=== PATIENT | male | born 1960 | race Caucasian/White ===

== ENCOUNTER → 2020-12-03 09:00 | Outpatient (REF) | payer MEDICARE, SELFPAY | LOC: OLS.SANC 09:00 | PROVIDERS: Visit Provider Family Medicine | DX: R60.0 Localized edema (principal); T14.8XXA Other injury of unspecified body region, initial encounter | CPT/HCPCS: 87070; 87077; 87186; 87205 ==

== ENCOUNTER → 2021-01-14 05:00 | Outpatient (REF) | payer MEDICARE, SELFPAY ==
[2021-01-14 09:40] LABS: Hematocrit 42.8 % (40-54); Hemoglobin 14.4 g/dL (13.0-16.5); Mean Corp Hgb Conc 33.6 g/dL (32-36); Mean Corpuscular Hgb 29.4 pg (27.0-32.0); Mean Corpuscular Volume 87.5 fL (80-94); Mean Platelet Vol. 11.5 fl (6.2-12.0); Platelet Count 141 K/mm3 (150-450); RBC Distribution Width CV 13.1 % (11.6-14.6); RBC Distribution Width SD 41.6 fl (35.1-43.9); Red Blood Count 4.89 M/mm3 (4.6-6.2)
[2021-01-14 10:22] LABS: Valproic Acid (Depakene) Level 51 ug/mL (50-100)
== END ==
LOC: OLS.SANC 05:00
PROVIDERS: Visit Provider Family Medicine
DX: I10 Essential (primary) hypertension (principal); E78.5 Hyperlipidemia, unspecified
CPT/HCPCS: 36415; 80164; 85027

== ENCOUNTER → 2021-04-06 04:00 | Outpatient (REF) | payer MEDICARE, SELFPAY ==
[2021-04-06 07:46] LABS: Cholesterol 178 mg/dL (200); High Density Lipoprotein 38 mg/dL; Triglycerides 166 mg/dL; Very Low Density Lipoprotein 33 mg/dL (5-40)
== END ==
LOC: OLS.SANC 04:00
DX: E78.5 Hyperlipidemia, unspecified (principal)
CPT/HCPCS: 36415; 80061

== ENCOUNTER 2021-06-08 05:00 | Outpatient (REF) | payer MEDICARE, SELFPAY ==
[2021-06-08 07:09] LABS: Anion Gap 7 (5-15); BUN 9 mg/dL (7-18); BUN/Creat Ratio 10.1 RATIO (10-20); Calcium,Total 8.7 mg/dL (8.5-10.1); Chloride 105 mmol/L (98-107); Creatinine, Serum 0.89 mg/dL (0.70-1.30); EST Glomerular Filtration Rate 93 mL/min (>60); Est Glom Filt Rate - Afr Amer 112 mL/min (>60); Glucose 101 mg/dL (74-106); Potassium 3.5 mmol/L (3.5-5.1); Sodium Level 142 mmol/L (136-145)
== END 2021-06-08 23:59 | disposition home or self-care (01) ==
LOC: OLS.SANC 05:00
PROVIDERS: Visit Provider Internal Medicine
DX: E78.5 Hyperlipidemia, unspecified (principal); E87.6 Hypokalemia
CPT/HCPCS: 36415; 80048

== ENCOUNTER → 2021-09-17 05:00 | Outpatient (REF) | payer MEDICARE, MEDICAID, SELFPAY ==
[2021-09-17 09:33] LABS: Vitamin D,25 Hydroxy 65.4 ng/mL
[2021-09-17 09:34] LABS: Anion Gap 5 (5-15); BUN 23 mg/dL (7-18); BUN/Creat Ratio 19.3 RATIO (10-20); Calcium,Total 9.2 mg/dL (8.5-10.1); Chloride 105 mmol/L (98-107); Creatinine, Serum 1.19 mg/dL (0.70-1.30); EST Glomerular Filtration Rate 67 mL/min (>60); Est Glom Filt Rate - Afr Amer 81 mL/min (>60); Glucose 125 mg/dL (74-106); Potassium 4.6 mmol/L (3.5-5.1); Sodium Level 138 mmol/L (136-145)
== END ==
LOC: OLS.SANC 05:00
PROVIDERS: Visit Provider Family Medicine
DX: I10 Essential (primary) hypertension (principal); E55.9 Vitamin D deficiency, unspecified; E78.5 Hyperlipidemia, unspecified
CPT/HCPCS: 36415; 80048; 82306

== ENCOUNTER → 2021-09-27 04:00 | Outpatient (REF) | payer MEDICARE, MEDICAID, SELFPAY ==
[2021-09-27 09:28] LABS: Hematocrit 43.6 % (40-54); Hemoglobin 14.7 g/dL (13.0-16.5); Mean Corp Hgb Conc 33.7 g/dL (32-36); Mean Corpuscular Hgb 31.7 pg (27.0-32.0); Mean Corpuscular Volume 94.2 fL (80-94); Mean Platelet Vol. 11.7 fl (6.2-12.0); Platelet Count 201 K/mm3 (150-450); RBC Distribution Width CV 12.9 % (11.6-14.6); RBC Distribution Width SD 43.9 fl (35.1-43.9); Red Blood Count 4.63 M/mm3 (4.6-6.2); White Blood Count 9.3 K/mm3 (4.4-11.0)
[2021-09-27 10:06] LABS: Valproic Acid (Depakene) Level 56 ug/mL (50-100)
[2021-09-27 10:10] LABS: Cholesterol 137 mg/dL (200); High Density Lipoprotein 47 mg/dL; Triglycerides 116 mg/dL; Very Low Density Lipoprotein 23 mg/dL (5-40)
== END ==
LOC: OLS.SANC 04:00
PROVIDERS: Referring Provider Family Medicine; Visit Provider Family Medicine
DX: I10 Essential (primary) hypertension (principal); E78.5 Hyperlipidemia, unspecified
CPT/HCPCS: 36415; 80061; 80164; 85027

== ENCOUNTER → 2021-11-17 | Outpatient (REF) | payer MEDICARE, MEDICAID, SELFPAY ==
[2021-11-17 09:25] LABS: Anion Gap 5 (5-15); BUN 28 mg/dL (7-18); BUN/Creat Ratio 22.6 RATIO (10-20); Calcium,Total 8.6 mg/dL (8.5-10.1); Chloride 107 mmol/L (98-107); Creatinine, Serum 1.24 mg/dL (0.70-1.30); EST Glomerular Filtration Rate 63 mL/min (>60); Est Glom Filt Rate - Afr Amer 77 mL/min (>60); Glucose 116 mg/dL (74-106); Potassium 4.8 mmol/L (3.5-5.1); Sodium Level 137 mmol/L (136-145)
== END ==
LOC: OLS.SANC 05:00
PROVIDERS: Visit Provider Family Medicine
DX: I10 Essential (primary) hypertension (principal); E78.5 Hyperlipidemia, unspecified; E87.6 Hypokalemia
CPT/HCPCS: 36415; 80048

== ENCOUNTER → 2022-01-17 | Outpatient (REF) | payer MEDICARE, MEDICAID, SELFPAY ==
[2022-01-17 09:28] LABS: Anion Gap 8 (5-15); BUN 23 mg/dL (7-18); BUN/Creat Ratio 19.3 RATIO (10-20); Calcium,Total 8.9 mg/dL (8.5-10.1); Chloride 100 mmol/L (98-107); Creatinine, Serum 1.19 mg/dL (0.70-1.30); EST Glomerular Filtration Rate 67 mL/min (>60); Est Glom Filt Rate - Afr Amer 80 mL/min (>60); Glucose 120 mg/dL (74-106); Potassium 4.7 mmol/L (3.5-5.1); Sodium Level 136 mmol/L (136-145)
== END ==
LOC: OLS.SANC 04:00
PROVIDERS: Referring Provider Family Medicine; Visit Provider Family Medicine
DX: Z79.899 Other long term (current) drug therapy (principal)
CPT/HCPCS: 36415; 80048

== ENCOUNTER → 2022-02-10 | Outpatient (REF) | payer MEDICARE, MEDICAID, SELFPAY ==
[2022-02-10 09:39] LABS: Absolute Lymphocyte Count 3.53 X10^3/uL (0.83-4.51); Absolute Neutrophil Count 3.4 X10^3/uL (2.0-7.7); Basophil# 0.07 X10^3/uL; Basophil% 0.9 % (0-1); Eosinophils% 3.8 % (0-5); Hematocrit 40.3 % (40-54); Hemoglobin 13.8 g/dL (13.0-16.5); Lymphocyte # 3.53 X10^3/ul (0.83-4.51); Lymphocyte % 44.5 % (19-41); Mean Corp Hgb Conc 34.2 g/dL (32-36); Mean Corpuscular Hgb 31.7 pg (27.0-32.0); Mean Corpuscular Volume 92.4 fL (80-94); Mean Platelet Vol. 11.2 fl (6.2-12.0); Monocyte# 0.59 X10^3/uL; Monocyte% 7.4 % (0-10); NRBC Flagged by Analyzer 0 % (0-5); Neutrophil % 42.8 % (47-70); Platelet Count 165 K/mm3 (150-450); RBC Distribution Width CV 12.7 % (11.6-14.6); RBC Distribution Width SD 41.3 fl (35.1-43.9); Red Blood Count 4.36 M/mm3 (4.6-6.2); White Blood Count 7.9 K/mm3 (4.4-11.0)
[2022-02-10 10:24] LABS: AST(SGOT) 14 U/L (15-37); Alanine Aminotransfer ALT/SGPT 26 U/L (16-61); Albumin, Serum 3.3 g/dL (3.2-5.0); Alkaline Phosphatase 69 U/L (45-117); Bilirubin, Direct 0.12 mg/dL (0.00-0.30); Globulin 3.3 g/dL (2.2-4.2); Protein, Total 6.6 g/dL (6.4-8.2)
== END ==
LOC: OLS.SANC 05:00
PROVIDERS: Visit Provider Family Medicine
DX: L97.221 Non-pressure chronic ulcer of left calf limited to breakdown of skin (principal)
CPT/HCPCS: 36415; 80076; 85025

== ENCOUNTER → 2022-02-17 | Outpatient (REF) | payer MEDICARE, MEDICAID, SELFPAY ==
[2022-02-17 08:59] LABS: Anion Gap 7 (5-15); BUN 26 mg/dL (7-18); BUN/Creat Ratio 20.6 RATIO (10-20); Calcium,Total 8.9 mg/dL (8.5-10.1); Chloride 102 mmol/L (98-107); Creatinine, Serum 1.26 mg/dL (0.70-1.30); EST Glomerular Filtration Rate 62 mL/min (>60); Est Glom Filt Rate - Afr Amer 75 mL/min (>60); Glucose 117 mg/dL (74-106); Potassium 4.8 mmol/L (3.5-5.1); Sodium Level 137 mmol/L (136-145)
== END ==
LOC: OLS.SANC 05:00
PROVIDERS: Visit Provider Family Medicine
DX: L03.115 Cellulitis of right lower limb (principal); L03.116 Cellulitis of left lower limb; M25.50 Pain in unspecified joint
CPT/HCPCS: 36415; 80048

== ENCOUNTER → 2022-03-14 | Outpatient (REF) | payer MEDICARE, MEDICAID, SELFPAY ==
[2022-03-14 10:30] LABS: Hematocrit 40.9 % (40-54); Hemoglobin 14.2 g/dL (13.0-16.5); Mean Corp Hgb Conc 34.7 g/dL (32-36); Mean Corpuscular Hgb 32.1 pg (27.0-32.0); Mean Corpuscular Volume 92.5 fL (80-94); Mean Platelet Vol. 11.6 fl (6.2-12.0); Platelet Count 187 K/mm3 (150-450); RBC Distribution Width SD 43.4 fl (35.1-43.9); Red Blood Count 4.42 M/mm3 (4.6-6.2); White Blood Count 8.7 K/mm3 (4.4-11.0)
[2022-03-14 10:44] LABS: Cholesterol 144 mg/dL (200); High Density Lipoprotein 42 mg/dL; Triglycerides 142 mg/dL; Very Low Density Lipoprotein 28 mg/dL (5-40)
[2022-03-14 10:45] LABS: Valproic Acid (Depakene) Level 35 ug/mL (50-100)
== END ==
LOC: OLS.SANC 05:00
PROVIDERS: Visit Provider Internal Medicine
DX: I10 Essential (primary) hypertension (principal); E78.5 Hyperlipidemia, unspecified
CPT/HCPCS: 36415; 80061; 80164; 85027

== ENCOUNTER → 2022-04-19 | Outpatient (REF) | payer MEDICARE, MEDICAID, SELFPAY ==
[2022-04-19 10:17] LABS: Anion Gap 7 (5-15); BUN 30 mg/dL (7-18); BUN/Creat Ratio 23.6 RATIO (10-20); Calcium,Total 9.1 mg/dL (8.5-10.1); Chloride 107 mmol/L (98-107); Creatinine, Serum 1.27 mg/dL (0.70-1.30); EST Glomerular Filtration Rate 62 mL/min (>60); Est Glom Filt Rate - Afr Amer 75 mL/min (>60); Glucose 159 mg/dL (74-106); Potassium 5.7 mmol/L (3.5-5.1); Sodium Level 135 mmol/L (136-145)
== END ==
LOC: OLS.SANC 07:35
PROVIDERS: Visit Provider Internal Medicine
DX: I10 Essential (primary) hypertension (principal); E78.5 Hyperlipidemia, unspecified
CPT/HCPCS: 36415; 80048

== ENCOUNTER → 2022-04-22 | Outpatient (REF) | payer MEDICARE, MEDICAID, SELFPAY ==
[2022-04-22 09:38] LABS: Anion Gap 8 (5-15); BUN 33 mg/dL (7-18); BUN/Creat Ratio 24.3 RATIO (10-20); Chloride 103 mmol/L (98-107); Creatinine, Serum 1.36 mg/dL (0.70-1.30); EST Glomerular Filtration Rate 57 mL/min (>60); Est Glom Filt Rate - Afr Amer 69 mL/min (>60); Glucose 154 mg/dL (74-106); Potassium 4.9 mmol/L (3.5-5.1); Sodium Level 136 mmol/L (136-145)
== END ==
LOC: OLS.SANC 05:00
PROVIDERS: Visit Provider Internal Medicine
DX: M25.50 Pain in unspecified joint (principal)
CPT/HCPCS: 36415; 80048

== ENCOUNTER → 2022-04-29 | Outpatient (REF) | payer MEDICARE, MEDICAID, SELFPAY ==
[2022-04-29 07:59] LABS: Hematocrit 38.3 % (40-54); Hemoglobin 12.6 g/dL (13.0-16.5); Mean Corp Hgb Conc 32.9 g/dL (32-36); Mean Corpuscular Hgb 31.1 pg (27.0-32.0); Mean Corpuscular Volume 94.6 fL (80-94); Mean Platelet Vol. 11.1 fl (6.2-12.0); Platelet Count 165 K/mm3 (150-450); RBC Distribution Width CV 13.1 % (11.6-14.6); RBC Distribution Width SD 44.2 fl (35.1-43.9); Red Blood Count 4.05 M/mm3 (4.6-6.2); White Blood Count 8.7 K/mm3 (4.4-11.0)
[2022-04-29 08:15] LABS: Anion Gap 6 (5-15); BUN 30 mg/dL (7-18); BUN/Creat Ratio 18.6 RATIO (10-20); Calcium,Total 8.7 mg/dL (8.5-10.1); Chloride 105 mmol/L (98-107); Creatinine, Serum 1.61 mg/dL (0.70-1.30); EST Glomerular Filtration Rate 47 mL/min (>60); Est Glom Filt Rate - Afr Amer 57 mL/min (>60); Glucose 125 mg/dL (74-106); Potassium 4.6 mmol/L (3.5-5.1); Sodium Level 137 mmol/L (136-145)
== END ==
LOC: OLS.SANC 05:00
PROVIDERS: Visit Provider Internal Medicine
DX: I10 Essential (primary) hypertension (principal); E78.5 Hyperlipidemia, unspecified
CPT/HCPCS: 36415; 80048; 85027

== ENCOUNTER → 2022-05-13 | Outpatient (REF) | payer MEDICARE, MEDICAID, SELFPAY ==
[2022-05-13 09:07] LABS: Hematocrit 39.6 % (40-54); Hemoglobin 12.9 g/dL (13.0-16.5); Mean Corp Hgb Conc 32.6 g/dL (32-36); Mean Corpuscular Hgb 31.3 pg (27.0-32.0); Mean Corpuscular Volume 96.1 fL (80-94); Mean Platelet Vol. 11.8 fl (6.2-12.0); Platelet Count 172 K/mm3 (150-450); RBC Distribution Width CV 13.2 % (11.6-14.6); RBC Distribution Width SD 45.3 fl (35.1-43.9); Red Blood Count 4.12 M/mm3 (4.6-6.2)
[2022-05-13 09:16] LABS: Anion Gap 8 (5-15); BUN 26 mg/dL (7-18); BUN/Creat Ratio 18.6 RATIO (10-20); Chloride 104 mmol/L (98-107); EST Glomerular Filtration Rate 55 mL/min (>60); Est Glom Filt Rate - Afr Amer 67 mL/min (>60); Glucose 116 mg/dL (74-106); Potassium 4.9 mmol/L (3.5-5.1); Sodium Level 139 mmol/L (136-145)
== END ==
LOC: OLS.SANC 05:00
PROVIDERS: Visit Provider Internal Medicine
DX: I10 Essential (primary) hypertension (principal); E78.5 Hyperlipidemia, unspecified
CPT/HCPCS: 36415; 80048; 85027

== ENCOUNTER → 2022-05-20 | Outpatient (REF) | payer MEDICARE, MEDICAID, SELFPAY ==
[2022-05-20 09:46] LABS: Anion Gap 7 (5-15); BUN 31 mg/dL (7-18); BUN/Creat Ratio 20.7 RATIO (10-20); Calcium,Total 8.9 mg/dL (8.5-10.1); Chloride 105 mmol/L (98-107); EST Glomerular Filtration Rate 51 mL/min (>60); Est Glom Filt Rate - Afr Amer 62 mL/min (>60); Glucose 144 mg/dL (74-106); Potassium 4.9 mmol/L (3.5-5.1); Sodium Level 138 mmol/L (136-145)
== END ==
LOC: OLS.SANC 05:00
PROVIDERS: Visit Provider Internal Medicine
DX: I10 Essential (primary) hypertension (principal); E78.5 Hyperlipidemia, unspecified
CPT/HCPCS: 36415; 80048

== ENCOUNTER → 2022-06-30 | Outpatient (REF) | payer MEDICARE, MEDICAID, SELFPAY ==
[2022-06-30 08:56] LABS: Hematocrit 35.6 % (40-54); Hemoglobin 11.7 g/dL (13.0-16.5); Mean Corp Hgb Conc 32.9 g/dL (32-36); Mean Corpuscular Volume 94.2 fL (80-94); Mean Platelet Vol. 10.6 fl (6.2-12.0); Platelet Count 277 K/mm3 (150-450); RBC Distribution Width SD 46.9 fl (35.1-43.9); Red Blood Count 3.78 M/mm3 (4.6-6.2); White Blood Count 6.2 K/mm3 (4.4-11.0)
[2022-06-30 09:14] LABS: ALB/GLOB Ratio 0.8 RATIO (0.9-2.4); AST(SGOT) 15 U/L (15-37); Alanine Aminotransfer ALT/SGPT 24 U/L (16-61); Albumin, Serum 2.7 g/dL (3.2-5.0); Alkaline Phosphatase 77 U/L (45-117); Amylase 62 U/L (25-115); Anion Gap 8 (5-15); BUN 14 mg/dL (7-18); BUN/Creat Ratio 15.4 RATIO (10-20); Calcium,Total 8.9 mg/dL (8.5-10.1); Chloride 103 mmol/L (98-107); Creatinine, Serum 0.91 mg/dL (0.70-1.30); EST Glomerular Filtration Rate 91 mL/min (>60); Est Glom Filt Rate - Afr Amer 110 mL/min (>60); Globulin 3.5 g/dL (2.2-4.2); Glucose 120 mg/dL (74-106); Lipase 777 U/L (73-393); Potassium 4.5 mmol/L (3.5-5.1); Protein, Total 6.2 g/dL (6.4-8.2); Sodium Level 139 mmol/L (136-145)
== END ==
LOC: OLS.SANC 05:00
PROVIDERS: Visit Provider Family Medicine
DX: I10 Essential (primary) hypertension (principal); E87.6 Hypokalemia; K85.90 Acute pancreatitis without necrosis or infection, unspecified
CPT/HCPCS: 36415; 80053; 82150; 83690; 85027

== ENCOUNTER → 2022-07-18 | Outpatient (REF) | payer MEDICARE, MEDICAID, SELFPAY ==
[2022-07-19 08:58] LABS: Color, Urine Brown (Yellow); Glucose, Dipstick Normal (Normal); Ketone-Dipstick 15 mg/dl (Negative); Leukocyte Esterase-Dipstick 500 /ul (Negative); Nitrite-Dipstick Positive (Negative); Occult Blood-Urine 250 /ul (Negative); Protein-Dipstick 100 mg/dl (Negative); Urine Bilirubin Dipstick Negative (Negative); Urine Clarity Turbid (Clear); Urine Urobilinogen 4 mg/dl (Normal)
== END ==
LOC: OLS.SANC 20:00
PROVIDERS: Visit Provider Internal Medicine
DX: R39.9 Unspecified symptoms and signs involving the genitourinary system (principal)
CPT/HCPCS: 81002; 87077; 87086; 87088; 87186

== ENCOUNTER → 2022-07-18 | Outpatient (REF) | payer MEDICARE, MEDICAID, SELFPAY ==
[2022-07-18 08:35] LABS: Valproic Acid (Depakene) Level 42 ug/mL (50-100)
== END ==
LOC: OLS.SANC 05:00
PROVIDERS: Visit Provider Internal Medicine
DX: I10 Essential (primary) hypertension (principal); E78.5 Hyperlipidemia, unspecified; Z79.899 Other long term (current) drug therapy
CPT/HCPCS: 36415; 80164

== ENCOUNTER → 2022-07-28 | Outpatient (REF) | payer MEDICARE, MEDICAID, SELFPAY ==
[2022-07-28 08:23] LABS: Hematocrit 35.7 % (40-54); Hemoglobin 11.6 g/dL (13.0-16.5); Mean Corp Hgb Conc 32.5 g/dL (32-36); Mean Corpuscular Hgb 30.4 pg (27.0-32.0); Mean Corpuscular Volume 93.5 fL (80-94); Mean Platelet Vol. 11.1 fl (6.2-12.0); Platelet Count 204 K/mm3 (150-450); RBC Distribution Width CV 14.1 % (11.6-14.6); RBC Distribution Width SD 47.2 fl (35.1-43.9); Red Blood Count 3.82 M/mm3 (4.6-6.2); White Blood Count 7.2 K/mm3 (4.4-11.0)
[2022-07-28 08:34] LABS: Anion Gap 4 (5-15); BUN 13 mg/dL (7-18); BUN/Creat Ratio 13.1 RATIO (10-20); Calcium,Total 8.9 mg/dL (8.5-10.1); Chloride 107 mmol/L (98-107); Creatinine, Serum 0.99 mg/dL (0.70-1.30); EST Glomerular Filtration Rate 82 mL/min (>60); Est Glom Filt Rate - Afr Amer 99 mL/min (>60); Glucose 95 mg/dL (74-106); Potassium 4.4 mmol/L (3.5-5.1); Sodium Level 136 mmol/L (136-145)
== END ==
LOC: OLS.SANC 05:00
PROVIDERS: Visit Provider Internal Medicine
DX: I10 Essential (primary) hypertension (principal); E78.5 Hyperlipidemia, unspecified
CPT/HCPCS: 36415; 80048; 85027

== ENCOUNTER → 2022-08-01 | Outpatient (REF) | payer MEDICARE, MEDICAID, SELFPAY ==
[2022-08-01 10:38] LABS: AST(SGOT) 18 U/L (15-37); Alanine Aminotransfer ALT/SGPT 26 U/L (16-61); Albumin, Serum 3.1 g/dL (3.2-5.0); Alkaline Phosphatase 62 U/L (45-117); Amylase 50 U/L (25-115); Bilirubin, Direct 0.14 mg/dL (0.00-0.30); Globulin 3.3 g/dL (2.2-4.2); Lipase 45 U/L (13-75); Protein, Total 6.4 g/dL (6.4-8.2)
== END ==
LOC: OLS.SANC 04:00
PROVIDERS: Referring Provider Internal Medicine; Visit Provider Internal Medicine
DX: I10 Essential (primary) hypertension (principal); E78.5 Hyperlipidemia, unspecified
CPT/HCPCS: 36415; 80076; 82150; 83690

== ENCOUNTER → 2022-08-22 | Outpatient (REF) | payer MEDICARE, MEDICAID, SELFPAY ==
[2022-08-22 09:20] LABS: Valproic Acid (Depakene) Level 40 ug/mL (50-100)
== END ==
LOC: OLS.SANC 04:00
PROVIDERS: Referring Provider Internal Medicine; Visit Provider Internal Medicine
DX: E78.5 Hyperlipidemia, unspecified (principal); Z79.899 Other long term (current) drug therapy
CPT/HCPCS: 36415; 80164

== ENCOUNTER → 2022-09-07 | Outpatient (REF) | payer MEDICARE, MEDICAID, SELFPAY | LOC: OLS.SANC 21:00 | PROVIDERS: Visit Provider Internal Medicine | DX: L97.912 Non-pressure chronic ulcer of unspecified part of right lower leg with fat layer exposed (principal) | CPT/HCPCS: 87070; 87077; 87186; 87205 ==

== ENCOUNTER → 2022-09-12 | Outpatient (REF) | payer MEDICARE, MEDICAID, SELFPAY ==
[2022-09-12 09:47] LABS: Hematocrit 40.8 % (40-54); Hemoglobin 13.7 g/dL (13.0-16.5); Mean Corp Hgb Conc 33.6 g/dL (32-36); Mean Corpuscular Hgb 29.8 pg (27.0-32.0); Mean Corpuscular Volume 88.9 fL (80-94); Mean Platelet Vol. 10.6 fl (6.2-12.0); Platelet Count 188 K/mm3 (150-450); RBC Distribution Width SD 43.8 fl (35.1-43.9); Red Blood Count 4.59 M/mm3 (4.6-6.2); White Blood Count 9.1 K/mm3 (4.4-11.0)
[2022-09-12 09:55] LABS: Valproic Acid (Depakene) Level 29 ug/mL (50-100)
[2022-09-12 10:00] LABS: Cholesterol 107 mg/dL (200); High Density Lipoprotein 41 mg/dL; Triglycerides 243 mg/dL; Very Low Density Lipoprotein 49 mg/dL (5-40)
== END ==
LOC: OLS.SANC 05:00
PROVIDERS: Visit Provider Internal Medicine
DX: I10 Essential (primary) hypertension (principal); E78.5 Hyperlipidemia, unspecified; Z87.820 Personal history of traumatic brain injury
CPT/HCPCS: 36415; 80061; 80164; 85027

== ENCOUNTER → 2022-10-24 | Outpatient (REF) | payer MEDICARE, MEDICAID, SELFPAY ==
[2022-10-24 09:36] LABS: Anion Gap 4 (5-15); BUN 21 mg/dL (7-18); BUN/Creat Ratio 17.4 RATIO (10-20); Chloride 104 mmol/L (98-107); Creatinine, Serum 1.21 mg/dL (0.70-1.30); EST Glomerular Filtration Rate 65 mL/min (>60); Est Glom Filt Rate - Afr Amer 79 mL/min (>60); Glucose 101 mg/dL (74-106); Potassium 4.6 mmol/L (3.5-5.1); Sodium Level 137 mmol/L (136-145)
== END ==
LOC: OLS.SANC 05:00
PROVIDERS: Visit Provider Internal Medicine
DX: I10 Essential (primary) hypertension (principal); G81.91 Hemiplegia, unspecified affecting right dominant side; E78.5 Hyperlipidemia, unspecified; E87.6 Hypokalemia
CPT/HCPCS: 36415; 80048

== ENCOUNTER → 2022-11-21 | Outpatient (REF) | payer MEDICARE, MEDICAID, SELFPAY ==
[2022-11-21 10:22] LABS: Valproic Acid (Depakene) Level 35 ug/mL (50-100)
== END ==
LOC: OLS.SANC 05:00
PROVIDERS: Visit Provider Internal Medicine
DX: Z79.899 Other long term (current) drug therapy (principal)
CPT/HCPCS: 36415; 80164

== ENCOUNTER → 2022-11-28 | Outpatient (REF) | payer MEDICARE, MEDICAID, SELFPAY ==
[2022-11-28 09:13] LABS: Hematocrit 43.4 % (40-54); Hemoglobin 14.2 g/dL (13.0-16.5); Mean Corp Hgb Conc 32.7 g/dL (32-36); Mean Corpuscular Hgb 29.3 pg (27.0-32.0); Mean Corpuscular Volume 89.7 fL (80-94); Mean Platelet Vol. 11.6 fl (6.2-12.0); Platelet Count 172 K/mm3 (150-450); RBC Distribution Width CV 13.4 % (11.6-14.6); RBC Distribution Width SD 43.9 fl (35.1-43.9); Red Blood Count 4.84 M/mm3 (4.6-6.2); White Blood Count 7.3 K/mm3 (4.4-11.0)
[2022-11-28 09:48] LABS: Anion Gap 7 (5-15); BUN 25 mg/dL (7-18); BUN/Creat Ratio 20.2 RATIO (10-20); Chloride 104 mmol/L (98-107); Creatinine, Serum 1.24 mg/dL (0.70-1.30); EST Glomerular Filtration Rate 63 mL/min (>60); Est Glom Filt Rate - Afr Amer 77 mL/min (>60); Glucose 162 mg/dL (74-106); Potassium 4.3 mmol/L (3.5-5.1); Sodium Level 136 mmol/L (136-145)
== END ==
LOC: OLS.SANC 07:05
PROVIDERS: Visit Provider Internal Medicine
DX: I10 Essential (primary) hypertension (principal); E78.5 Hyperlipidemia, unspecified
CPT/HCPCS: 36415; 80048; 85027

== ENCOUNTER → 2022-12-14 | Outpatient (REF) | payer MEDICARE, MEDICAID, SELFPAY | LOC: OLS.SANC 02:00 | PROVIDERS: Visit Provider Family Medicine | DX: L98.499 Non-pressure chronic ulcer of skin of other sites with unspecified severity (principal) | CPT/HCPCS: 87070; 87077; 87186; 87205 ==

== ENCOUNTER → 2023-01-02 | Outpatient (REF) | payer MEDICARE, MEDICAID, SELFPAY ==
[2023-01-02 09:23] LABS: Valproic Acid (Depakene) Level 35 ug/mL (50-100)
[2023-01-02 09:29] LABS: PSA,Total - Annual Screen 0.62 ng/mL (0.00-4.00)
== END ==
LOC: OLS.SANC 04:00
PROVIDERS: Referring Provider Family Medicine; Visit Provider Family Medicine
DX: F31.9 Bipolar disorder, unspecified (principal); I10 Essential (primary) hypertension; E78.5 Hyperlipidemia, unspecified; Z12.5 Encounter for screening for malignant neoplasm of prostate
CPT/HCPCS: 36415; 80164; 84153; G0103

== ENCOUNTER → 2023-01-09 | Outpatient (REF) | payer MEDICARE, MEDICAID, SELFPAY ==
[2023-01-09 07:42] LABS: Hematocrit 41.8 % (40-54); Hemoglobin 13.6 g/dL (13.0-16.5); Mean Corp Hgb Conc 32.5 g/dL (32-36); Mean Corpuscular Hgb 29.5 pg (27.0-32.0); Mean Corpuscular Volume 90.7 fL (80-94); Mean Platelet Vol. 11.8 fl (6.2-12.0); Platelet Count 166 K/mm3 (150-450); RBC Distribution Width CV 13.2 % (11.6-14.6); RBC Distribution Width SD 42.6 fl (35.1-43.9); Red Blood Count 4.61 M/mm3 (4.6-6.2); White Blood Count 6.8 K/mm3 (4.4-11.0)
[2023-01-09 07:55] LABS: Anion Gap 6 (5-15); BUN 21 mg/dL (7-18); BUN/Creat Ratio 19.3 RATIO (10-20); Calcium,Total 8.8 mg/dL (8.5-10.1); Chloride 104 mmol/L (98-107); Creatinine, Serum 1.09 mg/dL (0.70-1.30); EST Glomerular Filtration Rate 73 mL/min (>60); Est Glom Filt Rate - Afr Amer 89 mL/min (>60); Glucose 169 mg/dL (74-106); PSA,Total - Annual Screen 0.59 ng/mL (0.00-4.00); Potassium 4.1 mmol/L (3.5-5.1); Sodium Level 139 mmol/L (136-145)
== END ==
LOC: OLS.SANC 05:00
PROVIDERS: Visit Provider Internal Medicine
DX: I10 Essential (primary) hypertension (principal); E78.5 Hyperlipidemia, unspecified; Z12.5 Encounter for screening for malignant neoplasm of prostate
CPT/HCPCS: 36415; 80048; 84153; 85027; G0103

== ENCOUNTER → 2023-02-09 | Outpatient (REF) | payer MEDICARE, MEDICAID, SELFPAY ==
[2023-02-09 09:51] LABS: Hematocrit 43.4 % (40-54); Hemoglobin 14.8 g/dL (13.0-16.5); Mean Corp Hgb Conc 34.1 g/dL (32-36); Mean Platelet Vol. 11.3 fl (6.2-12.0); Platelet Count 193 K/mm3 (150-450); RBC Distribution Width CV 13.2 % (11.6-14.6); RBC Distribution Width SD 41.9 fl (35.1-43.9); Red Blood Count 4.93 M/mm3 (4.6-6.2); White Blood Count 7.9 K/mm3 (4.4-11.0)
[2023-02-09 10:05] LABS: ALB/GLOB Ratio 0.9 RATIO (0.9-2.4); AST(SGOT) 20 U/L (15-37); Alanine Aminotransfer ALT/SGPT 31 U/L (16-61); Albumin, Serum 3.4 g/dL (3.2-5.0); Alkaline Phosphatase 92 U/L (45-117); Anion Gap 6 (5-15); BUN 16 mg/dL (7-18); BUN/Creat Ratio 16.3 RATIO (10-20); Calcium,Total 9.2 mg/dL (8.5-10.1); Chloride 104 mmol/L (98-107); Creatinine, Serum 0.98 mg/dL (0.70-1.30); EST Glomerular Filtration Rate 83 mL/min (>60); Est Glom Filt Rate - Afr Amer 100 mL/min (>60); Globulin 3.8 g/dL (2.2-4.2); Glucose 128 mg/dL (74-106); Potassium 4.6 mmol/L (3.5-5.1); Protein, Total 7.2 g/dL (6.4-8.2); Sodium Level 136 mmol/L (136-145)
== END ==
LOC: OLS.SANC 05:00
PROVIDERS: Visit Provider Internal Medicine
DX: I10 Essential (primary) hypertension (principal); E78.5 Hyperlipidemia, unspecified; E87.6 Hypokalemia; G81.91 Hemiplegia, unspecified affecting right dominant side; R60.1 Generalized edema
CPT/HCPCS: 36415; 80053; 85027

== ENCOUNTER → 2023-03-13 | Outpatient (REF) | payer MEDICARE, MEDICAID, SELFPAY ==
[2023-03-13 09:35] LABS: Cholesterol 139 mg/dL (200); High Density Lipoprotein 49 mg/dL; Triglycerides 168 mg/dL; Very Low Density Lipoprotein 34 mg/dL (5-40)
== END ==
LOC: OLS.SANC 04:00
PROVIDERS: Referring Provider Internal Medicine; Visit Provider Internal Medicine
DX: I10 Essential (primary) hypertension (principal); E78.5 Hyperlipidemia, unspecified
CPT/HCPCS: 36415; 80061

== ENCOUNTER → 2023-03-14 | Outpatient (REF) | payer MEDICARE, MEDICAID, SELFPAY ==
[2023-03-14 09:06] LABS: Hematocrit 43.3 % (40-54); Hemoglobin 14.3 g/dL (13.0-16.5); Mean Corpuscular Volume 90.8 fL (80-94); Mean Platelet Vol. 11.3 fl (6.2-12.0); Platelet Count 158 K/mm3 (150-450); RBC Distribution Width CV 13.1 % (11.6-14.6); RBC Distribution Width SD 42.7 fl (35.1-43.9); Red Blood Count 4.77 M/mm3 (4.6-6.2); White Blood Count 6.4 K/mm3 (4.4-11.0)
[2023-03-14 09:28] LABS: ALB/GLOB Ratio 0.9 RATIO (0.9-2.4); AST(SGOT) 23 U/L (15-37); Alanine Aminotransfer ALT/SGPT 36 U/L (16-61); Albumin, Serum 3.3 g/dL (3.2-5.0); Alkaline Phosphatase 85 U/L (45-117); Anion Gap 4 (5-15); BUN 21 mg/dL (7-18); BUN/Creat Ratio 19.6 RATIO (10-20); Calcium,Total 8.7 mg/dL (8.5-10.1); Chloride 104 mmol/L (98-107); Creatinine, Serum 1.07 mg/dL (0.70-1.30); EST Glomerular Filtration Rate 75 mL/min (>60); Est Glom Filt Rate - Afr Amer 91 mL/min (>60); Globulin 3.6 g/dL (2.2-4.2); Glucose 131 mg/dL (74-106); Potassium 4.8 mmol/L (3.5-5.1); Protein, Total 6.9 g/dL (6.4-8.2); Sodium Level 137 mmol/L (136-145)
[2023-03-14 09:36] LABS: Valproic Acid (Depakene) Level 30 ug/mL (50-100)
== END ==
LOC: OLS.SANC 05:00
PROVIDERS: Visit Provider Internal Medicine
DX: I10 Essential (primary) hypertension (principal); E78.5 Hyperlipidemia, unspecified; Z79.899 Other long term (current) drug therapy
CPT/HCPCS: 36415; 80053; 80164; 85027

== ENCOUNTER → 2023-06-12 | Outpatient (REF) | payer MEDICARE, MEDICAID, SELFPAY ==
[2023-06-12 09:46] LABS: Hematocrit 45.2 % (40-54); Hemoglobin 15.1 g/dL (13.0-16.5); Mean Corp Hgb Conc 33.4 g/dL (32-36); Mean Corpuscular Hgb 29.8 pg (27.0-32.0); Mean Corpuscular Volume 89.3 fL (80-94); Mean Platelet Vol. 11.2 fl (6.2-12.0); Platelet Count 154 K/mm3 (150-450); RBC Distribution Width CV 13.2 % (11.6-14.6); RBC Distribution Width SD 41.8 fl (35.1-43.9); Red Blood Count 5.06 M/mm3 (4.6-6.2); White Blood Count 7.2 K/mm3 (4.4-11.0)
[2023-06-12 09:54] LABS: Anion Gap 4 (5-15); BUN 17 mg/dL (7-18); BUN/Creat Ratio 15.7 RATIO (10-20); Calcium,Total 9.5 mg/dL (8.5-10.1); Chloride 105 mmol/L (98-107); Creatinine, Serum 1.08 mg/dL (0.70-1.30); EST Glomerular Filtration Rate 74 mL/min (>60); Est Glom Filt Rate - Afr Amer 90 mL/min (>60); Glucose 118 mg/dL (74-106); Potassium 4.3 mmol/L (3.5-5.1); Sodium Level 136 mmol/L (136-145)
[2023-06-16 07:35] LABS: Hemoglobin A1c 6.5 % (3.8-5.6)
== END ==
LOC: OLS.SANC 05:00
PROVIDERS: Visit Provider Internal Medicine
DX: I11.0 Hypertensive heart disease with heart failure (principal); E78.5 Hyperlipidemia, unspecified; Z79.899 Other long term (current) drug therapy; I50.9 Heart failure, unspecified; J96.10 Chronic respiratory failure, unspecified whether with hypoxia or hypercapnia
CPT/HCPCS: 36415; 80048; 83036; 85027

== ENCOUNTER → 2023-06-27 | Outpatient (REF) | payer MEDICARE, MEDICAID, SELFPAY | LOC: OLS.SANC 07:30 | PROVIDERS: Visit Provider Internal Medicine | DX: S91.104A Unspecified open wound of right lesser toe(s) without damage to nail, initial encounter (principal) | CPT/HCPCS: 87070; 87077; 87186; 87205 ==

== ENCOUNTER → 2023-06-28 | Outpatient (REF) | payer MEDICARE, MEDICAID, SELFPAY | LOC: OLS.SANC 05:40 | PROVIDERS: Visit Provider Internal Medicine | DX: L08.9 Local infection of the skin and subcutaneous tissue, unspecified (principal) | CPT/HCPCS: 87070; 87077; 87186; 87205 ==

== ENCOUNTER → 2023-07-16 05:00 | Outpatient (REF) | payer MEDICARE, MEDICAID, SELFPAY ==
[2023-07-17 09:37] LABS: Mucous, Urine 0 SEEN /hpf (<or=2+); Red Blood Cells-Urine 0 SEEN /hpf (0-5)
[2023-07-17 10:49] LABS: Color, Urine Yellow (Yellow); Glucose, Dipstick Normal (Normal); Ketone-Dipstick 5 mg/dl (Negative); Leukocyte Esterase-Dipstick 500 /ul (Negative); Nitrite-Dipstick Positive (Negative); Occult Blood-Urine Negative /ul (Negative); Protein-Dipstick Negative (Negative); Specific Gravity, Urine 1.015 (1.002-1.030); Urine Bilirubin Dipstick Negative (Negative); Urine Clarity Sl. Cloudy (Clear); Urine Urobilinogen 1 mg/dl (Normal)
[2023-07-17 11:05] LABS: Bacteria 2+ /hpf (None Seen); Squamous Epithelial Cells - UA 0-5 SEEN /hpf (0-5); White Blood Cells 25-50 SEEN /hpf (0-5)
== END ==
LOC: OLS.SANC 05:00
PROVIDERS: Referring Provider Internal Medicine; Visit Provider Internal Medicine
DX: R53.83 Other fatigue (principal); R35.0 Frequency of micturition; R30.9 Painful micturition, unspecified
CPT/HCPCS: 81001; 87077; 87086; 87088; 87186

== ENCOUNTER → 2023-07-31 04:00 | Outpatient (REF) | payer MEDICARE, MEDICAID, SELFPAY ==
[2023-07-31 10:08] LABS: Valproic Acid (Depakene) Level 36 ug/mL (50-100)
== END ==
LOC: OLS.SANC 04:00
PROVIDERS: Referring Provider Internal Medicine; Visit Provider Internal Medicine
DX: I10 Essential (primary) hypertension (principal); E78.5 Hyperlipidemia, unspecified; Z79.899 Other long term (current) drug therapy
CPT/HCPCS: 36415; 80164

== ENCOUNTER → 2023-09-12 05:00 | Outpatient (REF) | payer MEDICARE, MEDICAID, SELFPAY ==
[2023-09-12 09:20] LABS: Hematocrit 44.1 % (40-54); Hemoglobin 14.7 g/dL (13.0-16.5); Mean Corp Hgb Conc 33.3 g/dL (32-36); Mean Corpuscular Hgb 30.2 pg (27.0-32.0); Mean Corpuscular Volume 90.7 fL (80-94); Mean Platelet Vol. 11.4 fl (6.2-12.0); Platelet Count 120 K/mm3 (150-450); RBC Distribution Width SD 41.6 fl (35.1-43.9); Red Blood Count 4.86 M/mm3 (4.6-6.2); White Blood Count 5.8 K/mm3 (4.4-11.0)
[2023-09-12 09:47] LABS: Anion Gap 6 (5-15); BUN 15 mg/dL (7-18); Calcium,Total 9.5 mg/dL (8.5-10.1); Chloride 105 mmol/L (98-107); Cholesterol 103 mg/dL (200); Creatinine, Serum 0.94 mg/dL (0.70-1.30); EST Glomerular Filtration Rate 87 mL/min (>60); Est Glom Filt Rate - Afr Amer 105 mL/min (>60); Glucose 107 mg/dL (74-106); High Density Lipoprotein 36 mg/dL; Potassium 4.3 mmol/L (3.5-5.1); Sodium Level 138 mmol/L (136-145); Triglycerides 107 mg/dL; Very Low Density Lipoprotein 21 mg/dL (5-40)
[2023-09-12 10:03] LABS: Hemoglobin A1c 6.3 % (3.8-5.6)
== END ==
LOC: OLS.SANC 05:00
PROVIDERS: Visit Provider Internal Medicine
DX: I10 Essential (primary) hypertension (principal); E87.6 Hypokalemia; R60.0 Localized edema; E78.5 Hyperlipidemia, unspecified
CPT/HCPCS: 36415; 80048; 80061; 83036; 85027

== ENCOUNTER → 2023-09-13 05:00 | Outpatient (REF) | payer MEDICARE, MEDICAID, SELFPAY ==
[2023-09-13 09:06] LABS: Valproic Acid (Depakene) Level 43 ug/mL (50-100)
== END ==
LOC: OLS.SANC 05:00
PROVIDERS: Visit Provider Internal Medicine
DX: I10 Essential (primary) hypertension (principal); E78.5 Hyperlipidemia, unspecified
CPT/HCPCS: 36415; 80164

== ENCOUNTER → 2023-10-16 05:00 | Outpatient (REF) | payer MEDICARE, MEDICAID, SELFPAY ==
[2023-10-16 09:42] LABS: Hemoglobin A1c 6.1 % (3.8-5.6)
== END ==
LOC: OLS.SANC 05:00
PROVIDERS: Referring Provider Family Medicine; Visit Provider Family Medicine
DX: E11.9 Type 2 diabetes mellitus without complications (principal); Z79.899 Other long term (current) drug therapy
CPT/HCPCS: 36415; 83036

== ENCOUNTER → 2024-01-09 | Outpatient (REF) | payer MEDICARE, MEDICAID, SELFPAY ==
[2024-01-09 09:31] LABS: Hematocrit 45.1 % (40-54); Hemoglobin 15.3 g/dL (13.0-16.5); Mean Corp Hgb Conc 33.9 g/dL (32-36); Mean Corpuscular Hgb 30.4 pg (27.0-32.0); Mean Corpuscular Volume 89.5 fL (80-94); Mean Platelet Vol. 10.9 fl (6.2-12.0); Platelet Count 133 K/mm3 (150-450); RBC Distribution Width CV 13.2 % (11.6-14.6); RBC Distribution Width SD 41.9 fl (35.1-43.9); Red Blood Count 5.04 M/mm3 (4.6-6.2)
[2024-01-09 10:05] LABS: Cholesterol 122 mg/dL (200); High Density Lipoprotein 46 mg/dL; Triglycerides 158 mg/dL; Very Low Density Lipoprotein 32 mg/dL (5-40)
[2024-01-09 10:07] LABS: Valproic Acid (Depakene) Level 62 ug/mL (50-100)
== END ==
LOC: OLS.SANC 05:00
PROVIDERS: Visit Provider Internal Medicine
DX: I10 Essential (primary) hypertension (principal); E78.5 Hyperlipidemia, unspecified; G81.91 Hemiplegia, unspecified affecting right dominant side
CPT/HCPCS: 36415; 80061; 80164; 85027

== ENCOUNTER → 2024-01-29 | Outpatient (REF) | payer MEDICARE, MEDICAID, SELFPAY ==
[2024-01-29 10:29] LABS: Valproic Acid (Depakene) Level 72 ug/mL (50-100)
== END ==
LOC: OLS.SANC 05:00
PROVIDERS: Visit Provider Internal Medicine
DX: I10 Essential (primary) hypertension (principal); E78.5 Hyperlipidemia, unspecified; Z79.899 Other long term (current) drug therapy
CPT/HCPCS: 36415; 80164

== ENCOUNTER → 2024-03-13 04:40 | Outpatient (REF) | payer MEDICARE, MEDICAID, SELFPAY ==
[2024-03-13 09:11] LABS: Hematocrit 44.4 % (40-54); Hemoglobin 15.2 g/dL (13.0-16.5); Mean Corp Hgb Conc 34.2 g/dL (32-36); Mean Corpuscular Volume 90.4 fL (80-94); Mean Platelet Vol. 10.8 fl (6.2-12.0); Platelet Count 149 K/mm3 (150-450); RBC Distribution Width CV 13.2 % (11.6-14.6); RBC Distribution Width SD 42.7 fl (35.1-43.9); Red Blood Count 4.91 M/mm3 (4.6-6.2); White Blood Count 8.1 K/mm3 (4.4-11.0)
[2024-03-13 09:27] LABS: ALB/GLOB Ratio 1.1 RATIO (0.9-2.4); AST(SGOT) 37 U/L (15-37); Alanine Aminotransfer ALT/SGPT 53 U/L (16-61); Albumin, Serum 3.5 g/dL (3.2-5.0); Alkaline Phosphatase 65 U/L (45-117); Anion Gap 7 (5-15); BUN 17 mg/dL (7-18); Calcium,Total 9.1 mg/dL (8.5-10.1); Chloride 104 mmol/L (98-107); Cholesterol 112 mg/dL (200); Creatinine, Serum 1.06 mg/dL (0.70-1.30); EST Glomerular Filtration Rate 75 mL/min (>60); Est Glom Filt Rate - Afr Amer 91 mL/min (>60); Globulin 3.2 g/dL (2.2-4.2); Glucose 107 mg/dL (74-106); High Density Lipoprotein 41 mg/dL; Potassium 4.7 mmol/L (3.5-5.1); Protein, Total 6.7 g/dL (6.4-8.2); Sodium Level 137 mmol/L (136-145); Triglycerides 101 mg/dL; Very Low Density Lipoprotein 20 mg/dL (5-40)
[2024-03-13 12:34] LABS: Hemoglobin A1c 6.2 % (3.8-5.6)
== END ==
LOC: OLS.SANC 04:40
PROVIDERS: Referring Provider Internal Medicine; Visit Provider Internal Medicine
DX: E78.5 Hyperlipidemia, unspecified (principal); Z79.899 Other long term (current) drug therapy
CPT/HCPCS: 36415; 80053; 80061; 83036; 85027

== ENCOUNTER → 2024-06-10 | Outpatient (REF) | payer MEDICARE, MEDICAID, SELFPAY ==
[2024-06-10 08:30] LABS: Hematocrit 44.8 % (40-54); Hemoglobin 15.5 g/dL (13.0-16.5); Mean Corp Hgb Conc 34.6 g/dL (32-36); Mean Corpuscular Hgb 31.9 pg (27.0-32.0); Mean Corpuscular Volume 92.2 fL (80-94); Mean Platelet Vol. 11.5 fl (6.2-12.0); Platelet Count 130 K/mm3 (150-450); RBC Distribution Width CV 13.7 % (11.6-14.6); RBC Distribution Width SD 45.3 fl (35.1-43.9); Red Blood Count 4.86 M/mm3 (4.6-6.2); White Blood Count 7.7 K/mm3 (4.4-11.0)
[2024-06-10 11:10] LABS: Anion Gap 14 (5-15); BUN 17 mg/dL (4-19); BUN/Creat Ratio 14.5 RATIO (10-20); Calcium 9.5 mg/dL (7.6-11.0); Chloride 99 mmol/L (96-108); EST Glomerular Filtration Rate 69 (>60); Glucose 107 mg/dL (70-99); Potassium 4.7 mmol/L (3.3-5.1); Sodium Level 137 mmol/L (133-145)
== END ==
LOC: OLS.SANC 04:00
PROVIDERS: Referring Provider Internal Medicine; Visit Provider Internal Medicine
DX: R53.83 Other fatigue (principal); I10 Essential (primary) hypertension
CPT/HCPCS: 36415; 80048; 85027

== ENCOUNTER → 2024-07-08 | Outpatient (REF) | payer MEDICARE, MEDICAID, SELFPAY ==
[2024-07-08 08:47] LABS: Hematocrit 45.3 % (40-54); Hemoglobin 15.6 g/dL (13.0-16.5); Mean Corp Hgb Conc 34.4 g/dL (32-36); Mean Platelet Vol. 10.6 fl (6.2-12.0); Platelet Count 139 K/mm3 (150-450); RBC Distribution Width CV 13.2 % (11.6-14.6); RBC Distribution Width SD 44.1 fl (35.1-43.9); Red Blood Count 4.87 M/mm3 (4.6-6.2); White Blood Count 7.9 K/mm3 (4.4-11.0)
[2024-07-08 09:04] LABS: Valproic Acid (Depakene) Level 43 ug/mL (50-100)
== END ==
LOC: OLS.SANC 05:00
PROVIDERS: Visit Provider Internal Medicine
DX: I10 Essential (primary) hypertension (principal); E78.5 Hyperlipidemia, unspecified; N40.0 Benign prostatic hyperplasia without lower urinary tract symptoms; E87.6 Hypokalemia; Z79.899 Other long term (current) drug therapy
CPT/HCPCS: 36415; 80164; 85027

== ENCOUNTER → 2024-07-22 | Outpatient (REF) | payer MEDICARE, MEDICAID, SELFPAY ==
[2024-07-22 09:04] LABS: Hematocrit 41.7 % (40-54); Hemoglobin 14.6 g/dL (13.0-16.5); Mean Corpuscular Hgb 32.4 pg (27.0-32.0); Mean Corpuscular Volume 92.7 fL (80-94); Mean Platelet Vol. 11.3 fl (6.2-12.0); Platelet Count 136 K/mm3 (150-450); White Blood Count 5.9 K/mm3 (4.4-11.0)
[2024-07-22 09:33] LABS: Anion Gap 14 (5-15); BUN 13 mg/dL (4-19); BUN/Creat Ratio 11.2 RATIO (10-20); Calcium,Total 9.1 mg/dL (7.6-11.0); Carbon Dioxide 21.4 mmol/L (21.0-32.0); Chloride 97 mmol/L (98-108); EST Glomerular Filtration Rate 69 (>60); Glucose 184 mg/dL (70-99); Potassium 4.4 mmol/L (3.3-5.1); Sodium Level 132 mmol/L (133-145)
== END ==
LOC: OLS.SANC 05:00
PROVIDERS: Visit Provider Internal Medicine
DX: E11.9 Type 2 diabetes mellitus without complications (principal); E78.5 Hyperlipidemia, unspecified; E03.9 Hypothyroidism, unspecified
CPT/HCPCS: 36415; 80048; 85027

== ENCOUNTER → 2024-07-29 | Outpatient (REF) | payer MEDICARE, MEDICAID, SELFPAY ==
[2024-07-29 11:10] LABS: Valproic Acid (Depakene) Level 57 ug/mL (50-100)
== END ==
LOC: OLS.SANC 04:00
PROVIDERS: Referring Provider Internal Medicine; Visit Provider Internal Medicine
DX: I10 Essential (primary) hypertension (principal); E78.5 Hyperlipidemia, unspecified; Z79.899 Other long term (current) drug therapy
CPT/HCPCS: 36415; 80164

== ENCOUNTER → 2024-09-20 05:00 | Outpatient (REF) | payer MEDICARE, MEDICAID, SELFPAY ==
--- OUTSIDE RECORDS SUMMARY | 2024-09-20 04:10 | XMS RPT_ITS | CCD ---
Author Organization [facility] Care Team Providers Care Maintenance Instructor Name Role Phone Unavailable Primary Care Provider UnavailGunnar Kenney Primary Care Provider Yogi Smith MD Primary Care Provider Unavailable Primary Care Provider UnavailDemetrius Macedo Primary Care Provider [phone] Demetrius Fenton Primary Care Provider Demetrius Fenton MD Primary Care Provider Demetrius Fenton Primary Care Provider KATSAROS, PETER Primary Care Unavailable JULISSA TAYLOR Attending Unavailable KATSAROS, PETER Primary Care Unavailable KATSAROS, PETER Primary Care Unavailable JULISSA TAYLOR Attending Unavailable KATSAROS, PETER Primary Care Unavailable JULISSA TAYLOR Attending Unavailable KATSAROS, PETER Primary Care Unavailable DANIELLE ARREOLA Attending Unavailable KATSAROS, PETER Primary Care Unavailable JULISSA TAYLOR Attending Unavailable KATSAROS, PETER Primary Care Unavailable JULISSA TAYLOR Attending Unavailable FRED HOLLOWAY Attending Unavailable KATSAROS, PETER Primary Care Unavailable KATSAROS, PETER Primary Care Unavailable JULISSA TAYLOR Attending Unavailable KATSAROS, PETER Primary Care Unavailable JULISSA TAYLOR Attending Unavailable KATSAROS, PETER Primary Care Unavailable JULISSA TAYLOR Attending Unavailable JULISSA TAYLOR Admitting Unavailable KATSAROS, PETER Primary Care Unavailable JULISSA TAYLOR Attending Unavailable KATSAROS, PETER Primary Care Unavailable JULISSA TAYLOR Attending Unavailable KATSAROS, PETER Primary Care Unavailable JULISSA TAYLOR Attending Unavailable KATSAROS, PETER Primary Care Unavailable JULISSA TAYLOR Attending Unavailable KATSAROS, PETER Primary Care Unavailable JULISSA TAYLOR Attending Unavailable KATSAROS, PETER Primary Care Unavailable JULISSA TAYLOR Attending Unavailable KATSAROS, PETER Primary Care Unavailable JULISSA TAYLOR Attending Unavailable KATSAROS, PETER Primary Care Unavailable CLAUDIA, JULISSA Attending Unavailable KATSAROS, PETER Primary Care Unavailable CLAUDIA, JULISSA Attending Unavailable KAYLEE BUNCH Attending Unavailable KATSAROS, PETER Primary Care Unavailable KATSAROS, PETER Primary Care Unavailable CLAUDIA, JULISSA Attending Unavailable KATSAROS, PETER Primary Care Unavailable CLAUDIA, JULISSA Attending Unavailable KATSAROS, PETER Primary Care Unavailable CLAUDIA, JULISSA Attending Unavailable KATSAROS, PETER Primary Care Unavailable CLAUDIA, JULISSA Attending Unavailable KATSAROS, PETER Primary Care Unavailable CLAUDIA, JULISSA Attending Unavailable KATSAROS, PETER Primary Care Unavailable CLAUDIA, JULISSA Attending Unavailable KATSAROS, PETER Primary Care Unavailable CLAUDIA, JULISSA Attending Unavailable KATSAROS, PETER Primary Care Unavailable CLAUDIA, JULISSA Attending Unavailable KATSAROS, PETER Primary Care Unavailable CLAUDIA, JULISSA Attending Unavailable KATSAROS, PETER Primary Care Unavailable CLAUDIA, JULISSA Attending Unavailable KATSAROS, PETER Primary Care Unavailable CLAUDIA, JULISSA Attending Unavailable KATSAROS, PETER Primary Care Unavailable CLAUDIA, JULISSA Attending Unavailable KATSAROS, PETER Primary Care Unavailable CLAUDIA, JULISSA Attending Unavailable KATSAROS, PETER Primary Care Unavailable ANAI BROWN Attending Unavailable KATSAROS, PETER Primary Care Unavailable CLAUDIA, JULISSA Attending Unavailable KATSAROS, PETER MARSHALLETAS Primary Care UnavailCHHAYA Rodriguez Attending Unavailable Demetrius Fenton MD Primary Care Provider Suzy WICK, Demetrius Attending Provider Unavailab le Katsaros OLS, Demetrius Referring Provider Unavailab le Katsaros OLS, Demetrius Attending Provider Unavailab le Katsaros OLS, Demetrius Referring Provider Unavailab le Katsaros OLS, Demetrius Attending Unavailable Katsaros OLS, Demetrius Referring Unavailable Katsaros OLS, Peter Attending Unavailable Katsaros OLS, Peter Attending Unavailable Katsaros OLS, Peter Referring Unavailable Katsaros OLS, Peter Attending Unavailable Katsaros OLS, Peter Attending Unavailable Katsaros OLS, Peter Referring Unavailable Katsaros OLS, Peter Attending Unavailable Katsaros OLS, Peter Attending Unavailable Katsaros OLS, Peter Attending Unavailable Gunning OLS, Gunnar Attending Unavailable Gunning OLS, Gunnar Referring Unavailable Katsaros OLS, Peter Attending Unavailable Katsaros OLS, Peter Attending Unavailable Allergies Allergy Classification Reported Allergen(s) Allergy Type Date of Onset Reaction(s) Facility hydrALAZINE (3 sources) hydrALAZINE Drug Allergy 05-25-19 Unknown [facility] Lincosamides (antibiotic) (3 sources) Clindamycin Drug Allergy 09-26-19 14 Rash [facility] Opioid Agonists (3 sources) traMADol Drug Allergy 05-25-19 Unknown [facility] Pollen (3 sources) Pollen Substance Allergy 10-26-19 23 [facility] Sulfamethoxazole / Trimethoprim (3 sources) Sulfamethoxazole / Trimethoprim Drug Allergy 05-25-19 Unknown [facility] (20 sources) Clindamycin; Translations: [CLINDAMYCIN] Drug Allergy 09-26-19 14 Rash [facility] Work Phone: (20 sources) Other Propensity to adverse reactions 03-09-20 [facility] Work Phone: (1 source) Cat Gut Sutures [Other] Propensity to adverse reactions 03-09-20 [facility] (20 sources) hydrALAZINE; Translations: [HYDRALAZINE] Drug Allergy 05-25-19 [facility] (20 sources) Sulfamethoxazole / Trimethoprim; Translations: [SULFAMETHOXAZOLE-TR IMETHOPRIM] Drug Allergy 05-25-19 Unknown [facility] (20 sources) Temazepam; Translations: [TEMAZEPAM] Propensity to adverse reactions 05-25-19 [facility] (20 sources) traMADol; Translations: [TRAMADOL] Drug Allergy 05-25-19 [facility] (20 sources) Pollen Propensity to adverse reactions 10-26-19 [facility] (3 sources) Temazepam Drug Allergy 05-25-19 Unknown [facility] (1 source) Pollen Drug Allergy 07-09-19 [facility] NEGATED: Highlighted row has been ruled out! (12 sources) Other Propensity to adverse reactions 03-09-20 [facility] Work Phone: Medications Current Medications Medication Drug Class(es) Dates Sig (Normalized) Sig (Original) acetaminophen 325 mg oral capsule (20 sources) take 2 capsules by mouth every six hours as needed acetaminophen 325 mg cap Take 650 mg by mouth every 6 hours as needed. Active take 2 tablets by [facility] every six hours as needed for pain acetaminophen (Tylenol) 325 MG tablet Take 650 mg by mouth every 6 hours as needed for mild pain (1-3) (elevated temp). Active take 2 capsules by m outh every four hours acetaminophen 325 mg cap Take 650 mg by mouth every 4 hours. 0 Active acetaminophen (T ylenol) 325 MG tablet Take by mouth. 0 Active End: 07-29-2022 take 2 tablets by mouth every four hours as needed for pain acetaminophen (Tylenol) 325 MG tablet Take 650 mg by mouth every 4 hours as needed for mild pain (1-3). 0 07/29/2022 Discontinued take 2 tablets by mo sdh three times daily acetaminophen (TYLENOL) 325 MG tablet Take 650 mg by mouth 3 times daily 0 Active Comment on above: Take 650 mg by mouth every 4 hours. acetaminophen 325 mg / HYDROcodone bitartrate 5 mg oral tablet (20 sources) Opioid Agonist Start: 07-09-2022 take 1 tablet by mouth every eight hours HYDROcodone-aceta minophen ([place]) 5-325 MG tablet Take 1 tablet by mouth in the morning and 1 tablet at noon and 1 tablet before bedtime. 07/09/2022 Active take 1 tablet by [facility] every eight hours as needed HYDROcodone-acetaminophen (NORCO) 5-325 mg per tablet Take 1 tablet by mouth every 8 hours as needed for pain. Active End: 06-23-2022 take 1 tablet by [facility] th every six hours as needed for pain HYDROcodone-acetaminophen (NORCO) 5-325 MG per tablet Take 1 tablet by mouth every 6 hours as needed for Pain. 0 Active Comment on above: Take 1 tablet by [facility] th every 8 hours as needed for pain. [id number] actuat albuterol 0.09 mg/actuat metered dose inhaler (20 sources) beta2-Adrenergic Agonist Start: 11-09-2022 Ventolin HFA 108 (90 Base) MCG/ACT inhaler 11/09/2022 Active Start: 10-06-2015 take 2.5 mg by inhal ation every four hours as needed albuterol (PROVENTIL) 2.5 mg /3 mL (0.083 %) nebulizer solution Use 3 mL via nebulizer every 4 hours as needed for Wheezing/Shortness of Breath. 0 10/06/2015 Active take 2 puff(s) by in halation every six hours as needed for wheezing albuterol HFA (PROVENTIL HFA) 90 mcg/actuation inhaler Inhale 2 Puffs as instructed every 6 hours as needed for wheezing/shortness of breath. Active albuterol (2.5 M G/3ML) 0.083% nebulizer solution Take by nebulization every 4 hours as needed for wheezing. Active albuterol (2.5 M G/3ML) 0.083% nebulizer solution Take by nebulization every 3-4 hours as needed for wheezing. 0 Active albuterol (PROVE NTIL) (2.5 MG/3ML) 0.083% nebulizer solution Take 2.5 mg by nebulization every 6 hours as needed for Wheezing 0 Active Comment on above: Use 3 mL via nebuliz er every 4 hours as needed for Wheezing/Shortness of Breath. amitriptyline hydrochloride 10 mg oral tablet (19 sources) Tricyclic Antidepressant amitrip tyline (ELAVIL) 10 mg tablet Take 10 mg by mouth. Active amLODIPine 5 mg oral tablet (15 sources) Dihydropyridine Calcium Channel Ash Start: 019 take 1 tablet by mouth once daily amLODIPine (NORVASC) 5 MG tablet Take 5 mg by mouth daily 0 06/21/2018 Active Start: 06-21-2018 take 2 tablets by mo uth once daily amLODIPine (NORVASC) 5 MG tablet Take 10 mg by mouth daily 0 06/21/2018 Active amoxicillin 500 mg oral tablet (13 sources) Penicillin-class Antibacterial take 1 tablet by mouth three times daily amoxicillin (Amoxil) 500 MG tablet Take 500 mg by mouth 3 times daily. 0 Active atorvastatin 40 mg oral tablet (20 sources) HMG-CoA Reductase Inhibitor Start: 015 End: 023 take 1 tablet by mouth once daily at bedtime atorvastatin (LIPITOR) 40 mg tablet Indications: Hyperlipidemia, unspecified hyperlipidemia Take 1 tablet by mouth daily at bedtime. 0 03/24/2015 Active Comment on above: Take 1 tablet by [facility] daily at bedtime. azithromycin 250 mg oral tablet (2 sources) Macrolide Antimicrobial End: 024 take 1 tablet by mouth once daily azithromycin (Zithromax) 250 MG tablet Take 250 mg by mouth daily. 10/13/2023 Active B-COMPLEX, FOLIC ACID, PO (18 sources) B-COMPLEX, FOLIC ACID, PO Take by mouth. Active benzonatate 200 mg oral capsule (20 sources) Non-narcotic Antitussive Start: 024 benzonatate (Tessalon) 200 MG capsule 09/11/2023 Active biotin 10 mg oral tablet (19 sources) take 10 mg by mouth once daily BIOTIN ORAL Take 10 mg by mouth once daily. Active cephalexin 250 mg oral capsule (20 sources) Cephalosporin Antibacterial Start: 024 cephalexin (Keflex) 250 MG capsule 06/23/2023 Active Start: 06-23-2023 End: 07-03-2023 cephalexin (Keflex) 500 MG c apsule Take 1 capsule (500 mg) by mouth in the morning and 1 capsule (500 mg) at noon and 1 capsule (500 mg) in the evening and 1 capsule (500 mg) before bedtime. Do all this for 10 days. 40 capsule 0 06/23/2023 07/03/2023 Active cholecalciferol 1.25 mg oral tablet (20 sources) Vitamin D End: 07-29-2022 take 1 capsule by mouth every week cholecalciferol, vitamin D3, 50,000 unit tab Take 1 capsule by mouth once each week. Active Comment on above: Take 1 capsule by [facility] once each week. ciprofloxacin 500 mg oral tablet (13 sources) Quinolone Antimicrobial Start: 03-08-2022 ciprofloxacin (Cipro) 500 MG tablet cloNIDine hydrochloride 0.1 mg oral tablet (20 sources) Central alpha-2 Adrenergic Agonist Start: 06-24-2022 cloNIDine HCl (CATAPRES) 0.1 mg tablet Take 0.1 mg by mouth. 06/24/2022 Active Start: 05-27-2022 cloNIDine (Cat apres-TTS) 0.3 MG/24HR End: 06-23-2022 take 1 tablet by [facility] twice daily cloNIDine (CATAPRES) 0.1 MG tablet Take 0.1 mg by mouth 2 times daily 0 Active Comment on above: Take 0.1 mg by mouth . docosahexaenoic acid 120 mg / eicosapentaenoic acid 180 mg oral capsule (20 sources) take 1 capsule by mouth twice daily omega-3 1000 MG capsule capsule Take 1,000 mg by mouth 2 times daily. Active omega-3 1000 MG capsule capsule Take by mouth every 12 hours. 0 Active docosahexaenoic acid 1000 mg / omega-3 acid ethyl esters (mcc) 300 mg delayed release oral capsule (7 sources) take 2000 mg by mouth twice daily [place]-3 Fatty Acids (FISH OIL) 1000 MG CPDR Take 2,000 mg by mouth 2 times daily 0 Active docusate sodium 100 mg oral capsule (20 sources) Start: 5 End: 3 take 1 capsule by mouth once daily docusate sodium (COLACE) 100 mg capsule Indications: Constipation, unspecified constipation type Take 1 capsule by mouth once daily. 0 03/24/2015 Active Comment on above: Take 1 capsule by [facility] once daily. docusate sodium 50 mg / sennosides, mcc 8.6 mg oral tablet (20 sources) Start: 3 End: 4 take 2 tablets by mouth once senna-docusate (SENNA-S) 8.6-50 mg per tablet Take 2 tablets by mouth. 0 06/24/2022 06/24/2023 Active Start: 06-24-2022 End: 06-24-2023 Start: 06-09-2022 End: 06-24-2023 senna-docusate sodium (Senok ot-S) 8.6-50 MG tablet Take 2 tablets by mouth daily. Do not start before June 24, 2022. 60 tablet 11 06/24/2022 06/24/2023 Active Comment on above: Take 2 tablets by [facility]. doxycycline hyclate 100 mg oral capsule (12 sources) Tetracycline-class Drug Start: 11-15-2023 End: 11-25-2023 doxycycline (Vibramycin) 100 MG capsule Take 1 capsule (100 mg) by mouth 2 times daily for 10 days. Take with at least 8 ounces (large glass) of water, do not lie down for 30 minutes after 20 capsule 11/15/2023 11/25/2023 Active Start: 10-18-2023 End: 10-28-2023 doxycycline (Vibramycin) 100 MG capsule Take 1 capsule (100 mg) by mouth 2 times daily for 10 days. Take with at least 8 ounces (large glass) of water, do not lie down for 30 minutes after 20 capsule 10/18/2023 10/28/2023 Active 1 ml erenumab-aooe 70 mg/ml auto-injector (3 sources) Start: 06-16-2023 End: 12-13-2023 inject 1 mL by subcutaneous injection every month erenumab-aooe (AIMOVIG AUTOINJECTOR) 70 mg/mL auto-injector Indications: Chronic daily headache , Intractable chronic migraine without aura and with status migrainosus Inject 1 mL subcutaneously once every month. Do not shake. 1 mL 5 06/16/2023 12/13/2023 Active End: 07-08-2024 inject 140 mg by subcutaneous injection every month erenumab-aooe (AIMOVIG AUTOINJECTOR) 140 mg/mL auto-injector Inject 140 mg subcutaneously once every month. Do not shake. 07/08/2024 Discontinued Comment on above: Inject 1 mL subcutan eously once every month. Do not shake. Erenumab-aooe (AIMOVIG, 140 MG DOSE, SC) (20 sources) Erenumab-aooe (A IMOVIG, 140 MG DOSE, SC) Inject under the skin. Active Erenumab-aooe (A IMOVIG, 140 MG DOSE, SC) Inject under the skin. 0 Active ergocalciferol 1.25 mg oral capsule (13 sources) Provitamin D2 Compound Start: 06-25-2022 ergocalciferol (Vitamin D2) 1.25 MG (53801 UT) capsule 2 ml famotidine 10 mg/ml injection (20 sources) Histamine-2 Receptor Antagonist Start: 06-09-2022 take 1 dose intravenously once 20 mg, IntraVENous, Administer over 2 Minutes, Once, On [facility] 06/09/22 at 0415, For 1 dose IV Push over minimum of 2 minutes - Dilute with 10 mL NS famotidine (PEPC ID) 40 mg tablet Take 20 mg by mouth once daily. Active End: 07-29-2022 take 1 tablet by mouth once daily famotidine (Pepcid) 20 MG tablet Take 20 mg by mouth daily. Active End: 06-23-2022 take 1 tablet by mouth once daily famotidine (PEPCID) 40 mg tablet Take 40 mg by mouth once daily. 0 Active Comment on above: Take 40 mg by mouth once daily. fluticasone propionate 0.05 mg/actuat metered dose nasal spray (20 sources) Corticosteroid Start: 05-14-2023 fluticasone (FLONASE) 50 mcg/actuation nasal spray 05/14/2023 Active gabapentin 400 mg oral capsule (20 sources) Anti-epileptic Agent Start: 06-11-2023 gabapentin (NEURONTIN) 400 mg capsule 06/11/2023 Active Start: 06-24-2022 End: 06-23-2022 take 1 capsule by mouth twice daily gabapentin (Neurontin) 300 MG capsule Take 300 mg by mouth 2 times daily. 06/24/2022 Active Start: 06-24-2022 End: 06-23-2022 take 1 capsule by mouth twice daily gabapentin (Neurontin) 300 MG capsule Take 300 mg by mouth 2 times daily. 06/24/2022 Active Start: 06-24-2022 gabapentin (Ne urontin) 100 MG capsule End: 06-23-2022 take 1 capsule by mo uth three times daily gabapentin (NEURONTIN) 100 MG capsule Take 100 mg by mouth 3 times daily. 0 Active gentamicin 0.001 mg/mg topic al ointment (13 sources) Start: 04-11-2022 gentamicin (Ga ramycin) 0.1 % ointment Glucosamine (20 sources) glucosamine sulf ate (GLUCOSAMINE ORAL) Take by mouth. Active Glucosamine 500 MG capsule Take by mouth 2 times daily. Active glucosamine sulf ate (GLUCOSAMINE ORAL) Take by mouth. 0 Active Comment on above: Take by mouth. 12 hr guaiFENesin 600 mg ext ended release oral tablet (20 sources) Start: 06-16-2022 End: 06-23-2023 guaiFENesin (Muc inex) 600 MG 12 hr tablet Take 1,200 mg by mouth 2 times daily. Do not crush, chew, or split. Active Comment on above: Take 600 mg by mouth . ibuprofen 800 mg oral tablet (20 sources) Nonsteroidal Anti-inflammatory Drug ibuprofen 800 MG tablet Take 800 mg by mouth. 0 Active ketoconazole 20 mg/ml topical cream (20 sources) Azole Antifungal Start: 06-24-2022 End: 06-23-2022 ketoconazole (NIZOral) 2 % cream Apply 1 Application topically daily. Apply to brow and face 06/24/2022 Active Start: 06-24-2022 End: 06-23-2022 ketoconazole (NIZOral) 2 % c ream Apply 1 Application topically daily. Apply to brow and face 06/24/2022 Active ammonium lactate 120 mg/ml topical lotion (20 sources) Start: 06-24-2022 ammonium lacta te (LAC-HYDRIN) 12 % lotion Apply to affected area. 06/24/2022 Active Comment on above: Apply to affected ar ea. lidocaine hydrochloride 0.02 mg/mg topical gel (20 sources) Antiarrhythmic, Amide Local Anesthetic Start: 08-23-2023 lidocaine (Uro-Jet) 2 % gel Start: 06-10-2022 End: 06-10-2022 Infiltration, As needed, Sta rting on Mon06/10/22 at 1421, Intraprocedure Start: 06-10-2022 End: 06-23-2022 Start: 06-26-2020 End: 06-26-2020 lidocaine PF 1 % injection 1 0 mL lisinopril 20 mg oral tablet (20 sources) Angiotensin Converting Enzyme Inhibitor Start: 07-19-2022 lisinopril (ZESTRIL) 20 mg tablet 05/14/2023 Active Start: 06-03-2022 lisinopril 40 MG tablet End: 06-23-2022 take 2 tablets by mo [facility] once daily lisinopril (PRINIVIL;ZESTRIL) 20 MG tablet Take 40 mg by mouth daily 0 Active loratadine 10 mg oral tablet (20 sources) take 1 tablet by [facility] once daily loratadine (Claritin) 10 MG tablet Take 10 mg by mouth daily. 0 Active magnesium hydroxide 80 mg/ml oral suspension (20 sources) take 30 mL by mouth every twenty-four hours as needed magnesium hydroxide (MOM) 400 mg/5 mL suspension Take 30 mL by mouth at bedtime as needed. Active take 30 mL by mouth once daily as needed for constipation magnesium hydroxide (Milk of Magnesia) 4 00 MG/5ML suspension Take 30 mL by mouth Nightly as needed for constipation. Active Comment on above: Take 30 mL by mouth at bedtime as needed. metoprolol tartrate 25 mg oral tablet (20 sources) beta-Adrenergic Ash Start: 06-11-2023 take 1 tablet by mouth twice daily metoprolol tartrate, short acting, (LOPRESSOR) 25 mg tablet Take 25 mg by mouth two times a day. 06/11/2023 Active Start: 06-23-2022 End: 06-23-2022 take 25 mg by mouth twice daily 25 mg, Oral, 2 times d aily, First dose on Jessica 06/23/22 at 1200 Start: 06-09-2022 End: 06-09-2022 5 mg, IntraVENous, Every 5 m in PRN, patient has chest pain, ST segment elevation on EKG, heart rate 150 or greater, SBP 240 mmHg or greater, or DBP 120 mmHg or greater, Starting on Jessica 06/09/22 at 1442, For 3 doses, CV Procedural Medications FOR USE IN CARDIAC STRESS LAB ONLY. Administer slow IV push and may repeat dose every 5 minutes for a maximal total dose of 15 mg. miconazole nitrate 0.02 mg/mg topical powder (20 sources) Azole Antifungal Start: 06-08-2022 End: 06-23-2022 miconazole 2 % powder Apply to affected area two times a day. 06/23/2022 Active Comment on above: Apply to affected ar ea two times a day. minocycline 100 mg oral capsule (13 sources) Tetracycline-clas s Drug Start: 05-24-2022 minocycline 100 MG capsule [place]-3 Fatty Acids (FISH OIL) 1000 MG CPDR (8 sources) take 2000 mg by mouth twice daily [place]-3 Fatty Acids (FISH OIL) 1000 MG CPDR Take 2,000 mg by mouth 2 times daily 0 Active omega-3 fatty acids 1,000 mg cap (4 sources) take 1 capsule by mouth twice daily omega-3 fatty acids 1,000 mg cap Take 2 g by mouth twice daily. Active take 1 capsule by mouth twice da cl omega-3 fatty acids 1,000 mg cap Take 2 g by mouth twice daily. 0 Active Comment on above: Take 2 g by mouth tw ice daily. polyethylene glycol 3350 01554 mg powder for oral solution (7 sources) Osmotic Laxative Start: 06-23-2023 End: 06-26-2023 take 17 g by mouth once daily polyethylene glycol, PEG, 3350 (Miralax) 17 g packet Take 17 g by mouth daily for 3 days. 3 packet 0 06/23/2023 06/26/2023 Active Start: 06-08-2022 End: 06-26-2022 take 17 g by mouth every twenty-four hours as needed Polyethylene Glycols (20 sources) Polyethylene Gly col 3350 (MIRALAX PO) Take by mouth. Active Polyethylene Gly col 3350 (MIRALAX PO) Take by mouth. 0 Active microencapsulated potassium chloride 20 meq extended release oral tablet (20 sources) Start: 06-25-2022 potassium chlo ride CR (Klor-Con M20) 20 MEQ ER tablet Take 20 mEq by mouth daily. 06/25/2022 Active Start: 03-24-2015 take 1 tablet by [facility] twice daily potassium chloride (K-TAB) 10 mEq tablet Indications: Hypokalemia Take 1 tablet by mouth twice daily. 0 03/24/2015 Active take 20 mEq by mouth twice daily potassium chloride (Klor-Con) 20 MEQ packet Take 20 mEq by mouth 2 times daily. Active End: 06-23-2022 potassium chlori de (KLOR-CON M) 20 MEQ TBCR extended release tablet Take 10 mEq by mouth 2 times daily 0 Active potassium chlori de (KLOR-CON M) 20 MEQ TBCR extended release tablet Take 40 mEq by mouth 4 times daily 0 Active Comment on above: Take 1 tablet by [facility] twice daily. sodium chloride flush 0.9 % injection 3 mL (1 source) Start: 04-05-2019 sodium chloride flush 0.9 % injection 3 mL spironolactone 100 mg oral tablet (20 sources) Aldosterone Antagonist Start: 06-30-2022 spironolactone (ALDACTONE) 100 mg tablet 06/13/2023 Active End: 06-23-2022 suvorexant 10 mg oral tablet (13 sources) Orexin Receptor Antagonist Start: 05-30-2022 Belsomra 10 MG tablet tamsulosin hydrochloride 0.4 mg oral capsule (20 sources) alpha-Adrenergic Ash Start: 01-28-2020 take 1 capsule by mouth once daily tamsulosin ER (FLOMAX) 0.4 mg Take 1 capsule by mouth once daily. 01/28/2020 Active Comment on above: Take 1 capsule by mo [facility] once daily. topiramate 25 mg oral capsule (13 sources) take 1 capsule by mouth once daily topiramate (TOPAMAX SPRINKLE) 25 MG capsule Take 25 mg by mouth daily 0 Active triamcinolone acetonide 1 mg/ml topical cream (20 sources) Corticosteroid Start: 06-24-2022 triamcinolone acetonide (KENALOG) 0.1 % cream Apply to affected area. 06/24/2022 Active Comment on above: Apply to affected ar ea. divalproex sodium 125 mg delayed release oral capsule (20 sources) Mood Stabilizer, Anti-epileptic Agent Start: 06-23-2022 End: 06-23-2023 take 2 capsules by mouth in the morning divalproex sprinkle (Depakote Sprinkle) [address] capsule Take 2 capsules (250 mg) by mouth in the morning and 2 capsules (250 mg) before bedtime. 120 capsule 11 06/23/2022 Active Start: 06-23-2022 End: 06-23-2023 Start: 06-12-2022 End: 06-23-2022 take 1 dose by mouth twice daily 250 mg, Oral, Every 12 hours scheduled (2 times per day), First dose on 06/12/22 at 0900 Do not crush or chew. Start: 05-22-2022 divalproex (De pakote) 500 MG EC tablet End: 06-23-2022 take 1 tablet by mouth twice daily divalproex ER (DEPAKOTE ER) 500 mg 24 hr tablet Take 500 mg by mouth two times a day. Active take 1 tablet by [facility] once daily divalproex (DEPAKOTE) [address] tablet Take 500 mg by mouth nightly 0 Active take 1 tablet by [facility] th once daily at bedtime divalproex ER (DEPAKOTE ER) 500 mg 24 hr tablet Take 500 mg by mouth daily at bedtime. 0 Active End: 02-19-2020 take 2 tablets by mouth once daily as needed divalproex (DEPAKOTE) [address] tablet Take 500 mg by mouth nightly as needed 0 02/19/2020 Discontinued take 1 tablet by [place] th once daily in the morning divalproex (DEPAKOTE) [address] tablet Take 250 mg by mouth every morning 0 Active Comment on above: Take 500 mg by mouth daily at bedtime. Take 500 mg by mouth two times a day. 24 hr venlafaxine 75 mg extended release oral capsule (20 sources) Serotonin and Norepinephrine Reuptake Inhibitor Start: 10-12-2022 venlafaxine XR (Effexor XR) 75 MG 24 hr capsule 10/12/2022 Active Start: 07-23-2022 End: 07-29-2022 venlafaxine XR (Effexor XR) 75 MG 24 hr capsule Start: 06-12-2022 End: 11-16-2022 take 75 mg by mouth twice daily 75 mg, Oral, 2 times d aily, First dose on 06/12/22 at 0900 take 2 tablets by mo uth twice daily venlafaxine (EFFEXOR) 75 mg tablet Take 150 mg by mouth two times a day. Active End: 02-19-2020 take 1 capsule by mouth once daily venlafaxine ER (EFFEXOR XR) 150 mg 24 hr capsule Take 150 mg by mouth once daily. 0 Active Comment on above: Take 150 mg by mouth once daily. Take 150 mg by mouth two times a day. Vitamin B Complex (1 source) take 10 mg by mouth once daily vitamin B complex (B-COMPLEX ORAL) Take 10 mg by mouth once daily. W/ biotin and folic acid Active Completed/Discontinued Medications Medication Drug Class(es) Dates Sig (Normalized) Sig (Original) acetaminophen 325 mg / oxyCODONE hydrochloride 5 mg oral tablet (4 sources) Opioid Agonist Start: 06-12-2022 End: 06-16-2022 take 2 tablets by mouth every six hours as needed for pain 2 tablet, Oral, Every 6 hours PRN, moderate pain (4-6), severe pain (7-10), Starting on 06/12/22 at 0924 Maximum dose of acetaminophen is 4000 mg from all sources in 24 hours. Start: 06-11-2022 End: 06-12-2022 take 1 tablet by mouth every six hours as needed for pain 1 tablet, Oral, Every 6 hours PRN, moderate pain (4-6), severe pain (7-10), Starting on 06/11/22 at 0823 Maximum dose of acetaminophen is 4000 mg from all sources in 24 hours. albuterol 0.833 mg/ml / ipratropium bromide 0.167 mg/ml inhalation solution (2 sources) Anticholinergic, beta2-Adrenergic Agonist Start: 06-15-2022 End: 06-23-2022 3 mL, Nebulization, 4 times daily PRN, wheezing, Starting on 06/15/22 at 0441 amoxicillin 875 mg / clavulanate 125 mg oral tablet (2 sources) Penicillin-class Antibacterial End: 02-19-2020 take 1 tablet by mouth twice daily amoxicillin-clavul anate (AUGMENTIN) 875-125 MG per tablet Indications: for 14 days starting 03/22/19 Take 1 tablet by mouth 2 times daily Indications: for 14 days starting 03/22/19 0 02/19/2020 Discontinued ARIPiprazole 5 mg oral tablet (20 sources) Atypical Antipsychotic Start: 06-12-2022 End: 06-23-2022 take 5 mg by mouth once daily 5 mg, Oral, Daily, First dose on Mon06/12/22 at 0900 take 1 tablet by mouth once bee y ARIPiprazole (ABILIFY) 10 mg tablet Take 10 mg by mouth once daily. Active Comment on above: Take 10 mg by mouth once daily. aspirin 81 mg chewable tablet (20 sources) Platelet Aggregation Inhibitor, Nonsteroidal Anti-inflammatory Drug Start: 06-08-2022 End: 06-23-2022 take 81 mg by mouth once daily 81 mg, Oral, Daily, First dose on Mon06/08/22 at 0900 End: 06-16-2023 take 1 tablet by mouth once daily aspirin 81 MG EC tab let Take 81 mg by mouth daily. Active Comment on above: Take 81 mg by mouth once daily. bacitracin 0.5 unt/mg topical ointment (1 source) Start: 1 End: 1 bacitracin zinc ointment bisacodyl 10 mg rectal suppository (20 sources) Stimulant Laxative Start: 3 End: 3 take 10 mg rectal route every twenty-four hours as needed for constipation 10 mg, Rectal, Daily PRN, constipation, Starting on Mon06/11/22 at 0900 Bisacodyl (DULCO LAX) 5 mg tab Take 5 mg by mouth as needed for constipation. Active Comment on above: [address] mg [address]AL [address] e at bedtime as needed. calcium chloride 0.0014 meq/ml / potassium chloride 0.004 meq/ml / sodium chloride 0.103 meq/ml / sodium lactate 0.028 meq/ml injectable solution (2 sources) Start : 06-10 End: 06-12 take 125 mL intravenously every hour 125 mL/hr, IntraVENous, Continuous, Starting on Mon06/10/22 at 1145 cholecalciferol 9.52 unt/ml / glucose 357 mg/ml oral gel (2 sources) Vitamin D Start : 06-07 End: 06-23 15 g, Oral, As needed, low blood sugar, Starting on Mon06/07/22 at 2354 If blood glucose less than 50 mg/dL and patient ALERT and NOT NPO, give 2 tubes glucose gel. If blood glucose less than 70 mg/dL and patient ALERT and NOT NPO, give 1 tube glucose gel. Repeat blood glucose in 15 minutes. If blood glucose is less than 70 mg/dL, repeat treatment and recheck blood glucose in 15 minutes x2 and notify provider. chondroitin sulfates 400 mg / glucosamine sulfate 500 mg oral tablet (2 sources) End: 06-23 clobetasol propionate 0.5 mg/ml topical cream (2 sources) Corticosteroid End: 06-23 dextromethorphan hydrobromide 3 mg/ml oral solution (2 sources) Uncompetitive K-ngtuyd-N-aspartate Receptor Antagonist, Sigma-1 Agonist End: 06-23 1 ml diphenhydrAMINE hydrochloride 50 mg/ml cartridge (1 source) Histamine-1 Receptor Antagonist Start : 02-18 End: 02-18 diphenhydrAMINE (BENADRYL) injection 12.5 mg 250 ml DOBUTamine 1 mg/ml injection (2 sources) beta-Adrenergic Agonist Start : 06-09 End: 06-16 10 mcg/kg/min 115 kg (69 mL/hr), IntraVENous, Continuous, Starting on Mon06/09/22 at 1330, CV Procedural Medications To be administered in Stress Lab only. Inc rease by 10 mcg/kg/min every 3 minutes up to a max dose of 40 mcg/kg/min.
Dose Range: 10 to 40 mcg/kg/min Max dose: 40 mcg/kg/min Cont act physician if max dose does not achieve desired response. W hen approaching therapeutic goal or weaning off, smaller titration increments of 1 mcg/kg/min, no faster than every 5 minutes may be used to maintain goal. Inotrope Criteria (select all that apply): Other Explanatory comment: Dobutamine stress echo Inotrope Target (select all that apply): Other Explanatory comment: Dobutamine stress echo Drug or medicament (substance) (2 sources) Start : 06-08 End: 06-23 Topical, As needed, dry skin, Starting on Mon06/08/22 at 1452 Et mix to buttock, perineal area and post thighs, twice daily . DULoxetine 60 mg delayed release oral capsule (2 sources) Serotonin and Norepinephrine Reuptake Inhibitor End: 02-18 take 1 capsule by mouth once daily DULoxetine (CYMBALTA) 60 MG extended release capsule Take 60 mg by mouth daily 0 02/19/2020 Discontinued enalapril maleate 10 mg oral tablet (2 sources) Angiotensin Converting Enzyme Inhibitor End: 02-18 take 1 tablet by mouth once daily enalapril (VASOTEC) 10 MG tablet Take 10 mg by mouth daily 0 02/19/2020 Discontinued 0.4 ml enoxaparin sodium 100 mg/ml prefilled syringe (2 sources) Low Molecular Weight Heparin Start : 06-08 End: 06-23 inject 40 mg by subcutaneous injection every twenty-four hours 40 mg, SubCUTAneous, Every 24 hours scheduled (Daily), First dose on Mon06/08/22 at 0900 Indication of Use: Prophylaxis-DVT/PE Indications: Prophylaxis of Venous Thromboembolism 2 ml fentaNYL 0.05 mg/ml injection (2 sources) Opioid Agonist Start : 06-10 End: 06-10 IntraVENous, As needed, Starting on Mon06/10/22 at 1420, Intraprocedure 4 ml furosemide 10 mg/ml injection (20 sources) Loop Diuretic Start : 06-15 End: 06-19 40 mg, IntraVENous, 2 times daily, First dose (after last reorder) on Jessica 06/16/22 at 2100 Start: 05-27-2022 furosemide (La six) 40 MG tablet Start: 03-24-2015 End: 06-16-2023 take 1 tablet by mouth once daily furosemide (LASIX) 20 mg tablet Indications: Essential hypertension, benign Take 1 tablet by mouth once daily. 0 03/24/2015 06/16/2023 Discontinued Comment on above: Take 1 tablet by [place] once daily. glucagon (rdna) 1 mg injection (2 sources) Antihypoglycemic Agent Start: End: take 1 mL intravenously every hour 1 mg, IntraMUSCular, PRN, low blood sugar, Blood glucose less than 70 mg/dL and patient NOT ALERT or NPO and does not have IV access., Starting on Mon06/07/22 at 2354 After administration, attempt intravenous access and start D5W at 100 mL/hr. Repeat blood glucose in 15 minutes x2 and notify provider. 150 ml glucose 50 mg/ml injection (4 sources) Start: End: 12.5 g, IntraVENous, PRN, low blood sugar, Starting on Mon06/07/22 at 2354 Blood glucose less than 70 mg/dL and patient NOT ALERT or NPO., If patient does not respond within 5 minutes, repeat dose x1. Start D5W at 100 mL/hour until ordering provider can be reached. Repeat blood glucose in 15 minutes. If blood glucose is less than 70 mg/dL, repeat treatment and recheck blood glucose in 15 minutes x2. If using Glucostabilizer, dose as instructed per system. Start: 06-07-2022 End: 06-23-2022 100 mL/hr, IntraVENous, PRN, Low Blood Sugar, Starting on Mon06/07/22 at 2354 Blood glucose less than 70 mg/dL and patient NOT ALERT or NPO and does not have IV access., After administration, attempt intravenous access and start D5W at 100 mL/hr. Repeat blood glucose in 15 minutes x2 and notify provider. hydroCHLOROthiazide 25 mg oral tablet (3 sources) Thiazide Diuretic End: 06-26-2020 take 1 tablet by mouth once daily hydrochlorothiazide (HYDRODIURIL) 25 MG tablet Take 25 mg by mouth daily 0 06/26/2020 Discontinued (LIST CLEANUP) 1 ml HYDROmorphone hydrochloride 1 mg/ml cartridge (4 sources) Opioid Agonist Start: 06-12-2022 End: 06-16-2022 take 1 mg intravenously every four hours as needed for pain and pain 1 mg, IntraVENous, Every 4 hours PRN, moderate pain (4-6), severe pain (7-10), Starting on Mon06/12/22 at 0921 If oral and IV narcotics ordered, use oral first and only use IV if oral is ineffective or cannot take oral. Do Not give oral and IV within 1 hour of each other unless specifically ordered. Start: 06-11-2022 End: 06-12-2022 take 0.5 mg intravenously every four hours as needed for pain and pain 0.5 mg, IntraVENous, Every 4 hours PRN, moderate pain (4-6), severe pain (7-10), Starting on 06/11/22 at 1608 If oral and IV narcotics ordered, use oral first and only use IV if oral is ineffective or cannot take oral. Do Not give oral and IV within 1 hour of each other unless specifically ordered. iopamidol (Isovue-370) 76 % injection 100 mL (2 sources) Start: 06-23-2023 End: 06-23-2023 iopamidol (Isovue-370) 76 % injection 100 mL iopamidol (Isovue-370) 76 % injection 75 mL (1 source) Start: 10-26-2022 End: 10-26-2022 iopamidol (Isovue-370) 76 % injection 75 mL 1 ml ketorolac tromethamine 30 mg/ml cartridge (5 sources) Nonsteroidal Anti-inflammatory Drug, Cyclooxygenase Inhibitor Start: 02-18-2024 End: 02-18-2024 15 mg, IntraVENous, Once, On 02/18/24 at 0130, For 1 dose Start: 06-22-2023 End: 06-22-2023 ketorolac (Toradol) injectio n 15 mg Start: 02-19-2020 End: 02-19-2020 ketorolac (TORADOL) injectio n 15 mg LORazepam 0.5 mg oral tablet (2 sources) Benzodiazepine Start: 10-06-2015 End: 06-16-2023 take 1 tablet by mouth every eight hours as needed LORazepam (ATIVAN) 0.5 mg tab Take 1 tablet by mouth three times daily as needed (ANXIETY). 10 tablet 0 10/06/2015 06/16/2023 Discontinued Comment on above: Take 1 tablet by mouth three times daily as needed (ANXIETY). melatonin 5 mg oral tablet (20 sources) Start: 06-12-2022 End: 06-23-2022 take 10 mg by mouth once daily 10 mg, Oral, Nightly, First dose on 06/12/22 at 2100 Start: 06-08-2022 End: 06-23-2022 take 6 mg by mouth once daily as needed for sleep 6 mg, Oral, Nightly PRN, sleep, Starting on Mon06/08/22 at 0155 take 5 mg by mouth o nce daily at bedtime melatonin 3 mg tablet Take 5 mg by mouth daily at bedtime. Active take 2 tablets by mo [facility] once daily melatonin 5 MG tablet Take 10 mg by mouth Nightly. Active take 1 tablet by [place] once daily at bedtime melatonin 3 mg tablet Take 3 mg by mouth daily at bedtime. 0 Active take 3 mg by mouth once daily me latonin 5 MG tablet Take 3 mg by mouth Nightly. 0 Active Comment on above: Take 3 mg by mouth d aily at bedtime. memantine hydrochloride 10 mg oral tablet (20 sources) Y-fuhvob-S-aspartate Receptor Antagonist Start: 2014 End: 2024 take 1 tablet by mouth twice daily memantine (NAMENDA) 10 mg tablet Indications: TBI (traumatic brain injury), with loss of consciousness of unspecified duration, sequela Take 1 tablet by mouth twice daily. 180 tablet 1 03/24/2015 07/08/2024 Discontinued Comment on above: Take 1 tablet by [place] twice daily. 2 ml metoclopramide 5 mg/ml prefilled syringe (1 source) Dopamine-2 Receptor Antagonist Start: 2019 End: 2019 metoclopramide (REGLAN) injection 10 mg 2 ml midazolam 1 mg/ml injection (2 sources) Benzodiazepine Start: 2022 End: 2022 IntraVENous, As needed, Starting on Mon06/10/22 at 1420, Intraprocedure 1 ml morphine sulfate 4 mg/ml injection (6 sources) Opioid Agonist Start: 2022 End: 2022 take 4 mg intravenously every four hours as needed for pain and pain 4 mg, IntraVENous, Every 4 hours PRN, moderate pain (4-6), severe pain (7-10), Starting on Mon06/10/22 at 1205 If oral and IV narcotics ordered, use oral first and only use IV if oral is ineffective or cannot take oral. Do Not give oral and IV within 1 hour of each other unless specifically ordered. Start: 06-10-2022 End: 06-10-2022 Starting on Mon06/10/22 at 08 15, For 1 dose Lawson Jones: cabinet override Start: 06-10-2022 End: 06-10-2022 take 2 mg intravenously every four hours as needed for pain and pain 2 mg, IntraVENous, Every 4 hours PRN, moderate pain (4-6), severe pain (7-10), Starting on Mon06/10/22 at 0805 If oral and IV narcotics ordered, use oral first and only use IV if oral is ineffective or cannot take oral. Do Not give oral and IV within 1 hour of each other unless specifically ordered. 2 ml naloxone hydrochloride 1 mg/ml prefilled syringe (6 sources) Opioid Antagonist Start: 06-16-2022 End: 06-23-2022 0.4 mg, IntraVENous, PRN, opioid reversal, Starting on Mon06/16/22 at 1740 Start: 06-16-2022 End: 06-16-2022 Starting on Mon06/16/22 at 10 07, For 1 dose Lucero Worrell: cabinet override Start: 06-16-2022 End: 06-16-2022 1 mg, IntraVENous, Once, On Mon06/16/22 at 1015, For 1 dose nitroglycerin 0.4 mg sublingual tablet (6 sources) Nitrate Vasodilator Start: 06-08-2022 End: 06-23-2022 0.4 mg, SubLINGual, Every 5 min PRN, chest pain, Starting on Mon06/08/22 at 0155 Give every 5 minutes as needed for chest pain to a maximum of 3 doses. Notify MD and obtain EKG if no relief after 3 doses or chest pain recurs. HOLD and notify MD if SBP less than 90 mmHg. Do not give if nitroglycerin infusion running concurrently. Do not give within 24 hours of sildenafil citrate (Viagra) or vardenafil (Levitra) use, or within 48 hours of tadalafil (Cialis) use. Start: 06-07-2022 End: 06-08-2022 0.5 inch, TransDERmal, Admin ister over 6 Hours, Once, On Mon06/07/22 at 2340, For 1 dose Start: 06-07-2022 End: 06-07-2022 0.4 mg, SubLINGual, Once, On 06/07/22 at 2320, For 1 dose May administer up to 3 doses per episode. omeprazole 20 mg delayed release oral tablet (20 sources) Proton Pump Inhibitor End: 06-16-2023 take 20 mg by mouth once daily Omeprazole 20 mg TbEC Take 20 mg by mouth once daily. 0 06/16/2023 Discontinued omeprazole (PriL OSEC) [address] capsule Take by mouth. 0 Active Comment on above: Take 20 mg by mouth once daily. 2 ml ondansetron 2 mg/ml injection (20 sources) Serotonin-3 Receptor Antagonist Start: 02-18-2024 End: 02-18-2024 4 mg, IntraVENous, Once, On 02/18/24 at 0130, For 1 dose ondansetron (ZOF RAN) 4 mg tablet Take by mouth every 6 hours as needed for nausea/vomiting. Active petrolatum 0.41 mg/mg topical ointment (2 sources) End: 06-23-2022 QUEtiapine 100 mg oral tablet (20 sources) Atypical Antipsychotic Start: 03-24-2015 End: 06-16-2023 take 2 tablets by mouth once daily at bedtime QUEtiapine (SEROQUEL) 100 mg tablet Indications: Major depressive disorder, recurrent, severe without psychotic features (HCC) Take 2 tablets by mouth daily at bedtime. 0 03/24/2015 06/16/2023 Discontinued QUEtiapine (SERO quel) 50 MG tablet Take 25 mg by mouth. 0 Active take 0.5 tablet by m outh twice daily QUEtiapine (SEROQUEL) 50 MG tablet Take 25 mg by mouth 2 times daily 04/11 tab 0 Active End: 02-19-2020 QUEtiapine (SEROQUEL) 25 MG tablet Take 37.5 mg by mouth nightly 0 02/19/2020 Discontinued take 1 tablet by [place]ia th once daily QUEtiapine (SEROQUEL) 50 MG tablet Take 50 mg by mouth nightly 0 Active Comment on above: Take 2 tablets by mo uth daily at bedtime. 10 ml sodium bicarbonate 84 mg/ml injection (2 sources) Start: 06-08-2022 End: 06-08-2022 50 mEq, IntraVENous, Once, On Mon06/08/22 at 0000, For 1 dose sodium chloride 1000 mg oral tablet (8 sources) Start: 06-18-2022 End: 06-21-2022 3 g, Oral, 3 times daily with meals, First dose (after last modification) on Mon06/19/22 at 1200 Start: 06-08-2022 End: 06-09-2022 take 75 mL intravenously every hour 75 mL/hr, IntraVENous, Continuous, Starting on Mon06/08/22 at 0200 Start: 06-08-2022 End: 06-08-2022 1,000 mL, IntraVENous, at 1, 000 mL/hr, Administer over 1 Hours, Once, On Mon06/08/22 at 0000, For 1 dose temazepam 15 mg oral capsule (18 sources) Benzodiazepine End: 06-16-2023 take 1 capsule by mouth once daily at bedtime temazepam (RESTORIL) 15 mg cap Take 15 mg by mouth daily at bedtime. 0 06/16/2023 Discontinued Comment on above: Take 15 mg by mouth daily at bedtime. tiZANidine 2 mg oral tablet (2 sources) Central alpha-2 Adrenergic Agonist End: 06-23-2022 torsemide 10 mg oral tablet (2 sources) Loop Diuretic Start: 06-19-2022 End: 06-21-2022 take 10 mg by mouth twice daily 10 mg, Oral, 2 times daily, First dose on Mon06/19/22 at 2100 traZODone hydrochloride 50 mg oral tablet (20 sources) Serotonin Reuptake Inhibitor Start: 06-13-2023 End: 07-08-2024 traZODone (DESYREL) 50 mg tablet 06/13/2023 07/08/2024 Discontinued vancomycin (VANCOCIN) 1,500 mg in dextrose 5 % 250 mL IVPB (1 source) Start: 04-05-2019 End: 04-05-2019 vancomycin (VANCOCIN) 1,500 mg in dextrose 5 % 250 mL IVPB zonisamide 100 mg oral capsule (20 sources) Anti-epileptic Agent Start: 03-24-2015 End: 06-16-2023 take 2 capsules by mouth once daily zonisamide (ZONEGRAN) 100 mg capsule Indications: 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 0 03/24/2015 06/16/2023 Discontinued Comment on above: Take 2 capsules by out once daily. (2 sources) End: 06-23-2022 (2 sources) Start: 06-15-2022 End: 06-17-2022 take 1250 mg intravenously every twelve hours (10 sources) Start: 06-15-2022 End: 06-17-2022 take 2000 mg intravenously every eight hours 2,000 mg, IntraVENous, at 33.3 mL/hr, Administer over 180 Minutes, Every 8 hours, First dose on Mon06/15/22 at 2200 Meropenem Med-Surg/Crit Care Init Dosing MEENU 8, [employer] S[employer] Manager cl >=50, 3h Suspected Indication (Select all that apply): Intra-Abdominal Infection Start: 06-14-2022 End: 06-15-2022 1,000 mg, IntraVENous, at 10 0 mL/hr, Administer over 30 Minutes, Every 24 hours, First dose on Mon06/14/22 at 1730, For 5 days Mini-Bag Plus bag Suspected Indication (Select all that apply): Intra-Abdominal Infection Start: 06-10-2022 End: 06-14-2022 take 4500 mg intravenously every six hours 4,500 mg, IntraVENous, at 200 mL/hr, Administer over 0.5 Hours, Every 6 hours, First dose on Mon06/10/22 at 1200 Suspected Indication (Select all that apply): Pneumonia (CAP), Intra-Abdominal Infection Start: 06-08-2022 End: 06-23-2022 take 4 mg by mouth every eight hours as needed for nausea and vomiting [Order 1 Start] Name: ondansetron ODT (Zofran-ODT) disintegrating tablet 4 mg Signed Summary: 4 mg, Oral, Every 8 hours PRN, nausea, vomiting, Starting on Mon06/08/22 at 0155 Patient should allow tablet to dissolve on tongue. Do not remove from blister pack until just before administering. [Order 1 End] [Order 2 Start] Name: ondansetron (Zofran) injection 4 mg Signed Summary: 4 mg, IntraVENous, Every 6 hours PRN, nausea, vomiting, Starting on Mon06/08/22 at 0155 Administer if oral route cannot be used. [Order 2 End] Start: 06-08-2022 End: 06-23-2022 take 650 mg by mouth every six hours as needed for pain and fever [Order 1 Start] Name: acetaminophen (Tylenol) tablet 650 mg Signed Summary: 650 mg, Oral, Every 6 hours PRN, mild pain (1-3), fever, For temp greater than 100.4 F (38 C), Starting on Mon06/08/22 at 0155 Maximum dose of acetaminophen is 4000 mg from all sources in 24 hours. [Order 1 End] [Order 2 Start] Name: acetaminophen (Tylenol) suppository 650 mg Signed Summary: 650 mg, Rectal, Every 6 hours PRN, mild pain (1-3), fever, For temp greater than 100.4 F (38 C), Starting on 06/08/22 at 0155 Administer if oral route cannot be used. Maximum dose of acetaminophen is 4000 mg from all sources in 24 hours. [Order 2 End] (2 sources) Start: 06-13-2022 End: 06-13-2022 take 75 mL intravenously once as needed 75 mL, IntraVENous, IMG once PRN, contrast, Starting on 06/13/22 at 1737, For 1 dose (2 sources) Start: 06-12-2022 End: 06-12-2022 1,500 mg, IntraVENous, Administer over 120 Minutes, Once, On 06/12/22 at 0900, For 1 dose First dose STAT, if not already given. premix bag Dosing of this medication varies based on severity of illness. Does this patient have sepsis or concern for sepsis (probable or documented infection plus systemic manifestations of infection)? No Suspected Indication (Select all that apply): Other Other Abx Indication: pancreatitis Coverage (Select all that apply): Staph, Methicillin Resistant (4 sources) Start: 06-09-2022 End: 06-09-2022 1.65 mg, IntraVENous, IMG once PRN, other, Suboptimal echo image, Starting on Jessica 06/09/22 at 1329, For 1 dose, CV Procedural Medications Only to be given in Echo Lab during CARDIAC STRESS TEST ONLY. Echoca rdiogram should first be performed without contrast and if exam is adequate then DO NOT administer the contrast. If unable to adequately visualize heart without contrast and the patient has no contraindications to echo contrast then administer the echo contrast. Start: 06-08-2022 End: 06-08-2022 1.65 mg, IntraVENous, IMG on ce PRN, other, Suboptimal echo image, Starting on Mon06/08/22 at 0243, For 1 dose, CV Procedural Medications Administer up to 1.65 mg via slow IVP for suboptimal echocardiogram enhancement. May administer a calculated dose or diluted 8.5 mL of 0.9% sodium chloride for a total volume of 10 mL. 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; Translations: [Ulcer of other part of foot] Onset: 08-23-2023 Chronic Coagulation and hemorrhagic disorders (20 sources) Platelet count below reference range; Translations: [Thrombocytopenia, unspecified] Onset: 03-14-2015 07-27-2022 Chronic Coronary atherosclerosis and other heart disease (20 sources) Angina pectoris; Translations: [Other forms of angina pectoris] Onset: 06-08-2022 07-27-2022 Chronic Diabetes mellitus without complication (2 sources) Type 2 diabetes mellitus without complications; Translations: [Type 2 diabetes mellitus without complications] Onset: 11-01-2023 Chronic Disorders of lipid metabolism (20 sources) Hyperlipidemia; Translations: [Hyperlipidemia, unspecified] Onset: 03-14-2015 03-14-2015 Chronic Essential hypertension (20 sources) Benign essential hypertension; Translations: [Essential (primary) hypertension] Onset: 03-09-2006 06-20-2018 Chronic Fluid and electrolyte disorders (20 sources) Hypokalemia; Translations: [Hypokalemia] Onset: 12-10-2021 07-28-2022 Episodic Headache; including migraine (20 sources) Chronic post-traumatic headache; Translations: [Chronic intractable migraine without aura] Onset: 09-25-2013 06-20-2018 Chronic Headache; including migraine (20 sources) Headache; Translations: [Headache] Onset: 03-09-2006 03-09-2006 Episodic Headache; including migraine (4 sources) Acute headache; Translations: [Chronic daily headache] Onset: 09-25-2013 09-25-2013 Hyperplasia of prostate (1 source) Benign prostatic hyperplasia without lower urinary tract symptoms; Translations: [Benign prostatic hyperplasia without lower urinary tract symptoms] Onset: 07-26-2024 Chronic Hypertension with complications and secondary hypertension (20 sources) Hypertensive urgency ; Translations: [Hypertensive urgency] Onset: 07-27-2022 07-27-2022 Chronic Intracranial injury (20 sources) Traumatic brain injury; Translations: [TBI (traumatic brain injury)] Onset: 09-25-2013 04-05-2019 Episodic Malaise and fatigue (1 source) Other fatigue; Translations: [Other fatigue] Onset: 07-09-2024 Episodic Mood disorders (20 sources) Depressive disorder; Translations: [Depressive disorder] Onset: 03-14-2015 06-20-2018 Chronic Other aftercare (1 source) Postoperative visit; Translations: [Encounter for other specified surgical aftercare] 11-16-2022 Episodic Other aftercare (2 sources) Other [place] [facility] therapy; Translations: [Other [place] (current) drug therapy] Onset: 03-27-2024 Episodic Other diseases of veins and lymphatics (20 sources) Chronic peripheral venous hypertension with lower extremity complication; Translations: [Chronic venous hypertension (idiopathic) with ulcer of right lower extremity] Onset: 06-08-2022 06-08-2022 Chronic Other diseases of veins and lymphatics (20 sources) Venous hypertension of lower limb; Translations: [Chronic venous hypertension (idiopathic) with ulcer of right lower extremity] Onset: 06-08-2022 07-27-2022 Chronic Other diseases of veins and lymphatics (20 sources) Lymphedema; Translations: [Lymphedema, not elsewhere classified] 08-23-2023 Chronic Other diseases of veins and lymphatics (2 sources) Chronic venous hypertension (idiopathic) with ulcer of left lower extremity; Translations: [Chronic venous hypertension (idiopathic) with ulcer of left lower extremity (HCC)] Onset: 04-09-2024 Chronic Other diseases of veins and lymphatics (2 sources) Chronic venous hypertension (idiopathic) with ulcer of right lower extremity; Translations: [Chronic venous hypertension (idiopathic) with ulcer of right lower extremity (HCC)] Onset: 07-27-2022 Chronic Other diseases of veins and lymphatics (2 sources) Lymphedema, not elsewhere classified; Translations: [Lymphedema, not elsewhere classified] Onset: 09-20-2023 Chronic Other diseases of veins and lymphatics (20 sources) Peripheral venous insufficiency; Translations: [Venous insufficiency (chronic) (peripheral)] Onset: 06-08-2022 07-27-2022 Episodic Other diseases of veins and lymphatics (2 sources) Venous insufficiency (chronic) (peripheral); Translations: [Venous insufficiency (chronic) (peripheral)] Onset: 07-27-2022 Episodic Other gastrointestinal disorders (2 sources) Constipation; Translations: [Constipation, unspecified] 06-23-2023 Episodic Other nervous system disorders (20 sources) Reduced mobility; Translations: [Other abnormalities of gait and mobility] 08-23-2023 Episodic Other nervous system disorders (2 sources) Other abnormalities of gait and mobility; Translations: [Other abnormalities of gait and mobility] Onset: 02-07-2024 Episodic Other non-traumatic joint disorders (1 source) Pain of right wrist; Translations: [Right wrist pain] Onset: 04-30-2010 04-30-2010 Other nutritional; endocrine; and metabolic disorders (20 sources) Obese class I; Translations: [Obesity, unspecified] Onset: 01-27-2020 07-27-2022 Chronic Other nutritional; endocrine; and metabolic disorders (20 sources) Body mass index 30+ - obesity; Translations: [Body mass index (BMI) 32.0-32.9, adult] Onset: 10-28-2022 10-28-2022 Chronic Other nutritional; endocrine; and metabolic disorders (1 source) Obese class I; Translations: [Obesity, Class I, BMI 30-34.9] Onset: 01-27-2020 01-27-2020 Paralysis (20 sources) Hemiplegia; Translations: [Hemiplegia, unspecified affecting unspecified side] Onset: 03-14-2015 06-20-2018 Chronic Peripheral and visceral atherosclerosis (20 sources) Peripheral vascular disease; Translations: [Peripheral vascular disease, unspecified] Onset: 06-08-2022 07-27-2022 Chronic Residual codes; unclassified (1 source) Insomnia; Translations: [Insomnia, unspecified] 06-16-2023 Episodic Skin and subcutaneous tissue infections (1 source) Cellulitis of right lower limb; Translations: [Cellulitis of leg, right] Onset: 10-03-2015 04-05-2019 Suicide and intentional self-inflicted injury (2 sources) Suicidal thoughts; Translations: [Suicidal ideations] 11-17-2022 Episodic Thyroid disorders (1 source) Hypothyroidism, unspecified; Translations: [Hypothyroidism, unspecified] Onset: 08-19-2024 Chronic Unclassified (2 sources) Wound Care; Translations: [Wound Care] Onset: 12-27-2023 Past or Other Problems Problem Classification Problem Date Documented Da te Episodic/Chronic Abdominal pain (10 sources) Epigastric pain; Translations: [Epigastric pain] Onset: 06-22-2023 Episodic Acute and unspecified renal failure (20 sources) Acute renal failure syndrome; Translations: [Acute kidney failure, unspecified] Onset: 06-08-2022 07-27-2022 Episodic Nonspecific chest pain (20 sources) Chest pain; Translations: [Chest pain, unspecified] Onset: 06-08-2022 06-08-2022 Episodic Open wounds of head; neck; and trunk (20 sources) Scalp laceration; Translations: [Laceration without foreign body of scalp, initial encounter] Onset: 07-27-2022 07-27-2022 Episodic Other aftercare (20 sources) Long-term current use of drug therapy; Translations: [Other [place] [facility] (current[facility] drug therapy] Onset: 02-26-2022 07-27-2022 Episodic Other gastrointestinal disorders (20 sources) History of pancreatitis; Translations: [Personal history of other diseases of the digestive system] Onset: 10-28-2022 Resolved: 11-16-2022 11-16-2022 Episodic Other gastrointestinal disorders (2 sources) Constipation, unspecified; Translations: [Constipation, unspecified] Onset: 06-22-2023 Episodic Other injuries and conditions due to external causes (20 sources) Injury of head; Translations: [Unspecified injury of head, initial encounter] Onset: 07-27-2022 07-27-2022 Episodic Other lower respiratory disease (2 sources) Chest pain on breathing; Translations: [Chest pain on breathing] Episodic Other non-traumatic joint disorders (20 sources) Joint pain; Translations: [Pain in unspecified joint] Onset: 03-09-2022 07-27-2022 Episodic Other non-traumatic joint disorders (20 sources) Pain of right wrist; Translations: [Pain in right wrist] Onset: 04-30-2010 07-27-2022 Episodic Other screening for suspected conditions (not mental disorders or infectious disease) (2 sources) Platelet count below reference range; Translations: [Increased lactic acid level] Onset: 03-14-2015 03-14-2015 Episodic Pancreatic disorders (not diabetes) (20 sources) Acute pancreatitis; Translations: [Acute pancreatitis without necrosis or infection, unspecified] Onset: 07-14-2022 Resolved: 11-16-2022 07-27-2022 Episodic Residual codes; unclassified (1 source) Chronic back pain ; Translations: [Chronic back pain] Onset: 03-14-2015 03-14-2015 Episodic Residual codes; unclassified (1 source) Localized edema; Translations: [Localized edema] Onset: 09-28-2023 Episodic Skin and subcutaneous tissue infections (20 sources) Cellulitis and abscess of lower limb; Translations: [Cellulitis] Onset: 10-03-2015 01-21-2020 Episodic Spondylosis; intervertebral disc disorders; other back problems (20 sources) Neck pain; Translations: [Chronic back pain ] Onset: 03-09-2006 03-09-2006 Episodic Results Test Name Value Interpretation Reference Range Facility Serum or plasma valproate me asurement (mass/volume)Ordered By: Demetrius Fenton on 07-29-2024 Valproate [Mass/Vol] 57 ug/mL 50-100 [facility] Comment on above: Valproic Acid concen trations >100 ug/mL are potentially toxic. Valproic Acid (Depakene) Lev alison 07-29-2024 VALPROIC ACID 57 ug/mL Normal 50-100 [facility] Comment on above: Order Comment: 107.1 Result Comment: Valp roic Acid concentrations >100 ug/mL are potentially toxic. Performed By: #### L 501.8100, L500.4100, L100.0500 #### [facility] [address] [place], [place], [id number] Anion gap in Serum or Plasma Ordered By: Demetrius Fenton on 07-22-2024 Anion gap [Moles/Vol] 14 mmol/L -15 [facility] BUN/creatinine ratioOrdered By: Demetrius Fenton on 07-22-2024 Urea nitrogen/Creatinine [Mass ratio] 11.2 mg/mg - [facility] Basic Metabolic Profile (BMP )on 07-22-2024 BUN/CRE 11.2 RATIO Normal - [facility] Comment on above: Order Comment: 107.1 Performed By: #### L [id number], L500.4100, L100.0500 #### [facility] [address] [place], [address] Calcium [Mass/Vol] 9.1 mg/dL Normal 7.6-11.0 [facility] Comment on above: Order Comment: 107.1 Performed By: #### L [id number], L500.4100, L100.0500 #### [facility] [address] [place], [address] Chloride [Moles/Vol] 97 mmol/L Low 98-108 [facility] Comment on above: Order Comment: 107.1 Performed By: #### L [id number], L500.4100, L100.0500 #### [facility] [address] [place], [address] CO2 [Moles/Vol] 21.4 mmol/L Normal 21.0-32.0 [facility] Comment on above: Order Comment: 107.1 Performed By: #### L [id number], L500.4100, L100.0500 #### [facility] [address] [place], [address] Creatinine [Mass/Vol] 1.20 mg/dL Normal 0.70-1.20 [facility] Comment on above: Order Comment: 107.1 Performed By: #### L [id number], L500.4100, L100.0500 #### [facility] [address] [place], [address] GAP 14 Normal 5-15 [facility] Comment on above: Order Comment: 107.1 Performed By: #### L [id number], L500.4100, L100.0500 #### [facility] [address] [place], [address] GFR/1.73 sq M.predicted among non-blacks MDRD (S/P/Bld) [Vol rate/Area] 69 mL/min/{1.73_m2} Normal >60 [facility] Comment on above: Order Comment: 107.1 Result Comment: mL/m in/1.73m2 CKD-EPI Creatinine Equation (2020) Performed By: #### L [id number], L500.4100, L100.0500 #### [facility] [address] [place], [address] Glucose [Mass/Vol] 184 mg/dL High 70-99 [facility] Comment on above: Order Comment: 107.1 Performed By: #### L [id number], L500.4100, L100.0500 #### [facility] [address] [place], [address] Potassium [Moles/Vol] 4.4 mmol/L Normal 3.3-5.1 [facility] Comment on above: Order Comment: 107.1 Performed By: #### L [id number], L500.4100, L100.0500 #### [facility] [address] [place], [address] Sodium [Moles/Vol] 132 mmol/L Low 133-145 [facility] Comment on above: Order Comment: 107.1 Performed By: #### L [id number], L500.4100, L100.0500 #### [facility] [address] [place], [address] Urea nitrogen [Mass/Vol] 13 mg/dL Normal 4-19 [facility] Comment on above: Order Comment: 107.1 Performed By: #### L 501.8100, L500.4100, L100.0500 #### [facility] [address] [place], [address] CBC-Complete Blood Cnt No Susan acharya 07-22-2024 Erythrocyte distribution width (RBC) [Ratio] 13.0 % Normal 11.6-14.6 [facility] Comment on above: Order Comment: 107.1 Performed By: #### L 501.8100, L500.4100, L100.0500 #### [facility] [address] [place], [address] Hematocrit (Bld) [Volume fraction] 41.7 % Normal 40-54 [facility] Comment on above: Order Comment: 107.1 Performed By: #### L [id number], L500.4100, L100.0500 #### [facility] [address] [place], [address] Hemoglobin (Bld) [Mass/Vol] 14.6 g/dL Normal 13.0-16.5 [facility] Comment on above: Order Comment: 107.1 Performed By: #### L 501.8100, L500.4100, L100.0500 #### [facility] [address] [place], [address] MCH (RBC) [Entitic mass] 32.4 pg High 27.0-32.0 [facility] Comment on above: Order Comment: 107.1 Performed By: #### L 501.8100, L500.4100, L100.0500 #### [facility] [address] [place], [address] MCHC (RBC) [Mass/Vol] 35.0 g/dL Normal 32-36 [facility] Comment on above: Order Comment: 107.1 Performed By: #### L 501.8100, L500.4100, L100.0500 #### [facility] [address] [place], [address] MCV (RBC) [Entitic vol] 92.7 fL Normal 80-94 [facility] Comment on above: Order Comment: 107.1 Performed By: #### L [id number], L500.4100, L100.0500 #### [facility] [address] [place], [address] Platelet mean volume (Bld) [Entitic vol] 11.3 fL Normal 6.2-12.0 [facility] Comment on above: Order Comment: 107.1 Performed By: #### L 501.8100, L500.4100, L100.0500 #### [facility] [address] [place], [address] Platelets (Bld) [#/Vol] 136 10*3/uL Low 150-450 [facility] Comment on above: Order Comment: 107.1 Performed By: #### L 501.8100, L500.4100, L100.0500 #### [facility] [address] [place], [address] RBC (Bld) [#/Vol] 4.50 10*6/uL Low 4.6-6.2 [facility] Comment on above: Order Comment: 107.1 Performed By: #### L 501.8100, L500.4100, L100.0500 #### [facility] [address] [place], [address] RDW SD 43.0 fl Normal 35.1-43.9 [facility] Comment on above: Order Comment: 107.1 Performed By: #### L 501.8100, L500.4100, L100.0500 #### [facility] [address] [place], [address] WBC (Bld) [#/Vol] 5.9 10*3/uL Normal 4.4-11.0 [facility] Comment on above: Order Comment: 107.1 Performed By: #### L 501.8100, L500.4100, L100.0500 #### [facility] [place], [address] Carbon dioxide, total [Moles /volume] in Central venous bloodOrdered By: Demetrius Fenton on 07-22-2024 CO2 [Moles/Vol] 21.4 mmol/L 21.0-32.0 [facility] Chloride assayOrdered By: Travis Finch on 07-22-2024 Chloride [Moles/Vol] 97 mmol/L Low 98-108 [facility] Erythrocyte distribution wid th (RBC) [Ratio]Ordered By: Demetrius Fenton on 07-22-2024 Erythrocyte distribution width (RBC) [Entitic vol] 43.0 fL 35.1-43.9 [facility] Erythrocyte distribution wid th ratioOrdered By: Demetrius Fenton on 07-22-2024 Erythrocyte distribution width (RBC) [Ratio] 13.0 % 11.6-14.6 [facility] Erythrocyte distribution wid th standard deviationOrdered By: Demetrius Fenton on 07-22-2024 Erythrocyte distribution width (RBC) [Ratio] 43.0 fl 35.1-43.9 [facility] GFR/1.73 sq M.predicted gabino g non-blacks MDRD (S/P/Bld) [Vol rate/Area]Ordered By: Demetrius Fenton on 07-22-2024 Estimated GFR (MDRD) Non-Af Amer 69 >60 [facility] Comment on above: mL/min/1.73m2 CKD-EP I Creatinine Equation (2020) Glomerular filtration rate ( GFR) estimation/1.73 sq m using serum, plasma, or whole bOrdered By: Demetrius Fenton on 07-22-2024 GFR/1.73 sq M.predicted among non-blacks MDRD (S/P/Bld) [Vol rate/Area] 69 mL/min/{1.73_m2} >60 [facility] Comment on above: mL/min/1.73m2 CKD-EP I Creatinine Equation (2020) Hematocrit Auto (Bld) [Volum e fraction]Ordered By: Demetrius Fenton on 07-22-2024 Hematocrit (Bld) [Volume fraction] 41.7 % 40-54 [facility] Hemoglobin measurementOrdere d By: Demetrius Fenton on 07-22-2024 Hemoglobin (Bld) [Mass/Vol] 14.6 g/dL 13.0-16.5 [facility] MCV (mean corpuscular volume ) determinationOrdered By: Demetrius Fenton on 07-22-2024 MCV (RBC) [Entitic vol] 92.7 fL 80-94 [facility] Mean corpuscular hemoglobin (MCH) determinationOrdered By: Demetrius Fenton on 07-22-2024 MCH (RBC) [Entitic mass] 32.4 pg High 27.0-32.0 [facility] Mean corpuscular hemoglobin concentration (MCHC) determinationOrdered By: Demetrius Fenton on 07-22-2024 MCHC (RBC) [Mass/Vol] 35.0 g/dL 32-36 [facility] Mean platelet volume determi nationOrdered By: Demetrius Fenton on 07-22-2024 Platelet mean volume (Bld) [Entitic vol] 11.3 fL 6.2-12.0 [facility] Platelet countOrdered By: Travis Finch on 07-22-2024 Platelets (Bld) [#/Vol] 136 10*3/uL Low 150-450 [facility] Potassium (Unsp spec) [Mass/ Vol]Ordered By: Demetrius Fenton on 07-22-2024 Potassium [Moles/Vol] 4.4 mmol/L 3.3-5.1 [facility] Potassium measurement (mass/ volume)Ordered By: Demetrius Fenton on 07-22-2024 Potassium (Unsp spec) [Mass/Vol] 4.4 mmol/L 3.3-5.1 [facility] RBC Auto (Bld) [#/Vol]Ordere d By: Demetrius Fenton on 07-22-2024 RBC (Bld) [#/Vol] 4.50 10*6/uL Low 4.6-6.2 [facility] Serum creatinine measurement (mass/volume)Ordered By: Demetrius Fenton on 07-22-2024 Creatinine [Mass/Vol] 1.20 mg/dL 0.70-1.20 [facility] Serum glucose measurement (m ass/volume)Ordered By: Demetrius Fenton on 07-22-2024 Glucose [Mass/Vol] 184 mg/dL High 70-99 [facility] Serum or plasma calcium roseanne urement (mass/volume)Ordered By: Demetrius Fenton on 07-22-2024 Calcium [Mass/Vol] 9.1 mg/dL 7.6-11.0 [facility] Serum or plasma urea nitroge n measurement (mass/volume)Ordered By: Demetrius Fenton on 07-22-2024 Urea nitrogen [Mass/Vol] 13 mg/dL 4-19 [facility] Sodium levelOrdered By: Angel Fenton on 07-22-2024 Sodium [Moles/Vol] 132 mmol/L Low 133-145 [facility] White blood cell (WBC) count Ordered By: Demetrius Fenton on 07-22-2024 WBC (Bld) [#/Vol] 5.9 10*3/uL 4.4-11.0 [facility] CBC-Complete Blood Cnt No Di ffon 07-08-2024 Erythrocyte distribution width (RBC) [Ratio] 13.2 % Normal 11.6-14.6 [facility] Comment on above: Order Comment: 107.1 Performed By: #### L 501.8100, L500.4100, L100.0500 #### [facility] [address] [place], [address] Hematocrit (Bld) [Volume fraction] 45.3 % Normal 40-54 [facility] Comment on above: Order Comment: 107.1 Performed By: #### L [id number], L500.4100, L100.0500 #### [facility] [address] [place], [address] Hemoglobin (Bld) [Mass/Vol] 15.6 g/dL Normal 13.0-16.5 [facility] Comment on above: Order Comment: 107.1 Performed By: #### L [id number], L500.4100, L100.0500 #### [facility] [address] [place], [address] MCH (RBC) [Entitic mass] 32.0 pg Normal 27.0-32.0 [facility] Comment on above: Order Comment: 107.1 Performed By: #### L [id number], L500.4100, L100.0500 #### [facility] [address] [place], [address] MCHC (RBC) [Mass/Vol] 34.4 g/dL Normal 32-36 [facility] Comment on above: Order Comment: 107.1 Performed By: #### L [id number], L500.4100, L100.0500 #### [facility] [address] [place], [address] MCV (RBC) [Entitic vol] 93.0 fL Normal 80-94 [facility] Comment on above: Order Comment: 107.1 Performed By: #### L [id number], L500.4100, L100.0500 #### [facility] [address] [place], [address] Platelet mean volume (Bld) [Entitic vol] 10.6 fL Normal 6.2-12.0 [facility] Comment on above: Order Comment: 107.1 Performed By: #### L [id number], L500.4100, L100.0500 #### [facility] [address] [place], [address] Platelets (Bld) [#/Vol] 139 10*3/uL Low 150-450 [facility] Comment on above: Order Comment: 107.1 Performed By: #### L 501.8100, L500.4100, L100.0500 #### [facility] [address] [place], [address] RBC (Bld) [#/Vol] 4.87 10*6/uL Normal 4.6-6.2 [facility] Comment on above: Order Comment: 107.1 Performed By: #### L 501.8100, L500.4100, L100.0500 #### [facility] [address] [place], [address] RDW SD 44.1 fl High 35.1-43.9 [facility] Comment on above: Order Comment: 107.1 Performed By: #### L [id number], L500.4100, L100.0500 #### [facility] [address] [place], [address] WBC (Bld) [#/Vol] 7.9 10*3/uL Normal 4.4-11.0 [facility] Comment on above: Order Comment: 107.1 Performed By: #### L 501.8100, L500.4100, L100.0500 #### [facility] [address] [place], [address] CNOVon 07-08-2024 CNOV Office Visit ([facility] ) MOISES MADRID ([id number]) 1960 M Date Time Provider Department 07/08/24 12:00 PM CHHAYA SALDANA [facility] During your visit today, we recorded the following information about you: Pulse Blood pressure Weight Height 83/minute 114/75 107 kg 1.829 m Chhaya Saldana MD 07/08/2024 10:59 PM Signed FOLLOW UP NOTE Subjective Moises Wong Julius is a 63 year old male who presents for follow up. 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 His examination demonstrates spastic right sided weakness. Constant headache since his trauma, mildly migrainous but not overly so, in the past has been called several different types of headache in seeing multiple neurologists. Could have a component of medication overuse headache from opiates. Wouldn't suggest adding a neuropsychiatrically active medication with the other meds he is taking. Will try Aimovig 70 mg daily. He is on memantine, unclear data with TBI, he wants to try to reduce his meds, could taper off memantine if interested. I don't feel comfortable managing his insomnia with his psychiatric history and current complicated regimen of psychiatric medications. HPI Current Issues - No clear benefit or side effects to Aimovig 140 - Headache currently more holocranial, throbbing / pulsing pain - Photophobia more than phonophobia, no nausea - Not positional - Is now on amitriptyline 10 mg QHS Current neuropsychiatric medications (with listed indications on med list): - Abilify 10 mg daily (MDD) - Amitriptyline 10 mg QHS - Depakote 250 mg TID (bipolar disorder with psychotic features) - Venlafaxine XR 75 mg BID (depression) - Gabapentin 400 mg Tid (pain) - Melatonin 10 mg QHS (sleep) - Aimovig 140 mg monthly - [place] 5 mg q8hrs PRN pain (takes around 3 times a day for the head, also has pain in the right foot) Current Outpatient Medications Medication Sig Dispense Refill erenumab-aooe (AIMOVIG AUTOINJECTOR) 140 mg/mL auto-injector Inject 140 mg subcutaneously once every month. Do not shake. albuterol HFA (PROVENTIL HFA) 90 mcg/actuation inhaler Inhale 2 Puffs as instructed every 6 hours as needed for wheezing/shortness of breath. amitriptyline (ELAVIL) 10 mg tablet Take 10 mg by mouth. vitamin B complex (B-COMPLEX ORAL) Take 10 mg by mouth once daily. W/ biotin and folic acid BIOTIN ORAL Take 10 mg by mouth once daily. Bisacodyl (DULCOLAX) 5 mg tab Take 5 mg by mouth as needed for constipation. polyethylene glycol 3350 (MIRALAX) 17 gram packet Take 17 g by mouth once daily. Dissolve dose in 4 - 8 ounces of liquid and take as directed. senna-docusate (SENNA WITH DOCUSATE SODIUM) 8.6-50 mg per tablet Take 2 tablets by mouth once daily. ondansetron (ZOFRAN) 4 mg tablet Take by mouth every 6 hours as needed for nausea/vomiting. bisacodyl (DULCOLAX) 10 mg supp 10 mg by RECTAL route at bedtime as needed. cloNIDine HCl (CATAPRES) 0.1 mg tablet Take 0.1 mg by mouth. gabapentin (NEURONTIN) 400 mg capsule fluticasone (FLONASE) 50 mcg/actuation nasal spray ammonium lactate (LAC-HYDRIN) 12 % lotion Apply to affected area. lisinopril (ZESTRIL) 20 mg tablet glucosamine sulfate (GLUCOSAMINE ORAL) Take by mouth. metoprolol tartrate, short acting, (LOPRESSOR) 25 mg tablet Take 25 mg by mouth two times a day. magnesium hydroxide (MOM) 400 mg/5 mL suspension Take 30 mL by mouth at bedtime as needed. spironolactone (ALDACTONE) 100 mg tablet miconazole 2 % powder Apply to affected area two times a day. triamcinolone acetonide (KENALOG) 0.1 % cream Apply to affected area. HYDROcodone-acetaminoph en (NORCO) 5-325 mg per tablet Take 1 tablet by mouth every 8 hours as needed for pain. tamsulosin ER (FLOMAX) 0.4 mg Take 1 capsule by mouth once daily. melatonin 3 mg tablet Take 5 mg by mouth daily at bedtime. ARIPiprazole (ABILIFY) 10 mg tablet Take 10 mg by mouth once daily. famotidine (PEPCID) 40 mg tablet Take 20 mg by mouth once daily. venlafaxine (EFFEXOR) 75 mg tablet Take 150 mg by mouth two times a day. albuterol (PROVENTIL) 2.5 mg /3 mL (0.083 %) nebulizer solution Use 3 mL via nebulizer every 4 hours as needed for Wheezing/Shortness of Breath. 0 cholecalciferol, vitamin D3, 50,000 unit tab Take 1 capsule by mouth once each week. omega-3 fatty acids 1,000 mg cap Take 2 g by mouth twice daily. divalproex ER (DEPAKOTE ER) 500 mg 24 hr tablet Take 500 mg by mouth two times a day. acetaminophen 325 mg cap Take 650 mg by mouth every 6 hours as needed. atorvastatin (LIPITOR) 40 mg tablet Take 1 tablet by mouth daily at bedtime. 0 docusate sodium (COLACE) 100 mg capsule Take 1 capsule by mouth once (more content not included)... Normal [facility] Erythrocyte distribution wid th ratioOrdered By: Demetrius Fenton on 07-08-2024 Erythrocyte distribution width (RBC) [Ratio] 13.2 % 11.6-14.6 [facility] Erythrocyte distribution wid th standard deviationOrdered By: Demetrius Fenton on 07-08-2024 Erythrocyte distribution width (RBC) [Entitic vol] 44.1 fL High 35.1-43.9 [facility] Erythrocyte distribution width (RBC) [Ratio] 44.1 fl High 35.1-43.9 [facility] Hematocrit Auto (Bld) [Volum e fraction]Ordered By: Demetrius Fenton on 07-08-2024 Hematocrit (Bld) [Volume fraction] 45.3 % 40-54 [facility] Hemoglobin measurementOrdere d By: Demetrius Fenton on 07-08-2024 Hemoglobin (Bld) [Mass/Vol] 15.6 g/dL 13.0-16.5 [facility] MCV (mean corpuscular volume ) determinationOrdered By: Demetrius Fenton on 07-08-2024 MCV (RBC) [Entitic vol] 93.0 fL 80-94 [facility] Mean corpuscular hemoglobin (MCH) determinationOrdered By: Demetrius Fenton on 07-08-2024 MCH (RBC) [Entitic mass] 32.0 pg 27.0-32.0 [facility] Mean corpuscular hemoglobin concentration (MCHC) determinationOrdered By: Demetrius Fenton on 07-08-2024 MCHC (RBC) [Mass/Vol] 34.4 g/dL 32-36 [facility] Mean platelet volume determi nationOrdered By: Demetrius Fenton on 07-08-2024 Platelet mean volume (Bld) [Entitic vol] 10.6 fL 6.2-12.0 [facility] Platelet countOrdered By: Travis Finch on 07-08-2024 Platelets (Bld) [#/Vol] 139 10*3/uL Low 150-450 [facility] RBC Auto (Bld) [#/Vol]Ordere d By: Demetrius Fenton on 07-08-2024 RBC (Bld) [#/Vol] 4.87 10*6/uL 4.6-6.2 [facility] Serum or plasma valproate me asurement (mass/volume)Ordered By: Demetrius Fenton on 07-08-2024 Valproate [Mass/Vol] 43 ug/mL Low 50-100 [facility] Comment on above: Valproic Acid concen trations >100 ug/mL are potentially toxic. Valproate [Mass/Vol]Ordered By: Demetrius Fenton on 07-08-2024 Valproic Acid (Depakene) Level 43 ug/mL Low 50-100 [facility] Comment on above: Valproic Acid concen trations >100 ug/mL are potentially toxic. Valproic Acid (Depakene) Lev alison 07-08-2024 VALPROIC ACID 43 ug/mL Low 50-100 [facility] Comment on above: Order Comment: 107.1 Result Comment: Valp roic Acid concentrations >100 ug/mL are potentially toxic. Performed By: #### L 501.8100, L500.4100, L100.0500 #### [facility] [address] [place], [address] White blood cell (WBC) count Ordered By: Demetrius Fenton on 07-08-2024 WBC (Bld) [#/Vol] 7.9 10*3/uL 4.4-11.0 [facility] BUN/creatinine ratioOrdered By: Demetrius Fenton on 06-10-2024 Urea nitrogen/Creatinine [Mass ratio] 14.5 mg/mg 10-20 [facility] Basic Metabolic Profile (BMP )on 06-10-2024 Anion gap [Moles/Vol] 14 mmol/L Normal 5-15 [facility] Comment on above: Order Comment: 107.1 Performed By: #### L 501.8100, L500.4100, L100.0500 #### [facility] [address] [place], [address] BUN/CRE 14.5 RATIO Normal - [facility] Comment on above: Order Comment: 107.1 Performed By: #### L [id number], L500.4100, L100.0500 #### [facility] [address] [place], [address] Calcium [Mass/Vol] 9.5 mg/dL Normal 7.6-11.0 [facility] Comment on above: Order Comment: 107.1 Performed By: #### L [id number], L500.4100, [id number] #### [facility] [address] [place], [address] Chloride [Moles/Vol] 99 mmol/L Normal 96-108 [facility] Comment on above: Order Comment: 107.1 Performed By: #### L 501.8100, L500.4100, L100.0500 #### [facility] [address] [place], [address] CO2 [Moles/Vol] 24.0 mmol/L Normal 22.0-29.0 [facility] Comment on above: Order Comment: 107.1 Performed By: #### L 501.8100, L500.4100, L100.0500 #### [facility] [address] [place], [address] Creatinine [Mass/Vol] 1.20 mg/dL Normal 0.70-1.20 [facility] Comment on above: Order Comment: 107.1 Performed By: #### L 501.8100, L500.4100, L100.0500 #### [facility] [address] [place], [address] GFR/1.73 sq M.predicted among non-blacks MDRD (S/P/Bld) [Vol rate/Area] 69 mL/min/{1.73_m2} Normal >60 [facility] Comment on above: Order Comment: 107.1 Result Comment: mL/m in/1.73m2 CKD-EPI Creatinine Equation (2020) Performed By: #### L 501.8100, L500.4100, L100.0500 #### [facility] [address] [place], [address] Glucose [Mass/Vol] 107 mg/dL High 70-99 [facility] Comment on above: Order Comment: 107.1 Performed By: #### L 501.8100, L500.4100, L100.0500 #### [facility] [address] [place], [address] Potassium [Moles/Vol] 4.7 mmol/L Normal 3.3-5.1 [facility] Comment on above: Order Comment: 107.1 Result Comment: Hemo lysis present, Results??could be affected. ?? Performed By: #### L 501.8100, L500.4100, L100.0500 #### [facility] [address] [place], [address] Sodium [Moles/Vol] 137 mmol/L Normal 133-145 [facility] Comment on above: Order Comment: 107.1 Performed By: #### L 501.8100, L500.4100, L100.0500 #### [facility] [address] [place], [address] Urea nitrogen [Mass/Vol] 17 mg/dL Normal 4-19 [facility] Comment on above: Order Comment: 107.1 Performed By: #### L 501.8100, L500.4100, L100.0500 #### [facility] [address] [place], [address] CBC-Complete Blood Cnt No Di ffon 06-10-2024 Erythrocyte distribution width (RBC) [Ratio] 13.7 % Normal 11.6-14.6 [facility] Comment on above: Order Comment: 107.1 Performed By: #### L 501.8100, L500.4100, L100.0500 #### [facility] [address] [place], [address] Hematocrit (Bld) [Volume fraction] 44.8 % Normal 40-54 [facility] Comment on above: Order Comment: 107.1 Performed By: #### L 501.8100, L500.4100, [id number] #### [facility] [address] [place], [address] Hemoglobin (Bld) [Mass/Vol] 15.5 g/dL Normal 13.0-16.5 [facility] Comment on above: Order Comment: 107.1 Performed By: #### L 501.8100, [id number], L100.0500 #### [facility] [address] [place], [address] MCH (RBC) [Entitic mass] 31.9 pg Normal 27.0-32.0 [facility] Comment on above: Order Comment: 107.1 Performed By: #### L 501.8100, L500.4100, L100.0500 #### [facility] [address] [place], [address] MCHC (RBC) [Mass/Vol] 34.6 g/dL Normal 32-36 [facility] Comment on above: Order Comment: 107.1 Performed By: #### L 501.8100, L500.4100, L100.0500 #### [facility] [address] [place], [address] MCV (RBC) [Entitic vol] 92.2 fL Normal 80-94 [facility] Comment on above: Order Comment: 107.1 Performed By: #### L 501.8100, L500.4100, [id number] #### [facility] [address] [place], [address] Platelet mean volume (Bld) [Entitic vol] 11.5 fL Normal 6.2-12.0 [facility] Comment on above: Order Comment: 107.1 Performed By: #### L 501.8100, L500.4100, L100.0500 #### [facility] [address] [place], [address] Platelets (Bld) [#/Vol] 130 10*3/uL Low 150-450 [facility] Comment on above: Order Comment: 107.1 Performed By: #### L 501.8100, L500.4100, [id number] #### [facility] [address] [place], [address] RBC (Bld) [#/Vol] 4.86 10*6/uL Normal 4.6-6.2 [facility] Comment on above: Order Comment: 107.1 Performed By: #### L 501.8100, L500.4100, [id number] #### [facility] [address] [place], [address] RDW SD 45.3 fl High 35.1-43.9 [facility] Comment on above: Order Comment: 107.1 Performed By: #### L 501.8100, L500.4100, [id number] #### [facility] [address] [place], [address] WBC (Bld) [#/Vol] 7.7 10*3/uL Normal 4.4-11.0 [facility] Comment on above: Order Comment: 107.1 Performed By: #### L 501.8100, L500.4100, [id number] #### [facility] [address] [place], [address] Carbon dioxide measurementOr dered By: Demetrius Fenton on 06-10-2024 CO2 [Moles/Vol] 24.0 mmol/L 22.0-29.0 [facility] Chloride measurementOrdered By: Demetrius Fenton on 06-10-2024 Chloride [Moles/Vol] 99 mmol/L 96-108 [facility] Erythrocyte distribution wid th ratioOrdered By: Demetrius Fenton on 06-10-2024 Erythrocyte distribution width (RBC) [Ratio] 13.7 % 11.6-14.6 [facility] Erythrocyte distribution wid th standard deviationOrdered By: Demetrius Fenton on 06-10-2024 Erythrocyte distribution width (RBC) [Entitic vol] 45.3 fL High 35.1-43.9 [facility] Erythrocyte distribution width (RBC) [Ratio] 45.3 fl High 35.1-43.9 [facility] GFR/1.73 sq M.predicted gabino g non-blacks MDRD (S/P/Bld) [Vol rate/Area]Ordered By: Demetrius Fenton on 06-10-2024 Estimated GFR (MDRD) Non-Af Amer 69 >60 [facility] Comment on above: mL/min/1.73m2 CKD-EP I Creatinine Equation (2020) Glomerular filtration rate ( GFR) estimation/1.73 sq m using serum, plasma, or whole bOrdered By: Demetrius Fenton on 06-10-2024 GFR/1.73 sq M.predicted among non-blacks MDRD (S/P/Bld) [Vol rate/Area] 69 mL/min/{1.73_m2} >60 [facility] Comment on above: mL/min/1.73m2 CKD-EP I Creatinine Equation (2020) Hematocrit Auto (Bld) [Volum e fraction]Ordered By: Demetrius Fenton on 06-10-2024 Hematocrit (Bld) [Volume fraction] 44.8 % 40-54 [facility] Hemoglobin measurementOrdere d By: Demetrius Fenton on 06-10-2024 Hemoglobin (Bld) [Mass/Vol] 15.5 g/dL 13.0-16.5 [facility] MCV (mean corpuscular volume ) determinationOrdered By: Demetrius Fenton on 06-10-2024 MCV (RBC) [Entitic vol] 92.2 fL 80-94 [facility] Mean corpuscular hemoglobin (MCH) determinationOrdered By: Demetrius Fenton on 06-10-2024 MCH (RBC) [Entitic mass] 31.9 pg 27.0-32.0 [facility] Mean corpuscular hemoglobin concentration (MCHC) determinationOrdered By: Demetrius Fenton on 06-10-2024 MCHC (RBC) [Mass/Vol] 34.6 g/dL 32-36 [facility] Mean platelet volume determi nationOrdered By: Demetrius Fenton on 06-10-2024 Platelet mean volume (Bld) [Entitic vol] 11.5 fL 6.2-12.0 [facility] Platelet countOrdered By: Travis Finch on 06-10-2024 Platelets (Bld) [#/Vol] 130 10*3/uL Low 150-450 [facility] RBC Auto (Bld) [#/Vol]Ordere d By: Demetrius Fenton on 06-10-2024 RBC (Bld) [#/Vol] 4.86 10*6/uL 4.6-6.2 [facility] Serum creatinine measurement (mass/volume)Ordered By: Demetrius Fenton on 06-10-2024 Creatinine [Mass/Vol] 1.20 mg/dL 0.70-1.20 [facility] Serum glucose measurement (m ass/volume)Ordered By: Demetrius Fenton on 06-10-2024 Glucose [Mass/Vol] 107 mg/dL High 70-99 [facility] Serum or plasma anion gap de termination (moles/volume)Ordered By: Demetrius Fenton on 06-10-2024 Anion gap [Moles/Vol] 14 mmol/L 5-15 [facility] Serum or plasma calcium roseanne urement (mass/volume)Ordered By: Demetrius Fenton on 06-10-2024 Calcium [Mass/Vol] 9.5 mg/dL 7.6-11.0 [facility] Serum or plasma potassium me asurementOrdered By: Demetrius Fenton on 06-10-2024 Potassium [Moles/Vol] 4.7 mmol/L 3.3-5.1 [facility] Comment on above: Hemolysis present, R esults could be affected. Serum or plasma sodium measu rement (moles/volume)Ordered By: Demetrius Fenton on 06-10-2024 Sodium [Moles/Vol] 137 mmol/L 133-145 [facility] Serum or plasma urea nitroge n measurement (mass/volume)Ordered By: Demetrius Fenton on 03-03-2025 Urea nitrogen [Mass/Vol] 17 mg/dL 4-19 [facility] White blood cell (WBC) count Ordered By: Demetrius Fenton on 06-10-2024 WBC (Bld) [#/Vol] 7.7 10*3/uL 4.4-11.0 [facility] 37on 04-09-2024 37 Ordered treatment completed and patient is healed. Patient discharged without any issues. All questions answered. Call the clinic if your wound reopens or a new wound appears at [phone] [facility] Progress Noteon 04-09-2024 Progress Note Assessments Nursing Assessment/Reassessment Score (check box all that apply) Reassessment of Co-morbidities (includes updates in patient status) 10 [x] Wound and Skin Assessment/Reassessment 5 [x] Reassessment of Adherence to Treatment Plan Simple Wound Assessment / Reassessment - one wound 5 [x] Complex Wound Assessment - multiple wounds (# of: 0 ) multiply by 5 to get score 0 [] Dermatologic / Skin Assessment (not related to wound area) 10 [x] Focused Assessment Circumferential Edema Measurements - multi extremities (# of: 0) multiply by 5 to get score 0 [] Nutritional Assessment/Counseling/I ntervention 10 [] Lower Extremity Assessment (monofilament, tuning fork, pulses) 5 [] Peripheral Arterial Disease Assessment (using hand-held doppler) 10 [] Ostomy and/or Continence Assessment & Care Incontinence Assessment and Management 10 [] Ostomy Care Assessment and Management (repouching, etc) 20 [] Process Coordination of Care Simple Patient/Family Education for ongoing care 15 [x] Complex (extensive) Patient/Family Education for ongoing of care 20 [] Staff obtains Consent, Records, Test Results/Process Orders 10 [x] Staff telephones [facility], Nursing Homes/Clarify Orders 10 [] Routine Transfer to another Facility (non-emergent condition) 10 [] Routine Hospital Admission (non-emergent condition) 10 [] New Admissions/Insurance Auth/Ordering NPWT, skin substitute, etc. 15 [] Emergency Hospital Admission (emergent condition) 20 [] Simple Discharge Coordination 10 [x] Complex (extensive) Discharge Coordination 15 [] Special Needs Pediatric / Minor Patient Management 10 [] Isolation Patient Management 10 [] Hearing/Language/Visual Special Needs 15 [] Assessment of Community Assistance (transportation, discharge planning) 15 [] Additional Assistance / Altered Mentation 15 [] Support Surface Assessment (bed, cushion, seat) 15 [] Interventions Wound Cleansing/Measurement Simple Wound Cleansing - one wound 5 [x] Complex Wound Cleansing - multiple wounds (# of: 0) multiply by 5 to get score 0 [] Wound Imaging (photographs - any number of wounds) 5 [x] Wound Tracing (instead of photographs) 5 [] Simple Wound Measurements - one wound 5 [x] Complex Wound Measuremnts - multiple wounds (#of: 0) multiply by 5 to get score 0 [] Wound Dressings Small Wound Dressing - one or multiple wounds (# of: 0 ) multiply by 10 to get score 0 [] Medium Wound Dressing - one or multiple wounds (# of: 0 ) multiply by 15 to get score 0 [] Large Wound Dressing - one or multiple wounds (# of: 0) multiply by 20 to get score 0 [] Application of Medications - topical 5 [] Application of Medication - injection 10 [] Miscellaneous External Ear Exam Specimen Collection (culture, biopsies, blood, body fluids, etc) 5 [] Specimen/Culture sent or taken to lab for analysis 5 [] Patient Transfer (multiple staff/Darrin lift) 10 [] Simple Staple/Suture Removal (25 or less) 5 [] Complex Staple/Suture Removal (26 or more) 10 [] Hypo/Hyperglycemic Management 10 [] Ankle/Brachial Index (JULES) 15 [] Vital Signs 5 [x] Total Points - Use to Determine Level of Clinic Visit 85 Points Castro: Level 1 (1-35 Points) Level 2 (40-75 Points) Level 3 (80-115 Points) Level 4 (120-155 Points) Level 5 (160 or more Points) [facility] Progress Note Subjective Patient ID: Moises Madrid is a 63 y.o. male who presents for Wound Care. HPI: Patient returns office today for follow-up of lower extremity wound sites. Patient is continue to have dressing changes performed as instructed. Patient feels improvement is made and that he is healed today. Objective Physical Exam: Previous ulcer sites all appear healed today with no surrounding signs of infection noted. Assessment/Plan Patient reexamined. All previous ulcer sites are healed today with no surrounding signs of infection. Patient educated on continued importance of elevation and keeping legs from the dependent position while skin continues to strengthen and remodel. Patient is to continue to keep toes the best he can. To continue to wear appropriate shoe gear. He is to monitor closely for any new signs of ulcer formation in the future and call the wound center if noted, otherwise patient can follow-up with the wound center on an as-needed basis at this time. [facility] 29on 03-27-2024 29 Encounter addended b y: Marycarmen Corona RN on: 03/28/2024 9:26 AM Actions taken: LDA properties accepted [facility] 37on 03-27-2024 37 Return Appointment i n: 1 week - Should you experience any significant changes in your wound(s) or have any questions regarding your home care instructions please contact the wound center at [phone] If after regular business hours, please call your family doctor or local emergency room. If resident is unable to make next weeks appointment, profore lite wraps need to be removed Edema Control: Elevate legs to the level of the heart or above for 30 minutes daily and/or when sitting Additional Orders/Instructions: Follow diet per physicians instructions - such as increasing protein intake to promote wound healing. Please begin including a protein supplement/shake to patient's diet to help with wound healing Nursing Care Facility: [facility] Bilateral legs resolved-Facility closed week - Facility opened on April 08 Wound Treatment to R 2nd toe- Daily Cleanse wound with mild soap and water and pat dry. Apply Calcium Alginate to wound bed Apply dry dressing to cover the wound and secure with tape. OK to shower if wound dressing covered Apply Barrier Cream to bilateral buttocks and sacral area daily and PRN. Normal [facility] Progress Noteon 03-27-2024 Progress Note Assessments Nursing Assessment/Reassessment Score (check box all that apply) Reassessment of Co-morbidities (includes updates in patient status) 10 [x] Wound and Skin Assessment/Reassessment 5 [x] Reassessment of Adherence to Treatment Plan Simple Wound Assessment / Reassessment - one wound 5 [x] Complex Wound Assessment - multiple wounds (# of: 0 ) multiply by 5 to get score 0 [] Dermatologic / Skin Assessment (not related to wound area) 10 [x] Focused Assessment Circumferential Edema Measurements - multi extremities (# of: 0) multiply by 5 to get score 0 [] Nutritional Assessment/Counseling/I ntervention 10 [] Lower Extremity Assessment (monofilament, tuning fork, pulses) 5 [] Peripheral Arterial Disease Assessment (using hand-held doppler) 10 [] Ostomy and/or Continence Assessment & Care Incontinence Assessment and Management 10 [] Ostomy Care Assessment and Management (repouching, etc) 20 [] Process Coordination of Care Simple Patient/Family Education for ongoing care 15 [x] Complex (extensive) Patient/Family Education for ongoing of care 20 [] Staff obtains Consent, Records, Test Results/Process Orders 10 [] Staff telephones [facility], Nursing Homes/Clarify Orders 10 [x] Routine Transfer to another Facility (non-emergent condition) 10 [] Routine Hospital Admission (non-emergent condition) 10 [] New Admissions/Insurance Auth/Ordering NPWT, skin substitute, etc. 15 [] Emergency Hospital Admission (emergent condition) 20 [] Simple Discharge Coordination 10 [] Complex (extensive) Discharge Coordination 15 [] Special Needs Pediatric / Minor Patient Management 10 [] Isolation Patient Management 10 [] Hearing/Language/Visual Special Needs 15 [] Assessment of Community Assistance (transportation, discharge planning) 15 [] Additional Assistance / Altered Mentation 15 [] Support Surface Assessment (bed, cushion, seat) 15 [] Interventions Wound Cleansing/Measurement Simple Wound Cleansing - one wound 5 [x] Complex Wound Cleansing - multiple wounds (# of: 0) multiply by 5 to get score 0 [] Wound Imaging (photographs - any number of wounds) 5 [x] Wound Tracing (instead of photographs) 5 [] Simple Wound Measurements - one wound 5 [x] Complex Wound Measuremnts - multiple wounds (#of: 0) multiply by 5 to get score 0 [] Wound Dressings Small Wound Dressing - one or multiple wounds (# of: 1 ) multiply by 10 to get score 10 [x] Medium Wound Dressing - one or multiple wounds (# of: 0 ) multiply by 15 to get score 0 [] Large Wound Dressing - one or multiple wounds (# of: 0) multiply by 20 to get score 0 [] Application of Medications - topical 5 [] Application of Medication - injection 10 [] Miscellaneous External Ear Exam Specimen Collection (culture, biopsies, blood, body fluids, etc) 5 [] Specimen/Culture sent or taken to lab for analysis 5 [] Patient Transfer (multiple staff/Darrin lift) 10 [] Simple Staple/Suture Removal (25 or less) 5 [] Complex Staple/Suture Removal (26 or more) 10 [] Hypo/Hyperglycemic Management 10 [] Ankle/Brachial Index (JULES) 15 [] Vital Signs 5 [x] Total Points - Use to Determine Level of Clinic Visit 85 Points Castro: Level 1 (1-35 Points) Level 2 (40-75 Points) Level 3 (80-115 Points) Level 4 (120-155 Points) Level 5 (160 or more Points) [place] [id number] 03-20-2024 37 Return Appointment i n: 1 week - Should you experience any significant changes in your wound(s) or have any questions regarding your home care instructions please contact the wound center at [phone] If after regular business hours, please call your family doctor or local emergency room. If resident is unable to make next weeks appointment, profore lite wraps need to be removed Edema Control: Elevate legs to the level of the heart or above for 30 minutes daily and/or when sitting Additional Orders/Instructions: Follow diet per physicians instructions - such as increasing protein intake to promote wound healing. Please begin including a protein supplement/shake to patient's diet to help with wound healing Nursing Care Facility: [facility] Wound Treatment to R 2nd toe- Daily Cleanse wound with mild soap and water and pat dry. Apply Calcium Alginate to wound bed Apply dry dressing to cover the wound and secure with tape. Treatment to RLE: Weekly (for prevention) Cleanse wound with mild soap and water and pat dry. Apply moisturizing lotion Apply Profore lite Do not get wet. Treatment to LLE: weekly Cleanse wound with mild soap and water and pat dry. Apply Calcium Alginate to wound bed Apply Profore lite OK to shower if wound dressing covered Apply Barrier Cream to bilateral buttocks and sacral area daily and PRN. [address] 03-13-2024 37 Return Appointment i n: 1 week - Should you experience any significant changes in your wound(s) or have any questions regarding your home care instructions please contact the wound center at [phone] If after regular business hours, please call your family doctor or local emergency room. Edema Control: Elevate legs to the level of the heart or above for 30 minutes daily and/or when sitting Additional Orders/Instructions: Follow diet per physicians instructions - such as increasing protein intake to promote wound healing. Please begin including a protein supplement/shake to patient's diet to help with wound healing Nursing Care Facility: [facility] Wound Treatment to R toes- Daily Cleanse wound with mild soap and water and pat dry. Apply Calcium Alginate to wound bed Apply dry dressing to cover the wound and secure with tape. Treatment to RLE: Weekly (for prevention) Cleanse wound with mild soap and water and pat dry. Apply moisturizing lotion Apply Profore lite Do not get wet. Treatment to LLE: weekly Cleanse wound with mild soap and water and pat dry. Apply Calcium Alginate to wound bed Apply Profore lite OK to shower if wound dressing covered Apply Barrier Cream to bilateral buttocks and sacral area daily and PRN. Normal [facility] Albumin to globulin ratioOrd ered By: Demetrius Fenton on 03-13-2024 Albumin/Globulin [Mass ratio] 1.1 {ratio} 0.9-2.4 [facility] Bilirubin, totalOrdered By: Demetrius Fenton on 03-13-2024 Bilirubin [Mass/Vol] 1.10 mg/dL High 0.20-1.00 [facility] Comment on above: For patients on eltr ombopag therapy, use of Dimension Moose TBIL is not recommended. Blood urea nitrogen (BUN)/cr eatinine ratioOrdered By: Demetrius Fenton on 03-13-2024 Urea nitrogen/Creatinine [Mass ratio] 16.0 mg/mg 10-20 [facility] CBC-Complete Blood Cnt No Di ffon 03-13-2024 Erythrocyte distribution width (RBC) [Ratio] 13.2 % Normal 11.6-14.6 [facility] Comment on above: Performed By: #### L 500.4050, L501.9985, L500.4100, L100.0500 #### [facility] [address] [place], [address] Hematocrit (Bld) [Volume fraction] 44.4 % Normal 40-54 [facility] Comment on above: Performed By: #### L 500.4050, L501.9985, L500.4100, L100.0500 #### [facility] [address] [place], [address] Hemoglobin (Bld) [Mass/Vol] 15.2 g/dL Normal 13.0-16.5 [facility] Comment on above: Performed By: #### L 500.4050, L501.9985, L500.4100, L100.0500 #### [facility] [address] [place], [address] MCH (RBC) [Entitic mass] 31.0 pg Normal 27.0-32.0 [facility] Comment on above: Performed By: #### L 500.4050, L501.9985, L500.4100, L100.0500 #### [facility] [address] [place], [address] MCHC (RBC) [Mass/Vol] 34.2 g/dL Normal 32-36 [facility] Comment on above: Performed By: #### L 500.4050, L501.9985, L500.4100, L100.0500 #### [facility] [address] [place], [address] MCV (RBC) [Entitic vol] 90.4 fL Normal 80-94 [facility] Comment on above: Performed By: #### L 500.4050, L501.9985, L500.4100, L100.0500 #### [facility] [address] [place], [address] Platelet mean volume (Bld) [Entitic vol] 10.8 fL Normal 6.2-12.0 [facility] Comment on above: Performed By: #### L 500.4050, L501.9985, L500.4100, L100.0500 #### [facility] [address] [place], [address] Platelets (Bld) [#/Vol] 149 10*3/uL Low 150-450 [facility] Comment on above: Performed By: #### L 500.4050, L501.9985, L500.4100, L100.0500 #### [facility] [address] [place], [address] RBC (Bld) [#/Vol] 4.91 10*6/uL Normal 4.6-6.2 [facility] Comment on above: Performed By: #### L 500.4050, L501.9985, L500.4100, L100.0500 #### [facility] [address] [place], [address] RDW SD 42.7 fl Normal 35.1-43.9 [facility] Comment on above: Performed By: #### L 500.4050, L501.9985, L500.4100, L100.0500 #### [facility] [address] [place], [address] WBC (Bld) [#/Vol] 8.1 10*3/uL Normal 4.4-11.0 [facility] Comment on above: Performed By: #### L 500.4050, L501.9985, L500.4100, L100.0500 #### [facility] [address] [place], [address] Carbon dioxide measurementOr dered By: Demetrius Fenton on 03-13-2024 CO2 [Moles/Vol] 26.0 mmol/L 21.0-32.0 [facility] Chloride measurementOrdered By: Demetrius Fenton on 03-13-2024 Chloride [Moles/Vol] 104 mmol/L 98-107 [facility] Comprehensive Metabolic Prof ilon 03-13-2024 Albumin [Mass/Vol] 3.5 g/dL Normal 3.2-5.0 [facility] Comment on above: Performed By: #### L 500.4050, L501.9985, L500.4100, L100.0500 #### [facility] [address] [place], [address] Albumin/Globulin [Mass ratio] 1.1 {ratio} Normal 0.9-2.4 [facility] Comment on above: Performed By: #### L 500.4050, L501.9985, L500.4100, L100.0500 #### [facility] [address] [place], [address] ALK P 65 U/L Normal 45-117 [facility] Comment on above: Performed By: #### L 500.4050, L501.9985, L500.4100, L100.0500 #### [facility] [address] [place], [address] ALT [Catalytic activity/Vol] 53 U/L Normal 16-61 [facility] Comment on above: Performed By: #### L 500.4050, L501.9985, L500.4100, L100.0500 #### [facility] [address] [place], [address] AST [Catalytic activity/Vol] 37 U/L Normal 15-37 [facility] Comment on above: Result Comment: Slig ht Hemolysis, Result may be falsely increased. Performed By: #### L 500.4050, L501.9985, L500.4100, L100.0500 #### [facility] [address] [place], [address] Bilirubin [Mass/Vol] 1.10 mg/dL High 0.20-1.00 [facility] Comment on above: Result Comment: For patients on eltrombopag therapy, use of Dimension Moose TBIL is not recommended. Performed By: #### L 500.4050, L501.9985, L500.4100, L100.0500 #### [facility] [address] [place], [address] BUN/CRE 16.0 RATIO Normal 10-20 [facility] Comment on above: Performed By: #### L 500.4050, L501.9985, L500.4100, L100.0500 #### [facility] [address] [place], [address] CA,Total 9.1 mg/dL Normal 8.5-10.1 [facility] Comment on above: Performed By: #### L 500.4050, L501.9985, L500.4100, L100.0500 #### [facility] [address] [place], [address] Chloride [Moles/Vol] 104 mmol/L Normal 98-107 [facility] Comment on above: Performed By: #### L 500.4050, L501.9985, L500.4100, L100.0500 #### [facility] [address] [place], [address] CO2 [Moles/Vol] 26.0 mmol/L Normal 21.0-32.0 [facility] Comment on above: Performed By: #### L 500.4050, L501.9985, L500.4100, L100.0500 #### [facility] [address] [place], [address] Creatinine [Mass/Vol] 1.06 mg/dL Normal 0.70-1.30 [facility] Comment on above: Result Comment: The validity of the calculated GFR GFRAA in patients over 70 years has not been determined. Clinical correlation is essential. Performed By: #### L 500.4050, L501.9985, L500.4100, L100.0500 #### [facility] [address] [place], [address] EST GFR - AA 91 mL/min Normal >60 [facility] Comment on above: Result Comment: Afri can [place] GFR Calc Performed By: #### L 500.4050, L501.9985, L500.4100, L100.0500 #### [facility] [address] [place], [address] GAP 7 Normal 5-15 [facility] Comment on above: Performed By: #### L 500.4050, L501.9985, L500.4100, L100.0500 #### [facility] [address] [place], [address] GFR/1.73 sq M.predicted among non-blacks MDRD (S/P/Bld) [Vol rate/Area] 75 mL/min/{1.73_m2} Normal >60 [facility] Comment on above: Result Comment: Non- GFR Calc Performed By: #### L 500.4050, L501.9985, L500.4100, L100.0500 #### [facility] [address] [place], [address] Globulin (S) [Mass/Vol] 3.2 g/dL Normal 2.2-4.2 [facility] Comment on above: Performed By: #### L 500.4050, L501.9985, L500.4100, L100.0500 #### [facility] [address] [place], [address] Glucose [Mass/Vol] 107 mg/dL High 74-106 [facility] Comment on above: Result Comment: Fast ing Glucose result from 100 to 125 mg/dL suggests IMPAIRED HOMEOSTASIS per A.D.A. criteria. Performed By: #### L 500.4050, L501.9985, L500.4100, L100.0500 #### [facility] [address] [place], [address] Potassium [Moles/Vol] 4.7 mmol/L Normal 3.5-5.1 [facility] Comment on above: Result Comment: Slig ht Hemolysis, Result may be falsely increased. Performed By: #### L 500.4050, L501.9985, L500.4100, L100.0500 #### [facility] [address] [place], [address] Sodium [Moles/Vol] 137 mmol/L Normal 136-145 [facility] Comment on above: Performed By: #### L 500.4050, L501.9985, L500.4100, L100.0500 #### [facility] [address] [place], [address] T PROT 6.7 g/dL Normal 6.4-8.2 [facility] Comment on above: Performed By: #### L 500.4050, L501.9985, L500.4100, L100.0500 #### [facility] [address] [place], [address] Urea nitrogen [Mass/Vol] 17 mg/dL Normal 7-18 [facility] Comment on above: Performed By: #### L 500.4050, L501.9985, L500.4100, L100.0500 #### [facility] [address] [place], [address] Erythrocyte distribution wid th ratioOrdered By: Demetrius Fenton on 03-13-2024 Erythrocyte distribution width (RBC) [Ratio] 13.2 % 11.6-14.6 [facility] Erythrocyte distribution wid th standard deviationOrdered By: Demetrius Fenton on 03-13-2024 Erythrocyte distribution width (RBC) [Entitic vol] 42.7 fL 35.1-43.9 [facility] Estimated glomerular filtrat ion rate (GFR) AmericanOrdered By: Demetrius Fenton on 03-13-2024 Estimated GFR (MDRD) Amer 91 mL/min >60 [facility] Comment on above: GFR Calc Glomerular filtration rate ( GFR) estimationOrdered By: Demetrius Fenton on 03-13-2024 Estimated GFR (MDRD) Non-Af Amer 75 mL/min >60 [facility] Comment on above: Non- GFR Calc Glucose measurementOrdered B y: Demetrius Fenton on 03-13-2024 Glucose [Mass/Vol] 107 mg/dL High 74-106 [facility] Comment on above: Fasting Glucose resu lt from 100 to 125 mg/dL suggests IMPAIRED HOMEOSTASIS per A.D.A. criteria. Hematocrit Auto (Bld) [Volum e fraction]Ordered By: Demetrius Fenton on 03-13-2024 Hematocrit (Bld) [Volume fraction] 44.4 % 40-54 [facility] Hemoglobin A1con 03-13-2024 HbA1c (Bld) [Mass fraction] 6.2 % High 3.8-5.6 [facility] Comment on above: Result Comment: Norm al < 5.7 % Prediabetic 5.7 - 6.4 % Diabetic >or= 6.5 % Please note range changes. Performed By: #### L 500.4050, L501.9985, L500.4100, L100.0500 #### [facility] [address] [place], [place], [id number] Hemoglobin A1c percentageOrd ered By: Demetrius Fenton on 03-13-2024 HbA1c (Bld) [Mass fraction] 6.2 % High 3.8-5.6 [facility] Comment on above: Normal < 5.7 % Predi abetic 5.7 - 6.4 % Diabetic >or= 6.5 % Please note range changes. Hemoglobin measurementOrdere d By: Demetrius Fenton on 03-13-2024 Hemoglobin (Bld) [Mass/Vol] 15.2 g/dL 13.0-16.5 [facility] High density lipoprotein (HD L) measurementOrdered By: Demetrius Fenton on 03-13-2024 Cholesterol in HDL [Mass/Vol] 41 mg/dL >40 [facility] Comment on above: The drugs N-Acetylcy steine and Metamizole may falsely depress this assay. Reference Range HDL <40 mg/dL Low HDL Cholesterol HDL >or= 60 mg/dL High HDL Cholesterol Laboratory - Chemistry and C hemistry - challengeOrdered By: Demetrius Fenton on 03-13-2024 AST [Catalytic activity/Vol] 37 U/L 15-37 [facility] Comment on above: Slight Hemolysis, Re sult may be falsely increased. Lipid Profileon 03-13-2024 Cholesterol [Mass/Vol] 112 mg/dL Normal 200 [facility] Comment on above: Result Comment: <200 mg/dL Desirable 200-240 mg/dL Borderline >240 mg/dL High Risk Performed By: #### L 500.4050, L501.9985, L500.4100, L100.0500 #### [facility] [address] [place], [address] Cholesterol in HDL [Mass/Vol] 41 mg/dL Normal [facility] Comment on above: Result Comment: The drugs N-Acetylcysteine and Metamizole may falsely depress this assay. Reference Range HDL <40 mg/dL Low HDL Cholesterol HDL >or= 60 mg/dL High HDL Cholesterol Performed By: #### L 500.4050, L501.9985, L500.4100, L100.0500 #### [facility] [address] [place], [address] Cholesterol in LDL [Mass/Vol] 51 mg/dL Normal 0-130 [facility] Comment on above: Performed By: #### L 500.4050, L501.9985, L500.4100, L100.0500 #### [facility] [address] [place], [address] Cholesterol in VLDL [Mass/Vol] 20 mg/dL Normal 5-40 [facility] Comment on above: Performed By: #### L 500.4050, L501.9985, L500.4100, L100.0500 #### [facility] [address] [place], [address] Triglyceride [Mass/Vol] 101 mg/dL Normal [facility] Comment on above: Result Comment: The drugs N-Acetylcysteine and Metamizole may falsely depress this assay. Serum Triglycerides Reference Interval Normal <150 mg/dL Borderline high 150 - 199 mg/dL High 200 - 499 mg/dL Very High > or = 500 mg/dL Performed By: #### L 500.4050, L501.9954, L500.4100, L100.0500 #### [facility] [address] [place], [address] Low density lipoprotein (LDL ) cholesterol measurementOrdered By: Demetrius Fenton on 03-13-2024 Cholesterol in LDL [Mass/Vol] 51 mg/dL 0-130 [facility] MCV (mean corpuscular volume ) determinationOrdered By: Demetrius Fenton on 03-13-2024 MCV (RBC) [Entitic vol] 90.4 fL 80-94 [facility] Mean corpuscular hemoglobin (MCH) determinationOrdered By: Demetrius Fenton on 03-13-2024 MCH (RBC) [Entitic mass] 31.0 pg 27.0-32.0 [facility] Mean corpuscular hemoglobin concentration (MCHC) determinationOrdered By: Demetrius Fenton on 03-13-2024 MCHC (RBC) [Mass/Vol] 34.2 g/dL 32-36 [facility] Mean platelet volume determi nationOrdered By: Demetrius Fenton on 03-13-2024 Platelet mean volume (Bld) [Entitic vol] 10.8 fL 6.2-12.0 [facility] Platelet countOrdered By: Travis Finch on 03-13-2024 Platelets (Bld) [#/Vol] 149 10*3/uL Low 150-450 [facility] Potassium measurementOrdered By: Demetrius Fenton on 03-13-2024 Potassium [Moles/Vol] 4.7 mmol/L 3.5-5.1 [facility] Comment on above: Slight Hemolysis, Re sult may be falsely increased. RBC Auto (Bld) [#/Vol]Ordere d By: Demetrius Fenton on 03-13-2024 RBC (Bld) [#/Vol] 4.91 10*6/uL 4.6-6.2 [facility] Serum anion gap measurementO rdered By: Demetrius Fenton on 03-13-2024 Anion gap [Moles/Vol] 7 mmol/L 5-15 [facility] Serum globulin measurementOr dered By: Demetrius Fenton on 03-13-2024 Globulin (S) [Mass/Vol] 3.2 g/dL 2.2-4.2 [facility] Serum or plasma alanine joy otransferase (ALT) measurementOrdered By: Demetrius Fenton on 03-13-2024 ALT [Catalytic activity/Vol] 53 U/L 16-61 [facility] Serum or plasma albumin roseanne urement (mass/volume)Ordered By: Demetrius Fenton on 03-13-2024 Albumin [Mass/Vol] 3.5 g/dL 3.2-5.0 [facility] Serum or plasma alkaline elsie sphatase measurementOrdered By: Demetrius Fenton on 03-13-2024 ALP [Catalytic activity/Vol] 65 U/L 45-117 [facility] Serum or plasma calcium roseanne urement (mass/volume)Ordered By: Demetrius Fenton on 03-13-2024 Calcium [Mass/Vol] 9.1 mg/dL 8.5-10.1 [facility] Serum or plasma cholesterol measurement (mass/volume)Ordered By: Demetrius Fenton on 03-13-2024 Cholesterol [Mass/Vol] 112 mg/dL <200 [facility] Comment on above: <200 mg/dL Desirable 200-240 mg/dL Borderline >240 mg/dL High Risk Serum or plasma creatinine m easurement (mass/volume)Ordered By: Demetrius Fenton on 03-13-2024 Creatinine [Mass/Vol] 1.06 mg/dL 0.70-1.30 [facility] Comment on above: The validity of the calculated GFR & GFRAA in patients over 70 years has not been determined. Clinical correlation is essential. Serum or plasma urea nitroge n measurement (mass/volume)Ordered By: Demetrius Fenton on 03-13-2024 Urea nitrogen [Mass/Vol] 17 mg/dL 7-18 [facility] Sodium levelOrdered By: Angel Fenton on 03-13-2024 Sodium [Moles/Vol] 137 mmol/L 136-145 [facility] Total proteinOrdered By: Miriam Fenton on 03-13-2024 Protein [Mass/Vol] 6.7 g/dL 6.4-8.2 [facility] Triglycerides measurementOrd ered By: Demetrius Fenton on 03-13-2024 Triglyceride [Mass/Vol] 101 mg/dL <199 [facility] Comment on above: The drugs N-Acetylcy steine and Metamizole may falsely depress this assay.Serum Triglycerides Reference Interval Normal <150 mg/dL Borderline high 150 - 199 mg/dL High 200 - 499 mg/dL Very High > or = 500 mg/dL Very low density lipoprotein (VLDL) cholesterol measurementOrdered By: Demetrius Fenton on 03-13-2024 VLDL Cholesterol 20 mg/dL 5-40 [facility] White blood cell (WBC) count Ordered By: Demetrius Fenton on 03-13-2024 WBC (Bld) [#/Vol] 8.1 10*3/uL 4.4-11.0 [facility] 37on 03-06-2024 37 Return Appointment i n: 1 week - Should you experience any significant changes in your wound(s) or have any questions regarding your home care instructions please contact the wound center at [phone] If after regular business hours, please call your family doctor or local emergency room. Edema Control: Elevate legs to the level of the heart or above for 30 minutes daily and/or when sitting Additional Orders/Instructions: Follow diet per physicians instructions - such as increasing protein intake to promote wound healing. Please begin including a protein supplement/shake to patient's diet to help with wound healing Nursing Care Facility: [facility] Wound Treatment to R toes- Daily Cleanse wound with mild soap and water and pat dry. Apply Calcium Alginate to wound bed Apply dry dressing to cover the wound and secure with tape. Treatment to RLE: Weekly (for prevention) Cleanse wound with mild soap and water and pat dry. Apply moisturizing lotion Apply Calcium Alginate to wound beds gauze Apply Profore lite Do not get wet. Treatment to LLE: weekly Cleanse wound with mild soap and water and pat dry. Apply Calcium Alginate to wound bed Apply Profore lite OK to shower if wound dressing covered Apply Barrier Cream to bilateral buttocks and sacral area daily and PRN. [facility] 37on 02-28-2024 37 Return Appointment i n: 1 week - Should you experience any significant changes in your wound(s) or have any questions regarding your home care instructions please contact the wound center at [phone] If after regular business hours, please call your family doctor or local emergency room. Edema Control: Elevate legs to the level of the heart or above for 30 minutes daily and/or when sitting Additional Orders/Instructions: Follow diet per physicians instructions - such as increasing protein intake to promote wound healing. Please begin including a protein supplement/shake to patient's diet to help with wound healing RLE is resolved, Profore lite applied for prevention. Nursing Care Facility: [facility] Wound Treatment to R toes- Daily Cleanse wound with mild soap and water and pat dry. Apply Calcium Alginate to wound bed Apply dry dressing to cover the wound and secure with tape. Treatment to RLE: Weekly (for prevention) Cleanse wound with mild soap and water and pat dry. Apply moisturizing lotion Apply Surepress Do not get wet. Treatment to LLE: weekly Cleanse wound with mild soap and water and pat dry. Apply Calcium Alginate to wound bed Apply Profore lite OK to shower if wound dressing covered Apply Barrier Cream to bilateral buttocks and sacral area daily and PRN. [facility] No Panel Informationon 02-27 Julissa Taylor DO 02/28/2024 1:11 PM Debridement Wound/Incision 02/21/24 Venous Ulcer Pretibial Left Performed by: Julissa Taylor DO Authorized by: Julissa Taylor, DO Consent Consent obtained? verbal Consent given by: patient Risks discussed? procedural risks discussed Immediately prior to the procedure a time out was called and the performing provider verified the correct patient, procedure, equipment, cell support operator, and site/side marked as required. Debridement Details Performed by: physician Debridement type: surgical Level of debridement: subcutaneous tissue Pain control: lidocaine 2% Pain control administration type: topical Pre-debridement measurements Length (cm): 1.8 Width (cm): 1.6 Depth (cm): 0.1 Surface Area (cm^2): 2.88 Post-debridement measurements Length (cm): 2 Width (cm): 1.6 Depth (cm): 0.1 Percent debrided: 100% Surface Area (cm^2): 3.2 Area Debrided (cm^2): 3.2 Volume (cm^3): 0.32 Tissue and other material debrided: dermis, epidermis and subcutaneous tissue Devitalized tissue debrided: biofilm and slough Instrument(s) utilized: curette Bleeding: small Hemostasis obtained with: pressure Procedural pain (0-10): 2 Post-procedural pain: 0 Response to treatment: procedure was tolerated well [employer] UG 37on 02-21-2024 37 Return Appointment i n: 1 week - Should you experience any significant changes in your wound(s) or have any questions regarding your home care instructions please contact the wound center at [phone] If after regular business hours, please call your family doctor or local emergency room. Edema Control: Elevate legs to the level of the heart or above for 30 minutes daily and/or when sitting Additional Orders/Instructions: Follow diet per physicians instructions - such as increasing protein intake to promote wound healing. Please begin including a protein supplement/shake to patient's diet to help with wound healing RLE is resolved, Profore lite applied for prevention. Nursing Care Facility: [facility] Wound Treatment to R toes- Daily Cleanse wound with mild soap and water and pat dry. Apply moistened collagen to wound bed. Apply Calcium Alginate Apply dry dressing to cover the wound and secure with tape. Treatment to RLE: Weekly Cleanse wound with mild soap and water and pat dry. Apply moisturizing lotion Apply Profore light Do not get wet. Treatment to LLE: weekly Cleanse wound with mild soap and water and pat dry. Apply Calcium Alginate to wound bed Apply Profore lite OK to shower if wound dressing covered Apply Barrier Cream to bilateral buttocks and sacral area daily and PRN. Normal [facility] CBC W Auto Differential pane l (Bld)on 02-18-2024 Basophils (Bld) [#/Vol] 0.1 10*3/uL 0.0 - 0.2 10*3/uL [employer] Basophils/100 WBC (Bld) 0.8 % 0.0 - 2.0 % [employer] Eosinophils (Bld) [#/Vol] 0.2 10*3/uL 0.0 - 0.5 10*3/uL [employer] Eosinophils/100 WBC (Bld) 2.8 % 0.0 - 6.0 % [employer] Erythrocyte distribution width (RBC) [Ratio] 13.2 % 11.5 - 15.0 % [facility] Hematocrit (Bld) [Volume fraction] 49.2 % 40.0 - 52.0 % [facility] Hemoglobin (Bld) [Mass/Vol] 16.9 g/dL 13.0 - 18.0 g/dL [facility] [employer] Immature granulocytes (Bld) [#/Vol] 0.1 10*3/uL High NINF - 0.1 10*3/uL [facility] [employer] Immature granulocytes/100 WBC (Bld) 0.6 % 0.0 - 2.0 % [facility] Interpretation and review of laboratory results Abnormal [facility] IPF 4 [facility] Lymphocytes (Bld) [#/Vol] 2.7 10*3/uL 1.0 - 4.3 10*3/uL [facility] Lymphocytes/100 WBC (Bld) 35 % 15.0 - 45.0 % [facility] MCH (RBC) [Entitic mass] 31 pg 26.0 - 34.0 pg [facility] MCHC (RBC) [Mass/Vol] 34.3 % 30.5 - 36.0 % [facility] MCV (RBC) [Entitic vol] 90.1 fL 77.0 - 99.0 fL [facility] [employer] Monocytes (Bld) [#/Vol] 0.6 10*3/uL 0.0 - 0.9 10*3/uL [facility] Monocytes/100 WBC (Bld) 7.6 % 5.0 - 13.0 % [facility] Neutrophils (Bld) [#/Vol] 4.1 10*3/uL 1.8 - 7.5 10*3/uL [facility] Neutrophils/100 WBC (Bld) 53.2 % 38.0 - 82.0 % [facility] Nucleated RBC/100 WBC (Bld) [Ratio] 0 % [facility] [employer] Platelet mean volume (Bld) [Entitic vol] 10.9 fL 9.0 - 12.7 fL [facility] [employer] Platelets (Bld) [#/Vol] 133 10*3/uL Low 140 - 440 10*3/uL [facility] RBC (Bld) [#/Vol] 5.46 10*6/uL 4.40 - 5.9 0 10*6/uL [facility] WBC (Bld) [#/Vol] 7.8 10*3/uL 3.6 - 10.7 10*3/uL [facility] CBC WITH AUTO DIFFERENTIALon 02-18-2024 Basophils (Bld) [#/Vol] 0.1 10*3/uL Normal 0.0-0.2 [facility] Comment on above: Performed By: #### L [id number] #### Take Off Man: SHARLA FINNEY ([phone]) [facility] ([facility]) [address] [place] [address] [place] Basophils/100 WBC (Bld) 0.8 % Normal 0.0-2.0 [facility] Comment on above: Performed By: #### L [id number] #### Take Off Man: SHARLA FINNEY ([phone]) [facility] ([facility]) [address] [place] [address] Eosinophils (Bld) [#/Vol] 0.2 10*3/uL Normal 0.0-0.5 [facility] Comment on above: Performed By: #### L [id number] #### Take Off Man: SHARLA FINNEY ([id number]) [facility] ([facility]) [address] [place] [address] Eosinophils/100 WBC (Bld) 2.8 % Normal 0.0-6.0 [facility] Comment on above: Performed By: #### L [id number] #### Take Off Man: SHARLA FINNEY ([id number]) [facility] ([facility]) [address] [place] [address] Erythrocyte distribution width (RBC) [Ratio] 13.2 % Normal 11.5-15.0 [facility] Comment on above: Performed By: #### L [id number] #### Take Off Man: SHARLA FINNEY ([id number]) [facility] ([facility]) [address] [place] [address] Hematocrit (Bld) [Volume fraction] 49.2 % Normal 40.0-52.0 [facility] Comment on above: Performed By: #### L [id number] #### Take Off Man: SHARLA FINNEY ([id number]) [facility] ([facility]) [address] [place] [address] [place] Hemoglobin (Bld) [Mass/Vol] 16.9 g/dL Normal 13.0-18.0 [facility] Comment on above: Performed By: #### L [id number] #### Take Off Man: SHARLA FINNEY ([id number]) [facility] ([facility]) [address] [place] [address] IMMATURE GRANS % 0.6 % Normal 0.0-2.0 [facility] Comment on above: Performed By: #### L [id number] #### Take Off Man: SHARLA FINNEY ([id number]) [facility] ([facility]) [address] [place] [address] IMMATURE GRANS ABSOLUTE 0.1 10*3/uL High <0.1 [facility] Comment on above: Performed By: #### L [id number] #### Take Off Man: SHARLA FINNEY ([id number]) [facility] ([facility]) [address] [place] [address] [place] IPF 4 Normal [facility] Comment on above: Performed By: #### L [id number] #### Take Off Man: SHARLA FINNEY ([id number]) [facility] ([facility]) [address] [place] [address] Lymphocytes (Bld) [#/Vol] 2.7 10*3/uL Normal 1.0-4.3 [facility] Comment on above: Performed By: #### L [id number] #### Take Off Man: SHARLA FINNEY ([id number]) [facility] ([facility]) [address] [place] [address] [place] Lymphocytes/100 WBC (Bld) 35.0 % Normal 15.0-45.0 [facility] Comment on above: Performed By: #### L [id number] #### Take Off Man: SHARLA FINNEY ([id number]) [facility]) [address] [place] [address] MCH (RBC) [Entitic mass] 31.0 pg Normal 26.0-34.0 [facility] Comment on above: Performed By: #### L [id number] #### Take Off Man: SHARLA FINNEY ([id number]) [facility] [address] [place] [address] MCHC 34.3 % Normal 30.5-36.0 [facility] Comment on above: Performed By: #### L [id number] #### Take Off Man: SHARLA FINNEY ([id number]) [facility] ([facility]) [address] [place] [address] MCV (RBC) [Entitic vol] 90.1 fL Normal 77.0-99.0 [facility] Comment on above: Performed By: #### L [id number] #### Take Off Man: SHARLA FINNEY ([id number]) [facility] ([facility]) [address] [place] [address] Monocytes (Bld) [#/Vol] 0.6 10*3/uL Normal 0.0-0.9 [facility] Comment on above: Performed By: #### L [id number] #### Take Off Man: SHARLA FINNEY ([id number]) [facility] ([facility]) [address] [place] [address] [place] Monocytes/100 WBC (Bld) 7.6 % Normal 5.0-13.0 [facility] Comment on above: Performed By: #### L [id number] #### Take Off Man: SHARLA FINNEY ([id number]) [facility] ([facility]) [address] [place] [address] NEUTROPHILS ABSOLUTE 4.1 10*3/uL Normal 1.8-7.5 [facility] Comment on above: Performed By: #### L [id number] #### Take Off Man: SHARLA FINNEY ([id number]) [facility] ([facility]) [address] [place] [address] [place] Neutrophils/100 WBC (Bld) 53.2 % Normal 38.0-82.0 [facility] Comment on above: Performed By: #### L [id number] #### Take Off Man: SHARLA FINNEY ([id number]) [facility] ([facility]) [address] [place] [address] NRBC 0.0 /100 WBCs Normal 0.0-2.0 [facility] Comment on above: Performed By: #### L [id number] #### Take Off Man: SHARLA FINNEY ([phone]) [facility]) [address] [place] [address] Platelet mean volume (Bld) [Entitic vol] 10.9 fL Normal 9.0-12.7 [facility] Comment on above: Performed By: #### L [id number] #### Take Off Man: SHARLA FINNEY ([id number]) [facility] ([facility]) [address] [place] [address] Platelets (Bld) [#/Vol] 133 10*3/uL Low 140-440 [facility] Comment on above: Performed By: #### L [id number] #### Take Off Man: SHARLA FINNEY ([id number]) [facility]) [address] [place] [address] RBC (Bld) [#/Vol] 5.46 10*6/uL Normal 4.40-5.90 [facility] Comment on above: Performed By: #### L [id number] #### Take Off Man: SHARLA FINNEY ([id number]) [facility]) [address] [place] [address] WBC (Bld) [#/Vol] 7.8 10*3/uL Normal 3.6-10.7 [facility] Comment on above: Performed By: #### L [id number] #### Take Off Man: SHARLA FINNEY ([id number]) [facility]) [address] [place] [address] COMPREHENSIVE METABOLIC PANE Micah 02-18-2024 Albumin [Mass/Vol] 4.7 g/dL Normal 3.5-5.0 [facility] Comment on above: Performed By: #### L [id number] #### Take Off Man: SHARLA FINNEY ([id number]) [facility]) [address] [place] [address] ALP [Catalytic activity/Vol] 68 U/L Normal 38-126 [facility] Comment on above: Performed By: #### L [id number] #### Take Off Man: SHARLA FINNEY ([id number]) [facility] [address] [place] [address] [place] ALT [Catalytic activity/Vol] 52 U/L High 0-49 [facility] Comment on above: Performed By: #### L [id number] #### Take Off Man: SHARLA FINNEY ([id number]) [facility] [address] [place] [address] Anion gap [Moles/Vol] 6 mmol/L Normal 3-13 [facility] Comment on above: Performed By: #### L [id number] #### Take Off Man: SHARLA FINNEY ([id number]) [facility] ([facility]) [address] [place] [address] AST [Catalytic activity/Vol] 48 U/L High 15-46 [facility] Comment on above: Performed By: #### L [id number] #### Take Off Man: SHARLA FINNEY ([id number]) [facility] ([facility]) [address] [place] [address] [place] Bilirubin [Mass/Vol] 1.4 mg/dL High 0.2-1.3 [facility] Comment on above: Performed By: #### L [id number] #### Take Off Man: SHARLA FINNEY ([id number]) [facility] ([facility]) [address] [place] [address] [place] Calcium [Mass/Vol] 9.6 mg/dL Normal 8.4-10.4 [facility] Comment on above: Performed By: #### L [id number] #### Take Off Man: SHARLA FINNEY ([id number]) [facility] ([facility]) [address] [place] [address] [place] Chloride [Moles/Vol] 100 mmol/L Normal 98-107 [facility] Comment on above: Performed By: #### L [id number] #### Take Off Man: SHARLA FINNEY ([id number]) [facility] [address] [place] [address] [place] CO2 [Moles/Vol] 30 mmol/L Normal 22-30 [facility] Comment on above: Performed By: #### L [id number] #### Take Off Man: SHARLA FINNEY ([phone]) [facility]) [address] [place] [address] Creatinine [Mass/Vol] 0.99 mg/dL Normal 0.66-1.25 [facility] Comment on above: Performed By: #### L [id number] #### Take Off Man: SHARLA FINNEY ([id number]) [facility] ([facility]) [address] [place] [address] [place] GLOMERULAR FILTRATION RATE ML/MIN/1.73 SQ M.PREDICTED 86.7 mL/min/1.73m*2 Normal >60.0 [facility] Comment on above: Result Comment: Calc ulation based on the Chronic Kidney Disease Epidemiology Collaboration (CKD-EPI) equation refit without adjustment for race Performed By: #### L [id number] #### Take Off Man: SHARLA FINNEY ([phone]) [facility] [address] [place] [address] [place] Glucose [Mass/Vol] 104 mg/dL High 70-100 [facility] Comment on above: Performed By: #### L [id number] #### Take Off Man: SHARLA FINNEY ([phone]) [facility]) [address] [place] [address] Potassium [Moles/Vol] 4.5 mmol/L Normal 3.5-5.1 [facility] Comment on above: Performed By: #### L [id number] #### Take Off Man: SHARLA FINNEY ([id number]) [facility] [address] [place] [address] [place] Protein [Mass/Vol] 8.0 g/dL Normal 6.3-8.2 [facility] Comment on above: Performed By: #### L [id number] #### Take Off Man: SHARLA FINNEY ([id number]) [facility] ([facility]) [address] [place] [address] [place] Sodium [Moles/Vol] 135 mmol/L Normal 135-145 [facility] Comment on above: Performed By: #### L [id number] #### Take Off Man: SHARLA QUIQUESarah ([id number]) [facility] [address] [place] [address] Urea nitrogen [Mass/Vol] 18 mg/dL Normal 9-20 [facility] Comment on above: Performed By: #### L [id number] #### Take Off Man: SHARLA LEISarah ([id number]) [facility] [address] [place] [address] CT HEAD WO IV CONTRASTon CT HEAD WO IV CONTRAST Patient Name: MOISES ROSS : 1960 Exam Date/Time: 02/18/2024 01:41 Procedure: CT HEAD WO IV CONTRAST Ordering Provider: BUNCH TIMOTHY Reason For Exam: HEADACHE CT HEAD CLINICAL INDICATION: HEADACHE COMPARISON: 06/27/2019 Technique: Axial CT images were obtained from skull base to vertex. Images were reformatted in coronal and sagittal projections. 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 Intravenous contrast: None Findings: Chronic left thalamic infarct. There is no CT evidence of an acute intracranial hemorrhage, territorial infarction, midline shift, mass effect, or extra-axial collection. The villegas-white differentiation remains preserved and the basal cisterns are patent. There is diffuse cerebral and cerebellar volume loss. Ventricles are appropriate in size for the patient's age and level of parenchymal volume. No acute fractures or suspicious osseous lesions seen. Chronic complete opacification of the right maxillary sinus with neoostial wall thickening. New complete opacification of the right frontal and anterior ethmoid air cells with partial opacification of the posterior ethmoid air cells. Mild mucosal thickening of the left frontal sinus and left ethmoid air cells. IMPRESSION: No acute intracranial hemorrhage or territorial infarct. Findings suggestive of acute and chronic paranasal sinusitis. Report Dictated on Electronically Signed By: Jus Barlow DR Electronically Signed Date/Time: 02/18/2024 1:49 AM EST Table formatting from the original note was not included. Pt presents with headache, 9/10, from snf, unsure was if he was given any meds at snf, alert and oriented x3, disoriented to year, oriented to month, according to [facility] he received norco and tylenol w no relief, per snf states he has constant headache Normal [facility] CT Head WO contraston 2023 No acute intracrania l hemorrhage or territorial infarct. Findings suggestive of acute and chronic paranasal sinusitis. Report Dictated on Electronically Signed By: Jus Barlow DR Electronically Signed Date/Time: 02/18/2024 1:49 AM EST [facility] Patient Name: MOISES VERONICA : 1960 Exam Date/Time: 02/18/2024 01:41 Procedure: CT HEAD WO IV CONTRAST Ordering Provider: BUNCH TIMOTHY Reason For Exam: HEADACHE CT HEAD CLINICAL INDICATION: HEADACHE COMPARISON: 06/27/2019 Technique: Axial CT images were obtained from skull base to vertex. Images were reformatted in coronal and sagittal projections. 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 Intravenous contrast: None Findings: Chronic left thalamic infarct. There is no CT evidence of an acute intracranial hemorrhage, territorial infarction, midline shift, mass effect, or extra-axial collection. The villegas-white differentiation remains preserved and the basal cisterns are patent. There is diffuse cerebral and cerebellar volume loss. Ventricles are appropriate in size for the patient's age and level of parenchymal volume. No acute fractures or suspicious osseous lesions seen. Chronic complete opacification of the right maxillary sinus with neoostial wall thickening. New complete opacification of the right frontal and anterior ethmoid air cells with partial opacification of the posterior ethmoid air cells. Mild mucosal thickening of the left frontal sinus and left ethmoid air cells. [facility] Jus Barlow MD - 02/18/2024 Patient Name: MOISES MADRID : 1960 Exam Date/Time: 02/18/2024 01:41 Procedure: CT HEAD WO IV CONTRAST Ordering Provider: BUNCH TIMOTHY Reason For Exam: HEADACHE CT HEAD CLINICAL INDICATION: HEADACHE COMPARISON: 06/27/2019 Technique: Axial CT images were obtained from skull base to vertex. Images were reformatted in coronal and sagittal projections. 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 Intravenous contrast: None Findings: Chronic left thalamic infarct. There is no CT evidence of an acute intracranial hemorrhage, territorial infarction, midline shift, mass effect, or extra-axial collection. The villegas-white differentiation remains preserved and the basal cisterns are patent. There is diffuse cerebral and cerebellar volume loss. Ventricles are appropriate in size for the patient's age and level of parenchymal volume. No acute fractures or suspicious osseous lesions seen. Chronic complete opacification of the right maxillary sinus with neoostial wall thickening. New complete opacification of the right frontal and anterior ethmoid air cells with partial opacification of the posterior ethmoid air cells. Mild mucosal thickening of the left frontal sinus and left ethmoid air cells. IMPRESSION: No acute intracranial hemorrhage or territorial infarct. Findings suggestive of acute and chronic paranasal sinusitis. Report Dictated on Electronically Signed By: Jus Barlow DR Electronically Signed Date/Time: 02/18/2024 1:49 AM EST [facility] [employer] Radiology Study observation (narrative) [facility] alth CT Head WO contrastOrdered B y: Jus Barlow on 02-18-2024 [facility] [employer] Work Phone: Comprehensive metabolic 1998 panelon 02-18-2024 Albumin [Mass/Vol] 4.7 g/dL 3.5 - 5.0 g/dL [facility] ALP [Catalytic activity/Vol] 68 U/L 38 - 126 U/L [facility] ALT [Catalytic activity/Vol] 52 U/L High 0 - 49 U/L [facility] Anion gap [Moles/Vol] 6 mmol/L 3 - 13 mmol/L [facility] AST [Catalytic activity/Vol] 48 U/L High 15 - 46 U/L [facility] [employer] Bilirubin [Mass/Vol] 1.4 mg/dL High 0.2 - 1 .3 mg/dL [facility] Calcium [Mass/Vol] 9.6 mg/dL 8.4 - 10. 4 mg/dL [facility] [employer] Chloride [Moles/Vol] 100 mmol/L 98 - 10 7 mmol/L [facility] CO2 [Moles/Vol] 30 mmol/L 22 - 30 mmol/L [facility] Creatinine [Mass/Vol] 0.99 mg/dL 0.66 - 1.25 mg/dL [facility] GFR/1.73 sq M.predicted (S/P/Bld) [Vol rate/Area] 86.7 mL/min - PINF [facility] Comment on above: Calculation based on the Chronic Kidney Disease Epidemiology Collaboration (CKD-EPI) equation refit without adjustment for race Glucose [Mass/Vol] 104 mg/dL High 70 - 100 mg/dL [facility] Interpretation and review of laboratory results Abnormal [facility] Potassium [Moles/Vol] 4.5 mmol/L 3.5 - 5.1 mmol/L [facility] Protein [Mass/Vol] 8 g/dL 6.3 - 8.2 g/dL [facility] Sodium [Moles/Vol] 135 mmol/L 135 - 145 mmol/L [facility] Urea nitrogen [Mass/Vol] 18 mg/dL 9 - 20 mg/dL [facility] ED Nursing Noteon 02-18-2024 ED Nursing Note Aamir bernard at bedside Normal [facility] ED Nursing Note Report called to snf at this time Normal [facility] ED Nursing Note Pt presents with headache, 12/18, from snf, unsure was if he was given any meds at snf, alert and oriented x3, disoriented to year, oriented to month, according to [facility] he received norco and tylenol w no relief, per snf states he has constant headache Normal [facility] ED Provider Noteon ED Provider Note EMERGENCY DEPARTMENT ENCOUNTER Pt Name: Moises Madrid Birthdate 1960 Date of evaluation: 02/18/2024 ED Provider: Kaylee Bunch MD CHIEF COMPLAINT Chief Complaint Patient presents with Headache HISTORY OF PRESENT ILLNESS (Location/Symptom, Timing/Onset, Context/Setting, Quality, Duration, Modifying Factors, Severity) Note limiting factors. I wore appropriate PPE for the entirety of this encounter. HPI Moises Madrid is a 63 y.o. with a history of traumatic brain injury in the 1980s, chronic headaches who presents to the emergency department with chief complaint of headache that was not relieved with [place] or Tylenol this evening at the retirement facility. The retirement facility sent him to the emergency department to be evaluated for his intractable headache. Nursing Notes were reviewed. Limitations to history: Altered mental status/confusion Outside historians: [facility] REVIEW OF SYSTEMS Review of Systems Pertinent positives and negatives as per HPI. PAST MEDICAL HISTORY Past Medical History: Diagnosis Date Anxiety Ataxia Atherosclerosis Bipolar 1 disorder (HCC) Chronic migraine w/o aura, not intractable, w/o stat migr Chronic pain Chronic ulcer of left calf ([facility]) Concussion with loss of consciousness, with loc of unspecified duration, sequela ([facility]) Constipation Contracture, right hand Depression Difficulty walking Dorsopathy Dysphagia Dysphonia Edema GERD (gastroesophageal reflux disease) Headache Hemiplegia (CMS/HCC) ([facility]) affecting right dominant side History of pancreatitis 10/28/2022 Hyperlipidemia Hypertension Hypokalemia Insomnia Intracranial injury ([facility]) Lack of coordination Mixed receptive-expressive language disorder Muscle weakness Neuropathy Non-pressure chronic ulcer of other part of right foot with fat layer exposed ([facility]) Pancreatic abscess 07/14/2022 Pancreatitis PVD (peripheral vascular disease) ([facility]) Reduced mobility Repeated falls SIRS (systemic inflammatory response syndrome) ([facility]) TBI (traumatic brain injury) ([facility]) Venous insufficiency SURGICAL HISTORY Past Surgical History: Procedure Laterality Date CHOLECYSTECTOMY 10/28/2022 Zografakis; lap CRANIOTOMY TONSILLECTOMY CURRENT MEDICATIONS Previous Medications ACETAMINOPHEN (TYLENOL) 325 MG TABLET Take 650 mg by mouth every 6 hours as needed for mild pain (1-3) (elevated temp). ALBUTEROL (2.5 MG/3ML) 0.083% NEBULIZER SOLUTION Take by nebulization every 4 hours as needed for wheezing. AMITRIPTYLINE (ELAVIL) 10 MG TABLET Take 10 mg by mouth Nightly. AMMONIUM LACTATE (LAC-HYDRIN) 12 % LOTION Apply topically Nightly. To bilat. legs ARIPIPRAZOLE (ABILIFY) 5 MG TABLET Take 5 mg by mouth daily. ASPIRIN 81 MG EC TABLET Take 81 mg by mouth daily. ATORVASTATIN (LIPITOR) 40 MG TABLET Nightly. B-COMPLEX, FOLIC ACID, PO Take by mouth. BENZONATATE (TESSALON) 200 MG CAPSULE BIOTIN 10 MG TABLET Take by mouth. BISACODYL (DULCOLAX) 10 MG SUPPOSITORY Insert 10 mg into the rectum Daily as needed for constipation. BISACODYL (DULCOLAX) 5 MG EC TABLET Take 5 mg by mouth Daily as needed for constipation. Do not crush, chew, or split. CEPHALEXIN (KEFLEX) 250 MG CAPSULE CHOLECALCIFEROL (VITAMIN D3) 1.25 MG (97981 UT) TABLET Take by mouth 1 (one) time per week. Mondays CLONIDINE (CATAPRES) 0.1 MG TABLET Take 0.1 mg by mouth every 12 hours as needed for high blood pressure (SBP >180, DBP >100). DIVALPROEX SPRINKLE (DEPAKOTE SPRINKLE) [address] CAPSULE Take 2 capsules (250 mg) by mouth in the morning and 2 capsules (250 mg) before bedtime. DOCUSATE SODIUM (COLACE) 100 MG CAPSULE Take 100 mg by mouth daily. ERENUMAB-AOOE (AIMOVIG, 140 MG DOSE, SC) Inject under the skin. FAMOTIDINE (PEPCID) 20 MG TABLET Take 20 mg by mouth daily. FLUTICASONE (FLONASE) 50 MCG/ACT NASAL SPRAY Administer 2 sprays into each nostril daily. Shake gently. Before first use, prime pump. After use, clean tip and replace cap. GABAPENTIN (NEURONTIN) 300 MG CAPSULE Take 300 mg by mouth 2 times daily. GLUCOSAMINE 500 MG CAPSULE Take by mouth 2 times daily. GUAIFENESIN (MUCINEX) 600 MG 12 HR TABLET Take 1,200 mg by mouth 2 times daily. Do not crush, chew, or split. HYDROCODONE-ACETAMINOPH EN (NORCO) 5-325 MG TABLET Take 1 tablet by mouth in the morning and 1 tablet at noon and 1 tablet before bedtime. KETOCONAZOLE (NIZORAL) 2 % CREAM Apply 1 Application topically daily. Apply to brow and face LISINOPRIL 20 MG TABLET Take by mouth daily. MAGNESIUM HYDROXIDE (MILK OF MAGNESIA) 400 MG/5ML SUSPENSION Take 30 mL by mouth Nightly as needed for constipation. MELATONIN 5 MG TABLET Take 10 mg by mouth Nightly. MEMANTINE (NAMENDA) 10 MG TABLET Take 10 mg by mouth 2 times daily. METOPROLOL TARTRATE (LOPRESSOR) 25 MG TABLET Take 25 mg by mouth 2 times daily. MICONAZOLE (MICOTIN) 2 % POWDER Apply topically 2 times daily (more content not included)... Normal [facility] - Coagulationon 1 04-19-2023 aPTT Coag (PPP) [Time] 25 s 20.0 - 30.5 s [facility] INR Coag (PPP) [Relative time] 1.1 {INR} 0.9 - 1.1 [facility] Comment on above: Recommended Anticoag ulant Therapy: SEE BELOW ----- INR of 2.0 - 3.0 : - Prophylaxis of Venous Thrombosis (high-risk surgery) - Treatment of Venous Thrombosis - Treatment of Pulmonary Embolism (Includes tissue heart valves, Acute Myocardial Infarction to prevent systemic embolism, Valvular Heart Disease, and Atrial Fibrillation) ----- INR of 2.5 - 3.5 : - Mechanical Prosthetic Valves (high risk) - If oral anticoagulant therapy is used to prevent Myocardial Infarction PT Coag (Bld) [Time] 11.9 s 9.0 - 1 2.0 s [facility] No Panel Informationon 02-17 Interpretation and review of laboratory results Normal [facility] PROTIME AND APTTon aPTT Coag (Bld) [Time] 25.0 s Normal 20.0-30.5 [facility] Comment on above: Performed By: #### L [id number] ####Take Off Man: SATYA BRANNON ([id number])[address] INR Coag (PPP) [Relative time] 1.1 {INR} Normal 0.9-1.1 [facility] Comment on above: Result Comment: Saulo mmended Anticoagulant Therapy: SEE BELOW ----- INR of 2.0 - 3.0 : - Prophylaxis of Venous Thrombosis (high-risk surgery) - Treatment of Venous Thrombosis - Treatment of Pulmonary Embolism (Includes tissue heart valves, Acute Myocardial Infarction to prevent systemic embolism, Valvular Heart Disease, and Atrial Fibrillation) ----- INR of 2.5 - 3.5 : - Mechanical Prosthetic Valves (high risk) - If oral anticoagulant therapy is used to prevent Myocardial Infarction Performed By: #### L [id number] ####Take Off Man: SATYA BRANNON ([id number])[facility])[address] [place] [address] PT Coag (PPP) [Time] 11.9 s Normal 9.0-12.0 [facility] Comment on above: Performed By: #### L [id number] ####Take Off Man: SATYA BRANNON ([id number])[facility] ([facility])[address] [place] [address] 02-14-2024 29 Encounter addended b y: Marycarmen Corona RN on: 02/15/2024 9:48 AM Actions taken: Charge Capture section accepted [facility] 3702-14-2024 37 Return Appointment i n: 1 week - Should you experience any significant changes in your wound(s) or have any questions regarding your home care instructions please contact the wound center at [phone] If after regular business hours, please call your family doctor or local emergency room. Edema Control: Elevate legs to the level of the heart or above for 30 minutes daily and/or when sitting Additional Orders/Instructions: Follow diet per physicians instructions - such as increasing protein intake to promote wound healing. Please begin including a protein supplement/shake to patient's diet to help with wound healing RLE is resolved, Profore lite applied for prevention. Nursing Care Facility: [facility] Wound Treatment to R toes- Daily Cleanse wound with mild soap and water and pat dry. Apply moistened collagen to wound bed. Apply Calcium Alginate Apply dry dressing to cover the wound and secure with tape. Treatment to RLE: Weekly Cleanse wound with mild soap and water and pat dry. Apply moisturizing lotion Apply Profore light Do not get wet. OK to shower if wound dressing covered Apply Barrier Cream to bilateral buttocks and sacral area daily and PRN. Normal [facility] 02-07-2024 29 Encounter addended b y: Marycarmen Corona RN on: 02/07/2024 10:59 AM Actions taken: Charge Capture section accepted Normal [facility] 29 Encounter addended b y: Adriana Barbosa MA on: 02/07/2024 10:26 AM Actions taken: Flowsheet accepted [facility] 3702-07-2024 37 Return Appointment i n: 1 week - Should you experience any significant changes in your wound(s) or have any questions regarding your home care instructions please contact the wound center at [phone] If after regular business hours, please call your family doctor or local emergency room. Edema Control: Elevate legs to the level of the heart or above for 30 minutes daily and/or when sitting Additional Orders/Instructions: Follow diet per physicians instructions - such as increasing protein intake to promote wound healing. Please begin including a protein supplement/shake to patient's diet to help with wound healing Take antibiotic as directed Nursing Care Facility: [facility] Wound Treatment to R toes- Daily Cleanse wound with mild soap and water and pat dry. Apply Calcium Alginate Apply dry dressing to cover the wound and secure with tape. Wound Treatment to RLE: Weekly Cleanse wound with mild soap and water and pat dry. Apply Calcium Alginate Apply Profore light Do not get wet. OK to shower if wound dressing covered Apply Barrier Cream to bilateral buttocks and sacral area daily and PRN. [facility] 2901-31-2024 29 Encounter addended b y: Marycarmen Corona RN on: 02/02/2024 10:55 AM Actions taken: Charge Capture section accepted [facility] 3701-31-2024 37 Return Appointment i n: 1 week - Should you experience any significant changes in your wound(s) or have any questions regarding your home care instructions please contact the wound center at [phone] If after regular business hours, please call your family doctor or local emergency room. Edema Control: Elevate legs to the level of the heart or above for 30 minutes daily and/or when sitting Additional Orders/Instructions: Follow diet per physicians instructions - such as increasing protein intake to promote wound healing. Please begin including a protein supplement/shake to patient's diet to help with wound healing Take antibiotic as directed Nursing Care Facility: [facility] Wound Treatment to R toes- Daily Cleanse wound with mild soap and water and pat dry. Apply Calcium Alginate Apply dry dressing to cover the wound and secure with tape. Wound Treatment to RLE: Weekly Cleanse wound with mild soap and water and pat dry. Apply Calcium Alginate Apply Profore light Do not get wet. OK to shower if wound dressing covered Apply Barrier Cream to bilateral buttocks and sacral area daily and PRN. [facility] Valproic Acid (Depakene) Lev alison 01-29-2024 VALPROIC ACID 72 ug/mL Normal 50-100 [facility] Comment on above: Order Comment: 107.1 Performed By: #### L [id number], L500.4100, L100.0500 #### [facility] [address] [place], [address] 29on 01-24-2024 29 Encounter addended b y: Marycarmen Corona RN on: 01/30/2024 3:44 PM Actions taken: LDA properties accepted, Charge Capture section accepted [facility] 01-24-2024 PATI Return Appointment i n: 1 week - Should you experience any significant changes in your wound(s) or have any questions regarding your home care instructions please contact the wound center at [phone] If after regular business hours, please call your family doctor or local emergency room. Edema Control: Elevate legs to the level of the heart or above for 30 minutes daily and/or when sitting Additional Orders/Instructions: Follow diet per physicians instructions - such as increasing protein intake to promote wound healing. Please begin including a protein supplement/shake to patient's diet to help with wound healing Take antibiotic as directed Nursing Care Facility: [facility] Wound Treatment to R toes- Daily Cleanse wound with mild soap and water and pat dry. Apply Calcium Alginate Apply dry dressing to cover the wound and secure with tape. Wound Treatment to RLE: Weekly Cleanse wound with mild soap and water and pat dry. Apply Calcium Alginate Apply Profore light Do not get wet. OK to shower if wound dressing covered Apply Barrier Cream to bilateral buttocks and sacral area daily and PRN. [facility] 01-17-2024 PATINS Return Appointment i n: 1 week - Should you experience any significant changes in your wound(s) or have any questions regarding your home care instructions please contact the wound center at [phone] If after regular business hours, please call your family doctor or local emergency room. Edema Control: Elevate legs to the level of the heart or above for 30 minutes daily and/or when sitting Additional Orders/Instructions: Follow diet per physicians instructions - such as increasing protein intake to promote wound healing. Please begin including a protein supplement/shake to patient's diet to help with wound healing Take antibiotic as directed Nursing Care Facility: [facility] Wound Treatment to R toes- Daily Cleanse wound with mild soap and water and pat dry. Apply Calcium Alginate Apply dry dressing to cover the wound and secure with tape. Wound Treatment to RLE: Weekly Cleanse wound with mild soap and water and pat dry. Apply Calcium Alginate Apply Profore light Do not get wet. OK to shower if wound dressing covered Apply Barrier Cream to bilateral buttocks and sacral area daily and PRN. Normal [facility] PATINSon 01-10-2024 PATINS Return Appointment i n: 1 week - Should you experience any significant changes in your wound(s) or have any questions regarding your home care instructions please contact the wound center at [phone] If after regular business hours, please call your family doctor or local emergency room. Edema Control: Elevate legs to the level of the heart or above for 30 minutes daily and/or when sitting Additional Orders/Instructions: Follow diet per physicians instructions - such as increasing protein intake to promote wound healing. Please begin including a protein supplement/shake to patient's diet to help with wound healing Take antibiotic as directed Nursing Care Facility: [facility] Wound Treatment to R toes- Daily Cleanse wound with mild soap and water and pat dry. Apply Calcium Alginate Apply dry dressing to cover the wound and secure with tape. Wound Treatment to RLE: Weekly Cleanse wound with mild soap and water and pat dry. Apply Calcium Alginate Apply Profore light Do not get wet. OK to shower if wound dressing covered Apply Barrier Cream to bilateral buttocks and sacral area daily and PRN. Normal [facility] CBC-Complete Blood Cnt No Di ffon 01-09-2024 Erythrocyte distribution width (RBC) [Ratio] 13.2 % Normal 11.6-14.6 [facility] Comment on above: Order Comment: 107.1 Performed By: #### L [id number], L500.4100, L100.0500 #### [facility] [address] [place], [address] Hematocrit (Bld) [Volume fraction] 45.1 % Normal 40-54 [facility] Comment on above: Order Comment: 107.1 Performed By: #### L [id number], L500.4100, L100.0500 #### [facility] [address] [place], [address] Hemoglobin (Bld) [Mass/Vol] 15.3 g/dL Normal 13.0-16.5 [facility] Comment on above: Order Comment: 107.1 Performed By: #### L [id number], [id number], L100.0500 #### [facility] [address] [place], [address] MCH (RBC) [Entitic mass] 30.4 pg Normal 27.0-32.0 [facility] Comment on above: Order Comment: 107.1 Performed By: #### L [id number], [id number], L100.0500 #### [facility] [address] [place], [address] MCHC (RBC) [Mass/Vol] 33.9 g/dL Normal 32-36 [facility] Comment on above: Order Comment: 107.1 Performed By: #### L [id number], [id number], L100.0500 #### [facility] [address] [place], [address] MCV (RBC) [Entitic vol] 89.5 fL Normal 80-94 [facility] Comment on above: Order Comment: 107.1 Performed By: #### L [id number], [id number], L100.0500 #### [facility] [address] [place], [address] Platelet mean volume (Bld) [Entitic vol] 10.9 fL Normal 6.2-12.0 [facility] Comment on above: Order Comment: 107.1 Performed By: #### L [id number], [id number], L100.0500 #### [facility] [address] [place], [address] Platelets (Bld) [#/Vol] 133 10*3/uL Low 150-450 [facility] Comment on above: Order Comment: 107.1 Performed By: #### L [id number], [id number], L100.0500 #### [facility] [address] [place], [address] RBC (Bld) [#/Vol] 5.04 10*6/uL Normal 4.6-6.2 [facility] Comment on above: Order Comment: 107.1 Performed By: #### L [id number], [id number], L100.0500 #### [facility] [address] [place], [address] RDW SD 41.9 fl Normal 35.1-43.9 [facility] Comment on above: Order Comment: 107.1 Performed By: #### L [id number], [id number], L100.0500 #### [facility] [address] [place], [address] WBC (Bld) [#/Vol] 7.0 10*3/uL Normal 4.4-11.0 [facility] Comment on above: Order Comment: 107.1 Performed By: #### L [id number], [id number], L100.0500 #### [facility] [address] [place], [address] Lipid Profileon 01-09-2024 Cholesterol [Mass/Vol] 122 mg/dL Normal 200 [facility] Comment on above: Order Comment: 107.1 Result Comment: <200 mg/dL Desirable 200-240 mg/dL Borderline >240 mg/dL High Risk Performed By: #### L [id number], L500.4100, L100.0500 #### [facility] [address] [place], [address] Cholesterol in HDL [Mass/Vol] 46 mg/dL Normal [facility] Comment on above: Order Comment: 107.1 Result Comment: The drugs N-Acetylcysteine and Metamizole may falsely depress this assay. Reference Range HDL <40 mg/dL Low HDL Cholesterol HDL >or= 60 mg/dL High HDL Cholesterol Performed By: #### L [id number], L500.4100, L100.0500 #### [facility] [address] [place], [address] Cholesterol in LDL [Mass/Vol] 44 mg/dL Normal 0-130 [facility] Comment on above: Order Comment: 107.1 Performed By: #### L [id number], [id number], L100.0500 #### [facility] [address] [place], [address] Cholesterol in VLDL [Mass/Vol] 32 mg/dL Normal 5-40 [facility] Comment on above: Order Comment: 107.1 Performed By: #### L [id number], [id number], L100.0500 #### [facility] [address] [place], [address] Triglyceride [Mass/Vol] 158 mg/dL Normal [facility] Comment on above: Order Comment: 107.1 Result Comment: The drugs N-Acetylcysteine and Metamizole may falsely depress this assay. Serum Triglycerides Reference Interval Normal <150 mg/dL Borderline high 150 - 199 mg/dL High 200 - 499 mg/dL Very High > or = 500 mg/dL Performed By: #### L [id number], L500.4100, L100.0500 #### [facility] [address] [place], [address] Valproic Acid (Depakene) Lev alison 01-09-2024 VALPROIC ACID 62 ug/mL Normal 50-100 [facility] Comment on above: Order Comment: 107.1 Performed By: #### L [id number], [id number], L100.0500 #### [facility] [address] [place], [address] [facility] 01-03-2024 PATINS Return Appointment i n: 1 week - Should you experience any significant changes in your wound(s) or have any questions regarding your home care instructions please contact the wound center at [phone] If after regular business hours, please call your family doctor or local emergency room. Edema Control: Elevate legs to the level of the heart or above for 30 minutes daily and/or when sitting Additional Orders/Instructions: Follow diet per physicians instructions - such as increasing protein intake to promote wound healing. Please begin including a protein supplement/shake to patient's diet to help with wound healing Take antibiotic as directed Nursing Care Facility: [facility] Wound Treatment to R toes- Daily Cleanse wound with mild soap and water and pat dry. Apply Calcium Alginate Apply dry dressing to cover the wound and secure with tape. Wound Treatment to RLE: Weekly Cleanse wound with mild soap and water and pat dry. Apply Profore light Do not get wet. OK to shower if wound dressing covered Apply Barrier Cream to bilateral buttocks and sacral area daily and PRN. [facility] 12-27-2023 PATINS Return Appointment i n: 1 week - Should you experience any significant changes in your wound(s) or have any questions regarding your home care instructions please contact the wound center at [phone] If after regular business hours, please call your family doctor or local emergency room. Edema Control: Elevate legs to the level of the heart or above for 30 minutes daily and/or when sitting Additional Orders/Instructions: Follow diet per physicians instructions - such as increasing protein intake to promote wound healing. Please begin including a protein supplement/shake to patient's diet to help with wound healing Take antibiotic as directed Nursing Care Facility: [facility] Wound Treatment to R toes- Daily Cleanse wound with mild soap and water and pat dry. Apply Calcium Alginate Apply dry dressing to cover the wound and secure with tape. Wound Treatment to RLE: Weekly Cleanse wound with mild soap and water and pat dry. Apply Profore light Do not get wet. OK to shower if wound dressing covered Apply Barrier Cream to bilateral buttocks and sacral area daily and PRN. [facility] 12-20-2023 PATINS Return Appointment i n: 1 week - Should you experience any significant changes in your wound(s) or have any questions regarding your home care instructions please contact the wound center at [phone] If after regular business hours, please call your family doctor or local emergency room. Edema Control: Elevate legs to the level of the heart or above for 30 minutes daily and/or when sitting Additional Orders/Instructions: Follow diet per physicians instructions - such as increasing protein intake to promote wound healing. Please begin including a protein supplement/shake to patient's diet to help with wound healing Take antibiotic as directed Nursing Care Facility: [facility] Wound Treatment to R toes- Daily Cleanse wound with mild soap and water and pat dry. Apply Calcium Alginate Apply dry dressing to cover the wound and secure with tape. Wound Treatment to RLE: Weekly (R leg healed) Cleanse wound with mild soap and water and pat dry. Apply Profore light Do not get wet. OK to shower if wound dressing covered Apply Barrier Cream to bilateral buttocks and sacral area daily and PRN. [facility] 12-13-2023 PATINS Return Appointment i n: 1 week - Should you experience any significant changes in your wound(s) or have any questions regarding your home care instructions please contact the wound center at [phone] If after regular business hours, please call your family doctor or local emergency room. Edema Control: Elevate legs to the level of the heart or above for 30 minutes daily and/or when sitting Additional Orders/Instructions: Follow diet per physicians instructions - such as increasing protein intake to promote wound healing. Please begin including a protein supplement/shake to patient's diet to help with wound healing Take antibiotic as directed Nursing Care Facility: [facility] Wound Treatment to R toes- Daily Cleanse wound with mild soap and water and pat dry. Apply Calcium Alginate Apply dry dressing to cover the wound and secure with tape. Wound Treatment to RLE: Weekly (R leg healed) Cleanse wound with mild soap and water and pat dry. Apply Profore light Do not get wet. OK to shower if wound dressing covered Apply Barrier Cream to bilateral buttocks and sacral area daily and PRN. [facility] 12-06-2023 PATINS Return Appointment i n: 1 week - Should you experience any significant changes in your wound(s) or have any questions regarding your home care instructions please contact the wound center at [phone] If after regular business hours, please call your family doctor or local emergency room. Edema Control: Elevate legs to the level of the heart or above for 30 minutes daily and/or when sitting Additional Orders/Instructions: Follow diet per physicians instructions - such as increasing protein intake to promote wound healing. Please begin including a protein supplement/shake to patient's diet to help with wound healing Take antibiotic as directed Nursing Care Facility: [facility] Wound Treatment to R toes- Daily Cleanse wound with mild soap and water and pat dry. Apply Calcium Alginate Apply dry dressing to cover the wound and secure with tape. Wound Treatment to RLE: Weekly (R leg healed) Cleanse wound with mild soap and water and pat dry. Apply Profore light Do not get wet. OK to shower if wound dressing covered Apply Barrier Cream to bilateral buttocks and sacral area daily and PRN. [facility] PATINSon 11-29-2023 PATINS Return Appointment i n: 1 week - Should you experience any significant changes in your wound(s) or have any questions regarding your home care instructions please contact the wound center at [phone] If after regular business hours, please call your family doctor or local emergency room. Edema Control: Elevate legs to the level of the heart or above for 30 minutes daily and/or when sitting Additional Orders/Instructions: Follow diet per physicians instructions - such as increasing protein intake to promote wound healing. Please begin including a protein supplement/shake to patient's diet to help with wound healing Take antibiotic as directed Nursing Care Facility: [facility] Wound Treatment to R toes- Daily Cleanse wound with mild soap and water and pat dry. Apply Calcium Alginate Apply dry dressing to cover the wound and secure with tape. Wound Treatment to RLE: Weekly Cleanse wound with mild soap and water and pat dry. Apply Adaptic to wound beds Apply Calcium Alginate Apply Profore light Do not get wet. OK to shower if wound dressing covered Apply Barrier Cream to bilateral buttocks and sacral area daily and PRN. [facility] No Panel Informationon 11-21 Julissa Taylor DO 11/22/2023 11:40 AM Debridement Wound/Incision 11/15/23 Venous Ulcer Leg Right;Lower;Anterior;La teral Performed by: Julissa Taylor DO Authorized by: Julissa Taylor, DO Consent Consent obtained? verbal Consent given by: patient Risks discussed? procedural risks discussed Immediately prior to the procedure a time out was called and the performing provider verified the correct patient, procedure, equipment, cell support operator, and site/side marked as required. Debridement Details Performed by: physician Debridement type: surgical Level of debridement: subcutaneous tissue Pain control: lidocaine 2% Pain control administration type: topical Pre-debridement measurements Length (cm): 21.1 Width (cm): 5.8 Depth (cm): 0.1 Surface Area (cm^2): 122.38 Post-debridement measurements Length (cm): 21.1 Width (cm): 5.8 Depth (cm): 0.2 Percent debrided: 20% Surface Area (cm^2): 122.38 Area Debrided (cm^2): 24.48 Volume (cm^3): 24.48 Tissue and other material debrided: dermis, epidermis and subcutaneous tissue Devitalized tissue debrided: biofilm, slough and adherent product Instrument(s) utilized: curette and scissors Bleeding: small Hemostasis obtained with: pressure Procedural pain (0-10): 2 Post-procedural pain: 0 Response to treatment: procedure was tolerated well [facility] Return Appointment i n: 1 week - Should you experience any significant changes in your wound(s) or have any questions regarding your home care instructions please contact the wound center at [phone] If after regular business hours, please call your family doctor or local emergency room. Edema Control: Elevate legs to the level of the heart or above for 30 minutes daily and/or when sitting Additional Orders/Instructions: Follow diet per physicians instructions - such as increasing protein intake to promote wound healing. Please begin including a protein supplement/shake to patient's diet to help with wound healing Take antibiotic as directed Nursing Care Facility: [facility] Wound Treatment to R toes- Daily Cleanse wound with mild soap and water and pat dry. Apply Adaptic to wound bed Apply Calcium Alginate Apply dry dressing to cover the wound and secure with tape. Wound Treatment to RLE: Weekly Cleanse wound with mild soap and water and pat dry. Apply Adapt to wound beds Apply Calcium Alginate Apply Profore light Do not get wet. OK to shower if wound dressing covered Apply Barrier Cream to bilateral buttocks and sacral area daily and PRN. Normal [facility] Progress Noteon 11-17-2023 Progress Note [facility] Wound [facility] Nurse Visit Note Moises Madrid AGE: 62 y.o. GENDER: male : 1960 EPISODE DATE: 11/17/23 Arrival Information: Patient Arrived: Wheelchair Transfer Assistance: None Accompanied by: caregiver Any changes in medical history since last visit: No Added or removed any Medications: No Any new allergies: No Any falls since last visit: No Any hospitalizations or surgeries since last visit: No Assessment: Vitals: 11/17/23 1035 BP: 119/83 Pulse: 81 Resp: 18 Temp: 36.2 ?C (97.1 ?F) Wound/Incision 08/23/23 Lymphedema Toe - third Right;Anterior (Active) Wound Image 11/15/23 1109 Site Assessment Painful;Red;Sloughing 11/15/23 1109 Carine-Wound Assessment Dry 11/15/23 1109 Wound Length (cm) 1.5 cm 11/15/23 1109 Wound Width (cm) 2.9 cm 11/15/23 1109 Wound Surface Area (cm^2) 4.35 cm^2 11/15/23 1109 Wound Depth (cm) 0.3 cm 11/15/23 1109 Wound Volume (cm^3) 1.305 cm^3 11/15/23 1109 Wound Healing % -936 11/15/23 1109 Drainage Description Serosanguineous 11/17/23 1000 Odor None 11/15/23 1109 Drainage Amount Large 11/17/23 1000 Treatments Cleansed 11/17/23 1000 Primary Dressing Calcium alginate 11/17/23 1000 Secondary Dressing 4x4 gauze 11/17/23 1000 Secured with Conforming kerlex;Paper tape 11/17/23 1000 Compression Double Layer tubigrip 11/08/23 1000 Dressing Status Clean, dry & intact;New dressing 11/17/23 1000 Wound/Incision 11/15/23 Venous Ulcer Leg Right;Lower;Anterior;La teral (Active) Wound Image 11/15/23 1110 Site Assessment Bleeding;Painful;Red 11/15/23 1110 Carine-Wound Assessment Dark edges;Dry;Erythematous 11/15/23 1110 Wound Length (cm) 18.5 cm 11/15/23 1110 Wound Width (cm) 6 cm 11/15/23 1110 Wound Surface Area (cm^2) 111 cm^2 11/15/23 1110 Wound Depth (cm) 0.1 cm 11/15/23 1110 Wound Volume (cm^3) 11.1 cm^3 11/15/23 1110 Drainage Description Serosanguineous 11/17/23 1000 Odor None 11/15/23 1110 Drainage Amount Moderate 11/17/23 1000 Treatments Cleansed 11/17/23 1000 Primary Dressing Calcium alginate 11/17/23 1000 Secondary Dressing 4x4 gauze 11/17/23 1000 Secured with Kerlex;Paper tape 11/17/23 1000 Compression Multilayer compression wrap - 3 layers 11/17/23 1000 Dressing Status New dressing;Clean, dry & intact 11/17/23 1000 Treatment: Wound: lateral right leg and third right toe Patient was seen for a nurse visit to have wound dressings/wraps changed. Dressing was removed. Wounds were cleansed with hibiclens and water. Calcium alginate, kerlex dressing was applied to wounds 3-layer multi layer wrap compression wrap was applied to right lower leg per provider's orders. Discharge Information: Patient was discharged in stable condition. Ambulatory Status: Wheelchair Discharge Destination: retirement facility Transportation: Private Auto Accompanied by: caregiver Schedule Follow up Appointment: no No orders of the defined types were placed in this encounter. [facility] Return Appointment i n: 1 week - Should you experience any significant changes in your wound(s) or have any questions regarding your home care instructions please contact the wound center at [phone] If after regular business hours, please call your family doctor or local emergency room. Edema Control: Elevate legs to the level of the heart or above for 30 minutes daily and/or when sitting Additional Orders/Instructions: Follow diet per physicians instructions - such as increasing protein intake to promote wound healing. Please begin including a protein supplement/shake to patient's diet to help with wound healing Take antibiotic as directed Nursing Care Facility: [facility] Wound Treatment to R toes- Daily Cleanse wound with mild soap and water and pat dry. Apply Calcium Alginate Apply dry dressing to cover the wound and secure with tape. Wound Treatment to RLE: Cleanse wound with mild soap and water and pat dry. Apply Calcium Alginate Apply Profore light return to center on Monday 8/ Do not get wet. OK to shower if wound dressing covered Apply Barrier Cream to bilateral buttocks and sacral area daily and PRN. Normal [facility] Progress Noteon 11-15-2023 Progress Note Assessments Nursing Assessment/Reassessment Score (check box all that apply) Reassessment of Co-morbidities (includes updates in patient status) 10 [x] Wound and Skin Assessment/Reassessment 5 [x] Reassessment of Adherence to Treatment Plan Simple Wound Assessment / Reassessment - one wound 5 [] Complex Wound Assessment - multiple wounds (# of: 2 ) multiply by 5 to get score 10 [x] Dermatologic / Skin Assessment (not related to wound area) 10 [x] Focused Assessment Circumferential Edema Measurements - multi extremities (# of: 0) multiply by 5 to get score 0 [] Nutritional Assessment/Counseling/I ntervention 10 [] Lower Extremity Assessment (monofilament, tuning fork, pulses) 5 [] Peripheral Arterial Disease Assessment (using hand-held doppler) 10 [] Ostomy and/or Continence Assessment & Care Incontinence Assessment and Management 10 [] Ostomy Care Assessment and Management (repouching, etc) 20 [] Process Coordination of Care Simple Patient/Family Education for ongoing care 15 [x] Complex (extensive) Patient/Family Education for ongoing of care 20 [] Staff obtains Consent, Records, Test Results/Process Orders 10 [] Staff telephones [facility], Nursing Homes/Clarify Orders 10 [] Routine Transfer to another Facility (non-emergent condition) 10 [] Routine Hospital Admission (non-emergent condition) 10 [] New Admissions/Insurance Auth/Ordering NPWT, skin substitute, etc. 15 [] Emergency Hospital Admission (emergent condition) 20 [] Simple Discharge Coordination 10 [] Complex (extensive) Discharge Coordination 15 [] Special Needs Pediatric / Minor Patient Management 10 [] Isolation Patient Management 10 [] Hearing/Language/Visual Special Needs 15 [] Assessment of Community Assistance (transportation, discharge planning) 15 [] Additional Assistance / Altered Mentation 15 [] Support Surface Assessment (bed, cushion, seat) 15 [] Interventions Wound Cleansing/Measurement Simple Wound Cleansing - one wound 5 [] Complex Wound Cleansing - multiple wounds (# of: 2) multiply by 5 to get score 10 [x] Wound Imaging (photographs - any number of wounds) 5 [x] Wound Tracing (instead of photographs) 5 [] Simple Wound Measurements - one wound 5 [] Complex Wound Measuremnts - multiple wounds (#of: 2) multiply by 5 to get score 10 [x] Wound Dressings Small Wound Dressing - one or multiple wounds (# of: 0 ) multiply by 10 to get score 0 [] Medium Wound Dressing - one or multiple wounds (# of: 2 ) multiply by 15 to get score 30 [x] Large Wound Dressing - one or multiple wounds (# of: 0) multiply by 20 to get score 0 [] Application of Medications - topical 5 [] Application of Medication - injection 10 [] Miscellaneous External Ear Exam Specimen Collection (culture, biopsies, blood, body fluids, etc) 5 [] Specimen/Culture sent or taken to lab for analysis 5 [] Patient Transfer (multiple staff/Darrin lift) 10 [] Simple Staple/Suture Removal (25 or less) 5 [] Complex Staple/Suture Removal (26 or more) 10 [] Hypo/Hyperglycemic Management 10 [] Ankle/Brachial Index (JULES) 15 [] Vital Signs 5 [x] Total Points - Use to Determine Level of Clinic Visit 110 Points Castro: Level 1 (1-35 Points) Level 2 (40-75 Points) Level 3 (80-115 Points) Level 4 (120-155 Points) Level 5 (160 or more Points) [facility] 11-08-2023 PATINS Return Appointment i n: 1 week - Should you experience any significant changes in your wound(s) or have any questions regarding your home care instructions please contact the wound center at [phone] If after regular business hours, please call your family doctor or local emergency room. Edema Control: Extremity Option: right lower leg Elevate legs to the level of the heart or above for 30 minutes daily and/or when sitting Left lower leg - Apply Single Layer Tubigrip - (on am/off pm) Additional Orders/Instructions: Follow diet per physicians instructions - such as increasing protein intake to promote wound healing. Please begin including a protein supplement/shake to patient's diet to help with wound healing Take antibiotic as directed Nursing Care Facility: [facility] Wound Treatment to R toes and R leg: Daily Cleanse wound with mild soap and water and pat dry. Apply Calcium Alginate Apply dry dressing to cover the wound and secure with tape. Apply double tubi-job developer On Am/off PM OK to shower if wound dressing covered Apply Barrier Cream to bilateral buttocks and sacral area daily and PRN. [facility] Progress Noteon 11-08-2023 Progress Note Assessments Nursing Assessment/Reassessment Score (check box all that apply) Reassessment of Co-morbidities (includes updates in patient status) 10 [x] Wound and Skin Assessment/Reassessment 5 [x] Reassessment of Adherence to Treatment Plan Simple Wound Assessment / Reassessment - one wound 5 [] Complex Wound Assessment - multiple wounds (# of: 2 ) multiply by 5 to get score 10 [x] Dermatologic / Skin Assessment (not related to wound area) 10 [x] Focused Assessment Circumferential Edema Measurements - multi extremities (# of: 0) multiply by 5 to get score 0 [] Nutritional Assessment/Counseling/I ntervention 10 [] Lower Extremity Assessment (monofilament, tuning fork, pulses) 5 [] Peripheral Arterial Disease Assessment (using hand-held doppler) 10 [] Ostomy and/or Continence Assessment & Care Incontinence Assessment and Management 10 [] Ostomy Care Assessment and Management (repouching, etc) 20 [] Process Coordination of Care Simple Patient/Family Education for ongoing care 15 [x] Complex (extensive) Patient/Family Education for ongoing of care 20 [] Staff obtains Consent, Records, Test Results/Process Orders 10 [x] Staff telephones [facility], Nursing Homes/Clarify Orders 10 [x] Routine Transfer to another Facility (non-emergent condition) 10 [] Routine Hospital Admission (non-emergent condition) 10 [] New Admissions/Insurance Auth/Ordering NPWT, skin substitute, etc. 15 [] Emergency Hospital Admission (emergent condition) 20 [] Simple Discharge Coordination 10 [] Complex (extensive) Discharge Coordination 15 [] Special Needs Pediatric / Minor Patient Management 10 [] Isolation Patient Management 10 [] Hearing/Language/Visual Special Needs 15 [] Assessment of Community Assistance (transportation, discharge planning) 15 [] Additional Assistance / Altered Mentation 15 [] Support Surface Assessment (bed, cushion, seat) 15 [] Interventions Wound Cleansing/Measurement Simple Wound Cleansing - one wound 5 [] Complex Wound Cleansing - multiple wounds (# of: 2) multiply by 5 to get score 10 [x] Wound Imaging (photographs - any number of wounds 5 [x] Wound Tracing (instead of photographs) 5 [] Simple Wound Measurements - one wound 5 [x] Complex Wound Measuremnts - multiple wounds (#of: 0) multiply by 5 to get score 0 [] Wound Dressings Small Wound Dressing - one or multiple wounds (# of: 10) multiply by 10 to get score 10 [x] Medium Wound Dressing - one or multiple wounds (# of: 2 ) multiply by 15 to get score 0 Large Wound Dressing - one or multiple wounds (# of: 0) multiply by 20 to get score 0 [] Application of Medications - topical 5 [x] Application of Medication - injection 10 [] Miscellaneous External Ear Exam Specimen Collection (culture, biopsies, blood, body fluids, etc) 5 [] Specimen/Culture sent or taken to lab for analysis 5 [] Patient Transfer (multiple staff/Darrin lift) 10 [] Simple Staple/Suture Removal (25 or less) 5 [] Complex Staple/Suture Removal (26 or more) 10 [] Hypo/Hyperglycemic Management 10 [] Ankle/Brachial Index (JULES) 15 [] Vital Signs 5 [x] Total Points - Use to Determine Level of Clinic Visit 110 Points Castro: Level 1 (1-35 Points) Level 2 (40-75 Points) Level 3 (80-115 Points) Level 4 (120-155 Points) Level 5 (160 or more Points) [facility] 11-01-2023 PATI Return Appointment i n: 1 week - Should you experience any significant changes in your wound(s) or have any questions regarding your home care instructions please contact the wound center at [phone] If after regular business hours, please call your family doctor or local emergency room. Edema Control: Extremity Option: right lower leg Elevate legs to the level of the heart or above for 30 minutes daily and/or when sitting Left lower leg - Apply Single Layer Tubigrip - (on am/off pm) Additional Orders/Instructions: Follow diet per physicians instructions - such as increasing protein intake to promote wound healing. Please begin including a protein supplement/shake to patient's diet to help with wound healing Take antibiotic as directed Nursing Care Facility: [facility] Wound Treatment to R toes: Daily Cleanse wound with mild soap and water and pat dry. Apply Hydrafera blue Superabsorbent pad or sorbex Kerlix Apply dry dressing to cover the wound and secure with tape. OK to shower if wound dressing covered Wound Treatment to RLE: Weekly Unna Boot profore lite Apply Barrier Cream to bilateral buttocks and sacral area daily and PRN. Normal [facility] No Panel Informationon 10-24 Julissa Taylor DO 10/25/2023 1:01 PM Debridement Wound/Incision 08/23/23 Lymphedema Toe- second Right Wound/Incision 08/23/23 Lymphedema Toe - third Right Wound/Incision 10/18/23 Lymphedema Toe - great Right Performed by: Julissa Taylor DO Authorized by: Julissa Taylor DO Consent Consent obtained? verbal Consent given by: patient Risks discussed? procedural risks discussed Immediately prior to the procedure a time out was called and the performing provider verified the correct patient, procedure, equipment, cell support operator, and site/side marked as required. Debridement Details Performed by: physician Debridement type: surgical Level of debridement: subcutaneous tissue Pain control: lidocaine 2% Pain control administration type: topical Pre-debridement measurements Length (cm): 2.7 Width (cm): 3.8 Depth (cm): 0.2 Surface Area (cm^2): 10.26 Post-debridement measurements Length (cm): 2.8 Width (cm): 3.8 Depth (cm): 0.3 Percent debrided: 100% Surface Area (cm^2): 10.64 Area Debrided (cm^2): 10.64 Volume (cm^3): 3.19 Tissue and other material debrided: dermis, epidermis and subcutaneous tissue Devitalized tissue debrided: biofilm, callus and slough Instrument(s) utilized: curette Bleeding: small Hemostasis obtained with: pressure Procedural pain (0-10): insensate Post-procedural pain: insensate Response to treatment: procedure was tolerated well [facility] PATINSon 10-25-2023 PATINS Return Appointment i n: 1 week - Should you experience any significant changes in your wound(s) or have any questions regarding your home care instructions please contact the wound center at [phone] If after regular business hours, please call your family doctor or local emergency room. Edema Control: Extremity Option: right lower leg Elevate legs to the level of the heart or above for 30 minutes daily and/or when sitting Left lower leg - Apply Single Layer Tubigrip - (on am/off pm) Additional Orders/Instructions: Follow diet per physicians instructions - such as increasing protein intake to promote wound healing. Please begin including a protein supplement/shake to patient's diet to help with wound healing Take antibiotic as directed Nursing Care Facility: [facility] Wound Treatment: Wound: right toes and RLE Dressing Frequency: Dressing weekly Wound Cleansing: OK to shower if wound dressing covered Apply hydrafera blue Secondary Dressing: Superabsorbent pad or sorbex Secure With: Kerlex Roll gauze 4, Silk Tape 1 Compression: Unna boot profore lite Apply Barrier Cream to bilateral buttocks and sacral area daily and PRN. [facility] 10-18-2023 PATINS Return Appointment i n: 1 week - Should you experience any significant changes in your wound(s) or have any questions regarding your home care instructions please contact the wound center at [phone] If after regular business hours, please call your family doctor or local emergency room. Edema Control: Extremity Option: right lower leg Elevate legs to the level of the heart or above for 30 minutes daily and/or when sitting Left lower leg - Apply Single Layer Tubigrip - (on am/off pm) Additional Orders/Instructions: Follow diet per physicians instructions - such as increasing protein intake to promote wound healing. Please begin including a protein supplement/shake to patient's diet to help with wound healing Take antibiotic as directed Nursing Care Facility: [facility] Wound Treatment: Wound: right toes Dressing Frequency: Dressing in place every other day Wound Cleansing: Cleanse with antibacterial soap and water, pat dry Primary Dressing: Calcium Alginate 4/4 Secondary Dressing: Superabsorbent pad or sorbex Secure With: Kerlex Roll gauze 4, Silk Tape 1 Compression: Sure press or Setopress Apply Barrier Cream to bilateral buttocks and sacral area daily and PRN. Normal [facility] Hemoglobin A1con 10-16-2023 HbA1c (Bld) [Mass fraction] 6.1 % High 3.8-5.6 [facility] Comment on above: Order Comment: 107.1 Result Comment: Norm al < 5.7 % Prediabetic 5.7 - 6.4 % Diabetic >or= 6.5 % Please note range changes. Performed By: #### L 501.8100, L500.4100, L100.0500 #### [facility] [id number] [place], [address] No Panel Informationon 10-10 Julissa Taylor DO 10/11/2023 11:30 AM Debridement Wound/Incision 08/23/23 Venous Ulcer Toe- second Right Performed by: Julissa Taylor DO Authorized by: Julissa Taylor DO Consent Consent obtained? verbal Consent given by: patient Risks discussed? procedural risks discussed Immediately prior to the procedure a time out was called and the performing provider verified the correct patient, procedure, equipment, cell support operator, and site/side marked as required. Debridement Details Performed by: physician Debridement type: surgical Level of debridement: subcutaneous tissue Pain control: lidocaine 2% Pain control administration type: topical Pre-debridement measurements Length (cm): 1.5 Width (cm): 1.7 Depth (cm): 0.1 Surface Area (cm^2): 2.55 Post-debridement measurements Length (cm): 1.6 Width (cm): 1.7 Depth (cm): 0.2 Percent debrided: 100% Surface Area (cm^2): 2.72 Area Debrided (cm^2): 2.72 Volume (cm^3): 0.54 Tissue and other material debrided: dermis, epidermis and subcutaneous tissue Devitalized tissue debrided: biofilm and slough Instrument(s) utilized: curette Bleeding: small Hemostasis obtained with: pressure Procedural pain (0-10): 1 Post-procedural pain: 0 Response to treatment: procedure was tolerated well [facility] Julissa Taylor DO 10/11/2023 11:30 AM Debridement Wound/Incision 08/23/23 Venous Ulcer Toe - third Right Performed by: Julissa Taylor DO Authorized by: Julissa Taylor, DO Consent Consent obtained? verbal Consent given by: patient Risks discussed? procedural risks discussed Immediately prior to the procedure a time out was called and the performing provider verified the correct patient, procedure, equipment, cell support operator, and site/side marked as required. Debridement Details Performed by: physician Debridement type: surgical Level of debridement: subcutaneous tissue Pain control: lidocaine 2% Pain control administration type: topical Pre-debridement measurements Length (cm): 0.6 Width (cm): 0.5 Depth (cm): 0.1 Surface Area (cm^2): 0.3 Post-debridement measurements Length (cm): 0.6 Width (cm): 0.6 Depth (cm): 0.2 Percent debrided: 100% Surface Area (cm^2): 0.36 Area Debrided (cm^2): 0.36 Volume (cm^3): 0.07 Tissue and other material debrided: dermis, epidermis and subcutaneous tissue Devitalized tissue debrided: biofilm and slough Instrument(s) utilized: curette Bleeding: small Hemostasis obtained with: pressure Procedural pain (0-10): 1 Post-procedural pain: 0 Response to treatment: procedure was tolerated well [facility] 10-11-2023 [facility] Return Appointment i n: 1 week - Should you experience any significant changes in your wound(s) or have any questions regarding your home care instructions please contact the wound center at [phone] If after regular business hours, please call your family doctor or local emergency room. Edema Control: Extremity Option: right lower leg Elevate legs to the level of the heart or above for 30 minutes daily and/or when sitting Multilayer Compression Therapy- 3 layers: Do not get legs with compression wrap wet. If wraps seem too tight, elevate legs above level of heart for one hour. If no relief, call the wound center. Unna Boot: Do not remove Unna Boot. Keep dry. If pain or swelling or discoloration of toes noted, elevate legs above level of heart for 1 hour. If no relief, call the center. If unable to reach center, remove boot and keep leg elevated until contact with center can be made. Left lower leg - Apply Single Layer Tubigrip - (on am/off pm) Additional Orders/Instructions: Follow diet per physicians instructions - such as increasing protein intake to promote wound healing. Please begin including a protein supplement/shake to patient's diet to help with wound healing Nursing Care Facility: [facility] Wound Treatment: Wound: right toes Dressing Frequency: Keep dressing in place all week Wound Cleansing: May shower with protection - Protect wound and dressing with water repellant cover/cast cover (e.g., large plastic bag) which can be obtained at [facility] and may take shower. Hold Collagen AG for now Secondary Dressing: Calcium Alginate 4x4 Secure With: Kerlex Roll gauze 4, Silk Tape 1 Compression: Unna boot & multilayer compression wrap - 3 layers (cover toes) Apply Barrier Cream to bilateral buttocks and sacral area daily and PRN. Normal [facility] No Panel Informationon 10-03 Julissa Taylor DO 10/04/2023 4:29 PM Debridement Wound/Incision 08/23/23 Venous Ulcer Toe- second Right Performed by: Julissa Taylor DO Authorized by: Julissa Taylor, Consent Consent obtained? verbal Consent given by: patient Risks discussed? procedural risks discussed Immediately prior to the procedure a time out was called and the performing provider verified the correct patient, procedure, equipment, cell support operator, and site/side marked as required. Debridement Details Performed by: physician Debridement type: surgical Level of debridement: subcutaneous tissue Pain control: lidocaine 2% Pain control administration type: topical Pre-debridement measurements Length (cm): 1.5 Width (cm): 1.5 Depth (cm): 0.2 Surface Area (cm^2): 2.25 Post-debridement measurements Length (cm): 1.5 Width (cm): 1.6 Depth (cm): 0.2 Percent debrided: 100% Surface Area (cm^2): 2.4 Area Debrided (cm^2): 2.4 Volume (cm^3): 0.48 Tissue and other material debrided: dermis, epidermis and subcutaneous tissue Devitalized tissue debrided: biofilm and slough Instrument(s) utilized: curette Bleeding: small Hemostasis obtained with: pressure Procedural pain (0-10): 0 Post-procedural pain: 0 Response to treatment: procedure was tolerated well [facility] Julissa Taylor DO 10/04/2023 4:29 PM Debridement Wound/Incision 08/23/23 Venous Ulcer Toe - third Right Performed by: Julissa Taylor DO Authorized by: Julissa Taylor, DO Consent Consent obtained? verbal Consent given by: patient Risks discussed? procedural risks discussed Immediately prior to the procedure a time out was called and the performing provider verified the correct patient, procedure, equipment, cell support operator, and site/side marked as required. Debridement Details Performed by: physician Debridement type: surgical Level of debridement: subcutaneous tissue Pain control: lidocaine 2% Pain control administration type: topical Pre-debridement measurements Length (cm): 0.5 Width (cm): 0.3 Depth (cm): 0.2 Surface Area (cm^2): 0.15 Post-debridement measurements Length (cm): 0.5 Width (cm): 0.6 Depth (cm): 0.2 Percent debrided: 100% Surface Area (cm^2): 0.3 Area Debrided (cm^2): 0.3 Volume (cm^3): 0.06 Tissue and other material debrided: dermis, epidermis and subcutaneous tissue Devitalized tissue debrided: biofilm and slough Instrument(s) utilized: curette Bleeding: small Hemostasis obtained with: pressure Procedural pain (0-10): 0 Post-procedural pain: 0 Response to treatment: procedure was tolerated well [facility] 10-04-2023 [facility] Return Appointment i n: 1 week - Should you experience any significant changes in your wound(s) or have any questions regarding your home care instructions please contact the wound center at [phone] If after regular business hours, please call your family doctor or local emergency room. Edema Control: Extremity Option: right lower leg Elevate legs to the level of the heart or above for 30 minutes daily and/or when sitting Multilayer Compression Therapy- 3 layers: Do not get legs with compression wrap wet. If wraps seem too tight, elevate legs above level of heart for one hour. If no relief, call the wound center. Unna Boot: Do not remove Unna Boot. Keep dry. If pain or swelling or discoloration of toes noted, elevate legs above level of heart for 1 hour. If no relief, call the center. If unable to reach center, remove boot and keep leg elevated until contact with center can be made. Left lower leg - Apply Single Layer Tubigrip - (on am/off pm) Additional Orders/Instructions: Follow diet per physicians instructions - such as increasing protein intake to promote wound healing. Please begin including a protein supplement/shake to patient's diet to help with wound healing Nursing Care Facility: [facility] Wound Treatment: Wound: right toes Dressing Frequency: Keep dressing in place all week Wound Cleansing: May shower with protection - Protect wound and dressing with water repellant cover/cast cover (e.g., large plastic bag) which can be obtained at [facility] and may take shower. Primary Dressing: Collagen Ag 2x2 Secondary Dressing: Calcium Alginate 4x4 Secure With: Kerlex Roll gauze 4, Silk Tape 1 Compression: Unna boot & multilayer compression wrap - 3 layers (cover toes) Apply Barrier Cream to bilateral buttocks and sacral area daily and PRN. [facility] 09-27-2023 PAT[facility] Return Appointment i n: 1 week - Should you experience any significant changes in your wound(s) or have any questions regarding your home care instructions please contact the wound center at [phone] If after regular business hours, please call your family doctor or local emergency room. Edema Control: Extremity Option: right lower leg Elevate legs to the level of the heart or above for 30 minutes daily and/or when sitting Multilayer Compression Therapy- 3 layers: Do not get legs with compression wrap wet. If wraps seem too tight, elevate legs above level of heart for one hour. If no relief, call the wound center. Unna Boot: Do not remove Unna Boot. Keep dry. If pain or swelling or discoloration of toes noted, elevate legs above level of heart for 1 hour. If no relief, call the center. If unable to reach center, remove boot and keep leg elevated until contact with center can be made. Left lower leg - Apply Single Layer Tubigrip - (on am/off pm) Additional Orders/Instructions: Follow diet per physicians instructions - such as increasing protein intake to promote wound healing. Please begin including a protein supplement/shake to patient's diet to help with wound healing Nursing Care Facility: [facility] Wound Treatment: Wound: right toes Dressing Frequency: Keep dressing in place all week Wound Cleansing: May shower with protection - Protect wound and dressing with water repellant cover/cast cover (e.g., large plastic bag) which can be obtained at [facility] and may take shower. Primary Dressing: Collagen Ag 2x2 Secondary Dressing: Calcium Alginate 4x4 Secure With: Kerlex Roll gauze 4, Silk Tape 1 Compression: Unna boot & multilayer compression wrap - 3 layers (cover toes) [facility] PATINSon 09-20-2023 PATINS Return Appointment i n: 1 week - Should you experience any significant changes in your wound(s) or have any questions regarding your home care instructions please contact the wound center at [phone] If after regular business hours, please call your family doctor or local emergency room. Edema Control: Extremity Option: right lower leg Elevate legs to the level of the heart or above for 30 minutes daily and/or when sitting Multilayer Compression Therapy- 3 layers: Do not get legs with compression wrap wet. If wraps seem too tight, elevate legs above level of heart for one hour. If no relief, call the wound center. Unna Boot: Do not remove Unna Boot. Keep dry. If pain or swelling or discoloration of toes noted, elevate legs above level of heart for 1 hour. If no relief, call the center. If unable to reach center, remove boot and keep leg elevated until contact with center can be made. Left lower leg - Apply Single Layer Tubigrip - (on am/off pm) Additional Orders/Instructions: Follow diet per physicians instructions - such as increasing protein intake to promote wound healing. Please begin including a protein supplement/shake to patient's diet to help with wound healing Nursing Care Facility: [facility] Wound Treatment: Wound: right toes Dressing Frequency: Keep dressing in place all week Wound Cleansing: May shower with protection - Protect wound and dressing with water repellant cover/cast cover (e.g., large plastic bag) which can be obtained at [facility] and may take shower. Primary Dressing: Collagen Ag 2x2 Secondary Dressing: Calcium Alginate 4x4 Secure With: Kerlex Roll gauze 4, Silk Tape 1 Compression: Unna boot & multilayer compression wrap - 3 layers (cover toes) [facility] No Panel Informationon 09-12 Julissa Taylor DO 09/13/2023 3:24 PM Debridement Wound/Incision 08/23/23 Venous Ulcer Toe- second Right Performed by: Julissa Taylor DO Authorized by: Julissa Taylor, Consent Consent obtained? verbal Consent given by: patient Risks discussed? procedural risks discussed Immediately prior to the procedure a time out was called and the performing provider verified the correct patient, procedure, equipment, cell support operator, and site/side marked as required. Debridement Details Performed by: physician Debridement type: surgical Level of debridement: subcutaneous tissue Pain control: lidocaine 2% Pain control administration type: topical Pre-debridement measurements Length (cm): 1.9 Width (cm): 2.2 Depth (cm): 0.2 Surface Area (cm^2): 4.18 Post-debridement measurements Length (cm): 2 Width (cm): 2.2 Depth (cm): 0.2 Percent debrided: 100% Surface Area (cm^2): 4.4 Area Debrided (cm^2): 4.4 Volume (cm^3): 0.88 Tissue and other material debrided: dermis, epidermis and subcutaneous tissue Devitalized tissue debrided: biofilm and slough Instrument(s) utilized: curette Bleeding: small Hemostasis obtained with: pressure Procedural pain (0-10): 1 Post-procedural pain: 0 Response to treatment: procedure was tolerated well [facility] Julissa Taylor DO 09/13/2023 3:24 PM Debridement Wound/Incision 08/23/23 Venous Ulcer Toe - third Right Performed by: Julissa Taylor DO Authorized by: Julissa Taylor, Consent Consent obtained? verbal Consent given by: patient Risks discussed? procedural risks discussed Immediately prior to the procedure a time out was called and the performing provider verified the correct patient, procedure, equipment, cell support operator, and site/side marked as required. Debridement Details Performed by: physician Debridement type: surgical Level of debridement: subcutaneous tissue Pain control: lidocaine 2% Pain control administration type: topical Pre-debridement measurements Length (cm): 0.8 Width (cm): 0.7 Depth (cm): 0.2 Surface Area (cm^2): 0.56 Post-debridement measurements Length (cm): 0.9 Width (cm): 0.7 Depth (cm): 0.3 Percent debrided: 100% Surface Area (cm^2): 0.63 Area Debrided (cm^2): 0.63 Volume (cm^3): 0.19 Tissue and other material debrided: dermis, epidermis and subcutaneous tissue Devitalized tissue debrided: biofilm, callus and slough Instrument(s) utilized: curette and scissors Bleeding: small Hemostasis obtained with: pressure Procedural pain (0-10): 2 Post-procedural pain: 0 Response to treatment: procedure was tolerated well [facility] PATINSon 09-13-2023 PAT[facility] Return Appointment i n: 1 week - Should you experience any significant changes in your wound(s) or have any questions regarding your home care instructions please contact the wound center at [phone] If after regular business hours, please call your family doctor or local emergency room. Edema Control: Extremity Option: right lower leg Elevate legs to the level of the heart or above for 30 minutes daily and/or when sitting Right lower leg - Multilayer Compression Therapy- 3 layers: Do not get legs with compression wrap wet. If wraps seem too tight, elevate legs above level of heart for one hour. If no relief, call the wound center. , Unna Boot: Do not remove Unna Boot. Keep dry. If pain or swelling or discoloration of toes noted, elevate legs above level of heart for 1 hour. If no relief, call the center. If unable to reach center, remove boot and keep leg elevated until contact with center can be made. Left lower leg - Apply Single Layer Tubigrip - (on am/off pm) Additional Orders/Instructions: Follow diet per physicians instructions - such as increasing protein intake to promote wound healing. Please begin including a protein supplement/shake to patient's diet to help with wound healing Nursing Care Facility: [facility] Wound Treatment: Wound: right toes & lower leg Dressing Frequency: Keep dressing in place all week Wound Cleansing: May shower with protection - Protect wound and dressing with water repellant cover/cast cover (e.g., large plastic bag) which can be obtained at [facility] and may take shower. Primary Dressing: Collagen Ag 2x2 Secondary Dressing: Calcium Alginate 4x4 & hydralock Secure With: Kerlex Roll gauze 4, Silk Tape 1 Compression: Unna boot & multilayer compression wrap - 3 layers (cover toes) Normal [facility] Valproic Acid (Depakene) Leeroy rosas 09-13-2023 VALPROIC ACID 43 ug/mL Low 50-100 [facility] Comment on above: Order Comment: 107.1 Performed By: #### L 501.8100, L500.4100, L100.0500 #### [facility] [address] [place], [address] Basic Metabolic Profile (BMP )on 09-12-2023 BUN/CRE 16.0 RATIO Normal 10-20 [facility] Comment on above: Order Comment: 107-1 Performed By: #### L 100.0500, L501.9985, L500.4100, L500.2500 #### [facility] [address] [place], [address] CA,Total 9.5 mg/dL Normal 8.5-10.1 [facility] Comment on above: Order Comment: 107-1 Performed By: #### L 100.0500, L501.9985, L500.4100, L500.2500 #### [facility] [address] [place], [address] Chloride [Moles/Vol] 105 mmol/L Normal 98-107 [facility] Comment on above: Order Comment: 107-1 Performed By: #### L 100.0500, L501.9985, L500.4100, L500.2500 #### [facility] [address] [place], [address] CO2 [Moles/Vol] 27.0 mmol/L Normal 21.0-32.0 [facility] Comment on above: Order Comment: 107-1 Performed By: #### L 100.0500, L501.9985, L500.4100, L500.2500 #### [facility] [address] [place], [address] Creatinine [Mass/Vol] 0.94 mg/dL Normal 0.70-1.30 [facility] Comment on above: Order Comment: 107-1 Result Comment: The validity of the calculated GFR GFRAA in patients over 70 years has not been determined. Clinical correlation is essential. Performed By: #### L 100.0500, L501.9985, L500.4100, L500.2500 #### [facility] [address] [place], [address] EST GFR - AA 105 mL/min Normal >60 [facility] Comment on above: Order Comment: 107-1 Result Comment: Afri can [place] GFR Calc Performed By: #### L 100.0500, L501.9985, L500.4100, L500.2500 #### [facility] [address] [place], [address] GAP 6 Normal 5-15 [facility] Comment on above: Order Comment: - Performed By: #### L 100.0500, L501.9985, L500.4100, L500.2500 #### [facility] [address] [place], [address] GFR/1.73 sq M.predicted among non-blacks MDRD (S/P/Bld) [Vol rate/Area] 87 mL/min/{1.73_m2} Normal >60 [facility] Comment on above: Order Comment: -1 Result Comment: Non- GFR Calc Performed By: #### L 100.0500, L501.9985, L500.4100, L500.2500 #### [facility] [address] [place], [address] Glucose [Mass/Vol] 107 mg/dL High 74-106 [facility] Comment on above: Order Comment: 107-1 Result Comment: Fast ing Glucose result from 100 to 125 mg/dL suggests IMPAIRED HOMEOSTASIS per A.D.A. criteria. Performed By: #### L 100.0500, L501.9985, L500.4100, L500.2500 #### [facility] [address] [place], [address] Potassium [Moles/Vol] 4.3 mmol/L Normal 3.5-5.1 [facility] Comment on above: Order Comment: 107-1 Performed By: #### L 100.0500, L501.9985, L500.4100, L500.2500 #### [facility] [address] [place], [address] Sodium [Moles/Vol] 138 mmol/L Normal 136-145 [facility] Comment on above: Order Comment: 107-1 Performed By: #### L 100.0500, L501.9985, L500.4100, L500.2500 #### [facility] [address] [place], [address] Urea nitrogen [Mass/Vol] 15 mg/dL Normal 7-18 [facility] Comment on above: Order Comment: 107-1 Performed By: #### L 100.0500, L501.9985, L500.4100, L500.2500 #### [facility] [address] [place], [address] CBC-Complete Blood Cnt No Di ffon 09-12-2023 Erythrocyte distribution width (RBC) [Ratio] 13.0 % Normal 11.6-14.6 [facility] Comment on above: Performed By: #### L 100.0500, L501.9985, L500.4100, L500.2500 #### [facility] [address] [place], [address] Hematocrit (Bld) [Volume fraction] 44.1 % Normal 40-54 [facility] Comment on above: Performed By: #### L 100.0500, L501.9985, L500.4100, L500.2500 #### [facility] [address] [place], [address] Hemoglobin (Bld) [Mass/Vol] 14.7 g/dL Normal 13.0-16.5 [facility] Comment on above: Performed By: #### L 100.0500, L501.9985, L500.4100, L500.2500 #### [facility] [address] [place], [address] MCH (RBC) [Entitic mass] 30.2 pg Normal 27.0-32.0 [facility] Comment on above: Performed By: #### L 100.0500, L501.9985, L500.4100, L500.2500 #### [facility] [address] [place], [address] MCHC (RBC) [Mass/Vol] 33.3 g/dL Normal 32-36 [facility] Comment on above: Performed By: #### L 100.0500, L501.9985, L500.4100, L500.2500 #### [facility] [address] [place], [address] MCV (RBC) [Entitic vol] 90.7 fL Normal 80-94 [facility] Comment on above: Performed By: #### L 100.0500, L501.9985, L500.4100, L500.2500 #### [facility] [address] [place], [address] Platelet mean volume (Bld) [Entitic vol] 11.4 fL Normal 6.2-12.0 [facility] Comment on above: Performed By: #### L 100.0500, L501.9985, L500.4100, L500.2500 #### [facility] [address] [place], [address] Platelets (Bld) [#/Vol] 120 10*3/uL Low 150-450 [facility] Comment on above: Performed By: #### L 100.0500, L501.9985, L500.4100, L500.2500 #### [facility] [address] [place], [address] RBC (Bld) [#/Vol] 4.86 10*6/uL Normal 4.6-6.2 [facility] Comment on above: Performed By: #### L 100.0500, [id number], L500.4100, L500.2500 #### [facility] [address] [place], [address] RDW SD 41.6 fl Normal 35.1-43.9 [facility] Comment on above: Performed By: #### L 100.0500, [id number], L500.4100, L500.2500 #### [facility] [address] [place], [address] WBC (Bld) [#/Vol] 5.8 10*3/uL Normal 4.4-11.0 [facility] Comment on above: Performed By: #### L 100.0500, L501.9985, L500.4100, L500.2500 #### [facility] [address] [place], [address] Hemoglobin A1con 09-12-2023 HbA1c (Bld) [Mass fraction] 6.3 % High 3.8-5.6 [facility] Comment on above: Result Comment: Norm al < 5.7 % Prediabetic 5.7 - 6.4 % Diabetic >or= 6.5 % Please note range changes. Performed By: #### L 501.8100, L500.4100, L100.0500 #### [facility] [address] [place], [address] Lipid Profileon 09-12-2023 Cholesterol [Mass/Vol] 103 mg/dL Normal 200 [facility] Comment on above: Order Comment: 107-1 Result Comment: <200 mg/dL Desirable 200-240 mg/dL Borderline >240 mg/dL High Risk Performed By: #### L 100.0500, L501.9985, L500.4100, L500.2500 #### [facility] [address] [place], [address] Cholesterol in HDL [Mass/Vol] 36 mg/dL Low [facility] Comment on above: Order Comment: 107-1 Result Comment: The drugs N-Acetylcysteine and Metamizole may falsely depress this assay. Reference Range HDL <40 mg/dL Low HDL Cholesterol HDL >or= 60 mg/dL High HDL Cholesterol Performed By: #### L 100.0500, L501.9985, L500.4100, L500.2500 #### [facility] [address] [place], [address] Cholesterol in LDL [Mass/Vol] 46 mg/dL Normal 0-130 [facility] Comment on above: Order Comment: - Performed By: #### L 100.0500, L501.9985, L500.4100, L500.2500 #### [facility] [address] [place], [address] Cholesterol in VLDL [Mass/Vol] 21 mg/dL Normal 5-40 [facility] Comment on above: Order Comment: -1 Performed By: #### L 100.0500, L501.9985, L500.4100, L500.2500 #### [facility] [address] [place], [address] Triglyceride [Mass/Vol] 107 mg/dL Normal [facility] Comment on above: Order Comment: 107-1 Result Comment: The drugs N-Acetylcysteine and Metamizole may falsely depress this assay. Serum Triglycerides Reference Interval Normal <150 mg/dL Borderline high 150 - 199 mg/dL High 200 - 499 mg/dL Very High > or = 500 mg/dL Performed By: #### L 100.0500, L501.9985, L500.4100, L500.2500 #### [facility] [address] [place], [address] No Panel Informationon 09-05 Julissa Taylor DO 09/06/2023 3:16 PM Debridement Wound/Incision 08/23/23 Venous Ulcer Toe- second Right Performed by: Julissa Taylor DO Authorized by: Julissa Taylor, Consent Consent obtained? verbal Consent given by: patient Risks discussed? procedural risks discussed Immediately prior to the procedure a time out was called and the performing provider verified the correct patient, procedure, equipment, cell support operator, and site/side marked as required. Debridement Details Performed by: physician Debridement type: surgical Level of debridement: subcutaneous tissue Pain control: lidocaine 2% Pain control administration type: topical Pre-debridement measurements Length (cm): 1.8 Width (cm): 2.5 Depth (cm): 0.2 Surface Area (cm^2): 4.5 Post-debridement measurements Length (cm): 1.8 Width (cm): 2.5 Depth (cm): 0.3 Percent debrided: 100% Surface Area (cm^2): 4.5 Area Debrided (cm^2): 4.5 Volume (cm^3): 1.35 Tissue and other material debrided: dermis, epidermis and subcutaneous tissue Devitalized tissue debrided: biofilm and slough Instrument(s) utilized: curette Bleeding: small Hemostasis obtained with: pressure Procedural pain (0-10): 1 Post-procedural pain: 0 Response to treatment: procedure was tolerated well [facility] Julissa Taylor DO 09/06/2023 3:16 PM Debridement Wound/Incision 08/23/23 Venous Ulcer Toe - third Right Performed by: Julissa Taylor DO Authorized by: Julissa Taylor, Consent Consent obtained? verbal Consent given by: patient Risks discussed? procedural risks discussed Immediately prior to the procedure a time out was called and the performing provider verified the correct patient, procedure, equipment, cell support operator, and site/side marked as required. Debridement Details Performed by: physician Debridement type: surgical Level of debridement: subcutaneous tissue Pain control: lidocaine 2% Pain control administration type: topical Pre-debridement measurements Length (cm): 0.9 Width (cm): 0.9 Depth (cm): 0.2 Surface Area (cm^2): 0.81 Post-debridement measurements Length (cm): 1 Width (cm): 1 Depth (cm): 0.3 Percent debrided: 100% Surface Area (cm^2): 1 Area Debrided (cm^2): 1 Volume (cm^3): 0.3 Tissue and other material debrided: dermis, epidermis and subcutaneous tissue Devitalized tissue debrided: biofilm and slough Instrument(s) utilized: curette Bleeding: small Hemostasis obtained with: pressure Procedural pain (0-10): 1 Post-procedural pain: 0 Response to treatment: procedure was tolerated well [facility] Julissa Taylor DO 09/06/2023 3:16 PM Debridement Wound/Incision 08/30/23 Skin Tear Calf Right Performed by: Julissa Taylor DO Authorized by: Julissa Taylor DO Consent Consent obtained? verbal Consent given by: patient Risks discussed? procedural risks discussed Immediately prior to the procedure a time out was called and the performing provider verified the correct patient, procedure, equipment, cell support operator, and site/side marked as required. Debridement Details Performed by: physician Debridement type: surgical Level of debridement: subcutaneous tissue Pain control: lidocaine 2% Pain control administration type: topical Pre-debridement measurements Length (cm): 0.6 Width (cm): 0.1 Depth (cm): 0.1 Surface Area (cm^2): 0.06 Post-debridement measurements Length (cm): 0.6 Width (cm): 0.3 Depth (cm): 0.2 Percent debrided: 100% Surface Area (cm^2): 0.18 Area Debrided (cm^2): 0.18 Volume (cm^3): 0.04 Tissue and other material debrided: subcutaneous tissue Devitalized tissue debrided: biofilm and slough Instrument(s) utilized: curette Bleeding: small Hemostasis obtained with: pressure Procedural pain (0-10): 1 Post-procedural pain: 0 Response to treatment: procedure was tolerated well [facility] [employer] PATINSon 09-06-2023 PATINS Return Appointment i n: 1 week - Should you experience any significant changes in your wound(s) or have any questions regarding your home care instructions please contact the wound center at [phone] If after regular business hours, please call your family doctor or local emergency room. Edema Control: Extremity Option: right lower leg Elevate legs to the level of the heart or above for 30 minutes daily and/or when sitting Right lower leg - Multilayer Compression Therapy- 3 layers: Do not get legs with compression wrap wet. If wraps seem too tight, elevate legs above level of heart for one hour. If no relief, call the wound center. , Unna Boot: Do not remove Unna Boot. Keep dry. If pain or swelling or discoloration of toes noted, elevate legs above level of heart for 1 hour. If no relief, call the center. If unable to reach center, remove boot and keep leg elevated until contact with center can be made. Left lower leg - Apply Single Layer Tubigrip - (on am/off pm) Additional Orders/Instructions: Follow diet per physicians instructions - such as increasing protein intake to promote wound healing. Please begin including a protein supplement/shake to patient's diet to help with wound healing Nursing Care Facility: [facility] Wound Treatment: Wound: right toes & lower leg Dressing Frequency: Keep dressing in place all week Wound Cleansing: May shower with protection - Protect wound and dressing with water repellant cover/cast cover (e.g., large plastic bag) which can be obtained at [facility] and may take shower. Primary Dressing: Collagen Ag 2x2 Secondary Dressing: Calcium Alginate 4x4 & hydralock Secure With: Kerlex Roll gauze 4, Silk Tape 1 Compression: Unna boot & multilayer compression wrap - 3 layers (cover toes) [facility] No Panel Informationon 08-29 Julissa Taylor DO 08/30/2023 2:41 PM Debridement Wound/Incision 08/23/23 Venous Ulcer Leg Right;Circumferential Performed by: Julissa Taylor DO Authorized by: Julissa Taylor, Consent Consent obtained? verbal Consent given by: patient Risks discussed? procedural risks discussed Immediately prior to the procedure a time out was called and the performing provider verified the correct patient, procedure, equipment, cell support operator, and site/side marked as required. Debridement Details Performed by: physician Debridement type: surgical Level of debridement: subcutaneous tissue Pain control: lidocaine 2% Pain control administration type: topical Pre-debridement measurements Length (cm): 2.5 Width (cm): 1.5 Depth (cm): 0.1 Surface Area (cm^2): 3.75 Post-debridement measurements Length (cm): 2.5 Width (cm): 2 Depth (cm): 0.2 Percent debrided: 100% Surface Area (cm^2): 5 Area Debrided (cm^2): 5 Volume (cm^3): 1 Tissue and other material debrided: dermis, epidermis and subcutaneous tissue Devitalized tissue debrided: biofilm and slough Instrument(s) utilized: curette Bleeding: small Hemostasis obtained with: pressure Procedural pain (0-10): 1 Post-procedural pain: 0 Response to treatment: procedure was tolerated well [employer] [facility] PATINSon 08-30-2023 PATINS Return Appointment i n: 1 week - Should you experience any significant changes in your wound(s) or have any questions regarding your home care instructions please contact the wound center at [phone] If after regular business hours, please call your family doctor or local emergency room. Edema Control: Extremity Option: right lower leg Elevate legs to the level of the heart or above for 30 minutes daily and/or when sitting Right lower leg - Multilayer Compression Therapy- 3 layers: Do not get legs with compression wrap wet. If wraps seem too tight, elevate legs above level of heart for one hour. If no relief, call the wound center. , Unna Boot: Do not remove Unna Boot. Keep dry. If pain or swelling or discoloration of toes noted, elevate legs above level of heart for 1 hour. If no relief, call the center. If unable to reach center, remove boot and keep leg elevated until contact with center can be made. Left lower leg - Apply Single Layer Tubigrip - (on am/off pm) Additional Orders/Instructions: Follow diet per physicians instructions - such as increasing protein intake to promote wound healing. Please begin including a protein supplement/shake to patient's diet to help with wound healing Nursing Care Facility: [facility] Wound Treatment: Wound: right toes & lower leg Dressing Frequency: Keep dressing in place all week Wound Cleansing: May shower with protection - Protect wound and dressing with water repellant cover/cast cover (e.g., large plastic bag) which can be obtained at [facility] and may take shower. Primary Dressing: Collagen Ag 2x2 Secondary Dressing: Calcium Alginate 4x4 & hydralock Secure With: Kerlex Roll gauze 4, Silk Tape 1 Compression: Unna boot & multilayer compression wrap - 3 layers (cover toes) Normal [facility] PATINSon 08-23-2023 PATINS Return Appointment i n: 1 week - Should you experience any significant changes in your wound(s) or have any questions regarding your home care instructions please contact the wound center at [phone] If after regular business hours, please call your family doctor or local emergency room. Edema Control: Extremity Option: right lower leg Elevate legs to the level of the heart or above for 30 minutes daily and/or when sitting Right lower leg - Multilayer Compression Therapy- 3 layers: Do not get legs with compression wrap wet. If wraps seem too tight, elevate legs above level of heart for one hour. If no relief, call the wound center. , Unna Boot: Do not remove Unna Boot. Keep dry. If pain or swelling or discoloration of toes noted, elevate legs above level of heart for 1 hour. If no relief, call the center. If unable to reach center, remove boot and keep leg elevated until contact with center can be made. Left lower leg - Apply Single Layer Tubigrip - (on am/off pm) Additional Orders/Instructions: Follow diet per physicians instructions - such as increasing protein intake to promote wound healing. Please begin including a protein supplement/shake to patient's diet to help with wound healing Nursing Care Facility: [facility] Wound Treatment: Wound: right toes & lower leg Dressing Frequency: Keep dressing in place all week Wound Cleansing: May shower with protection - Protect wound and dressing with water repellant cover/cast cover (e.g., large plastic bag) which can be obtained at [facility] and may take shower. Primary Dressing: Collagen Ag 2x2 Secondary Dressing: Calcium Alginate 4x4 & hydralock Secure With: Kerlex Roll gauze 4, Silk Tape 1 Compression: Unna boot & multilayer compression wrap - 3 layers (cover toes) Normal [facility] Progress Noteon 08-23-[address] [facility] [address] [facility] [address] Loc: [phone] Wound Care Visit - New Patient Progress Note CHIEF COMPLAINT: Wound Care HISTORY OF PRESENT ILLNESS: The patient is a 62 y.o. male arrives with wounds of R foot and R lower leg. History of venous insufficiency. Has had similar in past. PAST MEDICAL HISTORY Past Medical History: Diagnosis Date Anxiety Ataxia Atherosclerosis Bipolar 1 disorder (HCC) Chronic migraine w/o aura, not intractable, w/o stat migr Chronic pain Chronic ulcer of left calf (HCC) Concussion with loss of consciousness, with loc of unspecified duration, sequela (HCC) Constipation Contracture, right hand Depression Difficulty walking Dorsopathy Dysphagia Dysphonia Edema GERD (gastroesophageal reflux disease) Headache Hemiplegia (CMS/HCC) (HCC) affecting right dominant side History of pancreatitis 10/28/2022 Hyperlipidemia Hypertension Hypokalemia Insomnia Intracranial injury (HCC) Lack of coordination Mixed receptive-expressive language disorder Muscle weakness Neuropathy 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) Pancreatic abscess 07/14/2022 Pancreatitis PVD (peripheral vascular disease) (HCC) Reduced mobility Repeated falls SIRS (systemic inflammatory response syndrome) (HCC) TBI (traumatic brain injury) (HCC) Venous insufficiency PAST SURGICAL HISTORY Past Surgical History: Procedure Laterality Date CHOLECYSTECTOMY 10/28/2022 Zografakis; lap CRANIOTOMY TONSILLECTOMY Medications reviewed Medical history reviewed Allergies reviewed Current Medications: Current Outpatient Medications: acetaminophen (Tylenol) 325 MG tablet, Take 650 mg by mouth every 6 hours as needed for mild pain (1-3) (elevated temp)., Disp: , Rfl: albuterol (2.5 MG/3ML) 0.083% nebulizer solution, Take by nebulization every 4 hours as needed for wheezing., Disp: , Rfl: ammonium lactate (Lac-Hydrin) 12 % lotion, Apply topically Nightly. To bilat. legs, Disp: , Rfl: ARIPiprazole (Abilify) 5 MG tablet, Take 5 mg by mouth daily., Disp: , Rfl: atorvastatin (Lipitor) 40 MG tablet, Nightly., Disp: , Rfl: bisacodyl (Dulcolax) 10 MG suppository, Insert 10 mg into the rectum Daily as needed for constipation., Disp: , Rfl: bisacodyl (Dulcolax) 5 MG EC tablet, Take 5 mg by mouth Daily as needed for constipation. Do not crush, chew, or split., Disp: , Rfl: cholecalciferol (Vitamin D3) 1.25 MG (34735 UT) tablet, Take by mouth 1 (one) time per week. Mondays, Disp: , Rfl: cloNIDine (Catapres) 0.1 MG tablet, Take 0.1 mg by mouth every 12 hours as needed for high blood pressure (SBP >180, DBP >100)., Disp: , Rfl: docusate sodium (Colace) 100 MG capsule, Take 100 mg by mouth daily., Disp: , Rfl: Erenumab-aooe (AIMOVIG, 140 MG DOSE, SC), Inject under the skin., Disp: , Rfl: famotidine (Pepcid) 20 MG tablet, Take 20 mg by mouth daily., Disp: , Rfl: fluticasone (Flonase) 50 MCG/ACT nasal spray, Administer 2 sprays into each nostril daily. Shake gently. Before first use, prime pump. After use, clean tip and replace cap., Disp: , Rfl: gabapentin (Neurontin) 300 MG capsule, Take 300 mg by mouth 2 times daily., Disp: , Rfl: Glucosamine 500 MG capsule, Take by mouth 2 times daily., Disp: , Rfl: guaiFENesin (Mucinex) 600 MG 12 hr tablet, Take 1,200 mg by mouth 2 times daily. Do not crush, chew, or split., Disp: , Rfl: ketoconazole (NIZOral) 2 % cream, Apply 1 Application topically daily. Apply to brow and face, Disp: , Rfl: lisinopril 20 MG tablet, Take by mouth daily., Disp: , Rfl: magnesium hydroxide (Milk of Magnesia) 400 MG/5ML suspension, Take 30 mL by mouth Nightly as needed for constipation., Disp: , Rfl: melatonin 5 MG tablet, Take 10 mg by mouth Nightly., Disp: , Rfl: metoprolol tartrate (Lopressor) 25 MG tablet, Take 25 mg by mouth 2 times daily., Disp: , Rfl: miconazole (Micotin) 2 % powder, Apply topically 2 times daily., Disp: , Rfl: ondansetron (Zofran) 4 MG tablet, Take by mouth., Disp: , Rfl: Polyethylene Glycol 3350 (MIRALAX PO), Take by mouth., Disp: , Rfl: potassium chloride (Klor-Con) 20 MEQ packet, Take 20 mEq by mouth 2 times daily., Disp: , Rfl: potassium chloride CR (Klor-Con M20) 20 MEQ ER tablet, Take 20 mEq by mouth daily., Disp: , Rfl: spironolactone (Aldactone) 100 MG tablet, Take 100 mg by mouth daily., Disp: , Rfl: tamsulosin (Flomax) 0.4 MG 24 hr capsule, Take 0.4 mg by mouth daily., Disp: , Rfl: traZODone (Desyrel) 50 MG tablet, Take 50 mg by mouth Nightly., Disp: , Rfl: triamcinolone (Kenalog) 0.1 % cream, Apply topically daily. Apply to brow and face, Disp: , Rfl: venlafaxine XR (Effexor XR) 75 MG 24 hr capsule, , Disp: , Rfl: Ventolin HFA 108 (90 Base) MCG/ACT inhaler, , Disp: , Rfl: aspirin 81 MG EC tablet, Take 81 mg by mouth daily., Disp: , Rfl: divalproex sprinkle (De (more content not included)... Normal [facility] Basophil percentageOrdered B y: Demetrius Fenton on 07-16-2023 Basophil percentage 25-50 SEEN /hpf 0-5 [facility] Bilirubin Test strip Ql (U)O rdered By: Demetrius Fenton on 07-16-2023 Bilirubin Ql (U) Negative Negative [facility] Ketones Test strip Ql (U)Ord ered By: Demetrius Fenton on 07-16-2023 Ketones Ql (U) 5 mg/dl Negative [facility] Mucus LM Ql (Urine sed)Order ed By: Demetrius Fenton on 07-16-2023 Mucus Ql (Urine sed) 0 SEEN /hpf [facility] Nitrite Test strip Ql (U)Ord ered By: Demetrius Fenton on 07-16-2023 Nitrite Ql (U) Positive Negative [facility] No Panel InformationOrdered By: Demetrius Fenton on 07-16-2023 Urine RBC 0 SEEN /hpf 0-5 [facility] Protein Test strip Ql (U)Ord ered By: Demetrius Fenton on 07-16-2023 Protein Ql (U) Negative Negative [facility] Squamous epithelial cells de tection in urine sediment by light microscopyOrdered By: Demetrius Fenton on 07-16-2023 Epithelial cells.squamous LM Ql (Urine sed) 0-5 SEEN /hpf 0-5 [facility] Urine blood detectionOrdered By: Demetrius Fenton on 07-16-2023 RBC Ql (U) Negative Negative [facility] Urine clarityOrdered By: Miriam Fenton on 07-16-2023 Clarity (U) Sl. Cloudy Clear [facility] Urine color determinationOrd ered By: Demetrius Fenton on 07-16-2023 Color (U) Yellow Yellow [facility] Urine glucose detectionOrder ed By: Demetrius Fenton on 07-16-2023 Glucose Ql (U) Normal mg/dl Normal [facility] Urine leukocyte esterase det ection by dipstickOrdered By: Demetrius Fenton on 07-16-2023 Leukocyte esterase Test strip Ql (U) 500 /ul Negative [facility] Urine pHOrdered By: Demetrius astorga on 07-16-2023 pH (U) 6.0 [pH] 5.0 - 8.0 [facility] Urine sediment bacteria coun t by microscopy (number/high power field)Ordered By: Demetrius Fenton on 07-16-2023 Bacteria LM.HPF (Urine sed) [#/Area] 2 /[HPF] None Seen [facility] Urine specific gravity measu rementOrdered By: Demetrius Fenton on 07-16-2023 Specific gravity (U) [Rel density] 1.015 1.002-1.030 [facility] Urine urobilinogen measureme ntOrdered By: Demetrius Fenton on 07-16-2023 Urobilinogen Ql (U) 1 mg/dl Normal [facility] Bacteria identified Cx Nom ( Wound)Ordered By: Demetrius Fenton on 06-28-2023 Wound Culture Meth. resistant Stap h. aureus [facility] Wound Culture Enterococcus faecalis [facility] Wound Culture Acinetobacter junii [facility] Wound Culture Pseudomonas aeruginosa [facility] Gram stain for investigation of transfusion reactionOrdered By: Demetrius Fenton on 06-28-2023 Microscopic observation Gram stain Nom (Unsp spec) [facility] Bacteria identified Cx Nom ( Wound)Ordered By: Demetrius Fenton on 06-27-2023 Wound Culture Pseudomonas aeruginosa [facility] Wound Culture Enterococcus faecalis [facility] Gram stain for investigation of transfusion reactionOrdered By: Demetrius Fenton on 06-27-2023 Microscopic observation Gram stain Nom (Unsp spec) [facility] BLOOD CULTUREon 06-23-2023 Bacteria identified Cx Nom (Bld) BLOOD CULTURE Reference No growth at 5 days ORDER COMMENTS: Blood Collection Site: Left Forearm [ S = SUSCEPTIBLE R = RESISTANT I = INTERMEDIATE S-DD = Susceptible-dose dependent NS = Non-susceptible NO = No Interpretation ] Normal [facility] Comment on above: Performed By: #### L [id number] #### Take Off Man: SHARLA FINNEY ([id number]) [facility] ([facility]) [address] [place] [address] CT ABDOMEN PELVIS W CONTRAST on 06-23-2023 CT ABDOMEN PELVIS W CONTRAST Patient Name: MOISES MADRID : 1960 Exam Date/Time: 06/23/2023 00:08 Procedure: CT ABDOMEN PELVIS W CONTRAST Ordering Provider: SOLORZANO MARGARET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 receptive-expressive language disorder Muscle weakness Neuropathy 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) Pancreatic abscess 07/14/2022 Pancreatitis PVD (peripheral vascular disease) (HCC) Reduced mobility Repeated falls SIRS (systemic inflammatory response syndrome) (HCC) TBI (traumatic brain injury) ([facility]) Venous insufficiency SURGICAL HISTORY Past Surgical History: Procedure Laterality Date CHOLECYSTECTOMY 10/28/2022 Zografakis; lap CRANIOTOMY TONSILLECTOMY CURRENT MEDICATIONS Discharge Medication List as of 06/23/2023 1:05 AM CONTINUE these medications which have NOT CHANGED Details acetaminophen (Tylenol) 325 MG tablet Take 650 mg by mouth every 6 hours as needed for mild pain (1-3) (elevated temp)., Historical Med albuterol (2.5 MG/3ML) 0.083% nebulizer solution Take by nebulization every 4 hours as needed for wheezing., Historical Med ammonium lactate (Lac-Hydrin) 12 % lotion Apply topically Nightly. To bilat. legs, Starting Mon06/24/2022, Historical Med ARIPiprazole (Abilify) 5 MG tablet Take 5 mg by mouth daily., Historical Med aspirin 81 MG EC tablet Take 81 mg by mouth daily., Historical Med atorvastatin (Lipitor) 40 MG tablet Nightly., Starting Mon06/24/2022, Historical Med bisacodyl (Dulcolax) 10 MG suppository Insert 10 mg into the rectum Daily as needed for constipation., Historical Med bisacodyl (Dulcolax) 5 MG EC tablet Take 5 mg by mouth Daily as needed for constipation. Do not crush, chew, or split., Historical Med cholecalciferol (Vitamin D3) 1.25 MG (91643 UT) tablet Take by mouth 1 (one) time per week. Mondays, Historical Med cloNIDine (Catapres) 0.1 MG tablet Take 0.1 mg by mouth every 12 hours as needed for high blood pressure (SBP >180, DBP >100)., Starting Mon06/24/2022, Historical Med divalproex sprinkle (Depakote Sprinkle) [address] capsule Take 2 capsules (250 mg) by mouth in the morning and 2 capsules (250 mg) before bedtime., Starting Mon06/23/2022, Until Mon06/23/2023, No Print docusate sodium (Colace) 100 MG capsule Take 100 mg by mouth daily., Historical Med famotidine (Pepcid) 20 MG tablet Take 20 mg by mouth daily., Historical Med gabapentin (Neurontin) 300 MG capsule Take 300 mg by mouth 2 times daily., Starting Mon06/24/2022, Historical Med Glucosamine 500 MG capsule Take by mouth 2 times daily., Historical Med guaiFENesin (Mucinex) 600 MG 12 hr tablet Take 1 tablet (600 mg) by mouth 2 times daily. Do not crush (more content not included)... Normal [facility] ED Provider Note Emergency Department Encounter [facility] ED Patient: Moises Madrid : 1960 Date of Evaluation: 06/22/2023 ED Supervising Physician: Fred Holloway MD I independently examined and evaluated Moises Madrid. This will serve as my Supervisory note as the clinician oncology of record and shared attestation. I did perform a substantive portion of the visit including all aspects of the Medical Decision Making. I wore appropriate PPE for the entirety of this encounter. In brief, Moises Madrid is a 62 y.o. male that presents to the emergency department with concern of right-sided abdominal pain starting this morning. He is unsure when his last bowel movement is although not having any nausea or vomiting. Reports history of traumatic brain injury as well as hemiparesis of the right side which she is working with PT and OT 4. He has had some redness of his right lower extremity although unsure how long it has been ongoing for. He has had previous gallbladder removal although appendix is still present. Denies any dysuria or hematuria Focused exam: Patient does have erythema of his right greater than left lower extremity up to the knee. Has decreased movement of his right upper and lower extremity. There is tenderness noted in the right upper and right lower quadrant without any peritoneal signs Brief ED course/MDM: EMERGENCY DEPARTMENT COURSE and DIFFERENTIAL DIAGNOSIS/MDM: Vitals: Vitals: 06/22/23 2152 BP: 125/81 BP Location: Left arm Patient Position: Sitting Pulse: 70 Temp: 36.6 ?C (97.9 ?F) TempSrc: Oral SpO2: 99% Height: 1.778 m (5' 10) The patient presented with a chief complaint of with concern of right-sided abdominal pain. The differential diagnosis associated with this patient's presentation includes appendicitis, bowel obstruction, UTI, cellulitis, musculoskeletal strain. Our workup consisted of ordering/reviewing order blood work, CT imaging along with pain control. Pending workup will reevaluate to see if he requires admission for any other intra-abdominal abnormalities versus for his lower extremity cellulitis. If there is no other abnormalities noted as blood work looks fairly reassuring may be safe for discharge with outpatient antibiotics for cellulitis Diagnoses as of 06/23/23 1812 Cellulitis of right lower extremity Right lower quadrant abdominal pain Constipation, unspecified constipation type Diagnostic tests considered but not performed: External records reviewed: Diagnostics interpreted by me: Discussions with other clinicians: Chronic conditions impacting care: Social determinants of health affecting care: ED Medications managed: Medications ketorolac (Toradol) injection 15 mg (has no administration in time range) Prescription drugs considered: Disposition and plan: Right lower quadrant abdominal pain, right lower extremity cellulitis, discharge All diagnostic, treatment, and disposition decisions were made by myself in conjunction with the Resident/SKY. I also supervised castro portions of any procedures performed by the Resident/SKY. For all further details of the patient's emergency department visit, please see their documentation. (Comment: Please note this report has been produced using speech recognition software and may contain errors related to that system including errors in grammar, punctuation, and spelling, as well as words and phrases that may be inappropriate. If there are any questions or concerns please feel free to contact the dictating provider for clarification.) Fred Holloway MD Acute Care [facility] Fred Holloway MD 06/23/23 1818 Normal [facility] LIPASEon 06-22-2023 Lipase [Catalytic activity/Vol] 138 U/L Normal 23-300 [facility] Comment on above: Performed By: #### L [id number] #### Take Off Man: SHARLA FINNEY ([phone]) [facility] [address] [place] [address] Laboratory - Chemistry and C hemistry - challengeon 06-22-2023 Troponin I.cardiac [Mass/Vol] ng/mL NINF - 0.034 ng/mL [facility] Lipase [Catalytic activity/Vol] 138 U/L 23 - 300 U/L [facility] Lipase [Catalytic activity/V ol]on 06-22-2023 Interpretation and review of laboratory results Normal [facility] No Panel Informationon 06-21 [facility] Progress Noteon 06-22-2023 Progress Note Culture is positive but resistant to antibiotics prescribed at discharge. Positive for Pseudomonas. Antibiotic needs to be changed to ciprofloxacin 500 mg twice daily for 7 days, please contact patient and inform them of the results and send in prescription. Normal [facility] Progress Note Culture result reviewed. Awaiting sensitivity results Normal [facility] TROPONIN Ion 06-22-2023 Troponin I.cardiac [Mass/Vol] ng/mL Normal <0.034 [facility] Comment on above: Result Comment: [facility] [place] COMMENTS: Patients with high levels of Biotin oral intake (ie >5 mg/day) may have falsely decreased Troponin levels. Performed By: #### L [id number] #### Take Off Man: SHARLA FINNEY ([id number]) [facility] ([facility]) [address] [place] [address] Troponin I.cardiac [Mass/Vol ]on 06-22-2023 Interpretation and review of laboratory results Normal [facility] Patients with high levels of Biotin oral intake (ie >5 mg/day) may have falsely decreased Troponin levels. [facility] Basophil percentageOrdered B y: Demetrius Fenton on 06-12-2023 Chloride [Moles/Vol] 105 mmol/L 98-107 [facility] Glucose [Mass/Vol] 118 mg/dL 74-106 [facility] Comment on above: Fasting Glucose resu lt from 100 to 125 mg/dL suggests IMPAIRED HOMEOSTASIS per A.D.A. criteria. Hemoglobin (Bld) [Mass/Vol] 15.1 g/dL 13.0-16.5 [facility] Potassium [Moles/Vol] 4.3 mmol/L 3.5-5.1 [facility] Sodium [Moles/Vol] 136 mmol/L 136-145 [facility] WBC (Bld) [#/Vol] 7.2 10*3/uL 4.4-11.0 [facility] Determination of erythrocyte mean corpuscular volume (MCV)Ordered By: Demetrius Fenton on 06-12-2023 MCV (RBC) [Entitic vol] 89.3 fL 80-94 [facility] Erythrocyte distribution wid th ratioOrdered By: Demetrius Fenton on 06-12-2023 Erythrocyte distribution width (RBC) [Ratio] 13.2 % 11.6-14.6 [facility] Erythrocyte distribution wid th standard deviationOrdered By: Demetrius Fenton on 06-12-2023 Erythrocyte distribution width (RBC) [Entitic vol] 41.8 fL 35.1-43.9 [facility] Hematocrit Auto (Bld) [Volum e fraction]Ordered By: Demetrius Fenton on 06-12-2023 Hematocrit (Bld) [Volume fraction] 45.2 % 40-54 [facility] Laboratory - Chemistry and C hemistry - challengeOrdered By: Demetrius Fenton on 06-12-2023 CO2 [Moles/Vol] 27.0 mmol/L 21.0-32.0 [facility] Urea nitrogen/Creatinine [Mass ratio] 15.7 mg/mg 10-20 [facility] Laboratory - Hematology and Cell countsOrdered By: Demetrius Fenton on 06-12-2023 MCH (RBC) [Entitic mass] 29.8 pg 27.0-32.0 [facility] MCHC (RBC) [Mass/Vol] 33.4 g/dL 32-36 [facility] Platelet mean volume (Bld) [Entitic vol] 11.2 fL 6.2-12.0 [facility] Platelets (Bld) [#/Vol] 154 10*3/uL 150-450 [facility] No Panel InformationOrdered By: Demetrius Fenton on 06-12-2023 Estimated GFR (MDRD) Amer 90 mL/min >60 [facility] Comment on above: GFR Calc Estimated GFR (MDRD) Non-Af Amer 74 mL/min >60 [facility] Comment on above: Non- GFR Calc RBC Auto (Bld) [#/Vol]Ordere d By: Demetrius Fenton on 06-12-2023 RBC (Bld) [#/Vol] 5.06 10*6/uL 4.6-6.2 [facility] Serum or plasma calcium roseanne urement (mass/volume)Ordered By: Demetrius Fenton on 06-12-2023 Calcium [Mass/Vol] 9.5 mg/dL 8.5-10.1 [facility] Serum or plasma creatinine m easurement (mass/volume)Ordered By: Demetrius Fenton on 06-12-2023 Creatinine [Mass/Vol] 1.08 mg/dL 0.70-1.30 [facility] Comment on above: The validity of the calculated GFR & GFRAA in patients over 70 years has not been determined. Clinical correlation is essential. Serum or plasma urea nitroge n measurement (mass/volume)Ordered By: Demetrius Fenton on 06-12-2023 Urea nitrogen [Mass/Vol] 17 mg/dL 7-18 [facility] Thin prep Papanicolaou smear with manual screeningOrdered By: Demetrius Fenton on 06-12-2023 Thin prep Papanicolaou smear with manual screening 4 5-15 [facility] Whole blood hemoglobin A1c/t otal hemoglobin ratio (mass fraction)Ordered By: Demetrius Fenton on 06-12-2023 HbA1c (Bld) [Mass fraction] 6.5 % 3.8-5.6 [facility] Comment on above: Normal < 5.7 % Predi abetic 5.7 - 6.4 % Diabetic >or= 6.5 % Please note range changes. Basophil percentageOrdered B y: Demetrius Fenton on 03-14-2023 Bilirubin [Mass/Vol] 0.90 mg/dL 0.20-1.00 [facility] Comment on above: For patients on eltr ombopag therapy, use of Dimension Moose TBIL is not recommended. Chloride [Moles/Vol] 104 mmol/L 98-107 [facility] Glucose [Mass/Vol] 131 mg/dL 74-106 [facility] Comment on above: Fasting Glucose resu lt greater than or equal to 126 mg/dL suggests DIABETES MELLITUS per A.D.A. criteria. Potassium [Moles/Vol] 4.8 mmol/L 3.5-5.1 [facility] Protein [Mass/Vol] 6.9 g/dL 6.4-8.2 [facility] Sodium [Moles/Vol] 137 mmol/L 136-145 [facility] WBC (Bld) [#/Vol] 6.4 10*3/uL 4.4-11.0 [facility] Blood erythrocytes count (nu mber/volume)Ordered By: Demetrius Fenton on 03-14-2023 RBC (Bld) [#/Vol] 4.77 10*6/uL 4.6-6.2 [facility] Blood hemoglobin measurement (mass/volume)Ordered By: Demetrius Fenton on 03-14-2023 Hemoglobin (Bld) [Mass/Vol] 14.3 g/dL 13.0-16.5 [facility] Blood platelet mean volumeOr dered By: Demetrius Fenton on 03-14-2023 Platelet mean volume (Bld) [Entitic vol] 11.3 fL 6.2-12.0 [facility] Determination of erythrocyte mean corpuscular volume (MCV)Ordered By: Demetrius Fenton on 03-14-2023 MCV (RBC) [Entitic vol] 90.8 fL 80-94 [facility] Hematocrit Auto (Bld) [Volum e fraction]Ordered By: Demetrius Fenton on 03-14-2023 Hematocrit (Bld) [Volume fraction] 43.3 % 40-54 [facility] Laboratory - Chemistry and C hemistry - challengeOrdered By: Demetrius Fenton on 03-14-2023 ALP [Catalytic activity/Vol] 85 U/L 45-117 [facility] ALT [Catalytic activity/Vol] 36 U/L 16-61 [facility] CO2 [Moles/Vol] 29.0 mmol/L 21.0-32.0 [facility] Globulin (S) [Mass/Vol] 3.6 g/dL 2.2-4.2 [facility] Urea nitrogen/Creatinine [Mass ratio] 19.6 mg/mg 10-20 [facility] Laboratory - Hematology and Cell countsOrdered By: Demetrius Fenton on 03-14-2023 Erythrocyte distribution width (RBC) [Entitic vol] 42.7 fL 35.1-43.9 [facility] Erythrocyte distribution width (RBC) [Ratio] 13.1 % 11.6-14.6 [facility] MCH (RBC) [Entitic mass] 30.0 pg 27.0-32.0 [facility] MCHC Auto (RBC) [Mass/Vol]Or dered By: Demetrius Fenton on 03-14-2023 MCHC (RBC) [Mass/Vol] 33.0 g/dL 32-36 [facility] No Panel InformationOrdered By: Demetrius Fenton on 03-14-2023 Estimated GFR (MDRD) Amer 91 mL/min >60 [facility] Comment on above: GFR Calc Estimated GFR (MDRD) Non-Af Amer 75 mL/min >60 [facility] Comment on above: Non- GFR Calc Valproic Acid (Depakene) Level 30 ug/mL 50-100 [facility] Platelets bldOrdered By: Miriam Fenton on 03-14-2023 Platelets (Bld) [#/Vol] 158 10*3/uL 150-450 [facility] Serum or plasma albumin roseanne urement (mass/volume)Ordered By: Demetrius Fenton on 03-14-2023 Albumin [Mass/Vol] 3.3 g/dL 3.2-5.0 [facility] Serum or plasma albumin/glob ulin mass ratioOrdered By: Demetrius Fenton on 03-14-2023 Albumin/Globulin [Mass ratio] 0.9 {ratio} 0.9-2.4 [facility] Serum or plasma calcium roseanne urement (mass/volume)Ordered By: Demetrius Fenton on 03-14-2023 Calcium [Mass/Vol] 8.7 mg/dL 8.5-10.1 [facility] Serum or plasma creatinine m easurement (mass/volume)Ordered By: Demetrius Fenton on 03-14-2023 Creatinine [Mass/Vol] 1.07 mg/dL 0.70-1.30 [facility] Comment on above: The validity of the calculated GFR & GFRAA in patients over 70 years has not been determined. Clinical correlation is essential. Serum or plasma urea nitroge n measurement (mass/volume)Ordered By: Demetrius Fenton on 03-14-2023 Urea nitrogen [Mass/Vol] 21 mg/dL 7-18 [facility] Thin prep Papanicolaou smear with manual screeningOrdered By: Demetrius Fenton on 03-14-2023 Thin prep Papanicolaou smear with manual screening 23 U/L 15-37 [facility] Thin prep Papanicolaou smear with manual screening 4 5-15 [facility] Basophil percentageOrdered B y: Demetrius Fenton on 03-13-2023 Cholesterol [Mass/Vol] 139 mg/dL <200 [facility] Comment on above: <200 mg/dL Desirable 200-240 mg/dL Borderline >240 mg/dL High Risk Triglyceride [Mass/Vol] 168 mg/dL <199 [facility] Comment on above: The drugs N-Acetylcy steine and Metamizole may falsely depress this assay.Serum Triglycerides Reference Interval Normal <150 mg/dL Borderline high 150 - 199 mg/dL High 200 - 499 mg/dL Very High > or = 500 mg/dL Serum or plasma cholesterol in HDL measurement (mass/volume)Ordered By: Demetrius Fenton on 03-13-2023 Cholesterol in HDL [Mass/Vol] 49 mg/dL >40 [facility] Comment on above: The drugs N-Acetylcy steine and Metamizole may falsely depress this assay. Reference Range HDL <40 mg/dL Low HDL Cholesterol HDL >or= 60 mg/dL High HDL Cholesterol Serum or plasma cholesterol in VLDL measurement (mass/volume)Ordered By: Demetrius Fenton on 03-13-2023 Cholesterol in VLDL [Mass/Vol] 34 mg/dL 5-40 [facility] Serum or plasma low density lipoprotein (LDL) cholesterol measurement (mass/volume)Ordered By: Demetrius Fenton on 03-13-2023 Cholesterol in LDL [Mass/Vol] 56 mg/dL 0-130 [facility] Basophil percentageOrdered B y: Demetrius Fenton on 02-09-2023 Bilirubin [Mass/Vol] 0.50 mg/dL 0.20-1.00 [facility] Comment on above: For patients on eltr ombopag therapy, use of Dimension Moose TBIL is not recommended. Chloride [Moles/Vol] 104 mmol/L 98-107 [facility] Glucose [Mass/Vol] 128 mg/dL 74-106 [facility] Comment on above: Fasting Glucose resu lt greater than or equal to 126 mg/dL suggests DIABETES MELLITUS per A.D.A. criteria. Potassium [Moles/Vol] 4.6 mmol/L 3.5-5.1 [facility] Protein [Mass/Vol] 7.2 g/dL 6.4-8.2 [facility] Sodium [Moles/Vol] 136 mmol/L 136-145 [facility] WBC (Bld) [#/Vol] 7.9 10*3/uL 4.4-11.0 [facility] Blood erythrocytes count (nu mber/volume)Ordered By: Demetrius Fenton on 02-09-2023 RBC (Bld) [#/Vol] 4.93 10*6/uL 4.6-6.2 [facility] Blood hemoglobin measurement (mass/volume)Ordered By: Demetrius Fenton on 02-09-2023 Hemoglobin (Bld) [Mass/Vol] 14.8 g/dL 13.0-16.5 [facility] Blood platelet mean volumeOr dered By: Demetrius Fenton on 02-09-2023 Platelet mean volume (Bld) [Entitic vol] 11.3 fL 6.2-12.0 [facility] Determination of erythrocyte mean corpuscular volume (MCV)Ordered By: Demetrius Fenton on 02-09-2023 MCV (RBC) [Entitic vol] 88.0 fL 80-94 [facility] Hematocrit Auto (Bld) [Volum e fraction]Ordered By: Demetrius Fenton on 02-09-2023 Hematocrit (Bld) [Volume fraction] 43.4 % 40-54 [facility] Laboratory - Chemistry and C hemistry - challengeOrdered By: Demetrius Fenton on 02-09-2023 ALP [Catalytic activity/Vol] 92 U/L 45-117 [facility] ALT [Catalytic activity/Vol] 31 U/L 16-61 [facility] CO2 [Moles/Vol] 26.0 mmol/L 21.0-32.0 [facility] Globulin (S) [Mass/Vol] 3.8 g/dL 2.2-4.2 [facility] Urea nitrogen/Creatinine [Mass ratio] 16.3 mg/mg 10-20 [facility] Laboratory - Hematology and Cell countsOrdered By: Demetrius Fenton on 02-09-2023 Erythrocyte distribution width (RBC) [Entitic vol] 41.9 fL 35.1-43.9 [facility] Erythrocyte distribution width (RBC) [Ratio] 13.2 % 11.6-14.6 [facility] MCH (RBC) [Entitic mass] 30.0 pg 27.0-32.0 [facility] MCHC Auto (RBC) [Mass/Vol]Or dered By: Demetrius Fenton on 02-09-2023 MCHC (RBC) [Mass/Vol] 34.1 g/dL 32-36 [facility] No Panel InformationOrdered By: Demetrius Fenton on 02-09-2023 Estimated GFR (MDRD) Amer 100 mL/min >60 [facility] Comment on above: GFR Calc Estimated GFR (MDRD) Non-Af Amer 83 mL/min >60 [facility] Comment on above: Non- GFR Calc Platelets bldOrdered By: Miriam Fenton on 02-09-2023 Platelets (Bld) [#/Vol] 193 10*3/uL 150-450 [facility] Serum or plasma albumin roseanne urement (mass/volume)Ordered By: Demetrius Fenton on 02-09-2023 Albumin [Mass/Vol] 3.4 g/dL 3.2-5.0 [facility] Serum or plasma albumin/glob ulin mass ratioOrdered By: Demetrius Fenton on 02-09-2023 Albumin/Globulin [Mass ratio] 0.9 {ratio} 0.9-2.4 [facility] Serum or plasma calcium roseanne urement (mass/volume)Ordered By: Demetrius Fenton on 02-09-2023 Calcium [Mass/Vol] 9.2 mg/dL 8.5-10.1 [facility] Serum or plasma creatinine m easurement (mass/volume)Ordered By: Demetrius Fenton on 02-09-2023 Creatinine [Mass/Vol] 0.98 mg/dL 0.70-1.30 [facility] Comment on above: The validity of the calculated GFR & GFRAA in patients over 70 years has not been determined. Clinical correlation is essential. Serum or plasma urea nitroge n measurement (mass/volume)Ordered By: Demetrius Fenton on 02-09-2023 Urea nitrogen [Mass/Vol] 16 mg/dL 7-18 [facility] Thin prep Papanicolaou smear with manual screeningOrdered By: Demetrius Fenton on 02-09-2023 Thin prep Papanicolaou smear with manual screening 20 U/L 15-37 [facility] Thin prep Papanicolaou smear with manual screening 6 5-15 [facility] Basophil percentageOrdered B y: Demetrius Fenton on 01-09-2023 Chloride [Moles/Vol] 104 mmol/L 98-107 [facility] Glucose [Mass/Vol] 169 mg/dL 74-106 [facility] Comment on above: Fasting Glucose resu lt greater than or equal to 126 mg/dL suggests DIABETES MELLITUS per A.D.A. criteria. Potassium [Moles/Vol] 4.1 mmol/L 3.5-5.1 [facility] Sodium [Moles/Vol] 139 mmol/L 136-145 [facility] WBC (Bld) [#/Vol] 6.8 10*3/uL 4.4-11.0 [facility] Blood erythrocytes count (nu mber/volume)Ordered By: Demetrius Fenton on 01-09-2023 RBC (Bld) [#/Vol] 4.61 10*6/uL 4.6-6.2 [facility] Blood hemoglobin measurement (mass/volume)Ordered By: Demetrius Fenton on 01-09-2023 Hemoglobin (Bld) [Mass/Vol] 13.6 g/dL 13.0-16.5 [facility] Blood platelet mean volumeOr dered By: Demetrius Fenton on 01-09-2023 Platelet mean volume (Bld) [Entitic vol] 11.8 fL 6.2-12.0 [facility] Determination of erythrocyte mean corpuscular volume (MCV)Ordered By: Demetrius Fenton on 01-09-2023 MCV (RBC) [Entitic vol] 90.7 fL 80-94 [facility] Hematocrit Auto (Bld) [Volum e fraction]Ordered By: Demetrius Fenton on 01-09-2023 Hematocrit (Bld) [Volume fraction] 41.8 % 40-54 [facility] Laboratory - Chemistry and C hemistry - challengeOrdered By: Demetrius Fenton on 01-09-2023 CO2 [Moles/Vol] 29.0 mmol/L 21.0-32.0 [facility] Urea nitrogen/Creatinine [Mass ratio] 19.3 mg/mg 10-20 [facility] Laboratory - Hematology and Cell countsOrdered By: Demetrius Fenton on 01-09-2023 Erythrocyte distribution width (RBC) [Entitic vol] 42.6 fL 35.1-43.9 [facility] [facility] Erythrocyte distribution width (RBC) [Ratio] 13.2 % 11.6-14.6 [facility] MCH (RBC) [Entitic mass] 29.5 pg 27.0-32.0 [facility] MCHC Auto (RBC) [Mass/Vol]Or dered By: Demetrius Fenton on 01-09-2023 MCHC (RBC) [Mass/Vol] 32.5 g/dL 32-36 [facility] No Panel InformationOrdered By: Demetrius Fenton on 01-09-2023 Estimated GFR (MDRD) Amer 89 mL/min >60 [facility] Comment on above: GFR Calc Estimated GFR (MDRD) Non-Af Amer 73 mL/min >60 [facility] Comment on above: Non- GFR Calc Prostate Specific Antigen Screen 0.59 ng/mL 0.00-4.00 [facility] Comment on above: This test was perfor med using the TPSA assay method for [employer] chemistry system. Values obtained with differentassay methods cannot be used interchangably.When changing PSA assays in the course of monitoring apatient, additional sequential testing should be carriedout to confirm baseline values. Platelets bldOrdered By: Miriam Fenton on 01-09-2023 Platelets (Bld) [#/Vol] 166 10*3/uL 150-450 [facility] Serum or plasma calcium roseanne urement (mass/volume)Ordered By: Demetrius Fenton on 01-09-2023 Calcium [Mass/Vol] 8.8 mg/dL 8.5-10.1 [facility] Serum or plasma creatinine m easurement (mass/volume)Ordered By: Demetrius Fenton on 01-09-2023 Creatinine [Mass/Vol] 1.09 mg/dL 0.70-1.30 [facility] Comment on above: The validity of the calculated GFR & GFRAA in patients over 70 years has not been determined. Clinical correlation is essential. Serum or plasma urea nitroge n measurement (mass/volume)Ordered By: Demetrius Fenton on 01-09-2023 Urea nitrogen [Mass/Vol] 21 mg/dL 7-18 [facility] Thin prep Papanicolaou smear with manual screeningOrdered By: Demetrius Fenton on 01-09-2023 Thin prep Papanicolaou smear with manual screening 6 5-15 [facility] No Panel InformationOrdered By: Gunnar Cummings on 01-02-2023 Prostate Specific Antigen Screen 0.62 ng/mL 0.00-4.00 [facility] Comment on above: This test was perfor med using the TPSA assay method [facility]. Values obtained with differentassay methods cannot be used interchangably.When changing PSA assays in the course of monitoring apatient, additional sequential testing should be carriedout to confirm baseline values. Valproic Acid (Depakene) Level 35 ug/mL 50-100 [facility] Bacteria identified Cx Nom ( Wound)Ordered By: Gunnar Cummings on 12-14-2022 Wound Culture Pseudomonas aeruginosa [facility] Wound Culture Proteus mirabilis [facility] Wound Culture Meth. resistant Stap h. aureus [facility] Gram stain for investigation of transfusion reactionOrdered By: Gunnar Cummings on 12-14-2022 Microscopic observation Gram stain Nom (Unsp spec) [facility] Basophil percentageOrdered B y: Demetrius Fenton on 11-28-2022 Chloride [Moles/Vol] 104 mmol/L 98-107 [facility] Glucose [Mass/Vol] 162 mg/dL 74-106 [facility] Comment on above: Fasting Glucose resu lt greater than or equal to 126 mg/dL suggests DIABETES MELLITUS per A.D.A. criteria. Potassium [Moles/Vol] 4.3 mmol/L 3.5-5.1 [facility] Sodium [Moles/Vol] 136 mmol/L 136-145 [facility] WBC (Bld) [#/Vol] 7.3 10*3/uL 4.4-11.0 [facility] Blood erythrocytes count (nu mber/volume)Ordered By: Demetrius Fenton on 11-28-2022 RBC (Bld) [#/Vol] 4.84 10*6/uL 4.6-6.2 [facility] Blood hemoglobin measurement (mass/volume)Ordered By: Demetrius Fenton on 11-28-2022 Hemoglobin (Bld) [Mass/Vol] 14.2 g/dL 13.0-16.5 [facility] Blood platelet mean volumeOr dered By: Demetrius Fenton on 11-28-2022 Platelet mean volume (Bld) [Entitic vol] 11.6 fL 6.2-12.0 [facility] Determination of erythrocyte mean corpuscular volume (MCV)Ordered By: Demetrius Fenton on 11-28-2022 MCV (RBC) [Entitic vol] 89.7 fL 80-94 [facility] Hematocrit Auto (Bld) [Volum e fraction]Ordered By: Demetrius Fenton on 11-28-2022 Hematocrit (Bld) [Volume fraction] 43.4 % 40-54 [facility] Laboratory - Chemistry and C hemistry - challengeOrdered By: Demetrius Fenton on 11-28-2022 CO2 [Moles/Vol] 25.0 mmol/L 21.0-32.0 [facility] Urea nitrogen/Creatinine [Mass ratio] 20.2 mg/mg 10-20 [facility] Laboratory - Hematology and Cell countsOrdered By: Demetrius Fenton on 11-28-2022 Erythrocyte distribution width (RBC) [Entitic vol] 43.9 fL 35.1-43.9 [facility] Erythrocyte distribution width (RBC) [Ratio] 13.4 % 11.6-14.6 [facility] MCH (RBC) [Entitic mass] 29.3 pg 27.0-32.0 [facility] MCHC Auto (RBC) [Mass/Vol]Or dered By: Demetrius Fenton on 11-28-2022 MCHC (RBC) [Mass/Vol] 32.7 g/dL 32-36 [facility] No Panel InformationOrdered By: Demetrius Fenton on 11-28-2022 Estimated GFR (MDRD) Amer 77 mL/min >60 [facility] Comment on above: GFR Calc Estimated GFR (MDRD) Non-Af Amer 63 mL/min >60 [facility] Comment on above: Non- GFR Calc Platelets bldOrdered By: Miriam Fenton on 11-28-2022 Platelets (Bld) [#/Vol] 172 10*3/uL 150-450 [facility] Serum or plasma calcium roseanne urement (mass/volume)Ordered By: Demetrius Fenton on 11-28-2022 Calcium [Mass/Vol] 9.0 mg/dL 8.5-10.1 [facility] Serum or plasma creatinine m easurement (mass/volume)Ordered By: Demetrius Fenton on 11-28-2022 Creatinine [Mass/Vol] 1.24 mg/dL 0.70-1.30 [facility] Comment on above: The validity of the calculated GFR & GFRAA in patients over 70 years has not been determined. Clinical correlation is essential. Serum or plasma urea nitroge n measurement (mass/volume)Ordered By: Demetrius Fenton on 11-28-2022 Urea nitrogen [Mass/Vol] 25 mg/dL -18 [facility] Thin prep Papanicolaou smear with manual screeningOrdered By: Demetrius Fenton on 11-28-2022 Thin prep Papanicolaou smear with manual screening 7 5-15 [facility] No Panel InformationOrdered By: Demetrius Fenton on 11-21-2022 Valproic Acid (Depakene) Level 35 ug/mL 50-100 [facility] Basophil percentageOrdered B y: Demetrius Fenton on 10-24-2022 Chloride [Moles/Vol] 104 mmol/L 98-107 [facility] Glucose [Mass/Vol] 101 mg/dL 74-106 [facility] Comment on above: Fasting Glucose resu lt from 100 to 125 mg/dL suggests IMPAIRED HOMEOSTASIS per A.D.A. criteria. Potassium [Moles/Vol] 4.6 mmol/L 3.5-5.1 [facility] Sodium [Moles/Vol] 137 mmol/L 136-145 [facility] Laboratory - Chemistry and C hemistry - challengeOrdered By: Demetrius Fenton on 10-24-2022 CO2 [Moles/Vol] 29.0 mmol/L 21.0-32.0 [facility] Urea nitrogen/Creatinine [Mass ratio] 17.4 mg/mg 10- [facility] No Panel InformationOrdered By: Demetrius Fenton on 10-24-2022 Estimated GFR (MDRD) Amer 79 mL/min >60 [facility] Comment on above: GFR Calc Estimated GFR (MDRD) Non-Af Amer 65 mL/min >60 [facility] Comment on above: Non- GFR Calc Serum or plasma calcium roseanne urement (mass/volume)Ordered By: Demetrius Fenton on 10-24-2022 Calcium [Mass/Vol] 9.0 mg/dL 8.5-10.1 [facility] Serum or plasma creatinine m easurement (mass/volume)Ordered By: Demetrius Fenton on 10-24-2022 Creatinine [Mass/Vol] 1.21 mg/dL 0.70-1.30 [facility] Comment on above: The validity of the calculated GFR & GFRAA in patients over 70 years has not been determined. Clinical correlation is essential. Serum or plasma urea nitroge n measurement (mass/volume)Ordered By: Demetrius Fenton on 10-24-2022 Urea nitrogen [Mass/Vol] 21 mg/dL 7-18 [facility] Thin prep Papanicolaou smear with manual screeningOrdered By: Demetrius Fenton on 10-24-2022 Thin prep Papanicolaou smear with manual screening 4 5-15 [facility] Basophil percentageOrdered B y: Demetrius Fenton on 09-12-2022 Cholesterol [Mass/Vol] 107 mg/dL <200 [facility] Comment on above: <200 mg/dL Desirable 200-240 mg/dL Borderline >240 mg/dL High Risk Triglyceride [Mass/Vol] 243 mg/dL <199 [facility] Comment on above: The drugs N-Acetylcy steine and Metamizole may falsely depress this assay.Serum Triglycerides Reference Interval Normal <150 mg/dL Borderline high 150 - 199 mg/dL High 200 - 499 mg/dL Very High > or = 500 mg/dL WBC (Bld) [#/Vol] 9.1 10*3/uL 4.4-11.0 [facility] Blood erythrocytes count (nu mber/volume)Ordered By: Demetrius Fenton on 09-12-2022 RBC (Bld) [#/Vol] 4.59 10*6/uL 4.6-6.2 [facility] Blood hemoglobin measurement (mass/volume)Ordered By: Demetrius Fenton on 09-12-2022 Hemoglobin (Bld) [Mass/Vol] 13.7 g/dL 13.0-16.5 [facility] Blood platelet mean volumeOr dered By: Demetrius Fenton on 09-12-2022 Platelet mean volume (Bld) [Entitic vol] 10.6 fL 6.2-12.0 [facility] Determination of erythrocyte mean corpuscular volume (MCV)Ordered By: Demetrius Fenton on 09-12-2022 MCV (RBC) [Entitic vol] 88.9 fL 80-94 [facility] Hematocrit Auto (Bld) [Volum e fraction]Ordered By: Demetrius Fenton on 09-12-2022 Hematocrit (Bld) [Volume fraction] 40.8 % 40-54 [facility] Laboratory - Hematology and Cell countsOrdered By: Demetrius Fenton on 09-12-2022 Erythrocyte distribution width (RBC) [Entitic vol] 43.8 fL 35.1-43.9 [facility] Erythrocyte distribution width (RBC) [Ratio] 14.0 % 11.6-14.6 [facility] MCH (RBC) [Entitic mass] 29.8 pg 27.0-32.0 [facility] MCHC Auto (RBC) [Mass/Vol]Or dered By: Demetrius Fenton on 09-12-2022 MCHC (RBC) [Mass/Vol] 33.6 g/dL 32-36 [facility] No Panel InformationOrdered By: Demetrius Fenton on 09-12-2022 Valproic Acid (Depakene) Level 29 ug/mL 50-100 [facility] Platelets bldOrdered By: Miriam Fenton on 09-12-2022 Platelets (Bld) [#/Vol] 188 10*3/uL 150-450 [facility] Serum or plasma cholesterol in HDL measurement (mass/volume)Ordered By: Demetrius Fenton on 09-12-2022 Cholesterol in HDL [Mass/Vol] 41 mg/dL >40 [facility] Comment on above: The drugs N-Acetylcy steine and Metamizole may falsely depress this assay. Reference Range HDL <40 mg/dL Low HDL Cholesterol HDL >or= 60 mg/dL High HDL Cholesterol Serum or plasma cholesterol in VLDL measurement (mass/volume)Ordered By: Demetrius Fenton on 09-12-2022 Cholesterol in VLDL [Mass/Vol] 49 mg/dL 5-40 [facility] Serum or plasma low density lipoprotein (LDL) cholesterol measurement (mass/volume)Ordered By: Demetrius Fenton on 09-12-2022 Cholesterol in LDL [Mass/Vol] 17 mg/dL 0-130 [facility] Bacteria identified Cx Nom ( Wound)Ordered By: Demetrius Fenton on 09-10-2022 Wound Culture Pseudomonas aeruginosa [facility] Gram stain for investigation of transfusion reactionOrdered By: Demetrius Fenton on 09-08-2022 Microscopic observation Gram stain Nom (Unsp spec) [facility] Bacteria identified Cx Nom ( Wound)Ordered By: Demetrius Fenton on 09-07-2022 Wound Culture Pseudomonas aeruginosa [facility] Gram stain for investigation of transfusion reactionOrdered By: Demetrius Fenton on 09-07-2022 Microscopic observation Gram stain Nom (Unsp spec) [facility] No Panel InformationOrdered By: Demetrius Fenton on 08-22-2022 Valproic Acid (Depakene) Level 40 ug/mL 50-100 [facility] Basophil percentageOrdered B y: Demetrius Fenton on 08-01-2022 Amylase [Catalytic activity/Vol] 50 U/L 25-115 [facility] Bilirubin [Mass/Vol] 0.50 mg/dL 0.20-1.00 [facility] Comment on above: For patients on eltr ombopag therapy, use of Dimension Moose TBIL is not recommended. Protein [Mass/Vol] 6.4 g/dL 6.4-8.2 [facility] Direct bilirubinOrdered By: Demetrius Fenton on 08-01-2022 Bilirubin.direct [Mass/Vol] 0.14 mg/dL 0.00-0.30 [facility] Laboratory - Chemistry and C hemistry - challengeOrdered By: Demetrius Fenton on 08-01-2022 ALP [Catalytic activity/Vol] 62 U/L 45-117 [facility] ALT [Catalytic activity/Vol] 26 U/L 16-61 [facility] Globulin (S) [Mass/Vol] 3.3 g/dL 2.2-4.2 [facility] Lipase [Catalytic activity/Vol] 45 U/L 13-75 [facility] Comment on above: Please note:LIPASE r evised reference range effective 22. New Lipase methodology. Expected to produce lower values than the previous assay method. NEW Reference Range: 13 - 75 U/L Serum or plasma albumin roseanne urement (mass/volume)Ordered By: Demetrius Fenton on 08-01-2022 Albumin [Mass/Vol] 3.1 g/dL 3.2-5.0 [facility] Thin prep Papanicolaou smear with manual screeningOrdered By: Demetrius Fenton on 08-01-2022 Thin prep Papanicolaou smear with manual screening 18 U/L 15-37 [facility] Basophil percentageOrdered B y: Demetrius Fenton on 07-28-2022 Chloride [Moles/Vol] 107 mmol/L 98-107 [facility] Glucose [Mass/Vol] 95 mg/dL 74-106 [facility] Potassium [Moles/Vol] 4.4 mmol/L 3.5-5.1 [facility] Comment on above: Slight Hemolysis, Re sult may be falsely increased. Sodium [Moles/Vol] 136 mmol/L 136-145 [facility] WBC (Bld) [#/Vol] 7.2 10*3/uL 4.4-11.0 [facility] Blood erythrocytes count (nu mber/volume)Ordered By: Demetrius Fenton on 07-28-2022 RBC (Bld) [#/Vol] 3.82 10*6/uL 4.6-6.2 [facility] Blood hemoglobin measurement (mass/volume)Ordered By: Demetrius Fenton on 07-28-2022 Hemoglobin (Bld) [Mass/Vol] 11.6 g/dL 13.0-16.5 [facility] Blood platelet mean volumeOr dered By: Demetrius Fenton on 07-28-2022 Platelet mean volume (Bld) [Entitic vol] 11.1 fL 6.2-12.0 [facility] Determination of erythrocyte mean corpuscular volume (MCV)Ordered By: Demetrius Fenton on 07-28-2022 MCV (RBC) [Entitic vol] 93.5 fL 80-94 [facility] Hematocrit Auto (Bld) [Volum e fraction]Ordered By: Demetrius Fenton on 07-28-2022 Hematocrit (Bld) [Volume fraction] 35.7 % 40-54 [facility] Laboratory - Chemistry and C hemistry - challengeOrdered By: Demetrius Fenton on 07-28-2022 CO2 [Moles/Vol] 25.0 mmol/L 21.0-32.0 [facility] Urea nitrogen/Creatinine [Mass ratio] 13.1 mg/mg 01-27 [facility] Laboratory - Hematology and Cell countsOrdered By: Demetrius Fenton on 07-28-2022 Erythrocyte distribution width (RBC) [Entitic vol] 47.2 fL 35.1-43.9 [facility] Erythrocyte distribution width (RBC) [Ratio] 14.1 % 11.6-14.6 [facility] MCH (RBC) [Entitic mass] 30.4 pg 27.0-32.0 [facility] MCHC Auto (RBC) [Mass/Vol]Or dered By: Demetrius Fenton on 07-28-2022 MCHC (RBC) [Mass/Vol] 32.5 g/dL 32-36 [facility] No Panel InformationOrdered By: Demetrius Fenton on 07-28-2022 Estimated GFR (MDRD) Amer 99 mL/min >60 [facility] Comment on above: GFR Calc Estimated GFR (MDRD) Non-Af Amer 82 mL/min >60 [facility] Comment on above: Non- GFR Calc Platelets bldOrdered By: Miriam Fenton on 07-28-2022 Platelets (Bld) [#/Vol] 204 10*3/uL 150-450 [facility] Serum or plasma calcium roseanne urement (mass/volume)Ordered By: Demetrius Fenton on 07-28-2022 Calcium [Mass/Vol] 8.9 mg/dL 8.5-10.1 [facility] Serum or plasma creatinine m easurement (mass/volume)Ordered By: Demetrius Fenton on 07-28-2022 Creatinine [Mass/Vol] 0.99 mg/dL 0.70-1.30 [facility] Comment on above: The validity of the calculated GFR & GFRAA in patients over 70 years has not been determined. Clinical correlation is essential. Serum or plasma urea nitroge n measurement (mass/volume)Ordered By: Demetrius Fenton on 07-28-2022 Urea nitrogen [Mass/Vol] 13 mg/dL 7-18 [facility] Thin prep Papanicolaou smear with manual screeningOrdered By: Demetrius Fenton on 07-28-2022 Thin prep Papanicolaou smear with manual screening 4 5-15 [facility] Culture, urineOrdered By: Travis Finch on 07-21-2022 Bacteria identified Cx Nom (U) Escherichia coli [facility] Bilirubin Test strip Ql (U)O rdered By: Demetrius Fenton on 07-18-2022 Bilirubin Ql (U) Negative Negative [facility] Culture, urineOrdered By: Travis Finch on 07-18-2022 Bacteria identified Cx Nom (U) Escherichia coli [facility] Ketones Test strip Ql (U)Ord ered By: Demetrius Fenton on 07-18-2022 Ketones Ql (U) 15 mg/dl Negative [facility] Nitrite Test strip Ql (U)Ord ered By: Demetrius Fenton on 07-18-2022 Nitrite Ql (U) Positive Negative [facility] No Panel InformationOrdered By: Demetrius Fenton on 07-18-2022 Valproic Acid (Depakene) Level 42 ug/mL 50-100 [facility] Protein Test strip Ql (U)Ord ered By: Demetrius Fenton on 07-18-2022 Protein Ql (U) 100 mg/dl Negative [facility] Urine blood detectionOrdered By: Demetrius Fenton on 07-18-2022 RBC Ql (U) 250 /ul Negative [facility] Urine clarityOrdered By: Pet tanisha Fenton on 07-18-2022 Clarity (U) Turbid Clear [facility] Urine color determinationOrd ered By: Demetrius Fenton on 07-18-2022 Color (U) Brown Yellow [facility] Urine glucose detectionOrder ed By: Demetrius Fenton on 07-18-2022 Glucose Ql (U) Normal mg/dl Normal [facility] Urine leukocyte esterase det ection by dipstickOrdered By: Demetrius Fenton on 07-18-2022 Leukocyte esterase Test strip Ql (U) 500 /ul Negative [facility] Urine pHOrdered By: Demetrius astorga on 07-18-2022 pH (U) 5.0 [pH] 5.0 - 8.0 [facility] Urine specific gravity measu rementOrdered By: Demetrius Fenton on 07-18-2022 Specific gravity (U) [Rel density] 1.020 1.002-1.030 [facility] Urobilinogen Auto test strip Ql (U)Ordered By: Demetrius Fenton on 07-18-2022 Urobilinogen Ql (U) 4 mg/dl Normal [facility] Basophil percentageOrdered B y: Gunnar Cummings on 06-30-2022 Amylase [Catalytic activity/Vol] 62 U/L 25-115 [facility] Bilirubin [Mass/Vol] 0.60 mg/dL 0.20-1.00 [facility] Comment on above: For patients on eltr ombopag therapy, use of Dimension Moose TBIL is not recommended. Chloride [Moles/Vol] 103 mmol/L 98-107 [facility] Glucose [Mass/Vol] 120 mg/dL 74-106 [facility] Comment on above: Fasting Glucose resu lt from 100 to 125 mg/dL suggests IMPAIRED HOMEOSTASIS per A.D.A. criteria. Potassium [Moles/Vol] 4.5 mmol/L 3.5-5.1 [facility] Protein [Mass/Vol] 6.2 g/dL 6.4-8.2 [facility] Sodium [Moles/Vol] 139 mmol/L 136-145 [facility] WBC (Bld) [#/Vol] 6.2 10*3/uL 4.4-11.0 [facility] Blood erythrocytes count (nu mber/volume)Ordered By: Gunnar Cummings on 06-30-2022 RBC (Bld) [#/Vol] 3.78 10*6/uL 4.6-6.2 [facility] Blood hemoglobin measurement (mass/volume)Ordered By: Gunnar Cummings on 06-30-2022 Hemoglobin (Bld) [Mass/Vol] 11.7 g/dL 13.0-16.5 [facility] Blood platelet mean volumeOr dered By: Gunnar Cummings on 06-30-2022 Platelet mean volume (Bld) [Entitic vol] 10.6 fL 6.2-12.0 [facility] Determination of erythrocyte mean corpuscular volume (MCV)Ordered By: Gunnar Cummings on 06-30-2022 MCV (RBC) [Entitic vol] 94.2 fL 80-94 [facility] Hematocrit Auto (Bld) [Volum e fraction]Ordered By: Gunnar Cummings on 06-30-2022 Hematocrit (Bld) [Volume fraction] 35.6 % 40-54 [facility] Laboratory - Chemistry and C hemistry - challengeOrdered By: Gunnar Cummings on 06-30-2022 ALP [Catalytic activity/Vol] 77 U/L 45-117 [facility] ALT [Catalytic activity/Vol] 24 U/L 16-61 [facility] CO2 [Moles/Vol] 28.0 mmol/L 21.0-32.0 [facility] Globulin (S) [Mass/Vol] 3.5 g/dL 2.2-4.2 [facility] Lipase [Catalytic activity/Vol] 777 U/L 73-393 [facility] Urea nitrogen/Creatinine [Mass ratio] 15.4 mg/mg 10-20 [facility] Laboratory - Hematology and Cell countsOrdered By: Gunnar Cummings on 06-30-2022 Erythrocyte distribution width (RBC) [Entitic vol] 46.9 fL 35.1-43.9 [facility] Erythrocyte distribution width (RBC) [Ratio] 14.0 % 11.6-14.6 [facility] MCH (RBC) [Entitic mass] 31.0 pg 27.0-32.0 [facility] MCHC Auto (RBC) [Mass/Vol]Or dered By: Gunnar Cummings on 06-30-2022 MCHC (RBC) [Mass/Vol] 32.9 g/dL 32-36 [facility] No Panel InformationOrdered By: Gunnar Cummings on 06-30-2022 Estimated GFR (MDRD) Amer 110 mL/min >60 [facility] Comment on above: GFR Calc Estimated GFR (MDRD) Non-Af Amer 91 mL/min >60 [facility] Comment on above: Non- GFR Calc Platelets bldOrdered By: Ar Cummings on 06-30-2022 Platelets (Bld) [#/Vol] 277 10*3/uL 150-450 [facility] Serum or plasma albumin roseanne urement (mass/volume)Ordered By: Gunnar Cummings on 06-30-2022 Albumin [Mass/Vol] 2.7 g/dL 3.2-5.0 [facility] Serum or plasma albumin/glob ulin mass ratioOrdered By: Gunnar Cummings on 06-30-2022 Albumin/Globulin [Mass ratio] 0.8 {ratio} 0.9-2.4 [facility] Serum or plasma calcium roseanne urement (mass/volume)Ordered By: Gunnar Cummings on 06-30-2022 Calcium [Mass/Vol] 8.9 mg/dL 8.5-10.1 [facility] Serum or plasma creatinine m easurement (mass/volume)Ordered By: Gunnar Cummings on 06-30-2022 Creatinine [Mass/Vol] 0.91 mg/dL 0.70-1.30 [facility] Comment on above: The validity of the calculated GFR & GFRAA in patients over 70 years has not been determined. Clinical correlation is essential. Serum or plasma urea nitroge n measurement (mass/volume)Ordered By: Gunnar Cummings on 06-30-2022 Urea nitrogen [Mass/Vol] 14 mg/dL 7-18 [facility] Thin prep Papanicolaou smear with manual screeningOrdered By: Gunnar Cummings on 06-30-2022 Thin prep Papanicolaou smear with manual screening 15 U/L 15-37 [facility] Thin prep Papanicolaou smear with manual screening 8 5-15 [facility] Cobalamin (Vitamin B12) [Mas s/Vol]on 06-23-2022 Interpretation and review of laboratory results Normal [facility] Comprehensive metabolic 1998 panelon 06-23-2022 Albumin [Mass/Vol] 3.1 g/dL Low 3.5 - 5.0 g/dL [facility] [facility] ALP [Catalytic activity/Vol] 80 U/L 38 - 126 U/L [facility] ALT [Catalytic activity/Vol] 29 U/L 0 - 49 U/L [facility] Anion gap [Moles/Vol] 0 mmol/L Low 3 - 13 mmol/L [facility] AST [Catalytic activity/Vol] 37 U/L 15 - 46 U/L [facility] Bilirubin [Mass/Vol] 0.4 mg/dL 0.2 - 1 .3 mg/dL [facility] Calcium [Mass/Vol] 8.3 mg/dL Low 8.4 - 10. 4 mg/dL [facility] Chloride [Moles/Vol] 100 mmol/L 98 - 10 7 mmol/L [facility] CO2 [Moles/Vol] 32 mmol/L High 22 - 30 mmol/L [facility] Creatinine [Mass/Vol] 0.70 mg/dL 0.66 - 1.25 mg/dL [facility] GFR/1.73 sq M.predicted MDRD (S/P/Bld) [Vol rate/Area] - PINF [facility] Glucose [Mass/Vol] 169 mg/dL High 70 - 100 mg/dL [facility] Interpretation and review of laboratory results Abnormal [facility] Potassium [Moles/Vol] 3.6 mmol/L 3.5 - 5.1 mmol/L [facility] Protein [Mass/Vol] 6.1 g/dL Low 6.3 - 8.2 g/dL [facility] Sodium [Moles/Vol] 131 mmol/L Low 135 - 145 mmol/L [facility] Urea nitrogen [Mass/Vol] 17 mg/dL 9 - 20 mg/dL [facility] Ferritin [Mass/Vol]on 2022 Interpretation and review of laboratory results Normal [facility] Iron and Iron binding capaci ty panelon 06-23-2022 Interpretation and review of laboratory results Normal [facility] Iron [Mass/Vol] 83 ug/dL 49 - 181 ug/dL [facility] Iron binding capacity [Mass/Vol] 285 ug/dL 261 - 497 ug/dL [facility] Iron saturation [Mass fraction] 29 % 15 - 50 % [facility] Laboratory - Chemistry and C hemistry - challengeon 06-23-2022 Cobalamin (Vitamin B12) [Mass/Vol] 734 pg/mL 239 - 931 pg/mL [facility] Ferritin [Mass/Vol] 420 ng/mL 18 - 464 ng/mL [facility] Transferrin [Mass/Vol] 232 mg/dL 206 - 381 mg/dL [facility] Glucose [Mass/Vol] 200 mg/dL High 70 - 100 mg/dL [facility] No Panel Informationon 06-23 Interpretation and review of laboratory results Normal [facility] Interpretation and review of laboratory results Abnormal [facility] CBC W Auto Differential pane l (Bld)on 06-22-2022 Erythrocyte distribution width (RBC) [Ratio] 13.9 % 11.5 - 14.5 % [facility] Hematocrit (Bld) [Volume fraction] 34.7 % Low 40.0 - 52.0 % [facility] Hemoglobin (Bld) [Mass/Vol] 12.1 g/dL Low 13.0 - 18.0 g/dL [facility] MCH (RBC) [Entitic mass] 31.1 pg 26.0 - 34.0 pg [facility] MCHC (RBC) [Mass/Vol] 34.8 % 32.0 - 36.0 % [facility] MCV (RBC) [Entitic vol] 89.3 fL 80.0 - 98.0 fL [facility] Nucleated RBC/100 WBC (Bld) [Ratio] 0.2 % [facility] Platelet mean volume (Bld) [Entitic vol] 7.8 fL 7.4 - 12.4 fL [facility] Platelets (Bld) [#/Vol] 377 10*3/uL 140 - 440 10*3/uL [facility] RBC (Bld) [#/Vol] 3.89 10*6/uL Low 4.40 - 5.9 0 10*6/uL [facility] WBC (Bld) [#/Vol] 13.0 10*3/uL High 3.6 - 10.7 10*3/uL [facility] Comprehensive metabolic 1998 panelon 06-22-2022 Albumin [Mass/Vol] 3.0 g/dL Low 3.5 - 5.0 g/dL [facility] ALP [Catalytic activity/Vol] 72 U/L 38 - 126 U/L [facility] ALT [Catalytic activity/Vol] 27 U/L 0 - 49 U/L [facility] Anion gap [Moles/Vol] 1 mmol/L Low 3 - 13 mmol/L [facility] AST [Catalytic activity/Vol] 58 U/L High 15 - 46 U/L [facility] Bilirubin [Mass/Vol] 0.6 mg/dL 0.2 - 1 .3 mg/dL [facility] Calcium [Mass/Vol] 8.0 mg/dL Low 8.4 - 10. 4 mg/dL [facility] Chloride [Moles/Vol] 96 mmol/L Low 98 - 10 7 mmol/L [facility] CO2 [Moles/Vol] 32 mmol/L High 22 - 30 mmol/L [facility] Creatinine [Mass/Vol] 0.66 mg/dL 0.66 - 1.25 mg/dL [facility] GFR/1.73 sq M.predicted MDRD (S/P/Bld) [Vol rate/Area] - PINF [facility] Glucose [Mass/Vol] 204 mg/dL High 70 - 100 mg/dL [facility] Potassium [Moles/Vol] 3.8 mmol/L 3.5 - 5.1 mmol/L [facility] Protein [Mass/Vol] 6.1 g/dL Low 6.3 - 8.2 g/dL [facility] Sodium [Moles/Vol] 129 mmol/L Low 135 - 145 mmol/L [facility] Urea nitrogen [Mass/Vol] 17 mg/dL 9 - 20 mg/dL [facility] HbA1c (Bld) [Mass fraction]o n 06-22-2022 Glucose [Mass/Vol] 151 mg/dL [facility] HbA1c (Bld) [Mass/Vol] 6.9 % High NINF - 5.7 % [facility] Interpretation and review of laboratory results Abnormal [facility] Laboratory - Chemistry and C hemistry - challengeon 06-22-2022 Lipase [Catalytic activity/Vol] 1218 U/L High 23 - 300 U/L [facility] Magnesium [Mass/Vol] 2.1 mg/dL 1.6 - 2 .3 mg/dL [facility] Magnesium [Mass/Vol]on 06-22 Interpretation and review of laboratory results Normal [facility] Manual differential performe d Ql (Bld)on 06-22-2022 Band form neutrophils (Bld) [#/Vol] 0.3 10*3/uL High NINF - 0.0 10*3/uL [facility] Band form neutrophils/100 WBC (Bld) 2 % High NINF - 0 % [facility] Bands Manual 2 [facility] Cells Counted Total (Bld) [#] 100 {cells} [facility] Eosinophils (Bld) [#/Vol] 0.8 10*3/uL High 0.0 - 0.5 10*3/uL [facility] Eosinophils Manual 6 High 0 - 1 [facility] Eosinophils/100 WBC (Bld) 6 % 1 - 6 % [facility] Leukocyte morphology finding Nom (Bld) Normal [facility] Lymphocytes (Bld) [#/Vol] 2.3 10*3/uL 1.0 - 4.3 10*3/uL [facility] Lymphocytes Manual 18 [facility] Lymphocytes/100 WBC (Bld) 18 % Low 20 - 40 % [facility] Metamyelocytes (Bld) [#/Vol] 0.1 10*3/uL High NINF - 0.0 10*3/uL [facility] Metamyelocytes Manual 1 [facility] Metamyelocytes/100 WBC (Bld) 1 % High NINF - 0 % [facility] Monocytes (Bld) [#/Vol] 0.4 10*3/uL 0.0 - 0.8 10*3/uL [facility] Monocytes Manual 3 [facility] alth Monocytes/100 WBC (Bld) 3 % 2 - 10 % [facility] Myelocytes (Bld) [#/Vol] 0.7 10*3/uL High NINF - 0.0 10*3/uL [facility] Myelocytes Manual 5 [facility] Myelocytes/100 WBC (Bld) 5 % High NINF - 0 % [facility] Neutrophils (Bld) [#/Vol] 8.7 10*3/uL High 1.8 - 7.0 10*3/uL [facility] Neutrophils Manual 65 [facility] Platelet morphology finding Nom (Bld) Normal [facility] Polychromasia LM Ql (Bld) Slight Abnormal (none) [facility] Segmented neutrophils/100 WBC (Bld) 65 % 40 - 80 % [facility] WBC corrected for nucl RBC (Bld) [#/Vol] 13.00 10*3/uL High 3.60 - 10.70 10*3/uL [facility] No Panel Informationon 06-22 Interpretation and review of laboratory results Abnormal [facility] Interpretation and review of laboratory results Abnormal [facility] Bacteria identified Cx Nom ( Bld)on 06-21-2022 Interpretation and review of laboratory results Normal [facility] CBC W Auto Differential pane l (Bld)on 06-21-2022 Erythrocyte distribution width (RBC) [Ratio] 13.8 % 11.5 - 14.5 % [facility] Hematocrit (Bld) [Volume fraction] 36.1 % Low 40.0 - 52.0 % [facility] Hemoglobin (Bld) [Mass/Vol] 12.4 g/dL Low 13.0 - 18.0 g/dL [facility] MCH (RBC) [Entitic mass] 30.9 pg 26.0 - 34.0 pg [facility] MCHC (RBC) [Mass/Vol] 34.4 % 32.0 - 36.0 % [facility] MCV (RBC) [Entitic vol] 89.8 fL 80.0 - 98.0 fL [facility] Nucleated RBC/100 WBC (Bld) [Ratio] 0.1 % [facility] Platelet mean volume (Bld) [Entitic vol] 8.2 fL 7.4 - 12.4 fL [facility] Platelets (Bld) [#/Vol] 401 10*3/uL 140 - 440 10*3/uL [facility] RBC (Bld) [#/Vol] 4.02 10*6/uL Low 4.40 - 5.9 0 10*6/uL [facility] WBC (Bld) [#/Vol] 16.2 10*3/uL High 3.6 - 10.7 10*3/uL [facility] Comprehensive metabolic 1998 panelon 06-21-2022 Albumin [Mass/Vol] 3.2 g/dL Low 3.5 - 5.0 g/dL [facility] ALP [Catalytic activity/Vol] 78 U/L 38 - 126 U/L [facility] ALT [Catalytic activity/Vol] 30 U/L 0 - 49 U/L [facility] Anion gap [Moles/Vol] 0 mmol/L Low 3 - 13 mmol/L [facility] AST [Catalytic activity/Vol] 56 U/L High 15 - 46 U/L [facility] Bilirubin [Mass/Vol] 0.7 mg/dL 0.2 - 1 .3 mg/dL [facility] Calcium [Mass/Vol] 8.0 mg/dL Low 8.4 - 10. 4 mg/dL [facility] Chloride [Moles/Vol] 93 mmol/L Low 98 - 10 7 mmol/L [facility] CO2 [Moles/Vol] 33 mmol/L High 22 - 30 mmol/L [facility] Creatinine [Mass/Vol] 0.74 mg/dL 0.66 - 1.25 mg/dL [facility] GFR/1.73 sq M.predicted MDRD (S/P/Bld) [Vol rate/Area] - PINF [facility] Glucose [Mass/Vol] 252 mg/dL High 70 - 100 mg/dL [facility] Potassium [Moles/Vol] 4.0 mmol/L 3.5 - 5.1 mmol/L [facility] Protein [Mass/Vol] 6.5 g/dL 6.3 - 8.2 g/dL [facility] Sodium [Moles/Vol] 126 mmol/L Low 135 - 145 mmol/L [facility] Urea nitrogen [Mass/Vol] 19 mg/dL 9 - 20 mg/dL [facility] Laboratory - Chemistry and C hemistry - challengeon 06-21-2022 Lipase [Catalytic activity/Vol] 1352 U/L High 23 - 300 U/L [facility] Magnesium [Mass/Vol] 2.0 mg/dL 1.6 - 2 .3 mg/dL [facility] Laboratory - Microbiology an d Antimicrobial susceptibilityon 06-21-2022 Bacteria identified Cx Nom (Bld) No growth at 5 days [facility] Magnesium [Mass/Vol]on 06-21 Interpretation and review of laboratory results Normal [facility] Manual differential performe d Ql (Bld)on 06-21-2022 Cells Counted Total (Bld) [#] 100 {cells} [facility] Eosinophils (Bld) [#/Vol] 0.3 10*3/uL 0.0 - 0.5 10*3/uL [facility] Eosinophils Manual 2 High 0 - 1 [facility] Eosinophils/100 WBC (Bld) 2 % 1 - 6 % [facility] Lymphocytes (Bld) [#/Vol] 3.2 10*3/uL 1.0 - 4.3 10*3/uL [facility] Lymphocytes Manual 20 [facility] Lymphocytes/100 WBC (Bld) 20 % 20 - 40 % [facility] Metamyelocytes (Bld) [#/Vol] 0.5 10*3/uL High NINF - 0.0 10*3/uL [facility] Metamyelocytes Manual 3 [facility] Metamyelocytes/100 WBC (Bld) 3 % High NINF - 0 % [facility] Monocytes (Bld) [#/Vol] 0.5 10*3/uL 0.0 - 0.8 10*3/uL [facility] Monocytes Manual 3 [facility] Monocytes/100 WBC (Bld) 3 % 2 - 10 % [facility] Myelocytes (Bld) [#/Vol] 0.3 10*3/uL High NINF - 0.0 10*3/uL [facility] Myelocytes Manual 2 [facility] Myelocytes/100 WBC (Bld) 2 % High NINF - 0 % [facility] Neutrophils (Bld) [#/Vol] 11.3 10*3/uL High 1.8 - 7.0 10*3/uL [facility] Neutrophils Manual 70 [facility] Neutrophils.vacuolated LM Ql (Bld) Present Abnormal (none) [facility] Platelet morphology finding Nom (Bld) Normal [facility] RBC morphology finding Nom (Bld) Normal [facility] Segmented neutrophils/100 WBC (Bld) 70 % 40 - 80 % [facility] WBC corrected for nucl RBC (Bld) [#/Vol] 16.20 10*3/uL High 3.60 - 10.70 10*3/uL [facility] No Panel Informationon 06-21 Interpretation and review of laboratory results Abnormal [facility] Interpretation and review of laboratory results Abnormal [facility] CBC W Auto Differential pane l (Bld)on 06-20-2022 Basophils (Bld) [#/Vol] 0.2 10*3/uL 0.0 - 0.2 10*3/uL [facility] Basophils/100 WBC (Bld) 0.9 % 0.0 - 2.0 % [facility] Eosinophils (Bld) [#/Vol] 0.6 10*3/uL High 0.0 - 0.5 10*3/uL [facility] Eosinophils/100 WBC (Bld) 3.1 % 1.0 - 6.0 % [facility] Erythrocyte distribution width (RBC) [Ratio] 13.7 % 11.5 - 14.5 % [facility] Hematocrit (Bld) [Volume fraction] 38.9 % Low 40.0 - 52.0 % [facility] Hemoglobin (Bld) [Mass/Vol] 13.2 g/dL 13.0 - 18.0 g/dL [facility] Interpretation and review of laboratory results Abnormal [facility] Lymphocytes (Bld) [#/Vol] 3.2 10*3/uL 1.0 - 4.3 10*3/uL [facility] Lymphocytes/100 WBC (Bld) 17.9 % Low 20.0 - 40.0 % [facility] MCH (RBC) [Entitic mass] 30.5 pg 26.0 - 34.0 pg [facility] MCHC (RBC) [Mass/Vol] 33.9 % 32.0 - 36.0 % [facility] MCV (RBC) [Entitic vol] 90.0 fL 80.0 - 98.0 fL [facility] Monocytes (Bld) [#/Vol] 1.1 10*3/uL High 0.0 - 0.8 10*3/uL [facility] Monocytes/100 WBC (Bld) 6.1 % 2.0 - 10.0 % [facility] Neutrophils (Bld) [#/Vol] 12.8 10*3/uL High 1.8 - 7.0 10*3/uL [facility] Neutrophils/100 WBC (Bld) 72.0 % 40.0 - 80.0 % [facility] Nucleated RBC/100 WBC (Bld) [Ratio] 0.0 % [facility] Platelet mean volume (Bld) [Entitic vol] 7.9 fL 7.4 - 12.4 fL [facility] Platelets (Bld) [#/Vol] 389 10*3/uL 140 - 440 10*3/uL [facility] RBC (Bld) [#/Vol] 4.33 10*6/uL Low 4.40 - 5.9 0 10*6/uL [facility] WBC (Bld) [#/Vol] 17.8 10*3/uL High 3.6 - 10.7 10*3/uL [facility] Comprehensive metabolic 1998 panelon 06-20-2022 Albumin [Mass/Vol] 3.3 g/dL Low 3.5 - 5.0 g/dL [facility] ALP [Catalytic activity/Vol] 97 U/L 38 - 126 U/L [facility] ALT [Catalytic activity/Vol] 37 U/L 0 - 49 U/L [facility] Anion gap [Moles/Vol] 3 mmol/L 3 - 13 mmol/L [facility] AST [Catalytic activity/Vol] 43 U/L 15 - 46 U/L [facility] Bilirubin [Mass/Vol] 0.6 mg/dL 0.2 - 1 .3 mg/dL [facility] Calcium [Mass/Vol] 8.2 mg/dL Low 8.4 - 10. 4 mg/dL [facility] Chloride [Moles/Vol] 90 mmol/L Low 98 - 10 7 mmol/L [facility] CO2 [Moles/Vol] 33 mmol/L High 22 - 30 mmol/L [facility] Creatinine [Mass/Vol] 0.81 mg/dL 0.66 - 1.25 mg/dL [facility] GFR/1.73 sq M.predicted MDRD (S/P/Bld) [Vol rate/Area] - PINF [facility] Glucose [Mass/Vol] 241 mg/dL High 70 - 100 mg/dL [facility] Potassium [Moles/Vol] 3.8 mmol/L 3.5 - 5.1 mmol/L [facility] Protein [Mass/Vol] 6.7 g/dL 6.3 - 8.2 g/dL [facility] Sodium [Moles/Vol] 126 mmol/L Low 135 - 145 mmol/L [facility] Urea nitrogen [Mass/Vol] 22 mg/dL High 9 - 20 mg/dL [facility] Laboratory - Chemistry and C hemistry - challengeon 06-20-2022 Lipase [Catalytic activity/Vol] 1528 U/L High 23 - 300 U/L [facility] Magnesium [Mass/Vol] 2.2 mg/dL 1.6 - 2 .3 mg/dL [facility] Magnesium [Mass/Vol]on 06-20 Interpretation and review of laboratory results Normal [facility] No Panel Informationon 06-20 Interpretation and review of laboratory results Abnormal [facility] CBC W Auto Differential pane l (Bld)on 06-19-2022 Erythrocyte distribution width (RBC) [Ratio] 13.9 % 11.5 - 14.5 % [facility] Hematocrit (Bld) [Volume fraction] 38.2 % Low 40.0 - 52.0 % [facility] Hemoglobin (Bld) [Mass/Vol] 13.0 g/dL 13.0 - 18.0 g/dL [facility] MCH (RBC) [Entitic mass] 30.4 pg 26.0 - 34.0 pg [facility] MCHC (RBC) [Mass/Vol] 34.0 % 32.0 - 36.0 % [facility] MCV (RBC) [Entitic vol] 89.6 fL 80.0 - 98.0 fL [facility] Nucleated RBC/100 WBC (Bld) [Ratio] 0.1 % [facility] Platelet mean volume (Bld) [Entitic vol] 8.1 fL 7.4 - 12.4 fL [facility] Platelets (Bld) [#/Vol] 325 10*3/uL 140 - 440 10*3/uL [facility] RBC (Bld) [#/Vol] 4.26 10*6/uL Low 4.40 - 5.9 0 10*6/uL [facility] WBC (Bld) [#/Vol] 19.0 10*3/uL High 3.6 - 10.7 10*3/uL [facility] Comprehensive metabolic 1998 panelon 06-19-2022 Albumin [Mass/Vol] 3.2 g/dL Low 3.5 - 5.0 g/dL [facility] ALP [Catalytic activity/Vol] 100 U/L 38 - 126 U/L [facility] ALT [Catalytic activity/Vol] 36 U/L 0 - 49 U/L [facility] Anion gap [Moles/Vol] 1 mmol/L Low 3 - 13 mmol/L [facility] AST [Catalytic activity/Vol] 43 U/L 15 - 46 U/L [facility] Bilirubin [Mass/Vol] 0.6 mg/dL 0.2 - 1 .3 mg/dL [facility] Calcium [Mass/Vol] 7.9 mg/dL Low 8.4 - 10. 4 mg/dL [facility] Chloride [Moles/Vol] 90 mmol/L Low 98 - 10 7 mmol/L [facility] CO2 [Moles/Vol] 34 mmol/L High 22 - 30 mmol/L [facility] Creatinine [Mass/Vol] 0.85 mg/dL 0.66 - 1.25 mg/dL [facility] GFR/1.73 sq M.predicted MDRD (S/P/Bld) [Vol rate/Area] - PINF [facility] Glucose [Mass/Vol] 250 mg/dL High 70 - 100 mg/dL [facility] Potassium [Moles/Vol] 3.9 mmol/L 3.5 - 5.1 mmol/L [facility] Protein [Mass/Vol] 6.6 g/dL 6.3 - 8.2 g/dL [facility] Sodium [Moles/Vol] 126 mmol/L Low 135 - 145 mmol/L [facility] Urea nitrogen [Mass/Vol] 24 mg/dL High 9 - 20 mg/dL [facility] Laboratory - Chemistry and C hemistry - challengeon 06-19-2022 Lipase [Catalytic activity/Vol] 1500 U/L High 23 - 300 U/L [facility] Magnesium [Mass/Vol] 2.2 mg/dL 1.6 - 2 .3 mg/dL [facility] Magnesium [Mass/Vol]on 06-19 Interpretation and review of laboratory results Normal [facility] Manual differential performe d Ql (Bld)on 06-19-2022 Band form neutrophils (Bld) [#/Vol] 0.2 10*3/uL High NINF - 0.0 10*3/uL [facility] Band form neutrophils/100 WBC (Bld) 1 % High NINF - 0 % [facility] Bands Manual 1 [facility] Cells Counted Total (Bld) [#] 100 {cells} [facility] Eosinophils (Bld) [#/Vol] 1.1 10*3/uL High 0.0 - 0.5 10*3/uL [facility] Eosinophils Manual 6 High 0 - 1 [facility] Eosinophils/100 WBC (Bld) 6 % 1 - 6 % [facility] Leukocyte morphology finding Nom (Bld) Normal [facility] Lymphocytes (Bld) [#/Vol] 2.1 10*3/uL 1.0 - 4.3 10*3/uL [facility] Lymphocytes Manual 11 [facility] Lymphocytes/100 WBC (Bld) 11 % Low 20 - 40 % [facility] Monocytes (Bld) [#/Vol] 0.6 10*3/uL 0.0 - 0.8 10*3/uL [facility] Monocytes Manual 3 [facility] alth Monocytes/100 WBC (Bld) 3 % 2 - 10 % [facility] Myelocytes (Bld) [#/Vol] 0.6 10*3/uL High NINF - 0.0 10*3/uL [facility] Myelocytes Manual 3 [facility] Myelocytes/100 WBC (Bld) 3 % High NINF - 0 % [facility] Neutrophils (Bld) [#/Vol] 14.6 10*3/uL High 1.8 - 7.0 10*3/uL [facility] Neutrophils Manual 76 [facility] Platelet morphology finding Nom (Bld) Normal [facility] Polychromasia LM Ql (Bld) Slight Abnormal (none) [facility] Segmented neutrophils/100 WBC (Bld) 76 % 40 - 80 % [facility] WBC corrected for nucl RBC (Bld) [#/Vol] 19.00 10*3/uL High 3.60 - 10.70 10*3/uL [facility] No Panel Informationon 06-19 Interpretation and review of laboratory results Abnormal [facility] Interpretation and review of laboratory results Abnormal [facility] XR Chest Single viewon 06-19 [facility] RADIOLOGY [facility] RADIOLOGY [facility] Radiology Study observation (narrative) [facility]vey CBC W Auto Differential pane l (Bld)on 06-18-2022 Erythrocyte distribution width (RBC) [Ratio] 13.6 % 11.5 - 14.5 % [facility] Hematocrit (Bld) [Volume fraction] 39.5 % Low 40.0 - 52.0 % [facility] Hemoglobin (Bld) [Mass/Vol] 13.3 g/dL 13.0 - 18.0 g/dL [facility] MCH (RBC) [Entitic mass] 30.3 pg 26.0 - 34.0 pg [facility] MCHC (RBC) [Mass/Vol] 33.6 % 32.0 - 36.0 % [facility] MCV (RBC) [Entitic vol] 90.0 fL 80.0 - 98.0 fL [facility] Nucleated RBC/100 WBC (Bld) [Ratio] 0.2 % [facility] Platelet mean volume (Bld) [Entitic vol] 8.1 fL 7.4 - 12.4 fL [facility] Platelets (Bld) [#/Vol] 304 10*3/uL 140 - 440 10*3/uL [facility] RBC (Bld) [#/Vol] 4.39 10*6/uL Low 4.40 - 5.9 0 10*6/uL [facility] WBC (Bld) [#/Vol] 20.7 10*3/uL High 3.6 - 10.7 10*3/uL [facility] Comprehensive metabolic 1998 panelon 06-18-2022 Albumin [Mass/Vol] 3.3 g/dL Low 3.5 - 5.0 g/dL [facility] ALP [Catalytic activity/Vol] 118 U/L 38 - 126 U/L [facility] ALT [Catalytic activity/Vol] 28 U/L 0 - 49 U/L [facility] Anion gap [Moles/Vol] 2 mmol/L Low 3 - 13 mmol/L [facility] AST [Catalytic activity/Vol] 40 U/L 15 - 46 U/L [facility] Bilirubin [Mass/Vol] 0.7 mg/dL 0.2 - 1 .3 mg/dL [facility] Calcium [Mass/Vol] 8.3 mg/dL Low 8.4 - 10. 4 mg/dL [facility] Chloride [Moles/Vol] 93 mmol/L Low 98 - 10 7 mmol/L [facility] CO2 [Moles/Vol] 35 mmol/L High 22 - 30 mmol/L [facility] Creatinine [Mass/Vol] 0.88 mg/dL 0.66 - 1.25 mg/dL [facility] GFR/1.73 sq M.predicted MDRD (S/P/Bld) [Vol rate/Area] - PINF [facility] [employer] Glucose [Mass/Vol] 195 mg/dL High 70 - 100 mg/dL [facility] [employer] Potassium [Moles/Vol] 3.8 mmol/L 3.5 - 5.1 mmol/L [facility] [employer] Protein [Mass/Vol] 6.9 g/dL 6.3 - 8.2 g/dL [facility] [employer] Sodium [Moles/Vol] 129 mmol/L Low 135 - 145 mmol/L [facility] Urea nitrogen [Mass/Vol] 22 mg/dL High 9 - 20 mg/dL [facility] Laboratory - Chemistry and C hemistry - challengeon 06-18-2022 Lipase [Catalytic activity/Vol] 1360 U/L High 23 - 300 U/L [facility] Magnesium [Mass/Vol] 2.2 mg/dL 1.6 - 2 .3 mg/dL [facility] Magnesium [Mass/Vol]on 06-18 Interpretation and review of laboratory results Normal [facility] [employer] Manual differential performe d Ql (Bld)on 06-18-2022 Band form neutrophils (Bld) [#/Vol] 0.4 10*3/uL High NINF - 0.0 10*3/uL [facility] Band form neutrophils/100 WBC (Bld) 2 % High NINF - 0 % [facility] [employer] Bands Manual 2 [facility] Cells Counted Total (Bld) [#] 100 {cells} [facility] Eosinophils (Bld) [#/Vol] 0.2 10*3/uL 0.0 - 0.5 10*3/uL [facility] [employer] Eosinophils Manual 1 0 - 1 [facility] Eosinophils/100 WBC (Bld) 1 % 1 - 6 % [facility] Leukocyte morphology finding Nom (Bld) Normal [facility] Lymphocytes (Bld) [#/Vol] 1.7 10*3/uL 1.0 - 4.3 10*3/uL [facility] Lymphocytes Manual 8 [facility] Lymphocytes/100 WBC (Bld) 8 % Low 20 - 40 % [facility] Metamyelocytes (Bld) [#/Vol] 0.4 10*3/uL High NINF - 0.0 10*3/uL [facility] Metamyelocytes Manual 2 [facility] Metamyelocytes/100 WBC (Bld) 2 % High NINF - 0 % [facility] Monocytes (Bld) [#/Vol] 0.8 10*3/uL 0.0 - 0.8 10*3/uL [facility] Monocytes Manual 4 [facility] alth Monocytes/100 WBC (Bld) 4 % 2 - 10 % [facility] Myelocytes (Bld) [#/Vol] 0.4 10*3/uL High NINF - 0.0 10*3/uL [facility] Myelocytes Manual 2 [facility] Myelocytes/100 WBC (Bld) 2 % High NINF - 0 % [facility] Neutrophils (Bld) [#/Vol] 17.2 10*3/uL High 1.8 - 7.0 10*3/uL [facility] Neutrophils Manual 81 [facility] Nucleated RBC/100 WBC (Bld) [Ratio] 1 % [facility] Platelet morphology finding Nom (Bld) Normal [facility] Polychromasia LM Ql (Bld) Slight Abnormal (none) [facility] Segmented neutrophils/100 WBC (Bld) 81 % High 40 - 80 % [facility] Stomatocytes LM Ql (Bld) Slight Abnormal (none) [facility] WBC corrected for nucl RBC (Bld) [#/Vol] 20.70 10*3/uL High 3.60 - 10.70 10*3/uL [facility] No Panel Informationon 06-18 Interpretation and review of laboratory results Abnormal [facility] Interpretation and review of laboratory results Abnormal [facility] SARS-CoV-2 (COVID-19) RNA pa sol FAN+probe (Resp)on 06-18-2022 Interpretation and review of laboratory results Normal [facility] SARS-CoV-2 (COVID-19) RNA FAN+probe Ql (Resp) Not detected Not Detected [facility] XR Chest Single viewon 06-18 [facility] Radiology Study observation (narrative) Sophia harvey XR Chest Single viewOrdered By: Brady Douglas on 06-18-2022 [facility] Work Phone: Bacteria identified Aer cx N om (Lower resp)Ordered By: Latoya Diaz on 06-17-2022 Gram Stain Result Moderate Polymorphonuclear leukocytes per low power field Abnormal [facility] Gram Stain Result Moderate Epithelial cells per low power field Abnormal [facility] Gram Stain Result Positive Abnormal [facility] Gram Stain Result Negative Abnormal [facility] Interpretation and review of laboratory results Abnormal [facility] CBC W Auto Differential pane l (Bld)on 06-17-2022 Erythrocyte distribution width (RBC) [Ratio] 13.9 % 11.5 - 14.5 % [facility] Hematocrit (Bld) [Volume fraction] 37.7 % Low 40.0 - 52.0 % [facility] Hemoglobin (Bld) [Mass/Vol] 12.6 g/dL Low 13.0 - 18.0 g/dL [facility] MCH (RBC) [Entitic mass] 30.2 pg 26.0 - 34.0 pg [facility] MCHC (RBC) [Mass/Vol] 33.5 % 32.0 - 36.0 % [facility] MCV (RBC) [Entitic vol] 90.0 fL 80.0 - 98.0 fL [facility] Nucleated RBC/100 WBC (Bld) [Ratio] 0.1 % [facility] Platelet mean volume (Bld) [Entitic vol] 8.0 fL 7.4 - 12.4 fL [facility] Platelets (Bld) [#/Vol] 264 10*3/uL 140 - 440 10*3/uL [facility] RBC (Bld) [#/Vol] 4.18 10*6/uL Low 4.40 - 5.9 0 10*6/uL [facility] WBC (Bld) [#/Vol] 19.8 10*3/uL High 3.6 - 10.7 10*3/uL [facility] Comprehensive metabolic 1998 panelon 06-17-2022 Albumin [Mass/Vol] 3.1 g/dL Low 3.5 - 5.0 g/dL [facility] ALP [Catalytic activity/Vol] 117 U/L 38 - 126 U/L [facility] ALT [Catalytic activity/Vol] 23 U/L 0 - 49 U/L [facility] Anion gap [Moles/Vol] 2 mmol/L Low 3 - 13 mmol/L [facility] AST [Catalytic activity/Vol] 35 U/L 15 - 46 U/L [facility] Bilirubin [Mass/Vol] 0.6 mg/dL 0.2 - 1 .3 mg/dL [facility] Calcium [Mass/Vol] 8.0 mg/dL Low 8.4 - 10. 4 mg/dL [facility] Chloride [Moles/Vol] 95 mmol/L Low 98 - 10 7 mmol/L [facility] CO2 [Moles/Vol] 33 mmol/L High 22 - 30 mmol/L [facility] Creatinine [Mass/Vol] 0.82 mg/dL 0.66 - 1.25 mg/dL [facility] GFR/1.73 sq M.predicted MDRD (S/P/Bld) [Vol rate/Area] - PINF [facility] Glucose [Mass/Vol] 181 mg/dL High 70 - 100 mg/dL [facility] Potassium [Moles/Vol] 3.7 mmol/L 3.5 - 5.1 mmol/L [facility] Protein [Mass/Vol] 6.5 g/dL 6.3 - 8.2 g/dL [facility] Sodium [Moles/Vol] 130 mmol/L Low 135 - 145 mmol/L [facility] Urea nitrogen [Mass/Vol] 19 mg/dL 9 - 20 mg/dL [facility] Laboratory - Chemistry and C hemistry - challengeon 06-17-2022 Lipase [Catalytic activity/Vol] 1078 U/L High 23 - 300 U/L [facility] Magnesium [Mass/Vol] 2.2 mg/dL 1.6 - 2 .3 mg/dL [facility] Laboratory - Microbiology an d Antimicrobial susceptibilityOrdered By: Latoya Diaz on 06-17-2022 Bacteria identified Aer cx Nom (Lower resp) Few respiratory vikram present. [facility] Magnesium [Mass/Vol]on 06-17 Interpretation and review of laboratory results Normal [facility] Manual differential performe d Ql (Bld)on 06-17-2022 Band form neutrophils (Bld) [#/Vol] 0.2 10*3/uL High NINF - 0.0 10*3/uL [facility] Band form neutrophils/100 WBC (Bld) 1 % High NINF - 0 % [facility] Bands Manual 1 [facility] Cells Counted Total (Bld) [#] 100 {cells} [facility] Eosinophils (Bld) [#/Vol] 0.2 10*3/uL 0.0 - 0.5 10*3/uL [facility] Eosinophils Manual 1 0 - 1 [facility] Eosinophils/100 WBC (Bld) 1 % 1 - 6 % [facility] Leukocyte morphology finding Nom (Bld) Normal [facility] Lymphocytes (Bld) [#/Vol] 1.0 10*3/uL 1.0 - 4.3 10*3/uL [facility] Lymphocytes Manual 5 [facility] Lymphocytes/100 WBC (Bld) 5 % Low 20 - 40 % [facility] Metamyelocytes (Bld) [#/Vol] 0.6 10*3/uL High NINF - 0.0 10*3/uL [facility] Metamyelocytes Manual 3 [facility] Metamyelocytes/100 WBC (Bld) 3 % High NINF - 0 % [facility] Monocytes (Bld) [#/Vol] 1.4 10*3/uL High 0.0 - 0.8 10*3/uL [facility] Monocytes Manual 7 [facility] Monocytes/100 WBC (Bld) 7 % 2 - 10 % [facility] Myelocytes (Bld) [#/Vol] 0.4 10*3/uL High NINF - 0.0 10*3/uL [facility] Myelocytes Manual 2 [facility] Myelocytes/100 WBC (Bld) 2 % High NINF - 0 % [facility] Neutrophils (Bld) [#/Vol] 16.2 10*3/uL High 1.8 - 7.0 10*3/uL [facility] Neutrophils Manual 81 [facility] Ovalocytes LM Ql (Bld) Slight Abnormal (none) [facility] Platelet morphology finding Nom (Bld) Normal [facility] Polychromasia LM Ql (Bld) Slight Abnormal (none) [facility] Segmented neutrophils/100 WBC (Bld) 81 % High 40 - 80 % [facility] Stomatocytes LM Ql (Bld) Slight Abnormal (none) [facility] WBC corrected for nucl RBC (Bld) [#/Vol] 19.80 10*3/uL High 3.60 - 10.70 10*3/uL [facility] No Panel Informationon 06-17 Interpretation and review of laboratory results Abnormal [facility] Interpretation and review of laboratory results Abnormal [facility] RF videography Hypopharynx a nd Esophagus Views for swallowing function W speech and W barium contrast Jerry 06-17-2022 [facility] Radiology Study observation (narrative) [facility] RF videography Hypopharynx a nd Esophagus Views for swallowing function W speech and W barium contrast POOrdered By: Juve Odonnell on 06-17-2022 [facility] Work Phone: XR Chest Single viewon 06-[address] [facility] Radiology Study observation (narrative) [facility] CBC W Auto Differential pane l (Bld)on 06-16-2022 Erythrocyte distribution width (RBC) [Ratio] 13.6 % 11.5 - 14.5 % [facility] Hematocrit (Bld) [Volume fraction] 37.8 % Low 40.0 - 52.0 % [facility] Hemoglobin (Bld) [Mass/Vol] 12.6 g/dL Low 13.0 - 18.0 g/dL [facility] MCH (RBC) [Entitic mass] 30.6 pg 26.0 - 34.0 pg [facility] MCHC (RBC) [Mass/Vol] 33.3 % 32.0 - 36.0 % [facility] MCV (RBC) [Entitic vol] 92.0 fL 80.0 - 98.0 fL [facility] Nucleated RBC/100 WBC (Bld) [Ratio] 0.1 % [facility] Platelet mean volume (Bld) [Entitic vol] 7.9 fL 7.4 - 12.4 fL [facility] Platelets (Bld) [#/Vol] 229 10*3/uL 140 - 440 10*3/uL [facility] RBC (Bld) [#/Vol] 4.11 10*6/uL Low 4.40 - 5.9 0 10*6/uL [facility] WBC (Bld) [#/Vol] 19.9 10*3/uL High 3.6 - 10.7 10*3/uL [facility] Comprehensive metabolic 1998 panelon 06-16-2022 Albumin [Mass/Vol] 3.1 g/dL Low 3.5 - 5.0 g/dL [facility] ALP [Catalytic activity/Vol] 114 U/L 38 - 126 U/L [facility] ALT [Catalytic activity/Vol] 25 U/L 0 - 49 U/L [facility] Anion gap [Moles/Vol] 5 mmol/L 3 - 13 mmol/L [facility] AST [Catalytic activity/Vol] 36 U/L 15 - 46 U/L [facility] Bilirubin [Mass/Vol] 0.7 mg/dL 0.2 - 1 .3 mg/dL [facility] Calcium [Mass/Vol] 8.1 mg/dL Low 8.4 - 10. 4 mg/dL [facility] Chloride [Moles/Vol] 95 mmol/L Low 98 - 10 7 mmol/L [facility] CO2 [Moles/Vol] 32 mmol/L High 22 - 30 mmol/L [facility] Creatinine [Mass/Vol] 0.80 mg/dL 0.66 - 1.25 mg/dL [facility] GFR/1.73 sq M.predicted MDRD (S/P/Bld) [Vol rate/Area] - PINF [facility] Glucose [Mass/Vol] 173 mg/dL High 70 - 100 mg/dL [facility] Potassium [Moles/Vol] 4.0 mmol/L 3.5 - 5.1 mmol/L [facility] Protein [Mass/Vol] 6.2 g/dL Low 6.3 - 8.2 g/dL [facility] Sodium [Moles/Vol] 132 mmol/L Low 135 - 145 mmol/L [facility] Urea nitrogen [Mass/Vol] 16 mg/dL 9 - 20 mg/dL [facility] Laboratory - Chemistry and C hemistry - challengeon 06-16-2022 Glucose [Mass/Vol] 251 mg/dL High 70 - 100 mg/dL [facility] Ammonia (P) [Moles/Vol] 13 umol/L 9 - 30 umol/L [facility] Glucose [Mass/Vol] 175 mg/dL High 70 - 100 mg/dL [facility] Base excess Calc (Bld) [Moles/Vol] 5.0 mmol/L High -3.0 - 3.0 mmol/L [facility] CO2 (Bld) [Partial pressure] 42.3 mm[Hg] [facility] CO2 [Moles/Vol] 30.8 mmol/L High 23.0 - 27.0 mmol/L [facility] HCO3 (Bld) [Moles/Vol] 29.5 mmol/L High 21.0 - 25.0 mmol/L [facility] Oxygen (Bld) [Partial pressure] 67.7 mm[Hg] Low [facility] pH (Bld) 7.452 [pH] High 7.350 - 7.450 pH [facility] Procalcitonin [Mass/Vol] 0.46 ng/mL High 0.00 - 0.09 ng/mL [facility] Lipase [Catalytic activity/Vol] 718 U/L High 23 - 300 U/L [facility] Magnesium [Mass/Vol] 2.2 mg/dL 1.6 - 2 .3 mg/dL [facility] Laboratory - Drug toxicology on 06-16-2022 Vancomycin [Mass/Vol] 14.3 ug/mL Low 15.0 - 20.0 ug/mL [facility] Magnesium [Mass/Vol]on 06-16 Interpretation and review of laboratory results Normal [facility] [employer] Manual differential performe d Ql (Bld)on 06-16-2022 Basophilic stippling LM Ql (Bld) Rare Abnormal (none) [facility] Cells Counted Total (Bld) [#] 100 {cells} [facility] Eosinophils (Bld) [#/Vol] 0.8 10*3/uL High 0.0 - 0.5 10*3/uL [facility] [employer] Eosinophils Manual 4 High 0 - 1 [facility] Eosinophils/100 WBC (Bld) 4 % 1 - 6 % [facility] Giant platelets LM Ql (Bld) Slight Abnormal (none) [facility] Lymphocytes (Bld) [#/Vol] 0.6 10*3/uL Low 1.0 - 4.3 10*3/uL [facility] [employer] Lymphocytes Manual 3 [facility] Lymphocytes/100 WBC (Bld) 3 % Low 20 - 40 % [facility] Monocytes (Bld) [#/Vol] 1.0 10*3/uL High 0.0 - 0.8 10*3/uL [facility] Monocytes Manual 5 [facility] alth Monocytes/100 WBC (Bld) 5 % 2 - 10 % [facility] Neutrophils (Bld) [#/Vol] 17.5 10*3/uL High 1.8 - 7.0 10*3/uL [facility] Neutrophils Manual 88 [facility] Neutrophils.hypersegmen chhaya LM Ql (Bld) Present Abnormal (none) [facility] Nucleated RBC/100 WBC (Bld) [Ratio] 1 % [facility] Ovalocytes LM Ql (Bld) Slight Abnormal (none) [facility] Polychromasia LM Ql (Bld) Slight Abnormal (none) [facility] Segmented neutrophils/100 WBC (Bld) 88 % High 40 - 80 % [facility] Stomatocytes LM Ql (Bld) Slight Abnormal (none) [facility] Toxic granules LM Ql (Bld) Present Abnormal (none) [facility] WBC corrected for nucl RBC (Bld) [#/Vol] 19.90 10*3/uL High 3.60 - 10.70 10*3/uL [facility] No Panel Informationon 06-16 Interpretation and review of laboratory results Abnormal [facility] Interpretation and review of laboratory results Abnormal [facility] Interpretation and review of laboratory results Normal [facility] Interpretation and review of laboratory results Abnormal [facility] FIO2 4 [facility] Interpretation and review of laboratory results Abnormal [facility] Interpretation and review of laboratory results Abnormal [facility] Interpretation and review of laboratory results Abnormal [facility] Procalcitonin [Mass/Vol]on 0 06-16-2022 Interpretation and review of laboratory results Abnormal [facility] XR Chest Single viewon 06-16 [facility] Radiology Study observation (narrative) [facility] alth XR Chest Single viewOrdered By: Loki Roberts on 06-16-2022 [facility] Work Phone: Bacteria identified Anaer cx Nom (Unsp spec)on 06-15-2022 Interpretation and review of laboratory results Normal [facility] Bacteria identified Cx Nom ( Bld)on 06-15-2022 Interpretation and review of laboratory results Normal [facility] CBC W Auto Differential pane l (Bld)on 06-15-2022 Erythrocyte distribution width (RBC) [Ratio] 13.8 % 11.5 - 14.5 % [facility] Hematocrit (Bld) [Volume fraction] 37.1 % Low 40.0 - 52.0 % [facility] Hemoglobin (Bld) [Mass/Vol] 12.2 g/dL Low 13.0 - 18.0 g/dL [facility] MCH (RBC) [Entitic mass] 30.4 pg 26.0 - 34.0 pg [facility] MCHC (RBC) [Mass/Vol] 33.0 % 32.0 - 36.0 % [facility] MCV (RBC) [Entitic vol] 92.1 fL 80.0 - 98.0 fL [facility] Nucleated RBC/100 WBC (Bld) [Ratio] 0.1 % [facility] Platelet mean volume (Bld) [Entitic vol] 8.6 fL 7.4 - 12.4 fL [facility] Platelets (Bld) [#/Vol] 186 10*3/uL 140 - 440 10*3/uL [facility] RBC (Bld) [#/Vol] 4.03 10*6/uL Low 4.40 - 5.9 0 10*6/uL [facility] WBC (Bld) [#/Vol] 19.0 10*3/uL High 3.6 - 10.7 10*3/uL [facility] Comprehensive metabolic 1998 panelon 06-15-2022 Albumin [Mass/Vol] 3.0 g/dL Low 3.5 - 5.0 g/dL [facility] ALP [Catalytic activity/Vol] 111 U/L 38 - 126 U/L [facility] ALT [Catalytic activity/Vol] 26 U/L 0 - 49 U/L [facility] Anion gap [Moles/Vol] 0 mmol/L Low 3 - 13 mmol/L [facility] AST [Catalytic activity/Vol] 29 U/L 15 - 46 U/L [facility] Bilirubin [Mass/Vol] 0.6 mg/dL 0.2 - 1 .3 mg/dL [facility] Calcium [Mass/Vol] 8.0 mg/dL Low 8.4 - 10. 4 mg/dL [facility] Chloride [Moles/Vol] 95 mmol/L Low 98 - 10 7 mmol/L [facility] CO2 [Moles/Vol] 33 mmol/L High 22 - 30 mmol/L [facility] Creatinine [Mass/Vol] 0.81 mg/dL 0.66 - 1.25 mg/dL [facility] GFR/1.73 sq M.predicted MDRD (S/P/Bld) [Vol rate/Area] - PINF [facility] Glucose [Mass/Vol] 175 mg/dL High 70 - 100 mg/dL [facility] Interpretation and review of laboratory results Abnormal [facility] Potassium [Moles/Vol] 4.2 mmol/L 3.5 - 5.1 mmol/L [facility] Protein [Mass/Vol] 6.0 g/dL Low 6.3 - 8.2 g/dL [facility] Sodium [Moles/Vol] 128 mmol/L Low 135 - 145 mmol/L [facility] Urea nitrogen [Mass/Vol] 10 mg/dL 9 - 20 mg/dL [facility] Creatinine (U) [Mass/Vol]on 06-15-2022 CREATININE, URINE 89.1 mg/dL No [facility] Laboratory - Chemistry and C hemistry - challengeon 06-15-2022 Sodium (24H U) [Mass/Vol] 139 mmol/L High 30 - 90 mmol/L [facility] Chloride (U) [Moles/Vol] 109 mmol/L 19 - 209 mmol/L [facility] Magnesium [Mass/Vol] 2.3 mg/dL 1.6 - 2 .3 mg/dL [facility] Laboratory - Drug toxicology on 06-15-2022 Valproate [Mass/Vol] ug/mL Low 50 - 12 0 ug/mL [facility] Laboratory - Microbiology an d Antimicrobial susceptibilityon 06-15-2022 Bacteria identified Cx Nom (Bld) No growth at 5 days [facility] Bacteria identified Anaer cx Nom (Unsp spec) No growth at 5 days [facility] Laboratory - Urinalysison Protein (U) [Mass/Vol] 104 mg/dL High 0 - 1 2 mg/dL [facility] Magnesium [Mass/Vol]on 06-15 Interpretation and review of laboratory results Normal [facility] Manual differential performe d Ql (Bld)on 06-15-2022 Anisocytosis Ql (Bld) Slight Abnormal (none) [facility] Cells Counted Total (Bld) [#] 100 {cells} [facility] Eosinophils (Bld) [#/Vol] 1.0 10*3/uL High 0.0 - 0.5 10*3/uL [facility] Eosinophils Manual 5 High 0 - 1 [facility] Eosinophils/100 WBC (Bld) 5 % 1 - 6 % [facility] Leukocyte morphology finding Nom (Bld) Normal [facility] Lymphocytes (Bld) [#/Vol] 1.1 10*3/uL 1.0 - 4.3 10*3/uL [facility] Lymphocytes Manual 6 [facility] Lymphocytes/100 WBC (Bld) 6 % Low 20 - 40 % [facility] Metamyelocytes (Bld) [#/Vol] 0.2 10*3/uL High NINF - 0.0 10*3/uL [facility] Metamyelocytes Manual 1 [facility] Metamyelocytes/100 WBC (Bld) 1 % High NINF - 0 % [facility] Monocytes (Bld) [#/Vol] 1.1 10*3/uL High 0.0 - 0.8 10*3/uL [facility] Monocytes Manual 6 [facility] alth Monocytes/100 WBC (Bld) 6 % 2 - 10 % [facility] Myelocytes (Bld) [#/Vol] 0.4 10*3/uL High NINF - 0.0 10*3/uL [facility] Myelocytes Manual 2 [facility] ealth Myelocytes/100 WBC (Bld) 2 % High NINF - 0 % [facility] Neutrophils (Bld) [#/Vol] 15.2 10*3/uL High 1.8 - 7.0 10*3/uL [facility] Neutrophils Manual 80 [facility] Ovalocytes LM Ql (Bld) Slight Abnormal (none) [facility] Platelet morphology finding Nom (Bld) Normal [facility] Polychromasia LM Ql (Bld) Slight Abnormal (none) [facility] Segmented neutrophils/100 WBC (Bld) 80 % 40 - 80 % [facility] Stomatocytes LM Ql (Bld) Slight Abnormal (none) [facility] WBC corrected for nucl RBC (Bld) [#/Vol] 19.00 10*3/uL High 3.60 - 10.70 10*3/uL [facility] No Panel Informationon 03-08 -2023 Interpretation and review of laboratory results Abnormal [facility] Interpretation and review of laboratory results Normal [facility] Interpretation and review of laboratory results Normal [facility] OSMOLALITY, URINE 598 [facility] ealth [facility] Interpretation and review of laboratory results Abnormal [facility] Interpretation and review of laboratory results Abnormal [facility] Respiratory pathogens DNA an d RNA panel FAN+non-probe (Lower resp)on 06-15-2022 Acinetobacter baumannii complex Not detected Not Detected [facility] Adenovirus Not detected Not Detected [facility] Chlamydia pneumoniae Not detected Not Detected [facility] Enterobacter cloacae complex Not detected Not Detected [facility] Escherichia coli Not detected Not Detected [facility] FLUAV RNA FAN+non-probe Ql (Lower resp) Not detected Not Detected [facility] FLUBV RNA FAN+non-probe Ql (Lower resp) Not detected Not Detected [facility] Haemophilus influenzae Not detected Not Detected [facility] Human Metapneumovirus Not detected Not Detected [facility] Human Rhinovirus/Enterovirus Not detected Not Detected [facility] Interpretation and review of laboratory results Abnormal [facility] Klebsiella (Enterobacter) aerogenes Not detected Not Detected [facility] Klebsiella oxytoca Not detected Not Detected [facility] Klebsiella pneumoniae Not detected Not Detected [facility] Legionella pneumophila Not detected Not Detected [facility] Moraxella catarrhalis Not detected Not Detected [facility] Mycoplasma pneumoniae Not detected Not Detected [facility] Parainfluenza virus Not detected Not Detected [facility] Proteus spp Not detected Not Detected [facility] Pseudomonas aeruginosa Not detected Not Detected [facility] RSV RNA FAN+probe Ql (Resp) Not detected Not Detected [facility] S. agalactiae Org specific cx Ql (Vag fld) Not detected Not Detected [facility] SARS-CoV-2 (COVID-19) RNA FAN+probe Ql (Unsp spec) Detected Abnormal Not Detected [facility] Serratia marcescens Not detected Not Detected [facility] Staphylococcus aureus Not detected Not Detected [facility] Streptococcus pneumoniae Not detected Not Detected [facility] Streptococcus pyogenes Not detected Not Detected [facility] Urinalysis complete panel (U )Ordered By: Miranda Ware on 06-15-2022 Bacteria LM.HPF (Urine sed) [#/Area] Negative Negative /HPF [facility] Bilirubin Ql (U) Negative Negative mg/dL [facility] Clarity (U) Slightly Cloudy Abnormal Clear [facility]th Color (U) Yellow Lt. Yellow [facility] Epithelial cells.squamous LM.HPF (Urine sed) [#/Area] Negative [facility] h Glucose Ql (U) 500 mg/dL Abnormal Normal (<70) [facility] Hemoglobin Ql (U) >1.0 Abnormal Negative mg/dL [facility] Interpretation and review of laboratory results Abnormal [facility] Ketones (U) [Mass/Vol] 20 mg/dL Abnormal Negative [facility] Leukocyte esterase Test strip Ql (U) Negative Negative Chika/uL [facility] Mucus LM.HPF (Urine sed) [#/Area] Few Negative /LPF [facility] Nitrite Ql (U) Negative Negative [facility] th pH (U) 6.5 [pH] 5.0 - 8.0 pH [facility] Protein (U) [Mass/Vol] 100 mg/dL Abnormal Negative [facility] RBC LM.HPF (Urine sed) [#/Area] /[HPF] Abnormal [facility] Specific gravity (U) [Rel density] 1.026 1.005 - 1.030 [facility] Urobilinogen (U) [Mass/Vol] 6 mg/dL Abnormal Normal (0-1) [facility] WBC LM.HPF (Urine sed) [#/Area] 6-10 Abnormal [facility] XR Chest Single viewon 06-15 [facility] Radiology Study observation (narrative) [facility] alth XR Chest Single viewOrdered By: Chaz Poon on 06-15-2022 [facility] Work Phone: Bacteria identified Aer cx N om (Lower resp)Ordered By: Jan Arvizu on 06-14-2022 Gram Stain Result Rare Epithelial cell s per low power field [facility] Gram Stain Result Moderate Polymorphonuclear leukocytes per low power field [facility] Gram Stain Result No organisms seen [facility] CBC W Auto Differential pane l (Bld)on 06-14-2022 Erythrocyte distribution width (RBC) [Ratio] 13.6 % 11.5 - 14.5 % [facility] Hematocrit (Bld) [Volume fraction] 36.3 % Low 40.0 - 52.0 % [facility] Hemoglobin (Bld) [Mass/Vol] 12.2 g/dL Low 13.0 - 18.0 g/dL [facility] MCH (RBC) [Entitic mass] 30.7 pg 26.0 - 34.0 pg [facility] MCHC (RBC) [Mass/Vol] 33.7 % 32.0 - 36.0 % [facility] MCV (RBC) [Entitic vol] 91.1 fL 80.0 - 98.0 fL [facility] Nucleated RBC/100 WBC (Bld) [Ratio] 0.0 % [facility] Platelet mean volume (Bld) [Entitic vol] 8.7 fL 7.4 - 12.4 fL [facility] Platelets (Bld) [#/Vol] 166 10*3/uL 140 - 440 10*3/uL [facility] RBC (Bld) [#/Vol] 3.98 10*6/uL Low 4.40 - 5.9 0 10*6/uL [facility] WBC (Bld) [#/Vol] 18.7 10*3/uL High 3.6 - 10.7 10*3/uL [facility] CRP [Mass/Vol]on 06-14-2022 Interpretation and review of laboratory results Abnormal [facility] Comprehensive metabolic 1998 panelon 06-14-2022 Albumin [Mass/Vol] 2.9 g/dL Low 3.5 - 5.0 g/dL [facility] ALP [Catalytic activity/Vol] 106 U/L 38 - 126 U/L [facility] ALT [Catalytic activity/Vol] 36 U/L 0 - 49 U/L [facility] Anion gap [Moles/Vol] -3 mmol/L Low 3 - 13 mmol/L [facility] AST [Catalytic activity/Vol] 41 U/L 15 - 46 U/L [facility] Bilirubin [Mass/Vol] 0.7 mg/dL 0.2 - 1 .3 mg/dL [facility] Calcium [Mass/Vol] 7.9 mg/dL Low 8.4 - 10. 4 mg/dL [facility] Chloride [Moles/Vol] 98 mmol/L 98 - 10 7 mmol/L [facility] CO2 [Moles/Vol] 32 mmol/L High 22 - 30 mmol/L [facility] Creatinine [Mass/Vol] 0.71 mg/dL 0.66 - 1.25 mg/dL [facility] GFR/1.73 sq M.predicted MDRD (S/P/Bld) [Vol rate/Area] - PINF [facility] Glucose [Mass/Vol] 171 mg/dL High 70 - 100 mg/dL [facility] Interpretation and review of laboratory results Abnormal [facility] Potassium [Moles/Vol] 4.2 mmol/L 3.5 - 5.1 mmol/L [facility] Protein [Mass/Vol] 5.9 g/dL Low 6.3 - 8.2 g/dL [facility] Sodium [Moles/Vol] 127 mmol/L Low 135 - 145 mmol/L [facility] Urea nitrogen [Mass/Vol] 8 mg/dL Low 9 - 20 mg/dL [facility] Laboratory - Chemistry and C hemistry - challengeon 06-14-2022 Procalcitonin [Mass/Vol] 0.47 ng/mL High 0.00 - 0.09 ng/mL [facility] CRP [Mass/Vol] 195.0 mg/L High NINF - 10.0 mg/L [facility] Magnesium [Mass/Vol] 2.2 mg/dL 1.6 - 2 .3 mg/dL [facility] Lipase [Catalytic activity/Vol] 434 U/L High 23 - 300 U/L [facility] Laboratory - Microbiology an d Antimicrobial susceptibilityOrdered By: Jan Arvizu on 06-14-2022 Bacteria identified Aer cx Nom (Lower resp) Rare respiratory vikram present. [facility] Lipase [Catalytic activity/V ol]on 06-14-2022 Interpretation and review of laboratory results Abnormal [facility] Magnesium [Mass/Vol]on 06-14 Interpretation and review of laboratory results Normal [facility] Manual differential performe d Ql (Bld)on 06-14-2022 Anisocytosis Ql (Bld) Slight Abnormal (none) [facility] Band form neutrophils (Bld) [#/Vol] 0.2 10*3/uL High NINF - 0.0 10*3/uL [facility] Band form neutrophils/100 WBC (Bld) 1 % High NINF - 0 % [facility] Bands Manual 1 [facility] Cells Counted Total (Bld) [#] 100 {cells} [facility] Eosinophils (Bld) [#/Vol] 0.7 10*3/uL High 0.0 - 0.5 10*3/uL [facility] Eosinophils Manual 4 High 0 - 1 [facility] Eosinophils/100 WBC (Bld) 4 % 1 - 6 % [facility] Leukocyte morphology finding Nom (Bld) Normal [facility] Lymphocytes (Bld) [#/Vol] 1.9 10*3/uL 1.0 - 4.3 10*3/uL [facility] Lymphocytes Manual 10 [facility] Lymphocytes/100 WBC (Bld) 10 % Low 20 - 40 % [facility] Monocytes (Bld) [#/Vol] 0.6 10*3/uL 0.0 - 0.8 10*3/uL [facility] Monocytes Manual 3 [facility] alth Monocytes/100 WBC (Bld) 3 % 2 - 10 % S [facility] Myelocytes (Bld) [#/Vol] 0.4 10*3/uL High NINF - 0.0 10*3/uL [facility] Myelocytes Manual 2 [facility] Myelocytes/100 WBC (Bld) 2 % High NINF - 0 % [facility] Neutrophils (Bld) [#/Vol] 15.1 10*3/uL High 1.8 - 7.0 10*3/uL [facility] Neutrophils Manual 80 [facility] Nucleated RBC/100 WBC (Bld) [Ratio] 1 % [facility] Ovalocytes LM Ql (Bld) Slight Abnormal (none) [facility] Platelet morphology finding Nom (Bld) Normal [facility] Polychromasia LM Ql (Bld) Slight Abnormal (none) [facility] Segmented neutrophils/100 WBC (Bld) 80 % 40 - 80 % [facility] WBC corrected for nucl RBC (Bld) [#/Vol] 18.70 10*3/uL High 3.60 - 10.70 10*3/uL [facility] No Panel Informationon 06-14 Interpretation and review of laboratory results Abnormal [facility] Procalcitonin [Mass/Vol]on 0 06-14-2022 Interpretation and review of laboratory results Abnormal [facility] Bacteria identified Aer cx N om (Unsp spec)Ordered By: Des Boston on 06-13-2022 Gram Stain Result Rare Polymorphonucle ar leukocytes per low power field [facility] Gram Stain Result No organisms seen [facility] CBC W Auto Differential pane l (Bld)on 06-13-2022 Basophils (Bld) [#/Vol] 0.1 10*3/uL 0.0 - 0.2 10*3/uL [facility] Basophils/100 WBC (Bld) 0.4 % 0.0 - 2.0 % [facility] Eosinophils (Bld) [#/Vol] 0.2 10*3/uL 0.0 - 0.5 10*3/uL [facility] Eosinophils/100 WBC (Bld) 1.6 % 1.0 - 6.0 % [facility] Erythrocyte distribution width (RBC) [Ratio] 13.3 % 11.5 - 14.5 % [facility] Hematocrit (Bld) [Volume fraction] 35.5 % Low 40.0 - 52.0 % [facility] Hemoglobin (Bld) [Mass/Vol] 11.9 g/dL Low 13.0 - 18.0 g/dL [facility] Interpretation and review of laboratory results Abnormal [facility] Lymphocytes (Bld) [#/Vol] 1.1 10*3/uL 1.0 - 4.3 10*3/uL [facility] Lymphocytes/100 WBC (Bld) 7.8 % Low 20.0 - 40.0 % [facility] MCH (RBC) [Entitic mass] 30.9 pg 26.0 - 34.0 pg [facility] MCHC (RBC) [Mass/Vol] 33.5 % 32.0 - 36.0 % [facility] MCV (RBC) [Entitic vol] 92.0 fL 80.0 - 98.0 fL [facility] Monocytes (Bld) [#/Vol] 1.4 10*3/uL High 0.0 - 0.8 10*3/uL [facility] Monocytes/100 WBC (Bld) 9.8 % 2.0 - 10.0 % [facility] Neutrophils (Bld) [#/Vol] 11.6 10*3/uL High 1.8 - 7.0 10*3/uL [facility] Neutrophils/100 WBC (Bld) 80.4 % High 40.0 - 80.0 % [facility] Nucleated RBC/100 WBC (Bld) [Ratio] 0.0 % [facility] [employer] Platelet mean volume (Bld) [Entitic vol] 8.8 fL 7.4 - 12.4 fL [facility] Platelets (Bld) [#/Vol] 135 10*3/uL Low 140 - 440 10*3/uL [facility] RBC (Bld) [#/Vol] 3.86 10*6/uL Low 4.40 - 5.9 0 10*6/uL [facility] WBC (Bld) [#/Vol] 14.4 10*3/uL High 3.6 - 10.7 10*3/uL [facility] CT Abdomen and Pelvis W cont rast Constantine 06-13-2022 [facility] RADIOLOGY [facility] RADIOLOGY [facility] Radiology Study observation (narrative) [facility] CT Abdomen and Pelvis W cont rast IVOrdered By: Merrick Lopez on 06-13-2022 [facility] Work Phone: Comprehensive metabolic 1998 panelon 06-13-2022 Albumin [Mass/Vol] 2.7 g/dL Low 3.5 - 5.0 g/dL [facility] ALP [Catalytic activity/Vol] 77 U/L 38 - 126 U/L [facility] ALT [Catalytic activity/Vol] 26 U/L 0 - 49 U/L [facility] Anion gap [Moles/Vol] 0 mmol/L Low 3 - 13 mmol/L [facility] AST [Catalytic activity/Vol] 35 U/L 15 - 46 U/L [facility] Bilirubin [Mass/Vol] 0.8 mg/dL 0.2 - 1 .3 mg/dL [facility] Calcium [Mass/Vol] 7.3 mg/dL Low 8.4 - 10. 4 mg/dL [facility] Chloride [Moles/Vol] 100 mmol/L 98 - 10 7 mmol/L [facility] CO2 [Moles/Vol] 29 mmol/L 22 - 30 mmol/L [facility] Creatinine [Mass/Vol] 0.76 mg/dL 0.66 - 1.25 mg/dL [facility] GFR/1.73 sq M.predicted MDRD (S/P/Bld) [Vol rate/Area] - PINF [facility] Glucose [Mass/Vol] 189 mg/dL High 70 - 100 mg/dL [facility] Interpretation and review of laboratory results Abnormal [facility] Potassium [Moles/Vol] 4.0 mmol/L 3.5 - 5.1 mmol/L [facility] Protein [Mass/Vol] 5.6 g/dL Low 6.3 - 8.2 g/dL [facility] Sodium [Moles/Vol] 129 mmol/L Low 135 - 145 mmol/L [facility] Urea nitrogen [Mass/Vol] 8 mg/dL Low 9 - 20 mg/dL [facility] Laboratory - Chemistry and C hemistry - challengeon 06-13-2022 Magnesium [Mass/Vol] 2.3 mg/dL 1.6 - 2 .3 mg/dL [facility] Laboratory - Microbiology an d Antimicrobial susceptibilityOrdered By: Des Boston on 06-13-2022 Bacteria identified Aer cx Nom (Unsp spec) No growth at 72 hours [facility] Magnesium [Mass/Vol]on 06-13 Interpretation and review of laboratory results Normal [facility] No Panel Informationon 06-13 [facility] US Abdomen limitedon 023 [facility] RADIOLOGY SYSTEM [facility] RADIOLOG[facility] Radiology Study observation (narrative) [facility] alth CBC W Auto Differential pane l (Bld)Ordered By: Angelica Bennett on 06-12-2022 Basophils (Bld) [#/Vol] 0.1 10*3/uL 0.0 - 0.2 10*3/uL [facility] Basophils/100 WBC (Bld) 0.5 % 0.0 - 2.0 % [facility] Eosinophils (Bld) [#/Vol] 0.2 10*3/uL 0.0 - 0.5 10*3/uL [facility] Eosinophils/100 WBC (Bld) 1.5 % 1.0 - 6.0 % [facility] Erythrocyte distribution width (RBC) [Ratio] 13.8 % 11.5 - 14.5 % [facility] Hematocrit (Bld) [Volume fraction] 35.4 % Low 40.0 - 52.0 % [facility] Hemoglobin (Bld) [Mass/Vol] 11.8 g/dL Low 13.0 - 18.0 g/dL [facility] Interpretation and review of laboratory results Abnormal [facility] Lymphocytes (Bld) [#/Vol] 1.5 10*3/uL 1.0 - 4.3 10*3/uL [facility] Lymphocytes/100 WBC (Bld) 13.0 % Low 20.0 - 40.0 % [facility] MCH (RBC) [Entitic mass] 31.0 pg 26.0 - 34.0 pg [facility] MCHC (RBC) [Mass/Vol] 33.4 % 32.0 - 36.0 % [facility] MCV (RBC) [Entitic vol] 92.8 fL 80.0 - 98.0 fL [facility] Monocytes (Bld) [#/Vol] 1.2 10*3/uL High 0.0 - 0.8 10*3/uL [facility] Monocytes/100 WBC (Bld) 10.2 % High 2.0 - 10.0 % [facility] Neutrophils (Bld) [#/Vol] 8.9 10*3/uL High 1.8 - 7.0 10*3/uL [facility] Neutrophils/100 WBC (Bld) 74.8 % 40.0 - 80.0 % [facility] Nucleated RBC/100 WBC (Bld) [Ratio] 0.0 % [facility] Platelet mean volume (Bld) [Entitic vol] 9.4 fL 7.4 - 12.4 fL [facility] Platelets (Bld) [#/Vol] 121 10*3/uL Low 140 - 440 10*3/uL [facility] RBC (Bld) [#/Vol] 3.82 10*6/uL Low 4.40 - 5.9 0 10*6/uL [facility] WBC (Bld) [#/Vol] 11.9 10*3/uL High 3.6 - 10.7 10*3/uL [facility] Comprehensive metabolic 1998 panelon 06-12-2022 Albumin [Mass/Vol] 2.6 g/dL Low 3.5 - 5.0 g/dL [facility] ALP [Catalytic activity/Vol] 67 U/L 38 - 126 U/L [facility] ALT [Catalytic activity/Vol] 17 U/L 0 - 49 U/L [facility] Anion gap [Moles/Vol] -3 mmol/L Low 3 - 13 mmol/L [facility] AST [Catalytic activity/Vol] 29 U/L 15 - 46 U/L [facility] Bilirubin [Mass/Vol] 1.1 mg/dL 0.2 - 1 .3 mg/dL [facility] Calcium [Mass/Vol] 7.0 mg/dL Low 8.4 - 10. 4 mg/dL [facility] Chloride [Moles/Vol] 104 mmol/L 98 - 10 7 mmol/L [facility] CO2 [Moles/Vol] 27 mmol/L 22 - 30 mmol/L [facility] Creatinine [Mass/Vol] 0.84 mg/dL 0.66 - 1.25 mg/dL [facility] GFR/1.73 sq M.predicted MDRD (S/P/Bld) [Vol rate/Area] - PINF [facility] Glucose [Mass/Vol] 140 mg/dL High 70 - 100 mg/dL [facility] Potassium [Moles/Vol] 4.1 mmol/L 3.5 - 5.1 mmol/L [facility] Protein [Mass/Vol] 5.2 g/dL Low 6.3 - 8.2 g/dL [facility] Sodium [Moles/Vol] 129 mmol/L Low 135 - 145 mmol/L [facility] Urea nitrogen [Mass/Vol] 11 mg/dL 9 - 20 mg/dL [facility] Laboratory - Chemistry and C hemistry - challengeon 06-12-2022 Lipase [Catalytic activity/Vol] 339 U/L High 23 - 300 U/L [facility] Magnesium [Mass/Vol] 2.0 mg/dL 1.6 - 2 .3 mg/dL [facility] Magnesium [Mass/Vol]on 06-12 Interpretation and review of laboratory results Normal [facility] No Panel InformationOrdered By: Sonia Rodriguez on 06-12-2022 Right Pop Rfx 1.0 s [facility] h Work Phone: No Panel Informationon 06-12 CV CPACS Interpretation and review of laboratory results Abnormal [facility] Respiratory pathogens DNA an d RNA panel FAN+non-probe (Lower resp)on 06-12-2022 Acinetobacter baumannii complex Not detected Not Detected [facility] Adenovirus Not detected Not Detected [facility] Chlamydia pneumoniae Not detected Not Detected [facility] Enterobacter cloacae complex Not detected Not Detected [facility] Escherichia coli Not detected Not Detected [facility] FLUAV RNA FAN+non-probe Ql (Lower resp) Not detected Not Detected [facility] FLUBV RNA FAN+non-probe Ql (Lower resp) Not detected Not Detected [facility] Haemophilus influenzae Not detected Not Detected [facility] Human Metapneumovirus Not detected Not Detected [facility] Human Rhinovirus/Enterovirus Not detected Not Detected [facility] Interpretation and review of laboratory results Normal [facility] Klebsiella (Enterobacter) aerogenes Not detected Not Detected [facility] Klebsiella oxytoca Not detected Not Detected [facility] Klebsiella pneumoniae Not detected Not Detected [facility] Legionella pneumophila Not detected Not Detected [facility] Moraxella catarrhalis Not detected Not Detected [facility] Mycoplasma pneumoniae Not detected Not Detected [facility] Parainfluenza virus Not detected Not Detected [facility] Proteus spp Not detected Not Detected [facility] Pseudomonas aeruginosa Not detected Not Detected [facility] RSV RNA FAN+probe Ql (Resp) Not detected Not Detected [facility] S. agalactiae Org specific cx Ql (Vag fld) Not detected Not Detected [facility] SARS-CoV-2 (COVID-19) RNA FAN+probe Ql (Unsp spec) Not detected Not Detected [facility] Serratia marcescens Not detected Not Detected [facility] Staphylococcus aureus Not detected Not Detected [facility] Streptococcus pneumoniae Not detected Not Detected [facility] Streptococcus pyogenes Not detected Not Detected [facility] Vascular US lower extremity venous duplex bilateralon 06-12-2022 No evidence of deep vein and superficial thrombosis in the right lower extremity. No evidence of deep vein and superficial thrombosis in the left lower extremity. Right Lower Venous No evidence of deep vein and superficial thrombosis in the right lower extremity. Common Femoral Vein: Patent, normal phasicity, spontaneous, normal augmentation, compressible. Greater Saphenous Vein: Entire vessel patent, compressible Saphenofemoral Junction: Patent, compressible. Profunda Femoral Vein: Patent. Femoral Vein: Patent, normal phasicity, spontaneous, normal augmentation, compressible Popliteal Vein: Patent, normal phasicity, spontaneous, normal augmentation, compressible. Gastrocnemius Vein: Patent, compressible. Soleal Vein: Not visualized. Posterior Tibial Vein: Patent, compressible. Peroneal Vein: Patent, compressible. Peroneal vein was visualized in segments. Left Lower Venous No evidence of deep vein and superficial thrombosis in the left lower extremity. Common Femoral Vein: Patent, normal phasicity, spontaneous, normal augmentation, compressible. Greater Saphenous Vein: Enitre vessel patent, compressible. Saphenofemoral Junction: Patent, compressible. Profunda Femoral Vein: Patent. Femoral Vein: Patent, normal phasicity, spontaneous, normal augmentation, compressible. Popliteal Vein: Patent, normal phasicity, spontaneous, normal augmentation, compressible. Gastrocnemius Vein: Patent, compressible. Soleal Vein: Not visualized. Posterior Tibial Vein: Patent, compressible. Peroneal Vein: Patent, compressible. Great saphenous and peroneal veins were visualized in segments. [employer] Details A villegas scale, color Doppler imaging and spectral Doppler analysis ultrasound was performed. During the study longitudinal and transverse views were obtained. Pulsed wave doppler was performed. The exam was performed with the patient in the supine position. Overall the study quality was adequate. CV CPACS XR Chest Single viewon 06-12 [facility] Rad[facility]narrative[facility] Single viewOrdered By: Asad Mccarthy on 06-12-2022 [facility] [employer] Phone: XR Foot - right 3 Viewson [facility] Rad[facility] observation (narrative) [facility] Foot - right 3 ViewsOrder ed By: Ezra Guthrie on 06-12-2022 [facility] [employer] Work Phone: CBC W Auto Differential pane l (Bld)Ordered By: Jacobo Ward on 06-11-2022 Basophils (Bld) [#/Vol] 0.0 10*3/uL 0.0 - 0.2 10*3/uL [facility] Basophils/100 WBC (Bld) 0.2 % 0.0 - 2.0 % [facility] Eosinophils (Bld) [#/Vol] 0.0 10*3/uL 0.0 - 0.5 10*3/uL [facility] Eosinophils/100 WBC (Bld) 0.2 % Low 1.0 - 6.0 % [facility] Erythrocyte distribution width (RBC) [Ratio] 13.8 % 11.5 - 14.5 % [facility] Hematocrit (Bld) [Volume fraction] 41.0 % 40.0 - 52.0 % [facility] Hemoglobin (Bld) [Mass/Vol] 13.8 g/dL 13.0 - 18.0 g/dL [facility] Interpretation and review of laboratory results Abnormal [facility] Lymphocytes (Bld) [#/Vol] 1.8 10*3/uL 1.0 - 4.3 10*3/uL [facility] Lymphocytes/100 WBC (Bld) 10.4 % Low 20.0 - 40.0 % [facility] MCH (RBC) [Entitic mass] 31.5 pg 26.0 - 34.0 pg [facility] MCHC (RBC) [Mass/Vol] 33.7 % 32.0 - 36.0 % [facility] MCV (RBC) [Entitic vol] 93.3 fL 80.0 - 98.0 fL [facility] Monocytes (Bld) [#/Vol] 1.5 10*3/uL High 0.0 - 0.8 10*3/uL [facility] Monocytes/100 WBC (Bld) 8.5 % 2.0 - 10.0 % [facility] Neutrophils (Bld) [#/Vol] 14.0 10*3/uL High 1.8 - 7.0 10*3/uL [facility] Neutrophils/100 WBC (Bld) 80.7 % High 40.0 - 80.0 % [facility] Nucleated RBC/100 WBC (Bld) [Ratio] 0.0 % [facility] Platelet mean volume (Bld) [Entitic vol] 9.1 fL 7.4 - 12.4 fL [facility] Platelets (Bld) [#/Vol] 132 10*3/uL Low 140 - 440 10*3/uL [facility] RBC (Bld) [#/Vol] 4.40 10*6/uL 4.40 - 5.9 0 10*6/uL [facility] WBC (Bld) [#/Vol] 17.3 10*3/uL High 3.6 - 10.7 10*3/uL [facility] Comprehensive metabolic 1998 panelon 06-11-2022 Albumin [Mass/Vol] 2.9 g/dL Low 3.5 - 5.0 g/dL [facility] ALP [Catalytic activity/Vol] 69 U/L 38 - 126 U/L [facility] ALT [Catalytic activity/Vol] 15 U/L 0 - 49 U/L [facility] Anion gap [Moles/Vol] 1 mmol/L Low 3 - 13 mmol/L [facility] AST [Catalytic activity/Vol] 30 U/L 15 - 46 U/L [facility] Bilirubin [Mass/Vol] 1.2 mg/dL 0.2 - 1 .3 mg/dL [facility] Calcium [Mass/Vol] 7.0 mg/dL Low 8.4 - 10. 4 mg/dL [facility] Chloride [Moles/Vol] 104 mmol/L 98 - 10 7 mmol/L [facility] CO2 [Moles/Vol] 29 mmol/L 22 - 30 mmol/L [facility] Creatinine [Mass/Vol] 0.97 mg/dL 0.66 - 1.25 mg/dL [facility] GFR/1.73 sq M.predicted MDRD (S/P/Bld) [Vol rate/Area] 89.9 mL/min/{1.73_m2} - PINF [facility] Glucose [Mass/Vol] 145 mg/dL High 70 - 100 mg/dL [facility] Interpretation and review of laboratory results Abnormal [facility] Potassium [Moles/Vol] 4.3 mmol/L 3.5 - 5.1 mmol/L [facility] Protein [Mass/Vol] 5.7 g/dL Low 6.3 - 8.2 g/dL [facility] Sodium [Moles/Vol] 133 mmol/L Low 135 - 145 mmol/L [facility] Urea nitrogen [Mass/Vol] 16 mg/dL 9 - 20 mg/dL [facility] Laboratory - Chemistry and C hemistry - challengeon 06-11-2022 Magnesium [Mass/Vol] 2.1 mg/dL 1.6 - 2 .3 mg/dL [facility] Magnesium [Mass/Vol]on 06-11 Interpretation and review of laboratory results Normal [facility] No Panel Informationon 06-11 [facility] Laboratory - Chemistry and C hemistry - challengeOrdered By: Julissa Taylor on 06-10-2022 Triglyceride [Mass/Vol] 125 mg/dL NINF - 150 mg/dL [facility] No Panel InformationOrdered By: Ajay Cobos on 06-10-2022 Interpretation and review of laboratory results Normal [facility] Legionella pneumophila Ag Not detected Not Detected [facility] Streptococcus pneumoniae Ag Not detected Not Detected [facility] No Panel Informationon 06-10 [facility] RADIOLOGY SYSTEM [facility] Radiology Study observation (narrative) [facility] No Panel InformationOrdered By: Jus Barlow on 06-10-2022 [facility] Work Phone: Respiratory pathogens DNA an d RNA panel FAN+probe (Nph)on 06-10-2022 Adenovirus Not detected Not Detected [facility] B. pertussis DNA FAN+probe Ql (Unsp spec) Not detected Not Detected [facility] Bordetella parapertussis Not detected Not Detected [facility] Chlamydia pneumoniae Not detected Not Detected [facility] Coronavirus 229E Not detected Not Detected [facility] Coronavirus HKU1 Not detected Not Detected [facility] Coronavirus NL63 Not detected Not Detected [facility] Coronavirus OC43 Not detected Not Detected [facility] FLUAV RNA FAN+non-probe Ql (Nph) Not detected Not Detected [facility] FLUBV RNA FAN+non-probe Ql (Nph) Not detected Not Detected [facility] Human Metapneumovirus Not detected Not Detected [facility] Human Rhinovirus/Enterovirus Not detected Not Detected [facility] Interpretation and review of laboratory results Normal [facility] Mycoplasma pneumoniae Not detected Not Detected [facility] Parainfluenza 1 Not detected Not Detected [facility] Parainfluenza 2 Not detected Not Detected [facility] Parainfluenza 3 Not detected Not Detected [facility] Parainfluenza 4 Not detected Not Detected [facility] Respiratory Syncytial Virus Not detected Not Detected [facility] SARS-CoV-2 (COVID-19) RNA FAN+non-probe Ql (Nph) Not detected Not Detected [facility] Triglyceride [Mass/Vol]Order ed By: Julissa Taylor on 06-10-2022 Interpretation and review of laboratory results Normal [facility] Urinalysis complete panel (U )Ordered By: Bia Covington on 06-10-2022 Bacteria LM.HPF (Urine sed) [#/Area] Negative Negative /HPF [facility] Glucose Ql (U) >1,000 Abnormal Normal (<70) mg/dL [facility] Leukocyte esterase Test strip Ql (U) Negative Negative Chika/uL [facility] Protein (U) [Mass/Vol] 200 mg/dL Abnormal Negative [facility] RBC LM.HPF (Urine sed) [#/Area] 0-2 [facility] WBC LM.HPF (Urine sed) [#/Area] 3-5 [facility] Basophil percentageOrdered B y: Demetrius Fenton on 05-20-2022 Chloride [Moles/Vol] 105 mmol/L 98-107 [facility] Glucose [Mass/Vol] 144 mg/dL 74-106 [facility] Comment on above: Fasting Glucose resu lt greater than or equal to 126 mg/dL suggests DIABETES MELLITUS per A.D.A. criteria. Potassium [Moles/Vol] 4.9 mmol/L 3.5-5.1 [facility] Sodium [Moles/Vol] 138 mmol/L 136-145 [facility] Laboratory - Chemistry and C hemistry - challengeOrdered By: Demetrius Fenton on 05-20-2022 CO2 [Moles/Vol] 26.0 mmol/L 21.0-32.0 [facility] Urea nitrogen/Creatinine [Mass ratio] 20.7 mg/mg 10- [facility] No Panel InformationOrdered By: Demetrius Fenton on 05-20-2022 Estimated GFR (MDRD) Amer 62 mL/min >60 [facility] Comment on above: GFR Calc Estimated GFR (MDRD) Non-Af Amer 51 mL/min >60 [facility] Comment on above: Non- GFR Calc Serum or plasma calcium roseanne urement (mass/volume)Ordered By: Demetrius Fenton on 05-20-2022 Calcium [Mass/Vol] 8.9 mg/dL 8.5-10.1 [facility] Serum or plasma creatinine m easurement (mass/volume)Ordered By: Demetrius Fenton on 05-20-2022 Creatinine [Mass/Vol] 1.50 mg/dL 0.70-1.30 [facility] Comment on above: The validity of the calculated GFR & GFRAA in patients over 70 years has not been determined. Clinical correlation is essential. Serum or plasma urea nitroge n measurement (mass/volume)Ordered By: Demetrius Fenton on 05-20-2022 Urea nitrogen [Mass/Vol] 31 mg/dL 7-18 [facility] Thin prep Papanicolaou smear with manual screeningOrdered By: Demetrius Fenton on 05-20-2022 Thin prep Papanicolaou smear with manual screening 7 5-15 [facility] Basophil percentageOrdered B y: Demetrius Fenton on 05-13-2022 Chloride [Moles/Vol] 104 mmol/L 98-107 [facility] Glucose [Mass/Vol] 116 mg/dL 74-106 [facility] Comment on above: Fasting Glucose resu lt from 100 to 125 mg/dL suggests IMPAIRED HOMEOSTASIS per A.D.A. criteria. Potassium [Moles/Vol] 4.9 mmol/L 3.5-5.1 [facility] Sodium [Moles/Vol] 139 mmol/L 136-145 [facility] WBC (Bld) [#/Vol] 8.0 10*3/uL 4.4-11.0 [facility] Blood erythrocytes count (nu mber/volume)Ordered By: Demetrius Fenton on 05-13-2022 RBC (Bld) [#/Vol] 4.12 10*6/uL 4.6-6.2 [facility] Blood hemoglobin measurement (mass/volume)Ordered By: Demetrius Fenton on 05-13-2022 Hemoglobin (Bld) [Mass/Vol] 12.9 g/dL 13.0-16.5 [facility] Blood platelet mean volumeOr dered By: Demetrius Fenton on 05-13-2022 Platelet mean volume (Bld) [Entitic vol] 11.8 fL 6.2-12.0 [facility] Determination of erythrocyte mean corpuscular volume (MCV)Ordered By: Demetrius Fenton on 05-13-2022 MCV (RBC) [Entitic vol] 96.1 fL 80-94 [facility] Hematocrit Auto (Bld) [Volum e fraction]Ordered By: Demetrius Fenton on 05-13-2022 Hematocrit (Bld) [Volume fraction] 39.6 % 40-54 [facility] Laboratory - Chemistry and C hemistry - challengeOrdered By: Demetrius Fenton on 05-13-2022 CO2 [Moles/Vol] 27.0 mmol/L 21.0-32.0 [facility] Urea nitrogen/Creatinine [Mass ratio] 18.6 mg/mg 10-20 [facility] Laboratory - Hematology and Cell countsOrdered By: Demetrius Fenton on 05-13-2022 Erythrocyte distribution width (RBC) [Entitic vol] 45.3 fL 35.1-43.9 [facility] Erythrocyte distribution width (RBC) [Ratio] 13.2 % 11.6-14.6 [facility] MCH (RBC) [Entitic mass] 31.3 pg 27.0-32.0 [facility] MCHC Auto (RBC) [Mass/Vol]Or dered By: Demetrius Fenton on 05-13-2022 MCHC (RBC) [Mass/Vol] 32.6 g/dL 32-36 [facility] No Panel InformationOrdered By: Demetrius Fenton on 05-13-2022 Estimated GFR (MDRD) Amer 67 mL/min >60 [facility] Comment on above: GFR Calc Estimated GFR (MDRD) Non-Af Amer 55 mL/min >60 [facility] Comment on above: Non- GFR Calc Platelets bldOrdered By: Miriam Fenton on 05-13-2022 Platelets (Bld) [#/Vol] 172 10*3/uL 150-450 [facility] Serum or plasma calcium roseanne urement (mass/volume)Ordered By: Demetrius Fenton on 05-13-2022 Calcium [Mass/Vol] 9.0 mg/dL 8.5-10.1 [facility] Serum or plasma creatinine m easurement (mass/volume)Ordered By: Demetrius Fenton on 05-13-2022 Creatinine [Mass/Vol] 1.40 mg/dL 0.70-1.30 [facility] Comment on above: The validity of the calculated GFR & GFRAA in patients over 70 years has not been determined. Clinical correlation is essential. Serum or plasma urea nitroge n measurement (mass/volume)Ordered By: Demetrius Fenton on 05-13-2022 Urea nitrogen [Mass/Vol] 26 mg/dL 7-18 [facility] Thin prep Papanicolaou smear with manual screeningOrdered By: Demetrius Fenton on 05-13-2022 Thin prep Papanicolaou smear with manual screening 8 5-15 [facility] Basophil percentageOrdered B y: Demetrius Fenton on 04-29-2022 Chloride [Moles/Vol] 105 mmol/L 98-107 [facility] Glucose [Mass/Vol] 125 mg/dL 74-106 [facility] Comment on above: Fasting Glucose resu lt from 100 to 125 mg/dL suggests IMPAIRED HOMEOSTASIS per A.D.A. criteria. Potassium [Moles/Vol] 4.6 mmol/L 3.5-5.1 [facility] Sodium [Moles/Vol] 137 mmol/L 136-145 [facility] WBC (Bld) [#/Vol] 8.7 10*3/uL 4.4-11.0 [facility] Blood erythrocytes count (nu mber/volume)Ordered By: Demetrius Fenton on 04-29-2022 RBC (Bld) [#/Vol] 4.05 10*6/uL 4.6-6.2 [facility] Blood hemoglobin measurement (mass/volume)Ordered By: Demetrius Fenton on 04-29-2022 Hemoglobin (Bld) [Mass/Vol] 12.6 g/dL 13.0-16.5 [facility] Blood platelet mean volumeOr dered By: Demetrius Fenton on 04-29-2022 Platelet mean volume (Bld) [Entitic vol] 11.1 fL 6.2-12.0 [facility] Determination of erythrocyte mean corpuscular volume (MCV)Ordered By: Demetrius Fenton on 04-29-2022 MCV (RBC) [Entitic vol] 94.6 fL 80-94 [facility] Hematocrit Auto (Bld) [Volum e fraction]Ordered By: Demetrius Fenton on 04-29-2022 Hematocrit (Bld) [Volume fraction] 38.3 % 40-54 [facility] Laboratory - Chemistry and C hemistry - challengeOrdered By: Demetrius Fenton on 04-29-2022 CO2 [Moles/Vol] 26.0 mmol/L 21.0-32.0 [facility] Urea nitrogen/Creatinine [Mass ratio] 18.6 mg/mg 10- [facility] Laboratory - Hematology and Cell countsOrdered By: Demetrius Fenton on 04-29-2022 Erythrocyte distribution width (RBC) [Entitic vol] 44.2 fL 35.1-43.9 [facility] Erythrocyte distribution width (RBC) [Ratio] 13.1 % 11.6-14.6 [facility] MCH (RBC) [Entitic mass] 31.1 pg 27.0-32.0 [facility] MCHC Auto (RBC) [Mass/Vol]Or dered By: Demetrius Fenton on 04-29-2022 MCHC (RBC) [Mass/Vol] 32.9 g/dL 32-36 [facility] No Panel InformationOrdered By: Demetrius Fenton on 04-29-2022 Estimated GFR (MDRD) Amer 57 mL/min >60 [facility] Comment on above: GFR Calc Estimated GFR (MDRD) Non-Af Amer 47 mL/min >60 [facility] Comment on above: Non- GFR Calc Platelets bldOrdered By: Miriam Fenton on 04-29-2022 Platelets (Bld) [#/Vol] 165 10*3/uL 150-450 [facility] Serum or plasma calcium roseanne urement (mass/volume)Ordered By: Demetrius Fenton on 04-29-2022 Calcium [Mass/Vol] 8.7 mg/dL 8.5-10.1 [facility] Serum or plasma creatinine m easurement (mass/volume)Ordered By: Demetrius Fenton on 04-29-2022 Creatinine [Mass/Vol] 1.61 mg/dL 0.70-1.30 [facility] Comment on above: The validity of the calculated GFR & GFRAA in patients over 70 years has not been determined. Clinical correlation is essential. Serum or plasma urea nitroge n measurement (mass/volume)Ordered By: Demetrius Fenton on 04-29-2022 Urea nitrogen [Mass/Vol] 30 mg/dL 7-18 [facility] Thin prep Papanicolaou smear with manual screeningOrdered By: Demetrius Fenton on 04-29-2022 Thin prep Papanicolaou smear with manual screening 6 5-15 [facility] Basophil percentageOrdered B y: Demetrius Fenton on 04-22-2022 Chloride [Moles/Vol] 103 mmol/L 98-107 [facility] Glucose [Mass/Vol] 154 mg/dL 74-106 [facility] Comment on above: Fasting Glucose resu lt greater than or equal to 126 mg/dL suggests DIABETES MELLITUS per A.D.A. criteria. Potassium [Moles/Vol] 4.9 mmol/L 3.5-5.1 [facility] Sodium [Moles/Vol] 136 mmol/L 136-145 [facility] Laboratory - Chemistry and C hemistry - challengeOrdered By: Demetrius Fenton on 04-22-2022 CO2 [Moles/Vol] 25.0 mmol/L 21.0-32.0 [facility] Urea nitrogen/Creatinine [Mass ratio] 24.3 mg/mg 10-20 [facility] No Panel InformationOrdered By: Demetrius Fenton on 04-22-2022 Estimated GFR (MDRD) Amer 69 mL/min >60 [facility] Comment on above: GFR Calc Estimated GFR (MDRD) Non-Af Amer 57 mL/min >60 [facility] Comment on above: Non- GFR Calc Serum or plasma calcium roseanne urement (mass/volume)Ordered By: Demetrius Fenton on 04-22-2022 Calcium [Mass/Vol] 9.0 mg/dL 8.5-10.1 [facility] Serum or plasma creatinine m easurement (mass/volume)Ordered By: Demetrius Fenton on 04-22-2022 Creatinine [Mass/Vol] 1.36 mg/dL 0.70-1.30 [facility] Comment on above: The validity of the calculated GFR & GFRAA in patients over 70 years has not been determined. Clinical correlation is essential. Serum or plasma urea nitroge n measurement (mass/volume)Ordered By: Demetrius Fenton on 04-22-2022 Urea nitrogen [Mass/Vol] 33 mg/dL 7-18 [facility] Thin prep Papanicolaou smear with manual screeningOrdered By: Demetrius Fenton on 04-22-2022 Thin prep Papanicolaou smear with manual screening 8 5-15 [facility] Basophil percentageOrdered B y: Gunnar Cummings on 02-17-2022 Chloride [Moles/Vol] 102 mmol/L 98-107 [facility] Glucose [Mass/Vol] 117 mg/dL 74-106 [facility] Comment on above: Fasting Glucose resu lt from 100 to 125 mg/dL suggests IMPAIRED HOMEOSTASIS per A.D.A. criteria. Potassium [Moles/Vol] 4.8 mmol/L 3.5-5.1 [facility] Sodium [Moles/Vol] 137 mmol/L 136-145 [facility] Laboratory - Chemistry and C hemistry - challengeOrdered By: Gunnar Cummings on 02-17-2022 CO2 [Moles/Vol] 28.0 mmol/L 21.0-32.0 [facility] Urea nitrogen/Creatinine [Mass ratio] 20.6 mg/mg 10-20 [facility] No Panel InformationOrdered By: Gunnar Cummings on 02-17-2022 Estimated GFR (MDRD) Amer 75 mL/min >60 [facility] Comment on above: GFR Calc Estimated GFR (MDRD) Non-Af Amer 62 mL/min >60 [facility] Comment on above: Non- GFR Calc Serum or plasma calcium roseanne urement (mass/volume)Ordered By: Gunnar Cummings on 02-17-2022 Calcium [Mass/Vol] 8.9 mg/dL 8.5-10.1 [facility] Serum or plasma creatinine m easurement (mass/volume)Ordered By: Gunnar Cummings on 02-17-2022 Creatinine [Mass/Vol] 1.26 mg/dL 0.70-1.30 [facility] Comment on above: The validity of the calculated GFR & GFRAA in patients over 70 years has not been determined. Clinical correlation is essential. Serum or plasma urea nitroge n measurement (mass/volume)Ordered By: Gunnar Cummings on 02-17-2022 Urea nitrogen [Mass/Vol] 26 mg/dL 7-18 [facility] Thin prep Papanicolaou smear with manual screeningOrdered By: Gunnar Cummings on 02-17-2022 Thin prep Papanicolaou smear with manual screening 7 5-15 [facility] Absolute lymphocyte countOrd ered By: Gunnar Cummings on 02-10-2022 Lymphocytes Auto (Unsp spec) [#/Vol] 3.53 10*3/uL 0.83-4.51 [facility] Basophil percentageOrdered B y: Gunnar Cummings on 02-10-2022 Basophils/100 WBC (Bld) 0.9 % 0-1 [facility] Bilirubin [Mass/Vol] 0.80 mg/dL 0.20-1.00 [facility] Comment on above: For patients on eltr ombopag therapy, use of Dimension Moose TBIL is not recommended. Eosinophils/100 WBC (Bld) 3.8 % 0-5 [facility] Neutrophils (Bld) [#/Vol] 3.4 10*3/uL 2.0-7.7 [facility] Neutrophils/100 WBC (Bld) 42.8 % 47-70 [facility] Protein [Mass/Vol] 6.6 g/dL 6.4-8.2 [facility] WBC (Bld) [#/Vol] 7.9 10*3/uL 4.4-11.0 [facility] Blood erythrocytes count (nu mber/volume)Ordered By: Gunnar Cummings on 02-10-2022 RBC (Bld) [#/Vol] 4.36 10*6/uL 4.6-6.2 [facility] Blood hemoglobin measurement (mass/volume)Ordered By: Gunnar Cummings on 02-10-2022 Hemoglobin (Bld) [Mass/Vol] 13.8 g/dL 13.0-16.5 [facility] Blood lymphocytes/100 leukoc ytesOrdered By: Gunnar Cummings on 02-10-2022 Lymphocytes/100 WBC (Bld) 44.5 % 19-41 [facility] Blood monocytes/100 leukocyt esOrdered By: Gunnar Cummings on 02-10-2022 Monocytes/100 WBC (Bld) 7.4 % 0-10 [facility] Blood platelet mean volumeOr dered By: Gunnar Cummings on 02-10-2022 Platelet mean volume (Bld) [Entitic vol] 11.2 fL 6.2-12.0 [facility] Determination of erythrocyte mean corpuscular volume (MCV)Ordered By: Gunnar Cummings on 02-10-2022 MCV (RBC) [Entitic vol] 92.4 fL 80-94 [facility] Direct bilirubinOrdered By: Gunnar Cummings on 02-10-2022 Bilirubin.direct [Mass/Vol] 0.12 mg/dL 0.00-0.30 [facility] Hematocrit Auto (Bld) [Volum e fraction]Ordered By: Gunnar Cummings on 02-10-2022 Hematocrit (Bld) [Volume fraction] 40.3 % 40-54 [facility] Laboratory - Chemistry and C hemistry - challengeOrdered By: Gunnar Cummings on 02-10-2022 ALP [Catalytic activity/Vol] 69 U/L 45-117 [facility] ALT [Catalytic activity/Vol] 26 U/L 16-61 [facility] Globulin (S) [Mass/Vol] 3.3 g/dL 2.2-4.2 [facility] Laboratory - Hematology and Cell countsOrdered By: Gunnar Cummings on 02-10-2022 Erythrocyte distribution width (RBC) [Entitic vol] 41.3 fL 35.1-43.9 [facility] Erythrocyte distribution width (RBC) [Ratio] 12.7 % 11.6-14.6 [facility] Immature granulocytes/100 WBC (Bld) 0.600 % 0.0-0.9 [facility] Comment on above: IG% - Immature Granu locytes (promyelocytes, myelocytes and metamyelocytes) > 1% indicates that a LEFT SHIFT is Present. MCH (RBC) [Entitic mass] 31.7 pg 27.0-32.0 [facility] Nucleated RBC/100 WBC (Bld) [Ratio] 0 % 0-5 [facility] MCHC Auto (RBC) [Mass/Vol]Or dered By: Gunnar Cummings on 02-10-2022 MCHC (RBC) [Mass/Vol] 34.2 g/dL 32-36 [facility] Platelets bldOrdered By: Ar Cummings on 02-10-2022 Platelets (Bld) [#/Vol] 165 10*3/uL 150-450 [facility] Serum or plasma albumin roseanne urement (mass/volume)Ordered By: Gunnar Cummings on 02-10-2022 Albumin [Mass/Vol] 3.3 g/dL 3.2-5.0 [facility] Thin prep Papanicolaou smear with manual screeningOrdered By: Gunnar Cummings on 02-10-2022 Thin prep Papanicolaou smear with manual screening 14 U/L 15-37 [facility] Basophil percentageon 2021 Chloride [Moles/Vol] 100 mmol/L 98-107 [facility] Work Phone: Glucose [Mass/Vol] 120 mg/dL 74-106 [facility] Work Phone: Comment on above: Fasting Glucose resu lt from 100 to 125 mg/dL suggests IMPAIRED HOMEOSTASIS per A.D.A. criteria. Potassium [Moles/Vol] 4.7 mmol/L 3.5-5.1 [facility] Work Phone: Sodium [Moles/Vol] 136 mmol/L 136-145 [facility] Work Phone: Laboratory - Chemistry and C hemistry - challengeon 01-17-2022 CO2 [Moles/Vol] 28.0 mmol/L 21.0-32.0 [facility] Work Phone: Urea nitrogen/Creatinine [Mass ratio] 19.3 mg/mg 10-20 [facility] Work Phone: No Panel Informationon 01-17 Estimated GFR (MDRD) Amer 80 mL/min >60 [facility] Work Phone: Comment on above: GFR Calc Estimated GFR (MDRD) Non-Af Amer 67 mL/min >60 [facility] Work Phone: Comment on above: Non- GFR Calc Serum or plasma calcium roseanne urement (mass/volume)on 01-17-2022 Calcium [Mass/Vol] 8.9 mg/dL 8.5-10.1 [facility] Work Phone: Serum or plasma creatinine m easurement (mass/volume)on 01-17-2022 Creatinine [Mass/Vol] 1.19 mg/dL 0.70-1.30 [facility] Work Phone: Comment on above: The validity of the calculated GFR & GFRAA in patients over 70 years has not been determined. Clinical correlation is essential. Serum or plasma urea nitroge n measurement (mass/volume)on 01-17-2022 Urea nitrogen [Mass/Vol] 23 mg/dL 7-18 [facility] Work Phone: Thin prep Papanicolaou smear with manual screeningon 01-17-2022 Thin prep Papanicolaou smear with manual screening 8 5-15 [facility] Work Phone: Basophil percentageon 2021 Chloride [Moles/Vol] 107 mmol/L 98-107 [facility] Work Phone: Glucose [Mass/Vol] 116 mg/dL 74-106 [facility] Work Phone: Comment on above: Fasting Glucose resu lt from 100 to 125 mg/dL suggests IMPAIRED HOMEOSTASIS per A.D.A. criteria. Potassium [Moles/Vol] 4.8 mmol/L 3.5-5.1 [facility] Work Phone: Sodium [Moles/Vol] 137 mmol/L 136-145 [facility] Work Phone: Laboratory - Chemistry and C hemistry - challengeon 11-17-2021 CO2 [Moles/Vol] 25.0 mmol/L 21.0-32.0 [facility] Work Phone: Urea nitrogen/Creatinine [Mass ratio] 22.6 mg/mg 10-20 [facility] Work Phone: No Panel Informationon 11-17 Estimated GFR (MDRD) Amer 77 mL/min >60 [facility] Work Phone: Comment on above: GFR Calc Estimated GFR (MDRD) Non-Af Amer 63 mL/min >60 [facility] Work Phone: Comment on above: Non- GFR Calc Serum or plasma calcium roseanne urement (mass/volume)on 11-17-2021 Calcium [Mass/Vol] 8.6 mg/dL 8.5-10.1 [facility] Work Phone: Serum or plasma creatinine m easurement (mass/volume)on 11-17-2021 Creatinine [Mass/Vol] 1.24 mg/dL 0.70-1.30 [facility] Work Phone: Comment on above: The validity of the calculated GFR & GFRAA in patients over 70 years has not been determined. Clinical correlation is essential. Serum or plasma urea nitroge n measurement (mass/volume)on 11-17-2021 Urea nitrogen [Mass/Vol] 28 mg/dL 7-18 [facility] Work Phone: Thin prep Papanicolaou smear with manual screeningon 11-17-2021 Thin prep Papanicolaou smear with manual screening 5 -15 [facility] Work Phone: [facility] 10-03-2021 [facility] HNO ID: [id number] Author: RT Traci(R) Service: Radiology Author Type: Technologist Type: Allied Health Filed: 10/02/2021 11:39 PM Note Text: Radiology Service Progress Note PATIENT NAME: Moises Madrid DATE OF SERVICE: October 02, 2021 TIME: 11:38 PM PATIENT IDENTITY VERIFICATION COMPLETED USING TWO (2) IDENTIFIERS: Name and Date of confirmed by patient verbally. FALL SCREENING: Has the patient had 2 falls in the last year or 1 fall with injury or currently using an Ambulatory Assistive Device (Walker, Cane, Wheelchair, Crutches, etc.)? Emergency Room Patient: Screened in ED PATIENT GENDER DATA: Male PATIENT RELEVANT IMPLANT DATA REVIEWED: Not Applicable RADIOLOGY DEPARTMENT: General X-ray: Exam(s) Completed: Pelvis X-Ray: Pelvis General AP Lower Extremity X-Ray(s): Knee, AP / LAT Left, Tibia Fibula, Left and Ankle, Left PERIPHERAL IV DATA: Not applicable SIGNED BY: RT Traci(R) October 02, 2021 11:38 PM [facility] HNO ID: [id number] Author: ALICIA Bucio Service: Radiology Author Type: Technologist Type: Allied Health Filed: 10/02/2021 11:04 PM Note Text: Radiology Service Progress Note PATIENT NAME: Moises Madrid DATE OF SERVICE: October 02, 2021 TIME: 11:04 PM PATIENT IDENTITY VERIFICATION COMPLETED USING TWO (2) IDENTIFIERS: Name and Date of confirmed by patient verbally and Name and Date of confirmed by identification band. FALL SCREENING: Has the patient had 2 falls in the last year or 1 fall with injury or currently using an Ambulatory Assistive Device (Walker, Cane, Wheelchair, Crutches, etc.)? Emergency Room Patient: Screened in ED PATIENT GENDER DATA: Male PATIENT RELEVANT IMPLANT DATA REVIEWED: Not Applicable RADIOLOGY DEPARTMENT: CT; Exam(s) Completed: Brain and Spine PERIPHERAL IV DATA: Not applicable SIGNED BY: ALICIA Bucio October 02, 2021 11:[address] [facility] [address] BRAIN WO IVCONon 10-04-19 CT BRAIN WO IVCON * * *Final Report* * * DATE OF EXAM: Oct 02 2021 11:18PM [facility] 0504 - CT BRAIN WO IVCON / PROCEDURE REASON: Head trauma, minor (Age >= 65y) * * * * Physician Interpretation * * * * EXAMINATION: CT BRAIN WO IVCON, CT CERVICAL SPINE WO IVCON CLINICAL HISTORY: Head trauma, minor (Age >= 65y) (accession [id number]), Spine fracture, cervical, traumatic (accession [id number]) TECHNIQUE: CT head: Serial axial images without IV contrast were obtained from the vertex to the foramen magnum. MQ: CTBWO_3 CT cervical spine: CT of the cervical spine without IV contrast. Spiral, high resolution axial images were obtained from the skull base to the cervicothoracic junction with sagittal and coronal planar reconstructions. MQ: CTCSPWO_5 CT Dose-Length Product (DLP): 1083 mGy*cm CT Dose Reduction Employed: No dose reduction techniques were required COMPARISON: CT dated 05/25/2021. RESULT: CT head: Post-operative change: Suggestion of old left frontal amandeep hole tract. Acute change: No evidence of acute parenchymal process. Hemorrhage: No evidence of acute intracranial hemorrhage. Mass Lesion / Mass Effect: There is no evidence of an intracranial mass or extraaxial fluid collection. No significant mass effect. 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 Patchy areas of low attenuation subcortical and periventricular white matter are nonspecific but unchanged. These most likely reflects sequela of chronic small vessel ischemic changes. Parenchyma: Mild diffuse brain volume loss is unchanged. The brain parenchyma is otherwise within normal limits for age. Ventricles: The ventricles are within normal limits of size and configuration for age. Paranasal sinuses and skull base: Opacification of the right frontal, ethmoid, maxillary sinus with associated osseous eburnation is unchanged and in keeping with chronic sinusitis. High attenuation material in the right maxillary sinus which may reflect chronic fungal elements or inspissated secretions. No calvarial fracture. CT cervical spine: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 Chronic right maxillary sinus disease. 2. No acute compression deformity or apparent fracture in the cervical spine. Degenerative spondylosis. Computed Tomography Report Report Dictated on Workstation: YIFAN --- Final --- Dictating Physician: MD LOPEZ WENDELL Signed Date and Time: 06/26/2020 6:21 pm Signed by: MD LOPEZ WENDELL Transcribed Date and Time: 06/26/2020 6:22 [facility] Work Phone: [employer] 06-26-2020 Demetria Matthew 06/26/2020 6:41 PM [facility] [employer] Date/Time: 06/26/2020 5:59 PM Performed by: Loki Hernandez MD Authorized by: Loki Hernandez MD Consent: Consent obtained: Verbal Consent given by: Patient Risks discussed: Infection and poor cosmetic result Alternatives discussed: No treatment Anesthesia (see MAR for exact dosages): Anesthesia method: Local infiltration Local anesthetic: Lidocaine 1% w/o epi Laceration details: Location: Scalp Scalp location: Frontal Length (cm): 5 Depth (mm): 8 Repair type: Repair type: Simple Pre-procedure details: Preparation: Patient was prepped and draped in usual sterile fashion Exploration: Hemostasis achieved with: Direct pressure Wound exploration: entire depth of wound probed and visualized Contaminated: no Treatment: Area cleansed with: Shur-Clens and saline Amount of cleaning: Standard Irrigation solution: Sterile saline Irrigation method: Syringe Visualized foreign bodies/material removed: no Skin repair: Repair method: Rashida Number of rashida: 7 Approximation: Approximation: Close Post-procedure details: Dressing: Bulky dressing and antibiotic ointment [facility] Work Phone: Basic Metabolic Panelon 11- Anion gap [Moles/Vol] 6 mmol/L [facility], [place] Calcium [Mass/Vol] 9.1 mg/dL 8.4 - 10. 4 mg/dL [facility], [place] Chloride [Moles/Vol] 105 mmol/L 98 - 10 7 mmol/L [place], [place] CO2 [Moles/Vol] 28 mmol/L 22 - 30 mmol/L [place] Creatinine [Mass/Vol] 0.97 mg/dL 0.52 - 1.25 mg/dL [place] EGFR IF NonAfrican Citizen Of [place] 86.2 mL/min >60 [place] Comment on above: KDIGO guidelines pro vide the following GFR categories: Stage GFR(ml/min/1.73 m2) Terms G1 >=90 Normal or high G2 60-89 Mildly decreased* G3a 45-59 Mildly to moderately decreased G3b 30-44 Moderately to severely decreased G4 15-29 Severely decreased G5 <15 Kidney failure *Relative to young adult level. In the absence of evidence of kidney damage, neither GFR category G1 nor G2 fulfill the criteria for CKD. The CKD-EPI equation is validated in individuals 18 years of age and older. Currently the best equation for estimating glomerular filtration rate (GFR) from serum creatinine in children is the Bedside Torres equation. It is less accurate in patients with extremes of muscle mass, restriction of dietary protein, ingestion of creatine, extra-renal metabolism of creatinine, or treatment with medications that affect renal tubular creatinine secretion. GFR/1.73 sq M predicted among blacks MDRD (S/P/Bld) [Vol rate/Area] mL/min/{1.73_m2} >60 mL/min [place] Glucose [Mass/Vol] 113 mg/dL High 70 - 100 mg/dL [place] Interpretation and review of laboratory results Abnormal [place] Potassium [Moles/Vol] 3.5 mmol/L 3.5 - 5.1 mmol/L [place] Sodium [Moles/Vol] 139 mmol/L 135 - 145 mmol/L [place] Urea nitrogen [Mass/Vol] 14 mg/dL 7 - 20 mg/dL [place] Test Performed by [facility], [facility] [address] , [address] Head WO Contraston 2019 Patient Name: MOISES VERONICA ---CT--- Exam Date/Time 02/19/2020 21:24:[address] Head or Brain w/o Contrast Ordering Physician MELLY LYLES Accession Number [id number] CPT4 Codes 10048 () Reason For Exam hypertensive crisis, frontal headache Report CT head without contrast History: Headaches Protocol: 3 mm axial images without IV contrast There is no evidence of intracranial hemorrhage, extra-axial fluid collection, hydrocephalus, or acute infarct. No evidence of a mass of mass affect. The visualized portions of the paranasal sinuses and the mastoid air cells are clear. IMPRESSION: No acute findings. Report Dictated on --- Final --- Dictating Physician: MD HOGAN MALAY Signed Date and Time: 02/19/2020 9:20 pm Signed by: MD HOGAN MALAY Transcribed Date and Time: 02/19/2020 9:24 [place], [place] Alexys, [facility] Incoming Radiology Results From Pending Sale To [facility] - 02/19/2020 9:25 PM EST Patient Name: MOISES MADRID ---CT--- Exam Date/Time 02/19/2020 21:24:[address] Head or Brain w/o Contrast Ordering Physician MELLY LYLES Accession Number [id number] CPT4 Codes 64882 () Reason For Exam hypertensive crisis, frontal headache Report CT head without contrast History: Headaches Protocol: 3 mm axial images without IV contrast There is no evidence of intracranial hemorrhage, extra-axial fluid collection, hydrocephalus, or acute infarct. No evidence of a mass of mass affect. The visualized portions of the paranasal sinuses and the mastoid air cells are clear. IMPRESSION: No acute findings. Report Dictated on --- Final --- Dictating Physician: MD HOGAN MALAY Signed Date and Time: 02/19/2020 9:20 pm Signed by: MD HOGAN MALAY Transcribed Date and Time: 02/19/2020 9:24 [place] Hemogram (CBC)on 02-19-2020 Erythrocyte distribution width (RBC) [Ratio] 13.8 % 11.5 - 14.5 % [place] Hematocrit (Bld) [Volume fraction] 39.9 % Low 40 - 52 % [place] Hemoglobin (Bld) [Mass/Vol] 13.8 g/dL 13 - 18 g/dL [place] Interpretation and review of laboratory results Abnormal [place] MCH (RBC) [Entitic mass] 30.2 pg 26 - 34 pg [place] MCHC (RBC) [Mass/Vol] 34.5 % 32 - 36 % [place], [place] MCV (RBC) [Entitic vol] 87.5 fL 80 - 98 fL [place], [place] Platelet mean volume (Bld) [Entitic vol] 8.9 fL 7.4 - 10.4 fL [place] Platelets (Bld) [#/Vol] 138 10*3/uL Low 140 - 440 10*3/uL [place] RBC (Bld) [#/Vol] 4.56 10*6/uL 4.4 - 5.9 10*6/uL [place] WBC (Bld) [#/Vol] 7.5 10*3/uL 3.6 - 10.7 10*3/uL [place] Test Performed by [facility], [address] Troponin x1on 02-19-2020 Troponin I.cardiac [Mass/Vol] ng/mL 0 - 0.034 ng/mL [place] Comment on above: . Test Performed by [facility], [address] , [address] Comp Metabolic Panelon 04-05 ALP [Catalytic activity/Vol] 59 U/L Normal 38-126 [facility] Comment on above: Performed By: #### C MP3, HEMOG, LACT3 #### [facility] [address] [place] [address] ALT [Catalytic activity/Vol] 52 U/L Normal 13-69 [facility] Comment on above: Performed By: #### C MP3, HEMOG, LACT3 #### [facility] [address] [place] [address] AST [Catalytic activity/Vol] 41 U/L Normal 15-46 [facility] Comment on above: Performed By: #### C MP3, HEMOG, LACT3 #### [facility] [address] [facility] [place] [address] Calcium [Mass/Vol] 8.5 mg/dL Normal 8.4-10.4 [facility] Comment on above: Performed By: #### C MP3, HEMOG, LACT3 #### [place] [id number] [facility] [place] [address] Glucose [Mass/Vol] 127 mg/dL High 70-100 [facility] Comment on above: Performed By: #### C MP3, HEMOG, LACT3 #### [address] [place] [address] Urea nitrogen [Mass/Vol] 13 mg/dL Normal 7-20 [facility] Comment on above: Performed By: #### C MP3, HEMOG, LACT3 #### [address] [place] [address] Anion gap [Moles/Vol] 8 Normal [facility] Comment on above: Performed By: #### C MP3, HEMOG, LACT3 #### [address] [place] [address] Bilirubin [Mass/Vol] 0.5 mg/dL Normal 0.2-1.3 [facility] Comment on above: Performed By: #### C MP3, HEMOG, LACT3 #### [address] [place] [address] CO2 [Moles/Vol] 29 mmol/L Normal 22-30 [facility] Comment on above: Performed By: #### C MP3, HEMOG, LACT3 #### [address] [place] [address] Creatinine [Mass/Vol] 0.83 mg/dL Normal 0.52-1.25 [facility] Comment on above: Performed By: #### C MP3, HEMOG, LACT3 #### [place] [id number] [place] [address] GFR/1.73 sq M predicted among blacks MDRD (S/P/Bld) [Vol rate/Area] mL/min/{1.73_m2} Normal >60 [facility] Comment on above: Performed By: #### C MP3, HEMOG, LACT3 #### [address] [address] GFR/1.73 sq M predicted among non-blacks MDRD (S/P/Bld) [Vol rate/Area] mL/min/{1.73_m2} Normal >60 [facility] Comment on above: Result Comment: Sour ce- MDRD equation with creatinine calibration to IDMS(NKDEP) eGFR not recommended for drug dose adjustment Performed By: #### C MP3, HEMOG, LACT3 #### [address] [address] Protein [Mass/Vol] 6.0 g/dL Low 6.3-8.2 [facility] Comment on above: Performed By: #### C MP3, HEMOG, LACT3 #### [address] [address] Potassium [Moles/Vol] 3.2 mmol/L Low 3.5-5.1 [facility] Comment on above: Performed By: #### C MP3, HEMOG, LACT3 #### [address] [address] Sodium [Moles/Vol] 138 mmol/L Normal 135-145 [facility] Comment on above: Performed By: #### C MP3, HEMOG, LACT3 #### [address] [address] Albumin [Mass/Vol] 3.6 g/dL Normal 3.5-5.0 [facility] Comment on above: Performed By: #### C MP3, HEMOG, LACT3 #### [address] [address] Chloride [Moles/Vol] 102 mmol/L Normal 98-107 [facility] Comment on above: Performed By: #### C MP3, HEMOG, LACT3 #### [address] [address] Comprehensive Metabolic Pane lOrdered By: Jesús Ellis on 04-05-2019 Albumin [Mass/Vol] 3.6 g/dL 3.5 - 5 g/dL [facility] Work Phone: ALP [Catalytic activity/Vol] 59 U/L 38 - 126 U/L [facility] Work Phone: [phone] ALT [Catalytic activity/Vol] 52 U/L 13 - 69 U/L [facility] Work Phone: [phone] Anion gap [Moles/Vol] 8 mmol/L [facility] Work Phone: [phone] [Catalytic activity/Vol] 41 U/L 15 - 46 U/L [facility] Work Phone: [phone] Bilirubin [Mass/Vol] 0.5 mg/dL 0.2 - 1 .3 mg/dL [facility] Work Phone: [phone] Calcium [Mass/Vol] 8.5 mg/dL 8.4 - 10. 4 mg/dL [facility] Work Phone: [phone] Chloride [Moles/Vol] 102 mmol/L 98 - 10 7 mmol/L [facility] Work Phone: [phone] CO2 [Moles/Vol] 29 mmol/L 22 - 30 mmol/L [facility] Work Phone: [phone] Creatinine [Mass/Vol] 0.83 mg/dL 0.52 - 1.25 mg/dL [facility] Work Phone: [phone] IF NonAfrican Citizen Of [place] >60.0 >60 mL/min [facility] Work Phone: [phone] Comment on above: Source- MDRD equatio n with creatinine calibration to IDMS(NKDEP) eGFR not recommended for drug dose adjustment GFR/1.73 sq M.predicted among blacks MDRD (S/P/Bld) [Vol rate/Area] mL/min/{1.73_m2} >60 mL/min [facility] Work Phone: [phone] Glucose [Mass/Vol] 127 mg/dL High 70 - 100 mg/dL [facility] Work Phone: [phone] Interpretation and review of laboratory results Abnormal [facility] Work Phone: [phone] Potassium [Moles/Vol] 3.2 mmol/L Low 3.5 - 5.1 mmol/L [facility] Work Phone: [phone] Protein [Mass/Vol] 6.0 g/dL Low 6.3 - 8.2 g/dL [facility] Work Phone: Sodium [Moles/Vol] 138 mmol/L 135 - 145 mmol/L [facility] Work Phone: Urea nitrogen [Mass/Vol] 13 mg/dL 7 - 20 mg/dL [facility] Work Phone: Test Performed by [facility], [address] [place] [address] [facility] Work Phone: Hemogramon 04-05-2019 Erythrocyte distribution width (RBC) [Ratio] 13.3 % Normal 11.5-14.5 [facility] Comment on above: Performed By: #### C MP3, HEMOG, LACT3 #### [address] [address] Hematocrit (Bld) [Volume fraction] 43.7 % Normal 40.0-52.0 [facility] Comment on above: Performed By: #### C MP3, HEMOG, LACT3 #### [address] [address] Hemoglobin (Bld) [Mass/Vol] 14.7 g/dL Normal 13.0-18.0 [facility] Comment on above: Performed By: #### C MP3, HEMOG, LACT3 #### [address] [address] MCH (RBC) [Entitic mass] 30.1 pg Normal 26.0-34.0 [facility] Comment on above: Performed By: #### C MP3, HEMOG, LACT3 #### [address] [address] MCHC (RBC) [Mass/Vol] 33.7 % Normal 32.0-36.0 [facility] Comment on above: Performed By: #### C MP3, HEMOG, LACT3 #### [address] [address] MCV (RBC) [Entitic vol] 89.4 fL Normal 80.0-98.0 [facility] Comment on above: Performed By: #### C MP3, HEMOG, LACT3 #### [address] [address] Platelet mean volume (Bld) [Entitic vol] 8.6 fL Normal 7.4-10.4 [facility] Comment on above: Performed By: #### C MP3, HEMOG, LACT3 #### [address] [address] Platelets (Bld) [#/Vol] 166 10*3/uL Normal 140-440 [facility] Comment on above: Performed By: #### C MP3, HEMOG, LACT3 #### [address] [address] RBC (Bld) [#/Vol] 4.89 10*6/uL Normal 4.40-5.90 [facility] Comment on above: Performed By: #### C MP3, HEMOG, LACT3 #### [address] [address] WBC (Bld) [#/Vol] 7.7 10*3/uL Normal 3.6-10.7 [facility] Comment on above: Performed By: #### C MP3, HEMOG, LACT3 #### [address] [address] Hemogram (CBC)Ordered By: Luz Ellis on 04-05-2019 Erythrocyte distribution width (RBC) [Ratio] 13.3 % 11.5 - 14.5 % [facility] Work Phone: [phone] Hematocrit (Bld) [Volume fraction] 43.7 % 40 - 52 % [facility] Work Phone: [phone] Hemoglobin (Bld) [Mass/Vol] 14.7 g/dL 13 - 18 g/dL [facility] Work Phone: MCH (RBC) [Entitic mass] 30.1 pg 26 - 34 pg [facility] Work Phone: [phone] MCHC 33.7 % 32 - 36 % [facility] Work Phone: [phone] MCV (RBC) [Entitic vol] 89.4 fL 80 - 98 fL [facility] Work Phone: [phone] Platelet mean volume (Bld) [Entitic vol] 8.6 fL 7.4 - 10.4 fL [facility] Work Phone: Platelets (Bld) [#/Vol] 166 10*3/uL 140 - 440 10*3/uL [facility] Work Phone: RBC (Bld) [#/Vol] 4.89 10*6/uL 4.4 - 5.9 10*6/uL [facility] Work Phone: WBC (Bld) [#/Vol] 7.7 10*3/uL 3.6 - 10.7 10*3/uL [facility] Work Phone: [phone] Test Performed by [facility], [address] [place] [address] [employer] Work Phone: Lactic Acidon 04-05-2019 Lactate [Moles/Vol] 2.6 mmol/L Critically high 0.7-2.0 [employer] Comment on above: Performed By: #### C MP3, HEMOG, LACT3 #### [employer] [facility] [place] [address] Lactic Acid, PlasmaOrdered B y: Jesús Leungbryant on 04-05-2019 Interpretation and review of laboratory results Abnormal [employer] Work Phone: Lactate [Moles/Vol] 2.6 mmol/L Critically high 0.7 - 2 mmol/L [employer] Work Phone: Test Performed by [facility], [address] [place] [address] [employer] Work Phone: Vital Signs Date Time Vital Sign Value Performing Clinician Facility 07-08-2024 11:55-0400 Body height 182.9 cm Chhaya Saldana MD Work Phone: [facility] 07-08-2024 11:55-0400 Body mass index (BMI) [Ratio] 31.99 kg/m2 Chhaya Saldana MD Work Phone: [facility] 07-08-2024 11:55-0400 Body weight 107 kg Chhaya Saldana MD Work Phone: [facility] 07-08-2024 11:55-0400 Diastolic blood pressure 75 mm[Hg] Chhaya Saldana MD Work Phone: [facility] 07-08-2024 11:55-0400 Heart rate 83 /min Chhaya Saldana MD Work Phone: [facility] 07-08-2024 11:55-0400 SaO2% (BldA) [Mass fraction] 97 % Chhaya Saldana MD Work Phone: [facility] 07-08-2024 11:55-0400 Systolic blood pressure 114 mm[Hg] Chhaya Saldana MD Work Phone: [facility] 04-09-2024 13:42-0500 Body temperature 96.91 [degF] Danielle Arreola DPM Work Phone: [facility] 04-09-2024 13:42-0500 Diastolic blood pressure 88 mm[Hg] Danielle Maxwell DPM Work Phone: [facility] 04-09-2024 13:42-0500 Heart rate 83 /min Danielle Maxwell DPM Work Phone: [facility] 04-09-2024 13:42-0500 Respiratory rate 18 /min Danielle Maxwell DPM Work Phone: [facility] 04-09-2024 13:42-0500 Systolic blood pressure 124 mm[Hg] Danielle Maxwell DPM Work Phone: [facility] 03-27-2024 14:58-0500 Body temperature 97.9 [degF] Julissaamanda Nelsone DO Work Phone: [facility] [employer] 03-27-2024 14:58-0500 Diastolic blood pressure 75 mm[Hg] Julissa Claudia DO Work Phone: [facility] [employer] 03-27-2024 14:58-0500 Heart rate 54 /min Julissa Claudia DO Work Phone: [facility] [employer] 03-27-2024 14:58-0500 Respiratory rate 18 /min Julissa Claudia DO Work Phone: [facility] [employer] 03-27-2024 14:58-0500 Systolic blood pressure 116 mm[Hg] Julissa Claudia DO Work Phone: [facility] [employer] 03-13-2024 13:57-0500 Body temperature 97.81 [degF] Julissa Claudia DO Work Phone: [facility] [employer] 03-13-2024 13:57-0500 Diastolic blood pressure 77 mm[Hg] Julissa Claudia DO Work Phone: [facility] [employer] 03-13-2024 13:57-0500 Heart rate 75 /min Julissa Claudia DO Work Phone: [facility] [employer] 03-13-2024 13:57-0500 Respiratory rate 20 /min Julissaamanda Nelsone DO Work Phone: [facility] [employer] 03-13-2024 13:57-0500 Systolic blood pressure 135 mm[Hg] Julissaamanda Nelsone DO Work Phone: [facility] [employer] 03-06-2024 10:37-0500 Body temperature 97.7 [degF] Anai Brown INSURANCE FOLLOW UP REPRESENTATIVE - ADVANCED REGISTERED NURSE Work Phone: [facility] [employer] 03-06-2024 10:37-0500 Diastolic blood pressure 73 mm[Hg] Anai Brown INSURANCE FOLLOW UP REPRESENTATIVE - ADVANCED REGISTERED NURSE Work Phone: [facility] [employer] 03-06-2024 10:37-0500 Heart rate 82 /min Anai Brown INSURANCE FOLLOW UP REPRESENTATIVE - ADVANCED REGISTERED NURSE Work Phone: [facility] [employer] 03-06-2024 10:37-0500 Respiratory rate 18 /min Anai Brown INSURANCE FOLLOW UP REPRESENTATIVE - ADVANCED REGISTERED NURSE Work Phone: [facility] [employer] 03-06-2024 10:37-0500 Systolic blood pressure 101 mm[Hg] Anai Brown INSURANCE FOLLOW UP REPRESENTATIVE - ADVANCED REGISTERED NURSE Work Phone: [facility] [employer] 02-28-2024 09:41-0500 Body temperature 97.11 [degF] Julissa Claudia DO Work Phone: [facility] [employer] 02-28-2024 09:41-0500 Diastolic blood pressure 72 mm[Hg] Julissa Claudia DO Work Phone: [facility] [employer] 02-28-2024 09:41-0500 Heart rate 60 /min Julissaamanda Nelsone DO Work Phone: [facility] [employer] 02-28-2024 09:41-0500 Respiratory rate 20 /min Julissaamanda Nelsone DO Work Phone: [facility] [employer] 02-28-2024 09:41-0500 Systolic blood pressure 133 mm[Hg] Julissa Claudia DO Work Phone: [facility] [employer] 02-21-2024 09:56-0500 Body temperature 97.2 [degF] Julissaamanda Nelsone DO Work Phone: [facility] [employer] 02-21-2024 09:56-0500 Diastolic blood pressure 72 mm[Hg] Julissaamanda Nelsone DO Work Phone: [facility] [employer] 02-21-2024 09:56-0500 Heart rate 79 /min Julissaamanda Nelsone DO Work Phone: [facility] [employer] 02-21-2024 09:56-0500 Respiratory rate 18 /min Julissaamanda Nelsone DO Work Phone: [facility] [employer] 02-21-2024 09:56-0500 Systolic blood pressure 113 mm[Hg] Julissaamanda Nelsone DO Work Phone: [facility] [employer] 02-18-2024 03:11-0500 Diastolic blood pressure 72 mm[Hg] Kaylee Bunch MD Work Phone: [facility] [employer] 02-18-2024 03:11-0500 Heart rate 88 /min Kaylee Bunch MD Work Phone: [facility] [employer] 02-18-2024 03:11-0500 Respiratory rate 16 /min Kaylee Bunch MD Work Phone: [employer] 02-18-2024 03:11-0500 SaO2% (BldA) [Mass fraction] 99 % Kaylee Bunch MD Work Phone: [facility] [employer] 02-18-2024 03:11-0500 Systolic blood pressure 103 mm[Hg] Kaylee Bunch MD Work Phone: [facility] [employer] 02-18-2024 01:02-0500 Body temperature 97.7 [degF] Kaylee Bunch MD Work Phone: [employer] 02-14-2024 08:43-0500 Body temperature 97.2 [degF] Julissa Claudia DO Work Phone: [employer] 02-14-2024 08:43-0500 Diastolic blood pressure 82 mm[Hg] Julissa Claudia DO Work Phone: [employer] 02-14-2024 08:43-0500 Heart rate 80 /min Julissa Claudia DO Work Phone: [employer] 02-14-2024 08:43-0500 Respiratory rate 18 /min Julissa Claudia DO Work Phone: [employer] 02-14-2024 08:43-0500 Systolic blood pressure 122 mm[Hg] Julissa Claudia DO Work Phone: [employer] 02-07-2024 09:15-0400 Body temperature 97.81 [degF] Julissa Claudia DO Work Phone: [employer] 02-07-2024 09:15-0400 Diastolic blood pressure 69 mm[Hg] Julissa Claudia DO Work Phone: [employer] 02-07-2024 09:15-0400 Heart rate 89 /min Julissa Claudia DO Work Phone: [employer] 02-07-2024 09:15-0400 Respiratory rate 18 /min Julissa Claudia DO Work Phone: [employer] 02-07-2024 09:15-0400 Systolic blood pressure 100 mm[Hg] Julissa Claudia DO Work Phone: [employer] 01-31-2024 08:18-0400 Body temperature 97.11 [degF] Julissa Claudia DO Work Phone: [employer] 01-31-2024 08:18-0400 Diastolic blood pressure 74 mm[Hg] Julissa Claudia DO Work Phone: [facility] [employer] 01-31-2024 08:18-0400 Heart rate 89 /min Julissa Claudia DO Work Phone: [facility] [employer] 01-31-2024 08:18-0400 Respiratory rate 18 /min Julissa Claudia DO Work Phone: [facility] [employer] 01-31-2024 08:18-0400 Systolic blood pressure 106 mm[Hg] Julissa Claudia DO Work Phone: [facility] [employer] 01-24-2024 10:12-0400 Body temperature 96.8 [degF] Julissa Claudia DO Work Phone: [facility] [employer] 01-24-2024 10:12-0400 Diastolic blood pressure 78 mm[Hg] Julissa Claudia DO Work Phone: [facility] [employer] 01-24-2024 10:12-0400 Heart rate 89 /min Julissa Claudia DO Work Phone: [facility] [employer] 01-24-2024 10:12-0400 Respiratory rate 18 /min Julissa Claudia DO Work Phone: [facility] [employer] 01-24-2024 10:12-0400 Systolic blood pressure 110 mm[Hg] Julissa Claudia DO Work Phone: [facility] [employer] 01-17-2024 09:53-0400 Body temperature 97.5 [degF] Julissa Claudia DO Work Phone: [facility] [employer] 01-17-2024 09:53-0400 Diastolic blood pressure 93 mm[Hg] Julissa Claudia DO Work Phone: [facility] [employer] 01-17-2024 09:53-0400 Heart rate 91 /min Julissa Claudia DO Work Phone: [facility] [employer] 01-17-2024 09:53-0400 Respiratory rate 20 /min Julissa Claudia DO Work Phone: [facility] [employer] 01-17-2024 09:53-0400 Systolic blood pressure 131 mm[Hg] Julissa Claudia DO Work Phone: [facility] [employer] 01-10-2024 09:29-0400 Body temperature 97.3 [degF] Julissa Claudia DO Work Phone: [facility] [employer] 01-10-2024 09:29-0400 Diastolic blood pressure 78 mm[Hg] Julissa Claudia DO Work Phone: [facility] [employer] 01-10-2024 09:29-0400 Heart rate 92 /min Julissa Claudia DO Work Phone: [facility] [employer] 01-10-2024 09:29-0400 Respiratory rate 18 /min Julissa Claudia DO Work Phone: [facility] [employer] 01-10-2024 09:29-0400 Systolic blood pressure 121 mm[Hg] Julissa Claudia DO Work Phone: [facility] [employer] 01-03-2024 15:08-0400 Body temperature 97.81 [degF] Julissa Claudia DO Work Phone: [facility] [employer] 01-03-2024 15:08-0400 Diastolic blood pressure 66 mm[Hg] Julissa Claudia DO Work Phone: [facility] [employer] 01-03-2024 15:08-0400 Heart rate 76 /min Julissa Claudia DO Work Phone: [facility] [employer] 01-03-2024 15:08-0400 Respiratory rate 18 /min Julissa Claudia DO Work Phone: [facility] [employer] 01-03-2024 15:08-0400 Systolic blood pressure 100 mm[Hg] Julissa Claudia DO Work Phone: [facility] [employer] 12-27-2023 13:43-0400 Body temperature 97.5 [degF] Julissa Claudia DO Work Phone: [facility] [employer] 12-27-2023 13:43-0400 Diastolic blood pressure 65 mm[Hg] Julissa Claudia DO Work Phone: [facility] [employer] 12-27-2023 13:43-0400 Heart rate 62 /min Julissa Claudia DO Work Phone: [facility] [employer] 12-27-2023 13:43-0400 Respiratory rate 18 /min Julissa Claudia DO Work Phone: [facility] [employer] 12-27-2023 13:43-0400 Systolic blood pressure 111 mm[Hg] Julissa Claudia DO Work Phone: [facility] [employer] 12-20-2023 11:10-0400 Body temperature 98.01 [degF] Julissa Claudia DO Work Phone: [facility] [employer] 12-20-2023 11:10-0400 Diastolic blood pressure 74 mm[Hg] Julissa Claudia DO Work Phone: [facility] [employer] 12-20-2023 11:10-0400 Heart rate 64 /min Julissa Claudia DO Work Phone: [facility] [employer] 12-20-2023 11:10-0400 Respiratory rate 18 /min Julissa Claudia DO Work Phone: [facility] [employer] 12-20-2023 11:10-0400 Systolic blood pressure 108 mm[Hg] Julissa Claudia DO Work Phone: [facility] [employer] 12-13-2023 15:19-0400 Body temperature 97.5 [degF] Julissa Claudia DO Work Phone: [facility] [employer] 12-13-2023 15:19-0400 Diastolic blood pressure 68 mm[Hg] Julissa Claudia DO Work Phone: [facility] [employer] 12-13-2023 15:19-0400 Heart rate 62 /min Julissa Claudia DO Work Phone: [facility] [employer] 12-13-2023 15:19-0400 Systolic blood pressure 109 mm[Hg] Julissa Claudia DO Work Phone: [facility] [employer] 12-06-2023 10:53-0400 Body temperature 97.9 [degF] Julissa Claudia DO Work Phone: [facility] [employer] 12-06-2023 10:53-0400 Diastolic blood pressure 63 mm[Hg] Julissa Claudia DO Work Phone: [facility] [employer] 12-06-2023 10:53-0400 Heart rate 62 /min Julissa Claudia DO Work Phone: [facility] [employer] 12-06-2023 10:53-0400 Respiratory rate 18 /min Julissa Claudia DO Work Phone: [facility] [employer] 12-06-2023 10:53-0400 Systolic blood pressure 94 mm[Hg] Julissa Claudia DO Work Phone: [facility] [employer] 11-29-2023 10:35-0400 Body temperature 97.11 [degF] Julissa Claudia DO Work Phone: [facility] [employer] 11-29-2023 10:35-0400 Diastolic blood pressure 73 mm[Hg] Julissa Claudia DO Work Phone: [facility] [employer] 11-29-2023 10:35-0400 Heart rate 66 /min Julissaamanda Nelsone DO Work Phone: [facility] [employer] 11-29-2023 10:35-0400 Systolic blood pressure 114 mm[Hg] Julissa Claudia DO Work Phone: [facility] [employer] 11-22-2023 10:57-0400 Body temperature 97.39 [degF] Julissa Claudia DO Work Phone: [facility] [employer] 11-22-2023 10:57-0400 Diastolic blood pressure 75 mm[Hg] Julissa Claudia DO Work Phone: [facility] [employer] 11-22-2023 10:57-0400 Heart rate 79 /min Julissa Claudia DO Work Phone: [facility] [employer] 11-22-2023 10:57-0400 Systolic blood pressure 106 mm[Hg] Julissa Claudia DO Work Phone: [facility] [employer] 11-17-2023 10:35-0400 Body temperature 97.11 [degF] [facility] Schedule [facility] 11-17-2023 10:35-0400 Diastolic blood pressure 83 mm[Hg] [facility] Schedule [facility] 11-17-2023 10:35-0400 Heart rate 81 /min Wr Schedule [facility] 11-17-2023 10:35-0400 Respiratory rate 18 /min Wr Schedule [facility] 11-17-2023 10:35-0400 Systolic blood pressure 119 mm[Hg] [facility] Schedule [facility] 11-15-2023 11:07-0400 Body temperature 97.59 [degF] Julissa Claudia DO Work Phone: [facility] 11-15-2023 11:07-0400 Diastolic blood pressure 69 mm[Hg] Julissa Claudia DO Work Phone: [facility] 11-15-2023 11:07-0400 Heart rate 62 /min Julissa Claudia DO Work Phone: [facility] 11-15-2023 11:07-0400 Respiratory rate 18 /min Julissa Claudia DO Work Phone: [facility] 11-15-2023 11:07-0400 Systolic blood pressure 102 mm[Hg] Julissa Claudia DO Work Phone: [facility] 11-08-2023 09:45-0400 Body temperature 98.29 [degF] Julissa Claudia DO Work Phone: [facility] 11-08-2023 09:45-0400 Diastolic blood pressure 71 mm[Hg] Julissa Claudia DO Work Phone: [facility] 11-08-2023 09:45-0400 Heart rate 91 /min Julissa Claudia DO Work Phone: [facility] 11-08-2023 09:45-0400 Respiratory rate 20 /min Julissa Claudia DO Work Phone: [facility] 11-08-2023 09:45-0400 Systolic blood pressure 140 mm[Hg] Julissa Claudia DO Work Phone: [facility] 11-01-2023 08:53-0400 Body temperature 98.01 [degF] Julissa Claudia DO Work Phone: [facility] 11-01-2023 08:53-0400 Diastolic blood pressure 75 mm[Hg] Julissa Claudia DO Work Phone: [facility] 11-01-2023 08:53-0400 Heart rate 155 /min Julissa Claudia DO Work Phone: [facility] [employer] 11-01-2023 08:53-0400 Respiratory rate 18 /min Julissa Claudia DO Work Phone: [facility] [employer] 11-01-2023 08:53-0400 Systolic blood pressure 101 mm[Hg] Julissa Claudia DO Work Phone: [facility] [employer] 10-25-2023 08:51-0400 Body temperature 96.8 [degF] Julissa Claudia DO Work Phone: [facility] [employer] 10-25-2023 08:51-0400 Diastolic blood pressure 74 mm[Hg] Julissa Claudia DO Work Phone: [facility] [employer] 10-25-2023 08:51-0400 Heart rate 63 /min Julissa Claudia DO Work Phone: [facility] [employer] 10-25-2023 08:51-0400 Respiratory rate 18 /min Julissa Claudia DO Work Phone: [facility] [employer] 10-25-2023 08:51-0400 Systolic blood pressure 119 mm[Hg] Julissa Claudia DO Work Phone: [facility] [employer] 10-18-2023 10:30-0400 Body temperature 97.2 [degF] Julissa Claudia DO Work Phone: [facility] [employer] 10-18-2023 10:30-0400 Diastolic blood pressure 94 mm[Hg] Julissa Claudia DO Work Phone: [facility] [employer] 10-18-2023 10:30-0400 Heart rate 69 /min Julissa Claudia DO Work Phone: [facility] [employer] 10-18-2023 10:30-0400 Respiratory rate 18 /min Julissa Claudia DO Work Phone: [facility] [employer] 10-18-2023 10:30-0400 Systolic blood pressure 139 mm[Hg] Julissa Claudia DO Work Phone: [facility] [employer] 10-11-2023 08:55-0400 Body temperature 97.5 [degF] Julissa Claudia DO Work Phone: [facility] [employer] 10-11-2023 08:55-0400 Diastolic blood pressure 79 mm[Hg] Julissaamanda Nelsone DO Work Phone: [facility] [employer] 10-11-2023 08:55-0400 Heart rate 79 /min Julissaamanda Nelsone DO Work Phone: [facility] [employer] 10-11-2023 08:55-0400 Respiratory rate 18 /min Julissa Taylor DO Work Phone: [facility] [employer] 10-11-2023 08:55-0400 Systolic blood pressure 122 mm[Hg] Julissa Nelsone DO Work Phone: [facility] [employer] 10-04-2023 13:55-0400 Body height 177.8 cm Julissa Nelsone DO Work Phone: [facility] [employer] 10-04-2023 13:55-0400 Body mass index (BMI) [Ratio] 36.3 kg/m2 Julissa Nelsone DO Work Phone: [facility] [employer] 10-04-2023 13:55-0400 Body temperature 97.7 [degF] Julissa Taylor DO Work Phone: [facility] [employer] 10-04-2023 13:55-0400 Body weight 114.76 kg Julissa Nelsone DO Work Phone: [facility] [employer] 10-04-2023 13:55-0400 Diastolic blood pressure 70 mm[Hg] Julissaamanda Nelsone DO Work Phone: [facility] [employer] 10-04-2023 13:55-0400 Heart rate 79 /min Julissa Taylor DO Work Phone: [facility] [employer] 10-04-2023 13:55-0400 Systolic blood pressure 110 mm[Hg] Julissaamanda Nelsone DO Work Phone: [facility] [employer] 09-27-2023 13:13-0400 Body height 177.8 cm Julissa Nelsone DO Work Phone: [facility] [employer] 09-27-2023 13:13-0400 Body mass index (BMI) [Ratio] 36.3 kg/m2 Julissa Nelsone DO Work Phone: [facility] [employer] 09-27-2023 13:13-0400 Body temperature 97.7 [degF] Julissa Nelsone DO Work Phone: [facility] [employer] 09-27-2023 13:13-0400 Body weight 114.76 kg Julissa Nelsone DO Work Phone: [facility] [employer] 09-27-2023 13:13-0400 Diastolic blood pressure 63 mm[Hg] Julissaamanda Nelsone DO Work Phone: [facility] [employer] 09-27-2023 13:13-0400 Heart rate 88 /min Julissa Nelsone DO Work Phone: [facility] [employer] 09-27-2023 13:13-0400 Systolic blood pressure 94 mm[Hg] Julissa Nelsone DO Work Phone: [facility] [employer] 09-20-2023 14:34-0400 Body height 177.8 cm Julissa Nelsone DO Work Phone: [facility] [employer] 09-20-2023 14:34-0400 Body mass index (BMI) [Ratio] 36.3 kg/m2 Julissa Taylor DO Work Phone: [facility] [employer] 09-20-2023 14:34-0400 Body temperature 97.2 [degF] Julissa Taylor DO Work Phone: [facility] [employer] 09-20-2023 14:34-0400 Body weight 114.76 kg Julissa Taylor DO Work Phone: [facility] [employer] 09-20-2023 14:34-0400 Diastolic blood pressure 75 mm[Hg] Julissaamanda Nelsone DO Work Phone: [facility] [employer] 09-20-2023 14:34-0400 Heart rate 71 /min Julissa Taylor DO Work Phone: [facility] [employer] 09-20-2023 14:34-0400 Systolic blood pressure 115 mm[Hg] Julissa Nelsone DO Work Phone: [facility] [employer] 09-13-2023 14:17-0400 Body temperature 97.5 [degF] Julissaamanda Nelsone DO Work Phone: [facility] [employer] 09-13-2023 14:17-0400 Diastolic blood pressure 60 mm[Hg] Julissaamanda Nelsone DO Work Phone: [facility] [employer] 09-13-2023 14:17-0400 Heart rate 58 /min Julissaamanda Nelsone DO Work Phone: [facility] [employer] 09-13-2023 14:17-0400 Respiratory rate 20 /min Julissaamanda Nelsone DO Work Phone: [facility] [employer] 09-13-2023 14:17-0400 Systolic blood pressure 105 mm[Hg] Julissaamanda Nelsone DO Work Phone: [facility] [employer] 09-06-2023 13:34-0400 Body height 177.8 cm Julissaamanda Nelsone DO Work Phone: [facility] [employer] 09-06-2023 13:34-0400 Body mass index (BMI) [Ratio] 36.3 kg/m2 Julissaamanda Nelsone DO Work Phone: [facility] [employer] 09-06-2023 13:34-0400 Body temperature 97.59 [degF] Julissa Nelsone DO Work Phone: [facility] [employer] 09-06-2023 13:34-0400 Body weight 114.76 kg Julissaamanda Nelsone DO Work Phone: [facility] [employer] 09-06-2023 13:34-0400 Diastolic blood pressure 80 mm[Hg] Julissaamanda Nelsone DO Work Phone: [facility] [employer] 09-06-2023 13:34-0400 Heart rate 57 /min Julissaamanda Nelsone DO Work Phone: [facility] [employer] 09-06-2023 13:34-0400 Systolic blood pressure 119 mm[Hg] Julissaamanda Nelsone DO Work Phone: [facility] [employer] 08-30-2023 09:20-0400 Body height 177.8 cm Julissa Nelsone DO Work Phone: [facility] [employer] 08-30-2023 09:20-0400 Body mass index (BMI) [Ratio] 36.3 kg/m2 Julissaamanda Nelsone DO Work Phone: [facility] [employer] 08-30-2023 09:20-0400 Body temperature 97.39 [degF] Julissa Claudia DO Work Phone: [facility] [employer] 08-30-2023 09:20-0400 Body weight 114.76 kg Julissaamanda Nelsone DO Work Phone: [facility] [employer] 08-30-2023 09:20-0400 Diastolic blood pressure 86 mm[Hg] Julissa Claudia DO Work Phone: [facility] [employer] 08-30-2023 09:20-0400 Heart rate 79 /min Julissaamanda Nelsone DO Work Phone: [facility] [employer] 08-30-2023 09:20-0400 Systolic blood pressure 126 mm[Hg] Julissaamanda Nelsone DO Work Phone: [facility] [employer] 08-23-2023 14:03-0400 Body mass index (BMI) [Ratio] 36.3 kg/m2 Julissaamanda Nelsone DO Work Phone: [facility] [employer] 08-23-2023 14:03-0400 Body temperature 98.2 [degF] Julissa Nelsone DO Work Phone: [facility] [employer] 08-23-2023 14:03-0400 Body weight 114.76 kg Julissaamanda Nelsone DO Work Phone: [facility] [employer] 08-23-2023 14:03-0400 Diastolic blood pressure 67 mm[Hg] Julissa Claduia DO Work Phone: [facility] [employer] 08-23-2023 14:03-0400 Heart rate 82 /min Julissa Claudia DO Work Phone: [facility] [employer] 08-23-2023 14:03-0400 Respiratory rate 18 /min Julissa Claudia DO Work Phone: [facility] [employer] 08-23-2023 14:03-0400 Systolic blood pressure 93 mm[Hg] Julissa Claudia DO Work Phone: [facility] [employer] 06-23-2023 03:03-0400 Diastolic blood pressure 90 mm[Hg] Fred Holloway MD Work Phone: [facility] [employer] 06-23-2023 03:03-0400 Heart rate 81 /min Fred Holloway MD Work Phone: [facility] 06-23-2023 03:03-0400 Respiratory rate 14 /min Fred Holloway MD Work Phone: [facility] 06-23-2023 03:03-0400 SaO2% (BldA) [Mass fraction] 96 % Fred Holloway MD Work Phone: [facility] [employer] 06-23-2023 03:03-0400 Systolic blood pressure 153 mm[Hg] Fred Holloway MD Work Phone: [facility] 06-22-2023 21:52-0400 Body height 177.8 cm Fred Holloway MD Work Phone: [facility] [employer] 06-22-2023 21:52-0400 Body temperature 97.9 [degF] Fred Holloway MD Work Phone: [facility] 06-16-2023 14:09-0500 Diastolic blood pressure 68 mm[Hg] Chhaya Saldana MD Work Phone: [facility] 06-16-2023 14:09-0500 Heart rate 56 /min Chhaya Saldana MD Work Phone: [facility] 06-16-2023 14:09-0500 SaO2% (BldA) [Mass fraction] 96 % Chhaya Saldana MD Work Phone: [facility] 06-16-2023 14:09-0500 Systolic blood pressure 93 mm[Hg] Chhaya Saldana MD Work Phone: [facility] 11-17-2022 13:14-0400 Body height 185.4 cm Jesús Ellis MD Work Phone: [facility] 11-17-2022 13:14-0400 Body mass index (BMI) [Ratio] 33.38 kg/m2 Jesús Ellis MD Work Phone: [employer] 11-17-2022 13:14-0400 Body temperature 97.9 [degF] Jesús Ellis MD Work Phone: [employer] 11-17-2022 13:14-0400 Body weight 114.76 kg Jesús Ellis MD Work Phone: [employer] 11-17-2022 13:14-0400 Diastolic blood pressure 80 mm[Hg] Jesús Ellis MD Work Phone: [employer] 11-17-2022 13:14-0400 Heart rate 57 /min Jesús Ellis MD Work Phone: [employer] 11-17-2022 13:14-0400 Respiratory rate 16 /min Jesús Ellis MD Work Phone: [facility] [employer] 11-17-2022 13:14-0400 SaO2% (BldA) [Mass fraction] 96 % Jesús Ellis MD Work Phone: [facility] [employer] 11-17-2022 13:14-0400 Systolic blood pressure 125 mm[Hg] Jesús Ellis MD Work Phone: [employer] 11-16-2022 09:51-0400 Body mass index (BMI) [Ratio] 32.14 kg/m2 Josette Joe PA-C Work Phone: [employer] 11-16-2022 09:51-0400 Body temperature 98.01 [degF] Josette Joe PA-C Work Phone: [employer] 11-16-2022 09:51-0400 Body weight 107.5 kg Josette Joe PA-C Work Phone: [employer] 11-16-2022 09:51-0400 Diastolic blood pressure 60 mm[Hg] Josette Joe PA-C Work Phone: [employer] 11-16-2022 09:51-0400 Heart rate 60 /min Josette Joe PA-C Work Phone: [employer] 11-16-2022 09:51-0400 Systolic blood pressure 90 mm[Hg] Josette Diaz PA-C Work Phone: [facility] [employer] 07-29-2022 11:58-0400 Body temperature 98.2 [degF] Brady Powell MD Work Phone: [facility] [employer] 07-29-2022 11:58-0400 Diastolic blood pressure 56 mm[Hg] Brady Powell MD Work Phone: [facility] [employer] 07-29-2022 11:58-0400 Heart rate 68 /min Brady Powell MD Work Phone: [facility] [employer] 07-29-2022 11:58-0400 Systolic blood pressure 102 mm[Hg] Brady Powell MD Work Phone: [facility] [employer] 06-23-2022 13:05-0400 Body height 188 cm Tresa Smallwood DO Work Phone: [facility] [employer] 06-23-2022 12:03-0400 Body temperature 98.91 [degF] Tresagifty Smallwood DO Work Phone: [facility] [employer] 06-23-2022 12:03-0400 Diastolic blood pressure 95 mm[Hg] Tresa Smallwood DO Work Phone: [facility] [employer] 06-23-2022 12:03-0400 Heart rate 97 /min Tresa Smallwood DO Work Phone: [facility] [employer] 06-23-2022 12:03-0400 Respiratory rate 18 /min Tresagifty Smallwood DO Work Phone: [facility] [employer] 06-23-2022 12:03-0400 SaO2% (BldA) [Mass fraction] 95 % Tresa Smallwood DO Work Phone: [facility] [employer] 06-23-2022 12:03-0400 Systolic blood pressure 127 mm[Hg] Tresanorman Smallwood DO Work Phone: [facility] [employer] 06-22-2022 06:00-0400 Body mass index (BMI) [Ratio] 31.83 kg/m2 Tresa Smallwood DO Work Phone: [employer] 06-22-2022 06:00-0400 Body weight 112.5 kg Tresa Smallwood DO Work Phone: [employer] 06-16-2022 09:44-0500 SaO2% (BldA) [Mass fraction] 94.0 % Tresa Smallwood DO Work Phone: [employer] 06-26-2020 19:13-0400 BP Diastolic 92 mm[Hg] Loki CORTES Work Phone: 06-26-2020 19:13-0400 BP Systolic 183 mm[Hg] Loki CORTES Work Phone: 06-26-2020 19:13-0400 Pulse (Heart Rate) 80 /min Loki CORTES Work Phone: 06-26-2020 19:13-0400 Pulse Oximetry 98 % Loki CORTES Work Phone: 06-26-2020 19:13-0400 Respiratory Rate 18 /min Loki CORTES Work Phone: 06-26-2020 17:20-0400 Body Temperature 97.9 [degF] Loki CORTES Work Phone: 02-19-2020 20:13-0500 Body Temperature 98.2 [degF] Melly Marinelli [employer] [facility] [place] 02-19-2020 20:13-0500 BP Diastolic 84 mm[Hg] Melly NunezFormerly [facility] [employer] [place] , [place] 02-19-2020 20:13-0500 BP Systolic 146 mm[Hg] Melly NunezFormerly [facility] [employer] [place] 02-19-2020 20:13-0500 Pulse (Heart Rate) 85 /min [facility] [place] 02-19-2020 20:13-0500 Pulse Oximetry 95 % Melly Marinelli [facility] , [place] 02-19-2020 20:13-0500 Respiratory Rate 18 /min Melly Marinelli [facility] [place] 04-05-2019 17:19-0500 Diastolic blood pressure 76 mm[Hg] Jesús Ellis MD Work Phone: [facility] Work Phone: 04-05-2019 17:19-0500 Respiratory rate 16 /min Jesús Ellis MD Work Phone: [employer] Work Phone: 04-05-2019 17:19-0500 Systolic blood pressure 114 mm[Hg] Jesús Ellis MD Work Phone: [facility] Work Phone: 04-05-2019 17:18-0500 Heart rate 80 /min Jesús Ellis MD Work Phone: [employer] Work Phone: 04-05-2019 17:18-0500 SaO2% (BldA) [Mass fraction] 100 % Jesús Ellis MD Work Phone: [facility] Work Phone: 04-05-2019 13:20-0500 Body height 185.4 cm Jesús Ellis MD Work Phone: [facility] Work Phone: 04-05-2019 13:20-0500 Body mass index (BMI) [Ratio] 32.72 kg/m2 Jesús Ellis MD Work Phone: [facility] Work Phone: 04-05-2019 13:20-0500 Body temperature 97.81 [degF] Jesús Ellis MD Work Phone: [facility] Work Phone: 04-05-2019 13:20-0500 Body weight 112.49 kg Jesús Ellis MD Work Phone: [facility] Work Phone: Encounters Encounter Date Encounter Type Care Provider Facility Start: 07-29-2024 End: 07-29-2024 ambulatory Demetrius Fenton [facility] Work Phone: Start: 07-29-2024 End: 07-29-2024 Departed Referred [facility]us [facility] Start: 07-29-2024 Registered Referred Demetrius Jar[facility] [employer] Start: 07-29-2024 End: 07-29-2024 ambulatory Demetrius WICK Facility:[facility] Start: 07-22-2024 End: 07-22-2024 ambulatory Demetrius Lilliesonja SHAMIKA [facility] Work Phone: Start: 07-22-2024 End: 07-22-2024 Departed Referred [facility]rius [facility] [employer] Start: 07-22-2024 Registered Referred Demetrius Lilliesonja [facility] [employer] Start: 07-22-2024 End: 07-22-2024 ambulatory Demetrius WICK Facility:[facility] Start: 07-08-2024 End: 07-08-2024 Patient encounter procedure Chhaya Saldana MD Work Phone: Neurology Comment on above: Chronic daily headac he (Primary Dx); Traumatic brain injury with loss of consciousness, sequela Start: 07-08-2024 End: 07-08-2024 ambulatory DEMETRIUS FENTON [facility] [facility] Start: 07-08-2024 End: 07-08-2024 Departed Referred [facility]rius [facility]ja [facility] [employer] Start: 07-08-2024 Registered Referred Demetrius Lilliesunday [facility] Start: 07-08-2024 End: 07-08-2024 ambulatory Demetrius WICK Facility:[facility] Start: 06-10-2024 End: 06-10-2024 ambulatory Demetrius Lilliesonja WICK [facility] Work Phone: Start: 06-10-2024 End: 06-10-2024 Departed Referred [facility]rius Fenton [facility] Start: 06-10-2024 End: 06-10-2024 ambulatory Demetrius WICK Facility:[facility] Start: 04-09-2024 End: 04-09-2024 Office outpatient visit 15 minutes Danielle Arreola DPM Work Phone: [facility] Comment on above: 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) (Primary Dx); Peripheral venous insufficiency [I87.2]; Chronic venous hypertension (idiopathic) with ulcer of left lower extremity (CODE) (HCC) [I87.312]; Chronic venous hypertension (idiopathic) with ulcer of right lower extremity (CODE) (HCC) [I87.311]; Non-pressure chronic ulcer of other part of right lower leg with fat layer 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) [L97.812]; Non-pressure chronic ulcer of other part of left lower leg with fat layer 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) [L97.822]; Non-pressure chronic ulcer left lower leg, limited to breakdown skin (HCC); Venous insufficiency (chronic) (peripheral); Decreased mobility; Lymphedema Start: 04-09-2024 End: 04-09-2024 ambulatory [facility] Start: 03-27-2024 End: 03-27-2024 Office outpatient visit 15 minutes Julissa Taylor DO Work Phone: [facility] Comment on above: 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) (Primary Dx); Peripheral venous insufficiency [I87.2] Start: 03-27-2024 End: 03-27-2024 ambulatory DEMETRIUS LILLIESUNDAY [facility] Start: 03-20-2024 End: 03-20-[address] [facility] Start: 03-18-2024 ambulatory Demetrius Lilliesonja Mitchelli lity:[facility] Start: 03-13-2024 End: 03-13-2024 Subsequent hospital visit by physician Julissa Taylor DO Work Phone: [facility] Comment on above: Arrived Start: 03-13-2024 End: 03-13-[address] [facility] Start: 03-13-2024 ambulatory Demetrius Suzy SHAMIKA Mitchelli lity:[facility] Start: 03-13-2024 Registered Referred Demetrius Fenton - [facility] Start: 03-06-2024 End: 03-06-2024 Subsequent hospital visit by physician Anai Fox CNP Work Phone: [facility] Comment on above: Chronic venous hyper tension (idiopathic) with ulcer of right lower extremity (CODE) (HCC) [I87.311] (Primary Dx); Non-pressure chronic ulcer of other part of right lower leg with fat layer 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) [L97.812]; Chronic venous hypertension (idiopathic) with ulcer of left lower extremity (CODE) (HCC) [I87.312]; Non-pressure chronic ulcer of other part of left lower leg with fat layer 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) [L97.822]; Peripheral venous insufficiency [I87.2] Start: 03-06-2024 End: 03-06-[address] [facility] Start: 02-28-2024 End: 02-28-2024 Subsequent hospital visit by physician Julissa Taylor DO Work Phone: [facility] Dominique Gar Comment on above: 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) (Primary Dx); Non-pressure chronic ulcer left lower leg, limited to breakdown skin (HCC); Venous insufficiency (chronic) (peripheral); Decreased mobility Start: 02-28-2024 End: 02-28-[address] [facility] Start: 02-21-2024 End: 02-21-2024 Subsequent hospital visit by physician Julissa Taylor DO Work Phone: [facility] Dominique Gar Comment on above: Arrived Start: 02-21-2024 End: 02-21-[address] 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) (Primary Dx); Venous insufficiency (chronic) (peripheral); Decreased mobility Start: 02-14-2024 End: 02-14-2024 ambulatory DEMETRIUS FENTON [facility] Start: 02-07-2024 End: 02-07-2024 [facility] Start: 02-07-2024 End: 02-07-2024 Office outpatient visit 15 minutes Julissa Taylor DO Work Phone: [facility] Comment on above: 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) (Primary Dx); Venous insufficiency (chronic) (peripheral); Decreased mobility Start: 01-31-2024 End: 01-31-2024 Office outpatient visit 15 minutes Julissa Taylor DO Work Phone: [facility] Comment on above: 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) (Primary Dx); Venous insufficiency (chronic) (peripheral); Decreased mobility Start: 01-31-2024 End: 01-31-2024 [facility] Start: 01-29-2024 End: 01-29-2024 ambulatory [facility] Facility[facility] Start: 01-24-2024 End: 01-24-2024 ambulatory DEMETRIUS H[facility]ERSUNDAY [facility] Start: 01-24-2024 End: 01-24-2024 Office outpatient visit 15 minutes Julissa Taylor DO Work Phone: [facility] Comment on above: 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) (Primary Dx); Venous insufficiency (chronic) (peripheral); Decreased mobility Start: 01-17-2024 End: 01-17-2024 ambulatory DEMETRIUS [facility] Start: 01-17-2024 End: 01-17-2024 Office outpatient visit 15 minutes Julissa Taylor DO Work Phone: [facility] Comment on above: 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) (Primary Dx); Venous insufficiency (chronic) (peripheral); Decreased mobility Start: 01-10-2024 End: 01-10-2024 [facility] Start: 01-10-2024 End: 01-10-2024 Office outpatient visit 15 minutes Julissa Taylor DO Work Phone: [facility] Comment on above: 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) (Primary Dx); Venous insufficiency (chronic) (peripheral); Decreased mobility Start: 01-09-2024 End: 01-09-2024 ambulatory [facility]us Fenton [facility] Facility:[facility] Start: 01-03-2024 End: 01-03-2024 Office outpatient visit 15 minutes Julissa Taylor DO Work Phone: [facility] Comment on above: 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) (Primary Dx); Venous insufficiency (chronic) (peripheral); Decreased mobility Start: 01-03-2024 End: 01-03-2024 ambulatory DEMETRIUS [facility] Start: 12-27-2023 End: 12-27-2023 Subsequent hospital visit by physician Julissa Taylor DO Work Phone: [facility] Comment on above: Arrived Start: 12-27-2023 End: 12-27-2023 [facility] Start: 12-20-2023 End: 12-20-2023 Office outpatient visit 15 minutes Julissa Taylor DO Work Phone: [facility] Comment on above: 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) (Primary Dx); Venous insufficiency (chronic) (peripheral); Lymphedema; Decreased mobility Start: 12-20-2023 End: 12-20-[address] [facility] Start: 12-13-2023 End: 12-13-2023 Office outpatient visit 15 minutes Julissa Taylor DO Work Phone: [facility] Comment on above: 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) (Primary Dx); Venous insufficiency (chronic) (peripheral); Lymphedema; Decreased mobility Start: 12-13-2023 End: 12-13-[address] [facility] Start: 12-06-2023 End: 12-06-[address] [facility] Start: 12-06-2023 End: 12-06-2023 Office outpatient visit 15 minutes Julissa Taylor DO Work Phone: [facility] Comment on above: 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) (Primary Dx); Venous insufficiency (chronic) (peripheral); Lymphedema; Decreased mobility Start: 11-29-2023 End: 11-29-[address] [facility] Start: 11-29-2023 End: 11-29-2023 Office outpatient visit 15 minutes Julissa Taylor DO Work Phone: [facility] Comment on above: 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) (Primary Dx); Venous insufficiency (chronic) (peripheral); Lymphedema; Decreased mobility Start: 11-22-2023 End: 11-22-[address] [facility] Start: 11-22-2023 End: 11-22-2023 Subsequent hospital visit by physician Julissa Mack Phone: [facility] Comment on above: 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 Nurse Schedule [facility] Comment on above: 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) Start: 11-17-2023 End: 11-17-[address] [facility] Start: 11-15-2023 End: 11-15-[address] 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) (Primary Dx); Venous insufficiency (chronic) (peripheral); Lymphedema; Decreased mobility; Cellulitis of right lower leg Start: 11-08-2023 End: [facility]-08-2023 [facility] Start: 11-08-2023 End: 11-08-2023 Office outpatient visit 15 minutes Julissa Taylor DO Work Phone: [facility] Comment on above: 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 Start: 09-12-2023 [facility]ulatory [place] [facility] Start: 09-06-2023 End: 09-06-[address] 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); Lymphedema; Venous insufficiency (chronic) (peripheral); Non-pressure chronic ulcer right lower leg, limited to breakdown skin (HCC) Start: 08-30-2023 End: 08-30-2023 Subsequent hospital visit by physician Julissa Mack Phone: [facility] Comment on above: Venous insufficiency (chronic) (peripheral) (Primary Dx); Lymphedema; Non-pressure chronic ulcer right lower leg, limited to breakdown skin (HCC); 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); Decreased mobility Start: 08-23-2023 End: 08-23-2023 ambulatory JULISSA TAYLOR [facility] Start: 07-16-2023 Registered Referred [facility] Start: 06-28-2023 End: 06-28-2023 [facility] Work Phone: Start: 06-28-2023 End: 06-28-2023 Departed Referred [facility] Start: 06-27-2023 End: 06-27-2023 ambulatory [facility] Work Phone: Start: 06-27-2023 End: 06-27-2023 Departed Referred [facility] Start: 06-27-2023 Registered Referred [facility] Start: 06-22-2023 End: 06-23-2023 Emergency department patient visit Fred Holloway MD Work Phone: [facility] ED Comment on above: Cellulitis of right lower extremity (Primary Dx); Right lower quadrant abdominal pain; Constipation, unspecified constipation type Start: 06-21-2023 Telephone encounter Chhaya swann MD Work Phone: Neurology Comment on above: 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 Start: 03-14-2023 End: 03-14-2023 ambulatory [facility] Work Phone: Start: 03-14-2023 End: 03-14-2023 Departed Referred [facility] Start: 03-14-2023 [facility] Start: 03-13-2023 End: 03-13-2023 ambulatory [facility] Work Phone: Start: 03-13-2023 End: 03-13-2023 Departed Referred [facility] Start: 02-09-2023 End: 02-09-2023 ambulatory [facility] Work Phone: Start: 02-09-2023 End: 02-09-2023 [facility] Start: 01-09-2023 End: 01-09-2023 ambulatory [facility] Work Phone: Start: 01-09-2023 End: 01-09-2023 [facility] Start: 01-02-2023 End: 01-02-2023 Departed Referred [facility] Start: 12-14-2022 End: 12-14-2022 ambulatory [facility] Work Phone: Start: 12-14-2022 End: 12-14-2022 Departed Referred [facility] Start: 12-14-2022 Registered Referred [facility] Start: 11-28-2022 End: 11-28-2022 ambulatory [facility] Work Phone: Start: 11-28-2022 End: 11-28-2022 [facility] Start: 11-28-2022 Registered Referred [facility] Start: 11-21-2022 End: 11-21-2022 ambulatory [facility] Work Phone: Start: 11-21-2022 End: 11-21-2022 Departed Referred [facility] Start: 11-21-2022 Registered Referred [facility] Start: 11-17-2022 End: 11-17-2022 Emergency department patient visit Jesús Ellis MD Work Phone: [facility] Comment on above: Passive suicidal dana ations (Primary Dx) Start: 11-16-2022 End: 11-16-2022 Postop follow up visit related to original px Josette Diaz PA-C Work Phone: [facility] Comment on above: Encounter for postop erative care (Primary Dx) Start: 10-26-2022 End: 10-26-2022 Subsequent hospital visit by physician Candie Vieyra PA-C Work Phone: [facility] Comment on above: Calculus of gallblad javier without cholecystitis without obstruction; Peripancreatic abscess Start: 10-24-2022 End: 10-24-2022 [facility] Work Phone: Start: 10-24-2022 End: 10-24-2022 Departed Referred [facility] Start: 10-24-2022 Registered Referred [facility] Start: 10-14-2022 Orders Only Candie Vieyra PA-C Work Phone: [facility] Comment on above: Preop testing (Prima ry Dx) Start: 10-14-2022 Patient encounter status Tamir Vieyra PA-C Work Phone: [employer] Work Phone: Start: 10-03-2022 Telephone encounter Brady esquivel MD Work Phone: [facility] Start: 09-12-2022 End: 09-12-2022 ambulatory [facility] Work Phone: Start: 09-12-2022 End: 09-12-2022 Departed Referred [facility] Start: 09-12-2022 Registered Referred [facility] Start: 09-07-2022 End: 09-07-2022 ambulatory [facility] Work Phone: Start: 09-07-2022 End: 09-07-2022 Departed Referred [facility] Start: 08-22-2022 End: 08-22-2022 ambulatory [facility] Work Phone: Start: 08-22-2022 End: 08-22-2022 Departed Referred [facility] Start: 08-01-2022 Telephone encounter Candie de la torre PA-C Work Phone: [facility] Start: 08-01-2022 End: 08-01-2022 ambulatory [facility] Work Phone: Start: 08-01-2022 End: 08-01-2022 Departed Referred [facility] Start: 07-29-2022 End: 07-29-2022 Office outpatient new 45 minutes Brady Powell MD Work Phone: [facility] Comment on above: Calculus of gallblad javier without cholecystitis without obstruction (Primary Dx); Peripancreatic abscess; History of traumatic brain injury; Epigastric pain Start: 07-28-2022 End: 07-28-2022 Departed Referred [facility] Start: 07-18-2022 End: 07-18-2022 Departed Referred [facility] Start: 07-15-2022 Telephone encounter Brady esquivel MD Work Phone: [facility] Comment on above: OTHER Start: 06-30-2022 End: 06-30-2022 Departed Referred [facility] Start: 06-09-2022 Transcribe Stiven Finley Lilliebean os Work Phone: [facility] Central Scheduling Comment on above: Peripheral vascular disease, unspecified (HCC) (Primary Dx); Venous insufficiency (chronic) (peripheral); 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) Start: 06-07-2022 End: 06-23-2022 Evaluation and management of inpatient Tresa Smallwood DO Work Phone[facility] Start: 05-20-2022 End: 05-20-2022 ambulatory [facility] Work Phone: Start: 05-20-2022 End: 05-20-2022 Departed Referred [facility] Start: 05-20-2022 Registered Referred [facility] Start: 05-13-2022 End: 05-13-2022 Departed Referred [facility] Start: 04-29-2022 End: 04-29-2022 ambulatory [facility] Work Phone: Start: 04-29-2022 End: 04-29-2022 [facility]ed [facility] Start: 04-29-2022 Registered Referred [facility] Start: 04-22-2022 End: 04-22-2022 ambulatory [facility] Work Phone: Start: 04-22-2022 End: 04-22-2022 Departed Referred [facility] Start: 02-17-2022 End: 02-17-2022 ambulatory [facility] Work Phone: Start: 02-17-2022 End: 02-17-2022 Departed Referred [facility] Start: 02-17-2022 Registered Referred [facility] Start: 02-10-2022 End: 02-10-2022 ambulatory [facility] Work Phone: Start: 02-10-2022 End: 02-10-2022 Departed Referred [facility] Start: 01-17-2022 End: 01-17-2022 Departed Referred [facility] Start: 11-17-2021 End: 11-17-2021 ambulatory [facility] Work Phone: Start: 11-17-2021 End: 11-17-2021 Departed Referred [facility] Start: 10-20-2021 End: 10-20-2021 Subsequent hospital visit by physician Lorie Ospina INSURANCE FOLLOW UP REPRESENTATIVE - ADVANCED REGISTERED NURSE Work Phone: [facility] Start: 10-13-2021 End: 10-13-2021 Subsequent hospital visit by physician Lorie Ospina INSURANCE FOLLOW UP REPRESENTATIVE - ADVANCED REGISTERED NURSE Work Phone: [facility] Start: 10-06-2021 End: 10-06-2021 Subsequent hospital visit by physician Lorie Ospina APRN - ADVANCED REGISTERED NURSE Work Phone: [facility] Start: 09-29-2021 End: 09-29-2021 Subsequent hospital visit by physician Lorie Ospina INSURANCE FOLLOW UP REPRESENTATIVE - ADVANCED REGISTERED NURSE Work Phone: [facility] Start: 09-27-2021 Registered Referred [facility] Start: 09-17-2021 Registered Referred [facility] Start: 09-01-2021 End: 09-01-2021 Subsequent hospital visit by physician Lorie Ospina INSURANCE FOLLOW UP REPRESENTATIVE - ADVANCED REGISTERED NURSE Work Phone: [facility] Start: 08-19-2021 End: 08-19-2021 Subsequent hospital visit by physician Lorie Ospina INSURANCE FOLLOW UP REPRESENTATIVE - ADVANCED REGISTERED NURSE Work Phone: [facility] Start: 08-11-2021 End: 08-11-2021 Subsequent hospital visit by physician Lorie Ospina INSURANCE FOLLOW UP REPRESENTATIVE - ADVANCED REGISTERED NURSE Work Phone: [facility] Start: 07-28-2021 End: 07-28-2021 Subsequent hospital visit by physician Lorie Ospina APRN - ADVANCED REGISTERED NURSE Work Phone: [facility] Start: 06-30-2021 End: 06-30-2021 Subsequent hospital visit by physician Lorie Ospina APRN - ADVANCED REGISTERED NURSE Work Phone: [facility] Start: 06-15-2021 End: 06-15-2021 Subsequent hospital visit by physician Lorie Ospina APRN - ADVANCED REGISTERED NURSE Work Phone: [facility] Start: 06-08-2021 End: 06-08-2021 Subsequent hospital visit by physician Lorie Ospina APRN - ADVANCED REGISTERED NURSE Work Phone: [facility] Start: 06-08-2021 End: 06-08-2021 Departed Referred [facility] Start: 05-25-2021 End: 05-25-2021 Subsequent hospital visit by physician Lorie Ospina APRN - ADVANCED REGISTERED NURSE Work Phone: [facility] Start: 04-06-2021 Registered Referred [facility] Start: 06-26-2020 End: 06-26-2020 Emergency department patient visit Loki Hernandez Work Phone: [facility] ED Comment on above: Injury of head, init ial encounter (Primary Dx); Laceration of scalp, initial encounter Start: 02-19-2020 End: 02-19-2020 Emergency department patient visit Melly Marinelli Work Phone: [facility] ED Comment on above: Hypertensive urgency (Primary Dx); Acute nonintractable headache, unspecified headache type Start: 01-23-2020 End: 01-23-2020 Telephone encounter Margaret Christopher Work Phone: [place] [facility] Adult Comment on above: Appointment (needs o utpatient cystoscopy in the OR) Start: 04-05-2019 End: 04-05-2019 Emergency department patient visit Jesús Ellis MD Work Phone: [facility] Comment on above: Cellulitis of right lower extremity (Primary Dx); Elevated lactic acid level Procedures Date Procedure Procedure Detail Performing Clinician Start: 02-28-2024 Debridement subcutan eous tissue 20 sq cm/< Julissa J Claudia DO Work Phone: Start: 02-18-2024 Comprehensive metabo lic panel Kaylee Bunch MD Work Phone: Start: 02-18-2024 Ct head/brain w/o co ntrast material Kaylee Bunch MD Work Phone: Start: 11-22-2023 Debridement subcutan eous tissue 20 sq cm/< Julissa J Claudia DO Work Phone: Start: 10-25-2023 Debridement subcutan eous tissue 20 sq cm/< Julissa J Claudia DO Work Phone: Start: 10-11-2023 Debridement subcutan eous tissue 20 sq cm/< Julissa J Claudia DO Work Phone: Start: 10-04-2023 Debridement subcutan eous tissue 20 sq cm/< Julissa J Claudia DO Work Phone: Start: 09-13-2023 Debridement subcutan eous tissue 20 sq cm/< Julissa J Claudia DO Work Phone: Start: 09-06-2023 Debridement subcutan eous tissue 20 sq cm/< Julissa J Claudia DO Work Phone: Start: 08-30-2023 Debridement subcutan eous tissue 20 sq cm/< Julissa J Claudia DO Work Phone: Start: 06-28-2023 Investigation of transfusion reaction Start: 06-28-2023 Microbial culture, routine Start: 06-27-2023 Investigation of transfusion reaction Start: 06-27-2023 Microbial culture, routine Start: 06-23-2023 Bacteria identified in Blood by Culture Felicia Solorzano PA-C Work Phone: Start: 06-23-2023 Ct abdomen & pelvis w/contrast material Felicia Solorzano PA-C Work Phone: Start: 06-22-2023 Cul bact xcpt urine blood/stool aerobic isol Felicia Barriga Solorzano PA-C Work Phone: Start: 06-22-2023 Ecg routine ecg w/le ast 12 lds trcg only w/o i&r Felicia Byrden PA-C Work Phone: Start: 06-22-2023 Bacteria identified in Blood by Culture Felicia Solorzano PA-C Work Phone: Start: 06-22-2023 Comprehensive metabo lic panel Felicia Solorzano PA-C Work Phone: Start: 12-14-2022 Investigation of transfusion reaction Start: 12-14-2022 Microbial culture, routine Start: 09-07-2022 Investigation of transfusion reaction Start: 09-07-2022 Microbial culture, routine Start: 07-18-2022 Urine culture Start: 06-23-2022 End: 06-23-2022 Cyanocobalamin vitamin b-12 Zeynep Butlertanisha DUVAL Work Phone: Start: 06-23-2022 Comprehensive metabo lic panel Asia Nelson MD Work Phone: Start: 06-22-2022 Comprehensive metabo lic panel Asia Nelson MD Work Phone: Start: 06-22-2022 Manual differential performed [Presence] in Blood Asia Nelson MD Work Phone: Start: 06-21-2022 PULSE OXIMETRY, CONTINUOUS Tresa Smallwood DO Work Phone: Start: 06-21-2022 PULSE OXIMETRY, CONTINUOUS Tresa Smallwood DO Work Phone: Start: 06-21-2022 Comprehensive metabo lic panel Asia Nelson MD Work Phone: Start: 06-21-2022 Manual differential performed [Presence] in Blood Asia Nelson MD Work Phone: Start: 06-20-2022 PULSE OXIMETRY, CONTINUOUS Tresa Smallwood DO Work Phone: Start: 06-20-2022 PULSE OXIMETRY, CONTINUOUS Tresa Smallwood DO Work Phone: Start: 06-20-2022 Comprehensive metabo lic panel Asia Nelson MD Work Phone: Start: 06-19-2022 PULSE OXIMETRY, CONTINUOUS Tresa Smallwood DO Work Phone: Start: 06-19-2022 PULSE OXIMETRY, CONTINUOUS Tresa Smallwood DO Work Phone: Start: 06-19-2022 Radiologic exam ches t single view Asia Nelson MD Work Phone: Start: 06-19-2022 Comprehensive metabo lic panel Asia Nelson MD Work Phone: Start: 06-19-2022 Manual differential performed [Presence] in Blood Asia Nelson MD Work Phone: Start: 06-18-2022 PULSE OXIMETRY, CONTINUOUS Tresa Smallwood DO Work Phone: Start: 06-18-2022 SARS-CoV-2 (COVID-19 ) RNA panel - Respiratory specimen by FAN with probe detection Mignon Purdy MD Work Phone: Start: 06-18-2022 Radiologic exam ches t single view Asia Nelson MD Work Phone: Start: 06-18-2022 Comprehensive metabo lic panel Asia Nelson MD Work Phone: Start: 06-18-2022 Manual differential performed [Presence] in Blood Asia Nelson MD Work Phone: Start: 06-17-2022 PULSE OXIMETRY, CONTINUOUS Tresa Smallwood DO Work Phone: Start: 06-17-2022 Radiologic exam swal low function contrast study Asia Nelson MD Work Phone: Start: 06-17-2022 PULSE OXIMETRY, CONTINUOUS Tresa Smallwood DO Work Phone: Start: 06-17-2022 Radiologic exam ches t single view Asia Nelson MD Work Phone: Start: 06-17-2022 Comprehensive metabo lic panel Asia Nelson MD Work Phone: Start: 06-17-2022 Manual differential performed [Presence] in Blood Asia Nelson MD Work Phone: Start: 06-16-2022 PULSE OXIMETRY, CONTINUOUS Tresa Smallwood DO Work Phone: Start: 06-16-2022 Glucose quantitative blood xcpt reagent strip Asia Nelson MD Work Phone: Start: 06-16-2022 Drug screen quantita tive vancomycin Becky Dickerson MD Work Phone: Start: 06-16-2022 End: 06-16-2022 Assay of ammonia Jhon gilmore MD Work Phone: Start: 06-16-2022 Blood gases any comb ination ph pco2 po2 co2 hco3 Asia Nelson MD Work Phone: Start: 06-16-2022 PULSE OXIMETRY, CONTINUOUS Tresa Smallwood DO Work Phone: Start: 06-16-2022 Radiologic exam ches t single view Asia Nelson MD Work Phone: Start: 06-16-2022 Comprehensive metabo lic panel Asia Nelson MD Work Phone: Start: 06-16-2022 Manual differential performed [Presence] in Blood Asia Nelson MD Work Phone: Start: 06-15-2022 End: 06-15-2022 Bacteria identified in Blood by Culture Becky Dickerson MD Work Phone: Start: 06-15-2022 PULSE OXIMETRY, CONTINUOUS Tresa Smallwood DO Work Phone: Start: 06-15-2022 Urnls dip stick/tabl et reagent auto microscopy Brenda Blanco INSURANCE FOLLOW UP REPRESENTATIVE - ADVANCED REGISTERED NURSE Work Phone: Start: 06-15-2022 Radiologic exam ches t single view Asia Nelson MD Work Phone: Start: 06-15-2022 Chloride urine Brenda Blanco INSURANCE FOLLOW UP REPRESENTATIVE - ADVANCED REGISTERED NURSE Work Phone: Start: 06-15-2022 End: 06-15-2022 Smr prim src gram/giemsa stain bct fungi/cell Asia Nelson MD Work Phone: Start: 06-15-2022 PULSE OXIMETRY, CONTINUOUS Tresa Smallwood DO Work Phone: Start: 06-15-2022 Comprehensive metabo lic panel Asia Nelson MD Work Phone: Start: 06-15-2022 Drug assay valproic dipropylacetic acid total Becky Dickerson MD Work Phone: Start: 06-15-2022 Manual differential performed [Presence] in Blood Mani Edgar DO Work Phone: Start: 06-14-2022 PULSE OXIMETRY, CONTINUOUS Tresa Smallwood DO Work Phone: Start: 06-14-2022 PULSE OXIMETRY, CONTINUOUS Tresa Smallwood DO Work Phone: Start: 06-14-2022 C-reactive protein Tennille Dickerson MD Work Phone: Start: 06-14-2022 Comprehensive metabo lic panel Mani Edgar DO Work Phone: Start: 06-14-2022 Manual differential performed [Presence] in Blood Mani Edgar DO Work Phone: Start: 06-13-2022 PULSE OXIMETRY, CONTINUOUS Tresa Smallwood DO Work Phone: Start: 06-13-2022 Ct abdomen & pelvis w/contrast material Mani Edgar DO Work Phone: Start: 06-13-2022 PULSE OXIMETRY, CONTINUOUS Tresa Smallwood DO Work Phone: Start: 06-13-2022 Us abdominal real ti me w/image limited Mani Cortez MD Work Phone: Start: 06-13-2022 Comprehensive metabo lic panel Mani Edgar DO Work Phone: Start: 06-12-2022 PULSE OXIMETRY, CONTINUOUS Tresa Smallwood DO Work Phone: Start: 06-12-2022 Radiologic exam ches t single view Mani Edgar DO Work Phone: Start: 06-12-2022 Radex foot complete minimum 3 views Calli Roth MD Work Phone: Start: 06-12-2022 Comprehensive metabo lic panel Mani Edgar DO Work Phone: Start: 06-11-2022 PULSE OXIMETRY, CONTINUOUS Tresa Smallwood DO Work Phone: Start: 06-11-2022 Dup-scan xtr veins c omplete bilateral study Demetrius Fenton Work Phone: Start: 06-11-2022 Smr prim src gram/gi emsa stain bct fungi/cell Mani Edgar DO Work Phone: Start: 06-11-2022 PULSE OXIMETRY, CONTINUOUS Tresa Smallwood DO Work Phone: Start: 06-11-2022 Comprehensive metabo lic panel Mani Edgar DO Work Phone: Start: 06-10-2022 PULSE OXIMETRY, CONTINUOUS Tresa Smallwood DO Work Phone: Start: 06-10-2022 Assay of triglycerides Mani Edgar DO Work Phone: Start: 06-10-2022 Image-guide fluid co llxn drainage cath visc perq Ramesh Rasheed MD Work Phone: Start: 06-10-2022 AEROBIC AND ANAEROBI C CULTURE WITH STAIN Jus Barlow MD Work Phone: Start: 06-10-2022 Culture bacterial an y source anaerobic iso&id Jus Barlow MD Work Phone: Start: 06-10-2022 Urinalysis complete panel - Urine Mani Edgar DO Work Phone: Start: 06-10-2022 End: 06-10-2022 Urnls dip stick/tablet reagent auto microscopy Mani Edgar DO Work Phone: Start: 06-10-2022 Prothrombin time Wander Rasheed MD Work Phone: Start: 06-10-2022 Assay of lactate Stefan Edgar DO Work Phone: Start: 06-10-2022 Bacteria identified in Blood by Culture Mani Edgar DO Work Phone: Start: 06-10-2022 Ct abdomen & pelvis w/o contrast material Mani Edgar DO Work Phone: Start: 06-10-2022 Radiologic exam ches t single view Mani Edgar DO Work Phone: Start: 06-10-2022 Comprehensive metabo lic panel Mani Edgar DO Work Phone: Start: 06-09-2022 PULSE OXIMETRY, CONTINUOUS Tresa Smallwood DO Work Phone: Start: 06-09-2022 TTE w or w/o contr, cont ECG Matteo Rios MD Work Phone: Start: 06-09-2022 PULSE OXIMETRY, CONTINUOUS Tresa Smallwood DO Work Phone: Start: 06-09-2022 Ecg routine ecg w/le ast 12 lds trcg only w/o i&r Brenda Hagan Work Phone: Start: 06-09-2022 Basic metabolic pane l calcium total Brenda Hagan Work Phone: Start: 06-08-2022 PULSE OXIMETRY, CONTINUOUS Tresa Smallwood DO Work Phone: Start: 06-08-2022 Non-invas physiologi c std extremity art 2 level Bertha Rodrigez INSURANCE FOLLOW UP REPRESENTATIVE - ADVANCED REGISTERED NURSE Work Phone: Start: 06-08-2022 TTE w or wo fol wcon,Doppler Brenda Hagan Work Phone: Start: 06-08-2022 Assay of troponin quantitative Brenda Hagan Work Phone: Start: 06-08-2022 Assay of troponin quantitative Brenad Hagan Work Phone: Start: 06-08-2022 Chloride urine Brenda Hagan Work Phone: Start: 06-08-2022 Urnls dip stick/tabl et rgnt auto w/o microscopy Brenda Hagan Work Phone: Start: 06-08-2022 Basic metabolic pane l calcium total Brenda Hagan Work Phone: Start: 06-07-2022 HC SARS COVID-19 ANY TECHNIQUE Jennie Castelan PA-C Work Phone: Start: 06-07-2022 Radiologic exam ches t single view Jennie Castelan PA-C Work Phone: Start: 06-07-2022 Basic metabolic pane l calcium total Tresa Smallwood DO Work Phone: Start: 06-07-2022 Lipid panel Brenda Hagan Work Phone: Start: 06-07-2022 Ecg routine ecg w/le ast 12 lds i&r only Tresa Smallwood DO Work Phone: Start: 06-07-2022 PULSE OXIMETRY, CONTINUOUS Tresa Smallwood DO Work Phone: Start: 06-07-2022 Lipid 1996 panel - S kenzie or Plasma Brady Powell MD Work Phone: Start: 06-26-2020 Ct cervical spine w/ o contrast material Loki Hernandez Work Phone: Start: 06-26-2020 Ct head/brain w/o co ntrast material Loki Hernandez Work Phone: Start: 06-26-2020 LACERATION REPAIR Loki Hernandez Work Phone: Start: 02-19-2020 Ct head/brain w/o co ntrast material Melly Marinelli Work Phone: Start: 02-19-2020 Assay of troponin quantitative Melly Marinelli Work Phone: Start: 02-19-2020 Basic metabolic pane l calcium total Melly Marinelli Work Phone: Start: 02-19-2020 Blood count complete automated Melly Marinelli Work Phone: Start: 04-05-2019 Comprehensive metabo lic panel Jesús Ellis MD Work Phone: Investigation of transfusion reaction Microbial culture, routine Urine culture Plan of Treatment Date Care Activity Detail Author Start: 06-26-2030 DTaP/Tdap/Td vaccine (2 - Td or Tdap) DTaP/Tdap/Td vaccine (2 - Td or Tdap) [facility] Start: 06-26-2030 DTaP/Tdap/Td Vaccine s (2 - Td or Tdap) DTaP/Tdap/Td Vaccines (2 - Td or Tdap) [facility] Start: 06-26-2030 DTaP/Tdap/Td Vaccine s (3 - Td or Tdap) DTaP/Tdap/Td Vaccines (3 - Td or Tdap) [facility] Start: 06-26-2030 Urine microalbumin profile DTaP,Tdap,Td Vaccine (3 - Td or Tdap) [facility] Start: 06-26-2030 [facility] Start: 06-07-2027 Lipid panel [facility] Start: 02-17-2027 Diabetes Screening Diabetes Screenin [facility] Start: 10-28-2025 Diabetes Screening Diabetes Screenin g [facility] Start: 07-08-2025 BP Controlled (<130/80) BP Controlle d (<130/80) [facility] Start: 01-13-2025 End: 01-13-2025 Patient encounter procedure 01/13/2025 11:30 AM EDT Office Visit Neurology [address] [facility] [place] [address] Chhaya Saldana MD [address] [place] [address] [place] [address] 6 month follow up Neurology Comment on above: 6 month follow up Start: 06-15-2024 BP Controlled (<130/80) BP Controlle d (<130/80) [facility] Start: 04-09-2024 End: 04-09-2024 Patient encounter procedure 04/09/2024 2:15 PM EST Appointment [facility] [place] [place] [address] [place] [address] Danielle Arreola DPM [address] [place], [place] [id number] [facility] [place] Start: 03-20-2024 End: 03-20-2024 Patient encounter procedure 03/20/2024 10:30 AM EST Appointment [facility] [place] [address] Julissa Taylor, DO [address], [place] [id number] [facility] [place] Start: 03-13-2024 End: 03-13-2024 Patient encounter procedure 03/13/2024 2:30 PM EST App[facility]ment [facility] [place] [address] Julissa Taylor DO [address], [place] [id number] [facility] [place] Start: 03-06-2024 End: 03-06-2024 Patient encounter procedure 03/06/2024 10:30 AM EST Appointment [facility] [place] [address] Julissa Taylor, DO [address], [place] [id number] [facility] [place] Start: 02-28-2024 End: 02-28-2024 Patient encounter procedure 02/28/2024 10:30 AM EST Appointment [facility] [place] [address] [place] [address] Julissa Taylor, DO [address], [place] [address] [facility] [place] Start: 02-21-2024 End: 02-21-2024 Patient encounter procedure 02/21/2024 9:45 AM EST Appointment [facility] [place] [address] [place] [address] Julissa Taylor, DO [address], [place] [id number] [facility] [place] Start: 02-14-2024 End: 02-14-2024 Patient encounter procedure 02/14/2024 8:45 AM EST Appointment [facility] [place] [address] [place] [address] Julissa Taylor, DO [address], [place] [address] [facility] [place] Start: 02-07-2024 End: 02-07-2024 Patient encounter procedure 02/07/2024 8:45 AM EDT Appointment [facility] [place] [address] [place] [address] Julissa Taylor, DO [address], [place] [phone] [facility] [place] Start: 01-31-2024 End: 01-31-2024 Patient encounter procedure 01/31/2024 8:45 AM EDT Appointment [facility] [place] [address] [place] [address] Julissa Taylor, DO [address], [place] [phone] [facility] [place] Start: 01-24-2024 End: 01-24-2024 Patient encounter procedure 01/24/2024 10:00 AM EDT Appointment [facility] [place] [address] [place] [address] Julissa Taylor, DO [address] [facility] [place] [address] [facility] [place] Start: 01-17-2024 End: 01-17-2024 Patient encounter procedure 01/17/2024 9:45 AM EDT Appointment [facility] [place] [address] [place] [address] Julissa Taylor, DO [address], [place] [phone] [facility] [place] Start: 01-10-2024 End: 01-10-2024 Patient encounter procedure 01/10/2024 9:15 AM EDT Appointment [facility] [place] [address] [place] [address] Julissa Taylor, DO [address], [place] [id number] [facility] Start: 01-03-2024 End: 01-03-2024 Patient encounter procedure 01/03/2024 3:15 PM EDT Appointment [facility] [place] [address] [place] [address] Julissa Taylor, DO [address] [facility], [place] [phone] [facility] [place] Start: 12-27-2023 End: 12-27-2023 Patient encounter procedure 12/27/2023 2:45 PM EDT Appointment [facility] [place] [address] [place] [address] Julissa Taylor, DO [address], [place] [phone] [facility] [place] Start: 12-20-2023 End: 12-20-2023 Patient encounter procedure 12/20/2023 11:00 AM EDT Appointment [facility] [address] [place] [address] Julissa Taylor, DO [address], [place] [phone] [facility] Start: 12-13-2023 End: 12-13-2023 Patient encounter procedure 12/13/2023 11:00 AM EDT Appointment [facility] [address] [place] [address] Julissa Taylor, DO [address], [place] [phone] [facility] Start: 12-10-2023 COVID-19 Vaccine ( season) COVID-19 Vaccine ( season) [facility] Start: 12-10-2023 COVID-19 Vaccine ( season) COVID-19 Vaccine ( season) [facility] Start: 12-10-2023 Influenza vaccination [facility] Start: 12-06-2023 End: 12-06-2023 Patient encounter procedure 12/06/2023 10:30 AM EDT Appointment [facility] [address] [place] [address] Julissa Taylor, DO [address], [place] [phone] [facility] Start: 11-29-2023 End: 11-29-2023 Patient encounter procedure 11/29/2023 10:15 AM EDT Appointment [facility] [address] [place] [address] Julissa Taylor, DO [address] [facility], [place] [phone] [facility] Start: 11-17-2023 End: 11-17-2023 Patient encounter procedure 11/17/2023 10:30 AM EDT Appointment [facility] [address] [place] [address] [facility] Start: 11-15-2023 End: 11-15-2023 Patient encounter procedure 11/15/2023 10:45 AM EDT Appointment [facility] [address] [place] [address] Julissa Taylor, DO [address] [place], [place] [address] [facility] Start: 11-08-2023 End: 11-08-2023 Patient encounter procedure 11/08/2023 9:30 AM EDT Appointment [facility] [address] [place] [address] Julissa Taylor, DO [address] [facility] [place] [phone] [facility] Start: 11-01-2023 End: 11-01-2023 Patient encounter procedure 11/01/2023 8:30 AM EDT Appointment [facility] [address] [place] [address] Julissa Taylor, DO [address] [facility] [place] [phone] [facility] Start: 10-25-2023 End: 10-25-2023 Patient encounter procedure 10/25/2023 8:30 AM EDT Appointment [facility] [address] [place] [address] Julissa Taylor, DO [address] [facility] [place] [phone] [facility] Start: 10-18-2023 End: 10-18-2023 Patient encounter procedure 10/18/2023 10:15 AM EDT Appointment [facility] [address] [place] [address] Julissa Taylor, DO [address] [place], [place] [id number] [facility] Start: 10-11-2023 End: 10-11-2023 Patient encounter procedure 10/11/2023 8:45 AM EDT Appointment [facility] [address] [place] [address] Julissa Taylor, DO [address] [facility] [place] [address] [facility] Start: 10-04-2023 End: 10-04-2023 Patient encounter procedure 10/04/2023 1:45 PM EDT Appointment [facility] [address] [place] [address] Julissa Taylor, DO [address] [facility] [place] [address] [facility] Start: 09-27-2023 End: 09-27-2023 Patient encounter procedure 09/27/2023 1:15 PM EDT Appointment [facility] [address] [place] [address] Julissa Taylor, DO [address] [facility] [place] [id number] [facility] Start: 09-20-2023 End: 09-20-2023 Patient encounter procedure 09/20/2023 2:15 PM EDT Appointment [facility] [address] [place] [address] Julissa Taylor, DO [address] [place] [address] [facility] Start: 09-13-2023 End: 09-13-2023 Patient encounter procedure 09/13/2023 2:00 PM EDT Appointment [facility] [address] [place] [address] Julissa Taylor, DO [address] [facility] [place] [id number] [facility] HBO Start: 09-06-2023 End: 09-06-2023 Patient encounter procedure 09/06/2023 9:30 AM EDT Appointment [facility] [address] [place] [address] Julissa Taylor, DO [address] [place] [address] [facility] HBO Start: 08-30-2023 End: 08-30-2023 Patient encounter procedure 08/30/2023 9:30 AM EDT Appointment [facility] [address] [place] [address] Julissa Taylor, DO [address] [place] [address] [facility] HBO Start: 07-16-2023 Urine culture Urine Culture [facility] Start: 07-16-2023 [facility] Start: 06-23-2023 Diabetes mellitus screening [facility] Start: 06-19-2023 LIPID SCREEN LIPID SCREEN [facility] Start: 04-10-2023 Medicare Advantage Annual Wellness Visit Medicare Advantage Annual Wellness Visit [facility] Start: 01-22-2023 DIABETES SCREEN DIABETES SCREEN [facility] Start: 12-12-2022 Depression Monitoring Depression Mon itoring [facility] Start: 12-12-2022 Depresssion Monitoring Depresssion M onitoring [facility] Start: 12-09-2022 COVID-19 Vaccine ( season) COVID-19 Vaccine ( season) [facility] Start: 12-09-2022 Influenza vaccination [facility] Start: 2022 RSV Immunization age d 60 or older (1 - 1-dose 60+ series) RSV Immunization aged 60 or older (1 - 1-dose 60+ series) [facility] Start: 2022 RSV Immunization for Adults (1 - Risk 60-74 years 1-dose series) RSV Immunization for Adults (1 - Risk 60-74 years 1-dose series) [facility] Start: 2022 RSV Vaccine (1 - 1-d ose 60+ series) RSV Vaccine (1 - 1-dose 60+ series) [facility] Start: 11-16-2022 End: 11-16-2022 Patient encounter procedure [facility] Advanced Laproscopic Surgery Start: 11-02-2022 End: 11-02-2022 Admission to same day surgery center 11/02/2022 Surgery Procedural Brady Powell MD [address] [place], [place] [id number] LAPAROSCOPIC CHOLECYSTECTOMY, POSSIBLE OPEN [15016 (CPT )] [facility] MAIN OR Comment on above: LAPAROSCOPIC CHOLECY STECTOMY, POSSIBLE OPEN [69722 (CPT )] Start: 11-02-2022 End: 11-02-2022 Laparoscopy surg cholecystectomy [facility] Operating Room Start: 11-02-2022 Subsequent hospital visit by physician 11/02/2022 Hospital Encounter Procedural Brady Powell MD [address] [place], [place] [id number] [facility] MAIN OR Start: 11-01-2022 End: 11-01-2022 Admission to same day surgery center 11/01/2022 Surgery Procedural Brady Powell MD [address] [place], [place] [id number] LAPAROSCOPIC CHOLECYSTECTOMY, POSSIBLE OPEN [47163 (CPT )] [facility] MAIN OR Comment on above: LAPAROSCOPIC CHOLECY STECTOMY, POSSIBLE OPEN [32629 (CPT )] Start: 11-01-2022 End: 11-01-2022 Laparoscopy surg cholecystectomy LAPAROSCOPIC CHOLECYSTECTOMY Calculus of gallbladder without cholecystitis without obstruction Acute pancreatitis without necrosis or infection, unspecified Epigastric pain 11/01/2022 7:30 AM EDT [facility] Operating Room Start: 11-01-2022 Subsequent hospital visit by physician 11/01/2022 Hospital Encounter Procedural Brady Powell MD [address] [place] [address] [facility] MAIN OR Start: 10-28-2022 End: 10-28-2022 Admission to same day surgery center 10/28/2022 8:30 AM EDT - 10/28/2022 10:00 AM EDT Surgery [facility] MA[facility] OR [address] [facility] [place] [id number] Brady Powell MD [address] [place] [address] LAPAROSCOPIC CHOLECYSTECTOMY, POSSIBLE OPEN [50438 (CPT )] [facility] MA[facility] OR Comment on above: LAPAROSCOPIC CHOLECY STECTOMY, POSSIBLE OPEN [56633 (CPT )] Start: 10-28-2022 End: 10-28-2022 Anesthesia consultation 10/28/2022 8:30 AM EDT Anesthesia Event [facility] OR [address] [facility] [place] [phone] Jennie Chamorro, VAMP MAKER [address] [place] [address] [facility] OR Start: 10-28-2022 End: 10-28-2022 Laparoscopy surg cholecystectomy LAPAROSCOPIC CHOLECYSTECTOMY Calculus of gallbladder without cholecystitis without obstruction Acute pancreatitis without necrosis or infection, unspecified Epigastric pain 10/28/2022 8:30 AM EDT [facility] Operating Room Start: 10-28-2022 Subsequent hospital visit by physician 10/28/2022 6:30 AM EDT Hospital Encounter [facility] OR [address] [facility] [place] [phone] Brady Powell MD [address] [place] [address] [address] [place] [address] [facility] OR Start: 10-26-2022 End: 10-26-2022 Patient encounter procedure [facility] Start: 10-26-2022 End: 10-26-2022 Admission to establishment [facility] Pre-Admit Testing Start: 10-14-2022 End: 10-15-2023 Hepatic function 2000 panel - Serum or Plasma Hepatic function panel Lab Routine Preop testing Expected: 10/14/2022 (Approximate), Expires: 10/15/2023 [facility] [employer] Work Phone: Comment on above: Expected: 10/14/2022 (Approximate), Expires: 10/15/2023 Start: 07-29-2022 End: 07-30-2023 Amylase [Enzymatic activity/volume] in Serum or Plasma Amylase Lab Routine Calculus of gallbladder without cholecystitis without obstruction Peripancreatic abscess Expected: 07/29/2022 (Approximate), Expires: 07/30/2023 [facility] [employer] Work Phone: Comment on above: Expected: 07/29/2022 (Approximate), Expires: 07/30/2023 Start: 07-29-2022 End: 07-30-2023 Creatinine [Mass/volume] in Serum or Plasma Creatinine, Serum Lab Routine Calculus of gallbladder without cholecystitis without obstruction Peripancreatic abscess Expected: 07/29/2022 (Approximate), Expires: 07/30/2023 [facility] [employer] Comment on above: Expected: 07/29/2022 (Approximate), Expires: 07/30/2023 Start: 07-29-2022 End: 07-30-2023 CT Abdomen and Pelvis W contrast IV CT abdomen pelvis w contrast Imaging Routine Calculus of gallbladder without cholecystitis without obstruction Peripancreatic abscess Expected: 07/29/2022, Expires: 07/30/2023 [facility] [employer] Comment on above: Expected: 07/29/2022 , Expires: 07/30/2023 Start: 07-29-2022 End: 07-30-2023 Hepatic function 2000 panel - Serum or Plasma Hepatic function panel Lab Routine Calculus of gallbladder without cholecystitis without obstruction Peripancreatic abscess Expected: 07/29/2022 (Approximate), Expires: 07/30/2023 [facility] [employer] Comment on above: Expected: 07/29/2022 (Approximate), Expires: 07/30/2023 Start: 07-29-2022 End: 07-30-2023 Lipase [Enzymatic activity/volume] in Serum or Plasma Lipase Lab Routine Calculus of gallbladder without cholecystitis without obstruction Peripancreatic abscess Expected: 07/29/2022 (Approximate), Expires: 07/30/2023 [facility] [employer] Comment on above: Expected: 07/29/2022 (Approximate), Expires: 07/30/2023 Start: 07-29-2022 End: 07-29-2022 Patient encounter procedure 07/29/2022 Office Visit General Surgery Brady Powell MD [address] [place] [address] [address] [place] [address] [facility] Laproscopic [facility] Start: 12-09-2021 Influenza vaccination [facility] Start: 12-09-2021 [facility] Start: 05-24-2021 Annual Wellness Visi t (AWV) Annual Wellness Visit (AWV) [facility] Start: 02-18-2021 Creatinine measurement [facility] Start: 02-18-2021 Potassium [Moles/vol ume] in Serum or Plasma [facility] Start: 02-18-2021 Potassium monitoring Potassium monit oring [facility] Start: 02-18-2021 ZZPotassium ZZPotassium [facility] Start: 12-09-2020 Influenza vaccination Flu vaccine (# 1) [facility] Start: 04-05-2020 Creatinine measurement Creatinine mo nitoring [place], [place] Start: 04-05-2020 Potassium monitoring Potassium monit [place], [place] Start: 12-10-2019 Influenza vaccination [place], [place] Start: 12-09-2018 Influenza vaccination Flu vaccine (# 1) [facility] Work Phone: Start: 2017 PROSTATE CANCER SCREENING DISCUSSION PROSTATE CANCER SCREENING DISCUSSION [facility] Start: 2017 Prostate specific antigen measurement Prostate Cancer Screening Discussion [facility] Start: 07-11-2015 Pneumococcal Vaccine : 50+ Years (2 of 2 - PCV) Pneumococcal Vaccine: 50+ Years (2 of 2 - PCV) [facility] Start: 07-11-2015 Pneumococcal Vaccine : Pediatrics (0 to 5 Years) and At-Risk Patients (6 to 64 Years) (2 - PCV) Pneumococcal Vaccine: Pediatrics (0 to 5 Years) and At-Risk Patients (6 to 64 Years) (2 - PCV) [facility] Start: 07-11-2015 Pneumococcal Vaccine : Pediatrics (0 to 5 Years) and At-Risk Patients (6 to 64 Years) (2 of 2 - PCV) Pneumococcal Vaccine: Pediatrics (0 to 5 Years) and At-Risk Patients (6 to 64 Years) (2 of 2 - PCV) [facility] Start: 07-11-2015 [facility] Start: 2012 Screening for malign ant neoplasm of colon [facility] Start: 2012 Shingles Vaccine (1 of 2) Shingles Vaccine (1 of 2) [facility] Start: 2012 SHINGRIX VACCINE (1 of 2) SHINGRIX VACCINE (1 of 2) [facility] Start: 2012 Zoster Vaccines (1 of 2) Zoster Vacc yana (1 of 2) [facility] Start: 2012 [facility] Start: 12-05-2007 Screening for malign ant neoplasm of colon [facility] Start: 2002 Prostate specific antigen measurement Prostate Specific Antigen (PSA) Screening or Monitoring [facility] Start: 1981 Urine microalbumin profile DTAP,TDAP,TD (1 - Tdap) [facility] Start: 1980 ANNUAL PCP TEAM PROOF INSPECTOR ALIZA DISEASE VISIT ANNUAL PCP TEAM CHRONIC DISEASE VISIT [facility] Start: 1980 Anxiety Screening Anxiety Screening [facility] Start: 1980 BP CONTROLLED (<130/80) BP CONTROLLE D (<130/80) [facility] Start: 1980 HEPATITIS C SCREENING HEPATITIS C SC REENING [facility] Start: 1980 Hepatitis C screening [facility] Start: 1980 HIV SCREENING HIV SCREENING [facility] Start: 1980 HIV screening HIV Screening [facility] Start: 1978 COVID-19 Vaccine (1) COVID-19 Vaccin e (1) [facility] Work Phone: Start: 1977 HIV screening HIV screen [facility] Start: 1974 Depression Screen Depression Screen [facility] Start: 1974 Depresssion Monitoring Depresssion M onitoring [facility] Start: 1972 Lipid panel [facility] Start: 12-05-1967 COVID-19 Vaccine (1) COVID-19 Vaccin e (1) [facility] Start: 12-05-1963 MMR Vaccines (1 of 1 - Standard series) MMR Vaccines (1 of 1 - Standard series) [facility] Start: 12-05-1963 [facility] Start: 06-06-1963 COVID-19 Vaccine (#1) COVID-19 Vacci ne (#1) [facility] Start: 06-06-1963 [facility] Start: 1962 Annual Wellness Visi t (AWV) Annual Wellness Visit (AWV) [facility] Start: 1962 Hepatitis B Vaccines (1 of 3 - 3-dose series) Hepatitis B Vaccines (1 of 3 - 3-dose series) [facility] Start: 1962 Hepatitis C screening Hepatitis C sc reen [facility] Start: 1962 [facility] screening [facility] Start: 1962 Screening for malign ant neoplasm of colon [facility] Start: 1962 [facility] End: 06-22-2023 Aerobic and Anaerobic Culture with Stain [facility] [employer] Work Phone: Comment on above: Once (Lab) for 1 Occ urrences starting 06/22/2023 until 06/22/2023 Bacteria identified in Blood by Culture [facility] Bacteria identified in Unspecified specimen by Aerobe culture Culture, Aerobic Bacteria with Gram Stain Microbiology STAT 06/22/2023 11:11 PM EDT [facility] End: 06-22-2023 Bacteria identified in Unspecified specimen by Anaerobe culture [facility] Comment on above: Once for 1 Occurrenc es starting 06/22/2023 until 06/22/2023 End: 10-26-2022 CT Abdomen and Pelvis W contrast IV [facility] [employer] Work Phone: Comment on above: Once for 1 Occurrenc es starting 10/26/2022 until 10/26/2022 Dressing Order: Calc ium alginate (R leg); Weekly; Adaptic (multiple sizes); (Profore light) [employer] Work Phone: Comment on above: Ordered: 11/22/2023 Dressing Order: Calc ium alginate; 4x4 gauze, ABDs; Kerlex, Paper tape; Double Layer tubigrip Dressing Order: Calcium alginate; 4x4 gauze, ABDs; Kerlex, Paper tape; Double Layer tubigrip Wound Ostomy Routine Ordered: 11/08/2023 [facility] [employer] Work Phone: Comment on above: Ordered: 11/08/2023 Dressing Order: Calc ium alginate; Daily; 4x4 gauze ([place] Blue); Kerlex, Paper tape [facility] [employer] Work Phone: Comment on above: Ordered: 01/17/2024 Dressing Order: Calc ium alginate; Daily; 4x4 gauze, ABDs; Kerlex, Paper tape [facility] [employer] Work Phone: Comment on above: Ordered: 12/06/2023 Dressing Order: Calc ium alginate; Daily; 4x4 gauze, ABDs; Kerlex, Paper tape [employer] Work Phone: Comment on above: Ordered: 12/20/2023 Dressing Order: Calc ium alginate; Daily; ABDs; Kerlex, [facility] Phone: Comment on above: Ordered: 11/29/2023 Dressing Order: Calc ium alginate; Daily; ABDs; Kerlex, Paper tape [facility] Work Phone: Comment on above: Ordered: 12/13/2023 Dressing Order: Calc ium alginate; Daily; ABDs; Kerlex, Paper tape [facility] Work Phone: Comment on above: Ordered: 01/31/2024 Dressing Order: Calc ium alginate; Daily; ABDs; Kerlex, Paper tape Dressing Order: Calcium alginate; Daily; ABDs; Kerlex, Paper tape Wound Ostomy Routine 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) Peripheral venous insufficiency [I87.2] Ordered: 03/27/2024 [employer] Work Phone: Comment on above: Ordered: 03/27/2024 Dressing Order: Calc ium alginate; Weekly; (profore lite) [facility] Work Phone: Comment on above: Ordered: 11/15/2023 Dressing Order: Calc ium alginate; Weekly; 4x4 gauze; Multilayer compression wrap 3 layers [facility] Phone: Comment on above: Ordered: 03/06/2024 Dressing Order: Calc ium alginate; Weekly; Kerlex, Silk tape; Multilayer compression wrap 3 layers, Unna boot Dressing Order: Calcium alginate; Weekly; Kerlex, Silk tape; Multilayer compression wrap 3 layers, Unna boot Wound Ostomy Routine Ordered: 10/11/2023 [employer] Work Phone: Comment on above: Ordered: 10/11/2023 Dressing Order: Calc ium alginate; Weekly; Multilayer compression wrap 3 layers (Profore lite) [facility] Work Phone: Comment on above: Ordered: 01/10/2024 Dressing Order: Calc ium alginate; Weekly; Multilayer compression wrap 3 layers (Profore lite) [facility] [employer] Work Phone: Comment on above: Ordered: 01/24/2024 Dressing Order: Calc ium alginate; Weekly; Multilayer compression wrap 3 layers (profore lite) [facility] [employer] Work Phone: Comment on above: Ordered: 02/07/2024 Dressing Order: Calc ium alginate; Weekly; Multilayer compression wrap 3 layers (Profore lite) [facility] [employer] Work Phone: Comment on above: Ordered: 02/28/2024 Dressing Order: Christa agen Ag, Calcium Alginate AG; Weekly; Hydralock pads (multiple sizes); Kerlex, Silk tape; Multilayer compression wrap 3 layers (cover toes), Unna boot Dressing Order: Collagen Ag, Calcium Alginate AG; Weekly; Hydralock pads (multiple sizes); Kerlex, Silk tape; Multilayer compression wrap 3 layers (cover toes), Unna boot Wound Ostomy Routine Ordered: 08/23/2023 [facility] [employer] Work Phone: Comment on above: Ordered: 08/23/2023 Dressing Order: Christa agen Ag, Calcium alginate; 4x4 gauze; Kerlex, Silk tape; Multilayer compression wrap 3 layers, Unna boot Dressing Order: Collagen Ag, Calcium alginate; 4x4 gauze; Kerlex, Silk tape; Multilayer compression wrap 3 layers, Unna boot Wound Ostomy Routine Ordered: 09/28/2023 [facility] [employer] Work Phone: Comment on above: Ordered: 09/28/2023 Dressing Order: Christa agen Ag, Calcium alginate; Hydralock pads (multiple sizes); Kerlex; Unna boot, Multilayer compression wrap 3 layers Dressing Order: Collagen Ag, Calcium alginate; Hydralock pads (multiple sizes); Kerlex; Unna boot, Multilayer compression wrap 3 layers Wound Ostomy Routine Ordered: 09/06/2023 [facility] [employer] Work Phone: Comment on above: Ordered: 09/06/2023 Dressing Order: Christa agen Ag, Calcium alginate; Weekly; 4x4 gauze, Hydralock pads (multiple sizes); Kerlex, Silk tape; Unna boot, Multilayer compression wrap 3 layers Dressing Order: Collagen Ag, Calcium alginate; Weekly; 4x4 gauze, Hydralock pads (multiple sizes); Kerlex, Silk tape; Unna boot, Multilayer compression wrap 3 layers Wound Ostomy Routine Ordered: 09/13/2023 [facility]: Comment on above: Ordered: 09/13/2023 Dressing Order: Christa agen Ag, Calcium alginate; Weekly; 4x4 gauze; Kerlex, Silk tape; Multilayer compression wrap 3 layers, Unna boot Dressing Order: Collagen Ag, Calcium alginate; Weekly; 4x4 gauze; Kerlex, Silk tape; Multilayer compression wrap 3 layers, Unna boot Wound Ostomy Routine Ordered: 08/30/2023 [employer] Work Phone: Comment on above: Ordered: 08/30/2023 Dressing Order: Christa agen Ag, Calcium alginate; Weekly; 4x4 gauze; Kerlex; Unna boot, Multilayer compression wrap 3 layers Dressing Order: Collagen Ag, Calcium alginate; Weekly; 4x4 gauze; Kerlex;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 (transportation, discharge planning) 15 [] Additional Assistance / Altered Mentation 15 [] Support Surface Assessment (bed, cushion, seat) 15 [] Interventions Wound Cleansing/Measurement Simple Wound Cleansing - one wound 5 [x] Complex Wound Cleansing - multiple wounds (# of: 0) multiply by 5 to get score 0 [] Wound Imaging (photographs - any number of wounds) 5 [x] Wound Tracing (instead of photographs) 5 [] Simple Wound Measurements - one wound 5 [x] Complex Wound Measuremnts - multiple wounds (#of: 0) multiply by 5 to get score 0 [] Wound Dressings Small Wound Dressing - one or multiple wounds (# of: 0 ) multiply by 10 to get score 0 [] Medium Wound Dressing - one or multiple wounds (# of: 0 ) multiply by 15 to get score 0 [] Large Wound Dressing - one or multiple wounds (# of: 0) multiply by 20 to get score 0 [] Application of Medications - topical 5 [] Application of Medication - injection 10 [] Miscellaneous External Ear Exam Specimen Collection (culture, biopsies, blood, body fluids, etc) 5 [] Specimen/Culture sent or taken to lab for analysis 5 [] Patient Transfer (multiple staff/Darrin lift) 10 [] Simple Staple/Suture Removal (25 or less) 5 [] Complex Staple/Suture Removal (26 or more) 10 [] Hypo/Hyperglycemic Management 10 [] Ankle/Brachial Index (JULES) 15 [] Vital Signs 5 [x] Total Points - Use to Determine Level of Clinic Visit 85 Points [place]: Level 1 (1-35 Points) Level 2 (40-75 Points) Level 3 (80-115 Points) Level 4 (120-155 Points) Level 5 (160 or more Points) documented in this encounter [facility] 04-09-2024 Hospital Discharge instructions Giuliana Radford RN - 04/09/2024 2:15 PM EST Ordered treatment completed and patient is healed. Patient discharged without any issues. All questions answered. Call the clinic if your wound reopens or a new wound appears at [phone] documented in this encounter [facility] 03-27-2024 History of Present illness Narrative Images from the original note were not included. [facility] Wound Care Progress Note CHIEF COMPLAINT: Wound Care HISTORY OF PRESENT ILLNESS: The patient is a 63 y.o. male arrives for recheck wounds of R toes. Feels toes continue to slowly improve. Leg wound improving also. 03/06/24: LLE improving. RLE with scratch vázquez by patient and increase swelling. Right toe ulcer improving. 03/20/24: Feels wounds are improving. 03/27/24: Feels wounds are nearly gone. REVIEW OF SYSTEMS: Review of Systems Constitutional: Negative. Negative for chills, fatigue and fever. See HPI Respiratory: Negative. Cardiovascular: Negative. Skin: Positive for wound. Negative for color change (from typical for patient) and rash. PHYSICAL EXAM: BP 116/75 Pulse 54 Temp 36.6 C (97.9 F) Resp 18 Physical Exam Vitals reviewed. Constitutional: General: He is not in acute distress. Appearance: Normal appearance. He is not ill-appearing or toxic-appearing. HENT: Ears: Comments: Hearing to conversational voice is normal. Pulmonary: Effort: Pulmonary effort is normal. Breath sounds: No wheezing (No audible wheeze). Musculoskeletal: Right lower leg: Edema present. Skin: General: Skin is warm and dry. Comments: Wounds of toes with less maceration. Slowly improving. Very nearly resolved. Loose slough easily debrided clear with dry gauze. L lower leg wound is resolved. No evidence of cellulitis. See photos and measurements. Neurological: Mental Status: He is alert and oriented to person, place, and time. Psychiatric: Thought Content: Thought content normal. Wound/Incision 08/23/23 Lymphedema Toe - third Right;Dorsal (Active) Wound Image 03/27/24 151 Site Assessment Dry;Intact 03/27/24 1516 Carine-Wound Assessment Dry 03/27/24 1516 Wound Length (cm) 0 cm 03/27/24 1516 Wound Width (cm) 0 cm 03/27/24 1516 Wound Surface Area (cm^2) 0 cm^2 03/27/24 1516 Wound Depth (cm) 0 cm 03/27/24 1516 Wound Volume (cm^3) 0 cm^3 03/27/24 1516 Wound Healing % 100 03/27/24 1516 Drainage Description Serosanguineous 03/27/24 1516 Odor None 03/27/24 1516 Drainage Amount Scant 03/27/24 1516 Treatments Cleansed 03/27/24 1516 Primary Dressing Calcium alginate 03/20/24 1100 Secondary Dressing 4x4 gauze 03/13/24 1416 Secured with Conforming kerlex;Surgical tape 03/20/24 1100 Compression Multilayer compression wrap - 3 layers 03/20/24 1100 Periwound Dressing Moisturizing lotion 02/28/24 1000 Dressing Status New dressing;Clean, dry & intact 03/20/24 1100 1. 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 Peripheral venous insufficiency [I87.2] Patient educated, reassured Alginate to right toes Tubigrips or surepress to both lower legs Encourage elevate BLE Reviewed s/s infection Recheck 2 wks, sooner prn Patient agrees with plan. Please see attached Discharge Instructions Assessments Nursing Assessment/Reassessment Score (check box all that apply) Reassessment of Co-morbidities (includes updates in patient status) 10 [x] Wound and Skin Assessment/Reassessment 5 [x] Reassessment of Adherence to Treatment Plan Simple Wound Assessment / Reassessment - one wound 5 [x] Complex Wound Assessment - multiple wounds (# of: 0 ) multiply by 5 to get score 0 [] Dermatologic / Skin Assessment (not related to wound area) 10 [x] Focused Assessment Circumferential Edema Measurements - multi extremities (# of: 0) multiply by 5 to get score 0 [] Nutritional Assessment/Counseling/Intervention 10 [] Lower Extremity Assessment (monofilament, tuning fork, pulses) 5 [] Peripheral Arterial Disease Assessment (using hand-held doppler) 10 [] Ostomy and/or Continence Assessment & Care Incontinence Assessment and Management 10 [] Ostomy Care Assessment and Management (repouching, etc) 20 [] Process Coordination of Care Simple Patient/Family Education for ongoing care 15 [x] Complex (extensive) Patient/Family Education for ongoing of care 20 [] Staff obtains Consent, Records, Test Results/Process Orders 10 [] Staff telephones [facility], Nursing Homes/Clarify Orders 10 [x] Routine Transfer to another Facility (non-emergent condition) 10 [] Routine Hospital Admission (non-emergent condition) 10 [] New Admissions/Insurance Auth/Ordering NPWT, skin substitute, etc. 15 [] Emergency Hospital Admission (emergent condition) 20 [] Simple Discharge Coordination 10 [] Complex (extensive) Discharge Coordination 15 [] Special Needs Pediatric / Minor Patient Management 10 [] Isolation Patient Management 10 [] Hearing/Language/Visual Special Needs 15 [] Assessment of Community Assistance (transportation, discharge planning) 15 [] Additional Assistance / Altered Mentation 15 [] Support Surface Assessment (bed, cushion, seat) 15 [] Interventions Wound Cleansing/Measurement Simple Wound Cleansing - one wound 5 [x] Complex Wound Cleansing - multiple wounds (# of: 0) multiply by 5 to get score 0 [] Wound Imaging (photographs - any number of wounds) 5 [x] Wound Tracing (instead of photographs) 5 [] Simple Wound Measurements - one wound 5 [x] Complex Wound Measuremnts - multiple wounds (#of: 0) multiply by 5 to get score 0 [] Wound Dressings Small Wound Dressing - one or multiple wounds (# of: 1 ) multiply by 10 to get score 10 [x] Medium Wound Dressing - one or multiple wounds (# of: 0 ) multiply by 15 to get score 0 [] Large Wound Dressing - one or multiple wounds (# of: 0) multiply by 20 to get score 0 [] Application of Medications - topical 5 [] Application of Medication - injection 10 [] Miscellaneous External Ear Exam Specimen Collection (culture, biopsies, blood, body fluids, etc) 5 [] Specimen/Culture sent or taken to lab for analysis 5 [] Patient Transfer (multiple staff/Darrin lift) 10 [] Simple Staple/Suture Removal (25 or less) 5 [] Complex Staple/Suture Removal (26 or more) 10 [] Hypo/Hyperglycemic Management 10 [] Ankle/Brachial Index (JULES) 15 [] Vital Signs 5 [x] Total Points - Use to Determine Level of Clinic Visit 85 Points Castro: Level 1 (1-35 Points) Level 2 (40-75 Points) Level 3 (80-115 Points) Level 4 (120-155 Points) Level 5 (160 or more Points) documented in this encounter [facility] [employer] 03-27-2024 History of Present illness Narrative Images from the original note were not included. [facility] Wound Care Progress Note CHIEF COMPLAINT: Wound Care HISTORY OF PRESENT ILLNESS: The patient is a 63 y.o. male arrives for recheck wounds of R toes. Feels toes continue to slowly improve. Leg wound improving also. 03/06/24: LLE improving. RLE with scratch vázquez by patient and increase swelling. Right toe ulcer improving. 03/20/24: Feels wounds are improving. 03/27/24: Feels wounds are nearly gone. REVIEW OF SYSTEMS: Review of Systems Constitutional: Negative. Negative for chills, fatigue and fever. See HPI Respiratory: Negative. Cardiovascular: Negative. Skin: Positive for wound. Negative for color change (from typical for patient) and rash. PHYSICAL EXAM: BP 116/75 Pulse 54 Temp 36.6 C (97.9 F) Resp 18 Physical Exam Vitals reviewed. Constitutional: General: He is not in acute distress. Appearance: Normal appearance. He is not ill-appearing or toxic-appearing. HENT: Ears: Comments: Hearing to conversational voice is normal. Pulmonary: Effort: Pulmonary effort is normal. Breath sounds: No wheezing (No audible wheeze). Musculoskeletal: Right lower leg: Edema present. Skin: General: Skin is warm and dry. Comments: Wounds of toes with less maceration. Slowly improving. Very nearly resolved. Loose slough easily debrided clear with dry gauze. L lower leg wound is resolved. No evidence of cellulitis. See photos and measurements. Neurological: Mental Status: He is alert and oriented to person, place, and time. Psychiatric: Thought Content: Thought content normal. Wound/Incision 08/23/23 Lymphedema Toe - third Right;Dorsal (Active) Wound Image 03/27/24 1516 Site Assessment Dry;Intact 03/27/24 151 Carine-Wound Assessment Dry 03/27/24 1516 Wound Length (cm) 0 cm 03/27/24 151 Wound Width (cm) 0 cm 03/27/24 1516 Wound Surface Area (cm^2) 0 cm^2 03/27/24 1516 Wound Depth (cm) 0 cm 03/27/24 151 Wound Volume (cm^3) 0 cm^3 03/27/24 151 Wound Healing % 100 03/27/24 151 Drainage Description Serosanguineous 03/27/24 151 Odor None 03/27/24 1516 Drainage Amount Scant 03/27/24 1516 Treatments Cleansed 03/27/24 1516 Primary Dressing Calcium alginate 03/20/24 1100 Secondary Dressing 4x4 gauze 03/13/24 1416 Secured with Conforming kerlex;Surgical tape 03/20/24 1100 Compression Multilayer compression wrap - 3 layers 03/20/24 1100 Periwound Dressing Moisturizing lotion 02/28/24 1000 Dressing Status New dressing;Clean, dry & intact 03/20/24 1100 1. 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 Peripheral venous insufficiency [I87.2] Patient educated, reassured Alginate to right toes Tubigrips or surepress to both lower legs Encourage elevate BLE Reviewed s/s infection Recheck 2 wks, sooner prn Patient agrees with plan. Please see attached Discharge Instructions Assessments Nursing Assessment/Reassessment Score (check box all that apply) Reassessment of Co-morbidities (includes updates in patient status) 10 [x] Wound and Skin Assessment/Reassessment 5 [x] Reassessment of Adherence to Treatment Plan Simple Wound Assessment / Reassessment - one wound 5 [x] Complex Wound Assessment - multiple wounds (# of: 0 ) multiply by 5 to get score 0 [] Dermatologic / Skin Assessment (not related to wound area) 10 [x] Focused Assessment Circumferential Edema Measurements - multi extremities (# of: 0) multiply by 5 to get score 0 [] Nutritional Assessment/Counseling/Intervention 10 [] Lower Extremity Assessment (monofilament, tuning fork, pulses) 5 [] Peripheral Arterial Disease Assessment (using hand-held doppler) 10 [] Ostomy and/or Continence Assessment & Care Incontinence Assessment and Management 10 [] Ostomy Care Assessment and Management (repouching, etc) 20 [] Process Coordination of Care Simple Patient/Family Education for ongoing care 15 [x] Complex (extensive) Patient/Family Education for ongoing of care 20 [] Staff obtains Consent, Records, Test Results/Process Orders 10 [] Staff telephones [facility], Nursing Homes/Clarify Orders 10 [x] Routine Transfer to another Facility (non-emergent condition) 10 [] Routine Hospital Admission (non-emergent condition) 10 [] New Admissions/Insurance Auth/Ordering NPWT, skin substitute, etc. 15 [] Emergency Hospital Admission (emergent condition) 20 [] Simple Discharge Coordination 10 [] Complex (extensive) Discharge Coordination 15 [] Special Needs Pediatric / Minor Patient Management 10 [] Isolation Patient Management 10 [] Hearing/Language/Visual Special Needs 15 [] Assessment of Community Assistance (transportation, discharge planning) 15 [] Additional Assistance / Altered Mentation 15 [] Support Surface Assessment (bed, cushion, seat) 15 [] Interventions Wound Cleansing/Measurement Simple Wound Cleansing - one wound 5 [x] Complex Wound Cleansing - multiple wounds (# of: 0) multiply by 5 to get score 0 [] Wound Imaging (photographs - any number of wounds) 5 [x] Wound Tracing (instead of photographs) 5 [] Simple Wound Measurements - one wound 5 [x] Complex Wound Measuremnts - multiple wounds (#of: 0) multiply by 5 to get score 0 [] Wound Dressings Small Wound Dressing - one or multiple wounds (# of: 1 ) multiply by 10 to get score 10 [x] Medium Wound Dressing - one or multiple wounds (# of: 0 ) multiply by 15 to get score 0 [] Large Wound Dressing - one or multiple wounds (# of: 0) multiply by 20 to get score 0 [] Application of Medications - topical 5 [] Application of Medication - injection 10 [] Miscellaneous External Ear Exam Specimen Collection (culture, biopsies, blood, body fluids, etc) 5 [] Specimen/Culture sent or taken to lab for analysis 5 [] Patient Transfer (multiple staff/Darrin lift) 10 [] Simple Staple/Suture Removal (25 or less) 5 [] Complex Staple/Suture Removal (26 or more) 10 [] Hypo/Hyperglycemic Management 10 [] Ankle/Brachial Index (JULES) 15 [] Vital Signs 5 [x] Total Points - Use to Determine Level of Clinic Visit 85 Points Castro: Level 1 (1-35 Points) Level 2 (40-75 Points) Level 3 (80-115 Points) Level 4 (120-155 Points) Level 5 (160 or more Points) documented in this encounter [facility] 03-27-2024 Hospital Discharge instructions Giuliana Radford RN - 03/27/2024 3:00 PM EST Return Appointment in: 1 week - Should you experience any significant changes in your wound(s) or have any questions regarding your home care instructions please contact the wound center at [phone] If after regular business hours, please call your family doctor or local emergency room. If resident is unable to make next weeks appointment, profore lite wraps need to be removed Edema Control: Elevate legs to the level of the heart or above for 30 minutes daily and/or when sitting Additional Orders/Instructions: Follow diet per physicians instructions - such as increasing protein intake to promote wound healing. Please begin including a protein supplement/shake to patient's diet to help with wound healing Nursing Care Facility: [facility] Bilateral legs resolved-Facility closed week Facility opened on April 08 Wound Treatment to R 2nd toe- Daily Cleanse wound with mild soap and water and pat dry. Apply Calcium Alginate to wound bed Apply dry dressing to cover the wound and secure with tape. OK to shower if wound dressing covered Apply Barrier Cream to bilateral buttocks and sacral area daily and PRN. documented in this encounter [facility] 03-27-2024 Hospital Discharge instructions Giuliana Radford RN - 03/27/2024 3:00 PM EST Return Appointment in: 1 week - Should you experience any significant changes in your wound(s) or have any questions regarding your home care instructions please contact the wound center at [phone] If after regular business hours, please call your family doctor or local emergency room. If resident is unable to make next weeks appointment, profore lite wraps need to be removed Edema Control: Elevate legs to the level of the heart or above for 30 minutes daily and/or when sitting Additional Orders/Instructions: Follow diet per physicians instructions - such as increasing protein intake to promote wound healing. Please begin including a protein supplement/shake to patient's diet to help with wound healing Nursing Care Facility: [facility] Bilateral legs resolved-Facility closed week Facility opened on April 08 Wound Treatment to R 2nd toe- Daily Cleanse wound with mild soap and water and pat dry. Apply Calcium Alginate to wound bed Apply dry dressing to cover the wound and secure with tape. OK to shower if wound dressing covered Apply Barrier Cream to bilateral buttocks and sacral area daily and PRN. documented in this encounter [facility] 03-27-2024 Miscellaneous Notes Encounter addended by: Marycarmen Corona RN on: 03/28/2024 9:26 AM Actions taken: LDA properties accepted documented in this encounter [facility] 03-27-2024 Note Encounter addended b y: Marycarmen Corona RN on: 03/28/2024 9:26 AM Actions taken: LDA properties accepted [facility] 03-27-2024 Note [facility] Wound Care Progress Note CHIEF COMPLAINT: Wound Care HISTORY OF PRESENT ILLNESS: The patient is a 63 y.o. male arrives for recheck wounds of R toes. Feels toes continue to slowly improve. Leg wound improving also. 03/06/24: LLE improving. RLE with scratch vázquez by patient and increase swelling. Right toe ulcer improving. 03/20/24: Feels wounds are improving. 03/27/24: Feels wounds are nearly gone. REVIEW OF SYSTEMS: Review of Systems Constitutional: Negative. Negative for chills, fatigue and fever. See HPI Respiratory: Negative. Cardiovascular: Negative. Skin: Positive for wound. Negative for color change (from typical for patient) and rash. PHYSICAL EXAM: BP 116/75 Pulse 54 Temp 36.6 ?C (97.9 ?F) Resp 18 Physical Exam Vitals reviewed. Constitutional: General: He is not in acute distress. Appearance: Normal appearance. He is not ill-appearing or toxic-appearing. HENT: Ears: Comments: Hearing to conversational voice is normal. Pulmonary: Effort: Pulmonary effort is normal. Breath sounds: No wheezing (No audible wheeze). Musculoskeletal: Right lower leg: Edema present. Skin: General: Skin is warm and dry. Comments: Wounds of toes with less maceration. Slowly improving. Very nearly resolved. Loose slough easily debrided clear with dry gauze. L lower leg wound is resolved. No evidence of cellulitis. See photos and measurements. Neurological: Mental Status: He is alert and oriented to person, place, and time. Psychiatric: Thought Content: Thought content normal. Wound/Incision 08/23/23 Lymphedema Toe - third Right;Dorsal (Active) Wound Image 03/27/24 1516 Site Assessment Dry;Intact 03/27/24 1516 Carine-Wound Assessment Dry 03/27/24 1516 Wound Length (cm) 0 cm 03/27/24 1516 Wound Width (cm) 0 cm 03/27/24 1516 Wound Surface Area (cm^2) 0 cm^2 03/27/24 1516 Wound Depth (cm) 0 cm 03/27/24 1516 Wound Volume (cm^3) 0 cm^3 03/27/24 1516 Wound Healing % 100 03/27/24 1516 Drainage Description Serosanguineous 03/27/24 1516 Odor None 03/27/24 1516 Drainage Amount Scant 03/27/24 1516 Treatments Cleansed 03/27/24 1516 Primary Dressing Calcium alginate 03/20/24 1100 Secondary Dressing 4x4 gauze 03/13/24 1416 Secured with Conforming kerlex;Surgical tape 03/20/24 1100 Compression Multilayer compression wrap - 3 layers 03/20/24 1100 Periwound Dressing Moisturizing lotion 02/28/24 1000 Dressing Status New dressing;Clean, dry & intact 03/20/24 1100 1. 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 Peripheral venous insufficiency [I87.2] Patient educated, reassured Alginate to right toes Tubigrips or surepress to both lower legs Encourage elevate BLE Reviewed s/s infection Recheck 2 wks, sooner prn Patient agrees with plan. Please see attached Discharge Instructions [facility] 03-20-2024 Note [facility] Wound Care Progress Note CHIEF COMPLAINT: Wound Care HISTORY OF PRESENT ILLNESS: The patient is a 63 y.o. male arrives for recheck wounds of R toes. Feels toes continue to slowly improve. Leg wound improving also. 03/06/24: LLE improving. RLE with scratch vázquez by patient and increase swelling. Right toe ulcer improving. 03/20/24: Feels wounds are improving. REVIEW OF SYSTEMS: Review of Systems Constitutional: Negative. Negative for chills, fatigue and fever. See HPI Respiratory: Negative. Cardiovascular: Negative. Skin: Positive for wound. Negative for color change (from typical for patient) and rash. PHYSICAL EXAM: BP 92/67 Pulse 62 Temp 36.3 ?C (97.3 ?F) Resp 24 Comment: Pulse ox- 93% on oxygen Physical Exam Vitals reviewed. Constitutional: General: He is not in acute distress. Appearance: Normal appearance. He is not ill-appearing or toxic-appearing. HENT: Ears: Comments: Hearing to conversational voice is normal. Pulmonary: Effort: Pulmonary effort is normal. Breath sounds: No wheezing (No audible wheeze). Musculoskeletal: Right lower leg: Edema present. Skin: General: Skin is warm and dry. Comments: Wounds of toes with less maceration. Slowly improving. Loose slough easily debrided clear with dry gauze. L lower leg nearing resolution. No evidence of cellulitis. See photos and measurements. Neurological: Mental Status: He is alert and oriented to person, place, and time. Psychiatric: Thought Content: Thought content normal. Wound/Incision 08/23/23 Lymphedema Toe - third Right;Dorsal (Active) Wound Image 03/20/24 1030 Site Assessment Edema;Granulation;Sloughing 03/20/24 1030 Carine-Wound Assessment Calloused;Moist 03/20/24 1030 Wound Length (cm) 0.1 cm 03/20/24 1030 Wound Width (cm) 0.1 cm 03/20/24 1030 Wound Surface Area (cm^2) 0.01 cm^2 03/20/24 1030 Wound Depth (cm) 0.1 cm 03/20/24 1030 Wound Volume (cm^3) 0.001 cm^3 03/20/24 1030 Wound Healing % 99 03/20/24 1030 Drainage Description Serosanguineous 03/20/24 1030 Odor None 03/20/24 1030 Drainage Amount Scant 03/20/24 1030 Treatments Cleansed 03/20/24 1030 Primary Dressing Calcium alginate 03/20/24 1100 Secondary Dressing 4x4 gauze 03/13/24 1416 Secured with Conforming kerlex;Surgical tape 03/20/24 1100 Compression Multilayer compression wrap - 3 layers 03/20/24 1100 Periwound Dressing Moisturizing lotion 02/28/24 1000 Dressing Status New dressing;Clean, dry & intact 03/20/24 1100 Wound/Incision 02/21/24 Venous Ulcer Pretibial Left (Active) Wound Image 03/20/24 1027 Site Assessment Intact 03/20/24 1027 Carine-Wound Assessment [place];Edematous;Intact 03/20/24 1027 Wound Length (cm) 0.9 cm 03/20/24 1027 Wound Width (cm) 0.8 cm 03/20/24 1027 Wound Surface Area (cm^2) 0.72 cm^2 03/20/24 1027 Wound Depth (cm) 0.1 cm 03/20/24 1027 Wound Volume (cm^3) 0.072 cm^3 03/20/24 1027 Wound Healing % 86 03/20/24 1027 Drainage Description Unable to assess;Serosanguineous 03/20/24 1027 Odor None 03/20/24 1027 Drainage Amount Moderate 03/20/24 1027 Treatments Cleansed 03/20/24 1027 Primary Dressing Calcium alginate 03/20/24 1100 Secondary Dressing 4x4 gauze 02/28/24 1000 Secured with Kerlex;Silk tape 02/28/24 1000 Compression Multilayer compression wrap - 3 layers 03/20/24 1100 Periwound Dressing Moisturizing lotion 03/13/24 1358 Dressing Status New dressing;Clean, dry & intact 03/20/24 1100 1. 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 Peripheral venous insufficiency [I87.2] 3. Chronic venous hypertension (idiopathic) with ulcer of left lower extremity (CODE) (HCC) [I87.312] Patient educated, reassured Alginate to right toes and L leg Profore lite to BLE Encourage elevate BLE Reviewed s/s infection Recheck one wk, sooner prn Patient agrees with plan. Please see attached Discharge Instructions [facility] 03-13-2024 Hospital Discharge instructions Giuliana Radford RN - 03/13/2024 2:30 PM EST Return Appointment in: 1 week - Should you experience any significant changes in your wound(s) or have any questions regarding your home care instructions please contact the wound center at [phone] If after regular business hours, please call your family doctor or local emergency room. Edema Control: Elevate legs to the level of the heart or above for 30 minutes daily and/or when sitting Additional Orders/Instructions: Follow diet per physicians instructions - such as increasing protein intake to promote wound healing. Please begin including a protein supplement/shake to patient's diet to help with wound healing Nursing Care Facility: [facility] Wound Treatment to R toes- Daily Cleanse wound with mild soap and water and pat dry. Apply Calcium Alginate to wound bed Apply dry dressing to cover the wound and secure with tape. Treatment to RLE: Weekly (for prevention) Cleanse wound with mild soap and water and pat dry. Apply moisturizing lotion Apply Profore lite Do not get wet. Treatment to LLE: weekly Cleanse wound with mild soap and water and pat dry. Apply Calcium Alginate to wound bed Apply Profore lite OK to shower if wound dressing covered Apply Barrier Cream to bilateral buttocks and sacral area daily and PRN. documented in this encounter [facility] 03-13-2024 Note [facility] Wound Care Progress Note CHIEF COMPLAINT: Wound Care HISTORY OF PRESENT ILLNESS: The patient is a 63 y.o. male arrives for recheck wounds of R toes. Feels toes continue to slowly improve. Leg wound improving also. 03/06/24: LLE improving. RLE with scratch vázquez by patient and increase swelling. Right toe ulcer improving. 03/13/24: Feels wounds are improving. REVIEW OF SYSTEMS: Review of Systems Constitutional: Negative. Negative for chills, fatigue and fever. See HPI Respiratory: Negative. Cardiovascular: Negative. Skin: Positive for wound. Negative for color change (from typical for patient) and rash. PHYSICAL EXAM: BP 135/77 (BP Location: Left arm, Patient Position: Sitting) Pulse 75 Temp 36.6 ?C (97.8 ?F) Resp 20 Physical Exam Vitals reviewed. Constitutional: General: He is not in acute distress. Appearance: Normal appearance. He is not ill-appearing or toxic-appearing. HENT: Ears: Comments: Hearing to conversational voice is normal. Pulmonary: Effort: Pulmonary effort is normal. Breath sounds: No wheezing (No audible wheeze). Musculoskeletal: Right lower leg: Edema present. Skin: General: Skin is warm and dry. Comments: Wounds of toes with less maceration. Slowly improving. Loose slough easily debrided clear with dry gauze. L lower leg nearing resolution. No evidence of cellulitis. See photos and measurements. Neurological: Mental Status: He is alert and oriented to person, place, and time. Psychiatric: Thought Content: Thought content normal. Wound/Incision 08/23/23 Lymphedema Toe - third Right;Dorsal (Active) Wound Image 03/13/24 141 Site Assessment Dry 03/13/24 141 Carine-Wound Assessment Dry;Intact 03/13/24 141 Wound Length (cm) 0.1 cm 03/13/24 141 Wound Width (cm) 0.1 cm 03/13/24 141 Wound Surface Area (cm^2) 0.01 cm^2 03/13/24 1416 Wound Depth (cm) 0.1 cm 03/13/24 1416 Wound Volume (cm^3) 0.001 cm^3 03/13/24 1416 Wound Healing % 99 03/13/24 141 Drainage Description Serosanguineous 03/13/24 141 Odor None 03/13/24 141 Drainage Amount Scant 03/13/24 1416 Treatments Cleansed 03/13/24 1416 Primary Dressing Calcium alginate 03/13/24 141 Secondary Dressing 4x4 gauze 03/13/24 141 Secured with Kerlex;Paper tape 03/13/24 141 Compression Surepress 02/28/24 1000 Periwound Dressing Moisturizing lotion 02/28/24 1000 Dressing Status New dressing;Clean, dry & intact 03/13/24 1416 Wound/Incision 02/21/24 Venous Ulcer Pretibial Left (Active) Wound Image 03/13/24 1358 Site Assessment Bleeding 03/13/24 1358 Carine-Wound Assessment Dry 03/13/24 1358 Wound Length (cm) 1 cm 03/13/24 1358 Wound Width (cm) 0.9 cm 03/13/24 1358 Wound Surface Area (cm^2) 0.9 cm^2 03/13/24 1358 Wound Depth (cm) 0.1 cm 03/13/24 1358 Wound Volume (cm^3) 0.09 cm^3 03/13/24 1358 Wound Healing % 83 03/13/24 1358 Drainage Description Serosanguineous 03/13/24 1358 Odor None 03/13/24 1358 Drainage Amount Small 03/13/24 1358 Treatments Cleansed 03/13/24 1358 Primary Dressing Calcium alginate 03/13/24 1358 Secondary Dressing 4x4 gauze 02/28/24 1000 Secured with Kerlex;Silk tape 02/28/24 1000 Compression Multilayer compression wrap - 3 layers 03/13/24 1358 Periwound Dressing Moisturizing lotion 03/13/24 1358 Dressing Status New dressing;Clean, dry & intact 02/21/24 1000 Non-pressure chronic ulcer of other 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 Please see attached Discharge Instructions [facility] 03-06-2024 Hospital Discharge instructions Giuliana Radford RN - 03/06/2024 10:30 AM EST Return Appointment in: 1 week - Should you experience any significant changes in your wound(s) or have any questions regarding your home care instructions please contact the wound center at [phone] If after regular business hours, please call your family doctor or local emergency room. Edema Control: Elevate legs to the level of the heart or above for 30 minutes daily and/or when sitting Additional Orders/Instructions: Follow diet per physicians instructions - such as increasing protein intake to promote wound healing. Please begin including a protein supplement/shake to patient's diet to help with wound healing Nursing Care Facility: [facility] Wound Treatment to R toes- Daily Cleanse wound with mild soap and water and pat dry. Apply Calcium Alginate to wound bed Apply dry dressing to cover the wound and secure with tape. Treatment to RLE: Weekly (for prevention) Cleanse wound with mild soap and water and pat dry. Apply moisturizing lotion Apply Calcium Alginate to wound beds gauze Apply Profore lite Do not get wet. Treatment to LLE: weekly Cleanse wound with mild soap and water and pat dry. Apply Calcium Alginate to wound bed Apply Profore lite OK to shower if wound dressing covered Apply Barrier Cream to bilateral buttocks and sacral area daily and PRN. documented in this encounter [facility] 03-06-2024 Note [facility] Wound Care Progress Note CHIEF COMPLAINT: Wound Care HISTORY OF PRESENT ILLNESS: The patient is a 63 y.o. male arrives for recheck wounds of R toes. Feels toes continue to slowly improve. Leg wound improving also. 03/06/24: LLE improving. RLE with scratch vázquez by patient and increase swelling. Right toe ulcer improving. REVIEW OF SYSTEMS: Review of Systems Constitutional: Negative. Negative for chills, fatigue and fever. See HPI Respiratory: Negative. Cardiovascular: Negative. Skin: Positive for wound. Negative for color change (from typical for patient) and rash. PHYSICAL EXAM: BP 101/73 Pulse 82 Temp 36.5 ?C (97.7 ?F) Resp 18 Physical Exam Vitals reviewed. Constitutional: General: He is not in acute distress. Appearance: Normal appearance. He is not ill-appearing or toxic-appearing. HENT: Ears: Comments: Hearing to conversational voice is normal. Pulmonary: Effort: Pulmonary effort is normal. Breath sounds: No wheezing (No audible wheeze). Musculoskeletal: Right lower leg: Edema present. Skin: General: Skin is warm and dry. Comments: Wounds of toes with less maceration. Slowly improving. L lower leg nearing resolution. New scratch vázquez with increase swelling to RLE No evidence of cellulitis. See photos and measurements. Neurological: Mental Status: He is alert and oriented to person, place, and time. Psychiatric: Thought Content: Thought content normal. Wound/Incision 08/23/23 Lymphedema Toe - third Right;Dorsal (Active) Wound Image 03/06/24 1033 Site Assessment Yellow;Sloughing 03/06/24 1033 Carine-Wound Assessment Dry 02/28/24 0957 Wound Length (cm) 1.5 cm 03/06/24 1033 Wound Width (cm) 3 cm 03/06/24 1033 Wound Surface Area (cm^2) 4.5 cm^2 03/06/24 1033 Wound Depth (cm) 0.1 cm 03/06/24 1033 Wound Volume (cm^3) 0.45 cm^3 03/06/24 1033 Wound Healing % -257 03/06/24 1033 Drainage Description Serosanguineous;Yellow 03/06/24 1033 Odor Mild 03/06/24 1033 Drainage Amount Moderate 03/06/24 1033 Treatments Cleansed 03/06/24 1033 Primary Dressing Alginate 03/06/24 1100 Secondary Dressing 4x4 gauze 03/06/24 1100 Secured with Conforming kerlex;Silk tape 02/28/24 1000 Compression Surepress 02/28/24 1000 Periwound Dressing Moisturizing lotion 02/28/24 1000 Dressing Status New dressing;Clean, dry & intact 02/21/24 1000 Wound/Incision 02/21/24 Venous Ulcer Pretibial Left (Active) Wound Image 03/06/24 1034 Site Assessment Black;Brown;Dry 03/06/24 1034 Carine-Wound Assessment Dry;Intact;Moist 02/28/24 0956 Wound Length (cm) 1.5 cm 03/06/24 1034 Wound Width (cm) 1.5 cm 03/06/24 1034 Wound Surface Area (cm^2) 2.25 cm^2 03/06/24 1034 Wound Depth (cm) 0.1 cm 03/06/24 1034 Wound Volume (cm^3) 0.225 cm^3 03/06/24 1034 Wound Healing % 57 03/06/24 1034 Drainage Description Serosanguineous 03/06/24 1034 Odor Mild 03/06/24 1034 Drainage Amount Moderate 03/06/24 1034 Treatments Cleansed 03/06/24 1034 Primary Dressing Alginate 03/06/24 1100 Secondary Dressing 4x4 gauze 02/28/24 1000 Secured with Kerlex;Silk tape 02/28/24 1000 Compression Multilayer compression wrap - 3 layers 03/06/24 1100 Periwound Dressing Moisturizing lotion 03/06/24 1100 Dressing Status New dressing;Clean, dry & intact 02/21/24 1000 Non-pressure chronic ulcer of other 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 Please see attached Discharge Instructions [facility] 02-28-2024 History of Present illness Narrative Associated Order(s): Debridement Post-Procedure Diagnose(s): Venous insufficiency (chronic) (peripheral); Non-pressure chronic ulcer left lower leg, limited to breakdown skin (HCC) Images from the original note were not included. [facility] Wound Care Progress Note CHIEF COMPLAINT: Wound Care HISTORY OF PRESENT ILLNESS: The patient is a 63 y.o. male arrives for recheck wounds of R toes. Feels toes continue to slowly improve. Leg wound improving also. REVIEW OF SYSTEMS: Review of Systems Constitutional: Negative. Negative for chills, fatigue and fever. See HPI Respiratory: Negative. Cardiovascular: Negative. Skin: Positive for wound. Negative for color change (from typical for patient) and rash. PHYSICAL EXAM: BP 133/72 Pulse 60 Temp 36.2 C (97.1 F) Resp 20 Physical Exam Vitals reviewed. Constitutional: General: He is not in acute distress. Appearance: Normal appearance. He is not ill-appearing or toxic-appearing. HENT: Ears: Comments: Hearing to conversational voice is normal. Pulmonary: Effort: Pulmonary effort is normal. Breath sounds: No wheezing (No audible wheeze). Skin: General: Skin is warm and dry. Comments: Wounds of toes with less maceration. Slowly improving. L lower leg nearing resolution. Decrease in area by about 50%. No evidence of cellulitis. See photos and measurements. Neurological: Mental Status: He is alert and oriented to person, place, and time. Psychiatric: Thought Content: Thought content normal. Wound/Incision 08/23/23 Lymphedema Toe - third Right;Dorsal (Active) Wound Image 02/28/24956 Site Assessment Granulation;[place];Sloughing 02/28/24956 Carine-Wound Assessment Dry 02/28/24956 Wound Length (cm) 1.5 cm 02/28/24956 Wound Width (cm) 3 cm 02/28/24956 Wound Surface Area (cm^2) 4.5 cm^2 02/28/24956 Wound Depth (cm) 0.1 cm 02/28/24956 Wound Volume (cm^3) 0.45 cm^3 02/28/24956 Wound Healing % -257 02/28/24956 Drainage Description Serosanguineous;Yellow 02/28/24956 Odor None 02/28/24956 Drainage Amount Moderate 02/28/24956 Treatments Cleansed 02/28/24956 Primary Dressing Alginate 02/28/24 1000 Secondary Dressing ABD 02/28/24 1000 Secured with Conforming kerlex;Silk tape 02/28/24 1000 Compression Surepress 02/28/24 1000 Periwound Dressing Moisturizing lotion 02/28/24 1000 Dressing Status New dressing;Clean, dry & intact 02/21/24 1000 Wound/Incision 02/21/24 Venous Ulcer Pretibial Left (Active) Wound Image 02/28/24955 Site Assessment Eschar;Painful 02/28/24955 Carine-Wound Assessment Dry;Intact;Moist 02/28/24955 Wound Length (cm) 1.8 cm 02/28/24955 Wound Width (cm) 1.6 cm 02/28/24955 Wound Surface Area (cm^2) 2.88 cm^2 02/28/24955 Wound Depth (cm) 0.1 cm 02/28/24955 Wound Volume (cm^3) 0.288 cm^3 02/28/24955 Wound Healing % 45 02/28/24955 Drainage Description Unable to assess 02/28/24955 Odor None 02/28/24955 Drainage Amount Scant 02/28/24955 Treatments Cleansed 02/28/24955 Primary Dressing Alginate 02/28/24 1000 Secondary Dressing 4x4 gauze 02/28/24 1000 Secured with Kerlex;Silk tape 02/28/24 1000 Compression Multilayer compression wrap - 3 layers 02/28/24 1000 Periwound Dressing Moisturizing lotion 02/28/24 1000 Dressing Status New dressing;Clean, dry & intact 02/21/24 1000 Debridement Wound/Incision 02/21/24 Venous Ulcer Pretibial Left Performed by: Julissa Taylor DO Authorized by: Julissa Taylor, DO Consent Consent obtained? verbal Consent given by: patient Risks discussed? procedural risks discussed Immediately prior to the procedure a time out was called and the performing provider verified the correct patient, procedure, equipment, cell support operator, and site/side marked as required. Debridement Details Performed by: physician Debridement type: surgical Level of debridement: subcutaneous tissue Pain control: lidocaine 2% Pain control administration type: topical Pre-debridement measurements Length (cm): 1.8 Width (cm): 1.6 Depth (cm): 0.1 Surface Area (cm^2): 2.88 Post-debridement measurements Length (cm): 2 Width (cm): 1.6 Depth (cm): 0.1 Percent debrided: 100% Surface Area (cm^2): 3.2 Area Debrided (cm^2): 3.2 Volume (cm^3): 0.32 Tissue and other material debrided: dermis, epidermis and subcutaneous tissue Devitalized tissue debrided: biofilm and slough Instrument(s) utilized: curette Bleeding: small Hemostasis obtained with: pressure Procedural pain (0-10): 2 Post-procedural pain: 0 Response to treatment: procedure was tolerated well 1. 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 Non-pressure chronic ulcer left lower leg, limited to breakdown skin (HCC) 3. Venous insufficiency (chronic) (peripheral) 4. Decreased mobility Pt ed, reassure Alginate to toes and L leg Continue MLCD Reviewed s/s infection Recheck one wk, sooner prn Pt agrees with plan. Please see attached Discharge Instructions documented in this encounter [facility] 02-28-2024 Hospital Discharge instructions Giuliana Radford RN - 02/28/2024 10:30 AM EST Return Appointment in: 1 week - Should you experience any significant changes in your wound(s) or have any questions regarding your home care instructions please contact the wound center at [phone] If after regular business hours, please call your family doctor or local emergency room. Edema Control: Elevate legs to the level of the heart or above for 30 minutes daily and/or when sitting Additional Orders/Instructions: Follow diet per physicians instructions - such as increasing protein intake to promote wound healing. Please begin including a protein supplement/shake to patient's diet to help with wound healing RLE is resolved, Profore lite applied for prevention. Nursing Care Facility: [facility] Wound Treatment to R toes- Daily Cleanse wound with mild soap and water and pat dry. Apply Calcium Alginate to wound bed Apply dry dressing to cover the wound and secure with tape. Treatment to RLE: Weekly (for prevention) Cleanse wound with mild soap and water and pat dry. Apply moisturizing lotion Apply Surepress Do not get wet. Treatment to LLE: weekly Cleanse wound with mild soap and water and pat dry. Apply Calcium Alginate to wound bed Apply Profore lite OK to shower if wound dressing covered Apply Barrier Cream to bilateral buttocks and sacral area daily and PRN. documented in this encounter [facility] 02-28-2024 Note [facility] Wound Care Progress Note CHIEF COMPLAINT: Wound Care HISTORY OF PRESENT ILLNESS: The patient is a 63 y.o. male arrives for recheck wounds of R toes. Feels toes continue to slowly improve. Leg wound improving also. REVIEW OF SYSTEMS: Review of Systems Constitutional: Negative. Negative for chills, fatigue and fever. See HPI Respiratory: Negative. Cardiovascular: Negative. Skin: Positive for wound. Negative for color change (from typical for patient) and rash. PHYSICAL EXAM: BP 133/72 Pulse 60 Temp 36.2 ?C (97.1 ?F) Resp 20 Physical Exam Vitals reviewed. Constitutional: General: He is not in acute distress. Appearance: Normal appearance. He is not ill-appearing or toxic-appearing. HENT: Ears: Comments: Hearing to conversational voice is normal. Pulmonary: Effort: Pulmonary effort is normal. Breath sounds: No wheezing (No audible wheeze). Skin: General: Skin is warm and dry. Comments: Wounds of toes with less maceration. Slowly improving. L lower leg nearing resolution. Decrease in area by about 50%. No evidence of cellulitis. See photos and measurements. Neurological: Mental Status: He is alert and oriented to person, place, and time. Psychiatric: Thought Content: Thought content normal. Wound/Incision 08/23/23 Lymphedema Toe - third Right;Dorsal (Active) Wound Image 02/28/24956 Site Assessment Granulation;[place];Sloughing 02/28/24956 Carine-Wound Assessment Dry 02/28/24956 Wound Length (cm) 1.5 cm 02/28/24956 Wound Width (cm) 3 cm 02/28/24956 Wound Surface Area (cm^2) 4.5 cm^2 02/28/24956 Wound Depth (cm) 0.1 cm 02/28/24956 Wound Volume (cm^3) 0.45 cm^3 02/28/24956 Wound Healing % -257 02/28/24956 Drainage Description Serosanguineous;Yellow 11/20/24 0957 Odor None 02/28/24 0957 Drainage Amount Moderate 02/28/24 0957 Treatments Cleansed 02/28/24 0957 Primary Dressing Alginate 02/28/24 1000 Secondary Dressing ABD 02/28/24 1000 Secured with Conforming kerlex;Silk tape 02/28/24 1000 Compression Surepress 02/28/24 1000 Periwound Dressing Moisturizing lotion 02/28/24 1000 Dressing Status New dressing;Clean, dry & intact 02/21/24 1000 Wound/Incision 02/21/24 Venous Ulcer Pretibial Left (Active) Wound Image 02/28/24955 Site Assessment Eschar;Painful 02/28/24955 Carine-Wound Assessment Dry;Intact;Moist 02/28/24955 Wound Length (cm) 1.8 cm 02/28/24955 Wound Width (cm) 1.6 cm 02/28/24955 Wound Surface Area (cm^2) 2.88 cm^2 02/28/24955 Wound Depth (cm) 0.1 cm 02/28/24955 Wound Volume (cm^3) 0.288 cm^3 02/28/24955 Wound Healing % 45 02/28/24 09 Drainage Description Unable to assess 02/28/24955 Odor None 02/28/24955 Drainage Amount Scant 02/28/24 0956 Treatments Cleansed 02/28/24 0956 Primary Dressing Alginate 02/28/24 1000 Secondary Dressing 4x4 gauze 02/28/24 1000 Secured with Kerlex;Silk tape 02/28/24 1000 Compression Multilayer compression wrap - 3 layers 02/28/24 1000 Periwound Dressing Moisturizing lotion 02/28/24 1000 Dressing Status New dressing;Clean, dry & intact 02/21/24 1000 Debridement Wound/Incision 02/21/24 Venous Ulcer Pretibial Left Performed by: Julissa Taylor DO Authorized by: Julissa Taylor, DO Consent Consent obtained? verbal Consent given by: patient Risks discussed? procedural risks discussed Immediately prior to the procedure a time out was called and the performing provider verified the correct patient, procedure, equipment, cell support operator, and site/side marked as required. Debridement Details Performed by: physician Debridement type: surgical Level of debridement: subcutaneous tissue Pain control: lidocaine 2% Pain control administration type: topical Pre-debridement measurements Length (cm): 1.8 Width (cm): 1.6 Depth (cm): 0.1 Surface Area (cm^2): 2.88 Post-debridement measurements Length (cm): 2 Width (cm): 1.6 Depth (cm): 0.1 Percent debrided: 100% Surface Area (cm^2): 3.2 Area Debrided (cm^2): 3.2 Volume (cm^3): 0.32 Tissue and other material debrided: dermis, epidermis and subcutaneous tissue Devitalized tissue debrided: biofilm and slough Instrument(s) utilized: curette Bleeding: small Hemostasis obtained with: pressure Procedural pain (0-10): 2 Post-procedural pain: 0 Response to treatment: procedure was tolerated well 1. 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 Non-pressure chronic ulcer left lower leg, limited to breakdown skin (HCC) 3. Venous insufficiency (chronic) (peripheral) 4. Decreased mobility Pt ed, reassure Alginate to toes and L leg Continue MLCD Reviewed s/s infection Recheck one wk, sooner prn Pt agrees with plan. Please see attached Discharge Instructions [facility] 02-21-2024 Hospital Discharge instructions Giuliana Radford RN - 02/21/2024 9:45 AM EST Return Appointment in: 1 week - Should you experience any significant changes in your wound(s) or have any questions regarding your home care instructions please contact the wound center at [phone] If after regular business hours, please call your family doctor or local emergency room. Edema Control: Elevate legs to the level of the heart or above for 30 minutes daily and/or when sitting Additional Orders/Instructions: Follow diet per physicians instructions - such as increasing protein intake to promote wound healing. Please begin including a protein supplement/shake to patient's diet to help with wound healing RLE is resolved, Profore lite applied for prevention. Nursing Care Facility: [facility] Wound Treatment to R toes- Daily Cleanse wound with mild soap and water and pat dry. Apply moistened collagen to wound bed. Apply Calcium Alginate Apply dry dressing to cover the wound and secure with tape. Treatment to RLE: Weekly Cleanse wound with mild soap and water and pat dry. Apply moisturizing lotion Apply Profore light Do not get wet. Treatment to LLE: weekly Cleanse wound with mild soap and water and pat dry. Apply Calcium Alginate to wound bed Apply Profore lite OK to shower if wound dressing covered Apply Barrier Cream to bilateral buttocks and sacral area daily and PRN. documented in this encounter [facility] 02-21-2024 Note [facility] Wound Care Progress Note CHIEF COMPLAINT: Wound Care HISTORY OF PRESENT ILLNESS: The patient is a 63 y.o. male arrives for recheck wounds of R toes. Feels toes a bit better, but has new wound L lower leg. REVIEW OF SYSTEMS: Review of Systems Constitutional: Negative. Negative for chills, fatigue and fever. See HPI Respiratory: Negative. Cardiovascular: Negative. Skin: Positive for wound. Negative for color change (from typical for patient) and rash. PHYSICAL EXAM: BP 113/72 Pulse 79 Temp 36.2 ?C (97.2 ?F) Resp 18 Physical Exam Vitals reviewed. Constitutional: General: He is not in acute distress. Appearance: Normal appearance. He is not ill-appearing or toxic-appearing. HENT: Ears: Comments: Hearing to conversational voice is normal. Pulmonary: Effort: Pulmonary effort is normal. Breath sounds: No wheezing (No audible wheeze). Skin: General: Skin is warm and dry. Comments: Wounds of toes with less maceration. Slowly improving. L lower leg with appearance of shallow small venous wound. No evidence of cellulitis. See photos and measurements. Neurological: Mental Status: He is alert and oriented to person, place, and time. Psychiatric: Thought Content: Thought content normal. Wound/Incision 08/23/23 Lymphedema Toe - third Right;Dorsal (Active) Wound Image 02/21/24948 Site Assessment [place];Granulation;Sloughing 02/21/24948 Carine-Wound Assessment Dry 02/21/24948 Wound Length (cm) 1.5 cm 02/21/24948 Wound Width (cm) 3.1 cm 02/21/24948 Wound Surface Area (cm^2) 4.65 cm^2 02/21/24948 Wound Depth (cm) 0.1 cm 02/21/24948 Wound Volume (cm^3) 0.465 cm^3 02/21/24948 Wound Healing % -269 02/21/24948 Drainage Description Serosanguineous;Yellow 02/21/24948 Odor Mild 02/21/24948 Drainage Amount Moderate 02/21/24948 Treatments Cleansed 02/21/24948 Primary Dressing Collagen Ag;Calcium alginate 02/21/24 1000 Secondary Dressing 4x4 gauze 02/21/24 1000 Secured with Kerlex;Paper tape 02/21/24 1000 Compression Multilayer compression wrap - 3 layers 02/21/24 1000 Dressing Status New dressing;Clean, dry & intact 02/21/24 1000 Wound/Incision 02/21/24 Venous Ulcer Leg Anterior;Left;Lower (Active) Wound Image 02/21/24950 Site Assessment Red;Bleeding;Brown;Sloughing 02/21/24950 Carine-Wound Assessment Dry 02/21/24950 Wound Length (cm) 2.4 cm 02/21/24950 Wound Width (cm) 2.2 cm 02/21/24950 Wound Surface Area (cm^2) 5.28 cm^2 02/21/24950 Wound Depth (cm) 0.1 cm 02/21/24950 Wound Volume (cm^3) 0.528 cm^3 02/21/24950 Drainage Description Serosanguineous 02/21/24950 Odor None 02/21/24950 Drainage Amount Moderate 02/21/24950 Treatments Cleansed 02/21/24950 Primary Dressing Calcium alginate 02/21/24 1000 Compression Multilayer compression wrap - 3 layers 02/21/24 1000 Dressing Status New dressing;Clean, dry & intact 02/21/24 1000 1. 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 Venous insufficiency (chronic) (peripheral) 3. Non-pressure chronic ulcer left lower leg, limited to breakdown skin (HCC) Pt ed, reassure Alginate to toes and L leg Continue MLCD Reviewed s/s infection Recheck one wk, sooner prn Pt agrees with plan. Please see attached Discharge Instructions [facility] 02-18-2024 Emergency department Note Aamir bernard at bedside [facility] 02-18-2024 Emergency department Note Aamir bernard at bedside Report called to snf at this time EMERGENCY DEPARTMENT ENCOUNTER Pt Name: Moises Madrid Birthdate 1960 Date of evaluation: 02/18/2024 ED Provider: Kaylee Bunch MD CHIEF COMPLAINT Chief Complaint Patient presents with Headache HISTORY OF PRESENT ILLNESS (Location/Symptom, Timing/Onset, Context/Setting, Quality, Duration, Modifying Factors, Severity) Note limiting factors. I wore appropriate PPE for the entirety of this encounter. HPI Moises Madrid is a 63 y.o. with a history of traumatic brain injury in the , chronic headaches who presents to the emergency department with chief complaint of headache that was not relieved with [place] or Tylenol this evening at the retirement facility. The retirement facility sent him to the emergency department to be evaluated for his intractable headache. Nursing Notes were reviewed. Limitations to history: Altered mental status/confusion [facility] historians: [facility] REVIEW OF SYSTEMS Review of Systems Pertinent positives and negatives as per HPI. PAST MEDICAL HISTORY Past Medical History: Diagnosis Date Anxiety Ataxia Atherosclerosis Bipolar 1 disorder (HCC) Chronic migraine w/o aura, not intractable, w/o stat migr Chronic pain Chronic ulcer of left calf (HCC) Concussion with loss of consciousness, with loc of unspecified duration, sequela (HCC) Constipation Contracture, right hand Depression Difficulty walking Dorsopathy Dysphagia Dysphonia Edema GERD (gastroesophageal reflux disease) Headache Hemiplegia (CMS/HCC) (HCC) affecting right dominant side History of pancreatitis 10/28/2022 Hyperlipidemia Hypertension Hypokalemia Insomnia Intracranial injury (HCC) Lack of coordination Mixed receptive-expressive language disorder Muscle weakness Neuropathy 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) Pancreatic abscess 07/14/2022 Pancreatitis PVD (peripheral vascular disease) ([facility]) Reduced mobility Repeated falls SIRS (systemic inflammatory response syndrome) (HCC) TBI (traumatic brain injury) ([facility]) Venous insufficiency SURGICAL HISTORY Past Surgical History: Procedure Laterality Date CHOLECYSTECTOMY 10/28/2022 Zografakis; lap CRANIOTOMY TONSILLECTOMY CURRENT MEDICATIONS Previous Medications ACETAMINOPHEN (TYLENOL) 325 MG TABLET Take 650 mg by mouth every 6 hours as needed for mild pain (1-3) (elevated temp). ALBUTEROL (2.5 MG/3ML) 0.083% NEBULIZER SOLUTION Take by nebulization every 4 hours as needed for wheezing. AMITRIPTYLINE (ELAVIL) 10 MG TABLET Take 10 mg by mouth Nightly. AMMONIUM LACTATE (LAC-HYDRIN) 12 % LOTION Apply topically Nightly. To bilat. legs ARIPIPRAZOLE (ABILIFY) 5 MG TABLET Take 5 mg by mouth daily. ASPIRIN 81 MG EC TABLET Take 81 mg by mouth daily. ATORVASTATIN (LIPITOR) 40 MG TABLET Nightly. B-COMPLEX, FOLIC ACID, PO Take by mouth. BENZONATATE (TESSALON) 200 MG CAPSULE BIOTIN 10 MG TABLET Take by mouth. BISACODYL (DULCOLAX) 10 MG SUPPOSITORY Insert 10 mg into the rectum Daily as needed for constipation. BISACODYL (DULCOLAX) 5 MG EC TABLET Take 5 mg by mouth Daily as needed for constipation. Do not crush, chew, or split. CEPHALEXIN (KEFLEX) 250 MG CAPSULE CHOLECALCIFEROL (VITAMIN D3) 1.25 MG (32096 UT) TABLET Take by mouth 1 (one) time per week. Mondays CLONIDINE (CATAPRES) 0.1 MG TABLET Take 0.1 mg by mouth every 12 hours as needed for high blood pressure (SBP >180, DBP >100). DIVALPROEX SPRINKLE (DEPAKOTE SPRINKLE) [address] CAPSULE Take 2 capsules (250 mg) by mouth in the morning and 2 capsules (250 mg) before bedtime. DOCUSATE SODIUM (COLACE) 100 MG CAPSULE Take 100 mg by mouth daily. ERENUMAB-AOOE (AIMOVIG, 140 MG DOSE, SC) Inject under the skin. FAMOTIDINE (PEPCID) 20 MG TABLET Take 20 mg by mouth daily. FLUTICASONE (FLONASE) 50 MCG/ACT NASAL SPRAY Administer 2 sprays into each nostril daily. Shake gently. Before first use, prime pump. After use, clean tip and replace cap. GABAPENTIN (NEURONTIN) 300 MG CAPSULE Take 300 mg by mouth 2 times daily. GLUCOSAMINE 500 MG CAPSULE Take by mouth 2 times daily. GUAIFENESIN (MUCINEX) 600 MG 12 HR TABLET Take 1,200 mg by mouth 2 times daily. Do not crush, chew, or split. HYDROCODONE-ACETAMINOPHEN (NORCO) 5-325 MG TABLET Take 1 tablet by mouth in the morning and 1 tablet at noon and 1 tablet before bedtime. KETOCONAZOLE (NIZORAL) 2 % CREAM Apply 1 Application topically daily. Apply to brow and face LISINOPRIL 20 MG TABLET Take by mouth daily. MAGNESIUM HYDROXIDE (MILK OF MAGNESIA) 400 MG/5ML SUSPENSION Take 30 mL by mouth Nightly as needed for constipation. MELATONIN 5 MG TABLET Take 10 mg by mouth Nightly. MEMANTINE (NAMENDA) 10 MG TABLET Take 10 mg by mouth 2 times daily. METOPROLOL TARTRATE (LOPRESSOR) 25 MG TABLET Take 25 mg by mouth 2 times daily. MICONAZOLE (MICOTIN) 2 % POWDER Apply topically 2 times daily. OMEGA-3 1000 MG CAPSULE CAPSULE Take 1,000 mg by mouth 2 times daily. ONDANSETRON (ZOFRAN) 4 MG TABLET Take by mouth. POLYETHYLENE GLYCOL 3350 (MIRALAX PO) Take by mouth. POTASSIUM CHLORIDE (KLOR-CON) 20 MEQ PACKET Take 20 mEq by mouth 2 times daily. POTASSIUM CHLORIDE CR (KLOR-CON M20) 20 MEQ ER TABLET Take 20 mEq by mouth daily. SPIRONOLACTONE (ALDACTONE) 100 MG TABLET Take 100 mg by mouth daily. TAMSULOSIN (FLOMAX) 0.4 MG 24 HR CAPSULE Take 0.4 mg by mouth daily. TRAZODONE (DESYREL) 50 MG TABLET Take 50 mg by mouth Nightly. TRIAMCINOLONE (KENALOG) 0.1 % CREAM Apply topically daily. Apply to brow and face VENLAFAXINE XR (EFFEXOR XR) 75 MG 24 HR CAPSULE VENTOLIN HFA 108 (90 BASE) MCG/ACT INHALER ALLERGIES Hydralazine, Other, Prostat [pollen extract], Sulfamethoxazole-trimethoprim, Temazepam, Tramadol, and Clindamycin FAMILY HISTORY No family history on file. SOCIAL HISTORY Social History Socioeconomic History Marital status: Single Tobacco Use Smoking status: Former Types: Cigarettes Smokeless tobacco: Never Vaping Use Vaping status: Never Used Substance and Sexual Activity Alcohol use: Never Drug use: Never Social Drivers of Health Transportation Needs: No Transportation Needs (06/08/2022) PRAPARE - Transportation Lack of Transportation (Medical): No Lack of Transportation (Non-Medical): No Intimate Partner Violence: Not At Risk (06/08/2022) Humiliation, Afraid, Rape, and Kick questionnaire Fear of Current or Ex-Partner: No Emotionally Abused: No Physically Abused: No Sexually Abused: No Housing Stability: Unknown (06/08/2022) Housing Stability Vital Sign Unable to Pay for Housing in the Last Year: No Unstable Housing in the Last Year: No SCREENINGS PHYSICAL EXAM ED Triage Vitals [02/18/24 0102] Temp Heart Rate Resp BP 36.5 C (97.7 F) 77 20 109/76 SpO2 Temp Source Heart Rate Source Patient Position 94 % Oral -- -- BP Location FiO2 (%) -- -- Physical Exam Vitals and nursing note reviewed. Constitutional: General: He is not in acute distress. Comments: Disheveled, oriented to person and place but not time (patient thought it was 2022) HENT: Head: Normocephalic and atraumatic. Mouth/Throat: Comments: Dry mucous membranes Eyes: Extraocular Movements: Extraocular movements intact. Conjunctiva/sclera: Conjunctivae normal. Pupils: Pupils are equal, round, and reactive to light. Cardiovascular: Rate and Rhythm: Normal rate and regular rhythm. Heart sounds: No murmur heard. Pulmonary: Effort: Pulmonary effort is normal. No respiratory distress. Breath sounds: Normal breath sounds. Abdominal: Palpations: Abdomen is soft. Tenderness: There is no abdominal tenderness. Musculoskeletal: General: No swelling. Cervical back: Neck supple. Skin: General: Skin is warm and dry. Capillary Refill: Capillary refill takes less than 2 seconds. Neurological: Mental Status: He is alert. GCS: GCS eye subscore is 4. GCS verbal subscore is 4. GCS motor subscore is 6. Comments: Patient moves upper and lower extremities equally bilaterally Psychiatric: Mood and Affect: Mood normal. DIAGNOSTIC RESULTS RADIOLOGY CT head wo IV contrast Final Result No acute intracranial hemorrhage or territorial infarct. Findings suggestive of acute and chronic paranasal sinusitis. Report Dictated on Electronically Signed By: Jus Barlow DR Electronically Signed Date/Time: 02/18/2024 1:49 AM EST ED BEDSIDE ULTRASOUND: Performed by ED Physician - none LABS: Labs Reviewed CBC WITH AUTO DIFFERENTIAL - Abnormal Result Value Auto WBC 7.8 RBC 5.46 Hemoglobin 16.9 Hematocrit 49.2 MCV 90.1 MCH 31.0 MCHC 34.3 RDW 13.2 Platelets 133 (*) MPV 10.9 nRBC 0.0 Neutrophils Relative 53.2 Lymphocytes Relative 35.0 Monocytes Relative 7.6 Eosinophils Relative 2.8 Basophils Relative 0.8 Immature Grans % 0.6 Neutrophils Absolute 4.1 Lymphocytes Absolute 2.7 Monocytes Absolute 0.6 Eosinophils Absolute 0.2 Basophils Absolute 0.1 Immature Grans Absolute 0.1 (*) IPF 4 COMPREHENSIVE METABOLIC PANEL - Abnormal SODIUM 135 POTASSIUM 4.5 CHLORIDE 100 CARBON DIOXIDE 30 ANION GAP 6 UREA NITROGEN 18 CREATININE 0.99 GLUCOSE 104 (*) CALCIUM 9.6 AST (SGOT) 48 (*) ALT 52 (*) ALKALINE PHOSPHATASE 68 ALBUMIN 4.7 BILIRUBIN, TOTAL 1.4 (*) TOTAL PROTEIN 8.0 eGFR 86.7 PROTIME & APTT - Normal PROTHROMBIN TIME 11.9 INR 1.1 APTT 25.0 COMPREHENSIVE METABOLIC PANEL WITH MG REFLEX Narrative: The following orders were created for panel order Comprehensive Metabolic Panel with Mg Reflex. Procedure Abnormality Status --------- ------ Comprehensive metabolic ...[[id number]] Abnormal Final result Please view results for these tests on the individual orders. All other labs were within normal range or not returned as of this dictation. EMERGENCY DEPARTMENT COURSE and DIFFERENTIAL DIAGNOSIS/MDM: Vitals: Vitals: 02/18/24 0102 BP: 109/76 Pulse: 77 Resp: 20 Temp: 36.5 C (97.7 F) TempSrc: Oral SpO2: 94% Moises Madrid is a 63 y.o. with a history of traumatic brain injury in the , chronic headaches who presents to the emergency department with chief complaint of headache that was not relieved with [place] or Tylenol this evening at the retirement facility. The retirement facility sent him to the emergency department to be evaluated for his intractable headache. Differential diagnosis for persistent headache includes but not limited to intracranial pathology Diagnoses as of 02/18/24 0249 Nonintractable headache, unspecified chronicity pattern, unspecified headache type Patient had a CT of the head that was negative for acute pathology. Patient was given Toradol and Zofran. Medications ketorolac (Toradol) injection 15 mg (15 mg IntraVENous Given 02/18/24201) ondansetron (Zofran) injection 4 mg (4 mg IntraVENous Given 02/18/24202) REVAL: Patient on reexamination at 2:47 AM states his headache feels much better and is ready to go back to the retirement facility. FINAL IMPRESSION 1. Nonintractable headache, unspecified chronicity pattern, unspecified headache type DISPOSITION Discharge 02/18/2024 02:49:31 AM PATIENT REFERRED TO: Demetrius Fenton [address] [facility] [id number] DISCHARGE MEDICATIONS: New Prescriptions No medications on file (Comment: Please note this report has been produced using speech recognition software and may contain errors related to that system including errors in grammar, punctuation, and spelling, as well as words and phrases that may be inappropriate. If there are any questions or concerns please feel free to contact the dictating provider for clarification.) Kaylee Bunch MD (electronically signed) Emergency Medicine Provider Kaylee Bunch MD 02/18/24 025 Pt presents with headache, 12/18, from [facility], unsure was if he was given any meds at [facility], alert and oriented x3, disoriented to year, oriented to month, according to [facility] he received norco and tylenol w no relief, per snf states he has constant headache documented in this encounter [facility] 02-18-2024 Emergency department Note Report called to [facility] at this time [facility] 02-18-2024 Hospital Discharge instructions Kaylee Bunch MD - 02/18/2024 2:49 AM EST Return if fever, focal numbness tingling weakness or as needed. The following attachments cannot be sent through Care Everywhere.Headache Discharge Instructions, Adult (Norwegian)documented in this encounter [facility] 02-18-2024 Emergency department Triage note Pt presents with headache, 12/18, from [facility], unsure was if he was given any meds at [facility], alert and oriented x3, disoriented to year, oriented to month, according to [facility] he received norco and tylenol w no relief, per [facility] states he has constant headache [facility] 02-18-2024 Physician Emergency department Note EMERGENCY DEPARTMENT ENCOUNTER Pt Name: Moises Madrid Birthdate 1960 Date of evaluation: 02/18/2024 ED Provider: Kaylee Bunch MD CHIEF COMPLAINT Chief Complaint Patient presents with Headache HISTORY OF PRESENT ILLNESS (Location/Symptom, Timing/Onset, Context/Setting, Quality, Duration, Modifying Factors, Severity) Note limiting factors. I wore appropriate PPE for the entirety of this encounter. HPI Moises Madrid is a 63 y.o. with a history of traumatic brain injury in the 1980s, chronic headaches who presents to the emergency department with chief complaint of headache that was not relieved with [place] or Tylenol this evening at the retirement facility. The retirement facility sent him to the emergency department to be evaluated for his intractable headache. Nursing Notes were reviewed. Limitations to history: Altered mental status/confusion Outside historians: [facility] REVIEW OF SYSTEMS Review of Systems Pertinent positives and negatives as per HPI. PAST MEDICAL HISTORY Past Medical History: Diagnosis Date Anxiety Ataxia Atherosclerosis Bipolar 1 disorder (HCC) Chronic migraine w/o aura, not intractable, w/o stat migr Chronic pain Chronic ulcer of left calf ([facility]) Concussion with loss of consciousness, with loc of unspecified duration, sequela (HCC) Constipation Contracture, right hand Depression Difficulty walking Dorsopathy Dysphagia Dysphonia Edema GERD (gastroesophageal reflux disease) Headache Hemiplegia (CMS/HCC) ([facility]) affecting right dominant side History of pancreatitis 10/28/2022 Hyperlipidemia Hypertension Hypokalemia Insomnia Intracranial injury ([facility]) Lack of coordination Mixed receptive-expressive language disorder Muscle weakness Neuropathy Non-pressure chronic ulcer of other part of right foot with fat layer exposed ([facility]) Pancreatic abscess 07/14/2022 Pancreatitis PVD (peripheral vascular disease) ([facility]) Reduced mobility Repeated falls SIRS (systemic inflammatory response syndrome) ([facility]) TBI (traumatic brain injury) ([facility]) Venous insufficiency SURGICAL HISTORY Past Surgical History: Procedure Laterality Date CHOLECYSTECTOMY 10/28/2022 Zografakis; lap CRANIOTOMY TONSILLECTOMY CURRENT MEDICATIONS Previous Medications ACETAMINOPHEN (TYLENOL) 325 MG TABLET Take 650 mg by mouth every 6 hours as needed for mild pain (1-3) (elevated temp). ALBUTEROL (2.5 MG/3ML) 0.083% NEBULIZER SOLUTION Take by nebulization every 4 hours as needed for wheezing. AMITRIPTYLINE (ELAVIL) 10 MG TABLET Take 10 mg by mouth Nightly. AMMONIUM LACTATE (LAC-HYDRIN) 12 % LOTION Apply topically Nightly. To bilat. legs ARIPIPRAZOLE (ABILIFY) 5 MG TABLET Take 5 mg by mouth daily. ASPIRIN 81 MG EC TABLET Take 81 mg by mouth daily. ATORVASTATIN (LIPITOR) 40 MG TABLET Nightly. B-COMPLEX, FOLIC ACID, PO Take by mouth. BENZONATATE (TESSALON) 200 MG CAPSULE BIOTIN 10 MG TABLET Take by mouth. BISACODYL (DULCOLAX) 10 MG SUPPOSITORY Insert 10 mg into the rectum Daily as needed for constipation. BISACODYL (DULCOLAX) 5 MG EC TABLET Take 5 mg by mouth Daily as needed for constipation. Do not crush, chew, or split. CEPHALEXIN (KEFLEX) 250 MG CAPSULE CHOLECALCIFEROL (VITAMIN D3) 1.25 MG (44303 UT) TABLET Take by mouth 1 (one) time per week. Mondays CLONIDINE (CATAPRES) 0.1 MG TABLET Take 0.1 mg by mouth every 12 hours as needed for high blood pressure (SBP >180, DBP >100). DIVALPROEX SPRINKLE (DEPAKOTE SPRINKLE) [address] CAPSULE Take 2 capsules (250 mg) by mouth in the morning and 2 capsules (250 mg) before bedtime. DOCUSATE SODIUM (COLACE) 100 MG CAPSULE Take 100 mg by mouth daily. ERENUMAB-AOOE (AIMOVIG, 140 MG DOSE, SC) Inject under the skin. FAMOTIDINE (PEPCID) 20 MG TABLET Take 20 mg by mouth daily. FLUTICASONE (FLONASE) 50 MCG/ACT NASAL SPRAY Administer 2 sprays into each nostril daily. Shake gently. Before first use, prime pump. After use, clean tip and replace cap. GABAPENTIN (NEURONTIN) 300 MG CAPSULE Take 300 mg by mouth 2 times daily. GLUCOSAMINE 500 MG CAPSULE Take by mouth 2 times daily. GUAIFENESIN (MUCINEX) 600 MG 12 HR TABLET Take 1,200 mg by mouth 2 times daily. Do not crush, chew, or split. HYDROCODONE-ACETAMINOPHEN (NORCO) 5-325 MG TABLET Take 1 tablet by mouth in the morning and 1 tablet at noon and 1 tablet before bedtime. KETOCONAZOLE (NIZORAL) 2 % CREAM Apply 1 Application topically daily. Apply to brow and face LISINOPRIL 20 MG TABLET Take by mouth daily. MAGNESIUM HYDROXIDE (MILK OF MAGNESIA) 400 MG/5ML SUSPENSION Take 30 mL by mouth Nightly as needed for constipation. MELATONIN 5 MG TABLET Take 10 mg by mouth Nightly. MEMANTINE (NAMENDA) 10 MG TABLET Take 10 mg by mouth 2 times daily. METOPROLOL TARTRATE (LOPRESSOR) 25 MG TABLET Take 25 mg by mouth 2 times daily. MICONAZOLE (MICOTIN) 2 % POWDER Apply topically 2 times daily. OMEGA-3 1000 MG CAPSULE CAPSULE Take 1,000 mg by mouth 2 times daily. ONDANSETRON (ZOFRAN) 4 MG TABLET Take by mouth. POLYETHYLENE GLYCOL 3350 (MIRALAX PO) Take by mouth. POTASSIUM CHLORIDE (KLOR-CON) 20 MEQ PACKET Take 20 mEq by mouth 2 times daily. POTASSIUM CHLORIDE CR (KLOR-CON M20) 20 MEQ ER TABLET Take 20 mEq by mouth daily. SPIRONOLACTONE (ALDACTONE) 100 MG TABLET Take 100 mg by mouth daily. TAMSULOSIN (FLOMAX) 0.4 MG 24 HR CAPSULE Take 0.4 mg by mouth daily. TRAZODONE (DESYREL) 50 MG TABLET Take 50 mg by mouth Nightly. TRIAMCINOLONE (KENALOG) 0.1 % CREAM Apply topically daily. Apply to brow and face VENLAFAXINE XR (EFFEXOR XR) 75 MG 24 HR CAPSULE VENTOLIN HFA 108 (90 BASE) MCG/ACT INHALER ALLERGIES Hydralazine, Other, Prostat [pollen extract], Sulfamethoxazole-trimethoprim, Temazepam, Tramadol, and Clindamycin FAMILY HISTORY No family history on file. SOCIAL HISTORY Social History Socioeconomic History Marital status: Single Tobacco Use Smoking status: Former Types: Cigarettes Smokeless tobacco: Never Vaping Use Vaping status: Never Used Substance and Sexual Activity Alcohol use: Never Drug use: Never Social Drivers of Health Transportation Needs: No Transportation Needs (06/08/2022) PRAPARE - Transportation Lack of Transportation (Medical): No Lack of Transportation (Non-Medical): No Intimate Partner Violence: Not At Risk (06/08/2022) Humiliation, Afraid, Rape, and Kick questionnaire Fear of Current or Ex-Partner: No Emotionally Abused: No Physically Abused: No Sexually Abused: No Housing Stability: Unknown (06/08/2022) Housing Stability Vital Sign Unable to Pay for Housing in the Last Year: No Unstable Housing in the Last Year: No SCREENINGS PHYSICAL EXAM ED Triage Vitals [02/18/24 0102] Temp Heart Rate Resp BP 36.5 C (97.7 F) 77 20 109/76 SpO2 Temp Source Heart Rate Source Patient Position 94 % Oral -- -- BP Location FiO2 (%) -- -- Physical Exam Vitals and nursing note reviewed. Constitutional: General: He is not in acute distress. Comments: Disheveled, oriented to person and place but not time (patient thought it was 2022) HENT: Head: Normocephalic and atraumatic. Mouth/Throat: Comments: Dry mucous membranes Eyes: Extraocular Movements: Extraocular movements intact. Conjunctiva/sclera: Conjunctivae normal. Pupils: Pupils are equal, round, and reactive to light. Cardiovascular: Rate and Rhythm: Normal rate and regular rhythm. Heart sounds: No murmur heard. Pulmonary: Effort: Pulmonary effort is normal. No respiratory distress. Breath sounds: Normal breath sounds. Abdominal: Palpations: Abdomen is soft. Tenderness: There is no abdominal tenderness. Musculoskeletal: General: No swelling. Cervical back: Neck supple. Skin: General: Skin is warm and dry. Capillary Refill: Capillary refill takes less than 2 seconds. Neurological: Mental Status: He is alert. GCS: GCS eye subscore is 4. GCS verbal subscore is 4. GCS motor subscore is 6. Comments: Patient moves upper and lower extremities equally bilaterally Psychiatric: Mood and Affect: Mood normal. DIAGNOSTIC RESULTS RADIOLOGY CT head wo IV contrast Final Result No acute intracranial hemorrhage or territorial infarct. Findings suggestive of acute and chronic paranasal sinusitis. Report Dictated on Electronically Signed By: Jus Barlow DR Electronically Signed Date/Time: 02/18/2024 1:49 AM EST ED BEDSIDE ULTRASOUND: Performed by ED Physician - none LABS: Labs Reviewed CBC WITH AUTO DIFFERENTIAL - Abnormal Result Value Auto WBC 7.8 RBC 5.46 Hemoglobin 16.9 Hematocrit 49.2 MCV 90.1 MCH 31.0 MCHC 34.3 RDW 13.2 Platelets 133 (*) MPV 10.9 nRBC 0.0 Neutrophils Relative 53.2 Lymphocytes Relative 35.0 Monocytes Relative 7.6 Eosinophils Relative 2.8 Basophils Relative 0.8 Immature Grans % 0.6 Neutrophils Absolute 4.1 Lymphocytes Absolute 2.7 Monocytes Absolute 0.6 Eosinophils Absolute 0.2 Basophils Absolute 0.1 Immature Grans Absolute 0.1 (*) IPF 4 COMPREHENSIVE METABOLIC PANEL - Abnormal SODIUM 135 POTASSIUM 4.5 CHLORIDE 100 CARBON DIOXIDE 30 ANION GAP 6 UREA NITROGEN 18 CREATININE 0.99 GLUCOSE 104 (*) CALCIUM 9.6 AST (SGOT) 48 (*) ALT 52 (*) ALKALINE PHOSPHATASE 68 ALBUMIN 4.7 BILIRUBIN, TOTAL 1.4 (*) TOTAL PROTEIN 8.0 eGFR 86.7 PROTIME & APTT - Normal PROTHROMBIN TIME 11.9 INR 1.1 APTT 25.0 COMPREHENSIVE METABOLIC PANEL WITH MG REFLEX Narrative: The following orders were created for panel order Comprehensive Metabolic Panel with Mg Reflex. Procedure Abnormality Status --------- ------ Comprehensive metabolic ...[[id number]] Abnormal Final result Please view results for these tests on the individual orders. All other labs were within normal range or not returned as of this dictation. EMERGENCY DEPARTMENT COURSE and DIFFERENTIAL DIAGNOSIS/MDM: Vitals: Vitals: 02/18/24 0102 BP: 109/76 Pulse: 77 Resp: 20 Temp: 36.5 C (97.7 F) TempSrc: Oral SpO2: 94% Moises Madrid is a 63 y.o. with a history of traumatic brain injury in the 1980s, chronic headaches who presents to the emergency department with chief complaint of headache that was not relieved with [place] or Tylenol this evening at the retirement facility. The retirement facility sent him to the emergency department to be evaluated for his intractable headache. Differential diagnosis for persistent headache includes but not limited to intracranial pathology Diagnoses as of 02/18/24 0249 Nonintractable headache, unspecified chronicity pattern, unspecified headache type Patient had a CT of the head that was negative for acute pathology. Patient was given Toradol and Zofran. Medications ketorolac (Toradol) injection 15 mg (15 mg IntraVENous Given 02/18/24 020) ondansetron (Zofran) injection 4 mg (4 mg IntraVENous Given 02/18/24 020) REVAL: Patient on reexamination at 2:47 AM states his headache feels much better and is ready to go back to the retirement facility. FINAL IMPRESSION 1. Nonintractable headache, unspecified chronicity pattern, unspecified headache type DISPOSITION Discharge 02/18/2024 02:49:31 AM PATIENT REFERRED TO: Demetrius Fenton [address] [facility] [address] DISCHARGE MEDICATIONS: New Prescriptions No medications on file (Comment: Please note this report has been produced using speech recognition software and may contain errors related to that system including errors in grammar, punctuation, and spelling, as well as words and phrases that may be inappropriate. If there are any questions or concerns please feel free to contact the dictating provider for clarification.) Kaylee Bunch MD (electronically signed) Emergency Medicine Provider Kaylee Bunch MD 02/18/24 0250 [facility] 02-14-2024 History of Present illness Narrative Images from the original note were not included. [facility] Wound Care Progress Note CHIEF COMPLAINT: Wound Care HISTORY OF PRESENT ILLNESS: The patient is a 63 y.o. male arrives for recheck wounds of R toes. Feels toes a bit better. REVIEW OF SYSTEMS: Review of Systems Constitutional: Negative. Negative for chills, fatigue and fever. See HPI Respiratory: Negative. Cardiovascular: Negative. Skin: Positive for wound. Negative for color change (from typical for patient) and rash. PHYSICAL EXAM: BP 122/82 (BP Location: Left arm, Patient Position: Sitting) Pulse 80 Temp 36.2 C (97.2 F) Resp 18 Physical Exam Vitals reviewed. Constitutional: General: He is not in acute distress. Appearance: Normal appearance. He is not ill-appearing or toxic-appearing. HENT: Ears: Comments: Hearing to conversational voice is normal. Pulmonary: Effort: Pulmonary effort is normal. Breath sounds: No wheezing (No audible wheeze). Skin: General: Skin is warm and dry. Comments: Wounds of toes with less maceration. Some callus. No evidence of cellulitis. See photos and measurements. Neurological: Mental Status: He is alert and oriented to person, place, and time. Psychiatric: Thought Content: Thought content normal. Wound/Incision 08/23/23 Lymphedema Toe - third Right;Dorsal (Active) Wound Image 02/14/24843 Site Assessment Granulation;[place] 02/14/24843 Car[place]-Wound Assessment Moist 02/14/24843 Wound Length (cm) 1.5 cm 02/14/24843 Wound Width (cm) 3.5 cm 02/14/24843 Wound Surface Area (cm^2) 5.25 cm^2 02/14/24843 Wound Depth (cm) 0.1 cm 02/14/24843 Wound Volume (cm^3) 0.525 cm^3 02/14/24843 Wound Healing % -317 02/14/24843 Drainage Description Serosanguineous;Yellow 02/14/24843 Odor None 02/14/24843 Drainage Amount Moderate 02/14/24843 Treatments Cleansed 02/14/24843 Primary Dressing Collagen;Calcium alginate 02/14/24843 Secondary Dressing ABD;4x4 gauze 02/14/24843 Secured with Kerlex;Paper tape 02/14/24843 Compression Multilayer compression wrap - 3 layers 02/14/24843 Dressing Status New dressing;Clean, dry & intact 02/14/24843 1. 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 Venous insufficiency (chronic) (peripheral) 3. Decreased mobility Pt ed, reassure Alginate to toes Continue MLCD on R Reviewed s/s infection Recheck one wk, sooner prn Pt agrees with plan. Please see attached Discharge Instructions documented in this encounter [facility] 02-14-2024 History of Present illness Narrative Images from the original note were not included. [facility] Wound Care Progress Note CHIEF COMPLAINT: Wound Care HISTORY OF PRESENT ILLNESS: The patient is a 63 y.o. male arrives for recheck wounds of R toes. Feels toes a bit better. REVIEW OF SYSTEMS: Review of Systems Constitutional: Negative. Negative for chills, fatigue and fever. See HPI Respiratory: Negative. Cardiovascular: Negative. Skin: Positive for wound. Negative for color change (from typical for patient) and rash. PHYSICAL EXAM: BP 122/82 (BP Location: Left arm, Patient Position: Sitting) Pulse 80 Temp 36.2 C (97.2 F) Resp 18 Physical Exam Vitals reviewed. Constitutional: General: He is not in acute distress. Appearance: Normal appearance. He is not ill-appearing or toxic-appearing. HENT: Ears: Comments: Hearing to conversational voice is normal. Pulmonary: Effort: Pulmonary effort is normal. Breath sounds: No wheezing (No audible wheeze). Skin: General: Skin is warm and dry. Comments: Wounds of toes with less maceration. Some callus. No evidence of cellulitis. See photos and measurements. Neurological: Mental Status: He is alert and oriented to person, place, and time. Psychiatric: Thought Content: Thought content normal. Wound/Incision 08/23/23 Lymphedema Toe - third Right;Dorsal (Active) Wound Image 02/14/24843 Site Assessment Granulation;[place] 02/14/24843 Carine-Wound Assessment Moist 02/14/24843 Wound Length (cm) 1.5 cm 02/14/24843 Wound Width (cm) 3.5 cm 02/14/24843 Wound Surface Area (cm^2) 5.25 cm^2 02/14/24843 Wound Depth (cm) 0.1 cm 02/14/24843 Wound Volume (cm^3) 0.525 cm^3 02/14/24843 Wound Healing % -317 02/14/24843 Drainage Description Serosanguineous;Yellow 02/14/24843 Odor None 02/14/24843 Drainage Amount Moderate 02/14/24843 Treatments Cleansed 02/14/24843 Primary Dressing Collagen;Calcium alginate 02/14/24843 Secondary Dressing ABD;4x4 gauze 02/14/24843 Secured with Kerlex;Paper tape 02/14/24843 Compression Multilayer compression wrap - 3 layers 02/14/24843 Dressing Status New dressing;Clean, dry & intact 02/14/24843 1. 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 Venous insufficiency (chronic) (peripheral) 3. Decreased mobility Pt ed, reassure Alginate to toes Continue MLCD on R Reviewed s/s infection Recheck one wk, sooner prn Pt agrees with plan. Please see attached Discharge Instructions documented in this encounter [facility] 02-14-2024 Hospital Discharge instructions Giuliana Radford RN - 02/14/2024 8:45 AM EST Return Appointment in: 1 week - Should you experience any significant changes in your wound(s) or have any questions regarding your home care instructions please contact the wound center at [phone] If after regular business hours, please call your family doctor or local emergency room. Edema Control: Elevate legs to the level of the heart or above for 30 minutes daily and/or when sitting Additional Orders/Instructions: Follow diet per physicians instructions - such as increasing protein intake to promote wound healing. Please begin including a protein supplement/shake to patient's diet to help with wound healing RLE is resolved, Profore lite applied for prevention. Nursing Care Facility: [facility] Wound Treatment to R toes- Daily Cleanse wound with mild soap and water and pat dry. Apply moistened collagen to wound bed. Apply Calcium Alginate Apply dry dressing to cover the wound and secure with tape. Treatment to RLE: Weekly Cleanse wound with mild soap and water and pat dry. Apply moisturizing lotion Apply Profore light Do not get wet. OK to shower if wound dressing covered Apply Barrier Cream to bilateral buttocks and sacral area daily and PRN. documented in this encounter [facility] 02-14-2024 Hospital Discharge instructions Giuliana Radford RN - 02/14/2024 8:45 AM EST Return Appointment in: 1 week - Should you experience any significant changes in your wound(s) or have any questions regarding your home care instructions please contact the wound center at [phone] If after regular business hours, please call your family doctor or local emergency room. Edema Control: Elevate legs to the level of the heart or above for 30 minutes daily and/or when sitting Additional Orders/Instructions: Follow diet per physicians instructions - such as increasing protein intake to promote wound healing. Please begin including a protein supplement/shake to patient's diet to help with wound healing RLE is resolved, Profore lite applied for prevention. Nursing Care Facility: [facility] Wound Treatment to R toes- Daily Cleanse wound with mild soap and water and pat dry. Apply moistened collagen to wound bed. Apply Calcium Alginate Apply dry dressing to cover the wound and secure with tape. Treatment to RLE: Weekly Cleanse wound with mild soap and water and pat dry. Apply moisturizing lotion Apply Profore light Do not get wet. OK to shower if wound dressing covered Apply Barrier Cream to bilateral buttocks and sacral area daily and PRN. documented in this encounter [facility] 02-14-2024 Miscellaneous Notes Encounter addended by: Marycarmen Corona RN on: 02/15/2024 9:48 AM Actions taken: Charge Capture section accepted documented in this encounter [facility] 02-14-2024 Note Encounter addended b y: Marycarmen Corona RN on: 02/15/2024 9:48 AM Actions taken: Charge Capture section accepted [facility] 02-14-2024 Note [facility] Wound Care Progress Note CHIEF COMPLAINT: Wound Care HISTORY OF PRESENT ILLNESS: The patient is a 63 y.o. male arrives for recheck wounds of R toes. Feels toes a bit better. REVIEW OF SYSTEMS: Review of Systems Constitutional: Negative. Negative for chills, fatigue and fever. See HPI Respiratory: Negative. Cardiovascular: Negative. Skin: Positive for wound. Negative for color change (from typical for patient) and rash. PHYSICAL EXAM: BP 122/82 (BP Location: Left arm, Patient Position: Sitting) Pulse 80 Temp 36.2 ?C (97.2 ?F) Resp 18 Physical Exam Vitals reviewed. Constitutional: General: He is not in acute distress. Appearance: Normal appearance. He is not ill-appearing or toxic-appearing. HENT: Ears: Comments: Hearing to conversational voice is normal. Pulmonary: Effort: Pulmonary effort is normal. Breath sounds: No wheezing (No audible wheeze). Skin: General: Skin is warm and dry. Comments: Wounds of toes with less maceration. Some callus. No evidence of cellulitis. See photos and measurements. Neurological: Mental Status: He is alert and oriented to person, place, and time. Psychiatric: Thought Content: Thought content normal. Wound/Incision 08/23/23 Lymphedema Toe - third Right;Dorsal (Active) Wound Image 02/14/24843 Site Assessment Granulation;[place] 02/14/24843 Carine-Wound Assessment Moist 02/14/24843 Wound Length (cm) 1.5 cm 02/14/24843 Wound Width (cm) 3.5 cm 02/14/24843 Wound Surface Area (cm^2) 5.25 cm^2 02/14/24843 Wound Depth (cm) 0.1 cm 02/14/24843 Wound Volume (cm^3) 0.525 cm^3 02/14/24843 Wound Healing % -317 02/14/24843 Drainage Description Serosanguineous;Yellow 02/14/24843 Odor None 02/14/24843 Drainage Amount Moderate 02/14/24843 Treatments Cleansed 02/14/24843 Primary Dressing Collagen;Calcium alginate 02/14/24843 Secondary Dressing ABD;4x4 gauze 02/14/24843 Secured with Kerlex;Paper tape 02/14/24843 Compression Multilayer compression wrap - 3 layers 02/14/24843 Dressing Status New dressing;Clean, dry & intact 02/14/24843 1. 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 Venous insufficiency (chronic) (peripheral) 3. Decreased mobility Pt ed, reassure Alginate to toes Continue MLCD on R Reviewed s/s infection Recheck one wk, sooner prn Pt agrees with plan. Please see attached Discharge Instructions [facility] 02-07-2024 History of Present illness Narrative Images from the original note were not included. [facility] Wound Care Progress Note CHIEF COMPLAINT: Wound Care HISTORY OF PRESENT ILLNESS: The patient is a 63 y.o. male arrives for recheck wounds of R toes. Feels toes a bit better. REVIEW OF SYSTEMS: Review of Systems Constitutional: Negative. Negative for chills, fatigue and fever. See HPI Respiratory: Negative. Cardiovascular: Negative. Skin: Positive for wound. Negative for color change (from typical for patient) and rash. PHYSICAL EXAM: BP 100/69 (BP Location: Right arm, Patient Position: Sitting, BP Cuff Size: Adult) Pulse 89 Temp 36.6 C (97.8 F) (Temporal) Resp 18 Physical Exam Vitals reviewed. Constitutional: General: He is not in acute distress. Appearance: Normal appearance. He is not ill-appearing or toxic-appearing. HENT: Ears: Comments: Hearing to conversational voice is normal. Pulmonary: Effort: Pulmonary effort is normal. Breath sounds: No wheezing (No audible wheeze). Skin: General: Skin is warm and dry. Comments: Wounds of toes with maceration. Some callus. No evidence of cellulitis. See photos and measurements. Neurological: Mental Status: He is alert and oriented to person, place, and time. Psychiatric: Thought Content: Thought content normal. Wound/Incision 08/23/23 Lymphedema Toe - third Right;Dorsal (Active) Wound Image 02/07/24923 Site Assessment Granulation;[place];Swelling 02/07/24923 Carine-Wound Assessment Boggy;Moist 02/07/24923 Wound Length (cm) 1.4 cm 02/07/24923 Wound Width (cm) 3.5 cm 02/07/24923 Wound Surface Area (cm^2) 4.9 cm^2 02/07/24923 Wound Depth (cm) 0.1 cm 02/07/24923 Wound Volume (cm^3) 0.49 cm^3 02/07/24923 Wound Healing % -289 02/07/24923 Drainage Description Serosanguineous 02/07/24923 Odor None 02/07/24923 Drainage Amount Small 02/07/24923 Treatments Cleansed 02/07/24923 Primary Dressing Calcium alginate 01/31/24817 Secondary Dressing 4x4 gauze 01/31/24817 Secured with Kerlex;Paper tape 01/31/24817 Compression Multilayer compression wrap - 3 layers 01/31/24817 Dressing Status Clean, dry & intact;New dressing 01/10/24 0934 1. 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 Venous insufficiency (chronic) (peripheral) 3. Decreased mobility Pt ed, reassure Alginate to toes Continue MLCD on R Await determination for product. Reviewed s/s infection Recheck one wk, sooner prn Pt agrees with plan. Please see attached Discharge Instructions documented in this encounter [facility] 02-07-2024 Hospital Discharge instructions Giuliana Radford RN - 02/07/2024 8:45 AM EDT Return Appointment in: 1 week - Should you experience any significant changes in your wound(s) or have any questions regarding your home care instructions please contact the wound center at [phone] If after regular business hours, please call your family doctor or local emergency room. Edema Control: Elevate legs to the level of the heart or above for 30 minutes daily and/or when sitting Additional Orders/Instructions: Follow diet per physicians instructions - such as increasing protein intake to promote wound healing. Please begin including a protein supplement/shake to patient's diet to help with wound healing Take antibiotic as directed Nursing Care Facility: [facility] Wound Treatment to R toes- Daily Cleanse wound with mild soap and water and pat dry. Apply Calcium Alginate Apply dry dressing to cover the wound and secure with tape. Wound Treatment to RLE: Weekly Cleanse wound with mild soap and water and pat dry. Apply Calcium Alginate Apply Profore light Do not get wet. OK to shower if wound dressing covered Apply Barrier Cream to bilateral buttocks and sacral area daily and PRN. documented in this encounter [facility] 02-07-2024 Miscellaneous Notes Encounter addended by: Adriana Barbosa MA on: 02/07/2024 10:26 AM Actions taken: Flowsheet accepted Encounter addended by: Marycarmen Corona RN on: 02/07/2024 10:59 AM Actions taken: Charge Capture section accepted documented in this encounter [facility] 02-07-2024 Note Encounter addended b y: Adriana Barbosa MA on: 02/07/2024 10:26 AM Actions taken: Flowsheet accepted [facility] 02-07-2024 Note Encounter addended b y: Marycarmen Corona RN on: 02/07/2024 10:59 AM Actions taken: Charge Capture section accepted [facility] 02-07-2024 Note Encounter addended b y: Adriana Barbosa MA on: 02/07/2024 10:26 AM Actions taken: Flowsheet accepted [facility] 02-07-2024 Note Encounter addended b y: Marycarmen Corona RN on: 02/07/2024 10:59 AM Actions taken: Charge Capture section accepted [facility] 02-07-2024 Note Encounter addended b y: Adriana Barbosa MA on: 02/07/2024 10:26 AM Actions taken: Flowsheet accepted [facility] 02-07-2024 Note Encounter addended b y: Marycarmen Corona RN on: 02/07/2024 10:59 AM Actions taken: Charge Capture section accepted [facility] 02-07-2024 Note Encounter addended b y: Adriana Barbosa MA on: 02/07/2024 10:26 AM Actions taken: Flowsheet accepted [facility] 02-07-2024 Note Encounter addended b y: Marycarmen Corona RN on: 02/07/2024 10:59 AM Actions taken: Charge Capture section accepted [facility] 02-07-2024 Note [facility] Wound Care Progress Note CHIEF COMPLAINT: Wound Care HISTORY OF PRESENT ILLNESS: The patient is a 63 y.o. male arrives for recheck wounds of R toes. Feels toes a bit better. REVIEW OF SYSTEMS: Review of Systems Constitutional: Negative. Negative for chills, fatigue and fever. See HPI Respiratory: Negative. Cardiovascular: Negative. Skin: Positive for wound. Negative for color change (from typical for patient) and rash. PHYSICAL EXAM: BP 100/69 (BP Location: Right arm, Patient Position: Sitting, BP Cuff Size: Adult) Pulse 89 Temp 36.6 ?C (97.8 ?F) (Temporal) Resp 18 Physical Exam Vitals reviewed. Constitutional: General: He is not in acute distress. Appearance: Normal appearance. He is not ill-appearing or toxic-appearing. HENT: Ears: Comments: Hearing to conversational voice is normal. Pulmonary: Effort: Pulmonary effort is normal. Breath sounds: No wheezing (No audible wheeze). Skin: General: Skin is warm and dry. Comments: Wounds of toes with maceration. Some callus. No evidence of cellulitis. See photos and measurements. Neurological: Mental Status: He is alert and oriented to person, place, and time. Psychiatric: Thought Content: Thought content normal. Wound/Incision 08/23/23 Lymphedema Toe - third Right;Dorsal (Active) Wound Image 02/07/24923 Site Assessment Granulation;[place];Swelling 02/07/24923 Carine-Wound Assessment [place];Moist 02/07/24923 Wound Length (cm) 1.4 cm 02/07/24923 Wound Width (cm) 3.5 cm 02/07/24923 Wound Surface Area (cm^2) 4.9 cm^2 02/07/24923 Wound Depth (cm) 0.1 cm 02/07/24923 Wound Volume (cm^3) 0.49 cm^3 02/07/24923 Wound Healing % -289 02/07/24923 Drainage Description Serosanguineous 02/07/24923 Odor None 02/07/24923 Drainage Amount Small 02/07/24923 Treatments Cleansed 02/07/24923 Primary Dressing Calcium alginate 01/31/24817 Secondary Dressing 4x4 gauze 01/31/24817 Secured with Kerlex;Paper tape 01/31/24817 Compression Multilayer compression wrap - 3 layers 01/31/24817 Dressing Status Clean, dry & intact;New dressing 01/10/24933 1. 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 Venous insufficiency (chronic) (peripheral) 3. Decreased mobility Pt ed, reassure Alginate to toes Continue MLCD on R Await determination for product. Reviewed s/s infection Recheck one wk, sooner prn Pt agrees with plan. Please see attached Discharge Instructions [facility] 01-31-2024 History of Present illness Narrative Images from the original note were not included. [facility] Wound Care Progress Note CHIEF COMPLAINT: Wound Care HISTORY OF PRESENT ILLNESS: The patient is a 63 y.o. male arrives for recheck wounds of R toes. Feels toes a bit better. REVIEW OF SYSTEMS: Review of Systems Constitutional: Negative. Negative for chills, fatigue and fever. See HPI Respiratory: Negative. Cardiovascular: Negative. Skin: Positive for wound. Negative for color change (from typical for patient) and rash. PHYSICAL EXAM: BP 106/74 (BP Location: Right arm, Patient Position: Sitting) Pulse 89 Temp 36.2 C (97.1 F) Resp 18 Physical Exam Vitals reviewed. Constitutional: General: He is not in acute distress. Appearance: Normal appearance. He is not ill-appearing or toxic-appearing. HENT: Ears: Comments: Hearing to conversational voice is normal. Pulmonary: Effort: Pulmonary effort is normal. Breath sounds: No wheezing (No audible wheeze). Skin: General: Skin is warm and dry. Comments: Wounds of toes with little maceration. Some callus. No evidence of cellulitis. See photos and measurements. Neurological: Mental Status: He is alert and oriented to person, place, and time. Psychiatric: Thought Content: Thought content normal. Wound/Incision 08/23/23 Lymphedema Toe - third Right;Dorsal (Active) Wound Image 01/31/24817 Site Assessment Granulation;[place] 01/31/24817 Carine-Wound Assessment Moist 01/31/24817 Wound Length (cm) 1 cm 01/31/24817 Wound Width (cm) 3.5 cm 01/31/24817 Wound Surface Area (cm^2) 3.5 cm^2 01/31/24817 Wound Depth (cm) 0.1 cm 01/31/24817 Wound Volume (cm^3) 0.35 cm^3 01/31/24817 Wound Healing % -178 01/31/24817 Drainage Description Serosanguineous 01/31/24817 Odor None 01/31/24817 Drainage Amount Small 01/31/24817 Treatments Cleansed 01/31/24817 Primary Dressing Calcium alginate 01/31/24817 Secondary Dressing 4x4 gauze 01/31/24817 Secured with Kerlex;Paper tape 01/31/24817 Compression Multilayer compression wrap - 3 layers 01/31/24817 Dressing Status Clean, dry & intact;New dressing 01/10/24 09 1. 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 Venous insufficiency (chronic) (peripheral) 3. Decreased mobility Pt ed, reassure Alginate to toes Continue MLCD on R Await determination for product. Reviewed s/s infection Recheck one wk, sooner prn Pt agrees with plan. Please see attached Discharge Instructions documented in this encounter [facility] 01-31-2024 History of Present illness Narrative Images from the original note were not included. [facility] Wound Care Progress Note CHIEF COMPLAINT: Wound Care HISTORY OF PRESENT ILLNESS: The patient is a 63 y.o. male arrives for recheck wounds of R toes. Feels toes a bit better. REVIEW OF SYSTEMS: Review of Systems Constitutional: Negative. Negative for chills, fatigue and fever. See HPI Respiratory: Negative. Cardiovascular: Negative. Skin: Positive for wound. Negative for color change (from typical for patient) and rash. PHYSICAL EXAM: BP 106/74 (BP Location: Right arm, Patient Position: Sitting) Pulse 89 Temp 36.2 C (97.1 F) Resp 18 Physical Exam Vitals reviewed. Constitutional: General: He is not in acute distress. Appearance: Normal appearance. He is not ill-appearing or toxic-appearing. HENT: Ears: Comments: Hearing to conversational voice is normal. Pulmonary: Effort: Pulmonary effort is normal. Breath sounds: No wheezing (No audible wheeze). Skin: General: Skin is warm and dry. Comments: Wounds of toes with little maceration. Some callus. No evidence of cellulitis. See photos and measurements. Neurological: Mental Status: He is alert and oriented to person, place, and time. Psychiatric: Thought Content: Thought content normal. Wound/Incision 08/23/23 Lymphedema Toe - third Right;Dorsal (Active) Wound Image 01/31/24817 Site Assessment Granulation;[place] 01/31/24817 Carine-Wound Assessment Moist 01/31/24817 Wound Length (cm) 1 cm 01/31/24817 Wound Width (cm) 3.5 cm 01/31/24817 Wound Surface Area (cm^2) 3.5 cm^2 01/31/24817 Wound Depth (cm) 0.1 cm 01/31/24817 Wound Volume (cm^3) 0.35 cm^3 01/31/24817 Wound Healing % -178 01/31/24817 Drainage Description Serosanguineous 01/31/24817 Odor None 01/31/24817 Drainage Amount Small 01/31/24817 Treatments Cleansed 01/31/24817 Primary Dressing Calcium alginate 01/31/24817 Secondary Dressing 4x4 gauze 01/31/24817 Secured with Kerlex;Paper tape 01/31/24817 Compression Multilayer compression wrap - 3 layers 01/31/24817 Dressing Status Clean, dry & intact;New dressing 01/10/24933 1. 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 Venous insufficiency (chronic) (peripheral) 3. Decreased mobility Pt ed, reassure Alginate to toes Continue MLCD on R Await determination for product. Reviewed s/s infection Recheck one wk, sooner prn Pt agrees with plan. Please see attached Discharge Instructions documented in this encounter [facility] 01-31-2024 Hospital Discharge instructions Giuliana Radford RN - 01/31/2024 8:45 AM EDT Return Appointment in: 1 week - Should you experience any significant changes in your wound(s) or have any questions regarding your home care instructions please contact the wound center at [phone] If after regular business hours, please call your family doctor or local emergency room. Edema Control: Elevate legs to the level of the heart or above for 30 minutes daily and/or when sitting Additional Orders/Instructions: Follow diet per physicians instructions - such as increasing protein intake to promote wound healing. Please begin including a protein supplement/shake to patient's diet to help with wound healing Take antibiotic as directed Nursing Care Facility: [facility] Wound Treatment to R toes- Daily Cleanse wound with mild soap and water and pat dry. Apply Calcium Alginate Apply dry dressing to cover the wound and secure with tape. Wound Treatment to RLE: Weekly Cleanse wound with mild soap and water and pat dry. Apply Calcium Alginate Apply Profore light Do not get wet. OK to shower if wound dressing covered Apply Barrier Cream to bilateral buttocks and sacral area daily and PRN. documented in this encounter [facility] 01-31-2024 Hospital Discharge instructions Giuliana Radford RN - 01/31/2024 8:45 AM EDT Return Appointment in: 1 week - Should you experience any significant changes in your wound(s) or have any questions regarding your home care instructions please contact the wound center at [phone] If after regular business hours, please call your family doctor or local emergency room. Edema Control: Elevate legs to the level of the heart or above for 30 minutes daily and/or when sitting Additional Orders/Instructions: Follow diet per physicians instructions - such as increasing protein intake to promote wound healing. Please begin including a protein supplement/shake to patient's diet to help with wound healing Take antibiotic as directed Nursing Care Facility: [facility] Wound Treatment to R toes- Daily Cleanse wound with mild soap and water and pat dry. Apply Calcium Alginate Apply dry dressing to cover the wound and secure with tape. Wound Treatment to RLE: Weekly Cleanse wound with mild soap and water and pat dry. Apply Calcium Alginate Apply Profore light Do not get wet. OK to shower if wound dressing covered Apply Barrier Cream to bilateral buttocks and sacral area daily and PRN. documented in this encounter [facility] 01-31-2024 Miscellaneous Notes Encounter addended by: Marycarmen Corona RN on: 02/02/2024 10:55 AM Actions taken: Charge Capture section accepted documented in this encounter [facility] 01-31-2024 Note Encounter addended b y: Marycarmen Corona RN on: 02/02/2024 10:55 AM Actions taken: Charge Capture section accepted [facility] 01-31-2024 Note [facility] Wound Care Progress Note CHIEF COMPLAINT: Wound Care HISTORY OF PRESENT ILLNESS: The patient is a 63 y.o. male arrives for recheck wounds of R toes. Feels toes a bit better. REVIEW OF SYSTEMS: Review of Systems Constitutional: Negative. Negative for chills, fatigue and fever. See HPI Respiratory: Negative. Cardiovascular: Negative. Skin: Positive for wound. Negative for color change (from typical for patient) and rash. PHYSICAL EXAM: BP 106/74 (BP Location: Right arm, Patient Position: Sitting) Pulse 89 Temp 36.2 ?C (97.1 ?F) Resp 18 Physical Exam Vitals reviewed. Constitutional: General: He is not in acute distress. Appearance: Normal appearance. He is not ill-appearing or toxic-appearing. HENT: Ears: Comments: Hearing to conversational voice is normal. Pulmonary: Effort: Pulmonary effort is normal. Breath sounds: No wheezing (No audible wheeze). Skin: General: Skin is warm and dry. Comments: Wounds of toes with little maceration. Some callus. No evidence of cellulitis. See photos and measurements. Neurological: Mental Status: He is alert and oriented to person, place, and time. Psychiatric: Thought Content: Thought content normal. Wound/Incision 08/23/23 Lymphedema Toe - third Right;Dorsal (Active) Wound Image 01/31/24817 Site Assessment Granulation;Pale;[place] 01/31/24817 Carine-Wound Assessment Moist 01/31/24817 Wound Length (cm) 1 cm 01/31/24817 Wound Width (cm) 3.5 cm 01/31/24817 Wound Surface Area (cm^2) 3.5 cm^2 01/31/24817 Wound Depth (cm) 0.1 cm 01/31/24817 Wound Volume (cm^3) 0.35 cm^3 01/31/24817 Wound Healing % -178 01/31/24817 Drainage Description Serosanguineous 01/31/24817 Odor None 01/31/24817 Drainage Amount Small 01/31/24817 Treatments Cleansed 01/31/24817 Primary Dressing Calcium alginate 01/31/24817 Secondary Dressing 4x4 gauze 01/31/24817 Secured with Kerlex;Paper tape 01/31/24817 Compression Multilayer compression wrap - 3 layers 01/31/24817 Dressing Status Clean, dry & intact;New dressing 01/10/24 0934 1. 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 Venous insufficiency (chronic) (peripheral) 3. Decreased mobility Pt ed, reassure Alginate to toes Continue MLCD on R Await determination for product. Reviewed s/s infection Recheck one wk, sooner prn Pt agrees with plan. Please see attached Discharge Instructions [facility] 01-24-2024 History of Present illness Narrative Images from the original note were not included. [facility] Wound Care Progress Note CHIEF COMPLAINT: Wound Care HISTORY OF PRESENT ILLNESS: The patient is a 63 y.o. male arrives for recheck wounds of R toes. Feels toes a bit better. REVIEW OF SYSTEMS: Review of Systems Constitutional: Negative. Negative for chills, fatigue and fever. See HPI Respiratory: Negative. Cardiovascular: Negative. Skin: Positive for wound. Negative for color change (from typical for patient) and rash. PHYSICAL EXAM: BP 110/78 Pulse 89 Temp 36 C (96.8 F) Resp 18 Physical Exam Vitals reviewed. Constitutional: General: He is not in acute distress. Appearance: Normal appearance. He is not ill-appearing or toxic-appearing. HENT: Ears: Comments: Hearing to conversational voice is normal. Pulmonary: Effort: Pulmonary effort is normal. Breath sounds: No wheezing (No audible wheeze). Skin: General: Skin is warm and dry. Comments: Wounds of toes with little maceration. Some callus. No evidence of cellulitis. See photos and measurements. Neurological: Mental Status: He is alert and oriented to person, place, and time. Psychiatric: Thought Content: Thought content normal. Wound/Incision 08/23/23 Lymphedema Toe - third Right;Dorsal (Active) Wound Image 01/24/24 1026 Site Assessment Granulation 01/24/24 1026 Carine-Wound Assessment Moist 01/24/24 1026 Wound Length (cm) 1.2 cm 01/24/24 1026 Wound Width (cm) 3.5 cm 01/24/24 1026 Wound Surface Area (cm^2) 4.2 cm^2 01/24/24 1026 Wound Depth (cm) 0.2 cm 01/24/24 1026 Wound Volume (cm^3) 0.84 cm^3 01/24/24 1026 Wound Healing % -567 01/24/24 1026 Drainage Description Serosanguineous 01/24/24 1026 Odor None 01/24/24 1026 Drainage Amount Small 01/24/24 1026 Treatments Cleansed 01/24/24 1026 Primary Dressing Alginate 01/17/24 1005 Secondary Dressing 4x4 gauze 01/17/24 1005 Secured with Kerlex;Silk tape 01/17/24 1005 Compression Double Layer tubigrip 11/08/23 1000 Dressing Status Clean, dry & intact;New dressing 01/10/24 0934 Wound/Incision 11/15/23 Venous Ulcer Leg Right;Lower;Lateral (Active) Wound Image 01/24/24 1024 Site Assessment Dry 01/24/24 1024 Carine-Wound Assessment Dry 01/24/24 1024 Wound Length (cm) 0 cm 01/24/24 1024 Wound Width (cm) 0 cm 01/24/24 1024 Wound Surface Area (cm^2) 0 cm^2 01/24/24 1024 Wound Depth (cm) 0 cm 01/24/24 1024 Wound Volume (cm^3) 0 cm^3 01/24/24 1024 Wound Healing % 100 01/24/24 1024 Drainage Description Red;Serosanguineous 01/17/24 1003 Odor None 01/24/24 1024 Drainage Amount None 01/24/24 1024 Treatments Cleansed 01/24/24 1024 Primary Dressing Alginate 01/17/24 1005 Secondary Dressing 4x4 gauze 01/17/24 1005 Secured with Kerlex;Silk tape 01/17/24 1005 Compression Multilayer compression wrap - 3 layers 01/17/24 1005 Dressing Status New dressing;Clean, dry & intact 01/10/24 0936 1. 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 Venous insufficiency (chronic) (peripheral) 3. Decreased mobility Pt ed, reassure Alginate to toes Continue MLCD on R Await determination for product. Reviewed s/s infection Reviewed activity/compression/elevation Reviewed protein/nutrition Recheck one wk, sooner prn Pt agrees with plan. Please see attached Discharge Instructions documented in this encounter [facility] 01-24-2024 History of Present illness Narrative Images from the original note were not included. [facility] Wound Care Progress Note CHIEF COMPLAINT: Wound Care HISTORY OF PRESENT ILLNESS: The patient is a 63 y.o. male arrives for recheck wounds of R toes. Feels toes a bit better. REVIEW OF SYSTEMS: Review of Systems Constitutional: Negative. Negative for chills, fatigue and fever. See HPI Respiratory: Negative. Cardiovascular: Negative. Skin: Positive for wound. Negative for color change (from typical for patient) and rash. PHYSICAL EXAM: BP 110/78 Pulse 89 Temp 36 C (96.8 F) Resp 18 Physical Exam Vitals reviewed. Constitutional: General: He is not in acute distress. Appearance: Normal appearance. He is not ill-appearing or toxic-appearing. HENT: Ears: Comments: Hearing to conversational voice is normal. Pulmonary: Effort: Pulmonary effort is normal. Breath sounds: No wheezing (No audible wheeze). Skin: General: Skin is warm and dry. Comments: Wounds of toes with little maceration. Some callus. No evidence of cellulitis. See photos and measurements. Neurological: Mental Status: He is alert and oriented to person, place, and time. Psychiatric: Thought Content: Thought content normal. Wound/Incision 08/23/23 Lymphedema Toe - third Right;Dorsal (Active) Wound Image 01/24/24 1026 Site Assessment Granulation 01/24/24 1026 Carine-Wound Assessment Moist 01/24/24 1026 Wound Length (cm) 1.2 cm 01/24/24 1026 Wound Width (cm) 3.5 cm 01/24/24 1026 Wound Surface Area (cm^2) 4.2 cm^2 01/24/24 1026 Wound Depth (cm) 0.2 cm 01/24/24 1026 Wound Volume (cm^3) 0.84 cm^3 01/24/24 1026 Wound Healing % -567 01/24/24 1026 Drainage Description Serosanguineous 01/24/24 1026 Odor None 01/24/24 1026 Drainage Amount Small 01/24/24 1026 Treatments Cleansed 01/24/24 1026 Primary Dressing Alginate 01/17/24 1005 Secondary Dressing 4x4 gauze 01/17/24 1005 Secured with Kerlex;Silk tape 01/17/24 1005 Compression Double Layer tubigrip 11/08/23 1000 Dressing Status Clean, dry & intact;New dressing 01/10/24 0934 Wound/Incision 11/15/23 Venous Ulcer Leg Right;Lower;Lateral (Active) Wound Image 01/24/24 1024 Site Assessment Dry 01/24/24 1024 Carine-Wound Assessment Dry 01/24/24 1024 Wound Length (cm) 0 cm 01/24/24 1024 Wound Width (cm) 0 cm 01/24/24 1024 Wound Surface Area (cm^2) 0 cm^2 01/24/24 1024 Wound Depth (cm) 0 cm 01/24/24 1024 Wound Volume (cm^3) 0 cm^3 01/24/24 1024 Wound Healing % 100 01/24/24 1024 Drainage Description Red;Serosanguineous 01/17/24 1003 Odor None 01/24/24 1024 Drainage Amount None 01/24/24 1024 Treatments Cleansed 01/24/24 1024 Primary Dressing Alginate 01/17/24 1005 Secondary Dressing 4x4 gauze 01/17/24 1005 Secured with Kerlex;Silk tape 01/17/24 1005 Compression Multilayer compression wrap - 3 layers 01/17/24 1005 Dressing Status New dressing;Clean, dry & intact 01/10/24 0936 1. 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 Venous insufficiency (chronic) (peripheral) 3. Decreased mobility Pt ed, reassure Alginate to toes Continue MLCD on R Await determination for product. Reviewed s/s infection Reviewed activity/compression/elevation Reviewed protein/nutrition Recheck one wk, sooner prn Pt agrees with plan. Please see attached Discharge Instructions documented in this encounter [facility] 01-24-2024 Hospital Discharge instructions Giuliana Radford RN - 01/24/2024 10:00 AM EDT Return Appointment in: 1 week - Should you experience any significant changes in your wound(s) or have any questions regarding your home care instructions please contact the wound center at [phone] If after regular business hours, please call your family doctor or local emergency room. Edema Control: Elevate legs to the level of the heart or above for 30 minutes daily and/or when sitting Additional Orders/Instructions: Follow diet per physicians instructions - such as increasing protein intake to promote wound healing. Please begin including a protein supplement/shake to patient's diet to help with wound healing Take antibiotic as directed Nursing Care Facility: [facility] Wound Treatment to R toes- Daily Cleanse wound with mild soap and water and pat dry. Apply Calcium Alginate Apply dry dressing to cover the wound and secure with tape. Wound Treatment to RLE: Weekly Cleanse wound with mild soap and water and pat dry. Apply Calcium Alginate Apply Profore light Do not get wet. OK to shower if wound dressing covered Apply Barrier Cream to bilateral buttocks and sacral area daily and PRN. documented in this encounter [facility] 01-24-2024 Hospital Discharge instructions Giuliana Radford RN - 01/24/2024 10:00 AM EDT Return Appointment in: 1 week - Should you experience any significant changes in your wound(s) or have any questions regarding your home care instructions please contact the wound center at [phone] If after regular business hours, please call your family doctor or local emergency room. Edema Control: Elevate legs to the level of the heart or above for 30 minutes daily and/or when sitting Additional Orders/Instructions: Follow diet per physicians instructions - such as increasing protein intake to promote wound healing. Please begin including a protein supplement/shake to patient's diet to help with wound healing Take antibiotic as directed Nursing Care Facility: [facility] Wound Treatment to R toes- Daily Cleanse wound with mild soap and water and pat dry. Apply Calcium Alginate Apply dry dressing to cover the wound and secure with tape. Wound Treatment to RLE: Weekly Cleanse wound with mild soap and water and pat dry. Apply Calcium Alginate Apply Profore light Do not get wet. OK to shower if wound dressing covered Apply Barrier Cream to bilateral buttocks and sacral area daily and PRN. documented in this encounter [facility] 01-24-2024 Miscellaneous Notes Encounter addended by: Sharla Beard LPN on: 01/24/2024 10:57 AM Actions taken: Flowsheet accepted, Follow-up modified documented in this encounter [facility] 01-24-2024 Miscellaneous Notes Encounter addended by: Sharla Beard LPN on: 01/24/2024 10:57 AM Actions taken: Flowsheet accepted, Follow-up modified Encounter addended by: Marycarmen Corona RN on: 01/30/2024 3:44 PM Actions taken: LDA properties accepted, Charge Capture section accepted documented in this encounter [facility] 01-24-2024 Note Encounter addended b y: Sharla Beard LPN on: 01/24/2024 10:57 AM Actions taken: Flowsheet accepted, Follow-up modified [facility] 01-24-2024 Note Encounter addended b y: Sharla Beard LPN on: 01/24/2024 10:57 AM Actions taken: Flowsheet accepted, Follow-up modified [facility] 01-24-2024 Note Encounter addended b y: Sharla Beard LPN on: 01/24/2024 10:57 AM Actions taken: Flowsheet accepted, Follow-up modified [facility] 01-24-2024 Note Encounter addended b y: Sharla Beard LPN on: 01/24/2024 10:57 AM Actions taken: Flowsheet accepted, Follow-up modified [facility] 01-24-2024 Note Encounter addended b y: Marycarmen Corona RN on: 01/30/2024 3:44 PM Actions taken: LDA properties accepted, Charge Capture section accepted [facility] 01-24-2024 Note Encounter addended b y: Sharla Beard LPN on: 01/24/2024 10:57 AM Actions taken: Flowsheet accepted, Follow-up modified [facility] 01-24-2024 Note [facility] Wound Care Progress Note CHIEF COMPLAINT: Wound Care HISTORY OF PRESENT ILLNESS: The patient is a 63 y.o. male arrives for recheck wounds of R toes. Feels toes a bit better. REVIEW OF SYSTEMS: Review of Systems Constitutional: Negative. Negative for chills, fatigue and fever. See HPI Respiratory: Negative. Cardiovascular: Negative. Skin: Positive for wound. Negative for color change (from typical for patient) and rash. PHYSICAL EXAM: BP 110/78 Pulse 89 Temp 36 ?C (96.8 ?F) Resp 18 Physical Exam Vitals reviewed. Constitutional: General: He is not in acute distress. Appearance: Normal appearance. He is not ill-appearing or toxic-appearing. HENT: Ears: Comments: Hearing to conversational voice is normal. Pulmonary: Effort: Pulmonary effort is normal. Breath sounds: No wheezing (No audible wheeze). Skin: General: Skin is warm and dry. Comments: Wounds of toes with little maceration. Some callus. No evidence of cellulitis. See photos and measurements. Neurological: Mental Status: He is alert and oriented to person, place, and time. Psychiatric: Thought Content: Thought content normal. Wound/Incision 08/23/23 Lymphedema Toe - third Right;Dorsal (Active) Wound Image 01/24/24 1026 Site Assessment Granulation 01/24/24 1026 Carine-Wound Assessment Moist 01/24/24 1026 Wound Length (cm) 1.2 cm 01/24/24 1026 Wound Width (cm) 3.5 cm 01/24/24 1026 Wound Surface Area (cm^2) 4.2 cm^2 01/24/24 1026 Wound Depth (cm) 0.2 cm 01/24/24 1026 Wound Volume (cm^3) 0.84 cm^3 01/24/24 1026 Wound Healing % -567 01/24/24 1026 Drainage Description Serosanguineous 01/24/24 1026 Odor None 01/24/24 1026 Drainage Amount Small 01/24/24 1026 Treatments Cleansed 01/24/24 1026 Primary Dressing Alginate 01/17/24 1005 Secondary Dressing 4x4 gauze 01/17/24 1005 Secured with Kerlex;Silk tape 01/17/24 1005 Compression Double Layer tubigrip 11/08/23 1000 Dressing Status Clean, dry & intact;New dressing 01/10/24 0934 Wound/Incision 11/15/23 Venous Ulcer Leg Right;Lower;Lateral (Active) Wound Image 01/24/24 1024 Site Assessment Dry 01/24/24 1024 Carine-Wound Assessment Dry 01/24/24 1024 Wound Length (cm) 0 cm 01/24/24 1024 Wound Width (cm) 0 cm 01/24/24 1024 Wound Surface Area (cm^2) 0 cm^2 01/24/24 1024 Wound Depth (cm) 0 cm 01/24/24 1024 Wound Volume (cm^3) 0 cm^3 01/24/24 1024 Wound Healing % 100 01/24/24 1024 Drainage Description Red;Serosanguineous 01/17/24 1003 Odor None 01/24/24 1024 Drainage Amount None 01/24/24 1024 Treatments Cleansed 01/24/24 1024 Primary Dressing Alginate 01/17/24 1005 Secondary Dressing 4x4 gauze 01/17/24 1005 Secured with Kerlex;Silk tape 01/17/24 1005 Compression Multilayer compression wrap - 3 layers 01/17/24 1005 Dressing Status New dressing;Clean, dry & intact 01/10/24 0936 1. 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 Venous insufficiency (chronic) (peripheral) 3. Decreased mobility Pt ed, reassure Alginate to toes Continue MLCD on R Await determination for product. Reviewed s/s infection Reviewed activity/compression/elevation Reviewed protein/nutrition Recheck one wk, sooner prn Pt agrees with plan. Please see attached Discharge Instructions [facility] 01-17-2024 History of Present illness Narrative Images from the original note were not included. [facility] Wound Care Progress Note CHIEF COMPLAINT: Wound Care HISTORY OF PRESENT ILLNESS: The patient is a 63 y.o. male arrives for recheck wounds of R toes. Feels toes a bit better. REVIEW OF SYSTEMS: Review of Systems Constitutional: Negative. Negative for chills, fatigue and fever. See HPI Respiratory: Negative. Cardiovascular: Negative. Skin: Positive for wound. Negative for color change (from typical for patient) and rash. PHYSICAL EXAM: BP (!) 131/93 (BP Location: Left arm, Patient Position: Sitting, BP Cuff Size: Adult) Pulse 91 Temp 36.4 C (97.5 F) (Temporal) Resp 20 Physical Exam Vitals reviewed. Constitutional: General: He is not in acute distress. Appearance: Normal appearance. He is not ill-appearing or toxic-appearing. HENT: Ears: Comments: Hearing to conversational voice is normal. Pulmonary: Effort: Pulmonary effort is normal. Breath sounds: No wheezing (No audible wheeze). Skin: General: Skin is warm and dry. Comments: Wounds of toes with little maceration. Some callus. No evidence of cellulitis. See photos and measurements. Neurological: Mental Status: He is alert and oriented to person, place, and time. Psychiatric: Thought Content: Thought content normal. Wound/Incision 08/23/23 Lymphedema Toe - third Right;Anterior (Active) Wound Image 01/17/24 1005 Site Assessment Granulation;[place] 01/17/24 1005 Carine-Wound Assessment Calloused;Moist 01/17/24 1005 Wound Length (cm) 1.4 cm 01/17/24 1005 Wound Width (cm) 3.5 cm 01/17/24 1005 Wound Surface Area (cm^2) 4.9 cm^2 01/17/24 1005 Wound Depth (cm) 0.2 cm 01/17/24 1005 Wound Volume (cm^3) 0.98 cm^3 01/17/24 1005 Wound Healing % -678 01/17/24 1005 Drainage Description Serosanguineous 01/17/24 1005 Odor None 01/17/24 1005 Drainage Amount Small 01/17/24 1005 Treatments Cleansed 01/17/24 1005 Primary Dressing Alginate 01/17/24 1005 Secondary Dressing 4x4 gauze 01/17/24 1005 Secured with Kerlex;Silk tape 01/17/24 1005 Compression Double Layer tubigrip 11/08/23 1000 Dressing Status Clean, dry & intact;New dressing 01/10/24 09 Wound/Incision 11/15/23 Venous Ulcer Leg Right;Lower;Anterior;Lateral (Active) Wound Image 01/17/24 1003 Site Assessment Bleeding 01/17/24 100 Carine-Wound Assessment Dry;Intact 01/17/24 1003 Wound Length (cm) 1.1 cm 01/17/24 1003 Wound Width (cm) 1.8 cm 01/17/24 1003 Wound Surface Area (cm^2) 1.98 cm^2 01/17/24 1003 Wound Depth (cm) 0.1 cm 01/17/24 1003 Wound Volume (cm^3) 0.198 cm^3 01/17/24 1003 Wound Healing % 98 01/17/24 1003 Drainage Description Red;Serosanguineous 01/17/24 1003 Odor None 01/17/24 1003 Drainage Amount Small 01/17/24 1003 Treatments Cleansed 01/17/24 1003 Primary Dressing Alginate 01/17/24 1005 Secondary Dressing 4x4 gauze 01/17/24 1005 Secured with Kerlex;Silk tape 01/17/24 1005 Compression Multilayer compression wrap - 3 layers 01/17/24 100 Dressing Status New dressing;Clean, dry & intact 01/10/24 09 1. 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 Venous insufficiency (chronic) (peripheral) 3. Decreased mobility Pt ed, reassure Alginate to toes Continue MLCD on R Submit for different advanced product Reviewed s/s infection Reviewed activity/compression/elevation Reviewed protein/nutrition Recheck one wk, sooner prn Pt agrees with plan. PLAN: Patient examined and evaluated. Patient understands all that has been explained and wishes to proceed with current treatment. Patient understands all risks, benefits, procedures, carine-operative management, and possible complications. All questions answered and no guarantees made or implied. Please see attached Discharge Instructions documented in this encounter [facility] 01-17-2024 Hospital Discharge instructions Giuliana Radford RN - 01/17/2024 9:45 AM EDT Return Appointment in: 1 week - Should you experience any significant changes in your wound(s) or have any questions regarding your home care instructions please contact the wound center at [phone] If after regular business hours, please call your family doctor or local emergency room. Edema Control: Elevate legs to the level of the heart or above for 30 minutes daily and/or when sitting Additional Orders/Instructions: Follow diet per physicians instructions - such as increasing protein intake to promote wound healing. Please begin including a protein supplement/shake to patient's diet to help with wound healing Take antibiotic as directed Nursing Care Facility: [facility] Wound Treatment to R toes- Daily Cleanse wound with mild soap and water and pat dry. Apply Calcium Alginate Apply dry dressing to cover the wound and secure with tape. Wound Treatment to RLE: Weekly Cleanse wound with mild soap and water and pat dry. Apply Calcium Alginate Apply Profore light Do not get wet. OK to shower if wound dressing covered Apply Barrier Cream to bilateral buttocks and sacral area daily and PRN. documented in this encounter [facility] 01-17-2024 Note [facility] Wound Care Progress Note CHIEF COMPLAINT: Wound Care HISTORY OF PRESENT ILLNESS: The patient is a 63 y.o. male arrives for recheck wounds of R toes. Feels toes a bit better. REVIEW OF SYSTEMS: Review of Systems Constitutional: Negative. Negative for chills, fatigue and fever. See HPI Respiratory: Negative. Cardiovascular: Negative. Skin: Positive for wound. Negative for color change (from typical for patient) and rash. PHYSICAL EXAM: BP (!) 131/93 (BP Location: Left arm, Patient Position: Sitting, BP Cuff Size: Adult) Pulse 91 Temp 36.4 ?C (97.5 ?F) (Temporal) Resp 20 Physical Exam Vitals reviewed. Constitutional: General: He is not in acute distress. Appearance: Normal appearance. He is not ill-appearing or toxic-appearing. HENT: Ears: Comments: Hearing to conversational voice is normal. Pulmonary: Effort: Pulmonary effort is normal. Breath sounds: No wheezing (No audible wheeze). Skin: General: Skin is warm and dry. Comments: Wounds of toes with little maceration. Some callus. No evidence of cellulitis. See photos and measurements. Neurological: Mental Status: He is alert and oriented to person, place, and time. Psychiatric: Thought Content: Thought content normal. Wound/Incision 08/23/23 Lymphedema Toe - third Right;Anterior (Active) Wound Image 01/17/24 1005 Site Assessment Granulation;[place] 01/17/24 1005 Carine-Wound Assessment Calloused;Moist 01/17/24 1005 Wound Length (cm) 1.4 cm 01/17/24 1005 Wound Width (cm) 3.5 cm 01/17/24 1005 Wound Surface Area (cm^2) 4.9 cm^2 01/17/24 1005 Wound Depth (cm) 0.2 cm 01/17/24 1005 Wound Volume (cm^3) 0.98 cm^3 01/17/24 1005 Wound Healing % -678 01/17/24 1005 Drainage Description Serosanguineous 01/17/24 1005 Odor None 01/17/24 1005 Drainage Amount Small 01/17/24 1005 Treatments Cleansed 01/17/24 1005 Primary Dressing Alginate 01/17/24 1005 Secondary Dressing 4x4 gauze 01/17/24 1005 Secured with Kerlex;Silk tape 01/17/24 1005 Compression Double Layer tubigrip 11/08/23 1000 Dressing Status Clean, dry & intact;New dressing 01/10/24 09 Wound/Incision 11/15/23 Venous Ulcer Leg Right;Lower;Anterior;Lateral (Active) Wound Image 01/17/24 100 Site Assessment Bleeding 01/17/24 100 Carine-Wound Assessment Dry;Intact 01/17/241002 Wound Length (cm) 1.1 cm 01/17/241002 Wound Width (cm) 1.8 cm 01/17/24 100 Wound Surface Area (cm^2) 1.98 cm^2 01/17/24 1003 Wound Depth (cm) 0.1 cm 01/17/24 100 Wound Volume (cm^3) 0.198 cm^3 01/17/24 1003 Wound Healing % 98 01/17/24 1003 Drainage Description Red;Serosanguineous 01/17/243 Odor None 01/17/241002 Drainage Amount Small 01/17/241002 Treatments Cleansed 01/17/241002 Primary Dressing Alginate 01/17/241004 Secondary Dressing 4x4 gauze 01/17/241004 Secured with Kerlex;Silk tape 01/17/241004 Compression Multilayer compression wrap - 3 layers 01/17/241004 Dressing Status New dressing;Clean, dry & intact 01/10/24935 1. 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 Venous insufficiency (chronic) (peripheral) 3. Decreased mobility Pt ed, reassure Alginate to toes Continue MLCD on R Submit for different advanced product Reviewed s/s infection Reviewed activity/compression/elevation Reviewed protein/nutrition Recheck one wk, sooner prn Pt agrees with plan. PLAN: Patient examined and evaluated. Patient understands all that has been explained and wishes to proceed with current treatment. Patient understands all risks, benefits, procedures, carine-operative management, and possible complications. All questions answered and no guarantees made or implied. Please see attached Discharge Instructions [facility] 01-10-2024 History of Present illness Narrative Images from the original note were not included. [facility] Wound Care Progress Note CHIEF COMPLAINT: Wound Care HISTORY OF PRESENT ILLNESS: The patient is a 63 y.o. male arrives for recheck wounds of R toes. Feels toes about the same. REVIEW OF SYSTEMS: Review of Systems Constitutional: Negative. Negative for chills, fatigue and fever. See HPI Respiratory: Negative. Cardiovascular: Negative. Skin: Positive for wound. Negative for color change (from typical for patient) and rash. PHYSICAL EXAM: BP 121/78 Pulse 92 Temp 36.3 C (97.3 F) Resp 18 Physical Exam Vitals reviewed. Constitutional: General: He is not in acute distress. Appearance: Normal appearance. He is not ill-appearing or toxic-appearing. HENT: Ears: Comments: Hearing to conversational voice is normal. Pulmonary: Effort: Pulmonary effort is normal. Breath sounds: No wheezing (No audible wheeze). Skin: General: Skin is warm and dry. Comments: Wounds of toes with little maceration. Some callus. No evidence of cellulitis. See photos and measurements. Neurological: Mental Status: He is alert and oriented to person, place, and time. Psychiatric: Thought Content: Thought content normal. Wound/Incision 08/23/23 Lymphedema Toe - third Right;Anterior (Active) Wound Image 01/10/24 09 Site Assessment Granulation;[place] 01/10/24933 Carine-Wound Assessment Maceration 01/10/24 09 Wound Length (cm) 1.5 cm 01/10/24933 Wound Width (cm) 3.5 cm 01/10/24 09 Wound Surface Area (cm^2) 5.25 cm^2 01/10/24 09 Wound Depth (cm) 0.2 cm 01/10/24 09 Wound Volume (cm^3) 1.05 cm^3 01/10/24 09 Wound Healing % -733 01/10/24933 Drainage Description Serosanguineous 01/10/24 09 Odor None 01/10/24933 Drainage Amount Small 01/10/24933 Treatments Cleansed 01/10/24 0934 Primary Dressing Alginate 01/03/24 1600 Secondary Dressing 4x4 gauze 01/03/24 1600 Secured with Conforming kerlex;Silk tape 01/03/24 1600 Compression Double Layer tubigrip 11/08/23 1000 Dressing Status New dressing;Clean, dry & intact 12/27/23 1341 Wound/Incision 11/15/23 Venous Ulcer Leg Right;Lower;Anterior;Lateral (Active) Wound Image 01/10/24935 Site Assessment Dry;[place] 01/10/24935 Carine-Wound Assessment Dry 01/10/24935 Wound Length (cm) 0.7 cm 01/10/24935 Wound Width (cm) 0.5 cm 01/10/24935 Wound Surface Area (cm^2) 0.35 cm^2 01/10/24935 Wound Depth (cm) 0.1 cm 01/10/24935 Wound Volume (cm^3) 0.035 cm^3 01/10/24935 Wound Healing % 100 01/10/24935 Drainage Description Serosanguineous 01/10/24935 Odor None 01/10/24935 Drainage Amount Scant 01/10/24935 Treatments Cleansed 01/10/24935 Primary Dressing Alginate 01/03/24 1600 Secondary Dressing 4x4 gauze 01/03/24 1600 Secured with Silk tape;Kerlex 01/03/24 1600 Compression Multilayer compression wrap - 3 layers 01/03/24 1600 Dressing Status Clean, dry & intact;New dressing 12/27/23 1340 1. 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 Venous insufficiency (chronic) (peripheral) 3. Decreased mobility Pt ed, reassure Alginate to toes Continue MLCD on R Submit for advanced product Reviewed s/s infection Reviewed activity/compression/elevation Reviewed protein/nutrition Recheck one wk, sooner prn Pt agrees with plan. PLAN: Patient examined and evaluated. Patient understands all that has been explained and wishes to proceed with current treatment. Patient understands all risks, benefits, procedures, carine-operative management, and possible complications. All questions answered and no guarantees made or implied. Please see attached Discharge Instructions documented in this encounter [facility] 01-10-2024 Hospital Discharge instructions Giuliana Radford RN - 01/10/2024 9:15 AM EDT Return Appointment in: 1 week - Should you experience any significant changes in your wound(s) or have any questions regarding your home care instructions please contact the wound center at [phone] If after regular business hours, please call your family doctor or local emergency room. Edema Control: Elevate legs to the level of the heart or above for 30 minutes daily and/or when sitting Additional Orders/Instructions: Follow diet per physicians instructions - such as increasing protein intake to promote wound healing. Please begin including a protein supplement/shake to patient's diet to help with wound healing Take antibiotic as directed Nursing Care Facility: [facility] Wound Treatment to R toes- Daily Cleanse wound with mild soap and water and pat dry. Apply Calcium Alginate Apply dry dressing to cover the wound and secure with tape. Wound Treatment to RLE: Weekly Cleanse wound with mild soap and water and pat dry. Apply Calcium Alginate Apply Profore light Do not get wet. OK to shower if wound dressing covered Apply Barrier Cream to bilateral buttocks and sacral area daily and PRN. documented in this encounter [facility] 01-10-2024 Note [facility] Wound Care Progress Note CHIEF COMPLAINT: Wound Care HISTORY OF PRESENT ILLNESS: The patient is a 63 y.o. male arrives for recheck wounds of R toes. Feels toes about the same. REVIEW OF SYSTEMS: Review of Systems Constitutional: Negative. Negative for chills, fatigue and fever. See HPI Respiratory: Negative. Cardiovascular: Negative. Skin: Positive for wound. Negative for color change (from typical for patient) and rash. PHYSICAL EXAM: BP 121/78 Pulse 92 Temp 36.3 ?C (97.3 ?F) Resp 18 Physical Exam Vitals reviewed. Constitutional: General: He is not in acute distress. Appearance: Normal appearance. He is not ill-appearing or toxic-appearing. HENT: Ears: Comments: Hearing to conversational voice is normal. Pulmonary: Effort: Pulmonary effort is normal. Breath sounds: No wheezing (No audible wheeze). Skin: General: Skin is warm and dry. Comments: Wounds of toes with little maceration. Some callus. No evidence of cellulitis. See photos and measurements. Neurological: Mental Status: He is alert and oriented to person, place, and time. Psychiatric: Thought Content: Thought content normal. Wound/Incision 08/23/23 Lymphedema Toe - third Right;Anterior (Active) Wound Image 01/10/24933 Site Assessment Granulation;[place] 01/10/24933 Carine-Wound Assessment Maceration 01/10/24933 Wound Length (cm) 1.5 cm 01/10/24933 Wound Width (cm) 3.5 cm 01/10/24933 Wound Surface Area (cm^2) 5.25 cm^2 01/10/24933 Wound Depth (cm) 0.2 cm 01/10/24933 Wound Volume (cm^3) 1.05 cm^3 01/10/24933 Wound Healing % -733 01/10/24933 Drainage Description Serosanguineous 01/10/24933 Odor None 01/10/24933 Drainage Amount Small 01/10/24933 Treatments Cleansed 01/10/24933 Primary Dressing Alginate 01/03/24 1600 Secondary Dressing 4x4 gauze 01/03/24 1600 Secured with Conforming kerlex;Silk tape 01/03/24 1600 Compression Double Layer tubigrip 11/08/23 1000 Dressing Status New dressing;Clean, dry & intact 12/27/23 1341 Wound/Incision 11/15/23 Venous Ulcer Leg Right;Lower;Anterior;Lateral (Active) Wound Image 01/10/24935 Site Assessment Dry;[place] 01/10/24935 Carine-Wound Assessment Dry 01/10/24935 Wound Length (cm) 0.7 cm 01/10/24935 Wound Width (cm) 0.5 cm 01/10/24935 Wound Surface Area (cm^2) 0.35 cm^2 01/10/24935 Wound Depth (cm) 0.1 cm 01/10/24935 Wound Volume (cm^3) 0.035 cm^3 01/10/24935 Wound Healing % 100 01/10/24935 Drainage Description Serosanguineous 01/10/24935 Odor None 01/10/24935 Drainage Amount Scant 01/10/24935 Treatments Cleansed 01/10/24935 Primary Dressing Alginate 01/03/24 1600 Secondary Dressing 4x4 gauze 01/03/24 1600 Secured with Silk tape;Kerlex 01/03/24 1600 Compression Multilayer compression wrap - 3 layers 01/03/24 1600 Dressing Status Clean, dry & intact;New dressing 12/27/23 1340 1. 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 Venous insufficiency (chronic) (peripheral) 3. Decreased mobility Pt ed, reassure Alginate to toes Continue MLCD on R Submit for advanced product Reviewed s/s infection Reviewed activity/compression/elevation Reviewed protein/nutrition Recheck one wk, sooner prn Pt agrees with plan. PLAN: Patient examined and evaluated. Patient understands all that has been explained and wishes to proceed with current treatment. Patient understands all risks, benefits, procedures, carine-operative management, and possible complications. All questions answered and no guarantees made or implied. Please see attached Discharge Instructions [facility] 01-03-2024 History of Present illness Narrative Images from the original note were not included. [facility] Wound Care Progress Note CHIEF COMPLAINT: Wound Care HISTORY OF PRESENT ILLNESS: The patient is a 63 y.o. male arrives for recheck wounds of R toes. Feels toes improved since last visit. REVIEW OF SYSTEMS: Review of Systems Constitutional: Negative. Negative for chills, fatigue and fever. See HPI Respiratory: Negative. Cardiovascular: Negative. Skin: Positive for wound. Negative for color change (from typical for patient) and rash. PHYSICAL EXAM: BP 100/66 Pulse 76 Temp 36.6 C (97.8 F) Resp 18 Physical Exam Vitals reviewed. Constitutional: General: He is not in acute distress. Appearance: Normal appearance. He is not ill-appearing or toxic-appearing. HENT: Ears: Comments: Hearing to conversational voice is normal. Pulmonary: Effort: Pulmonary effort is normal. Breath sounds: No wheezing (No audible wheeze). Skin: General: Skin is warm and dry. Comments: Wounds of toes with little maceration. Smaller. Some callus. No evidence of cellulitis. See photos and measurements. Neurological: Mental Status: He is alert and oriented to person, place, and time. Psychiatric: Thought Content: Thought content normal. Wound/Incision 08/23/23 Lymphedema Toe - third Right;Anterior (Active) Wound Image 01/03/24 1523 Site Assessment Granulation;Pale;[place]ough[place] 01/03/24 1523 Carine-Wound Assessment Maceration;Edema 01/03/24 1523 Wound Length (cm) 1.8 cm 01/03/24 1523 Wound Width (cm) 4 cm 01/03/24 1523 Wound Surface Area (cm^2) 7.2 cm^2 01/03/24 1523 Wound Depth (cm) 0.2 cm 01/03/24 1523 Wound Volume (cm^3) 1.44 cm^3 01/03/24 1523 Wound Healing % -1043 01/03/24 1523 Drainage Description Serosanguineous 01/03/24 1523 Odor None 01/03/24 1523 Drainage Amount Scant 01/03/24 1523 Treatments Cleansed 01/03/24 1523 Primary Dressing Calcium alginate 12/27/23 1341 Secondary Dressing 4x4 gauze;ABD 12/27/23 1341 Secured with Kerlex;Paper tape 12/27/23 1341 Compression Double Layer tubigrip 11/08/23 1000 Dressing Status New dressing;Clean, dry & intact 12/27/23 1341 Wound/Incision 11/15/23 Venous Ulcer Leg Right;Lower;Anterior;Lateral (Active) Wound Image 01/03/24 1522 Site Assessment Dry;[place] 01/03/24 1522 Carine-Wound Assessment [place] 01/03/24 1522 Wound Length (cm) 1.5 cm 01/03/24 1522 Wound Width (cm) 0.7 cm 01/03/24 1522 Wound Surface Area (cm^2) 1.05 cm^2 01/03/24 1522 Wound Depth (cm) 0.1 cm 01/03/24 1522 Wound Volume (cm^3) 0.105 cm^3 01/03/24 1522 Wound Healing % 99 01/03/24 1522 Drainage Description Serosanguineous 01/03/24 1522 Odor None 01/03/24 1522 Drainage Amount Scant 01/03/24 1522 Treatments Cleansed 01/03/24 1522 Primary Dressing Alginate 12/13/23 1600 Secondary Dressing 4x4 gauze 12/13/23 1600 Secured with Kerlex;Silk tape 12/13/23 1600 Compression Multilayer compression wrap - 3 layers 12/27/23 1340 Dressing Status Clean, dry & intact;New dressing 12/27/23 1340 1. 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 Venous insufficiency (chronic) (peripheral) 3. Decreased mobility Pt ed, reassure Alginate to toes Continue MLCD on R Reviewed s/s infection Reviewed activity/compression/elevation Reviewed protein/nutrition Recheck one wk, sooner prn Pt agrees with plan. PLAN: Patient examined and evaluated. Patient understands all that has been explained and wishes to proceed with current treatment. Patient understands all risks, benefits, procedures, carine-operative management, and possible complications. All questions answered and no guarantees made or implied. Please see attached Discharge Instructions documented in this encounter [facility] 01-03-2024 Hospital Discharge instructions Giuliana Radford RN - 01/03/2024 3:15 PM EDT Return Appointment in: 1 week - Should you experience any significant changes in your wound(s) or have any questions regarding your home care instructions please contact the wound center at [phone] If after regular business hours, please call your family doctor or local emergency room. Edema Control: Elevate legs to the level of the heart or above for 30 minutes daily and/or when sitting Additional Orders/Instructions: Follow diet per physicians instructions - such as increasing protein intake to promote wound healing. Please begin including a protein supplement/shake to patient's diet to help with wound healing Take antibiotic as directed Nursing Care Facility: [facility] Wound Treatment to R toes- Daily Cleanse wound with mild soap and water and pat dry. Apply Calcium Alginate Apply dry dressing to cover the wound and secure with tape. Wound Treatment to RLE: Weekly Cleanse wound with mild soap and water and pat dry. Apply Profore light Do not get wet. OK to shower if wound dressing covered Apply Barrier Cream to bilateral buttocks and sacral area daily and PRN. documented in this encounter [facility] 01-03-2024 Note [facility] Wound Care Progress Note CHIEF COMPLAINT: Wound Care HISTORY OF PRESENT ILLNESS: The patient is a 63 y.o. male arrives for recheck wounds of R toes. Feels toes improved since last visit. REVIEW OF SYSTEMS: Review of Systems Constitutional: Negative. Negative for chills, fatigue and fever. See HPI Respiratory: Negative. Cardiovascular: Negative. Skin: Positive for wound. Negative for color change (from typical for patient) and rash. PHYSICAL EXAM: BP 100/66 Pulse 76 Temp 36.6 ?C (97.8 ?F) Resp 18 Physical Exam Vitals reviewed. Constitutional: General: He is not in acute distress. Appearance: Normal appearance. He is not ill-appearing or toxic-appearing. HENT: Ears: Comments: Hearing to conversational voice is normal. Pulmonary: Effort: Pulmonary effort is normal. Breath sounds: No wheezing (No audible wheeze). Skin: General: Skin is warm and dry. Comments: Wounds of toes with little maceration. Smaller. Some callus. No evidence of cellulitis. See photos and measurements. Neurological: Mental Status: He is alert and oriented to person, place, and time. Psychiatric: Thought Content: Thought content normal. Wound/Incision 08/23/23 Lymphedema Toe - third Right;Anterior (Active) Wound Image 01/03/24 1523 Site Assessment Granulation;Pale;[place];Sloughing 01/03/24 1523 Carine-Wound Assessment Maceration;Edema 01/03/24 1523 Wound Length (cm) 1.8 cm 01/03/24 1523 Wound Width (cm) 4 cm 01/03/24 1523 Wound Surface Area (cm^2) 7.2 cm^2 01/03/24 1523 Wound Depth (cm) 0.2 cm 01/03/24 1523 Wound Volume (cm^3) 1.44 cm^3 01/03/24 1523 Wound Healing % -1043 01/03/24 1523 Drainage Description Serosanguineous 01/03/24 1523 Odor None 01/03/24 1523 Drainage Amount Scant 01/03/24 1523 Treatments Cleansed 01/03/24 1523 Primary Dressing Calcium alginate 12/27/23 1341 Secondary Dressing 4x4 gauze;ABD 12/27/23 1341 Secured with Kerlex;Paper tape 12/27/23 1341 Compression Double Layer tubigrip 11/08/23 1000 Dressing Status New dressing;Clean, dry & intact 12/27/23 1341 Wound/Incision 11/15/23 Venous Ulcer Leg Right;Lower;Anterior;Lateral (Active) Wound Image 01/03/24 1522 Site Assessment Dry;[place] 01/03/24 1522 Carine-Wound Assessment [place] 01/03/24 1522 Wound Length (cm) 1.5 cm 01/03/24 1522 Wound Width (cm) 0.7 cm 01/03/24 1522 Wound Surface Area (cm^2) 1.05 cm^2 01/03/24 1522 Wound Depth (cm) 0.1 cm 01/03/24 1522 Wound Volume (cm^3) 0.105 cm^3 01/03/24 1522 Wound Healing % 99 01/03/24 1522 Drainage Description Serosanguineous 01/03/24 1522 Odor None 01/03/24 1522 Drainage Amount Scant 01/03/24 1522 Treatments Cleansed 01/03/24 1522 Primary Dressing Alginate 12/13/23 1600 Secondary Dressing 4x4 gauze 12/13/23 1600 Secured with Kerlex;Silk tape 12/13/23 1600 Compression Multilayer compression wrap - 3 layers 12/27/23 1340 Dressing Status Clean, dry & intact;New dressing 12/27/23 1340 1. 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 Venous insufficiency (chronic) (peripheral) 3. Decreased mobility Pt ed, reassure Alginate to toes Continue MLCD on R Reviewed s/s infection Reviewed activity/compression/elevation Reviewed protein/nutrition Recheck one wk, sooner prn Pt agrees with plan. PLAN: Patient examined and evaluated. Patient understands all that has been explained and wishes to proceed with current treatment. Patient understands all risks, benefits, procedures, carine-operative management, and possible complications. All questions answered and no guarantees made or implied. Please see attached Discharge Instructions [facility] 12-27-2023 Hospital Discharge instructions Giuliana Radford RN - 12/27/2023 2:45 PM EDT Return Appointment in: 1 week - Should you experience any significant changes in your wound(s) or have any questions regarding your home care instructions please contact the wound center at [phone] If after regular business hours, please call your family doctor or local emergency room. Edema Control: Elevate legs to the level of the heart or above for 30 minutes daily and/or when sitting Additional Orders/Instructions: Follow diet per physicians instructions - such as increasing protein intake to promote wound healing. Please begin including a protein supplement/shake to patient's diet to help with wound healing Take antibiotic as directed Nursing Care Facility: [facility] Wound Treatment to R toes- Daily Cleanse wound with mild soap and water and pat dry. Apply Calcium Alginate Apply dry dressing to cover the wound and secure with tape. Wound Treatment to RLE: Weekly Cleanse wound with mild soap and water and pat dry. Apply Profore light Do not get wet. OK to shower if wound dressing covered Apply Barrier Cream to bilateral buttocks and sacral area daily and PRN. documented in this encounter [facility] 12-27-2023 Note [facility] Wound Care Progress Note CHIEF COMPLAINT: Wound Care HISTORY OF PRESENT ILLNESS: The patient is a 63 y.o. male arrives for recheck wounds of R toes. Feels toes improved since last visit. REVIEW OF SYSTEMS: Review of Systems Constitutional: Negative. Negative for chills, fatigue and fever. See HPI Respiratory: Negative. Cardiovascular: Negative. Skin: Positive for wound. Negative for color change (from typical for patient) and rash. PHYSICAL EXAM: BP 111/65 (BP Location: Right arm, Patient Position: Sitting, BP Cuff Size: Adult) Pulse 62 Temp 36.4 ?C (97.5 ?F) (Temporal) Resp 18 Physical Exam Vitals reviewed. Constitutional: General: He is not in acute distress. Appearance: Normal appearance. He is not ill-appearing or toxic-appearing. HENT: Ears: Comments: Hearing to conversational voice is normal. Pulmonary: Effort: Pulmonary effort is normal. Breath sounds: No wheezing (No audible wheeze). Skin: General: Skin is warm and dry. Comments: Wounds of toes with little maceration. Smaller. Some callus. No evidence of cellulitis. See photos and measurements. Neurological: Mental Status: He is alert and oriented to person, place, and time. Psychiatric: Thought Content: Thought content normal. Wound/Incision 08/23/23 Lymphedema Toe - third Right;Anterior (Active) Wound Image 12/27/23 134 Site Assessment Granulation;[place];Sloughing 12/27/23 1341 Carine-Wound Assessment Maceration;Moist 12/27/23 1341 Wound Length (cm) 2 cm 12/27/23 1341 Wound Width (cm) 4.6 cm 12/27/23 1341 Wound Surface Area (cm^2) 9.2 cm^2 12/27/23 1341 Wound Depth (cm) 0.2 cm 12/27/23 1341 Wound Volume (cm^3) 1.84 cm^3 12/27/23 1341 Wound Healing % -1360 12/27/23 1341 Drainage Description Serosanguineous 12/27/23 1341 Odor None 12/27/23 1341 Drainage Amount Small 12/27/23 1341 Treatments Cleansed 12/27/23 1341 Primary Dressing Calcium alginate 12/27/23 1341 Secondary Dressing 4x4 gauze;ABD 12/27/23 1341 Secured with Kerlex;Paper tape 12/27/23 1341 Compression Double Layer tubigrip 11/08/23 1000 Dressing Status New dressing;Clean, dry & intact 12/27/23 1341 Wound/Incision 11/15/23 Venous Ulcer Leg Right;Lower;Anterior;Lateral (Active) Wound Image 12/27/23 1340 Site Assessment [place];Red 12/27/23 134 Carine-Wound Assessment Dry 12/27/23 1340 Wound Length (cm) 1.5 cm 12/27/23 1340 Wound Width (cm) 0.8 cm 12/27/23 1340 Wound Surface Area (cm^2) 1.2 cm^2 12/27/23 1340 Wound Depth (cm) 0.1 cm 12/27/23 1340 Wound Volume (cm^3) 0.12 cm^3 12/27/23 1340 Wound Healing % 99 12/27/23 1340 Drainage Description Serosanguineous 12/27/23 1340 Odor None 12/27/23 1340 Drainage Amount Scant 12/27/23 1340 Treatments Cleansed 12/27/23 1340 Primary Dressing Alginate 12/13/23 1600 Secondary Dressing 4x4 gauze 12/13/23 1600 Secured with Kerlex;Silk tape 12/13/23 1600 Compression Multilayer compression wrap - 3 layers 12/27/23 134 Dressing Status Clean, dry & intact;New dressing 12/27/23 1340 1. 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 Venous insufficiency (chronic) (peripheral) 3. Decreased mobility Pt ed, reassure Alginate to toes Continue MLCD on R Reviewed s/s infection Reviewed activity/compression/elevation Reviewed protein/nutrition Recheck one wk, sooner prn Pt agrees with plan. PLAN: Patient examined and evaluated. Patient understands all that has been explained and wishes to proceed with current treatment. Patient understands all risks, benefits, procedures, carine-operative management, and possible complications. All questions answered and no guarantees made or implied. Please see attached Discharge Instructions [facility] 12-20-2023 History of Present illness Narrative Images from the original note were not included. [facility] Wound Care Progress Note CHIEF COMPLAINT: Wound Care HISTORY OF PRESENT ILLNESS: The patient is a 63 y.o. male arrives for recheck wounds of R toes. Feels toes improved since last visit. REVIEW OF SYSTEMS: Review of Systems Constitutional: Negative. Negative for chills, fatigue and fever. See HPI Respiratory: Negative. Cardiovascular: Negative. Skin: Positive for wound. Negative for color change (from typical for patient) and rash. PHYSICAL EXAM: BP 108/74 (BP Location: Right arm, Patient Position: Sitting, BP Cuff Size: Adult) Pulse 64 Temp 36.7 C (98 F) (Temporal) Resp 18 Physical Exam Vitals reviewed. Constitutional: General: He is not in acute distress. Appearance: Normal appearance. He is not ill-appearing or toxic-appearing. HENT: Ears: Comments: Hearing to conversational voice is normal. Pulmonary: Effort: Pulmonary effort is normal. Breath sounds: No wheezing (No audible wheeze). Skin: General: Skin is warm and dry. Comments: Wounds of toes with little maceration. Smaller. Some callus. No evidence of cellulitis. See photos and measurements. Neurological: Mental Status: He is alert and oriented to person, place, and time. Psychiatric: Thought Content: Thought content normal. Wound/Incision 08/23/23 Lymphedema Toe - third Right;Anterior (Active) Wound Image 12/20/23 1108 Site Assessment Granulation;[place];Red 12/20/23 110 Carine-Wound Assessment Moist ;Maceration 12/20/23 1108 Wound Length (cm) 1 cm 12/20/23 1108 Wound Width (cm) 4.5 cm 12/20/23 1108 Wound Surface Area (cm^2) 4.5 cm^2 12/20/23 1108 Wound Depth (cm) 0.3 cm 12/20/23 1108 Wound Volume (cm^3) 1.35 cm^3 12/20/23 1108 Wound Healing % -971 12/20/23 1108 Drainage Description Serosanguineous 12/20/23 1108 Odor None 12/20/23 1108 Drainage Amount Small 12/20/23 1108 Treatments Cleansed;Lotion 12/20/23 1108 Primary Dressing Calcium alginate 12/20/23 1108 Secondary Dressing 4x4 gauze;ABD 12/20/23 1108 Secured with Kerlex;Paper tape 12/20/23 1108 Compression Double Layer tubigrip 11/08/23 1000 Dressing Status New dressing;Clean, dry & intact 12/20/23 1108 Wound/Incision 11/15/23 Venous Ulcer Leg Right;Lower;Anterior;Lateral (Active) Wound Image 12/20/23 1108 Site Assessment Dry;Intact 12/20/23 1108 Carine-Wound Assessment Dry 12/20/23 1108 Wound Length (cm) 0.1 cm 12/20/23 1108 Wound Width (cm) 0.1 cm 12/20/23 1108 Wound Surface Area (cm^2) 0.01 cm^2 12/20/23 1108 Wound Depth (cm) 0.1 cm 12/20/23 1108 Wound Volume (cm^3) 0.001 cm^3 12/20/23 1108 Wound Healing % 100 12/20/23 1108 Drainage Description Unable to assess 12/13/23 1532 Odor None 12/20/23 1108 Drainage Amount None 12/20/23 1108 Treatments Cleansed;Lotion 12/20/23 1108 Primary Dressing Alginate 12/13/23 1600 Secondary Dressing 4x4 gauze 12/13/23 1600 Secured with Kerlex;Silk tape 12/13/23 1600 Compression Multilayer compression wrap - 3 layers 12/20/23 1108 Dressing Status Clean, dry & intact;New dressing 12/20/23 1108 1. 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 Venous insufficiency (chronic) (peripheral) 3. Lymphedema 4. Decreased mobility Pt ed, reassure Alginate to toes Continue MLCD on R Reviewed s/s infection Reviewed activity/compression/elevation Reviewed protein/nutrition Recheck one wk, sooner prn Pt agrees with plan. PLAN: Patient examined and evaluated. Patient understands all that has been explained and wishes to proceed with current treatment. Patient understands all risks, benefits, procedures, carine-operative management, and possible complications. All questions answered and no guarantees made or implied. Please see attached Discharge Instructions documented in this encounter [facility] 12-20-2023 Hospital Discharge instructions Giuliana Radford RN - 12/20/2023 11:00 AM EDT Return Appointment in: 1 week - Should you experience any significant changes in your wound(s) or have any questions regarding your home care instructions please contact the wound center at [phone] If after regular business hours, please call your family doctor or local emergency room. Edema Control: Elevate legs to the level of the heart or above for 30 minutes daily and/or when sitting Additional Orders/Instructions: Follow diet per physicians instructions - such as increasing protein intake to promote wound healing. Please begin including a protein supplement/shake to patient's diet to help with wound healing Take antibiotic as directed Nursing Care Facility: [facility] Wound Treatment to R toes- Daily Cleanse wound with mild soap and water and pat dry. Apply Calcium Alginate Apply dry dressing to cover the wound and secure with tape. Wound Treatment to RLE: Weekly (R leg healed) Cleanse wound with mild soap and water and pat dry. Apply Profore light Do not get wet. OK to shower if wound dressing covered Apply Barrier Cream to bilateral buttocks and sacral area daily and PRN. documented in this encounter [facility] 12-20-2023 Note [facility] Wound Care Progress Note CHIEF COMPLAINT: Wound Care HISTORY OF PRESENT ILLNESS: The patient is a 63 y.o. male arrives for recheck wounds of R toes. Feels toes improved since last visit. REVIEW OF SYSTEMS: Review of Systems Constitutional: Negative. Negative for chills, fatigue and fever. See HPI Respiratory: Negative. Cardiovascular: Negative. Skin: Positive for wound. Negative for color change (from typical for patient) and rash. PHYSICAL EXAM: BP 108/74 (BP Location: Right arm, Patient Position: Sitting, BP Cuff Size: Adult) Pulse 64 Temp 36.7 ?C (98 ?F) (Temporal) Resp 18 Physical Exam Vitals reviewed. Constitutional: General: He is not in acute distress. Appearance: Normal appearance. He is not ill-appearing or toxic-appearing. HENT: Ears: Comments: Hearing to conversational voice is normal. Pulmonary: Effort: Pulmonary effort is normal. Breath sounds: No wheezing (No audible wheeze). Skin: General: Skin is warm and dry. Comments: Wounds of toes with little maceration. Smaller. Some callus. No evidence of cellulitis. See photos and measurements. Neurological: Mental Status: He is alert and oriented to person, place, and time. Psychiatric: Thought Content: Thought content normal. Wound/Incision 08/23/23 Lymphedema Toe - third Right;Anterior (Active) Wound Image 12/20/23 1108 Site Assessment Granulation;[place];Red 12/20/23 1108 Carine-Wound Assessment Moist ;Maceration 12/20/23 1108 Wound Length (cm) 1 cm 12/20/23 1108 Wound Width (cm) 4.5 cm 12/20/23 1108 Wound Surface Area (cm^2) 4.5 cm^2 12/20/23 1108 Wound Depth (cm) 0.3 cm 12/20/23 1108 Wound Volume (cm^3) 1.35 cm^3 12/20/23 1108 Wound Healing % -971 12/20/23 1108 Drainage Description Serosanguineous 12/20/23 1108 Odor None 12/20/23 1108 Drainage Amount Small 12/20/23 1108 Treatments Cleansed;Lotion 12/20/23 1108 Primary Dressing Calcium alginate 12/20/23 1108 Secondary Dressing 4x4 gauze;ABD 12/20/23 1108 Secured with Kerlex;Paper tape 12/20/23 1108 Compression Double Layer tubigrip 11/08/23 1000 Dressing Status New dressing;Clean, dry & intact 12/20/23 1108 Wound/Incision 11/15/23 Venous Ulcer Leg Right;Lower;Anterior;Lateral (Active) Wound Image 12/20/23 1108 Site Assessment Dry;Intact 12/20/23 1108 Carine-Wound Assessment Dry 12/20/23 1108 Wound Length (cm) 0.1 cm 12/20/23 1108 Wound Width (cm) 0.1 cm 12/20/23 1108 Wound Surface Area (cm^2) 0.01 cm^2 12/20/23 1108 Wound Depth (cm) 0.1 cm 12/20/23 1108 Wound Volume (cm^3) 0.001 cm^3 12/20/23 1108 Wound Healing % 100 12/20/23 1108 Drainage Description Unable to assess 12/13/23 1532 Odor None 12/20/23 1108 Drainage Amount None 12/20/23 1108 Treatments Cleansed;Lotion 12/20/23 1108 Primary Dressing Alginate 12/13/23 1600 Secondary Dressing 4x4 gauze 12/13/23 1600 Secured with Kerlex;Silk tape 12/13/23 1600 Compression Multilayer compression wrap - 3 layers 12/20/23 1108 Dressing Status Clean, dry & intact;New dressing 12/20/23 1108 1. 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 Venous insufficiency (chronic) (peripheral) 3. Lymphedema 4. Decreased mobility Pt ed, reassure Alginate to toes Continue MLCD on R Reviewed s/s infection Reviewed activity/compression/elevation Reviewed protein/nutrition Recheck one wk, sooner prn Pt agrees with plan. PLAN: Patient examined and evaluated. Patient understands all that has been explained and wishes to proceed with current treatment. Patient understands all risks, benefits, procedures, carine-operative management, and possible complications. All questions answered and no guarantees made or implied. Please see attached Discharge Instructions [facility] 12-13-2023 History of Present illness Narrative Images from the original note were not included. [facility] Wound Care Progress Note CHIEF COMPLAINT: Wound Care HISTORY OF PRESENT ILLNESS: The patient is a 63 y.o. male arrives for recheck wounds of R toes. Feels R lower leg wound is gone. Feels toes improved since last visit. REVIEW OF SYSTEMS: Review of Systems Constitutional: Negative. Negative for chills, fatigue and fever. See HPI Respiratory: Negative. Cardiovascular: Negative. Skin: Positive for wound. Negative for color change (from typical for patient) and rash. PHYSICAL EXAM: BP 109/68 (BP Location: Right arm, Patient Position: Sitting, BP Cuff Size: Large adult) Pulse 62 Temp 36.4 C (97.5 F) (Temporal) Physical Exam Vitals reviewed. Constitutional: General: He is not in acute distress. Appearance: Normal appearance. He is not ill-appearing or toxic-appearing. HENT: Ears: Comments: Hearing to conversational voice is normal. Pulmonary: Effort: Pulmonary effort is normal. Breath sounds: No wheezing (No audible wheeze). Skin: General: Skin is warm and dry. Comments: Wounds of toes with little maceration. Smaller. Some callus. No evidence of cellulitis. See photos and measurements. Neurological: Mental Status: He is alert and oriented to person, place, and time. Psychiatric: Thought Content: Thought content normal. Wound/Incision 08/23/23 Lymphedema Toe - third Right;Anterior (Active) Wound Image 12/13/23 0772 Site Assessment [place];Red;Sloughing 12/13/23 1532 Carine-Wound Assessment Moist ;Maceration 12/13/23 1532 Wound Length (cm) 0.9 cm 12/13/23 1532 Wound Width (cm) 2.6 cm 12/13/23 1532 Wound Surface Area (cm^2) 2.34 cm^2 12/13/23 1532 Wound Depth (cm) 0.2 cm 12/13/23 1532 Wound Volume (cm^3) 0.468 cm^3 12/13/23 1532 Wound Healing % -271 12/13/23 1532 Drainage Description Serosanguineous 12/13/23 1532 Odor None 12/13/23 1532 Drainage Amount Small 12/13/23 1532 Treatments Cleansed 12/13/23 1532 Primary Dressing Calcium alginate 12/06/23 1050 Secondary Dressing 4x4 gauze 11/29/23 1100 Secured with Conforming kerlex;Paper tape 12/06/23 1050 Compression Double Layer tubigrip 11/08/23 1000 Dressing Status New dressing;Clean, dry & intact 12/06/23 1050 Wound/Incision 11/15/23 Venous Ulcer Leg Right;Lower;Anterior;Lateral (Active) Wound Image 12/13/23 1532 Site Assessment Dry 12/13/23 1532 Carine-Wound Assessment Dry 12/13/23 1532 Wound Length (cm) 0.1 cm 12/13/23 1532 Wound Width (cm) 0.1 cm 12/13/23 1532 Wound Surface Area (cm^2) 0.01 cm^2 12/13/23 1532 Wound Depth (cm) 0.1 cm 12/13/23 1532 Wound Volume (cm^3) 0.001 cm^3 12/13/23 1532 Wound Healing % 100 12/13/23 1532 Drainage Description Unable to assess 12/13/23 1532 Odor None 12/13/23 1532 Drainage Amount None 12/13/23 1532 Treatments Cleansed 12/13/23 1532 Primary Dressing Calcium alginate 12/06/23 1048 Secondary Dressing 4x4 gauze 12/06/23 1048 Secured with Conforming kerlex;Paper tape 12/06/23 1048 Compression Multilayer compression wrap - 3 layers 12/06/23 1048 Dressing Status New dressing;Clean, dry & intact 12/06/23 1048 1. 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 Venous insufficiency (chronic) (peripheral) 3. Lymphedema 4. Decreased mobility Pt ed, reassure Alginate to toes Continue MLCD on R Reviewed s/s infection Reviewed activity/compression/elevation Reviewed protein/nutrition Recheck one wk, sooner prn Pt agrees with plan. PLAN: Patient examined and evaluated. Patient understands all that has been explained and wishes to proceed with current treatment. Patient understands all risks, benefits, procedures, carine-operative management, and possible complications. All questions answered and no guarantees made or implied. Please see attached Discharge Instructions documented in this encounter [facility] 12-13-2023 Hospital Discharge instructions Giuliana Radford RN - 12/13/2023 3:15 PM EDT Return Appointment in: 1 week - Should you experience any significant changes in your wound(s) or have any questions regarding your home care instructions please contact the wound center at [phone] If after regular business hours, please call your family doctor or local emergency room. Edema Control: Elevate legs to the level of the heart or above for 30 minutes daily and/or when sitting Additional Orders/Instructions: Follow diet per physicians instructions - such as increasing protein intake to promote wound healing. Please begin including a protein supplement/shake to patient's diet to help with wound healing Take antibiotic as directed Nursing Care Facility: [facility] Wound Treatment to R toes- Daily Cleanse wound with mild soap and water and pat dry. Apply Calcium Alginate Apply dry dressing to cover the wound and secure with tape. Wound Treatment to RLE: Weekly (R leg healed) Cleanse wound with mild soap and water and pat dry. Apply Profore light Do not get wet. OK to shower if wound dressing covered Apply Barrier Cream to bilateral buttocks and sacral area daily and PRN. documented in this encounter [facility] 12-13-2023 Miscellaneous Notes Encounter addended by: Renetta Majano LPN on: 12/13/2023 4:16 PM Actions taken: Flowsheet accepted documented in this encounter [facility] 12-13-2023 Note Encounter addended b y: Renetta Majano LPN on: 12/13/2023 4:16 PM Actions taken: Flowsheet accepted [facility] 12-13-2023 Note Encounter addended b y: Renetta Majano LPN on: 12/13/2023 4:16 PM Actions taken: Flowsheet accepted [facility] 12-13-2023 Note Encounter addended b y: Renetta Majano LPN on: 12/13/2023 4:16 PM Actions taken: Flowsheet accepted [facility] 12-13-2023 Note [facility] Wound Care Progress Note CHIEF COMPLAINT: Wound Care HISTORY OF PRESENT ILLNESS: The patient is a 63 y.o. male arrives for recheck wounds of R toes. Feels R lower leg wound is gone. Feels toes improved since last visit. REVIEW OF SYSTEMS: Review of Systems Constitutional: Negative. Negative for chills, fatigue and fever. See HPI Respiratory: Negative. Cardiovascular: Negative. Skin: Positive for wound. Negative for color change (from typical for patient) and rash. PHYSICAL EXAM: BP 109/68 (BP Location: Right arm, Patient Position: Sitting, BP Cuff Size: Large adult) Pulse 62 Temp 36.4 ?C (97.5 ?F) (Temporal) Physical Exam Vitals reviewed. Constitutional: General: He is not in acute distress. Appearance: Normal appearance. He is not ill-appearing or toxic-appearing. HENT: Ears: Comments: Hearing to conversational voice is normal. Pulmonary: Effort: Pulmonary effort is normal. Breath sounds: No wheezing (No audible wheeze). Skin: General: Skin is warm and dry. Comments: Wounds of toes with little maceration. Smaller. Some callus. No evidence of cellulitis. See photos and measurements. Neurological: Mental Status: He is alert and oriented to person, place, and time. Psychiatric: Thought Content: Thought content normal. Wound/Incision 08/23/23 Lymphedema Toe - third Right;Anterior (Active) Wound Image 12/13/23 153 Site Assessment [place];Red;Sloughing 12/13/23 153 Carine-Wound Assessment Moist ;Maceration 12/13/23 1532 Wound Length (cm) 0.9 cm 12/13/23 1532 Wound Width (cm) 2.6 cm 12/13/23 1532 Wound Surface Area (cm^2) 2.34 cm^2 12/13/23 1532 Wound Depth (cm) 0.2 cm 12/13/23 1532 Wound Volume (cm^3) 0.468 cm^3 12/13/23 1532 Wound Healing % -271 12/13/23 1532 Drainage Description Serosanguineous 12/13/23 1532 Odor None 12/13/23 1532 Drainage Amount Small 12/13/23 1532 Treatments Cleansed 12/13/23 1532 Primary Dressing Calcium alginate 12/06/23 1050 Secondary Dressing 4x4 gauze 11/29/23 1100 Secured with Conforming kerlex;Paper tape 12/06/23 1050 Compression Double Layer tubigrip 11/08/23 1000 Dressing Status New dressing;Clean, dry & intact 12/06/23 1050 Wound/Incision 11/15/23 Venous Ulcer Leg Right;Lower;Anterior;Lateral (Active) Wound Image 12/13/23 1532 Site Assessment Dry 12/13/23 1532 Carine-Wound Assessment Dry 12/13/23 1532 Wound Length (cm) 0.1 cm 12/13/23 1532 Wound Width (cm) 0.1 cm 12/13/23 1532 Wound Surface Area (cm^2) 0.01 cm^2 12/13/23 1532 Wound Depth (cm) 0.1 cm 12/13/23 1532 Wound Volume (cm^3) 0.001 cm^3 12/13/23 1532 Wound Healing % 100 12/13/23 1532 Drainage Description Unable to assess 12/13/23 1532 Odor None 12/13/23 1532 Drainage Amount None 12/13/23 1532 Treatments Cleansed 12/13/23 1532 Primary Dressing Calcium alginate 12/06/23 1048 Secondary Dressing 4x4 gauze 12/06/23 1048 Secured with Conforming kerlex;Paper tape 12/06/23 1048 Compression Multilayer compression wrap - 3 layers 12/06/23 1048 Dressing Status New dressing;Clean, dry & intact 12/06/23 1048 1. 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 Venous insufficiency (chronic) (peripheral) 3. Lymphedema 4. Decreased mobility Pt ed, reassure Alginate to toes Continue MLCD on R Reviewed s/s infection Reviewed activity/compression/elevation Reviewed protein/nutrition Recheck one wk, sooner prn Pt agrees with plan. PLAN: Patient examined and evaluated. Patient understands all that has been explained and wishes to proceed with current treatment. Patient understands all risks, benefits, procedures, carine-operative management, and possible complications. All questions answered and no guarantees made or implied. Please see attached Discharge Instructions [facility] 12-13-2023 Note Encounter addended b y: Renetta Majano LPN on: 12/13/2023 4:16 PM Actions taken: Flowsheet accepted [facility] 12-06-2023 History of Present illness Narrative Images from the original note were not included. [facility] Wound Care Progress Note CHIEF COMPLAINT: Wound Care HISTORY OF PRESENT ILLNESS: The patient is a 63 y.o. male arrives for recheck wounds of R toes and R lower leg. Feels toes improved since last visit. New lower leg wounds also improved. Denies f/c/n/v/d. REVIEW OF SYSTEMS: Review of Systems Constitutional: Negative. Negative for chills, fatigue and fever. See HPI Respiratory: Negative. Cardiovascular: Negative. Skin: Positive for wound. Negative for color change (from typical for patient) and rash. PHYSICAL EXAM: BP 94/63 (BP Location: Right arm, Patient Position: Sitting, BP Cuff Size: Large adult) Pulse 62 Temp 36.6 C (97.9 F) (Temporal) Resp 18 Physical Exam Vitals reviewed. Constitutional: General: He is not in acute distress. Appearance: Normal appearance. He is not ill-appearing or toxic-appearing. HENT: Ears: Comments: Hearing to conversational voice is normal. Pulmonary: Effort: Pulmonary effort is normal. Breath sounds: No wheezing (No audible wheeze). Skin: General: Skin is warm and dry. Comments: Wounds of toes with little maceration. Stable. New wounds of R lower leg are resolved. No evidence of cellulitis. See photos and measurements. Neurological: Mental Status: He is alert and oriented to person, place, and time. Psychiatric: Thought Content: Thought content normal. Wound/Incision 08/23/23 Lymphedema Toe - third Right;Anterior (Active) Wound Image 12/06/23 1050 Site Assessment [place];Red;Sloughing 12/06/23 1050 Carine-Wound Assessment Moist ;Maceration 12/06/23 1050 Wound Length (cm) 1 cm 12/06/23 1050 Wound Width (cm) 4.4 cm 12/06/23 1050 Wound Surface Area (cm^2) 4.4 cm^2 12/06/23 1050 Wound Depth (cm) 0.2 cm 12/06/23 1050 Wound Volume (cm^3) 0.88 cm^3 12/06/23 1050 Wound Healing % -598 12/06/23 1050 Drainage Description Serosanguineous 12/06/23 1050 Odor Mild 12/06/23 1050 Drainage Amount Small 12/06/23 1050 Treatments Cleansed 12/06/23 1050 Primary Dressing Calcium alginate 11/29/23 1100 Secondary Dressing 4x4 gauze 11/29/23 1100 Secured with Kerlex;Silk tape 11/29/23 1100 Compression Double Layer tubigrip 11/08/23 1000 Dressing Status New dressing;Clean, dry & intact 11/29/23 1100 Wound/Incision 11/15/23 Venous Ulcer Leg Right;Lower;Anterior;Lateral (Active) Wound Image 12/06/23 1048 Site Assessment Dry;[place];Sloughing 12/06/23 1048 Carine-Wound Assessment Edema;[place] 12/06/23 1048 Wound Length (cm) 4 cm 12/06/23 1048 Wound Width (cm) 4 cm 12/06/23 1048 Wound Surface Area (cm^2) 16 cm^2 12/06/23 1048 Wound Depth (cm) 0.1 cm 12/06/23 1048 Wound Volume (cm^3) 1.6 cm^3 12/06/23 1048 Wound Healing % 86 12/06/23 1048 Drainage Description Serosanguineous 12/06/23 1048 Odor None 12/06/23 1048 Drainage Amount Small 12/06/23 1048 Treatments Cleansed 12/06/23 1048 Primary Dressing Adaptic;Calcium alginate 11/29/23 1100 Secondary Dressing 4x4 gauze 11/29/23 1100 Secured with Kerlex;Silk tape 11/29/23 1100 Compression Multilayer compression wrap - 3 layers 11/29/23 1100 Dressing Status New dressing;Clean, dry & intact 11/29/23 1100 1. 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 Venous insufficiency (chronic) (peripheral) 3. Lymphedema 4. Decreased mobility Pt ed, reassure Alginate to toes Continue MLCD on R Reviewed s/s infection Reviewed activity/compression/elevation Reviewed protein/nutrition Recheck one wk, sooner prn Pt agrees with plan. PLAN: Patient examined and evaluated. Patient understands all that has been explained and wishes to proceed with current treatment. Patient understands all risks, benefits, procedures, carine-operative management, and possible complications. All questions answered and no guarantees made or implied. Please see attached Discharge Instructions documented in this encounter [facility] 12-06-2023 Hospital Discharge instructions Giuliana Radford RN - 12/06/2023 10:30 AM EDT Return Appointment in: 1 week - Should you experience any significant changes in your wound(s) or have any questions regarding your home care instructions please contact the wound center at [phone] If after regular business hours, please call your family doctor or local emergency room. Edema Control: Elevate legs to the level of the heart or above for 30 minutes daily and/or when sitting Additional Orders/Instructions: Follow diet per physicians instructions - such as increasing protein intake to promote wound healing. Please begin including a protein supplement/shake to patient's diet to help with wound healing Take antibiotic as directed Nursing Care Facility: [facility] Wound Treatment to R toes- Daily Cleanse wound with mild soap and water and pat dry. Apply Calcium Alginate Apply dry dressing to cover the wound and secure with tape. Wound Treatment to RLE: Weekly (R leg healed) Cleanse wound with mild soap and water and pat dry. Apply Profore light Do not get wet. OK to shower if wound dressing covered Apply Barrier Cream to bilateral buttocks and sacral area daily and PRN. documented in this encounter [facility] 12-06-2023 Note [facility] Wound Care Progress Note CHIEF COMPLAINT: Wound Care HISTORY OF PRESENT ILLNESS: The patient is a 63 y.o. male arrives for recheck wounds of R toes and R lower leg. Feels toes improved since last visit. New lower leg wounds also improved. Denies f/c/n/v/d. REVIEW OF SYSTEMS: Review of Systems Constitutional: Negative. Negative for chills, fatigue and fever. See HPI Respiratory: Negative. Cardiovascular: Negative. Skin: Positive for wound. Negative for color change (from typical for patient) and rash. PHYSICAL EXAM: BP 94/63 (BP Location: Right arm, Patient Position: Sitting, BP Cuff Size: Large adult) Pulse 62 Temp 36.6 ?C (97.9 ?F) (Temporal) Resp 18 Physical Exam Vitals reviewed. Constitutional: General: He is not in acute distress. Appearance: Normal appearance. He is not ill-appearing or toxic-appearing. HENT: Ears: Comments: Hearing to conversational voice is normal. Pulmonary: Effort: Pulmonary effort is normal. Breath sounds: No wheezing (No audible wheeze). Skin: General: Skin is warm and dry. Comments: Wounds of toes with little maceration. Stable. New wounds of R lower leg are resolved. No evidence of cellulitis. See photos and measurements. Neurological: Mental Status: He is alert and oriented to person, place, and time. Psychiatric: Thought Content: Thought content normal. Wound/Incision 08/23/23 Lymphedema Toe - third Right;Anterior (Active) Wound Image 12/06/23 1050 Site Assessment [place];Red;Sloughing 12/06/23 1050 Carine-Wound Assessment Moist ;Maceration 12/06/23 1050 Wound Length (cm) 1 cm 12/06/23 1050 Wound Width (cm) 4.4 cm 12/06/23 1050 Wound Surface Area (cm^2) 4.4 cm^2 12/06/23 1050 Wound Depth (cm) 0.2 cm 12/06/23 1050 Wound Volume (cm^3) 0.88 cm^3 12/06/23 1050 Wound Healing % -598 12/06/23 1050 Drainage Description Serosanguineous 12/06/23 1050 Odor Mild 12/06/23 1050 Drainage Amount Small 12/06/23 1050 Treatments Cleansed 12/06/23 1050 Primary Dressing Calcium alginate 11/29/23 1100 Secondary Dressing 4x4 gauze 11/29/23 1100 Secured with Kerlex;Silk tape 11/29/23 1100 Compression Double Layer tubigrip 11/08/23 1000 Dressing Status New dressing;Clean, dry & intact 11/29/23 1100 Wound/Incision 11/15/23 Venous Ulcer Leg Right;Lower;Anterior;Lateral (Active) Wound Image 12/06/23 1048 Site Assessment Dry;[place];Sloughing 12/06/23 1048 Carine-Wound Assessment Edema;[place] 12/06/23 1048 Wound Length (cm) 4 cm 12/06/23 1048 Wound Width (cm) 4 cm 12/06/23 1048 Wound Surface Area (cm^2) 16 cm^2 12/06/23 1048 Wound Depth (cm) 0.1 cm 12/06/23 1048 Wound Volume (cm^3) 1.6 cm^3 12/06/23 1048 Wound Healing % 86 12/06/23 1048 Drainage Description Serosanguineous 12/06/23 1048 Odor None 12/06/23 1048 Drainage Amount Small 12/06/23 1048 Treatments Cleansed 12/06/23 1048 Primary Dressing Adaptic;Calcium alginate 11/29/23 1100 Secondary Dressing 4x4 gauze 11/29/23 1100 Secured with Kerlex;Silk tape 11/29/23 1100 Compression Multilayer compression wrap - 3 layers 11/29/23 1100 Dressing Status New dressing;Clean, dry & intact 11/29/23 1100 1. 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 Venous insufficiency (chronic) (peripheral) 3. Lymphedema 4. Decreased mobility Pt ed, reassure Alginate to toes Continue MLCD on R Reviewed s/s infection Reviewed activity/compression/elevation Reviewed protein/nutrition Recheck one wk, sooner prn Pt agrees with plan. PLAN: Patient examined and evaluated. Patient understands all that has been explained and wishes to proceed with current treatment. Patient understands all risks, benefits, procedures, carine-operative management, and possible complications. All questions answered and no guarantees made or implied. Please see attached Discharge Instructions [facility] 11-29-2023 History of Present illness Narrative Images from the original note were not included. [facility] Wound Care Progress Note CHIEF COMPLAINT: Wound Care HISTORY OF PRESENT ILLNESS: The patient is a 62 y.o. male arrives for recheck wounds of R toes and R lower leg. Feels toes improved since last visit. New lower leg wounds also improved. Denies f/c/n/v/d. REVIEW OF SYSTEMS: Review of Systems Constitutional: Negative. Negative for chills, fatigue and fever. See HPI Respiratory: Negative. Cardiovascular: Negative. Skin: Positive for wound. Negative for color change (from typical for patient) and rash. PHYSICAL EXAM: BP 114/73 (BP Location: Left arm, Patient Position: Sitting, BP Cuff Size: Large adult) Pulse 66 Temp 36.2 C (97.1 F) (Temporal) Physical Exam Vitals reviewed. Constitutional: General: He is not in acute distress. Appearance: Normal appearance. He is not ill-appearing or toxic-appearing. HENT: Ears: Comments: Hearing to conversational voice is normal. Pulmonary: Effort: Pulmonary effort is normal. Breath sounds: No wheezing (No audible wheeze). Skin: General: Skin is warm and dry. Comments: Wounds of toes are less macerated today. Stable. New wounds of R lower leg are shallow venous wounds. Smaller. No evidence of cellulitis. See photos and measurements. Neurological: Mental Status: He is alert and oriented to person, place, and time. Psychiatric: Thought Content: Thought content normal. Wound/Incision 08/23/23 Lymphedema Toe - third Right;Anterior (Active) Wound Image 11/29/23 105 Site Assessment Fragile;Red;Sloughing;Swelling 11/29/23 1055 Carine-Wound Assessment Dry;Red 11/29/23 1055 Wound Length (cm) 1 cm 11/29/23 1055 Wound Width (cm) 3.3 cm 11/29/23 1055 Wound Surface Area (cm^2) 3.3 cm^2 11/29/23 1055 Wound Depth (cm) 0.1 cm 11/29/23 1055 Wound Volume (cm^3) 0.33 cm^3 11/29/23 1055 Wound Healing % -162 11/29/23 1055 Drainage Description Serosanguineous 11/29/23 1055 Odor None 11/29/23 1055 Drainage Amount Small 11/29/23 1055 Treatments Cleansed 11/29/23 1055 Primary Dressing Calcium alginate 11/29/23 1100 Secondary Dressing 4x4 gauze 11/29/23 1100 Secured with Kerlex;Silk tape 11/29/23 1100 Compression Double Layer tubigrip 11/08/23 1000 Dressing Status New dressing;Clean, dry & intact 11/29/23 1100 Wound/Incision 11/15/23 Venous Ulcer Leg Right;Lower;Anterior;Lateral (Active) Wound Image 11/29/23 1053 Site Assessment Red;Sloughing;Dark edges 11/29/23 1053 Carine-Wound Assessment Edema;Red;Excoriated 11/29/23 1053 Wound Length (cm) 1.5 cm 11/29/23 1053 Wound Width (cm) 1.4 cm 11/29/23 1053 Wound Surface Area (cm^2) 2.1 cm^2 11/29/23 1053 Wound Depth (cm) 0.1 cm 11/29/23 1053 Wound Volume (cm^3) 0.21 cm^3 11/29/23 1053 Wound Healing % 98 11/29/23 1053 Drainage Description Serosanguineous 11/29/23 1053 Odor None 11/29/23 1053 Drainage Amount Small 11/29/23 1053 Treatments Cleansed 11/29/23 1053 Primary Dressing Adaptic;Calcium alginate 11/29/23 1100 Secondary Dressing 4x4 gauze 11/29/23 1100 Secured with Kerlex;Silk tape 11/29/23 1100 Compression Multilayer compression wrap - 3 layers 11/29/23 1100 Dressing Status New dressing;Clean, dry & intact 11/29/23 1100 1. 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 Venous insufficiency (chronic) (peripheral) 3. Lymphedema 4. Decreased mobility Pt ed, reassure Continue alginate, but put adaptic directly only over leg wounds. Continue MLCD on R Reviewed s/s infection Reviewed activity/compression/elevation Reviewed protein/nutrition Recheck one wk, sooner prn Pt agrees with plan. PLAN: Patient examined and evaluated. Patient understands all that has been explained and wishes to proceed with current treatment. Patient understands all risks, benefits, procedures, carine-operative management, and possible complications. All questions answered and no guarantees made or implied. Please see attached Discharge Instructions documented in this encounter [facility] 11-29-2023 Hospital Discharge instructions Giuliana Radford RN - 11/29/2023 10:15 AM EDT Return Appointment in: 1 week - Should you experience any significant changes in your wound(s) or have any questions regarding your home care instructions please contact the wound center at [phone] If after regular business hours, please call your family doctor or local emergency room. Edema Control: Elevate legs to the level of the heart or above for 30 minutes daily and/or when sitting Additional Orders/Instructions: Follow diet per physicians instructions - such as increasing protein intake to promote wound healing. Please begin including a protein supplement/shake to patient's diet to help with wound healing Take antibiotic as directed Nursing Care Facility: [facility] Wound Treatment to R toes- Daily Cleanse wound with mild soap and water and pat dry. Apply Calcium Alginate Apply dry dressing to cover the wound and secure with tape. Wound Treatment to RLE: Weekly Cleanse wound with mild soap and water and pat dry. Apply Adaptic to wound beds Apply Calcium Alginate Apply Profore light Do not get wet. OK to shower if wound dressing covered Apply Barrier Cream to bilateral buttocks and sacral area daily and PRN. documented in this encounter [facility] 11-29-2023 Note [facility] Wound Care Progress Note CHIEF COMPLAINT: Wound Care HISTORY OF PRESENT ILLNESS: The patient is a 62 y.o. male arrives for recheck wounds of R toes and R lower leg. Feels toes improved since last visit. New lower leg wounds also improved. Denies f/c/n/v/d. REVIEW OF SYSTEMS: Review of Systems Constitutional: Negative. Negative for chills, fatigue and fever. See HPI Respiratory: Negative. Cardiovascular: Negative. Skin: Positive for wound. Negative for color change (from typical for patient) and rash. PHYSICAL EXAM: BP 114/73 (BP Location: Left arm, Patient Position: Sitting, BP Cuff Size: Large adult) Pulse 66 Temp 36.2 ?C (97.1 ?F) (Temporal) Physical Exam Vitals reviewed. Constitutional: General: He is not in acute distress. Appearance: Normal appearance. He is not ill-appearing or toxic-appearing. HENT: Ears: Comments: Hearing to conversational voice is normal. Pulmonary: Effort: Pulmonary effort is normal. Breath sounds: No wheezing (No audible wheeze). Skin: General: Skin is warm and dry. Comments: Wounds of toes are less macerated today. Stable. New wounds of R lower leg are shallow venous wounds. Smaller. No evidence of cellulitis. See photos and measurements. Neurological: Mental Status: He is alert and oriented to person, place, and time. Psychiatric: Thought Content: Thought content normal. Wound/Incision 08/23/23 Lymphedema Toe - third Right;Anterior (Active) Wound Image 11/29/23 1055 Site Assessment Fragile;Red;Sloughing;Swelling 11/29/23 105 Carine-Wound Assessment Dry;Red 11/29/23 1055 Wound Length (cm) 1 cm 11/29/23 105 Wound Width (cm) 3.3 cm 11/29/23 105 Wound Surface Area (cm^2) 3.3 cm^2 11/29/23 1055 Wound Depth (cm) 0.1 cm 11/29/23 105 Wound Volume (cm^3) 0.33 cm^3 11/29/23 105 Wound Healing % -162 11/29/23 1055 Drainage Description Serosanguineous 11/29/23 1055 Odor None 11/29/23 1055 Drainage Amount Small 11/29/23 1055 Treatments Cleansed 11/29/23 1055 Primary Dressing Calcium alginate 11/29/23 1100 Secondary Dressing 4x4 gauze 11/29/23 1100 Secured with Kerlex;Silk tape 11/29/23 1100 Compression Double Layer tubigrip 11/08/23 1000 Dressing Status New dressing;Clean, dry & intact 11/29/23 1100 Wound/Incision 11/15/23 Venous Ulcer Leg Right;Lower;Anterior;Lateral (Active) Wound Image 11/29/231052 Site Assessment Red;Sloughing;Dark edges 11/29/23 105 Carine-Wound Assessment Edema;Red;Excoriated 11/29/23 1053 Wound Length (cm) 1.5 cm 11/29/23 1053 Wound Width (cm) 1.4 cm 11/29/23 1053 Wound Surface Area (cm^2) 2.1 cm^2 11/29/23 1053 Wound Depth (cm) 0.1 cm 11/29/23 1053 Wound Volume (cm^3) 0.21 cm^3 11/29/23 1053 Wound Healing % 98 11/29/23 1053 Drainage Description Serosanguineous 11/29/23 1053 Odor None 11/29/23 1053 Drainage Amount Small 11/29/23 1053 Treatments Cleansed 11/29/23 1053 Primary Dressing Adaptic;Calcium alginate 11/29/23 1100 Secondary Dressing 4x4 gauze 11/29/23 1100 Secured with Kerlex;Silk tape 11/29/23 1100 Compression Multilayer compression wrap - 3 layers 11/29/23 1100 Dressing Status New dressing;Clean, dry & intact 11/29/23 1100 1. 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 Venous insufficiency (chronic) (peripheral) 3. Lymphedema 4. Decreased mobility Pt ed, reassure Continue alginate, but put adaptic directly only over leg wounds. Continue MLCD on R Reviewed s/s infection Reviewed activity/compression/elevation Reviewed protein/nutrition Recheck one wk, sooner prn Pt agrees with plan. PLAN: Patient examined and evaluated. Patient understands all that has been explained and wishes to proceed with current treatment. Patient understands all risks, benefits, procedures, carine-operative management, and possible complications. All questions answered and no guarantees made or implied. 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 [facility] Wound Care Progress Note CHIEF COMPLAINT: Wound Care HISTORY OF PRESENT ILLNESS: The patient is a 62 y.o. male arrives for recheck wounds of R toes and R lower leg. Feels toes stable since last visit. New lower leg wounds about the same, but no more redness or heat. Taking doxycycline as prescribed. Denies f/c/n/v/d. REVIEW OF SYSTEMS: Review of Systems Constitutional: Negative. Negative for chills, fatigue and fever. See HPI Respiratory: Negative. Cardiovascular: Negative. Skin: Positive for wound. Negative for color change (from typical for patient) and rash. PHYSICAL EXAM: BP 106/75 (BP Location: Right arm, Patient Position: Sitting, BP Cuff Size: Adult) Pulse 79 Temp 36.3 C (97.4 F) (Temporal) Physical Exam Vitals reviewed. Constitutional: General: He is not in acute distress. Appearance: Normal appearance. He is not ill-appearing or toxic-appearing. HENT: Ears: Comments: Hearing to conversational voice is normal. Pulmonary: Effort: Pulmonary effort is normal. Breath sounds: No wheezing (No audible wheeze). Skin: General: Skin is warm and dry. Comments: Wounds of toes are slightly macerated today. Stable. New wounds of R lower leg are shallow venous wounds. Aglinate stuck to wounds. See photos and measurements. Neurological: Mental Status: He is alert and oriented to person, place, and time. Psychiatric: Thought Content: Thought content normal. Wound/Incision 08/23/23 Lymphedema Toe - third Right;Anterior (Active) Wound Image 11/22/23 111 Site Assessment Fragile;Painful;Red;Sloughing 11/22/23 111 Carine-Wound Assessment Dry;Intact;Moist ;Red 11/22/23 1113 Wound Length (cm) 1.1 cm 11/22/23 1113 Wound Width (cm) 0.8 cm 11/22/23 1113 Wound Surface Area (cm^2) 0.88 cm^2 11/22/23 1113 Wound Depth (cm) 0.2 cm 11/22/23 1113 Wound Volume (cm^3) 0.176 cm^3 11/22/23 1113 Wound Healing % -40 11/22/23 1113 Drainage Description Serosanguineous 11/22/23 1113 Odor Mild 11/22/23 1113 Drainage Amount Small 11/22/23 1113 Treatments Cleansed 11/22/23 1113 Primary Dressing Calcium alginate 11/17/23 1000 Secondary Dressing 4x4 gauze 11/17/23 1000 Secured with Conforming kerlex;Paper tape 11/17/23 1000 Compression Double Layer tubigrip 11/08/23 1000 Dressing Status Clean, dry & intact;New dressing 11/17/23 1000 Wound/Incision 11/15/23 Venous Ulcer Leg Right;Lower;Anterior;Lateral (Active) Wound Image 11/22/23 111 Site Assessment Dry;Edema;Excoriated;Painful 11/22/23 111 Carine-Wound Assessment Boggy;Dry;Edema;Red 11/22/23 1110 Wound Length (cm) 21.1 cm 11/22/23 1110 Wound Width (cm) 5.8 cm 11/22/23 1110 Wound Surface Area (cm^2) 122.38 cm^2 11/22/23 1110 Wound Depth (cm) 0.1 cm 11/22/23 1110 Wound Volume (cm^3) 12.238 cm^3 11/22/23 1110 Wound Healing % -10 11/22/23 1110 Drainage Description Serosanguineous 11/22/23 1110 Odor Mild 11/22/23 1110 Drainage Amount Small 11/22/23 1110 Treatments Cleansed 11/22/23 1110 Primary Dressing Calcium alginate 11/17/23 1000 Secondary Dressing 4x4 gauze 11/17/23 1000 Secured with Kerlex;Paper tape 11/17/23 1000 Compression Multilayer compression wrap - 3 layers 11/17/23 1000 Dressing Status New dressing;Clean, dry & intact 11/17/23 1000 Debridement Wound/Incision 11/15/23 Venous Ulcer Leg Right;Lower;Anterior;Lateral Performed by: Julissa Taylor DO Authorized by: Julissa Taylor, DO Consent Consent obtained? verbal Consent given by: patient Risks discussed? procedural risks discussed Immediately prior to the procedure a time out was called and the performing provider verified the correct patient, procedure, equipment, cell support operator, and site/side marked as required. Debridement Details Performed by: physician Debridement type: surgical Level of debridement: subcutaneous tissue Pain control: lidocaine 2% Pain control administration type: topical Pre-debridement measurements Length (cm): 21.1 Width (cm): 5.8 Depth (cm): 0.1 Surface Area (cm^2): 122.38 Post-debridement measurements Length (cm): 21.1 Width (cm): 5.8 Depth (cm): 0.2 Percent debrided: 20% Surface Area (cm^2): 122.38 Area Debrided (cm^2): 24.48 Volume (cm^3): 24.48 Tissue and other material debrided: dermis, epidermis and subcutaneous tissue Devitalized tissue debrided: biofilm, slough and adherent product Instrument(s) utilized: curette and scissors Bleeding: small Hemostasis obtained with: pressure Procedural pain (0-10): 2 Post-procedural pain: 0 Response to treatment: procedure was tolerated well 1. 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 Venous insufficiency (chronic) (peripheral) 3. Lymphedema 4. Decreased mobility Pt ed, reassure Continue alginate, but put adaptic directly over leg wounds. Continue MLCD on R Complete the prescribed course of doxycycline. Reviewed s/s infection Reviewed activity/compression/elevation Reviewed protein/nutrition Recheck one wk, sooner prn Pt agrees with plan. PLAN: Patient examined and evaluated. Patient understands all that has been explained and wishes to proceed with current treatment. Patient understands all risks, benefits, procedures, carine-operative management, and possible complications. All questions answered and no guarantees made or implied. Please see attached Discharge Instructions documented in this encounter [facility] 11-22-2023 Hospital Discharge instructions Giuliana Radford RN - 11/22/2023 10:45 AM EDT Return Appointment in: 1 week - Should you experience any significant changes in your wound(s) or have any questions regarding your home care instructions please contact the wound center at [phone] If after regular business hours, please call your family doctor or local emergency room. Edema Control: Elevate legs to the level of the heart or above for 30 minutes daily and/or when sitting Additional Orders/Instructions: Follow diet per physicians instructions - such as increasing protein intake to promote wound healing. Please begin including a protein supplement/shake to patient's diet to help with wound healing Take antibiotic as directed Nursing Care Facility: [facility] Wound Treatment to R toes- Daily Cleanse wound with mild soap and water and pat dry. Apply Adaptic to wound bed Apply Calcium Alginate Apply dry dressing to cover the wound and secure with tape. Wound Treatment to RLE: Weekly Cleanse wound with mild soap and water and pat dry. Apply Adapt to wound beds Apply Calcium Alginate Apply Profore light Do not get wet. OK to shower if wound dressing covered Apply Barrier Cream to bilateral buttocks and sacral area daily and PRN. documented in this encounter [facility] 11-22-2023 Note [facility] Wound Care Progress Note CHIEF COMPLAINT: Wound Care HISTORY OF PRESENT ILLNESS: The patient is a 62 y.o. male arrives for recheck wounds of R toes and R lower leg. Feels toes stable since last visit. New lower leg wounds about the same, but no more redness or heat. Taking doxycycline as prescribed. Denies f/c/n/v/d. REVIEW OF SYSTEMS: Review of Systems Constitutional: Negative. Negative for chills, fatigue and fever. See HPI Respiratory: Negative. Cardiovascular: Negative. Skin: Positive for wound. Negative for color change (from typical for patient) and rash. PHYSICAL EXAM: BP 106/75 (BP Location: Right arm, Patient Position: Sitting, BP Cuff Size: Adult) Pulse 79 Temp 36.3 ?C (97.4 ?F) (Temporal) Physical Exam Vitals reviewed. Constitutional: General: He is not in acute distress. Appearance: Normal appearance. He is not ill-appearing or toxic-appearing. HENT: Ears: Comments: Hearing to conversational voice is normal. Pulmonary: Effort: Pulmonary effort is normal. Breath sounds: No wheezing (No audible wheeze). Skin: General: Skin is warm and dry. Comments: Wounds of toes are slightly macerated today. Stable. New wounds of R lower leg are shallow venous wounds. Aglinate stuck to wounds. See photos and measurements. Neurological: Mental Status: He is alert and oriented to person, place, and time. Psychiatric: Thought Content: Thought content normal. Wound/Incision 08/23/23 Lymphedema Toe - third Right;Anterior (Active) Wound Image 11/22/23 1113 Site Assessment Fragile;Painful;Red;Sloughing 11/22/23 1113 Carine-Wound Assessment Dry;Intact;Moist ;Red 11/22/23 1113 Wound Length (cm) 1.1 cm 11/22/23 1113 Wound Width (cm) 0.8 cm 11/22/23 1113 Wound Surface Area (cm^2) 0.88 cm^2 11/22/23 1113 Wound Depth (cm) 0.2 cm 11/22/23 1113 Wound Volume (cm^3) 0.176 cm^3 11/22/23 1113 Wound Healing % -40 11/22/23 1113 Drainage Description Serosanguineous 11/22/23 1113 Odor Mild 11/22/23 1113 Drainage Amount Small 11/22/23 1113 Treatments Cleansed 11/22/23 1113 Primary Dressing Calcium alginate 11/17/23 1000 Secondary Dressing 4x4 gauze 11/17/23 1000 Secured with Conforming kerlex;Paper tape 11/17/23 1000 Compression Double Layer tubigrip 11/08/23 1000 Dressing Status Clean, dry & intact;New dressing 11/17/23 1000 Wound/Incision 11/15/23 Venous Ulcer Leg Right;Lower;Anterior;Lateral (Active) Wound Image 11/22/23 1110 Site Assessment Dry;Edema;Excoriated;Painful 11/22/23 1110 Carine-Wound Assessment Boggy;Dry;Edema;Red 11/22/23 1110 Wound Length (cm) 21.1 cm 11/22/23 1110 Wound Width (cm) 5.8 cm 11/22/23 1110 Wound Surface Area (cm^2) 122.38 cm^2 11/22/23 1110 Wound Depth (cm) 0.1 cm 11/22/23 1110 Wound Volume (cm^3) 12.238 cm^3 11/22/23 1110 Wound Healing % -10 11/22/23 1110 Drainage Description Serosanguineous 11/22/23 1110 Odor Mild 11/22/23 1110 Drainage Amount Small 11/22/23 1110 Treatments Cleansed 11/22/23 1110 Primary Dressing Calcium alginate 11/17/23 1000 Secondary Dressing 4x4 gauze 11/17/23 1000 Secured with Kerlex;Paper tape 11/17/23 1000 Compression Multilayer compression wrap - 3 layers 11/17/23 1000 Dressing Status New dressing;Clean, dry & intact 11/17/23 1000 1. 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 Venous insufficiency (chronic) (peripheral) 3. Lymphedema 4. Decreased mobility Pt ed, reassure Continue alginate, but put adaptic directly over leg wounds. Continue MLCD on R Complete the prescribed course of doxycycline. Reviewed s/s infection Reviewed activity/compression/elevation Reviewed protein/nutrition Recheck one wk, sooner prn Pt agrees with plan. PLAN: Patient examined and evaluated. Patient understands all that has been explained and wishes to proceed with current treatment. Patient understands all risks, benefits, procedures, carine-operative management, and possible complications. All questions answered and no guarantees made or implied. Please see attached Discharge Instructions [facility] 11-22-2023 Note [facility] Wound Care Progress Note CHIEF COMPLAINT: Wound Care HISTORY OF PRESENT ILLNESS: The patient is a 62 y.o. male arrives for recheck wounds of R toes and R lower leg. Feels toes stable since last visit. New lower leg wounds about the same, but no more redness or heat. Taking doxycycline as prescribed. Denies f/c/n/v/d. REVIEW OF SYSTEMS: Review of Systems Constitutional: Negative. Negative for chills, fatigue and fever. See HPI Respiratory: Negative. Cardiovascular: Negative. Skin: Positive for wound. Negative for color change (from typical for patient) and rash. PHYSICAL EXAM: BP 106/75 (BP Location: Right arm, Patient Position: Sitting, BP Cuff Size: Adult) Pulse 79 Temp 36.3 ?C (97.4 ?F) (Temporal) Physical Exam Vitals reviewed. Constitutional: General: He is not in acute distress. Appearance: Normal appearance. He is not ill-appearing or toxic-appearing. HENT: Ears: Comments: Hearing to conversational voice is normal. Pulmonary: Effort: Pulmonary effort is normal. Breath sounds: No wheezing (No audible wheeze). Skin: General: Skin is warm and dry. Comments: Wounds of toes are slightly macerated today. Stable. New wounds of R lower leg are shallow venous wounds. Aglinate stuck to wounds. See photos and measurements. Neurological: Mental Status: He is alert and oriented to person, place, and time. Psychiatric: Thought Content: Thought content normal. Wound/Incision 08/23/23 Lymphedema Toe - third Right;Anterior (Active) Wound Image 11/22/23 1113 Site Assessment Fragile;Painful;Red;Sloughing 11/22/23 1113 Carine-Wound Assessment Dry;Intact;Moist ;Red 11/22/23 1113 Wound Length (cm) 1.1 cm 11/22/23 1113 Wound Width (cm) 0.8 cm 11/22/23 1113 Wound Surface Area (cm^2) 0.88 cm^2 11/22/23 1113 Wound Depth (cm) 0.2 cm 11/22/23 1113 Wound Volume (cm^3) 0.176 cm^3 11/22/23 1113 Wound Healing % -40 11/22/23 1113 Drainage Description Serosanguineous 11/22/23 1113 Odor Mild 11/22/23 1113 Drainage Amount Small 11/22/23 1113 Treatments Cleansed 11/22/23 1113 Primary Dressing Calcium alginate 11/17/23 1000 Secondary Dressing 4x4 gauze 11/17/23 1000 Secured with Conforming kerlex;Paper tape 11/17/23 1000 Compression Double Layer tubigrip 11/08/23 1000 Dressing Status Clean, dry & intact;New dressing 11/17/23 1000 Wound/Incision 11/15/23 Venous Ulcer Leg Right;Lower;Anterior;Lateral (Active) Wound Image 11/22/23 1110 Site Assessment Dry;Edema;Excoriated;Painful 11/22/23 1110 Carine-Wound Assessment Boggy;Dry;Edema;Red 11/22/23 1110 Wound Length (cm) 21.1 cm 11/22/23 1110 Wound Width (cm) 5.8 cm 11/22/23 1110 Wound Surface Area (cm^2) 122.38 cm^2 11/22/23 1110 Wound Depth (cm) 0.1 cm 11/22/23 1110 Wound Volume (cm^3) 12.238 cm^3 11/22/23 1110 Wound Healing % -10 11/22/23 1110 Drainage Description Serosanguineous 11/22/23 1110 Odor Mild 11/22/23 1110 Drainage Amount Small 11/22/23 1110 Treatments Cleansed 11/22/23 1110 Primary Dressing Calcium alginate 11/17/23 1000 Secondary Dressing 4x4 gauze 11/17/23 1000 Secured with Kerlex;Paper tape 11/17/23 1000 Compression Multilayer compression wrap - 3 layers 11/17/23 1000 Dressing Status New dressing;Clean, dry & intact 11/17/23 1000 Debridement Wound/Incision 11/15/23 Venous Ulcer Leg Right;Lower;Anterior;Lateral Performed by: Julissa Taylor DO Authorized by: Julissa Taylor, DO Consent Consent obtained? verbal Consent given by: patient Risks discussed? procedural risks discussed Immediately prior to the procedure a time out was called and the performing provider verified the correct patient, procedure, equipment, cell support operator, and site/side marked as required. Debridement Details Performed by: physician Debridement type: surgical Level of debridement: subcutaneous tissue Pain control: lidocaine 2% Pain control administration type: topical Pre-debridement measurements Length (cm): 21.1 Width (cm): 5.8 Depth (cm): 0.1 Surface Area (cm^2): 122.38 Post-debridement measurements Length (cm): 21.1 Width (cm): 5.8 Depth (cm): 0.2 Percent debrided: 20% Surface Area (cm^2): 122.38 Area Debrided (cm^2): 24.48 Volume (cm^3): 24.48 Tissue and other material debrided: dermis, epidermis and subcutaneous tissue Devitalized tissue debrided: biofilm, slough and adherent product Instrument(s) utilized: curette and scissors Bleeding: small Hemostasis obtained with: pressure Procedural pain (0-10): 2 Post-procedural pain: 0 Response to treatment: procedure was tolerated well 1. 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 Venous insufficiency (chronic) (peripheral) 3. Lymphedema 4. Decreased mobility Pt ed, reassure Continue alginate, but put adaptic directly over leg wounds. Continue MLCD on R Complete the prescribed course of doxycycline. Reviewed s/s infection Reviewed ac (more content not included)... [facility] 11-17-2023 History of Present illness Narrative Images from the original note were not included. [facility] Nurse Visit Note Moises Madrid AGE: 62 y.o. GENDER: male : 1960 EPISODE DATE: 11/17/23 Arrival Information: Patient Arrived: Wheelchair Transfer Assistance: None Accompanied by: caregiver Any changes in medical history since last visit: No Added or removed any Medications: No Any new allergies: No Any falls since last visit: No Any hospitalizations or surgeries since last visit: No Assessment: Vitals: 11/17/23 1035 BP: 119/83 Pulse: 81 Resp: 18 Temp: 36.2 C (97.1 F) Wound/Incision 08/23/23 Lymphedema Toe - third Right;Anterior (Active) Wound Image 11/15/23 1109 Site Assessment Painful;Red;Sloughing 11/15/23 1109 [place]-Wound Assessment Dry 11/15/23 1109 Wound Length (cm) 1.5 cm 11/15/23 1109 Wound Width (cm) 2.9 cm 11/15/23 1109 Wound Surface Area (cm^2) 4.35 cm^2 11/15/23 1109 Wound Depth (cm) 0.3 cm 11/15/23 1109 Wound Volume (cm^3) 1.305 cm^3 11/15/23 1109 Wound Healing % -936 11/15/23 1109 Drainage Description Serosanguineous 11/17/23 1000 Odor None 11/15/23 1109 Drainage Amount Large 11/17/23 1000 Treatments Cleansed 11/17/23 1000 Primary Dressing Calcium alginate 11/17/23 1000 Secondary Dressing 4x4 gauze 11/17/23 1000 Secured with Conforming kerlex;Paper tape 11/17/23 1000 Compression Double Layer tubigrip 11/08/23 1000 Dressing Status Clean, dry & intact;New dressing 11/17/23 1000 Wound/Incision 11/15/23 Venous Ulcer Leg Right;Lower;Anterior;Lateral (Active) Wound Image 11/15/23 1110 Site Assessment Bleeding;Painful;Red 11/15/23 1110 [place]-Wound Assessment Dark edges;Dry;Erythematous 11/15/23 1110 Wound Length (cm) 18.5 cm 11/15/23 1110 Wound Width (cm) 6 cm 11/15/23 1110 Wound Surface Area (cm^2) 111 cm^2 11/15/23 1110 Wound Depth (cm) 0.1 cm 11/15/23 1110 Wound Volume (cm^3) 11.1 cm^3 11/15/23 1110 Drainage Description Serosanguineous 11/17/23 1000 Odor None 11/15/23 1110 Drainage Amount Moderate 11/17/23 1000 Treatments Cleansed 11/17/23 1000 Primary Dressing Calcium alginate 11/17/23 1000 Secondary Dressing 4x4 gauze 11/17/23 1000 Secured with Kerlex;Paper tape 11/17/23 1000 Compression Multilayer compression wrap - 3 layers 11/17/23 1000 Dressing Status New dressing;Clean, dry & intact 11/17/23 1000 Treatment: Wound: lateral right leg and third right toe Patient was seen for a nurse visit to have wound dressings/wraps changed. Dressing was removed. Wounds were cleansed with hibiclens and water. Calcium alginate, kerlex dressing was applied to wounds 3-layer multi layer wrap compression wrap was applied to right lower leg per provider's orders. Discharge Information: Patient was discharged in stable condition. Ambulatory Status: Wheelchair Discharge Destination: retirement facility Transportation: Private Auto Accompanied by: caregiver Schedule Follow up Appointment: no No orders of the defined types were placed in this encounter. documented in this encounter [facility] 11-17-2023 Note Encounter addended b y: Marycarmen Corona RN on: 11/20/2023 7:52 AM Actions taken: Care Teams modified, Charge Capture section accepted [facility] 11-15-2023 History of Present illness Narrative Images from the original note were not included. [facility] Wound Care Progress Note CHIEF COMPLAINT: Wound Care HISTORY OF PRESENT ILLNESS: The patient is a 62 y.o. male arrives for recheck wounds of R toes. Feels toes have improved since last visit, but has new lower leg wounds since switching to double tubigrip. States these new wounds are warm to touch. Has some fatigue today. Denies f/c/n/v/d. REVIEW OF SYSTEMS: Review of Systems Constitutional: Negative. Negative for chills, fatigue and fever. See HPI Respiratory: Negative. Cardiovascular: Negative. Skin: Positive for wound. Negative for color change (from typical for patient) and rash. PHYSICAL EXAM: BP 102/69 (BP Location: Right arm, Patient Position: Sitting, BP Cuff Size: Large adult) Pulse 62 Temp 36.4 C (97.6 F) (Temporal) Resp 18 Physical Exam Vitals reviewed. Constitutional: General: He is not in acute distress. Appearance: Normal appearance. He is not ill-appearing or toxic-appearing. HENT: Ears: Comments: Hearing to conversational voice is normal. Pulmonary: Effort: Pulmonary effort is normal. Breath sounds: No wheezing (No audible wheeze). Skin: General: Skin is warm and dry. Comments: Wounds of toes are not macerated today. Showing some visible measure of improvement. New wounds of R lower leg are shallow venous wounds, but periwound skin is more red and warm to touch than surrounding tissue. Some local edema and tenderness. See photos and measurements. Neurological: Mental Status: He is alert and oriented to person, place, and time. Psychiatric: Thought Content: Thought content normal. Wound/Incision 08/23/23 Lymphedema Toe - third Right;Anterior (Active) Wound Image 11/15/23 1109 Site Assessment Painful;Red;Sloughing 11/15/23 1109 [place]-Wound Assessment Dry 11/15/23 1109 Wound Length (cm) 1.5 cm 11/15/23 1109 Wound Width (cm) 2.9 cm 11/15/23 1109 Wound Surface Area (cm^2) 4.35 cm^2 11/15/23 1109 Wound Depth (cm) 0.3 cm 11/15/23 1109 Wound Volume (cm^3) 1.305 cm^3 11/15/23 1109 Wound Healing % -936 11/15/23 1109 Drainage Description Serosanguineous 11/15/23 1109 Odor None 11/15/23 1109 Drainage Amount Large 11/15/23 1109 Treatments Cleansed 11/15/23 1109 Primary Dressing Alginate 11/08/23 1000 Secondary Dressing 4x4 gauze 11/08/23 1000 Secured with Kerlex;Silk tape 11/08/23 1000 Compression Double Layer tubigrip 11/08/23 1000 Dressing Status New dressing;Clean, dry & intact 10/18/23 1044 Wound/Incision 11/15/23 Venous Ulcer Leg Right;Lower;Anterior;Lateral (Active) Wound Image 11/15/23 1110 Site Assessment Bleeding;Painful;Red 11/15/23 1110 [place]-Wound Assessment Dark edges;Dry;Erythematous 11/15/23 1110 Wound Length (cm) 18.5 cm 11/15/23 1110 Wound Width (cm) 6 cm 11/15/23 1110 Wound Surface Area (cm^2) 111 cm^2 11/15/23 1110 Wound Depth (cm) 0.1 cm 11/15/23 1110 Wound Volume (cm^3) 11.1 cm^3 11/15/23 1110 Drainage Description Serosanguineous 11/15/23 1110 Odor None 11/15/23 1110 Drainage Amount Large 11/15/23 1110 Treatments Cleansed 11/15/23 1110 1. 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 Venous insufficiency (chronic) (peripheral) 3. Lymphedema 4. Decreased mobility 5. Cellulitis of right lower leg Pt ed, reassure Continue alginate Back to MLCD on R from double tubigrip Recheck nurse visit in 2 days for evaluation and MLCD change Reviewed s/s infection Reviewed activity/compression/elevation Reviewed protein/nutrition Recheck one wk, sooner prn Pt agrees with plan. PLAN: Patient examined and evaluated. Patient understands all that has been explained and wishes to proceed with current treatment. Patient understands all risks, benefits, procedures, carine-operative management, and possible complications. All questions answered and no guarantees made or implied. Please see attached Discharge Instructions Assessments Nursing Assessment/Reassessment Score (check box all that apply) Reassessment of Co-morbidities (includes updates in patient status) 10 [x] Wound and Skin Assessment/Reassessment 5 [x] Reassessment of Adherence to Treatment Plan Simple Wound Assessment / Reassessment - one wound 5 [] Complex Wound Assessment - multiple wounds (# of: 2 ) multiply by 5 to get score 10 [x] Dermatologic / Skin Assessment (not related to wound area) 10 [x] Focused Assessment Circumferential Edema Measurements - multi extremities (# of: 0) multiply by 5 to get score 0 [] Nutritional Assessment/Counseling/Intervention 10 [] Lower Extremity Assessment (monofilament, tuning fork, pulses) 5 [] Peripheral Arterial Disease Assessment (using hand-held doppler) 10 [] Ostomy and/or Continence Assessment & Care Incontinence Assessment and Management 10 [] Ostomy Care Assessment and Management (repouching, etc) 20 [] Process Coordination of Care Simple Patient/Family Education for ongoing care 15 [x] Complex (extensive) Patient/Family Education for ongoing of care 20 [] Staff obtains Consent, Records, Test Results/Process Orders 10 [] Staff telephones [facility], Nursing Homes/Clarify Orders 10 [] Routine Transfer to another Facility (non-emergent condition) 10 [] Routine Hospital Admission (non-emergent condition) 10 [] New Admissions/Insurance Auth/Ordering NPWT, skin substitute, etc. 15 [] Emergency Hospital Admission (emergent condition) 20 [] Simple Discharge Coordination 10 [] Complex (extensive) Discharge Coordination 15 [] Special Needs Pediatric / Minor Patient Management 10 [] Isolation Patient Management 10 [] Hearing/Language/Visual Special Needs 15 [] Assessment of Community Assistance (transportation, discharge planning) 15 [] Additional Assistance / Altered Mentation 15 [] Support Surface Assessment (bed, cushion, seat) 15 [] Interventions Wound Cleansing/Measurement Simple Wound Cleansing - one wound 5 [] Complex Wound Cleansing - multiple wounds (# of: 2) multiply by 5 to get score 10 [x] Wound Imaging (photographs - any number of wounds) 5 [x] Wound Tracing (instead of photographs) 5 [] Simple Wound Measurements - one wound 5 [] Complex Wound Measuremnts - multiple wounds (#of: 2) multiply by 5 to get score 10 [x] Wound Dressings Small Wound Dressing - one or multiple wounds (# of: 0 ) multiply by 10 to get score 0 [] Medium Wound Dressing - one or multiple wounds (# of: 2 ) multiply by 15 to get score 30 [x] Large Wound Dressing - one or multiple wounds (# of: 0) multiply by 20 to get score 0 [] Application of Medications - topical 5 [] Application of Medication - injection 10 [] Miscellaneous External Ear Exam Specimen Collection (culture, biopsies, blood, body fluids, etc) 5 [] Specimen/Culture sent or taken to lab for analysis 5 [] Patient Transfer (multiple staff/Darrin lift) 10 [] Simple Staple/Suture Removal (25 or less) 5 [] Complex Staple/Suture Removal (26 or more) 10 [] Hypo/Hyperglycemic Management 10 [] Ankle/Brachial Index (JULES) 15 [] Vital Signs 5 [x] Total Points - Use to Determine Level of Clinic Visit 110 Points [place]: Level 1 (1-35 Points) Level 2 (40-75 Points) Level 3 (80-115 Points) Level 4 (120-155 Points) Level 5 (160 or more Points) documented in this encounter [facility] 11-15-2023 Hospital Discharge instructions Giuliana Radford RN - 11/15/2023 10:45 AM EDT Return Appointment in: 1 week - Should you experience any significant changes in your wound(s) or have any questions regarding your home care instructions please contact the wound center at [phone] If after regular business hours, please call your family doctor or local emergency room. Edema Control: Elevate legs to the level of the heart or above for 30 minutes daily and/or when sitting Additional Orders/Instructions: Follow diet per physicians instructions - such as increasing protein intake to promote wound healing. Please begin including a protein supplement/shake to patient's diet to help with wound healing Take antibiotic as directed Nursing Care Facility: [facility] Wound Treatment to R toes- Daily Cleanse wound with mild soap and water and pat dry. Apply Calcium Alginate Apply dry dressing to cover the wound and secure with tape. Wound Treatment to RLE: Cleanse wound with mild soap and water and pat dry. Apply Calcium Alginate Apply Profore light return to center on Monday 8/ Do not get wet. OK to shower if wound dressing covered Apply Barrier Cream to bilateral buttocks and sacral area daily and PRN. documented in this encounter [facility] 11-15-2023 Note [facility] Wound Care Progress Note CHIEF COMPLAINT: Wound Care HISTORY OF PRESENT ILLNESS: The patient is a 62 y.o. male arrives for recheck wounds of R toes. Feels toes have improved since last visit, but has new lower leg wounds since switching to double tubigrip. States these new wounds are warm to touch. Has some fatigue today. Denies f/c/n/v/d. REVIEW OF SYSTEMS: Review of Systems Constitutional: Negative. Negative for chills, fatigue and fever. See HPI Respiratory: Negative. Cardiovascular: Negative. Skin: Positive for wound. Negative for color change (from typical for patient) and rash. PHYSICAL EXAM: BP 102/69 (BP Location: Right arm, Patient Position: Sitting, BP Cuff Size: Large adult) Pulse 62 Temp 36.4 ?C (97.6 ?F) (Temporal) Resp 18 Physical Exam Vitals reviewed. Constitutional: General: He is not in acute distress. Appearance: Normal appearance. He is not ill-appearing or toxic-appearing. HENT: Ears: Comments: Hearing to conversational voice is normal. Pulmonary: Effort: Pulmonary effort is normal. Breath sounds: No wheezing (No audible wheeze). Skin: General: Skin is warm and dry. Comments: Wounds of toes are not macerated today. Showing some visible measure of improvement. New wounds of R lower leg are shallow venous wounds, but periwound skin is more red and warm to touch than surrounding tissue. Some local edema and tenderness. See photos and measurements. Neurological: Mental Status: He is alert and oriented to person, place, and time. Psychiatric: Thought Content: Thought content normal. Wound/Incision 08/23/23 Lymphedema Toe - third Right;Anterior (Active) Wound Image 11/15/23 1109 Site Assessment Painful;Red;Sloughing 11/15/23 1109 [place]-Wound Assessment Dry 11/15/23 1109 Wound Length (cm) 1.5 cm 11/15/23 1109 Wound Width (cm) 2.9 cm 11/15/23 1109 Wound Surface Area (cm^2) 4.35 cm^2 11/15/23 1109 Wound Depth (cm) 0.3 cm 11/15/23 1109 Wound Volume (cm^3) 1.305 cm^3 11/15/23 1109 Wound Healing % -936 11/15/23 1109 Drainage Description Serosanguineous 11/15/23 1109 Odor None 11/15/23 1109 Drainage Amount Large 11/15/23 1109 Treatments Cleansed 11/15/23 1109 Primary Dressing Alginate 11/08/23 1000 Secondary Dressing 4x4 gauze 11/08/23 1000 Secured with Kerlex;Silk tape 11/08/23 1000 Compression Double Layer tubigrip 11/08/23 1000 Dressing Status New dressing;Clean, dry & intact 10/18/23 1044 Wound/Incision 11/15/23 Venous Ulcer Leg Right;Lower;Anterior;Lateral (Active) Wound Image 11/15/23 1110 Site Assessment Bleeding;Painful;Red 11/15/23 1110 [place]-Wound Assessment Dark edges;Dry;Erythematous 11/15/23 1110 Wound Length (cm) 18.5 cm 11/15/23 1110 Wound Width (cm) 6 cm 11/15/23 1110 Wound Surface Area (cm^2) 111 cm^2 11/15/23 1110 Wound Depth (cm) 0.1 cm 11/15/23 1110 Wound Volume (cm^3) 11.1 cm^3 11/15/23 1110 Drainage Description Serosanguineous 11/15/23 1110 Odor None 11/15/23 1110 Drainage Amount Large 11/15/23 1110 Treatments Cleansed 11/15/23 1110 1. 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 Venous insufficiency (chronic) (peripheral) 3. Lymphedema 4. Decreased mobility 5. Cellulitis of right lower leg Pt ed, reassure Continue alginate Back to MLCD on R from double tubigrip Recheck nurse visit in 2 days for evaluation and MLCD change Reviewed s/s infection Reviewed activity/compression/elevation Reviewed protein/nutrition Recheck one wk, sooner prn Pt agrees with plan. PLAN: Patient examined and evaluated. Patient understands all that has been explained and wishes to proceed with current treatment. Patient understands all risks, benefits, procedures, carine-operative management, and possible complications. All questions answered and no guarantees made or implied. Please see attached Discharge Instructions [facility] 11-08-2023 History of Present illness Narrative Images from the original note were not included. [facility] Wound Care Progress Note CHIEF COMPLAINT: Wound Care HISTORY OF PRESENT ILLNESS: The patient is a 62 y.o. male arrives for recheck wounds of R toes. Feels there is little improvement since last visit. Report that again dressings haven't been changed as per orders. REVIEW OF SYSTEMS: Review of Systems Constitutional: Negative. Negative for chills, fatigue and fever. See HPI Respiratory: Negative. Cardiovascular: Negative. Skin: Positive for wound. Negative for color change (from typical for patient) and rash. PHYSICAL EXAM: BP (!) 140/71 (BP Location: Right arm, Patient Position: Sitting, BP Cuff Size: Large adult) Pulse 91 Temp 36.8 C (98.3 F) (Temporal) Resp 20 Physical Exam Vitals reviewed. Constitutional: General: He is not in acute distress. Appearance: Normal appearance. He is not ill-appearing or toxic-appearing. HENT: Ears: Comments: Hearing to conversational voice is normal. Pulmonary: Effort: Pulmonary effort is normal. Breath sounds: No wheezing (No audible wheeze). Skin: General: Skin is warm and dry. Comments: Wounds of toes are macerated. See photos and measurements. Neurological: Mental Status: He is alert and oriented to person, place, and time. Psychiatric: Thought Content: Thought content normal. Wound/Incision 08/23/23 Lymphedema Toe - third Right;Anterior (Active) Wound Image 11/08/23 09 Site Assessment Painful;Pale;[place];Red;Sloughing 11/08/23 09 Car[place]-Wound Assessment Macerated;Moist ;Painful 11/08/23 09 Wound Length (cm) 6 cm 11/08/23945 Wound Width (cm) 6.5 cm 11/08/23 09 Wound Surface Area (cm^2) 39 cm^2 11/08/23 09 Wound Depth (cm) 0.3 cm 11/08/23945 Wound Volume (cm^3) 11.7 cm^3 11/08/23 09 Wound Healing % -9186 11/08/23945 Drainage Description Serosanguineous 11/08/23 0946 Odor Mild 11/08/23 09 Drainage Amount Large 11/08/23 0946 Treatments Cleansed 11/08/23 0946 Primary Dressing Alginate 11/08/23 1000 Secondary Dressing 4x4 gauze 11/08/23 1000 Secured with Kerlex;Silk tape 11/08/23 1000 Compression Double Layer tubigrip 11/08/23 1000 Dressing Status New dressing;Clean, dry & intact 10/18/23 1044 1. 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 Venous insufficiency (chronic) (peripheral) 3. Lymphedema 4. Decreased mobility Pt ed, reassurance to pt and attendant, present for entire visit Since his facility doesn't have blue or sorbex, we will use alginate. Switch from MLCD on R to double tubigrip Reviewed s/s infection Reviewed activity/compression/elevation Reviewed protein/nutrition Recheck one wk, sooner prn Pt agrees with plan. PLAN: Patient examined and evaluated. Patient understands all that has been explained and wishes to proceed with current treatment. Patient understands all risks, benefits, procedures, carine-operative management, and possible complications. All questions answered and no guarantees made or implied. Please see attached Discharge Instructions Assessments Nursing Assessment/Reassessment Score (check box all that apply) Reassessment of Co-morbidities (includes updates in patient status) 10 [x] Wound and Skin Assessment/Reassessment 5 [x] Reassessment of Adherence to Treatment Plan Simple Wound Assessment / Reassessment - one wound 5 [] Complex Wound Assessment - multiple wounds (# of: 2 ) multiply by 5 to get score 10 [x] Dermatologic / Skin Assessment (not related to wound area) 10 [x] Focused Assessment Circumferential Edema Measurements - multi extremities (# of: 0) multiply by 5 to get score 0 [] Nutritional Assessment/Counseling/Intervention 10 [] Lower Extremity Assessment (monofilament, tuning fork, pulses) 5 [] Peripheral Arterial Disease Assessment (using hand-held doppler) 10 [] Ostomy and/or Continence Assessment & Care Incontinence Assessment and Management 10 [] Ostomy Care Assessment and Management (repouching, etc) 20 [] Process Coordination of Care Simple Patient/Family Education for ongoing care 15 [x] Complex (extensive) Patient/Family Education for ongoing of care 20 [] Staff obtains Consent, Records, Test Results/Process Orders 10 [x] Staff telephones [facility], Nursing Homes/Clarify Orders 10 [x] Routine Transfer to another Facility (non-emergent condition) 10 [] Routine Hospital Admission (non-emergent condition) 10 [] New Admissions/Insurance Auth/Ordering NPWT, skin substitute, etc. 15 [] Emergency Hospital Admission (emergent condition) 20 [] Simple Discharge Coordination 10 [] Complex (extensive) Discharge Coordination 15 [] Special Needs Pediatric / Minor Patient Management 10 [] Isolation Patient Management 10 [] Hearing/Language/Visual Special Needs 15 [] Assessment of Community Assistance (transportation, discharge planning) 15 [] Additional Assistance / Altered Mentation 15 [] Support Surface Assessment (bed, cushion, seat) 15 [] Interventions Wound Cleansing/Measurement Simple Wound Cleansing - one wound 5 [] Complex Wound Cleansing - multiple wounds (# of: 2) multiply by 5 to get score 10 [x] Wound Imaging (photographs - any number of wounds 5 [x] Wound Tracing (instead of photographs) 5 [] Simple Wound Measurements - one wound 5 [x] Complex Wound Measuremnts - multiple wounds (#of: 0) multiply by 5 to get score 0 [] Wound Dressings Small Wound Dressing - one or multiple wounds (# of: 10) multiply by 10 to get score 10 [x] Medium Wound Dressing - one or multiple wounds (# of: 2 ) multiply by 15 to get score 0 Large Wound Dressing - one or multiple wounds (# of: 0) multiply by 20 to get score 0 [] Application of Medications - topical 5 [x] Application of Medication - injection 10 [] Miscellaneous External Ear Exam Specimen Collection (culture, biopsies, blood, body fluids, etc) 5 [] Specimen/Culture sent or taken to lab for analysis 5 [] Patient Transfer (multiple staff/Darrin lift) 10 [] Simple Staple/Suture Removal (25 or less) 5 [] Complex Staple/Suture Removal (26 or more) 10 [] Hypo/Hyperglycemic Management 10 [] Ankle/Brachial Index (JULES) 15 [] Vital Signs 5 [x] Total Points - Use to Determine Level of Clinic Visit 110 Points [place]: Level 1 (1-35 Points) Level 2 (40-75 Points) Level 3 (80-115 Points) Level 4 (120-155 Points) Level 5 (160 or more Points) documented in this encounter [facility] 11-08-2023 History of Present illness Narrative Images from the original note were not included. [facility] Wound Care Progress Note CHIEF COMPLAINT: Wound Care HISTORY OF PRESENT ILLNESS: The patient is a 62 y.o. male arrives for recheck wounds of R toes. Feels there is little improvement since last visit. Report that again dressings haven't been changed as per orders. REVIEW OF SYSTEMS: Review of Systems Constitutional: Negative. Negative for chills, fatigue and fever. See HPI Respiratory: Negative. Cardiovascular: Negative. Skin: Positive for wound. Negative for color change (from typical for patient) and rash. PHYSICAL EXAM: BP (!) 140/71 (BP Location: Right arm, Patient Position: Sitting, BP Cuff Size: Large adult) Pulse 91 Temp 36.8 C (98.3 F) (Temporal) Resp 20 Physical Exam Vitals reviewed. Constitutional: General: He is not in acute distress. Appearance: Normal appearance. He is not ill-appearing or toxic-appearing. HENT: Ears: Comments: Hearing to conversational voice is normal. Pulmonary: Effort: Pulmonary effort is normal. Breath sounds: No wheezing (No audible wheeze). Skin: General: Skin is warm and dry. Comments: Wounds of toes are macerated. See photos and measurements. Neurological: Mental Status: He is alert and oriented to person, place, and time. Psychiatric: Thought Content: Thought content normal. Wound/Incision 08/23/23 Lymphedema Toe - third Right;Anterior (Active) Wound Image 11/08/23945 Site Assessment Painful;Pale;[place];Red;Sloughing 11/08/23945 Carine-Wound Assessment Macerated;Moist ;Painful 11/08/23945 Wound Length (cm) 6 cm 11/08/23945 Wound Width (cm) 6.5 cm 11/08/23945 Wound Surface Area (cm^2) 39 cm^2 11/08/23945 Wound Depth (cm) 0.3 cm 11/08/23945 Wound Volume (cm^3) 11.7 cm^3 11/08/23945 Wound Healing % -9186 11/08/23945 Drainage Description Serosanguineous 11/08/23945 Odor Mild 11/08/23945 Drainage Amount Large 11/08/23945 Treatments Cleansed 11/08/23 09 Primary Dressing Alginate 11/08/23 1000 Secondary Dressing 4x4 gauze 11/08/23 1000 Secured with Kerlex;Silk tape 11/08/23 1000 Compression Double Layer tubigrip 11/08/23 1000 Dressing Status New dressing;Clean, dry & intact 10/18/23 1044 1. 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 Venous insufficiency (chronic) (peripheral) 3. Lymphedema 4. Decreased mobility Pt ed, reassurance to pt and attendant, present for entire visit Since his facility doesn't have blue or sorbex, we will use alginate. Switch from MLCD on R to double tubigrip Reviewed s/s infection Reviewed activity/compression/elevation Reviewed protein/nutrition Recheck one wk, sooner prn Pt agrees with plan. PLAN: Patient examined and evaluated. Patient understands all that has been explained and wishes to proceed with current treatment. Patient understands all risks, benefits, procedures, carine-operative management, and possible complications. All questions answered and no guarantees made or implied. Please see attached Discharge Instructions Assessments Nursing Assessment/Reassessment Score (check box all that apply) Reassessment of Co-morbidities (includes updates in patient status) 10 [x] Wound and Skin Assessment/Reassessment 5 [x] Reassessment of Adherence to Treatment Plan Simple Wound Assessment / Reassessment - one wound 5 [] Complex Wound Assessment - multiple wounds (# of: 2 ) multiply by 5 to get score 10 [x] Dermatologic / Skin Assessment (not related to wound area) 10 [x] Focused Assessment Circumferential Edema Measurements - multi extremities (# of: 0) multiply by 5 to get score 0 [] Nutritional Assessment/Counseling/Intervention 10 [] Lower Extremity Assessment (monofilament, tuning fork, pulses) 5 [] Peripheral Arterial Disease Assessment (using hand-held doppler) 10 [] Ostomy and/or Continence Assessment & Care Incontinence Assessment and Management 10 [] Ostomy Care Assessment and Management (repouching, etc) 20 [] Process Coordination of Care Simple Patient/Family Education for ongoing care 15 [x] Complex (extensive) Patient/Family Education for ongoing of care 20 [] Staff obtains Consent, Records, Test Results/Process Orders 10 [x] Staff telephones CHECK INSPECTOR, Nursing Homes/Clarify Orders 10 [x] Routine Transfer to another Facility (non-emergent condition) 10 [] Routine Hospital Admission (non-emergent condition) 10 [] New Admissions/Insurance Auth/Ordering NPWT, skin substitute, etc. 15 [] Emergency Hospital Admission (emergent condition) 20 [] Simple Discharge Coordination 10 [] Complex (extensive) Discharge Coordination 15 [] Special Needs Pediatric / Minor Patient Management 10 [] Isolation Patient Management 10 [] Hearing/Language/Visual Special Needs 15 [] Assessment of Community Assistance (transportation, discharge planning) 15 [] Additional Assistance / Altered Mentation 15 [] Support Surface Assessment (bed, cushion, seat) 15 [] Interventions Wound Cleansing/Measurement Simple Wound Cleansing - one wound 5 [] Complex Wound Cleansing - multiple wounds (# of: 2) multiply by 5 to get score 10 [x] Wound Imaging (photographs - any number of wounds 5 [x] Wound Tracing (instead of photographs) 5 [] Simple Wound Measurements - one wound 5 [x] Complex Wound Measuremnts - multiple wounds (#of: 0) multiply by 5 to get score 0 [] Wound Dressings Small Wound Dressing - one or multiple wounds (# of: 10) multiply by 10 to get score 10 [x] Medium Wound Dressing - one or multiple wounds (# of: 2 ) multiply by 15 to get score 0 Large Wound Dressing - one or multiple wounds (# of: 0) multiply by 20 to get score 0 [] Application of Medications - topical 5 [x] Application of Medication - injection 10 [] Miscellaneous External Ear Exam Specimen Collection (culture, biopsies, blood, body fluids, etc) 5 [] Specimen/Culture sent or taken to lab for analysis 5 [] Patient Transfer (multiple staff/Darrin lift) 10 [] Simple Staple/Suture Removal (25 or less) 5 [] Complex Staple/Suture Removal (26 or more) 10 [] Hypo/Hyperglycemic Management 10 [] Ankle/Brachial Index (JULES) 15 [] Vital Signs 5 [x] Total Points - Use to Determine Level of Clinic Visit 110 Points [place]: Level 1 (1-35 Points) Level 2 (40-75 Points) Level 3 (80-115 Points) Level 4 (120-155 Points) Level 5 (160 or more Points) documented in this encounter [facility] 11-08-2023 Hospital Discharge instructions Giuliana Radford RN - 11/08/2023 9:30 AM EDT Return Appointment in: 1 week - Should you experience any significant changes in your wound(s) or have any questions regarding your home care instructions please contact the wound center at [phone] If after regular business hours, please call your family doctor or local emergency room. Edema Control: Extremity Option: right lower leg Elevate legs to the level of the heart or above for 30 minutes daily and/or when sitting Left lower leg - Apply Single Layer Tubigrip - (on am/off pm) Additional Orders/Instructions: Follow diet per physicians instructions - such as increasing protein intake to promote wound healing. Please begin including a protein supplement/shake to patient's diet to help with wound healing Take antibiotic as directed Nursing Care Facility: [facility] Wound Treatment to R toes and R leg: Daily Cleanse wound with mild soap and water and pat dry. Apply Calcium Alginate Apply dry dressing to cover the wound and secure with tape. Apply double tubi-job developer On Am/off PM OK to shower if wound dressing covered Apply Barrier Cream to bilateral buttocks and sacral area daily and PRN. documented in this encounter [facility] 11-08-2023 Hospital Discharge instructions Giuliana Radford RN - 11/08/2023 9:30 AM EDT Return Appointment in: 1 week - Should you experience any significant changes in your wound(s) or have any questions regarding your home care instructions please contact the wound center at [phone] If after regular business hours, please call your family doctor or local emergency room. Edema Control: Extremity Option: right lower leg Elevate legs to the level of the heart or above for 30 minutes daily and/or when sitting Left lower leg - Apply Single Layer Tubigrip - (on am/off pm) Additional Orders/Instructions: Follow diet per physicians instructions - such as increasing protein intake to promote wound healing. Please begin including a protein supplement/shake to patient's diet to help with wound healing Take antibiotic as directed Nursing Care Facility: [facility] Wound Treatment to R toes and R leg: Daily Cleanse wound with mild soap and water and pat dry. Apply Calcium Alginate Apply dry dressing to cover the wound and secure with tape. Apply double tubi-job developer On Am/off PM OK to shower if wound dressing covered Apply Barrier Cream to bilateral buttocks and sacral area daily and PRN. documented in this encounter [facility] 11-08-2023 Miscellaneous Notes Encounter addended by: Marycarmen Corona RN on: 11/09/2023 10:22 AM Actions taken: Charge Capture section accepted documented in this encounter [facility] 11-08-2023 Note Encounter addended b y: Marycarmen Corona RN on: 11/09/2023 10:22 AM Actions taken: Charge Capture section accepted [facility] 11-08-2023 Note Encounter addended b y: Marycarmen Corona RN on: 11/09/2023 10:22 AM Actions taken: Charge Capture section accepted [facility] 11-08-2023 Note [facility] Wound Care Progress Note CHIEF COMPLAINT: Wound Care HISTORY OF PRESENT ILLNESS: The patient is a 62 y.o. male arrives for recheck wounds of R toes. Feels there is little improvement since last visit. Report that again dressings haven't been changed as per orders. REVIEW OF SYSTEMS: Review of Systems Constitutional: Negative. Negative for chills, fatigue and fever. See HPI Respiratory: Negative. Cardiovascular: Negative. Skin: Positive for wound. Negative for color change (from typical for patient) and rash. PHYSICAL EXAM: BP (!) 140/71 (BP Location: Right arm, Patient Position: Sitting, BP Cuff Size: Large adult) Pulse 91 Temp 36.8 ?C (98.3 ?F) (Temporal) Resp 20 Physical Exam Vitals reviewed. Constitutional: General: He is not in acute distress. Appearance: Normal appearance. He is not ill-appearing or toxic-appearing. HENT: Ears: Comments: Hearing to conversational voice is normal. Pulmonary: Effort: Pulmonary effort is normal. Breath sounds: No wheezing (No audible wheeze). Skin: General: Skin is warm and dry. Comments: Wounds of toes are macerated. See photos and measurements. Neurological: Mental Status: He is alert and oriented to person, place, and time. Psychiatric: Thought Content: Thought content normal. Wound/Incision 08/23/23 Lymphedema Toe - third Right;Anterior (Active) Wound Image 11/08/23945 Site Assessment Painful;Pale;[place];Red;Sloughing 11/08/23945 Carine-Wound Assessment Macerated;Moist ;Painful 11/08/23945 Wound Length (cm) 6 cm 11/08/23945 Wound Width (cm) 6.5 cm 11/08/23945 Wound Surface Area (cm^2) 39 cm^2 11/08/23945 Wound Depth (cm) 0.3 cm 11/08/23945 Wound Volume (cm^3) 11.7 cm^3 11/08/23945 Wound Healing % -9186 11/08/23 09 Drainage Description Serosanguineous 11/08/23 09 Odor Mild 11/08/23 09 Drainage Amount Large 11/08/23 0946 Treatments Cleansed 11/08/23 0946 Primary Dressing Alginate 11/08/23 1000 Secondary Dressing 4x4 gauze 11/08/23 1000 Secured with Kerlex;Silk tape 11/08/23 1000 Compression Double Layer tubigrip 11/08/23 1000 Dressing Status New dressing;Clean, dry & intact 10/18/23 1044 1. 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 Venous insufficiency (chronic) (peripheral) 3. Lymphedema 4. Decreased mobility Pt ed, reassurance to pt and attendant, present for entire visit Since his facility doesn't have blue or sorbex, we will use alginate. Switch from MLCD on R to double tubigrip Reviewed s/s infection Reviewed activity/compression/elevation Reviewed protein/nutrition Recheck one wk, sooner prn Pt agrees with plan. PLAN: Patient examined and evaluated. Patient understands all that has been explained and wishes to proceed with current treatment. Patient understands all risks, benefits, procedures, carine-operative management, and possible complications. All questions answered and no guarantees made or implied. Please see attached Discharge Instructions [facility] 11-01-2023 History of Present illness Narrative Images from the original note were not included. [facility] Wound Care Progress Note CHIEF COMPLAINT: Wound Care HISTORY OF PRESENT ILLNESS: The patient is a 62 y.o. male arrives for recheck wounds of R toes. Feels there is no improvement since last visit. Report that dressings haven't been changed as per orders. REVIEW OF SYSTEMS: Review of Systems Constitutional: Negative. Negative for chills, fatigue and fever. See HPI Respiratory: Negative. Cardiovascular: Negative. Skin: Positive for wound. Negative for color change (from typical for patient) and rash. PHYSICAL EXAM: BP 101/75 (BP Location: Right arm, Patient Position: Sitting, BP Cuff Size: Large adult) Pulse (!) 155 Temp 36.7 C (98 F) (Temporal) Resp 18 Physical Exam Vitals reviewed. Constitutional: General: He is not in acute distress. Appearance: Normal appearance. He is not ill-appearing or toxic-appearing. HENT: Ears: Comments: Hearing to conversational voice is normal. Pulmonary: Effort: Pulmonary effort is normal. Breath sounds: No wheezing (No audible wheeze). Skin: General: Skin is warm and dry. Comments: Wounds of toes are macerated. Somewhat larger area.. Periwound without erythema. No drainage. See photos and measurements. Neurological: Mental Status: He is alert and oriented to person, place, and time. Psychiatric: Thought Content: Thought content normal. Wound/Incision 08/23/23 Lymphedema Toe - third Right;Anterior (Active) Wound Image 11/01/23 0856 Site Assessment Red;[place];Sloughing 11/01/23 0856 Carine-Wound Assessment Macerated;Moist 11/01/23 0856 Wound Length (cm) 5.4 cm 11/01/23 0856 Wound Width (cm) 7.5 cm 11/01/23 0856 Wound Surface Area (cm^2) 40.5 cm^2 11/01/23 0856 Wound Depth (cm) 0.2 cm 11/01/23 0856 Wound Volume (cm^3) 8.1 cm^3 11/01/23 0856 Wound Healing % -6329 11/01/23 0856 Drainage Description Serosanguineous 11/01/23 0856 Odor Malodorous/putrid 11/01/23 0856 Drainage Amount Copious 11/01/23 0856 Treatments Cleansed 11/01/23 0856 Primary Dressing Calcium alginate 10/18/23 1044 Secondary Dressing Sorbex 10/18/23 1044 Secured with Kerlex;Paper tape 10/18/23 1044 Compression Surepress 10/18/23 1044 Dressing Status New dressing;Clean, dry & intact 10/18/23 1044 Wound/Incision 10/25/23 Venous Ulcer Leg Distal;Right;Anterior (Active) Wound Image 11/01/23 0858 Site Assessment [place] 11/01/23 0858 Carine-Wound Assessment Dry 11/01/23 0858 Wound Length (cm) 0.2 cm 11/01/23 0858 Wound Width (cm) 0.2 cm 11/01/23 0858 Wound Surface Area (cm^2) 0.04 cm^2 11/01/23 0858 Wound Depth (cm) 0.1 cm 11/01/23 0858 Wound Volume (cm^3) 0.004 cm^3 11/01/23 0858 Wound Healing % 96 11/01/23 0858 Drainage Description Serosanguineous 11/01/23 0858 Odor None 11/01/23 0858 Drainage Amount Small 11/01/23 0858 Treatments Cleansed 11/01/23 0858 1. 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 Venous insufficiency (chronic) (peripheral) 3. Lymphedema 4. Decreased mobility Pt ed, reassurance to pt and attendant, present for entire visit Dermablue/sorbex, daily dressing change to toes MLCD on R Tubigrip to L lower leg Reviewed s/s infection Reviewed activity/compression/elevation Reviewed protein/nutrition Recheck one wk, sooner prn Pt agrees with plan. PLAN: Patient examined and evaluated. Patient understands all that has been explained and wishes to proceed with current treatment. Patient understands all risks, benefits, procedures, carine-operative management, and possible complications. All questions answered and no guarantees made or implied. Please see attached Discharge Instructions documented in this encounter [facility] 11-01-2023 Hospital Discharge instructions Giuliana Radford RN - 11/01/2023 8:30 AM EDT Return Appointment in: 1 week - Should you experience any significant changes in your wound(s) or have any questions regarding your home care instructions please contact the wound center at [phone] If after regular business hours, please call your family doctor or local emergency room. Edema Control: Extremity Option: right lower leg Elevate legs to the level of the heart or above for 30 minutes daily and/or when sitting Left lower leg - Apply Single Layer Tubigrip - (on am/off pm) Additional Orders/Instructions: Follow diet per physicians instructions - such as increasing protein intake to promote wound healing. Please begin including a protein supplement/shake to patient's diet to help with wound healing Take antibiotic as directed Nursing Care Facility: [facility] Wound Treatment to R toes: Daily Cleanse wound with mild soap and water and pat dry. Apply Hydrafera blue Superabsorbent pad or sorbex Kerlix Apply dry dressing to cover the wound and secure with tape. OK to shower if wound dressing covered Wound Treatment to RLE: Weekly Unna Boot profore lite Apply Barrier Cream to bilateral buttocks and sacral area daily and PRN. documented in this encounter [facility] 11-01-2023 Miscellaneous Notes Encounter addended by: Marycarmen Corona RN on: 11/01/2023 11:27 AM Actions taken: Charge Capture section accepted documented in this encounter [facility] 11-01-2023 Note Encounter addended b y: Marycarmen Corona RN on: 11/01/2023 11:27 AM Actions taken: Charge Capture section accepted [facility] 11-01-2023 Note Encounter addended b y: Marycarmen Corona RN on: 11/01/2023 11:27 AM Actions taken: Charge Capture section accepted [facility] 11-01-2023 Note Encounter addended b y: Marycarmen Corona RN on: 11/01/2023 11:27 AM Actions taken: Charge Capture section accepted [facility] 11-01-2023 Note [facility] Wound Care Progress Note CHIEF COMPLAINT: Wound Care HISTORY OF PRESENT ILLNESS: The patient is a 62 y.o. male arrives for recheck wounds of R toes. Feels there is no improvement since last visit. Report that dressings haven't been changed as per orders. REVIEW OF SYSTEMS: Review of Systems Constitutional: Negative. Negative for chills, fatigue and fever. See HPI Respiratory: Negative. Cardiovascular: Negative. Skin: Positive for wound. Negative for color change (from typical for patient) and rash. PHYSICAL EXAM: BP 101/75 (BP Location: Right arm, Patient Position: Sitting, BP Cuff Size: Large adult) Pulse (!) 155 Temp 36.7 ?C (98 ?F) (Temporal) Resp 18 Physical Exam Vitals reviewed. Constitutional: General: He is not in acute distress. Appearance: Normal appearance. He is not ill-appearing or toxic-appearing. HENT: Ears: Comments: Hearing to conversational voice is normal. Pulmonary: Effort: Pulmonary effort is normal. Breath sounds: No wheezing (No audible wheeze). Skin: General: Skin is warm and dry. Comments: Wounds of toes are macerated. Somewhat larger area.. Periwound without erythema. No drainage. See photos and measurements. Neurological: Mental Status: He is alert and oriented to person, place, and time. Psychiatric: Thought Content: Thought content normal. Wound/Incision 08/23/23 Lymphedema Toe - third Right;Anterior (Active) Wound Image 11/01/23 0856 Site Assessment Red;[place];Sloughing 11/01/23 0856 Carine-Wound Assessment Macerated;Moist 11/01/23 08 Wound Length (cm) 5.4 cm 11/01/23 08 Wound Width (cm) 7.5 cm 11/01/23 08 Wound Surface Area (cm^2) 40.5 cm^2 11/01/23 08 Wound Depth (cm) 0.2 cm 11/01/23 08 Wound Volume (cm^3) 8.1 cm^3 11/01/23 08 Wound Healing % -6329 11/01/23 08 Drainage Description Serosanguineous 11/01/23 08 Odor Malodorous/putrid 11/01/23 08 Drainage Amount Copious 11/01/23 0856 Treatments Cleansed 11/01/23 0856 Primary Dressing Calcium alginate 10/18/23 1044 Secondary Dressing Sorbex 10/18/23 1044 Secured with Kerlex;Paper tape 10/18/23 1044 Compression Surepress 10/18/23 1044 Dressing Status New dressing;Clean, dry & intact 10/18/23 1044 Wound/Incision 10/25/23 Venous Ulcer Leg Distal;Right;Anterior (Active) Wound Image 11/01/23 08 Site Assessment [place] 11/01/23 0858 Carine-Wound Assessment Dry 11/01/23 0858 Wound Length (cm) 0.2 cm 11/01/23 08 Wound Width (cm) 0.2 cm 11/01/23 08 Wound Surface Area (cm^2) 0.04 cm^2 11/01/23 08 Wound Depth (cm) 0.1 cm 11/01/23 08 Wound Volume (cm^3) 0.004 cm^3 11/01/23 08 Wound Healing % 96 11/01/23 0858 Drainage Description Serosanguineous 11/01/23 0858 Odor None 11/01/23 08 Drainage Amount Small 11/01/23 0858 Treatments Cleansed 11/01/23857 1. 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 Venous insufficiency (chronic) (peripheral) 3. Lymphedema 4. Decreased mobility Pt ed, reassurance to pt and attendant, present for entire visit Dermablue/sorbex, daily dressing change to toes MLCD on R Tubigrip to L lower leg Reviewed s/s infection Reviewed activity/compression/elevation Reviewed protein/nutrition Recheck one wk, sooner prn Pt agrees with plan. PLAN: Patient examined and evaluated. Patient understands all that has been explained and wishes to proceed with current treatment. Patient understands all risks, benefits, procedures, carine-operative management, and possible complications. All questions answered and no guarantees made or implied. Please see attached Discharge Instructions [facility] 11-01-2023 Note Encounter addended b y: Marycarmen Corona RN on: 11/01/2023 11:27 AM Actions taken: Charge Capture section accepted [facility] 10-25-2023 History of Present illness Narrative Associated Order(s): Debridement Post-Procedure Diagnose(s): Lymphedema; Venous insufficiency (chronic) (peripheral); 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 [facility] Wound Care Progress Note CHIEF COMPLAINT: Wound Care HISTORY OF PRESENT ILLNESS: The patient is a 62 y.o. male arrives for recheck wounds of R toes. Feels there is improvement since last visit. Less pain and less redness. Denies constitutional symptoms. REVIEW OF SYSTEMS: Review of Systems Constitutional: Negative. Negative for chills, fatigue and fever. See HPI Respiratory: Negative. Cardiovascular: Negative. Skin: Positive for wound. Negative for color change (from typical for patient) and rash. PHYSICAL EXAM: BP 119/74 Pulse 63 Temp 36 C (96.8 F) Resp 18 Physical Exam Vitals reviewed. Constitutional: General: He is not in acute distress. Appearance: Normal appearance. He is not ill-appearing or toxic-appearing. HENT: Ears: Comments: Hearing to conversational voice is normal. Pulmonary: Effort: Pulmonary effort is normal. Breath sounds: No wheezing (No audible wheeze). Skin: General: Skin is warm and dry. Comments: Wounds of toes are improving. Still some maceration. Periwound without erythema. No drainage or unusual odor. See photos and measurements. Neurological: Mental Status: He is alert and oriented to person, place, and time. Psychiatric: Thought Content: Thought content normal. Wound/Incision 08/23/23 Lymphedema Toe- second Right (Active) Wound Image 10/25/23 08 Site Assessment Pale;[place];Sloughing 10/25/23 08 Carine-Wound Assessment Maceration 10/25/23 08 Wound Length (cm) 1.4 cm 10/25/23 08 Wound Width (cm) 2.3 cm 10/25/23 08 Wound Surface Area (cm^2) 3.22 cm^2 10/25/23 08 Wound Depth (cm) 0.2 cm 10/25/23 08 Wound Volume (cm^3) 0.644 cm^3 10/25/23 08 Wound Healing % -61 10/25/23 0855 Drainage Description Serosanguineous 10/25/23 08 Odor None 10/25/23 0855 Drainage Amount Moderate 10/25/23 0855 Treatments Irrigation 10/25/23 0855 Primary Dressing Calcium alginate 10/18/23 1046 Secondary Dressing Sorbex 10/18/23 1046 Secured with Kerlex;Silk tape 10/18/23 1046 Compression Surepress 10/18/23 1046 Dressing Status New dressing;Clean, dry & intact 10/18/23 1046 Wound/Incision 08/23/23 Lymphedema Toe - third Right (Active) Wound Image 10/25/23 0858 Site Assessment Pale;[place];Sloughing 10/25/23 0858 Carine-Wound Assessment Maceration 10/25/23 08 Wound Length (cm) 1 cm 10/25/23 08 Wound Width (cm) 0.9 cm 10/25/23 08 Wound Surface Area (cm^2) 0.9 cm^2 10/25/23 08 Wound Depth (cm) 0.2 cm 10/25/23 08 Wound Volume (cm^3) 0.18 cm^3 10/25/23 0858 Wound Healing % -43 10/25/23 0858 Drainage Description Serosanguineous 10/25/23 0858 Odor None 10/25/23 0858 Drainage Amount Moderate 10/25/23 0858 Treatments Irrigation 10/25/23 0858 Primary Dressing Calcium alginate 10/18/23 1044 Secondary Dressing Sorbex 10/18/23 1044 Secured with Kerlex;Paper tape 10/18/23 1044 Compression Surepress 10/18/23 1044 Dressing Status New dressing;Clean, dry & intact 10/18/23 1044 Wound/Incision 10/18/23 Lymphedema Toe - great Right (Active) Wound Image 10/25/23 0857 Site Assessment Intact;[place] 10/25/23 0857 Carine-Wound Assessment Intact 10/25/23 0857 Wound Length (cm) 0.3 cm 10/25/23 0857 Wound Width (cm) 0.6 cm 10/25/23 0857 Wound Surface Area (cm^2) 0.18 cm^2 10/25/23 0857 Wound Depth (cm) 0.1 cm 10/25/23 0857 Wound Volume (cm^3) 0.018 cm^3 10/25/23 0857 Wound Healing % 68 10/25/23 0857 Drainage Description Serosanguineous 10/25/23 0857 Odor None 10/25/23 0857 Drainage Amount Scant 10/25/23 0857 Treatments Irrigation 10/25/23 0857 Primary Dressing Calcium alginate 10/18/23 1049 Secondary Dressing Sorbex 10/18/23 1049 Secured with Kerlex;Paper tape 10/18/23 1049 Compression Surepress 10/18/23 1049 Dressing Status New dressing;Clean, dry & intact 10/18/23 1049 Wound/Incision 10/25/23 Venous Ulcer Leg Distal;Right;Anterior (Active) Wound Image 10/25/23 0902 Site Assessment Bleeding 10/25/23 0902 Carine-Wound Assessment Dry 10/25/23 0902 Wound Length (cm) 0.9 cm 10/25/23 09 Wound Width (cm) 1.2 cm 10/25/23 09 Wound Surface Area (cm^2) 1.08 cm^2 10/25/23 09 Wound Depth (cm) 0.1 cm 10/25/23 09 Wound Volume (cm^3) 0.108 cm^3 10/25/23 09 Drainage Description Serosanguineous 10/25/23901 Odor None 10/25/23901 Drainage Amount Scant 10/25/23901 Treatments Cleansed 10/25/23901 Debridement Wound/Incision 08/23/23 Lymphedema Toe- second Right Wound/Incision 08/23/23 Lymphedema Toe - third Right Wound/Incision 10/18/23 Lymphedema Toe - great Right Performed by: Julissa Taylor DO Authorized by: Julissa Taylor, DO Consent Consent obtained? verbal Consent given by: patient Risks discussed? procedural risks discussed Immediately prior to the procedure a time out was called and the performing provider verified the correct patient, procedure, equipment, cell support operator, and site/side marked as required. Debridement Details Performed by: physician Debridement type: surgical Level of debridement: subcutaneous tissue Pain control: lidocaine 2% Pain control administration type: topical Pre-debridement measurements Length (cm): 2.7 Width (cm): 3.8 Depth (cm): 0.2 Surface Area (cm^2): 10.26 Post-debridement measurements Length (cm): 2.8 Width (cm): 3.8 Depth (cm): 0.3 Percent debrided: 100% Surface Area (cm^2): 10.64 Area Debrided (cm^2): 10.64 Volume (cm^3): 3.19 Tissue and other material debrided: dermis, epidermis and subcutaneous tissue Devitalized tissue debrided: biofilm, callus and slough Instrument(s) utilized: curette Bleeding: small Hemostasis obtained with: pressure Procedural pain (0-10): insensate Post-procedural pain: insensate Response to treatment: procedure was tolerated well 1. 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 Venous insufficiency (chronic) (peripheral) 3. Lymphedema 4. Decreased mobility 5. Non-pressure chronic ulcer right lower leg, limited to breakdown skin (HCC) Pt ed, reassurance to pt and attendant, present for entire visit Dermablue/sorbex/MLCD Tubigrip to L lower leg Reviewed s/s infection Reviewed activity/compression/elevation Reviewed protein/nutrition Recheck one wk, sooner prn Pt agrees with plan. PLAN: Patient examined and evaluated. Patient understands all that has been explained and wishes to proceed with current treatment. Patient understands all risks, benefits, procedures, carine-operative management, and possible complications. All questions answered and no guarantees made or implied. Please see attached Discharge Instructions documented in this encounter [facility] 10-25-2023 Hospital Discharge instructions Giuliana Radford RN - 10/25/2023 8:30 AM EDT Return Appointment in: 1 week - Should you experience any significant changes in your wound(s) or have any questions regarding your home care instructions please contact the wound center at [phone] If after regular business hours, please call your family doctor or local emergency room. Edema Control: Extremity Option: right lower leg Elevate legs to the level of the heart or above for 30 minutes daily and/or when sitting Left lower leg - Apply Single Layer Tubigrip - (on am/off pm) Additional Orders/Instructions: Follow diet per physicians instructions - such as increasing protein intake to promote wound healing. Please begin including a protein supplement/shake to patient's diet to help with wound healing Take antibiotic as directed Nursing Care Facility: [facility] Wound Treatment: Wound: right toes and RLE Dressing Frequency: Dressing weekly Wound Cleansing: OK to shower if wound dressing covered Apply hydrafera blue Secondary Dressing: Superabsorbent pad or sorbex Secure With: Kerlex Roll gauze 4, Silk Tape 1 Compression: Unna boot profore lite Apply Barrier Cream to bilateral buttocks and sacral area daily and PRN. documented in this encounter [facility] 10-25-2023 Note [facility] Wound Care Progress Note CHIEF COMPLAINT: Wound Care HISTORY OF PRESENT ILLNESS: The patient is a 62 y.o. male arrives for recheck wounds of R toes. Feels there is improvement since last visit. Less pain and less redness. Denies constitutional symptoms. REVIEW OF SYSTEMS: Review of Systems Constitutional: Negative. Negative for chills, fatigue and fever. See HPI Respiratory: Negative. Cardiovascular: Negative. Skin: Positive for wound. Negative for color change (from typical for patient) and rash. PHYSICAL EXAM: BP 119/74 Pulse 63 Temp 36 ?C (96.8 ?F) Resp 18 Physical Exam Vitals reviewed. Constitutional: General: He is not in acute distress. Appearance: Normal appearance. He is not ill-appearing or toxic-appearing. HENT: Ears: Comments: Hearing to conversational voice is normal. Pulmonary: Effort: Pulmonary effort is normal. Breath sounds: No wheezing (No audible wheeze). Skin: General: Skin is warm and dry. Comments: Wounds of toes are improving. Still some maceration. Periwound without erythema. No drainage or unusual odor. See photos and measurements. Neurological: Mental Status: He is alert and oriented to person, place, and time. Psychiatric: Thought Content: Thought content normal. Wound/Incision 08/23/23 Lymphedema Toe- second Right (Active) Wound Image 10/25/23 0855 Site Assessment Pale;[place];Sloughing 10/25/23 0855 Carine-Wound Assessment Maceration 10/25/23 0855 Wound Length (cm) 1.4 cm 10/25/23 0855 Wound Width (cm) 2.3 cm 10/25/23 0855 Wound Surface Area (cm^2) 3.22 cm^2 10/25/23 0855 Wound Depth (cm) 0.2 cm 10/25/23 0855 Wound Volume (cm^3) 0.644 cm^3 10/25/23 0855 Wound Healing % -61 10/25/23 0855 Drainage Description Serosanguineous 10/25/23 0855 Odor None 10/25/23 0855 Drainage Amount Moderate 10/25/23 0855 Treatments Irrigation 10/25/23 0855 Primary Dressing Calcium alginate 10/18/23 1046 Secondary Dressing Sorbex 10/18/23 1046 Secured with Kerlex;Silk tape 10/18/23 1046 Compression Surepress 10/18/23 1046 Dressing Status New dressing;Clean, dry & intact 10/18/23 1046 Wound/Incision 08/23/23 Lymphedema Toe - third Right (Active) Wound Image 10/25/23 0858 Site Assessment Pale;[place];Sloughing 10/25/23 0858 Carine-Wound Assessment Maceration 10/25/23 0858 Wound Length (cm) 1 cm 10/25/23 0858 Wound Width (cm) 0.9 cm 10/25/23 0858 Wound Surface Area (cm^2) 0.9 cm^2 10/25/23 0858 Wound Depth (cm) 0.2 cm 10/25/23 0858 Wound Volume (cm^3) 0.18 cm^3 10/25/23 0858 Wound Healing % -43 10/25/23 0858 Drainage Description Serosanguineous 10/25/23 0858 Odor None 10/25/23 0858 Drainage Amount Moderate 10/25/23 0858 Treatments Irrigation 10/25/23 0858 Primary Dressing Calcium alginate 10/18/23 1044 Secondary Dressing Sorbex 10/18/23 1044 Secured with Kerlex;Paper tape 10/18/23 1044 Compression Surepress 10/18/23 1044 Dressing Status New dressing;Clean, dry & intact 10/18/23 1044 Wound/Incision 10/18/23 Lymphedema Toe - great Right (Active) Wound Image 10/25/23 0857 Site Assessment Intact;[place] 10/25/23 08 Carine-Wound Assessment Intact 10/25/23 0857 Wound Length (cm) 0.3 cm 10/25/23 0857 Wound Width (cm) 0.6 cm 10/25/23 0857 Wound Surface Area (cm^2) 0.18 cm^2 10/25/23 0857 Wound Depth (cm) 0.1 cm 10/25/23 0857 Wound Volume (cm^3) 0.018 cm^3 10/25/23 0857 Wound Healing % 68 10/25/23 0857 Drainage Description Serosanguineous 10/25/23 0857 Odor None 10/25/23 0857 Drainage Amount Scant 10/25/23 0857 Treatments Irrigation 10/25/23 0857 Primary Dressing Calcium alginate 10/18/23 1049 Secondary Dressing Sorbex 10/18/23 1049 Secured with Kerlex;Paper tape 10/18/23 1049 Compression Surepress 10/18/23 1049 Dressing Status New dressing;Clean, dry & intact 10/18/23 1049 Wound/Incision 10/25/23 Venous Ulcer Leg Distal;Right;Anterior (Active) Wound Image 10/25/23901 Site Assessment Bleeding 10/25/23901 Carine-Wound Assessment Dry 10/25/23901 Wound Length (cm) 0.9 cm 10/25/23901 Wound Width (cm) 1.2 cm 10/25/23901 Wound Surface Area (cm^2) 1.08 cm^2 10/25/23901 Wound Depth (cm) 0.1 cm 10/25/23901 Wound Volume (cm^3) 0.108 cm^3 10/25/23901 Drainage Description Serosanguineous 10/25/23901 Odor None 10/25/23901 Drainage Amount Scant 10/25/23901 Treatments Cleansed 10/25/23901 Debridement Wound/Incision 08/23/23 Lymphedema Toe- second Right Wound/Incision 08/23/23 Lymphedema Toe - third Right Wound/Incision 10/18/23 Lymphedema Toe - great Right Performed by: Julissa Taylor DO Authorized by: Julissa Taylor, DO Consent Consent obtained? verbal Consent given by: patient Risks discussed? procedural risks discussed Immediately prior to the procedure a time out was called and the performing provider verified the correct patient, procedure, equipment, cell support operator, and site/side marked as required. Debridement Details Performed by (more content not included)... [facility] 10-18-2023 History of Present illness Narrative Images from the original note were not included. [facility] Wound Care Progress Note CHIEF COMPLAINT: Wound Care HISTORY OF PRESENT ILLNESS: The patient is a 62 y.o. male arrives for recheck wounds of R toes. States wound area has been more painful, wasn't able to complete PT activities due to pain. Denies constitutional symptoms. Nursing states today's bandage change revealed maggots in dressings. REVIEW OF SYSTEMS: Review of Systems Constitutional: Negative. Negative for chills, fatigue and fever. See HPI Respiratory: Negative. Cardiovascular: Negative. Skin: Positive for wound. Negative for color change (from typical for patient) and rash. PHYSICAL EXAM: BP (!) 139/94 Pulse 69 Temp 36.2 C (97.2 F) Resp 18 Physical Exam Vitals reviewed. Constitutional: General: He is not in acute distress. Appearance: Normal appearance. He is not ill-appearing or toxic-appearing. HENT: Ears: Comments: Hearing to conversational voice is normal. Pulmonary: Effort: Pulmonary effort is normal. Breath sounds: No wheezing (No audible wheeze). Skin: General: Skin is warm and dry. Comments: Wounds of toes are larger and more tender today with some maceration. Periwound is erythematous and warm to touch. No drainage or unusual odor. No visible maggots during this portion of exam. See photos and measurements. Neurological: Mental Status: He is alert and oriented to person, place, and time. Psychiatric: Thought Content: Thought content normal. Wound/Incision 08/23/23 Venous Ulcer Toe- second Right (Active) Wound Image 10/18/23 1046 Site Assessment Pale;[place];Sloughing;Maceration 10/18/23 1046 Carine-Wound Assessment Maceration 10/18/23 1046 Wound Length (cm) 1.4 cm 10/18/23 1046 Wound Width (cm) 2.4 cm 10/18/23 1046 Wound Surface Area (cm^2) 3.36 cm^2 10/18/23 1046 Wound Depth (cm) 0.3 cm 10/18/23 1046 Wound Volume (cm^3) 1.008 cm^3 10/18/23 1046 Wound Healing % -152 10/18/23 1046 Drainage Description Serosanguineous 10/18/23 1046 Odor Mild 10/18/23 1046 Drainage Amount Large 10/18/23 1046 Treatments Cleansed 10/18/23 1046 Primary Dressing Alginate 10/11/23 1000 Secondary Dressing 4x4 gauze 10/11/23 1000 Secured with Kerlex;Silk tape 10/11/23 1000 Compression Unna boot;Multilayer compression wrap - 3 layers 10/11/23 1000 Dressing Status New dressing;Clean, dry & intact 10/04/23 1407 Wound/Incision 08/23/23 Venous Ulcer Toe - third Right (Active) Wound Image 10/18/23 1044 Site Assessment Maceration;Pale;[place];Sloughing 10/18/23 1044 Carine-Wound Assessment Macerated;[place] 10/18/23 1044 Wound Length (cm) 0.9 cm 10/18/23 1044 Wound Width (cm) 1.5 cm 10/18/23 1044 Wound Surface Area (cm^2) 1.35 cm^2 10/18/23 1044 Wound Depth (cm) 0.2 cm 10/18/23 1044 Wound Volume (cm^3) 0.27 cm^3 10/18/23 1044 Wound Healing % -114 10/18/23 1044 Drainage Description Serosanguineous 10/18/23 1044 Odor None 10/18/23 1044 Drainage Amount Large 10/18/23 1044 Treatments Cleansed 10/18/23 1044 Primary Dressing Alginate 10/11/23 1000 Secondary Dressing 4x4 gauze 10/11/23 1000 Secured with Kerlex;Silk tape 10/11/23 1000 Compression Unna boot;Multilayer compression wrap - 3 layers 10/11/23 1000 Dressing Status New dressing;Clean, dry & intact 10/04/23 1410 Wound/Incision 10/18/23 Diabetic Ulcer Toe - great Anterior;Right (Active) Wound Image 10/18/23 1049 Site Assessment Maceration;[place] 10/18/23 1049 Carine-Wound Assessment Moist 10/18/23 1049 Wound Length (cm) 0.4 cm 10/18/23 1049 Wound Width (cm) 1.4 cm 10/18/23 1049 Wound Surface Area (cm^2) 0.56 cm^2 10/18/23 1049 Wound Depth (cm) 0.1 cm 10/18/23 1049 Wound Volume (cm^3) 0.056 cm^3 10/18/23 1049 Drainage Description Serosanguineous 10/18/23 1049 Odor Mild 10/18/23 1049 Drainage Amount Small 10/18/23 1049 Treatments Cleansed 10/18/23 1049 1. 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 Venous insufficiency (chronic) (peripheral) 3. Lymphedema 4. Decreased mobility Pt ed, reassurance to pt and attendant, present for entire visit Alginate, sorbex, surepress to R lower leg Tubigrip to L lower leg Reviewed s/s infection We'll cover with empiric doxycycline for 10 days Suggest facility evaluate his living area for maggots/infestation Reviewed activity/compression/elevation Reviewed protein/nutrition Recheck one wk, sooner prn Pt agrees with plan. PLAN: Patient examined and evaluated. Patient understands all that has been explained and wishes to proceed with current treatment. Patient understands all risks, benefits, procedures, carine-operative management, and possible complications. All questions answered and no guarantees made or implied. Treatment: Orders Placed This Encounter Procedures Dressing Order: Soap & water; Calcium alginate; Every other day; Sorbex; Kerlex, Paper tape; Surepress Order Specific Question: Wound Cleansing Answer: Soap & water Order Specific Question: Primary Dressing Answer: Calcium alginate Order Specific Question: Dressing Frequency Answer: Every other day Order Specific Question: Secondary Dressing Answer: Sorbex Order Specific Question: Secured With Answer: Kerlex Order Specific Question: Secured With Answer: Paper tape Order Specific Question: Compression Answer: Surepress Please see attached Discharge Instructions documented in this encounter [facility] 10-18-2023 History of Present illness Narrative Images from the original note were not included. [facility] Wound Care Progress Note CHIEF COMPLAINT: Wound Care HISTORY OF PRESENT ILLNESS: The patient is a 62 y.o. male arrives for recheck wounds of R toes. States wound area has been more painful, wasn't able to complete PT activities due to pain. Denies constitutional symptoms. Nursing states today's bandage change revealed maggots in dressings. REVIEW OF SYSTEMS: Review of Systems Constitutional: Negative. Negative for chills, fatigue and fever. See HPI Respiratory: Negative. Cardiovascular: Negative. Skin: Positive for wound. Negative for color change (from typical for patient) and rash. PHYSICAL EXAM: BP (!) 139/94 Pulse 69 Temp 36.2 C (97.2 F) Resp 18 Physical Exam Vitals reviewed. Constitutional: General: He is not in acute distress. Appearance: Normal appearance. He is not ill-appearing or toxic-appearing. HENT: Ears: Comments: Hearing to conversational voice is normal. Pulmonary: Effort: Pulmonary effort is normal. Breath sounds: No wheezing (No audible wheeze). Skin: General: Skin is warm and dry. Comments: Wounds of toes are larger and more tender today with some maceration. Periwound is erythematous and warm to touch. No drainage or unusual odor. No visible maggots during this portion of exam. See photos and measurements. Neurological: Mental Status: He is alert and oriented to person, place, and time. Psychiatric: Thought Content: Thought content normal. Wound/Incision 08/23/23 Venous Ulcer Toe- second Right (Active) Wound Image 10/18/23 1046 Site Assessment Pale;[place];Sloughing;Maceration 10/18/23 1046 Carine-Wound Assessment Maceration 10/18/23 1046 Wound Length (cm) 1.4 cm 10/18/23 1046 Wound Width (cm) 2.4 cm 10/18/23 1046 Wound Surface Area (cm^2) 3.36 cm^2 10/18/23 1046 Wound Depth (cm) 0.3 cm 10/18/23 1046 Wound Volume (cm^3) 1.008 cm^3 10/18/23 1046 Wound Healing % -152 10/18/23 1046 Drainage Description Serosanguineous 10/18/23 1046 Odor Mild 10/18/23 1046 Drainage Amount Large 10/18/23 1046 Treatments Cleansed 10/18/23 1046 Primary Dressing Alginate 10/11/23 1000 Secondary Dressing 4x4 gauze 10/11/23 1000 Secured with Kerlex;Silk tape 10/11/23 1000 Compression Unna boot;Multilayer compression wrap - 3 layers 10/11/23 1000 Dressing Status New dressing;Clean, dry & intact 10/04/23 1407 Wound/Incision 08/23/23 Venous Ulcer Toe - third Right (Active) Wound Image 10/18/23 1044 Site Assessment Maceration;Pale;[place];Sloughing 10/18/23 1044 Carine-Wound Assessment Macerated;Pale 10/18/23 1044 Wound Length (cm) 0.9 cm 10/18/23 1044 Wound Width (cm) 1.5 cm 10/18/23 1044 Wound Surface Area (cm^2) 1.35 cm^2 10/18/23 104 Wound Depth (cm) 0.2 cm 10/18/23 1044 Wound Volume (cm^3) 0.27 cm^3 10/18/23 1044 Wound Healing % -114 10/18/23 1044 Drainage Description Serosanguineous 10/18/23 1044 Odor None 10/18/23 1044 Drainage Amount Large 10/18/23 1044 Treatments Cleansed 10/18/23 1044 Primary Dressing Alginate 10/11/23 1000 Secondary Dressing 4x4 gauze 10/11/23 1000 Secured with Kerlex;Silk tape 10/11/23 1000 Compression Unna boot;Multilayer compression wrap - 3 layers 10/11/23 1000 Dressing Status New dressing;Clean, dry & intact 10/04/23 1410 Wound/Incision 10/18/23 Diabetic Ulcer Toe - great Anterior;Right (Active) Wound Image 10/18/23 1049 Site Assessment Maceration;[place] 10/18/23 1049 Carine-Wound Assessment Moist 10/18/23 1049 Wound Length (cm) 0.4 cm 10/18/23 1049 Wound Width (cm) 1.4 cm 10/18/23 1049 Wound Surface Area (cm^2) 0.56 cm^2 10/18/23 1049 Wound Depth (cm) 0.1 cm 10/18/23 1049 Wound Volume (cm^3) 0.056 cm^3 10/18/23 1049 Drainage Description Serosanguineous 10/18/23 1049 Odor Mild 10/18/23 1049 Drainage Amount Small 10/18/23 1049 Treatments Cleansed 10/18/23 1049 1. 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 Venous insufficiency (chronic) (peripheral) 3. Lymphedema 4. Decreased mobility Pt ed, reassurance to pt and attendant, present for entire visit Alginate, sorbex, surepress to R lower leg Tubigrip to L lower leg Reviewed s/s infection We'll cover with empiric doxycycline for 10 days Suggest facility evaluate his living area for maggots/infestation Reviewed activity/compression/elevation Reviewed protein/nutrition Recheck one wk, sooner prn Pt agrees with plan. PLAN: Patient examined and evaluated. Patient understands all that has been explained and wishes to proceed with current treatment. Patient understands all risks, benefits, procedures, carine-operative management, and possible complications. All questions answered and no guarantees made or implied. Treatment: Orders Placed This Encounter Procedures Dressing Order: Soap & water; Calcium alginate; Every other day; Sorbex; Kerlex, Paper tape; Surepress Order Specific Question: Wound Cleansing Answer: Soap & water Order Specific Question: Primary Dressing Answer: Calcium alginate Order Specific Question: Dressing Frequency Answer: Every other day Order Specific Question: Secondary Dressing Answer: Sorbex Order Specific Question: Secured With Answer: Kerlex Order Specific Question: Secured With Answer: Paper tape Order Specific Question: Compression Answer: Surepress Please see attached Discharge Instructions documented in this encounter [facility] 10-18-2023 Hospital Discharge instructions Marycarmen Corona RN - 10/18/2023 10:15 AM EDT Return Appointment in: 1 week - Should you experience any significant changes in your wound(s) or have any questions regarding your home care instructions please contact the wound center at [phone] If after regular business hours, please call your family doctor or local emergency room. Edema Control: Extremity Option: right lower leg Elevate legs to the level of the heart or above for 30 minutes daily and/or when sitting Left lower leg - Apply Single Layer Tubigrip - (on am/off pm) Additional Orders/Instructions: Follow diet per physicians instructions - such as increasing protein intake to promote wound healing. Please begin including a protein supplement/shake to patient's diet to help with wound healing Take antibiotic as directed Nursing Care Facility: [facility] Wound Treatment: Wound: right toes Dressing Frequency: Dressing in place every other day Wound Cleansing: Cleanse with antibacterial soap and water, pat dry Primary Dressing: Calcium Alginate 4/4 Secondary Dressing: Superabsorbent pad or sorbex Secure With: Kerlex Roll gauze 4, Silk Tape 1 Compression: Sure press or Setopress Apply Barrier Cream to bilateral buttocks and sacral area daily and PRN. documented in this encounter [facility] 10-18-2023 Hospital Discharge instructions Marycarmen Corona RN - 10/18/2023 10:15 AM EDT Return Appointment in: 1 week - Should you experience any significant changes in your wound(s) or have any questions regarding your home care instructions please contact the wound center at [phone] If after regular business hours, please call your family doctor or local emergency room. Edema Control: Extremity Option: right lower leg Elevate legs to the level of the heart or above for 30 minutes daily and/or when sitting Left lower leg - Apply Single Layer Tubigrip - (on am/off pm) Additional Orders/Instructions: Follow diet per physicians instructions - such as increasing protein intake to promote wound healing. Please begin including a protein supplement/shake to patient's diet to help with wound healing Take antibiotic as directed Nursing Care Facility: [facility] Wound Treatment: Wound: right toes Dressing Frequency: Dressing in place every other day Wound Cleansing: Cleanse with antibacterial soap and water, pat dry Primary Dressing: Calcium Alginate 4/4 Secondary Dressing: Superabsorbent pad or sorbex Secure With: Kerlex Roll gauze 4, Silk Tape 1 Compression: Sure press or Setopress Apply Barrier Cream to bilateral buttocks and sacral area daily and PRN. documented in this encounter [facility] 10-18-2023 Miscellaneous Notes Encounter addended by: Marycarmen Corona RN on: 10/20/2023 11:57 AM Actions taken: LDA properties accepted documented in this encounter [facility] 10-18-2023 Note Encounter addended b y: Marycarmen Corona RN on: 10/20/2023 11:57 AM Actions taken: LDA properties accepted [facility] 10-18-2023 Note [facility] Wound Care Progress Note CHIEF COMPLAINT: Wound Care HISTORY OF PRESENT ILLNESS: The patient is a 62 y.o. male arrives for recheck wounds of R toes. States wound area has been more painful, wasn't able to complete PT activities due to pain. Denies constitutional symptoms. Nursing states today's bandage change revealed maggots in dressings. REVIEW OF SYSTEMS: Review of Systems Constitutional: Negative. Negative for chills, fatigue and fever. See HPI Respiratory: Negative. Cardiovascular: Negative. Skin: Positive for wound. Negative for color change (from typical for patient) and rash. PHYSICAL EXAM: BP (!) 139/94 Pulse 69 Temp 36.2 ?C (97.2 ?F) Resp 18 Physical Exam Vitals reviewed. Constitutional: General: He is not in acute distress. Appearance: Normal appearance. He is not ill-appearing or toxic-appearing. HENT: Ears: Comments: Hearing to conversational voice is normal. Pulmonary: Effort: Pulmonary effort is normal. Breath sounds: No wheezing (No audible wheeze). Skin: General: Skin is warm and dry. Comments: Wounds of toes are larger and more tender today with some maceration. Periwound is erythematous and warm to touch. No drainage or unusual odor. No visible maggots during this portion of exam. See photos and measurements. Neurological: Mental Status: He is alert and oriented to person, place, and time. Psychiatric: Thought Content: Thought content normal. Wound/Incision 08/23/23 Venous Ulcer Toe- second Right (Active) Wound Image 10/18/23 1046 Site Assessment Pale;[place];Sloughing;Maceration 10/18/23 1046 Carine-Wound Assessment Maceration 10/18/23 1046 Wound Length (cm) 1.4 cm 10/18/23 1046 Wound Width (cm) 2.4 cm 10/18/23 1046 Wound Surface Area (cm^2) 3.36 cm^2 10/18/23 1046 Wound Depth (cm) 0.3 cm 10/18/23 1046 Wound Volume (cm^3) 1.008 cm^3 10/18/23 1046 Wound Healing % -152 10/18/23 1046 Drainage Description Serosanguineous 10/18/23 1046 Odor Mild 10/18/23 1046 Drainage Amount Large 10/18/23 1046 Treatments Cleansed 10/18/23 1046 Primary Dressing Alginate 10/11/23 1000 Secondary Dressing 4x4 gauze 10/11/23 1000 Secured with Kerlex;Silk tape 10/11/23 1000 Compression Unna boot;Multilayer compression wrap - 3 layers 10/11/23 1000 Dressing Status New dressing;Clean, dry & intact 10/04/23 1407 Wound/Incision 08/23/23 Venous Ulcer Toe - third Right (Active) Wound Image 10/18/23 1044 Site Assessment Maceration;Pale;[place];Sloughing 10/18/23 1044 Carine-Wound Assessment Macerated;Pale 10/18/23 1044 Wound Length (cm) 0.9 cm 10/18/23 1044 Wound Width (cm) 1.5 cm 10/18/23 1044 Wound Surface Area (cm^2) 1.35 cm^2 10/18/23 1044 Wound Depth (cm) 0.2 cm 10/18/23 1044 Wound Volume (cm^3) 0.27 cm^3 10/18/23 1044 Wound Healing % -114 10/18/23 1044 Drainage Description Serosanguineous 10/18/23 1044 Odor None 10/18/23 1044 Drainage Amount Large 10/18/23 1044 Treatments Cleansed 10/18/23 1044 Primary Dressing Alginate 10/11/23 1000 Secondary Dressing 4x4 gauze 10/11/23 1000 Secured with Kerlex;Silk tape 10/11/23 1000 Compression Unna boot;Multilayer compression wrap - 3 layers 10/11/23 1000 Dressing Status New dressing;Clean, dry & intact 10/04/23 1410 Wound/Incision 10/18/23 Diabetic Ulcer Toe - great Anterior;Right (Active) Wound Image 10/18/23 1049 Site Assessment Maceration;[place] 10/18/23 1049 Carine-Wound Assessment Moist 10/18/23 1049 Wound Length (cm) 0.4 cm 10/18/23 1049 Wound Width (cm) 1.4 cm 10/18/23 1049 Wound Surface Area (cm^2) 0.56 cm^2 10/18/23 1049 Wound Depth (cm) 0.1 cm 10/18/23 1049 Wound Volume (cm^3) 0.056 cm^3 10/18/23 1049 Drainage Description Serosanguineous 10/18/23 1049 Odor Mild 10/18/23 1049 Drainage Amount Small 10/18/23 1049 Treatments Cleansed 10/18/23 1049 1. 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 Venous insufficiency (chronic) (peripheral) 3. Lymphedema 4. Decreased mobility Pt ed, reassurance to pt and attendant, present for entire visit Alginate, sorbex, surepress to R lower leg Tubigrip to L lower leg Reviewed s/s infection We'll cover with empiric doxycycline for 10 days Suggest facility evaluate his living area for maggots/infestation Reviewed activity/compression/elevation Reviewed protein/nutrition Recheck one wk, sooner prn Pt agrees with plan. PLAN: Patient examined and evaluated. Patient understands all that has been explained and wishes to proceed with current treatment. Patient understands all risks, benefits, procedures, carine-operative management, and possible complications. All questions answered and no guarantees made or implied. Treatment: Orders Placed This Encounter Procedures Dressing Order: Soap & water; Calcium alginate; Every other day; Sorbex; Kerlex, Paper tape; Surepress Order Specific Question: Wound Cleansing Answer: Soap & water Order Specifi (more content not included)... [facility] 10-18-2023 Note Encounter addended b y: Marycarmen Corona RN on: 10/20/2023 11:57 AM Actions taken: LDA properties accepted [facility] 10-11-2023 History of Present illness Narrative Associated Order(s): Debridement; Debridement Post-Procedure Diagnose(s): Lymphedema; Venous insufficiency (chronic) (peripheral); 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 [facility] Wound Care Progress Note CHIEF COMPLAINT: Wound Care HISTORY OF PRESENT ILLNESS: The patient is a 62 y.o. male arrives for recheck wounds of R toes. Feels wounds are continuing to improve. REVIEW OF SYSTEMS: Review of Systems Constitutional: Negative. Negative for chills, fatigue and fever. See HPI Respiratory: Negative. Cardiovascular: Negative. Skin: Positive for wound. Negative for color change (from typical for patient) and rash. PHYSICAL EXAM: BP 122/79 Pulse 79 Temp 36.4 C (97.5 F) Resp 18 Physical Exam Vitals reviewed. Constitutional: General: He is not in acute distress. Appearance: Normal appearance. He is not ill-appearing or toxic-appearing. HENT: Ears: Comments: Hearing to conversational voice is normal. Pulmonary: Effort: Pulmonary effort is normal. Breath sounds: No wheezing (No audible wheeze). Skin: General: Skin is warm and dry. Comments: Wounds of toes continue to improve. More slough. No maceration. Good margins . See photos and measurements. Neurological: Mental Status: He is alert and oriented to person, place, and time. Psychiatric: Thought Content: Thought content normal. Wound/Incision 08/23/23 Venous Ulcer Toe- second Right (Active) Wound Image 10/04/23 1407 Site Assessment Granulation;Painful;Pale;[place];Slou ghing 10/11/23 09 Carine-Wound Assessment Maceration 10/11/23 0909 Wound Length (cm) 1.5 cm 10/11/23 0909 Wound Width (cm) 1.7 cm 10/11/23 0909 Wound Surface Area (cm^2) 2.55 cm^2 10/11/23 0909 Wound Depth (cm) 0.1 cm 10/11/23 0909 Wound Volume (cm^3) 0.255 cm^3 10/11/23 0909 Wound Healing % 36 10/11/23 0909 Drainage Description Serosanguineous;[place] 10/11/23 09 Odor None 10/11/23 09 Drainage Amount Moderate 10/11/23 0909 Treatments Cleansed 10/11/23 0909 Primary Dressing Alginate 10/11/23 1000 Secondary Dressing 4x4 gauze 10/11/23 1000 Secured with Kerlex;Silk tape 10/11/23 1000 Compression Unna boot;Multilayer compression wrap - 3 layers 10/11/23 1000 Dressing Status New dressing;Clean, dry & intact 10/04/23 1407 Wound/Incision 08/23/23 Venous Ulcer Toe - third Right (Active) Wound Image 10/11/23 0913 Site Assessment Dark edges;Painful;[place];Sloughing 10/11/23 0913 Carine-Wound Assessment Moist ;Dark edges 10/11/23 09 Wound Length (cm) 0.6 cm 10/11/23912 Wound Width (cm) 0.5 cm 10/11/23912 Wound Surface Area (cm^2) 0.3 cm^2 10/11/23912 Wound Depth (cm) 0.1 cm 10/11/23912 Wound Volume (cm^3) 0.03 cm^3 10/11/23912 Wound Healing % 76 10/11/23912 Drainage Description Serosanguineous;[place] 10/11/23912 Odor None 10/11/23912 Drainage Amount Moderate 10/11/23912 Treatments Cleansed 10/11/23 09 Primary Dressing Alginate 10/11/23 1000 Secondary Dressing 4x4 gauze 10/11/23 1000 Secured with Kerlex;Silk tape 10/11/23 1000 Compression Unna boot;Multilayer compression wrap - 3 layers 10/11/23 1000 Dressing Status New dressing;Clean, dry & intact 10/04/23 1410 Debridement Wound/Incision 08/23/23 Venous Ulcer Toe- second Right Performed by: Julissa Taylor DO Authorized by: Julissa Taylor, DO Consent Consent obtained? verbal Consent given by: patient Risks discussed? procedural risks discussed Immediately prior to the procedure a time out was called and the performing provider verified the correct patient, procedure, equipment, cell support operator, and site/side marked as required. Debridement Details Performed by: physician Debridement type: surgical Level of debridement: subcutaneous tissue Pain control: lidocaine 2% Pain control administration type: topical Pre-debridement measurements Length (cm): 1.5 Width (cm): 1.7 Depth (cm): 0.1 Surface Area (cm^2): 2.55 Post-debridement measurements Length (cm): 1.6 Width (cm): 1.7 Depth (cm): 0.2 Percent debrided: 100% Surface Area (cm^2): 2.72 Area Debrided (cm^2): 2.72 Volume (cm^3): 0.54 Tissue and other material debrided: dermis, epidermis and subcutaneous tissue Devitalized tissue debrided: biofilm and slough Instrument(s) utilized: curette Bleeding: small Hemostasis obtained with: pressure Procedural pain (0-10): 1 Post-procedural pain: 0 Response to treatment: procedure was tolerated well Debridement Wound/Incision 08/23/23 Venous Ulcer Toe - third Right Performed by: Julissa Taylor DO Authorized by: Julissa Taylor, DO Consent Consent obtained? verbal Consent given by: patient Risks discussed? procedural risks discussed Immediately prior to the procedure a time out was called and the performing provider verified the correct patient, procedure, equipment, cell support operator, and site/side marked as required. Debridement Details Performed by: physician Debridement type: surgical Level of debridement: subcutaneous tissue Pain control: lidocaine 2% Pain control administration type: topical Pre-debridement measurements Length (cm): 0.6 Width (cm): 0.5 Depth (cm): 0.1 Surface Area (cm^2): 0.3 Post-debridement measurements Length (cm): 0.6 Width (cm): 0.6 Depth (cm): 0.2 Percent debrided: 100% Surface Area (cm^2): 0.36 Area Debrided (cm^2): 0.36 Volume (cm^3): 0.07 Tissue and other material debrided: dermis, epidermis and subcutaneous tissue Devitalized tissue debrided: biofilm and slough Instrument(s) utilized: curette Bleeding: small Hemostasis obtained with: pressure Procedural pain (0-10): 1 Post-procedural pain: 0 Response to treatment: procedure was tolerated well 1. 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 Venous insufficiency (chronic) (peripheral) 3. Lymphedema 4. Decreased mobility Pt ed, reassurance to pt and attendant, present for entire visit Hold collagen, just alginate/hydralock/unna Profore lite to R lower leg Tubigrip to L lower leg Reviewed s/s infection Reviewed activity/compression/elevation Reviewed protein/nutrition Recheck one wk, sooner prn Pt agrees with plan. PLAN: Patient examined and evaluated. Patient understands all that has been explained and wishes to proceed with current treatment. Patient understands all risks, benefits, procedures, carine-operative management, and possible complications. All questions answered and no guarantees made or implied. Treatment: Orders Placed This Encounter Procedures Dressing Order: Calcium alginate; Weekly; Kerlex, Silk tape; Multilayer compression wrap - 3 layers, Unna boot Cover toes Order Specific Question: Primary Dressing Answer: Calcium alginate Order Specific Question: Dressing Frequency Answer: Weekly Order Specific Question: Secured With Answer: Kerlex Order Specific Question: Secured With Answer: Silk tape Order Specific Question: Compression Answer: Multilayer compression wrap - 3 layers Order Specific Question: Compression Answer: Unna boot Please see attached Discharge Instructions documented in this encounter [facility] 10-11-2023 Hospital Discharge instructions Debbie Mckeon RN - 10/11/2023 8:45 AM EDT Return Appointment in: 1 week - Should you experience any significant changes in your wound(s) or have any questions regarding your home care instructions please contact the wound center at [phone] If after regular business hours, please call your family doctor or local emergency room. Edema Control: Extremity Option: right lower leg Elevate legs to the level of the heart or above for 30 minutes daily and/or when sitting Multilayer Compression Therapy- 3 layers: Do not get legs with compression wrap wet. If wraps seem too tight, elevate legs above level of heart for one hour. If no relief, call the wound center. Unna Boot: Do not remove Unna Boot. Keep dry. If pain or swelling or discoloration of toes noted, elevate legs above level of heart for 1 hour. If no relief, call the center. If unable to reach center, remove boot and keep leg elevated until contact with center can be made. Left lower leg - Apply Single Layer Tubigrip - (on am/off pm) Additional Orders/Instructions: Follow diet per physicians instructions - such as increasing protein intake to promote wound healing. Please begin including a protein supplement/shake to patient's diet to help with wound healing Nursing Care Facility: [facility] Wound Treatment: Wound: right toes Dressing Frequency: Keep dressing in place all week Wound Cleansing: May shower with protection - Protect wound and dressing with water repellant cover/cast cover (e.g., large plastic bag) which can be obtained at [facility] and may take shower. Hold Collagen AG for now Secondary Dressing: Calcium Alginate 4x4 Secure With: Kerlex Roll gauze 4, Silk Tape 1 Compression: Unna boot & multilayer compression wrap - 3 layers (cover toes) Apply Barrier Cream to bilateral buttocks and sacral area daily and PRN. [facility] Wound Care Progress Note CHIEF COMPLAINT: Wound Care HISTORY OF PRESENT ILLNESS: The patient is a 62 y.o. male arrives for recheck wounds of R toes. Feels wounds are continuing to improve. REVIEW OF SYSTEMS: Review of Systems Constitutional: Negative. Negative for chills, fatigue and fever. See HPI Respiratory: Negative. Cardiovascular: Negative. Skin: Positive for wound. Negative for color change (from typical for patient) and rash. PHYSICAL EXAM: BP 122/79 Pulse 79 Temp 36.4 ?C (97.5 ?F) Resp 18 Physical Exam Vitals reviewed. Constitutional: General: He is not in acute distress. Appearance: Normal appearance. He is not ill-appearing or toxic-appearing. HENT: Ears: Comments: Hearing to conversational voice is normal. Pulmonary: Effort: Pulmonary effort is normal. Breath sounds: No wheezing (No audible wheeze). Skin: General: Skin is warm and dry. Comments: Wounds of toes continue to improve. More slough. No maceration. Good margins . See photos and measurements. Neurological: Mental Status: He is alert and oriented to person, place, and time. Psychiatric: Thought Content: Thought content normal. Wound/Incision 08/23/23 Venous Ulcer Toe- second Right (Active) Wound Image 10/04/23 1407 Site Assessment Granulation;Painful;Pale;[place];Slou ghing 10/11/23 0909 Carine-Wound Assessment Maceration 10/11/23 0909 Wound Length (cm) 1.5 cm 10/11/23 0909 Wound Width (cm) 1.7 cm 10/11/23 0909 Wound Surface Area (cm^2) 2.55 cm^2 10/11/23 0909 Wound Depth (cm) 0.1 cm 10/11/23 0909 Wound Volume (cm^3) 0.255 cm^3 10/11/23 09 Wound Healing % 36 10/11/23 0909 Drainage Description Serosanguineous;[place] 10/11/23 0909 Odor None 10/11/23 0909 Drainage Amount Moderate 10/11/23 0909 Treatments Cleansed 10/11/23 0909 Primary Dressing Alginate 10/11/23 1000 Secondary Dressing 4x4 gauze 10/11/23 1000 Secured with Kerlex;Silk tape 10/11/23 1000 Compression Unna boot;Multilayer compression wrap - 3 layers 10/11/23 1000 Dressing Status New dressing;Clean, dry & intact 10/04/23 1407 Wound/Incision 08/23/23 Venous Ulcer Toe - third Right (Active) Wound Image 10/11/23912 Site Assessment Dark edges;Painful;[place];Sloughing 10/11/23912 Carine-Wound Assessment Moist ;Dark edges 10/11/23912 Wound Length (cm) 0.6 cm 10/11/23912 Wound Width (cm) 0.5 cm 10/11/23912 Wound Surface Area (cm^2) 0.3 cm^2 10/11/23912 Wound Depth (cm) 0.1 cm 10/11/23912 Wound Volume (cm^3) 0.03 cm^3 10/11/2313 Wound Healing % 76 10/11/23 0913 Drainage Description Serosanguineous;[place] 10/11/23 0913 Odor None 10/11/23 0913 Drainage Amount Moderate 10/11/23 0913 Treatments Cleansed 10/11/23 0913 Primary Dressing Alginate 10/11/23 1000 Secondary Dressing 4x4 gauze 10/11/23 1000 Secured with Kerlex;Silk tape 10/11/23 1000 Compression Unna boot;Multilayer compression wrap - 3 layers 10/11/23 1000 Dressing Status New dressing;Clean, dry & intact 10/04/23 1410 Debridement Wound/Incision 08/23/23 Venous Ulcer Toe- second Right Performed by: Julissa Taylor DO Authorized by: Julissa Taylor, DO Consent Consent obtained? verbal Consent given by: patient Risks discussed? procedural risks discussed Immediately prior to the procedure a time out was called and the performing provider verified the correct patient, procedure, equipment, cell support operator, and site/side marked as required. Debridement Details Performed by: physician Debridement type: surgical Level of debridement: subcutaneous tissue Pain control: lidocaine 2% Pain control administration type: topical Pre-debridement measurements Length (cm): 1.5 Width (cm): 1.7 Depth (cm): 0.1 Surface Area (cm^2): 2.55 Post-debridement measurements Length (cm): 1.6 Width (cm): 1.7 Depth (cm): 0.2 Percent debrided: 100% Surface Area (cm^2): 2.72 Area Debrided (cm^2): 2.72 Volume (cm^3): 0.54 Tissue and other material debrided: dermis, epidermis and subcutaneous tissue Devitalized tissue debrided: biofilm and slough Instrument(s) utilized: curette Bleeding: small Hemostasis obtained with: pressure Procedural pain (0-10): 1 Post-procedural pain: 0 Response to treatment: procedure was tolerated well Debridement Wound/Incision 08/23/23 Venous Ulcer Toe - third Right Performed by: Julissa Taylor DO Authorized by: Julissa Taylor, DO Consent Consent obtained? verbal Consent given by: patient Risks discussed? procedural risks discussed Immediately prior to the procedure a time out was called and the performing provider verified the correct patient, procedure, equipment, cell support operator, and site/side marked as required. Debridement Details Performed by: physician Debridement type: surgical Level of debridement: subcutaneous tissue Pain control: lidocaine 2% Pain control administration type: topical Pre-debridement measurements Length (cm): 0. (more content not included)... [facility] 10-04-2023 History of Present illness Narrative Associated Order(s): Debridement; Debridement Post-Procedure Diagnose(s): Lymphedema; Venous insufficiency (chronic) (peripheral); 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 [facility] Wound Care Progress Note CHIEF COMPLAINT: Wound Care HISTORY OF PRESENT ILLNESS: The patient is a 62 y.o. male arrives for recheck wounds of R toes. Feels wounds are continuing to improve. REVIEW OF SYSTEMS: Review of Systems Constitutional: Negative. Negative for chills, fatigue and fever. See HPI Respiratory: Negative. Cardiovascular: Negative. Skin: Positive for wound. Negative for color change (from typical for patient) and rash. PHYSICAL EXAM: BP 110/70 Pulse 79 Temp 36.5 C (97.7 F) Ht 5' 10 (1.778 m) Wt 253 lb (115 kg) BMI 36.30 kg/m Physical Exam Vitals reviewed. Constitutional: General: He is not in acute distress. Appearance: Normal appearance. He is not ill-appearing or toxic-appearing. HENT: Ears: Comments: Hearing to conversational voice is normal. Pulmonary: Effort: Pulmonary effort is normal. Breath sounds: No wheezing (No audible wheeze). Skin: General: Skin is warm and dry. Comments: Wounds of toes continue to improve. Little slough. Good margins . See photos and measurements. Neurological: Mental Status: He is alert and oriented to person, place, and time. Psychiatric: Thought Content: Thought content normal. Wound/Incision 08/23/23 Venous Ulcer Toe- second Right (Active) Wound Image 10/04/23 140 Site Assessment Painful;Pale;[place];Sloughing 10/04/23 140 Carine-Wound Assessment Macerated 10/04/23 1407 Wound Length (cm) 1.5 cm 10/04/23 1407 Wound Width (cm) 1.5 cm 10/04/23 1407 Wound Surface Area (cm^2) 2.25 cm^2 10/04/23 1407 Wound Depth (cm) 0.2 cm 10/04/23 1407 Wound Volume (cm^3) 0.45 cm^3 10/04/23 1407 Wound Healing % -13 10/04/23 140 Drainage Description Serosanguineous;[place] 10/04/23 1407 Odor None 10/04/23 1407 Drainage Amount Moderate 10/04/23 1407 Treatments Cleansed 10/04/23 1407 Primary Dressing Collagen Ag;Calcium alginate 10/04/23 140 Secondary Dressing 4x4 gauze 10/04/23 1407 Secured with Kerlex;Paper tape 10/04/23 1407 Compression Unna boot;Multilayer compression wrap - 3 layers 10/04/23 140 Dressing Status New dressing;Clean, dry & intact 10/04/23 140 Wound/Incision 08/23/23 Venous Ulcer Toe - third Right (Active) Wound Image 10/04/23 1410 Site Assessment [place];Pale 10/04/23 1410 Carine-Wound Assessment Macerated 10/04/23 1410 Wound Length (cm) 0.5 cm 10/04/23 1410 Wound Width (cm) 0.3 cm 10/04/23 1410 Wound Surface Area (cm^2) 0.15 cm^2 10/04/23 1410 Wound Depth (cm) 0.2 cm 10/04/23 141 Wound Volume (cm^3) 0.03 cm^3 10/04/23 141 Wound Healing % 76 10/04/23 141 Drainage Description Serosanguineous;[place] 10/04/23 1410 Odor None 10/04/23 141 Drainage Amount Moderate 10/04/23 141 Treatments Cleansed 10/04/23 141 Primary Dressing Calcium alginate;Collagen Ag 10/04/23 141 Secondary Dressing 4x4 gauze 10/04/231409 Secured with Kerlex;Paper tape 10/04/231409 Compression Unna boot;Multilayer compression wrap - 3 layers 10/04/231409 Dressing Status New dressing;Clean, dry & intact 10/04/231409 Debridement Wound/Incision 08/23/23 Venous Ulcer Toe- second Right Performed by: Julissa Taylor DO Authorized by: Julissa Taylor, DO Consent Consent obtained? verbal Consent given by: patient Risks discussed? procedural risks discussed Immediately prior to the procedure a time out was called and the performing provider verified the correct patient, procedure, equipment, cell support operator, and site/side marked as required. Debridement Details Performed by: physician Debridement type: surgical Level of debridement: subcutaneous tissue Pain control: lidocaine 2% Pain control administration type: topical Pre-debridement measurements Length (cm): 1.5 Width (cm): 1.5 Depth (cm): 0.2 Surface Area (cm^2): 2.25 Post-debridement measurements Length (cm): 1.5 Width (cm): 1.6 Depth (cm): 0.2 Percent debrided: 100% Surface Area (cm^2): 2.4 Area Debrided (cm^2): 2.4 Volume (cm^3): 0.48 Tissue and other material debrided: dermis, epidermis and subcutaneous tissue Devitalized tissue debrided: biofilm and slough Instrument(s) utilized: curette Bleeding: small Hemostasis obtained with: pressure Procedural pain (0-10): 0 Post-procedural pain: 0 Response to treatment: procedure was tolerated well Debridement Wound/Incision 08/23/23 Venous Ulcer Toe - third Right Performed by: Julissa Taylor DO Authorized by: Julissa Taylor, DO Consent Consent obtained? verbal Consent given by: patient Risks discussed? procedural risks discussed Immediately prior to the procedure a time out was called and the performing provider verified the correct patient, procedure, equipment, cell support operator, and site/side marked as required. Debridement Details Performed by: physician Debridement type: surgical Level of debridement: subcutaneous tissue Pain control: lidocaine 2% Pain control administration type: topical Pre-debridement measurements Length (cm): 0.5 Width (cm): 0.3 Depth (cm): 0.2 Surface Area (cm^2): 0.15 Post-debridement measurements Length (cm): 0.5 Width (cm): 0.6 Depth (cm): 0.2 Percent debrided: 100% Surface Area (cm^2): 0.3 Area Debrided (cm^2): 0.3 Volume (cm^3): 0.06 Tissue and other material debrided: dermis, epidermis and subcutaneous tissue Devitalized tissue debrided: biofilm and slough Instrument(s) utilized: curette Bleeding: small Hemostasis obtained with: pressure Procedural pain (0-10): 0 Post-procedural pain: 0 Response to treatment: procedure was tolerated well 1. 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 Venous insufficiency (chronic) (peripheral) 3. Lymphedema 4. Decreased mobility Pt ed, reassurance to pt and attendant, present for entire visit Collagen/alginate/hydralock/unna Profore lite to R lower leg Tubigrip to L lower leg Reviewed s/s infection Reviewed activity/compression/elevation Reviewed protein/nutrition Recheck one wk, sooner prn Pt agrees with plan. PLAN: Patient examined and evaluated. Patient understands all that has been explained and wishes to proceed with current treatment. Patient understands all risks, benefits, procedures, carine-operative management, and possible complications. All questions answered and no guarantees made or implied. Treatment: Orders Placed This Encounter Procedures Wound Care OP Follow-up Follow up 1 week Dressing Order: Collagen Ag, Calcium alginate; Weekly; 4x4 gauze; Kerlex; Unna boot, Multilayer compression wrap - 3 layers Order Specific Question: Primary Dressing Answer: Collagen Ag Order Specific Question: Primary Dressing Answer: Calcium alginate Order Specific Question: Dressing Frequency Answer: Weekly Order Specific Question: Secondary Dressing Answer: 4x4 gauze Order Specific Question: Secured With Answer: Kerlex Order Specific Question: Compression Answer: Unna boot Order Specific Question: Compression Answer: Multilayer compression wrap - 3 layers Please see attached Discharge Instructions documented in this encounter [facility] 10-04-2023 Hospital Discharge instructions Lucinda Lima RN - 10/04/2023 1:45 PM EDT Return Appointment in: 1 week - Should you experience any significant changes in your wound(s) or have any questions regarding your home care instructions please contact the wound center at [phone] If after regular business hours, please call your family doctor or local emergency room. Edema Control: Extremity Option: right lower leg Elevate legs to the level of the heart or above for 30 minutes daily and/or when sitting Multilayer Compression Therapy- 3 layers: Do not get legs with compression wrap wet. If wraps seem too tight, elevate legs above level of heart for one hour. If no relief, call the wound center. Unna Boot: Do not remove Unna Boot. Keep dry. If pain or swelling or discoloration of toes noted, elevate legs above level of heart for 1 hour. If no relief, call the center. If unable to reach center, remove boot and keep leg elevated until contact with center can be made. Left lower leg - Apply Single Layer Tubigrip - (on am/off pm) Additional Orders/Instructions: Follow diet per physicians instructions - such as increasing protein intake to promote wound healing. Please begin including a protein supplement/shake to patient's diet to help with wound healing Nursing Care Facility: [facility] Wound Treatment: Wound: right toes Dressing Frequency: Keep dressing in place all week Wound Cleansing: May shower with protection - Protect wound and dressing with water repellant cover/cast cover (e.g., large plastic bag) which can be obtained at [facility] and may take shower. Primary Dressing: Collagen Ag 2x2 Secondary Dressing: Calcium Alginate 4x4 Secure With: Kerlex Roll gauze 4, Silk Tape 1 Compression: Unna boot & multilayer compression wrap - 3 layers (cover toes) Apply Barrier Cream to bilateral buttocks and sacral area daily and PRN. documented in this encounter [facility] 10-04-2023 Note [facility] Wound Care Progress Note CHIEF COMPLAINT: Wound Care HISTORY OF PRESENT ILLNESS: The patient is a 62 y.o. male arrives for recheck wounds of R toes. Feels wounds are continuing to improve. REVIEW OF SYSTEMS: Review of Systems Constitutional: Negative. Negative for chills, fatigue and fever. See HPI Respiratory: Negative. Cardiovascular: Negative. Skin: Positive for wound. Negative for color change (from typical for patient) and rash. PHYSICAL EXAM: BP 110/70 Pulse 79 Temp 36.5 ?C (97.7 ?F) Ht 5' 10 (1.778 m) Wt 253 lb (115 kg) BMI 36.30 kg/m? Physical Exam Vitals reviewed. Constitutional: General: He is not in acute distress. Appearance: Normal appearance. He is not ill-appearing or toxic-appearing. HENT: Ears: Comments: Hearing to conversational voice is normal. Pulmonary: Effort: Pulmonary effort is normal. Breath sounds: No wheezing (No audible wheeze). Skin: General: Skin is warm and dry. Comments: Wounds of toes continue to improve. Little slough. Good margins . See photos and measurements. Neurological: Mental Status: He is alert and oriented to person, place, and time. Psychiatric: Thought Content: Thought content normal. Wound/Incision 08/23/23 Venous Ulcer Toe- second Right (Active) Wound Image 10/04/23 140 Site Assessment Painful;Pale;[place];Sloughing 10/04/23 140 Carine-Wound Assessment Macerated 10/04/23 1407 Wound Length (cm) 1.5 cm 10/04/23 140 Wound Width (cm) 1.5 cm 10/04/231406 Wound Surface Area (cm^2) 2.25 cm^2 10/04/23 1407 Wound Depth (cm) 0.2 cm 10/04/23 1407 Wound Volume (cm^3) 0.45 cm^3 10/04/23 1407 Wound Healing % -13 10/04/23 1407 Drainage Description Serosanguineous;[place] 10/04/23 1407 Odor None 10/04/23 1407 Drainage Amount Moderate 10/04/23 1407 Treatments Cleansed 10/04/23 1407 Primary Dressing Collagen Ag;Calcium alginate 10/04/23 1407 Secondary Dressing 4x4 gauze 10/04/23 1407 Secured with Kerlex;Paper tape 10/04/23 1407 Compression Unna boot;Multilayer compression wrap - 3 layers 10/04/23 1407 Dressing Status New dressing;Clean, dry & intact 10/04/23 1407 Wound/Incision 08/23/23 Venous Ulcer Toe - third Right (Active) Wound Image 10/04/23 1410 Site Assessment [place];Pale 10/04/23 1410 Carine-Wound Assessment Macerated 10/04/23 1410 Wound Length (cm) 0.5 cm 10/04/23 1410 Wound Width (cm) 0.3 cm 10/04/23 1410 Wound Surface Area (cm^2) 0.15 cm^2 10/04/23 1410 Wound Depth (cm) 0.2 cm 10/04/23 1410 Wound Volume (cm^3) 0.03 cm^3 10/04/23 1410 Wound Healing % 76 10/04/23 1410 Drainage Description Serosanguineous;[place] 10/04/23 1410 Odor None 10/04/23 1410 Drainage Amount Moderate 10/04/23 1410 Treatments Cleansed 10/04/23 1410 Primary Dressing Calcium alginate;Collagen Ag 10/04/23 1410 Secondary Dressing 4x4 gauze 10/04/23 1410 Secured with Kerlex;Paper tape 10/04/23 1410 Compression Unna boot;Multilayer compression wrap - 3 layers 10/04/23 141 Dressing Status New dressing;Clean, dry & intact 10/04/23 1410 Debridement Wound/Incision 08/23/23 Venous Ulcer Toe- second Right Performed by: Julissa Taylor DO Authorized by: Julissa Taylor, DO Consent Consent obtained? verbal Consent given by: patient Risks discussed? procedural risks discussed Immediately prior to the procedure a time out was called and the performing provider verified the correct patient, procedure, equipment, cell support operator, and site/side marked as required. Debridement Details Performed by: physician Debridement type: surgical Level of debridement: subcutaneous tissue Pain control: lidocaine 2% Pain control administration type: topical Pre-debridement measurements Length (cm): 1.5 Width (cm): 1.5 Depth (cm): 0.2 Surface Area (cm^2): 2.25 Post-debridement measurements Length (cm): 1.5 Width (cm): 1.6 Depth (cm): 0.2 Percent debrided: 100% Surface Area (cm^2): 2.4 Area Debrided (cm^2): 2.4 Volume (cm^3): 0.48 Tissue and other material debrided: dermis, epidermis and subcutaneous tissue Devitalized tissue debrided: biofilm and slough Instrument(s) utilized: curette Bleeding: small Hemostasis obtained with: pressure Procedural pain (0-10): 0 Post-procedural pain: 0 Response to treatment: procedure was tolerated well Debridement Wound/Incision 08/23/23 Venous Ulcer Toe - third Right Performed by: Julissa Taylor DO Authorized by: Julissa Taylor, DO Consent Consent obtained? verbal Consent given by: patient Risks discussed? procedural risks discussed Immediately prior to the procedure a time out was called and the performing provider verified the correct patient, procedure, equipment, cell support operator, and site/side marked as required. Debridement Details Performed by: physician Debridement type: surgical Level of debridement: subcutaneous tissue Pain control: lidocaine 2% Pain control administration type: topical Pre-debridem (more content not included)... [facility] 09-27-2023 History of Present illness Narrative Images from the original note were not included. [facility] Wound Care Progress Note CHIEF COMPLAINT: Wound Care HISTORY OF PRESENT ILLNESS: The patient is a 62 y.o. male arrives for recheck wounds of R toes. Feels wounds are continuing to improve. REVIEW OF SYSTEMS: Review of Systems Constitutional: Negative. Negative for chills, fatigue and fever. See HPI Respiratory: Negative. Cardiovascular: Negative. Skin: Positive for wound. Negative for color change (from typical for patient) and rash. PHYSICAL EXAM: BP 94/63 Pulse 88 Temp 36.5 C (97.7 F) Ht 5' 10 (1.778 m) Wt 253 lb (115 kg) BMI 36.30 kg/m Physical Exam Vitals reviewed. Constitutional: General: He is not in acute distress. Appearance: Normal appearance. He is not ill-appearing or toxic-appearing. HENT: Ears: Comments: Hearing to conversational voice is normal. Pulmonary: Effort: Pulmonary effort is normal. Breath sounds: No wheezing (No audible wheeze). Skin: General: Skin is warm and dry. Comments: Wounds of toes continue to improve. Little slough. Good margins . See photos and measurements. Neurological: Mental Status: He is alert and oriented to person, place, and time. Psychiatric: Thought Content: Thought content normal. Wound/Incision 08/23/23 Venous Ulcer Toe- second Right (Active) Wound Image 09/27/23 1322 Site Assessment Maceration;Pale;[place];Sloughing;Yesneia nful 09/27/23 1322 Craine-Wound Assessment Macerated 09/27/23 1322 Wound Length (cm) 1.9 cm 09/27/23 1322 Wound Width (cm) 0.8 cm 09/27/23 1322 Wound Surface Area (cm^2) 1.52 cm^2 09/27/23 1322 Wound Depth (cm) 0.2 cm 09/27/23 1322 Wound Volume (cm^3) 0.304 cm^3 09/27/23 1322 Wound Healing % 24 09/27/23 1322 Drainage Description Serosanguineous;[place] 09/27/23 1322 Odor None 09/27/23 1322 Drainage Amount Moderate 09/27/23 1322 Treatments Cleansed 09/27/23 1322 Primary Dressing Calcium alginate;Collagen Ag 09/27/23 1322 Secondary Dressing 4x4 gauze 09/27/23 1322 Secured with Kerlex;Paper tape 09/06/23 1356 Compression Multilayer compression wrap - 3 layers;Unna boot 09/27/23 1322 Dressing Status New dressing;Clean, dry & intact 09/27/23 1322 Wound/Incision 08/23/23 Venous Ulcer Toe - third Right (Active) Wound Image 09/27/23 1320 Site Assessment [place];Pale 09/27/23 1320 Carine-Wound Assessment Macerated 09/27/23 1320 Wound Length (cm) 0.5 cm 09/27/23 132 Wound Width (cm) 0.3 cm 09/27/23 132 Wound Surface Area (cm^2) 0.15 cm^2 09/27/23 1320 Wound Depth (cm) 0.2 cm 09/27/23 132 Wound Volume (cm^3) 0.03 cm^3 09/27/23 132 Wound Healing % 76 09/27/23 132 Drainage Description Serosanguineous;[place] 09/27/23 1320 Odor None 09/27/23 132 Drainage Amount Moderate 09/27/23 132 Treatments Cleansed 09/27/23 132 Primary Dressing Collagen Ag;Calcium alginate 09/27/23 132 Secondary Dressing 4x4 gauze 09/27/23 132 Secured with Kerlex;Silk tape 09/06/23 1354 Compression Unna boot;Multilayer compression wrap - 3 layers 09/27/23 132 Dressing Status New dressing;Clean, dry & intact 09/27/23 132 1. 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 Venous insufficiency (chronic) (peripheral) 3. Lymphedema Pt ed, reassurance to pt and attendant, present for entire visit Collagen/alginate/hydralock/unna Profore lite to R lower leg Tubigrip to L lower leg Reviewed s/s infection Reviewed activity/compression/elevation Reviewed protein/nutrition Recheck one wk, sooner prn Pt agrees with plan. PLAN: Patient examined and evaluated. Patient understands all that has been explained and wishes to proceed with current treatment. Patient understands all risks, benefits, procedures, carine-operative management, and possible complications. All questions answered and no guarantees made or implied. Treatment: Orders Placed This Encounter Procedures Dressing Order: Collagen Ag, Calcium alginate; 4x4 gauze; Kerlex, Silk tape; Multilayer compression wrap - 3 layers, Unna boot Order Specific Question: Primary Dressing Answer: Collagen Ag Order Specific Question: Primary Dressing Answer: Calcium alginate Order Specific Question: Secondary Dressing Answer: 4x4 gauze Order Specific Question: Secured With Answer: Kerlex Order Specific Question: Secured With Answer: Silk tape Order Specific Question: Compression Answer: Multilayer compression wrap - 3 layers Order Specific Question: Compression Answer: Unna boot Please see attached Discharge Instructions documented in this encounter [facility] 09-27-2023 Hospital Discharge instructions Erika Cruz - 09/27/2023 1:15 PM EDT Return Appointment in: 1 week - Should you experience any significant changes in your wound(s) or have any questions regarding your home care instructions please contact the wound center at [phone] If after regular business hours, please call your family doctor or local emergency room. Edema Control: Extremity Option: right lower leg Elevate legs to the level of the heart or above for 30 minutes daily and/or when sitting Multilayer Compression Therapy- 3 layers: Do not get legs with compression wrap wet. If wraps seem too tight, elevate legs above level of heart for one hour. If no relief, call the wound center. Unna Boot: Do not remove Unna Boot. Keep dry. If pain or swelling or discoloration of toes noted, elevate legs above level of heart for 1 hour. If no relief, call the center. If unable to reach center, remove boot and keep leg elevated until contact with center can be made. Left lower leg - Apply Single Layer Tubigrip - (on am/off pm) Additional Orders/Instructions: Follow diet per physicians instructions - such as increasing protein intake to promote wound healing. Please begin including a protein supplement/shake to patient's diet to help with wound healing Nursing Care Facility: [facility] Wound Treatment: Wound: right toes Dressing Frequency: Keep dressing in place all week Wound Cleansing: May shower with protection - Protect wound and dressing with water repellant cover/cast cover (e.g., large plastic bag) which can be obtained at [facility] and may take shower. Primary Dressing: Collagen Ag 2x2 Secondary Dressing: Calcium Alginate 4x4 Secure With: Kerlex Roll gauze 4, Silk Tape 1 Compression: Unna boot & multilayer compression wrap - 3 layers (cover toes) documented in this encounter [facility] 09-27-2023 Hospital Discharge instructions Erika Cruz - 09/27/2023 1:15 PM EDT Return Appointment in: 1 week - Should you experience any significant changes in your wound(s) or have any questions regarding your home care instructions please contact the wound center at [phone] If after regular business hours, please call your family doctor or local emergency room. Edema Control: Extremity Option: right lower leg Elevate legs to the level of the heart or above for 30 minutes daily and/or when sitting Multilayer Compression Therapy- 3 layers: Do not get legs with compression wrap wet. If wraps seem too tight, elevate legs above level of heart for one hour. If no relief, call the wound center. Unna Boot: Do not remove Unna Boot. Keep dry. If pain or swelling or discoloration of toes noted, elevate legs above level of heart for 1 hour. If no relief, call the center. If unable to reach center, remove boot and keep leg elevated until contact with center can be made. Left lower leg - Apply Single Layer Tubigrip - (on am/off pm) Additional Orders/Instructions: Follow diet per physicians instructions - such as increasing protein intake to promote wound healing. Please begin including a protein supplement/shake to patient's diet to help with wound healing Nursing Care Facility: [facility] Wound Treatment: Wound: right toes Dressing Frequency: Keep dressing in place all week Wound Cleansing: May shower with protection - Protect wound and dressing with water repellant cover/cast cover (e.g., large plastic bag) which can be obtained at [facility] and may take shower. Primary Dressing: Collagen Ag 2x2 Secondary Dressing: Calcium Alginate 4x4 Secure With: Kerlex Roll gauze 4, Silk Tape 1 Compression: Unna boot & multilayer compression wrap - 3 layers (cover toes) documented in this encounter [facility] 09-27-2023 Miscellaneous Notes Encounter addended by: Marycarmen Corona RN on: 10/05/2023 3:58 PM Actions taken: Charge Capture section accepted documented in this encounter [facility] 09-27-2023 Note Encounter addended b y: Marycarmen Corona RN on: 10/05/2023 3:58 PM Actions taken: Charge Capture section accepted [facility] 09-27-2023 Note Encounter addended b y: Marycarmen Corona RN on: 10/05/2023 3:58 PM Actions taken: Charge Capture section accepted [facility] 09-27-2023 Note [facility] Wound Care Progress Note CHIEF COMPLAINT: Wound Care HISTORY OF PRESENT ILLNESS: The patient is a 62 y.o. male arrives for recheck wounds of R toes. Feels wounds are continuing to improve. REVIEW OF SYSTEMS: Review of Systems Constitutional: Negative. Negative for chills, fatigue and fever. See HPI Respiratory: Negative. Cardiovascular: Negative. Skin: Positive for wound. Negative for color change (from typical for patient) and rash. PHYSICAL EXAM: BP 94/63 Pulse 88 Temp 36.5 ?C (97.7 ?F) Ht 5' 10 (1.778 m) Wt 253 lb (115 kg) BMI 36.30 kg/m? Physical Exam Vitals reviewed. Constitutional: General: He is not in acute distress. Appearance: Normal appearance. He is not ill-appearing or toxic-appearing. HENT: Ears: Comments: Hearing to conversational voice is normal. Pulmonary: Effort: Pulmonary effort is normal. Breath sounds: No wheezing (No audible wheeze). Skin: General: Skin is warm and dry. Comments: Wounds of toes continue to improve. Little slough. Good margins . See photos and measurements. Neurological: Mental Status: He is alert and oriented to person, place, and time. Psychiatric: Thought Content: Thought content normal. Wound/Incision 08/23/23 Venous Ulcer Toe- second Right (Active) Wound Image 09/27/23 1322 Site Assessment Maceration;Pale;[place];Sloughing;Yesenia nful 09/27/23 1322 Carine-Wound Assessment Mac[place] 09/27/23 1322 Wound Length (cm) 1.9 cm 09/27/23 1322 Wound Width (cm) 0.8 cm 09/27/23 1322 Wound Surface Area (cm^2) 1.52 cm^2 09/27/23 1322 Wound Depth (cm) 0.2 cm 09/27/23 1322 Wound Volume (cm^3) 0.304 cm^3 09/27/23 1322 Wound Healing % 24 09/27/23 1322 Drainage Description Serosanguineous;[place] 09/27/23 1322 Odor None 09/27/23 1322 Drainage Amount Moderate 09/27/23 1322 Treatments Cleansed 09/27/23 1322 Primary Dressing Calcium alginate;Collagen Ag 09/27/23 1322 Secondary Dressing 4x4 gauze 09/27/23 132 Secured with Kerlex;Paper tape 09/06/23 1356 Compression Multilayer compression wrap - 3 layers;Unna boot 09/27/23 132 Dressing Status New dressing;Clean, dry & intact 09/27/23 1322 Wound/Incision 08/23/23 Venous Ulcer Toe - third Right (Active) Wound Image 09/27/23 132 Site Assessment [place];Pale 09/27/23 132 Carine-Wound Assessment Macerated 09/27/23 1320 Wound Length (cm) 0.5 cm 09/27/23 1320 Wound Width (cm) 0.3 cm 09/27/23 1320 Wound Surface Area (cm^2) 0.15 cm^2 09/27/23 1320 Wound Depth (cm) 0.2 cm 09/27/23 1320 Wound Volume (cm^3) 0.03 cm^3 09/27/23 1320 Wound Healing % 76 09/27/23 1320 Drainage Description Serosanguineous;[place] 09/27/23 1320 Odor None 09/27/23 1320 Drainage Amount Moderate 09/27/23 1320 Treatments Cleansed 09/27/23 1320 Primary Dressing Collagen Ag;Calcium alginate 09/27/23 1320 Secondary Dressing 4x4 gauze 09/27/23 1320 Secured with Kerlex;Silk tape 09/06/23 1354 Compression Unna boot;Multilayer compression wrap - 3 layers 09/27/23 1320 Dressing Status New dressing;Clean, dry & intact 09/27/23 1320 1. 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 Venous insufficiency (chronic) (peripheral) 3. Lymphedema Pt ed, reassurance to pt and attendant, present for entire visit Collagen/alginate/hydralock/unna Profore lite to R lower leg Tubigrip to L lower leg Reviewed s/s infection Reviewed activity/compression/elevation Reviewed protein/nutrition Recheck one wk, sooner prn Pt agrees with plan. PLAN: Patient examined and evaluated. Patient understands all that has been explained and wishes to proceed with current treatment. Patient understands all risks, benefits, procedures, carine-operative management, and possible complications. All questions answered and no guarantees made or implied. Treatment: Orders Placed This Encounter Procedures Dressing Order: Collagen Ag, Calcium alginate; 4x4 gauze; Kerlex, Silk tape; Multilayer compression wrap - 3 layers, Unna boot Order Specific Question: Primary Dressing Answer: Collagen Ag Order Specific Question: Primary Dressing Answer: Calcium alginate Order Specific Question: Secondary Dressing Answer: 4x4 gauze Order Specific Question: Secured With Answer: Kerlex Order Specific Question: Secured With Answer: Silk tape Order Specific Question: Compression Answer: Multilayer compression wrap - 3 layers Order Specific Question: Compression Answer: Unna boot Please see attached Discharge Instructions [facility] 09-20-2023 History of Present illness Narrative Images from the original note were not included. [facility] Wound Care Progress Note CHIEF COMPLAINT: Wound Care HISTORY OF PRESENT ILLNESS: The patient is a 62 y.o. male arrives for recheck wounds of R toes. Feels wounds are continuing to improve. REVIEW OF SYSTEMS: Review of Systems Constitutional: Negative. Negative for chills, fatigue and fever. See HPI Respiratory: Negative. Cardiovascular: Negative. Skin: Positive for wound. Negative for color change (from typical for patient) and rash. PHYSICAL EXAM: BP 115/75 Pulse 71 Temp 36.2 C (97.2 F) Ht 5' 10 (1.778 m) Wt 253 lb (115 kg) BMI 36.30 kg/m Physical Exam Vitals reviewed. Constitutional: General: He is not in acute distress. Appearance: Normal appearance. He is not ill-appearing or toxic-appearing. HENT: Ears: Comments: Hearing to conversational voice is normal. Pulmonary: Effort: Pulmonary effort is normal. Breath sounds: No wheezing (No audible wheeze). Skin: General: Skin is warm and dry. Comments: Wounds of toes visibly improved again since last visit .Some slough. Good margins . See photos and measurements. Neurological: Mental Status: He is alert and oriented to person, place, and time. Psychiatric: Thought Content: Thought content normal. Wound/Incision 08/23/23 Venous Ulcer Toe- second Right (Active) Wound Image 09/20/23 1447 Site Assessment Maceration;Pale;[place];Sloughing 09/20/23 1447 Carine-Wound Assessment Macerated 09/20/23 1447 Wound Length (cm) 1.9 cm 09/20/23 1447 Wound Width (cm) 2.2 cm 09/20/23 1447 Wound Surface Area (cm^2) 4.18 cm^2 09/20/23 1447 Wound Depth (cm) 0.2 cm 09/20/23 1447 Wound Volume (cm^3) 0.836 cm^3 09/20/23 1447 Wound Healing % -109 09/20/23 1447 Drainage Description Serosanguineous;Pastrana 09/20/23 1447 Odor None 09/20/23 1447 Drainage Amount Moderate 09/20/23 1447 Treatments Cleansed 09/20/23 1447 Primary Dressing Calcium alginate;Collagen Ag 09/06/23 1356 Secondary Dressing 4x4 gauze;Sorbex 09/06/23 1356 Secured with Kerlex;Paper tape 09/06/23 1356 Compression Multilayer compression wrap - 3 layers;Unna boot 09/06/23 1356 Dressing Status New dressing;Clean, dry & intact 09/06/23 1356 Wound/Incision 08/23/23 Venous Ulcer Toe - third Right (Active) Wound Image 09/20/23 1445 Site Assessment Pale;[place];Maceration 09/20/23 1445 Carine-Wound Assessment Maceration 09/20/23 1445 Wound Length (cm) 0.7 cm 09/20/23 1445 Wound Width (cm) 0.5 cm 09/20/23 1445 Wound Surface Area (cm^2) 0.35 cm^2 09/20/23 1445 Wound Depth (cm) 0.2 cm 09/20/23 1445 Wound Volume (cm^3) 0.07 cm^3 09/20/23 1445 Wound Healing % 44 09/20/23 1445 Drainage Description Serosanguineous;[place] 09/20/23 1445 Odor None 09/20/23 1445 Drainage Amount Moderate 09/20/23 1445 Treatments Cleansed 09/20/23 1445 Primary Dressing Calcium alginate;Collagen Ag 09/06/23 1354 Secondary Dressing 4x4 gauze;Sorbex 09/06/23 1354 Secured with Kerlex;Silk tape 09/06/23 1354 Compression Multilayer compression wrap - 3 layers;Unna boot 09/06/23 1354 Dressing Status New dressing;Clean, dry & intact 09/06/23 1354 1. 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 Venous insufficiency (chronic) (peripheral) 3. Lymphedema Pt ed, reassurance to pt and attendant, present for entire visit Collagen/alginate/hydralock/unna Profore lite to R lower leg Tubigrip to L lower leg Reviewed s/s infection Reviewed activity/compression/elevation Reviewed protein/nutrition Consider lymphedema pumps Recheck one wk, sooner prn Pt agrees with plan. PLAN: Patient examined and evaluated. Patient understands all that has been explained and wishes to proceed with current treatment. Patient understands all risks, benefits, procedures, carine-operative management, and possible complications. All questions answered and no guarantees made or implied. Treatment: Orders Placed This Encounter Procedures Dressing Order: Collagen Ag; Weekly; (calcium alginate); Kerlex, Silk tape; Multilayer compression wrap - 3 layers (cover toes), Unna boot Order Specific Question: Primary Dressing Answer: Collagen Ag Order Specific Question: Dressing Frequency Answer: Weekly Order Specific Question: Secured With Answer: Kerlex Order Specific Question: Secured With Answer: Silk tape Order Specific Question: Compression Answer: Multilayer compression wrap - 3 layers Comments: cover toes Order Specific Question: Compression Answer: Unna boot Please see attached Discharge Instructions documented in this encounter [facility] 09-20-2023 Hospital Discharge instructions Marycarmen Corona RN - 09/20/2023 2:15 PM EDT Return Appointment in: 1 week - Should you experience any significant changes in your wound(s) or have any questions regarding your home care instructions please contact the wound center at [phone] If after regular business hours, please call your family doctor or local emergency room. Edema Control: Extremity Option: right lower leg Elevate legs to the level of the heart or above for 30 minutes daily and/or when sitting Multilayer Compression Therapy- 3 layers: Do not get legs with compression wrap wet. If wraps seem too tight, elevate legs above level of heart for one hour. If no relief, call the wound center. Unna Boot: Do not remove Unna Boot. Keep dry. If pain or swelling or discoloration of toes noted, elevate legs above level of heart for 1 hour. If no relief, call the center. If unable to reach center, remove boot and keep leg elevated until contact with center can be made. Left lower leg - Apply Single Layer Tubigrip - (on am/off pm) Additional Orders/Instructions: Follow diet per physicians instructions - such as increasing protein intake to promote wound healing. Please begin including a protein supplement/shake to patient's diet to help with wound healing Nursing Care Facility: [facility] Wound Treatment: Wound: right toes Dressing Frequency: Keep dressing in place all week Wound Cleansing: May shower with protection - Protect wound and dressing with water repellant cover/cast cover (e.g., large plastic bag) which can be obtained at [facility] and may take shower. Primary Dressing: Collagen Ag 2x2 Secondary Dressing: Calcium Alginate 4x4 Secure With: Kerlex Roll gauze 4, Silk Tape 1 Compression: Unna boot & multilayer compression wrap - 3 layers (cover toes) documented in this encounter [facility] 09-20-2023 Note [facility] Wound Care Progress Note CHIEF COMPLAINT: Wound Care HISTORY OF PRESENT ILLNESS: The patient is a 62 y.o. male arrives for recheck wounds of R toes. Feels wounds are continuing to improve. REVIEW OF SYSTEMS: Review of Systems Constitutional: Negative. Negative for chills, fatigue and fever. See HPI Respiratory: Negative. Cardiovascular: Negative. Skin: Positive for wound. Negative for color change (from typical for patient) and rash. PHYSICAL EXAM: BP 115/75 Pulse 71 Temp 36.2 ?C (97.2 ?F) Ht 5' 10 (1.778 m) Wt 253 lb (115 kg) BMI 36.30 kg/m? Physical Exam Vitals reviewed. Constitutional: General: He is not in acute distress. Appearance: Normal appearance. He is not ill-appearing or toxic-appearing. HENT: Ears: Comments: Hearing to conversational voice is normal. Pulmonary: Effort: Pulmonary effort is normal. Breath sounds: No wheezing (No audible wheeze). Skin: General: Skin is warm and dry. Comments: Wounds of toes visibly improved again since last visit .Some slough. Good margins . See photos and measurements. Neurological: Mental Status: He is alert and oriented to person, place, and time. Psychiatric: Thought Content: Thought content normal. Wound/Incision 08/23/23 Venous Ulcer Toe- second Right (Active) Wound Image 09/20/231446 Site Assessment Maceration;Pale;[place];Sloughing 09/20/231446 Carine-Wound Assessment Macerated 09/20/231446 Wound Length (cm) 1.9 cm 09/20/23 144 Wound Width (cm) 2.2 cm 09/20/23 144 Wound Surface Area (cm^2) 4.18 cm^2 09/20/23 1447 Wound Depth (cm) 0.2 cm 09/20/23 1447 Wound Volume (cm^3) 0.836 cm^3 09/20/23 1447 Wound Healing % -109 09/20/23 144 Drainage Description Serosanguineous;[place] 09/20/23 144 Odor None 09/20/231446 Drainage Amount Moderate 09/20/231446 Treatments Cleansed 06/12/24 1447 Primary Dressing Calcium alginate;Collagen Ag 09/06/23 1356 Secondary Dressing 4x4 gauze;Sorbex 09/06/23 1356 Secured with Kerlex;Paper tape 09/06/23 1356 Compression Multilayer compression wrap - 3 layers;Unna boot 09/06/23 1356 Dressing Status New dressing;Clean, dry & intact 09/06/23 1356 Wound/Incision 08/23/23 Venous Ulcer Toe - third Right (Active) Wound Image 09/20/23 1445 Site Assessment Pale;[place];Maceration 09/20/23 1445 Carine-Wound Assessment Maceration 09/20/23 1445 Wound Length (cm) 0.7 cm 09/20/23 1445 Wound Width (cm) 0.5 cm 09/20/23 1445 Wound Surface Area (cm^2) 0.35 cm^2 09/20/23 1445 Wound Depth (cm) 0.2 cm 09/20/23 1445 Wound Volume (cm^3) 0.07 cm^3 09/20/23 1445 Wound Healing % 44 09/20/23 1445 Drainage Description Serosanguineous;[place] 09/20/23 1445 Odor None 09/20/23 1445 Drainage Amount Moderate 09/20/23 1445 Treatments Cleansed 09/20/23 1445 Primary Dressing Calcium alginate;Collagen Ag 09/06/23 1354 Secondary Dressing 4x4 gauze;Sorbex 09/06/23 1354 Secured with Kerlex;Silk tape 09/06/23 1354 Compression Multilayer compression wrap - 3 layers;Unna boot 09/06/23 1354 Dressing Status New dressing;Clean, dry & intact 09/06/23 1354 1. 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 Venous insufficiency (chronic) (peripheral) 3. Lymphedema Pt ed, reassurance to pt and attendant, present for entire visit Collagen/alginate/hydralock/unna Profore lite to R lower leg Tubigrip to L lower leg Reviewed s/s infection Reviewed activity/compression/elevation Reviewed protein/nutrition Consider lymphedema pumps Recheck one wk, sooner prn Pt agrees with plan. PLAN: Patient examined and evaluated. Patient understands all that has been explained and wishes to proceed with current treatment. Patient understands all risks, benefits, procedures, carine-operative management, and possible complications. All questions answered and no guarantees made or implied. Treatment: Orders Placed This Encounter Procedures Dressing Order: Collagen Ag; Weekly; (calcium alginate); Kerlex, Silk tape; Multilayer compression wrap - 3 layers (cover toes), Unna boot Order Specific Question: Primary Dressing Answer: Collagen Ag Order Specific Question: Dressing Frequency Answer: Weekly Order Specific Question: Secured With Answer: Kerlex Order Specific Question: Secured With Answer: Silk tape Order Specific Question: Compression Answer: Multilayer compression wrap - 3 layers Comments: cover toes Order Specific Question: Compression Answer: Unna boot Please see attached Discharge Instructions [facility] 09-13-2023 History of Present illness Narrative Associated Order(s): Debridement; Debridement Post-Procedure Diagnose(s): Lymphedema; Venous insufficiency (chronic) (peripheral); 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 [facility] Wound Care Progress Note CHIEF COMPLAINT: Wound Care HISTORY OF PRESENT ILLNESS: The patient is a 62 y.o. male arrives with wounds of R foot and R lower leg. History of venous insufficiency. Has had similar in past. Feels leg wounds are gone and foot wounds improving. REVIEW OF SYSTEMS: Review of Systems Constitutional: Negative. Negative for chills, fatigue and fever. See HPI, PMH, PSH Respiratory: Negative. Cardiovascular: Negative. Skin: Positive for wound. Negative for color change (from typical for patient) and rash. PHYSICAL EXAM: BP 105/60 Pulse 58 Temp 36.4 C (97.5 F) Resp 20 Physical Exam Vitals reviewed. Constitutional: General: He is not in acute distress. Appearance: Normal appearance. He is not ill-appearing or toxic-appearing. HENT: Ears: Comments: Hearing to conversational voice is normal. Pulmonary: Effort: Pulmonary effort is normal. Breath sounds: No wheezing (No audible wheeze). Skin: General: Skin is warm and dry. Comments: Wounds of R lower leg, resolved. Foot wounds on dorsum. Fat level. Do not appear cellulitic. Wounds of toes visibly improved this visit .Some slough. Good margins . See photos and measurements. Neurological: Mental Status: He is alert and oriented to person, place, and time. Psychiatric: Thought Content: Thought content normal. Wound/Incision 08/23/23 Venous Ulcer Toe- second Right (Active) Wound Image 09/13/23 1432 Site Assessment Maceration;[place];Pale;Sloughing 09/13/23 1432 Carine-Wound Assessment Macerated 09/13/23 1432 Wound Length (cm) 1.9 cm 09/13/23 1432 Wound Width (cm) 2.2 cm 09/13/23 1432 Wound Surface Area (cm^2) 4.18 cm^2 09/13/23 1432 Wound Depth (cm) 0.2 cm 09/13/23 1432 Wound Volume (cm^3) 0.836 cm^3 09/13/23 1432 Wound Healing % -109 09/13/23 1432 Drainage Description Serosanguineous 09/13/23 1432 Odor Mild 09/13/23 1432 Drainage Amount Moderate 09/13/23 1432 Treatments Cleansed 09/13/23 1432 Primary Dressing Calcium alginate;Collagen Ag 09/06/23 1356 Secondary Dressing 4x4 gauze;Sorbex 09/06/23 1356 Secured with Kerlex;Paper tape 09/06/23 1356 Compression Multilayer compression wrap - 3 layers;Unna boot 09/06/23 1356 Dressing Status New dressing;Clean, dry & intact 09/06/23 1356 Wound/Incision 08/23/23 Venous Ulcer Toe - third Right (Active) Wound Image 09/13/23 1434 Site Assessment Maceration;Pale;[place] 09/13/23 1434 Carine-Wound Assessment Maceration 09/13/23 1434 Wound Length (cm) 0.8 cm 09/13/23 1434 Wound Width (cm) 0.7 cm 09/13/23 1434 Wound Surface Area (cm^2) 0.56 cm^2 09/13/23 1434 Wound Depth (cm) 0.2 cm 09/13/23 1434 Wound Volume (cm^3) 0.112 cm^3 09/13/23 1434 Wound Healing % 11 09/13/23 1434 Drainage Description Serosanguineous 09/13/23 1434 Odor Mild 09/13/23 1434 Drainage Amount Moderate 09/13/23 1434 Treatments Cleansed 09/13/23 1434 Primary Dressing Calcium alginate;Collagen Ag 09/06/23 1354 Secondary Dressing 4x4 gauze;Sorbex 09/06/23 1354 Secured with Kerlex;Silk tape 09/06/23 1354 Compression Multilayer compression wrap - 3 layers;Unna boot 09/06/23 1354 Dressing Status New dressing;Clean, dry & intact 09/06/23 1354 Debridement Wound/Incision 08/23/23 Venous Ulcer Toe- second Right Performed by: Julissa Taylor DO Authorized by: Julissa Taylor, DO Consent Consent obtained? verbal Consent given by: patient Risks discussed? procedural risks discussed Immediately prior to the procedure a time out was called and the performing provider verified the correct patient, procedure, equipment, cell support operator, and site/side marked as required. Debridement Details Performed by: physician Debridement type: surgical Level of debridement: subcutaneous tissue Pain control: lidocaine 2% Pain control administration type: topical Pre-debridement measurements Length (cm): 1.9 Width (cm): 2.2 Depth (cm): 0.2 Surface Area (cm^2): 4.18 Post-debridement measurements Length (cm): 2 Width (cm): 2.2 Depth (cm): 0.2 Percent debrided: 100% Surface Area (cm^2): 4.4 Area Debrided (cm^2): 4.4 Volume (cm^3): 0.88 Tissue and other material debrided: dermis, epidermis and subcutaneous tissue Devitalized tissue debrided: biofilm and slough Instrument(s) utilized: curette Bleeding: small Hemostasis obtained with: pressure Procedural pain (0-10): 1 Post-procedural pain: 0 Response to treatment: procedure was tolerated well Debridement Wound/Incision 08/23/23 Venous Ulcer Toe - third Right Performed by: Julissa Taylor DO Authorized by: Julissa Taylor, DO Consent Consent obtained? verbal Consent given by: patient Risks discussed? procedural risks discussed Immediately prior to the procedure a time out was called and the performing provider verified the correct patient, procedure, equipment, cell support operator, and site/side marked as required. Debridement Details Performed by: physician Debridement type: surgical Level of debridement: subcutaneous tissue Pain control: lidocaine 2% Pain control administration type: topical Pre-debridement measurements Length (cm): 0.8 Width (cm): 0.7 Depth (cm): 0.2 Surface Area (cm^2): 0.56 Post-debridement measurements Length (cm): 0.9 Width (cm): 0.7 Depth (cm): 0.3 Percent debrided: 100% Surface Area (cm^2): 0.63 Area Debrided (cm^2): 0.63 Volume (cm^3): 0.19 Tissue and other material debrided: dermis, epidermis and subcutaneous tissue Devitalized tissue debrided: biofilm, callus and slough Instrument(s) utilized: curette and scissors Bleeding: small Hemostasis obtained with: pressure Procedural pain (0-10): 2 Post-procedural pain: 0 Response to treatment: procedure was tolerated well 1. 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 Venous insufficiency (chronic) (peripheral) 3. Lymphedema Pt ed, reassurance to pt and attendant, present for entire visit Collagen/alginate/hydralock/unna Profore lite to R lower leg Tubigrip to L lower leg Reviewed s/s infection Reviewed activity/compression/elevation Reviewed protein/nutrition Consider lymphedema pumps Recheck one wk, sooner prn Pt agrees with plan. PLAN: Patient examined and evaluated. Patient understands all that has been explained and wishes to proceed with current treatment. Patient understands all risks, benefits, procedures, carine-operative management, and possible complications. All questions answered and no guarantees made or implied. Treatment: Orders Placed This Encounter Procedures Dressing Order: Collagen Ag, Calcium alginate; Weekly; 4x4 gauze, Hydralock pads (multiple sizes); Kerlex, Silk tape; Unna boot, Multilayer compression wrap - 3 layers Cover toes Order Specific Question: Primary Dressing Answer: Collagen Ag Order Specific Question: Primary Dressing Answer: Calcium alginate Order Specific Question: Dressing Frequency Answer: Weekly Order Specific Question: Secondary Dressing Answer: 4x4 gauze Order Specific Question: Secondary Dressing Answer: Hydralock pads (multiple sizes) Order Specific Question: Secured With Answer: Kerlex Order Specific Question: Secured With Answer: Silk tape Order Specific Question: Compression Answer: Unna boot Order Specific Question: Compression Answer: Multilayer compression wrap - 3 layers Please see attached Discharge Instructions documented in this encounter [facility] 09-13-2023 Hospital Discharge instructions Debbie Mckeon RN - 09/13/2023 2:00 PM EDT Return Appointment in: 1 week - Should you experience any significant changes in your wound(s) or have any questions regarding your home care instructions please contact the wound center at [phone] If after regular business hours, please call your family doctor or local emergency room. Edema Control: Extremity Option: right lower leg Elevate legs to the level of the heart or above for 30 minutes daily and/or when sitting Right lower leg - Multilayer Compression Therapy- 3 layers: Do not get legs with compression wrap wet. If wraps seem too tight, elevate legs above level of heart for one hour. If no relief, call the wound center. , Unna Boot: Do not remove Unna Boot. Keep dry. If pain or swelling or discoloration of toes noted, elevate legs above level of heart for 1 hour. If no relief, call the center. If unable to reach center, remove boot and keep leg elevated until contact with center can be made. Left lower leg - Apply Single Layer Tubigrip - (on am/off pm) Additional Orders/Instructions: Follow diet per physicians instructions - such as increasing protein intake to promote wound healing. Please begin including a protein supplement/shake to patient's diet to help with wound healing Nursing Care Facility: [facility] Wound Treatment: Wound: right toes & lower leg Dressing Frequency: Keep dressing in place all week Wound Cleansing: May shower with protection - Protect wound and dressing with water repellant cover/cast cover (e.g., large plastic bag) which can be obtained at [facility] and may take shower. Primary Dressing: Collagen Ag 2x2 Secondary Dressing: Calcium Alginate 4x4 & hydralock Secure With: Kerlex Roll gauze 4, Silk Tape 1 Compression: Unna boot & multilayer compression wrap - 3 layers (cover toes) documented in this encounter [facility] 09-13-2023 Note [facility] Wound Care Progress Note CHIEF COMPLAINT: Wound Care HISTORY OF PRESENT ILLNESS: The patient is a 62 y.o. male arrives with wounds of R foot and R lower leg. History of venous insufficiency. Has had similar in past. Feels leg wounds are gone and foot wounds improving. REVIEW OF SYSTEMS: Review of Systems Constitutional: Negative. Negative for chills, fatigue and fever. See HPI, PMH, PSH Respiratory: Negative. Cardiovascular: Negative. Skin: Positive for wound. Negative for color change (from typical for patient) and rash. PHYSICAL EXAM: BP 105/60 Pulse 58 Temp 36.4 ?C (97.5 ?F) Resp 20 Physical Exam Vitals reviewed. Constitutional: General: He is not in acute distress. Appearance: Normal appearance. He is not ill-appearing or toxic-appearing. HENT: Ears: Comments: Hearing to conversational voice is normal. Pulmonary: Effort: Pulmonary effort is normal. Breath sounds: No wheezing (No audible wheeze). Skin: General: Skin is warm and dry. Comments: Wounds of R lower leg, resolved. Foot wounds on dorsum. Fat level. Do not appear cellulitic. Wounds of toes visibly improved this visit .Some slough. Good margins . See photos and measurements. Neurological: Mental Status: He is alert and oriented to person, place, and time. Psychiatric: Thought Content: Thought content normal. Wound/Incision 08/23/23 Venous Ulcer Toe- second Right (Active) Wound Image 09/13/23 1432 Site Assessment Maceration;[place];Pale;Sloughing 09/13/23 1432 Carine-Wound Assessment Macerated 09/13/23 1432 Wound Length (cm) 1.9 cm 09/13/23 1432 Wound Width (cm) 2.2 cm 09/13/23 1432 Wound Surface Area (cm^2) 4.18 cm^2 09/13/23 1432 Wound Depth (cm) 0.2 cm 09/13/23 1432 Wound Volume (cm^3) 0.836 cm^3 09/13/23 1432 Wound Healing % -109 09/13/23 1432 Drainage Description Serosanguineous 09/13/23 1432 Odor Mild 09/13/23 1432 Drainage Amount Moderate 09/13/23 1432 Treatments Cleansed 09/13/23 1432 Primary Dressing Calcium alginate;Collagen Ag 09/06/23 1356 Secondary Dressing 4x4 gauze;Sorbex 09/06/23 1356 Secured with Kerlex;Paper tape 09/06/23 1356 Compression Multilayer compression wrap - 3 layers;Unna boot 09/06/23 1356 Dressing Status New dressing;Clean, dry & intact 09/06/23 1356 Wound/Incision 08/23/23 Venous Ulcer Toe - third Right (Active) Wound Image 09/13/23 1434 Site Assessment Maceration;Pale;[place] 09/13/23 1434 Carine-Wound Assessment Maceration 09/13/23 1434 Wound Length (cm) 0.8 cm 09/13/23 1434 Wound Width (cm) 0.7 cm 09/13/23 1434 Wound Surface Area (cm^2) 0.56 cm^2 09/13/23 1434 Wound Depth (cm) 0.2 cm 09/13/23 1434 Wound Volume (cm^3) 0.112 cm^3 09/13/23 1434 Wound Healing % 11 09/13/23 1434 Drainage Description Serosanguineous 09/13/23 1434 Odor Mild 09/13/23 1434 Drainage Amount Moderate 09/13/23 1434 Treatments Cleansed 09/13/23 1434 Primary Dressing Calcium alginate;Collagen Ag 09/06/23 1354 Secondary Dressing 4x4 gauze;Sorbex 09/06/23 1354 Secured with Kerlex;Silk tape 09/06/23 1354 Compression Multilayer compression wrap - 3 layers;Unna boot 09/06/23 1354 Dressing Status New dressing;Clean, dry & intact 09/06/23 1354 Debridement Wound/Incision 08/23/23 Venous Ulcer Toe- second Right Performed by: Julissa Taylor DO Authorized by: Julissa Taylor, DO Consent Consent obtained? verbal Consent given by: patient Risks discussed? procedural risks discussed Immediately prior to the procedure a time out was called and the performing provider verified the correct patient, procedure, equipment, cell support operator, and site/side marked as required. Debridement Details Performed by: physician Debridement type: surgical Level of debridement: subcutaneous tissue Pain control: lidocaine 2% Pain control administration type: topical Pre-debridement measurements Length (cm): 1.9 Width (cm): 2.2 Depth (cm): 0.2 Surface Area (cm^2): 4.18 Post-debridement measurements Length (cm): 2 Width (cm): 2.2 Depth (cm): 0.2 Percent debrided: 100% Surface Area (cm^2): 4.4 Area Debrided (cm^2): 4.4 Volume (cm^3): 0.88 Tissue and other material debrided: dermis, epidermis and subcutaneous tissue Devitalized tissue debrided: biofilm and slough Instrument(s) utilized: curette Bleeding: small Hemostasis obtained with: pressure Procedural pain (0-10): 1 Post-procedural pain: 0 Response to treatment: procedure was tolerated well Debridement Wound/Incision 08/23/23 Venous Ulcer Toe - third Right Performed by: Julissa Taylor DO Authorized by: Julissa Taylor, DO Consent Consent obtained? verbal Consent given by: patient Risks discussed? procedural risks discussed Immediately prior to the procedure a time out was called and the performing provider verified the correct patient, procedure, equipment, cell support operator, and site/side marked as required. Debridement Details Performed by: larry (more content not included)... [facility] 09-06-2023 History of Present illness Narrative Associated Order(s): Debridement; Debridement; Debridement Post-Procedure Diagnose(s): Lymphedema; Venous insufficiency (chronic) (peripheral); Non-pressure chronic ulcer right lower leg, limited to breakdown skin (HCC) Images from the original note were not included. [facility] Wound Care Progress Note CHIEF COMPLAINT: Wound Care HISTORY OF PRESENT ILLNESS: The patient is a 62 y.o. male arrives with wounds of R foot and R lower leg. History of venous insufficiency. Has had similar in past. Feels they are improving. Medications reviewed Medical history reviewed Allergies reviewed REVIEW OF SYSTEMS: Review of Systems Constitutional: Negative. Negative for chills, fatigue and fever. See HPI, PMH, PSH Respiratory: Negative. Cardiovascular: Negative. Skin: Positive for wound. Negative for color change (from typical for patient) and rash. PHYSICAL EXAM: BP 119/80 Pulse 57 Temp 36.4 C (97.6 F) Ht 5' 10 (1.778 m) Wt 253 lb (115 kg) BMI 36.30 kg/m Physical Exam Vitals reviewed. Constitutional: General: He is not in acute distress. Appearance: Normal appearance. He is not ill-appearing or toxic-appearing. HENT: Ears: Comments: Hearing to conversational voice is normal. Pulmonary: Effort: Pulmonary effort is normal. Breath sounds: No wheezing (No audible wheeze). Skin: General: Skin is warm and dry. Comments: Wounds of R lower leg, shallow. Clean periwounds. No evidence of cellulitis. Foot wounds on dorsum. Fat level. Do not appear cellulitic. See photos and measurements. Neurological: Mental Status: He is alert and oriented to person, place, and time. Psychiatric: Thought Content: Thought content normal. Wound/Incision 08/23/23 Venous Ulcer Toe- second Right (Active) Wound Image 09/06/23 1356 Site Assessment [place];Pale;Sloughing 09/06/23 1356 Carine-Wound Assessment Moist 09/06/23 135 Wound Length (cm) 1.8 cm 09/06/23 135 Wound Width (cm) 2.5 cm 09/06/23 1356 Wound Surface Area (cm^2) 4.5 cm^2 09/06/23 135 Wound Depth (cm) 0.2 cm 09/06/23 135 Wound Volume (cm^3) 0.9 cm^3 09/06/23 1356 Wound Healing % -125 09/06/23 135 Drainage Description Serosanguineous;Yellow 09/06/23 135 Odor Mild 09/06/23 135 Drainage Amount Moderate 09/06/23 1356 Treatments Cleansed 09/06/23 1356 Primary Dressing Calcium alginate;Collagen Ag 09/06/23 135 Secondary Dressing 4x4 gauze;Sorbex 09/06/23 135 Secured with Kerlex;Paper tape 09/06/23 135 Compression Multilayer compression wrap - 3 layers;Unna boot 09/06/23 135 Dressing Status New dressing;Clean, dry & intact 09/06/23 135 Wound/Incision 08/23/23 Venous Ulcer Toe - third Right (Active) Wound Image 09/06/23 1354 Site Assessment Pale;[place];Sloughing 09/06/231353 Carine-Wound Assessment Moist 09/06/231353 Wound Length (cm) 0.9 cm 09/06/231353 Wound Width (cm) 0.9 cm 09/06/231353 Wound Surface Area (cm^2) 0.81 cm^2 09/06/231353 Wound Depth (cm) 0.2 cm 09/06/231353 Wound Volume (cm^3) 0.162 cm^3 09/06/231353 Wound Healing % -29 09/06/231353 Drainage Description Serosanguineous;Yellow 09/06/23 135 Odor Mild 09/06/231353 Drainage Amount Moderate 09/06/231353 Treatments Cleansed 09/06/231353 Primary Dressing Calcium alginate;Collagen Ag 09/06/231353 Secondary Dressing 4x4 gauze;Sorbex 09/06/231353 Secured with Kerlex;Silk tape 09/06/231353 Compression Multilayer compression wrap - 3 layers;Unna boot 09/06/231353 Dressing Status New dressing;Clean, dry & intact 09/06/231353 Wound/Incision 08/23/23 Venous Ulcer Leg Right;Circumferential (Active) Wound Image 09/06/231348 Site Assessment Pale;Red 09/06/231348 Carine-Wound Assessment Pale;[place] 09/06/231348 Wound Length (cm) 1.8 cm 09/06/231348 Wound Width (cm) 1.2 cm 09/06/231348 Wound Surface Area (cm^2) 2.16 cm^2 09/06/231348 Wound Depth (cm) 0.1 cm 09/06/231348 Wound Volume (cm^3) 0.216 cm^3 09/06/231348 Wound Healing % 98 09/06/231348 Drainage Description Serosanguineous 09/06/23 1349 Odor None 09/06/23 134 Drainage Amount Small 09/06/23 1349 Treatments Cleansed 09/06/231348 Primary Dressing Calcium Alginate AG 09/06/23 134 Secondary Dressing Sorbex 09/06/231348 Secured with Kerlex;Silk tape 09/06/231348 Compression Multilayer compression wrap - 3 layers;Unna boot 09/06/23 1349 Periwound Dressing Moisturizing lotion 08/30/23 0945 Dressing Status New dressing;Clean, dry & intact 09/06/23 1349 Wound/Incision 08/30/23 Skin Tear Calf Right (Active) Wound Image 09/06/23 1353 Site Assessment Dry;Pale;[place] 09/06/23 1353 Carine-Wound Assessment Dry 09/06/23 1353 Wound Length (cm) 0.6 cm 09/06/23 135 Wound Width (cm) 0.1 cm 09/06/23 135 Wound Surface Area (cm^2) 0.06 cm^2 09/06/23 135 Wound Depth (cm) 0.1 cm 09/06/23 135 Wound Volume (cm^3) 0.006 cm^3 09/06/23 135 Wound Healing % 82 09/06/23 135 Drainage Description Unable to assess 09/06/23 1353 Odor None 09/06/23 135 Drainage Amount None 09/06/23 1353 Treatments Cleansed 09/06/23 1353 Primary Dressing Collagen Ag;Calcium alginate 08/30/23 0950 Secondary Dressing 4x4 gauze 08/30/23 0950 Secured with Kerlex;Paper tape 08/30/23 0950 Compression Unna boot;Multilayer compression wrap - 3 layers 08/30/23 0950 Periwound Dressing Moisturizing lotion 08/30/23 0950 Dressing Status New dressing;Clean, dry & intact 08/30/23 0950 Debridement Wound/Incision 08/23/23 Venous Ulcer Toe- second Right Performed by: Julissa Taylor DO Authorized by: Julissa Taylor, DO Consent Consent obtained? verbal Consent given by: patient Risks discussed? procedural risks discussed Immediately prior to the procedure a time out was called and the performing provider verified the correct patient, procedure, equipment, cell support operator, and site/side marked as required. Debridement Details Performed by: physician Debridement type: surgical Level of debridement: subcutaneous tissue Pain control: lidocaine 2% Pain control administration type: topical Pre-debridement measurements Length (cm): 1.8 Width (cm): 2.5 Depth (cm): 0.2 Surface Area (cm^2): 4.5 Post-debridement measurements Length (cm): 1.8 Width (cm): 2.5 Depth (cm): 0.3 Percent debrided: 100% Surface Area (cm^2): 4.5 Area Debrided (cm^2): 4.5 Volume (cm^3): 1.35 Tissue and other material debrided: dermis, epidermis and subcutaneous tissue Devitalized tissue debrided: biofilm and slough Instrument(s) utilized: curette Bleeding: small Hemostasis obtained with: pressure Procedural pain (0-10): 1 Post-procedural pain: 0 Response to treatment: procedure was tolerated well Debridement Wound/Incision 08/23/23 Venous Ulcer Toe - third Right Performed by: Julissa Taylor DO Authorized by: Julissa Taylor, DO Consent Consent obtained? verbal Consent given by: patient Risks discussed? procedural risks discussed Immediately prior to the procedure a time out was called and the performing provider verified the correct patient, procedure, equipment, cell support operator, and site/side marked as required. Debridement Details Performed by: physician Debridement type: surgical Level of debridement: subcutaneous tissue Pain control: lidocaine 2% Pain control administration type: topical Pre-debridement measurements Length (cm): 0.9 Width (cm): 0.9 Depth (cm): 0.2 Surface Area (cm^2): 0.81 Post-debridement measurements Length (cm): 1 Width (cm): 1 Depth (cm): 0.3 Percent debrided: 100% Surface Area (cm^2): 1 Area Debrided (cm^2): 1 Volume (cm^3): 0.3 Tissue and other material debrided: dermis, epidermis and subcutaneous tissue Devitalized tissue debrided: biofilm and slough Instrument(s) utilized: curette Bleeding: small Hemostasis obtained with: pressure Procedural pain (0-10): 1 Post-procedural pain: 0 Response to treatment: procedure was tolerated well Debridement Wound/Incision 08/30/23 Skin Tear Calf Right Performed by: Julissa Taylor DO Authorized by: Julissa Taylor, DO Consent Consent obtained? verbal Consent given by: patient Risks discussed? procedural risks discussed Immediately prior to the procedure a time out was called and the performing provider verified the correct patient, procedure, equipment, cell support operator, and site/side marked as required. Debridement Details Performed by: physician Debridement type: surgical Level of debridement: subcutaneous tissue Pain control: lidocaine 2% Pain control administration type: topical Pre-debridement measurements Length (cm): 0.6 Width (cm): 0.1 Depth (cm): 0.1 Surface Area (cm^2): 0.06 Post-debridement measurements Length (cm): 0.6 Width (cm): 0.3 Depth (cm): 0.2 Percent debrided: 100% Surface Area (cm^2): 0.18 Area Debrided (cm^2): 0.18 Volume (cm^3): 0.04 Tissue and other material debrided: subcutaneous tissue Devitalized tissue debrided: biofilm and slough Instrument(s) utilized: curette Bleeding: small Hemostasis obtained with: pressure Procedural pain (0-10): 1 Post-procedural pain: 0 Response to treatment: procedure was tolerated well 1. 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 Lymphedema 3. Venous insufficiency (chronic) (peripheral) 4. Non-pressure chronic ulcer right lower leg, limited to breakdown skin (HCC) Pt ed, reassurance to pt and attendant, present for entire visit Collagen/alginate/hydralock/unna Profore lite to R lower leg Tubigrip to L lower leg Reviewed s/s infection Reviewed activity/compression/elevation Reviewed protein/nutrition Consider lymphedema pumps Recheck one wk, sooner prn Pt agrees with plan. PLAN: Patient examined and evaluated. Patient understands all that has been explained and wishes to proceed with current treatment. Patient understands all risks, benefits, procedures, carine-operative management, and possible complications. All questions answered and no guarantees made or implied. Treatment: Orders Placed This Encounter Procedures Wound Care OP Follow-up 1 week Dressing Order: Collagen Ag, Calcium alginate; Hydralock pads (multiple sizes); Kerlex; Unna boot, Multilayer compression wrap - 3 layers Order Specific Question: Primary Dressing Answer: Collagen Ag Order Specific Question: Primary Dressing Answer: Calcium alginate Order Specific Question: Secondary Dressing Answer: Hydralock pads (multiple sizes) Order Specific Question: Secured With Answer: Kerlex Order Specific Question: Compression Answer: Unna boot Order Specific Question: Compression Answer: Multilayer compression wrap - 3 layers Please see attached Discharge Instructions documented in this encounter [facility] 09-06-2023 Hospital Discharge instructions Bertha Gross RN - 09/06/2023 1:30 PM EDT Return Appointment in: 1 week - Should you experience any significant changes in your wound(s) or have any questions regarding your home care instructions please contact the wound center at [phone] If after regular business hours, please call your family doctor or local emergency room. Edema Control: Extremity Option: right lower leg Elevate legs to the level of the heart or above for 30 minutes daily and/or when sitting Right lower leg - Multilayer Compression Therapy- 3 layers: Do not get legs with compression wrap wet. If wraps seem too tight, elevate legs above level of heart for one hour. If no relief, call the wound center. , Unna Boot: Do not remove Unna Boot. Keep dry. If pain or swelling or discoloration of toes noted, elevate legs above level of heart for 1 hour. If no relief, call the center. If unable to reach center, remove boot and keep leg elevated until contact with center can be made. Left lower leg - Apply Single Layer Tubigrip - (on am/off pm) Additional Orders/Instructions: Follow diet per physicians instructions - such as increasing protein intake to promote wound healing. Please begin including a protein supplement/shake to patient's diet to help with wound healing Nursing Care Facility: [facility] Wound Treatment: Wound: right toes & lower leg Dressing Frequency: Keep dressing in place all week Wound Cleansing: May shower with protection - Protect wound and dressing with water repellant cover/cast cover (e.g., large plastic bag) which can be obtained at [facility] and may take shower. Primary Dressing: Collagen Ag 2x2 Secondary Dressing: Calcium Alginate 4x4 & hydralock Secure With: Kerlex Roll gauze 4, Silk Tape 1 Compression: Unna boot & multilayer compression wrap - 3 layers (cover toes) documented in this encounter [facility] 09-06-2023 Note [facility] Wound Care Progress Note CHIEF COMPLAINT: Wound Care HISTORY OF PRESENT ILLNESS: The patient is a 62 y.o. male arrives with wounds of R foot and R lower leg. History of venous insufficiency. Has had similar in past. Feels they are improving. Medications reviewed Medical history reviewed Allergies reviewed REVIEW OF SYSTEMS: Review of Systems Constitutional: Negative. Negative for chills, fatigue and fever. See HPI, PMH, PSH Respiratory: Negative. Cardiovascular: Negative. Skin: Positive for wound. Negative for color change (from typical for patient) and rash. PHYSICAL EXAM: BP 119/80 Pulse 57 Temp 36.4 ?C (97.6 ?F) Ht 5' 10 (1.778 m) Wt 253 lb (115 kg) BMI 36.30 kg/m? Physical Exam Vitals reviewed. Constitutional: General: He is not in acute distress. Appearance: Normal appearance. He is not ill-appearing or toxic-appearing. HENT: Ears: Comments: Hearing to conversational voice is normal. Pulmonary: Effort: Pulmonary effort is normal. Breath sounds: No wheezing (No audible wheeze). Skin: General: Skin is warm and dry. Comments: Wounds of R lower leg, shallow. Clean periwounds. No evidence of cellulitis. Foot wounds on dorsum. Fat level. Do not appear cellulitic. See photos and measurements. Neurological: Mental Status: He is alert and oriented to person, place, and time. Psychiatric: Thought Content: Thought content normal. Wound/Incision 08/23/23 Venous Ulcer Toe- second Right (Active) Wound Image 09/06/23 135 Site Assessment [place];Pale;Sloughing 09/06/23 135 [place]-Wound Assessment Moist 09/06/231355 Wound Length (cm) 1.8 cm 09/06/23 135 Wound Width (cm) 2.5 cm 09/06/23 135 Wound Surface Area (cm^2) 4.5 cm^2 09/06/23 135 Wound Depth (cm) 0.2 cm 09/06/231355 Wound Volume (cm^3) 0.9 cm^3 09/06/23 135 Wound Healing % -125 09/06/23 135 Drainage Description Serosanguineous;Yellow 09/06/23 135 Odor Mild 09/06/231355 Drainage Amount Moderate 05/29/24 1356 Treatments Cleansed 09/06/23 135 Primary Dressing Calcium alginate;Collagen Ag 09/06/23 135 Secondary Dressing 4x4 gauze;Sorbex 09/06/23 135 Secured with Kerlex;Paper tape 09/06/23 135 Compression Multilayer compression wrap - 3 layers;Unna boot 09/06/231355 Dressing Status New dressing;Clean, dry & intact 09/06/23 1356 Wound/Incision 08/23/23 Venous Ulcer Toe - third Right (Active) Wound Image 09/06/23 135 Site Assessment Pale;[place];Sloughing 09/06/231353 Carine-Wound Assessment Moist 09/06/231353 Wound Length (cm) 0.9 cm 09/06/231353 Wound Width (cm) 0.9 cm 09/06/231353 Wound Surface Area (cm^2) 0.81 cm^2 09/06/231353 Wound Depth (cm) 0.2 cm 09/06/231353 Wound Volume (cm^3) 0.162 cm^3 09/06/231353 Wound Healing % -29 09/06/231353 Drainage Description Serosanguineous;Yellow 09/06/23 1354 Odor Mild 09/06/231353 Drainage Amount Moderate 09/06/231353 Treatments Cleansed 09/06/23 135 Primary Dressing Calcium alginate;Collagen Ag 09/06/23 135 Secondary Dressing 4x4 gauze;Sorbex 09/06/23 135 Secured with Kerlex;Silk tape 09/06/231353 Compression Multilayer compression wrap - 3 layers;Unna boot 09/06/23 135 Dressing Status New dressing;Clean, dry & intact 09/06/23 1354 Wound/Incision 08/23/23 Venous Ulcer Leg Right;Circumferential (Active) Wound Image 09/06/23 134 Site Assessment Pale;Red 09/06/231348 Carine-Wound Assessment Pale;[place] 09/06/231348 Wound Length (cm) 1.8 cm 09/06/231348 Wound Width (cm) 1.2 cm 09/06/231348 Wound Surface Area (cm^2) 2.16 cm^2 09/06/23 134 Wound Depth (cm) 0.1 cm 05/29/24 1349 Wound Volume (cm^3) 0.216 cm^3 09/06/23 1349 Wound Healing % 98 09/06/23 1349 Drainage Description Serosanguineous 09/06/23 1349 Odor None 09/06/23 1349 Drainage Amount Small 09/06/23 1349 Treatments Cleansed 09/06/23 1349 Primary Dressing Calcium Alginate AG 09/06/23 1349 Secondary Dressing Sorbex 09/06/23 1349 Secured with Kerlex;Silk tape 09/06/23 134 Compression Multilayer compression wrap - 3 layers;Unna boot 09/06/23 1349 Periwound Dressing Moisturizing lotion 08/30/23 0945 Dressing Status New dressing;Clean, dry & intact 09/06/23 134 Wound/Incision 08/30/23 Skin Tear Calf Right (Active) Wound Image 09/06/23 135 Site Assessment Dry;[place]ale;[place] 09/06/23 135 Carine-Wound Assessment Dry 09/06/231352 Wound Length (cm) 0.6 cm 09/06/23 135 Wound Width (cm) 0.1 cm 09/06/231352 Wound Surface Area (cm^2) 0.06 cm^2 09/06/23 135 Wound Depth (cm) 0.1 cm 09/06/231352 Wound Volume (cm^3) 0.006 cm^3 09/06/23 135 Wound Healing % 82 09/06/23 1353 Drainage Description Unable to assess 09/06/23 1353 Odor None 09/06/23 1353 Drainage Amount None 09/06/23 1353 Treatments Cleansed 09/06/23 1353 Primary Dressing Collagen Ag;Calcium alginate 08/30/23 0950 Secondary Dressing 4x4 gauze 08/30/23 0950 Secured with Kerlex;Paper tape 08/30/23 0950 Compression Unna boot;Multil (more content not included)... [facility] 08-30-2023 History of Present illness Narrative Associated Order(s): Debridement Post-Procedure Diagnose(s): Venous insufficiency (chronic) (peripheral); Non-pressure chronic ulcer right lower leg, limited to breakdown skin (HCC) Images from the original note were not included. [facility] Wound Care Progress Note CHIEF COMPLAINT: Wound Care HISTORY OF PRESENT ILLNESS: The patient is a 62 y.o. male arrives with wounds of R foot and R lower leg. History of venous insufficiency. Has had similar in past. Medications reviewed Medical history reviewed Allergies reviewed REVIEW OF SYSTEMS: Review of Systems Constitutional: Negative. Negative for chills, fatigue and fever. See HPI, PMH, PSH Respiratory: Negative. Cardiovascular: Negative. Skin: Positive for wound. Negative for color change (from typical for patient) and rash. PHYSICAL EXAM: BP 126/86 Pulse 79 Temp 36.3 C (97.4 F) Ht 5' 10 (1.778 m) Wt 253 lb (115 kg) BMI 36.30 kg/m Physical Exam Vitals reviewed. Constitutional: General: He is not in acute distress. Appearance: Normal appearance. He is not ill-appearing or toxic-appearing. HENT: Ears: Comments: Hearing to conversational voice is normal. Pulmonary: Effort: Pulmonary effort is normal. Breath sounds: No wheezing (No audible wheeze). Skin: General: Skin is warm and dry. Comments: Wounds of R lower leg, shallow. Clean periwounds. No evidence of cellulitis. Foot wounds on dorsum. Fat lever. Do not appear cellulitic. See photos and measurements. Neurological: Mental Status: He is alert and oriented to person, place, and time. Psychiatric: Thought Content: Thought content normal. Wound/Incision 08/23/23 Venous Ulcer Toe- second Right (Active) Wound Image 08/30/23942 Site Assessment Pale;[place];Sloughing 08/30/23942 Carine-Wound Assessment Moist 08/30/2343 Wound Length (cm) 1.3 cm 08/30/2343 Wound Width (cm) 2.5 cm 08/30/2343 Wound Surface Area (cm^2) 3.25 cm^2 08/30/23942 Wound Depth (cm) 0.1 cm 08/30/23942 Wound Volume (cm^3) 0.325 cm^3 08/30/23942 Wound Healing % 19 08/30/23942 Drainage Description Serosanguineous 08/30/23942 Odor Mild 08/30/23942 Drainage Amount Small 08/30/23942 Treatments Cleansed 08/30/23942 Primary Dressing Calcium alginate;Collagen Ag 08/30/23942 Secondary Dressing 4x4 gauze 08/30/23942 Secured with Kerlex;Paper tape 08/30/23942 Dressing Status New dressing;Clean, dry & intact 08/30/23942 Wound/Incision 08/23/23 Venous Ulcer Toe - third Right (Active) Wound Image 08/30/23939 Site Assessment Pale;[place];Sloughing 08/30/23939 Carine-Wound Assessment Moist 08/30/23939 Wound Length (cm) 1 cm 08/30/23939 Wound Width (cm) 0.5 cm 08/30/23939 Wound Surface Area (cm^2) 0.5 cm^2 08/30/23939 Wound Depth (cm) 0.2 cm 08/30/23939 Wound Volume (cm^3) 0.1 cm^3 08/30/23939 Wound Healing % 21 08/30/23939 Drainage Description Serosanguineous 08/30/23939 Odor Mild 08/30/23939 Drainage Amount Small 08/30/23939 Treatments Cleansed 08/30/23939 Primary Dressing Calcium alginate;Collagen Ag 08/30/23939 Secondary Dressing 4x4 gauze 08/30/23939 Secured with Kerlex;Paper tape 08/30/23939 Dressing Status New dressing;Clean, dry & intact 08/30/23939 Wound/Incision 08/23/23 Venous Ulcer Leg Right;Circumferential (Active) Wound Image 08/30/23944 Site Assessment [place];Red 08/30/23944 Carine-Wound Assessment Dry 08/30/23944 Wound Length (cm) 2.5 cm 08/30/23944 Wound Width (cm) 1.5 cm 08/30/23944 Wound Surface Area (cm^2) 3.75 cm^2 08/30/23944 Wound Depth (cm) 0.1 cm 08/30/23944 Wound Volume (cm^3) 0.375 cm^3 08/30/23944 Wound Healing % 97 08/30/23944 Drainage Description Serosanguineous 08/30/23944 Odor None 08/30/23944 Drainage Amount Small 05/22/24 0945 Treatments Cleansed 08/30/23 0945 Primary Dressing Calcium alginate;Collagen Ag 08/30/23 0945 Secondary Dressing 4x4 gauze 08/30/23 0945 Secured with Kerlex;Paper tape 08/30/23 0945 Compression Multilayer compression wrap - 3 layers;Unna boot 08/30/23 0945 Periwound Dressing Moisturizing lotion 08/30/23 0945 Dressing Status New dressing;Clean, dry & intact 08/30/23 0945 Wound/Incision 08/30/23 Pretibial Proximal;Right (Active) Wound/Incision 08/30/23 Skin Tear Calf Anterior;Proximal;Right (Active) Wound Image 08/30/23 0950 Site Assessment Red 08/30/23 0950 Carine-Wound Assessment Bleeding 08/30/23 0950 Wound Length (cm) 1.7 cm 08/30/23 0950 Wound Width (cm) 0.2 cm 08/30/23 0950 Wound Surface Area (cm^2) 0.34 cm^2 08/30/23 0950 Wound Depth (cm) 0.1 cm 08/30/23 0950 Wound Volume (cm^3) 0.034 cm^3 08/30/23 0950 Drainage Description Red 08/30/23 0950 Odor None 08/30/23 0950 Drainage Amount Scant 08/30/23 0950 Treatments Cleansed 08/30/23 0950 Primary Dressing Collagen Ag;Calcium alginate 08/30/23 0950 Secondary Dressing 4x4 gauze 08/30/23 0950 Secured with Kerlex;Paper tape 08/30/23 0950 Compression Unna boot;Multilayer compression wrap - 3 layers 08/30/23 0950 Periwound Dressing Moisturizing lotion 08/30/23 0950 Dressing Status New dressing;Clean, dry & intact 08/30/23 0950 Debridement Wound/Incision 08/23/23 Venous Ulcer Leg Right;Circumferential Performed by: Julissa Taylor DO Authorized by: Julissa Taylor, DO Consent Consent obtained? verbal Consent given by: patient Risks discussed? procedural risks discussed Immediately prior to the procedure a time out was called and the performing provider verified the correct patient, procedure, equipment, cell support operator, and site/side marked as required. Debridement Details Performed by: physician Debridement type: surgical Level of debridement: subcutaneous tissue Pain control: lidocaine 2% Pain control administration type: topical Pre-debridement measurements Length (cm): 2.5 Width (cm): 1.5 Depth (cm): 0.1 Surface Area (cm^2): 3.75 Post-debridement measurements Length (cm): 2.5 Width (cm): 2 Depth (cm): 0.2 Percent debrided: 100% Surface Area (cm^2): 5 Area Debrided (cm^2): 5 Volume (cm^3): 1 Tissue and other material debrided: dermis, epidermis and subcutaneous tissue Devitalized tissue debrided: biofilm and slough Instrument(s) utilized: curette Bleeding: small Hemostasis obtained with: pressure Procedural pain (0-10): 1 Post-procedural pain: 0 Response to treatment: procedure was tolerated well 1. Venous insufficiency (chronic) (peripheral) 2. Lymphedema 3. 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 Decreased mobility Pt ed, reassurance to pt and attendant, present for entire visit Collagen/alginate/hydralock/unna Profore lite to R lower leg Tubigrip to L lower leg Reviewed s/s infection Reviewed activity/compression/elevation Reviewed protein/nutrition Consider lymphedema pumps Recheck one wk, sooner prn Pt agrees with plan. PLAN: Patient examined and evaluated. Patient understands all that has been explained and wishes to proceed with current treatment. Patient understands all risks, benefits, procedures, carine-operative management, and possible complications. All questions answered and no guarantees made or implied. Treatment: Orders Placed This Encounter Procedures Dressing Order: Collagen Ag, Calcium alginate; Weekly; 4x4 gauze; Kerlex, Silk tape; Multilayer compression wrap - 3 layers, Unna boot Cover toes Order Specific Question: Primary Dressing Answer: Collagen Ag Order Specific Question: Primary Dressing Answer: Calcium alginate Order Specific Question: Dressing Frequency Answer: Weekly Order Specific Question: Secondary Dressing Answer: 4x4 gauze Order Specific Question: Secured With Answer: Kerlex Order Specific Question: Secured With Answer: Silk tape Order Specific Question: Compression Answer: Multilayer compression wrap - 3 layers Order Specific Question: Compression Answer: Unna boot Please see attached Discharge Instructions documented in this encounter [facility] 08-30-2023 History of Present illness Narrative Associated Order(s): Debridement Post-Procedure Diagnose(s): Venous insufficiency (chronic) (peripheral); Non-pressure chronic ulcer right lower leg, limited to breakdown skin (HCC) Images from the original note were not included. [facility] Wound Care Progress Note CHIEF COMPLAINT: Wound Care HISTORY OF PRESENT ILLNESS: The patient is a 62 y.o. male arrives with wounds of R foot and R lower leg. History of venous insufficiency. Has had similar in past. Medications reviewed Medical history reviewed Allergies reviewed REVIEW OF SYSTEMS: Review of Systems Constitutional: Negative. Negative for chills, fatigue and fever. See HPI, PMH, PSH Respiratory: Negative. Cardiovascular: Negative. Skin: Positive for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 panel - Creatinine, Serum; Future - CT abdomen pelvis w contrast; Future - Creatinine, Serum Peripancreatic abscess - Amylase; Future - Lipase; Future - Hepatic function panel; Future - Amylase - Lipase - Hepatic function panel - Creatinine, Serum; Future - CT abdomen pelvis w contrast; Future - Creatinine, Serum History of traumatic brain injury Epigastric pain 61-year-old male who presents today with a history of peripancreatic abscess, pancreatitis and gallstones. He presents today with his caregiver. His brother is his power of tutoring clinician and he was not present today. I will repeat LFTs and lipase and also repeat a CT scan 3 months after his abscess, sometime in September 2022. Once I see the inflammatory changes resolved we will proceed with scheduling cholecystectomy to mitigate any potential recurrent pancreatitis or pancreatic abscess due to the biliary system. All of his questions were answered to his satisfaction and visual aids were used to describe the procedure. I will reach out to his POA to make sure they are aware of the procedure and obtained informed consent. I personally performed the evaluation and management of Moises Madrid in the development of a treatment plan for this patient. I personally interviewed the patient and performed an individual physical examination. In addition, I discussed the patient's condition and treatment options with them. I have also reviewed and agree with the past medical, family and social history unless otherwise noted. All of the patient's questions were answered. I discussed/counseled the patient regarding the risks and benefits of surgery as well as the preoperative and postoperative care plan for this patient.The patient was seen and examined independently and relevant data reviewed by myself. A full chart review was performed. Patient Care Team: Demetrius Fenton as PCP - General (Internal Medicine) Tried to call pt and couldn't lvm, offering 11/02 @ 7:30am w arrival time of 5:30 for surgery, if he calls back please confirm this date/time is okay CT ABD PEL is scheduled for: Date: 10/26/2022 Time: 2:15 pm Location: [place] Information will be relayed to [facility] and to Kash his guardian. Orders in EPIC. Auth pending Yes Kash will also be contacted Spoke with Cayden from the [facility] and she stated that the 02 of November would be ok for surgery. Would like a call back to discuss further details. Surgery scheduled for 11/02/2022, all dates/times including CT relayed to blake from [facility] emergency department and his brother kash. documented in this encounter [facility] 07-28-2022 Telephone encounter Note Patient has been scheduled [facility] 07-28-2022 Miscellaneous Notes Patient has been scheduled Called and spoke to Cayden. She is going to see about transportation and call me back Called and spoke to Nela at [facility] to see if patient had transportation due to Dr Musa does have an opening this Monday07/29/2022 at 12 pm Referral received. Will give to Dr Musa for approval and schedule patient Cayden from [facility] calling said she is re faxing Referral over and would like to get an appointment for him. lvm Noted will call Cayden from the [facility] emergency department at [facility] regarding a referral that was sent over yesterday for a gall bladder. Please call her to schedule. documented in this encounter [facility] 07-28-2022 Telephone encounter Note Called and spoke to Cayedn. She is going to see about transportation and call me back [facility] 07-27-2022 Telephone encounter Note Called and spoke to Nela at [facility] to see if patient had transportation due to Dr Musa does have an opening this Monday07/29/2022 at 12 pm [facility] 07-27-2022 Telephone encounter Note Referral received. Will give to Dr Musa for approval and schedule patient [facility] 07-26-2022 Telephone encounter Note Cayden from [facility] calling said she is re faxing Referral over and would like to get an appointment for him. [facility] 07-20-2022 Telephone encounter Note lvm [facility] 07-18-2022 Telephone encounter Note Noted will call [facility] 07-15-2022 Telephone encounter Note Cayden from the [facility] emergency department at [facility] regarding a referral that was sent over yesterday for a gall bladder. Please call her to schedule. [facility] 06-23-2022 History of Present illness Narrative .. [facility] Progress Note Subjective/ 61 y.o. year old male who we are seeing in consultation for Hyponatremia. NAEON Feels better No more nausea Appetite better per RN No other new issues at this time ROS done and negative unless mentioned as above No change in PFSH All data labs/interval notes and overnight issues are reviewed Objective/ Vitals: 06/23/22 0856 06/23/22 1150 06/23/22 1203 06/23/22 1305 BP: (!) 130/104 (!) 151/93 (!) 127/95 BP Location: Patient Position: Lying Lying Pulse: 96 99 97 Resp: Temp: 36.4 C (97.6 F) 37.2 C (98.9 F) TempSrc: Oral Oral SpO2: 95% 94% 95% Weight: Height: 1.88 m (6' 2.02) Intake/Output Summary (Last 24 hours) at 06/23/2022 1457 Last data filed at 06/23/2022 0858 Gross per 24 hour Intake 200 ml Output 1250 ml Net -1050 ml ARIPiprazole, 5 mg, Oral, Daily aspirin, 81 mg, Oral, Daily divalproex sprinkle, 250 mg, Oral, 2 times per day enoxaparin, 40 mg, SubCUTAneous, Daily guaiFENesin, 600 mg, Oral, BID influenza vaccine split quadravalent, 0.5 mL, IntraMUSCular, Once melatonin, 10 mg, Oral, Nightly memantine, 10 mg, Oral, BID metoprolol tartrate, 25 mg, Oral, BID miconazole, , Topical, BID senna-docusate sodium, 2 tablet, Oral, Daily venlafaxine, 75 mg, Oral, BID PRN medications: acetaminophen OR acetaminophen, bisacodyl, dextrose, dextrose, glucagon (rDNA), glucose, ipratropium-albuterol, lidocaine, melatonin, naloxone, nitroglycerin, ondansetron ODT OR ondansetron, polyethylene glycol (PEG) 3350, stomahesive in petrolatum Constitutional: awake, alert, no apparent distress Eyes: No icterus, no pallor HEENT: no pallor/cyanosis or icterus Cardiovascular: tachycardia+, S1, S2 without m/r/g Respiratory: cta b/l GI: +bs, soft, nt Ext: No LE edema Neck: supple, no thyroid enlargement, no JVD elevation Skin: warm, moist, no rashes Results from last 7 days Lab Units 06/23/22 0604 06/22/22 0426 06/21/22 0513 SODIUM mmol/L 131* 129* 126* POTASSIUM mmol/L 3.6 3.8 4.0 CHLORIDE mmol/L 100 96* 93* CO2 mmol/L 32* 32* 33* BUN mg/dL 17 17 19 CREATININE mg/dL 0.70 0.66 0.74 GLUCOSE mg/dL 169* 204* 252* CALCIUM mg/dL 8.3* 8.0* 8.0* Results from last 7 days Lab Units 06/22/22 0426 06/21/22 0513 06/20/22 0616 WBC AUTO 10*3/uL 13.0* 16.2* 17.8* HEMOGLOBIN g/dL 12.1* 12.4* 13.2 HEMATOCRIT % 34.7* 36.1* 38.9* PLATELETS AUTO 10*3/uL 377 401 389 Assessment/Plan Acute hyponatremia likely 2/2 excess ADH (valproic acid, venlafaxine, narcotics ) versus poor p.o. solute intake Acute hyperglycemia 3. Acute hypoxic respiratory insufficiency 4. Acute pancreatitis 5. Right foot wounds 6. HTN, essential Plan: -Na levels acceptable, is 131 -Sodium levels stable off of NaCl and torsemide -Hyperglycemia improving, A1c is 6.9 -Metabolic alkalosis is improving -On mildly thick nectar low-fat diet -C/w fluid restriction: 1.2L -Encourage 3 meals a day high in protein and ensure supplements ordered -Strict I&O -All other management defer to primary -Ok for discharge planning from renal standpoint for Na >130 -We will follow closely with you Zeynep Wyatt APRN, ADVANCED REGISTERED NURSE [facility] [phone] office I have reviewed the above assessment and plan with the VAMP MAKER. I agree with above note. Na levels acceptable. Nutrition Assessment Type and Reason for Visit: Reassess Nutrition Recommendations/Plan: Recommend continue Minced and Moist diet with Mildly thick liquids per CAM SPECIALIST recommendations. Pt mostly consuming 51-75% of meals, reports improvement with diet advancement. Per MNT protocol and pt request, will change flavor of magic cup to vanilla and continue to send Pro-stat. Noted pt's HgbA1c 6.9. Will defer to MD whether pt's diet should include CHO restriction. Noted potential plans for DC soon. DM diet education not appropriate as [facility]. Monitor weight, labs, I/Os, skin integrity and overall nutrition status. RD to follow up weekly. Malnutrition Assessment: Malnutrition Status: At risk for malnutrition (Comment) (At risk d/t dysphagia. Pt's intake improving with diet advancement. Weight stable.) Context: Acute Illness Findings of the 6 clinical characteristics of malnutrition: Energy Intake: Mild decrease in energy intake (Comment) (Pt's intake has improved this admission, mostly consuming 51-75% of meals. Pt reports liking the minced and moist diet better than the pureed diet.) Weight Loss: No significant weight loss (Pt's admit weight was 253# and his CBW is 248# = 2% x 2 weeks. However pt also had drain placed this admission with negative I/O) Body Fat Loss: No significant body fat loss Muscle Mass Loss: No significant muscle mass loss Fluid Accumulation: Mild Extremities, Generalized Director Of Engineering Strength: Not Performed Nutrition Assessment: 61yo male with PMHx TBI, hemiplegia, HTN, HLD,obesity, BPH admitted on 06/07/22 for acute chest pain, EDWARDO and acute pulmonary vascular congestion. Pt with acute pancreatitis with peripancreatic abscess s/p percutaneous drain (06/10). Pt developed hypoxia and chest x-ray shows questionable right retro- cardiac opacity--PNA? Diagnosed with sepsis and patient received 8 days of abx and ID discontinued current regimen on 06/17. Chest x-ray 06/16 consistent with pulmonary vascular congestion and volume overload. Started on IV Lasix with nephrology consulted in the setting of hyponatremia. Underwent MBS on 06/17 consistent with decreased bolus formation with spillage to floor of mouth and to vallecula prior to swallow; advised puree diet and mildly thick liquids. Nephrology added salt tabs for hyponatremia which were discontinued 06/21. Wound care following. Pt's diet advanced to minced and moist 06/22 per CAM SPECIALIST, remains with nectar thick liquids. ID and surgery signed off, per Nephrology, pt's sodium has to be 130 to discharge. Pt's Na today 131. Of note, pt with elevateed BG this admit, HgbA1c 6.9 on 06/22/22. RD visited pt this afternoon. Pt states he is eating 'pretty good' and he likes the minced and moist diet better than the pureed diet. Pt reports he ate too much egg salad (2 bowls) for lunch and now his stomach hurts. Pt requested to change magic cup flavor to vanilla. Still agreeable to receive Pro-stat at lunch. Pt with adequate intake per flowsheet documentation (mostly 51-75% of meals). Estimated Daily Nutrient Needs: Energy Requirements Based On: Kcal/kg Weight Used for Energy Requirements: [place] Weight for Energy Calculation (kg): 86 kg Total Energy Requirements (kcals/day): 25--30 or 7487-2425 Weight Used for Protein Requirements: [place] Weight in Kg Used for Protein Requirements: 86 kg Estimated Total Protein (g/day): 1.0-1.2 or 86-103 Estimated Daily Total Fluid (ml/day): or per md Nutrition Related Findings: Jennie = 17, GI = last bm 06/22, edema = +1 generalized, trace BUE, non-pitting BLE, Labs: Na 131, BG 252/204/169, HgbA1c 6.9 (06/22/22), Meds reviewed. Wound Type: Moisture Associate Skin Damage, Pressure Injury, Multiple, Stage II, Unstageable (Stage 2 PI to R toes; DTI buttock, Unstageable PIs to L buttock and perineum) Current Nutrition Therapies: Adult diet Dysphagia - Minced and Moist; Mildly Thick (Romney) Current Oral Intake Average Meal Intake: 26-50%, 51-75%, 76-100% Average Supplements Intake: 76-100% Anthropometric Measures: Height: 188 cm (6' 2.02) Current Body Weight: 113 kg (249 lb 1.9 oz) (06/22 no source) Weight Source: Bed Scale Admission Body Weight: 114 kg (251 lb 5.2 oz) (06/07 stated) Usual Body Weight: 112 kg (248 lb) (No weight hx per chart. Last weight is from 03/2019 248#) % Weight Change (Calculated): 0.5 [place] Body Weight (lbs) (Calculated): 190 lbs [place] Body Weight (Kg) (Calculated): 86 kg % [place] Body Weight (Calculated): 131.1 % BMI (kg/m2) (Calculated): 32 BMI Categories: Obese Class 1 (BMI 30.0-34.9) Nutrition Interventions: Nutrition Education/Counseling: Education not appropriate (Pt not appropriate for DM diet education, he resides at a [facility]) Coordination of Nutrition Care: Continue to monitor while inpatient Plan of Care discussed with: pt,RN Goals: Previous Goal Met: Progressing toward Goal(s) Goals: PO intake 75% or greater, prior to discharge Nutrition Monitoring and Evaluation: Behavioral-Environmental Outcomes: None Identified Food/Nutrient Intake Outcomes: Food and Nutrient Intake, Supplement Intake, Diet Advancement/Tolerance Physical Signs/Symptoms Outcomes: Biochemical Data, Nutrition Focused Physical Findings, Skin, Weight, Chewing or Swallowing, GI Status, Fluid Status or Edema, Meal Time Behavior Discharge Planning: Continue Oral Nutrition Supplement, Continue current diet Brandi Ferreira RD Contact: *[phone] Cardiology Progress Note Patient Name: Moises Madrid Patient Age: 61 y.o. Date: 06/23/2022 Alert, comfortable stable SUBJECTIVE: pt. In isolation Sob.c/o abd. Pain. No cp. PANCREATITIS. CHOLECYSTITIS. RENAL STONE, Stress . >> nl.. ef=65 % Leucocytosis.>>20. Blood tdgit=428 mg. Gi consult reviewed. More alert. No cp.pulse ox=96. VITALS BP (!) 130/104 (Patient Position: Lying) Pulse 96 Temp 36.4 C (97.6 F) (Oral) Resp 19 Ht 6' 2 (1.88 m) Wt 248 lb 0.3 oz (113 kg) SpO2 95% BMI 31.84 kg/m I&O Feels better No more nausea Eager for discharge OBJECTIVE: 10 systems reviewed as seen below Neck: Neck JVP 0, No carotid bruits, thyroid not enlarged Cardiovascular system: NSR, Short systolic murmur, no gallop Chest: normal breath sounds Abdomen: Abdomen soft/non-tender, no organomegaly, bowel sounds present Extremities: No edema, no varicosity Endocrine : Hypothyroidism No Diabites yes GI system : GIB No Renal : CKD No TUBE BENDER HAND : CVA/TIA No Musculoskeletal system : DJD No LAB Lab Results Component Value Date NA 131 (L) 06/23/2022 K 3.6 06/23/2022 CL 100 06/23/2022 CO2 32 (H) 06/23/2022 BUN 17 06/23/2022 CREATININE 0.70 06/23/2022 GLUCOSE 169 (H) 06/23/2022 CALCIUM 8.3 (L) 06/23/2022 Lab Results Component Value Date WBC 13.0 (H) 06/22/2022 HGB 12.1 (L) 06/22/2022 HCT 34.7 (L) 06/22/2022 MCV 89.3 06/22/2022 PLT 377 06/22/2022 Lab Results Component Value Date TROPONINI <0.012 06/08/2022 Lab Results Component Value Date TSH 3.216 06/07/2022 No components found for: LABA1C No components found for: EAG Recent Labs 06/22/22 0426 06/23/22 0604 ALKPHOS 72 80 ALT 27 29 AST 58* 37 BILITOT 0.6 0.4 LIPASE 1,218* -- Lab Results Component Value Date BNP 49 06/07/2022 CARDIAC TESTING EKG: Encounter Date: 06/07/22 ECG 12 lead Result Value Heart Rate 111 QRSD Interval 94 QT Interval 352 QTC Interval 479 P [place] 43 QRS [place] -36 T Wave [place] 60 OH Interval 160 Impression SINUS TACHYCARDIA LEFT AXIS DEVIATION LATE PRECORDIAL R/S TRANSITION LEFT VENTRICULAR HYPERTROPHY Electronically Signed On 06-10-2022 9:55:05 EST by Dimple Wade Echo: No echocardiogram results found for the past 14 days Troponin: Stress Test: Cardiac Cath: IMPRESSION : chest infilterate.>>possible pne./ hypoxia. Abd. Pain. 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 CHOLECYSTITIS, RENAL STONE, HYPONATREMIA, NA-=129. > RESTRICT FLUIDS. Nx=076. Cr0.88/22. na >>low= 126. NSR. STABLE. SLOWLY IMPROVING. LESS ABD. PAIN. TOLERATING FOOD. PLAN : Chest pain>>>Stress test normal., ef=65 %NO CP TODAY, CP DUE TO PANCREATITIS. Noncardiac cp. CARDIAC STATUS IS STABLE. Essential hypertension, benign>>>Meds Hyperlipidemia>>Meds>>Meds Troponin=0.012. ekg no change, Dr. Dickerson and advise changing Zosyn to Ertapenem therapy on 06/14. However, patient vital signs change becoming more tachycardic, tachypneic and febrile lu=816.>>111. BP= 143/85 MMHG. Ef=65 %. Pt/ot.DIET. UP IN CHAIR. SHELTON HERMAN M.D., FACC 06/23/2022 Images from the original note were not included. Hospitalist Progress Note 06/22/[id number]: Please page me ([phone]) for patient care issues. [phone]: Please page [facility] Hospitalist for any issues. Subjective: Admit Date: 06/07/2022 PCP: Demetrius Fenton Room#: 232-06/232-06 A Interval History: No overnight issues. Denies chest pain, sob, abdominal pain, nausea, vomiting, diarrhea, constipation, fevers, or chills. Adult diet Dysphagia - Minced and Moist; Mildly Thick (Romney) @[id number]@ 24HR INTAKE/OUTPUT: Intake/Output Summary (Last 24 hours) at 06/22/2022 1506 Last data filed at 06/22/2022 1200 Gross per 24 hour Intake 75 ml Output 2275 ml Net -2200 ml Past Medical History: Past Medical History: Diagnosis Date Anxiety Ataxia Bipolar disorder ([facility]) Chronic pain Constipation Contracture, right hand Depression Dysphagia Dysphagia Dysphonia Edema GERD (gastroesophageal reflux disease) Headache Hemiplegia (CMS/HCC) ([facility]) Hyperlipidemia Hypertension Insomnia Muscle weakness Neuropathy TBI (traumatic brain injury) LABS: CBC: Recent Labs 06/20/22 0616 06/21/22 0513 06/22/22 0426 WBC 17.8* 16.2* 13.0* RBC 4.33* 4.02* 3.89* HGB 13.2 12.4* 12.1* HCT 38.9* 36.1* 34.7* MCV 90.0 89.8 89.3 RDW 13.7 13.8 13.9 PLT 389 401 377 BMP: Recent Labs 06/20/22 0616 06/21/22 0513 06/22/22 0426 NA 126* 126* 129* K 3.8 4.0 3.8 CL 90* 93* 96* CO2 33* 33* 32* BUN 22* 19 17 CREATININE 0.81 0.74 0.66 GLUCOSE 241* 252* 204* CALCIUM 8.2* 8.0* 8.0* ANIONGAP 3 0* 1* LIVER PROFILE: Recent Labs 06/20/22 0616 06/21/22 0513 06/22/22 0426 AST 43 56* 58* ALT 37 30 27 BILITOT 0.6 0.7 0.6 ALKPHOS 97 78 72 PROT 6.7 6.5 6.1* PT/INR: No results for input(s): PROTIME, INR in the last 72 hours. CARDIAC ENZYMES: No results for input(s): TROPONINI in the last 72 hours. Procalcitonin: No results found for: PROCAL COVID-19 PCR: No results for input(s): COVID19 in the last 72 hours. Objective: Vitals: BP (!) 135/91 Pulse 100 Temp 36.8 C (98.3 F) Resp 22 Ht 6' 2 (1.88 m) Wt 248 lb 0.3 oz (113 kg) SpO2 95% BMI 31.84 kg/m Pulse Ox: SpO2 Av.3 % Min: 92 % Max: 95 % Supplemental O2: O2 Flow Rate (L/min): (S) 0 L/min (room air) General appearance: No apparent distress, appears stated age and cooperative with exam HEENT: Normal cephalic, atraumatic without obvious deformity. Extra ocular muscles intact. Conjunctivae/corneas clear, no scleral icterus Neck: Full range of motion, trachea midline Respiratory: Normal respiratory effort. Clear to auscultation, bilaterally without Rales/Wheezes/Rhonchi. Cardiovascular: Regular rate and rhythm with normal S1/S2 without murmurs, rubs or gallops. Abdomen: Soft, non-tender, non-distended with normal bowel sounds. No rebound or guarding. Musculoskeletal: No clubbing, cyanosis or edema bilaterally. Full range of motion without obvious deformities Skin: Skin color, texture, turgor normal. No rashes or lesions (does have right foot wound). Medications: ARIPiprazole, 5 mg, Oral, Daily aspirin, 81 mg, Oral, Daily divalproex sprinkle, 250 mg, Oral, 2 times per day enoxaparin, 40 mg, SubCUTAneous, Daily guaiFENesin, 600 mg, Oral, BID influenza vaccine split quadravalent, 0.5 mL, IntraMUSCular, Once melatonin, 10 mg, Oral, Nightly memantine, 10 mg, Oral, BID miconazole, , Topical, BID senna-docusate sodium, 2 tablet, Oral, Daily venlafaxine, 75 mg, Oral, BID Assessment # SIRS # Acute pancreatitis with peripancreatic abscess s/p percutaneous drain (06/10) - currently watching off antibx per recommendations of ID. ID has signed off. Perc drain removed at bedside per surgery on 06/21. No further surgical planning, general surgery signed off and states oay for discharge from surgical perspective. Lipase trending down. # Acute hypoxic respiratory insufficiency 2/2 coronavirus and pulmonary vascular congestion - resolved and now on RA. # Dysphagia - CAM SPECIALIST following. Recommended Minced and Moist (Dysphagia II), Liquid Consistency Mildly Thick (Romney) # Coronavirus positive - per ID, No evidence of active infection - the covid test done yesterday in [place] of a positive coronavirus on Resp PCR screen was NEGATIVE # Acute hyponatremia - nephrology managing, states okay for discharge once sodium above 130. # EDWARDO - resolved # Right foot wounds - no active infection. Wound care following. # Hyperkalemia-resolved # Chronic HTN # HLD # Hx of TBI, stroke and residual hemiplegia # Chronic headaches Plan Continue dysphagia diet as recommended per CAM SPECIALIST. Meanwhile, ID and surgery signed off. Surgery has cleared for discharge. However sodium still 129. Per nephrology who is managing, sodium will need to be over 130 for discharge. Discharge plan per [facility] is to return to [facility] when medically stable. Tomorrow?? Check daily labs. Continue current tx the same. Total time spent (which include face to face and non face to face encounters) : 37 minutes Toxic drug monitoring/narrow therapeutic index drug monitoring if any: # Drug name : # Route administered : # Method of monitoring : Extended Emergency Contact Information Primary Emergency Contact: Joslyn Hollins Relation: Other JOSEPH CANELA MD Division of Hospitalist Medicine Inpatient Medical Services/[facility] [place]: Epic chat Speech-Language Pathology Facility/Department: [facility]-6 DYSPHAGIA TREATMENT NAME: Moises Madrid : 1960 ADMISSION DATE: 06/07/2022 ADMITTING DIAGNOSIS: has Chest pain; Chest pain, unspecified type; Obesity, Class I, BMI 30-34.9; Hyperlipidemia; Essential hypertension, benign; Depression; Hemiplegia (CMS/HCC) (HCC); and 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 Allergies Allergen Reactions Hydralazine Unknown Sulfamethoxazole-Trimethoprim Unknown Temazepam Unknown Tramadol Unknown Clindamycin Rash Burn, rash Burn, rash Oxygen Level: O2 Device: None (Room air) Liters of Oxygen: 4 L Current Diet Level: Dietary Orders (From admission, onward) Start Ordered 06/22/22 1231 Supplement:Breakfast, Lunch; Pro-Stat Modular Until discontinued Question Answer Comment Frequency Breakfast Frequency Lunch Select supplement: Pro-Stat Modular Comment mix PRO- STAT WITH with mildly thick lemon water 06/22/22 1230 06/22/22 1230 Adult diet Dysphagia - Minced and Moist; Mildly Thick (Romney) Diet effective now Question Answer Comment Diet type Dysphagia - Minced and Moist Fluid consistency Mildly Thick (Romney) 06/22/22 1230 06/13/22 1358 Supplement:Lunch, Dinner; Chocolate Magic Cup Until discontinued Question Answer Comment Frequency Lunch Frequency Dinner Select supplement: Chocolate Magic Cup 06/13/22 1357 General Chart Reviewed: Yes PPE Worn: surgical mask, gloves Behavior/Cognition: Alert, Cooperative Respiratory Status: Room air O2 Device: None (Room air) Follows Directions: Simple Current Diet : Dysphagia Minced and Moist (Dysphagia II) Current Liquid Diet : Mildly Thick (Romney) Dentition: Edentulous Patient Positioning: Upright in bed Pain: RN managing patient pain S: Patient is recline in bed, agreeable to ST. O: To assess dietary tolerance and implementation of compensatory strategies A: Patient consumes mildly thick liquids in small straw sips with mild verbal cues to utilize second swallow. Patient has no change in vocal quality or cough noted. Patient consumes minced and moist trials x4 with extended, but functional mastication and clear oral cavity post swallow. Patient again benefits from mild verbal cues to utilize second swallow. Recommend continue minced and moist/mildly thick liquids. Recommended Diet and Intervention Diet Solids Recommendation: Dysphagia Minced and Moist (Dysphagia II) Liquid Consistency Recommendation: Mildly Thick (Romney) Recommended Form of Meds: Meds in puree Recommendations: Dysphagia treatment Therapeutic Interventions: Oral motor exercises, Diet tolerance monitoring Compensatory Swallowing Strategies Compensatory Swallowing Strategies : Upright as possible for all oral intake, Swallow 2 times per bite/sip, Small bites/sips, External pacing (reswallow every few bites/sips) Treatment/Goals Encounter Problems Encounter Problems (Active) Swallowing Patient will tolerate recommended food and liquid consistencies without clinical signs and symptoms of aspirations (Progressing) Start: 06/11/22 Expected End: 06/25/22 Patient will participate in instrumental assessment of swallowing as appropriate (Completed) Start: 06/11/22 Expected End: 06/25/22 Met: 06/21/22 Education Patient and RN educated on diet recommendation with understanding expressed. P: Recommend continue minced and moist/mildly thick liquids with above strategies. ST to follow to advance as tolerated. Treatment Plan Requires CAM SPECIALIST Intervention: Yes Frequency/Duration: Frequency of Treatment: 3 days/wk for Duration of Treatment: 2 weeks Therapy Time Time Out: 1448 Total Time: 10 minutes ALISHA Sunshine 06/22/2022 2:59 PM Cardiology Progress Note Patient Name: Moises Madrid Patient Age: 61 y.o. Date: 06/22/2022 Alert, comfortable stable SUBJECTIVE: pt. In isolation Sob.c/o abd. Pain. No cp. PANCREATITIS. CHOLECYSTITIS. RENAL STONE, Stress . >> nl.. ef=65 % Leucocytosis.>>20. Blood asiml=448 mg. Gi consult reviewed. More alert. No cp.pulse ox=96. VITALS BP (!) 135/91 Pulse 100 Temp 36.8 C (98.3 F) Resp 22 Ht 6' 2 (1.88 m) Wt 248 lb 0.3 oz (113 kg) SpO2 95% BMI 31.84 kg/m I&O Feels better No more nausea Eager for discharge OBJECTIVE: 10 systems reviewed as seen below Neck: Neck JVP 0, No carotid bruits, thyroid not enlarged Cardiovascular system: NSR, Short systolic murmur, no gallop Chest: normal breath sounds Abdomen: Abdomen soft/non-tender, no organomegaly, bowel sounds present Extremities: No edema, no varicosity Endocrine : Hypothyroidism No Diabites yes GI system : GIB No Renal : CKD No TUBE BENDER HAND : CVA/TIA No Musculoskeletal system : DJD No LAB Lab Results Component Value Date NA 129 (L) 06/22/2022 K 3.8 06/22/2022 CL 96 (L) 06/22/2022 CO2 32 (H) 06/22/2022 BUN 17 06/22/2022 CREATININE 0.66 06/22/2022 GLUCOSE 204 (H) 06/22/2022 CALCIUM 8.0 (L) 06/22/2022 Lab Results Component Value Date WBC 13.0 (H) 06/22/2022 HGB 12.1 (L) 06/22/2022 HCT 34.7 (L) 06/22/2022 MCV 89.3 06/22/2022 PLT 377 06/22/2022 Lab Results Component Value Date TROPONINI <0.012 06/08/2022 Lab Results Component Value Date TSH 3.216 06/07/2022 No components found for: LABA1C No components found for: EAG Recent Labs 06/22/22 0426 ALKPHOS 72 ALT 27 AST 58* BILITOT 0.6 LIPASE 1,218* Lab Results Component Value Date BNP 49 06/07/2022 CARDIAC TESTING EKG: Encounter Date: 06/07/22 ECG 12 lead Result Value Heart Rate 111 QRSD Interval 94 QT Interval 352 QTC Interval 479 P [place] 43 QRS [place] -36 T Wave [place] 60 OH Interval 160 Impression SINUS TACHYCARDIA LEFT AXIS DEVIATION LATE PRECORDIAL R/S TRANSITION LEFT VENTRICULAR HYPERTROPHY Electronically Signed On 06-10-2022 9:55:05 EST by Dimple Wade Echo: No echocardiogram results found for the past 14 days Troponin: Stress Test: Cardiac Cath: IMPRESSION : chest infilterate.>>possible pne./ hypoxia. Abd. Pain. 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 CHOLECYSTITIS, RENAL STONE, HYPONATREMIA, NA-=129. > RESTRICT FLUIDS. Xq=771. Cr0.88/22. na >>low= 126. SLOWLY IMPROVING. LESS ABD. PAIN. TOLERATING FOOD. PLAN : Chest pain>>>Stress test normal., ef=65 %NO CP TODAY, CP DUE TO PANCREATITIS. Noncardiac cp. CARDIAC STATUS IS STABLE. Essential hypertension, benign>>>Meds Hyperlipidemia>>Meds>>Meds Troponin=0.012. ekg no change, Dr. Dickerson and advise changing Zosyn to Ertapenem therapy on 06/14. However, patient vital signs change becoming more tachycardic, tachypneic and febrile ho=053.>>111. BP= 143/85 MMHG. Ef=65 %. Pt/ot.DIET. SHELTON HERMAN M.D., FACC 06/22/2022 .. [facility] Progress Note Subjective/ 61 y.o. year old male who we are seeing in consultation for Hyponatremia. NAEON Feels better No more nausea Eager for discharge Appetite better per RN No other new issues at this time ROS done and negative unless mentioned as above No change in PFSH All data labs/interval notes and overnight issues are reviewed Objective/ Vitals: 06/22/22 0402 06/22/22 0600 06/22/22 0745 06/22/22 0800 BP: 137/86 138/82 (!) 144/96 BP Location: Left arm Patient Position: Lying Pulse: 94 96 102 Resp: 18 14 21 Temp: 36.9 C (98.4 F) 36.8 C (98.2 F) TempSrc: Oral SpO2: 95% 95% 94% Weight: 113 kg (248 lb 0.3 oz) Height: Intake/Output Summary (Last 24 hours) at 06/22/2022 1224 Last data filed at 06/22/2022 1000 Gross per 24 hour Intake 455 ml Output 2525 ml Net -2070 ml ARIPiprazole, 5 mg, Oral, Daily aspirin, 81 mg, Oral, Daily divalproex sprinkle, 250 mg, Oral, 2 times per day enoxaparin, 40 mg, SubCUTAneous, Daily guaiFENesin, 600 mg, Oral, BID influenza vaccine split quadravalent, 0.5 mL, IntraMUSCular, Once melatonin, 10 mg, Oral, Nightly memantine, 10 mg, Oral, BID miconazole, , Topical, BID senna-docusate sodium, 2 tablet, Oral, Daily venlafaxine, 75 mg, Oral, BID PRN medications: acetaminophen OR acetaminophen, bisacodyl, dextrose, dextrose, glucagon (rDNA), glucose, ipratropium-albuterol, lidocaine, melatonin, naloxone, nitroglycerin, ondansetron ODT OR ondansetron, polyethylene glycol (PEG) 3350, stomahesive in petrolatum Constitutional: awake, alert, no apparent distress Eyes: No icterus, no pallor HEENT: no pallor/cyanosis or icterus Cardiovascular: tachycardia+, S1, S2 without m/r/g Respiratory: cta b/l GI: +bs, soft, nt Ext: No LE edema Neck: supple, no thyroid enlargement, no JVD elevation Skin: warm, moist, no rashes Results from last 7 days Lab Units 06/22/2242506/21/22 0513 06/20/22 0616 SODIUM mmol/L 129* 126* 126* POTASSIUM mmol/L 3.8 4.0 3.8 CHLORIDE mmol/L 96* 93* 90* CO2 mmol/L 32* 33* 33* BUN mg/dL 17 19 22* CREATININE mg/dL 0.66 0.74 0.81 GLUCOSE mg/dL 204* 252* 241* CALCIUM mg/dL 8.0* 8.0* 8.2* Results from last 7 days Lab Units 06/22/2242506/21/22 0513 06/20/22 0616 WBC AUTO 10*3/uL 13.0* 16.2* 17.8* HEMOGLOBIN g/dL 12.1* 12.4* 13.2 HEMATOCRIT % 34.7* 36.1* 38.9* PLATELETS AUTO 10*3/uL 377 401 389 Assessment/Plan Acute hyponatremia likely 2/2 excess ADH (valproic acid, venlafaxine, narcotics ) versus poor p.o. solute intake Acute hyperglycemia 3. Acute hypoxic respiratory insufficiency 4. Acute pancreatitis 5. Right foot wounds 6. HTN, essential Plan: -Na levels near acceptable, is 131 with hyperglycemia correction -Sodium levels better off of NaCl and torsemide -Needs better glycemic control, A1c is 6.9 -Metabolic alkalosis is improving -On mildly thick nectar low-fat diet -Need to better control nausea to suppress ADH stimulus -C/w fluid restriction: 1.2L -Encourage 3 meals a day high in protein and ensure supplements ordered -Strict I&O -All other management defer to primary -D/w RN -Ok for discharge planning from renal standpoint for Na >130 -We will follow closely with you Thank you for the consult and the opportunity to participate in the care of this patient. Please do not hesitate to call with any questions or concerns. Brenda Blanco APRN, ADVANCED REGISTERED NURSE [facility], [facility] [phone] office I have reviewed the above assessment and plan with the VAMP MAKER. I agree with above note. Na levels acceptable. C/w protein intake. Treat nausea. Tighter glycemic control needed. 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 Allergies Allergen Reactions Hydralazine Unknown Sulfamethoxazole-Trimethoprim Unknown Temazepam Unknown Tramadol Unknown Clindamycin Rash Burn, rash Burn, rash Oxygen Level: O2 Device: Room air Current Diet Level: Dietary Orders (From admission, onward) Start Ordered 06/21/22 1520 Adult diet Dysphagia - Pureed; 1500 ml; Mildly Thick (Romney); Low Fat (less than or equal to 50 gm/day) Diet effective now Question Answer Comment Diet type Dysphagia - Pureed Dietary fluid restriction / 24h: 1500 ml Fluid consistency Mildly Thick (Romney) GI restriction: Low Fat (less than or equal to 50 gm/day) 06/21/22 1519 06/17/22 1418 Supplement:Breakfast, Lunch; Pro-Stat Modular Until discontinued Question Answer Comment Frequency Breakfast Frequency Lunch Select supplement: Pro-Stat Modular Comment mix with mildly thick lemon water 06/17/22 1420 06/13/22 1358 Supplement:Lunch, Dinner; Chocolate Magic Cup Until discontinued Question Answer Comment Frequency Lunch Frequency Dinner Select supplement: Chocolate Magic Cup 06/13/22 1357 Pain: No complaint S: Pt is alert and pleasant. Some smiling this date. More awake. O: Assess with advanced diet trials. Initiate exercise as able. A: Pt with increased spirits this date. He demonstrates poor intake of puree diet and does not want to eat any further. If alertness is good pt with improved function. Inconsistent with medical status. Pt was able to gum and prepare softened mi cracker pieces. Cues necessary to second and occasional reswallow to assist with clearing pharyngeal residuals. Redirected to white board to assist with recall. Functional clearing of soft textures. Pt indicated that a change in foods sounds very good. Will continue advanced trials as appropriate. Recommended Diet and Intervention Diet Solids Recommendation: Dysphagia Minced and Moist (Dysphagia II) Liquid Consistency Recommendation: Mildly Thick (Romney) Recommended Form of Meds: Meds in puree Therapeutic Interventions: Patient/Family education Compensatory Swallowing Strategies Compensatory Swallowing Strategies : External pacing, Upright as possible for all oral intake, Swallow 2 times per bite/sip (reswallow every few bites) Treatment/Goals Encounter Problems Encounter Problems (Active) Swallowing Patient will tolerate recommended food and liquid consistencies without clinical signs and symptoms of aspirations (Progressing) Start: 06/11/22 Expected End: 06/25/22 Patient will participate in instrumental assessment of swallowing as appropriate (Completed) Start: 06/11/22 Expected End: 06/25/22 Met: 06/21/22 Education Education Given: swallowing strategies, diet recommendations Education Given To: Patient, RN RN name: Kristi Palmer Response: Needs reinforcement P: Continue dysphagia POC. Assess tolerance of upgraded diet. Requested minced and moist diet upgrade. Continue mildly thick liquis. Treatment Plan Requires CAM SPECIALIST Intervention: Yes Frequency/Duration: Frequency of Treatment: 3 days/wk for Duration of Treatment: 2 weeks Therapy Time CAM SPECIALIST Individual Minutes Time In: 1537 Time Out: 1555 Minutes: 18 ALISHA Canchola 06/21/2022 4:03 PM .. [facility] Progress Note Subjective/ 61 y.o. year old male who we are seeing in consultation for Hyponatremia. NAEON Remains fatigued C/o some nausea still Overall poor historian Appetite better per RN No other new issues at this time ROS done and negative unless mentioned as above No change in PFSH All data labs/interval notes and overnight issues are reviewed Objective/ Vitals: 06/21/22 0802 06/21/22 0851 06/21/22 1202 06/21/22 1410 BP: (!) 149/94 (!) 142/89 (!) 124/90 133/77 BP Location: Left arm Left arm Patient Position: Lying Lying Pulse: 99 101 100 103 Resp: 19 22 20 20 Temp: 36.6 C (97.8 F) 36.4 C (97.6 F) TempSrc: Oral Oral SpO2: 93% 91% 94% 95% Weight: Height: Intake/Output Summary (Last 24 hours) at 06/21/2022 1524 Last data filed at 06/21/2022 1410 Gross per 24 hour Intake 680 ml Output 1650 ml Net -970 ml ARIPiprazole, 5 mg, Oral, Daily aspirin, 81 mg, Oral, Daily divalproex sprinkle, 250 mg, Oral, 2 times per day enoxaparin, 40 mg, SubCUTAneous, Daily guaiFENesin, 600 mg, Oral, BID influenza vaccine split quadravalent, 0.5 mL, IntraMUSCular, Once melatonin, 10 mg, Oral, Nightly memantine, 10 mg, Oral, BID miconazole, , Topical, BID senna-docusate sodium, 2 tablet, Oral, Daily venlafaxine, 75 mg, Oral, BID PRN medications: acetaminophen OR acetaminophen, bisacodyl, dextrose, dextrose, glucagon (rDNA), glucose, ipratropium-albuterol, lidocaine, melatonin, naloxone, nitroglycerin, ondansetron ODT OR ondansetron, polyethylene glycol (PEG) 3350, stomahesive in petrolatum Constitutional: fatigued, no apparent distress Eyes: No icterus, no pallor HEENT: no pallor/cyanosis or icterus Cardiovascular: tachycardia+, S1, S2 without m/r/g Respiratory: wheezing throughout GI: +bs, soft, nt Ext: No LE edema Neck: supple, no thyroid enlargement, no JVD elevation Skin: warm, moist, no rashes Results from last 7 days Lab Units 06/21/22 0513 06/20/22 0616 06/19/22 0301 SODIUM mmol/L 126* 126* 126* POTASSIUM mmol/L 4.0 3.8 3.9 CHLORIDE mmol/L 93* 90* 90* CO2 mmol/L 33* 33* 34* BUN mg/dL 19 22* 24* CREATININE mg/dL 0.74 0.81 0.85 GLUCOSE mg/dL 252* 241* 250* CALCIUM mg/dL 8.0* 8.2* 7.9* Results from last 7 days Lab Units 06/21/22 0513 06/20/22 0616 06/19/22 0301 WBC AUTO 10*3/uL 16.2* 17.8* 19.0* HEMOGLOBIN g/dL 12.4* 13.2 13.0 HEMATOCRIT % 36.1* 38.9* 38.2* PLATELETS AUTO 10*3/uL 401 389 325 Assessment/Plan Acute hyponatremia likely 2/2 excess ADH (valproic acid, venlafaxine, narcotics ) versus poor p.o. solute intake Acute hyperglycemia 3. Acute hypoxic respiratory insufficiency 4. Acute pancreatitis 5. Right foot wounds 6. HTN, essential Plan: -Na levels near acceptable, is 128 with hyperglycemia correction -Needs better glycemic control, check A1c -Metabolic alkalosis is tolerable -On mildly thick nectar low-fat diet -Need to better control nausea to suppress ADH stimulus -C/w fluid restriction: 1.2L -Encourage 3 meals a day high in protein and ensure supplements ordered -May need tolvaptan tomorrow 06/22 if levels remain stagnant -Strict I&O -All other management defer to primary/ICU teams -D/w RN -We will follow closely with you Thank you for the consult and the opportunity to participate in the care of this patient. Please do not hesitate to call with any questions or concerns. Brenda Blanco APRN, ADVANCED REGISTERED NURSE [facility], [facility] [phone] office Seen and examined. Agree with above A and p. Hold salt and Torsemide. Encourage po protein intake. Treat nausea. Tighter glycemic control needed. Images from the original note were not included. Hospitalist Progress Note 06/21/2022 Subjective: Admit Date: 06/07/2022 PCP: Demetrius Fenton Room#: 232-06/[id number] A Interval History: No overnight issues. Denies any chest pain or shortness of breath, speech therapy changed the recommendation to minced and moist diet Denies any chest pain or shortness of breath, complains of some nausea, overall poor historian Adult diet Dysphagia - Pureed; 1500 ml; Mildly Thick (Romney); Low Fat (less than or equal to 50 gm/day) 24HR INTAKE/OUTPUT: Intake/Output Summary (Last 24 hours) at 06/21/2022 1520 Last data filed at 06/21/2022 1410 Gross per 24 hour Intake 680 ml Output 1650 ml Net -970 ml Past Medical History: Past Medical History: Diagnosis Date Anxiety Ataxia Bipolar disorder (HCC) Chronic pain Constipation Contracture, right hand Depression Dysphagia Dysphagia Dysphonia Edema GERD (gastroesophageal reflux disease) Headache Hemiplegia (CMS/HCC) (HCC) Hyperlipidemia Hypertension Insomnia Muscle weakness Neuropathy TBI (traumatic brain injury) LABS: CBC: Recent Labs 06/19/22 0301 06/20/22 0616 06/21/22 0513 WBC 19.0* 17.8* 16.2* RBC 4.26* 4.33* 4.02* HGB 13.0 13.2 12.4* HCT 38.2* 38.9* 36.1* MCV 89.6 90.0 89.8 RDW 13.9 13.7 13.8 PLT 325 389 401 BMP: Recent Labs 06/19/22 0301 06/20/22 0616 06/21/22 0513 NA 126* 126* 126* K 3.9 3.8 4.0 CL 90* 90* 93* CO2 34* 33* 33* BUN 24* 22* 19 CREATININE 0.85 0.81 0.74 GLUCOSE 250* 241* 252* CALCIUM 7.9* 8.2* 8.0* ANIONGAP 1* 3 0* LIVER PROFILE: Recent Labs 06/19/22 0301 06/20/22 0616 06/21/22 0513 AST 43 43 56* ALT 36 37 30 BILITOT 0.6 0.6 0.7 ALKPHOS 100 97 78 PROT 6.6 6.7 6.5 PT/INR: No results for input(s): PROTIME, INR in the last 72 hours. CARDIAC ENZYMES: No results for input(s): TROPONINI in the last 72 hours. Procalcitonin: No results found for: PROCAL COVID-19 PCR: No results for input(s): COVID19 in the last 72 hours. Objective: Vitals: BP 133/77 (BP Location: Left arm, Patient Position: Lying) Pulse 103 Temp 36.4 C (97.6 F) (Oral) Resp 20 Ht 1.88 m (6' 2) Wt 113 kg (248 lb 3.8 oz) SpO2 95% BMI 31.87 kg/m Pulse Ox: SpO2 Av.9 % Min: 91 % Max: 95 % Supplemental O2: O2 Flow Rate (L/min): (S) 0 L/min (room air) Physical Exam Constitutional: General: He is not in acute distress. Appearance: He is ill-appearing. HENT: Head: Normocephalic and atraumatic. Nose: Congestion present. Mouth/Throat: Mouth: Mucous membranes are moist. Pharynx: Oropharynx is clear. Eyes: Extraocular Movements: Extraocular movements intact. Conjunctiva/sclera: Conjunctivae normal. Pupils: Pupils are equal, round, and reactive to light. Cardiovascular: Rate and Rhythm: Regular rhythm. Tachycardia present. Heart sounds: Murmur heard. No friction rub. No gallop. Abdominal: General: Bowel sounds are normal. There is no distension. Tenderness: There is no abdominal tenderness. There is no guarding. Comments: obese Musculoskeletal: General: Tenderness present. Right lower leg: Edema present. Comments: Right calf venous ulcer Skin: General: Skin is dry. Findings: Lesion present. Neurological: Mental Status: He is alert and oriented to person, place, and time. Mental status is at baseline. Motor: Weakness present. Comments: Hemiplegia, no new deficits Psychiatric: Mood and Affect: Mood normal. Behavior: Behavior normal. Medications: Current Facility-Administered Medications: acetaminophen (Tylenol) tablet 650 mg, 650 mg, Oral, q6h PRN, 650 mg at 06/20/222046 OR acetaminophen (Tylenol) suppository 650 mg, 650 mg, Rectal, q6h PRN, Brenda Hagan ARIPiprazole (Abilify) tablet 5 mg, 5 mg, Oral, Daily, SIMIN Frausto CNP, 5 mg at 06/21/22 0853 aspirin chewable tablet 81 mg, 81 mg, Oral, Daily, Brenda Hagan, 81 mg at 06/21/22 0853 bisacodyl (Dulcolax) suppository 10 mg, 10 mg, Rectal, Daily PRN, Mani Edgar DO dextrose 5 % infusion, 100 mL/hr, IntraVENous, PRN, Jennie Castelan PA-C dextrose 50 % solution 12.5 g, 12.5 g, IntraVENous, PRN, Jennie Castelan PA-C divalproex sprinkle (Depakote Sprinkle) DR capsule 250 mg, 250 mg, Oral, 2 times per day, SIMIN Frausto CNP, 250 mg at 06/21/22 0852 enoxaparin (Lovenox) syringe 40 mg, 40 mg, SubCUTAneous, Daily, Brenda Hagan, 40 mg at 06/21/22 0852 glucagon (human recombinant) injection 1 mg, 1 mg, IntraMUSCular, PRN, Jennie Castelan PA-C glucose oral gel 15 g, 15 g, Oral, PRN, Jennie Castelan PA-C guaiFENesin (Mucinex) 12 hr tablet 600 mg, 600 mg, Oral, BID, Shreya Cast MD, 600 mg at 06/21/22 0853 influenza vaccine split quadravalent (Flulaval,Fluzone,Fluarix,Afluria) syringe 0.5 mL, 0.5 mL, IntraMUSCular, Once, Brenda Hagan ipratropium-albuterol (Duo-Neb) 0.5-2.5 mg/3 mL nebulizer solution 3 mL, 3 mL, Nebulization, 4x daily PRN, Leobardo Akbar MD, 3 mL at 06/16/22 0110 lidocaine (Uro-Jet) 2 % gel, , Urethral, PRN, Mani Edgar DO melatonin tablet 10 mg, 10 mg, Oral, Nightly, SIMIN Frausto CNP, 10 mg at 06/20/222046 melatonin tablet 6 mg, 6 mg, Oral, Nightly PRN, Brenda Hagan, 6 mg at 06/11/22 211 memantine (Namenda) tablet 10 mg, 10 mg, Oral, BID, SIMIN Frausto CNP, 10 mg at 06/21/22 0852 miconazole (Micotin) 2 % powder, , Topical, BID, SIMIN Maddox CNP, Given at 06/21/22 0853 naloxone (Narcan) injection 0.4 mg, 0.4 mg, IntraVENous, PRN, Asia Nelson MD nitroglycerin (Nitrostat) SL tablet 0.4 mg, 0.4 mg, SubLINGual, q5 min PRN, Brenda Hagan ondansetron ODT (Zofran-ODT) disintegrating tablet 4 mg, 4 mg, Oral, q8h PRN, 4 mg at 06/13/22 0518 OR ondansetron (Zofran) injection 4 mg, 4 mg, IntraVENous, q6h PRN, Brenda Hagan polyethylene glycol (PEG) 3350 (Miralax) packet 17 g, 17 g, Oral, Daily PRN, Brenda Hagan, 17 g at 06/21/22 0546 senna-docusate sodium (Senokot-S) 8.6-50 MG tablet 2 tablet, 2 tablet, Oral, Daily, Mani Edgar, DO, 2 tablet at 06/21/22 08 stomahesive in petrolatum (ET Mix), , Topical, PRN, Bertha Rodrigez, INSURANCE FOLLOW UP REPRESENTATIVE - ADVANCED REGISTERED NURSE, Given at 06/18/222122 venlafaxine (Effexor) tablet 75 mg, 75 mg, Oral, BID, Ira Tania, INSURANCE FOLLOW UP REPRESENTATIVE - ADVANCED REGISTERED NURSE, 75 mg at 06/21/22 08 Assessment Data: (CAT1) CBC, BMP, lactate, liver enzymes, UA ordered & reviewed, they show white count of 16,000 and sodium of 126 (CAT3) Mgmt of the patient was discussed with case managementAnd speech therapy [name], who stated, in summary: We will change the diet to minced consistency (LOW: 2x CAT1 or independent historian MOD: 3x CAT1 or 1x CAT3 EXTENSIVE: 3x CAT1 and 1x CAT3) Acute, acute on chronic, unstable/uncontrolled chronic problems/diagnoses: SIRS Acute pancreatitis with peripancreatic abscess s/p percutaneous drain (06/10) Acute hypoxic respiratory insufficiency 2/2 coronavirus and pulmonary vascular congestion Coronavirus Acute hyponatremia EDWARDO - resolved Right foot wounds - no active infection Hyperkalemia-resolved Stable chronic problems affecting care, new non-acute diagnoses: HTN HLD Hx of TBI, stroke and residual hemiplegia Chronic headaches Plan As a result of the above findings & factors, the following mgmt was pursued: Finished antibiotics for pancreatitis currently off of them -Dysphagia treatment in progress diet is changed to minced Nephrology following, sodium is 126 - am labs, replace lytes prn - PT/OT/CM/SW - delirium precautions: increase activity and limit nighttime disturbances - DVT prophylaxis: enoxaparin and encourage ambulation Complexity: Chronic illness with severe exacerbation, progression, or side effect of tx (HIGH). Risk: Drug therapy requiring intensive monitoring (HIGH). Advance Directive: Full Code Anticipated Discharge - Date - 06/23/22 - Location - Skilled Facility - Pending the following -pending improvement in sodium levels Total time spent (which include face to face and non face to face encounters) : greater than minutes Extended Emergency Contact Information Primary Emergency Contact: Joslyn Hollins Relation: Other Janey Tee MD Division of Hospitalist Medicine Inpatient Medical Services/[facility] [place] [facility] Progress Note Patient Name: Moises Madrid Patient Age: 61 y.o. Date: 06/21/2022 Alert, comfortable stable SUBJECTIVE: pt. In isolation Sob.c/o abd. Pain. No cp. PANCREATITIS. CHOLECYSTITIS. RENAL STONE, Stress . >> nl.. ef=65 % Leucocytosis.>>20. Blood umuzw=563 mg. Gi consult reviewed. More alert. No cp.pulse ox=96. VITALS BP (!) 142/89 (BP Location: Left arm, Patient Position: Lying) Pulse 101 Temp 36.6 C (97.8 F) (Oral) Resp 22 Ht 6' 2 (1.88 m) Wt 248 lb 3.8 oz (113 kg) SpO2 91% BMI 31.87 kg/m I&O Intake/Output Summary (Last 24 hours) at 06/21/2022 1326 Last data filed at 06/21/2022 0851 Gross per 24 hour Intake 300 ml Output 1300 ml Net -1000 ml OBJECTIVE: 10 systems reviewed as seen below Neck: Neck JVP 0, No carotid bruits, thyroid not enlarged Cardiovascular system: NSR, Short systolic murmur, no gallop Chest: normal breath sounds Abdomen: Abdomen soft/non-tender, no organomegaly, bowel sounds present Extremities: No edema, no varicosity Endocrine : Hypothyroidism No Diabites yes GI system : GIB No Renal : CKD No TUBE BENDER HAND : CVA/TIA No Musculoskeletal system : DJD No LAB Lab Results Component Value Date NA 126 (L) 06/21/2022 K 4.0 06/21/2022 CL 93 (L) 06/21/2022 CO2 33 (H) 06/21/2022 BUN 19 06/21/2022 CREATININE 0.74 06/21/2022 GLUCOSE 252 (H) 06/21/2022 CALCIUM 8.0 (L) 06/21/2022 Lab Results Component Value Date WBC 16.2 (H) 06/21/2022 HGB 12.4 (L) 06/21/2022 HCT 36.1 (L) 06/21/2022 MCV 89.8 06/21/2022 PLT 401 06/21/2022 Lab Results Component Value Date TROPONINI <0.012 06/08/2022 Lab Results Component Value Date TSH 3.216 06/07/2022 No components found for: LABA1C No components found for: EAG Recent Labs 06/21/22 0513 ALKPHOS 78 ALT 30 AST 56* BILITOT 0.7 LIPASE 1,352* Lab Results Component Value Date BNP 49 06/07/2022 CARDIAC TESTING EKG: Encounter Date: 06/07/22 ECG 12 lead Result Value Heart Rate 111 QRSD Interval 94 QT Interval 352 QTC Interval 479 P [place] 43 QRS [place] -36 T Wave [place] 60 OH Interval 160 Impression SINUS TACHYCARDIA LEFT AXIS DEVIATION LATE PRECORDIAL R/S TRANSITION LEFT VENTRICULAR HYPERTROPHY Electronically Signed On 06-10-2022 9:55:05 EST by Dimple Wade Echo: Transthoracic echocardiogram (TTE) complete with contrast, bubble, strain, and 3D PRN Result Date: 06/08/2022 Left Ventricle: Left ventricle size is normal. Normal wall thickness. Normal left ventricular systolic function. EF by 2D Simpsons Biplane is 70%. Normal wall motion. Right Ventricle: Right ventricle is mildly dilated. Normal systolic function. No significant valvular abnormalities. Troponin: Stress Test: Cardiac Cath: IMPRESSION : chest infilterate.>>possible pne./ hypoxia. Abd. Pain. 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 CHOLECYSTITIS, RENAL STONE, HYPONATREMIA, NA-=129. > RESTRICT FLUIDS. Wh=110. Cr0.88/22. na >>low= 126. SLOWLY IMPROVING. LESS ABD. PAIN. TOLERATING FOOD. PLAN : Chest pain>>>Stress test normal., ef=65 %NO CP TODAY, CP DUE TO PANCREATITIS. Noncardiac cp. CARDIAC STATUS IS STABLE. Essential hypertension, benign>>>Meds Hyperlipidemia>>Meds>>Meds Troponin=0.012. ekg no change, Dr. Dickerson and advise changing Zosyn to Ertapenem therapy on 06/14. However, patient vital signs change becoming more tachycardic, tachypneic and febrile jq=646.>>111. BP= 143/85 MMHG. Ef=65 %. Pt/ot. SHELTON HERMAN M.D., FACC 06/21/2022 Images from the original note were not included. [facility] Wound Care Progress Note Moises Madrid AGE: 61 y.o. GENDER: male : 1960 Subjective: HISTORY of PRESENT ILLNESS HPI Moises Madrid is a 61 y.o. male who presents for a wound follow up both thighs healed, continue ET mix, lesser toes on right foot treatment. 06/08/22 PVR results: Right side findings: Resting JULES is 1.15. This is within the normal range. Left side findings: Resting JULES is 1.09. This is within the normal range. 06/11/22 Venous duplex result - negative for DVT rt/left LE PAST MEDICAL HISTORY Active Ambulatory Problems Diagnosis Date Noted Chest pain, unspecified type 06/08/2022 Resolved Ambulatory Problems Diagnosis Date Noted No Resolved Ambulatory Problems Past Medical History: Diagnosis Date Anxiety Ataxia Bipolar disorder ([facility]) Chronic pain Constipation Contracture, right hand Depression Dysphagia Dysphagia Dysphonia Edema GERD (gastroesophageal reflux disease) Headache Hemiplegia (CMS/HCC) (HCC) Hyperlipidemia Hypertension Insomnia Muscle weakness Neuropathy TBI (traumatic brain injury) PAST SURGICAL HISTORY Past Surgical History: Procedure Laterality Date CRANIOTOMY FAMILY HISTORY No family history on file. SOCIAL HISTORY Social History Tobacco Use Smoking status: Never Smokeless tobacco: Never Vaping Use Vaping Use: Never used Substance Use Topics Alcohol use: Never Drug use: Never ALLERGIES Allergies Allergen Reactions Hydralazine Unknown Sulfamethoxazole-Trimethoprim Unknown Temazepam Unknown Tramadol Unknown Clindamycin Rash Burn, rash Burn, rash MEDICATIONS No current facility-administered medications on file prior to encounter. Current Outpatient Medications on File Prior to Encounter Medication Sig Dispense Refill cloNIDine (Catapres) 0.[address] 0.3 mg on the skin 1 (one) time per week. acetaminophen (Tylenol) 325 MG tablet Take 650 mg by mouth every 4 hours as needed for mild pain (1-3). albuterol (2.5 MG/3ML) 0.083% nebulizer solution Take by nebulization every 3-4 hours as needed for wheezing. ARIPiprazole (Abilify) 5 MG tablet Take 5 mg by mouth daily. aspirin 81 MG EC tablet Take 81 mg by mouth daily. atorvastatin (Lipitor) 40 MG tablet Take 40 mg by mouth Nightly. cholecalciferol (Vitamin D3) 1.25 MG (46981 UT) tablet Take by mouth 1 (one) time per week. clobetasol (Temovate) 0.05 % cream Apply topically 2 times daily. dextromethorphan 15 MG/5ML syrup Take 10 mL by mouth as needed for cough. divalproex (Depakote ER) 500 MG 24 hr tablet Take 500 mg by mouth Nightly. Docusate Sodium (DSS) 100 MG capsule Take 100 mg by mouth daily. famotidine (Pepcid) 20 MG tablet Take 20 mg by mouth every morning. famotidine (Pepcid) 40 MG tablet Take 40 mg by mouth in the morning. gabapentin (Neurontin) 100 MG capsule Take 200 mg by mouth 2 times daily. gabapentin (Neurontin) 300 MG capsule Take 300 mg by mouth Nightly. glucosamine-chondroitin 500-400 MG tablet Take 1 tablet by mouth in the morning and 1 tablet in the evening. guaiFENesin (Mucinex) 600 MG 12 hr tablet Take 1,200 mg by mouth 2 times daily. Do not crush, chew, or split. HYDROcodone-acetaminophen ([place]) 5-325 MG tablet Take 1 tablet by mouth every 6 hours as needed. ketoconazole (NIZOral) 2 % cream Apply topically 2 times daily. lisinopril 20 MG tablet Take 40 mg by mouth daily. melatonin 5 MG tablet Take 3 mg by mouth Nightly. memantine (Namenda) 10 MG tablet Take 10 mg by mouth 2 times daily. metoprolol tartrate (Lopressor) 25 MG tablet Take 25 mg by mouth 2 times daily. mineral oil-hydrophilic petrolatum (Aquaphor) ointment Apply topically if needed for dry skin. [place]-3 Fatty Acids (Fish Oil) 1000 MG capsule delayed-release Take 2,000 mg by mouth. potassium chloride CR (Klor-Con M20) 20 MEQ ER tablet Take 40 mEq by mouth daily. Do not crush or chew. spironolactone (Aldactone) 100 MG tablet Take 100 mg by mouth daily. tamsulosin (Flomax) 0.4 MG 24 hr capsule Take 0.4 mg by mouth daily. tiZANidine (Zanaflex) 2 MG tablet Take 4 mg by mouth every 12 hours as needed for muscle spasms. venlafaxine (Effexor) 75 MG tablet Take 75 mg by mouth 2 times daily. REVIEW OF SYSTEMS Pertinent items are noted in HPI. Objective: BP (!) 142/89 (BP Location: Left arm, Patient Position: Lying) Pulse 101 Temp 36.6 C (97.8 F) (Oral) Resp 22 Ht 6' 2 (1.88 m) Wt 248 lb 3.8 oz (113 kg) SpO2 91% BMI 31.87 kg/m PHYSICAL EXAM Constitutional: in no apparent distress, well developed and well nourished, in no respiratory distress and acyanotic, and cooperative SKIN : no rashes or significant lesions,right lesser toes - Improved - 2nd toe 2cm x1cm x0.1cm moderate serosang drainage, red dry wound bed, surrounding skin intact, 3rd toe (1cm x1cm x0.1cm ) closed scab, no drainage, surrounding skin intact Stable. Abdominal skin folds moist and pink blanchable Right posterior thigh - Improved with dark pink blanchable tissues intact. Left post thigh and perineum - Improved - intact skin. Pulmonary: Normal effort, no respiratory distress, no cyanosis Abdomen: soft, nontender, and nondistended, drain in place, scant sanguinous drainage venous stasis dermatitis noted 06/14/22 photo: 06/08/22 photo: LABS CBC: Lab Results Component Value Date WBC 16.2 (H) 06/21/2022 HGB 12.4 (L) 06/21/2022 HCT 36.1 (L) 06/21/2022 MCV 89.8 06/21/2022 PLT 401 06/21/2022 BMP: Lab Results Component Value Date NA 126 (L) 06/21/2022 K 4.0 06/21/2022 CL 93 (L) 06/21/2022 CO2 33 (H) 06/21/2022 BUN 19 06/21/2022 CREATININE 0.74 06/21/2022 PT/INR: No results found for: PROTIME, INR Prealbumin: No results found for: PREALBUMIN Albumin:No components found for: LABALBU Sed Rate:No results found for: SEDRATE Micro: No components found for: BC Assessment/Plan: Idiopathic chronic venous hypertension of right lower extremity with ulcer Right lesser toes - cleanse with betadine apply betadine moist gauze and dry dressing, change daily . PVR reviewed WNL Venous insufficiency Elevate legs as much as possible Right posterior thigh Moisture associated skin damage from friction and other body fluids. - ET mix BID Left post thigh and perineum - ET mix BID . Intertrigo, abdominal fold - miconazole powder BID Please follow up at [facility] after hospital discharge. I personally obtained the castro and critical portions of the history and physical exam. I reviewed the labs, imaging studies, and electronic medical record. I reviewed the chart documentation and discussed the patient with treatment team members. I have edited the note to reflect my clinical findings and my assessment and plan. Please note, the time of this note does not reflect the time I saw this patient today, but the time of this documentaton. Portions of this note including HPI, ROS, impression/plan, and examination may have been copied forward from admission to today as to provide important historical information essential in contributing to medical decision making. Documentation has been reviewed and edited as necessary to support clinical decision making for today's visit and to reflect my own independent evaluation of this patient. Decision making for today's visit and to reflect my own independent evaluation of this patient. [facility] - Infectious Diseases Attending Progress Note Subjective: No acute events- still c/o epigastric pain, no more nausea. Afebrile. Tolerating soft diet, does not appear to aggravate GI symptoms. Buckley with good UOP. Objective: Vitals: Patient Vitals for the past 24 hrs: BP Temp Temp src Pulse Resp SpO2 Weight 06/21/22512 -- -- -- -- -- -- 113 kg (248 lb 3.8 oz) 06/21/22 0402 (!) 127/90 36.7 C (98 F) Oral 100 20 94 % -- 06/21/22 0002 130/89 36.9 C (98.5 F) Oral 105 19 92 % -- 06/20/222001 (!) 144/95 36.9 C (98.4 F) Oral 110 25 92 % -- 06/20/22 1755 (!) 140/92 36.1 C (97 F) Oral 109 19 91 % -- 06/20/22 1713 (!) 135/92 -- -- 109 24 93 % -- 06/20/22 1702 -- -- -- 108 19 94 % -- Physical Exam Vitals reviewed. Constitutional: General: He is not in acute distress. Appearance: He is ill-appearing (chronically, but nontoxic). HENT: Mouth/Throat: Mouth: Mucous membranes are moist. Eyes: Extraocular Movements: Extraocular movements intact. Conjunctiva/sclera: Conjunctivae normal. Pupils: Pupils are equal, round, and reactive to light. Cardiovascular: Rate and Rhythm: Normal rate and regular rhythm. Pulses: Normal pulses. Heart sounds: Normal heart sounds. No murmur heard. Pulmonary: Effort: Pulmonary effort is normal. No respiratory distress. Breath sounds: Normal breath sounds. Abdominal: General: There is no distension. Palpations: Abdomen is soft. There is no mass. Tenderness: There is no abdominal tenderness. Musculoskeletal: General: No swelling. Normal range of motion. Cervical back: Normal range of motion and neck supple. Right lower leg: No edema. Left lower leg: No edema. Skin: Findings: Erythema (chronic stasis changes, dry flaking skin to LEs) present. Neurological: Mental Status: He is alert. Motor: Weakness (R hemiplegia) present. Psychiatric: Mood and Affect: Mood normal. Thought Content: Thought content normal. Labs: Lab Results Component Value Date/Time NA 126 (L) 06/21/2022512 K 4.0 06/21/2022512 CL 93 (L) 06/21/2022512 CO2 33 (H) 06/21/2022512 BUN 19 06/21/2022 0513 CREATININE 0.74 06/21/2022 0513 CREATININE 0.97 02/19/20202057 GLUCOSE 252 (H) 06/21/2022 05 CALCIUM 8.0 (L) 06/21/2022 0513 PROT 6.5 06/21/2022 05 BILITOT 0.7 06/21/2022 05 ALKPHOS 78 06/21/2022 05 AST 56 (H) 06/21/2022512 ALT 30 06/21/2022 05 PROCAL 0.46 (H) 06/16/2022 0318 PROCAL 0.47 (H) 06/14/2022225 PROCAL 0.06 06/10/2022228 Lab Results Component Value Date/Time WBC 16.2 (H) 06/21/2022512 HGB 12.4 (L) 06/21/2022512 HCT 36.1 (L) 06/21/2022512 PLT 401 06/21/2022512 LYMPHOPCT 20 06/21/2022 05 LYMPHOPCT 17.9 (L) 06/20/2022 0616 MONOPCT 3 06/21/2022 05 MONOPCT 6.1 06/20/2022 0616 BASOPCT 0.9 06/20/202216 NEUTROABS 12.8 (H) 06/20/202216 Micro: reviewed Lines: PIV Drain(arden) buckley Radiography/Echo/Other: reviewed Antimicrobials, Start/End Dates: Offa bx Vancomycin, to 06/16 Piptazo to Ertape to Meropenem (to 06/16) Impression: 1 Acute Pancreatitis with sterile fluid collection drained 06/10/22 with all negative cultures and clinical improvement in strenght, alertness and nutritional intake continue off antibiotics for past 48 hrs. Rising lipase likely due to increasing dietary intake, and WBC elevation of 19 is stable and most likely due to the pancreatic inflammation ??cause of pancreatitis in this ECF patient from [facility]. H/o EtOH use. 2 No evidence of active infection - the covid test done yesterday in [place]-up of a positive coronavirus on Resp PCR screen was NEGATIVE Had 8 days of empiric antibiotics for suspected infected abscess of pancreas but drainage fluid was sterile 3) electrolyte imbalance & fluid imbalance- followed by renal- 4) diabetic- glucose levels running high in 200 range 5) history of obesity with weight now decreasing 6) R hemiplegia s/p remote CVA 7) severe leg venous stasis dermatitis 8)Leukocytosis-slowly improving Overall HD stable. Plan: Watch off antibiotics. Nothing more from ID at this time. Will sign off. Thank you for the opportunity to participate in this patient's care. [facility] - Surgery [facility] Physicians Surgery Patient Name: Moises Madrid Date: 06/21/2022 Patient seen and examined by myself and I agree with SKY note below Resting in bed and appears comfortable Abdominal complaints about the same Abdomen soft tender epigastric no peritoneal signs minimal output in drainage bag Labs and imaging reviewed Assessment /Plan: Acute pancreatitis with peripancreatic fluid collection status post drainage and no growth seen in fluid Remove drain No acute surgical issues and none anticipated this hospitalization Continue current management per medical team and infectious disease Surgery will sign off, available if needed. Thanks Patient counseled on risks,benefits, and alternatives of treatement plan at length. Patient states an understanding and willingness to proceed with plan. I personally supervised my SKY and/or resident in the evaluation and management of Moises Madrid in the development of a treatment plan for this patient. I personally interviewed the patient and performed an individual physical examination. In addition, I discussed the patient's condition and treatment options with them. I have also reviewed and agree with the past medical, family and social history and care plan unless otherwise noted. All of the patient's questions were answered. This case represents moderate level care including chart review, care coordination and face to face encounter was spent discussing/counseling the patient regarding the care plan for this patient. The patient was seen and examined independently and relevant data reviewed by myself. A full chart review was performed. Remigio Napier MD FACS General Surgery 4:07 PM 06/21/2022 GENERAL SURGERY Progress Note PATIENT NAME: Moises Madrid TODAY'S DATE: 06/21/2022 SUBJECTIVE: Patient seen this morning sitting up in bed ready to start breakfast. He notes continued upper abdominal and lower chest pressure but denies new chest pain, abdominal pain, nausea, or vomiting. He continues to pass gas but has not had a bowel movement in a couple of days. Patient in good spirits and hoping for discharge soon. Pain controlled Yes Other Complaints No Flatus/BM/or Ostomy function Yes OBJECTIVE: VITALS: BP (!) 127/90 (BP Location: Left arm, Patient Position: Lying) Pulse 100 Temp 36.7 C (98 F) (Oral) Resp 20 Ht 6' 2 (1.88 m) Wt 248 lb 3.8 oz (113 kg) SpO2 94% BMI 31.87 kg/m INTAKE/OUTPUT: I/O last 3 completed shifts: In: 400 (3.6 mL/kg) [P.O.:400] Out: 2034 (18.1 mL/kg) [Urine:2024 (0.5 mL/kg/hr); Drains:10] Weight: 112.6 kg No intake/output data recorded. REVIEW OF SYSTEMS: Pertinent positives and negatives as per interval history section PHYSICAL EXAM: CONSTITUTIONAL: A&O x 3, LUNGS: Resp effort easy and unlabored, breath sounds normal CARDIOVASCULAR: RRR ABDOMEN: soft, nondistended, nontender, peritoneal signs absent, drain in place with scant brown drainage in bag. Removed at bedside- patient tolerated well. Site dressed with gauze and tape. MUSCULOSKELETAL: Normal range of motion NEUROLOGIC: Level of Alertness: alert PSYCHIATRIC: Speech is normal SKIN: Warm, dry, and intact Data: CBC: Recent Labs 06/19/22 03006/20/2216 06/21/22 0513 WBC 19.0* 17.8* 16.2* HGB 13.0 13.2 12.4* HCT 38.2* 38.9* 36.1* PLT 325 389 401 BMP: Recent Labs 06/19/22 03006/20/22 0616 06/21/22 0513 NA 126* 126* 126* K 3.9 3.8 4.0 CL 90* 90* 93* CO2 34* 33* 33* BUN 24* 22* 19 CREATININE 0.85 0.81 0.74 GLUCOSE 250* 241* 252* Hepatic: Recent Labs 06/19/22 03006/20/2216 06/21/22 0513 AST 43 43 56* ALT 36 37 30 BILITOT 0.6 0.6 0.7 ALKPHOS 100 97 78 ASSESSMENT AND PLAN: 61 y/o M with an infected acute peripancreatic fluid collection s/p CT guided drain placement 06/10/22 - WBC stable/improving at 16.2 - US abdomen with cholelithiasis without evidence of acute cholecystitis - Drain culture: Gram + cocci initially then addended by lab with no organisms seen- Removed today - CT repeat on 06/13 showing near complete resolution of focal fluid at greater curvature of stomach, anasarca small amount free fluid. Mild increase in atelectasis/infiltrates bilateral lower lobes - IV antibiotics discontinued- ID following - Continue diet as tolerated - Medical mgmt per primary team - Psych following for major depression and suicidal ideation- psych meds restarted - Cardiology following Disposition: Perc drain with continued minimal drainage, removed at bedside today, patient tolerated well. No further surgical planning, general surgery to sign off. Okay for discharge from surgical perspective. Patient counseled on risks, benefits, and alternatives of treatment plan today. Patient states an understanding and willingness to proceed with plan. GERTRUDE Rowell Images from the original note were not included. Hospitalist Progress Note 06/20/2022 Subjective: Admit Date: 06/07/2022 PCP: Demetrius Fenton Room#: [id number]/[id number] A Interval History: No overnight issues. In bed, anxious for discharge denies any chest pain, shortness of breath or nausea or vomiting Sodium again trending down Adult diet Dysphagia - Pureed; Mildly Thick ([place]); Low Fat (less than or equal to 50 gm/day) 24HR INTAKE/OUTPUT: Intake/Output Summary (Last 24 hours) at 06/20/2022 1712 Last data filed at 06/20/2022 0600 Gross per 24 hour Intake 480 ml Output 1235 ml Net -755 ml Past Medical History: Past Medical History: Diagnosis Date Anxiety Ataxia Bipolar disorder (HCC) Chronic pain Constipation Contracture, right hand Depression Dysphagia Dysphagia Dysphonia Edema GERD (gastroesophageal reflux disease) Headache Hemiplegia (CMS/HCC) (HCC) Hyperlipidemia Hypertension Insomnia Muscle weakness Neuropathy TBI (traumatic brain injury) LABS: CBC: Recent Labs 06/18/22 0317 06/19/22 03006/20/22 0616 WBC 20.7* 19.0* 17.8* RBC 4.39* 4.26* 4.33* HGB 13.3 13.0 13.2 HCT 39.5* 38.2* 38.9* MCV 90.0 89.6 90.0 RDW 13.6 13.9 13.7 PLT 304 325 389 BMP: Recent Labs 06/18/2231606/19/22 03006/20/22 0616 NA 129* 126* 126* K 3.8 3.9 3.8 CL 93* 90* 90* CO2 35* 34* 33* BUN 22* 24* 22* CREATININE 0.88 0.85 0.81 GLUCOSE 195* 250* 241* CALCIUM 8.3* 7.9* 8.2* ANIONGAP 2* 1* 3 LIVER PROFILE: Recent Labs 06/18/2231606/19/2230006/20/22 0616 AST 40 43 43 ALT 28 36 37 BILITOT 0.7 0.6 0.6 ALKPHOS 118 100 97 PROT 6.9 6.6 6.7 PT/INR: No results for input(s): PROTIME, INR in the last 72 hours. CARDIAC ENZYMES: No results for input(s): TROPONINI in the last 72 hours. Procalcitonin: No results found for: PROCAL COVID-19 PCR: No results for input(s): COVID19 in the last 72 hours. Objective: Vitals: BP 123/84 Pulse 103 Temp 37.9 C (100.2 F) (Oral) Resp 23 Ht 6' 2 (1.88 m) Wt 250 lb 14.1 oz (114 kg) SpO2 93% BMI 32.21 kg/m Pulse Ox: SpO2 Av.1 % Min: 92 % Max: 95 % Supplemental O2: O2 Flow Rate (L/min): (S) 0 L/min (room air) Physical Exam Constitutional: Appearance: Normal appearance. He is normal weight. HENT: Head: Normocephalic and atraumatic. Nose: Congestion present. No rhinorrhea. Mouth/Throat: Mouth: Mucous membranes are moist. Pharynx: Oropharynx is clear. Eyes: Extraocular Movements: Extraocular movements intact. Conjunctiva/sclera: Conjunctivae normal. Pupils: Pupils are equal, round, and reactive to light. Cardiovascular: Rate and Rhythm: Regular rhythm. Tachycardia present. Heart sounds: No murmur heard. No friction rub. No gallop. Pulmonary: Breath sounds: Wheezing present. No rhonchi or rales. Abdominal: General: Bowel sounds are normal. There is no distension. Palpations: Abdomen is soft. Tenderness: There is no abdominal tenderness. There is no guarding. Musculoskeletal: General: Swelling present. No tenderness, deformity or signs of injury. Cervical back: Normal range of motion. Skin: General: Skin is warm. Findings: No rash. Neurological: General: No focal deficit present. Mental Status: He is alert and oriented to person, place, and time. Mental status is at baseline. Cranial Nerves: No cranial nerve deficit. Motor: No weakness. Medications: Current Facility-Administered Medications: acetaminophen (Tylenol) tablet 650 mg, 650 mg, Oral, q6h PRN, 650 mg at 06/20/22 0624 OR acetaminophen (Tylenol) suppository 650 mg, 650 mg, Rectal, q6h PRN, Brenda Hagan ARIPiprazole (Abilify) tablet 5 mg, 5 mg, Oral, Daily, SIMIN Frausto CNP, 5 mg at 06/20/22827 aspirin chewable tablet 81 mg, 81 mg, Oral, Daily, Brenda Hagan, 81 mg at 06/20/22 0828 bisacodyl (Dulcolax) suppository 10 mg, 10 mg, Rectal, Daily PRN, Mani Edgar DO dextrose 5 % infusion, 100 mL/hr, IntraVENous, PRN, Jennie Castelan PA-C dextrose 50 % solution 12.5 g, 12.5 g, IntraVENous, PRN, Jennie Castelan PA-C divalproex sprinkle (Depakote Sprinkle) DR capsule 250 mg, 250 mg, Oral, 2 times per day, SIMIN Frausto CNP, 250 mg at 06/20/22 08 enoxaparin (Lovenox) syringe 40 mg, 40 mg, SubCUTAneous, Daily, Brenda Hagan, 40 mg at 06/20/22 0828 glucagon (human recombinant) injection 1 mg, 1 mg, IntraMUSCular, PRN, Jennie Castelan PA-C glucose oral gel 15 g, 15 g, Oral, PRN, Jennie Castelan PA-C guaiFENesin (Mucinex) 12 hr tablet 600 mg, 600 mg, Oral, BID, Shreya Cast MD, 600 mg at 06/20/22 0828 influenza vaccine split quadravalent (Flulaval,Fluzone,Fluarix,Afluria) syringe 0.5 mL, 0.5 mL, IntraMUSCular, Once, Brenda Hagan ipratropium-albuterol (Duo-Neb) 0.5-2.5 mg/3 mL nebulizer solution 3 mL, 3 mL, Nebulization, 4x daily PRN, Leobardo Akbar MD, 3 mL at 06/16/22 0110 lidocaine (Uro-Jet) 2 % gel, , Urethral, PRN, Mani Edgar DO melatonin tablet 10 mg, 10 mg, Oral, Nightly, SIMIN Frausto CNP, 10 mg at 06/19/222019 melatonin tablet 6 mg, 6 mg, Oral, Nightly PRN, Brenda Hagan, 6 mg at 06/11/22 2118 memantine (Namenda) tablet 10 mg, 10 mg, Oral, BID, SIMIN Frausto CNP, 10 mg at 06/20/22 0828 miconazole (Micotin) 2 % powder, , Topical, BID, SIMIN Maddox CNP, Given at 06/20/22 0829 naloxone (Narcan) injection 0.4 mg, 0.4 mg, IntraVENous, PRN, Asia Nelson MD nitroglycerin (Nitrostat) SL tablet 0.4 mg, 0.4 mg, SubLINGual, q5 min PRN, Brenda Hagan ondansetron ODT (Zofran-ODT) disintegrating tablet 4 mg, 4 mg, Oral, q8h PRN, 4 mg at 06/13/22 0518 OR ondansetron (Zofran) injection 4 mg, 4 mg, IntraVENous, q6h PRN, Brenda Hagan polyethylene glycol (PEG) 3350 (Miralax) packet 17 g, 17 g, Oral, Daily PRN, Brenda Hagan, 17 g at 06/13/22 0840 senna-docusate sodium (Senokot-S) 8.6-50 MG tablet 2 tablet, 2 tablet, Oral, Daily, Mani Edgar, , 2 tablet at 06/20/22 0828 sodium chloride tablet 3 g, 3 g, Oral, TID WC, Mainor Kim MD, 3 g at 06/20/22 1243 stomahesive in petrolatum (ET Mix), , Topical, PRN, Bertha Rodrigez APRN - ADVANCED REGISTERED NURSE, Given at 06/18/222122 torsemide (Demadex) tablet 10 mg, 10 mg, Oral, BID, Mainor Kim MD, 10 mg at 06/20/22 0828 venlafaxine (Effexor) tablet 75 mg, 75 mg, Oral, BID, Ira Marin APRN - ADVANCED REGISTERED NURSE, 75 mg at 06/20/22 0828 Assessment Data: (CAT1) CBC, BMP, lactate, liver enzymes, UA ordered & reviewed, they show sodium of 126 (CAT3) Mgmt of the patient was discussed with case management [name], who stated, in summary: discharge to SNF (LOW: 2x CAT1 or independent historian MOD: 3x CAT1 or 1x CAT3 EXTENSIVE: 3x CAT1 and 1x CAT3) Acute, acute on chronic, unstable/uncontrolled chronic problems/diagnoses: SIRS Acute pancreatitis with peripancreatic abscess s/p percutaneous drain (/) Acute hypoxic respiratory insufficiency 2/2 coronavirus and pulmonary vascular congestion Coronavirus Acute hyponatremia EDWARDO - resolved Right foot wounds - no active infection Hyperkalemia-resolved Stable chronic problems affecting care, new non-acute diagnoses: HTN HLD Hx of TBI, stroke and residual hemiplegia Chronic headaches Plan As a result of the above findings & factors, the following mgmt was pursued: -Sodium levels are near acceptable, on thick nectar low-fat diet Monitoring sodium and continue fluid restriction - am labs, replace lytes prn - PT/OT/CM/SW - delirium precautions: increase activity and limit nighttime disturbances - DVT prophylaxis: enoxaparin and encourage ambulation Complexity: Acute or chronic illness posing a threat to life (HIGH). Risk: Drug therapy requiring intensive monitoring (HIGH). Advance Directive: Full Code Anticipated Discharge - Date - 06/22/22 - Location - Skilled Facility - Pending the following - possibly tomorrow pending sodium improvement Total time spent (which include face to face and non face to face encounters) : greater than minutes Extended Emergency Contact Information Primary Emergency Contact: Joslyn Hollins Relation: Other Janey Tee MD Division of Hospitalist Medicine Inpatient Medical Services/[facility] - Infectious Diseases Attending Progress Note Subjective: ID following for peripancreatic fluid collection, treated with antibiotic already. No acute events, afebrile, on and off abdominal pain, but overall feels better. Decreased drain output. Objective: Vitals: Patient Vitals for the past 24 hrs: BP Temp Temp src Pulse Resp SpO2 06/20/22 0825 123/84 -- -- 103 23 93 % 06/20/22 0802 118/82 -- -- 100 16 94 % 06/20/22 0713 130/80 -- -- 100 16 95 % 06/20/22 0607 130/80 37.9 C (100.2 F) Oral 104 21 93 % 06/20/22 0002 (!) 140/92 37.3 C (99.2 F) Oral 107 20 92 % 06/19/22 2002 (!) 145/95 36.2 C (97.1 F) Oral 108 18 92 % 06/19/22 1800 -- -- -- 110 25 93 % 06/19/22 1700 -- -- -- 104 20 95 % 06/19/22 1634 -- 37.3 C (99.2 F) Axillary 105 22 95 % 06/19/22 1600 (!) 144/87 -- -- 106 19 94 % Physical Exam Vitals reviewed. Constitutional: General: He is not in acute distress. Appearance: Normal appearance. He is obese. He is not ill-appearing. Cardiovascular: Rate and Rhythm: Normal rate and regular rhythm. Heart sounds: Normal heart sounds. No murmur heard. Pulmonary: Effort: Pulmonary effort is normal. No respiratory distress. Breath sounds: Normal breath sounds. Abdominal: General: There is no distension (hypoactive BS, drain- scant bilious output). Palpations: Abdomen is soft. There is no mass. Tenderness: There is no abdominal tenderness. Musculoskeletal: General: No swelling or tenderness. Skin: General: Skin is dry. Findings: No erythema or rash. Neurological: General: No focal deficit present. Mental Status: He is alert. Psychiatric: Mood and Affect: Mood normal. Thought Content: Thought content normal. Labs: Lab Results Component Value Date/Time NA 126 (L) 06/20/2022 0616 K 3.8 06/20/2022 0616 CL 90 (L) 06/20/2022 0616 CO2 33 (H) 06/20/2022 0616 BUN 22 (H) 06/20/2022 0616 CREATININE 0.81 06/20/2022 0616 CREATININE 0.97 02/19/20202057 GLUCOSE 241 (H) 06/20/2022 0616 CALCIUM 8.2 (L) 06/20/2022 0616 PROT 6.7 06/20/2022 0616 BILITOT 0.6 06/20/2022 0616 ALKPHOS 97 06/20/2022 0616 AST 43 06/20/2022 0616 ALT 37 06/20/2022 0616 PROCAL 0.46 (H) 06/16/2022 0318 PROCAL 0.47 (H) 06/14/2022 0226 PROCAL 0.06 06/10/2022 0229 Lab Results Component Value Date/Time WBC 17.8 (H) 06/20/2022 0616 HGB 13.2 06/20/2022 0616 HCT 38.9 (L) 06/20/2022 0616 PLT 389 06/20/2022 0616 LYMPHOPCT 17.9 (L) 06/20/2022 0616 MONOPCT 6.1 06/20/2022 0616 BASOPCT 0.9 06/20/2022 0616 NEUTROABS 12.8 (H) 06/20/2022 0616 Micro: 06/10 abd fluid cx: neg Resp virus panel: neg 06/15 Resp cx: nl vikram, PNA PCR: Coronavirus 06/15 BC: neg Lines: Perc drain Radiography/Echo/Other: reviewed Antimicrobials, Start/End Dates: Off antibiotics Vancomycin dc'd 06/16 Piptazo to Ertapenem to Meropenem dc'd 06/16 Impression: 1 Acute Pancreatitis with sterile fluid collection drained 06/10/22 with all negative cultures and clinical improvement in strenght, alertness and nutritional intake continue off antibiotics for past 48 hrs. Rising lipase likely due to increasing dietary intake, and WBC elevation of 19 is stable and most likely due to the pancreatic inflammation ??cause of pancreatitis in this ECF patient from [facility]. 2 No evidence of active infection - the covid test done yesterday in F-up of a positive coronavirus on Resp PCR screen was NEGATIVE Had 8 days of empiric antibiotics for suspected infected abscess of pancreas but drainage fluid was sterile 3) electrolyte imbalance & fluid imbalance- followed by renal- worsening 4) diabetic- glucose levels running high in 200 range 5) history of obesity with weight now decreasing 6) R hemiplegia s/p remote CVA 7) severe leg venous stasis dermatitis Plan: Continue to watch off antibiotic. Drain management per Primary team. Will follow peripherally. .. [facility] Progress Note Subjective/ 61 y.o. year old male who we are seeing in consultation for Hyponatremia. NAEON Fatigued, asleep in bed Appetite better per RN No other new issues at this time ROS done and negative unless mentioned as above No change in PFSH All data labs/interval notes and overnight issues are reviewed Objective/ Vitals: 06/20/22 0607 06/20/22 0713 06/20/22 0802 06/20/22 0825 BP: 130/80 130/80 118/82 123/84 BP Location: Left arm Patient Position: Lying Pulse: 104 100 100 103 Resp: 23 Temp: 37.9 C (100.2 F) TempSrc: Oral SpO2: 93% 95% 94% 93% Weight: Height: Intake/Output Summary (Last 24 hours) at 06/20/2022 1357 Last data filed at 06/20/2022 0600 Gross per 24 hour Intake 960 ml Output 1235 ml Net -275 ml ARIPiprazole, 5 mg, Oral, Daily aspirin, 81 mg, Oral, Daily divalproex sprinkle, 250 mg, Oral, 2 times per day enoxaparin, 40 mg, SubCUTAneous, Daily guaiFENesin, 600 mg, Oral, BID influenza vaccine split quadravalent, 0.5 mL, IntraMUSCular, Once melatonin, 10 mg, Oral, Nightly memantine, 10 mg, Oral, BID miconazole, , Topical, BID senna-docusate sodium, 2 tablet, Oral, Daily sodium chloride, 3 g, Oral, TID WC torsemide, 10 mg, Oral, BID venlafaxine, 75 mg, Oral, BID PRN medications: acetaminophen OR acetaminophen, bisacodyl, dextrose, dextrose, glucagon (rDNA), glucose, ipratropium-albuterol, lidocaine, melatonin, naloxone, nitroglycerin, ondansetron ODT OR ondansetron, polyethylene glycol (PEG) 3350, stomahesive in petrolatum Constitutional: fatigued, no apparent distress Eyes: No icterus, no pallor HEENT: no pallor/cyanosis or icterus Cardiovascular: tachycardia+, S1, S2 without m/r/g Respiratory: wheezing throughout GI: +bs, soft, nt Ext: No LE edema Neck: supple, no thyroid enlargement, no JVD elevation Skin: warm, moist, no rashes Results from last 7 days Lab Units 06/20/22 0616 06/19/22 03006/18/22 0317 SODIUM mmol/L 126* 126* 129* POTASSIUM mmol/L 3.8 3.9 3.8 CHLORIDE mmol/L 90* 90* 93* CO2 mmol/L 33* 34* 35* BUN mg/dL 22* 24* 22* CREATININE mg/dL 0.81 0.85 0.88 GLUCOSE mg/dL 241* 250* 195* CALCIUM mg/dL 8.2* 7.9* 8.3* Results from last 7 days Lab Units 06/20/22 0616 06/19/22 0301 06/18/22 0317 WBC AUTO 10*3/uL 17.8* 19.0* 20.7* HEMOGLOBIN g/dL 13.2 13.0 13.3 HEMATOCRIT % 38.9* 38.2* 39.5* PLATELETS AUTO 10*3/uL 389 325 304 Assessment/Plan Acute hyponatremia likely 2/2 excess ADH (valproic acid, venlafaxine, narcotics ) versus poor p.o. solute intake Acute metabolic alkalosis 3. Acute hypoxic respiratory insufficiency 4. Acute pancreatitis 5. Right foot wounds 6. HTN, essential Plan: -Na levels near acceptable -Metabolic alkalosis is resolving -On mildly thick nectar low-fat diet. -Repeat urine studies would be inconclusive given diuresis -May need to back off on NaCl tabs, may also need to consider tolvaptan x1 -C/w fluid restriction: 1.2L -Encourage 3 meals a day high in protein and ensure supplements ordered -Strict I&O -All other management defer to primary/ICU teams -D/w RN -We will follow closely with you Thank you for the consult and the opportunity to participate in the care of this patient. Please do not hesitate to call with any questions or concerns. Brenda Blanco APRN, ADVANCED REGISTERED NURSE [facility], [facility] [phone] office Seen and examined. Agree with above A and p. Need nausea control and more protein intake PO to address hyponatremia. Speech-Language Pathology Facility/Department: [facility] DYSPHAGIA TREATMENT NAME: Moises Madrid : 1960 ADMISSION DATE: 06/07/2022 ADMITTING DIAGNOSIS: has Chest pain; Chest pain, unspecified type; Obesity, Class I, BMI 30-34.9; Hyperlipidemia; Essential hypertension, benign; Depression; Hemiplegia (CMS/HCC) (HCC); and 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 Allergies Allergen Reactions Hydralazine Unknown Sulfamethoxazole-Trimethoprim Unknown Temazepam Unknown Tramadol Unknown Clindamycin Rash Burn, rash Burn, rash Oxygen Level: O2 Device: Room Air Current Diet Level: Dietary Orders (From admission, onward) Start Ordered 06/17/22 1418 Supplement:Breakfast, Lunch; Pro-Stat Modular Until discontinued Question Answer Comment Frequency Breakfast Frequency Lunch Select supplement: Pro-Stat Modular Comment mix with mildly thick lemon water 06/17/22 1420 06/17/22 1330 Adult diet Dysphagia - Pureed; Mildly Thick (Romney); Low Fat (less than or equal to 50 gm/day) Diet effective now Question Answer Comment Diet type Dysphagia - Pureed Fluid consistency Mildly Thick (Romney) GI restriction: Low Fat (less than or equal to 50 gm/day) 06/17/22 1329 06/13/22 1358 Supplement:Lunch, Dinner; Chocolate Magic Cup Until discontinued Question Answer Comment Frequency Lunch Frequency Dinner Select supplement: Chocolate Magic Cup 06/13/22 1357 Pain: RN managing patient pain S: Pt was initially sleeping, woke easily and asked for ICE TEA. O: Assess pt with tolerance and recommendations. A: Pt was taking drinks of mildly thickened tea. Cues for slower rate. Pt. Did drink fast with serial drinks during MBS with only transient penetration during study. Follow up with need for a reswallow every few bites and drinks. He was had some baseline and during drinking coarse cough. Pt then expectorated thick mucous with continued coughing.... then emesis of same thick mucous pudding tinged (took medications in pudding during session). Lunch tray arrived. Pt deferred and deferred additional trial at this time. RN notified via message. She was off the floor with another pt. Gown changed. Recommended Diet and Intervention Diet Solids Recommendation: Dysphagia Pureed (Dysphagia I) Liquid Consistency Recommendation: Mildly Thick (Romney) Recommended Form of Meds: Crushed in puree as able Therapeutic Interventions: Patient/Family education Compensatory Swallowing Strategies Compensatory Swallowing Strategies : External pacing, Upright as possible for all oral intake, Swallow 2 times per bite/sip (reswallow every few bites) Treatment/Goals Encounter Problems Encounter Problems (Active) Swallowing Patient will tolerate recommended food and liquid consistencies without clinical signs and symptoms of aspirations (Not Progressing) Start: 06/11/22 Expected End: 06/25/22 Patient will participate in instrumental assessment of swallowing as appropriate (Not Addressed) Start: 06/11/22 Expected End: 06/25/22 Education Education Given: swallowing strategies, diet recommendations Education Given To: Patient, RN RN name: Kristi Palmer Response: Needs reinforcement P: continue POC. Trial of mechanical soft/minced and moist for advancement. Treatment Plan Requires CAM SPECIALIST Intervention: Yes Frequency/Duration: Frequency of Treatment: 3 days/wk for Duration of Treatment: 2 weeks Therapy Time CAM SPECIALIST Individual Minutes Time In: 1231 Time Out: 1258 Minutes: 27 ALISHA Canchola 06/20/2022 1:24 PM Occupational Therapy Facility/Department: [facility] Occupational Therapy Treatment NAME: Moises Madrid : 1960 Date of Service: 06/20/2022 Discharge Recommendations: Subacute/[facility] Facility Assessment Performance deficits / Impairments: Decreased functional mobility , Decreased ADL status, Decreased ROM, Decreased strength, Decreased sensation, Decreased endurance, Decreased cognition, Decreased safe awareness, Decreased balance, Decreased vision/visual deficit, Decreased high-level IADLs, Decreased fine motor control, Decreased coordination, Decreased posture Assessment: Pt tolerated session fair. Pt completed supine<>sit with Max Ax2, rolling L<>R with Max Ax1. Pt sat EOB with CGA-Min A but faitgued quickly and became not agreeable to attempting STS. Pt is progressing slowly with POC and is well below baseline. Pt would benefit from continued OT to improve activity tolerance, balance, and strength needed for increased indep and safety. Pt is recommended for SNF at D/C, REQUIRES OT FOLLOW-UP: Yes Patient Diagnosis(es): The primary encounter diagnosis was Chest pain, unspecified type. 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 has a past medical history of Anxiety, Ataxia, Bipolar disorder (HCC), Chronic pain, Constipation, Contracture, right hand, Depression, Dysphagia, Dysphagia, Dysphonia, Edema, GERD (gastroesophageal reflux disease), Headache, Hemiplegia (CMS/HCC) (HCC), Hyperlipidemia, Hypertension, Insomnia, Muscle weakness, Neuropathy, and TBI (traumatic brain injury). has a past surgical history that includes Craniotomy. Restrictions Restrictions/Precautions Restrictions/Precautions: Fall Risk, Contact Precautions, General Precautions Required Braces or Orthoses?: No Position Activity Restriction Other position/activity restrictions: O2 n.c., tele, salvador, buckley, drain Cognition/Orientation Overall Cognitive Status: Exceptions Overall Orientation Status: Impaired Subjective Subjective Subjective: Pt supine in bed, agreeable to OT/PT tx General Comments Comments: Pt ok to see per RN Pain Assessment Pain Assessment: 0-10 (Pt reporting BLE weakness, but did not report pain) Objective Balance Sitting Balance: Contact guard assistance (Pt able to sit EOB with CGA-Min A with UE support on bed rail.) Standing Balance: Unable to assess(comment) Bed mobility Rolling to Left: Maximum assistance Rolling to Right: Maximum assistance Supine to Sit: Maximum assistance, 2 Person assistance Sit to Supine: Maximum assistance, 2 Person assistance Scooting: Maximal assistance, 2 Person assistance Comment: Pt completed supine to sit with HOB elevated, use of bed rails, and Max Ax2 for BLE and trunk elevation. Pt HR at 112-116 while completing. Pt able to maintain sititng with Min-CGA with UE support on bed rail. Pt required Max Ax2 to return to supine for BLE and trunk management. Pt required Max Ax2 with tap system to scoot to HOB. Pt required Max Ax1 to roll L<>R for draw pad change. Transfers Sit to stand: Unable to assess Stand to sit: Unable to assess Transfer Comments: Pt intially agreeable to STS. Pt then not agreeable to attempt STS due to BLE weakness. Plan Times per Week: 3 visits Current Treatment Recommendations: Strengthening, ROM, Balance Training, Functional Mobility Training, Endurance Training, Cognitive Reorientation, Modalities (comment), Patient/Caregiver Education & Training, Equipment Evaluation, Education, & procurement, Safety Education & Training, Pain Management, Positioning, Self-Care / ADL, Home Management Training, Neuromuscular Re-education Plan Comment: continue with OT POC Safety Safety Devices in place: Yes Type of devices: All fall risk precautions in place, Left in bed, Bed alarm in place, Call light within reach, Nurse notified, Gait belt, Patient at risk for falls Restraints Initially in place: No AM-PAC Score AM-PAC Inpatient Daily Activity Raw Score: 10 ADL Inpatient CMS G-Code Modifier: CL Goals Encounter Problems Encounter Problems (Active) Balance Patient will maintain static standing balance for 3 minutes with mod assist in order to demonstrate decreased risk of falling. (Not Addressed) Start: 06/12/22 Expected End: 06/26/22 Patient will maintain static sitting balance for 10 minutes with SBA in order to demonstrate improved postural control and prepare for out of bed mobility. (Progressing) Start: 06/12/22 Expected End: 06/26/22 Bathing Patient will bathe body with mod assist (Not Addressed) Start: 06/12/22 Expected End: 06/26/22 Dressing Upper Extremities Patient will complete upper body dressing with mod assist (Not Addressed) Start: 06/12/22 Expected End: 06/26/22 Dressings Lower Extremities Patient will dress lower body with mod assist (Not Addressed) Start: 06/12/22 Expected End: 06/26/22 Eating Patient will feed self with min assist (Not Addressed) Start: 06/12/22 Expected End: 06/26/22 Grooming Patient will complete daily grooming tasks while sitting EOB with min assist (Not Addressed) Start: 06/12/22 Expected End: 06/26/22 Toileting Patient will complete toileting tasks at bedside commode with mod assist. (Not Addressed) Start: 06/12/22 Expected End: 06/26/22 Transfers Patient will complete functional transfer with rolling walker with mod assist in order to prepare for ambulation. (Not Addressed) Start: 06/12/22 Expected End: 06/26/22 Patient will perform bed mobility with mod assist in order to improve independence and prepare for out of bed mobility. (Progressing) Start: 06/12/22 Expected End: 06/26/22 Education Education Given To: Patient Education Provided: OT Role, Plan of Care, Precautions, Equipment Education Provided Comments: bed mobility Education Method: Verbal, Demonstration, Teach Back Barriers to Learning: Cognition Education Outcome: Verbalized understanding, Demonstrated understanding, Continued education needed Therapy Time Individual Co-treatment Time In 1007 Time Out 1024 Minutes 17 Timed Code Treatment Minutes: 17 Minutes (1 Ther Act) GRANT Workam[facility] Physical Therapy Facility/Department: [facility] Physical Therapy Daily Treatment Note NAME: Moises Madrid : 1960 Date of Service: 06/20/2022 Discharge Recommendations: Subacute/[facility] Facility PT Equipment Recommendations Equipment Needed: (TBD at next level of care) Assessment Assessment: Pt still presents with decreased functional mobility. Pt requires max A x 2 for all aspects of bed mobility. Pt requires assist for B LE and trunk elevation. pt requires max A x 1 for rolling and verbal/tactile cue for sequence and initiation. Prep to stand but pt declined to complete even with encouragement. pt completed long arc quad demonstrating ability to complete transfers. pt is still well below baseline and expected to benefit from continued therapy. Requires PT Follow-Up: Yes Patient Diagnosis(es): The primary encounter diagnosis was Chest pain, unspecified type. Diagnoses of Hyperkalemia, EDWARDO (acute kidney injury) (CMS/HCC) ([facility]), Chest pain on breathing, Stable angina pectoris (CMS/HCC) (HCC), Idiopathic chronic venous hypertension of right lower extremity with ulcer ([facility]), Peripheral vascular disease, unspecified ([facility]), Venous insufficiency (chronic) (peripheral), and Non-pressure chronic ulcer of other part of right foot with fat layer exposed ([facility]) were also pertinent to this visit. has a past medical history of Anxiety, Ataxia, Bipolar disorder ([facility]), Chronic pain, Constipation, Contracture, right hand, Depression, Dysphagia, Dysphagia, Dysphonia, Edema, GERD (gastroesophageal reflux disease), Headache, Hemiplegia (CMS/HCC) ([facility]), Hyperlipidemia, Hypertension, Insomnia, Muscle weakness, Neuropathy, and TBI (traumatic brain injury). has a past surgical history that includes Craniotomy. Restrictions Restrictions/Precautions Restrictions/Precautions: Fall Risk, Contact Precautions, General Precautions Position Activity Restriction Other position/activity restrictions: O2 n.c., tele, salvador, buckley, drain, suicidal ideations Subjective General Chart Reviewed: Yes Patient Assessed for Rehabilitation Services: Yes Additional Pertinent Hx: Pt has podiatry consult pending. Deferred transfers at this time. Family / Caregiver Present: No Follows Commands: Impaired Other (Comment): Increased time General Comment Comments: Per RN okay to see. Co-treat with OT due to increased level of assistance. Subjective Subjective: Pt is agreeable to therapy. Pain Assessment Pain Assessment: (c/o of weak B LE but didnt rate pain) Objective Bed mobility Rolling to Left: Maximum assistance Rolling to Right: Maximum assistance Supine to Sit: Maximum assistance, 2 Person assistance Sit to Supine: Maximum assistance, 2 Person assistance Scooting: Maximal assistance, 2 Person assistance Comment: denied dizziness. Pt HOB elevated, cues to try to use bed rails but unable to reach. Pt pulls up on therapist. Pt able to move B LE sightly but needs assist from therapist to complete fully along with trunk elevation into sitting. Pt HR increased to 112-116. Pt able to sit EOB CGA-min A x 1 with BUE support. Extended time to complete. Pt able to complete rolling R and L for new draw pads. Pt able to sit for a total of 5 minutes in prep for transfer but then declined to complete. Transfers Comment: N/A pt declined after 5 minutes sitting EOB Exercises Knee Long Arc Quad: 1 set of 2 reps R and L LE Plan Times per Week: 2 visits Safety Safety Devices Safety Devices in Place: Yes Type of Devices: All fall risk precatuions in place, Call light within reach, Nurse notified, Patient at risk for falls, Left in bed AM-PAC Score AM-PAC Inpatient Mobility Raw Score: 6 Mobility Inpatient CMS G-Code Modifier: CN Goals Encounter Problems Encounter Problems (Active) Balance Patient will maintain static sitting balance for 5 minutes with SBA in order to demonstrate improved postural control and prepare for out of bed mobility. (Progressing) Start: 06/11/22 Expected End: 06/16/22 Exercise Patient will complete lower extremity exercises for 3 sets / 10 reps in order to improve strength and activity tolerance for mobility. (Progressing) Start: 06/11/22 Expected End: 06/16/22 Transfers Patient will perform bed mobility with mod assist in order to improve independence and prepare for out of bed mobility. (Progressing) Start: 06/11/22 Expected End: 06/16/22 Patient will complete sit to stand transfer with max assist to none in order to improve safety and prepare for out of bed mobility. (Not Addressed) Start: 06/11/22 Expected End: 06/16/22 Education Education Given To: Patient Education Provided: Goals, PT Role, Plan of Care, Home Exercise Program, Precautions, Functional Mobility Training, General Safety Education Method: Demonstration, Verbal, Teach Back Barriers to Learning: Cognition Education Outcome: Verbalized understanding, Demonstrated understanding, Continued education needed Therapy Time Individual Co-treatment Time In 1006 Time Out 1024 Minutes 18 Timed Code Treatment Minutes: 15 Minutes (1 ther act) Angle Ignacio PTA [facility] - Surgery [facility] Physicians Surgery Patient Name: Moises Madrid Date: 06/20/2022 Patient seen and examined by myself and I agree with SKY note below Resting in bed and appears comfortable Abdominal complaints about the same Abdomen soft tender epigastric no peritoneal signs minimal output in drainage bag Labs and imaging reviewed Assessment /Plan: Acute pancreatitis with peripancreatic fluid collection status post drainage and no growth seen in fluid Remove drain No acute surgical issues and none anticipated this hospitalization Continue current management per medical team and infectious disease Surgery will continue to follow for now Patient counseled on risks,benefits, and alternatives of treatement plan at length. Patient states an understanding and willingness to proceed with plan. I personally supervised my SKY and/or resident in the evaluation and management of Moises Madrid in the development of a treatment plan for this patient. I personally interviewed the patient and performed an individual physical examination. In addition, I discussed the patient's condition and treatment options with them. I have also reviewed and agree with the past medical, family and social history and care plan unless otherwise noted. All of the patient's questions were answered. This case represents moderate level care including chart review, care coordination and face to face encounter was spent discussing/counseling the patient regarding the care plan for this patient. The patient was seen and examined independently and relevant data reviewed by myself. A full chart review was performed. Remigio Napier MD [facility] General Surgery 3:21 PM 06/20/2022 GENERAL SURGERY Progress Note PATIENT NAME: Moises Madrid TODAY'S DATE: 06/20/2022 SUBJECTIVE: Follow up on pancreatitis. Patient reports minimal abdominal pain. No N/V. No acute events overnight. Has been eating without issue. Pain controlled Yes Other Complaints No Flatus/BM/or Ostomy function {Yes OBJECTIVE: VITALS: BP 123/84 Pulse 103 Temp 37.9 C (100.2 F) (Oral) Resp 23 Ht 6' 2 (1.88 m) Wt 250 lb 14.1 oz (114 kg) SpO2 93% BMI 32.21 kg/m INTAKE/OUTPUT: I/O last 3 completed shifts: In: 2039 (17.9 mL/kg) [P.O.:2039] Out: 3160 (27.8 mL/kg) [Urine:3150 (0.8 mL/kg/hr); Drains:10] Weight: 113.8 kg No intake/output data recorded. REVIEW OF SYSTEMS: Pertinent positives and negatives as per interval history section PHYSICAL EXAM: CONSTITUTIONAL: A&O x 3, LUNGS: Resp effort easy and unlabored, breath sounds normal CARDIOVASCULAR: RRR ABDOMEN: soft non tender, non distended. Perc drain with scant brown drainage in bag. MUSCULOSKELETAL: Normal range of motion NEUROLOGIC: Level of Alertness: alert PSYCHIATRIC: Speech is normal SKIN: Warm, dry, and intact Data: CBC: Recent Labs 06/18/2231606/19/22 03006/20/22 0616 WBC 20.7* 19.0* 17.8* HGB 13.3 13.0 13.2 HCT 39.5* 38.2* 38.9* PLT 304 325 389 BMP: Recent Labs 06/18/2231606/19/2230006/20/22 0616 NA 129* 126* 126* K 3.8 3.9 3.8 CL 93* 90* 90* CO2 35* 34* 33* BUN 22* 24* 22* CREATININE 0.88 0.85 0.81 GLUCOSE 195* 250* 241* Hepatic: Recent Labs 06/18/2231606/19/2230006/20/22 0616 AST 40 43 43 ALT 28 36 37 BILITOT 0.7 0.6 0.6 ALKPHOS 118 100 97 ASSESSMENT AND PLAN: 61 y/o M with an infected acute peripancreatic fluid collection s/p CT guided drain placement 06/10/22 - WBC increased to 17.8 - US abdomen with cholelithiasis without evidence of acute cholecystitis - Drain culture: Gram + cocci initially then addended by lab with no organisms seen- Continue drain mgmt- may be able to remove prior to discharge - CT repeat on 06/13 showing near complete resolution of focal fluid at greater curvature of stomach, anasarca small amount free fluid. Mild increase in atelectasis/infiltrates bilateral lower lobes - IV antibiotics D/C'd- ID following- antibiotic management per them - Continue diet as tolerated - Medical mgmt per primary team - Psych following for major depression and suicidal ideation- psych meds restarted - Cardiology following Disposition: Perc drain scantl brown old blood appearing drainage. No acute surgical indication.Will continue to follow. Patient counseled on risks, benefits, and alternatives of treatment plan today. Patient states an understanding and willingness to proceed with plan. Raimundo Riley, SIMIN - ADVANCED REGISTERED NURSE Cardiology Progress Note Patient Name: Moises Madrid Patient Age: 61 y.o. Date: 06/20/2022 Alert, comfortable stable SUBJECTIVE: pt. In isolation Sob.c/o abd. Pain. No cp. PANCREATITIS. CHOLECYSTITIS. RENAL STONE, Stress . >> nl.. ef=65 % Leucocytosis.>>20. Blood cfvwm=385 mg. Gi consult reviewed. More alert. No cp.pulse ox=96. VITALS BP 130/80 (BP Location: Left arm, Patient Position: Lying) Pulse 104 Temp 37.9 C (100.2 F) (Oral) Resp 21 Ht 6' 2 (1.88 m) Wt 250 lb 14.1 oz (114 kg) SpO2 93% BMI 32.21 kg/m I&O Intake/Output Summary (Last 24 hours) at 06/20/2022 0933 Last data filed at 06/20/2022 0600 Gross per 24 hour Intake 1560 ml Output 2235 ml Net -675 ml OBJECTIVE: 10 systems reviewed as seen below Neck: Neck JVP 0, No carotid bruits, thyroid not enlarged Cardiovascular system: NSR, Short systolic murmur, no gallop Chest: normal breath sounds Abdomen: Abdomen soft/non-tender, no organomegaly, bowel sounds present Extremities: No edema, no varicosity Endocrine : Hypothyroidism No Diabites yes GI system : GIB No Renal : CKD No TUBE BENDER HAND : CVA/TIA No Musculoskeletal system : DJD No LAB Lab Results Component Value Date NA 126 (L) 06/20/2022 K 3.8 06/20/2022 CL 90 (L) 06/20/2022 CO2 33 (H) 06/20/2022 BUN 22 (H) 06/20/2022 CREATININE 0.81 06/20/2022 GLUCOSE 241 (H) 06/20/2022 CALCIUM 8.2 (L) 06/20/2022 Lab Results Component Value Date WBC 17.8 (H) 06/20/2022 HGB 13.2 06/20/2022 HCT 38.9 (L) 06/20/2022 MCV 90.0 06/20/2022 PLT 389 06/20/2022 Lab Results Component Value Date TROPONINI <0.012 06/08/2022 Lab Results Component Value Date TSH 3.216 06/07/2022 No components found for: LABA1C No components found for: EAG Recent Labs 06/20/22 0616 ALKPHOS 97 ALT 37 AST 43 BILITOT 0.6 LIPASE 1,528* Lab Results Component Value Date BNP 49 06/07/2022 CARDIAC TESTING EKG: Encounter Date: 06/07/22 ECG 12 lead Result Value Heart Rate 111 QRSD Interval 94 QT Interval 352 QTC Interval 479 P [place] 43 QRS [place] -36 T Wave [place] 60 OH Interval 160 Impression SINUS TACHYCARDIA LEFT AXIS DEVIATION LATE PRECORDIAL R/S TRANSITION LEFT VENTRICULAR HYPERTROPHY Electronically Signed On 06-10-2022 9:55:05 EST by Dimple Wade Echo: Transthoracic echocardiogram (TTE) complete with contrast, bubble, strain, and 3D PRN Result Date: 06/08/2022 Left Ventricle: Left ventricle size is normal. Normal wall thickness. Normal left ventricular systolic function. EF by 2D Simpsons Biplane is 70%. Normal wall motion. Right Ventricle: Right ventricle is mildly dilated. Normal systolic function. No significant valvular abnormalities. Troponin: Stress Test: Cardiac Cath: IMPRESSION : chest infilterate.>>possible pne./ hypoxia. Abd. Pain. 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 CHOLECYSTITIS, RENAL STONE, HYPONATREMIA, NA-=129. > RESTRICT FLUIDS. Sl=616. Cr0.88/22. na >>low= 126. PLAN : Chest pain>>>Stress test normal., ef=65 %NO CP TODAY, CP DUE TO PANCREATITIS. Noncardiac cp. CARDIAC STATUS IS STABLE. Essential hypertension, benign>>>Meds Hyperlipidemia>>Meds>>Meds Troponin=0.012. ekg no change, Dr. Dickerson and advise changing Zosyn to Ertapenem therapy on 06/14. However, patient vital signs change becoming more tachycardic, tachypneic and febrile ek=647.>>111. BP= 143/85 MMHG. Ef=65 %. Pt/ot. SHELTON HERMAN M.D., [facility] 06/20/2022 Images from the original note were not included. [facility] - Infectious Diseases Attending Progress Note Subjective: Very alert and watching TV. Denies new C/O and denies cough, sob, CP or any abdominal pain. States that he is eating better but appetite still not great. Objective: Vitals: Patient Vitals for the past 24 hrs: BP Temp Temp src Pulse Resp SpO2 06/19/22 1200 (!) 131/90 36.3 C (97.3 F) Oral 110 19 94 % 06/19/22 1100 -- -- -- 110 20 96 % 06/19/22 1000 -- -- -- 108 17 95 % 06/19/22 0900 -- -- -- (!) 111 (!) 27 95 % 06/19/22 0800 (!) 143/85 36.2 C (97.2 F) Oral 104 23 96 % 06/19/22 0700 -- -- -- 101 18 97 % 06/19/22 0402 (!) 134/91 -- -- -- -- -- 06/19/22 0401 (!) 134/91 -- -- -- -- -- 06/19/22 0005 133/77 36.7 C (98.1 F) Oral 107 18 96 % 06/18/22 2100 (!) 126/97 36.8 C (98.2 F) Oral 109 23 96 % 06/18/22 1602 109/70 36.8 C (98.2 F) Oral 106 17 96 % 06/18/22 1543 -- -- -- 102 -- -- Physical Exam Vitals and nursing note reviewed. Constitutional: General: He is not in acute distress. Appearance: He is ill-appearing. He is not toxic-appearing or diaphoretic. HENT: Head: Normocephalic and atraumatic. Nose: Nose normal. Mouth/Throat: Mouth: Mucous membranes are dry. Pharynx: Oropharyngeal exudate present. No posterior oropharyngeal erythema. Eyes: Conjunctiva/sclera: Conjunctivae normal. Pupils: Pupils are equal, round, and reactive to light. Cardiovascular: Rate and Rhythm: Normal rate and regular rhythm. Heart sounds: Normal heart sounds. Pulmonary: Effort: No respiratory distress. Breath sounds: Normal breath sounds. Comments: Shallow breathing lying in bed at 45 degree Very diminished BS No rales or rhonchi and no wheezing appreciated Abdominal: General: Bowel sounds are normal. There is distension. Tenderness: There is no abdominal tenderness. There is no right CVA tenderness or guarding. Genitourinary: Penis: Normal. Comments: Buckley draining dark urine Musculoskeletal: General: No tenderness. Cervical back: Normal range of motion. Right lower leg: No edema. Left lower leg: No edema. Skin: General: Skin is warm. Capillary Refill: Capillary refill takes 2 to 3 seconds. Coloration: Skin is pale. Skin is not jaundiced. Findings: No lesion or rash. Neurological: General: No focal deficit present. Mental Status: He is alert and oriented to person, place, and time. Motor: Weakness present. Psychiatric: Mood and Affect: Mood normal. Comments: Joking around but still with little insight as to why he is here. States that his memory is poor. Labs: Recent Labs 06/17/22 0438 06/18/22 0317 06/19/22 0301 NA 130* 129* 126* K 3.7 3.8 3.9 CL 95* 93* 90* CO2 33* 35* 34* BUN 19 22* 24* CREATININE 0.82 0.88 0.85 GLUCOSE 181* 195* 250* CALCIUM 8.0* 8.3* 7.9* PROT 6.5 6.9 6.6 BILITOT 0.6 0.7 0.6 ALKPHOS 117 118 100 AST 35 40 43 ALT 23 28 36 Recent Labs 06/17/22 0438 06/18/22 0317 06/19/22 0301 WBC 19.8* 20.7* 19.0* HGB 12.6* 13.3 13.0 HCT 37.7* 39.5* 38.2* PLT 264 304 325 LYMPHOPCT 5* 8* 11* MONOPCT 7 4 3 Micro: No results for input(s): COVID19 in the last 72 hours. Neg cultures of blood and pancreatic drainage fluid (06/10/22 Radiography/Echo/Other: Clearing of fluid overload Antimicrobials, Start/End Dates: Day 2 off of antibiotics Impression: 1 acute pancreatitis with sterile fluid collection drained 06/10/22 with all negative cultures and clinical improvement in strenght, alertness and nutritional intake continue off antibiotics for past 48 hrs. Rising lipase likely due to increasing dietary intake, and WBC elevation of 19 is stable and most likely due to the pancreatic inflammation ??cause of pancreatitis in this ECF patient from [facility]. 2 No evidence of active infection - the covid test done yesterday in F-up of a positive coronavirus on Resp PCR screen was NEGATIVE Had 8 days of empiric antibiotics for suspected infected abscess of pancreas but drainage fluid was sterile 3) electrolyte imbalance & fluid imbalance- followed by renal- worsening 4) diabetic- glucose levels running high in 200 range 5) history of obesity with weight now decreasing 6) R hemiplegia s/p remote CVA 7) severe leg venous stasis dermatitis Will be available to re-evaluate if there are new fevers or ID concerns Cardiology Progress Note Patient Name: Moises Madrid Patient Age: 61 y.o. Date: 06/19/2022 Alert, comfortable stable SUBJECTIVE: pt. In isolation Sob.c/o abd. Pain. No cp. PANCREATITIS. CHOLECYSTITIS. RENAL STONE, Stress . >> nl.. ef=65 % Leucocytosis.>>20. Blood mpzdr=557 mg. Gi consult reviewed. Very lethargic & sleepy. No cp.pulse ox=96. VITALS BP (!) 143/85 (BP Location: Left arm, Patient Position: Lying) Pulse (!) 111 Temp 36.2 C (97.2 F) (Oral) Resp (!) 27 Ht 6' 2 (1.88 m) Wt 250 lb 14.1 oz (114 kg) SpO2 95% BMI 32.21 kg/m I&O Intake/Output Summary (Last 24 hours) at 06/19/2022 1122 Last data filed at 06/19/2022 0800 Gross per 24 hour Intake 1680 ml Output 1375 ml Net 305 ml OBJECTIVE: 10 systems reviewed as seen below Neck: Neck JVP 0, No carotid bruits, thyroid not enlarged Cardiovascular system: NSR, Short systolic murmur, no gallop Chest: normal breath sounds Abdomen: Abdomen soft/non-tender, no organomegaly, bowel sounds present Extremities: No edema, no varicosity Endocrine : Hypothyroidism No Diabites yes GI system : GIB No Renal : CKD No TUBE BENDER HAND : CVA/TIA No Musculoskeletal system : DJD No LAB Lab Results Component Value Date NA 126 (L) 06/19/2022 K 3.9 06/19/2022 CL 90 (L) 06/19/2022 CO2 34 (H) 06/19/2022 BUN 24 (H) 06/19/2022 CREATININE 0.85 06/19/2022 GLUCOSE 250 (H) 06/19/2022 CALCIUM 7.9 (L) 06/19/2022 Lab Results Component Value Date WBC 19.0 (H) 06/19/2022 HGB 13.0 06/19/2022 HCT 38.2 (L) 06/19/2022 MCV 89.6 06/19/2022 PLT 325 06/19/2022 Lab Results Component Value Date TROPONINI <0.012 06/08/2022 Lab Results Component Value Date TSH 3.216 06/07/2022 No components found for: LABA1C No components found for: EAG Recent Labs 06/19/22 0301 ALKPHOS 100 ALT 36 AST 43 BILITOT 0.6 LIPASE 1,500* Lab Results Component Value Date BNP 49 06/07/2022 CARDIAC TESTING EKG: Encounter Date: 06/07/22 ECG 12 lead Result Value Heart Rate 111 QRSD Interval 94 QT Interval 352 QTC Interval 479 P [place] 43 QRS [place] -36 T Wave [place] 60 OH Interval 160 Impression SINUS TACHYCARDIA LEFT AXIS DEVIATION LATE PRECORDIAL R/S TRANSITION LEFT VENTRICULAR HYPERTROPHY Electronically Signed On 06-10-2022 9:55:05 EST by Dimple Wade Echo: Transthoracic echocardiogram (TTE) complete with contrast, bubble, strain, and 3D PRN Result Date: 06/08/2022 Left Ventricle: Left ventricle size is normal. Normal wall thickness. Normal left ventricular systolic function. EF by 2D Simpsons Biplane is 70%. Normal wall motion. Right Ventricle: Right ventricle is mildly dilated. Normal systolic function. No significant valvular abnormalities. Troponin: Stress Test: Cardiac Cath: IMPRESSION : chest infilterate.>>possible pne./ hypoxia. Abd. Pain. 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 CHOLECYSTITIS, RENAL STONE, HYPONATREMIA, NA-=129. > RESTRICT FLUIDS. Ch=685. Cr0.88/22. PLAN : Chest pain>>>Stress test normal., ef=65 %NO CP TODAY, CP DUE TO PANCREATITIS. Noncardiac cp. CARDIAC STATUS IS STABLE. Essential hypertension, benign>>>Meds Hyperlipidemia>>Meds>>Meds Troponin=0.012. ekg no change, Dr. Dickerson and advise changing Zosyn to Ertapenem therapy on 06/14. However, patient vital signs change becoming more tachycardic, tachypneic and febrile bq=674.>>111. BP= 143/85 MMHG. SHELTON HERMAN M.D., FACC 06/19/2022 .. [facility] Progress Note Subjective/ 61 y.o. year old male who we are seeing in consultation for Hyponatremia. NAEON Awakens to voice and able to follow commands States he feels tired BP is stable heart rate is slightly tachycardic. No issues with UOP No other new issues at this time ROS done and negative unless mentioned as above No change in PFSH All data labs/interval notes and overnight issues are reviewed Objective/ Vitals: 06/19/22 0402 06/19/22 0700 06/19/22 0800 06/19/22 0900 BP: (!) 134/91 (!) 143/85 BP Location: Left arm Patient Position: Lying Pulse: 101 104 (!) 111 Resp: 18 23 (!) 27 Temp: 36.2 C (97.2 F) TempSrc: Oral SpO2: 97% 96% 95% Weight: Height: Intake/Output Summary (Last 24 hours) at 06/19/2022 0930 Last data filed at 06/19/2022 0800 Gross per 24 hour Intake 1680 ml Output 2115 ml Net -435 ml ARIPiprazole, 5 mg, Oral, Daily aspirin, 81 mg, Oral, Daily divalproex sprinkle, 250 mg, Oral, 2 times per day enoxaparin, 40 mg, SubCUTAneous, Daily furosemide, 40 mg, IntraVENous, BID guaiFENesin, 600 mg, Oral, BID influenza vaccine split quadravalent, 0.5 mL, IntraMUSCular, Once melatonin, 10 mg, Oral, Nightly memantine, 10 mg, Oral, BID miconazole, , Topical, BID senna-docusate sodium, 2 tablet, Oral, Daily sodium chloride, 1 g, Oral, TID WC venlafaxine, 75 mg, Oral, BID PRN medications: acetaminophen OR acetaminophen, bisacodyl, dextrose, dextrose, glucagon (rDNA), glucose, ipratropium-albuterol, lidocaine, melatonin, naloxone, nitroglycerin, ondansetron ODT OR ondansetron, polyethylene glycol (PEG) 3350, stomahesive in petrolatum Constitutional: Alert, awake, no apparent distress Eyes: No icterus, no pallor HEENT: no pallor/cyanosis or icterus Cardiovascular: S1, S2 without m/r/g Respiratory: CTA B without w/r/r GI: +bs, soft, nt Ext: No LE edema Neck: supple, no thyroid enlargement, no JVD elevation Skin: warm, moist, no rashes Results from last 7 days Lab Units 06/19/22 03006/18/2231606/17/228 SODIUM mmol/L 126* 129* 130* POTASSIUM mmol/L 3.9 3.8 3.7 CHLORIDE mmol/L 90* 93* 95* CO2 mmol/L 34* 35* 33* BUN mg/dL 24* 22* 19 CREATININE mg/dL 0.85 0.88 0.82 GLUCOSE mg/dL 250* 195* 181* CALCIUM mg/dL 7.9* 8.3* 8.0* Results from last 7 days Lab Units 06/19/22 03006/18/2231606/17/22437 WBC AUTO 10*3/uL 19.0* 20.7* 19.8* HEMOGLOBIN g/dL 13.0 13.3 12.6* HEMATOCRIT % 38.2* 39.5* 37.7* PLATELETS AUTO 10*3/uL 325 304 264 Assessment/Plan Acute hyponatremia 2/2 unclear ADH stimulus/SIADH. Met alkalosis 3. Acute hypoxic respiratory insufficiency 4. Acute pancreatitis 5. Right foot wounds 6. HTN, essential Plan: -Na levels acceptable -Metabolic alkalosis is resolving sodium is trending in the wrong direction. -Hyponatremia likely 2/2 excess ADH (valproic acid, venlafaxine, narcotics ) versus poor p.o. solute intake On mildly thick nectar low-fat diet. -Scr is stable at baseline and switch to oral diuretics to allow for urine osm to be edith down -UA and urine studies not c/w volume depletion -Will add salt tablets concurrently with diuresis to causenet aquaresis. -Fluid restriction: 1.2L -Volume status: euvolemic -Encourage 3 meals a day high in protein and ensure supplements ordered -Strict I&O -All other management defer to primary/ICU teams -We will follow closely with you Images from the original note were not included. Hospitalist Progress Note 06/19/2022 [phone]: Please page me ([phone]) for patient care issues. [phone]: Please page [facility] [place] night Hospitalist for any issues. Subjective: Admit Date: 06/07/2022 PCP: Demetrius Fenton Room#: 232-/ A Interval History: No overnight events. Feels better this am. Ao x 3. Breathing non-labored and remains on 2 L NC. Denies chest pain, nausea, vomiting, abdominal pain, diarrhea or constipation. Adult diet Dysphagia - Pureed; Mildly Thick (Romney); Low Fat (less than or equal to 50 gm/day) @[id number]@ 24HR INTAKE/OUTPUT: Intake/Output Summary (Last 24 hours) at 06/19/2022 0835 Last data filed at 06/19/2022 0500 Gross per 24 hour Intake 2260 ml Output 2115 ml Net 145 ml Past Medical History: Past Medical History: Diagnosis Date Anxiety Ataxia Bipolar disorder (HCC) Chronic pain Constipation Contracture, right hand Depression Dysphagia Dysphagia Dysphonia Edema GERD (gastroesophageal reflux disease) Headache Hemiplegia (CMS/HCC) (HCC) Hyperlipidemia Hypertension Insomnia Muscle weakness Neuropathy TBI (traumatic brain injury) LABS: CBC: Recent Labs 06/17/2243706/18/2231606/19/22 0301 WBC 19.8* 20.7* 19.0* RBC 4.18* 4.39* 4.26* HGB 12.6* 13.3 13.0 HCT 37.7* 39.5* 38.2* MCV 90.0 90.0 89.6 RDW 13.9 13.6 13.9 PLT 264 304 325 BMP: Recent Labs 06/17/2243706/18/2231606/19/22 0301 NA 130* 129* 126* K 3.7 3.8 3.9 CL 95* 93* 90* CO2 33* 35* 34* BUN 19 22* 24* CREATININE 0.82 0.88 0.85 GLUCOSE 181* 195* 250* CALCIUM 8.0* 8.3* 7.9* ANIONGAP 2* 2* 1* LIVER PROFILE: Recent Labs 06/17/2243706/18/2231606/19/22 0301 AST 35 40 43 ALT 23 28 36 BILITOT 0.6 0.7 0.6 ALKPHOS 117 118 100 PROT 6.5 6.9 6.6 PT/INR: No results for input(s): PROTIME, INR in the last 72 hours. CARDIAC ENZYMES: No results for input(s): TROPONINI in the last 72 hours. Procalcitonin: No results found for: PROCAL COVID-19 PCR: No results for input(s): COVID19 in the last 72 hours. Objective: Vitals: BP 133/77 (BP Location: Left arm) Pulse 107 Temp 36.7 C (98.1 F) (Oral) Resp 18 Ht 6' 2 (1.88 m) Wt 250 lb 14.1 oz (114 kg) SpO2 96% BMI 32.21 kg/m Pulse Ox: SpO2 Av.4 % Min: 96 % Max: 97 % Supplemental O2: O2 Flow Rate (L/min): 2 L/min General appearance: Appears critically ill, better then yesterday Respiratory: Scattered rhonic throughout, improved Cardiovascular: Tachycardic, Regular rhythm with normal S1/S2 without murmurs, rubs or gallops. Abdomen: Soft, non-tender, non-distended with normal bowel sounds. No rebound or guarding. Percutaneous drain in place Musculoskeletal: No clubbing, cyanosis or edema bilaterally. Full range of motion without deformity, +2 peripheral pulses in all extremities. Skin: Bilateral LE skin changes, appear chronic in nature Neurologic: Not following commands. AO x 0. Medications: ARIPiprazole, 5 mg, Oral, Daily aspirin, 81 mg, Oral, Daily divalproex sprinkle, 250 mg, Oral, 2 times per day enoxaparin, 40 mg, SubCUTAneous, Daily furosemide, 40 mg, IntraVENous, BID guaiFENesin, 600 mg, Oral, BID influenza vaccine split quadravalent, 0.5 mL, IntraMUSCular, Once melatonin, 10 mg, Oral, Nightly memantine, 10 mg, Oral, BID miconazole, , Topical, BID senna-docusate sodium, 2 tablet, Oral, Daily sodium chloride, 1 g, Oral, TID WC venlafaxine, 75 mg, Oral, BID Radiology Results (last 21 days) XR chest 1 view [[id number]] Collected: 06/16/22427 Order Status: Completed Updated: 06/16/22516 Narrative: Patient Name: MOISES MADRID : 1960 [facility]#: [id number] Exam Date/Time: 06/16/2022 05:16 Procedure: XR CHEST 1 VIEW Ordering Provider: NELSON HASSAN Reason For Exam: DYSPNEA CLINICAL INFORMATION: Dyspnea [place] 0424 hours is provided and compared with a previous study dated 06/15/2022 FINDINGS: The heart size is normal. There are bibasilar infiltrates and effusions. There is prominence of the interstitium and central pulmonary vasculature. Impression: Prominence of the central pulmonary vasculature consistent with moderate congestive heart failure/fluid overload, slightly improved from the prior exam. Report Dictated on Electronically Signed By: Loki Roberts Electronically Signed Date/Time: 06/16/2022 4:29 AM EST XR chest 1 view [[id number]] Collected: 06/15/221131 Order Status: Completed Updated: 06/15/221133 Narrative: Patient Name: MOISES MADRID : 1960 Exam Date/Time: 06/15/2022 10:31 Procedure: XR CHEST 1 VIEW Ordering Provider: NELSON HASSAN Reason For Exam: Shortness of breath CLINICAL INFORMATION: Shortness of breath. Portable view of the chest at 1010 hours is provided and compared with a previous study dated 06/12/2022. FINDINGS: The heart size is normal. There are bibasilar infiltrates and effusions. There is prominence of the interstitium and central pulmonary vasculature. Impression: 1. Worsening infiltrates. 2. Prominence of the central pulmonary vasculature consistent with moderate congestive heart failure/fluid overload. This has also progressed. Report Dictated on Electronically Signed By: Chaz Poon Electronically Signed Date/Time: 06/15/2022 11:33 AM EST Procedure Component Value Units Date/Time CT abdomen pelvis w contrast [[id number]] Collected: 06/13/222204 Order Status: Completed Updated: 06/13/222220 Narrative: Patient Name: MOISES MADRID : 1960 Exam Date/Time: 06/13/2022 17:39 Procedure: CT ABDOMEN PELVIS W CONTRAST Ordering Provider: EDGAR JONATHAN Reason For Exam: Abdominal pain, acute, nonlocalized CT ABDOMEN AND PELVIS WITH CONTRAST CLINICAL INDICATION: Abdominal pain, acute, nonlocalized TECHNIQUE: CT scan of the abdomen and pelvis, with IV contrast. Multiplanar reformations. 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 COMPARISON: June,. FINDINGS: Abdomen: Visualized lung bases again show partially confluent opacities in the right middle and bilateral lower lobes, with some air bronchograms mildly increased. Very small bilateral pleural effusions, about the same. Interval placement of percutaneous pigtail catheter extending into focal fluid noted previously along the greater curvature the stomach, which is considerably decreased and nearly resolved. Pancreas again prominent and shows diffuse peripancreatic fat stranding or infiltration, mildly increased. Fluid attenuation again seen adjacent to pancreatic tail, extending caudally along the anterior pararenal space and paracolic gutter not appreciably changed. No radiopaque gallstones. Liver shows diffusely decreased attenuation without focal abnormality. Spleen without significant abnormality. Punctate calcification and tiny cyst again noted in the right kidney without significant hydronephrosis. Left kidney grossly unremarkable. Adrenal glands without significant abnormality. Pelvis: Bowel grossly unremarkable. Appendix within normal limits. Very small amount of nonspecific, free fluid noted along right paracolic gutter and in the pelvis. No discrete abscess. Abdominal aorta is nonaneurysmal. Buckley catheter noted in decompressed urinary bladder. Axial skeleton grossly intact, with degenerative change again noted in the lumbar spine. Diffuse subcutaneous edema in the trunk and pelvis, new in the interval. Impression: 1. Interval placement of percutaneous pigtail catheter and near complete resolution of focal fluid noted previously along the greater curvature of the stomach. 2. Findings compatible with pancreatitis, mildly increased in the interval. 3. Hepatic steatosis, and nonobstructing right renal calcification. 4. Very small amount of nonspecific free fluid in the abdomen and pelvis, similar to comparison. Anasarca, new in the interval. 5. Mild atelectasis or infiltrates in right middle and bilateral lower lobes, mildly increased in the interval. Report Dictated on Electronically Signed By: Merrick Lopez Electronically Signed Date/Time: 06/13/2022 10:20 PM EST [employer] abdomen limited [[id number]] Collected: 06/13/22823 Order Status: Completed Updated: 06/13/22829 Narrative: Patient Name: MOISES MADRID : 1960 Exam Date/Time: 06/13/2022 07:20 Procedure: US ABDOMEN LIMITED Ordering Provider: CORTEZ JONATHAN Reason For Exam: PANCREATITIS - ACUTE ULTRASOUND ABDOMEN RUQ CLINICAL HISTORY:PANCREATITIS - ACUTE COMPARISON: CT 06/10/2022 TECHNIQUE: Grayscale sonographic images were obtained of the right upper quadrant. Color Doppler was utilized. FINDINGS: Portions the exam are limited by overlying bowel gas, patient immobility and body habitus, as well as due to indwelling epigastric drainage catheter. Liver: Left lobe is not well visualized. Right hepatic parenchymal echotexture is slightly heterogeneous and increased. No discrete lesions on submitted images. Biliary system: No sonographic evidence of intrahepatic biliary ductal dilatation. The common bile duct is normal in caliber and measures 2 mm. Gallbladder: Gallbladder appears well-distended. Several small stones are present. No pericholecystic fluid or gallbladder wall thickening. There was a negative sonographic Cole's sign reported by the registered vascular technologist (rvt). Pancreas: Obscured by bowel gas. Right Kidney: Largely obscured by bowel gas. Additional findings: Trace perihepatic ascites. Impression: 1. Technically limited evaluation. In particular the left hepatic lobe, pancreas, and right kidney are not well visualized or evaluated. 2. Cholelithiasis without sonographic evidence of acute cholecystitis. 3. No biliary ductal dilatation Report Dictated on Electronically Signed By: Cheko Chapa Electronically Signed Date/Time: 06/13/2022 8:29 AM EST XR chest 1 view [[id number]] Collected: 06/12/22 1254 Order Status: Completed Updated: 06/12/22 1257 Narrative: Patient Name: MOISES MADRID : 1960 [facility]#: [id number] Exam Date/Time: 06/12/2022 12:43 Procedure: XR CHEST 1 VIEW Ordering Provider: EDGAR JONATHAN Reason For Exam: DYSPNEA EXAMINATION: XR chest AP. EXAM DATE & TIME: 06/12/2022 12:43 PM EST INDICATION: DYSPNEA ADDITIONAL INFORMATION: 61-year-old male with dyspnea presents for evaluation COMPARISON: Chest radiographs dated 06/10/2022, 06/07/2022 and 07/27/2013 TECHNIQUE: Frontal view of the chest was obtained. FINDINGS: Lines/support devices: Cardiac leads and defibrillator pads project over the chest, somewhat limiting evaluation. Cardiomediastinal silhouette: Obscured. Lungs/pleura: There are low lung volumes. Bibasilar scarring/atelectasis is seen. Indistinctness of the costophrenic angles is noted. No evidence of pneumothorax. Osseous structures: Degenerative changes of the spine and shoulders are seen. No acute osseous abnormality is demonstrated. The bones are osteopenic. Other findings: None. Impression: Low lung volumes with bibasilar scarring/atelectasis and indistinctness of the costophrenic angles, suggestive of small bilateral pleural effusions. Report Dictated on Electronically Signed By: Asad Mccarthy Electronically Signed Date/Time: 06/12/2022 12:56 PM EST XR foot 3+ views right [[id number]] Collected: 06/12/22 1250 Order Status: Completed Updated: 06/12/221252 Narrative: Patient Name: MOISES MADRID : 1960 Exam Date/Time: 06/12/2022 12:44 Procedure: XR FOOT 3+ VIEWS RIGHT Ordering Provider: EDGAR JONATHAN Reason For Exam: r/o OM RIGHT FOOT: CLINICAL INDICATION: Possible osteomyelitis. TECHNIQUE: AP, Lat, Oblique COMPARISON: 05/09/2011 FINDINGS: There is no evidence for fracture or dislocation. Degenerative changes in the midfoot and first MTP joint. Dense Achilles tendon calcifications again seen. Dorsal soft tissue swelling overlying the mid foot. No evidence of soft tissue gas, osseous erosive change or periostitis. Note that if there is persistent concern for osteomyelitis, MRI is a more sensitive means of evaluation. Report Dictated on Electronically Signed By: Ezra Guthrie Electronically Signed Date/Time: 06/12/2022 12:[address] guided abscess fluid collection drainage [[id number]] Collected: 06/10/22 1607 Order Status: Completed Updated: 06/10/22 1610 Narrative: Patient Name: MOISES MADRID : 1960 Exam Date/Time: 06/10/2022 14:50 Procedure: CT GUIDED ABSCESS FLUID COLLECTION DRAINAGE Ordering Provider: EDGAR JONATHAN Reason For Exam: PROCEDURE: Drainage catheter placement Procedural Personnel Attending physician(s): Jus Barlow Indication: Peripancreatic fluid collection Additional clinical history: None Complications: No immediate complications. Impression: Percutaneous placement of a 10 Prydeinig drainage catheter into peripancreatic fluid collection, yielding 150 mL of bloody fluid. __ PROCEDURE SUMMARY: - Intraperitoneal drainage catheter placement under CT guidance - Additional procedure(s): None PROCEDURE DETAILS: Pre-procedure Consent: Informed consent for the procedure including risks, benefits and alternatives was obtained and time-out was performed prior to the procedure. Preparation: The site was prepared and draped using maximal sterile barrier technique including cutaneous antisepsis. Anesthesia/sedation Moderate sedation was provided under my supervision with patient monitored by a trained radiology nurse. Total sedation time of 25 minutes. Drainage catheter placement The patient was positioned supine. Initial imaging was performed. Local anesthesia was administered. The fluid collection was accessed using an access needle followed by wire insertion and serial dilation and a drainage catheter was placed. Position of the drainage catheter within the fluid collection was confirmed. - Initial imaging findings: Peripancreatic fluid collection - Drainage catheter placed: 10 Prydeinig APD - External catheter securement: Non-absorbable suture and adhesive anchoring device - Post-drainage imaging findings: Drainage catheter in adequate position with pigtail in the most superior aspect of the fluid collection. Contrast Contrast agent: None Contrast volume (mL): [address] dose length product (mGy-cm): 811 Additional Details Additional description of procedure: None Equipment details: None Specimens removed: Aspirated fluid was sent for analysis. Estimated blood loss (mL): Less than 10 Report Dictated on Electronically Signed By: Jus Barlow Electronically Signed Date/Time: 06/10/2022 4:[address] abdomen pelvis wo IV contrast [[id number]] Collected: 06/10/22914 Order Status: Completed Updated: 06/10/22930 Narrative: Patient Name: MOISES MADRID : 1960 [facility]#: [id number] Exam Date/Time: 06/10/2022 08:50 Procedure: CT ABDOMEN PELVIS WO IV CONTRAST Ordering Provider: EDGAR JONATHAN Reason For Exam: Abdominal pain, acute, nonlocalized CT ABDOMEN AND PELVIS WITHOUT IV CONTRAST CLINICAL INDICATION: Acute abdominal pain, nonlocalized TECHNIQUE: Axial CT images through the through the abdomen and pelvis with 3 mm reconstruction without intravenous intravenous contrast media. Enteric contrast was not administered. Coronal and sagittal reconstructions included. 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 COMPARISON: None. FINDINGS: Examination is somewhat limited in evaluation of solid organs and vascular structures due to the lack of intravenous contrast. Additional limitations: Somewhat limited evaluation of the GI tract without enteric contrast. Mild motion and streak artifact limits evaluation to some extent Lung base: Trace to small pleural effusions with mild bibasilar atelectasis/pneumonia. Liver: Hepatic steatosis. Gallbladder/Biliary tree: Gallbladder is somewhat inconspicuous possibly due to the presence of sludge or less likely calculi.. No intra or extrahepatic biliary ductal dilatation Spleen: Within normal limits. Pancreas: Pancreas is heterogeneous with surrounding poorly defined and more confluent fluid particularly at the level of the pancreatic body and tail with extension along the anterior left pararenal space as well as into the lesser sac. Small pocket of loculated fluid along the greater curvature on series 3 image 46 measuring 5.0 x 3.6 cm with distal extension. Fluid demonstrates borderline complexity. Adrenals: No discrete mass or nodule detected. Kidneys/pelvic organs: No obstructive uropathy. Punctate nonobstructing calculus right kidney. Urinary bladder is collapsed limiting evaluation. Borderline prostamegaly. GI tract: A few prominent air distended loops of small bowel without evidence of mechanical obstruction. Normal appendix is identified. Mild to moderate amount retained colonic stool more so proximally. No colonic wall thickening or pericolonic stranding. . Peritoneal cavity/retroperitoneum: No pneumatosis or pneumoperitoneum. No bulky adenopathy. Small amount of lower abdominal/pelvic ascites which appears to be simple in complexity. Vasculature: Normal caliber abdominal aorta. Osseous structures/soft tissues: Degenerative spondylosis in the visualized spine with mild scoliotic curvature. Suspected developmental spinal canal narrowing. Tiny left greater than right fat-containing inguinal hernia without bowel involvement. Trace body wall edema. Gynecomastia Impression: 1. Acute pancreatitis with surrounding poorly defined and more confluent fluid particularly at the level of the pancreatic body and tail with extension along the anterior left pararenal space as well as into the lesser sac. Small pocket of loculated fluid along the greater curvature of the stomach measures 5.0 x 3.6 cm with distal extension. Fluid demonstrates borderline complexity. 2. Nonobstructing punctate right renal calculus. 3. Trace to small pleural effusions with mild bibasilar atelectasis/pneumonia. 4. Questionable trace gallbladder sludge/calculi. Report Dictated on Electronically Signed By: Cheko Chapa Electronically Signed Date/Time: 06/10/2022 9:30 AM EST XR chest 1 view [[id number]] Collected: 06/10/22843 Order Status: Completed Updated: 06/10/22850 Narrative: Patient Name: MOISES MADRID : 1960 Exam Date/Time: 06/10/2022 08:36 Procedure: XR CHEST 1 VIEW Ordering Provider: EDGAR JONATHAN Reason For Exam: DYSPNEA CHEST RADIOGRAPH CLINICAL INDICATION: Dyspnea TECHNIQUE: AP COMPARISON: 05/30/2022 chest radiograph FINDINGS: Cardiomediastinal: Cardiomediastinal silhouette is normal in size and configuration. Lungs: There are low lung volumes with bronchovascular crowding. Questionable retrocardiac opacity. No pleural effusion or pneumothorax. Osseous structures: No acute osseous abnormality. Impression: Questionable retrocardiac opacity, please correlate with clinical concern for developing pneumonia. Low lung volumes with bronchovascular crowding. Report Dictated on Electronically Signed By: Barry Castillo Electronically Signed Date/Time: 06/10/2022 8:50 AM EST XR chest 1 view [[id number]] Collected: 06/07/222325 Order Status: Completed Updated: 06/07/222327 Narrative: Patient Name: MOISES MADRID : 1960 Exam Date/Time: 06/07/2022 23:25 Procedure: XR CHEST 1 VIEW Ordering Provider: CASTELAN NICOLE Reason For Exam: chest pain CHEST - PORTABLE: CLINICAL INDICATION: Chest pain. . TECHNIQUE: Portable AP COMPARISON: 07/27/2013 Impression: FINDINGS/IMPRESSION: Limitations: Slightly limited by patient positioning Lines, tubes, and devices: None Cardiomediastinal silhouette: Heart size is within normal limits. Lungs/Pleura: Elevation of the right hemidiaphragm, similar to prior study. Borderline central pulmonary vascular congestion. No consolidation, sizable pleural effusions, or pneumothorax. Osseous structures: Degenerative spondylosis in the visualized spine. 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 Soft tissues: No soft tissue abnormality is detected. Report Dictated on Electronically Signed By: Cheko Chapa Electronically Signed Date/Time: 06/07/2022 11:27 PM EST Assessment SIRS Acute pancreatitis with peripancreatic abscess s/p percutaneous drain (06/10) Acute hypoxic respiratory insufficiency 2/2 coronavirus and pulmonary vascular congestion Coronavirus Acute hyponatremia EDWARDO - resolved Right foot wounds - no active infection Hyperkalemia-resolved HTN HLD Hx of TBI, stroke and residual hemiplegia Chronic headaches Mood disorder Medical Decision Making -Patient presents to [facility] ED from [facility] on [facility] with complaints of chest pain. Symptoms started day before admission given a PPI at the facility with no relief. In the ED, vital signs were stable. Labs are consistent with a potassium of 6.0, BUN 41, Scr 1.38, troponin negative x1, Lipase 3500, WBC 10.4, COVID/flu/RSV negative, chest x-ray showed borderline central pulmonary vascular congestion. EKG sinus tachycardia with no acute ST or T wave changes.. Given that nitroglycerin and Nitropaste in the ER with resolution of symptoms. Admitted under hospitalist group in the HICU for further evaluation. Underwent stress test which was negative and echocardiogram shows an EF of 70%. Cardiology consulted and recommends medical management with no further intervention. - Patient develop worsening abdominal pain and CT abdomen showed inflammation around the pancreas with loculated fluid collection 5 x 3.6 cm around the greater curvature of the stomach concerning for an abscess. General surgery consulted and recommended IR percutaneous drain which was done on 06/10. ID and GI consulted given high complexity and placed on empiric antibiotics. No acute surgical intervention recommended. - Patient subsequently developed hypoxia and chest x-ray showed questionable right retro- cardiac opacity which could be due to pneumonia. Discussed with Dr. Dickerson and advise changing Zosyn to Ertapenem therapy on 06/14. However, patient vital signs change becoming more tachycardic, tachypneic and febrile. ID changed him to Vanco and meropenem. Chest x-ray obtained consistent with pulmonary vascular congestion and volume overload. Started on IV Lasix with nephrology consulted in the setting of hyponatremia. Evaluated by ICU on 06/16 and deem appropriate for floor after given Narcan. Change to oral Demedex on 06/19 as patient euvolemic on exam and sodium trending down. Started on salt tabs. CXR reviewed today and better - Patient received 8 days of abx and ID discontinued current regimen on 06/17. Sx likely related to acute pancreatitis. Advise to monitor off abx. Underwent MBS on 06/17 consistent with decreased bolus formation with spillage to floor of mouth and to vallecula prior to swallow; advised puree diet and mildly thick liquids. Continue to monitor and will need placement -am labs, replace lytes prn -increase activity -DVT prophylaxis: [x] Lovenox [] Heparin [] SCDs [x] Encourage ambulation [] Already on Anticoagulation Anticipated Discharge - Date - 06/21 - Location - Skilled Facility - Pending the following - Specialist clearance Total time spent (which include face to face and non face to face encounters) : 55 minutes Toxic drug monitoring/narrow therapeutic index drug monitoring : # Drug name : Lovenox # Route administered : SubQ # Method of monitoring : CBC Extended Emergency Contact Information Primary Emergency Contact: Joslyn Hollins Relation: Other Asia Nelson MD Division of Hospitalist Medicine Inpatient Medical Services/[facility] [place] [facility]: Epic chat Images from the original note were not included. [facility] - Infectious Diseases Attending Progress Note [place]: 61 y/o s/p remote CVA and hemiplegia presented from [facility] on 06/07/22 with acute substernal CP and work up disclosed acute pancreatitis- he denies prior history or excess ETOH use. Had a collection of fluid drained on 06/09/22 with negative cultures noted. He had 8 d of antibiotics which were discontinued yesterday Subjective: alert, talks in whispers but denies any pain. Denies diarrhea or thrush and denies any rashes post antibiotics Objective: Very appropriate and pleasant Vitals: Patient Vitals for the past 24 hrs: BP Temp Temp src Pulse Resp SpO2 Height 06/18/22 1012 -- -- -- (!) 119 24 97 % -- 06/18/22 0800 126/83 36.7 C (98 F) Oral 107 17 96 % -- 06/18/22 0314 125/76 37.4 C (99.4 F) Oral 110 20 94 % -- 06/17/22 2316 (!) 141/94 36.8 C (98.2 F) Oral (!) 115 23 96 % -- 06/17/22 1938 138/88 37.8 C (100.1 F) Oral 110 21 98 % -- 06/17/22 1646 134/81 36.7 C (98 F) Oral 106 20 97 % -- 06/17/22 1602 138/85 -- -- 109 22 95 % -- 06/17/22 1422 -- -- -- -- -- -- 1.88 m (6' 2) 06/17/22 1215 117/86 36.8 C (98.2 F) Oral 110 20 96 % -- Physical Exam Vitals and nursing note reviewed. Constitutional: Appearance: He is ill-appearing. He is not toxic-appearing. Comments: Easily awakens from sleep and has generalized extreme weakness with R hemiplegia (chronic) Skin with IV's in arms- sites benign Has moist edentulous mouth without thrush Neck supple without adenopathy Lungs quiet without rales or rhonchi and no coughing noted over 15 min exam but nurse notes that he had to be suctioned last pm so CXR done Oxygenating on NC O2 Ate very well this am, independently. Noted scant (3cc) drainage from pancreatic tube in upper abdomen (mid) Has non-purulent dark maroon discoloration. Abdomen is distended and firm but non tender to palpation. Cardiovascular: Heart sounds: Normal heart sounds. No murmur heard. Pulmonary: Effort: No respiratory distress. Breath sounds: No wheezing, rhonchi or rales. Genitourinary: Penis: Normal. Neurological: Mental Status: He is alert. Buckley draining clear urine with good urinary output. Legs with severe venous stasis discoloration and very cold appearance with flaccid R leg with no open ulcers and poor circulation of both feet Labs: Recent Labs 06/16/2231706/17/2243706/18/22316 NA 132* 130* 129* K 4.0 3.7 3.8 CL 95* 95* 93* CO2 32* 33* 35* BUN 16 19 22* CREATININE 0.80 0.82 0.88 GLUCOSE 173* 181* 195* CALCIUM 8.1* 8.0* 8.3* PROT 6.2* 6.5 6.9 BILITOT 0.7 0.6 0.7 ALKPHOS 114 117 118 AST 36 35 40 ALT 25 23 28 PROCAL 0.46* -- -- Recent Labs 06/16/2231706/17/2243706/18/22316 WBC 19.9* 19.8* 20.7* HGB 12.6* 12.6* 13.3 HCT 37.8* 37.7* 39.5* PLT 229 264 304 LYMPHOPCT 3* 5* 8* MONOPCT 5 7 4 Micro: No results for input(s): COVID19 in the last 72 hours. Coronavirus noted on Resp PCR of 06/15 but not of 06/11. 06/15 Resp w/many PMN and mod epi with rare GPC and GNDC Lines: 2 peripherals - benign Buckley catheter Radiography/Echo/Other: CXR of very poor inspiratory effort with no notable infiltrate in upper lobs Antimicrobials, Start/End Dates: Day 1 off of antibiotics Impression: 1 appears stable w/persistent leukocytosis of 20K and high lipase off of antibiotics for empiric therapy with acute pancreatitis with sterile fluid collection Cultures remain negative and he is afebrile and now eating very well -will continue to monitor as Procalcitoni was high 0.46 2 d ago. 2 No evidence of active infection other than a recent resp PCR positive for Coronavirus and some resp distress last pm resolved with suctioning Will check rapid covid test 3) electrolyte imbalance & fluid imbalance- followed by renal 4) diabetic 5) history of obesity with weight now decreasing 6) R hemiplegia 7) severe leg venous stasi Total time 56 minutes on this day of encounter includes chart review in PICU, discussion with nurse, coordinating plan of care, record and documentation review before and after visit including documentation and time not explicitly included on EMR time stamp for accounting for open encounter. Cardiology Progress Note Patient Name: Moises Madrid Patient Age: 61 y.o. Date: 06/18/2022 Alert, comfortable stable SUBJECTIVE: pt. In isolation Sob.c/o abd. Pain. No cp. PANCREATITIS. CHOLECYSTITIS. RENAL STONE, Stress . >> nl.. ef=65 % Leucocytosis.>>20. Blood kguzb=646 mg. Gi consult reviewed. Very lethargic & sleepy. No cp.pulse ox=96. VITALS BP 126/83 (BP Location: Right arm) Pulse (!) 119 Temp 36.7 C (98 F) (Oral) Resp 24 Ht 6' 2 (1.88 m) Wt 250 lb 14.1 oz (114 kg) SpO2 97% BMI 32.21 kg/m I&O Intake/Output Summary (Last 24 hours) at 06/18/2022 1037 Last data filed at 06/18/2022 1012 Gross per 24 hour Intake 550 ml Output 2665 ml Net -2115 ml OBJECTIVE: 10 systems reviewed as seen below Neck: Neck JVP 0, No carotid bruits, thyroid not enlarged Cardiovascular system: NSR, Short systolic murmur, no gallop Chest: normal breath sounds Abdomen: Abdomen soft/non-tender, no organomegaly, bowel sounds present Extremities: No edema, no varicosity Endocrine : Hypothyroidism No Diabites yes GI system : GIB No Renal : CKD No TUBE BENDER HAND : CVA/TIA No Musculoskeletal system : DJD No LAB Lab Results Component Value Date NA 129 (L) 06/18/2022 K 3.8 06/18/2022 CL 93 (L) 06/18/2022 CO2 35 (H) 06/18/2022 BUN 22 (H) 06/18/2022 CREATININE 0.88 06/18/2022 GLUCOSE 195 (H) 06/18/2022 CALCIUM 8.3 (L) 06/18/2022 Lab Results Component Value Date WBC 20.7 (H) 06/18/2022 HGB 13.3 06/18/2022 HCT 39.5 (L) 06/18/2022 MCV 90.0 06/18/2022 PLT 304 06/18/2022 Lab Results Component Value Date TROPONINI <0.012 06/08/2022 Lab Results Component Value Date TSH 3.216 06/07/2022 No components found for: LABA1C No components found for: EAG Recent Labs 06/18/22 0317 ALKPHOS 118 ALT 28 AST 40 BILITOT 0.7 LIPASE 1,360* Lab Results Component Value Date BNP 49 06/07/2022 CARDIAC TESTING EKG: Encounter Date: 06/07/22 ECG 12 lead Result Value Heart Rate 111 QRSD Interval 94 QT Interval 352 QTC Interval 479 P [place] 43 QRS [place] -36 T Wave [place] 60 OH Interval 160 Impression SINUS TACHYCARDIA LEFT AXIS DEVIATION LATE PRECORDIAL R/S TRANSITION LEFT VENTRICULAR HYPERTROPHY Electronically Signed On 06-10-2022 9:55:05 EST by Dimple Wade Echo: Transthoracic echocardiogram (TTE) complete with contrast, bubble, strain, and 3D PRN Result Date: 06/08/2022 Left Ventricle: Left ventricle size is normal. Normal wall thickness. Normal left ventricular systolic function. EF by 2D Simpsons Biplane is 70%. Normal wall motion. Right Ventricle: Right ventricle is mildly dilated. Normal systolic function. No significant valvular abnormalities. Troponin: Stress Test: Cardiac Cath: IMPRESSION : chest infilterate.>>possible pne./ hypoxia. Abd. Pain. 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 CHOLECYSTITIS, RENAL STONE, HYPONATREMIA, NA-=129. > RESTRICT FLUIDS. Kq=705. Cr0.88/22. PLAN : Chest pain>>>Stress test normal., ef=65 %NO CP TODAY, Noncardiac cp. CARDIAC STATUS IS STABLE. Essential hypertension, benign>>>Meds Hyperlipidemia>>Meds>>Meds Troponin=0.012. ekg no change, Dr. Dickerson and advise changing Zosyn to Ertapenem therapy on 06/14. However, patient vital signs change becoming more tachycardic, tachypneic and febrile yc=635. SHELTON HERMAN M.D., FACC 06/18/2022 Images from the original note were not included. Hospitalist Progress Note 06/18/2022 [phone]: Please page me ([phone]) for patient care issues. [phone]: Please page [facility] Hospitalist for any issues. Subjective: Admit Date: 06/07/2022 PCP: Demetrius Fenton Room#: 232-06/232-06 A Interval History: No overnight events. Patient AO x 3 this am. Feels much better. Tolerated breakfast. States that he feels improved. Remains tachycardic and on 4 L NC. Denies chest pain, nausea, vomiting, abdominal pain, diarrhea or constipation. Adult diet Dysphagia - Pureed; Mildly Thick (Romney); Low Fat (less than or equal to 50 gm/day) @[id number]@ 24HR INTAKE/OUTPUT: Intake/Output Summary (Last 24 hours) at 06/18/2022 0914 Last data filed at 06/18/2022 0620 Gross per 24 hour Intake 550 ml Output 2925 ml Net -2375 ml Past Medical History: Past Medical History: Diagnosis Date Anxiety Ataxia Bipolar disorder (HCC) Chronic pain Constipation Contracture, right hand Depression Dysphagia Dysphagia Dysphonia Edema GERD (gastroesophageal reflux disease) Headache Hemiplegia (CMS/HCC) ([facility]) Hyperlipidemia Hypertension Insomnia Muscle weakness Neuropathy TBI (traumatic brain injury) LABS: CBC: Recent Labs 06/16/22 0318 06/17/22 0438 06/18/22 0317 WBC 19.9* 19.8* 20.7* RBC 4.11* 4.18* 4.39* HGB 12.6* 12.6* 13.3 HCT 37.8* 37.7* 39.5* MCV 92.0 90.0 90.0 RDW 13.6 13.9 13.6 PLT 229 264 304 BMP: Recent Labs 06/16/2231706/17/2243706/18/22316 NA 132* 130* 129* K 4.0 3.7 3.8 CL 95* 95* 93* CO2 32* 33* 35* BUN 16 19 22* CREATININE 0.80 0.82 0.88 GLUCOSE 173* 181* 195* CALCIUM 8.1* 8.0* 8.3* ANIONGAP 5 2* 2* LIVER PROFILE: Recent Labs 06/16/2231706/17/2243706/18/22316 AST 36 35 40 ALT 25 23 28 BILITOT 0.7 0.6 0.7 ALKPHOS 114 117 118 PROT 6.2* 6.5 6.9 PT/INR: No results for input(s): PROTIME, INR in the last 72 hours. CARDIAC ENZYMES: No results for input(s): TROPONINI in the last 72 hours. Procalcitonin: Lab Results Component Value Date PROCAL 0.46 (H) 06/16/2022 COVID-19 PCR: No results for input(s): COVID19 in the last 72 hours. Objective: Vitals: BP 126/83 (BP Location: Right arm) Pulse 107 Temp 37.4 C (99.4 F) (Oral) Resp 17 Ht 6' 2 (1.88 m) Wt 250 lb 14.1 oz (114 kg) SpO2 96% BMI 32.21 kg/m Pulse Ox: SpO2 Av % Min: 94 % Max: 98 % Supplemental O2: O2 Flow Rate (L/min): 4 L/min General appearance: Appears critically ill, better then yesterday Respiratory: Scattered rhonic throughout, improved Cardiovascular: Tachycardic, Regular rhythm with normal S1/S2 without murmurs, rubs or gallops. Abdomen: Soft, non-tender, non-distended with normal bowel sounds. No rebound or guarding. Percutaneous drain in place Musculoskeletal: No clubbing, cyanosis or edema bilaterally. Full range of motion without deformity, +2 peripheral pulses in all extremities. Skin: Bilateral LE skin changes, appear chronic in nature Neurologic: Not following commands. AO x 0. Medications: ARIPiprazole, 5 mg, Oral, Daily aspirin, 81 mg, Oral, Daily divalproex sprinkle, 250 mg, Oral, 2 times per day enoxaparin, 40 mg, SubCUTAneous, Daily furosemide, 40 mg, IntraVENous, BID guaiFENesin, 600 mg, Oral, BID influenza vaccine split quadravalent, 0.5 mL, IntraMUSCular, Once melatonin, 10 mg, Oral, Nightly memantine, 10 mg, Oral, BID miconazole, , Topical, BID senna-docusate sodium, 2 tablet, Oral, Daily venlafaxine, 75 mg, Oral, BID Radiology Results (last 21 days) XR chest 1 view [[id number]] Collected: 06/16/22427 Order Status: Completed Updated: 06/16/22516 Narrative: Patient Name: MOISES MADRID : 1960 Exam Date/Time: 06/16/2022 05:16 Procedure: XR CHEST 1 VIEW Ordering Provider: NELSON HASSAN Reason For Exam: DYSPNEA CLINICAL INFORMATION: Dyspnea [place] 0424 hours is provided and compared with a previous study dated 06/15/2022 FINDINGS: The heart size is normal. There are bibasilar infiltrates and effusions. There is prominence of the interstitium and central pulmonary vasculature. Impression: Prominence of the central pulmonary vasculature consistent with moderate congestive heart failure/fluid overload, slightly improved from the prior exam. Report Dictated on Electronically Signed By: Loki Roberts Electronically Signed Date/Time: 06/16/2022 4:29 AM EST XR chest 1 view [[id number]] Collected: 06/15/22 1132 Order Status: Completed Updated: 06/15/221133 Narrative: Patient Name: MOISSE MADRID : 1960 Exam Date/Time: 06/15/2022 10:31 Procedure: XR CHEST 1 VIEW Ordering Provider: NELSON HASSAN Reason For Exam: Shortness of breath CLINICAL INFORMATION: Shortness of breath. Portable view of the chest at 1010 hours is provided and compared with a previous study dated 06/12/2022. FINDINGS: The heart size is normal. There are bibasilar infiltrates and effusions. There is prominence of the interstitium and central pulmonary vasculature. Impression: 1. Worsening infiltrates. 2. Prominence of the central pulmonary vasculature consistent with moderate congestive heart failure/fluid overload. This has also progressed. Report Dictated on Electronically Signed By: Chaz Poon Electronically Signed Date/Time: 06/15/2022 11:33 AM EST Procedure Component Value Units Date/Time CT abdomen pelvis w contrast [[id number]] Collected: 06/13/222204 Order Status: Completed Updated: 06/13/222220 Narrative: Patient Name: MOISES MADRID : 1960 [facility] [id number] Exam Date/Time: 06/13/2022 17:39 Procedure: CT ABDOMEN PELVIS W CONTRAST Ordering Provider: EDGAR JONATHAN Reason For Exam: Abdominal pain, acute, nonlocalized CT ABDOMEN AND PELVIS WITH CONTRAST CLINICAL INDICATION: Abdominal pain, acute, nonlocalized TECHNIQUE: CT scan of the abdomen and pelvis, with IV contrast. Multiplanar reformations. 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 COMPARISON: June,. FINDINGS: Abdomen: Visualized lung bases again show partially confluent opacities in the right middle and bilateral lower lobes, with some air bronchograms mildly increased. Very small bilateral pleural effusions, about the same. Interval placement of percutaneous pigtail catheter extending into focal fluid noted previously along the greater curvature the stomach, which is considerably decreased and nearly resolved. Pancreas again prominent and shows diffuse peripancreatic fat stranding or infiltration, mildly increased. Fluid attenuation again seen adjacent to pancreatic tail, extending caudally along the anterior pararenal space and paracolic gutter not appreciably changed. No radiopaque gallstones. Liver shows diffusely decreased attenuation without focal abnormality. Spleen without significant abnormality. Punctate calcification and tiny cyst again noted in the right kidney without significant hydronephrosis. Left kidney grossly unremarkable. Adrenal glands without significant abnormality. Pelvis: Bowel grossly unremarkable. Appendix within normal limits. Very small amount of nonspecific, free fluid noted along right paracolic gutter and in the pelvis. No discrete abscess. Abdominal aorta is nonaneurysmal. Buckley catheter noted in decompressed urinary bladder. Axial skeleton grossly intact, with degenerative change again noted in the lumbar spine. Diffuse subcutaneous edema in the trunk and pelvis, new in the interval. Impression: 1. Interval placement of percutaneous pigtail catheter and near complete resolution of focal fluid noted previously along the greater curvature of the stomach. 2. Findings compatible with pancreatitis, mildly increased in the interval. 3. Hepatic steatosis, and nonobstructing right renal calcification. 4. Very small amount of nonspecific free fluid in the abdomen and pelvis, similar to comparison. Anasarca, new in the interval. 5. Mild atelectasis or infiltrates in right middle and bilateral lower lobes, mildly increased in the interval. Report Dictated on Electronically Signed By: Merrick Lopez Electronically Signed Date/Time: 06/13/2022 10:20 PM EST US abdomen limited [[id number]] Collected: 06/13/22823 Order Status: Completed Updated: 06/13/22829 Narrative: Patient Name: MOISES MADRID : 1960 Exam Date/Time: 06/13/2022 07:20 Procedure: US ABDOMEN LIMITED Ordering Provider: CORTEZ JONATHAN Reason For Exam: PANCREATITIS - ACUTE ULTRASOUND ABDOMEN RUQ CLINICAL HISTORY:PANCREATITIS - ACUTE COMPARISON: CT 06/10/2022 TECHNIQUE: Grayscale sonographic images were obtained of the right upper quadrant. Color Doppler was utilized. FINDINGS: Portions the exam are limited by overlying bowel gas, patient immobility and body habitus, as well as due to indwelling epigastric drainage catheter. Liver: Left lobe is not well visualized. Right hepatic parenchymal echotexture is slightly heterogeneous and increased. No discrete lesions on submitted images. Biliary system: No sonographic evidence of intrahepatic biliary ductal dilatation. The common bile duct is normal in caliber and measures 2 mm. Gallbladder: Gallbladder appears well-distended. Several small stones are present. No pericholecystic fluid or gallbladder wall thickening. There was a negative sonographic Cole's sign reported by the registered vascular technologist (rvt). Pancreas: Obscured by bowel gas. Right Kidney: Largely obscured by bowel gas. Additional findings: Trace perihepatic ascites. Impression: 1. Technically limited evaluation. In particular the left hepatic lobe, pancreas, and right kidney are not well visualized or evaluated. 2. Cholelithiasis without sonographic evidence of acute cholecystitis. 3. No biliary ductal dilatation Report Dictated on Electronically Signed By: Cheko Chapa Electronically Signed Date/Time: 06/13/2022 8:29 AM EST XR chest 1 view [[id number]] Collected: 06/12/22 1254 Order Status: Completed Updated: 06/12/22 1257 Narrative: Patient Name: MOISES MADRID : 1960 Exam Date/Time: 06/12/2022 12:43 Procedure: XR CHEST 1 VIEW Ordering Provider: EDGAR JONATHAN Reason For Exam: DYSPNEA EXAMINATION: XR chest AP. EXAM DATE & TIME: 06/12/2022 12:43 PM EST INDICATION: DYSPNEA ADDITIONAL INFORMATION: 61-year-old male with dyspnea presents for evaluation COMPARISON: Chest radiographs dated 06/10/2022, 06/07/2022 and 07/27/2013 TECHNIQUE: Frontal view of the chest was obtained. FINDINGS: Lines/support devices: Cardiac leads and defibrillator pads project over the chest, somewhat limiting evaluation. Cardiomediastinal silhouette: Obscured. Lungs/pleura: There are low lung volumes. Bibasilar scarring/atelectasis is seen. Indistinctness of the costophrenic angles is noted. No evidence of pneumothorax. Osseous structures: Degenerative changes of the spine and shoulders are seen. No acute osseous abnormality is demonstrated. The bones are osteopenic. Other findings: None. Impression: Low lung volumes with bibasilar scarring/atelectasis and indistinctness of the costophrenic angles, suggestive of small bilateral pleural effusions. Report Dictated on Electronically Signed By: Asad Mccarthy Electronically Signed Date/Time: 06/12/2022 12:56 PM EST XR foot 3+ views right [[id number]] Collected: 06/12/22 1250 Order Status: Completed Updated: 06/12/221252 Narrative: Patient Name: MOISES MADRID : 1960 Exam Date/Time: 06/12/2022 12:44 Procedure: XR FOOT 3+ VIEWS RIGHT Ordering Provider: EDGAR JONATHAN Reason For Exam: r/o OM RIGHT FOOT: CLINICAL INDICATION: Possible osteomyelitis. TECHNIQUE: AP, Lat, Oblique COMPARISON: 05/09/2011 FINDINGS: There is no evidence for fracture or dislocation. Degenerative changes in the midfoot and first MTP joint. Dense Achilles tendon calcifications again seen. Dorsal soft tissue swelling overlying the mid foot. No evidence of soft tissue gas, osseous erosive change or periostitis. Note that if there is persistent concern for osteomyelitis, MRI is a more sensitive means of evaluation. Report Dictated on Electronically Signed By: Ezra Guthrie Electronically Signed Date/Time: 06/12/2022 12:[address] guided abscess fluid collection drainage [[id number]] Collected: 06/10/22 160 Order Status: Completed Updated: 06/10/22 1610 Narrative: Patient Name: MOISES MADRID : 1960 Exam Date/Time: 06/10/2022 14:50 Procedure: CT GUIDED ABSCESS FLUID COLLECTION DRAINAGE Ordering Provider: EDGAR JONATHAN Reason For Exam: PROCEDURE: Drainage catheter placement Procedural Personnel Attending physician(s): Jus Barlow Indication: Peripancreatic fluid collection Additional clinical history: None Complications: No immediate complications. Impression: Percutaneous placement of a 10 Prydeinig drainage catheter into peripancreatic fluid collection, yielding 150 mL of bloody fluid. __ PROCEDURE SUMMARY: - Intraperitoneal drainage catheter placement under CT guidance - Additional procedure(s): None PROCEDURE DETAILS: Pre-procedure Consent: Informed consent for the procedure including risks, benefits and alternatives was obtained and time-out was performed prior to the procedure. Preparation: The site was prepared and draped using maximal sterile barrier technique including cutaneous antisepsis. Anesthesia/sedation Moderate sedation was provided under my supervision with patient monitored by a trained radiology nurse. Total sedation time of 25 minutes. Drainage catheter placement The patient was positioned supine. Initial imaging was performed. Local anesthesia was administered. The fluid collection was accessed using an access needle followed by wire insertion and serial dilation and a drainage catheter was placed. Position of the drainage catheter within the fluid collection was confirmed. - Initial imaging findings: Peripancreatic fluid collection - Drainage catheter placed: 10 Prydeinig APD - External catheter securement: Non-absorbable suture and adhesive anchoring device - Post-drainage imaging findings: Drainage catheter in adequate position with pigtail in the most superior aspect of the fluid collection. Contrast Contrast agent: None Contrast volume (mL): [address] dose length product (mGy-cm): 811 Additional Details Additional description of procedure: None Equipment details: None Specimens removed: Aspirated fluid was sent for analysis. Estimated blood loss (mL): Less than 10 Report Dictated on Electronically Signed By: Jus Barlow Electronically Signed Date/Time: 06/10/2022 4:[address] abdomen pelvis wo IV contrast [[id number]] Collected: 06/10/22914 Order Status: Completed Updated: 06/10/22930 Narrative: Patient Name: MOISES MADRID : 1960 [facility]#: [id number] Exam Date/Time: 06/10/2022 08:50 Procedure: CT ABDOMEN PELVIS WO IV CONTRAST Ordering Provider: EDGAR JONATHAN Reason For Exam: Abdominal pain, acute, nonlocalized CT ABDOMEN AND PELVIS WITHOUT IV CONTRAST CLINICAL INDICATION: Acute abdominal pain, nonlocalized TECHNIQUE: Axial CT images through the through the abdomen and pelvis with 3 mm reconstruction without intravenous intravenous contrast media. Enteric contrast was not administered. Coronal and sagittal reconstructions included. 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 COMPARISON: None. FINDINGS: Examination is somewhat limited in evaluation of solid organs and vascular structures due to the lack of intravenous contrast. Additional limitations: Somewhat limited evaluation of the GI tract without enteric contrast. Mild motion and streak artifact limits evaluation to some extent Lung base: Trace to small pleural effusions with mild bibasilar atelectasis/pneumonia. Liver: Hepatic steatosis. Gallbladder/Biliary tree: Gallbladder is somewhat inconspicuous possibly due to the presence of sludge or less likely calculi.. No intra or extrahepatic biliary ductal dilatation Spleen: Within normal limits. Pancreas: Pancreas is heterogeneous with surrounding poorly defined and more confluent fluid particularly at the level of the pancreatic body and tail with extension along the anterior left pararenal space as well as into the lesser sac. Small pocket of loculated fluid along the greater curvature on series 3 image 46 measuring 5.0 x 3.6 cm with distal extension. Fluid demonstrates borderline complexity. Adrenals: No discrete mass or nodule detected. Kidneys/pelvic organs: No obstructive uropathy. Punctate nonobstructing calculus right kidney. Urinary bladder is collapsed limiting evaluation. Borderline prostamegaly. GI tract: A few prominent air distended loops of small bowel without evidence of mechanical obstruction. Normal appendix is identified. Mild to moderate amount retained colonic stool more so proximally. No colonic wall thickening or pericolonic stranding. . Peritoneal cavity/retroperitoneum: No pneumatosis or pneumoperitoneum. No bulky adenopathy. Small amount of lower abdominal/pelvic ascites which appears to be simple in complexity. Vasculature: Normal caliber abdominal aorta. Osseous structures/soft tissues: Degenerative spondylosis in the visualized spine with mild scoliotic curvature. Suspected developmental spinal canal narrowing. Tiny left greater than right fat-containing inguinal hernia without bowel involvement. Trace body wall edema. Gynecomastia Impression: 1. Acute pancreatitis with surrounding poorly defined and more confluent fluid particularly at the level of the pancreatic body and tail with extension along the anterior left pararenal space as well as into the lesser sac. Small pocket of loculated fluid along the greater curvature of the stomach measures 5.0 x 3.6 cm with distal extension. Fluid demonstrates borderline complexity. 2. Nonobstructing punctate right renal calculus. 3. Trace to small pleural effusions with mild bibasilar atelectasis/pneumonia. 4. Questionable trace gallbladder sludge/calculi. Report Dictated on Electronically Signed By: Cheko Chapa Electronically Signed Date/Time: 06/10/2022 9:30 AM EST XR chest 1 view [[id number]] Collected: 06/10/22843 Order Status: Completed Updated: 06/10/22850 Narrative: Patient Name: MOISES MADRID : 1960 Exam Date/Time: 06/10/2022 08:36 Procedure: XR CHEST 1 VIEW Ordering Provider: EDGAR JONATHAN Reason For Exam: DYSPNEA CHEST RADIOGRAPH CLINICAL INDICATION: Dyspnea TECHNIQUE: AP COMPARISON: 05/30/2022 chest radiograph FINDINGS: Cardiomediastinal: Cardiomediastinal silhouette is normal in size and configuration. Lungs: There are low lung volumes with bronchovascular crowding. Questionable retrocardiac opacity. No pleural effusion or pneumothorax. Osseous structures: No acute osseous abnormality. Impression: Questionable retrocardiac opacity, please correlate with clinical concern for developing pneumonia. Low lung volumes with bronchovascular crowding. Report Dictated on Electronically Signed By: Barry Castillo Electronically Signed Date/Time: 06/10/2022 8:50 AM EST XR chest 1 view [[id number]] Collected: 06/07/222325 Order Status: Completed Updated: 06/07/222327 Narrative: Patient Name: MOISES MADRID : 1960 Exam Date/Time: 06/07/2022 23:25 Procedure: XR CHEST 1 VIEW Ordering Provider: CASTELAN NICOLE Reason For Exam: chest pain CHEST - PORTABLE: CLINICAL INDICATION: Chest pain. . TECHNIQUE: Portable AP COMPARISON: 07/27/2013 Impression: FINDINGS/IMPRESSION: Limitations: Slightly limited by patient positioning Lines, tubes, and devices: None Cardiomediastinal silhouette: Heart size is within normal limits. Lungs/Pleura: Elevation of the right hemidiaphragm, similar to prior study. Borderline central pulmonary vascular congestion. No consolidation, sizable pleural effusions, or pneumothorax. Osseous structures: Degenerative spondylosis in the visualized spine. 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 Soft tissues: No soft tissue abnormality is detected. Report Dictated on Electronically Signed By: Cheko Chapa Electronically Signed Date/Time: 06/07/2022 11:27 PM EST Assessment SIRS Acute pancreatitis with peripancreatic abscess s/p percutaneous drain (3/3) Acute hypoxic respiratory insufficiency 2/2 coronavirus and pulmonary vascular congestion Coronavirus Acute hyponatremia EDWARDO - resolved Right foot wounds - no active infection Hyperkalemia-resolved HTN HLD Hx of TBI, stroke and residual hemiplegia Chronic headaches Mood disorder Medical Decision Making -Patient presents to [facility] ED from SN[facility] on [facility]/08 with complaints of chest pain. Symptoms started day before admission given a PPI at the facility with no relief. In the ED, vital signs were stable. Labs are consistent with a potassium of 6.0, BUN 41, Scr 1.38, troponin negative x1, Lipase 3500, WBC 10.4, COVID/flu/RSV negative, chest x-ray showed borderline central pulmonary vascular congestion. EKG sinus tachycardia with no acute ST or T wave changes.. Given that nitroglycerin and Nitropaste in the ER with resolution of symptoms. Admitted under hospitalist group in the HICU for further evaluation. Underwent stress test which was negative and echocardiogram shows an EF of 70%. Cardiology consulted and recommends medical management with no further intervention. - Patient develop worsening abdominal pain and CT abdomen showed inflammation around the pancreas with loculated fluid collection 5 x 3.6 cm around the greater curvature of the stomach concerning for an abscess. General surgery consulted and recommended IR percutaneous drain which was done on 06/10. ID and GI consulted given high complexity and placed on empiric antibiotics. No acute surgical intervention recommended. - Patient subsequently developed hypoxia and chest x-ray showed questionable right retro- cardiac opacity which could be due to pneumonia. Discussed with Dr. Dickerson and advise changing Zosyn to Ertapenem therapy on 06/14. However, patient vital signs change becoming more tachycardic, tachypneic and febrile. ID changed him to Vanco and meropenem. Chest x-ray obtained consistent with pulmonary vascular congestion and volume overload. Started on IV Lasix with nephrology consulted in the setting of hyponatremia. Evaluated by ICU on 06/16 and deem appropriate for floor after given Narcan. - Patient received 8 days of abx and ID discontinued current regimen on 06/17. Sx likely related to acute pancreatitis. Advise to monitor off abx. Underwent MBS on 06/17 consistent with decreased bolus formation with spillage to floor of mouth and to vallecula prior to swallow; advised puree diet and mildly thick liquids. Reviewed CXR this am and remains volume overloaded. Continue on IV diuresis and repeat CXR tomorrow am. Continue to monitor and will need placement -am labs, replace lytes prn -increase activity -DVT prophylaxis: [x] Lovenox [] Heparin [] SCDs [x] Encourage ambulation [] Already on Anticoagulation Anticipated Discharge - Date - TBD - Location - Skilled Facility - Pending the following - Stability, specialist clearance Total time spent (which include face to face and non face to face encounters) : 55 minutes Toxic drug monitoring/narrow therapeutic index drug monitoring : # Drug name : Lovenox # Route administered : SubQ # Method of monitoring : CBC Extended Emergency Contact Information Primary Emergency Contact: Joslyn Hollins Relation: Other Asia Nelson MD Division of Hospitalist Medicine Inpatient Medical Services/[facility] [place] [facility]: [employer] .. [facility] Progress Note Subjective/ 61 y.o. year old male who we are seeing in consultation for Hyponatremia. NAEON Awakens to voice and able to follow commands States he feels tired BP is stable heart rate is slightly tachycardic. No issues with UOP No other new issues at this time ROS done and negative unless mentioned as above No change in PFSH All data labs/interval notes and overnight issues are reviewed Objective/ Vitals: 06/17/22 1938 06/17/22 2316 06/18/22 0314 06/18/22 0800 BP: 138/88 (!) 141/94 125/76 126/83 BP Location: Right arm Right arm Right arm Right arm Patient Position: Lying Lying Lying Pulse: 110 (!) 115 110 107 Resp: 17 Temp: 37.8 C (100.1 F) 36.8 C (98.2 F) 37.4 C (99.4 F) TempSrc: Oral Oral Oral SpO2: 98% 96% 94% 96% Weight: Height: Intake/Output Summary (Last 24 hours) at 06/18/2022 0912 Last data filed at 06/18/2022 0620 Gross per 24 hour Intake 550 ml Output 2925 ml Net -2375 ml ARIPiprazole, 5 mg, Oral, Daily aspirin, 81 mg, Oral, Daily divalproex sprinkle, 250 mg, Oral, 2 times per day enoxaparin, 40 mg, SubCUTAneous, Daily furosemide, 40 mg, IntraVENous, BID guaiFENesin, 600 mg, Oral, BID influenza vaccine split quadravalent, 0.5 mL, IntraMUSCular, Once melatonin, 10 mg, Oral, Nightly memantine, 10 mg, Oral, BID miconazole, , Topical, BID senna-docusate sodium, 2 tablet, Oral, Daily venlafaxine, 75 mg, Oral, BID PRN medications: acetaminophen OR acetaminophen, bisacodyl, dextrose, dextrose, glucagon (rDNA), glucose, ipratropium-albuterol, lidocaine, melatonin, naloxone, nitroglycerin, ondansetron ODT OR ondansetron, polyethylene glycol (PEG) 3350, stomahesive in petrolatum Constitutional: Alert, awake, no apparent distress Eyes: No icterus, no pallor HEENT: no pallor/cyanosis or icterus Cardiovascular: S1, S2 without m/r/g Respiratory: CTA B without w/r/r GI: +bs, soft, nt Ext: No LE edema Neck: supple, no thyroid enlargement, no JVD elevation Skin: warm, moist, no rashes Results from last 7 days Lab Units 06/18/2231606/17/2243706/16/22317 SODIUM mmol/L 129* 130* 132* POTASSIUM mmol/L 3.8 3.7 4.0 CHLORIDE mmol/L 93* 95* 95* CO2 mmol/L 35* 33* 32* BUN mg/dL 22* 19 16 CREATININE mg/dL 0.88 0.82 0.80 GLUCOSE mg/dL 195* 181* 173* CALCIUM mg/dL 8.3* 8.0* 8.1* Results from last 7 days Lab Units 06/18/2231606/17/2243706/16/22317 WBC AUTO 10*3/uL 20.7* 19.8* 19.9* HEMOGLOBIN g/dL 13.3 12.6* 12.6* HEMATOCRIT % 39.5* 37.7* 37.8* PLATELETS AUTO 10*3/uL 304 264 229 Assessment/Plan Acute hyponatremia 2/2 unclear ADH stimulus/SIADH. Met alkalosis 3. Acute hypoxic respiratory insufficiency 4. Acute pancreatitis 5. Right foot wounds 6. HTN, essential Plan: -Na levels acceptable -Metabolic alkalosis is resolving sodium is trending in the wrong direction. -Hyponatremia likely 2/2 excess ADH (valproic acid, venlafaxine, narcotics ) versus poor p.o. solute intake On mildly thick nectar low-fat diet. -Scr is stable at baseline and c/w IV diuretics -UA and urine studies not c/w volume depletion -Will add salt tablets concurrently with diuresis to causenet aquaresis. -Fluid restriction: 1.2L -Volume status: euvolemic -Encourage 3 meals a day high in protein and ensure supplements ordered -Strict I&O -All other management defer to primary/ICU teams -We will follow closely with you Images from the original note were not included. [facility] Wound Care Progress Note Moises Madrid AGE: 61 y.o. GENDER: male : 1960 Subjective: HISTORY of PRESENT ILLNESS HPI Moises Madrid is a 61 y.o. male who presents for a wound follow up both thighs healed, continue ET mix, lesser toes on right foot treatment needs changed wound is open and moderate drainage on second toe, photo below. NAD,able to turn for me to check his backside and post thighs. Reports resting , +immobility , no cough. 06/08/22 PVR results: Right side findings: Resting JULES is 1.15. This is within the normal range. Left side findings: Resting JULES is 1.09. This is within the normal range. 06/11/22 Venous duplex result - negative for DVT rt/left LE PAST MEDICAL HISTORY Active Ambulatory Problems Diagnosis Date Noted Chest pain, unspecified type 06/08/2022 Resolved Ambulatory Problems Diagnosis Date Noted No Resolved Ambulatory Problems Past Medical History: Diagnosis Date Anxiety Ataxia Bipolar disorder (HCC) Chronic pain Constipation Contracture, right hand Depression Dysphagia Dysphagia Dysphonia Edema GERD (gastroesophageal reflux disease) Headache Hemiplegia (CMS/HCC) (HCC) Hyperlipidemia Hypertension Insomnia Muscle weakness Neuropathy TBI (traumatic brain injury) PAST SURGICAL HISTORY Past Surgical History: Procedure Laterality Date CRANIOTOMY FAMILY HISTORY No family history on file. SOCIAL HISTORY Social History Tobacco Use Smoking status: Never Smokeless tobacco: Never Vaping Use Vaping Use: Never used Substance Use Topics Alcohol use: Never Drug use: Never ALLERGIES Allergies Allergen Reactions Hydralazine Unknown Sulfamethoxazole-Trimethoprim Unknown Temazepam Unknown Tramadol Unknown Clindamycin Rash Burn, rash Burn, rash MEDICATIONS No current facility-administered medications on file prior to encounter. Current Outpatient Medications on File Prior to Encounter Medication Sig Dispense Refill cloNIDine (Catapres) 0.[address] 0.3 mg on the skin 1 (one) time per week. acetaminophen (Tylenol) 325 MG tablet Take 650 mg by mouth every 4 hours as needed for mild pain (1-3). albuterol (2.5 MG/3ML) 0.083% nebulizer solution Take by nebulization every 3-4 hours as needed for wheezing. ARIPiprazole (Abilify) 5 MG tablet Take 5 mg by mouth daily. aspirin 81 MG EC tablet Take 81 mg by mouth daily. atorvastatin (Lipitor) 40 MG tablet Take 40 mg by mouth Nightly. cholecalciferol (Vitamin D3) 1.25 MG (43711 UT) tablet Take by mouth 1 (one) time per week. clobetasol (Temovate) 0.05 % cream Apply topically 2 times daily. dextromethorphan 15 MG/5ML syrup Take 10 mL by mouth as needed for cough. divalproex (Depakote ER) 500 MG 24 hr tablet Take 500 mg by mouth Nightly. Docusate Sodium (DSS) 100 MG capsule Take 100 mg by mouth daily. famotidine (Pepcid) 20 MG tablet Take 20 mg by mouth every morning. famotidine (Pepcid) 40 MG tablet Take 40 mg by mouth in the morning. gabapentin (Neurontin) 100 MG capsule Take 200 mg by mouth 2 times daily. gabapentin (Neurontin) 300 MG capsule Take 300 mg by mouth Nightly. glucosamine-chondroitin 500-400 MG tablet Take 1 tablet by mouth in the morning and 1 tablet in the evening. guaiFENesin (Mucinex) 600 MG 12 hr tablet Take 1,200 mg by mouth 2 times daily. Do not crush, chew, or split. HYDROcodone-acetaminophen ([place]) 5-325 MG tablet Take 1 tablet by mouth every 6 hours as needed. ketoconazole (NIZOral) 2 % cream Apply topically 2 times daily. lisinopril 20 MG tablet Take 40 mg by mouth daily. melatonin 5 MG tablet Take 3 mg by mouth Nightly. memantine (Namenda) 10 MG tablet Take 10 mg by mouth 2 times daily. metoprolol tartrate (Lopressor) 25 MG tablet Take 25 mg by mouth 2 times daily. mineral oil-hydrophilic petrolatum (Aquaphor) ointment Apply topically if needed for dry skin. [place]-3 Fatty Acids (Fish Oil) 1000 MG capsule delayed-release Take 2,000 mg by mouth. potassium chloride CR (Klor-Con M20) 20 MEQ ER tablet Take 40 mEq by mouth daily. Do not crush or chew. spironolactone (Aldactone) 100 MG tablet Take 100 mg by mouth daily. tamsulosin (Flomax) 0.4 MG 24 hr capsule Take 0.4 mg by mouth daily. tiZANidine (Zanaflex) 2 MG tablet Take 4 mg by mouth every 12 hours as needed for muscle spasms. venlafaxine (Effexor) 75 MG tablet Take 75 mg by mouth 2 times daily. REVIEW OF SYSTEMS Pertinent items are noted in HPI. Objective: BP 134/81 (BP Location: Right arm, Patient Position: Lying) Pulse 106 Temp 36.7 C (98 F) (Oral) Resp 20 Ht 6' 2 (1.88 m) Wt 250 lb 14.1 oz (114 kg) SpO2 97% BMI 32.21 kg/m PHYSICAL EXAM Constitutional: in no apparent distress, well developed and well nourished, in no respiratory distress and acyanotic, and cooperative SKIN : no rashes or significant lesions,right lesser toes - Improved - 2nd toe 2cm x1cm x0.1cm moderate serosang drainage, red wound bed, surrounding skin intact. _and 3rd toe (1cm x1cm x0.1cm ) closed scab, no drainage, surrounding skin intact . Abdominal skin folds moist and pink blanchable Right posterior thigh - Improved with dark pink blanchable tissues intact. Left post thigh and perineum - Improved - intact skin. Pulmonary: Normal effort, no respiratory distress, no cyanosis Abdomen: soft, nontender, and nondistended, drain in place, scant sanguinous drainage venous stasis dermatitis noted 06/14/22 photo: 06/08/22 photo: LABS CBC: Lab Results Component Value Date WBC 19.8 (H) 06/17/2022 HGB 12.6 (L) 06/17/2022 HCT 37.7 (L) 06/17/2022 MCV 90.0 06/17/2022 PLT 264 06/17/2022 BMP: Lab Results Component Value Date NA 130 (L) 06/17/2022 K 3.7 06/17/2022 CL 95 (L) 06/17/2022 CO2 33 (H) 06/17/2022 BUN 19 06/17/2022 CREATININE 0.82 06/17/2022 PT/INR: No results found for: PROTIME, INR Prealbumin: No results found for: PREALBUMIN Albumin:No components found for: LABALBU Sed Rate:No results found for: SEDRATE Micro: No components found for: BC Assessment/Plan: Idiopathic chronic venous hypertension of right lower extremity with ulcer Right lesser toes - cleanse with betadine apply betadine moist gauze and dry dressing, change daily . PVR reviewed WNL Venous insufficiency Elevate legs as much as possible Right posterior thigh Moisture associated skin damage from friction and other body fluids. - ET mix BID Left post thigh and perineum - ET mix BID . Intertrigo, abdominal fold - miconazole powder BID Please follow up at [facility] wound [facility] [place] after hospital discharge. I personally obtained the castro and critical portions of the history and physical exam. I reviewed the labs, imaging studies, and electronic medical record. I reviewed the chart documentation and discussed the patient with treatment team members. I have edited the note to reflect my clinical findings and my assessment and plan. Please note, the time of this note does not reflect the time I saw this patient today, but the time of this documentaton. Portions of this note including HPI, ROS, impression/plan, and examination may have been copied forward from admission to today as to provide important historical information essential in contributing to medical decision making. Documentation has been reviewed and edited as necessary to support clinical decision making for today's visit and to reflect my own independent evaluation of this patient. Decision making for today's visit and to reflect my own independent evaluation of this patient. .. [facility] Progress Note Subjective/ 61 y.o. year old male who we are seeing in consultation for Hyponatremia. KOBE Awakens to voice and able to follow commands States he feels tired BP is stable No issues with UOP No other new issues at this time ROS done and negative unless mentioned as above No change in PFSH All data labs/interval notes and overnight issues are reviewed Objective/ Vitals: 06/17/22 0600 06/17/22 0803 06/17/22 0850 06/17/22 1422 BP: (!) 148/87 (!) 139/96 BP Location: Right arm Patient Position: Lying Pulse: 104 108 Resp: 19 24 Temp: 36.6 C (97.8 F) TempSrc: Oral SpO2: 98% 96% Weight: 114 kg (250 lb 14.1 oz) Height: 1.88 m (6' 2) Intake/Output Summary (Last 24 hours) at 06/17/2022 1639 Last data filed at 06/17/2022 1015 Gross per 24 hour Intake 500 ml Output 2950 ml Net -2450 ml ARIPiprazole, 5 mg, Oral, Daily aspirin, 81 mg, Oral, Daily divalproex sprinkle, 250 mg, Oral, 2 times per day enoxaparin, 40 mg, SubCUTAneous, Daily furosemide, 40 mg, IntraVENous, BID guaiFENesin, 600 mg, Oral, BID influenza vaccine split quadravalent, 0.5 mL, IntraMUSCular, Once melatonin, 10 mg, Oral, Nightly memantine, 10 mg, Oral, BID miconazole, , Topical, BID senna-docusate sodium, 2 tablet, Oral, Daily venlafaxine, 75 mg, Oral, BID PRN medications: acetaminophen OR acetaminophen, bisacodyl, dextrose, dextrose, glucagon (rDNA), glucose, ipratropium-albuterol, lidocaine, melatonin, naloxone, nitroglycerin, ondansetron ODT OR ondansetron, polyethylene glycol (PEG) 3350, stomahesive in petrolatum Constitutional: Alert, awake, no apparent distress Eyes: No icterus, no pallor HEENT: no pallor/cyanosis or icterus Cardiovascular: S1, S2 without m/r/g Respiratory: CTA B without w/r/r GI: +bs, soft, nt Ext: No LE edema Neck: supple, no thyroid enlargement, no JVD elevation Skin: warm, moist, no rashes Results from last 7 days Lab Units 06/17/22 0438 06/16/22 0318 06/15/22 0401 SODIUM mmol/L 130* 132* 128* POTASSIUM mmol/L 3.7 4.0 4.2 CHLORIDE mmol/L 95* 95* 95* CO2 mmol/L 33* 32* 33* BUN mg/dL 19 16 10 CREATININE mg/dL 0.82 0.80 0.81 GLUCOSE mg/dL 181* 173* 175* CALCIUM mg/dL 8.0* 8.1* 8.0* Results from last 7 days Lab Units 06/17/22 0438 06/16/22 0318 06/15/22 0401 WBC AUTO 10*3/uL 19.8* 19.9* 19.0* HEMOGLOBIN g/dL 12.6* 12.6* 12.2* HEMATOCRIT % 37.7* 37.8* 37.1* PLATELETS AUTO 10*3/uL 264 229 186 Assessment/Plan Acute hyponatremia 2/2 unclear ADH stimulus/SIADH. Met alkalosis 3. Acute hypoxic respiratory insufficiency 4. Acute pancreatitis 5. Right foot wounds 6. HTN, essential Plan: -Na levels acceptable -Hyponatremia likely 2/2 excess ADH (valproic acid, venlafaxine, narcotics ) versus poor p.o. solute intake -Scr is stable at baseline and c/w IV diuretics -UA and urine studies not c/w volume depletion -If does not improve, may benefit from x1 tolvaptan to gauge response vs salt tabs -Fluid restriction: 1.2L -Volume status: euvolemic -Encourage 3 meals a day high in protein and ensure supplements ordered -Strict I&O -All other management defer to primary/ICU teams -s/w Dr. Nelson -We will follow closely with you Nutrition Assessment Type and Reason for Visit: Reassess (pt had bms today -needs fed) Nutrition Recommendations/Plan: Suggest to continue pureed mildly thick- nectar- low fat ( less than 50 gm fat/day) post MBS. Patient is a feed per MNT protocol ,will modify ONS of Pro-stat ( 100 jaclyn, 15 gm pro/serving) bid mixed with mildly thick lemon water. Suggest daily mvi for skin integrity PLEASE DOCUMENT PO intakes-diet and Silvestre- consistently in the flowsheet to better assess intake adequacy. Monitor labs, status, intakes,wts to reassess. 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 AO x 3 on exam. Feels slightly better but remains acutely ill. Adult diet Dysphagia - Pureed; Moderately Thick (Honey); Low Fat (less than or equal to 50 gm/day). per MD-1. SIRS 2. Acute pancreatitis with peripancreatic abscess s/p percutaneous drain (3/) 3. Acute hypoxic respiratory insufficiency 2/2 coronavirus and pulmonary vascular congestion 4. Coronavirus 5. Acute hyponatremia 6. EDWARDO - resolved 7. Right foot wounds - no active infection 8. Hyperkalemia-resolved 9. HTN 10. HLD 11. Hx of TBI, stroke and residual hemiplegia 12. Chronic headaches 13. Mood disorder.Diagnosed with sepsis and ID changed him to Vanco and meropenem. Chest x-ray yesterday obtained consistent with pulmonary vascular congestion and volume overload. Started on IV Lasix with nephrology consulted in the setting of hyponatremia. Evaluated by ICU yesterday and deem appropriate for floor after given Narcan. Patient received 8 days of abx and ID discontinued current regimen. Plan is supportive care measures. Estimated Daily Nutrient Needs: Energy Requirements Based On: Kcal/kg Weight Used for Energy Requirements: [place] Weight for Energy Calculation (kg): 86 kg Total Energy Requirements (kcals/day): 25--30 or 2782-4552 Weight Used for Protein Requirements: [place] Weight in Kg Used for Protein Requirements: 86 kg Estimated Total Protein (g/day): 1.0-1.2 or 86-103 Estimated Daily Total Fluid (ml/day): or per md Nutrition Related Findings: weak job developer ,altered mental status,+2 bl;trace upper ,generalized edema-variable po, na 130, glu 181,lipase 1078,alb 3.1,nh3- 13-wounds improved, 3/6 bm Wound Type: Multiple, Deep Tissue Injury, Stage II, Moisture Associate Skin Damage (jennie 11-13 -dti buttock- r and left buttock, stage 2 toe,abd fold excoriation) Current Nutrition Therapies: Adult diet Dysphagia - Pureed; Mildly Thick ([place]); Low Fat (less than or equal to 50 gm/day) Current Oral Intake Average Meal Intake: 76-100%, 1-25% (variable po intakes) Average Supplements Intake: 26-50%, Unable to assess (not recorded) Anthropometric Measures: Height: 188 cm (6' 2) Current Body Weight: 114 kg (251 lb 5.2 oz) (06/17) Weight Source: Bed Scale Usual Body Weight: 112 kg (248 lb) (248-253 lbs) % Weight Change (Calculated): 2 [place] Body Weight (lbs) (Calculated): 190 lbs [place] Body Weight (Kg) (Calculated): 86 kg % [place] Body Weight (Calculated): 132.3 % BMI (kg/m2) (Calculated): 32.3 BMI Categories: Obese Class 1 (BMI 30.0-34.9) Nutrition Diagnosis: Inadequate protein-energy intake, Increased nutrient needs related to other (comment), acute injury/trauma, psychological cause or life stress (abscess with drain) as evidenced by wounds, reduced job developer strength, poor intake prior to admission, intake 0-25%, other (comment) (psych meds reordered) Biting/chewing (masticatory) difficulty related to partial or complete edentulism as evidenced by other (comment) (mbs pureed diet mildly thick liquids- is a feed) Nutrition Interventions: Nutrition Education/Counseling: Education not indicated Coordination of Nutrition Care: Continue to monitor while inpatient, Feeding Assistance/Environment Change, Speech Therapy Plan of Care discussed with: pt,RN Goals: Previous Goal Met: Progressing toward Goal(s) (slowly) Goals: Meet at least 75% of estimated needs Nutrition Monitoring and Evaluation: Behavioral-Environmental Outcomes: None Identified, Other (Comment) (mental status) Food/Nutrient Intake Outcomes: Food and Nutrient Intake, Supplement Intake Physical Signs/Symptoms Outcomes: Biochemical Data, Chewing or Swallowing, Constipation, Fluid Status or Edema, Hemodynamic Status, Meal Time Behavior, Nutrition Focused Physical Findings, Skin, Weight Discharge Planning: Continue current diet, Continue Oral Nutrition Supplement Eugenia Sauer RD Contact: *[phone] or epic chat Occupational Therapy Facility/Department: [facility] Occupational Therapy Treatment NAME: Moises Madrid : 1960 Date of Service: 06/17/2022 Discharge Recommendations: Subacute/[facility] Facility Assessment Performance deficits / Impairments: Decreased functional mobility , Decreased ADL status, Decreased ROM, Decreased strength, Decreased sensation, Decreased endurance, Decreased cognition, Decreased safe awareness, Decreased balance, Decreased vision/visual deficit, Decreased high-level IADLs, Decreased fine motor control, Decreased coordination, Decreased posture Assessment: Pt very pleasant and willing for therapy. Total assist of 2 to scoot up in the bed and position RUE on a pillow. Pt is alert but with poor short term memory and decreased insight. Pt needs min assist for grooming. Particiapted in BUE exercises. PROM with RUE and is AAROM for LUE shoulder. AROM distally. Pt needed encouragement for full AROM as able with LUE. Pt would benefit from continued OT to increase strength and endurance needed for ADL's and transfers. REQUIRES OT FOLLOW-UP: Yes Patient Diagnosis(es): The primary encounter diagnosis was Chest pain, unspecified type. 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 has a past medical history of Anxiety, Ataxia, Bipolar disorder (HCC), Chronic pain, Constipation, Contracture, right hand, Depression, Dysphagia, Dysphagia, Dysphonia, Edema, GERD (gastroesophageal reflux disease), Headache, Hemiplegia (CMS/HCC) (HCC), Hyperlipidemia, Hypertension, Insomnia, Muscle weakness, Neuropathy, and TBI (traumatic brain injury). has a past surgical history that includes Craniotomy. Restrictions Restrictions/Precautions Restrictions/Precautions: Fall Risk, Contact Precautions, General Precautions Required Braces or Orthoses?: No Position Activity Restriction Other position/activity restrictions: O2 n.c., tele, salvador, buckley, drain Cognition/Orientation Overall Cognitive Status: Exceptions Arousal/Alertness: Delayed responses to stimuli Following Commands: Follows one step commands with increased time, Follows one step commands with repetition Attention Span: Attends with cues to redirect Memory: Appears intact Safety Judgement: Decreased awareness of need for safety Problem Solving: Decreased awareness of errors, Assistance required to generate solutions, Assistance required to identify errors made Insights: Decreased awareness of deficits Initiation: Requires cues for some Sequencing: Requires cues for all Cognition Comment: Pt alert and confused. Poor short term memory. Overall Orientation Status: Impaired Orientation Level: Oriented to person, Oriented to place, Disoriented to time Subjective Subjective Subjective: Pt supine in bed. Pt did not know the year. States Whatever you say when told the year. General Comments Comments: Pt ok to see per RN Patient Observation Observations: Pt supine in the bed. Reports having a stomach ache and that he was trying to pass gas. Pt did not rate pain. At end of session pt sates It's not bubbling anymore. Objective Feeding Assistance Level: Maximum assistance Skilled Clinical Factors: Pt needed spoon fed for his orange juice and is not allowed to have straws at this time. Pt drank about half the orange juice. Grooming/Oral Hygiene Assistance Level: Minimal assistance Skilled Clinical Factors: Pt washed his face and combed his hair. Pt needed min assist for thoroughness to wipe his mouth. Pt was suprised he had hair. I thought I got it all shaved off. Bed mobility Scooting: Dependent/Total, 2 Person assistance Comment: Total assist needed to scoot up in the bed using draw pad. Pt initially states that he would like to sit up and he thought he could do it. Not attempted due to needing assist x 2 and HR was 119 at rest. Transfers Transfer Comments: Not attempted. Plan Times per Week: 4 visits Current Treatment Recommendations: Strengthening, ROM, Balance Training, Functional Mobility Training, Endurance Training, Cognitive Reorientation, Modalities (comment), Patient/Caregiver Education & Training, Equipment Evaluation, Education, & procurement, Safety Education & Training, Pain Management, Positioning, Self-Care / ADL, Home Management Training, Neuromuscular Re-education Plan Comment: continue with OT POC Safety Safety Devices in place: Yes Type of devices: All fall risk precautions in place, Gait belt, Patient at risk for falls, Left in bed, Call light within reach, Nurse notified AM-PAC Score AM-PAC Inpatient Daily Activity Raw Score: 10 ADL Inpatient [facility] G-Code Modifier: CL Goals Encounter Problems Encounter Problems (Active) Balance Patient will maintain static standing balance for 3 minutes with mod assist in order to demonstrate decreased risk of falling. (Not Addressed) Start: 06/12/22 Expected End: 06/26/22 Patient will maintain static sitting balance for 10 minutes with SBA in order to demonstrate improved postural control and prepare for out of bed mobility. (Not Addressed) Start: 06/12/22 Expected End: 06/26/22 Bathing Patient will bathe body with mod assist (Not Addressed) Start: 06/12/22 Expected End: 06/26/22 Dressing Upper Extremities Patient will complete upper body dressing with mod assist (Not Addressed) Start: 06/12/22 Expected End: 06/26/22 Dressings Lower Extremities Patient will dress lower body with mod assist (Not Addressed) Start: 06/12/22 Expected End: 06/26/22 Eating Patient will feed self with min assist (Not Progressing) Start: 06/12/22 Expected End: 06/26/22 Grooming Patient will complete daily grooming tasks while sitting EOB with min assist (Progressing) Start: 06/12/22 Expected End: 06/26/22 Toileting Patient will complete toileting tasks at bedside commode with mod assist. (Not Addressed) Start: 06/12/22 Expected End: 06/26/22 Transfers Patient will complete functional transfer with rolling walker with mod assist in order to prepare for ambulation. (Not Addressed) Start: 06/12/22 Expected End: 06/26/22 Patient will perform bed mobility with mod assist in order to improve independence and prepare for out of bed mobility. (Progressing) Start: 06/12/22 Expected End: 06/26/22 Education Education Given To: Patient Education Provided: OT Role, Plan of Care, Orientation Education Provided Comments: orientation Education Method: Verbal Barriers to Learning: None Education Outcome: Continued education needed Therapy Time Individual Co-treatment Time In 933 Time Out 1004 Minutes 30 Timed Code Treatment Minutes: 28 Minutes (adl and ther ex) [facility] Progress Note Patient Name: Moises Madrid Patient Age: 61 y.o. Date: 06/17/2022 Alert, comfortable stable SUBJECTIVE: pt. In isolation Sob.c/o abd. Pain. No cp. PANCREATITIS. CHOLECYSTITIS. RENAL STONE, Stress . >> nl.. ef=65 % Leucocytosis.>>20. Blood vivjc=929 mg. Gi consult reviewed. Very lethargic & sleepy. No cp.pulse ox=96. VITALS BP (!) 150/93 (BP Location: Right arm, Patient Position: Lying) Pulse 104 Temp 37.2 C (99 F) (Oral) Resp 20 Ht 6' 2 (1.88 m) Wt 250 lb 14.1 oz (114 kg) SpO2 95% BMI 32.21 kg/m I&O Intake/Output Summary (Last 24 hours) at 06/17/2022 1051 Last data filed at 06/17/2022 0545 Gross per 24 hour Intake 350 ml Output 2550 ml Net -2200 ml OBJECTIVE: 10 systems reviewed as seen below Neck: Neck JVP 0, No carotid bruits, thyroid not enlarged Cardiovascular system: NSR, Short systolic murmur, no gallop Chest: normal breath sounds Abdomen: Abdomen soft/non-tender, no organomegaly, bowel sounds present Extremities: No edema, no varicosity Endocrine : Hypothyroidism No Diabites yes GI system : GIB No Renal : CKD No TUBE BENDER HAND : CVA/TIA No Musculoskeletal system : DJD No LAB Lab Results Component Value Date NA 130 (L) 06/17/2022 K 3.7 06/17/2022 CL 95 (L) 06/17/2022 CO2 33 (H) 06/17/2022 BUN 19 06/17/2022 CREATININE 0.82 06/17/2022 GLUCOSE 181 (H) 06/17/2022 CALCIUM 8.0 (L) 06/17/2022 Lab Results Component Value Date WBC 19.8 (H) 06/17/2022 HGB 12.6 (L) 06/17/2022 HCT 37.7 (L) 06/17/2022 MCV 90.0 06/17/2022 PLT 264 06/17/2022 Lab Results Component Value Date TROPONINI <0.012 06/08/2022 Lab Results Component Value Date TSH 3.216 06/07/2022 No components found for: LABA1C No components found for: EAG Recent Labs 06/17/22 0438 ALKPHOS 117 ALT 23 AST 35 BILITOT 0.6 LIPASE 1,078* Lab Results Component Value Date BNP 49 06/07/2022 CARDIAC TESTING EKG: Encounter Date: 06/07/22 ECG 12 lead Result Value Heart Rate 111 QRSD Interval 94 QT Interval 352 QTC Interval 479 P [place] 43 QRS [place] -36 T Wave [place] 60 OH Interval 160 Impression SINUS TACHYCARDIA LEFT AXIS DEVIATION LATE PRECORDIAL R/S TRANSITION LEFT VENTRICULAR HYPERTROPHY Electronically Signed On 06-10-2022 9:55:05 EST by Dimple Wade Echo: Transthoracic echocardiogram (TTE) complete with contrast, bubble, strain, and 3D PRN Result Date: 06/08/2022 Left Ventricle: Left ventricle size is normal. Normal wall thickness. Normal left ventricular systolic function. EF by 2D Simpsons Biplane is 70%. Normal wall motion. Right Ventricle: Right ventricle is mildly dilated. Normal systolic function. No significant valvular abnormalities. Troponin: Stress Test: Cardiac Cath: IMPRESSION : chest infilterate.>>possible pne./ hypoxia. Abd. Pain. 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 CHOLECYSTITIS, RENAL STONE, HYPONATREMIA, NA-=129. > RESTRICT FLUIDS. PLAN : Chest pain>>>Stress test normal., ef=65 %NO CP TODAY, Noncardiac cp. CARDIAC STATUS IS STABLE. Essential hypertension, benign>>>Meds Hyperlipidemia>>Meds>>Meds Troponin=0.012. ekg no change, Dr. Dickerson and advise changing Zosyn to Ertapenem therapy on 06/14. However, patient vital signs change becoming more tachycardic, tachypneic and febrile SHELTON HERMAN M.D., [facility] 06/17/2022 [facility] - Surgery [facility] Physicians Surgery Patient Name: Moises Madrid Date: 06/17/2022 Patient seen and examined by myself and I agree with SKY note below Resting in bed and appears comfortable Abdominal complaints about the same Abdomen soft tender epigastric no peritoneal signs minimal output in drainage bag Labs and imaging reviewed Assessment /Plan: Acute pancreatitis with peripancreatic fluid collection status post drainage and no growth seen in fluid No acute surgical issues and none anticipated this hospitalization Continue current management per medical team and infectious disease Surgery will continue to follow for now Patient counseled on risks,benefits, and alternatives of treatement plan at length. Patient states an understanding and willingness to proceed with plan. I personally supervised my SKY and/or resident in the evaluation and management of Moises Madrid in the development of a treatment plan for this patient. I personally interviewed the patient and performed an individual physical examination. In addition, I discussed the patient's condition and treatment options with them. I have also reviewed and agree with the past medical, family and social history and care plan unless otherwise noted. All of the patient's questions were answered. This case represents moderate level care including chart review, care coordination and face to face encounter was spent discussing/counseling the patient regarding the care plan for this patient. The patient was seen and examined independently and relevant data reviewed by myself. A full chart review was performed. Remigio Napier MD [facility] General Surgery 12:57 PM 06/17/2022 GENERAL SURGERY Progress Note PATIENT NAME: Moises Madrid TODAY'S DATE: 06/17/2022 SUBJECTIVE: General surgery follow up on pancreatitis. Some abdominal pain mainly at drain site. No acute events overnight. NO N/V, positive bowel function. Pain controlled Yes Other Complaints No Flatus/BM/or Ostomy function {Yes OBJECTIVE: VITALS: BP (!) 150/93 (BP Location: Right arm, Patient Position: Lying) Pulse 104 Temp 37.2 C (99 F) (Oral) Resp 20 Ht 6' 2 (1.88 m) Wt 250 lb 14.1 oz (114 kg) SpO2 95% BMI 32.21 kg/m INTAKE/OUTPUT: I/O last 3 completed shifts: In: 963 (8.5 mL/kg) [IV Piggyback:963] Out: 6800 (59.8 mL/kg) [Urine:6775 (1.7 mL/kg/hr); Drains:25] Weight: 113.8 kg No intake/output data recorded. REVIEW OF SYSTEMS: Pertinent positives and negatives as per interval history section PHYSICAL EXAM: CONSTITUTIONAL: A&O x 3, LUNGS: Resp effort easy and unlabored, breath sounds normal CARDIOVASCULAR: RRR ABDOMEN: soft non tender, non distended . Perc drain small amount of brown drainage in bag. MUSCULOSKELETAL: Normal range of motion NEUROLOGIC: Level of Alertness: alert PSYCHIATRIC: Speech is normal SKIN: Warm, dry, and intact Data: CBC: Recent Labs 06/15/22 0401 06/16/228 06/17/22437 WBC 19.0* 19.9* 19.8* HGB 12.2* 12.6* 12.6* HCT 37.1* 37.8* 37.7* PLT 186 229 264 BMP: Recent Labs 06/15/22 04006/16/228 06/17/22437 NA 128* 132* 130* K 4.2 4.0 3.7 CL 95* 95* 95* CO2 33* 32* 33* BUN 10 16 19 CREATININE 0.81 0.80 0.82 GLUCOSE 175* 173* 181* Hepatic: Recent Labs 06/15/22 0401 06/16/228 06/17/22 0438 AST 29 36 35 ALT 26 25 23 BILITOT 0.6 0.7 0.6 ALKPHOS 111 114 117 ASSESSMENT AND PLAN: 61 y/o M with an infected acute peripancreatic fluid collection s/p CT guided drain placement 06/10/22 - WBC increased to 19.8- Monitor leukocytosis - US abdomen with cholelithiasis without evidence of acute cholecystitis - Drain culture: Gram + cocci initially then addended by lab with no organisms seen- Continue drain mgmt- may be able to remove prior to discharge - CT repeat on 06/13 showing near complete resolution of focal fluid at greater curvature of stomach, anasarca small amount free fluid. Mild increase in atelectasis/infiltrates bilateral lower lobes - IV antibiotics - ID following- antibiotic management per them - Continue diet as tolerated - Medical mgmt per primary team - Psych following for major depression and suicidal ideation- psych meds restarted - Cardiology following Disposition: Perc drain minimal brown old blood appearing drainage. No acute surgical indication.Will continue to follow. Patient counseled on risks, benefits, and alternatives of treatment plan today. Patient states an understanding and willingness to proceed with plan. Raimundo Riley APRN - [employer]ED NURSE Images from the original note were not included. [facility] - Infectious Diseases Attending Progress Note Subjective: F/U for acute pancreatitis with peripancreatic fluid collection, s/p percutaneous drain catheter placement on 06/10/22, yielding 150 mL of bloody fluid, Cx -negative. A rept CT abdomen on 06/13 showed near complete resolution of focal fluid collection noted previously. He was found laying on bed, alert, fever decreased, c/o abdominal pain, weakness, decreased appetite, difficulty to speak clearly, weakness of right side of his body; appeared debilitated and ill. He had buckley catheter in place, and abdominal drain bag had scant material. He has h/o TBI, stroke and residual hemiplegia. He was examined; notes, labs and imagings were reviewed, and treatment plan was discussed. Objective: Vitals: Patient Vitals for the past 24 hrs: BP Temp Temp src Pulse Resp SpO2 Weight 06/17/22 0600 -- -- -- -- -- -- 114 kg (250 lb 14.1 oz) 06/17/22 0405 (!) 150/93 37.2 C (99 F) Oral 104 20 95 % -- 06/17/22 0002 (!) 143/93 37.6 C (99.7 F) Oral 106 23 95 % -- 06/16/22 2102 -- -- -- 103 18 100 % -- 06/16/22 1947 (!) 153/93 36.2 C (97.1 F) Oral 108 20 96 % -- 06/16/22 1457 -- 36.1 C (97 F) -- -- -- -- -- 06/16/22 1200 (!) 157/89 -- -- (!) 115 21 96 % -- 06/16/22 1142 -- 37.2 C (99 F) -- -- -- -- -- Procal 0.47 Crp 195.0 Physical Exam Vitals and nursing note reviewed. Constitutional: General: He is not in acute distress. Appearance: He is well-developed. He is ill-appearing. Comments: Awake, appeared ill. Responds but difficulty to speak in full sentence. HENT: Head: Normocephalic and atraumatic. Right Ear: External ear normal. Left Ear: External ear normal. Nose: Nose normal. Mouth/Throat: Mouth: Mucous membranes are moist. Pharynx: Oropharynx is clear. No oropharyngeal exudate. Eyes: General: No scleral icterus. Extraocular Movements: Extraocular movements intact. Conjunctiva/sclera: Conjunctivae normal. Pupils: Pupils are equal, round, and reactive to light. Neck: Thyroid: No thyromegaly. Vascular: No JVD. Cardiovascular: Rate and Rhythm: Normal rate and regular rhythm. Pulses: Normal pulses. Heart sounds: Normal heart sounds. No murmur heard. No friction rub. No gallop. Pulmonary: Effort: No respiratory distress. Breath sounds: No stridor. Rhonchi present. No wheezing or rales. Comments: Short shallow breaths, moist breath sounds. Abdominal: General: There is no distension. Palpations: Abdomen is soft. There is no mass. Tenderness: There is abdominal distension and tenderness. There is no guarding or rebound. Hernia: No hernia is present. Comments: Abdominal drain site clean. Bloody material with purulence. diffuse tenderness . Genitourinary: Comments: Buckley with clear yellow urine. Musculoskeletal: General: No swelling or deformity. Normal range of motion. Cervical back: Normal range of motion and neck supple. Right lower leg: No edema. Left lower leg: No edema. Lymphadenopathy: Cervical: No cervical adenopathy. Skin: General: Skin is warm and dry. Coloration: Skin is not jaundiced. Findings: No rash. Comments: Tinea pedis. Erosion r 2nd toe. Neurological: General: No focal deficit present. Mental Status: Mental status is at baseline. Cranial Nerves: No cranial nerve deficit. Deep Tendon Reflexes: Reflexes normal. Comments: Weak RLE. Psychiatric: Mood and Affect: Mood normal. Behavior: Behavior normal. Labs: Recent Labs 06/15/2240006/16/2231706/17/22 0438 NA 128* 132* 130* K 4.2 4.0 3.7 CL 95* 95* 95* CO2 33* 32* 33* BUN 10 16 19 CREATININE 0.81 0.80 0.82 GLUCOSE 175* 173* 181* CALCIUM 8.0* 8.1* 8.0* PROT 6.0* 6.2* 6.5 BILITOT 0.6 0.7 0.6 ALKPHOS 111 114 117 AST 29 36 35 ALT 26 25 23 PROCAL -- 0.46* -- Recent Labs 06/15/2240006/16/2231706/17/22 0438 WBC 19.0* 19.9* 19.8* HGB 12.2* 12.6* 12.6* HCT 37.1* 37.8* 37.7* PLT 186 229 264 LYMPHOPCT 6* 3* 5* MONOPCT 6 5 7 Procal 0.46 Crp 195.0 Lipase 1078 434 339 Micro: No results for input(s): COVID19 in the last 72 hours. 06/15/2022 2131 06/17/2022 0401 Blood culture #2 - Suspected Infection [[id number]] Blood, Venous Preliminary result Component Value Blood Culture No growth at 24 hours P 06/15/2022 2105 06/17/2022 0401 Blood culture #1 - Suspected Infection [[id number]] Blood, Venous Preliminary result Component Value Blood Culture No growth at 24 hours P 06/15/2022 1011 06/17/2022 0933 Respiratory culture [[id number]] (Abnormal) Sputum Final result Component Value Respiratory culture Few respiratory vikram present. Gram Stain Result Moderate Polymorphonuclear leukocytes per low power field Abnormal Moderate Epithelial cells per low power field Abnormal Rare Gram positive cocci Abnormal Rare Gram negative diplococci Abnormal 06/15/2022 1010 06/15/2022 2127 Pneumonia PCR Panel [[id number]] (Abnormal) Sputum Final result Component Value Staphylococcus aureus Not Detected Streptococcus agalactiae Not Detected Streptococcus pneumoniae Not Detected Streptococcus pyogenes Not Detected Haemophilus influenzae Not Detected Moraxella catarrhalis Not Detected Acinetobacter baumannii complex Not Detected Enterobacter cloacae complex Not Detected Escherichia coli Not Detected Klebsiella (Enterobacter) aerogenes Not Detected Klebsiella oxytoca Not Detected Klebsiella pneumoniae Not Detected Proteus spp Not Detected Pseudomonas aeruginosa Not Detected Serratia marcescens Not Detected Chlamydia pneumoniae Not Detected Legionella pneumophila Not Detected Mycoplasma pneumoniae Not Detected Adenovirus Not Detected Coronavirus Detected Abnormal Human Metapneumovirus Not Detected Human Rhinovirus/Enterovirus Not Detected Influenza A Not Detected Influenza B Not Detected Parainfluenza virus Not Detected Respiratory Syncytial Virus Not Detected Collected Updated Procedure Result Status 06/11/2022133306/12/2022 0002 Pneumonia PCR Panel [[id number]] Sputum Final result Component Value Staphylococcus aureus Not Detected Streptococcus agalactiae Not Detected Streptococcus pneumoniae Not Detected Streptococcus pyogenes Not Detected Haemophilus influenzae Not Detected Moraxella catarrhalis Not Detected Acinetobacter baumannii complex Not Detected Enterobacter cloacae complex Not Detected Escherichia coli Not Detected Klebsiella (Enterobacter) aerogenes Not Detected Klebsiella oxytoca Not Detected Klebsiella pneumoniae Not Detected Proteus spp Not Detected Pseudomonas aeruginosa Not Detected Serratia marcescens Not Detected Chlamydia pneumoniae Not Detected Legionella pneumophila Not Detected Mycoplasma pneumoniae Not Detected Adenovirus Not Detected Coronavirus Not Detected Human Metapneumovirus Not Detected Human Rhinovirus/Enterovirus Not Detected Influenza A Not Detected Influenza B Not Detected Parainfluenza virus Not Detected Respiratory Syncytial Virus Not Detected 06/11/2022 1334 06/13/2022 0722 Respiratory culture [[id number]] Sputum Preliminary result Component Value Respiratory culture Rare respiratory vikram present. P Gram Stain Result Rare Epithelial cells per low power field P Moderate Polymorphonuclear leukocytes per low power field P No organisms seen P 06/10/2022 1433 06/13/2022 0924 Aerobic and Anaerobic Culture with Stain [[id number]] Abscess from Abdomen In process Component Value No component results 06/10/2022 1433 06/13/2022 0924 Culture, Aerobic Bacteria with Gram Stain [[id number]] Abscess from Abdomen Final result Component Value Culture No growth at 72 hours Gram Stain Result Rare Polymorphonuclear leukocytes per low power field No organisms seen Corrected result: Previously reported as Few Gram negative cocci (see Result History) on 06/11/2022 at 1209 EST 06/10/2022 1433 06/12/2022 1200 Anaerobic culture [[id number]] Abscess from Abdomen Preliminary result Component Value Culture No growth to date. Incubation continues P 06/10/2022 1243 06/10/2022 2302 Legionella and Streptococcus Urine Antigen [[id number]] Urine, Clean Catch Final result Component Value Legionella pneumophila Ag Not Detected Streptococcus pneumoniae Ag Not Detected 06/10/2022 1000 06/10/2022 1338 SARS-CoV-2 and Respiratory PCR Panel [[id number]] Swab from Nasopharynx Final result Component Value SARS-CoV-2 Not Detected Adenovirus Not Detected Coronavirus HKU1 Not Detected Coronavirus NL63 Not Detected Coronavirus 229E Not Detected Coronavirus OC43 Not Detected Human Metapneumovirus Not Detected Human Rhinovirus/Enterovirus Not Detected Influenza A Not Detected Influenza B Not Detected Parainfluenza 1 Not Detected Parainfluenza 2 Not Detected Parainfluenza 3 Not Detected Parainfluenza 4 Not Detected Respiratory Syncytial Virus Not Detected Bordetella pertussis Not Detected Bordetella parapertussis Not Detected Chlamydia pneumoniae Not Detected Mycoplasma pneumoniae Not Detected 06/10/2022 0958 06/13/2022 1401 Blood culture #1 - Suspected Infection [[id number]] Blood, Venous Preliminary result Component Value Blood Culture No growth at 72 hours P 06/10/2022 0958 06/13/2022 1401 Blood culture #2 - Suspected Infection [[id number]] Blood, Venous Preliminary result Component Value Blood Culture No growth at 72 hours P 06/07/2022 2345 06/08/2022 0035 SARS-CoV-2, Flu A/B, and RSV Combo [[id number]] Swab from Nasopharynx Final result Component Value SARS-CoV-2 Not Detected Respiratory Syncytial Virus Not Detected Influenza A Not Detected Influenza B Not Detected Lines: PIV site ok Radiography/Echo/Other: Reviewed CT abdomen pelvis w contrast [[id number]] Collected: 06/13/222204 Order Status: Completed Updated: 06/13/222220 Narrative: Patient Name: MOISES MADRID : 1960 Exam Date/Time: 06/13/2022 17:39 Procedure: CT ABDOMEN PELVIS W CONTRAST Ordering Provider: EDGAR JONATHAN Reason For Exam: Abdominal pain, acute, nonlocalized CT ABDOMEN AND PELVIS WITH CONTRAST CLINICAL INDICATION: Abdominal pain, acute, nonlocalized TECHNIQUE: CT scan of the abdomen and pelvis, with IV contrast. Multiplanar reformations. 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 COMPARISON: June,. FINDINGS: Abdomen: Visualized lung bases again show partially confluent opacities in the right middle and bilateral lower lobes, with some air bronchograms mildly increased. Very small bilateral pleural effusions, about the same. Interval placement of percutaneous pigtail catheter extending into focal fluid noted previously along the greater curvature the stomach, which is considerably decreased and nearly resolved. Pancreas again prominent and shows diffuse peripancreatic fat stranding or infiltration, mildly increased. Fluid attenuation again seen adjacent to pancreatic tail, extending caudally along the anterior pararenal space and paracolic gutter not appreciably changed. No radiopaque gallstones. Liver shows diffusely decreased attenuation without focal abnormality. Spleen without significant abnormality. Punctate calcification and tiny cyst again noted in the right kidney without significant hydronephrosis. Left kidney grossly unremarkable. Adrenal glands without significant abnormality. Pelvis: Bowel grossly unremarkable. Appendix within normal limits. Very small amount of nonspecific, free fluid noted along right paracolic gutter and in the pelvis. No discrete abscess. Abdominal aorta is nonaneurysmal. Buckley catheter noted in decompressed urinary bladder. Axial skeleton grossly intact, with degenerative change again noted in the lumbar spine. Diffuse subcutaneous edema in the trunk and pelvis, new in the interval. Impression: 1. Interval placement of percutaneous pigtail catheter and near complete resolution of focal fluid noted previously along the greater curvature of the stomach. 2. Findings compatible with pancreatitis, mildly increased in the interval. 3. Hepatic steatosis, and nonobstructing right renal calcification. 4. Very small amount of nonspecific free fluid in the abdomen and pelvis, similar to comparison. Anasarca, new in the interval. 5. Mild atelectasis or infiltrates in right middle and bilateral lower lobes, mildly increased in the interval. Report Dictated on Electronically Signed By: Merrick Lopez Electronically Signed Date/Time: 06/13/2022 10:20 PM EST Procedure Component Value Units Date/Time US abdomen limited [[id number]] Collected: 06/13/22 0824 Order Status: Completed Updated: 06/13/2230 Narrative: Patient Name: MOISES MADRID : 1960 Exam Date/Time: 06/13/2022 07:20 Procedure: US ABDOMEN LIMITED Ordering Provider: CORTEZ JONATHAN Reason For Exam: PANCREATITIS - ACUTE ULTRASOUND ABDOMEN RUQ CLINICAL HISTORY:PANCREATITIS - ACUTE COMPARISON: CT 06/10/2022 TECHNIQUE: Grayscale sonographic images were obtained of the right upper quadrant. Color Doppler was utilized. FINDINGS: Portions the exam are limited by overlying bowel gas, patient immobility and body habitus, as well as due to indwelling epigastric drainage catheter. Liver: Left lobe is not well visualized. Right hepatic parenchymal echotexture is slightly heterogeneous and increased. No discrete lesions on submitted images. Biliary system: No sonographic evidence of intrahepatic biliary ductal dilatation. The common bile duct is normal in caliber and measures 2 mm. Gallbladder: Gallbladder appears well-distended. Several small stones are present. No pericholecystic fluid or gallbladder wall thickening. There was a negative sonographic Cole's sign reported by the registered vascular technologist (rvt). Pancreas: Obscured by bowel gas. Right Kidney: Largely obscured by bowel gas. Additional findings: Trace perihepatic ascites. Impression: 1. Technically limited evaluation. In particular the left hepatic lobe, pancreas, and right kidney are not well visualized or evaluated. 2. Cholelithiasis without sonographic evidence of acute cholecystitis. 3. No biliary ductal dilatation Report Dictated on Electronically Signed By: Cheko Chapa Electronically Signed Date/Time: 06/13/2022 8:29 AM EST XR chest 1 view [[id number]] Collected: 06/12/22 1254 Order Status: Completed Updated: 06/12/22 1257 Narrative: Patient Name: MOSIES MADRID : 1960 Exam Date/Time: 06/12/2022 12:43 Procedure: XR CHEST 1 VIEW Ordering Provider: EDGAR JONATHAN Reason For Exam: DYSPNEA EXAMINATION: XR chest AP. EXAM DATE & TIME: 06/12/2022 12:43 PM EST INDICATION: DYSPNEA ADDITIONAL INFORMATION: 61-year-old male with dyspnea presents for evaluation COMPARISON: Chest radiographs dated 06/10/2022, 06/07/2022 and 07/27/2013 TECHNIQUE: Frontal view of the chest was obtained. FINDINGS: Lines/support devices: Cardiac leads and defibrillator pads project over the chest, somewhat limiting evaluation. Cardiomediastinal silhouette: Obscured. Lungs/pleura: There are low lung volumes. Bibasilar scarring/atelectasis is seen. Indistinctness of the costophrenic angles is noted. No evidence of pneumothorax. Osseous structures: Degenerative changes of the spine and shoulders are seen. No acute osseous abnormality is demonstrated. The bones are osteopenic. Other findings: None. Impression: Low lung volumes with bibasilar scarring/atelectasis and indistinctness of the costophrenic angles, suggestive of small bilateral pleural effusions. Report Dictated on Electronically Signed By: Asad Mccarthy Electronically Signed Date/Time: 06/12/2022 12:56 PM EST XR foot 3+ views right [[id number]] Collected: 06/12/221249 Order Status: Completed Updated: 06/12/221252 Narrative: Patient Name: MOISES MADRID : 1960 [facility]#: [id number] Exam Date/Time: 06/12/2022 12:44 Procedure: XR FOOT 3+ VIEWS RIGHT Ordering Provider: EDGAR JONATHAN Reason For Exam: r/o OM RIGHT FOOT: CLINICAL INDICATION: Possible osteomyelitis. TECHNIQUE: AP, Lat, Oblique COMPARISON: 05/09/2011 FINDINGS: There is no evidence for fracture or dislocation. Degenerative changes in the midfoot and first MTP joint. Dense Achilles tendon calcifications again seen. Dorsal soft tissue swelling overlying the mid foot. No evidence of soft tissue gas, osseous erosive change or periostitis. Note that if there is persistent concern for osteomyelitis, MRI is a more sensitive means of evaluation. Report Dictated on Electronically Signed By: Ezra Guthrie Electronically Signed Date/Time: 06/12/2022 12:[address] guided abscess fluid collection drainage [[id number]] Collected: 06/10/22 1607 Order Status: Completed Updated: 06/10/22 1610 Narrative: Patient Name: MOISES MADRID : 1960 [facility]#: [id number] Exam Date/Time: 06/10/2022 14:50 Procedure: CT GUIDED ABSCESS FLUID COLLECTION DRAINAGE Ordering Provider: EDGAR JONATHAN Reason For Exam: PROCEDURE: Drainage catheter placement Procedural Personnel Attending physician(s): Jus Barlow Indication: Peripancreatic fluid collection Additional clinical history: None Complications: No immediate complications. Impression: Percutaneous placement of a 10 Prydeinig drainage catheter into peripancreatic fluid collection, yielding 150 mL of bloody fluid. __ PROCEDURE SUMMARY: - Intraperitoneal drainage catheter placement under CT guidance - Additional procedure(s): None PROCEDURE DETAILS: Pre-procedure Consent: Informed consent for the procedure including risks, benefits and alternatives was obtained and time-out was performed prior to the procedure. Preparation: The site was prepared and draped using maximal sterile barrier technique including cutaneous antisepsis. Anesthesia/sedation Moderate sedation was provided under my supervision with patient monitored by a trained radiology nurse. Total sedation time of 25 minutes. Drainage catheter placement The patient was positioned supine. Initial imaging was performed. Local anesthesia was administered. The fluid collection was accessed using an access needle followed by wire insertion and serial dilation and a drainage catheter was placed. Position of the drainage catheter within the fluid collection was confirmed. - Initial imaging findings: Peripancreatic fluid collection - Drainage catheter placed: 10 Prydeinig APD - External catheter securement: Non-absorbable suture and adhesive anchoring device - Post-drainage imaging findings: Drainage catheter in adequate position with pigtail in the most superior aspect of the fluid collection. Contrast Contrast agent: None Contrast volume (mL): [address] dose length product (mGy-cm): 811 Additional Details Additional description of procedure: None Equipment details: None Specimens removed: Aspirated fluid was sent for analysis. Estimated blood loss (mL): Less than 10 Report Dictated on Electronically Signed By: Jus Barlow Electronically Signed Date/Time: 06/10/2022 4:[address] abdomen pelvis wo IV contrast [[id number]] Collected: 06/10/22914 Order Status: Completed Updated: 06/10/22930 Narrative: Patient Name: MOISES MADRID : 1960 [facility]#: [id number] Exam Date/Time: 06/10/2022 08:50 Procedure: CT ABDOMEN PELVIS WO IV CONTRAST Ordering Provider: EDGAR JONATHAN Reason For Exam: Abdominal pain, acute, nonlocalized CT ABDOMEN AND PELVIS WITHOUT IV CONTRAST CLINICAL INDICATION: Acute abdominal pain, nonlocalized TECHNIQUE: Axial CT images through the through the abdomen and pelvis with 3 mm reconstruction without intravenous intravenous contrast media. Enteric contrast was not administered. Coronal and sagittal reconstructions included. 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 COMPARISON: None. FINDINGS: Examination is somewhat limited in evaluation of solid organs and vascular structures due to the lack of intravenous contrast. Additional limitations: Somewhat limited evaluation of the GI tract without enteric contrast. Mild motion and streak artifact limits evaluation to some extent Lung base: Trace to small pleural effusions with mild bibasilar atelectasis/pneumonia. Liver: Hepatic steatosis. Gallbladder/Biliary tree: Gallbladder is somewhat inconspicuous possibly due to the presence of sludge or less likely calculi.. No intra or extrahepatic biliary ductal dilatation Spleen: Within normal limits. Pancreas: Pancreas is heterogeneous with surrounding poorly defined and more confluent fluid particularly at the level of the pancreatic body and tail with extension along the anterior left pararenal space as well as into the lesser sac. Small pocket of loculated fluid along the greater curvature on series 3 image 46 measuring 5.0 x 3.6 cm with distal extension. Fluid demonstrates borderline complexity. Adrenals: No discrete mass or nodule detected. Kidneys/pelvic organs: No obstructive uropathy. Punctate nonobstructing calculus right kidney. Urinary bladder is collapsed limiting evaluation. Borderline prostamegaly. GI tract: A few prominent air distended loops of small bowel without evidence of mechanical obstruction. Normal appendix is identified. Mild to moderate amount retained colonic stool more so proximally. No colonic wall thickening or pericolonic stranding. . Peritoneal cavity/retroperitoneum: No pneumatosis or pneumoperitoneum. No bulky adenopathy. Small amount of lower abdominal/pelvic ascites which appears to be simple in complexity. Vasculature: Normal caliber abdominal aorta. Osseous structures/soft tissues: Degenerative spondylosis in the visualized spine with mild scoliotic curvature. Suspected developmental spinal canal narrowing. Tiny left greater than right fat-containing inguinal hernia without bowel involvement. Trace body wall edema. Gynecomastia Impression: 1. Acute pancreatitis with surrounding poorly defined and more confluent fluid particularly at the level of the pancreatic body and tail with extension along the anterior left pararenal space as well as into the lesser sac. Small pocket of loculated fluid along the greater curvature of the stomach measures 5.0 x 3.6 cm with distal extension. Fluid demonstrates borderline complexity. 2. Nonobstructing punctate right renal calculus. 3. Trace to small pleural effusions with mild bibasilar atelectasis/pneumonia. 4. Questionable trace gallbladder sludge/calculi. Report Dictated on Electronically Signed By: Cheko Chapa Electronically Signed Date/Time: 06/10/2022 9:30 AM EST XR chest 1 view [[id number]] Collected: 06/10/22843 Order Status: Completed Updated: 06/10/22850 Narrative: Patient Name: MOISES MADRID : 1960 [facility]#: [id number] Exam Date/Time: 06/10/2022 08:36 Procedure: XR CHEST 1 VIEW Ordering Provider: EDGAR JONATHAN Reason For Exam: DYSPNEA CHEST RADIOGRAPH CLINICAL INDICATION: Dyspnea TECHNIQUE: AP COMPARISON: 05/30/2022 chest radiograph FINDINGS: Cardiomediastinal: Cardiomediastinal silhouette is normal in size and configuration. Lungs: There are low lung volumes with bronchovascular crowding. Questionable retrocardiac opacity. No pleural effusion or pneumothorax. Osseous structures: No acute osseous abnormality. Impression: Questionable retrocardiac opacity, please correlate with clinical concern for developing pneumonia. Low lung volumes with bronchovascular crowding. Report Dictated on Electronically Signed By: Barry Castillo Electronically Signed Date/Time: 06/10/2022 8:50 AM EST XR chest 1 view [[id number]] Collected: 06/07/222325 Order Status: Completed Updated: 06/07/222327 Narrative: Patient Name: MOISES MADRID : 1960 [facility]#: [id number] Exam Date/Time: 06/07/2022 23:25 Procedure: XR CHEST 1 VIEW Ordering Provider: CASTELAN NICOLE Reason For Exam: chest pain CHEST - PORTABLE: CLINICAL INDICATION: Chest pain. . TECHNIQUE: Portable AP COMPARISON: 07/27/2013 Impression: FINDINGS/IMPRESSION: Limitations: Slightly limited by patient positioning Lines, tubes, and devices: None Cardiomediastinal silhouette: Heart size is within normal limits. Lungs/Pleura: Elevation of the right hemidiaphragm, similar to prior study. Borderline central pulmonary vascular congestion. No consolidation, sizable pleural effusions, or pneumothorax. Osseous structures: Degenerative spondylosis in the visualized spine. 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 Soft tissues: No soft tissue abnormality is detected. Report Dictated on Workstation: [id number] Electronically Signed By: Cheko Chapa Electronically Signed Date/Time: 06/07/2022 11:27 PM EST Antimicrobials, Start/End Dates: Pip/tazo 06/10-7 Vanco 06/12 Ceftr 06/10 Azithro 06/10 Flor 06/15- Vanco 06/15- Impression: SIRS. Improved. Acute pancreatitis with peripancreatic fluid collection. S/p percutaneous drain catheter placement on 06/10/22. Cx -neg. Follow lipase . Pneumonia per CXR. sputum cx -neg. Abdominal distension and pain. Improving. Lethargy and debility. H/o TBI, stroke and Rt hemiplegia. Plan: Pt sick due to SIRS due to acute pancreatitis with peripancreatic fluid collection, underwent percutaneous drain placement, Cxs -negative. Fever decreased, leukocytosis stable. A rept CT abdomen on 06/13 showed near complete resolution of focal fluid collection noted previously. Blood, pancreatic fluid and sputum cultures are unremarkable, which may indicate an inflammatory process only. He received antimicrobials for 8 days, will discontinue. Please call with any further question. Total time 50 minutes on this day of encounter includes counseling, coordinating plan of care, record and documentation review before and after visit including documentation and time not explicitly included on EMR time stamp for accounting for open encounter. Images from the original note were not included. Hospitalist Progress Note 06/17/2022 [id number]: Please page me ([phone]) for patient care issues. [phone]: Please page [facility] Hospitalist for any issues. Subjective: Admit Date: 06/07/2022 PCP: Demetrius Fenton Room#: 232-06/[id number] A Interval History: More alert this am. AO x 3 on exam. Feels slightly better but remains acutely ill. Adult diet Dysphagia - Pureed; Moderately Thick (Honey); Low Fat (less than or equal to 50 gm/day) @[id number]@ 24HR INTAKE/OUTPUT: Intake/Output Summary (Last 24 hours) at 06/17/2022 0744 Last data filed at 06/17/2022 0545 Gross per 24 hour Intake 350 ml Output 3400 ml Net -3050 ml Past Medical History: Past Medical History: Diagnosis Date Anxiety Ataxia Bipolar disorder (HCC) Chronic pain Constipation Contracture, right hand Depression Dysphagia Dysphagia Dysphonia Edema GERD (gastroesophageal reflux disease) Headache Hemiplegia (CMS/HCC) (HCC) Hyperlipidemia Hypertension Insomnia Muscle weakness Neuropathy TBI (traumatic brain injury) LABS: CBC: Recent Labs 06/15/22 0401 06/16/228 06/17/22 0438 WBC 19.0* 19.9* 19.8* RBC 4.03* 4.11* 4.18* HGB 12.2* 12.6* 12.6* HCT 37.1* 37.8* 37.7* MCV 92.1 92.0 90.0 RDW 13.8 13.6 13.9 PLT 186 229 264 BMP: Recent Labs 06/15/22 0401 06/16/228 06/17/22 0438 NA 128* 132* 130* K 4.2 4.0 3.7 CL 95* 95* 95* CO2 33* 32* 33* BUN 10 16 19 CREATININE 0.81 0.80 0.82 GLUCOSE 175* 173* 181* CALCIUM 8.0* 8.1* 8.0* ANIONGAP 0* 5 2* LIVER PROFILE: Recent Labs 06/15/22 0401 06/16/22 0318 06/17/22 0438 AST 29 36 35 ALT 26 25 23 BILITOT 0.6 0.7 0.6 ALKPHOS 111 114 117 PROT 6.0* 6.2* 6.5 PT/INR: No results for input(s): PROTIME, INR in the last 72 hours. CARDIAC ENZYMES: No results for input(s): TROPONINI in the last 72 hours. Procalcitonin: Lab Results Component Value Date PROCAL 0.46 (H) 06/16/2022 COVID-19 PCR: No results for input(s): COVID19 in the last 72 hours. Objective: Vitals: BP (!) 150/93 (BP Location: Right arm, Patient Position: Lying) Pulse 104 Temp 37.2 C (99 F) (Oral) Resp 20 Ht 6' 2 (1.88 m) Wt 250 lb 14.1 oz (114 kg) SpO2 95% BMI 32.21 kg/m Pulse Ox: SpO2 Av % Min: 95 % Max: 100 % Supplemental O2: O2 Flow Rate (L/min): 4 L/min General appearance: Appears critically ill Respiratory: Scattered rhonic throughout, increased RR Cardiovascular: Tachycardic, Regular rhythm with normal S1/S2 without murmurs, rubs or gallops. Abdomen: Soft, non-tender, non-distended with normal bowel sounds. No rebound or guarding. Percutaneous drain in place Musculoskeletal: No clubbing, cyanosis or edema bilaterally. Full range of motion without deformity, +2 peripheral pulses in all extremities. Skin: Bilateral LE skin changes, appear chronic in nature Neurologic: Not following commands. AO x 0. Medications: ARIPiprazole, 5 mg, Oral, Daily aspirin, 81 mg, Oral, Daily divalproex sprinkle, 250 mg, Oral, 2 times per day enoxaparin, 40 mg, SubCUTAneous, Daily furosemide, 40 mg, IntraVENous, BID guaiFENesin, 600 mg, Oral, BID influenza vaccine split quadravalent, 0.5 mL, IntraMUSCular, Once melatonin, 10 mg, Oral, Nightly memantine, 10 mg, Oral, BID meropenem, 2,000 mg, IntraVENous, q8h miconazole, , Topical, BID senna-docusate sodium, 2 tablet, Oral, Daily vancomycin, 1,250 mg, IntraVENous, q12h venlafaxine, 75 mg, Oral, BID Radiology Results (last 21 days) XR chest 1 view [[id number]] Collected: 06/16/22427 Order Status: Completed Updated: 06/16/22516 Narrative: Patient Name: MOISES MADRID : 1960 Exam Date/Time: 06/16/2022 05:16 Procedure: XR CHEST 1 VIEW Ordering Provider: NELSON HASSAN Reason For Exam: DYSPNEA CLINICAL INFORMATION: Dyspnea [place] 0424 hours is provided and compared with a previous study dated 06/15/2022 FINDINGS: The heart size is normal. There are bibasilar infiltrates and effusions. There is prominence of the interstitium and central pulmonary vasculature. Impression: Prominence of the central pulmonary vasculature consistent with moderate congestive heart failure/fluid overload, slightly improved from the prior exam. Report Dictated on Electronically Signed By: Loki Roberts Electronically Signed Date/Time: 06/16/2022 4:29 AM EST XR chest 1 view [[id number]] Collected: 06/15/221131 Order Status: Completed Updated: 06/15/221133 Narrative: Patient Name: MOISES MADRID : 1960 Exam Date/Time: 06/15/2022 10:31 Procedure: XR CHEST 1 VIEW Ordering Provider: NELSON HASSAN Reason For Exam: Shortness of breath CLINICAL INFORMATION: Shortness of breath. Portable view of the chest at 1010 hours is provided and compared with a previous study dated 06/12/2022. FINDINGS: The heart size is normal. There are bibasilar infiltrates and effusions. There is prominence of the interstitium and central pulmonary vasculature. Impression: 1. Worsening infiltrates. 2. Prominence of the central pulmonary vasculature consistent with moderate congestive heart failure/fluid overload. This has also progressed. Report Dictated on Electronically Signed By: Chaz Poon Electronically Signed Date/Time: 06/15/2022 11:33 AM EST Procedure Component Value Units Date/Time CT abdomen pelvis w contrast [[id number]] Collected: 06/13/222204 Order Status: Completed Updated: 06/13/222220 Narrative: Patient Name: MOISES MADRID : 1960 [facility]#: [id number] Exam Date/Time: 06/13/2022 17:39 Procedure: CT ABDOMEN PELVIS W CONTRAST Ordering Provider: EDGAR JONATHAN Reason For Exam: Abdominal pain, acute, nonlocalized CT ABDOMEN AND PELVIS WITH CONTRAST CLINICAL INDICATION: Abdominal pain, acute, nonlocalized TECHNIQUE: CT scan of the abdomen and pelvis, with IV contrast. Multiplanar reformations. 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 COMPARISON: June,. FINDINGS: Abdomen: Visualized lung bases again show partially confluent opacities in the right middle and bilateral lower lobes, with some air bronchograms mildly increased. Very small bilateral pleural effusions, about the same. Interval placement of percutaneous pigtail catheter extending into focal fluid noted previously along the greater curvature the stomach, which is considerably decreased and nearly resolved. Pancreas again prominent and shows diffuse peripancreatic fat stranding or infiltration, mildly increased. Fluid attenuation again seen adjacent to pancreatic tail, extending caudally along the anterior pararenal space and paracolic gutter not appreciably changed. No radiopaque gallstones. Liver shows diffusely decreased attenuation without focal abnormality. Spleen without significant abnormality. Punctate calcification and tiny cyst again noted in the right kidney without significant hydronephrosis. Left kidney grossly unremarkable. Adrenal glands without significant abnormality. Pelvis: Bowel grossly unremarkable. Appendix within normal limits. Very small amount of nonspecific, free fluid noted along right paracolic gutter and in the pelvis. No discrete abscess. Abdominal aorta is nonaneurysmal. Buckley catheter noted in decompressed urinary bladder. Axial skeleton grossly intact, with degenerative change again noted in the lumbar spine. Diffuse subcutaneous edema in the trunk and pelvis, new in the interval. Impression: 1. Interval placement of percutaneous pigtail catheter and near complete resolution of focal fluid noted previously along the greater curvature of the stomach. 2. Findings compatible with pancreatitis, mildly increased in the interval. 3. Hepatic steatosis, and nonobstructing right renal calcification. 4. Very small amount of nonspecific free fluid in the abdomen and pelvis, similar to comparison. Anasarca, new in the interval. 5. Mild atelectasis or infiltrates in right middle and bilateral lower lobes, mildly increased in the interval. Report Dictated on Electronically Signed By: Merrick Lopez Electronically Signed Date/Time: 06/13/2022 10:20 PM EST US abdomen limited [[id number]] Collected: 06/13/22823 Order Status: Completed Updated: 06/13/22829 Narrative: Patient Name: MOISES MADRID : 1960 Exam Date/Time: 06/13/2022 07:20 Procedure: US ABDOMEN LIMITED Ordering Provider: CORTEZ JONATHAN Reason For Exam: PANCREATITIS - ACUTE ULTRASOUND ABDOMEN RUQ CLINICAL HISTORY:PANCREATITIS - ACUTE COMPARISON: CT 06/10/2022 TECHNIQUE: Grayscale sonographic images were obtained of the right upper quadrant. Color Doppler was utilized. FINDINGS: Portions the exam are limited by overlying bowel gas, patient immobility and body habitus, as well as due to indwelling epigastric drainage catheter. Liver: Left lobe is not well visualized. Right hepatic parenchymal echotexture is slightly heterogeneous and increased. No discrete lesions on submitted images. Biliary system: No sonographic evidence of intrahepatic biliary ductal dilatation. The common bile duct is normal in caliber and measures 2 mm. Gallbladder: Gallbladder appears well-distended. Several small stones are present. No pericholecystic fluid or gallbladder wall thickening. There was a negative sonographic Cole's sign reported by the registered vascular technologist (rvt). Pancreas: Obscured by bowel gas. Right Kidney: Largely obscured by bowel gas. Additional findings: Trace perihepatic ascites. Impression: 1. Technically limited evaluation. In particular the left hepatic lobe, pancreas, and right kidney are not well visualized or evaluated. 2. Cholelithiasis without sonographic evidence of acute cholecystitis. 3. No biliary ductal dilatation Report Dictated on Electronically Signed By: Cheko Chapa Electronically Signed Date/Time: 06/13/2022 8:29 AM EST XR chest 1 view [[id number]] Collected: 06/12/22 1254 Order Status: Completed Updated: 06/12/22 1257 Narrative: Patient Name: MOISES MADRID : 1960 Exam Date/Time: 06/12/2022 12:43 Procedure: XR CHEST 1 VIEW Ordering Provider: EDGAR JONATHAN Reason For Exam: DYSPNEA EXAMINATION: XR chest AP. EXAM DATE & TIME: 06/12/2022 12:43 PM EST INDICATION: DYSPNEA ADDITIONAL INFORMATION: 61-year-old male with dyspnea presents for evaluation COMPARISON: Chest radiographs dated 06/10/2022, 06/07/2022 and 07/27/2013 TECHNIQUE: Frontal view of the chest was obtained. FINDINGS: Lines/support devices: Cardiac leads and defibrillator pads project over the chest, somewhat limiting evaluation. Cardiomediastinal silhouette: Obscured. Lungs/pleura: There are low lung volumes. Bibasilar scarring/atelectasis is seen. Indistinctness of the costophrenic angles is noted. No evidence of pneumothorax. Osseous structures: Degenerative changes of the spine and shoulders are seen. No acute osseous abnormality is demonstrated. The bones are osteopenic. Other findings: None. Impression: Low lung volumes with bibasilar scarring/atelectasis and indistinctness of the costophrenic angles, suggestive of small bilateral pleural effusions. Report Dictated on Electronically Signed By: Asad Mccarthy Electronically Signed Date/Time: 06/12/2022 12:56 PM EST XR foot 3+ views right [[id number]] Collected: 06/12/22 1250 Order Status: Completed Updated: 06/12/22 125 Narrative: Patient Name: MOISES MADRID : 1960 Exam Date/Time: 06/12/2022 12:44 Procedure: XR FOOT 3+ VIEWS RIGHT Ordering Provider: EDGAR JONATHAN Reason For Exam: r/o OM RIGHT FOOT: CLINICAL INDICATION: Possible osteomyelitis. TECHNIQUE: AP, Lat, Oblique COMPARISON: 05/09/2011 FINDINGS: There is no evidence for fracture or dislocation. Degenerative changes in the midfoot and first MTP joint. Dense Achilles tendon calcifications again seen. Dorsal soft tissue swelling overlying the mid foot. No evidence of soft tissue gas, osseous erosive change or periostitis. Note that if there is persistent concern for osteomyelitis, MRI is a more sensitive means of evaluation. Report Dictated on Electronically Signed By: Ezra Guthrie Electronically Signed Date/Time: 06/12/2022 12:[address] guided abscess fluid collection drainage [[id number]] Collected: 06/10/22 1607 Order Status: Completed Updated: 06/10/22 1610 Narrative: Patient Name: MOISES MADRID : 1960 Exam Date/Time: 06/10/2022 14:50 Procedure: CT GUIDED ABSCESS FLUID COLLECTION DRAINAGE Ordering Provider: EDGAR JONATHAN Reason For Exam: PROCEDURE: Drainage catheter placement Procedural Personnel Attending physician(s): Jus Barlow Indication: Peripancreatic fluid collection Additional clinical history: None Complications: No immediate complications. Impression: Percutaneous placement of a 10 Prydeinig drainage catheter into peripancreatic fluid collection, yielding 150 mL of bloody fluid. __ PROCEDURE SUMMARY: - Intraperitoneal drainage catheter placement under CT guidance - Additional procedure(s): None PROCEDURE DETAILS: Pre-procedure Consent: Informed consent for the procedure including risks, benefits and alternatives was obtained and time-out was performed prior to the procedure. Preparation: The site was prepared and draped using maximal sterile barrier technique including cutaneous antisepsis. Anesthesia/sedation Moderate sedation was provided under my supervision with patient monitored by a trained radiology nurse. Total sedation time of 25 minutes. Drainage catheter placement The patient was positioned supine. Initial imaging was performed. Local anesthesia was administered. The fluid collection was accessed using an access needle followed by wire insertion and serial dilation and a drainage catheter was placed. Position of the drainage catheter within the fluid collection was confirmed. - Initial imaging findings: Peripancreatic fluid collection - Drainage catheter placed: 10 Prydeinig APD - External catheter securement: Non-absorbable suture and adhesive anchoring device - Post-drainage imaging findings: Drainage catheter in adequate position with pigtail in the most superior aspect of the fluid collection. Contrast Contrast agent: None Contrast volume (mL): [address] dose length product (mGy-cm): 811 Additional Details Additional description of procedure: None Equipment details: None Specimens removed: Aspirated fluid was sent for analysis. Estimated blood loss (mL): Less than 10 Report Dictated on Electronically Signed By: Jus Barlow Electronically Signed Date/Time: 06/10/2022 4:[address] abdomen pelvis wo IV contrast [[id number]] Collected: 06/10/22914 Order Status: Completed Updated: 06/10/22930 Narrative: Patient Name: MOISES MADRID : 1960 [facility]#: [id number] Exam Date/Time: 06/10/2022 08:50 Procedure: CT ABDOMEN PELVIS WO IV CONTRAST Ordering Provider: EDGAR JONATHAN Reason For Exam: Abdominal pain, acute, nonlocalized CT ABDOMEN AND PELVIS WITHOUT IV CONTRAST CLINICAL INDICATION: Acute abdominal pain, nonlocalized TECHNIQUE: Axial CT images through the through the abdomen and pelvis with 3 mm reconstruction without intravenous intravenous contrast media. Enteric contrast was not administered. Coronal and sagittal reconstructions included. 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 COMPARISON: None. FINDINGS: Examination is somewhat limited in evaluation of solid organs and vascular structures due to the lack of intravenous contrast. Additional limitations: Somewhat limited evaluation of the GI tract without enteric contrast. Mild motion and streak artifact limits evaluation to some extent Lung base: Trace to small pleural effusions with mild bibasilar atelectasis/pneumonia. Liver: Hepatic steatosis. Gallbladder/Biliary tree: Gallbladder is somewhat inconspicuous possibly due to the presence of sludge or less likely calculi.. No intra or extrahepatic biliary ductal dilatation Spleen: Within normal limits. Pancreas: Pancreas is heterogeneous with surrounding poorly defined and more confluent fluid particularly at the level of the pancreatic body and tail with extension along the anterior left pararenal space as well as into the lesser sac. Small pocket of loculated fluid along the greater curvature on series 3 image 46 measuring 5.0 x 3.6 cm with distal extension. Fluid demonstrates borderline complexity. Adrenals: No discrete mass or nodule detected. Kidneys/pelvic organs: No obstructive uropathy. Punctate nonobstructing calculus right kidney. Urinary bladder is collapsed limiting evaluation. Borderline prostamegaly. GI tract: A few prominent air distended loops of small bowel without evidence of mechanical obstruction. Normal appendix is identified. Mild to moderate amount retained colonic stool more so proximally. No colonic wall thickening or pericolonic stranding. . Peritoneal cavity/retroperitoneum: No pneumatosis or pneumoperitoneum. No bulky adenopathy. Small amount of lower abdominal/pelvic ascites which appears to be simple in complexity. Vasculature: Normal caliber abdominal aorta. Osseous structures/soft tissues: Degenerative spondylosis in the visualized spine with mild scoliotic curvature. Suspected developmental spinal canal narrowing. Tiny left greater than right fat-containing inguinal hernia without bowel involvement. Trace body wall edema. Gynecomastia Impression: 1. Acute pancreatitis with surrounding poorly defined and more confluent fluid particularly at the level of the pancreatic body and tail with extension along the anterior left pararenal space as well as into the lesser sac. Small pocket of loculated fluid along the greater curvature of the stomach measures 5.0 x 3.6 cm with distal extension. Fluid demonstrates borderline complexity. 2. Nonobstructing punctate right renal calculus. 3. Trace to small pleural effusions with mild bibasilar atelectasis/pneumonia. 4. Questionable trace gallbladder sludge/calculi. Report Dictated on Electronically Signed By: Cheko Chapa Electronically Signed Date/Time: 06/10/2022 9:30 AM EST XR chest 1 view [[id number]] Collected: 06/10/22843 Order Status: Completed Updated: 06/10/22850 Narrative: Patient Name: MOISES MADRID : 1960 [facility]#: [id number] Exam Date/Time: 06/10/2022 08:36 Procedure: XR CHEST 1 VIEW Ordering Provider: EDGAR JONATHAN Reason For Exam: DYSPNEA CHEST RADIOGRAPH CLINICAL INDICATION: Dyspnea TECHNIQUE: AP COMPARISON: 05/30/2022 chest radiograph FINDINGS: Cardiomediastinal: Cardiomediastinal silhouette is normal in size and configuration. Lungs: There are low lung volumes with bronchovascular crowding. Questionable retrocardiac opacity. No pleural effusion or pneumothorax. Osseous structures: No acute osseous abnormality. Impression: Questionable retrocardiac opacity, please correlate with clinical concern for developing pneumonia. Low lung volumes with bronchovascular crowding. Report Dictated on Electronically Signed By: Barry Castillo Electronically Signed Date/Time: 06/10/2022 8:50 AM EST XR chest 1 view [[id number]] Collected: 06/07/222325 Order Status: Completed Updated: 06/07/222327 Narrative: Patient Name: MOISES MADRID : 1960 [facility]#: [id number] Exam Date/Time: 06/07/2022 23:25 Procedure: XR CHEST 1 VIEW Ordering Provider: CASTELAN NICOLE Reason For Exam: chest pain CHEST - PORTABLE: CLINICAL INDICATION: Chest pain. . TECHNIQUE: Portable AP COMPARISON: 07/27/2013 Impression: FINDINGS/IMPRESSION: Limitations: Slightly limited by patient positioning Lines, tubes, and devices: None Cardiomediastinal silhouette: Heart size is within normal limits. Lungs/Pleura: Elevation of the right hemidiaphragm, similar to prior study. Borderline central pulmonary vascular congestion. No consolidation, sizable pleural effusions, or pneumothorax. Osseous structures: Degenerative spondylosis in the visualized spine. 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 Soft tissues: No soft tissue abnormality is detected. Report Dictated on Electronically Signed By: Cheko Chapa Electronically Signed Date/Time: 06/07/2022 11:27 PM EST Assessment SIRS Acute pancreatitis with peripancreatic abscess s/p percutaneous drain (3/3) Acute hypoxic respiratory insufficiency 2/2 coronavirus and pulmonary vascular congestion Coronavirus Acute hyponatremia EDWARDO - resolved Right foot wounds - no active infection Hyperkalemia-resolved HTN HLD Hx of TBI, stroke and residual hemiplegia Chronic headaches Mood disorder Medical Decision Making -Patient presents to [facility] ED from SNF on [facility]08 with complaints of chest pain. Symptoms started day before admission given a PPI at the facility with no relief. In the ED, vital signs were stable. Labs are consistent with a potassium of 6.0, BUN 41, Scr 1.38, troponin negative x1, Lipase 3500, WBC 10.4, COVID/flu/RSV negative, chest x-ray showed borderline central pulmonary vascular congestion. EKG sinus tachycardia with no acute ST or T wave changes.. Given that nitroglycerin and Nitropaste in the ER with resolution of symptoms. Admitted under hospitalist group in the HICU for further evaluation. Underwent stress test which was negative and echocardiogram shows an EF of 70%. Cardiology consulted and recommends medical management with no further intervention. Patient continued to develop abdominal pain and CT abdomen showed inflammation around the pancreas with loculated fluid collection 5 x 3.6 cm around the greater curvature of the stomach concerning for an abscess. General surgery consulted and recommended IR percutaneous drain which was done on 06/10. ID and GI consulted given high complexity and currently on empiric antibiotics. No acute surgical intervention recommended at this time. Patient subsequently developed hypoxia and chest x-ray shows questionable right retro- cardiac opacity which could be due to pneumonia. Discussed with Dr. Dickerson and advise changing Zosyn to Ertapenem therapy on 06/14. However, patient vital signs change becoming more tachycardic, tachypneic and febrile. Diagnosed with sepsis and ID changed him to Vanco and meropenem. Chest x-ray yesterday obtained consistent with pulmonary vascular congestion and volume overload. Started on IV Lasix with nephrology consulted in the setting of hyponatremia. Evaluated by ICU yesterday and deem appropriate for floor after given Narcan. Patient received 8 days of abx and ID discontinued current regimen. Plan is supportive care measures. -am labs, replace lytes prn -increase activity -DVT prophylaxis: [x] Lovenox [] Heparin [] SCDs [x] Encourage ambulation [] Already on Anticoagulation Anticipated Discharge - Date - TBD - Location - Skilled Facility - Pending the following - Stability, specialist clearance Total time spent (which include face to face and non face to face encounters) : 55 minutes Toxic drug monitoring/narrow therapeutic index drug monitoring : # Drug name : Lovenox # Route administered : SubQ # Method of monitoring : CBC Extended Emergency Contact Information Primary Emergency Contact: Joslyn Hollins Relation: Other Asia Nelson MD Division of Hospitalist Medicine Inpatient Medical Services/[facility] [place] [facility]: [employer] Pharmacy Note Vancomycin 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 year old male ordered vancomycin for sepsis; consult from Dr. Becky Dickerson to manage therapy. 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 (HCC) 06/08/2022 Obesity, Class I, BMI 30-34.9 01/27/2020 Hyperlipidemia 03/14/2015 Depression 03/14/2015 Hemiplegia (CMS/HCC) (HCC) 03/14/2015 Essential hypertension, benign 03/09/2006 Hydralazine, Sulfamethoxazole-trimethoprim, Temazepam, Tramadol, and Clindamycin CREATININE Date Value Ref Range Status 06/17/2022 0.82 0.66 - 1.25 mg/dL Final 02/19/2020 0.97 0.52 - 1.25 mg/dL Final UREA NITROGEN Date Value Ref Range Status 06/17/2022 19 9 - 20 mg/dL Final Auto WBC Date Value Ref Range Status 06/17/2022 19.8 (H) 3.6 - 10.7 10*3/uL Final Ht Readings from Last 1 Encounters: 06/08/22 1.88 m (6' 2) Wt Readings from Last 1 Encounters: 06/17/22 114 kg (250 lb 14.1 oz) Plan: Will initiate vancomycin 1,250 mg IV every 12 hours. Goal AUC is 400-600 mg/L.hr. Random level of 14.3 on 06/16/22 at 1510. AUC = 414. Will continue current dose. Thank you for the consult. Will continue to follow. 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 Allergies Allergen Reactions Hydralazine Unknown Sulfamethoxazole-Trimethoprim Unknown Temazepam Unknown Tramadol Unknown Clindamycin Rash Burn, rash Burn, rash Oxygen Level: O2 Device: Nasal cannula Liters of Oxygen: 4 L Current Diet Level: Dietary Orders (From admission, onward) Start Ordered 06/13/22 1358 Supplement:Lunch, Dinner; Chocolate Magic Cup Until discontinued Question Answer Comment Frequency Lunch Frequency Dinner Select supplement: Chocolate Magic Cup 06/13/22 1357 06/13/22 1358 Supplement:Breakfast; Pro-Stat Modular Until discontinued Question Answer Comment Frequency Breakfast Select supplement: Pro-Stat Modular Comment mixed in mod thick cranberry juice 06/13/22 1400 06/13/22 1218 Adult diet Dysphagia - Pureed; Moderately Thick (Honey); Low Fat (less than or equal to 50 gm/day) Diet effective now Question Answer Comment Diet type Dysphagia - Pureed Fluid consistency Moderately Thick (Honey) GI restriction: Low Fat (less than or equal to 50 gm/day) 06/13/22 1218 General Chart Reviewed: Yes PPE Worn: surgical mask, gloves, face shield, gown Respiratory Status: O2 via nasual cannula O2 Device: Nasal cannula Liters of Oxygen: 4 L Pain: RN managing patient pain S: Patient was upright in bed upon entering the room. Patient was alert and cooperative for ST. RN noted concern with patient swallow function. O: Assessed diet tolerance. A: Patient was given puree and moderately thick liquid via cup sip. Upon presentation of moderately thick liquid, patient presented with delayed throat clear following 50%. Noted patient's oxygen saturation fluctuated from 96 to 89 during PO trials. Concerned for airway penetration/aspiration. Recommended Diet and Intervention Diet Solids Recommendation: NPO Liquid Consistency Recommendation: NPO Recommended Form of Meds: Crushed in puree as able Recommendations: Dysphagia treatment, NPO, Modified barium swallow study Therapeutic Interventions: Therapeutic PO trials with CAM SPECIALIST, Patient/Family education Treatment/Goals Encounter Problems Encounter Problems (Active) Swallowing Patient will tolerate recommended food and liquid consistencies without clinical signs and symptoms of aspirations (Not Progressing) Start: 06/11/22 Expected End: 06/25/22 Patient will participate in instrumental assessment of swallowing as appropriate (Not Addressed) Start: 06/11/22 Expected End: 06/25/22 Education Education Given: diet recommendations, potential for additional diagnositc testing, role of therapy Education Given To: Patient, RN RN name: Lucero Palmer Response: Needs reinforcement P: Recommend NPO at this time (with the exception of PO meds). Please order a modified barium swallow study for further assessment. Treatment Plan Requires CAM SPECIALIST Intervention: Yes Frequency/Duration: Frequency of Treatment: 3 days/wk for Duration of Treatment: 2 weeks Therapy Time CAM SPECIALIST Individual Minutes Time In: 1515 Time Out: 1530 Minutes: 15 Brandi Caldwell, CAM SPECIALIST student 06/16/2022 3:41 PM Cardiology Progress Note Patient Name: Moises Madrid Patient Age: 61 y.o. Date: 06/16/2022 SUBJECTIVE: pt. In isolation Sob.c/o abd. Pain. No cp. PANCREATITIS. CHOLECYSTITIS. RENAL STONE, Stress . >> nl.. ef=65 % Leucocytosis.>>20. Blood ghogk=085 mg. Gi consult reviewed. Very lethargic & sleepy. No cp. VITALS BP (!) 138/91 (BP Location: Right arm, Patient Position: Lying) Pulse (!) 112 Temp 37.8 C (100.1 F) (Axillary) Resp 23 Ht 6' 2 (1.88 m) Wt 253 lb (115 kg) SpO2 95% BMI 32.48 kg/m I&O Intake/Output Summary (Last 24 hours) at 06/16/2022 1016 Last data filed at 06/16/2022 1000 Gross per 24 hour Intake 613 ml Output 4825 ml Net -4212 ml OBJECTIVE: 10 systems reviewed as seen below Neck: Neck JVP 0, No carotid bruits, thyroid not enlarged Cardiovascular system: NSR, Short systolic murmur, no gallop Chest: normal breath sounds Abdomen: Abdomen soft/non-tender, no organomegaly, bowel sounds present Extremities: No edema, no varicosity Endocrine : Hypothyroidism No Diabites yes GI system : GIB No Renal : CKD No TUBE BENDER HAND : CVA/TIA No Musculoskeletal system : DJD No LAB Lab Results Component Value Date NA 132 (L) 06/16/2022 K 4.0 06/16/2022 CL 95 (L) 06/16/2022 CO2 32 (H) 06/16/2022 BUN 16 06/16/2022 CREATININE 0.80 06/16/2022 GLUCOSE 173 (H) 06/16/2022 CALCIUM 8.1 (L) 06/16/2022 Lab Results Component Value Date WBC 19.9 (H) 06/16/2022 HGB 12.6 (L) 06/16/2022 HCT 37.8 (L) 06/16/2022 MCV 92.0 06/16/2022 PLT 229 06/16/2022 Lab Results Component Value Date TROPONINI <0.012 06/08/2022 Lab Results Component Value Date TSH 3.216 06/07/2022 No components found for: LABA1C No components found for: EAG Recent Labs 06/16/22 0318 ALKPHOS 114 ALT 25 AST 36 BILITOT 0.7 LIPASE 718* Lab Results Component Value Date BNP 49 06/07/2022 CARDIAC TESTING EKG: Encounter Date: 06/07/22 ECG 12 lead Result Value Heart Rate 111 QRSD Interval 94 QT Interval 352 QTC Interval 479 P [place] 43 QRS [place] -36 T Wave [place] 60 OH Interval 160 Impression SINUS TACHYCARDIA LEFT AXIS DEVIATION LATE PRECORDIAL R/S TRANSITION LEFT VENTRICULAR HYPERTROPHY Electronically Signed On 06-10-2022 9:55:05 EST by Dimple Wade Echo: Transthoracic echocardiogram (TTE) complete with contrast, bubble, strain, and 3D PRN Result Date: 06/08/2022 Left Ventricle: Left ventricle size is normal. Normal wall thickness. Normal left ventricular systolic function. EF by 2D Simpsons Biplane is 70%. Normal wall motion. Right Ventricle: Right ventricle is mildly dilated. Normal systolic function. No significant valvular abnormalities. Troponin: Stress Test: Cardiac Cath: IMPRESSION : chest infilterate.>>possible pne./ hypoxia. Abd. Pain. 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 CHOLECYSTITIS, RENAL STONE, HYPONATREMIA, NA-=129. > RESTRICT FLUIDS. PLAN : Chest pain>>>Stress test normal., ef=65 %NO CP TODAY, Noncardiac cp. CARDIAC STATUS IS STABLE. Essential hypertension, benign>>>Meds Hyperlipidemia>>Meds>>Meds Troponin=0.012. ekg no change, Dr. Dickerson and advise changing Zosyn to Ertapenem therapy on 06/14. However, patient vital signs change becoming more tachycardic, tachypneic and febrile SHELTON HERMAN M.D., [facility] 06/16/2022 [facility] Physicians Surgery Patient Name: Moises Madrid Date: 06/16/2022 Patient seen and examined by myself and I agree with SKY note below Resting in bed and appears comfortable Abdominal complaints about the same Abdomen soft tender epigastric no peritoneal signs minimal output in drainage bag Labs and imaging reviewed Assessment /Plan: Acute pancreatitis with peripancreatic fluid collection status post drainage and no growth seen in fluid No acute surgical issues and none anticipated this hospitalization Continue current management per medical team and infectious disease Surgery will continue to follow for now Patient counseled on risks,benefits, and alternatives of treatement plan at length. Patient states an understanding and willingness to proceed with plan. I personally supervised my SKY and/or resident in the evaluation and management of Moises Madrid in the development of a treatment plan for this patient. I personally interviewed the patient and performed an individual physical examination. In addition, I discussed the patient's condition and treatment options with them. I have also reviewed and agree with the past medical, family and social history and care plan unless otherwise noted. All of the patient's questions were answered. This case represents moderate level care including chart review, care coordination and face to face encounter was spent discussing/counseling the patient regarding the care plan for this patient. The patient was seen and examined independently and relevant data reviewed by myself. A full chart review was performed. Remigio Napier MD [facility] General Surgery 7:43 PM 06/16/2022 GENERAL SURGERY Progress Note PATIENT NAME: Moises Madrid TODAY'S DATE: 06/16/2022 SUBJECTIVE: General Surgery follow up on pancreatitis and peripancreatic fluid. More drowsy this morning but does awaken and answer question. He reports abdominal pain. NO other acute events overnight. Pain controlled Yes Other Complaints No Flatus/BM/or Ostomy function {Yes OBJECTIVE: VITALS: BP (!) 138/91 (BP Location: Right arm, Patient Position: Lying) Pulse (!) 112 Temp 37.8 C (100.1 F) (Axillary) Resp 23 Ht 6' 2 (1.88 m) Wt 253 lb (115 kg) SpO2 95% BMI 32.48 kg/m INTAKE/OUTPUT: I/O last 3 completed shifts: In: 613 (5.3 mL/kg) [IV Piggyback:613] Out: 5220 (45.5 mL/kg) [Urine:5200 (1.3 mL/kg/hr); Drains:20] Weight: 114.8 kg No intake/output data recorded. REVIEW OF SYSTEMS: Pertinent positives and negatives as per interval history section PHYSICAL EXAM: CONSTITUTIONAL: A&O x 3, LUNGS: Resp effort easy and unlabored, breath sounds normal CARDIOVASCULAR: RRR ABDOMEN: soft non tender, non distended, perc MUSCULOSKELETAL: Normal range of motion NEUROLOGIC: Level of Alertness: alert, more drowsy this morning but does awaken and answer questions PSYCHIATRIC: Speech is normal SKIN: Warm, dry, and intact Data: CBC: Recent Labs 06/14/2222506/15/2240006/16/22 031 WBC 18.7* 19.0* 19.9* HGB 12.2* 12.2* 12.6* HCT 36.3* 37.1* 37.8* PLT 166 186 229 BMP: Recent Labs 06/14/2222506/15/22 0401 06/16/22 031 NA 127* 128* 132* K 4.2 4.2 4.0 CL 98 95* 95* CO2 32* 33* 32* BUN 8* 10 16 CREATININE 0.71 0.81 0.80 GLUCOSE 171* 175* 173* Hepatic: Recent Labs 06/14/2222506/15/221 06/16/22 031 AST 41 29 36 ALT 36 26 25 BILITOT 0.7 0.6 0.7 ALKPHOS 106 111 114 ASSESSMENT AND PLAN: 61 y/o M with an infected acute peripancreatic fluid collection s/p CT guided drain placement 06/10/22 - WBC increased to 19.9- Monitor leukocytosis - US abdomen with cholelithiasis without evidence of acute cholecystitis - Drain culture: Gram + cocci initially then addended by lab with no organisms seen- Continue drain mgmt- may be able to remove prior to discharge - CT repeat on 06/13 showing near complete resolution of focal fluid at greater curvature of stomach, anasarca small amount free fluid. Mild increase in atelectasis/infiltrates bilateral lower lobes - IV antibiotics - ID following- antibiotic management per them - Continue diet as tolerated - Medical mgmt per primary team - Psych following for major depression and suicidal ideation- psych meds restarted - Cardiology following Disposition: Patient more drowsy appearing today, minimal pain on abdominal exam. Perc drain brown old blood appearing drainage. No acute surgical indication. Will continue to follow. Patient counseled on risks, benefits, and alternatives of treatment plan today. Patient states an understanding and willingness to proceed with plan. Raimundo Riley APRN - ADVANCED REGISTERED NURSE .. [facility] Progress Note Subjective/ 61 y.o. year old male who we are seeing in consultation for Hyponatremia. NAEON Recently given Narcan 2/2 unresponsiveness Awakens to voice and able to follow commands States he feels tired BP is stable No issues with UOP No other new issues at this time ROS done and negative unless mentioned as above No change in PFSH All data labs/interval notes and overnight issues are reviewed Objective/ Vitals: 06/15/22 2320 06/16/22 0110 06/16/22 0323 06/16/22 0745 BP: (!) 148/94 (!) 124/96 (!) 155/101 BP Location: Right arm Right arm Right arm Patient Position: Lying Lying Lying Pulse: (!) 115 (!) 113 (!) 116 (!) 111 Resp: 19 19 Temp: 37.9 C (100.2 F) 37.9 C (100.3 F) 36.3 C (97.4 F) TempSrc: Oral Oral SpO2: 98% 96% 95% 95% Weight: Height: Intake/Output Summary (Last 24 hours) at 06/16/2022 0903 Last data filed at 06/16/2022 0635 Gross per 24 hour Intake 613 ml Output 4000 ml Net -3387 ml ARIPiprazole, 5 mg, Oral, Daily aspirin, 81 mg, Oral, Daily divalproex sprinkle, 250 mg, Oral, 2 times per day enoxaparin, 40 mg, SubCUTAneous, Daily furosemide, 40 mg, IntraVENous, BID guaiFENesin, 600 mg, Oral, BID influenza vaccine split quadravalent, 0.5 mL, IntraMUSCular, Once melatonin, 10 mg, Oral, Nightly memantine, 10 mg, Oral, BID meropenem, 2,000 mg, IntraVENous, q8h miconazole, , Topical, BID senna-docusate sodium, 2 tablet, Oral, Daily vancomycin, 1,250 mg, IntraVENous, q12h venlafaxine, 75 mg, Oral, BID DOBUTamine, 10 mcg/kg/min, Last Rate: Stopped (06/09/22 1402) PRN medications: acetaminophen OR acetaminophen, bisacodyl, dextrose, dextrose, glucagon (rDNA), glucose, HYDROmorphone, ipratropium-albuterol, lidocaine, melatonin, nitroglycerin, ondansetron ODT OR ondansetron, oxyCODONE-acetaminophen, polyethylene glycol (PEG) 3350, stomahesive in petrolatum Constitutional: Alert, awake, no apparent distress Eyes: No icterus, no pallor HEENT: no pallor/cyanosis or icterus Cardiovascular: S1, S2 without m/r/g Respiratory: CTA B without w/r/r GI: +bs, soft, nt Ext: No LE edema Neck: supple, no thyroid enlargement, no JVD elevation Skin: warm, moist, no rashes Results from last 7 days Lab Units 06/16/22 0318 06/15/22 0401 06/14/22 0226 SODIUM mmol/L 132* 128* 127* POTASSIUM mmol/L 4.0 4.2 4.2 CHLORIDE mmol/L 95* 95* 98 CO2 mmol/L 32* 33* 32* BUN mg/dL 16 10 8* CREATININE mg/dL 0.80 0.81 0.71 GLUCOSE mg/dL 173* 175* 171* CALCIUM mg/dL 8.1* 8.0* 7.9* Results from last 7 days Lab Units 06/16/22 0318 06/15/22 0401 06/14/22 0226 WBC AUTO 10*3/uL 19.9* 19.0* 18.7* HEMOGLOBIN g/dL 12.6* 12.2* 12.2* HEMATOCRIT % 37.8* 37.1* 36.3* PLATELETS AUTO 10*3/uL 229 186 166 Assessment/Plan Acute hyponatremia 2/2 unclear ADH stimulus SIADH 3. Acute hypoxic respiratory insufficiency 4. Acute pancreatitis 5. Right foot wounds 6. HTN, essential Plan: -Na 132 is improving appropriately. Sodium level >127 acceptable -Hyponatremia likely 2/2 excess ADH (valproic acid, venlafaxine, narcotics ) versus poor p.o. solute intake -Scr is stable at baseline and c/w IV diuretics -UA and urine studies not c/w volume depletion -If does not improve, may benefit from x1 tolvaptan to gauge response vs salt tabs -Fluid restriction: 1.2L -Volume status: euvolemic -Encourage 3 meals a day high in protein and ensure supplements ordered -Strict I&O -All other management defer to primary/ICU teams -s/w Dr. Nelson -We will follow closely with you Zeynep Wyatt APRN, ADVANCED REGISTERED NURSE [facility], [facility] [phone] Patient seen and examined. Agree with above A and p. Hyponatremia starting to improve. Encourage magic cup/protein drinks. C/w FR. Will follow. Images from the original note were not included. Hospitalist Progress Note 06/16/2022 [phone]: Please page me ([phone]) for patient care issues. [phone]: Please page [facility] [place] night Hospitalist for any issues. Subjective: Admit Date: 06/07/2022 PCP: Demetrius Fenton Room#: 232-06/232-06 A Interval History: Overnight, patient febrile. On evaluation this am, patient more lethargic and AO x 0. Not following commands. Vitals are more tachycardic and tachyphenic. Worse compared to yesterday. Adult diet Dysphagia - Pureed; Moderately Thick (Honey); Low Fat (less than or equal to 50 gm/day) @[id number]@ 24HR INTAKE/OUTPUT: Intake/Output Summary (Last 24 hours) at 06/16/2022 0747 Last data filed at 06/16/2022 0635 Gross per 24 hour Intake 613 ml Output 4000 ml Net -3387 ml Past Medical History: Past Medical History: Diagnosis Date Anxiety Ataxia Bipolar disorder (HCC) Chronic pain Constipation Contracture, right hand Depression Dysphagia Dysphagia Dysphonia Edema GERD (gastroesophageal reflux disease) Headache Hemiplegia (CMS/HCC) (HCC) Hyperlipidemia Hypertension Insomnia Muscle weakness Neuropathy TBI (traumatic brain injury) LABS: CBC: Recent Labs 06/14/2222506/15/2240006/16/22317 WBC 18.7* 19.0* 19.9* RBC 3.98* 4.03* 4.11* HGB 12.2* 12.2* 12.6* HCT 36.3* 37.1* 37.8* MCV 91.1 92.1 92.0 RDW 13.6 13.8 13.6 PLT 166 186 229 BMP: Recent Labs 06/14/2222506/15/2240006/16/22317 NA 127* 128* 132* K 4.2 4.2 4.0 CL 98 95* 95* CO2 32* 33* 32* BUN 8* 10 16 CREATININE 0.71 0.81 0.80 GLUCOSE 171* 175* 173* CALCIUM 7.9* 8.0* 8.1* ANIONGAP -3* 0* 5 LIVER PROFILE: Recent Labs 06/14/2222506/15/2240006/16/22317 AST 41 29 36 ALT 36 26 25 BILITOT 0.7 0.6 0.7 ALKPHOS 106 111 114 PROT 5.9* 6.0* 6.2* PT/INR: No results for input(s): PROTIME, INR in the last 72 hours. CARDIAC ENZYMES: No results for input(s): TROPONINI in the last 72 hours. Procalcitonin: Lab Results Component Value Date PROCAL 0.47 (H) 06/14/2022 COVID-19 PCR: No results for input(s): COVID19 in the last 72 hours. Objective: Vitals: BP (!) 124/96 (BP Location: Right arm, Patient Position: Lying) Pulse (!) 116 Temp 36.3 C (97.4 F) Resp 25 Ht 6' 2 (1.88 m) Wt 253 lb (115 kg) SpO2 95% BMI 32.48 kg/m Pulse Ox: SpO2 Av % Min: 95 % Max: 99 % Supplemental O2: O2 Flow Rate (L/min): 4 L/min General appearance: Appears critically ill Respiratory: Scattered rhonic throughout, increased RR Cardiovascular: Tachycardic, Regular rhythm with normal S1/S2 without murmurs, rubs or gallops. Abdomen: Soft, non-tender, non-distended with normal bowel sounds. No rebound or guarding. Percutaneous drain in place Musculoskeletal: No clubbing, cyanosis or edema bilaterally. Full range of motion without deformity, +2 peripheral pulses in all extremities. Skin: Bilateral LE skin changes, appear chronic in nature Neurologic: Not following commands. AO x 0. Medications: DOBUTamine, 10 mcg/kg/min, Last Rate: Stopped (06/09/22 1402) ARIPiprazole, 5 mg, Oral, Daily aspirin, 81 mg, Oral, Daily divalproex sprinkle, 250 mg, Oral, 2 times per day enoxaparin, 40 mg, SubCUTAneous, Daily furosemide, 40 mg, IntraVENous, BID guaiFENesin, 600 mg, Oral, BID influenza vaccine split quadravalent, 0.5 mL, IntraMUSCular, Once melatonin, 10 mg, Oral, Nightly memantine, 10 mg, Oral, BID meropenem, 2,000 mg, IntraVENous, q8h miconazole, , Topical, BID senna-docusate sodium, 2 tablet, Oral, Daily vancomycin, 1,250 mg, IntraVENous, q12h venlafaxine, 75 mg, Oral, BID Radiology Results (last 21 days) XR chest 1 view [[id number]] Collected: 06/16/22427 Order Status: Completed Updated: 06/16/22516 Narrative: Patient Name: MOISES MADRID : 1960 Exam Date/Time: 06/16/2022 05:16 Procedure: XR CHEST 1 VIEW Ordering Provider: NELSON HASSAN Reason For Exam: DYSPNEA CLINICAL INFORMATION: Dyspnea [place] 0424 hours is provided and compared with a previous study dated 06/15/2022 FINDINGS: The heart size is normal. There are bibasilar infiltrates and effusions. There is prominence of the interstitium and central pulmonary vasculature. Impression: Prominence of the central pulmonary vasculature consistent with moderate congestive heart failure/fluid overload, slightly improved from the prior exam. Report Dictated on Electronically Signed By: Loki Roberts Electronically Signed Date/Time: 06/16/2022 4:29 AM EST XR chest 1 view [[id number]] Collected: 06/15/221131 Order Status: Completed Updated: 06/15/221133 Narrative: Patient Name: MOISES MADRID : 1960 Exam Date/Time: 06/15/2022 10:31 Procedure: XR CHEST 1 VIEW Ordering Provider: NELSON HASSAN Reason For Exam: Shortness of breath CLINICAL INFORMATION: Shortness of breath. Portable view of the chest at 1010 hours is provided and compared with a previous study dated 06/12/2022. FINDINGS: The heart size is normal. There are bibasilar infiltrates and effusions. There is prominence of the interstitium and central pulmonary vasculature. Impression: 1. Worsening infiltrates. 2. Prominence of the central pulmonary vasculature consistent with moderate congestive heart failure/fluid overload. This has also progressed. Report Dictated on Electronically Signed By: Chaz Poon Electronically Signed Date/Time: 06/15/2022 11:33 AM EST Procedure Component Value Units Date/Time CT abdomen pelvis w contrast [[id number]] Collected: 06/13/222204 Order Status: Completed Updated: 06/13/222220 Narrative: Patient Name: MOISES MADRID : 1960 Exam Date/Time: 06/13/2022 17:39 Procedure: CT ABDOMEN PELVIS W CONTRAST Ordering Provider: EDGAR JONATHAN Reason For Exam: Abdominal pain, acute, nonlocalized CT ABDOMEN AND PELVIS WITH CONTRAST CLINICAL INDICATION: Abdominal pain, acute, nonlocalized TECHNIQUE: CT scan of the abdomen and pelvis, with IV contrast. Multiplanar reformations. 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 COMPARISON: June,. FINDINGS: Abdomen: Visualized lung bases again show partially confluent opacities in the right middle and bilateral lower lobes, with some air bronchograms mildly increased. Very small bilateral pleural effusions, about the same. Interval placement of percutaneous pigtail catheter extending into focal fluid noted previously along the greater curvature the stomach, which is considerably decreased and nearly resolved. Pancreas again prominent and shows diffuse peripancreatic fat stranding or infiltration, mildly increased. Fluid attenuation again seen adjacent to pancreatic tail, extending caudally along the anterior pararenal space and paracolic gutter not appreciably changed. No radiopaque gallstones. Liver shows diffusely decreased attenuation without focal abnormality. Spleen without significant abnormality. Punctate calcification and tiny cyst again noted in the right kidney without significant hydronephrosis. Left kidney grossly unremarkable. Adrenal glands without significant abnormality. Pelvis: Bowel grossly unremarkable. Appendix within normal limits. Very small amount of nonspecific, free fluid noted along right paracolic gutter and in the pelvis. No discrete abscess. Abdominal aorta is nonaneurysmal. Buckley catheter noted in decompressed urinary bladder. Axial skeleton grossly intact, with degenerative change again noted in the lumbar spine. Diffuse subcutaneous edema in the trunk and pelvis, new in the interval. Impression: 1. Interval placement of percutaneous pigtail catheter and near complete resolution of focal fluid noted previously along the greater curvature of the stomach. 2. Findings compatible with pancreatitis, mildly increased in the interval. 3. Hepatic steatosis, and nonobstructing right renal calcification. 4. Very small amount of nonspecific free fluid in the abdomen and pelvis, similar to comparison. Anasarca, new in the interval. 5. Mild atelectasis or infiltrates in right middle and bilateral lower lobes, mildly increased in the interval. Report Dictated on Electronically Signed By: Merrick Lopez Electronically Signed Date/Time: 06/13/2022 10:20 PM EST abdomen limited [[id number]] Collected: 06/13/22823 Order Status: Completed Updated: 06/13/22 0830 Narrative: Patient Name: MOISES MADRID : 1960 Exam Date/Time: 06/13/2022 07:20 Procedure: US ABDOMEN LIMITED Ordering Provider: CORTEZ JONATHAN Reason For Exam: PANCREATITIS - ACUTE ULTRASOUND ABDOMEN RUQ CLINICAL HISTORY:PANCREATITIS - ACUTE COMPARISON: CT 06/10/2022 TECHNIQUE: Grayscale sonographic images were obtained of the right upper quadrant. Color Doppler was utilized. FINDINGS: Portions the exam are limited by overlying bowel gas, patient immobility and body habitus, as well as due to indwelling epigastric drainage catheter. Liver: Left lobe is not well visualized. Right hepatic parenchymal echotexture is slightly heterogeneous and increased. No discrete lesions on submitted images. Biliary system: No sonographic evidence of intrahepatic biliary ductal dilatation. The common bile duct is normal in caliber and measures 2 mm. Gallbladder: Gallbladder appears well-distended. Several small stones are present. No pericholecystic fluid or gallbladder wall thickening. There was a negative sonographic Cole's sign reported by the registered vascular technologist (rvt). Pancreas: Obscured by bowel gas. Right Kidney: Largely obscured by bowel gas. Additional findings: Trace perihepatic ascites. Impression: 1. Technically limited evaluation. In particular the left hepatic lobe, pancreas, and right kidney are not well visualized or evaluated. 2. Cholelithiasis without sonographic evidence of acute cholecystitis. 3. No biliary ductal dilatation Report Dictated on Electronically Signed By: Cheko Chapa Electronically Signed Date/Time: 06/13/2022 8:29 AM EST XR chest 1 view [[id number]] Collected: 06/12/22 1254 Order Status: Completed Updated: 06/12/22 1257 Narrative: Patient Name: MOISES MADRID : 1960 Exam Date/Time: 06/12/2022 12:43 Procedure: XR CHEST 1 VIEW Ordering Provider: EDGAR JONATHAN Reason For Exam: DYSPNEA EXAMINATION: XR chest AP. EXAM DATE & TIME: 06/12/2022 12:43 PM EST INDICATION: DYSPNEA ADDITIONAL INFORMATION: 61-year-old male with dyspnea presents for evaluation COMPARISON: Chest radiographs dated 06/10/2022, 06/07/2022 and 07/27/2013 TECHNIQUE: Frontal view of the chest was obtained. FINDINGS: Lines/support devices: Cardiac leads and defibrillator pads project over the chest, somewhat limiting evaluation. Cardiomediastinal silhouette: Obscured. Lungs/pleura: There are low lung volumes. Bibasilar scarring/atelectasis is seen. Indistinctness of the costophrenic angles is noted. No evidence of pneumothorax. Osseous structures: Degenerative changes of the spine and shoulders are seen. No acute osseous abnormality is demonstrated. The bones are osteopenic. Other findings: None. Impression: Low lung volumes with bibasilar scarring/atelectasis and indistinctness of the costophrenic angles, suggestive of small bilateral pleural effusions. Report Dictated on Electronically Signed By: Asad Mccarthy Electronically Signed Date/Time: 06/12/2022 12:56 PM EST XR foot 3+ views right [[id number]] Collected: 06/12/22 1250 Order Status: Completed Updated: 06/12/22 125 Narrative: Patient Name: MOISES MADRID : 1960 [facility]#: [id number] Exam Date/Time: 06/12/2022 12:44 Procedure: XR FOOT 3+ VIEWS RIGHT Ordering Provider: EDGAR JONATHAN Reason For Exam: r/o OM RIGHT FOOT: CLINICAL INDICATION: Possible osteomyelitis. TECHNIQUE: AP, Lat, Oblique COMPARISON: 05/09/2011 FINDINGS: There is no evidence for fracture or dislocation. Degenerative changes in the midfoot and first MTP joint. Dense Achilles tendon calcifications again seen. Dorsal soft tissue swelling overlying the mid foot. No evidence of soft tissue gas, osseous erosive change or periostitis. Note that if there is persistent concern for osteomyelitis, MRI is a more sensitive means of evaluation. Report Dictated on Electronically Signed By: Ezra Guthrie Electronically Signed Date/Time: 06/12/2022 12:[address] guided abscess fluid collection drainage [[id number]] Collected: 06/10/22 1607 Order Status: Completed Updated: 06/10/22 1610 Narrative: Patient Name: MOISES MADRID : 1960 [facility]#: [id number] Exam Date/Time: 06/10/2022 14:50 Procedure: CT GUIDED ABSCESS FLUID COLLECTION DRAINAGE Ordering Provider: EDGAR JONATHAN Reason For Exam: PROCEDURE: Drainage catheter placement Procedural Personnel Attending physician(s): Jus Barlow Indication: Peripancreatic fluid collection Additional clinical history: None Complications: No immediate complications. Impression: Percutaneous placement of a 10 Prydeinig drainage catheter into peripancreatic fluid collection, yielding 150 mL of bloody fluid. __ PROCEDURE SUMMARY: - Intraperitoneal drainage catheter placement under CT guidance - Additional procedure(s): None PROCEDURE DETAILS: Pre-procedure Consent: Informed consent for the procedure including risks, benefits and alternatives was obtained and time-out was performed prior to the procedure. Preparation: The site was prepared and draped using maximal sterile barrier technique including cutaneous antisepsis. Anesthesia/sedation Moderate sedation was provided under my supervision with patient monitored by a trained radiology nurse. Total sedation time of 25 minutes. Drainage catheter placement The patient was positioned supine. Initial imaging was performed. Local anesthesia was administered. The fluid collection was accessed using an access needle followed by wire insertion and serial dilation and a drainage catheter was placed. Position of the drainage catheter within the fluid collection was confirmed. - Initial imaging findings: Peripancreatic fluid collection - Drainage catheter placed: 10 Prydeinig APD - External catheter securement: Non-absorbable suture and adhesive anchoring device - Post-drainage imaging findings: Drainage catheter in adequate position with pigtail in the most superior aspect of the fluid collection. Contrast Contrast agent: None Contrast volume (mL): [address] dose length product (mGy-cm): 811 Additional Details Additional description of procedure: None Equipment details: None Specimens removed: Aspirated fluid was sent for analysis. Estimated blood loss (mL): Less than 10 Report Dictated on Electronically Signed By: Jus Barlow Electronically Signed Date/Time: 06/10/2022 4:[address] abdomen pelvis wo IV contrast [[id number]] Collected: 06/10/22914 Order Status: Completed Updated: 06/10/22930 Narrative: Patient Name: MOISES MADRID : 1960 [facility]#: [id number] Exam Date/Time: 06/10/2022 08:50 Procedure: CT ABDOMEN PELVIS WO IV CONTRAST Ordering Provider: EDGAR JONATHAN Reason For Exam: Abdominal pain, acute, nonlocalized CT ABDOMEN AND PELVIS WITHOUT IV CONTRAST CLINICAL INDICATION: Acute abdominal pain, nonlocalized TECHNIQUE: Axial CT images through the through the abdomen and pelvis with 3 mm reconstruction without intravenous intravenous contrast media. Enteric contrast was not administered. Coronal and sagittal reconstructions included. 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 COMPARISON: None. FINDINGS: Examination is somewhat limited in evaluation of solid organs and vascular structures due to the lack of intravenous contrast. Additional limitations: Somewhat limited evaluation of the GI tract without enteric contrast. Mild motion and streak artifact limits evaluation to some extent Lung base: Trace to small pleural effusions with mild bibasilar atelectasis/pneumonia. Liver: Hepatic steatosis. Gallbladder/Biliary tree: Gallbladder is somewhat inconspicuous possibly due to the presence of sludge or less likely calculi.. No intra or extrahepatic biliary ductal dilatation Spleen: Within normal limits. Pancreas: Pancreas is heterogeneous with surrounding poorly defined and more confluent fluid particularly at the level of the pancreatic body and tail with extension along the anterior left pararenal space as well as into the lesser sac. Small pocket of loculated fluid along the greater curvature on series 3 image 46 measuring 5.0 x 3.6 cm with distal extension. Fluid demonstrates borderline complexity. Adrenals: No discrete mass or nodule detected. Kidneys/pelvic organs: No obstructive uropathy. Punctate nonobstructing calculus right kidney. Urinary bladder is collapsed limiting evaluation. Borderline prostamegaly. GI tract: A few prominent air distended loops of small bowel without evidence of mechanical obstruction. Normal appendix is identified. Mild to moderate amount retained colonic stool more so proximally. No colonic wall thickening or pericolonic stranding. . Peritoneal cavity/retroperitoneum: No pneumatosis or pneumoperitoneum. No bulky adenopathy. Small amount of lower abdominal/pelvic ascites which appears to be simple in complexity. Vasculature: Normal caliber abdominal aorta. Osseous structures/soft tissues: Degenerative spondylosis in the visualized spine with mild scoliotic curvature. Suspected developmental spinal canal narrowing. Tiny left greater than right fat-containing inguinal hernia without bowel involvement. Trace body wall edema. Gynecomastia Impression: 1. Acute pancreatitis with surrounding poorly defined and more confluent fluid particularly at the level of the pancreatic body and tail with extension along the anterior left pararenal space as well as into the lesser sac. Small pocket of loculated fluid along the greater curvature of the stomach measures 5.0 x 3.6 cm with distal extension. Fluid demonstrates borderline complexity. 2. Nonobstructing punctate right renal calculus. 3. Trace to small pleural effusions with mild bibasilar atelectasis/pneumonia. 4. Questionable trace gallbladder sludge/calculi. Report Dictated on Electronically Signed By: Cheko Chapa Electronically Signed Date/Time: 06/10/2022 9:30 AM EST XR chest 1 view [[id number]] Collected: 06/10/22843 Order Status: Completed Updated: 06/10/22850 Narrative: Patient Name: MOISES MADRID : 1960 [facility]#: [id number] Exam Date/Time: 06/10/2022 08:36 Procedure: XR CHEST 1 VIEW Ordering Provider: EDGAR JONATHAN Reason For Exam: DYSPNEA CHEST RADIOGRAPH CLINICAL INDICATION: Dyspnea TECHNIQUE: AP COMPARISON: 05/30/2022 chest radiograph FINDINGS: Cardiomediastinal: Cardiomediastinal silhouette is normal in size and configuration. Lungs: There are low lung volumes with bronchovascular crowding. Questionable retrocardiac opacity. No pleural effusion or pneumothorax. Osseous structures: No acute osseous abnormality. Impression: Questionable retrocardiac opacity, please correlate with clinical concern for developing pneumonia. Low lung volumes with bronchovascular crowding. Report Dictated on Electronically Signed By: Barry Castillo Electronically Signed Date/Time: 06/10/2022 8:50 AM EST XR chest 1 view [[id number]] Collected: 06/07/222325 Order Status: Completed Updated: 06/07/222327 Narrative: Patient Name: MOISES MADRID : 1960 [facility]#: [id number] Exam Date/Time: 06/07/2022 23:25 Procedure: XR CHEST 1 VIEW Ordering Provider: CASTELAN NICOLE Reason For Exam: chest pain CHEST - PORTABLE: CLINICAL INDICATION: Chest pain. . TECHNIQUE: Portable AP COMPARISON: 07/27/2013 Impression: FINDINGS/IMPRESSION: Limitations: Slightly limited by patient positioning Lines, tubes, and devices: None Cardiomediastinal silhouette: Heart size is within normal limits. Lungs/Pleura: Elevation of the right hemidiaphragm, similar to prior study. Borderline central pulmonary vascular congestion. No consolidation, sizable pleural effusions, or pneumothorax. Osseous structures: Degenerative spondylosis in the visualized spine. 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 Soft tissues: No soft tissue abnormality is detected. Report Dictated on Electronically Signed By: Cheko Chapa Electronically Signed Date/Time: 06/07/2022 11:27 PM EST Assessment Sepsis Acute pancreatitis with peripancreatic abscess s/p percutaneous drain (06/10) Acute hypoxic respiratory insufficiency 2/2 coronavirus and pulmonary vascular congestion Coronavirus Acute hyponatremia EDWARDO - resolved Right foot wounds - no active infection Hyperkalemia-resolved HTN HLD Hx of TBI, stroke and residual hemiplegia Chronic headaches Mood disorder Medical Decision Making -Patient presents to [facility] ED from [facility] on 06/08 with complaints of chest pain. Symptoms started day before admission given a PPI at the facility with no relief. In the ED, vital signs were stable. Labs are consistent with a potassium of 6.0, BUN 41, Scr 1.38, troponin negative x1, Lipase 3500, WBC 10.4, COVID/flu/RSV negative, chest x-ray showed borderline central pulmonary vascular congestion. EKG sinus tachycardia with no acute ST or T wave changes.. Given that nitroglycerin and Nitropaste in the ER with resolution of symptoms. Admitted under hospitalist group in the HICU for further evaluation. Underwent stress test which was negative and echocardiogram shows an EF of 70%. Cardiology consulted and recommends medical management with no further intervention. Patient continued to develop abdominal pain and CT abdomen showed inflammation around the pancreas with loculated fluid collection 5 x 3.6 cm around the greater curvature of the stomach concerning for an abscess. General surgery consulted and recommended IR percutaneous drain which was done on 06/10. ID and GI consulted given high complexity and currently on empiric antibiotics. No acute surgical intervention recommended at this time. Patient subsequently developed hypoxia and chest x-ray shows questionable right retro- cardiac opacity which could be due to pneumonia. Discussed with Dr. Dickerson and advise changing Zosyn to Ertapenem therapy on 06/14. However, patient vital signs change becoming more tachycardic, tachypneic and febrile. Diagnosed with sepsis and ID changed him to Vanco and meropenem. Chest x-ray yesterday obtained consistent with pulmonary vascular congestion and volume overload. Started on IV Lasix with nephrology consulted in the setting of hyponatremia. On exam this morning, patient more lethargic and alert and oriented x0. ABG obtained and ICU consulted. Discussed the case with k [address] Rachel and resident physician Dr. Donovan who was at the bedside to evaluate. Patient will likely need transfer to ICU for higher level of care. -am labs, replace lytes prn -increase activity -DVT prophylaxis: [x] Lovenox [] Heparin [] SCDs [x] Encourage ambulation [] Already on Anticoagulation Anticipated Discharge - Date - TBD - Location - Skilled Facility - Pending the following - Stability, specialist clearance Total time spent (which include face to face and non face to face encounters) : 60 minutes Toxic drug monitoring/narrow therapeutic index drug monitoring : # Drug name : Lovenox # Route administered : SubQ # Method of monitoring : CBC Extended Emergency Contact Information Primary Emergency Contact: Joslyn Hollins Relation: Other Asia Nelson MD Division of Hospitalist Medicine Inpatient Medical Services/[facility] [place] [facility]: Epic chat Images from the original note were not included. [facility] - Infectious Diseases Attending Progress Note Subjective: F/U for acute pancreatitis with peripancreatic abscess. S/p percutaneous drain catheter placement on 06/10/22, yielding 150 mL of bloody fluid, Cx -negative. A rept CT abdomen on 06/13 showed near complete resolution of focal fluid noted previously. He was found laying on bed, alert, fever spiked to 100.3 F last PM with tachycardia (P 121), c/o abdominal pain, weakness, decreased appetite, difficulty to speak clearly, weakness of right side of his body; appeared debilitated and ill. He had buckley catheter in place, and abdominal drain bag had scant purulent material. He has h/o TBI, stroke and residual hemiplegia. He was examined; notes, labs and imagings were reviewed, and treatment plan was discussed. Objective: Vitals: Patient Vitals for the past 24 hrs: BP Temp Temp src Pulse Resp SpO2 06/15/22 0859 (!) 146/99 36.9 C (98.4 F) Oral 106 14 -- 06/15/22 0403 (!) 166/95 36.8 C (98.2 F) Oral 109 17 95 % 06/15/22 0200 (!) 157/94 36.1 C (97 F) Oral 101 13 96 % 06/14/22 2240 (!) 147/93 -- -- 108 15 97 % 06/14/22 1950 (!) 173/99 37.9 C (100.3 F) Oral (!) 121 25 97 % Procal 0.47 Crp 195.0 Physical Exam Vitals and nursing note reviewed. Constitutional: General: He is not in acute distress. Appearance: He is well-developed. He is ill-appearing. Comments: Awake, appeared ill. Responds but difficulty to speak in full sentence. HENT: Head: Normocephalic and atraumatic. Right Ear: External ear normal. Left Ear: External ear normal. Nose: Nose normal. Mouth/Throat: Mouth: Mucous membranes are moist. Pharynx: Oropharynx is clear. No oropharyngeal exudate. Eyes: General: No scleral icterus. Extraocular Movements: Extraocular movements intact. Conjunctiva/sclera: Conjunctivae normal. Pupils: Pupils are equal, round, and reactive to light. Neck: Thyroid: No thyromegaly. Vascular: No JVD. Cardiovascular: Rate and Rhythm: Normal rate and regular rhythm. Pulses: Normal pulses. Heart sounds: Normal heart sounds. No murmur heard. No friction rub. No gallop. Pulmonary: Effort: No respiratory distress. Breath sounds: No stridor. Rhonchi present. No wheezing or rales. Comments: Short shallow breaths, moist breath sounds. Abdominal: General: There is no distension. Palpations: Abdomen is soft. There is no mass. Tenderness: There is abdominal distension and tenderness. There is no guarding or rebound. Hernia: No hernia is present. Comments: Abdominal drain site clean. Bloody material with purulence. diffuse tenderness . Genitourinary: Comments: Buckley with clear yellow urine. Musculoskeletal: General: No swelling or deformity. Normal range of motion. Cervical back: Normal range of motion and neck supple. Right lower leg: No edema. Left lower leg: No edema. Lymphadenopathy: Cervical: No cervical adenopathy. Skin: General: Skin is warm and dry. Coloration: Skin is not jaundiced. Findings: No rash. Comments: Tinea pedis. Erosion r 2nd toe. Neurological: General: No focal deficit present. Mental Status: Mental status is at baseline. Cranial Nerves: No cranial nerve deficit. Deep Tendon Reflexes: Reflexes normal. Comments: Weak RLE. Psychiatric: Mood and Affect: Mood normal. Behavior: Behavior normal. Labs: Recent Labs 06/13/22 03206/14/22 0226 06/15/22 0401 NA 129* 127* 128* K 4.0 4.2 4.2 CL 100 98 95* CO2 29 32* 33* BUN 8* 8* 10 CREATININE 0.76 0.71 0.81 GLUCOSE 189* 171* 175* CALCIUM 7.3* 7.9* 8.0* PROT 5.6* 5.9* 6.0* BILITOT 0.8 0.7 0.6 ALKPHOS 77 106 111 AST 35 41 29 ALT 26 36 26 PROCAL -- 0.47* -- Recent Labs 06/13/22 0329 06/14/22 0226 06/15/22 0401 WBC 14.4* 18.7* 19.0* HGB 11.9* 12.2* 12.2* HCT 35.5* 36.3* 37.1* PLT 135* 166 186 LYMPHOPCT 7.8* 10* 6* MONOPCT 9.8 3 6 BASOPCT 0.4 -- -- NEUTROABS 11.6* -- -- Procal 0.47 Crp 195.0 Lipase 434 339 Micro: No results for input(s): COVID19 in the last 72 hours. Collected Updated Procedure Result Status 06/11/2022 1334 06/12/2022 0002 Pneumonia PCR Panel [[id number]] Sputum Final result Component Value Staphylococcus aureus Not Detected Streptococcus agalactiae Not Detected Streptococcus pneumoniae Not Detected Streptococcus pyogenes Not Detected Haemophilus influenzae Not Detected Moraxella catarrhalis Not Detected Acinetobacter baumannii complex Not Detected Enterobacter cloacae complex Not Detected Escherichia coli Not Detected Klebsiella (Enterobacter) aerogenes Not Detected Klebsiella oxytoca Not Detected Klebsiella pneumoniae Not Detected Proteus spp Not Detected Pseudomonas aeruginosa Not Detected Serratia marcescens Not Detected Chlamydia pneumoniae Not Detected Legionella pneumophila Not Detected Mycoplasma pneumoniae Not Detected Adenovirus Not Detected Coronavirus Not Detected Human Metapneumovirus Not Detected Human Rhinovirus/Enterovirus Not Detected Influenza A Not Detected Influenza B Not Detected Parainfluenza virus Not Detected Respiratory Syncytial Virus Not Detected 06/11/2022 1334 06/13/2022 0722 Respiratory culture [[id number]] Sputum Preliminary result Component Value Respiratory culture Rare respiratory vikram present. P Gram Stain Result Rare Epithelial cells per low power field P Moderate Polymorphonuclear leukocytes per low power field P No organisms seen P 06/10/2022 1433 06/13/2022 0924 Aerobic and Anaerobic Culture with Stain [[id number]] Abscess from Abdomen In process Component Value No component results 06/10/2022 1433 06/13/2022 0924 Culture, Aerobic Bacteria with Gram Stain [[id number]] Abscess from Abdomen Final result Component Value Culture No growth at 72 hours Gram Stain Result Rare Polymorphonuclear leukocytes per low power field No organisms seen Corrected result: Previously reported as Few Gram negative cocci (see Result History) on 06/11/2022 at 1209 EST 06/10/2022 1433 06/12/2022 1200 Anaerobic culture [[id number]] Abscess from Abdomen Preliminary result Component Value Culture No growth to date. Incubation continues P 06/10/2022 1243 06/10/2022 2302 Legionella and Streptococcus Urine Antigen [[id number]] Urine, Clean Catch Final result Component Value Legionella pneumophila Ag Not Detected Streptococcus pneumoniae Ag Not Detected 06/10/2022 1000 06/10/2022 1338 SARS-CoV-2 and Respiratory PCR Panel [[id number]] Swab from Nasopharynx Final result Component Value SARS-CoV-2 Not Detected Adenovirus Not Detected Coronavirus HKU1 Not Detected Coronavirus NL63 Not Detected Coronavirus 229E Not Detected Coronavirus OC43 Not Detected Human Metapneumovirus Not Detected Human Rhinovirus/Enterovirus Not Detected Influenza A Not Detected Influenza B Not Detected Parainfluenza 1 Not Detected Parainfluenza 2 Not Detected Parainfluenza 3 Not Detected Parainfluenza 4 Not Detected Respiratory Syncytial Virus Not Detected Bordetella pertussis Not Detected Bordetella parapertussis Not Detected Chlamydia pneumoniae Not Detected Mycoplasma pneumoniae Not Detected 06/10/2022 0958 06/13/2022 1401 Blood culture #1 - Suspected Infection [[id number]] Blood, Venous Preliminary result Component Value Blood Culture No growth at 72 hours P 06/10/2022 0958 06/13/2022 1401 Blood culture #2 - Suspected Infection [[id number]] Blood, Venous Preliminary result Component Value Blood Culture No growth at 72 hours P 06/07/2022 2345 06/08/2022 0035 SARS-CoV-2, Flu A/B, and RSV Combo [[id number]] Swab from Nasopharynx Final result Component Value SARS-CoV-2 Not Detected Respiratory Syncytial Virus Not Detected Influenza A Not Detected Influenza B Not Detected Lines: PIV site ok Radiography/Echo/Other: Reviewed CT abdomen pelvis w contrast [[id number]] Collected: 06/13/222204 Order Status: Completed Updated: 06/13/222220 Narrative: Patient Name: MOISES MADRID : 1960 [facility]#: [id number] Exam Date/Time: 06/13/2022 17:39 Procedure: CT ABDOMEN PELVIS W CONTRAST Ordering Provider: EDGAR JONATHAN Reason For Exam: Abdominal pain, acute, nonlocalized CT ABDOMEN AND PELVIS WITH CONTRAST CLINICAL INDICATION: Abdominal pain, acute, nonlocalized TECHNIQUE: CT scan of the abdomen and pelvis, with IV contrast. Multiplanar reformations. 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 COMPARISON: June,. FINDINGS: Abdomen: Visualized lung bases again show partially confluent opacities in the right middle and bilateral lower lobes, with some air bronchograms mildly increased. Very small bilateral pleural effusions, about the same. Interval placement of percutaneous pigtail catheter extending into focal fluid noted previously along the greater curvature the stomach, which is considerably decreased and nearly resolved. Pancreas again prominent and shows diffuse peripancreatic fat stranding or infiltration, mildly increased. Fluid attenuation again seen adjacent to pancreatic tail, extending caudally along the anterior pararenal space and paracolic gutter not appreciably changed. No radiopaque gallstones. Liver shows diffusely decreased attenuation without focal abnormality. Spleen without significant abnormality. Punctate calcification and tiny cyst again noted in the right kidney without significant hydronephrosis. Left kidney grossly unremarkable. Adrenal glands without significant abnormality. Pelvis: Bowel grossly unremarkable. Appendix within normal limits. Very small amount of nonspecific, free fluid noted along right paracolic gutter and in the pelvis. No discrete abscess. Abdominal aorta is nonaneurysmal. Buckley catheter noted in decompressed urinary bladder. Axial skeleton grossly intact, with degenerative change again noted in the lumbar spine. Diffuse subcutaneous edema in the trunk and pelvis, new in the interval. Impression: 1. Interval placement of percutaneous pigtail catheter and near complete resolution of focal fluid noted previously along the greater curvature of the stomach. 2. Findings compatible with pancreatitis, mildly increased in the interval. 3. Hepatic steatosis, and nonobstructing right renal calcification. 4. Very small amount of nonspecific free fluid in the abdomen and pelvis, similar to comparison. Anasarca, new in the interval. 5. Mild atelectasis or infiltrates in right middle and bilateral lower lobes, mildly increased in the interval. Report Dictated on Electronically Signed By: Merrick Lopez Electronically Signed Date/Time: 06/13/2022 10:20 PM EST Procedure Component Value Units Date/Time US abdomen limited [[id number]] Collected: 06/13/22823 Order Status: Completed Updated: 06/13/22829 Narrative: Patient Name: MOISES MADRID : 1960 Exam Date/Time: 06/13/2022 07:20 Procedure: US ABDOMEN LIMITED Ordering Provider: CORTEZ JONATHAN Reason For Exam: PANCREATITIS - ACUTE ULTRASOUND ABDOMEN RUQ CLINICAL HISTORY:PANCREATITIS - ACUTE COMPARISON: CT 06/10/2022 TECHNIQUE: Grayscale sonographic images were obtained of the right upper quadrant. Color Doppler was utilized. FINDINGS: Portions the exam are limited by overlying bowel gas, patient immobility and body habitus, as well as due to indwelling epigastric drainage catheter. Liver: Left lobe is not well visualized. Right hepatic parenchymal echotexture is slightly heterogeneous and increased. No discrete lesions on submitted images. Biliary system: No sonographic evidence of intrahepatic biliary ductal dilatation. The common bile duct is normal in caliber and measures 2 mm. Gallbladder: Gallbladder appears well-distended. Several small stones are present. No pericholecystic fluid or gallbladder wall thickening. There was a negative sonographic Cole's sign reported by the registered vascular technologist (rvt). Pancreas: Obscured by bowel gas. Right Kidney: Largely obscured by bowel gas. Additional findings: Trace perihepatic ascites. Impression: 1. Technically limited evaluation. In particular the left hepatic lobe, pancreas, and right kidney are not well visualized or evaluated. 2. Cholelithiasis without sonographic evidence of acute cholecystitis. 3. No biliary ductal dilatation Report Dictated on Electronically Signed By: Cheko Chapa Electronically Signed Date/Time: 06/13/2022 8:29 AM EST XR chest 1 view [[id number]] Collected: 06/12/22 1254 Order Status: Completed Updated: 06/12/22 1257 Narrative: Patient Name: MOISES MADRID : 1960 [facility]#: [id number] Exam Date/Time: 06/12/2022 12:43 Procedure: XR CHEST 1 VIEW Ordering Provider: EDGAR JONATHAN Reason For Exam: DYSPNEA EXAMINATION: XR chest AP. EXAM DATE & TIME: 06/12/2022 12:43 PM EST INDICATION: DYSPNEA ADDITIONAL INFORMATION: 61-year-old male with dyspnea presents for evaluation COMPARISON: Chest radiographs dated 06/10/2022, 06/07/2022 and 07/27/2013 TECHNIQUE: Frontal view of the chest was obtained. FINDINGS: Lines/support devices: Cardiac leads and defibrillator pads project over the chest, somewhat limiting evaluation. Cardiomediastinal silhouette: Obscured. Lungs/pleura: There are low lung volumes. Bibasilar scarring/atelectasis is seen. Indistinctness of the costophrenic angles is noted. No evidence of pneumothorax. Osseous structures: Degenerative changes of the spine and shoulders are seen. No acute osseous abnormality is demonstrated. The bones are osteopenic. Other findings: None. Impression: Low lung volumes with bibasilar scarring/atelectasis and indistinctness of the costophrenic angles, suggestive of small bilateral pleural effusions. Report Dictated on Electronically Signed By: Asad Mccarthy Electronically Signed Date/Time: 06/12/2022 12:56 PM EST XR foot 3+ views right [[id number]] Collected: 06/12/22 125 Order Status: Completed Updated: 06/12/221252 Narrative: Patient Name: MOISES MADRID : 1960 Exam Date/Time: 06/12/2022 12:44 Procedure: XR FOOT 3+ VIEWS RIGHT Ordering Provider: EDGAR JONATHAN Reason For Exam: r/o OM RIGHT FOOT: CLINICAL INDICATION: Possible osteomyelitis. TECHNIQUE: AP, Lat, Oblique COMPARISON: 05/09/2011 FINDINGS: There is no evidence for fracture or dislocation. Degenerative changes in the midfoot and first MTP joint. Dense Achilles tendon calcifications again seen. Dorsal soft tissue swelling overlying the mid foot. No evidence of soft tissue gas, osseous erosive change or periostitis. Note that if there is persistent concern for osteomyelitis, MRI is a more sensitive means of evaluation. Report Dictated on Electronically Signed By: Ezra Guthrie Electronically Signed Date/Time: 06/12/2022 12:[address] guided abscess fluid collection drainage [[id number]] Collected: 06/10/22 1607 Order Status: Completed Updated: 06/10/22 1610 Narrative: Patient Name: MOISES MADRID : 1960 Exam Date/Time: 06/10/2022 14:50 Procedure: CT GUIDED ABSCESS FLUID COLLECTION DRAINAGE Ordering Provider: EDGAR JONATHAN Reason For Exam: PROCEDURE: Drainage catheter placement Procedural Personnel Attending physician(s): Jus Barlow Indication: Peripancreatic fluid collection Additional clinical history: None Complications: No immediate complications. Impression: Percutaneous placement of a 10 Prydeinig drainage catheter into peripancreatic fluid collection, yielding 150 mL of bloody fluid. __ PROCEDURE SUMMARY: - Intraperitoneal drainage catheter placement under CT guidance - Additional procedure(s): None PROCEDURE DETAILS: Pre-procedure Consent: Informed consent for the procedure including risks, benefits and alternatives was obtained and time-out was performed prior to the procedure. Preparation: The site was prepared and draped using maximal sterile barrier technique including cutaneous antisepsis. Anesthesia/sedation Moderate sedation was provided under my supervision with patient monitored by a trained radiology nurse. Total sedation time of 25 minutes. Drainage catheter placement The patient was positioned supine. Initial imaging was performed. Local anesthesia was administered. The fluid collection was accessed using an access needle followed by wire insertion and serial dilation and a drainage catheter was placed. Position of the drainage catheter within the fluid collection was confirmed. - Initial imaging findings: Peripancreatic fluid collection - Drainage catheter placed: 10 Prydeinig APD - External catheter securement: Non-absorbable suture and adhesive anchoring device - Post-drainage imaging findings: Drainage catheter in adequate position with pigtail in the most superior aspect of the fluid collection. Contrast Contrast agent: None Contrast volume (mL): [address] dose length product (mGy-cm): 811 Additional Details Additional description of procedure: None Equipment details: None Specimens removed: Aspirated fluid was sent for analysis. Estimated blood loss (mL): Less than 10 Report Dictated on Electronically Signed By: Jus Barlow Electronically Signed Date/Time: 06/10/2022 4:[address] abdomen pelvis wo IV contrast [[id number]] Collected: 06/10/22914 Order Status: Completed Updated: 06/10/22930 Narrative: Patient Name: MOISES MADRID : 1960 Exam Date/Time: 06/10/2022 08:50 Procedure: CT ABDOMEN PELVIS WO IV CONTRAST Ordering Provider: EDGAR JONATHAN Reason For Exam: Abdominal pain, acute, nonlocalized CT ABDOMEN AND PELVIS WITHOUT IV CONTRAST CLINICAL INDICATION: Acute abdominal pain, nonlocalized TECHNIQUE: Axial CT images through the through the abdomen and pelvis with 3 mm reconstruction without intravenous intravenous contrast media. Enteric contrast was not administered. Coronal and sagittal reconstructions included. 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 COMPARISON: None. FINDINGS: Examination is somewhat limited in evaluation of solid organs and vascular structures due to the lack of intravenous contrast. Additional limitations: Somewhat limited evaluation of the GI tract without enteric contrast. Mild motion and streak artifact limits evaluation to some extent Lung base: Trace to small pleural effusions with mild bibasilar atelectasis/pneumonia. Liver: Hepatic steatosis. Gallbladder/Biliary tree: Gallbladder is somewhat inconspicuous possibly due to the presence of sludge or less likely calculi.. No intra or extrahepatic biliary ductal dilatation Spleen: Within normal limits. Pancreas: Pancreas is heterogeneous with surrounding poorly defined and more confluent fluid particularly at the level of the pancreatic body and tail with extension along the anterior left pararenal space as well as into the lesser sac. Small pocket of loculated fluid along the greater curvature on series 3 image 46 measuring 5.0 x 3.6 cm with distal extension. Fluid demonstrates borderline complexity. Adrenals: No discrete mass or nodule detected. Kidneys/pelvic organs: No obstructive uropathy. Punctate nonobstructing calculus right kidney. Urinary bladder is collapsed limiting evaluation. Borderline prostamegaly. GI tract: A few prominent air distended loops of small bowel without evidence of mechanical obstruction. Normal appendix is identified. Mild to moderate amount retained colonic stool more so proximally. No colonic wall thickening or pericolonic stranding. . Peritoneal cavity/retroperitoneum: No pneumatosis or pneumoperitoneum. No bulky adenopathy. Small amount of lower abdominal/pelvic ascites which appears to be simple in complexity. Vasculature: Normal caliber abdominal aorta. Osseous structures/soft tissues: Degenerative spondylosis in the visualized spine with mild scoliotic curvature. Suspected developmental spinal canal narrowing. Tiny left greater than right fat-containing inguinal hernia without bowel involvement. Trace body wall edema. Gynecomastia Impression: 1. Acute pancreatitis with surrounding poorly defined and more confluent fluid particularly at the level of the pancreatic body and tail with extension along the anterior left pararenal space as well as into the lesser sac. Small pocket of loculated fluid along the greater curvature of the stomach measures 5.0 x 3.6 cm with distal extension. Fluid demonstrates borderline complexity. 2. Nonobstructing punctate right renal calculus. 3. Trace to small pleural effusions with mild bibasilar atelectasis/pneumonia. 4. Questionable trace gallbladder sludge/calculi. Report Dictated on Electronically Signed By: Cheko Chapa Electronically Signed Date/Time: 06/10/2022 9:30 AM EST XR chest 1 view [[id number]] Collected: 06/10/22843 Order Status: Completed Updated: 06/10/22850 Narrative: Patient Name: MOISES MADRID : 1960 Exam Date/Time: 06/10/2022 08:36 Procedure: XR CHEST 1 VIEW Ordering Provider: EDGAR JONATHAN Reason For Exam: DYSPNEA CHEST RADIOGRAPH CLINICAL INDICATION: Dyspnea TECHNIQUE: AP COMPARISON: 05/30/2022 chest radiograph FINDINGS: Cardiomediastinal: Cardiomediastinal silhouette is normal in size and configuration. Lungs: There are low lung volumes with bronchovascular crowding. Questionable retrocardiac opacity. No pleural effusion or pneumothorax. Osseous structures: No acute osseous abnormality. Impression: Questionable retrocardiac opacity, please correlate with clinical concern for developing pneumonia. Low lung volumes with bronchovascular crowding. Report Dictated on Electronically Signed By: Barry Castillo Electronically Signed Date/Time: 06/10/2022 8:50 AM EST XR chest 1 view [[id number]] Collected: 06/07/222325 Order Status: Completed Updated: 06/07/222327 Narrative: Patient Name: MOISES MADRID : 1960 Exam Date/Time: 06/07/2022 23:25 Procedure: XR CHEST 1 VIEW Ordering Provider: CASTELAN NICOLE Reason For Exam: chest pain CHEST - PORTABLE: CLINICAL INDICATION: Chest pain. . TECHNIQUE: Portable AP COMPARISON: 07/27/2013 Impression: FINDINGS/IMPRESSION: Limitations: Slightly limited by patient positioning Lines, tubes, and devices: None Cardiomediastinal silhouette: Heart size is within normal limits. Lungs/Pleura: Elevation of the right hemidiaphragm, similar to prior study. Borderline central pulmonary vascular congestion. No consolidation, sizable pleural effusions, or pneumothorax. Osseous structures: Degenerative spondylosis in the visualized spine. 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 Soft tissues: No soft tissue abnormality is detected. Report Dictated on Electronically Signed By: Cheko Chapa Electronically Signed Date/Time: 06/07/2022 11:27 PM EST Antimicrobials, Start/End Dates: Pip/tazo 06/10- Vanco 06/12 Ceftr 06/10 Azithro 06/10 Erta 06/14- Impression: Sepsis (fever, worsening leukocytosis, tachycardia). Culture blood x2 Acute pancreatitis with peripancreatic abscess. S/p percutaneous drain catheter placement on 06/10/22. Follow lipase and inflammatory markers. Pneumonia. Follow sputum cx. Abdominal distension and pain. Worsening leukocytosis and thrombocytopenia. Follow. Lethargy and debility. H/o TBI, stroke and Rt hemiplegia. Plan: Pt sick due to sepsis due to acute pancreatitis with peripancreatic abscess, and pneumonia; underwent percutaneous drain placement, Cxs -negative. Fever spiked last night with tachycardia. Pt with distended abdomen and worsening leukocytosis while on broad spectrum antimicrobial agent. However, a rept CT abdomen on 06/13 showed near complete resolution of focal fluid noted previously. Cultures unremarkable, which may indicate an inflammatory process only. Follow inflammatory markers on 06/16. Change antb to meropenem and vancomycin. Will follow. Total time 50 minutes on this day of encounter includes counseling, coordinating plan of care, record and documentation review before and after visit including documentation and time not explicitly included on EMR time stamp for accounting for open encounter. 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 Allergies Allergen Reactions Hydralazine Unknown Sulfamethoxazole-Trimethoprim Unknown Temazepam Unknown Tramadol Unknown Clindamycin Rash Burn, rash Burn, rash Oxygen Level: O2 Device: nasal cannula Liters of Oxygen: 3L Current Diet Level: Dietary Orders (From admission, onward) Start Ordered 06/13/22 1358 Supplement:Lunch, Dinner; Chocolate Magic Cup Until discontinued Question Answer Comment Frequency Lunch Frequency Dinner Select supplement: Chocolate Magic Cup 06/13/22 1357 06/13/22 1358 Supplement:Breakfast; Pro-Stat Modular Until discontinued Question Answer Comment Frequency Breakfast Select supplement: Pro-Stat Modular Comment mixed in mod thick cranberry juice 06/13/22 1400 06/13/22 1218 Adult diet Dysphagia - Pureed; Moderately Thick (Honey); Low Fat (less than or equal to 50 gm/day) Diet effective now Question Answer Comment Diet type Dysphagia - Pureed Fluid consistency Moderately Thick (Honey) GI restriction: Low Fat (less than or equal to 50 gm/day) 06/13/22 1218 Pain: RN managing patient pain, no current c/o pain. S: Pt indicated that he is doing better. I was up (x2) demonstrated on his fingers. O: Oral motor strengthening. A: Pt demonstrates continued slow oral motor movement. Oral manipulation to right side to increase sensation and assist with anterior loss. Pt completed lip squeeze with resistance x5, lip smacks x10, puff cheeks x5. Slow coordination of movements. Deep abdominal breathing cued, fair production, however pt was able to produce a cough. Non-productive. (Yankauer suction scant amount x1) Oral care completed. Taking ice chips for free water without overt deficits. Suggest single ice chips after oral care for comfort. Pt asking for more. Suggest FREE WATER via ice chips after oral care and between meals Recommended Diet and Intervention Diet Solids Recommendation: Dysphagia Pureed (Dysphagia I) Liquid Consistency Recommendation: Moderately Thick (Honey) Recommended Form of Meds: Crushed in puree as able Therapeutic Interventions: Judd Water Protocol Compensatory Swallowing Strategies Compensatory Swallowing Strategies : Upright as possible for all oral intake, No straws, External pacing, Small bites/sips Treatment/Goals Encounter Problems Encounter Problems (Active) Swallowing Patient will tolerate recommended food and liquid consistencies without clinical signs and symptoms of aspirations (Progressing) Start: 06/11/22 Expected End: 06/25/22 Patient will participate in instrumental assessment of swallowing as appropriate (Not Addressed) Start: 06/11/22 Expected End: 06/25/22 Education Education Given: safety, diet recommendations, swallowing strategies Education Given To: Patient, RN RN name: Kristi Palmer Response: Needs reinforcement P: Continue dysphagia POC. Advanced diet trials as appropriate after MBS. D/W RN pt is currently appropriate with this diet. Treatment Plan Requires CAM SPECIALIST Intervention: Yes Frequency/Duration: Frequency of Treatment: 3 days/wk for Duration of Treatment: 2 weeks Therapy Time CAM SPECIALIST Individual Minutes Time In: 1442 Time Out: 1513 Minutes: 31 ALISHA Canchola 06/15/2022 3:32 PM Physical Therapy Facility/Department: [facility] Physical Therapy Daily Treatment Note NAME: Moises Madrid : 1960 Date of Service: 06/15/2022 Discharge Recommendations: Subacute/[facility] Facility PT Equipment Recommendations Equipment Needed: (TBD at next level of care) Assessment Assessment: Pt demonstrates limited tolerance to activity but with an improvement in active participation. Pt was able to follow directions for ther ex with increased assist needed to perform on R LE. Pt demonstrated a decrease in assist needed for bed mobility and maintaining of sitting balance. Pt is still not at his functional baseline and will benefit from further therapy to improve strength and functional mobility Requires PT Follow-Up: Yes Patient Diagnosis(es): The primary encounter diagnosis was Chest pain, unspecified type. 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 has a past medical history of Anxiety, Ataxia, Bipolar disorder (HCC), Chronic pain, Constipation, Contracture, right hand, Depression, Dysphagia, Dysphagia, Dysphonia, Edema, GERD (gastroesophageal reflux disease), Headache, Hemiplegia (CMS/HCC) (HCC), Hyperlipidemia, Hypertension, Insomnia, Muscle weakness, Neuropathy, and TBI (traumatic brain injury). has a past surgical history that includes Craniotomy. Restrictions Restrictions/Precautions Restrictions/Precautions: Fall Risk, Contact Precautions, General Precautions Position Activity Restriction Other position/activity restrictions: O2 n.c., tele, salvador, buckley, drain, suicidal ideations Subjective General Chart Reviewed: Yes Patient Assessed for Rehabilitation Services: Yes Additional Pertinent Hx: Pt has podiatry consult pending. Deferred transfers at this time. Family / Caregiver Present: No Follows Commands: Impaired Other (Comment): Increased time Subjective Subjective: Pt would nod head or answer in short phrases. Primarily kept eyes closed Pain Assessment Pain Score: 7 (nursing aware.) Pain Location: Abdomen Pain Interventions: Repositioned, Ambulation/increased activity Cognition/Orientation Arousal/Alertness: Delayed responses to stimuli Following Commands: Follows one step commands with increased time, Follows one step commands with repetition Attention Span: Attends with cues to redirect Problem Solving: Decreased awareness of errors, Assistance required to generate solutions, Assistance required to identify errors made Initiation: Requires cues for some Sequencing: Requires cues for all Cognition Comment: Pt appears lethargic Objective Bed mobility Supine to Sit: Maximum assistance Sit to Supine: Maximum assistance Scooting: Dependent/Total, 2 Person assistance Comment: Pt cued for technique to position self with pt assisting with movement of LE's and R UE but unable to maintain UE positioning. Pt assisted to scoot LE's to EOB and to roll to prepare for upright transition and then required MAX A to complete trunk rotation and initiate elevation with pt assisting with L UE. Use of draw pad used to scoot hips to EOB and find COB. Once found, pt maintained. Pt initiated movement to return to supine with pt guiding trunk but tended to go more posteriorly than sideways but assisted to elevate LE's onto bed. Pt then provided with bedrail to assist to shift self within the bed with L UE and MAX A of therapist using draw pad. Pt then required dependent assist of 2 to scoot to HOB with draw pads. Balance Sitting - Static: Fair Comments: Pt sat at EOB for 6 minutes without assist to support self. Pt was abl eto maintain midline posture majority of time with starting to lean to R towards end of session requiring cueing to adjust with good follow thru. Pt's posture tended to be rounded with forward head but would self correct head position with cueing but poorly maintained. Exercises Quad Sets: 1 set / 10 reps in supine B LE with weak contraction on R LE but present Heelslides: 1 set / 10 reps in supine B LE with assist to decrease friction and increased guidance on RLE Gluteal Sets: 1 set / 10 reps in supine Hip Abduction: 1 set / 10 reps in supine B LE with assist to decrease friction and increased assist to abd R LE but good ADDuction present with cueing Knee Short Arc Quad: 1 set / 10 reps in supine B LE with assist on R LE to attain increased ROM Ankle Pumps: 1 set / 10 reps in supine B LE with PROM on R LE Comments: Exercises performed to increase strength and flexibility for mobility with decreased active movement on R LE Plan Times per Week: 3 visits Current Treatment Recommendations: (Cont ther ex and functional training) Safety Safety Devices Type of Devices: All fall risk precatuions in place, Call light within reach, Nurse notified, Patient at risk for falls, Left in bed AM-PAC Score AM-PAC Inpatient Mobility Raw Score: 6 Mobility Inpatient [facility] G-Code Modifier: CN Goals Encounter Problems Encounter Problems (Active) Balance Patient will maintain static sitting balance for 5 minutes with SBA in order to demonstrate improved postural control and prepare for out of bed mobility. (Progressing) Start: 06/11/22 Expected End: 06/16/22 Exercise Patient will complete lower extremity exercises for 3 sets / 10 reps in order to improve strength and activity tolerance for mobility. (Progressing) Start: 06/11/22 Expected End: 06/16/22 Transfers Patient will perform bed mobility with mod assist in order to improve independence and prepare for out of bed mobility. (Progressing) Start: 06/11/22 Expected End: 06/16/22 Patient will complete sit to stand transfer with max assist to none in order to improve safety and prepare for out of bed mobility. (Not Addressed) Start: 06/11/22 Expected End: 06/16/22 Education Education Given To: Patient Education Provided: Goals, PT Role, Plan of Care, Home Exercise Program, Precautions, Functional Mobility Training, General Safety Education Method: Demonstration, Verbal, Teach Back Barriers to Learning: Cognition Education Outcome: Verbalized understanding, Demonstrated understanding, Continued education needed Therapy Time Individual Co-treatment Time In 1315 Time Out 1344 Minutes 29 Timed Code Treatment Minutes: 25 Minutes (ther ex and ther act) Jessica Lott PTA Occupational Therapy Facility/Department: [facility] Occupational Therapy Treatment NAME: Moises Madrid : 1960 Date of Service: 06/15/2022 Discharge Recommendations: Subacute/[facility] Facility Assessment Performance deficits / Impairments: Decreased functional mobility , Decreased ADL status, Decreased ROM, Decreased strength, Decreased sensation, Decreased endurance, Decreased cognition, Decreased safe awareness, Decreased balance, Decreased vision/visual deficit, Decreased high-level IADLs, Decreased fine motor control, Decreased coordination, Decreased posture Assessment: Pt progressing towards OT goals requiring max x1 for bed mobility and still max x2 to stand. Pt appears in brighter spirits today. OT continues to recommend SNF for discharge Prognosis: Fair Exam: AM PAC REQUIRES OT FOLLOW-UP: Yes Patient Diagnosis(es): The primary encounter diagnosis was Chest pain, unspecified type. Diagnoses of Hyperkalemia, EDWARDO (acute kidney injury) (CMS/HCC) ([facility]), Chest pain on breathing, Stable angina pectoris (CMS/HCC) (HCC), Idiopathic chronic venous hypertension of right lower extremity with ulcer ([facility]), Peripheral vascular disease, unspecified ([facility]), Venous insufficiency (chronic) (peripheral), and Non-pressure chronic ulcer of other part of right foot with fat layer exposed ([facility]) were also pertinent to this visit. has a past medical history of Anxiety, Ataxia, Bipolar disorder ([facility]), Chronic pain, Constipation, Contracture, right hand, Depression, Dysphagia, Dysphagia, Dysphonia, Edema, GERD (gastroesophageal reflux disease), Headache, Hemiplegia (CMS/HCC) ([facility]), Hyperlipidemia, Hypertension, Insomnia, Muscle weakness, Neuropathy, and TBI (traumatic brain injury). has a past surgical history that includes Craniotomy. Restrictions Restrictions/Precautions Restrictions/Precautions: Fall Risk, Contact Precautions, General Precautions Required Braces or Orthoses?: No Position Activity Restriction Other position/activity restrictions: O2 n.c., tele, salvador, buckley, drain Vision/Hearing Hearing: Functional/adequate for paticipation in therapy Cognition/Orientation Arousal/Alertness: Appropriate responses to stimuli Following Commands: Follows one step commands with increased time Attention Span: Appears intact Memory: Appears intact Safety Judgement: Decreased awareness of need for safety Problem Solving: Decreased awareness of errors, Assistance required to generate solutions, Assistance required to identify errors made Insights: Decreased awareness of deficits Initiation: Requires cues for some Sequencing: Requires cues for some Cognition Comment: Pt cognition/affect appears improved this date Overall Orientation Status: Within Functional Limits Subjective Subjective Subjective: Pt supine in bed, agreeable to OT treatment General Comments Comments: Pt ok to see per RN Pain Assessment Pain Assessment: No/denies pain Pain Score: 0 - No pain Objective Balance Sitting Balance: Stand by assistance (initial assistance required but able to progress with cues and extended time) Bed mobility Supine to Sit: Maximum assistance Sit to Supine: Maximum assistance Scooting: Maximal assistance, 2 Person assistance Comment: Pt able to transition from supine to sit with max assist x1 and use of glide sheet, pt assist byt moving B LE and used R UE to reach across and grab onto OT for assistance. Pt initially required assist for sitting balance but able to progess to SBA for sitting balance. Max assist x1 to return to supine. Max x2 for adjusting and boosting Transfers Sit to stand: Maximum assistance, 2 Person assistance Stand to sit: Maximum assistance, 2 Person assistance Transfer Comments: max assist x2 to stand from EOB up to FWW, continues to have HEAVY L lean unable to correct with verbal tactile cues. Plan Times per Week: 5 visits Current Treatment Recommendations: Strengthening, ROM, Balance Training, Functional Mobility Training, Endurance Training, Cognitive Reorientation, Modalities (comment), Patient/Caregiver Education & Training, Equipment Evaluation, Education, & procurement, Safety Education & Training, Pain Management, Positioning, Self-Care / ADL, Home Management Training, Neuromuscular Re-education Plan Comment: continue with established OT POC Safety Safety Devices in place: Yes Type of devices: All fall risk precautions in place, Gait belt, Patient at risk for falls, Left in bed, Call light within reach, Nurse notified Restraints Initially in place: No AM-PAC Score AM-PAC Inpatient Daily Activity Raw Score: 10 ADL Inpatient [facility] G-Code Modifier: CL Goals Encounter Problems Encounter Problems (Active) Balance Patient will maintain static standing balance for 3 minutes with mod assist in order to demonstrate decreased risk of falling. (Progressing) Start: 06/12/22 Expected End: 06/26/22 Patient will maintain static sitting balance for 10 minutes with SBA in order to demonstrate improved postural control and prepare for out of bed mobility. (Progressing) Start: 06/12/22 Expected End: 06/26/22 Bathing Patient will bathe body with mod assist (Not Addressed) Start: 06/12/22 Expected End: 06/26/22 Dressing Upper Extremities Patient will complete upper body dressing with mod assist (Not Addressed) Start: 06/12/22 Expected End: 06/26/22 Dressings Lower Extremities Patient will dress lower body with mod assist (Not Addressed) Start: 06/12/22 Expected End: 06/26/22 Eating Patient will feed self with min assist (Not Addressed) Start: 06/12/22 Expected End: 06/26/22 Grooming Patient will complete daily grooming tasks while sitting EOB with min assist (Not Addressed) Start: 06/12/22 Expected End: 06/26/22 Toileting Patient will complete toileting tasks at bedside commode with mod assist. (Not Addressed) Start: 06/12/22 Expected End: 06/26/22 Transfers Patient will complete functional transfer with rolling walker with mod assist in order to prepare for ambulation. (Progressing) Start: 06/12/22 Expected End: 06/26/22 Patient will perform bed mobility with mod assist in order to improve independence and prepare for out of bed mobility. (Progressing) Start: 06/12/22 Expected End: 06/26/22 Therapy Time Individual Co-treatment Time In 0934 Time Out 0958 Minutes 24 Timed Code Treatment Minutes: 24 Minutes (FA x2) Deja Saeed OT [facility] - Surgery [facility] Physicians Surgery Patient Name: Moises Madrid Date: 06/15/2022 Patient seen and examined by myself and I agree with SKY note below Resting in bed and appears comfortable Abdominal complaints about the same Abdomen soft tender epigastric no peritoneal signs minimal output in drainage bag Labs and imaging reviewed Assessment /Plan: Acute pancreatitis with peripancreatic fluid collection status post drainage and no growth seen in fluid No acute surgical issues and none anticipated this hospitalization Continue current management per medical team and infectious disease Surgery will continue to follow for now Patient counseled on risks,benefits, and alternatives of treatement plan at length. Patient states an understanding and willingness to proceed with plan. I personally supervised my SKY and/or resident in the evaluation and management of Moises Madrid in the development of a treatment plan for this patient. I personally interviewed the patient and performed an individual physical examination. In addition, I discussed the patient's condition and treatment options with them. I have also reviewed and agree with the past medical, family and social history and care plan unless otherwise noted. All of the patient's questions were answered. This case represents moderate level care including chart review, care coordination and face to face encounter was spent discussing/counseling the patient regarding the care plan for this patient. The patient was seen and examined independently and relevant data reviewed by myself. A full chart review was performed. Remigio Napier MD [facility] General Surgery 2:30 PM 06/15/2022 GENERAL SURGERY Progress Note PATIENT NAME: Moises Madrid TODAY'S DATE: 06/15/2022 SUBJECTIVE: Patient seen this morning resting in bed. He states that he feels alright without abdominal pain, nausea/vomiting, fever/chills. Patient states that his appetite is slowly returning and that he is going to try to eat more food. Per nursing, ~30 ml of bloody drainage removed from drainage bag. Pain controlled Yes Other Complaints No Flatus/BM/or Ostomy function Yes OBJECTIVE: VITALS: BP (!) 166/95 (BP Location: Left arm, Patient Position: Lying) Pulse 109 Temp 36.8 C (98.2 F) (Oral) Resp 17 Ht 6' 2 (1.88 m) Wt 253 lb (115 kg) SpO2 95% BMI 32.48 kg/m INTAKE/OUTPUT: I/O last 3 completed shifts: In: - (0 mL/kg) Out: 3450 (30.1 mL/kg) [Urine:3400 (0.8 mL/kg/hr); Drains:50] Weight: 114.8 kg I/O this shift: In: - Out: 350 [Urine:350] REVIEW OF SYSTEMS: Pertinent positives and negatives as per interval history section PHYSICAL EXAM: CONSTITUTIONAL: A&O x 3, LUNGS: Resp effort easy and unlabored, breath sounds normal CARDIOVASCULAR: RRR ABDOMEN: soft, nondistended, nontender, peritoneal signs absent, drain in place with ~15 ml bloody drainage in bag MUSCULOSKELETAL: Normal range of motion NEUROLOGIC: Level of Alertness: alert PSYCHIATRIC: Speech is normal SKIN: Warm, dry, and intact Data: CBC: Recent Labs 06/13/2232806/14/2222506/15/22 040 WBC 14.4* 18.7* 19.0* HGB 11.9* 12.2* 12.2* HCT 35.5* 36.3* 37.1* PLT 135* 166 186 BMP: Recent Labs 06/13/2232806/14/2222506/15/22 040 NA 129* 127* 128* K 4.0 4.2 4.2 CL 100 98 95* CO2 29 32* 33* BUN 8* 8* 10 CREATININE 0.76 0.71 0.81 GLUCOSE 189* 171* 175* Hepatic: Recent Labs 06/13/2232806/14/2222506/15/22 0401 AST 35 41 29 ALT 26 36 26 BILITOT 0.8 0.7 0.6 ALKPHOS 77 106 111 ASSESSMENT AND PLAN: 61 y/o M with an infected acute peripancreatic fluid collection s/p CT guided drain placement 06/10/22 - WBC increased to 19.0- Monitor leukocytosis - US abdomen with cholelithiasis without evidence of acute cholecystitis - Drain culture: Gram + cocci initially then addended by lab with no organisms seen- Continue drain mgmt- may be able to remove prior to discharge - IV antibiotics - ID following- antibiotic management per them - Continue diet as tolerated - Medical mgmt per primary team - Psych following for major depression and suicidal ideation- psych meds restarted - Cardiology following Disposition: Patient with no abdominal pain today, continued drainage in bag. No surgical intervention planned at present, needs medical optimization prior to considering laparoscopic cholecystectomy- may follow up as outpatient PRN. Continue diet as tolerated. Will continue to follow. Patient counseled on risks, benefits, and alternatives of treatment plan today. Patient states an understanding and willingness to proceed with plan. [facility] Progress Note Patient Name: Moises Madrid Patient Age: 61 y.o. Date: 06/15/2022 SUBJECTIVE: pt. In isolation Sob.c/o abd. Pain. No cp. PANCREATITIS. CHOLECYSTITIS. RENAL STONE, Stress . >> nl.. ef=65 % Leucocytosis.>>20. Blood befkv=558 mg. Gi consult reviewed. No cp. VITALS BP (!) 166/95 (BP Location: Left arm, Patient Position: Lying) Pulse 109 Temp 36.8 C (98.2 F) (Oral) Resp 17 Ht 6' 2 (1.88 m) Wt 253 lb (115 kg) SpO2 95% BMI 32.48 kg/m I&O Intake/Output Summary (Last 24 hours) at 06/15/2022 1003 Last data filed at 06/15/2022 0700 Gross per 24 hour Intake -- Output 2180 ml Net -2180 ml OBJECTIVE: 10 systems reviewed as seen below Neck: Neck JVP 0, No carotid bruits, thyroid not enlarged Cardiovascular system: NSR, Short systolic murmur, no gallop Chest: normal breath sounds Abdomen: Abdomen soft/non-tender, no organomegaly, bowel sounds present Extremities: No edema, no varicosity Endocrine : Hypothyroidism No Diabites yes GI system : GIB No Renal : CKD No TUBE BENDER HAND : CVA/TIA No Musculoskeletal system : DJD No LAB Lab Results Component Value Date NA 128 (L) 06/15/2022 K 4.2 06/15/2022 CL 95 (L) 06/15/2022 CO2 33 (H) 06/15/2022 BUN 10 06/15/2022 CREATININE 0.81 06/15/2022 GLUCOSE 175 (H) 06/15/2022 CALCIUM 8.0 (L) 06/15/2022 Lab Results Component Value Date WBC 19.0 (H) 06/15/2022 HGB 12.2 (L) 06/15/2022 HCT 37.1 (L) 06/15/2022 MCV 92.1 06/15/2022 PLT 186 06/15/2022 Lab Results Component Value Date TROPONINI <0.012 06/08/2022 Lab Results Component Value Date TSH 3.216 06/07/2022 No components found for: LABA1C No components found for: EAG Recent Labs 06/14/22 0226 06/15/22 0401 ALKPHOS 106 111 ALT 36 26 AST 41 29 BILITOT 0.7 0.6 LIPASE 434* -- Lab Results Component Value Date BNP 49 06/07/2022 CARDIAC TESTING EKG: Encounter Date: 06/07/22 ECG 12 lead Result Value Heart Rate 111 QRSD Interval 94 QT Interval 352 QTC Interval 479 P [place] 43 QRS [place] -36 T Wave [place] 60 OH Interval 160 Impression SINUS TACHYCARDIA LEFT AXIS DEVIATION LATE PRECORDIAL R/S TRANSITION LEFT VENTRICULAR HYPERTROPHY Electronically Signed On 06-10-2022 9:55:05 EST by Dimple Wade Echo: Transthoracic echocardiogram (TTE) complete with contrast, bubble, strain, and 3D PRN Result Date: 06/08/2022 Left Ventricle: Left ventricle size is normal. Normal wall thickness. Normal left ventricular systolic function. EF by 2D Simpsons Biplane is 70%. Normal wall motion. Right Ventricle: Right ventricle is mildly dilated. Normal systolic function. No significant valvular abnormalities. Troponin: Stress Test: Cardiac Cath: IMPRESSION : chest infilterate.>>possible pne./ hypoxia. Abd. Pain. 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 CHOLECYSTITIS, RENAL STONE, HYPONATREMIA, NA-=129. > RESTRICT FLUIDS. PLAN : Chest pain>>>Stress test normal., ef=65 %NO CP TODAY, Noncardiac cp. CARDIAC STATUS IS STABLE. Essential hypertension, benign>>>Meds Hyperlipidemia>>Meds>>Meds Troponin=0.012. ekg no change, SHELTON HERMAN M.D., FACC 06/15/2022 Images from the original note were not included. Hospitalist Progress Note 06/15/[id number]: Please page me ([phone]) for patient care issues. [phone]: Please page [facility] Hospitalist for any issues. Subjective: Admit Date: 06/07/2022 PCP: Demetrius Fenton Room#: 232-06/232-06 A Interval History: No overnight issues. Patient seen more awake on exam today. Alert and oriented x2 to location and month. States that pain is much improved today. However, patient respiratory status seemed worse today. Still falls asleep during the examination. Denies chest pain, sob, nausea, vomiting, diarrhea, constipation, fevers, or chills. Adult diet Dysphagia - Pureed; Moderately Thick (Honey); Low Fat (less than or equal to 50 gm/day) @[id number]@ 24HR INTAKE/OUTPUT: Intake/Output Summary (Last 24 hours) at 06/15/2022 0725 Last data filed at 06/15/2022 0700 Gross per 24 hour Intake -- Output 2180 ml Net -2180 ml Past Medical History: Past Medical History: Diagnosis Date Anxiety Ataxia Bipolar disorder (HCC) Chronic pain Constipation Contracture, right hand Depression Dysphagia Dysphagia Dysphonia Edema GERD (gastroesophageal reflux disease) Headache Hemiplegia (CMS/HCC) (HCC) Hyperlipidemia Hypertension Insomnia Muscle weakness Neuropathy TBI (traumatic brain injury) LABS: CBC: Recent Labs 06/13/2232806/14/226 06/15/22 0401 WBC 14.4* 18.7* 19.0* RBC 3.86* 3.98* 4.03* HGB 11.9* 12.2* 12.2* HCT 35.5* 36.3* 37.1* MCV 92.0 91.1 92.1 RDW 13.3 13.6 13.8 PLT 135* 166 186 BMP: Recent Labs 06/13/2232806/14/22 0226 06/15/22 0401 NA 129* 127* 128* K 4.0 4.2 4.2 CL 100 98 95* CO2 29 32* 33* BUN 8* 8* 10 CREATININE 0.76 0.71 0.81 GLUCOSE 189* 171* 175* CALCIUM 7.3* 7.9* 8.0* ANIONGAP 0* -3* 0* LIVER PROFILE: Recent Labs 06/13/22 0329 06/14/22 0226 06/15/22 0401 AST 35 41 29 ALT 26 36 26 BILITOT 0.8 0.7 0.6 ALKPHOS 77 106 111 PROT 5.6* 5.9* 6.0* PT/INR: No results for input(s): PROTIME, INR in the last 72 hours. CARDIAC ENZYMES: No results for input(s): TROPONINI in the last 72 hours. Procalcitonin: Lab Results Component Value Date PROCAL 0.47 (H) 06/14/2022 COVID-19 PCR: No results for input(s): COVID19 in the last 72 hours. Objective: Vitals: BP (!) 166/95 (BP Location: Left arm, Patient Position: Lying) Pulse 109 Temp 36.8 C (98.2 F) (Oral) Resp 17 Ht 6' 2 (1.88 m) Wt 253 lb (115 kg) SpO2 95% BMI 32.48 kg/m Pulse Ox: SpO2 Av.5 % Min: 94 % Max: 97 % Supplemental O2: O2 Flow Rate (L/min): 3 L/min General appearance: No apparent distress, appears stated age and cooperative with exam HEENT: Normal cephalic, atraumatic without obvious deformity. Pupils equal, round, and reactive to light. Extra ocular muscles intact. Conjunctivae/corneas clear. Neck: Supple, with full range of motion. No jugular venous distention. Trachea midline. No lymphadenopathy. Respiratory: Scattered rhonchi throughout with diminished breath sounds at the left lower lobe Cardiovascular: Regular rate and rhythm with normal S1/S2 without murmurs, rubs or gallops. Abdomen: Soft, non-tender, non-distended with normal bowel sounds. No rebound or guarding. Musculoskeletal: No clubbing, cyanosis or edema bilaterally. Full range of motion without deformity, +2 peripheral pulses in all extremities. Skin: Skin color, texture, turgor normal. No rashes or lesions. Neurologic: Neurovascularly intact without any focal sensory/motor deficits. Cranial nerves: II-XII intact, grossly non-focal. Medications: DOBUTamine, 10 mcg/kg/min, Last Rate: Stopped (06/09/22 1402) ARIPiprazole, 5 mg, Oral, Daily aspirin, 81 mg, Oral, Daily divalproex sprinkle, 250 mg, Oral, 2 times per day enoxaparin, 40 mg, SubCUTAneous, Daily ertapenem, 1,000 mg, IntraVENous, q24h influenza vaccine split quadravalent, 0.5 mL, IntraMUSCular, Once melatonin, 10 mg, Oral, Nightly memantine, 10 mg, Oral, BID miconazole, , Topical, BID senna-docusate sodium, 2 tablet, Oral, Daily venlafaxine, 75 mg, Oral, BID Radiology Results (last 21 days) Procedure Component Value Units Date/Time CT abdomen pelvis w contrast [[id number]] Collected: 06/13/222204 Order Status: Completed Updated: 06/13/222220 Narrative: Patient Name: MOISES MADRID : 1960 [facility]#: [id number] Exam Date/Time: 06/13/2022 17:39 Procedure: CT ABDOMEN PELVIS W CONTRAST Ordering Provider: EDGAR JONATHAN Reason For Exam: Abdominal pain, acute, nonlocalized CT ABDOMEN AND PELVIS WITH CONTRAST CLINICAL INDICATION: Abdominal pain, acute, nonlocalized TECHNIQUE: CT scan of the abdomen and pelvis, with IV contrast. Multiplanar reformations. 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 COMPARISON: June,. FINDINGS: Abdomen: Visualized lung bases again show partially confluent opacities in the right middle and bilateral lower lobes, with some air bronchograms mildly increased. Very small bilateral pleural effusions, about the same. Interval placement of percutaneous pigtail catheter extending into focal fluid noted previously along the greater curvature the stomach, which is considerably decreased and nearly resolved. Pancreas again prominent and shows diffuse peripancreatic fat stranding or infiltration, mildly increased. Fluid attenuation again seen adjacent to pancreatic tail, extending caudally along the anterior pararenal space and paracolic gutter not appreciably changed. No radiopaque gallstones. Liver shows diffusely decreased attenuation without focal abnormality. Spleen without significant abnormality. Punctate calcification and tiny cyst again noted in the right kidney without significant hydronephrosis. Left kidney grossly unremarkable. Adrenal glands without significant abnormality. Pelvis: Bowel grossly unremarkable. Appendix within normal limits. Very small amount of nonspecific, free fluid noted along right paracolic gutter and in the pelvis. No discrete abscess. Abdominal aorta is nonaneurysmal. Buckley catheter noted in decompressed urinary bladder. Axial skeleton grossly intact, with degenerative change again noted in the lumbar spine. Diffuse subcutaneous edema in the trunk and pelvis, new in the interval. Impression: 1. Interval placement of percutaneous pigtail catheter and near complete resolution of focal fluid noted previously along the greater curvature of the stomach. 2. Findings compatible with pancreatitis, mildly increased in the interval. 3. Hepatic steatosis, and nonobstructing right renal calcification. 4. Very small amount of nonspecific free fluid in the abdomen and pelvis, similar to comparison. Anasarca, new in the interval. 5. Mild atelectasis or infiltrates in right middle and bilateral lower lobes, mildly increased in the interval. Report Dictated on Electronically Signed By: Merrick Lopez Electronically Signed Date/Time: 06/13/2022 10:20 PM EST US abdomen limited [[id number]] Collected: 06/13/22823 Order Status: Completed Updated: 06/13/22829 Narrative: Patient Name: MOISES MADRID : 1960 Exam Date/Time: 06/13/2022 07:20 Procedure: US ABDOMEN LIMITED Ordering Provider: CORTEZ JONATHAN Reason For Exam: PANCREATITIS - ACUTE ULTRASOUND ABDOMEN RUQ CLINICAL HISTORY:PANCREATITIS - ACUTE COMPARISON: CT 06/10/2022 TECHNIQUE: Grayscale sonographic images were obtained of the right upper quadrant. Color Doppler was utilized. FINDINGS: Portions the exam are limited by overlying bowel gas, patient immobility and body habitus, as well as due to indwelling epigastric drainage catheter. Liver: Left lobe is not well visualized. Right hepatic parenchymal echotexture is slightly heterogeneous and increased. No discrete lesions on submitted images. Biliary system: No sonographic evidence of intrahepatic biliary ductal dilatation. The common bile duct is normal in caliber and measures 2 mm. Gallbladder: Gallbladder appears well-distended. Several small stones are present. No pericholecystic fluid or gallbladder wall thickening. There was a negative sonographic Cole's sign reported by the registered vascular technologist (rvt). Pancreas: Obscured by bowel gas. Right Kidney: Largely obscured by bowel gas. Additional findings: Trace perihepatic ascites. Impression: 1. Technically limited evaluation. In particular the left hepatic lobe, pancreas, and right kidney are not well visualized or evaluated. 2. Cholelithiasis without sonographic evidence of acute cholecystitis. 3. No biliary ductal dilatation Report Dictated on Electronically Signed By: Cheko Chapa Electronically Signed Date/Time: 06/13/2022 8:29 AM EST XR chest 1 view [[id number]] Collected: 06/12/22 1254 Order Status: Completed Updated: 06/12/22 1257 Narrative: Patient Name: MOISES MADRID : 1960 [facility]#: [id number] Exam Date/Time: 06/12/2022 12:43 Procedure: XR CHEST 1 VIEW Ordering Provider: EDGAR JONATHAN Reason For Exam: DYSPNEA EXAMINATION: XR chest AP. EXAM DATE & TIME: 06/12/2022 12:43 PM EST INDICATION: DYSPNEA ADDITIONAL INFORMATION: 61-year-old male with dyspnea presents for evaluation COMPARISON: Chest radiographs dated 06/10/2022, 06/07/2022 and 07/27/2013 TECHNIQUE: Frontal view of the chest was obtained. FINDINGS: Lines/support devices: Cardiac leads and defibrillator pads project over the chest, somewhat limiting evaluation. Cardiomediastinal silhouette: Obscured. Lungs/pleura: There are low lung volumes. Bibasilar scarring/atelectasis is seen. Indistinctness of the costophrenic angles is noted. No evidence of pneumothorax. Osseous structures: Degenerative changes of the spine and shoulders are seen. No acute osseous abnormality is demonstrated. The bones are osteopenic. Other findings: None. Impression: Low lung volumes with bibasilar scarring/atelectasis and indistinctness of the costophrenic angles, suggestive of small bilateral pleural effusions. Report Dictated on Electronically Signed By: Asad Mccarthy Electronically Signed Date/Time: 06/12/2022 12:56 PM EST XR foot 3+ views right [[id number]] Collected: 06/12/22 1250 Order Status: Completed Updated: 06/12/22 125 Narrative: Patient Name: MOISES MADRID : 1960 Exam Date/Time: 06/12/2022 12:44 Procedure: XR FOOT 3+ VIEWS RIGHT Ordering Provider: EDGAR JONATHAN Reason For Exam: r/o OM RIGHT FOOT: CLINICAL INDICATION: Possible osteomyelitis. TECHNIQUE: AP, Lat, Oblique COMPARISON: 05/09/2011 FINDINGS: There is no evidence for fracture or dislocation. Degenerative changes in the midfoot and first MTP joint. Dense Achilles tendon calcifications again seen. Dorsal soft tissue swelling overlying the mid foot. No evidence of soft tissue gas, osseous erosive change or periostitis. Note that if there is persistent concern for osteomyelitis, MRI is a more sensitive means of evaluation. Report Dictated on Electronically Signed By: Ezra Guthrie Electronically Signed Date/Time: 06/12/2022 12:[address] guided abscess fluid collection drainage [[id number]] Collected: 06/10/22 160 Order Status: Completed Updated: 06/10/22 161 Narrative: Patient Name: MOISES MADRID : 1960 Exam Date/Time: 06/10/2022 14:50 Procedure: CT GUIDED ABSCESS FLUID COLLECTION DRAINAGE Ordering Provider: EDGAR JONATHAN Reason For Exam: PROCEDURE: Drainage catheter placement Procedural Personnel Attending physician(s): Jus Barlow Indication: Peripancreatic fluid collection Additional clinical history: None Complications: No immediate complications. Impression: Percutaneous placement of a 10 Prydeinig drainage catheter into peripancreatic fluid collection, yielding 150 mL of bloody fluid. __ PROCEDURE SUMMARY: - Intraperitoneal drainage catheter placement under CT guidance - Additional procedure(s): None PROCEDURE DETAILS: Pre-procedure Consent: Informed consent for the procedure including risks, benefits and alternatives was obtained and time-out was performed prior to the procedure. Preparation: The site was prepared and draped using maximal sterile barrier technique including cutaneous antisepsis. Anesthesia/sedation Moderate sedation was provided under my supervision with patient monitored by a trained radiology nurse. Total sedation time of 25 minutes. Drainage catheter placement The patient was positioned supine. Initial imaging was performed. Local anesthesia was administered. The fluid collection was accessed using an access needle followed by wire insertion and serial dilation and a drainage catheter was placed. Position of the drainage catheter within the fluid collection was confirmed. - Initial imaging findings: Peripancreatic fluid collection - Drainage catheter placed: 10 Prydeinig APD - External catheter securement: Non-absorbable suture and adhesive anchoring device - Post-drainage imaging findings: Drainage catheter in adequate position with pigtail in the most superior aspect of the fluid collection. Contrast Contrast agent: None Contrast volume (mL): [address] dose length product (mGy-cm): 811 Additional Details Additional description of procedure: None Equipment details: None Specimens removed: Aspirated fluid was sent for analysis. Estimated blood loss (mL): Less than 10 Report Dictated on Electronically Signed By: Jus Barlow Electronically Signed Date/Time: 06/10/2022 4:[address] abdomen pelvis wo IV contrast [[id number]] Collected: 06/10/22914 Order Status: Completed Updated: 06/10/22930 Narrative: Patient Name: MOISES MADRID : 1960 [facility]#: [id number] Exam Date/Time: 06/10/2022 08:50 Procedure: CT ABDOMEN PELVIS WO IV CONTRAST Ordering Provider: EDGAR JONATHAN Reason For Exam: Abdominal pain, acute, nonlocalized CT ABDOMEN AND PELVIS WITHOUT IV CONTRAST CLINICAL INDICATION: Acute abdominal pain, nonlocalized TECHNIQUE: Axial CT images through the through the abdomen and pelvis with 3 mm reconstruction without intravenous intravenous contrast media. Enteric contrast was not administered. Coronal and sagittal reconstructions included. 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 COMPARISON: None. FINDINGS: Examination is somewhat limited in evaluation of solid organs and vascular structures due to the lack of intravenous contrast. Additional limitations: Somewhat limited evaluation of the GI tract without enteric contrast. Mild motion and streak artifact limits evaluation to some extent Lung base: Trace to small pleural effusions with mild bibasilar atelectasis/pneumonia. Liver: Hepatic steatosis. Gallbladder/Biliary tree: Gallbladder is somewhat inconspicuous possibly due to the presence of sludge or less likely calculi.. No intra or extrahepatic biliary ductal dilatation Spleen: Within normal limits. Pancreas: Pancreas is heterogeneous with surrounding poorly defined and more confluent fluid particularly at the level of the pancreatic body and tail with extension along the anterior left pararenal space as well as into the lesser sac. Small pocket of loculated fluid along the greater curvature on series 3 image 46 measuring 5.0 x 3.6 cm with distal extension. Fluid demonstrates borderline complexity. Adrenals: No discrete mass or nodule detected. Kidneys/pelvic organs: No obstructive uropathy. Punctate nonobstructing calculus right kidney. Urinary bladder is collapsed limiting evaluation. Borderline prostamegaly. GI tract: A few prominent air distended loops of small bowel without evidence of mechanical obstruction. Normal appendix is identified. Mild to moderate amount retained colonic stool more so proximally. No colonic wall thickening or pericolonic stranding. . Peritoneal cavity/retroperitoneum: No pneumatosis or pneumoperitoneum. No bulky adenopathy. Small amount of lower abdominal/pelvic ascites which appears to be simple in complexity. Vasculature: Normal caliber abdominal aorta. Osseous structures/soft tissues: Degenerative spondylosis in the visualized spine with mild scoliotic curvature. Suspected developmental spinal canal narrowing. Tiny left greater than right fat-containing inguinal hernia without bowel involvement. Trace body wall edema. Gynecomastia Impression: 1. Acute pancreatitis with surrounding poorly defined and more confluent fluid particularly at the level of the pancreatic body and tail with extension along the anterior left pararenal space as well as into the lesser sac. Small pocket of loculated fluid along the greater curvature of the stomach measures 5.0 x 3.6 cm with distal extension. Fluid demonstrates borderline complexity. 2. Nonobstructing punctate right renal calculus. 3. Trace to small pleural effusions with mild bibasilar atelectasis/pneumonia. 4. Questionable trace gallbladder sludge/calculi. Report Dictated on Electronically Signed By: Cheko Chapa Electronically Signed Date/Time: 06/10/2022 9:30 AM EST XR chest 1 view [[id number]] Collected: 06/10/2244 Order Status: Completed Updated: 06/10/22850 Narrative: Patient Name: MOISES MADRID : 1960 Exam Date/Time: 06/10/2022 08:36 Procedure: XR CHEST 1 VIEW Ordering Provider: EDGAR JONATHAN Reason For Exam: DYSPNEA CHEST RADIOGRAPH CLINICAL INDICATION: Dyspnea TECHNIQUE: AP COMPARISON: 05/30/2022 chest radiograph FINDINGS: Cardiomediastinal: Cardiomediastinal silhouette is normal in size and configuration. Lungs: There are low lung volumes with bronchovascular crowding. Questionable retrocardiac opacity. No pleural effusion or pneumothorax. Osseous structures: No acute osseous abnormality. Impression: Questionable retrocardiac opacity, please correlate with clinical concern for developing pneumonia. Low lung volumes with bronchovascular crowding. Report Dictated on Electronically Signed By: Barry Castillo Electronically Signed Date/Time: 06/10/2022 8:50 AM EST XR chest 1 view [[id number]] Collected: 06/07/222325 Order Status: Completed Updated: 06/07/222327 Narrative: Patient Name: MOISES MADRID : 1960 [facility]#: [id number] Exam Date/Time: 06/07/2022 23:25 Procedure: XR CHEST 1 VIEW Ordering Provider: CASTELAN NICOLE Reason For Exam: chest pain CHEST - PORTABLE: CLINICAL INDICATION: Chest pain. . TECHNIQUE: Portable AP COMPARISON: 07/27/2013 Impression: FINDINGS/IMPRESSION: Limitations: Slightly limited by patient positioning Lines, tubes, and devices: None Cardiomediastinal silhouette: Heart size is within normal limits. Lungs/Pleura: Elevation of the right hemidiaphragm, similar to prior study. Borderline central pulmonary vascular congestion. No consolidation, sizable pleural effusions, or pneumothorax. Osseous structures: Degenerative spondylosis in the visualized spine. 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 Soft tissues: No soft tissue abnormality is detected. Report Dictated on Electronically Signed By: Cheko Chapa Electronically Signed Date/Time: 06/07/2022 11:27 PM EST Assessment Acute pancreatitis with peripancreatic abscess s/p percutaneous drain (3/3) Acute hypoxic respiratory insufficiency 2/2 questionable CAP EDWARDO Chest pain, ACS ruled out Right foot wounds - no active infection Hyperkalemia-resolved HTN HLD Hx of TBI, stroke and residual hemiplegia Chronic headaches Mood disorder Medical Decision Making -Patient presents to [facility] ED from [facility] on [facility] with complaints of chest pain. Symptoms started day before admission given a PPI at the facility with no relief. In the ED, vital signs were stable. Labs are consistent with a potassium of 6.0, BUN 41, Scr 1.38, troponin negative x1, Lipase 3500, WBC 10.4, COVID/flu/RSV negative, chest x-ray showed borderline central pulmonary vascular congestion. EKG sinus tachycardia with no acute ST or T wave changes.. Given that nitroglycerin and Nitropaste in the ER with resolution of symptoms. Admitted under hospitalist group in the HICU for further evaluation. Underwent stress test which was negative and echocardiogram shows an EF of 70%. Cardiology consulted and recommends medical management with no further intervention. Patient continued to develop abdominal pain and CT abdomen showed inflammation around the pancreas with loculated fluid collection 5 x 3.6 cm around the greater curvature of the stomach concerning for an abscess. General surgery consulted and recommended IR percutaneous drain which was done on 06/10. ID and GI consulted given high complexity and currently on empiric antibiotics. No acute surgical intervention recommended at this time. Patient subsequently developed hypoxia and chest x-ray shows questionable right retro- cardiac opacity which could be due to pneumonia. Discussed with Dr. Dickerson and advise changing Zosyn to Ertapenem therapy on 06/14. Obtain a chest x-ray this morning which looks volume overloaded with worsening infiltrates. We will obtain a respiratory culture and repeat pneumonia panel. Remains on ertapenem. Started on IV Lasix with repeat chest x-ray tomorrow. Will need to monitor sodium levels closely on the Lasix. Nephrology consulted for assistance -am labs, replace lytes prn -increase activity -DVT prophylaxis: [x] Lovenox [] Heparin [] SCDs [x] Encourage ambulation [] Already on Anticoagulation Anticipated Discharge - Date - 06/17 - Location - Skilled Facility - Pending the following - Specialist clearance Total time spent (which include face to face and non face to face encounters) : 50 minutes Toxic drug monitoring/narrow therapeutic index drug monitoring : # Drug name : Lovenox # Route administered : SubQ # Method of monitoring : CBC Extended Emergency Contact Information Primary Emergency Contact: Joslyn Hollins Relation: Other Asia Nelson MD Division of Hospitalist Medicine Inpatient Medical Services/[facility] [place]: Epic chat Speech-Language Pathology Facility/Department: [place] [address] DYSPHAGIA TREATMENT NAME: Moises Madrid : 1960 ADMISSION DATE: 06/07/2022 ADMITTING DIAGNOSIS: has Chest pain; Chest pain, unspecified type; Obesity, Class I, BMI 30-34.9; Hyperlipidemia; Essential hypertension, benign; Depression; Hemiplegia (CMS/HCC) (HCC); and 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 Allergies Allergen Reactions Hydralazine Unknown Sulfamethoxazole-Trimethoprim Unknown Temazepam Unknown Tramadol Unknown Clindamycin Rash Burn, rash Burn, rash Oxygen Level: O2 Device: Nasal cannula Liters of Oxygen: 3.5L Current Diet Level: Dietary Orders (From admission, onward) Start Ordered 06/13/22 1358 Supplement:Lunch, Dinner; Chocolate Magic Cup Until discontinued Question Answer Comment Frequency Lunch Frequency Dinner Select supplement: Chocolate Magic Cup 06/13/22 1357 06/13/22 1358 Supplement:Breakfast; Pro-Stat Modular Until discontinued Question Answer Comment Frequency Breakfast Select supplement: Pro-Stat Modular Comment mixed in mod thick cranberry juice 06/13/22 1400 06/13/22 1218 Adult diet Dysphagia - Pureed; Moderately Thick (Honey); Low Fat (less than or equal to 50 gm/day) Diet effective now Question Answer Comment Diet type Dysphagia - Pureed Fluid consistency Moderately Thick (Honey) GI restriction: Low Fat (less than or equal to 50 gm/day) 06/13/22 1218 Pain: RN managing patient pain, no current pain, however this is one of the worse pains he's ever experienced. S: Pt was woke easily. Agreeable to session. O: Assess tolerance of advanced textures. Strengthening. A: Pt without complaint of current diet. Eating fair and taking medications crushed in puree. Pt assesses with mildly thick liquids. With slightly larger drink. +coughing/gagging. Suspect overt s/s aspiration. Pt with suspected decreased airway protection. No overt deficits observed with moderately thick liquids. Suggest continue same. Pt may benefit from MBS, however looking for improved function prior to study as well as improved overall function and ability to feel better'. Pt did participate in airway closure exercises. With good effort. Recommended Diet and Intervention Diet Solids Recommendation: Dysphagia Pureed (Dysphagia I) Liquid Consistency Recommendation: Moderately Thick (Honey) Recommended Form of Meds: Crushed in puree as able Therapeutic Interventions: Diet tolerance monitoring Compensatory Swallowing Strategies Compensatory Swallowing Strategies : Small bites/sips, Total feed, Upright as possible for all oral intake, External pacing Treatment/Goals Encounter Problems Encounter Problems (Active) Swallowing Patient will tolerate recommended food and liquid consistencies without clinical signs and symptoms of aspirations (Progressing) Start: 06/11/22 Patient will participate in instrumental assessment of swallowing as appropriate (Not Addressed) Start: 06/11/22 P: continue dysphagia POC. Treatment Plan Requires CAM SPECIALIST Intervention: Yes Frequency/Duration: Frequency of Treatment: 3 days/wk for Duration of Treatment: 2 weeks Therapy Time CAM SPECIALIST Individual Minutes Time In: 1435 Time Out: 1457 Minutes: 22 ALISHA Canchola 06/14/2022 3:41 PM Images from the original note were not included. [facility] - Infectious Diseases Attending Progress Note Subjective: F/U for acute pancreatitis with peripancreatic abscess. S/p percutaneous drain catheter placement on 06/10/22, yielding 150 mL of bloody fluid, Cx -negative. A rept CT abdomen on 06/13 showed near complete resolution of focal fluid noted previously. He was found laying on bed, alert, c/o abdominal pain, weakness, decreased appetite, difficulty to speak clearly, weakness of right side of his body; appeared debilitated and ill. He had buckley catheter in place, and abdominal drain bag had purulent material. He has h/o TBI, stroke and residual hemiplegia. He was examined; notes, labs and imagings were reviewed, and treatment plan was discussed. Objective: Vitals: Patient Vitals for the past 24 hrs: BP Temp Temp src Pulse Resp SpO2 06/14/22 1109 (!) 155/91 -- -- 100 12 94 % 06/14/22 0700 -- 36.6 C (97.9 F) Oral -- -- -- 06/14/22 0613 (!) 157/97 36.7 C (98 F) Oral 98 16 95 % 06/14/22 0103 (!) 148/90 -- -- 100 16 93 % 06/14/22 0003 (!) 153/91 36.5 C (97.7 F) Oral 107 16 94 % 06/13/22 2303 (!) 153/91 -- -- 104 15 94 % 06/13/22 2203 (!) 150/95 -- -- (!) 111 15 93 % 06/13/222002 (!) 152/90 -- -- 109 25 95 % 06/13/22 1942 (!) 162/90 37.1 C (98.7 F) Oral 107 21 91 % 06/13/22 1540 -- 36.4 C (97.6 F) Oral 107 14 (!) 89 % 06/13/22 1505 (!) 147/90 -- -- 96 18 92 % Procal 0.47 Crp 195.0 Physical Exam Vitals and nursing note reviewed. Constitutional: General: He is not in acute distress. Appearance: He is well-developed. He is ill-appearing. Comments: Awake, appeared ill. Responds but difficulty to speak in full sentence. HENT: Head: Normocephalic and atraumatic. Right Ear: External ear normal. Left Ear: External ear normal. Nose: Nose normal. Mouth/Throat: Mouth: Mucous membranes are moist. Pharynx: Oropharynx is clear. No oropharyngeal exudate. Eyes: General: No scleral icterus. Extraocular Movements: Extraocular movements intact. Conjunctiva/sclera: Conjunctivae normal. Pupils: Pupils are equal, round, and reactive to light. Neck: Thyroid: No thyromegaly. Vascular: No JVD. Cardiovascular: Rate and Rhythm: Normal rate and regular rhythm. Pulses: Normal pulses. Heart sounds: Normal heart sounds. No murmur heard. No friction rub. No gallop. Pulmonary: Effort: No respiratory distress. Breath sounds: No stridor. Rhonchi present. No wheezing or rales. Comments: Short shallow breaths, moist breath sounds. Abdominal: General: There is no distension. Palpations: Abdomen is soft. There is no mass. Tenderness: There is abdominal distension and tenderness. There is no guarding or rebound. Hernia: No hernia is present. Comments: Abdominal drain site clean. Bloody material with purulence. diffuse tenderness . Genitourinary: Comments: Buckley with clear yellow urine. Musculoskeletal: General: No swelling or deformity. Normal range of motion. Cervical back: Normal range of motion and neck supple. Right lower leg: No edema. Left lower leg: No edema. Lymphadenopathy: Cervical: No cervical adenopathy. Skin: General: Skin is warm and dry. Coloration: Skin is not jaundiced. Findings: No rash. Comments: Tinea pedis. Erosion r 2nd toe. Neurological: General: No focal deficit present. Mental Status: Mental status is at baseline. Cranial Nerves: No cranial nerve deficit. Deep Tendon Reflexes: Reflexes normal. Comments: Weak RLE. Psychiatric: Mood and Affect: Mood normal. Behavior: Behavior normal. Labs: Recent Labs 06/12/2235706/13/2232806/14/22225 NA 129* 129* 127* K 4.1 4.0 4.2 CL 104 100 98 CO2 27 29 32* BUN 11 8* 8* CREATININE 0.84 0.76 0.71 GLUCOSE 140* 189* 171* CALCIUM 7.0* 7.3* 7.9* PROT 5.2* 5.6* 5.9* BILITOT 1.1 0.8 0.7 ALKPHOS 67 77 106 AST 29 35 41 ALT 17 26 36 PROCAL -- -- 0.47* Recent Labs 06/12/2235706/13/2232806/14/22225 WBC 11.9* 14.4* 18.7* HGB 11.8* 11.9* 12.2* HCT 35.4* 35.5* 36.3* PLT 121* 135* 166 LYMPHOPCT 13.0* 7.8* 10* MONOPCT 10.2* 9.8 3 BASOPCT 0.5 0.4 -- NEUTROABS 8.9* 11.6* -- Procal 0.47 Crp 195.0 Lipase 434 339 Micro: No results for input(s): COVID19 in the last 72 hours. Collected Updated Procedure Result Status 06/11/2022 1334 06/12/2022 0002 Pneumonia PCR Panel [[id number]] Sputum Final result Component Value Staphylococcus aureus Not Detected Streptococcus agalactiae Not Detected Streptococcus pneumoniae Not Detected Streptococcus pyogenes Not Detected Haemophilus influenzae Not Detected Moraxella catarrhalis Not Detected Acinetobacter baumannii complex Not Detected Enterobacter cloacae complex Not Detected Escherichia coli Not Detected Klebsiella (Enterobacter) aerogenes Not Detected Klebsiella oxytoca Not Detected Klebsiella pneumoniae Not Detected Proteus spp Not Detected Pseudomonas aeruginosa Not Detected Serratia marcescens Not Detected Chlamydia pneumoniae Not Detected Legionella pneumophila Not Detected Mycoplasma pneumoniae Not Detected Adenovirus Not Detected Coronavirus Not Detected Human Metapneumovirus Not Detected Human Rhinovirus/Enterovirus Not Detected Influenza A Not Detected Influenza B Not Detected Parainfluenza virus Not Detected Respiratory Syncytial Virus Not Detected 06/11/2022 1334 06/13/2022 0722 Respiratory culture [[id number]] Sputum Preliminary result Component Value Respiratory culture Rare respiratory vikram present. P Gram Stain Result Rare Epithelial cells per low power field P Moderate Polymorphonuclear leukocytes per low power field P No organisms seen P 06/10/2022 1433 06/13/2022 0924 Aerobic and Anaerobic Culture with Stain [[id number]] Abscess from Abdomen In process Component Value No component results 06/10/2022 1433 06/13/2022 0924 Culture, Aerobic Bacteria with Gram Stain [[id number]] Abscess from Abdomen Final result Component Value Culture No growth at 72 hours Gram Stain Result Rare Polymorphonuclear leukocytes per low power field No organisms seen Corrected result: Previously reported as Few Gram negative cocci (see Result History) on 06/11/2022 at 1209 EST 06/10/2022 1433 06/12/2022 1200 Anaerobic culture [[id number]] Abscess from Abdomen Preliminary result Component Value Culture No growth to date. Incubation continues P 06/10/2022 1243 06/10/2022 2302 Legionella and Streptococcus Urine Antigen [[id number]] Urine, Clean Catch Final result Component Value Legionella pneumophila Ag Not Detected Streptococcus pneumoniae Ag Not Detected 06/10/2022 1000 06/10/2022 1338 SARS-CoV-2 and Respiratory PCR Panel [[id number]] Swab from Nasopharynx Final result Component Value SARS-CoV-2 Not Detected Adenovirus Not Detected Coronavirus HKU1 Not Detected Coronavirus NL63 Not Detected Coronavirus 229E Not Detected Coronavirus OC43 Not Detected Human Metapneumovirus Not Detected Human Rhinovirus/Enterovirus Not Detected Influenza A Not Detected Influenza B Not Detected Parainfluenza 1 Not Detected Parainfluenza 2 Not Detected Parainfluenza 3 Not Detected Parainfluenza 4 Not Detected Respiratory Syncytial Virus Not Detected Bordetella pertussis Not Detected Bordetella parapertussis Not Detected Chlamydia pneumoniae Not Detected Mycoplasma pneumoniae Not Detected 06/10/2022 0958 06/13/2022 1401 Blood culture #1 - Suspected Infection [[id number]] Blood, Venous Preliminary result Component Value Blood Culture No growth at 72 hours P 06/10/2022 0958 06/13/2022 1401 Blood culture #2 - Suspected Infection [[id number]] Blood, Venous Preliminary result Component Value Blood Culture No growth at 72 hours P 06/07/2022 2345 06/08/2022 0035 SARS-CoV-2, Flu A/B, and RSV Combo [[id number]] Swab from Nasopharynx Final result Component Value SARS-CoV-2 Not Detected Respiratory Syncytial Virus Not Detected Influenza A Not Detected Influenza B Not Detected Lines: PIV site ok Radiography/Echo/Other: Reviewed CT abdomen pelvis w contrast [[id number]] Collected: 06/13/222204 Order Status: Completed Updated: 06/13/222220 Narrative: Patient Name: MOISES MADRID : 1960 [facility]#: [id number] Exam Date/Time: 06/13/2022 17:39 Procedure: CT ABDOMEN PELVIS W CONTRAST Ordering Provider: EDGAR JONATHAN Reason For Exam: Abdominal pain, acute, nonlocalized CT ABDOMEN AND PELVIS WITH CONTRAST CLINICAL INDICATION: Abdominal pain, acute, nonlocalized TECHNIQUE: CT scan of the abdomen and pelvis, with IV contrast. Multiplanar reformations. 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 COMPARISON: June,. FINDINGS: Abdomen: Visualized lung bases again show partially confluent opacities in the right middle and bilateral lower lobes, with some air bronchograms mildly increased. Very small bilateral pleural effusions, about the same. Interval placement of percutaneous pigtail catheter extending into focal fluid noted previously along the greater curvature the stomach, which is considerably decreased and nearly resolved. Pancreas again prominent and shows diffuse peripancreatic fat stranding or infiltration, mildly increased. Fluid attenuation again seen adjacent to pancreatic tail, extending caudally along the anterior pararenal space and paracolic gutter not appreciably changed. No radiopaque gallstones. Liver shows diffusely decreased attenuation without focal abnormality. Spleen without significant abnormality. Punctate calcification and tiny cyst again noted in the right kidney without significant hydronephrosis. Left kidney grossly unremarkable. Adrenal glands without significant abnormality. Pelvis: Bowel grossly unremarkable. Appendix within normal limits. Very small amount of nonspecific, free fluid noted along right paracolic gutter and in the pelvis. No discrete abscess. Abdominal aorta is nonaneurysmal. Buckley catheter noted in decompressed urinary bladder. Axial skeleton grossly intact, with degenerative change again noted in the lumbar spine. Diffuse subcutaneous edema in the trunk and pelvis, new in the interval. Impression: 1. Interval placement of percutaneous pigtail catheter and near complete resolution of focal fluid noted previously along the greater curvature of the stomach. 2. Findings compatible with pancreatitis, mildly increased in the interval. 3. Hepatic steatosis, and nonobstructing right renal calcification. 4. Very small amount of nonspecific free fluid in the abdomen and pelvis, similar to comparison. Anasarca, new in the interval. 5. Mild atelectasis or infiltrates in right middle and bilateral lower lobes, mildly increased in the interval. Report Dictated on Electronically Signed By: Merrick Lopez Electronically Signed Date/Time: 06/13/2022 10:20 PM EST Procedure Component Value Units Date/Time US abdomen limited [[id number]] Collected: 06/13/22823 Order Status: Completed Updated: 06/13/22829 Narrative: Patient Name: MOISES MADRID : 1960 Exam Date/Time: 06/13/2022 07:20 Procedure: US ABDOMEN LIMITED Ordering Provider: CORTEZ JONATHAN Reason For Exam: PANCREATITIS - ACUTE ULTRASOUND ABDOMEN RUQ CLINICAL HISTORY:PANCREATITIS - ACUTE COMPARISON: CT 06/10/2022 TECHNIQUE: Grayscale sonographic images were obtained of the right upper quadrant. Color Doppler was utilized. FINDINGS: Portions the exam are limited by overlying bowel gas, patient immobility and body habitus, as well as due to indwelling epigastric drainage catheter. Liver: Left lobe is not well visualized. Right hepatic parenchymal echotexture is slightly heterogeneous and increased. No discrete lesions on submitted images. Biliary system: No sonographic evidence of intrahepatic biliary ductal dilatation. The common bile duct is normal in caliber and measures 2 mm. Gallbladder: Gallbladder appears well-distended. Several small stones are present. No pericholecystic fluid or gallbladder wall thickening. There was a negative sonographic Cole's sign reported by the registered vascular technologist (rvt). Pancreas: Obscured by bowel gas. Right Kidney: Largely obscured by bowel gas. Additional findings: Trace perihepatic ascites. Impression: 1. Technically limited evaluation. In particular the left hepatic lobe, pancreas, and right kidney are not well visualized or evaluated. 2. Cholelithiasis without sonographic evidence of acute cholecystitis. 3. No biliary ductal dilatation Report Dictated on Electronically Signed By: Cheko Chapa Electronically Signed Date/Time: 06/13/2022 8:29 AM EST XR chest 1 view [[id number]] Collected: 06/12/22 1254 Order Status: Completed Updated: 06/12/22 1257 Narrative: Patient Name: MOISES MADRID : 1960 [facility]#: [id number] Exam Date/Time: 06/12/2022 12:43 Procedure: XR CHEST 1 VIEW Ordering Provider: EDGAR JONATHAN Reason For Exam: DYSPNEA EXAMINATION: XR chest AP. EXAM DATE & TIME: 06/12/2022 12:43 PM EST INDICATION: DYSPNEA ADDITIONAL INFORMATION: 61-year-old male with dyspnea presents for evaluation COMPARISON: Chest radiographs dated 06/10/2022, 06/07/2022 and 07/27/2013 TECHNIQUE: Frontal view of the chest was obtained. FINDINGS: Lines/support devices: Cardiac leads and defibrillator pads project over the chest, somewhat limiting evaluation. Cardiomediastinal silhouette: Obscured. Lungs/pleura: There are low lung volumes. Bibasilar scarring/atelectasis is seen. Indistinctness of the costophrenic angles is noted. No evidence of pneumothorax. Osseous structures: Degenerative changes of the spine and shoulders are seen. No acute osseous abnormality is demonstrated. The bones are osteopenic. Other findings: None. Impression: Low lung volumes with bibasilar scarring/atelectasis and indistinctness of the costophrenic angles, suggestive of small bilateral pleural effusions. Report Dictated on Electronically Signed By: Asad Mccrathy Electronically Signed Date/Time: 06/12/2022 12:56 PM EST XR foot 3+ views right [[id number]] Collected: 06/12/22 1250 Order Status: Completed Updated: 06/12/221252 Narrative: Patient Name: MOISES MADRID : 1960 Exam Date/Time: 06/12/2022 12:44 Procedure: XR FOOT 3+ VIEWS RIGHT Ordering Provider: EDGAR JONATHAN Reason For Exam: r/o OM RIGHT FOOT: CLINICAL INDICATION: Possible osteomyelitis. TECHNIQUE: AP, Lat, Oblique COMPARISON: 05/09/2011 FINDINGS: There is no evidence for fracture or dislocation. Degenerative changes in the midfoot and first MTP joint. Dense Achilles tendon calcifications again seen. Dorsal soft tissue swelling overlying the mid foot. No evidence of soft tissue gas, osseous erosive change or periostitis. Note that if there is persistent concern for osteomyelitis, MRI is a more sensitive means of evaluation. Report Dictated on Electronically Signed By: Ezra Guthrie Electronically Signed Date/Time: 06/12/2022 12:[address] guided abscess fluid collection drainage [[id number]] Collected: 06/10/22 1607 Order Status: Completed Updated: 06/10/22 1610 Narrative: Patient Name: MOISES MADRID : 1960 Exam Date/Time: 06/10/2022 14:50 Procedure: CT GUIDED ABSCESS FLUID COLLECTION DRAINAGE Ordering Provider: EDGAR JONATHAN Reason For Exam: PROCEDURE: Drainage catheter placement Procedural Personnel Attending physician(s): Jus Barlow Indication: Peripancreatic fluid collection Additional clinical history: None Complications: No immediate complications. Impression: Percutaneous placement of a 10 Prydeinig drainage catheter into peripancreatic fluid collection, yielding 150 mL of bloody fluid. __ PROCEDURE SUMMARY: - Intraperitoneal drainage catheter placement under CT guidance - Additional procedure(s): None PROCEDURE DETAILS: Pre-procedure Consent: Informed consent for the procedure including risks, benefits and alternatives was obtained and time-out was performed prior to the procedure. Preparation: The site was prepared and draped using maximal sterile barrier technique including cutaneous antisepsis. Anesthesia/sedation Moderate sedation was provided under my supervision with patient monitored by a trained radiology nurse. Total sedation time of 25 minutes. Drainage catheter placement The patient was positioned supine. Initial imaging was performed. Local anesthesia was administered. The fluid collection was accessed using an access needle followed by wire insertion and serial dilation and a drainage catheter was placed. Position of the drainage catheter within the fluid collection was confirmed. - Initial imaging findings: Peripancreatic fluid collection - Drainage catheter placed: 10 Prydeinig APD - External catheter securement: Non-absorbable suture and adhesive anchoring device - Post-drainage imaging findings: Drainage catheter in adequate position with pigtail in the most superior aspect of the fluid collection. Contrast Contrast agent: None Contrast volume (mL): [address] dose length product (mGy-cm): 811 Additional Details Additional description of procedure: None Equipment details: None Specimens removed: Aspirated fluid was sent for analysis. Estimated blood loss (mL): Less than 10 Report Dictated on Electronically Signed By: Jus Barlow Electronically Signed Date/Time: 06/10/2022 4:[address] abdomen pelvis wo IV contrast [[id number]] Collected: 06/10/22914 Order Status: Completed Updated: 06/10/22930 Narrative: Patient Name: MOISES MADRID : 1960 Exam Date/Time: 06/10/2022 08:50 Procedure: CT ABDOMEN PELVIS WO IV CONTRAST Ordering Provider: EDGAR JONATHAN Reason For Exam: Abdominal pain, acute, nonlocalized CT ABDOMEN AND PELVIS WITHOUT IV CONTRAST CLINICAL INDICATION: Acute abdominal pain, nonlocalized TECHNIQUE: Axial CT images through the through the abdomen and pelvis with 3 mm reconstruction without intravenous intravenous contrast media. Enteric contrast was not administered. Coronal and sagittal reconstructions included. 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 COMPARISON: None. FINDINGS: Examination is somewhat limited in evaluation of solid organs and vascular structures due to the lack of intravenous contrast. Additional limitations: Somewhat limited evaluation of the GI tract without enteric contrast. Mild motion and streak artifact limits evaluation to some extent Lung base: Trace to small pleural effusions with mild bibasilar atelectasis/pneumonia. Liver: Hepatic steatosis. Gallbladder/Biliary tree: Gallbladder is somewhat inconspicuous possibly due to the presence of sludge or less likely calculi.. No intra or extrahepatic biliary ductal dilatation Spleen: Within normal limits. Pancreas: Pancreas is heterogeneous with surrounding poorly defined and more confluent fluid particularly at the level of the pancreatic body and tail with extension along the anterior left pararenal space as well as into the lesser sac. Small pocket of loculated fluid along the greater curvature on series 3 image 46 measuring 5.0 x 3.6 cm with distal extension. Fluid demonstrates borderline complexity. Adrenals: No discrete mass or nodule detected. Kidneys/pelvic organs: No obstructive uropathy. Punctate nonobstructing calculus right kidney. Urinary bladder is collapsed limiting evaluation. Borderline prostamegaly. GI tract: A few prominent air distended loops of small bowel without evidence of mechanical obstruction. Normal appendix is identified. Mild to moderate amount retained colonic stool more so proximally. No colonic wall thickening or pericolonic stranding. . Peritoneal cavity/retroperitoneum: No pneumatosis or pneumoperitoneum. No bulky adenopathy. Small amount of lower abdominal/pelvic ascites which appears to be simple in complexity. Vasculature: Normal caliber abdominal aorta. Osseous structures/soft tissues: Degenerative spondylosis in the visualized spine with mild scoliotic curvature. Suspected developmental spinal canal narrowing. Tiny left greater than right fat-containing inguinal hernia without bowel involvement. Trace body wall edema. Gynecomastia Impression: 1. Acute pancreatitis with surrounding poorly defined and more confluent fluid particularly at the level of the pancreatic body and tail with extension along the anterior left pararenal space as well as into the lesser sac. Small pocket of loculated fluid along the greater curvature of the stomach measures 5.0 x 3.6 cm with distal extension. Fluid demonstrates borderline complexity. 2. Nonobstructing punctate right renal calculus. 3. Trace to small pleural effusions with mild bibasilar atelectasis/pneumonia. 4. Questionable trace gallbladder sludge/calculi. Report Dictated on Electronically Signed By: Cheko Chapa Electronically Signed Date/Time: 06/10/2022 9:30 AM EST XR chest 1 view [[id number]] Collected: 06/10/2244 Order Status: Completed Updated: 06/10/22850 Narrative: Patient Name: MOISES MADRID : 1960 Exam Date/Time: 06/10/2022 08:36 Procedure: XR CHEST 1 VIEW Ordering Provider: EDGAR JONATHAN Reason For Exam: DYSPNEA CHEST RADIOGRAPH CLINICAL INDICATION: Dyspnea TECHNIQUE: AP COMPARISON: 05/30/2022 chest radiograph FINDINGS: Cardiomediastinal: Cardiomediastinal silhouette is normal in size and configuration. Lungs: There are low lung volumes with bronchovascular crowding. Questionable retrocardiac opacity. No pleural effusion or pneumothorax. Osseous structures: No acute osseous abnormality. Impression: Questionable retrocardiac opacity, please correlate with clinical concern for developing pneumonia. Low lung volumes with bronchovascular crowding. Report Dictated on Electronically Signed By: Barry Castillo Electronically Signed Date/Time: 06/10/2022 8:50 AM EST XR chest 1 view [[id number]] Collected: 06/07/222325 Order Status: Completed Updated: 06/07/222327 Narrative: Patient Name: MOISES MADRID : 1960 Exam Date/Time: 06/07/2022 23:25 Procedure: XR CHEST 1 VIEW Ordering Provider: CASTELAN NICOLE Reason For Exam: chest pain CHEST - PORTABLE: CLINICAL INDICATION: Chest pain. . TECHNIQUE: Portable AP COMPARISON: 07/27/2013 Impression: FINDINGS/IMPRESSION: Limitations: Slightly limited by patient positioning Lines, tubes, and devices: None Cardiomediastinal silhouette: Heart size is within normal limits. Lungs/Pleura: Elevation of the right hemidiaphragm, similar to prior study. Borderline central pulmonary vascular congestion. No consolidation, sizable pleural effusions, or pneumothorax. Osseous structures: Degenerative spondylosis in the visualized spine. 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 Soft tissues: No soft tissue abnormality is detected. Report Dictated on Workstation: [id number] Electronically Signed By: Cheko Chapa Electronically Signed Date/Time: 06/07/2022 11:27 PM EST Antimicrobials, Start/End Dates: Pip/tazo 06/10- Vanco 06/12 Ceftr 06/10 Azithro 06/10 Impression: Acute pancreatitis with peripancreatic abscess. S/p percutaneous drain catheter placement on 06/10/22. Follow lipase and inflammatory markers. Abdominal distension and pain. Worsening leukocytosis and thrombocytopenia. Follow. Lethargy and debility. H/o TBI, stroke and Rt hemiplegia. Plan: Pt sick due to acute pancreatitis with peripancreatic abscess, underwent percutaneous drain placement, Cxs -negative. Afebrile, hemodynamically ok. Pt with distended abdomen and worsening leukocytosis while on broad spectrum antimicrobial agent. However, a rept CT abdomen on 06/13 showed near complete resolution of focal fluid noted previously. Cultures unremarkable, which may indicate an inflammatory process only. Follow inflammatory markers after 48h on 06/16. Substitute ertapenem for pip/tazo for 5 days. Check valproic acid level in AM. Will follow. Total time 50 minutes on this day of encounter includes counseling, coordinating plan of care, record and documentation review before and after visit including documentation and time not explicitly included on EMR time stamp for accounting for open encounter. Images from the original note were not included. SUBJECTIVE: No events overnight. Patient denies abdominal pain. No fever/chills, nausea/vomiting. Tolerating modified diet. Medications @MEDCMED@ OBJECTIVE VITALS: BP (!) 155/91 Pulse 100 Temp 36.6 C (97.9 F) (Oral) Resp 12 Ht 6' 2 (1.88 m) Wt 253 lb (115 kg) SpO2 94% BMI 32.48 kg/m TEMPERATURE: Current - Temp: 36.6 C (97.9 F); Max - Temp Av.7 C (98 F) Min: 36.4 C (97.6 F) Max: 37.1 C (98.7 F) RESPIRATIONS RANGE: Resp Av.7 Min: 12 Max: 25 PULSE RANGE: Pulse Av.8 Min: 94 Max: 111 BLOOD PRESSURE RANGE: Systolic (24hrs), Av , Min:147 , Max:162 ; Diastolic (24hrs), Av, Min:90, Max:97 PULSE OXIMETRY RANGE: SpO2 Av.6 % Min: 89 % Max: 95 % 24HR INTAKE/OUTPUT: Intake/Output Summary (Last 24 hours) at 06/14/2022 1303 Last data filed at 06/14/2022 0600 Gross per 24 hour Intake -- Output 2330 ml Net -2330 ml GENERAL: Pleasant and NAD. HEENT: NCAT, PERRLA, EOMI, Scleral anicteric. Oropharhynx clear with no erythema or exudate. Neck supple, no cervical LAD or thyromegaly. CV: RRR, NL S1/S2, no murmurs. Distal pulses palpable and equal b/l. LUNGS: CTA b/l. Normal percussion and palpation. No W/R/R. ABD: + BS, soft, non-tender and non-distended. No hepatosplenomegaly. No mass felt. No rebound or guarding. +Perc drain in place and draining EXT: No C/C/E. No muscle atrophy. SKIN: No skin lesion or breakdown. NEURO: some confusion, CN II-XII grossly intact. No asterixis. Data Recent blood work, radiologic study and endoscopic study were reviewed with the patient. CBC: Recent Labs 06/12/22 0358 06/13/2232806/14/22225 WBC 11.9* 14.4* 18.7* HGB 11.8* 11.9* 12.2* HCT 35.4* 35.5* 36.3* PLT 121* 135* 166 HEPATIC: Recent Labs 06/13/2232806/14/22225 AST 35 41 ALT 26 36 BILITOT 0.8 0.7 ALKPHOS 77 106 LIPASE/AMYLASE: Recent Labs 06/12/22 0358 06/14/22 0226 LIPASE 339* 434* LACTATE: No lab exists for component: LACTA BNP: No results for input(s): BNP in the last 72 hours. INR: No results for input(s): INR in the last 72 hours. @RISRSLT@ @IMAGES@ ECG 12 lead SINUS TACHYCARDIA LEFT AXIS DEVIATION LATE PRECORDIAL R/S TRANSITION LEFT VENTRICULAR HYPERTROPHY Electronically Signed On 06-10-2022 9:55:05 EST by Dimple Wade ECG 12 lead SINUS ARRHYTHMIA No previous ECG available for comparison Electronically Signed On 06-07-2022 23:40:41 EST by Tresa HANKINS u/s: IMPRESSION: 1. Technically limited evaluation. In particular the left hepatic lobe, pancreas, and right kidney are not well visualized or evaluated. 2. Cholelithiasis without sonographic evidence of acute cholecystitis. 3. No biliary ductal dilatation CT abd/pelv 06-13-22: IMPRESSION: 1. Interval placement of percutaneous pigtail catheter and near complete resolution of focal fluid noted previously along the greater curvature of the stomach. 2. Findings compatible with pancreatitis, mildly increased in the interval. 3. Hepatic steatosis, and nonobstructing right renal calcification. 4. Very small amount of nonspecific free fluid in the abdomen and pelvis, similar to comparison. Anasarca, new in the interval. 5. Mild atelectasis or infiltrates in right middle and bilateral lower lobes, mildly increased in the interval. ASSESSMENT AND PLAN Hypertension Hyperlipidemia EDWARDO: resolved History of traumatic brain injury/stroke with residual hemiplegia ACS -Cardiology following Acute pancreatitis: CT scan showed: Acute pancreatitis with surrounding poorly defined and more confluent fluid particularly at the level of the pancreatic body and tail with extension along the anterior left pararenal space as well as into the lesser sac. Small pocket of loculated fluid along the greater curvature of the stomach measures 5.0 x 3.6 cm with distal extension. Fluid demonstrates borderline complexity. Labs 06/10/2022: Lipase 3501, Alkaline phosphatase 83, Total bilirubin 1.1, AST 63, ALT 18. CT-guided percutaneous drain was placed and continues to have output. Cultures are growing gram-negative cocci. Unclear etiology for this pancreatitis. Patient does not drink alcohol. Triglycerides were only 240. Could a new medication of been added? Labs do not show any signs of biliary obstruction although CT scan did show some questionable trace gallbladder sludge/calculi. -Supportive therapies per primary service (e.g. antiemetics and analgesics) -Infectious disease following -IV hydration -General surgery following -Monitor LFTs and electrolytes -diet as tolerated Patient is slowly improving. No GI interventions warranted. Continue therapies per primary service. The GI/Liver consult service will sign off. Please call if there are any questions/concerns, change of patient's GI condition, or if we can provide any further asistance. Thanks. Mani Cortez MD (Comment: Please note this report has been produced using speech recognition software and may contain errors related to that system including errors in grammar, punctuation, and spelling, as well as words and phrases that may be inappropriate. If there are any questions or concerns please feel free to contact the dictating provider for clarification.) Images from the original note were not included. [facility] Wound Care Progress Note Moises Madrid AGE: 61 y.o. GENDER: male : 1960 Subjective: HISTORY of PRESENT ILLNESS HPI Moises Madrid is a 61 y.o. male who presents for a wound follow up. History of Wound Context: patient admitted for chest pain , lives with family , admitted with skin wounds right lesser toes and posterior thighs present skin issues for over a month per patient. No pain over legs or toes, never had PVR done , ordered today , dressing orders in for BID skin irritation to post thighs and perineum , no reported wound care at home except barrier cream. He is currently in HICU for pancreatitis and ID/general surgery following for pancreatic abscess. Reports no appetite, +immobility , no cough. 06/08/22 PVR results: Right side findings: Resting JULES is 1.15. This is within the normal range. Left side findings: Resting JULES is 1.09. This is within the normal range. 06/11/22 Venous duplex result - negative for DVT rt/left LE PAST MEDICAL HISTORY Active Ambulatory Problems Diagnosis Date Noted Chest pain, unspecified type 06/08/2022 Resolved Ambulatory Problems Diagnosis Date Noted No Resolved Ambulatory Problems Past Medical History: Diagnosis Date Anxiety Ataxia Bipolar disorder (HCC) Chronic pain Constipation Contracture, right hand Depression Dysphagia Dysphagia Dysphonia Edema GERD (gastroesophageal reflux disease) Headache Hemiplegia (CMS/HCC) (HCC) Hyperlipidemia Hypertension Insomnia Muscle weakness Neuropathy TBI (traumatic brain injury) PAST SURGICAL HISTORY Past Surgical History: Procedure Laterality Date CRANIOTOMY FAMILY HISTORY No family history on file. SOCIAL HISTORY Social History Tobacco Use Smoking status: Never Smokeless tobacco: Never Vaping Use Vaping Use: Never used Substance Use Topics Alcohol use: Never Drug use: Never ALLERGIES Allergies Allergen Reactions Hydralazine Unknown Sulfamethoxazole-Trimethoprim Unknown Temazepam Unknown Tramadol Unknown Clindamycin Rash Burn, rash Burn, rash MEDICATIONS No current facility-administered medications on file prior to encounter. Current Outpatient Medications on File Prior to Encounter Medication Sig Dispense Refill cloNIDine (Catapres) 0.[address] 0.3 mg on the skin 1 (one) time per week. acetaminophen (Tylenol) 325 MG tablet Take 650 mg by mouth every 4 hours as needed for mild pain (1-3). albuterol (2.5 MG/3ML) 0.083% nebulizer solution Take by nebulization every 3-4 hours as needed for wheezing. ARIPiprazole (Abilify) 5 MG tablet Take 5 mg by mouth daily. aspirin 81 MG EC tablet Take 81 mg by mouth daily. atorvastatin (Lipitor) 40 MG tablet Take 40 mg by mouth Nightly. cholecalciferol (Vitamin D3) 1.25 MG (21144 UT) tablet Take by mouth 1 (one) time per week. clobetasol (Temovate) 0.05 % cream Apply topically 2 times daily. dextromethorphan 15 MG/5ML syrup Take 10 mL by mouth as needed for cough. divalproex (Depakote ER) 500 MG 24 hr tablet Take 500 mg by mouth Nightly. Docusate Sodium (DSS) 100 MG capsule Take 100 mg by mouth daily. famotidine (Pepcid) 20 MG tablet Take 20 mg by mouth every morning. famotidine (Pepcid) 40 MG tablet Take 40 mg by mouth in the morning. gabapentin (Neurontin) 100 MG capsule Take 200 mg by mouth 2 times daily. gabapentin (Neurontin) 300 MG capsule Take 300 mg by mouth Nightly. glucosamine-chondroitin 500-400 MG tablet Take 1 tablet by mouth in the morning and 1 tablet in the evening. guaiFENesin (Mucinex) 600 MG 12 hr tablet Take 1,200 mg by mouth 2 times daily. Do not crush, chew, or split. HYDROcodone-acetaminophen ([place]) 5-325 MG tablet Take 1 tablet by mouth every 6 hours as needed. ketoconazole (NIZOral) 2 % cream Apply topically 2 times daily. lisinopril 20 MG tablet Take 40 mg by mouth daily. melatonin 5 MG tablet Take 3 mg by mouth Nightly. memantine (Namenda) 10 MG tablet Take 10 mg by mouth 2 times daily. metoprolol tartrate (Lopressor) 25 MG tablet Take 25 mg by mouth 2 times daily. mineral oil-hydrophilic petrolatum (Aquaphor) ointment Apply topically if needed for dry skin. [place]-3 Fatty Acids (Fish Oil) 1000 MG capsule delayed-release Take 2,000 mg by mouth. potassium chloride CR (Klor-Con M20) 20 MEQ ER tablet Take 40 mEq by mouth daily. Do not crush or chew. spironolactone (Aldactone) 100 MG tablet Take 100 mg by mouth daily. tamsulosin (Flomax) 0.4 MG 24 hr capsule Take 0.4 mg by mouth daily. tiZANidine (Zanaflex) 2 MG tablet Take 4 mg by mouth every 12 hours as needed for muscle spasms. venlafaxine (Effexor) 75 MG tablet Take 75 mg by mouth 2 times daily. REVIEW OF SYSTEMS Pertinent items are noted in HPI. Objective: BP (!) 155/91 Pulse 100 Temp 36.6 C (97.9 F) (Oral) Resp 12 Ht 6' 2 (1.88 m) Wt 253 lb (115 kg) SpO2 94% BMI 32.48 kg/m PHYSICAL EXAM Constitutional: in no apparent distress, well developed and well nourished, in no respiratory distress and acyanotic, and cooperative SKIN : no rashes or significant lesions,right lesser toes - Improved - 2nd toe (2cm x1cm x0.1cm)_and 3rd toe (1.5cm x1cm x0.1cm ) closed scab, no drainage, surrounding skin intact . Abdominal skin folds moist and pink blanchable Right posterior thigh - Improved with dark pink blanchable tissues 10cm x7cm x0.1cm resolving dermatitis and pink tissues , no drainage . Surrounding skin fragile . Left post thigh and perineum - Improved - dark pink tissues, resolving rash skin damage . Pulmonary: Normal effort, no respiratory distress, no cyanosis Abdomen: soft, nontender, and nondistended, drain in place, scant sanguinous drainage venous stasis dermatitis noted 06/14/22 photo: 06/08/22 photo: 06/14/22 photo: 06/08/22 photo: LABS CBC: Lab Results Component Value Date WBC 18.7 (H) 06/14/2022 HGB 12.2 (L) 06/14/2022 HCT 36.3 (L) 06/14/2022 MCV 91.1 06/14/2022 PLT 166 06/14/2022 BMP: Lab Results Component Value Date NA 127 (L) 06/14/2022 K 4.2 06/14/2022 CL 98 06/14/2022 CO2 32 (H) 06/14/2022 BUN 8 (L) 06/14/2022 CREATININE 0.71 06/14/2022 PT/INR: No results found for: PROTIME, INR Prealbumin: No results found for: PREALBUMIN Albumin:No components found for: LABALBU Sed Rate:No results found for: SEDRATE Micro: No components found for: BC Assessment/Plan: Idiopathic chronic venous hypertension of right lower extremity with ulcer Right lesser toes - cleanse with antibacterial soap/water, leave HARI PVR ordered-completed - see 06/11/22 Vascular study results Venous insufficiency Elevate legs as much as possible Right posterior thigh Moisture associated skin damage from friction and other body fluids. - ET mix , xeroform and ABD pad. BID . Left post thigh and perineum - ET mix BID . Intertrigo, abdominal fold - miconazole powder BID Please follow up at [facility] wound care [place] after hospital discharge. Thank you for the consult! I personally obtained the castro and critical portions of the history and physical exam. I reviewed the labs, imaging studies, and electronic medical record. I reviewed the chart documentation and discussed the patient with treatment team members. I have edited the note to reflect my clinical findings and my assessment and plan. Please note, the time of this note does not reflect the time I saw this patient today, but the time of this documentaton. Portions of this note including HPI, ROS, impression/plan, and examination may have been copied forward from admission to today as to provide important historical information essential in contributing to medical decision making. Documentation has been reviewed and edited as necessary to support clinical decision making for today's visit and to reflect my own independent evaluation of this patient. Decision making for today's visit and to reflect my own independent evaluation of this patient. [facility] - Surgery [facility] Physicians Surgery Patient Name: Moises Madrid Date: 06/14/2022 Patient seen and examined by myself and I agree with SKY note below Patient resting in bed sleeping but does awaken easily and answers questions appropriately Abdominal pain present but improving Abdomen soft tenderness epigastric region minimal drain output Labs and imaging reviewed Assessment /Plan: Acute pancreatitis with peripancreatic sterile fluid collection status post percutaneous drain Continue current management per medicine and infectious disease Recommend continue drain in place he is starting p.o. diet No plans for surgery this hospitalization Surgery will continue to follow Patient counseled on risks,benefits, and alternatives of treatement plan at length. Patient states an understanding and willingness to proceed with plan. I personally supervised my SKY and/or resident in the evaluation and management of Moises Madrid in the development of a treatment plan for this patient. I personally interviewed the patient and performed an individual physical examination. In addition, I discussed the patient's condition and treatment options with them. I have also reviewed and agree with the past medical, family and social history and care plan unless otherwise noted. All of the patient's questions were answered. This case represents moderate level care including chart review, care coordination and face to face encounter was spent discussing/counseling the patient regarding the care plan for this patient. The patient was seen and examined independently and relevant data reviewed by myself. A full chart review was performed. Remigio Napier MD [facility] General Surgery 2:38 PM 06/14/2022 GENERAL SURGERY Progress Note PATIENT NAME: Moises Mardid TODAY'S DATE: 06/14/2022 SUBJECTIVE: Patient seen this morning resting in bed. He denies current abdominal pain, nausea/vomiting, fever/chills. He states that he has not eaten much both due to poor appetite and poor taste of food. Patient notes continued, however improved, shortness of breath and chest pain. Pain controlled Yes Other Complaints No Flatus/BM/or Ostomy function Yes OBJECTIVE: VITALS: BP (!) 157/97 (BP Location: Left arm, Patient Position: Lying) Pulse 98 Temp 36.7 C (98 F) (Oral) Resp 16 Ht 6' 2 (1.88 m) Wt 253 lb (115 kg) SpO2 95% BMI 32.48 kg/m INTAKE/OUTPUT: I/O last 3 completed shifts: In: 1350 (11.8 mL/kg) [P.O.:1100; I.V.:250 (2.2 mL/kg)] Out: 3370 (29.4 mL/kg) [Urine:3300 (0.8 mL/kg/hr); Drains:70] Weight: 114.8 kg No intake/output data recorded. REVIEW OF SYSTEMS: Pertinent positives and negatives as per interval history section PHYSICAL EXAM: CONSTITUTIONAL: A&O x 3, LUNGS: Resp effort easy and unlabored, breath sounds normal CARDIOVASCULAR: RRR ABDOMEN: soft, nondistended, nontender, peritoneal signs absent, accordion drain in place with ~10 ml dark red output in bag MUSCULOSKELETAL: Normal range of motion NEUROLOGIC: Level of Alertness: alert PSYCHIATRIC: Speech is normal SKIN: Warm, dry, and intact Data: CBC: Recent Labs 06/12/2235706/13/2232806/14/22225 WBC 11.9* 14.4* 18.7* HGB 11.8* 11.9* 12.2* HCT 35.4* 35.5* 36.3* PLT 121* 135* 166 BMP: Recent Labs 06/12/2235706/13/2232806/14/22225 NA 129* 129* 127* K 4.1 4.0 4.2 CL 104 100 98 CO2 27 29 32* BUN 11 8* 8* CREATININE 0.84 0.76 0.71 GLUCOSE 140* 189* 171* Hepatic: Recent Labs 06/12/2235706/13/22328 06/14/22 0226 AST 29 35 41 ALT 17 26 36 BILITOT 1.1 0.8 0.7 ALKPHOS 67 77 106 ASSESSMENT AND PLAN: 61 y/o M with an infected acute peripancreatic fluid collection s/p CT guided drain placement 06/10/22 - WBC increased to 18.7- Monitor leukocytosis - US abdomen with cholelithiasis without evidence of acute cholecystitis - Drain culture: Gram + cocci initially then addended by lab with no organisms seen- Continue drain mgmt- may be able to remove in coming day - IV antibiotics - ID following- antibiotic management per them - Continue diet as tolerated - Medical mgmt per primary team - Psych following for major depression and suicidal ideation- psych meds restarted - Cardiology following Disposition: Patient with no abdominal pain today, continued drainage in bag. No surgical intervention planned at present, needs medical optimization prior to considering laparoscopic cholecystectomy. Continue diet as tolerated. Will continue to follow. Patient counseled on risks, benefits, and alternatives of treatment plan today. Patient states an understanding and willingness to proceed with plan. GERTRUDE Rowell Images from the original note were not included. Hospitalist Progress Note 06/14/[phone]: Please page me ([phone]) for patient care issues. [phone]: Please page [facility] Hospitalist for any issues. Subjective: Admit Date: 06/07/2022 PCP: Demetrius Fenton Room#: 232-06/[id number] A Interval History: No overnight issues. Patient sleepy on this am. Alert to location only and not to month or year. Given Dilaudid and oxycodone this am for pain. Denies chest pain, sob, nausea, vomiting, diarrhea, constipation, fevers, or chills. Adult diet Dysphagia - Pureed; Moderately Thick (Honey); Low Fat (less than or equal to 50 gm/day) @[id number]@ 24HR INTAKE/OUTPUT: Intake/Output Summary (Last 24 hours) at 06/14/2022 0708 Last data filed at 06/14/2022 0600 Gross per 24 hour Intake 500 ml Output 2330 ml Net -1830 ml Past Medical History: Past Medical History: Diagnosis Date Anxiety Ataxia Bipolar disorder (HCC) Chronic pain Constipation Contracture, right hand Depression Dysphagia Dysphagia Dysphonia Edema GERD (gastroesophageal reflux disease) Headache Hemiplegia (CMS/HCC) (HCC) Hyperlipidemia Hypertension Insomnia Muscle weakness Neuropathy TBI (traumatic brain injury) LABS: CBC: Recent Labs 06/12/2235706/13/2232806/14/22225 WBC 11.9* 14.4* 18.7* RBC 3.82* 3.86* 3.98* HGB 11.8* 11.9* 12.2* HCT 35.4* 35.5* 36.3* MCV 92.8 92.0 91.1 RDW 13.8 13.3 13.6 PLT 121* 135* 166 BMP: Recent Labs 06/12/2235706/13/2232806/14/22225 NA 129* 129* 127* K 4.1 4.0 4.2 CL 104 100 98 CO2 27 29 32* BUN 11 8* 8* CREATININE 0.84 0.76 0.71 GLUCOSE 140* 189* 171* CALCIUM 7.0* 7.3* 7.9* ANIONGAP -3* 0* -3* LIVER PROFILE: Recent Labs 06/12/2235706/13/2232806/14/22225 AST 29 35 41 ALT 17 26 36 BILITOT 1.1 0.8 0.7 ALKPHOS 67 77 106 PROT 5.2* 5.6* 5.9* PT/INR: No results for input(s): PROTIME, INR in the last 72 hours. CARDIAC ENZYMES: No results for input(s): TROPONINI in the last 72 hours. Procalcitonin: No results found for: PROCAL COVID-19 PCR: No results for input(s): COVID19 in the last 72 hours. Objective: Vitals: BP (!) 157/97 (BP Location: Left arm, Patient Position: Lying) Pulse 98 Temp 36.7 C (98 F) (Oral) Resp 16 Ht 6' 2 (1.88 m) Wt 253 lb (115 kg) SpO2 95% BMI 32.48 kg/m Pulse Ox: SpO2 Av.3 % Min: 89 % Max: 95 % Supplemental O2: O2 Flow Rate (L/min): 3 L/min General appearance: No apparent distress, appears stated age and cooperative with exam HEENT: Normal cephalic, atraumatic without obvious deformity. Pupils equal, round, and reactive to light. Extra ocular muscles intact. Conjunctivae/corneas clear. Neck: Supple, with full range of motion. No jugular venous distention. Trachea midline. No lymphadenopathy. Respiratory: Normal respiratory effort. Clear to auscultation, bilaterally without Rales/Wheezes/Rhonchi. Cardiovascular: Regular rate and rhythm with normal S1/S2 without murmurs, rubs or gallops. Abdomen: Soft, non-tender, non-distended with normal bowel sounds. No rebound or guarding. Musculoskeletal: No clubbing, cyanosis or edema bilaterally. Full range of motion without deformity, +2 peripheral pulses in all extremities. Skin: Skin color, texture, turgor normal. No rashes or lesions. Neurologic: Neurovascularly intact without any focal sensory/motor deficits. Cranial nerves: II-XII intact, grossly non-focal. Medications: DOBUTamine, 10 mcg/kg/min, Last Rate: Stopped (06/09/22 1402) ARIPiprazole, 5 mg, Oral, Daily aspirin, 81 mg, Oral, Daily divalproex sprinkle, 250 mg, Oral, 2 times per day enoxaparin, 40 mg, SubCUTAneous, Daily influenza vaccine split quadravalent, 0.5 mL, IntraMUSCular, Once melatonin, 10 mg, Oral, Nightly memantine, 10 mg, Oral, BID miconazole, , Topical, BID piperacillin-tazobactam, 4,500 mg, IntraVENous, q6h senna-docusate sodium, 2 tablet, Oral, Daily venlafaxine, 75 mg, Oral, BID Radiology Results (last 21 days) Procedure Component Value Units Date/Time CT abdomen pelvis w contrast [[id number]] Collected: 06/13/222204 Order Status: Completed Updated: 06/13/222220 Narrative: Patient Name: MOISES MADRID : 1960 [facility]#: [id number] Exam Date/Time: 06/13/2022 17:39 Procedure: CT ABDOMEN PELVIS W CONTRAST Ordering Provider: EDGAR JONATHAN Reason For Exam: Abdominal pain, acute, nonlocalized CT ABDOMEN AND PELVIS WITH CONTRAST CLINICAL INDICATION: Abdominal pain, acute, nonlocalized TECHNIQUE: CT scan of the abdomen and pelvis, with IV contrast. Multiplanar reformations. 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 COMPARISON: June,. FINDINGS: Abdomen: Visualized lung bases again show partially confluent opacities in the right middle and bilateral lower lobes, with some air bronchograms mildly increased. Very small bilateral pleural effusions, about the same. Interval placement of percutaneous pigtail catheter extending into focal fluid noted previously along the greater curvature the stomach, which is considerably decreased and nearly resolved. Pancreas again prominent and shows diffuse peripancreatic fat stranding or infiltration, mildly increased. Fluid attenuation again seen adjacent to pancreatic tail, extending caudally along the anterior pararenal space and paracolic gutter not appreciably changed. No radiopaque gallstones. Liver shows diffusely decreased attenuation without focal abnormality. Spleen without significant abnormality. Punctate calcification and tiny cyst again noted in the right kidney without significant hydronephrosis. Left kidney grossly unremarkable. Adrenal glands without significant abnormality. Pelvis: Bowel grossly unremarkable. Appendix within normal limits. Very small amount of nonspecific, free fluid noted along right paracolic gutter and in the pelvis. No discrete abscess. Abdominal aorta is nonaneurysmal. Buckley catheter noted in decompressed urinary bladder. Axial skeleton grossly intact, with degenerative change again noted in the lumbar spine. Diffuse subcutaneous edema in the trunk and pelvis, new in the interval. Impression: 1. Interval placement of percutaneous pigtail catheter and near complete resolution of focal fluid noted previously along the greater curvature of the stomach. 2. Findings compatible with pancreatitis, mildly increased in the interval. 3. Hepatic steatosis, and nonobstructing right renal calcification. 4. Very small amount of nonspecific free fluid in the abdomen and pelvis, similar to comparison. Anasarca, new in the interval. 5. Mild atelectasis or infiltrates in right middle and bilateral lower lobes, mildly increased in the interval. Report Dictated on Electronically Signed By: Merrick Lopez Electronically Signed Date/Time: 06/13/2022 10:20 PM EST abdomen limited [[id number]] Collected: 06/13/22823 Order Status: Completed Updated: 06/13/22829 Narrative: Patient Name: MOISES MADRID : 1960 Exam Date/Time: 06/13/2022 07:20 Procedure: US ABDOMEN LIMITED Ordering Provider: CORTEZ JONATHAN Reason For Exam: PANCREATITIS - ACUTE ULTRASOUND ABDOMEN RUQ CLINICAL HISTORY:PANCREATITIS - ACUTE COMPARISON: CT 06/10/2022 TECHNIQUE: Grayscale sonographic images were obtained of the right upper quadrant. Color Doppler was utilized. FINDINGS: Portions the exam are limited by overlying bowel gas, patient immobility and body habitus, as well as due to indwelling epigastric drainage catheter. Liver: Left lobe is not well visualized. Right hepatic parenchymal echotexture is slightly heterogeneous and increased. No discrete lesions on submitted images. Biliary system: No sonographic evidence of intrahepatic biliary ductal dilatation. The common bile duct is normal in caliber and measures 2 mm. Gallbladder: Gallbladder appears well-distended. Several small stones are present. No pericholecystic fluid or gallbladder wall thickening. There was a negative sonographic Cole's sign reported by the registered vascular technologist (rvt). Pancreas: Obscured by bowel gas. Right Kidney: Largely obscured by bowel gas. Additional findings: Trace perihepatic ascites. Impression: 1. Technically limited evaluation. In particular the left hepatic lobe, pancreas, and right kidney are not well visualized or evaluated. 2. Cholelithiasis without sonographic evidence of acute cholecystitis. 3. No biliary ductal dilatation Report Dictated on Electronically Signed By: Cheko Chapa Electronically Signed Date/Time: 06/13/2022 8:29 AM EST XR chest 1 view [[id number]] Collected: 06/12/22 1254 Order Status: Completed Updated: 06/12/22 1257 Narrative: Patient Name: OMISES MADRID : 1960 Exam Date/Time: 06/12/2022 12:43 Procedure: XR CHEST 1 VIEW Ordering Provider: EDGAR JONATHAN Reason For Exam: DYSPNEA EXAMINATION: XR chest AP. EXAM DATE & TIME: 06/12/2022 12:43 PM EST INDICATION: DYSPNEA ADDITIONAL INFORMATION: 61-year-old male with dyspnea presents for evaluation COMPARISON: Chest radiographs dated 06/10/2022, 06/07/2022 and 07/27/2013 TECHNIQUE: Frontal view of the chest was obtained. FINDINGS: Lines/support devices: Cardiac leads and defibrillator pads project over the chest, somewhat limiting evaluation. Cardiomediastinal silhouette: Obscured. Lungs/pleura: There are low lung volumes. Bibasilar scarring/atelectasis is seen. Indistinctness of the costophrenic angles is noted. No evidence of pneumothorax. Osseous structures: Degenerative changes of the spine and shoulders are seen. No acute osseous abnormality is demonstrated. The bones are osteopenic. Other findings: None. Impression: Low lung volumes with bibasilar scarring/atelectasis and indistinctness of the costophrenic angles, suggestive of small bilateral pleural effusions. Report Dictated on Electronically Signed By: Asad Mccarthy Electronically Signed Date/Time: 06/12/2022 12:56 PM EST XR foot 3+ views right [[id number]] Collected: 06/12/22 125 Order Status: Completed Updated: 06/12/221252 Narrative: Patient Name: MOISES MADRID : 1960 [facility]#: [id number] Exam Date/Time: 06/12/2022 12:44 Procedure: XR FOOT 3+ VIEWS RIGHT Ordering Provider: EDGAR JONATHAN Reason For Exam: r/o OM RIGHT FOOT: CLINICAL INDICATION: Possible osteomyelitis. TECHNIQUE: AP, Lat, Oblique COMPARISON: 05/09/2011 FINDINGS: There is no evidence for fracture or dislocation. Degenerative changes in the midfoot and first MTP joint. Dense Achilles tendon calcifications again seen. Dorsal soft tissue swelling overlying the mid foot. No evidence of soft tissue gas, osseous erosive change or periostitis. Note that if there is persistent concern for osteomyelitis, MRI is a more sensitive means of evaluation. Report Dictated on Electronically Signed By: Ezra Guthrie Electronically Signed Date/Time: 06/12/2022 12:[address] guided abscess fluid collection drainage [[id number]] Collected: 06/10/22 1607 Order Status: Completed Updated: 06/10/22 1610 Narrative: Patient Name: MOISES MADRID : 1960 [facility]#: [id number] Exam Date/Time: 06/10/2022 14:50 Procedure: CT GUIDED ABSCESS FLUID COLLECTION DRAINAGE Ordering Provider: EDGAR JONATHAN Reason For Exam: PROCEDURE: Drainage catheter placement Procedural Personnel Attending physician(s): Jus Barlow Indication: Peripancreatic fluid collection Additional clinical history: None Complications: No immediate complications. Impression: Percutaneous placement of a 10 Prydeinig drainage catheter into peripancreatic fluid collection, yielding 150 mL of bloody fluid. __ PROCEDURE SUMMARY: - Intraperitoneal drainage catheter placement under CT guidance - Additional procedure(s): None PROCEDURE DETAILS: Pre-procedure Consent: Informed consent for the procedure including risks, benefits and alternatives was obtained and time-out was performed prior to the procedure. Preparation: The site was prepared and draped using maximal sterile barrier technique including cutaneous antisepsis. Anesthesia/sedation Moderate sedation was provided under my supervision with patient monitored by a trained radiology nurse. Total sedation time of 25 minutes. Drainage catheter placement The patient was positioned supine. Initial imaging was performed. Local anesthesia was administered. The fluid collection was accessed using an access needle followed by wire insertion and serial dilation and a drainage catheter was placed. Position of the drainage catheter within the fluid collection was confirmed. - Initial imaging findings: Peripancreatic fluid collection - Drainage catheter placed: 10 Prydeinig APD - External catheter securement: Non-absorbable suture and adhesive anchoring device - Post-drainage imaging findings: Drainage catheter in adequate position with pigtail in the most superior aspect of the fluid collection. Contrast Contrast agent: None Contrast volume (mL): [address] dose length product (mGy-cm): 811 Additional Details Additional description of procedure: None Equipment details: None Specimens removed: Aspirated fluid was sent for analysis. Estimated blood loss (mL): Less than 10 Report Dictated on Electronically Signed By: Jus Barlow Electronically Signed Date/Time: 06/10/2022 4:[address] abdomen pelvis wo IV contrast [[id number]] Collected: 06/10/22914 Order Status: Completed Updated: 06/10/22930 Narrative: Patient Name: MOISES MADRID : 1960 [facility]#: [id number] Exam Date/Time: 06/10/2022 08:50 Procedure: CT ABDOMEN PELVIS WO IV CONTRAST Ordering Provider: EDGAR JONATHAN Reason For Exam: Abdominal pain, acute, nonlocalized CT ABDOMEN AND PELVIS WITHOUT IV CONTRAST CLINICAL INDICATION: Acute abdominal pain, nonlocalized TECHNIQUE: Axial CT images through the through the abdomen and pelvis with 3 mm reconstruction without intravenous intravenous contrast media. Enteric contrast was not administered. Coronal and sagittal reconstructions included. 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 COMPARISON: None. FINDINGS: Examination is somewhat limited in evaluation of solid organs and vascular structures due to the lack of intravenous contrast. Additional limitations: [facility] Miscellaneous Notes S/W, follow up Patient discharged back to [facility] Orders sent via Careport to facility. Transport set via [facility] at newspaper vendor provided report number. Patient aware of transport today. Chart reviewed. Patient remains in HICU for treatment of SIRS and acute pancreatitis with abscess s/p percutaneous drain. ID signed off. Drained removed 06/21. Surgery signed off. CAM SPECIALIST following for dysphagia. DC plan[place] [facility] [place] [facility] [place] when ready. SW following. Anticipate discharge today. Images from the original note were not included. Care Management Progress Note - Discharge Expected Date/Time: 06/21/[address] discharge order Complete med reconciliation Request transport Case mgmt discharge readiness CAM SPECIALIST discharge readiness Expected Discharge History Expected Date/Time Set By Reviewed At 06/21/2022 Yessenia Couch RN 06/20/2022 10:10 AM 06/16/2022 Yessenia Couch RN 06/15/2022 8:42 AM 06/11/2022 Eugenia Daniel RN 06/08/2022 10:50 AM 06/11/2022 Brenda Hagan 06/08/2022 3:44 AM 06/10/2022 Brenda Hagan 06/08/2022 1:55 AM 06/09/2022 Jennie Castelan PA-C 06/08/2022 1:19 AM Length of Stay (Days): 14 GMLOS: No GMLOS Documented Sodium today is 129. Per renal note patient is okay to discharge for sodium greater than 130. Salt tablets dc'd yesterday. Off antibiotics. Lipase level today remains elevated but is improving. Discharge plan return to [facility] when medically stable. Images from the original note were not included. Care Management Progress Note - Discharge Expected Date/Time: 06/21/[address] discharge order Complete med reconciliation Request transport Case mgmt discharge readiness Expected Discharge History Expected Date/Time Set By Reviewed At 06/21/2022 Yessenia Couch RN 06/20/2022 10:10 AM 06/16/2022 Yessenia Couch RN 06/15/2022 8:42 AM 06/11/2022 Eugenia Daniel RN 06/08/2022 10:50 AM 06/11/2022 Brenda Hagan 06/08/2022 3:44 AM 06/10/2022 Brenda Hagan 06/08/2022 1:55 AM 06/09/2022 Jennie Castelan PA-C 06/08/2022 1:19 AM Length of Stay (Days): 13 GMLOS: No GMLOS Documented Patient received 8 days of abx and ID discontinued current regimen on 06/17. MBS on 06/17-advised puree diet and mildly thick liquids Remains in HICU. salt tabs. CXR Demedex on 06/19,wound care, & surgery following. Drain removed by surgery today. ID-Nothing more from ID at this time. Will sign off. Nephrology-fluid restriction, May need tolvaptan tomorrow 06/22 if levels remain stagnant-Strict I&O. Pt can return to [facility] at discharge. He does not need insurance auth. He will need COVID screen & completed & signed EARNEST. S/W, follow up Updates sent to [facility]. Patient able to return anytime. S/W to follow for DC. Images from the original note were not included. Care Management Progress Note - Discharge Expected Date/Time: 06/21/[address] discharge order Complete med reconciliation Request transport Case mgmt discharge readiness CAM SPECIALIST discharge readiness Expected Discharge History Expected Date/Time Set By Reviewed At 06/21/2022 Yessenia Couch RN 06/20/2022 10:10 AM 06/16/2022 Yessenia Couch RN 06/15/2022 8:42 AM 06/11/2022 Eugenia Daniel RN 06/08/2022 10:50 AM 06/11/2022 Brenda Hagan 06/08/2022 3:44 AM 06/10/2022 Brenda Hagan 06/08/2022 1:55 AM 06/09/2022 Jennie Castelan PA-C 06/08/2022 1:19 AM Length of Stay (Days): 12 GMLOS: No GMLOS Documented Patient received 8 days of abx and ID discontinued current regimen on 06/17. MBS on 06/17-advised puree diet and mildly thick liquids Remains in HICU. salt tabs. CXR Demedex on 06/19, nephrology, ID,wound care, & surgery following.Continue drain mgmt- may be able to remove prior to discharge. T can return to [facility] at discharge. He does not need insurance auth. He will need COVID screen & completed & signed EARNEST. S/W, follow up Updates sent via Careport to [facility]. I did call [facility], they can accept the patient over the weekend if ready for DC, he is meterman there but can skill him under his insurance once he returns. Weekend Forms on chart. Patient given Narcan with moderate response. [place] and AO x 2 to location and year. Following commands. Patient last given Dilaudid on 3:50 AM 06/15, which is greater then 24 hours. Renal and liver function normal. However, may have a lasting effect in the setting of hx of TBI. Plan is to discontinue narcotics, check ammonia levels and remain on Hospitalist service for now. Discussed with nursing engineering team supervisor, bedside nurse and ICU team. Asia Nelson MD Division of Hospitalist Medicine Acute care [facility] 10:24 AM 06/16/22 S/W, follow up Updates sent via Careport to [facility]. Facility may be able to re-skill the patient. S/W to follow for DC. Length of Stay: 7 Anticipated date of discharge: 06/16/2022 Medical Plan of Care: ID-Follow inflammatory markers after 48h on 06/16. Substitute ertapenem for pip/tazo for 5 days. Check valproic acid level.General surgery & GI following. Continue drain mgmt- may be able to remove in coming day. DC Disposition[place] [facility] [facility] [place] Discharge Barriers: Medical stability. Surgery is recommending to continue drain . Per CT of abdomen 06/13 near complete resolution of focal fluid noted. GI has signed off. Remains on IV antibiotics. Sodium down 127. WBC 18.7 today. Discharge plan remains to return to [facility] when medically stable. S/W, follow up Patient is meterman at [facility] and can return anytime per [facility] communication. Patient today with increased abdominal pain, possible drain for peripancreatic fluid, likely infected. S/W to follow. S/W, follow up [facility] indicated patient is a meterman bed hold at the facility. I am clarifying if they need insurance approval or not. Patient with Stress Test today. S/W to follow. Discharge plan is return to [facility] when medically stable. Cardiology consult pending. Vascular us of lower extremities pending. Echo completed but no report in computer at this time. travelers' aid worker following for return to facility. S/W, follow up Patient in from [facility]. Referral placed in Careport inquiring on needs to return. S/W to follow. The patient is Moderately Stable - Low risk of patient condition declining or worsening The patient's goals for the shift include No skin breakdown The clinical goals for the shift include No skin breakdown Over the shift, the patient did not make progress toward the following goals. Barriers to progression include poor vasculature. Recommendations to address these barriers include Q2 turns. documented in this encounter [facility] 06-23-2022 Hospital course Narrative Discharge Summary Moises Madrid : 1960 ADMIT DATE: 06/07/2022 DISCHARGE DATE: 06/23/2022 PRIMARY CARE PHYSICIAN: Demetrius Fenton VISIT STATUS: Admission CODE STATUS: Full Code DISCHARGE DIAGNOSES: Principal Problem: Chest pain Active Problems: Obesity, Class I, BMI 30-34.9 Hyperlipidemia Essential hypertension, benign Depression Hemiplegia (CMS/HCC) (HCC) Idiopathic chronic venous hypertension of right lower extremity with ulcer (HCC) HOSPITAL COURSE: Moises is a 61 y.o. male with past medical history of TBI hemiplegia hypertension hyperlipidemia obesity BPH who presents with chief complaint of chest pain. Patient resides in a ch[facility] . Patient presents to the Ed due to chest pain . He states that it started at 1500 on 06/07 . He states that it was located in the substernal area . He describes the pain as someone grabbing his heart . He was given a PPI and had no relief . He states that he had shortness of breath no fever chills coughing nausea vomiting diarrhea . Patient had relief after ASA by EMS . In the Ed patient was afebrile Hr 77 RR 18 BP 107 /57 Lab data revealed sodium 134 potassium 6.0 BUN 41 Scr 1.38 Trop <0.012 EKG sinus arrhthymia WBC 10.4 HGB 14.6 PLT 159 COVID RSV FLU neg CXR borderline central pulmonary vascular congestion. The following is a summary of his diagnosis and management during his stay here at [facility]: # SIRS # Acute pancreatitis with peripancreatic abscess s/p percutaneous drain (06/10) - currently watching off antibx per recommendations of ID. ID has signed off. Perc drain removed at bedside per surgery on 06/21. No further surgical planning, general surgery signed off and states okay for discharge from surgical perspective. Lipase trending down. # Acute hypoxic respiratory insufficiency 2/2 coronavirus and pulmonary vascular congestion - resolved and now on RA. # Dysphagia - CAM SPECIALIST following. Recommended Minced and Moist (Dysphagia II), Liquid Consistency Mildly Thick ([place]) # Coronavirus positive - per ID, No evidence of active infection - the covid test done yesterday in F-up of a positive coronavirus on Resp PCR screen was NEGATIVE # Acute hyponatremia - nephrology managing, states okay for discharge once sodium above 130. # EDWARDO - resolved # Right foot wounds - no active infection. Wound care following. # Hyperkalemia-resolved # Chronic HTN # HLD # Hx of TBI, stroke and residual hemiplegia # Chronic headaches Physical exam: Respiratory: Normal respiratory effort. Clear to auscultation, bilaterally without Rales/Wheezes/Rhonchi. Cardiovascular: Regular rate and rhythm with normal S1/S2 without murmurs, rubs or gallops. Abdomen: Soft, non-tender, non-distended with normal bowel sounds. No rebound or guarding. SIGNIFICANT DIAGNOSTIC STUDIES: As above CONSULTANTS: Cardiology Critical care Nephrology Psych ID GI General surgery RECOMMENDED NEXT STEPS: DISCHARGE MEDICATIONS: Medication List START taking these medications divalproex sprinkle [address] capsule Commonly known as: Depakote Sprinkle Take 2 capsules (250 mg) by mouth in the morning and 2 capsules (250 mg) before bedtime. Replaces: divalproex 500 MG 24 hr tablet lidocaine 2 % gel Commonly known as: Uro-Jet Insert into the urethra 2 times daily as needed for mild pain (1-3). miconazole 2 % powder Commonly known as: Micotin Apply topically 2 times daily. polyethylene glycol (PEG) 3350 17 g packet Commonly known as: Miralax Take 17 g by mouth Daily as needed (constipation) for up to 3 days. senna-docusate sodium 8.6-50 MG tablet Commonly known as: Senokot-S Take 2 tablets by mouth daily. Do not start before June 24, 2022. Start taking on: June 24, 2022 CHANGE how you take these medications famotidine 20 MG tablet Commonly known as: Pepcid What changed: Another medication with the same name was removed. Continue taking this medication, and follow the directions you see here. guaiFENesin 600 MG 12 hr tablet Commonly known as: Mucinex Take 1 tablet (600 mg) by mouth 2 times daily. Do not crush, chew, or split. What changed: how much to take CONTINUE taking these medications acetaminophen 325 MG tablet Commonly known as: Tylenol albuterol (2.5 MG/3ML) 0.083% nebulizer solution ARIPiprazole 5 MG tablet Commonly known as: Abilify aspirin 81 MG EC tablet cholecalciferol 1.25 MG (87130 UT) tablet Commonly known as: Vitamin D3 melatonin 5 MG tablet memantine 10 MG tablet Commonly known as: Namenda metoprolol tartrate 25 MG tablet Commonly known as: Lopressor tamsulosin 0.4 MG 24 hr capsule Commonly known as: Flomax venlafaxine 75 MG tablet Commonly known as: Effexor STOP taking these medications atorvastatin 40 MG tablet Commonly known as: Lipitor clobetasol 0.05 % cream Commonly known as: Temovate cloNIDine 0.1 MG tablet Commonly known as: Catapres dextromethorphan 15 MG/5ML syrup divalproex 500 MG 24 hr tablet Commonly known as: Depakote ER Replaced by: divalproex sprinkle [address] capsule DSS 100 MG capsule Fish Oil 1000 MG capsule delayed-release gabapentin 100 MG capsule Commonly known as: Neurontin gabapentin 300 MG capsule Commonly known as: Neurontin glucosamine-chondroitin 500-400 MG tablet HYDROcodone-acetaminophen 5-325 MG tablet Commonly known as: [place] ketoconazole 2 % cream Commonly known as: NIZOral lisinopril 20 MG tablet mineral oil-hydrophilic petrolatum ointment potassium chloride CR 20 MEQ ER tablet Commonly known as: Klor-Con M20 spironolactone 100 MG tablet Commonly known as: Aldactone tiZANidine 2 MG tablet Commonly known as: Zanaflex Where to Get Your Medications Information about where to get these medications is not yet available Ask your nurse or doctor about these medications divalproex sprinkle [address] capsule guaiFENesin 600 MG 12 hr tablet lidocaine 2 % gel miconazole 2 % powder polyethylene glycol (PEG) 3350 17 g packet senna-docusate sodium 8.6-50 MG tablet DIET: Adult diet Dysphagia - Minced and Moist; Mildly Thick (Romney) ACTIVITY: Up with assist COMPLEXITY OF FOLLOW UP: [] Moderate Complexity: follow up within 7-14 calendar days (01305) [] Severe Complexity: follow up within 7 calendar days (53773) FOLLOW UP TESTING, PENDING RESULTS OR REFERRALS AT TRANSITIONAL CARE VISIT: [] Yes [] No PENDING STUDIES: DISPOSITION: Skilled Facility FACILITY/HOME CARE AGENCY NAME: [facility] Follow up with No follow-up provider specified. Follow up with pcp, surgery and cardiology and nephrology INSTRUCTIONS TO MA/SW: Please call patient on day after discharge (must document patient contacted within 2 business days of discharge). FOLLOW UP QUESTIONS FOR MA/SW: 1. Did you get medications filled and taking them as instructed from discharge? 2. Are you following your discharge instructions from your hospital stay? 3. Please confirm patient is scheduled for a follow up appointment within the above time frame. DISCHARGE TIME: was 36 minutes SIGNED: JOSEPH CANELA MD 06/23/2022, 2:03 PM documented in this encounter [facility] 06-17-2022 Procedure note Images from the original note were not included. 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 General Information Ordering Physician: Dr. Asia Nelson MD Radiologist: Dr. Juve Odonnell MD Date of Onset: 06/08/22 Type of Study: Initial MBS Results of Prior Study: No records in EPIC Current Diet Solid Consistency: Dysphagia Pureed (Dysphagia I) Current Diet Liquid Consistency: Moderately Thick (Honey) Patient complaints: Pt with c/o decreased appetite and abdominal discomfort. Concern with incresed coughing with po intake. Referring Diagnosis: Chest/pain Consistencies Administered: Dysphagia Soft and Bite-Sized (Dysphagia III), Dysphagia Pureed (Dysphagia I), Romney cup, Romney teaspoon, Honey cup, Honey teaspoon, Thin cup, Thin teaspoon, Thin straw Procedure Method: Consecutive swallow, Cup, Self feed, Feed by clinician, Spoon , Straw Patient Position: Lateral Patient was referred for a to assess the efficiency of his swallow function, rule out aspiration and make recommendations regarding safe dietary consistencies, effective compensatory strategies, and safe eating environment. Past Medical History: Diagnosis Date Anxiety Ataxia Bipolar disorder (HCC) Chronic pain Constipation Contracture, right hand Depression Dysphagia Dysphagia Dysphonia Edema GERD (gastroesophageal reflux disease) Headache Hemiplegia (CMS/HCC) (HCC) Hyperlipidemia Hypertension Insomnia Muscle weakness Neuropathy TBI (traumatic brain injury) Past Surgical History: Procedure Laterality Date CRANIOTOMY Subjective General Chart Reviewed: Yes Subjective Subjective: Pt indicated that he is feeling lousy. Behavior/Cognition Behavior/Cognition: Alert, Cooperative Assessment Oral Preparation / Oral Phase: Oral Phase Oral Phase: Pt demonstrates decreased bolus control with spillage to floor of mouth. Mastication is limited and prolonged. Spillage to the vallecula with all consistencies and to the level of piriform seen with nectar ( inconsistently) and straw drinks of thin liquids. Oral residuals after liquids, trace amounts intermittently spill to vallecua post swallow. Cracker residuals requires a second swallow to clear. Pharyngeal Phase: Pharyngeal Phase Pharyngeal: Deficits include reduced tongue base retraction and pharyngeal wall constriction resulting in coating of base of tongue, vellecular residuals (nectar, honey, pudding, thin) and pharyngeal wall residuals (especially later wall). Reswallows are effective to reduce same. Swallows are delayed and require cues at times. Transient pentration (not to cords, coating appros 40% vestibule) and clearing during initial cup drink of nectar. No further airway compromise observed with serial cup drinks of nectar thick liquids. (self administered). +Vocal cord penetration, flash undercoating, and trace aspiration of thin liquids observed with spoon, cup and straw sips. (>50% of trials). Piriform residuals at top UES from retrograde flow at UES. Compensatory Swallowing Strategies Attempted: Upright as possible for all oral intake, Small bites/sips, Alternate solids and liquids, Swallow 2 times per bite/sip Cervical Esophageal Phase: Upper Esophageal Screen Esophageal Screen: Impaired Upper Esophageal Screen Upper Esophageal Screen: Retrograde flow at UES with all consistencies. Impression Decreased bolus formation with spillage to floor of mouth and to vallecula prior to swallow. Vocal cord penetration with thin liquids via spoon, cup, straw with intermittent flash undercoating of cords and trace aspiration. Transient penetration during initial swallow of serial drink of nectar thick liquids. Oral and pharyngeal residuals clear with reswallows. Recommend continue puree diet and change to mildly thick liquids. Assist with meal for safety and to ensure swallow after each bite/drink. Cue reswallow every 2-5 bites/drinks. HOLD if not fully alert. Crush medications in puree. Trials of mechanical soft as appropriate. Plan & Recommendations Recommendations/Treatment: Recommendations/Treat Requires CAM SPECIALIST Intervention: Yes Recommendations: [place] Water Protocol Recommendations comment: Free water with small amount of ice chips. MAKE SURE FOR SWALLOW AFTER EVERY BITE D/C Recommendations: Ongoing speech therapy is recommended during this hospitalization Solid consistency: Dysphagia Pureed (Dysphagia I) Liquid consistency: Mildly Thick (Romney) Liquid administration via: Cup Medication administration: Meds in puree Supervision: Close Compensatory Swallowing Strategies : Assist feed, Small bites/sips, Upright as possible for all oral intake, Remain upright for 30-45 minutes after meals, Alternate solids and liquids (WATCH CLOSE for swallows) Postural Changes and/or Swallow Maneuvers: Upright 90 degrees, Upright 30 min after meal Therapeutic Interventions: Therapeutic PO trials with CAM SPECIALIST, Patient/Family education, Diet tolerance monitoring, [place] Water Protocol Education Given: swallowing strategies, diet recommendations Education Response: Needs reinforcement Prognosis: Prognosis Prognosis for safe diet advancement: fair Barriers to reach goals: cognitive deficits Barriers/Prognosis Comment: Cognition and delayed swallows Individuals consulted Consulted and agree with results and recommendations: Patient The patient was educated regarding the general results and recommendations of this evaluation. Encounter Problems Encounter Problems (Active) Swallowing Patient will tolerate recommended food and liquid consistencies without clinical signs and symptoms of aspirations (Not Progressing) Start: 06/11/22 Expected End: 06/25/22 Patient will participate in instrumental assessment of swallowing as appropriate (Not Addressed) Start: 06/11/22 Expected End: 06/25/22 Therapy Time CAM SPECIALIST Individual Minutes Time In: 1442 Time Out: 1513 Minutes: 31 ALISHA Canchola documented in this encounter [facility] 06-17-2022 Consult note Formatting of th is note might be different from the original. Vancomycin therapy has been discontinued by Dr. Dickerson on 06-17-22. Thank you for the consult. Pharmacy signing off for vancomycin dosing. Jessy Gresham RPh, Date: 06/17/22 Time: 10:15 AM Associated Order(s): IP CONSULT TO MEDICAL CRITICAL CARE Images from the original note were not included. Internal Medicine: MICU Initial Consult Name: Moises Madrid : 1960(61 y.o.) Date: 06/16/22 Attending: Dr. Hayward Subjective: Chief Complaint: Altered mental status/increased somnolence. HPI: Patient is a 61-year-old gentleman with a past medical history concerning for a remote traumatic brain injury with neurologic sequela of right hemiplegia, hyperlipidemia, depression, hypertension as well as obesity that was Admitted to the hospital earlier this month for evaluation of chest pain for which cardiac origin was appropriately ruled out. On an abdominal CT scan he was found to have pancreatitis with tremendous inflammation and abscess for which she underwent percutaneous abscess drainage and after evaluation by surgery he was not deemed not an eligible for surgical procedure. Patient also developed sepsis picture for which he has been treated with broad-spectrum antibiotics with the help of infectious disease medicine, work-up including blood cultures were negative except for a pneumonia PCR that showed rhinovirus. Currently treated with meropenem and vancomycin for severe sepsis due to persistent leukocytosis and fevers with tachycardia and at times high respiratory rate. For the past 2 days patient is becoming more somnolent and less responsive to external stimuli for which critical care medicine was consulted for evaluation. Patient also receiving Lasix for the treatment of possible pulmonary congestion on x-ray. CT abdomen repeat showing very small amount of free fluid in the abdomen with mildly increased pancreatitis in the interval compared to prior. Upon examination patient arousable upon verbal command and able to follow simple instructions, tracking with his eyes and these oriented to self and is retaining circumstantial and orientation to place as well. ABG was performed due to recent new oxygen requirement and showed a normal pH with a mildly decreased PO2 on 4 L of oxygen via nasal cannula. Patient tachycardic with adequate MAP. Past Medical History: Diagnosis Date Anxiety Ataxia Bipolar disorder (HCC) Chronic pain Constipation Contracture, right hand Depression Dysphagia Dysphagia Dysphonia Edema GERD (gastroesophageal reflux disease) Headache Hemiplegia (CMS/HCC) (HCC) Hyperlipidemia Hypertension Insomnia Muscle weakness Neuropathy TBI (traumatic brain injury) Past Surgical History: Procedure Laterality Date CRANIOTOMY No family history on file. Social History Socioeconomic History Marital status: Single Spouse name: Not on file Number of children: Not on file Years of education: Not on file Highest education level: Not on file Occupational History Not on file Tobacco Use Smoking status: Never Smokeless tobacco: Never Vaping Use Vaping Use: Never used Substance and Sexual Activity Alcohol use: Never Drug use: Never Sexual activity: Not on file Other Topics Concern Not on file Social History Narrative Not on file Social Determinants of Health Financial Resource Strain: Not on file Food Insecurity: Not on file Transportation Needs: No Transportation Needs Lack of Transportation (Medical): No Lack of Transportation (Non-Medical): No Physical Activity: Not on file Stress: Not on file Social Connections: Not on file Intimate Partner Violence: Not At Risk Fear of Current or Ex-Partner: No Emotionally Abused: No Physically Abused: No Sexually Abused: No Housing Stability: Unknown Unable to Pay for Housing in the Last Year: No Number of Places Lived in the Last Year: Not on file Unstable Housing in the Last Year: No Allergies Allergen Reactions Hydralazine Unknown Sulfamethoxazole-Trimethoprim Unknown Temazepam Unknown Tramadol Unknown Clindamycin Rash Burn, rash Burn, rash Prior to Admission medications Medication Sig Start Date End Date Taking? Authorizing Provider cloNIDine (Catapres) 0.[address] 0.3 mg on the skin 1 (one) time per week. Yes Historical Provider, acetaminophen (Tylenol) 325 MG tablet Take 650 mg by mouth every 4 hours as needed for mild pain (1-3). Historical Provider, albuterol (2.5 MG/3ML) 0.083% nebulizer solution Take by nebulization every 3-4 hours as needed for wheezing. Historical Provider, ARIPiprazole (Abilify) 5 MG tablet Take 5 mg by mouth daily. Historical Provider, aspirin 81 MG EC tablet Take 81 mg by mouth daily. Historical Provider, atorvastatin (Lipitor) 40 MG tablet Take 40 mg by mouth Nightly. Historical Provider, cholecalciferol (Vitamin D3) 1.25 MG (74715 UT) tablet Take by mouth 1 (one) time per week. Historical Provider, clobetasol (Temovate) 0.05 % cream Apply topically 2 times daily. Historical Provider, dextromethorphan 15 MG/5ML syrup Take 10 mL by mouth as needed for cough. Historical ProviderMD divalproex (Depakote ER) 500 MG 24 hr tablet Take 500 mg by mouth Nightly. Historical ProviderMD Docusate Sodium (DSS) 100 MG capsule Take 100 mg by mouth daily. Historical ProviderMD famotidine (Pepcid) 20 MG tablet Take 20 mg by mouth every morning. Historical ProviderMD famotidine (Pepcid) 40 MG tablet Take 40 mg by mouth in the morning. Historical ProviderMD gabapentin (Neurontin) 100 MG capsule Take 200 mg by mouth 2 times daily. Historical ProviderMD gabapentin (Neurontin) 300 MG capsule Take 300 mg by mouth Nightly. Historical ProviderMD glucosamine-chondroitin 500-400 MG tablet Take 1 tablet by mouth in the morning and 1 tablet in the evening. Historical ProviderMD guaiFENesin (Mucinex) 600 MG 12 hr tablet Take 1,200 mg by mouth 2 times daily. Do not crush, chew, or split. Historical ProviderMD HYDROcodone-acetaminophen ([place]) 5-325 MG tablet Take 1 tablet by mouth every 6 hours as needed. Historical ProviderMD ketoconazole (NIZOral) 2 % cream Apply topically 2 times daily. Historical ProviderMD lisinopril 20 MG tablet Take 40 mg by mouth daily. Historical ProviderMD melatonin 5 MG tablet Take 3 mg by mouth Nightly. Historical ProviderMD memantine (Namenda) 10 MG tablet Take 10 mg by mouth 2 times daily. Historical ProviderMD metoprolol tartrate (Lopressor) 25 MG tablet Take 25 mg by mouth 2 times daily. Historical ProviderMD mineral oil-hydrophilic petrolatum (Aquaphor) ointment Apply topically if needed for dry skin. Historical ProviderMD [place]-3 Fatty Acids (Fish Oil) 1000 MG capsule delayed-release Take 2,000 mg by mouth. Historical ProviderMD potassium chloride CR (Klor-Con M20) 20 MEQ ER tablet Take 40 mEq by mouth daily. Do not crush or chew. Historical ProviderMD spironolactone (Aldactone) 100 MG tablet Take 100 mg by mouth daily. Historical ProviderMD tamsulosin (Flomax) 0.4 MG 24 hr capsule Take 0.4 mg by mouth daily. Historical ProviderMD tiZANidine (Zanaflex) 2 MG tablet Take 4 mg by mouth every 12 hours as needed for muscle spasms. Historical ProviderMD venlafaxine (Effexor) 75 MG tablet Take 75 mg by mouth 2 times daily. Historical ProviderMD Objective: Oxygen Delivery: O2 Flow Rate (L/min): 4 L/min VITALS: BP (!) 138/91 (BP Location: Right arm, Patient Position: Lying) Pulse (!) 112 Temp 37.8 C (100.1 F) (Axillary) Resp 23 Ht 6' 2 (1.88 m) Wt 253 lb (115 kg) SpO2 95% BMI 32.48 kg/m CURRENT PULSE OXIMETRY: SpO2: 95 % Review of Systems Unable to perform ROS: Mental status change Constitutional: General Appearance []WDWN [x]Obese []Cachectic []Thin []Ill Eyes: Inspection of Pupils/Irises Pupils round and react: [x]Yes []No Sclera: []Icteric [x]Non-Icteric Inspection of Conjunctiva/Lids Conjunctiva: []Injected [x]Non-Injected Lids: [x]Intact []Lesion Present ENT/Mouth: External Inspection of ears/nose [x] Normal [] Scar/Lesion/Mass Inspection of teeth/lips/gums Dentition: [][place] Teeth []Dentures Lips/Gums: []Intact []Lesion Present Mucosa: [][place] []Moist []Dry Neck: External Appearance Overall Appearance: [x]Normal []Lesion/Mass/Crepitus Present Trachea midline: [x]Yes []No Thyroid []Normal []Enlarged []Tender []Mass []Absent Respiratory: Respiratory effort []Labored [x]Non-Labored [] Mechanically-Ventilated Auscultation []Clear [x]Crackles []Wheezes [][place] Cardiovascular: Auscultation Rate: [x]Regular []Irregular [x]Tachycardia []Bradycardia Rhythm: [x]Regular []Irregular Murmur: []Present [x]Absent Extremities Peripheral Edema: []Present [x]Absent Varicosities: []Present [x]Absent Gastrointestinal: Abdomen Palpation: [x]Soft []Firm [x]Tender []Non-Tender []Distended []Non-distended Mass: []Present [x]Absent Bowel Sounds: [x]Present []Absent Hernia: []Present []Absent Liver/Spleen: []Hepatosplenomegaly []Organomegaly Absent Musculoskeletal: Inspection of Digits and Nails Cyanosis: []Present []Absent Clubbing: []Present []Absent Ischemia: []Present []Absent Infection: []Present []Absent Extremities STRAUSS Equally: Except ([]RUE []RLE []LUE []LLE) Strength/Tone: Intact and Normal ([]RUE []RLE []LUE []LLE) Skin: Inspection [x]Normal []Rash []Lesion []Ulcer Palpation [x]Warm []Cool []Dry []Clammy []Nodules []Induration []Skin-tightening Cap-Refill: [] <3 sec [] >3 seconds (delayed) Neurologic: GCS EYE: 4 - Opens spontaneously GCS MOTOR: 6 - Obeys commands for movement GCS VERBAL: 4 - Confused Total GCS: 14 [x] Sensation grossly intact Psych: Mental Status Alert: [x]Yes [] No Oriented: []x0 []X1 [x]X2 []x3 Mood/Affect [x]Normal []Flat []Agitated []Depressed []Anxious []Calm []Sedated []NAD [facility] within last 24 hours- BMP: Recent Labs 06/14/2222506/15/2240006/16/22317 NA 127* 128* 132* K 4.2 4.2 4.0 CL 98 95* 95* CO2 32* 33* 32* BUN 8* 10 16 CREATININE 0.71 0.81 0.80 CALCIUM 7.9* 8.0* 8.1* MG 2.2 2.3 2.2 LFTs: Recent Labs 06/14/2222506/15/2240006/15/22 1343 06/16/22317 AST 41 29 -- 36 ALT 36 26 -- 25 PROT 5.9* 6.0* -- 6.2* ALBUMIN 2.9* 3.0* -- 3.1* BILITOT 0.7 0.6 -- 0.7 BILIRUBINU -- -- Negative -- ALKPHOS 106 111 -- 114 LIPASE 434* -- -- 718* Glucose: Recent Labs 06/14/2222506/15/2240006/16/22317 GLUCOSE 171* 175* 173* Procal: Recent Labs 06/14/2222506/16/22317 PROCAL 0.47* 0.46* CBC: Recent Labs 06/14/2222506/15/2240006/16/22317 WBC 18.7* 19.0* 19.9* HGB 12.2* 12.2* 12.6* HCT 36.3* 37.1* 37.8* PLT 166 186 229 MCV 91.1 92.1 92.0 RDW 13.6 13.8 13.6 ABGs: Recent Labs 03/09/23 0941 PHART 7.452* [id number] 42.3 PO2ART 67.7* [id number] 29.5* SO2ART 94.0* Lactic Acid: No results for input(s): LACTATE in the last 72 hours. INR: No results for input(s): INR in the last 72 hours. Cardiac Injury Profile: No results for input(s): CKTOTAL, CKMB, TROPONINI in the last 72 hours. Labs in Last 3 months: Lab Results Component Value Date TSH 3.216 06/07/2022 INR 1.1 06/10/2022 Microbiology- Urine Cx: No results found for: URINECX Blood Cx: Lab Results Component Value Date BLOODCX Blood culture incubation started 06/15/2022 Sputum Cx: Lab Results Component Value Date RESPCULT Few respiratory vikram present. 06/15/2022 Gram Stain: Lab Results Component Value Date LABGRAM (A) 06/15/2022 Moderate Polymorphonuclear leukocytes per low power field LABGRAM Moderate Epithelial cells per low power field (A) 06/15/2022 LABGRAM Rare Gram positive cocci (A) 06/15/2022 LABGRAM Rare Gram negative diplococci (A) 06/15/2022 PNA PCR: Lab Results Component Value Date HUMANMETAPNE Not Detected 06/15/2022 COVID19: No results found for: COVID19 Legionella Ag: Lab Results Component Value Date LEGIONELLAPN Not Detected 06/15/2022 Strep Ag: No results for input(s): STREPPNEUMO in the last 72 hours. Imaging- CT Abdomen 06/13/2022 IMPRESSION: 1. Interval placement of percutaneous pigtail catheter and near complete resolution of focal fluid noted previously along the greater curvature of the stomach. 2. Findings compatible with pancreatitis, mildly increased in the interval. 3. Hepatic steatosis, and nonobstructing right renal calcification. 4. Very small amount of nonspecific free fluid in the abdomen and pelvis, similar to comparison. Anasarca, new in the interval. 5. Mild atelectasis or infiltrates in right middle and bilateral lower lobes, mildly increased in the interval. CXR 06/15/2022 IMPRESSION: Prominence of the central pulmonary vasculature consistent with moderate congestive heart failure/fluid overload, slightly improved from the prior exam. Assessment and Plan: Principal Problem: Chest pain Active Problems: Obesity, Class I, BMI 30-34.9 Hyperlipidemia Essential hypertension, benign Depression Hemiplegia (CMS/HCC) (HCC) Idiopathic chronic venous hypertension of right lower extremity with ulcer (HCC) Assessment & Plan: Increased Somnolence likely 2/2 acute metabolic encephalopathy in the setting of Severe Sepsis due to Intra-abdominal pathology (Pancreatitis w/ abscess) Patient following commands and A&O x 2. Recent use of IV opiates (Naloxone given with moderate response). No hypercapnia in ABG. GCS 14. LFTs wnl. Na in the 130s. Consider CT scan of Head w/o contrast if condition continues to decline. Expect improvement of symptoms as Sepsis picture resolves. Ammonia levels can be checked (no clear hx of risky alcohol consumption). Kidney and liver function are adequate. Acute Hypoxic respiratory insufficiency in the setting of Viral Pneumonia and Pulmonary Congestion PNA PCR positive for Coronavirus/Rhinovirus. ABG reassuring with mild hypoxemia on 4 L O2 via NC. Currently receiving Lasix IV and per CXR appears to be improving lung vascular congestion in the interval. Patient appears able to maintain airway adequately at this time. Sepsis due to acute pancreatitis with peripancreatic abscess and viral PNA Infectious Disease following . Currently receiving Carbapenem + Vancomycin. Supportive care for viral portion of his picture. GI Prophylaxis: None DVT Prophylaxis: Lovenox 40 q 24hr - creatinine clearance >30 BMI Classification: Body mass index is 32.48 kg/m . obesity BMI 30-39.9 Disposition: Patient to continue under hospitalist service in the HICU. We will keep patient in our radar for peripheral monitoring and please do not hesitate to contact in case of worsening clinical picture / decompensation for further evaluation and management if needed. Jhon Bethea MD residential sales representative, PGY-III Pager: [phone] 06/16/2022 at 10:44 AM Associated attestation - Eva Hayward MD - 06/16/2022 12:04 PM EST I reviewed the Resident's note and agree with the documented findings and plan of care. I have personally performed a face to face diagnostic evaluation on this patient. Labs, imaging studies and electronic medical record have been reviewed by me. 61-year-old male with remote traumatic brain injury, right-sided hemiplegia hypertension lipidemia depression hypertension patient admitted to the hospital for acute necrotizing pancreatitis. ICU was consulted for altered mental status. Assessment Vitals: BP (!) 138/91 (BP Location: Right arm, Patient Position: Lying) Pulse (!) 112 Temp 37.2 C (99 F) Resp 23 Ht 6' 2 (1.88 m) Wt 253 lb (115 kg) SpO2 95% BMI 32.48 kg/m Pulse Ox: SpO2 Av.3 % Min: 95 % Max: 99 % Supplemental O2: O2 Flow Rate (L/min): 4 L/min General Appearance Sleepy but easily arousable follows simple commands HEENT - normocephalic, atraumatic, sclarea is anicteric, conjunctiva is pink, nasal mucosa is normal, no congestion, external ears are intact. Neck - Supple, trachea midline Lymph nodes- no cervical, clavicular, or posterior auricular lymphadenopathy Lungs mild to moderate tachypnea poor air entry bilaterally, no obvious wheezing or crackles, diminished breath sounds at the bases. Cardiovascular - Heart sounds are normal. Regular rate and rhythm, no murmur or rub Abdomen - Soft, nontender, nondistended, no masses or organomegaly Neurologic - right-sided weakness skin - No bruising or bleeding, good turgor, normal warmth Extremities - No clubbing, cyanosis, edema Peripheral pulses- radial and pedal pulses 2+ bilaterally CXR portable:Results for orders placed during the hospital encounter of 06/07/22 XR chest 1 view Narrative Patient Name: MOISES MADRID : 1960 [facility]#: [id number] Exam Date/Time: 06/16/2022 05:16 Procedure: XR CHEST 1 VIEW Ordering Provider: NELSON HASSAN Reason For Exam: DYSPNEA CLINICAL INFORMATION: Dyspnea Portable view of the chest at 0424 hours is provided and compared with a previous study dated 06/15/2022 FINDINGS: The heart size is normal. There are bibasilar infiltrates and effusions. There is prominence of the interstitium and central pulmonary vasculature. Impression Prominence of the central pulmonary vasculature consistent with moderate congestive heart failure/fluid overload, slightly improved from the prior exam. Report Dictated on Electronically Signed By: Loki Roberts Electronically Signed Date/Time: 06/16/2022 4:29 AM EST Dx/ Plan of care Acute encephalopathy probably metabolic could be related to sedation from hydromorphone as well. Patient did respond to Narcan and followed commands Acute hypoxic respiratory insufficiency, ABG noted no significant hypercapnia adequate oxygenation on 4 L supplemental oxygen Volume overload continue diuresis Severe sepsis due to acute pancreatitis with peripancreatic abscess management as per primary service Viral lower respiratory tract infection-supportive care Patient was discussed with IMS physician Dr. Nelson.. At this time patient does not qualify for ICU transfer with monitor for any worsening Oxygen supplement to maintain SpO2 92%. Wean FiO2 as patient tolerates Continue current BD therapy Steroids. CCT > 32 MIN Associated Order(s): IP CONSULT TO NEPHROLOGY [facility] Consult Note Reason for Consult: hyponatremia Requesting Physician: Asia Nelson MD Chief Complaint: Chief Complaint Patient presents with Chest Pain Pt states chest pain started around 3-4 oclock today, per EMS NH thought it was GERD so they gave him an antacid. Pt states pain did not get any better, pt describes pain as heaviness in the center of his chest. Pt states his pain was a 7/10 then squad gave baby ASA and pain is not a 5/10. History of Present Ilness: On initial presentation to the hospital, Moises is a 61 y.o. male with past medical history of TBI hemiplegia hypertension hyperlipidemia obesity BPH who presents with chief complaint listed above. Patient resides in a [facility]. Patient presents to the Ed due to chest pain. He states that it started at 1500 on 06/07. He states that it was located in the substernal area. He describes the pain as someone grabbing his heart. He was given a PPI and had no relief. He states that he had shortness of breath no fever chills coughing nausea vomiting diarrhea. Nephrology is asked to see the patient for hyponatremia. Patient currently has a sodium level of 128, previously 127. He has been admitted for 7 days to the ICU. Patient does not appear to have a good appetite as he only had taken a few bites from his tray. Buck[place] in place. No evidence of thiazides. No recent head injury. Past Medical History: Past Medical History: Diagnosis Date Anxiety Ataxia Bipolar disorder (HCC) Chronic pain Constipation Contracture, right hand Depression Dysphagia Dysphagia Dysphonia Edema GERD (gastroesophageal reflux disease) Headache Hemiplegia (CMS/HCC) (HCC) Hyperlipidemia Hypertension Insomnia Muscle weakness Neuropathy TBI (traumatic brain injury) Past Surgical History: Past Surgical History: Procedure Laterality Date CRANIOTOMY Home Medications: No current facility-administered medications on file prior to encounter. Current Outpatient Medications on File Prior to Encounter Medication Sig Dispense Refill cloNIDine (Catapres) 0.[address] 0.3 mg on the skin 1 (one) time per week. acetaminophen (Tylenol) 325 MG tablet Take 650 mg by mouth every 4 hours as needed for mild pain (1-3). albuterol (2.5 MG/3ML) 0.083% nebulizer solution Take by nebulization every 3-4 hours as needed for wheezing. ARIPiprazole (Abilify) 5 MG tablet Take 5 mg by mouth daily. aspirin 81 MG EC tablet Take 81 mg by mouth daily. atorvastatin (Lipitor) 40 MG tablet Take 40 mg by mouth Nightly. cholecalciferol (Vitamin D3) 1.25 MG (81880 UT) tablet Take by mouth 1 (one) time per week. clobetasol (Temovate) 0.05 % cream Apply topically 2 times daily. dextromethorphan 15 MG/5ML syrup Take 10 mL by mouth as needed for cough. divalproex (Depakote ER) 500 MG 24 hr tablet Take 500 mg by mouth Nightly. Docusate Sodium (DSS) 100 MG capsule Take 100 mg by mouth daily. famotidine (Pepcid) 20 MG tablet Take 20 mg by mouth every morning. famotidine (Pepcid) 40 MG tablet Take 40 mg by mouth in the morning. gabapentin (Neurontin) 100 MG capsule Take 200 mg by mouth 2 times daily. gabapentin (Neurontin) 300 MG capsule Take 300 mg by mouth Nightly. glucosamine-chondroitin 500-400 MG tablet Take 1 tablet by mouth in the morning and 1 tablet in the evening. guaiFENesin (Mucinex) 600 MG 12 hr tablet Take 1,200 mg by mouth 2 times daily. Do not crush, chew, or split. HYDROcodone-acetaminophen ([place]) 5-325 MG tablet Take 1 tablet by mouth every 6 hours as needed. ketoconazole (NIZOral) 2 % cream Apply topically 2 times daily. lisinopril 20 MG tablet Take 40 mg by mouth daily. melatonin 5 MG tablet Take 3 mg by mouth Nightly. memantine (Namenda) 10 MG tablet Take 10 mg by mouth 2 times daily. metoprolol tartrate (Lopressor) 25 MG tablet Take 25 mg by mouth 2 times daily. mineral oil-hydrophilic petrolatum (Aquaphor) ointment Apply topically if needed for dry skin. [place]-3 Fatty Acids (Fish Oil) 1000 MG capsule delayed-release Take 2,000 mg by mouth. potassium chloride CR (Klor-Con M20) 20 MEQ ER tablet Take 40 mEq by mouth daily. Do not crush or chew. spironolactone (Aldactone) 100 MG tablet Take 100 mg by mouth daily. tamsulosin (Flomax) 0.4 MG 24 hr capsule Take 0.4 mg by mouth daily. tiZANidine (Zanaflex) 2 MG tablet Take 4 mg by mouth every 12 hours as needed for muscle spasms. venlafaxine (Effexor) 75 MG tablet Take 75 mg by mouth 2 times daily. Allergies: Hydralazine, Sulfamethoxazole-trimethoprim, Temazepam, Tramadol, and Clindamycin Social History: Social History Socioeconomic History Marital status: Single Spouse name: Not on file Number of children: Not on file Years of education: Not on file Highest education level: Not on file Occupational History Not on file Tobacco Use Smoking status: Never Smokeless tobacco: Never Vaping Use Vaping Use: Never used Substance and Sexual Activity Alcohol use: Never Drug use: Never Sexual activity: Not on file Other Topics Concern Not on file Social History Narrative Not on file Social Determinants of Health Financial Resource Strain: Not on file Food Insecurity: Not on file Transportation Needs: No Transportation Needs Lack of Transportation (Medical): No Lack of Transportation (Non-Medical): No Physical Activity: Not on file Stress: Not on file Social Connections: Not on file Intimate Partner Violence: Not At Risk Fear of Current or Ex-Partner: No Emotionally Abused: No Physically Abused: No Sexually Abused: No Housing Stability: Unknown Unable to Pay for Housing in the Last Year: No Number of Places Lived in the Last Year: Not on file Unstable Housing in the Last Year: No Family History: No family history on file. Review of Systems: Pertinent positives stated above in HPI. All other systems were reviewed and were negative. Physical exam: Constitutional: Vitals: 06/14/22 1950 06/14/22 2240 06/15/22 0200 06/15/22 0403 BP: (!) 173/99 (!) 147/93 (!) 157/94 (!) 166/95 BP Location: Left arm Right arm Left arm Patient Position: Lying Lying Lying Pulse: (!) 121 108 101 109 Resp: 25 15 13 17 Temp: 37.9 C (100.3 F) 36.1 C (97 F) 36.8 C (98.2 F) TempSrc: Oral Oral Oral SpO2: 97% 97% 96% 95% Weight: Height: CURRENT TEMPERATURE: Temp: 36.8 C (98.2 F) MAXIMUM TEMPERATURE OVER 24HRS: Temp (24hrs), Av.9 C (98.4 F), Min:36.1 C (97 F), Max:37.9 C (100.3 F) CURRENT PULSE: Heart Rate: 109 CURRENT BLOOD PRESSURE: BP: (!) 166/95 24HR BLOOD PRESSURE RANGE: Systolic (24hrs), Av , Min:144 , Max:173 ; Diastolic (24hrs), Av, Min:89, Max:99 24HR INTAKE/OUTPUT: Intake/Output Summary (Last 24 hours) at 06/15/2022 0933 Last data filed at 06/15/2022 0700 Gross per 24 hour Intake -- Output 2180 ml Net -2180 ml Physical Exam: Appearance: NAD, awake, alert x2-3 but slow to respond, cooperative to exam Eyes: PERRLA, clear sclera ENT: hearing normal, no oral thrush, no erythema or exudate on hard or soft palate, tongue normal, dry mucus membranes Neck: supple, no JVD, no thyromegaly Respiratory: breathing unlabored, lungs CTA B/L anteriorly without w/r/r Cardiovascular: tachycardia+ without m/g/r, pedal pulses palpable Gastrointestinal: abdomen soft, non-tender, non-distended, normoactive bowel sounds. No masses or hernia. Musculoskeletal: normal muscle strength and tone, no edema of BLE Skin: warm and dry, no rash or wounds Neurologic: symmetric strength and sensation Psychiatric: alert and oriented to person/place/time, judgement and insight normal, memory intact, normal mood and range of affect Data: LIVER PROFILE: Recent Labs 06/13/2232806/14/2222506/15/221 AST 35 41 29 ALT 26 36 26 BILITOT 0.8 0.7 0.6 ALKPHOS 77 106 111 CBC: Recent Labs 06/13/2232806/14/2222506/15/22400 WBC 14.4* 18.7* 19.0* RBC 3.86* 3.98* 4.03* HGB 11.9* 12.2* 12.2* HCT 35.5* 36.3* 37.1* MCV 92.0 91.1 92.1 RDW 13.3 13.6 13.8 PLT 135* 166 186 BMP: Recent Labs 06/13/2232806/14/2222506/15/22400 NA 129* 127* 128* K 4.0 4.2 4.2 CL 100 98 95* CO2 29 32* 33* BUN 8* 8* 10 CREATININE 0.76 0.71 0.81 BNP: No results for input(s): BNP in the last 72 hours. ABGs: No results found for: PH, PCO2, PO2, HCO3, O2SAT Nephro Labs: No results for input(s): COLORU, CLARITYU, PH, PHUR, LABSPEC, GLUCOSEU, BLOODU, LEUKOCYTESUR, NITRITE, BILIRUBINUR, UROBILINOGEN, BACTERIA, AMORPHOUS, CASTS in the last 72 hours. No lab exists for component: PROTEINUA, KEYTONESU, RBCUA, WBCUA, CRYSTAL Imaging: reviewed Assessment: Acute hyponatremia 2/2 unclear ADH stimulus 2. Acute hypoxic respiratory insufficiency 3. Acute pancreatitis 4. Chronic headaches 5. Right foot wounds 6. HTN, essential Plan: -Na 128 -Check UA and urine studies, not c/w volume depletion, likely ADH stimulus from unknown etiology -If does not improve, may benefit from x1 tolvaptan to gauge response vs salt tabs -Fluid restriction: 1.2L -Encourage 3 meals a day high in protein and ensure supplements ordered -Need to control pain/vomiting with prn medications to suppress further ADH stimulation -Na rate of correction not to exceed >8mEq/L/day to prevent neurological sequelae -Please notify nephrology if rate of rise is exceeding above parameters -We will follow closely with you Thank you for the consult and the opportunity to participate in the care of this patient. Please do not hesitate to call with any questions or concerns. Brenda Blanco APRN, ADVANCED REGISTERED NURSE [facility], [facility] [phone] office Seen and examined. Agree with above assessment and plan. The patient is hyponatremia likely from excess ADH (valproic acid, venlafaxine, narcotics ) versus poor p.o. solute intake Had protein rich supplements to every meal Start fluid restriction If drops more we will have to add tolvaptan. Discussed with RN at bedside We will follow Associated Order(s): IP CONSULT TO PSYCHIATRY Department of Psychiatry Nurse Practitioner Consult Note Available for page via [facility] Monday, Monday, Monday [phone] Outside of these hours, please contact Dr. Nj (M-F 8-7) or psychiatry on-call. Moises Madrid is a 61 y.o. male Chief Complaint Patient presents with Chest Pain Pt states chest pain started around 3-4 oclock today, per EMS NH thought it was GERD so they gave him an antacid. Pt states pain did not get any better, pt describes pain as heaviness in the center of his chest. Pt states his pain was a 7/10 then squad gave baby ASA and pain is not a 5/10. History obtained from: patient and chart review Appropriate PPE worn throughout patient interaction, in accordance with CDC and hospital guidelines. Chart reviewed, including notes, labs, imaging, allergies, and medications; all pertinent information discussed with medical staff, nursing, and social work if necessary. Reason for consult: suicidal ideation? Patient reported telling nurses he wanted to HPI: Mr. Madrid is a 61M with PMH anxiety, bipolar disorder, chronic pain, GERD, chronic headaches, HLD, HTN, insomnia, neuropathy, TBI who presented initially for chest pain. Patient now medically admitted for ACS, pancreatitis, uncomplicated sepsis. Patient resting in bed, alert, appropriately dressed in hospital attire. Introduced self and explained role. Patient states he feels lousy. He notably needs to take a breath in between each word. Reports feeling very SOB and experiencing really bad abdominal pain. He admits to feeling that he doesn't want to live anymore. The pain, too much, I can't go on. He denies having a plan. He is notably very weak and hardly moves during discussion. He states he has been feeling this way since I came here. Reports living at the [facility] in [place] and states he likes it there. Has a friend [place] there that he wants to talk to but I can't talk on the phone (soft spoken, sob). Asked if he knows his mental health diagnosis, he states, I'm crazy. Asked if he finds his medications helpful, he states I don't know. He is unable to provide year or current president. Asked why we wear masks, so you don't get sick but doesn't identify COVID. He does not seem confused but rather very apathetic. He admits to persistent depressed mood, anhedonia, lousy appetite, bad sleep, fatigue, poor concentration, feelings of worthlessness and hopelessness. He also endorses persistent worry about his current situation and whether or not he will improve and go home. He denies feelings of panic, trauma avoidance, obsessions, compulsions, paranoia, hallucinations. Asked about history of manic behaviors but he states I don't know. Asked if spiritual consult would be beneficial, he again states I don't know. Verbal encouragement and support provided during discussion today. Utilized active listening and validation. Reviewed coping skills, stress management. Reviewed positive attributes and encouraged self-abilities. Psychiatric Review Of Systems: Depressed mood:Yes, describe: persistent since admission Sleep changes:Yes, describe: lousy Appetite changes: Yes, describe: decreased Weight changes: No Energy changes:Yes, describe: reduced Loss of interest/anhedonia:Yes, describe: reduced Somatic symptoms:No Libido changes:No Anxiety/panic: Yes, describe: persistent worry, denies panic symptoms Guilty/hopeless: Yes, describe: hopelessness, worthlessness; denies guilt Self-injurious/risky behavior:No Suicidal ideation:Yes, describe: passive thoughts of not wanting to be alive; denies plan or intent to harm self Homicidal ideation:No Access to weapons:No Lifetime Psychiatric Review Of Systems: Monty or hypomania:Yes, describe: patient diagnosed with bipolar 1 disorder, monty likely in past, does endorse being hospitalized and having suicide attempts in past but is unable to provide details on symptom history Panic attacks:No Phobias:No Obsessions/compulsions: No Hallucinations: No Delusions:No Psychiatric History: diagnosed bipolar 1, insomnia, anxiety, TBI. Records from [place] note diagnosis of bipolar disorder, severe, current episode depressed with psychotic features and mixed expressive-receptive language disorder Psychiatrist: through [facility] @ [place] Counselor: denies Counter Intelligence Technician: I don't know Hospitalizations: multiple in past, patient guesses four or five, unable to define when his last hospitalization was Suicide Attempts: same as above, multiple, unable to identify most recent attempt Current medications: abilify 5mg daily, depakote DR 500mg at bedtime, namenda 10mg BID, melatonin 10mg nightly, and venlafaxine 75mg BID Previous medication trials: unknown Past Medical History: Diagnosis Date Anxiety Ataxia Bipolar disorder (HCC) Chronic pain Constipation Contracture, right hand Depression Dysphagia Dysphagia Dysphonia Edema GERD (gastroesophageal reflux disease) Headache Hemiplegia (CMS/HCC) (HCC) Hyperlipidemia Hypertension Insomnia Muscle weakness Neuropathy TBI (traumatic brain injury) No current facility-administered medications on file prior to encounter. Current Outpatient Medications on File Prior to Encounter Medication Sig Dispense Refill cloNIDine (Catapres) 0.[address] 0.3 mg on the skin 1 (one) time per week. acetaminophen (Tylenol) 325 MG tablet Take 650 mg by mouth every 4 hours as needed for mild pain (1-3). albuterol (2.5 MG/3ML) 0.083% nebulizer solution Take by nebulization every 3-4 hours as needed for wheezing. ARIPiprazole (Abilify) 5 MG tablet Take 5 mg by mouth daily. aspirin 81 MG EC tablet Take 81 mg by mouth daily. atorvastatin (Lipitor) 40 MG tablet Take 40 mg by mouth Nightly. cholecalciferol (Vitamin D3) 1.25 MG (36731 UT) tablet Take by mouth 1 (one) time per week. clobetasol (Temovate) 0.05 % cream Apply topically 2 times daily. dextromethorphan 15 MG/5ML syrup Take 10 mL by mouth as needed for cough. divalproex (Depakote ER) 500 MG 24 hr tablet Take 500 mg by mouth Nightly. Docusate Sodium (DSS) 100 MG capsule Take 100 mg by mouth daily. famotidine (Pepcid) 20 MG tablet Take 20 mg by mouth every morning. famotidine (Pepcid) 40 MG tablet Take 40 mg by mouth in the morning. gabapentin (Neurontin) 100 MG capsule Take 200 mg by mouth 2 times daily. gabapentin (Neurontin) 300 MG capsule Take 300 mg by mouth Nightly. glucosamine-chondroitin 500-400 MG tablet Take 1 tablet by mouth in the morning and 1 tablet in the evening. guaiFENesin (Mucinex) 600 MG 12 hr tablet Take 1,200 mg by mouth 2 times daily. Do not crush, chew, or split. HYDROcodone-acetaminophen ([place]) 5-325 MG tablet Take 1 tablet by mouth every 6 hours as needed. ketoconazole (NIZOral) 2 % cream Apply topically 2 times daily. lisinopril 20 MG tablet Take 40 mg by mouth daily. melatonin 5 MG tablet Take 3 mg by mouth Nightly. memantine (Namenda) 10 MG tablet Take 10 mg by mouth 2 times daily. metoprolol tartrate (Lopressor) 25 MG tablet Take 25 mg by mouth 2 times daily. mineral oil-hydrophilic petrolatum (Aquaphor) ointment Apply topically if needed for dry skin. [place]-3 Fatty Acids (Fish Oil) 1000 MG capsule delayed-release Take 2,000 mg by mouth. potassium chloride CR (Klor-Con M20) 20 MEQ ER tablet Take 40 mEq by mouth daily. Do not crush or chew. spironolactone (Aldactone) 100 MG tablet Take 100 mg by mouth daily. tamsulosin (Flomax) 0.4 MG 24 hr capsule Take 0.4 mg by mouth daily. tiZANidine (Zanaflex) 2 MG tablet Take 4 mg by mouth every 12 hours as needed for muscle spasms. venlafaxine (Effexor) 75 MG tablet Take 75 mg by mouth 2 times daily. Allergies: Allergies Allergen Reactions Hydralazine Unknown Sulfamethoxazole-Trimethoprim Unknown Temazepam Unknown Tramadol Unknown Clindamycin Rash Burn, rash Burn, rash Substance Abuse History: denies substance abuse history. Reports using marijuana occasionally for pain in the past. Endorses history of nicotine and occasional alcohol. Denies all substances currently. Urine Drug Screen: not performed Social History: Patient reports growing up in [place] with both parents and two brothers. He denies abuse/violence in the home as a child. Denies abuse/violence as an adult. 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 He has never been , has no children. Reports he has 1 brother that occasionally checks in with him but the other is estranged, voices no other support. Currently living in [facility], has been there for several years and likes it there. Denies service, denies legal history. Denies affiliation with yazidi but does endorse a belief in God. Social Determinants of Health Tobacco Use: Low Risk Smoking Tobacco Use: Never Smokeless Tobacco Use: Never Passive Exposure: Not on file Alcohol Use: Not At Risk Frequency of Alcohol Consumption: Never Average Number of Drinks: Patient does not drink Frequency of Binge Drinking: Never Financial Resource Strain: Not on file Food Insecurity: Not on file Transportation Needs: No Transportation Needs Lack of Transportation (Medical): No Lack of Transportation (Non-Medical): No Physical Activity: Not on file Stress: Not on file Social Connections: Not on file Intimate Partner Violence: Not At Risk Fear of Current or Ex-Partner: No Emotionally Abused: No Physically Abused: No Sexually Abused: No Depression: Not on file Housing Stability: Unknown Unable to Pay for Housing in the Last Year: No Number of Places Lived in the Last Year: Not on file Unstable Housing in the Last Year: No Family History: States I don't know when asked about psychiatric family history. Does endorse that one of his brothers struggles with drugs and alcohol. No family history on file. Imaging Reviewed: CT abdomen 06/10 CXR 06/10 ECG 06/09 Review of Systems Constitutional: Positive for activity change, appetite change and fatigue. Negative for diaphoresis. HENT: Positive for trouble swallowing. Negative for congestion. Respiratory: Positive for cough and shortness of breath. Cardiovascular: Negative for chest pain. Gastrointestinal: Positive for abdominal pain and nausea. Negative for vomiting. Musculoskeletal: Positive for myalgias. Neurological: Positive for speech difficulty, weakness and headaches. Negative for dizziness. Psychiatric/Behavioral: Positive for confusion, decreased concentration, dysphoric mood, sleep disturbance and suicidal ideas. Negative for agitation, behavioral problems and hallucinations. Recent Results (from the past 48 hour(s)) Lactic acid, plasma Collection Time: 06/10/22 9:58 AM Result Value Ref Range LACTIC ACID 1.4 0.7 - 2.0 mmol/L Blood culture #1 - Suspected Infection Collection Time: 06/10/22 9:58 AM Specimen: Blood, Venous Result Value Ref Range Blood Culture No growth at 24 hours Blood culture #2 - Suspected Infection Collection Time: 06/10/22 9:58 AM Specimen: Blood, Venous Result Value Ref Range Blood Culture No growth at 24 hours SARS-CoV-2 and Respiratory PCR Panel Collection Time: 06/10/22 10:00 AM Specimen: Nasopharynx; Swab Result Value Ref Range SARS-CoV-2 Not Detected Not Detected Adenovirus Not Detected Not Detected Coronavirus HKU1 Not Detected Not Detected Coronavirus NL63 Not Detected Not Detected Coronavirus 229E Not Detected Not Detected Coronavirus OC43 Not Detected Not Detected Human Metapneumovirus Not Detected Not Detected Human Rhinovirus/Enterovirus Not Detected Not Detected Influenza A Not Detected Not Detected Influenza B Not Detected Not Detected Parainfluenza 1 Not Detected Not Detected Parainfluenza 2 Not Detected Not Detected Parainfluenza 3 Not Detected Not Detected Parainfluenza 4 Not Detected Not Detected Respiratory Syncytial Virus Not Detected Not Detected Bordetella pertussis Not Detected Not Detected Bordetella parapertussis Not Detected Not Detected Chlamydia pneumoniae Not Detected Not Detected Mycoplasma pneumoniae Not Detected Not Detected Protime-INR Collection Time: 06/10/22 11:44 AM Result Value Ref Range PROTHROMBIN TIME 12.0 9.0 - 12.0 s INR 1.1 0.9 - 1.1 Legionella and Streptococcus Urine Antigen Collection Time: 06/10/22 12:43 PM Specimen: Urine, Clean Catch Result Value Ref Range Legionella pneumophila Ag Not Detected Not Detected Streptococcus pneumoniae Ag Not Detected Not Detected Complete Urinalysis Collection Time: 06/10/22 12:43 PM Result Value Ref Range Color, Urine Yellow Lt. Yellow Clarity, Urine Clear Clear pH, Urine 6.0 5.0 - 8.0 pH Leukocytes, Urine Negative Negative Chika/uL Nitrite, Urine Negative Negative Protein, Urine 200 (A) Negative mg/dL Glucose, Urine >1,000 (A) Normal (<70) mg/dL Bilirubin, Urine Negative Negative mg/dL Ketones, Urine Trace (A) Negative mg/dL Urobilinogen, Urine 2 (A) Normal (0-1) mg/dL Blood, Urine Negative Negative mg/dL RBC, Urine 0-2 0 - 2 /HPF WBC, Urine 3-5 0 - 5 /HPF Squamous Epithelial, Urine 0-2 3 - 5 /HPF Bacteria, Urine Negative Negative /HPF Mucus, Urine Few Negative /LPF SPECIFIC GRAVITY OF URINE (NUMERIC) 1.038 (H) 1.005 - 1.030 Culture, Aerobic Bacteria with Gram Stain Collection Time: 06/10/22 2:33 PM Specimen: Abdomen; Abscess Result Value Ref Range Culture No growth at 18-24 hours Gram Stain Result (A) Rare Polymorphonuclear leukocytes per low power field Gram Stain Result Few Gram negative cocci (A) Triglycerides Collection Time: 06/10/22 3:11 PM Result Value Ref Range TRIGLYCERIDE 125 <150 mg/dL CBC auto differential Collection Time: 06/11/22 5:10 AM Result Value Ref Range Auto WBC 17.3 (H) 3.6 - 10.7 10*3/uL RBC 4.40 4.40 - 5.90 10*6/uL Hemoglobin 13.8 13.0 - 18.0 g/dL Hematocrit 41.0 40.0 - 52.0 % MCV 93.3 80.0 - 98.0 fL MCH 31.5 26.0 - 34.0 pg MCHC 33.7 32.0 - 36.0 % RDW 13.8 11.5 - 14.5 % Platelets 132 (L) 140 - 440 10*3/uL MPV 9.1 7.4 - 12.4 fL nRBC 0.0 0.0 - 2.0 /100 WBCs Neutrophils Relative 80.7 (H) 40.0 - 80.0 % Lymphocytes Relative 10.4 (L) 20.0 - 40.0 % Monocytes Relative 8.5 2.0 - 10.0 % Eosinophils Relative 0.2 (L) 1.0 - 6.0 % Basophils Relative 0.2 0.0 - 2.0 % Neutrophils Absolute 14.0 (H) 1.8 - 7.0 10*3/uL Lymphocytes Absolute 1.8 1.0 - 4.3 10*3/uL Monocytes Absolute 1.5 (H) 0.0 - 0.8 10*3/uL Eosinophils Absolute 0.0 0.0 - 0.5 10*3/uL Basophils Absolute 0.0 0.0 - 0.2 10*3/uL Magnesium Collection Time: 06/11/22 5:10 AM Result Value Ref Range MAGNESIUM 2.1 1.6 - 2.3 mg/dL Comprehensive metabolic panel Collection Time: 06/11/22 5:10 AM Result Value Ref Range SODIUM 133 (L) 135 - 145 mmol/L POTASSIUM 4.3 3.5 - 5.1 mmol/L CHLORIDE 104 98 - 107 mmol/L CARBON DIOXIDE 29 22 - 30 mmol/L ANION GAP 1 (L) 3 - 13 mmol/L UREA NITROGEN 16 9 - 20 mg/dL CREATININE 0.97 0.66 - 1.25 mg/dL GLUCOSE 145 (H) 70 - 100 mg/dL CALCIUM 7.0 (L) 8.4 - 10.4 mg/dL AST (SGOT) 30 15 - 46 U/L ALT 15 0 - 49 U/L ALKALINE PHOSPHATASE 69 38 - 126 U/L ALBUMIN 2.9 (L) 3.5 - 5.0 g/dL BILIRUBIN, TOTAL 1.2 0.2 - 1.3 mg/dL TOTAL PROTEIN 5.7 (L) 6.3 - 8.2 g/dL eGFR 89.9 >60.0 mL/min/1.73m*2 Pneumonia PCR Panel Collection Time: 06/11/22 1:34 PM Specimen: Sputum Result Value Ref Range Staphylococcus aureus Not Detected Not Detected Streptococcus agalactiae Not Detected Not Detected Streptococcus pneumoniae Not Detected Not Detected Streptococcus pyogenes Not Detected Not Detected Haemophilus influenzae Not Detected Not Detected Moraxella catarrhalis Not Detected Not Detected Acinetobacter baumannii complex Not Detected Not Detected Enterobacter cloacae complex Not Detected Not Detected Escherichia coli Not Detected Not Detected Klebsiella (Enterobacter) aerogenes Not Detected Not Detected Klebsiella oxytoca Not Detected Not Detected Klebsiella pneumoniae Not Detected Not Detected Proteus spp Not Detected Not Detected Pseudomonas aeruginosa Not Detected Not Detected Serratia marcescens Not Detected Not Detected Chlamydia pneumoniae Not Detected Not Detected Legionella pneumophila Not Detected Not Detected Mycoplasma pneumoniae Not Detected Not Detected Adenovirus Not Detected Not Detected Coronavirus Not Detected Not Detected Human Metapneumovirus Not Detected Not Detected Human Rhinovirus/Enterovirus Not Detected Not Detected Influenza A Not Detected Not Detected Influenza B Not Detected Not Detected Parainfluenza virus Not Detected Not Detected Respiratory Syncytial Virus Not Detected Not Detected Respiratory culture Collection Time: 06/11/22 1:34 PM Specimen: Sputum Result Value Ref Range Respiratory culture Culture in progress Gram Stain Result Rare Epithelial cells per low power field Gram Stain Result Moderate Polymorphonuclear leukocytes per low power field Gram Stain Result No organisms seen Vascular US lower extremity venous duplex bilateral Collection Time: 06/11/22 5:03 PM Result Value Ref Range Right Pop Rfx 1.0 s Comprehensive metabolic panel Collection Time: 06/12/22 3:58 AM Result Value Ref Range SODIUM 129 (L) 135 - 145 mmol/L POTASSIUM 4.1 3.5 - 5.1 mmol/L CHLORIDE 104 98 - 107 mmol/L CARBON DIOXIDE 27 22 - 30 mmol/L ANION GAP -3 (L) 3 - 13 mmol/L UREA NITROGEN 11 9 - 20 mg/dL CREATININE 0.84 0.66 - 1.25 mg/dL GLUCOSE 140 (H) 70 - 100 mg/dL CALCIUM 7.0 (L) 8.4 - 10.4 mg/dL AST (SGOT) 29 15 - 46 U/L ALT 17 0 - 49 U/L ALKALINE PHOSPHATASE 67 38 - 126 U/L ALBUMIN 2.6 (L) 3.5 - 5.0 g/dL BILIRUBIN, TOTAL 1.1 0.2 - 1.3 mg/dL TOTAL PROTEIN 5.2 (L) 6.3 - 8.2 g/dL eGFR >90.0 >60.0 mL/min/1.73m*2 CBC auto differential Collection Time: 06/12/22 3:58 AM Result Value Ref Range Auto WBC 11.9 (H) 3.6 - 10.7 10*3/uL RBC 3.82 (L) 4.40 - 5.90 10*6/uL Hemoglobin 11.8 (L) 13.0 - 18.0 g/dL Hematocrit 35.4 (L) 40.0 - 52.0 % MCV 92.8 80.0 - 98.0 fL MCH 31.0 26.0 - 34.0 pg MCHC 33.4 32.0 - 36.0 % RDW 13.8 11.5 - 14.5 % Platelets 121 (L) 140 - 440 10*3/uL MPV 9.4 7.4 - 12.4 fL nRBC 0.0 0.0 - 2.0 /100 WBCs Neutrophils Relative 74.8 40.0 - 80.0 % Lymphocytes Relative 13.0 (L) 20.0 - 40.0 % Monocytes Relative 10.2 (H) 2.0 - 10.0 % Eosinophils Relative 1.5 1.0 - 6.0 % Basophils Relative 0.5 0.0 - 2.0 % Neutrophils Absolute 8.9 (H) 1.8 - 7.0 10*3/uL Lymphocytes Absolute 1.5 1.0 - 4.3 10*3/uL Monocytes Absolute 1.2 (H) 0.0 - 0.8 10*3/uL Eosinophils Absolute 0.2 0.0 - 0.5 10*3/uL Basophils Absolute 0.1 0.0 - 0.2 10*3/uL Magnesium Collection Time: 06/12/22 3:58 AM Result Value Ref Range MAGNESIUM 2.0 1.6 - 2.3 mg/dL Lipase Collection Time: 06/12/22 3:58 AM Result Value Ref Range LIPASE 339 (H) 23 - 300 U/L Vitals: 06/11/22 2255 06/11/22 2300 06/12/22 0300 06/12/22 0400 BP: 132/74 (!) 143/86 BP Location: Patient Position: Pulse: 104 94 Resp: 22 14 Temp: 36.6 C (97.9 F) 36.8 C (98.2 F) TempSrc: Oral Oral SpO2: 92% 99% Weight: Height: Physical Exam Vitals and nursing note reviewed. Constitutional: General: He is not in acute distress. Appearance: He is ill-appearing. HENT: Head: Normocephalic. Mouth/Throat: Mouth: Mucous membranes are moist. Eyes: Pupils: Pupils are equal, round, and reactive to light. Cardiovascular: Rate and Rhythm: Tachycardia present. Pulmonary: Effort: No respiratory distress. Skin: General: Skin is warm and dry. Comments: Redness to bilateral LE Neurological: Mental Status: He is alert. He is disoriented. Psychiatric: Attention and Perception: Attention and perception normal. Mood and Affect: Mood is depressed. Affect is flat. Speech: Speech is delayed. Comments: Difficulty with speech due to shortness of breath, can be difficult to understand (edentulous). Confusion mild Mental Status Exam: Level of Consciousness: [x] Alert Orientation: Person: [x] yes [] no Date/Time: [] yes [x] no Place: [x] yes [] no [x] Disoriented [x] Confused [] Drowsy/Somnolent [] Tired [] Lethargic [] Asleep [] Could not be assessed Gait: [] Steady [] Unsteady [] Sitting [x] Lying [] Assisted Device Used Appearance: [x] Appropriate [] Disheveled [] Poor Hygiene [] Improved [] Unchanged [] Appears Stated Age [x] Appears Older [] Appears Younger Behavior/Manner: [x] Cooperative [x] Pleasant [] Irritable [] Hostile [] Agitated [] Aggressive [] Combative [] Guarded [] Restricted [] Suspicious [] Withdrawn [] Slowed [] Hyperactive [] Other Motor Activity: [] Normal [x] Decreased [] Agitation [] Psychomotor retardation [] Tremor [] Abnormal involuntary movements [] Extrapyramidal side effects [] Tardive dyskinesia [] Restlessness Speech: [] Normal [] Spontaneous [] Nonverbal [] Soft [] Loud [] Noncommunicative [] Rapid [] Pressured [] Tangential [] Dysarthria [] Incoherent [x] Other Language: [x] Normal [] Expressive Aphasia [] Fluent Aphasia [] Other Mood: [] Euthymic [] Elated [] Euphoric [x] Depressed [] Irritable [] Angry [] Anxious [] Fearful [] Apathetic [] Other Affect: [x] Mood Congruent [] Full [x] Flat [] Broad [] Blunted [] Restricted [] Guarded [] Irritable [] Angry [] Labile [] Anxious [] Depressed [] Tearful [] Expansive [] Exaggerated [] Other Thought Process/Association: [x] Organized [x] Logical [x] Future Forward [] Disorganized [] Tangential [] Loose associations [] Circumstantial [] Spencer [] Perseverative [] Poverty of Thought [] Racing Thoughts [] Flight of Ideas [] Thought Blocking [] Incoherent [] Could not be assessed Thought Contents: [] Denies suicidal ideation, intent, plan [x] Denies homicidal ideation, intent, plan [x] No s/s Monty [x] No s/s Psychosis [] Hopeful [] Motivated [x] Future Oriented [x] Suicidal ideation [] Suicidal intent/ plan [] Thoughts of self-harm [] Paranoia [] Ruminations [] Delusions [] Obsessions/Compulsions [x] Hopelessness [x] Worthlessness [] Hypochondriasis [] Homicidal ideation [] Homicidal intent/plan [] Could not be assessed Perception: [x] Normal [] Hallucinations [] Auditory [] Visual [] Olfactory [] Tactile [] Dissociation [] Flashbacks [] Could not be assessed Attention/Concentration: [x] Intact [] Impaired [] Poor [] Distractible [] Other Fund of Knowledge: [x] appropriate for education level [] below expectations for education level Cognition: [] Intact [x] Impaired Memory: [] Intact [x] Impaired Judgement: [] Intact [x] Impaired [] Poor [] Fair [] Variable Insight: [] Intact [x] Impaired [] Poor [] Fair [] Limited SUICIDE RISK ASSESSMENT Chronic Factors: unknown family history of mental illness, + personal history of psych illness, past SA, minimal external support, relationship/employment/medical stressors Protective Factors: endorses desire to improve condition, treatment compliance, access to outpatient treatment Risk Assessment: low while on unit Modifiable Factors: denies access to firearms, currently on psychiatric meds Psychiatric Disorder/Symptoms: were discussed at length today and will be addressed during psychiatric admission Outpatient treatment access: patient can resume current outpatient psychiatric care upon discharge Stressors: were discussed in depth, along with potential solutions/coping skills Patient Active Problem List Diagnosis Chest pain Chest pain, unspecified type Obesity, Class I, BMI 30-34.9 Hyperlipidemia Essential hypertension, benign Depression Hemiplegia (CMS/HCC) ([facility]) Idiopathic chronic venous hypertension of right lower extremity with ulcer ([facility]) ASSESSMENT Major Depression vs Bipolar with current episode depressed Anxiety, generalized Insomnia TBI, historical PLAN Patient has not been receiving home psychiatric medications, this is likely contributing to his decompensation. Will resume home meds, with consideration that patient is taking meds crushed in applesauce currently. Recommend delirium precautions if not already in place. Patient adamantly denies a plan to harm himself and contracts for safety while in hospital. Will hold off on constant no experience at this time. Should patient verbalize a plan or worsening SI, recommend adding suicide precautions and constant no experience. Patient's passive suicidal thoughts appear directly related to his severe pain, shortness of breath, and overall poor medical status. I suspect that this will improve both 1) with resumption of home medications and 2) with improvement in pain and breathing. Patient may be appropriate for psychiatry if this is not the case. Psychiatry will follow peripherally and assist with dispo when appropriate. Medication options were reviewed; Education performed on risks, benefits, side effects, expectations of treatment, importance of compliance, risks of declining treatment, as well as alternative treatments for mood dysregulation, insomnia; discussed venlafaxine, namenda, depakote, restoril, lorazepam, seroquel, abilify. Patient given ample time to ask questions and review any concerns. I spent total time 55 minutes reviewing previous notes, test results, and face to face with the patient discussing the diagnosis and importance of compliance with the treatment plan as well as documenting on the day of visit. Also included in this time: symptom evaluation, counseling/education, and coordination of care with multidisciplinary care team. Associated Order(s): IP CONSULT TO INFECTIOUS DISEASES Images from the original note were not included. [facility] - Infectious Diseases Attending Consult Note Reason for Consult: Pancreatic fluid collection/abscess History of Present Illness: Patient is 61 year old admitted to [facility] with shortness of breath and chest discomfort that has been going on for quite awhile. Complains of cough and sputum, also quite awhile and abdominal pain, non-radiating that has been quite a while. He denies urine changes, but has chronic catheter. Denies stool changes. Denies appetite changes. Denies fever, chills. No other new exacerbating or allevaiting factors. Nausea without vomiting. Past Medical History: Past Medical History: Diagnosis Date Anxiety Ataxia Bipolar disorder (HCC) Chronic pain Constipation Contracture, right hand Depression Dysphagia Dysphagia Dysphonia Edema GERD (gastroesophageal reflux disease) Headache Hemiplegia (CMS/HCC) (HCC) Hyperlipidemia Hypertension Insomnia Muscle weakness Neuropathy TBI (traumatic brain injury) Past Surgical History: Past Surgical History: Procedure Laterality Date CRANIOTOMY Current Medications: Current Facility-Administered Medications Medication Dose Route Frequency Provider Last Rate Last Admin acetaminophen (Tylenol) tablet 650 mg 650 mg Oral q6h PRN Brenda Hagan 650 mg at 06/11/22 0020 Or acetaminophen (Tylenol) suppository 650 mg 650 mg Rectal q6h PRN Brenda Hagan aspirin chewable tablet 81 mg 81 mg Oral Daily Brenda Hagan 81 mg at 06/11/22 0815 bisacodyl (Dulcolax) suppository 10 mg 10 mg Rectal Daily PRN Mani Edgar DO dextrose 5 % infusion 100 mL/hr IntraVENous PRN Jennie Castelan PA-C dextrose 50 % solution 12.5 g 12.5 g IntraVENous PRN Jennie Castelan PA-C DOBUTamine (Dobutrex) 250 mg in dextrose 5 % 250 mL infusion (premix) 10 mcg/kg/min IntraVENous Continuous Matteo Rios MD Stopped at 06/09/22 1402 enoxaparin (Lovenox) syringe 40 mg 40 mg SubCUTAneous Daily Brenda Hagan 40 mg at 06/11/22 0815 glucagon (human recombinant) injection 1 mg 1 mg IntraMUSCular PRN Jennie Castelan PA-C glucose oral gel 15 g 15 g Oral PRN Jennie Castelan PA-C HYDROmorphone (Dilaudid) injection 0.5 mg 0.5 mg IntraVENous q4h PRN Mani Edgar, DO 0.5 mg at 06/12/22 0606 influenza vaccine split quadravalent (Flulaval,Fluzone,Fluarix,Afluria) syringe 0.5 mL 0.5 mL IntraMUSCular Once Brenda Hagan lactated Ringer's infusion 200 mL/hr IntraVENous Continuous Mani Edgar DO 200 mL/hr at 06/12/22 0317 200 mL/hr at 06/12/22 0317 lidocaine (Uro-Jet) 2 % gel Urethral PRN Mani Edgar, DO melatonin tablet 6 mg 6 mg Oral Nightly PRN Brenda Hagan 6 mg at 06/11/228 miconazole (Micotin) 2 % powder Topical BID Bertha Rodrigez APRN - [employer]VANCED REGISTERED NURSE Given at 06/11/222156 nitroglycerin (Nitrostat) SL tablet 0.4 mg 0.4 mg SubLINGual q5 min PRN Brenda Hagan ondansetron ODT (Zofran-ODT) disintegrating tablet 4 mg 4 mg Oral q8h PRN Brenda Hagan Or ondansetron (Zofran) injection 4 mg 4 mg IntraVENous q6h PRN Brenda Hagan oxyCODONE-acetaminophen (Percocet) 5-325 MG per tablet 1 tablet 1 tablet Oral q6h PRN Mani Edgar, DO 1 tablet at 06/12/22 0359 piperacillin-tazobactam (Zosyn) 4,500 mg in dextrose 5 % 100 mL IVPB 4,500 mg IntraVENous q6h Mani Vokd, DO 200 mL/hr at 06/12/22 0606 4,500 mg at 06/12/22 0606 polyethylene glycol (PEG) 3350 (Miralax) packet 17 g 17 g Oral Daily PRN Brenda Hagan 17 g at 06/11/22 1517 senna-docusate sodium (Senokot-S) 8.6-50 MG tablet 2 tablet 2 tablet Oral Daily Mani Edgar, DO 2 tablet at 06/11/22 0815 stomahesive in petrolatum (ET Mix) Topical PRN Bertha Rodrigez APRN - JENIFER Given at 06/11/22 1546 Allergies: Allergies Allergen Reactions Hydralazine Unknown Sulfamethoxazole-Trimethoprim Unknown Temazepam Unknown Tramadol Unknown Clindamycin Rash Burn, rash Burn, rash Social History: Social History Socioeconomic History Marital status: Single Spouse name: Not on file Number of children: Not on file Years of education: Not on file Highest education level: Not on file Occupational History Not on file Tobacco Use Smoking status: Never Smokeless tobacco: Never Vaping Use Vaping Use: Never used Substance and Sexual Activity Alcohol use: Never Drug use: Never Sexual activity: Not on file Other Topics Concern Not on file Social History Narrative Not on file Social Determinants of Health Financial Resource Strain: Not on file Food Insecurity: Not on file Transportation Needs: No Transportation Needs Lack of Transportation (Medical): No Lack of Transportation (Non-Medical): No Physical Activity: Not on file Stress: Not on file Social Connections: Not on file Intimate Partner Violence: Not At Risk Fear of Current or Ex-Partner: No Emotionally Abused: No Physically Abused: No Sexually Abused: No Housing Stability: Unknown Unable to Pay for Housing in the Last Year: No Number of Places Lived in the Last Year: Not on file Unstable Housing in the Last Year: No Family History: No family history on file. Review of Systems: Review of Systems Constitutional: Negative for appetite change, chills, fever and unexpected weight change. HENT: Negative for ear pain, hearing loss and tinnitus. Respiratory: Positive for cough, chest tightness and shortness of breath. Cardiovascular: Negative for chest pain. Gastrointestinal: Positive for abdominal pain and nausea. Negative for diarrhea and vomiting. Endocrine: Negative. Genitourinary: Negative for dysuria, flank pain, hematuria and urgency. Musculoskeletal: Negative. Skin: Negative for rash. Neurological: Negative. Negative for dizziness and light-headedness. Hematological: Negative. Psychiatric/Behavioral: Negative. All other systems reviewed and are negative. Vitals: Patient Vitals for the past 24 hrs: BP Temp Temp src Pulse Resp SpO2 06/12/22 0400 -- 36.8 C (98.2 F) Oral -- -- -- 06/12/22 0300 (!) 143/86 -- -- 94 14 99 % 06/11/22 2300 132/74 -- -- 104 22 92 % 06/11/22 2255 -- 36.6 C (97.9 F) Oral -- -- -- 06/11/22 2100 (!) 142/87 -- -- (!) 112 23 95 % 06/11/22 2000 (!) 149/84 -- -- 109 15 -- 06/11/22 1930 -- 37.8 C (100.1 F) Oral -- -- -- 06/11/22 1900 127/70 -- -- 109 17 99 % 06/11/22 1800 131/73 37 C (98.6 F) Oral (!) 111 22 94 % 06/11/22 1700 125/76 -- -- 109 17 94 % 06/11/22 1600 121/79 -- -- 108 16 93 % 06/11/22 1545 -- 37.1 C (98.8 F) Oral (!) 115 19 94 % 06/11/22 1500 130/72 -- -- (!) 115 26 91 % 06/11/22 1400 136/72 -- -- (!) 112 17 94 % 06/11/22 1300 -- -- -- (!) 115 17 94 % 06/11/22 1200 125/64 -- -- 108 15 96 % 06/11/22 1122 -- 36.5 C (97.7 F) Oral -- -- -- 06/11/22 1102 130/75 -- -- 110 22 92 % 06/11/22 1100 130/75 -- -- 110 16 90 % 06/11/22 1000 -- -- -- (!) 117 22 94 % 06/11/22 0900 -- -- -- 110 15 94 % 06/11/22 0815 -- 36.4 C (97.5 F) Oral (!) 112 22 96 % 06/11/22 0807 -- -- -- (!) 112 18 95 % 06/11/22 0805 120/84 -- -- (!) 111 17 95 % 06/11/22 0800 -- -- -- (!) 112 (!) 28 (!) 84 % Physical Exam: Physical Exam Vitals and nursing note reviewed. Constitutional: General: He is not in acute distress. Appearance: He is well-developed. He is ill-appearing. Comments: Awake, NAD in bed. Responds largely appropriately. HENT: Head: Normocephalic and atraumatic. Right Ear: External ear normal. Left Ear: External ear normal. Nose: Nose normal. Mouth/Throat: Mouth: Mucous membranes are moist. Pharynx: Oropharynx is clear. No oropharyngeal exudate. Eyes: General: No scleral icterus. Extraocular Movements: Extraocular movements intact. Conjunctiva/sclera: Conjunctivae normal. Pupils: Pupils are equal, round, and reactive to light. Neck: Thyroid: No thyromegaly. Vascular: No JVD. Cardiovascular: Rate and Rhythm: Normal rate and regular rhythm. Pulses: Normal pulses. Heart sounds: Normal heart sounds. No murmur heard. No friction rub. No gallop. Pulmonary: Effort: No respiratory distress. Breath sounds: No stridor. Rhonchi present. No wheezing or rales. Comments: Short shallow breaths, moist breath sounds. Abdominal: General: There is no distension. Palpations: Abdomen is soft. There is no mass. Tenderness: There is abdominal tenderness. There is no guarding or rebound. Hernia: No hernia is present. Comments: Abdominal drain site clean. Bloody material with minimal purulence. Slight tenderness epigastrium. Genitourinary: Comments: Buckley with clear yellow urine. Musculoskeletal: General: No swelling or deformity. Normal range of motion. Cervical back: Normal range of motion and neck supple. Right lower leg: No edema. Left lower leg: No edema. Lymphadenopathy: Cervical: No cervical adenopathy. Skin: General: Skin is warm and dry. Coloration: Skin is not jaundiced. Findings: No rash. Comments: Tinea pedis. Erosion r 2nd toe. Neurological: General: No focal deficit present. Mental Status: Mental status is at baseline. Cranial Nerves: No cranial nerve deficit. Deep Tendon Reflexes: Reflexes normal. Comments: Weak RLE. Psychiatric: Mood and Affect: Mood normal. Behavior: Behavior normal. Labs: Recent Labs 06/10/2222806/11/2250906/12/22357 NA 133* 133* 129* K 4.3 4.3 4.1 CL 105 104 104 CO2 22 29 27 BUN 19 16 11 CREATININE 0.87 0.97 0.84 GLUCOSE 233* 145* 140* CALCIUM 7.4* 7.0* 7.0* PROT 6.3 5.7* 5.2* BILITOT 1.1 1.2 1.1 ALKPHOS 83 69 67 AST 63* 30 29 ALT 18 15 17 PROCAL 0.06 -- -- Recent Labs 06/10/2222806/11/2250906/12/228 WBC 20.2* 17.3* 11.9* HGB 15.4 13.8 11.8* HCT 44.7 41.0 35.4* PLT 121* 132* 121* LYMPHOPCT 5.2* 10.4* 13.0* MONOPCT 6.5 8.5 10.2* BASOPCT 0.2 0.2 0.5 NEUTROABS 17.8* 14.0* 8.9* Lab Results Component Value Date LIPASE 339 (H) 06/12/2022 No results found for: AMYLASE Micro: No results for input(s): COVID19 in the last 72 hours. 06/11/22 Pneumo PCR Neg 06/11/22 Resp Stain PMN, No org, NGTD 06/10/22 Abd abscess stain PMN GNC, NGTD 06/10/22 Leg/pneumo Neg 06/10 Resp Pcr (-) 06/10 Blood NGTD x2 06/07/22 4 Plex (-) Lines: PIV Radiography/Echo/Other: 06/10 CT Abd: IMPRESSION: 1. Acute pancreatitis with surrounding poorly defined and more confluent fluid particularly at the level of the pancreatic body and tail with extension along the anterior left pararenal space as well as into the lesser sac. Small pocket of loculated fluid along the greater curvature of the stomach measures 5.0 x 3.6 cm with distal extension. Fluid demonstrates borderline complexity. 2. Nonobstructing punctate right renal calculus. 3. Trace to small pleural effusions with mild bibasilar atelectasis/pneumonia. 4. Questionable trace gallbladder sludge/calculi. 06/10 CXR: IMPRESSION: Questionable retrocardiac opacity, please correlate with clinical concern for developing pneumonia. Low lung volumes with bronchovascular crowding. 06/07 CXR: FINDINGS/IMPRESSION: Limitations: Slightly limited by patient positioning Lines, tubes, and devices: None Cardiomediastinal silhouette: Heart size is within normal limits. Lungs/Pleura: Elevation of the right hemidiaphragm, similar to prior study. Borderline central pulmonary vascular congestion. No consolidation, sizable pleural effusions, or pneumothorax. Osseous structures: Degenerative spondylosis in the visualized spine. 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 Soft tissues: No soft tissue abnormality is detected. Antimicrobials,Start/End Dates: P/T 06/10- Vanc 06/12 x1 Impression: Pancreatic fluid collection/abscess, s/p drain 06/10. Acute pancreatitis EDWARDO resolved L pulm infiltrate, ? Fluid/atelectasis, less likely pneumonia Hx TBI/Stroke, R LE weakness Plan: Patient with pancreatic fluid collection in setting of acute pancreatitis. With organisms seen on stain, it is appropraite to treat as pancreatic abscess. Stains with GN cocci, which is possible, and also possible to be anaerobe, but would be a bit less common. Asking micro to verify the morphology. (Micro just update to no orgs seen). Has moist vocal quality and questionable infiltrate L that is more prominent between 06/07 and 06/10 films. Evaluation has been largely negative, and suspect this is more fluid/atelectasis. Maintain pip-candelaria for now. Dose vanc x1. F/U cultures and adjust antimicrobials as needed. Duration and optimized antimicrobial regimen to be determined pending culture and source control. Total time 75 minutes on this day of encounter includes counseling, coordinating plan of care, record and documentation review before and after visit including documentation and time not explicitly included on EMR time stamp for accounting for open encounter. Danielle Pastrana MD, FACP, FIDSA Associated Order(s): Inpatient consult to Gastroenterology Images from the original note were not included. GI CONSULTATION Patient: Moises Madrid : 1960 Primary Care Physician: Demetrius Fenton Inpatient consult to Gastroenterology Consult performed by: Mani Cortez MD Consult ordered by: Mani Edgar DO REASON FOR CONSULTATION: Acute pancreatitis status post percutaneous drain HISTORY OF PRESENT ILLNESS: Moises Madrid is a 61 y.o. male with PMH below who presented to the ER complaining of chest pain. Patient lives in a [facility] secondary to traumatic brain injury and history of stroke with hemiplegia. Patient is a poor historian and so much of the history is from chart review and discussion with staff. Patient was having some substernal chest pain/pressure. This was associated with some shortness of breath. Denies any exacerbating relieving factors. In the ER labs showed: Sodium 134, potassium 6, BUN 41, creatinine 1.38, troponin negative x2, triglycerides elevated 240, WBC 10.4, hemoglobin 14.6, platelet 159, normal TSH. Chest x-ray showed no acute cardiopulmonary issues. Patient was admitted for further evaluation and management. During admission patient was noted to have some abdominal pain and therefore CT scan was performed. CT abdomen/pelvis showed: Acute pancreatitis with surrounding poorly defined and more confluent fluid particularly at the level of the pancreas body and tail with extension along the anterior left pararenal space as well as into the lesser sac. Small pocket of loculated fluid along the greater curvature of the stomach measures 5 cm with distal extension. Fluid demonstrates borderline complexity. Nonobstructing punctate right renal calculi. Trace to small pleural effusions with mild bibasilar atelectasis/pneumonia. Questionable trace gallbladder sludge, calculi. GI was consulted for pancreatitis PAST MEDICAL HISTORY: Past Medical History: Diagnosis Date Anxiety Ataxia Bipolar disorder (HCC) Chronic pain Constipation Contracture, right hand Depression Dysphagia Dysphagia Dysphonia Edema GERD (gastroesophageal reflux disease) Headache Hemiplegia (CMS/HCC) (HCC) Hyperlipidemia Hypertension Insomnia Muscle weakness Neuropathy TBI (traumatic brain injury) PAST SURGICAL HISTORY: Past Surgical History: Procedure Laterality Date CRANIOTOMY FAMILY HISTORY: No family history on file. SOCIAL HISTORY: TOBACCO: reports that he has never smoked. He has never used smokeless tobacco. ETOH: reports no history of alcohol use. DRUGS: reports no history of drug use. Medications: Prior to Admission medications Medication Sig Start Date End Date Taking? Authorizing Provider cloNIDine (Catapres) 0.[address] 0.3 mg on the skin 1 (one) time per week. Yes Historical Provider, acetaminophen (Tylenol) 325 MG tablet Take 650 mg by mouth every 4 hours as needed for mild pain (1-3). Historical Provider, albuterol (2.5 MG/3ML) 0.083% nebulizer solution Take by nebulization every 3-4 hours as needed for wheezing. Historical Provider, ARIPiprazole (Abilify) 5 MG tablet Take 5 mg by mouth daily. Historical Provider, aspirin 81 MG EC tablet Take 81 mg by mouth daily. Historical Provider, atorvastatin (Lipitor) 40 MG tablet Take 40 mg by mouth Nightly. Historical Provider, cholecalciferol (Vitamin D3) 1.25 MG (74283 UT) tablet Take by mouth 1 (one) time per week. Historical Provider, clobetasol (Temovate) 0.05 % cream Apply topically 2 times daily. Historical Provider, dextromethorphan 15 MG/5ML syrup Take 10 mL by mouth as needed for cough. Historical ProviderMD divalproex (Depakote ER) 500 MG 24 hr tablet Take 500 mg by mouth Nightly. Historical ProviderMD Docusate Sodium (DSS) 100 MG capsule Take 100 mg by mouth daily. Historical ProviderMD famotidine (Pepcid) 20 MG tablet Take 20 mg by mouth every morning. Historical ProviderMD famotidine (Pepcid) 40 MG tablet Take 40 mg by mouth in the morning. Historical ProviderMD gabapentin (Neurontin) 100 MG capsule Take 200 mg by mouth 2 times daily. Historical ProviderMD gabapentin (Neurontin) 300 MG capsule Take 300 mg by mouth Nightly. Historical ProviderMD glucosamine-chondroitin 500-400 MG tablet Take 1 tablet by mouth in the morning and 1 tablet in the evening. Historical ProviderMD guaiFENesin (Mucinex) 600 MG 12 hr tablet Take 1,200 mg by mouth 2 times daily. Do not crush, chew, or split. Historical ProviderMD HYDROcodone-acetaminophen ([place]) 5-325 MG tablet Take 1 tablet by mouth every 6 hours as needed. Historical ProviderMD ketoconazole (NIZOral) 2 % cream Apply topically 2 times daily. Historical Provider, lisinopril 20 MG tablet Take 40 mg by mouth daily. Historical ProviderMD melatonin 5 MG tablet Take 3 mg by mouth Nightly. Historical ProviderMD memantine (Namenda) 10 MG tablet Take 10 mg by mouth 2 times daily. Historical ProviderMD metoprolol tartrate (Lopressor) 25 MG tablet Take 25 mg by mouth 2 times daily. Historical ProviderMD mineral oil-hydrophilic petrolatum (Aquaphor) ointment Apply topically if needed for dry skin. Historical ProviderMD [place]-3 Fatty Acids (Fish Oil) 1000 MG capsule delayed-release Take 2,000 mg by mouth. Historical ProviderMD potassium chloride CR (Klor-Con M20) 20 MEQ ER tablet Take 40 mEq by mouth daily. Do not crush or chew. Historical ProviderMD spironolactone (Aldactone) 100 MG tablet Take 100 mg by mouth daily. Historical ProviderMD tamsulosin (Flomax) 0.4 MG 24 hr capsule Take 0.4 mg by mouth daily. Historical ProviderMD tiZANidine (Zanaflex) 2 MG tablet Take 4 mg by mouth every 12 hours as needed for muscle spasms. Historical ProviderMD venlafaxine (Effexor) 75 MG tablet Take 75 mg by mouth 2 times daily. Historical ProviderMD @MEDCMED@ ALLERGIES: Allergies Allergen Reactions Hydralazine Unknown Sulfamethoxazole-Trimethoprim Unknown Temazepam Unknown Tramadol Unknown Clindamycin Rash Burn, rash Burn, rash REVIEW OF SYSTEMS: No fever, chills, or sweats. Normal appetite and weight. No DIGGS, visual disturbance, eye pain, jaundice, sore throat or mouth ulcers. No skin rash or itching. No CP, SOB, [place], cough or wheeze. No urinary frequency, urgency, hematuria, or dysuria. No myalgia, arthralgia, or joint swelling. No weakness, numbness, or confusion. GI per HPI. No polyuria, polydipsia, heat or cold intolerance. PHYSICAL EXAM: VS: BP 131/73 (BP Location: Left arm, Patient Position: Lying) Pulse (!) 111 Temp 37 C (98.6 F) (Oral) Resp 22 Ht 6' 2 (1.88 m) Wt 253 lb (115 kg) SpO2 94% BMI 32.48 kg/m Body mass index is 32.48 kg/m . GENERAL: Pleasant and NAD. HEENT: NCAT, PERRLA, EOMI, Scleral anicteric. Oropharhynx clear with no erythema or exudate. Neck supple, no cervical LAD or thyromegaly. CV: RRR, NL S1/S2, no murmurs. Distal pulses palpable and equal b/l. LUNGS: CTA b/l. Normal percussion and palpation. No W/R/R. Abdomen: + BS, soft, + TTP, non-distended. No hepatosplenomegaly. No mass felt. No rebound or guarding. No hernia. + Percutaneous drain with serosanguineous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 Resolved Ambulatory Problems Past Medical History: Diagnosis Date Anxiety Ataxia Bipolar disorder (HCC) Chronic pain Constipation Contracture, right hand Depression Dysphagia Dysphagia Dysphonia Edema GERD (gastroesophageal reflux disease) Headache Hemiplegia (CMS/HCC) (HCC) Hyperlipidemia Hypertension Insomnia Muscle weakness Neuropathy TBI (traumatic brain injury) PAST SURGICAL HISTORY Past Surgical History: Procedure Laterality Date CRANIOTOMY FAMILY HISTORY No family history on file. SOCIAL HISTORY Social History Tobacco Use Smoking status: Never Smokeless tobacco: Never Vaping Use Vaping Use: Never used Substance Use Topics Alcohol use: Never Drug use: Never ALLERGIES Allergies Allergen Reactions Hydralazine Unknown Sulfamethoxazole-Trimethoprim Unknown Temazepam Unknown Tramadol Unknown Clindamycin Rash Burn, rash Burn, rash MEDICATIONS No current facility-administered medications on file prior to encounter. Current Outpatient Medications on File Prior to Encounter Medication Sig Dispense Refill cloNIDine (Catapres) 0.[address] 0.3 mg on the skin 1 (one) time per week. acetaminophen (Tylenol) 325 MG tablet Take 650 mg by mouth every 4 hours as needed for mild pain (1-3). albuterol (2.5 MG/3ML) 0.083% nebulizer solution Take by nebulization every 3-4 hours as needed for wheezing. ARIPiprazole (Abilify) 5 MG tablet Take 5 mg by mouth daily. aspirin 81 MG EC tablet Take 81 mg by mouth daily. atorvastatin (Lipitor) 40 MG tablet Take 40 mg by mouth Nightly. cholecalciferol (Vitamin D3) 1.25 MG (26453 UT) tablet Take by mouth 1 (one) time per week. clobetasol (Temovate) 0.05 % cream Apply topically 2 times daily. dextromethorphan 15 MG/5ML syrup Take 10 mL by mouth as needed for cough. divalproex (Depakote ER) 500 MG 24 hr tablet Take 500 mg by mouth Nightly. Docusate Sodium (DSS) 100 MG capsule Take 100 mg by mouth daily. famotidine (Pepcid) 20 MG tablet Take 20 mg by mouth every morning. famotidine (Pepcid) 40 MG tablet Take 40 mg by mouth in the morning. gabapentin (Neurontin) 100 MG capsule Take 200 mg by mouth 2 times daily. gabapentin (Neurontin) 300 MG capsule Take 300 mg by mouth Nightly. glucosamine-chondroitin 500-400 MG tablet Take 1 tablet by mouth in the morning and 1 tablet in the evening. guaiFENesin (Mucinex) 600 MG 12 hr tablet Take 1,200 mg by mouth 2 times daily. Do not crush, chew, or split. HYDROcodone-acetaminophen ([place]) 5-325 MG tablet Take 1 tablet by mouth every 6 hours as needed. ketoconazole (NIZOral) 2 % cream Apply topically 2 times daily. lisinopril 20 MG tablet Take 40 mg by mouth daily. melatonin 5 MG tablet Take 3 mg by mouth Nightly. memantine (Namenda) 10 MG tablet Take 10 mg by mouth 2 times daily. metoprolol tartrate (Lopressor) 25 MG tablet Take 25 mg by mouth 2 times daily. mineral oil-hydrophilic petrolatum (Aquaphor) ointment Apply topically if needed for dry skin. [place]-3 Fatty Acids (Fish Oil) 1000 MG capsule delayed-release Take 2,000 mg by mouth. potassium chloride CR (Klor-Con M20) 20 MEQ ER tablet Take 40 mEq by mouth daily. Do not crush or chew. spironolactone (Aldactone) 100 MG tablet Take 100 mg by mouth daily. tamsulosin (Flomax) 0.4 MG 24 hr capsule Take 0.4 mg by mouth daily. tiZANidine (Zanaflex) 2 MG tablet Take 4 mg by mouth every 12 hours as needed for muscle spasms. venlafaxine (Effexor) 75 MG tablet Take 75 mg by mouth 2 times daily. REVIEW OF SYSTEMS Pertinent items are noted in HPI. Objective: BP 101/67 Pulse 93 Temp 36.8 C (98.2 F) (Oral) Resp 13 Ht 6' 2 (1.88 m) Wt 253 lb (115 kg) SpO2 94% BMI 32.48 kg/m PHYSICAL EXAM {in no apparent distress, well developed and well nourished, in no respiratory distress and acyanotic, and cooperative: SKIN ::no rashes or significant lesions,right lesser toes - 2nd toe (2cm x1cm x0.1cm)_and 3rd toe (1.5cm x1cm x0.1cm ) closed scab, no drainage, surrounding skin intact . Abdominal skin folds moist and pink blanchable Right posterior thigh 10cm x7cm x0.1cm dry scaling skin mixed with dermatitis and pink tissues , scant serosang drainage . Surrounding skin fragile . Left post thigh and perineum dry intact scaling skin rash skin damage . Normal effort, no respiratory distress, no cyanosis soft, nontender, and nondistended venous stasis dermatitis noted: LABS CBC: Lab Results Component Value Date WBC 9.2 06/08/2022 HGB 13.2 06/08/2022 HCT 38.5 (L) 06/08/2022 MCV 92.7 06/08/2022 PLT 140 06/08/2022 BMP: Lab Results Component Value Date NA 135 06/08/2022 K 5.2 (H) 06/08/2022 CL 107 06/08/2022 CO2 25 06/08/2022 BUN 35 (H) 06/08/2022 CREATININE 1.21 06/08/2022 PT/INR: No results found for: PROTIME, INR Prealbumin: No results found for: PREALBUMIN Albumin:No components found for: LABALBU Sed Rate:No results found for: SEDRATE Micro: No components found for: BC Assessment/Plan: Idiopathic chronic venous hypertension of right lower extremity with ulcer Right lesser toes - apply betadine daily HARI PVR ordered Venous insufficiency Elevate legs as much as possible Right posterior thigh Moisture associated skin damage from friction and other body fluids. - ET mix , xeroform and ABD pad. BID . Left post thigh and perineum - ET mix BID . Intertrigo, abdominal fold - miconazole powder BID Please follow up at [facility] wound [facility] [place] after hospital discharge. Thank you for the consult! I personally obtained the castro and critical portions of the history and physical exam. I reviewed the labs, imaging studies, and electronic medical record. I reviewed the chart documentation and discussed the patient with treatment team members. I have edited the note to reflect my clinical findings and my assessment and plan. Please note, the time of this note does not reflect the time I saw this patient today, but the time of this documentaton. Portions of this note including HPI, ROS, impression/plan, and examination may have been copied forward from admission to today as to provide important historical information essential in contributing to medical decision making. Documentation has been reviewed and edited as necessary to support clinical decision making for today's visit and to reflect my own independent evaluation of this patient. Decision making for today's visit and to reflect my own independent evaluation of this patient. Associated Order(s): IP CONSULT TO CARDIOLOGY Images from the original note were not included. CARDIOLOGY CONSULTATION Patient Name: Moises Madrid : 1960 Reason for Consultation: Chest pain History of Present Illness: Moises Madrid is a 61 yo male admitted to [facility] after presenting to ED with Chest pain. CP is described in ED as constant, non-radiating, 7/10 centrally located pain. Troponin x3 <0.012. Past Medical History: has a past medical history of Anxiety, Ataxia, Bipolar disorder (HCC), Chronic pain, Constipation, Contracture, right hand, Depression, Dysphagia, Dysphagia, Dysphonia, Edema, GERD (gastroesophageal reflux disease), Headache, Hemiplegia (CMS/HCC) (HCC), Hyperlipidemia, Hypertension, Insomnia, Muscle weakness, Neuropathy, and TBI (traumatic brain injury). Surgical History: has a past surgical history that includes Craniotomy. Social History: reports that he has never smoked. He has never used smokeless tobacco. He reports that he does not drink alcohol and does not use drugs. Family History: family history is not on file. Medications: Prior to Admission medications Medication Sig Start Date End Date Taking? Authorizing Provider cloNIDine (Catapres) 0.[address] 0.3 mg on the skin 1 (one) time per week. Yes Historical Provider, acetaminophen (Tylenol) 325 MG tablet Take 650 mg by mouth every 4 hours as needed for mild pain (1-3). Historical Provider, albuterol (2.5 MG/3ML) 0.083% nebulizer solution Take by nebulization every 3-4 hours as needed for wheezing. Historical Provider, ARIPiprazole (Abilify) 5 MG tablet Take 5 mg by mouth daily. Historical Provider, aspirin 81 MG EC tablet Take 81 mg by mouth daily. Historical Provider, atorvastatin (Lipitor) 40 MG tablet Take 40 mg by mouth Nightly. Historical Provider, cholecalciferol (Vitamin D3) 1.25 MG (79525 UT) tablet Take by mouth 1 (one) time per week. Historical Provider, clobetasol (Temovate) 0.05 % cream Apply topically 2 times daily. Historical Provider, dextromethorphan 15 MG/5ML syrup Take 10 mL by mouth as needed for cough. Historical ProviderMD divalproex (Depakote ER) 500 MG 24 hr tablet Take 500 mg by mouth Nightly. Historical ProviderMD Docusate Sodium (DSS) 100 MG capsule Take 100 mg by mouth daily. Historical ProviderMD famotidine (Pepcid) 20 MG tablet Take 20 mg by mouth every morning. Historical ProviderMD famotidine (Pepcid) 40 MG tablet Take 40 mg by mouth in the morning. Historical ProviderMD gabapentin (Neurontin) 100 MG capsule Take 200 mg by mouth 2 times daily. Historical ProviderMD gabapentin (Neurontin) 300 MG capsule Take 300 mg by mouth Nightly. Historical ProviderMD glucosamine-chondroitin 500-400 MG tablet Take 1 tablet by mouth in the morning and 1 tablet in the evening. Historical ProviderMD guaiFENesin (Mucinex) 600 MG 12 hr tablet Take 1,200 mg by mouth 2 times daily. Do not crush, chew, or split. Historical ProviderMD HYDROcodone-acetaminophen ([place]) 5-325 MG tablet Take 1 tablet by mouth every 6 hours as needed. Historical Provider, ketoconazole (NIZOral) 2 % cream Apply topically 2 times daily. Historical ProviderMD lisinopril 20 MG tablet Take 40 mg by mouth daily. Historical ProviderMD melatonin 5 MG tablet Take 3 mg by mouth Nightly. Historical ProviderMD memantine (Namenda) 10 MG tablet Take 10 mg by mouth 2 times daily. Historical ProviderMD metoprolol tartrate (Lopressor) 25 MG tablet Take 25 mg by mouth 2 times daily. Historical ProviderMD mineral oil-hydrophilic petrolatum (Aquaphor) ointment Apply topically if needed for dry skin. Historical ProviderMD [place]-3 Fatty Acids (Fish Oil) 1000 MG capsule delayed-release Take 2,000 mg by mouth. Historical ProviderMD potassium chloride CR (Klor-Con M20) 20 MEQ ER tablet Take 40 mEq by mouth daily. Do not crush or chew. Historical ProviderMD spironolactone (Aldactone) 100 MG tablet Take 100 mg by mouth daily. Historical ProviderMD tamsulosin (Flomax) 0.4 MG 24 hr capsule Take 0.4 mg by mouth daily. Historical ProviderMD tiZANidine (Zanaflex) 2 MG tablet Take 4 mg by mouth every 12 hours as needed for muscle spasms. Historical Provider, venlafaxine (Effexor) 75 MG tablet Take 75 mg by mouth 2 times daily. Historical Provider, aspirin, 81 mg, Oral, Daily enoxaparin, 40 mg, SubCUTAneous, Daily [START ON 06/09/2022] influenza vaccine split quadravalent, 0.5 mL, IntraMUSCular, Once Allergies: Hydralazine, Sulfamethoxazole-trimethoprim, Temazepam, Tramadol, and Clindamycin REVIEW OF SYSTEMS: Done from patient, family and medical record information. General ROS: denies constipation Psychological ROS: Positive for anxiety, depression, and Bipolar disorder Ophthalmic ROS: positive for - decreased vision with reading glasses ENT ROS: no epistaxis Allergy and Immunology ROS: As above Hematological and Lymphatic ROS: Bleeding issues negative Endocrine ROS: Negative for DM and thyroid disease. Positive for hyperlipidemia. Respiratory ROS: positive for - shortness of breath Cardiovascular ROS: positive for - chest pain Gastrointestinal ROS: no abdominal pain, change in bowel habits, or black or bloody stools Genito-Urinary ROS: no dysuria, trouble voiding, or hematuria Musculoskeletal ROS: Osteoarthritis negative Neurological ROS: TIA or stroke symptoms negative. H/o TBI affecting speech. PHYSICAL EXAMINATION: BP 110/58 Pulse 63 Temp 36.4 C (97.5 F) (Oral) Resp 18 Ht 6' 2 (1.88 m) Wt 253 lb 4.9 oz (115 kg) SpO2 93% BMI 32.52 kg/m General appearance: Stable, alert, no distress Skin: Skin color, texture, turgor normal. No rashes or lesions. Eyes: PERRLA HENT: no abnormalities noted. Neck supple, no bruits, no JVD Lungs: Air entry decreased bilaterally. No retractions or use of accessory muscles. scattered ronchi, no crackles & rales. Heart: RRR normal S1 and S2, no S3, SE murmur, S4 gallop no rub, pulses 2+ equal Abdomen: Abdomen soft, non-tender. BS normal. Extremities: Extremities normal. Hemiparesis. No deformities, 2+ edema, no skin discoloration. No cyanosis or clubbing noted to the nails. Musculoskeletal: Spine ROM limited. Muscular strength intact. Neuro: No gross abnormalities, carries on a normal conversation. Psych: Alert and oriented X3 Pertinent Labs: Labs: Lab Results Component Value Date MG 2.1 06/08/2022 Lab Results Component Value Date WBC 9.2 06/08/2022 HGB 13.2 06/08/2022 HCT 38.5 (L) 06/08/2022 MCV 92.7 06/08/2022 PLT 140 06/08/2022 Lab Results Component Value Date GLUCOSE 126 (H) 06/08/2022 CALCIUM 8.9 06/08/2022 NA 135 06/08/2022 K 5.2 (H) 06/08/2022 CO2 25 06/08/2022 CL 107 06/08/2022 BUN 35 (H) 06/08/2022 CREATININE 1.21 06/08/2022 BNP: Recent Labs 06/07/222311 BNP 49 PT/INR: No results for input(s): PROTIME, INR in the last 72 hours. APTT:No results for input(s): APTT in the last 72 hours. CARDIAC ENZYMES: Recent Labs 06/07/22231106/08/22 0408 06/08/22 0858 TROPONINI <0.012 <0.012 <0.012 FASTING LIPID PANEL: Lab Results Component Value Date HDL 37 (L) 06/07/2022 LDLCALC 70 06/07/2022 TRIG 240 (H) 06/07/2022 LIVER PROFILE:No results for input(s): AST, ALT in the last 72 hours. No lab exists for component: LABALBU Lab Results Component Value Date TSH 3.216 06/07/2022 ABGs: No results found for: PHART, PO2ART, [id number] INR: No results for input(s): INR in the last 72 hours. PRO-BNP: Recent Labs 06/07/222311 BNP 49 TSH: Lab Results Component Value Date TSH 3.216 06/07/2022 Cardiac Injury Profile: Recent Labs 06/08/22 0408 06/08/22 0858 TROPONINI <0.012 <0.012 Lipid Profile: Lab Results Component Value Date TRIG 240 (H) 06/07/2022 HDL 37 (L) 06/07/2022 LDLCALC 70 06/07/2022 CHOL 155 06/07/2022 Hemoglobin A1C: No results found for: HGBA1C EC06/07/22 ECG 12-LEAD (Preliminary) This result has not been signed. Information might be incomplete. Impression Sinus arrhythmia Left anterior fascicular block Probable left ventricular hypertrophy Lateral infarct, age indeterminate No previous ECG available for comparison ECHOCARDIOGRAM: No results found for this or any previous visit. Radiology: === 06/07/22 === XR CHEST 1 VIEW - Impression - FINDINGS/IMPRESSION: Limitations: Slightly limited by patient positioning Lines, tubes, and devices: None Cardiomediastinal silhouette: Heart size is within normal limits. Lungs/Pleura: Elevation of the right hemidiaphragm, similar to prior study. Borderline central pulmonary vascular congestion. No consolidation, sizable pleural effusions, or pneumothorax. Osseous structures: Degenerative spondylosis in the visualized spine. 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 Soft tissues: No soft tissue abnormality is detected. Report Dictated on Electronically Signed By: Cheko Chapa Electronically Signed Date/Time: 06/07/2022 11:27 PM EST Assessment: Principal Problem: Chest pain Active Problems: Obesity, Class I, BMI 30-34.9 Hyperlipidemia Essential hypertension, benign Depression Hemiplegia (CMS/HCC) (HCC) PLAN: Aggressive secondary risk factor management. Treat underlying disease drivers. Dobutamine stress test. Continue meds Reevaluate I discussed daignosis and treatment plans, the risks / benefits with patient in detail and he voiced understanding and agrees to proceed. I have spent more than 30 minutes face to face with Moises Madrid,and reviewing notes and laboratory data with greater than 50% of this time instructing and counseling the patient regarding my findings and recommendations and I have answered all questions as posed to me by Mr. Madrid. Thank you, Dr. Edgar for allowing me to participate in the care of this patient. SIGNATURE: Matteo Rios MD,FACC,FASNC,CCDS;RS PATIENT NAME: Moises Madrid DATE: 06/08/2022 PAGER: [phone] documented in this encounter [facility] 06-16-2022 Nurse Note Patient found to be very lethargic this AM. Needed repeated stimulation for responses. Alert to self and place. Temp 100.1F axillary. Tachycardic and Tachypnea. Work of breathing increased, abdominal breathing. Unable to take PO medications. Lungs coarse, unable to clear secretions. [facility] Dr. Nelson messaged. Dr. Nelson came to bedside, consulted ICU. Will await further orders. Patient stated he wants to , denial any active plan to hurt self. Patient said I am feeling very sad and lonely. Patient arrived to CT department from HICU 6 for Abcess fluid drain. Dr. Reaves[ain in to discuss procedure with patient and informed consent obtained. Patient assisted to CT table and place supine. phototypesetting equipment monitor on. 10 Fr drain inserted. Bandaid applied to site. Patient tolerated procedure well. Report called and [facility], report called back to RN. At 0802 Jhonny Costa notified of increased abd pain, abd distended, tender to palpation all quads. Hypoactive BS. No [id number]. Also increased need of 02, on RA pt 89% on 4l 94%. Labs, cxr and CT of ABD/pelvis. Attempted buckley x 2 16fr unsuccessful followed by 14fr coude, unsuccessful documented in this encounter [facility] 06-08-2022 Hospital Discharge instructions Becky Upton RN - 06/08/2022 10:39 AM EST Images from the original note were not included. Continuity of Care Form Patient Name: Moises Madrid : 1960 Admit date: 06/07/2022 Discharge date: 06/23/22 Code Status Order: Full Code Advance Directives: N Admitting Physician: Brenda Hagan PCP: No primary care provider on file. Discharging Nurse: Becky [place] Discharging [facility] Unit/Room#: 232-06/232-06 A Discharging Unit Phone Number: [phone] Emergency Contact: Extended Emergency Contact Information Primary Emergency Contact: Joslyn Hollins Relation: Other Past Surgical History: Past Surgical History: Procedure Laterality Date CRANIOTOMY Immunization History: Immunization History Administered Date(s) Administered Tdap 06/26/2020 Active Problems: Medical Problems Problem List * (Principal) Chest pain Chest pain, unspecified type Obesity, Class I, BMI 30-34.9 Hyperlipidemia Essential hypertension, benign Depression Hemiplegia (CMS/HCC) (HCC) Overview Signed 06/08/2022 8:35 AM by Matteo Rios MD right side Isolation/Infection: Contact CRE Nurse Assessment: Last Vital Signs: BP 110/58 Pulse 63 Temp 36.4 C (97.5 F) (Oral) Resp 18 Ht 1.88 m (6' 2) Wt 115 kg (253 lb 4.9 oz) SpO2 93% BMI 32.52 kg/m Last documented pain score (0-10 scale): Last Weight: Wt Readings from Last 1 Encounters: 06/08/22 115 kg (253 lb 4.9 oz) Mental Status: EARNEST Patient Mental Status: alert IV Access: EARNEST IV Access: None Nursing Mobility/ADLs: Walking Total assistance Transfer Total assistance Bathing Total assistance Dressing Total assistance Toileting Total assistance Feeding Minimal assistance General Scrap Worker Minimal assistance Med Delivery yes Wound Care Documentation and Therapy: Wound/Incision 06/08/22 Pressure Injury Toe (Comment which one) Anterior;Right (Active) Wound Image 06/08/22 0359 Site Assessment Painful;[place];Sloughing 06/08/22 042 Drainage Amount Scant 06/08/22 0426 Treatments Other (Comment) 06/08/22 042 Primary Dressing Open to air 06/08/22 0426 Number of days: 0 Wound/Incision 06/08/22 Other (comment) Abdominal fold Circumferential (Active) Site Assessment Blanchable erythema 06/08/22 0426 Odor None 06/08/22 0426 Drainage Amount None 06/08/22 0426 Treatments Moisture barrier ointment 06/08/22 042 Primary Dressing Open to air 06/08/22 042 Number of days: 0 Wound/Incision 06/08/22 Pressure Injury Buttock Right;Posterior;Lower (Active) Wound Image 06/08/22 0425 Site Assessment Sloughing 06/08/22 0426 Primary Dressing Open to air 06/08/22 042 Number of days: 0 Wound/Incision 06/08/22 Pressure Injury Buttock Left;Lower;Posterior (Active) Wound Image 06/08/22 0424 Site Assessment Intact 06/08/22 0426 Drainage Amount None 06/08/22425 Primary Dressing Open to air 06/08/22 042 Number of days: 0 Wound/Incision 06/08/22 Pressure Injury Perineum Medial (Active) Wound Image 06/08/22 0426 Site Assessment Blanchable erythema 06/08/22425 Drainage Amount None 06/08/22425 Primary Dressing Open to air 06/08/22 042 Number of days: 0 Elimination: Continence: Bowel: yes Bladder: no Urinary Catheter: Insertion date: 06/10/22 Colostomy/Ileostomy/Ileal Conduit: None Date of Last BM: 06/22/2022 Intake/Output Summary (Last 24 hours) at 06/08/2022 1039 Last data filed at 06/08/2022 0529 Gross per 24 hour Intake -- Output 650 ml Net -650 ml I/O last 3 completed shifts: In: - (0 mL/kg) Out: 650 (5.7 mL/kg) [Urine:650 (0.2 mL/kg/hr)] Weight: 114.9 kg Safety Concerns: at risk for falls Impairments/Disabilities: contractures - right hand Nutrition Therapy: Current Nutrition Therapy: Oral nutrition supplement: high protein pudding twice a day Routes of Feeding: oralt Liquids: nectar thick liquids Daily Fluid Restriction: no Last Modified Barium Swallow with Video (Video Swallowing Test): not done Treatments at the Time of Hospital Discharge: Respiratory Treatments: Oxygen Therapy: is not on home oxygen therapy. Ventilator: No ventilator support Rehab Therapies: physical therapy, occupational therapy, and nursing Weight Bearing Status/Restrictions: no restriction Other Medical Equipment (for information only, NOT a DME order): bedside commode and walker Other Treatments: Patient's personal belongings (please select all that are sent with patient): none RN SIGNATURE: MANAGEMENT/SOCIAL WORK SECTION Inpatient Status Date: Readmission Risk Assessment Score: Predictive Model Details Model IP RISK OF UNPLANNED READMISSION [[id number]] is not released. No score information can be retrieved Discharging to Facility/ Agency Name: [facility] Address: [place] Fax: Dialysis Facility (if applicable) Name: Address: Dialysis Schedule: Phone: Fax: [employer] signature: ICIAN SECTION Prognosis: poor Condition at Discharge: stable Rehab Potential (if transferring to Rehab): poor Recommended Labs or Other Treatments After Discharge: Physician Certification: I certify the above information and transfer of Moises Madrid is necessary for the continuing treatment of the diagnosis listed and that he requires retirement facility for greater than 30 days. Update Admission H&P: No change in H&P PHYSICIAN SIGNATURE: documented in this encounter [facility] 06-08-2022 History and physical note Images from the original note were not included. Attending History and Physical Admit Date: 06/07/2022 PCP: No primary care provider on file. CHIEF COMPLAINT: chest pain Reason for Admission: chest pain History Obtained From: patient HISTORY OF PRESENT ILLNESS: Moises is a 61 y.o. male with past medical history of TBI hemiplegia hypertension hyperlipidemia obesity BPH who presents with chief complaint listed above. Patient resides in a [facility] . Patient presents to the Ed due to chest pain . He states that it started at 1500 on 06/07 . He states that it was located in the substernal area . He describes the pain as someone grabbing his heart . He was given a PPI and had no relief . He states that he had shortness of breath no fever chills coughing nausea vomiting diarrhea . Patient had relief after ASA by EMS . In the Ed patient was afebrile Hr 77 RR 18 BP 107 /57 Lab data revealed sodium 134 potassium 6.0 BUN 41 Scr 1.38 Trop <0.012 EKG sinus arrhthymia WBC 10.4 HGB 14.6 PLT 159 COVID RSV FLU neg CXR borderline central pulmonary vascular congestion. Patient reported further resolution of chest pain with nitroglycerin and nitropaste Will admit for further evaluation and management. Past Medical History: Past Medical History: Diagnosis Date Anxiety Ataxia Bipolar disorder ([facility]) Chronic pain Constipation Contracture, right hand Depression Dysphagia Dysphagia Dysphonia Edema GERD (gastroesophageal reflux disease) Headache Hemiplegia ([facility]) Hyperlipidemia Hypertension Insomnia Muscle weakness Neuropathy TBI (traumatic brain injury) ([facility]) Past Surgical History: Past Surgical History: Procedure Laterality Date CRANIOTOMY Social History: Social History Socioeconomic History Marital status: Single Spouse name: Not on file Number of children: Not on file Years of education: Not on file Highest education level: Not on file Occupational History Not on file Tobacco Use Smoking status: Unknown Smokeless tobacco: Never Substance and Sexual Activity Alcohol use: Never Drug use: Never Sexual activity: Not on file Other Topics Concern Not on file Social History Narrative Not on file Social Determinants of Health Financial Resource Strain: Not on file Food Insecurity: Not on file Transportation Needs: Not on file Physical Activity: Not on file Stress: Not on file Social Connections: Not on file Intimate Partner Violence: Not on file Housing Stability: Not on file Family History: No family history on file. Medications Prior to Admission: No current facility-administered medications on file prior to encounter. No current outpatient medications on file prior to encounter. Allergies: Not on File REVIEW OF SYSTEMS: Constitutional: Negative for fever, chills, activity change and unexpected weight change. HEENT: Negative for congestion, postnasal drip and sneezing. Eyes: Negative for itching and visual disturbance. Respiratory: Negative for apnea, cough, choking, chest tightness, +++shortness of breath, wheezing and stridor. Cardiovascular: +++chest pain. Gastrointestinal: Negative for nausea, vomiting, abdominal pain, diarrhea and blood in stool. Genitourinary: Negative for dysuria, frequency and flank pain. Musculoskeletal: Negative for myalgias and joint swelling. Skin: Negative for rash. Neurological: Negative for dizziness, tremors, seizures, syncope, facial asymmetry, speech difficulty, weakness, numbness and headaches. Hematological: Negative for adenopathy. Psychiatric/Behavioral: Negative for suicidal ideas, behavioral problems, self-injury and dysphoric mood. Vitals: BP 94/62 (BP Location: Right arm, Patient Position: Lying) Pulse 54 Temp 36.9 C (98.4 F) (Oral) Resp 16 Ht 6' 1 (1.854 m) Wt 251 lb (114 kg) SpO2 98% BMI 33.12 kg/m BMI Classification: Obese (BMI 30.0-39.9) Pulse Ox: SpO2 Av.4 % Min: 95 % Max: 99 % Supplemental O2: PHYSICAL EXAM: General appearance: No apparent distress, appears stated age and cooperative with exam. HEENT: Normal cephalic, atraumatic without obvious deformity. Pupils equal, round, and reactive to light. Extra ocular muscles intact. Conjunctivae/corneas clear. Neck: Supple, with full range of motion. No jugular venous distention. Trachea midline. No lymphadenopathy. Respiratory: Normal respiratory effort. Clear to auscultation, bilaterally without Rales/Wheezes/Rhonchi. Cardiovascular: no chest tenderness on palpation Regular rate and rhythm with normal S1/S2 without murmurs, rubs or gallops. Abdomen: Soft, non-tender, non-distended with normal bowel sounds. No rebound or guarding. Musculoskeletal: No clubbing, cyanosis or edema bilaterally. Full range of motion without deformity, +2 peripheral pulses in all extremities. Skin: Skin color, texture, turgor normal. No rashes or lesions. Neurologic: Neurovascularly intact without any focal sensory/motor deficits. Cranial nerves: II-XII intact, grossly non-focal. Psychiatric: Alert and oriented, thought content appropriate, normal insight. DATA: CBC: Recent Labs 06/07/22 2312 WBC 10.4 RBC 4.70 HGB 14.6 HCT 43.7 MCV 93.0 RDW 13.6 PLT 159 BMP: Recent Labs 06/07/22 2312 NA 134* K 6.0* CL 105 CO2 25 BUN 41* CREATININE 1.38* GLUCOSE 137* CALCIUM 9.6 ANIONGAP 4 LIVER PROFILE:No results for input(s): AST, ALT, BILITOT, ALKPHOS, PROT in the last 72 hours. No lab exists for component: LABALBU PT/INR: No results for input(s): PROTIME, INR in the last 72 hours. CARDIAC ENZYMES: Recent Labs 06/07/22 2312 TROPONINI <0.012 Procalcitonin: No results found for: PROCAL Urine Culture: No results found for this or any previous visit. COVID-19 PCR: No results for input(s): COVID19 in the last 72 hours. I reviewed: [x] laboratory results [x] radiographic results At the time of today's encounter. Pt was advised of the results. Cardiomediastinal silhouette: Heart size is within normal limits. Lungs/Pleura: Elevation of the right hemidiaphragm, similar to prior study. Borderline central pulmonary vascular congestion. No consolidation, sizable pleural effusions, or pneumothorax. Osseous structures: Degenerative spondylosis in the visualized spine. 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 Soft tissues: No soft tissue abnormality is detected. Assessment Data: (CAT1) EKG reviewed & showed NSR as interpreted by me. (LOW: 2x CAT1 or independent historian MOD: 3x CAT1 or 1x CAT3 EXTENSIVE: 3x CAT1 and 1x CAT3) Acute, acute on chronic, unstable/uncontrolled chronic problems/diagnoses: Chest pain : Trop <0.012 CXR revealed borderline pulmonary vascular congestion Patient reports resolution with nitroglycerin and nitropaste EKG sinus arrthymia. Patient has a heart score 4 . Admit inpatient vitals telemetry trend trop 2D echo ASA nitroglycerin cardiology consult Hyperkalemia : 6.0 on admission EKG revealed no acute changes , Patient received lowering cocktail . Per review of med list patient takes Lisinopril and potassium , likely etiology Acute kidney injury: Scr 1.38 baseline 0.9 urine studies C/w IVF likely sec to use of lasix lisinopril and ibuprofen Pulmonary vascular congestion ; as seen on CXR BNP pending 2d echo Stable chronic problems affecting care, new non-acute diagnoses: Hypertension Hold Lisinopril C/w Lopressor Clonidine Norvasc Hyperlipidemia : Lipitor History of TBI with hemiplegia : Namenda Chronic headache : zonisamide depakote Mood disorder : Seroquel Effexor abilify Plan As a result of the above findings & factors, the following mgmt was pursued: - - am labs, replace lytes prn - PT/OT/CM/SW - delirium precautions: increase activity - DVT prophylaxis: enoxaparin and encourage ambulation Complexity: Acute illness with systemic symptoms (MOD). Risk: Drug therapy requiring intensive monitoring (HIGH). Advance Directive: Full Code Anticipated Discharge - Date - - Location - Home - Pending the following - chest pain Total time spent (which include face to face and non face to face encounters) : greater than 30 minutes Extended Emergency Contact Information Primary Emergency Contact: Joslyn Hollins Relation: Other [facility] [place] documented in this encounter [facility] 06-07-2022 Emergency department Note Pt states no relief after 1 nitroglycerin. However, due to pt pressure, unable to continue to administer. Dr. Smallwood notified, new orders placed. Karen Patel RN 06/07/222342 Emergency Department Encounter [facility] ED Patient: Moises Madrid : 1960 Date of Evaluation: 06/07/2022 ED Supervising Physician: Tresa Smallwood DO I independently examined and evaluated Moises Madrid. This will serve as my Supervisory note and shared attestation. I did perform a substantive portion of the visit including all aspects of the Medical Decision Making. I wore appropriate PPE for the entirety of this encounter. In brief, Moises Madrid is a 61 y.o. male medical history of hypertension, hyperlipidemia, obesity, TBI with residual speech difficulty/hemiplegia that presents to the emergency department with constant nonradiating central chest heaviness since 3 PM this afternoon. No relief despite dispensed PPI at [facility]. Given 481 mg aspirins by EMS with improvement of chest pain from 7 out of 10 to 5 out of 10. Denies shortness of breath, nausea, lightheadedness. Denies lower extremity swelling or calf pain. Focused exam: BP 94/56 (BP Location: Right arm, Patient Position: Sitting) Pulse 82 Temp 36.9 C (98.4 F) (Oral) Resp 16 Ht 1.854 m (6' 1) Wt 114 kg (251 lb) SpO2 97% BMI 33.12 kg/m Constitutional: Alert, awake Lungs: CTABL, no wheezing, no rales Heart: RRR , no murmurs, equal distal pulses to extremities, no peripheral edema/erythema/warmth of LEs b/l. Vascular: radial 2/4 equal B/L, dp 2/4 equal B/L Brief ED course/MDM: 61-year-old male presenting from [facility] for constant central nonradiating chest pain since 3 PM this afternoon that was not relieved with PPI. Some relief with aspirin administered by EMS. Negative review of systems. History of CAD risk factors inclusive of hypertension, hyperlipidemia, obesity. Vital signs stable, afebrile. Patient nontoxic-appearing. Chest pain further improved with sublingual nitroglycerin and nitroglycerin paste. EKG sinus arrhythmia without ischemic changes, no prior available for comparison. Initial troponin negative. Labs and imaging otherwise with EDWARDO and hyperkalemia. Potassium 6. No hyperkalemic changes on EKG. Given insulin/dextrose and bicarb. Heart score 4. Will admit to telemetry for chest pain rule out. Diagnostic tests considered but not performed: Low suspicion for PE given description of chest pain is pressure-like with absence of lower extremity symptoms, no tachycardia, no hypoxia Diagnostics interpreted by me: Xray(s) chest without acute cardiopulmonary process Discussions with other clinicians: Admitting team IMS Chronic conditions impacting care: Hypertension and hyperlipidemia, obesity ED Medications managed: Medications nitroglycerin (Noel-Bid) 2 % ointment 0.5 inch (0.5 inches TransDERmal Given 06/07/22 2340) sodium chloride 0.9 % bolus 1,000 mL (has no administration in time range) glucose oral gel 15 g (has no administration in time range) dextrose 50 % solution 12.5 g (has no administration in time range) glucagon (human recombinant) injection 1 mg (has no administration in time range) dextrose 5 % infusion (has no administration in time range) nitroglycerin (Nitrostat) SL tablet 0.4 mg (0.4 mg SubLINGual Given 06/07/22 2332) insulin regular (HumuLIN R,NovoLIN R) injection 5 Units (5 Units IntraVENous Given 06/08/22 0000) And dextrose 50 % solution 25 g (25 g IntraVENous Given 06/08/22 0029) sodium bicarbonate 8.4 % injection 50 mEq (50 mEq IntraVENous Given 06/08/22 0029) All diagnostic, treatment, and disposition decisions were made by myself in conjunction with the [facility]. For all further details of the patient's emergency department visit, please see their documentation. Total critical care time today provided was at least 15 minutes. This excludes seperately billable procedure. Critical care time provided for chest pain requiring nitroglycerin/nitroglycerin paste as well as hyperkalemia requiring treatment that required close evaluation and/or intervention with concern for patient decompensation. (Comment: Please note this report has been produced using speech recognition software and may contain errors related to that system including errors in grammar, punctuation, and spelling, as well as words and phrases that may be inappropriate. If there are any questions or concerns please feel free to contact the dictating provider for clarification.) Tresa Smallwood DO Acute Care [facility] Tresa Smallwood DO 06/07/22 2343 Tresa Smallwood DO 06/08/22 0049 EMERGENCY DEPARTMENT ENCOUNTER Pt Name: Moises Madrid Birthdate 1960 Date of evaluation: 06/07/2022 ED Provider: Jennie Castelan PA-C EDcare was supervised by Dr. Smallwood who independently examined and evaluated the patient. Please see their attestation note for further details. CHIEF COMPLAINT Chief Complaint Patient presents with Chest Pain Pt states chest pain started around 3-4 oclock today, per EMS [facility] thought it was GERD so they gave him an antacid. Pt states pain did not get any better, pt describes pain as heaviness in the center of his chest. Pt states his pain was a 7/10 then squad gave baby ASA and pain is not a 5/10. HISTORY OF PRESENT ILLNESS (Location/Symptom, Timing/Onset, Context/Setting, Quality, Duration, Modifying Factors, Severity) Note limiting factors. I wore appropriate PPE for the entirety of this encounter. HPI Moises Madrid is a 61 y.o. male who presents to the emergency department complaining of a dull midsternal chest pain that is nonradiating that started around 3 PM this afternoon. Patient initially thought it was GERD. His nurses at the nursing facility gave him a PPI which did not seem to help the pain. They then called 911 which prompted his ER presentation. Patient initially endorsed 7 out of 10 pain after 4 baby aspirin endorsed 5 out of 10 pain. Denies any cardiac history. Endorses history of hypertension. Endorses that his brother recently had a heart attack. Denies any history of hyperlipidemia, diabetes. Patient does have history of a TBI with left him with hemiaplasia and dysarthria. Patient denies any leg swelling, unilateral leg swelling, history of blood clots or recent travel. Denies any recent illnesses, nasal congestion, shortness of breath. Nursing Notes were reviewed. Limitations to history: None Outside historians: None REVIEW OF SYSTEMS Review of Systems Pertinent positives and negatives as per HPI. PAST MEDICAL HISTORY Past Medical History: Diagnosis Date Anxiety Ataxia Bipolar disorder ([facility]) Chronic pain Constipation Contracture, right hand Depression Dysphagia Dysphagia Dysphonia Edema GERD (gastroesophageal reflux disease) Headache Hemiplegia (CMS/HCC) Hyperlipidemia Hypertension Insomnia Muscle weakness Neuropathy TBI (traumatic brain injury) ([facility]) SURGICAL HISTORY Past Surgical History: Procedure Laterality Date CRANIOTOMY CURRENT MEDICATIONS Previous Medications No medications on file ALLERGIES Patient has no allergy information on record. FAMILY HISTORY No family history on file. SOCIAL HISTORY Social History Socioeconomic History Marital status: Single Tobacco Use Smoking status: Unknown Smokeless tobacco: Never Substance and Sexual Activity Alcohol use: Never Drug use: Never SCREENINGS Rumsey Coma Scale Best Eye Response: Spontaneous Best Verbal Response: Oriented Best Motor Response: Follows commands Fanny Coma Scale Score: 15 HEART Score History: Moderately suspicious ECG: Non-specific repolarization disturbance Age: 45-64 Risk Factors: >2 risk factors or hx of atherosclerotic disease Troponin: Less than or equal to normal limit HEART Score: 5 PHYSICAL EXAM ED Triage Vitals [06/07/22 2259] Temp Heart Rate Resp BP 36.9 C (98.4 F) 77 18 -- SpO2 Temp Source Heart Rate Source Patient Position 99 % Oral Monitor -- BP Location FiO2 (%) -- -- Physical Exam GENERAL APPEARANCE: AxOx4, generally well-appearing 61-year-old male, no acute distress. Dysarthria present. HEAD: NC, AT EYES: EOMi, clear conjunctiva ENT: MMM, oropharynx clear. NECK: Supple without lymphadenopathy. No stiffness or restricted ROM. HEART: RRR , no murmurs, distal pulses present and equal in all 4 extremities, no peripheral edema/erythema/warmth of LEs b/l. Chest pain not reproducible to palpation. Not exacerbated by movement. Not exacerbated by breathing. LUNGS: CTAB. No wheezing, crackles, or rhonchi ABDOMEN: Soft, nontender and nondistended. No rebound or guarding. BACK: No CVAT, no obvious deformity. EXTREMITIES: Without cyanosis, clubbing or edema. No lower extremity edema. Vascular dermatitis present consistent with history of peripheral vascular disease. NEUROLOGICAL: Grossly nonfocal. Alert and oriented, moving all 4 extremities. CN not formally tested but appear grossly intact. Observed to ambulate with normal gait. Skin: Exposed skin warm and dry without any rash. DIAGNOSTIC RESULTS RADIOLOGY (Per Emergency Physician): Interpretation per the Radiologist below, if available at the time of this note: XR chest 1 view Final Result FINDINGS/IMPRESSION: Limitations: Slightly limited by patient positioning Lines, tubes, and devices: None Cardiomediastinal silhouette: Heart size is within normal limits. Lungs/Pleura: Elevation of the right hemidiaphragm, similar to prior study. Borderline central pulmonary vascular congestion. No consolidation, sizable pleural effusions, or pneumothorax. Osseous structures: Degenerative spondylosis in the visualized spine. 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 Soft tissues: No soft tissue abnormality is detected. Report Dictated on Electronically Signed By: Cheko Chapa Electronically Signed Date/Time: 06/07/2022 11:27 PM EST LABS: Labs Reviewed CBC WITH AUTO DIFFERENTIAL - Abnormal Result Value Auto WBC 10.4 RBC 4.70 Hemoglobin 14.6 Hematocrit 43.7 MCV 93.0 MCH 31.1 MCHC 33.5 RDW 13.6 Platelets 159 MPV 9.8 nRBC 0.0 Neutrophils Relative 61.9 Lymphocytes Relative 25.7 Monocytes Relative 8.5 Eosinophils Relative 3.1 Basophils Relative 0.8 Neutrophils Absolute 6.4 Lymphocytes Absolute 2.7 Monocytes Absolute 0.9 (*) Eosinophils Absolute 0.3 Basophils Absolute 0.1 BASIC METABOLIC PANEL - Abnormal SODIUM 134 (*) POTASSIUM 6.0 (*) CHLORIDE 105 CARBON DIOXIDE 25 UREA NITROGEN 41 (*) CREATININE 1.38 (*) GLUCOSE 137 (*) CALCIUM 9.6 ANION GAP 4 eGFR 58.9 (*) Narrative: Slightly Hemolyzed SARS-COV-2, FLU A/B, AND RSV COMBO - Normal SARS-CoV-2 Not Detected Respiratory Syncytial Virus Not Detected Influenza A Not Detected Influenza B Not Detected Narrative: Methodology: real-time, RT-PCR The SARS-CoV-2, Flu A/B, and RSV Combo assay is intended for in vitro diagnostic use under the FDA Emergency Use Authorization (EUA). This test has not been FDA cleared or approved. In compliance with this authorization, please visit www.fda.gov/media/915181/download or www.fda.gov/media/699091/download to access the applicable information sheets. TROPONIN I - Normal TROPONIN I <0.012 Narrative: Patients with high levels of Biotin oral intake (ie >5 mg/day) may have falsely decreased Troponin levels. POCT GLUCOSE METER POCT GLUCOSE METER POCT GLUCOSE METER POCT GLUCOSE METER POCT GLUCOSE METER POCT GLUCOSE METER POCT GLUCOSE METER POCT GLUCOSE METER All other labs were within normal range or not returned as of this dictation. EMERGENCY DEPARTMENT COURSE and DIFFERENTIAL DIAGNOSIS/MDM: Vitals: Vitals: 06/07/22 2303 06/07/22 2332 06/07/22 2342 06/08/22 0057 BP: 107/57 106/75 94/56 92/61 BP Location: Right arm Right arm Right arm Right arm Patient Position: Sitting Sitting Sitting Lying Pulse: 77 82 73 Resp: 16 16 16 Temp: TempSrc: SpO2: 95% 97% 98% Weight: Height: Medications nitroglycerin (Noel-Bid) 2 % ointment 0.5 inch (0.5 inches TransDERmal Given 06/07/222339) glucose oral gel 15 g (has no administration in time range) dextrose 50 % solution 12.5 g (has no administration in time range) glucagon (human recombinant) injection 1 mg (has no administration in time range) dextrose 5 % infusion (has no administration in time range) nitroglycerin (Nitrostat) SL tablet 0.4 mg (0.4 mg SubLINGual Given 06/07/22 2532) sodium chloride 0.9 % bolus 1,000 mL (1,000 mL IntraVENous New Bag 06/08/22) insulin regular (HumuLIN R,NovoLIN R) injection 5 Units (5 Units IntraVENous Given 06/08/22) And dextrose 50 % solution 25 g (25 g IntraVENous Given 06/08/22 002) sodium bicarbonate 8.4 % injection 50 mEq (50 mEq IntraVENous Given 06/08/2228) In brief, Moises Madrid ayad 61 y.o. male who presented to the emergency department complaining of midsternal chest pain that started around 3 PM. Please HPI Old records were obtained in patient's EMR which revealed migraines, hypertension, esophageal reflux, hyperlipidemia, hemiplegia, history of TBI. Upon examination, the patient did not appear to septic or toxic. No evidence of focal deficits or weakness. Vital signs stable, patient afebrile. Labs and imaging were ordered and reviewed. CBC does not reveal any evidence of leukocytosis or anemia. Platelet count within normal limits. BMP reveals slight hyponatremia at 134, hyperkalemia at 6 with evidence of EDWARDO with a GFR 58.9 and creatinine of 1.38. Patient was given 5 of insulin and 50 of dextrose along with an amp of sodium bicarb for hyperkalemia. Troponin unremarkable less than 0.012. Respiratory viral panel is negative for COVID-19, RSV and influenza. Radiographs were interpreted by the radiologist and chest x-ray remarkable forElevation of the right hemidiaphragm, similar to prior study. Borderline central pulmonary vascular congestion. No consolidation, sizable pleural effusions, or pneumothorax. Patient has a heart score of 5 secondary to suspicious history, EKG findings, age and 2+ risk factors including hypertension, hypercholesterolemia and obesity with initial unremarkable troponin. Upon arrival to the ER patient was given a dose of nitroglycerin sublingual which did not touch patient's pain, still endorsed 5 out of 10 chest pain. Patient was then ordered Nitro-Bid paste which relieved patient's chest pain. The CXR assists in r/o Pneumonia, Pneumothorax, Esophageal Tears. There are no signs of Pericarditis, Endocarditis, or Myocarditis based on risk factor analysis. There is no fever. Historically not abrupt in onset, tearing or ripping, pulses symmetric, low suspicion for aortic dissection. HEART Score: 5 Patient will be admitted in stable condition for cardiology work up, trending troponins and electrolyte monitoring. PROCEDURES: Unless otherwise noted below, none Procedures CRITICAL CARE TIME None FINAL IMPRESSION 1. Chest pain, unspecified type 2. Hyperkalemia 3. EDWARDO (acute kidney injury) (CMS/HCC) ([facility]) DISPOSITION Observation 06/08/2022 01:18:58 AM PATIENT REFERRED TO: No follow-up provider specified. DISCHARGE MEDICATIONS: New Prescriptions No medications on file (Comment: Please note this report has been produced using speech recognition software and may contain errors related to that system including errors in grammar, punctuation, and spelling, as well as words and phrases that may be inappropriate. If there are any questions or concerns please feel free to contact the dictating provider for clarification.) Jennie Castelan PA-C (electronically signed) Emergency Medicine Provider Jennie Castelan PA-C 06/08/22 0127 documented in this encounter [facility] Evaluation note Diagnosis Cellulitis of right lower extremity- Primary Cellulitis and abscess of leg, except foot Elevated lactic acid level Other nonspecific abnormal serum enzyme levels documented [facility] Work Phone: Evaluation noteNo assessment information available [facility] Work Phone: Evaluation note* Diagnosis Calculus of gallbladder without cholecystitis without obstruction- Primary Peripancreatic abscess Acute pancreatitis History of traumatic brain injury Personal history of traumatic brain injury Epigastric pain Abdominal pain, epigastric documented [facility]* Diagnosis Calculus of gallbladder without cholecystitis without obstruction- Primary Peripancreatic abscess Acute pancreatitis History of traumatic brain injury Personal history of traumatic brain injury Epigastric pain Abdominal pain, epigastric [facility] Diagnosis Calculus of gallbladder without cholecystitis without obstruction- Primary Peripancreatic abscess Acute pancreatitis History of traumatic brain injury Personal history of traumatic brain injury Epigastric pain Abdominal pain, epigastric Calculus of gallbladder without cholecystitis without obstruction Acute pancreatitis without necrosis or infection, unspecified Epigastric pain Abdominal pain, epigastric documented [facility]* Diagnosis Peripheral vascular disease, unspecified (HCC)- Primary Peripheral vascular disease, unspecified Venous insufficiency (chronic) (peripheral) Unspecified venous (peripheral) insufficiency 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) Calculus of gallbladder without cholecystitis without obstruction Acute pancreatitis without necrosis or infection, unspecified Epigastric pain Abdominal pain, epigastric documented in this encounter [facility] note* Diagnosis Preop testing- Primary Unspecified pre-operative examination Calculus of gallbladder without cholecystitis without obstruction Acute pancreatitis without necrosis or infection, unspecified Epigastric pain Abdominal pain, epigastric documented in this encounter [facility] note* Diagnosis Calculus of gallbladder without cholecystitis without obstruction Peripancreatic abscess Acute pancreatitis Calculus of gallbladder without cholecystitis without obstruction Acute pancreatitis without necrosis or infection, unspecified Epigastric pain Abdominal pain, epigastric documented in this encounter [facility] note* Diagnosis Encounter for postoperative care- Primary [facility] Diagnosis Passive suicidal ideations- Primary documented in this [facility]* Diagnosis Chronic daily headache- Primary Headache Intractable chronic migraine without aura and with status migrainosus Chronic migraine without aura, with intractable migraine, so stated, with status migrainosus Traumatic brain injury with loss of consciousness, sequela (HCC) Insomnia, unspecified type [facility] Diagnosis Cellulitis of right lower extremity- Primary Right lower quadrant abdominal pain Constipation, unspecified constipation type [facility] Diagnosis Lymphedema- Primary Other noninfectious lymphedema Venous insufficiency (chronic) (peripheral) Unspecified venous (peripheral) insufficiency Non-pressure chronic ulcer right lower leg, limited to breakdown skin (HCC) 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) Decreased mobility [facility]* Diagnosis Venous insufficiency (chronic) (peripheral)- Primary Unspecified venous (peripheral) insufficiency Lymphedema Other noninfectious lymphedema Non-pressure chronic ulcer right lower leg, limited to breakdown skin (HCC) 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) Decreased mobility [facility]* Diagnosis Venous insufficiency (chronic) (peripheral)- Primary Unspecified venous (peripheral) insufficiency Lymphedema Other noninfectious lymphedema Non-pressure chronic ulcer right lower leg, limited to breakdown skin (HCC) 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) Decreased mobility [facility] Diagnosis 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) Lymphedema Other noninfectious lymphedema Venous insufficiency (chronic) (peripheral) Unspecified venous (peripheral) insufficiency Non-pressure chronic ulcer right lower leg, limited to breakdown skin (HCC) [facility] Diagnosis 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) Venous insufficiency (chronic) (peripheral) Unspecified venous (peripheral) insufficiency Lymphedema Other noninfectious lymphedema [facility] Diagnosis 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)- Primary Venous insufficiency (chronic) (peripheral) Unspecified venous (peripheral) insufficiency Lymphedema Other noninfectious lymphedema [facility] Diagnosis 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)- Primary Venous insufficiency (chronic) (peripheral) Unspecified venous (peripheral) insufficiency Lymphedema Other noninfectious lymphedema Decreased mobility [facility] Diagnosis 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)- Primary Venous insufficiency (chronic) (peripheral) Unspecified venous (peripheral) insufficiency Lymphedema Other noninfectious lymphedema [facility] Diagnosis 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)- Primary Venous insufficiency (chronic) (peripheral) Unspecified venous (peripheral) insufficiency Lymphedema Other noninfectious lymphedema Decreased mobility [facility] Diagnosis 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)- Primary Venous insufficiency (chronic) (peripheral) Unspecified venous (peripheral) insufficiency Lymphedema Other noninfectious lymphedema Decreased mobility Cellulitis of left foot [facility]* Diagnosis 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)- Primary Venous insufficiency (chronic) (peripheral) Unspecified venous (peripheral) insufficiency Lymphedema Other noninfectious lymphedema Decreased mobility Cellulitis of left foot [facility]* Diagnosis 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)- Primary Venous insufficiency (chronic) (peripheral) Unspecified venous (peripheral) insufficiency Lymphedema Other noninfectious lymphedema Decreased mobility Non-pressure chronic ulcer right lower leg, limited to breakdown skin (HCC) [facility]* Diagnosis 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)- Primary Venous insufficiency (chronic) (peripheral) Unspecified venous (peripheral) insufficiency Lymphedema Other noninfectious lymphedema Decreased mobility Cellulitis of right lower leg [facility]* Diagnosis 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) [facility]* Diagnosis 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)- Primary Venous insufficiency (chronic) (peripheral) Unspecified venous (peripheral) insufficiency Lymphedema Other noninfectious lymphedema Decreased mobility [facility] Diagnosis 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)- Primary Venous insufficiency (chronic) (peripheral) Unspecified venous (peripheral) insufficiency Decreased mobility [facility]* Diagnosis 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)- Primary Venous insufficiency (chronic) (peripheral) Unspecified venous (peripheral) insufficiency Decreased mobility [facility]* Diagnosis 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)- Primary Venous insufficiency (chronic) (peripheral) Unspecified venous (peripheral) insufficiency Decreased mobility [facility]* Diagnosis 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)- Primary Venous insufficiency (chronic) (peripheral) Unspecified venous (peripheral) insufficiency Decreased mobility [facility]* Diagnosis 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)- Primary Venous insufficiency (chronic) (peripheral) Unspecified venous (peripheral) insufficiency Decreased mobility [facility]* Diagnosis Nonintractable headache, unspecified chronicity pattern, unspecified headache type- Primary [facility]* Diagnosis 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)- Primary Non-pressure chronic ulcer left lower leg, limited to breakdown skin (HCC) Venous insufficiency (chronic) (peripheral) Unspecified venous (peripheral) insufficiency Decreased mobility [facility] Diagnosis Chronic venous hypertension (idiopathic) with ulcer of right lower extremity (CODE) ([facility]) [I87.311]- Primary Non-pressure chronic ulcer of other part of right lower leg with fat layer exposed ([facility]) [L97.812] Chronic venous hypertension (idiopathic) with ulcer of left lower extremity (CODE) ([facility]) [I87.312] Non-pressure chronic ulcer of other part of left lower leg with fat layer exposed ([facility]) [L97.822] Peripheral venous insufficiency [I87.2] Unspecified venous (peripheral) insufficiency [facility]* Diagnosis Chest pain- Primary Unspecified chest pain Chest pain, unspecified type Hyperkalemia Hyperpotassemia EDWARDO (acute kidney injury) ([facility]) ([facility]) Chest pain on breathing Painful respiration Stable angina pectoris ([facility]) ([facility]) Idiopathic chronic venous hypertension of right lower extremity with ulcer ([facility]) Peripheral vascular disease, unspecified (HCC) Peripheral vascular disease, unspecified Venous insufficiency (chronic) (peripheral) Unspecified venous (peripheral) insufficiency 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) Depression Depressive disorder, not elsewhere classified Essential hypertension, benign Hemiplegia ([facility]) ([facility]) Unspecified hemiplegia affecting unspecified side Obesity, Class I, BMI 30-34.9 Hyperlipidemia Other and unspecified hyperlipidemia Idiopathic chronic venous hypertension of right lower extremity with ulcer (HCC) [facility] Diagnosis 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)- Primary Peripheral venous insufficiency [I87.2] Unspecified venous (peripheral) insufficiency [facility]* Diagnosis 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)- Primary Peripheral venous insufficiency [I87.2] Unspecified venous (peripheral) insufficiency [facility]* Diagnosis 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)- Primary Peripheral venous insufficiency [I87.2] Unspecified venous (peripheral) insufficiency Chronic venous hypertension (idiopathic) with ulcer of left lower extremity (CODE) (HCC) [I87.312] Chronic venous hypertension (idiopathic) with ulcer of right lower extremity (CODE) (HCC) [I87.311] Non-pressure chronic ulcer of other part of right lower leg with fat layer 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) [L97.812] Non-pressure chronic ulcer of other part of left lower leg with fat layer 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) [L97.822] Non-pressure chronic ulcer left lower leg, limited to breakdown skin (HCC) Venous insufficiency (chronic) (peripheral) Unspecified venous (peripheral) insufficiency Decreased mobility Lymphedema Other noninfectious lymphedema [facility]* Diagnosis Cellulitis of leg, right- Primary Cellulitis and abscess of leg, except foot Cellulitis of leg, right Cellulitis and abscess of leg, except foot TBI (traumatic brain injury) (HCC) Intracranial injury of other and unspecified nature, without mention of open intracranial wound, unspecified state of consciousness Cellulitis Cellulitis and abscess of unspecified site Chronic daily headache- Primary Headache Traumatic brain injury with loss of consciousness, sequela documented in this encounter [facility] for referral (narrative)No reason for referral information [facility] Work Phone: Summary Purpose Family History No Family History Records FoundNo Family History Records FoundNo Family History Records FoundNo Family History Records FoundNo Family History Records FoundNo Family History Records Found Advance Directives No Advanced Directives Records FoundDocuments on File Type Date Recorded 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 Advance Directive(s) 01/21/2020 12:21 PM Advance Directive(s) 04/06/2019 3:11 PM Advance Directive(s) 06/16/2018 5:28 PM Advance Directive(s) 05/03/2017 11:52 PM Advance Directive(s) 07/09/2014 9:19 PM Latest Code Status on File Code Status Date Activated Date Inactivated Comments Full Code 06/08/2022 1:56 AM 06/23/2022 8:18 PM Latest Code Status on File Code Status Date Activated Date Inactivated Comments Full Code 06/08/2022 1:56 AM 06/23/2022 8:18 PM Latest Code Status on File Code Status Date Activated Date Inactivated Comments Full Code 10/28/2022 6:11 AM 10/28/2022 2:25 PM Code Status History Code Status Date Activated Date Inactivated Comments Full Code 06/08/2022 1:56 AM 06/23/2022 8:18 PM Documents on File Type Date 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 * Hypertension: Emergency or Urgency (Norwegian) * Headache (Norwegian) documented in this encounter* Attachments The following attachments cannot be sent through Care Everywhere. * Head Injury: Closed: General Info (Norwegian) * Lacerations: [place] (Norwegian) documented in this encounter Assessments Diagnosis Hypertensive urgency Unspecified essential hypertension Acute nonintractable headache, unspecified headache type Diagnosis Injury of head, initial encounter- Primary Laceration of scalp, initial encounter Chief Complaint and Reason for Visit Chief Complaint LONG TERM LABWORK LONG TERM LABWORK Chief Complaint LONG TERM LABWORK LONG TERM LAB WORK LONG TERM LABWORK Chief Complaint LONG TERM LABWORK LONG TERM LAB WORK LONG TERM LAB WORK Chief Complaint LONG TERM LABWORK LONG TERM LAB WORK LONG TERM LAB WORK LONG TERM LAB WORK Chief Complaint LONG TERM LAB WOR K LONG TERM LAB WORK LABWORK Chief Complaint LONG TERM LAB WOR K LONG TERM LAB WORK LABWORK LABWORK Chief Complaint LONG TERM LAB WOR K LABWORK LABWORK LABWORK Chief Complaint LABWORK LABWORK LABWORK LABWORK LONG TERM LAB WORK Chief Complaint LONG TERM LABWORK LABWORK LONG TERM LABWORK LABWORK LONG TERM LABWORK LONG TERM LABWORK LONG TERM LAB WORK LONG TERM LAB WORK Chief Complaint LONG TERM LABWORK LABWORK LONG TERM LABWORK LONG TERM LABWORK LONG TERM LAB WORK LONG TERM LAB WORK LONG TERM LABWORK Chief Complaint LABWORK LONG TERM LABWORK LONG TERM LABWORK LONG TERM LAB WORK LONG TERM LAB WORK LONG TERM LABWORK LONG TERM LABWORK LONG TERM LABWORK Chief Complaint LONG TERM LAB WOR K LONG TERM LABWORK LONG TERM LABWORK LONG TERM LABWORK Chief Complaint LONG TERM LABWORK LONG TERM LABWORK LONG TERM LABWORK LONG TERM LABWORK LONG TERM LABWORK LABWORK Chief Complaint LONG TERM LABWORK LONG TERM LABWORK LONG TERM LABWORK LABWORK LONG TERM LAB WORK LABWORK Chief Complaint LONG TERM LABWORK LONG TERM LABWORK LABWORK LONG TERM LAB WORK LABWORK LONG TERM LAB WORK Chief Complaint LABWORK LONG TERM LAB WORK LABWORK LONG TERM LAB WORK LONG TERM LAB WORK LONG TERM LABWORK Chief Complaint LABWORK LABWORK Chief Complaint LABWORK LABWORK LABWORK Chief Complaint LONG TERM LABWORK LABWORK LONG TERM LAB WORK LABWORK LONG TERM LAB WORK LONG TERM LAB WORK Chief Complaint Admit Date LONG TERM LAB WORK March 13, 2024 4:40am LONG TERM LAB WORK June 10, 2024 4: 00am Chief Complaint Admit Date LONG TERM LAB WORK June 10, 2024 4: 00am LABWORK July 08, 2024 5:0 0am Chief Complaint Admit Date LONG TERM LAB WORK June 10, 2024 4: 00am LABWORK July 08, 2024 5:0 0am LONG TERM LAB WORK July 22, 2024 5 :00am Chief Complaint Admit Date LONG TERM LAB WORK June 10, 2024 4: 00am LABWORK July 08, 2024 5:0 0am LONG TERM LAB WORK July 22, 2024 5 :00am LONG TERM LAB WORK July 29, 2024 4 :00am Reason for Referral Specialty Diagnoses / Procedures Referred By Sydnie t Referred To Contact Radiology Diagnoses Calculus of gallbladder without cholecystitis without obstruction Peripancreatic abscess Procedures CT abdomen pelvis w contrast Candie Vieyra PA-C [address] [place] [address] Referral ID Status Reason Start Date Expiration Date V isits Requested Visits Authorized [id number] Pending Review 07/29/2022 01/25/2023 1 1 Referral ID Status Reason Start Date Expiration Date V isits Requested Visits Authorized [id number] Authorized 07/29/2022 01/25/2023 1 1 Specialty Diagnoses / Procedures Referred By Sydnie t Referred To Contact Cardiology Diagnoses Peripheral vascular disease, unspecified (HCC) Venous insufficiency (chronic) (peripheral) 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) Procedures Vascular US lower extremity venous duplex bilateral Demetrius Fenton [address] [facility] [address] [place] [address] Referral ID Status Reason Start Date Expiration Date Visits Requested Visits Authorized [id number] Pending Review Perform Procedure 06/09/2022 12/06/2022 1 1 Specialty Diagnoses / Procedures Referred By Sydnie lincoln Referred To Contact Radiology Diagnoses Calculus of gallbladder without cholecystitis without obstruction Peripancreatic abscess Procedures CT abdomen pelvis w contrast Candie Vieyra PA-C [address] [place] [address] [place] [address] Referral ID Status Reason Start Date Expiration Date Visits Re quested Visits Authorized [id number] Closed 09/30/2022 10/30/2022 1 1 Additional Source Comments (unrecognized sect ion and content) No Status Records FoundNo Status Records FoundNo Status Records FoundNo Status Records FoundNo Status Records FoundNo Status Records Found INFORMATION SOURCE (unrecogn ized section and content) DATE CREATED AUTHOR 04/05/2019 [facility] DATE CREATED AUTHOR AUTHOR'S ORGANIZ ATION 10/14/2021 [facility] DATE CREATED AUTHOR AUTHOR'S ORGANIZ ATION 11/08/2021 [facility] DATE CREATED AUTHOR AUTHOR'S ORGANIZ ATION 04/11/2024 [facility] DATE CREATED AUTHOR AUTHOR'S ORGANIZ ATION 07/09/2024 [facility] DATE CREATED AUTHOR AUTHOR'S ORGANIZ ATION 09/06/2024 [facility] Reason for Visit (unrecogniz ed section and content) Reason Comments Hypertension Reason Comments Appointment needs outpatient cys toscopy in the OR Reason Comments Head Injury Fall Reason Comments Leg Swelling Reason Onset Date Comments OTHER 07/15/2022 Reason Comments 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 by angel fenton gallbladder Specialty Diagnoses / Procedures Referred By Sydnie lincoln Referred To Contact General Surgery Diagnoses Disease of gallbladder, unspecified Procedures [place] ABDOMEN WALL SURG PROC UNLISTED Demetrius Fenton [address] [place] [address] Brady Powell MD [address] [place] [address] Referral ID Status Reason Start Date Expiration Date V isits Requested Visits Authorized [id number] Closed Specialty Services Required 07/28/2022 01/27/2023 1 1 Specialty Diagnoses / Procedures Referred By Contac t Referred To Contact Radiology Diagnoses Calculus of gallbladder without cholecystitis without obstruction Peripancreatic abscess Procedures CT abdomen pelvis w contrast Candie Vieyra PA-C [address] [place] [address] [place] [address] Referral ID Status Reason Start Date Expiration Date Visits Re quested Visits Authorized [id number] Closed 09/30/2022 10/30/2022 1 1 Reason Comments Post-op ALS PO 2WK LAP RAMBO Reason Comments Suicidal Pt arrived via [facility]. Pt told staff at [facility] that he was thinking about driving his wheelchair out into traffic. Pt states he was joking. Pt denies SI/HI Reason Comments T B I Reason Comments Abdominal Pain Reason Comments Insurance Authorization [employer] Reason Comments Wound Care Reason Comments Dressing Change Reason Comments Headache Reason Comments Chest Pain Pt states chest pain started around 3-4 oclock today, per EMS [facility] thought it was GERD so they gave him an antacid. Pt states pain did not get any better, pt describes pain as heaviness in the center of his chest. Pt states his pain was a 7/10 then squad gave baby ASA and pain is not a 5/10. Specialty Diagnoses / Procedures Referred By Contac t Referred To Contact Diagnoses Hyperkalemia Chest pain Chest pain on breathing EDWARDO (acute kidney injury) (CMS/HCC) (HCC) Chest pain, unspecified type Procedures . Brenda Hagan [address] [place] [address] [facility] [address] [place] [address] Referral ID Status Reason Start Date Expiration Date Visits Re quested Visits Authorized [id number] 1 1 Reason Comments Follow Up Chronic daily headac hes Source Comments (unrecognize d section and content) In the event this informatio n is protected by the Federal Confidentiality of Alcohol and Drug Abuse Patient Records regulations: The Federal rules restrict any use of the information to criminally investigate or prosecute any alcohol or drug abuse patient.[facility] the event this information is protected by the Federal Confidentiality of Alcohol and Drug Abuse Patient Records regulations: The Federal rules restrict any use of the information to criminally investigate or prosecute any alcohol or drug abuse patient.[facility] the event this information is protected by the Federal Confidentiality of Alcohol and Drug Abuse Patient Records regulations: The Federal rules restrict any use of the information to criminally investigate or prosecute any alcohol or drug abuse patient.[facility] the event this information is protected by the Federal Confidentiality of Alcohol and Drug Abuse Patient Records regulations: The Federal rules restrict any use of the information to criminally investigate or prosecute any alcohol or drug abuse patient.[facility] Telephone Encounter - Raul Banks - 01/24/2020 3:36 PM EDTTelephone Encounter - Margaret Christopher (Project Accountant) - 01/23/2020 5:10 PM EDT Miscellaneous Notes (unrecog nized section and content) Pt seen at [place], [place] to schedule cysto, dilation in pt/guardian are interested. If they'd prefer [place] let one of our [place] docs know Raul Banks MD Please contact the patients guardian and arrange a cystoscopy in the OR as an outpatient with Dr. Banks Urinary retention, bulbar stricture He will be discharged to [place] documented in this encounter Care Teams (unrecognized sec tion and content) Team Status: Inactive Member Role Status Dates Demetrius WICK Attending Provider Active Team Status: Active Member Role Status Dates Demetrius WICK Attending Provider Active Team Status: Inactive Member Role Status Dates Gunnar WICK Attending Provider Active Team Status: Active Member Role Status Dates Gunnar WICK Attending Provider Active Team Status: Inactive Member Role Status Dates Demetrius WICK Attending Provider, Referring Provi javier Active Maintenance Instructor Relationship Specialty Start Date End Date Yogi Smith MD [address] [address] PCP - General Family Medicine 04/10/21 Maintenance Instructor Relationship Specialty Start Date End Date Yogi Smith MD [address] [address] PCP - General Family Medicine 04/10/21 Maintenance Instructor Relationship Specialty Start Date End Date Yogi Smith MD [address] [address] PCP - General Family Medicine 04/10/21 Maintenance Instructor Relationship Specialty Start Date End Date Yogi Smith MD [address] [place] [address] PCP - General Family Medicine 04/10/21 Team Status: Inactive Member Role Status Dates Gunnar Cummings Attending Provider Active Team Status: Inactive Member Role Status Dates Demetrius Fenton Attending Provider Active Team Status: Active Member Role Status Dates Demetrius Fenton Attending Provider Active Maintenance Instructor Relationship Specialty Start Date End Date [address] [place] [phone] PCP - General Internal Medicine 06/09/22 Maintenance Instructor Relationship Specialty Start Date End Date [address] [place] [phone] PCP - General Internal Medicine 06/09/22 Maintenance Instructor Relationship Specialty Start Date End Date [address] [place] [phone] PCP - General Internal Medicine 06/09/22 Maintenance Instructor Relationship Specialty Start Date End Date [address] [place] [phone] PCP - General Internal Medicine 06/09/22 Maintenance Instructor Relationship Specialty Start Date End Date [address] [place] [phone] PCP - General Internal Medicine 06/09/22 Maintenance Instructor Relationship Specialty Start Date End Date [address] [place] [phone] PCP - General Internal Medicine 06/09/22 Maintenance Instructor Relationship Specialty Start Date End Date [address] [place] [phone] PCP - General Internal Medicine 06/09/22 Maintenance Instructor Relationship Specialty Start Date End Date Demetrius Fenton [address] [place] [phone] PCP - General Internal Medicine 06/09/22 Maintenance Instructor Relationship Specialty Start Date End Date Demetrius Fenton [address] [place] [phone] PCP - General Internal Medicine 06/09/22 Maintenance Instructor Relationship Specialty Start Date End Date Demetrius Fenton [address] [place] [phone] PCP - General Internal Medicine 06/09/22 Maintenance Instructor Relationship Specialty Start Date End Date Demetrius Fenton [address] [place] [phone] PCP - General Internal Medicine 06/09/22 Maintenance Instructor Relationship Specialty Start Date End Date Demetrius Fenton [address] [place] [phone] PCP - General Internal Medicine 06/09/22 Team Status: Inactive Member Role Status Dates Gunnar WICK Attending Provider, Referring Prov ider Active Maintenance Instructor Relationship Specialty Start Date End Date Demetrius Fenton MD [address] [place] [address] PCP - General Internal Medicine 06/16/23 Maintenance Instructor Relationship Specialty Start Date End Date Demetrius Fenton [address] [place] [address] PCP - General Internal Medicine 06/09/22 Maintenance Instructor Relationship Specialty Start Date End Date Demetrius Fenton MD [address] [place], [place] [phone] PCP - General Internal Medicine 06/16/23 Maintenance Instructor Relationship Specialty Start Date End Date Demetrius Fenton [address] [place] [phone] PCP - General Internal Medicine 06/09/22 Maintenance Instructor Relationship Specialty Start Date End Date Demetrius Fenton [address] [place] [phone] PCP - General Internal Medicine 06/09/22 Maintenance Instructor Relationship Specialty Start Date End Date Demetrius Fenton [address] [place] [phone] PCP - General Internal Medicine 06/09/22 Maintenance Instructor Relationship Specialty Start Date End Date Demetrius Fenton [address] [place] [phone] PCP - General Internal Medicine 06/09/22 Maintenance Instructor Relationship Specialty Start Date End Date Demetrius Fenton [address] [place] [phone] PCP - General Internal Medicine 06/09/22 Maintenance Instructor Relationship Specialty Start Date End Date Demetrius Fenton [address] [place] [phone] PCP - General Internal Medicine 06/09/22 Maintenance Instructor Relationship Specialty Start Date End Date Demetrius Fenton [address] [place] [phone] PCP - General Internal Medicine 06/09/22 Maintenance Instructor Relationship Specialty Start Date End Date Demetrius Fenton [address] [place] [address] PCP - General Internal Medicine 06/09/22 Maintenance Instructor Relationship Specialty Start Date End Date Demetrius Fenton [address] [place] [address] PCP - General Internal Medicine 06/09/22 Maintenance Instructor Relationship Specialty Start Date End Date Demetrius Fenton [address] [place] [address] PCP - General Internal Medicine 06/09/22 Maintenance Instructor Relationship Specialty Start Date End Date Demetrius Fenton [address] [place] [address] PCP - General Internal Medicine 06/09/22 Maintenance Instructor Relationship Specialty Start Date End Date Demetrius Fenton [address] [place] [phone] PCP - General Internal Medicine 06/09/22 Maintenance Instructor Relationship Specialty Start Date End Date Demetrius Fenton [address] [place] [phone] PCP - General Internal Medicine 06/09/22 Maintenance Instructor Relationship Specialty Start Date End Date Demetrius Fenton MD [address] [place], [place] [phone] PCP - General Internal Medicine 06/16/23 Team Status: Active Member Role Status Dates Demetrius Lilliesonja WICK Attending Provider Active Sta rt: March 13, 2024 Demetrius Dianasunday WICK Referring Provider Active Sta rt: March 13, 2024 Team Status: Inactive Member Role Status Dates Demetrius Lilliesonja WICK Attending Provider Active Sta rt: June 10, 2024 End: June 10, 2024 Demetrius Lilliesonja WICK Referring Provider Active Sta rt: June 10, 2024 End: June 10, 2024 Team Status: Active Member Role Status Dates Demetrius WICK Attending Provider Active Sta rt: July 08, 2024 Team Status: Inactive Member Role Status Dates Demetrius WICK Attending Provider Active Sta rt: July 08, 2024 End: July 08, 2024 Team Status: Active Member Role Status Dates Demetrius Lilliesonja WICK Attending Provider Active Sta rt: July 22, 2024 Team Status: Inactive Member Role Status Dates Demetrius WICK Attending Provider Active Sta rt: July 22, 2024 End: July 22, 2024 Team Status: Active Member Role Status Dates Demetrius Lilliesonja WICK Attending Provider Active Sta rt: July 29, 2024 Team Status: Inactive Member Role Status Dates Demetrius Lilliesonja WICK Attending Provider Active Sta rt: July 29, 2024 End: July 29, 2024 Demetrius Dianasunday WICK Referring Provider Active Sta rt: July 29, 2024 End: July 29, 2024 Goals (unrecognized section and content) Goals may be documented in a n alternate sectionGoals may be documented in an alternate sectionGoals may be documented in an alternate sectionGoals may be documented in an alternate sectionGoals may be documented in an alternate sectionGoals may be documented in an alternate sectionGoals may be documented in an alternate sectionGoals may be documented in an alternate sectionGoals may be documented in an alternate sectionGoals may be documented in an alternate sectionGoals may be documented in an alternate sectionGoals may be documented in an alternate sectionGoals may be documented in an alternate sectionGoals may be documented in an alternate sectionGoals may be documented in an alternate sectionGoals may be documented in an alternate sectionGoals may be documented in an alternate sectionGoals may be documented in an alternate sectionGoals may be documented in an alternate sectionGoals may be documented in an alternate sectionGoals may be documented in an alternate sectionGoals may be documented in an alternate sectionGoals may be documented in an alternate sectionGoals may be documented in an alternate sectionGoals may be documented in an alternate section Scheduled Active and Recently Administ ered Medications (unrecognized section and content) Medication Order 06/21/2023 06/22/2023 06/23/2023 ketorolac (Toradol) injection 15 mg (COMPLETED) 15 mg, IntraVENous, Once, On Jessica 06/22/23 at 2230, For 1 dose 2256 (Given - Provider: Lucho Mcneill, RN) PRN Medication Order 06/21/2023 06/22/2023 06/23/2023 iopamidol (Isovue-370) 76 % injection 100 mL (COMPLETED) 100 mL, IntraVENous, IMG once PRN, contrast, Starting on Mon06/23/23 at 0007, For 1 dose 0008 (Given - Provid er: Lynn Yi, RT (R)(CT)) Scheduled Medication Order 02/16/2024 02/17/2024 02/18/2024 ketorolac (Toradol) injection 15 mg (COMPLETED) 15 mg, IntraVENous, Once, On 02/18/24 at 0130, For 1 dose 0202 (Given - Provid er: Janie Sims) ondansetron (Zofran) injection 4 mg (COMPLETED) 4 mg, IntraVENous, Once, On 02/18/24 at 0130, For 1 dose 0203 (Given - Provid er: Janie Sims) Scheduled Medication Order 06/21/2022 06/22/2022 06/23/2022 ARIPiprazole (Abilify) tablet 5 mg 5 mg, Oral, Daily, First dose on 06/12/22 at 0900 0853 (Given - Provider: Joslyn Reyes RN) 0827 (Given - Provider: Demetrius Castillo, RN) 0904 (Given - Provider: Becky Upton RN) aspirin chewable tablet 81 mg 81 mg, Oral, Daily, First dose on 06/08/22 at 0900 0853 (Given - Provider: Joslyn Reyes RN) 0827 (Given - Provider: Demetrius Castillo RN) 0904 (Given - Provider: Becky Upton RN) divalproex sprinkle (Depakote Sprinkle) DR capsule 250 mg 250 mg, Oral, Every 12 hours scheduled (2 times per day), First dose on Mon06/12/22 at 0900, Do not crush or chew. 0852 (Given - Provider: Joslyn Reyes RN)2034 (Given - Provider: Lilli Ku RN) 826 (Given - Provider: Demetrius Castillo, RN)2026 (Given - Provider: Lilli Barragan RN) 0904 (Given - Provider: Becky [place]pton RN) enoxaparin (Lovenox) syringe 40 mg 40 mg, SubCUTAneous, Every 24 hours scheduled (Daily), First dose on Mon06/08/22 at 0900, Indication of Use: Prophylaxis-DVT/PE, Indications: Prophylaxis of Venous Thromboembolism 0852 (Given - Provider: Joslyn Reyes RN) 826 (Given - Provider: Demetrius Castillo, RN) 09 (Given - Provider: Becky Upton RN) guaiFENesin (Mucinex) 12 hr tablet 600 mg 600 mg, Oral, 2 times daily, First dose on Mon06/16/22 at 0900, Administer with plenty of fluids to ensure proper action. Do not crush, chew, or split. 0853 (Given - Provider: Joslyn Reyes RN)2034 (Given - Provider: Lilli Ku RN) 826 (Given - Provider: Demetrius Castillo RN)2026 (Given - Provider: Lilli Barragan, SO) 09 (Given - Provider: Becky Upton RN) influenza vaccine split quadravalent (Flulaval,Fluzone,Fluarix ,Afluria) syringe 0.5 mL 0.5 mL, IntraMUSCular, Once, On Jessica 06/09/22 at 0900, For 1 dose, If not given at scheduled administration time, reschedule for next day. melatonin tablet 10 mg 10 mg, Oral, Nightly, First dose on Mon06/12/22 at 2100 2034 (Given - Provider: Lilli Ku RN) 2026 (Given - Provider: Lilli Barragan, SO) memantine (Namenda) tablet 10 mg 10 mg, Oral, 2 times daily, First dose on Mon06/12/22 at 0900 0852 (Given - Provider: Joslyn Reyes RN)2034 (Given - Provider: Lilli Ku RN) 08 (Given - Provider: Demetrius Castillo RN)2026 (Given - Provider: Lilli Barragan RN) 09 (Given - Provider: Becky Upton RN) metoprolol tartrate (Lopressor) tablet 25 mg 25 mg, Oral, 2 times daily, First dose on Mon06/23/22 at 1200 1400 (Given - Provider: Becky Upton RN) miconazole (Micotin) 2 % powder Topical, 2 times daily, First dose on Mon06/08/22 at 2100, Apply to all skin folds BID 0853 (Given - Provider: Joslyn Reyes RN)2035 (Given - Provider: Lilli Ku RN - Comment: skin folds) 0827 (Given - Provider: Demetrius Castillo RN)2028 (Given - Provider: Lilli Barragan RN) 09 (Given - Provider: Becky Upton RN) senna-docusate sodium (Senokot-S) 8.6-50 MG tablet 2 tablet 2 tablet, Oral, Daily, First dose on Jessica 06/09/22 at 1000 0852 (Given - Provider: Joslyn Reyes RN) 08 (Given - Provider: Demetrius Castillo RN) 09 (Given - Provider: Becky Upton RN) sodium chloride tablet 3 g (CANCELED) 3 g, Oral, 3 times daily with meals, First dose (after last modification) on 06/19/22 at 1200 0853 (Given - Provider: Joslyn Reyes RN) torsemide (Demadex) tablet 10 mg (CANCELED) 10 mg, Oral, 2 times daily, First dose on 06/19/22 at 2100 0853 (Given - Provider: Joslyn Reyes RN) venlafaxine (Effexor) tablet 75 mg 75 mg, Oral, 2 times daily, First dose on 06/12/22 at 0900 0852 (Given - Provider: Joslyn Reyes RN)2034 (Given - Provider: Lilli Ku RN) 08 (Given - Provider: Demetrius Castillo RN)2026 (Given - Provider: Lilli Barragan, SO) 0904 (Given - Provider: Becky Upton RN) PRN Medication Order 06/21/2022 06/22/2022 06/23/2022 acetaminophen (Tylenol) suppository 650 mg(Linked Group 1) 650 mg, Rectal, Every 6 hours PRN, mild pain (1-3), fever, For temp greater than 100.4 F (38 C), Starting on Mon06/08/22 at 0155, Administer if oral route cannot be used. Maximum dose of acetaminophen is 4000 mg from all sources in 24 hours. 1813 (See Alternative - Provider: Joslyn Reyes RN) 014 (See Alternative - Provider: Lilli Barragan RN) acetaminophen (Tylenol) tablet 650 mg(Linked Group 1) 650 mg, Oral, Every 6 hours PRN, mild pain (1-3), fever, For temp greater than 100.4 F (38 C), Starting on Mon06/08/22 at 0155, Maximum dose of acetaminophen is 4000 mg from all sources in 24 hours. 1813 (Given - Provider: Joslyn Reyes RN) 140 (Given - Provider: Lilli Barragan, SO) bisacodyl (Dulcolax) suppository 10 mg 10 mg, Rectal, Daily PRN, constipation, Starting on 06/11/22 at 0900 dextrose 5 % infusion 100 mL/hr, IntraVENous, PRN, Low Blood Sugar, Starting on Mon06/07/22 at 2354, Blood glucose less than 70 mg/dL and patient NOT ALERT or NPO and does not have IV access., After administration, attempt intravenous access and start D5W at 100 mL/hr. Repeat blood glucose in 15 minutes x2 and notify provider. dextrose 50 % solution 12.5 g 12.5 g, IntraVENous, PRN, low blood sugar, Starting on Mon06/07/22 at 2354, Blood glucose less than 70 mg/dL and patient NOT ALERT or NPO., If patient does not respond within 5 minutes, repeat dose x1. Start D5W at 100 mL/hour until ordering provider can be reached. Repeat blood glucose in 15 minutes. If blood glucose is less than 70 mg/dL, repeat treatment and recheck blood glucose in 15 minutes x2. If using Glucostabilizer, dose as instructed per system. glucagon (human recombinant) injection 1 mg 1 mg, IntraMUSCular, PRN, low blood sugar, Blood glucose less than 70 mg/dL and patient NOT ALERT or NPO and does not have IV access., Starting on Mon06/07/22 at 2354, After administration, attempt intravenous access and start D5W at 100 mL/hr. Repeat blood glucose in 15 minutes x2 and notify provider. glucose oral gel 15 g 15 g, Oral, As needed, low blood sugar, Starting on Mon06/07/22 at 2354, If blood glucose less than 50 mg/dL and patient ALERT and NOT NPO, give 2 tubes glucose gel. If blood glucose less than 70 mg/dL and patient ALERT and NOT NPO, give 1 tube glucose gel. Repeat blood glucose in 15 minutes. If blood glucose is less than 70 mg/dL, repeat treatment and recheck blood glucose in 15 minutes x2 and notify provider. ipratropium-albuterol (Duo-Neb) 0.5-2.5 mg/3 mL nebulizer solution 3 mL 3 mL, Nebulization, 4 times daily PRN, wheezing, Starting on Mon06/15/22 at 0441 lidocaine (Uro-Jet) 2 % gel Urethral, PRN, mild pain (1-3), Starting on Mon06/10/22 at 1202 melatonin tablet 6 mg 6 mg, Oral, Nightly PRN, sleep, Starting on Mon06/08/22 at 0155 naloxone (Narcan) injection 0.4 mg 0.4 mg, IntraVENous, PRN, opioid reversal, Starting on Mon06/16/22 at 1740 nitroglycerin (Nitrostat) SL tablet 0.4 mg 0.4 mg, SubLINGual, Every 5 min PRN, chest pain, Starting on Mon06/08/22 at 0155, Give every 5 minutes as needed for chest pain to a maximum of 3 doses. Notify MD and obtain EKG if no relief after 3 doses or chest pain recurs. HOLD and notify MD if SBP less than 90 mmHg. Do not give if nitroglycerin infusion running concurrently. Do not give within 24 hours of sildenafil citrate (Viagra) or vardenafil (Levitra) use, or within 48 hours of tadalafil (Cialis) use. ondansetron (Zofran) injection 4 mg(Linked Group 2) 4 mg, IntraVENous, Every 6 hours PRN, nausea, vomiting, Starting on Mon06/08/22 at 0155, Administer if oral route cannot be used. ondansetron ODT (Zofran-ODT) disintegrating tablet 4 mg(Linked Group 2) 4 mg, Oral, Every 8 hours PRN, nausea, vomiting, Starting on Mon06/08/22 at 0155, Patient should allow tablet to dissolve on tongue. Do not remove from blister pack until just before administering. polyethylene glycol (PEG) 3350 (Miralax) packet 17 g 17 g, Oral, Daily PRN, constipation, Starting on Mon06/08/22 at 0155, 1st line for treatment of constipation - give scheduled if no bowel movement in past 24 hours. 0546 (Given - Provider: Lilli Ku RN) stomahesive in petrolatum (ET Mix) Topical, As needed, dry skin, Starting on Mon06/08/22 at 1452, Et mix to buttock, perineal area and post thighs, twice daily . Linked Groups Order Group 1: acetaminophen (Tylenol) tablet 650 mgJump to med 650 mg, Oral, Every 6 hours PRN, mild pain (1-3), fever, For temp greater than 100.4 F (38 C), Starting on Mon06/08/22 at 0155
Maximum dose of acetaminophen is 4000 mg from all sources in 24 hours.
Or acetaminophen (Tylenol) suppository 650 mgJump to med 650 mg, Rectal, Every 6 hours PRN, mild pain (1-3), fever, For temp greater than 100.4 F (38 C), Starting on Mon06/08/22 at 0155
Administer if oral route cannot be used. Maximum dose of acetaminophen is 4000 mg from all sources in 24 hours.
Group 2: ondansetron ODT (Zofran-ODT) disintegrating tablet 4 mgJump to med 4 mg, Oral, Every 8 hours PRN, nausea, vomiting, Starting on Mon06/08/22 at 0155
Patient should allow tablet to dissolve on tongue. Do not remove from blister pack until just before administering.
Or ondansetron (Zofran) injection 4 mgJump to med 4 mg, IntraVENous, Every 6 hours PRN, nausea, vomiting, Starting on Mon06/08/22 at 0155
Administer if oral route cannot be used.
FOR RECORDS PERTAINING TO PATIENTS WHO ARE OR HAVE BEEN ENROLLED IN A CHEMICAL DEPENDENCY/SUBSTANCEABUSE PROGRAM, SOME INFORMATION MAY BE OMITTED. This clinical summary was aggregated from multiple sources. Caution should be exercised in using it in the provision of clinical care. This summary normalizes information from multiple sources, and as a consequence, information in this document may materially change the coding, format and clinical context of patient data. In addition, data may be omitted in some cases. CLINICAL DECISIONS SHOULD BE BASED ON THE PRIMARY CLINICAL RECORDS. [employer] [facility] provides no warranty or guarantee of the accuracy or completeness of information in this document.
[2024-09-20 07:58] LABS: Hemoglobin 13.8 g/dL (13.0-16.5); Mean Corp Hgb Conc 34.5 g/dL (32-36); Mean Corpuscular Hgb 31.6 pg (27.0-32.0); Mean Corpuscular Volume 91.5 fL (80-94); Mean Platelet Vol. 10.7 fl (6.2-12.0); Platelet Count 118 K/mm3 (150-450); RBC Distribution Width CV 12.9 % (11.6-14.6); RBC Distribution Width SD 41.6 fl (35.1-43.9); Red Blood Count 4.37 M/mm3 (4.6-6.2)
[2024-09-20 13:09] LABS: Hemoglobin A1c 6.9 % (<=5.6)
[2024-09-20 13:57] LABS: Cholesterol 106 mg/dL (<=200); High Density Lipoprotein 39 mg/dL; Low Density Lipoprotein Calc. 46 mg/dL; Triglycerides 108 mg/dL; Very Low Density Lipoprotein 22 mg/dL (5-40); cholesterol:hdl ratio screen 2.73
[2024-09-20 14:35] LABS: ALB/GLOB Ratio 1.5 RATIO (0.9-2.4); AST(SGOT) 31 U/L (<=37); Alanine Aminotransfer ALT/SGPT 30 U/L (<=46); Albumin, Serum 3.6 g/dL (3.4-4.8); Alkaline Phosphatase 60 U/L (40-129); Anion Gap 10 (5-15); BUN 19 mg/dL (4-19); BUN/Creat Ratio 16.6 RATIO (10-20); Calcium,Total 9.1 mg/dL (7.6-11.0); Carbon Dioxide 25.7 mmol/L (21.0-32.0); Chloride 101 mmol/L (98-108); Creatinine, Serum 1.16 mg/dL (0.70-1.20); EST Glomerular Filtration Rate 72 (>60); Globulin 2.4 g/dL (2.2-4.2); Glucose 125 mg/dL (70-99); Potassium 4.4 mmol/L (3.3-5.1); Sodium Level 137 mmol/L (133-145); Total Bilirubin 0.68 mg/dL (0.00-1.30)
== END ==
LOC: OLS.SANC 05:00
PROVIDERS: Visit Provider Internal Medicine
DX: E11.9 Type 2 diabetes mellitus without complications (principal); I10 Essential (primary) hypertension; E78.5 Hyperlipidemia, unspecified
CPT/HCPCS: 36415; 80053; 80061; 83036; 85027

== ENCOUNTER → 2024-10-21 05:00 | Outpatient (REF) | payer MEDICARE, MEDICAID, SELFPAY ==
--- OUTSIDE RECORDS SUMMARY | 2024-10-21 04:02 | XMS RPT_ITS | CCD ---
Author Organization [facility] Care Team Providers Care Phone Manager Name Role Phone Unavailable Primary Care Provider UnavailGunnar Kenney Primary Care Provider [phone] Yogi Smith MD Primary Care Provider [phone] Unavailable Primary Care Provider UnavailDemetrius Macedo Primary Care Provider Demetrius Fenton Primary Care Provider Demetrius Fenton MD Primary Care Provider Demetrius Fenton Primary Care Provider DEMETRIUS FENTON Primary Care Unavailable JULISSA TAYLOR Attending Unavailable KATSAROS, DEMETRIUS Primary Care Unavailable KATSAROS, PETER Primary Care [...] Unavailable KATSAROS, PETER Primary Care Unavailable CLAUDIA, JULSISA Attending Unavailable KATSAROS, PETER Primary Care Unavailable [...] Unavailable Demetrius Fenton MD Primary Care Provider Katsasunday WICK, Peter Attending Provider Unavailab le Katsaros OLS, Peter Referring Provider Unavailab le Katsaros OLS, Peter Attending Provider Unavailab le Katsaros OLS, Peter Referring Provider Unavailab le Katsaros OLS, Peter Attending Unavailable Katsaros OLS, [...] (3 sources) hydrALAZINE Drug Allergy 05-25-19 Unknown [facility] Lincosamides (antibiotic) (3 sources) Clindamycin Drug Allergy 09-26-19 14 [facility] Opioid Agonists (3 sources) traMADol Drug Allergy 05-25-19 Unknown [facility] Pollen (3 sources) Pollen Substance Allergy 10-26-19 [facility] Sulfamethoxazole / Trimethoprim (3 sources) Sulfamethoxazole / Trimethoprim Drug Allergy 05-25-19 Unknown [facility] (20 sources) Clindamycin; Translations: [CLINDAMYCIN] Drug Allergy 09-26-19 14 [facility] Work Phone: (20 sources) Other Propensity to adverse reactions 03-09-20 [facility] Work Phone: (1 source) Cat Gut Sutures [Other] Propensity to adverse reactions 03-09-20 [facility] (20 sources) hydrALAZINE; Translations: [HYDRALAZINE] Drug Allergy 05-25-19 [facility] (20 sources) Sulfamethoxazole / Trimethoprim; Translations: [SULFAMETHOXAZOLE-TR IMETHOPRIM] Drug Allergy 05-25-19 [facility] (20 sources) Temazepam; Translations: [TEMAZEPAM] Propensity to adverse reactions 05-25-19 [facility] (20 sources) traMADol; Translations: [TRAMADOL] Drug Allergy 05-25-19 Unknown [facility] (20 sources) Pollen Propensity to adverse reactions 10-26-19 [facility] (3 sources) Temazepam Drug Allergy 05-25-19 Unknown [facility] (1 source) Pollen Drug Allergy 07-09-19 Unknown [facility] NEGATED: Highlighted row has been ruled out! (12 sources) Other Propensity to adverse reactions 03-09-20 [facility] Work Phone: Medications Current Medications Medication Drug Class(es) Dates Sig (Normalized) Sig (Original) acetaminophen 325 mg oral capsule (20 sources) take 2 capsules by mouth every six hours as needed acetaminophen 325 mg cap Take 650 mg by mouth every 6 hours as needed. Active take 2 tablets by [facility] every six hours as needed for [...] 07/29/2022 Discontinued take 2 tablets by mo gah three times daily acetaminophen (TYLENOL) 325 MG tablet Take 650 mg by mouth 3 times daily 0 Active Comment on above: Take 650 mg by mouth every 4 hours. acetaminophen 325 mg / HYDROcodone bitartrate 5 mg oral tablet (20 sources) Opioid Agonist Start: 07-09-2022 take 1 tablet by mouth every eight hours HYDROcodone-aceta minophen ([place]) 5-325 MG tablet Take 1 tablet by [...] on above: Take 1 tablet by [facility] every 8 hours as needed for pain. [id number] 200 actuat albuterol 0.09 mg/actuat metered dose [...] Start: 06-21-2018 take 2 tablets by mo [facility] once daily amLODIPine (NORVASC) 5 MG tablet [...] oral capsule (20 sources) Non-narcotic Antitussive Start: benzonatate (Tessalon) 200 MG capsule 09/11/2023 Active biotin 10 mg oral tablet (19 sources) take 10 mg by mouth once daily BIOTIN ORAL Take 10 mg by mouth once daily. Active cephalexin 250 mg oral capsule (20 sources) Cephalosporin Antibacterial Start: cephalexin (Keflex) 250 MG capsule 06/23/2023 Active [...] Comment on above: Take 1 capsule by [facility] once each week. ciprofloxacin 500 mg oral tablet (13 sources) Quinolone Antimicrobial Start: 03-08-2022 ciprofloxacin (Cipro) 500 MG tablet cloNIDine hydrochloride 0.1 mg oral tablet (20 sources) Central alpha-2 Adrenergic Agonist Start: 06-24-2022 cloNIDine HCl (CATAPRES) 0.1 mg tablet Take 0.1 mg by mouth. 06/24/2022 Active Start: 05-27-2022 cloNIDine (Cat apres-TTS) 0.3 MG/24HR End: 06-23-2022 [facility] cloNIDine (CATAPRES) 0.1 MG [...] 1000 mg / omega-3 acid ethyl esters (correction) 300 mg delayed release oral capsule (7 sources) take 2000 mg by mouth twice daily Bessemer-3 Fatty Acids (FISH OIL) 1000 MG CPDR [...] Comment on above: Take 1 capsule by [facility] once daily. docusate sodium 50 mg / sennosides, correction 8.6 mg oral tablet (20 sources) Start: [...] Comment on above: Take 2 tablets by [facility]. doxycycline hyclate 100 mg oral capsule [...] Start: 06-25-2022 ergocalciferol (Vitamin D2) 1.25 MG (14911 UT) capsule 2 ml famotidine 10 mg/ml injection (20 sources) Histamine-2 Receptor Antagonist Start: 06-09-2022 take 1 dose intravenously once 20 mg, IntraVENous, Administer over 2 Minutes, Once, On [facility] 06/09/22 at 0415, For 1 dose [...] End: 06-23-2022 take 1 capsule by mo ut three times daily gabapentin (NEURONTIN) 100 MG [...] End: 06-23-2022 take 2 tablets by mo uth once daily lisinopril (PRINIVIL;ZESTRIL) 20 MG tablet Take 40 mg by mouth daily 0 Active loratadine 10 mg oral tablet (20 sources) take 1 tablet by [facility] once daily loratadine (Claritin) 10 MG tablet [...] 2 times d aily, First dose on [facility] 06/23/22 at 1200 Start: 06-09-2022 End: 06-09-2022 [...] Drug Start: 05-24-2022 minocycline 100 MG capsule Bessemer-3 Fatty Acids (FISH OIL) 1000 MG CPDR (8 sources) take 2000 mg by mouth twice daily [place]esse[place]-3 Fatty Acids (FISH OIL) 1000 MG CPDR [...] mouth tw ice daily. polyethylene glycol 3350 84989 mg powder for oral solution (7 sources) [...] Active Start: 03-24-2015 [facility] 1 [facility] potassium chloride (K-TAB) 10 mEq [...] on above: Take 1 capsule by mo [facility] once daily. topiramate 25 mg oral capsule [...] at 0900 take 2 tablets by mo [facility] twice daily venlafaxine (EFFEXOR) 75 mg tablet [...] PRN, wheezing, Starting on Mon06/15/22 at 0441 amoxicillin 875 mg / clavulanate [...] PRN, constipation, Starting on 06/11/22 at 0900 Bisacodyl (DULCO LAX) 5 mg [...] 3 mg/ml oral solution (2 sources) Uncompetitive E-wbpjrk-K-aspartate Receptor Antagonist, Sigma-1 Agonist End: 06-23 1 [...] daily, First dose (after last reorder) on Mon06/16/22 at 2100 Start: 05-27-2022 furosemide (La six) [...] bedtime. Active take 2 tablets by mo [facility] once daily melatonin 5 MG tablet Take [...] hydrochloride 10 mg oral tablet (20 sources) Y-xzxkma-S-aspartate Receptor Antagonist Start: 2014 End: 2024 take 1 tablet by mouth twice daily memantine (NAMENDA) 10 mg tablet Indications: TBI (traumatic brain injury), with loss of consciousness of unspecified duration, sequela Take 1 tablet by mouth twice daily. 180 tablet 1 03/24/2015 07/08/2024 Discontinued Comment on above: Take 1 [facility]. 2 ml metoclopramide 5 mg/ml [...] End: 06-07-2022 0.4 mg, SubLINGual, Once, On Mon06/07/22 at 2320, For 1 dose May administer [...] Comment on above: Take 2 capsules by m outh once daily. (2 sources) End: 06-23-2022 (2 sources) Start: 06-15-2022 End: 06-17-2022 take 1250 mg intravenously every twelve hours (10 sources) Start: 06-15-2022 End: 06-17-2022 take 2000 mg intravenously every eight hours 2,000 mg, IntraVENous, at 33.3 mL/hr, Administer over 180 Minutes, Every 8 hours, First dose on Mon06/15/22 at 2200 [facility] Med-Surg/Crit Care Init Dosing MEENU 8, General Internist cl >=50, 3h Suspected Indication (Select all [...] PRN, other, Suboptimal echo image, Starting on 06/08/22 at 0243, For 1 dose, CV Procedural [...] [Type 2 diabetes mellitus without complications] Onset: 08-19-2024 Chronic Disorders of lipid metabolism (20 sources) [...] (traumatic brain injury)] Onset: 09-25-2013 04-05-2019 Episodic Mood disorders (20 sources) Depressive disorder; Translations: [Depressive disorder] Onset: 03-14-2015 06-20-2018 Chronic Other aftercare (1 source) Postoperative visit; Translations: [Encounter for other specified surgical aftercare] 11-16-2022 Episodic Other aftercare (2 sources) Other ferry terminal agent (current) drug therapy; Translations: [Other ferry terminal agent (current) drug therapy] Onset: 03-27-2024 Episodic Other [...] kidney failure, unspecified] Onset: 06-08-2022 07-27-2022 Episodic Malaise and fatigue (1 source) Other fatigue; Translations: [Other fatigue] Onset: 07-09-2024 Episodic Nonspecific chest pain (20 sources) Chest pain; Translations: [Chest pain, unspecified] Onset: 06-08-2022 06-08-2022 Episodic Open wounds of head; neck; and trunk (20 sources) Scalp laceration; Translations: [Laceration without foreign body of scalp, initial encounter] Onset: 07-27-2022 07-27-2022 Episodic Other aftercare (20 sources) Long-term current use of drug therapy; Translations: [Other longterm (current) drug therapy] Onset: 02-26-2022 07-27-2022 Episodic [...] [Chronic back pain] Onset: 03-14-2015 03-14-2015 Episodic Skin and subcutaneous tissue infections (20 sources) Cellulitis and abscess of lower limb; Translations: [Cellulitis] Onset: 10-03-2015 01-21-2020 Episodic Spondylosis; intervertebral disc disorders; other back problems (20 sources) Neck pain; Translations: [Chronic back pain ] Onset: 03-09-2006 03-09-2006 Episodic Results Test Name Value Interpretation Reference Range Facility CBC-Complete Blood Cnt No Di ffon 09-20-2024 Erythrocyte distribution width (RBC) [Ratio] 12.9 % Normal 11.6-14.6 [facility] Comment on above: Order Comment: 107-1 Performed By: #### L 500.4050, L100.0500, L501.9985, L500.4100 #### [facility] [address] [place], [place], [id number] Hematocrit (Bld) [Volume fraction] 40.0 % Normal 40-54 [facility] Comment on above: Order Comment: 107-1 Performed By: #### L 500.4050, L100.0500, L501.9985, L500.4100 #### [facility] [address] [place], [address] Hemoglobin (Bld) [Mass/Vol] 13.8 g/dL Normal 13.0-16.5 [facility] Comment on above: Order Comment: 107-1 Performed By: #### L 500.4050, L100.0500, L501.9985, L500.4100 #### [facility] [address] [place], [address] MCH (RBC) [Entitic mass] 31.6 pg Normal 27.0-32.0 [facility] Comment on above: Order Comment: 107-1 Performed By: #### L 500.4050, L100.0500, L501.9985, L500.4100 #### [facility] [address] [place], [address] MCHC (RBC) [Mass/Vol] 34.5 g/dL Normal 32-36 [facility] Comment on above: Order Comment: 107-1 Performed By: #### L 500.4050, L100.0500, L501.9985, L500.4100 #### [facility] [address] [place], [address] MCV (RBC) [Entitic vol] 91.5 fL Normal 80-94 [facility] Comment on above: Order Comment: 107-1 Performed By: #### L 500.4050, L100.0500, L501.9985, L500.4100 #### [facility] [address] [place], [address] Platelet mean volume (Bld) [Entitic vol] 10.7 fL Normal 6.2-12.0 [facility] Comment on above: Order Comment: 107-1 Performed By: #### L 500.4050, L100.0500, L501.9985, L500.4100 #### [facility] [address] [place], [address] Platelets (Bld) [#/Vol] 118 10*3/uL Low 150-450 [facility] Comment on above: Order Comment: 107-1 Performed By: #### L 500.4050, L100.0500, L501.9985, L500.4100 #### [facility] [address] [place], [address] RBC (Bld) [#/Vol] 4.37 10*6/uL Low 4.6-6.2 [facility] Comment on above: Order Comment: 107-1 Performed By: #### L 500.4050, L100.0500, L501.9985, L500.4100 #### [facility] [address] [place], [address] RDW SD 41.6 fl Normal 35.1-43.9 [facility] Comment on above: Order Comment: 107-1 Performed By: #### L 500.4050, L100.0500, L501.9985, L500.4100 #### [facility] [address] [place], [address] WBC (Bld) [#/Vol] 7.0 10*3/uL Normal 4.4-11.0 [facility] Comment on above: Order Comment: 107-1 Performed By: #### L 500.4050, L100.0500, L501.9985, L500.4100 #### [facility] [address] [place], [address] Comprehensive Metabolic Prof [facility] 09-20-2024 Albumin [Mass/Vol] 3.6 g/dL Normal 3.4-4.8 [facility] Comment on above: Order Comment: 107-1 Performed By: #### L 501.9985, L500.4100, L100.0500, L500.4050 #### [facility] [address] [place], [address] Albumin/Globulin [Mass ratio] 1.5 {ratio} Normal 0.9-2.4 [facility] Comment on above: Order Comment: 107-1 Performed By: #### L 501.9985, L500.4100, L100.0500, L500.4050 #### [facility] [address] [place], [address] ALK PHOS 60 U/L Normal 40-129 [facility] Comment on above: Order Comment: 107-1 Performed By: #### L 501.9985, L500.4100, L100.0500, L500.4050 #### [facility] [address] [place], [address] ALT [Catalytic activity/Vol] 30 U/L Normal <=46 [facility] Comment on above: Order Comment: 107-1 Performed By: #### L 501.9985, L500.4100, L100.0500, L500.4050 #### [facility] [address] [place], [address] AST [Catalytic activity/Vol] 31 U/L Normal <=37 [facility] Comment on above: Order Comment: 107-1 Performed By: #### L 501.9985, L500.4100, L100.0500, L500.4050 #### [facility] [address] [place], [address] Bilirubin [Mass/Vol] 0.68 mg/dL Normal 0.00-1.30 [facility] Comment on above: Order Comment: 107-1 Performed By: #### L 501.9985, L500.4100, L100.0500, L500.4050 #### [facility] [address] [place], [address] BUN/CRE 16.6 RATIO Normal 10-20 [facility] Comment on above: Order Comment: 107-1 Performed By: #### L 501.9985, L500.4100, L100.0500, L500.4050 #### [facility] [address] [place], [address] Calcium [Mass/Vol] 9.1 mg/dL Normal 7.6-11.0 [facility] Comment on above: Order Comment: 107-1 Performed By: #### L 501.9985, L500.4100, L100.0500, L500.4050 #### [facility] [address] [place], [address] Chloride [Moles/Vol] 101 mmol/L Normal 98-108 [facility] Comment on above: Order Comment: 107-1 Performed By: #### L 501.9985, L500.4100, L100.0500, L500.4050 #### [facility] [address] [place], [address] CO2 [Moles/Vol] 25.7 mmol/L Normal 21.0-32.0 [facility] Comment on above: Order Comment: 107-1 Performed By: #### L 501.9985, L500.4100, L100.0500, L500.4050 #### [facility] [address] [place], [address] Creatinine [Mass/Vol] 1.16 mg/dL Normal 0.70-1.20 [facility] Comment on above: Order Comment: 107-1 Performed By: #### L 501.9985, L500.4100, L100.0500, L500.4050 #### [facility] [address] [place], [address] GAP 10 Normal 5-15 [facility] Comment on above: Order Comment: 107-1 Performed By: #### L 501.9985, L500.4100, L100.0500, L500.4050 #### [facility] [address] [place], [address] GFR/1.73 sq M.predicted among non-blacks MDRD (S/P/Bld) [Vol rate/Area] 72 mL/min/{1.73_m2} Normal >60 [facility] Comment on above: Order Comment: 107-1 Result Comment: mL/m in/1.73m2 CKD-EPI Creatinine Equation (2020) Performed By: #### L 501.9985, L500.4100, L100.0500, L500.4050 #### [facility] [address] [place], [address] Globulin (S) [Mass/Vol] 2.4 g/dL Normal 2.2-4.2 [facility] Comment on above: Order Comment: 107-1 Performed By: #### L 501.9985, L500.4100, L100.0500, L500.4050 #### [facility] [address] [place], [address] Glucose [Mass/Vol] 125 mg/dL High 70-99 [facility] Comment on above: Order Comment: 107-1 Performed By: #### L 501.9985, L500.4100, L100.0500, L500.4050 #### [facility] [address] [place], [address] Potassium [Moles/Vol] 4.4 mmol/L Normal 3.3-5.1 [facility] Comment on above: Order Comment: 107-1 Performed By: #### L 501.9985, L500.4100, L100.0500, L500.4050 #### [facility] [address] [place], [address] Sodium [Moles/Vol] 137 mmol/L Normal 133-145 [facility] Comment on above: Order Comment: 107-1 Performed By: #### L 501.9985, L500.4100, L100.0500, L500.4050 #### [facility] [address] [place], [address] T PROT 6.0 g/dL Normal 5.9-8.4 [facility] Comment on above: Order Comment: 107-1 Performed By: #### L 501.9985, L500.4100, L100.0500, L500.4050 #### [facility] [address] [place], [address] Urea nitrogen [Mass/Vol] 19 mg/dL Normal 4-19 [facility] Comment on above: Order Comment: 107-1 Performed By: #### L 501.9985, L500.4100, L100.0500, L500.4050 #### [facility] [address] [place], [address] Hemoglobin A1con 09-20-2024 HbA1c (Bld) [Mass fraction] 6.9 % High <=5.6 [facility] Comment on above: Order Comment: 107- Result Comment: Norm al < 5.7 % Prediabetic 5.7 - 6.4 % Diabetic >or= 6.5 % Please note range changes. Performed By: #### L 500.4050, L100.0500, L501.9985, L500.4100 #### [facility] [address] [place], [address] Lipid Profileon 09-20-2024 CHOL:HDL 2.73 Normal [facility] Comment on above: Order Comment: 107-1 Performed By: #### L 501.9985, L500.4100, L100.0500, L500.4050 #### [facility] [address] [place], [address] Cholesterol [Mass/Vol] 106 mg/dL Normal <=200 [facility] Comment on above: Order Comment: 107- Result Comment: Chol esterol level, Desirable <200 mg/dL Borderline high cholesterol 200-239 mg/dL High cholesterol >=240 mg/dL Recommendations of the NCEP Adult Treatment Panel for the following risk-cutoff thresholds for the [place] population. Performed By: #### L 501.9985, L500.4100, L100.0500, L500.4050 #### [facility] [address] [place], [address] Cholesterol in HDL [Mass/Vol] 39 mg/dL Low [facility] Comment on above: Order Comment: 107-1 Result Comment: Jen onal Cholesterol Education Program (NCEP) guidelines: <40 mg/dL: Low HDL-cholesterol (major risk factor for CHD) >= 60 mg/dL: High HDL-cholesterol (negative risk factor for CHD) HDL-cholesterol is affected by a number of factors, e.g. smoking, exercise, hormones, sex and age. Performed By: #### L 501.9985, L500.4100, L100.0500, L500.4050 #### [facility] [address] [place], [address] Cholesterol in LDL [Mass/Vol] 46 mg/dL Normal [facility] Comment on above: Order Comment: -1 Result Comment: Bord vmmtwb=586-762 mg/dL Higher Ilyl=645 mg/dL or greater Performed By: #### L 501.9985, L500.4100, L100.0500, L500.4050 #### [facility] [address] [place], [address] Cholesterol in VLDL [Mass/Vol] 22 mg/dL Normal 5-40 [facility] Comment on above: Order Comment: Performed By: #### L 501.9985, L500.4100, L100.0500, L500.4050 #### [facility] [address] [place], [address] Triglyceride [Mass/Vol] 108 mg/dL Normal [facility] Comment on above: Order Comment: 107-1 Result Comment: The drugs N-Acetylcysteine and Metamizole may falsely depress this assay. Normal range: <150 mg/dL Borderline High: 150-199 mg/dL High: 200-499 mg/dL Very High: >500 mg/dL Performed By: #### L 501.9985, L500.4100, L100.0500, L500.4050 #### [facility] [address] [place], [address] Serum or plasma valproate me asurement (mass/volume)Ordered By: Demetrius Fenton on 07-29-2024 Valproate [Mass/Vol] 57 ug/mL 50-100 [facility] Comment on above: Valproic Acid concen trations >100 ug/mL are potentially toxic. Valproic Acid (Depakene) Lev alison 07-29-2024 VALPROIC ACID 57 ug/mL Normal 50-100 [facility] Comment on above: Order Comment: 107.1 Result Comment: Valp roic Acid concentrations >100 ug/mL are potentially toxic. Performed By: #### L 501.9985, L500.4100, L100.0500, L500.4050 #### [facility] [address] [place], [address] Anion gap in Serum or Plasma Ordered By: Demetrius Fenton on 07-22-2024 Anion gap [Moles/Vol] 14 mmol/L -15 [facility] BUN/creatinine ratioOrdered By: Demetrius Fenton on 07-22-2024 Urea nitrogen/Creatinine [Mass ratio] 11.2 mg/mg - [facility] Basic Metabolic Profile (BMP )on 07-22-2024 BUN/CRE 11.2 RATIO Normal - [facility] Comment on above: Order Comment: 107.1 Performed By: #### L 501.9985, L500.4100, L100.0500, L500.4050 #### [facility] [address] [place], [address] Calcium [Mass/Vol] 9.1 mg/dL Normal 7.6-11.0 [facility] Comment on above: Order Comment: 107.1 Performed By: #### L 501.9985, L500.4100, L100.0500, L500.4050 #### [facility] [address] [place], [address] Chloride [Moles/Vol] 97 mmol/L Low 98-108 [facility] Comment on above: Order Comment: 107.1 Performed By: #### L 501.9985, L500.4100, L100.0500, L500.4050 #### [facility] [address] [place], [address] CO2 [Moles/Vol] 21.4 mmol/L Normal 21.0-32.0 [facility] Comment on above: Order Comment: 107.1 Performed By: #### L 501.9985, L500.4100, L100.0500, L500.4050 #### [facility] [address] [place], [address] Creatinine [Mass/Vol] 1.20 mg/dL Normal 0.70-1.20 [facility] Comment on above: Order Comment: 107.1 Performed By: #### L 501.9985, L500.4100, L100.0500, L500.4050 #### [facility] [address] [place], [address] GAP 14 Normal 5-15 [facility] Comment on above: Order Comment: 107.1 Performed By: #### L 501.9985, L500.4100, L100.0500, L500.4050 #### [facility] [address] [place], [address] GFR/1.73 sq M.predicted among non-blacks MDRD (S/P/Bld) [Vol rate/Area] 69 mL/min/{1.73_m2} Normal >60 [facility] [facility] Comment on above: Order Comment: 107.1 Result Comment: mL/m in/1.73m2 CKD-EPI Creatinine Equation (2020) Performed By: #### L [id number], L500.4100, L100.0500, L500.4050 #### [facility] [address] [place], [address] Glucose [Mass/Vol] 184 mg/dL High 70-99 [facility] Comment on above: Order Comment: 107.1 Performed By: #### L [id number], L500.4100, L100.0500, L500.4050 #### [facility] [address] [place], [address] Potassium [Moles/Vol] 4.4 mmol/L Normal 3.3-5.1 [facility] Comment on above: Order Comment: 107.1 Performed By: #### L [id number], L500.4100, L100.0500, L500.4050 #### [facility] [address] [place], [address] Sodium [Moles/Vol] 132 mmol/L Low 133-145 [facility] Comment on above: Order Comment: 107.1 Performed By: #### L [id number], L500.4100, L100.0500, L500.4050 #### [facility] [address] [place], [address] Urea nitrogen [Mass/Vol] 13 mg/dL Normal 4-19 [facility] Comment on above: Order Comment: 107.1 Performed By: #### L [id number], L500.4100, L100.0500, L500.4050 #### [facility] [address] [place], [address] CBC-Complete Blood Cnt No Di ffon 07-22-2024 Erythrocyte distribution width (RBC) [Ratio] 13.0 % Normal 11.6-14.6 [facility] Comment on above: Order Comment: 107.1 Performed By: #### L [id number], L500.4100, L100.0500, L500.4050 #### [facility] [address] [place], [address] Hematocrit (Bld) [Volume fraction] 41.7 % Normal 40-54 [facility] Comment on above: Order Comment: 107.1 Performed By: #### L [id number], L500.4100, L100.0500, L500.4050 #### [facility] [address] [place], [address] Hemoglobin (Bld) [Mass/Vol] 14.6 g/dL Normal 13.0-16.5 [facility] Comment on above: Order Comment: 107.1 Performed By: #### L [id number], L500.4100, L100.0500, L500.4050 #### [facility] [address] [place], [address] MCH (RBC) [Entitic mass] 32.4 pg High 27.0-32.0 [facility] Comment on above: Order Comment: 107.1 Performed By: #### L [id number], L500.4100, L100.0500, L500.4050 #### [facility] [address] [place], [address] MCHC (RBC) [Mass/Vol] 35.0 g/dL Normal 32-36 [facility] Comment on above: Order Comment: 107.1 Performed By: #### L [id number], L500.4100, L100.0500, L500.4050 #### [facility] [address] [place], [address] MCV (RBC) [Entitic vol] 92.7 fL Normal 80-94 [facility] Comment on above: Order Comment: 107.1 Performed By: #### L [id number], L500.4100, L100.0500, L500.4050 #### [facility] [address] [place], [address] Platelet mean volume (Bld) [Entitic vol] 11.3 fL Normal 6.2-12.0 [facility] Comment on above: Order Comment: 107.1 Performed By: #### L [id number], L500.4100, L100.0500, L500.4050 #### [facility] [address] [place], [address] Platelets (Bld) [#/Vol] 136 10*3/uL Low 150-450 [facility] Comment on above: Order Comment: 107.1 Performed By: #### L [id number], L500.4100, L100.0500, L500.4050 #### [facility] [address] [place], [address] RBC (Bld) [#/Vol] 4.50 10*6/uL Low 4.6-6.2 [facility] Comment on above: Order Comment: 107.1 Performed By: #### L [id number], L500.4100, L100.0500, L500.4050 #### [facility] [address] [place], [address] RDW SD 43.0 fl Normal 35.1-43.9 [facility] Comment on above: Order Comment: 107.1 Performed By: #### L [id number], L500.4100, L100.0500, L500.4050 #### [facility] [address] [place], [address] WBC (Bld) [#/Vol] 5.9 10*3/uL Normal 4.4-11.0 [facility] Comment on above: Order Comment: 107.1 Performed By: #### L [id number], L500.4100, L100.0500, L500.4050 #### [facility] [address] [place], [address] Carbon dioxide, total [Moles /volume] in Central venous bloodOrdered By: Demetrius Fenton on 07-22-2024 CO2 [Moles/Vol] 21.4 mmol/L 21.0-32.0 [facility] Chloride assayOrdered By: Travis Finch on 07-22-2024 Chloride [Moles/Vol] 97 mmol/L Low 98-108 [facility] Erythrocyte distribution wid th (RBC) [Ratio]Ordered By: Demetrius Fenton on 07-22-2024 Erythrocyte distribution width (RBC) [Entitic vol] 43.0 fL 35.1-43.9 [facility] Erythrocyte distribution wid th ratioOrdered By: Demetrius Fenton on 07-22-2024 Erythrocyte distribution width (RBC) [Ratio] 13.0 % 11.6-14.6 [facility] Erythrocyte distribution wid th standard deviationOrdered By: Demetrius Fenton on 07-22-2024 Erythrocyte distribution width (RBC) [Ratio] 43.0 fl 35.1-43.9 [facility] GFR/1.73 sq M.predicted gabino g non-blacks MDRD (S/P/Bld) [Vol rate/Area]Ordered By: Demetrius Fenton on 07-22-2024 Estimated GFR (MDRD) Non-Af Amer 69 >60 [facility] Comment on above: mL/min/1.73m2 CKD-EP I Creatinine Equation (2020) Glomerular filtration rate ( GFR) estimation/1.73 sq m using serum, plasma, or whole bOrdered By: Demetrius Fenton on 07-22-2024 GFR/1.73 sq M.predicted among non-blacks MDRD (S/P/Bld) [Vol rate/Area] 69 mL/min/{1.73_m2} >60 [facility] Comment on above: mL/min/1.73m2 CKD-EP I Creatinine Equation (2020) Hematocrit Auto (Bld) [Volum e fraction]Ordered By: Demetrius Fenton on 07-22-2024 Hematocrit (Bld) [Volume fraction] 41.7 % 40-54 [facility] Hemoglobin measurementOrdere d By: Demetrius Fenton on 07-22-2024 Hemoglobin (Bld) [Mass/Vol] 14.6 g/dL 13.0-16.5 [facility] MCV (mean corpuscular volume ) determinationOrdered By: Demetrius Fenton on 07-22-2024 MCV (RBC) [Entitic vol] 92.7 fL 80-94 [facility] Mean corpuscular hemoglobin (MCH) determinationOrdered By: Demetrius Fenton on 07-22-2024 MCH (RBC) [Entitic mass] 32.4 pg High 27.0-32.0 [facility] Mean corpuscular hemoglobin concentration (MCHC) determinationOrdered By: Demetrius Fenton on 07-22-2024 MCHC (RBC) [Mass/Vol] 35.0 g/dL 32-36 [facility] Mean platelet volume determi nationOrdered By: Demetrius Fenton on 07-22-2024 Platelet mean volume (Bld) [Entitic vol] 11.3 fL 6.2-12.0 [facility] Platelet countOrdered By: Travis Finch on 07-22-2024 Platelets (Bld) [#/Vol] 136 10*3/uL Low 150-450 [facility] Potassium (Unsp spec) [Mass/ Vol]Ordered By: Demetrius Fenton on 07-22-2024 Potassium [Moles/Vol] 4.4 mmol/L 3.3-5.1 [facility] Potassium measurement (mass/ volume)Ordered By: Demetrius Fenton on 07-22-2024 Potassium (Unsp spec) [Mass/Vol] 4.4 mmol/L 3.3-5.1 [facility] RBC Auto (Bld) [#/Vol]Ordere d By: Demetrius Fenton on 07-22-2024 RBC (Bld) [#/Vol] 4.50 10*6/uL Low 4.6-6.2 [facility] Serum creatinine measurement (mass/volume)Ordered By: Demetrius Fenton on 07-22-2024 Creatinine [Mass/Vol] 1.20 mg/dL 0.70-1.20 [facility] Serum glucose measurement (m ass/volume)Ordered By: Demetrius Fenton on 07-22-2024 Glucose [Mass/Vol] 184 mg/dL High 70-99 [facility] Serum or plasma calcium roseanne urement (mass/volume)Ordered By: Demetrius Fenton on 07-22-2024 Calcium [Mass/Vol] 9.1 mg/dL 7.6-11.0 [facility] Serum or plasma urea nitroge n measurement (mass/volume)Ordered By: Demetrius Fenton on 07-22-2024 Urea nitrogen [Mass/Vol] 13 mg/dL 4-19 [facility] Sodium levelOrdered By: Angel Fenton on 07-22-2024 Sodium [Moles/Vol] 132 mmol/L Low 133-145 [facility] White blood cell (WBC) count Ordered By: Demetrius Fenton on 07-22-2024 WBC (Bld) [#/Vol] 5.9 10*3/uL 4.4-11.0 [facility] CBC-Complete Blood Cnt No Di ffon 07-08-2024 Erythrocyte distribution width (RBC) [Ratio] 13.2 % Normal 11.6-14.6 [facility] Comment on above: Order Comment: 107-1 Performed By: #### L [id number], L500.4100, L100.0500, L500.4050 #### [facility] [address] [place], [address] Hematocrit (Bld) [Volume fraction] 45.3 % Normal 40-54 [facility] Comment on above: Order Comment: 107-1 Performed By: #### L [id number], L500.4100, L100.0500, L500.4050 #### [facility] [address] [place], [address] Hemoglobin (Bld) [Mass/Vol] 15.6 g/dL Normal 13.0-16.5 [facility] Comment on above: Order Comment: 107-1 Performed By: #### L [id number], L500.4100, L100.0500, L500.4050 #### [facility] [address] [place], [address] MCH (RBC) [Entitic mass] 32.0 pg Normal 27.0-32.0 [facility] Comment on above: Order Comment: 107-1 Performed By: #### L [id number], L500.4100, L100.0500, L500.4050 #### [facility] [address] [place], [address] MCHC (RBC) [Mass/Vol] 34.4 g/dL Normal 32-36 [facility] Comment on above: Order Comment: 107-1 Performed By: #### L [id number], L500.4100, L100.0500, L500.4050 #### [facility] [address] [place], [address] MCV (RBC) [Entitic vol] 93.0 fL Normal 80-94 [facility] Comment on above: Order Comment: 107-1 Performed By: #### L [id number], L500.4100, L100.0500, L500.4050 #### [facility] [address] [place], [address] Platelet mean volume (Bld) [Entitic vol] 10.6 fL Normal 6.2-12.0 [facility] Comment on above: Order Comment: 107-1 Performed By: #### L 501.9985, L500.4100, L100.0500, L500.4050 #### [facility] [address] [place], [address] Platelets (Bld) [#/Vol] 139 10*3/uL Low 150-450 [facility] Comment on above: Order Comment: 107-1 Performed By: #### L [id number], L500.4100, L100.0500, L500.4050 #### [facility] [address] [place], [address] RBC (Bld) [#/Vol] 4.87 10*6/uL Normal 4.6-6.2 [facility] Comment on above: Order Comment: 107-1 Performed By: #### L 501.9985, L500.4100, L100.0500, L500.4050 #### [facility] [address] [place], [address] RDW SD 44.1 fl High 35.1-43.9 [facility] Comment on above: Order Comment: 107-1 Performed By: #### L 501.9985, L500.4100, L100.0500, L500.4050 #### [facility] [address] [place], [place], [id number] WBC (Bld) [#/Vol] 7.9 10*3/uL Normal 4.4-11.0 [facility] Comment on above: Order Comment: 107-1 Performed By: #### L 501.9985, L500.4100, L100.0500, L500.4050 #### [facility] [address] [place], [place], [id number] CNOVon 07-08-2024 CNOV Office Visit ([facility] ) MOISES MADRID ([id number]) 1960 M Date Time Provider Department 07/08/24 12:[address] [facility] During your visit today, we recorded the following information about you: Pulse Blood pressure Weight Height 83/minute 114/75 107 kg 1.829 m Chhaya Saldana MD 07/08/2024 10:59 PM Signed FOLLOW UP NOTE Subjective Moises Madrid is [...] (sleep) - Aimovig 140 mg monthly - Griswold 5 mg q8hrs PRN pain (takes around [...] mouth once (more content not included)... Normal [facility] Erythrocyte distribution wid th ratioOrdered By: Demetrius Fenton on 07-08-2024 Erythrocyte distribution width (RBC) [Ratio] 13.2 % 11.6-14.6 [facility] Erythrocyte distribution wid th standard deviationOrdered By: Demetrius Fenton on 07-08-2024 Erythrocyte distribution width (RBC) [Entitic vol] 44.1 fL High 35.1-43.9 [facility] Erythrocyte distribution width (RBC) [Ratio] 44.1 fl High 35.1-43.9 [facility] Hematocrit Auto (Bld) [Volum e fraction]Ordered By: Demetrius Fenton on 07-08-2024 Hematocrit (Bld) [Volume fraction] 45.3 % 40-54 [facility] Hemoglobin measurementOrdere d By: Demetrius Fenton on 07-08-2024 Hemoglobin (Bld) [Mass/Vol] 15.6 g/dL 13.0-16.5 [facility] MCV (mean corpuscular volume ) determinationOrdered By: Demetrius Fenton on 07-08-2024 MCV (RBC) [Entitic vol] 93.0 fL 80-94 [facility] Mean corpuscular hemoglobin (MCH) determinationOrdered By: Demetrius Fenton on 07-08-2024 MCH (RBC) [Entitic mass] 32.0 pg 27.0-32.0 [facility] Mean corpuscular hemoglobin concentration (MCHC) determinationOrdered By: Demetrius Fenton on 07-08-2024 MCHC (RBC) [Mass/Vol] 34.4 g/dL 32-36 [facility] Mean platelet volume determi nationOrdered By: Demetrius Fenton on 07-08-2024 Platelet mean volume (Bld) [Entitic vol] 10.6 fL 6.2-12.0 [facility] Platelet countOrdered By: Travis Finch on 07-08-2024 Platelets (Bld) [#/Vol] 139 10*3/uL Low 150-450 [facility] RBC Auto (Bld) [#/Vol]Ordere d By: Demetrius Fenton on 07-08-2024 RBC (Bld) [#/Vol] 4.87 10*6/uL 4.6-6.2 [facility] Serum or plasma valproate me asurement (mass/volume)Ordered By: Demetrius Fenton on 07-08-2024 Valproate [Mass/Vol] 43 ug/mL Low 50-100 [facility] Comment on above: Valproic Acid concen trations >100 ug/mL are potentially toxic. Valproate [Mass/Vol]Ordered By: Demetrius Fenton on 07-08-2024 Valproic Acid (Depakene) Level 43 ug/mL Low 50-100 [facility] Comment on above: Valproic Acid concen trations >100 ug/mL are potentially toxic. Valproic Acid (Depakene) Lev alison 07-08-2024 VALPROIC ACID 43 ug/mL Low 50-100 [facility] Comment on above: Order Comment: 107-1 Result Comment: Valp roic Acid concentrations >100 ug/mL are potentially toxic. Performed By: #### L 501.9985, L500.4100, L100.0500, L500.4050 #### [facility] [address] [place], [place], [id number] White blood cell (WBC) count Ordered By: Demetrius Fenton on 07-08-2024 WBC (Bld) [#/Vol] 7.9 10*3/uL 4.4-11.0 [facility] BUN/creatinine ratioOrdered By: Demetrius Fenton on 06-10-2024 Urea nitrogen/Creatinine [Mass ratio] 14.5 mg/mg 10-20 [facility] Basic Metabolic Profile (BMP )on 06-10-2024 Anion gap [Moles/Vol] 14 mmol/L Normal 5-15 [facility] Comment on above: Order Comment: 107.1 Performed By: #### L 501.9985, L500.4100, L100.0500, L500.4050 #### [facility] [address] [place], [place], [id number] BUN/CRE 14.5 RATIO Normal 10-20 [facility] Comment on above: Order Comment: 107.1 Performed By: #### L [id number], L500.4100, L100.0500, L500.4050 #### [facility] [address] [place], [address] Calcium [Mass/Vol] 9.5 mg/dL Normal 7.6-11.0 [facility] Comment on above: Order Comment: 107.1 Performed By: #### L 501.9985, L500.4100, L100.0500, L500.4050 #### [facility] [address] [place], [address] Chloride [Moles/Vol] 99 mmol/L Normal 96-108 [facility] Comment on above: Order Comment: 107.1 Performed By: #### L 501.9985, L500.4100, L100.0500, L500.4050 #### [facility] [address] [place], [address] CO2 [Moles/Vol] 24.0 mmol/L Normal 22.0-29.0 [facility] Comment on above: Order Comment: 107.1 Performed By: #### L 501.9985, L500.4100, L100.0500, L500.4050 #### [facility] [address] [place], [address] Creatinine [Mass/Vol] 1.20 mg/dL Normal 0.70-1.20 [facility] Comment on above: Order Comment: 107.1 Performed By: #### L 501.9985, L500.4100, L100.0500, L500.4050 #### [facility] [address] [place], [address] GFR/1.73 sq M.predicted among non-blacks MDRD (S/P/Bld) [Vol rate/Area] 69 mL/min/{1.73_m2} Normal >60 [facility] Comment on above: Order Comment: 107.1 Result Comment: mL/m in/1.73m2 CKD-EPI Creatinine Equation (2020) Performed By: #### L 501.9985, L500.4100, L100.0500, L500.4050 #### [facility] [address] [place], [address] Glucose [Mass/Vol] 107 mg/dL High 70-99 [facility] Comment on above: Order Comment: 107.1 Performed By: #### L 501.9985, L500.4100, L100.0500, L500.4050 #### [facility] [address] [place], [address] Potassium [Moles/Vol] 4.7 mmol/L Normal 3.3-5.1 [facility] Comment on above: Order Comment: 107.1 Result Comment: Hemo lysis present, Results??could be affected. ?? Performed By: #### L 501.9985, L500.4100, L100.0500, L500.4050 #### [facility] [address] [place], [address] Sodium [Moles/Vol] 137 mmol/L Normal 133-145 [facility] Comment on above: Order Comment: 107.1 Performed By: #### L 501.9985, L500.4100, L100.0500, L500.4050 #### [facility] [address] [place], [address] Urea nitrogen [Mass/Vol] 17 mg/dL Normal 4-19 [facility] Comment on above: Order Comment: 107.1 Performed By: #### L 501.9985, L500.4100, L100.0500, L500.4050 #### [facility] [address] [place], [address] CBC-Complete Blood Cnt No Di ffon 06-10-2024 Erythrocyte distribution width (RBC) [Ratio] 13.7 % Normal 11.6-14.6 [facility] Comment on above: Order Comment: 107.1 Performed By: #### L 501.9985, L500.4100, L100.0500, L500.4050 #### [facility] [address] [place], [address] Hematocrit (Bld) [Volume fraction] 44.8 % Normal 40-54 [facility] Comment on above: Order Comment: 107.1 Performed By: #### L 501.9985, L500.4100, L100.0500, L500.4050 #### [facility] [address] [place], [address] Hemoglobin (Bld) [Mass/Vol] 15.5 g/dL Normal 13.0-16.5 [facility] Comment on above: Order Comment: 107.1 Performed By: #### L 501.9985, L500.4100, L100.0500, L500.4050 #### [facility] [address] [place], [address] MCH (RBC) [Entitic mass] 31.9 pg Normal 27.0-32.0 [facility] Comment on above: Order Comment: 107.1 Performed By: #### L 501.9985, L500.4100, L100.0500, L500.4050 #### [facility] [address] [place], [address] MCHC (RBC) [Mass/Vol] 34.6 g/dL Normal 32-36 [facility] Comment on above: Order Comment: 107.1 Performed By: #### L 501.9985, L500.4100, L100.0500, L500.4050 #### [facility] [address] [place], [address] MCV (RBC) [Entitic vol] 92.2 fL Normal 80-94 [facility] Comment on above: Order Comment: 107.1 Performed By: #### L 501.9985, L500.4100, L100.0500, L500.4050 #### [facility] [address] [place], [address] Platelet mean volume (Bld) [Entitic vol] 11.5 fL Normal 6.2-12.0 [facility] Comment on above: Order Comment: 107.1 Performed By: #### L 501.9985, L500.4100, L100.0500, L500.4050 #### [facility] [address] [place], [address] Platelets (Bld) [#/Vol] 130 10*3/uL Low 150-450 [facility] Comment on above: Order Comment: 107.1 Performed By: #### L 501.9985, L500.4100, L100.0500, L500.4050 #### [facility] [address] [place], [address] RBC (Bld) [#/Vol] 4.86 10*6/uL Normal 4.6-6.2 [facility] Comment on above: Order Comment: 107.1 Performed By: #### L 501.9985, L500.4100, L100.0500, L500.4050 #### [facility] [address] [place], [address] RDW SD 45.3 fl High 35.1-43.9 [facility] Comment on above: Order Comment: 107.1 Performed By: #### L 501.9985, L500.4100, L100.0500, L500.4050 #### [facility] [address] [place], [address] WBC (Bld) [#/Vol] 7.7 10*3/uL Normal 4.4-11.0 [facility] Comment on above: Order Comment: 107.1 Performed By: #### L [id number], L500.4100, L100.0500, L500.4050 #### [facility] [address] [place], [address] Carbon dioxide measurementOr dered By: Demetrius Fenton on 06-10-2024 CO2 [Moles/Vol] 24.0 mmol/L 22.0-29.0 [facility] Chloride measurementOrdered By: Demetrius Fenton on 06-10-2024 Chloride [Moles/Vol] 99 mmol/L 96-108 [facility] Erythrocyte distribution wid th ratioOrdered By: Demetrius Fenton on 06-10-2024 Erythrocyte distribution width (RBC) [Ratio] 13.7 % 11.6-14.6 [facility] Erythrocyte distribution wid th standard deviationOrdered By: Demetrius Fenton on 06-10-2024 Erythrocyte distribution width (RBC) [Entitic vol] 45.3 fL High 35.1-43.9 [facility] Erythrocyte distribution width (RBC) [Ratio] 45.3 fl High 35.1-43.9 [facility] GFR/1.73 sq M.predicted gabino g non-blacks MDRD (S/P/Bld) [Vol rate/Area]Ordered By: Demetrius Fenton on 06-10-2024 Estimated GFR (MDRD) Non-Af Amer 69 >60 [facility] Comment on above: mL/min/1.73m2 CKD-EP I Creatinine Equation (2020) Glomerular filtration rate ( GFR) estimation/1.73 sq m using serum, plasma, or whole bOrdered By: Demetrius Fenton on 06-10-2024 GFR/1.73 sq M.predicted among non-blacks MDRD (S/P/Bld) [Vol rate/Area] 69 mL/min/{1.73_m2} >60 [facility] Comment on above: mL/min/1.73m2 CKD-EP I Creatinine Equation (2020) Hematocrit Auto (Bld) [Volum e fraction]Ordered By: Demetrius Fenton on 06-10-2024 Hematocrit (Bld) [Volume fraction] 44.8 % 40-54 [facility] Hemoglobin measurementOrdere d By: Demetrius Fenton on 06-10-2024 Hemoglobin (Bld) [Mass/Vol] 15.5 g/dL 13.0-16.5 [facility] MCV (mean corpuscular volume ) determinationOrdered By: Demetrius Fenton on 06-10-2024 MCV (RBC) [Entitic vol] 92.2 fL 80-94 [facility] Mean corpuscular hemoglobin (MCH) determinationOrdered By: Demetrius Fenton on 06-10-2024 MCH (RBC) [Entitic mass] 31.9 pg 27.0-32.0 [facility] Mean corpuscular hemoglobin concentration (MCHC) determinationOrdered By: Demetrius Fenton on 06-10-2024 MCHC (RBC) [Mass/Vol] 34.6 g/dL 32-36 [facility] Mean platelet volume determi nationOrdered By: Demetrius Fenton on 06-10-2024 Platelet mean volume (Bld) [Entitic vol] 11.5 fL 6.2-12.0 [facility] Platelet countOrdered By: Travis Finch on 06-10-2024 Platelets (Bld) [#/Vol] 130 10*3/uL Low 150-450 [facility] RBC Auto (Bld) [#/Vol]Ordere d By: Demetrius Fenton on 06-10-2024 RBC (Bld) [#/Vol] 4.86 10*6/uL 4.6-6.2 [facility] Serum creatinine measurement (mass/volume)Ordered By: Demetrius Fenton on 06-10-2024 Creatinine [Mass/Vol] 1.20 mg/dL 0.70-1.20 [facility] Serum glucose measurement (m ass/volume)Ordered By: Demetrius Fenton on 06-10-2024 Glucose [Mass/Vol] 107 mg/dL High 70-99 [facility] Serum or plasma anion gap de termination (moles/volume)Ordered By: Demetrius Fenton on 06-10-2024 Anion gap [Moles/Vol] 14 mmol/L 5-15 [facility] Serum or plasma calcium roseanne urement (mass/volume)Ordered By: Demetrius Fenton on 06-10-2024 Calcium [Mass/Vol] 9.5 mg/dL 7.6-11.0 [facility] Serum or plasma potassium me asurementOrdered By: Demetrius Fenton on 06-10-2024 Potassium [Moles/Vol] 4.7 mmol/L 3.3-5.1 [facility] Comment on above: Hemolysis present, R esults could be affected. Serum or plasma sodium measu rement (moles/volume)Ordered By: Demetrius Fenton on 06-10-2024 Sodium [Moles/Vol] 137 mmol/L 133-145 [facility] Serum or plasma urea nitroge n measurement (mass/volume)Ordered By: Demetrius Fenton on 06-10-2024 Urea nitrogen [Mass/Vol] 17 mg/dL 4-19 [facility] White blood cell (WBC) count Ordered By: Demetrius Fenton on 06-10-2024 WBC (Bld) [#/Vol] 7.7 10*3/uL 4.4-11.0 [facility] 37on 04-09-2024 37 Ordered treatment completed and patient is healed. Patient discharged without any issues. All questions answered. Call the clinic if your wound reopens or a new wound appears at [phone] [facility] Progress Noteon 04-09-2024 Progress Note Assessments [...] Test Results/Process Orders 10 [x] Staff telephones [facility], Nursing Homes/Clarify Orders 10 [] Routine Transfer [...] Points) Level 5 (160 or more Points) [facility] Progress Note Subjective Patient ID: Moises [...] on an as-needed basis at this time. [facility] 29on 03-27-2024 29 Encounter addended b y: Marycarmen Corona RN on: 03/28/2024 9:26 AM Actions taken: LDA properties accepted [facility] 37on 03-27-2024 37 Return Appointment i n: 1 week - Should you experience any significant changes in your wound(s) or have any questions regarding your home care instructions please contact the wound center at [phone] If after regular business hours, please call [...] help with wound healing Nursing Care Facility: [facility] Bilateral legs resolved-Facility closed week - Facility [...] and sacral area daily and PRN. Normal [facility] Progress Noteon 03-27-2024 Progress Note Assessments [...] Test Results/Process Orders 10 [] Staff telephones [facility], Nursing Homes/Clarify Orders 10 [x] Routine Transfer [...] Points) Level 5 (160 or more Points) [address] 03-20-2024 37 Return Appointment i n: 1 week - Should you experience any significant changes in your wound(s) or have any questions regarding your home care instructions please contact the wound center at [phone] If after regular business hours, please call [...] help with wound healing Nursing Care Facility: [facility] Wound Treatment to R 2nd toe- Daily [...] and sacral area daily and PRN. Normal [facility] 37on 03-13-2024 37 Return Appointment i n: 1 week - Should you experience any significant changes in your wound(s) or have any questions regarding your home care instructions please contact the wound center at [phone] If after regular business hours, please call [...] help with wound healing Nursing Care Facility: [facility] Wound Treatment to R toes- Daily Cleanse [...] and sacral area daily and PRN. Normal [facility] Albumin to globulin ratioOrd ered By: Demetrius Fenton on 03-13-2024 Albumin/Globulin [Mass ratio] 1.1 {ratio} 0.9-2.4 [facility] Bilirubin, totalOrdered By: Demetrius Fenton on 03-13-2024 Bilirubin [Mass/Vol] 1.10 mg/dL High 0.20-1.00 [facility] Comment on above: For patients on eltr ombopag therapy, use of Dimension [place] TBIL is not recommended. Blood urea nitrogen (BUN)/cr eatinine ratioOrdered By: Demetrius Fenton on 03-13-2024 Urea nitrogen/Creatinine [Mass ratio] 16.0 mg/mg 10-20 [facility] CBC-Complete Blood Cnt No Di ffon 03-13-2024 Erythrocyte distribution width (RBC) [Ratio] 13.2 % Normal 11.6-14.6 [facility] Comment on above: Performed By: #### L [id number], L500.4100, L100.0500, L500.4050 #### [facility] [address] [place], [address] Hematocrit (Bld) [Volume fraction] 44.4 % Normal 40-54 [facility] Comment on above: Performed By: #### L [id number], L500.4100, L100.0500, L500.4050 #### [facility] [address] [place], [address] Hemoglobin (Bld) [Mass/Vol] 15.2 g/dL Normal 13.0-16.5 [facility] Comment on above: Performed By: #### L [id number], L500.4100, L100.0500, L500.4050 #### [facility] [address] [place], [address] MCH (RBC) [Entitic mass] 31.0 pg Normal 27.0-32.0 [facility] Comment on above: Performed By: #### L [id number], L500.4100, L100.0500, L500.4050 #### [facility] [address] [place], [address] MCHC (RBC) [Mass/Vol] 34.2 g/dL Normal 32-36 [facility] Comment on above: Performed By: #### L [id number], L500.4100, L100.0500, L500.4050 #### [facility] [address] [place], [address] MCV (RBC) [Entitic vol] 90.4 fL Normal 80-94 [facility] Comment on above: Performed By: #### L [id number], L500.4100, L100.0500, L500.4050 #### [facility] [address] [place], [address] Platelet mean volume (Bld) [Entitic vol] 10.8 fL Normal 6.2-12.0 [facility] Comment on above: Performed By: #### L 501.9985, L500.4100, L100.0500, L500.4050 #### [facility] [address] [place], [address] Platelets (Bld) [#/Vol] 149 10*3/uL Low 150-450 [facility] Comment on above: Performed By: #### L [id number], L500.4100, L100.0500, L500.4050 #### [facility] [address] [place], [address] RBC (Bld) [#/Vol] 4.91 10*6/uL Normal 4.6-6.2 [facility] Comment on above: Performed By: #### L [id number], L500.4100, L100.0500, L500.4050 #### [facility] [address] [place], [address] RDW SD 42.7 fl Normal 35.1-43.9 [facility] Comment on above: Performed By: #### L [id number], L500.4100, L100.0500, L500.4050 #### [facility] [address] [place], [address] WBC (Bld) [#/Vol] 8.1 10*3/uL Normal 4.4-11.0 [facility] Comment on above: Performed By: #### L [id number], L500.4100, L100.0500, L500.4050 #### [facility] [address] [place], [address] Carbon dioxide measurementOr dered By: Demetrius Fenton on 03-13-2024 CO2 [Moles/Vol] 26.0 mmol/L 21.0-32.0 [facility] Chloride measurementOrdered By: Demetrius Fenton on 03-13-2024 Chloride [Moles/Vol] 104 mmol/L 98-107 [facility] Comprehensive Metabolic Prof ilon 03-13-2024 Albumin [Mass/Vol] 3.5 g/dL Normal 3.2-5.0 [facility] Comment on above: Performed By: #### L 501.9985, L500.4100, L100.0500, L500.4050 #### [facility] [address] [place], [address] Albumin/Globulin [Mass ratio] 1.1 {ratio} Normal 0.9-2.4 [facility] Comment on above: Performed By: #### L [id number], L500.4100, L100.0500, L500.4050 #### [facility] [address] [place], [address] ALK P 65 U/L Normal 45-117 [facility] Comment on above: Performed By: #### L [id number], L500.4100, L100.0500, L500.4050 #### [facility] [address] [place], [address] ALT [Catalytic activity/Vol] 53 U/L Normal 16-61 [facility] Comment on above: Performed By: #### L [id number], L500.4100, L100.0500, L500.4050 #### [facility] [address] [place], [address] AST [Catalytic activity/Vol] 37 U/L Normal 15-37 [facility] Comment on above: Result Comment: Slig ht Hemolysis, Result may be falsely increased. Performed By: #### L 501.9985, L500.4100, L100.0500, L500.4050 #### [facility] [address] [place], [address] Bilirubin [Mass/Vol] 1.10 mg/dL High 0.20-1.00 [facility] Comment on above: Result Comment: For patients on eltrombopag therapy, use of Dimension [place] TBIL is not recommended. Performed By: #### L 501.9985, L500.4100, L100.0500, L500.4050 #### [facility] [address] [place], [address] BUN/CRE 16.0 RATIO Normal 10-20 [facility] Comment on above: Performed By: #### L 501.9985, L500.4100, L100.0500, L500.4050 #### [facility] [address] [place], [address] CA,Total 9.1 mg/dL Normal 8.5-10.1 [facility] Comment on above: Performed By: #### L 501.9985, L500.4100, L100.0500, L500.4050 #### [facility] [address] [place], [address] Chloride [Moles/Vol] 104 mmol/L Normal 98-107 [facility] Comment on above: Performed By: #### L 501.9985, L500.4100, L100.0500, L500.4050 #### [facility] [address] [place], [address] CO2 [Moles/Vol] 26.0 mmol/L Normal 21.0-32.0 [facility] Comment on above: Performed By: #### L 501.9985, L500.4100, L100.0500, L500.4050 #### [facility] [address] [place], [address] Creatinine [Mass/Vol] 1.06 mg/dL Normal 0.70-1.30 [facility] Comment on above: Result Comment: The validity of the calculated GFR GFRAA in patients over 70 years has not been determined. Clinical correlation is essential. Performed By: #### L 501.9985, L500.4100, L100.0500, L500.4050 #### [facility] [address] [place], [address] EST GFR - AA 91 mL/min Normal >60 [facility] Comment on above: Result Comment: Afri can [place] GFR Calc Performed By: #### L 501.9985, L500.4100, L100.0500, L500.4050 #### [facility] [address] [place], [address] GAP 7 Normal 5-15 [facility] Comment on above: Performed By: #### L 501.9985, L500.4100, L100.0500, L500.4050 #### [facility] [address] [place], [address] GFR/1.73 sq M.predicted among non-blacks MDRD (S/P/Bld) [Vol rate/Area] 75 mL/min/{1.73_m2} Normal >60 [facility] Comment on above: Result Comment: Non- GFR Calc Performed By: #### L 501.9985, L500.4100, L100.0500, L500.4050 #### [facility] [address] [place], [address] Globulin (S) [Mass/Vol] 3.2 g/dL Normal 2.2-4.2 [facility] Comment on above: Performed By: #### L 501.9985, L500.4100, L100.0500, L500.4050 #### [facility] [address] [place], [address] Glucose [Mass/Vol] 107 mg/dL High 74-106 [facility] Comment on above: Result Comment: Fast ing Glucose result from 100 to 125 mg/dL suggests IMPAIRED HOMEOSTASIS per A.D.A. criteria. Performed By: #### L 501.9985, L500.4100, L100.0500, L500.4050 #### [facility] [address] [place], [address] Potassium [Moles/Vol] 4.7 mmol/L Normal 3.5-5.1 [facility] Comment on above: Result Comment: Slig ht Hemolysis, Result may be falsely increased. Performed By: #### L 501.9985, L500.4100, L100.0500, L500.4050 #### [facility] [address] [place], [address] Sodium [Moles/Vol] 137 mmol/L Normal 136-145 [facility] Comment on above: Performed By: #### L 501.9985, L500.4100, L100.0500, L500.4050 #### [facility] [address] [place], [address] T PROT 6.7 g/dL Normal 6.4-8.2 [facility] Comment on above: Performed By: #### L 501.9985, L500.4100, L100.0500, L500.4050 #### [facility] [address] [place], [address] Urea nitrogen [Mass/Vol] 17 mg/dL Normal 7-18 [facility] Comment on above: Performed By: #### L 501.9985, L500.4100, L100.0500, L500.4050 #### [facility] [address] [place], [address] Erythrocyte distribution wid th ratioOrdered By: Demetrius Fenton on 03-13-2024 Erythrocyte distribution width (RBC) [Ratio] 13.2 % 11.6-14.6 [facility] Erythrocyte distribution wid th standard deviationOrdered By: Demetrius Fenton on 03-13-2024 Erythrocyte distribution width (RBC) [Entitic vol] 42.7 fL 35.1-43.9 [facility] Estimated glomerular filtrat ion rate (GFR) AmericanOrdered By: Demetrius Fenton on 03-13-2024 Estimated GFR (MDRD) Amer 91 mL/min >60 [facility] Comment on above: GFR Calc Glomerular filtration rate ( GFR) estimationOrdered By: Demetrius Fenton on 03-13-2024 Estimated GFR (MDRD) Non-Af Amer 75 mL/min >60 [facility] Comment on above: Non- GFR Calc Glucose measurementOrdered B y: Demetrius Fenton on 03-13-2024 Glucose [Mass/Vol] 107 mg/dL High 74-106 [facility] Comment on above: Fasting Glucose resu lt from 100 to 125 mg/dL suggests IMPAIRED HOMEOSTASIS per A.D.A. criteria. Hematocrit Auto (Bld) [Volum e fraction]Ordered By: Demetrius Fenton on 03-13-2024 Hematocrit (Bld) [Volume fraction] 44.4 % 40-54 [facility] Hemoglobin A1con 03-13-2024 HbA1c (Bld) [Mass fraction] 6.2 % High 3.8-5.6 [facility] Comment on above: Result Comment: Norm al < 5.7 % Prediabetic 5.7 - 6.4 % Diabetic >or= 6.5 % Please note range changes. Performed By: #### L 501.9985, L500.4100, L100.0500, L500.4050 #### [facility] [address] [place] [address]. [place], [place], [id number] Hemoglobin A1c percentageOrd ered By: Demetrius Fenton on 03-13-2024 HbA1c (Bld) [Mass fraction] 6.2 % High 3.8-5.6 [facility] Comment on above: Normal < 5.7 % Predi abetic 5.7 - 6.4 % Diabetic >or= 6.5 % Please note range changes. Hemoglobin measurementOrdere d By: Demetrius Fenton on 03-13-2024 Hemoglobin (Bld) [Mass/Vol] 15.2 g/dL 13.0-16.5 [facility] High density lipoprotein (HD L) measurementOrdered By: Demetrius Fenton on 03-13-2024 Cholesterol in HDL [Mass/Vol] 41 mg/dL >40 [facility] Comment on above: The drugs N-Acetylcy steine and Metamizole may falsely depress this assay. Reference Range HDL <40 mg/dL Low HDL Cholesterol HDL >or= 60 mg/dL High HDL Cholesterol Laboratory - Chemistry and C hemistry - challengeOrdered By: Demetrius Fenton on 03-13-2024 AST [Catalytic activity/Vol] 37 U/L 15-37 [facility] Comment on above: Slight Hemolysis, Re sult may be falsely increased. Lipid Profileon 03-13-2024 Cholesterol [Mass/Vol] 112 mg/dL Normal 200 [facility] Comment on above: Result Comment: <200 mg/dL Desirable 200-240 mg/dL Borderline >240 mg/dL High Risk Performed By: #### L 501.9985, L500.4100, L100.0500, L500.4050 #### [facility] [address] [place], [address] Cholesterol in HDL [Mass/Vol] 41 mg/dL Normal [facility] Comment on above: Result Comment: The drugs N-Acetylcysteine and Metamizole may falsely depress this assay. Reference Range HDL <40 mg/dL Low HDL Cholesterol HDL >or= 60 mg/dL High HDL Cholesterol Performed By: #### L 501.9985, L500.4100, L100.0500, L500.4050 #### [facility] [address] [place], [address] Cholesterol in LDL [Mass/Vol] 51 mg/dL Normal 0-130 [facility] Comment on above: Performed By: #### L 501.9985, L500.4100, L100.0500, L500.4050 #### [facility] [address] [place], [address] Cholesterol in VLDL [Mass/Vol] 20 mg/dL Normal 5-40 [facility] Comment on above: Performed By: #### L 501.9985, L500.4100, L100.0500, L500.4050 #### [facility] [address] [place], [address] Triglyceride [Mass/Vol] 101 mg/dL Normal [facility] Comment on above: Result Comment: The drugs N-Acetylcysteine and Metamizole may falsely depress this assay. Serum Triglycerides Reference Interval Normal <150 mg/dL Borderline high 150 - 199 mg/dL High 200 - 499 mg/dL Very High > or = 500 mg/dL Performed By: #### L 501.9985, L500.4100, L100.0500, L500.4050 #### [facility] [address] [place], [address] Low density lipoprotein (LDL ) cholesterol measurementOrdered By: Demetrius Fenton on 03-13-2024 Cholesterol in LDL [Mass/Vol] 51 mg/dL 0-130 [facility] MCV (mean corpuscular volume ) determinationOrdered By: Demetrius Fenton on 03-13-2024 MCV (RBC) [Entitic vol] 90.4 fL 80-94 [facility] Mean corpuscular hemoglobin (MCH) determinationOrdered By: Demetrius Fenton on 03-13-2024 MCH (RBC) [Entitic mass] 31.0 pg 27.0-32.0 [facility] Mean corpuscular hemoglobin concentration (MCHC) determinationOrdered By: Demetrius Fenton on 03-13-2024 MCHC (RBC) [Mass/Vol] 34.2 g/dL 32-36 [facility] Mean platelet volume determi nationOrdered By: Demetrius Fenton on 03-13-2024 Platelet mean volume (Bld) [Entitic vol] 10.8 fL 6.2-12.0 [facility] Platelet countOrdered By: Travis Finch on 03-13-2024 Platelets (Bld) [#/Vol] 149 10*3/uL Low 150-450 [facility] Potassium measurementOrdered By: Demetrius Fenton on 03-13-2024 Potassium [Moles/Vol] 4.7 mmol/L 3.5-5.1 [facility] Comment on above: Slight Hemolysis, Re sult may be falsely increased. RBC Auto (Bld) [#/Vol]Ordere d By: Demetrius Fenton on 03-13-2024 RBC (Bld) [#/Vol] 4.91 10*6/uL 4.6-6.2 [facility] Serum anion gap measurementO rdered By: Demetrius Fenton on 03-13-2024 Anion gap [Moles/Vol] 7 mmol/L 5-15 [facility] Serum globulin measurementOr dered By: Demetrius Fenton on 03-13-2024 Globulin (S) [Mass/Vol] 3.2 g/dL 2.2-4.2 [facility] Serum or plasma alanine joy otransferase (ALT) measurementOrdered By: Demetrius Fenton on 03-13-2024 ALT [Catalytic activity/Vol] 53 U/L 16-61 [facility] Serum or plasma albumin roseanne urement (mass/volume)Ordered By: Demetrius Fenton on 03-13-2024 Albumin [Mass/Vol] 3.5 g/dL 3.2-5.0 [facility] Serum or plasma alkaline elsie sphatase measurementOrdered By: Demetrius Fenton on 03-13-2024 ALP [Catalytic activity/Vol] 65 U/L 45-117 [facility] Serum or plasma calcium roseanne urement (mass/volume)Ordered By: Demetrius Fenton on 03-13-2024 Calcium [Mass/Vol] 9.1 mg/dL 8.5-10.1 [facility] Serum or plasma cholesterol measurement (mass/volume)Ordered By: Demetrius Fenton on 03-13-2024 Cholesterol [Mass/Vol] 112 mg/dL <200 [facility] Comment on above: <200 mg/dL Desirable 200-240 mg/dL Borderline >240 mg/dL High Risk Serum or plasma creatinine m easurement (mass/volume)Ordered By: Demetrius Fenton on 03-13-2024 Creatinine [Mass/Vol] 1.06 mg/dL 0.70-1.30 [facility] Comment on above: The validity of the calculated GFR & GFRAA in patients over 70 years has not been determined. Clinical correlation is essential. Serum or plasma urea nitroge n measurement (mass/volume)Ordered By: Demetrius Fenton on 03-13-2024 Urea nitrogen [Mass/Vol] 17 mg/dL 7-18 [facility] Sodium levelOrdered By: Angel Fenton on 03-13-2024 Sodium [Moles/Vol] 137 mmol/L 136-145 [facility] Total proteinOrdered By: Miriam Fenton on 03-13-2024 Protein [Mass/Vol] 6.7 g/dL 6.4-8.2 [facility] Triglycerides measurementOrd ered By: Demetrius Fenton on 03-13-2024 Triglyceride [Mass/Vol] 101 mg/dL <199 [facility] Comment on above: The drugs N-Acetylcy steine and Metamizole may falsely depress this assay.Serum Triglycerides Reference Interval Normal <150 mg/dL Borderline high 150 - 199 mg/dL High 200 - 499 mg/dL Very High > or = 500 mg/dL Very low density lipoprotein (VLDL) cholesterol measurementOrdered By: Demetrius Fenton on 03-13-2024 VLDL Cholesterol 20 mg/dL 5-40 [facility] White blood cell (WBC) count Ordered By: Demetrius Fenton on 03-13-2024 WBC (Bld) [#/Vol] 8.1 10*3/uL 4.4-11.0 [facility] 37on 03-06-2024 37 Return Appointment i n: 1 week - Should you experience any significant changes in your wound(s) or have any questions regarding your home care instructions please contact the wound center at [phone] If after regular business hours, please call [...] help with wound healing Nursing Care Facility: [facility] Wound Treatment to R toes- Daily Cleanse [...] buttocks and sacral area daily and PRN. [facility] 37on 02-28-2024 37 Return Appointment i n: 1 week - Should you experience any significant changes in your wound(s) or have any questions regarding your home care instructions please contact the wound center at [phone] If after regular business hours, please call [...] lite applied for prevention. Nursing Care Facility: [facility] Wound Treatment to R toes- Daily Cleanse [...] buttocks and sacral area daily and PRN. [facility] No Panel Informationon 02-27 Julissa Taylor DO 02/28/2024 1:11 PM Debridement Wound/Incision 02/21/24 Venous Ulcer Pretibial Left Performed by: Julissa Taylor DO Authorized by: Julissa Taylor, DO Consent Consent obtained? verbal Consent given by: patient Risks discussed? procedural risks discussed Immediately prior to the procedure a time out was called and the performing provider verified the correct patient, procedure, equipment, technical support coordinator, and site/side marked as required. Debridement Details [...] Response to treatment: procedure was tolerated well [facility] 37on 02-21-2024 37 Return Appointment i n: 1 week - Should you experience any significant changes in your wound(s) or have any questions regarding your home care instructions please contact the wound center at [phone] If after regular business hours, please call [...] lite applied for prevention. Nursing Care Facility: [facility] Wound Treatment to R toes- Daily Cleanse [...] and sacral area daily and PRN. Normal [facility] CBC W Auto Differential pane l (Bld)on 02-18-2024 Basophils (Bld) [#/Vol] 0.1 10*3/uL 0.0 - 0.2 10*3/uL [facility] Basophils/100 WBC (Bld) 0.8 % 0.0 - 2.0 % [facility] Eosinophils (Bld) [#/Vol] 0.2 10*3/uL 0.0 - 0.5 10*3/uL [facility] Eosinophils/100 WBC (Bld) 2.8 % 0.0 - 6.0 % [facility] Erythrocyte distribution width (RBC) [Ratio] 13.2 % 11.5 - 15.0 % [facility] Hematocrit (Bld) [Volume fraction] 49.2 % 40.0 - 52.0 % [facility] Hemoglobin (Bld) [Mass/Vol] 16.9 g/dL 13.0 - 18.0 g/dL [facility] Immature granulocytes (Bld) [#/Vol] 0.1 10*3/uL High NINF - 0.1 10*3/uL [facility] Immature granulocytes/100 WBC (Bld) 0.6 % 0.0 - 2.0 % [facility] Interpretation and review of laboratory results Abnormal [facility] IPF 4 [facility] Lymphocytes (Bld) [#/Vol] 2.7 10*3/uL 1.0 - 4.3 10*3/uL [facility] Lymphocytes/100 WBC (Bld) 35 % 15.0 - 45.0 % [facility] MCH (RBC) [Entitic mass] 31 pg 26.0 - 34.0 pg [facility] MCHC (RBC) [Mass/Vol] 34.3 % 30.5 - 36.0 % [facility] MCV (RBC) [Entitic vol] 90.1 fL 77.0 - 99.0 fL [facility] Monocytes (Bld) [#/Vol] 0.6 10*3/uL 0.0 - 0.9 10*3/uL [facility] Monocytes/100 WBC (Bld) 7.6 % 5.0 - 13.0 % [facility] Neutrophils (Bld) [#/Vol] 4.1 10*3/uL 1.8 - 7.5 10*3/uL [facility] Neutrophils/100 WBC (Bld) 53.2 % 38.0 - 82.0 % [facility] Nucleated RBC/100 WBC (Bld) [Ratio] 0 % [facility] Platelet mean volume (Bld) [Entitic vol] 10.9 fL 9.0 - 12.7 fL [facility] Platelets (Bld) [#/Vol] 133 10*3/uL Low 140 - 440 10*3/uL [facility] RBC (Bld) [#/Vol] 5.46 10*6/uL 4.40 - 5.9 0 10*6/uL [facility] WBC (Bld) [#/Vol] 7.8 10*3/uL 3.6 - 10.7 10*3/uL [facility] CBC WITH AUTO DIFFERENTIALon 02-18-2024 Basophils (Bld) [#/Vol] 0.1 10*3/uL Normal 0.0-0.2 [facility] Comment on above: Performed By: #### L [id number] #### [employer]: SHARLA FINNEY ([id number]) [facility] ([facility]) [address] [place] [address] Basophils/100 WBC (Bld) 0.8 % Normal 0.0-2.0 [facility] Comment on above: Performed By: #### L [id number] #### [employer]: SHARLA FINNEY ([phone]) [facility] ([facility]) [address] [place] [address] Eosinophils (Bld) [#/Vol] 0.2 10*3/uL Normal 0.0-0.5 [facility] Comment on above: Performed By: #### L [id number] #### [employer]: SHARLA FINNEY ([id number]) [facility] ([facility]) [address] [place] [address] Eosinophils/100 WBC (Bld) 2.8 % Normal 0.0-6.0 [facility] Comment on above: Performed By: #### L [id number] #### [employer]: SHARLA FINNEY ([phone]) [facility]) [address] [place] [address] Erythrocyte distribution width (RBC) [Ratio] 13.2 % Normal 11.5-15.0 [facility] Comment on above: Performed By: #### L [id number] #### [employer]: SHARLA [id number]) [facility] ([facility]) [address] [place] [address] Hematocrit (Bld) [Volume fraction] 49.2 % Normal 40.0-52.0 [facility] Comment on above: Performed By: #### L [id number] #### [employer]: SHARLA FINNEY ([id number]) [facility] ([facility]) [address] [place] [address] Hemoglobin (Bld) [Mass/Vol] 16.9 g/dL Normal 13.0-18.0 [facility] Comment on above: Performed By: #### L [id number] #### [employer]: SHARLA FINNEY ([id number]) [facility]) [address] [place] [address] IMMATURE GRANS % 0.6 % Normal 0.0-2.0 [facility] Comment on above: Performed By: #### L [id number] #### [employer]: SHARLA FINNEY ([phone]) [facility] ([facility]) [address] [place] [address] IMMATURE GRANS ABSOLUTE 0.1 10*3/uL High <0.1 [facility] Comment on above: Performed By: #### L [id number] #### [employer]: SHARLA FINNEY ([phone]) [facility] ([facility]) [address] [place] [address] [place] IPF 4 Normal [facility] Comment on above: Performed By: #### L [id number] #### [employer]: SHARLA FINNEY ([id number]) [facility] ([facility]) [address] [place] [address] [place] Lymphocytes (Bld) [#/Vol] 2.7 10*3/uL Normal 1.0-4.3 [facility] Comment on above: Performed By: #### L [id number] #### [employer]: SHARLA FINNEY ([phone]) [facility] ([facility]) [address] [place] [address] [place] Lymphocytes/100 WBC (Bld) 35.0 % Normal 15.0-45.0 [facility] Comment on above: Performed By: #### L [id number] #### [employer]: SHARLA FINNEY ([id number]) [facility] ([facility]) [address] [place] [address] MCH (RBC) [Entitic mass] 31.0 pg Normal 26.0-34.0 [facility] Comment on above: Performed By: #### L [id number] #### [employer]: SHARLA FINNEY ([id number]) [facility] ([facility]) [address] [place] [address] MCHC 34.3 % Normal 30.5-36.0 [facility] Comment on above: Performed By: #### L [id number] #### [employer]: SHARLA FINNEY ([id number]) [facility] ([facility]) [address] [place] [address] MCV (RBC) [Entitic vol] 90.1 fL Normal 77.0-99.0 [facility] Comment on above: Performed By: #### L [id number] #### [employer]: SHARLA FINNEY ([id number]) [facility] ([facility]) [address] [place] [address] Monocytes (Bld) [#/Vol] 0.6 10*3/uL Normal 0.0-0.9 [facility] Comment on above: Performed By: #### L [id number] #### [employer]: SHARLA FINNEY ([id number]) [facility] ([facility]) [address] [place] [address] Monocytes/100 WBC (Bld) 7.6 % Normal 5.0-13.0 [facility] Comment on above: Performed By: #### L [id number] #### [employer]: SHARLA FINNEY ([phone]) [facility] ([facility]) [address] [place] [address] NEUTROPHILS ABSOLUTE 4.1 10*3/uL Normal 1.8-7.5 [facility] Comment on above: Performed By: #### L [id number] #### [employer]: SHARLA FINNEY ([phone]) [facility] [address] [place] [address] Neutrophils/100 WBC (Bld) 53.2 % Normal 38.0-82.0 [facility] Comment on above: Performed By: #### L [id number] #### [employer]: SHARLA FINNYE ([id number]) [facility] [address] [place] [address] NRBC 0.0 /100 WBCs Normal 0.0-2.0 [facility] Comment on above: Performed By: #### L [id number] #### [employer]: SHARLA FINNEY ([phone]) [facility] ([facility]) [address] [place] [address] Platelet mean volume (Bld) [Entitic vol] 10.9 fL Normal 9.0-12.7 [facility] Comment on above: Performed By: #### L [id number] #### [employer]: SHARLA FINNEY ([id number]) [facility] [address] [place] [address] Platelets (Bld) [#/Vol] 133 10*3/uL Low 140-440 [facility] Comment on above: Performed By: #### L [id number] #### [employer]: SHARLA FINNEY ([phone]) [facility] [address] [place] [address] RBC (Bld) [#/Vol] 5.46 10*6/uL Normal 4.40-5.90 [facility] Comment on above: Performed By: #### L [id number] #### [employer]: SHARLA FINNEY ([id number]) [facility] [address] [place] [address] [place] WBC (Bld) [#/Vol] 7.8 10*3/uL Normal 3.6-10.7 [facility] Comment on above: Performed By: #### L [id number] #### [employer]: SHARLA FINNEY ([phone]) [facility] [address] [place] [address] COMPREHENSIVE METABOLIC PANE Micah 02-18-2024 Albumin [Mass/Vol] 4.7 g/dL Normal 3.5-5.0 [facility] Comment on above: Performed By: #### L [id number] #### [employer]: SHARLA FINNEY ([id number]) [facility] ([facility]) [address] [place] [address] ALP [Catalytic activity/Vol] 68 U/L Normal 38-126 [facility] Comment on above: Performed By: #### L [id number] #### [employer]: SHARLA FINNEY ([id number]) [facility] ([facility]) [address] [place] [address] ALT [Catalytic activity/Vol] 52 U/L High 0-49 [facility] Comment on above: Performed By: #### L [id number] #### [employer]: SHARLA FINNEY ([id number]) [facility] ([facility]) [address] [place] [address] Anion gap [Moles/Vol] 6 mmol/L Normal 3-13 [facility] Comment on above: Performed By: #### L [id number] #### [employer]: SHARLA FINNEY ([id number]) [facility] ([facility]) [address] [place] [address] AST [Catalytic activity/Vol] 48 U/L High 15-46 [facility] Comment on above: Performed By: #### L [id number] #### [employer]: SHARLA FINNEY ([phone]) [facility] ([facility]) [address] [place] [address] [place] Bilirubin [Mass/Vol] 1.4 mg/dL High 0.2-1.3 [facility] Comment on above: Performed By: #### L [id number] #### [employer]: SHARLA FINNEY ([phone]) [facility]) [address] [place] [address] Calcium [Mass/Vol] 9.6 mg/dL Normal 8.4-10.4 [facility] Comment on above: Performed By: #### L [id number] #### [employer]: SHARLA FINNEY ([phone]) [facility] ([facility]) [address] [place] [address] [place] Chloride [Moles/Vol] 100 mmol/L Normal 98-107 [facility] Comment on above: Performed By: #### L [id number] #### [employer]: SHARLA FINNEY ([id number]) [facility] [address] [place] [address] [place] CO2 [Moles/Vol] 30 mmol/L Normal 22-30 [facility] Comment on above: Performed By: #### L [id number] #### [employer]: SHARLA FINNEY ([id number]) [facility] ([facility]) [address] [place] [address] Creatinine [Mass/Vol] 0.99 mg/dL Normal 0.66-1.25 [facility] Comment on above: Performed By: #### L [id number] #### [employer]: SHARLA FINNEY ([id number]) [facility] [address] [place] [address] GLOMERULAR FILTRATION RATE ML/MIN/1.73 SQ M.PREDICTED 86.7 mL/min/1.73m*2 Normal >60.0 [facility] Comment on above: Result Comment: Calc ulation based on the Chronic Kidney Disease Epidemiology Collaboration (CKD-EPI) equation refit without adjustment for race Performed By: #### L [id number] #### [employer]: SHARLA FINNEY ([id number]) [facility] [address] [place] [address] [place] Glucose [Mass/Vol] 104 mg/dL High 70-100 [facility] Comment on above: Performed By: #### L [id number] #### [employer]: SHARLA FINNEY ([id number]) [facility] ([facility]) [address] [place] [address] Potassium [Moles/Vol] 4.5 mmol/L Normal 3.5-5.1 [facility] Comment on above: Performed By: #### L [id number] #### [employer]: SHARLA FINNEY ([phone]) [facility] ([facility]) [address] [place] [address] Protein [Mass/Vol] 8.0 g/dL Normal 6.3-8.2 [facility] Comment on above: Performed By: #### L [id number] #### [employer]: SHARLA FINNEY ([phone]) [facility]) [address] [place] [address] Sodium [Moles/Vol] 135 mmol/L Normal 135-145 [facility] Comment on above: Performed By: #### L [id number] #### [employer]: SHARLA FINNEY ([id number]) [facility]) [address] [place] [address] Urea nitrogen [Mass/Vol] 18 mg/dL Normal 9-20 [facility] Comment on above: Performed By: #### L [id number] #### [employer]: SHARLA FINNEY ([phone]) [facility]) [address] [place] [address] CT HEAD WO IV CONTRASTon CT HEAD [...] was not included. Pt presents with headache, 12/18, from snf, unsure was if he was given any meds at snf, alert and oriented x3, disoriented to year, oriented to month, according to care home he received norco and tylenol w no relief, per [facility] states he has constant headache Normal [facility] CT Head WO contraston 2023 No acute intracrania l hemorrhage or territorial infarct. Findings suggestive of acute and chronic paranasal sinusitis. Report Dictated on Electronically Signed By: Jus Barlow DR Electronically Signed Date/Time: 02/18/2024 1:49 AM [employer] [facility] Patient Name: MOIS[facility] VERONICA : 1960 [id number] Exam Date/Time: 02/18/2024 01:41 Procedure: CT HEAD [...] frontal sinus and left ethmoid air cells. [facility] Jus Barlow MD - 02/18/2024 Patient Name: MOISES MADRID : 1960 [facility]#: [id number] Exam Date/Time: 02/18/2024 01:41 Procedure: CT HEAD [...] Electronically Signed Date/Time: 02/18/2024 1:49 AM EST [facility] [employer] Radiology Study observation (narrative) [facility] CT Head WO contrastOrdered B y: Jus Barlow on 02-18-2024 [employer] Work Phone: Comprehensive metabolic 1998 panelon 02-18-2024 Albumin [Mass/Vol] 4.7 g/dL 3.5 - 5.0 g/dL [employer] ALP [Catalytic activity/Vol] 68 U/L 38 - 126 U/L [facility] [employer] ALT [Catalytic activity/Vol] 52 U/L High 0 - 49 U/L [facility] [employer] Anion gap [Moles/Vol] 6 mmol/L 3 - 13 mmol/L [facility] AST [Catalytic activity/Vol] 48 U/L High 15 - 46 U/L [facility] Bilirubin [Mass/Vol] 1.4 mg/dL High 0.2 - 1 .3 mg/dL [facility] Calcium [Mass/Vol] 9.6 mg/dL 8.4 - 10. 4 mg/dL [facility] Chloride [Moles/Vol] 100 mmol/L 98 - 10 7 mmol/L [facility] CO2 [Moles/Vol] 30 mmol/L 22 - 30 mmol/L [facility] Creatinine [Mass/Vol] 0.99 mg/dL 0.66 - 1.25 mg/dL [facility] GFR/1.73 sq M.predicted (S/P/Bld) [Vol rate/Area] 86.7 mL/min - PINF [facility] Comment on above: Calculation based on the Chronic Kidney Disease Epidemiology Collaboration (CKD-EPI) equation refit without adjustment for race Glucose [Mass/Vol] 104 mg/dL High 70 - 100 mg/dL [facility] Interpretation and review of laboratory results Abnormal [facility] Potassium [Moles/Vol] 4.5 mmol/L 3.5 - 5.1 mmol/L [facility] Protein [Mass/Vol] 8 g/dL 6.3 - 8.2 g/dL [facility] Sodium [Moles/Vol] 135 mmol/L 135 - 145 mmol/L [facility] Urea nitrogen [Mass/Vol] 18 mg/dL 9 - 20 mg/dL [facility] ED Nursing Noteon 02-18-2024 ED Nursing Note Aamir bernard at bedside Normal [facility] ED Nursing Note Report called to snf at this time Normal [facility] ED Nursing Note Pt presents with headache, 12/18, from snf, unsure was if he was given any meds at snf, alert and oriented x3, disoriented to year, oriented to month, according to care home he received norco and tylenol w no relief, per snf states he has constant headache Normal [facility] ED Provider Noteon ED Provider Note [...] of headache that was not relieved with Griswold or Tylenol this [facility] at the [facility]. The [facility] facility sent him to the emergency department to be evaluated for his intractable headache. Nursing Notes were reviewed. Limitations to history: Altered mental status/confusion Outside historians: snf facility REVIEW OF SYSTEMS Review of Systems [...] response syndrome) (HCC) TBI (traumatic brain injury) ([facility]) Venous insufficiency SURGICAL HISTORY Past Surgical History: [...] MG CAPSULE CHOLECALCIFEROL (VITAMIN D3) 1.25 MG (27870 UT) TABLET Take by mouth 1 (one) [...] times daily (more content not included)... Normal [facility] Laboratory - Coagulationon 1 04-19-2023 aPTT Coag (PPP) [Time] 25 s 20.0 - 30.5 s [facility] INR Coag (PPP) [Relative time] 1.1 {INR} 0.9 - 1.1 [facility] Comment on above: Recommended Anticoag ulant Therapy: [...] 11.9 s 9.0 - 1 2.0 s [facility] No Panel Informationon 02-17 Interpretation and review of laboratory results Normal [facility] PROTIME AND APTTon aPTT Coag (Bld) [Time] 25.0 s Normal 20.0-30.5 [facility] Comment on above: Performed By: #### L [id number] ####[employer]: SATYA BRANNON ([id number])[facility] [place] [address] INR Coag (PPP) [Relative time] 1.1 {INR} Normal 0.9-1.1 [facility] Comment on above: Result Comment: Saulo [...] prevent Myocardial Infarction Performed By: #### L [id number] ####[employer]: SATYA BRANNON ([id number])[facility] ([facility])[address] PT Coag (PPP) [Time] 11.9 s Normal 9.0-12.0 [facility] Comment on above: Performed By: #### L [id number] ####[employer]: SATYA GONZALEZCER ([id number])[facility] ([facility])[address] 02-14-2024 29 Encounter addended b y: Marycarmen Corona RN on: 02/15/2024 9:48 AM Actions taken: Charge Capture section accepted Normal [facility] 3702-14-2024 37 Return Appointment i n: 1 week - Should you experience any significant changes in your wound(s) or have any questions regarding your home care instructions please contact the wound center at [phone] If after regular business hours, please call [...] lite applied for prevention. [facility] to R toes- Daily Cleanse [...] and sacral area daily and PRN. Normal [facility] 02-07-2024 29 Encounter addended b y: Marycarmen Corona RN on: 02/07/2024 10:59 AM Actions taken: Charge Capture section accepted [facility] 29 Encounter addended b y: Adriana Barbosa MA on: 02/07/2024 10:26 AM Actions taken: Flowsheet accepted [facility] 37on 02-07-2024 37 Return Appointment i n: 1 week - Should you experience any significant changes in your wound(s) or have any questions regarding your home care instructions please contact the wound center at [phone] If after regular business hours, please call [...] Take antibiotic as directed Nursing Care Facility: [facility] Wound Treatment to R toes- Daily Cleanse [...] buttocks and sacral area daily and PRN. [facility] 29on 01-31-2024 29 Encounter addended b y: Marycarmen Corona RN on: 02/02/2024 10:55 AM Actions taken: Charge Capture section accepted [facility] 37on 01-31-2024 37 Return Appointment i n: 1 week - Should you experience any significant changes in your wound(s) or have any questions regarding your home care instructions please contact the wound center at [phone] If after regular business hours, please call [...] Take antibiotic as directed Nursing Care Facility: [facility] Wound Treatment to R toes- Daily Cleanse [...] and sacral area daily and PRN. Normal [facility] Valproic Acid (Depakene) Lev alison 01-29-2024 VALPROIC ACID 72 ug/mL Normal 50-100 [facility] Comment on above: Order Comment: 107-1 Performed By: #### L [id number] #### [facility] [address] [place], [address] 29on 01-24-2024 29 Encounter addended b y: Marycarmen Corona RN on: 01/30/2024 3:44 PM Actions taken: LDA properties accepted, Charge Capture section accepted [facility] 01-24-2024 PATINS Return Appointment i n: 1 week - Should you experience any significant changes in your wound(s) or have any questions regarding your home care instructions please contact the wound center at [phone] If after regular business hours, please call [...] Take antibiotic as directed Nursing Care Facility: [facility] Wound Treatment to R toes- Daily Cleanse [...] buttocks and sacral area daily and PRN. [facility] 01-17-2024 PATINS Return Appointment i n: 1 week - Should you experience any significant changes in your wound(s) or have any questions regarding your home care instructions please contact the wound center at [phone] If after regular business hours, please call [...] Take antibiotic as directed Nursing Care Facility: [facility] Wound Treatment to R toes- Daily Cleanse [...] and sacral area daily and PRN. Normal [facility] PATINSon 01-10-2024 PATINS Return Appointment i n: 1 week - Should you experience any significant changes in your wound(s) or have any questions regarding your home care instructions please contact the wound center at [phone] If after regular business hours, please call [...] Take antibiotic as directed Nursing Care Facility: [facility] Wound Treatment to R toes- Daily Cleanse [...] and sacral area daily and PRN. Normal [facility] CBC-Complete Blood Cnt No Di ffon 01-09-2024 Erythrocyte distribution width (RBC) [Ratio] 13.2 % Normal 11.6-14.6 [facility] Comment on above: Order Comment: 107.1 Performed By: #### L [id number], L500.4100, L100.0500 #### [facility] [address] [place], [address] Hematocrit (Bld) [Volume fraction] 45.1 % Normal 40-54 [facility] Comment on above: Order Comment: 107.1 Performed By: #### L [id number], L500.4100, L100.0500 #### [facility] [address] [place], [address] Hemoglobin (Bld) [Mass/Vol] 15.3 g/dL Normal 13.0-16.5 [facility] Comment on above: Order Comment: 107.1 Performed By: #### L [id number], L500.4100, L100.0500 #### [facility] [address] [place], [address] MCH (RBC) [Entitic mass] 30.4 pg Normal 27.0-32.0 [facility] Comment on above: Order Comment: 107.1 Performed By: #### L [id number], L500.4100, L100.0500 #### [facility] [address] [place], [address] MCHC (RBC) [Mass/Vol] 33.9 g/dL Normal 32-36 [facility] Comment on above: Order Comment: 107.1 Performed By: #### L [id number], L500.4100, L100.0500 #### [facility] [address] [place], [address] MCV (RBC) [Entitic vol] 89.5 fL Normal 80-94 [facility] Comment on above: Order Comment: 107.1 Performed By: #### L [id number], L500.4100, L100.0500 #### [facility] [address] [place], [address] Platelet mean volume (Bld) [Entitic vol] 10.9 fL Normal 6.2-12.0 [facility] Comment on above: Order Comment: 107.1 Performed By: #### L [id number], L500.4100, L100.0500 #### [facility] [address] [place], [address] Platelets (Bld) [#/Vol] 133 10*3/uL Low 150-450 [facility] Comment on above: Order Comment: 107.1 Performed By: #### L [id number], [id number], L100.0500 #### [facility] [address] [place], [address] RBC (Bld) [#/Vol] 5.04 10*6/uL Normal 4.6-6.2 [facility] Comment on above: Order Comment: 107.1 Performed By: #### L 501.8100, L500.4100, L100.0500 #### [facility] [address] [place], [address] RDW SD 41.9 fl Normal 35.1-43.9 [facility] Comment on above: Order Comment: 107.1 Performed By: #### L 501.8100, L500.4100, L100.0500 #### [facility] [address] [place], [address] WBC (Bld) [#/Vol] 7.0 10*3/uL Normal 4.4-11.0 [facility] Comment on above: Order Comment: 107.1 Performed By: #### L [id number], L500.4100, L100.0500 #### [facility] [address] [place], [address] Lipid Profileon 01-09-2024 Cholesterol [Mass/Vol] 122 mg/dL Normal 200 [facility] Comment on above: Order Comment: 107.1 Result Comment: <200 mg/dL Desirable 200-240 mg/dL Borderline >240 mg/dL High Risk Performed By: #### L 501.8100, L500.4100, L100.0500 #### [facility] [address] [place], [address] Cholesterol in HDL [Mass/Vol] 46 mg/dL Normal [facility] Comment on above: Order Comment: 107.1 Result Comment: The drugs N-Acetylcysteine and Metamizole may falsely depress this assay. Reference Range HDL <40 mg/dL Low HDL Cholesterol HDL >or= 60 mg/dL High HDL Cholesterol Performed By: #### L [id number], L500.4100, L100.0500 #### [facility] [address] [place], [address] Cholesterol in LDL [Mass/Vol] 44 mg/dL Normal 0-130 [facility] Comment on above: Order Comment: 107.1 Performed By: #### L 501.8100, L500.4100, L100.0500 #### [facility] [address] [place], [address] Cholesterol in VLDL [Mass/Vol] 32 mg/dL Normal 5-40 [facility] Comment on above: Order Comment: 107.1 Performed By: #### L 501.8100, L500.4100, L100.0500 #### [facility] [address] [place], [address] Triglyceride [Mass/Vol] 158 mg/dL Normal [facility] Comment on above: Order Comment: 107.1 Result Comment: The drugs N-Acetylcysteine and Metamizole may falsely depress this assay. Serum Triglycerides Reference Interval Normal <150 mg/dL Borderline high 150 - 199 mg/dL High 200 - 499 mg/dL Very High > or = 500 mg/dL Performed By: #### L 501.8100, L500.4100, L100.0500 #### [facility] [address] [place], [place], [address] Valproic Acid (Depakene) Lev alison 01-09-2024 VALPROIC ACID 62 ug/mL Normal 50-100 [facility] Comment on above: Order Comment: 107.1 Performed By: #### L 501.8100, L500.4100, L100.0500 #### [facility] [address] [place], [place], [id number] [facility] Appointment i n: 1 week - Should you experience any significant changes in your wound(s) or have any questions regarding your home care instructions please contact the wound center at [phone] If after regular business hours, please call [...] Take antibiotic as directed Nursing Care Facility: [facility] Wound Treatment to R toes- Daily Cleanse [...] and sacral area daily and PRN. [facility] Return Appointment i n: 1 week - Should you experience any significant changes in your wound(s) or have any questions regarding your home care instructions please contact the wound center at [phone] If after regular business hours, please call [...] Take antibiotic as directed Nursing Care Facility: [facility] Treatment to R toes- Daily Cleanse [...] buttocks and sacral area daily and PRN. [facility] 12-20-2023 [facility] Return Appointment i n: 1 week - Should you experience any significant changes in your wound(s) or have any questions regarding your home care instructions please contact the wound center at [phone] If after regular business hours, please call [...] Take antibiotic as directed Nursing Care Facility: [facility] Wound Treatment to R toes- Daily Cleanse [...] buttocks and sacral area daily and PRN. [facility] 12-13-2023 [facility] Return Appointment i n: 1 week - Should you experience any significant changes in your wound(s) or have any questions regarding your home care instructions please contact the wound center at [phone] If after regular business hours, please call [...] Take antibiotic as directed Nursing Care Facility: [facility] Wound Treatment to R toes- Daily Cleanse [...] buttocks and sacral area daily and PRN. [facility] 12-06-2023 [facility] Return Appointment i n: 1 week - Should you experience any significant changes in your wound(s) or have any questions regarding your home care instructions please contact the wound center at [phone] If after regular business hours, please call [...] Take antibiotic as directed Nursing Care Facility: [facility]ound Treatment to R toes- Daily Cleanse [...] buttocks and sacral area daily and PRN. [facility] 11-29-2023 [facility] Return Appointment i n: 1 week - Should you experience any significant changes in your wound(s) or have any questions regarding your home care instructions please contact the wound center at [phone] If after regular business hours, please call [...] Take antibiotic as directed Nursing Care Facility: [facility] Wound Treatment to R toes- Daily Cleanse [...] and sacral area daily and PRN. Normal [facility] No Panel Informationon 11-21 Julissa Taylor DO 11/22/2023 11:40 AM Debridement Wound/Incision 11/15/23 Venous Ulcer Leg Right;Lower;Anterior;La teral Performed by: Julissa Taylor DO Authorized by: Julissa Taylor DO Consent Consent obtained? verbal Consent given by: patient Risks discussed? procedural risks discussed Immediately prior to the procedure a time out was called and the performing provider verified the correct patient, procedure, equipment, technical support coordinator, and site/side marked as required. Debridement Details [...] Response to treatment: procedure was tolerated well [facility]on 11-22-2023 [facility] Return Appointment i n: 1 week - Should you experience any significant changes in your wound(s) or have any questions regarding your home care instructions please contact the wound center at [phone] If after regular business hours, please call [...] Take antibiotic as directed Nursing Care Facility: [facility]ound Treatment to R toes- Daily Cleanse [...] and sacral area daily and PRN. Normal [facility] Progress Noteon 11-17-2023 Progress Note [facility] Nurse Visit Note Moises Madrid AGE: 62 [...] stable condition. Ambulatory Status: Wheelchair Discharge Destination: [facility] facility Transportation: Private Auto Accompanied by: caregiver Schedule Follow up Appointment: no No orders of the defined types were placed in this encounter. [facility] 11-15-2023 [facility] Return Appointment i n: 1 week - Should you experience any significant changes in your wound(s) or have any questions regarding your home care instructions please contact the wound center at [phone] If after regular business hours, please call [...] Take antibiotic as directed Nursing Care Facility: [facility] Wound Treatment to R toes- Daily Cleanse [...] buttocks and sacral area daily and PRN. [facility] Progress Noteon 11-15-2023 Progress Note Assessments Nursing [...] Test Results/Process Orders 10 [] Staff telephones [facility], Nursing Homes/Clarify Orders 10 [] Routine Transfer [...] Points) Level 5 (160 or more Points) [facility] 11-08-2023 [facility] Return Appointment i n: 1 week - Should you experience any significant changes in your wound(s) or have any questions regarding your home care instructions please contact the wound center at [phone] If after regular business hours, please call [...] Take antibiotic as directed Nursing Care Facility: [facility]ound Treatment to R toes and R leg: Daily Cleanse wound with mild soap and water and pat dry. Apply Calcium Alginate Apply dry dressing to cover the wound and secure with tape. 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 [facility] Progress Noteon 11-08-2023 Progress Note Assessments [...] Test Results/Process Orders 10 [x] Staff telephones [facility], Nursing Homes/Clarify Orders 10 [x] Routine Transfer [...] Points) Level 5 (160 or more Points) [facility] 11-01-2023 [facility] Return Appointment i n: 1 week - Should you experience any significant changes in your wound(s) or have any questions regarding your home care instructions please contact the wound center at [phone] If after regular business hours, please call [...] Take antibiotic as directed Nursing Care Facility: [facility] Wound Treatment to R toes: Daily Cleanse wound with mild soap and water and pat dry. Apply Hydrafera blue Superabsorbent pad or sorbex Kerlix Apply dry dressing to cover the wound and secure with tape. OK to shower if wound dressing covered Wound Treatment to RLE: Weekly Unna Boot profore lite Apply Barrier Cream to bilateral buttocks and sacral area daily and PRN. [facility] No Panel Informationon 10-24 Julissa Taylor DO [...] provider verified the correct patient, procedure, equipment, technical support coordinator, and site/side marked as required. Debridement Details [...] Response to treatment: procedure was tolerated well [facility] 10-25-2023 [facility] Return Appointment i n: 1 week - Should you experience any significant changes in your wound(s) or have any questions regarding your home care instructions please contact the wound center at [phone] If after regular business hours, please call [...] Take antibiotic as directed Nursing Care Facility: [facility] Wound Treatment: Wound: right toes and RLE Dressing Frequency: Dressing weekly Wound Cleansing: OK to shower if wound dressing covered Apply hydrafera blue Secondary Dressing: Superabsorbent pad or sorbex Secure With: Kerlex Roll gauze 4", Silk Tape 1" Compression: Unna boot profore lite Apply Barrier Cream to bilateral buttocks and sacral area daily and PRN. [facility] 10-18-2023 [facility] Return Appointment i n: 1 week - Should you experience any significant changes in your wound(s) or have any questions regarding your home care instructions please contact the wound center at [phone] If after regular business hours, please call [...] Take antibiotic as directed Nursing Care Facility: [facility] Wound Treatment: Wound: right toes Dressing Frequency: Dressing in place every other day Wound Cleansing: Cleanse with antibacterial soap and water, pat dry Primary Dressing: Calcium Alginate 4/4 Secondary Dressing: Superabsorbent pad or sorbex Secure With: Kerlex Roll gauze 4", Silk Tape 1" Compression: Sure press or Setopress Apply Barrier Cream to bilateral buttocks and sacral area daily and PRN. Normal [facility] No Panel Informationon 10-10 Julissa Taylor DO 10/11/2023 11:30 AM Debridement Wound/Incision 08/23/23 Venous Ulcer Toe- second Right Performed by: Julissa Taylor DO Authorized by: Julissa Taylor, DO Consent Consent obtained? verbal Consent given by: patient Risks discussed? procedural risks discussed Immediately prior to the procedure a time out was called and the performing provider verified the correct patient, procedure, equipment, technical support coordinator, and site/side marked as required. Debridement Details [...] Response to treatment: procedure was tolerated well [facility] Julissa Taylor DO 10/11/2023 11:30 AM Debridement Wound/Incision 08/23/23 Venous Ulcer Toe - third Right Performed by: Julissa Taylor DO Authorized by: Julissa Taylor, DO Consent Consent obtained? verbal Consent given by: patient Risks discussed? procedural risks discussed Immediately prior to the procedure a time out was called and the performing provider verified the correct patient, procedure, equipment, technical support coordinator, and site/side marked as required. Debridement Details [...] Response to treatment: procedure was tolerated well [facility] 10-11-2023 [facility] Return Appointment i n: 1 week - Should you experience any significant changes in your wound(s) or have any questions regarding your home care instructions please contact the wound center at [phone] If after regular business hours, please call [...] help with wound healing Nursing Care Facility: [facility] Wound Treatment: Wound: right toes Dressing Frequency: Keep dressing in place all week Wound Cleansing: May shower with protection - Protect wound and dressing with water repellant cover/cast cover (e.g., large plastic bag) which can be obtained at [facility] and may take shower. Hold Collagen AG for now Secondary Dressing: Calcium Alginate 4x4 Secure With: Kerlex Roll gauze 4", Silk Tape 1" Compression: Unna boot & multilayer compression wrap - 3 layers (cover toes) Apply Barrier Cream to bilateral buttocks and sacral area daily and PRN. Normal [facility] No Panel Informationon 10-03 Julissa Taylor DO 10/04/2023 4:29 PM Debridement Wound/Incision 08/23/23 Venous Ulcer Toe- second Right Performed by: Julissa Taylor DO Authorized by: Julissa Taylor DO Consent Consent obtained? verbal Consent given by: patient Risks discussed? procedural risks discussed Immediately prior to the procedure a time out was called and the performing provider verified the correct patient, procedure, equipment, technical support coordinator, and site/side marked as required. Debridement Details [...] Response to treatment: procedure was tolerated well [facility] Julissa Taylor DO 10/04/2023 4:29 PM Debridement Wound/Incision 08/23/23 Venous Ulcer Toe - third Right Performed by: Julissa Taylor DO Authorized by: Julissa J Claudia, DO Consent Consent obtained? verbal Consent given by: patient Risks discussed? procedural risks discussed Immediately prior to the procedure a time out was called and the performing provider verified the correct patient, procedure, equipment, technical support coordinator, and site/side marked as required. Debridement Details [...] Response to treatment: procedure was tolerated well [facility] 10-04-2023 [facility] Return Appointment i n: 1 week - Should you experience any significant changes in your wound(s) or have any questions regarding your home care instructions please contact the wound center at [phone] If after regular business hours, please call [...] help with wound healing Nursing Care Facility: [facility] Wound Treatment: Wound: right toes Dressing Frequency: Keep dressing in place all week Wound Cleansing: May shower with protection - Protect wound and dressing with water repellant cover/cast cover (e.g., large plastic bag) which can be obtained at [facility] and may take shower. Primary Dressing: Collagen Ag 2x2 Secondary Dressing: Calcium Alginate 4x4 Secure With: Kerlex Roll gauze 4", Silk Tape 1" Compression: Unna boot & multilayer compression wrap - 3 layers (cover toes) Apply Barrier Cream to bilateral buttocks and sacral area daily and PRN. [facility] 09-27-2023 [facility] Return Appointment i n: 1 week - Should you experience any significant changes in your wound(s) or have any questions regarding your home care instructions please contact the wound center at [phone] If after regular business hours, please call [...] help with wound healing Nursing Care Facility: [facility] Wound Treatment: Wound: right toes Dressing Frequency: Keep dressing in place all week Wound Cleansing: May shower with protection - Protect wound and dressing with water repellant cover/cast cover (e.g., large plastic bag) which can be obtained at [facility] and may take shower. Primary Dressing: Collagen Ag 2x2 Secondary Dressing: Calcium Alginate 4x4 Secure With: Kerlex Roll gauze 4", Silk Tape 1" Compression: Unna boot & multilayer compression wrap - 3 layers (cover toes) [facility]on 09-20-2023 [facility] Return Appointment i n: 1 week - Should you experience any significant changes in your wound(s) or have any questions regarding your home care instructions please contact the wound center at [phone] If after regular business hours, please call [...] help with wound healing Nursing Care Facility: [facility] Wound Treatment: Wound: right toes Dressing Frequency: Keep dressing in place all week Wound Cleansing: May shower with protection - Protect wound and dressing with water repellant cover/cast cover (e.g., large plastic bag) which can be obtained at [facility] and may take shower. Primary Dressing: Collagen Ag 2x2 Secondary Dressing: Calcium Alginate 4x4 Secure With: Kerlex Roll gauze 4", Silk Tape 1" Compression: Unna boot & multilayer compression wrap - 3 layers (cover toes) [facility] No Panel Informationon 09-12 Julissa Taylor DO 09/13/2023 3:24 PM Debridement Wound/Incision 08/23/23 Venous Ulcer Toe- second Right Performed by: Julissa Taylor DO Authorized by: Julissa Taylor, DO Consent Consent obtained? verbal Consent given by: patient Risks discussed? procedural risks discussed Immediately prior to the procedure a time out was called and the performing provider verified the correct patient, procedure, equipment, technical support coordinator, and site/side marked as required. Debridement Details [...] Response to treatment: procedure was tolerated well [facility] Julissa Taylor DO 09/13/2023 3:24 PM Debridement Wound/Incision 08/23/23 Venous Ulcer Toe - third Right Performed by: Julissa Taylor DO Authorized by: Julissa Taylor, DO Consent Consent obtained? verbal Consent given by: patient Risks discussed? procedural risks discussed Immediately prior to the procedure a time out was called and the performing provider verified the correct patient, procedure, equipment, technical support coordinator, and site/side marked as required. Debridement Details [...] Response to treatment: procedure was tolerated well [facility]on 09-13-2023 [facility] Return Appointment i n: 1 week - Should you experience any significant changes in your wound(s) or have any questions regarding your home care instructions please contact the wound center at [phone] If after regular business hours, please call [...] help with wound healing Nursing Care Facility: [facility] Wound Treatment: Wound: right toes & lower leg Dressing Frequency: Keep dressing in place all week Wound Cleansing: May shower with protection - Protect wound and dressing with water repellant cover/cast cover (e.g., large plastic bag) which can be obtained at [facility] and may take shower. Primary Dressing: Collagen Ag 2x2 Secondary Dressing: Calcium Alginate 4x4 & hydralock Secure With: Kerlex Roll gauze 4", Silk Tape 1" Compression: Unna boot & multilayer compression wrap - 3 layers (cover toes) Normal [facility] No Panel Informationon 09-05 Julissa Taylor DO 09/06/2023 3:16 PM Debridement Wound/Incision 08/23/23 Venous Ulcer Toe- second Right Performed by: Julissa Taylor DO Authorized by: Julissa Taylor, DO Consent Consent obtained? verbal Consent given by: patient Risks discussed? procedural risks discussed Immediately prior to the procedure a time out was called and the performing provider verified the correct patient, procedure, equipment, technical support coordinator, and site/side marked as required. Debridement Details [...] Response to treatment: procedure was tolerated well [facility] Julissa Taylor DO 09/06/2023 3:16 PM Debridement Wound/Incision 08/23/23 Venous Ulcer Toe - third Right Performed by: Julissa Taylor DO Authorized by: Julissa Taylor, Consent Consent obtained? verbal Consent given by: patient Risks discussed? procedural risks discussed Immediately prior to the procedure a time out was called and the performing provider verified the correct patient, procedure, equipment, technical support coordinator, and site/side marked as required. Debridement Details [...] Response to treatment: procedure was tolerated well [employer] Julissa Taylor DO 09/06/2023 3:16 PM Debridement Wound/Incision 08/30/23 Skin Tear Calf Right Performed by: Julissa Taylor DO Authorized by: Julissa Taylor DO Consent Consent obtained? verbal Consent given by: patient Risks discussed? procedural risks discussed Immediately prior to the procedure a time out was called and the performing provider verified the correct patient, procedure, equipment, technical support coordinator, and site/side marked as required. Debridement Details [...] Response to treatment: [facility] Return Appointment i n: 1 week - Should you experience any significant changes in your wound(s) or have any questions regarding your home care instructions please contact the wound center at [phone] If after regular business hours, please call [...] help with wound healing Nursing Care Facility: [facility] Wound Treatment: Wound: right toes & lower leg Dressing Frequency: Keep dressing in place all week Wound Cleansing: May shower with protection - Protect wound and dressing with water repellant cover/cast cover (e.g., large plastic bag) which can be obtained at [facility] and may take shower. Primary Dressing: Collagen Ag 2x2 Secondary Dressing: Calcium Alginate 4x4 & hydralock Secure With: Kerlex Roll gauze 4", Silk Tape 1" Compression: Unna boot & multilayer compression wrap - 3 layers (cover toes) [facility] No Panel Informationon 08-29 Julissa Taylor DO 08/30/2023 2:41 PM Debridement Wound/Incision 08/23/23 Venous Ulcer Leg Right;Circumferential Performed by: Julissa Taylor DO Authorized by: Julissa Taylor, Consent Consent obtained? verbal Consent given by: patient Risks discussed? procedural risks discussed Immediately prior to the procedure a time out was called and the performing provider verified the correct patient, procedure, equipment, technical support coordinator, and site/side marked as required. Debridement Details [...] Response to treatment: procedure was tolerated well [facility] [employer] [facility]INSon 08-30-2023 [facility] Return Appointment i n: 1 week - Should you experience any significant changes in your wound(s) or have any questions regarding your home care instructions please contact the wound center at [phone] If after regular business hours, please call [...] help with wound healing Nursing Care Facility: [facility] Wound Treatment: Wound: right toes & lower leg Dressing Frequency: Keep dressing in place all week Wound Cleansing: May shower with protection - Protect wound and dressing with water repellant cover/cast cover (e.g., large plastic bag) which can be obtained at [facility] and may take shower. Primary Dressing: Collagen Ag 2x2 Secondary Dressing: Calcium Alginate 4x4 & hydralock Secure With: Kerlex Roll gauze 4", Silk Tape 1" Compression: Unna boot & multilayer compression wrap - 3 layers (cover toes) Normal [facility] PATINSon 08-23-2023 [facility] Return Appointment i n: 1 week - Should you experience any significant changes in your wound(s) or have any questions regarding your home care instructions please contact the wound center at [phone] If after regular business hours, please call [...] help with wound healing Nursing Care Facility: [facility] Wound Treatment: Wound: right toes & lower leg Dressing Frequency: Keep dressing in place all week Wound Cleansing: May shower with protection - Protect wound and dressing with water repellant cover/cast cover (e.g., large plastic bag) which can be obtained at [facility] and may take shower. Primary Dressing: Collagen Ag 2x2 Secondary Dressing: Calcium Alginate 4x4 & hydralock Secure With: Kerlex Roll gauze 4", Silk Tape 1" Compression: Unna boot & multilayer compression wrap - 3 layers (cover toes) Normal [facility] Progress Noteon 08-23-2023 Progress Note [facility] [address] [id number] Loc: [phone] Wound Care Visit - New Patient Progress [...] , Rfl: cholecalciferol (Vitamin D3) 1.25 MG (50915 UT) tablet, Take by mouth 1 (one) [...] sprinkle (De (more content not included)... Normal [facility] Basophil percentageOrdered B y: Demetrius Fenton on 07-16-2023 Basophil percentage 25-50 SEEN /hpf 0-5 [facility] Bilirubin Test strip Ql (U)O rdered By: Demetrius Fenton on 07-16-2023 Bilirubin Ql (U) Negative Negative [facility] Ketones Test strip Ql (U)Ord ered By: Demetrius Fenton on 07-16-2023 Ketones Ql (U) 5 mg/dl Negative [facility] Mucus LM Ql (Urine sed)Order ed By: Demetrius Fenton on 07-16-2023 Mucus Ql (Urine sed) 0 SEEN /hpf [facility] Nitrite Test strip Ql (U)Ord ered By: Demetrius Fenton on 07-16-2023 Nitrite Ql (U) Positive Negative [facility] No Panel InformationOrdered By: Demetrius Fenton on 07-16-2023 Urine RBC 0 SEEN /hpf 0-5 [facility] Protein Test strip Ql (U)Ord ered By: Demetrius Fenton on 07-16-2023 Protein Ql (U) Negative Negative [facility] Squamous epithelial cells de tection in urine sediment by light microscopyOrdered By: Demetrius Fenton on 07-16-2023 Epithelial cells.squamous LM Ql (Urine sed) 0-5 SEEN /hpf 0-5 [facility] Urine blood detectionOrdered By: Demetrius Fenton on 07-16-2023 RBC Ql (U) Negative Negative [facility] Urine clarityOrdered By: Miriam Fenton on 07-16-2023 Clarity (U) Sl. Cloudy Clear [facility] Urine color determinationOrd ered By: Demetrius Fenton on 07-16-2023 Color (U) Yellow Yellow [facility] Urine glucose detectionOrder ed By: Demetrius Fenton on 07-16-2023 Glucose Ql (U) Normal mg/dl Normal [facility] Urine leukocyte esterase det ection by dipstickOrdered By: Demetrius Fenton on 07-16-2023 Leukocyte esterase Test strip Ql (U) 500 /ul Negative [facility] Urine pHOrdered By: Demetrius astorga on 07-16-2023 pH (U) 6.0 [pH] 5.0 - 8.0 [facility] Urine sediment bacteria coun t by microscopy (number/high power field)Ordered By: Demetrius Fenton on 07-16-2023 Bacteria LM.HPF (Urine sed) [#/Area] 2 /[HPF] None Seen [facility] Urine specific gravity measu rementOrdered By: Demetrius Fenton on 07-16-2023 Specific gravity (U) [Rel density] 1.015 1.002-1.030 [facility] Urine urobilinogen measureme ntOrdered By: Demetrius Fenton on 07-16-2023 Urobilinogen Ql (U) 1 mg/dl Normal [facility] Bacteria identified Cx Nom ( Wound)Ordered By: Demetrius Fenton on 06-28-2023 Wound Culture Meth. resistant Stap h. aureus [facility] Wound Culture Enterococcus faecalis [facility] Wound Culture Acinetobacter junii [facility] Wound Culture Pseudomonas aeruginosa [facility] Gram stain for investigation of transfusion reactionOrdered By: Demetrius Fenton on 06-28-2023 Microscopic observation Gram stain Nom (Unsp spec) [facility] Bacteria identified Cx Nom ( Wound)Ordered By: Demetrius Fenton on 06-27-2023 Wound Culture Pseudomonas aeruginosa [facility] Wound Culture Enterococcus faecalis [facility] Gram stain for investigation of transfusion reactionOrdered By: Demetrius Fenton on 06-27-2023 Microscopic observation Gram stain Nom (Unsp spec) [facility] BLOOD CULTUREon 06-23-2023 Bacteria identified Cx Nom (Bld) BLOOD CULTURE Reference No growth at 5 days ORDER COMMENTS: Blood Collection Site: Left Forearm [ S = SUSCEPTIBLE R = RESISTANT I = INTERMEDIATE S-DD = Susceptible-dose dependent NS = Non-susceptible NO = No Interpretation ] Normal [facility] Comment on above: Performed By: #### L [id number] #### [employer]: SHARLA FINNEY ([id number]) [facility] ([facility]) [address] [place] [address] CT ABDOMEN PELVIS W CONTRAST on 06-23-2023 [...] arm and left has shoulder issues. Normal [facility] CT Abdomen and Pelvis W cont rast Constantine 06-23-2023 No evidence of acute pathology within the abdomen or pelvis. Interval decrease in size of peripancreatic fluid collection likely representing sequela of remote pancreatitis. Constipation. Report Dictated on Electronically Signed By: Barry Castillo MD Electronically Signed Date/Time: 06/23/2023 12:33 AM [facility] Patient Name: MOISES VERONICA : 1960 [id number] Exam Date/Time: 06/23/2023 00:08 Procedure: CT ABDOMEN [...] No evidence of acute fracture or dislocation. [facility] RADIOLOGY SYSTEM Barry Castillo MD - 06/23/2023 Patient Name: MOISES MADRID : 1960 [facility]#: [id number] Exam Date/Time: 06/23/2023 00:08 Procedure: CT ABDOMEN [...] Electronically Signed Date/Time: 06/23/2023 12:33 AM EDT [facility] [employer] CT Abdomen and Pelvis W cont rast IVOrdered By: Barry Castillo on 06-23-2023 [facility] [employer] Work Phone: ED Nursing Noteon 06-23-2023 ED Nursing Note [facility] called and given patient update and ETA for discharge/transport Danyell Mcneill RN 06/23/23126 [facility] ED Nursing Note [facility] ETA 0300 Danyell Mcneill RN 06/23/23126 [facility] No Panel InformationOrdered By: Jose Phillips on 06-23-2023 P [place] 44 degrees [employer] Work Phone: NC Interval 159 ms [facility] Work Phone: QRS [place] -36 degrees [employer] Work Phone: QRSD Interval 108 ms [facility] Work Phone: [phone] QT Interval 430 ms [employer] Work Phone: [phone] QTC Interval 476 ms [facility] Work Phone: [phone] T Wave [place] 28 degrees [employer] Work Phone: [employer] Work Phone: No Panel Informationon 06-22 Jose Phillips D O - 06/23/2023 IMPRESSION: Sinus rhythm Abnormal R-wave progression, early transition Left ventricular hypertrophy Borderline prolonged QT interval Compared to ECG 06/09/22 Tachycardia no longer present LEFT VENTRICULAR HYPERTROPHY again noted Electronically Signed On 06-23-2023 00:11:27 EDT by Jose Phillips [employer] Vital signsOrdered By: Lacie Phillips on 06-23-2023 Heart rate 73 /min bpm [employer] Work Phone: BLOOD CULTUREon 06-22-2023 Bacteria identified Cx Nom (Bld) BLOOD CULTURE Reference No growth at 5 days ORDER COMMENTS: Blood Collection Site: Left Forearm [ S = SUSCEPTIBLE R = RESISTANT I = INTERMEDIATE S-DD = Susceptible-dose dependent NS = Non-susceptible NO = No Interpretation ] Normal [facility] [employer] [facility] Comment on above: Performed By: #### L [id number] ####[employer]: SHARLA FINNEY ([id number])[facility] ([address] CBC W Auto Differential pane l (Bld)on 06-22-2023 Basophils (Bld) [#/Vol] 0.1 10*3/uL 0.0 - 0.2 10*3/uL [facility] [employer] Basophils/100 WBC (Bld) 0.5 % 0.0 - 2.0 % [facility] [employer] Eosinophils (Bld) [#/Vol] 0.3 10*3/uL 0.0 - 0.5 10*3/uL [facility] Eosinophils/100 WBC (Bld) 2.7 % 0.0 - 6.0 % [facility] Erythrocyte distribution width (RBC) [Ratio] 13.1 % 11.5 - 15.0 % [facility] Hematocrit (Bld) [Volume fraction] 44.6 % 40.0 - 52.0 % [facility] Hemoglobin (Bld) [Mass/Vol] 15.1 g/dL 13.0 - 18.0 g/dL [facility] Immature granulocytes (Bld) [#/Vol] 0.1 10*3/uL High NINF - 0.1 10*3/uL [facility] Immature granulocytes/100 WBC (Bld) 0.5 % 0.0 - 2.0 % [facility] Interpretation and review of laboratory results Abnormal [facility] Lymphocytes (Bld) [#/Vol] 2.7 10*3/uL 1.0 - 4.3 10*3/uL [facility] Lymphocytes/100 WBC (Bld) 25.5 % 15.0 - 45.0 % [facility] MCH (RBC) [Entitic mass] 30.6 pg 26.0 - 34.0 pg [facility] MCHC (RBC) [Mass/Vol] 33.9 % 30.5 - 36.0 % [facility] MCV (RBC) [Entitic vol] 90.5 fL 77.0 - 99.0 fL [facility] Monocytes (Bld) [#/Vol] 1.0 10*3/uL High 0.0 - 0.9 10*3/uL [facility] Monocytes/100 WBC (Bld) 9.5 % 5.0 - 13.0 % [facility] Neutrophils (Bld) [#/Vol] 6.5 10*3/uL 1.8 - 7.5 10*3/uL [facility] Neutrophils/100 WBC (Bld) 61.3 % 38.0 - 82.0 % [facility] Nucleated RBC/100 WBC (Bld) [Ratio] 0.0 % [facility] Platelet mean volume (Bld) [Entitic vol] 10.7 fL 9.0 - 12.7 fL [facility] Platelets (Bld) [#/Vol] 181 10*3/uL 140 - 440 10*3/uL [facility] RBC (Bld) [#/Vol] 4.93 10*6/uL 4.40 - 5.9 0 10*6/uL [facility] WBC (Bld) [#/Vol] 10.5 10*3/uL 3.6 - 10.7 10*3/uL [facility] CBC WITH AUTO DIFFERENTIALon 06-22-2023 Basophils (Bld) [#/Vol] 0.1 10*3/uL Normal 0.0-0.2 [facility] Comment on above: Performed By: #### L [id number] #### [employer]: SHARLA FINNEY ([phone]) [facility] ([facility]) [address] [place] [address] [place] Basophils/100 WBC (Bld) 0.5 % Normal 0.0-2.0 [facility] Comment on above: Performed By: #### L [id number] #### [employer]: SHARLA FINNEY ([id number]) [facility] ([facility]) [address] [place] [address] [place] Eosinophils (Bld) [#/Vol] 0.3 10*3/uL Normal 0.0-0.5 [facility] Comment on above: Performed By: #### L [id number] #### [employer]: SHARLA FINNEY ([id number]) [facility] ([facility]) [address] [place] [address] Eosinophils/100 WBC (Bld) 2.7 % Normal 0.0-6.0 [facility] Comment on above: Performed By: #### L [id number] #### [employer]: SHARLA FINNEY ([id number]) [facility] ([facility]) [address] [place] [address] Erythrocyte distribution width (RBC) [Ratio] 13.1 % Normal 11.5-15.0 [facility] Comment on above: Performed By: #### L [id number] #### [employer]: SHARLA FINNEY ([id number]) [facility] ([facility]) [address] [place] [address] Hematocrit (Bld) [Volume fraction] 44.6 % Normal 40.0-52.0 [facility] Comment on above: Performed By: #### L [id number] #### [employer]: SHARLA FINNEY ([id number]) [facility]) [address] [place] [address] Hemoglobin (Bld) [Mass/Vol] 15.1 g/dL Normal 13.0-18.0 [facility] Comment on above: Performed By: #### L [id number] #### [employer]: SHARLA FINNEY ([id number]) [facility]) [address] [place] [address] IMMATURE GRANS % 0.5 % Normal 0.0-2.0 [facility] Comment on above: Performed By: #### L [id number] #### [employer]: SHARLA FINNEY ([id number]) [facility]) [address] [place] [address] IMMATURE GRANS ABSOLUTE 0.1 10*3/uL High <0.1 [facility] Comment on above: Performed By: #### L [id number] #### [employer]: SHARLA FINNEY ([id number]) [facility] ([facility]) [address] [place] [address] Lymphocytes (Bld) [#/Vol] 2.7 10*3/uL Normal 1.0-4.3 [facility] Comment on above: Performed By: #### L [id number] #### [employer]: SHARLA FINNEY ([id number]) [facility] ([facility]) [address] [place] [address] Lymphocytes/100 WBC (Bld) 25.5 % Normal 15.0-45.0 [facility] Comment on above: Performed By: #### L [id number] #### [employer]: SHARLA FINNEY ([id number]) [facility]) [address] [place] [address] MCH (RBC) [Entitic mass] 30.6 pg Normal 26.0-34.0 [facility] Comment on above: Performed By: #### L [id number] #### [employer]: SHARLA [id number]) [facility] ([facility]) [address] [place] [address] MCHC 33.9 % Normal 30.5-36.0 [facility] Comment on above: Performed By: #### L [id number] #### [employer]: SHARLA FINNEY ([id number]) [facility] ([facility]) [address] [place] [address] MCV (RBC) [Entitic vol] 90.5 fL Normal 77.0-99.0 [facility] Comment on above: Performed By: #### L [id number] #### [employer]: SHARLA FINNEY ([id number]) [facility] ([facility]) [address] [place] [address] Monocytes (Bld) [#/Vol] 1.0 10*3/uL High 0.0-0.9 [facility] Comment on above: Performed By: #### L [id number] #### [employer]: SHARLA FINNEY ([id number]) [facility] ([facility]) [address] [place] [address] Monocytes/100 WBC (Bld) 9.5 % Normal 5.0-13.0 [facility] Comment on above: Performed By: #### L [id number] #### [employer]: SHARLA FINNEY ([id number]) [facility] ([facility]) [address] [place] [address] NEUTROPHILS ABSOLUTE 6.5 10*3/uL Normal 1.8-7.5 [facility] Comment on above: Performed By: #### L [id number] #### [employer]: SHARLA FINNEY ([id number]) [facility] ([facility]) [address] [place] [address] Neutrophils/100 WBC (Bld) 61.3 % Normal 38.0-82.0 [facility] Comment on above: Performed By: #### L [id number] #### [employer]: SHARLA FINNEY ([id number]) [facility] ([facility]) [address] [place] [address] NRBC 0.0 /100 WBCs Normal 0.0-2.0 [facility] Comment on above: Performed By: #### L [id number] #### [employer]: SHARLA FINNEY ([id number]) [facility]) [address] [place] [address] Platelet mean volume (Bld) [Entitic vol] 10.7 fL Normal 9.0-12.7 [facility] Comment on above: Performed By: #### L [id number] #### [employer]: SHARLA FINNEY ([id number]) [facility] ([facility]) [address] [place] [address] Platelets (Bld) [#/Vol] 181 10*3/uL Normal 140-440 [facility] Comment on above: Performed By: #### L [id number] #### [employer]: SHARLA FINNEY ([id number]) [facility] ([facility]) [address] [place] [address] RBC (Bld) [#/Vol] 4.93 10*6/uL Normal 4.40-5.90 [facility] Comment on above: Performed By: #### L [id number] #### [employer]: SHARLA FINNEY ([id number]) [facility] ([facility]) [address] [place] [address] WBC (Bld) [#/Vol] 10.5 10*3/uL Normal 3.6-10.7 [facility] Comment on above: Performed By: #### L [id number] #### [employer]: SHARLA FINNEY ([id number]) [facility] ([facility]) [address] [place] [address] COMPREHENSIVE METABOLIC PANE Micah 06-22-2023 Albumin [Mass/Vol] 3.9 g/dL Normal 3.5-5.0 [facility] Comment on above: Performed By: #### L [id number] #### [employer]: SHARLA FINNEY ([id number]) [facility]) [address] [place] [address] ALP [Catalytic activity/Vol] 80 U/L Normal 38-126 [facility] Comment on above: Performed By: #### L [id number] #### [employer]: SHARLA FINNEY ([id number]) [facility] [address] [place] [address] ALT [Catalytic activity/Vol] 29 U/L Normal 0-49 [facility] Comment on above: Performed By: #### L [id number] #### [employer]: SHARLA FINNEY ([id number]) [facility] [address] [place] [address] Anion gap [Moles/Vol] 5 mmol/L Normal 3-13 [facility] Comment on above: Performed By: #### L [id number] #### [employer]: SHARLA FINNEY ([id number]) [facility] [address] [place] [address] AST [Catalytic activity/Vol] 26 U/L Normal 15-46 [facility] Comment on above: Performed By: #### L [id number] #### [employer]: SHARLA FINNEY ([id number]) [facility] ([facility] [address] [place] [address] [place] Bilirubin [Mass/Vol] 0.7 mg/dL Normal 0.2-1.3 [facility] Comment on above: Performed By: #### L [id number] #### [employer]: SHARLA FINNEY ([id number]) [facility] [address] [place] [address] Calcium [Mass/Vol] 9.3 mg/dL Normal 8.4-10.4 [facility] Comment on above: Performed By: #### L [id number] #### [employer]: SHARLA FINNEY ([id number]) [facility] ([facility] [address] [place] [address] [place] Chloride [Moles/Vol] 101 mmol/L Normal 98-107 [facility] Comment on above: Performed By: #### L [id number] #### [employer]: SHARLA FINNEY ([id number]) [facility] ([facility] [address] [place] [address] [place] CO2 [Moles/Vol] 30 mmol/L Normal 22-30 [facility] Comment on above: Performed By: #### L [id number] #### [employer]: SHARLA FINNEY ([id number]) [facility]) [address] [place] [address] Creatinine [Mass/Vol] 0.89 mg/dL Normal 0.66-1.25 [facility] Comment on above: Performed By: #### L [id number] #### [employer]: SHARLA FINNEY ([id number]) [facility]) [address] [place] [address] GLOMERULAR FILTRATION RATE ML/MIN/1.73 SQ M.PREDICTED >90.0 Normal >60.0 [facility] Comment on above: Result Comment: Calc ulation based on the Chronic Kidney Disease Epidemiology Collaboration (CKD-EPI) equation refit without adjustment for race Performed By: #### L [id number] #### [employer]: SHARLA FINNEY ([id number]) [facility]) [address] [place] [address] Glucose [Mass/Vol] 188 mg/dL High 70-100 [facility] Comment on above: Performed By: #### L [id number] #### [employer]: SHARLA FINNEY ([id number]) [facility]) [address] [place] [address] Potassium [Moles/Vol] 4.4 mmol/L Normal 3.5-5.1 [facility] Comment on above: Performed By: #### L [id number] #### [employer]: SHARLA FINNEY ([id number]) [facility]) [address] [place] [address] Protein [Mass/Vol] 7.1 g/dL Normal 6.3-8.2 [facility] Comment on above: Performed By: #### L [id number] #### [employer]: SHARLA FINNEY ([id number]) [facility]) [address] [place] [address] Sodium [Moles/Vol] 136 mmol/L Normal 135-145 [facility] Comment on above: Performed By: #### L [id number] #### [employer]: SHARLA FINNEY ([id number]) [facility] ([facility]) [address] [place] [address] Urea nitrogen [Mass/Vol] 17 mg/dL Normal - [facility] Comment on above: Performed By: #### L [id number] #### [employer]: SHARLA FINNEY ([id number]) [facility] ([facility]) [address] [place] [address] CT Abdomen and Pelvis W cont rast Constantine 06-22-2023 Radiology Study observation (narrative) [facility]th CULTURE ANAEROBICon 06-22-19 24 CULTURE ANAEROBIC ANAEROBIC CULTURE Reference No growth at 5 days [ S = SUSCEPTIBLE R = RESISTANT I = INTERMEDIATE S-DD = Susceptible-dose dependent NS = Non-susceptible NO = No Interpretation ] Normal [facility] Comment on above: Performed By: #### L [id number] #### [employer]: SHARLA FINNEY ([id number]) [address] CULTURE, AEROBIC BACTERIA WI TH GRAM STAINon [...] Non-susceptible NO = No Interpretation ] Normal [facility] Comment on above: Performed By: #### L [id number] #### [employer]: SHARLA FINNEY ([id number]) [facility]) [address] [place] [address] Comprehensive metabolic 1998 panelon 06-22-2023 Albumin [Mass/Vol] 3.9 g/dL 3.5 - 5.0 g/dL [facility] ALP [Catalytic activity/Vol] 80 U/L 38 - 126 U/L [facility] ALT [Catalytic activity/Vol] 29 U/L 0 - 49 U/L [facility] Anion gap [Moles/Vol] 5 mmol/L 3 - 13 mmol/L [facility] AST [Catalytic activity/Vol] 26 U/L 15 - 46 U/L [facility] Bilirubin [Mass/Vol] 0.7 mg/dL 0.2 - 1 .3 mg/dL [facility] Calcium [Mass/Vol] 9.3 mg/dL 8.4 - 10. 4 mg/dL [facility] Chloride [Moles/Vol] 101 mmol/L 98 - 10 7 mmol/L [facility] CO2 [Moles/Vol] 30 mmol/L 22 - 30 mmol/L [facility] Creatinine [Mass/Vol] 0.89 mg/dL 0.66 - 1.25 mg/dL [facility] GFR/1.73 sq M.predicted MDRD (S/P/Bld) [Vol rate/Area] - PINF [facility] Comment on above: Calculation based on the Chronic Kidney Disease Epidemiology Collaboration (CKD-EPI) equation refit without adjustment for race Glucose [Mass/Vol] 188 mg/dL High 70 - 100 mg/dL [facility] Interpretation and review of laboratory results Abnormal [facility] Potassium [Moles/Vol] 4.4 mmol/L 3.5 - 5.1 mmol/L [facility] Protein [Mass/Vol] 7.1 g/dL 6.3 - 8.2 g/dL [facility] Sodium [Moles/Vol] 136 mmol/L 135 - 145 mmol/L [facility] Urea nitrogen [Mass/Vol] 17 mg/dL 9 - 20 mg/dL [facility] ED Provider Noteon ED Provider Note [...] who presents to the emergency department from [facility] for complaints of actual onset intermittent right [...] response syndrome) (HCC) TBI (traumatic brain injury) ([facility]) Venous insufficiency SURGICAL HISTORY Past Surgical History: [...] Historical Med cholecalciferol (Vitamin D3) 1.25 MG (68951 UT) tablet Take by mouth 1 (one) [...] not crush (more content not included)... Normal [facility] ED Provider Note Emergency Department Encounter [facility] ED Patient: Moises Madrid : 1960 Date of Evaluation: 06/22/2023 ED Supervising Physician: Fred Holloway MD I independently examined and evaluated Moises Madrid. This will serve as my Supervisory note as the physician assistant primary care of record and shared attestation. I did [...] Oral SpO2: 99% Height: 1.778 m (5' 10") The patient presented with a chief complaint [...] for clarification.) Fred Holloway MD Acute Care [facility] Fred Holloway MD 06/23/23 1812 Normal [facility] LIPASEon 06-22-2023 Lipase [Catalytic activity/Vol] 138 U/L Normal 23-300 [facility] Comment on above: Performed By: #### L [id number] #### [employer]: SHARLA FINNEY ([phone]) [facility] ([address] Laboratory - Chemistry and C hemistry - challengeon 06-22-2023 Troponin I.cardiac [Mass/Vol] ng/mL NINF - 0.034 ng/mL [facility] Lipase [Catalytic activity/Vol] 138 U/L 23 - 300 U/L [facility] Lipase [Catalytic activity/V ol]on 06-22-2023 Interpretation and review of laboratory results Normal [facility] Panel Informationon 06-21 [facility] Progress Noteon 06-22-2023 Progress Note Culture is positive but resistant to antibiotics prescribed at discharge. Positive for Pseudomonas. Antibiotic needs to be changed to ciprofloxacin 500 mg twice daily for 7 days, please contact patient and inform them of the results and send in prescription. Normal [facility] Progress Note Culture result reviewed. Awaiting sensitivity results Normal [facility] TROPONIN Ion 06-22-2023 Troponin I.cardiac [Mass/Vol] ng/mL Normal <0.034 [facility] Comment on above: Result Comment: [facility] [place] COMMENTS: Patients with high levels of Biotin oral intake (ie >5 mg/day) may have falsely decreased Troponin levels. Performed By: #### L [id number] #### [employer]: SHARLA FINNEY ([phone]) [facility] ([facility]) [address] [place] [address] Troponin I.cardiac [Mass/Vol ]on 06-22-2023 Interpretation and review of laboratory results Normal [facility] Patients with high levels of Biotin oral intake (ie >5 mg/day) may have falsely decreased Troponin levels. [facility] Basophil percentageOrdered B y: Demetrius Fenton on 06-12-2023 Chloride [Moles/Vol] 105 mmol/L 98-107 [facility] Glucose [Mass/Vol] 118 mg/dL 74-106 [facility] Comment on above: Fasting Glucose resu lt from 100 to 125 mg/dL suggests IMPAIRED HOMEOSTASIS per A.D.A. criteria. Hemoglobin (Bld) [Mass/Vol] 15.1 g/dL 13.0-16.5 [facility] Potassium [Moles/Vol] 4.3 mmol/L 3.5-5.1 [facility] Sodium [Moles/Vol] 136 mmol/L 136-145 [facility] WBC (Bld) [#/Vol] 7.2 10*3/uL 4.4-11.0 [facility] Determination of erythrocyte mean corpuscular volume (MCV)Ordered By: Demetrius Fenton on 06-12-2023 MCV (RBC) [Entitic vol] 89.3 fL 80-94 [facility] Erythrocyte distribution wid th ratioOrdered By: Demetrius Fenton on 06-12-2023 Erythrocyte distribution width (RBC) [Ratio] 13.2 % 11.6-14.6 [facility] Erythrocyte distribution wid th standard deviationOrdered By: Demetrius Fenton on 06-12-2023 Erythrocyte distribution width (RBC) [Entitic vol] 41.8 fL 35.1-43.9 [facility] Hematocrit Auto (Bld) [Volum e fraction]Ordered By: Demetrius Fenton on 06-12-2023 Hematocrit (Bld) [Volume fraction] 45.2 % 40-54 [facility] Laboratory - Chemistry and C hemistry - challengeOrdered By: Demetrius Fenton on 06-12-2023 CO2 [Moles/Vol] 27.0 mmol/L 21.0-32.0 [facility] Urea nitrogen/Creatinine [Mass ratio] 15.7 mg/mg 10-20 [facility] Laboratory - Hematology and Cell countsOrdered By: Demetrius Fenton on 06-12-2023 MCH (RBC) [Entitic mass] 29.8 pg 27.0-32.0 [facility] MCHC (RBC) [Mass/Vol] 33.4 g/dL 32-36 [facility] Platelet mean volume (Bld) [Entitic vol] 11.2 fL 6.2-12.0 [facility] Platelets (Bld) [#/Vol] 154 10*3/uL 150-450 [facility] No Panel InformationOrdered By: Demetrius Fenton on 06-12-2023 Estimated GFR (MDRD) Amer 90 mL/min >60 [facility] Comment on above: GFR Calc Estimated GFR (MDRD) Non-Af Amer 74 mL/min >60 [facility] Comment on above: Non- GFR Calc RBC Auto (Bld) [#/Vol]Ordere d By: Demetrius Fenton on 06-12-2023 RBC (Bld) [#/Vol] 5.06 10*6/uL 4.6-6.2 [facility] Serum or plasma calcium roseanne urement (mass/volume)Ordered By: Demetrius Fenton on 06-12-2023 Calcium [Mass/Vol] 9.5 mg/dL 8.5-10.1 [facility] Serum or plasma creatinine m easurement (mass/volume)Ordered By: Demetrius Fenton on 06-12-2023 Creatinine [Mass/Vol] 1.08 mg/dL 0.70-1.30 [facility] Comment on above: The validity of the calculated GFR & GFRAA in patients over 70 years has not been determined. Clinical correlation is essential. Serum or plasma urea nitroge n measurement (mass/volume)Ordered By: Demetrius Fenton on 06-12-2023 Urea nitrogen [Mass/Vol] 17 mg/dL 7-18 [facility] Thin prep Papanicolaou smear with manual screeningOrdered By: Demetrius Fenton on 06-12-2023 Thin prep Papanicolaou smear with manual screening 4 5-15 [facility] Whole blood hemoglobin A1c/t otal hemoglobin ratio (mass fraction)Ordered By: Demetrius Fenton on 06-12-2023 HbA1c (Bld) [Mass fraction] 6.5 % 3.8-5.6 [facility] Comment on above: Normal < 5.7 % Predi abetic 5.7 - 6.4 % Diabetic >or= 6.5 % Please note range changes. Basophil percentageOrdered B y: Demetrius Fenton on 03-14-2023 Bilirubin [Mass/Vol] 0.90 mg/dL 0.20-1.00 [facility] Comment on above: For patients on eltr ombopag therapy, use of Dimension [place] TBIL is not recommended. Chloride [Moles/Vol] 104 mmol/L 98-107 [facility] Glucose [Mass/Vol] 131 mg/dL 74-106 [facility] Comment on above: Fasting Glucose resu lt greater than or equal to 126 mg/dL suggests DIABETES MELLITUS per A.D.A. criteria. Potassium [Moles/Vol] 4.8 mmol/L 3.5-5.1 [facility] Protein [Mass/Vol] 6.9 g/dL 6.4-8.2 [facility] Sodium [Moles/Vol] 137 mmol/L 136-145 [facility] WBC (Bld) [#/Vol] 6.4 10*3/uL 4.4-11.0 [facility] Blood erythrocytes count (nu mber/volume)Ordered By: Demetrius Fenton on 03-14-2023 RBC (Bld) [#/Vol] 4.77 10*6/uL 4.6-6.2 [facility] Blood hemoglobin measurement (mass/volume)Ordered By: Demetrius Fenton on 03-14-2023 Hemoglobin (Bld) [Mass/Vol] 14.3 g/dL 13.0-16.5 [facility] Blood platelet mean volumeOr dered By: Demetrius Fenton on 03-14-2023 Platelet mean volume (Bld) [Entitic vol] 11.3 fL 6.2-12.0 [facility] Determination of erythrocyte mean corpuscular volume (MCV)Ordered By: Demetrius Fenton on 03-14-2023 MCV (RBC) [Entitic vol] 90.8 fL 80-94 [facility] Hematocrit Auto (Bld) [Volum e fraction]Ordered By: Demetrius Fenton on 03-14-2023 Hematocrit (Bld) [Volume fraction] 43.3 % 40-54 [facility] Laboratory - Chemistry and C hemistry - challengeOrdered By: Demetrius Fenton on 03-14-2023 ALP [Catalytic activity/Vol] 85 U/L 45-117 [facility] ALT [Catalytic activity/Vol] 36 U/L 16-61 [facility] CO2 [Moles/Vol] 29.0 mmol/L 21.0-32.0 [facility] Globulin (S) [Mass/Vol] 3.6 g/dL 2.2-4.2 [facility] Urea nitrogen/Creatinine [Mass ratio] 19.6 mg/mg 10-20 [facility] Laboratory - Hematology and Cell countsOrdered By: Demetrius Fenton on 03-14-2023 Erythrocyte distribution width (RBC) [Entitic vol] 42.7 fL 35.1-43.9 [facility] Erythrocyte distribution width (RBC) [Ratio] 13.1 % 11.6-14.6 [facility] MCH (RBC) [Entitic mass] 30.0 pg 27.0-32.0 [facility] MCHC Auto (RBC) [Mass/Vol]Or dered By: Demetrius Fenton on 03-14-2023 MCHC (RBC) [Mass/Vol] 33.0 g/dL 32-36 [facility] No Panel InformationOrdered By: Demetrius Fenton on 03-14-2023 Estimated GFR (MDRD) Amer 91 mL/min >60 [facility] Comment on above: GFR Calc Estimated GFR (MDRD) Non-Af Amer 75 mL/min >60 [facility] Comment on above: Non- GFR Calc Valproic Acid (Depakene) Level 30 ug/mL 50-100 [facility] Platelets bldOrdered By: Miriam Fenton on 03-14-2023 Platelets (Bld) [#/Vol] 158 10*3/uL 150-450 [facility] Serum or plasma albumin roseanne urement (mass/volume)Ordered By: Demetrius Fenton on 03-14-2023 Albumin [Mass/Vol] 3.3 g/dL 3.2-5.0 [facility] Serum or plasma albumin/glob ulin mass ratioOrdered By: Demetrius Fenton on 03-14-2023 Albumin/Globulin [Mass ratio] 0.9 {ratio} 0.9-2.4 [facility] Serum or plasma calcium roseanne urement (mass/volume)Ordered By: Demetrius Fenton on 03-14-2023 Calcium [Mass/Vol] 8.7 mg/dL 8.5-10.1 [facility] Serum or plasma creatinine m easurement (mass/volume)Ordered By: Demetrius Fenton on 03-14-2023 Creatinine [Mass/Vol] 1.07 mg/dL 0.70-1.30 [facility] Comment on above: The validity of the calculated GFR & GFRAA in patients over 70 years has not been determined. Clinical correlation is essential. Serum or plasma urea nitroge n measurement (mass/volume)Ordered By: Demetrius Fenton on 03-14-2023 Urea nitrogen [Mass/Vol] 21 mg/dL 7-18 [facility] Thin prep Papanicolaou smear with manual screeningOrdered By: Demetrius Fenton on 03-14-2023 Thin prep Papanicolaou smear with manual screening 23 U/L 15-37 [facility] Thin prep Papanicolaou smear with manual screening 4 5-15 [facility] Basophil percentageOrdered B y: Demetrius Fenton on 03-13-2023 Cholesterol [Mass/Vol] 139 mg/dL <200 [facility] Comment on above: <200 mg/dL Desirable 200-240 mg/dL Borderline >240 mg/dL High Risk Triglyceride [Mass/Vol] 168 mg/dL <199 [facility] Comment on above: The drugs N-Acetylcy steine and Metamizole may falsely depress this assay.Serum Triglycerides Reference Interval Normal <150 mg/dL Borderline high 150 - 199 mg/dL High 200 - 499 mg/dL Very High > or = 500 mg/dL Serum or plasma cholesterol in HDL measurement (mass/volume)Ordered By: Demetrius Fenton on 03-13-2023 Cholesterol in HDL [Mass/Vol] 49 mg/dL >40 [facility] Comment on above: The drugs N-Acetylcy steine and Metamizole may falsely depress this assay. Reference Range HDL <40 mg/dL Low HDL Cholesterol HDL >or= 60 mg/dL High HDL Cholesterol Serum or plasma cholesterol in VLDL measurement (mass/volume)Ordered By: Demetrius Fenton on 03-13-2023 Cholesterol in VLDL [Mass/Vol] 34 mg/dL 5-40 [facility] Serum or plasma low density lipoprotein (LDL) cholesterol measurement (mass/volume)Ordered By: Demetrius Fenton on 03-13-2023 Cholesterol in LDL [Mass/Vol] 56 mg/dL 0-130 [facility] Basophil percentageOrdered B y: Demetrius Fenton on 02-09-2023 Bilirubin [Mass/Vol] 0.50 mg/dL 0.20-1.00 [facility] Comment on above: For patients on eltr ombopag therapy, use of Dim[place] TBIL is not recommended. Chloride [Moles/Vol] 104 mmol/L 98-107 [facility] Glucose [Mass/Vol] 128 mg/dL 74-106 [facility] Comment on above: Fasting Glucose resu lt greater than or equal to 126 mg/dL suggests DIABETES MELLITUS per A.D.A. criteria. Potassium [Moles/Vol] 4.6 mmol/L 3.5-5.1 [facility] Protein [Mass/Vol] 7.2 g/dL 6.4-8.2 [facility] Sodium [Moles/Vol] 136 mmol/L 136-145 [facility] WBC (Bld) [#/Vol] 7.9 10*3/uL 4.4-11.0 [facility] Blood erythrocytes count (nu mber/volume)Ordered By: Demetrius Fenton on 02-09-2023 RBC (Bld) [#/Vol] 4.93 10*6/uL 4.6-6.2 [facility] Blood hemoglobin measurement (mass/volume)Ordered By: Demetrius Fenton on 02-09-2023 Hemoglobin (Bld) [Mass/Vol] 14.8 g/dL 13.0-16.5 [facility] Blood platelet mean volumeOr dered By: Demetrius Fenton on 02-09-2023 Platelet mean volume (Bld) [Entitic vol] 11.3 fL 6.2-12.0 [facility] Determination of erythrocyte mean corpuscular volume (MCV)Ordered By: Demetrius Fenton on 02-09-2023 MCV (RBC) [Entitic vol] 88.0 fL 80-94 [facility] Hematocrit Auto (Bld) [Volum e fraction]Ordered By: Demetrius Fenton on 02-09-2023 Hematocrit (Bld) [Volume fraction] 43.4 % 40-54 [facility] Laboratory - Chemistry and C hemistry - challengeOrdered By: Demetrius Fenton on 02-09-2023 ALP [Catalytic activity/Vol] 92 U/L 45-117 [facility] ALT [Catalytic activity/Vol] 31 U/L 16-61 [facility] CO2 [Moles/Vol] 26.0 mmol/L 21.0-32.0 [facility] Globulin (S) [Mass/Vol] 3.8 g/dL 2.2-4.2 [facility] Urea nitrogen/Creatinine [Mass ratio] 16.3 mg/mg 10-20 [facility] Laboratory - Hematology and Cell countsOrdered By: Demetrius Fenton on 02-09-2023 Erythrocyte distribution width (RBC) [Entitic vol] 41.9 fL 35.1-43.9 [facility] Erythrocyte distribution width (RBC) [Ratio] 13.2 % 11.6-14.6 [facility] MCH (RBC) [Entitic mass] 30.0 pg 27.0-32.0 [facility] MCHC Auto (RBC) [Mass/Vol]Or dered By: Demetrius Fenton on 02-09-2023 MCHC (RBC) [Mass/Vol] 34.1 g/dL 32-36 [facility] No Panel InformationOrdered By: Demetrius Fenton on 02-09-2023 Estimated GFR (MDRD) Amer 100 mL/min >60 [facility] Comment on above: GFR Calc Estimated GFR (MDRD) Non-Af Amer 83 mL/min >60 [facility] Comment on above: Non- GFR Calc Platelets bldOrdered By: Miriam Fenton on 02-09-2023 Platelets (Bld) [#/Vol] 193 10*3/uL 150-450 [facility] Serum or plasma albumin roseanne urement (mass/volume)Ordered By: Demetrius Fenton on 02-09-2023 Albumin [Mass/Vol] 3.4 g/dL 3.2-5.0 [facility] Serum or plasma albumin/glob ulin mass ratioOrdered By: Demetrius Fenton on 02-09-2023 Albumin/Globulin [Mass ratio] 0.9 {ratio} 0.9-2.4 [facility] Serum or plasma calcium roseanne urement (mass/volume)Ordered By: Demetrius Fenton on 02-09-2023 Calcium [Mass/Vol] 9.2 mg/dL 8.5-10.1 [facility] Serum or plasma creatinine m easurement (mass/volume)Ordered By: Demetrius Fenton on 02-09-2023 Creatinine [Mass/Vol] 0.98 mg/dL 0.70-1.30 [facility] Comment on above: The validity of the calculated GFR & GFRAA in patients over 70 years has not been determined. Clinical correlation is essential. Serum or plasma urea nitroge n measurement (mass/volume)Ordered By: Demetrius Fenton on 02-09-2023 Urea nitrogen [Mass/Vol] 16 mg/dL 7-18 [facility] Thin prep Papanicolaou smear with manual screeningOrdered By: Demetrius Fenton on 02-09-2023 Thin prep Papanicolaou smear with manual screening 20 U/L 15-37 [facility] Thin prep Papanicolaou smear with manual screening 6 5-15 [facility] Basophil percentageOrdered B y: Demetrius Fenton on 01-09-2023 Chloride [Moles/Vol] 104 mmol/L 98-107 [facility] Glucose [Mass/Vol] 169 mg/dL 74-106 [facility] Comment on above: Fasting Glucose resu lt greater than or equal to 126 mg/dL suggests DIABETES MELLITUS per A.D.A. criteria. Potassium [Moles/Vol] 4.1 mmol/L 3.5-5.1 [facility] Sodium [Moles/Vol] 139 mmol/L 136-145 [facility] WBC (Bld) [#/Vol] 6.8 10*3/uL 4.4-11.0 [facility] Blood erythrocytes count (nu mber/volume)Ordered By: Demetrius Fenton on 01-09-2023 RBC (Bld) [#/Vol] 4.61 10*6/uL 4.6-6.2 [facility] Blood hemoglobin measurement (mass/volume)Ordered By: Demetrius Fenton on 01-09-2023 Hemoglobin (Bld) [Mass/Vol] 13.6 g/dL 13.0-16.5 [facility] Blood platelet mean volumeOr dered By: Demetrius Fenton on 01-09-2023 Platelet mean volume (Bld) [Entitic vol] 11.8 fL 6.2-12.0 [facility] Determination of erythrocyte mean corpuscular volume (MCV)Ordered By: Demetrius Fenton on 01-09-2023 MCV (RBC) [Entitic vol] 90.7 fL 80-94 [facility] Hematocrit Auto (Bld) [Volum e fraction]Ordered By: Demetrius Fenton on 01-09-2023 Hematocrit (Bld) [Volume fraction] 41.8 % 40-54 [facility] Laboratory - Chemistry and C hemistry - challengeOrdered By: Demetrius Fenton on 01-09-2023 CO2 [Moles/Vol] 29.0 mmol/L 21.0-32.0 [facility] Urea nitrogen/Creatinine [Mass ratio] 19.3 mg/mg 10-20 [facility] Laboratory - Hematology and Cell countsOrdered By: Demetrius Fenton on 01-09-2023 Erythrocyte distribution width (RBC) [Entitic vol] 42.6 fL 35.1-43.9 [facility] Erythrocyte distribution width (RBC) [Ratio] 13.2 % 11.6-14.6 [facility] MCH (RBC) [Entitic mass] 29.5 pg 27.0-32.0 [facility] MCHC Auto (RBC) [Mass/Vol]Or dered By: Demetrius Fenton on 01-09-2023 MCHC (RBC) [Mass/Vol] 32.5 g/dL 32-36 [facility] No Panel InformationOrdered By: Demetrius Fenton on 01-09-2023 Estimated GFR (MDRD) Amer 89 mL/min >60 [facility] Comment on above: GFR Calc Estimated GFR (MDRD) Non-Af Amer 73 mL/min >60 [facility] Comment on above: Non- GFR Calc Prostate Specific Antigen Screen 0.59 ng/mL 0.00-4.00 [facility] Comment on above: This test was perfor med using the TPSA assay method for [employer] chemistry system. Values obtained with differentassay methods cannot be used interchangably.When changing PSA assays in the course of monitoring apatient, additional sequential testing should be carriedout to confirm baseline values. Platelets bldOrdered By: Miriam Fenton on 01-09-2023 Platelets (Bld) [#/Vol] 166 10*3/uL 150-450 [facility] Serum or plasma calcium roseanne urement (mass/volume)Ordered By: Demetrius Fenton on 01-09-2023 Calcium [Mass/Vol] 8.8 mg/dL 8.5-10.1 [facility] Serum or plasma creatinine m easurement (mass/volume)Ordered By: Demetrius Fenton on 01-09-2023 Creatinine [Mass/Vol] 1.09 mg/dL 0.70-1.30 [facility] Comment on above: The validity of the calculated GFR & GFRAA in patients over 70 years has not been determined. Clinical correlation is essential. Serum or plasma urea nitroge n measurement (mass/volume)Ordered By: Demetrius Fenton on 01-09-2023 Urea nitrogen [Mass/Vol] 21 mg/dL 7-18 [facility] Thin prep Papanicolaou smear with manual screeningOrdered By: Demetrius Fenton on 01-09-2023 Thin prep Papanicolaou smear with manual screening 6 5-15 [facility] No Panel InformationOrdered By: Gunnar Cummings on 01-02-2023 Prostate Specific Antigen Screen 0.62 ng/mL 0.00-4.00 [facility] Comment on above: This test was perfor med using the TPSA assay method for [employer] chemistry system. Values obtained with differentassay methods cannot be used interchangably.When changing PSA assays in the course of monitoring apatient, additional sequential testing should be carriedout to confirm baseline values. Valproic Acid (Depakene) Level 35 ug/mL 50-100 [facility] Bacteria identified Cx Nom ( Wound)Ordered By: Gunnar Cummings on 12-14-2022 Wound Culture Pseudomonas aeruginosa [facility] Wound Culture Proteus mirabilis [facility] Wound Culture Meth. resistant Stap h. aureus [facility] Gram stain for investigation of transfusion reactionOrdered By: Gunnar Cummings on 12-14-2022 Microscopic observation Gram stain Nom (Unsp spec) [facility] Basophil percentageOrdered B y: Demetrius Fenton on 11-28-2022 Chloride [Moles/Vol] 104 mmol/L 98-107 [facility] Glucose [Mass/Vol] 162 mg/dL 74-106 [facility] Comment on above: Fasting Glucose resu lt greater than or equal to 126 mg/dL suggests DIABETES MELLITUS per A.D.A. criteria. Potassium [Moles/Vol] 4.3 mmol/L 3.5-5.1 [facility] Sodium [Moles/Vol] 136 mmol/L 136-145 [facility] WBC (Bld) [#/Vol] 7.3 10*3/uL 4.4-11.0 [facility] Blood erythrocytes count (nu mber/volume)Ordered By: Demetrius Fenton on 11-28-2022 RBC (Bld) [#/Vol] 4.84 10*6/uL 4.6-6.2 [facility] Blood hemoglobin measurement (mass/volume)Ordered By: Demetrius Fenton on 11-28-2022 Hemoglobin (Bld) [Mass/Vol] 14.2 g/dL 13.0-16.5 [facility] Blood platelet mean volumeOr dered By: Demetrius Fenton on 11-28-2022 Platelet mean volume (Bld) [Entitic vol] 11.6 fL 6.2-12.0 [facility] Determination of erythrocyte mean corpuscular volume (MCV)Ordered By: Demetrius Fenton on 11-28-2022 MCV (RBC) [Entitic vol] 89.7 fL 80-94 [facility] Hematocrit Auto (Bld) [Volum e fraction]Ordered By: Demetrius Fenton on 11-28-2022 Hematocrit (Bld) [Volume fraction] 43.4 % 40-54 [facility] Laboratory - Chemistry and C hemistry - challengeOrdered By: Demetrius Fenton on 11-28-2022 CO2 [Moles/Vol] 25.0 mmol/L 21.0-32.0 [facility] Urea nitrogen/Creatinine [Mass ratio] 20.2 mg/mg 10-20 [facility] Laboratory - Hematology and Cell countsOrdered By: Demetrius Fenton on 11-28-2022 Erythrocyte distribution width (RBC) [Entitic vol] 43.9 fL 35.1-43.9 [facility] Erythrocyte distribution width (RBC) [Ratio] 13.4 % 11.6-14.6 [facility] MCH (RBC) [Entitic mass] 29.3 pg 27.0-32.0 [facility] MCHC Auto (RBC) [Mass/Vol]Or dered By: Demetrius Fenton on 11-28-2022 MCHC (RBC) [Mass/Vol] 32.7 g/dL 32-36 [facility] No Panel InformationOrdered By: Demetrius Fenton on 11-28-2022 Estimated GFR (MDRD) Amer 77 mL/min >60 [facility] Comment on above: GFR Calc Estimated GFR (MDRD) Non-Af Amer 63 mL/min >60 [facility] Comment on above: Non- GFR Calc Platelets bldOrdered By: Miriam Fenton on 11-28-2022 Platelets (Bld) [#/Vol] 172 10*3/uL 150-450 [facility] Serum or plasma calcium roseanne urement (mass/volume)Ordered By: Demetrius Fenton on 11-28-2022 Calcium [Mass/Vol] 9.0 mg/dL 8.5-10.1 [facility] Serum or plasma creatinine m easurement (mass/volume)Ordered By: Demetrius Fenton on 11-28-2022 Creatinine [Mass/Vol] 1.24 mg/dL 0.70-1.30 [facility] Comment on above: The validity of the calculated GFR & GFRAA in patients over 70 years has not been determined. Clinical correlation is essential. Serum or plasma urea nitroge n measurement (mass/volume)Ordered By: Demetrius Fenton on 11-28-2022 Urea nitrogen [Mass/Vol] 25 mg/dL 7-18 [facility] Thin prep Papanicolaou smear with manual screeningOrdered By: Demetrius Fenton on 11-28-2022 Thin prep Papanicolaou smear with manual screening 7 5-15 [facility] No Panel InformationOrdered By: Demetrius Fenton on 11-21-2022 Valproic Acid (Depakene) Level 35 ug/mL 50-100 [facility] Basophil percentageOrdered B y: Demetrius Fenton on 10-24-2022 Chloride [Moles/Vol] 104 mmol/L 98-107 [facility] Glucose [Mass/Vol] 101 mg/dL 74-106 [facility] Comment on above: Fasting Glucose resu lt from 100 to 125 mg/dL suggests IMPAIRED HOMEOSTASIS per A.D.A. criteria. Potassium [Moles/Vol] 4.6 mmol/L 3.5-5.1 [facility] Sodium [Moles/Vol] 137 mmol/L 136-145 [facility] - Chemistry and C hemistry - challengeOrdered By: Demetrius Fenton on 10-24-2022 CO2 [Moles/Vol] 29.0 mmol/L 21.0-32.0 [facility] Urea nitrogen/Creatinine [Mass ratio] 17.4 mg/mg 10- [facility] No Panel InformationOrdered By: Demetrius Fenton on 10-24-2022 Estimated GFR (MDRD) Amer 79 mL/min >60 [facility] Comment on above: GFR Calc Estimated GFR (MDRD) Non-Af Amer 65 mL/min >60 [facility] Comment on above: Non- GFR Calc Serum or plasma calcium roseanne urement (mass/volume)Ordered By: Demetrius Fenton on 10-24-2022 Calcium [Mass/Vol] 9.0 mg/dL 8.5-10.1 [facility] Serum or plasma creatinine m easurement (mass/volume)Ordered By: Demetrius Fenton on 10-24-2022 Creatinine [Mass/Vol] 1.21 mg/dL 0.70-1.30 [facility] Comment on above: The validity of the calculated GFR & GFRAA in patients over 70 years has not been determined. Clinical correlation is essential. Serum or plasma urea nitroge n measurement (mass/volume)Ordered By: Demetrius Fenton on 10-24-2022 Urea nitrogen [Mass/Vol] 21 mg/dL 7-18 [facility] Thin prep Papanicolaou smear with manual screeningOrdered By: Demetrius Fenton on 10-24-2022 Thin prep Papanicolaou smear with manual screening 4 5-15 [facility] Basophil percentageOrdered B y: Demetrius Fenton on 09-12-2022 Cholesterol [Mass/Vol] 107 mg/dL <200 [facility] Comment on above: <200 mg/dL Desirable 200-240 mg/dL Borderline >240 mg/dL High Risk Triglyceride [Mass/Vol] 243 mg/dL <199 [facility] Comment on above: The drugs N-Acetylcy steine and Metamizole may falsely depress this assay.Serum Triglycerides Reference Interval Normal <150 mg/dL Borderline high 150 - 199 mg/dL High 200 - 499 mg/dL Very High > or = 500 mg/dL WBC (Bld) [#/Vol] 9.1 10*3/uL 4.4-11.0 [facility] Blood erythrocytes count (nu mber/volume)Ordered By: Demetrius eFnton on 09-12-2022 RBC (Bld) [#/Vol] 4.59 10*6/uL 4.6-6.2 [facility] Blood hemoglobin measurement (mass/volume)Ordered By: Demetrius Fenton on 09-12-2022 Hemoglobin (Bld) [Mass/Vol] 13.7 g/dL 13.0-16.5 [facility] Blood platelet mean volumeOr dered By: Demetrius Fenton on 09-12-2022 Platelet mean volume (Bld) [Entitic vol] 10.6 fL 6.2-12.0 [facility] Determination of erythrocyte mean corpuscular volume (MCV)Ordered By: Demetrius Fenton on 09-12-2022 MCV (RBC) [Entitic vol] 88.9 fL 80-94 [facility] Hematocrit Auto (Bld) [Volum e fraction]Ordered By: Demetrius Fenton on 09-12-2022 Hematocrit (Bld) [Volume fraction] 40.8 % 40-54 [facility] Laboratory - Hematology and Cell countsOrdered By: Demetrius Fenton on 09-12-2022 Erythrocyte distribution width (RBC) [Entitic vol] 43.8 fL 35.1-43.9 [facility] Erythrocyte distribution width (RBC) [Ratio] 14.0 % 11.6-14.6 [facility] MCH (RBC) [Entitic mass] 29.8 pg 27.0-32.0 [facility] MCHC Auto (RBC) [Mass/Vol]Or dered By: Demetrius Fenton on 09-12-2022 MCHC (RBC) [Mass/Vol] 33.6 g/dL 32-36 [facility] No Panel InformationOrdered By: Demetrius Fenton on 09-12-2022 Valproic Acid (Depakene) Level 29 ug/mL 50-100 [facility] Platelets bldOrdered By: Miriam Fenton on 09-12-2022 Platelets (Bld) [#/Vol] 188 10*3/uL 150-450 [facility] Serum or plasma cholesterol in HDL measurement (mass/volume)Ordered By: Demetrius Fenton on 09-12-2022 Cholesterol in HDL [Mass/Vol] 41 mg/dL >40 [facility] Comment on above: The drugs N-Acetylcy steine and Metamizole may falsely depress this assay. Reference Range HDL <40 mg/dL Low HDL Cholesterol HDL >or= 60 mg/dL High HDL Cholesterol Serum or plasma cholesterol in VLDL measurement (mass/volume)Ordered By: Demetrius Fenton on 09-12-2022 Cholesterol in VLDL [Mass/Vol] 49 mg/dL 5-40 [facility] Serum or plasma low density lipoprotein (LDL) cholesterol measurement (mass/volume)Ordered By: Demetrius Fenton on 09-12-2022 Cholesterol in LDL [Mass/Vol] 17 mg/dL 0-130 [facility] Bacteria identified Cx Nom ( Wound)Ordered By: Demetrius Fenton on 09-10-2022 Wound Culture Pseudomonas aeruginosa [facility] Gram stain for investigation of transfusion reactionOrdered By: Demetrius Fenton on 09-08-2022 Microscopic observation Gram stain Nom (Unsp spec) [facility] Bacteria identified Cx Nom ( Wound)Ordered By: Demetrius Fenton on 09-07-2022 Wound Culture Pseudomonas aeruginosa [facility] Gram stain for investigation of transfusion reactionOrdered By: Demetrius Fenton on 09-07-2022 Microscopic observation Gram stain Nom (Unsp spec) [facility] No Panel InformationOrdered By: Demetrius Fenton on 08-22-2022 Valproic Acid (Depakene) Level 40 ug/mL 50-100 [facility] Basophil percentageOrdered B y: Demetrius Fenton on 08-01-2022 Amylase [Catalytic activity/Vol] 50 U/L 25-115 [facility] Bilirubin [Mass/Vol] 0.50 mg/dL 0.20-1.00 [facility] Comment on above: For patients on eltr ombopag therapy, use of Dimension [place] TBIL is not recommended. Protein [Mass/Vol] 6.4 g/dL 6.4-8.2 [facility] Direct bilirubinOrdered By: Demetrius Fenton on 08-01-2022 Bilirubin.direct [Mass/Vol] 0.14 mg/dL 0.00-0.30 [facility] Laboratory - Chemistry and C hemistry - challengeOrdered By: Demetrius Fenton on 08-01-2022 ALP [Catalytic activity/Vol] 62 U/L 45-117 [facility] ALT [Catalytic activity/Vol] 26 U/L 16-61 [facility] Globulin (S) [Mass/Vol] 3.3 g/dL 2.2-4.2 [facility] Lipase [Catalytic activity/Vol] 45 U/L 13-75 [facility] Comment on above: Please note:LIPASE r evised reference range effective 22. New Lipase methodology. Expected to produce lower values than the previous assay method. NEW Reference Range: 13 - 75 U/L Serum or plasma albumin roseanne urement (mass/volume)Ordered By: Demetrius Fenton on 08-01-2022 Albumin [Mass/Vol] 3.1 g/dL 3.2-5.0 [facility] Thin prep Papanicolaou smear with manual screeningOrdered By: Demetrius Fenton on 08-01-2022 Thin prep Papanicolaou smear with manual screening 18 U/L 15-37 [facility] Basophil percentageOrdered B y: Demetrius Fenton on 07-28-2022 Chloride [Moles/Vol] 107 mmol/L 98-107 [facility] Glucose [Mass/Vol] 95 mg/dL 74-106 [facility] Potassium [Moles/Vol] 4.4 mmol/L 3.5-5.1 [facility] Comment on above: Slight Hemolysis, Re sult may be falsely increased. Sodium [Moles/Vol] 136 mmol/L 136-145 [facility] WBC (Bld) [#/Vol] 7.2 10*3/uL 4.4-11.0 [facility] Blood erythrocytes count (nu mber/volume)Ordered By: Demetrius Fenton on 07-28-2022 RBC (Bld) [#/Vol] 3.82 10*6/uL 4.6-6.2 [facility] Blood hemoglobin measurement (mass/volume)Ordered By: Demetrius Fenton on 07-28-2022 Hemoglobin (Bld) [Mass/Vol] 11.6 g/dL 13.0-16.5 [facility] Blood platelet mean volumeOr dered By: Demetrius Fenton on 07-28-2022 Platelet mean volume (Bld) [Entitic vol] 11.1 fL 6.2-12.0 [facility] Determination of erythrocyte mean corpuscular volume (MCV)Ordered By: Demetrius Fenton on 07-28-2022 MCV (RBC) [Entitic vol] 93.5 fL 80-94 [facility] Hematocrit Auto (Bld) [Volum e fraction]Ordered By: Demetrius Fenton on 07-28-2022 Hematocrit (Bld) [Volume fraction] 35.7 % 40-54 [facility] Laboratory - Chemistry and C hemistry - challengeOrdered By: Demetrius Fenton on 07-28-2022 CO2 [Moles/Vol] 25.0 mmol/L 21.0-32.0 [facility] Urea nitrogen/Creatinine [Mass ratio] 13.1 mg/mg 01-27 [facility] Laboratory - Hematology and Cell countsOrdered By: Demetrius Fenton on 07-28-2022 Erythrocyte distribution width (RBC) [Entitic vol] 47.2 fL 35.1-43.9 [facility] Erythrocyte distribution width (RBC) [Ratio] 14.1 % 11.6-14.6 [facility] MCH (RBC) [Entitic mass] 30.4 pg 27.0-32.0 [facility] MCHC Auto (RBC) [Mass/Vol]Or dered By: Demetrius Fenton on 07-28-2022 MCHC (RBC) [Mass/Vol] 32.5 g/dL 32-36 [facility] No Panel InformationOrdered By: Demetruis Fenton on 07-28-2022 Estimated GFR (MDRD) Amer 99 mL/min >60 [facility] Comment on above: GFR Calc Estimated GFR (MDRD) Non-Af Amer 82 mL/min >60 [facility] Comment on above: Non- GFR Calc Platelets bldOrdered By: Miriam Fenton on 07-28-2022 Platelets (Bld) [#/Vol] 204 10*3/uL 150-450 [facility] Serum or plasma calcium roseanne urement (mass/volume)Ordered By: Demetrius Fenton on 07-28-2022 Calcium [Mass/Vol] 8.9 mg/dL 8.5-10.1 [facility] Serum or plasma creatinine m easurement (mass/volume)Ordered By: Demetrius Fenton on 07-28-2022 Creatinine [Mass/Vol] 0.99 mg/dL 0.70-1.30 [facility] Comment on above: The validity of the calculated GFR & GFRAA in patients over 70 years has not been determined. Clinical correlation is essential. Serum or plasma urea nitroge n measurement (mass/volume)Ordered By: Demetrius Fenton on 07-28-2022 Urea nitrogen [Mass/Vol] 13 mg/dL 7-18 [facility] Thin prep Papanicolaou smear with manual screeningOrdered By: Demetrius Fenton on 07-28-2022 Thin prep Papanicolaou smear with manual screening 4 5-15 [facility] Culture, urineOrdered By: Travis Finch on 07-21-2022 Bacteria identified Cx Nom (U) Escherichia coli [facility] Bilirubin Test strip Ql (U)O rdered By: Demetrius Fenton on 07-18-2022 Bilirubin Ql (U) Negative Negative [facility] Culture, urineOrdered By: Travis Finch on 07-18-2022 Bacteria identified Cx Nom (U) Escherichia coli [facility] Ketones Test strip Ql (U)Ord ered By: Demetrius Fenton on 07-18-2022 Ketones Ql (U) 15 mg/dl Negative [facility] Nitrite Test strip Ql (U)Ord ered By: Demetrius Fenton on 07-18-2022 Nitrite Ql (U) Positive Negative [facility] No Panel InformationOrdered By: Demetrius Fenton on 07-18-2022 Valproic Acid (Depakene) Level 42 ug/mL 50-100 [facility] Protein Test strip Ql (U)Ord ered By: Demetrius Fenton on 07-18-2022 Protein Ql (U) 100 mg/dl Negative [facility] Urine blood detectionOrdered By: Demetrius Fenton on 07-18-2022 RBC Ql (U) 250 /ul Negative [facility] Urine clarityOrdered By: Pet tanisha Fenton on 07-18-2022 Clarity (U) Turbid Clear [facility] Urine color determinationOrd ered By: Demetrius Fenton on 07-18-2022 Color (U) Brown Yellow [facility] Urine glucose detectionOrder ed By: Demetrius Fenton on 07-18-2022 Glucose Ql (U) Normal mg/dl Normal [facility] Urine leukocyte esterase det ection by dipstickOrdered By: Demetrius Fenton on 07-18-2022 Leukocyte esterase Test strip Ql (U) 500 /ul Negative [facility] Urine pHOrdered By: Demetrius astorga on 07-18-2022 pH (U) 5.0 [pH] 5.0 - 8.0 [facility] Urine specific gravity measu rementOrdered By: Demetrius Fenton on 07-18-2022 Specific gravity (U) [Rel density] 1.020 1.002-1.030 [facility] Urobilinogen Auto test strip Ql (U)Ordered By: Demetrius Fenton on 07-18-2022 Urobilinogen Ql (U) 4 mg/dl Normal [facility] Basophil percentageOrdered B y: Gunnar Cummings on 06-30-2022 Amylase [Catalytic activity/Vol] 62 U/L 25-115 [facility] Bilirubin [Mass/Vol] 0.60 mg/dL 0.20-1.00 [facility] Comment on above: For patients on eltr ombopag therapy, use of Dimension [place] TBIL is not recommended. Chloride [Moles/Vol] 103 mmol/L 98-107 [facility] Glucose [Mass/Vol] 120 mg/dL 74-106 [facility] Comment on above: Fasting Glucose resu lt from 100 to 125 mg/dL suggests IMPAIRED HOMEOSTASIS per A.D.A. criteria. Potassium [Moles/Vol] 4.5 mmol/L 3.5-5.1 [facility] Protein [Mass/Vol] 6.2 g/dL 6.4-8.2 [facility] Sodium [Moles/Vol] 139 mmol/L 136-145 [facility] WBC (Bld) [#/Vol] 6.2 10*3/uL 4.4-11.0 [facility] Blood erythrocytes count (nu mber/volume)Ordered By: Gunnar Cummings on 06-30-2022 RBC (Bld) [#/Vol] 3.78 10*6/uL 4.6-6.2 [facility] Blood hemoglobin measurement (mass/volume)Ordered By: Gunnar Cummings on 06-30-2022 Hemoglobin (Bld) [Mass/Vol] 11.7 g/dL 13.0-16.5 [facility] Blood platelet mean volumeOr dered By: Gunnar Cummings on 06-30-2022 Platelet mean volume (Bld) [Entitic vol] 10.6 fL 6.2-12.0 [facility] Determination of erythrocyte mean corpuscular volume (MCV)Ordered By: Gunnar Cummings on 06-30-2022 MCV (RBC) [Entitic vol] 94.2 fL 80-94 [facility] Hematocrit Auto (Bld) [Volum e fraction]Ordered By: Gunnar Cummings on 06-30-2022 Hematocrit (Bld) [Volume fraction] 35.6 % 40-54 [facility] Laboratory - Chemistry and C hemistry - challengeOrdered By: Gunnar Cummings on 06-30-2022 ALP [Catalytic activity/Vol] 77 U/L 45-117 [facility] ALT [Catalytic activity/Vol] 24 U/L 16-61 [facility] CO2 [Moles/Vol] 28.0 mmol/L 21.0-32.0 [facility] Globulin (S) [Mass/Vol] 3.5 g/dL 2.2-4.2 [facility] Lipase [Catalytic activity/Vol] 777 U/L 73-393 [facility] Urea nitrogen/Creatinine [Mass ratio] 15.4 mg/mg 10-20 [facility] Laboratory - Hematology and Cell countsOrdered By: Gunnar Cummings on 06-30-2022 Erythrocyte distribution width (RBC) [Entitic vol] 46.9 fL 35.1-43.9 [facility] Erythrocyte distribution width (RBC) [Ratio] 14.0 % 11.6-14.6 [facility] MCH (RBC) [Entitic mass] 31.0 pg 27.0-32.0 [facility] MCHC Auto (RBC) [Mass/Vol]Or dered By: Gunnar Cummings on 06-30-2022 MCHC (RBC) [Mass/Vol] 32.9 g/dL 32-36 [facility] No Panel InformationOrdered By: Gunnar Cummings on 06-30-2022 Estimated GFR (MDRD) Amer 110 mL/min >60 [facility] Comment on above: GFR Calc Estimated GFR (MDRD) Non-Af Amer 91 mL/min >60 [facility] Comment on above: Non- GFR Calc Platelets bldOrdered By: Ar Cummings on 06-30-2022 Platelets (Bld) [#/Vol] 277 10*3/uL 150-450 [facility] Serum or plasma albumin roseanne urement (mass/volume)Ordered By: Gunnar Cummings on 06-30-2022 Albumin [Mass/Vol] 2.7 g/dL 3.2-5.0 [facility] Serum or plasma albumin/glob ulin mass ratioOrdered By: Gunnar Cummings on 06-30-2022 Albumin/Globulin [Mass ratio] 0.8 {ratio} 0.9-2.4 [facility] Serum or plasma calcium roseanne urement (mass/volume)Ordered By: Gunnar Cummings on 06-30-2022 Calcium [Mass/Vol] 8.9 mg/dL 8.5-10.1 [facility] Serum or plasma creatinine m easurement (mass/volume)Ordered By: Gunnar Cummings on 06-30-2022 Creatinine [Mass/Vol] 0.91 mg/dL 0.70-1.30 [facility] Comment on above: The validity of the calculated GFR & GFRAA in patients over 70 years has not been determined. Clinical correlation is essential. Serum or plasma urea nitroge n measurement (mass/volume)Ordered By: Gunnar Cummings on 06-30-2022 Urea nitrogen [Mass/Vol] 14 mg/dL 7-18 [facility] Thin prep Papanicolaou smear with manual screeningOrdered By: Gunnar Cummings on 06-30-2022 Thin prep Papanicolaou smear with manual screening 15 U/L 15-37 [facility] Thin prep Papanicolaou smear with manual screening 8 5-15 [facility] Cobalamin (Vitamin B12) [Mas s/Vol]on 06-23-2022 Interpretation and review of laboratory results Normal [facility] Comprehensive metabolic 1998 panelon 06-23-2022 Albumin [Mass/Vol] 3.1 g/dL Low 3.5 - 5.0 g/dL [facility] ALP [Catalytic activity/Vol] 80 U/L 38 - 126 U/L [facility] ALT [Catalytic activity/Vol] 29 U/L 0 - 49 U/L [facility] Anion gap [Moles/Vol] 0 mmol/L Low 3 - 13 mmol/L [facility] AST [Catalytic activity/Vol] 37 U/L 15 - 46 U/L [facility] Bilirubin [Mass/Vol] 0.4 mg/dL 0.2 - 1 .3 mg/dL [facility] Calcium [Mass/Vol] 8.3 mg/dL Low 8.4 - 10. 4 mg/dL [facility] Chloride [Moles/Vol] 100 mmol/L 98 - 10 7 mmol/L [facility] CO2 [Moles/Vol] 32 mmol/L High 22 - 30 mmol/L [facility] Creatinine [Mass/Vol] 0.70 mg/dL 0.66 - 1.25 mg/dL [facility] GFR/1.73 sq M.predicted MDRD (S/P/Bld) [Vol rate/Area] - PINF [facility] Glucose [Mass/Vol] 169 mg/dL High 70 - 100 mg/dL [facility] Interpretation and review of laboratory results Abnormal [facility] Potassium [Moles/Vol] 3.6 mmol/L 3.5 - 5.1 mmol/L [facility] Protein [Mass/Vol] 6.1 g/dL Low 6.3 - 8.2 g/dL [facility] Sodium [Moles/Vol] 131 mmol/L Low 135 - 145 mmol/L [facility] Urea nitrogen [Mass/Vol] 17 mg/dL 9 - 20 mg/dL [facility] Ferritin [Mass/Vol]on 2022 Interpretation and review of laboratory results Normal [facility] Iron and Iron binding capaci ty panelon 06-23-2022 Interpretation and review of laboratory results Normal [facility] Iron [Mass/Vol] 83 ug/dL 49 - 181 ug/dL [facility] Iron binding capacity [Mass/Vol] 285 ug/dL 261 - 497 ug/dL [facility] Iron saturation [Mass fraction] 29 % 15 - 50 % [facility] Laboratory - Chemistry and C hemistry - challengeon 06-23-2022 Cobalamin (Vitamin B12) [Mass/Vol] 734 pg/mL 239 - 931 pg/mL [facility] Ferritin [Mass/Vol] 420 ng/mL 18 - 464 ng/mL [facility] Transferrin [Mass/Vol] 232 mg/dL 206 - 381 mg/dL [facility] Glucose [Mass/Vol] 200 mg/dL High 70 - 100 mg/dL [facility] No Panel Informationon 06-23 Interpretation and review of laboratory results Normal [facility] Interpretation and review of laboratory results Abnormal [facility] CBC W Auto Differential pane l (Bld)on 06-22-2022 Erythrocyte distribution width (RBC) [Ratio] 13.9 % 11.5 - 14.5 % [facility] Hematocrit (Bld) [Volume fraction] 34.7 % Low 40.0 - 52.0 % [facility] Hemoglobin (Bld) [Mass/Vol] 12.1 g/dL Low 13.0 - 18.0 g/dL [facility] MCH (RBC) [Entitic mass] 31.1 pg 26.0 - 34.0 pg [facility] MCHC (RBC) [Mass/Vol] 34.8 % 32.0 - 36.0 % [facility] MCV (RBC) [Entitic vol] 89.3 fL 80.0 - 98.0 fL [facility] Nucleated RBC/100 WBC (Bld) [Ratio] 0.2 % [facility] Platelet mean volume (Bld) [Entitic vol] 7.8 fL 7.4 - 12.4 fL [facility] Platelets (Bld) [#/Vol] 377 10*3/uL 140 - 440 10*3/uL [facility] RBC (Bld) [#/Vol] 3.89 10*6/uL Low 4.40 - 5.9 0 10*6/uL [facility] WBC (Bld) [#/Vol] 13.0 10*3/uL High 3.6 - 10.7 10*3/uL [facility] Comprehensive metabolic 1998 panelon 06-22-2022 Albumin [Mass/Vol] 3.0 g/dL Low 3.5 - 5.0 g/dL [facility] ALP [Catalytic activity/Vol] 72 U/L 38 - 126 U/L [facility] ALT [Catalytic activity/Vol] 27 U/L 0 - 49 U/L [facility] Anion gap [Moles/Vol] 1 mmol/L Low 3 - 13 mmol/L [facility] AST [Catalytic activity/Vol] 58 U/L High 15 - 46 U/L [facility] Bilirubin [Mass/Vol] 0.6 mg/dL 0.2 - 1 .3 mg/dL [facility] Calcium [Mass/Vol] 8.0 mg/dL Low 8.4 - 10. 4 mg/dL [facility] Chloride [Moles/Vol] 96 mmol/L Low 98 - 10 7 mmol/L [facility] CO2 [Moles/Vol] 32 mmol/L High 22 - 30 mmol/L [facility] Creatinine [Mass/Vol] 0.66 mg/dL 0.66 - 1.25 mg/dL [facility] GFR/1.73 sq M.predicted MDRD (S/P/Bld) [Vol rate/Area] - PINF [facility] Glucose [Mass/Vol] 204 mg/dL High 70 - 100 mg/dL [facility] Potassium [Moles/Vol] 3.8 mmol/L 3.5 - 5.1 mmol/L [facility] Protein [Mass/Vol] 6.1 g/dL Low 6.3 - 8.2 g/dL [facility] Sodium [Moles/Vol] 129 mmol/L Low 135 - 145 mmol/L [facility] Urea nitrogen [Mass/Vol] 17 mg/dL 9 - 20 mg/dL [facility] HbA1c (Bld) [Mass fraction]o n 06-22-2022 Glucose [Mass/Vol] 151 mg/dL [facility] HbA1c (Bld) [Mass/Vol] 6.9 % High NINF - 5.7 % [facility] Interpretation and review of laboratory results Abnormal [facility] Laboratory - Chemistry and C hemistry - challengeon 06-22-2022 Lipase [Catalytic activity/Vol] 1218 U/L High 23 - 300 U/L [facility] Magnesium [Mass/Vol] 2.1 mg/dL 1.6 - 2 .3 mg/dL [facility] Magnesium [Mass/Vol]on 06-22 Interpretation and review of laboratory results Normal [facility] Manual differential performe d Ql (Bld)on 06-22-2022 Band form neutrophils (Bld) [#/Vol] 0.3 10*3/uL High NINF - 0.0 10*3/uL [facility] Band form neutrophils/100 WBC (Bld) 2 % High NINF - 0 % [facility] Bands Manual 2 [facility] Cells Counted Total (Bld) [#] 100 {cells} [facility] Eosinophils (Bld) [#/Vol] 0.8 10*3/uL High 0.0 - 0.5 10*3/uL [facility] Eosinophils Manual 6 High 0 - 1 [facility] Eosinophils/100 WBC (Bld) 6 % 1 - 6 % [facility] Leukocyte morphology finding Nom (Bld) Normal [facility] Lymphocytes (Bld) [#/Vol] 2.3 10*3/uL 1.0 - 4.3 10*3/uL [facility] Lymphocytes Manual 18 [facility] Lymphocytes/100 WBC (Bld) 18 % Low 20 - 40 % [facility] Metamyelocytes (Bld) [#/Vol] 0.1 10*3/uL High NINF - 0.0 10*3/uL [facility] Metamyelocytes Manual 1 [facility] Metamyelocytes/100 WBC (Bld) 1 % High NINF - 0 % [facility] Monocytes (Bld) [#/Vol] 0.4 10*3/uL 0.0 - 0.8 10*3/uL [facility] Monocytes Manual 3 [facility] alth Monocytes/100 WBC (Bld) 3 % 2 - 10 % [facility] Myelocytes (Bld) [#/Vol] 0.7 10*3/uL High NINF - 0.0 10*3/uL [facility] Myelocytes Manual 5 [facility] Myelocytes/100 WBC (Bld) 5 % High NINF - 0 % [facility] Neutrophils (Bld) [#/Vol] 8.7 10*3/uL High 1.8 - 7.0 10*3/uL [facility] Neutrophils Manual 65 [facility] Platelet morphology finding Nom (Bld) Normal [facility] Polychromasia LM Ql (Bld) Slight Abnormal (none) [facility] Segmented neutrophils/100 WBC (Bld) 65 % 40 - 80 % [facility] WBC corrected for nucl RBC (Bld) [#/Vol] 13.00 10*3/uL High 3.60 - 10.70 10*3/uL [facility] No Panel Informationon 06-22 Interpretation and review of laboratory results Abnormal [facility] Interpretation and review of laboratory results Abnormal [facility] Bacteria identified Cx Nom ( Bld)on 06-21-2022 Interpretation and review of laboratory results Normal [facility] CBC W Auto Differential pane l (Bld)on 06-21-2022 Erythrocyte distribution width (RBC) [Ratio] 13.8 % 11.5 - 14.5 % [facility] Hematocrit (Bld) [Volume fraction] 36.1 % Low 40.0 - 52.0 % [facility] Hemoglobin (Bld) [Mass/Vol] 12.4 g/dL Low 13.0 - 18.0 g/dL [facility] MCH (RBC) [Entitic mass] 30.9 pg 26.0 - 34.0 pg [facility] MCHC (RBC) [Mass/Vol] 34.4 % 32.0 - 36.0 % [facility] MCV (RBC) [Entitic vol] 89.8 fL 80.0 - 98.0 fL [facility] Nucleated RBC/100 WBC (Bld) [Ratio] 0.1 % [facility] Platelet mean volume (Bld) [Entitic vol] 8.2 fL 7.4 - 12.4 fL [facility] Platelets (Bld) [#/Vol] 401 10*3/uL 140 - 440 10*3/uL [facility] RBC (Bld) [#/Vol] 4.02 10*6/uL Low 4.40 - 5.9 0 10*6/uL [facility] WBC (Bld) [#/Vol] 16.2 10*3/uL High 3.6 - 10.7 10*3/uL [facility] Comprehensive metabolic 1998 panelon 06-21-2022 Albumin [Mass/Vol] 3.2 g/dL Low 3.5 - 5.0 g/dL [facility] ALP [Catalytic activity/Vol] 78 U/L 38 - 126 U/L [facility] ALT [Catalytic activity/Vol] 30 U/L 0 - 49 U/L [facility] Anion gap [Moles/Vol] 0 mmol/L Low 3 - 13 mmol/L [facility] AST [Catalytic activity/Vol] 56 U/L High 15 - 46 U/L [facility] Bilirubin [Mass/Vol] 0.7 mg/dL 0.2 - 1 .3 mg/dL [facility] Calcium [Mass/Vol] 8.0 mg/dL Low 8.4 - 10. 4 mg/dL [facility] Chloride [Moles/Vol] 93 mmol/L Low 98 - 10 7 mmol/L [facility] CO2 [Moles/Vol] 33 mmol/L High 22 - 30 mmol/L [facility] Creatinine [Mass/Vol] 0.74 mg/dL 0.66 - 1.25 mg/dL [facility] GFR/1.73 sq M.predicted MDRD (S/P/Bld) [Vol rate/Area] - PINF [facility] Glucose [Mass/Vol] 252 mg/dL High 70 - 100 mg/dL [facility] Potassium [Moles/Vol] 4.0 mmol/L 3.5 - 5.1 mmol/L [facility] Protein [Mass/Vol] 6.5 g/dL 6.3 - 8.2 g/dL [facility] Sodium [Moles/Vol] 126 mmol/L Low 135 - 145 mmol/L [facility] Urea nitrogen [Mass/Vol] 19 mg/dL 9 - 20 mg/dL [facility] Laboratory - Chemistry and C hemistry - challengeon 06-21-2022 Lipase [Catalytic activity/Vol] 1352 U/L High 23 - 300 U/L [facility] Magnesium [Mass/Vol] 2.0 mg/dL 1.6 - 2 .3 mg/dL [facility] Laboratory - Microbiology an d Antimicrobial susceptibilityon 06-21-2022 Bacteria identified Cx Nom (Bld) No growth at 5 days [facility] Magnesium [Mass/Vol]on 06-21 Interpretation and review of laboratory results Normal [facility] Manual differential performe d Ql (Bld)on 06-21-2022 Cells Counted Total (Bld) [#] 100 {cells} [facility] Eosinophils (Bld) [#/Vol] 0.3 10*3/uL 0.0 - 0.5 10*3/uL [facility] Eosinophils Manual 2 High 0 - 1 [facility] Eosinophils/100 WBC (Bld) 2 % 1 - 6 % [facility] Lymphocytes (Bld) [#/Vol] 3.2 10*3/uL 1.0 - 4.3 10*3/uL [facility] Lymphocytes Manual 20 [facility] Lymphocytes/100 WBC (Bld) 20 % 20 - 40 % [facility] Metamyelocytes (Bld) [#/Vol] 0.5 10*3/uL High NINF - 0.0 10*3/uL [facility] Metamyelocytes Manual 3 [facility] Metamyelocytes/100 WBC (Bld) 3 % High NINF - 0 % [facility] Monocytes (Bld) [#/Vol] 0.5 10*3/uL 0.0 - 0.8 10*3/uL [facility] Monocytes Manual 3 [facility] alth Monocytes/100 WBC (Bld) 3 % 2 - 10 % [facility] Myelocytes (Bld) [#/Vol] 0.3 10*3/uL High NINF - 0.0 10*3/uL [facility] Myelocytes Manual 2 [facility] ealth Myelocytes/100 WBC (Bld) 2 % High NINF - 0 % [facility] Neutrophils (Bld) [#/Vol] 11.3 10*3/uL High 1.8 - 7.0 10*3/uL [facility] Neutrophils Manual 70 [facility] Neutrophils.vacuolated LM Ql (Bld) Present Abnormal (none) [facility] Platelet morphology finding Nom (Bld) Normal [facility] RBC morphology finding Nom (Bld) Normal [facility] Segmented neutrophils/100 WBC (Bld) 70 % 40 - 80 % [facility] WBC corrected for nucl RBC (Bld) [#/Vol] 16.20 10*3/uL High 3.60 - 10.70 10*3/uL [facility] No Panel Informationon 06-21 Interpretation and review of laboratory results Abnormal [facility] Interpretation and review of laboratory results Abnormal [facility] CBC W Auto Differential pane l (Bld)on 06-20-2022 Basophils (Bld) [#/Vol] 0.2 10*3/uL 0.0 - 0.2 10*3/uL [facility] Basophils/100 WBC (Bld) 0.9 % 0.0 - 2.0 % [facility] Eosinophils (Bld) [#/Vol] 0.6 10*3/uL High 0.0 - 0.5 10*3/uL [facility] Eosinophils/100 WBC (Bld) 3.1 % 1.0 - 6.0 % [facility] Erythrocyte distribution width (RBC) [Ratio] 13.7 % 11.5 - 14.5 % [facility] Hematocrit (Bld) [Volume fraction] 38.9 % Low 40.0 - 52.0 % [facility] Hemoglobin (Bld) [Mass/Vol] 13.2 g/dL 13.0 - 18.0 g/dL [facility] Interpretation and review of laboratory results Abnormal [facility] Lymphocytes (Bld) [#/Vol] 3.2 10*3/uL 1.0 - 4.3 10*3/uL [facility] Lymphocytes/100 WBC (Bld) 17.9 % Low 20.0 - 40.0 % [facility] MCH (RBC) [Entitic mass] 30.5 pg 26.0 - 34.0 pg [facility] MCHC (RBC) [Mass/Vol] 33.9 % 32.0 - 36.0 % [facility] MCV (RBC) [Entitic vol] 90.0 fL 80.0 - 98.0 fL [facility] Monocytes (Bld) [#/Vol] 1.1 10*3/uL High 0.0 - 0.8 10*3/uL [facility] Monocytes/100 WBC (Bld) 6.1 % 2.0 - 10.0 % [facility] Neutrophils (Bld) [#/Vol] 12.8 10*3/uL High 1.8 - 7.0 10*3/uL [facility] Neutrophils/100 WBC (Bld) 72.0 % 40.0 - 80.0 % [facility] Nucleated RBC/100 WBC (Bld) [Ratio] 0.0 % [facility] Platelet mean volume (Bld) [Entitic vol] 7.9 fL 7.4 - 12.4 fL [facility] Platelets (Bld) [#/Vol] 389 10*3/uL 140 - 440 10*3/uL [facility] RBC (Bld) [#/Vol] 4.33 10*6/uL Low 4.40 - 5.9 0 10*6/uL [facility] WBC (Bld) [#/Vol] 17.8 10*3/uL High 3.6 - 10.7 10*3/uL [facility] Comprehensive metabolic 1998 panelon 06-20-2022 Albumin [Mass/Vol] 3.3 g/dL Low 3.5 - 5.0 g/dL [facility] ALP [Catalytic activity/Vol] 97 U/L 38 - 126 U/L [facility] ALT [Catalytic activity/Vol] 37 U/L 0 - 49 U/L [facility] Anion gap [Moles/Vol] 3 mmol/L 3 - 13 mmol/L [facility] AST [Catalytic activity/Vol] 43 U/L 15 - 46 U/L [facility] Bilirubin [Mass/Vol] 0.6 mg/dL 0.2 - 1 .3 mg/dL [facility] Calcium [Mass/Vol] 8.2 mg/dL Low 8.4 - 10. 4 mg/dL [facility] Chloride [Moles/Vol] 90 mmol/L Low 98 - 10 7 mmol/L [facility] CO2 [Moles/Vol] 33 mmol/L High 22 - 30 mmol/L [facility] Creatinine [Mass/Vol] 0.81 mg/dL 0.66 - 1.25 mg/dL [facility] GFR/1.73 sq M.predicted MDRD (S/P/Bld) [Vol rate/Area] - PINF [facility] Glucose [Mass/Vol] 241 mg/dL High 70 - 100 mg/dL [facility] Potassium [Moles/Vol] 3.8 mmol/L 3.5 - 5.1 mmol/L [facility] Protein [Mass/Vol] 6.7 g/dL 6.3 - 8.2 g/dL [facility] Sodium [Moles/Vol] 126 mmol/L Low 135 - 145 mmol/L [facility] Urea nitrogen [Mass/Vol] 22 mg/dL High 9 - 20 mg/dL [facility] Laboratory - Chemistry and C hemistry - challengeon 06-20-2022 Lipase [Catalytic activity/Vol] 1528 U/L High 23 - 300 U/L [facility] Magnesium [Mass/Vol] 2.2 mg/dL 1.6 - 2 .3 mg/dL [facility] Magnesium [Mass/Vol]on 06-20 Interpretation and review of laboratory results Normal [facility] No Panel Informationon 06-20 Interpretation and review of laboratory results Abnormal [facility] CBC W Auto Differential pane l (Bld)on 06-19-2022 Erythrocyte distribution width (RBC) [Ratio] 13.9 % 11.5 - 14.5 % [facility] Hematocrit (Bld) [Volume fraction] 38.2 % Low 40.0 - 52.0 % [facility] Hemoglobin (Bld) [Mass/Vol] 13.0 g/dL 13.0 - 18.0 g/dL [facility] MCH (RBC) [Entitic mass] 30.4 pg 26.0 - 34.0 pg [facility] MCHC (RBC) [Mass/Vol] 34.0 % 32.0 - 36.0 % [facility] MCV (RBC) [Entitic vol] 89.6 fL 80.0 - 98.0 fL [facility] Nucleated RBC/100 WBC (Bld) [Ratio] 0.1 % [facility] Platelet mean volume (Bld) [Entitic vol] 8.1 fL 7.4 - 12.4 fL [facility] Platelets (Bld) [#/Vol] 325 10*3/uL 140 - 440 10*3/uL [facility] RBC (Bld) [#/Vol] 4.26 10*6/uL Low 4.40 - 5.9 0 10*6/uL [facility] WBC (Bld) [#/Vol] 19.0 10*3/uL High 3.6 - 10.7 10*3/uL [facility] Comprehensive metabolic 1998 panelon 06-19-2022 Albumin [Mass/Vol] 3.2 g/dL Low 3.5 - 5.0 g/dL [facility] ALP [Catalytic activity/Vol] 100 U/L 38 - 126 U/L [facility] ALT [Catalytic activity/Vol] 36 U/L 0 - 49 U/L [facility] Anion gap [Moles/Vol] 1 mmol/L Low 3 - 13 mmol/L [facility] AST [Catalytic activity/Vol] 43 U/L 15 - 46 U/L [facility] Bilirubin [Mass/Vol] 0.6 mg/dL 0.2 - 1 .3 mg/dL [facility] Calcium [Mass/Vol] 7.9 mg/dL Low 8.4 - 10. 4 mg/dL [facility] Chloride [Moles/Vol] 90 mmol/L Low 98 - 10 7 mmol/L [facility] CO2 [Moles/Vol] 34 mmol/L High 22 - 30 mmol/L [facility] Creatinine [Mass/Vol] 0.85 mg/dL 0.66 - 1.25 mg/dL [facility] GFR/1.73 sq M.predicted MDRD (S/P/Bld) [Vol rate/Area] - PINF [facility] Glucose [Mass/Vol] 250 mg/dL High 70 - 100 mg/dL [facility] Potassium [Moles/Vol] 3.9 mmol/L 3.5 - 5.1 mmol/L [facility] Protein [Mass/Vol] 6.6 g/dL 6.3 - 8.2 g/dL [facility] Sodium [Moles/Vol] 126 mmol/L Low 135 - 145 mmol/L [facility] Urea nitrogen [Mass/Vol] 24 mg/dL High 9 - 20 mg/dL [facility] Laboratory - Chemistry and C hemistry - challengeon 06-19-2022 Lipase [Catalytic activity/Vol] 1500 U/L High 23 - 300 U/L [facility] Magnesium [Mass/Vol] 2.2 mg/dL 1.6 - 2 .3 mg/dL [facility] Magnesium [Mass/Vol]on 06-19 Interpretation and review of laboratory results Normal [facility] Manual differential performe d Ql (Bld)on 06-19-2022 Band form neutrophils (Bld) [#/Vol] 0.2 10*3/uL High NINF - 0.0 10*3/uL [facility] Band form neutrophils/100 WBC (Bld) 1 % High NINF - 0 % [facility] Bands Manual 1 [facility] Cells Counted Total (Bld) [#] 100 {cells} [facility] Eosinophils (Bld) [#/Vol] 1.1 10*3/uL High 0.0 - 0.5 10*3/uL [facility] Eosinophils Manual 6 High 0 - 1 [facility] Eosinophils/100 WBC (Bld) 6 % 1 - 6 % [facility] Leukocyte morphology finding Nom (Bld) Normal [facility] Lymphocytes (Bld) [#/Vol] 2.1 10*3/uL 1.0 - 4.3 10*3/uL [facility] Lymphocytes Manual 11 [facility] Lymphocytes/100 WBC (Bld) 11 % Low 20 - 40 % [facility] Monocytes (Bld) [#/Vol] 0.6 10*3/uL 0.0 - 0.8 10*3/uL [facility] Monocytes Manual 3 [facility] alth Monocytes/100 WBC (Bld) 3 % 2 - 10 % [facility] Myelocytes (Bld) [#/Vol] 0.6 10*3/uL High NINF - 0.0 10*3/uL [facility] Myelocytes Manual 3 [facility] Myelocytes/100 WBC (Bld) 3 % High NINF - 0 % [facility] Neutrophils (Bld) [#/Vol] 14.6 10*3/uL High 1.8 - 7.0 10*3/uL [facility] Neutrophils Manual 76 [facility] Platelet morphology finding Nom (Bld) Normal [facility] Polychromasia LM Ql (Bld) Slight Abnormal (none) [facility] Segmented neutrophils/100 WBC (Bld) 76 % 40 - 80 % [facility] WBC corrected for nucl RBC (Bld) [#/Vol] 19.00 10*3/uL High 3.60 - 10.70 10*3/uL [facility] No Panel Informationon 06-19 Interpretation and review of laboratory results Abnormal [facility] Interpretation and review of laboratory results Abnormal [facility] XR Chest Single viewon 06-19 [facility] Radiology Study observation (narrative) [facility] harvey CBC W Auto Differential pane l (Bld)on 06-18-2022 Erythrocyte distribution width (RBC) [Ratio] 13.6 % 11.5 - 14.5 % [facility] Hematocrit (Bld) [Volume fraction] 39.5 % Low 40.0 - 52.0 % [facility] Hemoglobin (Bld) [Mass/Vol] 13.3 g/dL 13.0 - 18.0 g/dL [facility] MCH (RBC) [Entitic mass] 30.3 pg 26.0 - 34.0 pg [facility] MCHC (RBC) [Mass/Vol] 33.6 % 32.0 - 36.0 % [facility] MCV (RBC) [Entitic vol] 90.0 fL 80.0 - 98.0 fL [facility] Nucleated RBC/100 WBC (Bld) [Ratio] 0.2 % [facility] Platelet mean volume (Bld) [Entitic vol] 8.1 fL 7.4 - 12.4 fL [facility] Platelets (Bld) [#/Vol] 304 10*3/uL 140 - 440 10*3/uL [facility] RBC (Bld) [#/Vol] 4.39 10*6/uL Low 4.40 - 5.9 0 10*6/uL [facility] WBC (Bld) [#/Vol] 20.7 10*3/uL High 3.6 - 10.7 10*3/uL [facility] Comprehensive metabolic 1998 panelon 06-18-2022 Albumin [Mass/Vol] 3.3 g/dL Low 3.5 - 5.0 g/dL [facility] ALP [Catalytic activity/Vol] 118 U/L 38 - 126 U/L [facility] ALT [Catalytic activity/Vol] 28 U/L 0 - 49 U/L [facility] Anion gap [Moles/Vol] 2 mmol/L Low 3 - 13 mmol/L [facility] AST [Catalytic activity/Vol] 40 U/L 15 - 46 U/L [facility] Bilirubin [Mass/Vol] 0.7 mg/dL 0.2 - 1 .3 mg/dL [facility] Calcium [Mass/Vol] 8.3 mg/dL Low 8.4 - 10. 4 mg/dL [facility] Chloride [Moles/Vol] 93 mmol/L Low 98 - 10 7 mmol/L [facility] CO2 [Moles/Vol] 35 mmol/L High 22 - 30 mmol/L [facility] Creatinine [Mass/Vol] 0.88 mg/dL 0.66 - 1.25 mg/dL [facility] GFR/1.73 sq M.predicted MDRD (S/P/Bld) [Vol rate/Area] - PINF [facility] Glucose [Mass/Vol] 195 mg/dL High 70 - 100 mg/dL [facility] Potassium [Moles/Vol] 3.8 mmol/L 3.5 - 5.1 mmol/L [facility] Protein [Mass/Vol] 6.9 g/dL 6.3 - 8.2 g/dL [facility] Sodium [Moles/Vol] 129 mmol/L Low 135 - 145 mmol/L [facility] Urea nitrogen [Mass/Vol] 22 mg/dL High 9 - 20 mg/dL [facility] Laboratory - Chemistry and C hemistry - challengeon 06-18-2022 Lipase [Catalytic activity/Vol] 1360 U/L High 23 - 300 U/L [facility] Magnesium [Mass/Vol] 2.2 mg/dL 1.6 - 2 .3 mg/dL [facility] Magnesium [Mass/Vol]on 06-18 Interpretation and review of laboratory results Normal [facility] [employer] Manual differential performe d Ql (Bld)on 06-18-2022 Band form neutrophils (Bld) [#/Vol] 0.4 10*3/uL High NINF - 0.0 10*3/uL [facility] Band form neutrophils/100 WBC (Bld) 2 % High NINF - 0 % [facility] [employer] Bands Manual 2 [facility] Cells Counted Total (Bld) [#] 100 {cells} [facility] Eosinophils (Bld) [#/Vol] 0.2 10*3/uL 0.0 - 0.5 10*3/uL [facility] Eosinophils Manual 1 0 - 1 [facility] [employer] Eosinophils/100 WBC (Bld) 1 % 1 - 6 % [facility] Leukocyte morphology finding Nom (Bld) Normal [facility] Lymphocytes (Bld) [#/Vol] 1.7 10*3/uL 1.0 - 4.3 10*3/uL [facility] Lymphocytes Manual 8 [facility] Lymphocytes/100 WBC (Bld) 8 % Low 20 - 40 % [facility] Metamyelocytes (Bld) [#/Vol] 0.4 10*3/uL High NINF - 0.0 10*3/uL [facility] Metamyelocytes Manual 2 [facility] Metamyelocytes/100 WBC (Bld) 2 % High NINF - 0 % [facility] Monocytes (Bld) [#/Vol] 0.8 10*3/uL 0.0 - 0.8 10*3/uL [facility] Monocytes Manual 4 [facility] alth Monocytes/100 WBC (Bld) 4 % 2 - 10 % [facility] Myelocytes (Bld) [#/Vol] 0.4 10*3/uL High NINF - 0.0 10*3/uL [facility] Myelocytes Manual 2 [facility] ealth Myelocytes/100 WBC (Bld) 2 % High NINF - 0 % [facility] Neutrophils (Bld) [#/Vol] 17.2 10*3/uL High 1.8 - 7.0 10*3/uL [facility] Neutrophils Manual 81 [facility] Nucleated RBC/100 WBC (Bld) [Ratio] 1 % [facility] Platelet morphology finding Nom (Bld) Normal [facility] Polychromasia LM Ql (Bld) Slight Abnormal (none) [facility] Segmented neutrophils/100 WBC (Bld) 81 % High 40 - 80 % [facility] Stomatocytes LM Ql (Bld) Slight Abnormal (none) [facility] WBC corrected for nucl RBC (Bld) [#/Vol] 20.70 10*3/uL High 3.60 - 10.70 10*3/uL [facility] No Panel Informationon 06-18 Interpretation and review of laboratory results Abnormal [facility] Interpretation and review of laboratory results Abnormal [facility] SARS-CoV-2 (COVID-19) RNA pa sol FAN+probe (Resp)on 06-18-2022 Interpretation and review of laboratory results Normal [facility] SARS-CoV-2 (COVID-19) RNA FAN+probe Ql (Resp) Not detected Not Detected [facility] XR Chest Single viewon 06-18 [facility] Radiology Study observation (narrative) [facility] XR Chest Single viewOrdered By: Brady Douglas on 06-18-2022 [facility] Work Phone: Bacteria identified Aer cx N om (Lower resp)Ordered By: Latoya Diaz on 06-17-2022 Gram Stain Result Moderate Polymorphonuclear leukocytes per low power field Abnormal [facility] Gram Stain Result Moderate Epithelial cells per low power field Abnormal [facility] Gram Stain Result Positive Abnormal [facility] Gram Stain Result Negative Abnormal [facility] Interpretation and review of laboratory results Abnormal [facility] CBC W Auto Differential pane l (Bld)on 06-17-2022 Erythrocyte distribution width (RBC) [Ratio] 13.9 % 11.5 - 14.5 % [facility] Hematocrit (Bld) [Volume fraction] 37.7 % Low 40.0 - 52.0 % [facility] Hemoglobin (Bld) [Mass/Vol] 12.6 g/dL Low 13.0 - 18.0 g/dL [facility] MCH (RBC) [Entitic mass] 30.2 pg 26.0 - 34.0 pg [facility] MCHC (RBC) [Mass/Vol] 33.5 % 32.0 - 36.0 % [facility] MCV (RBC) [Entitic vol] 90.0 fL 80.0 - 98.0 fL [facility] Nucleated RBC/100 WBC (Bld) [Ratio] 0.1 % [facility] Platelet mean volume (Bld) [Entitic vol] 8.0 fL 7.4 - 12.4 fL [facility] Platelets (Bld) [#/Vol] 264 10*3/uL 140 - 440 10*3/uL [facility] RBC (Bld) [#/Vol] 4.18 10*6/uL Low 4.40 - 5.9 0 10*6/uL [facility] WBC (Bld) [#/Vol] 19.8 10*3/uL High 3.6 - 10.7 10*3/uL [facility] Comprehensive metabolic 1998 panelon 06-17-2022 Albumin [Mass/Vol] 3.1 g/dL Low 3.5 - 5.0 g/dL [facility] ALP [Catalytic activity/Vol] 117 U/L 38 - 126 U/L [facility] ALT [Catalytic activity/Vol] 23 U/L 0 - 49 U/L [facility] Anion gap [Moles/Vol] 2 mmol/L Low 3 - 13 mmol/L [facility] AST [Catalytic activity/Vol] 35 U/L 15 - 46 U/L [facility] Bilirubin [Mass/Vol] 0.6 mg/dL 0.2 - 1 .3 mg/dL [facility] Calcium [Mass/Vol] 8.0 mg/dL Low 8.4 - 10. 4 mg/dL [facility] Chloride [Moles/Vol] 95 mmol/L Low 98 - 10 7 mmol/L [facility] CO2 [Moles/Vol] 33 mmol/L High 22 - 30 mmol/L [facility] Creatinine [Mass/Vol] 0.82 mg/dL 0.66 - 1.25 mg/dL [facility] GFR/1.73 sq M.predicted MDRD (S/P/Bld) [Vol rate/Area] - PINF [facility] Glucose [Mass/Vol] 181 mg/dL High 70 - 100 mg/dL [facility] Potassium [Moles/Vol] 3.7 mmol/L 3.5 - 5.1 mmol/L [facility] Protein [Mass/Vol] 6.5 g/dL 6.3 - 8.2 g/dL [facility] Sodium [Moles/Vol] 130 mmol/L Low 135 - 145 mmol/L [facility] Urea nitrogen [Mass/Vol] 19 mg/dL 9 - 20 mg/dL [facility] Laboratory - Chemistry and C hemistry - challengeon 06-17-2022 Lipase [Catalytic activity/Vol] 1078 U/L High 23 - 300 U/L [facility] Magnesium [Mass/Vol] 2.2 mg/dL 1.6 - 2 .3 mg/dL [facility] Laboratory - Microbiology an d Antimicrobial susceptibilityOrdered By: Latoya Diaz on 06-17-2022 Bacteria identified Aer cx Nom (Lower resp) Few respiratory vikram present. [facility] Magnesium [Mass/Vol]on 06-17 Interpretation and review of laboratory results Normal [facility] Manual differential performe d Ql (Bld)on 06-17-2022 [...] 0.0 10*3/uL [facility] Metamyelocytes Manual 3 [facility] Metamyelocytes/100 WBC (Bld) 3 % High NINF - 0 % [facility] Monocytes (Bld) [#/Vol] 1.4 10*3/uL High 0.0 - 0.8 10*3/uL [facility] Monocytes Manual 7 [facility] Monocytes/100 WBC (Bld) 7 % 2 - 10 % [facility] Myelocytes (Bld) [#/Vol] 0.4 10*3/uL High NINF - 0.0 10*3/uL [facility] Myelocytes Manual 2 [facility] Myelocytes/100 WBC (Bld) 2 % High NINF - 0 % [facility] Neutrophils (Bld) [#/Vol] 16.2 10*3/uL High 1.8 - 7.0 10*3/uL [facility] Neutrophils Manual 81 [facility] Ovalocytes LM Ql (Bld) Slight Abnormal (none) [facility] Platelet morphology finding Nom (Bld) Normal [facility] Polychromasia LM Ql (Bld) Slight Abnormal (none) [facility] Segmented neutrophils/100 WBC (Bld) 81 % High 40 - 80 % [facility] Stomatocytes LM Ql (Bld) Slight Abnormal (none) [facility] WBC corrected for nucl RBC (Bld) [#/Vol] 19.80 10*3/uL High 3.60 - 10.70 10*3/uL [facility] No Panel Informationon 06-17 Interpretation and review of laboratory results Abnormal [facility] Interpretation and review of laboratory results Abnormal [facility] RF videography Hypopharynx a nd Esophagus Views for swallowing function W speech and W barium contrast Jerry 06-17-2022 [facility] Radiology Study observation (narrative) [facility] RF videography Hypopharynx a nd Esophagus Views for swallowing function W speech and W barium contrast POOrdered By: Juve Odonnell on 06-17-2022 [facility] Work Phone: XR Chest Single viewon 06-17 [facility] Radiology Study observation (narrative) [facility] CBC W Auto Differential pane l (Bld)on 06-16-2022 Erythrocyte distribution width (RBC) [Ratio] 13.6 % 11.5 - 14.5 % [facility] Hematocrit (Bld) [Volume fraction] 37.8 % Low 40.0 - 52.0 % [facility] Hemoglobin (Bld) [Mass/Vol] 12.6 g/dL Low 13.0 - 18.0 g/dL [facility] MCH (RBC) [Entitic mass] 30.6 pg 26.0 - 34.0 pg [facility] MCHC (RBC) [Mass/Vol] 33.3 % 32.0 - 36.0 % [facility] MCV (RBC) [Entitic vol] 92.0 fL 80.0 - 98.0 fL [facility] Nucleated RBC/100 WBC (Bld) [Ratio] 0.1 % [facility] Platelet mean volume (Bld) [Entitic vol] 7.9 fL 7.4 - 12.4 fL [facility] Platelets (Bld) [#/Vol] 229 10*3/uL 140 - 440 10*3/uL [facility] RBC (Bld) [#/Vol] 4.11 10*6/uL Low 4.40 - 5.9 0 10*6/uL [facility] WBC (Bld) [#/Vol] 19.9 10*3/uL High 3.6 - 10.7 10*3/uL [facility] Comprehensive metabolic 1998 panelon 06-16-2022 Albumin [Mass/Vol] 3.1 g/dL Low 3.5 - 5.0 g/dL [facility] ALP [Catalytic activity/Vol] 114 U/L 38 - 126 U/L [facility] ALT [Catalytic activity/Vol] 25 U/L 0 - 49 U/L [facility] Anion gap [Moles/Vol] 5 mmol/L 3 - 13 mmol/L [facility] [facility] AST [Catalytic activity/Vol] 36 U/L 15 - 46 U/L [facility] Bilirubin [Mass/Vol] 0.7 mg/dL 0.2 - 1 .3 mg/dL [facility] Calcium [Mass/Vol] 8.1 mg/dL Low 8.4 - 10. 4 mg/dL [facility] Chloride [Moles/Vol] 95 mmol/L Low 98 - 10 7 mmol/L [facility] CO2 [Moles/Vol] 32 mmol/L High 22 - 30 mmol/L [facility] Creatinine [Mass/Vol] 0.80 mg/dL 0.66 - 1.25 mg/dL [facility] GFR/1.73 sq M.predicted MDRD (S/P/Bld) [Vol rate/Area] - PINF [facility] Glucose [Mass/Vol] 173 mg/dL High 70 - 100 mg/dL [facility] Potassium [Moles/Vol] 4.0 mmol/L 3.5 - 5.1 mmol/L [facility] Protein [Mass/Vol] 6.2 g/dL Low 6.3 - 8.2 g/dL [facility] Sodium [Moles/Vol] 132 mmol/L Low 135 - 145 mmol/L [facility] Urea nitrogen [Mass/Vol] 16 mg/dL 9 - 20 mg/dL [facility] Laboratory - Chemistry and C hemistry - challengeon 06-16-2022 Glucose [Mass/Vol] 251 mg/dL High 70 - 100 mg/dL [facility] Ammonia (P) [Moles/Vol] 13 umol/L 9 - 30 umol/L [facility] Glucose [Mass/Vol] 175 mg/dL High 70 - 100 mg/dL [facility] Base excess Calc (Bld) [Moles/Vol] 5.0 mmol/L High -3.0 - 3.0 mmol/L [facility] CO2 (Bld) [Partial pressure] 42.3 mm[Hg] [facility] CO2 [Moles/Vol] 30.8 mmol/L High 23.0 - 27.0 mmol/L [facility] HCO3 (Bld) [Moles/Vol] 29.5 mmol/L High 21.0 - 25.0 mmol/L [facility] Oxygen (Bld) [Partial pressure] 67.7 mm[Hg] Low [facility] pH (Bld) 7.452 [pH] High 7.350 - 7.450 pH [facility] Procalcitonin [Mass/Vol] 0.46 ng/mL High 0.00 - 0.09 ng/mL [facility] Lipase [Catalytic activity/Vol] 718 U/L High 23 - 300 U/L [facility] Magnesium [Mass/Vol] 2.2 mg/dL 1.6 - 2 .3 mg/dL [facility] Laboratory - Drug toxicology on 06-16-2022 Vancomycin [Mass/Vol] 14.3 ug/mL Low 15.0 - 20.0 ug/mL [facility] Magnesium [Mass/Vol]on 06-16 Interpretation and review of laboratory results Normal [facility] [employer] Manual differential performe d Ql (Bld)on 06-16-2022 Basophilic stippling LM Ql (Bld) Rare Abnormal (none) [facility] Cells Counted Total (Bld) [#] 100 {cells} [facility] Eosinophils (Bld) [#/Vol] 0.8 10*3/uL High 0.0 - 0.5 10*3/uL [facility] [employer] Eosinophils Manual 4 High 0 - 1 [facility] Eosinophils/100 WBC (Bld) 4 % 1 - 6 % [facility] Giant platelets LM Ql (Bld) Slight Abnormal (none) [facility] Lymphocytes (Bld) [#/Vol] 0.6 10*3/uL Low 1.0 - 4.3 10*3/uL [facility] [employer] Lymphocytes Manual 3 [facility] Lymphocytes/100 WBC (Bld) 3 % Low 20 - 40 % [facility] Monocytes (Bld) [#/Vol] 1.0 10*3/uL High 0.0 - 0.8 10*3/uL [facility] Monocytes Manual 5 [facility] alth Monocytes/100 WBC (Bld) 5 % 2 - 10 % [facility] Neutrophils (Bld) [#/Vol] 17.5 10*3/uL High 1.8 - 7.0 10*3/uL [facility] Neutrophils Manual 88 [facility] Neutrophils.hypersegmen chhaya LM Ql (Bld) Present Abnormal (none) [facility] Nucleated RBC/100 WBC (Bld) [Ratio] 1 % [facility] Ovalocytes LM Ql (Bld) Slight Abnormal (none) [facility] Polychromasia LM Ql (Bld) Slight Abnormal (none) [facility] Segmented neutrophils/100 WBC (Bld) 88 % High 40 - 80 % [facility] Stomatocytes LM Ql (Bld) Slight Abnormal (none) [facility] Toxic granules LM Ql (Bld) Present Abnormal (none) [facility] WBC corrected for nucl RBC (Bld) [#/Vol] 19.90 10*3/uL High 3.60 - 10.70 10*3/uL [facility] No Panel Informationon 06-16 Interpretation and review of laboratory results Abnormal [facility] Interpretation and review of laboratory results Abnormal [facility] Interpretation and review of laboratory results Normal [facility] Interpretation and review of laboratory results Abnormal [facility] FIO2 4 [facility] Interpretation and review of laboratory results Abnormal [facility] Interpretation and review of laboratory results Abnormal [facility] Interpretation and review of laboratory results Abnormal [facility] Procalcitonin [Mass/Vol]on 0 06-16-2022 Interpretation and review of laboratory results Abnormal [facility] XR Chest Single viewon 06-16 [facility] Radiology Study observation (narrative) [facility] alth XR Chest Single viewOrdered By: Loki Roberts on 06-16-2022 [facility] Work Phone: Bacteria identified Anaer cx Nom (Unsp spec)on 06-15-2022 Interpretation and review of laboratory results Normal [facility] Bacteria identified Cx Nom ( Bld)on 06-15-2022 Interpretation and review of laboratory results Normal [facility] CBC W Auto Differential pane l (Bld)on 06-15-2022 Erythrocyte distribution width (RBC) [Ratio] 13.8 % 11.5 - 14.5 % [facility] Hematocrit (Bld) [Volume fraction] 37.1 % Low 40.0 - 52.0 % [facility] Hemoglobin (Bld) [Mass/Vol] 12.2 g/dL Low 13.0 - 18.0 g/dL [facility] MCH (RBC) [Entitic mass] 30.4 pg 26.0 - 34.0 pg [facility] MCHC (RBC) [Mass/Vol] 33.0 % 32.0 - 36.0 % [facility] MCV (RBC) [Entitic vol] 92.1 fL 80.0 - 98.0 fL [facility] Nucleated RBC/100 WBC (Bld) [Ratio] 0.1 % [facility] Platelet mean volume (Bld) [Entitic vol] 8.6 fL 7.4 - 12.4 fL [facility] Platelets (Bld) [#/Vol] 186 10*3/uL 140 - 440 10*3/uL [facility] RBC (Bld) [#/Vol] 4.03 10*6/uL Low 4.40 - 5.9 0 10*6/uL [facility] WBC (Bld) [#/Vol] 19.0 10*3/uL High 3.6 - 10.7 10*3/uL [facility] Comprehensive metabolic 1998 panelon 06-15-2022 Albumin [Mass/Vol] 3.0 g/dL Low 3.5 - 5.0 g/dL [facility] ALP [Catalytic activity/Vol] 111 U/L 38 - 126 U/L [facility] ALT [Catalytic activity/Vol] 26 U/L 0 - 49 U/L [facility] Anion gap [Moles/Vol] 0 mmol/L Low 3 - 13 mmol/L [facility] AST [Catalytic activity/Vol] 29 U/L 15 - 46 U/L [facility] Bilirubin [Mass/Vol] 0.6 mg/dL 0.2 - 1 .3 mg/dL [facility] Calcium [Mass/Vol] 8.0 mg/dL Low 8.4 - 10. 4 mg/dL [facility] Chloride [Moles/Vol] 95 mmol/L Low 98 - 10 7 mmol/L [facility] CO2 [Moles/Vol] 33 mmol/L High 22 - 30 mmol/L [facility] Creatinine [Mass/Vol] 0.81 mg/dL 0.66 - 1.25 mg/dL [facility] GFR/1.73 sq M.predicted MDRD (S/P/Bld) [Vol rate/Area] - PINF [facility] Glucose [Mass/Vol] 175 mg/dL High 70 - 100 mg/dL [facility] Interpretation and review of laboratory results Abnormal [facility] Potassium [Moles/Vol] 4.2 mmol/L 3.5 - 5.1 mmol/L [facility] Protein [Mass/Vol] 6.0 g/dL Low 6.3 - 8.2 g/dL [facility] Sodium [Moles/Vol] 128 mmol/L Low 135 - 145 mmol/L [facility] Urea nitrogen [Mass/Vol] 10 mg/dL 9 - 20 mg/dL [facility] Creatinine (U) [Mass/Vol]on 06-15-2022 CREATININE, URINE 89.1 mg/dL No Range [facility] Laboratory - Chemistry and C hemistry - challengeon 06-15-2022 Sodium (24H U) [Mass/Vol] 139 mmol/L High 30 - 90 mmol/L [facility] Chloride (U) [Moles/Vol] 109 mmol/L 19 - 209 mmol/L [facility] Magnesium [Mass/Vol] 2.3 mg/dL 1.6 - 2 .3 mg/dL [facility] Laboratory - Drug toxicology on 06-15-2022 Valproate [Mass/Vol] ug/mL Low 50 - 12 0 ug/mL [facility] Laboratory - Microbiology an d Antimicrobial susceptibilityon 06-15-2022 Bacteria identified Cx Nom (Bld) No growth at 5 days [facility] Bacteria identified Anaer cx Nom (Unsp spec) No growth at 5 days [facility] Laboratory - Urinalysison Protein (U) [Mass/Vol] 104 mg/dL High 0 - 1 2 mg/dL [facility] Magnesium [Mass/Vol]on 06-15 Interpretation and review of laboratory results Normal [facility] Manual differential performe d Ql (Bld)on 06-15-2022 Anisocytosis Ql (Bld) Slight Abnormal (none) [facility] Cells Counted Total (Bld) [#] 100 {cells} [facility] Eosinophils (Bld) [#/Vol] 1.0 10*3/uL High 0.0 - 0.5 10*3/uL [facility] Eosinophils Manual 5 High 0 - 1 [facility] Eosinophils/100 WBC (Bld) 5 % 1 - 6 % [facility] Leukocyte morphology finding Nom (Bld) Normal [facility] Lymphocytes (Bld) [#/Vol] 1.1 10*3/uL 1.0 - 4.3 10*3/uL [facility] Lymphocytes Manual 6 [facility] Lymphocytes/100 WBC (Bld) 6 % Low 20 - 40 % [facility] Metamyelocytes (Bld) [#/Vol] 0.2 10*3/uL High NINF - 0.0 10*3/uL [facility] Metamyelocytes Manual 1 [facility] Metamyelocytes/100 WBC (Bld) 1 % High NINF - 0 % [facility] Monocytes (Bld) [#/Vol] 1.1 10*3/uL High 0.0 - 0.8 10*3/uL [facility] Monocytes Manual 6 [facility] alth Monocytes/100 WBC (Bld) 6 % 2 - 10 % [facility] Myelocytes (Bld) [#/Vol] 0.4 10*3/uL High NINF - 0.0 10*3/uL [facility] Myelocytes Manual 2 [facility] Myel[facility]/100 WBC (Bld) 2 % High NINF - 0 % [facility] Neutrophils (Bld) [#/Vol] 15.2 10*3/uL High 1.8 - 7.0 10*3/uL [facility] Neutrophils Manual 80 [facility] Ovalocytes LM Ql (Bld) Slight Abnormal (none) [facility] Platelet morphology finding Nom (Bld) Normal [facility] Polychromasia LM Ql (Bld) Slight Abnormal (none) [facility] Segmented neutrophils/100 WBC (Bld) 80 % 40 - 80 % [facility] Stomatocytes LM Ql (Bld) Slight Abnormal (none) [facility] WBC corrected for nucl RBC (Bld) [#/Vol] 19.00 10*3/uL High 3.60 - 10.70 10*3/uL [facility] No Panel Informationon 06-15 Interpretation and review of laboratory results Abnormal [facility] Interpretation and review of laboratory results Normal [facility] Interpretation and review of laboratory results Normal [facility] OSMOLALITY, URINE 598 [facility] ealth [facility] Interpretation and review of laboratory results Abnormal [facility] Interpretation and review of laboratory results Abnormal [facility] Respiratory pathogens DNA an d RNA panel FAN+non-probe (Lower resp)on 06-15-2022 Acinetobacter baumannii complex Not detected Not Detected [facility] Adenovirus Not detected Not Detected [facility] Chlamydia pneumoniae Not detected Not Detected [facility] Enterobacter cloacae complex Not detected Not Detected [facility] Escherichia coli Not detected Not Detected [facility] FLUAV RNA FAN+non-probe Ql (Lower resp) Not detected Not Detected [facility] FLUBV RNA FAN+non-probe Ql (Lower resp) Not detected Not Detected [facility] Haemophilus influenzae Not detected Not Detected [facility] Human Metapneumovirus Not detected Not Detected [facility] Human Rhinovirus/Enterovirus Not detected Not Detected [facility] Interpretation and review of laboratory results Abnormal [facility] Klebsiella (Enterobacter) aerogenes Not detected Not Detected [facility] Klebsiella oxytoca Not detected Not Detected [facility] Klebsiella pneumoniae Not detected Not Detected [facility] Legionella pneumophila Not detected Not Detected [facility] Moraxella catarrhalis Not detected Not Detected [facility] Mycoplasma pneumoniae Not detected Not Detected [facility] Parainfluenza virus Not detected Not Detected [facility] Proteus spp Not detected Not Detected [facility] Pseudomonas aeruginosa Not detected Not Detected [facility] RSV RNA FAN+probe Ql (Resp) Not detected Not Detected [facility] S. agalactiae Org specific cx Ql (Vag fld) Not detected Not Detected [facility] SARS-CoV-2 (COVID-19) RNA FAN+probe Ql (Unsp spec) Detected Abnormal Not Detected [facility] Serratia marcescens Not detected Not Detected [facility] Staphylococcus aureus Not detected Not Detected [facility] Streptococcus pneumoniae Not detected Not Detected [facility] Streptococcus pyogenes Not detected Not Detected [facility] Urinalysis complete panel (U )Ordered By: Miranda Ware on 06-15-2022 Bacteria LM.HPF (Urine sed) [#/Area] Negative Negative /HPF [facility] Bilirubin Ql (U) Negative Negative mg/dL [facility] Clarity (U) Slightly Cloudy Abnormal Clear [facility] alth Color (U) Yellow Lt. Yellow [facility] Epithelial cells.squamous LM.HPF (Urine sed) [#/Area] Negative [facility] h Glucose Ql (U) 500 mg/dL Abnormal Normal (<70) [facility] Hemoglobin Ql (U) >1.0 Abnormal Negative mg/dL [facility] Interpretation and review of laboratory results Abnormal [facility] Ketones (U) [Mass/Vol] 20 mg/dL Abnormal Negative [facility] Leukocyte esterase Test strip Ql (U) Negative Negative Chika/uL [facility] Mucus LM.HPF (Urine sed) [#/Area] Few Negative /LPF [facility] Nitrite Ql (U) Negative Negative [facility] th pH (U) 6.5 [pH] 5.0 - 8.0 pH [facility] Protein (U) [Mass/Vol] 100 mg/dL Abnormal Negative [facility] RBC LM.HPF (Urine sed) [#/Area] /[HPF] Abnormal [facility] Specific gravity (U) [Rel density] 1.026 1.005 - 1.030 [facility] Urobilinogen (U) [Mass/Vol] 6 mg/dL Abnormal Normal (0-1) [facility] WBC LM.HPF (Urine sed) [#/Area] 6-10 Abnormal [facility] XR Chest Single viewon 06-15 [facility] Radiology Study observation (narrative) [facility] alth XR Chest Single viewOrdered By: Chaz Poon on 06-15-2022 [facility] Work Phone: Bacteria identified Aer cx N om (Lower resp)Ordered By: Jan Arvizu on 06-14-2022 Gram Stain Result Rare Epithelial cell s per low power field [facility] Gram Stain Result Moderate Polymorphonuclear leukocytes per low power field [facility] Gram Stain Result No organisms seen [facility] CBC W Auto Differential pane l (Bld)on 06-14-2022 Erythrocyte distribution width (RBC) [Ratio] 13.6 % 11.5 - 14.5 % [facility] Hematocrit (Bld) [Volume fraction] 36.3 % Low 40.0 - 52.0 % [facility] Hemoglobin (Bld) [Mass/Vol] 12.2 g/dL Low 13.0 - 18.0 g/dL [facility] MCH (RBC) [Entitic mass] 30.7 pg 26.0 - 34.0 pg [facility] MCHC (RBC) [Mass/Vol] 33.7 % 32.0 - 36.0 % [facility] MCV (RBC) [Entitic vol] 91.1 fL 80.0 - 98.0 fL [facility] Nucleated RBC/100 WBC (Bld) [Ratio] 0.0 % [facility] Platelet mean volume (Bld) [Entitic vol] 8.7 fL 7.4 - 12.4 fL [facility] Platelets (Bld) [#/Vol] 166 10*3/uL 140 - 440 10*3/uL [facility] RBC (Bld) [#/Vol] 3.98 10*6/uL Low 4.40 - 5.9 0 10*6/uL [facility] WBC (Bld) [#/Vol] 18.7 10*3/uL High 3.6 - 10.7 10*3/uL [facility] CRP [Mass/Vol]on 06-14-2022 Interpretation and review of laboratory results Abnormal [facility] Comprehensive metabolic 1998 panelon 06-14-2022 Albumin [Mass/Vol] 2.9 g/dL Low 3.5 - 5.0 g/dL [facility] ALP [Catalytic activity/Vol] 106 U/L 38 - 126 U/L [facility] ALT [Catalytic activity/Vol] 36 U/L 0 - 49 U/L [facility] Anion gap [Moles/Vol] -3 mmol/L Low 3 - 13 mmol/L [facility] AST [Catalytic activity/Vol] 41 U/L 15 - 46 U/L [facility] Bilirubin [Mass/Vol] 0.7 mg/dL 0.2 - 1 .3 mg/dL [facility] Calcium [Mass/Vol] 7.9 mg/dL Low 8.4 - 10. 4 mg/dL [facility] Chloride [Moles/Vol] 98 mmol/L 98 - 10 7 mmol/L [facility] CO2 [Moles/Vol] 32 mmol/L High 22 - 30 mmol/L [facility] Creatinine [Mass/Vol] 0.71 mg/dL 0.66 - 1.25 mg/dL [facility] GFR/1.73 sq M.predicted MDRD (S/P/Bld) [Vol rate/Area] - PINF [facility] Glucose [Mass/Vol] 171 mg/dL High 70 - 100 mg/dL [facility] Interpretation and review of laboratory results Abnormal [facility] Potassium [Moles/Vol] 4.2 mmol/L 3.5 - 5.1 mmol/L [facility] Protein [Mass/Vol] 5.9 g/dL Low 6.3 - 8.2 g/dL [facility] Sodium [Moles/Vol] 127 mmol/L Low 135 - 145 mmol/L [facility] Urea nitrogen [Mass/Vol] 8 mg/dL Low 9 - 20 mg/dL [facility] Laboratory - Chemistry and C hemistry - challengeon 06-14-2022 Procalcitonin [Mass/Vol] 0.47 ng/mL High 0.00 - 0.09 ng/mL [facility] CRP [Mass/Vol] 195.0 mg/L High NINF - 10.0 mg/L [facility] Magnesium [Mass/Vol] 2.2 mg/dL 1.6 - 2 .3 mg/dL [facility] Lipase [Catalytic activity/Vol] 434 U/L High 23 - 300 U/L [facility] Laboratory - Microbiology an d Antimicrobial susceptibilityOrdered By: Jan Arvizu on 06-14-2022 Bacteria identified Aer cx Nom (Lower resp) Rare respiratory vikram present. [facility] Lipase [Catalytic activity/V ol]on 06-14-2022 Interpretation and review of laboratory results Abnormal [facility] Magnesium [Mass/Vol]on 06-14 Interpretation and review of laboratory results Normal [facility] Manual differential performe d Ql (Bld)on 06-14-2022 Anisocytosis Ql (Bld) Slight Abnormal (none) [facility] Band form neutrophils (Bld) [#/Vol] 0.2 10*3/uL High NINF - 0.0 10*3/uL [facility] Band form neutrophils/100 WBC (Bld) 1 % High NINF - 0 % [facility] Bands Manual 1 [facility] Cells Counted Total (Bld) [#] 100 {cells} [facility] Eosinophils (Bld) [#/Vol] 0.7 10*3/uL High 0.0 - 0.5 10*3/uL [facility] Eosinophils Manual 4 High 0 - 1 [facility] Eosinophils/100 WBC (Bld) 4 % 1 - 6 % [facility] Leukocyte morphology finding Nom (Bld) Normal [facility] Lymphocytes (Bld) [#/Vol] 1.9 10*3/uL 1.0 - 4.3 10*3/uL [facility] Lymphocytes Manual 10 [facility] Lymphocytes/100 WBC (Bld) 10 % Low 20 - 40 % [facility] Monocytes (Bld) [#/Vol] 0.6 10*3/uL 0.0 - 0.8 10*3/uL [facility] Monocytes Manual 3 [facility] alth Monocytes/100 WBC (Bld) 3 % 2 - 10 % [facility] Myelocytes (Bld) [#/Vol] 0.4 10*3/uL High NINF - 0.0 10*3/uL [facility] Myelocytes Manual 2 [facility] ealth Myelocytes/100 WBC (Bld) 2 % High NINF - 0 % [facility] Neutrophils (Bld) [#/Vol] 15.1 10*3/uL High 1.8 - 7.0 10*3/uL [facility] Neutrophils Manual 80 [facility] Nucleated RBC/100 WBC (Bld) [Ratio] 1 % [facility] Ovalocytes LM Ql (Bld) Slight Abnormal (none) [facility] Platelet morphology finding Nom (Bld) Normal [facility] Polychromasia LM Ql (Bld) Slight Abnormal (none) [facility] Segmented neutrophils/100 WBC (Bld) 80 % 40 - 80 % [facility] WBC corrected for nucl RBC (Bld) [#/Vol] 18.70 10*3/uL High 3.60 - 10.70 10*3/uL [facility] No Panel Informationon 06-14 Interpretation and review of laboratory results Abnormal [facility] Procalcitonin [Mass/Vol]on 0 06-14-2022 Interpretation and review of laboratory results Abnormal [facility] Bacteria identified Aer cx N om (Unsp spec)Ordered By: Des [place] on 06-13-2022 Gram Stain Result Rare Polymorphonucle ar leukocytes per low power field [facility] Gram Stain Result No organisms seen [facility] CBC W Auto Differential pane l (Bld)on 06-13-2022 Basophils (Bld) [#/Vol] 0.1 10*3/uL 0.0 - 0.2 10*3/uL [facility] Basophils/100 WBC (Bld) 0.4 % 0.0 - 2.0 % [facility] Eosinophils (Bld) [#/Vol] 0.2 10*3/uL 0.0 - 0.5 10*3/uL [facility] Eosinophils/100 WBC (Bld) 1.6 % 1.0 - 6.0 % [facility] Erythrocyte distribution width (RBC) [Ratio] 13.3 % 11.5 - 14.5 % [facility] Hematocrit (Bld) [Volume fraction] 35.5 % Low 40.0 - 52.0 % [facility] Hemoglobin (Bld) [Mass/Vol] 11.9 g/dL Low 13.0 - 18.0 g/dL [facility] Interpretation and review of laboratory results Abnormal [facility] Lymphocytes (Bld) [#/Vol] 1.1 10*3/uL 1.0 - 4.3 10*3/uL [facility] Lymphocytes/100 WBC (Bld) 7.8 % Low 20.0 - 40.0 % [facility] MCH (RBC) [Entitic mass] 30.9 pg 26.0 - 34.0 pg [facility] MCHC (RBC) [Mass/Vol] 33.5 % 32.0 - 36.0 % [facility] MCV (RBC) [Entitic vol] 92.0 fL 80.0 - 98.0 fL [facility] Monocytes (Bld) [#/Vol] 1.4 10*3/uL High 0.0 - 0.8 10*3/uL [facility] Monocytes/100 WBC (Bld) 9.8 % 2.0 - 10.0 % [facility] Neutrophils (Bld) [#/Vol] 11.6 10*3/uL High 1.8 - 7.0 10*3/uL [facility] Neutrophils/100 WBC (Bld) 80.4 % High 40.0 - 80.0 % [facility] Nucleated RBC/100 WBC (Bld) [Ratio] 0.0 % [facility] Platelet mean volume (Bld) [Entitic vol] 8.8 fL 7.4 - 12.4 fL [facility] Platelets (Bld) [#/Vol] 135 10*3/uL Low 140 - 440 10*3/uL [facility] RBC (Bld) [#/Vol] 3.86 10*6/uL Low 4.40 - 5.9 0 10*6/uL [facility] WBC (Bld) [#/Vol] 14.4 10*3/uL High 3.6 - 10.7 10*3/uL [facility] CT Abdomen and Pelvis W cont rast Constantine 06-13-2022 [facility] Radiology Study observation (narrative) [facility] CT Abdomen and Pelvis W cont rast IVOrdered By: Merrick Lopez on 06-13-2022 [facility] Work Phone: Comprehensive metabolic 1998 panelon 06-13-2022 Albumin [Mass/Vol] 2.7 g/dL Low 3.5 - 5.0 g/dL [facility] ALP [Catalytic activity/Vol] 77 U/L 38 - 126 U/L [facility] ALT [Catalytic activity/Vol] 26 U/L 0 - 49 U/L [facility] Anion gap [Moles/Vol] 0 mmol/L Low 3 - 13 mmol/L [facility] AST [Catalytic activity/Vol] 35 U/L 15 - 46 U/L [facility] Bilirubin [Mass/Vol] 0.8 mg/dL 0.2 - 1 .3 mg/dL [facility] Calcium [Mass/Vol] 7.3 mg/dL Low 8.4 - 10. 4 mg/dL [facility] Chloride [Moles/Vol] 100 mmol/L 98 - 10 7 mmol/L [facility] CO2 [Moles/Vol] 29 mmol/L 22 - 30 mmol/L [facility] Creatinine [Mass/Vol] 0.76 mg/dL 0.66 - 1.25 mg/dL [facility] GFR/1.73 sq M.predicted MDRD (S/P/Bld) [Vol rate/Area] - PINF [facility] Glucose [Mass/Vol] 189 mg/dL High 70 - 100 mg/dL [facility] Interpretation and review of laboratory results Abnormal [facility] Potassium [Moles/Vol] 4.0 mmol/L 3.5 - 5.1 mmol/L [facility] Protein [Mass/Vol] 5.6 g/dL Low 6.3 - 8.2 g/dL [facility] [facility] Sodium [Moles/Vol] 129 mmol/L Low 135 - 145 mmol/L [facility] Urea nitrogen [Mass/Vol] 8 mg/dL Low 9 - 20 mg/dL [facility] Laboratory - Chemistry and C hemistry - challengeon 06-13-2022 Magnesium [Mass/Vol] 2.3 mg/dL 1.6 - 2 .3 mg/dL [facility] Laboratory - Microbiology an d Antimicrobial susceptibilityOrdered By: Des Boston on 06-13-2022 Bacteria identified Aer cx Nom (Unsp spec) No growth at 72 hours [facility] Magnesium [Mass/Vol]on 06-13 Interpretation and review of laboratory results Normal [facility] No Panel Informationon 06-13 [facility] US Abdomen limitedon 023 [facility] Radiology Study observation (narrative) [facility] alth CBC W Auto Differential pane l (Bld)Ordered By: Angelica Bennett on 06-12-2022 Basophils (Bld) [#/Vol] 0.1 10*3/uL 0.0 - 0.2 10*3/uL [facility] Basophils/100 WBC (Bld) 0.5 % 0.0 - 2.0 % [facility] Eosinophils (Bld) [#/Vol] 0.2 10*3/uL 0.0 - 0.5 10*3/uL [facility] Eosinophils/100 WBC (Bld) 1.5 % 1.0 - 6.0 % [facility] Erythrocyte distribution width (RBC) [Ratio] 13.8 % 11.5 - 14.5 % [facility] Hematocrit (Bld) [Volume fraction] 35.4 % Low 40.0 - 52.0 % [facility] Hemoglobin (Bld) [Mass/Vol] 11.8 g/dL Low 13.0 - 18.0 g/dL [facility] Interpretation and review of laboratory results Abnormal [facility] Lymphocytes (Bld) [#/Vol] 1.5 10*3/uL 1.0 - 4.3 10*3/uL [facility] Lymphocytes/100 WBC (Bld) 13.0 % Low 20.0 - 40.0 % [facility] MCH (RBC) [Entitic mass] 31.0 pg 26.0 - 34.0 pg [facility] MCHC (RBC) [Mass/Vol] 33.4 % 32.0 - 36.0 % [facility] MCV (RBC) [Entitic vol] 92.8 fL 80.0 - 98.0 fL [facility] Monocytes (Bld) [#/Vol] 1.2 10*3/uL High 0.0 - 0.8 10*3/uL [facility] Monocytes/100 WBC (Bld) 10.2 % High 2.0 - 10.0 % [facility] Neutrophils (Bld) [#/Vol] 8.9 10*3/uL High 1.8 - 7.0 10*3/uL [facility] Neutrophils/100 WBC (Bld) 74.8 % 40.0 - 80.0 % [facility] Nucleated RBC/100 WBC (Bld) [Ratio] 0.0 % [facility] Platelet mean volume (Bld) [Entitic vol] 9.4 fL 7.4 - 12.4 fL [facility] Platelets (Bld) [#/Vol] 121 10*3/uL Low 140 - 440 10*3/uL [facility] RBC (Bld) [#/Vol] 3.82 10*6/uL Low 4.40 - 5.9 0 10*6/uL [facility] WBC (Bld) [#/Vol] 11.9 10*3/uL High 3.6 - 10.7 10*3/uL [facility] Comprehensive metabolic 1998 panelon 06-12-2022 Albumin [Mass/Vol] 2.6 g/dL Low 3.5 - 5.0 g/dL [facility] ALP [Catalytic activity/Vol] 67 U/L 38 - 126 U/L [facility] ALT [Catalytic activity/Vol] 17 U/L 0 - 49 U/L [facility] Anion gap [Moles/Vol] -3 mmol/L Low 3 - 13 mmol/L [facility] AST [Catalytic activity/Vol] 29 U/L 15 - 46 U/L [facility] Bilirubin [Mass/Vol] 1.1 mg/dL 0.2 - 1 .3 mg/dL [facility] Calcium [Mass/Vol] 7.0 mg/dL Low 8.4 - 10. 4 mg/dL [facility] Chloride [Moles/Vol] 104 mmol/L 98 - 10 7 mmol/L [facility] CO2 [Moles/Vol] 27 mmol/L 22 - 30 mmol/L [facility] Creatinine [Mass/Vol] 0.84 mg/dL 0.66 - 1.25 mg/dL [facility] GFR/1.73 sq M.predicted MDRD (S/P/Bld) [Vol rate/Area] - PINF [facility] Glucose [Mass/Vol] 140 mg/dL High 70 - 100 mg/dL [facility] Potassium [Moles/Vol] 4.1 mmol/L 3.5 - 5.1 mmol/L [facility] Protein [Mass/Vol] 5.2 g/dL Low 6.3 - 8.2 g/dL [facility] Sodium [Moles/Vol] 129 mmol/L Low 135 - 145 mmol/L [facility] Urea nitrogen [Mass/Vol] 11 mg/dL 9 - 20 mg/dL [facility] Laboratory - Chemistry and C hemistry - challengeon 06-12-2022 Lipase [Catalytic activity/Vol] 339 U/L High 23 - 300 U/L [facility] Magnesium [Mass/Vol] 2.0 mg/dL 1.6 - 2 .3 mg/dL [facility] Magnesium [Mass/Vol]on 06-12 Interpretation and review of laboratory results Normal [facility] No Panel InformationOrdered By: Sonia Rodriguez on 06-12-2022 Right Pop Rfx 1.[address] [facility] h Work Phone: No Panel Informationon 06-12 CV CPACS Interpretation and review of laboratory results Abnormal [facility] Respiratory pathogens DNA an d RNA panel FAN+non-probe (Lower resp)on 06-12-2022 Acinetobacter baumannii complex Not detected Not Detected [facility] Adenovirus Not detected Not Detected [facility] Chlamydia pneumoniae Not detected Not Detected [facility] Enterobacter cloacae complex Not detected Not Detected [facility] Escherichia coli Not detected Not Detected [facility] FLUAV RNA FAN+non-probe Ql (Lower resp) Not detected Not Detected [facility] FLUBV RNA FAN+non-probe Ql (Lower resp) Not detected Not Detected [facility] Haemophilus influenzae Not detected Not Detected [facility] Human Metapneumovirus Not detected Not Detected [facility] Human Rhinovirus/Enterovirus Not detected Not Detected [facility] Interpretation and review of laboratory results Normal [facility] Klebsiella (Enterobacter) aerogenes Not detected Not Detected [facility] Klebsiella oxytoca Not detected Not Detected [facility] Klebsiella pneumoniae Not detected Not Detected [facility] Legionella pneumophila Not detected Not Detected [facility] Moraxella catarrhalis Not detected Not Detected [facility] Mycoplasma pneumoniae Not detected Not Detected [facility] Parainfluenza virus Not detected Not Detected [facility] Proteus spp Not detected Not Detected [facility] Pseudomonas aeruginosa Not detected Not Detected [facility] RSV RNA FAN+probe Ql (Resp) Not detected Not Detected [facility] S. agalactiae Org specific cx Ql (Vag fld) Not detected Not Detected [facility] SARS-CoV-2 (COVID-19) RNA FAN+probe Ql (Unsp spec) Not detected Not Detected [facility] Serratia marcescens Not detected Not Detected [facility] Staphylococcus aureus Not detected Not Detected [facility] Streptococcus pneumoniae Not detected Not Detected [facility] Streptococcus pyogenes Not detected Not Detected [facility] Vascular US lower extremity venous duplex bilateralon [...] and peroneal veins were visualized in segments. Content Development Manager Details A villegas scale, color Doppler imaging and spectral Doppler analysis ultrasound was performed. During the study longitudinal and transverse views were obtained. Pulsed wave doppler was performed. The exam was performed with the patient in the supine position. Overall the study quality was adequate. CV CPACS XR Chest Single viewon 06-12 [facility]narrative[facility] Single viewOrdered By: Asad Mccarthy on 06-12-2022 [facility] Phone: XR Foot - right [address] [facility] Rad[facility] Study observation (narrative) [facility] Foot - right 3 ViewsOrder ed By: Ezra Guthrie on 06-12-2022 [facility] [employer] Work Phone: CBC W Auto Differential pane l (Bld)Ordered By: Jacobo Ward on 06-11-2022 Basophils (Bld) [#/Vol] 0.0 10*3/uL 0.0 - 0.2 10*3/uL [facility] Basophils/100 WBC (Bld) 0.2 % 0.0 - 2.0 % [facility] Eosinophils (Bld) [#/Vol] 0.0 10*3/uL 0.0 - 0.5 10*3/uL [facility] Eosinophils/100 WBC (Bld) 0.2 % Low 1.0 - 6.0 % [facility] Erythrocyte distribution width (RBC) [Ratio] 13.8 % 11.5 - 14.5 % [facility] Hematocrit (Bld) [Volume fraction] 41.0 % 40.0 - 52.0 % [facility] Hemoglobin (Bld) [Mass/Vol] 13.8 g/dL 13.0 - 18.0 g/dL [facility] Interpretation and review of laboratory results Abnormal [facility] Lymphocytes (Bld) [#/Vol] 1.8 10*3/uL 1.0 - 4.3 10*3/uL [facility] Lymphocytes/100 WBC (Bld) 10.4 % Low 20.0 - 40.0 % [facility] MCH (RBC) [Entitic mass] 31.5 pg 26.0 - 34.0 pg [facility] MCHC (RBC) [Mass/Vol] 33.7 % 32.0 - 36.0 % [facility] MCV (RBC) [Entitic vol] 93.3 fL 80.0 - 98.0 fL [facility] Monocytes (Bld) [#/Vol] 1.5 10*3/uL High 0.0 - 0.8 10*3/uL [facility] Monocytes/100 WBC (Bld) 8.5 % 2.0 - 10.0 % [facility] Neutrophils (Bld) [#/Vol] 14.0 10*3/uL High 1.8 - 7.0 10*3/uL [facility] Neutrophils/100 WBC (Bld) 80.7 % High 40.0 - 80.0 % [facility] Nucleated RBC/100 WBC (Bld) [Ratio] 0.0 % [facility] Platelet mean volume (Bld) [Entitic vol] 9.1 fL 7.4 - 12.4 fL [facility] Platelets (Bld) [#/Vol] 132 10*3/uL Low 140 - 440 10*3/uL [facility] RBC (Bld) [#/Vol] 4.40 10*6/uL 4.40 - 5.9 0 10*6/uL [facility] WBC (Bld) [#/Vol] 17.3 10*3/uL High 3.6 - 10.7 10*3/uL [facility] Comprehensive metabolic 1998 panelon 06-11-2022 Albumin [Mass/Vol] 2.9 g/dL Low 3.5 - 5.0 g/dL [facility] ALP [Catalytic activity/Vol] 69 U/L 38 - 126 U/L [facility] ALT [Catalytic activity/Vol] 15 U/L 0 - 49 U/L [facility] Anion gap [Moles/Vol] 1 mmol/L Low 3 - 13 mmol/L [facility] AST [Catalytic activity/Vol] 30 U/L 15 - 46 U/L [facility] Bilirubin [Mass/Vol] 1.2 mg/dL 0.2 - 1 .3 mg/dL [facility] Calcium [Mass/Vol] 7.0 mg/dL Low 8.4 - 10. 4 mg/dL [facility] Chloride [Moles/Vol] 104 mmol/L 98 - 10 7 mmol/L [facility] CO2 [Moles/Vol] 29 mmol/L 22 - 30 mmol/L [facility] Creatinine [Mass/Vol] 0.97 mg/dL 0.66 - 1.25 mg/dL [facility] GFR/1.73 sq M.predicted MDRD (S/P/Bld) [Vol rate/Area] 89.9 mL/min/{1.73_m2} - PINF [facility] Glucose [Mass/Vol] 145 mg/dL High 70 - 100 mg/dL [facility] Interpretation and review of laboratory results Abnormal [facility] Potassium [Moles/Vol] 4.3 mmol/L 3.5 - 5.1 mmol/L [facility] Protein [Mass/Vol] 5.7 g/dL Low 6.3 - 8.2 g/dL [facility] Sodium [Moles/Vol] 133 mmol/L Low 135 - 145 mmol/L [facility] Urea nitrogen [Mass/Vol] 16 mg/dL 9 - 20 mg/dL [facility] Laboratory - Chemistry and C hemistry - challengeon 06-11-2022 Magnesium [Mass/Vol] 2.1 mg/dL 1.6 - 2 .3 mg/dL [facility] Magnesium [Mass/Vol]on 06-11 Interpretation and review of laboratory results Normal [facility] No Panel Informationon 06-11 [facility] Laboratory - Chemistry and C hemistry - challengeOrdered By: Julissa Taylor on 06-10-2022 Triglyceride [Mass/Vol] 125 mg/dL NINF - 150 mg/dL [facility] No Panel InformationOrdered By: Ajay Cobos on 06-10-2022 Interpretation and review of laboratory results Normal [facility] Legionella pneumophila Ag Not detected Not Detected [facility] Streptococcus pneumoniae Ag Not detected Not Detected [facility] No Panel Informationon 06-10 [facility] Radiology Study observation (narrative) [facility] No Panel InformationOrdered By: Jus Barlow on 06-10-2022 [facility] Work Phone: Respiratory pathogens DNA an d RNA panel FAN+probe (Nph)on 06-10-2022 Adenovirus Not detected Not Detected [facility] B. pertussis DNA FAN+probe Ql (Unsp spec) Not detected Not Detected [facility] Bordetella parapertussis Not detected Not Detected [facility] Chlamydia pneumoniae Not detected Not Detected [facility] Coronavirus 229E Not detected Not Detected [facility] Coronavirus HKU1 Not detected Not Detected [facility] Coronavirus NL63 Not detected Not Detected [facility] Coronavirus OC43 Not detected Not Detected [facility] FLUAV RNA FAN+non-probe Ql (Nph) Not detected Not Detected [facility] FLUBV RNA FAN+non-probe Ql (Nph) Not detected Not Detected [facility] Human Metapneumovirus Not detected Not Detected [facility] Human Rhinovirus/Enterovirus Not detected Not Detected [facility] Interpretation and review of laboratory results Normal [facility] Mycoplasma pneumoniae Not detected Not Detected [facility] Parainfluenza 1 Not detected Not Detected [facility] Parainfluenza 2 Not detected Not Detected [facility] Parainfluenza 3 Not detected Not Detected [facility] Parainfluenza 4 Not detected Not Detected [facility] Respiratory Syncytial Virus Not detected Not Detected [facility] SARS-CoV-2 (COVID-19) RNA FAN+non-probe Ql (Nph) Not detected Not Detected [facility] Triglyceride [Mass/Vol]Order ed By: Julissa Taylor on 06-10-2022 Interpretation and review of laboratory results Normal [facility] Urinalysis complete panel (U )Ordered By: Bia Covington on 06-10-2022 Bacteria LM.HPF (Urine sed) [#/Area] Negative Negative /HPF [facility] Glucose Ql (U) >1,000 Abnormal Normal (<70) mg/dL [facility] Leukocyte esterase Test strip Ql (U) Negative Negative Chika/uL [facility] Protein (U) [Mass/Vol] 200 mg/dL Abnormal Negative [facility] RBC LM.HPF (Urine sed) [#/Area] 0-2 [facility] WBC LM.HPF (Urine sed) [#/Area] 3-5 [facility] Basophil percentageOrdered B y: Demetrius Fenton on 05-20-2022 Chloride [Moles/Vol] 105 mmol/L 98-107 [facility] Glucose [Mass/Vol] 144 mg/dL 74-106 [facility] Comment on above: Fasting Glucose resu lt greater than or equal to 126 mg/dL suggests DIABETES MELLITUS per A.D.A. criteria. Potassium [Moles/Vol] 4.9 mmol/L 3.5-5.1 [facility] Sodium [Moles/Vol] 138 mmol/L 136-145 [facility] Laboratory - Chemistry and C hemistry - challengeOrdered By: Demetrius Fenton on 05-20-2022 CO2 [Moles/Vol] 26.0 mmol/L 21.0-32.0 [facility] Urea nitrogen/Creatinine [Mass ratio] 20.7 mg/mg 10- [facility] No Panel InformationOrdered By: Demetrius Fenton on 05-20-2022 Estimated GFR (MDRD) Amer 62 mL/min >60 [facility] Comment on above: GFR Calc Estimated GFR (MDRD) Non-Af Amer 51 mL/min >60 [facility] Comment on above: Non- GFR Calc Serum or plasma calcium roseanne urement (mass/volume)Ordered By: Demetrius Fenton on 05-20-2022 Calcium [Mass/Vol] 8.9 mg/dL 8.5-10.1 [facility] Serum or plasma creatinine m easurement (mass/volume)Ordered By: Demetrius Fenton on 05-20-2022 Creatinine [Mass/Vol] 1.50 mg/dL 0.70-1.30 [facility] Comment on above: The validity of the calculated GFR & GFRAA in patients over 70 years has not been determined. Clinical correlation is essential. Serum or plasma urea nitroge n measurement (mass/volume)Ordered By: Demetrius Fenton on 05-20-2022 Urea nitrogen [Mass/Vol] 31 mg/dL 7-18 [facility] Thin prep Papanicolaou smear with manual screeningOrdered By: Demetrius Fenton on 05-20-2022 Thin prep Papanicolaou smear with manual screening 7 5-15 [facility] Basophil percentageOrdered B y: Demetrius Fenton on 05-13-2022 Chloride [Moles/Vol] 104 mmol/L 98-107 [facility] Glucose [Mass/Vol] 116 mg/dL 74-106 [facility] Comment on above: Fasting Glucose resu lt from 100 to 125 mg/dL suggests IMPAIRED HOMEOSTASIS per A.D.A. criteria. Potassium [Moles/Vol] 4.9 mmol/L 3.5-5.1 [facility] Sodium [Moles/Vol] 139 mmol/L 136-145 [facility] WBC (Bld) [#/Vol] 8.0 10*3/uL 4.4-11.0 [facility] Blood erythrocytes count (nu mber/volume)Ordered By: Demetrius Fenton on 05-13-2022 RBC (Bld) [#/Vol] 4.12 10*6/uL 4.6-6.2 [facility] Blood hemoglobin measurement (mass/volume)Ordered By: Demetrius Fenton on 05-13-2022 Hemoglobin (Bld) [Mass/Vol] 12.9 g/dL 13.0-16.5 [facility] Blood platelet mean volumeOr dered By: Demetrius Fenton on 05-13-2022 Platelet mean volume (Bld) [Entitic vol] 11.8 fL 6.2-12.0 [facility] Determination of erythrocyte mean corpuscular volume (MCV)Ordered By: Demetrius Fenton on 05-13-2022 MCV (RBC) [Entitic vol] 96.1 fL 80-94 [facility] Hematocrit Auto (Bld) [Volum e fraction]Ordered By: Demetrius Fenton on 05-13-2022 Hematocrit (Bld) [Volume fraction] 39.6 % 40-54 [facility] Laboratory - Chemistry and C hemistry - challengeOrdered By: Demetrius Fenton on 05-13-2022 CO2 [Moles/Vol] 27.0 mmol/L 21.0-32.0 [facility] Urea nitrogen/Creatinine [Mass ratio] 18.6 mg/mg 10-20 [facility] Laboratory - Hematology and Cell countsOrdered By: Demetrius Fenton on 05-13-2022 Erythrocyte distribution width (RBC) [Entitic vol] 45.3 fL 35.1-43.9 [facility] Erythrocyte distribution width (RBC) [Ratio] 13.2 % 11.6-14.6 [facility] MCH (RBC) [Entitic mass] 31.3 pg 27.0-32.0 [facility] MCHC Auto (RBC) [Mass/Vol]Or dered By: Demetrius Fenton on 05-13-2022 MCHC (RBC) [Mass/Vol] 32.6 g/dL 32-36 [facility] No Panel InformationOrdered By: Demetrius Fenton on 05-13-2022 Estimated GFR (MDRD) Amer 67 mL/min >60 [facility] Comment on above: GFR Calc Estimated GFR (MDRD) Non-Af Amer 55 mL/min >60 [facility] Comment on above: Non- GFR Calc Platelets bldOrdered By: Miriam Fenton on 05-13-2022 Platelets (Bld) [#/Vol] 172 10*3/uL 150-450 [facility] Serum or plasma calcium roseanne urement (mass/volume)Ordered By: Demetrius Fenton on 05-13-2022 Calcium [Mass/Vol] 9.0 mg/dL 8.5-10.1 [facility] Serum or plasma creatinine m easurement (mass/volume)Ordered By: Demetrius Fenton on 05-13-2022 Creatinine [Mass/Vol] 1.40 mg/dL 0.70-1.30 [facility] Comment on above: The validity of the calculated GFR & GFRAA in patients over 70 years has not been determined. Clinical correlation is essential. Serum or plasma urea nitroge n measurement (mass/volume)Ordered By: Demetrius Fenton on 05-13-2022 Urea nitrogen [Mass/Vol] 26 mg/dL 7-18 [facility] Thin prep Papanicolaou smear with manual screeningOrdered By: Demetrius Fenton on 05-13-2022 Thin prep Papanicolaou smear with manual screening 8 5-15 [facility] Basophil percentageOrdered B y: Demetrius Fenton on 04-29-2022 Chloride [Moles/Vol] 105 mmol/L 98-107 [facility] Glucose [Mass/Vol] 125 mg/dL 74-106 [facility] Comment on above: Fasting Glucose resu lt from 100 to 125 mg/dL suggests IMPAIRED HOMEOSTASIS per A.D.A. criteria. Potassium [Moles/Vol] 4.6 mmol/L 3.5-5.1 [facility] Sodium [Moles/Vol] 137 mmol/L 136-145 [facility] WBC (Bld) [#/Vol] 8.7 10*3/uL 4.4-11.0 [facility] Blood erythrocytes count (nu mber/volume)Ordered By: Demetrius Fenton on 04-29-2022 RBC (Bld) [#/Vol] 4.05 10*6/uL 4.6-6.2 [facility] Blood hemoglobin measurement (mass/volume)Ordered By: Demetrius Fenton on 04-29-2022 Hemoglobin (Bld) [Mass/Vol] 12.6 g/dL 13.0-16.5 [facility] Blood platelet mean volumeOr dered By: Demetrius Fenton on 04-29-2022 Platelet mean volume (Bld) [Entitic vol] 11.1 fL 6.2-12.0 [facility] Determination of erythrocyte mean corpuscular volume (MCV)Ordered By: Demetrius Fenton on 04-29-2022 MCV (RBC) [Entitic vol] 94.6 fL 80-94 [facility] Hematocrit Auto (Bld) [Volum e fraction]Ordered By: Demetrius Fenton on 04-29-2022 Hematocrit (Bld) [Volume fraction] 38.3 % 40-54 [facility] Laboratory - Chemistry and C hemistry - challengeOrdered By: Demetrius Fenton on 04-29-2022 CO2 [Moles/Vol] 26.0 mmol/L 21.0-32.0 [facility] Urea nitrogen/Creatinine [Mass ratio] 18.6 mg/mg 10-20 [facility] Laboratory - Hematology and Cell countsOrdered By: Demetrius Fenton on 04-29-2022 Erythrocyte distribution width (RBC) [Entitic vol] 44.2 fL 35.1-43.9 [facility] Erythrocyte distribution width (RBC) [Ratio] 13.1 % 11.6-14.6 [facility] MCH (RBC) [Entitic mass] 31.1 pg 27.0-32.0 [facility] MCHC Auto (RBC) [Mass/Vol]Or dered By: Demetrius Fenton on 04-29-2022 MCHC (RBC) [Mass/Vol] 32.9 g/dL 32-36 [facility] No Panel InformationOrdered By: Demetrius Fenton on 04-29-2022 Estimated GFR (MDRD) Amer 57 mL/min >60 [facility] Comment on above: GFR Calc Estimated GFR (MDRD) Non-Af Amer 47 mL/min >60 [facility] Comment on above: Non- GFR Calc Platelets bldOrdered By: Pet er Suzy on 04-29-2022 Platelets (Bld) [#/Vol] 165 10*3/uL 150-450 [facility] Serum or plasma calcium roseanne urement (mass/volume)Ordered By: Demetrius Fenton on 04-29-2022 Calcium [Mass/Vol] 8.7 mg/dL 8.5-10.1 [facility] Serum or plasma creatinine m easurement (mass/volume)Ordered By: Demetrius Fenton on 04-29-2022 Creatinine [Mass/Vol] 1.61 mg/dL 0.70-1.30 [facility] Comment on above: The validity of the calculated GFR & GFRAA in patients over 70 years has not been determined. Clinical correlation is essential. Serum or plasma urea nitroge n measurement (mass/volume)Ordered By: Demetrius Fenton on 04-29-2022 Urea nitrogen [Mass/Vol] 30 mg/dL 7-18 [facility] Thin prep Papanicolaou smear with manual screeningOrdered By: Demetrius Fenton on 04-29-2022 Thin prep Papanicolaou smear with manual screening 6 5-15 [facility] Basophil percentageOrdered B y: Demetrius Fenton on 04-22-2022 Chloride [Moles/Vol] 103 mmol/L 98-107 [facility] Glucose [Mass/Vol] 154 mg/dL 74-106 [facility] Comment on above: Fasting Glucose resu lt greater than or equal to 126 mg/dL suggests DIABETES MELLITUS per A.D.A. criteria. Potassium [Moles/Vol] 4.9 mmol/L 3.5-5.1 [facility] Sodium [Moles/Vol] 136 mmol/L 136-145 [facility] Laboratory - Chemistry and C hemistry - challengeOrdered By: Demetrius Fenton on 04-22-2022 CO2 [Moles/Vol] 25.0 mmol/L 21.0-32.0 [facility] Urea nitrogen/Creatinine [Mass ratio] 24.3 mg/mg 10-20 [facility] No Panel InformationOrdered By: Demetrius Fenton on 04-22-2022 Estimated GFR (MDRD) Amer 69 mL/min >60 [facility] Comment on above: GFR Calc Estimated GFR (MDRD) Non-Af Amer 57 mL/min >60 [facility] Comment on above: Non- GFR Calc Serum or plasma calcium roseanne urement (mass/volume)Ordered By: Demetrius Fenton on 04-22-2022 Calcium [Mass/Vol] 9.0 mg/dL 8.5-10.1 [facility] Serum or plasma creatinine m easurement (mass/volume)Ordered By: Demetrius Fenton on 04-22-2022 Creatinine [Mass/Vol] 1.36 mg/dL 0.70-1.30 [facility] Comment on above: The validity of the calculated GFR & GFRAA in patients over 70 years has not been determined. Clinical correlation is essential. Serum or plasma urea nitroge n measurement (mass/volume)Ordered By: Demetrius Fenton on 04-22-2022 Urea nitrogen [Mass/Vol] 33 mg/dL 7-18 [facility] Thin prep Papanicolaou smear with manual screeningOrdered By: Demetrius Fenton on 04-22-2022 Thin prep Papanicolaou smear with manual screening 8 5-15 [facility] Basophil percentageOrdered B y: Gunnar Cummings on 02-17-2022 Chloride [Moles/Vol] 102 mmol/L 98-107 [facility] Glucose [Mass/Vol] 117 mg/dL 74-106 [facility] Comment on above: Fasting Glucose resu lt from 100 to 125 mg/dL suggests IMPAIRED HOMEOSTASIS per A.D.A. criteria. Potassium [Moles/Vol] 4.8 mmol/L 3.5-5.1 [facility] Sodium [Moles/Vol] 137 mmol/L 136-145 [facility] Laboratory - Chemistry and C hemistry - challengeOrdered By: Gunnar Cummings on 02-17-2022 CO2 [Moles/Vol] 28.0 mmol/L 21.0-32.0 [facility] Urea nitrogen/Creatinine [Mass ratio] 20.6 mg/mg 10-20 [facility] No Panel InformationOrdered By: Gunnar Cummings on 02-17-2022 Estimated GFR (MDRD) Amer 75 mL/min >60 [facility] Comment on above: GFR Calc Estimated GFR (MDRD) Non-Af Amer 62 mL/min >60 [facility] Comment on above: Non- GFR Calc Serum or plasma calcium roseanne urement (mass/volume)Ordered By: Gunnar Cummings on 02-17-2022 Calcium [Mass/Vol] 8.9 mg/dL 8.5-10.1 [facility] Serum or plasma creatinine m easurement (mass/volume)Ordered By: Gunnar Cummings on 02-17-2022 Creatinine [Mass/Vol] 1.26 mg/dL 0.70-1.30 [facility] Comment on above: The validity of the calculated GFR & GFRAA in patients over 70 years has not been determined. Clinical correlation is essential. Serum or plasma urea nitroge n measurement (mass/volume)Ordered By: Gunnar Cummings on 02-17-2022 Urea nitrogen [Mass/Vol] 26 mg/dL 7-18 [facility] Thin prep Papanicolaou smear with manual screeningOrdered By: Gunnar Cummings on 02-17-2022 Thin prep Papanicolaou smear with manual screening 7 5-15 [facility] Absolute lymphocyte countOrd ered By: Gunnar Cummings on 02-10-2022 Lymphocytes Auto (Unsp spec) [#/Vol] 3.53 10*3/uL 0.83-4.51 [facility] Basophil percentageOrdered B y: Gunnar Cummings on 02-10-2022 Basophils/100 WBC (Bld) 0.9 % 0-1 [facility] Bilirubin [Mass/Vol] 0.80 mg/dL 0.20-1.00 [facility] Comment on above: For patients on eltr ombopag therapy, use of Dimension [place] TBIL is not recommended. Eosinophils/100 WBC (Bld) 3.8 % 0-5 [facility] Neutrophils (Bld) [#/Vol] 3.4 10*3/uL 2.0-7.7 [facility] Neutrophils/100 WBC (Bld) 42.8 % 47-70 [facility] Protein [Mass/Vol] 6.6 g/dL 6.4-8.2 [facility] WBC (Bld) [#/Vol] 7.9 10*3/uL 4.4-11.0 [facility] Blood erythrocytes count (nu mber/volume)Ordered By: Gunnar Cummings on 02-10-2022 RBC (Bld) [#/Vol] 4.36 10*6/uL 4.6-6.2 [facility] Blood hemoglobin measurement (mass/volume)Ordered By: Gunnar Cummings on 02-10-2022 Hemoglobin (Bld) [Mass/Vol] 13.8 g/dL 13.0-16.5 [facility] Blood lymphocytes/100 leukoc ytesOrdered By: Gunnar Cummings on 02-10-2022 Lymphocytes/100 WBC (Bld) 44.5 % 19-41 [facility] Blood monocytes/100 leukocyt esOrdered By: Gunnar Cummings on 02-10-2022 Monocytes/100 WBC (Bld) 7.4 % 0-10 [facility] Blood platelet mean volumeOr dered By: Gunnar Cummings on 02-10-2022 Platelet mean volume (Bld) [Entitic vol] 11.2 fL 6.2-12.0 [facility] Determination of erythrocyte mean corpuscular volume (MCV)Ordered By: Gunnar Cummings on 02-10-2022 MCV (RBC) [Entitic vol] 92.4 fL 80-94 [facility] Direct bilirubinOrdered By: Gunnar Cummings on 02-10-2022 Bilirubin.direct [Mass/Vol] 0.12 mg/dL 0.00-0.30 [facility] Hematocrit Auto (Bld) [Volum e fraction]Ordered By: Gunnar Cummings on 02-10-2022 Hematocrit (Bld) [Volume fraction] 40.3 % 40-54 [facility] Laboratory - Chemistry and C hemistry - challengeOrdered By: Gunnar Cummings on 02-10-2022 ALP [Catalytic activity/Vol] 69 U/L 45-117 [facility] ALT [Catalytic activity/Vol] 26 U/L 16-61 [facility] Globulin (S) [Mass/Vol] 3.3 g/dL 2.2-4.2 [facility] Laboratory - Hematology and Cell countsOrdered By: Gunnar Cummings on 02-10-2022 Erythrocyte distribution width (RBC) [Entitic vol] 41.3 fL 35.1-43.9 [facility] Erythrocyte distribution width (RBC) [Ratio] 12.7 % 11.6-14.6 [facility] Immature granulocytes/100 WBC (Bld) 0.600 % 0.0-0.9 [facility] Comment on above: IG% - Immature Granu locytes (promyelocytes, myelocytes and metamyelocytes) > 1% indicates that a LEFT SHIFT is Present. MCH (RBC) [Entitic mass] 31.7 pg 27.0-32.0 [facility] Nucleated RBC/100 WBC (Bld) [Ratio] 0 % 0-5 [facility] MCHC Auto (RBC) [Mass/Vol]Or dered By: Gunnar Cummings on 02-10-2022 MCHC (RBC) [Mass/Vol] 34.2 g/dL 32-36 [facility] Platelets bldOrdered By: Ar Cummings on 02-10-2022 Platelets (Bld) [#/Vol] 165 10*3/uL 150-450 [facility] Serum or plasma albumin roseanne urement (mass/volume)Ordered By: Gunnar Cummings on 02-10-2022 Albumin [Mass/Vol] 3.3 g/dL 3.2-5.0 [facility] Thin prep Papanicolaou smear with manual screeningOrdered By: Gunnar Cummings on 02-10-2022 Thin prep Papanicolaou smear with manual screening 14 U/L 15-37 [facility] Basophil percentageon 2021 Chloride [Moles/Vol] 100 mmol/L 98-107 [facility] Work Phone: Glucose [Mass/Vol] 120 mg/dL 74-106 [facility] Work Phone: Comment on above: Fasting Glucose resu lt from 100 to 125 mg/dL suggests IMPAIRED HOMEOSTASIS per A.D.A. criteria. Potassium [Moles/Vol] 4.7 mmol/L 3.5-5.1 [facility] Work Phone: Sodium [Moles/Vol] 136 mmol/L 136-145 [facility] Work Phone: Laboratory - Chemistry and C hemistry - challengeon 01-17-2022 CO2 [Moles/Vol] 28.0 mmol/L 21.0-32.0 [facility] Work Phone: Urea nitrogen/Creatinine [Mass ratio] 19.3 mg/mg 10-20 [facility] Work Phone: No Panel Informationon 01-17 Estimated GFR (MDRD) Amer 80 mL/min >60 [facility] Work Phone: Comment on above: GFR Calc Estimated GFR (MDRD) Non-Af Amer 67 mL/min >60 [facility] Work Phone: Comment on above: Non- GFR Calc Serum or plasma calcium roseanne urement (mass/volume)on 01-17-2022 Calcium [Mass/Vol] 8.9 mg/dL 8.5-10.1 [facility] Work Phone: Serum or plasma creatinine m easurement (mass/volume)on 01-17-2022 Creatinine [Mass/Vol] 1.19 mg/dL 0.70-1.30 [facility] Work Phone: Comment on above: The validity of the calculated GFR & GFRAA in patients over 70 years has not been determined. Clinical correlation is essential. Serum or plasma urea nitroge n measurement (mass/volume)on 01-17-2022 Urea nitrogen [Mass/Vol] 23 mg/dL 7-18 [facility] Work Phone: Thin prep Papanicolaou smear with manual screeningon 01-17-2022 Thin prep Papanicolaou smear with manual screening 8 5-15 [facility] Work Phone: Basophil percentageon 2021 Chloride [Moles/Vol] 107 mmol/L 98-107 [facility] Work Phone: Glucose [Mass/Vol] 116 mg/dL 74-106 [facility] Work Phone: Comment on above: Fasting Glucose resu lt from 100 to 125 mg/dL suggests IMPAIRED HOMEOSTASIS per A.D.A. criteria. Potassium [Moles/Vol] 4.8 mmol/L 3.5-5.1 [facility] Work Phone: Sodium [Moles/Vol] 137 mmol/L 136-145 [facility] Work Phone: Laboratory - Chemistry and C hemistry - challengeon 11-17-2021 CO2 [Moles/Vol] 25.0 mmol/L 21.0-32.0 [facility] Work Phone: Urea nitrogen/Creatinine [Mass ratio] 22.6 mg/mg 10-20 [facility] Work Phone: No Panel Informationon 11-17 Estimated GFR (MDRD) Amer 77 mL/min >60 [facility] Work Phone: Comment on above: GFR Calc Estimated GFR (MDRD) Non-Af Amer 63 mL/min >60 [facility] Work Phone: Comment on above: Non- GFR Calc Serum or plasma calcium roseanne urement (mass/volume)on 11-17-2021 Calcium [Mass/Vol] 8.6 mg/dL 8.5-10.1 [facility] Work Phone: Serum or plasma creatinine m easurement (mass/volume)on 11-17-2021 Creatinine [Mass/Vol] 1.24 mg/dL 0.70-1.30 [facility] Work Phone: Comment on above: The validity of the calculated GFR & GFRAA in patients over 70 years has not been determined. Clinical correlation is essential. Serum or plasma urea nitroge n measurement (mass/volume)on 11-17-2021 Urea nitrogen [Mass/Vol] 28 mg/dL 7-18 [facility] Work Phone: Thin prep Papanicolaou smear with manual screeningon 11-17-2021 Thin prep Papanicolaou smear with manual screening 5 15 [facility] Work Phone: [facility] 10-03-2021 [facility] HNO ID: [id number] Author: RT Traci(R) Service: Radiology Author Type: [...] RT Traci(R) October 02, 2021 11:38 PM [facility] HNO ID: [id number] Author: ALICIA Bucio Service: Radiology Author Type: [...] PERIPHERAL IV DATA: Not applicable SIGNED BY: Mirella Cervantes, CT October 02, 2021 11:[address] [facility] [address] BRAIN WO IVCONon 10-04-19 CT BRAIN WO IVCON * * *Final Report* * * DATE OF EXAM: Oct 02 2021 11:18PM [facility] - CT BRAIN WO IVCON / PROCEDURE REASON: Head trauma, minor (Age >= 65y) * * * * Physician Interpretation * * * * EXAMINATION: CT BRAIN WO IVCON, CT CERVICAL SPINE WO IVCON CLINICAL HISTORY: Head trauma, minor (Age >= 65y) (accession [id number]), Spine fracture, cervical, traumatic (accession [id number]) TECHNIQUE: CT head: Serial axial images without [...] anterior to C1. Multilevel facet degenerative changes. Senior Software Qa Engineer (topogram) images: No other significant finding. IMPRESSION: No evidence of acute intracranial injury or calvarial fracture. Unchanged chronic intracranial findings as described. No evidence of acute cervical spine fracture or traumatic malalignment. Cervical spine degenerative changes as described. Manager Of School: [facility] SYSTEMFrancisco Javier Transcribe Date/Time: Oct 02 2021 11:48P Dictated by : YUNIER URIAS MD This examination was interpreted and the report reviewed and electronically signed by: YUNIER URIAS MD on Oct 02 2021 11:58PM EST [id number] [facility] CT CERVICAL SPINE WO IVCONon 10-03-2021 CT CERVICAL SPINE WO IVCON * * *Final Report* * * DATE OF EXAM: Oct 02 2021 11:18PM [facility] [address] - CT CERVICAL SPINE WO IVCON / PROCEDURE REASON: Spine fracture, cervical, traumatic * * * * Physician Interpretation * * * * EXAMINATION: CT BRAIN WO IVCON, CT CERVICAL SPINE WO IVCON CLINICAL HISTORY: Head trauma, minor (Age >= 65y) (accession [id number]), Spine fracture, cervical, traumatic (accession [id number]) TECHNIQUE: CT head: Serial axial images without [...] anterior to C1. Multilevel facet degenerative changes. Senior Software Qa Engineer (topogram) images: No other significant finding. IMPRESSION: No evidence of acute intracranial injury or calvarial fracture. Unchanged chronic intracranial findings as described. No evidence of acute cervical spine fracture or traumatic malalignment. Cervical spine degenerative changes as described. Manager Of School: [employer] Date/Time: Oct 02 2021 11:48P Dictated by : YUNIER URIAS MD This examination was interpreted and the report reviewed and electronically signed by: YUNIER URIAS MD on Oct 02 2021 11:58PM EST [id number] [facility] ED PROV NOTEon 10-03-2021 ED PROV NOTE HNO ID: [id number] Author: Tresa Minor PA-C Service: Emergency Medicine Author Type: Physician Top Distribution Executive Type: ED Provider Notes Filed: 10/03/2021 1:03 AM Note Text: ED Provider Note Patient Name: Moises Madrid : 1960 SERVICE DATE: 10/02/21 History Patient presents with: Fall: fell forward off the toilet Pt is a 60 yo male with PMHx of TBI, chronic daily DIGGS, HTN, right sided hemiplegia, HLD, cellulitis who presents to the ED with a chief complaint of "fall with head injury and neck pain." Patient states that he went to go [...] History provided by: Patient and medical records real estate manager used: No PAST MEDICAL HISTORY Diagnosis Date [...] Psychiatric/Behavioral: Negative for agitation. Physical Exam Vitals [10/02/21 2247] BP Pulse Temp Temp src Resp SpO2 [...] further (more content not included)... Normal [facility] XR ANKLE 3V AP/LAT/OBL LTon 10-03-2021 [...] history should include: Left lower extremity pain. Manager Of School: [employer] Date/Time: Oct 14 2021 8:43A Dictated by : BAR CASEY MD This examination was interpreted and the report reviewed and electronically signed by: BAR CASEY MD on Oct 03 2021 12:09AM EST This document has been addended by: BAR CASEY MD on Oct 14 2021 8:44AM EST [id number] [facility] XR KNEE 4V AP/LAT/OBLS LTon 10-03-2021 [...] history should include: Left lower extremity pain. Manager Of School: [employer] Transcribe Date/Time: Oct 14 2021 8:43A Dictated by : BAR CASEY MD This examination was interpreted and the report reviewed and electronically signed by: BAR CASEY MD on Oct 03 2021 12:09AM EST This document has been addended by: BAR CASEY MD on Oct 14 2021 8:44AM EST [id number] [facility] XR PELVIS 1V APon 10-03-2021 XR [...] history should include: Left lower extremity pain. Manager Of School: [employer] Date/Time: Oct 14 2021 8:43A Dictated by : BAR CASEY MD This examination was interpreted and the report reviewed and electronically signed by: BAR CASEY MD on Oct 03 2021 12:09AM EST This document has been addended by: BAR CASEY MD on Oct 14 2021 8:44AM EST [id number] [facility] XR TIBIA FIBULA 2V AP/LAT LT [...] history should include: Left lower extremity pain. Manager Of School: [employer] Trans[employer] Date/Time: Oct 14 2021 8:43A Dictated by : BAR CASEY MD This examination was interpreted and the report reviewed and electronically signed by: BAR CASEY MD on Oct 03 2021 12:09AM EST This document has been addended by: BAR CASEY MD on Oct 14 2021 8:44AM EST [id number] Normal [facility] Basophil percentageon 2021 Cholesterol [Mass/Vol] 137 mg/dL <200 [facility] Work Phone: Comment on above: <200 mg/dL Desirable 200-240 mg/dL Borderline >240 mg/dL High Risk Triglyceride [Mass/Vol] 116 mg/dL <199 [facility] Work Phone: [phone] Comment on above: The drugs N-Acetylcy steine and Metamizole may falsely depress this assay.Serum Triglycerides Reference Interval Normal <150 mg/dL Borderline high 150 - 199 mg/dL High 200 - 499 mg/dL Very High > or = 500 mg/dL WBC (Bld) [#/Vol] 9.3 10*3/uL 4.4-11.0 [facility] Work Phone: [phone] Blood erythrocytes count (nu mber/volume)on 09-27-2021 RBC (Bld) [#/Vol] 4.63 10*6/uL 4.6-6.2 [facility] Work Phone: [phone] Blood hemoglobin measurement (mass/volume)on 09-27-2021 Hemoglobin (Bld) [Mass/Vol] 14.7 g/dL 13.0-16.5 [facility] Work Phone: [phone] Blood platelet mean volumeon 09-27-2021 Platelet mean volume (Bld) [Entitic vol] 11.7 fL 6.2-12.0 [facility] Work Phone: [phone] Determination of erythrocyte mean corpuscular volume (MCV)on 09-27-2021 MCV (RBC) [Entitic vol] 94.2 fL 80-94 [facility] Work Phone: [phone] Hematocrit Auto (Bld) [Volum e fraction]on 09-27-2021 Hematocrit (Bld) [Volume fraction] 43.6 % 40-54 [facility] Work Phone: [phone] Laboratory - Hematology and Cell countson 09-27-2021 Erythrocyte distribution width (RBC) [Entitic vol] 43.9 fL 35.1-43.9 [facility] Work Phone: [phone] Erythrocyte distribution width (RBC) [Ratio] 12.9 % 11.6-14.6 [facility] Work Phone: [phone] MCH (RBC) [Entitic mass] 31.7 pg 27.0-32.0 [facility] Work Phone: MCHC Auto (RBC) [Mass/Vol]on 09-27-2021 MCHC (RBC) [Mass/Vol] 33.7 g/dL 32-36 [facility] Work Phone: No Panel Informationon 09-27 Valproic Acid (Depakene) Level 56 ug/mL 50-100 [facility] Work Phone: [phone] Platelets bldon 09-27-2021 Platelets (Bld) [#/Vol] 201 10*3/uL 150-450 [facility] Work Phone: [phone] Serum or plasma cholesterol in HDL measurement (mass/volume)on 09-27-2021 Cholesterol in HDL [Mass/Vol] 47 mg/dL >40 [facility] Work Phone: Comment on above: The drugs N-Acetylcy steine and Metamizole may falsely depress this assay. Reference Range HDL <40 mg/dL Low HDL Cholesterol HDL >or= 60 mg/dL High HDL Cholesterol Serum or plasma cholesterol in VLDL measurement (mass/volume)on 09-27-2021 Cholesterol in VLDL [Mass/Vol] 23 mg/dL 5-40 [facility] Work Phone: [phone] Serum or plasma low density lipoprotein (LDL) cholesterol measurement (mass/volume)on 09-27-2021 Cholesterol in LDL [Mass/Vol] 67 mg/dL 0-130 [facility] Work Phone: Basophil percentageon 2021 Chloride [Moles/Vol] 105 mmol/L 98-[address] [facility] [address] [facility] Work Phone: [phone] Glucose [Mass/Vol] 125 mg/dL 74-106 [facility] Work Phone: [phone] Comment on above: Fasting Glucose resu lt from 100 to 125 mg/dL suggests IMPAIRED HOMEOSTASIS per A.D.A. criteria. Potassium [Moles/Vol] 4.6 mmol/L 3.5-5.1 [facility] Work Phone: [phone] Sodium [Moles/Vol] 138 mmol/L 136-145 [facility] Work Phone: Laboratory - Chemistry and C hemistry - challengeon 09-17-2021 CO2 [Moles/Vol] 28.0 mmol/L 21.0-32.0 [facility] Work Phone: Urea nitrogen/Creatinine [Mass ratio] 19.3 mg/mg 10-20 [facility] Work Phone: No Panel Informationon 09-17 Estimated GFR (MDRD) Amer 81 mL/min >60 [facility] Work Phone: Comment on above: GFR Calc Estimated GFR (MDRD) Non-Af Amer 67 mL/min >60 [facility] Work Phone: Comment on above: Non- GFR Calc Vitamin D 25-Hydroxy 65.4 ng/mL [facility] Work Phone: Comment on above: Vitamin D 25(OH) Sta tus Range Deficiency <20 ng/mL (50nmol/L) Insufficiency 20 - 30 ng/mL (50 - 75 nmol/L) Sufficiency 30 - 100 ng/mL (75 - 250 nmol/L) Toxicity >100 ng/mL (>250 nmol/L) Serum or plasma calcium roseanne urement (mass/volume)on 09-17-2021 Calcium [Mass/Vol] 9.2 mg/dL 8.5-10.1 [facility] Work Phone: Serum or plasma creatinine m easurement (mass/volume)on 09-17-2021 Creatinine [Mass/Vol] 1.19 mg/dL 0.70-1.30 [facility] Work Phone: Comment on above: The validity of the calculated GFR & GFRAA in patients over 70 years has not been determined. Clinical correlation is essential. Serum or plasma urea nitroge n measurement (mass/volume)on 09-17-2021 Urea nitrogen [Mass/Vol] 23 mg/dL 7-18 [facility] Work Phone: Thin prep Papanicolaou smear with manual screeningon 09-17-2021 Thin prep Papanicolaou smear with manual screening 5 5-15 [facility] Work Phone: Basophil percentageon 2021 Chloride [Moles/Vol] 105 mmol/L 98-107 [facility] Work Phone: Glucose [Mass/Vol] 101 mg/dL 74-106 [facility] Work Phone: Comment on above: Fasting Glucose resu lt from 100 to 125 mg/dL suggests IMPAIRED HOMEOSTASIS per A.D.A. criteria. Potassium [Moles/Vol] 3.5 mmol/L 3.5-5.1 [facility] Work Phone: Sodium [Moles/Vol] 142 mmol/L 136-145 [facility] Work Phone: Laboratory - Chemistry and C hemistry - challengeon 06-08-2021 CO2 [Moles/Vol] 30.0 mmol/L 21.0-32.0 [facility] Work Phone: Urea nitrogen/Creatinine [Mass ratio] 10.1 mg/mg 10-20 [facility] Work Phone: No Panel Informationon 06-08 Estimated GFR (MDRD) Amer 112 mL/min >60 [facility] Work Phone: Comment on above: GFR Calc Estimated GFR (MDRD) Non-Af Amer 93 mL/min >60 [facility] Work Phone: Comment on above: Non- GFR Calc Serum or plasma calcium roseanne urement (mass/volume)on 06-08-2021 Calcium [Mass/Vol] 8.7 mg/dL 8.5-10.1 [facility] Work Phone: Serum or plasma creatinine m easurement (mass/volume)on 06-08-2021 Creatinine [Mass/Vol] 0.89 mg/dL 0.70-1.30 [facility] Work Phone: Comment on above: The validity of the calculated GFR & GFRAA in patients over 70 years has not been determined. Clinical correlation is essential. Serum or plasma urea nitroge n measurement (mass/volume)on 06-08-2021 Urea nitrogen [Mass/Vol] 9 mg/dL 7-18 [facility] Work Phone: Thin prep Papanicolaou smear with manual screeningon 06-08-2021 Thin prep Papanicolaou smear with manual screening 7 5-15 [facility] Work Phone: [facility] 05-25-2021 [facility] HNO ID: [id number] Author: RT Traic(R) Service: Radiology Author Type: Technologist Type: Allied [...] RT Traci(R) May 25, 2021 4:26 AM [facility] HNO ID: [id number] Author: RT Allie(R) Service: Radiology Author Type: [...] RT Allie(R) May 25, 2021 4:[address] [facility] [address] BRAIN WO IVCONon 05-25-19 CT BRAIN WO IVCON * * *Final Report* * * DATE OF EXAM: May 25 2021 4:15AM [facility] - CT BRAIN WO IVCON / [...] base and imaged soft tissues are unremarkable. Senior Software Qa Engineer (topogram) images: No additional findings. IMPRESSION: No acute intracranial abnormality. Manager Of School: [employer] Trans[employer] Date/Time: May 25 2021 4:18A Dictated by : YOGI ERVIN MD This examination was interpreted and the report reviewed and electronically signed by: YOGI ERVIN MD on May 25 2021 4:26AM EST [id number] [facility] ED NOTEon 05-25-2021 ED NOTE HNO ID: [id number] Author: Augusto Pham RN Service: Nursing Author Type: Registered Nurse Type: ED Notes Filed: 05/25/2021 7:20 AM Note Text: Report called to SO Gutierrez at [facility] at this time. Patient BP was improved with manual readings at time of discharge. Discussed medication administration in ED and the imaging studies that were completed. Patient was in stable condition at time of d/c. [facility] ED NOTE HNO ID: [id number] Author: Augusto Pham RN Service: Nursing Author Type: Registered Nurse Type: ED Notes Filed: 05/25/2021 4:06 AM Note Text: Patient presents to ED with CC from nursing facility of hypertension and headache. 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 Patient states his only pain is in his R knee but that he does not remember if he hit his head. He also notes that he commonly has headaches ever since his TBI. SBP > [address] on [address] ED[address] Dr[address] Baig at bedside. [facility] ED NOTE HNO ID: [id number] Author: Augusto Pham RN Service: ? Author Type: Registered Nurse Type: ED Notes Filed: 05/25/2021 3:48 AM Note Text: Bed: ED-05 Expected date: 05/25/21 Expected time: 3:27 AM Means of arrival: [facility]EMS Comments: [facility] ED PROV NOTEon 05-25-2021 ED PROV NOTE HNO ID: [id number] Author: Toro Baig MD Service: Emergency Medicine [...] accident - Depression Suicide attempts - Hemiparesis ([facility]) right side - HTN (hypertension) - Hyperlipidemia - Insomnia - Memory loss - Neuropathy - TBI (traumatic brain injury) ([facility]) [address] accident PAST SURGICAL HISTORY Procedure [...] AP/LAT/OBLS RIGHT Final Result IMPRESSION: Mild DJD Manager Of School: [facility] Transcribe Date/Time: May 25 2021 4:32A Dictated by : JUSTINA MEIER MD This examination was interpreted and the report reviewed and electronically signed by: JUSTINA MEIER MD on May 25 2021 4:33AM EST CT BRAIN WO IVCON Final Result IMPRESSION: No acute intracranial abnormality. Manager Of School: [facility] Transcribe Date/Time: May 25 2021 4:18A [...] Plan is to discharge patient back to care home. The attending who evaluated and managed this patient was Toro Baig (more content not included)... Normal [facility] XR KNEE 4V AP/LAT/OBLS RTon 05-25-2021 [...] compartments. No joint effusion. IMPRESSION: Mild DJD Manager Of School: [employer] Transcribe Date/Time: May 25 2021 4:32A Dictated by : JUSTINA MEIER MD This examination was interpreted and the report reviewed and electronically signed by: JUSTINA MEIER MD on May 25 2021 4:33AM EST [id number] [facility] VL PVR Arterial Doppler Lwr w/o Exerciseon 05-21-2021 VL PVR Arterial Doppler Lwr w/o Exercise Patient Name: [id number] Ul[facility]ound ACCESSION EXAM DATE/TIME PROCEDURE ORDERING PROVIDER [id number] 05/21/2021 15:08 EST VL PVR Arterial Doppler LEONARDO OSPINA DOROTHY Lwr w/o Exercise CPT code 10912 Reason For Exam (VL PVR Arterial Doppler Lwr w/o Exercise) PVD with ulcerations Report [facility] -- Multilevel Lower Extremity Arterial Evaluation Report Patient Julius : 1960 Study 05/21/2021 Name: Moises (60yrs) Date: Age: 60 Account: [id number] Gender: M Loc: BP: Ordering Physician: Lorie Ospina Manager Float: Kenny Mcdonnell RVT Interpreting Physician: Brady Bañuelos MD -- Location: [facility] -- Indications: PVD with ulcer. -- [...] supine position. Images were obtained using a Vasculab vascular ultrasound machine. -- Arterial pressure indices: [...] BRADY BAÑUELOS Cardiovascular ACCESSION EXAM DATE/TIME PROCEDURE [id number] 05/21/2021 15:08 EST VL PVR Arterial Doppler Lwr w/o Exercise CPT code 12327 Reason For Exam (VL PVR Arterial Doppler Lwr w/o Exercise) PVD with ulcerations Report [facility] -- Multilevel Lower Extremity Arterial Evaluation Report Patient Julius : 1960 Study 05/21/2021 Name: Moises (60yrs) Date: Age: 60 Account: [id number] Gender: M Loc: BP: Cardiovascular Report Ordering Physician: Lorie Ospina Manager Float: Kenny Mcdonnell RVT Interpreting Physician: Brady Bañuelos MD -- Location: [facility] -- Indications: PVD with ulcer. -- [...] laboratory. Pr (more content not included)... Normal [facility] Basophil percentageon 2020 Cholesterol [Mass/Vol] 178 mg/dL <200 Wo [facility] Work Phone: Comment on above: <200 mg/dL Desirable 200-240 mg/dL Borderline >240 mg/dL High Risk Triglyceride [Mass/Vol] 166 mg/dL [facility] Work Phone: Comment on above: The drugs N-Acetylcy steine and Metamizole may falsely depress this assay.Serum Triglycerides Reference Interval Normal <150 mg/dL Borderline high 150 - 199 mg/dL High 200 - 499 mg/dL Very High > or = 500 mg/dL Serum or plasma cholesterol in HDL measurement (mass/volume)on 04-06-2021 Cholesterol in HDL [Mass/Vol] 38 mg/dL [facility] Work Phone: Comment on above: The drugs N-Acetylcy steine and Metamizole may falsely depress this assay. Reference Range HDL <40 mg/dL Low HDL Cholesterol HDL >or= 60 mg/dL High HDL Cholesterol Serum or plasma cholesterol in VLDL measurement (mass/volume)on 04-06-2021 Cholesterol in VLDL [Mass/Vol] 33 mg/dL 5-40 [facility] Work Phone: Serum or plasma low density lipoprotein (LDL) cholesterol measurement (mass/volume)on 04-06-2021 Cholesterol in LDL [Mass/Vol] 107 mg/dL 0-130 [facility] Work Phone: CT Cervical Spine WO Sergio shamar 06-26-2020 Patient Name: MOISES VERONICA Computed Tomography ACCESSION EXAM DATE/TIME PROCEDURE ORDERING PROVIDER [id number] 06/26/2020 18:[address] Spine Cervical w/o LOKI HERNANDEZ Contrast CPT code 18277 Reason For Exam (CT Spine Cervical w/o [...] Phone: [facility], [facility] Incoming Radiology Results From [facility] - 06/26/2020 6:22 PM EDT Patient Name: MOISES MADRID Computed Tomography ACCESSION EXAM DATE/TIME PROCEDURE ORDERING PROVIDER [id number] 06/26/2020 18:[address] Spine Cervical w/o LOKI HERNANDEZ Contrast CPT code 54712 Reason For Exam (CT Spine Cervical w/o [...] WO Contraston 2020 Patient [facility]: [id number] Computed Tomography ACCESSION EXAM DATE/TIME PROCEDURE ORDERING PROVIDER [id number] 06/26/2020 18:[address] Head or Brain w/o OLKI HERNANDEZ Contrast CPT code 95065 Reason For Exam (CT Head or Brain [...] Phone: [facility], [facility] Incoming Radiology Results From [facility] - 06/26/2020 6:22 PM EDT Patient Name: MOISES MADRID Computed Tomography ACCESSION EXAM DATE/TIME PROCEDURE ORDERING PROVIDER [id number] 06/26/2020 18:[address] Head or Brain w/o LOKI HERNANDEZ Contrast CPT code 58007 Reason For Exam (CT Head or Brain [...] and Time: 06/26/2020 6:22 [facility] Work Phone: Lac Repairon 06-26-2020 Demetria Matthew [...] bodies/material removed: no Skin repair: Repair method: [place] Number of rashida: 7 Approximation: Approximation: Close Post-procedure details: Dressing: Bulky dressing and antibiotic ointment [facility] Work Phone: Basic Metabolic Panelon 02-08 Anion gap [Moles/Vol] 6 mmol/L [facility], [place] Calcium [Mass/Vol] 9.1 mg/dL 8.4 - 10. 4 mg/dL [place], [place] Chloride [Moles/Vol] 105 mmol/L 98 - 10 7 mmol/L [place] CO2 [Moles/Vol] 28 mmol/L 22 - 30 mmol/L [place] Creatinine [Mass/Vol] 0.97 mg/dL 0.52 - 1.25 mg/dL [place] EGFR IF NonAfrican Puerto [place]ican 86.2 mL/min >60 [place] Comment on above: KDIGO guidelines pro [...] MDRD (S/P/Bld) [Vol rate/Area] mL/min/{1.73_m2} >60 mL/min [place] Glucose [Mass/Vol] 113 mg/dL High 70 - 100 mg/dL [place] Interpretation and review of laboratory results Abnormal [place] Potassium [Moles/Vol] 3.5 mmol/L 3.5 - 5.1 mmol/L [place] Sodium [Moles/Vol] 139 mmol/L 135 - 145 mmol/L [place] Urea nitrogen [Mass/Vol] 14 mg/dL 7 - 20 mg/dL [place] Test Performed by [facility], [facility] [address] , [address] Head WO Contraston 2019 Patient Name: MOISES VERONICA ---CT--- Exam Date/Time 02/19/2020 21:24:[address] Head or Brain w/o Contrast Ordering Physician MELLY LYLES Accession Number [id number] CPT4 Codes 55800 () Reason For Exam hypertensive crisis, frontal [...] MALAY Transcribed Date and Time: 02/19/2020 9:24 [place], [place] Alexys, [facility] Incoming Radiology Results From [facility] - 02/19/2020 9:25 PM EST Patient Name: MOISES MADRID ---CT--- Exam Date/Time 02/19/2020 21:24:[address] Head or Brain w/o Contrast Ordering Physician MELLY LYLES Accession Number [id number] CPT4 Codes 97479 () Reason For Exam hypertensive crisis, frontal [...] MALAY Transcribed Date and Time: 02/19/2020 9:24 [place] Hemogram (CBC)on 02-19-2020 Erythrocyte distribution width (RBC) [Ratio] 13.8 % 11.5 - 14.5 % [place] Hematocrit (Bld) [Volume fraction] 39.9 % Low 40 - 52 % [place] Hemoglobin (Bld) [Mass/Vol] 13.8 g/dL 13 - 18 g/dL [place] Interpretation and review of laboratory results Abnormal [place] MCH (RBC) [Entitic mass] 30.2 pg 26 - 34 pg [place] MCHC (RBC) [Mass/Vol] 34.5 % 32 - 36 % [place], [place] MCV (RBC) [Entitic vol] 87.5 fL 80 - 98 fL [place], [place] Platelet mean volume (Bld) [Entitic vol] 8.9 fL 7.4 - 10.4 fL [place] Platelets (Bld) [#/Vol] 138 10*3/uL Low 140 - 440 10*3/uL [place] RBC (Bld) [#/Vol] 4.56 10*6/uL 4.4 - 5.9 10*6/uL [place] WBC (Bld) [#/Vol] 7.5 10*3/uL 3.6 - 10.7 10*3/uL [place] Test Performed by [facility], [address] Troponin x1on 02-19-2020 Troponin I.cardiac [Mass/Vol] ng/mL 0 - 0.034 ng/mL [place], [place] Comment on above: . Test Performed by [facility], [address] Comp Metabolic Panelon 04-05 ALP [Catalytic activity/Vol] 59 U/L Normal 38-126 [facility] Comment on above: Performed By: #### C MP3, HEMOG, LACT3 #### [facility] [address] [place] [address] ALT [Catalytic activity/Vol] 52 U/L Normal 13-69 [facility] Comment on above: Performed By: #### C MP3, HEMOG, LACT3 #### [facility] [address] [place] [address] AST [Catalytic activity/Vol] 41 U/L Normal 15-46 [facility] Comment on above: Performed By: #### C MP3, HEMOG, LACT3 #### [facility] [address] [place] [address] Calcium [Mass/Vol] 8.5 mg/dL Normal 8.4-10.4 [facility] Comment on above: Performed By: #### C MP3, HEMOG, LACT3 #### [facility] [address] [place] [address] Glucose [Mass/Vol] 127 mg/dL High 70-100 [facility] Comment on above: Performed By: #### C MP3, HEMOG, LACT3 #### [address] [place] [address] Urea nitrogen [Mass/Vol] 13 mg/dL Normal 7-20 [facility] Comment on above: Performed By: #### C MP3, HEMOG, LACT3 #### [address] [place] [address] Anion gap [Moles/Vol] 8 Normal [facility] Comment on above: Performed By: #### C MP3, HEMOG, LACT3 #### [address] [place] [address] Bilirubin [Mass/Vol] 0.5 mg/dL Normal 0.2-1.3 [facility] Comment on above: Performed By: #### C MP3, HEMOG, LACT3 #### [id number] [place] [address] CO2 [Moles/Vol] 29 mmol/L Normal 22-30 [facility] Comment on above: Performed By: #### C MP3, HEMOG, LACT3 #### [address] [place] [address] Creatinine [Mass/Vol] 0.83 mg/dL Normal 0.52-1.25 [facility] Comment on above: Performed By: #### C MP3, HEMOG, LACT3 #### [id number] [place] [address] GFR/1.73 sq M predicted among blacks MDRD (S/P/Bld) [Vol rate/Area] mL/min/{1.73_m2} Normal >60 [facility] Comment on above: Performed By: #### C MP3, HEMOG, LACT3 #### [address] [address] GFR/1.73 sq M predicted among non-blacks MDRD (S/P/Bld) [Vol rate/Area] mL/min/{1.73_m2} Normal >60 [facility] Comment on above: Result Comment: Sour ce- MDRD equation with creatinine calibration to IDMS(NKDEP) eGFR not recommended for drug dose adjustment Performed By: #### C MP3, HEMOG, LACT3 #### [address] [address] Protein [Mass/Vol] 6.0 g/dL Low 6.3-8.2 [facility] Comment on above: Performed By: #### C MP3, HEMOG, LACT3 #### [address] [address] Potassium [Moles/Vol] 3.2 mmol/L Low 3.5-5.1 [facility] Comment on above: Performed By: #### C MP3, HEMOG, LACT3 #### [address] [address] Sodium [Moles/Vol] 138 mmol/L Normal 135-145 [facility] Comment on above: Performed By: #### C MP3, HEMOG, LACT3 #### [address] [place] [address] Albumin [Mass/Vol] 3.6 g/dL Normal 3.5-5.0 [facility] Comment on above: Performed By: #### C MP3, HEMOG, LACT3 #### [address] [place] [address] Chloride [Moles/Vol] 102 mmol/L Normal 98-107 [facility] Comment on above: Performed By: #### C MP3, HEMOG, LACT3 #### [address] [place] [address] Comprehensive Metabolic Pane lOrdered By: Jesús Ellis on 04-05-2019 Albumin [Mass/Vol] 3.6 g/dL 3.5 - 5 g/dL [facility] Work Phone: [phone] ALP [Catalytic activity/Vol] 59 U/L 38 - 126 U/L [facility] Work Phone: [phone] ALT [Catalytic activity/Vol] 52 U/L 13 - 69 U/L [facility] Work Phone: [phone] Anion gap [Moles/Vol] 8 mmol/L [facility] Work Phone: [phone] [Catalytic activity/Vol] 41 U/L 15 - 46 U/L [facility] Work Phone: [phone] Bilirubin [Mass/Vol] 0.5 mg/dL 0.2 - 1 .3 mg/dL [facility] Work Phone: [phone] Calcium [Mass/Vol] 8.5 mg/dL 8.4 - 10. 4 mg/dL [facility] Work Phone: [phone] Chloride [Moles/Vol] 102 mmol/L 98 - 10 7 mmol/L [facility] Work Phone: [phone] CO2 [Moles/Vol] 29 mmol/L 22 - 30 mmol/L [facility] Work Phone: [phone] Creatinine [Mass/Vol] 0.83 mg/dL 0.52 - 1.25 mg/dL [facility] Work Phone: [phone] EGFR IF NonAfrican Puerto Rican >60.0 >60 mL/min [facility] Work Phone: [phone] Comment on above: Source- MDRD equatio n with creatinine calibration to IDMS(NKDEP) eGFR not recommended for drug dose adjustment GFR/1.73 sq M.predicted among blacks MDRD (S/P/Bld) [Vol rate/Area] mL/min/{1.73_m2} >60 mL/min [facility] Work Phone: [phone] Glucose [Mass/Vol] 127 mg/dL High 70 - 100 mg/dL [facility] Work Phone: [phone] Interpretation and review of laboratory results Abnormal [facility] Work Phone: [phone] Potassium [Moles/Vol] 3.2 mmol/L Low 3.5 - 5.1 mmol/L [facility] Work Phone: [phone] Protein [Mass/Vol] 6.0 g/dL Low 6.3 - 8.2 g/dL [facility] Work Phone: Sodium [Moles/Vol] 138 mmol/L 135 - 145 mmol/L [facility] Work Phone: Urea nitrogen [Mass/Vol] 13 mg/dL 7 - 20 mg/dL [facility] Work Phone: Test Performed by [facility], [address] [place] [address] [facility] Work Phone: Hemogramon 04-05-2019 Erythrocyte distribution width (RBC) [Ratio] 13.3 % Normal 11.5-14.5 [facility] Comment on above: Performed By: #### C MP3, HEMOG, LACT3 #### [address] [address] Hematocrit (Bld) [Volume fraction] 43.7 % Normal 40.0-52.0 [facility] Comment on above: Performed By: #### C MP3, HEMOG, LACT3 #### [address] [address] Hemoglobin (Bld) [Mass/Vol] 14.7 g/dL Normal 13.0-18.0 [facility] Comment on above: Performed By: #### C MP3, HEMOG, LACT3 #### [address] [address] MCH (RBC) [Entitic mass] 30.1 pg Normal 26.0-34.0 [facility] Comment on above: Performed By: #### C MP3, HEMOG, LACT3 #### [address] [address] MCHC (RBC) [Mass/Vol] 33.7 % Normal 32.0-36.0 [facility] Comment on above: Performed By: #### C MP3, HEMOG, LACT3 #### [address] [address] MCV (RBC) [Entitic vol] 89.4 fL Normal 80.0-98.0 [facility] Comment on above: Performed By: #### C MP3, HEMOG, LACT3 #### [address] [address] Platelet mean volume (Bld) [Entitic vol] 8.6 fL Normal 7.4-10.4 [facility] Comment on above: Performed By: #### C MP3, HEMOG, LACT3 #### [address] [address] Platelets (Bld) [#/Vol] 166 10*3/uL Normal 140-440 [facility] Comment on above: Performed By: #### C MP3, HEMOG, LACT3 #### [address] [address] RBC (Bld) [#/Vol] 4.89 10*6/uL Normal 4.40-5.90 [facility] Comment on above: Performed By: #### C MP3, HEMOG, LACT3 #### [address] [address] WBC (Bld) [#/Vol] 7.7 10*3/uL Normal 3.6-10.7 [facility] Comment on above: Performed By: #### C MP3, HEMOG, LACT3 #### [address] [address] Hemogram (CBC)Ordered By: Luz Ellis on 04-05-2019 Erythrocyte distribution width (RBC) [Ratio] 13.3 % 11.5 - 14.5 % [facility] Work Phone: [phone] Hematocrit (Bld) [Volume fraction] 43.7 % 40 - 52 % [facility] Work Phone: [phone] Hemoglobin (Bld) [Mass/Vol] 14.7 g/dL 13 - 18 g/dL [facility] Work Phone: [phone] MCH (RBC) [Entitic mass] 30.1 pg 26 - 34 pg [facility] Work Phone: [phone] MCHC 33.7 % 32 - 36 % [facility] Work Phone: [phone] MCV (RBC) [Entitic vol] 89.4 fL 80 - 98 fL [facility] Work Phone: [phone] Platelet mean volume (Bld) [Entitic vol] 8.6 fL 7.4 - 10.4 fL [employer] Work Phone: Platelets (Bld) [#/Vol] 166 10*3/uL 140 - 440 10*3/uL [employer] Work Phone: [phone] RBC (Bld) [#/Vol] 4.89 10*6/uL 4.4 - 5.9 10*6/uL [employer] Work Phone: WBC (Bld) [#/Vol] 7.7 10*3/uL 3.6 - 10.7 10*3/uL [employer] Work Phone: [phone] Test Performed by [facility], [address] [place] [address] [employer] Work Phone: [phone] Lactic Acidon 04-05-2019 Lactate [Moles/Vol] 2.6 mmol/L Critically high 0.7-2.0 [facility] Comment on above: Performed By: #### C MP3, HEMOG, LACT3 #### [facility] [place] [address] Lactic Acid, PlasmaOrdered B y: Jesús Leungbryant on 04-05-2019 Interpretation and review of laboratory results Abnormal [facility] Work Phone: Lactate [Moles/Vol] 2.6 mmol/L Critically high 0.7 - 2 mmol/L [facility] Work Phone: Test Performed by [facility], [address] [place] [address] [employer] Work Phone: Vital Signs Date Time Vital Sign Value Performing Clinician Facility 07-08-2024 11:55-0400 Body height 182.9 cm Chhaya Saldana MD Work Phone: [facility] 07-08-2024 11:55-0400 Body mass index (BMI) [Ratio] 31.99 kg/m2 Chhaya Saldana MD Work Phone: [facility] 07-08-2024 11:55-0400 Body weight 107 kg Chhaya Saldana MD Work Phone: [facility] 03-31-2025 11:55-0400 Diastolic blood pressure 75 mm[Hg] Chhaya Saldana MD Work Phone: [facility] 07-08-2024 11:55-0400 Heart rate 83 /min Chhaya Saldana MD Work Phone: [facility] 07-08-2024 11:55-0400 SaO2% (BldA) [Mass fraction] 97 % Chhaya Saldana MD Work Phone: [facility] 07-08-2024 11:55-0400 Systolic blood pressure 114 mm[Hg] Chhaya Saldana MD Work Phone: [facility] 04-09-2024 13:42-0500 Body temperature 96.91 [degF] Danielle Arreola DPM Work Phone: [facility] 04-09-2024 13:42-0500 Diastolic blood pressure 88 mm[Hg] Danielle Maxwell DPM Work Phone: [facility] 04-09-2024 13:42-0500 Heart rate 83 /min Danielle Maxwell DPM Work Phone: [facility] 04-09-2024 13:42-0500 Respiratory rate 18 /min Danielle Arreola DPM Work Phone: [facility] 04-09-2024 13:42-0500 Systolic blood pressure 124 mm[Hg] Danielle Maxwell DPM Work Phone: [facility] 03-27-2024 14:58-0500 Body temperature 97.9 [degF] Julissa Claudia DO Work Phone: [facility] 03-27-2024 14:58-0500 Diastolic blood pressure 75 mm[Hg] Julissa Claudia DO Work Phone: [facility] 03-27-2024 14:58-0500 Heart rate 54 /min Julissa Claudia DO Work Phone: [facility] 03-27-2024 14:58-0500 Respiratory rate 18 /min Julissa Claudia DO Work Phone: [facility] 03-27-2024 14:58-0500 Systolic blood pressure 116 mm[Hg] Julissa Claudia DO Work Phone: [facility] 03-13-2024 13:57-0500 Body temperature 97.81 [degF] Julissa Claudia DO Work Phone: [facility] 03-13-2024 13:57-0500 Diastolic blood pressure 77 mm[Hg] Julissa Claudia DO Work Phone: [facility] 03-13-2024 13:57-0500 Heart rate 75 /min Julissa Claudia DO Work Phone: [facility] 03-13-2024 13:57-0500 Respiratory rate 20 /min Julissa Claudia DO Work Phone: [facility] 03-13-2024 13:57-0500 Systolic blood pressure 135 mm[Hg] Julissa Claudia DO Work Phone: [facility] 03-06-2024 10:37-0500 Body temperature 97.7 [degF] 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 Work Phone: [facility] 03-06-2024 10:37-0500 Diastolic blood pressure 73 mm[Hg] 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 - [employer] Work Phone: [facility] 03-06-2024 10:37-0500 Heart rate 82 /min 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 - [employer] Work Phone: [facility] 03-06-2024 10:37-0500 Respiratory rate 18 /min 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 - [employer] Work Phone: [facility] 03-06-2024 10:37-0500 Systolic blood pressure 101 mm[Hg] 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 [employer] Work Phone: [facility] 02-28-2024 09:41-0500 Body temperature 97.11 [degF] Julissa Claudia DO Work Phone: [facility] 02-28-2024 09:41-0500 Diastolic blood pressure 72 mm[Hg] Julissa Claudia DO Work Phone: [facility] 02-28-2024 09:41-0500 Heart rate 60 /min Julissaamanda Taylor DO Work Phone: [facility] 02-28-2024 09:41-0500 Respiratory rate 20 /min Julissaamanda Nelsone DO Work Phone: [facility] 02-28-2024 09:41-0500 Systolic blood pressure 133 mm[Hg] Julissaamanda Nelsone DO Work Phone: [facility] 02-21-2024 09:56-0500 Body temperature 97.2 [degF] Julissa Taylor DO Work Phone: [facility] 02-21-2024 09:56-0500 Diastolic blood pressure 72 mm[Hg] Julissa Nelsone DO Work Phone: [facility] 02-21-2024 09:56-0500 Heart rate 79 /min Julissaamanda Nelsone DO Work Phone: [facility] 02-21-2024 09:56-0500 Respiratory rate 18 /min Julissa Taylor DO Work Phone: [facility] 02-21-2024 09:56-0500 Systolic blood pressure 113 mm[Hg] Julissaamanda Nelsone DO Work Phone: [facility] 02-18-2024 03:11-0500 Diastolic blood pressure 72 mm[Hg] Kaylee Bunch MD Work Phone: [facility] 02-18-2024 03:11-0500 Heart rate 88 /min Kaylee Bunch MD Work Phone: [facility] 02-18-2024 03:11-0500 Respiratory rate 16 /min Kaylee Bunch MD Work Phone: [facility] 02-18-2024 03:11-0500 SaO2% (BldA) [Mass fraction] 99 % Kaylee Bunch MD Work Phone: [facility] 02-18-2024 03:11-0500 Systolic blood pressure 103 mm[Hg] Kaylee Bunch MD Work Phone: [facility] 02-18-2024 01:02-0500 Body temperature 97.7 [degF] Kaylee Bunch MD Work Phone: [facility] 02-14-2024 08:43-0500 Body temperature 97.2 [degF] Julissa Claudia DO Work Phone: [facility] 02-14-2024 08:43-0500 Diastolic blood pressure 82 mm[Hg] Julissa Claudia DO Work Phone: [facility] 02-14-2024 08:43-0500 Heart rate 80 /min Julissa Claudia DO Work Phone: [facility] 02-14-2024 08:43-0500 Respiratory rate 18 /min Julissa Claudia DO Work Phone: [facility] 02-14-2024 08:43-0500 Systolic blood pressure 122 mm[Hg] Julissa Claudia DO Work Phone: [facility] 02-07-2024 09:15-0400 Body temperature 97.81 [degF] Julissa Claudia DO Work Phone: [facility] 02-07-2024 09:15-0400 Diastolic blood pressure 69 mm[Hg] Julissa Claudia DO Work Phone: [employer] [facility] 02-07-2024 09:15-0400 Heart rate 89 /min Julissa Claudia DO Work Phone: [employer] [facility] 02-07-2024 09:15-0400 Respiratory rate 18 /min Julissa Claudia DO Work Phone: [facility] [employer] 02-07-2024 09:15-0400 Systolic blood pressure 100 mm[Hg] Julissa Claudia DO Work Phone: [facility] [employer] 01-31-2024 08:18-0400 Body temperature 97.11 [degF] Julissa Claudia DO Work Phone: [employer] [facility] [employer] 01-31-2024 08:18-0400 Diastolic blood pressure 74 mm[Hg] Julissa Claudia DO Work Phone: [facility] 01-31-2024 08:18-0400 Heart rate 89 /min Julissa Claudia DO Work Phone: [facility] 01-31-2024 08:18-0400 Respiratory rate 18 /min Julissa Claudia DO Work Phone: [facility] 01-31-2024 08:18-0400 Systolic blood pressure 106 mm[Hg] Julissa Claudia DO Work Phone: [facility] 01-24-2024 10:12-0400 Body temperature 96.8 [degF] Julissa Claudia DO Work Phone: [facility] 01-24-2024 10:12-0400 Diastolic blood pressure 78 mm[Hg] Julissa Claudia DO Work Phone: [facility] 01-24-2024 10:12-0400 Heart rate 89 /min Julissa Claudia DO Work Phone: [facility] 01-24-2024 10:12-0400 Respiratory rate 18 /min Julissa Claudia DO Work Phone: [facility] 01-24-2024 10:12-0400 Systolic blood pressure 110 mm[Hg] Julissa Claudia DO Work Phone: [facility] 01-17-2024 09:53-0400 Body temperature 97.5 [degF] Julissa Claudia DO Work Phone: [facility] 01-17-2024 09:53-0400 Diastolic blood pressure 93 mm[Hg] Julissa Claudia DO Work Phone: [facility] 01-17-2024 09:53-0400 Heart rate 91 /min Julissa Claudia DO Work Phone: [facility] 01-17-2024 09:53-0400 Respiratory rate 20 /min Julissa Claudia DO Work Phone: [facility] 01-17-2024 09:53-0400 Systolic blood pressure 131 mm[Hg] Julissa Claudia DO Work Phone: [facility] 01-10-2024 09:29-0400 Body temperature 97.3 [degF] Julissa Claudia DO Work Phone: [facility] 01-10-2024 09:29-0400 Diastolic blood pressure 78 mm[Hg] Julissa Claudia DO Work Phone: [facility] 01-10-2024 09:29-0400 Heart rate 92 /min Julissa Claudia DO Work Phone: [facility] 01-10-2024 09:29-0400 Respiratory rate 18 /min Julissa Claudia DO Work Phone: [facility] 01-10-2024 09:29-0400 Systolic blood pressure 121 mm[Hg] Julissa Claudia DO Work Phone: [facility] 01-03-2024 15:08-0400 Body temperature 97.81 [degF] Julissa Claudia DO Work Phone: [facility] 01-03-2024 15:08-0400 Diastolic blood pressure 66 mm[Hg] Julissa Claudia DO Work Phone: [facility] 01-03-2024 15:08-0400 Heart rate 76 /min Julissa Claudia DO Work Phone: [facility] 01-03-2024 15:08-0400 Respiratory rate 18 /min Julissa Cluadia DO Work Phone: [facility] 01-03-2024 15:08-0400 Systolic blood pressure 100 mm[Hg] Julissa Claudia DO Work Phone: [facility] 12-27-2023 13:43-0400 Body temperature 97.5 [degF] Julissa Claudia DO Work Phone: [facility] 12-27-2023 13:43-0400 Diastolic blood pressure 65 mm[Hg] Julissa Claudia DO Work Phone: [facility] 12-27-2023 13:43-0400 Heart rate 62 /min Julissa Claudia DO Work Phone: [facility] 12-27-2023 13:43-0400 Respiratory rate 18 /min Julissa Claudia DO Work Phone: [facility] 12-27-2023 13:43-0400 Systolic blood pressure 111 mm[Hg] Julissa Claudia DO Work Phone: [facility] 12-20-2023 11:10-0400 Body temperature 98.01 [degF] Julissa Claudia DO Work Phone: [facility] 12-20-2023 11:10-0400 Diastolic blood pressure 74 mm[Hg] Julissa Claudia DO Work Phone: [facility] 12-20-2023 11:10-0400 Heart rate 64 /min Julissa Claudia DO Work Phone: [facility] 12-20-2023 11:10-0400 Respiratory rate 18 /min Julissa Claudia DO Work Phone: [facility] 12-20-2023 11:10-0400 Systolic blood pressure 108 mm[Hg] Julissa Claudia DO Work Phone: [facility] 12-13-2023 15:19-0400 Body temperature 97.5 [degF] Julissa Claudia DO Work Phone: [facility] 12-13-2023 15:19-0400 Diastolic blood pressure 68 mm[Hg] Julissa Claudia DO Work Phone: [facility] 12-13-2023 15:19-0400 Heart rate 62 /min Julissa Claudia DO Work Phone: [facility] 12-13-2023 15:19-0400 Systolic blood pressure 109 mm[Hg] Julissa Claudia DO Work Phone: [facility] 12-06-2023 10:53-0400 Body temperature 97.9 [degF] Julissa Claudia DO Work Phone: [facility] 12-06-2023 10:53-0400 Diastolic blood pressure 63 mm[Hg] Julissa Claudia DO Work Phone: [facility] 12-06-2023 10:53-0400 Heart rate 62 /min Julissa Claudia DO Work Phone: [facility] 12-06-2023 10:53-0400 Respiratory rate 18 /min Julissa Claudia DO Work Phone: [facility] 12-06-2023 10:53-0400 Systolic blood pressure 94 mm[Hg] Julissa Claudia DO Work Phone: [facility] 11-29-2023 10:35-0400 Body temperature 97.11 [degF] Julissa Claudia DO Work Phone: [facility] 11-29-2023 10:35-0400 Diastolic blood pressure 73 mm[Hg] Julissa Claudia DO Work Phone: [facility] 11-29-2023 10:35-0400 Heart rate 66 /min Julissa Claudia DO Work Phone: [facility] 11-29-2023 10:35-0400 Systolic blood pressure 114 mm[Hg] Julissa Claudia DO Work Phone: [facility] 11-22-2023 10:57-0400 Body temperature 97.39 [degF] Julissa Claudia DO Work Phone: [facility] 11-22-2023 10:57-0400 Diastolic blood pressure 75 mm[Hg] Julissa Claudia DO Work Phone: [facility] 11-22-2023 10:57-0400 Heart rate 79 /min Julissa Claudia DO Work Phone: [facility] 11-22-2023 10:57-0400 Systolic blood pressure 106 mm[Hg] Julissa Claudia DO Work Phone: [facility] 11-17-2023 10:35-0400 Body temperature 97.11 [degF] [facility] 11-17-2023 10:35-0400 Diastolic blood pressure 83 mm[Hg] [facility] 11-17-2023 10:35-0400 Heart rate 81 /min [facility] 11-17-2023 10:35-0400 Respiratory rate 18 /min [facility] 11-17-2023 10:35-0400 Systolic blood pressure 119 mm[Hg] [facility] 11-15-2023 11:07-0400 Body temperature 97.59 [degF] Julissa Claudia DO Work Phone: [facility] 11-15-2023 11:07-0400 Diastolic blood pressure 69 mm[Hg] Julissa Claudia DO Work Phone: [facility] 11-15-2023 11:07-0400 Heart rate 62 /min Julissa Claudia DO Work Phone: [facility] 11-15-2023 11:07-0400 Respiratory rate 18 /min Julissa Claudia DO Work Phone: [facility] 11-15-2023 11:07-0400 Systolic blood pressure 102 mm[Hg] Julissa Claudia DO Work Phone: [facility] 11-08-2023 09:45-0400 Body temperature 98.29 [degF] Julissa Claudia DO Work Phone: [facility] 11-08-2023 09:45-0400 Diastolic blood pressure 71 mm[Hg] Julissa Claudia DO Work Phone: [facility] 11-08-2023 09:45-0400 Heart rate 91 /min Julissa Claudia DO Work Phone: [facility] 11-08-2023 09:45-0400 Respiratory rate 20 /min Julissa Claudia DO Work Phone: [facility] 11-08-2023 09:45-0400 Systolic blood pressure 140 mm[Hg] Julissa Claudia DO Work Phone: [facility] 11-01-2023 08:53-0400 Body temperature 98.01 [degF] Julissa Claudia DO Work Phone: [facility] 11-01-2023 08:53-0400 Diastolic blood pressure 75 mm[Hg] Julissa Claudia DO Work Phone: [facility] 11-01-2023 08:53-0400 Heart rate 155 /min Julissa Claudia DO Work Phone: [facility] 11-01-2023 08:53-0400 Respiratory rate 18 /min Julissa Claudia DO Work Phone: [facility] 11-01-2023 08:53-0400 Systolic blood pressure 101 mm[Hg] Julissa Claudia DO Work Phone: [facility] 10-25-2023 08:51-0400 Body temperature 96.8 [degF] Julissa Claudia DO Work Phone: [facility] 10-25-2023 08:51-0400 Diastolic blood pressure 74 mm[Hg] Julissa Claudia DO Work Phone: [facility] 10-25-2023 08:51-0400 Heart rate 63 /min Julissa Claudia DO Work Phone: [facility] 10-25-2023 08:51-0400 Respiratory rate 18 /min Julissa Claudia DO Work Phone: [facility] 10-25-2023 08:51-0400 Systolic blood pressure 119 mm[Hg] Julissa Claudia DO Work Phone: [facility] 10-18-2023 10:30-0400 Body temperature 97.2 [degF] Julissa Claudia DO Work Phone: [facility] 10-18-2023 10:30-0400 Diastolic blood pressure 94 mm[Hg] Julissa Claudia DO Work Phone: [facility] 10-18-2023 10:30-0400 Heart rate 69 /min Julissa Claudia DO Work Phone: [facility] 10-18-2023 10:30-0400 Respiratory rate 18 /min Julissa Claudia DO Work Phone: [facility] 10-18-2023 10:30-0400 Systolic blood pressure 139 mm[Hg] Julissa Claudia DO Work Phone: [facility] 10-11-2023 08:55-0400 Body temperature 97.5 [degF] Julissaamanda Nelsone DO Work Phone: [facility] 10-11-2023 08:55-0400 Diastolic blood pressure 79 mm[Hg] Julissaamanda Nelsone DO Work Phone: [facility] 10-11-2023 08:55-0400 Heart rate 79 /min Julissaamanda Nelsone DO Work Phone: [facility] 10-11-2023 08:55-0400 Respiratory rate 18 /min Julissaamanda Nelsone DO Work Phone: [facility] 10-11-2023 08:55-0400 Systolic blood pressure 122 mm[Hg] Julissa Claudia DO Work Phone: [facility] 10-04-2023 13:55-0400 Body height 177.8 cm Julissa Nelsone DO Work Phone: [facility] 10-04-2023 13:55-0400 Body mass index (BMI) [Ratio] 36.3 kg/m2 Julissa Claudia DO Work Phone: [facility] 10-04-2023 13:55-0400 Body temperature 97.7 [degF] Julissa Nelsone DO Work Phone: [facility] 10-04-2023 13:55-0400 Body weight 114.76 kg Julissaamanda Nelsone DO Work Phone: [facility] 10-04-2023 13:55-0400 Diastolic blood pressure 70 mm[Hg] Julissa Claudia DO Work Phone: [facility] 10-04-2023 13:55-0400 Heart rate 79 /min Julissaamanda Nelsone DO Work Phone: [facility] 10-04-2023 13:55-0400 Systolic blood pressure 110 mm[Hg] Julissaamanda Nelsone DO Work Phone: [facility] 09-27-2023 13:13-0400 Body height 177.8 cm Julissaamanda Nelsone DO Work Phone: [employer] [facility] 09-27-2023 13:13-0400 Body mass index (BMI) [Ratio] 36.3 kg/m2 Julissaamanda Nelsone DO Work Phone: [facility] 09-27-2023 13:13-0400 Body temperature 97.7 [degF] Julissaamanda Nelsone DO Work Phone: [facility] 09-27-2023 13:13-0400 Body weight 114.76 kg Julissaamanda Nelsone DO Work Phone: [facility] 09-27-2023 13:13-0400 Diastolic blood pressure 63 mm[Hg] Julissaamanda Nelsone DO Work Phone: [facility] 09-27-2023 13:13-0400 Heart rate 88 /min Julissaamanda Nelsone DO Work Phone: [facility] 09-27-2023 13:13-0400 Systolic blood pressure 94 mm[Hg] Julissaamanda Nelsone DO Work Phone: [facility] 09-20-2023 14:34-0400 Body height 177.8 cm Julissa Claudia DO Work Phone: [facility] 09-20-2023 14:34-0400 Body mass index (BMI) [Ratio] 36.3 kg/m2 Julissaamanda Nelsone DO Work Phone: [facility] 09-20-2023 14:34-0400 Body temperature 97.2 [degF] Julissa Nelsone DO Work Phone: [facility] 09-20-2023 14:34-0400 Body weight 114.76 kg Julissaamanda Nelsone DO Work Phone: [facility] 09-20-2023 14:34-0400 Diastolic blood pressure 75 mm[Hg] Julissaamanda Nelsone DO Work Phone: [facility] 09-20-2023 14:34-0400 Heart rate 71 /min Julissaamanda Nelsone DO Work Phone: [facility] 09-20-2023 14:34-0400 Systolic blood pressure 115 mm[Hg] Julissaamanda Nelsone DO Work Phone: [facility] 09-13-2023 14:17-0400 Body temperature 97.5 [degF] Julissa Claudia DO Work Phone: [facility] 09-13-2023 14:17-0400 Diastolic blood pressure 60 mm[Hg] Julissa Claudia DO Work Phone: [facility] 09-13-2023 14:17-0400 Heart rate 58 /min Julissa Claudia DO Work Phone: [facility] 09-13-2023 14:17-0400 Respiratory rate 20 /min Julissaamanda Nelsone DO Work Phone: [facility] 09-13-2023 14:17-0400 Systolic blood pressure 105 mm[Hg] Julissa Claudia DO Work Phone: [facility] 09-06-2023 13:34-0400 Body height 177.8 cm Julissaamanda Nelsone DO Work Phone: [facility] 09-06-2023 13:34-0400 Body mass index (BMI) [Ratio] 36.3 kg/m2 Julissa Claudia DO Work Phone: [facility] 09-06-2023 13:34-0400 Body temperature 97.59 [degF] Julissaamanda Nelsone DO Work Phone: [facility] 09-06-2023 13:34-0400 Body weight 114.76 kg Julissaamanda Nelsone DO Work Phone: [facility] 09-06-2023 13:34-0400 Diastolic blood pressure 80 mm[Hg] Julissa Claudia DO Work Phone: [facility] 09-06-2023 13:34-0400 Heart rate 57 /min Julissaamanda Nelsone DO Work Phone: [facility] 09-06-2023 13:34-0400 Systolic blood pressure 119 mm[Hg] Julissa Claudia DO Work Phone: [facility] 08-30-2023 09:20-0400 Body height 177.8 cm Julissaamanda Nelsone DO Work Phone: [facility] 08-30-2023 09:20-0400 Body mass index (BMI) [Ratio] 36.3 kg/m2 Julissa Claudai DO Work Phone: [facility] 08-30-2023 09:20-0400 Body temperature 97.39 [degF] Julissa Claudia DO Work Phone: [facility] 08-30-2023 09:20-0400 Body weight 114.76 kg Julissa Claudia DO Work Phone: [facility] 08-30-2023 09:20-0400 Diastolic blood pressure 86 mm[Hg] Julissa Claudia DO Work Phone: [facility] 08-30-2023 09:20-0400 Heart rate 79 /min Julissa Claudia DO Work Phone: [facility] 08-30-2023 09:20-0400 Systolic blood pressure 126 mm[Hg] Julissa Claudia DO Work Phone: [facility] 08-23-2023 14:03-0400 Body mass index (BMI) [Ratio] 36.3 kg/m2 Julissa Claudia DO Work Phone: [facility] 08-23-2023 14:03-0400 Body temperature 98.2 [degF] Julissa Claudia DO Work Phone: [facility] 08-23-2023 14:03-0400 Body weight 114.76 kg Julissaamanda Nelsone DO Work Phone: [facility] 08-23-2023 14:03-0400 Diastolic blood pressure 67 mm[Hg] Julissa Claudia DO Work Phone: [facility] 08-23-2023 14:03-0400 Heart rate 82 /min Julissa Claudia DO Work Phone: [facility] 08-23-2023 14:03-0400 Respiratory rate 18 /min Julissa Claudia DO Work Phone: [facility] 08-23-2023 14:03-0400 Systolic blood pressure 93 mm[Hg] Julissa Claudia DO Work Phone: [facility] 06-23-2023 03:03-0400 Diastolic blood pressure 90 mm[Hg] Fred Holloway MD Work Phone: [facility] 06-23-2023 03:03-0400 Heart rate 81 /min Fred Holloway MD Work Phone: [facility] 06-23-2023 03:03-0400 Respiratory rate 14 /min Fred Holloway MD Work Phone: [facility] 06-23-2023 03:03-0400 SaO2% (BldA) [Mass fraction] 96 % Fred Holloway MD Work Phone: [facility] 06-23-2023 03:03-0400 Systolic blood pressure 153 mm[Hg] Fred Holloway MD Work Phone: [facility] 06-22-2023 21:52-0400 Body height 177.8 cm Fred Holloway MD Work Phone: [facility] 06-22-2023 21:52-0400 Body temperature 97.9 [degF] Fred Holloway MD Work Phone: [facility] 06-16-2023 14:09-0500 Diastolic blood pressure 68 mm[Hg] Chhaya Saldana MD Work Phone: [facility] 06-16-2023 14:09-0500 Heart rate 56 /min Chhaya Saldana MD Work Phone: [facility] 06-16-2023 14:09-0500 SaO2% (BldA) [Mass fraction] 96 % Chhaya Saldana MD Work Phone: [facility] 06-16-2023 14:09-0500 Systolic blood pressure 93 mm[Hg] Chhaya Saldana MD Work Phone: [facility] 11-17-2022 13:14-0400 Body height 185.4 cm Jesús Ellis MD Work Phone: [facility] 11-17-2022 13:14-0400 Body mass index (BMI) [Ratio] 33.38 kg/m2 Jesús Ellis MD Work Phone: [employer] [facility] 11-17-2022 13:14-0400 Body temperature 97.9 [degF] Jesús Ellis MD Work Phone: [facility] 11-17-2022 13:14-0400 Body weight 114.76 kg Jesús Ellis MD Work Phone: [facility] 11-17-2022 13:14-0400 Diastolic blood pressure 80 mm[Hg] Jesús Ellis MD Work Phone: [facility] 11-17-2022 13:14-0400 Heart rate 57 /min Jesús Ellis MD Work Phone: [employer] [facility] 11-17-2022 13:14-0400 Respiratory rate 16 /min Jesús Ellis MD Work Phone: [facility] 11-17-2022 13:14-0400 SaO2% (BldA) [Mass fraction] 96 % Jesús Ellis MD Work Phone: [facility] 11-17-2022 13:14-0400 Systolic blood pressure 125 mm[Hg] Jesús Ellis MD Work Phone: [employer] [facility] 11-16-2022 09:51-0400 Body mass index (BMI) [Ratio] 32.14 kg/m2 Josette Joe PA-C Work Phone: [employer] [facility] 11-16-2022 09:51-0400 Body temperature 98.01 [degF] Josette Joe PA-C Work Phone: [employer] [facility] 11-16-2022 09:51-0400 Body weight 107.5 kg Josette Joe PA-C Work Phone: [employer] [facility] 11-16-2022 09:51-0400 Diastolic blood pressure 60 mm[Hg] Josette Joe PA-C Work Phone: [employer] [facility] 11-16-2022 09:51-0400 Heart rate 60 /min Josette Joe PA-C Work Phone: [facility] 11-16-2022 09:51-0400 Systolic blood pressure 90 mm[Hg] Josette Diaz PA-C Work Phone: [facility] 07-29-2022 11:58-0400 Body temperature 98.2 [degF] Brady Powell MD Work Phone: [employer] [facility] 07-29-2022 11:58-0400 Diastolic blood pressure 56 mm[Hg] Brady Powell MD Work Phone: [facility] 07-29-2022 11:58-0400 Heart rate 68 /min Brady Powell MD Work Phone: [facility] 07-29-2022 11:58-0400 Systolic blood pressure 102 mm[Hg] Brady Powell MD Work Phone: [facility] 06-23-2022 13:05-0400 Body height 188 cm Tresagifty Smallwood DO Work Phone: [facility] 06-23-2022 12:03-0400 Body temperature 98.91 [degF] Tresagifty Smallwood DO Work Phone: [employer] [facility] 06-23-2022 12:03-0400 Diastolic blood pressure 95 mm[Hg] Tresagifty Smallwood DO Work Phone: [employer] [facility] 06-23-2022 12:03-0400 Heart rate 97 /min Tresagifty Smallwood DO Work Phone: [employer] [facility] 06-23-2022 12:03-0400 Respiratory rate 18 /min Tresa Smallwood DO Work Phone: [employer] [facility] 06-23-2022 12:03-0400 SaO2% (BldA) [Mass fraction] 95 % Tresagifty Smallwood DO Work Phone: [facility] 06-23-2022 12:03-0400 Systolic blood pressure 127 mm[Hg] Tresagifty Smallwood DO Work Phone: [facility] 06-22-2022 06:00-0400 Body mass index (BMI) [Ratio] 31.83 kg/m2 Tresa Smallwood DO Work Phone: [employer] 06-22-2022 06:00-0400 Body weight 112.5 kg Tresa Smallwood DO Work Phone: [employer] 06-16-2022 09:44-0500 SaO2% (BldA) [Mass fraction] 94.0 % Tresa Smallwood DO Work Phone: [employer] 06-26-2020 19:13-0400 BP Diastolic 92 mm[Hg] Loki [...] 20:13-0500 Body Temperature 98.2 [degF] Melly Marinelli [place] 02-19-2020 20:13-0500 BP Diastolic 84 mm[Hg] [facility] [place] 02-19-2020 20:13-0500 BP Systolic 146 mm[Hg] Melly Marinelli [facility] [employer] [facility] [employer] [place] 02-19-2020 20:13-0500 Pulse (Heart Rate) 85 /min [facility] [place] [employer] [place] 02-19-2020 20:13-0500 Pulse Oximetry 95 % [facility] [place] 02-19-2020 20:13-0500 Respiratory Rate 18 /min Melly Marinelli [place] 04-05-2019 17:19-0500 Diastolic blood pressure 76 mm[Hg] Jesús Ellis MD Work Phone: [facility] Work Phone: 04-05-2019 17:19-0500 Respiratory rate 16 /min Jesús Ellis MD Work Phone: [facility] Work Phone: 04-05-2019 17:19-0500 Systolic blood pressure 114 mm[Hg] Jesús Ellis MD Work Phone: [facility] Work Phone: 04-05-2019 17:18-0500 Heart rate 80 /min Jesús Ellis MD Work Phone: [facility] Work Phone: 04-05-2019 17:18-0500 SaO2% (BldA) [Mass fraction] 100 % Jesús Ellis MD Work Phone: [facility] Work Phone: 04-05-2019 13:20-0500 Body height 185.4 cm Jesús Ellis MD Work Phone: [facility] Work Phone: 04-05-2019 13:20-0500 Body mass index (BMI) [Ratio] 32.72 kg/m2 Jesús Ellis MD Work Phone: [facility] Work Phone: 04-05-2019 13:20-0500 Body temperature 97.81 [degF] Jesús Ellis MD Work Phone: [facility] Work Phone: 04-05-2019 13:20-0500 Body weight 112.49 kg Jesús Ellis MD Work Phone: [facility] Work Phone: Encounters Encounter Date Encounter Type Care Provider Facility Start: 09-20-2024 ambulatory Demetrius WICK Faci lity:[facility] Start: 07-29-2024 End: 07-29-2024 ambulatory Demetrius WICK [facility] Work Phone: Start: 07-29-2024 End: 07-29-2024 Departed Referred [facility]ri[facility] Start: 07-29-2024 Registered Referred Demetrius [facility] Start: 07-29-2024 End: 07-29-2024 ambulatory Demetrius WICK Facility:[facility] Start: 07-22-2024 End: 07-22-2024 ambulatory Demetrius WICK [facility] Work Phone: Start: 07-22-2024 End: 07-22-2024 Departed Referred [facility]etrius [facility] Start: 07-22-2024 Registered Referred [facility] Start: 07-22-2024 End: 07-22-2024 ambulatory Demetrius WICK Facility:[facility] Start: 07-08-2024 End: 07-08-2024 Patient encounter procedure Chhaya Saldana MD Work Phone: Neurology Comment on above: Chronic daily headac he (Primary Dx); Traumatic brain injury with loss of consciousness, sequela Start: 07-08-2024 End: 07-08-2024 ambulatory DEMETRIUS FENTON Facility:[facility] Start: 07-08-2024 End: 07-08-2024 Departed Referred [facility] Start: 07-08-2024 Registered Referred [facility] Start: 07-08-2024 End: 07-08-2024 ambulatory Demetrius WICK Facility:[facility] Start: 06-10-2024 End: 06-10-2024 ambulatory Demetrius WICK [facility] Work Phone: Start: 06-10-2024 End: 06-10-2024 Departed Referred [facility] Start: 06-10-2024 End: 06-10-2024 ambulatory Demetrius WICK Facility:[facility] Start: 04-09-2024 End: 04-09-2024 Office outpatient visit 15 minutes Danielle Arreola DPM Work Phone: [facility] - [...] mobility; Lymphedema Start: 04-09-2024 End: 04-09-2024 ambulatory DEMETRIUS FENTON [facility] Start: 03-27-2024 End: 03-27-2024 Office outpatient visit 15 minutes Julissa Taylor DO Work Phone: [facility] Dominique Gar Comment on above: 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) (Primary Dx); Peripheral venous insufficiency [I87.2] Start: 03-27-2024 End: 03-27-2024 ambulatory DEMETRIUS FENTON [facility] Start: 03-20-2024 End: 03-20-2024 [facility] Start: 03-18-2024 ambulatory Demetrius Ortizsunday WICK Faci lity:[facility] Start: 03-13-2024 End: 03-13-2024 Subsequent hospital visit by physician Julissa Mack Phone: [facility] Domin[facility] Gar Comment on above: Arrived Start: 03-13-2024 End: 03-13-2024 [facility] Start: 03-13-2024 ambulatory Demetrius Fenton SHAMIKA Faci lity:[facility] Start: 03-13-2024 Registered Referred Demetrius Lilliesonja - [facility] Start: 03-06-2024 End: 03-06-2024 Subsequent hospital visit by physician Anai Fox CNP Work Phone: [facility] Domin[facility] Gar Comment on above: Chronic venous hyper tension [...] insufficiency [I87.2] Start: 03-06-2024 End: 03-06-2024 ambulatory [facility] Start: 02-28-2024 End: 02-28-2024 Subsequent hospital visit by physician Julissa Taylor DO Work Phone: 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 Therapy Dominique Gar Comment on above: Arrived Start: 02-21-2024 End: 02-21-2024 ambulatory [facility] Start: 02-18-2024 End: 02-18-2024 Emergency department patient visit Kaylee Bunch MD Work Phone: [facility] ED Comment on above: Nonintractable heada james, unspecified chronicity pattern, unspecified headache type (Primary Dx) Start: 02-14-2024 End: 02-14-2024 Office outpatient visit 15 minutes Julissa Taylor DO Work Phone: [facility] - [facility] Comment on above: 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) (Primary Dx); Venous insufficiency (chronic) (peripheral); Decreased mobility Start: 02-14-2024 End: 02-14-2024 [facility] Start: 02-07-2024 End: 02-07-2024 [facility] Start: 02-07-2024 End: 02-07-2024 Office outpatient visit 15 minutes Julissa Taylor DO Work Phone: [facility] - [facility] Comment on above: 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 Start: 01-29-2024 End: 01-29-2024 ambulatory Demetrius Fenton [facility] Facility:[facility] Start: 01-24-2024 End: 01-24-2024 [facility] Start: 01-24-2024 End: 01-24-2024 Office outpatient visit 15 minutes Julissa Taylor DO Work Phone: 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) (Primary Dx); Venous insufficiency (chronic) (peripheral); Decreased mobility Start: 01-10-2024 End: 01-10-2024 ambulatory DEMETRIUS FENTON [facility] Start: 01-10-2024 End: 01-10-2024 Office outpatient visit 15 minutes Julissa Taylor DO Work Phone: [facility] Comment on above: 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) (Primary Dx); Venous insufficiency (chronic) (peripheral); Decreased mobility Start: 01-03-2024 End: 01-03-2024 ambulatory DEMETRIUS FENTON [facility] Start: 12-27-2023 End: 12-27-2023 Subsequent hospital visit by physician Julissa Taylor DO Work Phone: [facility] - [facility] Comment on above: Arrived Start: 12-27-2023 End: 12-27-2023 [facility] Start: 12-20-2023 End: 12-20-2023 Office outpatient visit 15 minutes Julissa Taylor DO Work Phone: [facility] Dominique Gar Comment on above: 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) (Primary Dx); Venous insufficiency (chronic) (peripheral); Lymphedema; Decreased mobility Start: 12-20-2023 End: 12-20-2023 ambulatory [facility] Start: 12-13-2023 End: 12-13-2023 Office outpatient visit 15 minutes Julissa Taylor DO Work Phone: [facility] Comment on above: 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) (Primary Dx); Venous insufficiency (chronic) (peripheral); Lymphedema; Decreased mobility Start: 11-22-2023 End: 11-22-2023 ambulatory [facility] Start: 11-22-2023 End: 11-22-2023 Subsequent hospital visit by physician Julissa Taylor DO Work Phone: [facility] Comment on above: 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) (Primary Dx); Venous insufficiency (chronic) (peripheral); Lymphedema; Decreased mobility Start: 11-17-2023 End: 11-17-2023 Subsequent hospital visit by physician [facility] Nurse Schedule [facility] Comment on above: 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) Start: 11-17-2023 End: 11-17-2023 [facility] Start: 11-15-2023 End: 11-15-2023 [facility] Start: 11-15-2023 End: 11-15-2023 Office outpatient visit 15 minutes Julissa Taylor DO Work Phone: [facility] Comment on above: 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) (Primary Dx); Venous insufficiency (chronic) (peripheral); Lymphedema; Decreased mobility; Cellulitis of right lower leg Start: 11-08-2023 End: 11-08-2023 [facility] Start: 11-08-2023 End: 11-08-2023 Office outpatient visit 15 minutes Julissa Taylor DO Work Phone: [facility] Comment on above: 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) (Primary Dx); Venous insufficiency (chronic) (peripheral); Lymphedema; Decreased mobility Start: 11-01-2023 End: 11-01-2023 [facility] Start: 11-01-2023 End: 11-01-2023 Office outpatient visit 15 minutes Julissa Taylor DO Work Phone: [facility] Comment on above: 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) (Primary Dx); Venous insufficiency (chronic) (peripheral); Lymphedema; Decreased mobility Start: 10-25-2023 End: 10-25-2023 [facility] Start: 10-25-2023 End: 10-25-2023 Subsequent hospital visit by physician Julissa Mack Phone: [facility] Comment on above: 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) (Primary Dx); Venous insufficiency (chronic) (peripheral); Lymphedema; Decreased mobility; Non-pressure chronic ulcer right lower leg, limited to breakdown skin (HCC) Start: 10-18-2023 End: 10-18-2023 [facility] Start: 10-18-2023 End: 10-18-2023 Office outpatient visit 15 minutes Julissa Taylor DO Work Phone: [facility] Comment on above: 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) (Primary Dx); Venous insufficiency (chronic) (peripheral); Lymphedema; Decreased mobility; Cellulitis of left foot Start: 10-11-2023 End: 10-11-2023 [facility] Start: 10-11-2023 End: 10-11-2023 Subsequent hospital visit by physician Julissa Taylor DO Work Phone: [facility] Comment on above: 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) (Primary Dx); Venous insufficiency (chronic) (peripheral); Lymphedema; Decreased mobility Start: 10-04-2023 End: 10-04-2023 Subsequent hospital visit by physician Julissa Mack Phone: [facility] Comment on above: 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) (Primary Dx); Venous insufficiency (chronic) (peripheral); Lymphedema; Decreased mobility Start: 10-04-2023 End: 10-04-2023 [facility] Start: 09-27-2023 End: 09-27-2023 Office outpatient visit 15 minutes Julissa Taylor DO Work Phone: [facility] Comment on above: 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) (Primary Dx); Venous insufficiency (chronic) (peripheral); Lymphedema Start: 09-27-2023 End: 09-27-2023 Subsequent hospital visit by physician Julissa Mack Phone: [facility] Comment on above: Arrived Start: 09-27-2023 End: 09-27-2023 ambulatory [facility] Start: 09-20-2023 End: 09-20-2023 Office outpatient visit 15 minutes Julissa Mack Phone: [facility] Comment on above: 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) (Primary Dx); Venous insufficiency (chronic) (peripheral); Lymphedema Start: 09-20-2023 End: 09-20-2023 ambulatory [facility] Start: 09-13-2023 End: 09-13-2023 ambulatory [facility] Start: 09-13-2023 End: 09-13-2023 Subsequent hospital visit by physician Julissa Mack Phone: [facility] Comment on above: 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); Decreased mobility Start: 08-30-2023 End: 08-30-2023 ambulatory [facility] Start: 08-23-2023 End: 08-23-2023 Subsequent hospital visit by physician Julissa Taylor DO Work Phone: [facility] Comment on above: Lymphedema (Primary Dx); Venous insufficiency (chronic) (peripheral); Non-pressure chronic ulcer right lower leg, limited to breakdown skin (HCC); 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); Decreased mobility Start: 08-23-2023 End: 08-23-2023 ambulatory JULISSA [facility] Start: 07-16-2023 Registered Referred [facility] Start: 06-28-2023 End: 06-28-2023 ambulatory [facility] Work Phone: Start: 06-28-2023 End: 06-28-2023 Departed Referred [facility] Start: 06-27-2023 End: 06-27-[address] [facility] Work Phone: Start: 06-27-2023 End: 06-27-2023 Departed Referred [facility] Start: 06-27-2023 Registered Referred [facility] Start: 06-22-2023 End: 06-23-2023 Emergency department patient visit Fred Holloway MD Work Phone: [facility] ED Comment on above: Cellulitis of right [...] type Start: 06-12-2023 End: 06-12-2023 [facility] Start: 03-14-2023 End: 03-14-2023 ambulatory [facility] Work Phone: Start: 03-14-2023 End: 03-14-2023 [facility] Start: 03-14-2023 [facility] [employer] [facility] Start: 03-13-2023 End: 03-13-2023 ambulatory [facility] Work Phone: Start: 03-13-2023 End: 03-13-2023 [facility] Start: 02-09-2023 End: 02-09-2023 ambulatory [facility] Work Phone: Start: 02-09-2023 End: 02-09-2023 [facility] Start: 01-09-2023 End: 01-09-2023 ambulatory [facility] Work Phone: Start: 01-09-2023 End: 01-09-2023 [facility] Start: 01-02-2023 End: 01-02-2023 [facility] Start: 12-14-2022 End: 12-14-2022 ambulatory [facility] Work Phone: Start: 12-14-2022 End: 12-14-2022 [facility] Start: 12-14-2022 [facility] Start: 11-28-2022 End: 11-28-2022 ambulatory [facility] Work Phone: Start: 11-28-2022 End: 11-28-2022 [facility] Start: 11-28-2022 Registered Referred [facility] Start: 11-21-2022 End: 11-21-2022 ambulatory [facility] Work Phone: Start: 11-21-2022 End: 11-21-2022 Departed Referred [facility] Start: 11-21-2022 Registered Referred [facility] Start: 11-17-2022 End: 11-17-2022 Emergency department patient visit Jesús Ellis MD Work Phone: [facility] Comment on above: Passive suicidal dana ations (Primary Dx) Start: 11-16-2022 End: 11-16-2022 Postop follow up visit related to original px Josette Diaz PA-C Work Phone: [facility] Comment on above: Encounter for postop erative care (Primary Dx) Start: 10-26-2022 End: 10-26-2022 Subsequent hospital visit by physician Candie Vieyra PA-C Work Phone: [facility] Comment on above: Calculus of gallblad javier without cholecystitis without obstruction; Peripancreatic abscess Start: 10-24-2022 End: 10-24-2022 ambulatory [facility] Work Phone: Start: 10-24-2022 End: 10-24-2022 Departed Referred [facility] Start: 10-24-2022 Registered Referred [facility] Start: 10-14-2022 Orders Only Candie Vieyra PA-C Work Phone: [facility] Comment on above: Preop testing (Prima ry Dx) Start: 10-14-2022 Patient encounter status Tamir Vieyra PA-C Work Phone: [employer] Work Phone: Start: 10-03-2022 Telephone encounter Brady esquivel MD Work Phone: [facility] Start: 09-12-2022 End: 09-12-2022 ambulatory [facility] Work Phone: Start: 09-12-2022 End: 09-12-2022 Departed Referred [facility] Start: 09-12-2022 Registered Referred [facility] Start: 09-07-2022 End: 09-07-2022 ambulatory [facility] Work Phone: Start: 09-07-2022 End: 09-07-2022 Departed Referred [facility] Start: 08-22-2022 End: 08-22-2022 ambulatory [facility] Work Phone: Start: 08-22-2022 End: 08-22-2022 Departed Referred [facility] Start: 08-01-2022 Telephone encounter Candie de la torre PA-C Work Phone: [facility] Start: 08-01-2022 End: 08-01-2022 ambulatory [facility] Work Phone: Start: 08-01-2022 End: 08-01-2022 Departed Referred [facility] Start: 07-29-2022 End: 07-29-2022 Office outpatient new 45 minutes Brady Powell MD Work Phone: [facility] Comment on above: Calculus of gallblad javier without cholecystitis without obstruction (Primary Dx); Peripancreatic abscess; History of traumatic brain injury; Epigastric pain Start: 07-28-2022 End: 07-28-2022 Departed Referred [facility] Start: 07-18-2022 End: 07-18-2022 Departed Referred [facility] Start: 07-15-2022 Telephone encounter Brady esquivel MD Work Phone: [facility] Comment on above: OTHER Start: 06-30-2022 End: 06-30-2022 Departed Referred [facility] [facility] Start: 06-09-2022 Transcribe Orders Demetrius Frederick os Work Phone: [facility] Scheduling Comment on above: Peripheral vascular disease, unspecified (HCC) (Primary Dx); Venous insufficiency (chronic) (peripheral); 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) Start: 06-07-2022 End: 06-23-2022 Evaluation and management of inpatient [facility] Smallwood DO [facility] Start: 05-20-2022 End: 05-20-2022 ambulatory [facility] Work Phone: Start: 05-20-2022 End: 05-20-2022 Departed Referred [facility] Start: 05-20-2022 Registered Referred [facility] Start: 05-13-2022 End: 05-13-2022 Departed Referred [facility] Start: 04-29-2022 End: 04-29-2022 ambulatory [facility] Work Phone: Start: 04-29-2022 End: 04-29-2022 Departed Referred [facility] Start: 04-29-[address] [facility] Start: 04-22-2022 End: 04-22-2022 ambulatory [facility] Work Phone: Start: 04-22-2022 End: 04-22-2022 Departed Referred [facility] Start: 02-17-2022 End: 02-17-2022 ambulatory [facility] Work Phone: Start: 02-17-2022 End: 02-17-2022 Departed Referred [facility] [employer] Start: 02-17-2022 Registered Referred [facility] Start: 02-10-2022 End: 02-10-2022 ambulatory [facility] Work Phone: Start: 02-10-2022 End: 02-10-2022 Departed Referred [facility] Start: 01-17-2022 End: 01-17-2022 Departed Referred [facility] Start: 11-17-2021 End: 11-17-2021 ambulatory [facility] Work Phone: Start: 11-17-2021 End: 11-17-2021 Departed Referred [facility] Start: 10-20-2021 End: 10-20-2021 Subsequent hospital visit by physician Lorie Ospina APRN - [employer] Work Phone: [facility] Start: 10-13-2021 End: 10-13-2021 Subsequent hospital visit by physician Lorie Ospina SHOVEL LOADER OPERATOR - [employer] Work Phone: [facility] Start: 10-06-2021 End: 10-06-2021 Subsequent hospital visit by physician Lorie Ospina SHOVEL LOADER OPERATOR - [employer] Work Phone: [facility] Start: 09-29-2021 End: 09-29-2021 Subsequent hospital visit by physician Lorie Ospina SHOVEL LOADER OPERATOR - [employer] Work Phone: [facility] Start: 09-27-2021 Registered Referred [facility] Start: 09-17-2021 Registered Referred [facility] Start: 09-01-2021 End: 09-01-2021 Subsequent hospital visit by physician Lorie Ospina APRN - [employer] Work Phone: [facility] Start: 08-19-2021 End: 08-19-2021 Subsequent hospital visit by physician Lorie Ospina SHOVEL LOADER OPERATOR - [employer] Work Phone: [facility] Start: 08-11-2021 End: 08-11-2021 Subsequent hospital visit by physician Lorie Ospina SHOVEL LOADER OPERATOR - [employer] Work Phone: [facility] Start: 07-28-2021 End: 07-28-2021 Subsequent hospital visit by physician Lorie Ospina APRN - [employer] Work Phone: [facility] Start: 06-30-2021 End: 06-30-2021 Subsequent hospital visit by physician Lorie Ospina APRN - [employer] Work Phone: [facility] Start: 06-15-2021 End: 06-15-2021 Subsequent hospital visit by physician Lorie Ospina APRN - [employer] Work Phone: [facility] Start: 06-08-2021 End: 06-08-2021 Subsequent hospital visit by physician Lorie Ospina APRN - [employer] Work Phone: [facility] Start: 06-08-2021 End: 06-08-2021 Departed Referred [facility] Start: 05-25-2021 End: 05-25-2021 Subsequent hospital visit by physician Lorie Ospina SHOVEL LOADER OPERATOR - [employer] Work Phone: [facility] Start: 04-06-2021 Registered Referred [facility] Start: 06-26-2020 End: 06-26-2020 Emergency department patient visit Loki Hernandez Work Phone: [facility] ED Comment on above: Injury of head, init ial encounter (Primary Dx); Laceration of scalp, initial encounter Start: 02-19-2020 End: 02-19-2020 Emergency department patient visit Melly Marinelli Work Phone: [facility] ED Comment on above: Hypertensive urgency (Primary Dx); Acute nonintractable headache, unspecified headache type Start: 01-23-2020 End: 01-23-2020 Telephone encounter Margaret Christopher Work Phone: [place] [facility] Adult Comment on above: Appointment (needs o utpatient cystoscopy in the OR) Start: 04-05-2019 End: 04-05-2019 Emergency department patient visit Jesús Ellis MD Work Phone: [facility] Emergency Dept Comment on above: Cellulitis of [...] bact xcpt urine blood/stool aerobic isol Felicia Solorzano PA-C Work Phone: Start: 06-22-2023 Ecg routine ecg w/le ast 12 lds trcg only w/o i&r Felicia Solorzano PA-C Work Phone: Start: 06-22-2023 Bacteria identified in Blood by Culture Felicia Solorzano GERTRUDE-C Work Phone: Start: 06-22-2023 Comprehensive metabo lic panel Feilcia LOREDO-C Work Phone: Start: 12-14-2022 Investigation of transfusion reaction Start: 12-14-2022 Microbial culture, routine Start: 09-07-2022 Investigation of transfusion reaction Start: 09-07-2022 Microbial culture, routine Start: 07-18-2022 Urine culture Start: 06-23-2022 End: 06-23-2022 Cyanocobalamin vitamin b-12 Zeynep Wyatt APRN Work Phone: Start: 06-23-2022 Comprehensive metabo lic [...] Start: 06-21-2022 Comprehensive metabo lic panel Asia Nelsno MD Work Phone: Start: 06-21-2022 Manual differential [...] stick/tabl et reagent auto microscopy Brenda Blanco SHOVEL LOADER OPERATOR - [employer] Work Phone: Start: 06-15-2022 Radiologic exam ches t single view Asia Nelson MD Work Phone: Start: 06-15-2022 Chloride urine Brenda Blanco SHOVEL LOADER OPERATOR - [employer] Work Phone: Start: 06-15-2022 End: 06-15-2022 Smr [...] Phone: Start: 06-13-2022 PULSE OXIMETRY, CONTINUOUS Tresa Smallowod DO Work Phone: Start: 06-13-2022 Ct abdomen [...] Work Phone: Start: 06-11-2022 PULSE OXIMETRY, CONTINUOUS Tresagifty Smallwood DO Work Phone: Start: 06-11-2022 Dup-scan xtr veins c omplete bilateral study Demetrius Fenton Work Phone: Start: 06-11-2022 Smr prim src gram/gi emsa stain bct fungi/cell Mani Edgar DO Work Phone: Start: 06-11-2022 PULSE OXIMETRY, CONTINUOUS Tresanorman Smallwood DO Work Phone: Start: 06-11-2022 Comprehensive metabo lic panel Mani Edgar DO Work Phone: Start: 06-10-2022 PULSE OXIMETRY, CONTINUOUS Tresagifty Smallwood DO Work Phone: Start: 06-10-2022 Assay of triglycerides Mani Edgar DO Work Phone: Start: 06-10-2022 Image-guide fluid co llxn drainage cath visc ducq Ramesh Rasheed MD Work Phone: Start: 06-10-2022 [...] Work Phone: Start: 06-09-2022 PULSE OXIMETRY, CONTINUOUS Tresagifty Smallwood DO Work Phone: Start: 06-09-2022 TTE w or w/o contr, cont ECG Matteo Rios MD Work Phone: Start: 06-09-2022 PULSE OXIMETRY, CONTINUOUS Tresa Smallwood DO Work Phone: Start: 06-09-2022 Ecg routine ecg w/le ast 12 lds trcg only w/o i&r Brenda Vegako Work Phone: Start: 06-09-2022 Basic metabolic pane l calcium total Brenda Hagan Work Phone: Start: 06-08-2022 PULSE OXIMETRY, CONTINUOUS Tresa Smallwood DO Work Phone: Start: 06-08-2022 Non-invas physiologi c std extremity art 2 level Bertha Rodrigez SHOVEL LOADER OPERATOR - [employer] Work Phone: Start: 06-08-2022 TTE w or wo fol wcon,Doppler Brenda Hagan Work Phone: Start: 06-08-2022 Assay of troponin quantitative Brenda Hagan Work Phone: Start: 06-08-2022 Assay of troponin quantitative Brenda Hagan Work Phone: Start: 06-08-2022 Chloride urine [...] Work Phone: Start: 06-26-2020 LACERATION REPAIR Loki Arciniega Diallo Work Phone: Start: 02-19-2020 Ct head/brain w/o [...] DTaP/Tdap/Td vaccine (2 - Td or Tdap) [facility] Start: 06-26-2030 DTaP/Tdap/Td Vaccine s (2 - Td or Tdap) DTaP/Tdap/Td Vaccines (2 - Td or Tdap) [facility] Start: 06-26-2030 DTaP/Tdap/Td Vaccine s (3 - Td or Tdap) DTaP/Tdap/Td Vaccines (3 - Td or Tdap) [facility] Start: 06-26-2030 Urine microalbumin profile DTaP,Tdap,Td Vaccine (3 - Td or Tdap) [facility] Start: 06-26-2030 [facility] Start: 06-07-2027 Lipid panel [facility] Start: 02-17-2027 Diabetes Screening Diabetes Screenin g [facility] Start: 10-28-2025 Diabetes Screening Diabetes Screenin g [facility] Start: 07-08-2025 BP Controlled (<130/80) BP Controlle d (<130/80) [facility] Start: 01-13-2025 End: 01-13-2025 Patient encounter procedure 01/13/2025 11:30 AM EDT Office Visit Neurology [address] [place] [id number] Chhaya Saldana MD [address] [place], [place] [id number] 6 month follow up Neurology Comment on above: 6 month follow up Start: 06-15-2024 BP Controlled (<130/80) BP Controlle d (<130/80) [facility] Start: 04-09-2024 End: 04-09-2024 Patient encounter procedure 04/09/2024 2:15 PM EST Appointment [facility] [place] [address] Danielle Arreola DPM [address] [place] [address] [facility] [place] Start: 03-20-2024 End: 03-20-2024 Patient encounter procedure 03/20/2024 10:30 AM EST Appointment [facility] [place] [address] Julissa Taylor, DO [address], [place] [id number] [facility] [place] Start: 03-13-2024 End: 03-13-2024 Patient encounter procedure 03/13/2024 2:30 PM EST Appointment [facility] [place] [address] [place] [address] Julissa Taylor, DO [address], [place] [phone] [facility] [place] Start: 03-06-2024 End: 03-06-2024 Patient encounter procedure 03/06/2024 10:30 AM EST Appointment [facility] [place] [address] Julissa Taylor, DO [address], [place] [phone] [facility] [place] Start: 02-28-2024 End: 02-28-2024 Patient encounter procedure 02/28/2024 10:30 AM EST Appointment [facility] [place] [address] [place] [address] Julissa Taylor, DO [address], [place] [address] [facility] [place] Start: 02-21-2024 End: 02-21-2024 Patient encounter procedure 02/21/2024 9:45 AM EST Appointment [facility] [place] [address] [place] [address] Julissa Taylor, DO [address], [place] [id number] [facility] [place] Start: 02-14-2024 End: 02-14-2024 Patient encounter procedure 02/14/2024 8:45 AM EST Appointment [facility] [address] [place] [address] Julissa Taylor, DO [address], [place] [address] [facility] [place] Start: 02-07-2024 End: 02-07-2024 Patient encounter procedure 02/07/2024 8:45 AM EDT Appointment [facility] [address] [place] [address] Julissa Taylor, DO [address], [place] [address] [facility] [place] Start: 01-31-2024 End: 01-31-2024 Patient encounter procedure 01/31/2024 8:45 AM EDT Appointment [facility] [place] [address] [place] [address] Julissa Taylor, DO [address], [place] [address] [facility] [place] Start: 01-24-2024 End: 01-24-2024 Patient encounter procedure 01/24/2024 10:00 AM EDT Appointment [facility] [place] [address] [place] [address] Julissa Taylor, DO [address], [place] [address] [facility] [place] Start: 01-17-2024 End: 01-17-2024 Patient encounter procedure 01/17/2024 9:45 AM EDT Appointment [facility] [place] [address] [place] [address] Julissa Taylor, DO [address], [place] [phone] [facility] [place] Start: 01-10-2024 End: 01-10-2024 Patient encounter procedure 01/10/2024 9:15 AM EDT Appointment [facility] [place] [address] [place] [address] Julissa Taylor, DO [address], [place] [phone] [facility] [place] Start: 01-03-2024 End: 01-03-2024 Patient encounter procedure 01/03/2024 3:15 PM EDT Appointment [facility] [place] [address] [place] [address] Julissa Taylor, DO [address], [place] [phone] [facility] [place] Start: 12-27-2023 End: 12-27-2023 Patient encounter procedure 12/27/2023 2:45 PM EDT Appointment [facility] [place] [address] [place] [address] Julissa Taylor, DO [address], [place] [phone] [facility] [place] Start: 12-20-2023 End: 12-20-2023 Patient encounter procedure 12/20/2023 11:00 AM EDT Appointment [facility] [address] [place] [address] Julissa Taylor, DO [address], [place] [phone] [facility] Start: 12-13-2023 End: 12-13-2023 Patient encounter procedure 12/13/2023 11:00 AM EDT Appointment [facility] [address] [address] Julissa Taylor, DO [address], [place] [phone] [facility] Start: 12-10-2023 COVID-19 Vaccine ( season) COVID-19 Vaccine ( season) [facility] Start: 12-10-2023 COVID-19 Vaccine ( season) COVID-19 Vaccine ( season) [facility] Start: 12-10-2023 Influenza vaccination [facility] Start: 12-06-2023 End: 12-06-2023 Patient encounter procedure 12/06/2023 10:30 AM EDT Appointment [facility] [address] [place] [address] Julissa Taylor, DO [address], [place] [phone] [facility] Start: 11-29-2023 End: 11-29-2023 Patient encounter procedure 11/29/2023 10:15 AM EDT Appointment [facility] [address] [place] [address] Julissa Taylor, DO [address], [place] [phone] [facility] Start: 11-17-2023 End: 11-17-2023 Patient encounter procedure 11/17/2023 10:30 AM EDT Appointment [facility] [address] [place] [address] [facility] Start: 11-15-2023 End: 11-15-2023 Patient encounter procedure 11/15/2023 10:45 AM EDT Appointment [facility] [address] [place] [address] Julissa Taylor, DO [address] [facility] [place] [place] [address] [facility] Start: 11-08-2023 End: 11-08-2023 Patient encounter procedure 11/08/2023 9:30 AM EDT Appointment [facility] [address] [place] [address] Julissa Taylor, DO [address] [facility], [place] [phone] [facility] Start: 11-01-2023 End: 11-01-2023 Patient encounter procedure 11/01/2023 8:30 AM EDT Appointment [facility] [address] [place] [address] Julissa Taylor, DO [address] [facility] [place] [address] [facility] Start: 10-25-2023 End: 10-25-2023 Patient encounter procedure 10/25/2023 8:30 AM EDT Appointment [facility] [address] [place] [address] Julissa Taylor, DO [address] [facility] [place] [address] [facility] Start: 10-18-2023 End: 10-18-2023 Patient encounter procedure 10/18/2023 10:15 AM EDT Appointment [facility] [address] [place] [address] Julissa Taylor, DO [address] [facility], [place] [address] [facility] Start: 10-11-2023 End: 10-11-2023 Patient encounter procedure 10/11/2023 8:45 AM EDT Appointment [facility] [address] [place] [address] Julissa Taylor, DO [address] [place], [place] [address] [facility] Start: 10-04-2023 End: 10-04-2023 Patient encounter procedure 10/04/2023 1:45 PM EDT Appointment [facility] [address] [place] [address] Julissa Taylor, DO [address] [place], [place] [address] [facility] Start: 09-27-2023 End: 09-27-2023 Patient encounter procedure 09/27/2023 1:15 PM EDT Appointment [facility] [address] [place] [address] Julissa Taylor, DO [address] [facility] [place] [address] [facility] Start: 09-20-2023 End: 09-20-2023 Patient encounter procedure 09/20/2023 2:15 PM EDT Appointment [facility] [address] [place] [address] Julissa Taylor, DO [address] [facility], [place] [phone] [facility] Start: 09-13-2023 End: 09-13-2023 Patient encounter procedure 09/13/2023 2:00 PM EDT Appointment [facility] [address] [place] [address] Julissa Taylor, DO [address] [place], [place] [phone] [facility] Start: 09-06-2023 End: 09-06-2023 Patient encounter procedure 09/06/2023 9:30 AM EDT Appointment [facility] [address] [place] [address] Julissa Taylor, DO [address] [place] [address] [facility] Start: 08-30-2023 End: 08-30-2023 Patient encounter procedure 08/30/2023 9:30 AM EDT Appointment [facility] [address] [place] [address] Julissa Taylor, DO [address] [place] [address] [facility] Start: 07-16-2023 Urine culture Urine Culture [facility] Start: 07-16-2023 [facility] Start: 06-23-2023 Diabetes mellitus screening [facility] Start: 06-19-2023 LIPID SCREEN LIPID SCREEN [facility] Start: 04-10-2023 Medicare Community Health Annual Wellness Visit Medicare Advantage Annual Wellness Visit [facility] Start: 01-22-2023 DIABETES SCREEN DIABETES SCREEN [facility] Start: 12-12-2022 Depression Monitoring Depression Mon itoring [facility] Start: 12-12-2022 Depresssion Monitoring Depresssion M onitoring [facility] Start: 12-09-2022 COVID-19 Vaccine ( season) COVID-19 Vaccine ( season) [facility] Start: 12-09-2022 Influenza vaccination [facility] Start: 2022 RSV Immunization age d 60 or older (1 - 1-dose 60+ series) RSV Immunization aged 60 or older (1 - 1-dose 60+ series) [facility] Start: 2022 RSV Immunization for Adults (1 - Risk 60-74 years 1-dose series) RSV Immunization for Adults (1 - Risk 60-74 years 1-dose series) [facility] Start: 2022 RSV Vaccine (1 - 1-d ose 60+ series) RSV Vaccine (1 - 1-dose 60+ series) [facility] Start: 11-16-2022 End: 11-16-2022 Patient encounter procedure [facility] Start: 11-02-2022 End: 11-02-2022 Admission to same day surgery center 11/02/2022 Surgery Procedural Brady Powell MD [address] [place] [address] LAPAROSCOPIC CHOLECYSTECTOMY, POSSIBLE OPEN [98146 (CPT )] [facility] MAIN OR Comment on above: LAPAROSCOPIC CHOLECY STECTOMY, POSSIBLE OPEN [54028 (CPT )] Start: 11-02-2022 End: 11-02-2022 Laparoscopy surg cholecystectomy [facility] Operating Room Start: 11-02-2022 Subsequent hospital visit by physician 11/02/2022 Hospital Encounter Procedural Brady Powell MD [address] [place], [place] [phone] [facility] MAIN OR Start: 11-01-2022 End: 11-01-2022 Admission to same day surgery center 11/01/2022 Surgery Procedural Brady Powell MD [address] [place], [place] [phone] LAPAROSCOPIC CHOLECYSTECTOMY, POSSIBLE OPEN [75585 (CPT )] [facility] MAIN OR Comment on above: LAPAROSCOPIC CHOLECY STECTOMY, POSSIBLE OPEN [20696 (CPT )] Start: 11-01-2022 End: 11-01-2022 Laparoscopy surg cholecystectomy LAPAROSCOPIC CHOLECYSTECTOMY Calculus of gallbladder without cholecystitis without obstruction Acute pancreatitis without necrosis or infection, unspecified Epigastric pain 11/01/2022 7:30 AM EDT [facility] Operating Room Start: 11-01-2022 Subsequent hospital visit by physician 11/01/2022 Hospital Encounter Procedural Brady Powell MD [address] [place] [address] [facility] MAIN OR Start: 10-28-2022 End: 10-28-2022 Admission to same day surgery center 10/28/2022 8:30 AM EDT - 10/28/2022 10:00 AM EDT Surgery [facility] MAIN OR [address] [facility] [place] [address] Brady Powell MD [address] [place] [address] LAPAROSCOPIC CHOLECYSTECTOMY, POSSIBLE OPEN [96878 (CPT )] [facility] MAIN OR Comment on above: LAPAROSCOPIC CHOLECY STECTOMY, POSSIBLE OPEN [57328 (CPT )] Start: 10-28-2022 End: 10-28-2022 Anesthesia consultation 10/28/2022 8:30 AM EDT Anesthesia Event [facility] MA[facility] OR [address] [place] [address] Jennie Chamorro [employer] [address] [place] [address] [facility] OR Start: 10-28-2022 End: 10-28-2022 Laparoscopy surg cholecystectomy LAPAROSCOPIC CHOLECYSTECTOMY Calculus of gallbladder without cholecystitis without obstruction Acute pancreatitis without necrosis or infection, unspecified Epigastric pain 10/28/2022 8:30 AM EDT [facility] Operating Room Start: 10-28-2022 Subsequent hospital visit by physician 10/28/2022 6:30 AM EDT Hospital Encounter [facility] [address] [place] [address] Brady Powell MD [address] [place] [address] [address] [place] [address] [facility] Start: 10-26-2022 End: 10-26-2022 Patient encounter procedure [facility] CT Start: 10-26-2022 End: 10-26-2022 Admission to establishment [facility] Pre-Admit Testing Start: 10-14-2022 End: 10-15-2023 Hepatic function 2000 panel - Serum or Plasma Hepatic function panel Lab Routine Preop testing Expected: 10/14/2022 (Approximate), Expires: 10/15/2023 [employer] Work Phone: Comment on above: Expected: 10/14/2022 (Approximate), Expires: 10/15/2023 Start: 07-29-2022 End: 07-30-2023 Amylase [Enzymatic activity/volume] in Serum or Plasma Amylase Lab Routine Calculus of gallbladder without cholecystitis without obstruction Peripancreatic abscess Expected: 07/29/2022 (Approximate), Expires: 07/30/2023 [facility] Work Phone: Comment on above: Expected: 07/29/2022 (Approximate), Expires: 07/30/2023 Start: 07-29-2022 End: 07-30-2023 Creatinine [Mass/volume] in Serum or Plasma Creatinine, Serum Lab Routine Calculus of gallbladder without cholecystitis without obstruction Peripancreatic abscess Expected: 07/29/2022 (Approximate), Expires: 07/30/2023 [facility] [employer] Comment on above: Expected: 07/29/2022 (Approximate), Expires: 07/30/2023 Start: 07-29-2022 End: 07-30-2023 CT Abdomen and Pelvis W contrast IV CT abdomen pelvis w contrast Imaging Routine Calculus of gallbladder without cholecystitis without obstruction Peripancreatic abscess Expected: 07/29/2022, Expires: 07/30/2023 [facility] [employer] Comment on above: Expected: 07/29/2022 , Expires: 07/30/2023 Start: 07-29-2022 End: 07-30-2023 Hepatic function 2000 panel - Serum or Plasma Hepatic function panel Lab Routine Calculus of gallbladder without cholecystitis without obstruction Peripancreatic abscess Expected: 07/29/2022 (Approximate), Expires: 07/30/2023 [facility] [employer] Comment on above: Expected: 07/29/2022 (Approximate), Expires: 07/30/2023 Start: 07-29-2022 End: 07-30-2023 Lipase [Enzymatic activity/volume] in Serum or Plasma Lipase Lab Routine Calculus of gallbladder without cholecystitis without obstruction Peripancreatic abscess Expected: 07/29/2022 (Approximate), Expires: 07/30/2023 [facility] [employer] Comment on above: Expected: 07/29/2022 (Approximate), Expires: 07/30/2023 Start: 07-29-2022 End: 07-29-2022 Patient encounter procedure 07/29/2022 Office Visit General Surgery Brady Powell MD [address] [place] [address] [address] [place] [address] [facility] Start: 12-09-2021 Influenza vaccination [facility] Start: 12-09-2021 [facility] Start: 05-24-2021 Annual Wellness Visi t (AWV) Annual Wellness Visit (AWV) [facility] Start: 02-18-2021 Creatinine measurement [facility] Start: 02-18-2021 Potassium [Moles/vol ume] in Serum or Plasma Potassium [facility] Start: 02-18-2021 Potassium monitoring Potassium monit oring [facility] Start: 02-18-2021 ZZPotassium ZZPotassium [facility] Start: 12-09-2020 Influenza vaccination Flu vaccine (# 1) [facility] Start: 04-05-2020 Creatinine measurement Creatinine mo [facility]itoring [facility] [place] Start: 04-05-2020 Potassium monitoring Potassium monit oring [facility] [place] Start: 12-10-2019 Influenza vaccination [facility] [place] Start: 12-09-2018 Influenza vaccination Flu vaccine (# 1) [facility] Work Phone: Start: 2017 PROSTATE CANCER SCREENING DISCUSSION PROSTATE CANCER SCREENING DISCUSSION [facility] Start: 2017 Prostate specific antigen measurement Prostate Cancer Screening Discussion [facility] Start: 07-11-2015 Pneumococcal Vaccine : 50+ Years (2 of 2 - PCV) Pneumococcal Vaccine: 50+ Years (2 of 2 - PCV) [facility] Start: 07-11-2015 Pneumococcal Vaccine : Pediatrics (0 to 5 Years) and At-Risk Patients (6 to 64 Years) (2 - PCV) Pneumococcal Vaccine: Pediatrics (0 to 5 Years) and At-Risk Patients (6 to 64 Years) (2 - PCV) [facility] Start: 07-11-2015 Pneumococcal Vaccine : Pediatrics (0 to 5 Years) and At-Risk Patients (6 to 64 Years) (2 of 2 - PCV) Pneumococcal Vaccine: Pediatrics (0 to 5 Years) and At-Risk Patients (6 to 64 Years) (2 of 2 - PCV) [facility] Start: 07-11-2015 [facility] Start: 2012 Screening for malign ant neoplasm of colon [facility] Start: 2012 Shingles Vaccine (1 of 2) Shingles Vaccine (1 of 2) [facility] Start: 2012 SHINGRIX VACCINE (1 of 2) SHINGRIX VACCINE (1 of 2) [facility] Start: 2012 Zoster Vaccines (1 of 2) Zoster Vacc yana (1 of 2) [facility] Start: 2012 [facility] Start: 12-05-2007 Screening for malign ant [facility]oplasm [facility] [facility] Start: 2002 Prostate specific antigen measurement Prostate Specific Antigen (PSA) Screening or Monitoring [facility] Start: 1981 Urine microalbumin profile DTAP,TDAP,TD (1 - Tdap) [facility] Start: 1980 ANNUAL PCP TEAM NETWORK DEVELOPMENT COORDINATOR ALIZA DISEASE VISIT ANNUAL PCP TEAM CHRONIC DISEASE VISIT [facility] Start: 1980 Anxiety Screening Anxiety Screening [facility] Start: 1980 BP CONTROLLED (<130/80) BP CONTROLLE D (<130/80) [facility] Start: 1980 HEPATITIS C SCREENING HEPATITIS C SC REENING [facility] Start: 1980 Hepatitis C screening [facility] Start: 1980 HIV SCREENING HIV SCREENING [facility] Start: 1980 HIV screening HIV Screening [facility] Start: 1978 COVID-19 Vaccine (1) COVID-19 Vaccin e (1) [facility] Work Phone: Start: 1977 HIV screening HIV screen [facility] Start: 1974 Depression Screen Depression Screen [facility] Start: 1974 Depresssion Monitoring Depresssion M onitoring [facility] Start: 1972 Lipid panel [facility] Start: 12-05-1967 COVID-19 Vaccine (1) COVID-19 Vaccin e (1) [facility] Start: 12-05-1963 MMR Vaccines (1 of 1 - Standard series) MMR Vaccines (1 of 1 - Standard series) [facility] Start: 12-05-1963 [facility] Start: 06-06-1963 COVID-19 Vaccine (#1) COVID-19 Vacci ne (#1) [facility] Start: 06-06-1963 [facility] Start: 1962 Annual Wellness Visi t (AWV) Annual Wellness Visit (AWV) [facility] Start: 1962 Hepatitis B Vaccines (1 of 3 - 3-dose series) Hepatitis B Vaccines (1 of 3 - 3-dose series) [facility] Start: 1962 Hepatitis C screening Hepatitis C sc reen [facility] Start: 1962 HIV screening [facility] Start: 1962 Screening for malign ant neoplasm of colon [facility] Start: 1962 [facility] End: 06-22-2023 Aerobic and Anaerobic Culture with Stain [facility] Work Phone: Comment on above: Once (Lab) for 1 Occ urrences starting 06/22/2023 until 06/22/2023 Bacteria identified in Blood by Culture [facility] Bacteria identified in Unspecified specimen by Aerobe culture Culture, Aerobic Bacteria with Gram Stain Microbiology STAT 06/22/2023 11:11 PM EDT [facility] End: 06-22-2023 Bacteria identified in Unspecified specimen by Anaerobe culture [facility] Comment on above: Once for 1 Occurrenc es starting 06/22/2023 until 06/22/2023 End: 10-26-2022 CT Abdomen and Pelvis W contrast IV [facility] Work Phone: Comment on above: Once for 1 Occurrenc es starting 10/26/2022 until 10/26/2022 Dressing Order: Calc ium alginate (R leg); Weekly; Adaptic (multiple sizes); (Profore light) [facility] Work Phone: Comment on above: Ordered: 11/22/2023 Dressing Order: Calc ium alginate; 4x4 gauze, ABDs; Kerlex, Paper tape; Double Layer tubigrip Dressing Order: Calcium alginate; 4x4 gauze, ABDs; Kerlex, Paper tape; Double Layer tubigrip Wound Ostomy Routine Ordered: 11/08/2023 [facility] Work Phone: Comment on above: Ordered: 11/08/2023 Dressing Order: Calc ium alginate; Daily; 4x4 gauze ([place] Blue); Kerlex, Paper tape [facility] Work Phone: Comment on above: Ordered: 01/17/2024 Dressing Order: Calc ium alginate; Daily; 4x4 gauze, ABDs; Kerlex, Paper tape [facility] Work Phone: Comment on above: Ordered: 12/06/2023 Dressing Order: Calc ium alginate; Daily; 4x4 gauze, ABDs; Kerlex, Paper tape [facility] Work Phone: Comment on above: Ordered: 12/20/2023 Dressing Order: Calc ium alginate; Daily; ABDs; Kerlex, Paper tape [facility] Work Phone: Comment on above: Ordered: 11/29/2023 Dressing Order: Calc ium alginate; Daily; ABDs; Kerlex, Paper tape [facility] Work Phone: Comment on above: Ordered: 12/13/2023 Dressing Order: Calc ium alginate; Daily; ABDs; Kerlex, Paper tape [facility] Work Phone: Comment on above: Ordered: 01/31/2024 Dressing Order: Calc ium alginate; Daily; ABDs; Kerlex, Paper tape Dressing Order: Calcium alginate; Daily; ABDs; Kerlex, Paper tape Wound Ostomy Routine 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) Peripheral venous insufficiency [I87.2] Ordered: 03/27/2024 [facility] Work Phone: Comment on above: Ordered: 03/27/2024 Dressing Order: Calc ium alginate; Weekly; (profore lite) [facility] Work Phone: Comment on above: Ordered: 11/15/2023 Dressing Order: Calc ium alginate; Weekly; 4x4 gauze; Multilayer compression wrap 3 layers [facility] Work Phone: Comment on above: Ordered: 03/06/2024 Dressing Order: Calc ium alginate; Weekly; Kerlex, Silk tape; Multilayer compression wrap 3 layers, Unna boot Dressing Order: Calcium alginate; Weekly; Kerlex, Silk tape; Multilayer compression wrap 3 layers, Unna boot Wound Ostomy Routine Ordered: 10/11/2023 [facility] Work Phone: Comment on above: Ordered: 10/11/2023 Dressing Order: Calc ium alginate; Weekly; Multilayer compression wrap 3 layers (Profore lite) [facility] Work Phone: Comment on above: Ordered: 01/10/2024 Dressing Order: Calc ium alginate; Weekly; Multilayer compression wrap 3 layers (Profore lite) [facility] Work Phone: Comment on above: Ordered: 01/24/2024 Dressing Order: Calc ium alginate; Weekly; Multilayer compression wrap 3 layers (profore lite) [facility] Work Phone: Comment on above: Ordered: 02/07/2024 Dressing Order: Calc ium alginate; Weekly; Multilayer compression wrap 3 layers (Profore lite) [facility] Work Phone: Comment on above: Ordered: 02/28/2024 Dressing Order: Christa agen Ag, Calcium Alginate AG; Weekly; Hydralock pads (multiple sizes); Kerlex, Silk tape; Multilayer compression wrap 3 layers (cover toes), Unna boot Dressing Order: Collagen Ag, Calcium Alginate AG; Weekly; Hydralock pads (multiple sizes); Kerlex, Silk tape; Multilayer compression wrap 3 layers (cover toes), Unna boot Wound Ostomy Routine Ordered: 08/23/2023 [facility] Work Phone: Comment on above: Ordered: 08/23/2023 Dressing Order: Christa agen Ag, Calcium alginate; 4x4 gauze; Kerlex, Silk tape; Multilayer compression wrap 3 layers, Unna boot Dressing Order: Collagen Ag, Calcium alginate; 4x4 gauze; Kerlex, Silk tape; Multilayer compression wrap 3 layers, Unna boot Wound Ostomy Routine Ordered: 09/28/2023 [facility] Work Phone: Comment on above: Ordered: 09/28/2023 Dressing Order: Christa agen Ag, Calcium alginate; Hydralock pads (multiple sizes); Kerlex; Unna boot, Multilayer compression wrap 3 layers Dressing Order: Collagen Ag, Calcium alginate; Hydralock pads (multiple sizes); Kerlex; Unna boot, Multilayer compression wrap 3 layers Wound Ostomy Routine Ordered: 09/06/2023 [facility] Work Phone: Comment on above: Ordered: 09/06/2023 Dressing Order: Christa agen Ag, Calcium alginate; Weekly; 4x4 gauze, Hydralock pads (multiple sizes); Kerlex, Silk tape; Unna boot, Multilayer compression wrap 3 layers Dressing Order: Collagen Ag, Calcium alginate; Weekly; 4x4 gauze, Hydralock pads (multiple sizes); Kerlex, Silk tape; Unna boot, Multilayer compression wrap 3 layers Wound Ostomy Routine Ordered: 09/13/2023 [facility] Work Phone: Comment on above: Ordered: 09/13/2023 Dressing Order: Christa agen Ag, Calcium alginate; Weekly; 4x4 gauze; Kerlex, Silk tape; Multilayer compression wrap 3 layers, Unna boot Dressing Order: Collagen Ag, Calcium alginate; Weekly; 4x4 gauze; Kerlex, Silk tape; Multilayer compression wrap 3 layers, Unna boot Wound Ostomy Routine Ordered: 08/30/2023 [facility] Work Phone: Comment on above: Ordered: 08/30/2023 Dressing Order: Christa agen Ag, Calcium alginate; Weekly; 4x4 gauze; Kerlex; Unna boot, Multilayer compression wrap 3 layers Dressing Order: Collagen Ag, Calcium alginate; Weekly; 4x4 gauze; Kerlex; Unna boot, Multilayer compression wrap 3 layers Wound Ostomy Routine Ordered: 10/04/2023 [facility] Work Phone: Comment on above: Ordered: 10/04/2023 Dressing Order: Christa agen Ag; Weekly; (calcium alginate); Kerlex, Silk tape; Multilayer compression wrap 3 layers (cover toes), Unna boot Dressing Order: Collagen Ag; Weekly; (calcium alginate); Kerlex, Silk tape; Multilayer compression wrap 3 layers (cover toes), Unna boot Wound Ostomy Routine Ordered: 09/20/2023 [facility] Work Phone: Comment on above: Ordered: 09/20/2023 Dressing Order: Collagen, Calcium alginate; Daily; ABDs; Kerlex, Paper tape [facility] Work Phone: Comment on above: Ordered: 02/14/2024 Dressing Order: Hydrafera blue/Dermablue; Daily; Sorbex; Kerlex, Paper tape; Single layer tubigrip [facility] Work Phone: Comment on above: Ordered: 11/01/2023 Dressing Order: Hydrafera blue/Dermablue; Weekly; Sorbex, 4x4 gauze; Kerlex, Paper tape; Unna boot, Multilayer compression wrap 3 layers Dressing Order: Hydrafera blue/Dermablue; Weekly; Sorbex, 4x4 gauze; Kerlex, Paper tape; Unna boot, Multilayer compression wrap 3 layers Wound Ostomy Routine Ordered: 10/25/2023 [facility] Work Phone: Comment on above: Ordered: 10/25/2023 Dressing Order: Soap & water; Calcium alginate; Every other day; Sorbex; Kerlex, Paper tape; Surepress Dressing Order: Soap & water; Calcium alginate; Every other day; Sorbex; Kerlex, Paper tape; Surepress Wound Ostomy Routine Ordered: 10/18/2023 [facility] Work Phone: Comment on above: Ordered: 10/18/2023 Dressing Order: Week ly; (Profore lite) [facility] Work Phone: Comment on above: Ordered: 01/03/2024 OUTSIDE PROCEDURE SCAN OUTSIDE P ROCEDURE SCAN Procedures Ordered: 10/24/2022 [facility] Comment on above: Ordered: 10/24/2022 [facility] c Immunizations Immunization Date Immunization Notes Care Provider Fa [facility] 01-17-2024 COVID-19 vaccine, ag e 12+ yr (PFIZER-BIONTECH COMIRNATY) Chhaya Saldana MD Work Phone: [facility] 01-09-2024 influenza, seasonal, injectable, preservative free Chhaya Saldana MD Work Phone: [facility] 06-09-2023 respiratory syncytia l virus (RSV) vaccine, bivalent (ABRYSVO) Chhaya Saldana MD Work Phone: [facility] 03-13-2023 COVID-19 vaccine, ag e 12+ yr (PFIZER-BIONTECH COMIRNATY) Chhaya Saldana MD Work Phone: [facility] 01-09-2023 influenza, injectabl e, quadrivalent, preservative free Chhaya Saldana MD Work Phone: [facility] 08-05-2022 pneumococcal conjuga te (PCV20) vaccine, 20 valent (PREVNAR 20) Chhaya Saldana MD Work Phone: [facility] 01-14-2022 COVID-19 vaccine, ag e 12+ yr, bivalent (PFIZER-BIONTECH) Chhaya Saldana MD Work Phone: [facility] 01-14-2022 influenza, injectabl e, quadrivalent, preservative free Chhaya Saldana MD Work Phone: [facility] 01-28-2021 COVID-19 original vaccine, age 12+ yr, monovalent (PFIZER-BIONTECH - PURPLE TOP) Chhaya Saldana MD Work Phone: [facility] 01-12-2021 influenza, injectabl e, quadrivalent, preservative free Chhaya Saldana MD Work Phone: [facility] 06-26-2020 diphtheria, tetanus toxoids and acellular pertussis vaccine, unspecified formulation Loki CORTES Work Phone: 06-26-2020 tetanus toxoid, redu joelle diphtheria toxoid, and acellular pertussis vaccine, adsorbed Loki CORTES 05-06-2020 COVID-19 original vaccine, age 12+ yr, monovalent (PFIZER-BIONTECH - PURPLE TOP) Chhaya Saldana MD Work Phone: [facility] 04-15-2020 COVID-19 original vaccine, age 12+ yr, monovalent (PFIZER-BIONTECH - PURPLE TOP) Chhaya Saldana MD Work Phone: [facility] 03-11-2015 influenza, injectabl e, quadrivalent, preservative free Chhaya Saldana MD Work Phone: [facility] 07-10-2014 pneumococcal polysaccharide vaccine, 23 valent Margaret Christopher [facility] 02-04-2014 influenza, seasonal, injectable, preservative free Chhaya Saldana MD Work Phone: [facility] Payers Date Payer Category Payer Self-pay [id number] 2021 Medicaid [facility] MEDICA[facility] ONLY [id number] 2021 Medicare [id number] 2021 Medicare (Managed Care) [facility] MEDICARE [id number] 2021 Medicare [facility] MEDIC[facility] [id number] 2021 Unknown ROBBIN KELLER EXCHANGE [id number] 2021-Present [address] [place] [address] Exchange Plan [id number] 2021 Medicare [id number] 2021 Unknown [id number] 2021 Medicaid [id number] 2014 Private Health Insurance NICCIDOT Marvin ÁNGEL [address] [id number] 2014-Present Indemnity [id number] 2014 Medicare [id number] 1985 Medicare MEDICARE MEDICAR E A AND B [id number] 1985-Present [place] Medicare [id number] Unknown [id number] Unknown [id number] Unknown [id number] Unknown [id number] Unknown [id number] Unknown [id number] Unknown [id number] Unknown [id number] Social History Date Type Detail Facility Start: 04-05-2019 End: 02-19-2020 Tobacco smoking status NHIS Unknown if ever smoked [facility] Start: 02-19-2020 End: 07-08-2024 Tobacco use and exposure [facility] Start: 02-19-2020 End: 04-09-2024 Alcohol intake Lifetime non-drinker (finding) [facility] Start: 02-19-2020 End: 06-08-2022 History SDOH Alcohol Frequency 1 [place], [place] Start: 1960 Sex Assigned At Not on file [employer] Phone: Start: 05-28-2022 End: 11-17-2022 Exposure to SARS-CoV-2 (event) Not sure [facility] Start: 01-21-2020 End: 07-08-2024 Tobacco smoking status NHIS Former smoker [facility] End: 04-10-1982 History of tobacco use Current smoker [facility] Start: 01-21-2020 End: 07-08-2024 Alcohol intake Current non-drinker of alcohol (finding) [facility] Start: 1960 Sex Assigned At Male [facility] Start: 06-08-2022 Tobacco smoking stat us OHIS Never smoked tobacco [facility] Start: 06-08-2022 History SDOH Alcohol Std Drinks 0 [facility] [employer] Start: 06-08-2022 History SDOH IPV Fear 2 [facility] [employer] [facility] End: 04-10-1982 History of tobacco use Cigarette Smoker [facility] Start: 03-17-2020 End: 06-08-2022 History of Social function [facility] Start: 03-17-2020 End: 06-08-2022 Humiliation, Afraid, Rape, and Kick questionnaire [HARK] [facility] Within the last year , have you been afraid of your partner or ex-partner? No [facility] How often to you hav e a drink containing alcohol? [facility] How many standard dr inks containing alcohol do you have on a typical day? Patient does not drink [facility] [employer] [facility] Start: 11-08-2021 End: 07-26-2024 Sex Male (finding) [facility] Functional Status Date Assessment Result Facility 01-27-2020 Are you deaf, or do you have serious difficulty hearing No 01/27/2020 11:07 AM Alicia Joseph, SO No [facility] 01-27-2020 Are you blind, or do you have serious difficulty seeing, even when wearing glasses No 01/27/2020 11:07 AM Alicia Joseph, SO No [facility] 01-27-2020 Do you have serious difficulty walking or climbing stairs No 01/27/2020 11:07 AM Alicia Joseph, SO No [facility] 01-27-2020 Do you have difficul ty dressing or bathing No 01/27/2020 11:07 AM Alicia Joseph, SO No [facility] 01-27-2020 Because of a physica l, mental, or emotional condition, do you have difficulty doing errands alone such as visiting a physician's office or shopping No 01/27/2020 11:07 AM Alicia Joseph, SO No [facility] Mental Status Date Assessment Result Facility 01-27-2020 Because of a physica l, mental, or emotional condition, do you have serious difficulty concentrating, remembering, or making decisions No 01/27/2020 11:07 AM Alicia Joseph, SO No [facility] Clinical Notes 06-07-2022 to 07-08-2024 Patient [...] with other medications. documented in this encounter [facility] 07-08-2024 Note HNO ID: [id number] Author: CHHAYA SALDANA MD Service: ? Author [...] (sleep) - Aimovig 140 mg monthly - Griswold 5 mg q8hrs PRN pain (takes around [...] 10 mg t (more content not included)... 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 Patchy areas of low attenuation subcortical and periventricular white matter are nonspecific but unchanged. These most likely reflects sequela of chronic small vessel ischemic changes. Parenchyma: Mild diffuse brain volume loss is unchanged. The brain parenchyma is otherwise within normal limits for age." Previous available neuro evaluations: - Dr. Recinos [...] Discussed with Patient: n/a Chhaya Saldana MD [facility] Neurology documented in this encounter [facility] 04-09-2024 History of Present illness Narrative [...] Test Results/Process Orders 10 [x] Staff telephones [facility], Nursing Homes/Clarify Orders 10 [] Routine Transfer [...] or more Points) documented in this encounter [facility] 04-09-2024 Hospital Discharge instructions Giuliana Radofrd RN - 04/09/2024 2:15 PM EST Ordered treatment completed and patient is healed. Patient discharged without any issues. All questions answered. Call the clinic if your wound reopens or a new wound appears at [phone] documented in this encounter [facility] 03-27-2024 History of Present illness Narrative Images from the original note were not included. [facility] Wound Care Progress Note CHIEF COMPLAINT: [...] Test Results/Process Orders 10 [] Staff telephones [facility], Nursing Homes/Clarify Orders 10 [x] Routine Transfer [...] or more Points) documented in this encounter [facility] 03-27-2024 History of Present illness Narrative Images from the original note were not included. [facility] Wound Care Progress Note CHIEF COMPLAINT: [...] 100 03/27/24 1516 Drainage Description Serosanguineous 03/27/24 151 Odor None [...] Test Results/Process Orders 10 [] Staff telephones [facility], Nursing Homes/Clarify Orders 10 [x] Routine Transfer [...] or more Points) documented in this encounter [facility] 03-27-2024 Hospital Discharge instructions Giuliana Radford RN - 03/27/2024 3:00 PM EST Return Appointment in: 1 week - Should you experience any significant changes in your wound(s) or have any questions regarding your home care instructions please contact the wound center at [phone] If after regular business hours, please call [...] help with wound healing Nursing Care Facility: [facility] Bilateral legs resolved-Facility closed week Facility opened [...] daily and PRN. documented in this encounter [facility] 03-27-2024 Hospital Discharge instructions Giuliana Radford RN - 03/27/2024 3:00 PM EST Return Appointment in: 1 week - Should you experience any significant changes in your wound(s) or have any questions regarding your home care instructions please contact the wound center at [phone] If after regular business hours, please call [...] help with wound healing Nursing Care Facility: [facility] Bilateral legs resolved-Facility closed week Facility opened [...] daily and PRN. documented in this encounter [facility] 03-27-2024 Miscellaneous Notes Encounter addended by: Marycarmen Corona RN on: 03/28/2024 9:26 AM Actions taken: LDA properties accepted documented in this encounter [facility] 03-27-2024 Note Encounter addended b y: Marycarmen Corona RN on: 03/28/2024 9:26 AM Actions taken: LDA properties accepted [facility] 03-27-2024 Note [facility] Wound Care Progress Note CHIEF COMPLAINT: [...] 100 03/27/24 1516 Drainage Description Serosanguineous 03/27/24 151 Odor None 03/27/24 151 Drainage Amount Scant 03/27/24 1516 Treatments Cleansed [...] with plan. Please see attached Discharge Instructions [facility] 03-20-2024 Note [facility] Wound Care Progress Note CHIEF COMPLAINT: [...] with plan. Please see attached Discharge Instructions [facility] 03-13-2024 Hospital Discharge instructions Giuliana Radford RN - 03/13/2024 2:30 PM EST Return Appointment in: 1 week - Should you experience any significant changes in your wound(s) or have any questions regarding your home care instructions please contact the wound center at [phone] If after regular business hours, please call [...] help with wound healing Nursing Care Facility: [facility] Wound Treatment to R toes- Daily Cleanse [...] daily and PRN. documented in this encounter [facility] 03-13-2024 Note [facility] Wound Care Progress Note CHIEF COMPLAINT: [...] - third Right;Dorsal (Active) Wound Image 03/13/24 1416 Site Assessment Dry 03/13/24 1416 Carine-Wound Assessment Dry;Intact 03/13/24 1416 Wound Length (cm) 0.1 cm 03/13/24 141 Wound Width (cm) 0.1 cm 03/13/24 1416 Wound Surface Area (cm^2) 0.01 cm^2 03/13/24 1416 Wound Depth (cm) 0.1 cm 03/13/24 1416 Wound Volume (cm^3) 0.001 cm^3 03/13/24 1416 Wound Healing % 99 03/13/24 1416 Drainage Description Serosanguineous 03/13/24 1416 Odor None 03/13/24 1416 Drainage Amount Scant 03/13/24 1416 Treatments Cleansed 03/13/24 1416 Primary Dressing Calcium alginate 03/13/24 1416 Secondary Dressing 4x4 gauze 03/13/24 1416 Secured with Kerlex;Paper tape 03/13/24 1416 Compression Surepress 02/28/24 1000 Periwound Dressing Moisturizing lotion 02/28/24 1000 Dressing Status New dressing;Clean, dry & intact 03/13/24 1416 Wound/Incision 02/21/24 Venous Ulcer Pretibial Left (Active) Wound Image 03/13/24 1358 Site Assessment Bleeding 03/13/24 1358 Carine-Wound Assessment Dry 03/13/24 1358 Wound Length (cm) 1 cm 03/13/24 1358 Wound Width (cm) 0.9 cm 03/13/248 Wound Surface Area (cm^2) 0.9 cm^2 03/13/248 Wound Depth (cm) 0.1 cm 03/13/24 135 Wound Volume (cm^3) 0.09 cm^3 03/13/24 135 Wound Healing % 83 03/13/24 1358 Drainage Description Serosanguineous 03/13/24 1358 Odor None 03/13/248 Drainage Amount Small 03/13/241357 Treatments Cleansed 03/13/241357 Primary Dressing Calcium alginate 03/13/241357 Secondary Dressing 4x4 gauze 02/28/24 1000 Secured with Kerlex;Silk tape 02/28/24 1000 Compression Multilayer compression wrap - 3 layers 03/13/241357 Periwound Dressing Moisturizing lotion 03/13/241357 Dressing Status New dressing;Clean, dry & intact [...] with plan. Please see attached Discharge Instructions [facility] 03-06-2024 Hospital Discharge instructions Giuliana Radford RN - 03/06/2024 10:30 AM EST Return Appointment in: 1 week - Should you experience any significant changes in your wound(s) or have any questions regarding your home care instructions please contact the wound center at [phone] If after regular business hours, please call [...] help with wound healing Nursing Care Facility: [facility] Treatment to R toes- Daily Cleanse [...] daily and PRN. documented in this encounter [facility] 03-06-2024 Note [facility] Wound Care Progress Note CHIEF COMPLAINT: [...] - third Right;Dorsal (Active) Wound Image 03/06/24 103 Site Assessment Yellow;Sloughing 03/06/24 1033 Carine-Wound Assessment Dry 02/28/24 0957 Wound Length (cm) 1.5 cm 03/06/24 1033 Wound Width (cm) 3 cm 03/06/24 1033 Wound Surface Area (cm^2) 4.5 cm^2 03/06/24 1033 Wound Depth (cm) 0.1 cm 03/06/24 103 Wound Volume (cm^3) 0.45 cm^3 03/06/24 103 Wound Healing % -257 03/06/24 103 Drainage Description Serosanguineous;Yellow 03/06/24 1033 Odor Mild [...] with plan. 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 [facility] Wound Care Progress Note CHIEF COMPLAINT: [...] Right;Dorsal (Active) Wound Image 02/28/24956 Site Assessment Granulation;[place];Sloughing 02/28/24956 Carine-Wound Assessment Dry 02/28/24956 Wound Length (cm) 1.5 cm 02/28/24956 Wound Width (cm) 3 cm 02/28/24956 Wound Surface Area (cm^2) 4.5 cm^2 02/28/24956 Wound Depth (cm) 0.1 cm 02/28/24956 Wound Volume (cm^3) 0.45 cm^3 02/28/24956 Wound Healing % -257 02/28/24956 Drainage Description Serosanguineous;Yellow 02/28/24956 Odor None 02/28/24956 Drainage Amount Moderate 02/28/24956 Treatments Cleansed 02/28/24 09 Primary Dressing Alginate 02/28/24 1000 Secondary Dressing [...] provider verified the correct patient, procedure, equipment, technical support coordinator, and site/side marked as required. Debridement Details [...] attached Discharge Instructions documented in this encounter [facility] 02-28-2024 Hospital Discharge instructions Giuliana Radford RN - 02/28/2024 10:30 AM EST Return Appointment in: 1 week - Should you experience any significant changes in your wound(s) or have any questions regarding your home care instructions please contact the wound center at [phone] If after regular business hours, please call [...] lite applied for prevention. Nursing Care Facility: [facility]ound Treatment to R toes- Daily Cleanse [...] daily and PRN. documented in this encounter [facility] 02-28-2024 Note [facility] Wound Care Progress Note CHIEF COMPLAINT: [...] Right;Dorsal (Active) Wound Image 02/28/24956 Site Assessment Granulation;[place];Sloughing 02/28/24956 Carine-Wound Assessment Dry 02/28/24956 Wound Length [...] provider verified the correct patient, procedure, equipment, technical support coordinator, and site/side marked as required. Debridement Details [...] with plan. Please see attached Discharge Instructions [facility] 02-21-2024 Hospital Discharge instructions Giuliana Radford RN - 02/21/2024 9:45 AM EST Return Appointment in: 1 week - Should you experience any significant changes in your wound(s) or have any questions regarding your home care instructions please contact the wound center at [phone] If after regular business hours, please call [...] lite applied for prevention. Nursing Care Facility: [facility]ound Treatment to R toes- Daily Cleanse [...] daily and PRN. documented in this encounter [facility] 02-21-2024 Note [facility] Wound Care Progress Note CHIEF COMPLAINT: Wound [...] Right;Dorsal (Active) Wound Image 02/21/24948 Site Assessment [place];Granulation;Sloughing 02/21/24948 Carine-Wound Assessment Dry 02/21/24948 Wound Length (cm) 1.5 cm 02/21/24948 Wound Width (cm) 3.1 cm 02/21/24948 Wound Surface Area (cm^2) 4.65 cm^2 02/21/24948 Wound Depth (cm) 0.1 cm 02/21/24948 Wound Volume (cm^3) 0.465 cm^3 02/21/24948 Wound Healing % -269 02/21/2449 Drainage Description Serosanguineous;Yellow 02/21/24 0949 Odor Mild 02/21/2449 Drainage Amount Moderate 02/21/24 0949 Treatments Cleansed 02/21/2449 Primary Dressing Collagen Ag;Calcium alginate 02/21/24 1000 [...] 02/21/24950 Odor None 02/21/24950 Drainage Amount Moderate 02/21/2451 Treatments Cleansed 02/21/2451 Primary Dressing Calcium alginate 02/21/24 1000 Compression [...] with plan. Please see attached Discharge Instructions [facility] 02-18-2024 Emergency department Note Aamir bernard at bedside [facility] 02-18-2024 Emergency department Note Aamir bernard [...] of headache that was not relieved with Griswold or Tylenol this evening at the [facility]. [facility] sent him to the emergency department to be evaluated for his intractable headache. Nursing Notes were reviewed. Limitations to history: Altered mental status/confusion Outside historians: [facility] facility REVIEW OF SYSTEMS Review of Systems [...] response syndrome) (HCC) TBI (traumatic brain injury) ([facility]) Venous insufficiency SURGICAL HISTORY Past Surgical History: Procedure Laterality Date CHOLECYSTECTOMY 10/28/2022 Andre; lap CRANIOTOMY TONSILLECTOMY CURRENT MEDICATIONS Previous Medications [...] MG CAPSULE CHOLECALCIFEROL (VITAMIN D3) 1.25 MG (71022 UT) TABLET Take by mouth 1 (one) [...] Procedure Abnormality Status --------- ------ Comprehensive metabolic ...[[id number]] Abnormal Final result Please view results for [...] of headache that was not relieved with Griswold or Tylenol this evening at the [facility]. [facility] facility sent him to the emergency department [...] 15 mg (15 mg IntraVENous Given 02/18/24 0202) ondansetron (Zofran) injection 4 mg (4 mg IntraVENous Given 02/18/24 0203) REVAL: Patient on reexamination at 2:47 AM states his headache feels much better and is ready to go back to the [facility] facility. FINAL IMPRESSION 1. Nonintractable headache, unspecified chronicity pattern, unspecified headache type DISPOSITION Discharge 02/18/2024 02:49:31 AM PATIENT REFERRED TO: Demetrius Fenton [address] [facility] [address] [facility] [id number] DISCHARGE MEDICATIONS: New Prescriptions No medications on [...] Medicine Provider Kaylee Bunch MD 02/18/24 0250 Pt presents with headache, 12/18, from [facility], unsure was if he was given any meds at [facility], alert and oriented x3, disoriented to year, oriented to month, according to care home he received norco and tylenol w no relief, per [facility] states he has constant headache documented in this encounter [facility] 02-18-2024 Emergency department Note Report called to [facility] at this time [facility] 02-18-2024 Hospital Discharge instructions Kaylee Bunch MD - 02/18/2024 2:49 AM EST Return if fever, focal numbness tingling weakness or as needed. The following attachments cannot be sent through Care Everywhere.Headache Discharge Instructions, Adult (Thai)documented in this encounter [facility] 02-18-2024 Emergency department Triage note Pt presents with headache, 12/18, from [facility], unsure was if he was given any meds at [facility], alert and oriented x3, disoriented to year, oriented to month, according to care home he received norco and tylenol w no relief, per [facility] states he has constant headache [facility] 02-18-2024 Physician Emergency department Note EMERGENCY DEPARTMENT [...] of headache that was not relieved with Griswold or Tylenol this evening at [facility]. [facility] sent him to the emergency department to be evaluated for his intractable headache. Nursing Notes were reviewed. Limitations to history: Altered mental status/confusion Outside historians: [facility] facility REVIEW OF SYSTEMS Review of Systems [...] TBI (traumatic brain injury) (HCC) Venous insufficiency SURGICAL HISTORY Past Surgical History: [...] MG CAPSULE CHOLECALCIFEROL (VITAMIN D3) 1.25 MG (18749 UT) TABLET Take by mouth 1 (one) [...] Procedure Abnormality Status --------- ------ Comprehensive metabolic ...[[id number]] Abnormal Final result Please view results for these tests on the individual orders. All other labs were within normal range or not returned as of this dictation. EMERGENCY DEPARTMENT COURSE and DIFFERENTIAL DIAGNOSIS/MDM: Vitals: Vitals: 02/18/24101 BP: 109/76 Pulse: 77 Resp: 20 Temp: 36.5 C (97.7 F) TempSrc: Oral SpO2: 94% Moises Madrid is a 63 y.o. with a history of traumatic brain injury in the 1980s, chronic headaches who presents to the emergency department with chief complaint of headache that was not relieved with Griswold or Tylenol this [facility] at [facility]. [facility] to the emergency department to be evaluated for his intractable headache. Differential diagnosis for persistent headache includes but not limited to intracranial pathology Diagnoses as of 02/18/24248 Nonintractable headache, unspecified chronicity pattern, unspecified headache [...] is ready to go back to the [facility] facility. FINAL IMPRESSION 1. Nonintractable headache, unspecified chronicity pattern, unspecified headache type DISPOSITION Discharge 02/18/2024 02:49:31 AM PATIENT REFERRED TO: Demetrius Fenton [address] [facility] [address] [facility] [id number] DISCHARGE MEDICATIONS: New Prescriptions No medications [...] signed) Emergency Medicine Provider Kaylee Bunch MD 02/18/24249 [facility] 02-14-2024 History of Present illness Narrative Images from the original note were not included. [facility] Wound Care Progress Note CHIEF COMPLAINT: [...] Right;Dorsal (Active) Wound Image 02/14/24843 Site Assessment Granulation;[place] 02/14/24843 Carine-Wound Assessment Moist 02/14/24843 Wound Length [...] attached Discharge Instructions documented in this encounter [facility] 02-14-2024 History of Present illness Narrative Images from the original note were not included. [facility] Wound Care Progress Note CHIEF COMPLAINT: [...] Right;Dorsal (Active) Wound Image 02/14/24843 Site Assessment Granulation;[place] 02/14/24843 Carine-Wound Assessment Moist 02/14/24843 Wound Length [...] attached Discharge Instructions documented in this encounter [facility] 02-14-2024 Hospital Discharge instructions Giuliana Radford RN - 02/14/2024 8:45 AM EST Return Appointment in: 1 week - Should you experience any significant changes in your wound(s) or have any questions regarding your home care instructions please contact the wound center at [phone] If after regular business hours, please call [...] lite applied for prevention. Nursing Care Facility: [facility]ound Treatment to R toes- Daily Cleanse [...] daily and PRN. documented in this encounter [facility] 02-14-2024 Hospital Discharge instructions Giuliana Radford RN - 02/14/2024 8:45 AM EST Return Appointment in: 1 week - Should you experience any significant changes in your wound(s) or have any questions regarding your home care instructions please contact the wound center at [phone] If after regular business hours, please call [...] lite applied for prevention. Nursing Care Facility: [facility] Wound Treatment to R toes- Daily Cleanse [...] daily and PRN. documented in this encounter [facility] 02-14-2024 Miscellaneous Notes Encounter addended by: Marycarmen Corona RN on: 02/15/2024 9:48 AM Actions taken: Charge Capture section accepted documented in this encounter [facility] 02-14-2024 Note Encounter addended b y: Marycarmen Corona RN on: 02/15/2024 9:48 AM Actions taken: Charge Capture section accepted [facility] 02-14-2024 Note [facility] Wound Care Progress Note CHIEF COMPLAINT: [...] Right;Dorsal (Active) Wound Image 02/14/24843 Site Assessment Granulation;[place] 02/14/24843 Carine-Wound Assessment Moist 02/14/24843 Wound Length [...] with plan. Please see attached Discharge Instructions [facility] 02-07-2024 History of Present illness Narrative Images from the original note were not included. [facility] Wound Care Progress Note CHIEF COMPLAINT: [...] Right;Dorsal (Active) Wound Image 02/07/24923 Site Assessment Granulation;[place];Swelling 02/07/24923 Carine-Wound Assessment Boggy;Moist 02/07/24923 Wound Length [...] attached Discharge Instructions documented in this encounter [facility] 02-07-2024 Hospital Discharge instructions Giuliana Radford RN - 02/07/2024 8:45 AM EDT Return Appointment in: 1 week - Should you experience any significant changes in your wound(s) or have any questions regarding your home care instructions please contact the wound center at [phone] If after regular business hours, please call [...] Take antibiotic as directed Nursing Care Facility: [facility] Wound Treatment to R toes- Daily Cleanse [...] daily and PRN. documented in this encounter [facility] 02-07-2024 Miscellaneous Notes Encounter addended by: Adriana Barbosa MA on: 02/07/2024 10:26 AM Actions taken: Flowsheet accepted Encounter addended by: Marycarmen Corona RN on: 02/07/2024 10:59 AM Actions taken: Charge Capture section accepted documented in this encounter [facility] 02-07-2024 Note Encounter addended b y: Adriana Barbosa MA on: 02/07/2024 10:26 AM Actions taken: Flowsheet accepted [facility] 02-07-2024 Note Encounter addended b y: Marycarmen Corona RN on: 02/07/2024 10:59 AM Actions taken: Charge Capture section accepted [facility] 02-07-2024 Note Encounter addended b y: Adriana Barbosa MA on: 02/07/2024 10:26 AM Actions taken: Flowsheet accepted [facility] 02-07-2024 Note Encounter addended b y: Marycarmen Corona RN on: 02/07/2024 10:59 AM Actions taken: Charge Capture section accepted [facility] 02-07-2024 Note Encounter addended b y: Adriana Barbosa MA on: 02/07/2024 10:26 AM Actions taken: Flowsheet accepted [facility] 02-07-2024 Note Encounter addended b y: Marycarmen Corona RN on: 02/07/2024 10:59 AM Actions taken: Charge Capture section accepted [facility] 02-07-2024 Note Encounter addended b y: Adriana Barbosa MA on: 02/07/2024 10:26 AM Actions taken: Flowsheet accepted [facility] 02-07-2024 Note Encounter addended b y: Marycarmen Corona RN on: 02/07/2024 10:59 AM Actions taken: Charge Capture section accepted [facility] 02-07-2024 Note [facility] Wound Care Progress Note CHIEF COMPLAINT: [...] Right;Dorsal (Active) Wound Image 02/07/24923 Site Assessment Granulation;[place];Swelling 02/07/24923 Carine-Wound Assessment Boggy;Moist 02/07/24923 Wound Length [...] with plan. Please see attached Discharge Instructions [facility] 01-31-2024 History of Present illness Narrative Images from the original note were not included. [facility] Wound Care Progress Note CHIEF COMPLAINT: [...] Right;Dorsal (Active) Wound Image 01/31/24817 Site Assessment Granulation;Pale;[place] 01/31/24817 Carine-Wound Assessment Moist 01/31/24817 Wound Length [...] attached Discharge Instructions documented in this encounter [facility] 01-31-2024 History of Present illness Narrative Images from the original note were not included. [facility] Wound Care Progress Note CHIEF COMPLAINT: [...] Right;Dorsal (Active) Wound Image 01/31/24817 Site Assessment Granulation;Pale;[place] 01/31/24817 Carine-Wound Assessment Moist 01/31/24817 Wound Length [...] Compression Multilayer compression wrap - 3 layers 01/31/24 0818 Dressing Status Clean, dry & intact;New dressing [...] attached Discharge Instructions documented in this encounter [facility] 01-31-2024 Hospital Discharge instructions Giuliana Radford RN - 01/31/2024 8:45 AM EDT Return Appointment in: 1 week - Should you experience any significant changes in your wound(s) or have any questions regarding your home care instructions please contact the wound center at [phone] If after regular business hours, please call [...] Take antibiotic as directed Nursing Care Facility: [facility] Wound Treatment to R toes- Daily Cleanse [...] daily and PRN. documented in this encounter [facility] 01-31-2024 Hospital Discharge instructions Giuliana Radford RN - 01/31/2024 8:45 AM EDT Return Appointment in: 1 week - Should you experience any significant changes in your wound(s) or have any questions regarding your home care instructions please contact the wound center at [phone] If after regular business hours, please call [...] Take antibiotic as directed Nursing Care Facility: [facility] Wound Treatment to R toes- Daily Cleanse [...] daily and PRN. documented in this encounter [facility] 01-31-2024 Miscellaneous Notes Encounter addended by: Marycarmen Corona RN on: 02/02/2024 10:55 AM Actions taken: Charge Capture section accepted documented in this encounter [facility] 01-31-2024 Note Encounter addended b y: Marycarmen Corona RN on: 02/02/2024 10:55 AM Actions taken: Charge Capture section accepted [facility] 01-31-2024 Note [facility] Wound Care Progress Note CHIEF COMPLAINT: [...] Right;Dorsal (Active) Wound Image 01/31/24817 Site Assessment Granulation;Pale;[place] 01/31/24817 Carine-Wound Assessment Moist 01/31/24817 Wound Length [...] with plan. Please see attached Discharge Instructions [facility] 01-24-2024 History of Present illness Narrative Images from the original note were not included. [facility] Wound Care Progress Note CHIEF COMPLAINT: [...] attached Discharge Instructions documented in this encounter [facility] 01-24-2024 History of Present illness Narrative Images from the original note were not included. [facility] Progress Note CHIEF COMPLAINT: [...] attached Discharge Instructions documented in this encounter [facility] 01-24-2024 Hospital Discharge instructions Giuliana Radford RN - 01/24/2024 10:00 AM EDT Return Appointment in: 1 week - Should you experience any significant changes in your wound(s) or have any questions regarding your home care instructions please contact the wound center at [phone] If after regular business hours, please call [...] Take antibiotic as directed Nursing Care Facility: [facility] Wound Treatment to R toes- Daily Cleanse [...] daily and PRN. documented in this encounter [facility] 01-24-2024 Hospital Discharge instructions Giuliana Radford RN - 01/24/2024 10:00 AM EDT Return Appointment in: 1 week - Should you experience any significant changes in your wound(s) or have any questions regarding your home care instructions please contact the wound center at [phone] If after regular business hours, please call [...] Take antibiotic as directed Nursing Care Facility: [facility] Wound Treatment to R toes- Daily Cleanse [...] daily and PRN. documented in this encounter [facility] 01-24-2024 Miscellaneous Notes Encounter addended by: Sharla Beard LPN on: 01/24/2024 10:57 AM Actions taken: Flowsheet accepted, Follow-up modified documented in this encounter [facility] 01-24-2024 Miscellaneous Notes Encounter addended by: Sharla Beard LPN on: 01/24/2024 10:57 AM Actions taken: Flowsheet accepted, Follow-up modified Encounter addended by: Marcyarmen Corona RN on: 01/30/2024 3:44 PM Actions taken: LDA properties accepted, Charge Capture section accepted documented in this encounter [facility] 01-24-2024 Note Encounter addended b y: Sharla Beard LPN on: 01/24/2024 10:57 AM Actions taken: Flowsheet accepted, Follow-up modified [facility] 01-24-2024 Note Encounter addended b y: Sharla Beard LPN on: 01/24/2024 10:57 AM Actions taken: Flowsheet accepted, Follow-up modified [facility] 01-24-2024 Note Encounter addended b y: Sharla Beard LPN on: 01/24/2024 10:57 AM Actions taken: Flowsheet accepted, Follow-up modified [facility] 01-24-2024 Note Encounter addended b y: Sharla Beard LPN on: 01/24/2024 10:57 AM Actions taken: Flowsheet accepted, Follow-up modified [facility] 01-24-2024 Note Encounter addended b y: Marycarmen Corona RN on: 01/30/2024 3:44 PM Actions taken: LDA properties accepted, Charge Capture section accepted [facility] 01-24-2024 Note Encounter addended b y: Sharla Beard LPN on: 01/24/2024 10:57 AM Actions taken: Flowsheet accepted, Follow-up modified [facility] 01-24-2024 Note [facility] Wound Care Progress Note CHIEF COMPLAINT: [...] with plan. Please see attached Discharge Instructions [facility] 01-17-2024 History of Present illness Narrative Images from the original note were not included. [facility] Wound Care Progress Note CHIEF COMPLAINT: [...] (Active) Wound Image 01/17/24 1005 Site Assessment Granulation;[place] 01/17/24 1005 Carine-Wound Assessment Calloused;Moist 01/17/24 1005 [...] 01/10/24 0934 Wound/Incision 11/15/23 Venous Ulcer Leg Right;Lower;Anterior;Lateral (Active) Wound Image 01/17/24 1003 Site Assessment Bleeding 01/17/24 1003 Carine-Wound Assessment Dry;Intact 01/17/24 1003 Wound Length [...] attached Discharge Instructions documented in this encounter [facility] 01-17-2024 Hospital Discharge instructions Giuliana Radford RN - 01/17/2024 9:45 AM EDT Return Appointment in: 1 week - Should you experience any significant changes in your wound(s) or have any questions regarding your home care instructions please contact the wound center at [phone] If after regular business hours, please call [...] Take antibiotic as directed Nursing Care Facility: [facility] Wound Treatment to R toes- Daily Cleanse [...] daily and PRN. documented in this encounter [facility] 01-17-2024 Note [facility] Wound Care Progress Note CHIEF COMPLAINT: [...] (Active) Wound Image 01/17/24 1005 Site Assessment Granulation;[place] 01/17/24 100 Carine-Wound Assessment Calloused;Moist 01/17/24 1005 Wound Length [...] Image 01/17/24 1003 Site Assessment Bleeding 01/17/24 1003 Carine-Wound Assessment Dry;Intact 01/17/24 1003 Wound Length (cm) 1.1 cm 01/17/24 1003 Wound Width (cm) 1.8 cm 01/17/24 1003 Wound Surface Area (cm^2) 1.98 cm^2 01/17/241002 Wound Depth (cm) 0.1 cm 01/17/241002 Wound Volume (cm^3) 0.198 cm^3 01/17/24 100 Wound Healing % 98 01/17/24 100 Drainage Description Red;Serosanguineous 01/17/24 1003 Odor None 01/17/241002 Drainage Amount Small 01/17/241002 [...] or implied. Please see attached Discharge Instructions [facility] 01-10-2024 History of Present illness Narrative Images from the original note were not included. [facility] [facility]OS[facility]ITAL Wound Care Progress Note CHIEF COMPLAINT: [...] Right;Anterior (Active) Wound Image 01/10/24933 Site Assessment Granulation;[place] 01/10/24933 Carine-Wound Assessment Maceration 01/10/24933 Wound Length [...] Venous Ulcer Leg Right;Lower;Anterior;Lateral (Active) Wound Image 01/10/24 09 Site Assessment Dry;[place] 01/10/24935 Carine-Wound Assessment Dry 01/10/24935 Wound Length (cm) 0.7 cm 01/10/24935 Wound Width (cm) 0.5 cm 10/02/24 0936 Wound Surface Area (cm^2) 0.35 cm^2 01/10/24935 [...] attached Discharge Instructions documented in this encounter [facility] 01-10-2024 Hospital Discharge instructions Giuliana aRdford RN - 01/10/2024 9:15 AM EDT Return Appointment in: 1 week - Should you experience any significant changes in your wound(s) or have any questions regarding your home care instructions please contact the wound center at [phone] If after regular business hours, please call [...] Take antibiotic as directed Nursing Care Facility: [facility] Wound Treatment to R toes- Daily Cleanse [...] daily and PRN. documented in this encounter [facility] 01-10-2024 Note [facility] Wound Care Progress Note CHIEF COMPLAINT: [...] Right;Anterior (Active) Wound Image 01/10/24933 Site Assessment Granulation;[place] 01/10/24933 Carine-Wound Assessment Maceration 01/10/24933 Wound Length [...] Right;Lower;Anterior;Lateral (Active) Wound Image 01/10/24935 Site Assessment Dry;[place] 01/10/24935 Carine-Wound Assessment Dry 01/10/24935 Wound Length [...] or implied. Please see attached Discharge Instructions [facility] 01-03-2024 History of Present illness Narrative Images from the original note were not included. [facility] Wound Care Progress Note CHIEF COMPLAINT: [...] (Active) Wound Image 01/03/24 1523 Site Assessment Granulation;Pale;[place];Sloughing 01/03/24 1523 Carine-Wound Assessment Maceration;Edema 01/03/24 1523 [...] Site Assessment Dry;[place] 01/03/24 1522 Carine-Wound Assessment [place] 01/03/24 1522 Wound Length (cm) 1.5 cm [...] attached Discharge Instructions documented in this encounter [facility] 01-03-2024 Hospital Discharge instructions Giuliana Radford RN - 01/03/2024 3:15 PM EDT Return Appointment in: 1 week - Should you experience any significant changes in your wound(s) or have any questions regarding your home care instructions please contact the wound center at [phone] If after regular business hours, please call [...] Take antibiotic as directed Nursing Care Facility: [facility] Wound Treatment to R toes- Daily Cleanse [...] daily and PRN. documented in this encounter [facility] 01-03-2024 Note [facility] Wound Care Progress Note CHIEF COMPLAINT: [...] (Active) Wound Image 01/03/24 1523 Site Assessment Granulation;Pale;[place];Sloughing 01/03/24 1523 Carine-Wound Assessment Maceration;Edema 01/03/24 1523 [...] Site Assessment Dry;[place] 01/03/24 1522 Carine-Wound Assessment [place] 01/03/24 1522 Wound Length (cm) 1.5 cm [...] or implied. Please see attached Discharge Instructions [facility] 12-27-2023 Hospital Discharge instructions Giuliana Radford RN - 12/27/2023 2:45 PM EDT Return Appointment in: 1 week - Should you experience any significant changes in your wound(s) or have any questions regarding your home care instructions please contact the wound center at [phone] If after regular business hours, please call [...] Take antibiotic as directed Nursing Care Facility: [facility] Wound Treatment to R toes- Daily Cleanse [...] daily and PRN. documented in this encounter [facility] 12-27-2023 Note [facility] Wound Care Progress Note CHIEF COMPLAINT: [...] - third Right;Anterior (Active) Wound Image 12/27/23 1341 Site Assessment Granulation;[place];Sloughing 12/27/23 1341 Carine-Wound Assessment Maceration;Moist 12/27/23 1341 [...] (Active) Wound Image 12/27/23 1340 Site Assessment [place];Red 12/27/23 1340 Carine-Wound Assessment Dry 12/27/23 1340 Wound Length [...] or implied. Please see attached Discharge Instructions [facility] 12-20-2023 History of Present illness Narrative Images from the original note were not included. [facility] Wound Care Progress Note CHIEF COMPLAINT: [...] (Active) Wound Image 12/20/23 1108 Site Assessment Granulation;[place];Red 12/20/238 Carine-Wound Assessment Moist ;Maceration 12/20/23 1108 Wound Length (cm) 1 cm 12/20/23 1108 Wound Width (cm) 4.5 cm 12/20/23 1108 Wound Surface Area (cm^2) 4.5 cm^2 12/20/23 1108 Wound Depth (cm) 0.3 cm 12/20/23 1108 Wound Volume (cm^3) 1.35 cm^3 12/20/23 1108 Wound Healing % -971 12/20/238 Drainage Description Serosanguineous 12/20/23 1108 Odor None [...] attached Discharge Instructions documented in this encounter [facility] 12-20-2023 Hospital Discharge instructions Giuliana Radford RN - 12/20/2023 11:00 AM EDT Return Appointment in: 1 week - Should you experience any significant changes in your wound(s) or have any questions regarding your home care instructions please contact the wound center at [phone] If after regular business hours, please call [...] Take antibiotic as directed Nursing Care Facility: [facility] Wound Treatment to R toes- Daily Cleanse [...] daily and PRN. documented in this encounter [facility] 12-20-2023 Note [facility] Wound Care Progress Note CHIEF COMPLAINT: [...] (Active) Wound Image 12/20/23 1108 Site Assessment Granulation;[place];Red 12/20/23 1108 Carine-Wound Assessment Moist ;Maceration 12/20/23 [...] or implied. Please see attached Discharge Instructions [facility] 12-13-2023 History of Present illness Narrative Images from the original note were not included. [facility] Wound Care Progress Note CHIEF COMPLAINT: [...] (Active) Wound Image 12/13/23 153 Site Assessment [place];Red;Sloughing 12/13/23 153 Carine-Wound Assessment Moist ;Maceration 12/13/23 [...] attached Discharge Instructions documented in this encounter [facility] 12-13-2023 Hospital Discharge instructions Giuliana Radford RN - 12/13/2023 3:15 PM EDT Return Appointment in: 1 week - Should you experience any significant changes in your wound(s) or have any questions regarding your home care instructions please contact the wound center at [phone] If after regular business hours, please call [...] Take antibiotic as directed Nursing Care Facility: [facility] Wound Treatment to R toes- Daily Cleanse [...] daily and PRN. documented in this encounter [facility] 12-13-2023 Miscellaneous Notes Encounter addended by: Renetta Majano LPN on: 12/13/2023 4:16 PM Actions taken: Flowsheet accepted documented in this encounter [facility] 12-13-2023 Note Encounter addended b y: Renetta Majano LPN on: 12/13/2023 4:16 PM Actions taken: Flowsheet accepted [facility] 12-13-2023 Note Encounter addended b y: Renetta Majano LPN on: 12/13/2023 4:16 PM Actions taken: Flowsheet accepted [facility] 12-13-2023 Note Encounter addended b y: Renetta Majano LPN on: 12/13/2023 4:16 PM Actions taken: Flowsheet accepted [facility] 12-13-2023 Note [facility] Wound Care Progress Note CHIEF COMPLAINT: [...] (Active) Wound Image 12/13/23 153 Site Assessment [place];Red;Sloughing 12/13/23 1532 Carine-Wound Assessment Moist ;Maceration 12/13/23 1532 Wound Length (cm) 0.9 cm 12/13/23 1532 Wound Width (cm) 2.6 cm 12/13/23 1532 Wound Surface Area (cm^2) 2.34 cm^2 12/13/23 1532 Wound Depth (cm) 0.2 cm 12/13/23 1532 Wound Volume (cm^3) 0.468 cm^3 12/13/23 1532 Wound Healing % -271 12/13/23 153 Drainage Description Serosanguineous 12/13/23 153 Odor None 12/13/23 1532 Drainage Amount Small [...] or implied. Please see attached Discharge Instructions [facility] 12-13-2023 Note Encounter addended b y: Renetta Majano LPN on: 12/13/2023 4:16 PM Actions taken: Flowsheet accepted [facility] 12-06-2023 History of Present illness Narrative Images from the original note were not included. [facility] Wound Care Progress Note CHIEF COMPLAINT: [...] (Active) Wound Image 12/06/23 1050 Site Assessment [place];Red;Sloughing 12/06/23 1050 Carine-Wound Assessment Moist ;Maceration 12/06/23 [...] (Active) Wound Image 12/06/23 1048 Site Assessment Dry;[place];Sloughing 12/06/23 1048 Carine-Wound Assessment Edema;[place] 12/06/23 1048 Wound Length (cm) 4 cm [...] attached Discharge Instructions documented in this encounter [facility] 12-06-2023 Hospital Discharge instructions Giuliana Radford RN - 12/06/2023 10:30 AM EDT Return Appointment in: 1 week - Should you experience any significant changes in your wound(s) or have any questions regarding your home care instructions please contact the wound center at [phone] If after regular business hours, please call [...] Take antibiotic as directed Nursing Care Facility: [facility] Wound Treatment to R toes- Daily Cleanse [...] daily and PRN. documented in this encounter [facility] 12-06-2023 Note [facility] Wound Care Progress Note CHIEF COMPLAINT: [...] (Active) Wound Image 12/06/23 1050 Site Assessment [place];Red;Sloughing 12/06/23 1050 Carine-Wound Assessment Moist ;Maceration 12/06/23 [...] (Active) Wound Image 12/06/23 1048 Site Assessment Dry;[place];Sloughing 12/06/23 1048 Carine-Wound Assessment Edema;[place] 12/06/23 1048 Wound Length (cm) 4 cm [...] or implied. Please see attached Discharge Instructions [facility] 11-29-2023 History of Present illness Narrative Images from the original note were not included. [facility] Wound Care Progress Note CHIEF COMPLAINT: [...] Image 11/29/23 1055 Site Assessment Fragile;Red;Sloughing;Swelling 11/29/23 1055 Carine-Wound Assessment Dry;Red 11/29/23 1055 Wound Length (cm) 1 cm 11/29/23 1055 Wound Width (cm) 3.3 cm 11/29/23 1055 Wound Surface Area (cm^2) 3.3 cm^2 11/29/23 1055 Wound Depth (cm) 0.1 cm 11/29/23 1055 Wound Volume (cm^3) 0.33 cm^3 11/29/23 105 [...] 11/29/23 1053 Site Assessment Red;Sloughing;Dark edges 11/29/23 105 Carine-Wound [...] attached Discharge Instructions documented in this encounter [facility] 11-29-2023 Hospital Discharge instructions Giuliana Radford RN - 11/29/2023 10:15 AM EDT Return Appointment in: 1 week - Should you experience any significant changes in your wound(s) or have any questions regarding your home care instructions please contact the wound center at [phone] If after regular business hours, please call [...] Take antibiotic as directed Nursing Care Facility: [facility] Wound Treatment to R toes- Daily Cleanse [...] daily and PRN. documented in this encounter [facility]29[facility]2023 [facility] Progress Note CHIEF COMPLAINT: Wound [...] Image 11/29/23 1055 Site Assessment Fragile;Red;Sloughing;Swelling 11/29/23 1055 Carine-Wound Assessment [...] or implied. 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 [facility] Wound Care Progress Note CHIEF COMPLAINT: [...] Image 11/22/23 111 Site Assessment Fragile;Painful;Red;Sloughing 11/22/23 1113 Carine-Wound Assessment Dry;Intact;Moist ;Red 11/22/23 1113 Wound Length (cm) 1.1 cm 11/22/23 1113 Wound Width (cm) 0.8 cm 11/22/23 1113 Wound Surface Area (cm^2) 0.88 cm^2 11/22/23 1113 Wound Depth (cm) 0.2 cm 11/22/23 111 Wound Volume (cm^3) 0.176 cm^3 11/22/23 111 Wound Healing % -40 11/22/23 1113 Drainage [...] provider verified the correct patient, procedure, equipment, technical support coordinator, and site/side marked as required. Debridement Details [...] attached Discharge Instructions documented in this encounter [facility] 11-22-2023 Hospital Discharge instructions Giuliana Radford RN - 11/22/2023 10:45 AM EDT Return Appointment in: 1 week - Should you experience any significant changes in your wound(s) or have any questions regarding your home care instructions please contact the wound center at [phone] If after regular business hours, please call [...] Take antibiotic as directed Nursing Care Facility: [facility] Wound Treatment to R toes- Daily Cleanse [...] daily and PRN. documented in this encounter [facility] 11-22-2023 Note [facility] Wound Care Progress Note CHIEF COMPLAINT: [...] or implied. Please see attached Discharge Instructions [facility] 11-22-2023 Note [facility] Wound Care Progress Note CHIEF COMPLAINT: [...] provider verified the correct patient, procedure, equipment, technical support coordinator, and site/side marked as required. Debridement Details [...] infection Reviewed ac (more content not included)... [facility] 11-17-2023 History of Present illness Narrative Images from the original note were not included. [facility] Nurse Visit Note Moises [...] stable condition. Ambulatory Status: Wheelchair Discharge Destination: [facility] facility Transportation: Private Auto Accompanied by: caregiver Schedule Follow up Appointment: no No orders of the defined types were placed in this encounter. documented in this encounter [facility] 11-17-2023 Note Encounter addended b y: Marycarmen Corona RN on: 11/20/2023 7:52 AM Actions taken: Care Teams modified, Charge Capture section accepted [facility] 11-15-2023 History of Present illness Narrative Images from the original note were not included. [facility] Wound Care Progress Note CHIEF COMPLAINT: [...] Test Results/Process Orders 10 [] Staff telephones [facility], Nursing Homes/Clarify Orders 10 [] Routine Transfer [...] or more Points) documented in this encounter [facility] 11-15-2023 Hospital Discharge instructions Giuliana Radford RN - 11/15/2023 10:45 AM EDT Return Appointment in: 1 week - Should you experience any significant changes in your wound(s) or have any questions regarding your home care instructions please contact the wound center at [phone] If after regular business hours, please call [...] Take antibiotic as directed Nursing Care Facility: [facility] Wound Treatment to R toes- Daily Cleanse wound with mild soap and water and pat dry. Apply Calcium Alginate Apply dry dressing to cover the wound and secure with tape. Wound Treatment to RLE: Cleanse wound with mild soap and water and pat dry. Apply Calcium Alginate Apply Profore light return to center on Thursday 11/16 Do not get wet. OK to shower if wound dressing covered Apply Barrier Cream to bilateral buttocks and sacral area daily and PRN. documented in this encounter [facility] 11-15-2023 Note [facility] Wound Care Progress Note CHIEF COMPLAINT: [...] or implied. Please see attached Discharge Instructions [facility] 11-08-2023 History of Present illness Narrative Images from the original note were not included. [facility] Wound Care Progress Note CHIEF COMPLAINT: [...] Right;Anterior (Active) Wound Image 11/08/23945 Site Assessment Painful;Pale;[place];Red;Sloughing 11/08/23945 Carine-Wound Assessment Macerated;Moist ;Painful 11/08/23945 Wound Length (cm) 6 cm 11/08/23945 Wound Width (cm) 6.5 cm 11/08/23945 Wound Surface Area (cm^2) 39 cm^2 11/08/23 09 Wound Depth (cm) 0.3 cm 11/08/23945 Wound Volume (cm^3) 11.7 cm^3 11/08/23945 Wound Healing % -9186 11/08/23945 Drainage Description Serosanguineous 11/08/23945 Odor Mild 11/08/23945 Drainage Amount Large 11/08/23 0946 Treatments Cleansed [...] Test Results/Process Orders 10 [x] Staff telephones [facility], Nursing Homes/Clarify Orders 10 [x] Routine Transfer [...] or more Points) documented in this encounter [facility] 11-08-2023 History of Present illness Narrative Images from the original note were not included. [facility] Wound Care Progress Note CHIEF COMPLAINT: [...] Right;Anterior (Active) Wound Image 11/08/23945 Site Assessment Painful;Pale;[place];Red;Sloughing 11/08/23945 Carine-Wound Assessment Macerated;Moist ;Painful 11/08/23945 Wound Length (cm) 6 cm 11/08/23945 Wound Width (cm) 6.5 cm 11/08/23945 Wound Surface Area (cm^2) 39 cm^2 11/08/23945 Wound Depth (cm) 0.3 cm 11/08/23945 Wound Volume (cm^3) 11.7 cm^3 11/08/23 09 Wound Healing % -9186 11/08/23945 Drainage Description Serosanguineous 11/08/23945 Odor Mild 11/08/23945 Drainage Amount Large 11/08/23 09 Treatments Cleansed 11/08/23 0946 Primary Dressing Alginate [...] Test Results/Process Orders 10 [x] Staff telephones [facility], Nursing Homes/Clarify Orders 10 [x] Routine Transfer [...] or more Points) documented in this encounter [facility] 11-08-2023 Hospital Discharge instructions Giuliana Radford RN - 11/08/2023 9:30 AM EDT Return Appointment in: 1 week - Should you experience any significant changes in your wound(s) or have any questions regarding your home care instructions please contact the wound center at [phone] If after regular business hours, please call [...] Take antibiotic as directed Nursing Care Facility: [facility] Wound Treatment to R toes and R leg: Daily Cleanse wound with mild soap and water and pat dry. Apply Calcium Alginate Apply dry dressing to cover the wound and secure with tape. 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 documented in this encounter [facility] 11-08-2023 Hospital Discharge instructions Giuliana Radford RN - 11/08/2023 9:30 AM EDT Return Appointment in: 1 week - Should you experience any significant changes in your wound(s) or have any questions regarding your home care instructions please contact the wound center at [phone] If after regular business hours, please call [...] Take antibiotic as directed Nursing Care Facility: [facility] Wound Treatment to R toes and R leg: Daily Cleanse wound with mild soap and water and pat dry. Apply Calcium Alginate Apply dry dressing to cover the wound and secure with tape. 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 documented in this encounter [facility] 11-08-2023 Miscellaneous Notes Encounter addended by: Marycarmen Corona RN on: 11/09/2023 10:22 AM Actions taken: Charge Capture section accepted documented in this encounter [facility] 11-08-2023 Note Encounter addended b y: Marycarmen Corona RN on: 11/09/2023 10:22 AM Actions taken: Charge Capture section accepted [facility] 11-08-2023 Note Encounter addended b y: Marycarmen Corona RN on: 11/09/2023 10:22 AM Actions taken: Charge Capture section accepted [facility] 11-08-2023 Note [facility] Wound Care Progress Note CHIEF COMPLAINT: [...] Right;Anterior (Active) Wound Image 11/08/23945 Site Assessment Painful;Pale;[place];Red;Sloughing 11/08/23945 Carine-Wound Assessment Macerated;Moist ;Painful 11/08/23945 Wound Length (cm) 6 cm 11/08/23945 Wound Width (cm) 6.5 cm 11/08/23945 Wound Surface Area (cm^2) 39 cm^2 11/08/23945 Wound Depth (cm) 0.3 cm 11/08/23945 Wound Volume (cm^3) 11.7 cm^3 11/08/23945 Wound Healing % -9186 11/08/23945 Drainage Description Serosanguineous 11/08/23945 Odor Mild 11/08/23945 Drainage Amount Large 11/08/23945 Treatments Cleansed 11/08/23 0946 Primary Dressing Alginate [...] or implied. Please see attached Discharge Instructions [facility] 11-01-2023 History of Present illness Narrative Images from the original note were not included. [facility] Wound Care Progress Note CHIEF COMPLAINT: [...] - third Right;Anterior (Active) Wound Image 11/01/23 08 Site Assessment Red;[place];Sloughing 11/01/23 08 Carine-Wound Assessment Macerated;Moist 11/01/23 08 Wound Length (cm) 5.4 cm 11/01/23 08 Wound Width (cm) 7.5 cm 11/01/23 08 Wound Surface Area (cm^2) 40.5 cm^2 11/01/23 08 Wound Depth (cm) 0.2 cm 11/01/23 0856 [...] (Active) Wound Image 11/01/23 0858 Site Assessment [place] 11/01/23 0858 Carine-Wound Assessment Dry 11/01/23 0858 [...] attached Discharge Instructions documented in this encounter [facility] 11-01-2023 Hospital Discharge instructions Giuliana Radford RN - 11/01/2023 8:30 AM EDT Return Appointment in: 1 week - Should you experience any significant changes in your wound(s) or have any questions regarding your home care instructions please contact the wound center at [phone] If after regular business hours, please call [...] Take antibiotic as directed Nursing Care Facility: [facility] Wound Treatment to R toes: Daily Cleanse [...] daily and PRN. documented in this encounter [facility] 11-01-2023 Miscellaneous Notes Encounter addended by: Marycarmen Corona RN on: 11/01/2023 11:27 AM Actions taken: Charge Capture section accepted documented in this encounter [facility] 11-01-2023 Note Encounter addended b y: Marycarmen Corona RN on: 11/01/2023 11:27 AM Actions taken: Charge Capture section accepted [facility] 11-01-2023 Note Encounter addended b y: Marycarmen Corona RN on: 11/01/2023 11:27 AM Actions taken: Charge Capture section accepted [facility] 11-01-2023 Note Encounter addended b y: Marycarmen Corona RN on: 11/01/2023 11:27 AM Actions taken: Charge Capture section accepted [facility] 11-01-2023 Note [facility] Wound Care Progress Note CHIEF COMPLAINT: [...] (Active) Wound Image 11/01/23 0856 Site Assessment Red;[place];Sloughing 11/01/23 0856 Carine-Wound Assessment Macerated;Moist 11/01/23 08 [...] (Active) Wound Image 11/01/23 08 Site Assessment [place] 11/01/23 08 Carine-Wound Assessment Dry 11/01/23 0858 Wound Length (cm) 0.2 cm 11/01/23 08 Wound Width (cm) 0.2 cm 11/01/23 08 Wound Surface Area (cm^2) 0.04 cm^2 11/01/23 08 Wound Depth (cm) 0.1 cm 11/01/23 08 Wound Volume (cm^3) 0.004 cm^3 11/01/23 0858 Wound Healing % 96 11/01/23 0858 Drainage Description Serosanguineous 11/01/23 0858 Odor None 11/01/23 08 Drainage Amount Small 11/01/23 08 Treatments Cleansed 11/01/23 08 1. Non-pressure chronic ulcer of other part [...] or implied. 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 [facility] Wound Care Progress Note CHIEF COMPLAINT: [...] (Active) Wound Image 10/25/23 0855 Site Assessment Pale;[place];Sloughing 10/25/23 0855 Carine-Wound Assessment Maceration 10/25/23 08 Wound Length (cm) 1.4 cm 10/25/23 08 Wound Width (cm) 2.3 cm 10/25/23 08 Wound Surface Area (cm^2) 3.22 cm^2 10/25/23 08 Wound Depth (cm) 0.2 cm 10/25/23 08 Wound Volume (cm^3) 0.644 cm^3 10/25/23 08 Wound Healing % -61 10/25/23 08 Drainage Description Serosanguineous 10/25/23 08 Odor None 10/25/23 08 Drainage Amount Moderate 10/25/23 0855 Treatments Irrigation 10/25/23 0855 Primary Dressing Calcium alginate 10/18/23 1046 Secondary Dressing Sorbex 10/18/23 1046 Secured with Kerlex;Silk tape 10/18/23 1046 Compression Surepress 10/18/23 1046 Dressing Status New dressing;Clean, dry & intact 10/18/23 1046 Wound/Incision 08/23/23 Lymphedema Toe - third Right (Active) Wound Image 10/25/23 0858 Site Assessment Pale;[place];Sloughing 10/25/23 08 Carine-Wound Assessment Maceration 10/25/23 0858 Wound Length (cm) 1 cm 10/25/23 08 Wound Width (cm) 0.9 cm 10/25/23 08 Wound Surface Area (cm^2) 0.9 cm^2 10/25/23 08 Wound Depth (cm) 0.2 cm 10/25/23 08 Wound Volume (cm^3) 0.18 cm^3 10/25/23 08 Wound Healing % -43 10/25/23 0858 Drainage [...] (Active) Wound Image 10/25/23 0857 Site Assessment Intact;[place] 10/25/23 0857 Carine-Wound Assessment Intact 10/25/23 0857 [...] 0902 Wound Length (cm) 0.9 cm 10/25/23 0902 Wound Width (cm) 1.2 cm 10/25/23 0902 Wound Surface Area (cm^2) 1.08 cm^2 10/25/23 0902 Wound Depth (cm) 0.1 cm 10/25/23 09 Wound Volume (cm^3) 0.108 cm^3 10/25/23 09 Drainage Description Serosanguineous 10/25/23 0902 Odor None 10/25/23 0902 Drainage Amount Scant 10/25/23 0902 Treatments Cleansed 10/25/23 09 Debridement Wound/Incision 08/23/23 Lymphedema Toe- second Right [...] provider verified the correct patient, procedure, equipment, technical support coordinator, and site/side marked as required. Debridement Details [...] attached Discharge Instructions documented in this encounter [facility] 10-25-2023 Hospital Discharge instructions Giuliana Radford RN - 10/25/2023 8:30 AM EDT Return Appointment in: 1 week - Should you experience any significant changes in your wound(s) or have any questions regarding your home care instructions please contact the wound center at [phone] If after regular business hours, please call [...] Take antibiotic as directed Nursing Care Facility: [facility] Wound Treatment: Wound: right toes and RLE Dressing Frequency: Dressing weekly Wound Cleansing: OK to shower if wound dressing covered Apply hydrafera blue Secondary Dressing: Superabsorbent pad or sorbex Secure With: Kerlex Roll gauze 4", Silk Tape 1" Compression: Unna boot profore lite Apply Barrier Cream to bilateral buttocks and sacral area daily and PRN. documented in this encounter [facility] 10-25-2023 Note [facility] Wound Care Progress Note CHIEF COMPLAINT: [...] (Active) Wound Image 10/25/23 0855 Site Assessment Pale;[place];Sloughing 10/25/23 0855 Carine-Wound Assessment Maceration 10/25/23 0855 [...] (Active) Wound Image 10/25/23 0858 Site Assessment Pale;[place];Slough[place] 10/25/23 0858 Carine-Wound Assessment Maceration 10/25/23 0858 [...] (Active) Wound Image 10/25/23 0857 Site Assessment Intact;[place] 10/25/23 0857 Carine-Wound Assessment Intact 10/25/23 0857 [...] 0902 Wound Length (cm) 0.9 cm 10/25/23 0902 Wound Width (cm) 1.2 cm 10/25/23901 Wound [...] provider verified the correct patient, procedure, equipment, technical support coordinator, and site/side marked as required. Debridement Details Performed by (more content not included)... [facility] 10-18-2023 History of Present illness Narrative Images from the original note were not included. [facility] Wound Care Progress Note CHIEF COMPLAINT: [...] (Active) Wound Image 10/18/23 1046 Site Assessment Pale;[place];Sloughing;Maceration 10/18/23 1046 Carine-Wound Assessment Maceration 10/18/23 1046 [...] (Active) Wound Image 10/18/23 1044 Site Assessment Maceration;Pale;[place];Slough[place] 10/18/23 1044 Carine-Wound Assessment Macerated;Pale 10/18/23 1044 [...] Toe - great Anterior;Right (Active) Wound Image 10/18/231048 Site Assessment Maceration;[place] 10/18/231048 Carine-Wound Assessment Moist 10/18/239 Wound Length (cm) 0.4 cm 10/18/231048 Wound Width (cm) 1.4 cm 10/18/23 1049 [...] attached Discharge Instructions documented in this encounter [facility] 10-18-2023 History of Present illness Narrative Images from the original note were not included. [facility] Wound Care Progress Note CHIEF COMPLAINT: [...] (Active) Wound Image 10/18/23 1046 Site Assessment Pale;[place];Sloughing;Maceration 10/18/23 1046 Carine-Wound Assessment Maceration 10/18/23 1046 Wound Length (cm) 1.4 cm 10/18/23 104 Wound Width (cm) 2.4 cm 10/18/23 104 Wound Surface Area (cm^2) 3.36 cm^2 10/18/23 104 Wound Depth (cm) 0.3 cm 10/18/231045 Wound Volume (cm^3) 1.008 cm^3 10/18/23 104 Wound Healing % -152 10/18/23 104 Drainage Description Serosanguineous 10/18/23 104 Odor Mild 10/18/231045 Drainage Amount Large 10/18/23 104 Treatments Cleansed 10/18/23 1046 Primary Dressing Alginate 10/11/23 1000 Secondary Dressing 4x4 gauze 10/11/23 1000 Secured with Kerlex;Silk tape 10/11/23 1000 Compression Unna boot;Multilayer compression wrap - 3 layers 10/11/23 1000 Dressing Status New dressing;Clean, dry & intact 10/04/23 1407 Wound/Incision 08/23/23 Venous Ulcer Toe - third Right (Active) Wound Image 10/18/23 1044 Site Assessment Maceration;Pale;[place];Sloughing 10/18/23 1044 Carine-Wound Assessment Macerated;Pale 10/18/23 1044 [...] (Active) Wound Image 10/18/23 1049 Site Assessment Maceration;[place] 10/18/23 1049 Carine-Wound Assessment Moist 10/18/23 1049 [...] attached Discharge Instructions documented in this encounter [facility] 10-18-2023 Hospital Discharge instructions Marycarmen Corona RN - 10/18/2023 10:15 AM EDT Return Appointment in: 1 week - Should you experience any significant changes in your wound(s) or have any questions regarding your home care instructions please contact the wound center at [phone] If after regular business hours, please call [...] Take antibiotic as directed Nursing Care Facility: [facility] Wound Treatment: Wound: right toes Dressing Frequency: Dressing in place every other day Wound Cleansing: Cleanse with antibacterial soap and water, pat dry Primary Dressing: Calcium Alginate 4/4 Secondary Dressing: Superabsorbent pad or sorbex Secure With: Kerlex Roll gauze 4", Silk Tape 1" Compression: Sure press or Setopress Apply Barrier Cream to bilateral buttocks and sacral area daily and PRN. documented in this encounter [facility] 10-18-2023 Hospital Discharge instructions Marycarmen Corona RN - 10/18/2023 10:15 AM EDT Return Appointment in: 1 week - Should you experience any significant changes in your wound(s) or have any questions regarding your home care instructions please contact the wound center at [phone] If after regular business hours, please call [...] Take antibiotic as directed Nursing Care Facility: [facility] Wound Treatment: Wound: right toes Dressing Frequency: Dressing in place every other day Wound Cleansing: Cleanse with antibacterial soap and water, pat dry Primary Dressing: Calcium Alginate 4/4 Secondary Dressing: Superabsorbent pad or sorbex Secure With: Kerlex Roll gauze 4", Silk Tape 1" Compression: Sure press or Setopress Apply Barrier Cream to bilateral buttocks and sacral area daily and PRN. documented in this encounter [facility] 10-18-2023 Miscellaneous Notes Encounter addended by: Marycarmen Corona RN on: 10/20/2023 11:57 AM Actions taken: LDA properties accepted documented in this encounter [facility] 10-18-2023 Note Encounter addended b y: Marycarmen Corona RN on: 10/20/2023 11:57 AM Actions taken: LDA properties accepted [facility] 10-18-2023 Note [facility] Wound Care Progress Note CHIEF COMPLAINT: [...] (Active) Wound Image 10/18/23 1046 Site Assessment Pale;[place];Sloughing;Maceration 10/18/23 1046 Carine-Wound Assessment Maceration 10/18/23 1046 [...] (Active) Wound Image 10/18/23 1044 Site Assessment Maceration;Pale;[place];Sloughing 10/18/23 1044 Carine-Wound Assessment Macerated;Pale 10/18/23 1044 [...] (Active) Wound Image 10/18/23 1049 Site Assessment Maceration;[place] 10/18/23 104 Carine-Wound Assessment Moist 10/18/23 1049 Wound Length [...] water Order Specifi (more content not included)... 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 [facility] Wound Care Progress Note CHIEF COMPLAINT: [...] (Active) Wound Image 10/04/23 1407 Site Assessment Granulation;Painful;Pale;[place] 10/11/23 09 Carine-Wound Assessment Maceration 10/11/23 09 Wound Length (cm) 1.5 cm 10/11/23 09 Wound Width (cm) 1.7 cm 10/11/23 09 Wound Surface Area (cm^2) 2.55 cm^2 10/11/23 09 Wound Depth (cm) 0.1 cm 10/11/23 09 Wound Volume (cm^3) 0.255 cm^3 10/11/23 0909 [...] - third Right (Active) Wound Image 10/11/23 09 Site Assessment Dark edges;Painful;[place];Sloughing 10/11/23912 Carine-Wound Assessment Moist ;Dark edges 10/11/23 09 Wound Length (cm) 0.6 cm 10/11/23 09 Wound Width (cm) 0.5 cm 10/11/23 09 Wound Surface Area (cm^2) 0.3 cm^2 10/11/23912 Wound Depth (cm) 0.1 cm 10/11/23 0913 Wound Volume (cm^3) 0.03 cm^3 10/11/23 0913 Wound Healing % 76 10/11/2313 Drainage Description Serosanguineous;[place] 10/11/23912 Odor None 10/11/23912 Drainage Amount Moderate 10/11/2313 Treatments Cleansed 10/11/23 0913 Primary Dressing Alginate [...] provider verified the correct patient, procedure, equipment, technical support coordinator, and site/side marked as required. Debridement Details [...] provider verified the correct patient, procedure, equipment, technical support coordinator, and site/side marked as required. Debridement Details [...] attached Discharge Instructions documented in this encounter [facility] 10-11-2023 Hospital Discharge instructions Debbie Mckeon RN - 10/11/2023 8:45 AM EDT Return Appointment in: 1 week - Should you experience any significant changes in your wound(s) or have any questions regarding your home care instructions please contact the wound center at [phone] If after regular business hours, please call [...] help with wound healing Nursing Care Facility: [facility] Wound Treatment: Wound: right toes Dressing Frequency: Keep dressing in place all week Wound Cleansing: May shower with protection - Protect wound and dressing with water repellant cover/cast cover (e.g., large plastic bag) which can be obtained at [facility] and may take shower. Hold Collagen AG for now Secondary Dressing: Calcium Alginate 4x4 Secure With: Kerlex Roll gauze 4", Silk Tape 1" Compression: Unna boot & multilayer compression wrap - 3 layers (cover toes) Apply Barrier Cream to bilateral buttocks and sacral area daily and PRN. documented in this encounter [facility] 10-11-2023 Note [facility] Wound Care Progress Note CHIEF COMPLAINT: [...] (Active) Wound Image 10/04/23 1407 Site Assessment Granulation;Painful;Pale;[place] 10/11/23 0909 Carine-Wound Assessment Maceration 10/11/23 [...] (Active) Wound Image 10/11/23912 Site Assessment Dark edges;Painful;[place];Sloughing 10/11/23912 Carine-Wound Assessment Moist ;Dark edges 10/11/23912 Wound Length (cm) 0.6 cm 10/11/23912 Wound Width (cm) 0.5 cm 10/11/23912 Wound Surface Area (cm^2) 0.3 cm^2 10/11/23912 Wound Depth (cm) 0.1 cm 10/11/23912 Wound Volume (cm^3) 0.03 cm^3 10/11/23912 Wound Healing % 76 10/11/23912 Drainage Description Serosanguineous;[place] 10/11/23912 Odor None 10/11/23912 Drainage Amount Moderate 10/11/2313 Treatments Cleansed 10/11/23912 Primary Dressing Alginate 10/11/23 1000 Secondary Dressing [...] provider verified the correct patient, procedure, equipment, technical support coordinator, and site/side marked as required. Debridement Details [...] provider verified the correct patient, procedure, equipment, technical support coordinator, and site/side marked as required. Debridement Details Performed by: physician Debridement type: surgical Level of debridement: subcutaneous tissue Pain control: lidocaine 2% Pain control administration type: topical Pre-debridement measurements Length (cm): 0. (more content not included)... 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 [facility] Wound Care Progress Note CHIEF COMPLAINT: [...] Temp 36.5 C (97.7 F) Ht 5' 10" (1.778 m) Wt 253 lb (115 kg) [...] Ulcer Toe- second Right (Active) Wound Image 10/04/231406 Site Assessment Painful;Pale;[place];Sloughing 10/04/231406 Carine-Wound Assessment Macerated 10/04/23 140 Wound Length (cm) 1.5 cm 10/04/23 140 Wound Width (cm) 1.5 cm 10/04/231406 Wound Surface Area (cm^2) 2.25 cm^2 10/04/23 140 Wound Depth (cm) 0.2 cm 10/04/23 140 Wound Volume (cm^3) 0.45 cm^3 10/04/231406 Wound Healing % -13 10/04/23 140 Drainage Description Serosanguineous;[place] 10/04/23 140 Odor None 10/04/231406 Drainage Amount Moderate 10/04/23 140 Treatments Cleansed 10/04/231406 Primary Dressing Collagen Ag;Calcium alginate 10/04/231406 Secondary Dressing 4x4 gauze 10/04/23 140 Secured with Kerlex;Paper tape 10/04/231406 Compression Unna boot;Multilayer compression wrap - 3 layers 10/04/23 140 Dressing Status New dressing;Clean, dry & intact 10/04/23 140 Wound/Incision 08/23/23 Venous Ulcer Toe - third Right (Active) Wound Image 10/04/23 141 Site Assessment [place] 10/04/23 141 Carine-Wound Assessment Macerated 10/04/23 141 Wound Length (cm) 0.5 cm 10/04/23 141 Wound Width (cm) 0.3 cm 10/04/23 141 Wound Surface Area (cm^2) 0.15 cm^2 06/26/24 1410 Wound Depth (cm) 0.2 cm 10/04/23 1410 Wound Volume (cm^3) 0.03 cm^3 10/04/23 1410 Wound Healing % 76 10/04/23 1410 Drainage Description Serosanguineous;[place] 10/04/23 1410 Odor None 10/04/23 1410 Drainage Amount Moderate 10/04/23 1410 Treatments Cleansed 10/04/23 1410 Primary Dressing Calcium alginate;Collagen Ag 10/04/23 141 Secondary Dressing 4x4 gauze 10/04/23 1410 Secured with Kerlex;Paper tape 10/04/23 141 Compression Unna boot;Multilayer compression wrap - 3 [...] provider verified the correct patient, procedure, equipment, technical support coordinator, and site/side marked as required. Debridement Details [...] provider verified the correct patient, procedure, equipment, technical support coordinator, and site/side marked as required. Debridement Details [...] attached Discharge Instructions documented in this encounter [facility] 10-04-2023 Hospital Discharge instructions Lucinda Lima RN - 10/04/2023 1:45 PM EDT Return Appointment in: 1 week - Should you experience any significant changes in your wound(s) or have any questions regarding your home care instructions please contact the wound center at [phone] If after regular business hours, please call [...] help with wound healing Nursing Care Facility: [facility] Wound Treatment: Wound: right toes Dressing Frequency: Keep dressing in place all week Wound Cleansing: May shower with protection - Protect wound and dressing with water repellant cover/cast cover (e.g., large plastic bag) which can be obtained at [facility] and may take shower. Primary Dressing: Collagen Ag 2x2 Secondary Dressing: Calcium Alginate 4x4 Secure With: Kerlex Roll gauze 4", Silk Tape 1" Compression: Unna boot & multilayer compression wrap - 3 layers (cover toes) Apply Barrier Cream to bilateral buttocks and sacral area daily and PRN. documented in this encounter [facility] 10-04-2023 Note [facility] Wound Care Progress Note CHIEF COMPLAINT: [...] Temp 36.5 ?C (97.7 ?F) Ht 5' 10" (1.778 m) Wt 253 lb (115 kg) [...] (Active) Wound Image 10/04/23 1407 Site Assessment Painful;P[place] 10/04/23 1407 Carine-Wound Assessment Macerated 10/04/23 1407 Wound Length [...] (Active) Wound Image 10/04/23 1410 Site Assessment [place] 10/04/23 141 Carine-Wound Assessment Macerated 10/04/23 1410 Wound Length [...] boot;Multilayer compression wrap - 3 layers 10/04/23 1410 Dressing Status New dressing;Clean, dry & intact 10/04/23 1410 Debridement Wound/Incision 08/23/23 Venous Ulcer Toe- second Right Performed by: Julissa Taylor DO Authorized by: Julissa Taylor, DO Consent Consent obtained? verbal Consent given by: patient Risks discussed? procedural risks discussed Immediately prior to the procedure a time out was called and the performing provider verified the correct patient, procedure, equipment, technical support coordinator, and site/side marked as required. Debridement Details [...] provider verified the correct patient, procedure, equipment, technical support coordinator, and site/side marked as required. Debridement Details Performed by: physician Debridement type: surgical Level of debridement: subcutaneous tissue Pain control: lidocaine 2% Pain control administration type: topical Pre-debridem (more content not included)... [facility] 09-27-2023 History of Present illness Narrative Images from the original note were not included. [facility] Wound Care Progress Note CHIEF COMPLAINT: [...] Temp 36.5 C (97.7 F) Ht 5' 10" (1.778 m) Wt 253 lb (115 kg) [...] Toe- second Right (Active) Wound Image 09/27/23 132 Site Assessment Maceration;Pale;[place];Sloughing;Yesenia nful 09/27/23 1322 Carine-Wound Assessment Macerated 09/27/23 [...] (Active) Wound Image 09/27/23 1320 Site Assessment [place] 09/27/23 1320 Carine-Wound Assessment Macerated 09/27/23 1320 Wound Length (cm) 0.5 cm 09/27/23 1320 Wound Width (cm) 0.3 cm 09/27/23 1320 Wound Surface Area (cm^2) 0.15 cm^2 09/27/23 1320 Wound Depth (cm) 0.2 cm 09/27/23 1320 Wound Volume (cm^3) 0.03 cm^3 09/27/23 1320 Wound Healing % 76 09/27/23 1320 Drainage Description Serosanguineous;[place] 09/27/23 1320 Odor None 09/27/23 132 Drainage Amount Moderate 09/27/23 1320 Treatments Cleansed 09/27/23 1320 Primary Dressing Collagen Ag;Calcium alginate 09/27/23 1320 Secondary Dressing 4x4 gauze 09/27/23 132 Secured [...] attached Discharge Instructions documented in this encounter [facility] 09-27-2023 Hospital Discharge instructions Erika Cruz - 09/27/2023 1:15 PM EDT Return Appointment in: 1 week - Should you experience any significant changes in your wound(s) or have any questions regarding your home care instructions please contact the wound center at [phone] If after regular business hours, please call [...] help with wound healing Nursing Care Facility: [facility] Wound Treatment: Wound: right toes Dressing Frequency: Keep dressing in place all week Wound Cleansing: May shower with protection - Protect wound and dressing with water repellant cover/cast cover (e.g., large plastic bag) which can be obtained at [facility] and may take shower. Primary Dressing: Collagen Ag 2x2 Secondary Dressing: Calcium Alginate 4x4 Secure With: Kerlex Roll gauze 4", Silk Tape 1" Compression: Unna boot & multilayer compression wrap - 3 layers (cover toes) documented in this encounter [facility] 09-27-2023 Hospital Discharge instructions Erika Cruz - 09/27/2023 1:15 PM EDT Return Appointment in: 1 week - Should you experience any significant changes in your wound(s) or have any questions regarding your home care instructions please contact the wound center at [phone] If after regular business hours, please call [...] help with wound healing Nursing Care Facility: [facility] Wound Treatment: Wound: right toes Dressing Frequency: Keep dressing in place all week Wound Cleansing: May shower with protection - Protect wound and dressing with water repellant cover/cast cover (e.g., large plastic bag) which can be obtained at [facility] and may take shower. Primary Dressing: Collagen Ag 2x2 Secondary Dressing: Calcium Alginate 4x4 Secure With: Kerlex Roll gauze 4", Silk Tape 1" Compression: Unna boot & multilayer compression wrap - 3 layers (cover toes) documented in this encounter [facility] 09-27-2023 Miscellaneous Notes Encounter addended by: Marycarmen Corona RN on: 10/05/2023 3:58 PM Actions taken: Charge Capture section accepted documented in this encounter [facility] 09-27-2023 Note Encounter addended b y: Marycarmen Corona RN on: 10/05/2023 3:58 PM Actions taken: Charge Capture section accepted [facility] 09-27-2023 Note Encounter addended b y: Marycarmen Corona RN on: 10/05/2023 3:58 PM Actions taken: Charge Capture section accepted [facility] 09-27-2023 Note [facility] Wound Care Progress Note CHIEF COMPLAINT: [...] Temp 36.5 ?C (97.7 ?F) Ht 5' 10" (1.778 m) Wt 253 lb (115 kg) [...] (Active) Wound Image 09/27/23 1322 Site Assessment Maceration;Pale;[place];Sloughing;Yesenia nful 09/27/23 1322 Carine-Wound Assessment [place] 09/27/23 [...] (Active) Wound Image 09/27/23 132 Site Assessment [place] 09/27/23 1320 Carine-Wound Assessment Macerated 09/27/23 1320 [...] Unna boot Please see attached Discharge Instructions [facility] 09-20-2023 History of Present illness Narrative Images from the original note were not included. [facility] Wound Care Progress Note CHIEF COMPLAINT: [...] Temp 36.2 C (97.2 F) Ht 5' 10" (1.778 m) Wt 253 lb (115 kg) [...] Toe- second Right (Active) Wound Image 09/20/23 144 Site Assessment Maceration;[place] 09/20/23 144 Carine-Wound Assessment Macerated 09/20/23 144 Wound Length (cm) 1.9 cm 09/20/23 144 Wound Width (cm) 2.2 cm 09/20/23 144 Wound Surface Area (cm^2) 4.18 cm^2 09/20/23 144 Wound Depth (cm) 0.2 cm 09/20/23 144 Wound Volume (cm^3) 0.836 cm^3 09/20/23 144 Wound Healing % -109 09/20/23 144 Drainage Description Serosanguineous;[place] 09/20/23 144 Odor None 09/20/23 144 Drainage Amount Moderate 09/20/23 144 Treatments Cleansed 09/20/23 1447 Primary Dressing Calcium alginate;Collagen Ag 09/06/23 1356 Secondary Dressing 4x4 gauze;Sorbex 09/06/23 1356 Secured with Kerlex;Paper tape 09/06/23 1356 Compression Multilayer compression wrap - 3 layers;Unna boot 09/06/23 1356 Dressing Status New dressing;Clean, dry & intact 09/06/23 1356 Wound/Incision 08/23/23 Venous Ulcer Toe - third Right (Active) Wound Image 09/20/23 144 Site Assessment Pale;[place];Maceration 09/20/23 144 Carine-Wound Assessment Maceration 09/20/23 144 Wound Length (cm) 0.7 cm 09/20/23 144 Wound Width (cm) 0.5 cm 09/20/23 144 Wound Surface Area (cm^2) 0.35 cm^2 09/20/23 144 Wound Depth (cm) 0.2 cm 09/20/23 1445 Wound Volume (cm^3) 0.07 cm^3 09/20/23 1445 Wound Healing % 44 09/20/23 1445 Drainage Description Serosanguineous;[place] 09/20/23 1445 Odor None 09/20/23 1445 Drainage Amount Moderate 09/20/23 1445 Treatments Cleansed 09/20/23 1445 Primary Dressing Calcium alginate;Collagen Ag 09/06/23 1354 Secondary Dressing 4x4 gauze;Sorbex 09/06/23 1354 Secured with Kerlex;Silk tape 09/06/23 1354 Compression Multilayer compression wrap - 3 layers;Unna boot 09/06/23 1354 Dressing Status New dressing;Clean, dry & intact 09/06/23 135 1. Non-pressure chronic ulcer of other part [...] attached Discharge Instructions documented in this encounter [facility] 09-20-2023 Hospital Discharge instructions Marycarmen Corona RN - 09/20/2023 2:15 PM EDT Return Appointment in: 1 week - Should you experience any significant changes in your wound(s) or have any questions regarding your home care instructions please contact the wound center at [phone] If after regular business hours, please call [...] help with wound healing Nursing Care Facility: [facility] Wound Treatment: Wound: right toes Dressing Frequency: Keep dressing in place all week Wound Cleansing: May shower with protection - Protect wound and dressing with water repellant cover/cast cover (e.g., large plastic bag) which can be obtained at [facility] and may take shower. Primary Dressing: Collagen Ag 2x2 Secondary Dressing: Calcium Alginate 4x4 Secure With: Kerlex Roll gauze 4", Silk Tape 1" Compression: Unna boot & multilayer compression wrap - 3 layers (cover toes) documented in this encounter [facility] 09-20-2023 Note [facility] Wound Care Progress Note CHIEF COMPLAINT: [...] Temp 36.2 ?C (97.2 ?F) Ht 5' 10" (1.778 m) Wt 253 lb (115 kg) [...] (Active) Wound Image 09/20/23 1447 Site Assessment Maceration;Pale;[place];Sloughing 09/20/23 144 Carine-Wound Assessment Macerated 09/20/23 1447 Wound Length (cm) 1.9 cm 09/20/23 1447 Wound Width (cm) 2.2 cm 09/20/23 1447 Wound Surface Area (cm^2) 4.18 cm^2 09/20/23 1447 Wound Depth (cm) 0.2 cm 09/20/23 1447 Wound Volume (cm^3) 0.836 cm^3 09/20/23 1447 Wound Healing % -109 09/20/23 1447 Drainage Description Serosanguineous;[place] 09/20/23 144 Odor None 09/20/23 1447 Drainage Amount Moderate [...] (Active) Wound Image 09/20/23 1445 Site Assessment Pale;[place];Maceration 09/20/23 1445 Carine-Wound Assessment Maceration 09/20/23 1445 Wound Length (cm) 0.7 cm 09/20/23 1445 Wound Width (cm) 0.5 cm 09/20/23 1445 Wound Surface Area (cm^2) 0.35 cm^2 09/20/23 1445 Wound Depth (cm) 0.2 cm 09/20/23 1445 Wound Volume (cm^3) 0.07 cm^3 09/20/23 1445 Wound Healing % 44 09/20/23 1445 Drainage Description Serosanguineous;[place] 09/20/23 1445 Odor None 09/20/23 144 Drainage Amount Moderate 09/20/23 1445 Treatments Cleansed 09/20/23 1445 Primary Dressing Calcium alginate;Collagen Ag 09/06/23 135 Secondary Dressing 4x4 gauze;Sorbex 09/06/23 135 Secured with Kerlex;Silk tape 09/06/23 1354 Compression [...] Unna boot Please see attached Discharge Instructions [facility] 09-13-2023 History of Present illness Narrative Associated Order(s): Debridement; Debridement Post-Procedure Diagnose(s): Lymphedema; Venous insufficiency (chronic) (peripheral); 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 [facility] Wound Care Progress Note CHIEF COMPLAINT: [...] (Active) Wound Image 09/13/23 1432 Site Assessment Maceration;[place];Pale;Sloughing 09/13/23 1432 Carine-Wound Assessment Macerated 09/13/23 1432 Wound Length (cm) 1.9 cm 09/13/23 1432 Wound Width (cm) 2.2 cm 09/13/23 1432 Wound Surface Area (cm^2) 4.18 cm^2 09/13/23 1432 Wound Depth (cm) 0.2 cm 09/13/23 1432 Wound Volume (cm^3) 0.836 cm^3 09/13/23 1432 Wound Healing % -109 09/13/23 143 Drainage Description Serosanguineous 09/13/23 1432 Odor Mild [...] (Active) Wound Image 09/13/23 1434 Site Assessment Maceration;Pale;[place] 09/13/23 1434 Carine-Wound Assessment Maceration 09/13/23 1434 [...] provider verified the correct patient, procedure, equipment, technical support coordinator, and site/side marked as required. Debridement Details [...] provider verified the correct patient, procedure, equipment, technical support coordinator, and site/side marked as required. Debridement Details [...] attached Discharge Instructions documented in this encounter [facility] 09-13-2023 Hospital Discharge instructions Debbie Mckeon RN - 09/13/2023 2:00 PM EDT Return Appointment in: 1 week - Should you experience any significant changes in your wound(s) or have any questions regarding your home care instructions please contact the wound center at [phone] If after regular business hours, please call [...] help with wound healing Nursing Care Facility: [facility] Wound Treatment: Wound: right toes & lower leg Dressing Frequency: Keep dressing in place all week Wound Cleansing: May shower with protection - Protect wound and dressing with water repellant cover/cast cover (e.g., large plastic bag) which can be obtained at [facility] and may take shower. Primary Dressing: Collagen Ag 2x2 Secondary Dressing: Calcium Alginate 4x4 & hydralock Secure With: Kerlex Roll gauze 4", Silk Tape 1" Compression: Unna boot & multilayer compression wrap - 3 layers (cover toes) documented in this encounter [facility] 09-13-2023 Note [facility] Wound Care Progress Note CHIEF COMPLAINT: [...] (Active) Wound Image 09/13/23 1432 Site Assessment Maceration;[place];Pale;Sloughing 09/13/23 1432 Carine-Wound Assessment Macerated 09/13/23 1432 [...] (Active) Wound Image 09/13/23 1434 Site Assessment Maceration;Pale;[place] 09/13/23 1434 Carine-Wound Assessment Maceration 09/13/23 1434 [...] provider verified the correct patient, procedure, equipment, technical support coordinator, and site/side marked as required. Debridement Details [...] provider verified the correct patient, procedure, equipment, technical support coordinator, and site/side marked as required. Debridement Details Performed by: larry (more content not included)... [facility] 09-06-2023 History of Present illness Narrative Associated Order(s): Debridement; Debridement; Debridement Post-Procedure Diagnose(s): Lymphedema; Venous insufficiency (chronic) (peripheral); Non-pressure chronic ulcer right lower leg, limited to breakdown skin (HCC) Images from the original note were not included. [facility] Wound Care Progress Note CHIEF COMPLAINT: [...] Temp 36.4 C (97.6 F) Ht 5' 10" (1.778 m) Wt 253 lb (115 kg) [...] (Active) Wound Image 09/06/23 135 Site Assessment [place];Pale;Sloughing 09/06/231355 Carine-Wound Assessment Moist 09/06/23 135 Wound Length (cm) 1.8 cm 09/06/23 135 Wound Width (cm) 2.5 cm 09/06/23 135 Wound Surface Area (cm^2) 4.5 cm^2 09/06/231355 Wound Depth (cm) 0.2 cm 09/06/23 135 Wound Volume (cm^3) 0.9 cm^3 09/06/23 135 Wound Healing % -125 09/06/23 135 Drainage Description Serosanguineous;Yellow 09/06/231355 Odor Mild 09/06/231355 Drainage Amount Moderate 09/06/231355 Treatments Cleansed 09/06/23 135 Primary Dressing Calcium alginate;Collagen Ag 09/06/23 135 Secondary Dressing 4x4 gauze;Sorbex 09/06/231355 Secured with Kerlex;Paper tape 09/06/231355 Compression Multilayer compression wrap - 3 layers;Unna boot 09/06/23 135 Dressing Status New dressing;Clean, dry & intact 09/06/231355 Wound/Incision 08/23/23 Venous Ulcer Toe - third Right (Active) Wound Image 09/06/23 1354 Site Assessment Pale;[place];Sloughing 09/06/23 135 Carine-Wound Assessment Moist 09/06/23 135 Wound Length (cm) 0.9 cm 09/06/23 1354 Wound Width (cm) 0.9 cm 09/06/23 1354 Wound Surface Area (cm^2) 0.81 cm^2 09/06/23 135 Wound Depth (cm) 0.2 cm 09/06/23 135 Wound Volume (cm^3) 0.162 cm^3 09/06/23 1354 Wound Healing % -29 09/06/23 135 Drainage Description Serosanguineous;Yellow 09/06/23 1354 Odor Mild 09/06/23 135 Drainage Amount Moderate 09/06/23 1354 Treatments Cleansed 09/06/231353 Primary Dressing Calcium alginate;Collagen Ag 09/06/23 135 Secondary Dressing 4x4 gauze;Sorbex 09/06/231353 Secured with Kerlex;Silk tape 09/06/231353 Compression Multilayer compression wrap - 3 layers;Unna boot 09/06/231353 Dressing Status New dressing;Clean, dry & intact 09/06/23 1354 Wound/Incision 08/23/23 Venous Ulcer Leg Right;Circumferential (Active) Wound Image 09/06/23 1349 Site Assessment Pale;Red 09/06/23 1349 Carine-Wound Assessment Pale;[place] 09/06/23 1349 Wound Length (cm) 1.8 cm 09/06/23 1349 Wound Width (cm) 1.2 cm 09/06/239 Wound Surface Area (cm^2) 2.16 cm^2 09/06/23 1349 Wound Depth (cm) 0.1 cm 09/06/23 1349 Wound Volume (cm^3) 0.216 cm^3 09/06/23 [...] (Active) Wound Image 09/06/23 135 Site Assessment Dry;Pale;[place] 09/06/23 135 Carine-Wound Assessment Dry 09/06/231352 Wound Length (cm) 0.6 cm 09/06/231352 Wound Width (cm) 0.1 cm 09/06/231352 Wound Surface Area (cm^2) 0.06 cm^2 09/06/231352 Wound Depth (cm) 0.1 cm 09/06/231352 Wound Volume (cm^3) 0.006 cm^3 09/06/231352 Wound Healing % 82 09/06/231352 Drainage Description Unable to assess 09/06/231352 Odor None 09/06/231352 Drainage Amount None 09/06/231352 Treatments Cleansed 09/06/231352 Primary Dressing Collagen Ag;Calcium alginate 08/30/23 0950 [...] provider verified the correct patient, procedure, equipment, technical support coordinator, and site/side marked as required. Debridement Details [...] provider verified the correct patient, procedure, equipment, technical support coordinator, and site/side marked as required. Debridement Details [...] provider verified the correct patient, procedure, equipment, technical support coordinator, and site/side marked as required. Debridement Details [...] attached Discharge Instructions documented in this encounter [facility] 09-06-2023 Hospital Discharge instructions Bertha Gross RN - 09/06/2023 1:30 PM EDT Return Appointment in: 1 week - Should you experience any significant changes in your wound(s) or have any questions regarding your home care instructions please contact the wound center at [phone] If after regular business hours, please call [...] help with wound healing Nursing Care Facility: [facility] Wound Treatment: Wound: right toes & lower leg Dressing Frequency: Keep dressing in place all week Wound Cleansing: May shower with protection - Protect wound and dressing with water repellant cover/cast cover (e.g., large plastic bag) which can be obtained at [facility] and may take shower. Primary Dressing: Collagen Ag 2x2 Secondary Dressing: Calcium Alginate 4x4 & hydralock Secure With: Kerlex Roll gauze 4", Silk Tape 1" Compression: Unna boot & multilayer compression wrap - 3 layers (cover toes) documented in this encounter [facility]06-20[facility] Progress Note CHIEF COMPLAINT: Wound [...] Temp 36.4 ?C (97.6 ?F) Ht 5' 10" (1.778 m) Wt 253 lb (115 kg) [...] (Active) Wound Image 09/06/23 135 Site Assessment [place];Pale;[place] 09/06/23 135 Carine-Wound Assessment Moist 09/06/23 135 Wound Length (cm) 1.8 cm 09/06/23 135 Wound Width (cm) 2.5 cm 09/06/23 135 Wound Surface Area (cm^2) 4.5 cm^2 09/06/23 135 Wound Depth (cm) 0.2 cm 09/06/23 1356 Wound Volume (cm^3) 0.9 cm^3 09/06/23 135 Wound Healing % -125 09/06/23 135 Drainage Description Serosanguineous;Yellow 09/06/23 1356 Odor Mild 09/06/231355 Drainage Amount Moderate 09/06/23 1356 Treatments Cleansed 09/06/23 135 Primary Dressing Calcium alginate;Collagen Ag 09/06/23 135 Secondary Dressing 4x4 gauze;Sorbex 09/06/23 135 Secured with Kerlex;Paper tape 09/06/23 135 Compression Multilayer compression wrap - 3 layers;Unna boot 09/06/231355 Dressing Status New dressing;Clean, dry & intact 09/06/23 1356 Wound/Incision 08/23/23 Venous Ulcer Toe - third Right (Active) Wound Image 09/06/231353 Site Assessment Pale;[place];Sloughing 09/06/231353 Carine-Wound Assessment Moist 09/06/231353 Wound Length (cm) 0.9 cm 09/06/231353 Wound Width (cm) 0.9 cm 09/06/231353 Wound Surface Area (cm^2) 0.81 cm^2 09/06/231353 Wound Depth (cm) 0.2 cm 09/06/231353 Wound Volume (cm^3) 0.162 cm^3 09/06/231353 Wound Healing % -29 09/06/231353 Drainage Description Serosanguineous;Yellow 09/06/231353 Odor Mild 09/06/231353 Drainage Amount Moderate 09/06/231353 Treatments Cleansed 09/06/231353 Primary Dressing Calcium alginate;Collagen Ag 09/06/231353 Secondary Dressing 4x4 gauze;Sorbex 09/06/231353 Secured with Kerlex;Silk tape 09/06/231353 Compression Multilayer compression wrap - 3 layers;Unna boot 09/06/231353 Dressing Status New dressing;Clean, dry & intact 09/06/231353 Wound/Incision 08/23/23 Venous Ulcer Leg Right;Circumferential (Active) Wound Image 09/06/231348 Site Assessment Pale;Red 09/06/231348 Carine-Wound Assessment Pale;[place] 09/06/231348 Wound Length (cm) 1.8 cm 09/06/231348 Wound Width (cm) 1.2 cm 09/06/231348 Wound Surface Area (cm^2) 2.16 cm^2 09/06/231348 Wound Depth (cm) 0.1 cm 09/06/231348 Wound Volume (cm^3) 0.216 cm^3 09/06/231348 Wound Healing % 98 09/06/23 134 Drainage Description Serosanguineous 09/06/23 1349 Odor None 09/06/23 1349 Drainage Amount Small 09/06/23 1349 Treatments Cleansed 09/06/23 1349 Primary Dressing Calcium Alginate AG 09/06/23 1349 Secondary Dressing Sorbex 09/06/23 1349 Secured with Kerlex;Silk tape 09/06/23 1349 Compression Multilayer compression wrap - 3 layers;Unna boot 09/06/23 134 Periwound Dressing Moisturizing lotion 08/30/23 0945 Dressing Status New dressing;Clean, dry & intact 09/06/23 1349 Wound/Incision 08/30/23 Skin Tear Calf Right (Active) Wound Image 09/06/23 135 Site Assessment Dry;Pale;[place] 09/06/23 135 Carine-Wound Assessment Dry 09/06/231352 Wound Length (cm) 0.6 cm 09/06/231352 Wound Width (cm) 0.1 cm 09/06/231352 Wound Surface Area (cm^2) 0.06 cm^2 09/06/23 135 Wound Depth (cm) 0.1 cm 09/06/23 135 Wound Volume (cm^3) 0.006 cm^3 09/06/23 135 Wound Healing % 82 09/06/23 135 Drainage Description Unable to assess 09/06/23 135 Odor None 09/06/23 135 Drainage Amount None 09/06/23 1353 Treatments Cleansed 09/06/23 1353 Primary Dressing Collagen Ag;Calcium alginate 08/30/23 0950 Secondary Dressing 4x4 gauze 08/30/23 0950 Secured with Kerlex;Paper tape 08/30/23 0950 Compression Unna boot;Multil (more content not included)... 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 [facility] Wound Care Progress Note CHIEF COMPLAINT: [...] Temp 36.3 C (97.4 F) Ht 5' 10" (1.778 m) Wt 253 lb (115 kg) [...] Right (Active) Wound Image 08/30/23942 Site Assessment Pale;[place];Sloughing 08/30/23942 Carine-Wound Assessment Moist 08/30/23942 Wound Length (cm) 1.3 cm 08/30/23942 Wound Width (cm) 2.5 cm 08/30/23942 Wound Surface Area (cm^2) 3.25 cm^2 08/30/23 09 Wound Depth (cm) 0.1 cm 08/30/23942 Wound Volume (cm^3) 0.325 cm^3 08/30/23942 Wound Healing % 19 08/30/23 09 Drainage Description Serosanguineous 08/30/23942 Odor Mild 08/30/23942 Drainage Amount Small 08/30/23942 Treatments Cleansed 08/30/23942 Primary Dressing Calcium alginate;Collagen Ag 08/30/23942 Secondary Dressing 4x4 gauze 05/22/24 0943 Secured with Kerlex;Paper tape 08/30/23 0943 Dressing Status New dressing;Clean, dry & intact 08/30/2343 Wound/Incision 08/23/23 Venous Ulcer Toe - third Right (Active) Wound Image 08/30/23939 Site Assessment Pale;[place];Sloughing 08/30/23939 Carine-Wound Assessment Moist 08/30/23939 Wound Length [...] Dressing Status New dressing;Clean, dry & intact 08/30/2340 Wound/Incision 08/23/23 Venous Ulcer Leg Right;Circumferential (Active) Wound Image 08/30/23944 Site Assessment [place];Red 08/30/23944 Carine-Wound Assessment Dry 08/30/2345 Wound Length (cm) 2.5 cm 08/30/23944 Wound Width (cm) 1.5 cm 08/30/23944 Wound Surface Area (cm^2) 3.75 cm^2 08/30/23944 Wound Depth (cm) 0.1 cm 08/30/23944 Wound Volume (cm^3) 0.375 cm^3 08/30/23944 Wound Healing % 97 08/30/23944 Drainage Description Serosanguineous 08/30/23944 Odor None 08/30/23944 Drainage Amount Small 08/30/2345 Treatments Cleansed 08/30/23944 Primary Dressing Calcium alginate;Collagen Ag 08/30/23944 Secondary Dressing 4x4 gauze 05/22/24 0945 Secured with Kerlex;Paper tape 08/30/23 0945 [...] provider verified the correct patient, procedure, equipment, technical support coordinator, and site/side marked as required. Debridement Details [...] attached Discharge Instructions documented in this encounter [facility] 08-30-2023 History of Present illness Narrative Associated Order(s): Debridement Post-Procedure Diagnose(s): Venous insufficiency (chronic) (peripheral); Non-pressure chronic ulcer right lower leg, limited to breakdown skin (HCC) Images from the original note were not included. [facility] Wound Care Progress Note CHIEF COMPLAINT: [...] Temp 36.3 C (97.4 F) Ht 5' 10" (1.778 m) Wt 253 lb (115 kg) [...] Right (Active) Wound Image 08/30/23942 Site Assessment Pale;[place];Sloughing 08/30/23942 Carine-Wound Assessment Moist 08/30/23942 Wound Length (cm) 1.3 cm 08/30/23942 Wound Width (cm) 2.5 cm 08/30/23942 Wound Surface Area (cm^2) 3.25 cm^2 08/30/2343 Wound Depth (cm) 0.1 cm 08/30/23942 Wound Volume (cm^3) 0.325 cm^3 08/30/23 0943 Wound Healing % 19 08/30/23 0943 Drainage Description Serosanguineous 08/30/23 0943 Odor Mild 08/30/2343 Drainage Amount Small 08/30/23 0943 Treatments Cleansed 08/30/2343 Primary Dressing Calcium alginate;Collagen Ag 08/30/23942 Secondary Dressing 4x4 gauze 08/30/2343 Secured with Kerlex;Paper tape 08/30/23942 Dressing Status New dressing;Clean, dry & intact 08/30/23942 Wound/Incision 08/23/23 Venous Ulcer Toe - third Right (Active) Wound Image 08/30/23939 Site Assessment Pale;[place];Sloughing 08/30/23939 Carine-Wound Assessment Moist 08/30/23939 Wound Length (cm) 1 cm 08/30/23939 Wound Width (cm) 0.5 cm 08/30/23939 Wound Surface Area (cm^2) 0.5 cm^2 08/30/23939 Wound Depth (cm) 0.2 cm 08/30/2340 Wound Volume (cm^3) 0.1 cm^3 08/30/23939 Wound Healing % 21 08/30/2340 Drainage Description Serosanguineous 08/30/2340 Odor Mild 08/30/2340 Drainage Amount Small 08/30/2340 Treatments Cleansed 08/30/2340 Primary Dressing Calcium alginate;Collagen Ag 08/30/2340 Secondary Dressing 4x4 gauze 08/30/23939 Secured with Kerlex;Paper tape 08/30/23939 Dressing Status New dressing;Clean, dry & intact 08/30/2340 Wound/Incision 08/23/23 Venous Ulcer Leg Right;Circumferential (Active) Wound Image 08/30/23944 Site Assessment [place];Red 08/30/23944 Carine-Wound Assessment Dry 08/30/23944 Wound Length (cm) 2.5 cm 08/30/23944 Wound Width (cm) 1.5 cm 08/30/23944 Wound Surface Area (cm^2) 3.75 cm^2 08/30/23 [...] provider verified the correct patient, procedure, equipment, technical support coordinator, and site/side marked as required. Debridement Details [...] attached Discharge Instructions documented in this encounter [facility] 08-30-2023 Hospital Discharge instructions Debbie Mckeon RN - 08/30/2023 9:30 AM EDT Return Appointment in: 1 week - Should you experience any significant changes in your wound(s) or have any questions regarding your home care instructions please contact the wound center at [phone] If after regular business hours, please call [...] help with wound healing Nursing Care Facility: [facility] Wound Treatment: Wound: right toes & lower leg Dressing Frequency: Keep dressing in place all week Wound Cleansing: May shower with protection - Protect wound and dressing with water repellant cover/cast cover (e.g., large plastic bag) which can be obtained at [facility] and may take shower. Primary Dressing: Collagen Ag 2x2 Secondary Dressing: Calcium Alginate 4x4 & hydralock Secure With: Kerlex Roll gauze 4", Silk Tape 1" Compression: Unna boot & multilayer compression wrap - 3 layers (cover toes) documented in this encounter [facility] 08-30-2023 Hospital Discharge instructions Debbie Mckeon RN - 08/30/2023 9:30 AM EDT Return Appointment in: 1 week - Should you experience any significant changes in your wound(s) or have any questions regarding your home care instructions please contact the wound center at [phone] If after regular business hours, please call [...] help with wound healing Nursing Care Facility: [facility] Wound Treatment: Wound: right toes & lower leg Dressing Frequency: Keep dressing in place all week Wound Cleansing: May shower with protection - Protect wound and dressing with water repellant cover/cast cover (e.g., large plastic bag) which can be obtained at [facility] and may take shower. Primary Dressing: Collagen Ag 2x2 Secondary Dressing: Calcium Alginate 4x4 & hydralock Secure With: Kerlex Roll gauze 4", Silk Tape 1" Compression: Unna boot & multilayer compression wrap - 3 layers (cover toes) documented in this encounter [facility] 08-30-2023 Miscellaneous Notes Encounter addended by: Marycarmen Corona RN on: 09/01/2023 11:09 AM Actions taken: LDA properties accepted documented in this encounter [facility] 08-30-2023 Note Encounter addended b y: Marycarmen Corona RN on: 09/01/2023 11:09 AM Actions taken: LDA properties accepted [facility] 08-30-2023 Note Encounter addended b y: Marycarmen Corona RN on: 09/01/2023 11:09 AM Actions taken: LDA properties accepted [facility] 08-30-2023 Note [facility] Wound Care Progress Note CHIEF COMPLAINT: [...] Temp 36.3 ?C (97.4 ?F) Ht 5' 10" (1.778 m) Wt 253 lb (115 kg) [...] Right (Active) Wound Image 08/30/23942 Site Assessment Pale;[place];Sloughing 08/30/23942 Carine-Wound Assessment Moist 08/30/23942 Wound Length (cm) 1.3 cm 08/30/23942 Wound Width (cm) 2.5 cm 08/30/23942 Wound Surface Area (cm^2) 3.25 cm^2 08/30/23942 Wound Depth (cm) 0.1 cm 08/30/23942 Wound Volume (cm^3) 0.325 cm^3 08/30/23942 Wound Healing % 19 08/30/23 0943 Drainage Description Serosanguineous 08/30/2343 Odor Mild 08/30/2343 Drainage Amount Small 08/30/23942 Treatments Cleansed 08/30/23942 Primary Dressing Calcium alginate;Collagen Ag 08/30/23942 Secondary Dressing 4x4 gauze 08/30/23942 Secured with Kerlex;Paper tape 08/30/23942 Dressing Status New dressing;Clean, dry & intact 08/30/23942 Wound/Incision 08/23/23 Venous Ulcer Toe - third Right (Active) Wound Image 08/30/23939 Site Assessment Pale;[place];Sloughing 08/30/23939 Carine-Wound Assessment Moist 08/30/23939 Wound Length (cm) 1 cm 08/30/23939 Wound Width (cm) 0.5 cm 08/30/23939 Wound Surface Area (cm^2) 0.5 cm^2 08/30/23939 Wound Depth (cm) 0.2 cm 08/30/23939 Wound Volume (cm^3) 0.1 cm^3 08/30/23939 Wound Healing % 21 08/30/23 09 Drainage Description Serosanguineous 08/30/23 0940 Odor Mild 05/22/24 0940 Drainage Amount Small 08/30/23 0940 Treatments Cleansed 08/30/23 0940 Primary Dressing Calcium alginate;Collagen Ag 08/30/23939 Secondary Dressing 4x4 gauze 08/30/23939 Secured with Kerlex;Paper tape 08/30/23 09 Dressing Status New dressing;Clean, dry & intact 08/30/23 0940 Wound/Incision 08/23/23 Venous Ulcer Leg Right;Circumferential (Active) Wound Image 08/30/23944 Site Assessment [place];Red 08/30/23944 Carine-Wound Assessment Dry 08/30/23944 Wound Length (cm) 2.5 cm 08/30/23944 Wound Width (cm) 1.5 cm 08/30/23944 Wound Surface Area (cm^2) 3.75 cm^2 08/30/23944 Wound Depth (cm) 0.1 cm 08/30/23944 Wound Volume (cm^3) 0.375 cm^3 08/30/23944 Wound Healing % 97 08/30/23944 Drainage Description Serosanguineous 08/30/23944 Odor None 08/30/23944 Drainage Amount Small 08/30/23 0945 Treatments Cleansed 08/30/23 0945 Primary Dressing Calcium alginate;Collagen Ag 08/30/23944 Secondary Dressing 4x4 gauze 08/30/23944 Secured with Kerlex;Paper tape 08/30/23944 Compression Multilayer compression wrap - 3 layers;Unna boot 08/30/23944 Periwound Dressing Moisturizing lotion 08/30/23944 Dressing Status New dressing;Clean, dry & intact 08/30/2345 Wound/Incision 08/30/23 Pretibial Proximal;Right (Active) Wound/Incision 08/30/23 Skin Tear Calf Anterior;Proximal;Right (Active) Wound Image 08/30/23 0950 Site Assessment Red 08/30/23 09 Carine-Wound Assessment Bleeding 08/30/23949 Wound Length (cm) 1.7 cm 08/30/23949 Wound Width (cm) 0.2 cm 08/30/23949 Wound Surface Area (cm^2) 0.34 cm^2 08/30/23949 Wound Depth (cm) 0.1 cm 05/22/24 0950 Wound Volume (cm^3) 0.034 cm^3 08/30/23 0950 Drainage Description Red 08/30/23 0950 Odor None 08/30/23949 Drainage Amount Scant 08/30/2350 Treatments Cleansed 08/30/23 0950 Primary Dressing Collagen Ag;Calcium alginate 08/30/23949 Secondary Dressing 4x4 gauze 08/30/23949 Secured with Kerlex;Paper tape 08/30/23949 Compression Unna boot;Multilayer compression wrap - 3 layers 08/30/23949 Periwound Dressing Moisturizing lotion 08/30/23949 Dressing Status New dressing;Clean, dry & intact 08/30/23949 Debridement Woun (more content not included)... [facility] 08-23-2023 Hospital Discharge instructions Marycarmen Corona RN - 08/23/2023 2:00 PM EDT Return Appointment in: 1 week - Should you experience any significant changes in your wound(s) or have any questions regarding your home care instructions please contact the wound center at [phone] If after regular business hours, please call [...]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 defer to MD whether pt's diet should include CHO restriction. Noted potential plans for DC soon. DM diet education not appropriate as pt lives at care home. Monitor weight, labs, I/Os, skin integrity and [...] mass loss Fluid Accumulation: Mild Extremities, Generalized Associate Professor Of Management Strength: Not Performed Nutrition Assessment: 61yo male [...] advanced to minced and moist 06/22 per FRUIT CHECKER, remains with nectar thick liquids. ID and [...] On: Kcal/kg Weight Used for Energy Requirements: [place] Weight for Energy Calculation (kg): 86 kg Total Energy Requirements (kcals/day): 25--30 or 7823-9467 Weight Used for Protein Requirements: [place] Weight in Kg Used for Protein Requirements: [...] Dysphagia - Minced and Moist; Mildly Thick ([place]) Current Oral Intake Average Meal Intake: 26-50%, 51-75%, 76-100% Average Supplements Intake: 76-100% Anthropometric Measures: Height: 188 cm (6' 2.02") Current Body Weight: 113 kg (249 lb 1.9 oz) (06/22 no source) Weight Source: Bed Scale Admission Body Weight: 114 kg (251 lb 5.2 oz) (06/07 stated) Usual Body Weight: 112 kg (248 lb) (No weight hx per chart. Last weight is from 03/2019 248#) % Weight Change (Calculated): 0.5 [place] Body Weight (lbs) (Calculated): 190 lbs [place] Body Weight (Kg) (Calculated): 86 kg % [place] Body Weight (Calculated): 131.1 % BMI (kg/m2) (Calculated): 32 BMI Categories: Obese Class 1 (BMI 30.0-34.9) Nutrition Interventions: Nutrition Education/Counseling: Education not appropriate (Pt not appropriate for DM diet education, he resides at a care home) Coordination of Nutrition Care: Continue to monitor [...] Continue current diet Brandi Ferreira RD Contact: [phone] Cardiology Progress Note Patient Name: Moises Madrid Patient Age: 61 y.o. Date: 06/23/2022 Alert, comfortable stable SUBJECTIVE: pt. In isolation Sob.c/o abd. Pain. No cp. PANCREATITIS. CHOLECYSTITIS. RENAL STONE, Stress . >> nl.. ef=65 % Leucocytosis.>>20. Blood vbodz=323 mg. Gi consult reviewed. More alert. No cp.pulse ox=96. VITALS BP (!) 130/104 (Patient Position: Lying) Pulse 96 Temp 36.4 C (97.6 F) (Oral) Resp 19 Ht 6' 2" (1.88 m) Wt 248 lb 0.3 oz [...] : GIB No Renal : CKD No FIELD ARTILLERY FIRE CONTROL MAN : CVA/TIA No Musculoskeletal system : DJD [...] QT Interval 352 QTC Interval 479 P [place] 43 QRS [place] -36 T Wave [place] 60 NC Interval 160 Impression SINUS TACHYCARDIA LEFT AXIS [...] RENAL STONE, HYPONATREMIA, NA-=129. > RESTRICT FLUIDS. Mo=284. Cr0.88/22. na >>low= 126. NSR. STABLE. SLOWLY IMPROVING. LESS ABD. PAIN. TOLERATING FOOD. PLAN : Chest pain>>>Stress test normal., ef=65 %NO CP TODAY, CP DUE TO PANCREATITIS. Noncardiac cp. CARDIAC STATUS IS STABLE. Essential hypertension, benign>>>Meds Hyperlipidemia>>Meds>>Meds Troponin=0.012. ekg no change, Dr. Dickerson and advise changing Zosyn to Ertapenem therapy on 06/14. However, patient vital signs change becoming more tachycardic, tachypneic and febrile pr=405.>>111. BP= 143/85 MMHG. Ef=65 %. Pt/ot.DIET. UP IN CHAIR. SHELTON HERMAN M.D., [facility] 06/23/2022 Images from the original note were not included. Hospitalist Progress Note 06/22/[id number]: Please page ut ([phone]) for patient care issues. [phone]: Please page [facility] Hospitalist for any issues. Subjective: Admit Date: 06/07/2022 PCP: Demetrius Fenton Room#: 232-06/232-06 A Interval History: No overnight issues. Denies chest pain, sob, abdominal pain, nausea, vomiting, diarrhea, constipation, fevers, or chills. Adult diet Dysphagia - Minced and Moist; Mildly Thick ([place]) @AABY5ANYNYS@ 24HR INTAKE/OUTPUT: Intake/Output Summary (Last 24 hours) at 06/22/2022 1506 Last data filed at 06/22/2022 1200 Gross per 24 hour Intake 75 ml Output 2275 ml Net -2200 ml Past Medical History: Past Medical History: Diagnosis Date Anxiety Ataxia Bipolar disorder ([facility]) Chronic pain Constipation Contracture, right hand Depression Dysphagia Dysphagia Dysphonia Edema GERD (gastroesophageal reflux disease) Headache Hemiplegia (CMS/HCC) ([facility]) Hyperlipidemia Hypertension Insomnia Muscle weakness Neuropathy TBI (traumatic brain injury) LABS: CBC: Recent Labs 06/20/22 0616 06/21/22 0513 06/22/22 0426 WBC 17.8* 16.2* 13.0* RBC 4.33* 4.02* 3.89* HGB 13.2 12.4* 12.1* HCT 38.9* 36.1* 34.7* MCV 90.0 89.8 89.3 RDW 13.7 13.8 13.9 PLT 389 401 377 BMP: Recent Labs 03/13/61506/21/2251206/22/226 NA 126* 126* 129* K 3.8 4.0 3.8 CL 90* 93* 96* CO2 33* 33* 32* BUN 22* 19 17 CREATININE 0.81 0.74 0.66 GLUCOSE 241* 252* 204* CALCIUM 8.2* 8.0* 8.0* ANIONGAP 3 0* 1* LIVER PROFILE: Recent Labs 06/20/2261506/21/2251206/22/22425 AST 43 56* 58* ALT 37 30 [...] C (98.3 F) Resp 22 Ht 6' 2" (1.88 m) Wt 248 lb 0.3 oz [...] and now on RA. # Dysphagia - FRUIT CHECKER following. Recommended Minced and Moist (Dysphagia II), Liquid Consistency Mildly Thick ([place]) # Coronavirus positive - per ID, No [...] Plan Continue dysphagia diet as recommended per FRUIT CHECKER. Meanwhile, ID and surgery signed off. Surgery has cleared for discharge. However sodium still 129. Per nephrology who is managing, sodium will need to be over 130 for discharge. Discharge plan per [facility] is to return to [facility] when medically stable. Tomorrow?? Check daily labs. [...] MD Division of Hospitalist Medicine Inpatient Medical Services/[facility] PAGER: Epic chat Speech-Language Pathology Facility/Department: [facility]-6 DYSPHAGIA TREATMENT NAME: Moises Madrid : [...] Dysphagia - Minced and Moist; Mildly Thick ([place]) Diet effective now Question Answer Comment Diet type Dysphagia - Minced and Moist Fluid consistency Mildly Thick ([place]) 06/22/22 1230 06/13/22 1358 Supplement:Lunch, Dinner; Chocolate [...] II) Current Liquid Diet : Mildly Thick ([place]) Dentition: Edentulous Patient Positioning: Upright in bed [...] (Dysphagia II) Liquid Consistency Recommendation: Mildly Thick ([place]) Recommended Form of Meds: Meds in puree [...] to advance as tolerated. Treatment Plan Requires FRUIT CHECKER Intervention: Yes Frequency/Duration: Frequency of Treatment: 3 [...] . >> nl.. ef=65 % Leucocytosis.>>20. Blood kbqaq=115 mg. Gi consult reviewed. More alert. No cp.pulse ox=96. VITALS BP (!) 135/91 Pulse 100 Temp 36.8 C (98.3 F) Resp 22 Ht 6' 2" (1.88 m) Wt 248 lb 0.3 oz [...] : GIB No Renal : CKD No FIELD ARTILLERY FIRE CONTROL MAN : CVA/TIA No Musculoskeletal system : DJD [...] QT Interval 352 QTC Interval 479 P [place] 43 QRS [place] -36 T Wave [place] 60 NC Interval 160 Impression SINUS TACHYCARDIA LEFT AXIS [...] RENAL STONE, HYPONATREMIA, NA-=129. > RESTRICT FLUIDS. Iw=601. Cr0.88/22. na >>low= 126. SLOWLY IMPROVING. LESS ABD. PAIN. TOLERATING FOOD. PLAN : Chest pain>>>Stress test normal., ef=65 %NO CP TODAY, CP DUE TO PANCREATITIS. Noncardiac cp. CARDIAC STATUS IS STABLE. Essential hypertension, benign>>>Meds Hyperlipidemia>>Meds>>Meds Troponin=0.012. ekg no change, Dr. Dickerson and advise changing Zosyn to Ertapenem therapy on 06/14. However, patient vital signs change becoming more tachycardic, tachypneic and febrile kb=715.>>111. BP= 143/85 MMHG. Ef=65 %. Pt/ot.DIET. SHELTON HERMAN M.D., [facility]ACC 06/22/2022 .. [facility] Subjective/ 61 y.o. [...] from last 7 days Lab Units 06/22/22 04206/21/22 0513 06/20/22 0616 SODIUM mmol/L 129* 126* 126* POTASSIUM mmol/L 3.8 4.0 3.8 CHLORIDE mmol/L 96* 93* 90* CO2 mmol/L 32* 33* 33* BUN mg/dL 17 19 22* CREATININE mg/dL 0.66 0.74 0.81 GLUCOSE mg/dL 204* 252* 241* CALCIUM mg/dL 8.0* 8.0* 8.2* Results from last 7 days Lab Units 06/22/22 04206/21/22 0513 06/20/22 0616 WBC AUTO 10*3/uL 13.0* [...] any questions or concerns. Brenda Blanco APRN, [employer] [facility], [facility] [phone] office I have reviewed the above assessment and plan with the PRODUCT SAFETY LEAD. I agree with above note. Na levels acceptable. C/w protein intake. Treat nausea. Tighter glycemic control needed. Speech-Language Pathology Facility/Department: [facility] HICU DYSPHAGIA TREATMENT NAME: Moises Madrid [...] Dysphagia - Pureed; 1500 ml; Mildly Thick ([place]); Low Fat (less than or equal to 50 gm/day) Diet effective now Question Answer Comment Diet type Dysphagia - Pureed Dietary fluid restriction / 24h: 1500 ml Fluid consistency Mildly Thick ([place]) GI restriction: Low Fat (less than or [...] with medical status. Pt was able to "gum" and prepare softened mi cracker pieces. Cues [...] (Dysphagia II) Liquid Consistency Recommendation: Mildly Thick ([place]) Recommended Form of Meds: Meds in puree [...] Given To: Patient, RN RN name: Kristi Estela Response: Needs reinforcement P: Continue dysphagia POC. Assess tolerance of upgraded diet. Requested minced and moist diet upgrade. Continue mildly thick liquis. Treatment Plan Requires FRUIT CHECKER Intervention: Yes Frequency/Duration: Frequency of Treatment: 3 days/wk for Duration of Treatment: 2 weeks Therapy Time FRUIT CHECKER Individual Minutes Time In: 1537 Time Out: [...] any questions or concerns. Brenda Blanco APRN, [employer] [facility], [facility] [phone] office Seen and examined. Agree with above [...] Dysphagia - Pureed; 1500 ml; Mildly Thick ([place]); Low Fat (less than or equal to [...] (Oral) Resp 20 Ht 1.88 m (6' 2") Wt 113 kg (248 lb 3.8 oz) [...] SIMIN Frausto CNP, 5 mg at 06/21/22 08 aspirin chewable tablet 81 mg, 81 mg, [...] Mani Edgar, DO, 2 tablet at 06/21/22 0852 stomahesive in petrolatum (ET Mix), , Topical, PRN, Bertha Rodrigez SHOVEL LOADER OPERATOR - [employer], Given at 06/18/222122 venlafaxine (Effexor) tablet 75 mg, 75 mg, Oral, BID, Ira Marin SHOVEL LOADER OPERATOR - [employer], 75 mg at 06/21/22 0852 Assessment Data: (CAT1) CBC, BMP, lactate, liver [...] MD Division of Hospitalist Medicine Inpatient Medical Services/[facility] Cardiology Progress Note Patient Name: Moises Madrid Patient Age: 61 y.o. Date: 06/21/2022 Alert, comfortable stable SUBJECTIVE: pt. In isolation Sob.c/o abd. Pain. No cp. PANCREATITIS. CHOLECYSTITIS. RENAL STONE, Stress . >> nl.. ef=65 % Leucocytosis.>>20. Blood lmhdx=662 mg. Gi consult reviewed. More alert. No cp.pulse ox=96. VITALS BP (!) 142/89 (BP Location: Left arm, Patient Position: Lying) Pulse 101 Temp 36.6 C (97.8 F) (Oral) Resp 22 Ht 6' 2" (1.88 m) Wt 248 lb 3.8 oz [...] : GIB No Renal : CKD No FIELD ARTILLERY FIRE CONTROL MAN : CVA/TIA No Musculoskeletal system : DJD [...] QT Interval 352 QTC Interval 479 P [place] 43 QRS [place] -36 T Wave [place] 60 NC Interval 160 Impression SINUS TACHYCARDIA LEFT AXIS [...] RENAL STONE, HYPONATREMIA, NA-=129. > RESTRICT FLUIDS. Qt=675. Cr0.88/22. na >>low= 126. SLOWLY IMPROVING. LESS ABD. PAIN. TOLERATING FOOD. PLAN : Chest pain>>>Stress test normal., ef=65 %NO CP TODAY, CP DUE TO PANCREATITIS. Noncardiac cp. CARDIAC STATUS IS STABLE. Essential hypertension, benign>>>Meds Hyperlipidemia>>Meds>>Meds Troponin=0.012. ekg no change, Dr. Dickerson and advise changing Zosyn to Ertapenem therapy on 06/14. However, patient vital signs change becoming more tachycardic, tachypneic and febrile sg=440.>>111. BP= 143/85 MMHG. Ef=65 %. Pt/ot. SHELTON HERMAN M.D., [facility] 06/21/2022 Images from the original note were not included. [facility] Wound Care Progress Note Moises Madrid [...] GERD (gastroesophageal reflux disease) Headache Hemiplegia (CMS/HCC) ([facility]) Hyperlipidemia Hypertension Insomnia Muscle weakness Neuropathy TBI [...] mouth Nightly. cholecalciferol (Vitamin D3) 1.25 MG (71140 UT) tablet Take by mouth 1 (one) [...] Do not crush, chew, or split. HYDROcodone-acetaminophen ([place]) 5-325 MG tablet Take 1 tablet by [...] Apply topically if needed for dry skin. [place]-3 Fatty Acids (Fish Oil) 1000 MG capsule [...] (97.8 F) (Oral) Resp 22 Ht 6' 2" (1.88 m) Wt 248 lb 3.8 oz (113 kg) SpO2 91% BMI 31.87 kg/m PHYSICAL EXAM Constitutional: in no apparent distress, well developed and well nourished, in no respiratory distress and acyanotic, and cooperative SKIN : no rashes or significant lesions","right lesser toes - Improved - 2nd toe [...] miconazole powder BID Please follow up at [facility] after hospital discharge. I personally obtained [...] my own independent evaluation of this patient. [facility] - Infectious Diseases Attending Progress [...] CREATININE 0.97 02/19/20202057 GLUCOSE 252 (H) 06/21/2022 0513 CALCIUM 8.0 (L) 06/21/2022 0513 PROT 6.5 06/21/2022 0513 BILITOT 0.7 06/21/2022 0513 ALKPHOS 78 06/21/2022 0513 AST 56 (H) 06/21/2022 05 ALT 30 06/21/2022 0513 PROCAL 0.46 (H) 06/16/2022 0318 PROCAL 0.47 (H) 06/14/20226 PROCAL 0.06 06/10/2022 022 Lab Results Component Value Date/Time WBC 16.2 (H) 06/21/2022 05 HGB 12.4 (L) 06/21/2022 05 HCT 36.1 (L) 06/21/2022512 PLT 401 06/21/2022 05 LYMPHOPCT 20 06/21/2022 0513 LYMPHOPCT 17.9 (L) 06/20/2022 0616 MONOPCT 3 06/21/2022 0513 MONOPCT 6.1 06/20/2022 0616 BASOPCT 0.9 06/20/2022 0616 NEUTROABS 12.8 (H) 06/20/2022 0616 Micro: reviewed Lines: PIV Drain(arden) buckley Radiography/Echo/Other: [...] [facility]. H/o EtOH use. 2 No evidence of [...] opportunity to participate in this patient's care. [facility] - Surgery [facility] Physicians Surgery Patient Name: Moises Madrid Date: [...] (98 F) (Oral) Resp 20 Ht 6' 2" (1.88 m) Wt 248 lb 3.8 oz [...] dry, and intact Data: CBC: Recent Labs 06/19/2230006/20/2216 06/21/22 0513 WBC 19.0* 17.8* 16.2* HGB 13.0 13.2 12.4* HCT 38.2* 38.9* 36.1* PLT 325 389 401 BMP: Recent Labs 06/19/2230006/20/22 0616 06/21/22 0513 NA 126* 126* 126* [...] Adult diet Dysphagia - Pureed; Mildly Thick ([place]); Low Fat (less than or equal to [...] injury) LABS: CBC: Recent Labs 06/18/22 0317 03/1230006/20/22 0616 WBC 20.7* 19.0* 17.8* RBC 4.39* [...] (100.2 F) (Oral) Resp 23 Ht 6' 2" (1.88 m) Wt 250 lb 14.1 oz [...] Daily, SIMIN Frausto CNP, 5 mg at 06/20/22 08 aspirin chewable tablet 81 mg, 81 mg, [...] SIMIN Frausto CNP, 250 mg at 06/20/22 0828 enoxaparin (Lovenox) syringe 40 mg, 40 mg, [...] , Topical, PRN, Bertha Rodrigez APRN - [employer], Given at 06/18/222122 torsemide (Demadex) tablet 10 mg, 10 mg, Oral, BID, Mainor Kim MD, 10 mg at 06/20/22 0828 venlafaxine (Effexor) tablet 75 mg, 75 mg, Oral, BID, Ira Marin APRN - [employer], 75 mg at 06/20/22 0828 Assessment Data: [...] MD Division of Hospitalist Medicine Inpatient Medical Services/[facility] - Infectious Diseases Attending Progress Note [...] Resp cx: nl vikram, PNA PCR: Coronavirus 3/8 BC: neg Lines: Perc drain Radiography/Echo/Other: reviewed [...] [facility]. 2 No evidence of active infection [...] Lying Pulse: 104 100 100 103 Resp: Temp: 37.9 C (100.2 F) TempSrc: Oral [...] Units 06/20/22 0616 06/19/22 0301 06/18/22 0317 SODIUM mmol/L 126* 126* 129* POTASSIUM [...] any questions or concerns. Brenda Blanco APRN, [employer] [facility], [facility] [phone] office Seen and examined. Agree with above A and p. Need nausea control and more protein intake PO to address hyponatremia. Speech-Language Pathology Facility/Department: [facility] DYSPHAGIA TREATMENT NAME: Moises Madrid : [...] Adult diet Dysphagia - Pureed; Mildly Thick ([place]); Low Fat (less than or equal to 50 gm/day) Diet effective now Question Answer Comment Diet type Dysphagia - Pureed Fluid consistency Mildly Thick ([place]) GI restriction: Low Fat (less than or [...] (Dysphagia I) Liquid Consistency Recommendation: Mildly Thick ([place]) Recommended Form of Meds: Crushed in puree [...] and moist for advancement. 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 has a past medical history of Anxiety, Ataxia, Bipolar disorder (HCC), Chronic pain, Constipation, Contracture, right hand, Depression, Dysphagia, Dysphagia, Dysphonia, Edema, GERD (gastroesophageal reflux disease), Headache, Hemiplegia (CMS/HCC) ([facility]), Hyperlipidemia, Hypertension, Insomnia, Muscle weakness, Neuropathy, and [...] Minutes: 17 Minutes (1 Ther Act) GRANT Workman Physical Therapy Facility/Department: [facility] Physical Therapy Daily Treatment Note NAME: [...] of Hyperkalemia, EDWARDO (acute kidney injury) (CMS/HCC) ([facility]), Chest pain on breathing, Stable angina pectoris (CMS/HCC) (HCC), 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 has a past medical history of Anxiety, Ataxia, Bipolar disorder ([facility]), Chronic pain, Constipation, Contracture, right hand, Depression, Dysphagia, Dysphagia, Dysphonia, Edema, GERD (gastroesophageal reflux disease), Headache, Hemiplegia (CMS/HCC) ([facility]), Hyperlipidemia, Hypertension, Insomnia, Muscle weakness, Neuropathy, and [...] Minutes (1 ther act) Angle Ignacio PTA [facility] - Surgery [facility] Physicians Surgery Patient Name: Moises Madrid Date: [...] chart review was performed. Remigio Napier MD [facility] General Surgery 3:21 PM 06/20/2022 GENERAL SURGERY Progress Note PATIENT NAME: Moises Madrid TODAY'S DATE: 06/20/2022 SUBJECTIVE: Follow up on pancreatitis. Patient reports minimal abdominal pain. No N/V. No acute events overnight. Has been eating without issue. Pain controlled Yes Other Complaints No Flatus/BM/or Ostomy function {Yes OBJECTIVE: VITALS: BP 123/84 Pulse 103 Temp 37.9 C (100.2 F) (Oral) Resp 23 Ht 6' 2" (1.88 m) Wt 250 lb 14.1 oz [...] proceed with plan. Raimundo Riley APRN - [employer] Cardiology Progress Note Patient Name: Moises Madrid Patient Age: 61 y.o. Date: 06/20/2022 Alert, comfortable stable SUBJECTIVE: pt. In isolation Sob.c/o abd. Pain. No cp. PANCREATITIS. CHOLECYSTITIS. RENAL STONE, Stress . >> nl.. ef=65 % Leucocytosis.>>20. Blood eftdu=562 mg. Gi consult reviewed. More alert. No cp.pulse ox=96. VITALS BP 130/80 (BP Location: Left arm, Patient Position: Lying) Pulse 104 Temp 37.9 C (100.2 F) (Oral) Resp 21 Ht 6' 2" (1.88 m) Wt 250 lb 14.1 oz [...] : GIB No Renal : CKD No FIELD ARTILLERY FIRE CONTROL MAN : CVA/TIA No Musculoskeletal system : DJD [...] QT Interval 352 QTC Interval 479 P [place] 43 QRS [place] -36 T Wave [place] 60 NC Interval 160 Impression SINUS TACHYCARDIA LEFT AXIS [...] RENAL STONE, HYPONATREMIA, NA-=129. > RESTRICT FLUIDS. Fe=244. Cr0.88/22. na >>low= 126. PLAN : Chest pain>>>Stress test normal., ef=65 %NO CP TODAY, CP DUE TO PANCREATITIS. Noncardiac cp. CARDIAC STATUS IS STABLE. Essential hypertension, benign>>>Meds Hyperlipidemia>>Meds>>Meds Troponin=0.012. ekg no change, Dr. Dickerson and advise changing Zosyn to Ertapenem therapy on 06/14. However, patient vital signs change becoming more tachycardic, tachypneic and febrile cy=374.>>111. BP= 143/85 MMHG. Ef=65 %. Pt/ot. SHELTON HERMAN M.D., [facility] 06/20/2022 Images from the original note were not included. [facility] - Infectious Diseases Attending Progress [...] of pancreatitis in this ECF patient from [facility]. 2 No evidence of active infection [...] . >> nl.. ef=65 % Leucocytosis.>>20. Blood scppj=253 mg. Gi consult reviewed. Very lethargic & sleepy. No cp.pulse ox=96. VITALS BP (!) 143/85 (BP Location: Left arm, Patient Position: Lying) Pulse (!) 111 Temp 36.2 C (97.2 F) (Oral) Resp (!) 27 Ht 6' 2" (1.88 m) Wt 250 lb 14.1 oz [...] : GIB No Renal : CKD No FIELD ARTILLERY FIRE CONTROL MAN : CVA/TIA No Musculoskeletal system : DJD [...] QT Interval 352 QTC Interval 479 P [place] 43 QRS [place] -36 T Wave [place] 60 NC Interval 160 Impression SINUS TACHYCARDIA LEFT AXIS [...] RENAL STONE, HYPONATREMIA, NA-=129. > RESTRICT FLUIDS. Wa=694. Cr0.88/22. PLAN : Chest pain>>>Stress test normal., ef=65 %NO CP TODAY, CP DUE TO PANCREATITIS. Noncardiac cp. CARDIAC STATUS IS STABLE. Essential hypertension, benign>>>Meds Hyperlipidemia>>Meds>>Meds Troponin=0.012. ekg no change, Dr. Dickerson and advise changing Zosyn to Ertapenem therapy on 06/14. However, patient vital signs change becoming more tachycardic, tachypneic and febrile wg=917.>>111. BP= 143/85 MMHG. SHELTON HERMAN M.D., FACC 06/19/2022 .. [facility] Progress Note Subjective/ 61 y.o. year old male who we are seeing in consultation for Hyponatremia. NAAnnitaON Awakens to voice and able to follow [...] Results from last 7 days Lab Units 03/12/30006/18/2231606/17/228 SODIUM mmol/L 126* 129* 130* POTASSIUM mmol/L 3.9 3.8 3.7 CHLORIDE mmol/L 90* 93* 95* CO2 mmol/L 34* 35* 33* BUN mg/dL 24* 22* 19 CREATININE mg/dL 0.85 0.88 0.82 GLUCOSE mg/dL 250* 195* 181* CALCIUM mg/dL 7.9* 8.3* 8.0* Results from last 7 days Lab Units 06/19/2230006/18/2231606/17/228 WBC AUTO 10*3/uL 19.0* 20.7* 19.8* HEMOGLOBIN [...] were not included. Hospitalist Progress Note 06/19/2022 [phone]: Please page me ([phone]) for patient care issues. [phone]: Please page [facility] night Hospitalist for any issues. Subjective: Admit Date: 06/07/2022 PCP: Demetrius Fenton Room#: / A Interval History: No overnight events. Feels better this am. Ao x 3. Breathing non-labored and remains on 2 L NC. Denies chest pain, nausea, vomiting, abdominal pain, diarrhea or constipation. Adult diet Dysphagia - Pureed; Mildly Thick ([place]); Low Fat (less than or equal to 50 gm/day) @[id number]@ 24HR INTAKE/OUTPUT: Intake/Output Summary (Last 24 hours) [...] (98.1 F) (Oral) Resp 18 Ht 6' 2" (1.88 m) Wt 250 lb 14.1 oz [...] (last 21 days) XR chest 1 view [[id number]] Collected: 06/16/22427 Order Status: Completed Updated: 06/16/22516 Narrative: [facility] Name[facility] MOIS[facility]ADRID [facility] 1960 [id number] Exam Date/Time: 06/16/2022 05:16 Procedure: XR CHEST [...] 4:29 AM EST XR chest 1 view [[id number]] Collected: 06/15/221131 Order Status: Completed Updated: 06/15/221133 [...] Units Date/Time CT abdomen pelvis w contrast [[id number]] Collected: 06/13/222204 Order Status: Completed Updated: 06/13/222220 [...] Electronically Signed Date/Time: 06/13/2022 10:20 PM EST Fileboard abdomen limited [[id number]] Collected: 06/13/22823 Order Status: Completed Updated: 06/13/22829 [...] negative sonographic Cole's sign reported by the biochemistry technologist. Pancreas: Obscured by bowel gas. Right Kidney: [...] 8:29 AM EST XR chest 1 view [[id number]] Collected: 06/12/22 1254 Order Status: Completed Updated: [...] PM EST XR foot 3+ views right [[id number]] Collected: 06/12/22 1250 Order Status: Completed Updated: [...] EST CT guided abscess fluid collection drainage [[id number]] Collected: 06/10/22 1607 Order Status: Completed Updated: 06/10/22 1610 Narrative: Patient Name: MOISES MADRID : 1960 [facility]#: [id number] Exam Date/Time: 06/10/2022 14:50 Procedure: CT GUIDED ABSCESS FLUID COLLECTION DRAINAGE Ordering Provider: EDGAR JONATHAN Reason For Exam: PROCEDURE: Drainage catheter placement Procedural Personnel Attending physician(s): Jus Barlow Indication: Peripancreatic fluid collection Additional clinical history: None Complications: No immediate complications. Impression: Percutaneous placement of a 10 [place] drainage catheter into peripancreatic fluid collection, yielding [...] fluid collection - Drainage catheter placed: 10 [place] APD - External catheter securement: Non-absorbable suture [...] EST CT abdomen pelvis wo IV contrast [[id number]] Collected: 06/10/22914 Order Status: Completed Updated: 06/10/22930 Narrative: Patient Name: MOISES MADRID : 1960 [facility]#: [id number] Exam Date/Time: 06/10/2022 08:50 Procedure: CT ABDOMEN [...] 9:30 AM EST XR chest 1 view [[id number]] Collected: 06/10/22843 Order Status: Completed Updated: 06/10/22850 [...] 8:50 AM EST XR chest 1 view [[id number]] Collected: 06/07/222325 Order Status: Completed Updated: 06/07/222327 [...] disorder Medical Decision Making -Patient presents to [facility] ED from SNF on 06/08 with complaints [...] MD Division of Hospitalist Medicine Inpatient Medical Services/[facility] PAGER: Epic chat Images from the original note were not included. [facility] - Infectious Diseases Attending Progress Note [place]: 61 y/o s/p remote CVA and hemiplegia presented from [facility] on 06/07/22 with acute substernal CP and [...] -- -- -- -- 1.88 m (6' 2") 06/17/22 1215 117/86 36.8 C (98.2 F) [...] . >> nl.. ef=65 % Leucocytosis.>>20. Blood nztvx=299 mg. Gi consult reviewed. Very lethargic & sleepy. No cp.pulse ox=96. VITALS BP 126/83 (BP Location: Right arm) Pulse (!) 119 Temp 36.7 C (98 F) (Oral) Resp 24 Ht 6' 2" (1.88 m) Wt 250 lb 14.1 oz [...] : GIB No Renal : CKD No FIELD ARTILLERY FIRE CONTROL MAN : CVA/TIA No Musculoskeletal system : DJD [...] QT Interval 352 QTC Interval 479 P [place] 43 QRS [place] -36 T Wave [place] 60 NC Interval 160 Impression SINUS TACHYCARDIA LEFT AXIS [...] RENAL STONE, HYPONATREMIA, NA-=129. > RESTRICT FLUIDS. Iu=060. Cr0.88/22. PLAN : Chest pain>>>Stress test normal., ef=65 %NO CP TODAY, Noncardiac cp. CARDIAC STATUS IS STABLE. Essential hypertension, benign>>>Meds Hyperlipidemia>>Meds>>Meds Troponin=0.012. ekg no change, Dr. Dickerson and advise changing Zosyn to Ertapenem therapy on 06/14. However, patient vital signs change becoming more tachycardic, tachypneic and febrile dv=541. SHELTON HERMAN M.D., FACC 06/18/2022 Images from the original note were not included. Hospitalist Progress Note 06/18/2022 [phone]: Please page me ([phone]) for patient care issues. [phone]: Please page [facility] Hospitalist for any issues. Subjective: Admit Date: 06/07/2022 PCP: Demetrius Fenton Room#: 232-06/232-06 A Interval History: No overnight events. Patient AO x 3 this am. Feels much better. Tolerated breakfast. States that he feels improved. Remains tachycardic and on 4 L NC. Denies chest pain, nausea, vomiting, abdominal pain, diarrhea or constipation. Adult diet Dysphagia - Pureed; Mildly Thick ([place]); Low Fat (less than or equal to 50 gm/day) @[id number]@ 24HR INTAKE/OUTPUT: Intake/Output Summary (Last 24 hours) at 06/18/2022 0914 Last data filed at 06/18/2022 0620 Gross per 24 hour Intake 550 ml Output 2925 ml Net -2375 ml Past Medical History: Past Medical History: Diagnosis Date Anxiety Ataxia Bipolar disorder (HCC) Chronic pain Constipation Contracture, right hand Depression Dysphagia Dysphagia Dysphonia Edema GERD (gastroesophageal reflux disease) Headache Hemiplegia (CMS/HCC) ([facility]) Hyperlipidemia Hypertension Insomnia Muscle weakness Neuropathy TBI [...] (99.4 F) (Oral) Resp 17 Ht 6' 2" (1.88 m) Wt 250 lb 14.1 oz [...] (last 21 days) XR chest 1 view [[id number]] Collected: 06/16/22427 Order Status: Completed Updated: 06/16/22516 [...] 4:29 AM EST XR chest 1 view [[id number]] Collected: 06/15/22 113 Order Status: Completed Updated: 06/15/221133 Narrative: Patient [...] Units Date/Time CT abdomen pelvis w contrast [[id number]] Collected: 06/13/222204 Order Status: Completed Updated: 06/13/222220 [...] 06/13/2022 10:20 PM EST US abdomen limited [[id number]] Collected: 06/13/22823 Order Status: Completed Updated: 06/13/22829 [...] negative sonographic Cole's sign reported by the biochemistry technologist. Pancreas: Obscured by bowel gas. Right Kidney: [...] 8:29 AM EST XR chest 1 view [[id number]] Collected: 06/12/22 1254 Order Status: Completed Updated: 06/12/22 1257 Narrative: Patient Name: MOISES MADRID : 1960 [id number] Exam Date/Time: 06/12/2022 12:43 Procedure: XR CHEST [...] PM EST XR foot 3+ views right [[id number]] Collected: 06/12/22 1250 Order Status: Completed Updated: 03/05/23 1253 Narrative: Patient Name: MOISES MADRID : 1960 [...] EST CT guided abscess fluid collection drainage [[id number]] Collected: 06/10/22 1607 Order Status: Completed Updated: 06/10/22 1610 Narrative: Patient Name: MOISES MADRID : 1960 Exam Date/Time: 06/10/2022 14:50 Procedure: CT GUIDED ABSCESS FLUID COLLECTION DRAINAGE Ordering Provider: EDGAR JONATHAN Reason For Exam: PROCEDURE: Drainage catheter placement Procedural Personnel Attending physician(s): Jus Barlow Indication: Peripancreatic fluid collection Additional clinical history: None Complications: No immediate complications. Impression: Percutaneous placement of a 10 [place] drainage catheter into peripancreatic fluid collection, yielding [...] fluid collection - Drainage catheter placed: 10 [place] APD - External catheter securement: Non-absorbable suture [...] EST CT abdomen pelvis wo IV contrast [[id number]] Collected: 06/10/22914 Order Status: Completed Updated: 06/10/22930 Narrative: Patient Name: MOISES MADRID : 1960 [id number] Exam Date/Time: 06/10/2022 08:50 Procedure: CT ABDOMEN [...] 9:30 AM EST XR chest 1 view [[id number]] Collected: 06/10/22843 Order Status: Completed Updated: 06/10/22850 [...] 8:50 AM EST XR chest 1 view [[id number]] Collected: 06/07/222325 Order Status: Completed Updated: 06/07/222327 [...] disorder Medical Decision Making -Patient presents to [facility] ED from SNF on 06/08 with complaints [...] MD Division of Hospitalist Medicine Inpatient Medical Services/[facility] PAGER: [employer] chat .. [facility] Progress Note [...] Pulse: 110 (!) 115 110 107 Resp: Temp: 37.8 C (100.1 F) 36.8 C [...] from the original note were not included. [facility]ound [facility] Progress Note Moises Madrid [...] mouth Nightly. cholecalciferol (Vitamin D3) 1.25 MG (07856 UT) tablet Take by mouth 1 (one) [...] Do not crush, chew, or split. HYDROcodone-acetaminophen ([place]) 5-325 MG tablet Take 1 tablet by [...] Apply topically if needed for dry skin. [place]-3 Fatty Acids (Fish Oil) 1000 MG capsule [...] (98 F) (Oral) Resp 20 Ht 6' 2" (1.88 m) Wt 250 lb 14.1 oz (114 kg) SpO2 97% BMI 32.21 kg/m PHYSICAL EXAM Constitutional: in no apparent distress, well developed and well nourished, in no respiratory distress and acyanotic, and cooperative SKIN : no rashes or significant lesions","right lesser toes - Improved - 2nd toe [...] miconazole powder BID Please follow up at [facility] wound care [place] after hospital discharge. I personally obtained the [...] own independent evaluation of this patient. .. [facility] Subjective/ 61 y.o. 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 AO x 3 on exam. Feels slightly better but remains acutely ill. Adult diet Dysphagia - Pureed; Moderately Thick (Honey); Low Fat (less than or equal to 50 gm/day). per MD-1. SIRS 2. Acute pancreatitis with peripancreatic abscess s/p percutaneous drain (/) 3. Acute hypoxic respiratory insufficiency 2/2 coronavirus [...] On: Kcal/kg Weight Used for Energy Requirements: [place] Weight for Energy Calculation (kg): 86 kg Total Energy Requirements (kcals/day): 25--30 or 7022-0527 Weight Used for Protein Requirements: [place] Weight in Kg Used for Protein Requirements: 86 kg Estimated Total Protein (g/day): 1.0-1.2 or 86-103 Estimated Daily Total Fluid (ml/day): or per md Nutrition Related Findings: weak beehive kiln supervisor ,altered mental status,+2 bl;trace upper ,generalized edema-variable po, na 130, glu 181,lipase 1078,alb 3.1,nh3- 13-wounds improved, 3/6 bm Wound Type: Multiple, Deep Tissue Injury, Stage II, Moisture Associate Skin Damage (jennie 11-13 -dti buttock- r and left buttock, stage 2 toe,abd fold excoriation) Current Nutrition Therapies: Adult diet Dysphagia - Pureed; Mildly Thick ([place]); Low Fat (less than or equal to 50 gm/day) Current Oral Intake Average Meal Intake: 76-100%, 1-25% (variable po intakes) Average Supplements Intake: 26-50%, Unable to assess (not recorded) Anthropometric Measures: Height: 188 cm (6' 2") Current Body Weight: 114 kg (251 lb 5.2 oz) (06/17) Weight Source: Bed Scale Usual Body Weight: 112 kg (248 lb) (248-253 lbs) % Weight Change (Calculated): 2 [place] Body Weight (lbs) (Calculated): 190 lbs [place] Body Weight (Kg) (Calculated): 86 kg % [place] Body Weight (Calculated): 132.3 % BMI (kg/m2) (Calculated): 32.3 BMI Categories: Obese Class 1 (BMI 30.0-34.9) Nutrition Diagnosis: Inadequate protein-energy intake, Increased nutrient needs related to other (comment), acute injury/trauma, psychological cause or life stress (abscess with drain) as evidenced by wounds, reduced beehive kiln supervisor strength, poor intake prior to admission, intake [...] Oral Nutrition Supplement Eugenia Sauer RD Contact: *[phone] or [place] [employer] chat Occupational Therapy Facility/Department: [facility] Occupational Therapy Treatment NAME: Moises Madrid : [...] of Hyperkalemia, EDWARDO (acute kidney injury) (CMS/HCC) ([facility]), Chest pain on breathing, Stable angina pectoris (CMS/HCC) (HCC), 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 has [...] Pt did not know the year. States "Whatever you say" when told the year. General Comments Comments: Pt ok to see per RN Patient Observation Observations: Pt supine in the bed. Reports having a "stomach ache" and that he was trying to pass gas. Pt did not rate pain. At end of session pt sates "It's not bubbling anymore". Objective Feeding Assistance Level: Maximum assistance Skilled [...] mouth. Pt was suprised he had hair. "I thought I got it all shaved off". Bed mobility Scooting: Dependent/Total, 2 Person assistance [...] . >> nl.. ef=65 % Leucocytosis.>>20. Blood ptaif=054 mg. Gi consult reviewed. Very lethargic & sleepy. No cp.pulse ox=96. VITALS BP (!) 150/93 (BP Location: Right arm, Patient Position: Lying) Pulse 104 Temp 37.2 C (99 F) (Oral) Resp 20 Ht 6' 2" (1.88 m) Wt 250 lb 14.1 oz [...] : GIB No Renal : CKD No FIELD ARTILLERY FIRE CONTROL MAN : CVA/TIA No Musculoskeletal system : DJD [...] QT Interval 352 QTC Interval 479 P [place] 43 QRS [place] -36 T Wave [place] 60 NC Interval 160 Impression SINUS TACHYCARDIA LEFT AXIS [...] tachycardic, tachypneic and febrile SHELTON HERMAN M.D., [facility] 06/17/2022 [facility] - Surgery [facility] Physicians Surgery Patient Name: Moises Madrid Date: [...] chart review was performed. Remigio Napier MD [facility] General Surgery 12:57 PM 06/17/2022 GENERAL SURGERY [...] (99 F) (Oral) Resp 20 Ht 6' 2" (1.88 m) Wt 250 lb 14.1 oz [...] dry, and intact Data: CBC: Recent Labs 06/15/2240006/16/2231706/17/22437 WBC 19.0* 19.9* 19.8* HGB 12.2* 12.6* 12.6* HCT 37.1* 37.8* 37.7* PLT 186 229 264 BMP: Recent Labs 06/15/2240006/16/2231706/17/22437 NA 128* 132* 130* K 4.2 4.0 3.7 CL 95* 95* 95* CO2 33* 32* 33* BUN 10 16 19 CREATININE 0.81 0.80 0.82 GLUCOSE 175* 173* 181* Hepatic: Recent Labs 06/15/2240006/16/2231706/17/22437 AST 29 36 35 ALT 26 25 [...] proceed with plan. Raimundo Riley APRN - [employer] Images from the original note were not included. [facility] - Infectious Diseases Attending Progress Note [...] F) Oral 106 23 95 % -- 06/16/222101 -- -- -- 103 18 100 % [...] normal. Behavior: Behavior normal. Labs: Recent Labs 06/15/2240006/16/2231706/17/22437 NA 128* 132* 130* K 4.2 4.0 3.7 CL 95* 95* 95* CO2 33* 32* 33* BUN 10 16 19 CREATININE 0.81 0.80 0.82 GLUCOSE 175* 173* 181* CALCIUM 8.0* 8.1* 8.0* PROT 6.0* 6.2* 6.5 BILITOT 0.6 0.7 0.6 ALKPHOS 111 114 117 AST 29 36 35 ALT 26 25 23 PROCAL -- 0.46* -- Recent Labs 06/15/2240006/16/2231706/17/22437 WBC 19.0* 19.9* 19.8* HGB 12.2* 12.6* 12.6* HCT 37.1* 37.8* 37.7* PLT 186 229 264 LYMPHOPCT 6* 3* 5* MONOPCT 6 5 7 Procal 0.46 Crp 195.0 Lipase 1078 434 339 Micro: No results for input(s): COVID19 in the last 72 hours. 06/15/2022 2131 06/17/2022 0401 Blood culture #2 - Suspected Infection [[id number]] Blood, Venous Preliminary result Component Value Blood Culture No growth at 24 hours P 06/15/2022 2105 06/17/2022 0401 Blood culture #1 - Suspected Infection [[id number]] Blood, Venous Preliminary result Component Value Blood Culture No growth at 24 hours P 06/15/2022 1011 06/17/2022 0933 Respiratory culture [[id number]] (Abnormal) Sputum Final result Component Value Respiratory culture Few respiratory vikram present. Gram Stain Result Moderate Polymorphonuclear leukocytes per low power field Abnormal Moderate Epithelial cells per low power field Abnormal Rare Gram positive cocci Abnormal Rare Gram negative diplococci Abnormal 06/15/2022 1010 06/15/2022 2127 Pneumonia PCR Panel [[id number]] (Abnormal) Sputum Final result Component Value Staphylococcus [...] Not Detected Collected Updated Procedure Result Status 06/11/2022 1334 06/12/2022 0002 Pneumonia PCR Panel [[id number]] Sputum Final result Component Value Staphylococcus aureus [...] Detected 06/11/2022 1334 06/13/2022 0722 Respiratory culture [[id number]] Sputum Preliminary result Component Value Respiratory culture Rare respiratory vikram present. P Gram Stain Result Rare Epithelial cells per low power field P Moderate Polymorphonuclear leukocytes per low power field P No organisms seen P 06/10/2022 1433 06/13/2022 0924 Aerobic and Anaerobic Culture with Stain [[id number]] Abscess from Abdomen In process Component Value No component results 06/10/2022 1433 06/13/2022 0924 Culture, Aerobic Bacteria with Gram Stain [[id number]] Abscess from Abdomen Final result Component Value Culture No growth at 72 hours Gram Stain Result Rare Polymorphonuclear leukocytes per low power field No organisms seen Corrected result: Previously reported as Few Gram negative cocci (see Result History) on 06/11/2022 at 1209 EST 06/10/2022 1433 06/12/2022 1200 Anaerobic culture [[id number]] Abscess from Abdomen Preliminary result Component Value Culture No growth to date. Incubation continues P 06/10/2022 1243 06/10/2022 2302 Legionella and Streptococcus Urine Antigen [[id number]] Urine, Clean Catch Final result Component Value Legionella pneumophila Ag Not Detected Streptococcus pneumoniae Ag Not Detected 06/10/2022 1000 06/10/2022 1338 SARS-CoV-2 and Respiratory PCR Panel [[id number]] Swab from Nasopharynx Final result Component Value [...] 1401 Blood culture #1 - Suspected Infection [[id number]] Blood, Venous Preliminary result Component Value Blood Culture No growth at 72 hours P 06/10/2022 0958 06/13/2022 1401 Blood culture #2 - Suspected Infection [[id number]] Blood, Venous Preliminary result Component Value Blood Culture No growth at 72 hours P 06/07/2022 2345 06/08/2022 0035 SARS-CoV-2, Flu A/B, and RSV Combo [[id number]] Swab from Nasopharynx Final result Component Value SARS-CoV-2 Not Detected Respiratory Syncytial Virus Not Detected Influenza A Not Detected Influenza B Not Detected Lines: PIV site ok Radiography/Echo/Other: Reviewed CT abdomen pelvis w contrast [[id number]] Collected: 06/13/222204 Order Status: Completed Updated: 06/13/222220 [...] increased in the interval. Report Dictated on Workstation: AGA Electronically Signed By: Merrick Lopez Electronically Signed Date/Time: 06/13/2022 10:20 PM EST Procedure Component Value Units Date/Time US abdomen limited [[id number]] Collected: 06/13/2224 Order Status: Completed Updated: 06/13/22829 Narrative: Patient [...] negative sonographic Cole's sign reported by the biochemistry technologist. Pancreas: Obscured by bowel gas. Right Kidney: [...] 8:29 AM EST XR chest 1 view [[id number]] Collected: 06/12/22 1254 Order Status: Completed Updated: [...] PM EST XR foot 3+ views right [[id number]] Collected: 06/12/22 125 Order Status: Completed Updated: 06/12/221252 Narrative: Patient Name: MOISES MADRID : 1960 [id number] Exam Date/Time: 06/12/2022 12:44 Procedure: XR FOOT [...] EST CT guided abscess fluid collection drainage [[id number]] Collected: 06/10/22 1607 Order Status: Completed Updated: 06/10/221609 Narrative: Patient Name: MOISES MADRID : 1960 [id number] Exam Date/Time: 06/10/2022 14:50 Procedure: CT GUIDED ABSCESS FLUID COLLECTION DRAINAGE Ordering Provider: EDGAR JONATHAN Reason For Exam: PROCEDURE: Drainage catheter placement Procedural Personnel Attending physician(s): Jus Barlow Indication: Peripancreatic fluid collection Additional clinical history: None Complications: No immediate complications. Impression: Percutaneous placement of a 10 [place] drainage catheter into peripancreatic fluid collection, yielding [...] fluid collection - Drainage catheter placed: 10 [place] APD - External catheter securement: Non-absorbable suture [...] EST CT abdomen pelvis wo IV contrast [[id number]] Collected: 06/10/22914 Order Status: Completed Updated: 06/10/22930 Narrative: Patient Name: MOISES MADRID : 1960 [id number] Exam Date/Time: 06/10/2022 08:50 Procedure: CT ABDOMEN [...] 9:30 AM EST XR chest 1 view [[id number]] Collected: 06/10/22843 Order Status: Completed Updated: 06/10/22850 Narrative: Patient Name: MOISES MADRID : 1960 [id number] Exam Date/Time: 06/10/2022 08:36 Procedure: XR CHEST [...] 8:50 AM EST XR chest 1 view [[id number]] Collected: 06/07/222325 Order Status: Completed Updated: 06/07/222327 Narrative: Patient Name: MOISES MADRID : 1960 [facility]#: [id number] Exam Date/Time: 06/07/2022 23:25 Procedure: XR CHEST [...] EST Antimicrobials, Start/End Dates: Pip/tazo 06/10-7 Vanco 3/5 Ceftr 06/10 Azithro 06/10 Flor 06/15- Vanco [...] note were not included. Hospitalist Progress Note 06/17/[id number]: Please page me ([phone]) for patient care issues. [phone]: Please page [facility] Hospitalist for any issues. Subjective: Admit Date: 06/07/2022 PCP: Demetrius Fenton Room#: 232-06/232-06 A Interval History: More alert this am. AO x 3 on exam. Feels slightly better but remains acutely ill. Adult diet Dysphagia - Pureed; Moderately Thick (Honey); Low Fat (less than or equal to 50 gm/day) @[id number]@ 24HR INTAKE/OUTPUT: Intake/Output Summary (Last 24 hours) at 06/17/2022 0744 Last data filed at 06/17/2022 0545 Gross per 24 hour Intake 350 ml Output 3400 ml Net -3050 ml Past Medical History: Past Medical History: Diagnosis Date Anxiety Ataxia Bipolar disorder ([facility]) Chronic pain Constipation Contracture, right hand Depression Dysphagia Dysphagia Dysphonia Edema GERD (gastroesophageal reflux disease) Headache Hemiplegia (CMS/HCC) ([facility]) Hyperlipidemia Hypertension Insomnia Muscle weakness Neuropathy TBI (traumatic brain injury) LABS: CBC: Recent Labs 06/15/22 0401 06/16/228 06/17/22437 WBC 19.0* 19.9* 19.8* RBC 4.03* 4.11* 4.18* HGB 12.2* 12.6* 12.6* HCT 37.1* 37.8* 37.7* MCV 92.1 92.0 90.0 RDW 13.8 13.6 13.9 PLT 186 229 264 BMP: Recent Labs 06/15/22 0401 06/16/228 06/17/22437 NA 128* 132* 130* K 4.2 [...] (99 F) (Oral) Resp 20 Ht 6' 2" (1.88 m) Wt 250 lb 14.1 oz [...] (last 21 days) XR chest 1 view [[id number]] Collected: 06/16/22 0428 Order Status: Completed Updated: 06/16/22516 Narrative: Patient [...] 4:29 AM EST XR chest 1 view [[id number]] Collected: 06/15/22 113 Order Status: Completed Updated: 06/15/221133 Narrative: Patient [...] Units Date/Time CT abdomen pelvis w contrast [[id number]] Collected: 06/13/222204 Order Status: Completed Updated: 06/13/222220 Narrative: Patient Name: MOISES MADRID : 1960 [facility]#: [id number] Exam Date/Time: 06/13/2022 17:39 Procedure: CT ABDOMEN [...] 06/13/2022 10:20 PM EST US abdomen limited [[id number]] Collected: 06/13/22823 Order Status: Completed Updated: 06/13/22829 [...] negative sonographic Cole's sign reported by the biochemistry technologist. Pancreas: Obscured by bowel gas. Right Kidney: [...] 8:29 AM EST XR chest 1 view [[id number]] Collected: 06/12/22 1254 Order Status: Completed Updated: 06/12/22 1257 Narrative: [facility]ADRID [facility] 1960 [id number] Exam Date/Time: 06/12/2022 12:43 Procedure: XR CHEST [...] PM EST XR foot 3+ views right [[id number]] Collected: 06/12/22 1250 Order Status: Completed Updated: [...] EST CT guided abscess fluid collection drainage [[id number]] Collected: 06/10/22 160 Order Status: Completed Updated: 06/10/221609 Narrative: Patient Name: MOISES MADRID : 1960 Exam Date/Time: 06/10/2022 14:50 Procedure: CT GUIDED ABSCESS FLUID COLLECTION DRAINAGE Ordering Provider: EDGAR JONATHAN Reason For Exam: PROCEDURE: Drainage catheter placement Procedural Personnel Attending physician(s): Jus Barlow Indication: Peripancreatic fluid collection Additional clinical history: None Complications: No immediate complications. Impression: Percutaneous placement of a 10 [place] drainage catheter into peripancreatic fluid collection, yielding [...] fluid collection - Drainage catheter placed: 10 [place] APD - External catheter securement: Non-absorbable suture [...] EST CT abdomen pelvis wo IV contrast [[id number]] Collected: 06/10/22914 Order Status: Completed Updated: 06/10/22930 Narrative: Patient Name: MOISES MADRID : 1960 [id number] Exam Date/Time: 06/10/2022 08:50 Procedure: CT ABDOMEN [...] 9:30 AM EST XR chest 1 view [[id number]] Collected: 06/10/22843 Order Status: Completed Updated: 06/10/22850 Narrative: Patient Name: MOISES MADRID : 1960 [id number] Exam Date/Time: 06/10/2022 08:36 Procedure: XR CHEST [...] 8:50 AM EST XR chest 1 view [[id number]] Collected: 06/07/222325 Order Status: Completed Updated: 06/07/222327 [...] disorder Medical Decision Making -Patient presents to [facility] ED from SNF on 06/08 with complaints [...] MD Division of Hospitalist Medicine Inpatient Medical Services/[facility] PAGER: Epic chat Pharmacy Note Vancomycin Consult [place] Moises Madrid is a 61 y.o. year old male ordered vancomycin for sepsis; consult from Dr. Becky Dickerson to manage therapy. 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 Goal AUC is 400-600 mg/L.hr. Random level of 14.3 on 06/16/22 at 1510. AUC = 414. Will continue current dose. Thank you for the consult. Will continue to follow. Speech-Language Pathology Facility/Department: [facility] HICU DYSPHAGIA TREATMENT NAME: Moises Madrid [...] study Therapeutic Interventions: Therapeutic PO trials with FRUIT CHECKER, Patient/Family education Treatment/Goals Encounter Problems Encounter Problems [...] study for further assessment. Treatment Plan Requires FRUIT CHECKER Intervention: Yes Frequency/Duration: Frequency of Treatment: 3 days/wk for Duration of Treatment: 2 weeks Therapy Time FRUIT CHECKER Individual Minutes Time In: 1515 Time Out: 1530 Minutes: 15 Brandi Caldwell, ALISHA student 06/16/2022 3:41 PM Cardiology Progress Note Patient Name: Moises Madrid Patient Age: 61 y.o. Date: 06/16/2022 SUBJECTIVE: pt. In isolation Sob.c/o abd. Pain. No cp. PANCREATITIS. CHOLECYSTITIS. RENAL STONE, Stress . >> nl.. ef=65 % Leucocytosis.>>20. Blood maepx=738 mg. Gi consult reviewed. Very lethargic & sleepy. No cp. VITALS BP (!) 138/91 (BP Location: Right arm, Patient Position: Lying) Pulse (!) 112 Temp 37.8 C (100.1 F) (Axillary) Resp 23 Ht 6' 2" (1.88 m) Wt 253 lb (115 kg) [...] : GIB No Renal : CKD No FIELD ARTILLERY FIRE CONTROL MAN : CVA/TIA No Musculoskeletal system : DJD [...] QT Interval 352 QTC Interval 479 P [place] 43 QRS [place] -36 T Wave [place] 60 NC Interval 160 Impression SINUS TACHYCARDIA LEFT AXIS [...] tachycardic, tachypneic and febrile SHELTON HERMAN M.D., FACC 06/16/2022 [facility] - Surgery [facility] Physicians Surgery Patient Name: Moises Madrid Date: [...] performed. Remigio Napier MD FACS General Surgery 7:43 PM 06/16/2022 GENERAL SURGERY [...] (100.1 F) (Axillary) Resp 23 Ht 6' 2" (1.88 m) Wt 253 lb (115 kg) [...] dry, and intact Data: CBC: Recent Labs 06/14/2222506/15/22 0401 06/16/22 0318 WBC 18.7* 19.0* 19.9* HGB 12.2* 12.2* 12.6* HCT 36.3* 37.1* 37.8* PLT 166 186 229 BMP: Recent Labs 06/14/2222506/15/22 0401 06/16/22 0318 NA 127* 128* 132* K 4.2 4.2 4.0 CL 98 95* 95* CO2 32* 33* 32* BUN 8* 10 16 CREATININE 0.71 0.81 0.80 GLUCOSE 171* 175* 173* Hepatic: Recent Labs 06/14/2222508/23 0401 06/16/22 0318 AST 41 29 36 ALT 36 26 [...] proceed with plan. Raimundo Riley APRN - [employer] .. [facility] Progress Note Subjective/ [...] (!) 116 (!) 111 Resp: 19 19 25 19 Temp: 37.9 C (100.2 F) 37.9 [...] follow closely with you Zeynep Wyatt APRN, [employer] [facility], [facility] [phone] Patient seen and examined. Agree with above A and p. Hyponatremia starting to improve. Encourage magic cup/protein drinks. C/w FR. Will follow. Images from the original note were not included. Hospitalist Progress Note 06/16/2022 [phone]: Please page me ([phone]) for patient care issues. [phone]: Please page [facility] night Hospitalist for any issues. Subjective: Admit Date: 06/07/2022 PCP: Demetrius Fenton Room#: 232--06 A Interval History: Overnight, patient febrile. On evaluation this am, patient more lethargic and AO x 0. Not following commands. Vitals are more tachycardic and tachyphenic. Worse compared to yesterday. Adult diet Dysphagia - Pureed; Moderately Thick (Honey); Low Fat (less than or equal to 50 gm/day) @[id number]@ 24HR INTAKE/OUTPUT: Intake/Output Summary (Last 24 hours) [...] C (97.4 F) Resp 25 Ht 6' 2" (1.88 m) Wt 253 lb (115 kg) [...] (last 21 days) XR chest 1 view [[id number]] Collected: 06/16/22427 Order Status: Completed Updated: 06/16/22516 Narrative: Patient Name: MOISES MADRID DOB: 1960 Exam Date/Time: 06/16/2022 05:16 Procedure: XR [...] 4:29 AM EST XR chest 1 view [[id number]] Collected: 06/15/221131 Order Status: Completed Updated: 06/15/221133 [...] Units Date/Time CT abdomen pelvis w contrast [[id number]] Collected: 06/13/222204 Order Status: Completed Updated: 06/13/222220 [...] increased in the interval. Report Dictated on Workstation: AGA Electronically Signed By: Merrick Lopez Electronically Signed Date/Time: 06/13/2022 10:20 PM EST US abdomen limited [[id number]] Collected: 06/13/22 0824 Order Status: Completed Updated: 06/13/22829 Narrative: Patient [...] negative sonographic Cole's sign reported by the biochemistry technologist. Pancreas: Obscured by bowel gas. Right Kidney: [...] 8:29 AM EST XR chest 1 view [[id number]] Collected: 06/12/22 1254 Order Status: Completed Updated: [...] PM EST XR foot 3+ views right [[id number]] Collected: 06/12/22 125 Order Status: Completed Updated: 06/12/221252 Narrative: Patient Name: MOISES MADRID : 1960 [id number] Exam Date/Time: 06/12/2022 12:44 Procedure: XR FOOT [...] EST CT guided abscess fluid collection drainage [[id number]] Collected: 06/10/22 1607 Order Status: Completed Updated: 06/10/22 1610 Narrative: Patient Name: MOISES MADRID : 1960 [facility]#: [id number] Exam Date/Time: 06/10/2022 14:50 Procedure: CT GUIDED ABSCESS FLUID COLLECTION DRAINAGE Ordering Provider: EDGAR JONATHAN Reason For Exam: PROCEDURE: Drainage catheter placement Procedural Personnel Attending physician(s): Jus Barlow Indication: Peripancreatic fluid collection Additional clinical history: None Complications: No immediate complications. Impression: Percutaneous placement of a 10 [place] drainage catheter into peripancreatic fluid collection, yielding [...] fluid collection - Drainage catheter placed: 10 [place] APD - External catheter securement: Non-absorbable suture [...] EST CT abdomen pelvis wo IV contrast [[id number]] Collected: 06/10/22914 Order Status: Completed Updated: 06/10/22930 Narrative: Patient Name: MOISES MADRID : 1960 [id number] Exam Date/Time: 06/10/2022 08:50 Procedure: CT ABDOMEN [...] 9:30 AM EST XR chest 1 view [[id number]] Collected: 06/10/22843 Order Status: Completed Updated: 06/10/22850 Narrative: Patient Name: MOISES MADRID : 1960 [id number] Exam Date/Time: 06/10/2022 08:36 Procedure: XR CHEST [...] 8:50 AM EST XR chest 1 view [[id number]] Collected: 06/07/222325 Order Status: Completed Updated: 06/07/222327 Narrative: Patient Name: MOISES MADRID : 1960 [facility]#: [id number] Exam Date/Time: 06/07/2022 23:25 Procedure: XR CHEST [...] disorder Medical Decision Making -Patient presents to [facility] ED from SNF on 06/08 with complaints [...] and ICU consulted. Discussed the case with shovel loader operator Dr. Rachel and resident physician Dr. Donovan [...] MD Division of Hospitalist Medicine Inpatient Medical Services/[facility] PAGER: Epic chat Images from the original note were not included. [facility] - Infectious Diseases Attending Progress Note [...] normal. Behavior: Behavior normal. Labs: Recent Labs 06/13/2232806/14/2222506/15/22 0401 NA 129* 127* 128* K 4.0 4.2 4.2 CL 100 98 95* CO2 29 32* 33* BUN 8* 8* 10 CREATININE 0.76 0.71 0.81 GLUCOSE 189* 171* 175* CALCIUM 7.3* 7.9* 8.0* PROT 5.6* 5.9* 6.0* BILITOT 0.8 0.7 0.6 ALKPHOS 77 106 111 AST 35 41 29 ALT 26 36 26 PROCAL -- 0.47* -- Recent Labs 06/13/2232806/14/2222506/15/22 0401 WBC 14.4* 18.7* 19.0* HGB 11.9* 12.2* 12.2* HCT 35.5* 36.3* 37.1* PLT 135* 166 186 LYMPHOPCT 7.8* 10* 6* MONOPCT 9.8 3 6 BASOPCT 0.4 -- -- NEUTROABS 11.6* -- -- Procal 0.47 Crp 195.0 Lipase 434 339 Micro: No results for input(s): COVID19 in the last 72 hours. Collected Updated Procedure Result Status 06/11/2022 1334 06/12/2022 0002 Pneumonia PCR Panel [[id number]] Sputum Final result Component Value Staphylococcus aureus [...] Detected 06/11/2022 1334 06/13/2022 0722 Respiratory culture [[id number]] Sputum Preliminary result Component Value Respiratory culture Rare respiratory vikram present. P Gram Stain Result Rare Epithelial cells per low power field P Moderate Polymorphonuclear leukocytes per low power field P No organisms seen P 06/10/2022 1433 06/13/2022 0924 Aerobic and Anaerobic Culture with Stain [[id number]] Abscess from Abdomen In process Component Value No component results 06/10/2022 1433 06/13/2022 0924 Culture, Aerobic Bacteria with Gram Stain [[id number]] Abscess from Abdomen Final result Component Value Culture No growth at 72 hours Gram Stain Result Rare Polymorphonuclear leukocytes per low power field No organisms seen Corrected result: Previously reported as Few Gram negative cocci (see Result History) on 06/11/2022 at 1209 EST 06/10/2022 1433 06/12/2022 1200 Anaerobic culture [[id number]] Abscess from Abdomen Preliminary result Component Value Culture No growth to date. Incubation continues P 06/10/2022 1243 06/10/2022 2302 Legionella and Streptococcus Urine Antigen [[id number]] Urine, Clean Catch Final result Component Value Legionella pneumophila Ag Not Detected Streptococcus pneumoniae Ag Not Detected 06/10/2022 1000 06/10/2022 1338 SARS-CoV-2 and Respiratory PCR Panel [[id number]] Swab from Nasopharynx Final result Component Value [...] 1401 Blood culture #1 - Suspected Infection [[id number]] Blood, Venous Preliminary result Component Value Blood Culture No growth at 72 hours P 06/10/2022 0958 06/13/2022 1401 Blood culture #2 - Suspected Infection [[id number]] Blood, Venous Preliminary result Component Value Blood Culture No growth at 72 hours P 06/07/2022 2345 06/08/2022 0035 SARS-CoV-2, Flu A/B, and RSV Combo [[id number]] Swab from Nasopharynx Final result Component Value SARS-CoV-2 Not Detected Respiratory Syncytial Virus Not Detected Influenza A Not Detected Influenza B Not Detected Lines: PIV site ok Radiography/Echo/Other: Reviewed CT abdomen pelvis w contrast [[id number]] Collected: 06/13/222204 Order Status: Completed Updated: 06/13/222220 Narrative: Patient Name: MOISES MADRID : 1960 [id number] Exam Date/Time: 06/13/2022 17:39 Procedure: CT ABDOMEN [...] Component Value Units Date/Time US abdomen limited [[id number]] Collected: 06/13/22823 Order Status: Completed Updated: 06/13/22829 Narrative: Patient Name: MOISES MADRID : 1960 [id number] Exam Date/Time: 06/13/2022 07:20 Procedure: US ABDOMEN [...] negative sonographic Cole's sign reported by the biochemistry technologist. Pancreas: Obscured by bowel gas. Right Kidney: [...] 8:29 AM EST XR chest 1 view [[id number]] Collected: 06/12/22 1254 Order Status: Completed Updated: 06/12/22 1257 Narrative: Patient Name: MOISES MADRID : 1960 [id number] Exam Date/Time: 06/12/2022 12:43 Procedure: XR CHEST [...] PM EST XR foot 3+ views right [[id number]] Collected: 06/12/221249 Order Status: Completed Updated: 06/12/221252 [...] EST CT guided abscess fluid collection drainage [[id number]] Collected: 06/10/22 1607 Order Status: Completed Updated: 06/10/221609 Narrative: Patient Name: MOISES MADRID : 1960 Exam Date/Time: 06/10/2022 14:50 Procedure: CT GUIDED ABSCESS FLUID COLLECTION DRAINAGE Ordering Provider: EDGAR JONATHAN Reason For Exam: PROCEDURE: Drainage catheter placement Procedural Personnel Attending physician(s): Jus Barlow Indication: Peripancreatic fluid collection Additional clinical history: None Complications: No immediate complications. Impression: Percutaneous placement of a 10 [place] drainage catheter into peripancreatic fluid collection, yielding [...] fluid collection - Drainage catheter placed: 10 [place] APD - External catheter securement: Non-absorbable suture [...] EST CT abdomen pelvis wo IV contrast [[id number]] Collected: 06/10/22914 Order Status: Completed Updated: 06/10/22930 [...] 9:30 AM EST XR chest 1 view [[id number]] Collected: 06/10/22843 Order Status: Completed Updated: 06/10/22850 [...] 8:50 AM EST XR chest 1 view [[id number]] Collected: 06/07/222325 Order Status: Completed Updated: 06/07/222327 [...] accounting for open encounter. Speech-Language Pathology Facility/Department: [facility] HICU DYSPHAGIA TREATMENT NAME: Moises Madrid : 1960 ADMISSION DATE: 06/07/2022 ADMITTING DIAGNOSIS: has Chest pain; Chest pain, unspecified type; Obesity, Class I, BMI 30-34.9; Hyperlipidemia; Essential hypertension, benign; Depression; Hemiplegia (CMS/HCC) ([facility]); and Idiopathic chronic venous hypertension of right lower extremity with ulcer ([facility]) on their problem list. Allergies Allergen Reactions [...] Pt indicated that he is doing better. "I was up (x2)" demonstrated on his fingers. O: Oral motor [...] appropriate with this diet. Treatment Plan Requires FRUIT CHECKER Intervention: Yes Frequency/Duration: Frequency of Treatment: 3 days/wk for Duration of Treatment: 2 weeks Therapy Time FRUIT CHECKER Individual Minutes Time In: 1442 Time Out: 1513 Minutes: 31 ALISHA Canchola 06/15/2022 3:32 PM Physical Therapy Facility/Department: [facility] Physical Therapy Daily Treatment Note NAME: [...] right foot with fat layer 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) were also pertinent to this visit. 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 has a past medical history of Anxiety, Ataxia, Bipolar disorder ([facility]), Chronic pain, Constipation, Contracture, right hand, Depression, Dysphagia, Dysphagia, Dysphonia, Edema, GERD (gastroesophageal reflux disease), Headache, Hemiplegia (CMS/HCC) ([facility]), Hyperlipidemia, Hypertension, Insomnia, Muscle weakness, Neuropathy, and [...] 24 Minutes (FA x2) Deja Saeed OT [facility] - Surgery [facility] Physicians Surgery Patient Name: Moises Madrid Date: [...] chart review was performed. Remigio Napier MD [facility] General Surgery 2:30 PM 06/15/2022 GENERAL SURGERY [...] (98.2 F) (Oral) Resp 17 Ht 6' 2" (1.88 m) Wt 253 lb (115 kg) [...] and intact Data: CBC: Recent Labs 06/13/2232806/14/2222506/15/22 0401 WBC 14.4* 18.7* 19.0* HGB 11.9* 12.2* 12.2* HCT 35.5* 36.3* 37.1* PLT 135* 166 186 BMP: Recent Labs 06/13/2232806/14/2222506/15/22 0401 NA 129* 127* 128* K 4.0 [...] [facility] Progress Note Patient Name: Moises Madrdi Patient Age: 61 y.o. Date: 06/15/2022 SUBJECTIVE: pt. In isolation Sob.c/o abd. Pain. No cp. PANCREATITIS. CHOLECYSTITIS. RENAL STONE, Stress . >> nl.. ef=65 % Leucocytosis.>>20. Blood yikrs=419 mg. Gi consult reviewed. No cp. VITALS BP (!) 166/95 (BP Location: Left arm, Patient Position: Lying) Pulse 109 Temp 36.8 C (98.2 F) (Oral) Resp 17 Ht 6' 2" (1.88 m) Wt 253 lb (115 kg) [...] : GIB No Renal : CKD No FIELD ARTILLERY FIRE CONTROL MAN : CVA/TIA No Musculoskeletal system : DJD [...] QT Interval 352 QTC Interval 479 P [place] 43 QRS [place] -36 T Wave [place] 60 NC Interval 160 Impression SINUS TACHYCARDIA LEFT AXIS [...] note were not included. Hospitalist Progress Note 06/15/[id number]: Please page me ([phone]) for patient care issues. [phone]: Please page [facility] night Hospitalist for any issues. Subjective: Admit [...] (less than or equal to 50 gm/day) @[id number]@ 24HR INTAKE/OUTPUT: Intake/Output Summary (Last 24 hours) at 06/15/2022 0725 Last data filed at 06/15/2022 0700 Gross per 24 hour Intake -- Output 2180 ml Net -2180 ml Past Medical History: Past Medical History: Diagnosis Date Anxiety Ataxia Bipolar disorder ([facility]) Chronic pain Constipation Contracture, right hand Depression Dysphagia Dysphagia Dysphonia Edema GERD (gastroesophageal reflux disease) Headache Hemiplegia (CMS/HCC) ([facility]) Hyperlipidemia Hypertension Insomnia Muscle weakness Neuropathy TBI (traumatic brain injury) LABS: CBC: Recent Labs 06/13/22 03206/14/226 06/15/22 0401 WBC 14.4* 18.7* 19.0* RBC 3.86* 3.98* 4.03* HGB 11.9* 12.2* 12.2* HCT 35.5* 36.3* 37.1* MCV 92.0 91.1 92.1 RDW 13.3 13.6 13.8 PLT 135* 166 186 BMP: Recent Labs 06/13/22 03206/14/226 06/15/22 0401 NA 129* 127* 128* K [...] (98.2 F) (Oral) Resp 17 Ht 6' 2" (1.88 m) Wt 253 lb (115 kg) [...] Units Date/Time CT abdomen pelvis w contrast [[id number]] Collected: 06/13/222204 Order Status: Completed Updated: 06/13/222220 [...] 06/13/2022 10:20 PM EST US abdomen limited [[id number]] Collected: 06/13/22823 Order Status: Completed Updated: 06/13/22829 [...] negative sonographic Cole's sign reported by the biochemistry technologist. Pancreas: Obscured by bowel gas. Right Kidney: [...] 8:29 AM EST XR chest 1 view [[id number]] Collected: 06/12/22 1254 Order Status: Completed Updated: 06/12/22 1257 Narrative: Patient Name: MOISES MADRID : 1960 [id number] Exam Date/Time: 06/12/2022 12:43 Procedure: XR CHEST [...] PM EST XR foot 3+ views right [[id number]] Collected: 06/12/22 1250 Order Status: Completed Updated: 06/12/22 1253 Narrative: Patient Name: MOISES MADRID : 1960 Exam Date/Time: 06/12/2022 12:44 Procedure: XR FOOT 3+ VIEWS RIGHT Ordering Provider: EDAGR JONATHAN Reason For Exam: r/o OM RIGHT [...] EST CT guided abscess fluid collection drainage [[id number]] Collected: 06/10/22 160 Order Status: Completed Updated: 06/10/22 161 Narrative: Patient Name: MOISES MADRID : 1960 Exam Date/Time: 06/10/2022 14:50 Procedure: CT GUIDED ABSCESS FLUID COLLECTION DRAINAGE Ordering Provider: EDGAR JONATHAN Reason For Exam: PROCEDURE: Drainage catheter placement Procedural Personnel Attending physician(s): Jus Barlow Indication: Peripancreatic fluid collection Additional clinical history: None Complications: No immediate complications. Impression: Percutaneous placement of a 10 [place] drainage catheter into peripancreatic fluid collection, yielding [...] fluid collection - Drainage catheter placed: 10 [place] APD - External catheter securement: Non-absorbable suture [...] EST CT abdomen pelvis wo IV contrast [[id number]] Collected: 06/10/22914 Order Status: Completed Updated: 06/10/22930 Narrative: Patient Name: MOISES MADRID : 1960 [id number] Exam Date/Time: 06/10/2022 08:50 Procedure: CT ABDOMEN [...] 9:30 AM EST XR chest 1 view [[id number]] Collected: 06/10/22 0844 Order Status: Completed Updated: 06/10/22850 Narrative: Patient [...] 8:50 AM EST XR chest 1 view [[id number]] Collected: 06/07/222325 Order Status: Completed Updated: 06/07/222327 [...] drain (06/10) Acute hypoxic respiratory insufficiency 2/2 questionable CAP EDWARDO Chest pain, ACS ruled out Right foot wounds - no active infection Hyperkalemia-resolved HTN HLD Hx of TBI, stroke and residual hemiplegia Chronic headaches Mood disorder Medical Decision Making -Patient presents to [facility] ED from SNF on 06/08 with complaints [...] MD Division of Hospitalist Medicine Inpatient Medical Services/[facility] PAGER: Epic chat Speech-Language Pathology Facility/Department: [place] [address] DYSPHAGIA TREATMENT NAME: Moises Madrid : 1960 [...] P: continue dysphagia POC. Treatment Plan Requires FRUIT CHECKER Intervention: Yes Frequency/Duration: Frequency of Treatment: 3 days/wk for Duration of Treatment: 2 weeks Therapy Time FRUIT CHECKER Individual Minutes Time In: 1435 Time Out: 1457 Minutes: 22 ALISHA Canchola 06/14/2022 3:41 PM Images from the original note were not included. [facility] - Infectious Diseases Attending Progress [...] normal. Behavior: Behavior normal. Labs: Recent Labs 06/12/22 0358 06/13/2232806/14/22225 NA 129* 129* 127* K 4.1 4.0 4.2 CL 104 100 98 CO2 27 29 32* BUN 11 8* 8* CREATININE 0.84 0.76 0.71 GLUCOSE 140* 189* 171* CALCIUM 7.0* 7.3* 7.9* PROT 5.2* 5.6* 5.9* BILITOT 1.1 0.8 0.7 ALKPHOS 67 77 106 AST 29 35 41 ALT 17 26 36 PROCAL -- -- 0.47* Recent Labs 06/12/22 0358 06/13/2232806/14/22225 WBC 11.9* [...] 06/11/2022 1334 06/12/2022 0002 Pneumonia PCR Panel [[id number]] Sputum Final result Component Value Staphylococcus aureus [...] Detected 06/11/2022 1334 06/13/2022 0722 Respiratory culture [[id number]] Sputum Preliminary result Component Value Respiratory culture Rare respiratory vikram present. P Gram Stain Result Rare Epithelial cells per low power field P Moderate Polymorphonuclear leukocytes per low power field P No organisms seen P 06/10/2022 1433 06/13/2022 0924 Aerobic and Anaerobic Culture with Stain [[id number]] Abscess from Abdomen In process Component Value No component results 06/10/2022 1433 06/13/2022 0924 Culture, Aerobic Bacteria with Gram Stain [[id number]] Abscess from Abdomen Final result Component Value Culture No growth at 72 hours Gram Stain Result Rare Polymorphonuclear leukocytes per low power field No organisms seen Corrected result: Previously reported as Few Gram negative cocci (see Result History) on 06/11/2022 at 1209 EST 06/10/2022 1433 06/12/2022 1200 Anaerobic culture [[id number]] Abscess from Abdomen Preliminary result Component Value Culture No growth to date. Incubation continues P 06/10/2022 1243 06/10/2022 2302 Legionella and Streptococcus Urine Antigen [[id number]] Urine, Clean Catch Final result Component Value Legionella pneumophila Ag Not Detected Streptococcus pneumoniae Ag Not Detected 06/10/2022 1000 06/10/2022 1338 SARS-CoV-2 and Respiratory PCR Panel [[id number]] Swab from Nasopharynx Final result Component Value [...] 1401 Blood culture #1 - Suspected Infection [[id number]] Blood, Venous Preliminary result Component Value Blood Culture No growth at 72 hours P 06/10/2022 0958 06/13/2022 1401 Blood culture #2 - Suspected Infection [[id number]] Blood, Venous Preliminary result Component Value Blood Culture No growth at 72 hours P 06/07/2022 2345 06/08/2022 0035 SARS-CoV-2, Flu A/B, and RSV Combo [[id number]] Swab from Nasopharynx Final result Component Value SARS-CoV-2 Not Detected Respiratory Syncytial Virus Not Detected Influenza A Not Detected Influenza B Not Detected Lines: PIV site ok Radiography/Echo/Other: Reviewed CT abdomen pelvis w contrast [[id number]] Collected: 06/13/222204 Order Status: Completed Updated: 06/13/222220 Narrative: [facility] Name[facility] MOIS[facility]ADRID [facility] 1960 [id number] Exam Date/Time: 06/13/2022 17:39 Procedure: CT ABDOMEN [...] Component Value Units Date/Time US abdomen limited [[id number]] Collected: 06/13/22823 Order Status: Completed Updated: 06/13/22829 [...] negative sonographic Cole's sign reported by the biochemistry technologist. Pancreas: Obscured by bowel gas. Right Kidney: [...] 8:29 AM EST XR chest 1 view [[id number]] Collected: 06/12/22 1254 Order Status: Completed Updated: 06/12/22 1257 Narrative: Patient Name: MOISES MADRID : 1960 [id number] Exam Date/Time: 06/12/2022 12:43 Procedure: XR CHEST [...] PM EST XR foot 3+ views right [[id number]] Collected: 06/12/22 125 Order Status: Completed Updated: [...] EST CT guided abscess fluid collection drainage [[id number]] Collected: 06/10/22 1607 Order Status: Completed Updated: 06/10/22 161 Narrative: Patient Name: MOISES MADRID : 1960 Exam Date/Time: 06/10/2022 14:50 Procedure: CT GUIDED ABSCESS FLUID COLLECTION DRAINAGE Ordering Provider: EDGAR JONATHAN Reason For Exam: PROCEDURE: Drainage catheter placement Procedural Personnel Attending physician(s): Jus Barlow Indication: Peripancreatic fluid collection Additional clinical history: None Complications: No immediate complications. Impression: Percutaneous placement of a 10 [place] drainage catheter into peripancreatic fluid collection, yielding [...] fluid collection - Drainage catheter placed: 10 [place] APD - External catheter securement: Non-absorbable suture [...] EST CT abdomen pelvis wo IV contrast [[id number]] Collected: 06/10/22914 Order Status: Completed Updated: 06/10/22930 [...] 9:30 AM EST XR chest 1 view [[id number]] Collected: 06/10/22843 Order Status: Completed Updated: 06/10/22850 [...] 8:50 AM EST XR chest 1 view [[id number]] Collected: 06/07/222325 Order Status: Completed Updated: 06/07/222327 [...] (97.9 F) (Oral) Resp 12 Ht 6' 2" (1.88 m) Wt 253 lb (115 kg) [...] the patient. CBC: Recent Labs 06/12/22 0358 06/13/22 0329 06/14/22 0226 WBC 11.9* 14.4* 18.7* HGB 11.8* 11.9* 12.2* HCT 35.4* 35.5* 36.3* PLT 121* 135* 166 HEPATIC: Recent Labs 06/13/22 0329 06/14/22 0226 AST 35 41 ALT 26 36 BILITOT 0.8 0.7 ALKPHOS 77 106 LIPASE/AMYLASE: Recent Labs 06/12/22 0358 06/14/22 022 LIPASE 339* 434* LACTATE: No lab exists [...] from the original note were not included. [facility] Wound Care Progress Note Moises Madrid [...] mouth Nightly. cholecalciferol (Vitamin D3) 1.25 MG (54919 UT) tablet Take by mouth 1 (one) [...] Do not crush, chew, or split. HYDROcodone-acetaminophen (Griswold) 5-325 MG tablet Take 1 tablet by [...] Apply topically if needed for dry skin. [place]esse[place]-3 Fatty Acids (Fish Oil) 1000 MG capsule [...] (97.9 F) (Oral) Resp 12 Ht 6' 2" (1.88 m) Wt 253 lb (115 kg) SpO2 94% BMI 32.48 kg/m PHYSICAL EXAM Constitutional: in no apparent distress, well developed and well nourished, in no respiratory distress and acyanotic, and cooperative SKIN : no rashes or significant lesions","right lesser toes - Improved - 2nd toe [...] toes - cleanse with antibacterial soap/water, leave EXTRUSION MANAGER PVR ordered-completed - see 06/11/22 Vascular study results Venous insufficiency Elevate legs as much as possible Right posterior thigh Moisture associated skin damage from friction and other body fluids. - ET mix , xeroform and ABD pad. BID . Left post thigh and perineum - ET mix BID . Intertrigo, abdominal fold - miconazole powder BID Please follow up at [facility] wound care [place] after hospital discharge. Thank you for the [...] my own independent evaluation of this patient. [facility] - Surgery [facility] Physicians Surgery Patient Name: Moises Madrid Date: [...] performed. Remigio Napier MD FACS General Surgery 2:38 PM 06/14/2022 GENERAL SURGERY Progress Note PATIENT NAME: Moises Madrid TODAY'S DATE: 06/14/2022 SUBJECTIVE: Patient seen this [...] (98 F) (Oral) Resp 16 Ht 6' 2" (1.88 m) Wt 253 lb (115 kg) [...] dry, and intact Data: CBC: Recent Labs 06/12/22 0358 06/13/22 03206/14/22225 WBC 11.9* 14.4* 18.7* HGB 11.8* 11.9* 12.2* HCT 35.4* 35.5* 36.3* PLT 121* 135* 166 BMP: Recent Labs 06/12/22 0358 06/13/22 0329 06/14/22225 NA 129* 129* 127* K 4.1 4.0 4.2 CL 104 100 98 CO2 27 29 32* BUN 11 8* 8* CREATININE 0.84 0.76 0.71 GLUCOSE 140* 189* 171* Hepatic: Recent Labs 06/12/22 0358 06/13/22 0329 06/14/22 0226 AST 29 35 41 ALT [...] were not included. Hospitalist Progress Note 06/14/2022 [phone]: Please page me ([phone]) for patient care issues. [phone]: Please page [facility] Hospitalist for any issues. Subjective: Admit [...] (less than or equal to 50 gm/day) @[id number]@ 24HR INTAKE/OUTPUT: Intake/Output Summary (Last 24 hours) [...] (98 F) (Oral) Resp 16 Ht 6' 2" (1.88 m) Wt 253 lb (115 kg) [...] Units Date/Time CT abdomen pelvis w contrast [[id number]] Collected: 06/13/222204 Order Status: Completed Updated: 06/13/222220 [...] Date/Time: 06/13/2022 10:20 PM EST abdomen limited [[id number]] Collected: 06/13/22 0824 Order Status: Completed Updated: 06/13/22 0830 Narrative: [...] negative sonographic Cole's sign reported by the biochemistry technologist. Pancreas: Obscured by bowel gas. Right Kidney: [...] 8:29 AM EST XR chest 1 view [[id number]] Collected: 06/12/22 1254 Order Status: Completed Updated: [...] PM EST XR foot 3+ views right [[id number]] Collected: 06/12/22 1250 Order Status: Completed Updated: 06/12/221252 Narrative: Patient Name: MOISES MADRID : 1960 [id number] Exam Date/Time: 06/12/2022 12:44 Procedure: XR FOOT [...] EST CT guided abscess fluid collection drainage [[id number]] Collected: 06/10/22 160 Order Status: Completed Updated: 06/10/221609 Narrative: Patient Name: MOISES MADRID : 1960 [id number] Exam Date/Time: 06/10/2022 14:50 Procedure: CT GUIDED ABSCESS FLUID COLLECTION DRAINAGE Ordering Provider: EDGAR JONATHAN Reason For Exam: PROCEDURE: Drainage catheter placement Procedural Personnel Attending physician(s): Jus Barlow Indication: Peripancreatic fluid collection Additional clinical history: None Complications: No immediate complications. Impression: Percutaneous placement of a 10 [place] drainage catheter into peripancreatic fluid collection, yielding [...] fluid collection - Drainage catheter placed: 10 [place] APD - External catheter securement: Non-absorbable suture [...] EST CT abdomen pelvis wo IV contrast [[id number]] Collected: 06/10/22914 Order Status: Completed Updated: 06/10/22930 Narrative: Patient Name: MOISES MADRID : 1960 [id number] Exam Date/Time: 06/10/2022 08:50 Procedure: CT ABDOMEN [...] [facility] Miscellaneous Notes S/W, follow up Patient discharged back to [facility] Orders sent via Careport to facility. Transport set via [facility] at 5p obstetrics gyn provided report number. Patient aware of transport today. Chart reviewed. Patient remains in HICU for treatment of SIRS and acute pancreatitis with abscess s/p percutaneous drain. ID signed off. Drained removed 06/21. Surgery signed off. FRUIT CHECKER following for dysphagia. 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 SW following. Anticipate discharge today. Images from the original note were not included. Care Management Progress Note - Discharge Expected Date/Time: 06/21/[address] discharge order Complete med reconciliation Request transport Case mgmt discharge readiness FRUIT CHECKER discharge readiness Expected Discharge History Expected Date/Time [...] but is improving. Discharge plan return to [facility] when medically stable. Images from the original [...] Brenda Hagan 06/08/2022 1:55 AM 06/09/2022 Jennie Catselan PA-C 06/08/2022 1:19 AM Length of Stay [...] remain stagnant-Strict I&O. Pt can return to [facility] at discharge. He does not need insurance auth. He will need COVID screen & completed & signed EARNEST. S/W, follow up Updates sent to [facility]. Patient able to return anytime. S/W to follow for DC. Images from the original note were not included. Care Management Progress Note - Discharge Expected Date/Time: 06/21/[address] discharge order Complete med reconciliation Request transport Case mgmt discharge readiness FRUIT CHECKER discharge readiness Expected Discharge History Expected Date/Time [...] prior to discharge. T can return to [facility] at discharge. He does not need insurance auth. He will need COVID screen & completed & signed EARNEST. S/W, follow up Updates sent via Careport to [facility]. 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 Discussed with nursing machining supervisor, bedside nurse and ICU team. Asia Nelson MD Division of Hospitalist Medicine Acute care [facility] 10:24 AM 06/16/22 S/W, follow up Updates sent via Careport to [facility]. Facility may be able to re-skill the patient. S/W to follow for DC. Length of Stay: 7 Anticipated date of discharge: 06/16/2022 Medical Plan of Care: ID-Follow inflammatory markers after 48h on 06/16. Substitute ertapenem for pip/tazo for 5 days. Check valproic acid level.General surgery & GI following. Continue drain mgmt- may be able to remove in coming day. DC Disposition: [facility]-ferry terminal agent Discharge Barriers: Medical stability. Surgery is recommending to continue drain . Per CT of abdomen 06/13 near complete resolution of focal fluid noted. GI has signed off. Remains on IV antibiotics. Sodium down 127. WBC 18.7 today. Discharge plan remains to return to [facility] when medically stable. 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 Patient today with increased abdominal pain, possible drain for peripancreatic fluid, likely infected. S/W to follow. 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 I am clarifying if they need insurance approval or not. Patient with Stress Test today. S/W to follow. Discharge plan is return to [facility] when medically stable. Cardiology consult pending. Vascular us of lower extremities pending. Echo completed but no report in computer at this time. marquetry worker following for return to facility. S/W, follow up Patient in from [facility]. Referral placed in Careport inquiring on needs [...] include Q2 turns. documented in this encounter [facility] 06-23-2022 Hospital course Narrative Discharge Summary Moises [...] of chest pain. Patient resides in a care home . Patient presents to the Ed due [...] and management during his stay here at [facility]: # SIRS # Acute pancreatitis with peripancreatic [...] and now on RA. # Dysphagia - FRUIT CHECKER following. Recommended Minced and Moist (Dysphagia II), Liquid Consistency Mildly Thick ([place]) # Coronavirus positive - per ID, No [...] 81 MG EC tablet cholecalciferol 1.25 MG (73734 UT) tablet Commonly known as: Vitamin D3 [...] HYDROcodone-acetaminophen 5-325 MG tablet Commonly known as: Griswold ketoconazole 2 % cream Commonly known as: [...] Dysphagia - Minced and Moist; Mildly Thick ([place]) ACTIVITY: Up with assist COMPLEXITY OF FOLLOW UP: [] Moderate Complexity: follow up within 7-14 calendar days (22865) [] Severe Complexity: follow up within 7 calendar days (31679) FOLLOW UP TESTING, PENDING RESULTS OR REFERRALS [...] 06/23/2022, 2:03 PM documented in this encounter [facility] 06-17-2022 Procedure note Images from the original note were not included. SPEECH LANGUAGE PATHOLOGY MODIFIED BARIUM SWALLOW STUDY Patient Name: Moises Madrid : 1960 Today's Date: 06/17/2022 Visit Info / [facility] ADMISSION DATE: 06/07/2022 ADMITTING DIAGNOSIS: has Chest pain; Chest pain, unspecified type; Obesity, Class I, BMI 30-34.9; Hyperlipidemia; Essential hypertension, benign; Depression; Hemiplegia (CMS/HCC) ([facility]); and Idiopathic chronic venous hypertension of right lower extremity with ulcer ([facility]) on their problem list. General Information Ordering [...] Bite-Sized (Dysphagia III), Dysphagia Pureed (Dysphagia I), [place] cup, [place] teaspoon, Honey cup, Honey teaspoon, Thin cup, [...] GERD (gastroesophageal reflux disease) Headache Hemiplegia (CMS/HCC) ([facility]) Hyperlipidemia Hypertension Insomnia Muscle weakness Neuropathy TBI [...] appropriate. Plan & Recommendations Recommendations/Treatment: Recommendations/Treat Requires FRUIT CHECKER Intervention: Yes Recommendations: Judd Water Protocol Recommendations comment: Free water with small amount of ice chips. MAKE SURE FOR SWALLOW AFTER EVERY BITE D/C Recommendations: Ongoing speech therapy is recommended during this hospitalization Solid consistency: Dysphagia Pureed (Dysphagia I) Liquid consistency: Mildly Thick ([place]) Liquid administration via: Cup Medication administration: Meds in puree Supervision: Close Compensatory Swallowing Strategies : Assist feed, Small bites/sips, Upright as possible for all oral intake, Remain upright for 30-45 minutes after meals, Alternate solids and liquids (WATCH CLOSE for swallows) Postural Changes and/or Swallow Maneuvers: Upright 90 degrees, Upright 30 min after meal Therapeutic Interventions: Therapeutic PO trials with FRUIT CHECKER, Patient/Family education, Diet tolerance monitoring, Judd Water [...] Start: 06/11/22 Expected End: 06/25/22 Therapy Time FRUIT CHECKER Individual Minutes Time In: 1442 Time Out: 1513 Minutes: 31 ALISHA Canchola documented in this encounter [facility] 06-17-2022 Consult note Formatting of th is [...] as needed for mild pain (1-3). Historical ProviderMD albuterol (2.5 MG/3ML) 0.083% nebulizer solution Take by nebulization every 3-4 hours as needed for wheezing. Historical Provider, ARIPiprazole (Abilify) 5 MG tablet Take 5 mg by mouth daily. Historical Provider, aspirin 81 MG EC tablet Take 81 mg by mouth daily. Historical Provider, atorvastatin (Lipitor) 40 MG tablet Take 40 mg by mouth Nightly. Historical Provider, cholecalciferol (Vitamin D3) 1.25 MG (39232 UT) tablet Take by mouth 1 (one) [...] 100 mg by mouth daily. Historical Provider, famotidine (Pepcid) 20 MG tablet Take 20 [...] crush, chew, or split. Historical ProviderMD HYDROcodone-acetaminophen (Griswold) 5-325 MG tablet Take 1 tablet by [...] if needed for dry skin. Historical ProviderMD Bessemer-3 Fatty Acids (Fish Oil) 1000 MG capsule [...] (100.1 F) (Axillary) Resp 23 Ht 6' 2" (1.88 m) Wt 253 lb (115 kg) [...] Normal [] Scar/Lesion/Mass Inspection of teeth/lips/gums Dentition: [][place] Teeth []Dentures Lips/Gums: []Intact []Lesion Present Mucosa: [][place] []Moist []Dry Neck: External Appearance Overall Appearance: [...] RDW 13.6 13.8 13.6 ABGs: Recent Labs 06/16/22 0941 PHART 7.452* AQT0TBY 42.3 PO2ART 67.7* HUL3QOZ 29.5* SO2ART 94.0* Lactic Acid: No results [...] management if needed. Jhon Bethea MD residential monitor, PGY-III Pager: [phone] 06/16/2022 at 10:44 AM Associated attestation - [...] C (99 F) Resp 23 Ht 6' 2" (1.88 m) Wt 253 lb (115 kg) [...] Narrative Patient Name: MOISES MADRID : 1960 [id number] Exam Date/Time: 06/16/2022 05:16 Procedure: XR CHEST [...] MIN Associated Order(s): IP CONSULT TO NEPHROLOGY [facility] Consult Note Reason for [...] complaint listed above. Patient resides in a care home. Patient presents to the Ed due to [...] mouth Nightly. cholecalciferol (Vitamin D3) 1.25 MG (59070 UT) tablet Take by mouth 1 (one) [...] Do not crush, chew, or split. HYDROcodone-acetaminophen (Griswold) 5-325 MG tablet Take 1 tablet by [...] Apply topically if needed for dry skin. [place]-3 Fatty Acids (Fish Oil) 1000 MG capsule [...] of affect Data: LIVER PROFILE: Recent Labs 06/13/2232806/14/2222506/15/22 040 AST 35 41 29 ALT 26 36 [...] to call with any questions or concerns. rBenda Blanco APRN, [employer] [facility] [employer], [email or web address] [phone] office Seen and examined. Agree with above [...] Practitioner Consult Note Available for page via [employer] Monday, Monday, Monday [phone] Outside of these hours, please contact Dr. Nj (M-F 0-9) or psychiatry on-call. Moises Madrid is a [...] social work if necessary. Reason for consult: "suicidal ideation? Patient reported telling nurses he wanted to " HPI: Mr. Madrid is a 61M with PMH anxiety, bipolar disorder, chronic pain, GERD, chronic headaches, HLD, HTN, insomnia, neuropathy, TBI who presented initially for chest pain. Patient now medically admitted for ACS, pancreatitis, uncomplicated sepsis. Patient resting in bed, alert, appropriately dressed in hospital attire. Introduced self and explained role. Patient states he feels "lousy". He notably needs to take a breath in between each word. Reports feeling very SOB and experiencing "really bad" abdominal pain. He admits to feeling that he doesn't want to live anymore. "The pain, too much, I can't go on". He denies having a plan. He is notably very weak and hardly moves during discussion. He states he has been feeling this way "since I came here". Reports living at the [facility] in [place] and states he likes it there. Has a friend [place] there that he wants to talk to "but I can't talk" on the phone (soft spoken, sob). Asked if he knows his mental health diagnosis, he states, "I'm crazy". Asked if he finds his medications helpful, he states "I don't know". He is unable to provide year or current president. Asked why we wear masks, "so you don't get sick" but doesn't identify COVID. He does not seem confused but rather very apathetic. He admits to persistent depressed mood, anhedonia, "lousy" appetite, "bad" sleep, fatigue, poor concentration, feelings of worthlessness and hopelessness. He also endorses persistent worry about his current situation and whether or not he will improve and go home. He denies feelings of panic, trauma avoidance, obsessions, compulsions, paranoia, hallucinations. Asked about history of manic behaviors but he states "I don't know". Asked if spiritual consult would be beneficial, he again states "I don't know". Verbal encouragement and support provided during discussion [...] bipolar 1, insomnia, anxiety, TBI. Records from [place] note diagnosis of bipolar disorder, severe, current episode depressed with psychotic features and mixed expressive-receptive language disorder Psychiatrist: through [facility] @ [place] Counselor: lisaies Preparer Samples And Repairs: "I don't know" Hospitalizations: multiple in past, patient guesses "four or five", unable to define when his last hospitalization [...] mouth Nightly. cholecalciferol (Vitamin D3) 1.25 MG (14435 UT) tablet Take by mouth 1 (one) [...] Do not crush, chew, or split. HYDROcodone-acetaminophen (Griswold) 5-325 MG tablet Take 1 tablet by [...] Apply topically if needed for dry skin. [place]-3 Fatty Acids (Fish Oil) 1000 MG capsule [...] Social History: Patient reports growing up in [place] with both parents and two brothers. He denies abuse/violence in the home as a child. Denies abuse/violence as an adult. Patient completed trade school and worked with "[employer]" as an adult. He has never been , has no children. Reports he has 1 brother that occasionally checks in with him but the other is estranged, voices no other support. Currently living in [facility] [facility], has been there for several years and likes it there. Denies service, denies legal history. Denies affiliation with yazidism but does endorse a belief in God. [...] the Last Year: No Family History: States "I don't know" when asked about psychiatric family history. Does [...] Tangential [] Loose associations [] Circumstantial [] [place] [] Perseverative [] Poverty of Thought [] [...] hypertension of right lower extremity with ulcer ([facility]) ASSESSMENT Major Depression vs Bipolar with current [...] in hospital. Will hold off on constant chief controller at this time. Should patient verbalize a plan or worsening SI, recommend adding suicide precautions and constant chief controller. Patient's passive suicidal thoughts appear directly related [...] from the original note were not included. [facility] - Infectious Diseases Attending Consult Note Reason for Consult: Pancreatic fluid collection/abscess History of Present Illness: Patient is 61 year old admitted to [facility] with shortness of breath and chest discomfort that has been going on for quite awhile. Complains of cough and sputum, also "quite awhile" and abdominal pain, non-radiating that has been "quite a while." He denies urine changes, but has chronic [...] mg 10 mg Rectal Daily PRN Mani Edgar, DO dextrose 5 % infusion 100 mL/hr [...] mg 0.5 mg IntraVENous q4h PRN Mani Edgar DO 0.5 mg at 06/12/22 0606 influenza [...] miconazole (Micotin) 2 % powder Topical BID SIMIN Maddox CNP Given at 06/11/22 215 nitroglycerin (Nitrostat) SL tablet 0.4 mg 0.4 [...] mL IVPB 4,500 mg IntraVENous q6h Mani Edgar, DO 200 mL/hr at 06/12/22 0606 4,500 mg at 06/12/22 0606 polyethylene glycol (PEG) 3350 (Miralax) packet 17 g 17 g Oral Daily PRN Brenda Hagan 17 g at 06/11/22 1517 senna-docusate sodium (Senokot-S) 8.6-50 MG tablet 2 tablet 2 tablet Oral Daily Mani Edgar, DO 2 tablet at 06/11/22 0815 stomahesive in petrolatum (ET Mix) Topical PRN SIMIN Maddox CNP Given at 06/11/22 1546 Allergies: Allergies Allergen [...] normal. Behavior: Behavior normal. Labs: Recent Labs 06/10/2222806/11/2210 06/12/22 0358 NA 133* 133* 129* K 4.3 4.3 4.1 CL 105 104 104 CO2 22 29 27 BUN 19 16 11 CREATININE 0.87 0.97 0.84 GLUCOSE 233* 145* 140* CALCIUM 7.4* 7.0* 7.0* PROT 6.3 5.7* 5.2* BILITOT 1.1 1.2 1.1 ALKPHOS 83 69 67 AST 63* 30 29 ALT 18 15 17 PROCAL 0.06 -- -- Recent Labs 06/10/2222806/11/22 0510 06/12/22 0358 WBC 20.2* 17.3* 11.9* HGB 15.4 13.8 [...] of chest pain. Patient lives in a care home secondary to traumatic brain injury and history [...] Historical Provider, cholecalciferol (Vitamin D3) 1.25 MG (23499 UT) tablet Take by mouth 1 (one) [...] crush, chew, or split. Historical ProviderMD HYDROcodone-acetaminophen (Griswold) 5-325 MG tablet Take 1 tablet by [...] topically if needed for dry skin. Historical Provider, Bessemer-3 Fatty Acids (Fish Oil) 1000 MG capsule [...] by mouth 2 times daily. Historical Provider, @MEDCMED@ ALLERGIES: Allergies Allergen Reactions Hydralazine Unknown [...] (98.6 F) (Oral) Resp 22 Ht 6' 2" (1.88 m) Wt 253 lb (115 kg) [...] the patient. CBC: Recent Labs 06/09/22 0344 06/10/2222806/11/22 0510 WBC 13.0* 20.2* 17.3* HGB 14.1 15.4 13.8 HCT 41.9 44.7 41.0 PLT 123* 121* 132* HEPATIC: Recent Labs 06/10/2222806/11/22 0510 AST 63* 30 ALT 18 15 [...] Drainage catheter placement Procedural Personnel Attending physician(s): uJs Barlow Indication: Peripancreatic fluid collection Additional clinical history: None Complications: No immediate complications. Impression: Percutaneous placement of a 10 [place] drainage catheter into peripancreatic fluid collection, yielding [...] fluid collection - Drainage catheter placed: 10 [place] APD - External catheter securement: Non-absorbable suture [...] Narrative: Patient Name: MOISES MADRID : 1960 [id number] Exam Date/Time: 06/10/2022 08:50 Procedure: CT ABDOMEN [...] Electronically Signed Date/Time: 06/10/2022 8:50 AM EST @RISRSLT@ IMPRESSION / RECOMMENDATIONS: Hypertension Hyperlipidemia EDWARDO: resolved [...] Associated Order(s): IP CONSULT TO GENERAL SURGERY [facility] - Surgery [facility] Physicians Surgery Patient Name: Moises Madrid Date: [...] chart review was performed. Remigio Napier MD [facility] General Surgery 10:00 PM 06/10/2022 Department of [...] HTN, HLD, bipolar, and was currently at [facility]. He initially presented with substernal chest pain [...] 3-4 hours as needed for wheezing. Historical ProviderMD ARIPiprazole (Abilify) 5 MG tablet Take 5 mg by mouth daily. Historical ProviderMD aspirin 81 MG EC tablet Take 81 mg by mouth daily. Historical ProviderMD atorvastatin (Lipitor) 40 MG tablet Take 40 mg by mouth Nightly. Historical ProviderMD cholecalciferol (Vitamin D3) 1.25 MG (03013 UT) tablet Take by mouth 1 (one) [...] crush, chew, or split. Historical ProviderMD HYDROcodone-acetaminophen (Griswold) 5-325 MG tablet Take 1 tablet by [...] if needed for dry skin. Historical ProviderMD Bessemer-3 Fatty Acids (Fish Oil) 1000 MG capsule [...] by mouth 2 times daily. Historical ProviderMD Allergies: Hydralazine, Sulfamethoxazole-trimethoprim, Temazepam, Tramadol, and Clindamycin [...] (Oral) Resp 23 Ht 1.88 m (6' 2") Wt 115 kg (253 lb) SpO2 93% [...] and intact DATA: CBC: Recent Labs 06/08/22 0408 06/09/22 0344 06/10/22 0229 WBC 9.2 13.0* 20.2* HGB 13.2 14.1 15.4 HCT 38.5* 41.9 44.7 PLT 140 123* 121* BMP: Recent Labs 06/08/22 0408 03/06/02 34306/10/22228 NA 135 133* 133* K 5.2* 4.8 4.3 CL 107 107 105 CO2 25 23 22 BUN 35* 25* 19 CREATININE 1.21 1.02 0.87 GLUCOSE 126* 186* 233* Hepatic: Recent Labs 06/10/22228 AST 63* ALT 18 BILITOT 1.1 ALKPHOS 83 Mag: Recent Labs 06/08/22 0408 06/09/2234306/10/22228 MG 2.1 1.8 2.2 Phos: No results [...] detected. Report Dictated on Electronically Signed By: Chekoneisha Chapa Electronically Signed Date/Time: 06/07/2022 11:27 PM [...] from the original note were not included. [facility]ound Care CONSULT Note Moises Madrid [...] mouth Nightly. cholecalciferol (Vitamin D3) 1.25 MG (92564 UT) tablet Take by mouth 1 (one) [...] Do not crush, chew, or split. HYDROcodone-acetaminophen (Griswold) 5-325 MG tablet Take 1 tablet by [...] Apply topically if needed for dry skin. Bessemer-3 Fatty Acids (Fish Oil) 1000 MG capsule [...] (98.2 F) (Oral) Resp 13 Ht 6' 2" (1.88 m) Wt 253 lb (115 kg) SpO2 94% BMI 32.48 kg/m PHYSICAL EXAM {in no apparent distress, well developed and well nourished, in no respiratory distress and acyanotic, and cooperative: SKIN ::"no rashes or significant lesions","right lesser toes - 2nd toe (2cm x1cm [...] miconazole powder BID Please follow up at [facility] wound care [place] after hospital discharge. Thank you for the [...] is a 61 yo male admitted to [facility] after presenting to ED with Chest pain. [...] Historical ProviderMD cholecalciferol (Vitamin D3) 1.25 MG (51656 UT) tablet Take by mouth 1 (one) [...] crush, chew, or split. Historical ProviderMD HYDROcodone-acetaminophen (Griswold) 5-325 MG tablet Take 1 tablet by [...] if needed for dry skin. Historical ProviderMD Bessemer-3 Fatty Acids (Fish Oil) 1000 MG capsule [...] (97.5 F) (Oral) Resp 18 Ht 6' 2" (1.88 m) Wt 253 lb 4.9 oz [...] 06/08/2022 CREATININE 1.21 06/08/2022 BNP: Recent Labs 06/07/22 2312 BNP 49 PT/INR: No results for input(s): PROTIME, INR in the last 72 hours. APTT:No results for input(s): APTT in the last 72 hours. CARDIAC ENZYMES: Recent Labs 06/07/22 2312 06/08/22 0408 06/08/22 0858 TROPONINI <0.012 <0.012 <0.012 FASTING LIPID PANEL: Lab Results Component Value Date HDL 37 (L) 06/07/2022 LDLCALC 70 06/07/2022 TRIG 240 (H) 06/07/2022 LIVER PROFILE:No results for input(s): AST, ALT in the last 72 hours. No lab exists for component: LABALBU Lab Results Component Value Date TSH 3.216 06/07/2022 ABGs: No results found for: PHART, PO2ART, JCI9PPO INR: No results for input(s): INR in the last 72 hours. PRO-BNP: Recent Labs 06/07/22 2312 BNP 49 TSH: Lab Results Component Value [...] Hyperlipidemia Essential hypertension, benign Depression Hemiplegia (CMS/HCC) ([facility]) PLAN: Aggressive secondary risk factor management. Treat [...] care of this patient. SIGNATURE: Matteo Rios MD,FACC,FASNC,CCDS;FHRS PATIENT NAME: Moises Madrid DATE: 06/08/2022 PAGER: [phone] documented in this encounter [facility] 06-16-2022 Nurse Note Patient found to be very lethargic this AM. Needed repeated stimulation for responses. Alert to self and place. Temp 100.1F axillary. Tachycardic and Tachypnea. Work of breathing increased, abdominal breathing. Unable to take PO medications. Lungs coarse, unable to clear secretions. IMS Dr. Nelson messaged. Dr. Nelson came to [...] assisted to CT table and place supine. residential monitor on. 10 Fr drain inserted. Bandaid applied to site. Patient tolerated procedure well. Report called and patient transferred to HICU 6, report called back to RN. At 0802 Johnny Costa notified of increased abd pain, abd distended, tender to palpation all quads. Hypoactive BS. No Wtt1stop. Also increased need of 02, on RA pt 89% on 4l 94%. Labs, cxr and CT of ABD/pelvis. Attempted buckley x 2 16fr unsuccessful followed by 14fr coude, unsuccessful documented in this encounter [facility] 06-08-2022 Hospital Discharge instructions Becky Upton RN [...] Unit/Room#: 232-06/232-06 A Discharging Unit Phone Number: [phone] Emergency Contact: Extended Emergency Contact Information Primary Emergency Contact: Joslyn Hollins [place] Relation: Other Past Surgical History: Past Surgical [...] (Oral) Resp 18 Ht 1.88 m (6' 2") Wt 115 kg (253 lb 4.9 oz) [...] assistance Toileting Total assistance Feeding Minimal assistance Cookie Breaker Minimal assistance Med Delivery yes Wound Care Documentation and Therapy: Wound/Incision 06/08/22 Pressure Injury Toe (Comment which one) Anterior;Right (Active) Wound Image 06/08/22 0359 Site Assessment Painful;[place];Sloughing 06/08/22 0426 Drainage Amount Scant 06/08/22 0426 Treatments Other (Comment) 06/08/22 042 Primary Dressing Open to air 06/08/22 0426 Number of days: 0 Wound/Incision 06/08/22 Other (comment) Abdominal fold Circumferential (Active) Site Assessment Blanchable erythema 06/08/22 0426 Odor None 06/08/22 042 Drainage Amount None 06/08/22 042 Treatments Moisture barrier ointment 06/08/22 042 Primary Dressing Open to air 06/08/22 042 Number of days: 0 Wound/Incision 06/08/22 Pressure Injury Buttock Right;Posterior;Lower (Active) Wound Image 06/08/22 0425 Site Assessment Sloughing 06/08/22425 Primary Dressing Open to air 06/08/22 042 Number of days: 0 Wound/Incision 06/08/22 Pressure Injury Buttock Left;Lower;Posterior (Active) Wound Image 06/08/22 0424 Site Assessment Intact 06/08/226 Drainage Amount None 06/08/22425 Primary Dressing Open to air 06/08/22 042 Number of days: 0 Wound/Incision 06/08/22 Pressure Injury Perineum Medial (Active) Wound Image 06/08/22 0426 Site Assessment Blanchable erythema 06/08/22425 Drainage Amount None 06/08/22425 Primary Dressing Open to air 06/08/22 0426 Number of days: 0 Elimination: Continence: Bowel: [...] Details Model IP RISK OF UNPLANNED READMISSION [[id number]] is not released. No score information can be retrieved Discharging to Facility/ Agency Name: [facility] Address: [address] [place] [address] Fax: Dialysis Facility (if applicable) Name: Address: Dialysis Schedule: Phone: Fax: Pairer/Physician/Ophthalmologist signature: ICIAN SECTION Prognosis: poor Condition at Discharge: stable Rehab Potential (if transferring to Rehab): poor Recommended Labs or Other Treatments After Discharge: Physician Certification: I certify the above information and transfer of Moises Madrid is necessary for the continuing treatment of the diagnosis listed and that he requires [facility] facility for greater than 30 days. Update Admission H&P: No change in H&P PHYSICIAN SIGNATURE: documented in this encounter [facility] 06-08-2022 History and physical note Images from [...] complaint listed above. Patient resides in a care home . Patient presents to the Ed due [...] History: Diagnosis Date Anxiety Ataxia Bipolar disorder ([facility]) Chronic pain Constipation Contracture, right hand Depression Dysphagia Dysphagia Dysphonia Edema GERD (gastroesophageal reflux disease) Headache Hemiplegia ([facility]) Hyperlipidemia Hypertension Insomnia Muscle weakness Neuropathy TBI (traumatic brain injury) ([facility]) Past Surgical History: Past Surgical History: Procedure [...] (98.4 F) (Oral) Resp 16 Ht 6' 1" (1.854 m) Wt 251 lb (114 kg) [...] Hollins Relation: Other Brenda Hagan Division of Hospitalist Medicine Inpatient Medical Services/[facility] documented in this encounter [facility] 06-07-2022 Emergency department Note Pt states no relief after 1 nitroglycerin. However, due to pt pressure, unable to continue to administer. Dr. Smallwood notified, new orders placed. Karen Patel RN 06/07/22 8465 Emergency Department Encounter [facility] ED Patient: Moises Madrid : 1960 Date [...] afternoon. No relief despite dispensed PPI at care home. Given 481 mg aspirins by EMS with improvement of chest pain from 7 out of 10 to 5 out of 10. Denies shortness of breath, nausea, lightheadedness. Denies lower extremity swelling or calf pain. Focused exam: BP 94/56 (BP Location: Right arm, Patient Position: Sitting) Pulse 82 Temp 36.9 C (98.4 F) (Oral) Resp 16 Ht 1.854 m (6' 1") Wt 114 kg (251 lb) SpO2 97% BMI 33.12 kg/m Constitutional: Alert, awake Lungs: CTABL, no wheezing, no rales Heart: RRR , no murmurs, equal distal pulses to extremities, no peripheral edema/erythema/warmth of LEs b/l. Vascular: radial 2/4 equal B/L, dp 2/4 equal B/L Brief ED course/MDM: 61-year-old male presenting from care home for constant central nonradiating chest pain since [...] 0.5 inch (0.5 inches TransDERmal Given 06/07/22 0630) sodium chloride 0.9 % bolus 1,000 mL [...] 50 mEq (50 mEq IntraVENous Given 06/08/22 002) All diagnostic, treatment, and disposition decisions were [...] for clarification.) Tresa Smallwood DO [employer] Tresa Smallwood DO 06/07/22 6934 Tresa Smallwood DO 06/08/22 0049 EMERGENCY DEPARTMENT [...] History: Diagnosis Date Anxiety Ataxia Bipolar disorder ([facility]/HCC) Chronic pain Constipation Contracture, right hand Depression Dysphagia Dysphagia Dysphonia Edema GERD (gastroesophageal reflux disease) Headache Hemiplegia (CMS/HCC) Hyperlipidemia Hypertension Insomnia Muscle weakness Neuropathy TBI (traumatic brain injury) ([facility]) SURGICAL HISTORY Past Surgical History: Procedure Laterality Date CRANIOTOMY CURRENT MEDICATIONS Previous Medications No medications on file ALLERGIES Patient has no allergy information on record. FAMILY HISTORY No family history on file. SOCIAL HISTORY Social History Socioeconomic History Marital status: Single Tobacco Use Smoking status: Unknown Smokeless tobacco: Never Substance and Sexual Activity Alcohol use: Never Drug use: Never SCREENINGS Fanny Coma Scale Best Eye Response: Spontaneous Best [...] In compliance with this authorization, please visit www.fda.gov/media/902354/download or www.fda.gov/media/469948/download to access the applicable information sheets. TROPONIN [...] inch (0.5 inches TransDERmal Given 06/07/22 2340) glucose oral gel 15 g (has no administration in time range) dextrose 50 % solution 12.5 g (has no administration in time range) glucagon (human recombinant) injection 1 mg (has no administration in time range) dextrose 5 % infusion (has no administration in time range) nitroglycerin (Nitrostat) SL tablet 0.4 mg (0.4 mg SubLINGual Given 06/07/22 2332) sodium chloride 0.9 % bolus 1,000 mL (1,000 mL IntraVENous New Bag 06/08/22 0000) insulin regular (HumuLIN R,NovoLIN R) injection 5 Units (5 Units IntraVENous Given 06/08/22 0000) And dextrose 50 % solution 25 g (25 g IntraVENous Given 06/08/22 0029) sodium bicarbonate 8.4 % injection 50 mEq (50 mEq IntraVENous Given 06/08/22 002) In brief, Moises Madrid ayad 61 y.o. [...] 2. Hyperkalemia 3. EDWARDO (acute kidney injury) ([facility]) ([facility]) DISPOSITION Observation 06/08/2022 01:18:58 AM PATIENT REFERRED [...] PA-C 06/08/22 0127 documented in this encounter [facility] Evaluation note Diagnosis Cellulitis of right lower extremity- Primary Cellulitis and abscess of leg, except foot Elevated lactic acid level Other nonspecific abnormal serum enzyme levels documented in this encounter [facility] Work Phone: Evaluation noteNo assessment information available [facility] Work Phone: Evaluation note* Diagnosis Calculus of gallbladder without cholecystitis without obstruction- Primary Peripancreatic abscess Acute pancreatitis History of traumatic brain injury Personal history of traumatic brain injury Epigastric pain Abdominal pain, epigastric documented in this encounter [facility]* Diagnosis Calculus of gallbladder without cholecystitis without obstruction- Primary Peripancreatic abscess Acute pancreatitis History of traumatic brain injury Personal history of traumatic brain injury Epigastric pain Abdominal pain, epigastric documented in this encounter [facility]* Diagnosis Calculus of gallbladder without cholecystitis without obstruction- Primary Peripancreatic abscess Acute pancreatitis History of traumatic brain injury Personal history of traumatic brain injury Epigastric pain Abdominal pain, epigastric Calculus of gallbladder without cholecystitis without obstruction Acute pancreatitis without necrosis or infection, unspecified Epigastric pain Abdominal pain, epigastric [facility]* Diagnosis Peripheral vascular disease, unspecified (HCC)- Primary Peripheral vascular disease, unspecified Venous insufficiency (chronic) (peripheral) Unspecified venous (peripheral) insufficiency 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) Calculus of gallbladder without cholecystitis without obstruction Acute pancreatitis without necrosis or infection, unspecified Epigastric pain Abdominal pain, epigastric documented [facility]* Diagnosis Preop testing- Primary Unspecified pre-operative examination Calculus of gallbladder without cholecystitis without obstruction Acute pancreatitis without necrosis or infection, unspecified Epigastric pain Abdominal pain, epigastric documented [facility]* Diagnosis Calculus of gallbladder without cholecystitis without obstruction Peripancreatic abscess Acute pancreatitis Calculus of gallbladder without cholecystitis without obstruction Acute pancreatitis without necrosis or infection, unspecified Epigastric pain Abdominal pain, epigastric documented in this encounter [facility] note* Diagnosis Encounter for postoperative care- Primary [facility] Diagnosis Passive suicidal ideations- Primary [facility] Diagnosis Chronic daily headache- Primary Headache Intractable chronic migraine without aura and with status migrainosus Chronic migraine without aura, with intractable migraine, so stated, with status migrainosus Traumatic brain injury with loss of consciousness, sequela (HCC) Insomnia, unspecified type [facility]* Diagnosis Cellulitis of right lower extremity- Primary Right lower quadrant abdominal pain Constipation, unspecified constipation type [facility] Diagnosis Lymphedema- Primary Other noninfectious lymphedema Venous insufficiency (chronic) (peripheral) Unspecified venous (peripheral) insufficiency Non-pressure chronic ulcer right lower leg, limited to breakdown skin (HCC) 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) Decreased mobility [facility]* Diagnosis Venous insufficiency (chronic) (peripheral)- Primary Unspecified venous (peripheral) insufficiency Lymphedema Other noninfectious lymphedema Non-pressure chronic ulcer right lower leg, limited to breakdown skin (HCC) 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) Decreased mobility [facility] Diagnosis Venous insufficiency (chronic) (peripheral)- Primary [...] insufficiency Decreased mobility [facility]* Diagnosis Non-pressure chronic ulcer of other part of right foot with fat layer exposed ([facility])- Primary Venous insufficiency (chronic) (peripheral) Unspecified venous (peripheral) insufficiency Decreased mobility [facility] Diagnosis Nonintractable headache, unspecified chronicity pattern, unspecified headache type- Primary [facility]* Diagnosis 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)- Primary Non-pressure chronic ulcer left lower leg, limited to breakdown skin ([facility]) Venous insufficiency (chronic) (peripheral) Unspecified venous (peripheral) insufficiency Decreased mobility [facility]* Diagnosis Chronic venous hypertension (idiopathic) with ulcer of right lower extremity (CODE) ([facility]) [I87.311]- Primary Non-pressure chronic ulcer of other part of right lower leg with fat layer exposed ([facility]) [L97.812] Chronic venous hypertension (idiopathic) with ulcer of left lower extremity (CODE) ([facility]) [I87.312] Non-pressure chronic ulcer of other part of left lower leg with fat layer exposed ([facility]) [L97.822] Peripheral venous insufficiency [I87.2] Unspecified venous (peripheral) insufficiency [facility]* Diagnosis Chest pain- Primary Unspecified chest pain Chest pain, unspecified type Hyperkalemia Hyperpotassemia EDWARDO (acute kidney injury) ([facility]) ([facility]) Chest pain on breathing Painful respiration Stable angina pectoris ([facility]) ([facility]) Idiopathic chronic venous hypertension of right lower extremity with ulcer ([facility]) Peripheral vascular disease, unspecified (HCC) Peripheral vascular disease, unspecified Venous insufficiency (chronic) (peripheral) Unspecified venous (peripheral) insufficiency Non-pressure chronic ulcer of other part of right foot with fat layer exposed ([facility]) Depression Depressive disorder, not elsewhere classified Essential hypertension, benign Hemiplegia ([facility]) ([facility]) Unspecified hemiplegia affecting unspecified side Obesity, Class I, BMI 30-34.9 Hyperlipidemia Other and unspecified hyperlipidemia Idiopathic chronic venous hypertension of right lower extremity with ulcer ([facility]) [facility]* Diagnosis Non-pressure chronic ulcer of [...] with ulcer of left lower extremity (CODE) ([facility]) [I87.312] Chronic venous hypertension (idiopathic) with ulcer of right lower extremity (CODE) ([facility]) [I87.311] Non-pressure chronic ulcer of other part [...] sequela documented in this encounter [facility] for referral (narrative)No reason for referral information [facility] Work Phone: Summary Purpose Family History No Family History Records FoundNo Family History Records FoundNo Family History Records FoundNo Family History Records FoundNo Family History Records FoundNo Family History Records Found Advance Directives No Advanced Directives Records FoundDocuments on File Type Date Recorded 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 * Hypertension: Emergency or Urgency (Thai) * Headache (Thai) documented in this encounter* Attachments The following attachments cannot be sent through Care Everywhere. * Head Injury: Closed: General Info (Thai) * Lacerations: [place] (Thai) documented in this encounter Assessments Diagnosis Hypertensive urgency Unspecified essential hypertension Acute nonintractable headache, unspecified headache type Diagnosis Injury of head, initial encounter- Primary Laceration of scalp, initial encounter Chief Complaint and Reason for Visit Chief Complaint PENITENTIARY LABWORK PENITENTIARY LABWORK Chief Complaint PENITENTIARY LABWORK PENITENTIARY LAB WORK PENITENTIARY LABWORK Chief Complaint PENITENTIARY LABWORK PENITENTIARY LAB WORK PENITENTIARY LAB WORK Chief Complaint PENITENTIARY LABWORK PENITENTIARY LAB WORK PENITENTIARY LAB WORK PENITENTIARY LAB WORK Chief Complaint PENITENTIARY LAB WOR K PENITENTIARY LAB WORK LABWORK Chief Complaint PENITENTIARY LAB WOR K PENITENTIARY LAB WORK LABWORK LABWORK Chief Complaint PENITENTIARY LAB WOR K LABWORK LABWORK LABWORK Chief Complaint LABWORK LABWORK LABWORK LABWORK PENITENTIARY LAB WORK Chief Complaint PENITENTIARY LABWORK LABWORK PENITENTIARY LABWORK LABWORK PENITENTIARY LABWORK PENITENTIARY LABWORK PENITENTIARY LAB WORK PENITENTIARY LAB WORK Chief Complaint PENITENTIARY LABWORK LABWORK PENITENTIARY LABWORK PENITENTIARY LABWORK PENITENTIARY LAB WORK PENITENTIARY LAB WORK PENITENTIARY LABWORK Chief Complaint LABWORK PENITENTIARY LABWORK PENITENTIARY LABWORK PENITENTIARY LAB WORK PENITENTIARY LAB WORK PENITENTIARY LABWORK PENITENTIARY LABWORK PENITENTIARY LABWORK Chief Complaint PENITENTIARY LAB WOR K PENITENTIARY LABWORK PENITENTIARY LABWORK PENITENTIARY LABWORK Chief Complaint PENITENTIARY LABWORK PENITENTIARY LABWORK PENITENTIARY LABWORK PENITENTIARY LABWORK PENITENTIARY LABWORK LABWORK Chief Complaint PENITENTIARY LABWORK PENITENTIARY LABWORK PENITENTIARY LABWORK LABWORK PENITENTIARY LAB WORK LABWORK Chief Complaint PENITENTIARY LABWORK PENITENTIARY LABWORK LABWORK PENITENTIARY LAB WORK LABWORK PENITENTIARY LAB WORK Chief Complaint LABWORK PENITENTIARY LAB WORK LABWORK PENITENTIARY LAB WORK PENITENTIARY LAB WORK PENITENTIARY LABWORK Chief Complaint LABWORK LABWORK Chief Complaint LABWORK LABWORK LABWORK Chief Complaint PENITENTIARY LABWORK LABWORK PENITENTIARY LAB WORK LABWORK PENITENTIARY LAB WORK PENITENTIARY LAB WORK Chief Complaint Admit Date PENITENTIARY LAB WORK March 13, 2024 4:40am PENITENTIARY LAB WORK June 10, 2024 4: 00am Chief Complaint Admit Date PENITENTIARY LAB WORK June 10, 2024 4: 00am LABWORK July 08, 2024 5:0 0am Chief Complaint Admit Date PENITENTIARY LAB WORK June 10, 2024 4: 00am LABWORK July 08, 2024 5:0 0am PENITENTIARY LAB WORK July 22, 2024 5 :00am Chief Complaint Admit Date PENITENTIARY LAB WORK June 10, 2024 4: 00am LABWORK July 08, 2024 5:0 0am PENITENTIARY LAB WORK July 22, 2024 5 :00am PENITENTIARY LAB WORK July 29, 2024 4 :00am Reason for Referral Specialty Diagnoses / Procedures Referred By Contac t Referred To Contact Radiology Diagnoses Calculus of gallbladder without cholecystitis without obstruction Peripancreatic abscess Procedures CT abdomen pelvis w contrast Candie Vieyra PA-C [address] [address] Referral ID Status Reason Start Date Expiration Date V isits Requested Visits Authorized [id number] Pending Review 07/29/2022 01/25/2023 1 1 Referral ID Status Reason Start Date Expiration Date V isits Requested Visits Authorized [id number] Authorized 07/29/2022 01/25/2023 1 1 Specialty Diagnoses / Procedures Referred By Contac t Referred To Contact Cardiology Diagnoses Peripheral vascular disease, unspecified (HCC) Venous insufficiency (chronic) (peripheral) 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) Procedures Vascular US lower extremity venous duplex bilateral Demetrius Fenton [address] [facility] [address] [place] [address] Referral ID Status Reason Start Date Expiration Date Visits Requested Visits Authorized [id number] Pending Review Perform Procedure 06/09/2022 12/06/2022 1 1 Specialty Diagnoses / Procedures Referred By Contac t Referred To Contact Radiology Diagnoses Calculus of gallbladder without cholecystitis without obstruction Peripancreatic abscess Procedures CT abdomen pelvis w contrast Candie Vieyra PA-C [address] [place] [address] [place] [address] Referral ID Status Reason Start Date Expiration Date Visits Re quested Visits Authorized [id number] Closed 09/30/2022 10/30/2022 1 1 Additional Source Comments (unrecognized sect ion and content) No Status Records FoundNo Status Records FoundNo Status Records FoundNo Status Records FoundNo Status Records FoundNo Status Records Found INFORMATION SOURCE (unrecogn ized section and content) DATE CREATED AUTHOR 04/05/2019 [facility] DATE CREATED AUTHOR AUTHOR'S ORGANIZ ATION 10/14/2021 [facility] DATE CREATED AUTHOR AUTHOR'S ORGANIZ ATION 11/08/2021 [facility] DATE CREATED AUTHOR AUTHOR'S ORGANIZ ATION 04/11/2024 [facility] DATE CREATED AUTHOR AUTHOR'S ORGANIZ ATION 07/09/2024 [facility] DATE CREATED AUTHOR AUTHOR'S ORGANIZ ATION 10/20/2024 [facility] Reason for Visit (unrecogniz ed section and content) Reason Comments Hypertension Reason Comments Appointment needs outpatient cys toscopy in the OR Reason Comments Head Injury Fall Reason Comments Leg Swelling Reason Onset Date Comments OTHER 07/15/2022 Reason Comments New Patient ALS PRODUCT SAF[employer]Y LEAD refer by angel fenton gallbladder Specialty Diagnoses / Procedures Referred By Contac t Referred To Contact General Surgery Diagnoses Disease of gallbladder, unspecified Procedures NC ABDOMEN WALL SURG PROC UNLISTED Demetrius Fenton [address] [place] [address] Brady Powell MD [address] [place] [address] Referral ID Status Reason Start Date Expiration Date V isits Requested Visits Authorized [id number] Closed Specialty Services Required 07/28/2022 01/27/2023 1 1 Specialty Diagnoses / Procedures Referred By Contac t Referred To Contact Radiology Diagnoses Calculus of gallbladder without cholecystitis without obstruction Peripancreatic abscess Procedures CT abdomen pelvis w contrast Candie Vieyra PA-C [address] [place] [address] [place] [address] Referral ID Status Reason Start Date Expiration Date Visits Re quested Visits Authorized [id number] Closed 09/30/2022 10/30/2022 1 1 Reason Comments Post-op ALS PO 2WK LAP RAMBO Reason Comments Suicidal [facility]. Pt told staff at care home that he was thinking about driving his [...] pain, unspecified type Procedures . Brenda Hagan [address] [place] [address] [facility] [address] [place] [address] Referral ID Status Reason Start Date Expiration Date Visits Re quested Visits Authorized [id number] 1 1 Reason Comments Follow Up Chronic daily headac hes Source Comments (unrecognize d section and content) In the event this informatio n is protected by the Federal Confidentiality of Alcohol and Drug Abuse Patient Records regulations: The Federal rules restrict any use of the information to criminally investigate or prosecute any alcohol or drug abuse patient.[facility] the event this information is protected by the Federal Confidentiality of Alcohol and Drug Abuse Patient Records regulations: The Federal rules restrict any use of the information to criminally investigate or prosecute any alcohol or drug abuse patient.[facility] the event this information is protected by the Federal Confidentiality of Alcohol and Drug Abuse Patient Records regulations: The Federal rules restrict any use of the information to criminally investigate or prosecute any alcohol or drug abuse patient.[facility] the event this information is protected by the Federal Confidentiality of Alcohol and Drug Abuse Patient Records regulations: The Federal rules restrict any use of the information to criminally investigate or prosecute any alcohol or drug abuse patient.[facility] Telephone Encounter - Raul Banks - 01/24/2020 3:36 PM EDTTelephone Encounter - Margaret Christopher (Flight Teacher) - 01/23/2020 5:10 PM EDT Miscellaneous Notes (unrecog nized section and content) Pt seen at [place], [place] to schedule cysto, dilation in pt/guardian are interested. If they'd prefer [place] let one of our [place] docs know Raul Banks MD Please contact the patients guardian and arrange a cystoscopy in the OR as an outpatient with Dr. Banks Urinary retention, bulbar stricture He will be discharged to [place] documented in this encounter Care Teams (unrecognized [...] WICK Attending Provider, Referring Provi javier Active Phone Manager Relationship Specialty Start Date End Date Yogi Smith MD [address] [place] [address] PCP - General Family Medicine 04/10/21 Phone Manager Relationship Specialty Start Date End Date Yogi Smith MD [address] [place] [place] [address] PCP - General Family Medicine 04/10/21 Phone Manager Relationship Specialty Start Date End Date Yogi Smith MD [address] [place] [address] PCP - General Family Medicine 04/10/21 Phone Manager Relationship Specialty Start Date End Date Yogi Smith MD [address] [place] [address] PCP - General Family Medicine 04/10/21 Team Status: Inactive Member Role Status Dates Gunnar Cummings Attending Provider Active Team Status: Inactive Member Role Status Dates Demetrius Fenton Attending Provider Active Team Status: Active Member Role Status Dates Demetrius Fenton Attending Provider Active Phone Manager Relationship Specialty Start Date End Date DianasundayDemetrius [address] [place] [phone] PCP - General Internal Medicine 06/09/22 Phone Manager Relationship Specialty Start Date End Date Demetrius Fenton[address] [place] [phone] PCP - General Internal Medicine 06/09/22 Phone Manager Relationship Specialty Start Date End Date Demetrius Fenton[address] [place] [phone] PCP - General Internal Medicine 06/09/22 Phone Manager Relationship Specialty Start Date End Date DianasundayDemetrius [address] [place] [phone] PCP - General Internal Medicine 06/09/22 Phone Manager Relationship Specialty Start Date End Date Dianasunday Demetrius Lucas[address] [place] [phone] PCP - General Internal Medicine 06/09/22 Phone Manager Relationship Specialty Start Date End Date Demetrius Fenton Sh[address] [place] [phone] PCP - General Internal Medicine 06/09/22 Phone Manager Relationship Specialty Start Date End Date Demetrius Fenton [address] [place] [phone] PCP - General Internal Medicine 06/09/22 Phone Manager Relationship Specialty Start Date End Date Demetrius Fenton [address] [place] [phone] PCP - General Internal Medicine 06/09/22 Phone Manager Relationship Specialty Start Date End Date Demetrius Fenton [address] [place] [phone] PCP - General Internal Medicine 06/09/22 Phone Manager Relationship Specialty Start Date End Date Demetrius Fenton [address] [place] [phone] PCP - General Internal Medicine 06/09/22 Phone Manager Relationship Specialty Start Date End Date Demetrius Fenton [address] [place] [phone] PCP - General Internal Medicine 06/09/22 Phone Manager Relationship Specialty Start Date End Date Demetrius Fenton [address] [place] [phone] PCP - General Internal Medicine 06/09/22 Team Status: Inactive Member Role Status Dates Gunnar WICK Attending Provider, Referring Prov ider Active Phone Manager Relationship Specialty Start Date End Date Demetrius Fenton MD [address] [place] [address] PCP - General Internal Medicine 06/16/23 Phone Manager Relationship Specialty Start Date End Date Demetrius Fenton [address] [place] [phone] PCP - General Internal Medicine 06/09/22 Phone Manager Relationship Specialty Start Date End Date Demetrius Fenton MD [address] [place] [address] PCP - General Internal Medicine 06/16/23 Phone Manager Relationship Specialty Start Date End Date Demetrius Fenton [address] [place] [phone] PCP - General Internal Medicine 06/09/22 Phone Manager Relationship Specialty Start Date End Date Demetrius Fenton [address] [place] [phone] PCP - General Internal Medicine 06/09/22 Phone Manager Relationship Specialty Start Date End Date Demetrius Fenton [address] [place] [phone] PCP - General Internal Medicine 06/09/22 Phone Manager Relationship Specialty Start Date End Date Demetrius Fenton [address] [place] [phone] PCP - General Internal Medicine 06/09/22 Phone Manager Relationship Specialty Start Date End Date Demetrius Fenton [address] [place] [phone] PCP - General Internal Medicine 06/09/22 Phone Manager Relationship Specialty Start Date End Date Demetrius Fenton [address] [place] [address] PCP - General Internal Medicine 06/09/22 Phone Manager Relationship Specialty Start Date End Date Demetrius Fenton [address] [place] [address] PCP - General Internal Medicine 06/09/22 Phone Manager Relationship Specialty Start Date End Date Demetrius Fenton [address] [place] [address] PCP - General Internal Medicine 06/09/22 Phone Manager Relationship Specialty Start Date End Date Demetrius Fenton [address] [place] [phone] PCP - General Internal Medicine 06/09/22 Phone Manager Relationship Specialty Start Date End Date Demetrius Fenton [address] [place] [phone] PCP - General Internal Medicine 06/09/22 Phone Manager Relationship Specialty Start Date End Date Demetrius Fenton [address] [place] [phone] PCP - General Internal Medicine 06/09/22 Phone Manager Relationship Specialty Start Date End Date Demetrius Fenton [address] [place] [phone] PCP - General Internal Medicine 06/09/22 Phone Manager Relationship Specialty Start Date End Date Demetrius Fenton [address] [place] [address] PCP - General Internal Medicine 06/09/22 Phone Manager Relationship Specialty Start Date End Date Demetrius Fenton MD [address] [place] [address] PCP - General Internal Medicine 06/16/23 Team Status: Active Member Role Status Dates Demetrius WICK Attending Provider Active Sta rt: March 13, 2024 Demetruis WICK Referring Provider Active Sta rt: March 13, 2024 Team Status: Inactive Member Role Status Dates Demetrius WICK Attending Provider Active Sta rt: June 10, 2024 End: June 10, 2024 Demetrius WICK Referring Provider Active Sta rt: June [...] 29, 2024 End: July 29, 2024 Demetrius WICK Referring Provider Active Sta rt: July [...] 1 dose 2256 (Given - Provider: Lucho Mcneill RN) PRN Medication Order 06/21/2023 06/22/2023 06/23/2023 [...] 0827 (Given - Provider: Demetrius Castillo RN) 09 (Given - Provider: Becky Upton RN) aspirin chewable tablet 81 mg 81 mg, Oral, Daily, First dose on Mon06/08/22 at 0900 0853 (Given - Provider: Joslyn Reyes RN) 08 (Given - Provider: Demetrius Castillo RN) 09 (Given - Provider: Becky Upton RN) divalproex sprinkle (Depakote Sprinkle) DR capsule 250 mg 250 mg, Oral, Every 12 hours scheduled (2 times per day), First dose on Mon06/12/22 at 0900, Do not crush or chew. 0852 (Given - Provider: Joslyn Reyes RN)2034 (Given - Provider: Lilil Ku RN) 826 (Given - Provider: Demetrius Castillo RN)2026 (Given - Provider: Lilli Barragan RN) 09 (Given - Provider: Becky Upton RN) enoxaparin [...] 0.5 mL 0.5 mL, IntraMUSCular, Once, On Mon06/09/22 at 0900, For 1 dose, If not given at scheduled administration time, reschedule for next day. melatonin tablet 10 mg 10 mg, Oral, Nightly, First dose on Mon06/12/22 at 2100 2034 (Given - Provider: Lilli Ku RN) 2026 (Given - Provider: Lilli Barragan RN) memantine (Namenda) tablet 10 mg 10 mg, [...] skin folds) 0827 (Given - Provider: Demetrius Castillo, SO)2028 (Given - Provider: Lilli Barragan RN) 0905 (Given - Provider: Becky Upton RN) senna-docusate sodium (Senokot-S) 8.6-50 MG tablet 2 tablet 2 tablet, Oral, Daily, First dose on Mon06/09/22 at 1000 0852 (Given - Provider: Joslyn Reyes RN) 0827 (Given - Provider: Demetrius Castillo RN) 0903 (Given - Provider: Becky Upton RN) sodium chloride tablet 3 g (CANCELED) 3 g, Oral, 3 times daily with meals, First dose (after last modification) on Mon06/19/22 at 1200 0853 (Given - Provider: Joslyn Reyes RN) torsemide (Demadex) tablet 10 mg (CANCELED) 10 mg, Oral, 2 times daily, First dose on Mon06/19/22 at 2100 0853 (Given - Provider: Joslyn Reyes RN) venlafaxine (Effexor) tablet 75 mg 75 mg, Oral, 2 times daily, First dose on Mon06/12/22 at 0900 0852 (Given - Provider: Joslyn Reyes RN)2034 (Given - Provider: Lilli Ku RN) 0827 (Given - Provider: Demetrius Castillo RN)2026 (Given - Provider: Lilli Barragan, SO) 09 (Given - Provider: Becky Upton RN) PRN [...] 1813 (Given - Provider: Joslyn Reyes RN) 014 (Given - Provider: Lilli Barragan RN) bisacodyl (Dulcolax) suppository 10 mg 10 mg, [...] BE BASED ON THE PRIMARY CLINICAL RECORDS. [facility]. provides no warranty or guarantee of the accuracy or completeness of information in this document.
[2024-10-21 09:40] LABS: Anion Gap 15 (5-15); BUN 15 mg/dL (4-19); BUN/Creat Ratio 14.2 RATIO (10-20); Calcium,Total 9.3 mg/dL (7.6-11.0); Carbon Dioxide 21.7 mmol/L (21.0-32.0); Chloride 100 mmol/L (98-108); Glucose 117 mg/dL (70-99); Potassium 4.7 mmol/L (3.3-5.1)
[2024-10-21 11:54] LABS: Hematocrit 41.9 % (40-54); Hemoglobin 14.3 g/dL (13.0-16.5); Mean Corp Hgb Conc 34.1 g/dL (32-36); Mean Corpuscular Volume 92.5 fL (80-94); Mean Platelet Vol. 11.3 fl (6.2-12.0); Platelet Count 131 K/mm3 (150-450); RBC Distribution Width CV 12.9 % (11.6-14.6); RBC Distribution Width SD 42.5 fl (35.1-43.9); Red Blood Count 4.53 M/mm3 (4.6-6.2); White Blood Count 8.9 K/mm3 (4.4-11.0)
== END ==
LOC: OLS.SANC 05:00
PROVIDERS: Visit Provider Family Medicine
DX: I10 Essential (primary) hypertension (principal); E78.5 Hyperlipidemia, unspecified
CPT/HCPCS: 36415; 80048; 85027

== ENCOUNTER → 2024-12-05 | Outpatient (REF) | payer MEDICARE, MEDICAID, SELFPAY ==
--- OUTSIDE RECORDS SUMMARY | 2024-12-05 04:08 | XMS RPT_ITS | CCD ---
Author Organization [facility] Care Team Providers Care Reimbursement Director Name Role Phone Unavailable Primary Care Provider UnavailGunnar Kenney Primary Care Provider Yogi Smith MD Primary Care Provider Unavailable Primary Care Provider UnavailDemetrius Macedo Primary Care Provider [phone] Demetrius Fenton Primary Care Provider Demetrius Fenton [...] Unavailable CLAUDIA, JULISSA Attending Unavailable KATSAROS, PETER NIKETAS Primary Care UnavailCHHAYA Rodriguez Attending Unavailable Demetrius Fenton MD Primary Care Provider Katsasunday WICK, Peter Attending Provider Unavailab le Katsaros OLS, Peter Referring Provider Unavailab le Katsaros OLS, Peter Attending Provider Unavailab le Katsaros OLS, Peter Referring Provider Unavailab le Katsaros OLS, Peter Referring Unavailable Katsaros OLS, Peter Attending Unavailable Katsaros OLS, Peter Attending Unavailable Katsaros OLS, Peter Attending Unavailable Gunning OLS, Gunnar Attending Unavailable Katsaros OLS, Peter Referring Unavailable Katsaros OLS, Peter Attending Unavailable Katsaros OLS, Peter Attending Unavailable Katsaros OLS, Demetrius Attending Unavailable Katsaros OLS, Peter Attending Unavailable Katsaros OLS, Peter Attending Unavailable Katsaros OLS, Peter Referring Unavailable Katsaros OLS, Peter Attending Unavailable Allergies Allergy Classification Reported Allergen(s) Allergy Type Date of Onset Reaction(s) Facility hydrALAZINE (3 sources) hydrALAZINE Drug Allergy 05-25-19 Unknown [facility] Lincosamides (antibiotic) (3 sources) Clindamycin Drug Allergy 09-26-19 14 [facility] Opioid Agonists (3 sources) traMADol Drug Allergy 05-25-19 Unknown [facility] Pollen (3 sources) Pollen Substance Allergy 10-26-19 [facility] Sulfamethoxazole / Trimethoprim (3 sources) Sulfamethoxazole / Trimethoprim Drug Allergy 05-25-19 Unknown [facility] (20 sources) Clindamycin; Translations: [CLINDAMYCIN] Drug Allergy 09-26-19 14 Rash [facility] Work Phone: (20 sources) Other Propensity to adverse reactions 03-09-20 [facility] Work Phone: (1 source) Cat Gut Sutures [Other] Propensity to adverse reactions 03-09-20 [facility] (20 sources) hydrALAZINE; Translations: [HYDRALAZINE] Drug Allergy 05-25-19 Unknown [facility] (20 sources) Sulfamethoxazole / Trimethoprim; Translations: [SULFAMETHOXAZOLE-TR IMETHOPRIM] Drug Allergy 05-25-19 Unknown [facility] (20 sources) Temazepam; Translations: [TEMAZEPAM] Propensity to adverse reactions 05-25-19 Unknown [facility] (20 sources) traMADol; Translations: [TRAMADOL] Drug Allergy 05-25-19 Unknown [facility] (20 sources) Pollen Propensity to adverse reactions 10-26-19 [facility] (3 sources) Temazepam Drug Allergy 05-25-19 Unknown [facility] (1 source) Pollen Drug Allergy 07-09-19 Unknown [facility] NEGATED: Highlighted row has been ruled out! (12 sources) Other Propensity to adverse reactions 03-09-20 [facility] Work Phone: Medications Current Medications Medication Drug Class(es) Dates Sig (Normalized) Sig (Original) acetaminophen 325 mg oral capsule (20 sources) take 2 capsules by mouth every six hours as needed acetaminophen 325 mg cap Take 650 mg by mouth every 6 hours as needed. Active take 2 tablets by mo uth every six hours as needed for pain [...] 07/29/2022 Discontinued take 2 tablets by mo uth three times daily acetaminophen (TYLENOL) 325 MG tablet Take 650 mg by mouth 3 times daily 0 Active Comment on above: Take 650 mg by mouth every 4 hours. acetaminophen 325 mg / HYDROcodone bitartrate 5 mg oral tablet (20 sources) Opioid Agonist Start: 07-09-2022 take 1 tablet by mouth every eight hours HYDROcodone-aceta minophen ([place]) 5-325 MG tablet Take 1 tablet by mouth in the morning and 1 tablet at noon and 1 tablet before bedtime. 07/09/2022 Active take 1 tablet by [facility] every eight hours as needed HYDROcodone-acetaminophen (NORCO) [...] every 8 hours as needed for pain. [id number] 200 actuat albuterol 0.09 mg/actuat metered dose [...] Start: 06-21-2018 take 2 tablets by [facility] once daily amLODIPine (NORVASC) 5 MG tablet [...] above: Take 1 capsule by [facility] once each week. ciprofloxacin 500 mg oral tablet (13 sources) Quinolone Antimicrobial Start: 03-08-2022 ciprofloxacin (Cipro) 500 MG tablet cloNIDine hydrochloride 0.1 mg oral tablet (20 sources) Central alpha-2 Adrenergic Agonist Start: 06-24-2022 cloNIDine HCl (CATAPRES) 0.1 mg tablet Take 0.1 mg by mouth. 06/24/2022 Active Start: 05-27-2022 cloNIDine (Cat apres-TTS) 0.3 MG/24HR End: 06-23-2022 take 1 tablet by [facility] twice daily cloNIDine (CATAPRES) 0.1 MG tablet [...] 1000 mg / omega-3 acid ethyl esters (jail) 300 mg delayed release oral capsule (7 sources) take 2000 mg by mouth twice daily Sartell-3 Fatty Acids (FISH OIL) 1000 MG CPDR [...] on above: Take 1 capsule by mo [facility] once daily. docusate sodium 50 mg / sennosides, jail 8.6 mg oral tablet (20 sources) Start: [...] above: Take 2 tablets by [facility]. doxycycline hyclate 100 mg oral capsule (12 [...] Start: 06-25-2022 ergocalciferol (Vitamin D2) 1.25 MG (95494 UT) capsule 2 ml famotidine 10 mg/ml injection (20 sources) Histamine-2 Receptor Antagonist Start: 06-09-2022 take 1 dose intravenously once 20 mg, IntraVENous, Administer over 2 Minutes, Once, On [facility] 06/09/22 at 0415, For 1 dose [...] End: 06-23-2022 take 2 tablets by mo [facility] once daily lisinopril (PRINIVIL;ZESTRIL) 20 MG tablet [...] 2 times d aily, First dose on [facility] 06/23/22 at 1200 Start: 06-09-2022 End: 06-09-2022 5 mg, IntraVENous, Every 5 m in PRN, patient has chest pain, ST segment elevation on EKG, heart rate 150 or greater, SBP 240 mmHg or greater, or DBP 120 mmHg or greater, Starting on [facility] 06/09/22 at 1442, For 3 doses, CV [...] Drug Start: 05-24-2022 minocycline 100 MG capsule Sartell-3 Fatty Acids (FISH OIL) 1000 MG CPDR (8 sources) take 2000 mg by mouth twice daily Sartell-3 Fatty Acids (FISH OIL) 1000 MG CPDR [...] mouth tw ice daily. polyethylene glycol 3350 26073 mg powder for oral solution (7 sources) [...] on above: Take 1 capsule by mo [facility] once daily. topiramate 25 mg oral capsule [...] 4 times daily PRN, wheezing, Starting on 3/8/23 at 0441 amoxicillin 875 mg / clavulanate [...] 3 mg/ml oral solution (2 sources) Uncompetitive O-jgnwho-R-aspartate Receptor Antagonist, Sigma-1 Agonist End: 06-23 1 [...] above: Take 1 tablet by [facility] once daily. glucagon (rdna) 1 mg injection [...] pain (4-6), severe pain (7-10), Starting on 3/5/23 at 0921 If oral and IV narcotics [...] bedtime. Active take 2 tablets by mo uth once daily melatonin 5 MG tablet Take 10 mg by mouth Nightly. Active take 1 tablet by lakes[facility] once daily at bedtime melatonin 3 mg tablet Take 3 mg by mouth daily at bedtime. 0 Active take 3 mg by mouth once daily me latonin 5 MG tablet Take 3 mg by mouth Nightly. 0 Active Comment on above: Take 3 mg by mouth d aily at bedtime. memantine hydrochloride 10 mg oral tablet (20 sources) L-ujcokn-O-aspartate Receptor Antagonist Start: 2014 End: 2024 take [...] 25 mg by mouth 2 times daily / tab 0 Active End: 02-19-2020 QUEtiapine (SEROQUEL) [...] on above: Take 2 capsules by m out once daily. (2 sources) End: 06-23-2022 (2 sources) Start: 06-15-2022 End: 06-17-2022 take 1250 mg intravenously every twelve hours (10 sources) Start: 06-15-2022 End: 06-17-2022 take 2000 mg intravenously every eight hours 2,000 mg, IntraVENous, at 33.3 mL/hr, Administer over 180 Minutes, Every 8 hours, First dose on Mon06/15/22 at 2200 [facility] Med-Surg/Crit Care Init Dosing MEENU 8, Composite [employer] Teacher cl >=50, 3h Suspected Indication (Select all [...] 11-16-2022 Episodic Other aftercare (2 sources) Other detention (current) drug therapy; Translations: [Other light oil operator (current) drug therapy] Onset: 03-27-2024 Episodic Other [...] current use of drug therapy; Translations: [Other light oil operator (current) drug therapy] Onset: 02-26-2022 07-27-2022 Episodic [...] Test Name Value Interpretation Reference Range Facility Basic Metabolic Profile (BMP )on 10-21-2024 BUN/CRE 14.2 RATIO Normal 01-27 [facility] Comment on above: Order Comment: 107.1 Performed By: #### L 501.8100, L500.4100, L100.0500 #### [facility] [address] [place], [address] Calcium [Mass/Vol] 9.3 mg/dL Normal 7.6-11.0 [facility] Comment on above: Order Comment: 107.1 Performed By: #### L 501.8100, L500.4100, L100.0500 #### [facility] [address] [place], [address] Chloride [Moles/Vol] 100 mmol/L Normal 98-108 [facility] Comment on above: Order Comment: 107.1 Performed By: #### L 501.8100, L500.4100, L100.0500 #### [facility] [address] [place], [address] CO2 [Moles/Vol] 21.7 mmol/L Normal 21.0-32.0 [facility] Comment on above: Order Comment: 107.1 Performed By: #### L 501.8100, L500.4100, L100.0500 #### [facility] [address] [place], [address] Creatinine [Mass/Vol] 1.07 mg/dL Normal 0.70-1.20 [facility] Comment on above: Order Comment: 107.1 Performed By: #### L 501.8100, L500.4100, L100.0500 #### [facility] [address] [place], [address] GAP 15 Normal 5-15 [facility] Comment on above: Order Comment: 107.1 Performed By: #### L 501.8100, L500.4100, L100.0500 #### [facility] [address] [place], [address] GFR/1.73 sq M.predicted among non-blacks MDRD (S/P/Bld) [Vol rate/Area] 79 mL/min/{1.73_m2} Normal >60 [facility] Comment on above: Order Comment: 107.1 Result Comment: mL/m in/1.73m2 CKD-EPI Creatinine Equation (2020) Performed By: #### L 501.8100, L500.4100, L100.0500 #### [facility] [address] [place], [address] Glucose [Mass/Vol] 117 mg/dL High 70-99 [facility] Comment on above: Order Comment: 107.1 Performed By: #### L 501.8100, L500.4100, L100.0500 #### [facility] [address] [place], [address] Potassium [Moles/Vol] 4.7 mmol/L Normal 3.3-5.1 [facility] Comment on above: Order Comment: 107.1 Performed By: #### L 501.8100, L500.4100, L100.0500 #### [facility] [address] [place], [address] Sodium [Moles/Vol] 137 mmol/L Normal 133-145 [facility] Comment on above: Order Comment: 107.1 Performed By: #### L 501.8100, L500.4100, L100.0500 #### [facility] [address] [place], [address] Urea nitrogen [Mass/Vol] 15 mg/dL Normal 4-19 [facility] Comment on above: Order Comment: 107.1 Performed By: #### L 501.8100, L500.4100, L100.0500 #### [facility] [address] [place], [address] CBC-Complete Blood [facility] 10-21-2024 Erythrocyte distribution width (RBC) [Ratio] 12.9 % Normal 11.6-14.6 [facility] Comment on above: Order Comment: 107.1 Performed By: #### L 501.8100, L500.4100, L100.0500 #### [facility] [address] [place], [address] Hematocrit (Bld) [Volume fraction] 41.9 % Normal 40-54 [facility] Comment on above: Order Comment: 107.1 Performed By: #### L 501.8100, L500.4100, L100.0500 #### [facility] [address] [place], [address] Hemoglobin (Bld) [Mass/Vol] 14.3 g/dL Normal 13.0-16.5 [facility] Comment on above: Order Comment: 107.1 Performed By: #### L 501.8100, L500.4100, L100.0500 #### [facility] [address] [place], [address] MCH (RBC) [Entitic mass] 31.6 pg Normal 27.0-32.0 [facility] Comment on above: Order Comment: 107.1 Performed By: #### L 501.8100, L500.4100, L100.0500 #### [facility] [address] [place], [address] MCHC (RBC) [Mass/Vol] 34.1 g/dL Normal 32-36 [facility] Comment on above: Order Comment: 107.1 Performed By: #### L 501.8100, L500.4100, L100.0500 #### [facility] [address] [place], [address] MCV (RBC) [Entitic vol] 92.5 fL Normal 80-94 [facility] Comment on above: Order Comment: 107.1 Performed By: #### L 501.8100, L500.4100, L100.0500 #### [facility] [address] [place], [address] Platelet mean volume (Bld) [Entitic vol] 11.3 fL Normal 6.2-12.0 [facility] Comment on above: Order Comment: 107.1 Performed By: #### L 501.8100, L500.4100, L100.0500 #### [facility] [address] [place], [address] Platelets (Bld) [#/Vol] 131 10*3/uL Low 150-450 [facility] Comment on above: Order Comment: 107.1 Performed By: #### L 501.8100, L500.4100, L100.0500 #### [facility] [address] [place], [address] RBC (Bld) [#/Vol] 4.53 10*6/uL Low 4.6-6.2 [facility] Comment on above: Order Comment: 107.1 Performed By: #### L 501.8100, L500.4100, L100.0500 #### [facility] [address] [place], [address] RDW SD 42.5 fl Normal 35.1-43.9 [facility] Comment on above: Order Comment: 107.1 Performed By: #### L 501.8100, L500.4100, L100.0500 #### [facility] [address] [place], [address] WBC (Bld) [#/Vol] 8.9 10*3/uL Normal 4.4-11.0 [facility] Comment on above: Order Comment: 107.1 Performed By: #### L 501.8100, L500.4100, L100.0500 #### [facility] [address] [place], [address] CBC-Complete Blood Cnt No ffon 09-20-2024 Erythrocyte distribution width (RBC) [Ratio] 12.9 % Normal 11.6-14.6 [facility] Comment on above: Order Comment: 107.1 Performed By: #### L 501.8100, L500.4100, L100.0500 #### [facility] [address] [place], [address] Hematocrit (Bld) [Volume fraction] 40.0 % Normal 40-54 [facility] Comment on above: Order Comment: 107.1 Performed By: #### L 501.8100, L500.4100, L100.0500 #### [facility] [address] [place], [address] Hemoglobin (Bld) [Mass/Vol] 13.8 g/dL Normal 13.0-16.5 [facility] Comment on above: Order Comment: 107.1 Performed By: #### L 501.8100, L500.4100, L100.0500 #### [facility] [address] [place], [address] MCH (RBC) [Entitic mass] 31.6 pg Normal 27.0-32.0 [facility] Comment on above: Order Comment: 107.1 Performed By: #### L 501.8100, L500.4100, L100.0500 #### [facility] [address] [place], [address] MCHC (RBC) [Mass/Vol] 34.5 g/dL Normal 32-36 [facility] Comment on above: Order Comment: 107.1 Performed By: #### L 501.8100, L500.4100, L100.0500 #### [facility] [address] [place], [address] MCV (RBC) [Entitic vol] 91.5 fL Normal 80-94 [facility] Comment on above: Order Comment: 107.1 Performed By: #### L 501.8100, L500.4100, L100.0500 #### [facility] [address] [place], [address] Platelet mean volume (Bld) [Entitic vol] 10.7 fL Normal 6.2-12.0 [facility] Comment on above: Order Comment: 107.1 Performed By: #### L 501.8100, L500.4100, L100.0500 #### [facility] [address] [place], [address] Platelets (Bld) [#/Vol] 118 10*3/uL Low 150-450 [facility] Comment on above: Order Comment: 107.1 Performed By: #### L 501.8100, L500.4100, L100.0500 #### [facility] [address] [place], [address] RBC (Bld) [#/Vol] 4.37 10*6/uL Low 4.6-6.2 [facility] Comment on above: Order Comment: 107.1 Performed By: #### L 501.8100, L500.4100, L100.0500 #### [facility] [address] [place], [address] RDW SD 41.6 fl Normal 35.1-43.9 [facility] Comment on above: Order Comment: 107.1 Performed By: #### L 501.8100, L500.4100, L100.0500 #### [facility] [address] [place], [address] WBC (Bld) [#/Vol] 7.0 10*3/uL Normal 4.4-11.0 [facility] Comment on above: Order Comment: 107.1 Performed By: #### L 501.8100, L500.4100, L100.0500 #### [facility] [address] [place], [address] Comprehensive Metabolic Prof [facility] 09-20-2024 Albumin [Mass/Vol] 3.6 g/dL Normal 3.4-4.8 [facility] Comment on above: Order Comment: 107.1 Performed By: #### L 501.8100, L500.4100, L100.0500 #### [facility] [address] [place], [address] Albumin/Globulin [Mass ratio] 1.5 {ratio} Normal 0.9-2.4 [facility] Comment on above: Order Comment: 107.1 Performed By: #### L 501.8100, L500.4100, L100.0500 #### [facility] [address] [place], [address] ALK PHOS 60 U/L Normal 40-129 [facility] Comment on above: Order Comment: 107.1 Performed By: #### L 501.8100, L500.4100, L100.0500 #### [facility] [address] [place], [address] ALT [Catalytic activity/Vol] 30 U/L Normal <=46 [facility] Comment on above: Order Comment: 107.1 Performed By: #### L 501.8100, L500.4100, L100.0500 #### [facility] [address] [place], [address] AST [Catalytic activity/Vol] 31 U/L Normal <=37 [facility] Comment on above: Order Comment: 107.1 Performed By: #### L 501.8100, L500.4100, L100.0500 #### [facility] [address] [place], [address] Bilirubin [Mass/Vol] 0.68 mg/dL Normal 0.00-1.30 [facility] Comment on above: Order Comment: 107.1 Performed By: #### L 501.8100, L500.4100, L100.0500 #### [facility] [address] [place], [address] BUN/CRE 16.6 RATIO Normal 10-20 [facility] Comment on above: Order Comment: 107.1 Performed By: #### L 501.8100, L500.4100, L100.0500 #### [facility] [address] [place], [address] Calcium [Mass/Vol] 9.1 mg/dL Normal 7.6-11.0 [facility] Comment on above: Order Comment: 107.1 Performed By: #### L 501.8100, L500.4100, L100.0500 #### [facility] [address] [place], [address] Chloride [Moles/Vol] 101 mmol/L Normal 98-108 [facility] Comment on above: Order Comment: 107.1 Performed By: #### L 501.8100, L500.4100, L100.0500 #### [facility] [address] [place], [address] CO2 [Moles/Vol] 25.7 mmol/L Normal 21.0-32.0 [facility] Comment on above: Order Comment: 107.1 Performed By: #### L 501.8100, L500.4100, L100.0500 #### [facility] [address] [place], [address] Creatinine [Mass/Vol] 1.16 mg/dL Normal 0.70-1.20 [facility] Comment on above: Order Comment: 107.1 Performed By: #### L 501.8100, L500.4100, L100.0500 #### [facility] [address] [place], [address] GAP 10 Normal 5-15 [facility] Comment on above: Order Comment: 107.1 Performed By: #### L 501.8100, L500.4100, L100.0500 #### [facility] [address] [place], [address] GFR/1.73 sq M.predicted among non-blacks MDRD (S/P/Bld) [Vol rate/Area] 72 mL/min/{1.73_m2} Normal >60 [facility] Comment on above: Order Comment: 107.1 Result Comment: mL/m in/1.73m2 CKD-EPI Creatinine Equation (2020) Performed By: #### L 501.8100, L500.4100, L100.0500 #### [facility] [address] [place], [address] Globulin (S) [Mass/Vol] 2.4 g/dL Normal 2.2-4.2 [facility] Comment on above: Order Comment: 107.1 Performed By: #### L 501.8100, L500.4100, L100.0500 #### [facility] [address] [place], [address] Glucose [Mass/Vol] 125 mg/dL High 70-99 [facility] Comment on above: Order Comment: 107.1 Performed By: #### L 501.8100, L500.4100, L100.0500 #### [facility] [address] [place], [address] Potassium [Moles/Vol] 4.4 mmol/L Normal 3.3-5.1 [facility] Comment on above: Order Comment: 107.1 Performed By: #### L 501.8100, L500.4100, L100.0500 #### [facility] [address] [place], [address] Sodium [Moles/Vol] 137 mmol/L Normal 133-145 [facility] Comment on above: Order Comment: 107.1 Performed By: #### L 501.8100, L500.4100, L100.0500 #### [facility] [address] [place], [address] T PROT 6.0 g/dL Normal 5.9-8.4 [facility] Comment on above: Order Comment: 107.1 Performed By: #### L 501.8100, L500.4100, L100.0500 #### [facility] [address] [place], [address] Urea nitrogen [Mass/Vol] 19 mg/dL Normal 4-19 [facility] Comment on above: Order Comment: 107.1 Performed By: #### L 501.8100, L500.4100, L100.0500 #### [facility] [address] [place], [address] Hemoglobin A1con 09-20-2024 HbA1c (Bld) [Mass fraction] 6.9 % High <=5.6 [facility] Comment on above: Order Comment: 107.1 Result Comment: Norm al < 5.7 % Prediabetic 5.7 - 6.4 % Diabetic >or= 6.5 % Please note range changes. Performed By: #### L 501.8100, L500.4100, L100.0500 #### [facility] [address] [place], [address] Lipid Profileon 09-20-2024 CHOL:HDL 2.73 Normal [facility] Comment on above: Order Comment: 107.1 Performed By: #### L 501.8100, L500.4100, L100.0500 #### [facility] [address] [place], [address] Cholesterol [Mass/Vol] 106 mg/dL Normal <=200 [facility] Comment on above: Order Comment: 107.1 Result Comment: Chol esterol level, Desirable <200 mg/dL Borderline high cholesterol 200-239 mg/dL High cholesterol >=240 mg/dL Recommendations of the NCEP Adult Treatment Panel for the following risk-cutoff thresholds for the [place] population. Performed By: #### L 501.8100, L500.4100, L100.0500 #### [facility] [address] [place], [address] Cholesterol in HDL [Mass/Vol] 39 mg/dL Low [facility] Comment on above: Order Comment: 107.1 Result Comment: Jen onal Cholesterol Education Program (NCEP) guidelines: <40 mg/dL: Low HDL-cholesterol (major risk factor for CHD) >= 60 mg/dL: High HDL-cholesterol (negative risk factor for CHD) HDL-cholesterol is affected by a number of factors, e.g. smoking, exercise, hormones, sex and age. Performed By: #### L 501.8100, L500.4100, L100.0500 #### [facility] [address] [place], [address] Cholesterol in LDL [Mass/Vol] 46 mg/dL Normal [facility] Comment on above: Order Comment: 107.1 Result Comment: Bord vvxkgn=157-419 mg/dL Higher Isvc=582 mg/dL or greater Performed By: #### L 501.8100, L500.4100, L100.0500 #### [facility] [address] [place], [address] Cholesterol in VLDL [Mass/Vol] 22 mg/dL Normal 5-40 [facility] Comment on above: Order Comment: 107.1 Performed By: #### L 501.8100, L500.4100, L100.0500 #### [facility] [address] [place], [address] Triglyceride [Mass/Vol] 108 mg/dL Normal [facility] Comment on above: Order Comment: 107.1 Result Comment: The drugs N-Acetylcysteine and Metamizole may falsely depress this assay. Normal range: <150 mg/dL Borderline High: 150-199 mg/dL High: 200-499 mg/dL Very High: >500 mg/dL Performed By: #### L 501.8100, L500.4100, L100.0500 #### [facility] [address] [place], [address] Serum or plasma valproate me asurement (mass/volume)Ordered By: Demetrius Fenton on 07-29-2024 Valproate [Mass/Vol] 57 ug/mL 50-100 [facility] Comment on above: Valproic Acid concen trations >100 ug/mL are potentially toxic. Valproic Acid (Depakene) Lev alison 07-29-2024 VALPROIC ACID 57 ug/mL Normal 50-100 [facility] Comment on above: Order Comment: 107.1 Result Comment: Valp roic Acid concentrations >100 ug/mL are potentially toxic. Performed By: #### L 501.8100, L500.4100, L100.0500 #### [facility] [address] [place], [address] Anion gap in Serum or Plasma Ordered By: Demetrius Fenton on 07-22-2024 Anion gap [Moles/Vol] 14 mmol/L - [facility] BUN/creatinine ratioOrdered By: Demetrius Fenton on 07-22-2024 Urea nitrogen/Creatinine [Mass ratio] 11.2 mg/mg - [facility] Basic Metabolic Profile (BMP )on 07-22-2024 BUN/CRE 11.2 RATIO Normal 01-27 [facility] Comment on above: Order Comment: 107.1 Performed By: #### L 501.8100, L500.4100, L100.0500 #### [facility] [address] [place], [address] Calcium [Mass/Vol] 9.1 mg/dL Normal 7.6-11.0 [facility] Comment on above: Order Comment: 107.1 Performed By: #### L 501.8100, L500.4100, L100.0500 #### [facility] [address] [place], [address] Chloride [Moles/Vol] 97 mmol/L Low 98-108 [facility] Comment on above: Order Comment: 107.1 Performed By: #### L 501.8100, L500.4100, L100.0500 #### [facility] [address] [place], [address] CO2 [Moles/Vol] 21.4 mmol/L Normal 21.0-32.0 [facility] Comment on above: Order Comment: 107.1 Performed By: #### L 501.8100, L500.4100, L100.0500 #### [facility] [address] [place], [address] Creatinine [Mass/Vol] 1.20 mg/dL Normal 0.70-1.20 [facility] Comment on above: Order Comment: 107.1 Performed By: #### L 501.8100, L500.4100, L100.0500 #### [facility] [address] [place], [address] GAP 14 Normal 5-15 [facility] Comment on above: Order Comment: 107.1 Performed By: #### L 501.8100, L500.4100, L100.0500 #### [facility] [address] [place], [address] GFR/1.73 sq M.predicted among non-blacks MDRD (S/P/Bld) [Vol rate/Area] 69 mL/min/{1.73_m2} Normal >60 [facility] Comment on above: Order Comment: 107.1 Result Comment: mL/m in/1.73m2 CKD-EPI Creatinine Equation (2020) Performed By: #### L 501.8100, L500.4100, L100.0500 #### [facility] [address] [place], [address] Glucose [Mass/Vol] 184 mg/dL High 70-99 [facility] Comment on above: Order Comment: 107.1 Performed By: #### L 501.8100, L500.4100, L100.0500 #### [facility] [address] [place], [address] Potassium [Moles/Vol] 4.4 mmol/L Normal 3.3-5.1 [facility] Comment on above: Order Comment: 107.1 Performed By: #### L 501.8100, L500.4100, L100.0500 #### [facility] [address] [place], [address] Sodium [Moles/Vol] 132 mmol/L Low 133-145 [facility] Comment on above: Order Comment: 107.1 Performed By: #### L 501.8100, L500.4100, L100.0500 #### [facility] [address] [place], [address] Urea nitrogen [Mass/Vol] 13 mg/dL Normal 4-19 [facility] Comment on above: Order Comment: 107.1 Performed By: #### L 501.8100, L500.4100, L100.0500 #### [facility] [address] [place], [address] CBC-Complete Blood Cnt No Di ffon 07-22-2024 Erythrocyte distribution width (RBC) [Ratio] 13.0 % Normal 11.6-14.6 [facility] Comment on above: Order Comment: 107.1 Performed By: #### L 501.8100, L500.4100, L100.0500 #### [facility] [address] [place], [address] Hematocrit (Bld) [Volume fraction] 41.7 % Normal 40-54 [facility] Comment on above: Order Comment: 107.1 Performed By: #### L 501.8100, L500.4100, L100.0500 #### [facility] [address] [place], [address] Hemoglobin (Bld) [Mass/Vol] 14.6 g/dL Normal 13.0-16.5 [facility] Comment on above: Order Comment: 107.1 Performed By: #### L 501.8100, L500.4100, L100.0500 #### [facility] [address] [place], [address] MCH (RBC) [Entitic mass] 32.4 pg High 27.0-32.0 [facility] Comment on above: Order Comment: 107.1 Performed By: #### L 501.8100, L500.4100, L100.0500 #### [facility] [address] [place], [address] MCHC (RBC) [Mass/Vol] 35.0 g/dL Normal 32-36 [facility] Comment on above: Order Comment: 107.1 Performed By: #### L 501.8100, L500.4100, L100.0500 #### [facility] [address] [place], [address] MCV (RBC) [Entitic vol] 92.7 fL Normal 80-94 [facility] Comment on above: Order Comment: 107.1 Performed By: #### L 501.8100, L500.4100, L100.0500 #### [facility] [address] [place], [address] Platelet mean volume (Bld) [Entitic vol] 11.3 fL Normal 6.2-12.0 [facility] Comment on above: Order Comment: 107.1 Performed By: #### L 501.8100, L500.4100, L100.0500 #### [facility] [address] [place], [address] Platelets (Bld) [#/Vol] 136 10*3/uL Low 150-450 [facility] Comment on above: Order Comment: 107.1 Performed By: #### L 501.8100, L500.4100, L100.0500 #### [facility] [address] [place], [address] RBC (Bld) [#/Vol] 4.50 10*6/uL Low 4.6-6.2 [facility] Comment on above: Order Comment: 107.1 Performed By: #### L 501.8100, L500.4100, L100.0500 #### [facility] [address] [place], [address] RDW SD 43.0 fl Normal 35.1-43.9 [facility] Comment on above: Order Comment: 107.1 Performed By: #### L 501.8100, L500.4100, L100.0500 #### [facility] [address] [place], [address] WBC (Bld) [#/Vol] 5.9 10*3/uL Normal 4.4-11.0 [facility] Comment on above: Order Comment: 107.1 Performed By: #### L 501.8100, L500.4100, L100.0500 #### [facility] [address] [place], [address] Carbon dioxide, total [Moles /volume] in Central venous bloodOrdered By: Demetrius Fenton on 07-22-2024 CO2 [Moles/Vol] 21.4 mmol/L 21.0-32.0 [facility] Chloride assayOrdered By: Travis Finch on 07-22-2024 Chloride [Moles/Vol] 97 mmol/L Low 98-108 [facility] Erythrocyte distribution wid th (RBC) [Ratio]Ordered By: Demetrius Fenton on 07-22-2024 Erythrocyte distribution width (RBC) [Entitic vol] 43.0 fL 35.1-43.9 [facility] Erythrocyte distribution wid th ratioOrdered By: Demetrius Fenton on 07-22-2024 Erythrocyte distribution width (RBC) [Ratio] 13.0 % 11.6-14.6 [facility] Erythrocyte distribution wid th standard deviationOrdered By: Demetrius Fenton on 07-22-2024 Erythrocyte distribution width (RBC) [Ratio] 43.0 fl 35.1-43.9 [facility] GFR/1.73 sq M.predicted gabino g non-blacks MDRD (S/P/Bld) [Vol rate/Area]Ordered By: Demetrius Fenton on 07-22-2024 Estimated GFR (MDRD) Non-Af Amer 69 >60 [facility] Comment on above: mL/min/1.73m2 CKD-EP I Creatinine Equation (2020) Glomerular filtration rate ( GFR) estimation/1.73 sq m using serum, plasma, or whole bOrdered By: Demetrius Fenton on 07-22-2024 GFR/1.73 sq M.predicted among non-blacks MDRD (S/P/Bld) [Vol rate/Area] 69 mL/min/{1.73_m2} >60 [facility] Comment on above: mL/min/1.73m2 CKD-EP I Creatinine Equation (2020) Hematocrit Auto (Bld) [Volum e fraction]Ordered By: Demetrius Fenton on 07-22-2024 Hematocrit (Bld) [Volume fraction] 41.7 % 40-54 [facility] Hemoglobin measurementOrdere d By: Demetrius Fenton on 07-22-2024 Hemoglobin (Bld) [Mass/Vol] 14.6 g/dL 13.0-16.5 [facility] MCV (mean corpuscular volume ) determinationOrdered By: Demetrius Fenton on 07-22-2024 MCV (RBC) [Entitic vol] 92.7 fL 80-94 [facility] Mean corpuscular hemoglobin (MCH) determinationOrdered By: Demetrius Fenton on 07-22-2024 MCH (RBC) [Entitic mass] 32.4 pg High 27.0-32.0 [facility] Mean corpuscular hemoglobin concentration (MCHC) determinationOrdered By: Demetrius Fenton on 07-22-2024 MCHC (RBC) [Mass/Vol] 35.0 g/dL 32-36 [facility] Mean platelet volume determi nationOrdered By: Demetrius Fenton on 07-22-2024 Platelet mean volume (Bld) [Entitic vol] 11.3 fL 6.2-12.0 [facility] Platelet countOrdered By: Travis Finch on 07-22-2024 Platelets (Bld) [#/Vol] 136 10*3/uL Low 150-450 [facility] Potassium (Unsp spec) [Mass/ Vol]Ordered By: Demetrius Fenton on 07-22-2024 Potassium [Moles/Vol] 4.4 mmol/L 3.3-5.1 [facility] Potassium measurement (mass/ volume)Ordered By: Demetrius Fenton on 07-22-2024 Potassium (Unsp spec) [Mass/Vol] 4.4 mmol/L 3.3-5.1 [facility] RBC Auto (Bld) [#/Vol]Ordere d By: Demetrius Fenton on 07-22-2024 RBC (Bld) [#/Vol] 4.50 10*6/uL Low 4.6-6.2 [facility] Serum creatinine measurement (mass/volume)Ordered By: Demetrius Fenton on 07-22-2024 Creatinine [Mass/Vol] 1.20 mg/dL 0.70-1.20 [facility] Serum glucose measurement (m ass/volume)Ordered By: Demetrius Fenton on 07-22-2024 Glucose [Mass/Vol] 184 mg/dL High 70-99 [facility] Serum or plasma calcium roseanne urement (mass/volume)Ordered By: Demetrius Fenton on 07-22-2024 Calcium [Mass/Vol] 9.1 mg/dL 7.6-11.0 [facility] Serum or plasma urea nitroge n measurement (mass/volume)Ordered By: Demetrius Fenton on 07-22-2024 Urea nitrogen [Mass/Vol] 13 mg/dL 4-19 [facility] Sodium levelOrdered By: Angel Fenton on 07-22-2024 Sodium [Moles/Vol] 132 mmol/L Low 133-145 [facility] White blood cell (WBC) count Ordered By: Demetrius Fenton on 07-22-2024 WBC (Bld) [#/Vol] 5.9 10*3/uL 4.4-11.0 [facility] CBC-Complete Blood Cnt No Di ffon 07-08-2024 Erythrocyte distribution width (RBC) [Ratio] 13.2 % Normal 11.6-14.6 [facility] Comment on above: Order Comment: 107-1 Performed By: #### L 100.0500, L501.8100 #### [facility] [address] [place], [address] Hematocrit (Bld) [Volume fraction] 45.3 % Normal 40-54 [facility] Comment on above: Order Comment: 107-1 Performed By: #### L 100.0500, L501.8100 #### [facility] [address] [facility] [place], [address] Hemoglobin (Bld) [Mass/Vol] 15.6 g/dL Normal 13.0-16.5 [facility] Comment on above: Order Comment: 107-1 Performed By: #### L 100.0500, L501.8100 #### [facility] [address] [place], [address] MCH (RBC) [Entitic mass] 32.0 pg Normal 27.0-32.0 [facility] Comment on above: Order Comment: 107-1 Performed By: #### L 100.0500, L501.8100 #### [facility] [address] [place], [address] MCHC (RBC) [Mass/Vol] 34.4 g/dL Normal 32-36 [facility] Comment on above: Order Comment: 107-1 Performed By: #### L 100.0500, L501.8100 #### [facility] [address] [place], [address] MCV (RBC) [Entitic vol] 93.0 fL Normal 80-94 [facility] Comment on above: Order Comment: 107-1 Performed By: #### L 100.0500, L501.8100 #### [facility] [address] [place], [address] Platelet mean volume (Bld) [Entitic vol] 10.6 fL Normal 6.2-12.0 [facility] Comment on above: Order Comment: 107-1 Performed By: #### L 100.0500, L501.8100 #### [facility] [address] [place], [address] Platelets (Bld) [#/Vol] 139 10*3/uL Low 150-450 [facility] Comment on above: Order Comment: 107-1 Performed By: #### L 100.0500, L501.8100 #### [facility] [address] [place], [address] RBC (Bld) [#/Vol] 4.87 10*6/uL Normal 4.6-6.2 [facility] Comment on above: Order Comment: 107-1 Performed By: #### L 100.0500, L501.8100 #### [facility] [address] [place], [address] RDW SD 44.1 fl High 35.1-43.9 [facility] Comment on above: Order Comment: 107-1 Performed By: #### L 100.0500, L501.8100 #### [facility] [address] [place], [address] WBC (Bld) [#/Vol] 7.9 10*3/uL Normal 4.4-11.0 [facility] Comment on above: Order Comment: 107-1 Performed By: #### L 100.0500, L501.8100 #### [facility] [address] [place], [address] CNOVon 07-08-2024 CNOV Office Visit ([facility] ) MOISES MADRID ([id number]) 1960 M Date Time Provider Department 07/08/24 12:00 PM CHHAYA SALDANA [facility] During your visit today, we recorded the [...] (sleep) - Aimovig 140 mg monthly - Wilmore 5 mg q8hrs PRN pain (takes around [...] mouth once (more content not included)... Normal [facility] Erythrocyte distribution wid th ratioOrdered By: Demetrius Fenton on 07-08-2024 Erythrocyte distribution width (RBC) [Ratio] 13.2 % 11.6-14.6 [facility] Erythrocyte distribution wid th standard deviationOrdered By: Demetrius Fenton on 07-08-2024 Erythrocyte distribution width (RBC) [Entitic vol] 44.1 fL High 35.1-43.9 [facility] Erythrocyte distribution width (RBC) [Ratio] 44.1 fl High 35.1-43.9 [facility] Hematocrit Auto (Bld) [Volum e fraction]Ordered By: Demetrius Fenton on 07-08-2024 Hematocrit (Bld) [Volume fraction] 45.3 % 40-54 [facility] Hemoglobin measurementOrdere d By: Demetrius Fenton on 07-08-2024 Hemoglobin (Bld) [Mass/Vol] 15.6 g/dL 13.0-16.5 [facility] MCV (mean corpuscular volume ) determinationOrdered By: Demetrius Fenton on 07-08-2024 MCV (RBC) [Entitic vol] 93.0 fL 80-94 [facility] Mean corpuscular hemoglobin (MCH) determinationOrdered By: Demetrius Fenton on 07-08-2024 MCH (RBC) [Entitic mass] 32.0 pg 27.0-32.0 [facility] Mean corpuscular hemoglobin concentration (MCHC) determinationOrdered By: Demetrius Fenton on 07-08-2024 MCHC (RBC) [Mass/Vol] 34.4 g/dL 32-36 [facility] Mean platelet volume determi nationOrdered By: Demetrius Fenton on 07-08-2024 Platelet mean volume (Bld) [Entitic vol] 10.6 fL 6.2-12.0 [facility] Platelet countOrdered By: Travis Finch on 07-08-2024 Platelets (Bld) [#/Vol] 139 10*3/uL Low 150-450 [facility] RBC Auto (Bld) [#/Vol]Ordere d By: Demetrius Fenton on 07-08-2024 RBC (Bld) [#/Vol] 4.87 10*6/uL 4.6-6.2 [facility] Serum or plasma valproate me asurement (mass/volume)Ordered By: Demetrius Fenton on 07-08-2024 Valproate [Mass/Vol] 43 ug/mL Low 50-100 [facility] Comment on above: Valproic Acid concen trations >100 ug/mL are potentially toxic. Valproate [Mass/Vol]Ordered By: Demetrius Fenton on 07-08-2024 Valproic Acid (Depakene) Level 43 ug/mL Low 50-100 [facility] Comment on above: Valproic Acid concen trations >100 ug/mL are potentially toxic. Valproic Acid (Depakene) Lev alison 07-08-2024 VALPROIC ACID 43 ug/mL Low 50-100 [facility] Comment on above: Order Comment: 107-1 Result Comment: Valp roic Acid concentrations >100 ug/mL are potentially toxic. Performed By: #### L 100.0500, L501.8100 #### [facility] [address] [facility] [facility] [place], [place], [id number] White blood cell (WBC) count Ordered By: Demetrius Fenton on 07-08-2024 WBC (Bld) [#/Vol] 7.9 10*3/uL 4.4-11.0 [facility] BUN/creatinine ratioOrdered By: Demetrius Fenton on 06-10-2024 Urea nitrogen/Creatinine [Mass ratio] 14.5 mg/mg 10-20 [facility] Basic Metabolic Profile (BMP )on 06-10-2024 Anion gap [Moles/Vol] 14 mmol/L Normal 5-15 [facility] Comment on above: Order Comment: 107.1 Performed By: #### L 501.8100, L500.4100, L100.0500 #### [facility] [address] [place], [address] BUN/CRE 14.5 RATIO Normal - [facility] Comment on above: Order Comment: 107.1 Performed By: #### L 501.8100, L500.4100, L100.0500 #### [facility] [address] [place], [address] Calcium [Mass/Vol] 9.5 mg/dL Normal 7.6-11.0 [facility] Comment on above: Order Comment: 107.1 Performed By: #### L 501.8100, L500.4100, L100.0500 #### [facility] [address] [place], [address] Chloride [Moles/Vol] 99 mmol/L Normal 96-108 [facility] Comment on above: Order Comment: 107.1 Performed By: #### L 501.8100, L500.4100, L100.0500 #### [facility] [address] [place], [address] CO2 [Moles/Vol] 24.0 mmol/L Normal 22.0-29.0 [facility] Comment on above: Order Comment: 107.1 Performed By: #### L 501.8100, L500.4100, L100.0500 #### [facility] [address] [place], [address] Creatinine [Mass/Vol] 1.20 mg/dL Normal 0.70-1.20 [facility] Comment on above: Order Comment: 107.1 Performed By: #### L 501.8100, L500.4100, L100.0500 #### [facility] [address] [place], [address] GFR/1.73 sq M.predicted among non-blacks MDRD (S/P/Bld) [Vol rate/Area] 69 mL/min/{1.73_m2} Normal >60 [facility] Comment on above: Order Comment: 107.1 Result Comment: mL/m in/1.73m2 CKD-EPI Creatinine Equation (2020) Performed By: #### L 501.8100, L500.4100, L100.0500 #### [facility] [address] [place], [address] Glucose [Mass/Vol] 107 mg/dL High 70-99 [facility] Comment on above: Order Comment: 107.1 Performed By: #### L 501.8100, L500.4100, L100.0500 #### [facility] [address] [place], [address] Potassium [Moles/Vol] 4.7 mmol/L Normal 3.3-5.1 [facility] Comment on above: Order Comment: 107.1 Result Comment: Hemo lysis present, Results??could be affected. ?? Performed By: #### L 501.8100, L500.4100, L100.0500 #### [facility] [address] [place], [address] Sodium [Moles/Vol] 137 mmol/L Normal 133-145 [facility] Comment on above: Order Comment: 107.1 Performed By: #### L 501.8100, L500.4100, L100.0500 #### [facility] [address] [place], [address] Urea nitrogen [Mass/Vol] 17 mg/dL Normal 4-19 [facility] Comment on above: Order Comment: 107.1 Performed By: #### L 501.8100, L500.4100, L100.0500 #### [facility] [address] [place], [address] CBC-Complete Blood Cnt No Di ffon 06-10-2024 Erythrocyte distribution width (RBC) [Ratio] 13.7 % Normal 11.6-14.6 [facility] Comment on above: Order Comment: 107.1 Performed By: #### L 501.8100, L500.4100, L100.0500 #### [facility] [address] [place], [address] Hematocrit (Bld) [Volume fraction] 44.8 % Normal 40-54 [facility] Comment on above: Order Comment: 107.1 Performed By: #### L 501.8100, L500.4100, L100.0500 #### [facility] [address] [place], [address] Hemoglobin (Bld) [Mass/Vol] 15.5 g/dL Normal 13.0-16.5 [facility] Comment on above: Order Comment: 107.1 Performed By: #### L 501.8100, L500.4100, L100.0500 #### [facility] [address] [place], [address] MCH (RBC) [Entitic mass] 31.9 pg Normal 27.0-32.0 [facility] Comment on above: Order Comment: 107.1 Performed By: #### L 501.8100, L500.4100, L100.0500 #### [facility] [address] [place], [address] MCHC (RBC) [Mass/Vol] 34.6 g/dL Normal 32-36 [facility] Comment on above: Order Comment: 107.1 Performed By: #### L 501.8100, L500.4100, L100.0500 #### [facility] [address] [place], [address] MCV (RBC) [Entitic vol] 92.2 fL Normal 80-94 [facility] Comment on above: Order Comment: 107.1 Performed By: #### L 501.8100, L500.4100, L100.0500 #### [facility] [address] [place], [address] Platelet mean volume (Bld) [Entitic vol] 11.5 fL Normal 6.2-12.0 [facility] Comment on above: Order Comment: 107.1 Performed By: #### L 501.8100, L500.4100, L100.0500 #### [facility] [address] [place], [address] Platelets (Bld) [#/Vol] 130 10*3/uL Low 150-450 [facility] Comment on above: Order Comment: 107.1 Performed By: #### L 501.8100, L500.4100, L100.0500 #### [facility] [address] [place], [address] RBC (Bld) [#/Vol] 4.86 10*6/uL Normal 4.6-6.2 [facility] Comment on above: Order Comment: 107.1 Performed By: #### L 501.8100, L500.4100, L100.0500 #### [facility] [address] [place], [address] RDW SD 45.3 fl High 35.1-43.9 [facility] Comment on above: Order Comment: 107.1 Performed By: #### L 501.8100, L500.4100, L100.0500 #### [facility] [address] [place], [address] WBC (Bld) [#/Vol] 7.7 10*3/uL Normal 4.4-11.0 [facility] Comment on above: Order Comment: 107.1 Performed By: #### L 501.8100, L500.4100, L100.0500 #### [facility] [address] [place], [address] Carbon dioxide measurementOr dered By: Demetrius Fenton on 06-10-2024 CO2 [Moles/Vol] 24.0 mmol/L 22.0-29.0 [facility] Chloride measurementOrdered By: Demetrius Fenton on 06-10-2024 Chloride [Moles/Vol] 99 mmol/L 96-108 [facility] Erythrocyte distribution wid th ratioOrdered By: Demetrius Fenton on 06-10-2024 Erythrocyte distribution width (RBC) [Ratio] 13.7 % 11.6-14.6 [facility] Erythrocyte distribution wid th standard deviationOrdered By: Demetrius Fenton on 06-10-2024 Erythrocyte distribution width (RBC) [Entitic vol] 45.3 fL High 35.1-43.9 [facility] Erythrocyte distribution width (RBC) [Ratio] 45.3 fl High 35.1-43.9 [facility] GFR/1.73 sq M.predicted gabino g non-blacks MDRD (S/P/Bld) [Vol rate/Area]Ordered By: Demetrius Fenton on 06-10-2024 Estimated GFR (MDRD) Non-Af Amer 69 >60 [facility] Comment on above: mL/min/1.73m2 CKD-EP I Creatinine Equation (2020) Glomerular filtration rate ( GFR) estimation/1.73 sq m using serum, plasma, or whole bOrdered By: Demetrius Fenton on 06-10-2024 GFR/1.73 sq M.predicted among non-blacks MDRD (S/P/Bld) [Vol rate/Area] 69 mL/min/{1.73_m2} >60 [facility] Comment on above: mL/min/1.73m2 CKD-EP I Creatinine Equation (2020) Hematocrit Auto (Bld) [Volum e fraction]Ordered By: Demetrius Fenton on 06-10-2024 Hematocrit (Bld) [Volume fraction] 44.8 % 40-54 [facility] Hemoglobin measurementOrdere d By: Demetrius Fenton on 06-10-2024 Hemoglobin (Bld) [Mass/Vol] 15.5 g/dL 13.0-16.5 [facility] MCV (mean corpuscular volume ) determinationOrdered By: Demetrius Fenton on 06-10-2024 MCV (RBC) [Entitic vol] 92.2 fL 80-94 [facility] Mean corpuscular hemoglobin (MCH) determinationOrdered By: Demetrius Fenton on 06-10-2024 MCH (RBC) [Entitic mass] 31.9 pg 27.0-32.0 [facility] Mean corpuscular hemoglobin concentration (MCHC) determinationOrdered By: Demetrius Fenton on 06-10-2024 MCHC (RBC) [Mass/Vol] 34.6 g/dL 32-36 [facility] Mean platelet volume determi nationOrdered By: Demetrius Fenton on 06-10-2024 Platelet mean volume (Bld) [Entitic vol] 11.5 fL 6.2-12.0 [facility] Platelet countOrdered By: Travis Finch on 06-10-2024 Platelets (Bld) [#/Vol] 130 10*3/uL Low 150-450 [facility] RBC Auto (Bld) [#/Vol]Ordere d By: Demetrius Fenton on 06-10-2024 RBC (Bld) [#/Vol] 4.86 10*6/uL 4.6-6.2 [facility] Serum creatinine measurement (mass/volume)Ordered By: Demetrius Fenton on 06-10-2024 Creatinine [Mass/Vol] 1.20 mg/dL 0.70-1.20 [facility] Serum glucose measurement (m ass/volume)Ordered By: Demetrius Fenton on 06-10-2024 Glucose [Mass/Vol] 107 mg/dL High 70-99 [facility] Serum or plasma anion gap de termination (moles/volume)Ordered By: Demetrius Fenton on 06-10-2024 Anion gap [Moles/Vol] 14 mmol/L 5-15 [facility] Serum or plasma calcium roseanne urement (mass/volume)Ordered By: Demetrius Fenton on 06-10-2024 Calcium [Mass/Vol] 9.5 mg/dL 7.6-11.0 [facility] Serum or plasma potassium me asurementOrdered By: Demetrius Fenton on 06-10-2024 Potassium [Moles/Vol] 4.7 mmol/L 3.3-5.1 [facility] Comment on above: Hemolysis present, R esults could be affected. Serum or plasma sodium measu rement (moles/volume)Ordered By: Demetrius Fenton on 06-10-2024 Sodium [Moles/Vol] 137 mmol/L 133-145 [facility] Serum or plasma urea nitroge n measurement (mass/volume)Ordered By: Demetrius Fenton on 06-10-2024 Urea nitrogen [Mass/Vol] 17 mg/dL 4-19 [facility] White blood cell (WBC) count Ordered By: Demetrius Fenton on 06-10-2024 WBC (Bld) [#/Vol] 7.7 10*3/uL 4.4-11.0 [facility] 37on 04-09-2024 37 Ordered treatment completed and patient is healed. Patient discharged without any issues. All questions answered. Call the clinic if your wound reopens or a new wound appears at [phone] [facility] Progress Noteon 04-09-2024 Progress Note Assessments Nursing [...] Test Results/Process Orders 10 [x] Staff telephones [facility], Nursing Homes/Clarify Orders 10 [] Routine Transfer [...] Points) Level 5 (160 or more Points) [facility] Progress Note Subjective Patient ID: Moises Madrid [...] on an as-needed basis at this time. [facility] 29on 03-27-2024 29 Encounter addended b y: Marycarmen Corona RN on: 03/28/2024 9:26 AM Actions taken: LDA properties accepted [facility] 37on 03-27-2024 37 Return Appointment i n: 1 week - Should you experience any significant changes in your wound(s) or have any questions regarding your home care instructions please contact the wound center at [phone] If after regular business hours, please call [...] help with wound healing Nursing Care Facility: [facility] Bilateral legs resolved-Facility closed week - Facility [...] and sacral area daily and PRN. Normal [facility] Progress Noteon 03-27-2024 Progress Note Assessments [...] Test Results/Process Orders 10 [] Staff telephones [facility], Nursing Homes/Clarify Orders 10 [x] Routine Transfer [...] Points) Level 5 (160 or more Points) [address] 03-20-2024 37 Return Appointment i n: 1 week - Should you experience any significant changes in your wound(s) or have any questions regarding your home care instructions please contact the wound center at [phone] If after regular business hours, please call [...] help with wound healing Nursing Care Facility: [facility] Wound Treatment to R 2nd toe- Daily [...] buttocks and sacral area daily and PRN. [address] 03-13-2024 37 Return Appointment i n: 1 week - Should you experience any significant changes in your wound(s) or have any questions regarding your home care instructions please contact the wound center at [phone] If after regular business hours, please call [...] help with wound healing Nursing Care Facility: [facility] Wound Treatment to R toes- [...] and sacral area daily and PRN. Normal [facility] Albumin to globulin ratioOrd ered By: Demetrius Fenton on 03-13-2024 Albumin/Globulin [Mass ratio] 1.1 {ratio} 0.9-2.4 [facility] Bilirubin, totalOrdered By: Demetrius Fenton on 03-13-2024 Bilirubin [Mass/Vol] 1.10 mg/dL High 0.20-1.00 [facility] Comment on above: For patients on eltr ombopag therapy, use of [place] TBIL is not recommended. Blood urea nitrogen (BUN)/cr eatinine ratioOrdered By: Demetrius Fenton on 03-13-2024 Urea nitrogen/Creatinine [Mass ratio] 16.0 mg/mg 10-20 [facility] CBC-Complete Blood Cnt No Di ffon 03-13-2024 Erythrocyte distribution width (RBC) [Ratio] 13.2 % Normal 11.6-14.6 [facility] Comment on above: Performed By: #### L 501.9985, L500.4100, L100.0500, L500.4050 #### [facility] [address] [place], [address] Hematocrit (Bld) [Volume fraction] 44.4 % Normal 40-54 [facility] Comment on above: Performed By: #### L 501.9985, L500.4100, L100.0500, L500.4050 #### [facility] [address] [place], [address] Hemoglobin (Bld) [Mass/Vol] 15.2 g/dL Normal 13.0-16.5 [facility] Comment on above: Performed By: #### L [id number], L500.4100, L100.0500, L500.4050 #### [facility] [address] [place], [address] MCH (RBC) [Entitic mass] 31.0 pg Normal 27.0-32.0 [facility] Comment on above: Performed By: #### L 501.9985, L500.4100, L100.0500, L500.4050 #### [facility] [address] [place], [address] MCHC (RBC) [Mass/Vol] 34.2 g/dL Normal 32-36 [facility] Comment on above: Performed By: #### L 501.9985, L500.4100, L100.0500, L500.4050 #### [facility] [address] [place], [address] MCV (RBC) [Entitic vol] 90.4 fL Normal 80-94 [facility] Comment on above: Performed By: #### L 501.9985, L500.4100, L100.0500, L500.4050 #### [facility] [address] [place], [address] Platelet mean volume (Bld) [Entitic vol] 10.8 fL Normal 6.2-12.0 [facility] Comment on above: Performed By: #### L 501.9985, L500.4100, L100.0500, L500.4050 #### [facility] [address] [place], [address] Platelets (Bld) [#/Vol] 149 10*3/uL Low 150-450 [facility] Comment on above: Performed By: #### L 501.9985, L500.4100, L100.0500, L500.4050 #### [facility] [address] [place], [address] RBC (Bld) [#/Vol] 4.91 10*6/uL Normal 4.6-6.2 [facility] Comment on above: Performed By: #### L 501.9985, L500.4100, L100.0500, L500.4050 #### [facility] [address] [place], [address] RDW SD 42.7 fl Normal 35.1-43.9 [facility] Comment on above: Performed By: #### L 501.9985, L500.4100, L100.0500, L500.4050 #### [facility] [address] [place], [address] WBC (Bld) [#/Vol] 8.1 10*3/uL Normal 4.4-11.0 [facility] Comment on above: Performed By: #### L 501.9985, L500.4100, L100.0500, L500.4050 #### [facility] [address] [place], [address] Carbon dioxide measurementOr dered By: Demetrius Fenton on 03-13-2024 CO2 [Moles/Vol] 26.0 mmol/L 21.0-32.0 [facility] Chloride measurementOrdered By: Demetrius Fenton on 03-13-2024 Chloride [Moles/Vol] 104 mmol/L 98-107 [facility] Comprehensive Metabolic Prof ilon 03-13-2024 Albumin [Mass/Vol] 3.5 g/dL Normal 3.2-5.0 [facility] Comment on above: Performed By: #### L 501.9985, L500.4100, L100.0500, L500.4050 #### [facility] [address] [place], [address] Albumin/Globulin [Mass ratio] 1.1 {ratio} Normal 0.9-2.4 [facility] Comment on above: Performed By: #### L 501.9985, L500.4100, L100.0500, L500.4050 #### [facility] [address] [place], [address] ALK P 65 U/L Normal 45-117 [facility] Comment on above: Performed By: #### L 501.9985, L500.4100, L100.0500, L500.4050 #### [facility] [address] [place], [address] ALT [Catalytic activity/Vol] 53 U/L Normal 16-61 [facility] Comment on above: Performed By: #### L 501.9985, L500.4100, L100.0500, L500.4050 #### [facility] [address] [place], [address] AST [Catalytic activity/Vol] 37 U/L Normal 15-37 [facility] Comment on above: Result Comment: Slig ht Hemolysis, Result may be falsely increased. Performed By: #### L 501.9985, L500.4100, L100.0500, L500.4050 #### [facility] [address] [place], [address] Bilirubin [Mass/Vol] 1.10 mg/dL High 0.20-1.00 [facility] Comment on above: Result Comment: For patients on eltrombopag therapy, use of [place] TBIL is not recommended. Performed By: #### L 501.9985, L500.4100, L100.0500, L500.4050 #### [facility] [address] [place], [address] BUN/CRE 16.0 RATIO Normal 10-20 [facility] Comment on above: Performed By: #### L 501.9985, L500.4100, L100.0500, L500.4050 #### [facility] [address] [place], [address] CA,Total 9.1 mg/dL Normal 8.5-10.1 [facility] Comment on above: Performed By: #### L 501.9985, L500.4100, L100.0500, L500.4050 #### [facility] [address] [place], [address] Chloride [Moles/Vol] 104 mmol/L Normal 98-107 [facility] Comment on above: Performed By: #### L 501.9985, L500.4100, L100.0500, L500.4050 #### [facility] [address] [place], [address] CO2 [Moles/Vol] 26.0 mmol/L Normal 21.0-32.0 [facility] Comment on above: Performed By: #### L 501.9985, L500.4100, L100.0500, L500.4050 #### [facility] [address] [place], [address] Creatinine [Mass/Vol] 1.06 mg/dL Normal 0.70-1.30 [facility] Comment on above: Result Comment: The validity of the calculated GFR GFRAA in patients over 70 years has not been determined. Clinical correlation is essential. Performed By: #### L 501.9985, L500.4100, L100.0500, L500.4050 #### [facility] [address] [place], [address] EST GFR - AA 91 mL/min Normal >60 [facility] Comment on above: Result Comment: Afri can Mont[place] GFR Calc Performed By: #### L 501.9985, L500.4100, L100.0500, L500.4050 #### [facility] [address] [place], [address] GAP 7 Normal 5-15 [facility] Comment on above: Performed By: #### L 501.9985, L500.4100, L100.0500, L500.4050 #### [facility] [address] [place], [address] GFR/1.73 sq M.predicted among non-blacks MDRD (S/P/Bld) [Vol rate/Area] 75 mL/min/{1.73_m2} Normal >60 [facility] Comment on above: Result Comment: Non- GFR Calc Performed By: #### L 501.9985, L500.4100, L100.0500, L500.4050 #### [facility] [address] [place], [address] Globulin (S) [Mass/Vol] 3.2 g/dL Normal 2.2-4.2 [facility] Comment on above: Performed By: #### L 501.9985, L500.4100, L100.0500, L500.4050 #### [facility] [address] [place], [address] Glucose [Mass/Vol] 107 mg/dL High 74-106 [facility] Comment on above: Result Comment: Fast ing Glucose result from 100 to 125 mg/dL suggests IMPAIRED HOMEOSTASIS per A.D.A. criteria. Performed By: #### L 501.9985, L500.4100, L100.0500, L500.4050 #### [facility] [address] [place], [address] Potassium [Moles/Vol] 4.7 mmol/L Normal 3.5-5.1 [facility] Comment on above: Result Comment: Slig ht Hemolysis, Result may be falsely increased. Performed By: #### L 501.9985, L500.4100, L100.0500, L500.4050 #### [facility] [address] [place], [address] Sodium [Moles/Vol] 137 mmol/L Normal 136-145 [facility] Comment on above: Performed By: #### L 501.9985, L500.4100, L100.0500, L500.4050 #### [facility] [address] [place], [address] T PROT 6.7 g/dL Normal 6.4-8.2 [facility] Comment on above: Performed By: #### L 501.9985, L500.4100, L100.0500, L500.4050 #### [facility] [address] [place], [address] Urea nitrogen [Mass/Vol] 17 mg/dL Normal 7-18 [facility] Comment on above: Performed By: #### L 501.9985, L500.4100, L100.0500, L500.4050 #### [facility] [address] [place], [address] Erythrocyte distribution wid th ratioOrdered By: Demetrius Fenton on 03-13-2024 Erythrocyte distribution width (RBC) [Ratio] 13.2 % 11.6-14.6 [facility] Erythrocyte distribution wid th standard deviationOrdered By: Demetrius Fenton on 03-13-2024 Erythrocyte distribution width (RBC) [Entitic vol] 42.7 fL 35.1-43.9 [facility] Estimated glomerular filtrat ion rate (GFR) AmericanOrdered By: Demetrius Fenton on 03-13-2024 Estimated GFR (MDRD) Amer 91 mL/min >60 [facility] Comment on above: GFR Calc Glomerular filtration rate ( GFR) estimationOrdered By: Demetrius Fenton on 03-13-2024 Estimated GFR (MDRD) Non-Af Amer 75 mL/min >60 [facility] Comment on above: Non- GFR Calc Glucose measurementOrdered B y: Demetrius Fenton on 03-13-2024 Glucose [Mass/Vol] 107 mg/dL High 74-106 [facility] Comment on above: Fasting Glucose resu lt from 100 to 125 mg/dL suggests IMPAIRED HOMEOSTASIS per A.D.A. criteria. Hematocrit Auto (Bld) [Volum e fraction]Ordered By: Demetrius Fenton on 03-13-2024 Hematocrit (Bld) [Volume fraction] 44.4 % 40-54 [facility] Hemoglobin A1con 03-13-2024 HbA1c (Bld) [Mass fraction] 6.2 % High 3.8-5.6 [facility] Comment on above: Result Comment: Norm al < 5.7 % Prediabetic 5.7 - 6.4 % Diabetic >or= 6.5 % Please note range changes. Performed By: #### L 501.9985, L500.4100, L100.0500, L500.4050 #### [facility] [place], [address] Hemoglobin A1c percentageOrd ered By: Demetrius Fenton on 03-13-2024 HbA1c (Bld) [Mass fraction] 6.2 % High 3.8-5.6 [facility] Comment on above: Normal < 5.7 % Predi abetic 5.7 - 6.4 % Diabetic >or= 6.5 % Please note range changes. Hemoglobin measurementOrdere d By: Demetrius Fenton on 03-13-2024 Hemoglobin (Bld) [Mass/Vol] 15.2 g/dL 13.0-16.5 [facility] High density lipoprotein (HD L) measurementOrdered By: Demetrius Fenton on 03-13-2024 Cholesterol in HDL [Mass/Vol] 41 mg/dL >40 [facility] Comment on above: The drugs N-Acetylcy steine and Metamizole may falsely depress this assay. Reference Range HDL <40 mg/dL Low HDL Cholesterol HDL >or= 60 mg/dL High HDL Cholesterol Laboratory - Chemistry and C hemistry - challengeOrdered By: Demetrius Fenton on 03-13-2024 AST [Catalytic activity/Vol] 37 U/L 15-37 [facility] Comment on above: Slight Hemolysis, Re sult may be falsely increased. Lipid Profileon 03-13-2024 Cholesterol [Mass/Vol] 112 mg/dL Normal 200 [facility] Comment on above: Result Comment: <200 mg/dL Desirable 200-240 mg/dL Borderline >240 mg/dL High Risk Performed By: #### L 501.9985, L500.4100, L100.0500, L500.4050 #### [facility] [address] [place], [address] Cholesterol in HDL [Mass/Vol] 41 mg/dL Normal [facility] Comment on above: Result Comment: The drugs N-Acetylcysteine and Metamizole may falsely depress this assay. Reference Range HDL <40 mg/dL Low HDL Cholesterol HDL >or= 60 mg/dL High HDL Cholesterol Performed By: #### L 501.9985, L500.4100, L100.0500, L500.4050 #### [facility] [address] [place], [address] Cholesterol in LDL [Mass/Vol] 51 mg/dL Normal 0-130 [facility] Comment on above: Performed By: #### L [id number], L500.4100, L100.0500, L500.4050 #### [facility] [address] [place], [address] Cholesterol in VLDL [Mass/Vol] 20 mg/dL Normal 5-40 [facility] Comment on above: Performed By: #### L 501.9985, L500.4100, L100.0500, L500.4050 #### [facility] [address] [place], [address] Triglyceride [Mass/Vol] 101 mg/dL Normal [facility] Comment on above: Result Comment: The drugs N-Acetylcysteine and Metamizole may falsely depress this assay. Serum Triglycerides Reference Interval Normal <150 mg/dL Borderline high 150 - 199 mg/dL High 200 - 499 mg/dL Very High > or = 500 mg/dL Performed By: #### L [id number], L500.4100, L100.0500, L500.4050 #### [facility] [place], [address] Low density lipoprotein (LDL ) cholesterol measurementOrdered By: Demetrius Fenton on 03-13-2024 Cholesterol in LDL [Mass/Vol] 51 mg/dL 0-130 [facility] MCV (mean corpuscular volume ) determinationOrdered By: Demetrius Fenton on 03-13-2024 MCV (RBC) [Entitic vol] 90.4 fL 80-94 [facility] Mean corpuscular hemoglobin (MCH) determinationOrdered By: Demetrius Fenton on 03-13-2024 MCH (RBC) [Entitic mass] 31.0 pg 27.0-32.0 [facility] Mean corpuscular hemoglobin concentration (MCHC) determinationOrdered By: Demetrius Fenton on 03-13-2024 MCHC (RBC) [Mass/Vol] 34.2 g/dL 32-36 [facility] Mean platelet volume determi nationOrdered By: Demetrius Fenton on 03-13-2024 Platelet mean volume (Bld) [Entitic vol] 10.8 fL 6.2-12.0 [facility] Platelet countOrdered By: Travis Finch on 03-13-2024 Platelets (Bld) [#/Vol] 149 10*3/uL Low 150-450 [facility] Potassium measurementOrdered By: Demetrius Fenton on 03-13-2024 Potassium [Moles/Vol] 4.7 mmol/L 3.5-5.1 [facility] Comment on above: Slight Hemolysis, Re sult may be falsely increased. RBC Auto (Bld) [#/Vol]Ordere d By: Demetrius Fenton on 03-13-2024 RBC (Bld) [#/Vol] 4.91 10*6/uL 4.6-6.2 [facility] Serum anion gap measurementO rdered By: Demetrius Fenton on 03-13-2024 Anion gap [Moles/Vol] 7 mmol/L 5-15 [facility] Serum globulin measurementOr dered By: Demetrius Fenton on 03-13-2024 Globulin (S) [Mass/Vol] 3.2 g/dL 2.2-4.2 [facility] Serum or plasma alanine joy otransferase (ALT) measurementOrdered By: Demetrius Fenton on 03-13-2024 ALT [Catalytic activity/Vol] 53 U/L 16-61 [facility] Serum or plasma albumin roseanne urement (mass/volume)Ordered By: Demetrius Fenton on 03-13-2024 Albumin [Mass/Vol] 3.5 g/dL 3.2-5.0 [facility] Serum or plasma alkaline elsie sphatase measurementOrdered By: Demetrius Fenton on 03-13-2024 ALP [Catalytic activity/Vol] 65 U/L 45-117 [facility] Serum or plasma calcium roseanne urement (mass/volume)Ordered By: Demetrius Fenton on 03-13-2024 Calcium [Mass/Vol] 9.1 mg/dL 8.5-10.1 [facility] Serum or plasma cholesterol measurement (mass/volume)Ordered By: Demetrius Fenton on 03-13-2024 Cholesterol [Mass/Vol] 112 mg/dL <200 [facility] Comment on above: <200 mg/dL Desirable 200-240 mg/dL Borderline >240 mg/dL High Risk Serum or plasma creatinine m easurement (mass/volume)Ordered By: Demetrius Fenton on 03-13-2024 Creatinine [Mass/Vol] 1.06 mg/dL 0.70-1.30 [facility] Comment on above: The validity of the calculated GFR & GFRAA in patients over 70 years has not been determined. Clinical correlation is essential. Serum or plasma urea nitroge n measurement (mass/volume)Ordered By: Demetrius Fenton on 03-13-2024 Urea nitrogen [Mass/Vol] 17 mg/dL 7-18 [facility] Sodium levelOrdered By: Angel Fenton on 03-13-2024 Sodium [Moles/Vol] 137 mmol/L 136-145 [facility] Total proteinOrdered By: Miriam Fenton on 03-13-2024 Protein [Mass/Vol] 6.7 g/dL 6.4-8.2 [facility] Triglycerides measurementOrd ered By: Demetrius Fenton on 03-13-2024 Triglyceride [Mass/Vol] 101 mg/dL <199 [facility] Comment on above: The drugs N-Acetylcy steine and Metamizole may falsely depress this assay.Serum Triglycerides Reference Interval Normal <150 mg/dL Borderline high 150 - 199 mg/dL High 200 - 499 mg/dL Very High > or = 500 mg/dL Very low density lipoprotein (VLDL) cholesterol measurementOrdered By: Demetrius Fenton on 03-13-2024 VLDL Cholesterol 20 mg/dL 5-40 [facility] White blood cell (WBC) count Ordered By: Demetrius Fenton on 03-13-2024 WBC (Bld) [#/Vol] 8.1 10*3/uL 4.4-11.0 [facility] 37on 03-06-2024 37 Return Appointment i n: 1 week - Should you experience any significant changes in your wound(s) or have any questions regarding your home care instructions please contact the wound center at [phone] If after regular business hours, please call [...] help with wound healing Nursing Care Facility: [facility] Wound Treatment to R toes- [...] buttocks and sacral area daily and PRN. [facility] 37on 02-28-2024 37 Return Appointment i n: 1 week - Should you experience any significant changes in your wound(s) or have any questions regarding your home care instructions please contact the wound center at [phone] If after regular business hours, please call [...] lite applied for prevention. Nursing Care Facility: [facility] Wound Treatment to R toes- [...] buttocks and sacral area daily and PRN. [facility] No Panel Informationon 02-27 Julissa Taylro DO 02/28/2024 1:11 PM Debridement Wound/Incision 02/21/24 Venous Ulcer Pretibial Left Performed by: Julissa Taylor DO Authorized by: Julissa Taylor, DO Consent Consent obtained? verbal Consent given by: patient Risks discussed? procedural risks discussed Immediately prior to the procedure a time out was called and the performing provider verified the correct patient, procedure, equipment, passport support associate, and site/side marked as required. Debridement Details [...] Response to treatment: procedure was tolerated well [facility] Graph Story [facility] 37on 02-21-2024 37 Return Appointment i n: 1 week - Should you experience any significant changes in your wound(s) or have any questions regarding your home care instructions please contact the wound center at [phone] If after regular business hours, please call [...] lite applied for prevention. Nursing Care Facility: [facility] Wound Treatment to R toes- [...] and sacral area daily and PRN. Normal [facility] CBC W Auto Differential pane l (Bld)on 02-18-2024 Basophils (Bld) [#/Vol] 0.1 10*3/uL 0.0 - 0.2 10*3/uL [facility] Graph Story Basophils/100 WBC (Bld) 0.8 % 0.0 - 2.0 % [facility] Eosinophils (Bld) [#/Vol] 0.2 10*3/uL 0.0 - 0.5 10*3/uL [facility] Eosinophils/100 WBC (Bld) 2.8 % 0.0 - 6.0 % [facility] Erythrocyte distribution width (RBC) [Ratio] 13.2 % 11.5 - 15.0 % [facility] Hematocrit (Bld) [Volume fraction] 49.2 % 40.0 - 52.0 % [facility] Hemoglobin (Bld) [Mass/Vol] 16.9 g/dL 13.0 - 18.0 g/dL [facility] Immature granulocytes (Bld) [#/Vol] 0.1 10*3/uL High NINF - 0.1 10*3/uL [facility] Immature granulocytes/100 WBC (Bld) 0.6 % 0.0 - 2.0 % [facility] Interpretation and review of laboratory results Abnormal [facility] IPF 4 [facility] Lymphocytes (Bld) [#/Vol] 2.7 10*3/uL 1.0 - 4.3 10*3/uL [facility] Lymphocytes/100 WBC (Bld) 35 % 15.0 - 45.0 % [facility] MCH (RBC) [Entitic mass] 31 pg 26.0 - 34.0 pg [facility] MCHC (RBC) [Mass/Vol] 34.3 % 30.5 - 36.0 % [facility] MCV (RBC) [Entitic vol] 90.1 fL 77.0 - 99.0 fL [facility] Monocytes (Bld) [#/Vol] 0.6 10*3/uL 0.0 - 0.9 10*3/uL [facility] Monocytes/100 WBC (Bld) 7.6 % 5.0 - 13.0 % [facility] Neutrophils (Bld) [#/Vol] 4.1 10*3/uL 1.8 - 7.5 10*3/uL [facility] Neutrophils/100 WBC (Bld) 53.2 % 38.0 - 82.0 % [facility] Nucleated RBC/100 WBC (Bld) [Ratio] 0 % [facility] Platelet mean volume (Bld) [Entitic vol] 10.9 fL 9.0 - 12.7 fL [facility] Platelets (Bld) [#/Vol] 133 10*3/uL Low 140 - 440 10*3/uL [facility] RBC (Bld) [#/Vol] 5.46 10*6/uL 4.40 - 5.9 0 10*6/uL [facility] WBC (Bld) [#/Vol] 7.8 10*3/uL 3.6 - 10.7 10*3/uL [facility] CBC WITH AUTO DIFFERENTIALon 11-10-2024 Basophils (Bld) [#/Vol] 0.1 10*3/uL Normal 0.0-0.2 [facility] Comment on above: Performed By: #### L [id number] #### Tafe Lecturer: SHARLA FINNEY ([phone]) [facility]) [address] [place] [address] Basophils/100 WBC (Bld) 0.8 % Normal 0.0-2.0 [facility] Comment on above: Performed By: #### L [id number] #### Tafe Lecturer: SHARLA FINNEY ([phone]) [facility]) [address] [place] [address] Eosinophils (Bld) [#/Vol] 0.2 10*3/uL Normal 0.0-0.5 [facility] Comment on above: Performed By: #### L [id number] #### Tafe Lecturer: SHARLA FINNEY ([id number]) [facility] ([facility]) [address] [place] [address] Eosinophils/100 WBC (Bld) 2.8 % Normal 0.0-6.0 [facility] Comment on above: Performed By: #### L [id number] #### Tafe Lecturer: SHARLA FINNEY ([phone]) [facility]) [address] [place] [address] Erythrocyte distribution width (RBC) [Ratio] 13.2 % Normal 11.5-15.0 [facility] Comment on above: Performed By: #### L [id number] #### Tafe Lecturer: SHARLA FINNEY ([phone]) [facility] ([facility]) [address] [place] [address] Hematocrit (Bld) [Volume fraction] 49.2 % Normal 40.0-52.0 [facility] Comment on above: Performed By: #### L [id number] #### Tafe Lecturer: SHARLA FINNEY ([id number]) [facility] ([facility]) [address] [place] [address] Hemoglobin (Bld) [Mass/Vol] 16.9 g/dL Normal 13.0-18.0 [facility] Comment on above: Performed By: #### L [id number] #### Tafe Lecturer: SHARLA FINNEY ([phone]) [facility]) [address] [place] [address] IMMATURE GRANS % 0.6 % Normal 0.0-2.0 [facility] Comment on above: Performed By: #### L [id number] #### Tafe Lecturer: SHARLA FINNEY ([phone]) [facility]) [address] [place] [address] IMMATURE GRANS ABSOLUTE 0.1 10*3/uL High <0.1 [facility] Comment on above: Performed By: #### L [id number] #### Tafe Lecturer: SHARLA FINNEY ([id number]) [facility]) [address] [place] [address] IPF 4 Normal [facility] Comment on above: Performed By: #### L [id number] #### Tafe Lecturer: SHARLA FINNEY ([id number]) [facility]) [address] [place] [address] Lymphocytes (Bld) [#/Vol] 2.7 10*3/uL Normal 1.0-4.3 [facility] Comment on above: Performed By: #### L [id number] #### Tafe Lecturer: SHARLA FINNEY ([id number]) [facility]) [address] [place] [address] Lymphocytes/100 WBC (Bld) 35.0 % Normal 15.0-45.0 [facility] Comment on above: Performed By: #### L [id number] #### Tafe Lecturer: SHARLA FINNEY ([id number]) [facility]) [address] [place] [address] MCH (RBC) [Entitic mass] 31.0 pg Normal 26.0-34.0 [facility] Comment on above: Performed By: #### L [id number] #### Tafe Lecturer: SHARLA FINNEY ([id number]) [facility]) [address] [place] [address] MCHC 34.3 % Normal 30.5-36.0 [facility] Comment on above: Performed By: #### L [id number] #### Tafe Lecturer: SHARLA FINNEY ([id number]) [facility] ([facility]) [address] [place] [address] MCV (RBC) [Entitic vol] 90.1 fL Normal 77.0-99.0 [facility] Comment on above: Performed By: #### L [id number] #### Tafe Lecturer: SHARLA FINNEY ([id number]) [facility] ([facility]) [address] [place] [address] Monocytes (Bld) [#/Vol] 0.6 10*3/uL Normal 0.0-0.9 [facility] Comment on above: Performed By: #### L [id number] #### Tafe Lecturer: SHARLA FINNEY ([id number]) [facility] ([facility]) [address] [place] [address] Monocytes/100 WBC (Bld) 7.6 % Normal 5.0-13.0 [facility] Comment on above: Performed By: #### L [id number] #### Tafe Lecturer: SHARLA FINNEY ([id number]) [facility] ([facility]) [address] [place] [address] NEUTROPHILS ABSOLUTE 4.1 10*3/uL Normal 1.8-7.5 [facility] Comment on above: Performed By: #### L [id number] #### Tafe Lecturer: SHARLA FINNEY ([id number]) [facility] ([facility]) [address] [place] [address] Neutrophils/100 WBC (Bld) 53.2 % Normal 38.0-82.0 [facility] Comment on above: Performed By: #### L [id number] #### Tafe Lecturer: SHARLA FINNEY ([id number]) [facility] ([facility]) [address] [place] [address] NRBC 0.0 /100 WBCs Normal 0.0-2.0 [facility] Comment on above: Performed By: #### L [id number] #### Tafe Lecturer: SHARLA FINNEY ([phone]) [facility] ([facility]) [address] [place] [address] Platelet mean volume (Bld) [Entitic vol] 10.9 fL Normal 9.0-12.7 [facility] Comment on above: Performed By: #### L [id number] #### Tafe Lecturer: SHARLA FINNEY ([id number]) [facility] ([facility]) [address] [place] [address] Platelets (Bld) [#/Vol] 133 10*3/uL Low 140-440 [facility] Comment on above: Performed By: #### L [id number] #### Tafe Lecturer: SHARLA FINNEY ([id number]) [facility] ([facility]) [address] [place] [address] RBC (Bld) [#/Vol] 5.46 10*6/uL Normal 4.40-5.90 [facility] Comment on above: Performed By: #### L [id number] #### Tafe Lecturer: SHARLA FINNEY ([id number]) [facility] ([facility]) [address] [place] [address] WBC (Bld) [#/Vol] 7.8 10*3/uL Normal 3.6-10.7 [facility] Comment on above: Performed By: #### L [id number] #### Tafe Lecturer: SHARLA FINNEY ([id number]) [facility] ([facility]) [address] [place] [address] COMPREHENSIVE METABOLIC PANE Micah 02-18-2024 Albumin [Mass/Vol] 4.7 g/dL Normal 3.5-5.0 [facility] Comment on above: Performed By: #### L [id number] #### Tafe Lecturer: SHARLA FINNEY ([id number]) [facility]) [address] [place] [address] ALP [Catalytic activity/Vol] 68 U/L Normal 38-126 [facility] Comment on above: Performed By: #### L [id number] #### Tafe Lecturer: SHARLA FINNEY ([id number]) [facility] [address] [place] [address] [place] ALT [Catalytic activity/Vol] 52 U/L High 0-49 [facility] Comment on above: Performed By: #### L [id number] #### Tafe Lecturer: SHARLA FINNEY ([id number]) [facility] [address] [place] [address] [place] Anion gap [Moles/Vol] 6 mmol/L Normal 3-13 [facility] Comment on above: Performed By: #### L [id number] #### Tafe Lecturer: SHARLA FINNEY ([id number]) [facility] [address] [place] [address] [place] AST [Catalytic activity/Vol] 48 U/L High 15-46 [facility] Comment on above: Performed By: #### L [id number] #### Tafe Lecturer: SHARLA FINNEY ([id number]) [facility] [address] [place] [address] [place] Bilirubin [Mass/Vol] 1.4 mg/dL High 0.2-1.3 [facility] Comment on above: Performed By: #### L [id number] #### Tafe Lecturer: SHARLA FINNEY ([id number]) [facility] [address] [place] [address] Calcium [Mass/Vol] 9.6 mg/dL Normal 8.4-10.4 [facility] Comment on above: Performed By: #### L [id number] #### Tafe Lecturer: SHARLA FINNEY ([id number]) [facility] [address] [place] [address] [place] Chloride [Moles/Vol] 100 mmol/L Normal 98-107 [facility] Comment on above: Performed By: #### L [id number] #### Tafe Lecturer: SHARLA FINNEY ([id number]) [facility] [address] [place] [address] [place] CO2 [Moles/Vol] 30 mmol/L Normal 22-30 [facility] Comment on above: Performed By: #### L [id number] #### Tafe Lecturer: SHARLA FINNEY ([id number]) [facility]) [address] [place] [address] Creatinine [Mass/Vol] 0.99 mg/dL Normal 0.66-1.25 [facility] Comment on above: Performed By: #### L [id number] #### Tafe Lecturer: SHARLA FINNEY ([id number]) [facility]) [address] [place] [address] GLOMERULAR FILTRATION RATE ML/MIN/1.73 SQ M.PREDICTED 86.7 mL/min/1.73m*2 Normal >60.0 [facility] Comment on above: Result Comment: Calc ulation based on the Chronic Kidney Disease Epidemiology Collaboration (CKD-EPI) equation refit without adjustment for race Performed By: #### L [id number] #### Tafe Lecturer: SHARLA FINNEY ([id number]) [facility]) [address] [place] [address] Glucose [Mass/Vol] 104 mg/dL High 70-100 [facility] Comment on above: Performed By: #### L [id number] #### Tafe Lecturer: SHARLA FINNEY ([id number]) [facility]) [address] [place] [address] Potassium [Moles/Vol] 4.5 mmol/L Normal 3.5-5.1 [facility] Comment on above: Performed By: #### L [id number] #### Tafe Lecturer: SHARLA FINNEY ([id number]) [facility]) [address] [place] [address] Protein [Mass/Vol] 8.0 g/dL Normal 6.3-8.2 [facility] Comment on above: Performed By: #### L [id number] #### Tafe Lecturer: SHARLA FINNEY ([id number]) [facility]) [address] [place] [address] Sodium [Moles/Vol] 135 mmol/L Normal 135-145 [facility] Comment on above: Performed By: #### L [id number] #### Tafe Lecturer: SHARLA FINNEY ([id number]) [facility] [address] [place] [address] Urea nitrogen [Mass/Vol] 18 mg/dL Normal 9-20 [facility] Comment on above: Performed By: #### L [id number] #### Tafe Lecturer: SHARLA FINNEY ([id number]) [facility] [address] [place] [address] CT HEAD WO IV CONTRASTon CT HEAD [...] to year, oriented to month, according to senior care he received norco and tylenol w no relief, per [facility] states he has constant headache Normal [facility] CT Head WO contraston 2023 No acute intracrania l hemorrhage or territorial infarct. Findings suggestive of acute and chronic paranasal sinusitis. Report Dictated on Electronically Signed By: Jus Barlow DR Electronically Signed Date/Time: 02/18/2024 1:49 AM EST [facility] Patient Name: MOISES VERONICA : 1960 Exam [...] frontal sinus and left ethmoid air cells. [facility] Jus Barlow MD - 02/18/2024 Patient Name: [...] Electronically Signed Date/Time: 02/18/2024 1:49 AM EST [facility] Radiology Study observation (narrative) [facility] alth CT Head WO contrastOrdered B y: Jus Barlow on 02-18-2024 [facility] Graph Story Work Phone: Comprehensive metabolic 1998 panelon 02-18-2024 Albumin [Mass/Vol] 4.7 g/dL 3.5 - 5.0 g/dL [facility] ALP [Catalytic activity/Vol] 68 U/L 38 - 126 U/L [facility] ALT [Catalytic activity/Vol] 52 U/L High 0 - 49 U/L [facility] Anion gap [Moles/Vol] 6 mmol/L 3 - 13 mmol/L [facility] AST [Catalytic activity/Vol] 48 U/L High 15 - 46 U/L [facility] Bilirubin [Mass/Vol] 1.4 mg/dL High 0.2 - 1 .3 mg/dL [facility] Calcium [Mass/Vol] 9.6 mg/dL 8.4 - 10. 4 mg/dL [facility] Chloride [Moles/Vol] 100 mmol/L 98 - 10 7 mmol/L [facility] CO2 [Moles/Vol] 30 mmol/L 22 - 30 mmol/L [facility] Creatinine [Mass/Vol] 0.99 mg/dL 0.66 - 1.25 mg/dL [facility] GFR/1.73 sq M.predicted (S/P/Bld) [Vol rate/Area] 86.7 mL/min - PINF [facility] Comment on above: Calculation based on the Chronic Kidney Disease Epidemiology Collaboration (CKD-EPI) equation refit without adjustment for race Glucose [Mass/Vol] 104 mg/dL High 70 - 100 mg/dL [facility] Interpretation and review of laboratory results Abnormal [facility] Potassium [Moles/Vol] 4.5 mmol/L 3.5 - 5.1 mmol/L [facility] Protein [Mass/Vol] 8 g/dL 6.3 - 8.2 g/dL [facility] Sodium [Moles/Vol] 135 mmol/L 135 - 145 mmol/L [facility] Urea nitrogen [Mass/Vol] 18 mg/dL 9 - 20 mg/dL [facility] ED Nursing Noteon 02-18-2024 ED Nursing Note Aamir bernard at bedside [facility] ED Nursing Note Report called to snf at this time [facility] ED Nursing Note Pt presents with headache, 12/18, from snf, unsure was if he was given any meds at snf, alert and oriented x3, disoriented to year, oriented to month, according to senior care he received norco and tylenol w no relief, per snf states he has constant headache Normal [facility] ED Provider Noteon ED Provider Note [...] of headache that was not relieved with Wilmore or Tylenol this evening at the senior living facility. The senior living facility sent him to the emergency department to be evaluated for his intractable headache. Nursing Notes were reviewed. Limitations to history: Altered mental status/confusion Outside historians: retirement facility REVIEW OF SYSTEMS Review of Systems [...] GERD (gastroesophageal reflux disease) Headache Hemiplegia (CMS/HCC) ([facility]) affecting right dominant side History of pancreatitis 10/28/2022 Hyperlipidemia Hypertension Hypokalemia Insomnia Intracranial injury ([facility]) Lack of coordination Mixed receptive-expressive language disorder Muscle weakness Neuropathy Non-pressure chronic ulcer of other part of right foot with fat layer exposed ([facility]) Pancreatic abscess 07/14/2022 Pancreatitis PVD (peripheral vascular disease) ([facility]) Reduced mobility Repeated falls SIRS (systemic inflammatory response syndrome) ([facility]) TBI (traumatic brain injury) ([facility]) Venous insufficiency SURGICAL HISTORY Past Surgical History: [...] MG CAPSULE CHOLECALCIFEROL (VITAMIN D3) 1.25 MG (92179 UT) TABLET Take by mouth 1 (one) [...] times daily (more content not included)... Normal [facility] Laboratory - Coagulationon 04-19-2023 aPTT Coag (PPP) [Time] 25 s 20.0 - 30.5 s [facility] INR Coag (PPP) [Relative time] 1.1 {INR} 0.9 - 1.1 [facility] Comment on above: Recommended Anticoag ulant [...] 11.9 s 9.0 - 1 2.0 s [facility] No Panel Informationon 02-17 Interpretation and review of laboratory results Normal [facility] PROTIME AND APTTon aPTT Coag (Bld) [Time] 25.0 s Normal 20.0-30.5 [facility] Comment on above: Performed By: #### L [id number] ####Tafe Lecturer: SATYA BRANNON ([id number])[facility] ([facility])[address] [place] [address] INR Coag (PPP) [Relative time] 1.1 {INR} Normal 0.9-1.1 [facility] Comment on above: Result Comment: Saulo [...] prevent Myocardial Infarction Performed By: #### L [id number] ####Tafe Lecturer: SATYA BRANNON ([id number])[facility] ([facility])[address] PT Coag (PPP) [Time] 11.9 s Normal 9.0-12.0 [facility] Comment on above: Performed By: #### L [id number] ####Tafe Lecturer: SATYA BRANNON ([phone])[facility] ([facility])[address] [place] [address] 02-14-2024 29 Encounter addended b y: Marycarmen Corona RN on: 02/15/2024 9:48 AM Actions taken: Charge Capture section accepted [facility] 02-14-2024 37 Return Appointment i n: 1 week - Should you experience any significant changes in your wound(s) or have any questions regarding your home care instructions please contact the wound center at [phone] If after regular business hours, please call [...] lite applied for prevention. Nursing Care Facility: [facility] Wound Treatment to R toes- [...] and sacral area daily and PRN. Normal [facility] 02-07-2024 29 Encounter addended b y: Marycarmen Corona RN on: 02/07/2024 10:59 AM Actions taken: Charge Capture section accepted [facility] 29 Encounter addended b y: Adriana Barbosa MA on: 02/07/2024 10:26 AM Actions taken: Flowsheet accepted [facility] 02-07-2024 37 Return Appointment i n: 1 week - Should you experience any significant changes in your wound(s) or have any questions regarding your home care instructions please contact the wound center at [phone] If after regular business hours, please call [...] Take antibiotic as directed Nursing Care Facility: [facility] Wound Treatment to R toes- [...] buttocks and sacral area daily and PRN. [facility] 29on 01-31-2024 29 Encounter addended b y: Marycarmen Corona RN on: 02/02/2024 10:55 AM Actions taken: Charge Capture section accepted [facility] 37on 01-31-2024 37 Return Appointment i n: 1 week - Should you experience any significant changes in your wound(s) or have any questions regarding your home care instructions please contact the wound center at [phone] If after regular business hours, please call [...] Take antibiotic as directed Nursing Care Facility: [facility] Wound Treatment to R toes- [...] buttocks and sacral area daily and PRN. [facility] Valproic Acid (Depakene) Lev alison 10-21-2024 VALPROIC ACID 72 ug/mL Normal 50-100 [facility] Comment on above: Order Comment: 107-1 Performed By: #### L 501.8100 #### [facility] [address] [place], [address] 29on 01-24-2024 29 Encounter addended b y: Marycarmen Corona RN on: 01/30/2024 3:44 PM Actions taken: LDA properties accepted, Charge Capture section accepted [facility] 01-24-2024 PATINS Return Appointment i n: 1 week - Should you experience any significant changes in your wound(s) or have any questions regarding your home care instructions please contact the wound center at [phone] If after regular business hours, please call [...] Take antibiotic as directed Nursing Care Facility: [facility] Wound Treatment to R toes- [...] and sacral area daily and PRN. Normal [facility] 01-17-2024 PATINS Return Appointment i n: 1 week - Should you experience any significant changes in your wound(s) or have any questions regarding your home care instructions please contact the wound center at [phone] If after regular business hours, please call [...] Take antibiotic as directed Nursing Care Facility: [facility] Wound Treatment to R toes- [...] and sacral area daily and PRN. Normal [facility] PATINSon 01-10-2024 PATINS Return Appointment i n: 1 week - Should you experience any significant changes in your wound(s) or have any questions regarding your home care instructions please contact the wound center at [phone] If after regular business hours, please call [...] Take antibiotic as directed Nursing Care Facility: [facility] Wound Treatment to R toes- [...] and sacral area daily and PRN. Normal [facility] CBC-Complete Blood Cnt No Di ffon 01-09-2024 Erythrocyte distribution width (RBC) [Ratio] 13.2 % Normal 11.6-14.6 [facility] Comment on above: Order Comment: 107.1 Performed By: #### L 501.8100, L500.4100, L100.0500 #### [facility] [address] [place], [address] Hematocrit (Bld) [Volume fraction] 45.1 % Normal 40-54 [facility] Comment on above: Order Comment: 107.1 Performed By: #### L 501.8100, L500.4100, L100.0500 #### [facility] [address] [place], [address] Hemoglobin (Bld) [Mass/Vol] 15.3 g/dL Normal 13.0-16.5 [facility] Comment on above: Order Comment: 107.1 Performed By: #### L 501.8100, L500.4100, L100.0500 #### [facility] [address] [place], [address] MCH (RBC) [Entitic mass] 30.4 pg Normal 27.0-32.0 [facility] Comment on above: Order Comment: 107.1 Performed By: #### L 501.8100, L500.4100, L100.0500 #### [facility] [address] [place], [address] MCHC (RBC) [Mass/Vol] 33.9 g/dL Normal 32-36 [facility] Comment on above: Order Comment: 107.1 Performed By: #### L 501.8100, L500.4100, L100.0500 #### [facility] [address] [place], [address] MCV (RBC) [Entitic vol] 89.5 fL Normal 80-94 [facility] Comment on above: Order Comment: 107.1 Performed By: #### L 501.8100, L500.4100, L100.0500 #### [facility] [address] [place], [address] Platelet mean volume (Bld) [Entitic vol] 10.9 fL Normal 6.2-12.0 [facility] Comment on above: Order Comment: 107.1 Performed By: #### L 501.8100, L500.4100, L100.0500 #### [facility] [address] [place], [address] Platelets (Bld) [#/Vol] 133 10*3/uL Low 150-450 [facility] Comment on above: Order Comment: 107.1 Performed By: #### L 501.8100, L500.4100, L100.0500 #### [facility] [address] [place], [address] RBC (Bld) [#/Vol] 5.04 10*6/uL Normal 4.6-6.2 [facility] Comment on above: Order Comment: 107.1 Performed By: #### L 501.8100, L500.4100, L100.0500 #### [facility] [address] [place], [address] RDW SD 41.9 fl Normal 35.1-43.9 [facility] Comment on above: Order Comment: 107.1 Performed By: #### L 501.8100, L500.4100, L100.0500 #### [facility] [address] [place], [address] WBC (Bld) [#/Vol] 7.0 10*3/uL Normal 4.4-11.0 [facility] Comment on above: Order Comment: 107.1 Performed By: #### L 501.8100, L500.4100, L100.0500 #### [facility] [address] [place], [address] Lipid Profileon 01-09-2024 Cholesterol [Mass/Vol] 122 mg/dL Normal 200 [facility] Comment on above: Order Comment: 107.1 Result Comment: <200 mg/dL Desirable 200-240 mg/dL Borderline >240 mg/dL High Risk Performed By: #### L 501.8100, L500.4100, L100.0500 #### [facility] [address] [place], [address] Cholesterol in HDL [Mass/Vol] 46 mg/dL Normal [facility] Comment on above: Order Comment: 107.1 Result Comment: The drugs N-Acetylcysteine and Metamizole may falsely depress this assay. Reference Range HDL <40 mg/dL Low HDL Cholesterol HDL >or= 60 mg/dL High HDL Cholesterol Performed By: #### L 501.8100, L500.4100, L100.0500 #### [facility] [address] [place], [address] Cholesterol in LDL [Mass/Vol] 44 mg/dL Normal 0-130 [facility] Comment on above: Order Comment: 107.1 Performed By: #### L 501.8100, L500.4100, L100.0500 #### [facility] [address] [place], [address] Cholesterol in VLDL [Mass/Vol] 32 mg/dL Normal 5-40 [facility] Comment on above: Order Comment: 107.1 Performed By: #### L 501.8100, L500.4100, L100.0500 #### [facility] [address] [place], [address] Triglyceride [Mass/Vol] 158 mg/dL Normal [facility] Comment on above: Order Comment: 107.1 Result Comment: The drugs N-Acetylcysteine and Metamizole may falsely depress this assay. Serum Triglycerides Reference Interval Normal <150 mg/dL Borderline high 150 - 199 mg/dL High 200 - 499 mg/dL Very High > or = 500 mg/dL Performed By: #### L 501.8100, L500.4100, L100.0500 #### [facility] [address] [place], [address] Valproic Acid (Depakene) Lev alison 01-09-2024 VALPROIC ACID 62 ug/mL Normal 50-100 [facility] Comment on above: Order Comment: 107.1 Performed By: #### L 501.8100, L500.4100, L100.0500 #### [facility] [address] [place], [address] PATINSon 01-03-2024 PATINS Return Appointment i n: 1 week - Should you experience any significant changes in your wound(s) or have any questions regarding your home care instructions please contact the wound center at [phone] If after regular business hours, please call [...] Take antibiotic as directed Nursing Care Facility: [facility] Wound Treatment to R toes- [...] buttocks and sacral area daily and PRN. [facility] 12-27-2023 PATINS Return Appointment i n: 1 week - Should you experience any significant changes in your wound(s) or have any questions regarding your home care instructions please contact the wound center at [phone] If after regular business hours, please call [...] Take antibiotic as directed Nursing Care Facility: [facility] Wound Treatment to R toes- [...] buttocks and sacral area daily and PRN. [facility] 12-20-2023 PATINS Return Appointment i n: 1 week - Should you experience any significant changes in your wound(s) or have any questions regarding your home care instructions please contact the wound center at [phone] If after regular business hours, please call [...] Take antibiotic as directed Nursing Care Facility: [facility] Wound Treatment to R toes- [...] buttocks and sacral area daily and PRN. [facility] 12-13-2023 PATINS Return Appointment i n: 1 week - Should you experience any significant changes in your wound(s) or have any questions regarding your home care instructions please contact the wound center at [phone] If after regular business hours, please call [...] Take antibiotic as directed Nursing Care Facility: [facility] Wound Treatment to R toes- [...] buttocks and sacral area daily and PRN. [facility] 12-06-2023 PATINS Return Appointment i n: 1 week - Should you experience any significant changes in your wound(s) or have any questions regarding your home care instructions please contact the wound center at [phone] If after regular business hours, please call [...] Take antibiotic as directed Nursing Care Facility: [facility] Wound Treatment to R toes- [...] buttocks and sacral area daily and PRN. [facility] PATINSon 11-29-2023 PATINS Return Appointment i n: 1 week - Should you experience any significant changes in your wound(s) or have any questions regarding your home care instructions please contact the wound center at [phone] If after regular business hours, please call [...] Take antibiotic as directed Nursing Care Facility: [facility] Wound Treatment to R toes- [...] buttocks and sacral area daily and PRN. [facility] No Panel Informationon 11-21 Julissa Taylor DO 11/22/2023 11:40 AM Debridement Wound/Incision 11/15/23 Venous Ulcer Leg Right;Lower;Anterior;La teral Performed by: Julissa Taylor, DO Authorized by: Julissa Taylor, DO Consent Consent obtained? verbal Consent given by: patient Risks discussed? procedural risks discussed Immediately prior to the procedure a time out was called and the performing provider verified the correct patient, procedure, equipment, passport support associate, and site/side marked as required. Debridement Details [...] Response to treatment: procedure was tolerated well [facility] 11-22-2023 [facility] Return Appointment i n: 1 week - Should you experience any significant changes in your wound(s) or have any questions regarding your home care instructions please contact the wound center at [phone] If after regular business hours, please call [...] Take antibiotic as directed Nursing Care Facility: [facility] Wound Treatment to R toes- [...] and sacral area daily and PRN. Normal [facility] Progress Noteon 11-17-2023 Progress Note [facility] Wound Care [facility] Nurse Visit [...] stable condition. Ambulatory Status: Wheelchair Discharge Destination: senior living facility Transportation: Private Auto Accompanied by: caregiver Schedule Follow up Appointment: no No orders of the defined types were placed in this encounter. [facility]15[facility]20[facility] Appointment i n: 1 week - Should you experience any significant changes in your wound(s) or have any questions regarding your home care instructions please contact the wound center at [phone] If after regular business hours, please call [...] Take antibiotic as directed Nursing Care Facility: [facility] Wound Treatment to R toes- Daily Cleanse wound with mild soap and water and pat dry. Apply Calcium Alginate Apply dry dressing to cover the wound and secure with tape. Wound Treatment to RLE: Cleanse wound with mild soap and water and pat dry. Apply Calcium Alginate Apply Profore light return to center on Monday 8/9 Do not get wet. OK to shower if wound dressing covered Apply Barrier Cream to bilateral buttocks and sacral area daily and PRN. [facility] Progress Noteon 11-15-2023 Progress Note Assessments Nursing [...] Test Results/Process Orders 10 [] Staff telephones [facility], Nursing Homes/Clarify Orders 10 [] Routine Transfer [...] Points) Level 5 (160 or more Points) [facility] 11-08-2023 [facility] Return Appointment i n: 1 week - Should you experience any significant changes in your wound(s) or have any questions regarding your home care instructions please contact the wound center at [phone] If after regular business hours, please call [...] Take antibiotic as directed Nursing Care Facility: [facility] Wound Treatment to R toes and R leg: Daily Cleanse wound with mild soap and water and pat dry. Apply Calcium Alginate Apply dry dressing to cover the wound and secure with tape. 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 [facility] Progress Noteon 11-08-2023 Progress Note Assessments Nursing [...] Test Results/Process Orders 10 [x] Staff telephones [facility], Nursing Homes/Clarify Orders 10 [x] Routine Transfer [...] Points) Level 5 (160 or more Points) [facility] 11-01-2023 [facility] Return Appointment i n: 1 week - Should you experience any significant changes in your wound(s) or have any questions regarding your home care instructions please contact the wound center at [phone] If after regular business hours, please call [...] Take antibiotic as directed Nursing Care Facility: [facility] Wound Treatment to R toes: Daily Cleanse [...] and sacral area daily and PRN. Normal [facility] No Panel Informationon 10-24 Julissa Taylor DO [...] provider verified the correct patient, procedure, equipment, passport support associate, and site/side marked as required. Debridement Details [...] Response to treatment: procedure was tolerated well [facility] PATINSon 10-25-2023 PATINS Return Appointment i n: 1 week - Should you experience any significant changes in your wound(s) or have any questions regarding your home care instructions please contact the wound center at [phone] If after regular business hours, please call [...] Take antibiotic as directed Nursing Care Facility: [facility] Wound Treatment: Wound: right toes and RLE Dressing Frequency: Dressing weekly Wound Cleansing: OK to shower if wound dressing covered Apply hydrafera blue Secondary Dressing: Superabsorbent pad or sorbex Secure With: Kerlex Roll gauze 4, Silk Tape 1 Compression: Unna boot profore lite Apply Barrier Cream to bilateral buttocks and sacral area daily and PRN. [facility] PATINSon 10-18-2023 PATINS Return Appointment i n: 1 week - Should you experience any significant changes in your wound(s) or have any questions regarding your home care instructions please contact the wound center at [phone] If after regular business hours, please call [...] Take antibiotic as directed Nursing Care Facility: [facility] Wound Treatment: Wound: right toes Dressing Frequency: Dressing in place every other day Wound Cleansing: Cleanse with antibacterial soap and water, pat dry Primary Dressing: Calcium Alginate 4/4 Secondary Dressing: Superabsorbent pad or sorbex Secure With: Kerlex Roll gauze 4, Silk Tape 1 Compression: Sure press or Setopress Apply Barrier Cream to bilateral buttocks and sacral area daily and PRN. [facility] No Panel Informationon 10-10 Julissa Taylor DO 10/11/2023 11:30 AM Debridement Wound/Incision 08/23/23 Venous Ulcer Toe- second Right Performed by: Julissa Taylor DO Authorized by: Julissa Taylor, DO Consent Consent obtained? verbal Consent given by: patient Risks discussed? procedural risks discussed Immediately prior to the procedure a time out was called and the performing provider verified the correct patient, procedure, equipment, passport support associate, and site/side marked as required. Debridement Details [...] Response to treatment: procedure was tolerated well [facility] Julissa Taylor DO 10/11/2023 11:30 AM Debridement Wound/Incision 08/23/23 Venous Ulcer Toe - third Right Performed by: Julissa Taylor DO Authorized by: Julissa Taylor, DO Consent Consent obtained? verbal Consent given by: patient Risks discussed? procedural risks discussed Immediately prior to the procedure a time out was called and the performing provider verified the correct patient, procedure, equipment, passport support associate, and site/side marked as required. Debridement Details [...] Response to treatment: procedure was tolerated well [facility] PATINSon 10-11-2023 PATINS Return Appointment i n: 1 week - Should you experience any significant changes in your wound(s) or have any questions regarding your home care instructions please contact the wound center at [phone] If after regular business hours, please call [...] help with wound healing Nursing Care Facility: [facility] Wound Treatment: Wound: right toes Dressing Frequency: Keep dressing in place all week Wound Cleansing: May shower with protection - Protect wound and dressing with water repellant cover/cast cover (e.g., large plastic bag) which can be obtained at [facility] and may take shower. Hold Collagen AG for now Secondary Dressing: Calcium Alginate 4x4 Secure With: Kerlex Roll gauze 4, Silk Tape 1 Compression: Unna boot & multilayer compression wrap - 3 layers (cover toes) Apply Barrier Cream to bilateral buttocks and sacral area daily and PRN. Normal [facility] No Panel Informationon 10-03 Julissa Taylor DO 10/04/2023 4:29 PM Debridement Wound/Incision 08/23/23 Venous Ulcer Toe- second Right Performed by: Julissa Taylor DO Authorized by: Julissa Taylor, DO Consent Consent obtained? verbal Consent given by: patient Risks discussed? procedural risks discussed Immediately prior to the procedure a time out was called and the performing provider verified the correct patient, procedure, equipment, passport support associate, and site/side marked as required. Debridement Details [...] Response to treatment: procedure was tolerated well [facility] uJlissa Taylor DO 10/04/2023 4:29 PM Debridement Wound/Incision 08/23/23 Venous Ulcer Toe - third Right Performed by: Julissa Taylor DO Authorized by: Julissa Taylor, Consent Consent obtained? verbal Consent given by: patient Risks discussed? procedural risks discussed Immediately prior to the procedure a time out was called and the performing provider verified the correct patient, procedure, equipment, passport support associate, and site/side marked as required. Debridement Details [...] Response to treatment: procedure was tolerated well [email or web address] [facility] Return Appointment i n: 1 week - Should you experience any significant changes in your wound(s) or have any questions regarding your home care instructions please contact the wound center at [phone] If after regular business hours, please call [...] help with wound healing Nursing Care Facility: [facility] Wound Treatment: Wound: right toes Dressing Frequency: Keep dressing in place all week Wound Cleansing: May shower with protection - Protect wound and dressing with water repellant cover/cast cover (e.g., large plastic bag) which can be obtained at [facility] and may take shower. Primary Dressing: Collagen Ag 2x2 Secondary Dressing: Calcium Alginate 4x4 Secure With: Kerlex Roll gauze 4, Silk Tape 1 Compression: Unna boot & multilayer compression wrap - 3 layers (cover toes) Apply Barrier Cream to bilateral buttocks and sacral area daily and PRN. [facility] 09-27-2023 PATINS Return Appointment i n: 1 week - Should you experience any significant changes in your wound(s) or have any questions regarding your home care instructions please contact the wound center at [phone] If after regular business hours, please call [...] help with wound healing Nursing Care Facility: [facility] Wound Treatment: Wound: right toes Dressing Frequency: Keep dressing in place all week Wound Cleansing: May shower with protection - Protect wound and dressing with water repellant cover/cast cover (e.g., large plastic bag) which can be obtained at [facility] and may take shower. Primary Dressing: Collagen Ag 2x2 Secondary Dressing: Calcium Alginate 4x4 Secure With: Kerlex Roll gauze 4, Silk Tape 1 Compression: Unna boot & multilayer compression wrap - 3 layers (cover toes) [facility] 09-20-2023 PATINS Return Appointment i n: 1 week - Should you experience any significant changes in your wound(s) or have any questions regarding your home care instructions please contact the wound center at [phone] If after regular business hours, please call [...] help with wound healing Nursing Care Facility: [facility] Wound Treatment: Wound: right toes Dressing Frequency: Keep dressing in place all week Wound Cleansing: May shower with protection - Protect wound and dressing with water repellant cover/cast cover (e.g., large plastic bag) which can be obtained at [facility] and may take shower. Primary Dressing: Collagen Ag 2x2 Secondary Dressing: Calcium Alginate 4x4 Secure With: Kerlex Roll gauze 4, Silk Tape 1 Compression: Unna boot & multilayer compression wrap - 3 layers (cover toes) [facility] No Panel Informationon 09-12 Julissa Taylor DO 09/13/2023 3:24 PM Debridement Wound/Incision 08/23/23 Venous Ulcer Toe- second Right Performed by: Julissa Taylor DO Authorized by: Julissa Taylor, DO Consent Consent obtained? verbal Consent given by: patient Risks discussed? procedural risks discussed Immediately prior to the procedure a time out was called and the performing provider verified the correct patient, procedure, equipment, passport support associate, and site/side marked as required. Debridement Details [...] Response to treatment: procedure was tolerated well [facility] Julissa Taylor DO 09/13/2023 3:24 PM Debridement Wound/Incision 08/23/23 Venous Ulcer Toe - third Right Performed by: Julissa Taylor DO Authorized by: Julissa Taylor, DO Consent Consent obtained? verbal Consent given by: patient Risks discussed? procedural risks discussed Immediately prior to the procedure a time out was called and the performing provider verified the correct patient, procedure, equipment, passport support associate, and site/side marked as required. Debridement Details [...] Response to treatment: [facility] Return Appointment i n: 1 week - Should you experience any significant changes in your wound(s) or have any questions regarding your home care instructions please contact the wound center at [phone] If after regular business hours, please call [...] help with wound healing Nursing Care Facility: [facility] Wound Treatment: Wound: right toes & lower leg Dressing Frequency: Keep dressing in place all week Wound Cleansing: May shower with protection - Protect wound and dressing with water repellant cover/cast cover (e.g., large plastic bag) which can be obtained at [facility] and may take shower. Primary Dressing: Collagen Ag 2x2 Secondary Dressing: Calcium Alginate 4x4 & hydralock Secure With: Kerlex Roll gauze 4, Silk Tape 1 Compression: Unna boot & multilayer compression wrap - 3 layers (cover toes) [facility] No Panel Informationon 09-05 Julissa Taylor DO 09/06/2023 3:16 PM Debridement Wound/Incision 08/23/23 Venous Ulcer Toe- second Right Performed by: Julissa Taylor DO Authorized by: Julissa Taylor, DO Consent Consent obtained? verbal Consent given by: patient Risks discussed? procedural risks discussed Immediately prior to the procedure a time out was called and the performing provider verified the correct patient, procedure, equipment, passport support associate, and site/side marked as required. Debridement Details [...] Response to treatment: procedure was tolerated well [facility] Julissa Taylor DO 09/06/2023 3:16 PM Debridement Wound/Incision 08/23/23 Venous Ulcer Toe - third Right Performed by: Julissa Taylor DO Authorized by: Julissa Taylor DO Consent Consent obtained? verbal Consent given by: patient Risks discussed? procedural risks discussed Immediately prior to the procedure a time out was called and the performing provider verified the correct patient, procedure, equipment, passport support associate, and site/side marked as required. Debridement Details [...] Response to treatment: procedure was tolerated well [facility] Julissa Taylor DO 09/06/2023 3:16 PM Debridement Wound/Incision 08/30/23 Skin Tear Calf Right Performed by: Julissa Taylor DO Authorized by: Julissa Taylor, DO Consent Consent obtained? verbal Consent given by: patient Risks discussed? procedural risks discussed Immediately prior to the procedure a time out was called and the performing provider verified the correct patient, procedure, equipment, passport support associate, and site/side marked as required. Debridement Details [...] Response to treatment: procedure was tolerated well [facility] 09-06-2023 PATINS Return Appointment i n: 1 week - Should you experience any significant changes in your wound(s) or have any questions regarding your home care instructions please contact the wound center at [phone] If after regular business hours, please call [...] help with wound healing Nursing Care Facility: [facility] Wound Treatment: Wound: right toes & lower leg Dressing Frequency: Keep dressing in place all week Wound Cleansing: May shower with protection - Protect wound and dressing with water repellant cover/cast cover (e.g., large plastic bag) which can be obtained at [facility] and may take shower. Primary Dressing: Collagen Ag 2x2 Secondary Dressing: Calcium Alginate 4x4 & hydralock Secure With: Kerlex Roll gauze 4, Silk Tape 1 Compression: Unna boot & multilayer compression wrap - 3 layers (cover toes) Normal [facility] No Panel Informationon 08-29 Julissa Taylor DO 08/30/2023 2:41 PM Debridement Wound/Incision 08/23/23 Venous Ulcer Leg Right;Circumferential Performed by: Julissa Taylor DO Authorized by: Julissa Taylor, Consent Consent obtained? verbal Consent given by: patient Risks discussed? procedural risks discussed Immediately prior to the procedure a time out was called and the performing provider verified the correct patient, procedure, equipment, passport support associate, and site/side marked as required. Debridement Details [...] Response to treatment: procedure was tolerated well [facility] PATINSon 08-30-2023 PATINS Return Appointment i n: 1 week - Should you experience any significant changes in your wound(s) or have any questions regarding your home care instructions please contact the wound center at [phone] If after regular business hours, please call [...] help with wound healing Nursing Care Facility: [facility] Wound Treatment: Wound: right toes & lower leg Dressing Frequency: Keep dressing in place all week Wound Cleansing: May shower with protection - Protect wound and dressing with water repellant cover/cast cover (e.g., large plastic bag) which can be obtained at [facility] and may take shower. Primary Dressing: Collagen Ag 2x2 Secondary Dressing: Calcium Alginate 4x4 & hydralock Secure With: Kerlex Roll gauze 4, Silk Tape 1 Compression: Unna boot & multilayer compression wrap - 3 layers (cover toes) [facility] 08-23-2023 PATINS Return Appointment i n: 1 week - Should you experience any significant changes in your wound(s) or have any questions regarding your home care instructions please contact the wound center at [phone] If after regular business hours, please call [...] help with wound healing Nursing Care Facility: [facility] Wound Treatment: Wound: right toes & lower leg Dressing Frequency: Keep dressing in place all week Wound Cleansing: May shower with protection - Protect wound and dressing with water repellant cover/cast cover (e.g., large plastic bag) which can be obtained at [facility] and may take shower. Primary Dressing: Collagen Ag 2x2 Secondary Dressing: Calcium Alginate 4x4 & hydralock Secure With: Kerlex Roll gauze 4, Silk Tape 1 Compression: Unna boot & multilayer compression wrap - 3 layers (cover toes) Normal [facility] Progress Noteon 08-23-2023 Progress Note [facility] OSTOMY [facility] [address] [facility] [address] Loc: [phone] Wound Care Visit - New Patient Progress [...] , Rfl: cholecalciferol (Vitamin D3) 1.25 MG (24270 UT) tablet, Take by mouth 1 (one) [...] sprinkle (De (more content not included)... Normal [facility] Basophil percentageOrdered B y: Demetrius Fenton on 07-16-2023 Basophil percentage 25-50 SEEN /hpf 0-5 [facility] Bilirubin Test strip Ql (U)O rdered By: Demetrius Fenton on 07-16-2023 Bilirubin Ql (U) Negative Negative [facility] Ketones Test strip Ql (U)Ord ered By: Demetrius Fenton on 07-16-2023 Ketones Ql (U) 5 mg/dl Negative [facility] Mucus LM Ql (Urine sed)Order ed By: Demetrius Fenton on 07-16-2023 Mucus Ql (Urine sed) 0 SEEN /hpf [facility] Nitrite Test strip Ql (U)Ord ered By: Demetrius Fenton on 07-16-2023 Nitrite Ql (U) Positive Negative [facility] No Panel InformationOrdered By: Demetrius Fenton on 07-16-2023 Urine RBC 0 SEEN /hpf 0-5 [facility] Protein Test strip Ql (U)Ord ered By: Demetrius Fenton on 07-16-2023 Protein Ql (U) Negative Negative [facility] Squamous epithelial cells de tection in urine sediment by light microscopyOrdered By: Demetrius Fenton on 07-16-2023 Epithelial cells.squamous LM Ql (Urine sed) 0-5 SEEN /hpf 0-5 [facility] Urine blood detectionOrdered By: Demetrius Fenton on 07-16-2023 RBC Ql (U) Negative Negative [facility] Urine clarityOrdered By: Miriam Fenton on 07-16-2023 Clarity (U) Sl. Cloudy Clear [facility] Urine color determinationOrd ered By: Demetrius Fenton on 07-16-2023 Color (U) Yellow Yellow [facility] Urine glucose detectionOrder ed By: Demetrius Fenton on 07-16-2023 Glucose Ql (U) Normal mg/dl Normal [facility] Urine leukocyte esterase det ection by dipstickOrdered By: Demetrius Fenton on 07-16-2023 Leukocyte esterase Test strip Ql (U) 500 /ul Negative [facility] Urine pHOrdered By: Demetrius astorga on 07-16-2023 pH (U) 6.0 [pH] 5.0 - 8.0 [facility] Urine sediment bacteria coun t by microscopy (number/high power field)Ordered By: Demetrius Fenton on 07-16-2023 Bacteria LM.HPF (Urine sed) [#/Area] 2 /[HPF] None Seen [facility] Urine specific gravity measu rementOrdered By: Demetrius Fenton on 07-16-2023 Specific gravity (U) [Rel density] 1.015 1.002-1.030 [facility] Urine urobilinogen measureme ntOrdered By: Demetrius Fenton on 07-16-2023 Urobilinogen Ql (U) 1 mg/dl Normal [facility] Bacteria identified Cx Nom ( Wound)Ordered By: Demetrius Fenton on 06-28-2023 Wound Culture Meth. resistant Stap h. aureus [facility] Wound Culture Enterococcus faecalis [facility] Wound Culture Acinetobacter junii [facility] Wound Culture Pseudomonas aeruginosa [facility] Gram stain for investigation of transfusion reactionOrdered By: Demetrius Fenton on 06-28-2023 Microscopic observation Gram stain Nom (Unsp spec) [facility] Bacteria identified Cx Nom ( Wound)Ordered By: Demetrius Fenton on 06-27-2023 Wound Culture Pseudomonas aeruginosa [facility] Wound Culture Enterococcus faecalis [facility] Gram stain for investigation of transfusion reactionOrdered By: Demetrius Fenton on 06-27-2023 Microscopic observation Gram stain Nom (Unsp spec) [facility] BLOOD CULTUREon 06-23-2023 Bacteria identified Cx Nom (Bld) BLOOD CULTURE Reference No growth at 5 days ORDER COMMENTS: Blood Collection Site: Left Forearm [ S = SUSCEPTIBLE R = RESISTANT I = INTERMEDIATE S-DD = Susceptible-dose dependent NS = Non-susceptible NO = No Interpretation ] Normal [facility] Comment on above: Performed By: #### L [id number] #### Tafe Lecturer: SHARLA FINNEY ([id number]) [facility] ([facility]) [address] [place] [address] CT ABDOMEN PELVIS W CONTRAST on 06-23-2023 CT ABDOMEN PELVIS W CONTRAST Patient Name: MOISES MADRID : 1960 [facility]#: [id number] Exam Date/Time: 06/23/2023 00:08 Procedure: CT ABDOMEN [...] arm and left has shoulder issues. Normal [facility] CT Abdomen and Pelvis W cont rast Constantine 06-23-2023 No evidence of acute pathology within the abdomen or pelvis. Interval decrease in size of peripancreatic fluid collection likely representing sequela of remote pancreatitis. Constipation. Report Dictated on Electronically Signed By: Barry Castillo MD Electronically Signed Date/Time: 06/23/2023 12:33 AM EDT [facility] Patient Name: MOISES VERONICA : 1960 Exam Date/Time: 06/23/2023 00:08 Procedure: [...] evidence of acute fracture or dislocation. [facility] Barry Castillo MD - 06/23/2023 Patient Name: MOISES MADRID : 1960 Exam [...] Electronically Signed Date/Time: 06/23/2023 12:33 AM EDT [facility]domen and Pelvis W cont rast IVOrdered By: Barry Castillo on 06-23-2023 [facility] Phone: ED Nursing Noteon 06-23-2023 ED Nursing Note [place] [facility] called and given patient update and ETA for discharge/transport Danyell Mcneill RN 06/23/23 0127 [facility] ED Nursing Note [facility] ETA 0300 Danyell Mcneill RN 06/23/23 0127 [facility] No Panel InformationOrdered By: Jose Phillips on 06-23-2023 P Thornton 44 degrees [facility] Work Phone: [phone] [place] Interval 159 ms [facility] Work Phone: QRS Thornton -36 degrees [facility] Work Phone: QRSD Interval 108 ms [facility] [employer] Work Phone: QT Interval 430 ms [facility] Work Phone: [phone] QTC Interval 476 ms [facility] [employer] Work Phone: [phone] T Wave Thornton 28 degrees [facility] Work Phone: [facility] Work Phone: No Panel Informationon 06-22 Jose Phillips D O - 06/23/2023 IMPRESSION: Sinus rhythm Abnormal R-wave progression, early transition Left ventricular hypertrophy Borderline prolonged QT interval Compared to ECG 06/09/22 Tachycardia no longer present LEFT VENTRICULAR HYPERTROPHY again noted Electronically Signed On 06-23-2023 00:11:27 EDT by Jose Phillips [facility] [employer] Vital signsOrdered By: Lacie Phillips on 06-23-2023 Heart rate 73 /min bpm [facility] [employer] Work Phone: BLOOD CULTUREon 06-22-2023 Bacteria identified Cx Nom (Bld) BLOOD CULTURE Reference No growth at 5 days ORDER COMMENTS: Blood Collection Site: Left Forearm [ S = SUSCEPTIBLE R = RESISTANT I = INTERMEDIATE S-DD = Susceptible-dose dependent NS = Non-susceptible NO = No Interpretation ] Normal [facility] Comment on above: Performed By: #### L [id number] ####Tafe Lecturer: SHARLA FINNEY ([id number])[facility] ([address] CBC W Auto Differential pane l (Bld)on 06-22-2023 Basophils (Bld) [#/Vol] 0.1 10*3/uL 0.0 - 0.2 10*3/uL [facility] Basophils/100 WBC (Bld) 0.5 % 0.0 - 2.0 % [facility] Eosinophils (Bld) [#/Vol] 0.3 10*3/uL 0.0 - 0.5 10*3/uL [facility] Eosinophils/100 WBC (Bld) 2.7 % 0.0 - 6.0 % [facility] Erythrocyte distribution width (RBC) [Ratio] 13.1 % 11.5 - 15.0 % [facility] Hematocrit (Bld) [Volume fraction] 44.6 % 40.0 - 52.0 % [facility] Hemoglobin (Bld) [Mass/Vol] 15.1 g/dL 13.0 - 18.0 g/dL [facility] Immature granulocytes (Bld) [#/Vol] 0.1 10*3/uL High NINF - 0.1 10*3/uL [facility] [employer] Immature granulocytes/100 WBC (Bld) 0.5 % 0.0 - 2.0 % [facility] Interpretation and review of laboratory results Abnormal [facility] Lymphocytes (Bld) [#/Vol] 2.7 10*3/uL 1.0 - 4.3 10*3/uL [facility] Lymphocytes/100 WBC (Bld) 25.5 % 15.0 - 45.0 % [facility] MCH (RBC) [Entitic mass] 30.6 pg 26.0 - 34.0 pg [facility] MCHC (RBC) [Mass/Vol] 33.9 % 30.5 - 36.0 % [facility] MCV (RBC) [Entitic vol] 90.5 fL 77.0 - 99.0 fL [facility] Monocytes (Bld) [#/Vol] 1.0 10*3/uL High 0.0 - 0.9 10*3/uL [facility] Monocytes/100 WBC (Bld) 9.5 % 5.0 - 13.0 % [facility] Neutrophils (Bld) [#/Vol] 6.5 10*3/uL 1.8 - 7.5 10*3/uL [facility] Neutrophils/100 WBC (Bld) 61.3 % 38.0 - 82.0 % [facility] Nucleated RBC/100 WBC (Bld) [Ratio] 0.0 % [facility] Platelet mean volume (Bld) [Entitic vol] 10.7 fL 9.0 - 12.7 fL [facility] Platelets (Bld) [#/Vol] 181 10*3/uL 140 - 440 10*3/uL [facility] RBC (Bld) [#/Vol] 4.93 10*6/uL 4.40 - 5.9 0 10*6/uL [facility] WBC (Bld) [#/Vol] 10.5 10*3/uL 3.6 - 10.7 10*3/uL [facility] CBC WITH AUTO DIFFERENTIALon 06-22-2023 Basophils (Bld) [#/Vol] 0.1 10*3/uL Normal 0.0-0.2 [facility] Comment on above: Performed By: #### L [id number] #### Tafe Lecturer: SHARLA FINNEY ([id number]) [facility] ([facility]) [address] [place] [address] Basophils/100 WBC (Bld) 0.5 % Normal 0.0-2.0 [facility] Comment on above: Performed By: #### L [id number] #### Tafe Lecturer: SHARLA FINNEY ([id number]) [facility]) [address] [place] [address] Eosinophils (Bld) [#/Vol] 0.3 10*3/uL Normal 0.0-0.5 [facility] Comment on above: Performed By: #### L [id number] #### Tafe Lecturer: SHARLA FINNEY ([id number]) [facility]) [address] [place] [address] Eosinophils/100 WBC (Bld) 2.7 % Normal 0.0-6.0 [facility] Comment on above: Performed By: #### L [id number] #### Tafe Lecturer: SHARLA FINNEY ([id number]) [facility] ([facility]) [address] [place] [address] Erythrocyte distribution width (RBC) [Ratio] 13.1 % Normal 11.5-15.0 [facility] Comment on above: Performed By: #### L [id number] #### Tafe Lecturer: SHARLA FINNEY ([id number]) [facility]) [address] [place] [address] Hematocrit (Bld) [Volume fraction] 44.6 % Normal 40.0-52.0 [facility] Comment on above: Performed By: #### L [id number] #### Tafe Lecturer: SHARLA FINNEY ([id number]) [facility]) [address] [place] [address] Hemoglobin (Bld) [Mass/Vol] 15.1 g/dL Normal 13.0-18.0 [facility] Comment on above: Performed By: #### L [id number] #### Tafe Lecturer: SHARLA FINNEY ([id number]) [facility] ([facility]) [address] [place] [address] IMMATURE GRANS % 0.5 % Normal 0.0-2.0 [facility] Comment on above: Performed By: #### L [id number] #### Tafe Lecturer: SHARLA FINNEY ([id number]) [facility]) [address] [place] [address] IMMATURE GRANS ABSOLUTE 0.1 10*3/uL High <0.1 [facility] Comment on above: Performed By: #### L [id number] #### Tafe Lecturer: SHARLA FINNEY ([id number]) [facility]) [address] [place] [address] Lymphocytes (Bld) [#/Vol] 2.7 10*3/uL Normal 1.0-4.3 [facility] Comment on above: Performed By: #### L [id number] #### Tafe Lecturer: SHARLA FINNEY ([id number]) [address] Lymphocytes/100 WBC (Bld) 25.5 % Normal 15.0-45.0 [facility] Comment on above: Performed By: #### L [id number] #### Tafe Lecturer: SHARLA FINNEY ([id number]) [facility]) [address] [place] [address] MCH (RBC) [Entitic mass] 30.6 pg Normal 26.0-34.0 [facility] Comment on above: Performed By: #### L [id number] #### Tafe Lecturer: SHARLA FINNEY ([id number]) [address] MCHC 33.9 % Normal 30.5-36.0 [facility] Comment on above: Performed By: #### L [id number] #### Tafe Lecturer: SHARLA FINNEY ([id number]) [facility]) [address] [place] [address] MCV (RBC) [Entitic vol] 90.5 fL Normal 77.0-99.0 [facility] Comment on above: Performed By: #### L [id number] #### Tafe Lecturer: SHARLA [id number]) [facility] [address] [place] [address] [place] Monocytes (Bld) [#/Vol] 1.0 10*3/uL High 0.0-0.9 [facility] Comment on above: Performed By: #### L [id number] #### Tafe Lecturer: SHARLA FINNEY ([id number]) [facility] [address] [place] [address] [place] Monocytes/100 WBC (Bld) 9.5 % Normal 5.0-13.0 [facility] Comment on above: Performed By: #### L [id number] #### Tafe Lecturer: SHARLA FINNEY ([id number]) [facility] ([facility]) [address] [place] [address] NEUTROPHILS ABSOLUTE 6.5 10*3/uL Normal 1.8-7.5 [facility] Comment on above: Performed By: #### L [id number] #### Tafe Lecturer: SHARLA FINNEY ([id number]) [facility] ([facility]) [address] [place] [address] Neutrophils/100 WBC (Bld) 61.3 % Normal 38.0-82.0 [facility] Comment on above: Performed By: #### L [id number] #### Tafe Lecturer: SHARLA FINNEY ([id number]) [facility] ([facility]) [address] [place] [address] [place] NRBC 0.0 /100 WBCs Normal 0.0-2.0 [facility] Comment on above: Performed By: #### L [id number] #### Tafe Lecturer: SHARLA FINNEY ([id number]) [facility] ([facility]) [address] [place] [address] Platelet mean volume (Bld) [Entitic vol] 10.7 fL Normal 9.0-12.7 [facility] Comment on above: Performed By: #### L [id number] #### Tafe Lecturer: SHARLA FINNEY ([id number]) [facility] ([facility]) [address] [place] [address] [place] Platelets (Bld) [#/Vol] 181 10*3/uL Normal 140-440 [facility] Comment on above: Performed By: #### L [id number] #### Tafe Lecturer: SHARLA FINNEY ([id number]) [facility] ([facility]) [address] [place] [address] RBC (Bld) [#/Vol] 4.93 10*6/uL Normal 4.40-5.90 [facility] Comment on above: Performed By: #### L [id number] #### Tafe Lecturer: SHARLA FINNEY ([id number]) [facility] ([facility]) [address] [place] [address] WBC (Bld) [#/Vol] 10.5 10*3/uL Normal 3.6-10.7 [facility] Comment on above: Performed By: #### L [id number] #### Tafe Lecturer: SHARLA FINNEY ([id number]) [facility] ([facility]) [address] [place] [address] COMPREHENSIVE METABOLIC PANE Micah 06-22-2023 Albumin [Mass/Vol] 3.9 g/dL Normal 3.5-5.0 [facility] Comment on above: Performed By: #### L [id number] #### Tafe Lecturer: SHARLA FINNEY ([id number]) [facility] ([facility]) [address] [place] [address] ALP [Catalytic activity/Vol] 80 U/L Normal 38-126 [facility] Comment on above: Performed By: #### L [id number] #### Tafe Lecturer: SHARLA FINNEY ([id number]) [facility] ([facility]) [address] [place] [address] ALT [Catalytic activity/Vol] 29 U/L Normal 0-49 [facility] Comment on above: Performed By: #### L [id number] #### Tafe Lecturer: SHARLA FINNEY ([id number]) [facility] ([facility]) [address] [place] [address] Anion gap [Moles/Vol] 5 mmol/L Normal 3-13 [facility] Comment on above: Performed By: #### L [id number] #### Tafe Lecturer: SHARLA FINNEY ([id number]) [facility] [address] [place] [address] AST [Catalytic activity/Vol] 26 U/L Normal 15-46 [facility] Comment on above: Performed By: #### L [id number] #### Tafe Lecturer: SHARLA FINNEY ([id number]) [facility] [address] [place] [address] Bilirubin [Mass/Vol] 0.7 mg/dL Normal 0.2-1.3 [facility] Comment on above: Performed By: #### L [id number] #### Tafe Lecturer: SHARLA FINNEY ([id number]) [facility] ([facility]) [address] [place] [address] Calcium [Mass/Vol] 9.3 mg/dL Normal 8.4-10.4 [facility] Comment on above: Performed By: #### L [id number] #### Tafe Lecturer: SHARLA FINNEY ([id number]) [facility] [address] [place] [address] [place] Chloride [Moles/Vol] 101 mmol/L Normal 98-107 [facility] Comment on above: Performed By: #### L [id number] #### Tafe Lecturer: SHARLA FINNEY ([id number]) [facility] [facility] [address] [place] [address] [place] CO2 [Moles/Vol] 30 mmol/L Normal 22-30 [facility] Comment on above: Performed By: #### L [id number] #### Tafe Lecturer: SHARLA FINNEY ([id number]) [facility] ([facility]) [address] [place] [address] [place] Creatinine [Mass/Vol] 0.89 mg/dL Normal 0.66-1.25 [facility] Comment on above: Performed By: #### L [id number] #### Tafe Lecturer: SHARLA FINNEY ([id number]) [facility] ([facility]) [address] [place] [address] GLOMERULAR FILTRATION RATE ML/MIN/1.73 SQ M.PREDICTED >90.0 Normal >60.0 [facility] Comment on above: Result Comment: Calc ulation based on the Chronic Kidney Disease Epidemiology Collaboration (CKD-EPI) equation refit without adjustment for race Performed By: #### L [id number] #### Tafe Lecturer: SHARLA FINNEY ([id number]) [facility] ([facility]) [address] [place] [address] Glucose [Mass/Vol] 188 mg/dL High 70-100 [facility] Comment on above: Performed By: #### L [id number] #### Tafe Lecturer: SHARLA FINNEY ([id number]) [facility]) [address] [place] [address] Potassium [Moles/Vol] 4.4 mmol/L Normal 3.5-5.1 [facility] Comment on above: Performed By: #### L [id number] #### Tafe Lecturer: SHARLA FINNEY ([id number]) [facility]) [address] [place] [address] Protein [Mass/Vol] 7.1 g/dL Normal 6.3-8.2 [facility] Comment on above: Performed By: #### L [id number] #### Tafe Lecturer: SHARLA FINNEY ([phone]) [facility]) [address] [place] [address] Sodium [Moles/Vol] 136 mmol/L Normal 135-145 [facility] Comment on above: Performed By: #### L [id number] #### Tafe Lecturer: SHARLA FINNEY ([id number]) [facility]) [address] [place] [address] [place] Urea nitrogen [Mass/Vol] 17 mg/dL Normal 9-20 [facility] Comment on above: Performed By: #### L [id number] #### Tafe Lecturer: SHARLA FINNEY ([phone]) [facility] ([facility]) [address] [place] [address] CT Abdomen and Pelvis W cont rast Constantine 06-22-2023 Radiology Study observation (narrative) [facility] CULTURE ANAEROBICon 06-22-19 24 CULTURE ANAEROBIC ANAEROBIC CULTURE Reference No growth at 5 days [ S = SUSCEPTIBLE R = RESISTANT I = INTERMEDIATE S-DD = Susceptible-dose dependent NS = Non-susceptible NO = No Interpretation ] Normal [facility] Comment on above: Performed By: #### L [id number] #### Tafe Lecturer: SHARLA FINNEY ([phone]) [facility]) [address] [place] [address] CULTURE, AEROBIC BACTERIA WI TH GRAM STAINon [...] Non-susceptible NO = No Interpretation ] Normal [facility] Comment on above: Performed By: #### L [id number] #### Tafe Lecturer: SHARLA FINNEY ([phone]) [facility]) [address] [place] [address] Comprehensive metabolic 1998 panelon 06-22-2023 Albumin [Mass/Vol] 3.9 g/dL 3.5 - 5.0 g/dL [facility] ALP [Catalytic activity/Vol] 80 U/L 38 - 126 U/L [facility] ALT [Catalytic activity/Vol] 29 U/L 0 - 49 U/L [facility] Anion gap [Moles/Vol] 5 mmol/L 3 - 13 mmol/L [facility] AST [Catalytic activity/Vol] 26 U/L 15 - 46 U/L [facility] Bilirubin [Mass/Vol] 0.7 mg/dL 0.2 - 1 .3 mg/dL [facility] Calcium [Mass/Vol] 9.3 mg/dL 8.4 - 10. 4 mg/dL [facility] Chloride [Moles/Vol] 101 mmol/L 98 - 10 7 mmol/L [facility] CO2 [Moles/Vol] 30 mmol/L 22 - 30 mmol/L [facility] Creatinine [Mass/Vol] 0.89 mg/dL 0.66 - 1.25 mg/dL [facility] GFR/1.73 sq M.predicted MDRD (S/P/Bld) [Vol rate/Area] - PINF [facility] Comment on above: Calculation based on the Chronic Kidney Disease Epidemiology Collaboration (CKD-EPI) equation refit without adjustment for race Glucose [Mass/Vol] 188 mg/dL High 70 - 100 mg/dL [facility] Interpretation and review of laboratory results Abnormal [facility] Potassium [Moles/Vol] 4.4 mmol/L 3.5 - 5.1 mmol/L [facility] Protein [Mass/Vol] 7.1 g/dL 6.3 - 8.2 g/dL [facility] Sodium [Moles/Vol] 136 mmol/L 135 - 145 mmol/L [facility] Urea nitrogen [Mass/Vol] 17 mg/dL 9 - 20 mg/dL [facility] ED Provider Noteon ED Provider Note [...] Date Anxiety Ataxia Atherosclerosis Bipolar 1 disorder ([facility]) Chronic migraine w/o aura, not intractable, w/o stat migr Chronic pain Chronic ulcer of left calf (CMS/HCC) ([facility]) Concussion with loss of consciousness, with loc of unspecified duration, sequela ([facility]) Constipation Contracture, right hand Depression Difficulty walking Dorsopathy Dysphagia Dysphonia Edema GERD (gastroesophageal reflux disease) Headache Hemiplegia (CMS/HCC) ([facility]) affecting right dominant side History of pancreatitis 10/28/2022 Hyperlipidemia Hypertension Hypokalemia Insomnia Intracranial injury ([facility]) Lack of coordination Mixed receptive-expressive language disorder Muscle weakness Neuropathy Non-pressure chronic ulcer of other part of right foot with fat layer exposed ([facility]) Pancreatic abscess 07/14/2022 Pancreatitis PVD (peripheral vascular disease) ([facility]) Reduced mobility Repeated falls SIRS (systemic inflammatory response syndrome) ([facility]) TBI (traumatic brain injury) ([facility]) Venous insufficiency SURGICAL HISTORY Past Surgical History: [...] Historical Med cholecalciferol (Vitamin D3) 1.25 MG (57197 UT) tablet Take by mouth 1 (one) [...] not crush (more content not included)... Normal [facility] ED Provider Note Emergency Department Encounter [facility] ED Patient: Moises Madrid : 1960 Date of Evaluation: 06/22/2023 ED Supervising Physician: Fred Holloway MD I independently examined and evaluated Moises Madrid. This will serve as my Supervisory note as the primary care nurse practitioner of record and shared attestation. I did [...] for clarification.) Fred Holloway MD [employer] Fred Holloway MD 06/23/23 1812 Normal [facility] LIPASEon 06-22-2023 Lipase [Catalytic activity/Vol] 138 U/L Normal 23-300 [facility] Comment on above: Performed By: #### L [id number] #### Tafe Lecturer: SHARLA FINNEY ([id number]) [facility] ([facility]) [address] [place] [address] Laboratory - Chemistry and C hemistry - challengeon 06-22-2023 Troponin I.cardiac [Mass/Vol] ng/mL NINF - 0.034 ng/mL [facility] Lipase [Catalytic activity/Vol] 138 U/L 23 - 300 U/L [facility] Lipase [Catalytic activity/V ol]on 06-22-2023 Interpretation and review of laboratory results Normal [facility] No Panel Informationon 06-21 [facility] Progress Noteon 06-22-2023 Progress Note Culture is positive but resistant to antibiotics prescribed at discharge. Positive for Pseudomonas. Antibiotic needs to be changed to ciprofloxacin 500 mg twice daily for 7 days, please contact patient and inform them of the results and send in prescription. Normal [facility] Progress Note Culture result reviewed. Awaiting sensitivity results Normal [facility] TROPONIN Ion 06-22-2023 Troponin I.cardiac [Mass/Vol] ng/mL Normal <0.034 [facility] Comment on above: Result Comment: [facility] [place] COMMENTS: Patients with high levels of Biotin oral intake (ie >5 mg/day) may have falsely decreased Troponin levels. Performed By: #### L [id number] #### Tafe Lecturer: SHARLA FINNEY ([phone]) [facility] ([facility]) [address] [place] [address] Troponin I.cardiac [Mass/Vol ]on 06-22-2023 Interpretation and review of laboratory results Normal [facility] Patients with high levels of Biotin oral intake (ie >5 mg/day) may have falsely decreased Troponin levels. [facility] Basophil percentageOrdered B y: Demetrius Fenton on 06-12-2023 Chloride [Moles/Vol] 105 mmol/L 98-107 [facility] Glucose [Mass/Vol] 118 mg/dL 74-106 [facility] Comment on above: Fasting Glucose resu lt from 100 to 125 mg/dL suggests IMPAIRED HOMEOSTASIS per A.D.A. criteria. Hemoglobin (Bld) [Mass/Vol] 15.1 g/dL 13.0-16.5 [facility] Potassium [Moles/Vol] 4.3 mmol/L 3.5-5.1 [facility] Sodium [Moles/Vol] 136 mmol/L 136-145 [facility] WBC (Bld) [#/Vol] 7.2 10*3/uL 4.4-11.0 [facility] Determination of erythrocyte mean corpuscular volume (MCV)Ordered By: Demetrius Fenton on 06-12-2023 MCV (RBC) [Entitic vol] 89.3 fL 80-94 [facility] Erythrocyte distribution wid th ratioOrdered By: Demetrius Fenton on 06-12-2023 Erythrocyte distribution width (RBC) [Ratio] 13.2 % 11.6-14.6 [facility] Erythrocyte distribution wid th standard deviationOrdered By: Demetrius Fenton on 06-12-2023 Erythrocyte distribution width (RBC) [Entitic vol] 41.8 fL 35.1-43.9 [facility] Hematocrit Auto (Bld) [Volum e fraction]Ordered By: Demetrius Fenton on 06-12-2023 Hematocrit (Bld) [Volume fraction] 45.2 % 40-54 [facility] Laboratory - Chemistry and C hemistry - challengeOrdered By: Demetrius Fenton on 06-12-2023 CO2 [Moles/Vol] 27.0 mmol/L 21.0-32.0 [facility] Urea nitrogen/Creatinine [Mass ratio] 15.7 mg/mg 10-20 [facility] Laboratory - Hematology and Cell countsOrdered By: Demetrius Fenton on 06-12-2023 MCH (RBC) [Entitic mass] 29.8 pg 27.0-32.0 [facility] MCHC (RBC) [Mass/Vol] 33.4 g/dL 32-36 [facility] Platelet mean volume (Bld) [Entitic vol] 11.2 fL 6.2-12.0 [facility] Platelets (Bld) [#/Vol] 154 10*3/uL 150-450 [facility] No Panel InformationOrdered By: Demetrius Fenton on 06-12-2023 Estimated GFR (MDRD) Amer 90 mL/min >60 [facility] Comment on above: GFR Calc Estimated GFR (MDRD) Non-Af Amer 74 mL/min >60 [facility] Comment on above: Non- GFR Calc RBC Auto (Bld) [#/Vol]Ordere d By: Demetrius Fenton on 06-12-2023 RBC (Bld) [#/Vol] 5.06 10*6/uL 4.6-6.2 [facility] Serum or plasma calcium roseanne urement (mass/volume)Ordered By: Demetrius Fenton on 06-12-2023 Calcium [Mass/Vol] 9.5 mg/dL 8.5-10.1 [facility] Serum or plasma creatinine m easurement (mass/volume)Ordered By: Demetrius Fenton on 06-12-2023 Creatinine [Mass/Vol] 1.08 mg/dL 0.70-1.30 [facility] Comment on above: The validity of the calculated GFR & GFRAA in patients over 70 years has not been determined. Clinical correlation is essential. Serum or plasma urea nitroge n measurement (mass/volume)Ordered By: Demetrius Fenton on 06-12-2023 Urea nitrogen [Mass/Vol] 17 mg/dL 7-18 [facility] Thin prep Papanicolaou smear with manual screeningOrdered By: Demetrius Fenton on 06-12-2023 Thin prep Papanicolaou smear with manual screening 4 5-15 [facility] Whole blood hemoglobin A1c/t otal hemoglobin ratio (mass fraction)Ordered By: Demetrius Fenton on 06-12-2023 HbA1c (Bld) [Mass fraction] 6.5 % 3.8-5.6 [facility] Comment on above: Normal < 5.7 % Predi abetic 5.7 - 6.4 % Diabetic >or= 6.5 % Please note range changes. Basophil percentageOrdered B y: Demetrius Fenton on 03-14-2023 Bilirubin [Mass/Vol] 0.90 mg/dL 0.20-1.00 [facility] Comment on above: For patients on eltr ombopag therapy, use of [place] TBIL is not recommended. Chloride [Moles/Vol] 104 mmol/L 98-107 [facility] Glucose [Mass/Vol] 131 mg/dL 74-106 [facility] Comment on above: Fasting Glucose resu lt greater than or equal to 126 mg/dL suggests DIABETES MELLITUS per A.D.A. criteria. Potassium [Moles/Vol] 4.8 mmol/L 3.5-5.1 [facility] Protein [Mass/Vol] 6.9 g/dL 6.4-8.2 [facility] Sodium [Moles/Vol] 137 mmol/L 136-145 [facility] WBC (Bld) [#/Vol] 6.4 10*3/uL 4.4-11.0 [facility] Blood erythrocytes count (nu mber/volume)Ordered By: Demetrius Fenton on 03-14-2023 RBC (Bld) [#/Vol] 4.77 10*6/uL 4.6-6.2 [facility] Blood hemoglobin measurement (mass/volume)Ordered By: Demetrius Fenton on 03-14-2023 Hemoglobin (Bld) [Mass/Vol] 14.3 g/dL 13.0-16.5 [facility] Blood platelet mean volumeOr dered By: Demetrius Fenton on 03-14-2023 Platelet mean volume (Bld) [Entitic vol] 11.3 fL 6.2-12.0 [facility] Determination of erythrocyte mean corpuscular volume (MCV)Ordered By: Demetrius Fenton on 03-14-2023 MCV (RBC) [Entitic vol] 90.8 fL 80-94 [facility] Hematocrit Auto (Bld) [Volum e fraction]Ordered By: Demetrius Fenton on 03-14-2023 Hematocrit (Bld) [Volume fraction] 43.3 % 40-54 [facility] Laboratory - Chemistry and C hemistry - challengeOrdered By: Demetrius Fenton on 03-14-2023 ALP [Catalytic activity/Vol] 85 U/L 45-117 [facility] ALT [Catalytic activity/Vol] 36 U/L 16-61 [facility] CO2 [Moles/Vol] 29.0 mmol/L 21.0-32.0 [facility] Globulin (S) [Mass/Vol] 3.6 g/dL 2.2-4.2 [facility] Urea nitrogen/Creatinine [Mass ratio] 19.6 mg/mg 10-20 [facility] Laboratory - Hematology and Cell countsOrdered By: Demetrius Fenton on 03-14-2023 Erythrocyte distribution width (RBC) [Entitic vol] 42.7 fL 35.1-43.9 [facility] Erythrocyte distribution width (RBC) [Ratio] 13.1 % 11.6-14.6 [facility] MCH (RBC) [Entitic mass] 30.0 pg 27.0-32.0 [facility] MCHC Auto (RBC) [Mass/Vol]Or dered By: Demetrius Fenton on 03-14-2023 MCHC (RBC) [Mass/Vol] 33.0 g/dL 32-36 [facility] No Panel InformationOrdered By: Demetrius Fenton on 03-14-2023 Estimated GFR (MDRD) Amer 91 mL/min >60 [facility] Comment on above: GFR Calc Estimated GFR (MDRD) Non-Af Amer 75 mL/min >60 [facility] Comment on above: Non- GFR Calc Valproic Acid (Depakene) Level 30 ug/mL 50-100 [facility] Platelets bldOrdered By: Miriam Fenton on 03-14-2023 Platelets (Bld) [#/Vol] 158 10*3/uL 150-450 [facility] Serum or plasma albumin roseanne urement (mass/volume)Ordered By: Demetrius Fenton on 03-14-2023 Albumin [Mass/Vol] 3.3 g/dL 3.2-5.0 [facility] Serum or plasma albumin/glob ulin mass ratioOrdered By: Demetrius Fenton on 03-14-2023 Albumin/Globulin [Mass ratio] 0.9 {ratio} 0.9-2.4 [facility] Serum or plasma calcium roseanne urement (mass/volume)Ordered By: Demetrius Fenton on 03-14-2023 Calcium [Mass/Vol] 8.7 mg/dL 8.5-10.1 [facility] Serum or plasma creatinine m easurement (mass/volume)Ordered By: Demetrius Fenton on 03-14-2023 Creatinine [Mass/Vol] 1.07 mg/dL 0.70-1.30 [facility] Comment on above: The validity of the calculated GFR & GFRAA in patients over 70 years has not been determined. Clinical correlation is essential. Serum or plasma urea nitroge n measurement (mass/volume)Ordered By: Demetrius Fenton on 03-14-2023 Urea nitrogen [Mass/Vol] 21 mg/dL 7-18 [facility] Thin prep Papanicolaou smear with manual screeningOrdered By: Demetrius eFnton on 03-14-2023 Thin prep Papanicolaou smear with manual screening 23 U/L 15-37 [facility] Thin prep Papanicolaou smear with manual screening 4 5-15 [facility] Basophil percentageOrdered B y: Demetrius Fenton on 03-13-2023 Cholesterol [Mass/Vol] 139 mg/dL <200 [facility] Comment on above: <200 mg/dL Desirable 200-240 mg/dL Borderline >240 mg/dL High Risk Triglyceride [Mass/Vol] 168 mg/dL <199 [facility] Comment on above: The drugs N-Acetylcy steine and Metamizole may falsely depress this assay.Serum Triglycerides Reference Interval Normal <150 mg/dL Borderline high 150 - 199 mg/dL High 200 - 499 mg/dL Very High > or = 500 mg/dL Serum or plasma cholesterol in HDL measurement (mass/volume)Ordered By: Demetrius Fenton on 03-13-2023 Cholesterol in HDL [Mass/Vol] 49 mg/dL >40 [facility] Comment on above: The drugs N-Acetylcy steine and Metamizole may falsely depress this assay. Reference Range HDL <40 mg/dL Low HDL Cholesterol HDL >or= 60 mg/dL High HDL Cholesterol Serum or plasma cholesterol in VLDL measurement (mass/volume)Ordered By: Demetrius Fenton on 03-13-2023 Cholesterol in VLDL [Mass/Vol] 34 mg/dL 5-40 [facility] Serum or plasma low density lipoprotein (LDL) cholesterol measurement (mass/volume)Ordered By: Demetrius Fenton on 03-13-2023 Cholesterol in LDL [Mass/Vol] 56 mg/dL 0-130 [facility] Basophil percentageOrdered B y: Demetrius Fenton on 02-09-2023 Bilirubin [Mass/Vol] 0.50 mg/dL 0.20-1.00 [facility] Comment on above: For patients on eltr ombopag therapy, use of [place] TBIL is not recommended. Chloride [Moles/Vol] 104 mmol/L 98-107 [facility] Glucose [Mass/Vol] 128 mg/dL 74-106 [facility] Comment on above: Fasting Glucose resu lt greater than or equal to 126 mg/dL suggests DIABETES MELLITUS per A.D.A. criteria. Potassium [Moles/Vol] 4.6 mmol/L 3.5-5.1 [facility] Protein [Mass/Vol] 7.2 g/dL 6.4-8.2 [facility] Sodium [Moles/Vol] 136 mmol/L 136-145 [facility] WBC (Bld) [#/Vol] 7.9 10*3/uL 4.4-11.0 [facility] Blood erythrocytes count (nu mber/volume)Ordered By: Demetrius Fenton on 02-09-2023 RBC (Bld) [#/Vol] 4.93 10*6/uL 4.6-6.2 [facility] Blood hemoglobin measurement (mass/volume)Ordered By: Demetrius Fenton on 02-09-2023 Hemoglobin (Bld) [Mass/Vol] 14.8 g/dL 13.0-16.5 [facility] Blood platelet mean volumeOr dered By: Demetrius Fenton on 02-09-2023 Platelet mean volume (Bld) [Entitic vol] 11.3 fL 6.2-12.0 [facility] Determination of erythrocyte mean corpuscular volume (MCV)Ordered By: Demetrius Fenton on 02-09-2023 MCV (RBC) [Entitic vol] 88.0 fL 80-94 [facility] Hematocrit Auto (Bld) [Volum e fraction]Ordered By: Demetrius Fenton on 02-09-2023 Hematocrit (Bld) [Volume fraction] 43.4 % 40-54 [facility] Laboratory - Chemistry and C hemistry - challengeOrdered By: Demetrius Fenton on 02-09-2023 ALP [Catalytic activity/Vol] 92 U/L 45-117 [facility] ALT [Catalytic activity/Vol] 31 U/L 16-61 [facility] CO2 [Moles/Vol] 26.0 mmol/L 21.0-32.0 [facility] Globulin (S) [Mass/Vol] 3.8 g/dL 2.2-4.2 [facility] Urea nitrogen/Creatinine [Mass ratio] 16.3 mg/mg 10-20 [facility] Laboratory - Hematology and Cell countsOrdered By: Demetrius Fenton on 02-09-2023 Erythrocyte distribution width (RBC) [Entitic vol] 41.9 fL 35.1-43.9 [facility] Erythrocyte distribution width (RBC) [Ratio] 13.2 % 11.6-14.6 [facility] MCH (RBC) [Entitic mass] 30.0 pg 27.0-32.0 [facility] MCHC Auto (RBC) [Mass/Vol]Or dered By: Demetrius Fenton on 02-09-2023 MCHC (RBC) [Mass/Vol] 34.1 g/dL 32-36 [facility] No Panel InformationOrdered By: Demetrius Fenton on 02-09-2023 Estimated GFR (MDRD) Amer 100 mL/min >60 [facility] Comment on above: GFR Calc Estimated GFR (MDRD) Non-Af Amer 83 mL/min >60 [facility] Comment on above: Non- GFR Calc Platelets bldOrdered By: Miriam Fenton on 02-09-2023 Platelets (Bld) [#/Vol] 193 10*3/uL 150-450 [facility] Serum or plasma albumin roseanne urement (mass/volume)Ordered By: Demetrius Fenton on 02-09-2023 Albumin [Mass/Vol] 3.4 g/dL 3.2-5.0 [facility] Serum or plasma albumin/glob ulin mass ratioOrdered By: Demetrius Fenton on 02-09-2023 Albumin/Globulin [Mass ratio] 0.9 {ratio} 0.9-2.4 [facility] Serum or plasma calcium roseanne urement (mass/volume)Ordered By: Demetrius Fenton on 02-09-2023 Calcium [Mass/Vol] 9.2 mg/dL 8.5-10.1 [facility] Serum or plasma creatinine m easurement (mass/volume)Ordered By: Demetrius Fenton on 02-09-2023 Creatinine [Mass/Vol] 0.98 mg/dL 0.70-1.30 [facility] Comment on above: The validity of the calculated GFR & GFRAA in patients over 70 years has not been determined. Clinical correlation is essential. Serum or plasma urea nitroge n measurement (mass/volume)Ordered By: Demetrius Fenton on 02-09-2023 Urea nitrogen [Mass/Vol] 16 mg/dL 7-18 [facility] Thin prep Papanicolaou smear with manual screeningOrdered By: Demetrius Fenton on 02-09-2023 Thin prep Papanicolaou smear with manual screening 20 U/L 15-37 [facility] Thin prep Papanicolaou smear with manual screening 6 5-15 [facility] Basophil percentageOrdered B y: Demetrius Fenton on 01-09-2023 Chloride [Moles/Vol] 104 mmol/L 98-107 [facility] Glucose [Mass/Vol] 169 mg/dL 74-106 [facility] Comment on above: Fasting Glucose resu lt greater than or equal to 126 mg/dL suggests DIABETES MELLITUS per A.D.A. criteria. Potassium [Moles/Vol] 4.1 mmol/L 3.5-5.1 [facility] Sodium [Moles/Vol] 139 mmol/L 136-145 [facility] WBC (Bld) [#/Vol] 6.8 10*3/uL 4.4-11.0 [facility] Blood erythrocytes count (nu mber/volume)Ordered By: Demetrius Fenton on 01-09-2023 RBC (Bld) [#/Vol] 4.61 10*6/uL 4.6-6.2 [facility] Blood hemoglobin measurement (mass/volume)Ordered By: Demetrius Fenton on 01-09-2023 Hemoglobin (Bld) [Mass/Vol] 13.6 g/dL 13.0-16.5 [facility] Blood platelet mean volumeOr dered By: Demetrius Fenton on 01-09-2023 Platelet mean volume (Bld) [Entitic vol] 11.8 fL 6.2-12.0 [facility] Determination of erythrocyte mean corpuscular volume (MCV)Ordered By: Demetrius Fenton on 01-09-2023 MCV (RBC) [Entitic vol] 90.7 fL 80-94 [facility] Hematocrit Auto (Bld) [Volum e fraction]Ordered By: Demetrius Fenton on 01-09-2023 Hematocrit (Bld) [Volume fraction] 41.8 % 40-54 [facility] Laboratory - Chemistry and C hemistry - challengeOrdered By: Demetrius Fenton on 01-09-2023 CO2 [Moles/Vol] 29.0 mmol/L 21.0-32.0 [facility] Urea nitrogen/Creatinine [Mass ratio] 19.3 mg/mg 10-20 [facility] Laboratory - Hematology and Cell countsOrdered By: Demetrius Fenton on 01-09-2023 Erythrocyte distribution width (RBC) [Entitic vol] 42.6 fL 35.1-43.9 [facility] Erythrocyte distribution width (RBC) [Ratio] 13.2 % 11.6-14.6 [facility] [facility] M[facility] (RBC) [Entitic mass] 29.5 pg 27.0-32.0 [facility] MCHC Auto (RBC) [Mass/Vol]Or dered By: Demetrius Fenton on 01-09-2023 MCHC (RBC) [Mass/Vol] 32.5 g/dL 32-36 [facility] No Panel InformationOrdered By: Demetrius Fenton on 01-09-2023 Estimated GFR (MDRD) Amer 89 mL/min >60 [facility] Comment on above: GFR Calc Estimated GFR (MDRD) Non-Af Amer 73 mL/min >60 [facility] Comment on above: Non- GFR Calc Prostate Specific Antigen Screen 0.59 ng/mL 0.00-4.00 [facility] Comment on above: This test was perfor med using the TPSA assay method for the[employer]ension chemistry system. Values obtained with differentassay methods cannot be used interchangably.When changing PSA assays in the course of monitoring apatient, additional sequential testing should be carriedout to confirm baseline values. Platelets bldOrdered By: Miriam Fenton on 01-09-2023 Platelets (Bld) [#/Vol] 166 10*3/uL 150-450 [facility] Serum or plasma calcium roseanne urement (mass/volume)Ordered By: Demetrius Fenton on 01-09-2023 Calcium [Mass/Vol] 8.8 mg/dL 8.5-10.1 [facility] Serum or plasma creatinine m easurement (mass/volume)Ordered By: Demetrius Fenton on 01-09-2023 Creatinine [Mass/Vol] 1.09 mg/dL 0.70-1.30 [facility] Comment on above: The validity of the calculated GFR & GFRAA in patients over 70 years has not been determined. Clinical correlation is essential. Serum or plasma urea nitroge n measurement (mass/volume)Ordered By: Demetrius Fenton on 01-09-2023 Urea nitrogen [Mass/Vol] 21 mg/dL 7-18 [facility] Thin prep Papanicolaou smear with manual screeningOrdered By: Demetrius Fenton on 01-09-2023 Thin prep Papanicolaou smear with manual screening 6 5-15 [facility] No Panel InformationOrdered By: Gunnar Cummings on 01-02-2023 Prostate Specific Antigen Screen 0.62 ng/mL 0.00-4.00 [facility] Comment on above: This test was perfor med using the TPSA assay method for then[employer] chemistry system. Values obtained with differentassay methods cannot be used interchangably.When changing PSA assays in the course of monitoring apatient, additional sequential testing should be carriedout to confirm baseline values. Valproic Acid (Depakene) Level 35 ug/mL 50-100 [facility] Bacteria identified Cx Nom ( Wound)Ordered By: Gunnar Cummings on 12-14-2022 Wound Culture Pseudomonas aeruginosa [facility] Wound Culture Proteus mirabilis [facility] Wound Culture Meth. resistant Stap h. aureus [facility] Gram stain for investigation of transfusion reactionOrdered By: Gunnar Cummings on 12-14-2022 Microscopic observation Gram stain Nom (Unsp spec) [facility] Basophil percentageOrdered B y: Demetrius Fenton on 11-28-2022 Chloride [Moles/Vol] 104 mmol/L 98-107 [facility] Glucose [Mass/Vol] 162 mg/dL 74-106 [facility] Comment on above: Fasting Glucose resu lt greater than or equal to 126 mg/dL suggests DIABETES MELLITUS per A.D.A. criteria. Potassium [Moles/Vol] 4.3 mmol/L 3.5-5.1 [facility] Sodium [Moles/Vol] 136 mmol/L 136-145 [facility] WBC (Bld) [#/Vol] 7.3 10*3/uL 4.4-11.0 [facility] Blood erythrocytes count (nu mber/volume)Ordered By: Demetrius Fenton on 11-28-2022 RBC (Bld) [#/Vol] 4.84 10*6/uL 4.6-6.2 [facility] Blood hemoglobin measurement (mass/volume)Ordered By: Demetrius Fenton on 11-28-2022 Hemoglobin (Bld) [Mass/Vol] 14.2 g/dL 13.0-16.5 [facility] Blood platelet mean volumeOr dered By: Demetrius Fenton on 11-28-2022 Platelet mean volume (Bld) [Entitic vol] 11.6 fL 6.2-12.0 [facility] Determination of erythrocyte mean corpuscular volume (MCV)Ordered By: Demetrius Fenton on 11-28-2022 MCV (RBC) [Entitic vol] 89.7 fL 80-94 [facility] Hematocrit Auto (Bld) [Volum e fraction]Ordered By: Demetrius Fenton on 11-28-2022 Hematocrit (Bld) [Volume fraction] 43.4 % 40-54 [facility] Laboratory - Chemistry and C hemistry - challengeOrdered By: Demetrius Fenton on 11-28-2022 CO2 [Moles/Vol] 25.0 mmol/L 21.0-32.0 [facility] Urea nitrogen/Creatinine [Mass ratio] 20.2 mg/mg 10-20 [facility] Laboratory - Hematology and Cell countsOrdered By: Demetrius Fenton on 11-28-2022 Erythrocyte distribution width (RBC) [Entitic vol] 43.9 fL 35.1-43.9 [facility] Erythrocyte distribution width (RBC) [Ratio] 13.4 % 11.6-14.6 [facility] MCH (RBC) [Entitic mass] 29.3 pg 27.0-32.0 [facility] MCHC Auto (RBC) [Mass/Vol]Or dered By: Demetrius Fenton on 11-28-2022 MCHC (RBC) [Mass/Vol] 32.7 g/dL 32-36 [facility] No Panel InformationOrdered By: Demetrius Fenton on 11-28-2022 Estimated GFR (MDRD) Amer 77 mL/min >60 [facility] Comment on above: GFR Calc Estimated GFR (MDRD) Non-Af Amer 63 mL/min >60 [facility] Comment on above: Non- GFR Calc Platelets bldOrdered By: Miriam Fenton on 11-28-2022 Platelets (Bld) [#/Vol] 172 10*3/uL 150-450 [facility] Serum or plasma calcium roseanne urement (mass/volume)Ordered By: Demetrius Fenton on 11-28-2022 Calcium [Mass/Vol] 9.0 mg/dL 8.5-10.1 [facility] Serum or plasma creatinine m easurement (mass/volume)Ordered By: Demetrius Fenton on 11-28-2022 Creatinine [Mass/Vol] 1.24 mg/dL 0.70-1.30 [facility] Comment on above: The validity of the calculated GFR & GFRAA in patients over 70 years has not been determined. Clinical correlation is essential. Serum or plasma urea nitroge n measurement (mass/volume)Ordered By: Demetrius Fenton on 11-28-2022 Urea nitrogen [Mass/Vol] 25 mg/dL -18 [facility] Thin prep Papanicolaou smear with manual screeningOrdered By: Demetrius Fenton on 11-28-2022 Thin prep Papanicolaou smear with manual screening 7 - [facility] No Panel InformationOrdered By: Demetrius Fenton on 11-21-2022 Valproic Acid (Depakene) Level 35 ug/mL 50-100 [facility] Basophil percentageOrdered B y: Demetrius Fenton on 10-24-2022 Chloride [Moles/Vol] 104 mmol/L 98-107 [facility] Glucose [Mass/Vol] 101 mg/dL 74-106 [facility] Comment on above: Fasting Glucose resu lt from 100 to 125 mg/dL suggests IMPAIRED HOMEOSTASIS per A.D.A. criteria. Potassium [Moles/Vol] 4.6 mmol/L 3.5-5.1 [facility] Sodium [Moles/Vol] 137 mmol/L 136-145 [facility] Laboratory - Chemistry and C hemistry - challengeOrdered By: Demetrius Fenton on 10-24-2022 CO2 [Moles/Vol] 29.0 mmol/L 21.0-32.0 [facility] Urea nitrogen/Creatinine [Mass ratio] 17.4 mg/mg 10-20 [facility] No Panel InformationOrdered By: Demetrius Fenton on 10-24-2022 Estimated GFR (MDRD) Amer 79 mL/min >60 [facility] Comment on above: GFR Calc Estimated GFR (MDRD) Non-Af Amer 65 mL/min >60 [facility] Comment on above: Non- GFR Calc Serum or plasma calcium roseanne urement (mass/volume)Ordered By: Demetrius Fenton on 10-24-2022 Calcium [Mass/Vol] 9.0 mg/dL 8.5-10.1 [facility] Serum or plasma creatinine m easurement (mass/volume)Ordered By: Dmeetrius Fenton on 10-24-2022 Creatinine [Mass/Vol] 1.21 mg/dL 0.70-1.30 [facility] Comment on above: The validity of the calculated GFR & GFRAA in patients over 70 years has not been determined. Clinical correlation is essential. Serum or plasma urea nitroge n measurement (mass/volume)Ordered By: Demetrius Fenton on 10-24-2022 Urea nitrogen [Mass/Vol] 21 mg/dL 7-18 [facility] Thin prep Papanicolaou smear with manual screeningOrdered By: Demetrius Fenton on 10-24-2022 Thin prep Papanicolaou smear with manual screening 4 5-15 [facility] Basophil percentageOrdered B y: Demetrius Fenton on 09-12-2022 Cholesterol [Mass/Vol] 107 mg/dL <200 [facility] Comment on above: <200 mg/dL Desirable 200-240 mg/dL Borderline >240 mg/dL High Risk Triglyceride [Mass/Vol] 243 mg/dL <199 [facility] Comment on above: The drugs N-Acetylcy steine and Metamizole may falsely depress this assay.Serum Triglycerides Reference Interval Normal <150 mg/dL Borderline high 150 - 199 mg/dL High 200 - 499 mg/dL Very High > or = 500 mg/dL WBC (Bld) [#/Vol] 9.1 10*3/uL 4.4-11.0 [facility] Blood erythrocytes count (nu mber/volume)Ordered By: Demetrius Fenton on 09-12-2022 RBC (Bld) [#/Vol] 4.59 10*6/uL 4.6-6.2 [facility] Blood hemoglobin measurement (mass/volume)Ordered By: Demetrius Fenton on 09-12-2022 Hemoglobin (Bld) [Mass/Vol] 13.7 g/dL 13.0-16.5 [facility] Blood platelet mean volumeOr dered By: Demetrius Fenton on 09-12-2022 Platelet mean volume (Bld) [Entitic vol] 10.6 fL 6.2-12.0 [facility] Determination of erythrocyte mean corpuscular volume (MCV)Ordered By: Demetrius Fenton on 09-12-2022 MCV (RBC) [Entitic vol] 88.9 fL 80-94 [facility] Hematocrit Auto (Bld) [Volum e fraction]Ordered By: Demetrius Fenton on 09-12-2022 Hematocrit (Bld) [Volume fraction] 40.8 % 40-54 [facility] Laboratory - Hematology and Cell countsOrdered By: Demetrius Fenton on 09-12-2022 Erythrocyte distribution width (RBC) [Entitic vol] 43.8 fL 35.1-43.9 [facility] Erythrocyte distribution width (RBC) [Ratio] 14.0 % 11.6-14.6 [facility] MCH (RBC) [Entitic mass] 29.8 pg 27.0-32.0 [facility] MCHC Auto (RBC) [Mass/Vol]Or dered By: Demetrius Fenton on 09-12-2022 MCHC (RBC) [Mass/Vol] 33.6 g/dL 32-36 [facility] No Panel InformationOrdered By: Demetrius Fenton on 09-12-2022 Valproic Acid (Depakene) Level 29 ug/mL 50-100 [facility] Platelets bldOrdered By: Miriam Fenton on 09-12-2022 Platelets (Bld) [#/Vol] 188 10*3/uL 150-450 [facility] Serum or plasma cholesterol in HDL measurement (mass/volume)Ordered By: Demetrius Fenton on 09-12-2022 Cholesterol in HDL [Mass/Vol] 41 mg/dL >40 [facility] Comment on above: The drugs N-Acetylcy steine and Metamizole may falsely depress this assay. Reference Range HDL <40 mg/dL Low HDL Cholesterol HDL >or= 60 mg/dL High HDL Cholesterol Serum or plasma cholesterol in VLDL measurement (mass/volume)Ordered By: Demetrius Fenton on 09-12-2022 Cholesterol in VLDL [Mass/Vol] 49 mg/dL 5-40 [facility] Serum or plasma low density lipoprotein (LDL) cholesterol measurement (mass/volume)Ordered By: Demetrius Fenton on 09-12-2022 Cholesterol in LDL [Mass/Vol] 17 mg/dL 0-130 [facility] Bacteria identified Cx Nom ( Wound)Ordered By: Demetrius Fenton on 09-10-2022 Wound Culture Pseudomonas aeruginosa [facility] Gram stain for investigation of transfusion reactionOrdered By: Demetrius Fenton on 09-08-2022 Microscopic observation Gram stain Nom (Unsp spec) [facility] Bacteria identified Cx Nom ( Wound)Ordered By: Demetrius Fenton on 09-07-2022 Wound Culture Pseudomonas aeruginosa [facility] Gram stain for investigation of transfusion reactionOrdered By: Demetrius Fenton on 09-07-2022 Microscopic observation Gram stain Nom (Unsp spec) [facility] No Panel InformationOrdered By: Demetrius Fenton on 08-22-2022 Valproic Acid (Depakene) Level 40 ug/mL 50-100 [facility] Basophil percentageOrdered B y: Demetrius Fenton on 08-01-2022 Amylase [Catalytic activity/Vol] 50 U/L 25-115 [facility] Bilirubin [Mass/Vol] 0.50 mg/dL 0.20-1.00 [facility] Comment on above: For patients on eltr ombopag therapy, use of Dimension [place] TBIL is not recommended. Protein [Mass/Vol] 6.4 g/dL 6.4-8.2 [facility] Direct bilirubinOrdered By: Demetrius Fenton on 08-01-2022 Bilirubin.direct [Mass/Vol] 0.14 mg/dL 0.00-0.30 [facility] Laboratory - Chemistry and C hemistry - challengeOrdered By: Demetrius Fenton on 08-01-2022 ALP [Catalytic activity/Vol] 62 U/L 45-117 [facility] ALT [Catalytic activity/Vol] 26 U/L 16-61 [facility] Globulin (S) [Mass/Vol] 3.3 g/dL 2.2-4.2 [facility] Lipase [Catalytic activity/Vol] 45 U/L 13-75 [facility] Comment on above: Please note:LIPASE r evised reference range effective 22. New Lipase methodology. Expected to produce lower values than the previous assay method. NEW Reference Range: 13 - 75 U/L Serum or plasma albumin roseanne urement (mass/volume)Ordered By: Demetrius Fenton on 08-01-2022 Albumin [Mass/Vol] 3.1 g/dL 3.2-5.0 [facility] Thin prep Papanicolaou smear with manual screeningOrdered By: Demetrius Fenton on 08-01-2022 Thin prep Papanicolaou smear with manual screening 18 U/L 15-37 [facility] Basophil percentageOrdered B y: Demetrius Fenton on 07-28-2022 Chloride [Moles/Vol] 107 mmol/L 98-107 [facility] Glucose [Mass/Vol] 95 mg/dL 74-106 [facility] Potassium [Moles/Vol] 4.4 mmol/L 3.5-5.1 [facility] Comment on above: Slight Hemolysis, Re sult may be falsely increased. Sodium [Moles/Vol] 136 mmol/L 136-145 [facility] WBC (Bld) [#/Vol] 7.2 10*3/uL 4.4-11.0 [facility] Blood erythrocytes count (nu mber/volume)Ordered By: Demetrius Fenton on 07-28-2022 RBC (Bld) [#/Vol] 3.82 10*6/uL 4.6-6.2 [facility] Blood hemoglobin measurement (mass/volume)Ordered By: Demetrius Fenton on 07-28-2022 Hemoglobin (Bld) [Mass/Vol] 11.6 g/dL 13.0-16.5 [facility] Blood platelet mean volumeOr dered By: Demetrius Fenton on 07-28-2022 Platelet mean volume (Bld) [Entitic vol] 11.1 fL 6.2-12.0 [facility] Determination of erythrocyte mean corpuscular volume (MCV)Ordered By: Demetrius Fenton on 07-28-2022 MCV (RBC) [Entitic vol] 93.5 fL 80-94 [facility] Hematocrit Auto (Bld) [Volum e fraction]Ordered By: Demetrius Fenton on 07-28-2022 Hematocrit (Bld) [Volume fraction] 35.7 % 40-54 [facility] Laboratory - Chemistry and C hemistry - challengeOrdered By: Demetrius Fenton on 07-28-2022 CO2 [Moles/Vol] 25.0 mmol/L 21.0-32.0 [facility] Urea nitrogen/Creatinine [Mass ratio] 13.1 mg/mg 10-20 [facility] Laboratory - Hematology and Cell countsOrdered By: Demetrius Fenton on 07-28-2022 Erythrocyte distribution width (RBC) [Entitic vol] 47.2 fL 35.1-43.9 [facility] Erythrocyte distribution width (RBC) [Ratio] 14.1 % 11.6-14.6 [facility] MCH (RBC) [Entitic mass] 30.4 pg 27.0-32.0 [facility] MCHC Auto (RBC) [Mass/Vol]Or dered By: Demetrius Fenton on 07-28-2022 MCHC (RBC) [Mass/Vol] 32.5 g/dL 32-36 [facility] No Panel InformationOrdered By: Demetrius Fenton on 07-28-2022 Estimated GFR (MDRD) Amer 99 mL/min >60 [facility] Comment on above: GFR Calc Estimated GFR (MDRD) Non-Af Amer 82 mL/min >60 [facility] Comment on above: Non- GFR Calc Platelets bldOrdered By: Miriam Fenton on 07-28-2022 Platelets (Bld) [#/Vol] 204 10*3/uL 150-450 [facility] Serum or plasma calcium roseanne urement (mass/volume)Ordered By: Demetrius eFnton on 07-28-2022 Calcium [Mass/Vol] 8.9 mg/dL 8.5-10.1 [facility] Serum or plasma creatinine m easurement (mass/volume)Ordered By: Demetrius Fenton on 07-28-2022 Creatinine [Mass/Vol] 0.99 mg/dL 0.70-1.30 [facility] Comment on above: The validity of the calculated GFR & GFRAA in patients over 70 years has not been determined. Clinical correlation is essential. Serum or plasma urea nitroge n measurement (mass/volume)Ordered By: Demetrius Fenton on 07-28-2022 Urea nitrogen [Mass/Vol] 13 mg/dL 7-18 [facility] Thin prep Papanicolaou smear with manual screeningOrdered By: Demetrius Fenton on 07-28-2022 Thin prep Papanicolaou smear with manual screening 4 5-15 [facility] Culture, urineOrdered By: Travis Finch on 07-21-2022 Bacteria identified Cx Nom (U) Escherichia coli [facility] Bilirubin Test strip Ql (U)O rdered By: Demetrius Fenton on 07-18-2022 Bilirubin Ql (U) Negative Negative [facility] Culture, urineOrdered By: Travis Finch on 07-18-2022 Bacteria identified Cx Nom (U) Escherichia coli [facility] Ketones Test strip Ql (U)Ord ered By: Demetrius Fenton on 07-18-2022 Ketones Ql (U) 15 mg/dl Negative [facility] Nitrite Test strip Ql (U)Ord ered By: Demetrius Fenton on 07-18-2022 Nitrite Ql (U) Positive Negative [facility] No Panel InformationOrdered By: Demetrius Fenton on 07-18-2022 Valproic Acid (Depakene) Level 42 ug/mL 50-100 [facility] Protein Test strip Ql (U)Ord ered By: Demetrius Fenton on 07-18-2022 Protein Ql (U) 100 mg/dl Negative [facility] Urine blood detectionOrdered By: Demetrius Fenton on 07-18-2022 RBC Ql (U) 250 /ul Negative [facility] Urine clarityOrdered By: Miriam Fenton on 07-18-2022 Clarity (U) Turbid Clear [facility] Urine color determinationOrd ered By: Demetrius Fenton on 07-18-2022 Color (U) Brown Yellow [facility] Urine glucose detectionOrder ed By: Demetrius Fenton on 07-18-2022 Glucose Ql (U) Normal mg/dl Normal [facility] Urine leukocyte esterase det ection by dipstickOrdered By: Demetrius Fenton on 07-18-2022 Leukocyte esterase Test strip Ql (U) 500 /ul Negative [facility] Urine pHOrdered By: Demetrius astorga on 07-18-2022 pH (U) 5.0 [pH] 5.0 - 8.0 [facility] Urine specific gravity measu rementOrdered By: Demetrius Fenton on 07-18-2022 Specific gravity (U) [Rel density] 1.020 1.002-1.030 [facility] Urobilinogen Auto test strip Ql (U)Ordered By: Demetrius Fenton on 07-18-2022 Urobilinogen Ql (U) 4 mg/dl Normal [facility] Basophil percentageOrdered B y: Gunnar Cummings on 06-30-2022 Amylase [Catalytic activity/Vol] 62 U/L 25-115 [facility] Bilirubin [Mass/Vol] 0.60 mg/dL 0.20-1.00 [facility] Comment on above: For patients on eltr ombopag therapy, use of Dimension [place] TBIL is not recommended. Chloride [Moles/Vol] 103 mmol/L 98-107 [facility] Glucose [Mass/Vol] 120 mg/dL 74-106 [facility] Comment on above: Fasting Glucose resu lt from 100 to 125 mg/dL suggests IMPAIRED HOMEOSTASIS per A.D.A. criteria. Potassium [Moles/Vol] 4.5 mmol/L 3.5-5.1 [facility] Protein [Mass/Vol] 6.2 g/dL 6.4-8.2 [facility] Sodium [Moles/Vol] 139 mmol/L 136-145 [facility] WBC (Bld) [#/Vol] 6.2 10*3/uL 4.4-11.0 [facility] Blood erythrocytes count (nu mber/volume)Ordered By: Gunnar Cummings on 06-30-2022 RBC (Bld) [#/Vol] 3.78 10*6/uL 4.6-6.2 [facility] Blood hemoglobin measurement (mass/volume)Ordered By: Gunnar Cummings on 06-30-2022 Hemoglobin (Bld) [Mass/Vol] 11.7 g/dL 13.0-16.5 [facility] Blood platelet mean volumeOr dered By: Gunnar Cummings on 06-30-2022 Platelet mean volume (Bld) [Entitic vol] 10.6 fL 6.2-12.0 [facility] Determination of erythrocyte mean corpuscular volume (MCV)Ordered By: Gunnar Cummings on 06-30-2022 MCV (RBC) [Entitic vol] 94.2 fL 80-94 [facility] Hematocrit Auto (Bld) [Volum e fraction]Ordered By: Gunnar Cummings on 06-30-2022 Hematocrit (Bld) [Volume fraction] 35.6 % 40-54 [facility] Laboratory - Chemistry and C hemistry - challengeOrdered By: Gunnar Cummings on 06-30-2022 ALP [Catalytic activity/Vol] 77 U/L 45-117 [facility] ALT [Catalytic activity/Vol] 24 U/L 16-61 [facility] CO2 [Moles/Vol] 28.0 mmol/L 21.0-32.0 [facility] Globulin (S) [Mass/Vol] 3.5 g/dL 2.2-4.2 [facility] Lipase [Catalytic activity/Vol] 777 U/L 73-393 [facility] Urea nitrogen/Creatinine [Mass ratio] 15.4 mg/mg 10-20 [facility] Laboratory - Hematology and Cell countsOrdered By: Gunnar Cummings on 06-30-2022 Erythrocyte distribution width (RBC) [Entitic vol] 46.9 fL 35.1-43.9 [facility] Erythrocyte distribution width (RBC) [Ratio] 14.0 % 11.6-14.6 [facility] MCH (RBC) [Entitic mass] 31.0 pg 27.0-32.0 [facility] MCHC Auto (RBC) [Mass/Vol]Or dered By: Gunnar Cummings on 06-30-2022 MCHC (RBC) [Mass/Vol] 32.9 g/dL 32-36 [facility] No Panel InformationOrdered By: Gunnar Cummings on 06-30-2022 Estimated GFR (MDRD) Amer 110 mL/min >60 [facility] Comment on above: GFR Calc Estimated GFR (MDRD) Non-Af Amer 91 mL/min >60 [facility] Comment on above: Non- GFR Calc Platelets bldOrdered By: Ar Cummings on 06-30-2022 Platelets (Bld) [#/Vol] 277 10*3/uL 150-450 [facility] Serum or plasma albumin roseanne urement (mass/volume)Ordered By: Gunnar Cummings on 06-30-2022 Albumin [Mass/Vol] 2.7 g/dL 3.2-5.0 [facility] Serum or plasma albumin/glob ulin mass ratioOrdered By: Gunnar Cummings on 06-30-2022 Albumin/Globulin [Mass ratio] 0.8 {ratio} 0.9-2.4 [facility] Serum or plasma calcium roseanne urement (mass/volume)Ordered By: Gunnar Cummings on 06-30-2022 Calcium [Mass/Vol] 8.9 mg/dL 8.5-10.1 [facility] Serum or plasma creatinine m easurement (mass/volume)Ordered By: Gunnar Cummings on 06-30-2022 Creatinine [Mass/Vol] 0.91 mg/dL 0.70-1.30 [facility] Comment on above: The validity of the calculated GFR & GFRAA in patients over 70 years has not been determined. Clinical correlation is essential. Serum or plasma urea nitroge n measurement (mass/volume)Ordered By: Gunnar Cummings on 06-30-2022 Urea nitrogen [Mass/Vol] 14 mg/dL 7-18 [facility] Thin prep Papanicolaou smear with manual screeningOrdered By: Gunnar Cummings on 06-30-2022 Thin prep Papanicolaou smear with manual screening 15 U/L 15-37 [facility] Thin prep Papanicolaou smear with manual screening 8 5-15 [facility] Cobalamin (Vitamin B12) [Mas s/Vol]on 06-23-2022 Interpretation and review of laboratory results Normal [facility] Comprehensive metabolic 1998 panelon 06-23-2022 Albumin [Mass/Vol] 3.1 g/dL Low 3.5 - 5.0 g/dL [facility] ALP [Catalytic activity/Vol] 80 U/L 38 - 126 U/L [facility] ALT [Catalytic activity/Vol] 29 U/L 0 - 49 U/L [facility] Anion gap [Moles/Vol] 0 mmol/L Low 3 - 13 mmol/L [facility] AST [Catalytic activity/Vol] 37 U/L 15 - 46 U/L [facility] Bilirubin [Mass/Vol] 0.4 mg/dL 0.2 - 1 .3 mg/dL [facility] Calcium [Mass/Vol] 8.3 mg/dL Low 8.4 - 10. 4 mg/dL [facility] Chloride [Moles/Vol] 100 mmol/L 98 - 10 7 mmol/L [facility] CO2 [Moles/Vol] 32 mmol/L High 22 - 30 mmol/L [facility] Creatinine [Mass/Vol] 0.70 mg/dL 0.66 - 1.25 mg/dL [facility] GFR/1.73 sq M.predicted MDRD (S/P/Bld) [Vol rate/Area] - PINF [facility] Glucose [Mass/Vol] 169 mg/dL High 70 - 100 mg/dL [facility] Interpretation and review of laboratory results Abnormal [facility] Potassium [Moles/Vol] 3.6 mmol/L 3.5 - 5.1 mmol/L [facility] Protein [Mass/Vol] 6.1 g/dL Low 6.3 - 8.2 g/dL [facility] Sodium [Moles/Vol] 131 mmol/L Low 135 - 145 mmol/L [facility] Urea nitrogen [Mass/Vol] 17 mg/dL 9 - 20 mg/dL [facility] Ferritin [Mass/Vol]on 2022 Interpretation and review of laboratory results Normal [facility] Iron and Iron binding capaci ty panelon 06-23-2022 Interpretation and review of laboratory results Normal [facility] Iron [Mass/Vol] 83 ug/dL 49 - 181 ug/dL [facility] Iron binding capacity [Mass/Vol] 285 ug/dL 261 - 497 ug/dL [facility] Iron saturation [Mass fraction] 29 % 15 - 50 % [facility] Laboratory - Chemistry and C hemistry - challengeon 06-23-2022 Cobalamin (Vitamin B12) [Mass/Vol] 734 pg/mL 239 - 931 pg/mL [facility] Ferritin [Mass/Vol] 420 ng/mL 18 - 464 ng/mL [facility] Transferrin [Mass/Vol] 232 mg/dL 206 - 381 mg/dL [facility] Glucose [Mass/Vol] 200 mg/dL High 70 - 100 mg/dL [facility] No Panel Informationon 06-23 Interpretation and review of laboratory results Normal [facility] Interpretation and review of laboratory results Abnormal [facility] CBC W Auto Differential pane l (Bld)on 06-22-2022 Erythrocyte distribution width (RBC) [Ratio] 13.9 % 11.5 - 14.5 % [facility] Hematocrit (Bld) [Volume fraction] 34.7 % Low 40.0 - 52.0 % [facility] Hemoglobin (Bld) [Mass/Vol] 12.1 g/dL Low 13.0 - 18.0 g/dL [facility] MCH (RBC) [Entitic mass] 31.1 pg 26.0 - 34.0 pg [facility] MCHC (RBC) [Mass/Vol] 34.8 % 32.0 - 36.0 % [facility] MCV (RBC) [Entitic vol] 89.3 fL 80.0 - 98.0 fL [facility] Nucleated RBC/100 WBC (Bld) [Ratio] 0.2 % [facility] Platelet mean volume (Bld) [Entitic vol] 7.8 fL 7.4 - 12.4 fL [facility] Platelets (Bld) [#/Vol] 377 10*3/uL 140 - 440 10*3/uL [facility] RBC (Bld) [#/Vol] 3.89 10*6/uL Low 4.40 - 5.9 0 10*6/uL [facility] WBC (Bld) [#/Vol] 13.0 10*3/uL High 3.6 - 10.7 10*3/uL [facility] Comprehensive metabolic 1998 panelon 06-22-2022 Albumin [Mass/Vol] 3.0 g/dL Low 3.5 - 5.0 g/dL [facility] ALP [Catalytic activity/Vol] 72 U/L 38 - 126 U/L [facility] ALT [Catalytic activity/Vol] 27 U/L 0 - 49 U/L [facility] Anion gap [Moles/Vol] 1 mmol/L Low 3 - 13 mmol/L [facility] AST [Catalytic activity/Vol] 58 U/L High 15 - 46 U/L [facility] Bilirubin [Mass/Vol] 0.6 mg/dL 0.2 - 1 .3 mg/dL [facility] Calcium [Mass/Vol] 8.0 mg/dL Low 8.4 - 10. 4 mg/dL [facility] Chloride [Moles/Vol] 96 mmol/L Low 98 - 10 7 mmol/L [facility] CO2 [Moles/Vol] 32 mmol/L High 22 - 30 mmol/L [facility] Creatinine [Mass/Vol] 0.66 mg/dL 0.66 - 1.25 mg/dL [facility] GFR/1.73 sq M.predicted MDRD (S/P/Bld) [Vol rate/Area] - PINF [facility] Glucose [Mass/Vol] 204 mg/dL High 70 - 100 mg/dL [facility] Potassium [Moles/Vol] 3.8 mmol/L 3.5 - 5.1 mmol/L [facility] Protein [Mass/Vol] 6.1 g/dL Low 6.3 - 8.2 g/dL [facility] Sodium [Moles/Vol] 129 mmol/L Low 135 - 145 mmol/L [facility] Urea nitrogen [Mass/Vol] 17 mg/dL 9 - 20 mg/dL [facility] HbA1c (Bld) [Mass fraction]o n 06-22-2022 Glucose [Mass/Vol] 151 mg/dL [facility] HbA1c (Bld) [Mass/Vol] 6.9 % High NINF - 5.7 % [facility] Interpretation and review of laboratory results Abnormal [facility] Laboratory - Chemistry and C hemistry - challengeon 06-22-2022 Lipase [Catalytic activity/Vol] 1218 U/L High 23 - 300 U/L [facility] Magnesium [Mass/Vol] 2.1 mg/dL 1.6 - 2 .3 mg/dL [facility] Magnesium [Mass/Vol]on 06-22 Interpretation and review of laboratory results Normal [facility] Manual differential performe d Ql (Bld)on 06-22-2022 Band form neutrophils (Bld) [#/Vol] 0.3 10*3/uL High NINF - 0.0 10*3/uL [facility] Band form neutrophils/100 WBC (Bld) 2 % High NINF - 0 % [facility] Bands Manual 2 [facility] Cells Counted Total (Bld) [#] 100 {cells} [facility] Eosinophils (Bld) [#/Vol] 0.8 10*3/uL High 0.0 - 0.5 10*3/uL [facility] Eosinophils Manual 6 High 0 - 1 [facility] Eosinophils/100 WBC (Bld) 6 % 1 - 6 % [facility] Leukocyte morphology finding Nom (Bld) Normal [facility] Lymphocytes (Bld) [#/Vol] 2.3 10*3/uL 1.0 - 4.3 10*3/uL [facility] Lymphocytes Manual 18 [facility] Lymphocytes/100 WBC (Bld) 18 % Low 20 - 40 % [facility] Metamyelocytes (Bld) [#/Vol] 0.1 10*3/uL High NINF - 0.0 10*3/uL [facility] Metamyelocytes Manual 1 [facility] Metamyelocytes/100 WBC (Bld) 1 % High NINF - 0 % [facility] Monocytes (Bld) [#/Vol] 0.4 10*3/uL 0.0 - 0.8 10*3/uL [facility] Monocytes Manual 3 [facility] alth Monocytes/100 WBC (Bld) 3 % 2 - 10 % [facility] Myelocytes (Bld) [#/Vol] 0.7 10*3/uL High NINF - 0.0 10*3/uL [facility] Myelocytes Manual 5 [facility] ealth Myelocytes/100 WBC (Bld) 5 % High NINF - 0 % [facility] Neutrophils (Bld) [#/Vol] 8.7 10*3/uL High 1.8 - 7.0 10*3/uL [facility] Neutrophils Manual 65 [facility] Platelet morphology finding Nom (Bld) Normal [facility] Polychromasia LM Ql (Bld) Slight Abnormal (none) [facility] Segmented neutrophils/100 WBC (Bld) 65 % 40 - 80 % [facility] WBC corrected for nucl RBC (Bld) [#/Vol] 13.00 10*3/uL High 3.60 - 10.70 10*3/uL [facility] No Panel Informationon 06-22 Interpretation and review of laboratory results Abnormal [facility] Interpretation and review of laboratory results Abnormal [facility] Bacteria identified Cx Nom ( Bld)on 06-21-2022 Interpretation and review of laboratory results Normal [facility] CBC W Auto Differential pane l (Bld)on 06-21-2022 Erythrocyte distribution width (RBC) [Ratio] 13.8 % 11.5 - 14.5 % [facility] Hematocrit (Bld) [Volume fraction] 36.1 % Low 40.0 - 52.0 % [facility] Hemoglobin (Bld) [Mass/Vol] 12.4 g/dL Low 13.0 - 18.0 g/dL [facility] MCH (RBC) [Entitic mass] 30.9 pg 26.0 - 34.0 pg [facility] MCHC (RBC) [Mass/Vol] 34.4 % 32.0 - 36.0 % [facility] MCV (RBC) [Entitic vol] 89.8 fL 80.0 - 98.0 fL [facility] Nucleated RBC/100 WBC (Bld) [Ratio] 0.1 % [facility] Platelet mean volume (Bld) [Entitic vol] 8.2 fL 7.4 - 12.4 fL [facility] Platelets (Bld) [#/Vol] 401 10*3/uL 140 - 440 10*3/uL [facility] RBC (Bld) [#/Vol] 4.02 10*6/uL Low 4.40 - 5.9 0 10*6/uL [facility] WBC (Bld) [#/Vol] 16.2 10*3/uL High 3.6 - 10.7 10*3/uL [facility] Comprehensive metabolic 1998 panelon 06-21-2022 Albumin [Mass/Vol] 3.2 g/dL Low 3.5 - 5.0 g/dL [facility] ALP [Catalytic activity/Vol] 78 U/L 38 - 126 U/L [facility] ALT [Catalytic activity/Vol] 30 U/L 0 - 49 U/L [facility] Anion gap [Moles/Vol] 0 mmol/L Low 3 - 13 mmol/L [facility] AST [Catalytic activity/Vol] 56 U/L High 15 - 46 U/L [facility] Bilirubin [Mass/Vol] 0.7 mg/dL 0.2 - 1 .3 mg/dL [facility] Calcium [Mass/Vol] 8.0 mg/dL Low 8.4 - 10. 4 mg/dL [facility] Chloride [Moles/Vol] 93 mmol/L Low 98 - 10 7 mmol/L [facility] CO2 [Moles/Vol] 33 mmol/L High 22 - 30 mmol/L [facility] Creatinine [Mass/Vol] 0.74 mg/dL 0.66 - 1.25 mg/dL [facility] GFR/1.73 sq M.predicted MDRD (S/P/Bld) [Vol rate/Area] - PINF [facility] Glucose [Mass/Vol] 252 mg/dL High 70 - 100 mg/dL [facility] Potassium [Moles/Vol] 4.0 mmol/L 3.5 - 5.1 mmol/L [facility] Protein [Mass/Vol] 6.5 g/dL 6.3 - 8.2 g/dL [facility] Sodium [Moles/Vol] 126 mmol/L Low 135 - 145 mmol/L [facility] Urea nitrogen [Mass/Vol] 19 mg/dL 9 - 20 mg/dL [facility] Laboratory - Chemistry and C hemistry - challengeon 06-21-2022 Lipase [Catalytic activity/Vol] 1352 U/L High 23 - 300 U/L [facility] Magnesium [Mass/Vol] 2.0 mg/dL 1.6 - 2 .3 mg/dL [facility] Laboratory - Microbiology an d Antimicrobial susceptibilityon 06-21-2022 Bacteria identified Cx Nom (Bld) No growth at 5 days [facility] Magnesium [Mass/Vol]on 06-21 Interpretation and review of laboratory results Normal [facility] Manual differential performe d Ql (Bld)on 06-21-2022 Cells Counted Total (Bld) [#] 100 {cells} [facility] Eosinophils (Bld) [#/Vol] 0.3 10*3/uL 0.0 - 0.5 10*3/uL [facility] Eosinophils Manual 2 High 0 - 1 [facility] Eosinophils/100 WBC (Bld) 2 % 1 - 6 % [facility] Lymphocytes (Bld) [#/Vol] 3.2 10*3/uL 1.0 - 4.3 10*3/uL [facility] Lymphocytes Manual 20 [facility] Lymphocytes/100 WBC (Bld) 20 % 20 - 40 % [facility] Metamyelocytes (Bld) [#/Vol] 0.5 10*3/uL High NINF - 0.0 10*3/uL [facility] Metamyelocytes Manual 3 [facility] Metamyelocytes/100 WBC (Bld) 3 % High NINF - 0 % [facility] Monocytes (Bld) [#/Vol] 0.5 10*3/uL 0.0 - 0.8 10*3/uL [facility] Monocytes Manual 3 [facility] alth Monocytes/100 WBC (Bld) 3 % 2 - 10 % [facility] Myelocytes (Bld) [#/Vol] 0.3 10*3/uL High NINF - 0.0 10*3/uL [facility] Myelocytes Manual 2 [facility] ealth Myelocytes/100 WBC (Bld) 2 % High NINF - 0 % [facility] Neutrophils (Bld) [#/Vol] 11.3 10*3/uL High 1.8 - 7.0 10*3/uL [facility] Neutrophils Manual 70 [facility] Neutrophils.vacuolated LM Ql (Bld) Present Abnormal (none) [facility] Platelet morphology finding Nom (Bld) Normal [facility] RBC morphology finding Nom (Bld) Normal [facility] Segmented neutrophils/100 WBC (Bld) 70 % 40 - 80 % [facility] WBC corrected for nucl RBC (Bld) [#/Vol] 16.20 10*3/uL High 3.60 - 10.70 10*3/uL [facility] No Panel Informationon 06-21 Interpretation and review of laboratory results Abnormal [facility] Interpretation and review of laboratory results Abnormal [facility] CBC W Auto Differential pane l (Bld)on 06-20-2022 Basophils (Bld) [#/Vol] 0.2 10*3/uL 0.0 - 0.2 10*3/uL [facility] Basophils/100 WBC (Bld) 0.9 % 0.0 - 2.0 % [facility] Eosinophils (Bld) [#/Vol] 0.6 10*3/uL High 0.0 - 0.5 10*3/uL [facility] Eosinophils/100 WBC (Bld) 3.1 % 1.0 - 6.0 % [facility] [employer] Erythrocyte distribution width (RBC) [Ratio] 13.7 % 11.5 - 14.5 % [facility] [employer] Hematocrit (Bld) [Volume fraction] 38.9 % Low 40.0 - 52.0 % [facility] Hemoglobin (Bld) [Mass/Vol] 13.2 g/dL 13.0 - 18.0 g/dL [facility] Interpretation and review of laboratory results Abnormal [facility] Lymphocytes (Bld) [#/Vol] 3.2 10*3/uL 1.0 - 4.3 10*3/uL [facility] Lymphocytes/100 WBC (Bld) 17.9 % Low 20.0 - 40.0 % [facility] MCH (RBC) [Entitic mass] 30.5 pg 26.0 - 34.0 pg [facility] [employer] MCHC (RBC) [Mass/Vol] 33.9 % 32.0 - 36.0 % [facility] MCV (RBC) [Entitic vol] 90.0 fL 80.0 - 98.0 fL [facility] Monocytes (Bld) [#/Vol] 1.1 10*3/uL High 0.0 - 0.8 10*3/uL [facility] Monocytes/100 WBC (Bld) 6.1 % 2.0 - 10.0 % [facility] Neutrophils (Bld) [#/Vol] 12.8 10*3/uL High 1.8 - 7.0 10*3/uL [facility] Neutrophils/100 WBC (Bld) 72.0 % 40.0 - 80.0 % [facility] Nucleated RBC/100 WBC (Bld) [Ratio] 0.0 % [facility] Platelet mean volume (Bld) [Entitic vol] 7.9 fL 7.4 - 12.4 fL [facility] Platelets (Bld) [#/Vol] 389 10*3/uL 140 - 440 10*3/uL [facility] RBC (Bld) [#/Vol] 4.33 10*6/uL Low 4.40 - 5.9 0 10*6/uL [facility] WBC (Bld) [#/Vol] 17.8 10*3/uL High 3.6 - 10.7 10*3/uL [facility] Comprehensive metabolic 1998 panelon 06-20-2022 Albumin [Mass/Vol] 3.3 g/dL Low 3.5 - 5.0 g/dL [facility] ALP [Catalytic activity/Vol] 97 U/L 38 - 126 U/L [facility] ALT [Catalytic activity/Vol] 37 U/L 0 - 49 U/L [facility] Anion gap [Moles/Vol] 3 mmol/L 3 - 13 mmol/L [facility] AST [Catalytic activity/Vol] 43 U/L 15 - 46 U/L [facility] Bilirubin [Mass/Vol] 0.6 mg/dL 0.2 - 1 .3 mg/dL [facility] Calcium [Mass/Vol] 8.2 mg/dL Low 8.4 - 10. 4 mg/dL [facility] Chloride [Moles/Vol] 90 mmol/L Low 98 - 10 7 mmol/L [facility] CO2 [Moles/Vol] 33 mmol/L High 22 - 30 mmol/L [facility] Creatinine [Mass/Vol] 0.81 mg/dL 0.66 - 1.25 mg/dL [facility] GFR/1.73 sq M.predicted MDRD (S/P/Bld) [Vol rate/Area] - PINF [facility] Glucose [Mass/Vol] 241 mg/dL High 70 - 100 mg/dL [facility] Potassium [Moles/Vol] 3.8 mmol/L 3.5 - 5.1 mmol/L [facility] Protein [Mass/Vol] 6.7 g/dL 6.3 - 8.2 g/dL [facility] Sodium [Moles/Vol] 126 mmol/L Low 135 - 145 mmol/L [facility] Urea nitrogen [Mass/Vol] 22 mg/dL High 9 - 20 mg/dL [facility] Laboratory - Chemistry and C hemistry - challengeon 06-20-2022 Lipase [Catalytic activity/Vol] 1528 U/L High 23 - 300 U/L [facility] Magnesium [Mass/Vol] 2.2 mg/dL 1.6 - 2 .3 mg/dL [facility] Magnesium [Mass/Vol]on 06-20 Interpretation and review of laboratory results Normal [facility] No Panel Informationon 06-20 Interpretation and review of laboratory results Abnormal [facility] CBC W Auto Differential pane l (Bld)on 06-19-2022 Erythrocyte distribution width (RBC) [Ratio] 13.9 % 11.5 - 14.5 % [facility] Hematocrit (Bld) [Volume fraction] 38.2 % Low 40.0 - 52.0 % [facility] Hemoglobin (Bld) [Mass/Vol] 13.0 g/dL 13.0 - 18.0 g/dL [facility] MCH (RBC) [Entitic mass] 30.4 pg 26.0 - 34.0 pg [facility] MCHC (RBC) [Mass/Vol] 34.0 % 32.0 - 36.0 % [facility] MCV (RBC) [Entitic vol] 89.6 fL 80.0 - 98.0 fL [facility] Nucleated RBC/100 WBC (Bld) [Ratio] 0.1 % [facility] Platelet mean volume (Bld) [Entitic vol] 8.1 fL 7.4 - 12.4 fL [facility] Platelets (Bld) [#/Vol] 325 10*3/uL 140 - 440 10*3/uL [facility] RBC (Bld) [#/Vol] 4.26 10*6/uL Low 4.40 - 5.9 0 10*6/uL [facility] WBC (Bld) [#/Vol] 19.0 10*3/uL High 3.6 - 10.7 10*3/uL [facility] Comprehensive metabolic 1998 panelon 06-19-2022 Albumin [Mass/Vol] 3.2 g/dL Low 3.5 - 5.0 g/dL [facility] ALP [Catalytic activity/Vol] 100 U/L 38 - 126 U/L [facility] ALT [Catalytic activity/Vol] 36 U/L 0 - 49 U/L [facility] Anion gap [Moles/Vol] 1 mmol/L Low 3 - 13 mmol/L [facility] AST [Catalytic activity/Vol] 43 U/L 15 - 46 U/L [facility] Bilirubin [Mass/Vol] 0.6 mg/dL 0.2 - 1 .3 mg/dL [facility] Calcium [Mass/Vol] 7.9 mg/dL Low 8.4 - 10. 4 mg/dL [facility] Chloride [Moles/Vol] 90 mmol/L Low 98 - 10 7 mmol/L [facility] CO2 [Moles/Vol] 34 mmol/L High 22 - 30 mmol/L [facility] Creatinine [Mass/Vol] 0.85 mg/dL 0.66 - 1.25 mg/dL [facility] GFR/1.73 sq M.predicted MDRD (S/P/Bld) [Vol rate/Area] - PINF [facility] Glucose [Mass/Vol] 250 mg/dL High 70 - 100 mg/dL [facility] Potassium [Moles/Vol] 3.9 mmol/L 3.5 - 5.1 mmol/L [facility] Protein [Mass/Vol] 6.6 g/dL 6.3 - 8.2 g/dL [facility] Sodium [Moles/Vol] 126 mmol/L Low 135 - 145 mmol/L [facility] Urea nitrogen [Mass/Vol] 24 mg/dL High 9 - 20 mg/dL [facility] Laboratory - Chemistry and C hemistry - challengeon 06-19-2022 Lipase [Catalytic activity/Vol] 1500 U/L High 23 - 300 U/L [facility] Magnesium [Mass/Vol] 2.2 mg/dL 1.6 - 2 .3 mg/dL [facility] Magnesium [Mass/Vol]on 06-19 Interpretation and review of laboratory results Normal [facility] Manual differential performe d Ql (Bld)on 06-19-2022 Band form neutrophils (Bld) [#/Vol] 0.2 10*3/uL High NINF - 0.0 10*3/uL [facility] Band form neutrophils/100 WBC (Bld) 1 % High NINF - 0 % [facility] Bands Manual 1 [facility] Cells Counted Total (Bld) [#] 100 {cells} [facility] Eosinophils (Bld) [#/Vol] 1.1 10*3/uL High 0.0 - 0.5 10*3/uL [facility] Eosinophils Manual 6 High 0 - 1 [facility] Eosinophils/100 WBC (Bld) 6 % 1 - 6 % [facility] Leukocyte morphology finding Nom (Bld) Normal [facility] Lymphocytes (Bld) [#/Vol] 2.1 10*3/uL 1.0 - 4.3 10*3/uL [facility] Lymphocytes Manual 11 [facility] Lymphocytes/100 WBC (Bld) 11 % Low 20 - 40 % [facility] Monocytes (Bld) [#/Vol] 0.6 10*3/uL 0.0 - 0.8 10*3/uL [facility] Monocytes Manual 3 [facility] alth Monocytes/100 WBC (Bld) 3 % 2 - 10 % [facility] Myelocytes (Bld) [#/Vol] 0.6 10*3/uL High NINF - 0.0 10*3/uL [facility] Myelocytes Manual 3 [facility] ealth Myelocytes/100 WBC (Bld) 3 % High NINF - 0 % [facility] Neutrophils (Bld) [#/Vol] 14.6 10*3/uL High 1.8 - 7.0 10*3/uL [facility] Neutrophils Manual 76 [facility] Platelet morphology finding Nom (Bld) Normal [facility] Polychromasia LM Ql (Bld) Slight Abnormal (none) [facility] Segmented neutrophils/100 WBC (Bld) 76 % 40 - 80 % [facility] WBC corrected for nucl RBC (Bld) [#/Vol] 19.00 10*3/uL High 3.60 - 10.70 10*3/uL [facility] No Panel Informationon 06-19 Interpretation and review of laboratory results Abnormal [facility] Interpretation and review of laboratory results Abnormal [facility] XR Chest Single viewon 06-19 [facility] Radiology Study observation (narrative) [facility] alth CBC W Auto Differential pane l (Bld)on 06-18-2022 Erythrocyte distribution width (RBC) [Ratio] 13.6 % 11.5 - 14.5 % [facility] Hematocrit (Bld) [Volume fraction] 39.5 % Low 40.0 - 52.0 % [facility] Hemoglobin (Bld) [Mass/Vol] 13.3 g/dL 13.0 - 18.0 g/dL [facility] MCH (RBC) [Entitic mass] 30.3 pg 26.0 - 34.0 pg [facility] MCHC (RBC) [Mass/Vol] 33.6 % 32.0 - 36.0 % [facility] MCV (RBC) [Entitic vol] 90.0 fL 80.0 - 98.0 fL [facility] Nucleated RBC/100 WBC (Bld) [Ratio] 0.2 % [facility] Platelet mean volume (Bld) [Entitic vol] 8.1 fL 7.4 - 12.4 fL [facility] Platelets (Bld) [#/Vol] 304 10*3/uL 140 - 440 10*3/uL [facility] RBC (Bld) [#/Vol] 4.39 10*6/uL Low 4.40 - 5.9 0 10*6/uL [facility] WBC (Bld) [#/Vol] 20.7 10*3/uL High 3.6 - 10.7 10*3/uL [facility] Comprehensive metabolic 1998 panelon 06-18-2022 Albumin [Mass/Vol] 3.3 g/dL Low 3.5 - 5.0 g/dL [facility] ALP [Catalytic activity/Vol] 118 U/L 38 - 126 U/L [facility] ALT [Catalytic activity/Vol] 28 U/L 0 - 49 U/L [facility] Anion gap [Moles/Vol] 2 mmol/L Low 3 - 13 mmol/L [facility] AST [Catalytic activity/Vol] 40 U/L 15 - 46 U/L [facility] Bilirubin [Mass/Vol] 0.7 mg/dL 0.2 - 1 .3 mg/dL [facility] Calcium [Mass/Vol] 8.3 mg/dL Low 8.4 - 10. 4 mg/dL [facility] Chloride [Moles/Vol] 93 mmol/L Low 98 - 10 7 mmol/L [facility] CO2 [Moles/Vol] 35 mmol/L High 22 - 30 mmol/L [facility] Creatinine [Mass/Vol] 0.88 mg/dL 0.66 - 1.25 mg/dL [facility] GFR/1.73 sq M.predicted MDRD (S/P/Bld) [Vol rate/Area] - PINF [facility] Glucose [Mass/Vol] 195 mg/dL High 70 - 100 mg/dL [facility] Potassium [Moles/Vol] 3.8 mmol/L 3.5 - 5.1 mmol/L [facility] Protein [Mass/Vol] 6.9 g/dL 6.3 - 8.2 g/dL [facility] Sodium [Moles/Vol] 129 mmol/L Low 135 - 145 mmol/L [facility] Urea nitrogen [Mass/Vol] 22 mg/dL High 9 - 20 mg/dL [facility] Laboratory - Chemistry and C hemistry - challengeon 06-18-2022 Lipase [Catalytic activity/Vol] 1360 U/L High 23 - 300 U/L [facility] Magnesium [Mass/Vol] 2.2 mg/dL 1.6 - 2 .3 mg/dL [facility] Magnesium [Mass/Vol]on 06-18 Interpretation and review of laboratory results Normal [facility] Manual differential performe d Ql (Bld)on 06-18-2022 Band form neutrophils (Bld) [#/Vol] 0.4 10*3/uL High NINF - 0.0 10*3/uL [facility] Band form neutrophils/100 WBC (Bld) 2 % High NINF - 0 % [facility] Bands Manual 2 [facility] Cells Counted Total (Bld) [#] 100 {cells} [facility] Eosinophils (Bld) [#/Vol] 0.2 10*3/uL 0.0 - 0.5 10*3/uL [facility] Eosinophils Manual 1 0 - 1 [facility] Eosinophils/100 WBC (Bld) 1 % 1 - 6 % [facility] Leukocyte morphology finding Nom (Bld) Normal [facility] Lymphocytes (Bld) [#/Vol] 1.7 10*3/uL 1.0 - 4.3 10*3/uL [facility] Lymphocytes Manual 8 [facility] Lymphocytes/100 WBC (Bld) 8 % Low 20 - 40 % [facility] Metamyelocytes (Bld) [#/Vol] 0.4 10*3/uL High NINF - 0.0 10*3/uL [facility] Metamyelocytes Manual 2 [facility] Metamyelocytes/100 WBC (Bld) 2 % High NINF - 0 % [facility] Monocytes (Bld) [#/Vol] 0.8 10*3/uL 0.0 - 0.8 10*3/uL [facility] Monocytes Manual 4 [facility] alth Monocytes/100 WBC (Bld) 4 % 2 - 10 % [facility] Myelocytes (Bld) [#/Vol] 0.4 10*3/uL High NINF - 0.0 10*3/uL [facility] Myelocytes Manual 2 [facility] ealth Myelocytes/100 WBC (Bld) 2 % High NINF - 0 % [facility] Neutrophils (Bld) [#/Vol] 17.2 10*3/uL High 1.8 - 7.0 10*3/uL [facility] Neutrophils Manual 81 [facility] Nucleated RBC/100 WBC (Bld) [Ratio] 1 % [facility] Platelet morphology finding Nom (Bld) Normal [facility] Polychromasia LM Ql (Bld) Slight Abnormal (none) [facility] Segmented neutrophils/100 WBC (Bld) 81 % High 40 - 80 % [facility] Stomatocytes LM Ql (Bld) Slight Abnormal (none) [facility] WBC corrected for nucl RBC (Bld) [#/Vol] 20.70 10*3/uL High 3.60 - 10.70 10*3/uL [facility] No Panel Informationon 06-18 Interpretation and review of laboratory results Abnormal [facility] Interpretation and review of laboratory results Abnormal [facility] SARS-CoV-2 (COVID-19) RNA pa sol FAN+probe (Resp)on 06-18-2022 Interpretation and review of laboratory results Normal [facility] SARS-CoV-2 (COVID-19) RNA FAN+probe Ql (Resp) Not detected Not Detected [facility] XR Chest Single viewon 06-18 [facility] Radiology Study observation (narrative) [facility] alth XR Chest Single viewOrdered By: Brady Douglas on 06-18-2022 [facility] Work Phone: Bacteria identified Aer cx N om (Lower resp)Ordered By: Latoya Diaz on 06-17-2022 Gram Stain Result Moderate Polymorphonuclear leukocytes per low power field Abnormal [facility] Gram Stain Result Moderate Epithelial cells per low power field Abnormal [facility] Gram Stain Result Positive Abnormal [facility] Gram Stain Result Negative Abnormal [facility] Interpretation and review of laboratory results Abnormal [facility] CBC W Auto Differential pane l (Bld)on 06-17-2022 Erythrocyte distribution width (RBC) [Ratio] 13.9 % 11.5 - 14.5 % [facility] Hematocrit (Bld) [Volume fraction] 37.7 % Low 40.0 - 52.0 % [facility] Hemoglobin (Bld) [Mass/Vol] 12.6 g/dL Low 13.0 - 18.0 g/dL [facility] MCH (RBC) [Entitic mass] 30.2 pg 26.0 - 34.0 pg [facility] MCHC (RBC) [Mass/Vol] 33.5 % 32.0 - 36.0 % [facility] MCV (RBC) [Entitic vol] 90.0 fL 80.0 - 98.0 fL [facility] Nucleated RBC/100 WBC (Bld) [Ratio] 0.1 % [facility] Platelet mean volume (Bld) [Entitic vol] 8.0 fL 7.4 - 12.4 fL [facility] Platelets (Bld) [#/Vol] 264 10*3/uL 140 - 440 10*3/uL [facility] RBC (Bld) [#/Vol] 4.18 10*6/uL Low 4.40 - 5.9 0 10*6/uL [facility] WBC (Bld) [#/Vol] 19.8 10*3/uL High 3.6 - 10.7 10*3/uL [facility] Comprehensive metabolic 1998 panelon 06-17-2022 Albumin [Mass/Vol] 3.1 g/dL Low 3.5 - 5.0 g/dL [facility] ALP [Catalytic activity/Vol] 117 U/L 38 - 126 U/L [facility] ALT [Catalytic activity/Vol] 23 U/L 0 - 49 U/L [facility] Anion gap [Moles/Vol] 2 mmol/L Low 3 - 13 mmol/L [facility] AST [Catalytic activity/Vol] 35 U/L 15 - 46 U/L [facility] Bilirubin [Mass/Vol] 0.6 mg/dL 0.2 - 1 .3 mg/dL [facility] Calcium [Mass/Vol] 8.0 mg/dL Low 8.4 - 10. 4 mg/dL [facility] Chloride [Moles/Vol] 95 mmol/L Low 98 - 10 7 mmol/L [facility] CO2 [Moles/Vol] 33 mmol/L High 22 - 30 mmol/L [facility] Creatinine [Mass/Vol] 0.82 mg/dL 0.66 - 1.25 mg/dL [facility] GFR/1.73 sq M.predicted MDRD (S/P/Bld) [Vol rate/Area] - PINF [facility] Glucose [Mass/Vol] 181 mg/dL High 70 - 100 mg/dL [facility] Potassium [Moles/Vol] 3.7 mmol/L 3.5 - 5.1 mmol/L [facility] Protein [Mass/Vol] 6.5 g/dL 6.3 - 8.2 g/dL [facility] Sodium [Moles/Vol] 130 mmol/L Low 135 - 145 mmol/L [facility] Urea nitrogen [Mass/Vol] 19 mg/dL 9 - 20 mg/dL [facility] Laboratory - Chemistry and C hemistry - challengeon 06-17-2022 Lipase [Catalytic activity/Vol] 1078 U/L High 23 - 300 U/L [facility] Magnesium [Mass/Vol] 2.2 mg/dL 1.6 - 2 .3 mg/dL [facility] Laboratory - Microbiology an d Antimicrobial susceptibilityOrdered By: Latoya Diaz on 06-17-2022 Bacteria identified Aer cx Nom (Lower resp) Few respiratory vikram present. [facility] Magnesium [Mass/Vol]on 06-17 Interpretation and review of laboratory results Normal [facility] Story Manual differential performe d Ql (Bld)on 06-17-2022 Band form neutrophils (Bld) [#/Vol] 0.2 10*3/uL High NINF - 0.0 10*3/uL [facility] Band form neutrophils/100 WBC (Bld) 1 % High NINF - 0 % [facility] Bands Manual 1 [facility] Cells Counted Total (Bld) [#] 100 {cells} [facility] Eosinophils (Bld) [#/Vol] 0.2 10*3/uL 0.0 - 0.5 10*3/uL [facility] Eosinophils Manual 1 0 - 1 [facility] Eosinophils/100 WBC (Bld) 1 % 1 - 6 % [facility] Leukocyte morphology finding Nom (Bld) Normal [facility] Lymphocytes (Bld) [#/Vol] 1.0 10*3/uL 1.0 - 4.3 10*3/uL [facility] Lymphocytes Manual 5 [facility] Lymphocytes/100 WBC (Bld) 5 % Low 20 - 40 % [facility] Metamyelocytes (Bld) [#/Vol] 0.6 10*3/uL High NINF - 0.0 10*3/uL [facility] Metamyelocytes Manual 3 [facility] Metamyelocytes/100 WBC (Bld) 3 % High NINF - 0 % [facility] Monocytes (Bld) [#/Vol] 1.4 10*3/uL High 0.0 - 0.8 10*3/uL [facility] Monocytes Manual 7 [facility] alth Monocytes/100 WBC (Bld) 7 % 2 - 10 % [facility] Myelocytes (Bld) [#/Vol] 0.4 10*3/uL High NINF - 0.0 10*3/uL [facility] Myelocytes Manual 2 [facility] ealth Myelocytes/100 WBC (Bld) 2 % High NINF - 0 % [facility] Neutrophils (Bld) [#/Vol] 16.2 10*3/uL High 1.8 - 7.0 10*3/uL [facility] Neutrophils Manual 81 [facility] Ovalocytes LM Ql (Bld) Slight Abnormal (none) [facility] Platelet morphology finding Nom (Bld) Normal [facility] Polychromasia LM Ql (Bld) Slight Abnormal (none) [facility] Segmented neutrophils/100 WBC (Bld) 81 % High 40 - 80 % [facility] Stomatocytes LM Ql (Bld) Slight Abnormal (none) [facility] WBC corrected for nucl RBC (Bld) [#/Vol] 19.80 10*3/uL High 3.60 - 10.70 10*3/uL [facility] No Panel Informationon 06-17 Interpretation and review of laboratory results Abnormal [facility] Interpretation and review of laboratory results Abnormal [facility] RF videography Hypopharynx a nd Esophagus Views for swallowing function W speech and W barium contrast Jerry 06-17-2022 [facility] Radiology Study observation (narrative) [facility] RF videography Hypopharynx a nd Esophagus Views for swallowing function W speech and W barium contrast POOrdered By: Juve Odonnell on 06-17-2022 [facility] Work Phone: XR Chest Single viewon 06-17 [facility] Radiology Study observation (narrative) [facility] CBC W Auto Differential pane l (Bld)on 06-16-2022 Erythrocyte distribution width (RBC) [Ratio] 13.6 % 11.5 - 14.5 % [facility] Hematocrit (Bld) [Volume fraction] 37.8 % Low 40.0 - 52.0 % [facility] Hemoglobin (Bld) [Mass/Vol] 12.6 g/dL Low 13.0 - 18.0 g/dL [facility] MCH (RBC) [Entitic mass] 30.6 pg 26.0 - 34.0 pg [facility] MCHC (RBC) [Mass/Vol] 33.3 % 32.0 - 36.0 % [facility] MCV (RBC) [Entitic vol] 92.0 fL 80.0 - 98.0 fL [facility] Nucleated RBC/100 WBC (Bld) [Ratio] 0.1 % [facility] Platelet mean volume (Bld) [Entitic vol] 7.9 fL 7.4 - 12.4 fL [facility] Platelets (Bld) [#/Vol] 229 10*3/uL 140 - 440 10*3/uL [facility] RBC (Bld) [#/Vol] 4.11 10*6/uL Low 4.40 - 5.9 0 10*6/uL [facility] WBC (Bld) [#/Vol] 19.9 10*3/uL High 3.6 - 10.7 10*3/uL [facility] Comprehensive metabolic 1998 panelon 06-16-2022 Albumin [Mass/Vol] 3.1 g/dL Low 3.5 - 5.0 g/dL [facility] ALP [Catalytic activity/Vol] 114 U/L 38 - 126 U/L [facility] ALT [Catalytic activity/Vol] 25 U/L 0 - 49 U/L [facility] Anion gap [Moles/Vol] 5 mmol/L 3 - 13 mmol/L [facility] AST [Catalytic activity/Vol] 36 U/L 15 - 46 U/L [facility] Bilirubin [Mass/Vol] 0.7 mg/dL 0.2 - 1 .3 mg/dL [facility] Calcium [Mass/Vol] 8.1 mg/dL Low 8.4 - 10. 4 mg/dL [facility] Chloride [Moles/Vol] 95 mmol/L Low 98 - 10 7 mmol/L [facility] CO2 [Moles/Vol] 32 mmol/L High 22 - 30 mmol/L [facility] Creatinine [Mass/Vol] 0.80 mg/dL 0.66 - 1.25 mg/dL [facility] GFR/1.73 sq M.predicted MDRD (S/P/Bld) [Vol rate/Area] - PINF [facility] Glucose [Mass/Vol] 173 mg/dL High 70 - 100 mg/dL [facility] Potassium [Moles/Vol] 4.0 mmol/L 3.5 - 5.1 mmol/L [facility] Protein [Mass/Vol] 6.2 g/dL Low 6.3 - 8.2 g/dL [facility] Sodium [Moles/Vol] 132 mmol/L Low 135 - 145 mmol/L [facility] Urea nitrogen [Mass/Vol] 16 mg/dL 9 - 20 mg/dL [facility] Laboratory - Chemistry and C hemistry - challengeon 06-16-2022 Glucose [Mass/Vol] 251 mg/dL High 70 - 100 mg/dL [facility] Ammonia (P) [Moles/Vol] 13 umol/L 9 - 30 umol/L [facility] Glucose [Mass/Vol] 175 mg/dL High 70 - 100 mg/dL [facility] Base excess Calc (Bld) [Moles/Vol] 5.0 mmol/L High -3.0 - 3.0 mmol/L [facility] CO2 (Bld) [Partial pressure] 42.3 mm[Hg] [facility] CO2 [Moles/Vol] 30.8 mmol/L High 23.0 - 27.0 mmol/L [facility] HCO3 (Bld) [Moles/Vol] 29.5 mmol/L High 21.0 - 25.0 mmol/L [facility] Oxygen (Bld) [Partial pressure] 67.7 mm[Hg] Low [facility] pH (Bld) 7.452 [pH] High 7.350 - 7.450 pH [facility] Procalcitonin [Mass/Vol] 0.46 ng/mL High 0.00 - 0.09 ng/mL [facility] Lipase [Catalytic activity/Vol] 718 U/L High 23 - 300 U/L [facility] Magnesium [Mass/Vol] 2.2 mg/dL 1.6 - 2 .3 mg/dL [facility] Laboratory - Drug toxicology on 06-16-2022 Vancomycin [Mass/Vol] 14.3 ug/mL Low 15.0 - 20.0 ug/mL [facility] Magnesium [Mass/Vol]on 06-16 Interpretation and review of laboratory results Normal [facility] Manual differential performe d Ql (Bld)on 06-16-2022 Basophilic stippling LM Ql (Bld) Rare Abnormal (none) [facility] Cells Counted Total (Bld) [#] 100 {cells} [facility] Eosinophils (Bld) [#/Vol] 0.8 10*3/uL High 0.0 - 0.5 10*3/uL [facility] Eosinophils Manual 4 High 0 - 1 [facility] Eosinophils/100 WBC (Bld) 4 % 1 - 6 % [facility] Giant platelets LM Ql (Bld) Slight Abnormal (none) [facility] Lymphocytes (Bld) [#/Vol] 0.6 10*3/uL Low 1.0 - 4.3 10*3/uL [facility] Lymphocytes Manual 3 [facility] Lymphocytes/100 WBC (Bld) 3 % Low 20 - 40 % [facility] Monocytes (Bld) [#/Vol] 1.0 10*3/uL High 0.0 - 0.8 10*3/uL [facility] Monocytes Manual 5 [facility] alth Monocytes/100 WBC (Bld) 5 % 2 - 10 % [facility] Neutrophils (Bld) [#/Vol] 17.5 10*3/uL High 1.8 - 7.0 10*3/uL [facility] Neutrophils Manual 88 [facility] Neutrophils.hypersegmen chhaya LM Ql (Bld) Present Abnormal (none) [facility] Nucleated RBC/100 WBC (Bld) [Ratio] 1 % [facility] Ovalocytes LM Ql (Bld) Slight Abnormal (none) [facility] Polychromasia LM Ql (Bld) Slight Abnormal (none) [facility] Segmented neutrophils/100 WBC (Bld) 88 % High 40 - 80 % [facility] Stomatocytes LM Ql (Bld) Slight Abnormal (none) [facility] Toxic granules LM Ql (Bld) Present Abnormal (none) [facility] WBC corrected for nucl RBC (Bld) [#/Vol] 19.90 10*3/uL High 3.60 - 10.70 10*3/uL [facility] No Panel Informationon 06-16 Interpretation and review of laboratory results Abnormal [facility] Interpretation and review of laboratory results Abnormal [facility] Interpretation and review of laboratory results Normal [facility] Interpretation and review of laboratory results Abnormal [facility] FIO2 4 [facility] Interpretation and review of laboratory results Abnormal [facility] Interpretation and review of laboratory results Abnormal [facility] Interpretation and review of laboratory results Abnormal [facility] Procalcitonin [Mass/Vol]on 0 06-16-2022 Interpretation and review of laboratory results Abnormal [facility] XR Chest Single viewon 06-16 [facility] Radiology Study observation (narrative) [facility] XR Chest Single viewOrdered By: Loki Roberts on 06-16-2022 [facility] Work Phone: Bacteria identified Anaer cx Nom (Unsp spec)on 06-15-2022 Interpretation and review of laboratory results Normal [facility] Bacteria identified Cx Nom ( Bld)on 06-15-2022 Interpretation and review of laboratory results Normal [facility] CBC W Auto Differential pane l (Bld)on 06-15-2022 Erythrocyte distribution width (RBC) [Ratio] 13.8 % 11.5 - 14.5 % [facility] Hematocrit (Bld) [Volume fraction] 37.1 % Low 40.0 - 52.0 % [facility] Hemoglobin (Bld) [Mass/Vol] 12.2 g/dL Low 13.0 - 18.0 g/dL [facility] MCH (RBC) [Entitic mass] 30.4 pg 26.0 - 34.0 pg [facility] MCHC (RBC) [Mass/Vol] 33.0 % 32.0 - 36.0 % [facility] MCV (RBC) [Entitic vol] 92.1 fL 80.0 - 98.0 fL [facility] Nucleated RBC/100 WBC (Bld) [Ratio] 0.1 % [facility] Platelet mean volume (Bld) [Entitic vol] 8.6 fL 7.4 - 12.4 fL [facility] Platelets (Bld) [#/Vol] 186 10*3/uL 140 - 440 10*3/uL [facility] RBC (Bld) [#/Vol] 4.03 10*6/uL Low 4.40 - 5.9 0 10*6/uL [facility] WBC (Bld) [#/Vol] 19.0 10*3/uL High 3.6 - 10.7 10*3/uL [facility] Comprehensive metabolic 1998 panelon 06-15-2022 Albumin [Mass/Vol] 3.0 g/dL Low 3.5 - 5.0 g/dL [facility] ALP [Catalytic activity/Vol] 111 U/L 38 - 126 U/L [facility] ALT [Catalytic activity/Vol] 26 U/L 0 - 49 U/L [facility] Anion gap [Moles/Vol] 0 mmol/L Low 3 - 13 mmol/L [facility] AST [Catalytic activity/Vol] 29 U/L 15 - 46 U/L [facility] Bilirubin [Mass/Vol] 0.6 mg/dL 0.2 - 1 .3 mg/dL [facility] Calcium [Mass/Vol] 8.0 mg/dL Low 8.4 - 10. 4 mg/dL [facility] Chloride [Moles/Vol] 95 mmol/L Low 98 - 10 7 mmol/L [facility] CO2 [Moles/Vol] 33 mmol/L High 22 - 30 mmol/L [facility] Creatinine [Mass/Vol] 0.81 mg/dL 0.66 - 1.25 mg/dL [facility] GFR/1.73 sq M.predicted MDRD (S/P/Bld) [Vol rate/Area] - PINF [facility] Glucose [Mass/Vol] 175 mg/dL High 70 - 100 mg/dL [facility] Interpretation and review of laboratory results Abnormal [facility] Potassium [Moles/Vol] 4.2 mmol/L 3.5 - 5.1 mmol/L [facility] Protein [Mass/Vol] 6.0 g/dL Low 6.3 - 8.2 g/dL [facility] Sodium [Moles/Vol] 128 mmol/L Low 135 - 145 mmol/L [facility] Urea nitrogen [Mass/Vol] 10 mg/dL 9 - 20 mg/dL [facility] Creatinine (U) [Mass/Vol]on 06-15-2022 CREATININE, URINE 89.1 mg/dL [facility] Laboratory - Chemistry and C hemistry - challengeon 06-15-2022 Sodium (24H U) [Mass/Vol] 139 mmol/L High 30 - 90 mmol/L [facility] Chloride (U) [Moles/Vol] 109 mmol/L 19 - 209 mmol/L [facility] Magnesium [Mass/Vol] 2.3 mg/dL 1.6 - 2 .3 mg/dL [facility] Laboratory - Drug toxicology on 06-15-2022 Valproate [Mass/Vol] ug/mL Low 50 - 12 0 ug/mL [facility] Laboratory - Microbiology an d Antimicrobial susceptibilityon 06-15-2022 Bacteria identified Cx Nom (Bld) No growth at 5 days [facility] Bacteria identified Anaer cx Nom (Unsp spec) No growth at 5 days [facility] Laboratory - Urinalysison Protein (U) [Mass/Vol] 104 mg/dL High 0 - 1 2 mg/dL [facility] Magnesium [Mass/Vol]on 06-15 Interpretation and review of laboratory results Normal [facility] Manual differential performe d Ql (Bld)on 06-15-2022 Anisocytosis Ql (Bld) Slight Abnormal (none) [facility] Cells Counted Total (Bld) [#] 100 {cells} [facility] Eosinophils (Bld) [#/Vol] 1.0 10*3/uL High 0.0 - 0.5 10*3/uL [facility] Eosinophils Manual 5 High 0 - 1 [facility] Eosinophils/100 WBC (Bld) 5 % 1 - 6 % [facility] Leukocyte morphology finding Nom (Bld) Normal [facility] Lymphocytes (Bld) [#/Vol] 1.1 10*3/uL 1.0 - 4.3 10*3/uL [facility] Lymphocytes Manual 6 [facility] Lymphocytes/100 WBC (Bld) 6 % Low 20 - 40 % [facility] Metamyelocytes (Bld) [#/Vol] 0.2 10*3/uL High NINF - 0.0 10*3/uL [facility] Metamyelocytes Manual 1 [facility] Metamyelocytes/100 WBC (Bld) 1 % High NINF - 0 % [facility] Monocytes (Bld) [#/Vol] 1.1 10*3/uL High 0.0 - 0.8 10*3/uL [facility] Monocytes Manual 6 [facility] alth Monocytes/100 WBC (Bld) 6 % 2 - 10 % [facility] Myelocytes (Bld) [#/Vol] 0.4 10*3/uL High NINF - 0.0 10*3/uL [facility] Myelocytes Manual 2 [facility] Myelocytes/100 WBC (Bld) 2 % High NINF - 0 % [facility] Neutrophils (Bld) [#/Vol] 15.2 10*3/uL High 1.8 - 7.0 10*3/uL [facility] Neutrophils Manual 80 [facility] Ovalocytes LM Ql (Bld) Slight Abnormal (none) [facility] Platelet morphology finding Nom (Bld) Normal [facility] Polychromasia LM Ql (Bld) Slight Abnormal (none) [facility] Segmented neutrophils/100 WBC (Bld) 80 % 40 - 80 % [facility] Stomatocytes LM Ql (Bld) Slight Abnormal (none) [facility] WBC corrected for nucl RBC (Bld) [#/Vol] 19.00 10*3/uL High 3.60 - 10.70 10*3/uL [facility] No Panel Informationon 06-15 Interpretation and review of laboratory results Abnormal [facility] Interpretation and review of laboratory results Normal [facility] Interpretation and review of laboratory results Normal [facility] OSMOLALITY, URINE 598 [facility] H ealth [facility] Interpretation and review of laboratory results Abnormal [facility] Interpretation and review of laboratory results Abnormal [facility] Respiratory pathogens DNA an d RNA panel FAN+non-probe (Lower resp)on 06-15-2022 Acinetobacter baumannii complex Not detected Not Detected [facility] Adenovirus Not detected Not Detected [facility] Chlamydia pneumoniae Not detected Not Detected [facility] Enterobacter cloacae complex Not detected Not Detected [facility] Escherichia coli Not detected Not Detected [facility] FLUAV RNA FAN+non-probe Ql (Lower resp) Not detected Not Detected [facility] FLUBV RNA FAN+non-probe Ql (Lower resp) Not detected Not Detected [facility] Haemophilus influenzae Not detected Not Detected [facility] Human Metapneumovirus Not detected Not Detected [facility] Human Rhinovirus/Enterovirus Not detected Not Detected [facility] Interpretation and review of laboratory results Abnormal [facility] Klebsiella (Enterobacter) aerogenes Not detected Not Detected [facility] Klebsiella oxytoca Not detected Not Detected [facility] Klebsiella pneumoniae Not detected Not Detected [facility] Legionella pneumophila Not detected Not Detected [facility] Moraxella catarrhalis Not detected Not Detected [facility] Mycoplasma pneumoniae Not detected Not Detected [facility] Parainfluenza virus Not detected Not Detected [facility] Proteus spp Not detected Not Detected [facility] Pseudomonas aeruginosa Not detected Not Detected [facility] RSV RNA FAN+probe Ql (Resp) Not detected Not Detected [facility] S. agalactiae Org specific cx Ql (Vag fld) Not detected Not Detected [facility] SARS-CoV-2 (COVID-19) RNA FAN+probe Ql (Unsp spec) Detected Abnormal Not Detected [facility] Serratia marcescens Not detected Not Detected [facility] Staphylococcus aureus Not detected Not Detected [facility] Streptococcus pneumoniae Not detected Not Detected [facility] Streptococcus pyogenes Not detected Not Detected [facility] Urinalysis complete panel (U )Ordered By: Miranda Ware on 06-15-2022 Bacteria LM.HPF (Urine sed) [#/Area] Negative Negative /HPF [facility] Bilirubin Ql (U) Negative Negative mg/dL [facility] Clarity (U) Slightly Cloudy Abnormal Clear [facility] alth Color (U) Yellow Lt. Yellow [facility] Epithelial cells.squamous LM.HPF (Urine sed) [#/Area] [facility] 500 mg/dL Abnormal Normal (<70) [facility] Hemoglobin Ql (U) >1.0 Abnormal Negative mg/dL [facility] Interpretation and review of laboratory results Abnormal [facility] Ketones (U) [Mass/Vol] 20 mg/dL Abnormal Negative [facility] Leukocyte esterase Test strip Ql (U) Negative Negative Chika/uL [facility] Mucus LM.HPF (Urine sed) [#/Area] Few Negative /LPF [facility] Nitrite Ql (U) Negative Negative [facility] th pH (U) 6.5 [pH] 5.0 - 8.0 pH [facility] Protein (U) [Mass/Vol] 100 mg/dL Abnormal Negative [facility] RBC LM.HPF (Urine sed) [#/Area] /[HPF] Abnormal [facility] Specific gravity (U) [Rel density] 1.026 1.005 - 1.030 [facility] Urobilinogen (U) [Mass/Vol] 6 mg/dL Abnormal Normal (0-1) [facility] WBC LM.HPF (Urine sed) [#/Area] 6-10 Abnormal [facility] XR Chest Single viewon 06-15 [facility] Radiology Study observation (narrative) [facility] alth XR Chest Single viewOrdered By: Chaz Poon on 06-15-2022 [facility] Work Phone: Bacteria identified Aer cx N om (Lower resp)Ordered By: Jan Arvizu on 06-14-2022 Gram Stain Result Rare Epithelial cell s per low power field [facility] Gram Stain Result Moderate Polymorphonuclear leukocytes per low power field [facility] Gram Stain Result No organisms seen [facility] CBC W Auto Differential pane l (Bld)on 06-14-2022 Erythrocyte distribution width (RBC) [Ratio] 13.6 % 11.5 - 14.5 % [facility] Hematocrit (Bld) [Volume fraction] 36.3 % Low 40.0 - 52.0 % [facility] Hemoglobin (Bld) [Mass/Vol] 12.2 g/dL Low 13.0 - 18.0 g/dL [facility] MCH (RBC) [Entitic mass] 30.7 pg 26.0 - 34.0 pg [facility] MCHC (RBC) [Mass/Vol] 33.7 % 32.0 - 36.0 % [facility] MCV (RBC) [Entitic vol] 91.1 fL 80.0 - 98.0 fL [facility] Nucleated RBC/100 WBC (Bld) [Ratio] 0.0 % [facility] Platelet mean volume (Bld) [Entitic vol] 8.7 fL 7.4 - 12.4 fL [facility] Platelets (Bld) [#/Vol] 166 10*3/uL 140 - 440 10*3/uL [facility] RBC (Bld) [#/Vol] 3.98 10*6/uL Low 4.40 - 5.9 0 10*6/uL [facility] WBC (Bld) [#/Vol] 18.7 10*3/uL High 3.6 - 10.7 10*3/uL [facility] CRP [Mass/Vol]on 06-14-2022 Interpretation and review of laboratory results Abnormal [facility] Comprehensive metabolic 1998 panelon 06-14-2022 Albumin [Mass/Vol] 2.9 g/dL Low 3.5 - 5.0 g/dL [facility] ALP [Catalytic activity/Vol] 106 U/L 38 - 126 U/L [facility] ALT [Catalytic activity/Vol] 36 U/L 0 - 49 U/L [facility] Anion gap [Moles/Vol] -3 mmol/L Low 3 - 13 mmol/L [facility] AST [Catalytic activity/Vol] 41 U/L 15 - 46 U/L [facility] Bilirubin [Mass/Vol] 0.7 mg/dL 0.2 - 1 .3 mg/dL [facility] Calcium [Mass/Vol] 7.9 mg/dL Low 8.4 - 10. 4 mg/dL [facility] Chloride [Moles/Vol] 98 mmol/L 98 - 10 7 mmol/L [facility] CO2 [Moles/Vol] 32 mmol/L High 22 - 30 mmol/L [facility] Creatinine [Mass/Vol] 0.71 mg/dL 0.66 - 1.25 mg/dL [facility] GFR/1.73 sq M.predicted MDRD (S/P/Bld) [Vol rate/Area] - PINF [facility] Glucose [Mass/Vol] 171 mg/dL High 70 - 100 mg/dL [facility] Interpretation and review of laboratory results Abnormal [facility] Potassium [Moles/Vol] 4.2 mmol/L 3.5 - 5.1 mmol/L [facility] Protein [Mass/Vol] 5.9 g/dL Low 6.3 - 8.2 g/dL [facility] Sodium [Moles/Vol] 127 mmol/L Low 135 - 145 mmol/L [facility] Urea nitrogen [Mass/Vol] 8 mg/dL Low 9 - 20 mg/dL [facility] Laboratory - Chemistry and C hemistry - challengeon 06-14-2022 Procalcitonin [Mass/Vol] 0.47 ng/mL High 0.00 - 0.09 ng/mL [facility] CRP [Mass/Vol] 195.0 mg/L High NINF - 10.0 mg/L [facility] Magnesium [Mass/Vol] 2.2 mg/dL 1.6 - 2 .3 mg/dL [facility] Lipase [Catalytic activity/Vol] 434 U/L High 23 - 300 U/L [facility] Laboratory - Microbiology an d Antimicrobial susceptibilityOrdered By: Jan Arvizu on 06-14-2022 Bacteria identified Aer cx Nom (Lower resp) Rare respiratory vikram present. [facility] Lipase [Catalytic activity/V ol]on 06-14-2022 Interpretation and review of laboratory results Abnormal [facility] Magnesium [Mass/Vol]on 06-14 Interpretation and review of laboratory results Normal [facility] Manual differential performe d Ql (Bld)on 06-14-2022 Anisocytosis Ql (Bld) Slight Abnormal (none) [facility] Band form neutrophils (Bld) [#/Vol] 0.2 10*3/uL High NINF - 0.0 10*3/uL [facility] Band form neutrophils/100 WBC (Bld) 1 % High NINF - 0 % [facility] Bands Manual 1 [facility] Cells Counted Total (Bld) [#] 100 {cells} [facility] Eosinophils (Bld) [#/Vol] 0.7 10*3/uL High 0.0 - 0.5 10*3/uL [facility] Eosinophils Manual 4 High 0 - 1 [facility] Eosinophils/100 WBC (Bld) 4 % 1 - 6 % [facility] Leukocyte morphology finding Nom (Bld) Normal [facility] Lymphocytes (Bld) [#/Vol] 1.9 10*3/uL 1.0 - 4.3 10*3/uL [facility] Lymphocytes Manual 10 [facility] Lymphocytes/100 WBC (Bld) 10 % Low 20 - 40 % [facility] Monocytes (Bld) [#/Vol] 0.6 10*3/uL 0.0 - 0.8 10*3/uL [facility] Monocytes Manual 3 [facility] alth Monocytes/100 WBC (Bld) 3 % 2 - 10 % [facility] Myelocytes (Bld) [#/Vol] 0.4 10*3/uL High NINF - 0.0 10*3/uL [facility] Myelocytes Manual 2 [facility]alth Myelocytes/100 WBC (Bld) 2 % High NINF - 0 % [facility] Neutrophils (Bld) [#/Vol] 15.1 10*3/uL High 1.8 - 7.0 10*3/uL [facility] Neutrophils Manual 80 [facility] Nucleated RBC/100 WBC (Bld) [Ratio] 1 % [facility] Ovalocytes LM Ql (Bld) Slight Abnormal (none) [facility] Platelet morphology finding Nom (Bld) Normal [facility] Polychromasia LM Ql (Bld) Slight Abnormal (none) [facility] Segmented neutrophils/100 WBC (Bld) 80 % 40 - 80 % [facility] WBC corrected for nucl RBC (Bld) [#/Vol] 18.70 10*3/uL High 3.60 - 10.70 10*3/uL [facility] No Panel Informationon 06-14 Interpretation and review of laboratory results Abnormal [facility] Procalcitonin [Mass/Vol]on 0 06-14-2022 Interpretation and review of laboratory results Abnormal [facility] Bacteria identified Aer cx N om (Unsp spec)Ordered By: Des Boston on 06-13-2022 Gram Stain Result Rare Polymorphonucle ar leukocytes per low power field [facility] Gram Stain Result No organisms seen [facility] CBC W Auto Differential pane l (Bld)on 06-13-2022 Basophils (Bld) [#/Vol] 0.1 10*3/uL 0.0 - 0.2 10*3/uL [facility] Basophils/100 WBC (Bld) 0.4 % 0.0 - 2.0 % [facility] Eosinophils (Bld) [#/Vol] 0.2 10*3/uL 0.0 - 0.5 10*3/uL [facility] Eosinophils/100 WBC (Bld) 1.6 % 1.0 - 6.0 % [facility] Erythrocyte distribution width (RBC) [Ratio] 13.3 % 11.5 - 14.5 % [facility] Hematocrit (Bld) [Volume fraction] 35.5 % Low 40.0 - 52.0 % [facility] Hemoglobin (Bld) [Mass/Vol] 11.9 g/dL Low 13.0 - 18.0 g/dL [facility] Interpretation and review of laboratory results Abnormal [facility] Lymphocytes (Bld) [#/Vol] 1.1 10*3/uL 1.0 - 4.3 10*3/uL [facility] Lymphocytes/100 WBC (Bld) 7.8 % Low 20.0 - 40.0 % [facility] MCH (RBC) [Entitic mass] 30.9 pg 26.0 - 34.0 pg [facility] MCHC (RBC) [Mass/Vol] 33.5 % 32.0 - 36.0 % [facility] MCV (RBC) [Entitic vol] 92.0 fL 80.0 - 98.0 fL [facility] Monocytes (Bld) [#/Vol] 1.4 10*3/uL High 0.0 - 0.8 10*3/uL [facility] Monocytes/100 WBC (Bld) 9.8 % 2.0 - 10.0 % [facility] Neutrophils (Bld) [#/Vol] 11.6 10*3/uL High 1.8 - 7.0 10*3/uL [facility] Neutrophils/100 WBC (Bld) 80.4 % High 40.0 - 80.0 % [facility] Nucleated RBC/100 WBC (Bld) [Ratio] 0.0 % [facility] Platelet mean volume (Bld) [Entitic vol] 8.8 fL 7.4 - 12.4 fL [facility] Platelets (Bld) [#/Vol] 135 10*3/uL Low 140 - 440 10*3/uL [facility] RBC (Bld) [#/Vol] 3.86 10*6/uL Low 4.40 - 5.9 0 10*6/uL [facility] WBC (Bld) [#/Vol] 14.4 10*3/uL High 3.6 - 10.7 10*3/uL [facility] CT Abdomen and Pelvis W cont rast Constantine 06-13-2022 [facility] Radiology Study observation (narrative) [facility] Abdomen and Pelvis W cont rast IVOrdered By: Merrick Lopez on 06-13-2022 [facility] Work Phone: Comprehensive metabolic 1998 panelon 06-13-2022 Albumin [Mass/Vol] 2.7 g/dL Low 3.5 - 5.0 g/dL [facility] ALP [Catalytic activity/Vol] 77 U/L 38 - 126 U/L [facility] ALT [Catalytic activity/Vol] 26 U/L 0 - 49 U/L [facility] Anion gap [Moles/Vol] 0 mmol/L Low 3 - 13 mmol/L [facility] AST [Catalytic activity/Vol] 35 U/L 15 - 46 U/L [facility] Bilirubin [Mass/Vol] 0.8 mg/dL 0.2 - 1 .3 mg/dL [facility] Calcium [Mass/Vol] 7.3 mg/dL Low 8.4 - 10. 4 mg/dL [facility] Chloride [Moles/Vol] 100 mmol/L 98 - 10 7 mmol/L [facility] CO2 [Moles/Vol] 29 mmol/L 22 - 30 mmol/L [facility] Creatinine [Mass/Vol] 0.76 mg/dL 0.66 - 1.25 mg/dL [facility] GFR/1.73 sq M.predicted MDRD (S/P/Bld) [Vol rate/Area] - PINF [facility] Glucose [Mass/Vol] 189 mg/dL High 70 - 100 mg/dL [facility] Interpretation and review of laboratory results Abnormal [facility] Potassium [Moles/Vol] 4.0 mmol/L 3.5 - 5.1 mmol/L [facility] Protein [Mass/Vol] 5.6 g/dL Low 6.3 - 8.2 g/dL [facility] Sodium [Moles/Vol] 129 mmol/L Low 135 - 145 mmol/L [facility] Urea nitrogen [Mass/Vol] 8 mg/dL Low 9 - 20 mg/dL [facility] Laboratory - Chemistry and C hemistry - challengeon 06-13-2022 Magnesium [Mass/Vol] 2.3 mg/dL 1.6 - 2 .3 mg/dL [facility] Laboratory - Microbiology an d Antimicrobial susceptibilityOrdered By: Des Boston on 06-13-2022 Bacteria identified Aer cx Nom (Unsp spec) No growth at 72 hours [facility] Magnesium [Mass/Vol]on 06-13 Interpretation and review of laboratory results Normal [facility] No Panel Informationon 06-13 [facility] US Abdomen limitedon 023 [facility] Radiology Study observation (narrative) [facility] alth CBC W Auto Differential pane l (Bld)Ordered By: Angelica Bennett on 06-12-2022 Basophils (Bld) [#/Vol] 0.1 10*3/uL 0.0 - 0.2 10*3/uL [facility] Basophils/100 WBC (Bld) 0.5 % 0.0 - 2.0 % [facility] Eosinophils (Bld) [#/Vol] 0.2 10*3/uL 0.0 - 0.5 10*3/uL [facility] Eosinophils/100 WBC (Bld) 1.5 % 1.0 - 6.0 % [facility] Erythrocyte distribution width (RBC) [Ratio] 13.8 % 11.5 - 14.5 % [facility] Hematocrit (Bld) [Volume fraction] 35.4 % Low 40.0 - 52.0 % [facility] Hemoglobin (Bld) [Mass/Vol] 11.8 g/dL Low 13.0 - 18.0 g/dL [facility] Interpretation and review of laboratory results Abnormal [facility] Lymphocytes (Bld) [#/Vol] 1.5 10*3/uL 1.0 - 4.3 10*3/uL [facility] Lymphocytes/100 WBC (Bld) 13.0 % Low 20.0 - 40.0 % [facility] MCH (RBC) [Entitic mass] 31.0 pg 26.0 - 34.0 pg [facility] MCHC (RBC) [Mass/Vol] 33.4 % 32.0 - 36.0 % [facility] MCV (RBC) [Entitic vol] 92.8 fL 80.0 - 98.0 fL [facility] Monocytes (Bld) [#/Vol] 1.2 10*3/uL High 0.0 - 0.8 10*3/uL [facility] Monocytes/100 WBC (Bld) 10.2 % High 2.0 - 10.0 % [facility] Neutrophils (Bld) [#/Vol] 8.9 10*3/uL High 1.8 - 7.0 10*3/uL [facility] Neutrophils/100 WBC (Bld) 74.8 % 40.0 - 80.0 % [facility] Nucleated RBC/100 WBC (Bld) [Ratio] 0.0 % [facility] Platelet mean volume (Bld) [Entitic vol] 9.4 fL 7.4 - 12.4 fL [facility] Platelets (Bld) [#/Vol] 121 10*3/uL Low 140 - 440 10*3/uL [facility] RBC (Bld) [#/Vol] 3.82 10*6/uL Low 4.40 - 5.9 0 10*6/uL [facility] WBC (Bld) [#/Vol] 11.9 10*3/uL High 3.6 - 10.7 10*3/uL [facility] Comprehensive metabolic 1998 panelon 06-12-2022 Albumin [Mass/Vol] 2.6 g/dL Low 3.5 - 5.0 g/dL [facility] ALP [Catalytic activity/Vol] 67 U/L 38 - 126 U/L [facility] ALT [Catalytic activity/Vol] 17 U/L 0 - 49 U/L [facility] Anion gap [Moles/Vol] -3 mmol/L Low 3 - 13 mmol/L [facility] AST [Catalytic activity/Vol] 29 U/L 15 - 46 U/L [facility] Bilirubin [Mass/Vol] 1.1 mg/dL 0.2 - 1 .3 mg/dL [facility] Calcium [Mass/Vol] 7.0 mg/dL Low 8.4 - 10. 4 mg/dL [facility] Chloride [Moles/Vol] 104 mmol/L 98 - 10 7 mmol/L [facility] CO2 [Moles/Vol] 27 mmol/L 22 - 30 mmol/L [facility] Creatinine [Mass/Vol] 0.84 mg/dL 0.66 - 1.25 mg/dL [facility] GFR/1.73 sq M.predicted MDRD (S/P/Bld) [Vol rate/Area] - PINF [facility] Glucose [Mass/Vol] 140 mg/dL High 70 - 100 mg/dL [facility] Potassium [Moles/Vol] 4.1 mmol/L 3.5 - 5.1 mmol/L [facility] Protein [Mass/Vol] 5.2 g/dL Low 6.3 - 8.2 g/dL [facility] Sodium [Moles/Vol] 129 mmol/L Low 135 - 145 mmol/L [facility] Urea nitrogen [Mass/Vol] 11 mg/dL 9 - 20 mg/dL [facility] Laboratory - Chemistry and C hemistry - challengeon 06-12-2022 Lipase [Catalytic activity/Vol] 339 U/L High 23 - 300 U/L [facility] Magnesium [Mass/Vol] 2.0 mg/dL 1.6 - 2 .3 mg/dL [facility] Magnesium [Mass/Vol]on 06-12 Interpretation and review of laboratory results Normal [facility] No Panel InformationOrdered By: Sonia Rodriguez on 06-12-2022 Right Pop Rfx 1.0 s [facility] [employer] Work Phone: No Panel Informationon 06-12 [facility] Interpretation and review of laboratory results Abnormal [facility] Respiratory pathogens DNA an d RNA panel FAN+non-probe (Lower resp)on 06-12-2022 Acinetobacter baumannii complex Not detected Not Detected [facility] Adenovirus Not detected Not Detected [facility] Chlamydia pneumoniae Not detected Not Detected [facility] Enterobacter cloacae complex Not detected Not Detected [facility] Escherichia coli Not detected Not Detected [facility] FLUAV RNA FAN+non-probe Ql (Lower resp) Not detected Not Detected [facility] FLUBV RNA FAN+non-probe Ql (Lower resp) Not detected Not Detected [facility] Haemophilus influenzae Not detected Not Detected [facility] Human Metapneumovirus Not detected Not Detected [facility] Human Rhinovirus/Enterovirus Not detected Not Detected [facility] Interpretation and review of laboratory results Normal [facility] Klebsiella (Enterobacter) aerogenes Not detected Not Detected [facility] Klebsiella oxytoca Not detected Not Detected [facility] Klebsiella pneumoniae Not detected Not Detected [facility] Legionella pneumophila Not detected Not Detected [facility] Moraxella catarrhalis Not detected Not Detected [facility] Mycoplasma pneumoniae Not detected Not Detected [facility] Parainfluenza virus Not detected Not Detected [facility] Proteus spp Not detected Not Detected [facility] Pseudomonas aeruginosa Not detected Not Detected [facility] RSV RNA FAN+probe Ql (Resp) Not detected Not Detected [facility] S. agalactiae Org specific cx Ql (Vag fld) Not detected Not Detected [facility] SARS-CoV-2 (COVID-19) RNA FAN+probe Ql (Unsp spec) Not detected Not Detected [facility] Serratia marcescens Not detected Not Detected [facility] Staphylococcus aureus Not detected Not Detected [facility] Streptococcus pneumoniae Not detected Not Detected [facility] Streptococcus pyogenes Not detected Not Detected [facility] US lower extremity venous duplex bilateralon [...] and peroneal veins were visualized in segments. [employer] Assistant Manager Details A villegas scale, color Doppler imaging and spectral Doppler analysis ultrasound was performed. During the study longitudinal and transverse views were obtained. Pulsed wave doppler was performed. The exam was performed with the patient in the supine position. Overall the study quality was adequate. [facility] XR Chest Single viewon 06-12 [facility] Radiology Study observation (narrative) [facility] XR Chest Single viewOrdered By: Asad Mccarthy on 06-12-2022 [employer] Phone: XR Foot - right 3 Viewson [facility] Rad[facility] Study observation (narrative) [facility] XR Foot - right 3 ViewsOrder ed By: Ezra Guthrie on 06-12-2022 [employer] Phone: CBC W Auto Differential pane l (Bld)Ordered By: Jacobo Ward on 06-11-2022 Basophils (Bld) [#/Vol] 0.0 10*3/uL 0.0 - 0.2 10*3/uL [facility] [employer] Basophils/100 WBC (Bld) 0.2 % 0.0 - 2.0 % [facility] [employer] Eosinophils (Bld) [#/Vol] 0.0 10*3/uL 0.0 - 0.5 10*3/uL [facility] [employer] Eosinophils/100 WBC (Bld) 0.2 % Low 1.0 - 6.0 % [facility] [employer] Erythrocyte distribution width (RBC) [Ratio] 13.8 % 11.5 - 14.5 % [facility] [employer] Hematocrit (Bld) [Volume fraction] 41.0 % 40.0 - 52.0 % [facility] [employer] Hemoglobin (Bld) [Mass/Vol] 13.8 g/dL 13.0 - 18.0 g/dL [facility] [employer] Interpretation and review of laboratory results Abnormal [facility] [employer] Lymphocytes (Bld) [#/Vol] 1.8 10*3/uL 1.0 - 4.3 10*3/uL [facility] [employer] Lymphocytes/100 WBC (Bld) 10.4 % Low 20.0 - 40.0 % [facility] [employer] MCH (RBC) [Entitic mass] 31.5 pg 26.0 - 34.0 pg [facility] [employer] MCHC (RBC) [Mass/Vol] 33.7 % 32.0 - 36.0 % [facility] [employer] MCV (RBC) [Entitic vol] 93.3 fL 80.0 - 98.0 fL [facility] [employer] Monocytes (Bld) [#/Vol] 1.5 10*3/uL High 0.0 - 0.8 10*3/uL [facility] Monocytes/100 WBC (Bld) 8.5 % 2.0 - 10.0 % [facility] Neutrophils (Bld) [#/Vol] 14.0 10*3/uL High 1.8 - 7.0 10*3/uL [facility] Neutrophils/100 WBC (Bld) 80.7 % High 40.0 - 80.0 % [facility] Nucleated RBC/100 WBC (Bld) [Ratio] 0.0 % [facility] Platelet mean volume (Bld) [Entitic vol] 9.1 fL 7.4 - 12.4 fL [facility] Platelets (Bld) [#/Vol] 132 10*3/uL Low 140 - 440 10*3/uL [facility] RBC (Bld) [#/Vol] 4.40 10*6/uL 4.40 - 5.9 0 10*6/uL [facility] WBC (Bld) [#/Vol] 17.3 10*3/uL High 3.6 - 10.7 10*3/uL [facility] Comprehensive metabolic 1998 panelon 06-11-2022 Albumin [Mass/Vol] 2.9 g/dL Low 3.5 - 5.0 g/dL [facility] ALP [Catalytic activity/Vol] 69 U/L 38 - 126 U/L [facility] ALT [Catalytic activity/Vol] 15 U/L 0 - 49 U/L [facility] Anion gap [Moles/Vol] 1 mmol/L Low 3 - 13 mmol/L [facility] AST [Catalytic activity/Vol] 30 U/L 15 - 46 U/L [facility] Bilirubin [Mass/Vol] 1.2 mg/dL 0.2 - 1 .3 mg/dL [facility] Calcium [Mass/Vol] 7.0 mg/dL Low 8.4 - 10. 4 mg/dL [facility] Chloride [Moles/Vol] 104 mmol/L 98 - 10 7 mmol/L [facility] CO2 [Moles/Vol] 29 mmol/L 22 - 30 mmol/L [facility] Creatinine [Mass/Vol] 0.97 mg/dL 0.66 - 1.25 mg/dL [facility] GFR/1.73 sq M.predicted MDRD (S/P/Bld) [Vol rate/Area] 89.9 mL/min/{1.73_m2} - PINF [facility] Glucose [Mass/Vol] 145 mg/dL High 70 - 100 mg/dL [facility] Interpretation and review of laboratory results Abnormal [facility] Potassium [Moles/Vol] 4.3 mmol/L 3.5 - 5.1 mmol/L [facility] Protein [Mass/Vol] 5.7 g/dL Low 6.3 - 8.2 g/dL [facility] Sodium [Moles/Vol] 133 mmol/L Low 135 - 145 mmol/L [facility] Urea nitrogen [Mass/Vol] 16 mg/dL 9 - 20 mg/dL [facility] Laboratory - Chemistry and C hemistry - challengeon 06-11-2022 Magnesium [Mass/Vol] 2.1 mg/dL 1.6 - 2 .3 mg/dL [facility] Magnesium [Mass/Vol]on 06-11 Interpretation and review of laboratory results Normal [facility] No Panel Informationon 06-11 [facility] Laboratory - Chemistry and C hemistry - challengeOrdered By: Julissa Taylor on 06-10-2022 Triglyceride [Mass/Vol] 125 mg/dL NINF - 150 mg/dL [facility] No Panel InformationOrdered By: Ajay Cobos on 06-10-2022 Interpretation and review of laboratory results Normal [facility] Legionella pneumophila Ag Not detected Not Detected [facility] Streptococcus pneumoniae Ag Not detected Not Detected [facility] No Panel Informationon 06-10 [facility] Radiology Study observation (narrative) [facility] No Panel InformationOrdered By: Jus Barlow on 06-10-2022 [facility] Work Phone: Respiratory pathogens DNA an d RNA panel FAN+probe (Nph)on 06-10-2022 Adenovirus Not detected Not Detected [facility] B. pertussis DNA FAN+probe Ql (Unsp spec) Not detected Not Detected [facility] Bordetella parapertussis Not detected Not Detected [facility] Chlamydia pneumoniae Not detected Not Detected [facility] Coronavirus 229E Not detected Not Detected [facility] Coronavirus HKU1 Not detected Not Detected [facility] Coronavirus NL63 Not detected Not Detected [facility] Coronavirus OC43 Not detected Not Detected [facility] FLUAV RNA FAN+non-probe Ql (Nph) Not detected Not Detected [facility] FLUBV RNA FAN+non-probe Ql (Nph) Not detected Not Detected [facility] Human Metapneumovirus Not detected Not Detected [facility] Human Rhinovirus/Enterovirus Not detected Not Detected [facility] Interpretation and review of laboratory results Normal [facility] Mycoplasma pneumoniae Not detected Not Detected [facility] Parainfluenza 1 Not detected Not Detected [facility] Parainfluenza 2 Not detected Not Detected [facility] Parainfluenza 3 Not detected Not Detected [facility] Parainfluenza 4 Not detected Not Detected [facility] Respiratory Syncytial Virus Not detected Not Detected [facility] SARS-CoV-2 (COVID-19) RNA FAN+non-probe Ql (Nph) Not detected Not Detected [facility] Triglyceride [Mass/Vol]Order ed By: Julissa Taylor on 06-10-2022 Interpretation and review of laboratory results Normal [facility] Urinalysis complete panel (U )Ordered By: Bia Covington on 06-10-2022 Bacteria LM.HPF (Urine sed) [#/Area] Negative Negative /HPF [facility] Glucose Ql (U) >1,000 Abnormal Normal (<70) mg/dL [facility] Leukocyte esterase Test strip Ql (U) Negative Negative Chika/uL [facility] Protein (U) [Mass/Vol] 200 mg/dL Abnormal Negative [facility] RBC LM.HPF (Urine sed) [#/Area] 0-2 [facility] WBC LM.HPF (Urine sed) [#/Area] 3-5 [facility] Basophil percentageOrdered B y: Demetrius Fenton on 05-20-2022 Chloride [Moles/Vol] 105 mmol/L 98-107 [facility] Glucose [Mass/Vol] 144 mg/dL 74-106 [facility] Comment on above: Fasting Glucose resu lt greater than or equal to 126 mg/dL suggests DIABETES MELLITUS per A.D.A. criteria. Potassium [Moles/Vol] 4.9 mmol/L 3.5-5.1 [facility] Sodium [Moles/Vol] 138 mmol/L 136-145 [facility] Laboratory - Chemistry and C hemistry - challengeOrdered By: Demetrius Fenton on 05-20-2022 CO2 [Moles/Vol] 26.0 mmol/L 21.0-32.0 [facility] Urea nitrogen/Creatinine [Mass ratio] 20.7 mg/mg 10-20 [facility] No Panel InformationOrdered By: Demetrius Fenton on 05-20-2022 Estimated GFR (MDRD) Amer 62 mL/min >60 [facility] Comment on above: GFR Calc Estimated GFR (MDRD) Non-Af Amer 51 mL/min >60 [facility] Comment on above: Non- GFR Calc Serum or plasma calcium roseanne urement (mass/volume)Ordered By: Demetrius Fenton on 05-20-2022 Calcium [Mass/Vol] 8.9 mg/dL 8.5-10.1 [facility] Serum or plasma creatinine m easurement (mass/volume)Ordered By: Demetrius Fenton on 05-20-2022 Creatinine [Mass/Vol] 1.50 mg/dL 0.70-1.30 [facility] Comment on above: The validity of the calculated GFR & GFRAA in patients over 70 years has not been determined. Clinical correlation is essential. Serum or plasma urea nitroge n measurement (mass/volume)Ordered By: Demetrius Fenton on 05-20-2022 Urea nitrogen [Mass/Vol] 31 mg/dL 7-18 [facility] Thin prep Papanicolaou smear with manual screeningOrdered By: Demetrius Fenton on 05-20-2022 Thin prep Papanicolaou smear with manual screening 7 5-15 [facility] Basophil percentageOrdered B y: Demetrius Fenton on 05-13-2022 Chloride [Moles/Vol] 104 mmol/L 98-107 [facility] Glucose [Mass/Vol] 116 mg/dL 74-106 [facility] Comment on above: Fasting Glucose resu lt from 100 to 125 mg/dL suggests IMPAIRED HOMEOSTASIS per A.D.A. criteria. Potassium [Moles/Vol] 4.9 mmol/L 3.5-5.1 [facility] Sodium [Moles/Vol] 139 mmol/L 136-145 [facility] WBC (Bld) [#/Vol] 8.0 10*3/uL 4.4-11.0 [facility] Blood erythrocytes count (nu mber/volume)Ordered By: Demetrius Fenton on 05-13-2022 RBC (Bld) [#/Vol] 4.12 10*6/uL 4.6-6.2 [facility] Blood hemoglobin measurement (mass/volume)Ordered By: Demetrius Fenton on 05-13-2022 Hemoglobin (Bld) [Mass/Vol] 12.9 g/dL 13.0-16.5 [facility] Blood platelet mean volumeOr dered By: Demetrius Fenton on 05-13-2022 Platelet mean volume (Bld) [Entitic vol] 11.8 fL 6.2-12.0 [facility] Determination of erythrocyte mean corpuscular volume (MCV)Ordered By: Demetrius Fenton on 05-13-2022 MCV (RBC) [Entitic vol] 96.1 fL 80-94 [facility] Hematocrit Auto (Bld) [Volum e fraction]Ordered By: Demetrius Fenton on 05-13-2022 Hematocrit (Bld) [Volume fraction] 39.6 % 40-54 [facility] Laboratory - Chemistry and C hemistry - challengeOrdered By: Demetrius Fenton on 05-13-2022 CO2 [Moles/Vol] 27.0 mmol/L 21.0-32.0 [facility] Urea nitrogen/Creatinine [Mass ratio] 18.6 mg/mg 10-20 [facility] Laboratory - Hematology and Cell countsOrdered By: Demetrius Fenton on 05-13-2022 Erythrocyte distribution width (RBC) [Entitic vol] 45.3 fL 35.1-43.9 [facility] Erythrocyte distribution width (RBC) [Ratio] 13.2 % 11.6-14.6 [facility] MCH (RBC) [Entitic mass] 31.3 pg 27.0-32.0 [facility] MCHC Auto (RBC) [Mass/Vol]Or dered By: Demetrius Fenton on 05-13-2022 MCHC (RBC) [Mass/Vol] 32.6 g/dL 32-36 [facility] No Panel InformationOrdered By: Demetrius Fenton on 05-13-2022 Estimated GFR (MDRD) Amer 67 mL/min >60 [facility] Comment on above: GFR Calc Estimated GFR (MDRD) Non-Af Amer 55 mL/min >60 [facility] Comment on above: Non- GFR Calc Platelets bldOrdered By: Miriam Fenton on 05-13-2022 Platelets (Bld) [#/Vol] 172 10*3/uL 150-450 [facility] Serum or plasma calcium roseanne urement (mass/volume)Ordered By: Demetrius Fenton on 05-13-2022 Calcium [Mass/Vol] 9.0 mg/dL 8.5-10.1 [facility] Serum or plasma creatinine m easurement (mass/volume)Ordered By: Demetrius Fenton on 05-13-2022 Creatinine [Mass/Vol] 1.40 mg/dL 0.70-1.30 [facility] Comment on above: The validity of the calculated GFR & GFRAA in patients over 70 years has not been determined. Clinical correlation is essential. Serum or plasma urea nitroge n measurement (mass/volume)Ordered By: Demetrius Fenton on 05-13-2022 Urea nitrogen [Mass/Vol] 26 mg/dL 7-18 [facility] Thin prep Papanicolaou smear with manual screeningOrdered By: Demetrius Fenton on 05-13-2022 Thin prep Papanicolaou smear with manual screening 8 5-15 [facility] Basophil percentageOrdered B y: Demetrius Fenton on 04-29-2022 Chloride [Moles/Vol] 105 mmol/L 98-107 [facility] Glucose [Mass/Vol] 125 mg/dL 74-106 [facility] Comment on above: Fasting Glucose resu lt from 100 to 125 mg/dL suggests IMPAIRED HOMEOSTASIS per A.D.A. criteria. Potassium [Moles/Vol] 4.6 mmol/L 3.5-5.1 [facility] Sodium [Moles/Vol] 137 mmol/L 136-145 [facility] WBC (Bld) [#/Vol] 8.7 10*3/uL 4.4-11.0 [facility] Blood erythrocytes count (nu mber/volume)Ordered By: Demetrius Fenton on 04-29-2022 RBC (Bld) [#/Vol] 4.05 10*6/uL 4.6-6.2 [facility] Blood hemoglobin measurement (mass/volume)Ordered By: Demetrius Fenton on 04-29-2022 Hemoglobin (Bld) [Mass/Vol] 12.6 g/dL 13.0-16.5 [facility] Blood platelet mean volumeOr dered By: Demetrius Fenton on 04-29-2022 Platelet mean volume (Bld) [Entitic vol] 11.1 fL 6.2-12.0 [facility] Determination of erythrocyte mean corpuscular volume (MCV)Ordered By: Demetrius Fenton on 04-29-2022 MCV (RBC) [Entitic vol] 94.6 fL 80-94 [facility] Hematocrit Auto (Bld) [Volum e fraction]Ordered By: Demetrius Fenton on 04-29-2022 Hematocrit (Bld) [Volume fraction] 38.3 % 40-54 [facility] Laboratory - Chemistry and C hemistry - challengeOrdered By: Demetrius Fenton on 04-29-2022 CO2 [Moles/Vol] 26.0 mmol/L 21.0-32.0 [facility] Urea nitrogen/Creatinine [Mass ratio] 18.6 mg/mg 10-20 [facility] Laboratory - Hematology and Cell countsOrdered By: Demetrius Fenton on 04-29-2022 Erythrocyte distribution width (RBC) [Entitic vol] 44.2 fL 35.1-43.9 [facility] Erythrocyte distribution width (RBC) [Ratio] 13.1 % 11.6-14.6 [facility] MCH (RBC) [Entitic mass] 31.1 pg 27.0-32.0 [facility] MCHC Auto (RBC) [Mass/Vol]Or dered By: Demetrius Fenton on 04-29-2022 MCHC (RBC) [Mass/Vol] 32.9 g/dL 32-36 [facility] No Panel InformationOrdered By: Demetrius Fenton on 04-29-2022 Estimated GFR (MDRD) Amer 57 mL/min >60 [facility] Comment on above: GFR Calc Estimated GFR (MDRD) Non-Af Amer 47 mL/min >60 [facility] Comment on above: Non- GFR Calc Platelets bldOrdered By: Miriam Fenton on 04-29-2022 Platelets (Bld) [#/Vol] 165 10*3/uL 150-450 [facility] Serum or plasma calcium roseanne urement (mass/volume)Ordered By: Demetrius Fenton on 04-29-2022 Calcium [Mass/Vol] 8.7 mg/dL 8.5-10.1 [facility] Serum or plasma creatinine m easurement (mass/volume)Ordered By: Demetrius Fenton on 04-29-2022 Creatinine [Mass/Vol] 1.61 mg/dL 0.70-1.30 [facility] Comment on above: The validity of the calculated GFR & GFRAA in patients over 70 years has not been determined. Clinical correlation is essential. Serum or plasma urea nitroge n measurement (mass/volume)Ordered By: Demetrius Fenton on 04-29-2022 Urea nitrogen [Mass/Vol] 30 mg/dL 7-18 [facility] Thin prep Papanicolaou smear with manual screeningOrdered By: Demetrius Fenton on 04-29-2022 Thin prep Papanicolaou smear with manual screening 6 5-15 [facility] Basophil percentageOrdered B y: Demetrius Fenton on 04-22-2022 Chloride [Moles/Vol] 103 mmol/L 98-107 [facility] Glucose [Mass/Vol] 154 mg/dL 74-106 [facility] Comment on above: Fasting Glucose resu lt greater than or equal to 126 mg/dL suggests DIABETES MELLITUS per A.D.A. criteria. Potassium [Moles/Vol] 4.9 mmol/L 3.5-5.1 [facility] Sodium [Moles/Vol] 136 mmol/L 136-145 [facility] Laboratory - Chemistry and C hemistry - challengeOrdered By: Demetrius Fenton on 04-22-2022 CO2 [Moles/Vol] 25.0 mmol/L 21.0-32.0 [facility] Urea nitrogen/Creatinine [Mass ratio] 24.3 mg/mg - [facility] No Panel InformationOrdered By: Demetrius Fenton on 04-22-2022 Estimated GFR (MDRD) Amer 69 mL/min >60 [facility] Comment on above: GFR Calc Estimated GFR (MDRD) Non-Af Amer 57 mL/min >60 [facility] Comment on above: Non- GFR Calc Serum or plasma calcium roseanne urement (mass/volume)Ordered By: Demetrius Fenton on 04-22-2022 Calcium [Mass/Vol] 9.0 mg/dL 8.5-10.1 [facility] Serum or plasma creatinine m easurement (mass/volume)Ordered By: Demetrius Fenton on 04-22-2022 Creatinine [Mass/Vol] 1.36 mg/dL 0.70-1.30 [facility] Comment on above: The validity of the calculated GFR & GFRAA in patients over 70 years has not been determined. Clinical correlation is essential. Serum or plasma urea nitroge n measurement (mass/volume)Ordered By: Demetrius Fenton on 04-22-2022 Urea nitrogen [Mass/Vol] 33 mg/dL 7-18 [facility] Thin prep Papanicolaou smear with manual screeningOrdered By: Demetrius Fenton on 04-22-2022 Thin prep Papanicolaou smear with manual screening 8 5-15 [facility] Basophil percentageOrdered B y: Gunnar Cummings on 02-17-2022 Chloride [Moles/Vol] 102 mmol/L 98-107 [facility] Glucose [Mass/Vol] 117 mg/dL 74-106 [facility] Comment on above: Fasting Glucose resu lt from 100 to 125 mg/dL suggests IMPAIRED HOMEOSTASIS per A.D.A. criteria. Potassium [Moles/Vol] 4.8 mmol/L 3.5-5.1 [facility] Sodium [Moles/Vol] 137 mmol/L 136-145 [facility] Laboratory - Chemistry and C hemistry - challengeOrdered By: Gunnar Cummings on 02-17-2022 CO2 [Moles/Vol] 28.0 mmol/L 21.0-32.0 [facility] Urea nitrogen/Creatinine [Mass ratio] 20.6 mg/mg 10- [facility] No Panel InformationOrdered By: Gunnar Cummings on 02-17-2022 Estimated GFR (MDRD) Amer 75 mL/min >60 [facility] Comment on above: GFR Calc Estimated GFR (MDRD) Non-Af Amer 62 mL/min >60 [facility] Comment on above: Non- GFR Calc Serum or plasma calcium roseanne urement (mass/volume)Ordered By: Gunnar Cummings on 02-17-2022 Calcium [Mass/Vol] 8.9 mg/dL 8.5-10.1 [facility] Serum or plasma creatinine m easurement (mass/volume)Ordered By: Gunnar Cummings on 02-17-2022 Creatinine [Mass/Vol] 1.26 mg/dL 0.70-1.30 [facility] Comment on above: The validity of the calculated GFR & GFRAA in patients over 70 years has not been determined. Clinical correlation is essential. Serum or plasma urea nitroge n measurement (mass/volume)Ordered By: Gunnar Cummings on 02-17-2022 Urea nitrogen [Mass/Vol] 26 mg/dL 7-18 [facility] Thin prep Papanicolaou smear with manual screeningOrdered By: Gunnar Cummings on 02-17-2022 Thin prep Papanicolaou smear with manual screening 7 5-15 [facility] Absolute lymphocyte countOrd ered By: Gunnar Cummings on 02-10-2022 Lymphocytes Auto (Unsp spec) [#/Vol] 3.53 10*3/uL 0.83-4.51 [facility] Basophil percentageOrdered B y: Gunnar Cummings on 02-10-2022 Basophils/100 WBC (Bld) 0.9 % 0-1 [facility] Bilirubin [Mass/Vol] 0.80 mg/dL 0.20-1.00 [facility] Comment on above: For patients on eltr ombopag therapy, use of [place] TBIL is not recommended. Eosinophils/100 WBC (Bld) 3.8 % 0-5 [facility] Neutrophils (Bld) [#/Vol] 3.4 10*3/uL 2.0-7.7 [facility] Neutrophils/100 WBC (Bld) 42.8 % 47-70 [facility] Protein [Mass/Vol] 6.6 g/dL 6.4-8.2 [facility] WBC (Bld) [#/Vol] 7.9 10*3/uL 4.4-11.0 [facility] Blood erythrocytes count (nu mber/volume)Ordered By: Gunnar Cummings on 02-10-2022 RBC (Bld) [#/Vol] 4.36 10*6/uL 4.6-6.2 [facility] Blood hemoglobin measurement (mass/volume)Ordered By: Gunnar Cummings on 02-10-2022 Hemoglobin (Bld) [Mass/Vol] 13.8 g/dL 13.0-16.5 [facility] Blood lymphocytes/100 leukoc ytesOrdered By: Gunnar Cummings on 02-10-2022 Lymphocytes/100 WBC (Bld) 44.5 % 19-41 [facility] Blood monocytes/100 leukocyt esOrdered By: Gunnar Cummings on 02-10-2022 Monocytes/100 WBC (Bld) 7.4 % 0-10 [facility] Blood platelet mean volumeOr dered By: Gunnar Cummings on 02-10-2022 Platelet mean volume (Bld) [Entitic vol] 11.2 fL 6.2-12.0 [facility] Determination of erythrocyte mean corpuscular volume (MCV)Ordered By: Gunnar Cummings on 02-10-2022 MCV (RBC) [Entitic vol] 92.4 fL 80-94 [facility] Direct bilirubinOrdered By: Gunnar Cummings on 02-10-2022 Bilirubin.direct [Mass/Vol] 0.12 mg/dL 0.00-0.30 [facility] Hematocrit Auto (Bld) [Volum e fraction]Ordered By: Gunnar Cummings on 02-10-2022 Hematocrit (Bld) [Volume fraction] 40.3 % 40-54 [facility] Laboratory - Chemistry and C hemistry - challengeOrdered By: Gunnar Cummings on 02-10-2022 ALP [Catalytic activity/Vol] 69 U/L 45-117 [facility] ALT [Catalytic activity/Vol] 26 U/L 16-61 [facility] Globulin (S) [Mass/Vol] 3.3 g/dL 2.2-4.2 [facility] Laboratory - Hematology and Cell countsOrdered By: Gunnar Cummings on 02-10-2022 Erythrocyte distribution width (RBC) [Entitic vol] 41.3 fL 35.1-43.9 [facility] Erythrocyte distribution width (RBC) [Ratio] 12.7 % 11.6-14.6 [facility] Immature granulocytes/100 WBC (Bld) 0.600 % 0.0-0.9 [facility] Comment on above: IG% - Immature Granu locytes (promyelocytes, myelocytes and metamyelocytes) > 1% indicates that a LEFT SHIFT is Present. MCH (RBC) [Entitic mass] 31.7 pg 27.0-32.0 [facility] Nucleated RBC/100 WBC (Bld) [Ratio] 0 % 0-5 [facility] MCHC Auto (RBC) [Mass/Vol]Or dered By: Gunnar Cummings on 02-10-2022 MCHC (RBC) [Mass/Vol] 34.2 g/dL 32-36 [facility] Platelets bldOrdered By: Ar Cummings on 02-10-2022 Platelets (Bld) [#/Vol] 165 10*3/uL 150-450 [facility] Serum or plasma albumin roseanne urement (mass/volume)Ordered By: Gunnar Cummings on 02-10-2022 Albumin [Mass/Vol] 3.3 g/dL 3.2-5.0 [facility] Thin prep Papanicolaou smear with manual screeningOrdered By: Gunnar Cummings on 02-10-2022 Thin prep Papanicolaou smear with manual screening 14 U/L 15-37 [facility] Basophil percentageon 2021 Chloride [Moles/Vol] 100 mmol/L 98-107 [facility] Work Phone: Glucose [Mass/Vol] 120 mg/dL 74-106 [facility] Work Phone: Comment on above: Fasting Glucose resu lt from 100 to 125 mg/dL suggests IMPAIRED HOMEOSTASIS per A.D.A. criteria. Potassium [Moles/Vol] 4.7 mmol/L 3.5-5.1 [facility] Work Phone: Sodium [Moles/Vol] 136 mmol/L 136-145 [facility] Work Phone: Laboratory - Chemistry and C hemistry - challengeon 01-17-2022 CO2 [Moles/Vol] 28.0 mmol/L 21.0-32.0 [facility] Work Phone: Urea nitrogen/Creatinine [Mass ratio] 19.3 mg/mg 20 [facility] Work Phone: No Panel Informationon 01-17 Estimated GFR (MDRD) Amer 80 mL/min >60 [facility] Work Phone: Comment on above: GFR Calc Estimated GFR (MDRD) Non-Af Amer 67 mL/min >60 [facility] Work Phone: Comment on above: Non- GFR Calc Serum or plasma calcium roseanne urement (mass/volume)on 01-17-2022 Calcium [Mass/Vol] 8.9 mg/dL 8.5-10.1 [facility] Work Phone: Serum or plasma creatinine m easurement (mass/volume)on 01-17-2022 Creatinine [Mass/Vol] 1.19 mg/dL 0.70-1.30 [facility] Work Phone: Comment on above: The validity of the calculated GFR & GFRAA in patients over 70 years has not been determined. Clinical correlation is essential. Serum or plasma urea nitroge n measurement (mass/volume)on 01-17-2022 Urea nitrogen [Mass/Vol] 23 mg/dL 7-18 [facility] Work Phone: Thin prep Papanicolaou smear with manual screeningon 01-17-2022 Thin prep Papanicolaou smear with manual screening 8 5-15 [facility] Work Phone: Basophil percentageon 2021 Chloride [Moles/Vol] 107 mmol/L 98-107 [facility] Work Phone: Glucose [Mass/Vol] 116 mg/dL 74-106 [facility] Work Phone: Comment on above: Fasting Glucose resu lt from 100 to 125 mg/dL suggests IMPAIRED HOMEOSTASIS per A.D.A. criteria. Potassium [Moles/Vol] 4.8 mmol/L 3.5-5.1 [facility] Work Phone: Sodium [Moles/Vol] 137 mmol/L 136-145 [facility] Work Phone: Laboratory - Chemistry and C hemistry - challengeon 11-17-2021 CO2 [Moles/Vol] 25.0 mmol/L 21.0-32.0 [facility] Work Phone: Urea nitrogen/Creatinine [Mass ratio] 22.6 mg/mg 10-20 [facility] Work Phone: No Panel Informationon 11-17 Estimated GFR (MDRD) Amer 77 mL/min >60 [facility] Work Phone: Comment on above: GFR Calc Estimated GFR (MDRD) Non-Af Amer 63 mL/min >60 [facility] Work Phone: Comment on above: Non- GFR Calc Serum or plasma calcium roseanne urement (mass/volume)on 11-17-2021 Calcium [Mass/Vol] 8.6 mg/dL 8.5-10.1 [facility] Work Phone: Serum or plasma creatinine m easurement (mass/volume)on 11-17-2021 Creatinine [Mass/Vol] 1.24 mg/dL 0.70-1.30 [facility] Work Phone: Comment on above: The validity of the calculated GFR & GFRAA in patients over 70 years has not been determined. Clinical correlation is essential. Serum or plasma urea nitroge n measurement (mass/volume)on 11-17-2021 Urea nitrogen [Mass/Vol] 28 mg/dL 7-18 [facility] Work Phone: Thin prep Papanicolaou smear with manual screeningon 11-17-2021 Thin prep Papanicolaou smear with manual screening 5 5-15 [facility] Work Phone: ALLIED HEALTHon 10-03-2021 ALLIED HEALTH HNO ID: [id number] Author: Ирина Kolb RT(R) Service: Radiology Author Type: Technologist Type: Allied [...] RT Traci(R) October 02, 2021 11:38 PM [facility] ALLIED HEALTH HNO ID: [id number] Author: ALICIA Bucio Service: Radiology Author Type: [...] ALICIA Bucio October 02, 2021 11:04 PM [facility] CT BRAIN WO IVCONon 10-04-19 CT BRAIN WO IVCON * * *Final Report* * * DATE OF EXAM: Oct 02 2021 11:18PM [facility] 0504 - CT BRAIN WO IVCON / PROCEDURE REASON: Head trauma, minor (Age >= 65y) * * * * Physician Interpretation * * * * EXAMINATION: CT BRAIN WO IVCON, CT CERVICAL SPINE WO IVCON CLINICAL HISTORY: Head trauma, minor (Age >= 65y) (accession [id number]), Spine fracture, cervical, traumatic (accession [id number]) TECHNIQUE: CT head: Serial axial images without [...] anterior to C1. Multilevel facet degenerative changes. Top Installer (topogram) images: No other significant finding. IMPRESSION: No evidence of acute intracranial injury or calvarial fracture. Unchanged chronic intracranial findings as described. No evidence of acute cervical spine fracture or traumatic malalignment. Cervical spine degenerative changes as described. Online Marketing Specialist: PSCB Transcribe Date/Time: Oct 02 2021 11:48P Dictated by : YUNIER URIAS MD This examination was interpreted and the report reviewed and electronically signed by: YUNIER URIAS MD on Oct 02 2021 11:58PM EST [id number] [facility] CT CERVICAL SPINE WO IVCONon 10-03-2021 CT CERVICAL SPINE WO IVCON * * *Final Report* * * DATE OF EXAM: Oct 02 2021 11:18PM [facility] 0505 - CT CERVICAL SPINE WO IVCON / PROCEDURE REASON: Spine fracture, cervical, traumatic * * * * Physician Interpretation * * * * EXAMINATION: CT BRAIN WO IVCON, CT CERVICAL SPINE WO IVCON CLINICAL HISTORY: Head trauma, minor (Age >= 65y) (accession [id number]), Spine fracture, cervical, traumatic (accession [id number]) TECHNIQUE: CT head: Serial axial images without [...] anterior to C1. Multilevel facet degenerative changes. Top Installer (topogram) images: No other significant finding. IMPRESSION: No evidence of acute intracranial injury or calvarial fracture. Unchanged chronic intracranial findings as described. No evidence of acute cervical spine fracture or traumatic malalignment. Cervical spine degenerative changes as described. Online Marketing Specialist: PSCFrancisco Javier Transcribe Date/Time: Oct 02 2021 11:48P Dictated by : UYNIER URIAS MD This examination was interpreted and the report reviewed and electronically signed by: YUNIER URIAS MD on Oct 02 2021 11:58PM EST [id number] [facility] ED PROV NOTEon 10-03-2021 ED PROV NOTE HNO ID: [id number] Author: Tresa Minor PA-C Service: Emergency Medicine Author Type: Physician Sales And Marketing Representative Type: ED Provider Notes Filed: 10/03/2021 1:03 [...] History provided by: Patient and medical records political aide used: No PAST MEDICAL HISTORY Diagnosis Date [...] imaging to further (more content not included)... [facility] XR ANKLE 3V AP/LAT/OBL LTon 10-03-2021 [...] history should include: Left lower extremity pain. Online Marketing Specialist: EZ Transcribe Date/Time: Oct 14 2021 8:43A Dictated by : BAR CASEY MD This examination was interpreted and the report reviewed and electronically signed by: BAR CASEY MD on Oct 03 2021 12:09AM EST This document has been addended by: BAR CASEY MD on Oct 14 2021 8:44AM EST [id number] [facility] XR KNEE 4V AP/LAT/OBLS LTon 10-03-2021 XR [...] history should include: Left lower extremity pain. Online Marketing Specialist: PSCB Transcribe Date/Time: Oct 14 2021 8:43A Dictated by : BAR CASEY MD This examination was interpreted and the report reviewed and electronically signed by: BAR CASEY MD on Oct 03 2021 12:09AM EST This document has been addended by: BAR CASEY MD on Oct 14 2021 8:44AM EST [id number] [facility] XR PELVIS 1V APon 10-03-2021 XR PELVIS [...] history should include: Left lower extremity pain. Online Marketing Specialist: EZ Transcribe Date/Time: Oct 14 2021 8:43A Dictated by : BAR CASEY MD This examination was interpreted and the report reviewed and electronically signed by: BAR CASEY MD on Oct 03 2021 12:09AM EST This document has been addended by: BAR CASEY MD on Oct 14 2021 8:44AM EST [id number] [facility] XR TIBIA FIBULA 2V AP/LAT LT on [...] history should include: Left lower extremity pain. Online Marketing Specialist: EZ Transcribe Date/Time: Oct 14 2021 8:43A Dictated by : BAR CASEY MD This examination was interpreted and the report reviewed and electronically signed by: BAR CASEY MD on Oct 03 2021 12:09AM EST This document has been addended by: BAR CASEY MD on Oct 14 2021 8:44AM EST [id number] Normal [facility] Basophil percentageon 2021 Cholesterol [Mass/Vol] 137 mg/dL <200 [facility] Work Phone: Comment on above: <200 mg/dL Desirable 200-240 mg/dL Borderline >240 mg/dL High Risk Triglyceride [Mass/Vol] 116 mg/dL <199 [facility] Work Phone: Comment on above: The drugs N-Acetylcy steine and Metamizole may falsely depress this assay.Serum Triglycerides Reference Interval Normal <150 mg/dL Borderline high 150 - 199 mg/dL High 200 - 499 mg/dL Very High > or = 500 mg/dL WBC (Bld) [#/Vol] 9.3 10*3/uL 4.4-11.0 [facility] Work Phone: Blood erythrocytes count (nu mber/volume)on 09-27-2021 RBC (Bld) [#/Vol] 4.63 10*6/uL 4.6-6.2 [facility]: Blood hemoglobin measurement (mass/volume)on 09-27-2021 Hemoglobin (Bld) [Mass/Vol] 14.7 g/dL 13.0-16.5 [facility] Work Phone: Blood platelet mean volumeon 09-27-2021 Platelet mean volume (Bld) [Entitic vol] 11.7 fL 6.2-12.0 [facility] Work Phone: Determination of erythrocyte mean corpuscular volume (MCV)on 09-27-2021 MCV (RBC) [Entitic vol] 94.2 fL 80-94 [facility] Work Phone: Hematocrit Auto (Bld) [Volum e fraction]on 09-27-2021 Hematocrit (Bld) [Volume fraction] 43.6 % 40-54 [facility] Work Phone: Laboratory - Hematology and Cell countson 09-27-2021 Erythrocyte distribution width (RBC) [Entitic vol] 43.9 fL 35.1-43.9 [facility] Work Phone: [phone] Erythrocyte distribution width (RBC) [Ratio] 12.9 % 11.6-14.6 [facility] Work Phone: [phone] MCH (RBC) [Entitic mass] 31.7 pg 27.0-32.0 [facility] Work Phone: MCHC Auto (RBC) [Mass/Vol]on 09-27-2021 MCHC (RBC) [Mass/Vol] 33.7 g/dL 32-36 [facility] Work Phone: No Panel Informationon 09-27 Valproic Acid (Depakene) Level 56 ug/mL 50-100 [facility] Work Phone: Platelets bldon 09-27-2021 Platelets (Bld) [#/Vol] 201 10*3/uL 150-450 [facility] Work Phone: Serum or plasma cholesterol in HDL measurement (mass/volume)on 09-27-2021 Cholesterol in HDL [Mass/Vol] 47 mg/dL >40 [facility] Work Phone: Comment on above: The drugs N-Acetylcy steine and Metamizole may falsely depress this assay. Reference Range HDL <40 mg/dL Low HDL Cholesterol HDL >or= 60 mg/dL High HDL Cholesterol Serum or plasma cholesterol in VLDL measurement (mass/volume)on 09-27-2021 Cholesterol in VLDL [Mass/Vol] 23 mg/dL 5-40 [facility] Work Phone: Serum or plasma low density lipoprotein (LDL) cholesterol measurement (mass/volume)on 09-27-2021 Cholesterol in LDL [Mass/Vol] 67 mg/dL 0-130 [facility] Work Phone: Basophil percentageon 2021 Chloride [Moles/Vol] 105 mmol/L 98-107 [facility] Work Phone: Glucose [Mass/Vol] 125 mg/dL 74-106 [facility] Work Phone: Comment on above: Fasting Glucose resu lt from 100 to 125 mg/dL suggests IMPAIRED HOMEOSTASIS per A.D.A. criteria. Potassium [Moles/Vol] 4.6 mmol/L 3.5-5.1 [facility] Work Phone: Sodium [Moles/Vol] 138 mmol/L 136-145 [facility] Work Phone: Laboratory - Chemistry and C hemistry - challengeon 09-17-2021 CO2 [Moles/Vol] 28.0 mmol/L 21.0-32.0 [facility] Work Phone: Urea nitrogen/Creatinine [Mass ratio] 19.3 mg/mg 10-20 [facility] Work Phone: No Panel Informationon 09-17 Estimated GFR (MDRD) Amer 81 mL/min >60 [facility] Work Phone: Comment on above: GFR Calc Estimated GFR (MDRD) Non-Af Amer 67 mL/min >60 [facility] Work Phone: Comment on above: Non- GFR Calc Vitamin D 25-Hydroxy 65.4 ng/mL [facility] Work Phone: Comment on above: Vitamin D 25(OH) Sta tus Range Deficiency <20 ng/mL (50nmol/L) Insufficiency 20 - 30 ng/mL (50 - 75 nmol/L) Sufficiency 30 - 100 ng/mL (75 - 250 nmol/L) Toxicity >100 ng/mL (>250 nmol/L) Serum or plasma calcium roseanne urement (mass/volume)on 09-17-2021 Calcium [Mass/Vol] 9.2 mg/dL 8.5-10.1 [facility] Work Phone: Serum or plasma creatinine m easurement (mass/volume)on 09-17-2021 Creatinine [Mass/Vol] 1.19 mg/dL 0.70-1.30 [facility] Work Phone: Comment on above: The validity of the calculated GFR & GFRAA in patients over 70 years has not been determined. Clinical correlation is essential. Serum or plasma urea nitroge n measurement (mass/volume)on 09-17-2021 Urea nitrogen [Mass/Vol] 23 mg/dL 7-18 [facility] Work Phone: Thin prep Papanicolaou smear with manual screeningon 09-17-2021 Thin prep Papanicolaou smear with manual screening 5 5-15 [facility] Work Phone: Basophil percentageon 2021 Chloride [Moles/Vol] 105 mmol/L 98-107 [facility] Work Phone: Glucose [Mass/Vol] 101 mg/dL 74-106 [facility] Work Phone: Comment on above: Fasting Glucose resu lt from 100 to 125 mg/dL suggests IMPAIRED HOMEOSTASIS per A.D.A. criteria. Potassium [Moles/Vol] 3.5 mmol/L 3.5-5.1 [facility] Work Phone: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 [facility] 01-31-2024 08:18-0400 Respiratory rate 18 /min Julissa Claudia DO Work Phone: [facility] 01-31-2024 08:18-0400 Systolic blood pressure 106 mm[Hg] Julissa Claudia DO Work Phone: [facility] 01-24-2024 10:12-0400 Body temperature 96.8 [degF] Julissa Claudia DO Work Phone: [facility] 01-24-2024 10:12-0400 Diastolic blood pressure 78 mm[Hg] Julissa Claudia DO Work Phone: [facility] 01-24-2024 10:12-0400 Heart rate 89 /min Julissa Claudia DO Work Phone: [facility] 01-24-2024 10:12-0400 Respiratory rate 18 /min Julissa Claudia DO Work Phone: [facility] 01-24-2024 10:12-0400 Systolic blood pressure 110 mm[Hg] Julissa Claudia DO Work Phone: [facility] 01-17-2024 09:53-0400 Body temperature 97.5 [degF] Julissa Claudia DO Work Phone: [facility] 01-17-2024 09:53-0400 Diastolic blood pressure 93 mm[Hg] Julissa Claudia DO Work Phone: [facility] 01-17-2024 09:53-0400 Heart rate 91 /min Julissa Claudia DO Work Phone: [facility] 01-17-2024 09:53-0400 Respiratory rate 20 /min Julissa Claudia DO Work Phone: [facility] 01-17-2024 09:53-0400 Systolic blood pressure 131 mm[Hg] Julissa Claudia DO Work Phone: [facility] 01-10-2024 09:29-0400 Body temperature 97.3 [degF] Julissa Claudia DO Work Phone: [facility] 01-10-2024 09:29-0400 Diastolic blood pressure 78 mm[Hg] Julissa Claudia DO Work Phone: [facility] 01-10-2024 09:29-0400 Heart rate 92 /min Julissa Claudia DO Work Phone: [facility] 01-10-2024 09:29-0400 Respiratory rate 18 /min Julissa Claudia DO Work Phone: [facility] 01-10-2024 09:29-0400 Systolic blood pressure 121 mm[Hg] Julissa Claudia DO Work Phone: [facility] 01-03-2024 15:08-0400 Body temperature 97.81 [degF] Julissa Claudia DO Work Phone: [facility] 01-03-2024 15:08-0400 Diastolic blood pressure 66 mm[Hg] Julissa Claudia DO Work Phone: [facility] 01-03-2024 15:08-0400 Heart rate 76 /min Julissa Claudia DO Work Phone: [facility] 01-03-2024 15:08-0400 Respiratory rate 18 /min Julissa Claudia DO Work Phone: [facility] 01-03-2024 15:08-0400 Systolic blood pressure 100 mm[Hg] Julissa Claudia DO Work Phone: [facility] 12-27-2023 13:43-0400 Body temperature 97.5 [degF] Julissa Claudia DO Work Phone: [facility] 12-27-2023 13:43-0400 Diastolic blood pressure 65 mm[Hg] Julissa Claudia DO Work Phone: [facility] 12-27-2023 13:43-0400 Heart rate 62 /min Julissa Claudia DO Work Phone: [facility] 12-27-2023 13:43-0400 Respiratory rate 18 /min Julissa Claudia DO Work Phone: [facility] 12-27-2023 13:43-0400 Systolic blood pressure 111 mm[Hg] Julissa Claudia DO Work Phone: [facility] 12-20-2023 11:10-0400 Body temperature 98.01 [degF] Julissa Claudia DO Work Phone: [facility] 12-20-2023 11:10-0400 Diastolic blood pressure 74 mm[Hg] Julissa Claudia DO Work Phone: [facility] 12-20-2023 11:10-0400 Heart rate 64 /min Julissa Claudia DO Work Phone: [facility] 12-20-2023 11:10-0400 Respiratory rate 18 /min Julissa Claudia DO Work Phone: [facility] 12-20-2023 11:10-0400 Systolic blood pressure 108 mm[Hg] Julissa Claudia DO Work Phone: [facility] 12-13-2023 15:19-0400 Body temperature 97.5 [degF] Julissa Claudia DO Work Phone: [facility] 12-13-2023 15:19-0400 Diastolic blood pressure 68 mm[Hg] Julissa Claudia DO Work Phone: [facility] 12-13-2023 15:19-0400 Heart rate 62 /min Julissa Claudia DO Work Phone: [facility] 12-13-2023 15:19-0400 Systolic blood pressure 109 mm[Hg] Julissa Claudia DO Work Phone: [employer] [facility] 12-06-2023 10:53-0400 Body temperature 97.9 [degF] Julissa Claudia DO Work Phone: [employer] [facility] 12-06-2023 10:53-0400 Diastolic blood pressure 63 mm[Hg] Julissa Claudia DO Work Phone: [employer] [facility] 12-06-2023 10:53-0400 Heart rate 62 /min Julissa Claudia DO Work Phone: [employer] [facility] 12-06-2023 10:53-0400 Respiratory rate 18 /min Julissa Claudia DO Work Phone: [employer] [facility] 12-06-2023 10:53-0400 Systolic blood pressure 94 mm[Hg] Julissa Claudia DO Work Phone: [employer] [facility] 11-29-2023 10:35-0400 Body temperature 97.11 [degF] Julissa Claudia DO Work Phone: [facility] 11-29-2023 10:35-0400 Diastolic blood pressure 73 mm[Hg] Julissa Claudia DO Work Phone: [facility] 11-29-2023 10:35-0400 Heart rate 66 /min Julissa Claudia DO Work Phone: [facility] 11-29-2023 10:35-0400 Systolic blood pressure 114 mm[Hg] Julissa Claudia DO Work Phone: [facility] 11-22-2023 10:57-0400 Body temperature 97.39 [degF] Julissa Claudia DO Work Phone: [facility] 11-22-2023 10:57-0400 Diastolic blood pressure 75 mm[Hg] Julissa Claudia DO Work Phone: [facility] 11-22-2023 10:57-0400 Heart rate 79 /min Julissa Claudia DO Work Phone: [facility] 11-22-2023 10:57-0400 Systolic blood pressure 106 mm[Hg] Julissa Claudia DO Work Phone: [facility] 11-17-2023 10:35-0400 Body temperature 97.11 [degF] Wr Schedule [facility] 11-17-2023 10:35-0400 Diastolic blood pressure 83 mm[Hg] Wr Schedule [facility] 11-17-2023 10:35-0400 Heart rate 81 /min [facility] Schedule [facility] 11-17-2023 10:35-0400 Respiratory rate 18 /min Wr Schedule [facility] 11-17-2023 10:35-0400 Systolic blood pressure 119 mm[Hg] Wr Schedule [facility] 11-15-2023 11:07-0400 Body temperature 97.59 [degF] Julissa Claudia DO Work Phone: [facility] 11-15-2023 11:07-0400 Diastolic blood pressure 69 mm[Hg] Julissa Claudia DO Work Phone: [facility] 11-15-2023 11:07-0400 Heart rate 62 /min Julissa Claudia DO Work Phone: [facility] 11-15-2023 11:07-0400 Respiratory rate 18 /min Julissa Claudia DO Work Phone: [facility] 11-15-2023 11:07-0400 Systolic blood pressure 102 mm[Hg] Julissa Claudia DO Work Phone: [facility] 11-08-2023 09:45-0400 Body temperature 98.29 [degF] Julissa Claudia DO Work Phone: [facility] 11-08-2023 09:45-0400 Diastolic blood pressure 71 mm[Hg] Julissa Claudia DO Work Phone: [facility] 11-08-2023 09:45-0400 Heart rate 91 /min Julissa Claudia DO Work Phone: [facility] 11-08-2023 09:45-0400 Respiratory rate 20 /min Julissa Claudia DO Work Phone: [facility] 11-08-2023 09:45-0400 Systolic blood pressure 140 mm[Hg] Julissa Claudia DO Work Phone: [facility] 11-01-2023 08:53-0400 Body temperature 98.01 [degF] Julissa Claudia DO Work Phone: [facility] 11-01-2023 08:53-0400 Diastolic blood pressure 75 mm[Hg] Julissa Claudia DO Work Phone: [facility] 11-01-2023 08:53-0400 Heart rate 155 /min Julissa Claudia DO Work Phone: [facility] 11-01-2023 08:53-0400 Respiratory rate 18 /min Julissa Claduia DO Work Phone: [facility] 11-01-2023 08:53-0400 Systolic blood pressure 101 mm[Hg] Julissa Claudia DO Work Phone: [facility] 10-25-2023 08:51-0400 Body temperature 96.8 [degF] Julissa Claudia DO Work Phone: [facility] 10-25-2023 08:51-0400 Diastolic blood pressure 74 mm[Hg] Julissa Claudia DO Work Phone: [facility] 10-25-2023 08:51-0400 Heart rate 63 /min Julissa Claudia DO Work Phone: [facility] 10-25-2023 08:51-0400 Respiratory rate 18 /min Julissa Claudia DO Work Phone: [facility] 10-25-2023 08:51-0400 Systolic blood pressure 119 mm[Hg] Julissa Claudia DO Work Phone: [facility] 10-18-2023 10:30-0400 Body temperature 97.2 [degF] Julissa Claudia DO Work Phone: [facility] 10-18-2023 10:30-0400 Diastolic blood pressure 94 mm[Hg] Julissa Claudia DO Work Phone: [facility] 10-18-2023 10:30-0400 Heart rate 69 /min Julissa Claudia DO Work Phone: [facility] 10-18-2023 10:30-0400 Respiratory rate 18 /min Julissa Claudia DO Work Phone: [facility] 10-18-2023 10:30-0400 Systolic blood pressure 139 mm[Hg] Julissa Claudia DO Work Phone: [facility] 10-11-2023 08:55-0400 Body temperature 97.5 [degF] Julissa Claudia DO Work Phone: [employer] [facility] 10-11-2023 08:55-0400 Diastolic blood pressure 79 mm[Hg] Julissa Claudia DO Work Phone: [employer] [facility] 10-11-2023 08:55-0400 Heart rate 79 /min Julissa Claudia DO Work Phone: [employer] [facility] 10-11-2023 08:55-0400 Respiratory rate 18 /min Julissa Claudia DO Work Phone: [facility] 10-11-2023 08:55-0400 Systolic blood pressure 122 mm[Hg] Julissaamanda Nelsone DO Work Phone: [facility] 10-04-2023 13:55-0400 Body height 177.8 cm Julissaamanda Nelsone DO Work Phone: [facility] 10-04-2023 13:55-0400 Body mass index (BMI) [Ratio] 36.3 kg/m2 Julissaamanda Nelsone DO Work Phone: [facility] 10-04-2023 13:55-0400 Body temperature 97.7 [degF] Julissaamanda Nelsone DO Work Phone: [facility] 10-04-2023 13:55-0400 Body weight 114.76 kg Julissa Nelsone DO Work Phone: [facility] 10-04-2023 13:55-0400 Diastolic blood pressure 70 mm[Hg] Julissaamanda Nelsone DO Work Phone: [facility] 10-04-2023 13:55-0400 Heart rate 79 /min Julissa Taylor DO Work Phone: [facility] 10-04-2023 13:55-0400 Systolic blood pressure 110 mm[Hg] Julissaamanda Nelsone DO Work Phone: [facility] 09-27-2023 13:13-0400 Body height 177.8 cm Julissa Nelsone DO Work Phone: [facility] 09-27-2023 13:13-0400 Body mass index (BMI) [Ratio] 36.3 kg/m2 Julissaamanda Nelsone DO Work Phone: [facility] 09-27-2023 13:13-0400 Body temperature 97.7 [degF] Julissa Nelsone DO Work Phone: [facility] 09-27-2023 13:13-0400 Body weight 114.76 kg Julissaamanda Nelsone DO Work Phone: [facility] 09-27-2023 13:13-0400 Diastolic blood pressure 63 mm[Hg] Julissa Claudia DO Work Phone: [facility] 09-27-2023 13:13-0400 Heart rate 88 /min Julissaamanda Nelsone DO Work Phone: [facility] 09-27-2023 13:13-0400 Systolic blood pressure 94 mm[Hg] Julissa Claudia DO Work Phone: [facility] 09-20-2023 14:34-0400 Body height 177.8 cm Julissaamanda Nelsone DO Work Phone: [facility] 09-20-2023 14:34-0400 Body mass index (BMI) [Ratio] 36.3 kg/m2 Julissaamanda Nelsone DO Work Phone: [facility] 09-20-2023 14:34-0400 Body temperature 97.2 [degF] Julissa Claudia DO Work Phone: [facility] 09-20-2023 14:34-0400 Body weight 114.76 kg Julissaamanda Nelsone DO Work Phone: [facility] 09-20-2023 14:34-0400 Diastolic blood pressure 75 mm[Hg] Julissa Claudia DO Work Phone: [facility] 09-20-2023 14:34-0400 Heart rate 71 /min Julissaamanda Nelsone DO Work Phone: [facility] 09-20-2023 14:34-0400 Systolic blood pressure 115 mm[Hg] Julissa Claudia DO Work Phone: [facility] 09-13-2023 14:17-0400 Body temperature 97.5 [degF] Julissa Claudia DO Work Phone: [facility] 09-13-2023 14:17-0400 Diastolic blood pressure 60 mm[Hg] Julissa Claudia DO Work Phone: [facility] 09-13-2023 14:17-0400 Heart rate 58 /min Julissaamanda Nelsone DO Work Phone: [facility] 09-13-2023 14:17-0400 Respiratory rate 20 /min Julissa Claudia DO Work Phone: [facility] 09-13-2023 14:17-0400 Systolic blood pressure 105 mm[Hg] Julissa Taylor DO Work Phone: [facility] 09-06-2023 13:34-0400 Body height 177.8 cm Julissa Taylor DO Work Phone: [facility] 09-06-2023 13:34-0400 Body mass index (BMI) [Ratio] 36.3 kg/m2 Julissa Taylor DO Work Phone: [facility] 09-06-2023 13:34-0400 Body temperature 97.59 [degF] Julissa Taylor DO Work Phone: [facility] 09-06-2023 13:34-0400 Body weight 114.76 kg Julissa Taylor DO Work Phone: [facility] 09-06-2023 13:34-0400 Diastolic blood pressure 80 mm[Hg] Julissa Taylor DO Work Phone: [facility] 09-06-2023 13:34-0400 Heart rate 57 /min Julissa Taylor DO Work Phone: [facility] 09-06-2023 13:34-0400 Systolic blood pressure 119 mm[Hg] Julissa Taylor DO Work Phone: [facility] 08-30-2023 09:20-0400 Body height 177.8 cm Julissa Taylor DO Work Phone: [facility] 08-30-2023 09:20-0400 Body mass index (BMI) [Ratio] 36.3 kg/m2 Julissa Taylor DO Work Phone: [facility] 08-30-2023 09:20-0400 Body temperature 97.39 [degF] Julissa Taylor DO Work Phone: [facility] 08-30-2023 09:20-0400 Body weight 114.76 kg Julissa Taylor DO Work Phone: [facility] 08-30-2023 09:20-0400 Diastolic blood pressure 86 mm[Hg] Julissa Taylor DO Work Phone: [facility] 08-30-2023 09:20-0400 Heart rate 79 /min Julissa Taylor DO Work Phone: [facility] 08-30-2023 09:20-0400 Systolic blood pressure 126 mm[Hg] Julissa Taylor DO Work Phone: [facility] 08-23-2023 14:03-0400 Body mass index (BMI) [Ratio] 36.3 kg/m2 Julissa Taylor DO Work Phone: [facility] 08-23-2023 14:03-0400 Body temperature 98.2 [degF] Julissa Taylor DO Work Phone: [facility] 08-23-2023 14:03-0400 Body weight 114.76 kg Julissa Taylor DO Work Phone: [facility] 08-23-2023 14:03-0400 Diastolic blood pressure 67 mm[Hg] Julissa Taylor DO Work Phone: [facility] 08-23-2023 14:03-0400 Heart rate 82 /min Julissa Taylor DO Work Phone: [facility] 08-23-2023 14:03-0400 Respiratory rate 18 /min Julissa Taylor DO Work Phone: [facility] 08-23-2023 14:03-0400 Systolic blood pressure 93 mm[Hg] Julissa Taylor DO Work Phone: [facility] 06-23-2023 03:03-0400 Diastolic blood pressure 90 mm[Hg] Fred Holloway MD Work Phone: [employer] [facility] 06-23-2023 03:03-0400 Heart rate 81 /min Fred Holloway MD Work Phone: [employer] [facility] 06-23-2023 03:03-0400 Respiratory rate 14 /min Fred Holloway MD Work Phone: [facility] 06-23-2023 03:03-0400 SaO2% (BldA) [Mass fraction] 96 % Fred Holloway MD Work Phone: [facility] 06-23-2023 03:03-0400 Systolic blood pressure 153 mm[Hg] Fred Holloway MD Work Phone: [facility] 06-22-2023 21:52-0400 Body height 177.8 cm Fred Holloway MD Work Phone: [facility] 06-22-2023 21:52-0400 Body temperature 97.9 [degF] Fred Holloway MD Work Phone: [facility] 06-16-2023 14:09-0500 Diastolic blood pressure 68 mm[Hg] Chhaya Saldana MD Work Phone: [facility] 06-16-2023 14:09-0500 Heart rate 56 /min Chhaya Saldana MD Work Phone: [facility] 06-16-2023 14:09-0500 SaO2% (BldA) [Mass fraction] 96 % Chhaya Saldana MD Work Phone: [facility] 06-16-2023 14:09-0500 Systolic blood pressure 93 mm[Hg] Chhaya Saldana MD Work Phone: [facility] 11-17-2022 13:14-0400 Body height 185.4 cm Jesús Ellis MD Work Phone: [facility] 11-17-2022 13:14-0400 Body mass index (BMI) [Ratio] 33.38 kg/m2 Jesús Ellis MD Work Phone: [facility] 11-17-2022 13:14-0400 Body temperature 97.9 [degF] Jesús Ellis MD Work Phone: [facility] 11-17-2022 13:14-0400 Body weight 114.76 kg Jesús Ellis MD Work Phone: [facility] 11-17-2022 13:14-0400 Diastolic blood pressure 80 mm[Hg] Jesús Ellis MD Work Phone: [facility] 11-17-2022 13:14-0400 Heart rate 57 /min Jesús Ellis MD Work Phone: [facility] 11-17-2022 13:14-0400 Respiratory rate 16 /min Jesús Ellis MD Work Phone: [facility] 11-17-2022 13:14-0400 SaO2% (BldA) [Mass fraction] 96 % Jesús Ellis MD Work Phone: [facility] 11-17-2022 13:14-0400 Systolic blood pressure 125 mm[Hg] Jesús Ellis MD Work Phone: [facility] 11-16-2022 09:51-0400 Body mass index (BMI) [Ratio] 32.14 kg/m2 Josette Joe PA-C Work Phone: [facility] 11-16-2022 09:51-0400 Body temperature 98.01 [degF] Josette Joe PA-C Work Phone: [facility] 11-16-2022 09:51-0400 Body weight 107.5 kg Josette Joe PA-C Work Phone: [facility] 11-16-2022 09:51-0400 Diastolic blood pressure 60 mm[Hg] Josette Joe PA-C Work Phone: [facility] 11-16-2022 09:51-0400 Heart rate 60 /min Josette Joe PA-C Work Phone: [facility] 11-16-2022 09:51-0400 Systolic blood pressure 90 mm[Hg] Josette Joe PA-C Work Phone: [employer] [facility] 07-29-2022 11:58-0400 Body temperature 98.2 [degF] Brady Powell MD Work Phone: [facility] 07-29-2022 11:58-0400 Diastolic blood pressure 56 mm[Hg] Brady Powell MD Work Phone: [facility] 07-29-2022 11:58-0400 Heart rate 68 /min Brady Powell MD Work Phone: [employer] [facility] 07-29-2022 11:58-0400 Systolic blood pressure 102 mm[Hg] Brady Powell MD Work Phone: [employer] [facility] 06-23-2022 13:05-0400 Body height 188 cm Tresa Smallwood DO Work Phone: [employer] [facility] 06-23-2022 12:03-0400 Body temperature 98.91 [degF] Tresa Smallwood DO Work Phone: [employer] [facility] 06-23-2022 12:03-0400 Diastolic blood pressure 95 mm[Hg] Tresa Smallwood DO Work Phone: [employer] [facility] 06-23-2022 12:03-0400 Heart rate 97 /min Tresa Smallwood DO Work Phone: [email or web address] 06-23-2022 12:03-0400 Respiratory rate 18 /min Tresa Smallwood DO Work Phone: [employer] [facility] 06-23-2022 12:03-0400 SaO2% (BldA) [Mass fraction] 95 % Tresa Smallwood DO Work Phone: [employer] [facility] 06-23-2022 12:03-0400 Systolic blood pressure 127 mm[Hg] Tresa Smallwood DO Work Phone: [employer] [facility] 06-22-2022 06:00-0400 Body mass index (BMI) [Ratio] 31.83 kg/m2 Tresa Smallwood DO Work Phone: [email or web address] 06-22-2022 06:00-0400 Body weight 112.5 kg Tresa Smallwood DO Work Phone: [employer] [facility] 06-16-2022 09:44-0500 SaO2% (BldA) [Mass fraction] 94.0 % Tresa Smallwood DO Work Phone: [email or web address] 06-26-2020 19:13-0400 BP Diastolic 92 mm[Hg] Loki Hernandez [facility] Work Phone: 06-26-2020 19:13-0400 BP Systolic 183 mm[Hg] Loki CORTES Work Phone: 06-26-2020 19:13-0400 Pulse (Heart Rate) 80 /min Loki CORTES Work Phone: 06-26-2020 19:13-0400 Pulse Oximetry 98 % Loki CORTES Work Phone: 06-26-2020 19:13-0400 Respiratory Rate 18 /min Loki CORTES Work Phone: 06-26-2020 17:20-0400 Body Temperature 97.9 [degF] Loki CORTES Work Phone: 02-19-2020 20:13-0500 Body Temperature 98.2 [degF] Melly Nunezanda [facility] [place] 02-19-2020 20:13-0500 BP Diastolic 84 mm[Hg] [facility] [place] 02-19-2020 20:13-0500 BP Systolic 146 mm[Hg] Melly [facility] , [place] 02-19-2020 20:13-0500 Pulse (Heart Rate) 85 /min Melly [facility], [place] 02-19-2020 20:13-0500 Pulse Oximetry 95 % [facility] [place] 02-19-2020 20:13-0500 Respiratory Rate 18 /min [facility] [place] 04-05-2019 17:19-0500 Diastolic blood pressure 76 mm[Hg] Jesús Ellis MD Work Phone: [employer] Work Phone: 04-05-2019 17:19-0500 Respiratory rate 16 /min Jesús Ellis MD Work Phone: [employer] Work Phone: 04-05-2019 17:19-0500 Systolic blood pressure 114 mm[Hg] Jesús Ellis MD Work Phone: [employer] Work Phone: 04-05-2019 17:18-0500 Heart rate 80 [...] Date Encounter Type Care Provider Facility Start: 10-21-2024 ambulatory Gunnar WICK Fac ility:[facility] Start: 09-20-2024 ambulatory Demetrius WICK Faci lity:[facility] Start: 07-29-2024 End: 07-29-2024 ambulatory Demetrius WICK [facility] Work Phone: Start: 07-29-2024 End: 07-29-2024 Departed Referred Demetrius Fenton -Clint ZUNIGA Start: 07-29-2024 Registered Referred Demetrius Fenton - Clint ZUNIGA Start: 07-29-2024 End: 07-29-2024 ambulatory Demetrius WICK Facility:[facility] Start: 07-22-2024 End: 07-22-2024 ambulatory Demetrius WICK [facility] Work Phone: Start: 07-22-2024 End: 07-22-2024 Departed Referred Demetrius [place] [facility] [employer] Start: 07-22-2024 Registered Referred Demetrius Lilliesonaj Fox [place] [facility] Start: 07-22-2024 End: 07-22-2024 ambulatory Demetrius WICK Facility:[facility] Start: 07-08-2024 End: 07-08-2024 Patient encounter procedure Chhaya Saldana MD Work Phone: Neurology Comment on above: Chronic daily headac he (Primary Dx); Traumatic brain injury with loss of consciousness, sequela Start: 07-08-2024 End: 07-08-2024 ambulatory DEMETRIUS FENTON Facility:[facility] Start: 07-08-2024 End: 07-08-2024 Departed Referred Demetrius Lilliesonja [place] [facility] Start: 07-08-2024 Registered Referred Demetrius Lilliesonja Dominique [place] [facility] [employer] Start: 07-08-2024 End: 07-08-2024 ambulatory Demetrius WICK Facility:[facility] Start: 06-10-2024 End: 06-10-2024 ambulatory Demetrius WICK [facility] Work Phone: Start: 06-10-2024 End: 06-10-2024 Departed Referred Demetrius Lilliesonja [place] [facility] [employer] Start: 06-10-2024 End: 06-10-2024 ambulatory Demetrius WICK Facility:[facility] Start: 04-09-2024 End: 04-09-2024 Office outpatient visit 15 minutes Danielle Arreola DPM Work Phone: [facility] [...] Start: 04-09-2024 End: 04-09-2024 ambulatory DEMETRIUS FENTON [facility] Start: 03-27-2024 End: 03-27-2024 Office outpatient visit 15 minutes Julissa Taylor DO Work Phone: [facility] Dominique Gar Comment on above: 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) (Primary Dx); Peripheral venous insufficiency [I87.2] Start: 03-27-2024 End: 03-27-2024 ambulatory DEMETRIUS FENTON [facility] Start: 03-20-2024 End: [facility] Start: 03-18-2024 ambulatory Demetrius Fenton SHAMIKA Faci lity:[facility] Start: 03-13-2024 End: 03-13-2024 Subsequent hospital visit by physician Julissa Taylor DO Work Phone: [facility] Comment on above: Arrived Start: 03-13-2024 End: 03-13-2024 ambulatory DEMETRIUS FENTON [facility] Start: 03-13-2024 ambulatory Demetrius WICK Faci lity:[facility] Start: 03-13-2024 Registered Referred Demetrius Fenton - [place] [facility] Start: 03-06-2024 End: 03-06-2024 Subsequent hospital visit by physician Anai Fox CNP Work Phone: [facility] [...] insufficiency [I87.2] Start: 03-06-2024 End: 03-06-2024 ambulatory [facility] Start: 02-28-2024 End: 02-28-2024 Subsequent hospital visit by physician Julissa Taylor DO Work Phone: [facility] - [facility] Comment on above: 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 Start: 02-21-2024 End: 02-21-2024 Subsequent hospital visit by physician Julissa Taylor DO Work Phone: [facility] Comment on above: Arrived Start: 02-21-2024 End: 02-21-2024 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) (Primary Dx); Venous insufficiency (chronic) (peripheral); Decreased mobility Start: 01-31-2024 End: 01-31-2024 Office outpatient visit 15 minutes Julissa Taylor DO Work Phone: [facility] - [facility] Comment on above: 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) (Primary Dx); Venous insufficiency (chronic) (peripheral); Decreased mobility Start: 01-31-2024 End: 01-31-20[facility] Start: 01-29-2024 End: 01-29-2024 ambulatory Demetrius Fenton [facility] Facility:[facility] Start: 01-24-2024 End: 01-24-2024 [facility] Start: 01-24-2024 End: 01-24-2024 Office outpatient visit 15 minutes Julissa Taylor DO Work Phone: [facility] Comment on above: 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) (Primary Dx); Venous insufficiency (chronic) (peripheral); Decreased mobility Start: 01-17-2024 End: 01-17-2024 ambulatory [facility]US [facility] Start: 01-17-2024 End: 01-17-2024 Office outpatient visit 15 minutes Julissa Taylor DO Work Phone: [facility] - [facility] Comment on above: 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) (Primary Dx); Venous insufficiency (chronic) (peripheral); Decreased mobility Start: 01-10-2024 End: 01-10-2024 [facility] Start: 01-10-2024 End: 01-10-2024 Office outpatient visit 15 minutes Julissa Taylor DO Work Phone: [facility] Comment on above: 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) (Primary Dx); Venous insufficiency (chronic) (peripheral); Decreased mobility Start: 01-09-2024 End: 01-09-2024 ambulatory Demetrius Fenton [facility] Facility:[facility] Start: 01-03-2024 End: 01-03-2024 Office outpatient visit 15 minutes Julissa Taylor DO Work Phone: [facility] Comment on above: 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) (Primary Dx); Venous insufficiency (chronic) (peripheral); Decreased mobility Start: 01-03-2024 End: 01-03-2024 [facility] Start: 12-27-2023 End: 12-27-2023 Subsequent hospital visit by physician Julissa Taylor DO Work Phone: [facility]ound [facility] Dominique Gar Comment on above: [facility] Start: 12-27-2023 End: 12-27-2023 ambulatory DEMETRIUS [facility] Start: 12-20-2023 End: 12-20-2023 Office outpatient visit 15 minutes Julissa Taylor DO Work Phone: [facility] Comment on above: 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) (Primary Dx); Venous insufficiency (chronic) (peripheral); Lymphedema; Decreased mobility Start: 12-20-2023 End: 12-20-2023 ambulatory [facility] Start: 12-13-2023 End: 12-13-2023 Office outpatient visit 15 minutes Julissa Taylor DO Work Phone: [facility] Comment on above: 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) (Primary Dx); Venous insufficiency (chronic) (peripheral); Lymphedema; Decreased mobility Start: 12-13-2023 End: 12-13-2023 ambulatory [facility] Start: 12-06-2023 End: 12-06-2023 ambulatory [facility] Start: 12-06-2023 End: 12-06-2023 Office outpatient visit 15 minutes Julissa Taylor DO Work Phone: [facility] Comment on above: 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) (Primary Dx); Venous insufficiency (chronic) (peripheral); Lymphedema; Decreased mobility Start: 11-29-2023 End: 11-29-2023 ambulatory [facility] Start: 11-29-2023 End: 11-29-2023 Office outpatient visit 15 minutes [facility] DO [facility] Comment on above: 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) (Primary Dx); Venous insufficiency (chronic) (peripheral); Lymphedema; Decreased mobility; Cellulitis of left foot Start: 10-11-2023 End: 10-11-2023 ambulatory [facility] Start: 10-11-2023 End: 10-11-2023 Subsequent hospital visit by physician Julissa Taylor DO Work Phone: [facility] HBO Comment on above: 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) (Primary Dx); Venous insufficiency (chronic) (peripheral); Lymphedema; Decreased mobility Start: 10-04-2023 End: 10-04-2023 Subsequent hospital visit by physician Julissa Taylor DO Work Phone: [facility] HBO Comment on above: 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) (Primary Dx); Venous insufficiency (chronic) (peripheral); Lymphedema; Decreased mobility Start: 10-04-2023 End: 10-04-2023 ambulatory [facility] Start: 09-27-2023 End: 09-27-2023 Office outpatient visit 15 minutes Julissa Mack Phone: [facility] HBO Comment on above: 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) (Primary Dx); Venous insufficiency (chronic) (peripheral); Lymphedema Start: 09-27-2023 End: 09-27-2023 Subsequent hospital visit by physician Julissa Mack Phone: [facility] HBO Comment on above: Arrived Start: 09-27-2023 End: 09-27-2023 ambulatory [facility] Start: 09-20-2023 End: 09-20-2023 Office outpatient visit 15 minutes Julissa Taylor DO Work Phone: [facility] HBO Comment on above: 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) (Primary Dx); Venous insufficiency (chronic) (peripheral); Lymphedema Start: 09-20-2023 End: 09-20-2023 ambulatory [facility] Start: 09-13-2023 End: 09-13-2023 ambulatory [facility] Start: 09-13-2023 End: 09-13-2023 Subsequent hospital visit by physician Julissa Mack Phone: [facility] Comment on above: 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); Venous insufficiency (chronic) (peripheral); Lymphedema Start: 09-06-2023 End: 09-06-2023 ambulatory [facility] Start: 09-06-2023 End: 09-06-2023 Subsequent [facility] visit [facility] Comment on above: 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); Lymphedema; Venous insufficiency (chronic) (peripheral); Non-pressure chronic ulcer right lower leg, limited to breakdown skin (HCC) Start: 08-30-2023 End: 08-30-2023 Subsequent hospital visit by physician Julissa Mack Phone: [facility] Comment on above: Venous insufficiency (chronic) (peripheral) (Primary Dx); Lymphedema; Non-pressure chronic ulcer right lower leg, limited to breakdown skin (HCC); 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); Decreased mobility Start: 08-30-2023 End: 08-30-2023 ambulatory [facility] Start: 08-23-2023 End: 08-23-2023 Subsequent hospital visit by physician Julissa Mack Phone: [facility] Comment on above: Lymphedema (Primary Dx); Venous insufficiency (chronic) (peripheral); Non-pressure chronic ulcer right lower leg, limited to breakdown skin (HCC); 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); Decreased mobility Start: 08-23-2023 End: 08-23-2023 ambulatory [facility] Start: 07-16-2023 Registered Referred [facility] [employer] Start: 06-28-2023 End: 06-28-2023 ambulatory [facility] Work Phone: Start: 06-28-2023 End: 06-28-2023 Departed Referred [facility] Start: 06-27-2023 End: 06-27-2023 ambulatory [facility] Work Phone: Start: 06-27-2023 End: 06-27-2023 Departed Referred [facility] [employer] [facility] Start: 06-27-2023 Registered Referred [facility] Start: 06-22-2023 End: 06-23-2023 Emergency department patient visit Fred Holloway MD Work Phone: [facility] ED Comment on above: Cellulitis of [...] 06-12-2023 End: 06-12-2023 Departed Referred [facility] [employer] Start: 03-14-2023 End: 03-14-2023 ambulatory [facility] Work Phone: Start: 03-14-2023 End: 03-14-2023 Departed Referred [facility] [employer] Start: 03-14-2023 Registered Referred [facility] [employer] Start: 03-13-2023 End: 03-13-2023 ambulatory [facility] Work Phone: Start: 03-13-2023 End: 03-13-2023 [facility] Start: 02-09-2023 End: 02-09-2023 ambulatory [facility] Work Phone: Start: 02-09-2023 End: 02-09-2023 [facility] Start: 01-09-2023 End: 01-09-2023 ambulatory [facility] Work Phone: Start: 01-09-2023 End: 01-09-2023 [facility] Start: 01-02-2023 End: 01-02-2023 [facility] Start: 12-14-2022 End: 12-14-2022 ambulatory [facility] Work Phone: Start: 12-14-2022 End: 12-14-2022 [facility] Start: 12-14-2022 [facility] Start: 11-28-2022 End: 11-28-2022 ambulatory [facility] Work Phone: Start: 11-28-2022 End: 11-28-2022 [facility] Start: 11-28-2022 [facility] Start: 11-21-2022 End: 11-21-2022 ambulatory [facility] Work Phone: Start: 11-21-2022 End: 11-21-2022 [facility] Start: 11-21-2022 [facility] Start: 11-17-2022 End: 11-17-2022 Emergency department patient visit Jesús Ellis MD Work Phone: [facility] EMERGENCY DEPT Comment on above: Passive suicidal dana ations (Primary Dx) Start: 11-16-2022 End: 11-16-2022 Postop follow up visit related to original px Josettenithya Diaz PA-C Work Phone: [facility] Comment on above: Encounter for postop erative care (Primary Dx) Start: 10-26-2022 End: 10-26-2022 Subsequent hospital visit by physician Candie Vieyra PA-C Work Phone: [facility] CT Comment on above: Calculus of gallblad javier without cholecystitis without obstruction; Peripancreatic abscess Start: 10-24-2022 End: 10-24-2022 ambulatory [facility] Work Phone: Start: 10-24-2022 End: 10-24-2022 Departed Referred [facility] [employer] Start: 10-24-2022 Registered Referred [facility] [employer] Start: 10-14-2022 Orders Only Candie Vieyra PA-C Work Phone: [facility] Comment on above: Preop testing (Prima ry Dx) Start: 10-14-2022 Patient encounter status Tamir Vieyra PA-C Work Phone: [facility] Work Phone: Start: 10-03-2022 Telephone encounter Brady esquivel MD Work Phone: [facility] Start: 09-12-2022 End: 09-12-2022 ambulatory [facility] Work Phone: Start: 09-12-2022 End: 09-12-2022 Departed Referred [facility] [employer] Start: 09-12-2022 Registered Referred [facility] [employer] Start: 09-07-2022 End: 09-07-2022 ambulatory [facility] Work Phone: Start: 09-07-2022 End: 09-07-2022 Departed Referred [facility] Start: 08-22-2022 End: 08-22-2022 ambulatory [facility] Work Phone: Start: 08-22-2022 End: 08-22-2022 Departed Referred [facility] Start: 08-01-2022 Telephone encounter Candie de la torre PA-C Work Phone: [facility] Start: 08-01-2022 End: 08-01-2022 ambulatory [facility] Work Phone: Start: 08-01-2022 End: 08-01-2022 Departed Referred [facility] Start: 07-29-2022 End: 07-29-2022 Office outpatient new 45 minutes Brady Powell MD Work Phone: [facility] Comment on above: Calculus of gallblad javier without cholecystitis without obstruction (Primary Dx); Peripancreatic abscess; History of traumatic brain injury; Epigastric pain Start: 07-28-2022 End: 07-28-2022 Departed Referred [facility] Start: 07-18-2022 End: 07-18-2022 Departed Referred [facility] Start: 07-15-2022 Telephone encounter Brady esquivel MD Work Phone: [facility] Comment on above: OTHER Start: 06-30-2022 End: 06-30-2022 Departed Referred [facility] Start: 06-09-2022 Transcribe Orders Demetrius zacarias Work Phone: [facility] Central Scheduling Comment on above: Peripheral vascular disease, unspecified (HCC) (Primary Dx); Venous insufficiency (chronic) (peripheral); 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) Start: 06-07-2022 End: 06-23-2022 Evaluation and management of inpatient Tresa Smallwood DO Work Phone: [facility] HICU Start: 05-20-2022 End: 05-20-2022 ambulatory [facility] Work Phone: Start: 05-20-2022 End: 05-20-2022 [facility] Start: 05-20-2022 [facility] Start: 05-13-2022 End: 05-13-2022 [facility] Start: 04-29-2022 End: 04-29-2022 ambulatory [facility] Work Phone: Start: 04-29-2022 End: 04-29-2022 [facility] Start: 04-29-2022 [facility] Start: 04-22-2022 End: 04-22-2022 ambulatory [facility] Work Phone: Start: 04-22-2022 End: 04-22-2022 [facility] Start: 02-17-2022 End: 02-17-2022 ambulatory [facility] Work Phone: Start: 02-17-2022 End: 02-17-2022 [facility] Start: 02-17-2022 [facility] Start: 02-10-2022 End: 02-10-2022 ambulatory [facility] Work Phone: Start: 02-10-2022 End: 02-10-2022 [facility] Start: 01-17-2022 End: 01-17-2022 [facility]ed [facility] Start: 11-17-2021 End: 08-10-2022 ambulatory [facility] Work Phone: Start: 11-17-2021 End: 11-17-2021 Departed Referred [facility] Start: 10-20-2021 End: 10-20-2021 Subsequent hospital visit by physician Lorie Fox CNP Work Phone: [facility] Start: 10-13-2021 End: 10-13-2021 Subsequent hospital visit by physician Lorie Ospina APRN - [place]ON[place] Work Phone: [facility] Start: 10-06-2021 End: 10-06-2021 Subsequent hospital visit by physician Lorie Ospina APRN - [place] Work Phone: [facility] Start: 09-29-2021 End: 09-29-2021 Subsequent hospital visit by physician Lorie Ospina APRN - [place] Work Phone: [facility] Start: 09-27-[address] [facility] Start: 09-17-[address] [facility] Start: 09-01-2021 End: 09-01-2021 Subsequent hospital visit by physician Lorie Fox CNP Work Phone: [facility] Start: 08-19-2021 End: 08-19-2021 Subsequent hospital visit by physician Lorie Fox CNP Work Phone: [facility] Start: 08-11-2021 End: 08-11-2021 Subsequent hospital visit by physician Lorie Fox CNP Work Phone: [facility] Start: 07-28-2021 End: 07-28-2021 Subsequent hospital visit by physician Lorie Fox CNP Work Phone: [facility] Start: 06-30-2021 End: 06-30-2021 Subsequent hospital visit by physician Lorie Fox CNP Work Phone: [facility] Start: 06-15-2021 End: 06-15-2021 Subsequent hospital visit by physician Lorie Ospina ONCOLOGY ACCOUNT SPECIALIST - HOTEL DESK CLERK Work Phone: [facility] Start: 06-08-2021 End: 06-08-2021 Subsequent hospital visit by physician Lorie Ospina ONCOLOGY ACCOUNT SPECIALIST - HOTEL DESK CLERK Work Phone: [facility] Start: 06-08-2021 End: 06-08-2021 Departed Referred [facility] Start: 05-25-2021 End: 05-25-2021 Subsequent hospital visit by physician Lorie Ospina ONCOLOGY ACCOUNT SPECIALIST - HOTEL DESK CLERK Work Phone: [facility] Start: 04-06-[address] [facility] Start: 06-26-2020 End: 06-26-2020 Emergency department patient visit Loki Hernandez Work Phone: [facility] ED Comment on above: Injury of head, init ial encounter (Primary Dx); Laceration of scalp, initial encounter Start: 02-19-2020 End: 02-19-2020 Emergency department patient visit Melly Marinelli Work Phone: [facility] ED Comment on above: Hypertensive urgency (Primary Dx); Acute nonintractable headache, unspecified headache type Start: 01-23-2020 End: 01-23-2020 Telephone encounter Margaret Christopher Work Phone: [place] [facility] Adult Comment on above: Appointment (needs o utpatient cystoscopy in the OR) Start: 04-05-2019 End: 04-05-2019 Emergency department patient visit Jesús Ellis MD Work Phone: [facility] Emergency Dept Comment on above: Cellulitis of right lower extremity (Primary Dx); Elevated lactic acid level Procedures Date Procedure Procedure Detail Performing Clinician Start: 02-28-2024 Debridement subcutan eous tissue 20 sq cm/< Julissa Taylor DO Work Phone: Start: 02-18-2024 Comprehensive metabo [...] 12 lds trcg only w/o i&r Felicia BUNDYC Work Phone: Start: 06-22-2023 Bacteria identified in [...] stick/tabl et reagent auto microscopy Brenda Blanco ONCOLOGY ACCOUNT SPECIALIST - HOTEL DESK CLERK Work Phone: Start: 06-15-2022 Radiologic exam ches t single view Asia Nelson MD Work Phone: Start: 06-15-2022 Chloride urine Brenda Blanco APRN - HOTEL DESK CLERK Work Phone: Start: 06-15-2022 End: 06-15-2022 Smr [...] Phone: Start: 06-09-2022 PULSE OXIMETRY, CONTINUOUS Tresa MeetingSprout DO Work Phone: Start: 06-09-2022 TTE w or w/o contr, cont ECG Matteo Rios MD Work Phone: Start: 06-09-2022 PULSE OXIMETRY, CONTINUOUS Tresa MeetingSprout DO Work Phone: Start: 06-09-2022 Ecg routine ecg w/le ast 12 lds trcg only w/o i&r Brenda De Souzai Danya Work Phone: Start: 06-09-2022 Basic metabolic pane l calcium total Brenda Hagan Work Phone: Start: 06-08-2022 PULSE OXIMETRY, CONTINUOUS Atari DO Work Phone: Start: 06-08-2022 Non-invas physiologi c std extremity art 2 level Bertha Rodrigez ONCOLOGY ACCOUNT SPECIALIST - HOTEL DESK CLERK Work Phone: Start: 06-08-2022 TTE w or wo fol wcon,Doppler Brenda De Souzai Danya Work Phone: Start: 06-08-2022 Assay of troponin quantitative Brenda Keely Danya Work Phone: Start: 06-08-2022 Assay of troponin quantitative Brenda De Souzai Danya Work Phone: Start: 06-08-2022 Chloride urine Brenda Keely Danya Work Phone: Start: 06-08-2022 Urnls dip stick/tabl [...] Work Phone: Start: 06-07-2022 Lipid panel Brenda Sarah glasgow Danya Work Phone: Start: 06-07-2022 Ecg routine ecg w/le ast 12 lds i&r only Tresa Cl DO Work Phone: Start: 06-07-2022 PULSE OXIMETRY, [...] DTaP/Tdap/Td vaccine (2 - Td or Tdap) [facility] Start: 06-26-2030 DTaP/Tdap/Td Vaccine s (2 - Td or Tdap) DTaP/Tdap/Td Vaccines (2 - Td or Tdap) [facility] Start: 06-26-2030 DTaP/Tdap/Td Vaccine s (3 - Td or Tdap) DTaP/Tdap/Td Vaccines (3 - Td or Tdap) [facility] Start: 06-26-2030 Urine microalbumin profile DTaP,Tdap,Td Vaccine (3 - Td or Tdap) [facility] Start: 06-26-2030 [facility] Start: 06-07-2027 Lipid panel [facility] Start: 02-17-2027 Diabetes Screening Diabetes Screenin [facility] Start: 10-28-2025 Diabetes Screening Diabetes Screenin [facility] Start: 07-08-2025 BP Controlled (<130/80) BP Controlle d (<130/80) [facility] Start: 01-13-2025 End: 01-13-2025 Patient encounter procedure 01/13/2025 11:30 AM EDT Office Visit Neurology [address] [place] [address] Chhaya Saldana MD [address] [place] [address] 6 month follow up Neurology Comment on above: 6 month follow up Start: 06-15-2024 BP Controlled (<130/80) BP Controlle d (<130/80) [facility] Start: 04-09-2024 End: 04-09-2024 Patient encounter procedure 04/09/2024 2:15 PM EST Appointment [facility] [place] [address] Danielle Arreola DPM [address] [place] [address] [facility] Start: 03-20-2024 End: 03-20-2024 Patient encounter procedure 03/20/2024 10:30 AM EST Appointment [facility] [place] [address] [place] [address] Julissa Taylor, DO [address], [place] [id number] [facility] Start: 03-13-2024 End: 03-13-2024 Patient encounter procedure 03/13/2024 2:30 PM EST [facility]ointment [facility] [place] [address] [place] [address] Julissa Taylor, DO [address], [place] [id number] [facility] Start: 03-06-2024 End: 03-06-2024 Patient encounter procedure 03/06/2024 10:30 AM EST Appointment [facility] [place] [address] Julissa Taylor, DO [address], [place] [id number] [facility] Start: 02-28-2024 End: 02-28-2024 Patient encounter procedure 02/28/2024 10:30 AM EST Appointment [facility] [place] [address] Julissa Taylor, DO [address], [place] [id number] [facility] Start: 02-21-2024 End: 02-21-2024 Patient encounter procedure 02/21/2024 9:45 AM EST Appointment [facility] [address] [place] [address] Julissa Taylor, DO [address], [place] [id number] [facility] Start: 02-14-2024 End: 02-14-2024 Patient encounter procedure 02/14/2024 8:45 AM EST Appointment [facility] [address] [place] [address] Julissa Taylor, DO [address], [place] [id number] [facility] Start: 02-07-2024 End: 02-07-2024 Patient encounter procedure 02/07/2024 8:45 AM EDT Appointment [facility] [address] [place] [address] Julissa Taylor, DO [address], [place] [id number] [facility] Start: 01-31-2024 End: 01-31-2024 Patient encounter procedure 01/31/2024 8:45 AM EDT Appointment [facility] [address] [place] [address] Julissa Taylor, DO [address] [place] [address] [facility] Start: 01-24-2024 End: 01-24-2024 Patient encounter procedure 01/24/2024 10:00 AM EDT Appointment [facility] [address] [place] [address] Julissa Taylor, DO [address], [place] [id number] [facility] Start: 01-17-2024 End: 01-17-2024 Patient encounter procedure 01/17/2024 9:45 AM EDT Appointment [facility] [address] [place] [address] Julissa Taylor, DO [address] [place] [address] [facility] [place] [address] [facility] Start: 01-10-2024 End: 01-10-2024 Patient encounter procedure 01/10/2024 9:15 AM EDT Appointment [facility] [address] [place] [address] Julissa Taylor, DO [address] [facility] [place] [id number] [facility] Start: 01-03-2024 End: 01-03-2024 Patient encounter procedure 01/03/2024 3:15 PM EDT Appointment [facility] [address] [place] [address] Julissa Taylor, DO [address] [place] [facility] [place] [address] [facility] Start: 12-27-2023 End: 12-27-2023 Patient encounter procedure 12/27/2023 2:45 PM EDT Appointment [facility] [address] [place] [address] Julissa Taylor, DO [address] [place] [facility] [place] [address] [facility] Start: 12-20-2023 End: 12-20-2023 Patient encounter procedure 12/20/2023 11:00 AM EDT Appointment [facility] HBO [address] [place] [address] Julissa Taylor, DO [address] [facility] [place] [address] [facility] Start: 12-13-2023 End: 12-13-2023 Patient encounter procedure 12/13/2023 11:00 AM EDT Appointment [facility] HBO [address] [place] [address] Julissa Taylor, DO [address] [place], [place] [phone] [facility] HBO Start: 12-10-2023 COVID-19 Vaccine () COVID-19 Vaccine () [facility] Start: 12-10-2023 COVID-19 Vaccine ( season) COVID-19 Vaccine () [facility] Start: 12-10-2023 Influenza vaccination [facility] Start: 12-06-2023 End: 12-06-2023 Patient encounter procedure 12/06/2023 10:30 AM EDT Appointment [facility] HBO [address] [place] [address] Julissa Taylor, DO [address] [place], [place] [phone] [facility] Start: 11-29-2023 End: 11-29-2023 Patient encounter procedure 11/29/2023 10:15 AM EDT Appointment [facility] HBO [address] [place] [address] Julissa Taylor, DO [address] [place], [place] [phone] [facility] Start: 11-17-2023 End: 11-17-2023 Patient encounter procedure 11/17/2023 10:30 AM EDT Appointment [facility] HBO [address] [place] [address] [facility] HBO Start: 11-15-2023 End: 11-15-2023 Patient encounter procedure 11/15/2023 10:45 AM EDT App[facility]ment [facility] [address] [place] [address] Julissa Taylor, DO [address] [place], [place] [phone] [facility] HBO Start: 11-08-2023 End: 11-08-2023 Patient encounter procedure 11/08/2023 9:30 AM EDT Appointment [facility] [address] [place] [address] Julissa Taylor, DO [address] [facility] [place] [address] [facility] HBO Start: 11-01-2023 End: 11-01-2023 Patient encounter procedure 11/01/2023 8:30 AM EDT Appointment [facility] [address] [place] [address] Julissa Taylor, DO [address] [facility] [place] [phone] [facility] Start: 10-25-2023 End: 10-25-2023 Patient encounter procedure 10/25/2023 8:30 AM EDT Appointment [facility] HBO [address] [place] [address] Julissa Taylor, DO [address] [facility], [place] [id number] [facility] Start: 10-18-2023 End: 10-18-2023 Patient encounter procedure 10/18/2023 10:15 AM EDT Appointment [facility] HBO [address] [place] [address] Julissa Taylor, DO [address] [facility], [place] [address] [facility] Start: 10-11-2023 End: 10-11-2023 Patient encounter procedure 10/11/2023 8:45 AM EDT Appointment [facility] HBO [address] [place] [address] Julissa Taylor, DO [address] [facility] [place] [address] [facility] Start: 10-04-2023 End: 10-04-2023 Patient encounter procedure 10/04/2023 1:45 PM EDT App[facility]ment [facility] [address] [place] [address] Julissa Taylor, DO [address] [place] [address] [facility] Start: 09-27-2023 End: 09-27-2023 Patient encounter procedure 09/27/2023 1:15 PM EDT Appointment [facility] HBO [address] [place] [address] Julissa Taylor, DO [address] [place] [address] [facility] Start: 09-20-2023 End: 09-20-2023 Patient encounter procedure 09/20/2023 2:15 PM EDT Appointment [facility] [address] [place] [address] Julissa Taylor, DO [address] [facility] [place] [address] [facility] Start: 09-13-2023 End: 09-13-2023 Patient encounter procedure 09/13/2023 2:00 PM EDT Appointment [facility] [address] [place] [address] Julissa Taylor, DO [address] [facility], [place] [phone] [facility] Start: 09-06-2023 End: 09-06-2023 Patient encounter procedure 09/06/2023 9:30 AM EDT Appointment [facility] [address] [place] [address] Julissa Taylor, DO [address] [place], [place] [address] [facility] Start: 08-30-2023 End: 08-30-2023 Patient encounter procedure 08/30/2023 9:30 AM EDT Appointment [facility] [address] [place] [address] Julissa Taylor, DO [address] [place], [place] [phone] [facility] Start: 07-16-2023 Urine culture Urine Culture [facility] Start: 07-16-2023 [facility] Start: 06-23-2023 Diabetes mellitus screening [facility] Start: 06-19-2023 LIPID SCREEN LIPID SCREEN [facility] Start: 04-10-2023 Medicare Advantage Annual Wellness Visit Medicare [facility] Annual Wellness Visit [facility] Start: 01-22-2023 DIABETES SCREEN DIABETES SCREEN [facility] Start: 12-12-2022 Depression Monitoring Depression Mon itoring [facility] Start: 12-12-2022 Depresssion Monitoring Depresssion M onitoring [facility] Start: 12-09-2022 COVID-19 Vaccine ( season) COVID-19 Vaccine ( season) [facility] Start: 12-09-2022 Influenza vaccination S [facility] Start: 2022 RSV Immunization age d 60 or older (1 - 1-dose 60+ series) RSV Immunization aged 60 or older (1 - 1-dose 60+ series) [facility] Start: 2022 RSV Immunization for Adults (1 - Risk 60-74 years 1-dose series) RSV Immunization for Adults (1 - Risk 60-74 years 1-dose series) [facility] Start: 2022 RSV Vaccine (1 - 1-d ose 60+ series) RSV Vaccine (1 - 1-dose 60+ series) [facility] Start: 11-16-2022 End: 11-16-2022 Patient encounter procedure [facility] Advanced Laproscopic Surgery Start: 11-02-2022 End: 11-02-2022 Admission to same day surgery center 11/02/2022 Surgery Procedural Brady Powell MD [address] [place] [address] [address] [place] [address] LAPAROSCOPIC CHOLECYSTECTOMY, POSSIBLE OPEN [24454 (CPT )] [facility] Comment on above: LAPAROSCOPIC CHOLECY STECTOMY, POSSIBLE OPEN [36206 (CPT )] Start: 11-02-2022 End: 11-02-2022 Laparoscopy surg cholecystectomy [facility] Operating Room Start: 11-02-2022 Subsequent hospital visit by physician 11/02/2022 Hospital Encounter Procedural Brady Powell MD [address] [place], [place] [phone] [facility] Start: 11-01-2022 End: 11-01-2022 Admission to same day surgery center 11/01/2022 Surgery Procedural Brady Powell MD [address] [place] [phone] LAPAROSCOPIC CHOLECYSTECTOMY, POSSIBLE OPEN [44906 (CPT )] [facility] MAIN OR Comment on above: LAPAROSCOPIC CHOLECY STECTOMY, POSSIBLE OPEN [22137 (CPT )] Start: 11-01-2022 End: 11-01-2022 Laparoscopy surg cholecystectomy LAPAROSCOPIC CHOLECYSTECTOMY Calculus of gallbladder without cholecystitis without obstruction Acute pancreatitis without necrosis or infection, unspecified Epigastric pain 11/01/2022 7:30 AM EDT [facility] Operating Room Start: 11-01-2022 Subsequent hospital visit by physician 11/01/2022 Hospital Encounter Procedural Brady Powell MD [address] [facility] [address] [place] [phone] [facility] MAIN OR Start: 10-28-2022 End: 10-28-2022 Admission to same day surgery center 10/28/2022 8:30 AM EDT - 10/28/2022 10:00 AM EDT Surgery [facility] [address] [place] [address] Brady Powell MD [address] [facility] [address] [place] [phone] LAPAROSCOPIC CHOLECYSTECTOMY, POSSIBLE OPEN [00466 (CPT )] [facility] MAIN OR Comment on above: LAPAROSCOPIC CHOLECY STECTOMY, POSSIBLE OPEN [06575 (CPT )] Start: 10-28-2022 End: 10-28-2022 Anesthesia consultation 10/28/2022 8:30 AM EDT Anesthesia Event [facility] [address] [place] [address] Jennie Chamorro, HELP DESK ASSISTANT [address] [place] [address] [facility] Start: 10-28-2022 End: 10-28-2022 Laparoscopy surg cholecystectomy LAPAROSCOPIC CHOLECYSTECTOMY Calculus of gallbladder without cholecystitis without obstruction Acute pancreatitis without necrosis or infection, unspecified Epigastric pain 10/28/2022 8:30 AM EDT [facility] Start: 10-28-2022 Subsequent hospital visit by physician 10/28/2022 6:30 AM EDT Hospital Encounter [facility] [address] [facility] [place] [id number] Brady Powell MD [address] [place] [address] [address] [place] [address] [facility] Start: 10-26-2022 End: 10-26-2022 Patient encounter procedure [facility] CT Start: 10-26-2022 End: 10-26-2022 Admission to establishment [facility] Pre-Admit Testing Start: 10-14-2022 End: 10-15-2023 Hepatic function 2000 panel - Serum or Plasma Hepatic function panel Lab Routine Preop testing Expected: 10/14/2022 (Approximate), Expires: 10/15/2023 [facility] Work Phone: Comment on above: Expected: 10/14/2022 (Approximate), Expires: 10/15/2023 Start: 07-29-2022 End: 07-30-2023 Amylase [Enzymatic activity/volume] in Serum or Plasma Amylase Lab Routine Calculus of gallbladder without cholecystitis without obstruction Peripancreatic abscess Expected: 07/29/2022 (Approximate), Expires: 07/30/2023 [facility] Work Phone: Comment on above: Expected: 07/29/2022 (Approximate), Expires: 07/30/2023 Start: 07-29-2022 End: 07-30-2023 Creatinine [Mass/volume] in Serum or Plasma Creatinine, Serum Lab Routine Calculus of gallbladder without cholecystitis without obstruction Peripancreatic abscess Expected: 07/29/2022 (Approximate), Expires: 07/30/2023 [facility] Comment on above: Expected: 07/29/2022 (Approximate), Expires: 07/30/2023 Start: 07-29-2022 End: 07-30-2023 CT Abdomen and Pelvis W contrast IV CT abdomen pelvis w contrast Imaging Routine Calculus of gallbladder without cholecystitis without obstruction Peripancreatic abscess Expected: 07/29/2022, Expires: 07/30/2023 [email or web address] Comment on above: Expected: 07/29/2022 , Expires: 07/30/2023 Start: 07-29-2022 End: 07-30-2023 Hepatic function 2000 panel - Serum or Plasma Hepatic function panel Lab Routine Calculus of gallbladder without cholecystitis without obstruction Peripancreatic abscess Expected: 07/29/2022 (Approximate), Expires: 07/30/2023 [email or web address] Comment on above: Expected: 07/29/2022 (Approximate), Expires: 07/30/2023 Start: 07-29-2022 End: 07-30-2023 Lipase [Enzymatic activity/volume] in Serum or Plasma Lipase Lab Routine Calculus of gallbladder without cholecystitis without obstruction Peripancreatic abscess Expected: 07/29/2022 (Approximate), Expires: 07/30/2023 [email or web address] Comment on above: Expected: 07/29/2022 (Approximate), Expires: 07/30/2023 Start: 07-29-2022 End: 07-29-2022 Patient encounter procedure 07/29/2022 Office Visit General Surgery Brady Powell MD [address] [place] [address] [address] [place] [address] [facility] Advanced Laproscopic Surgery Start: 12-09-2021 Influenza vaccination S [facility] Start: 12-09-2021 [facility] Start: 05-24-2021 Annual Wellness Visi t (AWV) Annual Wellness Visit (AWV) [facility] Start: 02-18-2021 Creatinine measurement [facility] Start: 02-18-2021 Potassium [Moles/vol ume] in Serum or Plasma Potassium [facility] Start: 02-18-2021 Potassium monitoring Potassium monit oring [facility] Start: 02-18-2021 ZZPotassium ZZPotassium [facility] Start: 12-09-2020 Influenza vaccination Flu vaccine (# 1) [facility] Start: 04-05-2020 Creatinine measurement Creatinine mo nitoring [facility] Start: 04-05-2020 Potassium monitoring Potassium monit oring [facility] Start: 12-10-2019 Influenza vaccination [place] Start: 12-09-2018 Influenza vaccination Flu vaccine (# 1) [facility] Work Phone: Start: 2017 PROSTATE CANCER SCREENING DISCUSSION PROSTATE CANCER SCREENING DISCUSSION [facility] Start: 2017 Prostate specific antigen measurement Prostate Cancer Screening Discussion [facility] Start: 07-11-2015 Pneumococcal Vaccine : 50+ Years (2 of 2 - PCV) Pneumococcal Vaccine: 50+ Years (2 of 2 - PCV) [facility] Start: 07-11-2015 Pneumococcal Vaccine : Pediatrics (0 to 5 Years) and At-Risk Patients (6 to 64 Years) (2 - PCV) Pneumococcal Vaccine: Pediatrics (0 to 5 Years) and At-Risk Patients (6 to 64 Years) (2 - PCV) [facility] Start: 07-11-2015 Pneumococcal Vaccine : Pediatrics (0 to 5 Years) and At-Risk Patients (6 to 64 Years) (2 of 2 - PCV) Pneumococcal Vaccine: Pediatrics (0 to 5 Years) and At-Risk Patients (6 to 64 Years) (2 of 2 - PCV) [facility] Start: 07-11-2015 [facility] Start: 2012 Screening for malign ant neoplasm of colon [facility] Start: 2012 Shingles Vaccine (1 of 2) Shingles Vaccine (1 of 2) [facility] Start: 2012 SHINGRIX VACCINE (1 of 2) SHINGRIX VACCINE (1 of 2) [facility] Start: 2012 Zoster Vaccines (1 of 2) Zoster Vacc yana (1 of 2) [facility] Start: 2012 [facility] Start: 12-05-2007 Screening for malign ant neoplasm of colon [facility] Start: 2002 Prostate specific antigen measurement Prostate Specific Antigen (PSA) Screening or Monitoring [facility] Start: 1981 Urine microalbumin profile DTAP,TDAP,TD (1 - Tdap) [facility] Start: 1980 ANNUAL PCP TEAM OFFICE SERVICES CLERK ALIZA DISEASE VISIT ANNUAL PCP TEAM CHRONIC DISEASE VISIT [facility] Start: 1980 Anxiety Screening Anxiety Screening [facility] Start: 1980 BP CONTROLLED (<130/80) BP CONTROLLE D (<130/80) [facility] Start: 1980 HEPATITIS C SCREENING HEPATITIS C SC REENING [facility] Start: 1980 Hepatitis C screening S [facility] Start: 1980 HIV SCREENING HIV SCREENING [facility] Start: 1980 HIV screening HIV Screening [facility] Start: 1978 COVID-19 Vaccine (1) COVID-19 Vaccin e (1) [facility] Work Phone: Start: 1977 HIV screening HIV screen [facility] Start: 1974 Depression Screen Depression Screen [facility] Start: 1974 Depresssion Monitoring Depresssion M onitoring [facility] Start: 1972 Lipid panel [facility] Start: 12-05-1967 COVID-19 Vaccine (1) COVID-19 Vaccin e (1) [facility] Start: 12-05-1963 MMR Vaccines (1 of 1 - Standard series) MMR Vaccines (1 of 1 - Standard series) [facility] Start: 12-05-1963 [facility] Start: 06-06-1963 COVID-19 Vaccine (#1) COVID-19 Vacci ne (#1) [facility] Start: 06-06-1963 [facility] Start: 1962 Annual Wellness Visi t (AWV) Annual Wellness Visit (AWV) [facility] Start: 1962 Hepatitis B Vaccines (1 of 3 - 3-dose series) Hepatitis B Vaccines (1 of 3 - 3-dose series) [facility] Start: 1962 Hepatitis C screening Hepatitis C sc reen [facility] Start: 1962 HIV screening [facility] Start: 1962 Screening for malign ant neoplasm of colon [facility] Start: 1962 [facility] End: 06-22-2023 Aerobic and Anaerobic Culture with Stain [facility] Work Phone: Comment on above: Once (Lab) for 1 Occ urrences starting 06/22/2023 until 06/22/2023 Bacteria identified in Blood by Culture [facility] Bacteria identified in Unspecified specimen by Aerobe culture Culture, Aerobic Bacteria with Gram Stain Microbiology STAT 06/22/2023 11:11 PM EDT [email or web address] End: 06-22-2023 Bacteria identified in Unspecified specimen by Anaerobe culture [facility] Comment on above: Once for 1 Occurrenc es starting 06/22/2023 until 06/22/2023 End: 10-26-2022 CT Abdomen and Pelvis W contrast IV [facility] Work Phone: Comment on above: Once for 1 Occurrenc es starting 10/26/2022 until 10/26/2022 Dressing Order: Calc ium alginate (R leg); Weekly; Adaptic (multiple sizes); (Profore light) [employer] Work Phone: Comment on above: Ordered: 11/22/2023 Dressing Order: Calc ium alginate; 4x4 gauze, ABDs; Kerlex, Paper tape; Double Layer tubigrip Dressing Order: Calcium alginate; 4x4 gauze, ABDs; Kerlex, Paper tape; Double Layer tubigrip Wound Ostomy Routine Ordered: 11/08/2023 [employer] Work Phone: Comment on above: Ordered: 11/08/2023 Dressing Order: Calc ium alginate; Daily; 4x4 gauze ([place] Blue); Kerlex, Paper tape [facility] [employer] Work Phone: Comment on above: Ordered: 01/17/2024 Dressing Order: Calc ium alginate; Daily; 4x4 gauze, ABDs; Kerlex, Paper tape [facility] [employer] Work Phone: Comment on above: Ordered: 12/06/2023 Dressing Order: Calc ium alginate; Daily; 4x4 gauze, ABDs; Kerlex, Paper tape [facility] [employer] Work Phone: Comment on above: Ordered: 12/20/2023 Dressing Order: Calc ium alginate; Daily; ABDs; Kerlex, Paper tape [facility] [employer] Work Phone: Comment on above: Ordered: 11/29/2023 Dressing Order: Calc ium alginate; Daily; ABDs; Kerlex, Paper tape [facility] [employer] Work Phone: Comment on above: Ordered: 12/13/2023 Dressing Order: Calc ium alginate; Daily; ABDs; Kerlex, Paper tape [employer] Work Phone: Comment on above: Ordered: 01/31/2024 Dressing Order: Calc ium alginate; Daily; ABDs; Kerlex, Paper tape Dressing Order: Calcium alginate; Daily; ABDs; Kerlex, Paper tape Wound Ostomy Routine 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) Peripheral venous insufficiency [I87.2] Ordered: 03/27/2024 [employer] Work Phone: Comment on above: Ordered: 03/27/2024 Dressing Order: Calc ium alginate; Weekly; (profore lite) [employer] Work Phone: Comment on above: Ordered: 11/15/2023 Dressing Order: Calc ium alginate; Weekly; 4x4 gauze; Multilayer compression wrap 3 layers [employer] Work Phone: Comment on above: Ordered: 03/06/2024 Dressing Order: Calc ium alginate; Weekly; Kerlex, Silk tape; Multilayer compression wrap 3 layers, Unna boot Dressing Order: Calcium alginate; Weekly; Kerlex, Silk tape; Multilayer compression wrap 3 layers, Unna boot Wound Ostomy Routine Ordered: 10/11/2023 [employer] Work Phone: Comment on above: Ordered: 10/11/2023 Dressing Order: Calc ium alginate; Weekly; Multilayer compression wrap 3 layers (Profore lite) [employer] Work Phone: Comment on above: Ordered: 01/10/2024 Dressing Order: Calc ium alginate; Weekly; Multilayer compression wrap 3 layers (Profore lite) [employer] Work Phone: Comment on above: Ordered: 01/24/2024 Dressing Order: Calc ium alginate; Weekly; Multilayer compression wrap 3 layers (profore lite) [employer] Work Phone: Comment on above: Ordered: 02/07/2024 Dressing Order: Calc ium alginate; Weekly; Multilayer compression wrap 3 layers (Profore lite) [facility] Work Phone: Comment on above: Ordered: 02/28/2024 Dressing Order: Christa agen Ag, Calcium Alginate AG; Weekly; Hydralock pads (multiple sizes); Kerlex, Silk tape; Multilayer compression wrap 3 layers (cover toes), Unna boot Dressing Order: Collagen Ag, Calcium Alginate AG; Weekly; Hydralock pads (multiple sizes); Kerlex, Silk tape; Multilayer compression wrap 3 layers (cover toes), Unna boot Wound Ostomy Routine Ordered: 08/23/2023 [facility] Work Phone: Comment on above: Ordered: 08/23/2023 Dressing Order: Christa agen Ag, Calcium alginate; 4x4 gauze; Kerlex, Silk tape; Multilayer compression wrap 3 layers, Unna boot Dressing Order: Collagen Ag, Calcium alginate; 4x4 gauze; Kerlex, Silk tape; Multilayer compression wrap 3 layers, Unna boot Wound Ostomy Routine Ordered: 09/28/2023 [facility] Work Phone: Comment on above: Ordered: 09/28/2023 Dressing Order: Christa agen Ag, Calcium alginate; Hydralock pads (multiple sizes); Kerlex; Unna boot, Multilayer compression wrap 3 layers Dressing Order: Collagen Ag, Calcium alginate; Hydralock pads (multiple sizes); Kerlex; Unna boot, Multilayer compression wrap 3 layers Wound Ostomy Routine Ordered: 09/06/2023 [facility] Work Phone: Comment on above: Ordered: 09/06/2023 Dressing Order: Christa agen Ag, Calcium alginate; Weekly; 4x4 gauze, Hydralock pads (multiple sizes); Kerlex, Silk tape; Unna boot, Multilayer compression wrap 3 layers Dressing Order: Collagen Ag, Calcium alginate; Weekly; 4x4 gauze, Hydralock pads (multiple sizes); Kerlex, Silk tape; Unna boot, Multilayer compression wrap 3 layers Wound Ostomy Routine Ordered: 09/13/2023 [facility] [facility] Work Phone: Comment on above: Ordered: 09/13/2023 Dressing Order: Christa agen Ag, Calcium alginate; Weekly; 4x4 gauze; Kerlex, Silk tape; Multilayer compression wrap 3 layers, Unna boot Dressing Order: Collagen Ag, Calcium alginate; Weekly; 4x4 gauze; Kerlex, Silk tape; Multilayer compression wrap 3 layers, Unna boot Wound Ostomy Routine Ordered: 08/30/2023 [facility] [employer] Work Phone: Comment on above: Ordered: 08/30/2023 Dressing Order: Christa agen Ag, Calcium alginate; Weekly; 4x4 gauze; Kerlex; Unna boot, Multilayer compression wrap 3 layers Dressing Order: Collagen Ag, Calcium alginate; Weekly; 4x4 gauze; Kerlex; Unna boot, Multilayer compression wrap 3 layers Wound Ostomy Routine Ordered: 10/04/2023 [facility] [employer] Work Phone: Comment on above: Ordered: 10/04/2023 Dressing Order: Christa agen Ag; Weekly; (calcium alginate); Kerlex, Silk tape; Multilayer compression wrap 3 layers (cover toes), Unna boot Dressing Order: Collagen Ag; Weekly; (calcium alginate); Kerlex, Silk tape; Multilayer compression wrap 3 layers (cover toes), Unna boot Wound Ostomy Routine Ordered: 09/20/2023 [facility] [employer] Work Phone: Comment on above: Ordered: 09/20/2023 Dressing Order: Collagen, Calcium alginate; Daily; ABDs; Kerlex, Paper tape [facility] Work Phone: Comment on above: Ordered: 02/14/2024 Dressing Order: Hydrafera blue/Dermablue; Daily; Sorbex; Kerlex, Paper tape; Single layer tubigrip [facility] Work Phone: Comment on above: Ordered: 11/01/2023 Dressing Order: Hydrafera blue/Dermablue; Weekly; Sorbex, 4x4 gauze; Kerlex, Paper tape; Unna boot, Multilayer compression wrap 3 layers Dressing Order: Hydrafera blue/Dermablue; Weekly; Sorbex, 4x4 gauze; Kerlex, Paper tape; Unna boot, Multilayer compression wrap 3 layers Wound Ostomy Routine Or[facility]: [facility]/25/2023 [facility] [employer] Work Phone: Comment on above: Ordered: 10/25/2023 Dressing Order: Soap & water; Calcium alginate; Every other day; Sorbex; Kerlex, Paper tape; Surepress Dressing Order: Soap & water; Calcium alginate; Every other day; Sorbex; Kerlex, Paper tape; Surepress Wound Ostomy Routine Ordered: 10/18/2023 [employer] Work Phone: Comment on above: Ordered: 10/18/2023 Dressing Order: Week ly; (Profore lite) [employer] Work Phone: Comment on above: Ordered: 01/03/2024 OUTSIDE PROCEDURE SCAN OUTSIDE P ROCEDURE SCAN Procedures Ordered: 10/24/2022 [facility] Graph Story [facility] Comment on above: Ordered: 10/24/2022 [facility] c Immunizations Immunization Date Immunization Notes Care Provider [facility] 01-17-2024 COVID-19 vaccine, ag e 12+ yr (PFIZER-BIONTECH COMIRNATY) Chhaya Saldana MD Work Phone: [facility] 01-09-2024 influenza, seasonal, injectable, preservative free Chhaya Saladna MD Work Phone: [facility] 06-09-2023 respiratory syncytia l virus (RSV) vaccine, bivalent (ABRYSVO) Chhaya Saldana MD Work Phone: [facility] 03-13-2023 COVID-19 vaccine, ag e 12+ yr (PFIZER-BIONTECH COMIRNATY) Chhaya Saldana MD Work Phone: [facility] 01-09-2023 influenza, injectabl e, quadrivalent, preservative free Chhaya Saldana MD Work Phone: [facility] 08-05-2022 pneumococcal conjuga te (PCV20) vaccine, 20 valent (PREVNAR 20) Chhaya Saldana MD Work Phone: [facility] 01-14-2022 COVID-19 vaccine, ag e 12+ yr, bivalent (PFIZER-BIONTECH) Chhaya Saldana MD Work Phone: [facility] 01-14-2022 influenza, injectabl e, quadrivalent, preservative free Chhaya Saldana MD Work Phone: [facility] 01-28-2021 COVID-19 original vaccine, age 12+ yr, monovalent (PFIZER-BIONTECH - PURPLE TOP) Chhaya Saldana MD Work Phone: [facility] 01-12-2021 influenza, injectabl e, quadrivalent, preservative free Chhaya Saldana MD Work Phone: [facility] 06-26-2020 diphtheria, tetanus toxoids and acellular pertussis vaccine, unspecified formulation Loki Hernandez SOPHIA Work Phone: 06-26-2020 tetanus toxoid, redu joelle diphtheria toxoid, and acellular pertussis vaccine, adsorbed Loki CORTES 05-06-2020 COVID-19 original vaccine, age 12+ yr, monovalent (PFIZER-BIONTECH - PURPLE TOP) Chhaya Saldana MD Work Phone: [facility] 04-15-2020 COVID-19 original vaccine, age 12+ yr, monovalent (PFIZER-BIONTECH - PURPLE TOP) Chhaya Saldana MD Work Phone: [facility] 03-11-2015 influenza, injectabl e, quadrivalent, preservative free Chhaya Saldana MD Work Phone: [facility] 07-10-2014 pneumococcal polysaccharide vaccine, 23 valent Margaret Coyner [facility] 02-04-2014 influenza, seasonal, injectable, preservative free Chhaya Saldana MD Work Phone: [facility] Payers Date Payer Category Payer Self-pay [id number] 2021 Medicaid HMO [facility] MEDICAID ONLY [id number] 2021 Medicare [id number] 2021 Medicare (Managed Care) [facility] MEDICARE [id number] 2021 Medicare HMO ROBBIN ROSARIOOH IO MEDICARE [id number] 2021 Unknown ROBBIN MENDOZAMIKHAILR EXCHANGE [id number] 2021-Present [address] [facility] [place] [address] Exchange Plan [id number] 2021 Medicare [id number] 2021 Unknown [id number] 2021 Medicaid [id number] 2014 Private Health Insurance ARIN NEAL [address] [id number] 2014-Present Indemnity [id number] 2014 Medicare [id number] 1985 Medicare MEDICARE MEDICAR E A AND B [id number] 1985-Present [place] Medicare [id number] Unknown [id number] Unknown [id number] Unknown [id number] 462 Unknown [id number] 462 Unknown [id number] 462 Unknown [id number] 462 Unknown [id number] 462 Unknown [id number] Unknown [id number] Social History Date Type Detail Facility Start: 04-05-2019 End: 02-19-2020 Tobacco smoking status NHIS Unknown if ever smoked [facility] Start: 02-19-2020 End: 07-08-2024 Tobacco use and exposure Never used [facility] Start: 02-19-2020 End: 04-09-2024 Alcohol intake Lifetime non-drinker (finding) [facility] Start: 02-19-2020 End: 06-08-2022 [facility] SDOH [facility] Start: 1960 Sex Assigned At Not on file [facility] [employer] Phone: Start: 05-28-2022 End: 11-17-2022 Exposure to SARS-CoV-2 (event) Not sure [facility] Start: 01-21-2020 End: 07-08-2024 Tobacco smoking status NHIS Former smoker [facility] End: 04-10-1982 History of tobacco use Current smoker [facility] Start: 01-21-2020 End: 07-08-2024 Alcohol intake Current non-drinker of alcohol (finding) [facility] Start: 1960 Sex Assigned At Male [facility] Start: 06-08-2022 Tobacco smoking stat us NHIS Never smoked tobacco [facility] Start: 06-08-2022 History SDOH Alcohol Std Drinks 0 [facility] Start: 06-08-2022 History SDOH IPV Fear 2 S [facility] Graph Story End: 04-10-1982 History of tobacco use Cigarette Smoker [facility] Start: 03-17-2020 End: 06-08-2022 History of Social function [facility] Start: 03-17-2020 End: 06-08-2022 Humiliation, Afraid, Rape, and Kick questionnaire [HARK] [facility] Within the last year , have you been afraid of your partner or ex-partner? No [facility] How often to you hav e a drink containing alcohol? Never [facility] How many standard dr inks containing alcohol do you have on a typical day? Patient does not drink [facility] Start: 11-08-2021 End: 07-26-2024 Sex Male (finding) [facility] Functional Status Date Assessment Result Facility 01-27-2020 Are you deaf, or do you have serious difficulty hearing No 01/27/2020 11:07 AM Alicia Joseph RN No [facility] 01-27-2020 Are you blind, or do you have serious difficulty seeing, even when wearing glasses No 01/27/2020 11:07 AM Alicia Joseph RN No [facility] 01-27-2020 Do you have serious difficulty walking or climbing stairs No 01/27/2020 11:07 AM Alicia Joseph RN No [facility] 01-27-2020 Do you have difficul ty dressing or bathing No 01/27/2020 11:07 AM Alicia Joseph RN No [facility] 01-27-2020 Because of a physica l, mental, or emotional condition, do you have difficulty doing errands alone such as visiting a physician's office or shopping No 01/27/2020 11:07 AM Alicia Joseph RN No [facility] Mental Status Date Assessment Result Facility 01-27-2020 Because of a physica l, mental, or emotional condition, do you have serious difficulty concentrating, remembering, or making decisions No 01/27/2020 11:07 AM Alicia Joseph RN No [facility] Clinical Notes 06-07-2022 to 07-08-2024 Patient InstructionsWeChhaya guzmán MD - 07/08/2024 11:33 AM Cristi Arreola DPM - 04/09/2024 2:15 PM Kurt Radford RN - 04/09/2024 2:15 PM ESTPatient InstructionsPatient Instructions Note Date & Type Note Facility 07-08-2024 Instructions Chhaya Saldana MD - 07/08/2024 12:25 PM EDT Stop aimovig. Talk with psychiatry about increasing amitriptyline if possible with other medications. documented in this encounter [facility] 07-08-2024 Note HNO ID: [id number] Author: CHHAYA SALDANA MD Service: ? Author [...] (sleep) - Aimovig 140 mg monthly - Wilmore 5 mg q8hrs PRN pain (takes around [...] 10 mg t (more content not included)... [facility] 07-08-2024 History of Present illness Narrative [...] (sleep) - Aimovig 140 mg monthly - Wilmore 5 mg q8hrs PRN pain (takes around [...] Discussed with Patient: n/a Chhaya Saldana MD [facility] Neurology documented in this encounter [facility] 04-09-2024 History of Present illness Narrative Subjective [...] Test Results/Process Orders 10 [x] Staff telephones [employer], Nursing Homes/Clarify Orders 10 [] Routine Transfer [...] or more Points) documented in this encounter [facility] 04-09-2024 Hospital Discharge instructions Giuliana Radford RN - 04/09/2024 2:15 PM EST Ordered treatment completed and patient is healed. Patient discharged without any issues. All questions answered. Call the clinic if your wound reopens or a new wound appears at [phone] documented in this encounter [facility] 03-27-2024 History of Present illness Narrative Images from the original note were not included. [facility] Wound Care Progress Note CHIEF COMPLAINT: Wound [...] Test Results/Process Orders 10 [] Staff telephones [facility], Nursing Homes/Clarify Orders 10 [x] Routine Transfer [...] or more Points) documented in this encounter [facility] 03-27-2024 History of Present illness Narrative Images from the original note were not included. [facility] Wound Care Progress Note CHIEF COMPLAINT: Wound [...] Test Results/Process Orders 10 [] Staff telephones [facility], Nursing Homes/Clarify Orders 10 [x] Routine Transfer [...] or more Points) documented in this encounter [facility] 03-27-2024 Hospital Discharge instructions Giuliana Radford RN - 03/27/2024 3:00 PM EST Return Appointment in: 1 week - Should you experience any significant changes in your wound(s) or have any questions regarding your home care instructions please contact the wound center at [phone] If after regular business hours, please call [...] help with wound healing Nursing Care Facility: [facility] Bilateral legs resolved-Facility closed week Facility opened [...] daily and PRN. documented in this encounter [facility] 03-27-2024 Hospital Discharge instructions Giuliana Radford RN - 03/27/2024 3:00 PM EST Return Appointment in: 1 week - Should you experience any significant changes in your wound(s) or have any questions regarding your home care instructions please contact the wound center at [phone] If after regular business hours, please call [...] help with wound healing Nursing Care Facility: [facility] Bilateral legs resolved-Facility closed week Facility opened [...] daily and PRN. documented in this encounter [facility] 03-27-2024 Miscellaneous Notes Encounter addended by: Marycarmen Corona RN on: 03/28/2024 9:26 AM Actions taken: LDA properties accepted documented in this encounter [facility] 03-27-2024 Note Encounter addended b y: Marycarmen Corona RN on: 03/28/2024 9:26 AM Actions taken: LDA properties accepted [facility] 03-27-2024 Note [facility] Wound Care Progress Note CHIEF [...] with plan. Please see attached Discharge Instructions [facility] 03-20-2024 Note [facility] Wound Care Progress Note CHIEF COMPLAINT: Wound [...] with plan. Please see attached Discharge Instructions [facility] 03-13-2024 Hospital Discharge instructions Giuliana Radford RN - 03/13/2024 2:30 PM EST Return Appointment in: 1 week - Should you experience any significant changes in your wound(s) or have any questions regarding your home care instructions please contact the wound center at [phone] If after regular business hours, please call [...] help with wound healing Nursing Care Facility: [facility] Wound Treatment to R toes- [...] daily and PRN. documented in this encounter [facility] 03-13-2024 Note [facility] Wound Care Progress Note CHIEF COMPLAINT: Wound [...] Image 03/13/24 141 Site Assessment Dry 03/13/24 1416 Carine-Wound Assessment Dry;Intact 03/13/24 1416 Wound Length (cm) 0.1 cm 03/13/24 141 Wound Width (cm) 0.1 cm 03/13/24 141 Wound Surface Area (cm^2) 0.01 cm^2 03/13/24 141 Wound Depth (cm) 0.1 cm 03/13/24 141 Wound Volume (cm^3) 0.001 cm^3 03/13/24 141 Wound Healing % 99 03/13/24 141 Drainage Description Serosanguineous 03/13/24 1416 Odor None 03/13/24 141 Drainage Amount Scant 03/13/24 1416 Treatments Cleansed 03/13/24 1416 Primary Dressing Calcium alginate 03/13/24 141 Secondary Dressing 4x4 gauze 03/13/24 1416 Secured with Kerlex;Paper tape 03/13/24 1416 Compression Surepress 02/28/24 1000 Periwound Dressing Moisturizing lotion 02/28/24 1000 Dressing Status New dressing;Clean, dry & intact 03/13/24 1416 Wound/Incision 02/21/24 Venous Ulcer Pretibial Left (Active) Wound Image 03/13/24 1358 Site Assessment Bleeding 03/13/24 1358 Carine-Wound Assessment Dry 03/13/24 1358 Wound Length (cm) 1 cm 03/13/24 135 Wound Width (cm) 0.9 cm 03/13/24 135 Wound Surface Area (cm^2) 0.9 cm^2 03/13/24 1358 Wound Depth (cm) 0.1 cm 03/13/24 135 [...] Multilayer compression wrap - 3 layers 03/13/24 135 Periwound Dressing Moisturizing lotion 03/13/24 1358 Dressing [...] with plan. Please see attached Discharge Instructions [facility] 03-06-2024 Hospital Discharge instructions Giuliana Radford RN - 03/06/2024 10:30 AM EST Return Appointment in: 1 week - Should you experience any significant changes in your wound(s) or have any questions regarding your home care instructions please contact the wound center at [phone] If after regular business hours, please call [...] help with wound healing Nursing Care Facility: [facility] Wound Treatment to R toes- [...] daily and PRN. documented in this encounter [facility] 03-06-2024 Note [facility] Wound Care Progress Note CHIEF COMPLAINT: Wound [...] Venous Ulcer Pretibial Left (Active) Wound Image 03/06/244 Site Assessment Black;Brown;Dry 03/06/24 103 Carine-Wound Assessment Dry;Intact;Moist 02/28/24 0956 Wound Length [...] with plan. 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 [facility] Wound Care Progress Note CHIEF COMPLAINT: Wound [...] Right;Dorsal (Active) Wound Image 02/28/24956 Site Assessment Granulation;[place]lton;Sloughing 02/28/24956 Carine-Wound Assessment Dry 02/28/24956 Wound Length [...] provider verified the correct patient, procedure, equipment, passport support associate, and site/side marked as required. Debridement Details [...] attached Discharge Instructions documented in this encounter [facility] 02-28-2024 Hospital Discharge instructions Giuliana Radford RN - 02/28/2024 10:30 AM EST Return Appointment in: 1 week - Should you experience any significant changes in your wound(s) or have any questions regarding your home care instructions please contact the wound center at [phone] If after regular business hours, please call [...] lite applied for prevention. Nursing Care Facility: [facility] Wound Treatment to R toes- [...] daily and PRN. documented in this encounter [facility] 02-28-2024 Note [facility] Wound Care Progress Note CHIEF COMPLAINT: Wound [...] Right;Dorsal (Active) Wound Image 02/28/24956 Site Assessment Granulation;[place]lton;Sloughing 02/28/24956 Carine-Wound Assessment Dry 02/28/24956 Wound Length (cm) 1.5 cm 02/28/24956 Wound Width (cm) 3 cm 02/28/24956 Wound Surface Area (cm^2) 4.5 cm^2 02/28/24956 Wound Depth (cm) 0.1 cm 02/28/24956 Wound Volume (cm^3) 0.45 cm^3 02/28/24956 Wound Healing % -257 02/28/24956 Drainage Description Serosanguineous;Yellow 02/28/24956 Odor None 02/28/24956 Drainage Amount Moderate 02/28/24956 Treatments Cleansed 02/28/24 0957 Primary Dressing Alginate 02/28/24 1000 Secondary Dressing ABD 02/28/24 1000 Secured with Conforming kerlex;Silk tape 02/28/24 1000 Compression Surepress 02/28/24 1000 Periwound Dressing Moisturizing lotion 02/28/24 1000 Dressing Status New dressing;Clean, dry & intact 02/21/24 1000 Wound/Incision 02/21/24 Venous Ulcer Pretibial Left (Active) Wound Image 02/28/24 09 Site Assessment Eschar;Painful 02/28/24955 Carine-Wound Assessment Dry;Intact;Moist [...] provider verified the correct patient, procedure, equipment, passport support associate, and site/side marked as required. Debridement Details [...] with plan. Please see attached Discharge Instructions [facility] 02-21-2024 Hospital Discharge instructions Giuliana Radford RN - 02/21/2024 9:45 AM EST Return Appointment in: 1 week - Should you experience any significant changes in your wound(s) or have any questions regarding your home care instructions please contact the wound center at [phone] If after regular business hours, please call [...] lite applied for prevention. Nursing Care Facility: [facility] Wound Treatment to R toes- [...] daily and PRN. documented in this encounter [facility] 02-21-2024 Note [facility] Wound Care Progress Note CHIEF COMPLAINT: Wound [...] Right;Dorsal (Active) Wound Image 02/21/24948 Site Assessment Terlton;Granulation;Sloughing 02/21/24948 Carine-Wound Assessment Dry 02/21/24948 Wound Length [...] Site Assessment Red;Bleeding;Brown;Sloughing 02/21/24950 Carine-Wound Assessment Dry 02/21/24 09 Wound Length (cm) 2.4 cm 02/21/24950 Wound Width (cm) 2.2 cm 02/21/24950 Wound Surface Area (cm^2) 5.28 cm^2 02/21/24 09 Wound Depth (cm) 0.1 cm 02/21/24950 Wound [...] with plan. Please see attached Discharge Instructions [facility] 02-18-2024 Emergency department Note Aamir bernard at bedside [facility] 02-18-2024 Emergency department Note Aamir bernard at bedside Report called to [facility] at this time EMERGENCY DEPARTMENT ENCOUNTER Pt [...] of headache that was not relieved with Wilmore or Tylenol this evening at the senior living facility. The senior living facility sent him to the emergency department to be evaluated for his intractable headache. Nursing Notes were reviewed. Limitations to history: Altered mental status/confusion Outside historians: retirement facility REVIEW OF SYSTEMS Review of Systems [...] MG CAPSULE CHOLECALCIFEROL (VITAMIN D3) 1.25 MG (46550 UT) TABLET Take by mouth 1 (one) [...] Procedure Abnormality Status --------- ------ Comprehensive metabolic ...[[id number]] Abnormal Final result Please view results for [...] of headache that was not relieved with Wilmore or Tylenol this evening at the senior living facility. The senior living facility sent him to the emergency department [...] is ready to go back to the senior living facility. FINAL IMPRESSION 1. Nonintractable headache, unspecified chronicity pattern, unspecified headache type DISPOSITION Discharge 02/18/2024 02:49:31 AM PATIENT REFERRED TO: Demetrius Ortizsunday [address] [facility] [id number] DISCHARGE MEDICATIONS: New Prescriptions [...] 0250 Pt presents with headache, 12/18, from snf, unsure was if he was given any meds at snf, alert and oriented x3, disoriented to year, oriented to month, according to senior care he received norco and tylenol w no relief, per snf states he has constant headache documented in this encounter [facility] 02-18-2024 Emergency department Note Report called to snf at this time [facility] 02-18-2024 Hospital Discharge instructions Kaylee Bunch MD - 02/18/2024 2:49 AM EST Return if fever, focal numbness tingling weakness or as needed. The following attachments cannot be sent through Care Everywhere.Headache Discharge Instructions, Adult (Greek)documented in this encounter [facility] 02-18-2024 Emergency department Triage note Pt presents with headache, 12/18, from snf, unsure was if he was given any meds at snf, alert and oriented x3, disoriented to year, oriented to month, according to senior care he received norco and tylenol w no relief, per snf states he has constant headache [facility] 02-18-2024 Physician Emergency department Note EMERGENCY [...] of headache that was not relieved with Wilmore or Tylenol this evening at the senior living facility. The senior living facility sent him to the emergency department to be evaluated for his intractable headache. Nursing Notes were reviewed. Limitations to history: Altered mental status/confusion Outside historians: retirement facility REVIEW OF SYSTEMS Review of Systems [...] abscess 07/14/2022 Pancreatitis PVD (peripheral vascular disease) ([facility]) Reduced mobility Repeated falls SIRS (systemic inflammatory response syndrome) (HCC) TBI (traumatic brain injury) ([facility]) Venous insufficiency SURGICAL HISTORY Past Surgical History: [...] MG CAPSULE CHOLECALCIFEROL (VITAMIN D3) 1.25 MG (64294 UT) TABLET Take by mouth 1 (one) [...] Procedure Abnormality Status --------- ------ Comprehensive metabolic ...[[id number]] Abnormal Final result Please view results for [...] of headache that was not relieved with Wilmore or Tylenol this evening at the senior living facility. The senior living facility sent him to the emergency department [...] is ready to go back to the senior living facility. FINAL IMPRESSION 1. Nonintractable headache, unspecified chronicity pattern, unspecified headache type DISPOSITION Discharge 02/18/2024 02:49:31 AM PATIENT REFERRED TO: Demetrius Fenton [address] [facility] [id number] DISCHARGE MEDICATIONS: New Prescriptions No medications on file (Comment: Please note this report has been produced using speech recognition software and may contain errors related to that system including errors in grammar, punctuation, and spelling, as well as words and phrases that may be inappropriate. If there are any questions or concerns please feel free to contact the dictating provider for clarification.) Kalyee Bunch MD (electronically signed) Emergency Medicine Provider Kaylee Bunch MD 02/18/24249 [facility] 02-14-2024 History of Present illness Narrative Images from the original note were not included. [facility] Wound Care Progress Note CHIEF COMPLAINT: Wound [...] Right;Dorsal (Active) Wound Image 02/14/24843 Site Assessment Granulation;[place]lton 02/14/24843 Carine-Wound Assessment Moist 02/14/24843 Wound Length [...] attached Discharge Instructions documented in this encounter [facility] 02-14-2024 History of Present illness Narrative Images from the original note were not included. [facility] Wound Care Progress Note CHIEF COMPLAINT: Wound [...] Right;Dorsal (Active) Wound Image 02/14/24843 Site Assessment Granulation;Terlton 02/14/24843 Carine-Wound Assessment Moist 02/14/24843 Wound Length [...] attached Discharge Instructions documented in this encounter [facility] 02-14-2024 Hospital Discharge instructions Giuliana Radford RN - 02/14/2024 8:45 AM EST Return Appointment in: 1 week - Should you experience any significant changes in your wound(s) or have any questions regarding your home care instructions please contact the wound center at [phone] If after regular business hours, please call [...] lite applied for prevention. Nursing Care Facility: [facility] Wound Treatment to R toes- [...] daily and PRN. documented in this encounter [facility] 02-14-2024 Hospital Discharge instructions Giuliana Radford RN - 02/14/2024 8:45 AM EST Return Appointment in: 1 week - Should you experience any significant changes in your wound(s) or have any questions regarding your home care instructions please contact the wound center at [phone] If after regular business hours, please call [...] lite applied for prevention. Nursing Care Facility: [facility] Wound Treatment to R toes- [...] daily and PRN. documented in this encounter [facility] 02-14-2024 Miscellaneous Notes Encounter addended by: Marycarmen Corona RN on: 02/15/2024 9:48 AM Actions taken: Charge Capture section accepted documented in this encounter [facility] 02-14-2024 Note Encounter addended b y: Marycarmen Corona RN on: 02/15/2024 9:48 AM Actions taken: Charge Capture section accepted [facility] 02-14-2024 Note [facility] Wound Care Progress Note CHIEF COMPLAINT: Wound [...] Right;Dorsal (Active) Wound Image 02/14/24843 Site Assessment Granulation;Terlton 02/14/24843 Carine-Wound Assessment Moist 02/14/24843 Wound Length [...] with plan. Please see attached Discharge Instructions [facility] 02-07-2024 History of Present illness Narrative Images from the original note were not included. [facility] Wound Care Progress Note CHIEF COMPLAINT: Wound [...] Right;Dorsal (Active) Wound Image 02/07/24923 Site Assessment Granulation;Terlton;Swelling 02/07/24923 Carine-Wound Assessment Boggy;Moist 02/07/24923 Wound Length [...] attached Discharge Instructions documented in this encounter [facility] 02-07-2024 Hospital Discharge instructions Giuliana Radford RN - 02/07/2024 8:45 AM EDT Return Appointment in: 1 week - Should you experience any significant changes in your wound(s) or have any questions regarding your home care instructions please contact the wound center at [phone] If after regular business hours, please call [...] Take antibiotic as directed Nursing Care Facility: [facility] Wound Treatment to R toes- [...] daily and PRN. documented in this encounter [facility] 02-07-2024 Miscellaneous Notes Encounter addended by: Adriana Barbosa MA on: 02/07/2024 10:26 AM Actions taken: Flowsheet accepted Encounter addended by: Marycarmen Corona RN on: 02/07/2024 10:59 AM Actions taken: Charge Capture section accepted documented in this encounter [facility] 02-07-2024 Note Encounter addended b y: Adriana Barbosa MA on: 02/07/2024 10:26 AM Actions taken: Flowsheet accepted [facility] 02-07-2024 Note Encounter addended b y: Marycarmen Corona RN on: 02/07/2024 10:59 AM Actions taken: Charge Capture section accepted [facility] 02-07-2024 Note Encounter addended b y: Adriana Barbosa MA on: 02/07/2024 10:26 AM Actions taken: Flowsheet accepted [facility] 02-07-2024 Note Encounter addended b y: Marycarmen Corona RN on: 02/07/2024 10:59 AM Actions taken: Charge Capture section accepted [facility] 02-07-2024 Note Encounter addended b y: Adriana Barbosa MA on: 02/07/2024 10:26 AM Actions taken: Flowsheet accepted [facility] 02-07-2024 Note Encounter addended b y: Marycarmen Corona RN on: 02/07/2024 10:59 AM Actions taken: Charge Capture section accepted T [facility] 02-07-2024 Note Encounter addended b y: Adriana Barbosa MA on: 02/07/2024 10:26 AM Actions taken: Flowsheet accepted [facility] 02-07-2024 Note Encounter addended b y: Marycarmen Corona RN on: 02/07/2024 10:59 AM Actions taken: Charge Capture section accepted [facility] 02-07-2024 Note [facility] Wound Care Progress Note CHIEF COMPLAINT: Wound [...] Right;Dorsal (Active) Wound Image 02/07/24923 Site Assessment Granulation;Terlton;Swelling 02/07/24923 Carine-Wound Assessment Boggy;Moist 02/07/24923 Wound Length [...] with plan. Please see attached Discharge Instructions [facility] 01-31-2024 History of Present illness Narrative Images from the original note were not included. [facility] Wound Care Progress Note CHIEF COMPLAINT: Wound [...] Right;Dorsal (Active) Wound Image 01/31/24817 Site Assessment Granulation;Pale;Terlton 01/31/24817 Carine-Wound Assessment Moist 01/31/24817 Wound Length [...] attached Discharge Instructions documented in this encounter [facility] 01-31-2024 History of Present illness Narrative Images from the original note were not included. [facility] Wound Care Progress Note CHIEF COMPLAINT: Wound [...] Right;Dorsal (Active) Wound Image 01/31/24817 Site Assessment Granulation;Pale;Terlton 01/31/24817 Carine-Wound Assessment Moist 01/31/24817 Wound Length [...] attached Discharge Instructions documented in this encounter [facility] 01-31-2024 Hospital Discharge instructions Giuliana Radford RN - 01/31/2024 8:45 AM EDT Return Appointment in: 1 week - Should you experience any significant changes in your wound(s) or have any questions regarding your home care instructions please contact the wound center at [phone] If after regular business hours, please call [...] Take antibiotic as directed Nursing Care Facility: [facility] Wound Treatment to R toes- [...] daily and PRN. documented in this encounter [facility] 01-31-2024 Hospital Discharge instructions Giuliana Radford RN - 01/31/2024 8:45 AM EDT Return Appointment in: 1 week - Should you experience any significant changes in your wound(s) or have any questions regarding your home care instructions please contact the wound center at [phone] If after regular business hours, please call [...] Take antibiotic as directed Nursing Care Facility: [facility] Wound Treatment to R toes- [...] daily and PRN. documented in this encounter [facility] 01-31-2024 Miscellaneous Notes Encounter addended by: Marycarmen Corona RN on: 02/02/2024 10:55 AM Actions taken: Charge Capture section accepted documented in this encounter [facility] 01-31-2024 Note Encounter addended b y: Marycarmen Corona RN on: 02/02/2024 10:55 AM Actions taken: Charge Capture section accepted [facility] 01-31-2024 Note [facility] Wound Care Progress Note CHIEF COMPLAINT: Wound [...] Right;Dorsal (Active) Wound Image 01/31/24817 Site Assessment Granulation;Pale;Terlton 01/31/24817 Carine-Wound Assessment Moist 01/31/24817 Wound Length [...] with plan. Please see attached Discharge Instructions [facility] 01-24-2024 History of Present illness Narrative Images from the original note were not included. [facility] Wound Care Progress Note CHIEF COMPLAINT: Wound [...] attached Discharge Instructions documented in this encounter [facility] 01-24-2024 History of Present illness Narrative Images from the original note were not included. [facility] Wound Care Progress Note CHIEF COMPLAINT: Wound [...] attached Discharge Instructions documented in this encounter [facility] 01-24-2024 Hospital Discharge instructions Giuliana Radford RN - 01/24/2024 10:00 AM EDT Return Appointment in: 1 week - Should you experience any significant changes in your wound(s) or have any questions regarding your home care instructions please contact the wound center at [phone] If after regular business hours, please call [...] Take antibiotic as directed Nursing Care Facility: [facility] Wound Treatment to R toes- Daily Cleanse [...] daily and PRN. documented in this encounter [facility] 01-24-2024 Hospital Discharge instructions Giuliana Radford RN - 01/24/2024 10:00 AM EDT Return Appointment in: 1 week - Should you experience any significant changes in your wound(s) or have any questions regarding your home care instructions please contact the wound center at [phone] If after regular business hours, please call [...] Take antibiotic as directed Nursing Care Facility: [facility] Wound Treatment to R toes- [...] daily and PRN. documented in this encounter [facility] 01-24-2024 Miscellaneous Notes Encounter addended by: Sharla Beard LPN on: 01/24/2024 10:57 AM Actions taken: Flowsheet accepted, Follow-up modified documented in this encounter [facility] 01-24-2024 Miscellaneous Notes Encounter addended by: Sharla Beard LPN on: 01/24/2024 10:57 AM Actions taken: Flowsheet accepted, Follow-up modified Encounter addended by: Marycarmen Corona RN on: 01/30/2024 3:44 PM Actions taken: LDA properties accepted, Charge Capture section accepted documented in this encounter [facility] 01-24-2024 Note Encounter addended b y: Sharla Beard LPN on: 01/24/2024 10:57 AM Actions taken: Flowsheet accepted, Follow-up modified [facility] 01-24-2024 Note Encounter addended b y: Sharla Beard LPN on: 01/24/2024 10:57 AM Actions taken: Flowsheet accepted, Follow-up modified [facility] 01-24-2024 Note Encounter addended b y: Sharla Beard LPN on: 01/24/2024 10:57 AM Actions taken: Flowsheet accepted, Follow-up modified [facility] 01-24-2024 Note Encounter addended b y: Sharla Beard LPN on: 01/24/2024 10:57 AM Actions taken: Flowsheet accepted, Follow-up modified [facility] 01-24-2024 Note Encounter addended b y: Marycarmen Corona RN on: 01/30/2024 3:44 PM Actions taken: LDA properties accepted, Charge Capture section accepted [facility] 01-24-2024 Note Encounter addended b y: Sharla Beard LPN on: 01/24/2024 10:57 AM Actions taken: Flowsheet accepted, Follow-up modified [facility] 01-24-2024 Note [facility] Wound Care Progress Note CHIEF COMPLAINT: Wound [...] with plan. Please see attached Discharge Instructions [facility] 01-17-2024 History of Present illness Narrative Images from the original note were not included. [facility] Wound Care Progress Note CHIEF COMPLAINT: Wound [...] (Active) Wound Image 01/17/24 1005 Site Assessment Granulation;[place] 01/17/24 100 Carine-Wound Assessment Calloused;Moist 01/17/24 1005 [...] Drainage Description Red;Serosanguineous 01/17/24 1003 Odor None 01/17/243 Drainage Amount Small 01/17/243 Treatments Cleansed 01/17/24 1003 Primary Dressing Alginate 01/17/241004 Secondary Dressing 4x4 gauze 01/17/245 Secured with Kerlex;Silk tape 01/17/24 100 Compression Multilayer compression wrap - 3 layers [...] attached Discharge Instructions documented in this encounter [facility] 01-17-2024 Hospital Discharge instructions Giuliana Radford RN - 01/17/2024 9:45 AM EDT Return Appointment in: 1 week - Should you experience any significant changes in your wound(s) or have any questions regarding your home care instructions please contact the wound center at [phone] If after regular business hours, please call [...] Take antibiotic as directed Nursing Care Facility: [facility] Wound Treatment to R toes- [...] daily and PRN. documented in this encounter [facility] 01-17-2024 Note [facility] Wound Care Progress Note CHIEF COMPLAINT: Wound [...] - third Right;Anterior (Active) Wound Image 01/17/24 100 Site Assessment Granulation;Terlton 01/17/24 100 Carine-Wound Assessment Calloused;Moist 01/17/24 100 Wound Length (cm) 1.4 cm 01/17/24 100 Wound Width (cm) 3.5 cm 01/17/24 100 Wound Surface Area (cm^2) 4.9 cm^2 01/17/24 100 Wound Depth (cm) 0.2 cm 01/17/241004 Wound Volume (cm^3) 0.98 cm^3 01/17/24 100 Wound Healing % -678 01/17/24 100 Drainage Description Serosanguineous 01/17/24 100 Odor None 01/17/24 100 Drainage Amount Small 01/17/24 100 Treatments Cleansed 01/17/24 1005 Primary Dressing Alginate 01/17/24 1005 Secondary Dressing 4x4 gauze 01/17/24 100 Secured with Kerlex;Silk tape 01/17/24 100 Compression Double Layer tubigrip 11/08/23 1000 Dressing Status Clean, dry & intact;New dressing 01/10/24 09 Wound/Incision 11/15/23 Venous Ulcer Leg Right;Lower;Anterior;Lateral (Active) Wound Image 01/17/24 1003 Site Assessment Bleeding 01/17/24 100 Carine-Wound Assessment Dry;Intact 01/17/24 1003 Wound Length (cm) 1.1 cm 01/17/24 100 Wound Width (cm) 1.8 cm 01/17/24 100 Wound Surface Area (cm^2) 1.98 cm^2 01/17/24 100 Wound Depth (cm) 0.1 cm 01/17/24 100 Wound Volume (cm^3) 0.198 cm^3 01/17/24 1003 Wound Healing % 98 01/17/24 100 Drainage Description Red;Serosanguineous 01/17/24 1003 Odor None 01/17/24 100 Drainage Amount Small 01/17/24 1003 Treatments Cleansed [...] or implied. Please see attached Discharge Instructions [facility] 01-10-2024 History of Present illness Narrative Images from the original note were not included. [facility] Wound Care Progress Note CHIEF COMPLAINT: Wound [...] Right;Anterior (Active) Wound Image 01/10/24933 Site Assessment Granulation;[place] 01/10/24933 Carine-Wound Assessment Maceration 01/10/24933 Wound Length [...] Right;Lower;Anterior;Lateral (Active) Wound Image 01/10/24935 Site Assessment Dry;[place] 01/10/24935 Carine-Wound Assessment Dry 01/10/24935 Wound Length (cm) 0.7 cm 01/10/24935 Wound Width (cm) 0.5 cm 01/10/24935 Wound Surface Area (cm^2) 0.35 cm^2 01/10/24935 Wound Depth (cm) 0.1 cm 01/10/24935 Wound Volume (cm^3) 0.035 cm^3 01/10/24935 Wound Healing % 100 01/10/24935 Drainage Description Serosanguineous 01/10/24935 Odor None 01/10/24935 Drainage Amount Scant 10/02/24 0936 Treatments Cleansed 01/10/24 0936 Primary Dressing Alginate 01/03/24 1600 Secondary Dressing [...] attached Discharge Instructions documented in this encounter [facility] 01-10-2024 Hospital Discharge instructions Giuliana Radford RN - 01/10/2024 9:15 AM EDT Return Appointment in: 1 week - Should you experience any significant changes in your wound(s) or have any questions regarding your home care instructions please contact the wound center at [phone] If after regular business hours, please call [...] Take antibiotic as directed Nursing Care Facility: [facility] Wound Treatment to R toes- [...] daily and PRN. documented in this encounter [facility] 01-10-2024 Note [facility] Wound Care Progress Note CHIEF COMPLAINT: Wound [...] Right;Anterior (Active) Wound Image 01/10/24933 Site Assessment Granulation;[place] 01/10/24933 Carine-Wound Assessment Maceration 01/10/24933 Wound Length (cm) 1.5 cm 01/10/24933 Wound Width (cm) 3.5 cm 01/10/24933 Wound Surface Area (cm^2) 5.25 cm^2 01/10/24933 Wound Depth (cm) 0.2 cm 01/10/24933 Wound Volume (cm^3) 1.05 cm^3 01/10/24933 Wound Healing % -733 01/10/24933 Drainage Description Serosanguineous 01/10/2434 Odor None 01/10/2434 Drainage Amount Small 01/10/2434 Treatments Cleansed 01/10/2434 Primary Dressing Alginate 01/03/24 1600 Secondary Dressing 4x4 gauze 01/03/24 1600 Secured with Conforming kerlex;Silk tape 01/03/24 1600 Compression Double Layer tubigrip 11/08/23 1000 Dressing Status New dressing;Clean, dry & intact 12/27/23 1341 Wound/Incision 11/15/23 Venous Ulcer Leg Right;Lower;Anterior;Lateral (Active) Wound Image 01/10/24935 Site Assessment Dry;[place] 01/10/24935 Carine-Wound Assessment Dry 01/10/24935 Wound Length (cm) 0.7 cm 01/10/24935 Wound Width (cm) 0.5 cm 01/10/24935 Wound Surface Area (cm^2) 0.35 cm^2 01/10/24935 Wound Depth (cm) 0.1 cm 01/10/24935 Wound Volume (cm^3) 0.035 cm^3 01/10/24935 Wound Healing % 100 01/10/24935 Drainage Description Serosanguineous 01/10/24935 Odor None 01/10/24935 Drainage Amount Scant 01/10/2436 Treatments Cleansed 01/10/24 0936 Primary Dressing Alginate 01/03/24 1600 Secondary Dressing [...] or implied. Please see attached Discharge Instructions [facility] 01-03-2024 History of Present illness Narrative Images from the original note were not included. [facility] Wound Care Progress Note CHIEF COMPLAINT: Wound [...] (Active) Wound Image 01/03/24 1523 Site Assessment Granulation;Pale;[place];Sloughing 01/03/24 1523 Carine-Wound Assessment Maceration;Edema 01/03/24 1523 [...] Site Assessment Dry;Eschar 01/03/24 1522 Carine-Wound Assessment [place] 01/03/24 1522 Wound Length (cm) 1.5 cm [...] attached Discharge Instructions documented in this encounter [facility] 01-03-2024 Hospital Discharge instructions Giuliana Radford RN - 01/03/2024 3:15 PM EDT Return Appointment in: 1 week - Should you experience any significant changes in your wound(s) or have any questions regarding your home care instructions please contact the wound center at [phone] If after regular business hours, please call [...] Take antibiotic as directed Nursing Care Facility: [facility] Wound Treatment to R toes- [...] daily and PRN. documented in this encounter [facility] 01-03-2024 Note [facility] Wound Care Progress Note CHIEF COMPLAINT: Wound [...] (Active) Wound Image 01/03/24 1523 Site Assessment Granulation;Pale;[place];Sloughing 01/03/24 1523 Carine-Wound Assessment Maceration;Edema 01/03/24 1523 [...] Site Assessment Dry;Eschar 01/03/24 1522 Carine-Wound Assessment [place] 01/03/24 1522 Wound Length (cm) 1.5 cm [...] or implied. Please see attached Discharge Instructions [facility] 12-27-2023 Hospital Discharge instructions Giuliana Radford RN - 12/27/2023 2:45 PM EDT Return Appointment in: 1 week - Should you experience any significant changes in your wound(s) or have any questions regarding your home care instructions please contact the wound center at [phone] If after regular business hours, please call [...] Take antibiotic as directed Nursing Care Facility: [facility] Wound Treatment to R toes- [...] daily and PRN. documented in this encounter [facility] 12-27-2023 Note [facility] Wound Care Progress Note CHIEF COMPLAINT: Wound [...] (Active) Wound Image 12/27/23 1341 Site Assessment Granulation;[place];Sloughing 12/27/23 1341 Carine-Wound Assessment Maceration;Moist 12/27/23 1341 [...] 12/27/23 1341 Secondary Dressing 4x4 gauze;ABD 12/27/23 134 Secured with Kerlex;Paper tape 12/27/23 1341 Compression Double Layer tubigrip 11/08/23 1000 Dressing Status New dressing;Clean, dry & intact 12/27/23 1341 Wound/Incision 11/15/23 Venous Ulcer Leg Right;Lower;Anterior;Lateral (Active) Wound Image 12/27/23 1340 Site Assessment [place];Red 12/27/23 1340 Carine-Wound Assessment Dry 12/27/23 1340 [...] or implied. Please see attached Discharge Instructions [facility] 12-20-2023 History of Present illness Narrative Images from the original note were not included. [facility] Wound Care Progress Note CHIEF COMPLAINT: Wound [...] (Active) Wound Image 12/20/23 1108 Site Assessment Granulation;[place];Red 12/20/23 1108 Carine-Wound Assessment Moist ;Maceration 12/20/23 [...] attached Discharge Instructions documented in this encounter [facility] 12-20-2023 Hospital Discharge instructions Giuliana Radford RN - 12/20/2023 11:00 AM EDT Return Appointment in: 1 week - Should you experience any significant changes in your wound(s) or have any questions regarding your home care instructions please contact the wound center at [phone] If after regular business hours, please call [...] Take antibiotic as directed Nursing Care Facility: [facility] Wound Treatment to R toes- [...] daily and PRN. documented in this encounter [facility] 12-20-2023 Note [facility] Wound Care Progress Note CHIEF COMPLAINT: Wound [...] (Active) Wound Image 12/20/23 1108 Site Assessment Granulation;[place];Red 12/20/238 Carine-Wound Assessment Moist ;Maceration 12/20/23 1108 [...] or implied. Please see attached Discharge Instructions [facility] 12-13-2023 History of Present illness Narrative Images from the original note were not included. [facility] Wound Care Progress Note CHIEF COMPLAINT: Wound [...] - third Right;Anterior (Active) Wound Image 12/13/23 1532 Site Assessment [place];Red;Sloughing 12/13/23 153 Carine-Wound Assessment Moist ;Maceration 12/13/23 [...] attached Discharge Instructions documented in this encounter [facility] 12-13-2023 Hospital Discharge instructions Giuliana Radford RN - 12/13/2023 3:15 PM EDT Return Appointment in: 1 week - Should you experience any significant changes in your wound(s) or have any questions regarding your home care instructions please contact the wound center at [phone] If after regular business hours, please call [...] Take antibiotic as directed Nursing Care Facility: [facility] Wound Treatment to R toes- [...] daily and PRN. documented in this encounter [facility] 12-13-2023 Miscellaneous Notes Encounter addended by: Renetta Majano LPN on: 12/13/2023 4:16 PM Actions taken: Flowsheet accepted documented in this encounter [facility] 12-13-2023 Note Encounter addended b y: Renetta Majano LPN on: 12/13/2023 4:16 PM Actions taken: Flowsheet accepted [facility] 12-13-2023 Note Encounter addended b y: Renetta Majano LPN on: 12/13/2023 4:16 PM Actions taken: Flowsheet accepted [facility] 12-13-2023 Note Encounter addended b y: Renetta Majano LPN on: 12/13/2023 4:16 PM Actions taken: Flowsheet accepted [facility] 12-13-2023 Note [facility] Wound Care Progress Note CHIEF COMPLAINT: Wound [...] (Active) Wound Image 12/13/23 153 Site Assessment Terlton;Red;Sloughing 12/13/23 153 Carine-Wound Assessment Moist ;Maceration 12/13/23 [...] or implied. Please see attached Discharge Instructions [facility] 12-13-2023 Note Encounter addended b y: Renetta Majano LPN on: 12/13/2023 4:16 PM Actions taken: Flowsheet accepted [facility] 12-06-2023 History of Present illness Narrative Images from the original note were not included. [facility] Wound Care Progress Note CHIEF COMPLAINT: Wound [...] (Active) Wound Image 12/06/23 1050 Site Assessment [place];Red;Sloughing 12/06/23 1050 Carine-Wound Assessment Moist ;Maceration 12/06/23 [...] (Active) Wound Image 12/06/23 1048 Site Assessment Dry;[place];Sloughing 12/06/23 1048 Carine-Wound Assessment Edema;[place] 12/06/23 1048 Wound Length (cm) 4 cm [...] attached Discharge Instructions documented in this encounter [facility] 12-06-2023 Hospital Discharge instructions Giuliana Radford RN - 12/06/2023 10:30 AM EDT Return Appointment in: 1 week - Should you experience any significant changes in your wound(s) or have any questions regarding your home care instructions please contact the wound center at [phone] If after regular business hours, please call [...] Take antibiotic as directed Nursing Care Facility: [facility] Wound Treatment to R toes- [...] daily and PRN. documented in this encounter [facility] 12-06-2023 Note [facility] Wound Care Progress Note CHIEF [...] (Active) Wound Image 12/06/23 1050 Site Assessment [place];Red;Sloughing 12/06/23 1050 Carine-Wound Assessment Moist ;Maceration 12/06/23 [...] (Active) Wound Image 12/06/23 1048 Site Assessment Dry;[place];Sloughing 12/06/23 1048 Carine-Wound Assessment Edema;[place] 12/06/23 1048 Wound Length (cm) 4 cm [...] or implied. Please see attached Discharge Instructions [facility] 11-29-2023 History of Present illness Narrative Images from the original note were not included. [facility] Wound Care Progress Note CHIEF COMPLAINT: Wound [...] 1053 Site Assessment Red;Sloughing;Dark edges 11/29/23 1053 Craine-Wound Assessment Edema;Red;Excoriated 11/29/23 1053 Wound Length (cm) [...] attached Discharge Instructions documented in this encounter [facility] 11-29-2023 Hospital Discharge instructions Giuliana Radford RN - 11/29/2023 10:15 AM EDT Return Appointment in: 1 week - Should you experience any significant changes in your wound(s) or have any questions regarding your home care instructions please contact the wound center at [phone] If after regular business hours, please call [...] Take antibiotic as directed Nursing Care Facility: [facility] Wound Treatment to R toes- [...] daily and PRN. documented in this encounter [facility] 11-29-2023 Note [facility] Wound Care Progress Note CHIEF COMPLAINT: Wound [...] or implied. 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 [facility] Wound Care Progress Note CHIEF COMPLAINT: Wound [...] provider verified the correct patient, procedure, equipment, passport support associate, and site/side marked as required. Debridement Details [...] attached Discharge Instructions documented in this encounter [facility] 11-22-2023 Hospital Discharge instructions Giuliana Radford RN - 11/22/2023 10:45 AM EDT Return Appointment in: 1 week - Should you experience any significant changes in your wound(s) or have any questions regarding your home care instructions please contact the wound center at [phone] If after regular business hours, please call [...] Take antibiotic as directed Nursing Care Facility: [facility] Wound Treatment to R toes- [...] daily and PRN. documented in this encounter [facility] 11-22-2023 Note [facility] Wound Care Progress Note CHIEF COMPLAINT: Wound [...] or implied. Please see attached Discharge Instructions [facility] 11-22-2023 Note [facility] Wound Care Progress Note CHIEF COMPLAINT: Wound [...] provider verified the correct patient, procedure, equipment, passport support associate, and site/side marked as required. Debridement Details [...] infection Reviewed ac (more content not included)... [facility] 11-17-2023 History of Present illness Narrative Images from the original note were not included. [facility] Nurse Visit Note [...] stable condition. Ambulatory Status: Wheelchair Discharge Destination: senior living facility Transportation: Private Auto Accompanied by: caregiver Schedule Follow up Appointment: no No orders of the defined types were placed in this encounter. documented in this encounter [facility] 11-17-2023 Note Encounter addended b y: Marycarmen Corona RN on: 11/20/2023 7:52 AM Actions taken: Care Teams modified, Charge Capture section accepted [facility] 11-15-2023 History of Present illness Narrative Images from the original note were not included. [facility] Wound Care Progress Note CHIEF COMPLAINT: Wound [...] Test Results/Process Orders 10 [] Staff telephones [facility], Nursing Homes/Clarify Orders 10 [] Routine Transfer [...] or more Points) documented in this encounter [facility] 11-15-2023 Hospital Discharge instructions Giuliana Radford RN - 11/15/2023 10:45 AM EDT Return Appointment in: 1 week - Should you experience any significant changes in your wound(s) or have any questions regarding your home care instructions please contact the wound center at [phone] If after regular business hours, please call [...] Take antibiotic as directed Nursing Care Facility: [facility] Wound Treatment to R toes- [...] daily and PRN. documented in this encounter [facility] 11-15-2023 Note [facility] Wound Care Progress Note CHIEF COMPLAINT: Wound [...] or implied. Please see attached Discharge Instructions [facility] 11-08-2023 History of Present illness Narrative Images from the original note were not included. [facility] Wound Care Progress Note CHIEF COMPLAINT: Wound [...] Right;Anterior (Active) Wound Image 11/08/23945 Site Assessment Painful;Pale;[place];Red;Sloughing 11/08/23945 Carine-Wound Assessment Macerated;Moist ;Painful 11/08/23945 Wound [...] Test Results/Process Orders 10 [x] Staff telephones [facility], Nursing Homes/Clarify Orders 10 [x] Routine Transfer [...] or more Points) documented in this encounter [facility] 11-08-2023 History of Present illness Narrative Images from the original note were not included. [facility] Wound Care Progress Note CHIEF COMPLAINT: Wound [...] (Active) Wound Image 11/08/23 09 Site Assessment Painful;Pale;[place];Red;Sloughing 11/08/23945 Carine-Wound Assessment Macerated;Moist ;Painful 11/08/23 09 Wound Length (cm) 6 cm 11/08/23 09 Wound Width (cm) 6.5 cm 11/08/23945 Wound Surface Area (cm^2) 39 cm^2 11/08/23 09 Wound Depth (cm) 0.3 cm 11/08/23 09 Wound Volume (cm^3) 11.7 cm^3 11/08/23 0946 Wound Healing % -9186 11/08/23 09 Drainage Description Serosanguineous 11/08/23 09 Odor Mild 11/08/23 0946 Drainage Amount Large 11/08/23 0946 Treatments Cleansed [...] Test Results/Process Orders 10 [x] Staff telephones [facility], Nursing Homes/Clarify Orders 10 [x] Routine Transfer [...] or more Points) documented in this encounter [facility] 11-08-2023 Hospital Discharge instructions Giuliana Radford RN - 11/08/2023 9:30 AM EDT Return Appointment in: 1 week - Should you experience any significant changes in your wound(s) or have any questions regarding your home care instructions please contact the wound center at [phone] If after regular business hours, please call [...] Take antibiotic as directed Nursing Care Facility: [facility] Wound Treatment to R toes and R leg: Daily Cleanse wound with mild soap and water and pat dry. Apply Calcium Alginate Apply dry dressing to cover the wound and secure with tape. 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 documented in this encounter [facility] 11-08-2023 Hospital Discharge instructions Giuliana Radford RN - 11/08/2023 9:30 AM EDT Return Appointment in: 1 week - Should you experience any significant changes in your wound(s) or have any questions regarding your home care instructions please contact the wound center at [phone] If after regular business hours, please call [...] Take antibiotic as directed Nursing Care Facility: [facility] Wound Treatment to R toes and R leg: Daily Cleanse wound with mild soap and water and pat dry. Apply Calcium Alginate Apply dry dressing to cover the wound and secure with tape. 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 documented in this encounter [facility] 07-31-2024 Miscellaneous Notes Encounter addended by: Marycarmen Corona RN on: 11/09/2023 10:22 AM Actions taken: Charge Capture section accepted documented in this encounter [facility] 11-08-2023 Note Encounter addended b y: Marycarmen Corona RN on: 11/09/2023 10:22 AM Actions taken: Charge Capture section accepted [facility] 11-08-2023 Note Encounter addended b y: Marycarmen Corona RN on: 11/09/2023 10:22 AM Actions taken: Charge Capture section accepted [facility] 11-08-2023 Note [facility] Wound Care Progress Note CHIEF COMPLAINT: Wound [...] Right;Anterior (Active) Wound Image 11/08/23945 Site Assessment Painful;Pale;[place];Red;Sloughing 11/08/23945 Carine-Wound Assessment Macerated;Moist ;Painful 11/08/23945 Wound Length (cm) 6 cm 11/08/23945 Wound Width (cm) 6.5 cm 11/08/23945 Wound Surface Area (cm^2) 39 cm^2 11/08/23945 Wound Depth (cm) 0.3 cm 11/08/23945 Wound Volume (cm^3) 11.7 cm^3 11/08/23945 Wound Healing % -9186 11/08/23945 Drainage Description Serosanguineous 11/08/23945 Odor Mild 11/08/23945 Drainage Amount Large 11/08/23945 Treatments Cleansed 11/08/23945 Primary Dressing Alginate 11/08/23 1000 Secondary Dressing [...] or implied. Please see attached Discharge Instructions [facility] 11-01-2023 History of Present illness Narrative Images from the original note were not included. [facility] Wound Care Progress Note CHIEF COMPLAINT: Wound [...] (Active) Wound Image 11/01/23 08 Site Assessment Red;[place];Sloughing 11/01/23 08 Carine-Wound Assessment Macerated;Moist 11/01/23 0856 Wound Length (cm) 5.4 cm 11/01/23 0856 Wound Width (cm) 7.5 cm 11/01/23 0856 Wound Surface Area (cm^2) 40.5 cm^2 11/01/23 0856 Wound Depth (cm) 0.2 cm 11/01/23 0856 Wound Volume (cm^3) 8.1 cm^3 11/01/23 0856 Wound Healing % -6329 11/01/23 0856 Drainage Description Serosanguineous 11/01/23 08 Odor Malodorous/putrid 11/01/23 08 Drainage Amount Copious 11/01/23 08 Treatments Cleansed 11/01/23 08 Primary Dressing Calcium alginate 10/18/23 1044 Secondary Dressing Sorbex 10/18/23 1044 Secured with Kerlex;Paper tape 10/18/23 1044 Compression Surepress 10/18/23 1044 Dressing Status New dressing;Clean, dry & intact 10/18/23 1044 Wound/Incision 10/25/23 Venous Ulcer Leg Distal;Right;Anterior (Active) Wound Image 11/01/23 0858 Site Assessment [place] 11/01/23 0858 Carine-Wound Assessment Dry 11/01/23 0858 [...] attached Discharge Instructions documented in this encounter [facility] 11-01-2023 Hospital Discharge instructions Giuliana Radford RN - 11/01/2023 8:30 AM EDT Return Appointment in: 1 week - Should you experience any significant changes in your wound(s) or have any questions regarding your home care instructions please contact the wound center at [phone] If after regular business hours, please call [...] Take antibiotic as directed Nursing Care Facility: [facility] Wound Treatment to R toes: Daily Cleanse [...] daily and PRN. documented in this encounter [facility] 11-01-2023 Miscellaneous Notes Encounter addended by: Marycarmen Corona RN on: 11/01/2023 11:27 AM Actions taken: Charge Capture section accepted documented in this encounter [facility] 11-01-2023 Note Encounter addended b y: Marycarmen Corona RN on: 11/01/2023 11:27 AM Actions taken: Charge Capture section accepted [facility] 11-01-2023 Note Encounter addended b y: Marycarmen Corona RN on: 11/01/2023 11:27 AM Actions taken: Charge Capture section accepted [facility] 11-01-2023 Note Encounter addended b y: Marycarmen Corona RN on: 11/01/2023 11:27 AM Actions taken: Charge Capture section accepted [facility] 11-01-2023 Note [facility] Wound Care Progress Note CHIEF COMPLAINT: Wound [...] (Active) Wound Image 11/01/23 08 Site Assessment Red;[place];Sloughing 11/01/23 08 Carine-Wound Assessment Macerated;Moist 11/01/23 08 [...] (Active) Wound Image 11/01/23 0858 Site Assessment [place] 11/01/23 0858 Carine-Wound Assessment Dry 11/01/23 0858 [...] or implied. 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 [facility] Wound Care Progress Note CHIEF COMPLAINT: Wound [...] (Active) Wound Image 10/25/23 0855 Site Assessment Pale;[place];Sloughing 10/25/23 0855 Carine-Wound Assessment Maceration 10/25/23 0855 [...] (Active) Wound Image 10/25/23 0858 Site Assessment Pale;[place];Sloughing 10/25/23 0858 Carine-Wound Assessment Maceration 10/25/23 0858 [...] (Active) Wound Image 10/25/23 0857 Site Assessment Intact;[place] 10/25/23 0857 Carine-Wound Assessment Intact 10/25/23 0857 [...] 0902 Wound Depth (cm) 0.1 cm 10/25/23 0902 Wound Volume (cm^3) 0.108 cm^3 10/25/23 0902 Drainage Description Serosanguineous 10/25/23 0902 Odor None [...] provider verified the correct patient, procedure, equipment, passport support associate, and site/side marked as required. Debridement Details [...] attached Discharge Instructions documented in this encounter [facility] 10-25-2023 Hospital Discharge instructions Giuliana Radford RN - 10/25/2023 8:30 AM EDT Return Appointment in: 1 week - Should you experience any significant changes in your wound(s) or have any questions regarding your home care instructions please contact the wound center at [phone] If after regular business hours, please call [...] Take antibiotic as directed Nursing Care Facility: [facility] Wound Treatment: Wound: right toes and RLE Dressing Frequency: Dressing weekly Wound Cleansing: OK to shower if wound dressing covered Apply hydrafera blue Secondary Dressing: Superabsorbent pad or sorbex Secure With: Kerlex Roll gauze 4, Silk Tape 1 Compression: Unna boot profore lite Apply Barrier Cream to bilateral buttocks and sacral area daily and PRN. documented in this encounter [facility] 10-25-2023 Note [facility] Wound Care Progress Note CHIEF COMPLAINT: Wound [...] (Active) Wound Image 10/25/23 0855 Site Assessment Pale;[place];Sloughing 10/25/23 0855 Carine-Wound Assessment Maceration 10/25/23 0855 Wound Length (cm) 1.4 cm 10/25/23 0855 Wound Width (cm) 2.3 cm 10/25/23 0855 Wound Surface Area (cm^2) 3.22 cm^2 10/25/23 08 Wound Depth (cm) 0.2 cm 10/25/23 08 Wound Volume (cm^3) 0.644 cm^3 10/25/23 08 Wound Healing % -61 10/25/23 08 Drainage Description Serosanguineous 10/25/23 0855 Odor None 10/25/23 08 Drainage Amount Moderate 10/25/23 0855 Treatments Irrigation 10/25/23 0855 Primary Dressing Calcium alginate 10/18/23 1046 Secondary Dressing Sorbex 10/18/23 1046 Secured with Kerlex;Silk tape 10/18/23 1046 Compression Surepress 10/18/23 1046 Dressing Status New dressing;Clean, dry & intact 10/18/23 1046 Wound/Incision 08/23/23 Lymphedema Toe - third Right (Active) Wound Image 10/25/23 0858 Site Assessment Pale;[place];Sloughing 10/25/23 0858 Carine-Wound Assessment Maceration 10/25/23 0858 [...] (Active) Wound Image 10/25/23 0857 Site Assessment Intact;[place] 10/25/23 0857 Carine-Wound Assessment Intact 10/25/23 0857 [...] 0902 Wound Width (cm) 1.2 cm 10/25/23 09 Wound Surface Area (cm^2) 1.08 cm^2 10/25/23 09 Wound Depth (cm) 0.1 cm 10/25/23 0902 Wound Volume (cm^3) 0.108 cm^3 10/25/23 09 Drainage Description Serosanguineous 10/25/23 0902 Odor None 10/25/23 0902 Drainage Amount Scant 10/25/23 0902 Treatments Cleansed 10/25/23 0902 Debridement Wound/Incision 08/23/23 Lymphedema Toe- second Right Wound/Incision 08/23/23 Lymphedema Toe - third Right Wound/Incision 10/18/23 Lymphedema Toe - great Right Performed by: Julissa Taylor, DO Authorized by: Julissa Taylor, DO Consent Consent obtained? verbal Consent given by: patient Risks discussed? procedural risks discussed Immediately prior to the procedure a time out was called and the performing provider verified the correct patient, procedure, equipment, passport support associate, and site/side marked as required. Debridement Details Performed by (more content not included)... [facility] 10-18-2023 History of Present illness Narrative Images from the original note were not included. [facility] Wound Care Progress Note CHIEF COMPLAINT: Wound [...] (Active) Wound Image 10/18/23 1046 Site Assessment Pale;[place];Sloughing;Maceration 10/18/23 1046 Carine-Wound Assessment Maceration 10/18/23 1046 Wound Length (cm) 1.4 cm 10/18/23 104 Wound Width (cm) 2.4 cm 10/18/23 1046 Wound Surface Area (cm^2) 3.36 cm^2 10/18/23 1046 Wound Depth (cm) 0.3 cm 10/18/23 104 Wound Volume (cm^3) 1.008 cm^3 10/18/23 1046 Wound Healing % -152 10/18/231045 Drainage Description Serosanguineous 10/18/23 1046 Odor Mild 10/18/236 Drainage Amount Large 10/18/23 1046 Treatments Cleansed 10/18/23 1046 Primary Dressing Alginate 10/11/23 1000 Secondary Dressing 4x4 gauze 10/11/23 1000 Secured with Kerlex;Silk tape 10/11/23 1000 Compression Unna boot;Multilayer compression wrap - 3 layers 10/11/23 1000 Dressing Status New dressing;Clean, dry & intact 10/04/23 1407 Wound/Incision 08/23/23 Venous Ulcer Toe - third Right (Active) Wound Image 10/18/23 104 Site Assessment Maceration;Pale;[place];Sloughing 10/18/234 Carine-Wound Assessment Macerated;Pale 10/18/23 1044 Wound Length [...] (Active) Wound Image 10/18/23 1049 Site Assessment Maceration;[place] 10/18/23 1049 Carine-Wound Assessment Moist 10/18/23 1049 [...] attached Discharge Instructions documented in this encounter [facility] 10-18-2023 History of Present illness Narrative Images from the original note were not included. [facility] Wound Care Progress Note CHIEF COMPLAINT: Wound [...] (Active) Wound Image 10/18/23 1046 Site Assessment Pale;[place];Sloughing;Maceration 10/18/23 1046 Carine-Wound Assessment Maceration 10/18/23 1046 [...] (Active) Wound Image 10/18/23 1044 Site Assessment Maceration;Pale;[place];Sloughing 10/18/23 104 Carine-Wound Assessment Macerated;Pale 10/18/23 1044 Wound Length [...] (Active) Wound Image 10/18/23 1049 Site Assessment Maceration;[place] 10/18/23 1049 Carine-Wound Assessment Moist 10/18/23 1049 [...] treatment. Patient understands all risks, benefits, procedures, craine-operative management, and possible complications. All questions answered [...] attached Discharge Instructions documented in this encounter [facility] 10-18-2023 Hospital Discharge instructions Marycarmen Corona RN - 10/18/2023 10:15 AM EDT Return Appointment in: 1 week - Should you experience any significant changes in your wound(s) or have any questions regarding your home care instructions please contact the wound center at [phone] If after regular business hours, please call [...] Take antibiotic as directed Nursing Care Facility: [facility] Wound Treatment: Wound: right toes Dressing Frequency: [...] daily and PRN. documented in this encounter [facility] 10-18-2023 Hospital Discharge instructions Marycarmen Corona RN - 10/18/2023 10:15 AM EDT Return Appointment in: 1 week - Should you experience any significant changes in your wound(s) or have any questions regarding your home care instructions please contact the wound center at [phone] If after regular business hours, please call [...] Take antibiotic as directed Nursing Care Facility: [facility] Wound Treatment: Wound: right toes Dressing Frequency: [...] daily and PRN. documented in this encounter [facility] 10-18-2023 Miscellaneous Notes Encounter addended by: Marycarmen Corona RN on: 10/20/2023 11:57 AM Actions taken: LDA properties accepted documented in this encounter [facility] 10-18-2023 Note Encounter addended b y: Marycarmen Corona RN on: 10/20/2023 11:57 AM Actions taken: LDA properties accepted [facility] 10-18-2023 Note [facility] Wound Care Progress Note CHIEF COMPLAINT: Wound [...] (Active) Wound Image 10/18/23 1046 Site Assessment Pale;[place];Sloughing;Maceration 10/18/23 1046 Carine-Wound Assessment Maceration 10/18/23 1046 [...] (Active) Wound Image 10/18/23 1044 Site Assessment Maceration;Pale;[place];Sloughing 10/18/23 1044 Carine-Wound Assessment Macerated;Pale 10/18/23 1044 [...] Anterior;Right (Active) Wound Image 10/18/231048 Site Assessment Maceration;[place] 10/18/231048 Carine-Wound Assessment Moist 10/18/239 Wound Length (cm) 0.4 cm 10/18/239 Wound Width (cm) 1.4 cm 10/18/23 1049 [...] water Order Specifi (more content not included)... 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 [facility] Wound Care Progress Note CHIEF COMPLAINT: Wound [...] (Active) Wound Image 10/04/23 1407 Site Assessment Granulation;Painful;Pale;[place];Slou ghing 10/11/23 09 Carine-Wound Assessment Maceration 10/11/23 09 Wound Length (cm) 1.5 cm 10/11/23908 Wound Width (cm) 1.7 cm 10/11/23 09 Wound Surface Area (cm^2) 2.55 cm^2 10/11/23 09 Wound Depth (cm) 0.1 cm 10/11/23908 Wound Volume (cm^3) 0.255 cm^3 10/11/23908 Wound Healing % 36 10/11/23 09 Drainage Description Serosanguineous;[place] 10/11/23908 Odor None 10/11/23 09 Drainage Amount Moderate 10/11/23 09 Treatments Cleansed 10/11/23 0909 Primary Dressing Alginate 10/11/23 1000 Secondary Dressing 4x4 gauze 10/11/23 1000 Secured with Kerlex;Silk tape 10/11/23 1000 Compression Unna boot;Multilayer compression wrap - 3 layers 10/11/23 1000 Dressing Status New dressing;Clean, dry & intact 10/04/23 1407 Wound/Incision 08/23/23 Venous Ulcer Toe - third Right (Active) Wound Image 10/11/23 09 Site Assessment Dark edges;Painful;[place];Sloughing 10/11/23912 Carine-Wound Assessment Moist ;Dark edges 10/11/23912 Wound Length (cm) 0.6 cm 10/11/23912 Wound Width (cm) 0.5 cm 10/11/23912 Wound Surface Area (cm^2) 0.3 cm^2 10/11/23912 Wound Depth (cm) 0.1 cm 10/11/23912 Wound Volume (cm^3) 0.03 cm^3 10/11/23912 Wound Healing % 76 10/11/23912 Drainage Description Serosanguineous;[place] 10/11/23 0913 Odor None 10/11/2313 Drainage Amount Moderate 10/11/23 0913 Treatments Cleansed [...] provider verified the correct patient, procedure, equipment, passport support associate, and site/side marked as required. Debridement Details [...] provider verified the correct patient, procedure, equipment, passport support associate, and site/side marked as required. Debridement Details [...] attached Discharge Instructions documented in this encounter [facility] 10-11-2023 Hospital Discharge instructions Debbie Mckeon RN - 10/11/2023 8:45 AM EDT Return Appointment in: 1 week - Should you experience any significant changes in your wound(s) or have any questions regarding your home care instructions please contact the wound center at [phone] If after regular business hours, please call [...] help with wound healing Nursing Care Facility: [facility] Wound Treatment: Wound: right toes Dressing Frequency: Keep dressing in place all week Wound Cleansing: May shower with protection - Protect wound and dressing with water repellant cover/cast cover (e.g., large plastic bag) which can be obtained at [facility] and may take shower. Hold Collagen AG for now Secondary Dressing: Calcium Alginate 4x4 Secure With: Kerlex Roll gauze 4, Silk Tape 1 Compression: Unna boot & multilayer compression wrap - 3 layers (cover toes) Apply Barrier Cream to bilateral buttocks and sacral area daily and PRN. documented in this encounter [facility] 10-11-2023 Note [facility] Wound Care Progress Note CHIEF COMPLAINT: Wound [...] (Active) Wound Image 10/04/23 1407 Site Assessment Granulation;Painful;Pale;Terlton;Slou ghing 10/11/23 0909 Carine-Wound Assessment Maceration 10/11/23 [...] Wound Image 10/11/23 0913 Site Assessment Dark edges;Painful;[place];Sloughing 10/11/23 0913 Carine-Wound Assessment Moist ;Dark edges 10/11/23912 Wound Length (cm) 0.6 cm 10/11/23912 Wound Width (cm) 0.5 cm 10/11/23912 Wound Surface Area (cm^2) 0.3 cm^2 10/11/23912 Wound Depth (cm) 0.1 cm 10/11/23912 Wound Volume (cm^3) 0.03 cm^3 10/11/23912 Wound Healing % 76 10/11/23912 Drainage Description Serosanguineous;Pastrana 10/11/23912 Odor None 10/11/23912 Drainage Amount Moderate 10/11/23912 Treatments Cleansed 10/11/23912 Primary Dressing Alginate 10/11/23 [...] provider verified the correct patient, procedure, equipment, passport support associate, and site/side marked as required. Debridement Details [...] provider verified the correct patient, procedure, equipment, passport support associate, and site/side marked as required. Debridement Details Performed by: physician Debridement type: surgical Level of debridement: subcutaneous tissue Pain control: lidocaine 2% Pain control administration type: topical Pre-debridement measurements Length (cm): 0. (more content not included)... 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 [facility] Wound Care Progress Note CHIEF COMPLAINT: Wound [...] (Active) Wound Image 10/04/23 1407 Site Assessment Painful;Pale;[place];Sloughing 10/04/23 1407 Carine-Wound Assessment Macerated 10/04/23 1407 [...] (Active) Wound Image 10/04/23 1410 Site Assessment Terlton;Pale 10/04/23 1410 Carine-Wound Assessment Macerated 10/04/23 1410 [...] provider verified the correct patient, procedure, equipment, passport support associate, and site/side marked as required. Debridement Details [...] provider verified the correct patient, procedure, equipment, passport support associate, and site/side marked as required. Debridement Details [...] attached Discharge Instructions documented in this encounter [facility] 10-04-2023 Hospital Discharge instructions Lucinda Lima RN - 10/04/2023 1:45 PM EDT Return Appointment in: 1 week - Should you experience any significant changes in your wound(s) or have any questions regarding your home care instructions please contact the wound center at [phone] If after regular business hours, please call [...] help with wound healing Nursing Care Facility: [facility] Wound Treatment: Wound: right toes Dressing Frequency: Keep dressing in place all week Wound Cleansing: May shower with protection - Protect wound and dressing with water repellant cover/cast cover (e.g., large plastic bag) which can be obtained at [facility] and may take shower. Primary Dressing: Collagen Ag 2x2 Secondary Dressing: Calcium Alginate 4x4 Secure With: Kerlex Roll gauze 4, Silk Tape 1 Compression: Unna boot & multilayer compression wrap - 3 layers (cover toes) Apply Barrier Cream to bilateral buttocks and sacral area daily and PRN. documented in this encounter [facility]04[facility]2023 [facility] W[facility] Care Progress Note CHIEF [...] Right (Active) Wound Image 10/04/231406 Site Assessment Painful;Pale;[place];Sloughing 10/04/231406 Carine-Wound Assessment Macerated 10/04/231406 Wound Length (cm) 1.5 cm 10/04/231406 Wound Width (cm) 1.5 cm 10/04/231406 Wound Surface Area (cm^2) 2.25 cm^2 10/04/231406 Wound Depth (cm) 0.2 cm 10/04/237 Wound Volume (cm^3) 0.45 cm^3 10/04/23 1407 Wound Healing % -13 10/04/23 140 Drainage Description Serosanguineous;Pastrana 10/04/23 140 Odor None 10/04/231406 Drainage Amount Moderate 10/04/231406 Treatments Cleansed 10/04/231406 Primary Dressing Collagen Ag;Calcium alginate 10/04/231406 Secondary Dressing 4x4 gauze 10/04/231406 Secured with Kerlex;Paper tape 10/04/231406 Compression Unna boot;Multilayer compression wrap - 3 layers 10/04/231406 Dressing Status New dressing;Clean, dry & intact 10/04/23 1407 Wound/Incision 08/23/23 Venous Ulcer Toe - third Right (Active) Wound Image 10/04/23 141 Site Assessment Terlton;Pale 10/04/23 141 Carine-Wound Assessment Macerated 10/04/23 141 Wound Length (cm) 0.5 cm 10/04/23 141 Wound Width (cm) 0.3 cm 10/04/23 141 Wound Surface Area (cm^2) 0.15 cm^2 10/04/23 1410 Wound Depth (cm) 0.2 cm 10/04/23 141 Wound Volume (cm^3) 0.03 cm^3 10/04/23 141 Wound Healing % 76 10/04/23 141 Drainage Description Serosanguineous;Pastrana 10/04/23 141 Odor None 10/04/231409 Drainage Amount Moderate 10/04/23 141 Treatments Cleansed 10/04/23 141 Primary Dressing Calcium alginate;Collagen Ag 10/04/23 141 Secondary Dressing 4x4 gauze 10/04/23 141 Secured with Kerlex;Paper tape 10/04/23 141 Compression [...] provider verified the correct patient, procedure, equipment, passport support associate, and site/side marked as required. Debridement Details [...] provider verified the correct patient, procedure, equipment, passport support associate, and site/side marked as required. Debridement Details Performed by: physician Debridement type: surgical Level of debridement: subcutaneous tissue Pain control: lidocaine 2% Pain control administration type: topical Pre-debridem (more content not included)... [facility] 09-27-2023 History of Present illness Narrative Images from the original note were not included. [facility] Wound Care Progress Note CHIEF COMPLAINT: Wound [...] (Active) Wound Image 09/27/23 132 Site Assessment Maceration;Pale;[place];Sloughing;Yesenia nful 09/27/23 132 Carine-Wound Assessment Macerated 09/27/23 1322 Wound Length (cm) 1.9 cm 09/27/23 1322 Wound Width (cm) 0.8 cm 09/27/23 132 Wound Surface Area (cm^2) 1.52 cm^2 09/27/23 1322 Wound Depth (cm) 0.2 cm 09/27/23 132 Wound Volume (cm^3) 0.304 cm^3 09/27/23 132 Wound Healing % 24 09/27/23 132 Drainage Description Serosanguineous;Pastrana 09/27/23 1322 Odor None 09/27/23 132 Drainage Amount Moderate 09/27/23 1322 Treatments Cleansed 09/27/23 132 Primary Dressing Calcium alginate;Collagen Ag 09/27/23 132 Secondary Dressing 4x4 gauze 09/27/23 132 Secured with Kerlex;Paper tape 09/06/23 1356 Compression Multilayer compression wrap - 3 layers;Unna boot 09/27/23 132 Dressing Status New dressing;Clean, dry & intact 09/27/23 132 Wound/Incision 08/23/23 Venous Ulcer Toe - third Right (Active) Wound Image 09/27/23 1320 Site Assessment Terlton;Pale 09/27/23 132 Carine-Wound Assessment Macerated 09/27/23 1320 [...] attached Discharge Instructions documented in this encounter [facility] 09-27-2023 Hospital Discharge instructions Erika Prietotingham - 09/27/2023 1:15 PM EDT Return Appointment in: 1 week - Should you experience any significant changes in your wound(s) or have any questions regarding your home care instructions please contact the wound center at [phone] If after regular business hours, please call [...] help with wound healing Nursing Care Facility: [facility] Wound Treatment: Wound: right toes Dressing Frequency: Keep dressing in place all week Wound Cleansing: May shower with protection - Protect wound and dressing with water repellant cover/cast cover (e.g., large plastic bag) which can be obtained at [facility] and may take shower. Primary Dressing: Collagen Ag 2x2 Secondary Dressing: Calcium Alginate 4x4 Secure With: Kerlex Roll gauze 4, Silk Tape 1 Compression: Unna boot & multilayer compression wrap - 3 layers (cover toes) documented in this encounter [facility] 09-27-2023 Hospital Discharge instructions Erika Cruz - 09/27/2023 1:15 PM EDT Return Appointment in: 1 week - Should you experience any significant changes in your wound(s) or have any questions regarding your home care instructions please contact the wound center at [phone] If after regular business hours, please call [...] help with wound healing Nursing Care Facility: [facility] Wound Treatment: Wound: right toes Dressing Frequency: Keep dressing in place all week Wound Cleansing: May shower with protection - Protect wound and dressing with water repellant cover/cast cover (e.g., large plastic bag) which can be obtained at [facility] and may take shower. Primary Dressing: Collagen Ag 2x2 Secondary Dressing: Calcium Alginate 4x4 Secure With: Kerlex Roll gauze 4, Silk Tape 1 Compression: Unna boot & multilayer compression wrap - 3 layers (cover toes) documented in this encounter [facility] 09-27-2023 Miscellaneous Notes Encounter addended by: Marycarmen Corona RN on: 10/05/2023 3:58 PM Actions taken: Charge Capture section accepted documented in this encounter [facility] 09-27-2023 Note Encounter addended b y: Marycarmen Corona RN on: 10/05/2023 3:58 PM Actions taken: Charge Capture section accepted [facility] 09-27-2023 Note Encounter addended b y: Marycarmen Corona RN on: 10/05/2023 3:58 PM Actions taken: Charge Capture section accepted [facility] 09-27-2023 Note [facility] Wound Care Progress Note CHIEF COMPLAINT: Wound [...] (Active) Wound Image 09/27/23 1322 Site Assessment Maceration;Pale;[place];Sloughing;Yesenia nful 09/27/23 1322 Carine-Wound Assessment Macerated 09/27/23 [...] (Active) Wound Image 09/27/23 132 Site Assessment Terl[place];Pale 09/27/23 1320 Carine-Wound Assessment Macerated 09/27/23 1320 Wound Length (cm) 0.5 cm 09/27/23 1320 Wound Width (cm) 0.3 cm 09/27/23 132 Wound Surface Area (cm^2) 0.15 cm^2 09/27/23 1320 Wound Depth (cm) 0.2 cm 09/27/23 132 Wound Volume (cm^3) 0.03 cm^3 09/27/23 1320 [...] Unna boot Please see attached Discharge Instructions [facility] 09-20-2023 History of Present illness Narrative Images from the original note were not included. [facility] Wound Care Progress Note CHIEF COMPLAINT: Wound [...] Toe- second Right (Active) Wound Image 09/20/23 0567 Site Assessment Maceration;Pale;[place];Sloughing 09/20/23 144 Carine-Wound Assessment Macerated 09/20/23 1447 Wound Length (cm) 1.9 cm 09/20/23 144 Wound Width (cm) 2.2 cm 09/20/23 144 Wound Surface Area (cm^2) 4.18 cm^2 09/20/23 144 Wound Depth (cm) 0.2 cm 09/20/231446 Wound Volume (cm^3) 0.836 cm^3 09/20/23 144 Wound Healing % -109 09/20/231446 Drainage Description Serosanguineous;Pastrana 09/20/23 1447 Odor None 09/20/231446 Drainage Amount Moderate 09/20/231446 Treatments Cleansed 09/20/231446 Primary Dressing Calcium alginate;Collagen Ag 09/06/23 135 Secondary Dressing 4x4 gauze;Sorbex 09/06/23 135 Secured with Kerlex;Paper tape 09/06/23 135 Compression Multilayer compression wrap - 3 layers;Unna boot 09/06/23 135 Dressing Status New dressing;Clean, dry & intact 09/06/23 135 Wound/Incision 08/23/23 Venous Ulcer Toe - third Right (Active) Wound Image 09/20/231444 Site Assessment Pale;[place];Maceration 09/20/231444 Carine-Wound Assessment Maceration 09/20/231444 Wound Length (cm) 0.7 cm 09/20/23 144 Wound Width (cm) 0.5 cm 09/20/23 144 Wound Surface Area (cm^2) 0.35 cm^2 09/20/23 144 Wound Depth (cm) 0.2 cm 09/20/23 144 Wound Volume (cm^3) 0.07 cm^3 09/20/23 144 Wound Healing % 44 09/20/231444 Drainage Description Serosanguineous;Pastrana 09/20/23 1445 Odor None 09/20/231444 Drainage Amount Moderate 09/20/23 144 Treatments Cleansed 09/20/23 144 Primary Dressing Calcium alginate;Collagen Ag 09/06/23 135 Secondary Dressing 4x4 gauze;Sorbex 09/06/23 1354 Secured [...] attached Discharge Instructions documented in this encounter [facility] 09-20-2023 Hospital Discharge instructions Marycarmen Corona RN - 09/20/2023 2:15 PM EDT Return Appointment in: 1 week - Should you experience any significant changes in your wound(s) or have any questions regarding your home care instructions please contact the wound center at [phone] If after regular business hours, please call [...] help with wound healing Nursing Care Facility: [facility] Wound Treatment: Wound: right toes Dressing Frequency: Keep dressing in place all week Wound Cleansing: May shower with protection - Protect wound and dressing with water repellant cover/cast cover (e.g., large plastic bag) which can be obtained at [facility] and may take shower. Primary Dressing: Collagen Ag 2x2 Secondary Dressing: Calcium Alginate 4x4 Secure With: Kerlex Roll gauze 4, Silk Tape 1 Compression: Unna boot & multilayer compression wrap - 3 layers (cover toes) documented in this encounter [facility] 09-20-2023 Note [facility] Wound Care Progress Note CHIEF COMPLAINT: Wound [...] (Active) Wound Image 09/20/23 144 Site Assessment Maceration;Pale;[place];Sloughing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 [phone] office Seen and examined. Agree with above [...] Dysphagia - Pureed; 1500 ml; Mildly Thick ([place]); Low Fat (less than or equal to [...] (traumatic brain injury) LABS: CBC: Recent Labs 06/19/2230006/20/22 0616 06/21/22 0513 WBC 19.0* 17.8* 16.2* [...] 3 0* LIVER PROFILE: Recent Labs 06/19/22 03006/20/22 0616 06/21/22 0513 AST 43 43 56* [...] mL, 3 mL, Nebulization, 4x daily PRN, eLobardo Akbar MD, 3 mL at 06/16/22 0110 lidocaine (Uro-Jet) 2 % gel, , Urethral, PRN, Mani Vogt, DO melatonin tablet 10 mg, 10 mg, Oral, Nightly, SIMIN Frausto CNP, 10 mg at 06/20/222046 melatonin tablet 6 mg, 6 mg, Oral, Nightly PRN, Brenda Hagan, 6 mg at 06/11/222117 memantine (Namenda) tablet 10 mg, 10 mg, [...] 2 tablet, 2 tablet, Oral, Daily, Mani Edgar DO, 2 tablet at 06/21/22 0852 stomahesive in petrolatum (ET Mix), , Topical, PRN, SIMIN Maddox CNP, Given at 06/18/222122 venlafaxine (Effexor) tablet 75 mg, 75 mg, Oral, BID, SIMIN Frausto CNP, 75 mg at 06/21/22 0852 Assessment Data: [...] MD Division of Hospitalist Medicine Inpatient Medical Services/[facility] Cardiology Progress Note Patient Name: Moises Madrid Patient Age: 61 y.o. Date: 06/21/2022 Alert, comfortable stable SUBJECTIVE: pt. In isolation Sob.c/o abd. Pain. No cp. PANCREATITIS. CHOLECYSTITIS. RENAL STONE, Stress . >> nl.. ef=65 % Leucocytosis.>>20. Blood mbark=869 mg. Gi consult reviewed. More alert. No [...] : GIB No Renal : CKD No POLLUTION CONTROL ENGINEER : CVA/TIA No Musculoskeletal system : DJD [...] QT Interval 352 QTC Interval 479 P Thornton 43 QRS Thornton -36 T Wave Thornton 60 KS Interval 160 Impression SINUS TACHYCARDIA LEFT AXIS DEVIATION LATE PRECORDIAL R/S TRANSITION LEFT VENTRICULAR HYPERTROPHY Electronically Signed On 3-3-2023 9:55:05 EST by Dimple Wade Echo: Transthoracic [...] RENAL STONE, HYPONATREMIA, NA-=129. > RESTRICT FLUIDS. Ci=510. Cr0.88/22. na >>low= 126. SLOWLY IMPROVING. LESS ABD. PAIN. TOLERATING FOOD. PLAN : Chest pain>>>Stress test normal., ef=65 %NO CP TODAY, CP DUE TO PANCREATITIS. Noncardiac cp. CARDIAC STATUS IS STABLE. Essential hypertension, benign>>>Meds Hyperlipidemia>>Meds>>Meds Troponin=0.012. ekg no change, Dr. Dickerson and advise changing Zosyn to Ertapenem therapy on 06/14. However, patient vital signs change becoming more tachycardic, tachypneic and febrile zt=401.>>111. BP= 143/85 MMHG. Ef=65 %. Pt/ot. SHELTON HERMAN M.D., [facility] 06/21/2022 Images from the original note were not included. [facility] Wound Care Progress Note Moises Madrid AGE: [...] History: Diagnosis Date Anxiety Ataxia Bipolar disorder (FORMERLY [facility]) Chronic pain Constipation Contracture, right hand Depression Dysphagia Dysphagia Dysphonia Edema GERD (gastroesophageal reflux disease) Headache Hemiplegia (CMS/HCC) (FORMERLY [facility]) Hyperlipidemia Hypertension Insomnia Muscle weakness Neuropathy TBI [...] mouth Nightly. cholecalciferol (Vitamin D3) 1.25 MG (40403 UT) tablet Take by mouth 1 (one) [...] Do not crush, chew, or split. HYDROcodone-acetaminophen ([place]more) 5-325 MG tablet Take 1 tablet by [...] Apply topically if needed for dry skin. Sartell-3 Fatty Acids (Fish Oil) 1000 MG capsule [...] miconazole powder BID Please follow up at [facility] after hospital discharge. I personally obtained [...] my own independent evaluation of this patient. [facility] - Infectious Diseases Attending Progress Note [...] 113 kg (248 lb 3.8 oz) 06/21/22 040 (!) 127/90 36.7 C (98 F) Oral 100 20 94 % -- 06/21/22 0002 130/89 36.9 C (98.5 F) Oral 105 19 92 % -- 06/20/222001 (!) 144/95 36.9 C (98.4 F) Oral 110 25 92 % -- 06/20/22 175 (!) 140/92 36.1 C (97 F) Oral [...] 06/21/2022512 CO2 33 (H) 06/21/2022512 BUN 19 06/21/2022512 CREATININE 0.74 06/21/2022 05 CREATININE 0.97 02/19/20202057 GLUCOSE 252 (H) 06/21/2022512 CALCIUM 8.0 (L) 06/21/2022 05 PROT 6.5 06/21/2022512 BILITOT 0.7 06/21/2022512 ALKPHOS 78 06/21/2022512 AST 56 (H) 06/21/2022512 ALT 30 06/21/2022512 PROCAL 0.46 (H) 06/16/20228 PROCAL 0.47 (H) 06/14/2022225 PROCAL 0.06 06/10/2022228 Lab Results Component Value Date/Time WBC 16.2 (H) 06/21/2022 0513 HGB 12.4 (L) 06/21/2022 0513 HCT 36.1 (L) 06/21/2022 0513 PLT 401 06/21/2022 0513 LYMPHOPCT 20 06/21/2022 0513 LYMPHOPCT 17.9 (L) [...] of pancreatitis in this ECF patient from [facility]. H/o EtOH use. 2 No [...] opportunity to participate in this patient's care. [facility] - Surgery [facility] Physicians Surgery Patient Name: Moises [...] intact Data: CBC: Recent Labs 06/19/2230006/20/2216 06/21/22 05 WBC 19.0* 17.8* 16.2* HGB 13.0 13.2 12.4* HCT 38.2* 38.9* 36.1* PLT 325 389 401 BMP: Recent Labs 06/19/2230006/20/2216 06/21/22 0513 NA 126* 126* 126* K 3.9 3.8 4.0 CL 90* 90* 93* CO2 34* 33* 33* BUN 24* 22* 19 CREATININE 0.85 0.81 0.74 GLUCOSE 250* 241* 252* Hepatic: Recent Labs 06/19/2230006/20/2216 06/21/22 0513 AST 43 43 56* ALT [...] Adult diet Dysphagia - Pureed; Mildly Thick ([place]); Low Fat (less than or equal to [...] (traumatic brain injury) LABS: CBC: Recent Labs 06/18/2231606/19/22 03006/20/22 0616 WBC 20.7* 19.0* 17.8* RBC 4.39* 4.26* 4.33* HGB 13.3 13.0 13.2 HCT 39.5* 38.2* 38.9* MCV 90.0 89.6 90.0 RDW 13.6 13.9 13.7 PLT 304 325 389 BMP: Recent Labs 06/18/2231606/19/22 0301 06/20/22 0616 NA 129* 126* 126* K 3.8 3.9 3.8 CL 93* 90* 90* CO2 35* 34* 33* BUN 22* 24* 22* CREATININE 0.88 0.85 0.81 GLUCOSE 195* 250* 241* CALCIUM 8.3* 7.9* 8.2* ANIONGAP 2* 1* 3 LIVER PROFILE: Recent Labs 06/18/22 0317 06/19/22 0301 06/20/22 0616 AST 40 43 43 ALT 28 [...] mg, Oral, q6h PRN, 650 mg at 06/20/2224 OR acetaminophen (Tylenol) suppository 650 mg, 650 mg, Rectal, q6h PRN, Brenda Hagan ARIPiprazole (Abilify) tablet 5 mg, 5 mg, Oral, Daily, SIMIN Frausto CNP, 5 mg at 06/20/22827 aspirin chewable tablet 81 mg, 81 mg, Oral, Daily, Brenda Hagan, 81 mg at 06/20/22827 bisacodyl (Dulcolax) suppository 10 mg, 10 mg, Rectal, Daily PRN, Mani Edgar DO dextrose 5 % infusion, 100 mL/hr, IntraVENous, PRN, Jennie Castelan PA-C dextrose 50 % solution 12.5 g, 12.5 g, IntraVENous, PRN, Jennie Castelan PA-C divalproex sprinkle (Depakote Sprinkle) DR capsule 250 mg, 250 mg, Oral, 2 times per day, SIMIN Frausto CNP, 250 mg at 06/20/22827 enoxaparin (Lovenox) syringe 40 mg, 40 mg, SubCUTAneous, Daily, Brenda Hagan, 40 mg at 06/20/22827 glucagon (human recombinant) injection 1 mg, 1 mg, IntraMUSCular, PRN, Jennie Castelan PA-C glucose oral gel 15 g, 15 g, Oral, PRN, Jennie Castelan PA-C guaiFENesin (Mucinex) 12 hr tablet 600 mg, 600 mg, Oral, BID, Shreya Cast MD, 600 mg at 06/20/22827 influenza vaccine split quadravalent (Flulaval,Fluzone,Fluarix,Afluria) syringe 0.5 mL, 0.5 mL, IntraMUSCular, Once, Brenda Hagan ipratropium-albuterol (Duo-Neb) 0.5-2.5 mg/3 mL nebulizer solution 3 mL, 3 mL, Nebulization, 4x daily PRN, Narsia Ronald Akbar MD, 3 mL at 06/16/22 0110 [...] 2 tablet, 2 tablet, Oral, Daily, Mani Edgar DO, 2 tablet at 06/20/22 0828 sodium chloride tablet 3 g, 3 g, Oral, TID WC, Mainor Kim MD, 3 g at 06/20/22 1243 stomahesive in petrolatum (ET Mix), , Topical, PRN, SIMIN Maddox CNP, Given at 06/18/222122 torsemide (Demadex) tablet 10 mg, 10 mg, Oral, BID, Mainor Kim MD, 10 mg at 06/20/22827 venlafaxine (Effexor) tablet 75 mg, 75 mg, Oral, BID, Ira Marin APRN - HOTEL DESK CLERK, 75 mg at 06/20/22 0828 Assessment Data: [...] MD Division of Hospitalist Medicine Inpatient Medical Services/[facility] - Infectious Diseases Attending Progress Note [...] of pancreatitis in this ECF patient from [facility]. 2 No evidence of active infection [...] per Primary team. Will follow peripherally. .. [place] [facility] Progress Note Subjective/ 61 y.o. [...] Lying Pulse: 104 100 100 103 Resp: 21 16 16 23 Temp: 37.9 C (100.2 F) TempSrc: [...] any questions or concerns. Brenda Blanco APRN, HOTEL DESK CLERK [place] [place] [phone] office Seen and examined. Agree with above A and p. Need nausea control and more protein intake PO to address hyponatremia. Speech-Language Pathology Facility/Department: [facility] DYSPHAGIA TREATMENT NAME: Moises Madrid : [...] Adult diet Dysphagia - Pureed; Mildly Thick ([place]); Low Fat (less than or equal to 50 gm/day) Diet effective now Question Answer Comment Diet type Dysphagia - Pureed Fluid consistency Mildly Thick ([place]) GI restriction: Low Fat (less than or [...] (Dysphagia I) Liquid Consistency Recommendation: Mildly Thick ([place]) Recommended Form of Meds: Crushed in puree [...] and moist for advancement. Treatment Plan Requires DICER MACHINE OPERATOR Intervention: Yes Frequency/Duration: Frequency of Treatment: 3 days/wk for Duration of Treatment: 2 weeks Therapy Time DICER MACHINE OPERATOR Individual Minutes Time In: 1231 Time Out: 1258 Minutes: 27 ALISHA Canchola 06/20/2022 1:24 PM Occupational Therapy Facility/Department: [facility] Occupational Therapy Treatment NAME: Moises Madrid : 1960 Date of Service: 06/20/2022 Discharge Recommendations: Subacute/Nursing Home Facility Assessment Performance deficits / Impairments: Decreased [...] of right foot with fat layer exposed ([facility]) were also pertinent to this visit. has [...] Daily Activity Raw Score: 10 ADL Inpatient [facility] G-Code Modifier: CL Goals Encounter Problems Encounter [...] Act) GRANT Workman Physical Therapy Facility/Department: [facility] Physical Therapy Daily Treatment Note NAME: Moises Madrid : 1960 Date of Service: 06/20/2022 Discharge Recommendations: Subacute/Nursing Home Facility PT Equipment Recommendations Equipment Needed: (TBD [...] Minutes (1 ther act) Angle Ignacio P[facility] - Surgery [facility] Physicians Surgery Patient Name: Moises [...] chart review was performed. Remigio Napier MD [facility] General Surgery 3:21 PM 06/20/2022 [...] dry, and intact Data: CBC: Recent Labs 06/18/22 0317 06/19/22 0301 06/20/22 0616 WBC 20.7* 19.0* 17.8* HGB 13.3 13.0 13.2 HCT 39.5* 38.2* 38.9* PLT 304 325 389 BMP: Recent Labs 06/18/2231606/19/22 0301 06/20/22 0616 NA 129* 126* 126* K 3.8 3.9 3.8 CL 93* 90* 90* CO2 35* 34* 33* BUN 22* 24* 22* CREATININE 0.88 0.85 0.81 GLUCOSE 195* 250* 241* Hepatic: Recent Labs 06/18/2231606/19/22 0301 06/20/22 0616 AST 40 43 43 ALT 28 [...] proceed with plan. Raimundo Riley, SIMIN - HOTEL DESK CLERK Cardiology Progress Note Patient Name: Moises Madrid Patient Age: 61 y.o. Date: 06/20/2022 Alert, comfortable stable SUBJECTIVE: pt. In isolation Sob.c/o abd. Pain. No cp. PANCREATITIS. CHOLECYSTITIS. RENAL STONE, Stress . >> nl.. ef=65 % Leucocytosis.>>20. Blood vbflj=613 mg. Gi consult reviewed. More alert. No [...] : GIB No Renal : CKD No POLLUTION CONTROL ENGINEER : CVA/TIA No Musculoskeletal system : DJD [...] QT Interval 352 QTC Interval 479 P Thornton 43 QRS Thornton -36 T Wave Thornton 60 [place] Interval 160 Impression SINUS TACHYCARDIA LEFT AXIS [...] RENAL STONE, HYPONATREMIA, NA-=129. > RESTRICT FLUIDS. Xo=966. Cr0.88/22. na >>low= 126. PLAN : Chest pain>>>Stress test normal., ef=65 %NO CP TODAY, CP DUE TO PANCREATITIS. Noncardiac cp. CARDIAC STATUS IS STABLE. Essential hypertension, benign>>>Meds Hyperlipidemia>>Meds>>Meds Troponin=0.012. ekg no change, Dr. Dickerson and advise changing Zosyn to Ertapenem therapy on 06/14. However, patient vital signs change becoming more tachycardic, tachypneic and febrile de=934.>>111. BP= 143/85 MMHG. Ef=65 %. Pt/ot. SHELTON HERMAN M.D., FACC 06/20/2022 Images from the original note were not included. [facility] - Infectious Diseases Attending Progress Note [...] of pancreatitis in this ECF patient from [facility]. 2 No evidence of active infection [...] . >> nl.. ef=65 % Leucocytosis.>>20. Blood bqepy=977 mg. Gi consult reviewed. Very lethargic & [...] : GIB No Renal : CKD No POLLUTION CONTROL ENGINEER : CVA/TIA No Musculoskeletal system : DJD [...] QT Interval 352 QTC Interval 479 P Thornton 43 QRS Thornton -36 T Wave Thornton 60 [place] Interval 160 Impression SINUS TACHYCARDIA LEFT AXIS [...] RENAL STONE, HYPONATREMIA, NA-=129. > RESTRICT FLUIDS. Aq=187. Cr0.88/22. PLAN : Chest pain>>>Stress test normal., ef=65 %NO CP TODAY, CP DUE TO PANCREATITIS. Noncardiac cp. CARDIAC STATUS IS STABLE. Essential hypertension, benign>>>Meds Hyperlipidemia>>Meds>>Meds Troponin=0.012. ekg no change, Dr. Dickerson and advise changing Zosyn to Ertapenem therapy on 06/14. However, patient vital signs change becoming more tachycardic, tachypneic and febrile tu=056.>>111. BP= 143/85 MMHG. SHELTON HERMAN M.D., FACC 06/19/2022 .. [facility] Subjective/ [...] Results from last 7 days Lab Units 06/19/2230006/18/2231606/17/22437 SODIUM mmol/L 126* 129* 130* POTASSIUM mmol/L [...] were not included. Hospitalist Progress Note 06/19/2022 [phone]: Please page me ([phone]) for patient care issues. [phone]: Please page [facility] Hospitalist for any issues. Subjective: Admit Date: 06/07/2022 PCP: Demetrius Fenton Room#: 232-06/232-06 A Interval History: No overnight events. Feels better this am. Ao x 3. Breathing non-labored and remains on 2 L NC. Denies chest pain, nausea, vomiting, abdominal pain, diarrhea or constipation. Adult diet Dysphagia - Pureed; Mildly Thick ([place]); Low Fat (less than or equal to 50 gm/day) @[id number]@ 24HR INTAKE/OUTPUT: Intake/Output Summary (Last 24 hours) [...] 264 304 325 BMP: Recent Labs 06/17/2243706/18/2231606/19/22 030 NA 130* 129* 126* K 3.7 3.8 [...] (last 21 days) XR chest 1 view [[id number]] Collected: 06/16/22427 Order Status: Completed Updated: 06/16/22516 Narrative: Patient Name: MOISES MADRID : 1960 [facility]#: [id number] Exam Date/Time: 06/16/2022 05:16 Procedure: XR CHEST [...] 4:29 AM EST XR chest 1 view [[id number]] Collected: 06/15/221131 Order Status: Completed Updated: 03/08/23 1134 Narrative: Patient Name: MOISES MADRID : 1960 [...] Units Date/Time CT abdomen pelvis w contrast [[id number]] Collected: 06/13/222204 Order Status: Completed Updated: 06/13/222220 [...] 06/13/2022 10:20 PM EST US abdomen limited [[id number]] Collected: 06/13/22823 Order Status: Completed Updated: 06/13/22829 [...] negative sonographic Cole's sign reported by the environmental health technologist. Pancreas: Obscured by bowel gas. Right [...] 8:29 AM EST XR chest 1 view [[id number]] Collected: 06/12/22 1254 Order Status: Completed Updated: 06/12/22 1257 Narrative: [facility] 1960 [id number] Exam Date/Time: 06/12/2022 12:43 Procedure: XR CHEST [...] PM EST XR foot 3+ views right [[id number]] Collected: 06/12/22 1250 Order Status: Completed Updated: [...] EST CT guided abscess fluid collection drainage [[id number]] Collected: 06/10/22 1607 Order Status: Completed Updated: 06/10/22 1610 Narrative: Patient Name: MOISES MADRID : 1960 Exam Date/Time: 06/10/2022 14:50 Procedure: CT GUIDED ABSCESS FLUID COLLECTION DRAINAGE Ordering Provider: EDGAR JONATHAN Reason For Exam: PROCEDURE: Drainage catheter placement Procedural Personnel Attending physician(s): Jus Barlow Indication: Peripancreatic fluid collection Additional clinical history: None Complications: No immediate complications. Impression: Percutaneous placement of a 10 [place] drainage catheter into peripancreatic fluid collection, yielding [...] fluid collection - Drainage catheter placed: 10 [place] APD - External catheter securement: Non-absorbable suture [...] EST CT abdomen pelvis wo IV contrast [[id number]] Collected: 06/10/22914 Order Status: Completed Updated: 06/10/22930 [...] 9:30 AM EST XR chest 1 view [[id number]] Collected: 06/10/22843 Order Status: Completed Updated: 06/10/22850 [...] 8:50 AM EST XR chest 1 view [[id number]] Collected: 06/07/222325 Order Status: Completed Updated: 06/07/222327 [...] disorder Medical Decision Making -Patient presents to [facility] ED from SNF on 06/08 with [...] MD Division of Hospitalist Medicine Inpatient Medical Services/[facility] PAGER: Epic chat Images from the original note were not included. [facility] - Infectious Diseases Attending Progress Note KOI: 61 y/o s/p remote CVA and hemiplegia presented from [facility] on 06/07/22 with acute substernal CP and [...] circulation of both feet Labs: Recent Labs 06/16/22 0318 06/17/22 0438 06/18/22 0317 NA 132* 130* 129* K 4.0 3.7 3.8 CL 95* 95* 93* CO2 32* 33* 35* BUN 16 19 22* CREATININE 0.80 0.82 0.88 GLUCOSE 173* 181* 195* CALCIUM 8.1* 8.0* 8.3* PROT 6.2* 6.5 6.9 BILITOT 0.7 0.6 0.7 ALKPHOS 114 117 118 AST 36 35 40 ALT 25 23 28 PROCAL 0.46* -- -- Recent Labs 06/16/22 0318 06/17/22 0438 06/18/22 0317 WBC 19.9* 19.8* 20.7* HGB 12.6* 12.6* [...] . >> nl.. ef=65 % Leucocytosis.>>20. Blood hlhgg=482 mg. Gi consult reviewed. Very lethargic & [...] : GIB No Renal : CKD No POLLUTION CONTROL ENGINEER : CVA/TIA No Musculoskeletal system : DJD [...] QT Interval 352 QTC Interval 479 P Thornton 43 QRS Thornton -36 T Wave Thornton 60 [place] Interval 160 Impression SINUS TACHYCARDIA LEFT AXIS [...] RENAL STONE, HYPONATREMIA, NA-=129. > RESTRICT FLUIDS. Tw=847. Cr0.88/22. PLAN : Chest pain>>>Stress test normal., ef=65 %NO CP TODAY, Noncardiac cp. CARDIAC STATUS IS STABLE. Essential hypertension, benign>>>Meds Hyperlipidemia>>Meds>>Meds Troponin=0.012. ekg no change, Dr. Dickerson and advise changing Zosyn to Ertapenem therapy on 06/14. However, patient vital signs change becoming more tachycardic, tachypneic and febrile lh=307. SHELTON HERMAN M.D., FACC 06/18/2022 Images from the original note were not included. Hospitalist Progress Note 06/18/2022 [phone]: Please page me ([phone]) for patient care issues. [phone]: Please page [facility] Hospitalist for any issues. Subjective: Admit Date: 06/07/2022 PCP: Demetrius Fenton Room#: 232-06/232-06 A Interval History: No overnight events. Patient AO x 3 this am. Feels much better. Tolerated breakfast. States that he feels improved. Remains tachycardic and on 4 L NC. Denies chest pain, nausea, vomiting, abdominal pain, diarrhea or constipation. Adult diet Dysphagia - Pureed; Mildly Thick ([place]); Low Fat (less than or equal to 50 gm/day) @[id number]@ 24HR INTAKE/OUTPUT: Intake/Output Summary (Last 24 hours) [...] (traumatic brain injury) LABS: CBC: Recent Labs 06/16/2231706/17/2243706/18/22316 WBC 19.9* 19.8* 20.7* RBC 4.11* 4.18* [...] 5 2* 2* LIVER PROFILE: Recent Labs 06/16/22 0318 06/17/22 0438 06/18/22 0317 AST 36 35 40 ALT 25 23 [...] (last 21 days) XR chest 1 view [[id number]] Collected: 06/16/228 Order Status: Completed Updated: 06/16/22516 Narrative: Patient [...] 4:29 AM EST XR chest 1 view [[id number]] Collected: 06/15/22 1132 Order Status: Completed Updated: 06/15/22 113 Narrative: Patient Name: MOISES MADRID : 1960 [...] Units Date/Time CT abdomen pelvis w contrast [[id number]] Collected: 06/13/222204 Order Status: Completed Updated: 06/13/222220 Narrative: Patient Name: MOISES MADRID : 1960 [facility]#: [id number] Exam Date/Time: 06/13/2022 17:39 Procedure: CT ABDOMEN [...] 06/13/2022 10:20 PM EST US abdomen limited [[id number]] Collected: 06/13/22 0824 Order Status: Completed Updated: [...] negative sonographic Cole's sign reported by the environmental health technologist. Pancreas: Obscured by bowel gas. Right [...] 8:29 AM EST XR chest 1 view [[id number]] Collected: 06/12/22 1254 Order Status: Completed Updated: [...] PM EST XR foot 3+ views right [[id number]] Collected: 06/12/22 125 Order Status: Completed Updated: 06/12/22 125 Narrative: [facility]IS[facility]ADRID [facility] 1960 [id number] Exam Date/Time: 06/12/2022 12:44 Procedure: XR FOOT [...] EST CT guided abscess fluid collection drainage [[id number]] Collected: 06/10/22 160 Order Status: Completed Updated: 06/10/22 161 Narrative: [facility]: MOISES MADRID [facility] 1960 [id number] Exam Date/Time: 06/10/2022 14:50 Procedure: CT GUIDED ABSCESS FLUID COLLECTION DRAINAGE Ordering Provider: EDGAR JONATHAN Reason For Exam: PROCEDURE: Drainage catheter placement Procedural Personnel Attending physician(s): Jus Barlow Indication: Peripancreatic fluid collection Additional clinical history: None Complications: No immediate complications. Impression: Percutaneous placement of a 10 [place] drainage catheter into peripancreatic fluid collection, yielding [...] fluid collection - Drainage catheter placed: 10 [place] APD - External catheter securement: Non-absorbable suture [...] EST CT abdomen pelvis wo IV contrast [[id number]] Collected: 06/10/22914 Order Status: Completed Updated: 06/10/22930 [...] 9:30 AM EST XR chest 1 view [[id number]] Collected: 06/10/22843 Order Status: Completed Updated: 06/10/22850 Narrative: [facility] Name: MOISES MADRID [facility] 1960 [id number] Exam Date/Time: 06/10/2022 08:36 Procedure: XR CHEST [...] 8:50 AM EST XR chest 1 view [[id number]] Collected: 06/07/222325 Order Status: Completed Updated: 06/07/222327 Narrative: Patient Name: MOISES MADRID : 1960 [facility]#: [id number] Exam Date/Time: 06/07/2022 23:25 Procedure: XR CHEST [...] disorder Medical Decision Making -Patient presents to [facility] ED from SNF on 06/08 with [...] Extended Emergency Contact Information Primary Emergency Contact: GunjanJoslyn Relation: Other Asia Nelson MD Division of Hospitalist Medicine Inpatient Medical Services/[facility] PAGER: Epic chat .. [facility] Progress Note [...] Results from last 7 days Lab Units 06/18/22 0317 06/17/22 0438 06/16/22 0318 SODIUM mmol/L 129* 130* 132* POTASSIUM mmol/L 3.8 3.7 4.0 CHLORIDE mmol/L 93* 95* 95* CO2 mmol/L 35* 33* 32* BUN mg/dL 22* 19 16 CREATININE mg/dL 0.88 0.82 0.80 GLUCOSE mg/dL 195* 181* 173* CALCIUM mg/dL 8.3* 8.0* 8.1* Results from last 7 days Lab Units 06/18/227 06/17/22 0438 06/16/22 0318 WBC AUTO 10*3/uL 20.7* 19.8* 19.9* HEMOGLOBIN [...] from the original note were not included. [facility] Wound Care Progress Note Moises Madrid AGE: [...] mouth Nightly. cholecalciferol (Vitamin D3) 1.25 MG (07329 UT) tablet Take by mouth 1 (one) [...] Do not crush, chew, or split. HYDROcodone-acetaminophen ([place]) 5-325 MG tablet Take 1 tablet by [...] Apply topically if needed for dry skin. Sart[place]-3 Fatty Acids (Fish Oil) 1000 MG capsule [...] miconazole powder BID Please follow up at [facility] after hospital discharge. I personally obtained [...] Unable to assess Fluid Accumulation: Mild Generalized Merchandise Manager Strength: Measurable reduction in transportation department supervisor strength Nutrition Assessment: per MD-Interval History: More alert this am. AO x 3 on exam. Feels slightly better but remains acutely ill. Adult diet Dysphagia - Pureed; Moderately Thick ([place]); Low Fat (less than or equal to 50 gm/day). per MD-1. SIRS 2. Acute pancreatitis with peripancreatic abscess s/p percutaneous drain (06/10) 3. Acute hypoxic respiratory insufficiency 2/2 coronavirus [...] On: Kcal/kg Weight Used for Energy Requirements: Cascade Weight for Energy Calculation (kg): 86 kg Total Energy Requirements (kcals/day): 25--30 or 3840-8514 Weight Used for Protein Requirements: [place] Weight in Kg Used for Protein Requirements: 86 kg Estimated Total Protein (g/day): 1.0-1.2 or 86-103 Estimated Daily Total Fluid (ml/day): or per md Nutrition Related Findings: weak transportation department supervisor ,altered mental status,+2 bl;trace upper ,generalized edema-variable po, na 130, glu 181,lipase 1078,alb 3.1,nh3- 13-wounds improved, 3/6 bm Wound Type: Multiple, Deep Tissue Injury, Stage II, Moisture Associate Skin Damage (jennie 11-13 -dti buttock- r and left buttock, stage 2 toe,abd fold excoriation) Current Nutrition Therapies: Adult diet Dysphagia - Pureed; Mildly Thick ([place]); Low Fat (less than or equal to [...] (248-253 lbs) % Weight Change (Calculated): 2 [place] Body Weight (lbs) (Calculated): 190 lbs C[place] Body Weight (Kg) (Calculated): 86 kg % [place] Body Weight (Calculated): 132.3 % BMI (kg/m2) (Calculated): 32.3 BMI Categories: Obese Class 1 (BMI 30.0-34.9) Nutrition Diagnosis: Inadequate protein-energy intake, Increased nutrient needs related to other (comment), acute injury/trauma, psychological cause or life stress (abscess with drain) as evidenced by wounds, reduced transportation department supervisor strength, poor intake prior to admission, [...] Oral Nutrition Supplement Eugenia Sauer RD Contact: *[phone] or [employer] chat Occupational Therapy Facility/Department: [facility] Occupational Therapy Treatment NAME: Moises Madrid : 1960 Date of Service: 06/17/2022 Discharge Recommendations: Subacute/Nursing Home Facility Assessment Performance deficits / Impairments: Decreased [...] of Hyperkalemia, EDWARDO (acute kidney injury) (CMS/HCC) ([facility]), Chest pain on breathing, Stable angina pectoris (CMS/HCC) (HCC), Idiopathic chronic 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 has a past medical history of Anxiety, Ataxia, Bipolar disorder ([facility]), Chronic pain, Constipation, Contracture, right hand, Depression, Dysphagia, Dysphagia, Dysphonia, Edema, GERD (gastroesophageal reflux disease), Headache, Hemiplegia (CMS/HCC) ([facility]), Hyperlipidemia, Hypertension, Insomnia, Muscle weakness, Neuropathy, and TBI (traumatic brain injury). has a past surgical history that includes Craniotomy. Restrictions Restrictions/Precautions Restrictions/Precautions: Fall Risk, Contact Precautions, General Precautions Required Braces or Orthoses?: No Position Activity Restriction Other position/activity restrictions: O2 n.c., tele, salvador, bcukley, drain Cognition/Orientation Overall Cognitive Status: Exceptions Arousal/Alertness: [...] . >> nl.. ef=65 % Leucocytosis.>>20. Blood kmcds=174 mg. Gi consult reviewed. Very lethargic & [...] : GIB No Renal : CKD No POLLUTION CONTROL ENGINEER : CVA/TIA No Musculoskeletal system : DJD [...] QT Interval 352 QTC Interval 479 P Thornton 43 QRS Thornton -36 T Wave Thornton 60 [place] Interval 160 Impression SINUS TACHYCARDIA LEFT AXIS [...] tachypneic and febrile SHELTON HERMAN M.D., FACC 06/17/2022 [facility] - Surgery [facility] Physicians Surgery Patient Name: Moises [...] chart review was performed. Remigio Napier MD [facility] General Surgery 12:57 PM 06/17/2022 [...] willingness to proceed with plan. Raimundo Riley, ONCOLOGY ACCOUNT SPECIALIST - HOTEL DESK CLERK Images from the original note were not included. [facility] - Infectious Diseases Attending Progress Note [...] normal. Behavior: Behavior normal. Labs: Recent Labs 06/15/22 0401 06/16/22 0318 06/17/22 0438 NA 128* 132* 130* K 4.2 4.0 3.7 CL 95* 95* 95* CO2 33* 32* 33* BUN 10 16 19 CREATININE 0.81 0.80 0.82 GLUCOSE 175* 173* 181* CALCIUM 8.0* 8.1* 8.0* PROT 6.0* 6.2* 6.5 BILITOT 0.6 0.7 0.6 ALKPHOS 111 114 117 AST 29 36 35 ALT 26 25 23 PROCAL -- 0.46* -- Recent Labs 06/15/22 0401 06/16/22 0318 06/17/22 0438 WBC 19.0* 19.9* 19.8* HGB 12.2* 12.6* 12.6* HCT 37.1* 37.8* 37.7* PLT 186 229 264 LYMPHOPCT 6* 3* 5* MONOPCT 6 5 7 Procal 0.46 Crp 195.0 Lipase 1078 434 339 Micro: No results for input(s): COVID19 in the last 72 hours. 06/15/2022 2131 06/17/2022 0401 Blood culture #2 - Suspected Infection [[id number]] Blood, Venous Preliminary result Component Value Blood Culture No growth at 24 hours P 06/15/2022 2105 06/17/2022 0401 Blood culture #1 - Suspected Infection [[id number]] Blood, Venous Preliminary result Component Value Blood Culture No growth at 24 hours P 06/15/2022 1011 06/17/2022 0933 Respiratory culture [[id number]] (Abnormal) Sputum Final result Component Value Respiratory culture Few respiratory vikram present. Gram Stain Result Moderate Polymorphonuclear leukocytes per low power field Abnormal Moderate Epithelial cells per low power field Abnormal Rare Gram positive cocci Abnormal Rare Gram negative diplococci Abnormal 06/15/2022 1010 06/15/2022 2127 Pneumonia PCR Panel [[id number]] (Abnormal) Sputum Final result Component Value Staphylococcus [...] 06/11/2022 1334 06/12/2022 0002 Pneumonia PCR Panel [[id number]] Sputum Final result Component Value Staphylococcus aureus [...] Detected 06/11/2022 1334 06/13/2022 0722 Respiratory culture [[id number]] Sputum Preliminary result Component Value Respiratory culture Rare respiratory vikram present. P Gram Stain Result Rare Epithelial cells per low power field P Moderate Polymorphonuclear leukocytes per low power field P No organisms seen P 06/10/2022 1433 06/13/2022 0924 Aerobic and Anaerobic Culture with Stain [[id number]] Abscess from Abdomen In process Component Value No component results 06/10/2022 1433 06/13/2022 0924 Culture, Aerobic Bacteria with Gram Stain [[id number]] Abscess from Abdomen Final result Component Value Culture No growth at 72 hours Gram Stain Result Rare Polymorphonuclear leukocytes per low power field No organisms seen Corrected result: Previously reported as Few Gram negative cocci (see Result History) on 06/11/2022 at 1209 EST 06/10/2022 1433 06/12/2022 1200 Anaerobic culture [[id number]] Abscess from Abdomen Preliminary result Component Value Culture No growth to date. Incubation continues P 06/10/2022 1243 06/10/2022 2302 Legionella and Streptococcus Urine Antigen [[id number]] Urine, Clean Catch Final result Component Value Legionella pneumophila Ag Not Detected Streptococcus pneumoniae Ag Not Detected 06/10/2022 1000 06/10/2022 1338 SARS-CoV-2 and Respiratory PCR Panel [[id number]] Swab from Nasopharynx Final result Component Value [...] 1401 Blood culture #1 - Suspected Infection [[id number]] Blood, Venous Preliminary result Component Value Blood Culture No growth at 72 hours P 06/10/2022 0958 06/13/2022 1401 Blood culture #2 - Suspected Infection [[id number]] Blood, Venous Preliminary result Component Value Blood Culture No growth at 72 hours P 06/07/2022 2345 06/08/2022 0035 SARS-CoV-2, Flu A/B, and RSV Combo [[id number]] Swab from Nasopharynx Final result Component Value SARS-CoV-2 Not Detected Respiratory Syncytial Virus Not Detected Influenza A Not Detected Influenza B Not Detected Lines: PIV site ok Radiography/Echo/Other: Reviewed CT abdomen pelvis w contrast [[id number]] Collected: 06/13/222204 Order Status: Completed Updated: 06/13/222220 [...] Component Value Units Date/Time US abdomen limited [[id number]] Collected: 06/13/22823 Order Status: Completed Updated: 06/13/22829 [...] negative sonographic Cole's sign reported by the environmental health technologist. Pancreas: Obscured by bowel gas. Right [...] 8:29 AM EST XR chest 1 view [[id number]] Collected: 06/12/22 1254 Order Status: Completed Updated: 06/12/22 1257 Narrative: [facility] 1960 [id number] Exam Date/Time: 06/12/2022 12:43 Procedure: XR CHEST [...] PM EST XR foot 3+ views right [[id number]] Collected: 06/12/22 1250 Order Status: Completed Updated: [...] EST CT guided abscess fluid collection drainage [[id number]] Collected: 06/10/22 1607 Order Status: Completed Updated: 06/10/22 161 Narrative: Patient Name: MOISES MADRID : 1960 Exam Date/Time: 06/10/2022 14:50 Procedure: CT GUIDED ABSCESS FLUID COLLECTION DRAINAGE Ordering Provider: EDGAR JONATHAN Reason For Exam: PROCEDURE: Drainage catheter placement Procedural Personnel Attending physician(s): Jus Barlow Indication: Peripancreatic fluid collection Additional clinical history: None Complications: No immediate complications. Impression: Percutaneous placement of a 10 [place] drainage catheter into peripancreatic fluid collection, yielding [...] fluid collection - Drainage catheter placed: 10 [place] APD - External catheter securement: Non-absorbable suture [...] EST CT abdomen pelvis wo IV contrast [[id number]] Collected: 06/10/22914 Order Status: Completed Updated: 06/10/22930 [...] 9:30 AM EST XR chest 1 view [[id number]] Collected: 06/10/2244 Order Status: Completed Updated: 06/10/22850 [...] 8:50 AM EST XR chest 1 view [[id number]] Collected: 06/07/222325 Order Status: Completed Updated: 06/07/222327 [...] were not included. Hospitalist Progress Note 06/17/2022 [phone]: Please page me ([phone]) for patient care issues. [phone]: Please page [facility] Hospitalist for any issues. Subjective: Admit Date: 06/07/2022 PCP: Demetrius Fenton Room#: 232-06/232-06 A Interval History: More alert this am. AO x 3 on exam. Feels slightly better but remains acutely ill. Adult diet Dysphagia - Pureed; Moderately Thick (Honey); Low Fat (less than or equal to 50 gm/day) @[id number]@ 24HR INTAKE/OUTPUT: Intake/Output Summary (Last 24 hours) [...] brain injury) LABS: CBC: Recent Labs 06/15/22 04006/16/2231706/17/22437 WBC 19.0* 19.9* 19.8* RBC 4.03* 4.11* 4.18* HGB 12.2* 12.6* 12.6* HCT 37.1* 37.8* 37.7* MCV 92.1 92.0 90.0 RDW 13.8 13.6 13.9 PLT 186 229 264 BMP: Recent Labs 06/15/22 04006/16/2231706/17/22437 NA 128* 132* 130* K 4.2 4.0 3.7 CL 95* 95* 95* CO2 33* 32* 33* BUN 10 16 19 CREATININE 0.81 0.80 0.82 GLUCOSE 175* 173* 181* CALCIUM 8.0* 8.1* 8.0* ANIONGAP 0* 5 2* LIVER PROFILE: Recent Labs 06/15/22 04006/16/2231706/17/22437 AST 29 36 35 ALT 26 25 [...] (last 21 days) XR chest 1 view [[id number]] Collected: 06/16/22427 Order Status: Completed Updated: 06/16/22516 Narrative: [facility]ADRID [facility] 1960 [id number] Exam Date/Time: 06/16/2022 05:16 Procedure: XR CHEST [...] 4:29 AM EST XR chest 1 view [[id number]] Collected: 06/15/221131 Order Status: Completed Updated: 06/15/221133 [...] Units Date/Time CT abdomen pelvis w contrast [[id number]] Collected: 06/13/222204 Order Status: Completed Updated: 06/13/222220 [...] Date/Time: 06/13/2022 10:20 PM EST abdomen limited [[id number]] Collected: 06/13/22823 Order Status: Completed Updated: 06/13/22829 [...] negative sonographic Cole's sign reported by the environmental health technologist. Pancreas: Obscured by bowel gas. Right [...] 8:29 AM EST XR chest 1 view [[id number]] Collected: 06/12/22 1254 Order Status: Completed Updated: 06/12/22 1257 Narrative: Patient Name: MOISES MADRID [facility] 1960 [id number] Exam Date/Time: 06/12/2022 12:43 Procedure: XR CHEST [...] PM EST XR foot 3+ views right [[id number]] Collected: 06/12/22 1250 Order Status: Completed Updated: [...] EST CT guided abscess fluid collection drainage [[id number]] Collected: 06/10/22 1607 Order Status: Completed Updated: 06/10/22 1610 Narrative: Patient Name: MOISES MADRID : 1960 Exam Date/Time: 06/10/2022 14:50 Procedure: CT GUIDED ABSCESS FLUID COLLECTION DRAINAGE Ordering Provider: EDGAR JONATHAN Reason For Exam: PROCEDURE: Drainage catheter placement Procedural Personnel Attending physician(s): Jus Barlow Indication: Peripancreatic fluid collection Additional clinical history: None Complications: No immediate complications. Impression: Percutaneous placement of a 10 [place] drainage catheter into peripancreatic fluid collection, yielding [...] fluid collection - Drainage catheter placed: 10 [place] APD - External catheter securement: Non-absorbable suture [...] EST CT abdomen pelvis wo IV contrast [[id number]] Collected: 06/10/22914 Order Status: Completed Updated: 06/10/22930 Narrative: Patient Name: MOISES MADRID DOB: 1960 [facility]#: [id number] Exam Date/Time: 06/10/2022 08:50 Procedure: CT ABDOMEN [...] 9:30 AM EST XR chest 1 view [[id number]] Collected: 06/10/22843 Order Status: Completed Updated: 06/10/22850 [...] 8:50 AM EST XR chest 1 view [[id number]] Collected: 06/07/222325 Order Status: Completed Updated: 06/07/222327 [...] disorder Medical Decision Making -Patient presents to [facility] ED from SNF on 06/08 with [...] MD Division of Hospitalist Medicine Inpatient Medical Services/[facility] PAGER: Epic chat Pharmacy Note Vancomycin Consult Non-FAN BALANCER Moises Madrid is a 61 y.o. year [...] Will continue to follow. 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 Allergies Allergen Reactions [...] study Therapeutic Interventions: Therapeutic PO trials with DICER MACHINE OPERATOR, Patient/Family education Treatment/Goals Encounter Problems Encounter Problems [...] study for further assessment. Treatment Plan Requires DICER MACHINE OPERATOR Intervention: Yes Frequency/Duration: Frequency of Treatment: 3 days/wk for Duration of Treatment: 2 weeks Therapy Time DICER MACHINE OPERATOR Individual Minutes Time In: 1515 Time Out: 1530 Minutes: 15 ALISHA Ayala student 06/16/2022 3:41 PM Cardiology Progress Note Patient Name: Moises Madrid Patient Age: 61 y.o. Date: 06/16/2022 SUBJECTIVE: pt. In isolation Sob.c/o abd. Pain. No cp. PANCREATITIS. CHOLECYSTITIS. RENAL STONE, Stress . >> nl.. ef=65 % Leucocytosis.>>20. Blood zdrmk=935 mg. Gi consult reviewed. Very lethargic & [...] : GIB No Renal : CKD No POLLUTION CONTROL ENGINEER : CVA/TIA No Musculoskeletal system : DJD [...] QT Interval 352 QTC Interval 479 P Thornton 43 QRS Thornton -36 T Wave Thornton 60 [place] Interval 160 Impression SINUS TACHYCARDIA LEFT AXIS [...] tachycardic, tachypneic and febrile SHELTON HERMAN M.D., [facility] 06/16/2022 [facility] - Surgery [facility] Physicians Surgery Patient Name: Moises [...] GLUCOSE 171* 175* 173* Hepatic: Recent Labs 06/14/2222506/15/22 0401 06/16/22 0318 AST 41 29 36 [...] proceed with plan. Raimundo Riley APRN - HOTEL DESK CLERK .. [facility] Progress Note Subjective/ 61 y.o. [...] Results from last 7 days Lab Units 06/16/2231706/15/2240006/14/22225 SODIUM mmol/L 132* 128* 127* POTASSIUM mmol/L 4.0 4.2 4.2 CHLORIDE mmol/L 95* 95* 98 CO2 mmol/L 32* 33* 32* BUN mg/dL 16 10 8* CREATININE mg/dL 0.80 0.81 0.71 GLUCOSE mg/dL 173* 175* 171* CALCIUM mg/dL 8.1* 8.0* 7.9* Results from last 7 days Lab Units 06/16/2231706/15/22 04006/14/22225 WBC AUTO 10*3/uL 19.9* 19.0* 18.7* HEMOGLOBIN [...] follow closely with you Zeynep Wyatt APRN, HOTEL DESK CLERK [facility], [facility] [phone] Patient seen and examined. Agree with above A and p. Hyponatremia starting to improve. Encourage magic cup/protein drinks. C/w FR. Will follow. Images from the original note were not included. Hospitalist Progress Note 06/16/2022 [phone]: Please page me ([phone]) for patient care issues. [phone]: Please page [facility] Hospitalist for any issues. Subjective: Admit Date: 06/07/2022 PCP: Demetrius Fenton Room#: 232-06/232-06 A Interval History: Overnight, patient febrile. On evaluation this am, patient more lethargic and AO x 0. Not following commands. Vitals are more tachycardic and tachyphenic. Worse compared to yesterday. Adult diet Dysphagia - Pureed; Moderately Thick (Honey); Low Fat (less than or equal to 50 gm/day) @[id number]@ 24HR INTAKE/OUTPUT: Intake/Output Summary (Last 24 hours) [...] (last 21 days) XR chest 1 view [[id number]] Collected: 06/16/22427 Order Status: Completed Updated: 06/16/22516 Narrative: [facility] Name: MOISES [facility]ADRID [facility] 1960 [id number] Exam Date/Time: 06/16/2022 05:16 Procedure: XR CHEST [...] 4:29 AM EST XR chest 1 view [[id number]] Collected: 06/15/22 1132 Order Status: Completed Updated: 06/15/224 Narrative: Patient Name: MOISES MADRID : 1960 [...] Units Date/Time CT abdomen pelvis w contrast [[id number]] Collected: 06/13/222204 Order Status: Completed Updated: 06/13/222220 [...] 06/13/2022 10:20 PM EST US abdomen limited [[id number]] Collected: 06/13/22823 Order Status: Completed Updated: 06/13/22829 Narrative: Patient Name: MOISES MADRID : 1960 [id number] Exam Date/Time: 06/13/2022 07:20 Procedure: US ABDOMEN [...] negative sonographic Cole's sign reported by the environmental health technologist. Pancreas: Obscured by bowel gas. Right [...] 8:29 AM EST XR chest 1 view [[id number]] Collected: 06/12/22 1254 Order Status: Completed Updated: 06/12/22 1257 Narrative: Patient Name: MOISES MADRID : 1960 [id number] Exam Date/Time: 06/12/2022 12:43 Procedure: XR CHEST [...] PM EST XR foot 3+ views right [[id number]] Collected: 06/12/22 1250 Order Status: Completed Updated: [...] EST CT guided abscess fluid collection drainage [[id number]] Collected: 06/10/22 1607 Order Status: Completed Updated: 06/10/22 1610 Narrative: Patient Name: MOISES MADRID : 1960 Exam Date/Time: 06/10/2022 14:50 Procedure: CT GUIDED ABSCESS FLUID COLLECTION DRAINAGE Ordering Provider: EDGAR JONATHAN Reason For Exam: PROCEDURE: Drainage catheter placement Procedural Personnel Attending physician(s): Jus Barlow Indication: Peripancreatic fluid collection Additional clinical history: None Complications: No immediate complications. Impression: Percutaneous placement of a 10 [place] drainage catheter into peripancreatic fluid collection, yielding [...] fluid collection - Drainage catheter placed: 10 [place] APD - External catheter securement: Non-absorbable suture [...] EST CT abdomen pelvis wo IV contrast [[id number]] Collected: 06/10/22914 Order Status: Completed Updated: 06/10/22930 [...] 9:30 AM EST XR chest 1 view [[id number]] Collected: 06/10/2244 Order Status: Completed Updated: 06/10/22850 [...] 8:50 AM EST XR chest 1 view [[id number]] Collected: 06/07/222325 Order Status: Completed Updated: 06/07/222327 [...] disorder Medical Decision Making -Patient presents to [facility] ED from SNF on 06/08 with [...] and ICU consulted. Discussed the case with supervisor belt and link assembly Dr. Rachel and resident physician Dr. Donovan [...] MD Division of Hospitalist Medicine Inpatient Medical Services/[facility] PAGER: [employer] chat Images from the original note were not included. [facility] - Infectious Diseases Attending [...] normal. Behavior: Behavior normal. Labs: Recent Labs 06/13/2232806/14/2222506/15/22400 NA 129* 127* 128* [...] 06/11/2022 1334 06/12/2022 0002 Pneumonia PCR Panel [[id number]] Sputum Final result Component Value Staphylococcus aureus [...] Detected 06/11/2022 1334 06/13/2022 0722 Respiratory culture [[id number]] Sputum Preliminary result Component Value Respiratory culture Rare respiratory vikram present. P Gram Stain Result Rare Epithelial cells per low power field P Moderate Polymorphonuclear leukocytes per low power field P No organisms seen P 06/10/2022 1433 06/13/2022 0924 Aerobic and Anaerobic Culture with Stain [[id number]] Abscess from Abdomen In process Component Value No component results 06/10/2022 1433 06/13/2022 0924 Culture, Aerobic Bacteria with Gram Stain [[id number]] Abscess from Abdomen Final result Component Value Culture No growth at 72 hours Gram Stain Result Rare Polymorphonuclear leukocytes per low power field No organisms seen Corrected result: Previously reported as Few Gram negative cocci (see Result History) on 06/11/2022 at 1209 EST 06/10/2022 1433 06/12/2022 1200 Anaerobic culture [[id number]] Abscess from Abdomen Preliminary result Component Value Culture No growth to date. Incubation continues P 06/10/2022 1243 06/10/2022 2302 Legionella and Streptococcus Urine Antigen [[id number]] Urine, Clean Catch Final result Component Value Legionella pneumophila Ag Not Detected Streptococcus pneumoniae Ag Not Detected 06/10/2022 1000 06/10/2022 1338 SARS-CoV-2 and Respiratory PCR Panel [[id number]] Swab from Nasopharynx Final result Component Value [...] 1401 Blood culture #1 - Suspected Infection [[id number]] Blood, Venous Preliminary result Component Value Blood Culture No growth at 72 hours P 06/10/2022 0958 06/13/2022 1401 Blood culture #2 - Suspected Infection [[id number]] Blood, Venous Preliminary result Component Value Blood Culture No growth at 72 hours P 06/07/2022 2345 06/08/2022 0035 SARS-CoV-2, Flu A/B, and RSV Combo [[id number]] Swab from Nasopharynx Final result Component Value SARS-CoV-2 Not Detected Respiratory Syncytial Virus Not Detected Influenza A Not Detected Influenza B Not Detected Lines: PIV site ok Radiography/Echo/Other: Reviewed CT abdomen pelvis w contrast [[id number]] Collected: 06/13/222204 Order Status: Completed Updated: 06/13/222220 Narrative: [facility] Name: MOISES MADRID [facility] 1960 [id number] Exam Date/Time: 06/13/2022 17:39 Procedure: CT ABDOMEN [...] Component Value Units Date/Time US abdomen limited [[id number]] Collected: 06/13/22823 Order Status: Completed Updated: 06/13/22829 [...] negative sonographic Cole's sign reported by the environmental health technologist. Pancreas: Obscured by bowel gas. Right [...] 8:29 AM EST XR chest 1 view [[id number]] Collected: 06/12/22 1254 Order Status: Completed Updated: 06/12/22 1257 Narrative: Patient Name: MOISES MADRID : 1960 [id number] Exam Date/Time: 06/12/2022 12:43 Procedure: XR CHEST [...] PM EST XR foot 3+ views right [[id number]] Collected: 06/12/22 1250 Order Status: Completed Updated: [...] EST CT guided abscess fluid collection drainage [[id number]] Collected: 06/10/22 160 Order Status: Completed Updated: 06/10/22 161 Narrative: Patient Name: MOISES MADRID : 1960 Exam Date/Time: 06/10/2022 14:50 Procedure: CT GUIDED ABSCESS FLUID COLLECTION DRAINAGE Ordering Provider: EDGAR JONATHAN Reason For Exam: PROCEDURE: Drainage catheter placement Procedural Personnel Attending physician(s): Jus Barlow Indication: Peripancreatic fluid collection Additional clinical history: None Complications: No immediate complications. Impression: Percutaneous placement of a 10 [place] drainage catheter into peripancreatic fluid collection, yielding [...] fluid collection - Drainage catheter placed: 10 [place] APD - External catheter securement: Non-absorbable suture [...] EST CT abdomen pelvis wo IV contrast [[id number]] Collected: 06/10/22914 Order Status: Completed Updated: 06/10/22930 Narrative: [facility] Name: MOISES MADRID [facility] 1960 [id number] Exam Date/Time: 06/10/2022 08:50 Procedure: CT ABDOMEN [...] 9:30 AM EST XR chest 1 view [[id number]] Collected: 06/10/22843 Order Status: Completed Updated: 06/10/22850 [...] 8:50 AM EST XR chest 1 view [[id number]] Collected: 06/07/222325 Order Status: Completed Updated: 06/07/222327 Narrative: Patient Name: MOISES MADRID : 1960 [id number] Exam Date/Time: 06/07/2022 23:25 Procedure: XR CHEST [...] 11:27 PM EST Antimicrobials, Start/End Dates: Pip/tazo 3/3-7 Vanco 3/5 Ceftr 3/3 Azithro 3/3 Erta 06/14- Impression: Sepsis (fever, worsening leukocytosis, [...] accounting for open encounter. Speech-Language Pathology Facility/Department: [facility] DYSPHAGIA TREATMENT NAME: Moises Madrid : 1960 [...] appropriate with this diet. Treatment Plan Requires DICER MACHINE OPERATOR Intervention: Yes Frequency/Duration: Frequency of Treatment: 3 days/wk for Duration of Treatment: 2 weeks Therapy Time DICER MACHINE OPERATOR Individual Minutes Time In: 1442 Time Out: 1513 Minutes: 31 ALISHA Canchola 06/15/2022 3:32 PM Physical Therapy Facility/Department: [facility] Physical Therapy Daily Treatment Note NAME: Moises Madrid : 1960 Date of Service: 06/15/2022 Discharge Recommendations: Subacute/Nursing Home Facility PT Equipment Recommendations Equipment Needed: (TBD [...] of right foot with fat layer exposed ([facility]) were also pertinent to this visit. has [...] act) Jessica Lott PTA Occupational Therapy Facility/Department: [facility] Occupational Therapy Treatment NAME: Moises Madrid : 1960 Date of Service: 06/15/2022 Discharge Recommendations: Subacute/Nursing Home Facility Assessment Performance deficits / Impairments: Decreased [...] of right foot with fat layer exposed ([facility]) were also pertinent to this visit. has [...] assist (Not Addressed) Start: 06/12/22 Expected End: 03/19/23 Dressings Lower Extremities Patient will dress lower [...] 24 Minutes (FA x2) Deja Saeed OT [facility] - Surgery [facility] Physicians Surgery Patient Name: Moises [...] chart review was performed. Remigio Napier MD [facility] General Surgery 2:30 PM 06/15/2022 [...] dry, and intact Data: CBC: Recent Labs 06/13/22 0329 06/14/22 0226 06/15/22 0401 WBC 14.4* 18.7* 19.0* HGB 11.9* 12.2* 12.2* HCT 35.5* 36.3* 37.1* PLT 135* 166 186 BMP: Recent Labs 0332806/14/2222506/15/22 0401 NA 129* 127* 128* K 4.0 [...] . >> nl.. ef=65 % Leucocytosis.>>20. Blood wlhzr=290 mg. Gi consult reviewed. No cp. VITALS [...] : GIB No Renal : CKD No POLLUTION CONTROL ENGINEER : CVA/TIA No Musculoskeletal system : DJD [...] QT Interval 352 QTC Interval 479 P Thornton 43 QRS Thornton -36 T Wave Thornton 60 [place] Interval 160 Impression SINUS TACHYCARDIA LEFT AXIS [...] Troponin=0.012. ekg no change, SHELTON HERMAN M.D., [facility] 06/15/2022 Images from the original note were not included. Hospitalist Progress Note 06/15/2022 [phone]: Please page me ([phone]) for patient care issues. [phone]: Please page [facility] night Hospitalist for any issues. Subjective: Admit [...] (less than or equal to 50 gm/day) @[id number]@ 24HR INTAKE/OUTPUT: Intake/Output Summary (Last 24 hours) [...] (traumatic brain injury) LABS: CBC: Recent Labs 06/13/2232806/14/2222506/15/22 040 WBC 14.4* 18.7* 19.0* RBC 3.86* 3.98* [...] 0* -3* 0* LIVER PROFILE: Recent Labs 06/13/2232806/14/2222506/15/22 0401 AST 35 41 [...] Units Date/Time CT abdomen pelvis w contrast [[id number]] Collected: 06/13/222204 Order Status: Completed Updated: 06/13/222220 Narrative: [facility]ES [facility]ADRID [facility] 1960 [id number] Exam Date/Time: 06/13/2022 17:39 Procedure: CT ABDOMEN [...] 06/13/2022 10:20 PM EST US abdomen limited [[id number]] Collected: 06/13/22823 Order Status: Completed Updated: 06/13/22829 [...] negative sonographic Cole's sign reported by the environmental health technologist. Pancreas: Obscured by bowel gas. Right [...] 8:29 AM EST XR chest 1 view [[id number]] Collected: 06/12/22 1254 Order Status: Completed Updated: [...] PM EST XR foot 3+ views right [[id number]] Collected: 06/12/221249 Order Status: Completed Updated: 06/12/221252 Narrative: Patient Name: MOISES MADRID [facility] 1960 [id number] Exam Date/Time: 06/12/2022 12:44 Procedure: XR FOOT [...] EST CT guided abscess fluid collection drainage [[id number]] Collected: 06/10/22 160 Order Status: Completed Updated: 06/10/221609 Narrative: Patient Name: MOISES MADRID : 1960 [id number] Exam Date/Time: 06/10/2022 14:50 Procedure: CT GUIDED ABSCESS FLUID COLLECTION DRAINAGE Ordering Provider: EDGAR JONATHAN Reason For Exam: PROCEDURE: Drainage catheter placement Procedural Personnel Attending physician(s): Jus Barlow Indication: Peripancreatic fluid collection Additional clinical history: None Complications: No immediate complications. Impression: Percutaneous placement of a 10 [place] drainage catheter into peripancreatic fluid collection, yielding [...] fluid collection - Drainage catheter placed: 10 [place] APD - External catheter securement: Non-absorbable suture [...] EST CT abdomen pelvis wo IV contrast [[id number]] Collected: 06/10/22914 Order Status: Completed Updated: 06/10/22930 [...] 9:30 AM EST XR chest 1 view [[id number]] Collected: 06/10/22843 Order Status: Completed Updated: 06/10/22850 Narrative: Patient Name: MOISES MADRID [facility] 1960 [id number] Exam Date/Time: 06/10/2022 08:36 Procedure: XR CHEST [...] 8:50 AM EST XR chest 1 view [[id number]] Collected: 06/07/222325 Order Status: Completed Updated: 06/07/222327 Narrative: Patient Name: MOISES MADRID : 1960 [facility]#: [id number] Exam Date/Time: 06/07/2022 23:25 Procedure: XR CHEST [...] disorder Medical Decision Making -Patient presents to [facility] ED from SNF on 06/08 with [...] MD Division of Hospitalist Medicine Inpatient Medical Services/[facility] PAGER: Epic chat [facility]Language [facility] NAME: Moises Madrid : 1960 [...] P: continue dysphagia POC. Treatment Plan Requires DICER MACHINE OPERATOR Intervention: Yes Frequency/Duration: Frequency of Treatment: 3 days/wk for Duration of Treatment: 2 weeks Therapy Time DICER MACHINE OPERATOR Individual Minutes Time In: 1435 Time Out: 1457 Minutes: 22 ALISHA Canchola 06/14/2022 3:41 PM Images from the original note were not included. [facility] - Infectious Diseases Attending Progress Note [...] -- -- 109 25 95 % 06/13/22 194 (!) 162/90 37.1 C (98.7 F) Oral [...] 06/11/2022 1334 06/12/2022 0002 Pneumonia PCR Panel [[id number]] Sputum Final result Component Value Staphylococcus aureus [...] Detected 06/11/2022 1334 06/13/2022 0722 Respiratory culture [[id number]] Sputum Preliminary result Component Value Respiratory culture Rare respiratory vikram present. P Gram Stain Result Rare Epithelial cells per low power field P Moderate Polymorphonuclear leukocytes per low power field P No organisms seen P 06/10/2022 1433 06/13/2022 0924 Aerobic and Anaerobic Culture with Stain [[id number]] Abscess from Abdomen In process Component Value No component results 06/10/2022 1433 06/13/2022 0924 Culture, Aerobic Bacteria with Gram Stain [[id number]] Abscess from Abdomen Final result Component Value Culture No growth at 72 hours Gram Stain Result Rare Polymorphonuclear leukocytes per low power field No organisms seen Corrected result: Previously reported as Few Gram negative cocci (see Result History) on 06/11/2022 at 1209 EST 06/10/2022 1433 06/12/2022 1200 Anaerobic culture [[id number]] Abscess from Abdomen Preliminary result Component Value Culture No growth to date. Incubation continues P 06/10/2022 1243 06/10/2022 2302 Legionella and Streptococcus Urine Antigen [[id number]] Urine, Clean Catch Final result Component Value Legionella pneumophila Ag Not Detected Streptococcus pneumoniae Ag Not Detected 06/10/2022 1000 06/10/2022 1338 SARS-CoV-2 and Respiratory PCR Panel [[id number]] Swab from Nasopharynx Final result Component Value [...] 1401 Blood culture #1 - Suspected Infection [[id number]] Blood, Venous Preliminary result Component Value Blood Culture No growth at 72 hours P 06/10/2022 0958 06/13/2022 1401 Blood culture #2 - Suspected Infection [[id number]] Blood, Venous Preliminary result Component Value Blood Culture No growth at 72 hours P 06/07/2022 2345 06/08/2022 0035 SARS-CoV-2, Flu A/B, and RSV Combo [[id number]] Swab from Nasopharynx Final result Component Value SARS-CoV-2 Not Detected Respiratory Syncytial Virus Not Detected Influenza A Not Detected Influenza B Not Detected Lines: PIV site ok Radiography/Echo/Other: Reviewed CT abdomen pelvis w contrast [[id number]] Collected: 06/13/222204 Order Status: Completed Updated: 06/13/222220 Narrative: [facility] 1960 [id number] Exam Date/Time: 06/13/2022 17:39 Procedure: CT ABDOMEN [...] Component Value Units Date/Time US abdomen limited [[id number]] Collected: 06/13/22823 Order Status: Completed Updated: 06/13/22829 Narrative: Patient Name: MOISES MADRID [facility] 1960 [id number] Exam Date/Time: 06/13/2022 07:20 Procedure: US ABDOMEN [...] negative sonographic Cole's sign reported by the environmental health technologist. Pancreas: Obscured by bowel gas. Right [...] 8:29 AM EST XR chest 1 view [[id number]] Collected: 06/12/22 1254 Order Status: Completed Updated: [...] PM EST XR foot 3+ views right [[id number]] Collected: 06/12/22 1250 Order Status: Completed Updated: 06/12/22 125 Narrative: Patient Name: MOISES MARDID : 1960 Exam Date/Time: 06/12/2022 12:44 Procedure: [...] EST CT guided abscess fluid collection drainage [[id number]] Collected: 06/10/22 160 Order Status: Completed Updated: 06/10/221609 Narrative: Patient Name: MOISES [facility]ADRID [facility] 1960 [id number] Exam Date/Time: 06/10/2022 14:50 Procedure: CT GUIDED ABSCESS FLUID COLLECTION DRAINAGE Ordering Provider: EDGAR JONATHAN Reason For Exam: PROCEDURE: Drainage catheter placement Procedural Personnel Attending physician(s): Jus Barlow Indication: Peripancreatic fluid collection Additional clinical history: None Complications: No immediate complications. Impression: Percutaneous placement of a 10 [place] drainage catheter into peripancreatic fluid collection, yielding [...] fluid collection - Drainage catheter placed: 10 [place] APD - External catheter securement: Non-absorbable suture [...] EST CT abdomen pelvis wo IV contrast [[id number]] Collected: 06/10/22914 Order Status: Completed Updated: 06/10/22930 [...] 9:30 AM EST XR chest 1 view [[id number]] Collected: 06/10/22843 Order Status: Completed Updated: 06/10/22850 [...] 8:50 AM EST XR chest 1 view [[id number]] Collected: 06/07/222325 Order Status: Completed Updated: 06/07/222327 Narrative: [facility] Name: MOISES [facility]ADRID [facility] 1960 [id number] Exam Date/Time: 06/07/2022 23:25 Procedure: XR CHEST [...] 11:27 PM EST Antimicrobials, Start/End Dates: Pip/tazo 3/3- Vanco 3/5 Ceftr 3/3 Azithro 3/ Impression: Acute pancreatitis with peripancreatic abscess. S/p [...] 121* 135* 166 HEPATIC: Recent Labs 06/13/22 03206/14/22225 AST 35 41 ALT 26 36 BILITOT 0.8 0.7 ALKPHOS 77 106 LIPASE/AMYLASE: Recent Labs 06/12/22 0358 06/14/22225 LIPASE 339* 434* LACTATE: No lab exists [...] Signed On 06-07-2022 23:40:41 EST by Tresa Smallwood RUQ u/s: IMPRESSION: 1. Technically limited evaluation. In [...] from the original note were not included. [facility] Wound Care Progress Note Moises Madrid AGE: [...] mouth Nightly. cholecalciferol (Vitamin D3) 1.25 MG (48054 UT) tablet Take by mouth 1 (one) [...] Do not crush, chew, or split. HYDROcodone-acetaminophen (Wilmore) 5-325 MG tablet Take 1 tablet by [...] Apply topically if needed for dry skin. Sartell-3 Fatty Acids (Fish Oil) 1000 MG capsule [...] toes - cleanse with antibacterial soap/water, leave SENIOR SYSTEMS ARCHITECT PVR ordered-completed - see 06/11/22 Vascular study results Venous insufficiency Elevate legs as much as possible Right posterior thigh Moisture associated skin damage from friction and other body fluids. - ET mix , xeroform and ABD pad. BID . Left post thigh and perineum - ET mix BID . Intertrigo, abdominal fold - miconazole powder BID Please follow up at [facility] wound care [place] after hospital discharge. Thank you for the [...] my own independent evaluation of this patient. [facility] - Surgery [facility] Physicians Surgery Patient Name: Moises [...] chart review was performed. Remigio Napier MD [facility] General Surgery 2:38 PM 06/14/2022 [...] dry, and intact Data: CBC: Recent Labs 06/12/228 06/13/2232806/14/22225 WBC 11.9* 14.4* 18.7* HGB 11.8* 11.9* 12.2* HCT 35.4* 35.5* 36.3* PLT 121* 135* 166 BMP: Recent Labs 06/12/22 0358 06/13/2232806/14/22225 NA 129* 129* 127* K 4.1 4.0 4.2 CL 104 100 98 CO2 27 29 32* BUN 11 8* 8* CREATININE 0.84 0.76 0.71 GLUCOSE 140* 189* 171* Hepatic: Recent Labs 06/12/22 0358 06/13/2232806/14/22225 AST 29 35 41 ALT 17 26 [...] note were not included. Hospitalist Progress Note 06/14/[id number]: Please page me ([phone]) for patient care issues. [id number]: Please page [facility] night Hospitalist for any issues. Subjective: Admit [...] (less than or equal to 50 gm/day) @[id number]@ 24HR INTAKE/OUTPUT: Intake/Output Summary (Last 24 hours) at 06/14/2022 0708 Last data filed at 06/14/2022 0600 Gross per 24 hour Intake 500 ml Output 2330 ml Net -1830 ml Past Medical History: Past Medical History: Diagnosis Date Anxiety Ataxia Bipolar disorder ([facility]) Chronic pain Constipation Contracture, right hand Depression Dysphagia Dysphagia Dysphonia Edema GERD (gastroesophageal reflux disease) Headache Hemiplegia (CMS/HCC) ([facility]) Hyperlipidemia Hypertension Insomnia Muscle weakness Neuropathy TBI (traumatic brain injury) LABS: CBC: Recent Labs 06/12/22 0358 06/13/22 0329 06/14/22 0226 WBC 11.9* 14.4* 18.7* RBC 3.82* 3.86* [...] Units Date/Time CT abdomen pelvis w contrast [[id number]] Collected: 06/13/222204 Order Status: Completed Updated: 06/13/222220 Narrative: Patient Name: MOISES MADRID : 1960 [facility]#: [id number] Exam Date/Time: 06/13/2022 17:39 Procedure: CT ABDOMEN [...] 06/13/2022 10:20 PM EST US abdomen limited [[id number]] Collected: 06/13/22823 Order Status: Completed Updated: 06/13/22829 Narrative: Patient Name: MOISES [facility]ADRID [facility] 1960 [id number] Exam Date/Time: 06/13/2022 07:20 Procedure: US ABDOMEN LIMITED Ordering Provider: OCRTEZ JONATHAN Reason For Exam: PANCREATITIS - ACUTE [...] negative sonographic Cole's sign reported by the environmental health technologist. Pancreas: Obscured by bowel gas. Right [...] 8:29 AM EST XR chest 1 view [[id number]] Collected: 06/12/22 1254 Order Status: Completed Updated: 06/12/22 1257 Narrative: Patient Name: MOISES MADRID [facility] 1960 [id number] Exam Date/Time: 06/12/2022 12:43 Procedure: XR CHEST [...] PM EST XR foot 3+ views right [[id number]] Collected: 06/12/22 1250 Order Status: Completed Updated: [...] EST CT guided abscess fluid collection drainage [[id number]] Collected: 06/10/22 1607 Order Status: Completed Updated: 06/10/22 1610 Narrative: Patient Name: MOISES MADRID : 1960 Exam Date/Time: 06/10/2022 14:50 Procedure: CT GUIDED ABSCESS FLUID COLLECTION DRAINAGE Ordering Provider: EDGAR JONATHAN Reason For Exam: PROCEDURE: Drainage catheter placement Procedural Personnel Attending physician(s): Jus Barlow Indication: Peripancreatic fluid collection Additional clinical history: None Complications: No immediate complications. Impression: Percutaneous placement of a 10 [place] drainage catheter into peripancreatic fluid collection, yielding [...] fluid collection - Drainage catheter placed: 10 [place] APD - External catheter securement: Non-absorbable suture [...] EST CT abdomen pelvis wo IV contrast [[id number]] Collected: 06/10/22914 Order Status: Completed Updated: 06/10/22930 [...] [facility] M[facility]ellaneous Notes S/W, follow up Patient discharged back to [facility] Orders sent via Careport to facility. Transport set via [facility] at small lot operator provided report number. Patient aware of transport today. Chart reviewed. Patient remains in HICU for treatment of SIRS and acute pancreatitis with abscess s/p percutaneous drain. ID signed off. Drained removed 06/21. Surgery signed off. DICER MACHINE OPERATOR following for dysphagia. DC plan: return to [facility] (detention) when ready. SW following. Anticipate discharge today. Images from the original note were not included. Care Management Progress Note - Discharge Expected Date/Time: 06/21/[address] discharge order Complete med reconciliation Request transport Case mgmt discharge readiness DICER MACHINE OPERATOR discharge readiness Expected Discharge History Expected Date/Time [...] but is improving. Discharge plan return to [facility] when medically stable. Images from the original note were not included. Care Management Progress Note - Discharge Expected Date/Time: 06/21/[address] discharge order Complete med reconciliation Request transport Case mgmt discharge readiness Expected Discharge History Expected Date/Time Set By Reviewed At 06/21/2022 Yessenia Couch RN 06/20/2022 10:10 AM 06/16/2022 Yessneia Couch RN 06/15/2022 8:42 AM 06/11/2022 Eugenia [...] remain stagnant-Strict I&O. [facility]. He does not need insurance auth. He will need COVID screen & completed & signed EARNEST. S/W, follow up Updates sent to [facility]. Patient able to return anytime. S/W to follow for DC. Images from the original note were not included. Care Management Progress Note - Discharge Expected Date/Time: 06/21/[address] discharge order Complete med reconciliation Request transport Case mgmt discharge readiness DICER MACHINE OPERATOR discharge readiness Expected Discharge History Expected Date/Time [...] prior to discharge. T can return to [facility] at discharge. He does not need insurance auth. He will need COVID screen & completed & signed EARNEST. S/W, follow up Up[facility]. 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 Discussed with nursing line service supervisor, bedside nurse and ICU team. Asia Nelson MD Division of Hospitalist Medicine Acute up health system 10:24 AM 06/16/22 S/W, follow up Updates sent via Careport to [facility]. Facility may be able to re-skill the patient. S/W to follow for DC. Length of Stay: 7 Anticipated date of discharge: 06/16/2022 Medical Plan of Care: ID-Follow inflammatory markers after 48h on 06/16. Substitute ertapenem for pip/tazo for 5 days. Check valproic acid level.General surgery & GI following. Continue drain mgmt- may be able to remove in coming day. DC Disposition: [facility]-light oil operator Discharge Barriers: Medical stability. Surgery is recommending to continue drain . Per CT of abdomen 06/13 near complete resolution of focal fluid noted. GI has signed off. Remains on IV antibiotics. Sodium down 127. WBC 18.7 today. Discharge plan remains to return to [facility] when medically stable. 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 Patient today with increased abdominal pain, possible drain for peripancreatic fluid, likely infected. S/W to follow. 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 I am clarifying if they need insurance approval or not. Patient with Stress Test today. S/W to follow. Discharge plan is return to [facility] when medically stable. Cardiology consult pending. Vascular us of lower extremities pending. Echo completed but no report in computer at this time. ceramic worker following for return to facility. S/W, follow up Patient in from [facility]. Referral placed in Careport inquiring on needs [...] include Q2 turns. documented in this encounter [facility] 06-23-2022 Hospital course Narrative Discharge Summary [...] of chest pain. Patient resides in a senior care . Patient presents to the Ed due [...] and management during his stay here at [facility]: # SIRS # Acute pancreatitis with [...] and now on RA. # Dysphagia - DICER MACHINE OPERATOR following. Recommended Minced and Moist (Dysphagia II), Liquid Consistency Mildly Thick ([place]) # Coronavirus positive - per ID, No [...] 81 MG EC tablet cholecalciferol 1.25 MG (67386 UT) tablet Commonly known as: Vitamin D3 [...] HYDROcodone-acetaminophen 5-325 MG tablet Commonly known as: Wilmore ketoconazole 2 % cream Commonly known as: [...] Dysphagia - Minced and Moist; Mildly Thick ([place]) ACTIVITY: Up with assist COMPLEXITY OF FOLLOW UP: [] Moderate Complexity: follow up within 7-14 calendar days (59436) [] Severe Complexity: follow up within 7 calendar days (31762) FOLLOW UP TESTING, PENDING RESULTS OR REFERRALS [...] 06/23/2022, 2:03 PM documented in this encounter [facility] 06-17-2022 Procedure note Images from the original note were not included. SPEECH LANGUAGE PATHOLOGY MODIFIED BARIUM SWALLOW STUDY Patient Name: Moises Madrid : 1960 Today's Date: 06/17/2022 Visit [facility] ADMISSION DATE: 06/07/2022 ADMITTING DIAGNOSIS: has Chest pain; Chest pain, unspecified type; Obesity, Class I, BMI 30-34.9; Hyperlipidemia; Essential hypertension, benign; Depression; Hemiplegia (CMS/HCC) (HCC); and 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 General Information Ordering [...] Bite-Sized (Dysphagia III), Dysphagia Pureed (Dysphagia I), [place] cup, [place] teaspoon, Honey cup, Honey teaspoon, Thin cup, [...] appropriate. Plan & Recommendations Recommendations/Treatment: Recommendations/Treat Requires DICER MACHINE OPERATOR Intervention: Yes Recommendations: Judd Water Protocol Recommendations comment: Free water with small amount of ice chips. MAKE SURE FOR SWALLOW AFTER EVERY BITE D/C Recommendations: Ongoing speech therapy is recommended during this hospitalization Solid consistency: Dysphagia Pureed (Dysphagia I) Liquid consistency: Mildly Thick ([place]) Liquid administration via: Cup Medication administration: Meds in puree Supervision: Close Compensatory Swallowing Strategies : Assist feed, Small bites/sips, Upright as possible for all oral intake, Remain upright for 30-45 minutes after meals, Alternate solids and liquids (WATCH CLOSE for swallows) Postural Changes and/or Swallow Maneuvers: Upright 90 degrees, Upright 30 min after meal Therapeutic Interventions: Therapeutic PO trials with DICER MACHINE OPERATOR, Patient/Family education, Diet tolerance monitoring, Judd Water [...] Start: 06/11/22 Expected End: 06/25/22 Therapy Time DICER MACHINE OPERATOR Individual Minutes Time In: 1442 Time Out: 1513 Minutes: 31 ALISHA Canchola documented in this encounter [facility] 06-17-2022 Consult note Formatting of th is note might be different from the original. Vancomycin therapy has been discontinued by Dr. Dickerson on 06-17-22. Thank you for the consult. Pharmacy signing off for vancomycin dosing. Jessy Gresham RP, Date: 06/17/22 Time: 10:15 AM Associated Order(s): [...] Historical ProviderMD cholecalciferol (Vitamin D3) 1.25 MG (20361 UT) tablet Take by mouth 1 (one) [...] crush, chew, or split. Historical ProviderMD HYDROcodone-acetaminophen (Wilmore) 5-325 MG tablet Take 1 tablet by [...] mg by mouth 2 times daily. Historical Provider metoprolol tartrate (Lopressor) 25 MG tablet Take 25 mg by mouth 2 times daily. Historical Provider, mineral oil-hydrophilic petrolatum (Aquaphor) ointment Apply topically if needed for dry skin. Historical Provider, Sartell-3 Fatty Acids (Fish Oil) 1000 MG capsule delayed-release Take 2,000 mg by mouth. Historical Provider, potassium chloride CR (Klor-Con M20) 20 MEQ [...] by mouth 2 times daily. Historical Provider, Objective: Oxygen Delivery: O2 Flow Rate (L/min): [...] Normal [] Scar/Lesion/Mass Inspection of teeth/lips/gums Dentition: [][place] Teeth []Dentures Lips/Gums: []Intact []Lesion Present Mucosa: [][place] []Moist []Dry Neck: External Appearance Overall Appearance: [...] within last 24 hours- BMP: Recent Labs 06/14/22 0226 06/15/22 0401 06/16/22 0318 NA 127* 128* 132* K 4.2 4.2 4.0 CL 98 95* 95* CO2 32* 33* 32* BUN 8* 10 16 CREATININE 0.71 0.81 0.80 CALCIUM 7.9* 8.0* 8.1* MG 2.2 2.3 2.2 LFTs: Recent Labs 06/14/2222506/15/22 0401 06/15/22 1343 06/16/22 0318 AST 41 29 -- 36 ALT 36 26 -- 25 PROT 5.9* 6.0* -- 6.2* ALBUMIN 2.9* 3.0* -- 3.1* BILITOT 0.7 0.6 -- 0.7 BILIRUBINU -- -- Negative -- ALKPHOS 106 111 -- 114 LIPASE 434* -- -- 718* Glucose: Recent Labs 06/14/2222506/15/22 0401 06/16/22 0318 GLUCOSE 171* 175* 173* Procal: Recent Labs 06/14/2222506/16/22 031 PROCAL 0.47* 0.46* CBC: Recent Labs 06/14/2222506/15/22 0401 06/16/22 0318 WBC 18.7* 19.0* 19.9* HGB 12.2* 12.2* 12.6* HCT 36.3* 37.1* 37.8* PLT 166 186 229 MCV 91.1 92.1 92.0 RDW 13.6 13.8 13.6 ABGs: Recent Labs 06/16/22 0941 PHART 7.452* PBZ8NTT 42.3 PO2ART 67.7* [id number] 29.5* SO2ART 94.0* Lactic Acid: No results [...] and management if needed. Jhon Bethea MD hvac technician residential, PGY-III Pager: [phone] 06/16/2022 at 10:44 AM Associated attestation - [...] Narrative [facility] Name: MOISES [facility]ADRID [facility] 1960 [id number] Exam Date/Time: 06/16/2022 05:16 Procedure: XR CHEST [...] tract infection-supportive care Patient was discussed with [facility] physician Dr. Nelson.. At this time patient [...] complaint listed above. Patient resides in a senior care. Patient presents to the Ed due to [...] mouth Nightly. cholecalciferol (Vitamin D3) 1.25 MG (54171 UT) tablet Take by mouth 1 (one) [...] Do not crush, chew, or split. HYDROcodone-acetaminophen (Wilmore) 5-325 MG tablet Take 1 tablet by [...] Apply topically if needed for dry skin. Sartell-3 Fatty Acids (Fish Oil) 1000 MG capsule [...] of affect Data: LIVER PROFILE: Recent Labs 06/13/22 03206/14/226 06/15/22 0401 AST 35 41 29 ALT 26 36 26 BILITOT 0.8 0.7 0.6 ALKPHOS 77 106 111 CBC: Recent Labs 06/13/22 03206/14/2222506/15/22 0401 WBC 14.4* 18.7* 19.0* RBC 3.86* 3.98* 4.03* HGB 11.9* 12.2* 12.2* HCT 35.5* 36.3* 37.1* MCV 92.0 91.1 92.1 RDW 13.3 13.6 13.8 PLT 135* 166 186 BMP: Recent Labs 06/13/22 0329 06/14/22 0226 06/15/22 0401 NA 129* 127* 128* [...] any questions or concerns. Brenda Blanco APRN, HOTEL DESK CLERK [facility], [facility] [phone] office Seen and examined. Agree with above [...] Practitioner Consult Note Available for page via [employer] Monday, Monday, Monday [phone] Outside of these hours, please contact Dr. Nj ([id number] [id number]) or psychiatry on-call. Moises Madrid is a [...] I came here. Reports living at the [facility] in [place] and states he likes it there. Has [...] bipolar 1, insomnia, anxiety, TBI. Records from [place] note diagnosis of bipolar disorder, severe, current episode depressed with psychotic features and mixed expressive-receptive language disorder Psychiatrist: through [facility] @ [place] Counselor: denies Pipe Insulator Helper: I don't know Hospitalizations: multiple in past, [...] mouth Nightly. cholecalciferol (Vitamin D3) 1.25 MG (42008 UT) tablet Take by mouth 1 (one) [...] Do not crush, chew, or split. HYDROcodone-acetaminophen (Wilmore) 5-325 MG tablet Take 1 tablet by [...] Apply topically if needed for dry skin. Sartell-3 Fatty Acids (Fish Oil) 1000 MG capsule [...] Social History: Patient reports growing up in [place] with both parents and two brothers. He denies abuse/violence in the home as a child. Denies abuse/violence as an adult. Patient completed trade school and worked with [employer] as an adult. He has never been , has no children. Reports he has 1 brother that occasionally checks in with him but the other is estranged, voices no other support. Currently living in [facility], has been there for several years and likes it there. Denies service, denies legal history. Denies affiliation with caodaism but does endorse a belief in God. [...] Tangential [] Loose associations [] Circumstantial [] Roberts [] Perseverative [] Poverty of Thought [] [...] hypertension of right lower extremity with ulcer ([facility]) ASSESSMENT Major Depression vs Bipolar with current [...] in hospital. Will hold off on constant vamp stitcher at this time. Should patient verbalize a plan or worsening SI, recommend adding suicide precautions and constant vamp stitcher. Patient's passive suicidal thoughts appear directly related [...] from the original note were not included. [facility] - Infectious Diseases Attending Consult Note Reason for Consult: Pancreatic fluid collection/abscess History of Present Illness: Patient is 61 year old admitted to [facility] with shortness of breath and chest [...] (Uro-Jet) 2 % gel Urethral PRN Mani Edgar DO melatonin tablet 6 mg 6 mg Oral Nightly PRN Brenda Hagan 6 mg at 06/11/22 2118 miconazole (Micotin) 2 % powder Topical BID Bertha Rodrigez, ONCOLOGY ACCOUNT SPECIALIST - HOTEL DESK CLERK Given at 06/11/22 2157 nitroglycerin (Nitrostat) SL tablet 0.4 mg 0.4 [...] mL IVPB 4,500 mg IntraVENous q6h Mani Edgar DO 200 mL/hr at 06/12/22 0606 4,500 mg at 06/12/22 0606 polyethylene glycol (PEG) 3350 (Miralax) packet 17 g 17 g Oral Daily PRN Brenda Hagan 17 g at 06/11/22 1517 senna-docusate sodium (Senokot-S) 8.6-50 MG tablet 2 tablet 2 tablet Oral Daily Mani Edgar DO 2 tablet at 06/11/22 0815 stomahesive in petrolatum (ET Mix) Topical PRN Bertha Rodrigez APRN - HOTEL DESK CLERK Given at 06/11/22 1546 Allergies: Allergies Allergen [...] normal. Behavior: Behavior normal. Labs: Recent Labs 06/10/2222806/11/22 0510 06/12/22 0358 NA 133* 133* 129* K [...] of chest pain. Patient lives in a senior care secondary to traumatic brain injury and history [...] 1 (one) time per week. Yes Historical ProviderMD acetaminophen (Tylenol) 325 MG tablet Take 650 [...] Historical Provider, cholecalciferol (Vitamin D3) 1.25 MG (35187 UT) tablet Take by mouth 1 (one) [...] crush, chew, or split. Historical ProviderMD HYDROcodone-acetaminophen (Wilmore) 5-325 MG tablet Take 1 tablet by [...] if needed for dry skin. Historical ProviderMD Sartell-3 Fatty Acids (Fish Oil) 1000 MG capsule [...] PLT 123* 121* 132* HEPATIC: Recent Labs 06/10/22 02206/11/22 0510 AST 63* 30 ALT 18 15 [...] complications. Impression: Percutaneous placement of a 10 [place] drainage catheter into peripancreatic fluid collection, yielding [...] fluid collection - Drainage catheter placed: 10 [place] APD - External catheter securement: Non-absorbable suture [...] Narrative: [facility]RID [facility] 1960 [id number] Exam Date/Time: 06/10/2022 08:36 Procedure: XR CHEST [...] Associated Order(s): IP CONSULT TO GENERAL SURGERY [facility] - Surgery [facility] Physicians Surgery Patient Name: Moises [...] chart review was performed. Remigio Napier MD [facility] General Surgery 10:00 PM 06/10/2022 [...] HTN, HLD, bipolar, and was currently at [facility]. He initially presented with substernal chest [...] Historical Provider, cholecalciferol (Vitamin D3) 1.25 MG (87253 UT) tablet Take by mouth 1 (one) [...] crush, chew, or split. Historical ProviderMD HYDROcodone-acetaminophen (Wilmore) 5-325 MG tablet Take 1 tablet by [...] if needed for dry skin. Historical ProviderMD Sartell-3 Fatty Acids (Fish Oil) 1000 MG capsule [...] 140 123* 121* BMP: Recent Labs 06/08/22 04006/09/2234306/10/22228 NA 135 133* 133* K 5.2* 4.8 4.3 CL 107 107 105 CO2 25 23 22 BUN 35* 25* 19 CREATININE 1.21 1.02 0.87 GLUCOSE 126* 186* 233* Hepatic: Recent Labs 06/10/22228 AST 63* ALT 18 BILITOT 1.1 ALKPHOS 83 Mag: Recent Labs 06/08/22 04006/09/2234306/10/22228 MG 2.1 1.8 2.2 Phos: No results [...] from the original note were not included. [facility] Wound Care CONSULT Note Moises Madrid AGE: [...] History: Diagnosis Date Anxiety Ataxia Bipolar disorder ([facility]) Chronic pain Constipation Contracture, right hand Depression Dysphagia Dysphagia Dysphonia Edema GERD (gastroesophageal reflux disease) Headache Hemiplegia (CMS/HCC) ([facility]LY [facility]) Hyperlipidemia Hypertension Insomnia Muscle weakness Neuropathy TBI [...] mouth Nightly. cholecalciferol (Vitamin D3) 1.25 MG (38669 UT) tablet Take by mouth 1 (one) [...] Do not crush, chew, or split. HYDROcodone-acetaminophen (Wilmore) 5-325 MG tablet Take 1 tablet by [...] Apply topically if needed for dry skin. Sartell-3 Fatty Acids (Fish Oil) 1000 MG capsule [...] miconazole powder BID Please follow [facility] at [facility] [place] after hospital discharge. Thank you for the [...] is a 61 yo male admitted to [facility] after presenting to ED with [...] 1 (one) time per week. Yes Historical ProviderMD acetaminophen (Tylenol) 325 MG tablet Take 650 [...] Historical ProviderMD cholecalciferol (Vitamin D3) 1.25 MG (28959 UT) tablet Take by mouth 1 (one) [...] crush, chew, or split. Historical ProviderMD HYDROcodone-acetaminophen (Wilmore) 5-325 MG tablet Take 1 tablet by mouth every 6 hours as needed. Historical ProviderMD ketoconazole (NIZOral) 2 % cream Apply topically 2 times daily. Historical Provider, lisinopril 20 MG tablet Take 40 mg by mouth daily. Historical Provider, melatonin 5 MG tablet Take 3 mg by mouth Nightly. Historical ProviderMD memantine (Namenda) 10 MG tablet Take 10 mg by mouth 2 times daily. Historical ProviderMD metoprolol tartrate (Lopressor) 25 MG tablet Take 25 mg by mouth 2 times daily. Historical ProviderMD mineral oil-hydrophilic petrolatum (Aquaphor) ointment Apply topically if needed for dry skin. Historical ProviderMD Sartell-3 Fatty Acids (Fish Oil) 1000 MG capsule delayed-release Take 2,000 mg by mouth. Historical Provider, potassium chloride CR (Klor-Con M20) 20 MEQ [...] ABGs: No results found for: PHART, PO2ART, [id number] INR: No results for input(s): INR in [...] Hyperlipidemia Essential hypertension, benign Depression Hemiplegia (CMS/HCC) ([facility]) PLAN: Aggressive secondary risk factor management. Treat [...] PATIENT NAME: Moises Madrid DATE: 06/08/2022 PAGER: [phone] documented in this encounter [facility] 06-16-2022 Nurse Note Patient found to [...] assisted to CT table and place supine. library monitor on. 10 Fr drain inserted. Bandaid applied to site. Patient tolerated procedure well. Report called and patient transferred to HICU 6, report called back to RN. At 0802 Johnny Costa notified of increased abd pain, abd distended, tender to palpation all quads. Hypoactive BS. No [id number]. Also increased need of 02, on RA pt 89% on 4l 94%. Labs, cxr and CT of ABD/pelvis. Attempted buckley x 2 16fr unsuccessful followed by 14fr coude, unsuccessful documented in this encounter [facility] 06-08-2022 Hospital Discharge instructions Becky Upton [...] Unit/Room#: 232-06/232-06 A Discharging Unit Phone Number: [phone] Emergency Contact: Extended Emergency Contact Information Primary [...] assistance Toileting Total assistance Feeding Minimal assistance Tomato Paste Maker Minimal assistance Med Delivery yes Wound Care Documentation and Therapy: Wound/Incision 06/08/22 Pressure Injury Toe (Comment which one) Anterior;Right (Active) Wound Image 06/08/22 0359 Site Assessment Painful;[place];Sloughing 06/08/22425 Drainage Amount Scant 06/08/22 042 Treatments Other (Comment) 06/08/22425 Primary Dressing Open to air 06/08/22 042 Number of days: 0 Wound/Incision 06/08/22 Other (comment) Abdominal fold Circumferential (Active) Site Assessment Blanchable erythema 06/08/22 0426 Odor None 06/08/22425 Drainage Amount None 06/08/22425 Treatments Moisture barrier ointment 06/08/22425 Primary Dressing Open to air 06/08/22 042 Number of days: 0 Wound/Incision 06/08/22 Pressure Injury Buttock Right;Posterior;Lower (Active) Wound Image 06/08/22 0425 Site Assessment Sloughing 06/08/22425 Primary Dressing Open to air 06/08/22 042 Number of days: 0 Wound/Incision 06/08/22 Pressure Injury Buttock Left;Lower;Posterior (Active) Wound Image 06/08/22 0424 Site Assessment Intact 06/08/22425 Drainage Amount None 06/08/22425 Primary Dressing Open to air 06/08/22425 Number of days: 0 Wound/Incision 06/08/22 Pressure Injury Perineum Medial (Active) Wound Image 06/08/22425 Site Assessment Blanchable erythema 06/08/22425 Drainage Amount None 06/08/22425 Primary Dressing Open to air 06/08/22425 Number of days: 0 Elimination: Continence: Bowel: [...] Details Model IP RISK OF UNPLANNED READMISSION [[id number]] is not released. No score information can be retrieved Discharging to Facility/ Agency Name: [facility] Address: [address] [place] [address] Rd. [address] Fax: Dialysis Facility (if applicable) Name: Address: Dialysis Schedule: Phone: Fax: Lard Mixer/Pick Remover signature: ICIAN SECTION Prognosis: poor Condition at Discharge: stable Rehab Potential (if transferring to Rehab): poor Recommended Labs or Other Treatments After Discharge: Physician Certification: I certify the above information and transfer of Moises Madrid is necessary for the continuing treatment of the diagnosis listed and that he requires senior living facility for greater than 30 days. Update Admission H&P: No change in H&P PHYSICIAN SIGNATURE: documented in this encounter [facility] 06-08-2022 History and physical note Images [...] complaint listed above. Patient resides in a senior care . Patient presents to the Ed due [...] History: Diagnosis Date Anxiety Ataxia Bipolar disorder (CMS/HCC) Chronic pain Constipation Contracture, right hand Depression Dysphagia Dysphagia Dysphonia Edema GERD (gastroesophageal reflux disease) Headache Hemiplegia (CMS/HCC) Hyperlipidemia Hypertension Insomnia Muscle weakness Neuropathy TBI (traumatic brain injury) ([facility]) Past Surgical History: Past Surgical History: Procedure [...] appropriate, normal insight. DATA: CBC: Recent Labs 06/07/222311 WBC 10.4 RBC 4.70 HGB 14.6 HCT 43.7 MCV 93.0 RDW 13.6 PLT 159 BMP: Recent Labs 06/07/222311 NA 134* K 6.0* CL 105 CO2 25 BUN 41* CREATININE 1.38* GLUCOSE 137* CALCIUM 9.6 ANIONGAP 4 LIVER PROFILE:No results for input(s): AST, ALT, BILITOT, ALKPHOS, PROT in the last 72 hours. No lab exists for component: LABALBU PT/INR: No results for input(s): PROTIME, INR in the last 72 hours. CARDIAC ENZYMES: Recent Labs 06/07/222311 TROPONINI <0.012 Procalcitonin: No results found for: [...] [facility] Division of Hospitalist Medicine Inpatient Medical Services/[facility] documented in this encounter [facility] 06-07-2022 Emergency department Note Pt states no relief after 1 nitroglycerin. However, due to pt pressure, unable to continue to administer. Dr. Smallwood notified, new orders placed. Karen Patel RN 06/07/22 4276 Emergency Department Encounter [facility] ED Patient: Moises Madrid : 1960 [...] afternoon. No relief despite dispensed PPI at senior care. Given 481 mg aspirins by EMS with [...] Brief ED course/MDM: 61-year-old male presenting from senior care for constant central nonradiating chest pain since [...] [employer] Tresa Smallwood DO 06/07/22 2343 Tresa Smallwood [...] History: Diagnosis Date Anxiety Ataxia Bipolar disorder (CMS/HCC) Chronic pain Constipation Contracture, right hand Depression Dysphagia Dysphagia Dysphonia Edema GERD (gastroesophageal reflux disease) Headache Hemiplegia ([facility]/HCC) Hyperlipidemia Hypertension Insomnia Muscle weakness Neuropathy TBI (traumatic brain injury) ([facility]) SURGICAL HISTORY Past Surgical History: Procedure Laterality [...] In compliance with this authorization, please visit www.fda.gov/media/312464/download or www.fda.gov/media/298769/download to access the applicable information sheets. TROPONIN [...] and DIFFERENTIAL DIAGNOSIS/MDM: Vitals: Vitals: 06/07/22 2303 06/07/222 06/07/22234106/08/22 0057 BP: 107/57 106/75 94/56 92/61 BP [...] tablet 0.4 mg (0.4 mg SubLINGual Given 06/07/222331) sodium chloride 0.9 % bolus 1,000 mL (1,000 mL IntraVENous New Bag 06/08/22) insulin regular (HumuLIN R,NovoLIN R) injection 5 Units (5 Units IntraVENous Given 06/08/22) And dextrose 50 % solution 25 g (25 g IntraVENous Given 06/08/2228) sodium bicarbonate 8.4 % injection 50 mEq [...] 2. Hyperkalemia 3. EDWARDO (acute kidney injury) ([facility]) ([facility]) DISPOSITION Observation 06/08/2022 01:18:58 AM PATIENT REFERRED [...] PA-C 06/08/22 0127 documented in this encounter [facility] Evaluation note Diagnosis Cellulitis of right lower extremity- Primary Cellulitis and abscess of leg, except foot Elevated lactic acid level Other nonspecific abnormal serum enzyme levels documented in this encounter [facility] Work Phone: Evaluation noteNo assessment information available [facility] Work Phone: Evaluation note* Diagnosis Calculus of [...] [facility] Diagnosis Peripheral vascular disease, unspecified (HCC)- Primary Peripheral vascular disease, unspecified Venous insufficiency (chronic) (peripheral) Unspecified venous (peripheral) insufficiency 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) Calculus of gallbladder without cholecystitis without obstruction Acute pancreatitis without necrosis or infection, unspecified Epigastric pain Abdominal pain, epigastric [facility] Diagnosis Preop testing- Primary Unspecified pre-operative [...] Abdominal pain, epigastric [facility] Diagnosis Encounter for postoperative care- Primary [facility]* Diagnosis Passive suicidal ideations- Primary documented in this encounter [facility] note* Diagnosis Chronic daily headache- Primary Headache Intractable chronic migraine without aura and with status migrainosus Chronic migraine without aura, with intractable migraine, so stated, with status migrainosus Traumatic brain injury with loss of consciousness, sequela (HCC) Insomnia, unspecified type documented [facility] this [facility]* Diagnosis Cellulitis of right lower extremity- Primary Right lower quadrant abdominal pain Constipation, unspecified constipation type [facility]* Diagnosis Lymphedema- Primary Other noninfectious lymphedema Venous insufficiency (chronic) (peripheral) Unspecified venous (peripheral) insufficiency Non-pressure chronic ulcer right lower leg, limited to breakdown skin (HCC) 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) Decreased mobility documented in this encounter [facility] note* Diagnosis Venous insufficiency (chronic) (peripheral)- Primary Unspecified venous (peripheral) insufficiency Lymphedema Other noninfectious lymphedema Non-pressure chronic ulcer right lower leg, limited to breakdown skin (HCC) Non-pressure chronic ulcer of other part of right foot with fat layer exposed (HCC) Decreased mobility [facility]* Diagnosis Venous insufficiency (chronic) (peripheral)- Primary Unspecified venous (peripheral) insufficiency Lymphedema Other noninfectious lymphedema Non-pressure chronic ulcer right lower leg, limited to breakdown skin (HCC) Non-pressure chronic ulcer of other part of right foot with fat layer exposed (HCC) Decreased mobility [facility] Diagnosis Non-pressure chronic ulcer of other part of right foot with fat layer exposed (HCC) Lymphedema Other noninfectious lymphedema Venous insufficiency (chronic) (peripheral) Unspecified venous (peripheral) insufficiency Non-pressure chronic ulcer right lower leg, limited to breakdown skin (HCC) documented [facility]* Diagnosis Non-pressure chronic ulcer of other part of right foot with fat layer exposed (HCC) Venous insufficiency (chronic) (peripheral) Unspecified venous (peripheral) insufficiency Lymphedema Other noninfectious lymphedema [facility] Diagnosis Non-pressure chronic ulcer of other [...] with ulcer of right lower extremity (CODE) ([facility]) [I87.311]- Primary Non-pressure chronic ulcer of other part of right lower leg with fat layer exposed ([facility]) [L97.812] Chronic venous hypertension (idiopathic) with ulcer of left lower extremity (CODE) (HCC) [I87.312] Non-pressure chronic ulcer of other part of left lower leg with fat layer exposed (HCC) [L97.822] Peripheral venous insufficiency [I87.2] Unspecified venous (peripheral) insufficiency [facility] Diagnosis Chest pain- Primary Unspecified chest pain Chest pain, unspecified type Hyperkalemia Hyperpotassemia EDWARDO (acute kidney injury) (CMS/HCC) (HCC) Chest pain on breathing Painful respiration Stable angina pectoris (CMS/HCC) (HCC) Idiopathic chronic venous hypertension of right lower extremity with ulcer (HCC) Peripheral vascular disease, unspecified (HCC) Peripheral vascular disease, unspecified Venous insufficiency (chronic) (peripheral) Unspecified venous (peripheral) insufficiency Non-pressure chronic ulcer of other part of right foot with fat layer exposed (HCC) Depression Depressive disorder, not elsewhere classified Essential hypertension, benign Hemiplegia (CMS/HCC) (HCC) Unspecified hemiplegia affecting unspecified side Obesity, Class [...] with ulcer of right lower extremity (CODE) ([facility]) [I87.311] Non-pressure chronic ulcer of other part of right lower leg with fat layer exposed (HCC) [L97.812] Non-pressure chronic ulcer of other part of left lower leg with fat layer exposed (HCC) [L97.822] Non-pressure chronic ulcer left lower leg, limited to breakdown skin ([facility]) Venous insufficiency (chronic) (peripheral) Unspecified venous (peripheral) insufficiency Decreased mobility Lymphedema Other noninfectious lymphedema [facility] Diagnosis Cellulitis of leg, right- [...] of consciousness, sequela documented in this encounter [facility] for referral (narrative)No reason for referral information availableWUniversity [facility] Work Phone: Summary Purpose Family History No Family History Records FoundNo Family History Records FoundNo Family History Records FoundNo Family History Records FoundNo Family History Records FoundNo Family History Records Found Advance Directives No Advanced Directives Records FoundDocuments on File Type Date Recorded Patient Load Checker Expl anation Advance Directive(s) 01/21/2020 12:21 PM [...] Documents on File Type Date Recorded Patient Load Checker Expl 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 * Hypertension: Emergency or Urgency (Greek) * Headache (Greek) documented in this encounter* Attachments The following attachments cannot be sent through Care Everywhere. * Head Injury: Closed: General Info (Greek) * Lacerations: Rashida (Greek) documented in this encounter Assessments Diagnosis Hypertensive urgency Unspecified essential hypertension Acute nonintractable headache, unspecified headache type Diagnosis Injury of head, initial encounter- Primary Laceration of scalp, initial encounter Chief Complaint and Reason for Visit Chief Complaint INTERMEDIATE LABWORK INTERMEDIATE LABWORK Chief Complaint INTERMEDIATE LABWORK INTERMEDIATE LAB WORK INTERMEDIATE LABWORK Chief Complaint INTERMEDIATE LABWORK INTERMEDIATE LAB WORK INTERMEDIATE LAB WORK Chief Complaint INTERMEDIATE LABWORK INTERMEDIATE LAB WORK INTERMEDIATE LAB WORK INTERMEDIATE LAB WORK Chief Complaint INTERMEDIATE LAB WOR K INTERMEDIATE LAB WORK LABWORK Chief Complaint INTERMEDIATE LAB WOR K INTERMEDIATE LAB WORK LABWORK LABWORK Chief Complaint INTERMEDIATE LAB WOR K LABWORK LABWORK LABWORK Chief Complaint LABWORK LABWORK LABWORK LABWORK INTERMEDIATE LAB WORK Chief Complaint INTERMEDIATE LABWORK LABWORK INTERMEDIATE LABWORK LABWORK INTERMEDIATE LABWORK INTERMEDIATE LABWORK INTERMEDIATE LAB WORK INTERMEDIATE LAB WORK Chief Complaint INTERMEDIATE LABWORK LABWORK INTERMEDIATE LABWORK INTERMEDIATE LABWORK INTERMEDIATE LAB WORK INTERMEDIATE LAB WORK INTERMEDIATE LABWORK Chief Complaint LABWORK INTERMEDIATE LABWORK INTERMEDIATE LABWORK INTERMEDIATE LAB WORK INTERMEDIATE LAB WORK INTERMEDIATE LABWORK INTERMEDIATE LABWORK INTERMEDIATE LABWORK Chief Complaint INTERMEDIATE LAB WOR K INTERMEDIATE LABWORK INTERMEDIATE LABWORK INTERMEDIATE LABWORK Chief Complaint INTERMEDIATE LABWORK INTERMEDIATE LABWORK INTERMEDIATE LABWORK INTERMEDIATE LABWORK INTERMEDIATE LABWORK LABWORK Chief Complaint INTERMEDIATE LABWORK INTERMEDIATE LABWORK INTERMEDIATE LABWORK LABWORK INTERMEDIATE LAB WORK LABWORK Chief Complaint INTERMEDIATE LABWORK INTERMEDIATE LABWORK LABWORK INTERMEDIATE LAB WORK LABWORK INTERMEDIATE LAB WORK Chief Complaint LABWORK INTERMEDIATE LAB WORK LABWORK INTERMEDIATE LAB WORK INTERMEDIATE LAB WORK INTERMEDIATE LABWORK Chief Complaint LABWORK LABWORK Chief Complaint LABWORK LABWORK LABWORK Chief Complaint INTERMEDIATE LABWORK LABWORK INTERMEDIATE LAB WORK LABWORK INTERMEDIATE LAB WORK INTERMEDIATE LAB WORK Chief Complaint Admit Date INTERMEDIATE LAB WORK March 13, 2024 4:40am INTERMEDIATE LAB WORK June 10, 2024 4: 00am Chief Complaint Admit Date INTERMEDIATE LAB WORK June 10, 2024 4: 00am LABWORK July 08, 2024 5:0 0am Chief Complaint Admit Date INTERMEDIATE LAB WORK June 10, 2024 4: 00am LABWORK July 08, 2024 5:0 0am INTERMEDIATE LAB WORK July 22, 2024 5 :00am Chief Complaint Admit Date INTERMEDIATE LAB WORK June 10, 2024 4: 00am LABWORK July 08, 2024 5:0 0am INTERMEDIATE LAB WORK July 22, 2024 5 :00am INTERMEDIATE LAB WORK July 29, 2024 4 :00am Reason for Referral Specialty Diagnoses / Procedures Referred By Contac t Referred To Contact Radiology Diagnoses Calculus of gallbladder without cholecystitis without obstruction Peripancreatic abscess Procedures CT abdomen pelvis w contrast Candie Vieyra PA-C [address] [place] [address] Referral ID Status Reason Start Date Expiration Date V isits Requested Visits Authorized [id number] Pending Review 07/29/2022 01/25/2023 1 1 Referral ID Status Reason Start Date Expiration Date V isits Requested Visits Authorized [id number] Authorized 07/29/2022 01/25/2023 1 1 Specialty Diagnoses / Procedures Referred By Contac t Referred To Contact Cardiology Diagnoses Peripheral vascular disease, unspecified (HCC) Venous insufficiency (chronic) (peripheral) 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) Procedures Vascular US lower extremity venous duplex bilateral Demetrius Fenton [address] [facility] [address] [place] [id number] Referral ID Status Reason Start Date Expiration Date Visits Requested Visits Authorized [id number] Pending Review Perform Procedure 06/09/2022 12/06/2022 1 1 Specialty Diagnoses / Procedures Referred By Contac t Referred To Contact Radiology Diagnoses Calculus of gallbladder without cholecystitis without obstruction Peripancreatic abscess Procedures CT abdomen pelvis w contrast Candie Vieyra PA-C [address] [place] [address] [place] [address] Referral ID Status Reason Start Date Expiration Date Visits Re quested Visits Authorized [id number] Closed 09/30/2022 10/30/2022 1 1 Additional Source Comments (unrecognized sect ion and content) No Status Records FoundNo Status Records FoundNo Status Records FoundNo Status Records FoundNo Status Records FoundNo Status Records Found INFORMATION SOURCE (unrecogn ized section and content) DATE CREATED AUTHOR 04/05/2019 [facility] DATE CREATED AUTHOR AUTHOR'S ORGANIZ ATION 10/14/2021 [facility] DATE CREATED AUTHOR AUTHOR'S ORGANIZ ATION 11/08/2021 [facility] DATE CREATED AUTHOR AUTHOR'S ORGANIZ ATION 04/11/2024 [facility] DATE CREATED AUTHOR AUTHOR'S ORGANIZ ATION 07/09/2024 [facility] DATE CREATED AUTHOR AUTHOR'S ORGANIZ ATION 11/09/2024 [facility] Reason for Visit (unrecogniz ed section and content) Reason Comments Hypertension Reason Comments Appointment needs outpatient cys toscopy in the OR Reason Comments Head Injury Fall Reason Comments Leg Swelling Reason Onset Date Comments OTHER 07/15/2022 Reason Comments 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 Specialty Diagnoses / Procedures Referred By Contac t Referred To Contact General Surgery Diagnoses Disease of gallbladder, unspecified Procedures [place] ABDOMEN WALL SURG PROC UNLISTED Demetrius Fenton [address] [facility] [address] [place] [address] Brady Powell MD [address] [place] [address] Referral ID Status Reason Start Date Expiration Date V isits Requested Visits Authorized [id number] Closed Specialty Services Required 07/28/2022 01/27/2023 1 1 Specialty Diagnoses / Procedures Referred By Contac t Referred To Contact Radiology Diagnoses Calculus of gallbladder without cholecystitis without obstruction Peripancreatic abscess Procedures CT abdomen pelvis w contrast Candie Vieyra PA-C [address] [place] [address] [place] [address] Referral ID Status Reason Start Date Expiration Date Visits Re quested Visits Authorized [id number] Closed 09/30/2022 10/30/2022 1 1 Reason Comments Post-op ALS PO 2WK LAP RAMBO Reason Comments Suicidal Pt arrived via [facility] care. Pt told staff at senior care that he was thinking about driving his [...] on breathing EDWARDO (acute kidney injury) (CMS/HCC) ([facility]) Chest pain, unspecified type Procedures . Brenda Hagan [address] [place] [address] [facility] [address] [place] [address] Referral ID Status Reason Start Date Expiration Date Visits Re quested Visits Authorized [id number] 1 Reason Comments Follow Up Chronic daily headac hes Source Comments (unrecognize d section and content) In the event this informatio n is protected by the Federal Confidentiality of Alcohol and Drug Abuse Patient Records regulations: The Federal rules restrict any use of the information to criminally investigate or prosecute any alcohol or drug abuse patient.[facility] the event this information is protected by the Federal Confidentiality of Alcohol and Drug Abuse Patient Records regulations: The Federal rules restrict any use of the information to criminally investigate or prosecute any alcohol or drug abuse patient.[facility] Township[facility] the event this information is protected by the Federal Confidentiality of Alcohol and Drug Abuse Patient Records regulations: The Federal rules restrict any use of the information to criminally investigate or prosecute any alcohol or drug abuse patient.[facility] Township[facility] the event this information is protected by the Federal Confidentiality of Alcohol and Drug Abuse Patient Records regulations: The Federal rules restrict any use of the information to criminally investigate or prosecute any alcohol or drug abuse patient.[facility] Telephone Encounter - Raul Banks - 01/24/2020 3:36 PM EDTTelephone Encounter - Margaret Christopher ([facility]) - 01/23/2020 5:10 PM EDT Miscellaneous Notes (unrecog nized section and content) Pt seen at [place] to schedule cysto, dilation in pt/guardian are interested. If they'd prefer [place] let one of our [place] docs know Raul Banks MD Please contact the patients guardian and arrange a cystoscopy in the OR as an outpatient with Dr. Banks Urinary retention, bulbar stricture He will be discharged to [facility] documented in this encounter Care Teams (unrecognized [...] WICK Attending Provider, Referring Provi javier Active Reimbursement Director Relationship Specialty Start Date End Date Yogi Smith MD [address] [address] PCP - General Family Medicine 04/10/21 Reimbursement Director Relationship Specialty Start Date End Date Yogi Smith MD [address] [address] PCP - General Family Medicine 04/10/21 Reimbursement Director Relationship Specialty Start Date End Date Yogi Smith MD [address] [place] [address] PCP - General Family Medicine 04/10/21 Reimbursement Director Relationship Specialty Start Date End Date Yogi Smith MD [address] [address] PCP - General Family Medicine 04/10/21 Team Status: Inactive Member Role Status Dates Gunnar Cummings Attending Provider Active Team Status: Inactive Member Role Status Dates Demetrius Fenton Attending Provider Active Team Status: Active Member Role Status Dates Demetrius Fenton Attending Provider Active Reimbursement Director Relationship Specialty Start Date End Date Demetrius Fenton [address] [facility] [address] [place] [address] PCP - General Internal Medicine 06/09/22 Reimbursement Director Relationship Specialty Start Date End Date Demetrius Fenton [address] [place] [address] PCP - General Internal Medicine 06/09/22 Reimbursement Director Relationship Specialty Start Date End Date Demetrius Fenton [address] [place] [address] PCP - General Internal Medicine 06/09/22 Reimbursement Director Relationship Specialty Start Date End Date Demetrius Fenton [address] [place] [address] PCP - General Internal Medicine 06/09/22 Reimbursement Director Relationship Specialty Start Date End Date Demetrius Fenton [address] [place] [address] PCP - General Internal Medicine 06/09/22 Reimbursement Director Relationship Specialty Start Date End Date Demetrius Fenton [address] [place] [address] PCP - General Internal Medicine 06/09/22 Reimbursement Director Relationship Specialty Start Date End Date Demetrius Fenton [address] [place] [address] PCP - General Internal Medicine 06/09/22 Reimbursement Director Relationship Specialty Start Date End Date Demetrius Fenton [address] [place] [address] PCP - General Internal Medicine 06/09/22 Reimbursement Director Relationship Specialty Start Date End Date Demetrius Fenton [address] [place] [address] PCP - General Internal Medicine 06/09/22 Reimbursement Director Relationship Specialty Start Date End Date Demetrius Fenton [address] [place] [address] PCP - General Internal Medicine 06/09/22 Reimbursement Director Relationship Specialty Start Date End Date Demetrius Fenton [address] [place] [address] PCP - General Internal Medicine 06/09/22 Reimbursement Director Relationship Specialty Start Date End Date Demetrius Fenton [address] [place] [address] PCP - General Internal Medicine 06/09/22 Team Status: Inactive Member Role Status Dates Gunnar WICK Attending Provider, Referring Prov ider Active Reimbursement Director Relationship Specialty Start Date End Date Demetrius Fenton MD [address] [place] [address] PCP - General Internal Medicine 06/16/23 Reimbursement Director Relationship Specialty Start Date End Date Demetrius Fenton [address] [place] [address] PCP - General Internal Medicine 06/09/22 Reimbursement Director Relationship Specialty Start Date End Date Demetrius Fenton MD [address] [place] [address] PCP - General Internal Medicine 06/16/23 Reimbursement Director Relationship Specialty Start Date End Date Demetrius Fenton [address] [place] [address] PCP - General Internal Medicine 06/09/22 Reimbursement Director Relationship Specialty Start Date End Date Demetrius Fenton [address] [place] [phone] PCP - General Internal Medicine 06/09/22 Reimbursement Director Relationship Specialty Start Date End Date Demetrius Fenton [address] [place] [phone] PCP - General Internal Medicine 06/09/22 Reimbursement Director Relationship Specialty Start Date End Date Demetrius Fenton [address] [place] [address] PCP - General Internal Medicine 06/09/22 Reimbursement Director Relationship Specialty Start Date End Date Demetrius Fenton [address] [place] [address] PCP - General Internal Medicine 06/09/22 Reimbursement Director Relationship Specialty Start Date End Date Demetrius Fenton [address] [place] [phone] PCP - General Internal Medicine 06/09/22 Reimbursement Director Relationship Specialty Start Date End Date Demetrius Fenton [address] [place] [phone] PCP - General Internal Medicine 06/09/22 Reimbursement Director Relationship Specialty Start Date End Date Demetrius Fenton [address] [place] [phone] PCP - General Internal Medicine 06/09/22 Reimbursement Director Relationship Specialty Start Date End Date Demetrius Fenton [address] [place] [address] PCP - General Internal Medicine 06/09/22 Reimbursement Director Relationship Specialty Start Date End Date Demetrius Fenton [address] [place] [address] PCP - General Internal Medicine 06/09/22 Reimbursement Director Relationship Specialty Start Date End Date Demetrius Fenton [address] [place] [address] PCP - General Internal Medicine 06/09/22 Reimbursement Director Relationship Specialty Start Date End Date Demetrius Fenton [address] [place] [address] PCP - General Internal Medicine 06/09/22 Reimbursement Director Relationship Specialty Start Date End Date Demetrius Fenton [address] [place] [address] PCP - General Internal Medicine 06/09/22 Reimbursement Director Relationship Specialty Start Date End Date Demetrius Fenton MD [address] [place] [address] PCP - General Internal Medicine 06/16/23 Team Status: Active Member Role Status Dates Demetrius WICK Attending Provider Active Sta rt: March 13, 2024 Demetrius WICK Referring Provider Active Sta rt: March [...] Active Member Role Status Dates Demetrius Fenton SHAMIKA Attending Provider Active Sta rt: July 22, 2024 Team Status: Inactive Member Role Status Dates Demetrius Fenton SHAMIKA Attending Provider Active Sta rt: July 22, 2024 End: July 22, 2024 Team Status: Active Member Role Status Dates Demetrius Fenton SHAMIKA Attending Provider Active Sta rt: July 29, 2024 Team Status: Inactive Member Role Status Dates Demetrius Fenton SHAMIKA Attending Provider Active Sta rt: July 29, 2024 End: July 29, 2024 Demetrius Fenton SHAMIKA Referring Provider Active Sta rt: July 29, [...] On 02/18/24 at 0130, For 1 dose 020 (Given - Provid er: Janie Sims) Scheduled Medication Order 06/21/2022 06/22/2022 06/23/2022 ARIPiprazole (Abilify) tablet 5 mg 5 mg, Oral, Daily, First dose on Mon06/12/22 at 0900 0853 (Given - Provider: Joslyn Reyes RN) 08 (Given - Provider: Demetrius Castillo RN) 09 (Given - Provider: Becky Upton RN) aspirin chewable tablet 81 mg 81 mg, Oral, Daily, First dose on Mon06/08/22 at 0900 0853 (Given - Provider: Joslyn Reyes RN) 08 (Given - Provider: Demetrius Castillo, SO) 09 (Given - Provider: Becky Upton [...] 826 (Given - Provider: Demetrius Castillo, RN) 904 (Given - Provider: Becky Upton, SO) guaiFENesin (Mucinex) 12 hr tablet 600 mg 600 mg, Oral, 2 times daily, First dose on Jessica 06/16/22 at 0900, Administer with plenty of fluids to ensure proper action. Do not crush, chew, or split. 0853 (Given - Provider: Joslyn Reyes RN)2034 (Given - Provider: Lilli Ku RN) 826 (Given - Provider: Demetrius Castillo, RN)2026 (Given - Provider: Lilli Barragan, SO) 904 (Given - Provider: Becky Upton RN) influenza [...] RN) 826 (Given - Provider: Demetrius Castillo, SO)2026 (Given - Provider: Lilli Barragan, SO) 09 (Given - Provider: Becky Upton, SO) metoprolol tartrate (Lopressor) tablet 25 mg 25 mg, Oral, 2 times daily, First dose on Jessica 06/23/22 at 1200 1400 (Given - Provider: Becky Upton RN) miconazole (Micotin) 2 % powder Topical, 2 times daily, First dose on Mon06/08/22 at 2100, Apply to all skin folds BID 0853 (Given - Provider: Joslyn Reeys RN)2035 (Given - Provider: Lilli Ku RN - Comment: skin folds) 08 (Given - Provider: Demetrius Castillo, RN)2028 (Given - Provider: Lilli Barragan RN) [...] mg from all sources in 24 hours. 1814 (Given - Provider: Joslyn Reyes RN) 0141 (Given - Provider: Lilli Barragan RN) bisacodyl [...] 24 hours. 0546 (Given - Provider: Lilli Ku, SO) stomahesive in petrolatum (ET Mix) Topical, As [...] BE BASED ON THE PRIMARY CLINICAL RECORDS. [employer] [facility]. provides no warranty or guarantee of the accuracy or completeness of information in this document.
[2024-12-05 09:23] LABS: Hematocrit 42.6 % (40-54); Hemoglobin 15.0 g/dL (13.0-16.5); Mean Corp Hgb Conc 35.2 g/dL (32-36); Mean Corpuscular Volume 88.8 fL (80-94); Mean Platelet Vol. 11.2 fl (6.2-12.0); Platelet Count 117 K/mm3 (150-450); RBC Distribution Width CV 12.5 % (11.6-14.6); RBC Distribution Width SD 40.2 fl (35.1-43.9); Red Blood Count 4.80 M/mm3 (4.6-6.2); White Blood Count 7.8 K/mm3 (4.4-11.0)
[2024-12-05 09:49] LABS: Anion Gap 14 (5-15); BUN 18 mg/dL (4-19); BUN/Creat Ratio 15.8 RATIO (10-20); Calcium,Total 9.2 mg/dL (7.6-11.0); Carbon Dioxide 22.8 mmol/L (21.0-32.0); Chloride 100 mmol/L (98-108); Glucose 144 mg/dL (70-99); Potassium 4.7 mmol/L (3.3-5.1)
== END ==
LOC: OLS.SANC 05:00
PROVIDERS: Visit Provider Internal Medicine
DX: I10 Essential (primary) hypertension (principal); E87.6 Hypokalemia; I70.25 Atherosclerosis of native arteries of other extremities with ulceration
CPT/HCPCS: 36415; 80048; 85027

== ENCOUNTER → 2024-12-10 | Outpatient (REF) | payer MEDICARE, MEDICAID, SELFPAY ==
[2024-12-10 10:08] LABS: Valproic Acid (Depakene) Level 59 ug/mL (50-100)
== END ==
LOC: OLS.SANC 05:00
PROVIDERS: Visit Provider Internal Medicine
DX: Z79.899 Other long term (current) drug therapy (principal)
CPT/HCPCS: 36415; 80164

== ENCOUNTER → 2025-01-07 | Outpatient (REF) | payer MEDICARE, MEDICAID, SELFPAY ==
[2025-01-07 09:36] LABS: AST(SGOT) 28 U/L (<=37); Alanine Aminotransfer ALT/SGPT 27 U/L (<=46); Albumin, Serum 3.7 g/dL (3.4-4.8); Alkaline Phosphatase 54 U/L (40-129); Anion Gap 11 (5-15); BUN 12 mg/dL (4-19); BUN/Creat Ratio 11.6 RATIO (10-20); Calcium,Total 9.1 mg/dL (7.6-11.0); Carbon Dioxide 24.5 mmol/L (21.0-32.0); Chloride 100 mmol/L (98-108); Globulin 2.3 g/dL (2.2-4.2); Glucose 126 mg/dL (70-99); Potassium 4.6 mmol/L (3.3-5.1)
[2025-01-07 09:48] LABS: Hematocrit 40.3 % (40-54); Hemoglobin 13.9 g/dL (13.0-16.5); Mean Corp Hgb Conc 34.5 g/dL (32-36); Mean Corpuscular Volume 90.8 fL (80-94); Mean Platelet Vol. 11.6 fl (6.2-12.0); Platelet Count 121 K/mm3 (150-450); RBC Distribution Width CV 12.9 % (11.6-14.6); RBC Distribution Width SD 41.9 fl (35.1-43.9); Red Blood Count 4.44 M/mm3 (4.6-6.2); White Blood Count 6.3 K/mm3 (4.4-11.0)
[2025-01-07 10:06] LABS: Valproic Acid (Depakene) Level 37 ug/mL (50-100)
== END ==
LOC: OLS.SANC 05:00
PROVIDERS: Visit Provider Internal Medicine
DX: I10 Essential (primary) hypertension (principal); E78.5 Hyperlipidemia, unspecified
CPT/HCPCS: 36415; 80053; 80164; 85027

== ENCOUNTER → 2025-01-13 | Outpatient (REF) | payer MEDICARE, MEDICAID, SELFPAY ==
[2025-01-13 07:47] LABS: Mucous, Urine 0 SEEN /hpf (<or=2+); Red Blood Cells-Urine 0 SEEN /hpf (0-5); Squamous Epithelial Cells - UA 0 SEEN /hpf (0-5)
[2025-01-13 09:02] LABS: Color, Urine Yellow (Yellow); Glucose, Dipstick Normal (Normal); Ketone-Dipstick Negative (Negative); Leukocyte Esterase-Dipstick 25 /ul (Negative); Nitrite-Dipstick Negative (Negative); Occult Blood-Urine Negative /ul (Negative); Protein-Dipstick Negative (Negative); Specific Gravity, Urine 1.010 (1.002-1.030); Urine Bilirubin Dipstick Negative (Negative)
== END ==
LOC: OLS.SANC 04:00
PROVIDERS: Visit Provider Internal Medicine
DX: R41.0 Disorientation, unspecified (principal)
CPT/HCPCS: 81001; 87077; 87086; 87088; 87186

== ENCOUNTER → 2025-03-21 05:00 | Outpatient (REF) | payer MEDICARE, MEDICAID, SELFPAY ==
--- OUTSIDE RECORDS SUMMARY | 2025-03-21 04:14 | XMS RPT_ITS | CCD ---
Author Organization [facility] Care Team Providers Care Pharmacy Informatics Manager Name Role Phone Unavailable Primary Care Provider UnavailGunnar Kenney Primary Care Provider [phone] Yogi Smith MD Primary Care Provider Unavailable Primary Care Provider UnavailDeemtrius Macedo Primary Care Provider Demetrius Fenton Primary [...] Primary Care Unavailable CLAUDIA, JULISSA Attending Unavailable Katsaros Demetrius SIMON Primary Care Provider Suzy WICK, Demetrius Attending Provider Unavailab le Katsaros SHAMIKA, Demetrius Referring Provider Unavailab le Katsaros SHAMIKA, Demetrius Attending Provider Unavailab le Katsaros OLS, Peter Referring Provider Unavailab le KATSAROS, DEMETRIUS MABRYS Primary Care Unavaila CHHAYA Littlejohn Attending Unavailable KATSAROS, DEMETRIUS MABRYS Primary Care Unavaila CHHAYA Littlejohn Attending Unavailable Gunnar Lucero Attending Physician Unavail able Katsaros SHAMIKA, Demetrius Attending Physician Unavaila ble Katsaros OLS, Demetrius Attending Unavailable Katsaros OLS, Demetrius Attending Unavailable Katsaros SHAMIKA, Demetrius Attending Unavailable Gunnar Lucero Attending Unavailable Katsaros SHAMIKA, Demetrius Attending Unavailable Katsaros SHAMIKA, Demetrius Attending Unavailable Katsaros OLS, Demetrius Referring Unavailable Katsaros OLS, Demetrius Attending Unavailable Katsaros OLS, Demetrius Attending Unavailable Katsaros OLS, Demetrius Attending Unavailable Katsaros OLS, Demetrius Attending Unavailable Katsaros OLS, Demetrius Referring Unavailable Katsaros OLS, Demetrius Referring Unavailable Katsaros OLS, Demetrius Attending Unavailable Katsaros OLS, Demetrius Attending Unavailable Allergies Allergy Classification Reported Allergen(s) Allergy Type Date of Onset Reaction(s) Facility hydrALAZINE (3 sources) hydrALAZINE Drug Allergy 05-25-19 Unknown [facility] Lincosamides (antibiotic) (3 sources) Clindamycin Drug Allergy 09-26-19 14 Rash [facility] Opioid Agonists (3 sources) traMADol Drug Allergy 05-25-19 Unknown [facility] Pollen (3 sources) Pollen Substance Allergy 10-26-19 [facility] Sulfamethoxazole / Trimethoprim (3 sources) Sulfamethoxazole / Trimethoprim Drug Allergy 05-25-19 Unknown [facility] (20 sources) Clindamycin; Translations: [CLINDAMYCIN] Drug Allergy 09-26-19 14 [facility] Work Phone: (20 sources) Other Propensity to adverse reactions 03-09-20 [facility] Work Phone: (1 source) Cat Gut Sutures [Other] Propensity to adverse reactions 03-09-20 [facility] (20 sources) hydrALAZINE; Translations: [HYDRALAZINE] Drug Allergy [...] (3 sources) Temazepam Drug Allergy 05-25-19 Unknown [facility] (2 sources) Pollen; Translations: [POLLENS EXTRACT] Drug Allergy 07-09-19 Unknown [facility] NEGATED: Highlighted row has been ruled out! (12 sources) Other Propensity to adverse reactions 03-09-20 [facility] Work Phone: Medications Current Medications Medication Drug [...] temp). Active take 2 capsules by m [facility] every four hours acetaminophen 325 mg cap [...] by mouth every eight hours HYDROcodone-aceta minophen ([place]) 5-325 MG tablet Take 1 tablet by [...] every 8 hours as needed for pain. [id number] 200 actuat albuterol 0.09 mg/actuat metered dose [...] Active Start: 06-21-2018 take 2 tablets by [facility] once daily amLODIPine (NORVASC) 5 MG tablet [...] oral tablet (2 sources) Macrolide Antimicrobial End: take 1 tablet by mouth once daily [...] Comment on above: Take 1 capsule by [facility] once each week. ciprofloxacin 500 mg oral tablet (13 sources) Quinolone Antimicrobial Start: 03-08-2022 ciprofloxacin (Cipro) 500 MG tablet cloNIDine hydrochloride 0.1 mg oral tablet (20 sources) Central alpha-2 Adrenergic Agonist Start: 06-24-2022 cloNIDine HCl (CATAPRES) 0.1 mg tablet Take 0.1 mg by mouth. 06/24/2022 Active Start: 05-27-2022 cloNIDine (Cat apres-TTS) 0.3 MG/24HR End: 06-23-2022 take 1 tablet by [facility] twice daily cloNIDine (CATAPRES) 0.1 MG tablet [...] 1000 mg / omega-3 acid ethyl esters (fpc) 300 mg delayed release oral capsule (7 sources) take 2000 mg by mouth twice daily [place]-3 Fatty Acids (FISH OIL) 1000 MG CPDR [...] on above: Take 1 capsule by mo [facility] once daily. docusate sodium 50 mg / sennosides, fpc 8.6 mg oral tablet (20 sources) Start: [...] on above: Take 2 tablets by mo [facility]. doxycycline hyclate 100 mg oral capsule [...] Start: 06-25-2022 ergocalciferol (Vitamin D2) 1.25 MG (78450 UT) capsule 2 ml famotidine 10 mg/ml injection (20 sources) Histamine-2 Receptor Antagonist Start: 06-09-2022 take 1 dose intravenously once 20 mg, IntraVENous, Administer over 2 Minutes, Once, On Jessica 06/09/22 at 0415, For 1 dose IV [...] capsule End: 06-23-2022 take 1 capsule by [facility] three times daily gabapentin (NEURONTIN) 100 MG [...] End: 06-23-2022 take 2 tablets by mo [facility] once daily lisinopril (PRINIVIL;ZESTRIL) 20 MG tablet [...] 2 times d aily, First dose on [facility] 06/23/22 at 1200 Start: 06-09-2022 End: 06-09-2022 5 mg, IntraVENous, Every 5 m in PRN, patient has chest pain, ST segment elevation on EKG, heart rate 150 or greater, SBP 240 mmHg or greater, or DBP 120 mmHg or greater, Starting on [facility] 06/09/22 at 1442, For 3 doses, [...] Drug Start: 05-24-2022 minocycline 100 MG capsule [place]-3 Fatty Acids (FISH OIL) 1000 MG CPDR (8 sources) take 2000 mg by mouth twice daily [place]-3 Fatty Acids (FISH OIL) 1000 MG CPDR [...] mouth tw ice daily. polyethylene glycol 3350 48205 mg powder for oral solution (7 sources) [...] Start: 03-24-2015 take 1 tablet by [facility] twice daily potassium chloride (K-TAB) 10 mEq [...] above: Take 1 tablet by [facility] twice daily. sodium chloride flush 0.9 % [...] on above: Take 1 capsule by mo [facility] once daily. topiramate 25 mg oral capsule [...] 3 mg/ml oral solution (2 sources) Uncompetitive G-yzpgjp-P-aspartate Receptor Antagonist, Sigma-1 Agonist End: 06-23 1 [...] severe pain (7-10), Starting on 06/12/22 at 0921 If oral and IV narcotics [...] hydrochloride 10 mg oral tablet (20 sources) W-vmmyvs-S-aspartate Receptor Antagonist Start: 2014 End: 2024 take 1 tablet by mouth twice daily memantine (NAMENDA) 10 mg tablet Indications: TBI (traumatic brain injury), with loss of consciousness of unspecified duration, sequela Take 1 tablet by mouth twice daily. 180 tablet 1 03/24/2015 07/08/2024 Discontinued Comment on above: Take 1 tablet by [facility] twice daily. 2 ml metoclopramide 5 mg/ml [...] 02/19/2020 Discontinued take 1 tablet by [facility] once daily QUEtiapine (SEROQUEL) 50 MG tablet Take 50 mg by mouth nightly 0 Active Comment on above: Take 2 tablets by mo [facility] daily at bedtime. 10 ml sodium bicarbonate [...] Meropenem Med-Surg/Crit Care Init Dosing MEENU 8, Childcare Center Administrator cl >=50, 3h Suspected Indication (Select all [...] Onset: 03-09-2006 03-09-2006 Episodic Headache; including migraine (5 sources) Acute headache; Translations: [Chronic daily headache] Onset: 09-25-2013 09-25-2013 Hyperplasia of prostate (1 source) Benign prostatic hyperplasia without lower urinary tract symptoms; Translations: [Benign prostatic hyperplasia without lower urinary tract symptoms] Onset: 07-26-2024 Chronic Hypertension with complications and secondary hypertension (20 sources) Hypertensive urgency ; Translations: [Hypertensive urgency] Onset: 07-27-2022 07-27-2022 Chronic Mood disorders (20 sources) Depressive disorder; Translations: [Depressive disorder] Onset: 03-14-2015 06-20-2018 Chronic Other aftercare (1 source) Postoperative visit; Translations: [Encounter for other specified surgical aftercare] 11-16-2022 Episodic Other aftercare (2 sources) Other care home (current) drug therapy; Translations: [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] Onset: 03-27-2024 Episodic Other [...] source) Insomnia; Translations: [Insomnia, unspecified] 06-16-2023 Episodic Residual codes; unclassified (1 source) Insomnia, unspecified; Translations: [Insomnia, unspecified type] Onset: 01-13-2025 Episodic Residual codes; unclassified (1 source) Disorientation, unspecified; Translations: [Disorientation, unspecified] Onset: 02-07-2025 Episodic Residual codes; unclassified (1 source) Altered mental status, unspecified; Translations: [Altered mental status, unspecified] Onset: 02-07-2025 Episodic Skin and subcutaneous tissue infections (1 [...] kidney failure, unspecified] Onset: 06-08-2022 07-27-2022 Episodic Intracranial injury (20 sources) Traumatic brain injury; [...] current use of drug therapy; Translations: [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] Onset: 02-26-2022 07-27-2022 Episodic [...] Test Name Value Interpretation Reference Range Facility Urine Cultureon 01-15-2025 [facility] Escherichia coli [place] Count 80,000-100,000 Escherichia coli: REACTION Ampicillin Islt MEENU <=2 Ampicillin+Sulbac Islt MEENU <=2 S Cefepime Islt MEENU <=0.12 S cefTRIAXone Islt MEENU <=0.25 S Ciprofloxacin Islt MEENU >=4 R B-Lactamase Extended Susc Islt NEG Gentamicin Islt MEENU <=1 S levoFLOXacin Islt MEENU >=8 R Meropenem Islt MEENU <=0.25 S Nitrofurantoin Islt MEENU 32 S Pip+Tazo Islt MEENU <=4 S TMP SMX Islt MEENU >=320 R Normal [facility] Comment on above: Performed By: #### L 500.4050, L501.9985, L500.4100, L100.0500 #### [facility] [address] [place], [address] Bilirubin Test strip Ql (U)O rdered By: Demetrius Fenton on 01-13-2025 Bilirubin Ql (U) Negative Negative [facility] CNOVon 01-13-2025 CNOV Office Visit ([facility] ) MOISES MADRID ([id number]) 1960 M Date Time Provider Department 01/13/25 11:30 AM CHHAYA SALDANA [facility] During your visit today, we recorded the following information about you: Pulse Blood pressure 74/minute 91/64 Chhaya Saldana MD 01/13/2025 4:53 PM Signed FOLLOW UP NOTE Subjective Moises Julienip is a 64 year old male who presents for follow [...] of psychiatric medications. HPI Current Issues - Off amitriptyline and Aimovig since the last visit, no changes to headache - Headache is constant - Headache currently more holocranial, throbbing / pulsing pain - Has phobias, generally not nauseous - Not positional - In interim was started on Ubrelvy PRN for headache, not familiar to him not sure if helpful - Tends to be up late, trouble sleeping Current neuropsychiatric medications (with listed indications on med list): - Abilify 10 mg daily (MDD) - Depakote 250 mg TID (bipolar disorder with psychotic features) - Venlafaxine XR 75 mg BID (depression) - Gabapentin 400 mg Tid (pain) - Melatonin 10 mg QHS (sleep) - [place] 5 mg q8hrs PRN pain (takes around 3 times a day for the head, also has pain in the right foot) Current Outpatient Medications Medication Sig Dispense Refill UBRELVY 50 mg tablet Take 50 mg by mouth once daily as needed for migraine headache (see administration instructions). albuterol HFA (PROVENTIL HFA) 90 mcg/actuation inhaler Inhale 2 Puffs as instructed every 6 hours as needed for wheezing/shortness of breath. vitamin B complex (B-COMPLEX ORAL) Take 10 [...] Take 2 tablets by mouth once daily. cloNIDine HCl (CATAPRES) 0.1 mg tablet Take [...] Take 10 mg by mouth once daily. venlafaxine (EFFEXOR) [...] 1 tablet by mouth twice daily. 0 ondansetron (ZOFRAN) 4 mg tablet Take 4 mg by mouth as needed for nausea/vomiting. No current facility-administered medications for this visit. (more content not included)... Normal [facility] Ketones Test strip Ql (U)Ord ered By: Demetrius Fenton on 01-13-2025 Ketones Ql (U) Negative Negative [facility] Microscopic analysis of urin e for red blood cells (RBC)Ordered By: Demetrius Fenton on 01-13-2025 Microscopic analysis of urine for red blood cells (RBC) 0 SEEN /hpf 0-5 [facility] Mucus LM Ql (Urine sed)Order ed By: Demetrius Fenton on 01-13-2025 Mucus Ql (Urine sed) 0 SEEN /hpf [facility] Nitrite Test strip Ql (U)Ord ered By: Demetrius Fenton on 01-13-2025 Nitrite Ql (U) Negative Negative [facility] Protein Test strip Ql (U)Ord ered By: Demetrius Fenton on 01-13-2025 Protein Ql (U) Negative Negative [facility] Squamous epithelial cells de tection in urine sediment by light microscopyOrdered By: Demetrius Fenton on 01-13-2025 Epithelial cells.squamous LM Ql (Urine sed) 0 SEEN /hpf 0-5 [facility] Urinalysis, Completeon 01-13 WBC 0-5 SEEN Normal 0-5 [facility] Comment on above: Order Comment: CLEAN CATCH Performed By: #### L 500.4050, L501.9985, L500.4100, L100.0500 #### [facility] [address] [place], [address] BACTERIA 0 SEEN Normal None Seen [facility] Comment on above: Order Comment: CLEAN CATCH Performed By: #### L 500.4050, L501.9985, L500.4100, L100.0500 #### [facility] [address] [place], [address] EPI,SQUAMOUS 0 SEEN Normal 0-5 [facility] Comment on above: Order Comment: CLEAN CATCH Performed By: #### L 500.4050, L501.9985, L500.4100, L100.0500 #### [facility] [address] [place], [address] Mucus Ql (Urine sed) 0 SEEN Normal [facility] Comment on above: Order Comment: CLEAN CATCH Performed By: #### L 500.4050, L501.9985, L500.4100, L100.0500 #### [facility] [address] [place], [address] RBC 0 SEEN Normal 0-5 [facility] Comment on above: Order Comment: CLEAN CATCH Performed By: #### L 500.4050, L501.9985, L500.4100, L100.0500 #### [facility] [address] [place], [address] Urine clarityOrdered By: Miriam Fenton on 01-13-2025 Clarity (U) Clear Clear [facility] Urine color determinationOrd ered By: Demetrius Fenton on 01-13-2025 Color (U) Yellow Yellow [facility] Urine cultureOrdered By: Miriam Fenton on 01-13-2025 Bacteria identified Cx Nom (U) Escherichia coli Abnormal [facility] Urine glucose detectionOrder ed By: Demetrius Fenton on 01-13-2025 Glucose Ql (U) Normal mg/dl Normal [facility] Urine leukocyte esterase det ection by dipstickOrdered By: Demetrius Fenton on 01-13-2025 Leukocyte esterase Test strip Ql (U) 25 /ul High Negative [facility] Urine pHOrdered By: Demetrius astorga on 01-13-2025 pH (U) 7.0 [pH] 5.0 - 8.0 [facility] Urine sediment bacteria coun t by microscopy (number/high power field)Ordered By: Demetrius Fenton on 01-13-2025 Bacteria LM.HPF (Urine sed) [#/Area] 0 /[HPF] None Seen [facility] Urine specific gravity measu rementOrdered By: Demetrius Fenton on 01-13-2025 Specific gravity (U) [Rel density] 1.010 1.002-1.030 [facility] Urine urobilinogen measureme ntOrdered By: Demetrius Fenton on 01-13-2025 Urobilinogen Ql (U) Normal mg/dl Normal [facility] White blood cell countOrdere d By: Demetrius Fenton on 01-13-2025 White blood cell count 0-5 SEEN /hpf 0-5 [facility] Anion gap in Serum or Plasma Ordered By: Demetrius Fenton on 01-07-2025 Anion gap [Moles/Vol] 11 mmol/L 5-15 [facility] BUN/creatinine ratioOrdered By: Demetrius Fenton on 01-07-2025 Urea nitrogen/Creatinine [Mass ratio] 11.6 mg/mg 10-20 [facility] Bilirubin, totalOrdered By: Demetrius Fenton on 01-07-2025 Bilirubin [Mass/Vol] 0.83 mg/dL 0.00-1.30 [facility] CBC-Complete Blood Cnt No Di ffon 01-07-2025 Erythrocyte distribution width (RBC) [Ratio] 12.9 % Normal 11.6-14.6 [facility] Comment on above: Order Comment: 107.1 Performed By: #### L 500.4050, L501.9985, L500.4100, L100.0500 #### [facility] [address] [place], [address] Hematocrit (Bld) [Volume fraction] 40.3 % Normal 40-54 [facility] Comment on above: Order Comment: 107.1 Performed By: #### L 500.4050, L501.9985, L500.4100, L100.0500 #### [facility] [address] [place], [address] Hemoglobin (Bld) [Mass/Vol] 13.9 g/dL Normal 13.0-16.5 [facility] Comment on above: Order Comment: 107.1 Performed By: #### L 500.4050, L501.9985, L500.4100, L100.0500 #### [facility] [address] [place], [address] MCH (RBC) [Entitic mass] 31.3 pg Normal 27.0-32.0 [facility] Comment on above: Order Comment: 107.1 Performed By: #### L 500.4050, L501.9985, L500.4100, L100.0500 #### [facility] [address] [place], [address] MCHC (RBC) [Mass/Vol] 34.5 g/dL Normal 32-36 [facility] Comment on above: Order Comment: 107.1 Performed By: #### L 500.4050, L501.9985, L500.4100, L100.0500 #### [facility] [address] [place], [address] MCV (RBC) [Entitic vol] 90.8 fL Normal 80-94 [facility] Comment on above: Order Comment: 107.1 Performed By: #### L 500.4050, L501.9985, L500.4100, L100.0500 #### [facility] [address] [place], [address] Platelet mean volume (Bld) [Entitic vol] 11.6 fL Normal 6.2-12.0 [facility] Comment on above: Order Comment: 107.1 Performed By: #### L 500.4050, L501.9985, L500.4100, L100.0500 #### [facility] [address] [place], [address] Platelets (Bld) [#/Vol] 121 10*3/uL Low 150-450 [facility] Comment on above: Order Comment: 107.1 Performed By: #### L 500.4050, L501.9985, L500.4100, L100.0500 #### [facility] [address] [place], [address] RBC (Bld) [#/Vol] 4.44 10*6/uL Low 4.6-6.2 [facility] Comment on above: Order Comment: 107.1 Performed By: #### L 500.4050, L501.9985, L500.4100, L100.0500 #### [facility] [address] [place], [address] RDW SD 41.9 fl Normal 35.1-43.9 [facility] Comment on above: Order Comment: 107.1 Performed By: #### L 500.4050, L501.9985, L500.4100, L100.0500 #### [facility] [address] [place], [address] WBC (Bld) [#/Vol] 6.3 10*3/uL Normal 4.4-11.0 [facility] Comment on above: Order Comment: 107.1 Performed By: #### L 500.4050, L501.9985, L500.4100, L100.0500 #### [facility] [address] [place], [address] Carbon dioxide, total [Moles /volume] in Central venous bloodOrdered By: Demetrius Fenton on 01-07-2025 CO2 [Moles/Vol] 24.5 mmol/L 21.0-32.0 [facility] Chloride assayOrdered By: Travis Finch on 01-07-2025 Chloride [Moles/Vol] 100 mmol/L 98-108 [facility] Comprehensive Metabolic Prof ilon 01-07-2025 Albumin [Mass/Vol] 3.7 g/dL Normal 3.4-4.8 [facility] Comment on above: Order Comment: 107.1 Performed By: #### L 500.4050, L501.9985, L500.4100, L100.0500 #### [facility] [address] [place], [address] Albumin/Globulin [Mass ratio] 1.6 {ratio} Normal 0.9-2.4 [facility] Comment on above: Order Comment: 107.1 Performed By: #### L 500.4050, L501.9985, L500.4100, L100.0500 #### [facility] [address] [place], [address] ALK PHOS 54 U/L Normal 40-129 [facility] Comment on above: Order Comment: 107.1 Performed By: #### L 500.4050, L501.9985, L500.4100, L100.0500 #### [facility] [address] [place], [address] ALT [Catalytic activity/Vol] 27 U/L Normal <=46 [facility] Comment on above: Order Comment: 107.1 Performed By: #### L 500.4050, L501.9985, L500.4100, L100.0500 #### [facility] [address] [place], [address] AST [Catalytic activity/Vol] 28 U/L Normal <=37 [facility] Comment on above: Order Comment: 107.1 Performed By: #### L 500.4050, L501.9985, L500.4100, L100.0500 #### [facility] [address] [place], [address] Bilirubin [Mass/Vol] 0.83 mg/dL Normal 0.00-1.30 [facility] Comment on above: Order Comment: 107.1 Performed By: #### L 500.4050, L501.9985, L500.4100, L100.0500 #### [facility] [address] [place], [address] BUN/CRE 11.6 RATIO Normal 10-20 [facility] Comment on above: Order Comment: 107.1 Performed By: #### L 500.4050, L501.9985, L500.4100, L100.0500 #### [facility] [address] [place], [address] Calcium [Mass/Vol] 9.1 mg/dL Normal 7.6-11.0 [facility] Comment on above: Order Comment: 107.1 Performed By: #### L 500.4050, L501.9985, L500.4100, L100.0500 #### [facility] [address] [place], [address] Chloride [Moles/Vol] 100 mmol/L Normal 98-108 [facility] Comment on above: Order Comment: 107.1 Performed By: #### L 500.4050, L501.9985, L500.4100, L100.0500 #### [facility] [address] [place], [address] CO2 [Moles/Vol] 24.5 mmol/L Normal 21.0-32.0 [facility] Comment on above: Order Comment: 107.1 Performed By: #### L 500.4050, L501.9985, L500.4100, L100.0500 #### [facility] [address] [place], [address] Creatinine [Mass/Vol] 1.06 mg/dL Normal 0.70-1.20 [facility] Comment on above: Order Comment: 107.1 Performed By: #### L 500.4050, L501.9985, L500.4100, L100.0500 #### [facility] [address] [place], [address] GAP 11 Normal 5-15 [facility] Comment on above: Order Comment: 107.1 Performed By: #### L 500.4050, L501.9985, L500.4100, L100.0500 #### [facility] [address] [place], [address] GFR/1.73 sq M.predicted among non-blacks MDRD (S/P/Bld) [Vol rate/Area] 79 mL/min/{1.73_m2} Normal >60 [facility] Comment on above: Order Comment: 107.1 Result Comment: mL/m in/1.73m2 CKD-EPI Creatinine Equation (2020) Performed By: #### L 500.4050, L501.9985, L500.4100, L100.0500 #### [facility] [address] [place], [address] Globulin (S) [Mass/Vol] 2.3 g/dL Normal 2.2-4.2 [facility] Comment on above: Order Comment: 107.1 Performed By: #### L 500.4050, L501.9985, L500.4100, L100.0500 #### [facility] [address] [place], [address] Glucose [Mass/Vol] 126 mg/dL High 70-99 [facility] Comment on above: Order Comment: 107.1 Performed By: #### L 500.4050, L501.9985, L500.4100, L100.0500 #### [facility] [address] [place], [address] Potassium [Moles/Vol] 4.6 mmol/L Normal 3.3-5.1 [facility] Comment on above: Order Comment: 107.1 Performed By: #### L 500.4050, L501.9985, L500.4100, L100.0500 #### [facility] [address] [place], [address] Sodium [Moles/Vol] 136 mmol/L Normal 133-145 [facility] Comment on above: Order Comment: 107.1 Performed By: #### L 500.4050, L501.9985, L500.4100, L100.0500 #### [facility] [address] [place], [address] T PROT 6.0 g/dL Normal 5.9-8.4 [facility] Comment on above: Order Comment: 107.1 Performed By: #### L 500.4050, L501.9985, L500.4100, L100.0500 #### [facility] [address] [place], [place], [address] Urea nitrogen [Mass/Vol] 12 mg/dL Normal 4-19 [facility] Comment on above: Order Comment: 107.1 Performed By: #### L 500.4050, L501.9918, L500.4100, L100.0500 #### [facility] [address] [place], [address] Erythrocyte distribution wid th ratioOrdered By: Demetrius Fenton on 01-07-2025 Erythrocyte distribution width (RBC) [Ratio] 12.9 % 11.6-14.6 [facility] Erythrocyte distribution wid th standard deviationOrdered By: Demetrius Fenton on 01-07-2025 Erythrocyte distribution width (RBC) [Ratio] 41.9 fl 35.1-43.9 [facility] Glomerular filtration rate ( GFR) estimation/1.73 sq m using serum, plasma, or whole bOrdered By: Demetrius Fenton on 01-07-2025 GFR/1.73 sq M.predicted among non-blacks MDRD (S/P/Bld) [Vol rate/Area] 79 mL/min/{1.73_m2} >60 [facility] Comment on above: mL/min/1.73m2 CKD-EP I Creatinine Equation (2020) Hematocrit Auto (Bld) [Volum e fraction]Ordered By: Demetrius Fenton on 01-07-2025 Hematocrit (Bld) [Volume fraction] 40.3 % 40-54 [facility] Hemoglobin measurementOrdere d By: Demetrius Fenton on 01-07-2025 Hemoglobin (Bld) [Mass/Vol] 13.9 g/dL 13.0-16.5 [facility] - Chemistry and C hemistry - challengeOrdered By: Demetrius Fenton on 01-07-2025 AST [Catalytic activity/Vol] 28 U/L <38 [facility] MCV (mean corpuscular volume ) determinationOrdered By: Demetrius Fenton on 01-07-2025 MCV (RBC) [Entitic vol] 90.8 fL 80-94 [facility] Mean corpuscular hemoglobin (MCH) determinationOrdered By: Demetrius Fenton on 01-07-2025 MCH (RBC) [Entitic mass] 31.3 pg 27.0-32.0 [facility] Mean corpuscular hemoglobin concentration (MCHC) determinationOrdered By: Demetrius Fenton on 01-07-2025 MCHC (RBC) [Mass/Vol] 34.5 g/dL 32-36 [facility] Mean platelet volume determi nationOrdered By: Demetrius Fenton on 01-07-2025 Platelet mean volume (Bld) [Entitic vol] 11.6 fL 6.2-12.0 [facility] Platelet countOrdered By: Travis Finch on 01-07-2025 Platelets (Bld) [#/Vol] 121 10*3/uL Low 150-450 [facility] Potassium measurement (mass/ volume)Ordered By: Demetrius Fenton on 01-07-2025 Potassium (Unsp spec) [Mass/Vol] 4.6 mmol/L 3.3-5.1 [facility] RBC Auto (Bld) [#/Vol]Ordere d By: Demetrius Fenton on 01-07-2025 RBC (Bld) [#/Vol] 4.44 10*6/uL Low 4.6-6.2 [facility] Serum creatinine measurement (mass/volume)Ordered By: Demetrius Fenton on 01-07-2025 Creatinine [Mass/Vol] 1.06 mg/dL 0.70-1.20 [facility] Serum globulin measurementOr dered By: Demetrius Fenton on 01-07-2025 Globulin (S) [Mass/Vol] 2.3 g/dL 2.2-4.2 [facility] Serum glucose measurement (m ass/volume)Ordered By: Demetrius Fenton on 01-07-2025 Glucose [Mass/Vol] 126 mg/dL High 70-99 [facility] Serum or plasma alanine joy otransferase (ALT) measurementOrdered By: Demetrius Fenton on 01-07-2025 ALT [Catalytic activity/Vol] 27 U/L <47 [facility] Serum or plasma albumin roseanne urement (mass/volume)Ordered By: Demetrius Fenton on 01-07-2025 Albumin [Mass/Vol] 3.7 g/dL 3.4-4.8 [facility] Serum or plasma albumin/glob ulin mass ratioOrdered By: Demetrius Fenton on 01-07-2025 Albumin/Globulin [Mass ratio] 1.6 {ratio} 0.9-2.4 [facility] Serum or plasma alkaline elsie sphatase measurementOrdered By: Demetrius Fenton on 01-07-2025 ALP [Catalytic activity/Vol] 54 U/L 40-129 [facility] Serum or plasma calcium roseanne urement (mass/volume)Ordered By: Demetrius Fenton on 01-07-2025 Calcium [Mass/Vol] 9.1 mg/dL 7.6-11.0 [facility] Serum or plasma urea nitroge n measurement (mass/volume)Ordered By: Demetrius Fenton on 01-07-2025 Urea nitrogen [Mass/Vol] 12 mg/dL 4-19 [facility] Serum or plasma valproate me asurement (mass/volume)Ordered By: Demetrius Fenton on 01-07-2025 Valproate [Mass/Vol] 37 ug/mL Low 50-100 [facility] Comment on above: Valproic Acid concen trations >100 ug/mL are potentially toxic. Sodium levelOrdered By: Angel Fenton on 01-07-2025 Sodium [Moles/Vol] 136 mmol/L 133-145 [facility] Total proteinOrdered By: Miriam Fenton on 01-07-2025 Protein [Mass/Vol] 6.0 g/dL 5.9-8.4 [facility] Valproic Acid (Depakene) Lev alison 01-07-2025 VALPROIC ACID 37 ug/mL Low 50-100 [facility] Comment on above: Order Comment: 107.1 Result Comment: Valp roic Acid concentrations >100 ug/mL are potentially toxic. Performed By: #### L 500.4052, L501.9995, L500.7590, L100.0500 #### [facility] [address] [place], [address] White blood cell (WBC) count Ordered By: Demetrius Fenton on 01-07-2025 WBC (Bld) [#/Vol] 6.3 10*3/uL 4.4-11.0 [facility] Serum or plasma valproate me asurement (mass/volume)Ordered By: Demetrius Fenton on 12-10-2024 Valproate [Mass/Vol] 59 ug/mL 50-100 [facility] Comment on above: Valproic Acid concen trations >100 ug/mL are potentially toxic. Valproic Acid (Depakene) Lev alison 12-10-2024 VALPROIC ACID 59 ug/mL Normal 50-100 [facility] Comment on above: Order Comment: 107.1 Result Comment: Valp roic Acid concentrations >100 ug/mL are potentially toxic. Performed By: #### L 501.8100 #### [facility] [address] [place], [address] Anion gap in Serum or Plasma Ordered By: Demetrius Fenton on 12-05-2024 Anion gap [Moles/Vol] 14 mmol/L 5-15 [facility] BUN/creatinine ratioOrdered By: Demetrius Fenton on 12-05-2024 Urea nitrogen/Creatinine [Mass ratio] 15.8 mg/mg 10-20 [facility] Basic Metabolic Profile (BMP )on 12-05-2024 BUN/CRE 15.8 RATIO Normal -20 [facility] Comment on above: Order Comment: 107.1 Performed By: #### L 500.4050, L501.9985, L500.4100, L100.0500 #### [facility] [address] [place], [address] Calcium [Mass/Vol] 9.2 mg/dL Normal 7.6-11.0 [facility] Comment on above: Order Comment: 107.1 Performed By: #### L 500.4050, L501.9985, L500.4100, L100.0500 #### [facility] [address] [place], [address] Chloride [Moles/Vol] 100 mmol/L Normal 98-108 [facility] Comment on above: Order Comment: 107.1 Performed By: #### L 500.4050, L501.9985, L500.4100, L100.0500 #### [facility] [address] [place], [address] CO2 [Moles/Vol] 22.8 mmol/L Normal 21.0-32.0 [facility] Comment on above: Order Comment: 107.1 Performed By: #### L 500.4050, L501.9985, L500.4100, L100.0500 #### [facility] [address] [place], [address] Creatinine [Mass/Vol] 1.11 mg/dL Normal 0.70-1.20 [facility] Comment on above: Order Comment: 107.1 Performed By: #### L 500.4050, L501.9985, L500.4100, L100.0500 #### [facility] [address] [place], [address] GAP 14 Normal 5-15 [facility] Comment on above: Order Comment: 107.1 Performed By: #### L 500.4050, L501.9985, L500.4100, L100.0500 #### [facility] [address] [place], [address] GFR/1.73 sq M.predicted among non-blacks MDRD (S/P/Bld) [Vol rate/Area] 75 mL/min/{1.73_m2} Normal >60 [facility] Comment on above: Order Comment: 107.1 Result Comment: mL/m in/1.73m2 CKD-EPI Creatinine Equation (2020) Performed By: #### L 500.4050, L501.9985, L500.4100, L100.0500 #### [facility] [address] [place], [address] Glucose [Mass/Vol] 144 mg/dL High 70-99 [facility] Comment on above: Order Comment: 107.1 Performed By: #### L 500.4050, L501.9985, L500.4100, L100.0500 #### [facility] [address] [place], [address] Potassium [Moles/Vol] 4.7 mmol/L Normal 3.3-5.1 [facility] Comment on above: Order Comment: 107.1 Performed By: #### L 500.4050, L501.9985, L500.4100, L100.0500 #### [facility] [address] [place], [address] Sodium [Moles/Vol] 136 mmol/L Normal 133-145 [facility] Comment on above: Order Comment: 107.1 Performed By: #### L 500.4050, L501.9985, L500.4100, L100.0500 #### [facility] [address] [place], [address] Urea nitrogen [Mass/Vol] 18 mg/dL Normal 4-19 [facility] Comment on above: Order Comment: 107.1 Performed By: #### L 500.4050, L501.9985, L500.4100, L100.0500 #### [facility] [address] [place], [address] CBC-Complete Blood Cnt No Di ffon 12-05-2024 Erythrocyte distribution width (RBC) [Ratio] 12.5 % Normal 11.6-14.6 [facility] Comment on above: Order Comment: 107.1 Performed By: #### L 500.4050, L501.9985, L500.4100, L100.0500 #### [facility] [address] [place], [address] Hematocrit (Bld) [Volume fraction] 42.6 % Normal 40-54 [facility] Comment on above: Order Comment: 107.1 Performed By: #### L 500.4050, L501.9985, L500.4100, L100.0500 #### [facility] [address] [place], [address] Hemoglobin (Bld) [Mass/Vol] 15.0 g/dL Normal 13.0-16.5 [facility] Comment on above: Order Comment: 107.1 Performed By: #### L 500.4050, L501.9985, L500.4100, L100.0500 #### [facility] [address] [place], [address] MCH (RBC) [Entitic mass] 31.3 pg Normal 27.0-32.0 [facility] Comment on above: Order Comment: 107.1 Performed By: #### L 500.4050, L501.9985, L500.4100, L100.0500 #### [facility] [address] [place], [address] MCHC (RBC) [Mass/Vol] 35.2 g/dL Normal 32-36 [facility] Comment on above: Order Comment: 107.1 Performed By: #### L 500.4050, L501.9985, L500.4100, L100.0500 #### [facility] [address] [place], [address] MCV (RBC) [Entitic vol] 88.8 fL Normal 80-94 [facility] Comment on above: Order Comment: 107.1 Performed By: #### L 500.4050, L501.9985, L500.4100, L100.0500 #### [facility] [address] [place], [address] Platelet mean volume (Bld) [Entitic vol] 11.2 fL Normal 6.2-12.0 [facility] Comment on above: Order Comment: 107.1 Performed By: #### L 500.4050, L501.9985, L500.4100, L100.0500 #### [facility] [address] [place], [address] Platelets (Bld) [#/Vol] 117 10*3/uL Low 150-450 [facility] Comment on above: Order Comment: 107.1 Performed By: #### L 500.4050, L501.9985, L500.4100, L100.0500 #### [facility] [address] [place], [address] RBC (Bld) [#/Vol] 4.80 10*6/uL Normal 4.6-6.2 [facility] Comment on above: Order Comment: 107.1 Performed By: #### L 500.4050, L501.9985, L500.4100, L100.0500 #### [facility] [address] [place], [address] RDW SD 40.2 fl Normal 35.1-43.9 [facility] Comment on above: Order Comment: 107.1 Performed By: #### L 500.4050, L501.9985, L500.4100, L100.0500 #### [facility] [address] [place], [address] WBC (Bld) [#/Vol] 7.8 10*3/uL Normal 4.4-11.0 [facility] Comment on above: Order Comment: 107.1 Performed By: #### L 500.4050, L501.9985, L500.4100, L100.0500 #### [facility] [address] [place], [address] Carbon dioxide, total [Moles /volume] in Central venous bloodOrdered By: Demetrius Fenton on 12-05-2024 CO2 [Moles/Vol] 22.8 mmol/L 21.0-32.0 [facility] Chloride assayOrdered By: Travis Finch on 12-05-2024 Chloride [Moles/Vol] 100 mmol/L 98-108 [facility] Erythrocyte distribution wid th ratioOrdered By: Demetrius Fenton on 12-05-2024 Erythrocyte distribution width (RBC) [Ratio] 12.5 % 11.6-14.6 [facility] Erythrocyte distribution wid th standard deviationOrdered By: Demetrius Fenton on 12-05-2024 Erythrocyte distribution width (RBC) [Ratio] 40.2 fl 35.1-43.9 [facility] Glomerular filtration rate ( GFR) estimation/1.73 sq m using serum, plasma, or whole bOrdered By: Demetrius Fenton on 12-05-2024 GFR/1.73 sq M.predicted among non-blacks MDRD (S/P/Bld) [Vol rate/Area] 75 mL/min/{1.73_m2} >60 [facility] Comment on above: mL/min/1.73m2 CKD-EP I Creatinine Equation (2020) Hematocrit Auto (Bld) [Volum e fraction]Ordered By: Demetrius Fenton on 12-05-2024 Hematocrit (Bld) [Volume fraction] 42.6 % 40-54 [facility] Hemoglobin measurementOrdere d By: Demetrius Fenton on 12-05-2024 Hemoglobin (Bld) [Mass/Vol] 15.0 g/dL 13.0-16.5 [facility] MCV (mean corpuscular volume ) determinationOrdered By: Demetrius Fenton on 12-05-2024 MCV (RBC) [Entitic vol] 88.8 fL 80-94 [facility] Mean corpuscular hemoglobin (MCH) determinationOrdered By: Demetrius Fenton on 12-05-2024 MCH (RBC) [Entitic mass] 31.3 pg 27.0-32.0 [facility] Mean corpuscular hemoglobin concentration (MCHC) determinationOrdered By: Demetrius Fenton on 12-05-2024 MCHC (RBC) [Mass/Vol] 35.2 g/dL 32-36 [facility] Mean platelet volume determi nationOrdered By: Demetrius Fenton on 12-05-2024 Platelet mean volume (Bld) [Entitic vol] 11.2 fL 6.2-12.0 [facility] Platelet countOrdered By: Travis Finch on 12-05-2024 Platelets (Bld) [#/Vol] 117 10*3/uL Low 150-450 [facility] Potassium measurement (mass/ volume)Ordered By: Demetrius Fenton on 12-05-2024 Potassium (Unsp spec) [Mass/Vol] 4.7 mmol/L 3.3-5.1 [facility] RBC Auto (Bld) [#/Vol]Ordere d By: Demetrius Fenton on 12-05-2024 RBC (Bld) [#/Vol] 4.80 10*6/uL 4.6-6.2 [facility] Serum creatinine measurement (mass/volume)Ordered By: Demetrius Fenton on 12-05-2024 Creatinine [Mass/Vol] 1.11 mg/dL 0.70-1.20 [facility] Serum glucose measurement (m ass/volume)Ordered By: Demetrius Fenton on 12-05-2024 Glucose [Mass/Vol] 144 mg/dL High 70-99 [facility] Serum or plasma calcium roseanne urement (mass/volume)Ordered By: Demetrius Fenton on 12-05-2024 Calcium [Mass/Vol] 9.2 mg/dL 7.6-11.0 [facility] Serum or plasma urea nitroge n measurement (mass/volume)Ordered By: Demetrius Fenton on 12-05-2024 Urea nitrogen [Mass/Vol] 18 mg/dL 4-19 [facility] Sodium levelOrdered By: Angel Fenton on 12-05-2024 Sodium [Moles/Vol] 136 mmol/L 133-145 [facility] White blood cell (WBC) count Ordered By: Demetrius Fenton on 12-05-2024 WBC (Bld) [#/Vol] 7.8 10*3/uL 4.4-11.0 [facility] Anion gap in Serum or Plasma Ordered By: Gunnar Cummings on 10-21-2024 Anion gap [Moles/Vol] 15 mmol/L 5- [facility] BUN/creatinine ratioOrdered By: Gunnar Cummings on 10-21-2024 Urea nitrogen/Creatinine [Mass ratio] 14.2 mg/mg 10- [facility] Basic Metabolic Profile (BMP )on 10-21-2024 BUN/CRE 14.2 RATIO Normal - [facility] Comment on above: Order Comment: 107.1 Performed By: #### L 500.4050, L501.9985, L500.4100, L100.0500 #### [facility] [address] [place], [address] Calcium [Mass/Vol] 9.3 mg/dL Normal 7.6-11.0 [facility] Comment on above: Order Comment: 107.1 Performed By: #### L 500.4050, L501.9985, L500.4100, L100.0500 #### [facility] [address] [place], [address] Chloride [Moles/Vol] 100 mmol/L Normal 98-108 [facility] Comment on above: Order Comment: 107.1 Performed By: #### L 500.4050, L501.9985, L500.4100, L100.0500 #### [facility] [address] [place], [address] CO2 [Moles/Vol] 21.7 mmol/L Normal 21.0-32.0 [facility] Comment on above: Order Comment: 107.1 Performed By: #### L 500.4050, L501.9985, L500.4100, L100.0500 #### [facility] [address] [place], [address] Creatinine [Mass/Vol] 1.07 mg/dL Normal 0.70-1.20 [facility] Comment on above: Order Comment: 107.1 Performed By: #### L 500.4050, L501.9985, L500.4100, L100.0500 #### [facility] [address] [place], [address] GAP 15 Normal 5-15 [facility] Comment on above: Order Comment: 107.1 Performed By: #### L 500.4050, L501.9985, L500.4100, L100.0500 #### [facility] [address] [place], [address] GFR/1.73 sq M.predicted among non-blacks MDRD (S/P/Bld) [Vol rate/Area] 79 mL/min/{1.73_m2} Normal >60 [facility] Comment on above: Order Comment: 107.1 Result Comment: mL/m in/1.73m2 CKD-EPI Creatinine Equation (2020) Performed By: #### L 500.4050, L501.9985, L500.4100, L100.0500 #### [facility] [address] [place], [address] Glucose [Mass/Vol] 117 mg/dL High 70-99 [facility] Comment on above: Order Comment: 107.1 Performed By: #### L 500.4050, L501.9985, L500.4100, L100.0500 #### [facility] [address] [place], [address] Potassium [Moles/Vol] 4.7 mmol/L Normal 3.3-5.1 [facility] Comment on above: Order Comment: 107.1 Performed By: #### L 500.4050, L501.9985, L500.4100, L100.0500 #### [facility] [address] [place], [address] Sodium [Moles/Vol] 137 mmol/L Normal 133-145 [facility] Comment on above: Order Comment: 107.1 Performed By: #### L 500.4050, L501.9985, L500.4100, L100.0500 #### [facility] [address] [place], [address] Urea nitrogen [Mass/Vol] 15 mg/dL Normal 4-19 [facility] Comment on above: Order Comment: 107.1 Performed By: #### L 500.4050, L501.9985, L500.4100, L100.0500 #### [facility] [address] [place], [address] CBC-Complete Blood Cnt No Di ffon 10-21-2024 Erythrocyte distribution width (RBC) [Ratio] 12.9 % Normal 11.6-14.6 [facility] Comment on above: Order Comment: 107.1 Performed By: #### L 500.4050, L501.9985, L500.4100, L100.0500 #### [facility] [address] [place], [address] Hematocrit (Bld) [Volume fraction] 41.9 % Normal 40-54 [facility] Comment on above: Order Comment: 107.1 Performed By: #### L 500.4050, L501.9985, L500.4100, L100.0500 #### [facility] [address] [place], [address] Hemoglobin (Bld) [Mass/Vol] 14.3 g/dL Normal 13.0-16.5 [facility] Comment on above: Order Comment: 107.1 Performed By: #### L 500.4050, L501.9985, L500.4100, L100.0500 #### [facility] [address] [place], [address] MCH (RBC) [Entitic mass] 31.6 pg Normal 27.0-32.0 [facility] Comment on above: Order Comment: 107.1 Performed By: #### L 500.4050, L501.9985, L500.4100, L100.0500 #### [facility] [address] [place], [address] MCHC (RBC) [Mass/Vol] 34.1 g/dL Normal 32-36 [facility] Comment on above: Order Comment: 107.1 Performed By: #### L 500.4050, L501.9985, L500.4100, L100.0500 #### [facility] [address] [place], [address] MCV (RBC) [Entitic vol] 92.5 fL Normal 80-94 [facility] Comment on above: Order Comment: 107.1 Performed By: #### L 500.4050, L501.9985, L500.4100, L100.0500 #### [facility] [address] [place], [address] Platelet mean volume (Bld) [Entitic vol] 11.3 fL Normal 6.2-12.0 [facility] Comment on above: Order Comment: 107.1 Performed By: #### L 500.4050, L501.9985, L500.4100, L100.0500 #### [facility] [address] [place], [address] Platelets (Bld) [#/Vol] 131 10*3/uL Low 150-450 [facility] Comment on above: Order Comment: 107.1 Performed By: #### L 500.4050, L501.9985, L500.4100, L100.0500 #### [facility] [address] [place], [address] RBC (Bld) [#/Vol] 4.53 10*6/uL Low 4.6-6.2 [facility] Comment on above: Order Comment: 107.1 Performed By: #### L 500.4050, L501.9985, L500.4100, L100.0500 #### [facility] [address] [place], [address] RDW SD 42.5 fl Normal 35.1-43.9 [facility] Comment on above: Order Comment: 107.1 Performed By: #### L 500.4050, L501.9985, L500.4100, L100.0500 #### [facility] [address] [place], [address] WBC (Bld) [#/Vol] 8.9 10*3/uL Normal 4.4-11.0 [facility] Comment on above: Order Comment: 107.1 Performed By: #### L 500.4050, L501.9933, L500.4100, L100.0500 #### [facility] [address] [place], [address] Carbon dioxide, total [Moles /volume] in Central venous bloodOrdered By: Gunnar Cummings on 10-21-2024 CO2 [Moles/Vol] 21.7 mmol/L 21.0-32.0 [facility] Chloride assayOrdered By: Sosa Cummings on 10-21-2024 Chloride [Moles/Vol] 100 mmol/L 98-108 [facility] Erythrocyte distribution wid th ratioOrdered By: Gunnar Cummings on 10-21-2024 Erythrocyte distribution width (RBC) [Ratio] 12.9 % 11.6-14.6 [facility] Erythrocyte distribution wid th standard deviationOrdered By: Gunnar Cummings on 10-21-2024 Erythrocyte distribution width (RBC) [Ratio] 42.5 fl 35.1-43.9 [facility] Glomerular filtration rate ( GFR) estimation/1.73 sq m using serum, plasma, or whole bOrdered By: Gunnar Cummings on 10-21-2024 GFR/1.73 sq M.predicted among non-blacks MDRD (S/P/Bld) [Vol rate/Area] 79 mL/min/{1.73_m2} >60 [facility] Comment on above: mL/min/1.73m2 CKD-EP I Creatinine Equation (2020) Hematocrit Auto (Bld) [Volum e fraction]Ordered By: Gunnar Cummings on 10-21-2024 Hematocrit (Bld) [Volume fraction] 41.9 % 40-54 [facility] Hemoglobin measurementOrdere d By: Gunnar Cummings on 10-21-2024 Hemoglobin (Bld) [Mass/Vol] 14.3 g/dL 13.0-16.5 [facility] MCV (mean corpuscular volume ) determinationOrdered By: Gunnar Cummings 10-21-2024 MCV (RBC) [Entitic vol] 92.5 fL 80-94 [facility] Mean corpuscular hemoglobin (MCH) determinationOrdered By: Gunnar Cummings on 10-21-2024 MCH (RBC) [Entitic mass] 31.6 pg 27.0-32.0 [facility] Mean corpuscular hemoglobin concentration (MCHC) determinationOrdered By: Gunnar Cummings on 10-21-2024 MCHC (RBC) [Mass/Vol] 34.1 g/dL 32-36 [facility] Mean platelet volume determi nationOrdered By: Gunnar Cummings on 10-21-2024 Platelet mean volume (Bld) [Entitic vol] 11.3 fL 6.2-12.0 [facility] Platelet countOrdered By: Sosa Cummings on 10-21-2024 Platelets (Bld) [#/Vol] 131 10*3/uL Low 150-450 [facility] Potassium measurement (mass/ volume)Ordered By: Gunnar Cummings on 10-21-2024 Potassium (Unsp spec) [Mass/Vol] 4.7 mmol/L 3.3-5.1 [facility] RBC Auto (Bld) [#/Vol]Ordere d By: Gunnar Cummings on 10-21-2024 RBC (Bld) [#/Vol] 4.53 10*6/uL Low 4.6-6.2 [facility] Serum creatinine measurement (mass/volume)Ordered By: Gunnar Cummings on 10-21-2024 Creatinine [Mass/Vol] 1.07 mg/dL 0.70-1.20 [facility] Serum glucose measurement (m ass/volume)Ordered By: Gunnar Cummings on 10-21-2024 Glucose [Mass/Vol] 117 mg/dL High 70-99 [facility] Serum or plasma calcium roseanne urement (mass/volume)Ordered By: Gunnar Cummings on 10-21-2024 Calcium [Mass/Vol] 9.3 mg/dL 7.6-11.0 [facility] Serum or plasma urea nitroge n measurement (mass/volume)Ordered By: Gunnar Cummings on 10-21-2024 Urea nitrogen [Mass/Vol] 15 mg/dL 4-19 [facility] Sodium levelOrdered By: José Miguel Cummings on 10-21-2024 Sodium [Moles/Vol] 137 mmol/L 133-145 [facility] White blood cell (WBC) count Ordered By: Gunnar Cummings on 10-21-2024 WBC (Bld) [#/Vol] 8.9 10*3/uL 4.4-11.0 [facility] CBC-Complete Blood Cnt No Di ffon 09-20-2024 Erythrocyte distribution width (RBC) [Ratio] 12.9 % Normal 11.6-14.6 [facility] Comment on above: Order Comment: 107-1 Performed By: #### L 500.4050, L501.9985, L500.4100, L100.0500 #### [facility] [address] [place], [address] Hematocrit (Bld) [Volume fraction] 40.0 % Normal 40-54 [facility] Comment on above: Order Comment: 107-1 Performed By: #### L 500.4050, L501.9985, L500.4100, L100.0500 #### [facility] [address] [place], [address] Hemoglobin (Bld) [Mass/Vol] 13.8 g/dL Normal 13.0-16.5 [facility] Comment on above: Order Comment: 107-1 Performed By: #### L 500.4050, L501.9985, L500.4100, L100.0500 #### [facility] [address] [place], [address] MCH (RBC) [Entitic mass] 31.6 pg Normal 27.0-32.0 [facility] Comment on above: Order Comment: 107-1 Performed By: #### L 500.4050, L501.9985, L500.4100, L100.0500 #### [facility] [address] [place], [address] MCHC (RBC) [Mass/Vol] 34.5 g/dL Normal 32-36 [facility] Comment on above: Order Comment: 107-1 Performed By: #### L 500.4050, L501.9985, L500.4100, L100.0500 #### [facility] [address] [place], [address] MCV (RBC) [Entitic vol] 91.5 fL Normal 80-94 [facility] Comment on above: Order Comment: 107-1 Performed By: #### L 500.4050, L501.9985, L500.4100, L100.0500 #### [facility] [address] [place], [address] Platelet mean volume (Bld) [Entitic vol] 10.7 fL Normal 6.2-12.0 [facility] Comment on above: Order Comment: 107-1 Performed By: #### L 500.4050, L501.9985, L500.4100, L100.0500 #### [facility] [address] [place], [address] Platelets (Bld) [#/Vol] 118 10*3/uL Low 150-450 [facility] Comment on above: Order Comment: 107-1 Performed By: #### L 500.4050, L501.9985, L500.4100, L100.0500 #### [facility] [address] [place], [address] RBC (Bld) [#/Vol] 4.37 10*6/uL Low 4.6-6.2 [facility] Comment on above: Order Comment: 107-1 Performed By: #### L 500.4050, L501.9985, L500.4100, L100.0500 #### [facility] [address] [place], [address] RDW SD 41.6 fl Normal 35.1-43.9 [facility] Comment on above: Order Comment: 107-1 Performed By: #### L 500.4050, L501.9985, L500.4100, L100.0500 #### [facility] [address] [place], [address] WBC (Bld) [#/Vol] 7.0 10*3/uL Normal 4.4-11.0 [facility] Comment on above: Order Comment: 107-1 Performed By: #### L 500.4050, L501.9985, L500.4100, L100.0500 #### [facility] [address] [place], [address] Comprehensive Metabolic Prof ilon 09-20-2024 Albumin [Mass/Vol] 3.6 g/dL Normal 3.4-4.8 [facility] Comment on above: Order Comment: 107-1 Performed By: #### L 500.4050, L501.9985, L500.4100, L100.0500 #### [facility] [address] [place], [address] Albumin/Globulin [Mass ratio] 1.5 {ratio} Normal 0.9-2.4 [facility] Comment on above: Order Comment: 107-1 Performed By: #### L 500.4050, L501.9985, L500.4100, L100.0500 #### [facility] [address] [place], [address] ALK PHOS 60 U/L Normal 40-129 [facility] Comment on above: Order Comment: 107-1 Performed By: #### L 500.4050, L501.9985, L500.4100, L100.0500 #### [facility] [address] [place], [address] ALT [Catalytic activity/Vol] 30 U/L Normal <=46 [facility] Comment on above: Order Comment: 107-1 Performed By: #### L 500.4050, L501.9985, L500.4100, L100.0500 #### [facility] [address] [place], [address] AST [Catalytic activity/Vol] 31 U/L Normal <=37 [facility] Comment on above: Order Comment: 107-1 Performed By: #### L 500.4050, L501.9985, L500.4100, L100.0500 #### [facility] [address] [place], [address] Bilirubin [Mass/Vol] 0.68 mg/dL Normal 0.00-1.30 [facility] Comment on above: Order Comment: 107-1 Performed By: #### L 500.4050, L501.9985, L500.4100, L100.0500 #### [facility] [address] [place], [address] BUN/CRE 16.6 RATIO Normal 10-20 [facility] Comment on above: Order Comment: 107-1 Performed By: #### L 500.4050, L501.9985, L500.4100, L100.0500 #### [facility] [address] [place], [address] Calcium [Mass/Vol] 9.1 mg/dL Normal 7.6-11.0 [facility] Comment on above: Order Comment: 107-1 Performed By: #### L 500.4050, L501.9985, L500.4100, L100.0500 #### [facility] [address] [place], [address] Chloride [Moles/Vol] 101 mmol/L Normal 98-108 [facility] Comment on above: Order Comment: 107-1 Performed By: #### L 500.4050, L501.9985, L500.4100, L100.0500 #### [facility] [address] [place], [address] CO2 [Moles/Vol] 25.7 mmol/L Normal 21.0-32.0 [facility] Comment on above: Order Comment: 107-1 Performed By: #### L 500.4050, L501.9985, L500.4100, L100.0500 #### [facility] [address] [place], [address] Creatinine [Mass/Vol] 1.16 mg/dL Normal 0.70-1.20 [facility] Comment on above: Order Comment: 107-1 Performed By: #### L 500.4050, L501.9985, L500.4100, L100.0500 #### [facility] [address] [place], [address] GAP 10 Normal 5-15 [facility] Comment on above: Order Comment: 107-1 Performed By: #### L 500.4050, L501.9985, L500.4100, L100.0500 #### [facility] [address] [place], [address] GFR/1.73 sq M.predicted among non-blacks MDRD (S/P/Bld) [Vol rate/Area] 72 mL/min/{1.73_m2} Normal >60 [facility] Comment on above: Order Comment: 107-1 Result Comment: mL/m in/1.73m2 CKD-EPI Creatinine Equation (2020) Performed By: #### L 500.4050, L501.9985, L500.4100, L100.0500 #### [facility] [address] [place], [address] Globulin (S) [Mass/Vol] 2.4 g/dL Normal 2.2-4.2 [facility] Comment on above: Order Comment: 107-1 Performed By: #### L 500.4050, L501.9985, L500.4100, L100.0500 #### [facility] [address] [place], [address] Glucose [Mass/Vol] 125 mg/dL High 70-99 [facility] Comment on above: Order Comment: 107-1 Performed By: #### L 500.4050, L501.9985, L500.4100, L100.0500 #### [facility] [address] [place], [address] Potassium [Moles/Vol] 4.4 mmol/L Normal 3.3-5.1 [facility] Comment on above: Order Comment: 107-1 Performed By: #### L 500.4050, L501.9985, L500.4100, L100.0500 #### [facility] [address] [place], [address] Sodium [Moles/Vol] 137 mmol/L Normal 133-145 [facility] Comment on above: Order Comment: 107-1 Performed By: #### L 500.4050, L501.9985, L500.4100, L100.0500 #### [facility] [address] [place], [address] T PROT 6.0 g/dL Normal 5.9-8.4 [facility] Comment on above: Order Comment: 107-1 Performed By: #### L 500.4050, L501.9985, L500.4100, L100.0500 #### [facility] [address] [place], [address] Urea nitrogen [Mass/Vol] 19 mg/dL Normal 4-19 [facility] Comment on above: Order Comment: 107-1 Performed By: #### L 500.4050, L501.9985, L500.4100, L100.0500 #### [facility] [address] [place], [address] Hemoglobin A1con 09-20-2024 HbA1c (Bld) [Mass fraction] 6.9 % High <=5.6 [facility] Comment on above: Order Comment: 107-1 Result Comment: Norm al < 5.7 % Prediabetic 5.7 - 6.4 % Diabetic >or= 6.5 % Please note range changes. Performed By: #### L 500.4050, L501.9985, L500.4100, L100.0500 #### [facility] [address] [place], [address] Lipid Profileon 09-20-2024 CHOL:HDL 2.73 Normal [facility] Comment on above: Order Comment: 107-1 Performed By: #### L 500.4050, L501.9985, L500.4100, L100.0500 #### [facility] [address] [place], [address] Cholesterol [Mass/Vol] 106 mg/dL Normal <=200 [facility] Comment on above: Order Comment: 107-1 Result Comment: Chol esterol level, Desirable <200 mg/dL Borderline high cholesterol 200-239 mg/dL High cholesterol >=240 mg/dL Recommendations of the NCEP Adult Treatment Panel for the following risk-cutoff thresholds for the [place] population. Performed By: #### L 500.4050, L501.9985, L500.4100, L100.0500 #### [facility] [address] [place], [address] Cholesterol in HDL [Mass/Vol] 39 mg/dL Low [facility] Comment on above: Order Comment: 107-1 Result Comment: Jen onal Cholesterol Education Program (NCEP) guidelines: <40 mg/dL: Low HDL-cholesterol (major risk factor for CHD) >= 60 mg/dL: High HDL-cholesterol (negative risk factor for CHD) HDL-cholesterol is affected by a number of factors, e.g. smoking, exercise, hormones, sex and age. Performed By: #### L 500.4050, L501.9985, L500.4100, L100.0500 #### [facility] [address] [place], [address] Cholesterol in LDL [Mass/Vol] 46 mg/dL Normal [facility] Comment on above: Order Comment: 107-1 Result Comment: Bord mnjiny=657-624 mg/dL Higher Uwqc=786 mg/dL or greater Performed By: #### L 500.4050, L501.9985, L500.4100, L100.0500 #### [facility] [address] [place], [address] Cholesterol in VLDL [Mass/Vol] 22 mg/dL Normal 5-40 [facility] Comment on above: Order Comment: 107-1 Performed By: #### L 500.4050, L501.9985, L500.4100, L100.0500 #### [facility] [address] [place], [address] Triglyceride [Mass/Vol] 108 mg/dL Normal [facility] Comment on above: Order Comment: 107-1 Result Comment: The drugs N-Acetylcysteine and Metamizole may falsely depress this assay. Normal range: <150 mg/dL Borderline High: 150-199 mg/dL High: 200-499 mg/dL Very High: >500 mg/dL Performed By: #### L 500.4050, L501.9985, L500.4100, L100.0500 #### [facility] [address] [place], [address] Serum or plasma valproate me asurement (mass/volume)Ordered By: Demetrius Fenton on 07-29-2024 Valproate [Mass/Vol] 57 ug/mL 50-100 [facility] Comment on above: Valproic Acid concen trations >100 ug/mL are potentially toxic. Valproic Acid (Depakene) Lev alison 07-29-2024 VALPROIC ACID 57 ug/mL Normal 50-100 [facility] Comment on above: Order Comment: 107.1 Result Comment: Valp roic Acid concentrations >100 ug/mL are potentially toxic. Performed By: #### L 501.8100 #### [facility] [address] [place], [address] Anion gap in Serum or Plasma Ordered By: Demetrius Fenton on 07-22-2024 Anion gap [Moles/Vol] 14 mmol/L 08-22 [facility] BUN/creatinine ratioOrdered By: Demetrius Fenton on 07-22-2024 Urea nitrogen/Creatinine [Mass ratio] 11.2 mg/mg 01-27 [facility] Basic Metabolic Profile (BMP )on 07-22-2024 BUN/CRE 11.2 RATIO Normal 01-27 [facility] Comment on above: Order Comment: 107.1 Performed By: #### L 100.0500, L500.2500 #### [facility] [address] [place], [address] Calcium [Mass/Vol] 9.1 mg/dL Normal 7.6-11.0 [facility] Comment on above: Order Comment: 107.1 Performed By: #### L 100.0500, L500.2500 #### [facility] [address] [place], [address] Chloride [Moles/Vol] 97 mmol/L Low 98-108 [facility] Comment on above: Order Comment: 107.1 Performed By: #### L 100.0500, L500.2500 #### [facility] [address] [place], [address] CO2 [Moles/Vol] 21.4 mmol/L Normal 21.0-32.0 [facility] Comment on above: Order Comment: 107.1 Performed By: #### L 100.0500, L500.2500 #### [facility] [address] [place], [address] Creatinine [Mass/Vol] 1.20 mg/dL Normal 0.70-1.20 [facility] Comment on above: Order Comment: 107.1 Performed By: #### L 100.0500, L500.2500 #### [facility] [address] [place], [address] GAP 14 Normal 08-22 [facility] Comment on above: Order Comment: 107.1 Performed By: #### L 100.0500, L500.2500 #### [facility] [address] [place], [address] GFR/1.73 sq M.predicted among non-blacks MDRD (S/P/Bld) [Vol rate/Area] 69 mL/min/{1.73_m2} Normal >60 [facility] Comment on above: Order Comment: 107.1 Result Comment: mL/m in/1.73m2 CKD-EPI Creatinine Equation (2020) Performed By: #### L 100.0500, L500.2500 #### [facility] [address] [place], [address] Glucose [Mass/Vol] 184 mg/dL High 70-99 [facility] Comment on above: Order Comment: 107.1 Performed By: #### L 100.0500, L500.2500 #### [facility] [address] [place], [address] Potassium [Moles/Vol] 4.4 mmol/L Normal 3.3-5.1 [facility] Comment on above: Order Comment: 107.1 Performed By: #### L 100.0500, L500.2500 #### [facility] [address] [place], [address] Sodium [Moles/Vol] 132 mmol/L Low 133-145 [facility] Comment on above: Order Comment: 107.1 Performed By: #### L 100.0500, L500.2500 #### [facility] [address] [place], [address] Urea nitrogen [Mass/Vol] 13 mg/dL Normal 4-19 [facility] Comment on above: Order Comment: 107.1 Performed By: #### L 100.0500, L500.2500 #### [facility] [address] [place], [address] CBC-Complete Blood Cnt No Di yoelon 07-22-2024 Erythrocyte distribution width (RBC) [Ratio] 13.0 % Normal 11.6-14.6 [facility] Comment on above: Order Comment: 107.1 Performed By: #### L 100.0500, L500.2500 #### [facility] [address] [place], [address] Hematocrit (Bld) [Volume fraction] 41.7 % Normal 40-54 [facility] Comment on above: Order Comment: 107.1 Performed By: #### L 100.0500, L500.2500 #### [facility] [address] [place], [address] Hemoglobin (Bld) [Mass/Vol] 14.6 g/dL Normal 13.0-16.5 [facility] Comment on above: Order Comment: 107.1 Performed By: #### L 100.0500, L500.2500 #### [facility] [address] [place], [address] MCH (RBC) [Entitic mass] 32.4 pg High 27.0-32.0 [facility] Comment on above: Order Comment: 107.1 Performed By: #### L 100.0500, L500.2500 #### [facility] [address] [place], [address] MCHC (RBC) [Mass/Vol] 35.0 g/dL Normal 32-36 [facility] Comment on above: Order Comment: 107.1 Performed By: #### L 100.0500, L500.2500 #### [facility] [address] [place], [address] MCV (RBC) [Entitic vol] 92.7 fL Normal 80-94 [facility] Comment on above: Order Comment: 107.1 Performed By: #### L 100.0500, L500.2500 #### [facility] [address] [place], [address] Platelet mean volume (Bld) [Entitic vol] 11.3 fL Normal 6.2-12.0 [facility] Comment on above: Order Comment: 107.1 Performed By: #### L 100.0500, L500.2500 #### [facility] [address] [place], [address] Platelets (Bld) [#/Vol] 136 10*3/uL Low 150-450 [facility] Comment on above: Order Comment: 107.1 Performed By: #### L 100.0500, L500.2500 #### [facility] [address] [place], [address] RBC (Bld) [#/Vol] 4.50 10*6/uL Low 4.6-6.2 [facility] Comment on above: Order Comment: 107.1 Performed By: #### L 100.0500, L500.2500 #### [facility] [address] [place], [address] RDW SD 43.0 fl Normal 35.1-43.9 [facility] Comment on above: Order Comment: 107.1 Performed By: #### L 100.0500, L500.2500 #### [facility] [address] [place], [address] WBC (Bld) [#/Vol] 5.9 10*3/uL Normal 4.4-11.0 [facility] Comment on above: Order Comment: 107.1 Performed By: #### L 100.0500, L500.2500 #### [facility] [address] [place], [address] Carbon dioxide, total [Moles /volume] in Central venous bloodOrdered By: Demetrius Fenton on 07-22-2024 CO2 [Moles/Vol] 21.4 mmol/L 21.0-32.0 [facility] Chloride assayOrdered By: Travis Finch on 07-22-2024 Chloride [Moles/Vol] 97 mmol/L Low 98-108 [facility] Erythrocyte distribution wid th (RBC) [Ratio]Ordered By: Demetrius Fenton on 07-22-2024 Erythrocyte distribution width (RBC) [Entitic vol] 43.0 fL 35.1-43.9 [facility] Erythrocyte distribution wid th ratioOrdered By: Demetrius Fenton on 07-22-2024 Erythrocyte distribution width (RBC) [Ratio] 13.0 % 11.6-14.6 [facility] Erythrocyte distribution wid th standard deviationOrdered By: Demetrius Fenton on 07-22-2024 Erythrocyte distribution width (RBC) [Ratio] 43.0 fl 35.1-43.9 [facility] GFR/1.73 sq M.predicted gabino g non-blacks MDRD (S/P/Bld) [Vol rate/Area]Ordered By: Demetrius Fenton on 07-22-2024 Estimated GFR (MDRD) Non-Af Amer 69 >60 [facility] Comment on above: mL/min/1.73m2 CKD-EP I Creatinine Equation (2020) Glomerular filtration rate ( GFR) estimation/1.73 sq m using serum, plasma, or whole bOrdered By: Demetrius Fenton on 07-22-2024 GFR/1.73 sq M.predicted among non-blacks MDRD (S/P/Bld) [Vol rate/Area] 69 mL/min/{1.73_m2} >60 [facility] Comment on above: mL/min/1.73m2 CKD-EP I Creatinine Equation (2020) Hematocrit Auto (Bld) [Volum e fraction]Ordered By: Demetrius Fenton on 07-22-2024 Hematocrit (Bld) [Volume fraction] 41.7 % 40-54 [facility] Hemoglobin measurementOrdere d By: Demetrius Fenton on 07-22-2024 Hemoglobin (Bld) [Mass/Vol] 14.6 g/dL 13.0-16.5 [facility] MCV (mean corpuscular volume ) determinationOrdered By: Demetrius Fenton on 07-22-2024 MCV (RBC) [Entitic vol] 92.7 fL 80-94 [facility] Mean corpuscular hemoglobin (MCH) determinationOrdered By: Demetrius Fenton on 07-22-2024 MCH (RBC) [Entitic mass] 32.4 pg High 27.0-32.0 [facility] Mean corpuscular hemoglobin concentration (MCHC) determinationOrdered By: Demetrius Fenton on 07-22-2024 MCHC (RBC) [Mass/Vol] 35.0 g/dL 32-36 [facility] Mean platelet volume determi nationOrdered By: Demetrius Fenton on 07-22-2024 Platelet mean volume (Bld) [Entitic vol] 11.3 fL 6.2-12.0 [facility] Platelet countOrdered By: Travis Finch on 07-22-2024 Platelets (Bld) [#/Vol] 136 10*3/uL Low 150-450 [facility] Potassium (Unsp spec) [Mass/ Vol]Ordered By: Demetrius Fenton on 07-22-2024 Potassium [Moles/Vol] 4.4 mmol/L 3.3-5.1 [facility] Potassium measurement (mass/ volume)Ordered By: Demetrius Fenton on 07-22-2024 Potassium (Unsp spec) [Mass/Vol] 4.4 mmol/L 3.3-5.1 [facility] RBC Auto (Bld) [#/Vol]Ordere d By: Demetrius Fenton on 07-22-2024 RBC (Bld) [#/Vol] 4.50 10*6/uL Low 4.6-6.2 [facility] Serum creatinine measurement (mass/volume)Ordered By: Demetrius Fenton on 07-22-2024 Creatinine [Mass/Vol] 1.20 mg/dL 0.70-1.20 [facility] Serum glucose measurement (m ass/volume)Ordered By: Demetrius Fenton on 07-22-2024 Glucose [Mass/Vol] 184 mg/dL High 70-99 [facility] Serum or plasma calcium roseanne urement (mass/volume)Ordered By: Demetrius Fenton on 07-22-2024 Calcium [Mass/Vol] 9.1 mg/dL 7.6-11.0 [facility] Serum or plasma urea nitroge n measurement (mass/volume)Ordered By: Demetrius Fenton on 07-22-2024 Urea nitrogen [Mass/Vol] 13 mg/dL 4-19 [facility] Sodium levelOrdered By: Angel neisha Suzy on 07-22-2024 Sodium [Moles/Vol] 132 mmol/L Low 133-145 [facility] White blood cell (WBC) count Ordered By: Demetrius Fenton on 07-22-2024 WBC (Bld) [#/Vol] 5.9 10*3/uL 4.4-11.0 [facility] CBC-Complete Blood Cnt No Di ffon 07-08-2024 Erythrocyte distribution width (RBC) [Ratio] 13.2 % Normal 11.6-14.6 [facility] Comment on above: Order Comment: 107-1 Performed By: #### L 100.0500, L501.8100 #### [facility] [address] [place], [address] Hematocrit (Bld) [Volume fraction] 45.3 % Normal 40-54 [facility] Comment on above: Order Comment: 107-1 Performed By: #### L 100.0500, L501.8100 #### [facility] [address] [place], [address] Hemoglobin (Bld) [Mass/Vol] 15.6 g/dL Normal 13.0-16.5 [facility] Comment on above: Order Comment: 107-1 Performed By: #### L 100.0500, L501.8100 #### [facility] [address] [place], [address] MCH (RBC) [Entitic mass] 32.0 pg Normal 27.0-32.0 [facility] Comment on above: Order Comment: 107-1 Performed By: #### L 100.0500, L501.8100 #### [facility] [address] [place], [address] MCHC (RBC) [Mass/Vol] 34.4 g/dL Normal 32-36 [facility] Comment on above: Order Comment: 107-1 Performed By: #### L 100.0500, L501.8100 #### [facility] [address] [place], [address] MCV (RBC) [Entitic vol] 93.0 fL Normal 80-94 [facility] Comment on above: Order Comment: 107-1 Performed By: #### L 100.0500, L501.8100 #### [facility] [address] [place], [address] Platelet mean volume (Bld) [Entitic vol] 10.6 fL Normal 6.2-12.0 [facility] Comment on above: Order Comment: 107-1 Performed By: #### L 100.0500, L501.8100 #### [facility] [address] [place], [address] Platelets (Bld) [#/Vol] 139 10*3/uL Low 150-450 [facility] Comment on above: Order Comment: 107-1 Performed By: #### L 100.0500, L501.8100 #### [facility] [address] [place], [address] RBC (Bld) [#/Vol] 4.87 10*6/uL Normal 4.6-6.2 [facility] Comment on above: Order Comment: 107-1 Performed By: #### L 100.0500, L501.8100 #### [facility] [address] [place], [address] RDW SD 44.1 fl High 35.1-43.9 [facility] Comment on above: Order Comment: 107-1 Performed By: #### L 100.0500, L501.8100 #### [facility] [address] [place], [address] WBC (Bld) [#/Vol] 7.9 10*3/uL Normal 4.4-11.0 [facility] Comment on above: Order Comment: 107-1 Performed By: #### L 100.0500, L501.8100 #### [facility] [place], [address] CNOVon 07-08-2024 CNOV Office Visit ([facility] ) MOISES MADRID ([id number]) 1960 M Date Time Provider Department 07/08/24 12:00 PM CHHAYA SALDANA [facility] During your visit today, we recorded [...] (sleep) - Aimovig 140 mg monthly - [place] 5 mg q8hrs PRN pain (takes around [...] mouth once (more content not included)... Normal [facility] Erythrocyte distribution wid th ratioOrdered By: Demetrius Fenton on 07-08-2024 Erythrocyte distribution width (RBC) [Ratio] 13.2 % 11.6-14.6 [facility] Erythrocyte distribution wid th standard deviationOrdered By: Demetrius Fenton on 07-08-2024 Erythrocyte distribution width (RBC) [Entitic vol] 44.1 fL High 35.1-43.9 [facility] Erythrocyte distribution width (RBC) [Ratio] 44.1 fl High 35.1-43.9 [facility] Hematocrit Auto (Bld) [Volum e fraction]Ordered By: Demetrius Fenton on 07-08-2024 Hematocrit (Bld) [Volume fraction] 45.3 % 40-54 [facility] Hemoglobin measurementOrdere d By: Demetrius Fenton on 07-08-2024 Hemoglobin (Bld) [Mass/Vol] 15.6 g/dL 13.0-16.5 [facility] MCV (mean corpuscular volume ) determinationOrdered By: Demetrius Fenton on 07-08-2024 MCV (RBC) [Entitic vol] 93.0 fL 80-94 [facility] Mean corpuscular hemoglobin (MCH) determinationOrdered By: Demetrius Fenton on 07-08-2024 MCH (RBC) [Entitic mass] 32.0 pg 27.0-32.0 [facility] Mean corpuscular hemoglobin concentration (MCHC) determinationOrdered By: Demetrius Fenton on 07-08-2024 MCHC (RBC) [Mass/Vol] 34.4 g/dL 32-36 [facility] Mean platelet volume determi nationOrdered By: Demetrius Fenton on 07-08-2024 Platelet mean volume (Bld) [Entitic vol] 10.6 fL 6.2-12.0 [facility] Platelet countOrdered By: Travis Finch on 07-08-2024 Platelets (Bld) [#/Vol] 139 10*3/uL Low 150-450 [facility] RBC Auto (Bld) [#/Vol]Ordere d By: Demetrius Fenton on 07-08-2024 RBC (Bld) [#/Vol] 4.87 10*6/uL 4.6-6.2 [facility] Serum or plasma valproate me asurement (mass/volume)Ordered By: Demetrius Fenton on 07-08-2024 Valproate [Mass/Vol] 43 ug/mL Low 50-100 [facility] Comment on above: Valproic Acid concen trations >100 ug/mL are potentially toxic. Valproate [Mass/Vol]Ordered By: Demetrius Fenton on 07-08-2024 Valproic Acid (Depakene) Level 43 ug/mL Low 50-100 [facility] Comment on above: Valproic Acid concen trations >100 ug/mL are potentially toxic. Valproic Acid (Depakene) Lev alison 07-08-2024 VALPROIC ACID 43 ug/mL Low 50-100 [facility] Comment on above: Order Comment: 107-1 Result Comment: Valp roic Acid concentrations >100 ug/mL are potentially toxic. Performed By: #### L 100.0500, L501.8100 #### [facility] [address] [place], [address] White blood cell (WBC) count Ordered By: Demetrius Fenton on 07-08-2024 WBC (Bld) [#/Vol] 7.9 10*3/uL 4.4-11.0 [facility] BUN/creatinine ratioOrdered By: Demetrius Fenton on 06-10-2024 Urea nitrogen/Creatinine [Mass ratio] 14.5 mg/mg 10-20 [facility] Basic Metabolic Profile (BMP )on 06-10-2024 Anion gap [Moles/Vol] 14 mmol/L Normal 5-15 [facility] Comment on above: Order Comment: 107.1 Performed By: #### L 500.4050, L501.9985, L500.4100, L100.0500 #### [facility] [address] [place], [address] BUN/CRE 14.5 RATIO Normal 10-20 [facility] Comment on above: Order Comment: 107.1 Performed By: #### L 500.4050, L501.9985, L500.4100, L100.0500 #### [facility] [address] [place], [address] Calcium [Mass/Vol] 9.5 mg/dL Normal 7.6-11.0 [facility] [facility] Comment on above: Order Comment: 107.1 Performed By: #### L 500.4050, L501.9985, L500.4100, L100.0500 #### [facility] [address] [place], [address] Chloride [Moles/Vol] 99 mmol/L Normal 96-108 [facility] Comment on above: Order Comment: 107.1 Performed By: #### L 500.4050, L501.9985, L500.4100, L100.0500 #### [facility] [address] [place], [address] CO2 [Moles/Vol] 24.0 mmol/L Normal 22.0-29.0 [facility] Comment on above: Order Comment: 107.1 Performed By: #### L 500.4050, L501.9985, L500.4100, L100.0500 #### [facility] [address] [place], [address] Creatinine [Mass/Vol] 1.20 mg/dL Normal 0.70-1.20 [facility] Comment on above: Order Comment: 107.1 Performed By: #### L 500.4050, L501.9985, L500.4100, L100.0500 #### [facility] [address] [place], [address] GFR/1.73 sq M.predicted among non-blacks MDRD (S/P/Bld) [Vol rate/Area] 69 mL/min/{1.73_m2} Normal >60 [facility] Comment on above: Order Comment: 107.1 Result Comment: mL/m in/1.73m2 CKD-EPI Creatinine Equation (2020) Performed By: #### L 500.4050, L501.9985, L500.4100, L100.0500 #### [facility] [address] [place], [address] Glucose [Mass/Vol] 107 mg/dL High 70-99 [facility] Comment on above: Order Comment: 107.1 Performed By: #### L 500.4050, L501.9985, L500.4100, L100.0500 #### [facility] [address] [place], [address] Potassium [Moles/Vol] 4.7 mmol/L Normal 3.3-5.1 [facility] Comment on above: Order Comment: 107.1 Result Comment: Hemo lysis present, Results??could be affected. ?? Performed By: #### L 500.4050, L501.9985, L500.4100, L100.0500 #### [facility] [address] [place], [address] Sodium [Moles/Vol] 137 mmol/L Normal 133-145 [facility] Comment on above: Order Comment: 107.1 Performed By: #### L 500.4050, L501.9985, L500.4100, L100.0500 #### [facility] [address] [place], [address] Urea nitrogen [Mass/Vol] 17 mg/dL Normal 4-19 [facility] Comment on above: Order Comment: 107.1 Performed By: #### L 500.4050, L501.9985, L500.4100, L100.0500 #### [facility] [address] [place], [address] CBC-Complete Blood Cnt No Di ffon 06-10-2024 Erythrocyte distribution width (RBC) [Ratio] 13.7 % Normal 11.6-14.6 [facility] Comment on above: Order Comment: 107.1 Performed By: #### L 500.4050, L501.9985, L500.4100, L100.0500 #### [facility] [address] [place], [address] Hematocrit (Bld) [Volume fraction] 44.8 % Normal 40-54 [facility] Comment on above: Order Comment: 107.1 Performed By: #### L 500.4050, L501.9985, L500.4100, L100.0500 #### [facility] [address] [place], [address] Hemoglobin (Bld) [Mass/Vol] 15.5 g/dL Normal 13.0-16.5 [facility] Comment on above: Order Comment: 107.1 Performed By: #### L 500.4050, L501.9985, L500.4100, L100.0500 #### [facility] [address] [place], [address] MCH (RBC) [Entitic mass] 31.9 pg Normal 27.0-32.0 [facility] Comment on above: Order Comment: 107.1 Performed By: #### L 500.4050, L501.9985, L500.4100, L100.0500 #### [facility] [address] [place], [address] MCHC (RBC) [Mass/Vol] 34.6 g/dL Normal 32-36 [facility] Comment on above: Order Comment: 107.1 Performed By: #### L 500.4050, L501.9985, L500.4100, L100.0500 #### [facility] [address] [place], [address] MCV (RBC) [Entitic vol] 92.2 fL Normal 80-94 [facility] Comment on above: Order Comment: 107.1 Performed By: #### L 500.4050, L501.9985, L500.4100, L100.0500 #### [facility] [address] [place], [address] Platelet mean volume (Bld) [Entitic vol] 11.5 fL Normal 6.2-12.0 [facility] Comment on above: Order Comment: 107.1 Performed By: #### L 500.4050, L501.9985, L500.4100, L100.0500 #### [facility] [address] [place], [address] Platelets (Bld) [#/Vol] 130 10*3/uL Low 150-450 [facility] Comment on above: Order Comment: 107.1 Performed By: #### L 500.4050, L501.9985, L500.4100, L100.0500 #### [facility] [address] [place], [address] RBC (Bld) [#/Vol] 4.86 10*6/uL Normal 4.6-6.2 [facility] Comment on above: Order Comment: 107.1 Performed By: #### L 500.4050, L501.9985, L500.4100, L100.0500 #### [facility] [address] [place], [address] RDW SD 45.3 fl High 35.1-43.9 [facility] Comment on above: Order Comment: 107.1 Performed By: #### L 500.4050, L501.9985, L500.4100, L100.0500 #### [facility] [address] [place], [address] WBC (Bld) [#/Vol] 7.7 10*3/uL Normal 4.4-11.0 [facility] Comment on above: Order Comment: 107.1 Performed By: #### L 500.4050, L501.9985, L500.4100, L100.0500 #### [facility] [address] [place], [address] Carbon dioxide measurementOr dered By: Demetrius Fenton on 06-10-2024 CO2 [Moles/Vol] 24.0 mmol/L 22.0-29.0 [facility] Chloride measurementOrdered By: Demetrius Fenton on 06-10-2024 Chloride [Moles/Vol] 99 mmol/L 96-108 [facility] Erythrocyte distribution wid th ratioOrdered By: Demetrius Fenton on 06-10-2024 Erythrocyte distribution width (RBC) [Ratio] 13.7 % 11.6-14.6 [facility] Erythrocyte distribution wid th standard deviationOrdered By: Demetrius Fenton on 06-10-2024 Erythrocyte distribution width (RBC) [Entitic vol] 45.3 fL High 35.1-43.9 [facility] Erythrocyte distribution width (RBC) [Ratio] 45.3 fl High 35.1-43.9 [facility] GFR/1.73 sq M.predicted gabino g non-blacks MDRD (S/P/Bld) [Vol rate/Area]Ordered By: Demetrius Fenton on 06-10-2024 Estimated GFR (MDRD) Non-Af Amer 69 >60 [facility] Comment on above: mL/min/1.73m2 CKD-EP I Creatinine Equation (2020) Glomerular filtration rate ( GFR) estimation/1.73 sq m using serum, plasma, or whole bOrdered By: Demetrius Fenton on 06-10-2024 GFR/1.73 sq M.predicted among non-blacks MDRD (S/P/Bld) [Vol rate/Area] 69 mL/min/{1.73_m2} >60 [facility] Comment on above: mL/min/1.73m2 CKD-EP I Creatinine Equation (2020) Hematocrit Auto (Bld) [Volum e fraction]Ordered By: Demetrius Fenton on 06-10-2024 Hematocrit (Bld) [Volume fraction] 44.8 % 40-54 [facility] Hemoglobin measurementOrdere d By: Demetrius Fenton on 06-10-2024 Hemoglobin (Bld) [Mass/Vol] 15.5 g/dL 13.0-16.5 [facility] MCV (mean corpuscular volume ) determinationOrdered By: Demetrius Fenton on 06-10-2024 MCV (RBC) [Entitic vol] 92.2 fL 80-94 [facility] Mean corpuscular hemoglobin (MCH) determinationOrdered By: Demetrius Fenton on 06-10-2024 MCH (RBC) [Entitic mass] 31.9 pg 27.0-32.0 [facility] Mean corpuscular hemoglobin concentration (MCHC) determinationOrdered By: Demetrius Fenton on 06-10-2024 MCHC (RBC) [Mass/Vol] 34.6 g/dL 32-36 [facility] Mean platelet volume determi nationOrdered By: Demetrius Fenton on 06-10-2024 Platelet mean volume (Bld) [Entitic vol] 11.5 fL 6.2-12.0 [facility] Platelet countOrdered By: Travis Finch on 06-10-2024 Platelets (Bld) [#/Vol] 130 10*3/uL Low 150-450 [facility] RBC Auto (Bld) [#/Vol]Ordere d By: Demetrius Fenton on 06-10-2024 RBC (Bld) [#/Vol] 4.86 10*6/uL 4.6-6.2 [facility] Serum creatinine measurement (mass/volume)Ordered By: Demetrius Fenton on 06-10-2024 Creatinine [Mass/Vol] 1.20 mg/dL 0.70-1.20 [facility] Serum glucose measurement (m ass/volume)Ordered By: Demetrius Fenton on 06-10-2024 Glucose [Mass/Vol] 107 mg/dL High 70-99 [facility] Serum or plasma anion gap de termination (moles/volume)Ordered By: Demetrius Fenton on 06-10-2024 Anion gap [Moles/Vol] 14 mmol/L 5-15 [facility] Serum or plasma calcium roseanne urement (mass/volume)Ordered By: Demetrius Fenton on 06-10-2024 Calcium [Mass/Vol] 9.5 mg/dL 7.6-11.0 [facility] Serum or plasma potassium me asurementOrdered By: Demetrius Fenton on 06-10-2024 Potassium [Moles/Vol] 4.7 mmol/L 3.3-5.1 [facility] Comment on above: Hemolysis present, R esults could be affected. Serum or plasma sodium measu rement (moles/volume)Ordered By: Demetrius Fenton on 06-10-2024 Sodium [Moles/Vol] 137 mmol/L 133-145 [facility] Serum or plasma urea nitroge n measurement (mass/volume)Ordered By: Demetrius Fenton on 06-10-2024 Urea nitrogen [Mass/Vol] 17 mg/dL 4-19 [facility] White blood cell (WBC) count Ordered By: Demetrius Fenton on 06-10-2024 WBC (Bld) [#/Vol] 7.7 10*3/uL 4.4-11.0 [facility] 37on 04-09-2024 37 Ordered treatment completed and patient is healed. Patient discharged without any issues. All questions answered. Call the clinic if your wound reopens or a new wound appears at [phone] [facility] Progress Noteon [...] Test Results/Process Orders 10 [x] Staff telephones [facility], Nursing Homes/Clarify Orders 10 [] Routine [...] instructions please contact the wound center at [phone] If after regular business hours, please call [...] help with wound healing Nursing Care Facility: [facility] Bilateral legs resolved-Facility closed week - Facility [...] and sacral area daily and PRN. Normal [facility] Progress Noteon 03-27-2024 Progress Note Assessments [...] Test Results/Process Orders 10 [] Staff telephones WOUND CARE TECHNICIAN, Nursing Homes/Clarify Orders 10 [x] Routine Transfer [...] Points) Level 5 (160 or more Points) [address] 03-20-2024 37 Return Appointment i n: 1 week - Should you experience any significant changes in your wound(s) or have any questions regarding your home care instructions please contact the wound center at [phone] If after regular business hours, please call [...] help with wound healing Nursing Care Facility: [facility] Wound Treatment to R 2nd toe- Daily [...] buttocks and sacral area daily and PRN. [address] 03-13-2024 37 Return Appointment i n: 1 week - Should you experience any significant changes in your wound(s) or have any questions regarding your home care instructions please contact the wound center at [phone] If after regular business hours, please call [...] help with wound healing Nursing Care Facility: [facility] Wound Treatment to R toes- Daily Cleanse [...] and sacral area daily and PRN. Normal [facility] Albumin to globulin ratioOrd ered By: Demetrius Fenton on 03-13-2024 Albumin/Globulin [Mass ratio] 1.1 {ratio} 0.9-2.4 [facility] Bilirubin, totalOrdered By: Demetrius Fenton on 03-13-2024 Bilirubin [Mass/Vol] 1.10 mg/dL High 0.20-1.00 [facility] Comment on above: For patients on eltr ombopag therapy, use of Dimension Ruby TBIL is not recommended. Blood urea nitrogen (BUN)/cr eatinine ratioOrdered By: Demetrius Fenton on 03-13-2024 Urea nitrogen/Creatinine [Mass ratio] 16.0 mg/mg - [facility] CBC-Complete Blood Cnt No Di ffon 03-13-2024 Erythrocyte distribution width (RBC) [Ratio] 13.2 % Normal 11.6-14.6 [facility] Comment on above: Performed By: #### L 500.4050, L501.9985, L500.4100, L100.0500 #### [facility] [address] [place], [address] Hematocrit (Bld) [Volume fraction] 44.4 % Normal 40-54 [facility] Comment on above: Performed By: #### L 500.4050, L501.9985, L500.4100, L100.0500 #### [facility] [address] [place], [address] Hemoglobin (Bld) [Mass/Vol] 15.2 g/dL Normal 13.0-16.5 [facility] Comment on above: Performed By: #### L 500.4050, L501.9985, L500.4100, L100.0500 #### [facility] [address] [place], [address] MCH (RBC) [Entitic mass] 31.0 pg Normal 27.0-32.0 [facility] Comment on above: Performed By: #### L 500.4050, L501.9985, L500.4100, L100.0500 #### [facility] [address] [place], [address] MCHC (RBC) [Mass/Vol] 34.2 g/dL Normal 32-36 [facility] Comment on above: Performed By: #### L 500.4050, L501.9985, L500.4100, L100.0500 #### [facility] [address] [place], [address] MCV (RBC) [Entitic vol] 90.4 fL Normal 80-94 [facility] Comment on above: Performed By: #### L 500.4050, L501.9985, L500.4100, L100.0500 #### [facility] [address] [place], [address] Platelet mean volume (Bld) [Entitic vol] 10.8 fL Normal 6.2-12.0 [facility] Comment on above: Performed By: #### L 500.4050, L501.9985, L500.4100, L100.0500 #### [facility] [address] [place], [address] Platelets (Bld) [#/Vol] 149 10*3/uL Low 150-450 [facility] Comment on above: Performed By: #### L 500.4050, L501.9985, L500.4100, L100.0500 #### [facility] [address] [place], [address] RBC (Bld) [#/Vol] 4.91 10*6/uL Normal 4.6-6.2 [facility] Comment on above: Performed By: #### L 500.4050, L501.9985, L500.4100, L100.0500 #### [facility] [address] [place], [address] RDW SD 42.7 fl Normal 35.1-43.9 [facility] Comment on above: Performed By: #### L 500.4050, L501.9985, L500.4100, L100.0500 #### [facility] [address] [place], [address] WBC (Bld) [#/Vol] 8.1 10*3/uL Normal 4.4-11.0 [facility] Comment on above: Performed By: #### L 500.4050, L501.9985, L500.4100, L100.0500 #### [facility] [address] [place], [address] Carbon dioxide measurementOr dered By: Demetrius Fenton on 03-13-2024 CO2 [Moles/Vol] 26.0 mmol/L 21.0-32.0 [facility] Chloride measurementOrdered By: Demetrius Fenton on 03-13-2024 Chloride [Moles/Vol] 104 mmol/L 98-107 [facility] Comprehensive Metabolic Prof ilon 03-13-2024 Albumin [Mass/Vol] 3.5 g/dL Normal 3.2-5.0 [facility] Comment on above: Performed By: #### L 500.4050, L501.9985, L500.4100, L100.0500 #### [facility] [address] [place], [address] Albumin/Globulin [Mass ratio] 1.1 {ratio} Normal 0.9-2.4 [facility] Comment on above: Performed By: #### L 500.4050, L501.9985, L500.4100, L100.0500 #### [facility] [address] [place], [address] ALK P 65 U/L Normal 45-117 [facility] Comment on above: Performed By: #### L 500.4050, L501.9985, L500.4100, L100.0500 #### [facility] [address] [place], [address] ALT [Catalytic activity/Vol] 53 U/L Normal 16-61 [facility] Comment on above: Performed By: #### L 500.4050, L501.9985, L500.4100, L100.0500 #### [facility] [address] [place], [address] AST [Catalytic activity/Vol] 37 U/L Normal 15-37 [facility] Comment on above: Result Comment: Slig ht Hemolysis, Result may be falsely increased. Performed By: #### L 500.4050, L501.9985, L500.4100, L100.0500 #### [facility] [address] [place], [address] Bilirubin [Mass/Vol] 1.10 mg/dL High 0.20-1.00 [facility] Comment on above: Result Comment: For patients on eltrombopag therapy, use of Dimension Ruby TBIL is not recommended. Performed By: #### L 500.4050, L501.9985, L500.4100, L100.0500 #### [facility] [address] [place], [address] BUN/CRE 16.0 RATIO Normal 10-20 [facility] Comment on above: Performed By: #### L 500.4050, L501.9985, L500.4100, L100.0500 #### [facility] [address] [place], [address] CA,Total 9.1 mg/dL Normal 8.5-10.1 [facility] Comment on above: Performed By: #### L 500.4050, L501.9985, L500.4100, L100.0500 #### [facility] [address] [place], [address] Chloride [Moles/Vol] 104 mmol/L Normal 98-107 [facility] Comment on above: Performed By: #### L 500.4050, L501.9985, L500.4100, L100.0500 #### [facility] [address] [place], [address] CO2 [Moles/Vol] 26.0 mmol/L Normal 21.0-32.0 [facility] Comment on above: Performed By: #### L 500.4050, L501.9985, L500.4100, L100.0500 #### [facility] [address] [place], [address] Creatinine [Mass/Vol] 1.06 mg/dL Normal 0.70-1.30 [facility] Comment on above: Result Comment: The validity of the calculated GFR GFRAA in patients over 70 years has not been determined. Clinical correlation is essential. Performed By: #### L 500.4050, L501.9985, L500.4100, L100.0500 #### [facility] [address] [place], [address] EST GFR - AA 91 mL/min Normal >60 [facility] Comment on above: Result Comment: Afri can [place] GFR Calc Performed By: #### L 500.4050, L501.9985, L500.4100, L100.0500 #### [facility] [address] [place], [address] GAP 7 Normal 5-15 [facility] Comment on above: Performed By: #### L 500.4050, L501.9985, L500.4100, L100.0500 #### [facility] [address] [place], [address] GFR/1.73 sq M.predicted among non-blacks MDRD (S/P/Bld) [Vol rate/Area] 75 mL/min/{1.73_m2} Normal >60 [facility] Comment on above: Result Comment: Non- GFR Calc Performed By: #### L 500.4050, L501.9985, L500.4100, L100.0500 #### [facility] [address] [place], [address] Globulin (S) [Mass/Vol] 3.2 g/dL Normal 2.2-4.2 [facility] Comment on above: Performed By: #### L 500.4050, L501.9985, L500.4100, L100.0500 #### [facility] [address] [place], [address] Glucose [Mass/Vol] 107 mg/dL High 74-106 [facility] Comment on above: Result Comment: Fast ing Glucose result from 100 to 125 mg/dL suggests IMPAIRED HOMEOSTASIS per A.D.A. criteria. Performed By: #### L 500.4050, L501.9985, L500.4100, L100.0500 #### [facility] [address] [place], [address] Potassium [Moles/Vol] 4.7 mmol/L Normal 3.5-5.1 [facility] Comment on above: Result Comment: Slig ht Hemolysis, Result may be falsely increased. Performed By: #### L 500.4050, L501.9985, L500.4100, L100.0500 #### [facility] [address] [place], [address] Sodium [Moles/Vol] 137 mmol/L Normal 136-145 [facility] Comment on above: Performed By: #### L 500.4050, L501.9985, L500.4100, L100.0500 #### [facility] [address] [place], [address] T PROT 6.7 g/dL Normal 6.4-8.2 [facility] Comment on above: Performed By: #### L 500.4050, L501.9985, L500.4100, L100.0500 #### [facility] [address] [place], [address] Urea nitrogen [Mass/Vol] 17 mg/dL Normal 7-18 [facility] Comment on above: Performed By: #### L 500.4050, L501.9985, L500.4100, L100.0500 #### [facility] [address] [place], [address] Erythrocyte distribution wid th ratioOrdered By: Demetrius Fenton on 03-13-2024 Erythrocyte distribution width (RBC) [Ratio] 13.2 % 11.6-14.6 [facility] Erythrocyte distribution wid th standard deviationOrdered By: Demetrius Fenton on 03-13-2024 Erythrocyte distribution width (RBC) [Entitic vol] 42.7 fL 35.1-43.9 [facility] Estimated glomerular filtrat ion rate (GFR) AmericanOrdered By: Demetrius Fenton on 03-13-2024 Estimated GFR (MDRD) Amer 91 mL/min >60 [facility] Comment on above: GFR Calc Glomerular filtration rate ( GFR) estimationOrdered By: Demetrius Fenton on 03-13-2024 Estimated GFR (MDRD) Non-Af Amer 75 mL/min >60 [facility] Comment on above: Non- GFR Calc Glucose measurementOrdered B y: Demetrius Fenton on 03-13-2024 Glucose [Mass/Vol] 107 mg/dL High 74-106 [facility] Comment on above: Fasting Glucose resu lt from 100 to 125 mg/dL suggests IMPAIRED HOMEOSTASIS per A.D.A. criteria. Hematocrit Auto (Bld) [Volum e fraction]Ordered By: Demetrius Fenton on 03-13-2024 Hematocrit (Bld) [Volume fraction] 44.4 % 40-54 [facility] Hemoglobin A1con 03-13-2024 HbA1c (Bld) [Mass fraction] 6.2 % High 3.8-5.6 [facility] Comment on above: Result Comment: Norm al < 5.7 % Prediabetic 5.7 - 6.4 % Diabetic >or= 6.5 % Please note range changes. Performed By: #### L 500.4050, L501.9985, L500.4100, L100.0500 #### [facility] [address] [place], [address] Hemoglobin A1c percentageOrd ered By: Demetrius Fenton on 03-13-2024 HbA1c (Bld) [Mass fraction] 6.2 % High 3.8-5.6 [facility] Comment on above: Normal < 5.7 % Predi abetic 5.7 - 6.4 % Diabetic >or= 6.5 % Please note range changes. Hemoglobin measurementOrdere d By: Demetrius Fenton on 03-13-2024 Hemoglobin (Bld) [Mass/Vol] 15.2 g/dL 13.0-16.5 [facility] High density lipoprotein (HD L) measurementOrdered By: Demetrius Fenton on 03-13-2024 Cholesterol in HDL [Mass/Vol] 41 mg/dL >40 [facility] Comment on above: The drugs N-Acetylcy steine and Metamizole may falsely depress this assay. Reference Range HDL <40 mg/dL Low HDL Cholesterol HDL >or= 60 mg/dL High HDL Cholesterol Laboratory - Chemistry and C hemistry - challengeOrdered By: Demetrius Fenton on 03-13-2024 AST [Catalytic activity/Vol] 37 U/L 15-37 [facility] Comment on above: Slight Hemolysis, Re sult may be falsely increased. Lipid Profileon 03-13-2024 Cholesterol [Mass/Vol] 112 mg/dL Normal 200 [facility] Comment on above: Result Comment: <200 mg/dL Desirable 200-240 mg/dL Borderline >240 mg/dL High Risk Performed By: #### L 500.4050, L501.9985, L500.4100, L100.0500 #### [facility] [address] [place], [address] Cholesterol in HDL [Mass/Vol] 41 mg/dL Normal [facility] Comment on above: Result Comment: The drugs N-Acetylcysteine and Metamizole may falsely depress this assay. Reference Range HDL <40 mg/dL Low HDL Cholesterol HDL >or= 60 mg/dL High HDL Cholesterol Performed By: #### L 500.4050, L501.9985, L500.4100, L100.0500 #### [facility] [address] [place], [address] Cholesterol in LDL [Mass/Vol] 51 mg/dL Normal 0-130 [facility] Comment on above: Performed By: #### L 500.4050, L501.9985, L500.4100, L100.0500 #### [facility] [address] [place], [address] Cholesterol in VLDL [Mass/Vol] 20 mg/dL Normal 5-40 [facility] Comment on above: Performed By: #### L 500.4050, L501.9985, L500.4100, L100.0500 #### [facility] [address] [place], [address] Triglyceride [Mass/Vol] 101 mg/dL Normal [facility] Comment on above: Result Comment: The drugs N-Acetylcysteine and Metamizole may falsely depress this assay. Serum Triglycerides Reference Interval Normal <150 mg/dL Borderline high 150 - 199 mg/dL High 200 - 499 mg/dL Very High > or = 500 mg/dL Performed By: #### L 500.4050, L501.9985, L500.4100, L100.0500 #### [facility] [address] [place], [address] Low density lipoprotein (LDL ) cholesterol measurementOrdered By: Demetrius Fenton on 03-13-2024 Cholesterol in LDL [Mass/Vol] 51 mg/dL 0-130 [facility] MCV (mean corpuscular volume ) determinationOrdered By: Demetrius Fenton on 03-13-2024 MCV (RBC) [Entitic vol] 90.4 fL 80-94 [facility] Mean corpuscular hemoglobin (MCH) determinationOrdered By: Demetrius Fenton on 03-13-2024 MCH (RBC) [Entitic mass] 31.0 pg 27.0-32.0 [facility] Mean corpuscular hemoglobin concentration (MCHC) determinationOrdered By: Demetrius Fenton on 03-13-2024 MCHC (RBC) [Mass/Vol] 34.2 g/dL 32-36 [facility] Mean platelet volume determi nationOrdered By: Demetrius Fenton on 03-13-2024 Platelet mean volume (Bld) [Entitic vol] 10.8 fL 6.2-12.0 [facility] Platelet countOrdered By: Travis Finch on 03-13-2024 Platelets (Bld) [#/Vol] 149 10*3/uL Low 150-450 [facility] Potassium measurementOrdered By: Demetrius Fenton on 03-13-2024 Potassium [Moles/Vol] 4.7 mmol/L 3.5-5.1 [facility] Comment on above: Slight Hemolysis, Re sult may be falsely increased. RBC Auto (Bld) [#/Vol]Ordere d By: Demetrius Fenton on 03-13-2024 RBC (Bld) [#/Vol] 4.91 10*6/uL 4.6-6.2 [facility] Serum anion gap measurementO rdered By: Demetrius Fenton on 03-13-2024 Anion gap [Moles/Vol] 7 mmol/L 5-15 [facility] Serum globulin measurementOr dered By: Demetrius Fenton on 03-13-2024 Globulin (S) [Mass/Vol] 3.2 g/dL 2.2-4.2 [facility] Serum or plasma alanine joy otransferase (ALT) measurementOrdered By: Demetrius Fenton on 03-13-2024 ALT [Catalytic activity/Vol] 53 U/L 16-61 [facility] Serum or plasma albumin roseanne urement (mass/volume)Ordered By: Demetrius Fenton on 03-13-2024 Albumin [Mass/Vol] 3.5 g/dL 3.2-5.0 [facility] Serum or plasma alkaline elsie sphatase measurementOrdered By: Demetrius Fenton on 03-13-2024 ALP [Catalytic activity/Vol] 65 U/L 45-117 [facility] Serum or plasma calcium roseanne urement (mass/volume)Ordered By: Demetrius Fenton on 03-13-2024 Calcium [Mass/Vol] 9.1 mg/dL 8.5-10.1 [facility] Serum or plasma cholesterol measurement (mass/volume)Ordered By: Demetrius Fenton on 03-13-2024 Cholesterol [Mass/Vol] 112 mg/dL <200 [facility] Comment on above: <200 mg/dL Desirable 200-240 mg/dL Borderline >240 mg/dL High Risk Serum or plasma creatinine m easurement (mass/volume)Ordered By: Demetrius Fenton on 03-13-2024 Creatinine [Mass/Vol] 1.06 mg/dL 0.70-1.30 [facility] Comment on above: The validity of the calculated GFR & GFRAA in patients over 70 years has not been determined. Clinical correlation is essential. Serum or plasma urea nitroge n measurement (mass/volume)Ordered By: Demetrius Fenton on 03-13-2024 Urea nitrogen [Mass/Vol] 17 mg/dL 7-18 [facility] Sodium levelOrdered By: Angel Fenton on 03-13-2024 Sodium [Moles/Vol] 137 mmol/L 136-145 [facility] Total proteinOrdered By: Miriam Fenton on 03-13-2024 Protein [Mass/Vol] 6.7 g/dL 6.4-8.2 [facility] Triglycerides measurementOrd ered By: Demetrius Fenton on 03-13-2024 Triglyceride [Mass/Vol] 101 mg/dL <199 [facility] Comment on above: The drugs N-Acetylcy steine and Metamizole may falsely depress this assay.Serum Triglycerides Reference Interval Normal <150 mg/dL Borderline high 150 - 199 mg/dL High 200 - 499 mg/dL Very High > or = 500 mg/dL Very low density lipoprotein (VLDL) cholesterol measurementOrdered By: Demetrius Fenton on 03-13-2024 VLDL Cholesterol 20 mg/dL 5-40 [facility] White blood cell (WBC) count Ordered By: Demetrius Fenton on 03-13-2024 WBC (Bld) [#/Vol] 8.1 10*3/uL 4.4-11.0 [facility] 37on 03-06-2024 37 Return Appointment i n: 1 week - Should you experience any significant changes in your wound(s) or have any questions regarding your home care instructions please contact the wound center at [phone] If after regular business hours, please call [...] help with wound healing Nursing Care Facility: [facility] Wound Treatment to R toes- Daily Cleanse [...] instructions please contact the wound center at [phone] If after regular business hours, please call [...] lite applied for prevention. Nursing Care Facility: [facility] Wound Treatment to R toes- Daily Cleanse [...] provider verified the correct patient, procedure, equipment, life support technician, and site/side marked as required. Debridement Details [...] Response to treatment: procedure was tolerated well [facility] [employer] 37on 02-21-2024 37 Return Appointment i n: 1 week - Should you experience any significant changes in your wound(s) or have any questions regarding your home care instructions please contact the wound center at [phone] If after regular business hours, please call [...] lite applied for prevention. Nursing Care Facility: [facility] Wound Treatment to R toes- Daily Cleanse [...] and sacral area daily and PRN. Normal [facility] CBC W Auto Differential pane l (Bld)on 02-18-2024 Basophils (Bld) [#/Vol] 0.1 10*3/uL 0.0 - 0.2 10*3/uL [employer] Basophils/100 WBC (Bld) 0.8 % 0.0 - 2.0 % [facility] [employer] Eosinophils (Bld) [#/Vol] 0.2 10*3/uL 0.0 - 0.5 10*3/uL [facility] [employer] Eosinophils/100 WBC (Bld) 2.8 % 0.0 - 6.0 % [facility] [employer] Erythrocyte distribution width (RBC) [Ratio] 13.2 % 11.5 - 15.0 % [facility] [employer] Hematocrit (Bld) [Volume fraction] 49.2 % 40.0 - 52.0 % [employer] [employer] Hemoglobin (Bld) [Mass/Vol] 16.9 g/dL 13.0 - 18.0 g/dL [facility] Immature granulocytes (Bld) [#/Vol] 0.1 10*3/uL High NINF - 0.1 10*3/uL [facility] [employer] Immature granulocytes/100 WBC (Bld) 0.6 % 0.0 - 2.0 % [facility] Interpretation and review of laboratory results Abnormal [facility] IPF 4 [facility] Lymphocytes (Bld) [#/Vol] 2.7 10*3/uL 1.0 - 4.3 10*3/uL [facility] Lymphocytes/100 WBC (Bld) 35 % 15.0 - 45.0 % [facility] MCH (RBC) [Entitic mass] 31 pg 26.0 - 34.0 pg [facility] MCHC (RBC) [Mass/Vol] 34.3 % 30.5 - 36.0 % [facility] MCV (RBC) [Entitic vol] 90.1 fL 77.0 - 99.0 fL [facility] Monocytes (Bld) [#/Vol] 0.6 10*3/uL 0.0 - 0.9 10*3/uL [facility] Monocytes/100 WBC (Bld) 7.6 % 5.0 - 13.0 % [facility] Neutrophils (Bld) [#/Vol] 4.1 10*3/uL 1.8 - 7.5 10*3/uL [facility] Neutrophils/100 WBC (Bld) 53.2 % 38.0 - 82.0 % [facility] Nucleated RBC/100 WBC (Bld) [Ratio] 0 % [facility] Platelet mean volume (Bld) [Entitic vol] 10.9 fL 9.0 - 12.7 fL [facility] Platelets (Bld) [#/Vol] 133 10*3/uL Low 140 - 440 10*3/uL [facility] RBC (Bld) [#/Vol] 5.46 10*6/uL 4.40 - 5.9 0 10*6/uL [facility] WBC (Bld) [#/Vol] 7.8 10*3/uL 3.6 - 10.7 10*3/uL [facility] CBC WITH AUTO DIFFERENTIALon 02-18-2024 Basophils (Bld) [#/Vol] 0.1 10*3/uL Normal 0.0-0.2 [facility] Comment on above: Performed By: #### L [id number] #### [employer]: SHARLA FINNEY ([id number]) [facility]) [address] [place] [address] Basophils/100 WBC (Bld) 0.8 % Normal 0.0-2.[address] [facility] Comment on above: Performed By: #### L [id number] #### [employer]: SHARLA FINNEY ([id number]) [facility]) [address] [place] [address] Eosinophils (Bld) [#/Vol] 0.2 10*3/uL Normal 0.0-0.5 [facility] Comment on above: Performed By: #### L [id number] #### [employer]: SHARLA FINNEY ([id number]) [facility]) [address] [place] [address] Eosinophils/100 WBC (Bld) 2.8 % Normal 0.0-6.0 [facility] Comment on above: Performed By: #### L [id number] #### [employer]: SHARLA FINNEY ([id number]) [facility]) [address] [place] [address] Erythrocyte distribution width (RBC) [Ratio] 13.2 % Normal 11.5-15.0 [facility] Comment on above: Performed By: #### L [id number] #### [employer]: SHARLA FINNEY ([id number]) [facility]) [address] [place] [address] Hematocrit (Bld) [Volume fraction] 49.2 % Normal 40.0-52.0 [facility] Comment on above: Performed By: #### L [id number] #### [employer]: SHARLA FINNEY ([id number]) [facility]) [address] [place] [address] Hemoglobin (Bld) [Mass/Vol] 16.9 g/dL Normal 13.0-18.0 [facility] Comment on above: Performed By: #### L [id number] #### [employer]: SHARLA FINNEY ([id number]) [facility]) [address] [place] [address] IMMATURE GRANS % 0.6 % Normal 0.0-2.0 [facility] Comment on above: Performed By: #### L [id number] #### [employer]: SHARLA FINNEY ([id number]) [facility]) [address] [place] [address] IMMATURE GRANS ABSOLUTE 0.1 10*3/uL High <0.1 [facility] Comment on above: Performed By: #### L [id number] #### [employer] Builder: SHARLA FINENY ([id number]) [facility]) [address] [place] [address] [place] IPF 4 Normal [facility] Comment on above: Performed By: #### L [id number] #### [employer]: SHARLA FINNEY ([id number]) [facility]) [address] [place] [address] Lymphocytes (Bld) [#/Vol] 2.7 10*3/uL Normal 1.0-4.3 [facility] Comment on above: Performed By: #### L [id number] #### [employer]: SHARLA FINNEY ([id number]) [facility]) [address] [place] [address] Lymphocytes/100 WBC (Bld) 35.0 % Normal 15.0-45.0 [facility] Comment on above: Performed By: #### L [id number] #### [employer]: SHARLA FINNEY ([id number]) [facility] ([facility]) [address] [place] [address] MCH (RBC) [Entitic mass] 31.0 pg Normal 26.0-34.0 [facility] Comment on above: Performed By: #### L [id number] #### [employer]: SHARLA FINNEY ([id number]) [facility]) [address] [place] [address] MCHC 34.3 % Normal 30.5-36.0 [facility] Comment on above: Performed By: #### L [id number] #### [employer]: SHARLA FINNEY ([id number]) [facility] ([facility]) [address] [place] [address] MCV (RBC) [Entitic vol] 90.1 fL Normal 77.0-99.0 [facility] Comment on above: Performed By: #### L [id number] #### [employer]: SHARLA FINNEY ([id number]) [facility] ([facility]) [address] [place] [address] Monocytes (Bld) [#/Vol] 0.6 10*3/uL Normal 0.0-0.9 [facility] Comment on above: Performed By: #### L [id number] #### [employer]: SHARLA FINNEY ([id number]) [facility] ([facility]) [address] [place] [address] Monocytes/100 WBC (Bld) 7.6 % Normal 5.0-13.0 [facility] Comment on above: Performed By: #### L [id number] #### [employer]: SHARLA FINNEY ([id number]) [facility] ([facility]) [address] [place] [address] NEUTROPHILS ABSOLUTE 4.1 10*3/uL Normal 1.8-7.5 [facility] Comment on above: Performed By: #### L [id number] #### [employer]: SHARLA FINNEY ([id number]) [facility] ([facility]) [address] [place] [address] Neutrophils/100 WBC (Bld) 53.2 % Normal 38.0-82.0 [facility] Comment on above: Performed By: #### L [id number] #### [employer]: SHARLA FINNEY ([id number]) [facility]) [address] [place] [address] NRBC 0.0 /100 WBCs Normal 0.0-2.0 [facility] Comment on above: Performed By: #### L [id number] #### [employer]: SHARLA FINNEY ([id number]) [facility] [address] [place] [address] Platelet mean volume (Bld) [Entitic vol] 10.9 fL Normal 9.0-12.7 [facility] Comment on above: Performed By: #### L [id number] #### [employer]: SHARLA FINNEY ([id number]) [facility] ([facility]) [address] [place] [address] Platelets (Bld) [#/Vol] 133 10*3/uL Low 140-440 [facility] Comment on above: Performed By: #### L [id number] #### [employer]: SHARLA FINNEY ([id number]) [facility] ([facility]) [address] [place] [address] RBC (Bld) [#/Vol] 5.46 10*6/uL Normal 4.40-5.90 [facility] Comment on above: Performed By: #### L [id number] #### [employer]: SHARLA FINNEY ([id number]) [facility] ([facility]) [address] [place] [address] WBC (Bld) [#/Vol] 7.8 10*3/uL Normal 3.6-10.7 [facility] Comment on above: Performed By: #### L [id number] #### [employer]: SHARLA FINNEY ([id number]) [facility] ([facility]) [address] [place] [address] COMPREHENSIVE METABOLIC PANE Micah 02-18-2024 Albumin [Mass/Vol] 4.7 g/dL Normal 3.5-5.0 [facility] Comment on above: Performed By: #### L [id number] #### [employer]: SHARLA FINNEY ([id number]) [facility] ([facility]) [address] [place] [address] ALP [Catalytic activity/Vol] 68 U/L Normal 38-126 [facility] Comment on above: Performed By: #### L [id number] #### [employer]: SHARLA FINNEY ([id number]) [facility] ([facility]) [address] ALT [Catalytic activity/Vol] 52 U/L High 0-49 [facility] Comment on above: Performed By: #### L [id number] #### [employer]: SHARLA FINNEY ([id number]) [facility] ([facility]) [address] [place] [address] Anion gap [Moles/Vol] 6 mmol/L Normal 3-13 [facility] Comment on above: Performed By: #### L [id number] #### [employer]: SHARLA FINNEY ([id number]) [facility] ([facility]) [address] [place] [address] AST [Catalytic activity/Vol] 48 U/L High 15-46 [facility] Comment on above: Performed By: #### L [id number] #### [employer]: SHARLA FINNEY ([id number]) [facility] ([facility]) [address] [place] [address] Bilirubin [Mass/Vol] 1.4 mg/dL High 0.2-1.3 [facility] Comment on above: Performed By: #### L [id number] #### [employer]: SHARLA FINNEY ([id number]) [facility] ([facility]) [address] [place] [address] Calcium [Mass/Vol] 9.6 mg/dL Normal 8.4-10.4 [facility] Comment on above: Performed By: #### L [id number] #### [employer]: SHARLA FINNEY ([id number]) [facility] ([facility]) [address] [place] [address] [place] Chloride [Moles/Vol] 100 mmol/L Normal 98-107 [facility] Comment on above: Performed By: #### L [id number] #### [employer]: SHARLA FINNEY ([id number]) [facility] ([facility]) [address] [place] [address] [place] CO2 [Moles/Vol] 30 mmol/L Normal 22-30 [facility] Comment on above: Performed By: #### L [id number] #### [employer]: SHARLA FINNEY ([id number]) [facility] ([facility]) [address] [place] [address] Creatinine [Mass/Vol] 0.99 mg/dL Normal 0.66-1.25 [facility] Comment on above: Performed By: #### L [id number] #### [employer]: SHARLA FINNEY ([id number]) [facility] [address] [place] [address] [place] GLOMERULAR FILTRATION RATE ML/MIN/1.73 SQ M.PREDICTED 86.7 mL/min/1.73m*2 Normal >60.0 [facility] Comment on above: Result Comment: Calc ulation based on the Chronic Kidney Disease Epidemiology Collaboration (CKD-EPI) equation refit without adjustment for race Performed By: #### L [id number] #### [employer]: SHARLA FINNEY ([id number]) [facility] [address] [place] [address] Glucose [Mass/Vol] 104 mg/dL High 70-100 [facility] Comment on above: Performed By: #### L [id number] #### [employer]: SHARLA FINNEY ([id number]) [facility] [address] [place] [address] [place] Potassium [Moles/Vol] 4.5 mmol/L Normal 3.5-5.1 [facility] Comment on above: Performed By: #### L [id number] #### [employer]: SHARLA FINNEY ([id number]) [facility] [address] [place] [address] [place] Protein [Mass/Vol] 8.0 g/dL Normal 6.3-8.2 [facility] Comment on above: Performed By: #### L [id number] #### [employer]: SHARLA FINNEY ([id number]) [facility] ([facility]) [address] [place] [address] Sodium [Moles/Vol] 135 mmol/L Normal 135-145 [facility] Comment on above: Performed By: #### L [id number] #### [employer]: SHARLA FINNEY ([id number]) [facility] ([facility]) [address] [place] [address] Urea nitrogen [Mass/Vol] 18 mg/dL Normal 9-20 [facility] Comment on above: Performed By: #### L [id number] #### [employer]: SHARLA FINNEY ([id number]) [facility] ([facility]) [address] [place] [address] CT HEAD WO IV CONTRASTon CT HEAD [...] to year, oriented to month, according to usp he received norco and tylenol w no relief, per snf states he has constant headache Normal [facility] CT Head WO contraston 2023 No acute intracrania l hemorrhage or territorial infarct. Findings suggestive of acute and chronic paranasal sinusitis. Report Dictated on Electronically Signed By: Jus Barlow DR Electronically Signed Date/Time: 02/18/2024 1:49 AM EST [facility] Patient Name: MOISES VERONCIA : 1960 Exam Date/Time: 02/18/2024 01:41 Procedure: [...] frontal sinus and left ethmoid air cells. [facility] Jus Barlow MD - 02/18/2024 Patient [...] [facility] observation (narrative) [facility] harvey CT Head WO contrastOrdered B y: Jus Barlow on 02-18-2024 [facility] [employer] Work Phone: Comprehensive metabolic 1998 panelon 02-18-2024 [...] mg/dL High 0.2 - 1 .3 mg/dL [facility] [employer] Calcium [Mass/Vol] 9.6 mg/dL 8.4 - 10. 4 mg/dL [facility] [employer] Chloride [Moles/Vol] 100 mmol/L 98 - 10 [...] 18 mg/dL 9 - 20 mg/dL [facility] ED Nursing Noteon 02-18-2024 ED Nursing Note Aamir bernard at bedside [facility] ED Nursing Note Report called to snf at this time [facility] ED Nursing Note Pt presents with headache, 12/18, from snf, unsure was if he was given any meds at snf, alert and oriented x3, disoriented to year, oriented to month, according to usp he received norco and tylenol w no relief, per snf states he has constant headache Normal [facility] ED Provider Noteon ED Provider Note [...] of headache that was not relieved with [place] or Tylenol this [facility] at [facility]. [facility] sent him to the emergency department to be evaluated for his intractable headache. Nursing Notes were reviewed. 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 Normal [facility] - Coagulationon 04-19-2023 aPTT Coag (PPP) [Time] 25 s 20.0 - 30.5 s [facility] [employer] INR Coag (PPP) [Relative time] 1.1 {INR} [...] and review of laboratory results Normal [facility] PROTIME AND APTTon aPTT Coag (Bld) [Time] 25.0 s Normal 20.0-30.5 [facility] Comment on above: Performed By: #### Jacob [id number] ####[employer]: SATYA BRANNON ([id number])[address] INR Coag (PPP) [Relative time] 1.1 {INR} Normal 0.9-1.1 [facility] Comment on above: Result Comment: Saulo [...] prevent Myocardial Infarction Performed By: #### L [id number] ####[employer]: SATYA [id number])[facility])[address] [place] [address] PT Coag (PPP) [Time] 11.9 s Normal 9.0-12.0 [facility] Comment on above: Performed By: #### L [id number] ####[employer]: SATYA BRANNON ([id number])[facility] ([facility])[address] [place] [address] 02-14-2024 29 Encounter addended b y: Marycarmen Corona RN on: 02/15/2024 9:48 AM Actions taken: Charge Capture section accepted [facility] 3702-14-2024 37 Return Appointment i n: 1 week - Should you experience any significant changes in your wound(s) or have any questions regarding your home care instructions please contact the wound center at [phone] If after regular business hours, please call [...] lite applied for prevention. Nursing Care Facility: [facility] Wound Treatment to R toes- Daily Cleanse [...] and sacral area daily and PRN. Normal [facility] 02-07-2024 29 Encounter addended b y: Marycarmen Corona RN on: 02/07/2024 10:59 AM Actions taken: Charge Capture section accepted [facility] 29 Encounter addended b y: Adriana Barbosa MA on: 02/07/2024 10:26 AM Actions taken: Flowsheet accepted [facility] 02-07-2024 37 Return Appointment i n: 1 week - Should you experience any significant changes in your wound(s) or have any questions regarding your home care instructions please contact the wound center at [phone] If after regular business hours, please call [...] Take antibiotic as directed Nursing Care Facility: [facility] Wound Treatment to R toes- Daily Cleanse [...] and PRN. [facility] 01-31-2024 29 Encounter addended b y: Marycarmen Corona RN on: 02/02/2024 10:55 AM Actions taken: Charge Capture section accepted [facility] 3701-31-2024 37 Return Appointment i n: 1 week - Should you experience any significant changes in your wound(s) or have any questions regarding your home care instructions please contact the wound center at [phone] If after regular business hours, please call [...] Take antibiotic as directed Nursing Care Facility: [facility] Wound Treatment to R toes- Daily Cleanse [...] and PRN. [facility] 2901-24-2024 29 Encounter addended b y: Marycarmen Corona RN on: 01/30/2024 3:44 PM Actions taken: LDA properties accepted, Charge Capture section accepted [facility] 01-24-2024 PATINS Return Appointment i n: 1 week - Should you experience any significant changes in your wound(s) or have any questions regarding your home care instructions please contact the wound center at [phone] If after regular business hours, please call [...] Take antibiotic as directed Nursing Care Facility: [facility] Wound Treatment to R toes- Daily Cleanse [...] buttocks and sacral area daily and PRN. [facility] 01-17-2024 PATINS Return Appointment i n: 1 week - Should you experience any significant changes in your wound(s) or have any questions regarding your home care instructions please contact the wound center at [phone] If after regular business hours, please call [...] Take antibiotic as directed Nursing Care Facility: [facility] Wound Treatment to R toes- Daily Cleanse [...] buttocks and sacral area daily and PRN. [facility] 01-10-2024 PATINS Return Appointment i n: 1 week - Should you experience any significant changes in your wound(s) or have any questions regarding your home care instructions please contact the wound center at [phone] If after regular business hours, please call [...] Take antibiotic as directed Nursing Care Facility: [facility] Wound Treatment to R toes- Daily Cleanse [...] buttocks and sacral area daily and PRN. [facility] 01-03-2024 PATINS Return Appointment i n: 1 week - Should you experience any significant changes in your wound(s) or have any questions regarding your home care instructions please contact the wound center at [phone] If after regular business hours, please call [...] Take antibiotic as directed Nursing Care Facility: [facility] Wound Treatment to R toes- Daily Cleanse [...] buttocks and sacral area daily and PRN. [facility] 12-27-2023 PATINS Return Appointment i n: 1 week - Should you experience any significant changes in your wound(s) or have any questions regarding your home care instructions please contact the wound center at [phone] If after regular business hours, please call [...] Take antibiotic as directed Nursing Care Facility: [facility] Wound Treatment to R toes- Daily Cleanse [...] buttocks and sacral area daily and PRN. [facility] 12-20-2023 PATINS Return Appointment i n: 1 week - Should you experience any significant changes in your wound(s) or have any questions regarding your home care instructions please contact the wound center at [phone] If after regular business hours, please call [...] Take antibiotic as directed Nursing Care Facility: [facility] Wound Treatment to R toes- Daily Cleanse [...] buttocks and sacral area daily and PRN. [facility] 12-13-2023 PATINS Return Appointment i n: 1 week - Should you experience any significant changes in your wound(s) or have any questions regarding your home care instructions please contact the wound center at [phone] If after regular business hours, please call [...] Take antibiotic as directed Nursing Care Facility: [facility] Wound Treatment to R toes- Daily Cleanse [...] buttocks and sacral area daily and PRN. [facility] 12-06-2023 PATINS Return Appointment i n: 1 week - Should you experience any significant changes in your wound(s) or have any questions regarding your home care instructions please contact the wound center at [phone] If after regular business hours, please call [...] Take antibiotic as directed Nursing Care Facility: [facility] Wound Treatment to R toes- Daily Cleanse [...] buttocks and sacral area daily and PRN. [facility] 11-29-2023 PATINS Return Appointment i n: 1 week - Should you experience any significant changes in your wound(s) or have any questions regarding your home care instructions please contact the wound center at [phone] If after regular business hours, please call [...] Take antibiotic as directed Nursing Care Facility: [facility] Wound Treatment to R toes- Daily Cleanse [...] provider verified the correct patient, procedure, equipment, life support technician, and site/side marked as required. Debridement Details [...] to treatment: procedure was tolerated well [facility] PATINSon 11-22-2023 PATINS Return Appointment i n: 1 week - Should you experience any significant changes in your wound(s) or have any questions regarding your home care instructions please contact the wound center at [phone] If after regular business hours, please call [...] Take antibiotic as directed Nursing Care Facility: [facility] Wound Treatment to R toes- Daily Cleanse [...] PRN. Normal [facility] Progress Noteon 11-17-2023 Progress Note [facility] Wound Care [facility] Nurse Visit Note Moises [place] AGE: [...] defined types were placed in this encounter. [facility] PATINSon 11-15-2023 PATINS Return Appointment i n: 1 week - Should you experience any significant changes in your wound(s) or have any questions regarding your home care instructions please contact the wound center at [phone] If after regular business hours, please call [...] Take antibiotic as directed Nursing Care Facility: [facility] Wound Treatment to R toes- Daily Cleanse [...] [facility] Progress Noteon 11-15-2023 Progress Note Assessments [...] Test Results/Process Orders 10 [] Staff telephones [facility], Nursing Homes/Clarify Orders 10 [] Routine [...] Points) Level 5 (160 or more Points) Normal [facility] PATINSon 11-08-2023 PATINS Return Appointment i n: 1 week - Should you experience any significant changes in your wound(s) or have any questions regarding your home care instructions please contact the wound center at [phone] If after regular business hours, please call [...] Take antibiotic as directed Nursing Care Facility: [facility] Wound Treatment to R toes and R leg: Daily Cleanse wound with mild soap and water and pat dry. Apply Calcium Alginate Apply dry dressing to cover the wound and secure with tape. Apply double tubi-industrial custodian On Am/off PM OK to shower if wound dressing covered Apply Barrier Cream to bilateral buttocks and sacral area daily and PRN. Normal [facility] Progress Noteon 11-08-2023 Progress Note Assessments Nursing [...] Test Results/Process Orders 10 [x] Staff telephones [facility], Nursing Homes/Clarify Orders 10 [x] Routine [...] Points) Level 5 (160 or more Points) Normal [facility] PATINSon 11-01-2023 PATINS Return Appointment i n: 1 week - Should you experience any significant changes in your wound(s) or have any questions regarding your home care instructions please contact the wound center at [phone] If after regular business hours, please call [...] Take antibiotic as directed Nursing Care Facility: [facility] Wound Treatment to R toes: Daily Cleanse [...] and sacral area daily and PRN. Normal [facility] No Panel Informationon 10-24 Julissa Taylor [...] provider verified the correct patient, procedure, equipment, life support technician, and site/side marked as required. Debridement Details [...] treatment: procedure was tolerated well [facility] 10-25-2023 PATINS Return Appointment i n: 1 week - Should you experience any significant changes in your wound(s) or have any questions regarding your home care instructions please contact the wound center at [phone] If after regular business hours, please call [...] Take antibiotic as directed Nursing Care Facility: [facility] Wound Treatment: Wound: right toes and RLE Dressing Frequency: Dressing weekly Wound Cleansing: OK to shower if wound dressing covered Apply hydrafera blue Secondary Dressing: Superabsorbent pad or sorbex Secure With: Kerlex Roll gauze 4", Silk Tape 1" Compression: Unna boot profore lite Apply Barrier Cream to bilateral buttocks and sacral area daily and PRN. [facility] 10-18-2023 PATINS Return Appointment i n: 1 week - Should you experience any significant changes in your wound(s) or have any questions regarding your home care instructions please contact the wound center at [phone] If after regular business hours, please call [...] Take antibiotic as directed Nursing Care Facility: [facility] Wound Treatment: Wound: right toes Dressing Frequency: [...] [facility] No Panel Informationon 10-10 Julissa Taylor DO 10/11/2023 11:30 AM Debridement Wound/Incision 08/23/23 Venous Ulcer Toe- second Right Performed by: Julissa Taylor DO Authorized by: Julissa Taylor, DO Consent Consent obtained? verbal Consent given by: patient Risks discussed? procedural risks discussed Immediately prior to the procedure a time out was called and the performing provider verified the correct patient, procedure, equipment, life support technician, and site/side marked as required. Debridement Details [...] to treatment: procedure was tolerated well [facility] Julissa Taylor DO 10/11/2023 11:30 AM Debridement Wound/Incision 08/23/23 Venous Ulcer Toe - third Right Performed by: Julissa Taylor DO Authorized by: Julissa Taylor, DO Consent Consent obtained? verbal Consent given by: patient Risks discussed? procedural risks discussed Immediately prior to the procedure a time out was called and the performing provider verified the correct patient, procedure, equipment, life support technician, and site/side marked as required. Debridement Details [...] instructions please contact the wound center at [phone] If after regular business hours, please call [...] help with wound healing Nursing Care Facility: [facility] Wound Treatment: Wound: right toes Dressing Frequency: Keep dressing in place all week Wound Cleansing: May shower with protection - Protect wound and dressing with water repellant cover/cast cover (e.g., large plastic bag) which can be obtained at [facility] and may take shower. Hold Collagen AG for now Secondary Dressing: Calcium Alginate 4x4 Secure With: Kerlex Roll gauze 4", Silk Tape 1" Compression: Unna boot & multilayer compression wrap - 3 layers (cover toes) Apply Barrier Cream to bilateral buttocks and sacral area daily and PRN. Normal [facility] No Panel Informationon 10-03 Julissa Taylor DO 10/04/2023 4:29 PM Debridement Wound/Incision 08/23/23 Venous Ulcer Toe- second Right Performed by: Julissa Taylor DO Authorized by: Julissa Taylor, DO Consent Consent obtained? verbal Consent given by: patient Risks discussed? procedural risks discussed Immediately prior to the procedure a time out was called and the performing provider verified the correct patient, procedure, equipment, life support technician, and site/side marked as required. Debridement Details [...] to treatment: procedure was tolerated well [facility] Julissa Taylor DO 10/04/2023 4:29 PM Debridement Wound/Incision 08/23/23 Venous Ulcer Toe - third Right Performed by: Julissa Taylor DO Authorized by: Julissa Taylor DO Consent Consent obtained? verbal Consent given by: patient Risks discussed? procedural risks discussed Immediately prior to the procedure a time out was called and the performing provider verified the correct patient, procedure, equipment, life support technician, and site/side marked as required. Debridement Details [...] tolerated well [facility] PATINSon 10-04-2023 PATINS Return Appointment i n: 1 week - Should you experience any significant changes in your wound(s) or have any questions regarding your home care instructions please contact the wound center at [phone] If after regular business hours, please call [...] help with wound healing Nursing Care Facility: [facility] Wound Treatment: Wound: right toes Dressing Frequency: Keep dressing in place all week Wound Cleansing: May shower with protection - Protect wound and dressing with water repellant cover/cast cover (e.g., large plastic bag) which can be obtained at [facility] and may take shower. Primary Dressing: Collagen Ag 2x2 Secondary Dressing: Calcium Alginate 4x4 Secure With: Kerlex Roll gauze 4", Silk Tape 1" Compression: Unna boot & multilayer compression wrap - 3 layers (cover toes) Apply Barrier Cream to bilateral buttocks and sacral area daily and PRN. [facility] 09-27-2023 PATINS Return Appointment i n: 1 week - Should you experience any significant changes in your wound(s) or have any questions regarding your home care instructions please contact the wound center at [phone] If after regular business hours, please call [...] help with wound healing Nursing Care Facility: [facility] Wound Treatment: Wound: right toes Dressing Frequency: Keep dressing in place all week Wound Cleansing: May shower with protection - Protect wound and dressing with water repellant cover/cast cover (e.g., large plastic bag) which can be obtained at [facility] and may take shower. Primary Dressing: Collagen Ag 2x2 Secondary Dressing: Calcium Alginate 4x4 Secure With: Kerlex Roll gauze 4", Silk Tape 1" Compression: Unna boot & multilayer compression wrap - 3 layers (cover toes) [facility] 09-20-2023 PATI Return Appointment i n: 1 week - Should you experience any significant changes in your wound(s) or have any questions regarding your home care instructions please contact the wound center at [phone] If after regular business hours, please call [...] help with wound healing Nursing Care Facility: [facility] Wound Treatment: Wound: right toes Dressing Frequency: Keep dressing in place all week Wound Cleansing: May shower with protection - Protect wound and dressing with water repellant cover/cast cover (e.g., large plastic bag) which can be obtained at [facility] and may take shower. Primary Dressing: Collagen Ag 2x2 Secondary Dressing: Calcium Alginate 4x4 Secure With: Kerlex Roll gauze 4", Silk Tape 1" Compression: Unna boot & multilayer compression wrap - 3 layers (cover toes) Normal [facility] No Panel Informationon 09-12 Julissa Taylor DO 09/13/2023 3:24 PM Debridement Wound/Incision 08/23/23 Venous Ulcer Toe- second Right Performed by: Julissa Taylor DO Authorized by: Julissa Taylor, DO Consent Consent obtained? verbal Consent given by: patient Risks discussed? procedural risks discussed Immediately prior to the procedure a time out was called and the performing provider verified the correct patient, procedure, equipment, life support technician, and site/side marked as required. Debridement Details [...] to treatment: procedure was tolerated well [facility] Julissa Taylor DO 09/13/2023 3:24 PM Debridement Wound/Incision 08/23/23 Venous Ulcer Toe - third Right Performed by: Julissa Taylor DO Authorized by: Julissa Taylor, DO Consent Consent obtained? verbal Consent given by: patient Risks discussed? procedural risks discussed Immediately prior to the procedure a time out was called and the performing provider verified the correct patient, procedure, equipment, life support technician, and site/side marked as required. Debridement Details [...] Response to treatment: procedure was tolerated well [facility] Return Appointment i n: 1 week - Should you experience any significant changes in your wound(s) or have any questions regarding your home care instructions please contact the wound center at [phone] If after regular business hours, please call [...] help with wound healing Nursing Care Facility: [facility] Wound Treatment: Wound: right toes & lower leg Dressing Frequency: Keep dressing in place all week Wound Cleansing: May shower with protection - Protect wound and dressing with water repellant cover/cast cover (e.g., large plastic bag) which can be obtained at [facility] and may take shower. Primary Dressing: Collagen Ag 2x2 Secondary Dressing: Calcium Alginate 4x4 & hydralock Secure With: Kerlex Roll gauze 4", Silk Tape 1" Compression: Unna boot & multilayer compression wrap - 3 layers (cover toes) Normal [facility] No Panel Informationon 09-05 Julissa Taylor DO 09/06/2023 3:16 PM Debridement Wound/Incision 08/23/23 Venous Ulcer Toe- second Right Performed by: Julissa Taylor DO Authorized by: Julissa Taylor, DO Consent Consent obtained? verbal Consent given by: patient Risks discussed? procedural risks discussed Immediately prior to the procedure a time out was called and the performing provider verified the correct patient, procedure, equipment, life support technician, and site/side marked as required. Debridement Details [...] to treatment: procedure was tolerated well [facility] Julissa Taylor DO 09/06/2023 3:16 PM Debridement Wound/Incision 08/23/23 Venous Ulcer Toe - third Right Performed by: Julissa Taylor DO Authorized by: Julissa Taylor, DO Consent Consent obtained? verbal Consent given by: patient Risks discussed? procedural risks discussed Immediately prior to the procedure a time out was called and the performing provider verified the correct patient, procedure, equipment, life support technician, and site/side marked as required. Debridement Details [...] provider verified the correct patient, procedure, equipment, life support technician, and site/side marked as required. Debridement Details [...] tolerated well [facility] PATINSon 09-06-2023 PATINS Return Appointment i n: 1 week - Should you experience any significant changes in your wound(s) or have any questions regarding your home care instructions please contact the wound center at [phone] If after regular business hours, please call [...] help with wound healing Nursing Care Facility: [facility] Wound Treatment: Wound: right toes & lower leg Dressing Frequency: Keep dressing in place all week Wound Cleansing: May shower with protection - Protect wound and dressing with water repellant cover/cast cover (e.g., large plastic bag) which can be obtained at [facility] and may take shower. Primary Dressing: Collagen Ag 2x2 Secondary Dressing: Calcium Alginate 4x4 & hydralock Secure With: Kerlex Roll gauze 4", Silk Tape 1" Compression: Unna boot & multilayer compression wrap - 3 layers (cover toes) Normal [facility] No Panel Informationon 08-29 Julissa Taylor DO 08/30/2023 2:41 PM Debridement Wound/Incision 08/23/23 Venous Ulcer Leg Right;Circumferential Performed by: Julissa Taylor DO Authorized by: Julissa Taylor, DO Consent Consent obtained? verbal Consent given by: patient Risks discussed? procedural risks discussed Immediately prior to the procedure a time out was called and the performing provider verified the correct patient, procedure, equipment, life support technician, and site/side marked as required. Debridement Details [...] Response to treatment: [facility] Return Appointment i n: 1 week - Should you experience any significant changes in your wound(s) or have any questions regarding your home care instructions please contact the wound center at [phone] If after regular business hours, please call [...] help with wound healing Nursing Care Facility: [facility] Wound Treatment: Wound: right toes & lower leg Dressing Frequency: Keep dressing in place all week Wound Cleansing: May shower with protection - Protect wound and dressing with water repellant cover/cast cover (e.g., large plastic bag) which can be obtained at [facility] and may take shower. Primary Dressing: Collagen Ag 2x2 Secondary Dressing: Calcium Alginate 4x4 & hydralock Secure With: Kerlex Roll gauze 4", Silk Tape 1" Compression: Unna boot & multilayer compression wrap - 3 layers (cover toes) [facility] PATINSon 08-23-2023 PATINS Return Appointment i n: 1 week - Should you experience any significant changes in your wound(s) or have any questions regarding your home care instructions please contact the wound center at [phone] If after regular business hours, please call [...] help with wound healing Nursing Care Facility: [facility] Wound Treatment: Wound: right toes & lower leg Dressing Frequency: Keep dressing in place all week Wound Cleansing: May shower with protection - Protect wound and dressing with water repellant cover/cast cover (e.g., large plastic bag) which can be obtained at [facility] and may take shower. Primary Dressing: Collagen Ag 2x2 Secondary Dressing: Calcium Alginate 4x4 & hydralock Secure With: Kerlex Roll gauze 4", Silk Tape 1" Compression: Unna boot & multilayer compression wrap - 3 layers (cover toes) Normal [facility] Progress Noteon 08-23-[address] [facility] [address] [place] [address] Loc: [phone] Wound Care Visit - New Patient Progress [...] , Rfl: cholecalciferol (Vitamin D3) 1.25 MG (16229 UT) tablet, Take by mouth 1 (one) [...] sprinkle (De (more content not included)... Normal [facility] Basophil percentageOrdered B y: Demetrius Fenton on 07-16-2023 Basophil percentage 25-50 SEEN /hpf 0-5 [facility] Bilirubin Test strip Ql (U)O rdered By: Demetrius Fenton on 07-16-2023 Bilirubin Ql (U) Negative Negative [facility] Ketones Test strip Ql (U)Ord ered By: Demetrius Fenton on 07-16-2023 Ketones Ql (U) 5 mg/dl Negative [facility] Mucus LM Ql (Urine sed)Order ed By: Demetrius Fenton on 07-16-2023 Mucus Ql (Urine sed) 0 SEEN /hpf [facility] Nitrite Test strip Ql (U)Ord ered By: Demetrius Fenton on 07-16-2023 Nitrite Ql (U) Positive Negative [facility] No Panel InformationOrdered By: Demetrius Fenton on 07-16-2023 Urine RBC 0 SEEN /hpf 0-5 [facility] Protein Test strip Ql (U)Ord ered By: Demetrius Fenton on 07-16-2023 Protein Ql (U) Negative Negative [facility] Squamous epithelial cells de tection in urine sediment by light microscopyOrdered By: Demetrius Fenton on 07-16-2023 Epithelial cells.squamous LM Ql (Urine sed) 0-5 SEEN /hpf 0-5 [facility] Urine blood detectionOrdered By: Demetrius Fenton on 07-16-2023 RBC Ql (U) Negative Negative [facility] Urine clarityOrdered By: Miriam Fenton on 07-16-2023 Clarity (U) Sl. Cloudy Clear [facility] Urine color determinationOrd ered By: Demetrius Fenton on 07-16-2023 Color (U) Yellow Yellow [facility] Urine glucose detectionOrder ed By: Demetrius Fenton on 07-16-2023 Glucose Ql (U) Normal mg/dl Normal [facility] Urine leukocyte esterase det ection by dipstickOrdered By: Demetrius Fenton on 07-16-2023 Leukocyte esterase Test strip Ql (U) 500 /ul Negative [facility] Urine pHOrdered By: Demetrius astorga on 07-16-2023 pH (U) 6.0 [pH] 5.0 - 8.0 [facility] Urine sediment bacteria coun t by microscopy (number/high power field)Ordered By: Demetrius Fenton on 07-16-2023 Bacteria LM.HPF (Urine sed) [#/Area] 2 /[HPF] None Seen [facility] Urine specific gravity measu rementOrdered By: Demetrius Fenton on 07-16-2023 Specific gravity (U) [Rel density] 1.015 1.002-1.030 [facility] Urine urobilinogen measureme ntOrdered By: Demetrius Fenton on 07-16-2023 Urobilinogen Ql (U) 1 mg/dl Normal [facility] Bacteria identified Cx Nom ( Wound)Ordered By: Demetrius Fenton on 06-28-2023 Wound Culture Meth. resistant Stap h. aureus [facility] Wound Culture Enterococcus faecalis [facility] Wound Culture Acinetobacter junii Wo [facility] Wound Culture Pseudomonas aeruginosa [facility] Gram stain for investigation of transfusion reactionOrdered By: Demetrius Fenton on 06-28-2023 Microscopic observation Gram stain Nom (Unsp spec) [facility] Bacteria identified Cx Nom ( Wound)Ordered By: Demetrius Fenton on 06-27-2023 Wound Culture Pseudomonas aeruginosa [facility] Wound Culture Enterococcus faecalis [facility] Gram stain for investigation of transfusion reactionOrdered By: Demetrius Fenton on 06-27-2023 Microscopic observation Gram stain Nom (Unsp spec) [facility] BLOOD CULTUREon 06-23-2023 Bacteria identified Cx Nom (Bld) BLOOD CULTURE Reference No growth at 5 days ORDER COMMENTS: Blood Collection Site: Left Forearm [ S = SUSCEPTIBLE R = RESISTANT I = INTERMEDIATE S-DD = Susceptible-dose dependent NS = Non-susceptible NO = No Interpretation ] Normal [facility] Comment on above: Performed By: #### L [id number] #### [employer]: SHARLA FINNEY ([id number]) [facility]) [address] [place] [address] CT ABDOMEN PELVIS W CONTRAST on 06-23-2023 CT ABDOMEN PELVIS W CONTRAST Patient Name: MOISES MADRID : 1960 [id number] Exam Date/Time: 06/23/2023 00:08 Procedure: CT ABDOMEN [...] arm and left has shoulder issues. Normal [facility] CT Abdomen and Pelvis W cont rast Constantine 06-23-2023 No evidence of acute pathology within the abdomen or pelvis. Interval decrease in size of peripancreatic fluid collection likely representing sequela of remote pancreatitis. Constipation. Report Dictated on Electronically Signed By: Barry Castillo MD Electronically Signed Date/Time: 06/23/2023 12:33 AM EDT [facility] Patient Name: MOISES VERONICA : 1960 [...] No evidence of acute fracture or dislocation. [facility] Barry Castillo MD - 06/23/2023 Patient Name: MOISES MADRID : 1960 [id number] Exam Date/Time: 06/23/2023 00:08 Procedure: CT ABDOMEN [...] Electronically Signed Date/Time: 06/23/2023 12:33 AM EDT [employer] CT Abdomen and Pelvis W cont rast IVOrdered By: Barry Castillo on 06-23-2023 [facility] Work Phone: ED Nursing Noteon 06-23-2023 ED Nursing Note Sunol Cong called and given patient update and ETA for discharge/transport Danyell Mcneill RN 06/23/[address] [facility] ED Nursing Note [facility] ETA 0300 Danyell Mcneill RN 06/23/[address] [facility] No Panel InformationOrdered By: Jose Phillips on 06-23-2023 P [place] 44 degrees [facility] Work Phone: ND Interval 159 ms [facility] Work Phone: QRS [place] -36 degrees [facility] Work Phone: QRSD Interval 108 ms [facility] [employer] Work Phone: QT Interval 430 ms [facility] Work Phone: QTC Interval 476 ms [facility] Work Phone: T Wave [place] 28 degrees [facility] Work Phone: [facility] Work Phone: No Panel Informationon 06-22 Jose Phillips D O - 06/23/2023 IMPRESSION: Sinus rhythm Abnormal R-wave progression, early transition Left ventricular hypertrophy Borderline prolonged QT interval Compared to ECG 06/09/22 Tachycardia no longer present LEFT VENTRICULAR HYPERTROPHY again noted Electronically Signed On 06-23-2023 00:11:27 EDT by Jose Phillips [facility] [employer] Vital signsOrdered By: Lacie Phillips on 06-23-2023 Heart rate 73 /min bpm [facility] Work Phone: BLOOD CULTUREon 06-22-2023 Bacteria identified Cx Nom (Bld) BLOOD CULTURE Reference No growth at 5 days ORDER COMMENTS: Blood Collection Site: Left Forearm [ S = SUSCEPTIBLE R = RESISTANT I = INTERMEDIATE S-DD = Susceptible-dose dependent NS = Non-susceptible NO = No Interpretation ] [facility] Comment on above: Performed By: #### L [id number] ####[employer]: SHARLA FINNEY ([id number])[facility] ([facility])[address] [place] [address] CBC W Auto Differential pane l (Bld)on [...] High NINF - 0.1 10*3/uL [facility] Immature granulocytes/100 WBC (Bld) 0.5 % [...] 1.0 10*3/uL High 0.0 - 0.9 10*3/uL [facility] Monocytes/100 WBC (Bld) 9.5 % 5.0 - [...] 10.5 10*3/uL 3.6 - 10.7 10*3/uL [facility] CBC WITH AUTO DIFFERENTIALon 06-22-2023 Basophils (Bld) [#/Vol] 0.1 10*3/uL Normal 0.0-0.2 [facility] Comment on above: Performed By: #### L [id number] #### [employer]: SHARLA FINNEY ([id number]) [facility] ([facility]) [address] [place] [address] [place] Basophils/100 WBC (Bld) 0.5 % Normal 0.0-2.0 [facility] Comment on above: Performed By: #### L [id number] #### [employer]: SHARLA FINNEY ([id number]) [facility] ([facility]) [address] [place] [address] [place] Eosinophils (Bld) [#/Vol] 0.3 10*3/uL Normal 0.0-0.5 [facility] Comment on above: Performed By: #### L [id number] #### [employer]: SHARLA FINNEY ([id number]) [facility] ([facility]) [address] [place] [address] [place] Eosinophils/100 WBC (Bld) 2.7 % Normal 0.0-6.0 [facility] Comment on above: Performed By: #### L [id number] #### [employer]: SHARLA [id number]) [facility]) [address] [place] [address] Erythrocyte distribution width (RBC) [Ratio] 13.1 % Normal 11.5-15.0 [facility] Comment on above: Performed By: #### L [id number] #### [employer]: SHARLA FINNEY ([id number]) [facility]) [address] [place] [address] Hematocrit (Bld) [Volume fraction] 44.6 % Normal 40.0-52.0 [facility] Comment on above: Performed By: #### L [id number] #### [employer]: SHARLA FINNEY ([id number]) [facility]) [address] [place] [address] Hemoglobin (Bld) [Mass/Vol] 15.1 g/dL Normal 13.0-18.0 [facility] Comment on above: Performed By: #### L [id number] #### [employer] Builder: SHARLA FINNEY ([id number]) [facility] ([facility]) [address] [place] [address] IMMATURE GRANS % 0.5 % Normal 0.0-2.0 [facility] Comment on above: Performed By: #### L [id number] #### [employer] Builder: SHARLA FINNEY ([id number]) [facility] ([facility]) [address] [place] [address] IMMATURE GRANS ABSOLUTE 0.1 10*3/uL High <0.1 [facility] Comment on above: Performed By: #### L [id number] #### [employer] Builder: SHARLA FINNEY ([id number]) [facility]) [address] [place] [address] Lymphocytes (Bld) [#/Vol] 2.7 10*3/uL Normal 1.0-4.3 [facility] Comment on above: Performed By: #### L [id number] #### [employer]: SHARLA FINNEY ([id number]) [facility]) [address] [place] [address] Lymphocytes/100 WBC (Bld) 25.5 % Normal 15.0-45.0 [facility] Comment on above: Performed By: #### L [id number] #### [employer]: SHARLA FINNEY ([id number]) [facility]) [address] [place] [address] MCH (RBC) [Entitic mass] 30.6 pg Normal 26.0-34.0 [facility] Comment on above: Performed By: #### L [id number] #### [employer] Builder: SHARLA FINNEY ([id number]) [facility] ([facility]) [address] [place] [address] MCHC 33.9 % Normal 30.5-36.0 [facility] Comment on above: Performed By: #### L [id number] #### [employer] Builder: SHARLA FINNEY ([id number]) [facility]) [address] [place] [address] MCV (RBC) [Entitic vol] 90.5 fL Normal 77.0-99.0 [facility] Comment on above: Performed By: #### L [id number] #### [employer] Builder: SHARLA FINNEY ([id number]) [facility] ([facility]) [address] [place] [address] Monocytes (Bld) [#/Vol] 1.0 10*3/uL High 0.0-0.9 [facility] Comment on above: Performed By: #### L [id number] #### [employer] Builder: SHARLA FINNEY ([id number]) [facility] ([facility]) [address] [place] [address] Monocytes/100 WBC (Bld) 9.5 % Normal 5.0-13.0 [facility] Comment on above: Performed By: #### L [id number] #### [employer] Builder: SHARLA FINNEY ([id number]) [facility]) [address] [place] [address] NEUTROPHILS ABSOLUTE 6.5 10*3/uL Normal 1.8-7.5 [facility] Comment on above: Performed By: #### L [id number] #### [employer] Builder: SHARLA FINNEY ([id number]) [facility] ([facility]) [address] [place] [address] Neutrophils/100 WBC (Bld) 61.3 % Normal 38.0-82.0 [facility] Comment on above: Performed By: #### L [id number] #### [employer] Builder: SHARLA FINNEY ([id number]) [facility] [address] [place] [address] NRBC 0.0 /100 WBCs Normal 0.0-2.0 [facility] Comment on above: Performed By: #### L [id number] #### [employer] Builder: SHARLA FINNEY ([id number]) [facility] ([facility]) [address] [place] [address] Platelet mean volume (Bld) [Entitic vol] 10.7 fL Normal 9.0-12.7 [facility] Comment on above: Performed By: #### L [id number] #### [employer] Builder: SHARLA FINNEY ([id number]) [facility] [address] [place] [address] Platelets (Bld) [#/Vol] 181 10*3/uL Normal 140-440 [facility] Comment on above: Performed By: #### L [id number] #### [employer] Builder: SHARLA FINNEY ([id number]) [facility] ([facility]) [address] [place] [address] RBC (Bld) [#/Vol] 4.93 10*6/uL Normal 4.40-5.90 [facility] Comment on above: Performed By: #### L [id number] #### [employer]: SHARLA FINNEY ([id number]) [facility] ([facility]) [address] [place] [address] WBC (Bld) [#/Vol] 10.5 10*3/uL Normal 3.6-10.7 [facility] Comment on above: Performed By: #### L [id number] #### [employer] Builder: SHARLA FINNEY ([id number]) [facility] ([facility]) [address] [place] [address] COMPREHENSIVE METABOLIC PANE Micah 03-14-2024 Albumin [Mass/Vol] 3.9 g/dL Normal 3.5-5.0 [facility] Comment on above: Performed By: #### L [id number] #### [employer]: SHARLA FINNEY ([id number]) [facility] ([facility]) [address] [place] [address] ALP [Catalytic activity/Vol] 80 U/L Normal 38-126 [facility] Comment on above: Performed By: #### L [id number] #### [employer] Builder: SHARLA FINNEY ([id number]) [facility] ([facility]) [address] [place] [address] ALT [Catalytic activity/Vol] 29 U/L Normal 0-49 [facility] Comment on above: Performed By: #### L [id number] #### [employer] Builder: SHARLA FINNEY ([id number]) [facility] ([facility]) [address] [place] [address] Anion gap [Moles/Vol] 5 mmol/L Normal 3-13 [facility] Comment on above: Performed By: #### L [id number] #### [employer] Builder: SHARLA FINNEY ([id number]) [facility] ([facility]) [address] [place] [address] AST [Catalytic activity/Vol] 26 U/L Normal 15-46 [facility] Comment on above: Performed By: #### L [id number] #### [employer]: SHARLA FINNEY ([id number]) [facility] ([facility]) [address] [place] [address] Bilirubin [Mass/Vol] 0.7 mg/dL Normal 0.2-1.3 [facility] Comment on above: Performed By: #### L [id number] #### [employer] Builder: SHARLA FINNEY ([id number]) [facility] ([facility]) [address] [place] [address] Calcium [Mass/Vol] 9.3 mg/dL Normal 8.4-10.4 [facility] Comment on above: Performed By: #### L [id number] #### [employer] Builder: SHARLA FINNEY ([id number]) [facility] ([facility]) [address] [place] [address] Chloride [Moles/Vol] 101 mmol/L Normal 98-107 [facility] Comment on above: Performed By: #### L [id number] #### [employer] Builder: SHARLA FINNEY ([id number]) [facility] ([facility]) [address] [place] [address] [place] CO2 [Moles/Vol] 30 mmol/L Normal 22-30 [facility] Comment on above: Performed By: #### L [id number] #### [employer] Builder: SHARLA FINNEY ([id number]) [facility] ([facility]) [address] [place] [address] Creatinine [Mass/Vol] 0.89 mg/dL Normal 0.66-1.25 [facility] Comment on above: Performed By: #### L [id number] #### [employer] Builder: SHARLA FINNEY ([id number]) [facility] [address] [place] [address] GLOMERULAR FILTRATION RATE ML/MIN/1.73 SQ M.PREDICTED >90.0 Normal >60.0 [facility] Comment on above: Result Comment: Calc ulation based on the Chronic Kidney Disease Epidemiology Collaboration (CKD-EPI) equation refit without adjustment for race Performed By: #### L [id number] #### [employer]: SHARLA FINNEY ([id number]) [facility] [address] [place] [address] [place] Glucose [Mass/Vol] 188 mg/dL High 70-100 [facility] Comment on above: Performed By: #### L [id number] #### [employer] Builder: SHARLA FINNEY ([id number]) [facility] ([facility]) [address] [place] [address] Potassium [Moles/Vol] 4.4 mmol/L Normal 3.5-5.1 [facility] Comment on above: Performed By: #### L [id number] #### [employer] Builder: SHARLA FINNEY ([id number]) [facility] ([address] Protein [Mass/Vol] 7.1 g/dL Normal 6.3-8.2 [facility] Comment on above: Performed By: #### L [id number] #### [employer] Builder: SHARLA FINNEY ([id number]) [facility]) [address] [place] [address] Sodium [Moles/Vol] 136 mmol/L Normal 135-145 [facility] Comment on above: Performed By: #### L [id number] #### [employer] Builder: SHARLA FINNEY ([id number]) [facility]) [address] [place] [address] Urea nitrogen [Mass/Vol] 17 mg/dL Normal 9-20 [facility] Comment on above: Performed By: #### L [id number] #### [employer]: SHARLA FINNEY ([id number]) [facility]) [address] [place] [address] CT Abdomen and Pelvis W cont rast Constantine 06-22-2023 Radiology Study observation (narrative) [facility] alth CULTURE ANAEROBICon 06-22-19 24 CULTURE ANAEROBIC ANAEROBIC CULTURE Reference No growth at 5 days [ S = SUSCEPTIBLE R = RESISTANT I = INTERMEDIATE S-DD = Susceptible-dose dependent NS = Non-susceptible NO = No Interpretation ] Normal [facility] Comment on above: Performed By: #### L [id number] #### [employer]: SHARLA FINNEY ([id number]) [facility]) [address] [place] [address] CULTURE, AEROBIC BACTERIA WI TH GRAM STAINon [...] ] Normal [facility] Comment on above: Performed By: #### L [id number] #### [employer]: SHARLA FINNEY ([id number]) [facility] ([facility]) [address] [place] [address] Comprehensive metabolic 1998 panelon 06-22-2023 Albumin [Mass/Vol] [...] who presents to the emergency department from half-way for complaints of actual onset intermittent right [...] Historical Med cholecalciferol (Vitamin D3) 1.25 MG (44797 UT) tablet Take by mouth 1 (one) [...] not crush (more content not included)... Normal [facility] ED Provider Note Emergency Department Encounter [facility] ED Patient: Moises Madrid : 1960 Date of Evaluation: 06/22/2023 ED Supervising Physician: Fred Holloway MD I independently examined and evaluated Moises Madrid. This will serve as my Supervisory note as the home health care case manager of record and shared attestation. I did [...] for clarification.) Fred Holloway MD [facility] Fred Holloway MD 06/23/23 1812 Normal [facility] LIPASEon 06-22-2023 Lipase [Catalytic activity/Vol] 138 U/L Normal 23-300 [facility] Comment on above: Performed By: #### L [id number] #### [employer]: SHARLA FINNEY ([id number]) [facility] ([facility]) [address] [place] [address] Laboratory - Chemistry and C hemistry - challengeon 06-22-2023 Troponin I.cardiac [Mass/Vol] ng/mL NINF - 0.034 ng/mL [facility] Lipase [Catalytic activity/Vol] 138 U/L 23 - 300 U/L [facility] [employer] Lipase [Catalytic activity/V ol]on 06-22-2023 Interpretation and [...] the results and send in prescription. Normal [facility] Progress Note Culture result reviewed. Awaiting sensitivity results Normal [facility] TROPONIN Ion 06-22-2023 Troponin I.cardiac [Mass/Vol] ng/mL Normal <0.034 [facility] Comment on above: Result Comment: [facility] [place] COMMENTS: Patients with high levels of Biotin oral intake (ie >5 mg/day) may have falsely decreased Troponin levels. Performed By: #### L [id number] #### [employer]: SHARLA FINNEY ([id number]) [facility] [address] [place] [address] Troponin I.cardiac [Mass/Vol ]on 06-22-2023 Interpretation and review of laboratory results Normal [facility] Patients with high levels of Biotin oral intake (ie >5 mg/day) may have falsely decreased Troponin levels. [facility] Basophil percentageOrdered B y: Demetrius Fenton on 06-12-2023 Chloride [Moles/Vol] 105 mmol/L 98-107 [facility] Glucose [Mass/Vol] 118 mg/dL 74-106 [facility] Comment on above: Fasting Glucose resu lt from 100 to 125 mg/dL suggests IMPAIRED HOMEOSTASIS per A.D.A. criteria. Hemoglobin (Bld) [Mass/Vol] 15.1 g/dL 13.0-16.5 [facility] Potassium [Moles/Vol] 4.3 mmol/L 3.5-5.1 [facility] Sodium [Moles/Vol] 136 mmol/L 136-145 [facility] WBC (Bld) [#/Vol] 7.2 10*3/uL 4.4-11.0 [facility] Determination of erythrocyte mean corpuscular volume (MCV)Ordered By: Demetrius Fenton on 06-12-2023 MCV (RBC) [Entitic vol] 89.3 fL 80-94 [facility] Erythrocyte distribution wid th ratioOrdered By: Demetrius Fenton on 06-12-2023 Erythrocyte distribution width (RBC) [Ratio] 13.2 % 11.6-14.6 [facility] Erythrocyte distribution wid th standard deviationOrdered By: Demetrius Fenton on 06-12-2023 Erythrocyte distribution width (RBC) [Entitic vol] 41.8 fL 35.1-43.9 [facility] Hematocrit Auto (Bld) [Volum e fraction]Ordered By: Demetrius Fenton on 06-12-2023 Hematocrit (Bld) [Volume fraction] 45.2 % 40-54 [facility] Laboratory - Chemistry and C hemistry - challengeOrdered By: Demetrius Fenton on 06-12-2023 CO2 [Moles/Vol] 27.0 mmol/L 21.0-32.0 [facility] Urea nitrogen/Creatinine [Mass ratio] 15.7 mg/mg 10-20 [facility] - Hematology and Cell countsOrdered By: Demetrius Fenton on 06-12-2023 MCH (RBC) [Entitic mass] 29.8 pg 27.0-32.0 [facility] MCHC (RBC) [Mass/Vol] 33.4 g/dL 32-36 [facility] Platelet mean volume (Bld) [Entitic vol] 11.2 fL 6.2-12.0 [facility] Platelets (Bld) [#/Vol] 154 10*3/uL 150-450 [facility] No Panel InformationOrdered By: Demetrius Fenton on 06-12-2023 Estimated GFR (MDRD) Amer 90 mL/min >60 [facility] Comment on above: GFR Calc Estimated GFR (MDRD) Non-Af Amer 74 mL/min >60 [facility] Comment on above: Non- GFR Calc RBC Auto (Bld) [#/Vol]Ordere d By: Demetrius Fenton on 06-12-2023 RBC (Bld) [#/Vol] 5.06 10*6/uL 4.6-6.2 [facility] Serum or plasma calcium roseanne urement (mass/volume)Ordered By: Demetrius Fenton on 06-12-2023 Calcium [Mass/Vol] 9.5 mg/dL 8.5-10.1 [facility] Serum or plasma creatinine m easurement (mass/volume)Ordered By: Demetrius Fenton on 06-12-2023 Creatinine [Mass/Vol] 1.08 mg/dL 0.70-1.30 [facility] Comment on above: The validity of the calculated GFR & GFRAA in patients over 70 years has not been determined. Clinical correlation is essential. Serum or plasma urea nitroge n measurement (mass/volume)Ordered By: Demetrius Fenton on 06-12-2023 Urea nitrogen [Mass/Vol] 17 mg/dL 7-18 [facility] Thin prep Papanicolaou smear with manual screeningOrdered By: Demetrius Fenton on 06-12-2023 Thin prep Papanicolaou smear with manual screening 4 5-15 [facility] Whole blood hemoglobin A1c/t otal hemoglobin ratio (mass fraction)Ordered By: Demetrius Fenton on 06-12-2023 HbA1c (Bld) [Mass fraction] 6.5 % 3.8-5.6 [facility] Comment on above: Normal < 5.7 % Predi abetic 5.7 - 6.4 % Diabetic >or= 6.5 % Please note range changes. Basophil percentageOrdered B y: Demetrius Fenton on 03-14-2023 Bilirubin [Mass/Vol] 0.90 mg/dL 0.20-1.00 [facility] Comment on above: For patients on eltr ombopag therapy, use of Dimension Ruby TBIL is not recommended. Chloride [Moles/Vol] 104 mmol/L 98-107 [facility] Glucose [Mass/Vol] 131 mg/dL 74-106 [facility] Comment on above: Fasting Glucose resu lt greater than or equal to 126 mg/dL suggests DIABETES MELLITUS per A.D.A. criteria. Potassium [Moles/Vol] 4.8 mmol/L 3.5-5.1 [facility] Protein [Mass/Vol] 6.9 g/dL 6.4-8.2 [facility] Sodium [Moles/Vol] 137 mmol/L 136-145 [facility] WBC (Bld) [#/Vol] 6.4 10*3/uL 4.4-11.0 [facility] Blood erythrocytes count (nu mber/volume)Ordered By: Demetrius Fenton on 03-14-2023 RBC (Bld) [#/Vol] 4.77 10*6/uL 4.6-6.2 [facility] Blood hemoglobin measurement (mass/volume)Ordered By: Demetrius Fenton on 03-14-2023 Hemoglobin (Bld) [Mass/Vol] 14.3 g/dL 13.0-16.5 [facility] Blood platelet mean volumeOr dered By: Demetrius Fenton on 03-14-2023 Platelet mean volume (Bld) [Entitic vol] 11.3 fL 6.2-12.0 [facility] Determination of erythrocyte mean corpuscular volume (MCV)Ordered By: Demetrius Fenton on 03-14-2023 MCV (RBC) [Entitic vol] 90.8 fL 80-94 [facility] Hematocrit Auto (Bld) [Volum e fraction]Ordered By: Demetrius Fenton on 03-14-2023 Hematocrit (Bld) [Volume fraction] 43.3 % 40-54 [facility] Laboratory - Chemistry and C hemistry - challengeOrdered By: Demetrius Fenton on 03-14-2023 ALP [Catalytic activity/Vol] 85 U/L 45-117 [facility] ALT [Catalytic activity/Vol] 36 U/L 16-61 [facility] CO2 [Moles/Vol] 29.0 mmol/L 21.0-32.0 [facility] Globulin (S) [Mass/Vol] 3.6 g/dL 2.2-4.2 [facility] Urea nitrogen/Creatinine [Mass ratio] 19.6 mg/mg 10-20 [facility] - Hematology and Cell countsOrdered By: Demetrius Fenton on 03-14-2023 Erythrocyte distribution width (RBC) [Entitic vol] 42.7 fL 35.1-43.9 [facility] Erythrocyte distribution width (RBC) [Ratio] 13.1 % 11.6-14.6 [facility] MCH (RBC) [Entitic mass] 30.0 pg 27.0-32.0 [facility] MCHC Auto (RBC) [Mass/Vol]Or dered By: Demetrius Fenton on 03-14-2023 MCHC (RBC) [Mass/Vol] 33.0 g/dL 32-36 [facility] No Panel InformationOrdered By: Demetrius Fenton on 03-14-2023 Estimated GFR (MDRD) Amer 91 mL/min >60 [facility] Comment on above: GFR Calc Estimated GFR (MDRD) Non-Af Amer 75 mL/min >60 [facility] Comment on above: Non- GFR Calc Valproic Acid (Depakene) Level 30 ug/mL 50-100 [facility] Platelets bldOrdered By: Pet tanisha Fenton on 03-14-2023 Platelets (Bld) [#/Vol] 158 10*3/uL 150-450 [facility] Serum or plasma albumin roseanne urement (mass/volume)Ordered By: Demetrius Fenton on 03-14-2023 Albumin [Mass/Vol] 3.3 g/dL 3.2-5.0 [facility] Serum or plasma albumin/glob ulin mass ratioOrdered By: Demetrius Fenton on 03-14-2023 Albumin/Globulin [Mass ratio] 0.9 {ratio} 0.9-2.4 [facility] Serum or plasma calcium roseanne urement (mass/volume)Ordered By: Demetrius Fenton on 03-14-2023 Calcium [Mass/Vol] 8.7 mg/dL 8.5-10.1 [facility] Serum or plasma creatinine m easurement (mass/volume)Ordered By: Demetrius Fenton on 03-14-2023 Creatinine [Mass/Vol] 1.07 mg/dL 0.70-1.30 [facility] Comment on above: The validity of the calculated GFR & GFRAA in patients over 70 years has not been determined. Clinical correlation is essential. Serum or plasma urea nitroge n measurement (mass/volume)Ordered By: Demetrius Fenton on 03-14-2023 Urea nitrogen [Mass/Vol] 21 mg/dL 7-18 [facility] Thin prep Papanicolaou smear with manual screeningOrdered By: Demetrius Fenton on 03-14-2023 Thin prep Papanicolaou smear with manual screening 23 U/L 15-37 [facility] Thin prep Papanicolaou smear with manual screening 4 5-15 [facility] Basophil percentageOrdered B y: Demetrius Fenton on 03-13-2023 Cholesterol [Mass/Vol] 139 mg/dL <200 [facility] Comment on above: <200 mg/dL Desirable 200-240 mg/dL Borderline >240 mg/dL High Risk Triglyceride [Mass/Vol] 168 mg/dL <199 [facility] Comment on above: The drugs N-Acetylcy steine and Metamizole may falsely depress this assay.Serum Triglycerides Reference Interval Normal <150 mg/dL Borderline high 150 - 199 mg/dL High 200 - 499 mg/dL Very High > or = 500 mg/dL Serum or plasma cholesterol in HDL measurement (mass/volume)Ordered By: Demetrius Fenton on 03-13-2023 Cholesterol in HDL [Mass/Vol] 49 mg/dL >40 [facility] Comment on above: The drugs N-Acetylcy steine and Metamizole may falsely depress this assay. Reference Range HDL <40 mg/dL Low HDL Cholesterol HDL >or= 60 mg/dL High HDL Cholesterol Serum or plasma cholesterol in VLDL measurement (mass/volume)Ordered By: Demetrius Fenton on 03-13-2023 Cholesterol in VLDL [Mass/Vol] 34 mg/dL 5-40 [facility] Serum or plasma low density lipoprotein (LDL) cholesterol measurement (mass/volume)Ordered By: Demetrius Fenton on 03-13-2023 Cholesterol in LDL [Mass/Vol] 56 mg/dL 0-130 [facility] Basophil percentageOrdered B y: Demetrius Fenton on 02-09-2023 Bilirubin [Mass/Vol] 0.50 mg/dL 0.20-1.00 [facility] Comment on above: For patients on eltr ombopag therapy, use of Dimension Ruby TBIL is not recommended. Chloride [Moles/Vol] 104 mmol/L 98-107 [facility] Glucose [Mass/Vol] 128 mg/dL 74-106 [facility] Comment on above: Fasting Glucose resu lt greater than or equal to 126 mg/dL suggests DIABETES MELLITUS per A.D.A. criteria. Potassium [Moles/Vol] 4.6 mmol/L 3.5-5.1 [facility] Protein [Mass/Vol] 7.2 g/dL 6.4-8.2 [facility] Sodium [Moles/Vol] 136 mmol/L 136-145 [facility] WBC (Bld) [#/Vol] 7.9 10*3/uL 4.4-11.0 [facility] Blood erythrocytes count (nu mber/volume)Ordered By: Demetrius Fenton on 02-09-2023 RBC (Bld) [#/Vol] 4.93 10*6/uL 4.6-6.2 [facility] Blood hemoglobin measurement (mass/volume)Ordered By: Demetrius Fenton on 02-09-2023 Hemoglobin (Bld) [Mass/Vol] 14.8 g/dL 13.0-16.5 [facility] Blood platelet mean volumeOr dered By: Demetrius Fenton on 02-09-2023 Platelet mean volume (Bld) [Entitic vol] 11.3 fL 6.2-12.0 [facility] Determination of erythrocyte mean corpuscular volume (MCV)Ordered By: Demetrius Fenton on 02-09-2023 MCV (RBC) [Entitic vol] 88.0 fL 80-94 [facility] Hematocrit Auto (Bld) [Volum e fraction]Ordered By: Demetrius Fenton on 02-09-2023 Hematocrit (Bld) [Volume fraction] 43.4 % 40-54 [facility] - Chemistry and C hemistry - challengeOrdered By: Demetrius Fenton on 02-09-2023 ALP [Catalytic activity/Vol] 92 U/L 45-117 [facility] ALT [Catalytic activity/Vol] 31 U/L 16-61 [facility] CO2 [Moles/Vol] 26.0 mmol/L 21.0-32.0 [facility] Globulin (S) [Mass/Vol] 3.8 g/dL 2.2-4.2 [facility] Urea nitrogen/Creatinine [Mass ratio] 16.3 mg/mg 10-20 [facility] - Hematology and Cell countsOrdered By: Demetrius Fenton on 02-09-2023 Erythrocyte distribution width (RBC) [Entitic vol] 41.9 fL 35.1-43.9 [facility] Erythrocyte distribution width (RBC) [Ratio] 13.2 % 11.6-14.6 [facility] MCH (RBC) [Entitic mass] 30.0 pg 27.0-32.0 [facility] MCHC Auto (RBC) [Mass/Vol]Or dered By: Demetrius Fenton on 02-09-2023 MCHC (RBC) [Mass/Vol] 34.1 g/dL 32-36 [facility] No Panel InformationOrdered By: Demetrius Fenton on 02-09-2023 Estimated GFR (MDRD) Amer 100 mL/min >60 [facility] Comment on above: GFR Calc Estimated GFR (MDRD) Non-Af Amer 83 mL/min >60 [facility] Comment on above: Non- GFR Calc Platelets bldOrdered By: Miriam Fenton on 02-09-2023 Platelets (Bld) [#/Vol] 193 10*3/uL 150-450 [facility] Serum or plasma albumin roseanne urement (mass/volume)Ordered By: Demetrius Fenton on 02-09-2023 Albumin [Mass/Vol] 3.4 g/dL 3.2-5.0 [facility] Serum or plasma albumin/glob ulin mass ratioOrdered By: Demetrius Fenton on 02-09-2023 Albumin/Globulin [Mass ratio] 0.9 {ratio} 0.9-2.4 [facility] Serum or plasma calcium roseanne urement (mass/volume)Ordered By: Demetrius Fenton on 02-09-2023 Calcium [Mass/Vol] 9.2 mg/dL 8.5-10.1 [facility] Serum or plasma creatinine m easurement (mass/volume)Ordered By: Demetrius Fenton on 02-09-2023 Creatinine [Mass/Vol] 0.98 mg/dL 0.70-1.30 [facility] Comment on above: The validity of the calculated GFR & GFRAA in patients over 70 years has not been determined. Clinical correlation is essential. Serum or plasma urea nitroge n measurement (mass/volume)Ordered By: Demetrius Fenton on 02-09-2023 Urea nitrogen [Mass/Vol] 16 mg/dL 7-18 [facility] Thin prep Papanicolaou smear with manual screeningOrdered By: Demetrius Fenton on 02-09-2023 Thin prep Papanicolaou smear with manual screening 20 U/L 15-37 [facility] Thin prep Papanicolaou smear with manual screening 6 5-15 [facility] Basophil percentageOrdered B y: Demetrius Fenton on 01-09-2023 Chloride [Moles/Vol] 104 mmol/L 98-107 [facility] Glucose [Mass/Vol] 169 mg/dL 74-106 [facility] Comment on above: Fasting Glucose resu lt greater than or equal to 126 mg/dL suggests DIABETES MELLITUS per A.D.A. criteria. Potassium [Moles/Vol] 4.1 mmol/L 3.5-5.1 [facility] Sodium [Moles/Vol] 139 mmol/L 136-145 [facility] WBC (Bld) [#/Vol] 6.8 10*3/uL 4.4-11.0 [facility] Blood erythrocytes count (nu mber/volume)Ordered By: Demetrius Fenton on 01-09-2023 RBC (Bld) [#/Vol] 4.61 10*6/uL 4.6-6.2 [facility] Blood hemoglobin measurement (mass/volume)Ordered By: Demetrius Fenton on 01-09-2023 Hemoglobin (Bld) [Mass/Vol] 13.6 g/dL 13.0-16.5 [facility] Blood platelet mean volumeOr dered By: Demetrius Fenton on 01-09-2023 Platelet mean volume (Bld) [Entitic vol] 11.8 fL 6.2-12.0 [facility] Determination of erythrocyte mean corpuscular volume (MCV)Ordered By: Demetrius Fenton on 01-09-2023 MCV (RBC) [Entitic vol] 90.7 fL 80-94 [facility] Hematocrit Auto (Bld) [Volum e fraction]Ordered By: Demetrius Fenton on 01-09-2023 Hematocrit (Bld) [Volume fraction] 41.8 % 40-54 [facility] - Chemistry and C hemistry - challengeOrdered By: Demetrius Fenton on 01-09-2023 CO2 [Moles/Vol] 29.0 mmol/L 21.0-32.0 [facility] Urea nitrogen/Creatinine [Mass ratio] 19.3 mg/mg 10-20 [facility] - Hematology and Cell countsOrdered By: Demetrius Fenton on 01-09-2023 Erythrocyte distribution width (RBC) [Entitic vol] 42.6 fL 35.1-43.9 [facility] Erythrocyte distribution width (RBC) [Ratio] 13.2 % 11.6-14.6 [facility] MCH (RBC) [Entitic mass] 29.5 pg 27.0-32.0 [facility] MCHC Auto (RBC) [Mass/Vol]Or dered By: Demetrius Fenton on 01-09-2023 MCHC (RBC) [Mass/Vol] 32.5 g/dL 32-36 [facility] No Panel InformationOrdered By: Demetrius Fenton on 01-09-2023 Estimated GFR (MDRD) Amer 89 mL/min >60 [facility] Comment on above: GFR Calc Estimated GFR (MDRD) Non-Af Amer 73 mL/min >60 [facility] Comment on above: Non- GFR Calc Prostate Specific Antigen Screen 0.59 ng/mL 0.00-4.00 [facility] Comment on above: This test was perfor med using the TPSA assay method for the[employer] chemistry system. Values obtained with differentassay methods cannot be used interchangably.When changing PSA assays in the course of monitoring apatient, additional sequential testing should be carriedout to confirm baseline values. Platelets bldOrdered By: Miriam Fenton on 01-09-2023 Platelets (Bld) [#/Vol] 166 10*3/uL 150-450 [facility] Serum or plasma calcium roseanne urement (mass/volume)Ordered By: Demetrius Fenton on 01-09-2023 Calcium [Mass/Vol] 8.8 mg/dL 8.5-10.1 [facility] Serum or plasma creatinine m easurement (mass/volume)Ordered By: Demetrius Fenton on 01-09-2023 Creatinine [Mass/Vol] 1.09 mg/dL 0.70-1.30 [facility] Comment on above: The validity of the calculated GFR & GFRAA in patients over 70 years has not been determined. Clinical correlation is essential. Serum or plasma urea nitroge n measurement (mass/volume)Ordered By: Demetrius Fenton on 01-09-2023 Urea nitrogen [Mass/Vol] 21 mg/dL 7-18 [facility] Thin prep Papanicolaou smear with manual screeningOrdered By: Demetrius Fenton on 01-09-2023 Thin prep Papanicolaou smear with manual screening 6 5-15 [facility] No Panel InformationOrdered By: Gunnar Cummings on 01-02-2023 Prostate Specific Antigen Screen 0.62 ng/mL 0.00-4.00 [facility] Comment on above: This test was perfor med using the TPSA assay method for the[employer] chemistry system. Values obtained with differentassay methods cannot be used interchangably.When changing PSA assays in the course of monitoring apatient, additional sequential testing should be carriedout to confirm baseline values. Valproic Acid (Depakene) Level 35 ug/mL 50-100 [facility] Bacteria identified Cx Nom ( Wound)Ordered By: Gunnar Cummings on 12-14-2022 Wound Culture Pseudomonas aeruginosa [facility] Wound Culture Proteus mirabilis [facility] Wound Culture Meth. resistant Stap h. aureus [facility] Gram stain for investigation of transfusion reactionOrdered By: Gunnar Cummings on 12-14-2022 Microscopic observation Gram stain Nom (Unsp spec) [facility] Basophil percentageOrdered B y: Demetrius Fenton on 11-28-2022 Chloride [Moles/Vol] 104 mmol/L 98-107 [facility] Glucose [Mass/Vol] 162 mg/dL 74-106 [facility] Comment on above: Fasting Glucose resu lt greater than or equal to 126 mg/dL suggests DIABETES MELLITUS per A.D.A. criteria. Potassium [Moles/Vol] 4.3 mmol/L 3.5-5.1 [facility] Sodium [Moles/Vol] 136 mmol/L 136-145 [facility] WBC (Bld) [#/Vol] 7.3 10*3/uL 4.4-11.0 [facility] Blood erythrocytes count (nu mber/volume)Ordered By: Demetrius Fenton on 11-28-2022 RBC (Bld) [#/Vol] 4.84 10*6/uL 4.6-6.2 [facility] Blood hemoglobin measurement (mass/volume)Ordered By: Demetrius Fenton on 11-28-2022 Hemoglobin (Bld) [Mass/Vol] 14.2 g/dL 13.0-16.5 [facility] Blood platelet mean volumeOr dered By: Demetrius Fenton on 11-28-2022 Platelet mean volume (Bld) [Entitic vol] 11.6 fL 6.2-12.0 [facility] Determination of erythrocyte mean corpuscular volume (MCV)Ordered By: Demetrius Fenton on 11-28-2022 MCV (RBC) [Entitic vol] 89.7 fL 80-94 [facility] Hematocrit Auto (Bld) [Volum e fraction]Ordered By: Demetrius Fenton on 11-28-2022 Hematocrit (Bld) [Volume fraction] 43.4 % 40-54 [facility] - Chemistry and C hemistry - challengeOrdered By: Demetrius Fenton on 11-28-2022 CO2 [Moles/Vol] 25.0 mmol/L 21.0-32.0 [facility] Urea nitrogen/Creatinine [Mass ratio] 20.2 mg/mg 10-20 [facility] - Hematology and Cell countsOrdered By: Demetrius Fetnon on 11-28-2022 Erythrocyte distribution width (RBC) [Entitic vol] 43.9 fL 35.1-43.9 [facility] Erythrocyte distribution width (RBC) [Ratio] 13.4 % 11.6-14.6 [facility] MCH (RBC) [Entitic mass] 29.3 pg 27.0-32.0 [facility] MCHC Auto (RBC) [Mass/Vol]Or dered By: Demetrius Fenton on 11-28-2022 MCHC (RBC) [Mass/Vol] 32.7 g/dL 32-36 [facility] No Panel InformationOrdered By: Demetrius Fenton on 11-28-2022 Estimated GFR (MDRD) Amer 77 mL/min >60 [facility] Comment on above: GFR Calc Estimated GFR (MDRD) Non-Af Amer 63 mL/min >60 [facility] Comment on above: Non- GFR Calc Platelets bldOrdered By: Miriam Fenotn on 11-28-2022 Platelets (Bld) [#/Vol] 172 10*3/uL 150-450 [facility] Serum or plasma calcium roseanne urement (mass/volume)Ordered By: Demetrius Fenton on 11-28-2022 Calcium [Mass/Vol] 9.0 mg/dL 8.5-10.1 [facility] Serum or plasma creatinine m easurement (mass/volume)Ordered By: Demetrius Fenton on 11-28-2022 Creatinine [Mass/Vol] 1.24 mg/dL 0.70-1.30 [facility] Comment on above: The validity of the calculated GFR & GFRAA in patients over 70 years has not been determined. Clinical correlation is essential. Serum or plasma urea nitroge n measurement (mass/volume)Ordered By: Demetrius Fenton on 11-28-2022 Urea nitrogen [Mass/Vol] 25 mg/dL - [facility] Thin prep Papanicolaou smear with manual screeningOrdered By: Demetrius Fenton on 11-28-2022 Thin prep Papanicolaou smear with manual screening 7 - [facility] No Panel InformationOrdered By: Demetrius Fenton on 11-21-2022 Valproic Acid (Depakene) Level 35 ug/mL 50-100 [facility] Basophil percentageOrdered B y: Demetrius Fenton on 10-24-2022 Chloride [Moles/Vol] 104 mmol/L 98-107 [facility] Glucose [Mass/Vol] 101 mg/dL 74-106 [facility] Comment on above: Fasting Glucose resu lt from 100 to 125 mg/dL suggests IMPAIRED HOMEOSTASIS per A.D.A. criteria. Potassium [Moles/Vol] 4.6 mmol/L 3.5-5.1 [facility] Sodium [Moles/Vol] 137 mmol/L 136-145 [facility] Laboratory - Chemistry and C hemistry - challengeOrdered By: Demetrius Fenton on 10-24-2022 CO2 [Moles/Vol] 29.0 mmol/L 21.0-32.0 [facility] Urea nitrogen/Creatinine [Mass ratio] 17.4 mg/mg 10- [facility] No Panel InformationOrdered By: Demetrius Fenton on 10-24-2022 Estimated GFR (MDRD) Amer 79 mL/min >60 [facility] Comment on above: GFR Calc Estimated GFR (MDRD) Non-Af Amer 65 mL/min >60 [facility] Comment on above: Non- GFR Calc Serum or plasma calcium roseanne urement (mass/volume)Ordered By: Demetrius Fenton on 10-24-2022 Calcium [Mass/Vol] 9.0 mg/dL 8.5-10.1 [facility] Serum or plasma creatinine m easurement (mass/volume)Ordered By: Demetrius Fenton on 10-24-2022 Creatinine [Mass/Vol] 1.21 mg/dL 0.70-1.30 [facility] Comment on above: The validity of the calculated GFR & GFRAA in patients over 70 years has not been determined. Clinical correlation is essential. Serum or plasma urea nitroge n measurement (mass/volume)Ordered By: Demetrius Fenton on 10-24-2022 Urea nitrogen [Mass/Vol] 21 mg/dL 7-18 [facility] Thin prep Papanicolaou smear with manual screeningOrdered By: Demetrius Fenton on 10-24-2022 Thin prep Papanicolaou smear with manual screening 4 5-15 [facility] Basophil percentageOrdered B y: Demetrius Fenton on 09-12-2022 Cholesterol [Mass/Vol] 107 mg/dL <200 [facility] Comment on above: <200 mg/dL Desirable 200-240 mg/dL Borderline >240 mg/dL High Risk Triglyceride [Mass/Vol] 243 mg/dL <199 [facility] Comment on above: The drugs N-Acetylcy steine and Metamizole may falsely depress this assay.Serum Triglycerides Reference Interval Normal <150 mg/dL Borderline high 150 - 199 mg/dL High 200 - 499 mg/dL Very High > or = 500 mg/dL WBC (Bld) [#/Vol] 9.1 10*3/uL 4.4-11.0 [facility] Blood erythrocytes count (nu mber/volume)Ordered By: Demetrius Fenton on 09-12-2022 RBC (Bld) [#/Vol] 4.59 10*6/uL 4.6-6.2 [facility] Blood hemoglobin measurement (mass/volume)Ordered By: Demetrius Fenton on 09-12-2022 Hemoglobin (Bld) [Mass/Vol] 13.7 g/dL 13.0-16.5 [facility] Blood platelet mean volumeOr dered By: Demetrius Fenton on 09-12-2022 Platelet mean volume (Bld) [Entitic vol] 10.6 fL 6.2-12.0 [facility] Determination of erythrocyte mean corpuscular volume (MCV)Ordered By: Demetrius Fenton on 09-12-2022 MCV (RBC) [Entitic vol] 88.9 fL 80-94 [facility] Hematocrit Auto (Bld) [Volum e fraction]Ordered By: Demetrius Fenton on 09-12-2022 Hematocrit (Bld) [Volume fraction] 40.8 % 40-54 [facility] - Hematology and Cell countsOrdered By: Demetrius Fenton on 09-12-2022 Erythrocyte distribution width (RBC) [Entitic vol] 43.8 fL 35.1-43.9 [facility] Erythrocyte distribution width (RBC) [Ratio] 14.0 % 11.6-14.6 [facility] MCH (RBC) [Entitic mass] 29.8 pg 27.0-32.0 [facility] MCHC Auto (RBC) [Mass/Vol]Or dered By: Demetrius Fenton on 09-12-2022 MCHC (RBC) [Mass/Vol] 33.6 g/dL 32-36 [facility] No Panel InformationOrdered By: Demetrius Fenton on 09-12-2022 Valproic Acid (Depakene) Level 29 ug/mL 50-100 [facility] Platelets bldOrdered By: Miriam Fenton on 09-12-2022 Platelets (Bld) [#/Vol] 188 10*3/uL 150-450 [facility] Serum or plasma cholesterol in HDL measurement (mass/volume)Ordered By: Demetrius Fenton on 09-12-2022 Cholesterol in HDL [Mass/Vol] 41 mg/dL >40 [facility] Comment on above: The drugs N-Acetylcy steine and Metamizole may falsely depress this assay. Reference Range HDL <40 mg/dL Low HDL Cholesterol HDL >or= 60 mg/dL High HDL Cholesterol Serum or plasma cholesterol in VLDL measurement (mass/volume)Ordered By: Demetrius Fenton on 09-12-2022 Cholesterol in VLDL [Mass/Vol] 49 mg/dL 5-40 [facility] Serum or plasma low density lipoprotein (LDL) cholesterol measurement (mass/volume)Ordered By: Demetrius Fenton on 09-12-2022 Cholesterol in LDL [Mass/Vol] 17 mg/dL 0-130 [facility] Bacteria identified Cx Nom ( Wound)Ordered By: Demetrius Fenton on 09-10-2022 Wound Culture Pseudomonas aeruginosa [facility] Gram stain for investigation of transfusion reactionOrdered By: Demetrius Fenton on 09-08-2022 Microscopic observation Gram stain Nom (Unsp spec) [facility] Bacteria identified Cx Nom ( Wound)Ordered By: Demetrius Fenton on 09-07-2022 Wound Culture Pseudomonas aeruginosa [facility] Gram stain for investigation of transfusion reactionOrdered By: Demetrius Fenton on 09-07-2022 Microscopic observation Gram stain Nom (Unsp spec) [facility] No Panel InformationOrdered By: Demetrius Fenton on 08-22-2022 Valproic Acid (Depakene) Level 40 ug/mL 50-100 [facility] Basophil percentageOrdered B y: Demetrius Fenton on 08-01-2022 Amylase [Catalytic activity/Vol] 50 U/L 25-115 [facility] Bilirubin [Mass/Vol] 0.50 mg/dL 0.20-1.00 [facility] Comment on above: For patients on eltr ombopag therapy, use of Dimension Ruby TBIL is not recommended. Protein [Mass/Vol] 6.4 g/dL 6.4-8.2 [facility] Direct bilirubinOrdered By: Demetrius Fenton on 08-01-2022 Bilirubin.direct [Mass/Vol] 0.14 mg/dL 0.00-0.30 [facility] - Chemistry and C hemistry - challengeOrdered By: Demetrius Fenton on 08-01-2022 ALP [Catalytic activity/Vol] 62 U/L 45-117 [facility] ALT [Catalytic activity/Vol] 26 U/L 16-61 [facility] Globulin (S) [Mass/Vol] 3.3 g/dL 2.2-4.2 [facility] Lipase [Catalytic activity/Vol] 45 U/L 13-75 [facility] Comment on above: Please note:LIPASE r evised reference range effective 22. New Lipase methodology. Expected to produce lower values than the previous assay method. NEW Reference Range: 13 - 75 U/L Serum or plasma albumin roseanne urement (mass/volume)Ordered By: Demetrius Fenton on 08-01-2022 Albumin [Mass/Vol] 3.1 g/dL 3.2-5.0 [facility] Thin prep Papanicolaou smear with manual screeningOrdered By: Demetrius Fenton on 08-01-2022 Thin prep Papanicolaou smear with manual screening 18 U/L 15-37 [facility] Basophil percentageOrdered B y: Demetrius Fenton on 07-28-2022 Chloride [Moles/Vol] 107 mmol/L 98-107 [facility] Glucose [Mass/Vol] 95 mg/dL 74-106 [facility] Potassium [Moles/Vol] 4.4 mmol/L 3.5-5.1 [facility] Comment on above: Slight Hemolysis, Re sult may be falsely increased. Sodium [Moles/Vol] 136 mmol/L 136-145 [facility] WBC (Bld) [#/Vol] 7.2 10*3/uL 4.4-11.0 [facility] Blood erythrocytes count (nu mber/volume)Ordered By: Demetrius Fenton on 07-28-2022 RBC (Bld) [#/Vol] 3.82 10*6/uL 4.6-6.2 [facility] Blood hemoglobin measurement (mass/volume)Ordered By: Demetrius Fenton on 07-28-2022 Hemoglobin (Bld) [Mass/Vol] 11.6 g/dL 13.0-16.5 [facility] Blood platelet mean volumeOr dered By: Demetrius Fenton on 07-28-2022 Platelet mean volume (Bld) [Entitic vol] 11.1 fL 6.2-12.0 [facility] Determination of erythrocyte mean corpuscular volume (MCV)Ordered By: Demetrius Fenton on 07-28-2022 MCV (RBC) [Entitic vol] 93.5 fL 80-94 [facility] Hematocrit Auto (Bld) [Volum e fraction]Ordered By: Demetrius Fenton on 07-28-2022 Hematocrit (Bld) [Volume fraction] 35.7 % 40-54 [facility] - Chemistry and C hemistry - challengeOrdered By: Demetrius Fenton on 07-28-2022 CO2 [Moles/Vol] 25.0 mmol/L 21.0-32.0 [facility] Urea nitrogen/Creatinine [Mass ratio] 13.1 mg/mg 01-27 [facility] - Hematology and Cell countsOrdered By: Demetrius Fenton on 07-28-2022 Erythrocyte distribution width (RBC) [Entitic vol] 47.2 fL 35.1-43.9 [facility] Erythrocyte distribution width (RBC) [Ratio] 14.1 % 11.6-14.6 [facility] MCH (RBC) [Entitic mass] 30.4 pg 27.0-32.0 [facility] MCHC Auto (RBC) [Mass/Vol]Or dered By: Demetrius Fenton on 07-28-2022 MCHC (RBC) [Mass/Vol] 32.5 g/dL 32-36 [facility] No Panel InformationOrdered By: Demetrius Fenton on 07-28-2022 Estimated GFR (MDRD) Amer 99 mL/min >60 [facility] Comment on above: GFR Calc Estimated GFR (MDRD) Non-Af Amer 82 mL/min >60 [facility] Comment on above: Non- GFR Calc Platelets bldOrdered By: Miriam Fenton on 07-28-2022 Platelets (Bld) [#/Vol] 204 10*3/uL 150-450 [facility] Serum or plasma calcium roseanne urement (mass/volume)Ordered By: Demetrius Fenton on 07-28-2022 Calcium [Mass/Vol] 8.9 mg/dL 8.5-10.1 [facility] Serum or plasma creatinine m easurement (mass/volume)Ordered By: Demetrius Fenton on 07-28-2022 Creatinine [Mass/Vol] 0.99 mg/dL 0.70-1.30 [facility] Comment on above: The validity of the calculated GFR & GFRAA in patients over 70 years has not been determined. Clinical correlation is essential. Serum or plasma urea nitroge n measurement (mass/volume)Ordered By: Demetrius Fenton on 07-28-2022 Urea nitrogen [Mass/Vol] 13 mg/dL 7-18 [facility] Thin prep Papanicolaou smear with manual screeningOrdered By: Demetrius Fenton on 07-28-2022 Thin prep Papanicolaou smear with manual screening 4 5-15 [facility] Culture, urineOrdered By: Travis Finch on 07-21-2022 Bacteria identified Cx Nom (U) Escherichia coli [facility] Bilirubin Test strip Ql (U)O rdered By: Demetrius Fenton on 07-18-2022 Bilirubin Ql (U) Negative Negative [facility] Culture, urineOrdered By: Travis Finch on 07-18-2022 Bacteria identified Cx Nom (U) Escherichia coli [facility] Ketones Test strip Ql (U)Ord ered By: Demetrius Fenton on 07-18-2022 Ketones Ql (U) 15 mg/dl Negative [facility] Nitrite Test strip Ql (U)Ord ered By: Demetrius Fenton on 07-18-2022 Nitrite Ql (U) Positive Negative [facility] No Panel InformationOrdered By: Demetrius Fenton on 07-18-2022 Valproic Acid (Depakene) Level 42 ug/mL 50-100 [facility] Protein Test strip Ql (U)Ord ered By: Demetrius Fenton on 07-18-2022 Protein Ql (U) 100 mg/dl Negative [facility] Urine blood detectionOrdered By: Demetrius Fenton on 07-18-2022 RBC Ql (U) 250 /ul Negative [facility] Urine clarityOrdered By: Miriam Fenton on 07-18-2022 Clarity (U) Turbid Clear [facility] Urine color determinationOrd ered By: Demetrius Fenton on 07-18-2022 Color (U) Brown Yellow [facility] Urine glucose detectionOrder ed By: Demetrius Fenton on 07-18-2022 Glucose Ql (U) Normal mg/dl Normal [facility] Urine leukocyte esterase det ection by dipstickOrdered By: Demetrius Fenton on 07-18-2022 Leukocyte esterase Test strip Ql (U) 500 /ul Negative [facility] Urine pHOrdered By: Demetrius astorga on 07-18-2022 pH (U) 5.0 [pH] 5.0 - 8.0 [facility] Urine specific gravity measu rementOrdered By: Demetrius Fenton on 07-18-2022 Specific gravity (U) [Rel density] 1.020 1.002-1.030 [facility] Urobilinogen Auto test strip Ql (U)Ordered By: Demetrius Fenton on 07-18-2022 Urobilinogen Ql (U) 4 mg/dl Normal [facility] Basophil percentageOrdered B y: Gunnar Cummings on 06-30-2022 Amylase [Catalytic activity/Vol] 62 U/L 25-115 [facility] Bilirubin [Mass/Vol] 0.60 mg/dL 0.20-1.00 [facility] Comment on above: For patients on eltr ombopag therapy, use of Dimension Ruby TBIL is not recommended. Chloride [Moles/Vol] 103 mmol/L 98-107 [facility] Glucose [Mass/Vol] 120 mg/dL 74-106 [facility] Comment on above: Fasting Glucose resu lt from 100 to 125 mg/dL suggests IMPAIRED HOMEOSTASIS per A.D.A. criteria. Potassium [Moles/Vol] 4.5 mmol/L 3.5-5.1 [facility] Protein [Mass/Vol] 6.2 g/dL 6.4-8.2 [facility] Sodium [Moles/Vol] 139 mmol/L 136-145 [facility] WBC (Bld) [#/Vol] 6.2 10*3/uL 4.4-11.0 [facility] Blood erythrocytes count (nu mber/volume)Ordered By: Gunnar Cummings on 06-30-2022 RBC (Bld) [#/Vol] 3.78 10*6/uL 4.6-6.2 [facility] Blood hemoglobin measurement (mass/volume)Ordered By: Gunnar Cummings on 06-30-2022 Hemoglobin (Bld) [Mass/Vol] 11.7 g/dL 13.0-16.5 [facility] Blood platelet mean volumeOr dered By: Gunnar Cummings on 06-30-2022 Platelet mean volume (Bld) [Entitic vol] 10.6 fL 6.2-12.0 [facility] Determination of erythrocyte mean corpuscular volume (MCV)Ordered By: Gunnar Cummings on 06-30-2022 MCV (RBC) [Entitic vol] 94.2 fL 80-94 [facility] Hematocrit Auto (Bld) [Volum e fraction]Ordered By: Gunnar Cummings on 06-30-2022 Hematocrit (Bld) [Volume fraction] 35.6 % 40-54 [facility] - Chemistry and C hemistry - challengeOrdered By: Gunnar Cummings on 06-30-2022 ALP [Catalytic activity/Vol] 77 U/L 45-117 [facility] ALT [Catalytic activity/Vol] 24 U/L 16-61 [facility] CO2 [Moles/Vol] 28.0 mmol/L 21.0-32.0 [facility] Globulin (S) [Mass/Vol] 3.5 g/dL 2.2-4.2 [facility] Lipase [Catalytic activity/Vol] 777 U/L 73-393 [facility] Urea nitrogen/Creatinine [Mass ratio] 15.4 mg/mg 10-20 [facility] - Hematology and Cell countsOrdered By: Gunnar Cummings on 06-30-2022 Erythrocyte distribution width (RBC) [Entitic vol] 46.9 fL 35.1-43.9 [facility] Erythrocyte distribution width (RBC) [Ratio] 14.0 % 11.6-14.6 [facility] MCH (RBC) [Entitic mass] 31.0 pg 27.0-32.0 [facility] MCHC Auto (RBC) [Mass/Vol]Or dered By: Gunnar Cummings on 06-30-2022 MCHC (RBC) [Mass/Vol] 32.9 g/dL 32-36 [facility] No Panel InformationOrdered By: Gunnar Cummings on 06-30-2022 Estimated GFR (MDRD) Amer 110 mL/min >60 [facility] Comment on above: GFR Calc Estimated GFR (MDRD) Non-Af Amer 91 mL/min >60 [facility] Comment on above: Non- GFR Calc Platelets bldOrdered By: Ar Cummings on 06-30-2022 Platelets (Bld) [#/Vol] 277 10*3/uL 150-450 [facility] Serum or plasma albumin roseanne urement (mass/volume)Ordered By: Gunnar Cummings on 06-30-2022 Albumin [Mass/Vol] 2.7 g/dL 3.2-5.0 [facility] Serum or plasma albumin/glob ulin mass ratioOrdered By: Gunnar Cummings on 06-30-2022 Albumin/Globulin [Mass ratio] 0.8 {ratio} 0.9-2.4 [facility] Serum or plasma calcium roseanne urement (mass/volume)Ordered By: Gunnar Cummings on 06-30-2022 Calcium [Mass/Vol] 8.9 mg/dL 8.5-10.1 [facility] Serum or plasma creatinine m easurement (mass/volume)Ordered By: Gunnar Cummings on 06-30-2022 Creatinine [Mass/Vol] 0.91 mg/dL 0.70-1.30 [facility] Comment on above: The validity of the calculated GFR & GFRAA in patients over 70 years has not been determined. Clinical correlation is essential. Serum or plasma urea nitroge n measurement (mass/volume)Ordered By: Gunnar Cummings on 06-30-2022 Urea nitrogen [Mass/Vol] 14 mg/dL 7-18 [facility] Thin prep Papanicolaou smear with manual screeningOrdered By: Gunnar Cummings on 06-30-2022 Thin prep Papanicolaou smear with manual screening 15 U/L 15-37 [facility] Thin prep Papanicolaou smear with manual screening 8 5-15 [facility] Cobalamin (Vitamin B12) [Mas s/Vol]on 06-23-2022 Interpretation and review of laboratory results Normal [facility] Comprehensive metabolic 1998 panelon 06-23-2022 Albumin [Mass/Vol] [...] 17 mg/dL 9 - 20 mg/dL [facility] Ferritin [Mass/Vol]on 2022 Interpretation and review of laboratory results Normal [facility] Iron and Iron binding capaci ty panelon 06-23-2022 Interpretation and review of laboratory results Normal [facility] Iron [Mass/Vol] 83 ug/dL 49 - 181 ug/dL [facility] Iron binding capacity [Mass/Vol] 285 ug/dL 261 - 497 ug/dL [facility] Iron saturation [Mass fraction] 29 % 15 - 50 % [facility] Laboratory - Chemistry and C hemistry - [...] and review of laboratory results Normal [facility] Interpretation and review of laboratory results Abnormal [facility] CBC W Auto Differential pane l [...] [Moles/Vol] 3.8 mmol/L 3.5 - 5.1 mmol/L [facility] [employer] Protein [Mass/Vol] 6.1 g/dL Low 6.3 - [...] and review of laboratory results Abnormal [facility] Laboratory - Chemistry and C hemistry - challengeon 06-22-2022 Lipase [Catalytic activity/Vol] 1218 U/L High 23 - 300 U/L [facility] Magnesium [Mass/Vol] 2.1 mg/dL 1.6 - 2 .3 mg/dL [facility] Magnesium [Mass/Vol]on 06-22 Interpretation and review of laboratory results Normal [facility] [employer] Manual differential performe d Ql (Bld)on 06-22-2022 [...] [facility] Lymphocytes (Bld) [#/Vol] 2.3 10*3/uL 1.0 - 4.3 10*3/uL [facility] Lymphocytes Manual 18 [facility] Lymphocytes/100 WBC (Bld) 18 % Low 20 - 40 % [facility] Metamyelocytes (Bld) [#/Vol] 0.1 10*3/uL High NINF - 0.0 10*3/uL [facility] Metamyelocytes Manual 1 [facility] Metamyelocytes/100 WBC (Bld) 1 % High NINF - 0 % [facility] Monocytes (Bld) [#/Vol] 0.4 10*3/uL 0.0 - 0.8 10*3/uL [facility] Monocytes Manual 3 [facility] alth Monocytes/100 WBC (Bld) 3 % 2 - 10 % [facility] Myelocytes (Bld) [#/Vol] 0.7 10*3/uL High NINF - 0.0 10*3/uL [facility] Myelocytes Manual 5 [facility] ealth Myelocytes/100 WBC (Bld) 5 % High NINF - 0 % [facility] Neutrophils (Bld) [#/Vol] 8.7 10*3/uL High [...] and review of laboratory results Abnormal [facility] Interpretation and review of laboratory results Abnormal [facility] Bacteria identified Cx Nom ( Bld)on 06-21-2022 Interpretation and review of laboratory results Normal [facility] CBC W Auto Differential pane l [...] 19 mg/dL 9 - 20 mg/dL [facility] Laboratory - Chemistry and C hemistry - [...] 10*3/uL [facility] Eosinophils Manual 2 High 0 - 1 [facility] Eosinophils/100 WBC (Bld) 2 % 1 - 6 % [facility] Lymphocytes (Bld) [#/Vol] 3.2 10*3/uL 1.0 - 4.3 10*3/uL [facility] Lymphocytes Manual 20 [facility] Lymphocytes/100 WBC (Bld) 20 % 20 - 40 % [facility] Metamyelocytes (Bld) [#/Vol] 0.5 10*3/uL High NINF - 0.0 10*3/uL [facility] Metamyelocytes Manual 3 [facility] Metamyelocytes/100 WBC (Bld) 3 % High NINF - 0 % [facility] Monocytes (Bld) [#/Vol] 0.5 10*3/uL 0.0 - 0.8 10*3/uL [facility] Monocytes Manual 3 [facility] alth Monocytes/100 WBC (Bld) 3 % 2 - 10 % [facility] Myelocytes (Bld) [#/Vol] 0.3 10*3/uL High NINF - 0.0 10*3/uL [facility] Myelocytes Manual 2 [facility] ealth Myelocytes/100 WBC (Bld) 2 % High NINF - 0 % [facility] Neutrophils (Bld) [#/Vol] 11.3 10*3/uL High 1.8 - 7.0 10*3/uL [facility] Neutrophils Manual 70 [facility] [...] and review of laboratory results Abnormal [facility] Interpretation and review of laboratory results Abnormal [facility] CBC W Auto Differential pane l (Bld)on 06-20-2022 Basophils (Bld) [#/Vol] 0.2 10*3/uL 0.0 - 0.2 10*3/uL [facility] Basophils/100 WBC (Bld) 0.9 % 0.0 - 2.0 % [facility] Eosinophils (Bld) [#/Vol] 0.6 10*3/uL High 0.0 - 0.5 10*3/uL [facility] Eosinophils/100 WBC (Bld) 3.1 % 1.0 - 6.0 % [facility] Erythrocyte distribution width (RBC) [Ratio] 13.7 % 11.5 - 14.5 % [facility] Hematocrit (Bld) [Volume fraction] 38.9 % Low 40.0 - 52.0 % [facility] Hemoglobin (Bld) [Mass/Vol] 13.2 g/dL 13.0 - 18.0 g/dL [facility] Interpretation and review of laboratory results Abnormal [facility] Lymphocytes (Bld) [#/Vol] 3.2 10*3/uL 1.0 - 4.3 10*3/uL [facility] Lymphocytes/100 WBC (Bld) 17.9 % Low 20.0 - 40.0 % [facility] MCH (RBC) [Entitic mass] 30.5 pg 26.0 - 34.0 pg [facility] MCHC (RBC) [Mass/Vol] 33.9 % 32.0 - 36.0 % [facility] MCV (RBC) [Entitic vol] 90.0 fL 80.0 - 98.0 fL [facility] Monocytes (Bld) [#/Vol] 1.1 10*3/uL High 0.0 - 0.8 10*3/uL [facility] Monocytes/100 WBC (Bld) 6.1 % 2.0 - 10.0 % [facility] Neutrophils (Bld) [#/Vol] 12.8 10*3/uL High 1.8 - 7.0 10*3/uL [facility] Neutrophils/100 WBC (Bld) 72.0 % 40.0 - 80.0 % [facility] Nucleated RBC/100 WBC (Bld) [Ratio] 0.0 % [facility] Platelet mean volume (Bld) [Entitic vol] 7.9 fL 7.4 - 12.4 fL [facility] Platelets (Bld) [#/Vol] 389 10*3/uL 140 - 440 10*3/uL [facility] RBC (Bld) [#/Vol] 4.33 10*6/uL Low 4.40 - 5.9 0 10*6/uL [facility] WBC (Bld) [#/Vol] 17.8 10*3/uL High 3.6 - 10.7 10*3/uL [facility] Comprehensive metabolic 1998 panelon 06-20-2022 Albumin [Mass/Vol] [...] and review of laboratory results Abnormal [facility] CBC W Auto Differential pane l (Bld)on [...] [facility] Monocytes Manual 3 [facility] alth Monocytes/100 WBC (Bld) 3 % 2 - 10 % [facility] Myelocytes (Bld) [#/Vol] 0.6 10*3/uL High NINF - 0.0 10*3/uL [facility] Myelocytes Manual 3 [facility] H ealth Myelocytes/100 WBC (Bld) 3 [...] and review of laboratory results Abnormal [facility] Interpretation and review of laboratory results Abnormal [facility] XR Chest Single viewon 06-19 [facility] Radiology Study observation (narrative) [facility] CBC W Auto Differential pane l [...] PINF [facility] Glucose [Mass/Vol] 195 mg/dL High 70 - 100 mg/dL [facility] Potassium [Moles/Vol] 3.8 mmol/L 3.5 - 5.1 mmol/L [facility] Protein [Mass/Vol] 6.9 g/dL 6.3 - [...] [facility] Band form neutrophils/100 WBC (Bld) 2 % High NINF - 0 % [facility] Bands Manual 2 [facility] Cells Counted Total (Bld) [#] 100 {cells} [facility] Eosinophils (Bld) [#/Vol] 0.2 10*3/uL 0.0 - 0.5 10*3/uL [facility] Eosinophils Manual 1 0 - 1 [facility] Eosinophils/100 WBC (Bld) 1 % 1 - 6 % [facility] Leukocyte morphology finding Nom (Bld) Normal [facility] Lymphocytes (Bld) [#/Vol] 1.7 10*3/uL 1.0 - 4.3 10*3/uL [facility] Lymphocytes Manual 8 [facility] Lymphocytes/100 WBC (Bld) 8 % Low 20 - 40 % [facility] Metamyelocytes (Bld) [#/Vol] 0.4 10*3/uL High NINF - 0.0 10*3/uL [facility] Metamyelocytes Manual 2 [facility] Metamyelocytes/100 WBC (Bld) 2 % High NINF - 0 % [facility] Monocytes (Bld) [#/Vol] 0.8 10*3/uL 0.0 - 0.8 10*3/uL [facility] Monocytes Manual 4 [facility] Monocytes/100 WBC (Bld) 4 % 2 - 10 % S [facility] Myelocytes (Bld) [#/Vol] 0.4 10*3/uL High NINF - 0.0 10*3/uL [facility] Myelocytes Manual 2 [facility] Myelocytes/100 WBC (Bld) 2 % High NINF - 0 % [facility] Neutrophils (Bld) [#/Vol] 17.2 10*3/uL High 1.8 - 7.0 10*3/uL [facility] Neutrophils Manual 81 [facility] Nucleated RBC/100 WBC (Bld) [Ratio] 1 % [facility] Platelet morphology finding Nom (Bld) Normal [facility] Polychromasia LM Ql (Bld) Slight Abnormal (none) [facility] Segmented neutrophils/100 WBC (Bld) 81 % High 40 - 80 % [facility] Stomatocytes LM Ql (Bld) Slight Abnormal (none) [facility] WBC corrected for nucl RBC (Bld) [#/Vol] 20.70 10*3/uL High 3.60 - 10.70 10*3/uL [facility] No Panel Informationon 06-18 Interpretation and review of laboratory results Abnormal [facility] Interpretation and review of laboratory results Abnormal [facility] SARS-CoV-2 (COVID-19) RNA pa sol FAN+probe (Resp)on 06-18-2022 Interpretation and review of laboratory results Normal [facility] SARS-CoV-2 (COVID-19) RNA FAN+probe Ql (Resp) Not detected Not Detected [facility] XR Chest Single viewon 06-18 [facility] Radiology Study observation (narrative) [facility] XR Chest Single viewOrdered By: Brady Douglas on 06-18-2022 [facility] Work Phone: Bacteria identified Aer cx N om (Lower resp)Ordered By: Latoya Diaz on 06-17-2022 Gram Stain Result Moderate Polymorphonuclear leukocytes per low power field Abnormal [facility] Gram Stain Result Moderate Epithelial cells per low power field Abnormal [facility] Gram Stain Result Positive Abnormal [facility] ealth Gram Stain Result Negative Abnormal [facility] ealth Interpretation and review of laboratory results Abnormal [facility] CBC W Auto Differential pane l (Bld)on [...] Interpretation and review of laboratory results Normal [facility] Manual differential performe d Ql (Bld)on 06-17-2022 [...] [facility] Lymph[facility] Manual 5 [facility] Lymphocytes/100 WBC (Bld) 5 % Low 20 - 40 % [facility] Metamyelocytes (Bld) [#/Vol] 0.6 10*3/uL High NINF - 0.0 10*3/uL [facility] Metamyelocytes Manual 3 [facility] Metamyelocytes/100 WBC (Bld) 3 % High NINF - 0 % [facility] Monocytes (Bld) [#/Vol] 1.4 10*3/uL High 0.0 - 0.8 10*3/uL [facility] Monocytes Manual 7 [facility] alth Monocytes/100 WBC (Bld) 7 % 2 - 10 % [facility] Myelocytes (Bld) [#/Vol] 0.4 10*3/uL High NINF - 0.0 10*3/uL [facility] Health Myelocytes Manual 2 [facility] ealth Myelocytes/100 WBC (Bld) 2 % High NINF - 0 % [facility] Neutrophils (Bld) [#/Vol] 16.2 10*3/uL High 1.8 - 7.0 10*3/uL [facility] Neutrophils Manual 81 [facility] Ovalocytes LM Ql (Bld) Slight Abnormal (none) [place] Platelet morphology finding Nom (Bld) Normal [facility] [...] and review of laboratory results Abnormal [facility] Interpretation and review of laboratory results Abnormal [facility] RF videography Hypopharynx a nd Esophagus Views for swallowing function W speech and W barium contrast Jerry 06-17-2022 [facility] Radiology Study observation (narrative) Roemliaradha Willi alth RF videography Hypopharynx a nd Esophagus Views for swallowing function W speech and W barium contrast POOrdered By: Juve Odonnell on 06-17-2022 [facility] Work Phone: XR Chest Single viewon 06-17 [facility] Radiology Study observation (narrative) Sophia Willi alth CBC W Auto Differential pane l [...] [facility] Lymphocytes Manual 3 [facility] Lymphocytes/100 WBC (Bld) 3 % Low 20 - 40 % [facility] Monocytes (Bld) [#/Vol] 1.0 10*3/uL High 0.0 - 0.8 10*3/uL [facility] Monocytes Manual 5 [facility] alth Monocytes/100 WBC (Bld) 5 % 2 - 10 % [facility] Neutrophils (Bld) [#/Vol] 17.5 10*3/uL High 1.8 - 7.0 10*3/uL [facility] Neutrophils Manual 88 [facility] Neutrophils.hypersegmen chhaya LM Ql (Bld) Present Abnormal (none) [facility] Nucleated RBC/100 WBC (Bld) [Ratio] 1 % [facility] Ovalocytes LM Ql (Bld) Slight Abnormal (none) [place] Polychromasia LM Ql (Bld) Slight Abnormal (none) [...] Interpretation and review of laboratory results Abnormal [facility] Interpretation and review of laboratory results Abnormal [facility] Interpretation and review of laboratory results Normal [facility] Interpretation and review of laboratory results Abnormal [facility] FIO2 4 [facility] Interpretation and review of laboratory results Abnormal [facility] Interpretation and review of laboratory results Abnormal [facility] Interpretation and review of laboratory results Abnormal [facility] Procalcitonin [Mass/Vol]on 0 06-16-2022 Interpretation and review of laboratory results Abnormal [facility] XR Chest Single viewon 06-16 [facility] Radiology Study observation (narrative) [facility] XR Chest Single viewOrdered By: Loki Roberts on 06-16-2022 [facility] Work Phone: Bacteria identified Anaer cx Nom (Unsp spec)on 06-15-2022 Interpretation and review of laboratory results Normal [facility] Bacteria identified Cx Nom ( Bld)on 06-15-2022 Interpretation and review of laboratory results Normal [facility] CBC W Auto Differential pane l [...] 06-15-2022 CREATININE, URINE 89.1 mg/dL No Range [facility] Laboratory - Chemistry and C hemistry [...] 06-15-2022 Anisocytosis Ql (Bld) Slight Abnormal (none) [facility] Cells Counted Total (Bld) [#] 100 {cells} [...] [facility] Metamyelocytes (Bld) [#/Vol] 0.2 10*3/uL High NINF - 0.0 10*3/uL [facility] Metamyelocytes Manual 1 [facility] Metamyelocytes/100 WBC (Bld) 1 % High NINF - 0 % [facility] Monocytes (Bld) [#/Vol] 1.1 10*3/uL High 0.0 - 0.8 10*3/uL [facility] Monocytes Manual 6 [facility] alth Monocytes/100 WBC (Bld) 6 % 2 - 10 % [facility] Myelocytes (Bld) [#/Vol] 0.4 10*3/uL High NINF - 0.0 10*3/uL [facility] Myelocytes Manual 2 [facility] ealth Myelocytes/100 WBC (Bld) 2 % High NINF - 0 % [facility] Neutrophils (Bld) [#/Vol] 15.2 10*3/uL High 1.8 - 7.0 10*3/uL [facility] Neutrophils Manual 80 [facility] Ovalocytes LM Ql (Bld) Slight Abnormal (none) [place] Platelet morphology finding Nom (Bld) Normal [facility] [...] and review of laboratory results Abnormal [facility] Interpretation and review of laboratory results Normal [facility] Interpretation and review of laboratory results Normal [facility] OSMOLALITY, URINE 598 [facility] ealth [facility] Interpretation and review of laboratory results Abnormal [facility] Interpretation and review of laboratory results Abnormal [facility] Respiratory pathogens DNA an d RNA [...] Hospital Streptococcus pyogenes Not detected Not Detected [facility] Urinalysis complete panel (U )Ordered By: Miranda Ware on 06-15-2022 Bacteria LM.HPF (Urine sed) [#/Area] Negative Negative /HPF [facility] Bilirubin Ql (U) Negative Negative mg/dL [facility] Clarity (U) Slightly Cloudy Abnormal Clear [facility] alth Color (U) Yellow Lt. Yellow [facility] Epithelial cells.squamous LM.HPF (Urine sed) [#/Area] Negative [facility] h Glucose Ql (U) 500 mg/dL Abnormal Normal (<70) [facility] Hemoglobin Ql (U) >1.0 Abnormal Negative mg/dL [facility] Interpretation and review of laboratory results Abnormal [facility] Ketones (U) [Mass/Vol] 20 mg/dL Abnormal Negative [place] Leukocyte esterase Test strip Ql (U) Negative Negative Chika/uL [facility] Mucus LM.HPF (Urine sed) [#/Area] Few Negative /LPF [facility] Nitrite Ql (U) Negative Negative [facility] th pH (U) 6.5 [pH] 5.0 - 8.0 pH [facility] Protein (U) [Mass/Vol] 100 mg/dL Abnormal Negative [place] RBC LM.HPF (Urine sed) [#/Area] /[HPF] Abnormal [facility] Specific gravity (U) [Rel density] 1.026 1.005 - 1.030 [facility] Urobilinogen (U) [Mass/Vol] 6 mg/dL Abnormal Normal (0-1) [facility] WBC LM.HPF (Urine sed) [#/Area] 6-10 Abnormal [facility] XR Chest Single viewon 06-15 [facility] Radiology Study observation (narrative) [facility] alth XR Chest Single viewOrdered By: [...] Hospital Gram Stain Result No organisms seen [facility] CBC W Auto Differential pane l (Bld)on [...] and review of laboratory results Abnormal [facility] Comprehensive metabolic 1998 panelon 06-14-2022 Albumin [Mass/Vol] [...] and review of laboratory results Abnormal [facility] Magnesium [Mass/Vol]on 06-14 Interpretation and review of laboratory results Normal [facility] Manual differential performe d Ql (Bld)on 06-14-2022 Anisocytosis Ql (Bld) Slight Abnormal (none) [facility] Band form neutrophils (Bld) [#/Vol] 0.2 10*3/uL High NINF - 0.0 10*3/uL [facility] Band form neutrophils/100 WBC (Bld) 1 % High NINF - 0 % [facility] Bands Manual 1 [facility] Cells Counted Total (Bld) [#] 100 {cells} [facility] Eosinophils (Bld) [#/Vol] 0.7 10*3/uL High 0.0 - 0.5 10*3/uL [facility] Eosinophils Manual 4 High 0 - 1 [facility] Eosinophils/100 WBC (Bld) 4 % 1 - 6 % [facility] Leukocyte morphology finding Nom (Bld) Normal [facility] Health Lymphocytes (Bld) [#/Vol] 1.9 10*3/uL 1.0 - 4.3 10*3/uL [facility] Lymphocytes Manual 10 [facility] Lymphocytes/100 WBC (Bld) 10 % Low 20 - 40 % [facility] Monocytes (Bld) [#/Vol] 0.6 10*3/uL 0.0 - 0.8 10*3/uL [facility] Monocytes Manual 3 [facility] Mon[facility]/100 WBC (Bld) 3 % 2 - 10 % S [facility] Myelocytes (Bld) [#/Vol] 0.4 10*3/uL High NINF - 0.0 10*3/uL [facility] Myelocytes Manual 2 [facility] Myelocytes/100 WBC (Bld) 2 % High NINF - 0 % [facility] Neutrophils (Bld) [#/Vol] 15.1 10*3/uL High 1.8 - 7.0 10*3/uL [facility] Neutrophils Manual 80 [facility] Nucleated RBC/100 WBC (Bld) [Ratio] 1 % [facility] Ovalocytes LM Ql (Bld) Slight Abnormal (none) [facility] Platelet morphology finding Nom (Bld) Normal [facility] Polychromasia LM Ql (Bld) Slight Abnormal (none) [facility] Segmented neutrophils/100 WBC (Bld) 80 % 40 - 80 % [facility] WBC corrected for nucl RBC (Bld) [#/Vol] 18.70 10*3/uL High 3.60 - 10.70 10*3/uL [facility] No Panel Informationon 06-14 Interpretation and review of laboratory results Abnormal [facility] Procalcitonin [Mass/Vol]on 0 06-14-2022 Interpretation and review of laboratory results Abnormal [facility] Bacteria identified Aer cx N om (Unsp spec)Ordered By: Des Boston on 06-13-2022 Gram Stain Result Rare Polymorphonucle ar leukocytes per low power field [facility] Gram Stain Result No organisms seen [facility] CBC W Auto Differential pane l (Bld)on [...] 10*3/uL High 3.6 - 10.7 10*3/uL [facility] CT Abdomen and Pelvis W cont rast Constantine 06-13-2022 [facility] Radiology Study observation (narrative) [facility] CT Abdomen and Pelvis W cont [...] (Unsp spec) No growth at 72 hours [facility] ealth Magnesium [Mass/Vol]on 06-13 Interpretation and review of laboratory results Normal [facility] No Panel Informationon 06-13 [facility] US Abdomen limitedon 023 [facility] Radiology Study observation (narrative) [facility] He alth CBC W Auto Differential pane l [...] 10*3/uL High 3.6 - 10.7 10*3/uL [facility] Comprehensive metabolic 1998 panelon 06-12-2022 Albumin [Mass/Vol] [...] on 06-12-2022 Right Pop Rfx 1.0 s [facility] h Work Phone: No Panel Informationon 06-12 CV CPACS Interpretation and review of laboratory results Abnormal [facility] Respiratory pathogens DNA an d RNA panel [...] Hospital Streptococcus pyogenes Not detected Not Detected [facility] Vascular US lower extremity venous duplex [...] and peroneal veins were visualized in segments. Animal Assisted Therapist Details A villegas scale, color Doppler imaging and spectral Doppler analysis ultrasound was performed. During the study longitudinal and transverse views were obtained. Pulsed wave doppler was performed. The exam was performed with the patient in the supine position. Overall the study quality was adequate. CV CPACS XR Chest Single viewon 06-12 [facility] Radiology Study observation (narrative) [facility] X[facility] Chest Single viewOrdered By: Asad Mccarthy on 06-12-2022 [facility] [employer] Phone: XR Foot - right 3 [facility] Radiology Study observation (narrative) [facility] X[facility] Foot - right 3 ViewsOrder ed By: Ezra Guthrie on 06-12-2022 [facility] Phone: CBC W Auto Differential pane l (Bld)Ordered By: Jacobo Ward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 Phone: [facility] [employer] 04-09-2024 13:42-0500 Systolic blood pressure 124 mm[Hg] Danielle Arreola DPM Work Phone: [facility] [employer] 03-27-2024 14:58-0500 Body temperature 97.9 [degF] Julissa Taylor DO Work Phone: [facility] [employer] 03-27-2024 14:58-0500 Diastolic blood pressure 75 mm[Hg] Julissa Claudia DO Work Phone: [facility] [employer] 03-27-2024 14:58-0500 Heart rate 54 /min Julissa Claudia DO Work Phone: [facility] [employer] 03-27-2024 14:58-0500 Respiratory rate 18 /min Julissa Claudia DO Work Phone: [facility] [employer] 03-27-2024 14:58-0500 Systolic blood pressure 116 mm[Hg] Julissa Claudia DO Work Phone: [facility] [employer] 03-13-2024 13:57-0500 Body temperature 97.81 [degF] Julissa Claudia DO Work Phone: [facility] [employer] 03-13-2024 13:57-0500 Diastolic blood pressure 77 mm[Hg] Julissa Claudia DO Work Phone: [facility] [employer] 03-13-2024 13:57-0500 Heart rate 75 /min Julissa Claudia DO Work Phone: [facility] [employer] 03-13-2024 13:57-0500 Respiratory rate 20 /min Julissa Claudia DO Work Phone: [facility] [employer] 03-13-2024 13:57-0500 Systolic blood pressure 135 mm[Hg] Julissa Claudia DO Work Phone: [facility] [employer] 03-06-2024 10:37-0500 Body temperature 97.7 [degF] Anai Brown MANAGER BUSINESS PROCESS - HOME CARE PHYSICAL THERAPIST Work Phone: [facility] [employer] 03-06-2024 10:37-0500 Diastolic blood pressure 73 mm[Hg] Anai Brown MANAGER BUSINESS PROCESS - HOME CARE PHYSICAL THERAPIST Work Phone: [facility] [employer] 03-06-2024 10:37-0500 Heart rate 82 /min Anai Brown MANAGER BUSINESS PROCESS - HOME CARE PHYSICAL THERAPIST Work Phone: [facility] [employer] 03-06-2024 10:37-0500 Respiratory rate 18 /min Anai Brown MANAGER BUSINESS PROCESS - HOME CARE PHYSICAL THERAPIST Work Phone: [facility] [employer] 03-06-2024 10:37-0500 Systolic blood pressure 101 mm[Hg] Anai Brown MANAGER BUSINESS PROCESS - HOME CARE PHYSICAL THERAPIST Work Phone: [facility] [employer] 02-28-2024 09:41-0500 Body temperature 97.11 [degF] Julissa Claudia DO Work Phone: [facility] [employer] 02-28-2024 09:41-0500 Diastolic blood pressure 72 mm[Hg] Julissa Claudia DO Work Phone: [facility] [employer] 02-28-2024 09:41-0500 Heart rate 60 /min Julissa Claudia DO Work Phone: [facility] [employer] 02-28-2024 09:41-0500 Respiratory rate 20 /min Julissa Claudia DO Work Phone: [facility] [employer] 02-28-2024 09:41-0500 Systolic blood pressure 133 mm[Hg] Julissa Claudia DO Work Phone: [facility] [employer] 02-21-2024 09:56-0500 Body temperature 97.2 [degF] Julissa Claudia DO Work Phone: [facility] [employer] 02-21-2024 09:56-0500 Diastolic blood pressure 72 mm[Hg] Julissa Claudia DO Work Phone: [facility] [employer] 02-21-2024 09:56-0500 Heart rate 79 /min Julissa Claudia DO Work Phone: [facility] [employer] 02-21-2024 09:56-0500 Respiratory rate 18 /min Julissa Claudia DO Work Phone: [facility] [employer] 02-21-2024 09:56-0500 Systolic blood pressure 113 mm[Hg] Julissa Claudia DO Work Phone: [facility] [employer] 02-18-2024 03:11-0500 Diastolic blood pressure 72 mm[Hg] Kaylee Bunch MD Work Phone: [facility] [employer] 02-18-2024 03:11-0500 Heart rate 88 /min Kaylee Bunch MD Work Phone: [facility] [employer] 02-18-2024 03:11-0500 Respiratory rate 16 /min Kaylee Bunch MD Work Phone: [facility] [employer] 02-18-2024 03:11-0500 SaO2% (BldA) [Mass fraction] 99 % Kaylee Bunch MD Work Phone: [facility] [employer] 02-18-2024 03:11-0500 Systolic blood pressure 103 mm[Hg] Kaylee Bunch MD Work Phone: [facility] [employer] 02-18-2024 01:02-0500 Body temperature 97.7 [degF] Kaylee Bunch MD Work Phone: [facility] [employer] 02-14-2024 08:43-0500 Body temperature 97.2 [degF] Julissa Claudia DO Work Phone: [facility] [employer] 02-14-2024 08:43-0500 Diastolic blood pressure 82 mm[Hg] Julissa Claudia DO Work Phone: [facility] [employer] 02-14-2024 08:43-0500 Heart rate 80 /min Julissa Claudia DO Work Phone: [facility] [employer] 02-14-2024 08:43-0500 Respiratory rate 18 /min Julissa Claudia DO Work Phone: [facility] [employer] 02-14-2024 08:43-0500 Systolic blood pressure 122 mm[Hg] Julissa Claudia DO Work Phone: [facility] [employer] 02-07-2024 09:15-0400 Body temperature 97.81 [degF] Julissa Claudia DO Work Phone: [employer] 02-07-2024 09:15-0400 Diastolic blood pressure 69 mm[Hg] Julissa Claudia DO Work Phone: [facility] [employer] 02-07-2024 09:15-0400 Heart rate 89 /min Julissa Claudia DO Work Phone: [employer] 02-07-2024 09:15-0400 Respiratory rate 18 /min Julissa Claudia DO Work Phone: [facility] [employer] 02-07-2024 09:15-0400 Systolic blood pressure 100 mm[Hg] Julissa Claudia DO Work Phone: [facility] [employer] 01-31-2024 08:18-0400 Body temperature 97.11 [degF] Julissa Claudia DO Work Phone: [facility] [employer] 01-31-2024 08:18-0400 Diastolic blood pressure 74 mm[Hg] Julissa Claudia DO Work Phone: [facility] [employer] 01-31-2024 08:18-0400 Heart rate 89 /min Julissa Claudia DO Work Phone: [facility] [employer] 01-31-2024 08:18-0400 Respiratory rate 18 /min Julissa Claudia DO Work Phone: [facility] [employer] 01-31-2024 08:18-0400 Systolic blood pressure 106 mm[Hg] Julissa Claudia DO Work Phone: [facility] [employer] 01-24-2024 10:12-0400 Body temperature 96.8 [degF] Julissa Claudia DO Work Phone: [facility] [employer] 01-24-2024 10:12-0400 Diastolic blood pressure 78 mm[Hg] Julissa Claudia DO Work Phone: [facility] [employer] 01-24-2024 10:12-0400 Heart rate 89 /min Julissa Claudia DO Work Phone: [facility] [employer] 01-24-2024 10:12-0400 Respiratory rate 18 /min Julissa Claudia DO Work Phone: [facility] [employer] 01-24-2024 10:12-0400 Systolic blood pressure 110 mm[Hg] Julissa Claudia DO Work Phone: [facility] [employer] 01-17-2024 09:53-0400 Body temperature 97.5 [degF] Julissa Claudia DO Work Phone: [facility] [employer] 01-17-2024 09:53-0400 Diastolic blood pressure 93 mm[Hg] Julissa Claudia DO Work Phone: [facility] [employer] 01-17-2024 09:53-0400 Heart rate 91 /min Julissa Claudia DO Work Phone: [facility] [employer] 01-17-2024 09:53-0400 Respiratory rate 20 /min Julissa Claudia DO Work Phone: [facility] [employer] 01-17-2024 09:53-0400 Systolic blood pressure 131 mm[Hg] Julissa Claudia DO Work Phone: [facility] [employer] 01-10-2024 09:29-0400 Body temperature 97.3 [degF] Julissa Claudia DO Work Phone: [facility] [employer] 01-10-2024 09:29-0400 Diastolic blood pressure 78 mm[Hg] Julissa Claudia DO Work Phone: [facility] [employer] 01-10-2024 09:29-0400 Heart rate 92 /min Julissa Claudia DO Work Phone: [facility] [employer] 01-10-2024 09:29-0400 Respiratory rate 18 /min Julissa Claudia DO Work Phone: [facility] [employer] 01-10-2024 09:29-0400 Systolic blood pressure 121 mm[Hg] Julissa Claudia DO Work Phone: [facility] [employer] 01-03-2024 15:08-0400 Body temperature 97.81 [degF] Julissa Claudia DO Work Phone: [facility] [employer] 01-03-2024 15:08-0400 Diastolic blood pressure 66 mm[Hg] Julissa Claudia DO Work Phone: [facility] [employer] 01-03-2024 15:08-0400 Heart rate 76 /min Julissa Claudia DO Work Phone: [facility] [employer] 01-03-2024 15:08-0400 Respiratory rate 18 /min Julissa Claudia DO Work Phone: [facility] [employer] 01-03-2024 15:08-0400 Systolic blood pressure 100 mm[Hg] Julissa Claudia DO Work Phone: [facility] [employer] 12-27-2023 13:43-0400 Body temperature 97.5 [degF] Julissa Claudia DO Work Phone: [facility] [employer] 12-27-2023 13:43-0400 Diastolic blood pressure 65 mm[Hg] Julissa Claudia DO Work Phone: [facility] [employer] 12-27-2023 13:43-0400 Heart rate 62 /min Julissa Claudia DO Work Phone: [facility] [employer] 12-27-2023 13:43-0400 Respiratory rate 18 /min Julissa Claudia DO Work Phone: [facility] [employer] 12-27-2023 13:43-0400 Systolic blood pressure 111 mm[Hg] Julissa Claudia DO Work Phone: [facility] [employer] 12-20-2023 11:10-0400 Body temperature 98.01 [degF] Julissa Claudia DO Work Phone: [facility] [employer] 12-20-2023 11:10-0400 Diastolic blood pressure 74 mm[Hg] Julissa Claudia DO Work Phone: [facility] [employer] 12-20-2023 11:10-0400 Heart rate 64 /min Julissa Claudia DO Work Phone: [facility] [employer] 12-20-2023 11:10-0400 Respiratory rate 18 /min Julissa Claudia DO Work Phone: [facility] [employer] 12-20-2023 11:10-0400 Systolic blood pressure 108 mm[Hg] Julissa Claudia DO Work Phone: [facility] [employer] 12-13-2023 15:19-0400 Body temperature 97.5 [degF] Julissa Claudia DO Work Phone: [facility] [employer] 12-13-2023 15:19-0400 Diastolic blood pressure 68 mm[Hg] Julissa Claudia DO Work Phone: [facility] [employer] 12-13-2023 15:19-0400 Heart rate 62 /min Julissa Claudia DO Work Phone: [facility] [employer] 12-13-2023 15:19-0400 Systolic blood pressure 109 mm[Hg] Julissa Claudia DO Work Phone: [employer] 12-06-2023 10:53-0400 Body temperature 97.9 [degF] Julissa Claudia DO Work Phone: [facility] [employer] 12-06-2023 10:53-0400 Diastolic blood pressure 63 mm[Hg] Julissa Claudia DO Work Phone: [facility] [employer] 12-06-2023 10:53-0400 Heart rate 62 /min Julissa Claudia DO Work Phone: [employer] [employer] 12-06-2023 10:53-0400 Respiratory rate 18 /min Julissa Claudia DO Work Phone: [facility] [employer] 12-06-2023 10:53-0400 Systolic blood pressure 94 mm[Hg] Julissa Claudia DO Work Phone: [facility] [employer] 11-29-2023 10:35-0400 Body temperature 97.11 [degF] Julissa Claudia DO Work Phone: [employer] [employer] 11-29-2023 10:35-0400 Diastolic blood pressure 73 mm[Hg] Julissa Claudia DO Work Phone: [facility] [employer] 11-29-2023 10:35-0400 Heart rate 66 /min Julissa Claudia DO Work Phone: [employer] 11-29-2023 10:35-0400 Systolic blood pressure 114 mm[Hg] Julissa Claudia DO Work Phone: [facility] [employer] 11-22-2023 10:57-0400 Body temperature 97.39 [degF] Julissa Claudia DO Work Phone: [employer] [employer] 11-22-2023 10:57-0400 Diastolic blood pressure 75 mm[Hg] Julissa Claudia DO Work Phone: [employer] [employer] 11-22-2023 10:57-0400 Heart rate 79 /min Julissa Claudia DO Work Phone: [employer] 11-22-2023 10:57-0400 Systolic blood pressure 106 mm[Hg] Julissa Claudia DO Work Phone: [facility] 11-17-2023 10:35-0400 Body temperature 97.11 [degF] [facility] Schedule [facility] 11-17-2023 10:35-0400 Diastolic blood pressure 83 mm[Hg] [facility] Schedule [facility] 11-17-2023 10:35-0400 Heart rate 81 /min [facility] Schedule [facility] 11-17-2023 10:35-0400 Respiratory rate 18 /min [facility] Schedule [facility] 11-17-2023 10:35-0400 Systolic blood pressure 119 mm[Hg] [facility] Schedule [facility] 11-15-2023 11:07-0400 Body temperature 97.59 [degF] Julissa Claudia DO Work Phone: [facility] 11-15-2023 11:07-0400 Diastolic blood pressure 69 mm[Hg] Julissa Claudia DO Work Phone: [facility] 11-15-2023 11:07-0400 Heart rate 62 /min Julissa Claudia DO Work Phone: [facility] 11-15-2023 11:07-0400 Respiratory rate 18 /min Julissa Claudia DO Work Phone: [facility] 11-15-2023 11:07-0400 Systolic blood pressure 102 mm[Hg] Julissa Claudia DO Work Phone: [facility] 11-08-2023 09:45-0400 Body temperature 98.29 [degF] Julissa Claudia DO Work Phone: [facility] 11-08-2023 09:45-0400 Diastolic blood pressure 71 mm[Hg] Julissa Claudia DO Work Phone: [facility] 11-08-2023 09:45-0400 Heart rate 91 /min Julissa Claudia DO Work Phone: [facility] 11-08-2023 09:45-0400 Respiratory rate 20 /min Julissa Claudia DO Work Phone: [facility] [employer] 11-08-2023 09:45-0400 Systolic blood pressure 140 mm[Hg] Julissa Claudia DO Work Phone: [facility] [employer] 11-01-2023 08:53-0400 Body temperature 98.01 [degF] Julissa Claudia DO Work Phone: [facility] [employer] 11-01-2023 08:53-0400 Diastolic blood pressure 75 mm[Hg] Julissa Claudia DO Work Phone: [facility] [employer] 11-01-2023 08:53-0400 Heart rate 155 /min Julissa Claudia DO Work Phone: [facility] [employer] 11-01-2023 08:53-0400 Respiratory rate 18 /min Julissa Claudia DO Work Phone: [facility] [employer] 11-01-2023 08:53-0400 Systolic blood pressure 101 mm[Hg] Julissa Claudia DO Work Phone: [facility] [employer] 10-25-2023 08:51-0400 Body temperature 96.8 [degF] Julissa Claudia DO Work Phone: [facility] [employer] 10-25-2023 08:51-0400 Diastolic blood pressure 74 mm[Hg] Julissa Claudia DO Work Phone: [facility] [employer] 10-25-2023 08:51-0400 Heart rate 63 /min Julissa Claudia DO Work Phone: [facility] [employer] 10-25-2023 08:51-0400 Respiratory rate 18 /min Julissa Claudia DO Work Phone: [facility] [employer] 10-25-2023 08:51-0400 Systolic blood pressure 119 mm[Hg] Julissa Claudia DO Work Phone: [facility] [employer] 10-18-2023 10:30-0400 Body temperature 97.2 [degF] Julissa Claudia DO Work Phone: [facility] [employer] 10-18-2023 10:30-0400 Diastolic blood pressure 94 mm[Hg] Julissa Claudia DO Work Phone: [facility] [employer] 10-18-2023 10:30-0400 Heart rate 69 /min Julissaamanda Nelsone DO Work Phone: [facility] [employer] 10-18-2023 10:30-0400 Respiratory rate 18 /min Julissa Claudia DO Work Phone: [facility] [employer] 10-18-2023 10:30-0400 Systolic blood pressure 139 mm[Hg] Julissa Claudia DO Work Phone: [facility] [employer] 10-11-2023 08:55-0400 Body temperature 97.5 [degF] Julissa Claudia DO Work Phone: [facility] [employer] 10-11-2023 08:55-0400 Diastolic blood pressure 79 mm[Hg] Julissa Claudia DO Work Phone: [facility] [employer] 10-11-2023 08:55-0400 Heart rate 79 /min Julissa Claudia DO Work Phone: [facility] [employer] 10-11-2023 08:55-0400 Respiratory rate 18 /min Julissa Claudia DO Work Phone: [facility] [employer] 10-11-2023 08:55-0400 Systolic blood pressure 122 mm[Hg] Julissa Claudia DO Work Phone: [facility] [employer] 10-04-2023 13:55-0400 Body height 177.8 cm Julissa Claudia DO Work Phone: [facility] [employer] 10-04-2023 13:55-0400 Body mass index (BMI) [Ratio] 36.3 kg/m2 Julissa Claudia DO Work Phone: [facility] [employer] 10-04-2023 13:55-0400 Body temperature 97.7 [degF] Julissa Claudia DO Work Phone: [facility] [employer] 10-04-2023 13:55-0400 Body weight 114.76 kg Julissa Claudia DO Work Phone: [facility] [employer] 10-04-2023 13:55-0400 Diastolic blood pressure 70 mm[Hg] Julissa Claudia DO Work Phone: [facility] [employer] 10-04-2023 13:55-0400 Heart rate 79 /min Julissaamanda Nelsone DO Work Phone: [facility] [employer] 10-04-2023 13:55-0400 Systolic blood pressure 110 mm[Hg] Julissa Claudia DO Work Phone: [facility] [employer] 09-27-2023 13:13-0400 Body height 177.8 cm Julissaamanda Nelsone DO Work Phone: [facility] [employer] 09-27-2023 13:13-0400 Body mass index (BMI) [Ratio] 36.3 kg/m2 Julissaamanda Nelsone DO Work Phone: [facility] [employer] 09-27-2023 13:13-0400 Body temperature 97.7 [degF] Julissaamanda Nelsone DO Work Phone: [facility] [employer] 09-27-2023 13:13-0400 Body weight 114.76 kg Julissaamanda Nelsone DO Work Phone: [facility] [employer] 09-27-2023 13:13-0400 Diastolic blood pressure 63 mm[Hg] Julissaamanda Nelsone DO Work Phone: [facility] [employer] 09-27-2023 13:13-0400 Heart rate 88 /min Julissaamanda Nelsone DO Work Phone: [facility] [employer] 09-27-2023 13:13-0400 Systolic blood pressure 94 mm[Hg] Julissaamanda Nelsone DO Work Phone: [facility] [employer] 09-20-2023 14:34-0400 Body height 177.8 cm Julissa Nelsone DO Work Phone: [facility] [employer] 09-20-2023 14:34-0400 Body mass index (BMI) [Ratio] 36.3 kg/m2 Julissaamanda Nelsone DO Work Phone: [facility] [employer] 09-20-2023 14:34-0400 Body temperature 97.2 [degF] Julissaamanda Nelsone DO Work Phone: [facility] [employer] 09-20-2023 14:34-0400 Body weight 114.76 kg Julissaamanda Nelsone DO Work Phone: [facility] [employer] 09-20-2023 14:34-0400 Diastolic blood pressure 75 mm[Hg] Julissa Claudia DO Work Phone: [facility] [employer] 09-20-2023 14:34-0400 Heart rate 71 /min Julissa Claudia DO Work Phone: [facility] [employer] 09-20-2023 14:34-0400 Systolic blood pressure 115 mm[Hg] Julissa Claudia DO Work Phone: [facility] [employer] 09-13-2023 14:17-0400 Body temperature 97.5 [degF] Julissa Claudia DO Work Phone: [facility] [employer] 09-13-2023 14:17-0400 Diastolic blood pressure 60 mm[Hg] Julissa Claudia DO Work Phone: [facility] [employer] 09-13-2023 14:17-0400 Heart rate 58 /min Julissa Claudia DO Work Phone: [facility] [employer] 09-13-2023 14:17-0400 Respiratory rate 20 /min Julissa Claudia DO Work Phone: [facility] [employer] 09-13-2023 14:17-0400 Systolic blood pressure 105 mm[Hg] Julissa Claudia DO Work Phone: [facility] [employer] 09-06-2023 13:34-0400 Body height 177.8 cm Julissa Claudia DO Work Phone: [facility] [employer] 09-06-2023 13:34-0400 Body mass index (BMI) [Ratio] 36.3 kg/m2 Julissa Claudia DO Work Phone: [facility] [employer] 09-06-2023 13:34-0400 Body temperature 97.59 [degF] Julissaamanda Nelsone DO Work Phone: [facility] [employer] 09-06-2023 13:34-0400 Body weight 114.76 kg Julissa Claudia DO Work Phone: [facility] [employer] 09-06-2023 13:34-0400 Diastolic blood pressure 80 mm[Hg] Julissa Claudia DO Work Phone: [facility] [employer] 09-06-2023 13:34-0400 Heart rate 57 /min Julissaamanda Nelsone DO Work Phone: [facility] [employer] 09-06-2023 13:34-0400 Systolic blood pressure 119 mm[Hg] Julissa Claudia DO Work Phone: [facility] [employer] 08-30-2023 09:20-0400 Body height 177.8 cm Julissa Claudia DO Work Phone: [facility] [employer] 08-30-2023 09:20-0400 Body mass index (BMI) [Ratio] 36.3 kg/m2 Julissaamanda Nelsone DO Work Phone: [facility] [employer] 08-30-2023 09:20-0400 Body temperature 97.39 [degF] Julissa Claudia DO Work Phone: [facility] [employer] 08-30-2023 09:20-0400 Body weight 114.76 kg Julissa Claudia DO Work Phone: [facility] [employer] 08-30-2023 09:20-0400 Diastolic blood pressure 86 mm[Hg] Julissaamanda Nelsone DO Work Phone: [facility] [employer] 08-30-2023 09:20-0400 Heart rate 79 /min Julissa Claudia DO Work Phone: [facility] [employer] 08-30-2023 09:20-0400 Systolic blood pressure 126 mm[Hg] Julissa Claudia DO Work Phone: [facility] [employer] 08-23-2023 14:03-0400 Body mass index (BMI) [Ratio] 36.3 kg/m2 Julissa Claudia DO Work Phone: [facility] [employer] 08-23-2023 14:03-0400 Body temperature 98.2 [degF] Julissa Claudia DO Work Phone: [facility] [employer] 08-23-2023 14:03-0400 Body weight 114.76 kg Julissa Claudia DO Work Phone: [facility] [employer] 08-23-2023 14:03-0400 Diastolic blood pressure 67 mm[Hg] Julissa Claudia DO Work Phone: [facility] [employer] 08-23-2023 14:03-0400 Heart rate 82 /min Julissaamanda Taylor DO Work Phone: [facility] 08-23-2023 14:03-0400 Respiratory rate 18 /min Julissa Taylor DO Work Phone: [facility] [employer] 08-23-2023 14:03-0400 Systolic blood pressure 93 mm[Hg] Julissaamanda Nelsone DO Work Phone: [facility] [employer] 06-23-2023 03:03-0400 Diastolic blood pressure 90 mm[Hg] Fred Holloway MD Work Phone: [facility] [employer] 06-23-2023 03:03-0400 Heart rate 81 /min Fred Holloway MD Work Phone: [facility] [employer] 06-23-2023 03:03-0400 Respiratory rate 14 /min Fred Holloway MD Work Phone: [facility] [employer] 06-23-2023 03:03-0400 SaO2% (BldA) [Mass fraction] 96 % Fred Holloway MD Work Phone: [facility] [employer] 06-23-2023 03:03-0400 Systolic blood pressure 153 mm[Hg] Fred Holloway MD Work Phone: [facility] [employer] 06-22-2023 21:52-0400 Body height 177.8 cm Fred Holloway MD Work Phone: [facility] [employer] 06-22-2023 21:52-0400 Body temperature 97.9 [degF] Fred Holloway MD Work Phone: [facility] [employer] 06-16-2023 14:09-0500 Diastolic blood pressure 68 mm[Hg] Chhaya Saldana MD Work Phone: [facility] [place] 06-16-2023 14:09-0500 Heart rate 56 /min Chhaya Saldana MD Work Phone: [facility] [place] 06-16-2023 14:09-0500 SaO2% (BldA) [Mass fraction] 96 % Chhaya Saldana MD Work Phone: [facility] 06-16-2023 14:09-0500 Systolic blood pressure 93 mm[Hg] Chhaya Saldana MD Work Phone: [facility] 11-17-2022 13:14-0400 Body height 185.4 cm Jesús Ellis MD Work Phone: [facility] [employer] 11-17-2022 13:14-0400 Body mass index (BMI) [Ratio] 33.38 kg/m2 Jesús Ellis MD Work Phone: [facility] [employer] 11-17-2022 13:14-0400 Body temperature 97.9 [degF] Jesús Ellis MD Work Phone: [facility] [employer] 11-17-2022 13:14-0400 Body weight 114.76 kg Jesús Ellis MD Work Phone: [facility] [employer] 11-17-2022 13:14-0400 Diastolic blood pressure 80 mm[Hg] Jesús Ellis MD Work Phone: [facility] [employer] 11-17-2022 13:14-0400 Heart rate 57 /min Jesús Ellis MD Work Phone: [facility] [employer] 11-17-2022 13:14-0400 Respiratory rate 16 /min Jesús Ellis MD Work Phone: [facility] [employer] 11-17-2022 13:14-0400 SaO2% (BldA) [Mass fraction] 96 % Jesús Ellis MD Work Phone: [facility] [employer] 11-17-2022 13:14-0400 Systolic blood pressure 125 mm[Hg] Jesús Ellis MD Work Phone: [facility] [employer] 11-16-2022 09:51-0400 Body mass index (BMI) [Ratio] 32.14 kg/m2 Josette Diaz PA-C Work Phone: [facility] [employer] 11-16-2022 09:51-0400 Body temperature 98.01 [degF] Josette Diaz PA-C Work Phone: [facility] [employer] 11-16-2022 09:51-0400 Body weight 107.5 kg Josette Diaz PA-C Work Phone: [facility] [employer] 11-16-2022 09:51-0400 Diastolic blood pressure 60 mm[Hg] Josette Mccarthyson PA-C Work Phone: [facility] [employer] 11-16-2022 09:51-0400 Heart rate 60 /min Josette Mccarthyson PA-C Work Phone: [facility] [employer] 11-16-2022 09:51-0400 Systolic blood pressure 90 mm[Hg] Josette Mccarthyson PA-C Work Phone: [facility] [employer] 07-29-2022 11:58-0400 Body temperature 98.2 [degF] Brady Powell MD Work Phone: [facility] [employer] 07-29-2022 11:58-0400 Diastolic blood pressure 56 mm[Hg] Brady Powell MD Work Phone: [facility] [employer] 07-29-2022 11:58-0400 Heart rate 68 /min Brady Powell MD Work Phone: [facility] [employer] 07-29-2022 11:58-0400 Systolic blood pressure 102 mm[Hg] Brady Powell MD Work Phone: [facility] [employer] 06-23-2022 13:05-0400 Body height 188 cm Tresa Smallwood DO Work Phone: [facility] [employer] 06-23-2022 12:03-0400 Body temperature 98.91 [degF] Tresa Smallwood DO Work Phone: [facility] [employer] 06-23-2022 12:03-0400 Diastolic blood pressure 95 mm[Hg] Tresa Smallwood DO Work Phone: [facility] [employer] 06-23-2022 12:03-0400 Heart rate 97 /min Tresa Smallwood DO Work Phone: [facility] [employer] 06-23-2022 12:03-0400 Respiratory rate 18 /min Tresa Smallwood DO Work Phone: [employer] 06-23-2022 12:03-0400 SaO2% (BldA) [Mass fraction] 95 % Tresa Smallwood DO Work Phone: [employer] 06-23-2022 12:03-0400 Systolic blood pressure 127 mm[Hg] Tresa Smallwood DO Work Phone: [employer] 06-22-2022 06:00-0400 Body mass index (BMI) [Ratio] 31.83 kg/m2 Tresa Smallwood DO Work Phone: [employer] 06-22-2022 06:00-0400 Body weight 112.5 kg Tresa Smallwood DO Work Phone: [employer] 06-16-2022 09:44-0500 SaO2% (BldA) [Mass fraction] 94.0 % Tresa Smallwood DO Work Phone: [employer] 06-26-2020 19:13-0400 BP Diastolic 92 mm[Hg] Loki [...] 02-19-2020 20:13-0500 Body Temperature 98.2 [degF] [facility] [place] [place] 02-19-2020 20:13-0500 BP Diastolic 84 mm[Hg] [facility] [place] [facility] [place] 02-19-2020 20:13-0500 BP Systolic 146 mm[Hg] Melly Serrano [facility] [place] , [place] 02-19-2020 20:13-0500 Pulse (Heart Rate) 85 /min Melly Serrano [facility] [place], [place] 02-19-2020 20:13-0500 Pulse Oximetry 95 % Melly Serrano [facility] [place] , [place] 02-19-2020 20:13-0500 Respiratory Rate 18 /min Melly Serrano [facility] [place], [place] 04-05-2019 17:19-0500 Diastolic blood pressure 76 mm[Hg] Jesús Ellis MD Work Phone: [facility] Work Phone: 04-05-2019 17:19-0500 Respiratory rate 16 [...] 97.81 [degF] Jesús Ellis MD Work Phone: [facility] Work Phone: 04-05-2019 13:20-0500 Body weight 112.49 kg Jesús Ellis MD Work Phone: [facility] Work Phone: Encounters Encounter Date Encounter Type Care Provider Facility Start: 01-13-2025 End: 01-13-2025 ambulatory DEMETRIUS FENTON Facility:[facility] Start: 01-13-2025 Registered Referred Demetrius Fenton - [facility] [employer] Start: 01-13-2025 End: 01-13-2025 ambulatory Demetrius WICK Facility:[facility] Start: 01-07-2025 Registered Referred Demetrius Fenton - [facility] Start: 01-07-2025 End: 01-07-2025 ambulatory Demetrius WICK Facility:[facility] Start: 12-10-2024 Registered Referred Demetrius Fenton - [employer] [employer] Start: 12-10-2024 End: 12-10-2024 ambulatory Demetrius WICK Facility:[facility] Start: 12-05-2024 End: 12-05-2024 ambulatory Gunnar WICK -[facility] Start: 12-05-2024 End: 12-05-2024 Departed Referred Demetrius Fenton -[facility] Start: 12-05-2024 End: 12-05-2024 ambulatory Demetrius WICK Facility:[facility] Start: 10-21-2024 ambulatory Gunnar WICK Fac ility:[facility] Start: 10-21-2024 Registered Referred Gunnar Cummings -[facility] Start: 09-20-2024 ambulatory Demetrius WICK Faci lity:[facility] Start: 07-29-2024 End: 07-29-2024 ambulatory Demetrius WICK [facility] Work Phone: Start: 07-29-2024 End: 07-29-2024 Departed Referred Demetrius Fenton -[facility] Start: 07-29-2024 Registered Referred Demetrius Fenton - [employer] [employer] Start: 07-29-2024 End: 07-29-2024 ambulatory Demetrius WICK Facility:[facility] Start: 07-22-2024 End: 07-22-2024 ambulatory Demetrius WICK [facility] Work Phone: Start: 07-22-2024 End: 07-22-2024 Departed Referred Demetrius ZUNIGA Start: 07-22-2024 Registered Referred Demetrius Lilliesunday Dominique [facility] ZUNIGA Start: 07-22-2024 End: 07-22-2024 ambulatory Demetrius Suzy WICK Facility:[facility] Start: 07-08-2024 End: 07-08-2024 Patient encounter procedure Chhaya Saldana MD Work Phone: Neurology Comment on above: Chronic daily headac he (Primary Dx); Traumatic brain injury with loss of consciousness, sequela Start: 07-08-2024 End: 07-08-2024 ambulatory Demetrius WICK [facility] Work Phone: Start: 07-08-2024 End: 07-08-2024 Departed Referred Demetrius ZUNIGA Start: 07-08-2024 Registered Referred Demetrius ZUNIGA Start: 07-08-2024 End: 07-08-2024 ambulatory Demetrius Lilliesunday WICK Facility:[facility] Start: 06-10-2024 End: 06-10-2024 ambulatory Demetrius WICK [facility] Work Phone: Start: 06-10-2024 End: 06-10-2024 Departed Referred Demetrius ZUNIGA Start: 06-10-2024 End: 06-10-2024 ambulatory Demetrius WICK Facility:[facility] Start: 04-09-2024 End: 04-09-2024 Office outpatient [...] Start: 04-09-2024 End: 04-09-2024 ambulatory DEMETRIUS FENTON [facility] Start: 03-27-2024 End: 03-27-2024 Office outpatient visit 15 minutes Julissa Taylor DO Work Phone: [facility] Comment on above: 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) (Primary Dx); Peripheral venous insufficiency [I87.2] Start: 03-27-2024 End: 03-27-2024 ambulatory DEMETRIUS FENTON [facility] Start: 03-20-2024 End: 03-20-2024 [facility] Start: 03-18-2024 ambulatory Demetrius Fenton [facility] Faci lity:[facility] Start: 03-13-2024 End: 03-13-2024 Subsequent hospital visit by physician Julissa Taylor DO Work Phone: [facility] Comment on above: Arrived Start: 03-13-2024 End: 03-13-2024 ambulatory DEMETRIUS HAMMERSUNDAY [facility] Start: 03-13-2024 ambulatory Demetrius Fenton OLS Faci lity:[facility] Start: 03-13-2024 Registered Referred Demetrius Suzy - [facility] Start: 03-06-2024 End: 03-06-2024 Subsequent hospital visit by physician Anai Fox CNP Work Phone: [facility] Wound [...] insufficiency [I87.2] Start: 03-06-2024 End: 03-06-2024 ambulatory [facility] Start: 02-28-2024 End: 02-28-2024 Subsequent hospital visit [...] Decreased mobility Start: 02-28-2024 End: 02-28-2024 ambulatory [facility] Start: 02-21-2024 End: 02-21-2024 Subsequent hospital visit by physician Julissa Taylor DO Work Phone: [facility] Comment on above: Arrived Start: 02-21-2024 End: 02-21-2024 ambulatory [facility] Start: 02-18-2024 End: 02-18-2024 Emergency department patient visit Kaylee Bunch MD Work Phone: [facility] Comment on above: Nonintractable heada [...] mobility Start: 02-14-2024 End: 02-14-2024 ambulatory DEMETRIUS [facility] Start: 02-07-2024 End: 02-07-2024 ambulatory [facility] Start: 02-07-2024 End: 02-07-2024 Office outpatient visit 15 minutes Julissa Reina Claudia DO Work Phone: [facility] mobility Start: 01-31-2024 End: 01-31-2024 ambulatory DEMETRIUS [facility] Start: 01-24-2024 End: 01-24-2024 ambulatory DEMETRIUS [facility] Start: 01-24-2024 End: 01-24-2024 Office outpatient visit 15 minutes Julissa Taylor DO Work Phone: [facility] Comment on above: 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) (Primary Dx); Venous insufficiency (chronic) (peripheral); Decreased mobility Start: 01-17-2024 End: 01-17-2024 ambulatory DEMETRIUS [facility] Start: 01-17-2024 End: 01-17-2024 Office outpatient visit 15 minutes Julissa Taylor DO Work Phone: [facility] Comment on above: 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) (Primary Dx); Venous insufficiency (chronic) (peripheral); Decreased mobility Start: 01-10-2024 End: 01-10-2024 ambulatory [facility] Start: 01-10-2024 End: 01-10-2024 Office outpatient visit 15 minutes Julissa Taylor DO Work Phone: [facility] Comment on above: 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) (Primary Dx); Venous insufficiency (chronic) (peripheral); Decreased mobility Start: 01-03-2024 End: 01-03-2024 Office outpatient visit 15 minutes Julissa Taylor DO Work Phone: [facility] Comment on above: 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) (Primary Dx); Venous insufficiency (chronic) (peripheral); Decreased mobility Start: 01-03-2024 End: 01-03-2024 ambulatory [facility] Start: 12-27-2023 End: 12-27-2023 Subsequent hospital visit by physician Julissa Taylor DO Work Phone: [facility] Comment on above: Arrived Start: 12-27-2023 End: 12-27-2023 ambulatory [facility] Start: 12-20-2023 End: 12-20-2023 Office outpatient visit 15 minutes Julissa Taylor DO Work Phone: [facility] Comment on above: 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) (Primary Dx); Venous insufficiency (chronic) (peripheral); Lymphedema; Decreased mobility Start: 12-20-2023 End: 12-20-2023 ambulatory [facility] Start: 12-13-2023 End: 12-13-2023 Office outpatient visit 15 minutes Julissa Taylor DO Work Phone: [facility] Comment on above: 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) (Primary Dx); Venous insufficiency (chronic) (peripheral); Lymphedema; Decreased mobility Start: 12-13-2023 End: 12-13-2023 ambulatory [facility] Start: 12-06-2023 End: 12-06-2023 ambulatory [facility] Start: 12-06-2023 End: 12-06-2023 Office outpatient visit 15 minutes Julissa Taylor DO Work Phone: [employer] [facility] Comment on above: 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) (Primary Dx); Venous insufficiency (chronic) (peripheral); Lymphedema; Decreased mobility Start: 11-29-2023 End: 11-29-2023 ambulatory [facility] Start: 11-29-2023 End: 11-29-2023 Office outpatient visit 15 minutes [facility] DO [facility] Comment on above: 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) (Primary Dx); Venous insufficiency (chronic) (peripheral); Lymphedema; Decreased mobility; Cellulitis of right lower leg Start: 11-08-2023 End: 11-08-2023 ambulatory [facility] Start: 11-08-2023 End: 11-08-2023 Office outpatient visit 15 minutes Julissa Taylor DO Work Phone: [employer] [facility] Comment on above: 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) (Primary Dx); Venous insufficiency (chronic) (peripheral); Lymphedema; Decreased mobility Start: 11-01-2023 End: 11-01-2023 [facility] Start: 11-01-2023 End: 11-01-2023 Office outpatient visit 15 minutes Julissa Tyalor DO Work Phone: [employer] [facility] Comment on above: 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) (Primary Dx); Venous insufficiency (chronic) (peripheral); Lymphedema; Decreased mobility Start: 10-25-2023 End: 10-25-2023 [facility] Start: 10-25-2023 End: 10-25-2023 Subsequent hospital visit by physician Julissa Taylor DO Work Phone: [employer] [facility] Comment on above: 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) (Primary Dx); Venous insufficiency (chronic) (peripheral); Lymphedema; Decreased mobility; Non-pressure chronic ulcer right lower leg, limited to breakdown skin (HCC) Start: 10-18-2023 End: 10-18-2023 [facility] Start: 10-18-2023 End: 10-18-2023 Office outpatient visit 15 minutes Julissa Taylor DO Work Phone: [employer] [facility] Comment on above: 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) (Primary Dx); Venous insufficiency (chronic) (peripheral); Lymphedema; Decreased mobility; Cellulitis of left foot Start: 10-11-2023 End: 10-11-2023 ambulatory [facility] Start: 10-11-2023 End: 10-11-2023 Subsequent hospital visit by physician Julissa Taylor DO Work Phone: [employer] [facility] Comment on above: 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) (Primary Dx); Venous insufficiency (chronic) (peripheral); Lymphedema; Decreased mobility Start: 10-04-2023 End: 10-04-2023 Subsequent hospital visit by physician Julissa Mack Phone: [employer] [facility] Comment on above: 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) (Primary Dx); Venous insufficiency (chronic) (peripheral); Lymphedema; Decreased mobility Start: 10-04-2023 End: 10-04-2023 ambulatory [facility] Start: 09-27-2023 End: 09-27-2023 Office outpatient visit 15 minutes Julissa Mack Phone: [employer] [facility] Comment on above: 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) (Primary Dx); Venous insufficiency (chronic) (peripheral); Lymphedema Start: 09-27-2023 End: 09-27-2023 Subsequent hospital visit by physician [facility]issa [facility] Comment on above: Arrived Start: 09-27-2023 End: 09-27-2023 ambulatory [facility] Start: 09-20-2023 End: 09-20-2023 Office outpatient visit 15 minutes Julissa Taylor DO Work Phone: [facility] Comment on above: 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) (Primary Dx); Venous insufficiency (chronic) (peripheral); Lymphedema Start: 09-20-2023 End: 09-20-2023 ambulatory [facility] Start: 09-13-2023 End: 09-13-2023 ambulatory [facility] Start: 09-13-2023 End: 09-13-2023 Subsequent hospital visit by physician Julissa Mack Phone: [employer] [facility] Comment on above: 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); Venous insufficiency (chronic) (peripheral); Lymphedema Start: 09-06-2023 End: 09-06-2023 ambulatory [facility] Start: 09-06-2023 End: 09-06-2023 Subsequent hospital visit by physician Julissa Mcak Phone: [employer] [facility] Comment on above: 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); Lymphedema; Venous insufficiency (chronic) (peripheral); Non-pressure chronic ulcer right lower leg, limited to breakdown skin (HCC) Start: 08-30-2023 End: 08-30-2023 Subsequent hospital visit by physician Julissa Mack Phone: [employer] [facility] Comment on above: Venous insufficiency (chronic) (peripheral) (Primary Dx); Lymphedema; Non-pressure chronic ulcer right lower leg, limited to breakdown skin (HCC); 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); Decreased mobility Start: 08-30-2023 End: 08-30-2023 [facility] Start: 08-23-2023 End: 08-23-2023 Subsequent hospital visit by physician Julissa Mack Phone: [employer] [facility] Comment on above: Lymphedema (Primary Dx); Venous insufficiency (chronic) (peripheral); Non-pressure chronic ulcer right lower leg, limited to breakdown skin (HCC); 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); Decreased mobility Start: 08-23-2023 End: 08-23-2023 ambulatory [facility] Start: 07-16-2023 Registered Referred [facility] [place] [facility] Start: 06-28-2023 End: 06-28-2023 ambulatory [facility] Work Phone: Start: 06-28-2023 End: 06-28-2023 Departed Referred [facility] [employer] [facility] Start: 06-27-2023 End: 06-27-2023 ambulatory [facility] Work Phone: Start: 06-27-2023 End: 06-27-2023 Departed Referred [facility] [employer] [facility] Start: 06-27-2023 Registered Referred [facility] [employer] [facility] Start: 06-22-2023 End: 06-23-2023 Emergency department patient visit Fred Holloway MD Work Phone: [facility] ED Comment on above: Cellulitis of [...] type Start: 06-12-2023 End: 06-12-2023 Departed Referred [facility] Start: 03-14-2023 End: 03-14-2023 ambulatory [facility] Work Phone: Start: 03-14-2023 End: 03-14-2023 Departed Referred [facility] Start: 03-14-2023 Registered Referred [facility] [employer] [facility] Start: 03-13-2023 End: 03-13-2023 ambulatory [facility] Work Phone: Start: 03-13-2023 End: 03-13-2023 [facility] Start: 02-09-2023 End: 02-09-2023 ambulatory [facility] Work Phone: Start: 02-09-2023 End: 02-09-2023 [facility] [facility] Start: 01-09-2023 End: 01-09-2023 ambulatory [facility] Work Phone: Start: 01-09-2023 End: 01-09-2023 [facility]ed [facility] Start: 01-02-2023 End: 01-02-2023 [facility]ed [facility] Start: 12-14-2022 End: 12-14-2022 ambulatory [facility] Work Phone: Start: 12-14-2022 End: 12-14-2022 [facility]ed [facility] [place] [facility] Start: 12-14-2022 [facility] [place] [facility] Start: 11-28-2022 End: 11-28-2022 ambulatory [facility] Work Phone: Start: 11-28-2022 End: 11-28-2022 [facility]ed [facility] Start: 11-28-2022 [facility] Start: 11-21-2022 End: 11-21-2022 ambulatory [facility] Work Phone: Start: 11-21-2022 End: 11-21-2022 [facility]ed [facility] [facility] Start: 11-21-2022 [facility] [place] [facility] Start: 11-17-2022 End: 11-17-2022 Emergency department patient visit Jesús Ellis MD Work Phone: [facility] Comment on above: Passive suicidal dana ations (Primary Dx) Start: 11-16-2022 End: 11-16-2022 Postop follow up visit related to original px Josette Joe MCKOY Work Phone: [facility] Comment on above: Encounter for postop erative care (Primary Dx) Start: 10-26-2022 End: 10-26-2022 Subsequent hospital visit by physician Candie Vieyra PA-C Work Phone: [facility] CT Comment on above: Calculus of gallblad javier without cholecystitis without obstruction; Peripancreatic abscess Start: 10-24-2022 End: 10-24-2022 ambulatory [facility] Work Phone: Start: 10-24-2022 End: 10-24-2022 Departed Referred [facility] Start: 10-24-2022 Registered Referred [facility] Start: 10-14-2022 Orders Only Candie Vieyra PA-C Work Phone: [facility] Comment on above: Preop testing (Prima ry Dx) Start: 10-14-2022 Patient encounter status Tamir Vieyra [facility]-C [facility] Work Phone: Start: 10-03-2022 Telephone encounter Brady esquivel MD Work Phone: [facility] Start: 09-12-2022 End: 09-12-2022 ambulatory [facility] Work Phone: Start: 09-12-2022 End: 09-12-2022 Departed Referred [facility] Start: 09-12-2022 Registered Referred [facility] Start: 09-07-2022 End: 09-07-2022 ambulatory [facility] Work Phone: Start: 09-07-2022 End: 09-07-2022 Departed Referred [facility] Start: 08-22-2022 End: 08-22-2022 ambulatory [facility] Work Phone: Start: 08-22-2022 End: 08-22-2022 Departed Referred [facility] Start: 08-01-2022 Telephone encounter Candie de la torre PA-C Work Phone: [facility] Start: 08-01-2022 End: 08-01-2022 ambulatory [facility] Work Phone: Start: 08-01-2022 End: 08-01-2022 Departed Referred [facility] Start: 07-29-2022 End: 07-29-2022 Office outpatient new 45 minutes Brady Powell MD Work Phone: [facility] Comment on above: Calculus of gallblad javier without cholecystitis without obstruction (Primary Dx); Peripancreatic abscess; History of traumatic brain injury; Epigastric pain Start: 07-28-2022 End: 07-28-2022 Departed Referred [facility] Start: 07-18-2022 End: 07-18-2022 Departed Referred [facility] Start: 07-15-2022 Telephone encounter Brady esquivel MD Work Phone: [facility] Comment on above: OTHER Start: 06-30-2022 End: 06-30-2022 Departed Referred [facility] Start: 06-09-2022 Transcribe Orders Demetrius zacarias Work Phone: [facility] Central Scheduling Comment on above: Peripheral vascular disease, unspecified (HCC) (Primary Dx); Venous insufficiency (chronic) (peripheral); Non-pressure chronic ulcer of other part of right foot with fat layer exposed (HCC) Start: 06-07-2022 End: 06-23-2022 Evaluation and management of inpatient Tresa Smallwood DO Work Phone: [facility] Start: 05-20-2022 End: 05-20-2022 ambulatory [facility] Work Phone: Start: 05-20-2022 End: 05-20-2022 Departed Referred [facility] [employer] Start: 05-20-2022 [facility] Start: 05-13-2022 End: 05-13-2022 Departed Referred [facility] [employer] Start: 04-29-2022 End: 04-29-2022 ambulatory [facility] Work Phone: Start: 04-29-2022 End: 04-29-2022 Departed Referred [facility] [employer] Start: 04-29-2022 [facility] Start: 04-22-2022 End: 04-22-2022 ambulatory [facility] Work Phone: Start: 04-22-2022 End: 04-22-2022 [facility] Start: 02-17-2022 End: 02-17-2022 ambulatory [facility] Work Phone: Start: 02-17-2022 End: 02-17-2022 Departed Referred [facility] [employer] Start: 02-17-2022 [facility] Start: 02-10-2022 End: 02-10-2022 ambulatory [facility] Work Phone: Start: 02-10-2022 End: 02-10-2022 Departed Referred [facility] [employer] Start: 01-17-2022 End: 01-17-2022 [facility]ed [facility] Start: 11-17-2021 End: 11-17-2021 ambulatory [facility] Work Phone: Start: 11-17-2021 End: 11-17-2021 Departed Referred [facility] Start: 10-20-2021 End: 10-20-2021 Subsequent [...] LEONARDO Work Phone: [facility] Start: 09-27-2021 Registered Referred [facility] Start: 09-17-2021 Registered Referred [facility] Start: 09-01-2021 End: 09-01-2021 Subsequent hospital [...] Subsequent hospital visit by physician Lorie Ospina MANAGER BUSINESS PROCESS - HOME CARE PHYSICAL THERAPIST Work Phone: [facility] Start: 06-08-2021 End: 06-08-2021 Subsequent hospital visit by physician Lorie Ospina MANAGER BUSINESS PROCESS - HOME CARE PHYSICAL THERAPIST Work Phone: [facility] Start: 06-08-2021 End: 06-08-2021 Departed Referred [facility] Start: 05-25-2021 End: 05-25-2021 Subsequent hospital visit by physician Lorie Ospina MANAGER BUSINESS PROCESS - HOME CARE PHYSICAL THERAPIST Work Phone: [facility] Start: 04-06-2021 Registered Referred [facility] Start: 06-26-2020 End: 06-26-2020 Emergency department patient visit Loki Hernandez Work Phone: [facility] ED Comment on above: Injury of head, init ial encounter (Primary Dx); Laceration of scalp, initial encounter Start: 02-19-2020 End: 02-19-2020 Emergency department patient visit Melly Marinelli Work Phone: [facility] ED Comment on above: Hypertensive urgency (Primary Dx); Acute nonintractable headache, unspecified headache type Start: 01-23-2020 End: 01-23-2020 Telephone encounter Margaret Reina (Anesthetic Assistant) Candi Work Phone: [place] [facility] Adult Comment on above: Appointment (needs o utpatient cystoscopy in the OR) Start: 04-05-2019 End: 04-05-2019 Emergency department patient visit Jesús Ellis MD Work Phone: [facility] Emergency Dept Comment on above: Cellulitis of right lower extremity (Primary Dx); Elevated lactic acid level Procedures Date Procedure Procedure Detail Performing Clinician Start: 01-13-2025 Urine culture Gunnar WICK Start: 01-13-2025 Urnls dip stick/tabl et reagent auto microscopy Gunnar WICK Start: 02-28-2024 Debridement subcutan eous tissue 20 [...] Work Phone: Start: 06-19-2022 PULSE OXIMETRY, CONTINUOUS Tresanorman Smallwood DO Work Phone: Start: 06-19-2022 PULSE [...] Work Phone: Start: 06-16-2022 PULSE OXIMETRY, CONTINUOUS [employer] DO Work Phone: Start: 06-16-2022 Glucose quantitative [...] Work Phone: Start: 06-15-2022 PULSE OXIMETRY, CONTINUOUS [employer] DO Work Phone: Start: 06-15-2022 Urnls dip stick/tabl et reagent auto microscopy Brenda Blanco MANAGER BUSINESS PROCESS - HOME CARE PHYSICAL THERAPIST Work Phone: Start: 06-15-2022 Radiologic exam ches t single view Asia Nelson MD Work Phone: Start: 06-15-2022 Chloride urine Brenda Blanco MANAGER BUSINESS PROCESS - HOME CARE PHYSICAL THERAPIST Work Phone: Start: 06-15-2022 End: 06-15-2022 Smr [...] Work Phone: Start: 06-14-2022 PULSE OXIMETRY, CONTINUOUS Tresanorman Smallwood DO Work Phone: Start: 06-14-2022 PULSE [...] Work Phone: Start: 06-13-2022 PULSE OXIMETRY, CONTINUOUS Tresanorman Smallwood DO Work Phone: Start: 06-13-2022 Us [...] xtr veins c omplete bilateral study Demetrius Ortizsunday Work Phone: Start: 06-11-2022 Smr prim src [...] Work Phone: Start: 06-09-2022 PULSE OXIMETRY, CONTINUOUS [employer] DO Work Phone: Start: 06-09-2022 TTE w or w/o contr, cont ECG Matteo Rios MD Work Phone: Start: 06-09-2022 PULSE OXIMETRY, CONTINUOUS [employer] DO Work Phone: Start: 06-09-2022 Ecg routine ecg w/le ast 12 lds trcg only w/o i&r Brenda Hagan Work Phone: Start: 06-09-2022 Basic metabolic pane l calcium total Brenda Hagan Work Phone: Start: 06-08-2022 PULSE OXIMETRY, CONTINUOUS [employer] DO Work Phone: Start: 06-08-2022 Non-invas physiologi c std extremity art 2 level Bertha Earlacre MANAGER BUSINESS PROCESS - HOME CARE PHYSICAL THERAPIST Work Phone: Start: 06-08-2022 TTE w or [...] w/le ast 12 lds i&r only Tresa mSallwood DO Work Phone: Start: 06-07-2022 PULSE OXIMETRY, [...] Basic metabolic pane l calcium total Melly Isis Work Phone: Start: 02-19-2020 Blood count complete automated Melly Marinelli Work Phone: Start: 04-05-2019 Comprehensive metabo lic panel Jesús Ellis MD Work Phone: Investigation of transfusion reaction Microbial culture, routine Urine culture Plan of Treatment Date Care Activity Detail Author Start: 06-26-2030 DTaP/Tdap/Td vaccine (2 - Td or Tdap) DTaP/Tdap/Td vaccine (2 - Td or Tdap) [facility] Start: 06-26-2030 DTaP/Tdap/Td Vaccine s (2 - Td or Tdap) DTaP/Tdap/Td Vaccines (2 - Td or Tdap) [facility] Start: 06-26-2030 DTaP/Tdap/Td Vaccine s (3 - Td or Tdap) DTaP/Tdap/Td Vaccines (3 - Td or Tdap) [facility] Start: 06-26-2030 Urine microalbumin profile DTaP,Tdap,Td Vaccine (3 - Td or Tdap) [facility] Start: 06-26-2030 [facility] Start: 06-07-2027 Lipid panel [facility] Start: 02-17-2027 Diabetes Screening Diabetes [facility] Start: 10-28-2025 Diabetes Screening [facility] Start: 07-08-2025 BP Controlled (<130/80) BP Controlle d (<130/80) [facility] Start: 01-13-2025 End: 01-13-2025 Patient encounter procedure 01/13/2025 11:30 AM EDT Office Visit Neurology [address] [place] [place] [address] Chhaya Saldana MD [address] [place], [place] [id number] 6 month follow up Neurology Comment on above: 6 month follow up Start: 06-15-2024 BP Controlled (<130/80) BP Controlle d (<130/80) [facility] Start: 04-09-2024 End: 04-09-2024 Patient encounter procedure 04/09/2024 2:15 PM EST Appointment [facility] [place] [address] [place] [address] Danielle Arreola DPM [address] [place] [address] [facility] [place] Start: 03-20-2024 End: 03-20-2024 Patient encounter procedure 03/20/2024 10:30 AM EST Appointment [facility] [place] [address] [place] [address] Julissa Taylor, DO [address], [place] [id number] [facility] [place] Start: 03-13-2024 End: 03-13-2024 Patient encounter procedure 03/13/2024 2:30 PM EST Appointment [facility] [place] [address] [place] [address] Julissa Taylor, DO [address], [place] [phone] [facility] [place] Start: 03-06-2024 End: 03-06-2024 Patient encounter procedure 03/06/2024 10:30 AM EST Appointment [facility] [place] [address] [place] [address] Julissa Taylor, DO [address], [place] [phone] [facility] [place] Start: 02-28-2024 End: 02-28-2024 Patient encounter procedure 02/28/2024 10:30 AM EST App[facility]ment [facility] [place] [address] [place] [address] Julissa Taylor, DO [address], [place] [phone] [facility] [place] Start: 02-21-2024 End: 02-21-2024 Patient encounter procedure 02/21/2024 9:45 AM EST Appointment [facility] [place] [address] [place] [address] Julissa Taylor, DO [address], [place] [id number] [facility] [place] Start: 02-14-2024 End: 02-14-2024 Patient encounter procedure 02/14/2024 8:45 AM EST Appointment [facility] [place] [address] [place] [address] Julissa Taylor, DO [address], [place] [phone] [facility] [place] Start: 02-07-2024 End: 02-07-2024 Patient encounter procedure 02/07/2024 8:45 AM EDT Appointment [facility] [place] [address] [place] [address] Julissa Taylor, DO [address], [place] [address] [facility] [place] Start: 01-31-2024 End: 01-31-2024 Patient encounter procedure 01/31/2024 8:45 AM EDT Appointment [facility] [place] [address] [place] [address] Julissa Taylor, DO [address], [place] [phone] [facility] [place] Start: 01-24-2024 End: 01-24-2024 Patient encounter procedure 01/24/2024 10:00 AM EDT Appointment [facility] [place] [address] Julissa Taylor, DO [address] [place] [address] [facility] [place] Start: 01-17-2024 End: 01-17-2024 Patient encounter procedure 01/17/2024 9:45 AM EDT Appointment [facility] [place] [address] [place] [address] Julissa Taylor, DO [address] [facility] [place] [address] [facility] [place] Start: 01-10-2024 End: 01-10-2024 Patient encounter procedure 01/10/2024 9:15 AM EDT Appointment [facility] [place] [address] Julissa Taylor, DO [address] [facility], [place] [phone] [facility] [place] Start: 01-03-2024 End: 01-03-2024 Patient encounter procedure 01/03/2024 3:15 PM EDT Appointment [facility] [place] [address] [place] [address] Julissa Taylor, DO [address] [facility], [place] [phone] [facility] [place] Start: 12-27-2023 End: 12-27-2023 Patient encounter procedure 12/27/2023 2:45 PM EDT Appointment [facility] [place] [address] [place] [address] Julissa Taylor, DO [address] [place], [place] [phone] [facility] [place] Start: 12-20-2023 End: 12-20-2023 Patient encounter procedure 12/20/2023 11:00 AM EDT Appointment [facility] [address] [place] [address] Julissa Taylor, DO [address] [place], [place] [phone] [facility] Start: 12-13-2023 End: 12-13-2023 Patient encounter procedure 12/13/2023 11:00 AM EDT Appointment [employer] [facility] [address] [place] [address] Julissa Taylor, DO [address], [place] [phone] [facility] Start: 12-10-2023 COVID-19 Vaccine ( season) COVID-19 Vaccine () [facility] Start: 12-10-2023 COVID-19 Vaccine () COVID-19 Vaccine () [facility] Start: 12-10-2023 Influenza vaccination [facility] Start: 12-06-2023 End: 12-06-2023 Patient encounter procedure 12/06/2023 10:30 AM EDT Appointment [employer] [facility] [address] [place] [address] Julissa Taylor, DO [address], [place] [phone] [facility] Start: 11-29-2023 End: 11-29-2023 Patient encounter procedure 11/29/2023 10:15 AM EDT Appointment [employer] [facility] [address] [place] [address] Julissa Taylor, DO [address], [place] [phone] [facility] Start: 11-17-2023 End: 11-17-2023 Patient encounter procedure 11/17/2023 10:30 AM EDT [facility] [address] [place] [address] [facility] [facility] Start: 11-15-2023 End: 11-15-2023 Patient encounter procedure 11/15/2023 10:45 AM EDT [facility] [address] [place] [address] Julissa Taylor, DO [address] [place] [address] [facility] Start: 11-08-2023 End: 11-08-2023 Patient encounter procedure 11/08/2023 9:30 AM EDT Appointment [facility] [address] [place] [address] Julissa Taylor, DO [address] [place] [address] [facility] Start: 11-01-2023 End: 11-01-2023 Patient encounter procedure 11/01/2023 8:30 AM EDT Appointment [facility] [address] [place] [address] Julissa Taylor, DO [address] [place], [place] [id number] [facility] Start: 10-25-2023 End: 10-25-2023 Patient encounter procedure 10/25/2023 8:30 AM EDT Appointment [facility] [address] [place] [address] Julissa Taylor, DO [address] [facility] [place] [address] [facility] Start: 10-18-2023 End: 10-18-2023 Patient encounter procedure 10/18/2023 10:15 AM EDT Appointment [facility] [address] [place] [address] Julissa Taylor, DO [address] [place] [address] [facility] Start: 10-11-2023 End: 10-11-2023 Patient encounter procedure 10/11/2023 8:45 AM EDT Appointment [facility] [address] [place] [address] Julissa Taylor, DO [address] [place], [place] [id number] [facility] Start: 10-04-2023 End: 10-04-2023 Patient encounter procedure 10/04/2023 1:45 PM EDT Appointment [facility] [address] [place] [address] Julissa Taylor, DO [address] [place] [address] [facility] Start: 09-27-2023 End: 09-27-2023 Patient encounter procedure 09/27/2023 1:15 PM EDT Appointment [facility] [address] [place] [address] Julissa Taylor, DO [address] [place] [address] [facility] Start: 09-20-2023 End: 09-20-2023 Patient encounter procedure 09/20/2023 2:15 PM EDT Appointment [facility] [address] [place] [address] Julissa Taylor, DO [address] [place] [address] [facility] Start: 09-13-2023 End: 09-13-2023 Patient encounter procedure 09/13/2023 2:00 PM EDT Appointment [facility] [address] [place] [address] Julissa Taylor, DO [address] [facility] [place] [address] [facility] Start: 09-06-2023 End: 09-06-2023 Patient encounter procedure 09/06/2023 9:30 AM EDT Appointment [facility] [address] [place] [address] Julissa Taylor, DO [address] [place], [place] [address] [facility] Start: 08-30-2023 End: 08-30-2023 Patient encounter procedure 08/30/2023 9:30 AM EDT Appointment [facility] [address] [place] [address] Julissa Taylor DO [address] [place] [address] [facility] Start: 07-16-2023 Urine culture Urine Culture [facility] Start: 07-16-2023 [facility] Start: 06-23-2023 Diabetes mellitus screening [facility] Start: 06-19-2023 LIPID SCREEN LIPID SCREEN [facility] Start: 04-10-2023 Medicare Advantage Annual Wellness [facility] Annual Wellness Visit [facility] Start: 01-22-2023 DIABETES SCREEN DIABETES SCREEN [facility] Start: 12-12-2022 Depression Monitoring Depression Mon itoring [facility] Start: 12-12-2022 Depresssion Monitoring Depresssion M onitoring [facility] Start: 12-09-2022 COVID-19 Vaccine ( season) COVID-19 Vaccine ( season) [facility] Start: 12-09-2022 Influenza vaccination [facility] Start: 2022 RSV Immunization age d [...] RSV Vaccine (1 - 1-dose 60+ series) [facility] Start: 11-16-2022 End: 11-16-2022 Patient encounter procedure [facility] Advanced Laproscopic Surgery Start: 11-02-2022 End: 11-02-2022 Admission to same day surgery center 11/02/2022 Surgery Procedural Brady Powell MD [address] [place] [address] [address] [place] [address] LAPAROSCOPIC CHOLECYSTECTOMY, POSSIBLE OPEN [09711 (CPT )] [facility] Comment on above: LAPAROSCOPIC CHOLECY STECTOMY, POSSIBLE OPEN [32967 (CPT )] Start: 11-02-2022 End: 11-02-2022 Laparoscopy surg cholecystectomy [facility] Operating Room Start: 11-02-2022 Subsequent hospital visit by physician 11/02/2022 Hospital Encounter Procedural Brady Powell MD [address] [facility] [address] [place] [id number] [facility] MAIN OR Start: 11-01-2022 End: 11-01-2022 Admission to same day surgery center 11/01/2022 Surgery Procedural Brady Powell MD [address] [facility] [address] [place] [address] LAPAROSCOPIC CHOLECYSTECTOMY, POSSIBLE OPEN [64135 (CPT )] [facility] MAIN OR Comment on above: LAPAROSCOPIC CHOLECY STECTOMY, POSSIBLE OPEN [14979 (CPT )] Start: 11-01-2022 End: 11-01-2022 Laparoscopy surg cholecystectomy LAPAROSCOPIC CHOLECYSTECTOMY Calculus of gallbladder without cholecystitis without obstruction Acute pancreatitis without necrosis or infection, unspecified Epigastric pain 11/01/2022 7:30 AM EDT [facility] Operating Room Start: 11-01-2022 Subsequent hospital visit by physician 11/01/2022 Hospital Encounter Procedural Brady Powell MD [address] [facility] [address] [place] [id number] [facility] MAIN OR Start: 10-28-2022 End: 10-28-2022 Admission to same day surgery center 10/28/2022 8:30 AM EDT - 10/28/2022 10:00 AM EDT Surgery [facility] [address] [facility] [place] [address] Brady Powell MD [address] [facility] [address] [place] [address] LAPAROSCOPIC CHOLECYSTECTOMY, POSSIBLE OPEN [80936 (CPT )] [facility] MAIN OR Comment on above: LAPAROSCOPIC CHOLECY STECTOMY, POSSIBLE OPEN [44666 (CPT )] Start: 10-28-2022 End: 10-28-2022 Anesthesia consultation 10/28/2022 8:30 AM EDT Anesthesia Event [facility] OR [address] [place] [address] Jennie Chamorro NP [address] [place] [address] [facility] MAIN OR Start: 10-28-2022 End: 10-28-2022 Laparoscopy surg cholecystectomy LAPAROSCOP[facility] CHOLECYSTECTOMY Calculus of gallbladder without cholecystitis without obstruction Acute pancreatitis without necrosis or infection, unspecified Epigastric pain 10/28/2022 8:30 AM EDT [facility] Operating Room Start: 10-28-2022 Subsequent hospital visit by physician 10/28/2022 6:30 AM EDT Hospital Encounter [facility] MA[facility] OR [address] [place] [address] Brady Powell MD [address] [place] [address] [address] [place] [address] [facility] MAIN OR Start: 10-26-2022 End: 10-26-2022 Patient encounter procedure [facility] CT Start: 10-26-2022 End: 10-26-2022 Admission to establishment [facility] Pre-Admit Testing Start: 10-14-2022 End: 10-15-2023 Hepatic function 2000 panel - Serum or Plasma Hepatic function panel Lab Routine Preop testing Expected: 10/14/2022 (Approximate), Expires: 10/15/2023 [facility] [employer] Work Phone: Comment on above: Expected: 10/14/2022 (Approximate), Expires: 10/15/2023 Start: 07-29-2022 End: 07-30-2023 Amylase [Enzymatic activity/volume] in Serum or Plasma Amylase Lab Routine Calculus of gallbladder without cholecystitis without obstruction Peripancreatic abscess Expected: 07/29/2022 (Approximate), Expires: 07/30/2023 [facility] Work Phone: Comment on above: Expected: 07/29/2022 (Approximate), Expires: 07/30/2023 Start: 07-29-2022 End: 07-30-2023 Creatinine [Mass/volume] in Serum or Plasma Creatinine, Serum Lab Routine Calculus of gallbladder without cholecystitis without obstruction Peripancreatic abscess Expected: 07/29/2022 (Approximate), Expires: 07/30/2023 [employer] Comment on above: Expected: 07/29/2022 (Approximate), Expires: 07/30/2023 Start: 07-29-2022 End: 07-30-2023 CT Abdomen and Pelvis W contrast IV CT abdomen pelvis w contrast Imaging Routine Calculus of gallbladder without cholecystitis without obstruction Peripancreatic abscess Expected: 07/29/2022, Expires: 07/30/2023 [employer] Comment on above: Expected: 07/29/2022 , Expires: 07/30/2023 Start: 07-29-2022 End: 07-30-2023 Hepatic function 2000 panel - Serum or Plasma Hepatic function panel Lab Routine Calculus of gallbladder without cholecystitis without obstruction Peripancreatic abscess Expected: 07/29/2022 (Approximate), Expires: 07/30/2023 [employer] Comment on above: Expected: 07/29/2022 (Approximate), Expires: 07/30/2023 Start: 07-29-2022 End: 07-30-2023 Lipase [Enzymatic activity/volume] in Serum or Plasma Lipase Lab Routine Calculus of gallbladder without cholecystitis without obstruction Peripancreatic abscess Expected: 07/29/2022 (Approximate), Expires: 07/30/2023 [employer] Comment on above: Expected: 07/29/2022 (Approximate), Expires: 07/30/2023 Start: 07-29-2022 End: 07-29-2022 Patient encounter procedure 07/29/2022 Office Visit General Surgery Brady Powell MD [address] [place] [address] [address] [place] [address] [facility] Advanced Lap[facility] Start: 12-09-2021 Influenza vaccination [facility] Start: 12-09-2021 [facility] Start: 05-24-2021 Annual Wellness Visi t (AWV) Annual Wellness Visit (AWV) [facility] Start: 02-18-2021 Creatinine measurement [facility] Start: 02-18-2021 Potassium [Moles/vol ume] in Serum or Plasma Potassium [facility] Start: 02-18-2021 Potassium monitoring Potassium monit oring [facility] Start: 02-18-2021 ZZPotassium ZZPotassium [facility] Start: 12-09-2020 Influenza vaccination Flu vaccine (# 1) [facility] Start: 04-05-2020 [place] 04-05-2020 Potassium monitoring Pot[place] monit [place] Start: 12-10-2019 Influenza vaccination [place], [place] Start: 12-09-2018 Influenza vaccination Flu vaccine (# 1) [facility] Work Phone: Start: 2017 PROSTATE CANCER SCREENING DISCUSSION PROSTATE CANCER SCREENING DISCUSSION [facility] Start: 2017 Prostate specific antigen measurement Prostate Cancer Screening Discussion [facility] Start: 07-11-2015 Pneumococcal Vaccine : 50+ Years [...] PCV) [facility] Start: 07-11-2015 [facility] Start: 2012 Screening for malign ant neoplasm of colon [facility] Start: 2012 Shingles Vaccine (1 of 2) Shingles Vaccine (1 of 2) [facility] Start: 2012 SHINGRIX VACCINE (1 of 2) SHINGRIX VACCINE (1 of 2) [facility] Start: 2012 Zoster Vaccines (1 of 2) Zoster Vacc yana (1 of 2) [facility] Start: 2012 [facility] Start: 12-05-2007 Screening for malign ant neoplasm of colon [facility] Start: 2002 Prostate specific antigen measurement Prostate Specific Antigen (PSA) Screening or Monitoring [facility] Start: 1981 Urine microalbumin profile DTAP,TDAP,TD (1 - Tdap) [facility] Start: 1980 ANNUAL PCP TEAM WIPER BLENDER ALIZA DISEASE VISIT ANNUAL PCP TEAM CHRONIC DISEASE VISIT [facility] Start: 1980 Anxiety Screening Anxiety Screening [facility] Start: 1980 BP CONTROLLED (<130/80) BP CONTROLLE D (<130/80) [facility] Start: 1980 HEPATITIS C SCREENING HEPATITIS C SC REENING [facility] Start: 1980 Hepatitis C screening [facility] Start: 1980 HIV SCREENING HIV SCREENING [facility] Start: 1980 HIV screening HIV Screening [facility] Start: 1978 COVID-19 Vaccine (1) COVID-19 Vaccin e (1) [facility] Work Phone: Start: 1977 HIV screening HIV screen [facility] Start: 1974 Depression Screen Depression Screen [facility] Start: 1974 Depresssion Monitoring Depresssion M onitoring [facility] Start: 1972 Lipid panel [facility] Start: 12-05-1967 COVID-19 Vaccine (1) COVID-19 Vaccin e (1) [facility] Start: 12-05-1963 MMR Vaccines (1 of 1 - Standard series) MMR Vaccines (1 of 1 - Standard series) [facility] Start: 12-05-1963 [facility] Start: 06-06-1963 COVID-19 Vaccine (#1) COVID-19 Vacci ne (#1) [facility] Start: 06-06-1963 [facility] Start: 1962 Annual Wellness Visi t (AWV) Annual Wellness Visit (AWV) [facility] Start: 1962 Hepatitis B Vaccines (1 of 3 - 3-dose series) Hepatitis B Vaccines (1 of 3 - 3-dose series) [facility] Start: 1962 Hepatitis C screening Hepatitis C sc reen [facility] Start: 1962 HIV screening [facility] Start: 1962 Screening for malign ant neoplasm of colon [facility] Start: 1962 [facility] End: 06-22-2023 Aerobic and Anaerobic Culture with Stain [facility] Work Phone: Comment on above: Once (Lab) for 1 Occ urrences starting 06/22/2023 until 06/22/2023 Bacteria identified in Blood by Culture [facility] [employer] Bacteria identified in Unspecified specimen by Aerobe culture Culture, Aerobic Bacteria with Gram Stain Microbiology STAT 06/22/2023 11:11 PM EDT [facility] End: 06-22-2023 Bacteria identified in Unspecified specimen by Anaerobe culture [facility] [employer] Comment on above: Once for 1 Occurrenc es starting 06/22/2023 until 06/22/2023 End: 10-26-2022 CT Abdomen and Pelvis W contrast IV [facility] [employer] Work Phone: Comment on above: Once for 1 Occurrenc es starting 10/26/2022 until 10/26/2022 Dressing Order: Calc ium alginate (R leg); Weekly; Adaptic (multiple sizes); (Profore light) [facility] Work Phone: Comment on above: Ordered: 11/22/2023 Dressing Order: Calc ium alginate; 4x4 gauze, ABDs; Kerlex, Paper tape; Double Layer tubigrip Dressing Order: Calcium alginate; 4x4 gauze, ABDs; Kerlex, Paper tape; Double Layer tubigrip Wound Ostomy Routine Ordered: 11/08/2023 [employer] Work Phone: Comment on above: Ordered: 11/08/2023 Dressing Order: Calc ium alginate; Daily; 4x4 gauze ([place] Blue); Kerlex, Paper tape [facility] [employer] Work Phone: Comment on above: Ordered: 01/17/2024 Dressing Order: Calc ium alginate; Daily; 4x4 gauze, ABDs; Kerlex, Paper tape [facility] [employer] Work Phone: Comment on above: Ordered: 12/06/2023 Dressing Order: Calc ium alginate; Daily; 4x4 gauze, ABDs; Kerlex, Paper tape [facility] [employer] Work Phone: Comment on above: Ordered: 12/20/2023 Dressing Order: Calc ium alginate; Daily; ABDs; Kerlex, Paper tape [facility] [employer] Work Phone: Comment on above: Ordered: 11/29/2023 Dressing Order: Calc ium alginate; Daily; ABDs; Kerlex, Paper tape [facility] Work Phone: Comment on above: Ordered: 12/13/2023 Dressing Order: Calc ium alginate; Daily; ABDs; Kerlex, Paper tape [facility] Work Phone: Comment on above: Ordered: 01/31/2024 Dressing Order: Calc ium alginate; Daily; ABDs; Kerlex, Paper tape Dressing Order: Calcium alginate; Daily; ABDs; Kerlex, Paper tape Wound Ostomy Routine 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) Peripheral venous insufficiency [I87.2] Ordered: 03/27/2024 [employer] Work Phone: Comment on above: Ordered: 03/27/2024 Dressing Order: Calc ium alginate; Weekly; (profore lite) [facility] Work Phone: Comment on above: Ordered: 11/15/2023 Dressing Order: Calc ium alginate; Weekly; 4x4 gauze; Multilayer compression wrap 3 layers [facility] Work Phone: Comment on above: Ordered: 03/06/2024 Dressing Order: Calc ium alginate; Weekly; Kerlex, Silk tape; Multilayer compression wrap 3 layers, Unna boot Dressing Order: Calcium alginate; Weekly; Kerlex, Silk tape; Multilayer compression wrap 3 layers, Unna boot Wound Ostomy Routine Ordered: 10/11/2023 [facility] Work Phone: Comment on above: Ordered: 10/11/2023 Dressing Order: Calc ium alginate; Weekly; Multilayer compression wrap 3 layers (Profore lite) [employer] Work Phone: Comment on above: Ordered: 01/10/2024 Dressing Order: Calc ium alginate; Weekly; Multilayer compression wrap 3 layers (Profore lite) [facility] Work Phone: Comment on above: Ordered: 01/24/2024 Dressing Order: Calc ium alginate; Weekly; Multilayer compression wrap 3 layers (profore lite) [facility] Work Phone: Comment on above: Ordered: 02/07/2024 Dressing Order: Calc ium alginate; Weekly; Multilayer compression wrap 3 layers (Profore lite) [facility] Work Phone: Comment on above: Ordered: 02/28/2024 Dressing Order: Christa agen Ag, Calcium Alginate AG; Weekly; Hydralock pads (multiple sizes); Kerlex, Silk tape; Multilayer compression wrap 3 layers (cover toes), Unna boot Dressing Order: Collagen Ag, Calcium Alginate AG; Weekly; Hydralock pads (multiple sizes); Kerlex, Silk tape; Multilayer compression wrap 3 layers (cover toes), Unna boot Wound Ostomy Routine Ordered: 08/23/2023 [facility] Work Phone: Comment on above: Ordered: 08/23/2023 Dressing Order: Christa agen Ag, Calcium alginate; 4x4 gauze; Kerlex, Silk tape; Multilayer compression wrap 3 layers, Unna boot Dressing Order: Collagen Ag, Calcium alginate; 4x4 gauze; Kerlex, Silk tape; Multilayer compression wrap 3 layers, Unna boot Wound Ostomy Routine Ordered: 09/28/2023 [facility] Work Phone: Comment on above: Ordered: 09/28/2023 Dressing Order: Christa agen Ag, Calcium alginate; Hydralock pads (multiple sizes); Kerlex; Unna boot, Multilayer compression wrap 3 layers Dressing Order: Collagen Ag, Calcium alginate; Hydralock pads (multiple sizes); Kerlex; Unna boot, Multilayer compression wrap 3 layers Wound Ostomy Routine Ordered: 09/06/2023 [facility] Work Phone: Comment on above: Ordered: 09/06/2023 Dressing Order: Christa agen Ag, Calcium alginate; Weekly; 4x4 gauze, Hydralock pads (multiple sizes); Kerlex, Silk tape; Unna boot, Multilayer compression wrap 3 layers Dressing Order: Collagen Ag, Calcium alginate; Weekly; 4x4 gauze, Hydralock pads (multiple sizes); Kerlex, Silk tape; Unna boot, Multilayer compression wrap 3 layers Wound Ostomy Routine Ordered: 09/13/2023 [facility] [employer] Work Phone: Comment on above: Ordered: 09/13/2023 Dressing Order: Christa agen Ag, Calcium alginate; Weekly; 4x4 gauze; Kerlex, Silk tape; Multilayer compression wrap 3 layers, Unna boot Dressing Order: Collagen Ag, Calcium alginate; Weekly; 4x4 gauze; Kerlex, Silk tape; Multilayer compression wrap 3 layers, Unna boot Wound Ostomy Routine Ordered: 08/30/2023 [facility] [employer] Work Phone: Comment on above: Ordered: 08/30/2023 Dressing Order: Christa agen Ag, Calcium alginate; Weekly; 4x4 gauze; Kerlex; Unna boot, Multilayer compression wrap 3 layers Dressing Order: Collagen Ag, Calcium alginate; Weekly; 4x4 gauze; Kerlex; Unna boot, Multilayer compression wrap 3 layers Wound Ostomy Routine Ordered: 10/04/2023 [facility] Work Phone: Comment on above: Ordered: 10/04/2023 Dressing Order: Christa agen Ag; Weekly; (calcium alginate); Kerlex, Silk tape; Multilayer compression wrap 3 layers (cover toes), Unna boot Dressing Order: Collagen Ag; Weekly; (calcium alginate); Kerlex, Silk tape; Multilayer compression wrap 3 layers (cover toes), Unna boot Wound Ostomy Routine Ordered: 09/20/2023 [facility] Work Phone: Comment on above: Ordered: 09/20/2023 Dressing Order: Collagen, Calcium alginate; Daily; ABDs; Kerlex, Paper tape [facility] Work Phone: Comment on above: Ordered: 02/14/2024 Dressing Order: Hydrafera blue/Dermablue; Daily; Sorbex; Kerlex, Paper tape; Single layer tubigrip [facility] Work Phone: Comment on above: Ordered: 11/01/2023 Dressing Order: Hydrafera blue/Dermablue; Weekly; Sorbex, 4x4 gauze; Kerlex, Paper tape; Unna boot, Multilayer compression wrap 3 layers Dressing Order: Hydrafera blue/Dermablue; Weekly; Sorbex, 4x4 gauze; Kerlex, Paper tape; Unna boot, Multilayer compression wrap 3 layers Wound Ostomy Routine Ordered: 10/25/2023 [facility] Work Phone: Comment on above: Ordered: 10/25/2023 Dressing Order: Soap & water; Calcium alginate; Every other day; Sorbex; Kerlex, Paper tape; [employer] Dressing Order: Soap & water; Calcium alginate; Every other day; Sorbex; Kerlex, Paper tape; [employer] Wound Ostomy Routine Ordered: 10/18/2023 [facility] Work Phone: Comment on above: Ordered: 10/18/2023 Dressing Order: Week ly; (Profore lite) [employer] Work Phone: Comment on above: Ordered: 01/03/2024 OUTSIDE PROCEDURE SCAN OUTSIDE P ROCEDURE SCAN Procedures Ordered: 10/24/2022 [facility] Comment on above: Ordered: 10/24/2022 [facility] c Immunizations Immunization Date Immunization Notes Care Provider Fa [facility] 01-17-2024 COVID-19 vaccine, ag e 12+ yr (PFIZER-BIONTECH COMIRNATY) Chhaya Saldana MD Work Phone: [facility] 01-09-2024 influenza, seasonal, injectable, preservative free Chhaya Saldana MD Work Phone: [facility] 06-09-2023 respiratory syncytia l virus (RSV) vaccine, bivalent (ABRYSVO) Chhaya Saldana MD Work Phone: [facility] 03-13-2023 COVID-19 vaccine, ag e 12+ yr (PFIZER-BIONTECH COMIRNATY) Chhaya Saldana MD Work Phone: [facility] 01-09-2023 influenza, injectabl e, quadrivalent, preservative free Chhaya Saldana MD Work Phone: [facility] 08-05-2022 pneumococcal conjuga te (PCV20) vaccine, 20 valent (PREVNAR 20) Chhaya Saldana MD Work Phone: [facility] 01-14-2022 COVID-19 vaccine, ag e 12+ yr, bivalent (PFIZER-BIONTECH) Chhaya Saldana MD Work Phone: [facility] 01-14-2022 influenza, injectabl e, quadrivalent, preservative free Chhaya Saldana MD Work Phone: [facility] 01-28-2021 COVID-19 original vaccine, age 12+ yr, monovalent (PFIZER-BIONTECH - PURPLE TOP) Chhaya Saldana MD Work Phone: [facility] 01-12-2021 influenza, injectabl e, quadrivalent, preservative free Chhaya Saldana MD Work Phone: [facility] 06-26-2020 diphtheria, tetanus toxoids and acellular pertussis vaccine, unspecified formulation Loki Hernandez [employer] Work Phone: 06-26-2020 tetanus toxoid, redu joelle diphtheria toxoid, and acellular pertussis vaccine, adsorbed Loki CORTES 05-06-2020 COVID-19 original vaccine, age 12+ yr, monovalent (PFIZER-BIONTECH - PURPLE TOP) Chhaya Saldana MD Work Phone: [facility] 04-15-2020 COVID-19 original vaccine, age 12+ yr, monovalent (PFIZER-BIONTECH - PURPLE TOP) Chhaya Saldana MD Work Phone: [facility] [place] 03-11-2015 influenza, injectabl e, quadrivalent, preservative free Chhaya Saldana MD Work Phone: [facility] [place] 07-10-2014 pneumococcal polysaccharide vaccine, 23 valent Margaret Coyner [facility] 02-04-2014 influenza, seasonal, injectable, preservative free Chhaya Saldana MD Work Phone: [facility] Payers Date Payer Category Payer Self-pay [id number] 2021 Medicaid [facility] MEDICA[facility] ONLY [id number] 2021 Medicare [id number] 2021 Medicare (Managed Care) [facility] MEDICARE [id number] 2021 Medicare [facility]MO [facility] [id number] 2021 Unknown [facility] [employer] [employer] EXCHANGE [id number] 2021-Present [address] [facility] [place] [address] Exchange Plan [id number] 2021 Medicare [id number] 2021 Unknown [id number] 2021 Medicaid [id number] 2014 Private Health Insurance ARIN NEAL [address] [id number] 2014-Present Indemnity [id number] 2014 Medicare [id number] 1985 Medicare MEDICARE MEDICAR E A AND B [id number] 1985-Present [place] Medicare [id number] Unknown [id number] 462 Unknown [id number] 462 Unknown [id number] 462 Unknown [id number] 462 Unknown [id number] 462 Unknown [id number] 462 Unknown [id number] 462 Unknown [id number] 462 Unknown [id number] 462 Unknown [id number] 462 Unknown [id number] 462 Social History Date Type Detail Facility Start: 04-05-2019 End: 02-19-2020 Tobacco smoking status NHIS Unknown if ever smoked [employer] [facility] Start: 02-19-2020 End: 07-08-2024 Tobacco use and exposure [facility] Start: 02-19-2020 End: 04-09-2024 Alcohol intake Lifetime non-drinker (finding) [place], [place] Start: 02-19-2020 End: 06-08-2022 History SDOH Alcohol Frequency 1 [place], [place] Start: 1960 Sex Assigned At Not on file [employer] Phone: Start: 05-28-2022 End: 11-17-2022 Exposure to SARS-CoV-2 (event) Not sure [facility] Start: 01-21-2020 End: 07-08-2024 Tobacco smoking status NHIS Former smoker [facility] End: 04-10-1982 History of tobacco use Current smoker [facility] [place] Start: 01-21-2020 End: 07-08-2024 Alcohol intake Current non-drinker of alcohol (finding) [facility] Start: 1960 Sex Assigned At Male [facility] Start: 06-08-2022 Tobacco smoking stat us WVIS Never smoked tobacco [facility] Start: 06-08-2022 History SDOH Alcohol Std Drinks 0 [facility] [employer] Start: 06-08-2022 History SDOH IPV Fear 2 [facility] [employer] End: 04-10-1982 History of tobacco use Cigarette [...] hav e a drink containing alcohol? Never [employer] How many standard dr inks containing alcohol do you have on a typical day? Patient does not drink [employer] Start: 11-08-2021 End: 07-26-2024 Sex Male (finding) [facility] Functional Status Date Assessment Result Facility 01-27-2020 Are you deaf, or do you have serious difficulty hearing No 01/27/2020 11:07 AM Alicia Joseph, SO No [facility] 01-27-2020 Are you blind, or do you have serious difficulty seeing, even when wearing glasses No 01/27/2020 11:07 AM Alicia Joseph, SO No [facility] 01-27-2020 Do you have serious difficulty walking or climbing stairs No 01/27/2020 11:07 AM Alicia Joseph, SO No [facility] 01-27-2020 Do you have difficul ty dressing or bathing No 01/27/2020 11:07 AM Alicia Joseph, SO No [facility] 01-27-2020 Because of a physica l, mental, or emotional condition, do you have difficulty doing errands alone such as visiting a physician's office or shopping No 01/27/2020 11:07 AM Alicia Joseph, SO No [facility] Mental Status Date Assessment Result Facility 01-27-2020 Because of a physica l, mental, or emotional condition, do you have serious difficulty concentrating, remembering, or making decisions No 01/27/2020 11:07 AM Alicia Joseph, SO No [facility] Clinical Notes 06-07-2022 to 01-13-2025 Patient InstructionsChhaya Saldana MD - 07/08/2024 11:33 AM Cristi Arreola DPM - 04/09/2024 2:15 PM Kurt Radford RN - 04/09/2024 2:15 PM ESTPatient InstructionsPatient Instructions Note Date & Type Note Facility 01-13-2025 Note HNO ID: [id number] Author: CHHAYA SALDANA MD Service: ? Author Type: Physician Type: Progress Notes Filed: 01/13/2025 16:53 Note Text: FOLLOW UP NOTE Subjective Moises Madrid is a 64 year old male who presents for follow [...] of psychiatric medications. HPI Current Issues - Off amitriptyline and Aimovig since the last visit, no changes to headache - Headache is constant - Headache currently more holocranial, throbbing / pulsing pain - Has phobias, generally not nauseous - Not positional - In interim was started on Ubrelvy PRN for headache, not familiar to him not sure if helpful - Tends to be up late, trouble sleeping Current neuropsychiatric medications (with listed indications on med list): - Abilify 10 mg daily (MDD) - Depakote 250 mg TID (bipolar disorder with psychotic features) - Venlafaxine XR 75 mg BID (depression) - Gabapentin 400 mg Tid (pain) - Melatonin 10 mg QHS (sleep) - Jacksonville 5 mg q8hrs PRN pain (takes around 3 times a day for the head, also has pain in the right foot) Current Outpatient Medications Medication Sig Dispense Refill UBRELVY 50 mg tablet Take 50 mg by mouth once daily as needed for migraine headache (see administration instructions). albuterol HFA (PROVENTIL HFA) 90 mcg/actuation inhaler Inhale 2 Puffs as instructed every 6 hours as needed for wheezing/shortness of breath. vitamin B complex (B-COMPLEX ORAL) Take 10 [...] Take 2 tablets by mouth once daily. cloNIDine HCl (CATAPRES) 0.1 mg tablet Take [...] Take 10 mg by mouth once daily. venlafaxine (EFFEXOR) [...] 1 tablet by mouth twice daily. 0 ondansetron (ZOFRAN) 4 mg tablet Take 4 mg by mouth as needed for nausea/vomiting. No current facility-administered medications for this visit. Objective OBJECTIVE 01/13/25 1128 BP: 91/64 BP Site: Right Arm BP Position: Sitting BP Cuff Size: Large Adult Pulse: 74 SpO2: 94% General: General Appearance: In wheelchair in NAD Head: Normocephalic Neck: Supple (more content not included)... [facility] 07-08-2024 Instructions Chhaya Saldana MD - 07/08/2024 12:25 PM EDT Stop aimovig. Talk with psychiatry about increasing amitriptyline if possible with other medications. documented in this encounter [facility] 07-08-2024 Note HNO ID: [id number] Author: CHHAYA SALDANA MD Service: ? Author [...] (sleep) - Aimovig 140 mg monthly - [place] 5 mg q8hrs PRN pain (takes around [...] 10 mg t (more content not included)... 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, Nursing Homes/Clarify Orders 10 [] Routine [...] reopens or a new wound appears at [phone] documented in this encounter [facility] 03-27-2024 History of Present illness Narrative Images from the original note were not included. [facility] Wound Care Progress Note CHIEF COMPLAINT: [...] Wound Surface Area (cm^2) 0 cm^2 03/27/24 151 Wound Depth (cm) 0 cm 03/27/24 151 Wound Volume (cm^3) 0 cm^3 03/27/24 151 Wound Healing % 100 03/27/24 1516 Drainage Description Serosanguineous 03/27/24 1516 Odor None 03/27/24 151 Drainage Amount Scant [...] Test Results/Process Orders 10 [] Staff telephones WOUND CARE TECHNICIAN, Nursing Homes/Clarify Orders 10 [x] Routine Transfer [...] from the original note were not included. [facility] Wound Care Progress Note CHIEF COMPLAINT: [...] 1516 Wound Volume (cm^3) 0 cm^3 03/27/24 151 Wound Healing % 100 03/27/24 1516 Drainage [...] Test Results/Process Orders 10 [] Staff telephones WOUND CARE TECHNICIAN, Nursing Homes/Clarify Orders 10 [x] Routine Transfer [...] instructions please contact the wound center at [phone] If after regular business hours, please call [...] help with wound healing Nursing Care Facility: [facility] Bilateral legs resolved-Facility closed week - Facility [...] instructions please contact the wound center at [phone] If after regular business hours, please call [...] help with wound healing Nursing Care Facility: [facility] Bilateral legs resolved-Facility closed week - Facility [...] accepted [facility] 03-27-2024 Note [facility] Wound Care Progress Note CHIEF COMPLAINT: [...] with plan. Please see attached Discharge Instructions [facility] 03-20-2024 Note [facility] Wound Care Progress Note CHIEF COMPLAINT: [...] with plan. Please see attached Discharge Instructions [facility] 03-13-2024 Hospital Discharge instructions Giuliana Radford RN - 03/13/2024 2:30 PM EST Return Appointment in: 1 week - Should you experience any significant changes in your wound(s) or have any questions regarding your home care instructions please contact the wound center at [phone] If after regular business hours, please call [...] help with wound healing Nursing Care Facility: [facility] Wound Treatment to R toes- Daily Cleanse [...] encounter [facility] 03-13-2024 Note [facility] Wound Care Progress Note CHIEF COMPLAINT: [...] with plan. Please see attached Discharge Instructions [facility] 03-06-2024 Hospital Discharge instructions Giuliana Radford RN - 03/06/2024 10:30 AM EST Return Appointment in: 1 week - Should you experience any significant changes in your wound(s) or have any questions regarding your home care instructions please contact the wound center at [phone] If after regular business hours, please call [...] help with wound healing Nursing Care Facility: [facility] Wound Treatment to R toes- Daily Cleanse [...] encounter [facility] 03-06-2024 Note [facility] Wound Care Progress Note CHIEF COMPLAINT: [...] with plan. 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 [facility] Wound Care Progress Note CHIEF COMPLAINT: [...] Right;Dorsal (Active) Wound Image 02/28/24956 Site Assessment Granulation;[place];Sloughing 02/28/24956 Carine-Wound Assessment Dry 02/28/24956 Wound Length (cm) 1.5 cm 02/28/24956 Wound Width (cm) 3 cm 02/28/24956 Wound Surface Area (cm^2) 4.5 cm^2 02/28/24956 Wound Depth (cm) 0.1 cm 02/28/24956 Wound Volume (cm^3) 0.45 cm^3 02/28/24956 Wound Healing % -257 02/28/24956 Drainage Description Serosanguineous;Yellow 02/28/24956 Odor None 02/28/24956 Drainage Amount Moderate 11/20/24 0957 Treatments Cleansed 02/28/24 0957 Primary Dressing [...] provider verified the correct patient, procedure, equipment, life support technician, and site/side marked as required. Debridement Details [...] instructions please contact the wound center at [phone] If after regular business hours, please call [...] lite applied for prevention. Nursing Care Facility: [facility] Wound Treatment to R toes- Daily Cleanse [...] encounter [facility] 02-28-2024 Note [facility] Wound Care Progress Note CHIEF COMPLAINT: [...] Toe - third Right;Dorsal (Active) Wound Image 02/28/24 956 Site Assessment Granulation;[place];Sloughing 02/28/24956 Carine-Wound Assessment Dry 02/28/24956 Wound Length [...] provider verified the correct patient, procedure, equipment, life support technician, and site/side marked as required. Debridement Details [...] with plan. Please see attached Discharge Instructions [facility] 02-21-2024 Hospital Discharge instructions Giuliana Radford RN - 02/21/2024 9:45 AM EST Return Appointment in: 1 week - Should you experience any significant changes in your wound(s) or have any questions regarding your home care instructions please contact the wound center at [phone] If after regular business hours, please call [...] lite applied for prevention. Nursing Care Facility: [facility] Wound Treatment to R toes- Daily Cleanse [...] encounter [facility] 02-21-2024 Note [facility] Wound Care Progress Note CHIEF COMPLAINT: [...] Right;Dorsal (Active) Wound Image 02/21/24948 Site Assessment [place];Granulation;Sloughing 02/21/24948 Carine-Wound Assessment Dry 02/21/24948 Wound Length [...] 02/21/24950 Drainage Description Serosanguineous 02/21/24950 Odor None 11/13/24 0951 Drainage Amount Moderate 11/13/24 0951 Treatments Cleansed 02/21/24 0951 Primary Dressing Calcium alginate 02/21/24 1000 Compression [...] with plan. Please see attached Discharge Instructions [facility] 02-18-2024 Emergency department Note Aamir bernard [...] of headache that was not relieved with [place] or Tylenol this evening at [facility]. [facility] facility sent him to the emergency department to be evaluated for his intractable headache. Nursing Notes were reviewed. Limitations to history: Altered mental status/confusion Outside historians: longterm facility REVIEW OF SYSTEMS Review of Systems [...] GERD (gastroesophageal reflux disease) Headache Hemiplegia (CMS/HCC) ([facility]) affecting right dominant side History of pancreatitis 10/28/2022 Hyperlipidemia Hypertension Hypokalemia Insomnia Intracranial injury (HCC) Lack of coordination Mixed receptive-expressive language disorder Muscle weakness Neuropathy Non-pressure chronic ulcer of other part of right foot with fat layer exposed (HCC) Pancreatic abscess 07/14/2022 Pancreatitis PVD (peripheral vascular disease) ([facility]) Reduced mobility Repeated falls SIRS (systemic inflammatory response syndrome) (HCC) TBI (traumatic brain injury) ([facility]) Venous insufficiency SURGICAL HISTORY Past Surgical [...] MG CAPSULE CHOLECALCIFEROL (VITAMIN D3) 1.25 MG (72519 UT) TABLET Take by mouth 1 (one) [...] Procedure Abnormality Status --------- ------ Comprehensive metabolic ...[[id number]] Abnormal Final result Please view results for [...] of headache that was not relieved with [place] or Tylenol this evening at the [facility] [...] AM PATIENT REFERRED TO: Demetrius Fenton [address] [facility] [address] DISCHARGE MEDICATIONS: New Prescriptions No medications [...] to year, oriented to month, according to usp he received norco and tylenol w no relief, per snf states he has constant headache documented in this encounter [facility] 02-18-2024 Emergency department Note Report called to [facility] at this time [facility] 02-18-2024 Hospital Discharge instructions Kaylee Bunch MD - 02/18/2024 2:49 AM EST Return if fever, focal numbness tingling weakness or as needed. The following attachments cannot be sent through Care Everywhere.Headache Discharge Instructions, Adult (Guyanese)documented in this encounter [facility] 02-18-2024 Emergency department Triage note Pt presents with headache, 12/18, from snf, unsure was if he was given any meds at sn[facility], alert and oriented x3, disoriented to year, oriented to month, according to usp he received norco and tylenol w no [...] of headache that was not relieved with [place] or Tylenol this evening at the [facility] facility. [facility] facility sent him to the emergency department to be evaluated for his intractable headache. Nursing Notes were reviewed. Limitations to history: Altered mental status/confusion Outside historians: longterm facility REVIEW OF SYSTEMS Review of Systems [...] MG CAPSULE CHOLECALCIFEROL (VITAMIN D3) 1.25 MG (75504 UT) TABLET Take by mouth 1 (one) [...] Procedure Abnormality Status --------- ------ Comprehensive metabolic ...[[id number]] Abnormal Final result Please view results for [...] of headache that was not relieved with [place] or Tylenol this evening at the [facility] [...] AM PATIENT REFERRED TO: Demetrius Fenton [address] [facility] [address] DISCHARGE MEDICATIONS: New Prescriptions No medications [...] Medicine Provider Kaylee Bunch MD 02/18/24 0250 [facility] 02-14-2024 History of Present illness Narrative Images from the original note were not included. [facility] Wound Care Progress Note CHIEF COMPLAINT: [...] Right;Dorsal (Active) Wound Image 02/14/24843 Site Assessment Granulation;[place] 02/14/24843 Carine-Wound Assessment Moist 02/14/24843 Wound Length [...] from the original note were not included. [facility] Wound Care Progress Note CHIEF COMPLAINT: [...] Right;Dorsal (Active) Wound Image 02/14/24843 Site Assessment Granulation;[place] 02/14/24843 Carine-Wound Assessment Moist 02/14/24843 Wound Length [...] instructions please contact the wound center at [phone] If after regular business hours, please call [...] lite applied for prevention. Nursing Care Facility: [facility] Wound Treatment to R toes- Daily Cleanse [...] instructions please contact the wound center at [phone] If after regular business hours, please call [...] lite applied for prevention. Nursing Care Facility: [facility] Wound Treatment to R toes- Daily Cleanse [...] accepted [facility] 02-14-2024 Note [facility] Wound Care Progress Note CHIEF COMPLAINT: [...] Right;Dorsal (Active) Wound Image 02/14/24843 Site Assessment Granulation;[place] 02/14/24843 Carine-Wound Assessment Moist 02/14/24843 Wound Length [...] Compression Multilayer compression wrap - 3 layers 11/06/24 0844 Dressing Status New dressing;Clean, dry & intact 02/14/24 0849 1. 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 Venous insufficiency (chronic) (peripheral) 3. Decreased mobility Pt ed, reassure Alginate to toes Continue MLCD on R Reviewed s/s infection Recheck one wk, sooner prn Pt agrees with plan. Please see attached Discharge Instructions [facility] 02-07-2024 History of Present illness Narrative Images from the original note were not included. [facility] Wound Care Progress Note CHIEF COMPLAINT: [...] Right;Dorsal (Active) Wound Image 02/07/24923 Site Assessment Granulation;[place];Swelling 02/07/24923 Carine-Wound Assessment Boggy;Moist 02/07/24923 Wound Length [...] instructions please contact the wound center at [phone] If after regular business hours, please call [...] Take antibiotic as directed Nursing Care Facility: [facility] Wound Treatment to R toes- Daily Cleanse [...] T [facility] 02-07-2024 Note [facility] Wound Care Progress Note CHIEF COMPLAINT: [...] Right;Dorsal (Active) Wound Image 02/07/24923 Site Assessment Granulation;[place];Swelling 02/07/24923 Carine-Wound Assessment Boggy;Moist 02/07/24923 Wound Length [...] with plan. Please see attached Discharge Instructions [facility] 01-31-2024 History of Present illness Narrative Images from the original note were not included. [facility] Wound Care Progress Note CHIEF COMPLAINT: [...] Right;Dorsal (Active) Wound Image 01/31/24817 Site Assessment Granulation;Pale;[place] 01/31/24817 Carine-Wound Assessment Moist 01/31/24817 Wound Length [...] 4x4 gauze 01/31/24817 Secured with Kerlex;Paper tape 10/23/24 0818 Compression Multilayer compression wrap - 3 layers [...] from the original note were not included. [facility] Wound Care Progress Note CHIEF COMPLAINT: [...] Right;Dorsal (Active) Wound Image 01/31/24817 Site Assessment Granulation;Pale;[place] 01/31/24817 Carine-Wound Assessment Moist 01/31/24817 Wound Length [...] instructions please contact the wound center at [phone] If after regular business hours, please call [...] Take antibiotic as directed Nursing Care Facility: [facility] Wound Treatment to R toes- Daily Cleanse [...] instructions please contact the wound center at [phone] If after regular business hours, please call [...] Take antibiotic as directed Nursing Care Facility: [facility] Wound Treatment to R toes- Daily Cleanse [...] accepted [facility] 01-31-2024 Note [facility] Wound Care Progress Note CHIEF COMPLAINT: [...] Right;Dorsal (Active) Wound Image 01/31/24817 Site Assessment Granulation;Pale;[place] 01/31/24817 Carine-Wound Assessment Moist 01/31/24817 Wound Length [...] with plan. Please see attached Discharge Instructions [facility] 01-24-2024 History of Present illness Narrative Images from the original note were not included. [facility] Wound Care Progress Note CHIEF COMPLAINT: [...] this encounter [facility] 01-24-2024 History of Present illness Narrative Images from the original note were not included. [facility] Wound Care Progress Note CHIEF COMPLAINT: [...] instructions please contact the wound center at [phone] If after regular business hours, please call [...] Take antibiotic as directed Nursing Care Facility: [facility] Wound Treatment to R toes- Daily Cleanse [...] instructions please contact the wound center at [phone] If after regular business hours, please call [...] Take antibiotic as directed Nursing Care Facility: [facility] Wound Treatment to R toes- Daily Cleanse [...] AM Actions taken: Flowsheet accepted, Follow-up modified T [facility] 01-24-2024 Note Encounter addended b y: Marycarmen Corona RN on: 01/30/2024 3:44 PM Actions taken: LDA properties accepted, Charge Capture section accepted [facility] 01-24-2024 Note Encounter addended b y: Sharla Beard LPN on: 01/24/2024 10:57 AM Actions taken: Flowsheet accepted, Follow-up modified [facility] 01-24-2024 Note [facility] Wound Care Progress Note CHIEF COMPLAINT: [...] with plan. Please see attached Discharge Instructions [facility] 01-17-2024 History of Present illness Narrative Images from the original note were not included. [facility] Wound Care Progress Note CHIEF COMPLAINT: [...] (Active) Wound Image 01/17/24 100 Site Assessment Granulation;[place] 01/17/24 1005 Carine-Wound Assessment Calloused;Moist 01/17/24 1005 Wound Length (cm) 1.4 cm 01/17/24 100 Wound Width (cm) 3.5 cm 01/17/24 1005 Wound Surface Area (cm^2) 4.9 cm^2 01/17/24 1005 Wound Depth (cm) 0.2 cm 01/17/24 100 Wound Volume (cm^3) 0.98 cm^3 01/17/24 100 Wound Healing % -678 01/17/24 100 Drainage Description Serosanguineous 01/17/24 100 Odor None 01/17/24 100 Drainage Amount Small 01/17/24 100 Treatments Cleansed 01/17/24 1005 Primary Dressing Alginate 01/17/24 1005 Secondary Dressing 4x4 gauze 01/17/24 1005 Secured with Kerlex;Silk tape 01/17/24 100 Compression [...] 1003 Wound Volume (cm^3) 0.198 cm^3 01/17/24 100 Wound Healing % 98 01/17/24 1003 Drainage [...] instructions please contact the wound center at [phone] If after regular business hours, please call [...] Take antibiotic as directed Nursing Care Facility: [facility] Wound Treatment to R toes- Daily Cleanse [...] encounter [facility] 01-17-2024 Note [facility] Wound Care Progress Note CHIEF COMPLAINT: [...] (Active) Wound Image 01/17/24 1005 Site Assessment Granulation;[place] 01/17/24 1005 Carine-Wound Assessment Calloused;Moist 01/17/24 1005 [...] or implied. Please see attached Discharge Instructions [facility] 01-10-2024 History of Present illness Narrative Images from the original note were not included. [facility] Wound Care Progress Note CHIEF COMPLAINT: [...] Right;Anterior (Active) Wound Image 01/10/24933 Site Assessment Granulation;[place] 01/10/24933 Carine-Wound Assessment Maceration 01/10/24933 Wound Length (cm) 1.5 cm 01/10/24933 Wound Width (cm) 3.5 cm 01/10/24933 Wound Surface Area (cm^2) 5.25 cm^2 01/10/24933 Wound Depth (cm) 0.2 cm 01/10/24933 Wound Volume (cm^3) 1.05 cm^3 01/10/24933 Wound Healing % -733 10/02/24 0934 Drainage Description Serosanguineous 01/10/24 0934 Odor None 01/10/2434 Drainage Amount Small 01/10/24 0934 Treatments Cleansed 01/10/2434 Primary Dressing Alginate 01/03/24 1600 Secondary Dressing 4x4 gauze 01/03/24 1600 Secured with Conforming kerlex;Silk tape 01/03/24 1600 Compression Double Layer tubigrip 11/08/23 1000 Dressing Status New dressing;Clean, dry & intact 12/27/23 1341 Wound/Incision 11/15/23 Venous Ulcer Leg Right;Lower;Anterior;Lateral (Active) Wound Image 01/10/24935 Site Assessment Dry;[place] 01/10/24935 Carine-Wound Assessment Dry 01/10/24935 Wound Length (cm) 0.7 cm 01/10/24935 Wound Width (cm) 0.5 cm 01/10/24935 Wound Surface Area (cm^2) 0.35 cm^2 01/10/24935 Wound Depth (cm) 0.1 cm 01/10/24935 Wound Volume (cm^3) 0.035 cm^3 01/10/24935 Wound Healing % 100 01/10/24935 Drainage Description Serosanguineous 01/10/24 0936 Odor None 01/10/24935 Drainage Amount Scant 01/10/24 0936 Treatments Cleansed 01/10/24 0936 Primary Dressing [...] instructions please contact the wound center at [phone] If after regular business hours, please call [...] Take antibiotic as directed Nursing Care Facility: [facility] Wound Treatment to R toes- Daily Cleanse [...] encounter [facility] 01-10-2024 Note [facility] Wound Care Progress Note CHIEF COMPLAINT: [...] Right;Anterior (Active) Wound Image 01/10/24933 Site Assessment Granulation;[place] 01/10/24933 Carine-Wound Assessment Maceration 01/10/24933 Wound Length [...] Right;Lower;Anterior;Lateral (Active) Wound Image 01/10/24935 Site Assessment Dry;[place] 01/10/24935 Carine-Wound Assessment Dry 01/10/24935 Wound Length [...] or implied. Please see attached Discharge Instructions [facility] 01-03-2024 History of Present illness Narrative Images from the original note were not included. [facility] Wound Care Progress Note CHIEF COMPLAINT: [...] (Active) Wound Image 01/03/24 1523 Site Assessment Granulation;Pale;[place];Sloughing 01/03/24 1523 Carine-Wound Assessment Maceration;Edema 01/03/24 1523 [...] Site Assessment Dry;[place] 01/03/24 1522 Carine-Wound Assessment [place] 01/03/24 1522 Wound Length (cm) 1.5 cm [...] instructions please contact the wound center at [phone] If after regular business hours, please call [...] Take antibiotic as directed Nursing Care Facility: [facility] Wound Treatment to R toes- Daily Cleanse [...] encounter [facility] 01-03-2024 Note [facility] Wound Care Progress Note CHIEF COMPLAINT: [...] (Active) Wound Image 01/03/24 1523 Site Assessment Granulation;Pale;[place];Sloughing 01/03/24 1523 Carine-Wound Assessment Maceration;Edema 01/03/24 1523 [...] Site Assessment Dry;[place] 01/03/24 1522 Carine-Wound Assessment [place] 01/03/24 1522 Wound Length (cm) 1.5 cm [...] or implied. Please see attached Discharge Instructions [facility] 12-27-2023 Hospital Discharge instructions Giuliana Radford RN - 12/27/2023 2:45 PM EDT Return Appointment in: 1 week - Should you experience any significant changes in your wound(s) or have any questions regarding your home care instructions please contact the wound center at [phone] If after regular business hours, please call [...] Take antibiotic as directed Nursing Care Facility: [facility] Wound Treatment to R toes- Daily Cleanse [...] encounter [facility] 12-27-2023 Note [facility] Wound Care Progress Note CHIEF COMPLAINT: [...] (Active) Wound Image 12/27/23 1341 Site Assessment Granulation;[place];Sloughing 12/27/23 1341 Carine-Wound Assessment Maceration;Moist 12/27/23 1341 [...] Ulcer Leg Right;Lower;Anterior;Lateral (Active) Wound Image 12/27/23 134 Site Assessment [place];Red 12/27/23 134 Carine-Wound Assessment Dry 12/27/23 1340 Wound Length (cm) 1.5 cm 12/27/23 1340 Wound Width (cm) 0.8 cm 12/27/23 1340 Wound Surface Area (cm^2) 1.2 cm^2 12/27/23 1340 Wound Depth (cm) 0.1 cm 12/27/23 1340 Wound Volume (cm^3) 0.12 cm^3 12/27/23 1340 Wound Healing % 99 12/27/23 1340 Drainage Description Serosanguineous 12/27/23 134 Odor None 12/27/23 134 Drainage Amount Scant 12/27/23 1340 Treatments Cleansed [...] or implied. Please see attached Discharge Instructions [facility] 12-20-2023 History of Present illness Narrative Images from the original note were not included. [facility] Wound Care Progress Note CHIEF COMPLAINT: [...] - third Right;Anterior (Active) Wound Image 12/20/23 110 Site Assessment Granulation;[place];Red 12/20/231107 Carine-Wound Assessment Moist ;Maceration 12/20/23 1108 Wound [...] instructions please contact the wound center at [phone] If after regular business hours, please call [...] Take antibiotic as directed Nursing Care Facility: [facility] Wound Treatment to R toes- Daily Cleanse [...] encounter [facility] 12-20-2023 Note [facility] Wound Care Progress Note CHIEF COMPLAINT: [...] Toe - third Right;Anterior (Active) Wound Image 12/20/231107 Site Assessment Granulation;[place];Red 12/20/238 Carine-Wound Assessment Moist ;Maceration 12/20/23 1108 Wound Length (cm) 1 cm 12/20/238 Wound Width (cm) 4.5 cm 12/20/23 1108 Wound Surface Area (cm^2) 4.5 cm^2 12/20/23 1108 Wound Depth (cm) 0.3 cm 12/20/238 Wound Volume (cm^3) 1.35 cm^3 12/20/23 1108 Wound Healing % -971 12/20/231107 Drainage Description Serosanguineous 12/20/238 Odor None 12/20/238 Drainage Amount Small 12/20/238 Treatments Cleansed;Lotion 12/20/238 Primary Dressing Calcium alginate 12/20/238 Secondary Dressing 4x4 gauze;ABD 12/20/238 Secured with Kerlex;Paper tape 12/20/238 Compression Double Layer tubigrip 11/08/23 1000 Dressing Status New dressing;Clean, dry & intact 12/20/238 Wound/Incision 11/15/23 Venous Ulcer Leg Right;Lower;Anterior;Lateral (Active) Wound Image 12/20/23 1108 Site Assessment Dry;Intact 12/20/238 Carine-Wound Assessment Dry 12/20/23 1108 Wound Length (cm) 0.1 cm 12/20/23 1108 Wound Width (cm) 0.1 cm 12/20/238 Wound Surface Area (cm^2) 0.01 cm^2 12/20/23 [...] or implied. Please see attached Discharge Instructions [facility] 12-13-2023 History of Present illness Narrative Images from the original note were not included. [facility] Wound Care Progress Note CHIEF COMPLAINT: [...] (Active) Wound Image 12/13/23 153 Site Assessment [place];Red;Sloughing 12/13/23 153 Carine-Wound Assessment Moist ;Maceration 12/13/23 [...] instructions please contact the wound center at [phone] If after regular business hours, please call [...] Take antibiotic as directed Nursing Care Facility: [facility] Wound Treatment to R toes- Daily [...] accepted [facility] 12-13-2023 Note [facility] Wound Care Progress Note CHIEF COMPLAINT: [...] (Active) Wound Image 12/13/23 1532 Site Assessment [place];Red;Sloughing 12/13/23 153 Carine-Wound Assessment Moist ;Maceration 12/13/23 [...] or implied. Please see attached Discharge Instructions [facility] 12-13-2023 Note Encounter addended b y: Renetta Majano LPN on: 12/13/2023 4:16 PM Actions taken: Flowsheet accepted [facility] 12-06-2023 History of Present illness Narrative Images from the original note were not included. [facility] Wound Care Progress Note CHIEF COMPLAINT: [...] (Active) Wound Image 12/06/23 1050 Site Assessment [place];Red;Sloughing 12/06/23 1050 Carine-Wound Assessment Moist ;Maceration 12/06/23 [...] (Active) Wound Image 12/06/23 1048 Site Assessment Dry;[place];Sloughing 12/06/23 1048 Carine-Wound Assessment Edema;[place] 12/06/23 1048 Wound Length (cm) 4 cm [...] instructions please contact the wound center at [phone] If after regular business hours, please call [...] Take antibiotic as directed Nursing Care Facility: [facility] Wound Treatment to R toes- Daily Cleanse [...] encounter [facility] 12-06-2023 Note [facility] Wound Care Progress Note CHIEF COMPLAINT: [...] (Active) Wound Image 12/06/23 1050 Site Assessment [place];Red;Sloughing 12/06/23 1050 Carine-Wound Assessment Moist ;Maceration 12/06/23 [...] (Active) Wound Image 12/06/23 1048 Site Assessment Dry;[place];Sloughing 12/06/23 1048 Carine-Wound Assessment Edema;[place] 12/06/23 1048 Wound Length (cm) 4 cm [...] or implied. Please see attached Discharge Instructions [facility] 11-29-2023 History of Present illness Narrative Images from the original note were not included. [facility] Wound Care Progress Note CHIEF COMPLAINT: [...] instructions please contact the wound center at [phone] If after regular business hours, please call [...] Take antibiotic as directed Nursing Care Facility: [facility] Wound Treatment to R toes- Daily Cleanse [...] encounter [facility] 11-29-2023 Note [facility] Wound Care Progress Note CHIEF COMPLAINT: [...] Image 11/29/23 105 Site Assessment Fragile;Red;Sloughing;Swelling 11/29/23 105 Carine-Wound Assessment Dry;Red 11/29/23 105 Wound Length (cm) 1 cm 11/29/23 1055 [...] Ulcer Leg Right;Lower;Anterior;Lateral (Active) Wound Image 11/29/23 105 Site Assessment Red;Sloughing;Dark edges 11/29/23 105 Carine-Wound [...] or implied. 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 [facility] Wound Care Progress Note CHIEF COMPLAINT: [...] provider verified the correct patient, procedure, equipment, life support technician, and site/side marked as required. Debridement Details [...] instructions please contact the wound center at [phone] If after regular business hours, please call [...] Take antibiotic as directed Nursing Care Facility: [facility] Wound Treatment to R toes- Daily Cleanse [...] encounter [facility] 11-22-2023 Note [facility] Wound Care Progress Note CHIEF COMPLAINT: [...] Dressing Status New dressing;Clean, dry & intact 08/09/24 1000 1. Non-pressure chronic ulcer of other [...] or implied. Please see attached Discharge Instructions [facility] 11-22-2023 Note [facility] Wound Care Progress Note CHIEF COMPLAINT: [...] 1113 Wound Volume (cm^3) 0.176 cm^3 11/22/23 111 Wound Healing % -40 11/22/23 1113 Drainage Description Serosanguineous 11/22/23 111 Odor Mild 11/22/23 1113 Drainage Amount Small 11/22/23 1113 Treatments Cleansed 11/22/23 1113 Primary Dressing Calcium alginate 11/17/23 1000 Secondary Dressing 4x4 gauze 11/17/23 1000 Secured with Conforming kerlex;Paper tape 11/17/23 1000 Compression Double Layer tubigrip 11/08/23 1000 Dressing Status Clean, dry & intact;New dressing 11/17/23 1000 Wound/Incision 11/15/23 Venous Ulcer Leg Right;Lower;Anterior;Lateral (Active) Wound Image 11/22/23 1110 Site Assessment Dry;Edema;Excoriated;Painful 11/22/23 111 Carine-Wound Assessment [...] Venous Ulcer Leg Right;Lower;Anterior;Lateral Performed by: Julissa Taylor, DO Authorized by: Julissa Taylor, DO Consent Consent obtained? verbal Consent given by: patient Risks discussed? procedural risks discussed Immediately prior to the procedure a time out was called and the performing provider verified the correct patient, procedure, equipment, life support technician, and site/side marked as required. Debridement Details [...] infection Reviewed ac (more content not included)... [facility] 11-17-2023 History of Present illness Narrative Images from the original note were not included. [facility] Wound Care [facility] Nurse Visit Note [...] Care Teams modified, Charge Capture section accepted [facility] 11-15-2023 History of Present illness Narrative Images from the original note were not included. [facility] Wound Care Progress Note CHIEF COMPLAINT: [...] Test Results/Process Orders 10 [] Staff telephones [facility], Nursing Homes/Clarify Orders 10 [] Routine [...] instructions please contact the wound center at [phone] If after regular business hours, please call [...] Take antibiotic as directed Nursing Care Facility: [facility] Wound Treatment to R toes- Daily Cleanse [...] encounter [facility] 11-15-2023 Note [facility] Wound Care Progress Note CHIEF COMPLAINT: [...] or implied. Please see attached Discharge Instructions [facility] 11-08-2023 History of Present illness Narrative Images from the original note were not included. [facility] Wound Care Progress Note CHIEF COMPLAINT: [...] Right;Anterior (Active) Wound Image 11/08/23945 Site Assessment Painful;Pale;[place];Red;Sloughing 11/08/23945 Carine-Wound Assessment Macerated;Moist ;Painful 11/08/23945 Wound Length (cm) 6 cm 11/08/23945 Wound Width (cm) 6.5 cm 11/08/23945 Wound Surface Area (cm^2) 39 cm^2 11/08/23945 Wound Depth (cm) 0.3 cm 11/08/23945 Wound Volume (cm^3) 11.7 cm^3 11/08/23945 Wound Healing % -9186 07/31/24 0946 Drainage Description Serosanguineous 11/08/23 0946 Odor Mild 11/08/23 0946 Drainage Amount Large [...] Test Results/Process Orders 10 [x] Staff telephones WOUND [facility]ARE TECHNICIAN, Nursing Homes/Clarify Orders 10 [x] Routine Transfer [...] from the original note were not included. [facility] Wound Care Progress Note CHIEF COMPLAINT: [...] Right;Anterior (Active) Wound Image 11/08/23945 Site Assessment Painful;Pale;[place];Red;Sloughing 11/08/23945 Carine-Wound Assessment Macerated;Moist ;Painful 11/08/23945 Wound Length (cm) 6 cm 07/31/24 0946 Wound Width (cm) 6.5 cm 11/08/23 0946 Wound Surface Area (cm^2) 39 cm^2 11/08/23945 Wound Depth (cm) 0.3 cm 11/08/23945 Wound Volume (cm^3) 11.7 cm^3 11/08/23 09 Wound Healing % -9186 11/08/23945 Drainage Description Serosanguineous 11/08/2346 Odor Mild 11/08/23945 Drainage Amount Large 11/08/2346 Treatments Cleansed 11/08/2346 Primary Dressing Alginate 11/08/23 1000 Secondary Dressing [...] Test Results/Process Orders 10 [x] Staff telephones [facility], Nursing Homes/Clarify Orders 10 [x] Routine [...] instructions please contact the wound center at [phone] If after regular business hours, please call [...] Take antibiotic as directed Nursing Care Facility: [facility] Wound Treatment to R toes and R leg: Daily Cleanse wound with mild soap and water and pat dry. Apply Calcium Alginate Apply dry dressing to cover the wound and secure with tape. Apply double tubi-industrial custodian On Am/off PM OK to shower if [...] instructions please contact the wound center at [phone] If after regular business hours, please call [...] Take antibiotic as directed Nursing Care Facility: [facility] Wound Treatment to R toes and R leg: Daily Cleanse wound with mild soap and water and pat dry. Apply Calcium Alginate Apply dry dressing to cover the wound and secure with tape. Apply double tubi-industrial custodian On Am/off PM OK to shower if wound dressing covered Apply Barrier Cream to bilateral buttocks and sacral area daily and PRN. documented in this encounter [facility] 11-08-2023 Miscellaneous Notes Encounter addended by: [...] AM Actions taken: Charge Capture section accepted [facility] 11-08-2023 Note [facility] Wound Care Progress Note CHIEF COMPLAINT: [...] Right;Anterior (Active) Wound Image 11/08/23945 Site Assessment Painful;Pale;[place];Red;Sloughing 11/08/23945 Carine-Wound Assessment Macerated;Moist ;Painful 11/08/23945 Wound [...] or implied. Please see attached Discharge Instructions [facility] 11-01-2023 History of Present illness Narrative Images from the original note were not included. [facility] Wound Care Progress Note CHIEF COMPLAINT: [...] (Active) Wound Image 11/01/23 08 Site Assessment Red;[place];Sloughing 11/01/23 08 Carine-Wound Assessment Macerated;Moist 11/01/23 08 Wound Length (cm) 5.4 cm 11/01/23 08 Wound Width (cm) 7.5 cm 11/01/23 08 Wound Surface Area (cm^2) 40.5 cm^2 11/01/23 08 Wound Depth (cm) 0.2 cm 11/01/23 08 Wound Volume (cm^3) 8.1 cm^3 11/01/23 08 Wound Healing % -6329 11/01/23 0856 Drainage Description Serosanguineous 11/01/23 0856 Odor Malodorous/putrid 11/01/23 08 Drainage Amount Copious 11/01/23 0856 Treatments Cleansed 11/01/23 0856 Primary Dressing Calcium alginate 10/18/23 1044 Secondary Dressing Sorbex 10/18/23 1044 Secured with Kerlex;Paper tape 10/18/23 1044 Compression Surepress 10/18/23 1044 Dressing Status New dressing;Clean, dry & intact 10/18/23 1044 Wound/Incision 10/25/23 Venous Ulcer Leg Distal;Right;Anterior (Active) Wound Image 11/01/23 0858 Site Assessment [place] 11/01/23 0858 Carine-Wound Assessment Dry 11/01/23 0858 [...] Amount Small 11/01/23 0858 Treatments Cleansed 11/01/23 08 1. Non-pressure chronic [...] instructions please contact the wound center at [phone] If after regular business hours, please call [...] Take antibiotic as directed Nursing Care Facility: [facility] Wound Treatment to R toes: Daily Cleanse wound with mild soap and water and pat dry. Apply Hydrafera blue Superabsorbent pad or sorbex Kerlix Apply dry dressing to cover the wound and secure with tape. OK to shower if wound dressing covered Wound Treatment to RLE: Weekly Genea Sandeep choie Apply Barrier Cream to bilateral buttocks and [...] accepted [facility] 11-01-2023 Note [facility] Wound Care Progress Note CHIEF COMPLAINT: [...] (Active) Wound Image 11/01/23 0856 Site Assessment Red;[place];Sloughing 11/01/23 0856 Carine-Wound Assessment Macerated;Moist 11/01/23 0856 [...] (Active) Wound Image 11/01/23 0858 Site Assessment [place] 11/01/23 0858 Carine-Wound Assessment Dry 11/01/23 0858 Wound Length (cm) 0.2 cm 11/01/23 0858 Wound Width (cm) 0.2 cm 11/01/23 08 Wound Surface Area (cm^2) 0.04 cm^2 11/01/23 08 Wound Depth (cm) 0.1 cm 11/01/23 08 Wound Volume (cm^3) 0.004 cm^3 11/01/23 08 Wound Healing % 96 11/01/23 0858 Drainage Description Serosanguineous 11/01/23 08 Odor None 11/01/23 08 Drainage Amount Small 11/01/23857 Treatments Cleansed 11/01/23857 1. Non-pressure chronic ulcer [...] or implied. 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 [facility] Wound Care Progress Note CHIEF COMPLAINT: [...] (Active) Wound Image 10/25/23 0855 Site Assessment Pale;[place];Sloughing 10/25/23 0855 Carine-Wound Assessment Maceration 10/25/23 0855 [...] (Active) Wound Image 10/25/23 0858 Site Assessment Pale;[place];Sloughing 10/25/23 0858 Carine-Wound Assessment Maceration 10/25/23 0858 [...] (Active) Wound Image 10/25/23 0857 Site Assessment Intact;[place] 10/25/23 0857 Carine-Wound Assessment Intact 10/25/23 0857 [...] provider verified the correct patient, procedure, equipment, life support technician, and site/side marked as required. Debridement Details [...] instructions please contact the wound center at [phone] If after regular business hours, please call [...] Take antibiotic as directed Nursing Care Facility: [facility] Wound Treatment: Wound: right toes and RLE Dressing Frequency: Dressing weekly Wound Cleansing: OK to shower if wound dressing covered Apply hydrafera blue Secondary Dressing: Superabsorbent pad or sorbex Secure With: Kerlex Roll gauze 4", Silk Tape 1" Compression: Unna deniseren profjanet lite Apply Barrier Cream to bilateral buttocks and sacral area daily and PRN. documented in this encounter [facility] 10-25-2023 Note [facility] Wound Care Progress Note CHIEF COMPLAINT: [...] (Active) Wound Image 10/25/23 08 Site Assessment Pale;[place];Sloughing 10/25/23 08 Carine-Wound Assessment Maceration 10/25/23 08 Wound Length (cm) 1.4 cm 10/25/23 08 Wound Width (cm) 2.3 cm 10/25/23 0855 Wound Surface Area (cm^2) 3.22 cm^2 10/25/23 08 Wound Depth (cm) 0.2 cm 10/25/23 08 Wound Volume (cm^3) 0.644 cm^3 10/25/23 0855 [...] (Active) Wound Image 10/25/23 0858 Site Assessment Pale;[place];Sloughing 10/25/23 0858 Carine-Wound Assessment Maceration 10/25/23 0858 [...] (Active) Wound Image 10/25/23 0857 Site Assessment Intact;[place] 10/25/23 0857 Carine-Wound Assessment Intact 10/25/23 0857 Wound Length (cm) 0.3 cm 10/25/23 0857 Wound Width (cm) 0.6 cm 10/25/23 0857 Wound Surface Area (cm^2) 0.18 cm^2 10/25/23 08 Wound Depth (cm) 0.1 cm 10/25/23 08 Wound Volume (cm^3) 0.018 cm^3 10/25/23 0857 [...] Bleeding 10/25/23 0902 Carine-Wound Assessment Dry 10/25/23 09 Wound Length (cm) 0.9 cm 10/25/23 09 Wound Width (cm) 1.2 cm 10/25/23 09 Wound Surface Area (cm^2) 1.08 cm^2 10/25/23 0902 Wound Depth (cm) 0.1 cm 10/25/23 0902 Wound Volume (cm^3) 0.108 cm^3 10/25/23 0902 Drainage Description Serosanguineous 10/25/23 0902 Odor None 10/25/23 09 Drainage Amount Scant 10/25/23 0902 Treatments Cleansed [...] provider verified the correct patient, procedure, equipment, life support technician, and site/side marked as required. Debridement Details Performed by (more content not included)... [facility] 10-18-2023 History of Present illness Narrative Images from the original note were not included. [facility] Wound Care Progress Note CHIEF COMPLAINT: [...] (Active) Wound Image 10/18/23 1046 Site Assessment Pale;[place];Sloughing;Maceration 10/18/23 1046 Carine-Wound Assessment Maceration 10/18/23 1046 [...] (Active) Wound Image 10/18/23 1044 Site Assessment Maceration;Pale;[place];Sloughing 10/18/23 1044 Carine-Wound Assessment Macerated;Pale 10/18/23 1044 [...] (Active) Wound Image 10/18/23 1049 Site Assessment Maceration;[place] 10/18/23 1049 Carine-Wound Assessment Moist 10/18/23 1049 [...] from the original note were not included. [facility] Wound Care Progress Note CHIEF COMPLAINT: [...] (Active) Wound Image 10/18/23 1046 Site Assessment Pale;[place];Sloughing;Maceration 10/18/23 1046 Carine-Wound Assessment Maceration 10/18/23 1046 [...] (Active) Wound Image 10/18/23 1044 Site Assessment Maceration;Pale;[place];Sloughing 10/18/23 1044 Carine-Wound Assessment Macerated;Pale 10/18/23 1044 [...] (Active) Wound Image 10/18/23 1049 Site Assessment Maceration;[place] 10/18/23 1049 Carine-Wound Assessment Moist 10/18/23 1049 [...] instructions please contact the wound center at [phone] If after regular business hours, please call [...] Take antibiotic as directed Nursing Care Facility: [facility] Wound Treatment: Wound: right toes Dressing Frequency: [...] instructions please contact the wound center at [phone] If after regular business hours, please call [...] Take antibiotic as directed Nursing Care Facility: [facility] Wound Treatment: Wound: right toes Dressing Frequency: [...] accepted [facility] 10-18-2023 Note [facility] Wound Care Progress Note CHIEF COMPLAINT: [...] (Active) Wound Image 10/18/23 1046 Site Assessment Pale;[place];Sloughing;Maceration 10/18/23 1046 Carine-Wound Assessment Maceration 10/18/23 1046 [...] (Active) Wound Image 10/18/23 1044 Site Assessment Maceration;Pale;[place];Sloughing 10/18/23 104 Carine-Wound Assessment Macerated;Pale 10/18/23 1044 [...] (Active) Wound Image 10/18/23 1049 Site Assessment Maceration;[place] 10/18/23 1049 Carine-Wound Assessment Moist 10/18/23 1049 [...] water Order Specifi (more content not included)... 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 [facility] Wound Care Progress Note CHIEF COMPLAINT: [...] (Active) Wound Image 10/04/23 1407 Site Assessment Granulation;Painful;Pale;[place];Slou ghing 10/11/23 0909 Carine-Wound Assessment Maceration 10/11/23 [...] Wound Image 10/11/23 09 Site Assessment Dark edges;Painful;[place];Sloughing 10/11/23 09 Carine-Wound Assessment Moist ;Dark edges 10/11/23 0913 Wound Length (cm) 0.6 cm 10/11/23912 Wound Width (cm) 0.5 cm 10/11/23912 Wound Surface Area (cm^2) 0.3 cm^2 10/11/23912 Wound Depth (cm) 0.1 cm 10/11/23912 Wound Volume (cm^3) 0.03 cm^3 10/11/23912 Wound Healing % 76 10/11/23 09 Drainage Description Serosanguineous;[place] 10/11/23 09 Odor None 10/11/23912 Drainage Amount Moderate 10/11/23 09 Treatments Cleansed 10/11/23 0913 Primary Dressing Alginate [...] provider verified the correct patient, procedure, equipment, life support technician, and site/side marked as required. Debridement Details [...] provider verified the correct patient, procedure, equipment, life support technician, and site/side marked as required. Debridement Details [...] instructions please contact the wound center at [phone] If after regular business hours, please call [...] help with wound healing Nursing Care Facility: [facility] Wound Treatment: Wound: right toes Dressing Frequency: Keep dressing in place all week Wound Cleansing: May shower with protection - Protect wound and dressing with water repellant cover/cast cover (e.g., large plastic bag) which can be obtained at [facility] and may take shower. Hold Collagen AG for now Secondary Dressing: Calcium Alginate 4x4 Secure With: Kerlex Roll gauze 4", Silk Tape 1" Compression: Unna boot & multilayer compression wrap - 3 layers (cover toes) Apply Barrier Cream to bilateral buttocks and sacral area daily and PRN. documented in this encounter [facility] 10-11-2023 Note [facility] Wound Care Progress Note CHIEF COMPLAINT: [...] (Active) Wound Image 10/04/23 1407 Site Assessment Granulation;Painful;Pale;[place];Slou ghing 10/11/23 0909 Carine-Wound Assessment Maceration 10/11/23 09 Wound Length (cm) 1.5 cm 10/11/23 09 Wound Width (cm) 1.7 cm 10/11/23908 Wound Surface Area (cm^2) 2.55 cm^2 10/11/23908 Wound Depth (cm) 0.1 cm 10/11/23908 Wound Volume (cm^3) 0.255 cm^3 10/11/23 09 Wound Healing % 36 10/11/23908 Drainage Description Serosanguineous;[place] 10/11/23 09 Odor None 10/11/23908 Drainage Amount Moderate 10/11/23 09 Treatments Cleansed 10/11/23 09 Primary Dressing Alginate 10/11/23 1000 Secondary Dressing 4x4 gauze 10/11/23 1000 Secured with Kerlex;Silk tape 10/11/23 1000 Compression Unna boot;Multilayer compression wrap - 3 layers 10/11/23 1000 Dressing Status New dressing;Clean, dry & intact 10/04/23 1407 Wound/Incision 08/23/23 Venous Ulcer Toe - third Right (Active) Wound Image 10/11/23 09 Site Assessment Dark edges;Painful;[place];Sloughing 10/11/23912 Carine-Wound Assessment Moist ;Dark edges 10/11/23912 Wound Length (cm) 0.6 cm 10/11/23912 Wound Width (cm) 0.5 cm 10/11/23912 Wound Surface Area (cm^2) 0.3 cm^2 10/11/23912 Wound Depth (cm) 0.1 cm 10/11/23912 Wound Volume (cm^3) 0.03 cm^3 10/11/2313 Wound Healing % 76 10/11/23912 Drainage Description Serosanguineous;[place] 10/11/23912 Odor None 10/11/23 0913 Drainage Amount Moderate [...] provider verified the correct patient, procedure, equipment, life support technician, and site/side marked as required. Debridement Details [...] provider verified the correct patient, procedure, equipment, life support technician, and site/side marked as required. Debridement Details Performed by: physician Debridement type: surgical Level of debridement: subcutaneous tissue Pain control: lidocaine 2% Pain control administration type: topical Pre-debridement measurements Length (cm): 0. (more content not included)... 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 [facility] Wound Care Progress Note CHIEF COMPLAINT: [...] (Active) Wound Image 10/04/23 1407 Site Assessment Painful;Pale;[place];Sloughing 10/04/23 1407 Carine-Wound Assessment Macerated 10/04/23 1407 [...] (Active) Wound Image 10/04/23 1410 Site Assessment [place];Pale 10/04/23 1410 Carine-Wound Assessment Macerated 10/04/23 1410 [...] 10/04/23 1410 Secondary Dressing 4x4 gauze 10/04/23 141 Secured with Kerlex;Paper tape 10/04/23 1410 Compression [...] provider verified the correct patient, procedure, equipment, life support technician, and site/side marked as required. Debridement Details [...] provider verified the correct patient, procedure, equipment, life support technician, and site/side marked as required. Debridement Details [...] instructions please contact the wound center at [phone] If after regular business hours, please call [...] help with wound healing Nursing Care Facility: [facility] Wound Treatment: Wound: right toes Dressing Frequency: Keep dressing in place all week Wound Cleansing: May shower with protection - Protect wound and dressing with water repellant cover/cast cover (e.g., large plastic bag) which can be obtained at [facility] and may take shower. Primary Dressing: Collagen Ag 2x2 Secondary Dressing: Calcium Alginate 4x4 Secure With: Kerlex Roll gauze 4", Silk Tape 1" Compression: Unna boot & multilayer compression wrap - 3 layers (cover toes) Apply Barrier Cream to bilateral buttocks and sacral area daily and PRN. documented in this encounter [facility] 10-04-2023 Note [facility] Wound Care Progress Note CHIEF COMPLAINT: [...] (Active) Wound Image 10/04/23 140 Site Assessment Painful;Pale;[place];Sloughing 10/04/23 140 Carine-Wound Assessment Macerated 10/04/23 140 Wound Length (cm) 1.5 cm 10/04/23 140 Wound Width (cm) 1.5 cm 10/04/23 140 Wound Surface Area (cm^2) 2.25 cm^2 10/04/23 140 Wound Depth (cm) 0.2 cm 10/04/231406 Wound Volume (cm^3) 0.45 cm^3 10/04/231406 Wound Healing % -13 10/04/23 140 Drainage Description Serosanguineous;[place] 10/04/23 140 Odor None 10/04/231406 Drainage Amount Moderate 10/04/231406 Treatments Cleansed 10/04/231406 Primary Dressing Collagen Ag;Calcium alginate 10/04/231406 Secondary Dressing 4x4 gauze 10/04/23 140 Secured with Kerlex;Paper tape 10/04/231406 Compression Unna boot;Multilayer compression wrap - 3 layers 10/04/231406 Dressing Status New dressing;Clean, dry & intact 10/04/231406 Wound/Incision 08/23/23 Venous Ulcer Toe - third Right (Active) Wound Image 10/04/23 141 Site Assessment [place];Pale 10/04/23 141 Carine-Wound Assessment Macerated 10/04/23 141 Wound Length (cm) 0.5 cm 10/04/23 141 Wound Width (cm) 0.3 cm 10/04/23 141 Wound Surface Area (cm^2) 0.15 cm^2 10/04/23 141 Wound Depth (cm) 0.2 cm 10/04/23 141 [...] provider verified the correct patient, procedure, equipment, life support technician, and site/side marked as required. Debridement Details [...] provider verified the correct patient, procedure, equipment, life support technician, and site/side marked as required. Debridement Details Performed by: physician Debridement type: surgical Level of debridement: subcutaneous tissue Pain control: lidocaine 2% Pain control administration type: topical Pre-debridem (more content not included)... [facility] 09-27-2023 History of Present illness Narrative Images from the original note were not included. [facility] Wound Care Progress Note CHIEF COMPLAINT: [...] (Active) Wound Image 09/27/23 1322 Site Assessment Maceration;Pale;[place];Sloughing;[place] nful 09/27/23 1322 Carine-Wound Assessment Macerated 09/27/23 [...] (Active) Wound Image 09/27/23 132 Site Assessment [place];Pale 09/27/23 132 Carine-Wound Assessment Macerated 09/27/23 1320 [...] [facility] Discharge instructions Erika Canseco Warren - 09/27/2023 1:15 PM EDT Return Appointment in: 1 week - Should you experience any significant changes in your wound(s) or have any questions regarding your home care instructions please contact the wound center at [phone] If after regular business hours, please call [...] help with wound healing Nursing Care Facility: [facility] Wound Treatment: Wound: right toes Dressing Frequency: Keep dressing in place all week Wound Cleansing: May shower with protection - Protect wound and dressing with water repellant cover/cast cover (e.g., large plastic bag) which can be obtained at [facility] and may take shower. Primary Dressing: Collagen [...] instructions please contact the wound center at [phone] If after regular business hours, please call [...] help with wound healing Nursing Care Facility: [facility] Wound Treatment: Wound: right toes Dressing Frequency: Keep dressing in place all week Wound Cleansing: May shower with protection - Protect wound and dressing with water repellant cover/cast cover (e.g., large plastic bag) which can be obtained at [facility] and may take shower. Primary Dressing: Collagen [...] PM Actions taken: Charge Capture section accepted [facility] 09-27-2023 Note [facility] Wound Care Progress Note CHIEF COMPLAINT: [...] (Active) Wound Image 09/27/23 132 Site Assessment Maceration;Pale;[place];Sloughing;[place] nful 09/27/23 132 Carine-Wound Assessment Macerated 09/27/23 [...] (Active) Wound Image 09/27/23 132 Site Assessment [place];Pale 09/27/23 1320 Carine-Wound Assessment Macerated 09/27/23 1320 [...] 1320 Primary Dressing Collagen Ag;Calcium alginate 09/27/23 132 [...] Unna boot Please see attached Discharge Instructions [facility] 09-20-2023 History of Present illness Narrative Images from the original note were not included. [facility] Wound Care Progress Note CHIEF COMPLAINT: [...] (Active) Wound Image 09/20/23 1447 Site Assessment Maceration;Pale;[place];Sloughing 09/20/23 144 Carine-Wound Assessment Macerated 09/20/23 1447 [...] (Active) Wound Image 09/20/23 1445 Site Assessment Pale;[place];Maceration 09/20/23 1445 Carine-Wound Assessment Maceration 09/20/23 1445 [...] instructions please contact the wound center at [phone] If after regular business hours, please call [...] help with wound healing Nursing Care Facility: [facility] Wound Treatment: Wound: right toes Dressing Frequency: Keep dressing in place all week Wound Cleansing: May shower with protection - Protect wound and dressing with water repellant cover/cast cover (e.g., large plastic bag) which can be obtained at [facility] and may take shower. Primary Dressing: Collagen Ag 2x2 Secondary Dressing: Calcium Alginate 4x4 Secure With: Kerlex Roll gauze 4", Silk Tape 1" Compression: Unna boot & multilayer compression wrap - 3 layers (cover toes) documented in this encounter [facility] 09-20-2023 Note [facility] Wound Care Progress Note CHIEF COMPLAINT: [...] (Active) Wound Image 09/20/23 1447 Site Assessment Maceration;Pale;[place];Sloughing 09/20/23 1447 Carine-Wound Assessment Macerated 09/20/23 1447 [...] (Active) Wound Image 09/20/23 1445 Site Assessment Pale;[place];Maceration 09/20/23 1445 Carine-Wound Assessment Maceration 09/20/23 1445 Wound Length (cm) 0.7 cm 09/20/23 1445 Wound Width (cm) 0.5 cm 09/20/23 1445 Wound Surface Area (cm^2) 0.35 cm^2 09/20/23 1445 Wound Depth (cm) 0.2 cm 09/20/23 1445 Wound Volume (cm^3) 0.07 cm^3 09/20/23 1445 Wound Healing % 44 09/20/23 144 Drainage Description Serosanguineous;[place] 09/20/23 1445 Odor None [...] Unna boot Please see attached Discharge Instructions [facility] 09-13-2023 History of Present illness Narrative Associated Order(s): Debridement; Debridement Post-Procedure Diagnose(s): Lymphedema; Venous insufficiency (chronic) (peripheral); 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 [facility] Wound Care Progress Note CHIEF COMPLAINT: [...] (Active) Wound Image 09/13/23 1432 Site Assessment Maceration;[place];Pale;Sloughing 09/13/23 1432 Carine-Wound Assessment Macerated 09/13/23 1432 [...] (Active) Wound Image 09/13/23 1434 Site Assessment Maceration;Pale;[place] 09/13/23 1434 Carine-Wound Assessment Maceration 09/13/23 1434 Wound Length (cm) 0.8 cm 09/13/23 143 Wound Width (cm) 0.7 cm 09/13/23 1434 Wound Surface Area (cm^2) 0.56 cm^2 09/13/23 1434 Wound Depth (cm) 0.2 cm 09/13/23 1434 Wound Volume (cm^3) 0.112 cm^3 09/13/23 1434 Wound Healing % 11 09/13/23 1434 Drainage Description Serosanguineous 09/13/23 143 Odor Mild 09/13/234 Drainage Amount Moderate 09/13/23 1434 Treatments Cleansed [...] provider verified the correct patient, procedure, equipment, life support technician, and site/side marked as required. Debridement Details [...] provider verified the correct patient, procedure, equipment, life support technician, and site/side marked as required. Debridement Details [...] instructions please contact the wound center at [phone] If after regular business hours, please call [...] help with wound healing Nursing Care Facility: [facility] Wound Treatment: Wound: right toes & lower leg Dressing Frequency: Keep dressing in place all week Wound Cleansing: May shower with protection - Protect wound and dressing with water repellant cover/cast cover (e.g., large plastic bag) which can be obtained at [facility] and may take shower. Primary Dressing: Collagen Ag 2x2 Secondary Dressing: Calcium Alginate 4x4 & hydralock Secure With: Kerlex Roll gauze 4", Silk Tape 1" Compression: Unna boot & multilayer compression wrap - 3 layers (cover toes) documented in this encounter [facility] 09-13-2023 Note [facility] Wound Care Progress Note CHIEF COMPLAINT: [...] (Active) Wound Image 09/13/23 1432 Site Assessment Maceration;[place];Pale;Sloughing 09/13/23 1432 Carine-Wound Assessment Macerated 09/13/23 1432 [...] (Active) Wound Image 09/13/23 1434 Site Assessment Maceration;Pale;[place] 09/13/23 1434 Carine-Wound Assessment Maceration 09/13/23 1434 [...] provider verified the correct patient, procedure, equipment, life support technician, and site/side marked as required. Debridement Details [...] provider verified the correct patient, procedure, equipment, life support technician, and site/side marked as required. Debridement Details Performed by: larry (more content not included)... [facility] 09-06-2023 History of Present illness Narrative Associated Order(s): Debridement; Debridement; Debridement Post-Procedure Diagnose(s): Lymphedema; Venous insufficiency (chronic) (peripheral); Non-pressure chronic ulcer right lower leg, limited to breakdown skin (HCC) Images from the original note were not included. [facility] Wound Care Progress Note CHIEF COMPLAINT: [...] (Active) Wound Image 09/06/23 1356 Site Assessment [place];Pale;Sloughing 09/06/23 1356 [place]-Wound Assessment Moist 09/06/23 1356 Wound Length (cm) 1.8 cm 09/06/23 1356 Wound Width (cm) 2.5 cm 09/06/23 1356 Wound Surface Area (cm^2) 4.5 cm^2 09/06/23 1356 Wound Depth (cm) 0.2 cm 09/06/23 1356 Wound Volume (cm^3) 0.9 cm^3 09/06/23 1356 Wound Healing % -125 09/06/23 1356 Drainage Description Serosanguineous;Yellow 09/06/23 1356 Odor Mild 09/06/23 1356 Drainage Amount Moderate 09/06/23 1356 Treatments Cleansed 09/06/23 135 Primary Dressing Calcium alginate;Collagen Ag 09/06/23 135 Secondary Dressing 4x4 gauze;Sorbex 09/06/23 135 Secured with Kerlex;Paper tape 09/06/23 135 Compression Multilayer compression wrap - 3 layers;Unna boot 09/06/23 135 Dressing Status New dressing;Clean, dry & intact 09/06/23 1356 Wound/Incision 08/23/23 Venous Ulcer Toe - third Right (Active) Wound Image 09/06/23 135 Site Assessment Pale;[place];Sloughing 09/06/231353 Carine-Wound Assessment Moist 09/06/231353 Wound Length (cm) 0.9 cm 09/06/23 135 Wound Width (cm) 0.9 cm 09/06/23 135 Wound Surface Area (cm^2) 0.81 cm^2 09/06/23 135 Wound Depth (cm) 0.2 cm 09/06/23 135 Wound Volume (cm^3) 0.162 cm^3 09/06/23 1354 Wound Healing % -29 09/06/23 1354 Drainage Description Serosanguineous;Yellow 09/06/23 1354 Odor Mild 09/06/234 Drainage Amount Moderate 09/06/23 1354 Treatments Cleansed [...] Site Assessment Pale;Red 09/06/23 1349 Carine-Wound Assessment Pale;[place] 09/06/23 1349 Wound Length (cm) 1.8 cm 09/06/23 134 Wound Width (cm) 1.2 cm 09/06/23 1349 [...] AG 09/06/23 1349 Secondary Dressing Sorbex 09/06/23 134 Secured with Kerlex;Silk tape 09/06/23 134 Compression Multilayer compression wrap - 3 layers;Unna boot 09/06/23 134 Periwound Dressing Moisturizing lotion 08/30/23 0945 Dressing Status New dressing;Clean, dry & intact 09/06/23 1349 Wound/Incision 08/30/23 Skin Tear Calf Right (Active) Wound Image 09/06/23 135 Site Assessment Dry;Pale;[place] 09/06/23 135 Carine-Wound Assessment Dry 09/06/233 Wound Length (cm) 0.6 cm 09/06/231352 Wound Width (cm) 0.1 cm 09/06/231352 Wound Surface Area (cm^2) 0.06 cm^2 09/06/231352 Wound Depth (cm) 0.1 cm 09/06/231352 Wound Volume (cm^3) 0.006 cm^3 09/06/231352 Wound Healing % 82 09/06/231352 Drainage Description Unable to assess 09/06/23 1353 [...] provider verified the correct patient, procedure, equipment, life support technician, and site/side marked as required. Debridement Details [...] provider verified the correct patient, procedure, equipment, life support technician, and site/side marked as required. Debridement Details [...] provider verified the correct patient, procedure, equipment, life support technician, and site/side marked as required. Debridement Details [...] instructions please contact the wound center at [phone] If after regular business hours, please call [...] help with wound healing Nursing Care Facility: [facility] Wound Treatment: Wound: right toes & lower leg Dressing Frequency: Keep dressing in place all week Wound Cleansing: May shower with protection - Protect wound and dressing with water repellant cover/cast cover (e.g., large plastic bag) which can be obtained at [facility] and may take shower. Primary Dressing: Collagen Ag 2x2 Secondary Dressing: Calcium Alginate 4x4 & hydralock Secure With: Kerlex Roll gauze 4", Silk Tape 1" Compression: Unna boot & multilayer compression wrap - 3 layers (cover toes) documented in this encounter [facility] 09-06-2023 Note [facility] Wound Care Progress Note CHIEF COMPLAINT: [...] (Active) Wound Image 09/06/23 1356 Site Assessment [place];Pale;Sloughing 09/06/231355 Carine-Wound Assessment Moist 09/06/231355 Wound Length [...] Right (Active) Wound Image 09/06/231353 Site Assessment Pale;[place];Sloughing 09/06/231353 Carine-Wound Assessment Moist 09/06/231353 Wound Length [...] 4x4 gauze;Sorbex 09/06/231353 Secured with Kerlex;Silk tape 09/06/23 1354 Compression Multilayer compression wrap - 3 layers;Unna boot 09/06/23 135 Dressing Status New dressing;Clean, dry & intact 09/06/23 1354 Wound/Incision 08/23/23 Venous Ulcer Leg Right;Circumferential (Active) Wound Image 09/06/23 134 Site Assessment Pale;Red 09/06/23 134 Carine-Wound Assessment Pale;[place] 09/06/23 1349 Wound Length (cm) 1.8 cm 09/06/23 1349 Wound Width (cm) 1.2 cm 09/06/23 134 Wound Surface Area (cm^2) 2.16 cm^2 09/06/231348 [...] (Active) Wound Image 09/06/23 135 Site Assessment Dry;Pale;[place] 09/06/23 135 Carine-Wound Assessment Dry 09/06/231352 Wound Length (cm) 0.6 cm 09/06/231352 Wound Width (cm) 0.1 cm 09/06/231352 Wound Surface Area (cm^2) 0.06 cm^2 09/06/231352 Wound Depth (cm) 0.1 cm 09/06/231352 Wound Volume (cm^3) 0.006 cm^3 09/06/231352 Wound Healing % 82 09/06/23 135 Drainage Description Unable to assess 09/06/23 135 Odor None 05/29/24 1353 Drainage Amount None 09/06/23 1353 Treatments Cleansed 09/06/23 1353 Primary Dressing Collagen Ag;Calcium alginate 08/30/23 0950 Secondary Dressing 4x4 gauze 08/30/23 0950 Secured with Kerlex;Paper tape 08/30/23 0950 Compression Unna boot;Multil (more content not included)... [facility] 08-30-2023 History of Present illness Narrative Associated Order(s): Debridement Post-Procedure Diagnose(s): Venous insufficiency (chronic) (peripheral); Non-pressure chronic ulcer right lower leg, limited to breakdown skin (HCC) Images from the original note were not included. [facility] Wound Care Progress Note CHIEF COMPLAINT: [...] Toe- second Right (Active) Wound Image 08/30/23 0943 Site Assessment Pale;[place];Sloughing 08/30/2343 Carine-Wound Assessment Moist 08/30/2343 Wound Length (cm) 1.3 cm 08/30/2343 Wound Width (cm) 2.5 cm 08/30/23942 Wound Surface Area (cm^2) 3.25 cm^2 08/30/2343 Wound Depth (cm) 0.1 cm 08/30/23942 Wound Volume (cm^3) 0.325 cm^3 08/30/2343 Wound Healing % 19 08/30/23 0943 Drainage Description Serosanguineous 08/30/2343 Odor Mild 08/30/2343 Drainage Amount Small 08/30/2343 Treatments Cleansed 08/30/23942 Primary Dressing Calcium alginate;Collagen Ag 08/30/2343 Secondary Dressing 4x4 gauze 08/30/2343 Secured with Kerlex;Paper tape 08/30/23942 Dressing Status New dressing;Clean, dry & intact 08/30/2343 Wound/Incision 08/23/23 Venous Ulcer Toe - third Right (Active) Wound Image 08/30/23939 Site Assessment Pale;[place];Sloughing 08/30/23939 Carine-Wound Assessment Moist 08/30/2340 Wound Length (cm) 1 cm 08/30/23939 Wound Width (cm) 0.5 cm 08/30/23939 Wound Surface Area (cm^2) 0.5 cm^2 08/30/2340 Wound Depth (cm) 0.2 cm 08/30/2340 Wound Volume (cm^3) 0.1 cm^3 08/30/23939 Wound Healing % 21 08/30/2340 Drainage Description Serosanguineous 08/30/2340 Odor Mild 08/30/2340 Drainage Amount Small 08/30/23 0940 Treatments Cleansed 08/30/23939 Primary Dressing Calcium alginate;Collagen Ag 08/30/23939 Secondary Dressing 4x4 gauze 08/30/2340 Secured with Kerlex;Paper tape 08/30/23939 Dressing Status New dressing;Clean, dry & intact 08/30/2340 Wound/Incision 08/23/23 Venous Ulcer Leg Right;Circumferential (Active) Wound Image 08/30/23 0945 Site Assessment [place];Red 08/30/23 0945 Carine-Wound Assessment Dry 08/30/23 0945 Wound Length (cm) 2.5 cm 08/30/23944 Wound Width (cm) 1.5 cm 08/30/23 0945 Wound Surface Area (cm^2) 3.75 cm^2 08/30/23 0945 Wound Depth (cm) 0.1 cm 08/30/23 09 Wound Volume (cm^3) 0.375 cm^3 08/30/23 0945 Wound Healing % 97 08/30/23 0945 Drainage Description Serosanguineous 08/30/23 0945 Odor None 08/30/2345 Drainage Amount Small 08/30/23 09 Treatments Cleansed 08/30/2345 Primary Dressing Calcium alginate;Collagen Ag 08/30/2345 Secondary Dressing 4x4 gauze 08/30/23 0945 Secured [...] provider verified the correct patient, procedure, equipment, life support technician, and site/side marked as required. Debridement Details [...] from the original note were not included. [facility] Wound Care Progress Note CHIEF COMPLAINT: [...] Right (Active) Wound Image 08/30/23942 Site Assessment Pale;[place];Sloughing 08/30/23 09 Carine-Wound Assessment Moist 08/30/23942 Wound Length (cm) 1.3 cm 08/30/23942 Wound Width (cm) 2.5 cm 08/30/23942 Wound Surface Area (cm^2) 3.25 cm^2 08/30/23942 Wound Depth (cm) 0.1 cm 08/30/23942 Wound Volume (cm^3) 0.325 cm^3 08/30/23 09 Wound Healing % 19 08/30/2343 Drainage Description Serosanguineous 08/30/23942 Odor Mild 08/30/23942 Drainage Amount Small 08/30/23942 Treatments Cleansed 08/30/23942 Primary Dressing Calcium alginate;Collagen Ag 08/30/23942 Secondary Dressing 4x4 gauze 08/30/23942 Secured with Kerlex;Paper tape 08/30/23942 Dressing Status New dressing;Clean, dry & intact 08/30/23942 Wound/Incision 08/23/23 Venous Ulcer Toe - third Right (Active) Wound Image 08/30/23939 Site Assessment Pale;[place];Sloughing 08/30/23939 Carine-Wound Assessment Moist 08/30/23 09 Wound Length (cm) 1 cm 08/30/23939 Wound Width (cm) 0.5 cm 08/30/23939 Wound Surface Area (cm^2) 0.5 cm^2 08/30/23939 Wound Depth (cm) 0.2 cm 08/30/23939 Wound Volume (cm^3) 0.1 cm^3 08/30/23 0940 Wound Healing % 21 08/30/23 0940 Drainage Description Serosanguineous 08/30/23 0940 Odor Mild 08/30/23 0940 Drainage Amount Small 08/30/23 0940 Treatments Cleansed 08/30/23 0940 Primary Dressing Calcium alginate;Collagen Ag 08/30/23 0940 Secondary Dressing 4x4 gauze 08/30/23 0940 Secured with Kerlex;Paper tape 08/30/23 09 Dressing Status New dressing;Clean, dry & intact 08/30/23 0940 Wound/Incision 08/23/23 Venous Ulcer Leg Right;Circumferential (Active) Wound Image 08/30/23 0945 Site Assessment [place];Red 08/30/23 0945 Carine-Wound Assessment Dry 08/30/23 0945 Wound Length (cm) 2.5 cm 08/30/23 0945 Wound Width (cm) 1.5 cm 08/30/23 0945 Wound Surface Area (cm^2) 3.75 cm^2 08/30/23 0945 Wound Depth (cm) 0.1 cm 08/30/23944 Wound [...] provider verified the correct patient, procedure, equipment, life support technician, and site/side marked as required. Debridement Details [...] instructions please contact the wound center at [phone] If after regular business hours, please call [...] help with wound healing Nursing Care Facility: [facility] Wound Treatment: Wound: right toes & lower leg Dressing Frequency: Keep dressing in place all week Wound Cleansing: May shower with protection - Protect wound and dressing with water repellant cover/cast cover (e.g., large plastic bag) which can be obtained at [facility] and may take shower. Primary Dressing: Collagen [...] instructions please contact the wound center at [phone] If after regular business hours, please call [...] help with wound healing Nursing Care Facility: [facility] Wound Treatment: Wound: right toes & lower leg Dressing Frequency: Keep dressing in place all week Wound Cleansing: May shower with protection - Protect wound and dressing with water repellant cover/cast cover (e.g., large plastic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 stable. Tomorrow?? Check daily labs. [...] MD Division of Hospitalist Medicine Inpatient Medical Services/[facility] PAGER: [employer] chat Speech-Language Pathology Facility/Department: [place] [address] DYSPHAGIA TREATMENT NAME: Moises Madrid : 1960 [...] Dysphagia - Minced and Moist; Mildly Thick ([place]) Diet effective now Question Answer Comment Diet type Dysphagia - Minced and Moist Fluid consistency Mildly Thick ([place]) 06/22/22 1230 06/13/22 1358 Supplement:Lunch, Dinner; Chocolate [...] II) Current Liquid Diet : Mildly Thick ([place]) Dentition: Edentulous Patient Positioning: Upright in bed [...] (Dysphagia II) Liquid Consistency Recommendation: Mildly Thick ([place]) Recommended Form of Meds: Meds in puree [...] to advance as tolerated. Treatment Plan Requires HONEY PROCESSOR Intervention: Yes Frequency/Duration: Frequency of Treatment: 3 [...] . >> nl.. ef=65 % Leucocytosis.>>20. Blood gppbu=586 mg. Gi consult reviewed. More alert. No [...] : GIB No Renal : CKD No VEGETABLE PREPARER : CVA/TIA No Musculoskeletal system : DJD [...] QT Interval 352 QTC Interval 479 P [place] 43 QRS [place] -36 T Wave [place] 60 ND Interval 160 Impression SINUS TACHYCARDIA LEFT AXIS [...] RENAL STONE, HYPONATREMIA, NA-=129. > RESTRICT FLUIDS. Sq=711. Cr0.88/22. na >>low= 126. SLOWLY IMPROVING. LESS ABD. PAIN. TOLERATING FOOD. PLAN : Chest pain>>>Stress test normal., ef=65 %NO CP TODAY, CP DUE TO PANCREATITIS. Noncardiac cp. CARDIAC STATUS IS STABLE. Essential hypertension, benign>>>Meds Hyperlipidemia>>Meds>>Meds Troponin=0.012. ekg no change, Dr. Dickerson and advise changing Zosyn to Ertapenem therapy on 06/14. However, patient vital signs change becoming more tachycardic, tachypneic and febrile ty=859.>>111. BP= 143/85 MMHG. Ef=65 %. Pt/ot.DIET. SHELTON HERMAN M.D., [facility] 06/22/2022 .. [facility] Progress Note Subjective/ 61 y.o. year old male who we are seeing in consultation for Hyponatremia. KOBE Feels better No more nausea Eager for [...] any questions or concerns. Brenda Blanco APRN, HOME CARE PHYSICAL THERAPIST [facility], [facility] [phone] office I have reviewed the above assessment and plan with the ADMINISTRATIVE SERVICES ASSISTANT. I agree with above note. Na levels acceptable. C/w protein intake. Treat nausea. Tighter glycemic control needed. 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 Allergies Allergen Reactions Hydralazine Unknown Sulfamethoxazole-Trimethoprim Unknown Temazepam Unknown Tramadol Unknown Clindamycin Rash Burn, rash Burn, rash Oxygen Level: O2 Device: Room air Current Diet Level: Dietary Orders (From admission, onward) Start Ordered 06/21/22 1520 Adult diet Dysphagia - Pureed; 1500 ml; Mildly Thick ([place]); Low Fat (less than or equal to 50 gm/day) Diet effective now Question Answer Comment Diet type Dysphagia - Pureed Dietary fluid restriction / 24h: 1500 ml Fluid consistency Mildly Thick ([place]) GI restriction: Low Fat (less than or [...] (Dysphagia II) Liquid Consistency Recommendation: Mildly Thick ([place]) Recommended Form of Meds: Meds in puree [...] Continue mildly thick liquis. Treatment Plan Requires HONEY PROCESSOR Intervention: Yes Frequency/Duration: Frequency of Treatment: 3 days/wk for Duration of Treatment: 2 weeks Therapy Time HONEY PROCESSOR Individual Minutes Time In: 1537 Time Out: [...] any questions or concerns. Brenda Blanco APRN, HOME CARE PHYSICAL THERAPIST [facility] [employer] [facility] [phone] office Seen and examined. Agree with above [...] Dysphagia - Pureed; 1500 ml; Mildly Thick ([place]); Low Fat (less than or equal to [...] brain injury) LABS: CBC: Recent Labs 06/19/22 03006/20/22 0616 06/21/22 0513 WBC 19.0* 17.8* 16.2* [...] mg, 6 mg, Oral, Nightly PRN, Brenda Hagna, 6 mg at 06/11/222117 memantine (Namenda) tablet [...] , Topical, PRN, Bertha Rodrigez APRN - HOME CARE PHYSICAL THERAPIST, Given at 06/18/22 2123 venlafaxine (Effexor) tablet 75 mg, 75 mg, Oral, BID, Ira Marin MANAGER BUSINESS PROCESS - HOME CARE PHYSICAL THERAPIST, 75 mg at 06/21/22 0852 Assessment Data: [...] MD Division of Hospitalist Medicine Inpatient Medical Services/[facility] Cardiology Progress Note Patient Name: Moises Madrid Patient Age: 61 y.o. Date: 06/21/2022 Alert, comfortable stable SUBJECTIVE: pt. In isolation Sob.c/o abd. Pain. No cp. PANCREATITIS. CHOLECYSTITIS. RENAL STONE, Stress . >> nl.. ef=65 % Leucocytosis.>>20. Blood nerbz=692 mg. Gi consult reviewed. More alert. No [...] : GIB No Renal : CKD No VEGETABLE PREPARER : CVA/TIA No Musculoskeletal system : DJD [...] QT Interval 352 QTC Interval 479 P [place] 43 QRS [place] -36 T Wave [place] 60 ND Interval 160 Impression SINUS TACHYCARDIA LEFT AXIS DEVIATION LATE PRECORDIAL R/S TRANSITION LEFT VENTRICULAR HYPERTROPHY Electronically Signed On 06-10-2022 9:55:05 EST by Dimple Nicolemercy[facility] Echo: Transthoracic echocardiogram (TTE) complete with contrast, [...] RENAL STONE, HYPONATREMIA, NA-=129. > RESTRICT FLUIDS. Ra=840. Cr0.88/22. na >>low= 126. SLOWLY IMPROVING. LESS ABD. PAIN. TOLERATING FOOD. PLAN : Chest pain>>>Stress test normal., ef=65 %NO CP TODAY, CP DUE TO PANCREATITIS. Noncardiac cp. CARDIAC STATUS IS STABLE. Essential hypertension, benign>>>Meds Hyperlipidemia>>Meds>>Meds Troponin=0.012. ekg no change, Dr. Dickerson and advise changing Zosyn to Ertapenem therapy on 06/14. However, patient vital signs change becoming more tachycardic, tachypneic and febrile au=141.>>111. BP= 143/85 MMHG. Ef=65 %. Pt/ot. SHELTON HERMAN M.D., [facility] 06/21/2022 Images from the original note were not included. [facility] Progress Note Moises Madrid AGE: [...] mouth Nightly. cholecalciferol (Vitamin D3) 1.25 MG (62441 UT) tablet Take by mouth 1 (one) [...] Do not crush, chew, or split. HYDROcodone-acetaminophen ([place]) 5-325 MG tablet Take 1 tablet by [...] Apply topically if needed for dry skin. [place]-3 Fatty Acids (Fish Oil) 1000 MG capsule [...] miconazole powder BID Please follow up at [facility] [place] after hospital discharge. I personally obtained the [...] my own independent evaluation of this patient. [facility] - Infectious Diseases Attending Progress Note Subjective: No acute events- still c/o epigastric pain, no more nausea. Afebrile. Tolerating soft diet, does not appear to aggravate GI symptoms. [place] with good UOP. Objective: Vitals: Patient Vitals for the past 24 hrs: BP Temp Temp src Pulse Resp SpO2 Weight 06/21/22 0513 -- -- -- -- -- -- 113 [...] Results Component Value Date/Time NA 126 (L) 06/21/2022 05 K 4.0 06/21/2022512 CL 93 (L) 06/21/2022 05 CO2 33 (H) 06/21/2022512 BUN 19 06/21/2022512 CREATININE 0.74 06/21/2022 05 CREATININE 0.97 02/19/20202057 GLUCOSE 252 (H) 06/21/2022 05 CALCIUM 8.0 (L) 06/21/2022 05 PROT 6.5 06/21/2022 05 BILITOT 0.7 06/21/2022 05 ALKPHOS 78 06/21/2022 05 AST 56 (H) 06/21/2022 05 ALT 30 06/21/2022 0513 PROCAL 0.46 (H) 06/16/2022 0318 PROCAL 0.47 (H) 06/14/20226 PROCAL 0.06 06/10/2022 0229 Lab Results Component Value Date/Time WBC 16.2 (H) 06/21/2022 05 HGB 12.4 (L) 06/21/2022 05 HCT 36.1 (L) 06/21/2022 05 PLT 401 06/21/2022 05 LYMPHOPCT 20 06/21/2022 0513 LYMPHOPCT 17.9 (L) 06/20/2022 0616 MONOPCT 3 06/21/2022 05 MONOPCT 6.1 06/20/2022 0616 BASOPCT 0.9 06/20/2022 [...] [facility] H/o EtOH use. [...] opportunity to participate in this patient's care. [facility] - Surgery [facility] Physicians Surgery Patient Name: Moises Madrid Date: [...] chart review was performed. Remigio Napier MD [facility] General Surgery 4:07 PM 06/21/2022 GENERAL SURGERY [...] Adult diet Dysphagia - Pureed; Mildly Thick ([place]); Low Fat (less than or equal to [...] 2* 1* 3 LIVER PROFILE: Recent Labs 06/18/2231606/19/22 0301 06/20/22 0616 AST [...] tablet 5 mg, 5 mg, Oral, Daily, Ira Marin APRN - HOME CARE PHYSICAL THERAPIST, 5 mg at 06/20/22 0828 aspirin chewable tablet 81 mg, 81 mg, [...] Daily, Brenda Hagan, 40 mg at 06/20/22 08 glucagon (human recombinant) injection 1 mg, 1 [...] Topical, PRN, SIMIN Maddox CNP, Given at 06/18/223 torsemide (Demadex) tablet 10 mg, 10 mg, Oral, BID, Mainor Kim MD, 10 mg at 06/20/22 0828 venlafaxine (Effexor) tablet 75 mg, 75 mg, Oral, BID, SIMIN Frausto CNP, 75 mg at 06/20/22 0828 Assessment Data: [...] with peripancreatic abscess s/p percutaneous drain (3/) Acute hypoxic respiratory insufficiency 2/2 coronavirus and [...] MD Division of Hospitalist Medicine Inpatient Medical Services/[facility] - [...] 38.9 (L) 06/20/2022 0616 PLT 389 06/20/2022 06 LYMPHOPCT 17.9 (L) 06/20/2022 0616 MONOPCT 6.1 06/20/2022 0616 BASOPCT 0.9 06/20/2022 0616 NEUTROABS 12.8 (H) 06/20/2022 06 Micro: 06/10 abd fluid cx: neg Resp [...] [facility]. 2 No evidence of active infection - [...] any questions or concerns. Brenda Blanco APRN, HOME CARE PHYSICAL THERAPIST [facility], [facility] [phone] office Seen and examined. Agree with above A and p. Need nausea control and more protein intake PO to address hyponatremia. Speech-Language Pathology Facility/Department: [facility] HICU DYSPHAGIA TREATMENT NAME: Moises Madrid : [...] Adult diet Dysphagia - Pureed; Mildly Thick ([place]); Low Fat (less than or equal to 50 gm/day) Diet effective now Question Answer Comment Diet type Dysphagia - Pureed Fluid consistency Mildly Thick ([place]) GI restriction: Low Fat (less than or [...] (Dysphagia I) Liquid Consistency Recommendation: Mildly Thick ([place]) Recommended Form of Meds: Crushed in puree [...] and moist for advancement. Treatment Plan Requires HONEY PROCESSOR Intervention: Yes Frequency/Duration: Frequency of Treatment: 3 days/wk for Duration of Treatment: 2 weeks Therapy Time HONEY PROCESSOR Individual Minutes Time In: 1231 Time Out: 1258 Minutes: 27 ALISHA Canchola 06/20/2022 1:24 PM Occupational Therapy Facility/Department: [facility] Occupational Therapy Treatment NAME: Moises Madrid : 1960 Date of Service: 06/20/2022 Discharge Recommendations: Subacute/Correction Facility Assessment Performance deficits / Impairments: Decreased [...] of right foot with fat layer exposed ([facility]) were also pertinent to this visit. 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 has a past medical history of Anxiety, Ataxia, Bipolar disorder ([facility]), Chronic pain, Constipation, Contracture, right hand, [...] Minutes (1 ther act) Angle Ignacio PTA [facility] - Surgery [facility] Physicians Surgery Patient Name: Moises Madrid Date: [...] chart review was performed. Remigio Napier MD [facility] General Surgery 3:21 PM 06/20/2022 GENERAL [...] dry, and intact Data: CBC: Recent Labs 06/18/2231606/19/2230006/20/22 0616 WBC 20.7* 19.0* 17.8* HGB 13.3 [...] proceed with plan. Raimundo Riley APRN - HOME CARE PHYSICAL THERAPIST Cardiology Progress Note Patient Name: Moises Madrid Patient Age: 61 y.o. Date: 06/20/2022 Alert, comfortable stable SUBJECTIVE: pt. In isolation Sob.c/o abd. Pain. No cp. PANCREATITIS. CHOLECYSTITIS. RENAL STONE, Stress . >> nl.. ef=65 % Leucocytosis.>>20. Blood jnjve=660 mg. Gi consult reviewed. More alert. No cp.pulse ox=96. VITALS BP 130/80 (BP Location: Left arm, Patient Position: Lying) Pulse 104 Temp 37.9 C (100.2 F) (Oral) Resp 21 Ht 6' 2" (1.88 m) Wt 250 lb 14.1 oz (114 kg) SpO2 93% BMI 32.21 kg/m I&O Intake/Output Summary (Last 24 hours) at 06/20/2022 0932 Last data filed at 06/20/2022 0600 Gross [...] : GIB No Renal : CKD No VEGETABLE PREPARER : CVA/TIA No Musculoskeletal system : DJD [...] QT Interval 352 QTC Interval 479 P [place] 43 QRS [place] -36 T Wave [place] 60 ND Interval 160 Impression SINUS TACHYCARDIA LEFT AXIS [...] RENAL STONE, HYPONATREMIA, NA-=129. > RESTRICT FLUIDS. Yu=496. Cr0.88/22. na >>low= 126. PLAN : Chest pain>>>Stress test normal., ef=65 %NO CP TODAY, CP DUE TO PANCREATITIS. Noncardiac cp. CARDIAC STATUS IS STABLE. Essential hypertension, benign>>>Meds Hyperlipidemia>>Meds>>Meds Troponin=0.012. ekg no change, Dr. Dickerson and advise changing Zosyn to Ertapenem therapy on 06/14. However, patient vital signs change becoming more tachycardic, tachypneic and febrile hn=049.>>111. BP= 143/85 MMHG. Ef=65 %. Pt/ot. SHELTON HERMAN M.D., [facility] 06/20/2022 Images from the original note were [...] [facility]. 2 No evidence of active infection - [...] . >> nl.. ef=65 % Leucocytosis.>>20. Blood nsamt=839 mg. Gi consult reviewed. Very lethargic & [...] : GIB No Renal : CKD No VEGETABLE PREPARER : CVA/TIA No Musculoskeletal system : DJD [...] QT Interval 352 QTC Interval 479 P [place] 43 QRS [place] -36 T Wave [place] 60 ND Interval 160 Impression SINUS TACHYCARDIA LEFT AXIS [...] RENAL STONE, HYPONATREMIA, NA-=129. > RESTRICT FLUIDS. Qb=181. Cr0.88/22. PLAN : Chest pain>>>Stress test normal., ef=65 %NO CP TODAY, CP DUE TO PANCREATITIS. Noncardiac cp. CARDIAC STATUS IS STABLE. Essential hypertension, benign>>>Meds Hyperlipidemia>>Meds>>Meds Troponin=0.012. ekg no change, Dr. Dickerson and advise changing Zosyn to Ertapenem therapy on 06/14. However, patient vital signs change becoming more tachycardic, tachypneic and febrile pb=331.>>111. BP= 143/85 MMHG. SHELTON HERMAN M.D., [facility] 06/19/2022 .. [facility] Progress Note Subjective/ 61 y.o. [...] from last 7 days Lab Units 06/19/22 03006/18/2231606/17/22 0438 SODIUM mmol/L 126* 129* 130* POTASSIUM mmol/L 3.9 3.8 3.7 CHLORIDE mmol/L 90* 93* 95* CO2 mmol/L 34* 35* 33* BUN mg/dL 24* 22* 19 CREATININE mg/dL 0.85 0.88 0.82 GLUCOSE mg/dL 250* 195* 181* CALCIUM mg/dL 7.9* 8.3* 8.0* Results from last 7 days Lab Units 06/19/22 0301 06/18/2231606/17/22 0438 WBC AUTO 10*3/uL 19.0* 20.7* 19.8* HEMOGLOBIN [...] were not included. Hospitalist Progress Note 06/19/2022 1616-1613: Please page me ([phone]) for patient care issues. [phone]: Please page [facility] Hospitalist for any issues. Subjective: Admit Date: 06/07/2022 PCP: Demetrius Fenton Room#: 232-06/232-06 A Interval History: No overnight events. Feels better this am. Ao x 3. Breathing non-labored and remains on 2 L NC. Denies chest pain, nausea, vomiting, abdominal pain, diarrhea or constipation. Adult diet Dysphagia - Pureed; Mildly Thick ([place]); Low Fat (less than or equal to 50 gm/day) @[id number]@ 24HR INTAKE/OUTPUT: Intake/Output Summary (Last 24 hours) at 06/19/2022 0835 Last data filed at 06/19/2022 0500 Gross per 24 hour Intake 2260 ml Output 2115 ml Net 145 ml Past Medical History: Past Medical History: Diagnosis Date Anxiety Ataxia Bipolar disorder ([facility]) Chronic pain Constipation Contracture, right hand Depression Dysphagia Dysphagia Dysphonia Edema GERD (gastroesophageal reflux disease) Headache Hemiplegia (CMS/HCC) ([facility]) Hyperlipidemia Hypertension Insomnia Muscle weakness Neuropathy TBI (traumatic brain injury) LABS: CBC: Recent Labs 06/17/22 0438 06/18/22 0317 06/19/22 0301 WBC 19.8* 20.7* 19.0* RBC 4.18* 4.39* 4.26* HGB 12.6* 13.3 13.0 HCT 37.7* 39.5* 38.2* MCV 90.0 90.0 89.6 RDW 13.9 13.6 13.9 PLT 264 304 325 BMP: Recent Labs 06/17/228 06/18/2231606/19/22 0301 NA 130* 129* 126* K 3.7 [...] (last 21 days) XR chest 1 view [[id number]] Collected: 06/16/22427 Order Status: Completed Updated: 06/16/22516 [...] 4:29 AM EST XR chest 1 view [[id number]] Collected: 06/15/22 1132 Order Status: Completed Updated: [...] Units Date/Time CT abdomen pelvis w contrast [[id number]] Collected: 06/13/222204 Order Status: Completed Updated: 06/13/222220 [...] 06/13/2022 10:20 PM EST US abdomen limited [[id number]] Collected: 06/13/22823 Order Status: Completed Updated: 06/13/22829 Narrative: [facility] Name[facility] MOISES [facility]ADRID [facility] 1960 [id number] Exam Date/Time: 06/13/2022 07:20 Procedure: US ABDOMEN [...] negative sonographic Cole's sign reported by the mri technologist. Pancreas: Obscured by bowel gas. Right Kidney: Largely obscured by bowel gas. Additional findings: Trace perihepatic ascites. Impression: 1. Technically limited evaluation. In particular the left hepatic lobe, pancreas, and right kidney are not well visualized or evaluated. 2. Cholelithiasis without sonographic evidence of acute cholecystitis. 3. No biliary ductal dilatation Report Dictated on Electronically Signed By: Cheko Mayraleanne Electronically Signed Date/Time: 06/13/2022 8:29 AM EST XR chest 1 view [[id number]] Collected: 06/12/22 1254 Order Status: Completed Updated: [...] PM EST XR foot 3+ views right [[id number]] Collected: 06/12/22 1250 Order Status: Completed Updated: [...] EST CT guided abscess fluid collection drainage [[id number]] Collected: 06/10/221606 Order Status: Completed Updated: 06/10/221609 Narrative: Patient Name: MOISES MADRID : 1960 [id number] Exam Date/Time: 06/10/2022 14:50 Procedure: CT GUIDED ABSCESS FLUID COLLECTION DRAINAGE Ordering Provider: EDGAR JONATHAN Reason For Exam: PROCEDURE: Drainage catheter placement Procedural Personnel Attending physician(s): Jus Barlow Indication: Peripancreatic fluid collection Additional clinical history: None Complications: No immediate complications. Impression: Percutaneous placement of a 10 [place] drainage catheter into peripancreatic fluid collection, yielding [...] fluid collection - Drainage catheter placed: 10 [place] APD - External catheter securement: Non-absorbable suture [...] EST CT abdomen pelvis wo IV contrast [[id number]] Collected: 06/10/22914 Order Status: Completed Updated: 06/10/22930 Narrative: Patient Name: MOISES MADRID : 1960 [id number] Exam Date/Time: 06/10/2022 08:50 Procedure: CT ABDOMEN [...] 9:30 AM EST XR chest 1 view [[id number]] Collected: 06/10/22843 Order Status: Completed Updated: 06/10/22850 [...] 8:50 AM EST XR chest 1 view [[id number]] Collected: 06/07/222325 Order Status: Completed Updated: 06/07/222327 Narrative: Patient Name: MOISES MADRID : 1960 [id number] Exam Date/Time: 06/07/2022 23:25 Procedure: XR CHEST [...] disorder Medical Decision Making -Patient presents to [facility] ED from SNF on 06/08 with [...] MD Division of Hospitalist Medicine Inpatient Medical Services/[facility]: Epic chat Images from the original note were not included. [facility] - Infectious Diseases Attending Progress Note [place]: 61 y/o s/p remote CVA and hemiplegia presented from [facility] on 06/07/22 with acute substernal CP [...] circulation of both feet Labs: Recent Labs 06/16/2231706/17/22 0438 06/18/22316 NA 132* 130* 129* K 4.0 3.7 3.8 CL 95* 95* 93* CO2 32* 33* 35* BUN 16 19 22* CREATININE 0.80 0.82 0.88 GLUCOSE 173* 181* 195* CALCIUM 8.1* 8.0* 8.3* PROT 6.2* 6.5 6.9 BILITOT 0.7 0.6 0.7 ALKPHOS 114 117 118 AST 36 35 40 ALT 25 23 28 PROCAL 0.46* -- -- Recent Labs 06/16/228 06/17/22 0438 06/18/22316 WBC 19.9* 19.8* 20.7* HGB 12.6* 12.6* [...] . >> nl.. ef=65 % Leucocytosis.>>20. Blood yvvqm=445 mg. Gi consult reviewed. Very lethargic & [...] : GIB No Renal : CKD No VEGETABLE PREPARER : CVA/TIA No Musculoskeletal system : DJD [...] QT Interval 352 QTC Interval 479 P [place] 43 QRS [place] -36 T Wave [place] 60 ND Interval 160 Impression SINUS TACHYCARDIA LEFT AXIS [...] RENAL STONE, HYPONATREMIA, NA-=129. > RESTRICT FLUIDS. Gx=157. Cr0.88/22. PLAN : Chest pain>>>Stress test normal., ef=65 %NO CP TODAY, Noncardiac cp. CARDIAC STATUS IS STABLE. Essential hypertension, benign>>>Meds Hyperlipidemia>>Meds>>Meds Troponin=0.012. ekg no change, Dr. Dickerson and advise changing Zosyn to Ertapenem therapy on 06/14. However, patient vital signs change becoming more tachycardic, tachypneic and febrile eu=140. SHELTON HERMAN M.D., [facility] 06/18/2022 Images from the original note were not included. Hospitalist Progress Note 06/18/2022 [phone]: Please page me ([phone]) for patient care issues. [phone]: Please page [facility] Hospitalist for any issues. Subjective: Admit Date: 06/07/2022 PCP: Demetrius Fenton Room#: 232-06/232-06 A Interval History: No overnight events. Patient AO x 3 this am. Feels much better. Tolerated breakfast. States that he feels improved. Remains tachycardic and on 4 L NC. Denies chest pain, nausea, vomiting, abdominal pain, diarrhea or constipation. Adult diet Dysphagia - Pureed; Mildly Thick ([place]); Low Fat (less than or equal to 50 gm/day) @[id number]@ 24HR INTAKE/OUTPUT: Intake/Output Summary (Last 24 hours) [...] (last 21 days) XR chest 1 view [[id number]] Collected: 06/16/22427 Order Status: Completed Updated: 06/16/22516 Narrative: Patient Name: MOISES MADRID : 1960 [id number] Exam Date/Time: 06/16/2022 05:16 Procedure: XR CHEST [...] 4:29 AM EST XR chest 1 view [[id number]] Collected: 06/15/22 113 Order Status: Completed Updated: [...] Units Date/Time CT abdomen pelvis w contrast [[id number]] Collected: 06/13/222204 Order Status: Completed Updated: 06/13/222220 [...] Date/Time: 06/13/2022 10:20 PM EST abdomen limited [[id number]] Collected: 06/13/22823 Order Status: Completed Updated: 06/13/22829 [...] negative sonographic Cole's sign reported by the mri technologist. Pancreas: Obscured by bowel gas. Right [...] 8:29 AM EST XR chest 1 view [[id number]] Collected: 06/12/22 1254 Order Status: Completed Updated: 06/12/22 1257 Narrative: Patient Name: MOISES MADRID : 1960 [id number] Exam Date/Time: 06/12/2022 12:43 Procedure: XR CHEST [...] PM EST XR foot 3+ views right [[id number]] Collected: 06/12/22 1250 Order Status: Completed Updated: [...] EST CT guided abscess fluid collection drainage [[id number]] Collected: 06/10/22 1607 Order Status: Completed Updated: 06/10/22 1610 Narrative: Patient Name: MOISES MADRID : 1960 Exam Date/Time: 06/10/2022 14:50 Procedure: CT GUIDED ABSCESS FLUID COLLECTION DRAINAGE Ordering Provider: EDGAR JONATHAN Reason For Exam: PROCEDURE: Drainage catheter placement Procedural Personnel Attending physician(s): Jus Barlow Indication: Peripancreatic fluid collection Additional clinical history: None Complications: No immediate complications. Impression: Percutaneous placement of a 10 [place] drainage catheter into peripancreatic fluid collection, yielding [...] fluid collection - Drainage catheter placed: 10 [place] APD - External catheter securement: Non-absorbable suture [...] EST CT abdomen pelvis wo IV contrast [[id number]] Collected: 06/10/22914 Order Status: Completed Updated: 06/10/22930 Narrative: Patient Name: MOISES MADRID : 1960 [facility]#: [id number] Exam Date/Time: 06/10/2022 08:50 Procedure: CT ABDOMEN PELVIS WO IV CONTRAST Ordering Provider: EDAGR JONATHAN Reason For Exam: Abdominal pain, acute, [...] 9:30 AM EST XR chest 1 view [[id number]] Collected: 06/10/22843 Order Status: Completed Updated: 06/10/22850 [...] 8:50 AM EST XR chest 1 view [[id number]] Collected: 06/07/222325 Order Status: Completed Updated: 06/07/222327 [...] disorder Medical Decision Making -Patient presents to [facility] ED from SNF on 06/08 with [...] MD Division of Hospitalist Medicine Inpatient Medical Services/[facility]: Epic chat .. [facility] [...] days Lab Units 06/18/22 0317 06/17/22 0438 06/16/228 SODIUM mmol/L 129* 130* 132* POTASSIUM mmol/L 3.8 3.7 4.0 CHLORIDE mmol/L 93* 95* 95* CO2 mmol/L 35* 33* 32* BUN mg/dL 22* 19 16 CREATININE mg/dL 0.88 0.82 0.80 GLUCOSE mg/dL 195* 181* 173* CALCIUM mg/dL 8.3* 8.0* 8.1* Results from last 7 days Lab Units 06/18/22 03106/17/22 0438 06/16/22317 WBC AUTO 10*3/uL 20.7* 19.8* 19.9* HEMOGLOBIN [...] from the original note were not included. [facility] Progress Note Moises Madrid AGE: [...] History: Diagnosis Date Anxiety Ataxia Bipolar disorder ([facility]) Chronic pain Constipation Contracture, right hand Depression Dysphagia Dysphagia Dysphonia Edema GERD (gastroesophageal reflux disease) Headache Hemiplegia (CMS/HCC) ([facility]) Hyperlipidemia Hypertension Insomnia Muscle weakness Neuropathy [...] mouth Nightly. cholecalciferol (Vitamin D3) 1.25 MG (13752 UT) tablet Take by mouth 1 (one) [...] Do not crush, chew, or split. HYDROcodone-acetaminophen ([place]) 5-325 MG tablet Take 1 tablet by [...] Apply topically if needed for dry skin. [place]-3 Fatty Acids (Fish Oil) 1000 MG capsule [...] miconazole powder BID [facility] after hospital discharge. I personally obtained the csatro and critical portions of the history and [...] own independent evaluation of this patient. .. [facility] Progress Note Subjective/ 61 y.o. 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 Nutrition Assessment: per MD-Interval History: More [...] On: Kcal/kg Weight Used for Energy Requirements: [place] Weight for Energy Calculation (kg): 86 kg Total Energy Requirements (kcals/day): 25--30 or 7791-1603 Weight Used for Protein Requirements: [place] Weight in Kg Used for Protein Requirements: 86 kg Estimated Total Protein (g/day): 1.0-1.2 or 86-103 Estimated Daily Total Fluid (ml/day): or per md Nutrition Related Findings: weak industrial custodian ,altered mental status,+2 bl;trace upper ,generalized edema-variable po, na 130, glu 181,lipase 1078,alb 3.1,nh3- 13-wounds improved, / bm Wound Type: Multiple, Deep Tissue Injury, Stage II, Moisture Associate Skin Damage (jennie 11-13 -dti buttock- r and left buttock, stage 2 toe,abd fold excoriation) Current Nutrition Therapies: Adult diet Dysphagia - Pureed; Mildly Thick ([place]); Low Fat (less than or equal to [...] (248-253 lbs) % Weight Change (Calculated): 2 [place] Body Weight (lbs) (Calculated): 190 lbs [place] Body Weight (Kg) (Calculated): 86 kg % [place] Body Weight (Calculated): 132.3 % BMI (kg/m2) (Calculated): 32.3 BMI Categories: Obese Class 1 (BMI 30.0-34.9) Nutrition Diagnosis: Inadequate protein-energy intake, Increased nutrient needs related to other (comment), acute injury/trauma, psychological cause or life stress (abscess with drain) as evidenced by wounds, reduced industrial custodian strength, poor intake prior to admission, intake [...] Oral Nutrition Supplement Eugenia Sauer RD Contact: *[phone] or [employer] chat Occupational Therapy Facility/Department: [facility] Occupational Therapy Treatment NAME: Moises Madrid : 1960 Date of Service: 06/17/2022 Discharge Recommendations: Subacute/Correction Facility Assessment Performance deficits / Impairments: Decreased [...] of right foot with fat layer exposed ([facility]) were also pertinent to this visit. has a past medical history of Anxiety, Ataxia, Bipolar disorder ([facility]), Chronic pain, Constipation, Contracture, right hand, [...] . >> nl.. ef=65 % Leucocytosis.>>20. Blood zjyir=792 mg. Gi consult reviewed. Very lethargic & [...] : GIB No Renal : CKD No VEGETABLE PREPARER : CVA/TIA No Musculoskeletal system : DJD [...] QT Interval 352 QTC Interval 479 P [place] 43 QRS [place] -36 T Wave [place] 60 ND Interval 160 Impression SINUS TACHYCARDIA LEFT AXIS [...] tachycardic, tachypneic and febrile SHELTON HERMAN M.D., [facility] 06/17/2022 [facility] - Surgery [facility] Physicians Surgery Patient Name: Moises Madrid Date: [...] chart review was performed. Remigio Napier MD [facility] General Surgery 12:57 PM 06/17/2022 GENERAL [...] intact Data: CBC: Recent Labs 06/15/22 0401 06/16/22 0318 06/17/22 0438 WBC 19.0* 19.9* 19.8* HGB 12.2* 12.6* 12.6* HCT 37.1* 37.8* 37.7* PLT 186 229 264 BMP: Recent Labs 06/15/22 0401 06/16/2231706/17/22437 NA 128* 132* 130* K 4.2 4.0 3.7 CL 95* 95* 95* CO2 33* 32* 33* BUN 10 16 19 CREATININE 0.81 0.80 0.82 GLUCOSE 175* 173* 181* Hepatic: Recent Labs 06/15/22 0401 06/16/2231706/17/22437 AST 29 36 35 ALT 26 25 [...] proceed with plan. Raimundo Riley APRN - HOME CARE PHYSICAL THERAPIST Images from the original note were not included. [facility] - Infectious Diseases Attending Progress Note Subjective: [...] Behavior: Behavior normal. Labs: Recent Labs 06/15/22 04006/16/2231706/17/22 0438 NA 128* 132* 130* K 4.2 4.0 3.7 CL 95* 95* 95* CO2 33* 32* 33* BUN 10 16 19 CREATININE 0.81 0.80 0.82 GLUCOSE 175* 173* 181* CALCIUM 8.0* 8.1* 8.0* PROT 6.0* 6.2* 6.5 BILITOT 0.6 0.7 0.6 ALKPHOS 111 114 117 AST 29 36 35 ALT 26 25 23 PROCAL -- 0.46* -- Recent Labs 06/15/22 0401 06/16/228 06/17/22 0438 WBC 19.0* 19.9* 19.8* HGB 12.2* 12.6* 12.6* HCT 37.1* 37.8* 37.7* PLT 186 229 264 LYMPHOPCT 6* 3* 5* MONOPCT 6 5 7 Procal 0.46 Crp 195.0 Lipase 1078 434 339 Micro: No results for input(s): COVID19 in the last 72 hours. 06/15/2022213006/17/2022 0401 Blood culture #2 - Suspected Infection [[id number]] Blood, Venous Preliminary result Component Value Blood Culture No growth at 24 hours P 06/15/2022 2105 06/17/2022 0401 Blood culture #1 - Suspected Infection [[id number]] Blood, Venous Preliminary result Component Value Blood Culture No growth at 24 hours P 06/15/2022 1011 06/17/2022 0933 Respiratory culture [[id number]] (Abnormal) Sputum Final result Component Value Respiratory culture Few respiratory vikram present. Gram Stain Result Moderate Polymorphonuclear leukocytes per low power field Abnormal Moderate Epithelial cells per low power field Abnormal Rare Gram positive cocci Abnormal Rare Gram negative diplococci Abnormal 06/15/2022 1010 06/15/2022 2127 Pneumonia PCR Panel [[id number]] (Abnormal) Sputum Final result Component Value Staphylococcus [...] 06/11/2022 1334 06/12/2022 0002 Pneumonia PCR Panel [[id number]] Sputum Final result Component Value Staphylococcus aureus [...] Detected 06/11/2022 1334 06/13/2022 0722 Respiratory culture [[id number]] Sputum Preliminary result Component Value Respiratory culture Rare respiratory vikram present. P Gram Stain Result Rare Epithelial cells per low power field P Moderate Polymorphonuclear leukocytes per low power field P No organisms seen P 06/10/2022 1433 06/13/2022 0924 Aerobic and Anaerobic Culture with Stain [[id number]] Abscess from Abdomen In process Component Value No component results 06/10/2022 1433 06/13/2022 0924 Culture, Aerobic Bacteria with Gram Stain [[id number]] Abscess from Abdomen Final result Component Value Culture No growth at 72 hours Gram Stain Result Rare Polymorphonuclear leukocytes per low power field No organisms seen Corrected result: Previously reported as Few Gram negative cocci (see Result History) on 06/11/2022 at 1209 EST 06/10/2022 1433 06/12/2022 1200 Anaerobic culture [[id number]] Abscess from Abdomen Preliminary result Component Value Culture No growth to date. Incubation continues P 06/10/2022 1243 06/10/2022 2302 Legionella and Streptococcus Urine Antigen [[id number]] Urine, Clean Catch Final result Component Value Legionella pneumophila Ag Not Detected Streptococcus pneumoniae Ag Not Detected 06/10/2022 1000 06/10/2022 1338 SARS-CoV-2 and Respiratory PCR Panel [[id number]] Swab from Nasopharynx Final result Component Value [...] 1401 Blood culture #1 - Suspected Infection [[id number]] Blood, Venous Preliminary result Component Value Blood Culture No growth at 72 hours P 06/10/2022 0958 06/13/2022 1401 Blood culture #2 - Suspected Infection [[id number]] Blood, Venous Preliminary result Component Value Blood Culture No growth at 72 hours P 06/07/2022 2345 06/08/2022 0035 SARS-CoV-2, Flu A/B, and RSV Combo [[id number]] Swab from Nasopharynx Final result Component Value SARS-CoV-2 Not Detected Respiratory Syncytial Virus Not Detected Influenza A Not Detected Influenza B Not Detected Lines: PIV site ok Radiography/Echo/Other: Reviewed CT abdomen pelvis w contrast [[id number]] Collected: 06/13/222204 Order Status: Completed Updated: 06/13/222220 Narrative: [facility] Name[facility] MOISES MADRID [facility] 1960 [id number] Exam Date/Time: 06/13/2022 17:39 Procedure: CT ABDOMEN [...] Component Value Units Date/Time US abdomen limited [[id number]] Collected: 06/13/22823 Order Status: Completed Updated: 06/13/22829 [...] negative sonographic Cole's sign reported by the mri technologist. Pancreas: Obscured by bowel gas. Right [...] 8:29 AM EST XR chest 1 view [[id number]] Collected: 06/12/22 1254 Order Status: Completed Updated: 06/12/22 1257 Narrative: Patient Name: MOISES MADRID : 1960 [id number] Exam Date/Time: 06/12/2022 12:43 Procedure: XR CHEST [...] PM EST XR foot 3+ views right [[id number]] Collected: 06/12/22 1250 Order Status: Completed Updated: [...] EST CT guided abscess fluid collection drainage [[id number]] Collected: 06/10/22 160 Order Status: Completed Updated: 06/10/22 1610 Narrative: Patient Name: MOISES MADRID : 1960 Exam Date/Time: 06/10/2022 14:50 Procedure: CT GUIDED ABSCESS FLUID COLLECTION DRAINAGE Ordering Provider: EDGAR JONATHAN Reason For Exam: PROCEDURE: Drainage catheter placement Procedural Personnel Attending physician(s): Jus Barlow Indication: Peripancreatic fluid collection Additional clinical history: None Complications: No immediate complications. Impression: Percutaneous placement of a 10 [place] drainage catheter into peripancreatic fluid collection, yielding [...] fluid collection - Drainage catheter placed: 10 [place] APD - External catheter securement: Non-absorbable suture [...] EST CT abdomen pelvis wo IV contrast [[id number]] Collected: 06/10/22914 Order Status: Completed Updated: 06/10/22930 Narrative: Patient Name: MOISES MADRID : 1960 [id number] Exam Date/Time: 06/10/2022 08:50 Procedure: CT ABDOMEN [...] 9:30 AM EST XR chest 1 view [[id number]] Collected: 06/10/22843 Order Status: Completed Updated: 06/10/22850 Narrative: Patient Name: MOISES MADRID DOB: 1960 Exam Date/Time: 06/10/2022 08:36 Procedure: XR [...] 8:50 AM EST XR chest 1 view [[id number]] Collected: 06/07/222325 Order Status: Completed Updated: 06/07/222327 [...] were not included. Hospitalist Progress Note 06/17/2022 [phone]: Please page me ([phone]) for patient care issues. [phone]: Please page [facility] Hospitalist for any issues. Subjective: Admit Date: 06/07/2022 PCP: Demetrius Fenton Room#: 232-06/232-06 A Interval History: More alert this am. AO x 3 on exam. Feels slightly better but remains acutely ill. Adult diet Dysphagia - Pureed; Moderately Thick ([place]); Low Fat (less than or equal to 50 gm/day) @[id number]@ 24HR INTAKE/OUTPUT: Intake/Output Summary (Last 24 hours) [...] (traumatic brain injury) LABS: CBC: Recent Labs 06/15/2240006/16/2231706/17/22437 WBC 19.0* 19.9* 19.8* RBC 4.03* 4.11* [...] 0* 5 2* LIVER PROFILE: Recent Labs 06/15/2240006/16/2231706/17/22437 AST 29 36 35 [...] (last 21 days) XR chest 1 view [[id number]] Collected: 06/16/22427 Order Status: Completed Updated: 06/16/22516 Narrative: Patient Name: MOISES MADRID : 1960 [id number] Exam Date/Time: 06/16/2022 05:16 Procedure: XR CHEST [...] 4:29 AM EST XR chest 1 view [[id number]] Collected: 06/15/22 1132 Order Status: Completed Updated: 06/15/22 1134 Narrative: Patient Name: MOISES MADRID : [...] Units Date/Time CT abdomen pelvis w contrast [[id number]] Collected: 06/13/222204 Order Status: Completed Updated: 06/13/222220 Narrative: Patient Name: MOISES MADRID : 1960 Exam Date/Time: 06/13/2022 17:39 Procedure: CT ABDOMEN PELVIS W CONTRAST Ordering Provider: DEGAR JONATHAN Reason For Exam: Abdominal pain, acute, [...] 06/13/2022 10:20 PM EST US abdomen limited [[id number]] Collected: 06/13/22823 Order Status: Completed Updated: 06/13/22829 Narrative: Patient Name: MOISES MADRID : 1960 [id number] Exam Date/Time: 06/13/2022 07:20 Procedure: US ABDOMEN [...] negative sonographic Cole's sign reported by the mri technologist. Pancreas: Obscured by bowel gas. Right [...] 8:29 AM EST XR chest 1 view [[id number]] Collected: 06/12/22 1254 Order Status: Completed Updated: 06/12/22 1257 Narrative: Patient Name: MOISES MADRID : 1960 [id number] Exam Date/Time: 06/12/2022 12:43 Procedure: XR CHEST [...] PM EST XR foot 3+ views right [[id number]] Collected: 06/12/22 1250 Order Status: Completed Updated: [...] EST CT guided abscess fluid collection drainage [[id number]] Collected: 06/10/22 1607 Order Status: Completed Updated: 06/10/22 161 Narrative: Patient Name: MOISES MADRID : 1960 Exam Date/Time: 06/10/2022 14:50 Procedure: CT GUIDED ABSCESS FLUID COLLECTION DRAINAGE Ordering Provider: EDGAR JONATHAN Reason For Exam: PROCEDURE: Drainage catheter placement Procedural Personnel Attending physician(s): Jus Barlow Indication: Peripancreatic fluid collection Additional clinical history: None Complications: No immediate complications. Impression: Percutaneous placement of a 10 [place] drainage catheter into peripancreatic fluid collection, yielding [...] fluid collection - Drainage catheter placed: 10 [place] APD - External catheter securement: Non-absorbable suture [...] EST CT abdomen pelvis wo IV contrast [[id number]] Collected: 06/10/22914 Order Status: Completed Updated: 06/10/22930 [...] 9:30 AM EST XR chest 1 view [[id number]] Collected: 06/10/2244 Order Status: Completed Updated: 06/10/22850 [...] 8:50 AM EST XR chest 1 view [[id number]] Collected: 06/07/222325 Order Status: Completed Updated: 06/07/222327 [...] disorder Medical Decision Making -Patient presents to [facility] ED from SNF on 06/08 with [...] MD Division of Hospitalist Medicine Inpatient Medical Services/[facility]: [employer] chat Pharmacy Note Vancomycin 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 year [...] Will continue to follow. Speech-Language Pathology Facility/Department: [facility] DYSPHAGIA TREATMENT NAME: Moises Madrid [...] study Therapeutic Interventions: Therapeutic PO trials with HONEY PROCESSOR, Patient/Family education Treatment/Goals Encounter Problems Encounter Problems [...] study for further assessment. Treatment Plan Requires HONEY PROCESSOR Intervention: Yes Frequency/Duration: Frequency of Treatment: 3 days/wk for Duration of Treatment: 2 weeks Therapy Time HONEY PROCESSOR Individual Minutes Time In: 1515 Time Out: 1530 Minutes: 15 ALISHA Ayala student 06/16/2022 3:41 PM Cardiology Progress Note Patient Name: Moises Madrid Patient Age: 61 y.o. Date: 06/16/2022 SUBJECTIVE: pt. In isolation Sob.c/o abd. Pain. No cp. PANCREATITIS. CHOLECYSTITIS. RENAL STONE, Stress . >> nl.. ef=65 % Leucocytosis.>>20. Blood sggrn=785 mg. Gi consult reviewed. Very lethargic & [...] : GIB No Renal : CKD No VEGETABLE PREPARER : CVA/TIA No Musculoskeletal system : DJD [...] QT Interval 352 QTC Interval 479 P [place] 43 QRS [place] -36 T Wave [place] 60 ND Interval 160 Impression SINUS TACHYCARDIA LEFT AXIS [...] and febrile SHELTON HERMAN M.D., FACC 06/16/2022 [facility] - Surgery [facility] Physicians Surgery Patient Name: Moises Madrid Date: [...] chart review was performed. Remigio Napier MD [facility] General Surgery 7:43 PM 06/16/2022 GENERAL [...] and intact Data: CBC: Recent Labs 06/14/2222506/15/2240006/16/22 0318 WBC 18.7* 19.0* 19.9* HGB 12.2* 12.2* 12.6* HCT 36.3* 37.1* 37.8* PLT 166 186 229 BMP: Recent Labs 06/14/2222506/15/22 04006/16/22 0318 NA 127* 128* 132* K 4.2 4.2 4.0 CL 98 95* 95* CO2 32* 33* 32* BUN 8* 10 16 CREATININE 0.71 0.81 0.80 GLUCOSE 171* 175* 173* Hepatic: Recent Labs 06/14/2222506/15/2240006/16/22317 AST 41 29 36 [...] proceed with plan. Raimundo Riley APRN - HOME CARE PHYSICAL THERAPIST .. [facility] Progress Note Subjective/ 61 y.o. year old male who we are seeing in consultation for Hyponatremia. KOBE Recently given Narcan 2/2 unresponsiveness Awakens to [...] 113 (!) 116 (!) 111 Resp: 19 Temp: 37.9 C (100.2 F) 37.9 [...] from last 7 days Lab Units 06/16/2231706/15/22 04006/14/22 022 SODIUM mmol/L 132* 128* 127* POTASSIUM mmol/L 4.0 4.2 4.2 CHLORIDE mmol/L 95* 95* 98 CO2 mmol/L 32* 33* 32* BUN mg/dL 16 10 8* CREATININE mg/dL 0.80 0.81 0.71 GLUCOSE mg/dL 173* 175* 171* CALCIUM mg/dL 8.1* 8.0* 7.9* Results from last 7 days Lab Units 06/16/2231706/15/2240006/14/22225 WBC AUTO 10*3/uL 19.9* 19.0* 18.7* HEMOGLOBIN [...] follow closely with you Zeynep Wyatt APRN, HOME CARE PHYSICAL THERAPIST [facility], [facility] [phone] Patient seen and examined. Agree with above A and p. Hyponatremia starting to improve. Encourage magic cup/protein drinks. C/w FR. Will follow. Images from the original note were not included. Hospitalist Progress Note 06/16/[id number]: Please page me ([phone]) for patient care issues. [phone]: Please page [facility] Hospitalist for any issues. Subjective: Admit Date: 06/07/2022 PCP: Demetrius Fenton Room#: 232-06/232-06 A Interval History: Overnight, patient febrile. On evaluation this am, patient more lethargic and AO x 0. Not following commands. Vitals are more tachycardic and tachyphenic. Worse compared to yesterday. Adult diet Dysphagia - Pureed; Moderately Thick (Honey); Low Fat (less than or equal to 50 gm/day) @[id number]@ 24HR INTAKE/OUTPUT: Intake/Output Summary (Last 24 hours) at 06/16/2022 0747 Last data filed at 06/16/2022 0635 Gross per 24 hour Intake 613 ml Output 4000 ml Net -3387 ml Past Medical History: Past Medical History: Diagnosis Date Anxiety Ataxia Bipolar disorder (HCC) Chronic pain Constipation Contracture, right hand Depression Dysphagia Dysphagia Dysphonia Edema GERD (gastroesophageal reflux disease) Headache Hemiplegia (CMS/HCC) ([facility]) Hyperlipidemia Hypertension Insomnia Muscle weakness Neuropathy TBI (traumatic brain injury) LABS: CBC: Recent Labs 06/14/22 0226 06/15/22 0401 06/16/22 0318 WBC 18.7* 19.0* 19.9* RBC 3.98* 4.03* [...] -3* 0* 5 LIVER PROFILE: Recent Labs 06/14/2222506/15/22 0401 06/16/228 AST 41 29 36 ALT 36 26 [...] (last 21 days) XR chest 1 view [[id number]] Collected: 06/16/22 0428 Order Status: Completed Updated: [...] 4:29 AM EST XR chest 1 view [[id number]] Collected: 06/15/22 1132 Order Status: Completed Updated: [...] Units Date/Time CT abdomen pelvis w contrast [[id number]] Collected: 06/13/222204 Order Status: Completed Updated: 06/13/222220 Narrative: [facility] MOIS[facility]ID [facility] 1960 [id number] Exam Date/Time: 06/13/2022 17:39 Procedure: CT ABDOMEN [...] 06/13/2022 10:20 PM EST US abdomen limited [[id number]] Collected: 06/13/22823 Order Status: Completed Updated: 06/13/22829 Narrative: Patient Name: MOISES MADRID : 1960 [id number] Exam Date/Time: 06/13/2022 07:20 Procedure: US ABDOMEN [...] negative sonographic Cole's sign reported by the mri technologist. Pancreas: Obscured by bowel gas. Right [...] 8:29 AM EST XR chest 1 view [[id number]] Collected: 06/12/22 1254 Order Status: Completed Updated: [...] PM EST XR foot 3+ views right [[id number]] Collected: 06/12/22 1250 Order Status: Completed Updated: [...] EST CT guided abscess fluid collection drainage [[id number]] Collected: 06/10/22 160 Order Status: Completed Updated: 06/10/22 1610 Narrative: Patient Name: MOISES MADRID : 1960 Exam Date/Time: 06/10/2022 14:50 Procedure: CT GUIDED ABSCESS FLUID COLLECTION DRAINAGE Ordering Provider: EDGAR JONATHAN Reason For Exam: PROCEDURE: Drainage catheter placement Procedural Personnel Attending physician(s): Jus Barlow Indication: Peripancreatic fluid collection Additional clinical history: None Complications: No immediate complications. Impression: Percutaneous placement of a 10 [place] drainage catheter into peripancreatic fluid collection, yielding [...] fluid collection - Drainage catheter placed: 10 [place] APD - External catheter securement: Non-absorbable suture [...] EST CT abdomen pelvis wo IV contrast [[id number]] Collected: 06/10/22914 Order Status: Completed Updated: 06/10/22930 Narrative: Patient Name: MOISES MADRID : 1960 [facility]#: [id number] Exam Date/Time: 06/10/2022 08:50 Procedure: CT ABDOMEN [...] 9:30 AM EST XR chest 1 view [[id number]] Collected: 06/10/22843 Order Status: Completed Updated: 06/10/22850 [...] 8:50 AM EST XR chest 1 view [[id number]] Collected: 06/07/222325 Order Status: Completed Updated: 06/07/222327 [...] disorder Medical Decision Making -Patient presents to [facility] ED from SNF on 06/08 with [...] and ICU consulted. Discussed the case with unit leader Dr. Rachel and resident physician Dr. Donovan [...] MD Division of Hospitalist Medicine Inpatient Medical Services/[facility]: Epic chat Images from the original note were not included. [facility] - Infectious Diseases Attending Progress Note Subjective: [...] Behavior: Behavior normal. Labs: Recent Labs 06/13/22 0329 06/14/22 0226 06/15/22 [...] hours. Collected Updated Procedure Result Status 06/11/2022 13306/12/2022 0002 Pneumonia PCR Panel [[id number]] Sputum Final result Component Value Staphylococcus aureus [...] Detected 06/11/2022 1334 06/13/2022 0722 Respiratory culture [[id number]] Sputum Preliminary result Component Value Respiratory culture Rare respiratory vikram present. P Gram Stain Result Rare Epithelial cells per low power field P Moderate Polymorphonuclear leukocytes per low power field P No organisms seen P 06/10/2022 1433 06/13/2022 0924 Aerobic and Anaerobic Culture with Stain [[id number]] Abscess from Abdomen In process Component Value No component results 06/10/2022 1433 06/13/2022 0924 Culture, Aerobic Bacteria with Gram Stain [[id number]] Abscess from Abdomen Final result Component Value Culture No growth at 72 hours Gram Stain Result Rare Polymorphonuclear leukocytes per low power field No organisms seen Corrected result: Previously reported as Few Gram negative cocci (see Result History) on 06/11/2022 at 1209 EST 06/10/2022 1433 06/12/2022 1200 Anaerobic culture [[id number]] Abscess from Abdomen Preliminary result Component Value Culture No growth to date. Incubation continues P 06/10/2022 1243 06/10/2022 2302 Legionella and Streptococcus Urine Antigen [[id number]] Urine, Clean Catch Final result Component Value Legionella pneumophila Ag Not Detected Streptococcus pneumoniae Ag Not Detected 06/10/2022 1000 06/10/2022 1338 SARS-CoV-2 and Respiratory PCR Panel [[id number]] Swab from Nasopharynx Final result Component Value [...] 1401 Blood culture #1 - Suspected Infection [[id number]] Blood, Venous Preliminary result Component Value Blood Culture No growth at 72 hours P 06/10/2022 0958 06/13/2022 1401 Blood culture #2 - Suspected Infection [[id number]] Blood, Venous Preliminary result Component Value Blood Culture No growth at 72 hours P 06/07/2022 2345 06/08/2022 0035 SARS-CoV-2, Flu A/B, and RSV Combo [[id number]] Swab from Nasopharynx Final result Component Value SARS-CoV-2 Not Detected Respiratory Syncytial Virus Not Detected Influenza A Not Detected Influenza B Not Detected Lines: PIV site ok Radiography/Echo/Other: Reviewed CT abdomen pelvis w contrast [[id number]] Collected: 06/13/222204 Order Status: Completed Updated: 06/13/222220 Narrative: Patient Name: MOISES MADRID : 1960 [id number] Exam Date/Time: 06/13/2022 17:39 Procedure: CT ABDOMEN [...] Component Value Units Date/Time US abdomen limited [[id number]] Collected: 06/13/22823 Order Status: Completed Updated: 06/13/22829 [...] negative sonographic Cole's sign reported by the mri technologist. Pancreas: Obscured by bowel gas. Right [...] 8:29 AM EST XR chest 1 view [[id number]] Collected: 06/12/22 1254 Order Status: Completed Updated: [...] PM EST XR foot 3+ views right [[id number]] Collected: 06/12/22 1250 Order Status: Completed Updated: [...] EST CT guided abscess fluid collection drainage [[id number]] Collected: 06/10/22 160 Order Status: Completed Updated: 06/10/221609 Narrative: Patient Name: MOISES MADRID : 1960 Exam Date/Time: 06/10/2022 14:50 Procedure: CT GUIDED ABSCESS FLUID COLLECTION DRAINAGE Ordering Provider: EDGAR JONATHAN Reason For Exam: PROCEDURE: Drainage catheter placement Procedural Personnel Attending physician(s): Jus Barlow Indication: Peripancreatic fluid collection Additional clinical history: None Complications: No immediate complications. Impression: Percutaneous placement of a 10 [place] drainage catheter into peripancreatic fluid collection, yielding [...] fluid collection - Drainage catheter placed: 10 [place] APD - External catheter securement: Non-absorbable suture [...] EST CT abdomen pelvis wo IV contrast [[id number]] Collected: 06/10/22914 Order Status: Completed Updated: 06/10/22930 Narrative: Patient Name: MOISES MADRID : 1960 [id number] Exam Date/Time: 06/10/2022 08:50 Procedure: CT ABDOMEN [...] 9:30 AM EST XR chest 1 view [[id number]] Collected: 06/10/22843 Order Status: Completed Updated: 06/10/22850 Narrative: Patient Name: MOISES MADRID : 1960 [id number] Exam Date/Time: 06/10/2022 08:36 Procedure: XR CHEST [...] 8:50 AM EST XR chest 1 view [[id number]] Collected: 06/07/222325 Order Status: Completed Updated: 06/07/222327 [...] EST Antimicrobials, Start/End Dates: Pip/tazo 06/10-7 Vanco /5 Ceftr 06/10 Azithro / Erta 06/14- Impression: Sepsis (fever, worsening leukocytosis, [...] accounting for open encounter. Speech-Language Pathology Facility/Department: [facility] DYSPHAGIA TREATMENT NAME: Moises Madrid [...] appropriate with this diet. Treatment Plan Requires HONEY PROCESSOR Intervention: Yes Frequency/Duration: Frequency of Treatment: 3 days/wk for Duration of Treatment: 2 weeks Therapy Time HONEY PROCESSOR Individual Minutes Time In: 1442 Time Out: 1513 Minutes: 31 ALISHA Canchola 06/15/2022 3:32 PM Physical Therapy Facility/Department: [facility] Physical Therapy Daily Treatment Note NAME: Moises Madrid : 1960 Date of Service: 06/15/2022 Discharge Recommendations: Subacute/Correction Facility PT Equipment Recommendations Equipment Needed: (TBD [...] of right foot with fat layer exposed ([facility]) were also pertinent to this visit. [...] act) Jessica Lott PTA Occupational Therapy Facility/Department: [facility] Occupational Therapy Treatment NAME: Moises Madrid : 1960 Date of Service: 06/15/2022 Discharge Recommendations: Subacute/Correction Facility Assessment Performance deficits / Impairments: Decreased [...] 24 Minutes (FA x2) Deja Saeed OT [facility] - Surgery [facility] Physicians Surgery Patient Name: Moises Madrid Date: [...] chart review was performed. Remigio Napier MD [facility] General Surgery 2:30 PM 06/15/2022 GENERAL [...] GLUCOSE 189* 171* 175* Hepatic: Recent Labs 06/13/2232806/14/22 0226 06/15/22 0401 AST 35 41 29 [...] . >> nl.. ef=65 % Leucocytosis.>>20. Blood jduvy=680 mg. Gi consult reviewed. No cp. VITALS [...] : GIB No Renal : CKD No VEGETABLE PREPARER : CVA/TIA No Musculoskeletal system : DJD [...] QT Interval 352 QTC Interval 479 P [place] 43 QRS [place] -36 T Wave [place] 60 ND Interval 160 Impression SINUS TACHYCARDIA LEFT AXIS DEVIATION LATE PRECORDIAL R/S TRANSITION LEFT VENTRICULAR HYPERTROPHY Electronically Signed On 06-10-2022 9:55:05 EST by Dimple Howellmehan Echo: Transthoracic echocardiogram (TTE) complete with contrast, [...] Troponin=0.012. ekg no change, SHELTON HERMAN M.D., [facility] 06/15/2022 Images from the original note were not included. Hospitalist Progress Note 06/15/2022 [phone]: Please page me ([phone]) for patient care issues. [phone]: Please page [facility] Hospitalist for any issues. Subjective: Admit [...] (less than or equal to 50 gm/day) @[id number]@ 24HR INTAKE/OUTPUT: Intake/Output Summary (Last 24 hours) [...] brain injury) LABS: CBC: Recent Labs 06/13/2232806/14/2222506/15/22 0401 WBC 14.4* 18.7* 19.0* RBC 3.86* [...] Units Date/Time CT abdomen pelvis w contrast [[id number]] Collected: 06/13/222204 Order Status: Completed Updated: 06/13/222220 Narrative: Patient Name: MOISES MADRID : 1960 [id number] Exam Date/Time: 06/13/2022 17:39 Procedure: CT ABDOMEN [...] Date/Time: 06/13/2022 10:20 PM EST abdomen limited [[id number]] Collected: 06/13/22823 Order Status: Completed Updated: 06/13/22829 [...] negative sonographic Cole's sign reported by the mri technologist. Pancreas: Obscured by bowel gas. Right [...] 8:29 AM EST XR chest 1 view [[id number]] Collected: 06/12/22 1254 Order Status: Completed Updated: 06/12/22 1257 Narrative: Patient Name: MOISES MADRID : 1960 [id number] Exam Date/Time: 06/12/2022 12:43 Procedure: XR CHEST [...] PM EST XR foot 3+ views right [[id number]] Collected: 06/12/22 1250 Order Status: Completed Updated: [...] EST CT guided abscess fluid collection drainage [[id number]] Collected: 06/10/22 1607 Order Status: Completed Updated: 06/10/22 1610 Narrative: Patient Name: MOISES MADRID : 1960 Exam Date/Time: 06/10/2022 14:50 Procedure: CT GUIDED ABSCESS FLUID COLLECTION DRAINAGE Ordering Provider: EDGAR JONATHAN Reason For Exam: PROCEDURE: Drainage catheter placement Procedural Personnel Attending physician(s): Jus Barlow Indication: Peripancreatic fluid collection Additional clinical history: None Complications: No immediate complications. Impression: Percutaneous placement of a 10 [place] drainage catheter into peripancreatic fluid collection, yielding [...] fluid collection - Drainage catheter placed: 10 [place] APD - External catheter securement: Non-absorbable suture [...] EST CT abdomen pelvis wo IV contrast [[id number]] Collected: 06/10/22914 Order Status: Completed Updated: 06/10/22930 Narrative: Patient Name: MOISES MADRID : 1960 [id number] Exam Date/Time: 06/10/2022 08:50 Procedure: CT ABDOMEN [...] 9:30 AM EST XR chest 1 view [[id number]] Collected: 06/10/22843 Order Status: Completed Updated: 06/10/22850 [...] 8:50 AM EST XR chest 1 view [[id number]] Collected: 06/07/222325 Order Status: Completed Updated: 06/07/222327 [...] disorder Medical Decision Making -Patient presents to [facility] ED from SNF on 06/08 with [...] MD Division of Hospitalist Medicine Inpatient Medical Services/[facility]: Epic chat Speech-Language Pathology Facility/Department: [place] [address] DYSPHAGIA TREATMENT NAME: Moises Madrid : 1960 [...] P: continue dysphagia POC. Treatment Plan Requires HONEY PROCESSOR Intervention: Yes Frequency/Duration: Frequency of Treatment: 3 days/wk for Duration of Treatment: 2 weeks Therapy Time HONEY PROCESSOR Individual Minutes Time In: 1435 Time Out: 1457 Minutes: 22 ALISHA Canchola 06/14/2022 3:41 PM Images from the original note were not included. [facility] - Infectious Diseases Attending Progress Note Subjective: [...] Behavior normal. Labs: Recent Labs 06/12/22 0358 06/13/22 0329 06/14/22 0226 NA 129* 129* 127* K 4.1 4.0 4.2 CL 104 100 98 CO2 27 29 32* BUN 11 8* 8* CREATININE 0.84 0.76 0.71 GLUCOSE 140* 189* 171* CALCIUM 7.0* 7.3* 7.9* PROT 5.2* 5.6* 5.9* BILITOT 1.1 0.8 0.7 ALKPHOS 67 77 106 AST 29 35 41 ALT 17 26 36 PROCAL -- -- 0.47* Recent Labs 06/12/22 0358 06/13/22 0329 06/14/22 [...] 06/11/2022 1334 06/12/2022 0002 Pneumonia PCR Panel [[id number]] Sputum Final result Component Value Staphylococcus aureus [...] Detected 06/11/2022 1334 06/13/2022 0722 Respiratory culture [[id number]] Sputum Preliminary result Component Value Respiratory culture Rare respiratory vikram present. P Gram Stain Result Rare Epithelial cells per low power field P Moderate Polymorphonuclear leukocytes per low power field P No organisms seen P 06/10/2022 1433 06/13/2022 0924 Aerobic and Anaerobic Culture with Stain [[id number]] Abscess from Abdomen In process Component Value No component results 06/10/2022 1433 06/13/2022 0924 Culture, Aerobic Bacteria with Gram Stain [[id number]] Abscess from Abdomen Final result Component Value Culture No growth at 72 hours Gram Stain Result Rare Polymorphonuclear leukocytes per low power field No organisms seen Corrected result: Previously reported as Few Gram negative cocci (see Result History) on 06/11/2022 at 1209 EST 06/10/2022 1433 06/12/2022 1200 Anaerobic culture [[id number]] Abscess from Abdomen Preliminary result Component Value Culture No growth to date. Incubation continues P 06/10/2022 1243 06/10/2022 2302 Legionella and Streptococcus Urine Antigen [[id number]] Urine, Clean Catch Final result Component Value Legionella pneumophila Ag Not Detected Streptococcus pneumoniae Ag Not Detected 06/10/2022 1000 06/10/2022 1338 SARS-CoV-2 and Respiratory PCR Panel [[id number]] Swab from Nasopharynx Final result Component Value [...] 1401 Blood culture #1 - Suspected Infection [[id number]] Blood, Venous Preliminary result Component Value Blood Culture No growth at 72 hours P 06/10/2022 0958 06/13/2022 1401 Blood culture #2 - Suspected Infection [[id number]] Blood, Venous Preliminary result Component Value Blood Culture No growth at 72 hours P 06/07/2022 2345 06/08/2022 0035 SARS-CoV-2, Flu A/B, and RSV Combo [[id number]] Swab from Nasopharynx Final result Component Value SARS-CoV-2 Not Detected Respiratory Syncytial Virus Not Detected Influenza A Not Detected Influenza B Not Detected Lines: PIV site ok Radiography/Echo/Other: Reviewed CT abdomen pelvis w contrast [[id number]] Collected: 06/13/222204 Order Status: Completed Updated: 06/13/222220 Narrative: Patient Name: MOISES MADRID : 1960 [facility]#: [id number] Exam Date/Time: 06/13/2022 17:39 Procedure: CT ABDOMEN [...] Component Value Units Date/Time US abdomen limited [[id number]] Collected: 06/13/22823 Order Status: Completed Updated: 06/13/22829 [...] negative sonographic Cole's sign reported by the mri technologist. Pancreas: Obscured by bowel gas. Right [...] 8:29 AM EST XR chest 1 view [[id number]] Collected: 06/12/22 1254 Order Status: Completed Updated: [...] PM EST XR foot 3+ views right [[id number]] Collected: 06/12/22 125 Order Status: Completed Updated: [...] EST CT guided abscess fluid collection drainage [[id number]] Collected: 06/10/22 1607 Order Status: Completed Updated: 06/10/221609 Narrative: Patient Name: MOISES MADRID : 1960 Exam Date/Time: 06/10/2022 14:50 Procedure: CT GUIDED ABSCESS FLUID COLLECTION DRAINAGE Ordering Provider: EDGAR JONATHAN Reason For Exam: PROCEDURE: Drainage catheter placement Procedural Personnel Attending physician(s): Jus Barlow Indication: Peripancreatic fluid collection Additional clinical history: None Complications: No immediate complications. Impression: Percutaneous placement of a 10 [place] drainage catheter into peripancreatic fluid collection, yielding [...] fluid collection - Drainage catheter placed: 10 [place] APD - External catheter securement: Non-absorbable suture [...] EST CT abdomen pelvis wo IV contrast [[id number]] Collected: 06/10/22914 Order Status: Completed Updated: 06/10/22930 [...] 9:30 AM EST XR chest 1 view [[id number]] Collected: 06/10/22843 Order Status: Completed Updated: 06/10/22850 [...] 8:50 AM EST XR chest 1 view [[id number]] Collected: 06/07/222325 Order Status: Completed Updated: 06/07/222327 Narrative: [facility] MOISES [facility]ADRID [facility] 1960 [id number] Exam Date/Time: 06/07/2022 23:25 Procedure: XR CHEST [...] reviewed with the patient. CBC: Recent Labs 06/12/228 06/13/2232806/14/22225 WBC 11.9* [...] from the original note were not included. [facility] Progress Note Moises Madrid AGE: [...] mouth Nightly. cholecalciferol (Vitamin D3) 1.25 MG (49915 UT) tablet Take by mouth 1 (one) [...] Do not crush, chew, or split. HYDROcodone-acetaminophen ([place]) 5-325 MG tablet Take 1 tablet by [...] Apply topically if needed for dry skin. [place]-3 Fatty Acids (Fish Oil) 1000 MG capsule [...] toes - cleanse with antibacterial soap/water, leave TERMITE TREATER HELPER PVR ordered-completed - see 06/11/22 Vascular study results Venous insufficiency Elevate legs as much as possible Right posterior thigh Moisture associated skin damage from friction and other body fluids. - ET mix , xeroform and ABD pad. BID . Left post thigh and perineum - ET mix BID . Intertrigo, abdominal fold - miconazole powder BID [facility] at [facility] after hospital discharge. Thank you for the [...] my own independent evaluation of this patient. [facility] - Surgery [facility] Physicians Surgery Patient Name: Moises Madrid Date: [...] chart review was performed. Remigio Napier MD [facility] General Surgery 2:38 PM 06/14/2022 GENERAL [...] GLUCOSE 140* 189* 171* Hepatic: Recent Labs 06/12/2235706/13/2232806/14/22225 AST 29 35 41 [...] note were not included. Hospitalist Progress Note 06/14/20226993947-3412: Please page me ([phone]) for patient care issues. [phone]: Please page [facility] Hospitalist for any issues. Subjective: Admit [...] (less than or equal to 50 gm/day) @[id number]@ 24HR INTAKE/OUTPUT: Intake/Output Summary (Last 24 hours) [...] -3* 0* -3* LIVER PROFILE: Recent Labs 06/12/22 0358 06/13/22 0329 06/14/22 [...] Units Date/Time CT abdomen pelvis w contrast [[id number]] Collected: 06/13/222204 Order Status: Completed Updated: 06/13/222220 Narrative: Patient Name: MOISES MADRID : 1960 [facility]#: [id number] Exam Date/Time: 06/13/2022 17:39 Procedure: CT ABDOMEN [...] 06/13/2022 10:20 PM EST US abdomen limited [[id number]] Collected: 06/13/22823 Order Status: Completed Updated: 06/13/22829 Narrative: [facility] 1960 [id number] Exam Date/Time: 06/13/2022 07:20 Procedure: US ABDOMEN [...] negative sonographic Cole's sign reported by the mri technologist. Pancreas: Obscured by bowel gas. Right [...] 8:29 AM EST XR chest 1 view [[id number]] Collected: 06/12/22 1254 Order Status: Completed Updated: [...] PM EST XR foot 3+ views right [[id number]] Collected: 06/12/22 1250 Order Status: Completed Updated: [...] EST CT guided abscess fluid collection drainage [[id number]] Collected: 06/10/22 160 Order Status: Completed Updated: 06/10/22 161 Narrative: Patient Name: MOISES MADRID : 1960 Exam Date/Time: 06/10/2022 14:50 Procedure: CT GUIDED ABSCESS FLUID COLLECTION DRAINAGE Ordering Provider: EDGAR JONATHAN Reason For Exam: PROCEDURE: Drainage catheter placement Procedural Personnel Attending physician(s): Jus Barlow Indication: Peripancreatic fluid collection Additional clinical history: None Complications: No immediate complications. Impression: Percutaneous placement of a 10 South African drainage catheter into peripancreatic fluid collection, yielding [...] fluid collection - Drainage catheter placed: 10 South African APD - External catheter securement: Non-absorbable suture [...] EST CT abdomen pelvis wo IV contrast [[id number]] Collected: 06/10/22914 Order Status: Completed Updated: 06/10/22930 Narrative: [facility] Name: MOISES [facility]ADRID [facility] 1960 [id number] Exam Date/Time: 06/10/2022 08:50 Procedure: CT ABDOMEN [...] Somewhat limited evaluation of the GI tract [facility] 06-23-2022 Miscellaneous Notes S/W, follow up Patient discharged back to [facility] Orders sent via Careport to facility. Transport set via [facility] at incident response specialist provided report number. Patient aware of transport today. Chart reviewed. Patient remains in HICU for treatment of SIRS and acute pancreatitis with abscess s/p percutaneous drain. ID signed off. Drained removed 06/21. Surgery signed off. HONEY PROCESSOR following for dysphagia. 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 SW following. Anticipate discharge today. Images from the original note were not included. Care Management Progress Note - Discharge Expected Date/Time: 06/21/[address] discharge order Complete med reconciliation Request transport Case mgmt discharge readiness HONEY PROCESSOR discharge readiness Expected Discharge History Expected Date/Time Set By Reviewed At 06/21/2022 Yesseina Couch RN 06/20/2022 10:10 AM 06/16/2022 Yessenia [...] but is improving. Discharge plan return to [facility] when medically stable. Images from the original [...] remain stagnant-Strict I&O. Pt can return to [facility] at discharge. He does not need insurance auth. He will need COVID screen & completed & signed EARNEST. S/W, follow up Updates sent to [facility]. Patient able to return anytime. S/W to follow for DC. Images from the original note were not included. Care Management Progress Note - Discharge Expected Date/Time: 06/21/[address] discharge order Complete med reconciliation Request transport Case mgmt discharge readiness HONEY PROCESSOR discharge readiness Expected Discharge History Expected Date/Time [...] prior to discharge. T can return to [facility] at discharge. He does not need insurance auth. He will need COVID screen & completed & signed EARNEST. S/W, follow up Updates sent via [facility]port to [facility]. I did call [facility], they can accept the patient over the weekend if ready for DC, he is care home there but can skill him under his [...] Hospitalist service for now. Discussed with nursing supervisor packing room, bedside nurse and ICU team. Asia Nelson MD Division of Hospitalist Medicine [facility] 10:24 AM 06/16/22 S/W, follow up Updates sent via [facility]port to [facility]. Facility may be able to re-skill the patient. S/W to follow for DC. Length of Stay: 7 Anticipated date of discharge: 06/16/2022 Medical Plan of Care: ID-Follow inflammatory markers after 48h on 06/16. Substitute ertapenem for pip/tazo for 5 days. Check valproic acid level.General surgery & GI following. Continue drain mgmt- may be able to remove in coming day. DC Disposition: [facility]-care home Discharge Barriers: Medical stability. Surgery is recommending to continue drain . Per CT of abdomen 06/13 near complete resolution of focal fluid noted. GI has signed off. Remains on IV antibiotics. Sodium down 127. WBC 18.7 today. Discharge plan remains to return to [facility] when medically stable. 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 Patient today with increased abdominal pain, possible drain for peripancreatic fluid, likely infected. S/W to follow. S/W, follow up [facility] indicated patient is a care home bed hold at the facility. I am clarifying if they need insurance approval or not. Patient with Stress Test today. S/W to follow. Discharge plan is return to [facility] when medically stable. Cardiology consult pending. Vascular us of lower extremities pending. Echo completed but no report in computer at this time. 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 S/W, follow up Patient in from [facility]. Referral placed in Careport inquiring on needs [...] of chest pain. Patient resides in a usp . Patient presents to the Ed due [...] and management during his stay here at [facility]: # SIRS # Acute pancreatitis with [...] and now on RA. # Dysphagia - HONEY PROCESSOR following. Recommended Minced and Moist (Dysphagia II), Liquid Consistency Mildly Thick ([place]) # Coronavirus positive - per ID, No [...] 81 MG EC tablet cholecalciferol 1.25 MG (70766 UT) tablet Commonly known as: Vitamin D3 [...] HYDROcodone-acetaminophen 5-325 MG tablet Commonly known as: [place] ketoconazole 2 % cream Commonly known as: [...] Dysphagia - Minced and Moist; Mildly Thick ([place]) ACTIVITY: Up with assist COMPLEXITY OF FOLLOW UP: [] Moderate Complexity: follow up within 7-14 calendar days (23024) [] Severe Complexity: follow up within 7 calendar days (36177) FOLLOW UP TESTING, PENDING RESULTS OR REFERRALS [...] 1960 Today's Date: 06/17/2022 Visit Info / [facility] ADMISSION DATE: 06/07/2022 ADMITTING DIAGNOSIS: has Chest [...] Bite-Sized (Dysphagia III), Dysphagia Pureed (Dysphagia I), [place] cup, [place] teaspoon, Honey cup, Honey teaspoon, Thin cup, [...] appropriate. Plan & Recommendations Recommendations/Treatment: Recommendations/Treat Requires HONEY PROCESSOR Intervention: Yes Recommendations: Judd Water Protocol Recommendations comment: Free water with small amount of ice chips. MAKE SURE FOR SWALLOW AFTER EVERY BITE D/C Recommendations: Ongoing speech therapy is recommended during this hospitalization Solid consistency: Dysphagia Pureed (Dysphagia I) Liquid consistency: Mildly Thick ([place]) Liquid administration via: Cup Medication administration: Meds in puree Supervision: Close Compensatory Swallowing Strategies : Assist feed, Small bites/sips, Upright as possible for all oral intake, Remain upright for 30-45 minutes after meals, Alternate solids and liquids (WATCH CLOSE for swallows) Postural Changes and/or Swallow Maneuvers: Upright 90 degrees, Upright 30 min after meal Therapeutic Interventions: Therapeutic PO trials with HONEY PROCESSOR, Patient/Family education, Diet tolerance monitoring, Judd Water [...] Start: 06/11/22 Expected End: 06/25/22 Therapy Time HONEY PROCESSOR Individual Minutes Time In: 1442 Time Out: [...] Historical ProviderMD cholecalciferol (Vitamin D3) 1.25 MG (78112 UT) tablet Take by mouth 1 (one) [...] crush, chew, or split. Historical ProviderMD HYDROcodone-acetaminophen ([place]) 5-325 MG tablet Take 1 tablet by [...] if needed for dry skin. Historical ProviderMD [place]-3 Fatty Acids (Fish Oil) 1000 MG capsule [...] Normal [] Scar/Lesion/Mass Inspection of teeth/lips/gums Dentition: [][place] Ak Teeth []Dentures Lips/Gums: []Intact []Lesion Present Mucosa: [][place] []Moist []Dry Neck: External Appearance Overall Appearance: [...] within last 24 hours- BMP: Recent Labs 06/14/2222506/15/22 0401 06/16/22 0318 [...] -- 718* Glucose: Recent Labs 06/14/2222506/15/22 0401 06/16/22317 GLUCOSE 171* 175* 173* Procal: Recent Labs 06/14/2222506/16/22317 PROCAL 0.47* 0.46* CBC: Recent Labs 06/14/2222506/15/2240006/16/22317 WBC 18.7* 19.0* 19.9* HGB 12.2* 12.2* 12.6* HCT 36.3* 37.1* 37.8* PLT 166 186 229 MCV 91.1 92.1 92.0 RDW 13.6 13.8 13.6 ABGs: Recent Labs 06/16/22 0941 PHART 7.452* APC6GIV 42.3 PO2ART 67.7* CKZ0RRM 29.5* SO2ART 94.0* Lactic Acid: No results [...] and management if needed. Jhon Bethea MD sales vice president, PGY-III Pager: [phone] 06/16/2022 at 10:44 AM Associated attestation - [...] Narrative Patient Name: MOISES MADRID : 1960 [facility]#: [id number] Exam Date/Time: 06/16/2022 05:16 Procedure: XR CHEST [...] complaint listed above. Patient resides in a usp. Patient presents to the Ed due to [...] mouth Nightly. cholecalciferol (Vitamin D3) 1.25 MG (97108 UT) tablet Take by mouth 1 (one) [...] Do not crush, chew, or split. HYDROcodone-acetaminophen ([place]) 5-325 MG tablet Take 1 tablet by [...] Apply topically if needed for dry skin. [place]-3 Fatty Acids (Fish Oil) 1000 MG capsule [...] affect Data: LIVER PROFILE: Recent Labs 06/13/2232806/14/2222506/15/22 0401 AST 35 41 29 ALT 26 36 26 BILITOT 0.8 0.7 0.6 ALKPHOS 77 106 111 CBC: Recent Labs 06/13/2232806/14/2222506/15/22 0401 WBC 14.4* 18.7* 19.0* RBC 3.86* [...] any questions or concerns. Brenda Blanco APRN, HOME CARE PHYSICAL THERAPIST [facility], [facility] [phone] office Seen and examined. Agree with above [...] Practitioner Consult Note Available for page via [employer] Monday, Monday, Monday [phone] Outside of these hours, please contact Dr. Nj (M-F 8-5) or psychiatry on-call. Moises Madrid is a [...] I came here". Reports living at the [facility] in [place] and states he likes it there. Has [...] bipolar 1, insomnia, anxiety, TBI. Records from [place] note diagnosis of bipolar disorder, severe, current episode depressed with psychotic features and mixed expressive-receptive language disorder Psychiatrist: through [facility] [place] Counselor: denies Manager Laboratory: "I don't know" Hospitalizations: multiple in past, [...] mouth Nightly. cholecalciferol (Vitamin D3) 1.25 MG (27783 UT) tablet Take by mouth 1 (one) [...] Do not crush, chew, or split. HYDROcodone-acetaminophen ([place]) 5-325 MG tablet Take 1 tablet by [...] Apply topically if needed for dry skin. [place]-3 Fatty Acids (Fish Oil) 1000 MG capsule [...] Social History: Patient reports growing up in [place] with both parents and two brothers. He denies abuse/violence in the home as a child. Denies abuse/violence as an adult. 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 He has never been , has no children. Reports he has 1 brother that occasionally checks in with him but the other is estranged, voices no other support. Currently living in [facility], has been there for several years and likes it there. Denies service, denies legal history. Denies affiliation with sabianism but does endorse a belief in God. [...] Tangential [] Loose associations [] Circumstantial [] [place] [] Perseverative [] Poverty of Thought [] [...] hypertension of right lower extremity with ulcer ([facility]) ASSESSMENT Major Depression vs Bipolar with [...] in hospital. 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 Patient's passive suicidal thoughts appear directly related [...] from the original note were not included. [facility] - Infectious Diseases Attending Consult Note Reason for Consult: Pancreatic fluid collection/abscess History of Present Illness: Patient is 61 year old admitted to [facility] with shortness of breath and chest [...] syringe 0.5 mL 0.5 mL IntraMUSCular Once Bredna Hagan lactated Ringer's infusion 200 mL/hr IntraVENous Continuous Mani Edgar, DO 200 mL/hr at 06/12/22 0317 200 mL/hr at 06/12/22 0317 lidocaine (Uro-Jet) 2 % gel Urethral PRN Mani Edgar, DO melatonin tablet 6 mg 6 mg Oral Nightly PRN Brenda Hagan 6 mg at 06/11/228 miconazole (Micotin) 2 % powder Topical BID Bertha Rodrigez, MANAGER BUSINESS PROCESS - HOME CARE PHYSICAL THERAPIST Given at 06/11/22 2157 nitroglycerin (Nitrostat) SL [...] tablet 2 tablet Oral Daily Mani Edgar 2 tablet at 06/11/22 0815 stomahesive in petrolatum (ET Mix) Topical PRN Berthamaria elena Rodrigez MANAGER BUSINESS PROCESS - HOME CARE PHYSICAL THERAPIST Given at 06/11/22 1546 Allergies: Allergies Allergen [...] -- -- (!) 112 23 95 % 06/11/221999 (!) 149/84 -- -- 109 15 -- [...] of chest pain. Patient lives in a usp secondary to traumatic brain injury and history [...] Historical Provider, cholecalciferol (Vitamin D3) 1.25 MG (58160 UT) tablet Take by mouth 1 (one) [...] crush, chew, or split. Historical ProviderMD HYDROcodone-acetaminophen ([place]) 5-325 MG tablet Take 1 tablet by [...] by mouth 2 times daily. Historical Provider, metoprolol tartrate (Lopressor) 25 MG tablet Take 25 mg by mouth 2 times daily. Historical Provider, mineral oil-hydrophilic petrolatum (Aquaphor) ointment Apply topically if needed for dry skin. Historical Provider, [place]-3 Fatty Acids (Fish Oil) 1000 MG capsule [...] 123* 121* 132* HEPATIC: Recent Labs 06/10/22 0229 06/11/22 0510 AST 63* 30 ALT 18 15 BILITOT 1.1 1.2 ALKPHOS 83 69 LIPASE/AMYLASE: Recent Labs 06/10/22228 LIPASE 3,501* LACTATE: No lab exists for component: LACTA BNP: No results for input(s): BNP in the last 72 hours. INR: Recent Labs 06/10/22 1144 INR 1.1 @RISRSLT@ @IMAGES@ CT guided abscess fluid collection drainage Narrative: [facility] Name: MOISES MADRID : 1960 [id number] Exam Date/Time: 06/10/2022 14:50 Procedure: CT GUIDED ABSCESS FLUID COLLECTION DRAINAGE Ordering Provider: EDGAR JONATHAN Reason For Exam: PROCEDURE: Drainage catheter placement Procedural Personnel Attending physician(s): Jus Barlow Indication: Peripancreatic fluid collection Additional clinical history: None Complications: No immediate complications. Impression: Percutaneous placement of a 10 South African drainage catheter into peripancreatic fluid collection, yielding [...] fluid collection - Drainage catheter placed: 10 South African APD - External catheter securement: Non-absorbable suture [...] Narrative: Patient Name: MOISES MADRID : 1960 [id number] Exam Date/Time: 06/10/2022 08:36 Procedure: XR CHEST [...] Associated Order(s): IP CONSULT TO GENERAL SURGERY [facility] - Surgery [facility] Physicians Surgery Patient Name: Moises Madrid Date: [...] chart review was performed. Remigio Napier MD [facility] General Surgery 10:00 PM 06/10/2022 Department [...] HTN, HLD, bipolar, and was currently at [facility]. He initially presented with substernal chest [...] Historical ProviderMD cholecalciferol (Vitamin D3) 1.25 MG (75855 UT) tablet Take by mouth 1 (one) [...] crush, chew, or split. Historical ProviderMD HYDROcodone-acetaminophen ([place]) 5-325 MG tablet Take 1 tablet by [...] if needed for dry skin. Historical ProviderMD [place]-3 Fatty Acids (Fish Oil) 1000 MG capsule [...] dry, and intact DATA: CBC: Recent Labs 06/08/2240706/09/2234306/10/22228 WBC 9.2 13.0* 20.2* HGB 13.2 14.1 15.4 HCT 38.5* 41.9 44.7 PLT 140 123* 121* BMP: Recent Labs 06/08/2240706/09/2234306/10/22228 NA 135 133* 133* K 5.2* 4.8 4.3 CL 107 107 105 CO2 25 23 22 BUN 35* 25* 19 CREATININE 1.21 1.02 0.87 GLUCOSE 126* 186* 233* Hepatic: Recent Labs 06/10/22228 AST 63* ALT 18 BILITOT 1.1 ALKPHOS 83 Mag: Recent Labs 06/08/2240706/09/2234306/10/22228 MG 2.1 1.8 2.2 Phos: No results [...] from the original note were not included. [facility] CONSULT Note Moises Madrid AGE: [...] History: Diagnosis Date Anxiety Ataxia Bipolar disorder ([facility]) Chronic pain Constipation Contracture, right hand [...] mouth Nightly. cholecalciferol (Vitamin D3) 1.25 MG (54621 UT) tablet Take by mouth 1 (one) [...] Do not crush, chew, or split. HYDROcodone-acetaminophen ([place]) 5-325 MG tablet Take 1 tablet by [...] Apply topically if needed for dry skin. [place]-3 Fatty Acids (Fish Oil) 1000 MG capsule [...] powder BID Please follow up at [facility] care [place] after hospital discharge. Thank you for the [...] is a 61 yo male admitted to [facility] after presenting to ED with Chest pain. CP is described in ED as constant, non-radiating, 7/10 centrally located pain. Troponin x3 <0.012. Past Medical History: has a past medical history of Anxiety, Ataxia, Bipolar disorder (HCC), Chronic pain, Constipation, Contracture, right hand, Depression, Dysphagia, Dysphagia, Dysphonia, Edema, GERD (gastroesophageal reflux disease), Headache, Hemiplegia (CMS/HCC) ([facility]), Hyperlipidemia, Hypertension, Insomnia, Muscle weakness, Neuropathy, [...] Historical ProviderMD cholecalciferol (Vitamin D3) 1.25 MG (14480 UT) tablet Take by mouth 1 (one) [...] Do not crush, chew, or split. Historical Provider, HYDROcodone-acetaminophen ([place]) 5-325 MG tablet Take 1 tablet by [...] by mouth 2 times daily. Historical Provider, metoprolol tartrate (Lopressor) 25 MG tablet Take 25 mg by mouth 2 times daily. Historical Provider, mineral oil-hydrophilic petrolatum (Aquaphor) ointment Apply topically if needed for dry skin. Historical Provider, [place]-3 Fatty Acids (Fish Oil) 1000 MG capsule [...] ABGs: No results found for: PHART, PO2ART, [id number] INR: No results for input(s): INR in [...] PATIENT NAME: Moises Madrid DATE: 06/08/2022 PAGER: [phone] [facility] [...] assisted to CT table and place supine. ekg monitor on. 10 Fr drain inserted. Bandaid applied to site. Patient tolerated procedure well. Report called and patient transferred to HICU 6, report called back to RN. At 0802 Johnny Costa notified of increased abd pain, abd distended, tender to palpation all quads. Hypoactive BS. No [id number]. Also increased need of 02, on RA [...] Unit/Room#: 232-06/232-06 A Discharging Unit Phone Number: [phone] Emergency Contact: Extended Emergency Contact Information Primary [...] assistance Toileting Total assistance Feeding Minimal assistance Cash Processing Specialist Minimal assistance Med Delivery yes Wound Care Documentation and Therapy: Wound/Incision 06/08/22 Pressure Injury Toe (Comment which one) Anterior;Right (Active) Wound Image 06/08/22 0359 Site Assessment Painful;[place];Sloughing 06/08/22425 Drainage Amount Scant 06/08/22 0426 Treatments Other (Comment) 06/08/22 042 Primary Dressing Open to air 06/08/22 0426 Number of days: 0 Wound/Incision 06/08/22 Other (comment) Abdominal fold Circumferential (Active) Site Assessment Blanchable erythema 06/08/22 0426 Odor None 06/08/22 042 Drainage Amount None 06/08/22 0426 Treatments Moisture barrier ointment 06/08/22 0426 Primary Dressing Open to air 06/08/22 0426 Number of days: 0 Wound/Incision 06/08/22 Pressure Injury Buttock Right;Posterior;Lower (Active) Wound Image 06/08/22 0425 Site Assessment Sloughing 06/08/22 0426 Primary Dressing Open to air 06/08/22 0426 Number of days: 0 Wound/Incision 06/08/22 Pressure Injury Buttock Left;Lower;Posterior (Active) Wound Image 06/08/22 0424 Site Assessment Intact 06/08/22 0426 Drainage Amount None 06/08/22 0426 Primary Dressing Open to air 06/08/22 0426 Number of days: 0 Wound/Incision 06/08/22 Pressure [...] Details Model IP RISK OF UNPLANNED READMISSION [[id number]] is not released. No score information can be retrieved Discharging to Facility/ Agency Name: [facility] Address: [address] [facility] Fax: Dialysis Facility (if applicable) Name: Address: Dialysis Schedule: Phone: Fax: Hammer Smith/Property Utilization Officer signature: ICIAN SECTION Prognosis: poor Condition at [...] complaint listed above. Patient resides in a usp . Patient presents to the Ed due [...] Muscle weakness Neuropathy TBI (traumatic brain injury) (CMS/[facility]) Past Surgical History: Past Surgical History: [...] [facility] Division of Hospitalist Medicine Inpatient Medical Services/[facility] documented in this encounter [facility] 06-07-2022 Emergency department Note Pt states no relief after 1 nitroglycerin. However, due to pt pressure, unable to continue to administer. Dr. Smallwood notified, new orders placed. Karen Patel RN 06/07/22 4713 Emergency Department Encounter [facility] ED Patient: Moises Madrid : 1960 [...] afternoon. No relief despite dispensed PPI at usp. Given 481 mg aspirins by EMS with [...] Brief ED course/MDM: 61-year-old male presenting from [facility]p for constant central nonradiating chest pain since [...] [employer] Tresa Smallwood DO 06/07/22 1063 Tresa Smallwood DO 06/08/22 0049 EMERGENCY DEPARTMENT [...] Muscle weakness Neuropathy TBI (traumatic brain injury) (CMS/HCC) SURGICAL HISTORY Past Surgical History: Procedure Laterality [...] In compliance with this authorization, please visit www.fda.gov/media/627619/download or www.fda.gov/media/656865/download to access the applicable information sheets. TROPONIN [...] Hyperkalemia 3. EDWARDO (acute kidney injury) ([facility]) ([facility]) DISPOSITION Observation 06/08/2022 01:18:58 AM PATIENT [...] PA-C 06/08/22 0127 documented in this encounter [facility] Evaluation note Diagnosis Cellulitis of right lower extremity- Primary Cellulitis and abscess of leg, except foot Elevated lactic acid level Other nonspecific abnormal serum enzyme levels [facility] Work Phone: Evaluation noteNo assessment information available [facility] Work Phone: Evaluation note* Diagnosis Calculus [...] [facility] for [facility] care- [facility] Diagnosis Passive suicidal ideations- Primary [facility] Diagnosis Chronic daily headache- Primary Headache Intractable chronic migraine without aura and with status migrainosus Chronic migraine without aura, with intractable migraine, so stated, with status migrainosus Traumatic brain injury with loss of consciousness, sequela (HCC) Insomnia, unspecified type [facility] Diagnosis Cellulitis of right lower extremity- Primary Right lower quadrant abdominal pain Constipation, unspecified constipation type [facility] Diagnosis Lymphedema- Primary Other noninfectious lymphedema Venous insufficiency (chronic) (peripheral) Unspecified venous (peripheral) insufficiency Non-pressure chronic ulcer right lower leg, limited to breakdown skin (HCC) Non-pressure chronic ulcer of other part of right foot with fat layer exposed (HCC) Decreased mobility [facility] Venous insufficiency (chronic) (peripheral)- Primary Unspecified venous (peripheral) insufficiency Lymphedema Other noninfectious lymphedema Non-pressure chronic ulcer right lower leg, limited to breakdown skin (HCC) Non-pressure chronic ulcer of other part of right foot with fat layer exposed (HCC) Decreased mobility [facility] Diagnosis Venous insufficiency (chronic) (peripheral)- Primary Unspecified venous (peripheral) insufficiency Lymphedema Other noninfectious lymphedema Non-pressure chronic ulcer right lower leg, limited to breakdown skin (HCC) Non-pressure chronic ulcer of other part of right foot with fat layer exposed (HCC) Decreased mobility [facility] Diagnosis Non-pressure chronic ulcer of other part of right foot with fat layer exposed (HCC) Lymphedema Other noninfectious lymphedema Venous insufficiency (chronic) (peripheral) Unspecified venous (peripheral) insufficiency Non-pressure chronic ulcer right lower leg, limited to breakdown skin (HCC) [facility] Diagnosis Non-pressure chronic ulcer of other part of right foot with fat layer exposed (HCC) Venous insufficiency (chronic) (peripheral) Unspecified venous (peripheral) insufficiency Lymphedema Other noninfectious lymphedema [facility] Diagnosis Non-pressure chronic ulcer of other [...] insufficiency Decreased mobility [facility] Diagnosis Non-pressure chronic ulcer [...] with ulcer of right lower extremity (CODE) ([facility]) [I87.311]- Primary Non-pressure chronic ulcer of other part of right lower leg with fat layer exposed ([facility]) [L97.812] Chronic venous hypertension (idiopathic) with ulcer of left lower extremity (CODE) ([facility]) [I87.312] Non-pressure chronic ulcer of other part of left lower leg with fat layer exposed ([facility]) [L97.822] Peripheral venous insufficiency [I87.2] Unspecified venous (peripheral) insufficiency [facility] Chest pain- Primary Unspecified chest pain Chest pain, unspecified type Hyperkalemia Hyperpotassemia EDWARDO (acute kidney injury) (CMS/HCC) ([facility]) Chest pain on breathing Painful respiration Stable angina pectoris (CMS/HCC) ([facility]) Idiopathic chronic venous hypertension of right lower extremity with ulcer (HCC) Peripheral vascular disease, unspecified (HCC) Peripheral vascular disease, unspecified Venous insufficiency (chronic) (peripheral) Unspecified venous (peripheral) insufficiency Non-pressure chronic ulcer of other part of right foot with fat layer exposed ([facility]) Depression Depressive disorder, not elsewhere classified Essential hypertension, benign Hemiplegia ([facility]) (HCC) Unspecified hemiplegia affecting unspecified side Obesity, Class I, BMI 30-34.9 Hyperlipidemia Other and unspecified hyperlipidemia Idiopathic chronic venous hypertension of right lower extremity with ulcer ([facility]) [facility] Diagnosis Non-pressure chronic ulcer of other part of right foot with fat layer exposed ([facility])- Primary Peripheral venous insufficiency [I87.2] Unspecified venous (peripheral) insufficiency [facility] Diagnosis Non-pressure chronic ulcer of other part of right foot with fat layer exposed ([facility])- Primary Peripheral venous insufficiency [I87.2] Unspecified venous (peripheral) insufficiency [facility] Diagnosis Non-pressure chronic ulcer of other part of right foot with fat layer exposed (HCC)- Primary Peripheral venous insufficiency [I87.2] Unspecified venous (peripheral) insufficiency Chronic venous hypertension (idiopathic) with ulcer of left lower extremity (CODE) ([facility]) [I87.312] Chronic venous hypertension (idiopathic) with ulcer of right lower extremity (CODE) ([facility]) [I87.311] Non-pressure chronic ulcer of other part of right lower leg with fat layer exposed ([facility]) [L97.812] Non-pressure chronic ulcer of other part of left lower leg with fat layer exposed ([facility]) [L97.822] Non-pressure chronic ulcer left lower leg, limited to breakdown skin ([facility]) Venous insufficiency (chronic) (peripheral) Unspecified venous (peripheral) [...] [facility] (narrative)No reason for referral information availableWKindred Healthcare Work Phone: Summary Purpose Family History No Family History Records FoundNo Family History Records FoundNo Family History Records FoundNo Family History Records FoundNo Family History Records FoundNo Family History Records Found Advance Directives No Advanced Directives Records FoundDocuments on File Type Date Recorded 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 * Hypertension: Emergency or Urgency (Guyanese) * Headache (Guyanese) documented in this encounter* Attachments The following attachments cannot be sent through Care Everywhere. * Head Injury: Closed: General Info (Guyanese) * Lacerations: Rashida (Guyanese) documented in this encounter Assessments Diagnosis Hypertensive urgency Unspecified essential hypertension Acute nonintractable headache, unspecified headache type Diagnosis Injury of head, initial encounter- Primary Laceration of scalp, initial encounter Chief Complaint and Reason for Visit Chief Complaint CORRECTION LABWORK CORRECTION LABWORK Chief Complaint CORRECTION LABWORK CORRECTION LAB WORK CORRECTION LABWORK Chief Complaint CORRECTION LABWORK CORRECTION LAB WORK CORRECTION LAB WORK Chief Complaint CORRECTION LABWORK CORRECTION LAB WORK CORRECTION LAB WORK CORRECTION LAB WORK Chief Complaint CORRECTION LAB WOR K CORRECTION LAB WORK LABWORK Chief Complaint CORRECTION LAB WOR K CORRECTION LAB WORK LABWORK LABWORK Chief Complaint CORRECTION LAB WOR K LABWORK LABWORK LABWORK Chief Complaint LABWORK LABWORK LABWORK LABWORK CORRECTION LAB WORK Chief Complaint CORRECTION LABWORK LABWORK CORRECTION LABWORK LABWORK CORRECTION LABWORK CORRECTION LABWORK CORRECTION LAB WORK CORRECTION LAB WORK Chief Complaint CORRECTION LABWORK LABWORK CORRECTION LABWORK CORRECTION LABWORK CORRECTION LAB WORK CORRECTION LAB WORK CORRECTION LABWORK Chief Complaint LABWORK CORRECTION LABWORK CORRECTION LABWORK CORRECTION LAB WORK CORRECTION LAB WORK CORRECTION LABWORK CORRECTION LABWORK CORRECTION LABWORK Chief Complaint CORRECTION LAB WOR K CORRECTION LABWORK CORRECTION LABWORK CORRECTION LABWORK Chief Complaint CORRECTION LABWORK CORRECTION LABWORK CORRECTION LABWORK CORRECTION LABWORK CORRECTION LABWORK LABWORK Chief Complaint CORRECTION LABWORK CORRECTION LABWORK CORRECTION LABWORK LABWORK CORRECTION LAB WORK LABWORK Chief Complaint CORRECTION LABWORK CORRECTION LABWORK LABWORK CORRECTION LAB WORK LABWORK CORRECTION LAB WORK Chief Complaint LABWORK CORRECTION LAB WORK LABWORK CORRECTION LAB WORK CORRECTION LAB WORK CORRECTION LABWORK Chief Complaint LABWORK LABWORK Chief Complaint LABWORK LABWORK LABWORK Chief Complaint CORRECTION LABWORK LABWORK CORRECTION LAB WORK LABWORK CORRECTION LAB WORK CORRECTION LAB WORK Chief Complaint Admit Date CORRECTION LAB WORK March 13, 2024 4:40am CORRECTION LAB WORK June 10, 2024 4: 00am Chief Complaint Admit Date CORRECTION LAB WORK June 10, 2024 4: 00am LABWORK July 08, 2024 5:0 0am Chief Complaint Admit Date CORRECTION LAB WORK June 10, 2024 4: 00am LABWORK July 08, 2024 5:0 0am CORRECTION LAB WORK July 22, 2024 5 :00am Chief Complaint Admit Date CORRECTION LAB WORK June 10, 2024 4: 00am LABWORK July 08, 2024 5:0 0am CORRECTION LAB WORK July 22, 2024 5 :00am CORRECTION LAB WORK July 29, 2024 4 :00am Chief Complaint Admit Date CORRECTION LAB WORK October 21, 2024 5: 00am CORRECTION LAB WORK December 05, 2024 5:00am CORRECTION LAB WORK December 10 5:00am CORRECTION LAB WORK January 07 5:00am CORRECTION LABWORK January 13, 2025 4 :00am Reason for Referral Specialty Diagnoses / Procedures Referred By Contac t Referred To Contact Radiology Diagnoses Calculus of gallbladder without cholecystitis without obstruction Peripancreatic abscess Procedures CT abdomen pelvis w contrast Candie Vieyra PA-C [address] [place] [address] Referral ID Status Reason Start Date Expiration Date V isits Requested Visits Authorized [id number] Pending Review 07/29/2022 01/25/2023 1 1 Referral ID Status Reason Start Date Expiration Date V isits Requested Visits Authorized [id number] Authorized 07/29/2022 01/25/2023 1 1 Specialty Diagnoses / Procedures Referred By Sydnie lincoln Referred To Contact Cardiology Diagnoses Peripheral vascular disease, unspecified (HCC) Venous insufficiency (chronic) (peripheral) Non-pressure chronic ulcer of other part of right foot with fat layer exposed (HCC) Procedures Vascular US lower extremity venous duplex bilateral Demetrius Fenton [address] [facility] [address] [place] [phone] Referral ID Status Reason Start Date Expiration Date Visits Requested Visits Authorized [id number] Pending Review Perform Procedure 06/09/2022 12/06/2022 1 1 Specialty Diagnoses / Procedures Referred By Sydnie t Referred To Contact Radiology Diagnoses Calculus of gallbladder without cholecystitis without obstruction Peripancreatic abscess Procedures CT abdomen pelvis w contrast Candie Vieyra PA-Marvin [address] [place] [address] [place] [address] Referral ID Status Reason Start Date Expiration Date Visits Re quested Visits Authorized [id number] Closed 09/30/2022 10/30/2022 1 1 Additional Source Comments (unrecognized sect ion and content) No Status Records FoundNo Status Records FoundNo Status Records FoundNo Status Records FoundNo Status Records FoundNo Status Records Found INFORMATION SOURCE (unrecogn ized section and content) DATE CREATED AUTHOR 04/05/2019 [facility] DATE CREATED AUTHOR AUTHOR'S ORGANIZ ATION 10/14/2021 [facility] DATE CREATED AUTHOR AUTHOR'S ORGANIZ ATION 11/08/2021 [facility] DATE CREATED AUTHOR AUTHOR'S ORGANIZ ATION 04/11/2024 [facility] DATE CREATED AUTHOR AUTHOR'S ORGANIZ ATION 01/15/2025 [facility] DATE CREATED AUTHOR AUTHOR'S ORGANIZ ATION 02/08/2025 [facility] Reason for Visit (unrecogniz ed section and content) Reason Comments Hypertension Reason Comments Appointment needs outpatient cys toscopy in the OR Reason Comments Head Injury Fall Reason Comments Leg Swelling Reason Onset Date Comments OTHER 07/15/2022 Reason Comments 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 by angel fenton gallbladder Specialty Diagnoses / Procedures Referred By Sydnie lincoln Referred To Contact General Surgery Diagnoses Disease of gallbladder, unspecified Procedures ND ABDOMEN WALL SURG PROC UNLISTED Demetrius Fenton [address] [facility] [address] [place] [address] Brady Powell MD [address] [place] [address] Referral ID Status Reason Start Date Expiration Date V isits Requested Visits Authorized [id number] Closed Specialty Services Required 07/28/2022 01/27/2023 1 1 Specialty Diagnoses / Procedures Referred By Sydnie lincoln Referred To Contact Radiology Diagnoses Calculus of gallbladder without cholecystitis without obstruction Peripancreatic abscess Procedures CT abdomen pelvis w contrast Candie Vieyra PA-C [address] [place] [address] [place] [address] Referral ID Status Reason Start Date Expiration Date Visits Re quested Visits Authorized [id number] Closed 09/30/2022 10/30/2022 1 1 Reason Comments Post-op ALS PO 2WK LAP RAMBO Reason Comments Suicidal Pt [facility] told staff [facility] that he was thinking about driving his [...] 5/10. Specialty Diagnoses / Procedures Referred By Sydnie lincoln Referred To Contact Diagnoses Hyperkalemia Chest pain Chest pain on breathing EDWARDO (acute kidney injury) (CMS/HCC) ([facility]) Chest pain, unspecified type Procedures . Brenda Hagan [address] [place] [address] [facility] [address] [place] [address] Referral ID Status Reason Start Date Expiration Date Visits Re quested Visits Authorized [id number] 1 1 Reason Comments Follow Up Chronic daily headac hes Source Comments (unrecognize d section and content) In the event this informatio n is protected by the Federal Confidentiality of Alcohol and Drug Abuse Patient Records regulations: The Federal rules restrict any use of the information to criminally investigate or prosecute any alcohol or drug abuse patient.[facility] the event this information is protected by the Federal Confidentiality of Alcohol and Drug Abuse Patient Records regulations: The Federal rules restrict any use of the information to criminally investigate or prosecute any alcohol or drug abuse patient.[facility] the event this information is protected by the Federal Confidentiality of Alcohol and Drug Abuse Patient Records regulations: The Federal rules restrict any use of the information to criminally investigate or prosecute any alcohol or drug abuse patient.[facility] the event this information is protected by the Federal Confidentiality of Alcohol and Drug Abuse Patient Records regulations: The Federal rules restrict any use of the information to criminally investigate or prosecute any alcohol or drug abuse patient.[facility] Telephone Encounter - Raul Banks - 01/24/2020 3:36 PM EDTTelephone Encounter - Margaret Christopher ([facility]) - 01/23/2020 5:10 PM EDT Miscellaneous Notes (unrecog nized section and content) Pt seen at [place] to schedule cysto, dilation in pt/guardian are interested. If they'd prefer [place] let one of our [facility] docs know Raul Banks MD Please contact the patients guardian and arrange a cystoscopy in the OR as an outpatient with Dr. Banks Urinary retention, bulbar stricture He will be discharged to [place] documented in this encounter Care Teams (unrecognized [...] WICK Attending Provider, Referring Provi javier Active Pharmacy Informatics Manager Relationship Specialty Start Date End Date Yogi Smith MD [address] [place] [address] PCP - General Family Medicine 04/10/21 Pharmacy Informatics Manager Relationship Specialty Start Date End Date Yogi Smith MD [address] [place] [address] PCP - General Family Medicine 04/10/21 Pharmacy Informatics Manager Relationship Specialty Start Date End Date Yogi Smith MD [address] [place] [address] PCP - General Family Medicine 04/10/21 Pharmacy Informatics Manager Relationship Specialty Start Date End Date Yogi Smith MD [address] [place] [address] PCP - General Family Medicine 04/10/21 Team Status: Inactive Member Role Status Dates Gunnar Cummings Attending Provider Active Team Status: Inactive Member Role Status Dates Demetrius Fenton Attending Provider Active Team Status: Active Member Role Status Dates Demetrius Fenton Attending Provider Active Pharmacy Informatics Manager Relationship Specialty Start Date End Date Demetrius Fenton [address] [facility] [address] [place] [phone] PCP - General Internal Medicine 06/09/22 Pharmacy Informatics Manager Relationship Specialty Start Date End Date Demetrius Fenton [address] [place] [phone] PCP - General Internal Medicine 06/09/22 Pharmacy Informatics Manager Relationship Specialty Start Date End Date Demetrius Fenton [address] [place] [phone] PCP - General Internal Medicine 06/09/22 Pharmacy Informatics Manager Relationship Specialty Start Date End Date Demetrius Fenton [address] [place] [phone] PCP - General Internal Medicine 06/09/22 Pharmacy Informatics Manager Relationship Specialty Start Date End Date Demetrius Fenton [address] [place] [phone] PCP - General Internal Medicine 06/09/22 Pharmacy Informatics Manager Relationship Specialty Start Date End Date Demetrius Fenton [address] [place] [phone] PCP - General Internal Medicine 06/09/22 Pharmacy Informatics Manager Relationship Specialty Start Date End Date Demetrius Fenton [address] [place] [phone] PCP - General Internal Medicine 06/09/22 Pharmacy Informatics Manager Relationship Specialty Start Date End Date Demetrius Fenton [address] [place] [phone] PCP - General Internal Medicine 06/09/22 Pharmacy Informatics Manager Relationship Specialty Start Date End Date Demetruis Fenton [address] [place] [phone] PCP - General Internal Medicine 06/09/22 Pharmacy Informatics Manager Relationship Specialty Start Date End Date Demetrius Fenton [address] [place] [phone] PCP - General Internal Medicine 06/09/22 Pharmacy Informatics Manager Relationship Specialty Start Date End Date Demetrius Fenton [address] [place] [phone] PCP - General Internal Medicine 06/09/22 Pharmacy Informatics Manager Relationship Specialty Start Date End Date Demetrius Fenton [address] [place] [phone] PCP - General Internal Medicine 06/09/22 Team Status: Inactive Member Role Status Dates Gunnar WICK Attending Provider, Referring Prov ider Active Pharmacy Informatics Manager Relationship Specialty Start Date End Date Demetrius Fenton MD [address] [place] [address] PCP - General Internal Medicine 06/16/23 Pharmacy Informatics Manager Relationship Specialty Start Date End Date Demetrius Fenton [address] [place] [phone] PCP - General Internal Medicine 06/09/22 Pharmacy Informatics Manager Relationship Specialty Start Date End Date Demetrius Fenton MD [address] [place] [address] PCP - General Internal Medicine 06/16/23 Pharmacy Informatics Manager Relationship Specialty Start Date End Date Demetrius Fenton [address] [place] [phone] PCP - General Internal Medicine 06/09/22 Pharmacy Informatics Manager Relationship Specialty Start Date End Date Demetrius Fenton [address] [place] [address] PCP - General Internal Medicine 06/09/22 Pharmacy Informatics Manager Relationship Specialty Start Date End Date Demetrius Fenton [address] [place] [phone] PCP - General Internal Medicine 06/09/22 Pharmacy Informatics Manager Relationship Specialty Start Date End Date Demetrius Fenton [address] [place] [phone] PCP - General Internal Medicine 06/09/22 Pharmacy Informatics Manager Relationship Specialty Start Date End Date Demetrius Fenton [address] [place] [phone] PCP - General Internal Medicine 06/09/22 Pharmacy Informatics Manager Relationship Specialty Start Date End Date Demetrius Fenton [address] [place] [phone] PCP - General Internal Medicine 06/09/22 Pharmacy Informatics Manager Relationship Specialty Start Date End Date Demetrius Fenton [address] [place] [phone] PCP - General Internal Medicine 06/09/22 Pharmacy Informatics Manager Relationship Specialty Start Date End Date Demetrius Fenton [address] [place] [phone] PCP - General Internal Medicine 06/09/22 Pharmacy Informatics Manager Relationship Specialty Start Date End Date Demetrius Fenton [address] [place] [phone] PCP - General Internal Medicine 06/09/22 Pharmacy Informatics Manager Relationship Specialty Start Date End Date Demetrius Fenton [address] [place] [phone] PCP - General Internal Medicine 06/09/22 Pharmacy Informatics Manager Relationship Specialty Start Date End Date Demetrius Fenton [address] [place] [address] PCP - General Internal Medicine 06/09/22 Pharmacy Informatics Manager Relationship Specialty Start Date End Date Demetrius Fenton [address] [place] [address] PCP - General Internal Medicine 06/09/22 Pharmacy Informatics Manager Relationship Specialty Start Date End Date Demetrius Fenton [address] [place] [address] PCP - General Internal Medicine 06/09/22 Pharmacy Informatics Manager Relationship Specialty Start Date End Date Demetrius Fenton MD [address] [place], [place] [phone] PCP - General Internal Medicine 06/16/23 Team [...] Status: Inactive Member Role Status Dates Demetrius Ortizsunday WICK Attending Provider Active Sta rt: July 08, 2024 End: July 08, 2024 Team Status: Active Member Role Status Dates Demetrius Lilliesonja WICK Attending Provider Active Sta rt: July 22, 2024 Team Status: Inactive Member Role Status Dates Demetrius Ortizsunday WICK Attending Provider Active Sta rt: July [...] July 29, 2024 End: July 29, 2024 Team Status: Active Member Role/Relationship Status Dates Gunnar Cummings SHAMIKA Attending physician Active S tart: October 21, 2024 Team Status: Inactive Member Role/Relationship Status Dates Demetrius WICK Attending physician Active St art: December 05, 2024 End: December 05, 2024 Team Status: Active Member Role/Relationship Status Dates Demetrius WICK Attending physician Active St art: December 10, 2024 Team Status: Active Member Role/Relationship Status Dates Demetrius WICK Attending physician Active St art: January 07, 2025 Team Status: Active Member Role/Relationship Status Dates Demetrius WICK Attending physician Active St art: January 13, 2025 Goals (unrecognized section and content) Goals may [...] IntraVENous, IMG once PRN, contrast, Starting on 06/23/23 at 0007, For 1 dose 0008 (Given [...] skin folds) 08 (Given - Provider: Demetrius Castillo RN)2028 (Given - Provider: Lilli Barragan RN) 09 (Given - Provider: Becky Upton RN) senna-docusate sodium (Senokot-S) 8.6-50 MG tablet 2 tablet 2 tablet, Oral, Daily, First dose on Jessica 06/09/22 at 1000 0852 (Given - Provider: Joslyn Reyes RN) 08 (Given - Provider: Demetrius Castillo RN) 0903 [...] RN)2026 (Given - Provider: Lilli Barragan, SO) 903 (Given - Provider: Becky Upton RN) PRN [...] BE BASED ON THE PRIMARY CLINICAL RECORDS. [facility]. provides no warranty or guarantee of the accuracy or completeness of information in this document.
[2025-03-21 07:39] LABS: Hematocrit 42.1 % (40-54); Hemoglobin 14.4 g/dL (13.0-16.5); Mean Corp Hgb Conc 34.2 g/dL (32-36); Mean Corpuscular Volume 90.9 fL (80-94); Mean Platelet Vol. 11.2 fl (6.2-12.0); Platelet Count 129 K/mm3 (150-450); RBC Distribution Width CV 12.8 % (11.6-14.6); RBC Distribution Width SD 41.3 fl (35.1-43.9); Red Blood Count 4.63 M/mm3 (4.6-6.2); White Blood Count 6.8 K/mm3 (4.4-11.0)
[2025-03-21 07:57] LABS: Cholesterol 103 mg/dL (<=200); Low Density Lipoprotein Calc. 43 mg/dL; Triglycerides 123 mg/dL; Very Low Density Lipoprotein 25 mg/dL (5-40); cholesterol:hdl ratio screen 2.69
[2025-03-21 07:59] LABS: AST(SGOT) 32 U/L (<=37); Alanine Aminotransfer ALT/SGPT 26 U/L (<=46); Albumin, Serum 3.9 g/dL (3.4-4.8); Alkaline Phosphatase 57 U/L (40-129); Anion Gap 10 (5-15); BUN 16 mg/dL (4-19); BUN/Creat Ratio 15.1 RATIO (10-20); Calcium,Total 9.1 mg/dL (7.6-11.0); Carbon Dioxide 24.9 mmol/L (21.0-32.0); Chloride 100 mmol/L (98-108); Globulin 2.6 g/dL (2.2-4.2); Glucose 146 mg/dL (70-99); Potassium 4.4 mmol/L (3.3-5.1)
== END ==
LOC: OLS.SANC 05:00
PROVIDERS: Visit Provider Internal Medicine
DX: I10 Essential (primary) hypertension (principal); E78.5 Hyperlipidemia, unspecified; E87.6 Hypokalemia; R60.0 Localized edema
CPT/HCPCS: 36415; 80053; 80061; 85027

== ENCOUNTER → 2025-04-07 05:00 | Outpatient (REF) | payer MEDICARE, MEDICAID, SELFPAY ==
--- OUTSIDE RECORDS SUMMARY | 2025-04-07 03:56 | XMS RPT_ITS | CCD ---
Author Organization [facility] Care Team Providers Care Resident Buyer Name Role Phone Unavailable Primary Care Provider UnavailGunnar Kenney Primary Care Provider Yogi Smith MD Primary Care Provider [phone] Unavailable Primary Care Provider UnavailDemetrius Macedo Primary Care Provider [phone] Demetrius Fenton Primary Care Provider [phone] Demetrius Fenton MD Primary Care Provider Demetrius Fenton Primary Care Provider [phone] DEMETRIUS FENTON Primary Care Unavailable JULISSA TAYLOR [...] (3 sources) hydrALAZINE Drug Allergy 05-25-19 Unknown [facility] Lincosamides (antibiotic) (3 sources) Clindamycin Drug Allergy 09-26-19 14 Rash [facility] Opioid Agonists (3 sources) traMADol Drug Allergy 05-25-19 Unknown [facility] Pollen (3 sources) Pollen Substance Allergy 10-26-19 [facility] Sulfamethoxazole / Trimethoprim (3 sources) Sulfamethoxazole / Trimethoprim Drug Allergy 05-25-19 Unknown [facility] (20 sources) Clindamycin; Translations: [CLINDAMYCIN] Drug Allergy 09-26-19 14 [facility] Work Phone: (20 sources) Other Propensity to adverse reactions 03-09-20 [facility] Work Phone: (1 source) Cat Gut Sutures [Other] Propensity to adverse reactions 03-09-20 [facility] (20 sources) hydrALAZINE; Translations: [HYDRALAZINE] Drug Allergy 05-25-19 Unknown [facility] (20 sources) Sulfamethoxazole / Trimethoprim; Translations: [SULFAMETHOXAZOLE-TR IMETHOPRIM] Drug Allergy 05-25-19 Unknown [facility] (20 sources) Temazepam; Translations: [TEMAZEPAM] Propensity to adverse reactions 05-25-19 Unknown [facility] (20 sources) traMADol; Translations: [TRAMADOL] Drug Allergy 05-25-19 Unknown [facility] (20 sources) Pollen Propensity to adverse reactions 10-26-19 [facility] (3 sources) Temazepam Drug Allergy 05-25-19 Unknown [facility] (2 sources) Pollen; Translations: [POLLENS EXTRACT] Drug Allergy 07-09-19 Unknown [facility] NEGATED: Highlighted row has been ruled out! (12 sources) Other Propensity to adverse reactions 03-09-20 [facility] Work Phone: Medications Current Medications Medication Drug [...] temp). Active take 2 capsules by m [facility] every four hours acetaminophen 325 mg [...] by mouth every eight hours HYDROcodone-aceta minophen ([place]) 5-325 MG tablet Take 1 tablet by [...] every 8 hours as needed for pain. [id number] 200 actuat albuterol 0.09 mg/actuat metered dose [...] Active Start: 06-21-2018 take 2 tablets by [facility] once daily amLODIPine (NORVASC) 5 [...] Comment on above: Take 1 capsule by [facility] once each week. ciprofloxacin 500 mg oral [...] 1000 mg / omega-3 acid ethyl esters (senior care) 300 mg delayed release oral capsule (7 sources) take 2000 mg by mouth twice daily [place]-3 Fatty Acids (FISH OIL) 1000 MG CPDR [...] on above: Take 1 capsule by mo [facility] once daily. docusate sodium 50 mg / sennosides, senior care 8.6 mg oral tablet (20 sources) Start: [...] on above: Take 2 tablets by mo [facility]. doxycycline hyclate 100 mg oral capsule (12 [...] Start: 06-25-2022 ergocalciferol (Vitamin D2) 1.25 MG (10015 UT) capsule 2 ml famotidine 10 mg/ml [...] capsule End: 06-23-2022 take 1 capsule by [facility] three times daily gabapentin (NEURONTIN) 100 MG [...] End: 06-23-2022 take 2 tablets by mo [facility] once daily lisinopril (PRINIVIL;ZESTRIL) 20 MG tablet [...] 2 times d aily, First dose on [facility] 06/23/22 at 1200 Start: 06-09-2022 End: 06-09-2022 5 mg, IntraVENous, Every 5 m in PRN, patient has chest pain, ST segment elevation on EKG, heart rate 150 or greater, SBP 240 mmHg or greater, or DBP 120 mmHg or greater, Starting on [facility] 06/09/22 at 1442, For 3 doses, [...] Drug Start: 05-24-2022 minocycline 100 MG capsule [place]-3 Fatty Acids (FISH OIL) 1000 MG CPDR (8 sources) take 2000 mg by mouth twice daily [place]-3 Fatty Acids (FISH OIL) 1000 MG CPDR [...] mouth tw ice daily. polyethylene glycol 3350 [id number] mg powder for oral solution (7 sources) [...] 3 mg/ml oral solution (2 sources) Uncompetitive T-ibqtng-I-aspartate Receptor Antagonist, Sigma-1 Agonist End: 06-23 1 [...] hydrochloride 10 mg oral tablet (20 sources) A-iewprg-U-aspartate Receptor Antagonist Start: 2014 End: 2024 take [...] at 10 07, For 1 dose Lucero Worrlel: cabinet override Start: 06-16-2022 End: 06-16-2022 1 [...] on above: Take 2 tablets by mo [facility] daily at bedtime. 10 ml sodium bicarbonate [...] Meropenem Med-Surg/Crit Care Init Dosing MEENU 8, Botany Technician cl >=50, 3h Suspected Indication (Select all [...] care facility (current) drug therapy; Translations: [Other exterminator (current) drug therapy] Onset: 03-27-2024 Episodic Other [...] current use of drug therapy; Translations: [Other exterminator (current) drug therapy] Onset: 02-26-2022 07-27-2022 Episodic [...] Facility Urine Cultureon 01-15-2025 [facility] Escherichia coli Cornell Count 80,000-100,000 Escherichia coli: REACTION Ampicillin Islt [...] TMP SMX Islt MEENU >=320 R Normal [facility] Comment on above: Performed By: #### L 500.4050, L501.9985, L500.4100, L100.0500 #### [facility] [address] [place], [address] Bilirubin Test strip Ql (U)O rdered By: Demetrius Fenton on 01-13-2025 Bilirubin Ql (U) Negative Negative [facility] CNOVon 01-13-2025 CNOV Office Visit ([facility] ) MOISES MADRID ([id number]) 1960 M Date Time Provider Department 01/13/25 11:30 AM CHHAYA SALDANA [facility] During your visit today, we recorded [...] - Melatonin 10 mg QHS (sleep) - [place] 5 mg q8hrs PRN pain (takes around [...] this visit. (more content not included)... Normal [facility] Ketones Test strip Ql (U)Ord ered By: Demetrius Fenton on 01-13-2025 Ketones Ql (U) Negative Negative [facility] Microscopic analysis of urin e for red blood cells (RBC)Ordered By: Demetrius Fenton on 01-13-2025 Microscopic analysis of urine for red blood cells (RBC) 0 SEEN /hpf 0-5 [facility] Mucus LM Ql (Urine sed)Order ed By: Demetrius Fenton on 01-13-2025 Mucus Ql (Urine sed) 0 SEEN /hpf [facility] Nitrite Test strip Ql (U)Ord ered By: Demetrius Fenton on 01-13-2025 Nitrite Ql (U) Negative Negative [facility] Protein Test strip Ql (U)Ord ered By: Demetrius Fenton on 01-13-2025 Protein Ql (U) Negative Negative [facility] Squamous epithelial cells de tection in urine sediment by light microscopyOrdered By: Demetrius Fenton on 01-13-2025 Epithelial cells.squamous LM Ql (Urine sed) 0 SEEN /hpf 0-5 [facility] Urinalysis, Completeon 01-13 WBC 0-5 SEEN Normal 0-5 [facility] Comment on above: Order Comment: CLEAN CATCH Performed By: #### L 500.4050, L501.9985, L500.4100, L100.0500 #### [facility] [address] [place], [address] BACTERIA 0 SEEN Normal None Seen [facility] Comment on above: Order Comment: CLEAN CATCH Performed By: #### L 500.4050, L501.9985, L500.4100, L100.0500 #### [facility] [address] [place], [address] EPI,SQUAMOUS 0 SEEN Normal 0-5 [facility] Comment on above: Order Comment: CLEAN CATCH Performed By: #### L 500.4050, L501.9985, L500.4100, L100.0500 #### [facility] [address] [place], [address] Mucus Ql (Urine sed) [address] [facility] Comment on above: Order Comment: CLEAN CATCH Performed By: #### L 500.4050, L501.9985, L500.4100, L100.0500 #### [facility] [address] [place], [address] RBC 0 SEEN Normal 0-5 [facility] Comment on above: Order Comment: CLEAN CATCH Performed By: #### L 500.4050, L501.9985, L500.4100, L100.0500 #### [facility] [address] [place], [address] Urine clarityOrdered By: Miriam Fenton on 01-13-2025 Clarity (U) Clear Clear [facility] Urine color determinationOrd ered By: Demetrius Fenton on 01-13-2025 Color (U) Yellow Yellow [facility] Urine cultureOrdered By: Miriam Fenton on 01-13-2025 Bacteria identified Cx Nom (U) Escherichia coli Abnormal [facility] Urine glucose detectionOrder ed By: Demetrius Fenton on 01-13-2025 Glucose Ql (U) Normal mg/dl Normal [facility] Urine leukocyte esterase det ection by dipstickOrdered By: Demetrius Fenton on 01-13-2025 Leukocyte esterase Test strip Ql (U) 25 /ul High Negative [facility] Urine pHOrdered By: Demetrius astorga on 01-13-2025 pH (U) 7.0 [pH] 5.0 - 8.0 [facility] Urine sediment bacteria coun t by microscopy (number/high power field)Ordered By: Demetrius Fenton on 01-13-2025 Bacteria LM.HPF (Urine sed) [#/Area] 0 /[HPF] None Seen [facility] Urine specific gravity measu rementOrdered By: Demetrius Fenton on 01-13-2025 Specific gravity (U) [Rel density] 1.010 1.002-1.030 [facility] Urine urobilinogen measureme ntOrdered By: Demetrius Fenton on 01-13-2025 Urobilinogen Ql (U) Normal mg/dl Normal [facility] White blood cell countOrdere d By: Demetrius Fenton on 01-13-2025 White blood cell count 0-5 SEEN /hpf 0-5 [facility] Anion gap in Serum or Plasma Ordered By: Demetrius Fneton on 01-07-2025 Anion gap [Moles/Vol] 11 mmol/L 5-15 [facility] BUN/creatinine ratioOrdered By: Demetrius Fenton on 01-07-2025 Urea nitrogen/Creatinine [Mass ratio] 11.6 mg/mg 10-20 [facility] Bilirubin, totalOrdered By: Demetrius Fenton on 01-07-2025 Bilirubin [Mass/Vol] 0.83 mg/dL 0.00-1.[address] [facility] CBC-Complete Blood Cnt No Di ffon 01-07-2025 Erythrocyte distribution width (RBC) [Ratio] 12.9 % Normal 11.6-14.6 [facility] Comment on above: Order Comment: 107.1 Performed By: #### L 500.4050, L501.9985, L500.4100, L100.0500 #### [facility] [address] [place], [address] Hematocrit (Bld) [Volume fraction] 40.3 % Normal 40-54 [facility] Comment on above: Order Comment: 107.1 Performed By: #### L 500.4050, L501.9985, L500.4100, L100.0500 #### [facility] [address] [place], [address] Hemoglobin (Bld) [Mass/Vol] 13.9 g/dL Normal 13.0-16.5 [facility] Comment on above: Order Comment: 107.1 Performed By: #### L 500.4050, L501.9985, L500.4100, L100.0500 #### [facility] [address] [place], [address] MCH (RBC) [Entitic mass] 31.3 pg Normal 27.0-32.0 [facility] Comment on above: Order Comment: 107.1 Performed By: #### L 500.4050, L501.9985, L500.4100, L100.0500 #### [facility] [address] [place], [address] MCHC (RBC) [Mass/Vol] 34.5 g/dL Normal 32-36 [facility] Comment on above: Order Comment: 107.1 Performed By: #### L 500.4050, L501.9985, L500.4100, L100.0500 #### [facility] [address] [place], [address] MCV (RBC) [Entitic vol] 90.8 fL Normal 80-94 [facility] Comment on above: Order Comment: 107.1 Performed By: #### L 500.4050, L501.9985, L500.4100, L100.0500 #### [facility] [address] [place], [address] Platelet mean volume (Bld) [Entitic vol] 11.6 fL Normal 6.2-12.0 [facility] Comment on above: Order Comment: 107.1 Performed By: #### L 500.4050, L501.9985, L500.4100, L100.0500 #### [facility] [address] [place], [address] Platelets (Bld) [#/Vol] 121 10*3/uL Low 150-450 [facility] Comment on above: Order Comment: 107.1 Performed By: #### L 500.4050, L501.9985, L500.4100, L100.0500 #### [facility] [address] [place], [address] RBC (Bld) [#/Vol] 4.44 10*6/uL Low 4.6-6.2 [facility] Comment on above: Order Comment: 107.1 Performed By: #### L 500.4050, L501.9985, L500.4100, L100.0500 #### [facility] [address] [place], [address] RDW SD 41.9 fl Normal 35.1-43.9 [facility] Comment on above: Order Comment: 107.1 Performed By: #### L 500.4050, L501.9985, L500.4100, L100.0500 #### [facility] [address] [place], [address] WBC (Bld) [#/Vol] 6.3 10*3/uL Normal 4.4-11.0 [facility] Comment on above: Order Comment: 107.1 Performed By: #### L 500.4050, L501.9985, L500.4100, L100.0500 #### [facility] [address] [place], [address] Carbon dioxide, total [Moles /volume] in Central venous bloodOrdered By: Demetrius Fenton on 01-07-2025 CO2 [Moles/Vol] 24.5 mmol/L 21.0-32.0 [facility] Chloride assayOrdered By: Travis Finch on 01-07-2025 Chloride [Moles/Vol] 100 mmol/L 98-[address] [facility] Comprehensive Metabolic Prof ilon 01-07-2025 Albumin [Mass/Vol] 3.7 g/dL Normal 3.4-4.8 [facility] Comment on above: Order Comment: 107.1 Performed By: #### L 500.4050, L501.9985, L500.4100, L100.0500 #### [facility] [address] [place], [address] Albumin/Globulin [Mass ratio] 1.6 {ratio} Normal 0.9-2.4 [facility] Comment on above: Order Comment: 107.1 Performed By: #### L 500.4050, L501.9985, L500.4100, L100.0500 #### [facility] [address] [place], [address] ALK PHOS 54 U/L Normal 40-129 [facility] Comment on above: Order Comment: 107.1 Performed By: #### L 500.4050, L501.9985, L500.4100, L100.0500 #### [facility] [address] [place], [address] ALT [Catalytic activity/Vol] 27 U/L Normal <=46 [facility] Comment on above: Order Comment: 107.1 Performed By: #### L 500.4050, L501.9985, L500.4100, L100.0500 #### [facility] [address] [place], [address] AST [Catalytic activity/Vol] 28 U/L Normal <=37 [facility] Comment on above: Order Comment: 107.1 Performed By: #### L 500.4050, L501.9985, L500.4100, L100.0500 #### [facility] [address] [place], [address] Bilirubin [Mass/Vol] 0.83 mg/dL Normal 0.00-1.[address] [facility] Comment on above: Order Comment: 107.1 Performed By: #### L 500.4050, L501.9985, L500.4100, L100.0500 #### [facility] [address] [place], [address] BUN/CRE 11.6 RATIO Normal 10-20 [facility] Comment on above: Order Comment: 107.1 Performed By: #### L 500.4050, L501.9985, L500.4100, L100.0500 #### [facility] [address] [place], [address] Calcium [Mass/Vol] 9.1 mg/dL Normal 7.6-11.0 [facility] Comment on above: Order Comment: 107.1 Performed By: #### L 500.4050, L501.9985, L500.4100, L100.0500 #### [facility] [address] [place], [address] Chloride [Moles/Vol] 100 mmol/L Normal 98-[address] [facility] Comment on above: Order Comment: 107.1 Performed By: #### L 500.4050, L501.9985, L500.4100, L100.0500 #### [facility] [address] [place], [address] CO2 [Moles/Vol] 24.5 mmol/L Normal 21.0-32.0 [facility] Comment on above: Order Comment: 107.1 Performed By: #### L 500.4050, L501.9985, L500.4100, L100.0500 #### [facility] [address] [place], [address] Creatinine [Mass/Vol] 1.06 mg/dL Normal 0.70-1.20 [facility] Comment on above: Order Comment: 107.1 Performed By: #### L 500.4050, L501.9985, L500.4100, L100.0500 #### [facility] [address] [place], [address] GAP 11 Normal 5-15 [facility] Comment on above: Order Comment: 107.1 Performed By: #### L 500.4050, L501.9985, L500.4100, L100.0500 #### [facility] [address] [place], [address] GFR/1.73 sq M.predicted among non-blacks MDRD (S/P/Bld) [Vol rate/Area] 79 mL/min/{1.73_m2} Normal >60 [facility] Comment on above: Order Comment: 107.1 Result Comment: mL/m in/1.73m2 CKD-EPI Creatinine Equation (2020) Performed By: #### L 500.4050, L501.9985, L500.4100, L100.0500 #### [facility] [address] [place], [address] Globulin (S) [Mass/Vol] 2.3 g/dL Normal 2.2-4.2 [facility] Comment on above: Order Comment: 107.1 Performed By: #### L 500.4050, L501.9985, L500.4100, L100.0500 #### [facility] [address] [place], [address] Glucose [Mass/Vol] 126 mg/dL High 70-99 [facility] Comment on above: Order Comment: 107.1 Performed By: #### L 500.4050, L501.9985, L500.4100, L100.0500 #### [facility] [address] [place], [address] Potassium [Moles/Vol] 4.6 mmol/L Normal 3.3-5.1 [facility] Comment on above: Order Comment: 107.1 Performed By: #### L 500.4050, L501.9985, L500.4100, L100.0500 #### [facility] [address] [place], [address] Sodium [Moles/Vol] 136 mmol/L Normal 133-145 [facility] Comment on above: Order Comment: 107.1 Performed By: #### L 500.4050, L501.9985, L500.4100, L100.0500 #### [facility] [address] [place], [address] T PROT 6.0 g/dL Normal 5.9-8.4 [facility] Comment on above: Order Comment: 107.1 Performed By: #### L 500.4050, L501.9985, L500.4100, L100.0500 #### [facility] [address] [place], [place], [address] Urea nitrogen [Mass/Vol] 12 mg/dL Normal 4-19 [facility] Comment on above: Order Comment: 107.1 Performed By: #### L 500.4050, L501.9981, L500.4100, L100.0500 #### [facility] [address] [place], [address] Erythrocyte distribution wid th ratioOrdered By: Demetrius Fenton on 01-07-2025 Erythrocyte distribution width (RBC) [Ratio] 12.9 % 11.6-14.6 [facility] Erythrocyte distribution wid th standard deviationOrdered By: Demetrius Fenton on 01-07-2025 Erythrocyte distribution width (RBC) [Ratio] 41.9 fl 35.1-43.9 [facility] Glomerular filtration rate ( GFR) estimation/1.73 sq m using serum, plasma, or whole bOrdered By: Demetrius Fenton on 01-07-2025 GFR/1.73 sq M.predicted among non-blacks MDRD (S/P/Bld) [Vol rate/Area] 79 mL/min/{1.73_m2} >60 [facility] Comment on above: mL/min/1.73m2 CKD-EP I Creatinine Equation (2020) Hematocrit Auto (Bld) [Volum e fraction]Ordered By: Demetrius Fenton on 01-07-2025 Hematocrit (Bld) [Volume fraction] 40.3 % 40-54 [facility] Hemoglobin measurementOrdere d By: Demetrius Fenton on 01-07-2025 Hemoglobin (Bld) [Mass/Vol] 13.9 g/dL 13.0-16.5 [facility] - Chemistry and C hemistry - challengeOrdered By: Demetrius Fenton on 01-07-2025 AST [Catalytic activity/Vol] 28 U/L <38 [facility] MCV (mean corpuscular volume ) determinationOrdered By: Demetrius Fenton on 01-07-2025 MCV (RBC) [Entitic vol] 90.8 fL 80-94 [facility] Mean corpuscular hemoglobin (MCH) determinationOrdered By: Demetrius Fenton on 01-07-2025 MCH (RBC) [Entitic mass] 31.3 pg 27.0-32.0 [facility] Mean corpuscular hemoglobin concentration (MCHC) determinationOrdered By: Demetrius Fenton on 01-07-2025 MCHC (RBC) [Mass/Vol] 34.5 g/dL 32-36 [facility] Mean platelet volume determi nationOrdered By: Demetrius Fenton on 01-07-2025 Platelet mean volume (Bld) [Entitic vol] 11.6 fL 6.2-12.0 [facility] Platelet countOrdered By: Travis Finch on 01-07-2025 Platelets (Bld) [#/Vol] 121 10*3/uL Low 150-450 [facility] Potassium measurement (mass/ volume)Ordered By: Demetrius Fenton on 01-07-2025 Potassium (Unsp spec) [Mass/Vol] 4.6 mmol/L 3.3-5.1 [facility] RBC Auto (Bld) [#/Vol]Ordere d By: Demetrius Fenton on 01-07-2025 RBC (Bld) [#/Vol] 4.44 10*6/uL Low 4.6-6.2 [facility] Serum creatinine measurement (mass/volume)Ordered By: Demetrius Fenton on 01-07-2025 Creatinine [Mass/Vol] 1.06 mg/dL 0.70-1.20 [facility] Serum globulin measurementOr dered By: Demetrius Fenton on 01-07-2025 Globulin (S) [Mass/Vol] 2.3 g/dL 2.2-4.2 [facility] Serum glucose measurement (m ass/volume)Ordered By: Demetrius Fenton on 01-07-2025 Glucose [Mass/Vol] 126 mg/dL High 70-99 [facility] Serum or plasma alanine joy otransferase (ALT) measurementOrdered By: Demetrius Fenton on 01-07-2025 ALT [Catalytic activity/Vol] 27 U/L <47 [facility] Serum or plasma albumin roseanne urement (mass/volume)Ordered By: Demetrius Fenton on 01-07-2025 Albumin [Mass/Vol] 3.7 g/dL 3.4-4.8 [facility] Serum or plasma albumin/glob ulin mass ratioOrdered By: Demetrius Fenton on 01-07-2025 Albumin/Globulin [Mass ratio] 1.6 {ratio} 0.9-2.4 [facility] Serum or plasma alkaline elsie sphatase measurementOrdered By: Demetrius Fenton on 01-07-2025 ALP [Catalytic activity/Vol] 54 U/L 40-129 [facility] Serum or plasma calcium roseanne urement (mass/volume)Ordered By: Demetrius Fenton on 01-07-2025 Calcium [Mass/Vol] 9.1 mg/dL 7.6-11.0 [facility] Serum or plasma urea nitroge n measurement (mass/volume)Ordered By: Demetrius Fenton on 01-07-2025 Urea nitrogen [Mass/Vol] 12 mg/dL 4-19 [facility] Serum or plasma valproate me asurement (mass/volume)Ordered By: Demetrius Fentno on 01-07-2025 Valproate [Mass/Vol] 37 ug/mL Low 50-[address] [facility] Comment on above: Valproic Acid concen trations >100 ug/mL are potentially toxic. Sodium levelOrdered By: Angel Fenton on 01-07-2025 Sodium [Moles/Vol] 136 mmol/L 133-145 [facility] Total proteinOrdered By: Miriam Fenton on 01-07-2025 Protein [Mass/Vol] 6.0 g/dL 5.9-8.4 [facility] Valproic Acid (Depakene) Lev alison 01-07-2025 VALPROIC ACID 37 ug/mL Low 50-100 [facility] Comment on above: Order Comment: 107.1 Result Comment: Valp roic Acid concentrations >100 ug/mL are potentially toxic. Performed By: #### L 500.4057, L501.9924, L500.2660, L100.0500 #### [facility] [address] [place], [address] White blood cell (WBC) count Ordered By: Demetrius Fenton on 01-07-2025 WBC (Bld) [#/Vol] 6.3 10*3/uL 4.4-11.0 [facility] Serum or plasma valproate me asurement (mass/volume)Ordered By: Demetrius Fenton on 12-10-2024 Valproate [Mass/Vol] 59 ug/mL 50-[address] [facility] Comment on above: Valproic Acid concen trations >100 ug/mL are potentially toxic. Valproic Acid (Depakene) Lev alison 12-10-2024 VALPROIC ACID 59 ug/mL Normal 50-100 [facility] Comment on above: Order Comment: 107.1 Result Comment: Valp roic Acid concentrations >100 ug/mL are potentially toxic. Performed By: #### L 501.8100 #### [facility] [address] [place], [address] Anion gap in Serum or Plasma Ordered By: Demetrius Fenton on 12-05-2024 Anion gap [Moles/Vol] 14 mmol/L 5-15 [facility] BUN/creatinine ratioOrdered By: Demetrius Fenton on 12-05-2024 Urea nitrogen/Creatinine [Mass ratio] 15.8 mg/mg 10-20 [facility] Basic Metabolic Profile (BMP )on 12-05-2024 BUN/CRE 15.8 RATIO Normal -20 [facility] Comment on above: Order Comment: 107.1 Performed By: #### L 500.4050, L501.9985, L500.4100, L100.0500 #### [facility] [address] [place], [address] Calcium [Mass/Vol] 9.2 mg/dL Normal 7.6-11.0 [facility] Comment on above: Order Comment: 107.1 Performed By: #### L 500.4050, L501.9985, L500.4100, L100.0500 #### [facility] [address] [place], [address] Chloride [Moles/Vol] 100 mmol/L Normal 98-[address] [facility] Comment on above: Order Comment: 107.1 Performed By: #### L 500.4050, L501.9985, L500.4100, L100.0500 #### [facility] [address] [place], [address] CO2 [Moles/Vol] 22.8 mmol/L Normal 21.0-32.0 [facility] Comment on above: Order Comment: 107.1 Performed By: #### L 500.4050, L501.9985, L500.4100, L100.0500 #### [facility] [address] [place], [address] Creatinine [Mass/Vol] 1.11 mg/dL Normal 0.70-1.20 [facility] Comment on above: Order Comment: 107.1 Performed By: #### L 500.4050, L501.9985, L500.4100, L100.0500 #### [facility] [address] [place], [address] GAP 14 Normal 5-15 [facility] Comment on above: Order Comment: 107.1 Performed By: #### L 500.4050, L501.9985, L500.4100, L100.0500 #### [facility] [address] [place], [address] GFR/1.73 sq M.predicted among non-blacks MDRD (S/P/Bld) [Vol rate/Area] 75 mL/min/{1.73_m2} Normal >60 [facility] Comment on above: Order Comment: 107.1 Result Comment: mL/m in/1.73m2 CKD-EPI Creatinine Equation (2020) Performed By: #### L 500.4050, L501.9985, L500.4100, L100.0500 #### [facility] [address] [place], [address] Glucose [Mass/Vol] 144 mg/dL High 70-99 [facility] Comment on above: Order Comment: 107.1 Performed By: #### L 500.4050, L501.9985, L500.4100, L100.0500 #### [facility] [address] [place], [address] Potassium [Moles/Vol] 4.7 mmol/L Normal 3.3-5.1 [facility] Comment on above: Order Comment: 107.1 Performed By: #### L 500.4050, L501.9985, L500.4100, L100.0500 #### [facility] [address] [place], [address] Sodium [Moles/Vol] 136 mmol/L Normal 133-145 [facility] Comment on above: Order Comment: 107.1 Performed By: #### L 500.4050, L501.9985, L500.4100, L100.0500 #### [facility] [address] [place], [address] Urea nitrogen [Mass/Vol] 18 mg/dL Normal 4-19 [facility] Comment on above: Order Comment: 107.1 Performed By: #### L 500.4050, L501.9985, L500.4100, L100.0500 #### [facility] [address] [place], [address] CBC-Complete Blood Cnt No Di ffon 12-05-2024 Erythrocyte distribution width (RBC) [Ratio] 12.5 % Normal 11.6-14.6 [facility] Comment on above: Order Comment: 107.1 Performed By: #### L 500.4050, L501.9985, L500.4100, L100.0500 #### [facility] [address] [place], [address] Hematocrit (Bld) [Volume fraction] 42.6 % Normal 40-54 [facility] Comment on above: Order Comment: 107.1 Performed By: #### L 500.4050, L501.9985, L500.4100, L100.0500 #### [facility] [address] [place], [address] Hemoglobin (Bld) [Mass/Vol] 15.0 g/dL Normal 13.0-16.5 [facility] Comment on above: Order Comment: 107.1 Performed By: #### L 500.4050, L501.9985, L500.4100, L100.0500 #### [facility] [address] [place], [address] MCH (RBC) [Entitic mass] 31.3 pg Normal 27.0-32.0 [facility] Comment on above: Order Comment: 107.1 Performed By: #### L 500.4050, L501.9985, L500.4100, L100.0500 #### [facility] [address] [place], [address] MCHC (RBC) [Mass/Vol] 35.2 g/dL Normal 32-36 [facility] Comment on above: Order Comment: 107.1 Performed By: #### L 500.4050, L501.9985, L500.4100, L100.0500 #### [facility] [address] [place], [address] MCV (RBC) [Entitic vol] 88.8 fL Normal 80-94 [facility] Comment on above: Order Comment: 107.1 Performed By: #### L 500.4050, L501.9985, L500.4100, L100.0500 #### [facility] [address] [place], [address] Platelet mean volume (Bld) [Entitic vol] 11.2 fL Normal 6.2-12.0 [facility] Comment on above: Order Comment: 107.1 Performed By: #### L 500.4050, L501.9985, L500.4100, L100.0500 #### [facility] [address] [place], [address] Platelets (Bld) [#/Vol] 117 10*3/uL Low 150-450 [facility] Comment on above: Order Comment: 107.1 Performed By: #### L 500.4050, L501.9985, L500.4100, L100.0500 #### [facility] [address] [place], [address] RBC (Bld) [#/Vol] 4.80 10*6/uL Normal 4.6-6.2 [facility] Comment on above: Order Comment: 107.1 Performed By: #### L 500.4050, L501.9985, L500.4100, L100.0500 #### [facility] [address] [place], [address] RDW SD 40.2 fl Normal 35.1-43.9 [facility] Comment on above: Order Comment: 107.1 Performed By: #### L 500.4050, L501.9985, L500.4100, L100.0500 #### [facility] [address] [place], [address] WBC (Bld) [#/Vol] 7.8 10*3/uL Normal 4.4-11.0 [facility] Comment on above: Order Comment: 107.1 Performed By: #### L 500.4050, L501.9985, L500.4100, L100.0500 #### [facility] [address] [place], [address] Carbon dioxide, total [Moles /volume] in Central venous bloodOrdered By: Demetrius Fenton on 12-05-2024 CO2 [Moles/Vol] 22.8 mmol/L 21.0-32.0 [facility] Chloride assayOrdered By: Travis Finch on 12-05-2024 Chloride [Moles/Vol] 100 mmol/L 98-[address] [facility] Erythrocyte distribution wid th ratioOrdered By: Demetrius Fenton on 12-05-2024 Erythrocyte distribution width (RBC) [Ratio] 12.5 % 11.6-14.6 [facility] Erythrocyte distribution wid th standard deviationOrdered By: Demetrius Fenton on 12-05-2024 Erythrocyte distribution width (RBC) [Ratio] 40.2 fl 35.1-43.9 [facility] Glomerular filtration rate ( GFR) estimation/1.73 sq m using serum, plasma, or whole bOrdered By: Demetrius Fenton on 12-05-2024 GFR/1.73 sq M.predicted among non-blacks MDRD (S/P/Bld) [Vol rate/Area] 75 mL/min/{1.73_m2} >60 [facility] Comment on above: mL/min/1.73m2 CKD-EP I Creatinine Equation (2020) Hematocrit Auto (Bld) [Volum e fraction]Ordered By: Demetrius Fenton on 12-05-2024 Hematocrit (Bld) [Volume fraction] 42.6 % 40-54 [facility] Hemoglobin measurementOrdere d By: Demetrius Fenton on 12-05-2024 Hemoglobin (Bld) [Mass/Vol] 15.0 g/dL 13.0-16.5 [facility] MCV (mean corpuscular volume ) determinationOrdered By: Demetrius Fenton on 12-05-2024 MCV (RBC) [Entitic vol] 88.8 fL 80-94 [facility] Mean corpuscular hemoglobin (MCH) determinationOrdered By: Demetrius Fenton on 12-05-2024 MCH (RBC) [Entitic mass] 31.3 pg 27.0-32.0 [facility] Mean corpuscular hemoglobin concentration (MCHC) determinationOrdered By: Demetrius Fenton on 12-05-2024 MCHC (RBC) [Mass/Vol] 35.2 g/dL 32-36 [facility] Mean platelet volume determi nationOrdered By: Demetrius Fenton on 12-05-2024 Platelet mean volume (Bld) [Entitic vol] 11.2 fL 6.2-12.0 [facility] Platelet countOrdered By: Travis Finch on 12-05-2024 Platelets (Bld) [#/Vol] 117 10*3/uL Low 150-450 [facility] Potassium measurement (mass/ volume)Ordered By: Demetrius Fenton on 12-05-2024 Potassium (Unsp spec) [Mass/Vol] 4.7 mmol/L 3.3-5.1 [facility] RBC Auto (Bld) [#/Vol]Ordere d By: Demetrius Fenton on 12-05-2024 RBC (Bld) [#/Vol] 4.80 10*6/uL 4.6-6.2 [facility] Serum creatinine measurement (mass/volume)Ordered By: Demetrius Fenton on 12-05-2024 Creatinine [Mass/Vol] 1.11 mg/dL 0.70-1.20 [facility] Serum glucose measurement (m ass/volume)Ordered By: Demetrius Fenton on 12-05-2024 Glucose [Mass/Vol] 144 mg/dL High 70-99 [facility] Serum or plasma calcium roseanne urement (mass/volume)Ordered By: Demetrius Fenton on 12-05-2024 Calcium [Mass/Vol] 9.2 mg/dL 7.6-11.0 [facility] Serum or plasma urea nitroge n measurement (mass/volume)Ordered By: Demetrius Fenton on 12-05-2024 Urea nitrogen [Mass/Vol] 18 mg/dL 4-19 [facility] Sodium levelOrdered By: Angel Fenton on 12-05-2024 Sodium [Moles/Vol] 136 mmol/L 133-145 [facility] White blood cell (WBC) count Ordered By: Demetrius Fenton on 12-05-2024 WBC (Bld) [#/Vol] 7.8 10*3/uL 4.4-11.0 [facility] Anion gap in Serum or Plasma Ordered By: Gunnar Cummings on 10-21-2024 Anion gap [Moles/Vol] 15 mmol/L 5- [facility] BUN/creatinine ratioOrdered By: Gunnar Cummings on 10-21-2024 Urea nitrogen/Creatinine [Mass ratio] 14.2 mg/mg 10- [facility] Basic Metabolic Profile (BMP )on 10-21-2024 BUN/CRE 14.2 RATIO Normal - [facility] Comment on above: Order Comment: 107.1 Performed By: #### L 500.4050, L501.9985, L500.4100, L100.0500 #### [facility] [address] [place], [address] Calcium [Mass/Vol] 9.3 mg/dL Normal 7.6-11.0 [facility] Comment on above: Order Comment: 107.1 Performed By: #### L 500.4050, L501.9985, L500.4100, L100.0500 #### [facility] [address] [place], [address] Chloride [Moles/Vol] 100 mmol/L Normal 98-[address] [facility] Comment on above: Order Comment: 107.1 Performed By: #### L 500.4050, L501.9985, L500.4100, L100.0500 #### [facility] [address] [place], [address] CO2 [Moles/Vol] 21.7 mmol/L Normal 21.0-32.0 [facility] Comment on above: Order Comment: 107.1 Performed By: #### L 500.4050, L501.9985, L500.4100, L100.0500 #### [facility] [address] [place], [address] Creatinine [Mass/Vol] 1.07 mg/dL Normal 0.70-1.20 [facility] Comment on above: Order Comment: 107.1 Performed By: #### L 500.4050, L501.9985, L500.4100, L100.0500 #### [facility] [address] [place], [address] GAP 15 Normal 5-15 [facility] Comment on above: Order Comment: 107.1 Performed By: #### L 500.4050, L501.9985, L500.4100, L100.0500 #### [facility] [address] [place], [address] GFR/1.73 sq M.predicted among non-blacks MDRD (S/P/Bld) [Vol rate/Area] 79 mL/min/{1.73_m2} Normal >60 [facility] Comment on above: Order Comment: 107.1 Result Comment: mL/m in/1.73m2 CKD-EPI Creatinine Equation (2020) Performed By: #### L 500.4050, L501.9985, L500.4100, L100.0500 #### [facility] [address] [place], [address] Glucose [Mass/Vol] 117 mg/dL High 70-99 [facility] Comment on above: Order Comment: 107.1 Performed By: #### L 500.4050, L501.9985, L500.4100, L100.0500 #### [facility] [address] [place], [address] Potassium [Moles/Vol] 4.7 mmol/L Normal 3.3-5.1 [facility] Comment on above: Order Comment: 107.1 Performed By: #### L 500.4050, L501.9985, L500.4100, L100.0500 #### [facility] [address] [place], [address] Sodium [Moles/Vol] 137 mmol/L Normal 133-145 [facility] Comment on above: Order Comment: 107.1 Performed By: #### L 500.4050, L501.9985, L500.4100, L100.0500 #### [facility] [address] [place], [address] Urea nitrogen [Mass/Vol] 15 mg/dL Normal 4-19 [facility] Comment on above: Order Comment: 107.1 Performed By: #### L 500.4050, L501.9985, L500.4100, L100.0500 #### [facility] [address] [place], [address] CBC-Complete Blood Cnt No Di ffon 10-21-2024 Erythrocyte distribution width (RBC) [Ratio] 12.9 % Normal 11.6-14.6 [facility] Comment on above: Order Comment: 107.1 Performed By: #### L 500.4050, L501.9985, L500.4100, L100.0500 #### [facility] [address] [place], [address] Hematocrit (Bld) [Volume fraction] 41.9 % Normal 40-54 [facility] Comment on above: Order Comment: 107.1 Performed By: #### L 500.4050, L501.9985, L500.4100, L100.0500 #### [facility] [address] [place], [address] Hemoglobin (Bld) [Mass/Vol] 14.3 g/dL Normal 13.0-16.5 [facility] Comment on above: Order Comment: 107.1 Performed By: #### L 500.4050, L501.9985, L500.4100, L100.0500 #### [facility] [address] [place], [address] MCH (RBC) [Entitic mass] 31.6 pg Normal 27.0-32.0 [facility] Comment on above: Order Comment: 107.1 Performed By: #### L 500.4050, L501.9985, L500.4100, L100.0500 #### [facility] [address] [place], [address] MCHC (RBC) [Mass/Vol] 34.1 g/dL Normal 32-36 [facility] Comment on above: Order Comment: 107.1 Performed By: #### L 500.4050, L501.9985, L500.4100, L100.0500 #### [facility] [address] [place], [address] MCV (RBC) [Entitic vol] 92.5 fL Normal 80-94 [facility] Comment on above: Order Comment: 107.1 Performed By: #### L 500.4050, L501.9985, L500.4100, L100.0500 #### [facility] [address] [place], [address] Platelet mean volume (Bld) [Entitic vol] 11.3 fL Normal 6.2-12.0 [facility] Comment on above: Order Comment: 107.1 Performed By: #### L 500.4050, L501.9985, L500.4100, L100.0500 #### [facility] [address] [place], [address] Platelets (Bld) [#/Vol] 131 10*3/uL Low 150-450 [facility] Comment on above: Order Comment: 107.1 Performed By: #### L 500.4050, L501.9985, L500.4100, L100.0500 #### [facility] [address] [place], [address] RBC (Bld) [#/Vol] 4.53 10*6/uL Low 4.6-6.2 [facility] Comment on above: Order Comment: 107.1 Performed By: #### L 500.4050, L501.9985, L500.4100, L100.0500 #### [facility] [address] [place], [address] RDW SD 42.5 fl Normal 35.1-43.9 [facility] Comment on above: Order Comment: 107.1 Performed By: #### L 500.4050, L501.9985, L500.4100, L100.0500 #### [facility] [address] [place], [address] WBC (Bld) [#/Vol] 8.9 10*3/uL Normal 4.4-11.0 [facility] Comment on above: Order Comment: 107.1 Performed By: #### L 500.4050, L501.9932, L500.4100, L100.0500 #### [facility] [address] [place], [address] Carbon dioxide, total [Moles /volume] in Central venous bloodOrdered By: Gunnar Cummings on 10-21-2024 CO2 [Moles/Vol] 21.7 mmol/L 21.0-32.0 [facility] Chloride assayOrdered By: Sosa Cummings on 10-21-2024 Chloride [Moles/Vol] 100 mmol/L 98-[address] [facility] Erythrocyte distribution wid th ratioOrdered By: Gunnar Cummings on 10-21-2024 Erythrocyte distribution width (RBC) [Ratio] 12.9 % 11.6-14.6 [facility] Erythrocyte distribution wid th standard deviationOrdered By: Gunnar Cummings on 10-21-2024 Erythrocyte distribution width (RBC) [Ratio] 42.5 fl 35.1-43.9 [facility] Glomerular filtration rate ( GFR) estimation/1.73 sq m using serum, plasma, or whole bOrdered By: Gunnar Cummings on 10-21-2024 GFR/1.73 sq M.predicted among non-blacks MDRD (S/P/Bld) [Vol rate/Area] 79 mL/min/{1.73_m2} >60 [facility] Comment on above: mL/min/1.73m2 CKD-EP I Creatinine Equation (2020) Hematocrit Auto (Bld) [Volum e fraction]Ordered By: Gunnar Cummings on 10-21-2024 Hematocrit (Bld) [Volume fraction] 41.9 % 40-54 [facility] Hemoglobin measurementOrdere d By: Gunnar Cummings on 10-21-2024 Hemoglobin (Bld) [Mass/Vol] 14.3 g/dL 13.0-16.5 [facility] MCV (mean corpuscular volume ) determinationOrdered By: Gunnar Cummings 10-21-2024 MCV (RBC) [Entitic vol] 92.5 fL 80-94 [facility] Mean corpuscular hemoglobin (MCH) determinationOrdered By: Gunnar Cummings on 10-21-2024 MCH (RBC) [Entitic mass] 31.6 pg 27.0-32.0 [facility] Mean corpuscular hemoglobin concentration (MCHC) determinationOrdered By: Gunnar Cummings on 10-21-2024 MCHC (RBC) [Mass/Vol] 34.1 g/dL 32-36 [facility] Mean platelet volume determi nationOrdered By: Gunnar Cummings on 10-21-2024 Platelet mean volume (Bld) [Entitic vol] 11.3 fL 6.2-12.0 [facility] Platelet countOrdered By: Sosa Cummings on 10-21-2024 Platelets (Bld) [#/Vol] 131 10*3/uL Low 150-450 [facility] Potassium measurement (mass/ volume)Ordered By: Gunnar Cummings on 10-21-2024 Potassium (Unsp spec) [Mass/Vol] 4.7 mmol/L 3.3-5.1 [facility] RBC Auto (Bld) [#/Vol]Ordere d By: Gunnar Cummings on 10-21-2024 RBC (Bld) [#/Vol] 4.53 10*6/uL Low 4.6-6.2 [facility] Serum creatinine measurement (mass/volume)Ordered By: Gunnar Cummings on 10-21-2024 Creatinine [Mass/Vol] 1.07 mg/dL 0.70-1.20 [facility] Serum glucose measurement (m ass/volume)Ordered By: Gunnar Cummings on 10-21-2024 Glucose [Mass/Vol] 117 mg/dL High 70-99 [facility] Serum or plasma calcium roseanne urement (mass/volume)Ordered By: Gunnar Cummings on 10-21-2024 Calcium [Mass/Vol] 9.3 mg/dL 7.6-11.0 [facility] Serum or plasma urea nitroge n measurement (mass/volume)Ordered By: Gunnar Cummings on 10-21-2024 Urea nitrogen [Mass/Vol] 15 mg/dL 4-19 [facility] Sodium levelOrdered By: José Miguel Cummings on 10-21-2024 Sodium [Moles/Vol] 137 mmol/L 133-145 [facility] White blood cell (WBC) count Ordered By: Gunnar Cummings on 10-21-2024 WBC (Bld) [#/Vol] 8.9 10*3/uL 4.4-11.0 [facility] CBC-Complete Blood Cnt No Di ffon 09-20-2024 Erythrocyte distribution width (RBC) [Ratio] 12.9 % Normal 11.6-14.6 [facility] Comment on above: Order Comment: 107-1 Performed By: #### L 500.4050, L501.9985, L500.4100, L100.0500 #### [facility] [address] [place], [address] Hematocrit (Bld) [Volume fraction] 40.0 % Normal 40-54 [facility] Comment on above: Order Comment: 107-1 Performed By: #### L 500.4050, L501.9985, L500.4100, L100.0500 #### [facility] [address] [place], [address] Hemoglobin (Bld) [Mass/Vol] 13.8 g/dL Normal 13.0-16.5 [facility] Comment on above: Order Comment: 107-1 Performed By: #### L 500.4050, L501.9985, L500.4100, L100.0500 #### [facility] [address] [place], [address] MCH (RBC) [Entitic mass] 31.6 pg Normal 27.0-32.0 [facility] Comment on above: Order Comment: 107-1 Performed By: #### L 500.4050, L501.9985, L500.4100, L100.0500 #### [facility] [address] [place], [address] MCHC (RBC) [Mass/Vol] 34.5 g/dL Normal 32-36 [facility] Comment on above: Order Comment: 107-1 Performed By: #### L 500.4050, L501.9985, L500.4100, L100.0500 #### [facility] [address] [place], [address] MCV (RBC) [Entitic vol] 91.5 fL Normal 80-94 [facility] Comment on above: Order Comment: 107-1 Performed By: #### L 500.4050, L501.9985, L500.4100, L100.0500 #### [facility] [address] [place], [address] Platelet mean volume (Bld) [Entitic vol] 10.7 fL Normal 6.2-12.0 [facility] Comment on above: Order Comment: 107-1 Performed By: #### L 500.4050, L501.9985, L500.4100, L100.0500 #### [facility] [address] [place], [address] Platelets (Bld) [#/Vol] 118 10*3/uL Low 150-450 [facility] Comment on above: Order Comment: 107-1 Performed By: #### L 500.4050, L501.9985, L500.4100, L100.0500 #### [facility] [address] [place], [address] RBC (Bld) [#/Vol] 4.37 10*6/uL Low 4.6-6.2 [facility] Comment on above: Order Comment: 107-1 Performed By: #### L 500.4050, L501.9985, L500.4100, L100.0500 #### [facility] [address] [place], [address] RDW SD 41.6 fl Normal 35.1-43.9 [facility] Comment on above: Order Comment: 107-1 Performed By: #### L 500.4050, L501.9985, L500.4100, L100.0500 #### [facility] [address] [place], [address] WBC (Bld) [#/Vol] 7.0 10*3/uL Normal 4.4-11.0 [facility] Comment on above: Order Comment: 107-1 Performed By: #### L 500.4050, L501.9985, L500.4100, L100.0500 #### [facility] [address] [place], [address] Comprehensive Metabolic Prof ilon 09-20-2024 Albumin [Mass/Vol] 3.6 g/dL Normal 3.4-4.8 [facility] Comment on above: Order Comment: 107-1 Performed By: #### L 500.4050, L501.9985, L500.4100, L100.0500 #### [facility] [address] [place], [address] Albumin/Globulin [Mass ratio] 1.5 {ratio} Normal 0.9-2.4 [facility] Comment on above: Order Comment: 107-1 Performed By: #### L 500.4050, L501.9985, L500.4100, L100.0500 #### [facility] [address] [place], [address] ALK PHOS 60 U/L Normal 40-129 [facility] Comment on above: Order Comment: 107-1 Performed By: #### L 500.4050, L501.9985, L500.4100, L100.0500 #### [facility] [address] [place], [address] ALT [Catalytic activity/Vol] 30 U/L Normal <=46 [facility] Comment on above: Order Comment: 107-1 Performed By: #### L 500.4050, L501.9985, L500.4100, L100.0500 #### [facility] [address] [place], [address] AST [Catalytic activity/Vol] 31 U/L Normal <=37 [facility] Comment on above: Order Comment: 107-1 Performed By: #### L 500.4050, L501.9985, L500.4100, L100.0500 #### [facility] [address] [place], [address] Bilirubin [Mass/Vol] 0.68 mg/dL Normal 0.00-1.[address] [facility] Comment on above: Order Comment: 107-1 Performed By: #### L 500.4050, L501.9985, L500.4100, L100.0500 #### [facility] [address] [place], [address] BUN/CRE 16.6 RATIO Normal 10-20 [facility] Comment on above: Order Comment: 107-1 Performed By: #### L 500.4050, L501.9985, L500.4100, L100.0500 #### [facility] [address] [place], [place], [address] Calcium [Mass/Vol] 9.1 mg/dL Normal 7.6-11.0 [facility] Comment on above: Order Comment: 107-1 Performed By: #### L 500.4050, L501.9985, L500.4100, L100.0500 #### [facility] [address] [place], [address] Chloride [Moles/Vol] 101 mmol/L Normal 98-[address] [facility] Comment on above: Order Comment: 107-1 Performed By: #### L 500.4050, L501.9985, L500.4100, L100.0500 #### [facility] [address] [place], [address] CO2 [Moles/Vol] 25.7 mmol/L Normal 21.0-32.0 [facility] Comment on above: Order Comment: 107-1 Performed By: #### L 500.4050, L501.9985, L500.4100, L100.0500 #### [facility] [address] [place], [address] Creatinine [Mass/Vol] 1.16 mg/dL Normal 0.70-1.20 [facility] Comment on above: Order Comment: 107-1 Performed By: #### L 500.4050, L501.9985, L500.4100, L100.0500 #### [facility] [address] [place], [address] GAP 10 Normal 5-15 [facility] Comment on above: Order Comment: 107-1 Performed By: #### L 500.4050, L501.9985, L500.4100, L100.0500 #### [facility] [address] [place], [address] GFR/1.73 sq M.predicted among non-blacks MDRD (S/P/Bld) [Vol rate/Area] 72 mL/min/{1.73_m2} Normal >60 [facility] Comment on above: Order Comment: 107-1 Result Comment: mL/m in/1.73m2 CKD-EPI Creatinine Equation (2020) Performed By: #### L 500.4050, L501.9985, L500.4100, L100.0500 #### [facility] [address] [place], [address] Globulin (S) [Mass/Vol] 2.4 g/dL Normal 2.2-4.2 [facility] Comment on above: Order Comment: 107-1 Performed By: #### L 500.4050, L501.9985, L500.4100, L100.0500 #### [facility] [address] [place], [address] Glucose [Mass/Vol] 125 mg/dL High 70-99 [facility] Comment on above: Order Comment: 107-1 Performed By: #### L 500.4050, L501.9985, L500.4100, L100.0500 #### [facility] [address] [place], [address] Potassium [Moles/Vol] 4.4 mmol/L Normal 3.3-5.1 [facility] Comment on above: Order Comment: 107-1 Performed By: #### L 500.4050, L501.9985, L500.4100, L100.0500 #### [facility] [address] [place], [address] Sodium [Moles/Vol] 137 mmol/L Normal 133-145 [facility] Comment on above: Order Comment: 107-1 Performed By: #### L 500.4050, L501.9985, L500.4100, L100.0500 #### [facility] [address] [place], [address] T PROT 6.0 g/dL Normal 5.9-8.4 [facility] Comment on above: Order Comment: 107-1 Performed By: #### L 500.4050, L501.9985, L500.4100, L100.0500 #### [facility] [address] [place], [address] Urea nitrogen [Mass/Vol] 19 mg/dL Normal 4-19 [facility] Comment on above: Order Comment: 107-1 Performed By: #### L 500.4050, L501.9985, L500.4100, L100.0500 #### [facility] [address] [place], [address] Hemoglobin A1con 09-20-2024 HbA1c (Bld) [Mass fraction] 6.9 % High <=5.6 [facility] Comment on above: Order Comment: 107-1 Result Comment: Norm al < 5.7 % Prediabetic 5.7 - 6.4 % Diabetic >or= 6.5 % Please note range changes. Performed By: #### L 500.4050, L501.9985, L500.4100, L100.0500 #### [facility] [address] [place], [address] Lipid Profileon 09-20-2024 CHOL:HDL 2.73 Normal [facility] Comment on above: Order Comment: 107-1 Performed By: #### L 500.4050, L501.9985, L500.4100, L100.0500 #### [facility] [address] [place], [address] Cholesterol [Mass/Vol] 106 mg/dL Normal <=200 [facility] Comment on above: Order Comment: 107-1 Result Comment: Chol esterol level, Desirable <200 mg/dL Borderline high cholesterol 200-239 mg/dL High cholesterol >=240 mg/dL Recommendations of the NCEP Adult Treatment Panel for the following risk-cutoff thresholds for the [place] population. Performed By: #### L 500.4050, L501.9985, L500.4100, L100.0500 #### [facility] [address] [place], [address] Cholesterol in HDL [Mass/Vol] 39 mg/dL Low [facility] Comment on above: Order Comment: 107-1 Result Comment: Jen onal Cholesterol Education Program (NCEP) guidelines: <40 mg/dL: Low HDL-cholesterol (major risk factor for CHD) >= 60 mg/dL: High HDL-cholesterol (negative risk factor for CHD) HDL-cholesterol is affected by a number of factors, e.g. smoking, exercise, hormones, sex and age. Performed By: #### L 500.4050, L501.9985, L500.4100, L100.0500 #### [facility] [address] [place], [address] Cholesterol in LDL [Mass/Vol] 46 mg/dL Normal [facility] Comment on above: Order Comment: 107-1 Result Comment: Bord irvgdu=635-145 mg/dL Higher Bpzk=215 mg/dL or greater Performed By: #### L 500.4050, L501.9985, L500.4100, L100.0500 #### [facility] [address] [place], [address] Cholesterol in VLDL [Mass/Vol] 22 mg/dL Normal 5-40 [facility] Comment on above: Order Comment: 107-1 Performed By: #### L 500.4050, L501.9985, L500.4100, L100.0500 #### [facility] [address] [place], [address] Triglyceride [Mass/Vol] 108 mg/dL Normal [facility] Comment on above: Order Comment: 107-1 Result Comment: The drugs N-Acetylcysteine and Metamizole may falsely depress this assay. Normal range: <150 mg/dL Borderline High: 150-199 mg/dL High: 200-499 mg/dL Very High: >500 mg/dL Performed By: #### L 500.4050, L501.9985, L500.4100, L100.0500 #### [facility] [address] [place], [address] Serum or plasma valproate me asurement (mass/volume)Ordered By: Demetrius Fenton on 07-29-2024 Valproate [Mass/Vol] 57 ug/mL 50-[address] [facility] Comment on above: Valproic Acid concen trations >100 ug/mL are potentially toxic. Valproic Acid (Depakene) Lev alison 07-29-2024 VALPROIC ACID 57 ug/mL Normal 50-100 [facility] Comment on above: Order Comment: 107.1 Result Comment: Valp roic Acid concentrations >100 ug/mL are potentially toxic. Performed By: #### L 501.8100 #### [facility] [address] [place], [address] Anion gap in Serum or Plasma Ordered By: Demetrius Fenton on 07-22-2024 Anion gap [Moles/Vol] 14 mmol/L 08-22 [facility] BUN/creatinine ratioOrdered By: Demetrius Fenton on 07-22-2024 Urea nitrogen/Creatinine [Mass ratio] 11.2 mg/mg 01-27 [facility] Basic Metabolic Profile (BMP )on 07-22-2024 BUN/CRE 11.2 RATIO Normal 01-27 [facility] Comment on above: Order Comment: 107.1 Performed By: #### L 100.0500, L500.2500 #### [facility] [address] [place], [address] Calcium [Mass/Vol] 9.1 mg/dL Normal 7.6-11.0 [facility] Comment on above: Order Comment: 107.1 Performed By: #### L 100.0500, L500.2500 #### [facility] [address] [place], [address] Chloride [Moles/Vol] 97 mmol/L Low 98-[address] [facility] Comment on above: Order Comment: 107.1 Performed By: #### L 100.0500, L500.2500 #### [facility] [address] [place], [address] CO2 [Moles/Vol] 21.4 mmol/L Normal 21.0-32.0 [facility] Comment on above: Order Comment: 107.1 Performed By: #### L 100.0500, L500.2500 #### [facility] [address] [place], [address] Creatinine [Mass/Vol] 1.20 mg/dL Normal 0.70-1.20 [facility] Comment on above: Order Comment: 107.1 Performed By: #### L 100.0500, L500.2500 #### [facility] [address] [place], [address] GAP 14 Normal 08-22 [facility] Comment on above: Order Comment: 107.1 Performed By: #### L 100.0500, L500.2500 #### [facility] [address] [place], [address] GFR/1.73 sq M.predicted among non-blacks MDRD (S/P/Bld) [Vol rate/Area] 69 mL/min/{1.73_m2} Normal >60 [facility] Comment on above: Order Comment: 107.1 Result Comment: mL/m in/1.73m2 CKD-EPI Creatinine Equation (2020) Performed By: #### L 100.0500, L500.2500 #### [facility] [address] [place], [address] Glucose [Mass/Vol] 184 mg/dL High 70-99 [facility] Comment on above: Order Comment: 107.1 Performed By: #### L 100.0500, L500.2500 #### [facility] [address] [place], [address] Potassium [Moles/Vol] 4.4 mmol/L Normal 3.3-5.1 [facility] Comment on above: Order Comment: 107.1 Performed By: #### L 100.0500, L500.2500 #### [facility] [address] [place], [address] Sodium [Moles/Vol] 132 mmol/L Low 133-145 [facility] Comment on above: Order Comment: 107.1 Performed By: #### L 100.0500, L500.2500 #### [facility] [address] [place], [address] Urea nitrogen [Mass/Vol] 13 mg/dL Normal 4-19 [facility] Comment on above: Order Comment: 107.1 Performed By: #### L 100.0500, L500.2500 #### [facility] [address] [place], [address] CBC-Complete Blood Cnt No Di yoelon 07-22-2024 Erythrocyte distribution width (RBC) [Ratio] 13.0 % Normal 11.6-14.6 [facility] Comment on above: Order Comment: 107.1 Performed By: #### L 100.0500, L500.2500 #### [facility] [address] [place], [address] Hematocrit (Bld) [Volume fraction] 41.7 % Normal 40-54 [facility] Comment on above: Order Comment: 107.1 Performed By: #### L 100.0500, L500.2500 #### [facility] [address] [place], [address] Hemoglobin (Bld) [Mass/Vol] 14.6 g/dL Normal 13.0-16.5 [facility] Comment on above: Order Comment: 107.1 Performed By: #### L 100.0500, L500.2500 #### [facility] [address] [place], [address] MCH (RBC) [Entitic mass] 32.4 pg High 27.0-32.0 [facility] Comment on above: Order Comment: 107.1 Performed By: #### L 100.0500, L500.2500 #### [facility] [address] [place], [address] MCHC (RBC) [Mass/Vol] 35.0 g/dL Normal 32-36 [facility] Comment on above: Order Comment: 107.1 Performed By: #### L 100.0500, L500.2500 #### [facility] [address] [place], [address] MCV (RBC) [Entitic vol] 92.7 fL Normal 80-94 [facility] Comment on above: Order Comment: 107.1 Performed By: #### L 100.0500, L500.2500 #### [facility] [address] [place], [address] Platelet mean volume (Bld) [Entitic vol] 11.3 fL Normal 6.2-12.0 [facility] Comment on above: Order Comment: 107.1 Performed By: #### L 100.0500, L500.2500 #### [facility] [address] [place], [address] Platelets (Bld) [#/Vol] 136 10*3/uL Low 150-450 [facility] Comment on above: Order Comment: 107.1 Performed By: #### L 100.0500, L500.2500 #### [facility] [address] [place], [address] RBC (Bld) [#/Vol] 4.50 10*6/uL Low 4.6-6.2 [facility] Comment on above: Order Comment: 107.1 Performed By: #### L 100.0500, L500.2500 #### [facility] [address] [place], [address] RDW SD 43.0 fl Normal 35.1-43.9 [facility] Comment on above: Order Comment: 107.1 Performed By: #### L 100.0500, L500.2500 #### [facility] [address] [place], [address] WBC (Bld) [#/Vol] 5.9 10*3/uL Normal 4.4-11.0 [facility] Comment on above: Order Comment: 107.1 Performed By: #### L 100.0500, L500.2500 #### [facility] [address] [place], [address] Carbon dioxide, total [Moles /volume] in Central venous bloodOrdered By: Demetrius Fenton on 07-22-2024 CO2 [Moles/Vol] 21.4 mmol/L 21.0-32.0 [facility] Chloride assayOrdered By: Travis Finch on 07-22-2024 Chloride [Moles/Vol] 97 mmol/L Low 98-[address] [facility] Erythrocyte distribution wid th (RBC) [Ratio]Ordered By: Demetrius Fenton on 07-22-2024 Erythrocyte distribution width (RBC) [Entitic vol] 43.0 fL 35.1-43.9 [facility] Erythrocyte distribution wid th ratioOrdered By: Demetrius Fenton on 07-22-2024 Erythrocyte distribution width (RBC) [Ratio] 13.0 % 11.6-14.6 [facility] Erythrocyte distribution wid th standard deviationOrdered By: Demetrius Fenton on 07-22-2024 Erythrocyte distribution width (RBC) [Ratio] 43.0 fl 35.1-43.9 [facility] GFR/1.73 sq M.predicted gabino g non-blacks MDRD (S/P/Bld) [Vol rate/Area]Ordered By: Demetrius Fenton on 07-22-2024 Estimated GFR (MDRD) Non-Af Amer 69 >60 [facility] Comment on above: mL/min/1.73m2 CKD-EP I Creatinine Equation (2020) Glomerular filtration rate ( GFR) estimation/1.73 sq m using serum, plasma, or whole bOrdered By: Demetrius Fenton on 07-22-2024 GFR/1.73 sq M.predicted among non-blacks MDRD (S/P/Bld) [Vol rate/Area] 69 mL/min/{1.73_m2} >60 [facility] Comment on above: mL/min/1.73m2 CKD-EP I Creatinine Equation (2020) Hematocrit Auto (Bld) [Volum e fraction]Ordered By: Demetrius Fenton on 07-22-2024 Hematocrit (Bld) [Volume fraction] 41.7 % 40-54 [facility] Hemoglobin measurementOrdere d By: Demetrius Fenton on 07-22-2024 Hemoglobin (Bld) [Mass/Vol] 14.6 g/dL 13.0-16.5 [facility] MCV (mean corpuscular volume ) determinationOrdered By: Demetrius Fenton on 07-22-2024 MCV (RBC) [Entitic vol] 92.7 fL 80-94 [facility] Mean corpuscular hemoglobin (MCH) determinationOrdered By: Demetrius Fenton on 07-22-2024 MCH (RBC) [Entitic mass] 32.4 pg High 27.0-32.0 [facility] Mean corpuscular hemoglobin concentration (MCHC) determinationOrdered By: Demetrius Fenton on 07-22-2024 MCHC (RBC) [Mass/Vol] 35.0 g/dL 32-36 [facility] Mean platelet volume determi nationOrdered By: Demetrius Fenton on 07-22-2024 Platelet mean volume (Bld) [Entitic vol] 11.3 fL 6.2-12.0 [facility] Platelet countOrdered By: Travis Finch on 07-22-2024 Platelets (Bld) [#/Vol] 136 10*3/uL Low 150-450 [facility] Potassium (Unsp spec) [Mass/ Vol]Ordered By: Demetrius Fenton on 07-22-2024 Potassium [Moles/Vol] 4.4 mmol/L 3.3-5.1 [facility] Potassium measurement (mass/ volume)Ordered By: Demetrius Fenton on 07-22-2024 Potassium (Unsp spec) [Mass/Vol] 4.4 mmol/L 3.3-5.1 [facility] RBC Auto (Bld) [#/Vol]Ordere d By: Demetrius Fenton on 07-22-2024 RBC (Bld) [#/Vol] 4.50 10*6/uL Low 4.6-6.2 [facility] Serum creatinine measurement (mass/volume)Ordered By: Demetrius Fenton on 07-22-2024 Creatinine [Mass/Vol] 1.20 mg/dL 0.70-1.20 [facility] Serum glucose measurement (m ass/volume)Ordered By: Demetrius Fenton on 07-22-2024 Glucose [Mass/Vol] 184 mg/dL High 70-99 [facility] Serum or plasma calcium roseanne urement (mass/volume)Ordered By: Demetrius Fenton on 07-22-2024 Calcium [Mass/Vol] 9.1 mg/dL 7.6-11.0 [facility] Serum or plasma urea nitroge n measurement (mass/volume)Ordered By: Demetrius Fenton on 07-22-2024 Urea nitrogen [Mass/Vol] 13 mg/dL 4-19 [facility] Sodium levelOrdered By: Angel neisha Suzy on 07-22-2024 Sodium [Moles/Vol] 132 mmol/L Low 133-145 [facility] White blood cell (WBC) count Ordered By: Demetrius Fenton on 07-22-2024 WBC (Bld) [#/Vol] 5.9 10*3/uL 4.4-11.0 [facility] CBC-Complete Blood Cnt No Di ffon 07-08-2024 Erythrocyte distribution width (RBC) [Ratio] 13.2 % Normal 11.6-14.6 [facility] Comment on above: Order Comment: 107-1 Performed By: #### L 100.0500, L501.8100 #### [facility] [address] [place], [address] Hematocrit (Bld) [Volume fraction] 45.3 % Normal 40-54 [facility] Comment on above: Order Comment: 107-1 Performed By: #### L 100.0500, L501.8100 #### [facility] [address] [place], [address] Hemoglobin (Bld) [Mass/Vol] 15.6 g/dL Normal 13.0-16.5 [facility] Comment on above: Order Comment: 107-1 Performed By: #### L 100.0500, L501.8100 #### [facility] [address] [place], [address] MCH (RBC) [Entitic mass] 32.0 pg Normal 27.0-32.0 [facility] Comment on above: Order Comment: 107-1 Performed By: #### L 100.0500, L501.8100 #### [facility] [address] [place], [address] MCHC (RBC) [Mass/Vol] 34.4 g/dL Normal 32-36 [facility] Comment on above: Order Comment: 107-1 Performed By: #### L 100.0500, L501.8100 #### [facility] [address] [place], [address] MCV (RBC) [Entitic vol] 93.0 fL Normal 80-94 [facility] Comment on above: Order Comment: 107-1 Performed By: #### L 100.0500, L501.8100 #### [facility] [address] [place], [address] Platelet mean volume (Bld) [Entitic vol] 10.6 fL Normal 6.2-12.0 [facility] Comment on above: Order Comment: 107-1 Performed By: #### L 100.0500, L501.8100 #### [facility] [address] [place], [address] Platelets (Bld) [#/Vol] 139 10*3/uL Low 150-450 [facility] Comment on above: Order Comment: 107-1 Performed By: #### L 100.0500, L501.8100 #### [facility] [address] [place], [address] RBC (Bld) [#/Vol] 4.87 10*6/uL Normal 4.6-6.2 [facility] Comment on above: Order Comment: 107-1 Performed By: #### L 100.0500, L501.8100 #### [facility] [address] [place], [address] RDW SD 44.1 fl High 35.1-43.9 [facility] Comment on above: Order Comment: 107-1 Performed By: #### L 100.0500, L501.8100 #### [facility] [address] [place], [address] WBC (Bld) [#/Vol] 7.9 10*3/uL Normal 4.4-11.0 [facility] Comment on above: Order Comment: 107-1 Performed By: #### L 100.0500, L501.8100 #### [facility] [place], [address] CNOVon 07-08-2024 CNOV Office Visit ([facility] ) MOISES MADRID ([id number]) 1960 M Date Time Provider Department 07/08/24 12:00 PM CHHAYA SALDANA [facility] During your visit today, we recorded [...] (sleep) - Aimovig 140 mg monthly - [place] 5 mg q8hrs PRN pain (takes around [...] mouth once (more content not included)... Normal [facility] Erythrocyte distribution wid th ratioOrdered By: Demetrius Fenton on 07-08-2024 Erythrocyte distribution width (RBC) [Ratio] 13.2 % 11.6-14.6 [facility] Erythrocyte distribution wid th standard deviationOrdered By: Demetrius Fenton on 07-08-2024 Erythrocyte distribution width (RBC) [Entitic vol] 44.1 fL High 35.1-43.9 [facility] Erythrocyte distribution width (RBC) [Ratio] 44.1 fl High 35.1-43.9 [facility] Hematocrit Auto (Bld) [Volum e fraction]Ordered By: Demetrius Fenton on 07-08-2024 Hematocrit (Bld) [Volume fraction] 45.3 % 40-54 [facility] Hemoglobin measurementOrdere d By: Demetrius Fenton on 07-08-2024 Hemoglobin (Bld) [Mass/Vol] 15.6 g/dL 13.0-16.5 [facility] MCV (mean corpuscular volume ) determinationOrdered By: Demetrius Fenton on 07-08-2024 MCV (RBC) [Entitic vol] 93.0 fL 80-94 [facility] Mean corpuscular hemoglobin (MCH) determinationOrdered By: Demetrius Fenton on 07-08-2024 MCH (RBC) [Entitic mass] 32.0 pg 27.0-32.0 [facility] Mean corpuscular hemoglobin concentration (MCHC) determinationOrdered By: Demetrius Fenton on 07-08-2024 MCHC (RBC) [Mass/Vol] 34.4 g/dL 32-36 [facility] Mean platelet volume determi nationOrdered By: Demetrius Fenton on 07-08-2024 Platelet mean volume (Bld) [Entitic vol] 10.6 fL 6.2-12.0 [facility] Platelet countOrdered By: Travis Finch on 07-08-2024 Platelets (Bld) [#/Vol] 139 10*3/uL Low 150-450 [facility] RBC Auto (Bld) [#/Vol]Ordere d By: Demetrius Fenton on 07-08-2024 RBC (Bld) [#/Vol] 4.87 10*6/uL 4.6-6.2 [facility] Serum or plasma valproate me asurement (mass/volume)Ordered By: Demetrius Fenton on 07-08-2024 Valproate [Mass/Vol] 43 ug/mL Low 50-[address] [facility] Comment on above: Valproic Acid concen trations >100 ug/mL are potentially toxic. Valproate [Mass/Vol]Ordered By: Demetrius Fenton on 07-08-2024 Valproic Acid (Depakene) Level 43 ug/mL Low 50-100 [facility] Comment on above: Valproic Acid concen trations >100 ug/mL are potentially toxic. Valproic Acid (Depakene) Lev alison 07-08-2024 VALPROIC ACID 43 ug/mL Low 50-100 [facility] Comment on above: Order Comment: 107-1 Result Comment: Valp roic Acid concentrations >100 ug/mL are potentially toxic. Performed By: #### L 100.0500, L501.8100 #### [facility] [address] [place], [address] White blood cell (WBC) count Ordered By: Demetrius Fenton on 07-08-2024 WBC (Bld) [#/Vol] 7.9 10*3/uL 4.4-11.0 [facility] BUN/creatinine ratioOrdered By: Demetrius Fenton on 06-10-2024 Urea nitrogen/Creatinine [Mass ratio] 14.5 mg/mg 10-20 [facility] Basic Metabolic Profile (BMP )on 06-10-2024 Anion gap [Moles/Vol] 14 mmol/L Normal 5-15 [facility] Comment on above: Order Comment: 107.1 Performed By: #### L 500.4050, L501.9985, L500.4100, L100.0500 #### [facility] [address] [place], [address] BUN/CRE 14.5 RATIO Normal 10-20 [facility] Comment on above: Order Comment: 107.1 Performed By: #### L 500.4050, L501.9985, L500.4100, L100.0500 #### [facility] [address] [place], [address] Calcium [Mass/Vol] 9.5 mg/dL Normal 7.6-11.0 [facility] Comment on above: Order Comment: 107.1 Performed By: #### L 500.4050, L501.9985, L500.4100, L100.0500 #### [facility] [address] [place], [address] Chloride [Moles/Vol] 99 mmol/L Normal 96-[address] [facility] Comment on above: Order Comment: 107.1 Performed By: #### L 500.4050, L501.9985, L500.4100, L100.0500 #### [facility] [address] [place], [address] CO2 [Moles/Vol] 24.0 mmol/L Normal 22.0-29.0 [facility] Comment on above: Order Comment: 107.1 Performed By: #### L 500.4050, L501.9985, L500.4100, L100.0500 #### [facility] [address] [place], [address] Creatinine [Mass/Vol] 1.20 mg/dL Normal 0.70-1.20 [facility] Comment on above: Order Comment: 107.1 Performed By: #### L 500.4050, L501.9985, L500.4100, L100.0500 #### [facility] [address] [place], [address] GFR/1.73 sq M.predicted among non-blacks MDRD (S/P/Bld) [Vol rate/Area] 69 mL/min/{1.73_m2} Normal >60 [facility] [facility] Comment on above: Order Comment: 107.1 Result Comment: mL/m in/1.73m2 CKD-EPI Creatinine Equation (2020) Performed By: #### L 500.4050, L501.9985, L500.4100, L100.0500 #### [facility] [address] [place], [address] Glucose [Mass/Vol] 107 mg/dL High 70-99 [facility] Comment on above: Order Comment: 107.1 Performed By: #### L 500.4050, L501.9985, L500.4100, L100.0500 #### [facility] [address] [place], [address] Potassium [Moles/Vol] 4.7 mmol/L Normal 3.3-5.1 [facility] Comment on above: Order Comment: 107.1 Result Comment: Hemo lysis present, Results??could be affected. ?? Performed By: #### L 500.4050, L501.9985, L500.4100, L100.0500 #### [facility] [address] [place], [address] Sodium [Moles/Vol] 137 mmol/L Normal 133-145 [facility] Comment on above: Order Comment: 107.1 Performed By: #### L 500.4050, L501.9985, L500.4100, L100.0500 #### [facility] [address] [place], [address] Urea nitrogen [Mass/Vol] 17 mg/dL Normal 4-19 [facility] Comment on above: Order Comment: 107.1 Performed By: #### L 500.4050, L501.9985, L500.4100, L100.0500 #### [facility] [address] [place], [address] CBC-Complete Blood Cnt No Di ffon 06-10-2024 Erythrocyte distribution width (RBC) [Ratio] 13.7 % Normal 11.6-14.6 [facility] Comment on above: Order Comment: 107.1 Performed By: #### L 500.4050, L501.9985, L500.4100, L100.0500 #### [facility] [address] [place], [address] Hematocrit (Bld) [Volume fraction] 44.8 % Normal 40-54 [facility] Comment on above: Order Comment: 107.1 Performed By: #### L 500.4050, L501.9985, L500.4100, L100.0500 #### [facility] [address] [place], [address] Hemoglobin (Bld) [Mass/Vol] 15.5 g/dL Normal 13.0-16.5 [facility] Comment on above: Order Comment: 107.1 Performed By: #### L 500.4050, L501.9985, L500.4100, L100.0500 #### [facility] [address] [place], [address] MCH (RBC) [Entitic mass] 31.9 pg Normal 27.0-32.0 [facility] Comment on above: Order Comment: 107.1 Performed By: #### L 500.4050, L501.9985, L500.4100, L100.0500 #### [facility] [address] [place], [address] MCHC (RBC) [Mass/Vol] 34.6 g/dL Normal 32-36 [facility] Comment on above: Order Comment: 107.1 Performed By: #### L 500.4050, L501.9985, L500.4100, L100.0500 #### [facility] [address] [place], [address] MCV (RBC) [Entitic vol] 92.2 fL Normal 80-94 [facility] Comment on above: Order Comment: 107.1 Performed By: #### L 500.4050, L501.9985, L500.4100, L100.0500 #### [facility] [address] [place], [address] Platelet mean volume (Bld) [Entitic vol] 11.5 fL Normal 6.2-12.0 [facility] Comment on above: Order Comment: 107.1 Performed By: #### L 500.4050, L501.9985, L500.4100, L100.0500 #### [facility] [address] [place], [address] Platelets (Bld) [#/Vol] 130 10*3/uL Low 150-450 [facility] Comment on above: Order Comment: 107.1 Performed By: #### L 500.4050, L501.9985, L500.4100, L100.0500 #### [facility] [address] [place], [address] RBC (Bld) [#/Vol] 4.86 10*6/uL Normal 4.6-6.2 [facility] Comment on above: Order Comment: 107.1 Performed By: #### L 500.4050, L501.9985, L500.4100, L100.0500 #### [facility] [address] [place], [address] RDW SD 45.3 fl High 35.1-43.9 [facility] Comment on above: Order Comment: 107.1 Performed By: #### L 500.4050, L501.9985, L500.4100, L100.0500 #### [facility] [address] [place], [address] WBC (Bld) [#/Vol] 7.7 10*3/uL Normal 4.4-11.0 [facility] Comment on above: Order Comment: 107.1 Performed By: #### L 500.4050, L501.9985, L500.4100, L100.0500 #### [facility] [address] [place], [address] Carbon dioxide measurementOr dered By: Demetrius Fenton on 06-10-2024 CO2 [Moles/Vol] 24.0 mmol/L 22.0-29.0 [facility] Chloride measurementOrdered By: Demetrius Fenton on 06-10-2024 Chloride [Moles/Vol] 99 mmol/L 96-[address] [facility] Erythrocyte distribution wid th ratioOrdered By: Demetrius Fenton on 06-10-2024 Erythrocyte distribution width (RBC) [Ratio] 13.7 % 11.6-14.6 [facility] Erythrocyte distribution wid th standard deviationOrdered By: Demetrius Fenton on 06-10-2024 Erythrocyte distribution width (RBC) [Entitic vol] 45.3 fL High 35.1-43.9 [facility] Erythrocyte distribution width (RBC) [Ratio] 45.3 fl High 35.1-43.9 [facility] GFR/1.73 sq M.predicted gabino g non-blacks MDRD (S/P/Bld) [Vol rate/Area]Ordered By: Demetrius Fenton on 06-10-2024 Estimated GFR (MDRD) Non-Af Amer 69 >60 [facility] Comment on above: mL/min/1.73m2 CKD-EP I Creatinine Equation (2020) Glomerular filtration rate ( GFR) estimation/1.73 sq m using serum, plasma, or whole bOrdered By: Demetrius Fenton on 06-10-2024 GFR/1.73 sq M.predicted among non-blacks MDRD (S/P/Bld) [Vol rate/Area] 69 mL/min/{1.73_m2} >60 [facility] Comment on above: mL/min/1.73m2 CKD-EP I Creatinine Equation (2020) Hematocrit Auto (Bld) [Volum e fraction]Ordered By: Demetrius Fenton on 06-10-2024 Hematocrit (Bld) [Volume fraction] 44.8 % 40-54 [facility] Hemoglobin measurementOrdere d By: Demetrius Fenton on 06-10-2024 Hemoglobin (Bld) [Mass/Vol] 15.5 g/dL 13.0-16.5 [facility] MCV (mean corpuscular volume ) determinationOrdered By: Demetrius Fenton on 06-10-2024 MCV (RBC) [Entitic vol] 92.2 fL 80-94 [facility] Mean corpuscular hemoglobin (MCH) determinationOrdered By: Demetrius Fenton on 06-10-2024 MCH (RBC) [Entitic mass] 31.9 pg 27.0-32.0 [facility] Mean corpuscular hemoglobin concentration (MCHC) determinationOrdered By: Demetrius Fenton on 06-10-2024 MCHC (RBC) [Mass/Vol] 34.6 g/dL 32-36 [facility] Mean platelet volume determi nationOrdered By: Demetrius Fenton on 06-10-2024 Platelet mean volume (Bld) [Entitic vol] 11.5 fL 6.2-12.0 [facility] Platelet countOrdered By: Travis Finch on 06-10-2024 Platelets (Bld) [#/Vol] 130 10*3/uL Low 150-450 [facility] RBC Auto (Bld) [#/Vol]Ordere d By: Demetrius Fenton on 06-10-2024 RBC (Bld) [#/Vol] 4.86 10*6/uL 4.6-6.2 [facility] Serum creatinine measurement (mass/volume)Ordered By: Demetrius Fenton on 06-10-2024 Creatinine [Mass/Vol] 1.20 mg/dL 0.70-1.20 [facility] Serum glucose measurement (m ass/volume)Ordered By: Demetrius Fenton on 06-10-2024 Glucose [Mass/Vol] 107 mg/dL High 70-99 [facility] Serum or plasma anion gap de termination (moles/volume)Ordered By: Demetrius Fenton on 06-10-2024 Anion gap [Moles/Vol] 14 mmol/L 5-15 [facility] Serum or plasma calcium roseanne urement (mass/volume)Ordered By: Demetrius Fenton on 06-10-2024 Calcium [Mass/Vol] 9.5 mg/dL 7.6-11.0 [facility] Serum or plasma potassium me asurementOrdered By: Demetrius Fenton on 06-10-2024 Potassium [Moles/Vol] 4.7 mmol/L 3.3-5.1 [facility] Comment on above: Hemolysis present, R esults could be affected. Serum or plasma sodium measu rement (moles/volume)Ordered By: Demetrius Fenton on 06-10-2024 Sodium [Moles/Vol] 137 mmol/L 133-145 [facility] Serum or plasma urea nitroge n measurement (mass/volume)Ordered By: Demetrius Fenton on 06-10-2024 Urea nitrogen [Mass/Vol] 17 mg/dL 4-19 [facility] White blood cell (WBC) count Ordered By: Demetrius Fenton on 06-10-2024 WBC (Bld) [#/Vol] 7.7 10*3/uL 4.4-11.[address] [facility] 37on 04-09-2024 37 Ordered treatment completed and patient is healed. Patient discharged without any issues. All questions answered. Call the clinic if your wound reopens or a new wound appears at [phone] [facility] Progress Noteon 04-09-2024 Progress Note Assessments Nursing [...] Test Results/Process Orders 10 [x] Staff telephones [facility], Nursing Homes/Clarify Orders 10 [] Routine [...] Points) Level 5 (160 or more Points) [facility] Progress Note Subjective Patient ID: Moises Madrid [...] on an as-needed basis at this time. [facility] 29on 03-27-2024 29 Encounter addended b y: Marycarmen Corona RN on: 03/28/2024 9:26 AM Actions taken: LDA properties accepted [facility] 37on 03-27-2024 37 Return Appointment i n: 1 week - Should you experience any significant changes in your wound(s) or have any questions regarding your home care instructions please contact the wound center at [phone] If after regular business hours, please call [...] help with wound healing Nursing Care Facility: [facility] Bilateral legs resolved-Facility closed week - Facility [...] sacral area daily and PRN. Normal [facility] Progress Noteon 03-27-2024 Progress Note Assessments [...] Test Results/Process Orders 10 [] Staff telephones [employer], Nursing Homes/Clarify Orders 10 [x] Routine Transfer [...] Points) Level 5 (160 or more Points) [address] 03-20-2024 37 Return Appointment i n: 1 week - Should you experience any significant changes in your wound(s) or have any questions regarding your home care instructions please contact the wound center at [phone] If after regular business hours, please call [...] help with wound healing Nursing Care Facility: [facility] Wound Treatment to R 2nd toe- Daily [...] buttocks and sacral area daily and PRN. [address] 03-13-2024 37 Return Appointment i n: 1 week - Should you experience any significant changes in your wound(s) or have any questions regarding your home care instructions please contact the wound center at [phone] If after regular business hours, please call [...] help with wound healing Nursing Care Facility: [facility] Wound Treatment to R toes- Daily Cleanse [...] sacral area daily and PRN. Normal [facility] Albumin to globulin ratioOrd ered By: Demetrius Fenton on 03-13-2024 Albumin/Globulin [Mass ratio] 1.1 {ratio} 0.9-2.4 [facility] Bilirubin, totalOrdered By: Demetrius Fenton on 03-13-2024 Bilirubin [Mass/Vol] 1.10 mg/dL High 0.20-1.[address] [facility] Comment on above: For patients on eltr ombopag therapy, use of Dimension Danese TBIL is not recommended. Blood urea nitrogen (BUN)/cr eatinine ratioOrdered By: Demetrius Fenton on 03-13-2024 Urea nitrogen/Creatinine [Mass ratio] 16.0 mg/mg - [facility] CBC-Complete Blood Cnt No Di ffon 03-13-2024 Erythrocyte distribution width (RBC) [Ratio] 13.2 % Normal 11.6-14.6 [facility] Comment on above: Performed By: #### L 500.4050, L501.9985, L500.4100, L100.0500 #### [facility] [address] [place], [address] Hematocrit (Bld) [Volume fraction] 44.4 % Normal 40-54 [facility] Comment on above: Performed By: #### L 500.4050, L501.9985, L500.4100, L100.0500 #### [facility] [address] [place], [address] Hemoglobin (Bld) [Mass/Vol] 15.2 g/dL Normal 13.0-16.5 [facility] Comment on above: Performed By: #### L 500.4050, L501.9985, L500.4100, L100.0500 #### [facility] [address] [place], [address] MCH (RBC) [Entitic mass] 31.0 pg Normal 27.0-32.0 [facility] Comment on above: Performed By: #### L 500.4050, L501.9985, L500.4100, L100.0500 #### [facility] [address] [place], [address] MCHC (RBC) [Mass/Vol] 34.2 g/dL Normal 32-36 [facility] Comment on above: Performed By: #### L 500.4050, L501.9985, L500.4100, L100.0500 #### [facility] [address] [place], [address] MCV (RBC) [Entitic vol] 90.4 fL Normal 80-94 [facility] Comment on above: Performed By: #### L 500.4050, L501.9985, L500.4100, L100.0500 #### [facility] [address] [place], [address] Platelet mean volume (Bld) [Entitic vol] 10.8 fL Normal 6.2-12.0 [facility] Comment on above: Performed By: #### L 500.4050, L501.9985, L500.4100, L100.0500 #### [facility] [address] [place], [address] Platelets (Bld) [#/Vol] 149 10*3/uL Low 150-450 [facility] Comment on above: Performed By: #### L 500.4050, L501.9985, L500.4100, L100.0500 #### [facility] [address] [place], [address] RBC (Bld) [#/Vol] 4.91 10*6/uL Normal 4.6-6.2 [facility] Comment on above: Performed By: #### L 500.4050, L501.9985, L500.4100, L100.0500 #### [facility] [address] [place], [address] RDW SD 42.7 fl Normal 35.1-43.9 [facility] Comment on above: Performed By: #### L 500.4050, L501.9985, L500.4100, L100.0500 #### [facility] [address] [place], [address] WBC (Bld) [#/Vol] 8.1 10*3/uL Normal 4.4-11.0 [facility] Comment on above: Performed By: #### L 500.4050, L501.9985, L500.4100, L100.0500 #### [facility] [address] [place], [address] Carbon dioxide measurementOr dered By: Demetrius Fenton on 03-13-2024 CO2 [Moles/Vol] 26.0 mmol/L 21.0-32.0 [facility] Chloride measurementOrdered By: Demetrius Fenton on 03-13-2024 Chloride [Moles/Vol] 104 mmol/L 98-[address] [facility] Comprehensive Metabolic Prof ilon 03-13-2024 Albumin [Mass/Vol] 3.5 g/dL Normal 3.2-5.0 [facility] Comment on above: Performed By: #### L 500.4050, L501.9985, L500.4100, L100.0500 #### [facility] [address] [place], [address] Albumin/Globulin [Mass ratio] 1.1 {ratio} Normal 0.9-2.4 [facility] Comment on above: Performed By: #### L 500.4050, L501.9985, L500.4100, L100.0500 #### [facility] [address] [place], [address] ALK P 65 U/L Normal 45-117 [facility] Comment on above: Performed By: #### L 500.4050, L501.9985, L500.4100, L100.0500 #### [facility] [address] [place], [address] ALT [Catalytic activity/Vol] 53 U/L Normal 16-61 [facility] Comment on above: Performed By: #### L 500.4050, L501.9985, L500.4100, L100.0500 #### [facility] [address] [place], [address] AST [Catalytic activity/Vol] 37 U/L Normal 15-37 [facility] Comment on above: Result Comment: Slig ht Hemolysis, Result may be falsely increased. Performed By: #### L 500.4050, L501.9985, L500.4100, L100.0500 #### [facility] [address] [place], [address] Bilirubin [Mass/Vol] 1.10 mg/dL High 0.20-1.[address] [facility] Comment on above: Result Comment: For patients on eltrombopag therapy, use of Dimension Danese TBIL is not recommended. Performed By: #### L 500.4050, L501.9985, L500.4100, L100.0500 #### [facility] [address] [place], [address] BUN/CRE 16.0 RATIO Normal 10-20 [facility] Comment on above: Performed By: #### L 500.4050, L501.9985, L500.4100, L100.0500 #### [facility] [address] [place], [address] CA,Total 9.1 mg/dL Normal 8.5-10.1 [facility] Comment on above: Performed By: #### L 500.4050, L501.9985, L500.4100, L100.0500 #### [facility] [address] [place], [address] Chloride [Moles/Vol] 104 mmol/L Normal 98-[address] [facility] Comment on above: Performed By: #### L 500.4050, L501.9985, L500.4100, L100.0500 #### [facility] [address] [place], [address] CO2 [Moles/Vol] 26.0 mmol/L Normal 21.0-32.0 [facility] Comment on above: Performed By: #### L 500.4050, L501.9985, L500.4100, L100.0500 #### [facility] [address] [place], [address] Creatinine [Mass/Vol] 1.06 mg/dL Normal 0.70-1.30 [facility] Comment on above: Result Comment: The validity of the calculated GFR GFRAA in patients over 70 years has not been determined. Clinical correlation is essential. Performed By: #### L 500.4050, L501.9985, L500.4100, L100.0500 #### [facility] [address] [place], [address] EST GFR - AA 91 mL/min Normal >60 [facility] Comment on above: Result Comment: Afri can Swedish GFR Calc Performed By: #### L 500.4050, L501.9985, L500.4100, L100.0500 #### [facility] [address] [place], [address] GAP 7 Normal 5-15 [facility] Comment on above: Performed By: #### L 500.4050, L501.9985, L500.4100, L100.0500 #### [facility] [address] [place], [address] GFR/1.73 sq M.predicted among non-blacks MDRD (S/P/Bld) [Vol rate/Area] 75 mL/min/{1.73_m2} Normal >60 [facility] Comment on above: Result Comment: Non- GFR Calc Performed By: #### L 500.4050, L501.9985, L500.4100, L100.0500 #### [facility] [address] [place], [address] Globulin (S) [Mass/Vol] 3.2 g/dL Normal 2.2-4.2 [facility] Comment on above: Performed By: #### L 500.4050, L501.9985, L500.4100, L100.0500 #### [facility] [address] [place], [address] Glucose [Mass/Vol] 107 mg/dL High 74-106 [facility] Comment on above: Result Comment: Fast ing Glucose result from 100 to 125 mg/dL suggests IMPAIRED HOMEOSTASIS per A.D.A. criteria. Performed By: #### L 500.4050, L501.9985, L500.4100, L100.0500 #### [facility] [address] [place], [address] Potassium [Moles/Vol] 4.7 mmol/L Normal 3.5-5.1 [facility] Comment on above: Result Comment: Slig ht Hemolysis, Result may be falsely increased. Performed By: #### L 500.4050, L501.9985, L500.4100, L100.0500 #### [facility] [address] [place], [address] Sodium [Moles/Vol] 137 mmol/L Normal 136-145 [facility] Comment on above: Performed By: #### L 500.4050, L501.9985, L500.4100, L100.0500 #### [facility] [address] [place], [address] T PROT 6.7 g/dL Normal 6.4-8.2 [facility] Comment on above: Performed By: #### L 500.4050, L501.9985, L500.4100, L100.0500 #### [facility] [address] [place], [address] Urea nitrogen [Mass/Vol] 17 mg/dL Normal 7-18 [facility] Comment on above: Performed By: #### L 500.4050, L501.9985, L500.4100, L100.0500 #### [facility] [address] [place], [address] Erythrocyte distribution wid th ratioOrdered By: Demetrius Fenton on 03-13-2024 Erythrocyte distribution width (RBC) [Ratio] 13.2 % 11.6-14.6 [facility] Erythrocyte distribution wid th standard deviationOrdered By: Demetrius Fenton on 03-13-2024 Erythrocyte distribution width (RBC) [Entitic vol] 42.7 fL 35.1-43.9 [facility] Estimated glomerular filtrat ion rate (GFR) AmericanOrdered By: Demetrius Fenton on 03-13-2024 Estimated GFR (MDRD) Amer 91 mL/min >60 [facility] Comment on above: GFR Calc Glomerular filtration rate ( GFR) estimationOrdered By: Demetrius Fenton on 03-13-2024 Estimated GFR (MDRD) Non-Af Amer 75 mL/min >60 [facility] Comment on above: Non- GFR Calc Glucose measurementOrdered B y: Demetrius Fenton on 03-13-2024 Glucose [Mass/Vol] 107 mg/dL High 74-106 [facility] Comment on above: Fasting Glucose resu lt from 100 to 125 mg/dL suggests IMPAIRED HOMEOSTASIS per A.D.A. criteria. Hematocrit Auto (Bld) [Volum e fraction]Ordered By: Demetrius Fenton on 03-13-2024 Hematocrit (Bld) [Volume fraction] 44.4 % 40-54 [facility] Hemoglobin A1con 03-13-2024 HbA1c (Bld) [Mass fraction] 6.2 % High 3.8-5.6 [facility] Comment on above: Result Comment: Norm al < 5.7 % Prediabetic 5.7 - 6.4 % Diabetic >or= 6.5 % Please note range changes. Performed By: #### L 500.4050, L501.9985, L500.4100, L100.0500 #### [facility] [address] [place], [address] Hemoglobin A1c percentageOrd ered By: Demetrius Fenton on 03-13-2024 HbA1c (Bld) [Mass fraction] 6.2 % High 3.8-5.6 [facility] Comment on above: Normal < 5.7 % Predi abetic 5.7 - 6.4 % Diabetic >or= 6.5 % Please note range changes. Hemoglobin measurementOrdere d By: Demetrius Fenton on 03-13-2024 Hemoglobin (Bld) [Mass/Vol] 15.2 g/dL 13.0-16.5 [facility] High density lipoprotein (HD L) measurementOrdered By: Demetrius Fenton on 03-13-2024 Cholesterol in HDL [Mass/Vol] 41 mg/dL >40 [facility] Comment on above: The drugs N-Acetylcy steine and Metamizole may falsely depress this assay. Reference Range HDL <40 mg/dL Low HDL Cholesterol HDL >or= 60 mg/dL High HDL Cholesterol Laboratory - Chemistry and C hemistry - challengeOrdered By: Demetrius Fenton on 03-13-2024 AST [Catalytic activity/Vol] 37 U/L 15-37 [facility] Comment on above: Slight Hemolysis, Re sult may be falsely increased. Lipid Profileon 03-13-2024 Cholesterol [Mass/Vol] 112 mg/dL Normal 200 [facility] Comment on above: Result Comment: <200 mg/dL Desirable 200-240 mg/dL Borderline >240 mg/dL High Risk Performed By: #### L 500.4050, L501.9985, L500.4100, L100.0500 #### [facility] [address] [place], [address] Cholesterol in HDL [Mass/Vol] 41 mg/dL Normal [facility] Comment on above: Result Comment: The drugs N-Acetylcysteine and Metamizole may falsely depress this assay. Reference Range HDL <40 mg/dL Low HDL Cholesterol HDL >or= 60 mg/dL High HDL Cholesterol Performed By: #### L 500.4050, L501.9985, L500.4100, L100.0500 #### [facility] [address] [place], [address] Cholesterol in LDL [Mass/Vol] 51 mg/dL Normal 0-130 [facility] Comment on above: Performed By: #### L 500.4050, L501.9985, L500.4100, L100.0500 #### [facility] [address] [place], [address] Cholesterol in VLDL [Mass/Vol] 20 mg/dL Normal 5-40 [facility] Comment on above: Performed By: #### L 500.4050, L501.9985, L500.4100, L100.0500 #### [facility] [address] [place], [address] Triglyceride [Mass/Vol] 101 mg/dL Normal [facility] Comment on above: Result Comment: The drugs N-Acetylcysteine and Metamizole may falsely depress this assay. Serum Triglycerides Reference Interval Normal <150 mg/dL Borderline high 150 - 199 mg/dL High 200 - 499 mg/dL Very High > or = 500 mg/dL Performed By: #### L 500.4050, L501.9985, L500.4100, L100.0500 #### [facility] [address] [place], [address] Low density lipoprotein (LDL ) cholesterol measurementOrdered By: Demetrius Fenton on 03-13-2024 Cholesterol in LDL [Mass/Vol] 51 mg/dL 0-130 [facility] MCV (mean corpuscular volume ) determinationOrdered By: Demetrius Fenton on 03-13-2024 MCV (RBC) [Entitic vol] 90.4 fL 80-94 [facility] Mean corpuscular hemoglobin (MCH) determinationOrdered By: Demetrius Fenton on 03-13-2024 MCH (RBC) [Entitic mass] 31.0 pg 27.0-32.0 [facility] Mean corpuscular hemoglobin concentration (MCHC) determinationOrdered By: Demetrius Fenton on 03-13-2024 MCHC (RBC) [Mass/Vol] 34.2 g/dL 32-36 [facility] Mean platelet volume determi nationOrdered By: Demetrius Fenton on 03-13-2024 Platelet mean volume (Bld) [Entitic vol] 10.8 fL 6.2-12.0 [facility] Platelet countOrdered By: Travis Finch on 03-13-2024 Platelets (Bld) [#/Vol] 149 10*3/uL Low 150-450 [facility] Potassium measurementOrdered By: Demetrius Fenton on 03-13-2024 Potassium [Moles/Vol] 4.7 mmol/L 3.5-5.1 [facility] Comment on above: Slight Hemolysis, Re sult may be falsely increased. RBC Auto (Bld) [#/Vol]Ordere d By: Demetrius Fenton on 03-13-2024 RBC (Bld) [#/Vol] 4.91 10*6/uL 4.6-6.2 [facility] Serum anion gap measurementO rdered By: Demetrius Fenton on 03-13-2024 Anion gap [Moles/Vol] 7 mmol/L 5-15 [facility] Serum globulin measurementOr dered By: Demetrius Fenton on 03-13-2024 Globulin (S) [Mass/Vol] 3.2 g/dL 2.2-4.2 [facility] Serum or plasma alanine joy otransferase (ALT) measurementOrdered By: Demetrius Fenton on 03-13-2024 ALT [Catalytic activity/Vol] 53 U/L 16-61 [facility] Serum or plasma albumin roseanne urement (mass/volume)Ordered By: Demetrius Fenton on 03-13-2024 Albumin [Mass/Vol] 3.5 g/dL 3.2-5.0 [facility] Serum or plasma alkaline elsie sphatase measurementOrdered By: Demetrius Fenton on 03-13-2024 ALP [Catalytic activity/Vol] 65 U/L 45-117 [facility] Serum or plasma calcium roseanne urement (mass/volume)Ordered By: Demetrius Fenton on 03-13-2024 Calcium [Mass/Vol] 9.1 mg/dL 8.5-10.1 [facility] Serum or plasma cholesterol measurement (mass/volume)Ordered By: Demetrius Fenton on 03-13-2024 Cholesterol [Mass/Vol] 112 mg/dL <200 [facility] Comment on above: <200 mg/dL Desirable 200-240 mg/dL Borderline >240 mg/dL High Risk Serum or plasma creatinine m easurement (mass/volume)Ordered By: Demetrius Fenton on 03-13-2024 Creatinine [Mass/Vol] 1.06 mg/dL 0.70-1.30 [facility] Comment on above: The validity of the calculated GFR & GFRAA in patients over 70 years has not been determined. Clinical correlation is essential. Serum or plasma urea nitroge n measurement (mass/volume)Ordered By: Demetrius Fenton on 03-13-2024 Urea nitrogen [Mass/Vol] 17 mg/dL 7-18 [facility] Sodium levelOrdered By: Angel Fenton on 03-13-2024 Sodium [Moles/Vol] 137 mmol/L 136-145 [facility] Total proteinOrdered By: Miriam Fenton on 03-13-2024 Protein [Mass/Vol] 6.7 g/dL 6.4-8.2 [facility] Triglycerides measurementOrd ered By: Demetrius Fenton on 03-13-2024 Triglyceride [Mass/Vol] 101 mg/dL <199 [facility] Comment on above: The drugs N-Acetylcy steine and Metamizole may falsely depress this assay.Serum Triglycerides Reference Interval Normal <150 mg/dL Borderline high 150 - 199 mg/dL High 200 - 499 mg/dL Very High > or = 500 mg/dL Very low density lipoprotein (VLDL) cholesterol measurementOrdered By: Demetrius Fenton on 03-13-2024 VLDL Cholesterol 20 mg/dL 5-40 [facility] White blood cell (WBC) count Ordered By: Demetrius Fenton on 03-13-2024 WBC (Bld) [#/Vol] 8.1 10*3/uL 4.4-11.0 [facility] 37on 03-06-2024 37 Return Appointment i n: 1 week - Should you experience any significant changes in your wound(s) or have any questions regarding your home care instructions please contact the wound center at [phone] If after regular business hours, please call [...] help with wound healing Nursing Care Facility: [facility] Wound Treatment to R toes- Daily Cleanse [...] buttocks and sacral area daily and PRN. [facility] 37on 02-28-2024 37 Return Appointment i n: 1 week - Should you experience any significant changes in your wound(s) or have any questions regarding your home care instructions please contact the wound center at [phone] If after regular business hours, please call [...] lite applied for prevention. Nursing Care Facility: [facility] Wound Treatment to R toes- Daily Cleanse [...] buttocks and sacral area daily and PRN. [facility] No Panel Informationon 02-27 Julissa Taylor DO 02/28/2024 1:11 PM Debridement Wound/Incision 02/21/24 Venous Ulcer Pretibial Left Performed by: Julissa Taylor DO Authorized by: Julissa Taylor, DO Consent Consent obtained? verbal Consent given by: patient Risks discussed? procedural risks discussed Immediately prior to the procedure a time out was called and the performing provider verified the correct patient, procedure, equipment, system support administrator, and site/side marked as required. Debridement Details [...] Response to treatment: procedure was tolerated well [facility] [a][employer] 37on 02-21-2024 37 Return Appointment i n: 1 week - Should you experience any significant changes in your wound(s) or have any questions regarding your home care instructions please contact the wound center at [phone] If after regular business hours, please call [...] lite applied for prevention. Nursing Care Facility: [facility] Wound Treatment to R toes- Daily Cleanse [...] sacral area daily and PRN. Normal [facility] CBC W Auto Differential pane l (Bld)on 02-18-2024 Basophils (Bld) [#/Vol] 0.1 10*3/uL 0.0 - 0.2 10*3/uL [employer] Basophils/100 WBC (Bld) 0.8 % 0.0 - 2.0 % [facility] [employer] Eosinophils (Bld) [#/Vol] 0.2 10*3/uL 0.0 - 0.5 10*3/uL [employer] Eosinophils/100 WBC (Bld) 2.8 % 0.0 - 6.0 % [facility] [employer] Erythrocyte distribution width (RBC) [Ratio] 13.2 % 11.5 - 15.0 % [employer] Hematocrit (Bld) [Volume fraction] 49.2 % 40.0 - 52.0 % [employer] Hemoglobin (Bld) [Mass/Vol] 16.9 g/dL 13.0 - 18.0 g/dL [facility] Immature granulocytes (Bld) [#/Vol] 0.1 10*3/uL High NINF - 0.1 10*3/uL [facility] [employer] Immature granulocytes/100 WBC (Bld) 0.6 % 0.0 - 2.0 % [facility] Interpretation and review of laboratory results Abnormal [facility] IPF 4 [facility] Lymphocytes (Bld) [#/Vol] 2.7 10*3/uL 1.0 - 4.3 10*3/uL [facility] Lymphocytes/100 WBC (Bld) 35 % 15.0 - 45.0 % [facility] MCH (RBC) [Entitic mass] 31 pg 26.0 - 34.0 pg [facility] MCHC (RBC) [Mass/Vol] 34.3 % 30.5 - 36.0 % [facility] MCV (RBC) [Entitic vol] 90.1 fL 77.0 - 99.0 fL [facility] Monocytes (Bld) [#/Vol] 0.6 10*3/uL 0.0 - 0.9 10*3/uL [facility] Monocytes/100 WBC (Bld) 7.6 % 5.0 - 13.0 % [facility] Neutrophils (Bld) [#/Vol] 4.1 10*3/uL 1.8 - 7.5 10*3/uL [facility] Neutrophils/100 WBC (Bld) 53.2 % 38.0 - 82.0 % [facility] Nucleated RBC/100 WBC (Bld) [Ratio] 0 % [facility] Platelet mean volume (Bld) [Entitic vol] 10.9 fL 9.0 - 12.7 fL [facility] Platelets (Bld) [#/Vol] 133 10*3/uL Low 140 - 440 10*3/uL [facility] RBC (Bld) [#/Vol] 5.46 10*6/uL 4.40 - 5.9 0 10*6/uL [facility] WBC (Bld) [#/Vol] 7.8 10*3/uL 3.6 - 10.7 10*3/uL [facility] CBC WITH AUTO DIFFERENTIALon 02-18-2024 Basophils (Bld) [#/Vol] 0.1 10*3/uL Normal 0.0-0.2 [facility] Comment on above: Performed By: #### L [id number] #### [employer]: SHARLA FINNEY ([phone]) [facility]) [address] [place] [address] Basophils/100 WBC (Bld) 0.8 % Normal 0.0-2.0 [facility] Comment on above: Performed By: #### L [id number] #### [employer]: SHARLA FINNEY ([phone]) [facility]) [address] [place] [address] Eosinophils (Bld) [#/Vol] 0.2 10*3/uL Normal 0.0-0.5 [facility] Comment on above: Performed By: #### L [id number] #### [employer]: SHARLA FINNEY ([phone]) [facility]) [address] [place] [address] Eosinophils/100 WBC (Bld) 2.8 % Normal 0.0-6.0 [facility] Comment on above: Performed By: #### L [id number] #### [employer]: SHARLA FINNEY ([phone]) [facility]) [address] [place] [address] Erythrocyte distribution width (RBC) [Ratio] 13.2 % Normal 11.5-15.0 [facility] Comment on above: Performed By: #### L [id number] #### [employer]: SHARLA FINNEY ([phone]) [facility]) [address] [place] [address] Hematocrit (Bld) [Volume fraction] 49.2 % Normal 40.0-52.0 [facility] Comment on above: Performed By: #### L [id number] #### [employer]: SHARLA FINNEY ([phone]) [facility]) [address] [place] [address] Hemoglobin (Bld) [Mass/Vol] 16.9 g/dL Normal 13.0-18.0 [facility] Comment on above: Performed By: #### L [id number] #### [employer]: SHARLA FINNEY ([phone]) [facility]) [address] [place] [address] IMMATURE GRANS % 0.6 % Normal 0.0-2.0 [facility] Comment on above: Performed By: #### L [id number] #### [employer]: SHARLA FINNEY ([id number]) [facility]) [address] [place] [address] IMMATURE GRANS ABSOLUTE 0.1 10*3/uL High <0.1 [facility] Comment on above: Performed By: #### L [id number] #### [employer]: SHARLA FINNEY ([phone]) [facility]) [address] [place] [address] [place] IPF 4 Normal [facility] Comment on above: Performed By: #### L [id number] #### [employer]: SHARLA FINNEY ([phone]) [facility]) [address] [place] [address] Lymphocytes (Bld) [#/Vol] 2.7 10*3/uL Normal 1.0-4.3 [facility] Comment on above: Performed By: #### L [id number] #### [employer]: SHARLA FINNEY ([id number]) [facility]) [address] [place] [address] Lymphocytes/100 WBC (Bld) 35.0 % Normal 15.0-45.0 [facility] Comment on above: Performed By: #### L [id number] #### [employer] Operator: SHARLA FINNEY ([id number]) [facility] ([facility]) [address] [place] [address] MCH (RBC) [Entitic mass] 31.0 pg Normal 26.0-34.0 [facility] Comment on above: Performed By: #### L [id number] #### [employer]: SHARLA FINNEY ([id number]) [facility]) [address] [place] [address] MCHC 34.3 % Normal 30.5-36.0 [facility] Comment on above: Performed By: #### L [id number] #### [employer]: SHARLA FINNEY ([id number]) [facility] ([facility]) [address] [place] [address] MCV (RBC) [Entitic vol] 90.1 fL Normal 77.0-99.0 [facility] Comment on above: Performed By: #### L [id number] #### [employer]: SHARLA FINNEY ([phone]) [facility] ([facility]) [address] [place] [address] Monocytes (Bld) [#/Vol] 0.6 10*3/uL Normal 0.0-0.9 [facility] Comment on above: Performed By: #### L [id number] #### [employer]: SHARLA FINNEY ([id number]) [facility] ([facility]) [address] [place] [address] Monocytes/100 WBC (Bld) 7.6 % Normal 5.0-13.0 [facility] Comment on above: Performed By: #### L [id number] #### [employer]: SHARLA FINNEY ([id number]) [facility] ([facility]) [address] [place] [address] NEUTROPHILS ABSOLUTE 4.1 10*3/uL Normal 1.8-7.5 [facility] Comment on above: Performed By: #### L [id number] #### [employer]: SHARLA FINNEY ([phone]) [facility] ([facility]) [address] [place] [address] Neutrophils/100 WBC (Bld) 53.2 % Normal 38.0-82.0 [facility] Comment on above: Performed By: #### L [id number] #### [employer]: SHARLA FINNEY ([id number]) [facility]) [address] [place] [address] NRBC 0.0 /100 WBCs Normal 0.0-2.0 [facility] Comment on above: Performed By: #### L [id number] #### [employer]: SHARLA FINNEY ([id number]) [facility]) [address] [place] [address] Platelet mean volume (Bld) [Entitic vol] 10.9 fL Normal 9.0-12.7 [facility] Comment on above: Performed By: #### L [id number] #### [employer]: SHARLA FINNEY ([phone]) [facility] ([facility]) [address] [place] [address] Platelets (Bld) [#/Vol] 133 10*3/uL Low 140-440 [facility] Comment on above: Performed By: #### L [id number] #### [employer]: SHARLA FINNEY ([id number]) [facility] ([facility]) [address] [place] [address] RBC (Bld) [#/Vol] 5.46 10*6/uL Normal 4.40-5.90 [facility] Comment on above: Performed By: #### L [id number] #### [employer]: SHARLA FINNEY ([id number]) [facility] ([facility]) [address] [place] [address] WBC (Bld) [#/Vol] 7.8 10*3/uL Normal 3.6-10.7 [facility] Comment on above: Performed By: #### L [id number] #### [employer]: SHARLA FINNEY ([phone]) [facility] ([facility]) [address] [place] [address] COMPREHENSIVE METABOLIC PANE Micah 02-18-2024 Albumin [Mass/Vol] 4.7 g/dL Normal 3.5-5.0 [facility] Comment on above: Performed By: #### L [id number] #### [employer]: SHARLA FINNEY ([id number]) [facility] ([facility]) [address] [place] [address] ALP [Catalytic activity/Vol] 68 U/L Normal 38-126 [facility] Comment on above: Performed By: #### L [id number] #### [employer]: SHARLA FINNEY ([phone]) [facility] ([facility]) [address] ALT [Catalytic activity/Vol] 52 U/L High 0-49 [facility] Comment on above: Performed By: #### L [id number] #### [employer] Operator: SHARLA FINNEY ([id number]) [facility] ([facility]) [address] [place] [address] Anion gap [Moles/Vol] 6 mmol/L Normal 3-13 [facility] Comment on above: Performed By: #### L [id number] #### [employer]: SHARLA FINNEY ([id number]) [facility] ([facility]) [address] [place] [address] AST [Catalytic activity/Vol] 48 U/L High 15-46 [facility] Comment on above: Performed By: #### L [id number] #### [employer]: SHARLA FINNEY ([id number]) [facility] ([facility]) [address] [place] [address] Bilirubin [Mass/Vol] 1.4 mg/dL High 0.2-1.3 [facility] Comment on above: Performed By: #### L [id number] #### [employer]: SHARLA FINNEY ([id number]) [facility] ([facility]) [address] [place] [address] Calcium [Mass/Vol] 9.6 mg/dL Normal 8.4-10.4 [facility] Comment on above: Performed By: #### L [id number] #### [employer]: SHARLA FINNEY ([id number]) [facility] ([facility]) [address] [place] [address] [place] Chloride [Moles/Vol] 100 mmol/L Normal 98-107 [facility] Comment on above: Performed By: #### L [id number] #### [employer]: SHARLA FINNEY ([id number]) [facility] ([facility]) [address] [place] [address] [place] CO2 [Moles/Vol] 30 mmol/L Normal 22-30 [facility] Comment on above: Performed By: #### L [id number] #### [employer]: SHARLA FINNEY ([phone]) [facility] ([facility]) [address] [place] [address] Creatinine [Mass/Vol] 0.99 mg/dL Normal 0.66-1.25 [facility] Comment on above: Performed By: #### L [id number] #### [employer]: SHARLA FINNEY ([id number]) [facility]) [address] [place] [address] [place] GLOMERULAR FILTRATION RATE ML/MIN/1.73 SQ M.PREDICTED 86.7 mL/min/1.73m*2 Normal >60.0 [facility] Comment on above: Result Comment: Calc ulation based on the Chronic Kidney Disease Epidemiology Collaboration (CKD-EPI) equation refit without adjustment for race Performed By: #### L [id number] #### [employer]: SHARLA FINNEY ([id number]) [facility]) [address] [place] [address] Glucose [Mass/Vol] 104 mg/dL High 70-100 [facility] Comment on above: Performed By: #### L [id number] #### [employer]: SHARLA FINNEY ([id number]) [facility]) [address] [place] [address] [place] Potassium [Moles/Vol] 4.5 mmol/L Normal 3.5-5.1 [facility] Comment on above: Performed By: #### L [id number] #### [employer]: SHARLA FINNEY ([id number]) [facility] [address] [place] [address] [place] Protein [Mass/Vol] 8.0 g/dL Normal 6.3-8.2 [facility] Comment on above: Performed By: #### L [id number] #### [employer]: SHARLA FINNEY ([phone]) [facility] ([facility]) [address] [place] [address] Sodium [Moles/Vol] 135 mmol/L Normal 135-145 [facility] Comment on above: Performed By: #### L [id number] #### [employer]: SHARLA FINNEY ([id number]) [facility] ([facility]) [address] [place] [address] Urea nitrogen [Mass/Vol] 18 mg/dL Normal 9-20 [facility] Comment on above: Performed By: #### L [id number] #### [employer]: SHARLA FINNEY ([id number]) [facility] ([facility]) [address] [place] [address] CT HEAD WO IV CONTRASTon CT HEAD [...] to year, oriented to month, according to detention he received norco and tylenol w no relief, per snf states he has constant headache Normal [facility] CT Head WO contraston 2023 No acute intracrania l hemorrhage or territorial infarct. Findings suggestive of acute and chronic paranasal sinusitis. Report Dictated on Electronically Signed By: Jus Barlow DR Electronically Signed Date/Time: 02/18/2024 1:49 AM EST [facility] Patient Name: MOISES VERONICA : 1960 [...] frontal sinus and left ethmoid air cells. [facility] Jus Barlow MD - 02/18/2024 Patient Name: [...] Electronically Signed Date/Time: 02/18/2024 1:49 AM EST [facility] Radiology Study observation (narrative) [facility] harvey CT Head WO contrastOrdered B y: Jus Barlow on 02-18-2024 [facility] [employer] Work Phone: Comprehensive metabolic 1998 panelon 02-18-2024 Albumin [Mass/Vol] 4.7 g/dL 3.5 - 5.0 g/dL [facility] ALP [Catalytic activity/Vol] 68 U/L 38 - 126 U/L [facility] ALT [Catalytic activity/Vol] 52 U/L High 0 - 49 U/L [facility] Anion gap [Moles/Vol] 6 mmol/L 3 - 13 mmol/L [facility] AST [Catalytic activity/Vol] 48 U/L High 15 - 46 U/L [facility] Bilirubin [Mass/Vol] 1.4 mg/dL High 0.2 - 1 .3 mg/dL [facility] [employer] Calcium [Mass/Vol] 9.6 mg/dL 8.4 - 10. 4 mg/dL [facility] [employer] Chloride [Moles/Vol] 100 mmol/L 98 - 10 7 mmol/L [facility] CO2 [Moles/Vol] 30 mmol/L 22 - 30 mmol/L [facility] Creatinine [Mass/Vol] 0.99 mg/dL 0.66 - 1.25 mg/dL [facility] GFR/1.73 sq M.predicted (S/P/Bld) [Vol rate/Area] 86.7 mL/min - PINF [facility] Comment on above: Calculation based on the Chronic Kidney Disease Epidemiology Collaboration (CKD-EPI) equation refit without adjustment for race Glucose [Mass/Vol] 104 mg/dL High 70 - 100 mg/dL [facility] Interpretation and review of laboratory results Abnormal [facility] Potassium [Moles/Vol] 4.5 mmol/L 3.5 - 5.1 mmol/L [facility] Protein [Mass/Vol] 8 g/dL 6.3 - 8.2 g/dL [facility] Sodium [Moles/Vol] 135 mmol/L 135 - 145 mmol/L [facility] Urea nitrogen [Mass/Vol] 18 mg/dL 9 - 20 mg/dL [facility] ED Nursing Noteon 02-18-2024 ED Nursing Note Aamir bernard at bedside [facility] ED Nursing Note Report called to snf at this time [facility] ED Nursing Note Pt presents with headache, 12/18, from snf, unsure was if he was given any meds at snf, alert and oriented x3, disoriented to year, oriented to month, according to detention he received norco and tylenol w no relief, per snf states he has constant headache Normal [facility] ED Provider Noteon ED Provider Note [...] of headache that was not relieved with [place] or Tylenol this evening at the senior living [facility]. The senior living facility sent him to the emergency department to be evaluated for his intractable headache. Nursing Notes were reviewed. 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) Pancreatic abscess 07/14/2022 Pancreatitis PVD (peripheral vascular disease) ([facility]) Reduced mobility Repeated falls SIRS (systemic inflammatory response syndrome) (HCC) TBI (traumatic brain injury) ([facility]) Venous insufficiency SURGICAL HISTORY Past [...] MG CAPSULE CHOLECALCIFEROL (VITAMIN D3) 1.25 MG (13525 UT) TABLET Take by mouth 1 (one) [...] daily (more content not included)... Normal [facility] Laboratory - Coagulationon 04-19-2023 aPTT Coag (PPP) [Time] 25 s 20.0 - 30.5 s [facility] [employer] INR Coag (PPP) [Relative time] 1.1 {INR} 0.9 - 1.1 [facility] Comment on above: Recommended Anticoag ulant [...] 11.9 s 9.0 - 1 2.0 s [facility] No Panel Informationon 02-17 Interpretation and review of laboratory results Normal [facility] PROTIME AND APTTon aPTT Coag (Bld) [Time] 25.0 s Normal 20.0-30.5 [facility] Comment on above: Performed By: #### Jacob [id number] ####[employer]: SATYA BRANNON ([phone])[address] INR Coag (PPP) [Relative time] 1.1 {INR} Normal 0.9-1.1 [facility] Comment on above: Result Comment: Saulo [...] prevent Myocardial Infarction Performed By: #### L [id number] ####[employer]: SATYA [id number])[facility])[address] [place] [address] PT Coag (PPP) [Time] 11.9 s Normal 9.0-12.0 [facility] Comment on above: Performed By: #### L [id number] ####[employer]: SATYA BRANNON ([phone])SOPHIA PERALES (SBHLAB)[address] [place] [address] 02-14-2024 29 Encounter addended b y: Marycarmen Corona RN on: 02/15/2024 9:48 AM Actions taken: Charge Capture section accepted [facility] 3702-14-2024 37 Return Appointment i n: 1 week - Should you experience any significant changes in your wound(s) or have any questions regarding your home care instructions please contact the wound center at [phone] If after regular business hours, please call [...] lite applied for prevention. Nursing Care Facility: [facility] Wound Treatment to R toes- Daily Cleanse [...] sacral area daily and PRN. Normal [facility] 02-07-2024 29 Encounter addended b y: Marycarmen Corona RN on: 02/07/2024 10:59 AM Actions taken: Charge Capture section accepted [facility] 29 Encounter addended b y: Adriana Barbosa MA on: 02/07/2024 10:26 AM Actions taken: Flowsheet accepted [facility] 02-07-2024 37 Return Appointment i n: 1 week - Should you experience any significant changes in your wound(s) or have any questions regarding your home care instructions please contact the wound center at [phone] If after regular business hours, please call [...] Take antibiotic as directed Nursing Care Facility: [facility] Wound Treatment to R toes- Daily Cleanse [...] buttocks and sacral area daily and PRN. [facility] 01-31-2024 29 Encounter addended b y: Marycarmen Corona RN on: 02/02/2024 10:55 AM Actions taken: Charge Capture section accepted [facility] 3701-31-2024 37 Return Appointment i n: 1 week - Should you experience any significant changes in your wound(s) or have any questions regarding your home care instructions please contact the wound center at [phone] If after regular business hours, please call [...] Take antibiotic as directed Nursing Care Facility: [facility] Wound Treatment to R toes- Daily Cleanse [...] buttocks and sacral area daily and PRN. [facility] 2901-24-2024 29 Encounter addended b y: Marycarmen Corona RN on: 01/30/2024 3:44 PM Actions taken: LDA properties accepted, Charge Capture section accepted [facility] 01-24-2024 PATINS Return Appointment i n: 1 week - Should you experience any significant changes in your wound(s) or have any questions regarding your home care instructions please contact the wound center at [phone] If after regular business hours, please call [...] Take antibiotic as directed Nursing Care Facility: [facility] Wound Treatment to R toes- Daily Cleanse [...] buttocks and sacral area daily and PRN. [facility] 01-17-2024 PATINS Return Appointment i n: 1 week - Should you experience any significant changes in your wound(s) or have any questions regarding your home care instructions please contact the wound center at [phone] If after regular business hours, please call [...] Take antibiotic as directed Nursing Care Facility: [facility] Wound Treatment to R toes- Daily Cleanse [...] buttocks and sacral area daily and PRN. [facility] 01-10-2024 PATINS Return Appointment i n: 1 week - Should you experience any significant changes in your wound(s) or have any questions regarding your home care instructions please contact the wound center at [phone] If after regular business hours, please call [...] Take antibiotic as directed Nursing Care Facility: [facility] Wound Treatment to R toes- Daily Cleanse [...] buttocks and sacral area daily and PRN. [facility] 01-03-2024 PATINS Return Appointment i n: 1 week - Should you experience any significant changes in your wound(s) or have any questions regarding your home care instructions please contact the wound center at [phone] If after regular business hours, please call [...] Take antibiotic as directed Nursing Care Facility: [facility] Wound Treatment to R toes- Daily Cleanse [...] buttocks and sacral area daily and PRN. [facility] 12-27-2023 PATINS Return Appointment i n: 1 week - Should you experience any significant changes in your wound(s) or have any questions regarding your home care instructions please contact the wound center at [phone] If after regular business hours, please call [...] Take antibiotic as directed Nursing Care Facility: [facility] Wound Treatment to R toes- Daily Cleanse [...] buttocks and sacral area daily and PRN. [facility] 12-20-2023 PATINS Return Appointment i n: 1 week - Should you experience any significant changes in your wound(s) or have any questions regarding your home care instructions please contact the wound center at [phone] If after regular business hours, please call [...] Take antibiotic as directed Nursing Care Facility: [facility] Wound Treatment to R toes- Daily Cleanse [...] buttocks and sacral area daily and PRN. [facility] 12-13-2023 PATINS Return Appointment i n: 1 week - Should you experience any significant changes in your wound(s) or have any questions regarding your home care instructions please contact the wound center at [phone] If after regular business hours, please call [...] Take antibiotic as directed Nursing Care Facility: [facility] Wound Treatment to R toes- Daily Cleanse [...] buttocks and sacral area daily and PRN. [facility] 12-06-2023 PATINS Return Appointment i n: 1 week - Should you experience any significant changes in your wound(s) or have any questions regarding your home care instructions please contact the wound center at [phone] If after regular business hours, please call [...] Take antibiotic as directed Nursing Care Facility: [facility] Wound Treatment to R toes- Daily Cleanse [...] buttocks and sacral area daily and PRN. [facility] 11-29-2023 PATINS Return Appointment i n: 1 week - Should you experience any significant changes in your wound(s) or have any questions regarding your home care instructions please contact the wound center at [phone] If after regular business hours, please call [...] Take antibiotic as directed Nursing Care Facility: [facility] Wound Treatment to R toes- Daily Cleanse [...] buttocks and sacral area daily and PRN. [facility] No Panel Informationon 11-21 Julissa Taylor DO 11/22/2023 11:40 AM Debridement Wound/Incision 11/15/23 Venous Ulcer Leg Right;Lower;Anterior;La teral Performed by: Julissa Taylor DO Authorized by: Julissa Taylor, DO Consent Consent obtained? verbal Consent given by: patient Risks discussed? procedural risks discussed Immediately prior to the procedure a time out was called and the performing provider verified the correct patient, procedure, equipment, system support administrator, and site/side marked as required. Debridement Details [...] Response to treatment: procedure was tolerated well [facility] PATINSon 11-22-2023 PATINS Return Appointment i n: 1 week - Should you experience any significant changes in your wound(s) or have any questions regarding your home care instructions please contact the wound center at [phone] If after regular business hours, please call [...] Take antibiotic as directed Nursing Care Facility: [facility] Wound Treatment to R toes- Daily Cleanse [...] and sacral area daily and PRN. Normal [facility] Progress Noteon 11-17-2023 Progress Note [facility] Wound Care [facility] Nurse Visit Note Moises [place] AGE: [...] defined types were placed in this encounter. [facility] PATINSon 11-15-2023 PATINS Return Appointment i n: 1 week - Should you experience any significant changes in your wound(s) or have any questions regarding your home care instructions please contact the wound center at [phone] If after regular business hours, please call [...] Take antibiotic as directed Nursing Care Facility: [facility] Wound Treatment to R toes- Daily Cleanse [...] buttocks and sacral area daily and PRN. [facility] Progress Noteon 11-15-2023 Progress Note Assessments Nursing [...] Test Results/Process Orders 10 [] Staff telephones [facility], Nursing Homes/Clarify Orders 10 [] Routine [...] Level 5 (160 or more Points) Normal [facility] PATINSon 11-08-2023 PATINS Return Appointment i n: 1 week - Should you experience any significant changes in your wound(s) or have any questions regarding your home care instructions please contact the wound center at [phone] If after regular business hours, please call [...] Take antibiotic as directed Nursing Care Facility: [facility] Wound Treatment to R toes and R leg: Daily Cleanse wound with mild soap and water and pat dry. Apply Calcium Alginate Apply dry dressing to cover the wound and secure with tape. Apply double tubi-[place] line attendant On Am/off PM OK to shower if wound dressing covered Apply Barrier Cream to bilateral buttocks and sacral area daily and PRN. Normal [facility] Progress Noteon 11-08-2023 Progress Note Assessments [...] Test Results/Process Orders 10 [x] Staff telephones [facility], Nursing Homes/Clarify Orders 10 [x] Routine [...] Level 5 (160 or more Points) Normal [facility] PATINSon 11-01-2023 PATINS Return Appointment i n: 1 week - Should you experience any significant changes in your wound(s) or have any questions regarding your home care instructions please contact the wound center at [phone] If after regular business hours, please call [...] Take antibiotic as directed Nursing Care Facility: [facility] Wound Treatment to R toes: Daily Cleanse [...] sacral area daily and PRN. Normal [facility] No Panel Informationon 10-24 Julissa Taylor DO 10/25/2023 1:01 PM Debridement Wound/Incision 08/23/23 Lymphedema Toe- second Right Wound/Incision 08/23/23 Lymphedema Toe - third Right Wound/Incision 10/18/23 Lymphedema Toe - great Right Performed by: Julissa Taylor DO Authorized by: Julissa Talyor, DO Consent Consent obtained? verbal Consent given by: patient Risks discussed? procedural risks discussed Immediately prior to the procedure a time out was called and the performing provider verified the correct patient, procedure, equipment, system support administrator, and site/side marked as required. Debridement Details [...] treatment: procedure was tolerated well [facility] 10-25-2023 PATINS Return Appointment i n: 1 week - Should you experience any significant changes in your wound(s) or have any questions regarding your home care instructions please contact the wound center at [phone] If after regular business hours, please call [...] Take antibiotic as directed Nursing Care Facility: [facility] Wound Treatment: Wound: right toes and RLE Dressing Frequency: Dressing weekly Wound Cleansing: OK to shower if wound dressing covered Apply hydrafera blue Secondary Dressing: Superabsorbent pad or sorbex Secure With: Kerlex Roll gauze 4", Silk Tape 1" Compression: Unna boot profore lite Apply Barrier Cream to bilateral buttocks and sacral area daily and PRN. [facility] 10-18-2023 PATINS Return Appointment i n: 1 week - Should you experience any significant changes in your wound(s) or have any questions regarding your home care instructions please contact the wound center at [phone] If after regular business hours, please call [...] Take antibiotic as directed Nursing Care Facility: [facility] Wound Treatment: Wound: right toes Dressing Frequency: Dressing in place every other day Wound Cleansing: Cleanse with antibacterial soap and water, pat dry Primary Dressing: Calcium Alginate 4/4 Secondary Dressing: Superabsorbent pad or sorbex Secure With: Kerlex Roll gauze 4", Silk Tape 1" Compression: Sure press or Setopress Apply Barrier Cream to bilateral buttocks and sacral area daily and PRN. [facility] No Panel Informationon 10-10 Julissa Taylor DO 10/11/2023 11:30 AM Debridement Wound/Incision 08/23/23 Venous Ulcer Toe- second Right Performed by: Julissa Taylor DO Authorized by: Julissa Taylor, DO Consent Consent obtained? verbal Consent given by: patient Risks discussed? procedural risks discussed Immediately prior to the procedure a time out was called and the performing provider verified the correct patient, procedure, equipment, system support administrator, and site/side marked as required. Debridement Details [...] Response to treatment: procedure was tolerated well [facility] Julissa Taylor DO 10/11/2023 11:30 AM Debridement Wound/Incision 08/23/23 Venous Ulcer Toe - third Right Performed by: Julissa Taylor DO Authorized by: Julissa Taylor, DO Consent Consent obtained? verbal Consent given by: patient Risks discussed? procedural risks discussed Immediately prior to the procedure a time out was called and the performing provider verified the correct patient, procedure, equipment, system support administrator, and site/side marked as required. Debridement Details [...] Response to treatment: procedure was tolerated well [facility] PATINSon 10-11-2023 PATINS Return Appointment i n: 1 week - Should you experience any significant changes in your wound(s) or have any questions regarding your home care instructions please contact the wound center at [phone] If after regular business hours, please call [...] help with wound healing Nursing Care Facility: [facility] Wound Treatment: Wound: right toes Dressing Frequency: Keep dressing in place all week Wound Cleansing: May shower with protection - Protect wound and dressing with water repellant cover/cast cover (e.g., large plastic bag) which can be obtained at [facility] and may take shower. Hold Collagen AG for now Secondary Dressing: Calcium Alginate 4x4 Secure With: Kerlex Roll gauze 4", Silk Tape 1" Compression: Unna boot & multilayer compression wrap - 3 layers (cover toes) Apply Barrier Cream to bilateral buttocks and sacral area daily and PRN. Normal [facility] No Panel Informationon 10-03 Julissa Taylor DO 10/04/2023 4:29 PM Debridement Wound/Incision 08/23/23 Venous Ulcer Toe- second Right Performed by: Julissa Taylor DO Authorized by: Julissa Taylor, DO Consent Consent obtained? verbal Consent given by: patient Risks discussed? procedural risks discussed Immediately prior to the procedure a time out was called and the performing provider verified the correct patient, procedure, equipment, system support administrator, and site/side marked as required. Debridement Details [...] Response to treatment: procedure was tolerated well [facility] Julissa Taylor DO 10/04/2023 4:29 PM Debridement Wound/Incision 08/23/23 Venous Ulcer Toe - third Right Performed by: Julissa Taylor DO Authorized by: Julissa Taylor DO Consent Consent obtained? verbal Consent given by: patient Risks discussed? procedural risks discussed Immediately prior to the procedure a time out was called and the performing provider verified the correct patient, procedure, equipment, system support administrator, and site/side marked as required. Debridement Details [...] Response to treatment: procedure was tolerated well [facility] PATINSon 10-04-2023 PATINS Return Appointment i n: 1 week - Should you experience any significant changes in your wound(s) or have any questions regarding your home care instructions please contact the wound center at [phone] If after regular business hours, please call [...] help with wound healing Nursing Care Facility: [facility] Wound Treatment: Wound: right toes Dressing Frequency: Keep dressing in place all week Wound Cleansing: May shower with protection - Protect wound and dressing with water repellant cover/cast cover (e.g., large plastic bag) which can be obtained at [facility] and may take shower. Primary Dressing: Collagen Ag 2x2 Secondary Dressing: Calcium Alginate 4x4 Secure With: Kerlex Roll gauze 4", Silk Tape 1" Compression: Unna boot & multilayer compression wrap - 3 layers (cover toes) Apply Barrier Cream to bilateral buttocks and sacral area daily and PRN. [facility] 09-27-2023 PATINS Return Appointment i n: 1 week - Should you experience any significant changes in your wound(s) or have any questions regarding your home care instructions please contact the wound center at [phone] If after regular business hours, please call [...] help with wound healing Nursing Care Facility: [facility] Wound Treatment: Wound: right toes Dressing Frequency: Keep dressing in place all week Wound Cleansing: May shower with protection - Protect wound and dressing with water repellant cover/cast cover (e.g., large plastic bag) which can be obtained at [facility] and may take shower. Primary Dressing: Collagen Ag 2x2 Secondary Dressing: Calcium Alginate 4x4 Secure With: Kerlex Roll gauze 4", Silk Tape 1" Compression: Unna boot & multilayer compression wrap - 3 layers (cover toes) [facility] 09-20-2023 PATI Return Appointment i n: 1 week - Should you experience any significant changes in your wound(s) or have any questions regarding your home care instructions please contact the wound center at [phone] If after regular business hours, please call [...] help with wound healing Nursing Care Facility: [facility] Wound Treatment: Wound: right toes Dressing Frequency: Keep dressing in place all week Wound Cleansing: May shower with protection - Protect wound and dressing with water repellant cover/cast cover (e.g., large plastic bag) which can be obtained at [facility] and may take shower. Primary Dressing: Collagen Ag 2x2 Secondary Dressing: Calcium Alginate 4x4 Secure With: Kerlex Roll gauze 4", Silk Tape 1" Compression: Unna boot & multilayer compression wrap - 3 layers (cover toes) Normal [facility] No Panel Informationon 09-12 Julissa Taylor DO 09/13/2023 3:24 PM Debridement Wound/Incision 08/23/23 Venous Ulcer Toe- second Right Performed by: Julissa Taylor DO Authorized by: Julissa Taylor, DO Consent Consent obtained? verbal Consent given by: patient Risks discussed? procedural risks discussed Immediately prior to the procedure a time out was called and the performing provider verified the correct patient, procedure, equipment, system support administrator, and site/side marked as required. Debridement Details [...] Response to treatment: procedure was tolerated well [facility] Julissa Taylor DO 09/13/2023 3:24 PM Debridement Wound/Incision 08/23/23 Venous Ulcer Toe - third Right Performed by: Julissa Taylor DO Authorized by: Julissa Taylor, DO Consent Consent obtained? verbal Consent given by: patient Risks discussed? procedural risks discussed Immediately prior to the procedure a time out was called and the performing provider verified the correct patient, procedure, equipment, system support administrator, and site/side marked as required. Debridement Details [...] Response to treatment: procedure was tolerated well [employer] [facility] [facility] Return Appointment i n: 1 week - Should you experience any significant changes in your wound(s) or have any questions regarding your home care instructions please contact the wound center at [phone] If after regular business hours, please call [...] help with wound healing Nursing Care Facility: [facility] Wound Treatment: Wound: right toes & lower leg Dressing Frequency: Keep dressing in place all week Wound Cleansing: May shower with protection - Protect wound and dressing with water repellant cover/cast cover (e.g., large plastic bag) which can be obtained at [facility] and may take shower. Primary Dressing: Collagen Ag 2x2 Secondary Dressing: Calcium Alginate 4x4 & hydralock Secure With: Kerlex Roll gauze 4", Silk Tape 1" Compression: Unna boot & multilayer compression wrap - 3 layers (cover toes) Normal [facility] No Panel Informationon 09-05 Julissa Taylor DO 09/06/2023 3:16 PM Debridement Wound/Incision 08/23/23 Venous Ulcer Toe- second Right Performed by: Julissa Taylor DO Authorized by: Julissa Taylor, DO Consent Consent obtained? verbal Consent given by: patient Risks discussed? procedural risks discussed Immediately prior to the procedure a time out was called and the performing provider verified the correct patient, procedure, equipment, system support administrator, and site/side marked as required. Debridement Details [...] Response to treatment: procedure was tolerated well [facility] Julissa Taylor DO 09/06/2023 3:16 PM Debridement Wound/Incision 08/23/23 Venous Ulcer Toe - third Right Performed by: Julissa Taylor DO Authorized by: Julissa Taylor, DO Consent Consent obtained? verbal Consent given by: patient Risks discussed? procedural risks discussed Immediately prior to the procedure a time out was called and the performing provider verified the correct patient, procedure, equipment, system support administrator, and site/side marked as required. Debridement Details [...] Response to treatment: procedure was tolerated well [facility] Julissa Taylor DO 09/06/2023 3:16 PM Debridement Wound/Incision 08/30/23 Skin Tear Calf Right Performed by: Julissa Taylor DO Authorized by: Julissa Taylor, DO Consent Consent obtained? verbal Consent given by: patient Risks discussed? procedural risks discussed Immediately prior to the procedure a time out was called and the performing provider verified the correct patient, procedure, equipment, system support administrator, and site/side marked as required. Debridement Details [...] Response to treatment: procedure was tolerated well [facility] PATINSon 09-06-2023 PATINS Return Appointment i n: 1 week - Should you experience any significant changes in your wound(s) or have any questions regarding your home care instructions please contact the wound center at [phone] If after regular business hours, please call [...] help with wound healing Nursing Care Facility: [facility] Wound Treatment: Wound: right toes & lower leg Dressing Frequency: Keep dressing in place all week Wound Cleansing: May shower with protection - Protect wound and dressing with water repellant cover/cast cover (e.g., large plastic bag) which can be obtained at [facility] and may take shower. Primary Dressing: Collagen Ag 2x2 Secondary Dressing: Calcium Alginate 4x4 & hydralock Secure With: Kerlex Roll gauze 4", Silk Tape 1" Compression: Unna boot & multilayer compression wrap - 3 layers (cover toes) Normal [facility] No Panel Informationon 08-29 Julissa Taylor DO 08/30/2023 2:41 PM Debridement Wound/Incision 08/23/23 Venous Ulcer Leg Right;Circumferential Performed by: Julissa Taylor DO Authorized by: Julissa Taylor, DO Consent Consent obtained? verbal Consent given by: patient Risks discussed? procedural risks discussed Immediately prior to the procedure a time out was called and the performing provider verified the correct patient, procedure, equipment, system support administrator, and site/side marked as required. Debridement Details [...] to treatment: [facility] Appointment i n: 1 week - Should you experience any significant changes in your wound(s) or have any questions regarding your home care instructions please contact the wound center at [phone] If after regular business hours, please call [...] help with wound healing Nursing Care Facility: [facility] Wound Treatment: Wound: right toes & lower leg Dressing Frequency: Keep dressing in place all week Wound Cleansing: May shower with protection - Protect wound and dressing with water repellant cover/cast cover (e.g., large plastic bag) which can be obtained at [facility] and may take shower. Primary Dressing: Collagen Ag 2x2 Secondary Dressing: Calcium Alginate 4x4 & hydralock Secure With: Kerlex Roll gauze 4", Silk Tape 1" Compression: Unna boot & multilayer compression wrap - 3 layers (cover toes) [facility] PATINSon 08-23-2023 PATINS Return Appointment i n: 1 week - Should you experience any significant changes in your wound(s) or have any questions regarding your home care instructions please contact the wound center at [phone] If after regular business hours, please call [...] help with wound healing Nursing Care Facility: [facility] Wound Treatment: Wound: right toes & lower leg Dressing Frequency: Keep dressing in place all week Wound Cleansing: May shower with protection - Protect wound and dressing with water repellant cover/cast cover (e.g., large plastic bag) which can be obtained at [facility] and may take shower. Primary Dressing: Collagen Ag 2x2 Secondary Dressing: Calcium Alginate 4x4 & hydralock Secure With: Kerlex Roll gauze 4", Silk Tape 1" Compression: Unna boot & multilayer compression wrap - 3 layers (cover toes) Normal [facility] Progress Noteon 08-23-2023 Progress Note [facility] [address] [place] [address] Loc: [phone] Wound Care Visit - New Patient Progress [...] , Rfl: cholecalciferol (Vitamin D3) 1.25 MG (39982 UT) tablet, Take by mouth 1 (one) [...] sprinkle (De (more content not included)... Normal [facility] Basophil percentageOrdered B y: Demetrius Fenton on 07-16-2023 Basophil percentage 25-50 SEEN /hpf 0-5 [facility] Bilirubin Test strip Ql (U)O rdered By: Demetrius Fenton on 07-16-2023 Bilirubin Ql (U) Negative Negative [facility] Ketones Test strip Ql (U)Ord ered By: Demetrius Fenton on 07-16-2023 Ketones Ql (U) 5 mg/dl Negative [facility] Mucus LM Ql (Urine sed)Order ed By: Demetrius Fenton on 07-16-2023 Mucus Ql (Urine sed) 0 SEEN /hpf [facility] Nitrite Test strip Ql (U)Ord ered By: Demetrius Fenton on 07-16-2023 Nitrite Ql (U) Positive Negative [facility] No Panel InformationOrdered By: Demetrius Fenton on 07-16-2023 Urine RBC 0 SEEN /hpf 0-5 [facility] Protein Test strip Ql (U)Ord ered By: Demetrius Fenton on 07-16-2023 Protein Ql (U) Negative Negative [facility] Squamous epithelial cells de tection in urine sediment by light microscopyOrdered By: Demetrius Fenton on 07-16-2023 Epithelial cells.squamous LM Ql (Urine sed) 0-5 SEEN /hpf 0-5 [facility] Urine blood detectionOrdered By: Demetrius Fenton on 07-16-2023 RBC Ql (U) Negative Negative [facility] Urine clarityOrdered By: Miriam Fenton on 07-16-2023 Clarity (U) Sl. Cloudy Clear [facility] Urine color determinationOrd ered By: Demetrius Fenton on 07-16-2023 Color (U) Yellow Yellow [facility] Urine glucose detectionOrder ed By: Demetrius Fenton on 07-16-2023 Glucose Ql (U) Normal mg/dl Normal [facility] Urine leukocyte esterase det ection by dipstickOrdered By: Demetrius Fenton on 07-16-2023 Leukocyte esterase Test strip Ql (U) 500 /ul Negative [facility] Urine pHOrdered By: Demetrius astorga on 07-16-2023 pH (U) 6.0 [pH] 5.0 - 8.0 [facility] Urine sediment bacteria coun t by microscopy (number/high power field)Ordered By: Demetrius Fenton on 07-16-2023 Bacteria LM.HPF (Urine sed) [#/Area] 2 /[HPF] None Seen [facility] Urine specific gravity measu rementOrdered By: Demetrius Fenton on 07-16-2023 Specific gravity (U) [Rel density] 1.015 1.002-1.030 [facility] Urine urobilinogen measureme ntOrdered By: Demetrius Fenton on 07-16-2023 Urobilinogen Ql (U) 1 mg/dl Normal [facility] Bacteria identified Cx Nom ( Wound)Ordered By: Demetrius Fenton on 06-28-2023 Wound Culture Meth. resistant Stap h. aureus [facility] Wound Culture Enterococcus faecalis [facility] Wound Culture Acinetobacter junii Wo [facility] Wound Culture Pseudomonas aeruginosa [facility] Gram stain for investigation of transfusion reactionOrdered By: Demetrius Fenton on 06-28-2023 Microscopic observation Gram stain Nom (Unsp spec) [facility] Bacteria identified Cx Nom ( Wound)Ordered By: Demetrius Fenton on 06-27-2023 Wound Culture Pseudomonas aeruginosa [facility] Wound Culture Enterococcus faecalis [facility] Gram stain for investigation of transfusion reactionOrdered By: Demetrius Fenton on 06-27-2023 Microscopic observation Gram stain Nom (Unsp spec) [facility] BLOOD CULTUREon 06-23-2023 Bacteria identified Cx Nom (Bld) BLOOD CULTURE Reference No growth at 5 days ORDER COMMENTS: Blood Collection Site: Left Forearm [ S = SUSCEPTIBLE R = RESISTANT I = INTERMEDIATE S-DD = Susceptible-dose dependent NS = Non-susceptible NO = No Interpretation ] Normal [facility] Comment on above: Performed By: #### L [id number] #### [employer] Operator: SHARLA FINNEY ([phone]) [facility] ([facility]) [address] [place] [address] CT ABDOMEN PELVIS W CONTRAST on 06-23-2023 CT ABDOMEN PELVIS W CONTRAST [facility] 1960 [id number] Exam Date/Time: 06/23/2023 00:08 Procedure: CT ABDOMEN [...] and left has shoulder issues. Normal [facility] CT Abdomen and Pelvis W cont rast Constantine 06-23-2023 No evidence of acute pathology within the abdomen or pelvis. Interval decrease in size of peripancreatic fluid collection likely representing sequela of remote pancreatitis. Constipation. Report Dictated on Electronically Signed By: Barry Castillo MD Electronically Signed Date/Time: 06/23/2023 12:33 AM EDT [facility] [employer] Patient Name: MOISES VERONICA : 1960 [...] evidence of acute fracture or dislocation. [facility] Barry Castillo MD - 06/23/2023 Patient Name: MOIS[facility]ADRID : 1960 [id number] Exam Date/Time: 06/23/2023 00:08 Procedure: CT ABDOMEN [...] Electronically Signed Date/Time: 06/23/2023 12:[address] Abdomen and Pelvis W cont rast IVOrdered By: Barry Castillo on 06-23-2023 [facility] Work Phone: ED Nursing Noteon 06-23-2023 ED Nursing Note [place] [facility] called and given patient update and ETA for discharge/transport Danyell Mcneill RN 06/23/23 012 [facility] ED Nursing Note [facility] ETA 0300 Danyell Mcneill RN 06/23/23 0127 [facility] No Panel InformationOrdered By: Jose Phillips on 06-23-2023 P Harbert 44 degrees [facility] Work Phone: NE Interval 159 ms [facility] Work Phone: QRS Harbert -36 degrees [employer] Work Phone: QRSD Interval 108 ms [facility] [employer] Work Phone: QT Interval 430 ms [facility] Work Phone: QTC Interval 476 ms [facility] Work Phone: T Wave Harbert 28 degrees [employer] Work Phone: [employer] Work Phone: No Panel Informationon 06-22 Jose Phillips D O - 06/23/2023 IMPRESSION: Sinus rhythm Abnormal R-wave progression, early transition Left ventricular hypertrophy Borderline prolonged QT interval Compared to ECG 06/09/22 Tachycardia no longer present LEFT VENTRICULAR HYPERTROPHY again noted Electronically Signed On 06-23-2023 00:11:27 EDT by Jose Phillips [facility] [employer] Vital signsOrdered By: Lacie Phillips on 06-23-2023 Heart rate 73 /min bpm [facility] Work Phone: BLOOD CULTUREon 06-22-2023 Bacteria identified Cx Nom (Bld) BLOOD CULTURE Reference No growth at 5 days ORDER COMMENTS: Blood Collection Site: Left Forearm [ S = SUSCEPTIBLE R = RESISTANT I = INTERMEDIATE S-DD = Susceptible-dose dependent NS = Non-susceptible NO = No Interpretation ] [facility] Comment on above: Performed By: #### L [id number] ####[employer] Operator: SHARLA FINNEY ([phone])[facility] ([facility])[address] [place] [address] CBC W Auto Differential pane l (Bld)on 06-22-2023 Basophils (Bld) [#/Vol] 0.1 10*3/uL 0.0 - 0.2 10*3/uL [facility] Basophils/100 WBC (Bld) 0.5 % 0.0 - 2.0 % [facility] Eosinophils (Bld) [#/Vol] 0.3 10*3/uL 0.0 - 0.5 10*3/uL [facility] Eosinophils/100 WBC (Bld) 2.7 % 0.0 - 6.0 % [facility] Erythrocyte distribution width (RBC) [Ratio] 13.1 % 11.5 - 15.0 % [facility] Hematocrit (Bld) [Volume fraction] 44.6 % 40.0 - 52.0 % [facility] Hemoglobin (Bld) [Mass/Vol] 15.1 g/dL 13.0 - 18.0 g/dL [facility] Immature granulocytes (Bld) [#/Vol] 0.1 10*3/uL High NINF - 0.1 10*3/uL [facility] Immature granulocytes/100 WBC (Bld) 0.5 % 0.0 - 2.0 % [facility] Interpretation and review of laboratory results Abnormal [facility] Lymphocytes (Bld) [#/Vol] 2.7 10*3/uL 1.0 - 4.3 10*3/uL [facility] Lymphocytes/100 WBC (Bld) 25.5 % 15.0 - 45.0 % [facility] MCH (RBC) [Entitic mass] 30.6 pg 26.0 - 34.0 pg [facility] MCHC (RBC) [Mass/Vol] 33.9 % 30.5 - 36.0 % [facility] MCV (RBC) [Entitic vol] 90.5 fL 77.0 - 99.0 fL [facility] Monocytes (Bld) [#/Vol] 1.0 10*3/uL High 0.0 - 0.9 10*3/uL [facility] Monocytes/100 WBC (Bld) 9.5 % 5.0 - 13.0 % [facility] Neutrophils (Bld) [#/Vol] 6.5 10*3/uL 1.8 - 7.5 10*3/uL [facility] Neutrophils/100 WBC (Bld) 61.3 % 38.0 - 82.0 % [facility] Nucleated RBC/100 WBC (Bld) [Ratio] 0.0 % [facility] Platelet mean volume (Bld) [Entitic vol] 10.7 fL 9.0 - 12.7 fL [facility] Platelets (Bld) [#/Vol] 181 10*3/uL 140 - 440 10*3/uL [facility] RBC (Bld) [#/Vol] 4.93 10*6/uL 4.40 - 5.9 0 10*6/uL [facility] WBC (Bld) [#/Vol] 10.5 10*3/uL 3.6 - 10.7 10*3/uL [facility] CBC WITH AUTO DIFFERENTIALon 06-22-2023 Basophils (Bld) [#/Vol] 0.1 10*3/uL Normal 0.0-0.2 [facility] Comment on above: Performed By: #### L [id number] #### [employer] Operator: SHARLA FINNEY ([id number]) [facility] ([facility]) [address] [place] [address] [place] Basophils/100 WBC (Bld) 0.5 % Normal 0.0-2.0 [facility] Comment on above: Performed By: #### L [id number] #### [employer] Operator: SHARLA FINNEY ([id number]) [facility] ([facility]) [address] [place] [address] [place] Eosinophils (Bld) [#/Vol] 0.3 10*3/uL Normal 0.0-0.5 [facility] Comment on above: Performed By: #### L [id number] #### [employer] Operator: SHARLA FINNEY ([id number]) [facility] ([facility]) [address] [place] [address] [place] Eosinophils/100 WBC (Bld) 2.7 % Normal 0.0-6.0 [facility] Comment on above: Performed By: #### L [id number] #### [employer] Operator: SHARLA [id number]) [facility]) [address] [place] [address] Erythrocyte distribution width (RBC) [Ratio] 13.1 % Normal 11.5-15.0 [facility] Comment on above: Performed By: #### L [id number] #### [employer] Operator: SHARLA FINNEY ([id number]) [facility]) [address] [place] [address] Hematocrit (Bld) [Volume fraction] 44.6 % Normal 40.0-52.0 [facility] Comment on above: Performed By: #### L [id number] #### [employer] Operator: SHARLA FINNEY ([id number]) [facility]) [address] [place] [address] Hemoglobin (Bld) [Mass/Vol] 15.1 g/dL Normal 13.0-18.0 [facility] Comment on above: Performed By: #### L [id number] #### [employer] Operator: SHARLA FINNEY ([id number]) [facility] ([facility]) [address] [place] [address] IMMATURE GRANS % 0.5 % Normal 0.0-2.0 [facility] Comment on above: Performed By: #### L [id number] #### [employer] Operator: SHARLA FINNEY ([id number]) [facility] ([facility]) [address] [place] [address] IMMATURE GRANS ABSOLUTE 0.1 10*3/uL High <0.1 [facility] Comment on above: Performed By: #### L [id number] #### [employer] Operator: SHARLA FINNEY ([id number]) [facility]) [address] [place] [address] Lymphocytes (Bld) [#/Vol] 2.7 10*3/uL Normal 1.0-4.3 [facility] Comment on above: Performed By: #### L [id number] #### [employer] Operator: SHARLA FINNEY ([id number]) [facility]) [address] [place] [address] Lymphocytes/100 WBC (Bld) 25.5 % Normal 15.0-45.0 [facility] Comment on above: Performed By: #### L [id number] #### [employer] Operator: SHARLA FINNEY ([phone]) [facility]) [address] [place] [address] MCH (RBC) [Entitic mass] 30.6 pg Normal 26.0-34.0 [facility] Comment on above: Performed By: #### L [id number] #### [employer] Operator: SHARLA FINNEY ([id number]) [facility] ([facility]) [address] [place] [address] MCHC 33.9 % Normal 30.5-36.0 [facility] Comment on above: Performed By: #### L [id number] #### [employer] Operator: SHARLA FINNEY ([id number]) [facility]) [address] [place] [address] MCV (RBC) [Entitic vol] 90.5 fL Normal 77.0-99.0 [facility] Comment on above: Performed By: #### L [id number] #### [employer] Operator: SHARLA FINNEY ([phone]) [facility] ([facility]) [address] [place] [address] Monocytes (Bld) [#/Vol] 1.0 10*3/uL High 0.0-0.9 [facility] Comment on above: Performed By: #### L [id number] #### [employer] Operator: SHARLA FINNEY ([id number]) [facility] ([facility]) [address] [place] [address] Monocytes/100 WBC (Bld) 9.5 % Normal 5.0-13.0 [facility] Comment on above: Performed By: #### L [id number] #### [employer] Operator: SHARLA FINNEY ([id number]) [facility]) [address] [place] [address] NEUTROPHILS ABSOLUTE 6.5 10*3/uL Normal 1.8-7.5 [facility] Comment on above: Performed By: #### L [id number] #### [employer] Operator: SHARLA FINNEY ([id number]) [facility] ([facility]) [address] [place] [address] Neutrophils/100 WBC (Bld) 61.3 % Normal 38.0-82.0 [facility] Comment on above: Performed By: #### L [id number] #### [employer] Operator: SHARLA FINNEY ([id number]) [facility]) [address] [place] [address] NRBC 0.0 /100 WBCs Normal 0.0-2.0 [facility] Comment on above: Performed By: #### L [id number] #### [employer] Operator: SHARLA FINNEY ([id number]) [facility] ([facility]) [address] [place] [address] Platelet mean volume (Bld) [Entitic vol] 10.7 fL Normal 9.0-12.7 [facility] Comment on above: Performed By: #### L [id number] #### [employer] Operator: SHARLA FINNEY ([id number]) [facility]) [address] [place] [address] Platelets (Bld) [#/Vol] 181 10*3/uL Normal 140-440 [facility] Comment on above: Performed By: #### L [id number] #### [employer] Operator: SHARLA FINNEY ([id number]) [facility] ([facility]) [address] [place] [address] RBC (Bld) [#/Vol] 4.93 10*6/uL Normal 4.40-5.90 [facility] Comment on above: Performed By: #### L [id number] #### [employer] Operator: SHARLA FINNEY ([id number]) [facility] ([facility]) [address] [place] [address] WBC (Bld) [#/Vol] 10.5 10*3/uL Normal 3.6-10.7 [facility] Comment on above: Performed By: #### L [id number] #### [employer] Operator: SHARLA FINNEY ([id number]) [facility] ([facility]) [address] [place] [address] COMPREHENSIVE METABOLIC PANE Micah 03-14-2024 Albumin [Mass/Vol] 3.9 g/dL Normal 3.5-5.0 [facility] Comment on above: Performed By: #### L [id number] #### [employer] Operator: SHARLA FINNEY ([id number]) [facility] ([facility]) [address] [place] [address] ALP [Catalytic activity/Vol] 80 U/L Normal 38-126 [facility] Comment on above: Performed By: #### L [id number] #### [employer] Operator: SHARLA FINNEY ([id number]) [facility] ([facility]) [address] [place] [address] ALT [Catalytic activity/Vol] 29 U/L Normal 0-49 [facility] Comment on above: Performed By: #### L [id number] #### [employer] Operator: SHARLA FINNEY ([id number]) [facility] ([facility]) [address] [place] [address] Anion gap [Moles/Vol] 5 mmol/L Normal 3-13 [facility] Comment on above: Performed By: #### L [id number] #### [employer] Operator: SHARLA FINNEY ([id number]) [facility] ([facility]) [address] [place] [address] AST [Catalytic activity/Vol] 26 U/L Normal 15-46 [facility] Comment on above: Performed By: #### L [id number] #### [employer] Operator: SHARLA FINNEY ([id number]) [facility] ([facility]) [address] [place] [address] Bilirubin [Mass/Vol] 0.7 mg/dL Normal 0.2-1.3 [facility] Comment on above: Performed By: #### L [id number] #### [employer] Operator: SHARLA FINNEY ([id number]) [facility] ([facility]) [address] [place] [address] Calcium [Mass/Vol] 9.3 mg/dL Normal 8.4-10.4 [facility] Comment on above: Performed By: #### L [id number] #### [employer] Operator: SHARLA FINNEY ([id number]) [facility] ([facility]) [address] [place] [address] Chloride [Moles/Vol] 101 mmol/L Normal 98-107 [facility] Comment on above: Performed By: #### L [id number] #### [employer] Operator: SHARLA FINNEY ([id number]) [facility] ([facility]) [address] [place] [address] [place] CO2 [Moles/Vol] 30 mmol/L Normal 22-30 [facility] Comment on above: Performed By: #### L [id number] #### [employer] Operator: SHARLA FINNEY ([id number]) [facility] ([facility]) [address] [place] [address] Creatinine [Mass/Vol] 0.89 mg/dL Normal 0.66-1.25 [facility] Comment on above: Performed By: #### L [id number] #### [employer] Operator: SHARLA FINNEY ([id number]) [facility] [address] [place] [address] GLOMERULAR FILTRATION RATE ML/MIN/1.73 SQ M.PREDICTED >90.0 Normal >60.0 [facility] Comment on above: Result Comment: Calc ulation based on the Chronic Kidney Disease Epidemiology Collaboration (CKD-EPI) equation refit without adjustment for race Performed By: #### L [id number] #### [employer] Operator: SHARLA FINNEY ([id number]) [facility] ([facility]) [address] [place] [address] [place] Glucose [Mass/Vol] 188 mg/dL High 70-100 [facility] Comment on above: Performed By: #### L [id number] #### [employer] Operator: SHARLA FINNEY ([id number]) [facility] ([facility]) [address] [place] [address] Potassium [Moles/Vol] 4.4 mmol/L Normal 3.5-5.1 [facility] Comment on above: Performed By: #### L [id number] #### [employer] Operator: SHARLA FINNEY ([id number]) [facility] ([address] Protein [Mass/Vol] 7.1 g/dL Normal 6.3-8.2 [facility] Comment on above: Performed By: #### L [id number] #### [employer] Operator: SHARLA FINNEY ([id number]) [facility]) [address] [place] [address] Sodium [Moles/Vol] 136 mmol/L Normal 135-145 [facility] Comment on above: Performed By: #### L [id number] #### [employer] Operator: SHARLA FINNEY ([id number]) [facility]) [address] [place] [address] Urea nitrogen [Mass/Vol] 17 mg/dL Normal 9-20 [facility] Comment on above: Performed By: #### L [id number] #### [employer] Operator: SHARLA FINNEY ([id number]) [facility]) [address] [place] [address] CT Abdomen and Pelvis W cont rast Constantine 06-22-2023 Radiology Study observation (narrative) [facility]th CULTURE ANAEROBICon 06-22-19 24 CULTURE ANAEROBIC ANAEROBIC CULTURE Reference No growth at 5 days [ S = SUSCEPTIBLE R = RESISTANT I = INTERMEDIATE S-DD = Susceptible-dose dependent NS = Non-susceptible NO = No Interpretation ] Normal [facility] Comment on above: Performed By: #### L [id number] #### [employer] Operator: SHARLA FINNEY ([phone]) [facility]) [address] [place] [address] CULTURE, AEROBIC BACTERIA WI TH GRAM STAINon [...] Non-susceptible NO = No Interpretation ] Normal [facility] Comment on above: Performed By: #### L [id number] #### [employer] Operator: SHARLA FINNEY ([id number]) [facility] ([facility]) [address] [place] [address] Comprehensive metabolic 1998 panelon 06-22-2023 Albumin [Mass/Vol] 3.9 g/dL 3.5 - 5.0 g/dL [facility] ALP [Catalytic activity/Vol] 80 U/L 38 - 126 U/L [facility] ALT [Catalytic activity/Vol] 29 U/L 0 - 49 U/L [facility] Anion gap [Moles/Vol] 5 mmol/L 3 - 13 mmol/L [facility] AST [Catalytic activity/Vol] 26 U/L 15 - 46 U/L [facility] Bilirubin [Mass/Vol] 0.7 mg/dL 0.2 - 1 .3 mg/dL [facility] Calcium [Mass/Vol] 9.3 mg/dL 8.4 - 10. 4 mg/dL [facility] Chloride [Moles/Vol] 101 mmol/L 98 - 10 7 mmol/L [facility] CO2 [Moles/Vol] 30 mmol/L 22 - 30 mmol/L [facility] Creatinine [Mass/Vol] 0.89 mg/dL 0.66 - 1.25 mg/dL [facility] GFR/1.73 sq M.predicted MDRD (S/P/Bld) [Vol rate/Area] - PINF [facility] Comment on above: Calculation based on the Chronic Kidney Disease Epidemiology Collaboration (CKD-EPI) equation refit without adjustment for race Glucose [Mass/Vol] 188 mg/dL High 70 - 100 mg/dL [facility] Interpretation and review of laboratory results Abnormal [facility] Potassium [Moles/Vol] 4.4 mmol/L 3.5 - 5.1 mmol/L [facility] Protein [Mass/Vol] 7.1 g/dL 6.3 - 8.2 g/dL [facility] Sodium [Moles/Vol] 136 mmol/L 135 - 145 mmol/L [facility] [facility] Urea nitrogen [Mass/Vol] 17 mg/dL 9 - 20 mg/dL [facility] ED Provider Noteon ED Provider Note [...] who presents to the emergency department from assisted for complaints of actual onset intermittent right [...] Historical Med cholecalciferol (Vitamin D3) 1.25 MG (21486 UT) tablet Take by mouth 1 (one) [...] crush (more content not included)... Normal [facility] ED Provider Note Emergency Department Encounter [facility] ED Patient: Moises Madrid : 1960 Date of Evaluation: 06/22/2023 ED Supervising Physician: Fred Holloway MD I independently examined and evaluated Moises Madrid. This will serve as my Supervisory note as the client operations manager of record and shared attestation. I [...] for clarification.) Fred Holloway MD Acute Care [facility] Fred Holloway MD 06/23/23 1812 Normal [facility] LIPASEon 06-22-2023 Lipase [Catalytic activity/Vol] 138 U/L Normal 23-300 [facility] Comment on above: Performed By: #### L [id number] #### [employer] Operator: SHARLA FINNEY ([id number]) [facility] ([facility]) [address] [place] [address] Laboratory - Chemistry and C hemistry - challengeon 06-22-2023 Troponin I.cardiac [Mass/Vol] ng/mL NINF - 0.034 ng/mL [facility] Lipase [Catalytic activity/Vol] 138 U/L 23 - 300 U/L [facility] Oligomerix Lipase [Catalytic activity/V ol]on 06-22-2023 Interpretation and review of laboratory results Normal [facility] No Panel Informationon 06-21 [facility] Progress Noteon 06-22-2023 Progress Note Culture is positive but resistant to antibiotics prescribed at discharge. Positive for Pseudomonas. Antibiotic needs to be changed to ciprofloxacin 500 mg twice daily for 7 days, please contact patient and inform them of the results and send in prescription. Normal [facility] Progress Note Culture result reviewed. Awaiting sensitivity results Normal [facility] TROPONIN Ion 06-22-2023 Troponin I.cardiac [Mass/Vol] ng/mL Normal <0.034 [facility] Comment on above: Result Comment: [place] [place] COMMENTS: Patients with high levels of Biotin oral intake (ie >5 mg/day) may have falsely decreased Troponin levels. Performed By: #### L [id number] #### [employer] Operator: SHARLA FINNEY ([id number]) [facility] ([facility]) [address] [place] [address] Troponin I.cardiac [Mass/Vol ]on 06-22-2023 Interpretation and review of laboratory results Normal [facility] Patients with high levels of Biotin oral intake (ie >5 mg/day) may have falsely decreased Troponin levels. [facility] Basophil percentageOrdered B y: Demetrius Fenton on 06-12-2023 Chloride [Moles/Vol] 105 mmol/L 98-[address] [facility] Glucose [Mass/Vol] 118 mg/dL 74-106 [facility] Comment on above: Fasting Glucose resu lt from 100 to 125 mg/dL suggests IMPAIRED HOMEOSTASIS per A.D.A. criteria. Hemoglobin (Bld) [Mass/Vol] 15.1 g/dL 13.0-16.5 [facility] Potassium [Moles/Vol] 4.3 mmol/L 3.5-5.1 [facility] Sodium [Moles/Vol] 136 mmol/L 136-145 [facility] WBC (Bld) [#/Vol] 7.2 10*3/uL 4.4-11.0 [facility] Determination of erythrocyte mean corpuscular volume (MCV)Ordered By: Demetrius Fenton on 06-12-2023 MCV (RBC) [Entitic vol] 89.3 fL 80-94 [facility] Erythrocyte distribution wid th ratioOrdered By: Demetrius Fenton on 06-12-2023 Erythrocyte distribution width (RBC) [Ratio] 13.2 % 11.6-14.6 [facility] Erythrocyte distribution wid th standard deviationOrdered By: Demetrius Fenton on 06-12-2023 Erythrocyte distribution width (RBC) [Entitic vol] 41.8 fL 35.1-43.9 [facility] Hematocrit Auto (Bld) [Volum e fraction]Ordered By: Demetrius Fenton on 06-12-2023 Hematocrit (Bld) [Volume fraction] 45.2 % 40-54 [facility] Laboratory - Chemistry and C hemistry - challengeOrdered By: Demetrius Fenton on 06-12-2023 CO2 [Moles/Vol] 27.0 mmol/L 21.0-32.0 [facility] Urea nitrogen/Creatinine [Mass ratio] 15.7 mg/mg 10-20 [facility] Laboratory - Hematology and Cell countsOrdered By: Demetrius Fenton on 06-12-2023 MCH (RBC) [Entitic mass] 29.8 pg 27.0-32.0 [facility] MCHC (RBC) [Mass/Vol] 33.4 g/dL 32-36 [facility] Platelet mean volume (Bld) [Entitic vol] 11.2 fL 6.2-12.0 [facility] Platelets (Bld) [#/Vol] 154 10*3/uL 150-450 [facility] No Panel InformationOrdered By: Demetrius Fenton on 06-12-2023 Estimated GFR (MDRD) Amer 90 mL/min >60 [facility] Comment on above: GFR Calc Estimated GFR (MDRD) Non-Af Amer 74 mL/min >60 [facility] Comment on above: Non- GFR Calc RBC Auto (Bld) [#/Vol]Ordere d By: Demetrius Fenton on 06-12-2023 RBC (Bld) [#/Vol] 5.06 10*6/uL 4.6-6.2 [facility] Serum or plasma calcium roseanne urement (mass/volume)Ordered By: Demetrius Fenton on 06-12-2023 Calcium [Mass/Vol] 9.5 mg/dL 8.5-10.1 [facility] Serum or plasma creatinine m easurement (mass/volume)Ordered By: Demetrius Fenton on 06-12-2023 Creatinine [Mass/Vol] 1.08 mg/dL 0.70-1.30 [facility] Comment on above: The validity of the calculated GFR & GFRAA in patients over 70 years has not been determined. Clinical correlation is essential. Serum or plasma urea nitroge n measurement (mass/volume)Ordered By: Demetrius Fenton on 06-12-2023 Urea nitrogen [Mass/Vol] 17 mg/dL 7-18 [facility] Thin prep Papanicolaou smear with manual screeningOrdered By: Demetrius Fenton on 06-12-2023 Thin prep Papanicolaou smear with manual screening 4 5-15 [facility] Whole blood hemoglobin A1c/t otal hemoglobin ratio (mass fraction)Ordered By: Demetrius Fenton on 06-12-2023 HbA1c (Bld) [Mass fraction] 6.5 % 3.8-5.6 [facility] Comment on above: Normal < 5.7 % Predi abetic 5.7 - 6.4 % Diabetic >or= 6.5 % Please note range changes. Basophil percentageOrdered B y: Demetrius Fenton on 03-14-2023 Bilirubin [Mass/Vol] 0.90 mg/dL 0.20-1.[address] [facility] Comment on above: For patients on eltr ombopag therapy, use of Dimension Danese TBIL is not recommended. Chloride [Moles/Vol] 104 mmol/L 98-[address] [facility] Glucose [Mass/Vol] 131 mg/dL 74-106 [facility] Comment on above: Fasting Glucose resu lt greater than or equal to 126 mg/dL suggests DIABETES MELLITUS per A.D.A. criteria. Potassium [Moles/Vol] 4.8 mmol/L 3.5-5.1 [facility] Protein [Mass/Vol] 6.9 g/dL 6.4-8.2 [facility] Sodium [Moles/Vol] 137 mmol/L 136-145 [facility] WBC (Bld) [#/Vol] 6.4 10*3/uL 4.4-11.0 [facility] Blood erythrocytes count (nu mber/volume)Ordered By: Demetrius Fenton on 03-14-2023 RBC (Bld) [#/Vol] 4.77 10*6/uL 4.6-6.2 [facility] Blood hemoglobin measurement (mass/volume)Ordered By: Demetrius Fenton on 03-14-2023 Hemoglobin (Bld) [Mass/Vol] 14.3 g/dL 13.0-16.5 [facility] Blood platelet mean volumeOr dered By: Demetrius Fenton on 03-14-2023 Platelet mean volume (Bld) [Entitic vol] 11.3 fL 6.2-12.0 [facility] Determination of erythrocyte mean corpuscular volume (MCV)Ordered By: Demetrius Fenton on 03-14-2023 MCV (RBC) [Entitic vol] 90.8 fL 80-94 [facility] Hematocrit Auto (Bld) [Volum e fraction]Ordered By: Demetrius Fenton on 03-14-2023 Hematocrit (Bld) [Volume fraction] 43.3 % 40-54 [facility] Laboratory - Chemistry and C hemistry - challengeOrdered By: Demetrius Fenton on 03-14-2023 ALP [Catalytic activity/Vol] 85 U/L 45-117 [facility] ALT [Catalytic activity/Vol] 36 U/L 16-61 [facility] CO2 [Moles/Vol] 29.0 mmol/L 21.0-32.0 [facility] Globulin (S) [Mass/Vol] 3.6 g/dL 2.2-4.2 [facility] Urea nitrogen/Creatinine [Mass ratio] 19.6 mg/mg 10-20 [facility] Laboratory - Hematology and Cell countsOrdered By: Demetrius Fenton on 03-14-2023 Erythrocyte distribution width (RBC) [Entitic vol] 42.7 fL 35.1-43.9 [facility] Erythrocyte distribution width (RBC) [Ratio] 13.1 % 11.6-14.6 [facility] MCH (RBC) [Entitic mass] 30.0 pg 27.0-32.0 [facility] MCHC Auto (RBC) [Mass/Vol]Or dered By: Demetrius Fenton on 03-14-2023 MCHC (RBC) [Mass/Vol] 33.0 g/dL 32-36 [facility] No Panel InformationOrdered By: Demetrius Fenton on 03-14-2023 Estimated GFR (MDRD) Amer 91 mL/min >60 [facility] Comment on above: GFR Calc Estimated GFR (MDRD) Non-Af Amer 75 mL/min >60 [facility] Comment on above: Non- GFR Calc Valproic Acid (Depakene) Level 30 ug/mL 50-100 [facility] Platelets bldOrdered By: Pet tanisha Fenton on 03-14-2023 Platelets (Bld) [#/Vol] 158 10*3/uL 150-450 [facility] Serum or plasma albumin roseanne urement (mass/volume)Ordered By: Demetrius Fenton on 03-14-2023 Albumin [Mass/Vol] 3.3 g/dL 3.2-5.0 [facility] Serum or plasma albumin/glob ulin mass ratioOrdered By: Demetrius Fenton on 03-14-2023 Albumin/Globulin [Mass ratio] 0.9 {ratio} 0.9-2.4 [facility] Serum or plasma calcium roseanne urement (mass/volume)Ordered By: Demetrius Fenton on 03-14-2023 Calcium [Mass/Vol] 8.7 mg/dL 8.5-10.1 [facility] Serum or plasma creatinine m easurement (mass/volume)Ordered By: Demetrius Fenton on 03-14-2023 Creatinine [Mass/Vol] 1.07 mg/dL 0.70-1.30 [facility] Comment on above: The validity of the calculated GFR & GFRAA in patients over 70 years has not been determined. Clinical correlation is essential. Serum or plasma urea nitroge n measurement (mass/volume)Ordered By: Demetrius Fenton on 03-14-2023 Urea nitrogen [Mass/Vol] 21 mg/dL 7-18 [facility] Thin prep Papanicolaou smear with manual screeningOrdered By: Demetrius Fenton on 03-14-2023 Thin prep Papanicolaou smear with manual screening 23 U/L 15-37 [facility] Thin prep Papanicolaou smear with manual screening 4 5-15 [facility] Basophil percentageOrdered B y: Demetrius Fenton on 03-13-2023 Cholesterol [Mass/Vol] 139 mg/dL <200 [facility] Comment on above: <200 mg/dL Desirable 200-240 mg/dL Borderline >240 mg/dL High Risk Triglyceride [Mass/Vol] 168 mg/dL <199 [facility] Comment on above: The drugs N-Acetylcy steine and Metamizole may falsely depress this assay.Serum Triglycerides Reference Interval Normal <150 mg/dL Borderline high 150 - 199 mg/dL High 200 - 499 mg/dL Very High > or = 500 mg/dL Serum or plasma cholesterol in HDL measurement (mass/volume)Ordered By: Demetrius Fenton on 03-13-2023 Cholesterol in HDL [Mass/Vol] 49 mg/dL >40 [facility] Comment on above: The drugs N-Acetylcy steine and Metamizole may falsely depress this assay. Reference Range HDL <40 mg/dL Low HDL Cholesterol HDL >or= 60 mg/dL High HDL Cholesterol Serum or plasma cholesterol in VLDL measurement (mass/volume)Ordered By: Demetrius Fenton on 03-13-2023 Cholesterol in VLDL [Mass/Vol] 34 mg/dL 5-40 [facility] Serum or plasma low density lipoprotein (LDL) cholesterol measurement (mass/volume)Ordered By: Demetrius Fenton on 03-13-2023 Cholesterol in LDL [Mass/Vol] 56 mg/dL 0-130 [facility] Basophil percentageOrdered B y: Demetrius Fenton on 02-09-2023 Bilirubin [Mass/Vol] 0.50 mg/dL 0.20-1.[address] [facility] Comment on above: For patients on eltr ombopag therapy, use of Dimension Danese TBIL is not recommended. Chloride [Moles/Vol] 104 mmol/L 98-[address] [facility] Glucose [Mass/Vol] 128 mg/dL 74-106 [facility] Comment on above: Fasting Glucose resu lt greater than or equal to 126 mg/dL suggests DIABETES MELLITUS per A.D.A. criteria. Potassium [Moles/Vol] 4.6 mmol/L 3.5-5.1 [facility] Protein [Mass/Vol] 7.2 g/dL 6.4-8.2 [facility] Sodium [Moles/Vol] 136 mmol/L 136-145 [facility] WBC (Bld) [#/Vol] 7.9 10*3/uL 4.4-11.0 [facility] Blood erythrocytes count (nu mber/volume)Ordered By: Demetrius Fenton on 02-09-2023 RBC (Bld) [#/Vol] 4.93 10*6/uL 4.6-6.2 [facility] Blood hemoglobin measurement (mass/volume)Ordered By: Demetrius Fenton on 02-09-2023 Hemoglobin (Bld) [Mass/Vol] 14.8 g/dL 13.0-16.5 [facility] Blood platelet mean volumeOr dered By: Demetrius Fenton on 02-09-2023 Platelet mean volume (Bld) [Entitic vol] 11.3 fL 6.2-12.0 [facility] Determination of erythrocyte mean corpuscular volume (MCV)Ordered By: Demetrius Fenton on 02-09-2023 MCV (RBC) [Entitic vol] 88.0 fL 80-94 [facility] Hematocrit Auto (Bld) [Volum e fraction]Ordered By: Demetrius Fentno on 02-09-2023 Hematocrit (Bld) [Volume fraction] 43.4 % 40-54 [facility] Laboratory - Chemistry and C hemistry - challengeOrdered By: Demetrius Fenton on 02-09-2023 ALP [Catalytic activity/Vol] 92 U/L 45-117 [facility] ALT [Catalytic activity/Vol] 31 U/L 16-61 [facility] CO2 [Moles/Vol] 26.0 mmol/L 21.0-32.0 [facility] Globulin (S) [Mass/Vol] 3.8 g/dL 2.2-4.2 [facility] Urea nitrogen/Creatinine [Mass ratio] 16.3 mg/mg 10-20 [facility] Laboratory - Hematology and Cell countsOrdered By: Demetrius Fenton on 02-09-2023 Erythrocyte distribution width (RBC) [Entitic vol] 41.9 fL 35.1-43.9 [facility] Erythrocyte distribution width (RBC) [Ratio] 13.2 % 11.6-14.6 [facility] MCH (RBC) [Entitic mass] 30.0 pg 27.0-32.0 [facility] MCHC Auto (RBC) [Mass/Vol]Or dered By: Demetrius Fenton on 02-09-2023 MCHC (RBC) [Mass/Vol] 34.1 g/dL 32-36 [facility] No Panel InformationOrdered By: Demetrius Fenton on 02-09-2023 Estimated GFR (MDRD) Amer 100 mL/min >60 [facility] Comment on above: GFR Calc Estimated GFR (MDRD) Non-Af Amer 83 mL/min >60 [facility] Comment on above: Non- GFR Calc Platelets bldOrdered By: Miriam Fenton on 02-09-2023 Platelets (Bld) [#/Vol] 193 10*3/uL 150-450 [facility] Serum or plasma albumin roseanne urement (mass/volume)Ordered By: Demetrius Fenton on 02-09-2023 Albumin [Mass/Vol] 3.4 g/dL 3.2-5.0 [facility] Serum or plasma albumin/glob ulin mass ratioOrdered By: Demetrius Fenton on 02-09-2023 Albumin/Globulin [Mass ratio] 0.9 {ratio} 0.9-2.4 [facility] Serum or plasma calcium roseanne urement (mass/volume)Ordered By: Demetrius Fenton on 02-09-2023 Calcium [Mass/Vol] 9.2 mg/dL 8.5-10.1 [facility] Serum or plasma creatinine m easurement (mass/volume)Ordered By: Demetrius Fenton on 02-09-2023 Creatinine [Mass/Vol] 0.98 mg/dL 0.70-1.30 [facility] Comment on above: The validity of the calculated GFR & GFRAA in patients over 70 years has not been determined. Clinical correlation is essential. Serum or plasma urea nitroge n measurement (mass/volume)Ordered By: Demetrius Fenton on 02-09-2023 Urea nitrogen [Mass/Vol] 16 mg/dL 7-18 [facility] Thin prep Papanicolaou smear with manual screeningOrdered By: Demetrius Fenton on 02-09-2023 Thin prep Papanicolaou smear with manual screening 20 U/L 15-37 [facility] Thin prep Papanicolaou smear with manual screening 6 5-15 [facility] Basophil percentageOrdered B y: Demetrius Fenton on 01-09-2023 Chloride [Moles/Vol] 104 mmol/L 98-[address] [facility] Glucose [Mass/Vol] 169 mg/dL 74-106 [facility] Comment on above: Fasting Glucose resu lt greater than or equal to 126 mg/dL suggests DIABETES MELLITUS per A.D.A. criteria. Potassium [Moles/Vol] 4.1 mmol/L 3.5-5.1 [facility] Sodium [Moles/Vol] 139 mmol/L 136-145 [facility] WBC (Bld) [#/Vol] 6.8 10*3/uL 4.4-11.0 [facility] Blood erythrocytes count (nu mber/volume)Ordered By: Demetrius Fenton on 01-09-2023 RBC (Bld) [#/Vol] 4.61 10*6/uL 4.6-6.2 [facility] Blood hemoglobin measurement (mass/volume)Ordered By: Demetrius Fenton on 01-09-2023 Hemoglobin (Bld) [Mass/Vol] 13.6 g/dL 13.0-16.5 [facility] Blood platelet mean volumeOr dered By: Demetrius Fenton on 01-09-2023 Platelet mean volume (Bld) [Entitic vol] 11.8 fL 6.2-12.0 [facility] Determination of erythrocyte mean corpuscular volume (MCV)Ordered By: Demetrius Fenton on 01-09-2023 MCV (RBC) [Entitic vol] 90.7 fL 80-94 [facility] Hematocrit Auto (Bld) [Volum e fraction]Ordered By: Demetrius Fenton on 01-09-2023 Hematocrit (Bld) [Volume fraction] 41.8 % 40-54 [facility] Laboratory - Chemistry and C hemistry - challengeOrdered By: Demetrius Fenton on 01-09-2023 CO2 [Moles/Vol] 29.0 mmol/L 21.0-32.0 [facility] Urea nitrogen/Creatinine [Mass ratio] 19.3 mg/mg 10-20 [facility] Laboratory - Hematology and Cell countsOrdered By: Demetrius Fenton on 01-09-2023 Erythrocyte distribution width (RBC) [Entitic vol] 42.6 fL 35.1-43.9 [facility] Erythrocyte distribution width (RBC) [Ratio] 13.2 % 11.6-14.6 [facility] MCH (RBC) [Entitic mass] 29.5 pg 27.0-32.0 [facility] MCHC Auto (RBC) [Mass/Vol]Or dered By: Demetrius Fenton on 01-09-2023 MCHC (RBC) [Mass/Vol] 32.5 g/dL 32-36 [facility] No Panel InformationOrdered By: Demetrius Fenton on 01-09-2023 Estimated GFR (MDRD) Amer 89 mL/min >60 [facility] Comment on above: GFR Calc Estimated GFR (MDRD) Non-Af Amer 73 mL/min >60 [facility] Comment on above: Non- GFR Calc Prostate Specific Antigen Screen 0.59 ng/mL 0.00-4.00 [facility] Comment on above: This test was perfor med using the TPSA assay method for the[employer] chemistry system. Values obtained with differentassay methods cannot be used interchangably.When changing PSA assays in the course of monitoring apatient, additional sequential testing should be carriedout to confirm baseline values. Platelets bldOrdered By: Miriam Fenton on 01-09-2023 Platelets (Bld) [#/Vol] 166 10*3/uL 150-450 [facility] Serum or plasma calcium roseanne urement (mass/volume)Ordered By: Demetrius Fenton on 01-09-2023 Calcium [Mass/Vol] 8.8 mg/dL 8.5-10.1 [facility] Serum or plasma creatinine m easurement (mass/volume)Ordered By: Demetrius Fenton on 01-09-2023 Creatinine [Mass/Vol] 1.09 mg/dL 0.70-1.30 [facility] Comment on above: The validity of the calculated GFR & GFRAA in patients over 70 years has not been determined. Clinical correlation is essential. Serum or plasma urea nitroge n measurement (mass/volume)Ordered By: Demetrius Fenton on 01-09-2023 Urea nitrogen [Mass/Vol] 21 mg/dL 7-18 [facility] Thin prep Papanicolaou smear with manual screeningOrdered By: Demetrius Fenton on 01-09-2023 Thin prep Papanicolaou smear with manual screening 6 5-15 [facility] No Panel InformationOrdered By: Gunnar Cummings on 01-02-2023 Prostate Specific Antigen Screen 0.62 ng/mL 0.00-4.00 [facility] Comment on above: This test was perfor med using the TPSA assay method for the[employer] chemistry system. Values obtained with differentassay methods cannot be used interchangably.When changing PSA assays in the course of monitoring apatient, additional sequential testing should be carriedout to confirm baseline values. Valproic Acid (Depakene) Level 35 ug/mL 50-100 [facility] Bacteria identified Cx Nom ( Wound)Ordered By: Gunnar Cummings on 12-14-2022 Wound Culture Pseudomonas aeruginosa [facility] Wound Culture Proteus mirabilis [facility] Wound Culture Meth. resistant Stap h. aureus [facility] Gram stain for investigation of transfusion reactionOrdered By: Gunnar Cummings on 12-14-2022 Microscopic observation Gram stain Nom (Unsp spec) [facility] Basophil percentageOrdered B y: Demetrius Fenton on 11-28-2022 Chloride [Moles/Vol] 104 mmol/L 98-[address] [facility] Glucose [Mass/Vol] 162 mg/dL 74-106 [facility] Comment on above: Fasting Glucose resu lt greater than or equal to 126 mg/dL suggests DIABETES MELLITUS per A.D.A. criteria. Potassium [Moles/Vol] 4.3 mmol/L 3.5-5.1 [facility] Sodium [Moles/Vol] 136 mmol/L 136-145 [facility] WBC (Bld) [#/Vol] 7.3 10*3/uL 4.4-11.0 [facility] Blood erythrocytes count (nu mber/volume)Ordered By: Demetrius Fenton on 11-28-2022 RBC (Bld) [#/Vol] 4.84 10*6/uL 4.6-6.2 [facility] Blood hemoglobin measurement (mass/volume)Ordered By: Demetrius Fenton on 11-28-2022 Hemoglobin (Bld) [Mass/Vol] 14.2 g/dL 13.0-16.5 [facility] Blood platelet mean volumeOr dered By: Demetrius Fenton on 11-28-2022 Platelet mean volume (Bld) [Entitic vol] 11.6 fL 6.2-12.0 [facility] Determination of erythrocyte mean corpuscular volume (MCV)Ordered By: Demetrius Fenton on 11-28-2022 MCV (RBC) [Entitic vol] 89.7 fL 80-94 [facility] Hematocrit Auto (Bld) [Volum e fraction]Ordered By: Demetrius Fenton on 11-28-2022 Hematocrit (Bld) [Volume fraction] 43.4 % 40-54 [facility] Laboratory - Chemistry and C hemistry - challengeOrdered By: Demetrius Fenton on 11-28-2022 CO2 [Moles/Vol] 25.0 mmol/L 21.0-32.0 [facility] Urea nitrogen/Creatinine [Mass ratio] 20.2 mg/mg 10-20 [facility] Laboratory - Hematology and Cell countsOrdered By: Demetrius Fenton on 11-28-2022 Erythrocyte distribution width (RBC) [Entitic vol] 43.9 fL 35.1-43.9 [facility] Erythrocyte distribution width (RBC) [Ratio] 13.4 % 11.6-14.6 [facility] MCH (RBC) [Entitic mass] 29.3 pg 27.0-32.0 [facility] MCHC Auto (RBC) [Mass/Vol]Or dered By: Demetrius Fenton on 11-28-2022 MCHC (RBC) [Mass/Vol] 32.7 g/dL 32-36 [facility] No Panel InformationOrdered By: Demetrius Fenton on 11-28-2022 Estimated GFR (MDRD) Amer 77 mL/min >60 [facility] Comment on above: GFR Calc Estimated GFR (MDRD) Non-Af Amer 63 mL/min >60 [facility] Comment on above: Non- GFR Calc Platelets bldOrdered By: Miriam Fenton on 11-28-2022 Platelets (Bld) [#/Vol] 172 10*3/uL 150-450 [facility] Serum or plasma calcium roseanne urement (mass/volume)Ordered By: Demetrius Fenton on 11-28-2022 Calcium [Mass/Vol] 9.0 mg/dL 8.5-10.1 [facility] Serum or plasma creatinine m easurement (mass/volume)Ordered By: Demetrius Fenton on 11-28-2022 Creatinine [Mass/Vol] 1.24 mg/dL 0.70-1.30 [facility] Comment on above: The validity of the calculated GFR & GFRAA in patients over 70 years has not been determined. Clinical correlation is essential. Serum or plasma urea nitroge n measurement (mass/volume)Ordered By: Demetrius Fenton on 11-28-2022 Urea nitrogen [Mass/Vol] 25 mg/dL - [facility] Thin prep Papanicolaou smear with manual screeningOrdered By: Demetrius Fenton on 11-28-2022 Thin prep Papanicolaou smear with manual screening 7 - [facility] No Panel InformationOrdered By: Demetrius Fenton on 11-21-2022 Valproic Acid (Depakene) Level 35 ug/mL 50-100 [facility] Basophil percentageOrdered B y: Demetrius Fenton on 10-24-2022 Chloride [Moles/Vol] 104 mmol/L 98-[address] [facility] Glucose [Mass/Vol] 101 mg/dL 74-106 [facility] Comment on above: Fasting Glucose resu lt from 100 to 125 mg/dL suggests IMPAIRED HOMEOSTASIS per A.D.A. criteria. Potassium [Moles/Vol] 4.6 mmol/L 3.5-5.1 [facility] Sodium [Moles/Vol] 137 mmol/L 136-145 [facility] Laboratory - Chemistry and C hemistry - challengeOrdered By: Demetrius Fenton on 10-24-2022 CO2 [Moles/Vol] 29.0 mmol/L 21.0-32.0 [facility] Urea nitrogen/Creatinine [Mass ratio] 17.4 mg/mg 10- [facility] No Panel InformationOrdered By: Demetrius Fenton on 10-24-2022 Estimated GFR (MDRD) Amer 79 mL/min >60 [facility] Comment on above: GFR Calc Estimated GFR (MDRD) Non-Af Amer 65 mL/min >60 [facility] Comment on above: Non- GFR Calc Serum or plasma calcium roseanne urement (mass/volume)Ordered By: Demetrius Fenton on 10-24-2022 Calcium [Mass/Vol] 9.0 mg/dL 8.5-10.1 [facility] Serum or plasma creatinine m easurement (mass/volume)Ordered By: Demetrius Fenton on 10-24-2022 Creatinine [Mass/Vol] 1.21 mg/dL 0.70-1.30 [facility] Comment on above: The validity of the calculated GFR & GFRAA in patients over 70 years has not been determined. Clinical correlation is essential. Serum or plasma urea nitroge n measurement (mass/volume)Ordered By: Demetrius Fenton on 10-24-2022 Urea nitrogen [Mass/Vol] 21 mg/dL 7-18 [facility] Thin prep Papanicolaou smear with manual screeningOrdered By: Demetrius Fenton on 10-24-2022 Thin prep Papanicolaou smear with manual screening 4 5-15 [facility] Basophil percentageOrdered B y: Demetrius Fenton on 09-12-2022 Cholesterol [Mass/Vol] 107 mg/dL <200 [facility] Comment on above: <200 mg/dL Desirable 200-240 mg/dL Borderline >240 mg/dL High Risk Triglyceride [Mass/Vol] 243 mg/dL <199 [facility] Comment on above: The drugs N-Acetylcy steine and Metamizole may falsely depress this assay.Serum Triglycerides Reference Interval Normal <150 mg/dL Borderline high 150 - 199 mg/dL High 200 - 499 mg/dL Very High > or = 500 mg/dL WBC (Bld) [#/Vol] 9.1 10*3/uL 4.4-11.0 [facility] Blood erythrocytes count (nu mber/volume)Ordered By: Demetrius Fenton on 09-12-2022 RBC (Bld) [#/Vol] 4.59 10*6/uL 4.6-6.2 [facility] Blood hemoglobin measurement (mass/volume)Ordered By: Demetrius Fenton on 09-12-2022 Hemoglobin (Bld) [Mass/Vol] 13.7 g/dL 13.0-16.5 [facility] Blood platelet mean volumeOr dered By: Demetrius Fenton on 09-12-2022 Platelet mean volume (Bld) [Entitic vol] 10.6 fL 6.2-12.0 [facility] Determination of erythrocyte mean corpuscular volume (MCV)Ordered By: Demetrius Fenton on 09-12-2022 MCV (RBC) [Entitic vol] 88.9 fL 80-94 [facility] Hematocrit Auto (Bld) [Volum e fraction]Ordered By: Demetrius Fenton on 09-12-2022 Hematocrit (Bld) [Volume fraction] 40.8 % 40-54 [facility] Laboratory - Hematology and Cell countsOrdered By: Demetrius Fenton on 09-12-2022 Erythrocyte distribution width (RBC) [Entitic vol] 43.8 fL 35.1-43.9 [facility] Erythrocyte distribution width (RBC) [Ratio] 14.0 % 11.6-14.6 [facility] MCH (RBC) [Entitic mass] 29.8 pg 27.0-32.0 [facility] MCHC Auto (RBC) [Mass/Vol]Or dered By: Demetrius Fenton on 09-12-2022 MCHC (RBC) [Mass/Vol] 33.6 g/dL 32-36 [facility] No Panel InformationOrdered By: Demetrius Fenton on 09-12-2022 Valproic Acid (Depakene) Level 29 ug/mL 50-100 [facility] Platelets bldOrdered By: Miriam Fenton on 09-12-2022 Platelets (Bld) [#/Vol] 188 10*3/uL 150-450 [facility] Serum or plasma cholesterol in HDL measurement (mass/volume)Ordered By: Demetrius Fenton on 09-12-2022 Cholesterol in HDL [Mass/Vol] 41 mg/dL >40 [facility] Comment on above: The drugs N-Acetylcy steine and Metamizole may falsely depress this assay. Reference Range HDL <40 mg/dL Low HDL Cholesterol HDL >or= 60 mg/dL High HDL Cholesterol Serum or plasma cholesterol in VLDL measurement (mass/volume)Ordered By: Demetrius Fenton on 09-12-2022 Cholesterol in VLDL [Mass/Vol] 49 mg/dL 5-40 [facility] Serum or plasma low density lipoprotein (LDL) cholesterol measurement (mass/volume)Ordered By: Demetrius Fenton on 09-12-2022 Cholesterol in LDL [Mass/Vol] 17 mg/dL 0-130 [facility] Bacteria identified Cx Nom ( Wound)Ordered By: Demetrius Fenton on 09-10-2022 Wound Culture Pseudomonas aeruginosa [facility] Gram stain for investigation of transfusion reactionOrdered By: Demetrius Fenton on 09-08-2022 Microscopic observation Gram stain Nom (Unsp spec) [facility] Bacteria identified Cx Nom ( Wound)Ordered By: Demetrius Fenton on 09-07-2022 Wound Culture Pseudomonas aeruginosa [facility] Gram stain for investigation of transfusion reactionOrdered By: Demetrius Fenton on 09-07-2022 Microscopic observation Gram stain Nom (Unsp spec) [facility] No Panel InformationOrdered By: Demetrius Fenton on 08-22-2022 Valproic Acid (Depakene) Level 40 ug/mL 50-100 [facility] Basophil percentageOrdered B y: Demetrius Fenton on 08-01-2022 Amylase [Catalytic activity/Vol] 50 U/L 25-115 [facility] Bilirubin [Mass/Vol] 0.50 mg/dL 0.20-1.[address] [facility] Comment on above: For patients on eltr ombopag therapy, use of Dimension Danese TBIL is not recommended. Protein [Mass/Vol] 6.4 g/dL 6.4-8.2 [facility] Direct bilirubinOrdered By: Demetrius Fenton on 08-01-2022 Bilirubin.direct [Mass/Vol] 0.14 mg/dL 0.00-0.30 [facility] Laboratory - Chemistry and C hemistry - challengeOrdered By: Demetrius Fenton on 08-01-2022 ALP [Catalytic activity/Vol] 62 U/L 45-117 [facility] ALT [Catalytic activity/Vol] 26 U/L 16-61 [facility] Globulin (S) [Mass/Vol] 3.3 g/dL 2.2-4.2 [facility] Lipase [Catalytic activity/Vol] 45 U/L 13-75 [facility] Comment on above: Please note:LIPASE r evised reference range effective 22. New Lipase methodology. Expected to produce lower values than the previous assay method. NEW Reference Range: 13 - 75 U/L Serum or plasma albumin roseanne urement (mass/volume)Ordered By: Demetrius Fenton on 08-01-2022 Albumin [Mass/Vol] 3.1 g/dL 3.2-5.0 [facility] Thin prep Papanicolaou smear with manual screeningOrdered By: Demetrius Fenton on 08-01-2022 Thin prep Papanicolaou smear with manual screening 18 U/L 15-37 [facility] Basophil percentageOrdered B y: Demetrius Fenton on 07-28-2022 Chloride [Moles/Vol] 107 mmol/L 98-[address] [facility] Glucose [Mass/Vol] 95 mg/dL 74-106 [facility] Potassium [Moles/Vol] 4.4 mmol/L 3.5-5.1 [facility] Comment on above: Slight Hemolysis, Re sult may be falsely increased. Sodium [Moles/Vol] 136 mmol/L 136-145 [facility] WBC (Bld) [#/Vol] 7.2 10*3/uL 4.4-11.0 [facility] Blood erythrocytes count (nu mber/volume)Ordered By: Demetrius Fenton on 07-28-2022 RBC (Bld) [#/Vol] 3.82 10*6/uL 4.6-6.2 [facility] Blood hemoglobin measurement (mass/volume)Ordered By: Demetrius Fenton on 07-28-2022 Hemoglobin (Bld) [Mass/Vol] 11.6 g/dL 13.0-16.5 [facility] Blood platelet mean volumeOr dered By: Demetrius Fenton on 07-28-2022 Platelet mean volume (Bld) [Entitic vol] 11.1 fL 6.2-12.0 [facility] Determination of erythrocyte mean corpuscular volume (MCV)Ordered By: Demetrius Fenton on 07-28-2022 MCV (RBC) [Entitic vol] 93.5 fL 80-94 [facility] Hematocrit Auto (Bld) [Volum e fraction]Ordered By: Demetrius Fenton on 07-28-2022 Hematocrit (Bld) [Volume fraction] 35.7 % 40-54 [facility] Laboratory - Chemistry and C hemistry - challengeOrdered By: Demetrius Fenton on 07-28-2022 CO2 [Moles/Vol] 25.0 mmol/L 21.0-32.0 [facility] Urea nitrogen/Creatinine [Mass ratio] 13.1 mg/mg 01-27 [facility] Laboratory - Hematology and Cell countsOrdered By: Demetrius Fenton on 07-28-2022 Erythrocyte distribution width (RBC) [Entitic vol] 47.2 fL 35.1-43.9 [facility] Erythrocyte distribution width (RBC) [Ratio] 14.1 % 11.6-14.6 [facility] MCH (RBC) [Entitic mass] 30.4 pg 27.0-32.0 [facility] MCHC Auto (RBC) [Mass/Vol]Or dered By: Demetrius Fenton on 07-28-2022 MCHC (RBC) [Mass/Vol] 32.5 g/dL 32-36 [facility] No Panel InformationOrdered By: Demetrius Fenton on 07-28-2022 Estimated GFR (MDRD) Amer 99 mL/min >60 [facility] Comment on above: GFR Calc Estimated GFR (MDRD) Non-Af Amer 82 mL/min >60 [facility] Comment on above: Non- GFR Calc Platelets bldOrdered By: Miriam Fenton on 07-28-2022 Platelets (Bld) [#/Vol] 204 10*3/uL 150-450 [facility] Serum or plasma calcium roseanne urement (mass/volume)Ordered By: Demetrius Fenton on 07-28-2022 Calcium [Mass/Vol] 8.9 mg/dL 8.5-10.1 [facility] Serum or plasma creatinine m easurement (mass/volume)Ordered By: Demetrius Fenton on 07-28-2022 Creatinine [Mass/Vol] 0.99 mg/dL 0.70-1.30 [facility] Comment on above: The validity of the calculated GFR & GFRAA in patients over 70 years has not been determined. Clinical correlation is essential. Serum or plasma urea nitroge n measurement (mass/volume)Ordered By: Demetrius Fenton on 07-28-2022 Urea nitrogen [Mass/Vol] 13 mg/dL 7-18 [facility] Thin prep Papanicolaou smear with manual screeningOrdered By: Demetrius Fenton on 07-28-2022 Thin prep Papanicolaou smear with manual screening 4 5-15 [facility] Culture, urineOrdered By: Travis Finch on 07-21-2022 Bacteria identified Cx Nom (U) Escherichia coli [facility] Bilirubin Test strip Ql (U)O rdered By: Demetrius Fenton on 07-18-2022 Bilirubin Ql (U) Negative Negative [facility] Culture, urineOrdered By: Travis Finch on 07-18-2022 Bacteria identified Cx Nom (U) Escherichia coli [facility] Ketones Test strip Ql (U)Ord ered By: Demetrius Fenton on 07-18-2022 Ketones Ql (U) 15 mg/dl Negative [facility] Nitrite Test strip Ql (U)Ord ered By: Demetrius Fenton on 07-18-2022 Nitrite Ql (U) Positive Negative [facility] No Panel InformationOrdered By: Demetrius Fenton on 07-18-2022 Valproic Acid (Depakene) Level 42 ug/mL 50-100 [facility] Protein Test strip Ql (U)Ord ered By: Demetrius Fentno on 07-18-2022 Protein Ql (U) 100 mg/dl Negative [facility] Urine blood detectionOrdered By: Demetrius Fenton on 07-18-2022 RBC Ql (U) 250 /ul Negative [facility] Urine clarityOrdered By: Miriam Fenton on 07-18-2022 Clarity (U) Turbid Clear [facility] Urine color determinationOrd ered By: Demetrius Fenton on 07-18-2022 Color (U) Brown Yellow [facility] Urine glucose detectionOrder ed By: Demetrius Fenton on 07-18-2022 Glucose Ql (U) Normal mg/dl Normal [facility] Urine leukocyte esterase det ection by dipstickOrdered By: Demetrius Fenton on 07-18-2022 Leukocyte esterase Test strip Ql (U) 500 /ul Negative [facility] Urine pHOrdered By: Demetrius astorga on 07-18-2022 pH (U) 5.0 [pH] 5.0 - 8.0 [facility] Urine specific gravity measu rementOrdered By: Demetrius Fenton on 07-18-2022 Specific gravity (U) [Rel density] 1.020 1.002-1.030 [facility] Urobilinogen Auto test strip Ql (U)Ordered By: Demetrius Fenton on 07-18-2022 Urobilinogen Ql (U) 4 mg/dl Normal [facility] Basophil percentageOrdered B y: Gunnar Cummings on 06-30-2022 Amylase [Catalytic activity/Vol] 62 U/L 25-115 [facility] Bilirubin [Mass/Vol] 0.60 mg/dL 0.20-1.[address] [facility] Comment on above: For patients on eltr ombopag therapy, use of Dimension Danese TBIL is not recommended. Chloride [Moles/Vol] 103 mmol/L 98-[address] [facility] Glucose [Mass/Vol] 120 mg/dL 74-106 [facility] Comment on above: Fasting Glucose resu lt from 100 to 125 mg/dL suggests IMPAIRED HOMEOSTASIS per A.D.A. criteria. Potassium [Moles/Vol] 4.5 mmol/L 3.5-5.1 [facility] Protein [Mass/Vol] 6.2 g/dL 6.4-8.2 [facility] Sodium [Moles/Vol] 139 mmol/L 136-145 [facility] WBC (Bld) [#/Vol] 6.2 10*3/uL 4.4-11.0 [facility] Blood erythrocytes count (nu mber/volume)Ordered By: Gunnar Cummings on 06-30-2022 RBC (Bld) [#/Vol] 3.78 10*6/uL 4.6-6.2 [facility] Blood hemoglobin measurement (mass/volume)Ordered By: Gunnar Cummings on 06-30-2022 Hemoglobin (Bld) [Mass/Vol] 11.7 g/dL 13.0-16.5 [facility] Blood platelet mean volumeOr dered By: Gunnar Cummings on 06-30-2022 Platelet mean volume (Bld) [Entitic vol] 10.6 fL 6.2-12.0 [facility] Determination of erythrocyte mean corpuscular volume (MCV)Ordered By: Gunnar Cummings on 06-30-2022 MCV (RBC) [Entitic vol] 94.2 fL 80-94 [facility] Hematocrit Auto (Bld) [Volum e fraction]Ordered By: Gunnar Cummings on 06-30-2022 Hematocrit (Bld) [Volume fraction] 35.6 % 40-54 [facility] Laboratory - Chemistry and C hemistry - challengeOrdered By: Gunnar Cummings on 06-30-2022 ALP [Catalytic activity/Vol] 77 U/L 45-117 [facility] ALT [Catalytic activity/Vol] 24 U/L 16-61 [facility] CO2 [Moles/Vol] 28.0 mmol/L 21.0-32.0 [facility] Globulin (S) [Mass/Vol] 3.5 g/dL 2.2-4.2 [facility] Lipase [Catalytic activity/Vol] 777 U/L 73-393 [facility] Urea nitrogen/Creatinine [Mass ratio] 15.4 mg/mg 10-20 [facility] Laboratory - Hematology and Cell countsOrdered By: Gunnar Cummings on 06-30-2022 Erythrocyte distribution width (RBC) [Entitic vol] 46.9 fL 35.1-43.9 [facility] Erythrocyte distribution width (RBC) [Ratio] 14.0 % 11.6-14.6 [facility] MCH (RBC) [Entitic mass] 31.0 pg 27.0-32.0 [facility] MCHC Auto (RBC) [Mass/Vol]Or dered By: Gunnar Cummings on 06-30-2022 MCHC (RBC) [Mass/Vol] 32.9 g/dL 32-36 [facility] No Panel InformationOrdered By: Gunnar Cummings on 06-30-2022 Estimated GFR (MDRD) Amer 110 mL/min >60 [facility] Comment on above: GFR Calc Estimated GFR (MDRD) Non-Af Amer 91 mL/min >60 [facility] Comment on above: Non- GFR Calc Platelets bldOrdered By: Ar Cummings on 06-30-2022 Platelets (Bld) [#/Vol] 277 10*3/uL 150-450 [facility] Serum or plasma albumin roseanne urement (mass/volume)Ordered By: Gunnar Cummings on 06-30-2022 Albumin [Mass/Vol] 2.7 g/dL 3.2-5.0 [facility] Serum or plasma albumin/glob ulin mass ratioOrdered By: Gunnar Cummings on 06-30-2022 Albumin/Globulin [Mass ratio] 0.8 {ratio} 0.9-2.4 [facility] Serum or plasma calcium roseanne urement (mass/volume)Ordered By: Gunnar Cummings on 06-30-2022 Calcium [Mass/Vol] 8.9 mg/dL 8.5-10.1 [facility] Serum or plasma creatinine m easurement (mass/volume)Ordered By: Gunnar Cummings on 06-30-2022 Creatinine [Mass/Vol] 0.91 mg/dL 0.70-1.30 [facility] Comment on above: The validity of the calculated GFR & GFRAA in patients over 70 years has not been determined. Clinical correlation is essential. Serum or plasma urea nitroge n measurement (mass/volume)Ordered By: Gunnar Cummings on 06-30-2022 Urea nitrogen [Mass/Vol] 14 mg/dL 7-18 [facility] Thin prep Papanicolaou smear with manual screeningOrdered By: Gunnar Cummings on 06-30-2022 Thin prep Papanicolaou smear with manual screening 15 U/L 15-37 [facility] Thin prep Papanicolaou smear with manual screening 8 5-15 [facility] Cobalamin (Vitamin B12) [Mas s/Vol]on 06-23-2022 Interpretation and review of laboratory results Normal [facility] Comprehensive metabolic 1998 panelon 06-23-2022 Albumin [Mass/Vol] 3.1 g/dL Low 3.5 - 5.0 g/dL [facility] ALP [Catalytic activity/Vol] 80 U/L 38 - 126 U/L [facility] ALT [Catalytic activity/Vol] 29 U/L 0 - 49 U/L [facility] Anion gap [Moles/Vol] 0 mmol/L Low 3 - 13 mmol/L [facility] AST [Catalytic activity/Vol] 37 U/L 15 - 46 U/L [facility] Bilirubin [Mass/Vol] 0.4 mg/dL 0.2 - 1 .3 mg/dL [facility] Calcium [Mass/Vol] 8.3 mg/dL Low 8.4 - 10. 4 mg/dL [facility] Chloride [Moles/Vol] 100 mmol/L 98 - 10 7 mmol/L [facility] CO2 [Moles/Vol] 32 mmol/L High 22 - 30 mmol/L [facility] Creatinine [Mass/Vol] 0.70 mg/dL 0.66 - 1.25 mg/dL [facility] GFR/1.73 sq M.predicted MDRD (S/P/Bld) [Vol rate/Area] - PINF [facility] Glucose [Mass/Vol] 169 mg/dL High 70 - 100 mg/dL [facility] Interpretation and review of laboratory results Abnormal [facility] Potassium [Moles/Vol] 3.6 mmol/L 3.5 - 5.1 mmol/L [facility] Protein [Mass/Vol] 6.1 g/dL Low 6.3 - 8.2 g/dL [facility] Sodium [Moles/Vol] 131 mmol/L Low 135 - 145 mmol/L [facility] Urea nitrogen [Mass/Vol] 17 mg/dL 9 - 20 mg/dL [facility] Ferritin [Mass/Vol]on 2022 Interpretation and review of laboratory results Normal [facility] Iron and Iron binding capaci ty panelon 06-23-2022 Interpretation and review of laboratory results Normal [facility] Iron [Mass/Vol] 83 ug/dL 49 - 181 ug/dL [facility] Iron binding capacity [Mass/Vol] 285 ug/dL 261 - 497 ug/dL [facility] Iron saturation [Mass fraction] 29 % 15 - 50 % [facility] Laboratory - Chemistry and C hemistry - challengeon 06-23-2022 Cobalamin (Vitamin B12) [Mass/Vol] 734 pg/mL 239 - 931 pg/mL [facility] Ferritin [Mass/Vol] 420 ng/mL 18 - 464 ng/mL [facility] Transferrin [Mass/Vol] 232 mg/dL 206 - 381 mg/dL [facility] Glucose [Mass/Vol] 200 mg/dL High 70 - 100 mg/dL [facility] No Panel Informationon 06-23 Interpretation and review of laboratory results Normal [facility] Interpretation and review of laboratory results Abnormal [facility] CBC W Auto Differential pane l (Bld)on 06-22-2022 Erythrocyte distribution width (RBC) [Ratio] 13.9 % 11.5 - 14.5 % [facility] Hematocrit (Bld) [Volume fraction] 34.7 % Low 40.0 - 52.0 % [facility] Hemoglobin (Bld) [Mass/Vol] 12.1 g/dL Low 13.0 - 18.0 g/dL [facility] MCH (RBC) [Entitic mass] 31.1 pg 26.0 - 34.0 pg [facility] MCHC (RBC) [Mass/Vol] 34.8 % 32.0 - 36.0 % [facility] MCV (RBC) [Entitic vol] 89.3 fL 80.0 - 98.0 fL [facility] Nucleated RBC/100 WBC (Bld) [Ratio] 0.2 % [facility] Platelet mean volume (Bld) [Entitic vol] 7.8 fL 7.4 - 12.4 fL [facility] Platelets (Bld) [#/Vol] 377 10*3/uL 140 - 440 10*3/uL [facility] RBC (Bld) [#/Vol] 3.89 10*6/uL Low 4.40 - 5.9 0 10*6/uL [facility] WBC (Bld) [#/Vol] 13.0 10*3/uL High 3.6 - 10.7 10*3/uL [facility] Comprehensive metabolic 1998 panelon 06-22-2022 Albumin [Mass/Vol] 3.0 g/dL Low 3.5 - 5.0 g/dL [facility] ALP [Catalytic activity/Vol] 72 U/L 38 - 126 U/L [facility] ALT [Catalytic activity/Vol] 27 U/L 0 - 49 U/L [facility] Anion gap [Moles/Vol] 1 mmol/L Low 3 - 13 mmol/L [facility] AST [Catalytic activity/Vol] 58 U/L High 15 - 46 U/L [facility] Bilirubin [Mass/Vol] 0.6 mg/dL 0.2 - 1 .3 mg/dL [facility] Calcium [Mass/Vol] 8.0 mg/dL Low 8.4 - 10. 4 mg/dL [facility] Chloride [Moles/Vol] 96 mmol/L Low 98 - 10 7 mmol/L [facility] CO2 [Moles/Vol] 32 mmol/L High 22 - 30 mmol/L [facility] Creatinine [Mass/Vol] 0.66 mg/dL 0.66 - 1.25 mg/dL [facility] GFR/1.73 sq M.predicted MDRD (S/P/Bld) [Vol rate/Area] - PINF [facility] Glucose [Mass/Vol] 204 mg/dL High 70 - 100 mg/dL [facility] Potassium [Moles/Vol] 3.8 mmol/L 3.5 - 5.1 mmol/L [facility] [employer] Protein [Mass/Vol] 6.1 g/dL Low 6.3 - 8.2 g/dL [facility] Sodium [Moles/Vol] 129 mmol/L Low 135 - 145 mmol/L [facility] Urea nitrogen [Mass/Vol] 17 mg/dL 9 - 20 mg/dL [facility] HbA1c (Bld) [Mass fraction]o n 06-22-2022 Glucose [Mass/Vol] 151 mg/dL [facility] HbA1c (Bld) [Mass/Vol] 6.9 % High NINF - 5.7 % [facility] Interpretation and review of laboratory results Abnormal [facility] Laboratory - Chemistry and C hemistry - challengeon 06-22-2022 Lipase [Catalytic activity/Vol] 1218 U/L High 23 - 300 U/L [facility] Magnesium [Mass/Vol] 2.1 mg/dL 1.6 - 2 .3 mg/dL [facility] Magnesium [Mass/Vol]on 06-22 Interpretation and review of laboratory results Normal [facility] [employer] Manual differential performe d Ql (Bld)on 06-22-2022 Band form neutrophils (Bld) [#/Vol] 0.3 10*3/uL High NINF - 0.0 10*3/uL [facility] Band form neutrophils/100 WBC (Bld) 2 % High NINF - 0 % [facility] Bands Manual 2 [facility] Cells Counted Total (Bld) [#] 100 {cells} [facility] Eosinophils (Bld) [#/Vol] 0.8 10*3/uL High 0.0 - 0.5 10*3/uL [facility] Eosinophils Manual 6 High 0 - 1 [facility] Eosinophils/100 WBC (Bld) 6 % 1 - 6 % [facility] Leukocyte morphology finding Nom (Bld) Normal [facility] Lymphocytes (Bld) [#/Vol] 2.3 10*3/uL 1.0 - 4.3 10*3/uL [facility] Lymphocytes Manual 18 [facility] Lymphocytes/100 WBC (Bld) 18 % Low 20 - 40 % [facility] Metamyelocytes (Bld) [#/Vol] 0.1 10*3/uL High NINF - 0.0 10*3/uL [facility] Metamyelocytes Manual 1 [facility] Metamyelocytes/100 WBC (Bld) 1 % High NINF - 0 % [facility] Monocytes (Bld) [#/Vol] 0.4 10*3/uL 0.0 - 0.8 10*3/uL [facility] Monocytes Manual 3 [facility] alth Monocytes/100 WBC (Bld) 3 % 2 - 10 % [facility] Myelocytes (Bld) [#/Vol] 0.7 10*3/uL High NINF - 0.0 10*3/uL [facility] Myelocytes Manual 5 [facility] ealth Myelocytes/100 WBC (Bld) 5 % High NINF - 0 % [facility] Neutrophils (Bld) [#/Vol] 8.7 10*3/uL High 1.8 - 7.0 10*3/uL [facility] Neutrophils Manual 65 [facility] Platelet morphology finding Nom (Bld) Normal [facility] Polychromasia LM Ql (Bld) Slight Abnormal (none) [facility] Segmented neutrophils/100 WBC (Bld) 65 % 40 - 80 % [facility] WBC corrected for nucl RBC (Bld) [#/Vol] 13.00 10*3/uL High 3.60 - 10.70 10*3/uL [facility] No Panel Informationon 06-22 Interpretation and review of laboratory results Abnormal [facility] Interpretation and review of laboratory results Abnormal [facility] Bacteria identified Cx Nom ( Bld)on 06-21-2022 Interpretation and review of laboratory results Normal [facility] CBC W Auto Differential pane l (Bld)on 06-21-2022 Erythrocyte distribution width (RBC) [Ratio] 13.8 % 11.5 - 14.5 % [facility] Hematocrit (Bld) [Volume fraction] 36.1 % Low 40.0 - 52.0 % [facility] Hemoglobin (Bld) [Mass/Vol] 12.4 g/dL Low 13.0 - 18.0 g/dL [facility] MCH (RBC) [Entitic mass] 30.9 pg 26.0 - 34.0 pg [facility] MCHC (RBC) [Mass/Vol] 34.4 % 32.0 - 36.0 % [facility] MCV (RBC) [Entitic vol] 89.8 fL 80.0 - 98.0 fL [facility] Nucleated RBC/100 WBC (Bld) [Ratio] 0.1 % [facility] Platelet mean volume (Bld) [Entitic vol] 8.2 fL 7.4 - 12.4 fL [facility] Platelets (Bld) [#/Vol] 401 10*3/uL 140 - 440 10*3/uL [facility] RBC (Bld) [#/Vol] 4.02 10*6/uL Low 4.40 - 5.9 0 10*6/uL [facility] WBC (Bld) [#/Vol] 16.2 10*3/uL High 3.6 - 10.7 10*3/uL [facility] Comprehensive metabolic 1998 panelon 06-21-2022 Albumin [Mass/Vol] 3.2 g/dL Low 3.5 - 5.0 g/dL [facility] ALP [Catalytic activity/Vol] 78 U/L 38 - 126 U/L [facility] ALT [Catalytic activity/Vol] 30 U/L 0 - 49 U/L [facility] Anion gap [Moles/Vol] 0 mmol/L Low 3 - 13 mmol/L [facility] AST [Catalytic activity/Vol] 56 U/L High 15 - 46 U/L [facility] Bilirubin [Mass/Vol] 0.7 mg/dL 0.2 - 1 .3 mg/dL [facility] Calcium [Mass/Vol] 8.0 mg/dL Low 8.4 - 10. 4 mg/dL [facility] Chloride [Moles/Vol] 93 mmol/L Low 98 - 10 7 mmol/L [facility] CO2 [Moles/Vol] 33 mmol/L High 22 - 30 mmol/L [facility] Creatinine [Mass/Vol] 0.74 mg/dL 0.66 - 1.25 mg/dL [facility] GFR/1.73 sq M.predicted MDRD (S/P/Bld) [Vol rate/Area] - PINF [facility] Glucose [Mass/Vol] 252 mg/dL High 70 - 100 mg/dL [facility] Potassium [Moles/Vol] 4.0 mmol/L 3.5 - 5.1 mmol/L [facility] Protein [Mass/Vol] 6.5 g/dL 6.3 - 8.2 g/dL [facility] Sodium [Moles/Vol] 126 mmol/L Low 135 - 145 mmol/L [facility] Urea nitrogen [Mass/Vol] 19 mg/dL 9 - 20 mg/dL [facility] Laboratory - Chemistry and C hemistry - challengeon 06-21-2022 Lipase [Catalytic activity/Vol] 1352 U/L High 23 - 300 U/L [facility] Magnesium [Mass/Vol] 2.0 mg/dL 1.6 - 2 .3 mg/dL [facility] Laboratory - Microbiology an d Antimicrobial susceptibilityon 06-21-2022 Bacteria identified Cx Nom (Bld) No growth at 5 days [facility] Magnesium [Mass/Vol]on 06-21 Interpretation and review of laboratory results Normal [facility] Manual differential performe d Ql (Bld)on 06-21-2022 Cells Counted Total (Bld) [#] 100 {cells} [facility] Eosinophils (Bld) [#/Vol] 0.3 10*3/uL 0.0 - 0.5 10*3/uL [facility] Eosinophils Manual 2 High 0 - 1 [facility] Eosinophils/100 WBC (Bld) 2 % 1 - 6 % [facility] Lymphocytes (Bld) [#/Vol] 3.2 10*3/uL 1.0 - 4.3 10*3/uL [facility] Lymphocytes Manual 20 [facility] Lymphocytes/100 WBC (Bld) 20 % 20 - 40 % [facility] Metamyelocytes (Bld) [#/Vol] 0.5 10*3/uL High NINF - 0.0 10*3/uL [facility] Metamyelocytes Manual 3 [facility] Metamyelocytes/100 WBC (Bld) 3 % High NINF - 0 % [facility] Monocytes (Bld) [#/Vol] 0.5 10*3/uL 0.0 - 0.8 10*3/uL [facility] Monocytes Manual 3 [facility] alth Monocytes/100 WBC (Bld) 3 % 2 - 10 % [facility] Myelocytes (Bld) [#/Vol] 0.3 10*3/uL High NINF - 0.0 10*3/uL [facility] Myelocytes Manual 2 [facility] ealth Myelocytes/100 WBC (Bld) 2 % High NINF - 0 % [facility] Neutrophils (Bld) [#/Vol] 11.3 10*3/uL High 1.8 - 7.0 10*3/uL [facility] Neutrophils Manual 70 [facility] Neutrophils.vacuolated LM Ql (Bld) Present Abnormal (none) [facility] Platelet morphology finding Nom (Bld) Normal [facility] RBC morphology finding Nom (Bld) Normal [facility] Segmented neutrophils/100 WBC (Bld) 70 % 40 - 80 % [facility] WBC corrected for nucl RBC (Bld) [#/Vol] 16.20 10*3/uL High 3.60 - 10.70 10*3/uL [facility] No Panel Informationon 06-21 Interpretation and review of laboratory results Abnormal [facility] Interpretation and review of laboratory results Abnormal [facility] CBC W Auto Differential pane l (Bld)on 06-20-2022 Basophils (Bld) [#/Vol] 0.2 10*3/uL 0.0 - 0.2 10*3/uL [facility] Basophils/100 WBC (Bld) 0.9 % 0.0 - 2.0 % [facility] Eosinophils (Bld) [#/Vol] 0.6 10*3/uL High 0.0 - 0.5 10*3/uL [facility] Eosinophils/100 WBC (Bld) 3.1 % 1.0 - 6.0 % [facility] Erythrocyte distribution width (RBC) [Ratio] 13.7 % 11.5 - 14.5 % [facility] Hematocrit (Bld) [Volume fraction] 38.9 % Low 40.0 - 52.0 % [facility] Hemoglobin (Bld) [Mass/Vol] 13.2 g/dL 13.0 - 18.0 g/dL [facility] Interpretation and review of laboratory results Abnormal [facility] Lymphocytes (Bld) [#/Vol] 3.2 10*3/uL 1.0 - 4.3 10*3/uL [facility] Lymphocytes/100 WBC (Bld) 17.9 % Low 20.0 - 40.0 % [facility] MCH (RBC) [Entitic mass] 30.5 pg 26.0 - 34.0 pg [facility] MCHC (RBC) [Mass/Vol] 33.9 % 32.0 - 36.0 % [facility] MCV (RBC) [Entitic vol] 90.0 fL 80.0 - 98.0 fL [facility] Monocytes (Bld) [#/Vol] 1.1 10*3/uL High 0.0 - 0.8 10*3/uL [facility] Monocytes/100 WBC (Bld) 6.1 % 2.0 - 10.0 % [facility] Neutrophils (Bld) [#/Vol] 12.8 10*3/uL High 1.8 - 7.0 10*3/uL [facility] Neutrophils/100 WBC (Bld) 72.0 % 40.0 - 80.0 % [facility] Nucleated RBC/100 WBC (Bld) [Ratio] 0.0 % [facility] Platelet mean volume (Bld) [Entitic vol] 7.9 fL 7.4 - 12.4 fL [facility] Platelets (Bld) [#/Vol] 389 10*3/uL 140 - 440 10*3/uL [facility] RBC (Bld) [#/Vol] 4.33 10*6/uL Low 4.40 - 5.9 0 10*6/uL [facility] WBC (Bld) [#/Vol] 17.8 10*3/uL High 3.6 - 10.7 10*3/uL [facility] Comprehensive metabolic 1998 panelon 06-20-2022 Albumin [Mass/Vol] 3.3 g/dL Low 3.5 - 5.0 g/dL [facility] ALP [Catalytic activity/Vol] 97 U/L 38 - 126 U/L [facility] ALT [Catalytic activity/Vol] 37 U/L 0 - 49 U/L [facility] Anion gap [Moles/Vol] 3 mmol/L 3 - 13 mmol/L [facility] AST [Catalytic activity/Vol] 43 U/L 15 - 46 U/L [facility] Bilirubin [Mass/Vol] 0.6 mg/dL 0.2 - 1 .3 mg/dL [facility] Calcium [Mass/Vol] 8.2 mg/dL Low 8.4 - 10. 4 mg/dL [facility] Chloride [Moles/Vol] 90 mmol/L Low 98 - 10 7 mmol/L [facility] CO2 [Moles/Vol] 33 mmol/L High 22 - 30 mmol/L [facility] Creatinine [Mass/Vol] 0.81 mg/dL 0.66 - 1.25 mg/dL [facility] GFR/1.73 sq M.predicted MDRD (S/P/Bld) [Vol rate/Area] - PINF [facility] Glucose [Mass/Vol] 241 mg/dL High 70 - 100 mg/dL [facility] Potassium [Moles/Vol] 3.8 mmol/L 3.5 - 5.1 mmol/L [facility] Protein [Mass/Vol] 6.7 g/dL 6.3 - 8.2 g/dL [facility] Sodium [Moles/Vol] 126 mmol/L Low 135 - 145 mmol/L [facility] Urea nitrogen [Mass/Vol] 22 mg/dL High 9 - 20 mg/dL [facility] Laboratory - Chemistry and C hemistry - challengeon 06-20-2022 Lipase [Catalytic activity/Vol] 1528 U/L High 23 - 300 U/L [facility] Magnesium [Mass/Vol] 2.2 mg/dL 1.6 - 2 .3 mg/dL [facility] Magnesium [Mass/Vol]on 06-20 Interpretation and review of laboratory results Normal [facility] No Panel Informationon 06-20 Interpretation and review of laboratory results Abnormal [facility] CBC W Auto Differential pane l (Bld)on 06-19-2022 Erythrocyte distribution width (RBC) [Ratio] 13.9 % 11.5 - 14.5 % [facility] Hematocrit (Bld) [Volume fraction] 38.2 % Low 40.0 - 52.0 % [facility] Hemoglobin (Bld) [Mass/Vol] 13.0 g/dL 13.0 - 18.0 g/dL [facility] MCH (RBC) [Entitic mass] 30.4 pg 26.0 - 34.0 pg [facility] MCHC (RBC) [Mass/Vol] 34.0 % 32.0 - 36.0 % [facility] MCV (RBC) [Entitic vol] 89.6 fL 80.0 - 98.0 fL [facility] Nucleated RBC/100 WBC (Bld) [Ratio] 0.1 % [facility] Platelet mean volume (Bld) [Entitic vol] 8.1 fL 7.4 - 12.4 fL [facility] Platelets (Bld) [#/Vol] 325 10*3/uL 140 - 440 10*3/uL [facility] RBC (Bld) [#/Vol] 4.26 10*6/uL Low 4.40 - 5.9 0 10*6/uL [facility] WBC (Bld) [#/Vol] 19.0 10*3/uL High 3.6 - 10.7 10*3/uL [facility] Comprehensive metabolic 1998 panelon 06-19-2022 Albumin [Mass/Vol] 3.2 g/dL Low 3.5 - 5.0 g/dL [facility] ALP [Catalytic activity/Vol] 100 U/L 38 - 126 U/L [facility] ALT [Catalytic activity/Vol] 36 U/L 0 - 49 U/L [facility] Anion gap [Moles/Vol] 1 mmol/L Low 3 - 13 mmol/L [facility] AST [Catalytic activity/Vol] 43 U/L 15 - 46 U/L [facility] Bilirubin [Mass/Vol] 0.6 mg/dL 0.2 - 1 .3 mg/dL [facility] Calcium [Mass/Vol] 7.9 mg/dL Low 8.4 - 10. 4 mg/dL [facility] Chloride [Moles/Vol] 90 mmol/L Low 98 - 10 7 mmol/L [facility] CO2 [Moles/Vol] 34 mmol/L High 22 - 30 mmol/L [facility] Creatinine [Mass/Vol] 0.85 mg/dL 0.66 - 1.25 mg/dL [facility] GFR/1.73 sq M.predicted MDRD (S/P/Bld) [Vol rate/Area] - PINF [facility] Glucose [Mass/Vol] 250 mg/dL High 70 - 100 mg/dL [facility] Potassium [Moles/Vol] 3.9 mmol/L 3.5 - 5.1 mmol/L [facility] Protein [Mass/Vol] 6.6 g/dL 6.3 - 8.2 g/dL [facility] Sodium [Moles/Vol] 126 mmol/L Low 135 - 145 mmol/L [facility] Urea nitrogen [Mass/Vol] 24 mg/dL High 9 - 20 mg/dL [facility] Laboratory - Chemistry and C hemistry - challengeon 06-19-2022 Lipase [Catalytic activity/Vol] 1500 U/L High 23 - 300 U/L [facility] Magnesium [Mass/Vol] 2.2 mg/dL 1.6 - 2 .3 mg/dL [facility] Magnesium [Mass/Vol]on 06-19 Interpretation and review of laboratory results Normal [facility] Manual differential performe d Ql (Bld)on 06-19-2022 Band form neutrophils (Bld) [#/Vol] 0.2 10*3/uL High NINF - 0.0 10*3/uL [facility] Band form neutrophils/100 WBC (Bld) 1 % High NINF - 0 % [facility] Bands Manual 1 [facility] Cells Counted Total (Bld) [#] 100 {cells} [facility] Eosinophils (Bld) [#/Vol] 1.1 10*3/uL High 0.0 - 0.5 10*3/uL [facility] Eosinophils Manual 6 High 0 - 1 [facility] Eosinophils/100 WBC (Bld) 6 % 1 - 6 % [facility] Leukocyte morphology finding Nom (Bld) Normal [facility] Lymphocytes (Bld) [#/Vol] 2.1 10*3/uL 1.0 - 4.3 10*3/uL [facility] Lymphocytes Manual 11 [facility] Lymphocytes/100 WBC (Bld) 11 % Low 20 - 40 % [facility] Monocytes (Bld) [#/Vol] 0.6 10*3/uL 0.0 - 0.8 10*3/uL [facility] Monocytes Manual 3 [facility] alth Monocytes/100 WBC (Bld) 3 % 2 - 10 % [facility] Myelocytes (Bld) [#/Vol] 0.6 10*3/uL High NINF - 0.0 10*3/uL [facility] Myelocytes Manual 3 [facility]alth Myelocytes/100 WBC (Bld) 3 % High NINF - 0 % [facility] Neutrophils (Bld) [#/Vol] 14.6 10*3/uL High 1.8 - 7.0 10*3/uL [facility] Neutrophils Manual 76 [facility] Platelet morphology finding Nom (Bld) Normal [facility] Polychromasia LM Ql (Bld) Slight Abnormal (none) [facility] Segmented neutrophils/100 WBC (Bld) 76 % 40 - 80 % [facility] WBC corrected for nucl RBC (Bld) [#/Vol] 19.00 10*3/uL High 3.60 - 10.70 10*3/uL [facility] No Panel Informationon 06-19 Interpretation and review of laboratory results Abnormal [facility] Interpretation and review of laboratory results Abnormal [facility] XR Chest Single viewon 06-19 [facility] Radiology Study observation (narrative) [facility] CBC W Auto Differential pane l (Bld)on 06-18-2022 Erythrocyte distribution width (RBC) [Ratio] 13.6 % 11.5 - 14.5 % [facility] Hematocrit (Bld) [Volume fraction] 39.5 % Low 40.0 - 52.0 % [facility] Hemoglobin (Bld) [Mass/Vol] 13.3 g/dL 13.0 - 18.0 g/dL [facility] MCH (RBC) [Entitic mass] 30.3 pg 26.0 - 34.0 pg [facility] MCHC (RBC) [Mass/Vol] 33.6 % 32.0 - 36.0 % [facility] MCV (RBC) [Entitic vol] 90.0 fL 80.0 - 98.0 fL [facility] Nucleated RBC/100 WBC (Bld) [Ratio] 0.2 % [facility] Platelet mean volume (Bld) [Entitic vol] 8.1 fL 7.4 - 12.4 fL [facility] Platelets (Bld) [#/Vol] 304 10*3/uL 140 - 440 10*3/uL [facility] RBC (Bld) [#/Vol] 4.39 10*6/uL Low 4.40 - 5.9 0 10*6/uL [facility] WBC (Bld) [#/Vol] 20.7 10*3/uL High 3.6 - 10.7 10*3/uL [facility] Comprehensive metabolic 1998 panelon 06-18-2022 Albumin [Mass/Vol] 3.3 g/dL Low 3.5 - 5.0 g/dL [facility] ALP [Catalytic activity/Vol] 118 U/L 38 - 126 U/L [facility] ALT [Catalytic activity/Vol] 28 U/L 0 - 49 U/L [facility] Anion gap [Moles/Vol] 2 mmol/L Low 3 - 13 mmol/L [facility] AST [Catalytic activity/Vol] 40 U/L 15 - 46 U/L [facility] Bilirubin [Mass/Vol] 0.7 mg/dL 0.2 - 1 .3 mg/dL [facility] Calcium [Mass/Vol] 8.3 mg/dL Low 8.4 - 10. 4 mg/dL [facility] Chloride [Moles/Vol] 93 mmol/L Low 98 - 10 7 mmol/L [facility] CO2 [Moles/Vol] 35 mmol/L High 22 - 30 mmol/L [facility] Creatinine [Mass/Vol] 0.88 mg/dL 0.66 - 1.25 mg/dL [facility] GFR/1.73 sq M.predicted MDRD (S/P/Bld) [Vol rate/Area] - PINF [facility] Glucose [Mass/Vol] 195 mg/dL High 70 - 100 mg/dL [facility] Potassium [Moles/Vol] 3.8 mmol/L 3.5 - 5.1 mmol/L [facility] Protein [Mass/Vol] 6.9 g/dL 6.3 - 8.2 g/dL [facility] Sodium [Moles/Vol] 129 mmol/L Low 135 - 145 mmol/L [facility] Urea nitrogen [Mass/Vol] 22 mg/dL High 9 - 20 mg/dL [facility] Laboratory - Chemistry and C hemistry - challengeon 06-18-2022 Lipase [Catalytic activity/Vol] 1360 U/L High 23 - 300 U/L [facility] Magnesium [Mass/Vol] 2.2 mg/dL 1.6 - 2 .3 mg/dL [facility] Magnesium [Mass/Vol]on 06-18 Interpretation and review of laboratory results Normal [facility] Manual differential performe d Ql (Bld)on [...] 0.0 10*3/uL [facility] Metamyelocytes Manual 2 [facility] Metamyelocytes/100 WBC (Bld) 2 % High NINF - 0 % [facility] Monocytes (Bld) [#/Vol] 0.8 10*3/uL 0.0 - 0.8 10*3/uL [facility] Monocytes Manual 4 [facility] Monocytes/100 WBC (Bld) 4 % 2 - 10 % [facility] Myelocytes (Bld) [#/Vol] 0.4 10*3/uL High [...] 20.70 10*3/uL High 3.60 - 10.70 10*3/uL [facility] No Panel Informationon 06-18 Interpretation and review of laboratory results Abnormal [facility] Interpretation and review of laboratory results Abnormal [facility] SARS-CoV-2 (COVID-19) RNA pa sol FAN+probe (Resp)on 06-18-2022 Interpretation and review of laboratory results Normal [facility] SARS-CoV-2 (COVID-19) RNA FAN+probe Ql (Resp) Not detected Not Detected [facility] XR Chest Single viewon 06-18 [facility] Radiology Study observation (narrative) [facility] XR Chest Single viewOrdered By: Brady Douglas on 06-18-2022 [facility] Work Phone: Bacteria identified Aer cx N om (Lower resp)Ordered By: Latoya Diaz on 06-17-2022 Gram Stain Result Moderate Polymorphonuclear leukocytes per low power field Abnormal [facility] Gram Stain Result Moderate Epithelial cells per low power field Abnormal [facility] Gram Stain Result Positive Abnormal [facility] Gram Stain Result Negative Abnormal [facility] Interpretation and review of laboratory results Abnormal [facility] CBC W Auto Differential pane l (Bld)on 06-17-2022 Erythrocyte distribution width (RBC) [Ratio] 13.9 % 11.5 - 14.5 % [facility] Hematocrit (Bld) [Volume fraction] 37.7 % Low 40.0 - 52.0 % [facility] Hemoglobin (Bld) [Mass/Vol] 12.6 g/dL Low 13.0 - 18.0 g/dL [facility] MCH (RBC) [Entitic mass] 30.2 pg 26.0 - 34.0 pg [facility] MCHC (RBC) [Mass/Vol] 33.5 % 32.0 - 36.0 % [facility] MCV (RBC) [Entitic vol] 90.0 fL 80.0 - 98.0 fL [facility] Nucleated RBC/100 WBC (Bld) [Ratio] 0.1 % [facility] Platelet mean volume (Bld) [Entitic vol] 8.0 fL 7.4 - 12.4 fL [facility] Platelets (Bld) [#/Vol] 264 10*3/uL 140 - 440 10*3/uL [facility] RBC (Bld) [#/Vol] 4.18 10*6/uL Low 4.40 - 5.9 0 10*6/uL [facility] WBC (Bld) [#/Vol] 19.8 10*3/uL High 3.6 - 10.7 10*3/uL [facility] Comprehensive metabolic 1998 panelon 06-17-2022 Albumin [Mass/Vol] 3.1 g/dL Low 3.5 - 5.0 g/dL [facility] ALP [Catalytic activity/Vol] 117 U/L 38 - 126 U/L [facility] ALT [Catalytic activity/Vol] 23 U/L 0 - 49 U/L [facility] Anion gap [Moles/Vol] 2 mmol/L Low 3 - 13 mmol/L [facility] AST [Catalytic activity/Vol] 35 U/L 15 - 46 U/L [facility] Bilirubin [Mass/Vol] 0.6 mg/dL 0.2 - 1 .3 mg/dL [facility] Calcium [Mass/Vol] 8.0 mg/dL Low 8.4 - 10. 4 mg/dL [facility] Chloride [Moles/Vol] 95 mmol/L Low 98 - 10 7 mmol/L [facility] CO2 [Moles/Vol] 33 mmol/L High 22 - 30 mmol/L [facility] Creatinine [Mass/Vol] 0.82 mg/dL 0.66 - 1.25 mg/dL [facility] GFR/1.73 sq M.predicted MDRD (S/P/Bld) [Vol rate/Area] - PINF [facility] Glucose [Mass/Vol] 181 mg/dL High 70 - 100 mg/dL [facility] Potassium [Moles/Vol] 3.7 mmol/L 3.5 - 5.1 mmol/L [facility] Protein [Mass/Vol] 6.5 g/dL 6.3 - 8.2 g/dL [facility] Sodium [Moles/Vol] 130 mmol/L Low 135 - 145 mmol/L [facility] Urea nitrogen [Mass/Vol] 19 mg/dL 9 - 20 mg/dL [facility] Laboratory - Chemistry and C hemistry - challengeon 06-17-2022 Lipase [Catalytic activity/Vol] 1078 U/L High 23 - 300 U/L [facility] Magnesium [Mass/Vol] 2.2 mg/dL 1.6 - 2 .3 mg/dL [facility] Laboratory - Microbiology an d Antimicrobial susceptibilityOrdered By: Latoya Diaz on 06-17-2022 Bacteria identified Aer cx Nom (Lower resp) Few respiratory vikram present. [facility] Magnesium [Mass/Vol]on 06-17 Interpretation and review of laboratory results Normal [facility] Manual differential performe d Ql (Bld)on 06-17-2022 Band form neutrophils (Bld) [#/Vol] 0.2 10*3/uL High NINF - 0.0 10*3/uL [facility] Band form neutrophils/100 WBC (Bld) 1 % High NINF - 0 % [facility] Bands Manual 1 [facility] Cells Counted Total (Bld) [#] 100 {cells} [facility] Eosinophils (Bld) [#/Vol] 0.2 10*3/uL 0.0 - 0.5 10*3/uL [facility] Eosinophils Manual 1 0 - 1 [facility] Eosinophils/100 WBC (Bld) 1 % 1 - 6 % [facility] Leukocyte morphology finding Nom (Bld) Normal [facility] Lymphocytes (Bld) [#/Vol] 1.0 10*3/uL 1.0 - 4.3 10*3/uL [facility] Lymphocytes Manual 5 [facility] Lymphocytes/100 WBC (Bld) 5 % Low 20 - 40 % [facility] Metamyelocytes (Bld) [#/Vol] 0.6 10*3/uL High NINF - 0.0 10*3/uL [facility] Metamyelocytes Manual 3 [facility] Metamyelocytes/100 WBC (Bld) 3 % High NINF - 0 % [facility] Monocytes (Bld) [#/Vol] 1.4 10*3/uL High 0.0 - 0.8 10*3/uL [facility] Monocytes Manual 7 [facility] alth Monocytes/100 WBC (Bld) 7 % 2 - 10 % [facility] Myelocytes (Bld) [#/Vol] 0.4 10*3/uL High NINF - 0.0 10*3/uL [facility] Myelocytes Manual 2 [facility] ealth Myelocytes/100 WBC (Bld) 2 % High NINF - 0 % [facility] Neutrophils (Bld) [#/Vol] 16.2 10*3/uL High 1.8 - 7.0 10*3/uL [facility] Neutrophils Manual 81 [facility] Ovalocytes LM Ql (Bld) Slight Abnormal (none) [facility] Platelet morphology finding Nom (Bld) Normal [facility] Polychromasia LM Ql (Bld) Slight Abnormal (none) [facility] Segmented neutrophils/100 WBC (Bld) 81 % High 40 - 80 % [facility] Stomatocytes LM Ql (Bld) Slight Abnormal (none) [facility] WBC corrected for nucl RBC (Bld) [#/Vol] 19.80 10*3/uL High 3.60 - 10.70 10*3/uL [facility] No Panel Informationon 06-17 Interpretation and review of laboratory results Abnormal [facility] Interpretation and review of laboratory results Abnormal [facility] RF videography Hypopharynx a nd Esophagus Views for swallowing function W speech and W barium contrast Jerry 06-17-2022 [facility] Radiology Study observation (narrative) [facility] RF videography Hypopharynx a nd Esophagus Views for swallowing function W speech and W barium contrast POOrdered By: Juve Odonnell on 06-17-2022 [facility] Work Phone: XR Chest Single viewon 06-17 [facility] Radiology Study observation (narrative) [facility] CBC W Auto Differential pane l (Bld)on 06-16-2022 Erythrocyte distribution width (RBC) [Ratio] 13.6 % 11.5 - 14.5 % [facility] Hematocrit (Bld) [Volume fraction] 37.8 % Low 40.0 - 52.0 % [facility] Hemoglobin (Bld) [Mass/Vol] 12.6 g/dL Low 13.0 - 18.0 g/dL [facility] MCH (RBC) [Entitic mass] 30.6 pg 26.0 - 34.0 pg [facility] MCHC (RBC) [Mass/Vol] 33.3 % 32.0 - 36.0 % [facility] MCV (RBC) [Entitic vol] 92.0 fL 80.0 - 98.0 fL [facility] Nucleated RBC/100 WBC (Bld) [Ratio] 0.1 % [facility] Platelet mean volume (Bld) [Entitic vol] 7.9 fL 7.4 - 12.4 fL [facility] Platelets (Bld) [#/Vol] 229 10*3/uL 140 - 440 10*3/uL [facility] RBC (Bld) [#/Vol] 4.11 10*6/uL Low 4.40 - 5.9 0 10*6/uL [facility] WBC (Bld) [#/Vol] 19.9 10*3/uL High 3.6 - 10.7 10*3/uL [facility] Comprehensive metabolic 1998 panelon 06-16-2022 Albumin [Mass/Vol] 3.1 g/dL Low 3.5 - 5.0 g/dL [facility] ALP [Catalytic activity/Vol] 114 U/L 38 - 126 U/L [facility] ALT [Catalytic activity/Vol] 25 U/L 0 - 49 U/L [facility] Anion gap [Moles/Vol] 5 mmol/L 3 - 13 mmol/L [facility] AST [Catalytic activity/Vol] 36 U/L 15 - 46 U/L [facility] Bilirubin [Mass/Vol] 0.7 mg/dL 0.2 - 1 .3 mg/dL [facility] Calcium [Mass/Vol] 8.1 mg/dL Low 8.4 - 10. 4 mg/dL [facility] Chloride [Moles/Vol] 95 mmol/L Low 98 - 10 7 mmol/L [facility] CO2 [Moles/Vol] 32 mmol/L High 22 - 30 mmol/L [facility] Creatinine [Mass/Vol] 0.80 mg/dL 0.66 - 1.25 mg/dL [facility] GFR/1.73 sq M.predicted MDRD (S/P/Bld) [Vol rate/Area] - PINF [facility] Glucose [Mass/Vol] 173 mg/dL High 70 - 100 mg/dL [facility] Potassium [Moles/Vol] 4.0 mmol/L 3.5 - 5.1 mmol/L [facility] Protein [Mass/Vol] 6.2 g/dL Low 6.3 - 8.2 g/dL [facility] Sodium [Moles/Vol] 132 mmol/L Low 135 - 145 mmol/L [facility] Urea nitrogen [Mass/Vol] 16 mg/dL 9 - 20 mg/dL [facility] Laboratory - Chemistry and C hemistry - challengeon 06-16-2022 Glucose [Mass/Vol] 251 mg/dL High 70 - 100 mg/dL [facility] Ammonia (P) [Moles/Vol] 13 umol/L 9 - 30 umol/L [facility] Glucose [Mass/Vol] 175 mg/dL High 70 - 100 mg/dL [facility] Base excess Calc (Bld) [Moles/Vol] 5.0 mmol/L High -3.0 - 3.0 mmol/L [facility] CO2 (Bld) [Partial pressure] 42.3 mm[Hg] [facility] CO2 [Moles/Vol] 30.8 mmol/L High 23.0 - 27.0 mmol/L [facility] HCO3 (Bld) [Moles/Vol] 29.5 mmol/L High 21.0 - 25.0 mmol/L [facility] Oxygen (Bld) [Partial pressure] 67.7 mm[Hg] Low [facility] pH (Bld) 7.452 [pH] High 7.350 - 7.450 pH [facility] Procalcitonin [Mass/Vol] 0.46 ng/mL High 0.00 - 0.09 ng/mL [facility] Lipase [Catalytic activity/Vol] 718 U/L High 23 - 300 U/L [facility] Magnesium [Mass/Vol] 2.2 mg/dL 1.6 - 2 .3 mg/dL [facility] Laboratory - Drug toxicology on 06-16-2022 Vancomycin [Mass/Vol] 14.3 ug/mL Low 15.0 - 20.0 ug/mL [facility] Magnesium [Mass/Vol]on 06-16 Interpretation and review of laboratory results Normal [facility] Manual differential performe d Ql (Bld)on 06-16-2022 Basophilic stippling LM Ql (Bld) Rare Abnormal (none) [facility] Cells Counted Total (Bld) [#] 100 {cells} [facility] Eosinophils (Bld) [#/Vol] 0.8 10*3/uL High 0.0 - 0.5 10*3/uL [facility] Eosinophils Manual 4 High 0 - 1 [facility] Eosinophils/100 WBC (Bld) 4 % 1 - 6 % [facility] Giant platelets LM Ql (Bld) Slight Abnormal (none) [facility] Lymphocytes (Bld) [#/Vol] 0.6 10*3/uL Low 1.0 - 4.3 10*3/uL [facility] Lymphocytes Manual 3 [facility] Lymphocytes/100 WBC (Bld) 3 % Low 20 - 40 % [facility] Monocytes (Bld) [#/Vol] 1.0 10*3/uL High 0.0 - 0.8 10*3/uL [facility] Monocytes Manual 5 [facility] alth Monocytes/100 WBC (Bld) 5 % 2 - 10 % [facility] Neutrophils (Bld) [#/Vol] 17.5 10*3/uL High 1.8 - 7.0 10*3/uL [facility] Neutrophils Manual 88 [facility] Neutrophils.hypersegmen chhaya LM Ql (Bld) Present Abnormal (none) [facility] Nucleated RBC/100 WBC (Bld) [Ratio] 1 % [facility] Ovalocytes LM Ql (Bld) Slight Abnormal (none) [facility] Polychromasia LM Ql (Bld) Slight Abnormal (none) [facility] Segmented neutrophils/100 WBC (Bld) 88 % High 40 - 80 % [facility] Stomatocytes LM Ql (Bld) Slight Abnormal (none) [facility] Toxic granules LM Ql (Bld) Present Abnormal (none) [facility] WBC corrected for nucl RBC (Bld) [#/Vol] 19.90 10*3/uL High 3.60 - 10.70 10*3/uL [facility] No Panel Informationon 06-16 Interpretation and review of laboratory results Abnormal [facility] Interpretation and review of laboratory results Abnormal [facility] Interpretation and review of laboratory results Normal [facility] Interpretation and review of laboratory results Abnormal [facility] FIO2 4 [facility] Interpretation and review of laboratory results Abnormal [facility] Interpretation and review of laboratory results Abnormal [facility] Interpretation and review of laboratory results Abnormal [facility] Procalcitonin [Mass/Vol]on 0 06-16-2022 Interpretation and review of laboratory results Abnormal [facility] XR Chest Single viewon 06-16 [facility] Radiology Study observation (narrative) [facility] XR Chest Single viewOrdered By: Loki Roberts on 06-16-2022 [facility] Work Phone: Bacteria identified Anaer cx Nom (Unsp spec)on 06-15-2022 Interpretation and review of laboratory results Normal [facility] Bacteria identified Cx Nom ( Bld)on 06-15-2022 Interpretation and review of laboratory results Normal [facility] CBC W Auto Differential pane l (Bld)on 06-15-2022 Erythrocyte distribution width (RBC) [Ratio] 13.8 % 11.5 - 14.5 % [facility] Hematocrit (Bld) [Volume fraction] 37.1 % Low 40.0 - 52.0 % [facility] Hemoglobin (Bld) [Mass/Vol] 12.2 g/dL Low 13.0 - 18.0 g/dL [facility] MCH (RBC) [Entitic mass] 30.4 pg 26.0 - 34.0 pg [facility] MCHC (RBC) [Mass/Vol] 33.0 % 32.0 - 36.0 % [facility] MCV (RBC) [Entitic vol] 92.1 fL 80.0 - 98.0 fL [facility] Nucleated RBC/100 WBC (Bld) [Ratio] 0.1 % [facility] Platelet mean volume (Bld) [Entitic vol] 8.6 fL 7.4 - 12.4 fL [facility] Platelets (Bld) [#/Vol] 186 10*3/uL 140 - 440 10*3/uL [facility] RBC (Bld) [#/Vol] 4.03 10*6/uL Low 4.40 - 5.9 0 10*6/uL [facility] WBC (Bld) [#/Vol] 19.0 10*3/uL High 3.6 - 10.7 10*3/uL [facility] Comprehensive metabolic 1998 panelon 06-15-2022 Albumin [Mass/Vol] 3.0 g/dL Low 3.5 - 5.0 g/dL [facility] ALP [Catalytic activity/Vol] 111 U/L 38 - 126 U/L [facility] ALT [Catalytic activity/Vol] 26 U/L 0 - 49 U/L [facility] Anion gap [Moles/Vol] 0 mmol/L Low 3 - 13 mmol/L [facility] AST [Catalytic activity/Vol] 29 U/L 15 - 46 U/L [facility] Bilirubin [Mass/Vol] 0.6 mg/dL 0.2 - 1 .3 mg/dL [facility] Calcium [Mass/Vol] 8.0 mg/dL Low 8.4 - 10. 4 mg/dL [facility] Chloride [Moles/Vol] 95 mmol/L Low 98 - 10 7 mmol/L [facility] CO2 [Moles/Vol] 33 mmol/L High 22 - 30 mmol/L [facility] Creatinine [Mass/Vol] 0.81 mg/dL 0.66 - 1.25 mg/dL [facility] GFR/1.73 sq M.predicted MDRD (S/P/Bld) [Vol rate/Area] - PINF [facility] Glucose [Mass/Vol] 175 mg/dL High 70 - 100 mg/dL [facility] Interpretation and review of laboratory results Abnormal [facility] Potassium [Moles/Vol] 4.2 mmol/L 3.5 - 5.1 mmol/L [facility] Protein [Mass/Vol] 6.0 g/dL Low 6.3 - 8.2 g/dL [facility] Sodium [Moles/Vol] 128 mmol/L Low 135 - 145 mmol/L [facility] Urea nitrogen [Mass/Vol] 10 mg/dL 9 - 20 mg/dL [facility] Creatinine (U) [Mass/Vol]on 06-15-2022 CREATININE, URINE 89.1 mg/dL No Range [facility] Laboratory - Chemistry and C hemistry - challengeon 06-15-2022 Sodium (24H U) [Mass/Vol] 139 mmol/L High 30 - 90 mmol/L [facility] Chloride (U) [Moles/Vol] 109 mmol/L 19 - 209 mmol/L [facility] Magnesium [Mass/Vol] 2.3 mg/dL 1.6 - 2 .3 mg/dL [facility] Laboratory - Drug toxicology on 06-15-2022 Valproate [Mass/Vol] ug/mL Low 50 - 12 0 ug/mL [facility] Laboratory - Microbiology an d Antimicrobial susceptibilityon 06-15-2022 Bacteria identified Cx Nom (Bld) No growth at 5 days [facility] Bacteria identified Anaer cx Nom (Unsp spec) No growth at 5 days [facility] Laboratory - Urinalysison Protein (U) [Mass/Vol] 104 mg/dL High 0 - 1 2 mg/dL [facility] Magnesium [Mass/Vol]on 06-15 Interpretation and review of laboratory results Normal [facility] Manual differential performe d Ql (Bld)on 06-15-2022 Anisocytosis Ql (Bld) Slight Abnormal (none) [facility] Cells Counted Total (Bld) [#] 100 {cells} [facility] Eosinophils (Bld) [#/Vol] 1.0 10*3/uL High 0.0 - 0.5 10*3/uL [facility] Eosinophils Manual 5 High 0 - 1 [facility] Eosinophils/100 WBC (Bld) 5 % 1 - 6 % [facility] Leukocyte morphology finding Nom (Bld) Normal [facility] Lymphocytes (Bld) [#/Vol] 1.1 10*3/uL 1.0 - 4.3 10*3/uL [facility] Lymphocytes Manual 6 [facility] Lymphocytes/100 WBC (Bld) 6 % Low 20 - 40 % [facility] Metamyelocytes (Bld) [#/Vol] 0.2 10*3/uL High NINF - 0.0 10*3/uL [facility] Metamyelocytes Manual 1 [facility] Metamyelocytes/100 WBC (Bld) 1 % High NINF - 0 % [facility] Monocytes (Bld) [#/Vol] 1.1 10*3/uL High 0.0 - 0.8 10*3/uL [facility] Monocytes Manual 6 [facility] alth Monocytes/100 WBC (Bld) 6 % 2 - 10 % [facility] Myelocytes (Bld) [#/Vol] 0.4 10*3/uL High NINF - 0.0 10*3/uL [facility] Myelocytes Manual 2 [facility] ealth Myelocytes/100 WBC (Bld) 2 % High NINF - 0 % [facility] Neutrophils (Bld) [#/Vol] 15.2 10*3/uL High 1.8 - 7.0 10*3/uL [facility] Neutrophils Manual 80 [facility] Ovalocytes LM Ql (Bld) Slight Abnormal (none) [facility] Platelet morphology finding Nom (Bld) Normal [facility] Polychromasia LM Ql (Bld) Slight Abnormal (none) [facility] Segmented neutrophils/100 WBC (Bld) 80 % 40 - 80 % [facility] Stomatocytes LM Ql (Bld) Slight Abnormal (none) [facility] WBC corrected for nucl RBC (Bld) [#/Vol] 19.00 10*3/uL High 3.60 - 10.70 10*3/uL [facility] No Panel Informationon 06-15 Interpretation and review of laboratory results Abnormal [facility] Interpretation and review of laboratory results Normal [facility] Interpretation and review of laboratory results Normal [facility] OSMOLALITY, URINE 598 [facility] ealth [facility] Interpretation and review of laboratory results Abnormal [facility] Interpretation and review of laboratory results Abnormal [facility] Respiratory pathogens DNA an d RNA panel FAN+non-probe (Lower resp)on 06-15-2022 Acinetobacter baumannii complex Not detected Not Detected [facility] Adenovirus Not detected Not Detected [facility] Chlamydia pneumoniae Not detected Not Detected [facility] Enterobacter cloacae complex Not detected Not Detected [facility] Escherichia coli Not detected Not Detected [facility] FLUAV RNA FAN+non-probe Ql (Lower resp) Not detected Not Detected [facility] FLUBV RNA FAN+non-probe Ql (Lower resp) Not detected Not Detected [facility] Haemophilus influenzae Not detected Not Detected [facility] Human Metapneumovirus Not detected Not Detected [facility] Human Rhinovirus/Enterovirus Not detected Not Detected [facility] Interpretation and review of laboratory results Abnormal [facility] Klebsiella (Enterobacter) aerogenes Not detected Not Detected [facility] Klebsiella oxytoca Not detected Not Detected [facility] Klebsiella pneumoniae Not detected Not Detected [facility] Legionella pneumophila Not detected Not Detected [facility] Moraxella catarrhalis Not detected Not Detected [facility] Mycoplasma pneumoniae Not detected Not Detected [facility] Parainfluenza virus Not detected Not Detected [facility] Proteus spp Not detected Not Detected [facility] Pseudomonas aeruginosa Not detected Not Detected [facility] RSV RNA FAN+probe Ql (Resp) Not detected Not Detected [facility] S. agalactiae Org specific cx Ql (Vag fld) Not detected Not Detected [facility] SARS-CoV-2 (COVID-19) RNA FAN+probe Ql (Unsp spec) Detected Abnormal Not Detected [facility] Serratia marcescens Not detected Not Detected [facility] Staphylococcus aureus Not detected Not Detected [facility] Streptococcus pneumoniae Not detected Not Detected [facility] Streptococcus pyogenes Not detected Not Detected [facility] Urinalysis complete panel (U )Ordered By: Miranda Ware on 06-15-2022 Bacteria LM.HPF (Urine sed) [#/Area] Negative Negative /HPF [facility] Bilirubin Ql (U) Negative Negative mg/dL [facility] Clarity (U) Slightly Cloudy Abnormal Clear [facility] alth Color (U) Yellow Lt. Yellow [facility] Epithelial cells.squamous LM.HPF (Urine sed) [#/Area] Negative [facility] h Glucose Ql (U) 500 mg/dL Abnormal Normal (<70) [facility] Hemoglobin Ql (U) >1.0 Abnormal Negative mg/dL [facility] Interpretation and review of laboratory results Abnormal [facility] Ketones (U) [Mass/Vol] 20 mg/dL Abnormal Negative [facility] Leukocyte esterase Test strip Ql (U) Negative Negative Chika/uL [facility] Mucus LM.HPF (Urine sed) [#/Area] Few Negative /LPF [facility] Nitrite Ql (U) Negative Negative [facility] th pH (U) 6.5 [pH] 5.0 - 8.0 pH [facility] Protein (U) [Mass/Vol] 100 mg/dL Abnormal Negative [facility] RBC LM.HPF (Urine sed) [#/Area] /[HPF] Abnormal [facility] Specific gravity (U) [Rel density] 1.026 1.005 - 1.030 [facility] Urobilinogen (U) [Mass/Vol] 6 mg/dL Abnormal Normal (0-1) [facility] WBC LM.HPF (Urine sed) [#/Area] 6-10 Abnormal [facility] XR Chest Single viewon 06-15 [facility] Radiology Study observation (narrative) [facility] alth XR Chest Single viewOrdered By: Chaz Poon on 06-15-2022 [facility] Work Phone: Bacteria identified Aer cx N om (Lower resp)Ordered By: Jan Arvizu on 06-14-2022 Gram Stain Result Rare Epithelial cell s per low power field [facility] Gram Stain Result Moderate Polymorphonuclear leukocytes per low power field [facility] Gram Stain Result No organisms seen [facility] CBC W Auto Differential pane l (Bld)on 06-14-2022 Erythrocyte distribution width (RBC) [Ratio] 13.6 % 11.5 - 14.5 % [facility] Hematocrit (Bld) [Volume fraction] 36.3 % Low 40.0 - 52.0 % [facility] Hemoglobin (Bld) [Mass/Vol] 12.2 g/dL Low 13.0 - 18.0 g/dL [facility] MCH (RBC) [Entitic mass] 30.7 pg 26.0 - 34.0 pg [facility] MCHC (RBC) [Mass/Vol] 33.7 % 32.0 - 36.0 % [facility] MCV (RBC) [Entitic vol] 91.1 fL 80.0 - 98.0 fL [facility] Nucleated RBC/100 WBC (Bld) [Ratio] 0.0 % [facility] Platelet mean volume (Bld) [Entitic vol] 8.7 fL 7.4 - 12.4 fL [facility] Platelets (Bld) [#/Vol] 166 10*3/uL 140 - 440 10*3/uL [facility] RBC (Bld) [#/Vol] 3.98 10*6/uL Low 4.40 - 5.9 0 10*6/uL [facility] WBC (Bld) [#/Vol] 18.7 10*3/uL High 3.6 - 10.7 10*3/uL [facility] CRP [Mass/Vol]on 06-14-2022 Interpretation and review of laboratory results Abnormal [facility] Comprehensive metabolic 1998 panelon 06-14-2022 Albumin [Mass/Vol] 2.9 g/dL Low 3.5 - 5.0 g/dL [facility] ALP [Catalytic activity/Vol] 106 U/L 38 - 126 U/L [facility] ALT [Catalytic activity/Vol] 36 U/L 0 - 49 U/L [facility] Anion gap [Moles/Vol] -3 mmol/L Low 3 - 13 mmol/L [facility] AST [Catalytic activity/Vol] 41 U/L 15 - 46 U/L [facility] Bilirubin [Mass/Vol] 0.7 mg/dL 0.2 - 1 .3 mg/dL [facility] Calcium [Mass/Vol] 7.9 mg/dL Low 8.4 - 10. 4 mg/dL [facility] Chloride [Moles/Vol] 98 mmol/L 98 - 10 7 mmol/L [facility] CO2 [Moles/Vol] 32 mmol/L High 22 - 30 mmol/L [facility] Creatinine [Mass/Vol] 0.71 mg/dL 0.66 - 1.25 mg/dL [facility] GFR/1.73 sq M.predicted MDRD (S/P/Bld) [Vol rate/Area] - PINF [facility] Glucose [Mass/Vol] 171 mg/dL High 70 - 100 mg/dL [facility] Interpretation and review of laboratory results Abnormal [facility] Potassium [Moles/Vol] 4.2 mmol/L 3.5 - 5.1 mmol/L [facility] Protein [Mass/Vol] 5.9 g/dL Low 6.3 - 8.2 g/dL [facility] Sodium [Moles/Vol] 127 mmol/L Low 135 - 145 mmol/L [facility] Urea nitrogen [Mass/Vol] 8 mg/dL Low 9 - 20 mg/dL [facility] Laboratory - Chemistry and C hemistry - challengeon 06-14-2022 Procalcitonin [Mass/Vol] 0.47 ng/mL High 0.00 - 0.09 ng/mL [facility] CRP [Mass/Vol] 195.0 mg/L High NINF - 10.0 mg/L [facility] Magnesium [Mass/Vol] 2.2 mg/dL 1.6 - 2 .3 mg/dL [facility] Lipase [Catalytic activity/Vol] 434 U/L High 23 - 300 U/L [facility] Laboratory - Microbiology an d Antimicrobial susceptibilityOrdered By: Jan Arvizu on 06-14-2022 Bacteria identified Aer cx Nom (Lower resp) Rare respiratory vikram present. [facility] Lipase [Catalytic activity/V ol]on 06-14-2022 Interpretation and review of laboratory results Abnormal [facility] Magnesium [Mass/Vol]on 06-14 Interpretation and review of laboratory results Normal [facility] Manual differential performe d Ql (Bld)on 06-14-2022 Anisocytosis Ql (Bld) Slight Abnormal (none) [facility] Band form neutrophils (Bld) [#/Vol] [...] Health Leukocyte morphology finding Nom (Bld) Normal [facility] Lymphocytes (Bld) [#/Vol] 1.9 10*3/uL 1.0 - 4.3 10*3/uL [facility] Lymphocytes Manual 10 [facility] Lymphocytes/100 WBC (Bld) 10 % Low 20 - 40 % [facility] Monocytes (Bld) [#/Vol] 0.6 10*3/uL 0.0 - 0.8 10*3/uL [facility] Monocytes Manual 3 [facility] Monocytes/100 WBC (Bld) 3 % 2 - 10 % [facility] Myelocytes (Bld) [#/Vol] 0.4 10*3/uL High NINF - 0.0 10*3/uL [facility] Myelocytes Manual 2 [facility] Myelocytes/100 WBC (Bld) 2 % High NINF - 0 % [facility] Neutrophils (Bld) [#/Vol] 15.1 10*3/uL High 1.8 - 7.0 10*3/uL [facility] Neutrophils Manual 80 [facility] Nucleated RBC/100 WBC (Bld) [Ratio] 1 % [facility] Ovalocytes LM Ql (Bld) Slight Abnormal (none) [facility] Platelet morphology finding Nom (Bld) Normal [facility] Polychromasia LM Ql (Bld) Slight Abnormal (none) [facility] Segmented neutrophils/100 WBC (Bld) 80 % 40 - 80 % [facility] WBC corrected for nucl RBC (Bld) [#/Vol] 18.70 10*3/uL High 3.60 - 10.70 10*3/uL [facility] No Panel Informationon 06-14 Interpretation and review of laboratory results Abnormal [facility] Procalcitonin [Mass/Vol]on 0 06-14-2022 Interpretation and review of laboratory results Abnormal [facility] Bacteria identified Aer cx N om (Unsp spec)Ordered By: Des Boston on 06-13-2022 Gram Stain Result Rare Polymorphonucle ar leukocytes per low power field [facility] Gram Stain Result No organisms seen [facility] CBC W Auto Differential pane l (Bld)on 06-13-2022 Basophils (Bld) [#/Vol] 0.1 10*3/uL 0.0 - 0.2 10*3/uL [facility] Basophils/100 WBC (Bld) 0.4 % 0.0 - 2.0 % [facility] Eosinophils (Bld) [#/Vol] 0.2 10*3/uL 0.0 - 0.5 10*3/uL [facility] Eosinophils/100 WBC (Bld) 1.6 % 1.0 - 6.0 % [facility] Erythrocyte distribution width (RBC) [Ratio] 13.3 % 11.5 - 14.5 % [facility] Hematocrit (Bld) [Volume fraction] 35.5 % Low 40.0 - 52.0 % [facility] Hemoglobin (Bld) [Mass/Vol] 11.9 g/dL Low 13.0 - 18.0 g/dL [facility] Interpretation and review of laboratory results Abnormal [facility] Lymphocytes (Bld) [#/Vol] 1.1 10*3/uL 1.0 - 4.3 10*3/uL [facility] Lymphocytes/100 WBC (Bld) 7.8 % Low 20.0 - 40.0 % [facility] MCH (RBC) [Entitic mass] 30.9 pg 26.0 - 34.0 pg [facility] MCHC (RBC) [Mass/Vol] 33.5 % 32.0 - 36.0 % [facility] MCV (RBC) [Entitic vol] 92.0 fL 80.0 - 98.0 fL [facility] Monocytes (Bld) [#/Vol] 1.4 10*3/uL High 0.0 - 0.8 10*3/uL [facility] Monocytes/100 WBC (Bld) 9.8 % 2.0 - 10.0 % [facility] Neutrophils (Bld) [#/Vol] 11.6 10*3/uL High 1.8 - 7.0 10*3/uL [facility] Neutrophils/100 WBC (Bld) 80.4 % High 40.0 - 80.0 % [facility] Nucleated RBC/100 WBC (Bld) [Ratio] 0.0 % [facility] Platelet mean volume (Bld) [Entitic vol] 8.8 fL 7.4 - 12.4 fL [facility] Platelets (Bld) [#/Vol] 135 10*3/uL Low 140 - 440 10*3/uL [facility] RBC (Bld) [#/Vol] 3.86 10*6/uL Low 4.40 - 5.9 0 10*6/uL [facility] WBC (Bld) [#/Vol] 14.4 10*3/uL High 3.6 - 10.7 10*3/uL [facility] CT Abdomen and Pelvis W cont rast Constantine 06-13-2022 [facility] Radiology Study observation (narrative) [facility] CT Abdomen and Pelvis W cont rast IVOrdered By: Merrick Lopez on 06-13-2022 [facility] Work Phone: Comprehensive metabolic 1998 panelon 06-13-2022 Albumin [Mass/Vol] 2.7 g/dL Low 3.5 - 5.0 g/dL [facility] ALP [Catalytic activity/Vol] 77 U/L 38 - 126 U/L [facility] ALT [Catalytic activity/Vol] 26 U/L 0 - 49 U/L [facility] Anion gap [Moles/Vol] 0 mmol/L Low 3 - 13 mmol/L [facility] AST [Catalytic activity/Vol] 35 U/L 15 - 46 U/L [facility] Bilirubin [Mass/Vol] 0.8 mg/dL 0.2 - 1 .3 mg/dL [facility] Calcium [Mass/Vol] 7.3 mg/dL Low 8.4 - 10. 4 mg/dL [facility] Chloride [Moles/Vol] 100 mmol/L 98 - 10 7 mmol/L [facility] CO2 [Moles/Vol] 29 mmol/L 22 - 30 mmol/L [facility] Creatinine [Mass/Vol] 0.76 mg/dL 0.66 - 1.25 mg/dL [facility] GFR/1.73 sq M.predicted MDRD (S/P/Bld) [Vol rate/Area] - PINF [facility] Glucose [Mass/Vol] 189 mg/dL High 70 - 100 mg/dL [facility] Interpretation and review of laboratory results Abnormal [facility] Potassium [Moles/Vol] 4.0 mmol/L 3.5 - 5.1 mmol/L [facility] Protein [Mass/Vol] 5.6 g/dL Low 6.3 - 8.2 g/dL [facility] Sodium [Moles/Vol] 129 mmol/L Low 135 - 145 mmol/L [facility] Urea nitrogen [Mass/Vol] 8 mg/dL Low 9 - 20 mg/dL [facility] Laboratory - Chemistry and C hemistry - challengeon 06-13-2022 Magnesium [Mass/Vol] 2.3 mg/dL 1.6 - 2 .3 mg/dL [facility] Laboratory - Microbiology an d Antimicrobial susceptibilityOrdered By: Des Boston on 06-13-2022 Bacteria identified Aer cx Nom (Unsp spec) No growth at 72 hours [facility] ealth Magnesium [Mass/Vol]on 06-13 Interpretation and review of laboratory results Normal [facility] No Panel Informationon 06-13 [facility] US Abdomen limitedon 023 [facility] Radiology Study observation (narrative) [facility] alth CBC W Auto Differential pane l (Bld)Ordered By: Angelica Bennett on 06-12-2022 Basophils (Bld) [#/Vol] 0.1 10*3/uL 0.0 - 0.2 10*3/uL [facility] Basophils/100 WBC (Bld) 0.5 % 0.0 - 2.0 % [facility] Eosinophils (Bld) [#/Vol] 0.2 10*3/uL 0.0 - 0.5 10*3/uL [facility] Eosinophils/100 WBC (Bld) 1.5 % 1.0 - 6.0 % [facility] Erythrocyte distribution width (RBC) [Ratio] 13.8 % 11.5 - 14.5 % [facility] Hematocrit (Bld) [Volume fraction] 35.4 % Low 40.0 - 52.0 % [facility] Hemoglobin (Bld) [Mass/Vol] 11.8 g/dL Low 13.0 - 18.0 g/dL [facility] Interpretation and review of laboratory results Abnormal [facility] Lymphocytes (Bld) [#/Vol] 1.5 10*3/uL 1.0 - 4.3 10*3/uL [facility] Lymphocytes/100 WBC (Bld) 13.0 % Low 20.0 - 40.0 % [facility] MCH (RBC) [Entitic mass] 31.0 pg 26.0 - 34.0 pg [facility] MCHC (RBC) [Mass/Vol] 33.4 % 32.0 - 36.0 % [facility] MCV (RBC) [Entitic vol] 92.8 fL 80.0 - 98.0 fL [facility] Monocytes (Bld) [#/Vol] 1.2 10*3/uL High 0.0 - 0.8 10*3/uL [facility] Monocytes/100 WBC (Bld) 10.2 % High 2.0 - 10.0 % [facility] Neutrophils (Bld) [#/Vol] 8.9 10*3/uL High 1.8 - 7.0 10*3/uL [facility] Neutrophils/100 WBC (Bld) 74.8 % 40.0 - 80.0 % [facility] Nucleated RBC/100 WBC (Bld) [Ratio] 0.0 % [facility] Platelet mean volume (Bld) [Entitic vol] 9.4 fL 7.4 - 12.4 fL [facility] Platelets (Bld) [#/Vol] 121 10*3/uL Low 140 - 440 10*3/uL [facility] RBC (Bld) [#/Vol] 3.82 10*6/uL Low 4.40 - 5.9 0 10*6/uL [facility] WBC (Bld) [#/Vol] 11.9 10*3/uL High 3.6 - 10.7 10*3/uL [facility] Comprehensive metabolic 1998 panelon 06-12-2022 Albumin [Mass/Vol] 2.6 g/dL Low 3.5 - 5.0 g/dL [facility] ALP [Catalytic activity/Vol] 67 U/L 38 - 126 U/L [facility] ALT [Catalytic activity/Vol] 17 U/L 0 - 49 U/L [facility] Anion gap [Moles/Vol] -3 mmol/L Low 3 - 13 mmol/L [facility] AST [Catalytic activity/Vol] 29 U/L 15 - 46 U/L [facility] Bilirubin [Mass/Vol] 1.1 mg/dL 0.2 - 1 .3 mg/dL [facility] Calcium [Mass/Vol] 7.0 mg/dL Low 8.4 - 10. 4 mg/dL [facility] Chloride [Moles/Vol] 104 mmol/L 98 - 10 7 mmol/L [facility] CO2 [Moles/Vol] 27 mmol/L 22 - 30 mmol/L [facility] Creatinine [Mass/Vol] 0.84 mg/dL 0.66 - 1.25 mg/dL [facility] GFR/1.73 sq M.predicted MDRD (S/P/Bld) [Vol rate/Area] - PINF [facility] Glucose [Mass/Vol] 140 mg/dL High 70 - 100 mg/dL [facility] Potassium [Moles/Vol] 4.1 mmol/L 3.5 - 5.1 mmol/L [facility] Protein [Mass/Vol] 5.2 g/dL Low 6.3 - 8.2 g/dL [facility] Sodium [Moles/Vol] 129 mmol/L Low 135 - 145 mmol/L [facility] Urea nitrogen [Mass/Vol] 11 mg/dL 9 - 20 mg/dL [facility] Laboratory - Chemistry and C hemistry - challengeon 06-12-2022 Lipase [Catalytic activity/Vol] 339 U/L High 23 - 300 U/L [facility] Magnesium [Mass/Vol] 2.0 mg/dL 1.6 - 2 .3 mg/dL [facility] Magnesium [Mass/Vol]on 06-12 Interpretation and review of laboratory results Normal [facility] No Panel InformationOrdered By: Sonia Rodriguez on 06-12-2022 Right Pop Rfx 1.0 s [facility] h Work Phone: No Panel Informationon 06-12 CV CPACS Interpretation and review of laboratory results Abnormal [facility] Respiratory pathogens DNA an d RNA panel FAN+non-probe (Lower resp)on 06-12-2022 Acinetobacter baumannii complex Not detected Not Detected [facility] Adenovirus Not detected Not Detected [facility] Chlamydia pneumoniae Not detected Not Detected [facility] Enterobacter cloacae complex Not detected Not Detected [facility] Escherichia coli Not detected Not Detected [facility] FLUAV RNA FAN+non-probe Ql (Lower resp) Not detected Not Detected [facility] FLUBV RNA FAN+non-probe Ql (Lower resp) Not detected Not Detected [facility] Haemophilus influenzae Not detected Not Detected [facility] Human Metapneumovirus Not detected Not Detected [facility] Human Rhinovirus/Enterovirus Not detected Not Detected [facility] Interpretation and review of laboratory results Normal [facility] Klebsiella (Enterobacter) aerogenes Not detected Not Detected [facility] Klebsiella oxytoca Not detected Not Detected [facility] Klebsiella pneumoniae Not detected Not Detected [facility] Legionella pneumophila Not detected Not Detected [facility] Moraxella catarrhalis Not detected Not Detected [facility] Mycoplasma pneumoniae Not detected Not Detected [facility] Parainfluenza virus Not detected Not Detected [facility] Proteus spp Not detected Not Detected [facility] Pseudomonas aeruginosa Not detected Not Detected [facility] RSV RNA FAN+probe Ql (Resp) Not detected Not Detected [facility] S. agalactiae Org specific cx Ql (Vag fld) Not detected Not Detected [facility] SARS-CoV-2 (COVID-19) RNA FAN+probe Ql (Unsp spec) Not detected Not Detected [facility] Serratia marcescens Not detected Not Detected [facility] Staphylococcus aureus Not detected Not Detected [facility] Streptococcus pneumoniae Not detected Not Detected [facility] Streptococcus pyogenes Not detected Not Detected [facility] Vascular US lower extremity venous duplex bilateralon [...] and peroneal veins were visualized in segments. [employer] A villegas scale, color Doppler imaging and spectral Doppler analysis ultrasound was performed. During the study longitudinal and transverse views were obtained. Pulsed wave doppler was performed. The exam was performed with the patient in the supine position. Overall the study quality was adequate. CV CPACS XR Chest Single viewon 06-12 [facility] Rad[facility] Study observation (narrative) [facility] Chest Single viewOrdered By: Asad Mccarthy on 06-12-2022 [facility] [employer] Phone: XR Foot - right 3 Viewson [facility] Rad[facility] (narrative) [facility] Foot - right 3 ViewsOrder ed By: Ezra Guthrie on 06-12-2022 [facility] Phone: CBC W Auto Differential pane l (Bld)Ordered By: Jacobo Ward on 06-11-2022 Basophils (Bld) [#/Vol] 0.0 10*3/uL 0.0 - 0.2 10*3/uL [facility] [employer] Basophils/100 WBC (Bld) 0.2 % 0.0 - 2.0 % [facility] [employer] Eosinophils (Bld) [#/Vol] 0.0 10*3/uL 0.0 - 0.5 10*3/uL [facility] Eosinophils/100 WBC (Bld) 0.2 % Low 1.0 - 6.0 % [facility] Erythrocyte distribution width (RBC) [Ratio] 13.8 % 11.5 - 14.5 % [facility] Hematocrit (Bld) [Volume fraction] 41.0 % 40.0 - 52.0 % [facility] Hemoglobin (Bld) [Mass/Vol] 13.8 g/dL 13.0 - 18.0 g/dL [facility] Interpretation and review of laboratory results Abnormal [facility] Lymphocytes (Bld) [#/Vol] 1.8 10*3/uL 1.0 - 4.3 10*3/uL [facility] Lymphocytes/100 WBC (Bld) 10.4 % Low 20.0 - 40.0 % [facility] MCH (RBC) [Entitic mass] 31.5 pg 26.0 - 34.0 pg [facility] MCHC (RBC) [Mass/Vol] 33.7 % 32.0 - 36.0 % [facility] MCV (RBC) [Entitic vol] 93.3 fL 80.0 - 98.0 fL [facility] Monocytes (Bld) [#/Vol] 1.5 10*3/uL High 0.0 - 0.8 10*3/uL [facility] Monocytes/100 WBC (Bld) 8.5 % 2.0 - 10.0 % [facility] Neutrophils (Bld) [#/Vol] 14.0 10*3/uL High 1.8 - 7.0 10*3/uL [facility] Neutrophils/100 WBC (Bld) 80.7 % High 40.0 - 80.0 % [facility] Nucleated RBC/100 WBC (Bld) [Ratio] 0.0 % [facility] Platelet mean volume (Bld) [Entitic vol] 9.1 fL 7.4 - 12.4 fL [facility] Platelets (Bld) [#/Vol] 132 10*3/uL Low 140 - 440 10*3/uL [facility] RBC (Bld) [#/Vol] 4.40 10*6/uL 4.40 - 5.9 0 10*6/uL [facility] WBC (Bld) [#/Vol] 17.3 10*3/uL High 3.6 - 10.7 10*3/uL [facility] Comprehensive metabolic 1998 panelon 06-11-2022 Albumin [Mass/Vol] 2.9 g/dL Low 3.5 - 5.0 g/dL [facility] ALP [Catalytic activity/Vol] 69 U/L 38 - 126 U/L [facility] ALT [Catalytic activity/Vol] 15 U/L 0 - 49 U/L [facility] Anion gap [Moles/Vol] 1 mmol/L Low 3 - 13 mmol/L [facility] AST [Catalytic activity/Vol] 30 U/L 15 - 46 U/L [facility] Bilirubin [Mass/Vol] 1.2 mg/dL 0.2 - 1 .3 mg/dL [facility] Calcium [Mass/Vol] 7.0 mg/dL Low 8.4 - 10. 4 mg/dL [facility] Chloride [Moles/Vol] 104 mmol/L 98 - 10 7 mmol/L [facility] CO2 [Moles/Vol] 29 mmol/L 22 - 30 mmol/L [facility] Creatinine [Mass/Vol] 0.97 mg/dL 0.66 - 1.25 mg/dL [facility] GFR/1.73 sq M.predicted MDRD (S/P/Bld) [Vol rate/Area] 89.9 mL/min/{1.73_m2} - PINF [facility] th Glucose [Mass/Vol] 145 mg/dL High 70 - 100 mg/dL [facility] Interpretation and review of laboratory results Abnormal [facility] Potassium [Moles/Vol] 4.3 mmol/L 3.5 - 5.1 mmol/L [facility] Protein [Mass/Vol] 5.7 g/dL Low 6.3 - 8.2 g/dL [facility] Sodium [Moles/Vol] 133 mmol/L Low 135 - 145 mmol/L [facility] Urea nitrogen [Mass/Vol] 16 mg/dL 9 - 20 mg/dL [facility] Laboratory - Chemistry and C hemistry - challengeon 06-11-2022 Magnesium [Mass/Vol] 2.1 mg/dL 1.6 - 2 .3 mg/dL [facility] Magnesium [Mass/Vol]on 06-11 Interpretation and review of laboratory results Normal [facility] No Panel Informationon 06-11 [facility] Laboratory - Chemistry and C hemistry - challengeOrdered By: Julissa Taylor on 06-10-2022 Triglyceride [Mass/Vol] 125 mg/dL NINF - 150 mg/dL [facility] No Panel InformationOrdered By: Ajay Cobos on 06-10-2022 Interpretation and review of laboratory results Normal [facility] Legionella pneumophila Ag Not detected Not Detected [facility] Streptococcus pneumoniae Ag Not detected Not Detected [facility] No Panel Informationon 06-10 [facility] Radiology Study observation (narrative) [facility] No Panel InformationOrdered By: Jus Barlow on 06-10-2022 [facility] Work Phone: Respiratory pathogens DNA an d RNA panel FAN+probe (Nph)on 06-10-2022 Adenovirus Not detected Not Detected [facility] B. pertussis DNA FAN+probe Ql (Unsp spec) Not detected Not Detected [facility] Bordetella parapertussis Not detected Not Detected [facility] Chlamydia pneumoniae Not detected Not Detected [facility] Coronavirus 229E Not detected Not Detected [facility] Coronavirus HKU1 Not detected Not Detected [facility] Coronavirus NL63 Not detected Not Detected [facility] Coronavirus OC43 Not detected Not Detected [facility] FLUAV RNA FAN+non-probe Ql (Nph) Not detected Not Detected [facility] FLUBV RNA FAN+non-probe Ql (Nph) Not detected Not Detected [facility] Human Metapneumovirus Not detected Not Detected [facility] Human Rhinovirus/Enterovirus Not detected Not Detected [facility] Interpretation and review of laboratory results Normal [facility] Mycoplasma pneumoniae Not detected Not Detected [facility] Parainfluenza 1 Not detected Not Detected [facility] Parainfluenza 2 Not detected Not Detected [facility] Parainfluenza 3 Not detected Not Detected [facility] Parainfluenza 4 Not detected Not Detected [facility] Respiratory Syncytial Virus Not detected Not Detected [facility] SARS-CoV-2 (COVID-19) RNA FAN+non-probe Ql (Nph) Not detected Not Detected [facility] Triglyceride [Mass/Vol]Order ed By: Julissa Taylor on 06-10-2022 Interpretation and review of laboratory results Normal [facility] Urinalysis complete panel (U )Ordered By: Bia Covington on 06-10-2022 Bacteria LM.HPF (Urine sed) [#/Area] Negative Negative /HPF [facility] Glucose Ql (U) >1,000 Abnormal Normal (<70) mg/dL [facility] Leukocyte esterase Test strip Ql (U) Negative Negative Chika/uL [facility] Protein (U) [Mass/Vol] 200 mg/dL Abnormal Negative [facility] RBC LM.HPF (Urine sed) [#/Area] 0-2 [facility] WBC LM.HPF (Urine sed) [#/Area] 3-5 [facility] Basophil percentageOrdered B y: Demetrius Fenton on 05-20-2022 Chloride [Moles/Vol] 105 mmol/L 98-[address] [facility] Glucose [Mass/Vol] 144 mg/dL 74-106 [facility] Comment on above: Fasting Glucose resu lt greater than or equal to 126 mg/dL suggests DIABETES MELLITUS per A.D.A. criteria. Potassium [Moles/Vol] 4.9 mmol/L 3.5-5.1 [facility] Sodium [Moles/Vol] 138 mmol/L 136-145 [facility] Laboratory - Chemistry and C hemistry - challengeOrdered By: Demetrius Fenton on 05-20-2022 CO2 [Moles/Vol] 26.0 mmol/L 21.0-32.0 [facility] Urea nitrogen/Creatinine [Mass ratio] 20.7 mg/mg 10- [facility] No Panel InformationOrdered By: Demetrius Fenton on 05-20-2022 Estimated GFR (MDRD) Amer 62 mL/min >60 [facility] Comment on above: GFR Calc Estimated GFR (MDRD) Non-Af Amer 51 mL/min >60 [facility] Comment on above: Non- GFR Calc Serum or plasma calcium roseanne urement (mass/volume)Ordered By: Demetrius Fenton on 05-20-2022 Calcium [Mass/Vol] 8.9 mg/dL 8.5-10.1 [facility] Serum or plasma creatinine m easurement (mass/volume)Ordered By: Demetrius Fenton on 05-20-2022 Creatinine [Mass/Vol] 1.50 mg/dL 0.70-1.30 [facility] Comment on above: The validity of the calculated GFR & GFRAA in patients over 70 years has not been determined. Clinical correlation is essential. Serum or plasma urea nitroge n measurement (mass/volume)Ordered By: Demetrius Fenton on 05-20-2022 Urea nitrogen [Mass/Vol] 31 mg/dL 7-18 [facility] Thin prep Papanicolaou smear with manual screeningOrdered By: Demetrius Fenton on 05-20-2022 Thin prep Papanicolaou smear with manual screening 7 5-15 [facility] Basophil percentageOrdered B y: Demetrius Fenton on 05-13-2022 Chloride [Moles/Vol] 104 mmol/L 98-[address] [facility] Glucose [Mass/Vol] 116 mg/dL 74-106 [facility] Comment on above: Fasting Glucose resu lt from 100 to 125 mg/dL suggests IMPAIRED HOMEOSTASIS per A.D.A. criteria. Potassium [Moles/Vol] 4.9 mmol/L 3.5-5.1 [facility] Sodium [Moles/Vol] 139 mmol/L 136-145 [facility] WBC (Bld) [#/Vol] 8.0 10*3/uL 4.4-11.0 [facility] Blood erythrocytes count (nu mber/volume)Ordered By: Demetrius Fenton on 05-13-2022 RBC (Bld) [#/Vol] 4.12 10*6/uL 4.6-6.2 [facility] Blood hemoglobin measurement (mass/volume)Ordered By: Demetrius Fenton on 05-13-2022 Hemoglobin (Bld) [Mass/Vol] 12.9 g/dL 13.0-16.5 [facility] Blood platelet mean volumeOr dered By: Demetrius eFnton on 05-13-2022 Platelet mean volume (Bld) [Entitic vol] 11.8 fL 6.2-12.0 [facility] Determination of erythrocyte mean corpuscular volume (MCV)Ordered By: Demetrius Fenton on 05-13-2022 MCV (RBC) [Entitic vol] 96.1 fL 80-94 [facility] Hematocrit Auto (Bld) [Volum e fraction]Ordered By: Demetrius Fenton on 05-13-2022 Hematocrit (Bld) [Volume fraction] 39.6 % 40-54 [facility] Laboratory - Chemistry and C hemistry - challengeOrdered By: Demetrius Fenton on 05-13-2022 CO2 [Moles/Vol] 27.0 mmol/L 21.0-32.0 [facility] Urea nitrogen/Creatinine [Mass ratio] 18.6 mg/mg 10-20 [facility] Laboratory - Hematology and Cell countsOrdered By: Demetrius Fenton on 05-13-2022 Erythrocyte distribution width (RBC) [Entitic vol] 45.3 fL 35.1-43.9 [facility] Erythrocyte distribution width (RBC) [Ratio] 13.2 % 11.6-14.6 [facility] MCH (RBC) [Entitic mass] 31.3 pg 27.0-32.0 [facility] MCHC Auto (RBC) [Mass/Vol]Or dered By: Demetrius Fenton on 05-13-2022 MCHC (RBC) [Mass/Vol] 32.6 g/dL 32-36 [facility] No Panel InformationOrdered By: Demetrius Fenton on 05-13-2022 Estimated GFR (MDRD) Amer 67 mL/min >60 [facility] Comment on above: GFR Calc Estimated GFR (MDRD) Non-Af Amer 55 mL/min >60 [facility] Comment on above: Non- GFR Calc Platelets bldOrdered By: Miriam Fenton on 05-13-2022 Platelets (Bld) [#/Vol] 172 10*3/uL 150-450 [facility] Serum or plasma calcium roseanne urement (mass/volume)Ordered By: Demetrius Fenton on 05-13-2022 Calcium [Mass/Vol] 9.0 mg/dL 8.5-10.1 [facility] Serum or plasma creatinine m easurement (mass/volume)Ordered By: Demetrius Fenton on 05-13-2022 Creatinine [Mass/Vol] 1.40 mg/dL 0.70-1.30 [facility] Comment on above: The validity of the calculated GFR & GFRAA in patients over 70 years has not been determined. Clinical correlation is essential. Serum or plasma urea nitroge n measurement (mass/volume)Ordered By: Demetrius Fenton on 05-13-2022 Urea nitrogen [Mass/Vol] 26 mg/dL 7-18 [facility] Thin prep Papanicolaou smear with manual screeningOrdered By: Demetrius Fenton on 05-13-2022 Thin prep Papanicolaou smear with manual screening 8 5-15 [facility] Basophil percentageOrdered B y: Demetrius Fenton on 04-29-2022 Chloride [Moles/Vol] 105 mmol/L 98-[address] [facility] Glucose [Mass/Vol] 125 mg/dL 74-106 [facility] Comment on above: Fasting Glucose resu lt from 100 to 125 mg/dL suggests IMPAIRED HOMEOSTASIS per A.D.A. criteria. Potassium [Moles/Vol] 4.6 mmol/L 3.5-5.1 [facility] Sodium [Moles/Vol] 137 mmol/L 136-145 [facility] WBC (Bld) [#/Vol] 8.7 10*3/uL 4.4-11.0 [facility] Blood erythrocytes count (nu mber/volume)Ordered By: Demetrius Fenton on 04-29-2022 RBC (Bld) [#/Vol] 4.05 10*6/uL 4.6-6.2 [facility] Blood hemoglobin measurement (mass/volume)Ordered By: Demetrius Fenton on 04-29-2022 Hemoglobin (Bld) [Mass/Vol] 12.6 g/dL 13.0-16.5 [facility] Blood platelet mean volumeOr dered By: Demetrius Fenton on 04-29-2022 Platelet mean volume (Bld) [Entitic vol] 11.1 fL 6.2-12.0 [facility] Determination of erythrocyte mean corpuscular volume (MCV)Ordered By: Demetrius Fenton on 04-29-2022 MCV (RBC) [Entitic vol] 94.6 fL 80-94 [facility] Hematocrit Auto (Bld) [Volum e fraction]Ordered By: Demetrius Fenton on 04-29-2022 Hematocrit (Bld) [Volume fraction] 38.3 % 40-54 [facility] Laboratory - Chemistry and C hemistry - challengeOrdered By: Demetrius Fenton on 04-29-2022 CO2 [Moles/Vol] 26.0 mmol/L 21.0-32.0 [facility] Urea nitrogen/Creatinine [Mass ratio] 18.6 mg/mg 01-27 [facility] Laboratory - Hematology and Cell countsOrdered By: Demetrius Fenton on 04-29-2022 Erythrocyte distribution width (RBC) [Entitic vol] 44.2 fL 35.1-43.9 [facility] Erythrocyte distribution width (RBC) [Ratio] 13.1 % 11.6-14.6 [facility] MCH (RBC) [Entitic mass] 31.1 pg 27.0-32.0 [facility] MCHC Auto (RBC) [Mass/Vol]Or dered By: Demetrius Fenton on 04-29-2022 MCHC (RBC) [Mass/Vol] 32.9 g/dL 32-36 [facility] No Panel InformationOrdered By: Demetrius Fenton on 04-29-2022 Estimated GFR (MDRD) Amer 57 mL/min >60 [facility] Comment on above: GFR Calc Estimated GFR (MDRD) Non-Af Amer 47 mL/min >60 [facility] Comment on above: Non- GFR Calc Platelets bldOrdered By: Miriam Fenton on 04-29-2022 Platelets (Bld) [#/Vol] 165 10*3/uL 150-450 [facility] Serum or plasma calcium roseanne urement (mass/volume)Ordered By: Demetrius Fenton on 04-29-2022 Calcium [Mass/Vol] 8.7 mg/dL 8.5-10.1 [facility] Serum or plasma creatinine m easurement (mass/volume)Ordered By: Demetrius Fenton on 04-29-2022 Creatinine [Mass/Vol] 1.61 mg/dL 0.70-1.30 [facility] Comment on above: The validity of the calculated GFR & GFRAA in patients over 70 years has not been determined. Clinical correlation is essential. Serum or plasma urea nitroge n measurement (mass/volume)Ordered By: Demetrius Fenton on 04-29-2022 Urea nitrogen [Mass/Vol] 30 mg/dL 7-18 [facility] Thin prep Papanicolaou smear with manual screeningOrdered By: Demetrius Fenton on 04-29-2022 Thin prep Papanicolaou smear with manual screening 6 5-15 [facility] Basophil percentageOrdered B y: eDmetrius Fenton on 04-22-2022 Chloride [Moles/Vol] 103 mmol/L 98-[address] [facility] Glucose [Mass/Vol] 154 mg/dL 74-106 [facility] Comment on above: Fasting Glucose resu lt greater than or equal to 126 mg/dL suggests DIABETES MELLITUS per A.D.A. criteria. Potassium [Moles/Vol] 4.9 mmol/L 3.5-5.1 [facility] Sodium [Moles/Vol] 136 mmol/L 136-145 [facility] Laboratory - Chemistry and C hemistry - challengeOrdered By: Demetrius Fenton on 04-22-2022 CO2 [Moles/Vol] 25.0 mmol/L 21.0-32.0 [facility] Urea nitrogen/Creatinine [Mass ratio] 24.3 mg/mg 10-20 [facility] No Panel InformationOrdered By: Demetrius Fenton on 04-22-2022 Estimated GFR (MDRD) Amer 69 mL/min >60 [facility] Comment on above: GFR Calc Estimated GFR (MDRD) Non-Af Amer 57 mL/min >60 [facility] Comment on above: Non- GFR Calc Serum or plasma calcium roseanne urement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 (more content not included)... Normal [facility] Basophil percentageon 2020 Cholesterol [Mass/Vol] 178 mg/dL <200 [facility] Work Phone: Comment on above: <200 mg/dL Desirable 200-240 mg/dL Borderline >240 mg/dL High Risk Triglyceride [Mass/Vol] 166 mg/dL [facility] Work Phone: Comment on above: The drugs N-Acetylcy steine and Metamizole may falsely depress this assay.Serum Triglycerides Reference Interval Normal <150 mg/dL Borderline high 150 - 199 mg/dL High 200 - 499 mg/dL Very High > or = 500 mg/dL Serum or plasma cholesterol in HDL measurement (mass/volume)on 04-06-2021 Cholesterol in HDL [Mass/Vol] 38 mg/dL [facility] Work Phone: Comment on above: The drugs N-Acetylcy steine and Metamizole may falsely depress this assay. Reference Range HDL <40 mg/dL Low HDL Cholesterol HDL >or= 60 mg/dL High HDL Cholesterol Serum or plasma cholesterol in VLDL measurement (mass/volume)on 04-06-2021 Cholesterol in VLDL [Mass/Vol] 33 mg/dL 5-40 [facility] Work Phone: Serum or plasma low density lipoprotein (LDL) cholesterol measurement (mass/volume)on 04-06-2021 Cholesterol in LDL [Mass/Vol] 107 mg/dL 0-130 [facility] Work Phone: CT Cervical Spine WO Contras ton 06-26-2020 Patient Name: MOISES VERONICA Computed Tomography ACCESSION EXAM DATE/TIME PROCEDURE ORDERING PROVIDER [id number] 06/26/2020 18:[address] Spine Cervical w/o LOKI HERNANDEZ Contrast CPT code 08751 Reason For Exam (CT Spine Cervical w/o [...] Phone: [facility], [facility] Incoming Radiology Results From [facility] - 06/26/2020 6:22 PM EDT Patient Name: MOISES MADRID Computed Tomography ACCESSION EXAM DATE/TIME PROCEDURE ORDERING PROVIDER [id number] 06/26/2020 18:[address] Spine Cervical w/o LOKI HERNANDEZ Contrast CPT code 47535 Reason For Exam (CT Spine Cervical w/o [...] WO Contraston 2020 [facility]: [id number] ACCESSION EXAM DATE/TIME PROCEDURE ORDERING PROVIDER [id number] 06/26/2020 18:[address] Head or Brain w/o LOKI HERNANDEZ Contrast CPT code 81615 Reason For Exam (CT Head or Brain [...] Phone: [facility], [facility] Incoming Radiology Results From [facility] - 06/26/2020 6:22 PM EDT Patient Name: MOISES MADRID Computed Tomography ACCESSION EXAM DATE/TIME PROCEDURE ORDERING PROVIDER [id number] 06/26/2020 18:[address] Head or Brain w/o LOKI HERNANDEZ Contrast CPT code 83413 Reason For Exam (CT Head or Brain [...] bodies/material removed: no Skin repair: Repair method: [place] Number of rashida: 7 Approximation: Approximation: Close Post-procedure details: Dressing: Bulky dressing and antibiotic ointment [facility] Work Phone: Basic Metabolic Panelon 11- Anion gap [Moles/Vol] 6 mmol/L [place], [place] Calcium [Mass/Vol] 9.1 mg/dL 8.4 - 10. 4 mg/dL [place], [place] Chloride [Moles/Vol] 105 mmol/L 98 - 10 7 mmol/L [place] CO2 [Moles/Vol] 28 mmol/L 22 - 30 mmol/L [place] Creatinine [Mass/Vol] 0.97 mg/dL 0.52 - 1.25 mg/dL [place] EGFR IF NonAfrican Swedish 86.2 mL/min >60 [place] Comment on above: KDIGO guidelines pro [...] MDRD (S/P/Bld) [Vol rate/Area] mL/min/{1.73_m2} >60 mL/min [place] Glucose [Mass/Vol] 113 mg/dL High 70 - 100 mg/dL [place] Interpretation and review of laboratory results Abnormal [place] Potassium [Moles/Vol] 3.5 mmol/L 3.5 - 5.1 mmol/L [place] Sodium [Moles/Vol] 139 mmol/L 135 - 145 mmol/L [place] Urea nitrogen [Mass/Vol] 14 mg/dL 7 - 20 mg/dL [place] Test Performed by [facility], [facility] [address] , [address] Head WO Contraston 2019 Patient Name: MOISES VERONICA ---CT--- Exam Date/Time 02/19/2020 21:24:[address] Head or Brain w/o Contrast Ordering Physician MELLY LYLES Accession Number [id number] CPT4 Codes 89619 () Reason For Exam hypertensive crisis, frontal [...] MALAY Transcribed Date and Time: 02/19/2020 9:24 [place], [place] Sophia Reardon Incoming Radiology Results From [facility] - 02/19/2020 9:25 PM EST Patient Name: MOISES MADRID ---CT--- Exam Date/Time 02/19/2020 21:24:[address] Head or Brain w/o Contrast Ordering Physician EMLLY LYLES Accession Number [id number] CPT4 Codes 08880 () Reason For Exam hypertensive crisis, frontal [...] MALAY Transcribed Date and Time: 02/19/2020 9:24 [place] Hemogram (CBC)on 02-19-2020 Erythrocyte distribution width (RBC) [Ratio] 13.8 % 11.5 - 14.5 % [place] Hematocrit (Bld) [Volume fraction] 39.9 % Low 40 - 52 % [place] Hemoglobin (Bld) [Mass/Vol] 13.8 g/dL 13 - 18 g/dL [place] Interpretation and review of laboratory results Abnormal [place] MCH (RBC) [Entitic mass] 30.2 pg 26 - 34 pg [place] MCHC (RBC) [Mass/Vol] 34.5 % 32 - 36 % [place], [place] MCV (RBC) [Entitic vol] 87.5 fL 80 - 98 fL [place], [place] Platelet mean volume (Bld) [Entitic vol] 8.9 fL 7.4 - 10.4 fL [place] Platelets (Bld) [#/Vol] 138 10*3/uL Low 140 - 440 10*3/uL [place] RBC (Bld) [#/Vol] 4.56 10*6/uL 4.4 - 5.9 10*6/uL [place] WBC (Bld) [#/Vol] 7.5 10*3/uL 3.6 - 10.7 10*3/uL [place] Test Performed by [facility], [address] , [address] Troponin x1on 02-19-2020 Troponin I.cardiac [Mass/Vol] ng/mL 0 - 0.034 ng/mL [place] Comment on above: . Test Performed by [facility], [address] , [address] Comp Metabolic Panelon 04-05 ALP [Catalytic activity/Vol] 59 U/L Normal 38-126 [facility] Comment on above: Performed By: #### C MP3, HEMOG, LACT3 #### [facility] [address] [place] [address] ALT [Catalytic activity/Vol] 52 U/L Normal 13-69 [facility] Comment on above: Performed By: #### C MP3, HEMOG, LACT3 #### [place] [address] [place] [address] AST [Catalytic activity/Vol] 41 U/L Normal 15-46 [facility] Comment on above: Performed By: #### C MP3, HEMOG, LACT3 #### [place] [address] [place] [address] Calcium [Mass/Vol] 8.5 mg/dL Normal 8.4-10.4 [facility] Comment on above: Performed By: #### C MP3, HEMOG, LACT3 #### [place] [address] [place] [address] Glucose [Mass/Vol] 127 mg/dL High 70-100 [facility] Comment on above: Performed By: #### C MP3, HEMOG, LACT3 #### [place] [address] [place] [address] Urea nitrogen [Mass/Vol] 13 mg/dL Normal 7-20 [facility] Comment on above: Performed By: #### C MP3, HEMOG, LACT3 #### [place] [address] [place] [address] Anion gap [Moles/Vol] 8 Normal [facility] Comment on above: Performed By: #### C MP3, HEMOG, LACT3 #### [place] [address] [place] [address] Bilirubin [Mass/Vol] 0.5 mg/dL Normal 0.2-1.3 [facility] Comment on above: Performed By: #### C MP3, HEMOG, LACT3 #### [facility] [address] [place] [address] CO2 [Moles/Vol] 29 mmol/L Normal 22-30 [facility] Comment on above: Performed By: #### C MP3, HEMOG, LACT3 #### [address] [address] Creatinine [Mass/Vol] 0.83 mg/dL Normal 0.52-1.25 [facility] Comment on above: Performed By: #### C MP3, HEMOG, LACT3 #### [address] [address] GFR/1.73 sq M predicted among blacks MDRD (S/P/Bld) [Vol rate/Area] mL/min/{1.73_m2} Normal >60 [facility] Comment on above: Performed By: #### C MP3, HEMOG, LACT3 #### [address] [address] GFR/1.73 sq M predicted among non-blacks MDRD (S/P/Bld) [Vol rate/Area] mL/min/{1.73_m2} Normal >60 [facility] Comment on above: Result Comment: Sour ce- MDRD equation with creatinine calibration to IDMS(NKDEP) eGFR not recommended for drug dose adjustment Performed By: #### C MP3, HEMOG, LACT3 #### [address] [address] Protein [Mass/Vol] 6.0 g/dL Low 6.3-8.2 [facility] Comment on above: Performed By: #### C MP3, HEMOG, LACT3 #### [address] [address] Potassium [Moles/Vol] 3.2 mmol/L Low 3.5-5.1 [facility] Comment on above: Performed By: #### C MP3, HEMOG, LACT3 #### [address] [address] Sodium [Moles/Vol] 138 mmol/L Normal 135-145 [facility] Comment on above: Performed By: #### C MP3, HEMOG, LACT3 #### [address] [address] Albumin [Mass/Vol] 3.6 g/dL Normal 3.5-5.0 [facility] Comment on above: Performed By: #### C MP3, HEMOG, LACT3 #### [facility] [address] [place] [address] Chloride [Moles/Vol] 102 mmol/L Normal 98-107 [facility] Comment on above: Performed By: #### C MP3, HEMOG, LACT3 #### [facility] [address] [place] [address] Comprehensive Metabolic Pane lOrdered By: Jesús Ellis on 04-05-2019 Albumin [Mass/Vol] 3.6 g/dL 3.5 - 5 g/dL [facility] Work Phone: [phone] ALP [Catalytic activity/Vol] 59 U/L 38 - 126 U/L [facility] Work Phone: [phone] ALT [Catalytic activity/Vol] 52 U/L 13 - 69 U/L [facility] Work Phone: [phone] Anion gap [Moles/Vol] 8 mmol/L [facility] Work Phone: [phone] AST [Catalytic activity/Vol] 41 U/L 15 - 46 U/L [facility] Work Phone: [phone] Bilirubin [Mass/Vol] 0.5 mg/dL 0.2 - 1 .3 mg/dL [facility] Work Phone: [phone] Calcium [Mass/Vol] 8.5 mg/dL 8.4 - 10. 4 mg/dL [facility] Work Phone: [phone] Chloride [Moles/Vol] 102 mmol/L 98 - 10 7 mmol/L [facility] Work Phone: [phone] CO2 [Moles/Vol] 29 mmol/L 22 - 30 mmol/L [facility] Work Phone: [phone] Creatinine [Mass/Vol] 0.83 mg/dL 0.52 - 1.25 mg/dL [facility] Work Phone: [phone] IF NonAfrican Swedish >60.0 >60 mL/min [facility] Work Phone: [phone] Comment on above: Source- MDRD equatio n with creatinine calibration to IDMS(NKDEP) eGFR not recommended for drug dose adjustment GFR/1.73 sq M.predicted among blacks MDRD (S/P/Bld) [Vol rate/Area] mL/min/{1.73_m2} >60 mL/min [facility] Work Phone: Glucose [Mass/Vol] 127 mg/dL High 70 - 100 mg/dL [facility] Work Phone: Interpretation and review of laboratory results Abnormal [facility] Work Phone: [phone] Potassium [Moles/Vol] 3.2 mmol/L Low 3.5 - 5.1 mmol/L [facility] Work Phone: [phone] Protein [Mass/Vol] 6.0 g/dL Low 6.3 - 8.2 g/dL [facility] Work Phone: [phone] Sodium [Moles/Vol] 138 mmol/L 135 - 145 mmol/L [facility] Work Phone: [phone] Urea nitrogen [Mass/Vol] 13 mg/dL 7 - 20 mg/dL [facility] Work Phone: Test Performed by [facility], [address] [place] [address] Work Phone: Hemogramon 04-05-2019 Erythrocyte distribution width (RBC) [Ratio] 13.3 % Normal 11.5-14.5 [facility] Comment on above: Performed By: #### C MP3, HEMOG, LACT3 #### [address] [address] Hematocrit (Bld) [Volume fraction] 43.7 % Normal 40.0-52.0 [facility] Comment on above: Performed By: #### C MP3, HEMOG, LACT3 #### [address] [address] Hemoglobin (Bld) [Mass/Vol] 14.7 g/dL Normal 13.0-18.0 [facility] Comment on above: Performed By: #### C MP3, HEMOG, LACT3 #### [address] [address] MCH (RBC) [Entitic mass] 30.1 pg Normal 26.0-34.0 [facility] Comment on above: Performed By: #### C MP3, HEMOG, LACT3 #### [address] [address] MCHC (RBC) [Mass/Vol] 33.7 % Normal 32.0-36.0 [facility] Comment on above: Performed By: #### C MP3, HEMOG, LACT3 #### [address] [address] MCV (RBC) [Entitic vol] 89.4 fL Normal 80.0-98.0 [facility] Comment on above: Performed By: #### C MP3, HEMOG, LACT3 #### [address] [address] Platelet mean volume (Bld) [Entitic vol] 8.6 fL Normal 7.4-10.4 [facility] Comment on above: Performed By: #### C MP3, HEMOG, LACT3 #### [address] [address] Platelets (Bld) [#/Vol] 166 10*3/uL Normal 140-440 [facility] Comment on above: Performed By: #### C MP3, HEMOG, LACT3 #### [address] [address] RBC (Bld) [#/Vol] 4.89 10*6/uL Normal 4.40-5.90 [facility] Comment on above: Performed By: #### C MP3, HEMOG, LACT3 #### [address] [address] WBC (Bld) [#/Vol] 7.7 10*3/uL Normal 3.6-10.7 [facility] Comment on above: Performed By: #### C MP3, HEMOG, LACT3 #### [address] [address] Hemogram (CBC)Ordered By: Luz Ellis on 04-05-2019 Erythrocyte distribution width (RBC) [Ratio] 13.3 % 11.5 - 14.5 % [facility] Work Phone: Hematocrit (Bld) [Volume fraction] 43.7 % 40 - 52 % [facility] Work Phone: Hemoglobin (Bld) [Mass/Vol] 14.7 g/dL 13 - 18 g/dL [facility] Work Phone: 1 MCH (RBC) [Entitic mass] 30.1 pg 26 - 34 pg [facility] Work Phone: 1 MCHC 33.7 % 32 - 36 % [facility] Work Phone: 1 MCV (RBC) [Entitic vol] 89.4 fL 80 - 98 fL [facility] Work Phone: 1 Platelet mean volume (Bld) [Entitic vol] 8.6 fL 7.4 - 10.4 fL [facility] Work Phone: 1 Platelets (Bld) [#/Vol] 166 10*3/uL 140 - 440 10*3/uL [facility] Work Phone: 1 RBC (Bld) [#/Vol] 4.89 10*6/uL 4.4 - 5.9 10*6/uL [facility] Work Phone: 1 WBC (Bld) [#/Vol] 7.7 10*3/uL 3.6 - 10.7 10*3/uL [facility] Work Phone: [phone] Test Performed by [facility], [address] [place] [address] [facility] Work Phone: [phone] Lactic Acidon 04-05-2019 Lactate [Moles/Vol] 2.6 mmol/L Critically high 0.7-2.0 [facility] Comment on above: Performed By: #### C MP3, HEMOG, LACT3 #### [facility] [address] [place] [address] Lactic Acid, PlasmaOrdered B y: Jesús Ellis on 04-05-2019 Interpretation and review of laboratory results Abnormal [facility] Work Phone: [phone] Lactate [Moles/Vol] 2.6 mmol/L Critically high 0.7 - 2 mmol/L [facility] Work Phone: [phone] Test Performed by [facility], [address] [place] [address] [facility] Work Phone: [phone] Vital Signs Date Time Vital Sign Value Performing Clinician Facility 07-08-2024 11:55-0400 Body height 182.9 cm Chhaya Saldana MD Work Phone: [facility] 07-08-2024 11:55-0400 Body mass index (BMI) [Ratio] 31.99 kg/m2 Chhaya Saldana MD Work Phone: [facility] 07-08-2024 11:55-0400 Body weight 107 kg Chhaya Saldana MD Work Phone: [facility] 07-08-2024 11:55-0400 Diastolic blood pressure 75 mm[Hg] Chhaya Saldana MD Work Phone: [facility] 07-08-2024 11:55-0400 Heart rate 83 /min Chhaya Saldana MD Work Phone: [facility] 07-08-2024 11:55-0400 SaO2% (BldA) [Mass fraction] 97 % Chhaya Saldana MD Work Phone: [facility] 07-08-2024 11:55-0400 Systolic blood pressure 114 mm[Hg] Chhaya Saldana MD Work Phone: [facility] 04-09-2024 13:42-0500 Body temperature 96.91 [degF] Danielle Arreola DPM Work Phone: [facility] 04-09-2024 13:42-0500 Diastolic blood pressure 88 mm[Hg] Danielle Arreola DPM Work Phone: [facility] 04-09-2024 13:42-0500 Heart rate 83 /min Danielle Arreola DPM Work Phone: [facility] 04-09-2024 13:42-0500 Respiratory rate 18 /min Danielle Arreola DPM Work Phone: [facility] 04-09-2024 13:42-0500 Systolic blood pressure 124 mm[Hg] Danielle Arreola DPM Work Phone: [facility] 03-27-2024 14:58-0500 Body temperature 97.9 [degF] Julissa Taylor DO Work Phone: [facility] 03-27-2024 14:58-0500 Diastolic blood pressure 75 mm[Hg] Julissa Claudia DO Work Phone: [facility] 03-27-2024 14:58-0500 Heart rate 54 /min Julissa Claudia DO Work Phone: [facility] 03-27-2024 14:58-0500 Respiratory rate 18 /min Julissa Claudia DO Work Phone: [facility] 03-27-2024 14:58-0500 Systolic blood pressure 116 mm[Hg] Julissa Claudia DO Work Phone: [facility] 03-13-2024 13:57-0500 Body temperature 97.81 [degF] Julissa Claudia DO Work Phone: [facility] 03-13-2024 13:57-0500 Diastolic blood pressure 77 mm[Hg] Julissa Claudia DO Work Phone: [facility] 03-13-2024 13:57-0500 Heart rate 75 /min Julissa Claudia DO Work Phone: [facility] 03-13-2024 13:57-0500 Respiratory rate 20 /min Julissa Claudia DO Work Phone: [facility] 03-13-2024 13:57-0500 Systolic blood pressure 135 mm[Hg] Julissa Claudia DO Work Phone: [facility] 03-06-2024 10:37-0500 Body temperature 97.7 [degF] Anai Brown ASSET COORDINATOR - FUNERAL DIRECTOR Work Phone: [facility] 03-06-2024 10:37-0500 Diastolic blood pressure 73 mm[Hg] Anai Brown ASSET COORDINATOR - FUNERAL DIRECTOR Work Phone: [facility] 03-06-2024 10:37-0500 Heart rate 82 /min Anai Brown ASSET COORDINATOR - FUNERAL DIRECTOR Work Phone: [facility] 03-06-2024 10:37-0500 Respiratory rate 18 /min Anai Brown ASSET COORDINATOR - FUNERAL DIRECTOR Work Phone: [facility] 03-06-2024 10:37-0500 Systolic blood pressure 101 mm[Hg] Anai Brown ASSET COORDINATOR - FUNERAL DIRECTOR Work Phone: [facility] 02-28-2024 09:41-0500 Body temperature 97.11 [degF] Julissa Claudia DO Work Phone: [facility] 02-28-2024 09:41-0500 Diastolic blood pressure 72 mm[Hg] Julissa Claudia DO Work Phone: [facility] 02-28-2024 09:41-0500 Heart rate 60 /min Julissa Claudia DO Work Phone: [facility] 02-28-2024 09:41-0500 Respiratory rate 20 /min Julissa Claudia DO Work Phone: [facility] 02-28-2024 09:41-0500 Systolic blood pressure 133 mm[Hg] Julissa Claudia DO Work Phone: [facility] 02-21-2024 09:56-0500 Body temperature 97.2 [degF] Julissa Claudia DO Work Phone: [facility] 02-21-2024 09:56-0500 Diastolic blood pressure 72 mm[Hg] Julissa Claudia DO Work Phone: [facility] 02-21-2024 09:56-0500 Heart rate 79 /min Julissa Claudia DO Work Phone: [facility] 02-21-2024 09:56-0500 Respiratory rate 18 /min Julissa Claudia DO Work Phone: [facility] 02-21-2024 09:56-0500 Systolic blood pressure 113 mm[Hg] Julissa Claudia DO Work Phone: [facility] 02-18-2024 03:11-0500 Diastolic blood pressure 72 mm[Hg] Kaylee Bunch MD Work Phone: [facility] 02-18-2024 03:11-0500 Heart rate 88 /min Kaylee Bunch MD Work Phone: [facility] 02-18-2024 03:11-0500 Respiratory rate 16 /min Kaylee Bunch MD Work Phone: [facility] 02-18-2024 03:11-0500 SaO2% (BldA) [Mass fraction] 99 % Kaylee Bunch MD Work Phone: [facility] 02-18-2024 03:11-0500 Systolic blood pressure 103 mm[Hg] Kaylee Bunch MD Work Phone: [facility] 02-18-2024 01:02-0500 Body temperature 97.7 [degF] Kaylee Bunch MD Work Phone: [facility] 02-14-2024 08:43-0500 Body temperature 97.2 [degF] Julissa Claudia DO Work Phone: [facility] 02-14-2024 08:43-0500 Diastolic blood pressure 82 mm[Hg] Julissa Claudia DO Work Phone: [facility] 02-14-2024 08:43-0500 Heart rate 80 /min Julissa Claudia DO Work Phone: [facility] 02-14-2024 08:43-0500 Respiratory rate 18 /min Julissa Claudia DO Work Phone: [facility] 02-14-2024 08:43-0500 Systolic blood pressure 122 mm[Hg] Julissa Claudia DO Work Phone: [facility] 02-07-2024 09:15-0400 Body temperature 97.81 [degF] Julissa Claudia DO Work Phone: [employer] [facility] 02-07-2024 09:15-0400 Diastolic blood pressure 69 mm[Hg] Julissa Claudia DO Work Phone: [employer] [facility] 02-07-2024 09:15-0400 Heart rate 89 /min Julissa Claudia DO Work Phone: [employer] [facility] 02-07-2024 09:15-0400 Respiratory rate 18 /min Julissa Claudia DO Work Phone: [facility] 02-07-2024 09:15-0400 Systolic blood pressure 100 mm[Hg] Julissa Claudia DO Work Phone: [facility] 01-31-2024 08:18-0400 Body temperature 97.11 [degF] Julissa Claudia DO Work Phone: [facility] 01-31-2024 08:18-0400 Diastolic blood pressure 74 mm[Hg] Julissa Claudia DO Work Phone: [facility] 01-31-2024 08:18-0400 Heart rate 89 /min Julissa Claudia DO Work Phone: [facility] 01-31-2024 08:18-0400 Respiratory rate 18 /min Julissa Claudia DO Work Phone: [facility] 01-31-2024 08:18-0400 Systolic blood pressure 106 mm[Hg] Julissa Claudia DO Work Phone: [facility] 01-24-2024 10:12-0400 Body temperature 96.8 [degF] Julissa Claudia DO Work Phone: [facility] 01-24-2024 10:12-0400 Diastolic blood pressure 78 mm[Hg] Julissa Claudia DO Work Phone: [facility] 01-24-2024 10:12-0400 Heart rate 89 /min Julissa Claudia DO Work Phone: [facility] 01-24-2024 10:12-0400 Respiratory rate 18 /min Julissa Claudia DO Work Phone: [facility] 01-24-2024 10:12-0400 Systolic blood pressure 110 mm[Hg] Julissa Claudia DO Work Phone: [facility] 01-17-2024 09:53-0400 Body temperature 97.5 [degF] Julissa Claudia DO Work Phone: [facility] 01-17-2024 09:53-0400 Diastolic blood pressure 93 mm[Hg] Julissa Claudia DO Work Phone: [facility] 01-17-2024 09:53-0400 Heart rate 91 /min Julissa Claudia DO Work Phone: [facility] 01-17-2024 09:53-0400 Respiratory rate 20 /min Julissa Claudia DO Work Phone: [facility] 01-17-2024 09:53-0400 Systolic blood pressure 131 mm[Hg] Julissa Claudia DO Work Phone: [facility] 01-10-2024 09:29-0400 Body temperature 97.3 [degF] Julissa Claudia DO Work Phone: [facility] 01-10-2024 09:29-0400 Diastolic blood pressure 78 mm[Hg] Julissa Claudia DO Work Phone: [facility] 01-10-2024 09:29-0400 Heart rate 92 /min Julissa Claudia DO Work Phone: [facility] 01-10-2024 09:29-0400 Respiratory rate 18 /min Julissa Claudia DO Work Phone: [facility] 01-10-2024 09:29-0400 Systolic blood pressure 121 mm[Hg] Julissa Claudia DO Work Phone: [facility] 01-03-2024 15:08-0400 Body temperature 97.81 [degF] Julissa Claudia DO Work Phone: [facility] 01-03-2024 15:08-0400 Diastolic blood pressure 66 mm[Hg] Julissa Claudia DO Work Phone: [facility] 01-03-2024 15:08-0400 Heart rate 76 /min Julissa Claudia DO Work Phone: [facility] 01-03-2024 15:08-0400 Respiratory rate 18 /min Julissa Claudia DO Work Phone: [facility] 01-03-2024 15:08-0400 Systolic blood pressure 100 mm[Hg] Julissa Claudia DO Work Phone: [facility] 12-27-2023 13:43-0400 Body temperature 97.5 [degF] Julissa Claudia DO Work Phone: [facility] 12-27-2023 13:43-0400 Diastolic blood pressure 65 mm[Hg] Julissa Claudia DO Work Phone: [facility] 12-27-2023 13:43-0400 Heart rate 62 /min Julissa Claudia DO Work Phone: [facility] 12-27-2023 13:43-0400 Respiratory rate 18 /min Julissa Claudia DO Work Phone: [facility] 12-27-2023 13:43-0400 Systolic blood pressure 111 mm[Hg] Julissa Claudia DO Work Phone: [facility] 12-20-2023 11:10-0400 Body temperature 98.01 [degF] Julissa Claudia DO Work Phone: [facility] 12-20-2023 11:10-0400 Diastolic blood pressure 74 mm[Hg] Julissa Claudia DO Work Phone: [facility] 12-20-2023 11:10-0400 Heart rate 64 /min Julissa Claudia DO Work Phone: [facility] 12-20-2023 11:10-0400 Respiratory rate 18 /min Julissa Claudia DO Work Phone: [facility] 12-20-2023 11:10-0400 Systolic blood pressure 108 mm[Hg] Julissa Claudia DO Work Phone: [facility] 12-13-2023 15:19-0400 Body temperature 97.5 [degF] Julissa Claudia DO Work Phone: [facility] 12-13-2023 15:19-0400 Diastolic blood pressure 68 mm[Hg] Julissa Claudia DO Work Phone: [facility] 12-13-2023 15:19-0400 Heart rate 62 /min Ujlissa Claudia DO Work Phone: [facility] 12-13-2023 15:19-0400 Systolic blood pressure 109 mm[Hg] Julissa Claudia DO Work Phone: [employer] [facility] 12-06-2023 10:53-0400 Body temperature 97.9 [degF] Julissa Claudia DO Work Phone: [employer] [facility] 12-06-2023 10:53-0400 Diastolic blood pressure 63 mm[Hg] Julissa Claudia DO Work Phone: [facility] 12-06-2023 10:53-0400 Heart rate 62 /min Julissa Claudia DO Work Phone: [employer] [facility] 12-06-2023 10:53-0400 Respiratory rate 18 /min Julissa Claudia DO Work Phone: [facility] 12-06-2023 10:53-0400 Systolic blood pressure 94 mm[Hg] Julissa Claudia DO Work Phone: [facility] 11-29-2023 10:35-0400 Body temperature 97.11 [degF] Julissa Claudia DO Work Phone: [employer] [facility] 11-29-2023 10:35-0400 Diastolic blood pressure 73 mm[Hg] Julissa Claudia DO Work Phone: [facility] 11-29-2023 10:35-0400 Heart rate 66 /min Julissa Claudia DO Work Phone: [employer] [facility] 11-29-2023 10:35-0400 Systolic blood pressure 114 mm[Hg] Julissa Claudia DO Work Phone: [employer] [facility] 11-22-2023 10:57-0400 Body temperature 97.39 [degF] Julissa Claudia DO Work Phone: [employer] [facility] 11-22-2023 10:57-0400 Diastolic blood pressure 75 mm[Hg] Julissa Claudia DO Work Phone: [employer] [facility] 11-22-2023 10:57-0400 Heart rate 79 /min Julissa Claudia DO Work Phone: [employer] [facility] 11-22-2023 10:57-0400 Systolic blood pressure 106 mm[Hg] Julissa Claudia DO Work Phone: [facility] 11-17-2023 10:35-0400 Body temperature 97.11 [degF] [facility] Schedule [facility] 11-17-2023 10:35-0400 Diastolic blood pressure 83 mm[Hg] [facility] Schedule [facility] 11-17-2023 10:35-0400 Heart rate 81 /min [facility] 11-17-2023 10:35-0400 Respiratory rate 18 /min [facility] 11-17-2023 10:35-0400 Systolic blood pressure 119 mm[Hg] [facility] 11-15-2023 11:07-0400 Body temperature 97.59 [degF] Julissa Claudia DO Work Phone: [facility] 11-15-2023 11:07-0400 Diastolic blood pressure 69 mm[Hg] Julissa Claudia DO Work Phone: [facility] 11-15-2023 11:07-0400 Heart rate 62 /min Julissa Claudia DO Work Phone: [facility] 11-15-2023 11:07-0400 Respiratory rate 18 /min Julissa Claudia DO Work Phone: [facility] 11-15-2023 11:07-0400 Systolic blood pressure 102 mm[Hg] Julissa Claudia DO Work Phone: [facility] 11-08-2023 09:45-0400 Body temperature 98.29 [degF] Julissa Claudia DO Work Phone: [facility] 11-08-2023 09:45-0400 Diastolic blood pressure 71 mm[Hg] Julissa Claudia DO Work Phone: [facility] 11-08-2023 09:45-0400 Heart rate 91 /min Julissa Claudia DO Work Phone: [facility] 11-08-2023 09:45-0400 Respiratory rate 20 /min Julissa Claudia DO Work Phone: [facility] 11-08-2023 09:45-0400 Systolic blood pressure 140 mm[Hg] Julissa Claudia DO Work Phone: [facility] 11-01-2023 08:53-0400 Body temperature 98.01 [degF] Julissa Claudia DO Work Phone: [facility] 11-01-2023 08:53-0400 Diastolic blood pressure 75 mm[Hg] Julissa Claudia DO Work Phone: [facility] 11-01-2023 08:53-0400 Heart rate 155 /min Julissa Claudia DO Work Phone: [facility] 11-01-2023 08:53-0400 Respiratory rate 18 /min Julissa Claudia DO Work Phone: [facility] 11-01-2023 08:53-0400 Systolic blood pressure 101 mm[Hg] Julissa Claudia DO Work Phone: [facility] 10-25-2023 08:51-0400 Body temperature 96.8 [degF] Julissa Claudia DO Work Phone: [facility] 10-25-2023 08:51-0400 Diastolic blood pressure 74 mm[Hg] Julissa Claudia DO Work Phone: [facility] 10-25-2023 08:51-0400 Heart rate 63 /min Julissa Claudia DO Work Phone: [facility] 10-25-2023 08:51-0400 Respiratory rate 18 /min Julissa Claudia DO Work Phone: [facility] 10-25-2023 08:51-0400 Systolic blood pressure 119 mm[Hg] Julissa Claudia DO Work Phone: [facility] 10-18-2023 10:30-0400 Body temperature 97.2 [degF] Julissa Claudia DO Work Phone: [facility] 10-18-2023 10:30-0400 Diastolic blood pressure 94 mm[Hg] Julissa Claudia DO Work Phone: [facility] 10-18-2023 10:30-0400 Heart rate 69 /min Julissaamanda Nelsone DO Work Phone: [facility] 10-18-2023 10:30-0400 Respiratory rate 18 /min Julissa Claudia DO Work Phone: [facility] 10-18-2023 10:30-0400 Systolic blood pressure 139 mm[Hg] Julissa Claudia DO Work Phone: [facility] 10-11-2023 08:55-0400 Body temperature 97.5 [degF] Julissa Claudia DO Work Phone: [facility] 10-11-2023 08:55-0400 Diastolic blood pressure 79 mm[Hg] Julissa Claudia DO Work Phone: [facility] 10-11-2023 08:55-0400 Heart rate 79 /min Julissa Claudia DO Work Phone: [facility] 10-11-2023 08:55-0400 Respiratory rate 18 /min Julissa Claudia DO Work Phone: [facility] 10-11-2023 08:55-0400 Systolic blood pressure 122 mm[Hg] Julissa Claudia DO Work Phone: [facility] 10-04-2023 13:55-0400 Body height 177.8 cm Julissa Claudia DO Work Phone: [facility] 10-04-2023 13:55-0400 Body mass index (BMI) [Ratio] 36.3 kg/m2 Julissa Claudia DO Work Phone: [facility] 10-04-2023 13:55-0400 Body temperature 97.7 [degF] Julissa Claudia DO Work Phone: [facility] 10-04-2023 13:55-0400 Body weight 114.76 kg Julissa Claudia DO Work Phone: [facility] 10-04-2023 13:55-0400 Diastolic blood pressure 70 mm[Hg] Julissa Claudia DO Work Phone: [facility] 10-04-2023 13:55-0400 Heart rate 79 /min Julissaamanda Nelsone DO Work Phone: [facility] 10-04-2023 13:55-0400 Systolic blood pressure 110 mm[Hg] Julissa Claudia DO Work Phone: [facility] 09-27-2023 13:13-0400 Body height 177.8 cm Julissaamanda Nelsone DO Work Phone: [facility] 09-27-2023 13:13-0400 Body mass index (BMI) [Ratio] 36.3 kg/m2 Julissaamanda Nelsone DO Work Phone: [facility] 09-27-2023 13:13-0400 Body temperature 97.7 [degF] Julissaamanda Nelsone DO Work Phone: [facility] 09-27-2023 13:13-0400 Body weight 114.76 kg Julissaamanda Nelsone DO Work Phone: [facility] 09-27-2023 13:13-0400 Diastolic blood pressure 63 mm[Hg] Julissaamanda Nelsone DO Work Phone: [facility] 09-27-2023 13:13-0400 Heart rate 88 /min Julissaamanda Nelsone DO Work Phone: [facility] 09-27-2023 13:13-0400 Systolic blood pressure 94 mm[Hg] Julissaamanda Nelsone DO Work Phone: [facility] 09-20-2023 14:34-0400 Body height 177.8 cm Julissa Nelsone DO Work Phone: [facility] 09-20-2023 14:34-0400 Body mass index (BMI) [Ratio] 36.3 kg/m2 Julissaamanda Nelsone DO Work Phone: [facility] 09-20-2023 14:34-0400 Body temperature 97.2 [degF] Julissaamanda Nelsone DO Work Phone: [facility] 09-20-2023 14:34-0400 Body weight 114.76 kg Julissaamanda Nelsone DO Work Phone: [facility] 09-20-2023 14:34-0400 Diastolic blood pressure 75 mm[Hg] Julissa Claudia DO Work Phone: [facility] 09-20-2023 14:34-0400 Heart rate 71 /min Julissa Claudia DO Work Phone: [facility] 09-20-2023 14:34-0400 Systolic blood pressure 115 mm[Hg] Julissa Claudia DO Work Phone: [facility] 09-13-2023 14:17-0400 Body temperature 97.5 [degF] Julissa Claudia DO Work Phone: [facility] 09-13-2023 14:17-0400 Diastolic blood pressure 60 mm[Hg] Julissa Claudia DO Work Phone: [facility] 09-13-2023 14:17-0400 Heart rate 58 /min Julissa Claudia DO Work Phone: [facility] 09-13-2023 14:17-0400 Respiratory rate 20 /min Julissa Claudia DO Work Phone: [facility] 09-13-2023 14:17-0400 Systolic blood pressure 105 mm[Hg] Julissa Claudia DO Work Phone: [facility] 09-06-2023 13:34-0400 Body height 177.8 cm Julissa Claudia DO Work Phone: [facility] 09-06-2023 13:34-0400 Body mass index (BMI) [Ratio] 36.3 kg/m2 Julissa Claudia DO Work Phone: [facility] 09-06-2023 13:34-0400 Body temperature 97.59 [degF] Julissaamanda Nelsone DO Work Phone: [facility] 09-06-2023 13:34-0400 Body weight 114.76 kg Julissa Claudia DO Work Phone: [facility] 09-06-2023 13:34-0400 Diastolic blood pressure 80 mm[Hg] Julissa Claudia DO Work Phone: [facility] 09-06-2023 13:34-0400 Heart rate 57 /min Julissaamanda Nelsone DO Work Phone: [facility] 09-06-2023 13:34-0400 Systolic blood pressure 119 mm[Hg] Julissa Claudia DO Work Phone: [facility] 08-30-2023 09:20-0400 Body height 177.8 cm Julissa Claudia DO Work Phone: [facility] 08-30-2023 09:20-0400 Body mass index (BMI) [Ratio] 36.3 kg/m2 Julissaamanda Nelsone DO Work Phone: [facility] 08-30-2023 09:20-0400 Body temperature 97.39 [degF] Julissa Claudia DO Work Phone: [facility] 08-30-2023 09:20-0400 Body weight 114.76 kg Julissa Claudia DO Work Phone: [facility] 08-30-2023 09:20-0400 Diastolic blood pressure 86 mm[Hg] Julissaamanda Nelsone DO Work Phone: [facility] 08-30-2023 09:20-0400 Heart rate 79 /min Julissa Claudia DO Work Phone: [facility] 08-30-2023 09:20-0400 Systolic blood pressure 126 mm[Hg] Julissa Claudia DO Work Phone: [facility] 08-23-2023 14:03-0400 Body mass index (BMI) [Ratio] 36.3 kg/m2 Julissa Claudia DO Work Phone: [facility] 08-23-2023 14:03-0400 Body temperature 98.2 [degF] Julissa Claudia DO Work Phone: [facility] 08-23-2023 14:03-0400 Body weight 114.76 kg Julissa Claudia DO Work Phone: [facility] 08-23-2023 14:03-0400 Diastolic blood pressure 67 mm[Hg] Julissa Claudia DO Work Phone: [facility] 08-23-2023 14:03-0400 Heart rate 82 /min Julissaamanda Taylor DO Work Phone: [facility] 08-23-2023 14:03-0400 Respiratory rate 18 /min Julissa Tyalor DO Work Phone: [facility] 08-23-2023 14:03-0400 Systolic blood pressure 93 mm[Hg] Julissaamanda Nelsone DO Work Phone: [facility] 06-23-2023 03:03-0400 Diastolic blood pressure 90 mm[Hg] Fred Holloway MD Work Phone: [facility] 06-23-2023 03:03-0400 Heart rate 81 /min Fred Holloway MD Work Phone: [facility] 06-23-2023 03:03-0400 Respiratory rate 14 /min Fred Holloway MD Work Phone: [facility] 06-23-2023 03:03-0400 SaO2% (BldA) [Mass fraction] 96 % Fred Holloway MD Work Phone: [facility] 06-23-2023 03:03-0400 Systolic blood pressure 153 mm[Hg] Fred Holloway MD Work Phone: [facility] 06-22-2023 21:52-0400 Body height 177.8 cm Fred Holloway MD Work Phone: [facility] 06-22-2023 21:52-0400 Body temperature 97.9 [degF] Fred Holloway MD Work Phone: [facility] 06-16-2023 14:09-0500 Diastolic blood pressure 68 mm[Hg] Chhaya Saldana MD Work Phone: [facility] 06-16-2023 14:09-0500 Heart rate 56 /min Chhaya Saldana MD Work Phone: [facility] 06-16-2023 14:09-0500 SaO2% (BldA) [Mass fraction] 96 % Chhaya Saldana MD Work Phone: [facility] 06-16-2023 14:09-0500 Systolic blood pressure 93 mm[Hg] Chhaya Saldana MD Work Phone: [facility] 11-17-2022 13:14-0400 Body height 185.4 cm Jesús Ellis MD Work Phone: [facility] 11-17-2022 13:14-0400 Body mass index (BMI) [Ratio] 33.38 kg/m2 Jesús Ellis MD Work Phone: [facility] 11-17-2022 13:14-0400 Body temperature 97.9 [degF] Jesús Ellis MD Work Phone: [facility] 11-17-2022 13:14-0400 Body weight 114.76 kg Jesús Ellis MD Work Phone: [facility] 11-17-2022 13:14-0400 Diastolic blood pressure 80 mm[Hg] Jesús Ellis MD Work Phone: [facility] 11-17-2022 13:14-0400 Heart rate 57 /min Jesús Ellis MD Work Phone: [facility] 11-17-2022 13:14-0400 Respiratory rate 16 /min Jesús Ellis MD Work Phone: [facility] 11-17-2022 13:14-0400 SaO2% (BldA) [Mass fraction] 96 % Jesús Ellis MD Work Phone: [facility] 11-17-2022 13:14-0400 Systolic blood pressure 125 mm[Hg] Jesús Ellis MD Work Phone: [facility] 11-16-2022 09:51-0400 Body mass index (BMI) [Ratio] 32.14 kg/m2 Josette Diaz PA-C Work Phone: [facility] 11-16-2022 09:51-0400 Body temperature 98.01 [degF] Josette Diaz PA-C Work Phone: [facility] 11-16-2022 09:51-0400 Body weight 107.5 kg Josette Diaz PA-C Work Phone: [facility] 11-16-2022 09:51-0400 Diastolic blood pressure 60 mm[Hg] Josette Mccarthyson PA-C Work Phone: [facility] 11-16-2022 09:51-0400 Heart rate 60 /min Josette Mccarthyson PA-C Work Phone: [facility] 11-16-2022 09:51-0400 Systolic blood pressure 90 mm[Hg] Josette Mccarthyson PA-C Work Phone: [facility] 07-29-2022 11:58-0400 Body temperature 98.2 [degF] Brady Powell MD Work Phone: [facility] 07-29-2022 11:58-0400 Diastolic blood pressure 56 mm[Hg] Brady Powell MD Work Phone: [facility] 07-29-2022 11:58-0400 Heart rate 68 /min Brady Powell MD Work Phone: [facility] 07-29-2022 11:58-0400 Systolic blood pressure 102 mm[Hg] Brady Powell MD Work Phone: [facility] 06-23-2022 13:05-0400 Body height 188 cm Tresa Smallwood DO Work Phone: [facility] 06-23-2022 12:03-0400 Body temperature 98.91 [degF] Tresa Smallwood DO Work Phone: [facility] 06-23-2022 12:03-0400 Diastolic blood pressure 95 mm[Hg] Tresa Smallwood DO Work Phone: [facility] 06-23-2022 12:03-0400 Heart rate 97 /min Tresa Smallwood DO Work Phone: [facility] 06-23-2022 12:03-0400 Respiratory rate 18 /min Tresa Smallwood DO Work Phone: [employer] 06-23-2022 12:03-0400 SaO2% (BldA) [Mass fraction] 95 % Tresa Smallwood DO Work Phone: [employer] 06-23-2022 12:03-0400 Systolic blood pressure 127 mm[Hg] Tresa Smallwood DO Work Phone: [employer] 06-22-2022 06:00-0400 Body mass index (BMI) [Ratio] 31.83 kg/m2 Tresa Smallwood DO Work Phone: [employer] 06-22-2022 06:00-0400 Body weight 112.5 kg Tresa Smallwood DO Work Phone: [employer] 06-16-2022 09:44-0500 SaO2% (BldA) [Mass fraction] 94.0 % Tresa Smallwood DO Work Phone: [employer] 06-26-2020 19:13-0400 BP Diastolic 92 mm[Hg] Loki [...] 02-19-2020 20:13-0500 Body Temperature 98.2 [degF] [facility] [place] [place] [facility]-19-[facility] 20:13-0500 BP [facility]astolic 84 mm[facility]Hg[facility] [place] [facility] [place] 02-19-2020 20:13-0500 BP Systolic 146 mm[Hg] Melly Serrano [facility] [place] , [place] 02-19-2020 20:13-0500 Pulse (Heart Rate) 85 /min Melly Serrano [facility] [place], [place] 02-19-2020 20:13-0500 Pulse Oximetry 95 % Melly Serrano [facility] [place] , [place] 02-19-2020 20:13-0500 Respiratory Rate 18 /min Melly Serrano [facility] [place] 04-05-2019 17:19-0500 Diastolic blood pressure 76 mm[Hg] Jesús Ellis MD Work Phone: [facility] Work Phone: 04-05-2019 17:19-0500 Respiratory rate [...] 97.81 [degF] Jesús Ellis MD Work Phone: [facility] Work Phone: 04-05-2019 13:20-0500 Body weight 112.49 kg Jesús Ellis MD Work Phone: [employer] Work Phone: Encounters Encounter Date Encounter Type Care Provider Facility Start: 01-13-2025 End: 01-13-2025 ambulatory DEMETRIUS FENTON Facility:[facility] Start: 01-13-2025 Registered Referred Demetrius Fenton - [place] [employer] Start: 01-13-2025 End: 01-13-2025 ambulatory Demetrius WICK Facility:[facility] Start: 01-07-2025 Registered Referred Demetrius Fenton - [place] [employer] Start: 01-07-2025 End: 01-07-2025 ambulatory Demetrius WICK Facility:[facility] Start: 12-10-2024 Registered Referred Demetrius Fenton - [place] [employer] Start: 12-10-2024 End: 12-10-2024 ambulatory Demetrius WICK Facility:[facility] Start: 12-05-2024 End: 12-05-2024 ambulatory Gunnar WICK -[place] [employer] Start: 12-05-2024 End: 12-05-2024 Departed Referred Demetrius Fenton -[place] [employer] Start: 12-05-2024 End: 12-05-2024 ambulatory Demetrius WICK Facility:[facility] Start: 10-21-2024 ambulatory Gunnar WICK Fac ility:[facility] Start: 10-21-2024 Registered Referred Gunnar Cummings -[place] [employer] [facility] Start: 09-20-2024 ambulatory Demetrius WICK Faci lity:[facility] Start: 07-29-2024 End: 07-29-2024 ambulatory Demetrius WICK [facility] Work Phone: Start: 07-29-2024 End: 07-29-2024 Departed Referred Demetrius Fenton -[facility] [employer] [facility] Start: 07-29-2024 Registered Referred Demetrius Fenton - [place] [employer] Start: 07-29-2024 End: 07-29-2024 ambulatory Demetrius WICK Facility:[facility] Start: 07-22-2024 End: 07-22-2024 ambulatory Demetrius WICK [facility] Work Phone: Start: 07-22-2024 End: 07-22-2024 Departed Referred Demetrius ZUNIGA Start: 07-22-2024 Registered Referred Demetrius Lilliesunday Dominique [place] [facility] Start: 07-22-2024 End: 07-22-2024 ambulatory Demetrius Suzy WICK Facility:[facility] Start: 07-08-2024 End: 07-08-2024 Patient encounter procedure Chhaya Saldana MD Work Phone: Neurology Comment on above: Chronic daily headac he (Primary Dx); Traumatic brain injury with loss of consciousness, sequela Start: 07-08-2024 End: 07-08-2024 ambulatory Demetrius WICK [facility] Work Phone: Start: 07-08-2024 End: 07-08-2024 Departed Referred Demetrius ZUNIGA Start: 07-08-2024 Registered Referred Demetrius ZUNIGA Start: 07-08-2024 End: 07-08-2024 ambulatory Demetrius Lilliesunday WICK Facility:[facility] Start: 06-10-2024 End: 06-10-2024 ambulatory Demetrius WICK [facility] Work Phone: Start: 06-10-2024 End: 06-10-2024 Departed Referred Demetrius ZUNIGA Start: 06-10-2024 End: 06-10-2024 ambulatory Demetrius WICK Facility:[facility] Start: 04-09-2024 End: 04-09-2024 Office outpatient visit 15 minutes Danielle Arreola DPM Work Phone: [facility] [...] Start: 04-09-2024 End: 04-09-2024 ambulatory DEMETRIUS FENTON [facility] Start: 03-27-2024 End: 03-27-2024 Office outpatient visit 15 minutes Julissa Taylor DO Work Phone: [facility] [place] Comment on above: Non-pressure chronic ulcer of 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) (Primary Dx); Peripheral venous insufficiency [I87.2] Start: 03-27-2024 End: 03-27-2024 ambulatory DEMETRIUS FENTON [facility] Start: 03-20-2024 End: 03-20-2024 [facility] Start: 03-18-2024 ambulatory Demetrius Fenton [facility] Faci lity:[facility] Start: 03-13-2024 End: 03-13-2024 Subsequent hospital visit by physician Julissa Taylor DO Work Phone: [facility] Dominique Gar Comment on above: Arrived Start: 03-13-2024 End: 03-13-2024 ambulatory DEMETRIUS HAMMERSUNDAY [facility] Start: 03-13-2024 ambulatory Demetrius Fenton O[facility] Faci lity:[facility] Start: 03-13-2024 Registered Ref[place]us [place] [facility] Start: 03-06-2024 End: 03-06-2024 Subsequent hospital visit by physician Anai Fox CNP Work Phone: [facility] [...] [I87.2] Start: 03-06-2024 End: 03-06-2024 ambulatory [facility] Start: 02-28-2024 End: 02-28-2024 Subsequent hospital visit by physician Julissa Taylor DO Work Phone: [facility] [place] Comment on above: Non-pressure chronic ulcer of other part of right foot with fat layer 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) (Primary Dx); Non-pressure chronic ulcer left lower leg, limited to breakdown skin (HCC); Venous insufficiency (chronic) (peripheral); Decreased mobility Start: 02-28-2024 End: 02-28-2024 ambulatory [facility] Start: 02-21-2024 End: 02-21-2024 Subsequent hospital visit by physician Julissa Taylor DO Work Phone: [facility] Dominique Gar Comment on above: Arrived Start: 02-21-2024 End: 02-21-2024 ambulatory [facility] Start: 02-18-2024 End: 02-18-2024 Emergency department patient visit Kaylee Bunch MD Work Phone: [facility] Comment on above: Nonintractable heada james, unspecified chronicity pattern, unspecified headache type (Primary Dx) Start: 02-14-2024 End: 02-14-2024 Office outpatient visit 15 minutes Julissa Taylor DO Work Phone: [facility] Dominique Gar Comment on above: Non-pressure chronic ulcer of other part of right foot with fat layer exposed (HCC) (Primary Dx); Venous insufficiency (chronic) (peripheral); Decreased mobility Start: 02-14-2024 End: 02-14-2024 ambulatory DEMETRIUS [facility] Start: 02-07-2024 End: 02-07-2024 ambulatory [facility] Start: 02-07-2024 End: 02-07-2024 Office outpatient visit 15 minutes Julissa Reina Claudia DO Work Phone: [facility] [place] Comment on above: Non-pressure chronic ulcer of other part of right foot with fat layer 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) (Primary Dx); Venous insufficiency (chronic) (peripheral); Decreased mobility Start: 01-31-2024 End: 01-31-2024 Office outpatient visit 15 minutes Julissa Taylor DO Work Phone: [facility] [...] 15 minutes Julissa Taylor DO Work Phone: [facility] [place] Comment on above: Non-pressure chronic ulcer of other part of right foot with fat layer exposed (HCC) (Primary Dx); Venous insufficiency (chronic) (peripheral); Decreased mobility Start: 01-17-2024 End: 01-17-2024 ambulatory DEMETRIUS [facility] Start: 01-17-2024 End: 01-17-2024 Office outpatient visit 15 minutes Julissa Taylor DO Work Phone: [facility] Comment on above: Non-pressure chronic ulcer of other part of right foot with fat layer exposed (HCC) (Primary Dx); Venous insufficiency (chronic) (peripheral); Decreased mobility Start: 01-10-2024 End: 01-10-2024 ambulatory [facility] Start: 01-10-2024 End: 01-10-2024 Office outpatient visit 15 minutes Julissa Taylor DO Work Phone: [facility] Comment on above: Non-pressure chronic ulcer of other part of right foot with fat layer 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) (Primary Dx); Venous insufficiency (chronic) (peripheral); Decreased mobility Start: 01-03-2024 End: 01-03-2024 Office outpatient visit 15 minutes Julissa Taylor DO Work Phone: [facility] Comment on above: Non-pressure chronic ulcer of other part of right foot with fat layer exposed (HCC) (Primary Dx); Venous insufficiency (chronic) (peripheral); Decreased mobility Start: 01-03-2024 End: 01-03-2024 ambulatory [facility] Start: 12-27-2023 End: 12-27-2023 Subsequent hospital visit by physician Julissa Taylor DO Work Phone: [facility] Comment on above: Arrived Start: 12-27-2023 End: 12-27-2023 ambulatory [facility] Start: 12-20-2023 End: 12-20-2023 Office outpatient visit 15 minutes Julissa Taylor DO Work Phone: [facility] Comment on above: Non-pressure chronic ulcer of other part of right foot with fat layer exposed (HCC) (Primary Dx); Venous insufficiency (chronic) (peripheral); Lymphedema; Decreased mobility Start: 12-20-2023 End: 12-20-2023 ambulatory [facility] Start: 12-13-2023 End: 12-13-2023 Office outpatient visit 15 minutes Julissa Taylor DO Work Phone: [facility] Comment on above: Non-pressure chronic ulcer of other part of right foot with fat layer exposed (HCC) (Primary Dx); Venous insufficiency (chronic) (peripheral); Lymphedema; Decreased mobility Start: 12-13-2023 End: 12-13-2023 ambulatory [facility] Start: 12-06-2023 End: 12-06-2023 ambulatory [facility] Start: 12-06-2023 End: 12-06-2023 Office outpatient visit 15 minutes Julissa Taylor DO Work Phone: [facility] Comment on above: Non-pressure chronic ulcer of other part of right foot with fat layer exposed (HCC) (Primary Dx); Venous insufficiency (chronic) (peripheral); Lymphedema; Decreased mobility Start: 11-29-2023 End: 11-29-2023 ambulatory [facility] Start: 11-29-2023 End: 11-29-2023 Office outpatient visit 15 minutes Julissa Taylor DO [facility] Comment on above: Non-pressure chronic ulcer of other part of right foot with fat layer exposed (HCC) (Primary Dx); Venous insufficiency (chronic) (peripheral); Lymphedema; Decreased mobility Start: 11-22-2023 End: 11-22-2023 ambulatory [facility] Start: 11-22-2023 End: 11-22-2023 Subsequent hospital visit by physician Julissa Taylor DO Work Phone: [facility] Comment on above: Non-pressure chronic ulcer of other part of right foot with fat layer exposed (HCC) (Primary Dx); Venous insufficiency (chronic) (peripheral); Lymphedema; Decreased mobility Start: 11-17-2023 End: 11-17-2023 Subsequent hospital visit by physician [facility] Wound Care Nurse Schedule [facility] Comment on above: Non-pressure chronic ulcer of other part of right foot with fat layer exposed (HCC) Start: 11-17-2023 End: 11-17-2023 ambulatory [facility] Start: 11-15-2023 End: 11-15-2023 ambulatory [facility] Start: 11-15-2023 End: 11-15-2023 Office outpatient visit 15 minutes Julissa Taylor DO Work Phone: [facility] Comment on above: Non-pressure chronic ulcer of other part of right foot with fat layer exposed (HCC) (Primary Dx); Venous insufficiency (chronic) (peripheral); Lymphedema; Decreased mobility; Cellulitis of right lower leg Start: 11-08-2023 End: 11-08-2023 ambulatory [facility] Start: 11-08-2023 End: 11-08-2023 Office outpatient visit 15 minutes Julissa Taylor DO Work Phone: [facility] Comment on above: Non-pressure chronic ulcer of other part of right foot with fat layer exposed (HCC) (Primary Dx); Venous insufficiency (chronic) (peripheral); Lymphedema; Decreased mobility Start: 11-01-2023 End: 11-01-2023 [facility] Start: 11-01-2023 End: 11-01-2023 Office outpatient visit 15 minutes Julissa Taylor DO Work Phone: [facility] Comment on above: Non-pressure chronic ulcer of other part of right foot with fat layer exposed (HCC) (Primary Dx); Venous insufficiency (chronic) (peripheral); Lymphedema; Decreased mobility Start: 10-25-2023 End: 10-25-2023 [facility] Start: 10-25-2023 End: 10-25-2023 Subsequent hospital visit by physician Julissa Taylor DO Work Phone: [facility] Comment on above: Non-pressure chronic ulcer of other part of right foot with fat layer exposed (HCC) (Primary Dx); Venous insufficiency (chronic) (peripheral); Lymphedema; Decreased mobility; Non-pressure chronic ulcer right lower leg, limited to breakdown skin (HCC) Start: 10-18-2023 End: 10-18-2023 [facility] Start: 10-18-2023 End: 10-18-2023 Office outpatient visit 15 minutes Julissa Taylor DO Work Phone: [facility] Comment on above: Non-pressure chronic ulcer of other part of right foot with fat layer exposed (HCC) (Primary Dx); Venous insufficiency (chronic) (peripheral); Lymphedema; Decreased mobility; Cellulitis of left foot Start: 10-11-2023 End: 10-11-2023 ambulatory [facility] Start: 10-11-2023 End: 10-11-2023 Subsequent hospital visit by physician Julissa Taylor DO Work Phone: [facility] Comment on above: Non-pressure chronic ulcer of other part of right foot with fat layer exposed (HCC) (Primary Dx); Venous insufficiency (chronic) (peripheral); Lymphedema; Decreased mobility Start: 10-04-2023 End: 10-04-2023 Subsequent hospital visit by physician Julissa Mack Phone: [facility] Comment on above: Non-pressure chronic ulcer of other part of right foot with fat layer exposed (HCC) (Primary Dx); Venous insufficiency (chronic) (peripheral); Lymphedema; Decreased mobility Start: 10-04-2023 End: 10-04-2023 ambulatory [facility] Start: 09-27-2023 End: 09-27-2023 Office outpatient visit 15 minutes Julissa Mack Phone: [facility] Comment on above: Non-pressure chronic ulcer of other part of right foot with fat layer exposed (HCC) (Primary Dx); Venous insufficiency (chronic) (peripheral); Lymphedema Start: 09-27-2023 End: 09-27-2023 Subsequent hospital visit by physician Julissa Mack Phone[facility] Comment on above: Arrived Start: 09-27-2023 End: 09-27-2023 ambulatory [facility] Start: 09-20-2023 End: 09-20-2023 Office outpatient visit 15 minutes Julissa Taylor DO Work Phone: [facility] Comment on above: Non-pressure chronic ulcer of other part of right foot with fat layer exposed (HCC) (Primary Dx); Venous insufficiency (chronic) (peripheral); Lymphedema Start: 09-20-2023 End: 09-20-2023 ambulatory [facility] Start: 09-13-2023 End: 09-13-2023 ambulatory [facility] Start: 09-13-2023 End: 09-13-2023 Subsequent hospital visit by physician Julissa Mack Phone: [facility] Comment on above: Non-pressure chronic ulcer of other part of right foot with fat layer exposed (HCC); Venous insufficiency (chronic) (peripheral); Lymphedema Start: 09-06-2023 End: 09-06-2023 ambulatory [facility] Start: 09-06-2023 End: 09-06-2023 Subsequent hospital visit by physician Julissa Mack Phone: [facility] Comment on above: Non-pressure chronic ulcer of other part of right foot with fat layer exposed (HCC); Lymphedema; Venous insufficiency (chronic) (peripheral); Non-pressure chronic ulcer right lower leg, limited to breakdown skin (HCC) Start: 08-30-2023 End: 08-30-2023 Subsequent hospital visit by physician Julissa Mack Phone: [facility] Comment on above: Venous insufficiency (chronic) (peripheral) (Primary Dx); Lymphedema; Non-pressure chronic ulcer right lower leg, limited to breakdown skin (HCC); 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); Decreased mobility Start: 08-30-2023 End: 08-30-2023 [facility] Start: 08-23-2023 End: 08-23-2023 Subsequent hospital visit by physician Julissa Mack Phone: [facility] Comment on above: Lymphedema (Primary Dx); Venous insufficiency (chronic) (peripheral); Non-pressure chronic ulcer right lower leg, limited to breakdown skin (HCC); 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); Decreased mobility Start: 08-23-2023 End: 08-23-2023 ambulatory [facility] Start: 07-16-2023 Registered [facility] [place] [facility] Start: 06-28-2023 End: 06-28-2023 ambulatory [facility] Work Phone: Start: 06-28-2023 End: 06-28-2023 Departed [facility] Start: 06-27-2023 End: 06-27-2023 ambulatory [facility] Work Phone: Start: 06-27-2023 End: 06-27-2023 Departed [facility] Start: 06-27-2023 Registered [facility] Start: 06-22-2023 End: 06-23-2023 Emergency department patient visit Fred Holloway MD Work Phone: [facility] Comment on above: Cellulitis of right [...] type Start: 06-12-2023 End: 06-12-2023 Departed [facility] [employer] Start: 03-14-2023 End: 03-14-2023 ambulatory [facility] Work Phone: Start: 03-14-2023 End: 03-14-2023 Departed [facility] [employer] [facility] Start: 03-14-2023 Registered [facility] Start: 03-13-2023 End: 03-13-2023 ambulatory [facility] Work Phone: Start: 03-13-2023 End: 03-13-2023 [facility] Start: 02-09-2023 End: 02-09-2023 ambulatory [facility] Work Phone: Start: 02-09-2023 End: 02-09-2023 [facility] [facility] Start: 01-09-2023 End: 01-09-2023 ambulatory [facility] Work Phone: Start: 01-09-2023 End: 01-09-2023 [facility] Start: 01-02-2023 End: 01-02-2023 [facility]ed [facility] Start: 12-14-2022 End: 12-14-2022 ambulatory [facility] Work Phone: Start: 12-14-2022 End: 12-14-2022 [facility] [facility] Start: 12-14-2022 [facility] [facility] Start: 11-28-2022 End: 11-28-2022 ambulatory [facility] Work Phone: Start: 11-28-2022 End: 11-28-2022 [facility]ed [facility] Start: 11-28-2022 [facility] Start: 11-21-2022 End: 11-21-2022 ambulatory [facility] Work Phone: Start: 11-21-2022 End: 11-21-2022 [facility] [facility] Start: 11-21-2022 [facility] [place] [facility] Start: 11-17-2022 End: 11-17-2022 Emergency department patient visit Jesús Ellis MD Work Phone: [facility] Comment on above: Passive suicidal dana ations (Primary Dx) Start: 11-16-2022 End: 11-16-2022 Postop follow up visit related to original px Josette Joe MCKOY Work Phone: [facility] Comment on above: Encounter for postop erative care (Primary Dx) Start: 10-26-2022 End: 10-26-2022 Subsequent hospital visit by physician Candie Vieyra PA-C Work Phone: [facility] Comment on above: Calculus of gallblad javier without cholecystitis without obstruction; Peripancreatic abscess Start: 10-24-2022 End: 10-24-2022 ambulatory [facility] Work Phone: Start: 10-24-2022 End: 10-24-2022 Departed [facility] [employer] [employer] [facility] Start: 10-24-2022 [facility]istered [facility] Start: 10-14-2022 Orders Only Candie Vieyra PA-C Work Phone: [facility] Comment on above: Preop testing (Prima ry Dx) Start: 10-14-2022 Patient encounter status Tamir Vieyra [facility]-C [facility] Work Phone: Start: 10-03-2022 Telephone encounter Brady esquivel MD Work Phone: [facility] Start: 09-12-2022 End: 09-12-2022 ambulatory [facility] Work Phone: Start: 09-12-2022 End: 09-12-2022 Departed [facility] [employer] [facility] Start: 09-12-2022 [facility]istered [facility] Start: 09-07-2022 End: 09-07-2022 ambulatory [facility] Work Phone: Start: 09-07-2022 End: 09-07-2022 Departed [facility] Start: 08-22-2022 End: 08-22-2022 ambulatory [facility] Work Phone: Start: 08-22-2022 End: 08-22-2022 Departed [facility] Start: 08-01-2022 Telephone encounter Candie de la torre PA-C Work Phone: [facility] Start: 08-01-2022 End: 08-01-2022 ambulatory [facility] Work Phone: Start: 08-01-2022 End: 08-01-2022 Departed [facility] Start: 07-29-2022 End: 07-29-2022 Office outpatient new 45 minutes Brady Powell MD Work Phone: [facility] Comment on above: Calculus of gallblad javier without cholecystitis without obstruction (Primary Dx); Peripancreatic abscess; History of traumatic brain injury; Epigastric pain Start: 07-28-2022 End: 07-28-2022 Departed [facility] Start: 07-18-2022 End: 07-18-2022 Departed [facility] Start: 07-15-2022 Telephone encounter Brady esquivel MD Work Phone: [facility] Comment on above: OTHER Start: 06-30-2022 End: 06-30-2022 Departed [facility] Start: 06-09-2022 Transcribe Orders Demetrius zacarias Work Phone: [facility] Central Scheduling Comment on above: Peripheral vascular disease, unspecified (HCC) (Primary Dx); Venous insufficiency (chronic) (peripheral); 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 Start: 05-20-2022 End: 05-20-2022 ambulatory [facility] Work Phone: Start: 05-20-2022 End: 05-20-2022 Departed [facility] [facility] Start: 05-20-2022 [facility] Start: 05-13-2022 End: 05-13-2022 Departed [facility] [facility] Start: 04-29-2022 End: 04-29-2022 ambulatory [facility] Work Phone: Start: 04-29-2022 End: 04-29-2022 Departed [facility] [facility] Start: 04-29-2022 [facility] Start: 04-22-2022 End: 04-22-2022 ambulatory [facility] Work Phone: Start: 04-22-2022 End: 04-22-2022 [facility] Start: 02-17-2022 End: 02-17-2022 ambulatory [facility] Work Phone: Start: 02-17-2022 End: 02-17-2022 Departed [facility] [facility] Start: 02-17-2022 [facility]istered [facility] Start: 02-10-2022 End: 02-10-2022 ambulatory [facility] Work Phone: Start: 02-10-2022 End: 02-10-2022 Departed [facility] Start: 01-17-2022 End: 01-17-2022 [facility] [facility] Start: 11-17-2021 End: 11-17-2021 ambulatory [facility] Work Phone: Start: 11-17-2021 End: 11-17-2021 Departed [facility] Start: 10-20-2021 End: 10-20-2021 Subsequent hospital [...] [facility] Start: 09-27-2021 Registered [facility] Start: 09-17-2021 Registered [facility] Start: 09-01-2021 End: 09-01-2021 Subsequent [...] Subsequent hospital visit by physician Lorie Ospina ASSET COORDINATOR - FUNERAL DIRECTOR Work Phone: [facility] Start: 06-08-2021 End: 06-08-2021 Subsequent hospital visit by physician Lorie Ospina ASSET COORDINATOR - FUNERAL DIRECTOR Work Phone: [facility] Start: 06-08-2021 End: 06-08-2021 Departed [facility] Start: 05-25-2021 End: 05-25-2021 Subsequent hospital visit by physician Lorie Ospina ASSET COORDINATOR - FUNERAL DIRECTOR Work Phone: [facility] Start: 04-06-2021 Registered [facility] Start: 06-26-2020 End: 06-26-2020 Emergency department patient visit Loki Hernandez Work Phone: [facility] Comment on above: Injury of head, init ial encounter (Primary Dx); Laceration of scalp, initial encounter Start: 02-19-2020 End: 02-19-2020 Emergency department patient visit Melly Marinelli Work Phone: [facility] Comment on above: Hypertensive urgency (Primary Dx); Acute nonintractable headache, unspecified headache type Start: 01-23-2020 End: 01-23-2020 Telephone encounter Margaret Reina (Clinical Nursing Professor) Candi Work Phone: [facility] Adult Comment on above: Appointment (needs o utpatient cystoscopy in the OR) Start: 04-05-2019 End: 04-05-2019 Emergency department patient visit Jesús Ellis MD Work Phone: [facility] Comment on above: Cellulitis [...] Phone: Start: 06-20-2022 PULSE OXIMETRY, CONTINUOUS Tresa Smallowod DO Work Phone: Start: 06-20-2022 Comprehensive metabo [...] Work Phone: Start: 06-16-2022 PULSE OXIMETRY, CONTINUOUS [employer] DO Work Phone: Start: 06-16-2022 Glucose quantitative [...] Work Phone: Start: 06-15-2022 PULSE OXIMETRY, CONTINUOUS [employer] DO Work Phone: Start: 06-15-2022 Urnls dip stick/tabl et reagent auto microscopy Brenda Blanco ASSET COORDINATOR - FUNERAL DIRECTOR Work Phone: Start: 06-15-2022 Radiologic exam ches t single view Asia Nelson MD Work Phone: Start: 06-15-2022 Chloride urine Brenda Blanco ASSET COORDINATOR - FUNERAL DIRECTOR Work Phone: Start: 06-15-2022 End: 06-15-2022 Smr [...] Work Phone: Start: 06-09-2022 PULSE OXIMETRY, CONTINUOUS [employer] DO Work Phone: Start: 06-09-2022 TTE w or w/o contr, cont ECG Matteo Rios MD Work Phone: Start: 06-09-2022 PULSE OXIMETRY, CONTINUOUS [employer] DO Work Phone: Start: 06-09-2022 Ecg routine ecg w/le ast 12 lds trcg only w/o i&r Brenda Hagan Work Phone: Start: 06-09-2022 Basic metabolic pane l calcium total Brenda Hagan Work Phone: Start: 06-08-2022 PULSE OXIMETRY, CONTINUOUS [employer] DO Work Phone: Start: 06-08-2022 Non-invas physiologi c std extremity art 2 level Bertha Earlacre ASSET COORDINATOR - FUNERAL DIRECTOR Work Phone: Start: 06-08-2022 TTE w or [...] 06-26-2020 Ct head/brain w/o co ntrast material oLki Hernandez Work Phone: Start: 06-26-2020 LACERATION REPAIR [...] DTaP/Tdap/Td vaccine (2 - Td or Tdap) [facility] Start: 06-26-2030 DTaP/Tdap/Td Vaccine s (2 - Td or Tdap) DTaP/Tdap/Td Vaccines (2 - Td or Tdap) [facility] Start: 06-26-2030 DTaP/Tdap/Td Vaccine s (3 - Td or Tdap) DTaP/Tdap/Td Vaccines (3 - Td or Tdap) [facility] Start: 06-26-2030 Urine microalbumin profile DTaP,Tdap,Td Vaccine (3 - Td or Tdap) [facility] Start: 06-26-2030 [facility] Start: 06-07-2027 Lipid panel [facility] Start: 02-17-2027 Diabetes Screening Diabetes Screenin [facility] Start: 10-28-2025 Diabetes Screening Diabetes Screenin [facility] Start: 07-08-2025 BP Controlled (<130/80) BP Controlle d (<130/80) [facility] Start: 01-13-2025 End: 01-13-2025 Patient encounter procedure 01/13/2025 11:30 AM EDT Office Visit Neurology [address] [address] Chhaya Saldana MD [address] [place], [place] [id number] 6 month follow up Neurology Comment on above: 6 month follow up Start: 06-15-2024 BP Controlled (<130/80) BP Controlle d (<130/80) [facility] Start: 04-09-2024 End: 04-09-2024 Patient encounter procedure 04/09/2024 2:15 PM EST [facility]ment [facility] [place] [address] [place] [address] Danielle Arreola DPM [address] [place] [address] [facility] [place] Start: 03-20-2024 End: 03-20-2024 Patient encounter procedure 03/20/2024 10:30 AM EST Appointment [facility] [place] [address] [place] [address] Julissa Taylor, DO [address], [place] [id number] [facility] [place] Start: 03-13-2024 End: 03-13-2024 Patient encounter procedure 03/13/2024 2:30 PM EST Appointment [facility] [place] [address] [place] [address] Julissa Taylor, DO [address], [place] [id number] [facility] [place] Start: 03-06-2024 End: 03-06-2024 Patient encounter procedure 03/06/2024 10:30 AM EST [facility]ment [facility] [place] [address] [place] [address] Julissa Taylor, DO [address], [place] [id number] [facility] [place] Start: 02-28-2024 End: 02-28-2024 Patient encounter procedure 02/28/2024 10:30 AM EST [facility]ment [facility] [place] [address] [place] [address] Julissa Taylor, DO [address], [place] [phone] [facility] [place] Start: 02-21-2024 End: 02-21-2024 Patient encounter procedure 02/21/2024 9:45 AM EST Appointment [facility] [place] [address] [place] [address] Julissa Taylor, DO [address], [place] [id number] [facility] [place] Start: 02-14-2024 End: 02-14-2024 Patient encounter procedure 02/14/2024 8:45 AM EST Appointment [facility] [place] [address] [place] [address] Julissa Taylor, DO [address], [place] [phone] [facility] [place] Start: 02-07-2024 End: 02-07-2024 Patient encounter procedure 02/07/2024 8:45 AM EDT Appointment [facility] [place] [address] [place] [address] Julissa Taylor, DO [address], [place] [id number] [facility] [place] Start: 01-31-2024 End: 01-31-2024 Patient encounter procedure 01/31/2024 8:45 AM EDT Appointment [facility] [place] [address] [place] [address] Julissa Taylor, DO [address], [place] [phone] [facility] [place] Start: 01-24-2024 End: 01-24-2024 Patient encounter procedure 01/24/2024 10:00 AM EDT Appointment [facility] [place] [address] Julissa Taylor, DO [address] [place] [address] [facility] [facility] O[facility] Therapy - [place] Start: 01-17-2024 End: 01-17-2024 Patient encounter procedure 01/17/2024 9:45 AM EDT Appointment [facility] [place] [address] [place] [address] Julissa Taylor, DO [address] [place] [address] [facility] - [place] Start: 01-10-2024 End: 01-10-2024 Patient encounter procedure 01/10/2024 9:15 AM EDT Appointment [facility] [place] [address] Julissa Taylor, DO [address] [facility], [place] [id number] [facility] [place] Start: 01-03-2024 End: 01-03-2024 Patient encounter procedure 01/03/2024 3:15 PM EDT Appointment [facility] [place] [address] [place] [address] Julissa Taylor, DO [address] [facility] [place] [id number] [facility] [place] Start: 12-27-2023 End: 12-27-2023 Patient encounter procedure 12/27/2023 2:45 PM EDT Appointment [facility] [place] [address] [place] [address] Julissa Taylor, DO [address] [place], [place] [id number] [facility] [place] Start: 12-20-2023 End: 12-20-2023 Patient encounter procedure 12/20/2023 11:00 AM EDT Appointment [facility] [address] [place] [address] Julissa Taylor, DO [address] [place], [place] [id number] [facility] [place] Start: 12-13-2023 End: 12-13-2023 Patient encounter procedure 12/13/2023 11:00 AM EDT Appointment [facility] [address] [place] [address] Julissa Taylor, DO [address] [place], [place] [id number] [facility] Start: 12-10-2023 COVID-19 Vaccine ( season) COVID-19 Vaccine () [facility] Start: 12-10-2023 COVID-19 Vaccine () COVID-19 Vaccine () [facility] Start: 12-10-2023 Influenza vaccination [facility] Start: 12-06-2023 End: 12-06-2023 Patient encounter procedure 12/06/2023 10:30 AM EDT Appointment [facility] [address] [place] [address] Julissa Taylor, DO [address], [place] [id number] [facility] Start: 11-29-2023 End: 11-29-2023 Patient encounter procedure 11/29/2023 10:15 AM EDT Appointment [facility] [address] [place] [address] Julissa Taylor, DO [address] [place], [place] [id number] [facility] Start: 11-17-2023 End: 11-17-2023 Patient encounter procedure 11/17/2023 10:30 AM EDT App[facility] [address] [place] [address] [facility] Start: 11-15-2023 End: 11-15-2023 Patient encounter procedure 11/15/2023 10:45 AM EDT App[facility] [address] [place] [address] Julissa Taylor, DO [address] [place] [address] [facility] Start: 11-08-2023 End: 11-08-2023 Patient encounter procedure 11/08/2023 9:30 AM EDT Appointment [facility] [address] [place] [address] Julissa Taylor, DO [address] [place] [address] [facility] Start: 11-01-2023 End: 11-01-2023 Patient encounter procedure 11/01/2023 8:30 AM EDT Appointment [facility] [address] [place] [address] Julissa Taylor, DO [address] [place], [place] [phone] [facility] Start: 10-25-2023 End: 10-25-2023 Patient encounter procedure 10/25/2023 8:30 AM EDT Appointment [facility] [address] [place] [address] Julissa Taylor, DO [address] [place] [address] [facility] Start: 10-18-2023 End: 10-18-2023 Patient encounter procedure 10/18/2023 10:15 AM EDT Appointment [facility] [address] [place] [address] Julissa Taylor, DO [address] [place] [address] [facility] Start: 10-11-2023 End: 10-11-2023 Patient encounter procedure 10/11/2023 8:45 AM EDT Appointment [facility] [address] [place] [address] Julissa Taylor, DO [address] [place], [place] [phone] [facility] Start: 10-04-2023 End: 10-04-2023 Patient encounter procedure 10/04/2023 1:45 PM EDT Appointment [facility] [address] [place] [address] Julissa Taylor, DO [address] [place] [address] [facility] Start: 09-27-2023 End: 09-27-2023 Patient encounter procedure 09/27/2023 1:15 PM EDT Appointment [facility] [address] [place] [address] Julissa Taylor, DO [address] [place] [address] [facility] Start: 09-20-2023 End: 09-20-2023 Patient encounter procedure 09/20/2023 2:15 PM EDT Appointment [facility] [address] [place] [address] Julissa Taylor, DO [address] [place] [address] [facility] Start: 09-13-2023 End: 09-13-2023 Patient encounter procedure 09/13/2023 2:00 PM EDT Appointment [facility] [address] [place] [address] Julissa Taylor, DO [address] [place] [address] [facility] Start: 09-06-2023 End: 09-06-2023 Patient encounter procedure 09/06/2023 9:30 AM EDT Appointment [facility] [address] [place] [address] Julissa Taylor, DO [address] [place], [place] [phone] [facility] Start: 08-30-2023 End: 08-30-2023 Patient encounter procedure 08/30/2023 9:30 AM EDT Appointment [facility] [address] [place] [address] Julissa Taylor DO [address] [place] [address] [facility] Start: 07-16-2023 Urine culture Urine Culture [facility] Start: 07-16-2023 [facility] Start: 06-23-2023 Diabetes mellitus screening [facility] Start: 06-19-2023 LIPID SCREEN LIPID SCREEN [facility] Start: 04-10-2023 Medicare Advantage Annual Wellness Visit Medicare [facility] Annual Wellness Visit [facility] Start: 01-22-2023 DIABETES SCREEN DIABETES SCREEN [facility] Start: 12-12-2022 Depression Monitoring Depression Mon itoring [facility] Start: 12-12-2022 Depresssion Monitoring Depresssion M onitoring [facility] Start: 12-09-2022 COVID-19 Vaccine ( season) COVID-19 Vaccine ( season) [facility] Start: 12-09-2022 Influenza vaccination [facility] Start: 2022 RSV Immunization age d 60 or older (1 - 1-dose 60+ series) RSV Immunization aged 60 or older (1 - 1-dose 60+ series) [facility] Start: 2022 RSV Immunization for Adults (1 - Risk 60-74 years 1-dose series) RSV Immunization for Adults (1 - Risk 60-74 years 1-dose series) [facility] Start: 2022 RSV Vaccine (1 - 1-d ose 60+ series) RSV Vaccine (1 - 1-dose 60+ series) [facility] Start: 11-16-2022 End: 11-16-2022 Patient encounter procedure [facility] Advanced Laproscopic Surgery Start: 11-02-2022 End: 11-02-2022 Admission to same day surgery center 11/02/2022 Surgery Procedural Brady Powell MD [address] [place] [address] [address] [place] [address] LAPAROSCOPIC CHOLECYSTECTOMY, POSSIBLE OPEN [72550 (CPT )] [facility] OR Comment on above: LAPAROSCOPIC CHOLECY STECTOMY, POSSIBLE OPEN [84703 (CPT )] Start: 11-02-2022 End: 11-02-2022 Laparoscopy surg cholecystectomy [facility] Operating Room Start: 11-02-2022 Subsequent hospital visit by physician 11/02/2022 Hospital Encounter Procedural Brady Powell MD [address] [facility] [address] [place] [address] [facility] MAIN OR Start: 11-01-2022 End: 11-01-2022 Admission to same day surgery center 11/01/2022 Surgery Procedural Brady Powell MD [address] [facility] [address] [place] [address] LAPAROSCOPIC CHOLECYSTECTOMY, POSSIBLE OPEN [63147 (CPT )] [facility] MAIN OR Comment on above: LAPAROSCOPIC CHOLECY STECTOMY, POSSIBLE OPEN [29901 (CPT )] Start: 11-01-2022 End: 11-01-2022 Laparoscopy surg cholecystectomy LAPAROSCOPIC CHOLECYSTECTOMY Calculus of gallbladder without cholecystitis without obstruction Acute pancreatitis without necrosis or infection, unspecified Epigastric pain 11/01/2022 7:30 AM EDT [facility] Operating Room Start: 11-01-2022 Subsequent hospital visit by physician 11/01/2022 Hospital Encounter Procedural Brady Powell MD [address] [facility] [address] [place] [id number] [facility] MAIN OR Start: 10-28-2022 End: 10-28-2022 Admission to same day surgery center 10/28/2022 8:30 AM EDT - 10/28/2022 10:00 AM EDT Surgery [facility] OR [address] [facility] [place] [address] Brady Powell MD [address] [facility] [address] [place] [address] LAPAROSCOPIC CHOLECYSTECTOMY, POSSIBLE OPEN [21682 (CPT )] [facility] MAIN OR Comment on above: LAPAROSCOPIC CHOLECY STECTOMY, POSSIBLE OPEN [27982 (CPT )] Start: 10-28-2022 End: 10-28-2022 Anesthesia consultation 10/28/2022 8:30 AM EDT Anesthesia Event [facility] MA[facility] OR [address] [place] [address] Jennie Chamorro NP [address] [place] [address] [facility] MAIN OR Start: 10-28-2022 End: 10-28-2022 Laparoscopy surg cholecystectomy LAPAROSCOPIC CHOLECYSTECTOMY Calculus of gallbladder without cholecystitis without obstruction Acute pancreatitis without necrosis or infection, unspecified Epigastric pain 10/28/2022 8:30 AM EDT [facility] Operating Room Start: 10-28-2022 Subsequent hospital visit by physician 10/28/2022 6:30 AM EDT Hospital Encounter [facility] MAIN OR [address] [place] [address] Brady Powell MD [address] [place] [address] [address] [place] [address] [facility] MAIN OR Start: 10-26-2022 End: 10-26-2022 Patient encounter procedure [facility] CT Start: 10-26-2022 End: 10-26-2022 Admission to establishment [facility] Pre-Admit Testing Start: 10-14-2022 End: 10-15-2023 Hepatic function 2000 panel - Serum or Plasma Hepatic function panel Lab Routine Preop testing Expected: 10/14/2022 (Approximate), Expires: 10/15/2023 [facility] [employer] Work Phone: Comment on above: Expected: 10/14/2022 (Approximate), Expires: 10/15/2023 Start: 07-29-2022 End: 07-30-2023 Amylase [Enzymatic activity/volume] in Serum or Plasma Amylase Lab Routine Calculus of gallbladder without cholecystitis without obstruction Peripancreatic abscess Expected: 07/29/2022 (Approximate), Expires: 07/30/2023 [facility] Work Phone: Comment on above: Expected: 07/29/2022 (Approximate), Expires: 07/30/2023 Start: 07-29-2022 End: 07-30-2023 Creatinine [Mass/volume] in Serum or Plasma Creatinine, Serum Lab Routine Calculus of gallbladder without cholecystitis without obstruction Peripancreatic abscess Expected: 07/29/2022 (Approximate), Expires: 07/30/2023 [employer] Comment on above: Expected: 07/29/2022 (Approximate), Expires: 07/30/2023 Start: 07-29-2022 End: 07-30-2023 CT Abdomen and Pelvis W contrast IV CT abdomen pelvis w contrast Imaging Routine Calculus of gallbladder without cholecystitis without obstruction Peripancreatic abscess Expected: 07/29/2022, Expires: 07/30/2023 [employer] Comment on above: Expected: 07/29/2022 , Expires: 07/30/2023 Start: 07-29-2022 End: 07-30-2023 Hepatic function 2000 panel - Serum or Plasma Hepatic function panel Lab Routine Calculus of gallbladder without cholecystitis without obstruction Peripancreatic abscess Expected: 07/29/2022 (Approximate), Expires: 07/30/2023 [employer] Comment on above: Expected: 07/29/2022 (Approximate), Expires: 07/30/2023 Start: 07-29-2022 End: 07-30-2023 Lipase [Enzymatic activity/volume] in Serum or Plasma Lipase Lab Routine Calculus of gallbladder without cholecystitis without obstruction Peripancreatic abscess Expected: 07/29/2022 (Approximate), Expires: 07/30/2023 [employer] Comment on above: Expected: 07/29/2022 (Approximate), Expires: 07/30/2023 Start: 07-29-2022 End: 07-29-2022 Patient encounter procedure 07/29/2022 Office Visit General Surgery Brady Powell MD [address] [place] [address] [address] [place] [address] [facility] Advanced Laproscopic [facility] Start: 12-09-2021 Influenza vaccination [facility] Start: 12-09-2021 [facility] Start: 05-24-2021 Annual Wellness Visi t (AWV) Annual Wellness Visit (AWV) [facility] Start: 02-18-2021 Creatinine measurement [facility] Start: 02-18-2021 Potassium [Moles/vol ume] in Serum or Plasma Potassium [facility] Start: 02-18-2021 Potassium monitoring Potassium monit oring [facility] Start: 02-18-2021 ZZPotassium ZZ[employer]assium [facility] Start: 12-09-2020 Influenza vaccination Flu vaccine (# 1) [facility] Start: 04-05-2020 [place]inine [place] Start: 04-05-2020 Potassium monitoring Potassium monit [place], [place] Start: 12-10-2019 Influenza vaccination [place], [place] Start: 12-09-2018 Influenza vaccination Flu vaccine (# 1) [facility] Work Phone: Start: 2017 PROSTATE CANCER SCREENING DISCUSSION PROSTATE CANCER SCREENING DISCUSSION [facility] Start: 2017 Prostate specific antigen measurement Prostate Cancer Screening Discussion [facility] Start: 07-11-2015 Pneumococcal Vaccine : 50+ Years (2 of 2 - PCV) Pneumococcal Vaccine: 50+ Years (2 of 2 - PCV) [facility] Start: 07-11-2015 Pneumococcal Vaccine : Pediatrics (0 to 5 Years) and At-Risk Patients (6 to 64 Years) (2 - PCV) Pneumococcal Vaccine: Pediatrics (0 to 5 Years) and At-Risk Patients (6 to 64 Years) (2 - PCV) [facility] Start: 07-11-2015 Pneumococcal Vaccine : Pediatrics (0 to 5 Years) and At-Risk Patients (6 to 64 Years) (2 of 2 - PCV) Pneumococcal Vaccine: Pediatrics (0 to 5 Years) and At-Risk Patients (6 to 64 Years) (2 of 2 - PCV) [facility] Start: 07-11-2015 [facility] Start: 2012 Screening for malign ant neoplasm of colon [facility] Start: 2012 Shingles Vaccine (1 of 2) Shingles Vaccine (1 of 2) [facility] Start: 2012 SHINGRIX VACCINE (1 of 2) SHINGRIX VACCINE (1 of 2) [facility] Start: 2012 Zoster Vaccines (1 of 2) Zoster Vacc yana (1 of 2) [facility] Start: 2012 [facility] Start: 12-05-2007 Screening for malign ant neoplasm of colon [facility] Start: 2002 Prostate specific antigen measurement Prostate Specific Antigen (PSA) Screening or Monitoring [facility] Start: 1981 Urine microalbumin profile DTAP,TDAP,TD (1 - Tdap) [facility] Start: 1980 ANNUAL PCP TEAM MANUAL QA TESTER ALIZA DISEASE VISIT ANNUAL PCP TEAM CHRONIC DISEASE VISIT [facility] Start: 1980 Anxiety Screening Anxiety Screening [facility] Start: 1980 BP CONTROLLED (<130/80) BP CONTROLLE D (<130/80) [facility] Start: 1980 HEPATITIS C SCREENING HEPATITIS C SC REENING [facility] Start: 1980 Hepatitis C screening [facility] Start: 1980 HIV SCREENING HIV SCREENING [facility] Start: 1980 HIV screening HIV Screening [facility] Start: 1978 COVID-19 Vaccine (1) COVID-19 Vaccin e (1) [facility] Work Phone: Start: 1977 HIV screening HIV screen [facility] Start: 1974 Depression Screen Depression Screen [facility] Start: 1974 Depresssion Monitoring Depresssion M onitoring [facility] Start: 1972 Lipid panel [facility] Start: 12-05-1967 COVID-19 Vaccine (1) COVID-19 Vaccin e (1) [facility] Start: 12-05-1963 MMR Vaccines (1 of 1 - Standard series) MMR Vaccines (1 of 1 - Standard series) [facility] Start: 12-05-1963 [facility] Start: 06-06-1963 COVID-19 Vaccine (#1) COVID-19 Vacci ne (#1) [facility] Start: 06-06-1963 [facility] Start: 1962 Annual Wellness Visi t (AWV) Annual Wellness Visit (AWV) [facility] Start: 1962 Hepatitis B Vaccines (1 of 3 - 3-dose series) Hepatitis B Vaccines (1 of 3 - 3-dose series) [facility] Start: 1962 Hepatitis C screening Hepatitis C sc reen [facility] Start: 1962 HIV screening [facility] Start: 1962 Screening for malign ant neoplasm of colon [facility] Start: 1962 [facility] End: 06-22-2023 Aerobic and Anaerobic Culture with Stain [facility] Work Phone: Comment on above: Once (Lab) for 1 Occ urrences starting 06/22/2023 until 06/22/2023 Bacteria identified in Blood by Culture [facility] [employer] Bacteria identified in Unspecified specimen by Aerobe culture Culture, Aerobic Bacteria with Gram Stain Microbiology STAT 06/22/2023 11:11 PM EDT [facility] End: 06-22-2023 Bacteria identified in Unspecified specimen by Anaerobe culture [facility] [employer] Comment on above: Once for 1 Occurrenc es starting 06/22/2023 until 06/22/2023 End: 10-26-2022 CT Abdomen and Pelvis W contrast IV [facility] [employer] Work Phone: Comment on above: Once for 1 Occurrenc es starting 10/26/2022 until 10/26/2022 Dressing Order: Calc ium alginate (R leg); Weekly; Adaptic (multiple sizes); (Profore light) [facility] Work Phone: Comment on above: Ordered: 11/22/2023 Dressing Order: Calc ium alginate; 4x4 gauze, ABDs; Kerlex, Paper tape; Double Layer tubigrip Dressing Order: Calcium alginate; 4x4 gauze, ABDs; Kerlex, Paper tape; Double Layer tubigrip Wound Ostomy Routine Ordered: 11/08/2023 [employer] Work Phone: Comment on above: Ordered: 11/08/2023 Dressing Order: Calc ium alginate; Daily; 4x4 gauze ([place] Blue); Kerlex, Paper tape [facility] [employer] Work Phone: Comment on above: Ordered: 01/17/2024 Dressing Order: Calc ium alginate; Daily; 4x4 gauze, ABDs; Kerlex, Paper tape [facility] [employer] Work Phone: Comment on above: Ordered: 12/06/2023 Dressing Order: Calc ium alginate; Daily; 4x4 gauze, ABDs; Kerlex, Paper tape [facility] [employer] Work Phone: Comment on above: Ordered: 12/20/2023 Dressing Order: Calc ium alginate; Daily; ABDs; Kerlex, Paper tape [facility] [employer] Work Phone: Comment on above: Ordered: 11/29/2023 Dressing Order: Calc ium alginate; Daily; ABDs; Kerlex, Paper tape [facility] Work Phone: Comment on above: Ordered: 12/13/2023 Dressing Order: Calc ium alginate; Daily; ABDs; Kerlex, Paper tape [facility] Work Phone: Comment on above: Ordered: 01/31/2024 Dressing Order: Calc ium alginate; Daily; ABDs; Kerlex, Paper tape Dressing Order: Calcium alginate; Daily; ABDs; Kerlex, Paper tape Wound Ostomy Routine 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) Peripheral venous insufficiency [I87.2] Ordered: 03/27/2024 [employer] Work Phone: Comment on above: Ordered: 03/27/2024 Dressing Order: Calc ium alginate; Weekly; (profore lite) [facility] Work Phone: Comment on above: Ordered: 11/15/2023 Dressing Order: Calc ium alginate; Weekly; 4x4 gauze; Multilayer compression wrap 3 layers [facility] Work Phone: Comment on above: Ordered: 03/06/2024 Dressing Order: Calc ium alginate; Weekly; Kerlex, Silk tape; Multilayer compression wrap 3 layers, Unna boot Dressing Order: Calcium alginate; Weekly; Kerlex, Silk tape; Multilayer compression wrap 3 layers, Unna boot Wound Ostomy Routine Ordered: 10/11/2023 [facility] Work Phone: Comment on above: Ordered: 10/11/2023 Dressing Order: Calc ium alginate; Weekly; Multilayer compression wrap 3 layers (Profore lite) [employer] Work Phone: Comment on above: Ordered: 01/10/2024 Dressing Order: Calc ium alginate; Weekly; Multilayer compression wrap 3 layers (Profore lite) [facility] Work Phone: Comment on above: Ordered: 01/24/2024 Dressing Order: Calc ium alginate; Weekly; Multilayer compression wrap 3 layers (profore lite) [facility] Work Phone: Comment on above: Ordered: 02/07/2024 Dressing Order: Calc ium alginate; Weekly; Multilayer compression wrap 3 layers (Profore lite) [facility] Work Phone: Comment on above: Ordered: 02/28/2024 Dressing Order: Christa agen Ag, Calcium Alginate AG; Weekly; Hydralock pads (multiple sizes); Kerlex, Silk tape; Multilayer compression wrap 3 layers (cover toes), Unna boot Dressing Order: Collagen Ag, Calcium Alginate AG; Weekly; Hydralock pads (multiple sizes); Kerlex, Silk tape; Multilayer compression wrap 3 layers (cover toes), Unna boot Wound Ostomy Routine Ordered: 08/23/2023 [facility] Work Phone: Comment on above: Ordered: 08/23/2023 Dressing Order: Christa agen Ag, Calcium alginate; 4x4 gauze; Kerlex, Silk tape; Multilayer compression wrap 3 layers, Unna boot Dressing Order: Collagen Ag, Calcium alginate; 4x4 gauze; Kerlex, Silk tape; Multilayer compression wrap 3 layers, Unna boot Wound Ostomy Routine Ordered: 09/28/2023 [facility] Work Phone: Comment on above: Ordered: 09/28/2023 Dressing Order: Christa agen Ag, Calcium alginate; Hydralock pads (multiple sizes); Kerlex; Unna boot, Multilayer compression wrap 3 layers Dressing Order: Collagen Ag, Calcium alginate; Hydralock pads (multiple sizes); Kerlex; Unna boot, Multilayer compression wrap 3 layers Wound Ostomy Routine Ordered: 09/06/2023 [facility] Work Phone: Comment on above: Ordered: 09/06/2023 Dressing Order: Christa agen Ag, Calcium alginate; Weekly; 4x4 gauze, Hydralock pads (multiple sizes); Kerlex, Silk tape; Unna boot, Multilayer compression wrap 3 layers Dressing Order: Collagen Ag, Calcium alginate; Weekly; 4x4 gauze, Hydralock pads (multiple sizes); Kerlex, Silk tape; Unna boot, Multilayer compression wrap 3 layers Wound Ostomy Routine Ordered: 09/13/2023 [facility] [employer] Work Phone: Comment on above: Ordered: 09/13/2023 Dressing Order: Christa agen Ag, Calcium alginate; Weekly; 4x4 gauze; Kerlex, Silk tape; Multilayer compression wrap 3 layers, Unna boot Dressing Order: Collagen Ag, Calcium alginate; Weekly; 4x4 gauze; Kerlex, Silk tape; Multilayer compression wrap 3 layers, Unna boot Wound Ostomy Routine Ordered: 08/30/2023 [facility] [employer] Work Phone: Comment on above: Ordered: 08/30/2023 Dressing Order: Christa agen Ag, Calcium alginate; Weekly; 4x4 gauze; Kerlex; Unna boot, Multilayer compression wrap 3 layers Dressing Order: Collagen Ag, Calcium alginate; Weekly; 4x4 gauze; Kerlex; Unna boot, Multilayer compression wrap 3 layers Wound Ostomy Routine Ordered: 10/04/2023 [facility] Work Phone: Comment on above: Ordered: 10/04/2023 Dressing Order: Christa agen Ag; Weekly; (calcium alginate); Kerlex, Silk tape; Multilayer compression wrap 3 layers (cover toes), Unna boot Dressing Order: Collagen Ag; Weekly; (calcium alginate); Kerlex, Silk tape; Multilayer compression wrap 3 layers (cover toes), Unna boot Wound Ostomy Routine Ordered: 09/20/2023 [facility] Comment on above: Ordered: 09/20/2023 Dressing Order: Collagen, Calcium alginate; Daily; ABDs; Kerlex, Paper tape [facility]: Comment on above: Ordered: 02/14/2024 Dressing Order: Hydrafera blue/Dermablue; Daily; Sorbex; Kerlex, Paper tape; Single layer tubigrip [facility]: Comment on above: Ordered: 11/01/2023 Dressing Order: Hydrafera blue/Dermablue; Weekly; Sorbex, 4x4 gauze; Kerlex, Paper tape; Unna boot, Multilayer compression wrap 3 layers Dressing Order: Hydrafera blue/Dermablue; Weekly; Sorbex, 4x4 gauze; Kerlex, Paper tape; Unna boot, Multilayer compression wrap 3 layers Wound Ostomy Routine Ordered: 10/25/2023 [facility]: Comment on above: Ordered: 10/25/2023 Dressing Order: Soap & water; Calcium alginate; Every other day; Sorbex; Kerlex, Paper tape; Surepress Dressing Order: Soap & water; Calcium alginate; Every other day; Sorbex; Kerlex, Paper tape; Surepress Wound Ostomy Routine Ordered: 10/18/2023 [facility]: Comment on above: Ordered: 10/18/2023 Dressing Order: Week ly; (Profore lite) [employer] Work Phone: Comment on above: Ordered: 01/03/2024 OUTSIDE PROCEDURE SCAN OUTSIDE P ROCEDURE SCAN Procedures Ordered: 10/24/2022 [facility] Comment on above: Ordered: 10/24/2022 [facility] Immunizations Immunization Date Immunization Notes Care Provider [facility] 01-17-2024 COVID-19 vaccine, ag e 12+ yr (PFIZER-BIONTECH COMIRNATY) Chhaya Saldana MD Work Phone: [facility] 01-09-2024 influenza, seasonal, injectable, preservative free Chhaya Saldana MD Work Phone: [facility] 06-09-2023 respiratory syncytia l virus (RSV) vaccine, bivalent (ABRYSVO) Chhaya Saldana MD Work Phone: [facility] 03-13-2023 COVID-19 vaccine, ag e 12+ yr (PFIZER-BIONTECH COMIRNATY) Chhaya Saldana MD Work Phone: [facility] 01-09-2023 influenza, injectabl e, quadrivalent, preservative free Chhaya Saldana MD Work Phone: [facility] 08-05-2022 pneumococcal conjuga te (PCV20) vaccine, 20 valent (PREVNAR 20) Chhaya Saldana MD Work Phone: [facility] 01-14-2022 COVID-19 vaccine, ag e 12+ yr, bivalent (PFIZER-BIONTECH) Chhaya Saldana MD Work Phone: [facility] 01-14-2022 influenza, injectabl e, quadrivalent, preservative free Chhaya Saldana MD Work Phone: [facility] 01-28-2021 COVID-19 original vaccine, age 12+ yr, monovalent (PFIZER-BIONTECH - PURPLE TOP) Chhaya Saldana MD Work Phone: [facility] 01-12-2021 influenza, injectabl e, quadrivalent, preservative free Chhaya Saldana MD Work Phone: [facility] 06-26-2020 diphtheria, tetanus toxoids and acellular pertussis vaccine, unspecified formulation Loki Hernandez SOPHIA Work Phone: 06-26-2020 tetanus toxoid, redu joelle diphtheria toxoid, and acellular pertussis vaccine, adsorbed Loki CORTES 05-06-2020 COVID-19 original vaccine, age 12+ yr, monovalent (PFIZER-BIONTECH - PURPLE TOP) Chhaya Saldana MD Work Phone: [facility] 04-15-2020 COVID-19 original vaccine, age 12+ yr, monovalent (PFIZER-BIONTECH - PURPLE TOP) Chhaya Saldana MD Work Phone: [facility] 03-11-2015 influenza, injectabl e, quadrivalent, preservative free Chhaya Saldana MD Work Phone: [facility] 07-10-2014 pneumococcal polysaccharide vaccine, 23 valent Margaret Coyner [facility] 02-04-2014 influenza, seasonal, injectable, preservative free Chhaya Saldana MD Work Phone: [facility] Payers Date Payer Category Payer Self-pay [id number] 2021 Medicaid [facility] MEDICAID ONLY [id number] 2021 Medicare [id number] 2021 Medicare (Managed Care) [facility] MEDICARE [id number] 2021 Medicare HMO [facility] [id number] 2021 Unknown [facility] KELLYETTER EXCHANGE [id number] 2021-Present [address] [facility] [place] [address] Exchange Plan [id number] 2021 Medicare [id number] 2021 Unknown [id number] 2021 Medicaid [id number] 2014 Private Health Insurance ARIN NEAL [address] [id number] 2014-Present Indemnity [id number] 2014 Medicare [id number] 1985 Medicare MEDICARE MEDICAR E A AND B [id number] 1985-Present [place] Medicare [id number] Unknown [id number] Unknown [id number] 462 Unknown [id number] 462 Unknown [id number] 462 Unknown [id number] 462 Unknown [id number] 462 Unknown [id number] 462 Unknown [id number] 462 Unknown [id number] 462 Unknown [id number] 462 Unknown [id number] 462 Social History Date Type Detail Facility Start: 04-05-2019 End: 02-19-2020 Tobacco smoking status NHIS Unknown if ever smoked [employer] [facility] Start: 02-19-2020 End: 07-08-2024 [facility] use and exposure [facility] Start: 02-19-2020 End: 04-09-2024 Alcohol intake Lifetime non-drinker (finding) [place], [place] Start: 02-19-2020 End: 06-08-2022 History SDOH Alcohol Frequency 1 [place], [place] Start: 1960 Sex Assigned At Not on file S [employer] Phone: Start: 05-28-2022 End: 11-17-2022 Exposure to SARS-CoV-2 (event) Not sure [facility] Start: 01-21-2020 End: 07-08-2024 Tobacco smoking status NHIS Former smoker [facility] End: 04-10-1982 History of tobacco use Current smoker [facility] Start: 01-21-2020 End: 07-08-2024 Alcohol intake Current non-drinker of alcohol (finding) [facility] Start: 1960 Sex Assigned At Male [facility] Start: 06-08-2022 Tobacco smoking stat us WYIS Never smoked tobacco [facility] Start: 06-08-2022 History SDOH Alcohol Std Drinks 0 [facility] [employer] Start: 06-08-2022 History SDOH IPV Fear 2 S [employer] End: 04-10-1982 History of tobacco use Cigarette Smoker [facility] Start: 03-17-2020 End: 06-08-2022 History of Social function [facility] Start: 03-17-2020 End: 06-08-2022 Humiliation, Afraid, Rape, and Kick questionnaire [HARK] [facility] Within the last year , have you been afraid of your partner or ex-partner? No [facility] How often to you hav e a drink containing alcohol? Never [employer] How many standard dr inks containing alcohol do you have on a typical day? Patient does not drink [employer] Start: 11-08-2021 End: 07-26-2024 Sex Male (finding) [facility] Functional Status Date Assessment Result Facility 01-27-2020 Are you deaf, or do you have serious difficulty hearing No 01/27/2020 11:07 AM Alicia Joseph, SO No [facility] 01-27-2020 Are you blind, or do you have serious difficulty seeing, even when wearing glasses No 01/27/2020 11:07 AM Alicia Joseph, SO No [facility] 01-27-2020 Do you have serious difficulty walking or climbing stairs No 01/27/2020 11:07 AM Alicia Joseph, SO No [facility] 01-27-2020 Do you have difficul ty dressing or bathing No 01/27/2020 11:07 AM Alicia Joseph, SO No [facility] 01-27-2020 Because of a physica l, mental, or emotional condition, do you have difficulty doing errands alone such as visiting a physician's office or shopping No 01/27/2020 11:07 AM Alicia Joseph, SO No [facility] Mental Status Date Assessment Result Facility 01-27-2020 Because of a physica l, mental, or emotional condition, do you have serious difficulty concentrating, remembering, or making decisions No 01/27/2020 11:07 AM Alicia Joseph, SO No [facility] Clinical Notes 06-07-2022 to 01-13-2025 Patient InstructionsChhaya Saldana MD - 07/08/2024 11:33 AM Cristi Arreola DPM - 04/09/2024 2:15 PM Kurt Radford RN - 04/09/2024 2:15 PM ESTPatient InstructionsPatient Instructions Note Date & Type Note Facility 01-13-2025 Note HNO ID: [id number] Author: CHHAYA SALDANA MD Service: ? Author [...] - Melatonin 10 mg QHS (sleep) - Monroeton 5 mg q8hrs PRN pain (takes around [...] Normocephalic Neck: Supple (more content not included)... [facility] 07-08-2024 Instructions Chhaya Saldana MD - 07/08/2024 12:25 PM EDT Stop aimovig. Talk with psychiatry about increasing amitriptyline if possible with other medications. documented in this encounter [facility] 07-08-2024 Note HNO ID: [id number] Author: CHHAYA SALDANA MD Service: ? Author [...] (sleep) - Aimovig 140 mg monthly - Monroeton 5 mg q8hrs PRN pain (takes around [...] 10 mg t (more content not included)... 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 Patient discharged without any issues. All questions answered. Call the clinic if your wound reopens or a new wound appears at [phone] documented in this encounter [facility] 03-27-2024 History of Present illness Narrative Images from the original note were not included. [facility] Wound Care Progress Note CHIEF COMPLAINT: [...] Test Results/Process Orders 10 [] Staff telephones [employer], Nursing Homes/Clarify Orders 10 [x] Routine Transfer [...] or more Points) documented in this encounter [facility] 03-27-2024 History of Present illness Narrative Images from the original note were not included. [facility] Wound Care Progress Note CHIEF COMPLAINT: [...] Test Results/Process Orders 10 [] Staff telephones [employer], Nursing Homes/Clarify Orders 10 [x] Routine Transfer [...] or more Points) documented in this encounter [facility] 03-27-2024 Hospital Discharge instructions Giuliana Radford RN - 03/27/2024 3:00 PM EST Return Appointment in: 1 week - Should you experience any significant changes in your wound(s) or have any questions regarding your home care instructions please contact the wound center at [phone] If after regular business hours, please call [...] help with wound healing Nursing Care Facility: [facility] Bilateral legs resolved-Facility closed week - Facility [...] daily and PRN. documented in this encounter [facility] 03-27-2024 Hospital Discharge instructions Giuliana Radford RN - 03/27/2024 3:00 PM EST Return Appointment in: 1 week - Should you experience any significant changes in your wound(s) or have any questions regarding your home care instructions please contact the wound center at [phone] If after regular business hours, please call [...] help with wound healing Nursing Care Facility: [facility] Bilateral legs resolved-Facility closed week - Facility [...] daily and PRN. documented in this encounter [facility] 03-27-2024 Miscellaneous Notes Encounter addended by: Marycarmen Corona RN on: 03/28/2024 9:26 AM Actions taken: LDA properties accepted documented in this encounter [facility] 03-27-2024 Note Encounter addended b y: Marycarmen Corona RN on: 03/28/2024 9:26 AM Actions taken: LDA properties accepted [facility] 03-27-2024 Note [facility] Wound Care Progress Note CHIEF COMPLAINT: [...] plan. Please see attached Discharge Instructions [facility] 03-20-2024 Note [facility] Wound Care Progress Note CHIEF COMPLAINT: [...] plan. Please see attached Discharge Instructions [facility] 03-13-2024 Hospital Discharge instructions Giuliana Radford RN - 03/13/2024 2:30 PM EST Return Appointment in: 1 week - Should you experience any significant changes in your wound(s) or have any questions regarding your home care instructions please contact the wound center at [phone] If after regular business hours, please call [...] help with wound healing Nursing Care Facility: [facility] Wound Treatment to R toes- Daily Cleanse [...] daily and PRN. documented in this encounter [facility] 03-13-2024 Note [facility] Wound Care Progress Note CHIEF COMPLAINT: [...] plan. Please see attached Discharge Instructions [facility] 03-06-2024 Hospital Discharge instructions Giuliana Radford RN - 03/06/2024 10:30 AM EST Return Appointment in: 1 week - Should you experience any significant changes in your wound(s) or have any questions regarding your home care instructions please contact the wound center at [phone] If after regular business hours, please call [...] help with wound healing Nursing Care Facility: [facility] Wound Treatment to R toes- Daily Cleanse [...] daily and PRN. documented in this encounter [facility] 03-06-2024 Note [facility] Wound Care Progress Note CHIEF COMPLAINT: [...] plan. 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 [facility] Wound Care Progress Note CHIEF COMPLAINT: [...] Right;Dorsal (Active) Wound Image 02/28/24956 Site Assessment Granulation;Hurst;Sloughing 02/28/24956 Carine-Wound Assessment Dry 02/28/24956 Wound Length [...] provider verified the correct patient, procedure, equipment, system support administrator, and site/side marked as required. Debridement Details [...] attached Discharge Instructions documented in this encounter [facility] 02-28-2024 Hospital Discharge instructions Giuliana Radford RN - 02/28/2024 10:30 AM EST Return Appointment in: 1 week - Should you experience any significant changes in your wound(s) or have any questions regarding your home care instructions please contact the wound center at [phone] If after regular business hours, please call [...] lite applied for prevention. Nursing Care Facility: [facility] Wound Treatment to R toes- Daily Cleanse [...] daily and PRN. documented in this encounter [facility] 02-28-2024 Note [facility] Wound Care Progress Note CHIEF COMPLAINT: [...] (Active) Wound Image 02/28/24 956 Site Assessment Granulation;Hurst;Sloughing 02/28/24956 Carine-Wound Assessment Dry 02/28/24956 Wound Length [...] Wound Image 02/28/24955 Site Assessment Eschar;Painful 02/28/24955 Carnie-Wound Assessment Dry;Intact;Moist 02/28/24955 Wound Length (cm) 1.8 [...] provider verified the correct patient, procedure, equipment, system support administrator, and site/side marked as required. Debridement Details [...] plan. Please see attached Discharge Instructions [facility] 02-21-2024 Hospital Discharge instructions Giuliana Radford RN - 02/21/2024 9:45 AM EST Return Appointment in: 1 week - Should you experience any significant changes in your wound(s) or have any questions regarding your home care instructions please contact the wound center at [phone] If after regular business hours, please call [...] lite applied for prevention. Nursing Care Facility: [facility] Wound Treatment to R toes- Daily Cleanse [...] daily and PRN. documented in this encounter [facility] 02-21-2024 Note [facility] Wound Care Progress Note CHIEF COMPLAINT: [...] Right;Dorsal (Active) Wound Image 02/21/24948 Site Assessment Hurst;Granulation;Sloughing 02/21/24948 Carine-Wound Assessment Dry 02/21/24948 Wound Length [...] plan. Please see attached Discharge Instructions [facility] 02-18-2024 Emergency department Note Aamir bernard at bedside [facility] 02-18-2024 Emergency department Note Aamir bernard [...] of headache that was not relieved with Monroeton or Tylenol this evening at the senior living facility. The senior living facility sent him to the emergency department to be evaluated for his intractable headache. Nursing Notes were reviewed. 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) Pancreatic abscess 07/14/2022 Pancreatitis PVD (peripheral vascular disease) ([facility]) Reduced mobility Repeated falls SIRS (systemic inflammatory response syndrome) (HCC) TBI (traumatic brain injury) ([facility]) Venous insufficiency SURGICAL HISTORY Past [...] MG CAPSULE CHOLECALCIFEROL (VITAMIN D3) 1.25 MG (42292 UT) TABLET Take by mouth 1 (one) [...] Procedure Abnormality Status --------- ------ Comprehensive metabolic ...[[id number]] Abnormal Final result Please view results for [...] of headache that was not relieved with Monroeton or Tylenol this evening at the senior [...] AM PATIENT REFERRED TO: Demetrius Fenton [address] [facility] [address] DISCHARGE MEDICATIONS: New Prescriptions No [...] to year, oriented to month, according to detention he received norco and tylenol w no relief, per snf states he has constant headache documented in this encounter [facility] 02-18-2024 Emergency department Note Report called to [facility] at this time [facility] 02-18-2024 Hospital Discharge instructions Kaylee Bunch MD - 02/18/2024 2:49 AM EST Return if fever, focal numbness tingling weakness or as needed. The following attachments cannot be sent through Care Everywhere.Headache Discharge Instructions, Adult (Colombian)documented in this encounter [facility] 02-18-2024 Emergency department Triage note Pt presents with headache, 12/18, from snf, unsure was if he was given any meds at snf, alert and oriented x3, disoriented to year, oriented to month, according to detention he received norco and tylenol w no relief, per snf states he has constant headache [facility] 02-18-2024 Physician Emergency department Note EMERGENCY [...] of headache that was not relieved with Monroeton or Tylenol this evening at the senior living facility. The senior living facility sent him to the emergency department to be evaluated for his intractable headache. Nursing Notes were reviewed. Limitations to history: Altered mental status/confusion Outside historians: long term facility REVIEW OF SYSTEMS Review of Systems [...] MG CAPSULE CHOLECALCIFEROL (VITAMIN D3) 1.25 MG (66362 UT) TABLET Take by mouth 1 (one) [...] Procedure Abnormality Status --------- ------ Comprehensive metabolic ...[[id number]] Abnormal Final result Please view results for [...] of headache that was not relieved with Monroeton or Tylenol this evening at the senior [...] AM PATIENT REFERRED TO: Demetrius Fenton [address] [facility] [address] DISCHARGE MEDICATIONS: New Prescriptions No [...] Medicine Provider Kaylee Bunch MD 02/18/24 0250 [facility] 02-14-2024 History of Present illness Narrative Images from the original note were not included. [facility] Wound Care Progress Note CHIEF COMPLAINT: [...] Right;Dorsal (Active) Wound Image 02/14/24843 Site Assessment Granulation;Hurst 02/14/24843 Carine-Wound Assessment Moist 02/14/24843 Wound Length [...] attached Discharge Instructions documented in this encounter [facility] 02-14-2024 History of Present illness Narrative Images from the original note were not included. [facility] Wound Care Progress Note CHIEF COMPLAINT: [...] Right;Dorsal (Active) Wound Image 02/14/24843 Site Assessment Granulation;Hurst 02/14/24843 Carine-Wound Assessment Moist 02/14/24843 Wound Length [...] attached Discharge Instructions documented in this encounter [facility] 02-14-2024 Hospital Discharge instructions Giuliana Radford RN - 02/14/2024 8:45 AM EST Return Appointment in: 1 week - Should you experience any significant changes in your wound(s) or have any questions regarding your home care instructions please contact the wound center at [phone] If after regular business hours, please call [...] lite applied for prevention. Nursing Care Facility: [facility] Wound Treatment to R toes- Daily Cleanse [...] daily and PRN. documented in this encounter [facility] 02-14-2024 Hospital Discharge instructions Giuliana Radford RN - 02/14/2024 8:45 AM EST Return Appointment in: 1 week - Should you experience any significant changes in your wound(s) or have any questions regarding your home care instructions please contact the wound center at [phone] If after regular business hours, please call [...] lite applied for prevention. Nursing Care Facility: [facility] Wound Treatment to R toes- Daily Cleanse [...] daily and PRN. documented in this encounter [facility] 02-14-2024 Miscellaneous Notes Encounter addended by: Marycarmen Corona RN on: 02/15/2024 9:48 AM Actions taken: Charge Capture section accepted documented in this encounter [facility] 02-14-2024 Note Encounter addended b y: Marycarmen Corona RN on: 02/15/2024 9:48 AM Actions taken: Charge Capture section accepted [facility] 02-14-2024 Note [facility] Wound Care Progress Note CHIEF COMPLAINT: [...] Right;Dorsal (Active) Wound Image 02/14/24843 Site Assessment Granulation;Hurst 02/14/24843 Carine-Wound Assessment Moist 02/14/24843 Wound Length [...] Status New dressing;Clean, dry & intact 02/14/24 0893 1. 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 Venous insufficiency (chronic) (peripheral) 3. Decreased mobility Pt ed, reassure Alginate to toes Continue MLCD on R Reviewed s/s infection Recheck one wk, sooner prn Pt agrees with plan. Please see attached [facility] [facility] 02-07-2024 History of Present illness Narrative Images from the original note were not included. [facility] Wound Care Progress Note CHIEF COMPLAINT: [...] Right;Dorsal (Active) Wound Image 02/07/24923 Site Assessment Granulation;Hurst;Swelling 02/07/24923 Carine-Wound Assessment Boggy;Moist 02/07/24923 Wound Length [...] attached Discharge Instructions documented in this encounter [facility] 02-07-2024 Hospital Discharge instructions Giuliana Radford RN - 02/07/2024 8:45 AM EDT Return Appointment in: 1 week - Should you experience any significant changes in your wound(s) or have any questions regarding your home care instructions please contact the wound center at [phone] If after regular business hours, please call [...] Take antibiotic as directed Nursing Care Facility: [facility] Wound Treatment to R toes- Daily Cleanse [...] daily and PRN. documented in this encounter [facility] 02-07-2024 Miscellaneous Notes Encounter addended by: Adriana Barbosa MA on: 02/07/2024 10:26 AM Actions taken: Flowsheet accepted Encounter addended by: Marycarmen Corona RN on: 02/07/2024 10:59 AM Actions taken: Charge Capture section accepted documented in this encounter [facility] 02-07-2024 Note Encounter addended b y: Adriana Barbosa MA on: 02/07/2024 10:26 AM Actions taken: Flowsheet accepted [facility] 02-07-2024 Note Encounter addended b y: Marycarmen Corona RN on: 02/07/2024 10:59 AM Actions taken: Charge Capture section accepted [facility] 02-07-2024 Note Encounter addended b y: Adriana Barbosa MA on: 02/07/2024 10:26 AM Actions taken: Flowsheet accepted [facility] 02-07-2024 Note Encounter addended b y: Marycarmen Corona RN on: 02/07/2024 10:59 AM Actions taken: Charge Capture section accepted [facility] 02-07-2024 Note Encounter addended b y: Adriana Barbosa MA on: 02/07/2024 10:26 AM Actions taken: Flowsheet accepted [facility] 02-07-2024 Note Encounter addended b y: Marycarmen Corona RN on: 02/07/2024 10:59 AM Actions taken: Charge Capture section accepted [facility] 02-07-2024 Note Encounter addended b y: Adriana Barbosa MA on: 02/07/2024 10:26 AM Actions taken: Flowsheet accepted [facility] 02-07-2024 Note Encounter addended b y: Marycarmen Corona RN on: 02/07/2024 10:59 AM Actions taken: Charge Capture section accepted T [facility] 02-07-2024 Note [facility] Wound Care Progress Note CHIEF COMPLAINT: [...] Right;Dorsal (Active) Wound Image 02/07/24923 Site Assessment Granulation;Hurst;Swelling 02/07/24923 Carine-Wound Assessment Boggy;Moist 02/07/24923 Wound Length [...] plan. Please see attached Discharge Instructions [facility] 01-31-2024 History of Present illness Narrative Images from the original note were not included. [facility] Wound Care Progress Note CHIEF COMPLAINT: [...] Right;Dorsal (Active) Wound Image 01/31/24817 Site Assessment Granulation;Pale;Hurst 01/31/24817 Carine-Wound Assessment Moist 01/31/24817 Wound Length [...] attached Discharge Instructions documented in this encounter [facility] 01-31-2024 History of Present illness Narrative Images from the original note were not included. [facility] Wound Care Progress Note CHIEF COMPLAINT: [...] Right;Dorsal (Active) Wound Image 01/31/24817 Site Assessment Granulation;Pale;Hurst 01/31/24817 Carine-Wound Assessment Moist 01/31/24817 Wound Length [...] attached Discharge Instructions documented in this encounter [facility] 01-31-2024 Hospital Discharge instructions Giuliana Radford RN - 01/31/2024 8:45 AM EDT Return Appointment in: 1 week - Should you experience any significant changes in your wound(s) or have any questions regarding your home care instructions please contact the wound center at [phone] If after regular business hours, please call [...] Take antibiotic as directed Nursing Care Facility: [facility] Wound Treatment to R toes- Daily Cleanse [...] daily and PRN. documented in this encounter [facility] 01-31-2024 Hospital Discharge instructions Giuliana Radford RN - 01/31/2024 8:45 AM EDT Return Appointment in: 1 week - Should you experience any significant changes in your wound(s) or have any questions regarding your home care instructions please contact the wound center at [phone] If after regular business hours, please call [...] Take antibiotic as directed Nursing Care Facility: [facility] Wound Treatment to R toes- Daily Cleanse [...] daily and PRN. documented in this encounter [facility] 01-31-2024 Miscellaneous Notes Encounter addended by: Marycarmen Corona RN on: 02/02/2024 10:55 AM Actions taken: Charge Capture section accepted documented in this encounter [facility] 01-31-2024 Note Encounter addended b y: Marycarmen Corona RN on: 02/02/2024 10:55 AM Actions taken: Charge Capture section accepted [facility] 01-31-2024 Note [facility] Wound Care Progress Note CHIEF COMPLAINT: [...] Right;Dorsal (Active) Wound Image 01/31/24817 Site Assessment Granulation;Pale;Hurst 01/31/24817 Carine-Wound Assessment Moist 01/31/24817 Wound Length [...] plan. Please see attached Discharge Instructions [facility] 01-24-2024 History of Present illness Narrative Images from the original note were not included. [facility] Wound Care Progress Note CHIEF COMPLAINT: [...] attached Discharge Instructions documented in this encounter [facility] 01-24-2024 History of Present illness Narrative Images from the original note were not included. [facility] Wound Care Progress Note CHIEF COMPLAINT: [...] attached Discharge Instructions documented in this encounter [facility] 01-24-2024 Hospital Discharge instructions Giuliana Radford RN - 01/24/2024 10:00 AM EDT Return Appointment in: 1 week - Should you experience any significant changes in your wound(s) or have any questions regarding your home care instructions please contact the wound center at [phone] If after regular business hours, please call [...] Take antibiotic as directed Nursing Care Facility: [facility] Wound Treatment to R toes- Daily Cleanse [...] daily and PRN. documented in this encounter [facility] 01-24-2024 Hospital Discharge instructions Giuliana Radford RN - 01/24/2024 10:00 AM EDT Return Appointment in: 1 week - Should you experience any significant changes in your wound(s) or have any questions regarding your home care instructions please contact the wound center at [phone] If after regular business hours, please call [...] Take antibiotic as directed Nursing Care Facility: [facility] Wound Treatment to R toes- Daily Cleanse [...] daily and PRN. documented in this encounter [facility] 01-24-2024 Miscellaneous Notes Encounter addended by: Sharla Beard LPN on: 01/24/2024 10:57 AM Actions taken: Flowsheet accepted, Follow-up modified documented in this encounter [facility] 01-24-2024 Miscellaneous Notes Encounter addended by: Sharla Beard LPN on: 01/24/2024 10:57 AM Actions taken: Flowsheet accepted, Follow-up modified Encounter addended by: Marycarmen Corona RN on: 01/30/2024 3:44 PM Actions taken: LDA properties accepted, Charge Capture section accepted documented in this encounter [facility] 01-24-2024 Note Encounter addended b y: Sharla Beard LPN on: 01/24/2024 10:57 AM Actions taken: Flowsheet accepted, Follow-up modified [facility] 01-24-2024 Note Encounter addended b y: Sharla Beard LPN on: 01/24/2024 10:57 AM Actions taken: Flowsheet accepted, Follow-up modified [facility] 01-24-2024 Note Encounter addended b y: Sharla Beard LPN on: 01/24/2024 10:57 AM Actions taken: Flowsheet accepted, Follow-up modified [facility] 01-24-2024 Note Encounter addended b y: Sharla Beard LPN on: 01/24/2024 10:57 AM Actions taken: Flowsheet accepted, Follow-up modified T [facility] 01-24-2024 Note Encounter addended b y: Marycarmen Corona RN on: 01/30/2024 3:44 PM Actions taken: LDA properties accepted, Charge Capture section accepted [facility] 01-24-2024 Note Encounter addended b y: Sharla Beard LPN on: 01/24/2024 10:57 AM Actions taken: Flowsheet accepted, Follow-up modified [facility] 01-24-2024 Note [facility] Wound Care Progress Note CHIEF COMPLAINT: [...] plan. Please see attached Discharge Instructions [facility] 01-17-2024 History of Present illness Narrative Images from the original note were not included. [facility] Wound Care Progress Note CHIEF COMPLAINT: [...] (Active) Wound Image 01/17/24 100 Site Assessment Granulation;Hurst 01/17/24 1005 Carine-Wound Assessment Calloused;Moist 01/17/24 1005 [...] attached Discharge Instructions documented in this encounter [facility] 01-17-2024 Hospital Discharge instructions Giuliana Radford RN - 01/17/2024 9:45 AM EDT Return Appointment in: 1 week - Should you experience any significant changes in your wound(s) or have any questions regarding your home care instructions please contact the wound center at [phone] If after regular business hours, please call [...] Take antibiotic as directed Nursing Care Facility: [facility] Wound Treatment to R toes- Daily Cleanse [...] daily and PRN. documented in this encounter [facility] 01-17-2024 Note [facility] Wound Care Progress Note CHIEF COMPLAINT: [...] (Active) Wound Image 01/17/24 1005 Site Assessment Granulation;Hurst 01/17/24 1005 Carine-Wound Assessment Calloused;Moist 01/17/24 1005 [...] implied. Please see attached Discharge Instructions [facility] 01-10-2024 History of Present illness Narrative Images from the original note were not included. [facility] Wound Care Progress Note CHIEF COMPLAINT: [...] Right;Anterior (Active) Wound Image 01/10/24933 Site Assessment Granulation;Hurst 01/10/24933 Carine-Wound Assessment Maceration 01/10/24933 Wound Length [...] Right;Lower;Anterior;Lateral (Active) Wound Image 01/10/24935 Site Assessment Dry;Hurst 01/10/24935 Carine-Wound Assessment Dry 01/10/24935 Wound Length [...] attached Discharge Instructions documented in this encounter [facility] 01-10-2024 Hospital Discharge instructions Giuliana Radford RN - 01/10/2024 9:15 AM EDT Return Appointment in: 1 week - Should you experience any significant changes in your wound(s) or have any questions regarding your home care instructions please contact the wound center at [phone] If after regular business hours, please call [...] Take antibiotic as directed Nursing Care Facility: [facility] Wound Treatment to R toes- Daily Cleanse [...] daily and PRN. documented in this encounter [facility] 01-10-2024 Note [facility] Wound Care Progress Note CHIEF COMPLAINT: [...] Right;Anterior (Active) Wound Image 01/10/24933 Site Assessment Granulation;Hurst 01/10/24933 Carine-Wound Assessment Maceration 01/10/24933 Wound Length [...] Right;Lower;Anterior;Lateral (Active) Wound Image 01/10/24935 Site Assessment Dry;Hurst 01/10/24935 Carine-Wound Assessment Dry 01/10/24935 Wound Length [...] implied. Please see attached Discharge Instructions [facility] 01-03-2024 History of Present illness Narrative Images from the original note were not included. [facility] Wound Care Progress Note CHIEF COMPLAINT: [...] (Active) Wound Image 01/03/24 1523 Site Assessment Granulation;Pale;Hurst;Sloughing 01/03/24 1523 Carine-Wound Assessment Maceration;Edema 01/03/24 1523 [...] Site Assessment Dry;Eschar 01/03/24 1522 Carine-Wound Assessment Hurst 01/03/24 1522 Wound Length (cm) 1.5 cm [...] attached Discharge Instructions documented in this encounter [facility] 01-03-2024 Hospital Discharge instructions Giuliana Radford RN - 01/03/2024 3:15 PM EDT Return Appointment in: 1 week - Should you experience any significant changes in your wound(s) or have any questions regarding your home care instructions please contact the wound center at [phone] If after regular business hours, please call [...] Take antibiotic as directed Nursing Care Facility: [facility] Wound Treatment to R toes- Daily Cleanse [...] daily and PRN. documented in this encounter [facility] 01-03-2024 Note [facility] Wound Care Progress Note CHIEF COMPLAINT: [...] (Active) Wound Image 01/03/24 1523 Site Assessment Granulation;Pale;Hurst;Sloughing 01/03/24 1523 Carine-Wound Assessment Maceration;Edema 01/03/24 1523 [...] Site Assessment Dry;Eschar 01/03/24 1522 Carine-Wound Assessment Hurst 01/03/24 1522 Wound Length (cm) 1.5 cm [...] implied. Please see attached Discharge Instructions [facility] 12-27-2023 Hospital Discharge instructions Giuliana Radford RN - 12/27/2023 2:45 PM EDT Return Appointment in: 1 week - Should you experience any significant changes in your wound(s) or have any questions regarding your home care instructions please contact the wound center at [phone] If after regular business hours, please call [...] Take antibiotic as directed Nursing Care Facility: [facility] Wound Treatment to R toes- Daily Cleanse [...] daily and PRN. documented in this encounter [facility] 12-27-2023 Note [facility] Wound Care Progress Note CHIEF COMPLAINT: [...] (Active) Wound Image 12/27/23 1341 Site Assessment Granulation;Hurst;Sloughing 12/27/23 1341 Carine-Wound Assessment Maceration;Moist 12/27/23 1341 [...] (Active) Wound Image 12/27/23 134 Site Assessment Hurst;Red 12/27/23 134 Carine-Wound Assessment Dry 12/27/23 1340 [...] implied. Please see attached Discharge Instructions [facility] 12-20-2023 History of Present illness Narrative Images from the original note were not included. [facility] Wound Care Progress Note CHIEF COMPLAINT: [...] (Active) Wound Image 12/20/23 110 Site Assessment Granulation;Hurst;Red 12/20/231107 Carine-Wound Assessment Moist ;Maceration 12/20/23 1108 [...] attached Discharge Instructions documented in this encounter [facility] 12-20-2023 Hospital Discharge instructions Giuliana Radford RN - 12/20/2023 11:00 AM EDT Return Appointment in: 1 week - Should you experience any significant changes in your wound(s) or have any questions regarding your home care instructions please contact the wound center at [phone] If after regular business hours, please call [...] Take antibiotic as directed Nursing Care Facility: [facility] Wound Treatment to R toes- Daily Cleanse [...] daily and PRN. documented in this encounter [facility] 12-20-2023 Note [facility] Wound Care Progress Note CHIEF COMPLAINT: [...] Right;Anterior (Active) Wound Image 12/20/231107 Site Assessment Granulation;Hurst;Red 12/20/238 Carine-Wound Assessment Moist ;Maceration 12/20/23 1108 [...] implied. Please see attached Discharge Instructions [facility] 12-13-2023 History of Present illness Narrative Images from the original note were not included. [facility] Wound Care Progress Note CHIEF COMPLAINT: [...] (Active) Wound Image 12/13/23 153 Site Assessment Hurst;Red;Sloughing 12/13/23 153 Carine-Wound Assessment Moist ;Maceration 12/13/23 [...] attached Discharge Instructions documented in this encounter [facility] 12-13-2023 Hospital Discharge instructions Giuliana Radford RN - 12/13/2023 3:15 PM EDT Return Appointment in: 1 week - Should you experience any significant changes in your wound(s) or have any questions regarding your home care instructions please contact the wound center at [phone] If after regular business hours, please call [...] Take antibiotic as directed Nursing Care Facility: [facility] Wound Treatment to R toes- Daily [...] daily and PRN. documented in this encounter [facility] 12-13-2023 Miscellaneous Notes Encounter addended by: Renetta Majano LPN on: 12/13/2023 4:16 PM Actions taken: Flowsheet accepted documented in this encounter [facility] 12-13-2023 Note Encounter addended b y: Renetta Majano LPN on: 12/13/2023 4:16 PM Actions taken: Flowsheet accepted [facility] 12-13-2023 Note Encounter addended b y: Renetta Majano LPN on: 12/13/2023 4:16 PM Actions taken: Flowsheet accepted [facility] 12-13-2023 Note Encounter addended b y: Renetta Majano LPN on: 12/13/2023 4:16 PM Actions taken: Flowsheet accepted [facility] 12-13-2023 Note [facility] Wound Care Progress Note CHIEF COMPLAINT: [...] (Active) Wound Image 12/13/23 1532 Site Assessment Hurst;Red;Sloughing 12/13/23 153 Carine-Wound Assessment Moist ;Maceration 12/13/23 [...] implied. Please see attached Discharge Instructions [facility] 12-13-2023 Note Encounter addended b y: Renetta Majano LPN on: 12/13/2023 4:16 PM Actions taken: Flowsheet accepted [facility] 12-06-2023 History of Present illness Narrative Images from the original note were not included. [facility] Wound Care Progress Note CHIEF COMPLAINT: [...] (Active) Wound Image 12/06/23 1050 Site Assessment Hurst;Red;Sloughing 12/06/23 1050 Carine-Wound Assessment Moist ;Maceration 12/06/23 [...] (Active) Wound Image 12/06/23 1048 Site Assessment Dry;Hurst;Sloughing 12/06/23 1048 Carine-Wound Assessment Edema;Hurst 12/06/23 1048 Wound Length (cm) 4 cm [...] attached Discharge Instructions documented in this encounter [facility] 12-06-2023 Hospital Discharge instructions Giuliana Radford RN - 12/06/2023 10:30 AM EDT Return Appointment in: 1 week - Should you experience any significant changes in your wound(s) or have any questions regarding your home care instructions please contact the wound center at [phone] If after regular business hours, please call [...] Take antibiotic as directed Nursing Care Facility: [facility] Wound Treatment to R toes- Daily Cleanse [...] daily and PRN. documented in this encounter [facility] 12-06-2023 Note [facility] Wound Care Progress Note CHIEF COMPLAINT: [...] (Active) Wound Image 12/06/23 1050 Site Assessment Hurst;Red;Sloughing 12/06/23 1050 Carine-Wound Assessment Moist ;Maceration 12/06/23 [...] (Active) Wound Image 12/06/23 1048 Site Assessment Dry;Hurst;Sloughing 12/06/23 1048 Carine-Wound Assessment Edema;Hurst 12/06/23 1048 Wound Length (cm) 4 cm [...] implied. Please see attached Discharge Instructions [facility] 11-29-2023 History of Present illness Narrative Images from the original note were not included. [facility] Wound Care Progress Note CHIEF COMPLAINT: [...] attached Discharge Instructions documented in this encounter [facility] 11-29-2023 Hospital Discharge instructions Giuliana Radford RN - 11/29/2023 10:15 AM EDT Return Appointment in: 1 week - Should you experience any significant changes in your wound(s) or have any questions regarding your home care instructions please contact the wound center at [phone] If after regular business hours, please call [...] Take antibiotic as directed Nursing Care Facility: [facility] Wound Treatment to R toes- Daily Cleanse [...] daily and PRN. documented in this encounter [facility] 11-29-2023 Note [facility] Wound Care Progress Note CHIEF COMPLAINT: [...] implied. 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 [facility] Wound Care Progress Note CHIEF COMPLAINT: [...] provider verified the correct patient, procedure, equipment, system support administrator, and site/side marked as required. Debridement Details [...] attached Discharge Instructions documented in this encounter [facility] 11-22-2023 Hospital Discharge instructions Giuliana Radford RN - 11/22/2023 10:45 AM EDT Return Appointment in: 1 week - Should you experience any significant changes in your wound(s) or have any questions regarding your home care instructions please contact the wound center at [phone] If after regular business hours, please call [...] Take antibiotic as directed Nursing Care Facility: [facility] Wound Treatment to R toes- Daily Cleanse [...] daily and PRN. documented in this encounter [facility] 11-22-2023 Note [facility] Wound Care Progress Note CHIEF COMPLAINT: [...] implied. Please see attached Discharge Instructions [facility] 11-22-2023 Note [facility] Wound Care Progress Note CHIEF COMPLAINT: [...] provider verified the correct patient, procedure, equipment, system support administrator, and site/side marked as required. Debridement Details [...] Reviewed ac (more content not included)... [facility] 11-17-2023 History of Present illness Narrative Images from the original note were not included. [facility] Nurse Visit Note Moises [...] in this encounter. documented in this encounter [facility] 11-17-2023 Note Encounter addended b y: Marycarmen Corona RN on: 11/20/2023 7:52 AM Actions taken: Care Teams modified, Charge Capture section accepted [facility] 11-15-2023 History of Present illness Narrative Images from the original note were not included. [facility] Wound Care Progress Note CHIEF COMPLAINT: [...] Test Results/Process Orders 10 [] Staff telephones [facility], Nursing Homes/Clarify Orders 10 [] Routine [...] or more Points) documented in this encounter [facility] 11-15-2023 Hospital Discharge instructions Giuliana Radford RN - 11/15/2023 10:45 AM EDT Return Appointment in: 1 week - Should you experience any significant changes in your wound(s) or have any questions regarding your home care instructions please contact the wound center at [phone] If after regular business hours, please call [...] Take antibiotic as directed Nursing Care Facility: [facility] Wound Treatment to R toes- Daily Cleanse [...] daily and PRN. documented in this encounter [facility] 11-15-2023 Note [facility] Wound Care Progress Note CHIEF COMPLAINT: [...] or implied. Please see attached Discharge Instructions [facility] 11-08-2023 History of Present illness Narrative Images from the original note were not included. [facility] Wound Care Progress Note CHIEF COMPLAINT: [...] Right;Anterior (Active) Wound Image 11/08/23945 Site Assessment Painful;Pale;Hurst;Red;Sloughing 11/08/23945 Carine-Wound Assessment Macerated;Moist ;Painful 11/08/23945 Wound [...] Test Results/Process Orders 10 [x] Staff telephones [employer], Nursing Homes/Clarify Orders 10 [x] Routine Transfer [...] or more Points) documented in this encounter [facility] 11-08-2023 History of Present illness Narrative Images from the original note were not included. [facility] Wound Care Progress Note CHIEF COMPLAINT: [...] Right;Anterior (Active) Wound Image 11/08/23945 Site Assessment Painful;Pale;Hurst;Red;Sloughing 11/08/23945 Carine-Wound Assessment Macerated;Moist ;Painful 11/08/23945 Wound [...] Test Results/Process Orders 10 [x] Staff telephones [facility], Nursing Homes/Clarify Orders 10 [x] Routine [...] or more Points) documented in this encounter [facility] 11-08-2023 Hospital Discharge instructions Giuliana Radford RN - 11/08/2023 9:30 AM EDT Return Appointment in: 1 week - Should you experience any significant changes in your wound(s) or have any questions regarding your home care instructions please contact the wound center at [phone] If after regular business hours, please call [...] Take antibiotic as directed Nursing Care Facility: [facility] Wound Treatment to R toes and R leg: Daily Cleanse wound with mild soap and water and pat dry. Apply Calcium Alginate Apply dry dressing to cover the wound and secure with tape. Apply double tubi-[place] line attendant On Am/off PM OK to shower if wound dressing covered Apply Barrier Cream to bilateral buttocks and sacral area daily and PRN. documented in this encounter [facility] 11-08-2023 Hospital Discharge instructions Giuliana Radford RN - 11/08/2023 9:30 AM EDT Return Appointment in: 1 week - Should you experience any significant changes in your wound(s) or have any questions regarding your home care instructions please contact the wound center at [phone] If after regular business hours, please call [...] Take antibiotic as directed Nursing Care Facility: [facility] Wound Treatment to R toes and R leg: Daily Cleanse wound with mild soap and water and pat dry. Apply Calcium Alginate Apply dry dressing to cover the wound and secure with tape. Apply double tubi-[place] line attendant On Am/off PM OK to shower if wound dressing covered Apply Barrier Cream to bilateral buttocks and sacral area daily and PRN. documented in this encounter [facility] 11-08-2023 Miscellaneous Notes Encounter addended by: Marycarmen Corona RN on: 11/09/2023 10:22 AM Actions taken: Charge Capture section accepted documented in this encounter [facility] 11-08-2023 Note Encounter addended b y: Marycarmen Corona RN on: 11/09/2023 10:22 AM Actions taken: Charge Capture section accepted [facility] 11-08-2023 Note Encounter addended b y: Marycarmen Corona RN on: 11/09/2023 10:22 AM Actions taken: Charge Capture section accepted [facility] 11-08-2023 Note [facility] Wound Care Progress Note CHIEF COMPLAINT: [...] Right;Anterior (Active) Wound Image 11/08/23945 Site Assessment Painful;Pale;Hurst;Red;Sloughing 11/08/23945 Carine-Wound Assessment Macerated;Moist ;Painful 11/08/23945 Wound [...] implied. Please see attached Discharge Instructions [facility] 11-01-2023 History of Present illness Narrative Images from the original note were not included. [facility] Wound Care Progress Note CHIEF COMPLAINT: [...] (Active) Wound Image 11/01/23 08 Site Assessment Red;Hurst;Sloughing 11/01/23 08 Carine-Wound Assessment Macerated;Moist 11/01/23 08 [...] (Active) Wound Image 11/01/23 0858 Site Assessment Hurst 11/01/23 0858 Carine-Wound Assessment Dry 11/01/23 0858 [...] attached Discharge Instructions documented in this encounter [facility] 11-01-2023 Hospital Discharge instructions Giuliana Radford RN - 11/01/2023 8:30 AM EDT Return Appointment in: 1 week - Should you experience any significant changes in your wound(s) or have any questions regarding your home care instructions please contact the wound center at [phone] If after regular business hours, please call [...] Take antibiotic as directed Nursing Care Facility: [facility] Wound Treatment to R toes: Daily Cleanse [...] daily and PRN. documented in this encounter [facility] 11-01-2023 Miscellaneous Notes Encounter addended by: Marycarmen Corona RN on: 11/01/2023 11:27 AM Actions taken: Charge Capture section accepted documented in this encounter [facility] 11-01-2023 Note Encounter addended b y: Marycarmen Corona RN on: 11/01/2023 11:27 AM Actions taken: Charge Capture section accepted [facility] 11-01-2023 Note Encounter addended b y: Marycarmen Corona RN on: 11/01/2023 11:27 AM Actions taken: Charge Capture section accepted [facility] 11-01-2023 Note Encounter addended b y: Marycarmen Corona RN on: 11/01/2023 11:27 AM Actions taken: Charge Capture section accepted [facility] 11-01-2023 Note [facility] Wound Care Progress Note CHIEF COMPLAINT: [...] (Active) Wound Image 11/01/23 0856 Site Assessment Red;Hurst;Sloughing 11/01/23 0856 Carine-Wound Assessment Macerated;Moist 11/01/23 0856 [...] (Active) Wound Image 11/01/23 0858 Site Assessment Hurst 11/01/23 0858 Carine-Wound Assessment Dry 11/01/23 0858 [...] implied. 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 [facility] Wound Care Progress Note CHIEF COMPLAINT: [...] (Active) Wound Image 10/25/23 0855 Site Assessment Pale;Hurst;Sloughing 10/25/23 0855 Carine-Wound Assessment Maceration 10/25/23 0855 [...] (Active) Wound Image 10/25/23 0858 Site Assessment Pale;Hurst;Sloughing 10/25/23 0858 Carine-Wound Assessment Maceration 10/25/23 0858 [...] (Active) Wound Image 10/25/23 0857 Site Assessment Intact;Hurst 10/25/23 0857 Carine-Wound Assessment Intact 10/25/23 0857 [...] provider verified the correct patient, procedure, equipment, system support administrator, and site/side marked as required. Debridement Details [...] attached Discharge Instructions documented in this encounter [facility] 10-25-2023 Hospital Discharge instructions Giuliana Radford RN - 10/25/2023 8:30 AM EDT Return Appointment in: 1 week - Should you experience any significant changes in your wound(s) or have any questions regarding your home care instructions please contact the wound center at [phone] If after regular business hours, please call [...] Take antibiotic as directed Nursing Care Facility: [facility] Wound Treatment: Wound: right toes and RLE Dressing Frequency: Dressing weekly Wound Cleansing: OK to shower if wound dressing covered Apply hydrafera blue Secondary Dressing: Superabsorbent pad or sorbex Secure With: Kerlex Roll gauze 4", Silk Tape 1" Compression: Unna deniseren profjanet lite Apply Barrier Cream to bilateral buttocks and sacral area daily and PRN. documented in this encounter [facility] 10-25-2023 Note [facility] Wound Care Progress Note CHIEF COMPLAINT: [...] (Active) Wound Image 10/25/23 08 Site Assessment Pale;Hurst;Sloughing 10/25/23 08 Carine-Wound Assessment Maceration 10/25/23 08 [...] (Active) Wound Image 10/25/23 0858 Site Assessment Pale;Hurst;Sloughing 10/25/23 0858 Carine-Wound Assessment Maceration 10/25/23 0858 [...] (Active) Wound Image 10/25/23 0857 Site Assessment Intact;Hurst 10/25/23 0857 Carine-Wound Assessment Intact 10/25/23 0857 [...] provider verified the correct patient, procedure, equipment, system support administrator, and site/side marked as required. Debridement Details Performed by (more content not included)... [facility] 10-18-2023 History of Present illness Narrative Images from the original note were not included. [facility] Wound Care Progress Note CHIEF COMPLAINT: [...] (Active) Wound Image 10/18/23 1046 Site Assessment Pale;Hurst;Sloughing;Maceration 10/18/23 1046 Carine-Wound Assessment Maceration 10/18/23 1046 [...] (Active) Wound Image 10/18/23 1044 Site Assessment Maceration;Pale;Hurst;Sloughing 10/18/23 1044 Carine-Wound Assessment Macerated;Pale 10/18/23 1044 [...] (Active) Wound Image 10/18/23 1049 Site Assessment Maceration;Hurst 10/18/23 1049 Carine-Wound Assessment Moist 10/18/23 1049 [...] attached Discharge Instructions documented in this encounter [facility] 10-18-2023 History of Present illness Narrative Images from the original note were not included. [facility] Wound Care Progress Note CHIEF COMPLAINT: [...] (Active) Wound Image 10/18/23 1046 Site Assessment Pale;Hurst;Sloughing;Maceration 10/18/23 1046 Carine-Wound Assessment Maceration 10/18/23 1046 [...] (Active) Wound Image 10/18/23 1044 Site Assessment Maceration;Pale;Hurst;Sloughing 10/18/23 1044 Carine-Wound Assessment Macerated;Pale 10/18/23 1044 [...] (Active) Wound Image 10/18/23 1049 Site Assessment Maceration;Hurst 10/18/23 1049 Carine-Wound Assessment Moist 10/18/23 1049 [...] attached Discharge Instructions documented in this encounter [facility] 10-18-2023 Hospital Discharge instructions Marycarmen Corona RN - 10/18/2023 10:15 AM EDT Return Appointment in: 1 week - Should you experience any significant changes in your wound(s) or have any questions regarding your home care instructions please contact the wound center at [phone] If after regular business hours, please call [...] Take antibiotic as directed Nursing Care Facility: [facility] Wound Treatment: Wound: right toes Dressing Frequency: [...] daily and PRN. documented in this encounter [facility] 10-18-2023 Hospital Discharge instructions Marycarmen Corona RN - 10/18/2023 10:15 AM EDT Return Appointment in: 1 week - Should you experience any significant changes in your wound(s) or have any questions regarding your home care instructions please contact the wound center at [phone] If after regular business hours, please call [...] Take antibiotic as directed Nursing Care Facility: [facility] Wound Treatment: Wound: right toes Dressing Frequency: [...] daily and PRN. documented in this encounter [facility] 10-18-2023 Miscellaneous Notes Encounter addended by: Marycarmen Corona RN on: 10/20/2023 11:57 AM Actions taken: LDA properties accepted documented in this encounter [facility] 10-18-2023 Note Encounter addended b y: Marycarmen Corona RN on: 10/20/2023 11:57 AM Actions taken: LDA properties accepted [facility] 10-18-2023 Note [facility] Wound Care Progress Note CHIEF COMPLAINT: [...] (Active) Wound Image 10/18/23 1046 Site Assessment Pale;Hurst;Sloughing;Maceration 10/18/23 1046 Carine-Wound Assessment Maceration 10/18/23 1046 [...] (Active) Wound Image 10/18/23 1044 Site Assessment Maceration;Pale;Hurst;Sloughing 10/18/23 104 Carine-Wound Assessment Macerated;Pale 10/18/23 1044 [...] (Active) Wound Image 10/18/23 1049 Site Assessment Maceration;Hurst 10/18/23 1049 Carine-Wound Assessment Moist 10/18/23 1049 [...] Order Specifi (more content not included)... 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 [facility] Wound Care Progress Note CHIEF COMPLAINT: [...] (Active) Wound Image 10/04/23 1407 Site Assessment Granulation;Painful;Pale;Hurst;Slou ghing 10/11/23 0909 Carine-Wound Assessment Maceration 10/11/23 [...] Wound Image 10/11/23 09 Site Assessment Dark edges;Painful;Hurst;Sloughing 10/11/23 09 Carine-Wound Assessment Moist ;Dark edges [...] provider verified the correct patient, procedure, equipment, system support administrator, and site/side marked as required. Debridement Details [...] provider verified the correct patient, procedure, equipment, system support administrator, and site/side marked as required. Debridement Details [...] attached Discharge Instructions documented in this encounter [facility] 10-11-2023 Hospital Discharge instructions Debbie Mckeon RN - 10/11/2023 8:45 AM EDT Return Appointment in: 1 week - Should you experience any significant changes in your wound(s) or have any questions regarding your home care instructions please contact the wound center at [phone] If after regular business hours, please call [...] help with wound healing Nursing Care Facility: [facility] Wound Treatment: Wound: right toes Dressing Frequency: Keep dressing in place all week Wound Cleansing: May shower with protection - Protect wound and dressing with water repellant cover/cast cover (e.g., large plastic bag) which can be obtained at [facility] and may take shower. Hold Collagen AG for now Secondary Dressing: Calcium Alginate 4x4 Secure With: Kerlex Roll gauze 4", Silk Tape 1" Compression: Unna boot & multilayer compression wrap - 3 layers (cover toes) Apply Barrier Cream to bilateral buttocks and sacral area daily and PRN. documented in this encounter [facility] 10-11-2023 Note [facility] Wound Care Progress Note CHIEF COMPLAINT: [...] (Active) Wound Image 10/04/23 1407 Site Assessment Granulation;Painful;Pale;Hurst;Slou ghing 10/11/23 0909 Carine-Wound Assessment Maceration 10/11/23 [...] Wound Image 10/11/23 09 Site Assessment Dark edges;Painful;Hurst;Sloughing 10/11/23912 Carine-Wound Assessment Moist ;Dark edges 10/11/23912 [...] provider verified the correct patient, procedure, equipment, system support administrator, and site/side marked as required. Debridement Details [...] provider verified the correct patient, procedure, equipment, system support administrator, and site/side marked as required. Debridement Details Performed by: physician Debridement type: surgical Level of debridement: subcutaneous tissue Pain control: lidocaine 2% Pain control administration type: topical Pre-debridement measurements Length (cm): 0. (more content not included)... 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 [facility] Wound Care Progress Note CHIEF COMPLAINT: [...] (Active) Wound Image 10/04/23 1407 Site Assessment Painful;Pale;Hurst;Sloughing 10/04/23 1407 Carine-Wound Assessment Macerated 10/04/23 1407 [...] (Active) Wound Image 10/04/23 1410 Site Assessment Hurst;Pale 10/04/23 1410 Carine-Wound Assessment Macerated 10/04/23 1410 [...] provider verified the correct patient, procedure, equipment, system support administrator, and site/side marked as required. Debridement Details [...] provider verified the correct patient, procedure, equipment, system support administrator, and site/side marked as required. Debridement Details [...] attached Discharge Instructions documented in this encounter [facility] 10-04-2023 Hospital Discharge instructions Lucinda Lima RN - 10/04/2023 1:45 PM EDT Return Appointment in: 1 week - Should you experience any significant changes in your wound(s) or have any questions regarding your home care instructions please contact the wound center at [phone] If after regular business hours, please call [...] help with wound healing Nursing Care Facility: [facility] Wound Treatment: Wound: right toes Dressing Frequency: Keep dressing in place all week Wound Cleansing: May shower with protection - Protect wound and dressing with water repellant cover/cast cover (e.g., large plastic bag) which can be obtained at [facility] and may take shower. Primary Dressing: Collagen Ag 2x2 Secondary Dressing: Calcium Alginate 4x4 Secure With: Kerlex Roll gauze 4", Silk Tape 1" Compression: Unna boot & multilayer compression wrap - 3 layers (cover toes) Apply Barrier Cream to bilateral buttocks and sacral area daily and PRN. documented in this encounter [facility] 10-04-2023 Note [facility] Wound Care Progress Note CHIEF COMPLAINT: [...] (Active) Wound Image 10/04/23 140 Site Assessment Painful;Pale;Hurst;Sloughing 10/04/23 140 Carine-Wound Assessment Macerated 10/04/23 140 [...] (Active) Wound Image 10/04/23 141 Site Assessment Hurst;Pale 10/04/23 141 Carine-Wound Assessment Macerated 10/04/23 141 [...] provider verified the correct patient, procedure, equipment, system support administrator, and site/side marked as required. Debridement Details [...] provider verified the correct patient, procedure, equipment, system support administrator, and site/side marked as required. Debridement Details Performed by: physician Debridement type: surgical Level of debridement: subcutaneous tissue Pain control: lidocaine 2% Pain control administration type: topical Pre-debridem (more content not included)... [facility] 09-27-2023 History of Present illness Narrative Images from the original note were not included. [facility] Wound Care Progress Note CHIEF COMPLAINT: [...] (Active) Wound Image 09/27/23 1322 Site Assessment Maceration;Pale;Hurst;Sloughing;Yesenia nful 09/27/23 1322 Carine-Wound Assessment Macerated 09/27/23 [...] (Active) Wound Image 09/27/23 132 Site Assessment Hurst;Pale 09/27/23 132 Carine-Wound Assessment Macerated 09/27/23 1320 [...] attached Discharge Instructions documented in this encounter [facility] 09-27-2023 Hospital Discharge instructions Erika Canseco [place] - 09/27/2023 1:15 PM EDT Return Appointment in: 1 week - Should you experience any significant changes in your wound(s) or have any questions regarding your home care instructions please contact the wound center at [phone] If after regular business hours, please call [...] help with wound healing Nursing Care Facility: [facility] Wound Treatment: Wound: right toes Dressing Frequency: Keep dressing in place all week Wound Cleansing: May shower with protection - Protect wound and dressing with water repellant cover/cast cover (e.g., large plastic bag) which can be obtained at [facility] and may take shower. Primary Dressing: Collagen Ag 2x2 Secondary Dressing: Calcium Alginate 4x4 Secure With: Kerlex Roll gauze 4", Silk Tape 1" Compression: Unna boot & multilayer compression wrap - 3 layers (cover toes) documented in this encounter [facility] 09-27-2023 Hospital Discharge instructions Erika Cruz - 09/27/2023 1:15 PM EDT Return Appointment in: 1 week - Should you experience any significant changes in your wound(s) or have any questions regarding your home care instructions please contact the wound center at [phone] If after regular business hours, please call [...] help with wound healing Nursing Care Facility: [facility] Wound Treatment: Wound: right toes Dressing Frequency: Keep dressing in place all week Wound Cleansing: May shower with protection - Protect wound and dressing with water repellant cover/cast cover (e.g., large plastic bag) which can be obtained at [facility] and may take shower. Primary Dressing: Collagen Ag 2x2 Secondary Dressing: Calcium Alginate 4x4 Secure With: Kerlex Roll gauze 4", Silk Tape 1" Compression: Unna boot & multilayer compression wrap - 3 layers (cover toes) documented in this encounter [facility] 09-27-2023 Miscellaneous Notes Encounter addended by: Marycarmen Corona RN on: 10/05/2023 3:58 PM Actions taken: Charge Capture section accepted documented in this encounter [facility] 09-27-2023 Note Encounter addended b y: Marycarmen Corona RN on: 10/05/2023 3:58 PM Actions taken: Charge Capture section accepted [facility] 09-27-2023 Note Encounter addended b y: Marycarmen Corona RN on: 10/05/2023 3:58 PM Actions taken: Charge Capture section accepted [facility] 09-27-2023 Note [facility] Wound Care Progress Note CHIEF COMPLAINT: [...] (Active) Wound Image 09/27/23 132 Site Assessment Maceration;Pale;Hurst;Sloughing;Yesenia nful 09/27/23 132 Carine-Wound Assessment Macerated 09/27/23 [...] (Active) Wound Image 09/27/23 132 Site Assessment Hurst;Pale 09/27/23 1320 Carine-Wound Assessment Macerated 09/27/23 1320 [...] boot Please see attached Discharge Instructions [facility] 09-20-2023 History of Present illness Narrative Images from the original note were not included. [facility] Wound Care Progress Note CHIEF COMPLAINT: [...] (Active) Wound Image 09/20/23 1447 Site Assessment Maceration;Pale;Hurst;Sloughing 09/20/23 144 Carine-Wound Assessment Macerated 09/20/23 1447 [...] (Active) Wound Image 09/20/23 1445 Site Assessment Pale;Hurst;Maceration 09/20/23 1445 Carine-Wound Assessment Maceration 09/20/23 1445 [...]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 He read over the office notes and approved CT. Auth # [id number] Valid 09/30/2022 - 10/30/2022 [facility] 10-03-2022 Telephone encounter Note Please get a peer to peer scheduled. I can do today or Monday before 10 or after 1:30. [facility] 10-03-2022 Telephone encounter Note Why was this denied? He had a peripancreatic abscess which should necessitate a repeat CT to check for resolution. Was this code used when submitted for auth? [facility] 10-03-2022 Telephone encounter Note Auth for Repeat CT denied. Sent to Marito to advise [facility] 09-08-2022 Telephone encounter Note Noted. Checklist changed. [facility] Work Phone: 09-08-2022 Miscellaneous Notes Noted. Checklist changed. Pt surgery r/s to 11/01, spoke w Mi from the [facility] who confirmed this was okay and lvm [...] plan as discussed. documented in this encounter [facility] 09-08-2022 Telephone encounter Note Pt surgery r/s to 11/01, spoke alicia Stark from the [facility] who confirmed this was okay and lvm for brother kash. All other appts stayed the same. [facility] 08-01-2022 Telephone encounter Note Spoke with [...] so will proceed with plan as discussed. [facility] [employer] Work Phone: 08-01-2022 Miscellaneous Notes Spoke with [...] plan as discussed. documented in this encounter [facility] 07-29-2022 History of Present illness Narrative [facility] - Surgery [facility] Physicians Surgery Patient Name: Moises Madrid Date: [...] except for what is listed in HPI. [facility] notes 06/07/22-06/23/[address] A/P 06/13/22 reviewed US abd 06/13/22 reviewed PMHx: Past Medical History: Diagnosis Date Anxiety Ataxia Bipolar disorder (HCC) Chronic pain Constipation Contracture, right hand Depression Dysphagia Dysphagia Dysphonia Edema GERD (gastroesophageal reflux disease) Headache Hemiplegia (CMS/HCC) (HCC) Hyperlipidemia Hypertension Insomnia Muscle weakness Neuropathy TBI (traumatic brain injury) ([facility]) PSHx: Past Surgical History: Procedure [...] MG tablet cholecalciferol (Vitamin D3) 1.25 MG (00390 UT) tablet Take by mouth 1 (one) time per week. cloNIDine (Catapres) 0.1 MG tablet divalproex sprinkle (Depakote Sprinkle) [address] capsule Take 2 capsules (250 mg) by mouth in the morning and 2 capsules (250 mg) before bedtime. 120 capsule 11 ergocalciferol (Vitamin D2) 1.25 MG (96651 UT) capsule famotidine (Pepcid) 20 MG tablet Take by mouth. furosemide (Lasix) 40 MG tablet gabapentin (Neurontin) 100 MG capsule gabapentin (Neurontin) 300 MG capsule guaiFENesin (Mucinex) 600 MG 12 hr tablet Take 1 tablet (600 mg) by mouth 2 times daily. Do not crush, chew, or split. 60 tablet 11 HYDROcodone-acetaminophen ([place]eton) 5-325 MG tablet ketoconazole (NIZOral) 2 % [...] caregiver. His brother is his power of commercial attorney and he was not present today. [...] General (Internal Medicine) documented in this encounter [facility] 07-29-2022 History of Present illness Narrative [facility] - Surgery [facility] Physicians Surgery Patient Name: Moises Madrid Date: [...] except for what is listed in HPI. [facility] notes 06/07/22-06/23/[address] A/P 06/13/22 reviewed [...] MG tablet cholecalciferol (Vitamin D3) 1.25 MG (69851 UT) tablet Take by mouth 1 (one) time per week. cloNIDine (Catapres) 0.1 MG tablet divalproex sprinkle (Depakote Sprinkle) [address] capsule Take 2 capsules (250 mg) by mouth in the morning and 2 capsules (250 mg) before bedtime. 120 capsule 11 ergocalciferol (Vitamin D2) 1.25 MG (15203 UT) capsule famotidine (Pepcid) 20 MG tablet Take by mouth. furosemide (Lasix) 40 MG tablet gabapentin (Neurontin) 100 MG capsule gabapentin (Neurontin) 300 MG capsule guaiFENesin (Mucinex) 600 MG 12 hr tablet Take 1 tablet (600 mg) by mouth 2 times daily. Do not crush, chew, or split. 60 tablet 11 HYDROcodone-acetaminophen ([place]roeton) 5-325 MG tablet ketoconazole (NIZOral) 2 % [...] caregiver. His brother is his power of commercial attorney and he was not present today. [...] date/time is okay documented in this encounter [facility] 07-29-2022 History of Present illness Narrative [facility] - Surgery [facility] Physicians Surgery Patient [...] except for what is listed in HPI. [facility] notes 06/07/22-06/23/[address] A/P 06/13/22 reviewed US abd 06/13/22 reviewed PMHx: Past Medical History: Diagnosis Date Anxiety Ataxia Bipolar disorder ([facility]) Chronic pain Constipation Contracture, right hand Depression Dysphagia Dysphagia Dysphonia Edema GERD (gastroesophageal reflux disease) Headache Hemiplegia (CMS/HCC) ([facility]) Hyperlipidemia Hypertension Insomnia Muscle weakness Neuropathy TBI (traumatic brain injury) ([facility]) PSHx: Past Surgical History: Procedure [...] MG tablet cholecalciferol (Vitamin D3) 1.25 MG (67503 UT) tablet Take by mouth 1 (one) time per week. cloNIDine (Catapres) 0.1 MG tablet divalproex sprinkle (Depakote Sprinkle) [address] capsule Take 2 capsules (250 mg) by mouth in the morning and 2 capsules (250 mg) before bedtime. 120 capsule 11 ergocalciferol (Vitamin D2) 1.25 MG (41000 UT) capsule famotidine (Pepcid) 20 MG tablet Take by mouth. furosemide (Lasix) 40 MG tablet gabapentin (Neurontin) 100 MG capsule gabapentin (Neurontin) 300 MG capsule guaiFENesin (Mucinex) 600 MG 12 hr tablet Take 1 tablet (600 mg) by mouth 2 times daily. Do not crush, chew, or split. 60 tablet 11 HYDROcodone-acetaminophen (Monroeton) 5-325 MG tablet ketoconazole (NIZOral) 2 % [...] caregiver. His brother is his power of commercial attorney and he was not present today. [...] for: Date: 10/26/2022 Time: 2:15 pm Location: [place] Information will be relayed to [facility] and to Bill his guardian. Orders in [employer]. Auth pending Yes Bill will also be contacted Spoke with Cayden from the [facility] and she stated that the 02 of November would be ok for surgery. Would like a call back to discuss further details. Surgery scheduled for 11/02/2022, all dates/times including CT relayed to blake from [facility] and his brother kash. documented in this encounter [facility] 07-28-2022 Telephone encounter Note Patient has been scheduled [facility] 07-28-2022 Miscellaneous Notes Patient has been scheduled Called and spoke to Cayden. She is going to see about transportation and call me back Called and spoke to Nela at [facility] to see if patient had transportation due to Dr Musa does have an opening this Monday07/29/2022 at 12 pm Referral received. Will give to Dr uMsa for approval and schedule patient Cayden from [facility] calling said she is re faxing Referral over and would like to get an appointment for him. lvm Noted will call Cayden from the [facility] [place] regarding a referral that was sent over yesterday for a gall bladder. Please call her to schedule. documented in this encounter [facility] 07-28-2022 Telephone encounter Note Called and spoke to Cayden. She is going to see about transportation and call me back [facility] 07-27-2022 Telephone encounter Note Called and spoke to Nela at [facility] to see if patient had transportation due to Dr Musa does have an opening this Monday07/29/2022 at 12 pm [facility] 07-27-2022 Telephone encounter Note Referral received. Will give to Dr Musa for approval and schedule patient [facility] 07-26-2022 Telephone encounter Note Cayden from [facility] calling said she is re faxing Referral over and would like to get an appointment for him. [facility] 07-20-2022 Telephone encounter Note lvm [facility] 07-18-2022 Telephone encounter Note Noted will call [facility] 07-15-2022 Telephone encounter Note [facility] from [facility] [place] regarding a referral that was sent over yesterday for a gall bladder. Please call her to schedule. [facility] 06-23-2022 History of Present illness Narrative [...] follow closely with you Zeynep Wyatt APRN, FUNERAL DIRECTOR [facility], [place] [phone] office I have reviewed the above assessment and plan with the HOOKMAN. I agree with above note. Na levels acceptable. Nutrition Assessment Type and Reason for Visit: Reassess Nutrition Recommendations/Plan: Recommend continue Minced and Moist diet with Mildly thick liquids per JACQUARD [employer]OM CARPET WEAVER recommendations. Pt mostly consuming 51-75% of meals, reports improvement with diet advancement. Per MNT protocol and pt request, will change flavor of magic cup to vanilla and continue to send Pro-stat. Noted pt's HgbA1c 6.9. Will defer to MD whether pt's diet should include CHO restriction. Noted potential plans for DC soon. DM diet education not appropriate as pt lives at detention. Monitor weight, labs, I/Os, skin integrity and [...] mass loss Fluid Accumulation: Mild Extremities, Generalized Hand Funnel Coater Strength: Not Performed Nutrition Assessment: 61yo male [...] advanced to minced and moist 06/22 per JACQUARD LOOM CARPET WEAVER, remains with nectar thick liquids. ID and [...] On: Kcal/kg Weight Used for Energy Requirements: Elsie Weight for Energy Calculation (kg): 86 kg Total Energy Requirements (kcals/day): 25--30 or 2930-6061 Weight Used for Protein Requirements: Elsie Weight in Kg Used for Protein Requirements: [...] Dysphagia - Minced and Moist; Mildly Thick ([place]) Current Oral Intake Average Meal Intake: 26-50%, [...] 03/2019 248#) % Weight Change (Calculated): 0.5 Elsie Body Weight (lbs) (Calculated): 190 lbs Elsie Body Weight (Kg) (Calculated): 86 kg % Elsie Body Weight (Calculated): 131.1 % BMI (kg/m2) (Calculated): 32 BMI Categories: Obese Class 1 (BMI 30.0-34.9) Nutrition Interventions: Nutrition Education/Counseling: Education not appropriate (Pt not appropriate for DM diet education, he resides at a detention) Coordination of Nutrition Care: Continue to monitor [...] Continue current diet Brandi Ferreira RD Contact: *[phone] Cardiology Progress Note Patient Name: Moises Madrid Patient Age: 61 y.o. Date: 06/23/2022 Alert, comfortable stable SUBJECTIVE: pt. In isolation Sob.c/o abd. Pain. No cp. PANCREATITIS. CHOLECYSTITIS. RENAL STONE, Stress . >> nl.. ef=65 % Leucocytosis.>>20. Blood yaaiu=887 mg. Gi consult reviewed. More alert. No [...] : GIB No Renal : CKD No BRAKE REPAIRER : CVA/TIA No Musculoskeletal system : DJD [...] QT Interval 352 QTC Interval 479 P Harbert 43 QRS Harbert -36 T Wave Harbert 60 NE Interval 160 Impression SINUS TACHYCARDIA LEFT AXIS [...] RENAL STONE, HYPONATREMIA, NA-=129. > RESTRICT FLUIDS. Vd=750. Cr0.88/22. na >>low= 126. NSR. STABLE. SLOWLY IMPROVING. LESS ABD. PAIN. TOLERATING FOOD. PLAN : Chest pain>>>Stress test normal., ef=65 %NO CP TODAY, CP DUE TO PANCREATITIS. Noncardiac cp. CARDIAC STATUS IS STABLE. Essential hypertension, benign>>>Meds Hyperlipidemia>>Meds>>Meds Troponin=0.012. ekg no change, Dr. Dickerson and advise changing Zosyn to Ertapenem therapy on 06/14. However, patient vital signs change becoming more tachycardic, tachypneic and febrile nd=752.>>111. BP= 143/85 MMHG. Ef=65 %. Pt/ot.DIET. UP IN CHAIR. SHELTON HERMAN M.D., [facility] 06/23/2022 Images from the original note were not included. Hospitalist Progress Note 06/22/2022 [phone]: Please page me ([phone]) for patient care issues. [phone]: Please page [facility] night Hospitalist for any issues. Subjective: Admit Date: 06/07/2022 PCP: Demetrius Fenton Room#: 232-06/232-06 A Interval History: No overnight issues. Denies chest pain, sob, abdominal pain, nausea, vomiting, diarrhea, constipation, fevers, or chills. Adult diet Dysphagia - Minced and Moist; Mildly Thick ([place]) @[id number]@ 24HR INTAKE/OUTPUT: Intake/Output Summary (Last 24 hours) [...] and now on RA. # Dysphagia - JACQUARD [employer]PET WEAVER following. Recommended Minced and Moist (Dysphagia II), Liquid Consistency Mildly Thick ([place]) # Coronavirus positive - per ID, No [...] Plan Continue dysphagia diet as recommended per JACQUARD LOOM CARPET WEAVER. Meanwhile, ID and surgery signed off. Surgery has cleared for discharge. However sodium still 129. Per nephrology who is managing, sodium will need to be over 130 for discharge. Discharge plan per [facility] is to return to [facility] when medically stable. Tomorrow?? Check daily labs. [...] MD Division of Hospitalist Medicine Inpatient Medical Services/[facility] PAGER: [email or web address] chat Speech-Language Pathology Facility/Department: [place] [address] DYSPHAGIA TREATMENT NAME: Moises Madrid : 1960 [...] Dysphagia - Minced and Moist; Mildly Thick ([place]) Diet effective now Question Answer Comment Diet type Dysphagia - Minced and Moist Fluid consistency Mildly Thick ([place]) 06/22/22 1230 06/13/22 1358 Supplement:Lunch, Dinner; Chocolate [...] II) Current Liquid Diet : Mildly Thick ([place]) Dentition: Edentulous Patient Positioning: Upright in bed [...] (Dysphagia II) Liquid Consistency Recommendation: Mildly Thick ([place]) Recommended Form of Meds: Meds in puree [...] to advance as tolerated. Treatment Plan Requires JACQUARD [employer]PET WEAVER Intervention: Yes Frequency/Duration: Frequency of Treatment: 3 [...] . >> nl.. ef=65 % Leucocytosis.>>20. Blood lmzjk=952 mg. Gi consult reviewed. More alert. No [...] : GIB No Renal : CKD No BRAKE REPAIRER : CVA/TIA No Musculoskeletal system : DJD [...] QT Interval 352 QTC Interval 479 P Harbert 43 QRS Harbert -36 T Wave Harbert 60 NE Interval 160 Impression SINUS TACHYCARDIA LEFT AXIS [...] RENAL STONE, HYPONATREMIA, NA-=129. > RESTRICT FLUIDS. Wj=539. Cr0.88/22. na >>low= 126. SLOWLY IMPROVING. LESS ABD. PAIN. TOLERATING FOOD. PLAN : Chest pain>>>Stress test normal., ef=65 %NO CP TODAY, CP DUE TO PANCREATITIS. Noncardiac cp. CARDIAC STATUS IS STABLE. Essential hypertension, benign>>>Meds Hyperlipidemia>>Meds>>Meds Troponin=0.012. ekg no change, Dr. Dickerson and advise changing Zosyn to Ertapenem therapy on 06/14. However, patient vital signs change becoming more tachycardic, tachypneic and febrile jq=052.>>111. BP= 143/85 MMHG. Ef=65 %. Pt/ot.DIET. SHELTON HERMAN M.D., [facility] 06/22/2022 .. [facility] Progress [...] any questions or concerns. Brenda Blanco APRN, FUNERAL DIRECTOR [facility], [facility] [phone] office I have reviewed the above assessment and plan with the HOOKMAN. I agree with above note. Na levels acceptable. C/w protein intake. Treat nausea. Tighter glycemic control needed. Speech-Language Pathology Facility/Department: 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 Allergies Allergen Reactions Hydralazine Unknown Sulfamethoxazole-Trimethoprim Unknown Temazepam Unknown Tramadol Unknown Clindamycin Rash Burn, rash Burn, rash Oxygen Level: O2 Device: Room air Current Diet Level: Dietary Orders (From admission, onward) Start Ordered 06/21/22 1520 Adult diet Dysphagia - Pureed; 1500 ml; Mildly Thick ([place]); Low Fat (less than or equal to 50 gm/day) Diet effective now Question Answer Comment Diet type Dysphagia - Pureed Dietary fluid restriction / 24h: 1500 ml Fluid consistency Mildly Thick ([place]) GI restriction: Low Fat (less than or [...] (Dysphagia II) Liquid Consistency Recommendation: Mildly Thick ([place]) Recommended Form of Meds: Meds in puree [...] Continue mildly thick liquis. Treatment Plan Requires JACQUARD LOOM [employer]PET WEAVER Intervention: Yes Frequency/Duration: Frequency of Treatment: 3 days/wk for Duration of Treatment: 2 weeks Therapy Time JACQUARD [employer] WEAVER Individual Minutes Time In: 1537 Time Out: [...] any questions or concerns. Brenda Blanco APRN, FUNERAL DIRECTOR [facility] [employer] [facility] [phone] office Seen and examined. Agree with above [...] Dysphagia - Pureed; 1500 ml; Mildly Thick ([place]); Low Fat (less than or equal to [...] 10 mg, 10 mg, Rectal, Daily PRN, Mnai Edgar DO dextrose 5 % infusion, 100 [...] , Topical, PRN, Bertha Rodrigez APRN - FUNERAL DIRECTOR, Given at 06/18/22 2123 venlafaxine (Effexor) tablet 75 mg, 75 mg, Oral, BID, Ira Marin ASSET COORDINATOR - FUNERAL DIRECTOR, 75 mg at 06/21/22 0852 Assessment Data: [...] MD Division of Hospitalist Medicine Inpatient Medical Services/[facility] Cardiology Progress Note Patient Name: Moises Madrid Patient Age: 61 y.o. Date: 06/21/2022 Alert, comfortable stable SUBJECTIVE: pt. In isolation Sob.c/o abd. Pain. No cp. PANCREATITIS. CHOLECYSTITIS. RENAL STONE, Stress . >> nl.. ef=65 % Leucocytosis.>>20. Blood ngpdx=703 mg. Gi consult reviewed. More alert. No [...] : GIB No Renal : CKD No BRAKE REPAIRER : CVA/TIA No Musculoskeletal system : DJD [...] QT Interval 352 QTC Interval 479 P Harbert 43 QRS Harbert -36 T Wave Harbert 60 NE Interval 160 Impression SINUS TACHYCARDIA LEFT AXIS DEVIATION LATE PRECORDIAL R/S TRANSITION LEFT VENTRICULAR HYPERTROPHY Electronically Signed On 06-10-2022 9:55:05 EST by Dimple [facility] Echo: Transthoracic echocardiogram (TTE) complete with contrast, [...] RENAL STONE, HYPONATREMIA, NA-=129. > RESTRICT FLUIDS. Rt=774. Cr0.88/22. na >>low= 126. SLOWLY IMPROVING. LESS ABD. PAIN. TOLERATING FOOD. PLAN : Chest pain>>>Stress test normal., ef=65 %NO CP TODAY, CP DUE TO PANCREATITIS. Noncardiac cp. CARDIAC STATUS IS STABLE. Essential hypertension, benign>>>Meds Hyperlipidemia>>Meds>>Meds Troponin=0.012. ekg no change, Dr. Dickerson and advise changing Zosyn to Ertapenem therapy on 06/14. However, patient vital signs change becoming more tachycardic, tachypneic and febrile qe=934.>>111. BP= 143/85 MMHG. Ef=65 %. Pt/ot. SHELTON HEMRAN M.D., [facility] 06/21/2022 Images from the original note were not included. [facility] Wound Care Progress Note Moises Madrid [...] mouth Nightly. cholecalciferol (Vitamin D3) 1.25 MG (88352 UT) tablet Take by mouth 1 (one) [...] Do not crush, chew, or split. HYDROcodone-acetaminophen ([place]roeton) 5-325 MG tablet Take 1 tablet by [...] Apply topically if needed for dry skin. [place]-3 Fatty Acids (Fish Oil) 1000 MG capsule [...] miconazole powder BID Please follow up at [facility] [place] [facility] [place] after hospital discharge. I personally obtained the [...] my own independent evaluation of this patient. [facility] - Infectious Diseases Attending Progress Note Subjective: [...] of pancreat[facility]. H/o EtOH use. 2 No evidence [...] opportunity to participate in this patient's care. [facility] - Surgery [facility] Physicians Surgery Patient Name: Moises Madrid Date: [...] chart review was performed. Remigio Napier MD [facility] General Surgery 4:07 PM 06/21/2022 GENERAL SURGERY [...] Adult diet Dysphagia - Pureed; Mildly Thick ([place]); Low Fat (less than or equal to [...] mg, Oral, Daily, Ira Marin APRN - FUNERAL DIRECTOR, 5 mg at 06/20/22 0828 aspirin chewable [...] MD Division of Hospitalist Medicine Inpatient Medical Services/[facility] - Infectious Diseases Attending [...] of pancreatitis in this [facility]. 2 No evidence of active infection [...] any questions or concerns. Brenda Blanco APRN, FUNERAL DIRECTOR [facility], [facility] [phone] office Seen and examined. Agree with above A and p. Need nausea control and more protein intake PO to address hyponatremia. Speech-Language Pathology Facility/Department: [facility] HICU DYSPHAGIA TREATMENT NAME: Moises Madrid [...] Adult diet Dysphagia - Pureed; Mildly Thick ([place]); Low Fat (less than or equal to 50 gm/day) Diet effective now Question Answer Comment Diet type Dysphagia - Pureed Fluid consistency Mildly Thick ([place]) GI restriction: Low Fat (less than or [...] (Dysphagia I) Liquid Consistency Recommendation: Mildly Thick ([place]) Recommended Form of Meds: Crushed in puree [...] and moist for advancement. Treatment Plan Requires JACQUARD LOOM CARPET WEAVER Intervention: Yes Frequency/Duration: Frequency of Treatment: 3 days/wk for Duration of Treatment: 2 weeks Therapy Time JACQUARD [employer]PET WEAVER Individual Minutes Time In: 1231 Time Out: 1258 Minutes: 27 ALISHA Canchola 06/20/2022 1:24 PM Occupational Therapy Facility/Department: [facility] Occupational Therapy Treatment NAME: Moises Madrid : 1960 Date of Service: 06/20/2022 Discharge Recommendations: Subacute/Prison Facility Assessment Performance deficits / Impairments: Decreased [...] of right foot with fat layer exposed ([facility]) were also pertinent to this [...] Ther Act) GRANT Workman Physical Therapy Facility/Department: [facility] Physical Therapy Daily Treatment Note NAME: Moises Madrid : 1960 Date of Service: 06/20/2022 Discharge Recommendations: Subacute/Prison Facility PT Equipment Recommendations Equipment Needed: (TBD [...] of Hyperkalemia, EDWARDO (acute kidney injury) (CMS/HCC) ([facility]), Chest pain on breathing, Stable angina pectoris (CMS/HCC) ([facility]), 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 has a past medical history of Anxiety, Ataxia, Bipolar disorder ([facility]), Chronic pain, Constipation, Contracture, right [...] Minutes (1 ther act) Angle Ignacio PTA [facility] - Surgery [facility] Physicians Surgery Patient Name: Moises Madrid Date: [...] chart review was performed. Remigio Napier MD [facility] General Surgery 3:21 PM 06/20/2022 GENERAL SURGERY [...] proceed with plan. Raimundo Riley APRN - FUNERAL DIRECTOR Cardiology Progress Note Patient Name: Moises Madrid Patient Age: 61 y.o. Date: 06/20/2022 Alert, comfortable stable SUBJECTIVE: pt. In isolation Sob.c/o abd. Pain. No cp. PANCREATITIS. CHOLECYSTITIS. RENAL STONE, Stress . >> nl.. ef=65 % Leucocytosis.>>20. Blood hgwrf=077 mg. Gi consult reviewed. More alert. No cp.pulse ox=96. VITALS BP 130/80 (BP Location: Left arm, Patient Position: Lying) Pulse 104 Temp 37.9 C (100.2 F) (Oral) Resp 21 Ht 6' 2" (1.88 m) Wt 250 lb 14.1 oz (114 kg) SpO2 93% BMI 32.21 kg/m I&O Intake/Output Summary (Last 24 hours) at 06/20/2022 0926 Last data filed at 06/20/2022 0600 Gross [...] : GIB No Renal : CKD No BRAKE REPAIRER : CVA/TIA No Musculoskeletal system : DJD [...] QT Interval 352 QTC Interval 479 P Harbert 43 QRS Harbert -36 T Wave Harbert 60 NE Interval 160 Impression SINUS TACHYCARDIA LEFT AXIS [...] RENAL STONE, HYPONATREMIA, NA-=129. > RESTRICT FLUIDS. Zq=080. Cr0.88/22. na >>low= 126. PLAN : Chest pain>>>Stress test normal., ef=65 %NO CP TODAY, CP DUE TO PANCREATITIS. Noncardiac cp. CARDIAC STATUS IS STABLE. Essential hypertension, benign>>>Meds Hyperlipidemia>>Meds>>Meds Troponin=0.012. ekg no change, Dr. Dickerson and advise changing Zosyn to Ertapenem therapy on 06/14. However, patient vital signs change becoming more tachycardic, tachypneic and febrile zf=506.>>111. BP= 143/85 MMHG. Ef=65 %. Pt/ot. SHELTON HERMAN M.D., [facility] 06/20/2022 Images from the original note were not included. [facility] - Infectious Diseases Attending [...] of pancreat[facility]. 2 No evidence of active infection [...] . >> nl.. ef=65 % Leucocytosis.>>20. Blood itvwh=695 mg. Gi consult reviewed. Very lethargic & [...] : GIB No Renal : CKD No BRAKE REPAIRER : CVA/TIA No Musculoskeletal system : DJD [...] QT Interval 352 QTC Interval 479 P Harbert 43 QRS Harbert -36 T Wave Harbert 60 NE Interval 160 Impression SINUS TACHYCARDIA LEFT AXIS [...] RENAL STONE, HYPONATREMIA, NA-=129. > RESTRICT FLUIDS. Qy=975. Cr0.88/22. PLAN : Chest pain>>>Stress test normal., ef=65 %NO CP TODAY, CP DUE TO PANCREATITIS. Noncardiac cp. CARDIAC STATUS IS STABLE. Essential hypertension, benign>>>Meds Hyperlipidemia>>Meds>>Meds Troponin=0.012. ekg no change, Dr. Dickerson and advise changing Zosyn to Ertapenem therapy on 06/14. However, patient vital signs change becoming more tachycardic, tachypneic and febrile gs=896.>>111. BP= 143/85 MMHG. SHELTON HERMAN M.D., [facility] 06/19/2022 .. [facility] Progress Note Subjective/ 61 y.o. [...] were not included. Hospitalist Progress Note 06/19/2022 [phone]: Please page me ([phone]) for patient care issues. [phone]: Please page [facility] Hospitalist for any issues. Subjective: Admit Date: 06/07/2022 PCP: Demetrius Fenton Room#: 232-06/232-06 A Interval History: No overnight events. Feels better this am. Ao x 3. Breathing non-labored and remains on 2 L NC. Denies chest pain, nausea, vomiting, abdominal pain, diarrhea or constipation. Adult diet Dysphagia - Pureed; Mildly Thick ([place]); Low Fat (less than or equal to 50 gm/day) @[id number]@ 24HR INTAKE/OUTPUT: Intake/Output Summary (Last 24 hours) at 06/19/2022 0835 Last data filed at 06/19/2022 0500 Gross per 24 hour Intake 2260 ml Output 2115 ml Net 145 ml Past Medical History: Past Medical History: Diagnosis Date Anxiety Ataxia Bipolar disorder ([facility]) Chronic pain Constipation Contracture, right hand Depression Dysphagia Dysphagia Dysphonia Edema GERD (gastroesophageal reflux disease) Headache Hemiplegia (CMS/HCC) ([facility]) Hyperlipidemia Hypertension Insomnia Muscle weakness [...] (last 21 days) XR chest 1 view [[id number]] Collected: 06/16/22427 Order Status: Completed Updated: 06/16/22516 [...] 4:29 AM EST XR chest 1 view [[id number]] Collected: 06/15/22 1132 Order Status: Completed Updated: [...] Units Date/Time CT abdomen pelvis w contrast [[id number]] Collected: 06/13/222204 Order Status: Completed Updated: 06/13/222220 [...] 06/13/2022 10:20 PM EST US abdomen limited [[id number]] Collected: 06/13/22823 Order Status: Completed Updated: 06/13/22829 Narrative: [facility]ID [facility] 1960 [id number] Exam Date/Time: 06/13/2022 07:20 Procedure: US ABDOMEN [...] sonographic Cole's sign reported by the registered radiologic technologist. Pancreas: Obscured by bowel gas. Right [...] 8:29 AM EST XR chest 1 view [[id number]] Collected: 06/12/22 1254 Order Status: Completed Updated: [...] PM EST XR foot 3+ views right [[id number]] Collected: 06/12/22 1250 Order Status: Completed Updated: [...] EST CT guided abscess fluid collection drainage [[id number]] Collected: 06/10/221606 Order Status: Completed Updated: 06/10/221609 Narrative: Patient Name: MOISES MADRID [facility] 1960 [id number] Exam Date/Time: 06/10/2022 14:50 Procedure: CT GUIDED ABSCESS FLUID COLLECTION DRAINAGE Ordering Provider: EDGAR JONATHAN Reason For Exam: PROCEDURE: Drainage catheter placement Procedural Personnel Attending physician(s): Jus Barlow Indication: Peripancreatic fluid collection Additional clinical history: None Complications: No immediate complications. Impression: Percutaneous placement of a 10 Tuvaluan drainage catheter into peripancreatic fluid collection, yielding [...] fluid collection - Drainage catheter placed: 10 Tuvaluan APD - External catheter securement: Non-absorbable suture [...] EST CT abdomen pelvis wo IV contrast [[id number]] Collected: 06/10/22914 Order Status: Completed Updated: 06/10/22930 Narrative: Patient Name: MOISES MADRID : 1960 [id number] Exam Date/Time: 06/10/2022 08:50 Procedure: CT ABDOMEN [...] 9:30 AM EST XR chest 1 view [[id number]] Collected: 06/10/22843 Order Status: Completed Updated: 06/10/22850 [...] 8:50 AM EST XR chest 1 view [[id number]] Collected: 06/07/222325 Order Status: Completed Updated: 06/07/222327 Narrative: Patient Name: MOISES MADRID : 1960 [id number] Exam Date/Time: 06/07/2022 23:25 Procedure: XR CHEST [...] disorder Medical Decision Making -Patient presents to [facility] ED from SNF on 06/08 with complaints [...] MD Division of Hospitalist Medicine Inpatient Medical Services/[facility] PAGER: Epic chat Images from the original note were not included. [facility] - Infectious Diseases Attending Progress Note [place]: 61 y/o s/p remote CVA and hemiplegia presented from [facility] on 06/07/22 with acute substernal CP [...] . >> nl.. ef=65 % Leucocytosis.>>20. Blood bwnpp=475 mg. Gi consult reviewed. Very lethargic & [...] : GIB No Renal : CKD No BRAKE REPAIRER : CVA/TIA No Musculoskeletal system : DJD [...] QT Interval 352 QTC Interval 479 P Harbert 43 QRS Harbert -36 T Wave Harbert 60 NE Interval 160 Impression SINUS TACHYCARDIA LEFT AXIS [...] RENAL STONE, HYPONATREMIA, NA-=129. > RESTRICT FLUIDS. Py=837. Cr0.88/22. PLAN : Chest pain>>>Stress test normal., ef=65 %NO CP TODAY, Noncardiac cp. CARDIAC STATUS IS STABLE. Essential hypertension, benign>>>Meds Hyperlipidemia>>Meds>>Meds Troponin=0.012. ekg no change, Dr. Dickerson and advise changing Zosyn to Ertapenem therapy on 06/14. However, patient vital signs change becoming more tachycardic, tachypneic and febrile rm=266. SHELTON HERMAN M.D., [facility] 06/18/2022 Images from the original note were not included. Hospitalist Progress Note 06/18/2022 [phone]: Please page me ([phone]) for patient care issues. [phone]: Please page [facility] Hospitalist for any issues. Subjective: Admit Date: 06/07/2022 PCP: Demetrius Fenton Room#: 232-06/232-06 A Interval History: No overnight events. Patient AO x 3 this am. Feels much better. Tolerated breakfast. States that he feels improved. Remains tachycardic and on 4 L NC. Denies chest pain, nausea, vomiting, abdominal pain, diarrhea or constipation. Adult diet Dysphagia - Pureed; Mildly Thick ([place]); Low Fat (less than or equal to 50 gm/day) @[id number]@ 24HR INTAKE/OUTPUT: Intake/Output Summary (Last 24 hours) [...] (last 21 days) XR chest 1 view [[id number]] Collected: 06/16/22427 Order Status: Completed Updated: 06/16/22516 Narrative: Patient Name: MOISES MADRID : 1960 [id number] Exam Date/Time: 06/16/2022 05:16 Procedure: XR CHEST [...] 4:29 AM EST XR chest 1 view [[id number]] Collected: 06/15/22 113 Order Status: Completed Updated: [...] Units Date/Time CT abdomen pelvis w contrast [[id number]] Collected: 06/13/222204 Order Status: Completed Updated: 06/13/222220 [...] Date/Time: 06/13/2022 10:20 PM EST abdomen limited [[id number]] Collected: 06/13/22823 Order Status: Completed Updated: 06/13/22829 [...] sonographic Cole's sign reported by the registered radiologic technologist. Pancreas: Obscured by bowel gas. Right [...] 8:29 AM EST XR chest 1 view [[id number]] Collected: 06/12/22 1254 Order Status: Completed Updated: 06/12/22 1257 Narrative: Patient Name: MOISES MADRID : 1960 [id number] Exam Date/Time: 06/12/2022 12:43 Procedure: XR CHEST [...] PM EST XR foot 3+ views right [[id number]] Collected: 06/12/22 1250 Order Status: Completed Updated: [...] EST CT guided abscess fluid collection drainage [[id number]] Collected: 06/10/22 1607 Order Status: Completed Updated: 06/10/22 1610 Narrative: Patient Name: MOISES MADRID : 1960 Exam Date/Time: 06/10/2022 14:50 Procedure: CT GUIDED ABSCESS FLUID COLLECTION DRAINAGE Ordering Provider: EDGAR JONATHAN Reason For Exam: PROCEDURE: Drainage catheter placement Procedural Personnel Attending physician(s): Jus Barlow Indication: Peripancreatic fluid collection Additional clinical history: None Complications: No immediate complications. Impression: Percutaneous placement of a 10 Tu[place] drainage catheter into peripancreatic fluid collection, yielding [...] fluid collection - Drainage catheter placed: 10 Tu[place]uan APD - External catheter securement: Non-absorbable suture [...] EST CT abdomen pelvis wo IV contrast [[id number]] Collected: 06/10/22914 Order Status: Completed Updated: 06/10/22930 Narrative: Patient Name: MOISES MADRID : 1960 [facility]#: [id number] Exam Date/Time: 06/10/2022 08:50 Procedure: CT ABDOMEN [...] 9:30 AM EST XR chest 1 view [[id number]] Collected: 06/10/22843 Order Status: Completed Updated: 06/10/22850 [...] 8:50 AM EST XR chest 1 view [[id number]] Collected: 06/07/222325 Order Status: Completed Updated: 06/07/222327 [...] disorder Medical Decision Making -Patient presents to [facility] ED from SNF on 06/08 with complaints [...] MD Division of Hospitalist Medicine Inpatient Medical Services/[facility] PAGER: Epic chat .. [facility] [...] from the original note were not included. [facility] Wound Care Progress Note Moises Madrid [...] History: Diagnosis Date Anxiety Ataxia Bipolar disorder ([facility]) Chronic pain Constipation Contracture, right hand Depression Dysphagia Dysphagia Dysphonia Edema GERD (gastroesophageal reflux disease) Headache Hemiplegia (CMS/HCC) ([facility]) Hyperlipidemia Hypertension Insomnia Muscle weakness [...] mouth Nightly. cholecalciferol (Vitamin D3) 1.25 MG (46956 UT) tablet Take by mouth 1 (one) [...] Do not crush, chew, or split. HYDROcodone-acetaminophen ([place]) 5-325 MG tablet Take 1 tablet by [...] Apply topically if needed for dry skin. [place]-3 Fatty Acids (Fish Oil) 1000 MG capsule [...] miconazole powder BID Please follow up at [facility] after hospital discharge. I personally obtained [...] own independent evaluation of this patient. .. [facility] Progress Note Subjective/ 61 y.o. [...] Unable to assess Fluid Accumulation: Mild Generalized Hand Funnel Coater Strength: Measurable reduction in virginia line attendant strength Nutrition Assessment: per MD-Interval History: More [...] On: Kcal/kg Weight Used for Energy Requirements: Elsie Weight for Energy Calculation (kg): 86 kg Total Energy Requirements (kcals/day): 25--30 or 0551-6133 Weight Used for Protein Requirements: Elsie Weight in Kg Used for Protein Requirements: 86 kg Estimated Total Protein (g/day): 1.0-1.2 or 86-103 Estimated Daily Total Fluid (ml/day): or per md Nutrition Related Findings: weak virginia line attendant ,altered mental status,+2 bl;trace upper ,generalized edema-variable po, na 130, glu 181,lipase 1078,alb 3.1,nh3- 13-wounds improved, / bm Wound Type: Multiple, Deep Tissue Injury, Stage II, Moisture Associate Skin Damage (jennie 11-13 -dti buttock- r and left buttock, stage 2 toe,abd fold excoriation) Current Nutrition Therapies: Adult diet Dysphagia - Pureed; Mildly Thick ([place]); Low Fat (less than or equal to [...] (248-253 lbs) % Weight Change (Calculated): 2 Elsie Body Weight (lbs) (Calculated): 190 lbs Elsie Body Weight (Kg) (Calculated): 86 kg % Elsie Body Weight (Calculated): 132.3 % BMI (kg/m2) (Calculated): 32.3 BMI Categories: Obese Class 1 (BMI 30.0-34.9) Nutrition Diagnosis: Inadequate protein-energy intake, Increased nutrient needs related to other (comment), acute injury/trauma, psychological cause or life stress (abscess with drain) as evidenced by wounds, reduced virginia line attendant strength, poor intake prior to admission, intake [...] Oral Nutrition Supplement Eugenia Sauer RD Contact: *[phone] or [employer] chat Occupational Therapy Facility/Department: [facility] Occupational Therapy Treatment NAME: Moises Madrid : 1960 Date of Service: 06/17/2022 Discharge Recommendations: Subacute/Prison Facility Assessment Performance deficits / Impairments: Decreased [...] of right foot with fat layer exposed ([facility]) were also pertinent to this visit. has a past medical history of Anxiety, Ataxia, Bipolar disorder ([facility]), Chronic pain, Constipation, Contracture, right [...] . >> nl.. ef=65 % Leucocytosis.>>20. Blood fgjbv=327 mg. Gi consult reviewed. Very lethargic & [...] : GIB No Renal : CKD No BRAKE REPAIRER : CVA/TIA No Musculoskeletal system : DJD [...] QT Interval 352 QTC Interval 479 P Harbert 43 QRS Harbert -36 T Wave Harbert 60 NE Interval 160 Impression SINUS TACHYCARDIA LEFT AXIS [...] tachycardic, tachypneic and febrile SHELTON HERMAN M.D., [facility] 06/17/2022 [facility] Medical [facility] - Surgery [facility] Physicians Surgery Patient Name: Moises Madrid Date: [...] chart review was performed. Remigio Napier MD [facility] General Surgery 12:57 PM 06/17/2022 GENERAL SURGERY [...] proceed with plan. Raimundo Riley APRN - FUNERAL DIRECTOR Images from the original note were not included. [facility] - Infectious Diseases Attending Progress Note Subjective: [...] 0401 Blood culture #2 - Suspected Infection [[id number]] Blood, Venous Preliminary result Component Value Blood Culture No growth at 24 hours P 06/15/2022 2105 06/17/2022 0401 Blood culture #1 - Suspected Infection [[id number]] Blood, Venous Preliminary result Component Value Blood Culture No growth at 24 hours P 06/15/2022 1011 06/17/2022 0933 Respiratory culture [[id number]] (Abnormal) Sputum Final result Component Value Respiratory culture Few respiratory vikram present. Gram Stain Result Moderate Polymorphonuclear leukocytes per low power field Abnormal Moderate Epithelial cells per low power field Abnormal Rare Gram positive cocci Abnormal Rare Gram negative diplococci Abnormal 06/15/2022 1010 06/15/2022 2127 Pneumonia PCR Panel [[id number]] (Abnormal) Sputum Final result Component Value Staphylococcus [...] 06/11/2022 1334 06/12/2022 0002 Pneumonia PCR Panel [[id number]] Sputum Final result Component Value Staphylococcus aureus [...] Detected 06/11/2022 1334 06/13/2022 0722 Respiratory culture [[id number]] Sputum Preliminary result Component Value Respiratory culture Rare respiratory vikram present. P Gram Stain Result Rare Epithelial cells per low power field P Moderate Polymorphonuclear leukocytes per low power field P No organisms seen P 06/10/2022 1433 06/13/2022 0924 Aerobic and Anaerobic Culture with Stain [[id number]] Abscess from Abdomen In process Component Value No component results 06/10/2022 1433 06/13/2022 0924 Culture, Aerobic Bacteria with Gram Stain [[id number]] Abscess from Abdomen Final result Component Value Culture No growth at 72 hours Gram Stain Result Rare Polymorphonuclear leukocytes per low power field No organisms seen Corrected result: Previously reported as Few Gram negative cocci (see Result History) on 06/11/2022 at 1209 EST 06/10/2022 1433 06/12/2022 1200 Anaerobic culture [[id number]] Abscess from Abdomen Preliminary result Component Value Culture No growth to date. Incubation continues P 06/10/2022 1243 06/10/2022 2302 Legionella and Streptococcus Urine Antigen [[id number]] Urine, Clean Catch Final result Component Value Legionella pneumophila Ag Not Detected Streptococcus pneumoniae Ag Not Detected 06/10/2022 1000 06/10/2022 1338 SARS-CoV-2 and Respiratory PCR Panel [[id number]] Swab from Nasopharynx Final result Component Value [...] 1401 Blood culture #1 - Suspected Infection [[id number]] Blood, Venous Preliminary result Component Value Blood Culture No growth at 72 hours P 06/10/2022 0958 06/13/2022 1401 Blood culture #2 - Suspected Infection [[id number]] Blood, Venous Preliminary result Component Value Blood Culture No growth at 72 hours P 06/07/2022 2345 06/08/2022 0035 SARS-CoV-2, Flu A/B, and RSV Combo [[id number]] Swab from Nasopharynx Final result Component Value SARS-CoV-2 Not Detected Respiratory Syncytial Virus Not Detected Influenza A Not Detected Influenza B Not Detected Lines: PIV site ok Radiography/Echo/Other: Reviewed CT abdomen pelvis w contrast [[id number]] Collected: 06/13/222204 Order Status: Completed Updated: 06/13/222220 Narrative: [facility] Name: MOISES MADRID [facility] 1960 [id number] Exam Date/Time: 06/13/2022 17:39 Procedure: CT ABDOMEN [...] Component Value Units Date/Time US abdomen limited [[id number]] Collected: 06/13/22823 Order Status: Completed Updated: 06/13/22829 [...] sonographic Cole's sign reported by the registered radiologic technologist. Pancreas: Obscured by bowel gas. Right [...] 8:29 AM EST XR chest 1 view [[id number]] Collected: 06/12/22 1254 Order Status: Completed Updated: 06/12/22 1257 Narrative: Patient Name: MOISES MADRID : 1960 [id number] Exam Date/Time: 06/12/2022 12:43 Procedure: XR CHEST [...] PM EST XR foot 3+ views right [[id number]] Collected: 06/12/22 1250 Order Status: Completed Updated: [...] EST CT guided abscess fluid collection drainage [[id number]] Collected: 06/10/22 160 Order Status: Completed Updated: 06/10/22 1610 Narrative: Patient Name: MOISES MADRID : 1960 Exam Date/Time: 06/10/2022 14:50 Procedure: CT GUIDED ABSCESS FLUID COLLECTION DRAINAGE Ordering Provider: EDGAR JONATHAN Reason For Exam: PROCEDURE: Drainage catheter placement Procedural Personnel Attending physician(s): Jus Barlow Indication: Peripancreatic fluid collection Additional clinical history: None Complications: No immediate complications. Impression: Percutaneous placement of a 10 Tu[place] drainage catheter into peripancreatic fluid collection, yielding [...] fluid collection - Drainage catheter placed: 10 Tu[place]uan APD - External catheter securement: Non-absorbable suture [...] EST CT abdomen pelvis wo IV contrast [[id number]] Collected: 06/10/22914 Order Status: Completed Updated: 06/10/22930 Narrative: Patient Name: MOISES MARDID : 1960 [id number] Exam Date/Time: 06/10/2022 08:50 Procedure: CT ABDOMEN [...] 9:30 AM EST XR chest 1 view [[id number]] Collected: 06/10/22843 Order Status: Completed Updated: 06/10/22850 [...] 8:50 AM EST XR chest 1 view [[id number]] Collected: 06/07/222325 Order Status: Completed Updated: 06/07/222327 [...] were not included. Hospitalist Progress Note 06/17/2022 [phone]: Please page me ([phone]) for patient care issues. [phone]: Please page [facility] Hospitalist for any issues. Subjective: Admit Date: 06/07/2022 PCP: Demetrius Fenton Room#: 232-06/232-06 A Interval History: More alert this am. AO x 3 on exam. Feels slightly better but remains acutely ill. Adult diet Dysphagia - Pureed; Moderately Thick ([place]); Low Fat (less than or equal to 50 gm/day) @[id number]@ 24HR INTAKE/OUTPUT: Intake/Output Summary (Last 24 hours) [...] (last 21 days) XR chest 1 view [[id number]] Collected: 06/16/22427 Order Status: Completed Updated: 06/16/22516 Narrative: Patient Name: MOISES MADRID : 1960 [id number] Exam Date/Time: 06/16/2022 05:16 Procedure: XR CHEST [...] 4:29 AM EST XR chest 1 view [[id number]] Collected: 06/15/22 1132 Order Status: Completed Updated: [...] Units Date/Time CT abdomen pelvis w contrast [[id number]] Collected: 06/13/222204 Order Status: Completed Updated: 06/13/222220 [...] 06/13/2022 10:20 PM EST US abdomen limited [[id number]] Collected: 06/13/22823 Order Status: Completed Updated: 06/13/22829 Narrative: Patient Name: MOISES MADRID : 1960 [id number] Exam Date/Time: 06/13/2022 07:20 Procedure: US ABDOMEN [...] sonographic Cole's sign reported by the registered radiologic technologist. Pancreas: Obscured by bowel gas. Right [...] 8:29 AM EST XR chest 1 view [[id number]] Collected: 06/12/22 1254 Order Status: Completed Updated: 06/12/22 1257 Narrative: Patient Name: MOISES MADRID : 1960 [id number] Exam Date/Time: 06/12/2022 12:43 Procedure: XR CHEST [...] PM EST XR foot 3+ views right [[id number]] Collected: 06/12/22 1250 Order Status: Completed Updated: [...] EST CT guided abscess fluid collection drainage [[id number]] Collected: 06/10/22 1607 Order Status: Completed Updated: 06/10/22 161 Narrative: Patient Name: MOISES MADRID : 1960 Exam Date/Time: 06/10/2022 14:50 Procedure: CT GUIDED ABSCESS FLUID COLLECTION DRAINAGE Ordering Provider: EDGAR JONATHAN Reason For Exam: PROCEDURE: Drainage catheter placement Procedural Personnel Attending physician(s): Jus Barlow Indication: Peripancreatic fluid collection Additional clinical history: None Complications: No immediate complications. Impression: Percutaneous placement of a 10 [place] drainage catheter into peripancreatic fluid collection, yielding [...] fluid collection - Drainage catheter placed: 10 [place] APD - External catheter securement: Non-absorbable suture [...] EST CT abdomen pelvis wo IV contrast [[id number]] Collected: 06/10/22914 Order Status: Completed Updated: 06/10/22930 [...] 9:30 AM EST XR chest 1 view [[id number]] Collected: 06/10/2244 Order Status: Completed Updated: 06/10/22850 [...] 8:50 AM EST XR chest 1 view [[id number]] Collected: 06/07/222325 Order Status: Completed Updated: 06/07/222327 [...] disorder Medical Decision Making -Patient presents to [facility] ED from SNF on 06/08 with complaints [...] MD Division of Hospitalist Medicine Inpatient Medical Services/[facility] PAGER: [email or web address] chat Pharmacy Note Vancomycin Consult Non-DIRECTOR [employer] Moises Madrid is a 61 y.o. year [...] continue to follow. Speech-Language Pathology Facility/Department: [facility] DYSPHAGIA TREATMENT NAME: Moises Madrid : 1960 [...] study Therapeutic Interventions: Therapeutic PO trials with JACQUARD LOOM CARPET WEAVER, Patient/Family education Treatment/Goals Encounter Problems Encounter Problems [...] study for further assessment. Treatment Plan Requires JACQUARD LOOM CARPET WEAVER Intervention: Yes Frequency/Duration: Frequency of Treatment: 3 days/wk for Duration of Treatment: 2 weeks Therapy Time JACQUARD LOOM CARPET WEAVER Individual Minutes Time In: 1515 Time Out: 1530 Minutes: 15 ALISHA Ayala student 06/16/2022 3:41 PM Cardiology Progress Note Patient Name: Moises Madrid Patient Age: 61 y.o. Date: 06/16/2022 SUBJECTIVE: pt. In isolation Sob.c/o abd. Pain. No cp. PANCREATITIS. CHOLECYSTITIS. RENAL STONE, Stress . >> nl.. ef=65 % Leucocytosis.>>20. Blood vmfbs=079 mg. Gi consult reviewed. Very lethargic & [...] : GIB No Renal : CKD No BRAKE REPAIRER : CVA/TIA No Musculoskeletal system : DJD [...] QT Interval 352 QTC Interval 479 P Harbert 43 QRS Harbert -36 T Wave Harbert 60 NE Interval 160 Impression SINUS TACHYCARDIA LEFT AXIS [...] and febrile SHELTON HERMAN M.D., [facility] 06/16/2022 [facility] - Surgery [facility] Physicians Surgery Patient Name: oMises Madrid Date: 06/16/2022 Patient seen and examined [...] chart review was performed. Remigio Napier MD [facility] General Surgery 7:43 PM 06/16/2022 GENERAL SURGERY [...] proceed with plan. Raimundo Riley APRN - FUNERAL DIRECTOR .. [facility] Progress Note Subjective/ 61 y.o. [...] follow closely with you Zeynep Wyatt APRN, FUNERAL DIRECTOR [facility], [employer] [phone] Patient seen and examined. Agree with above A and p. Hyponatremia starting to improve. Encourage magic cup/protein drinks. C/w FR. Will follow. Images from the original note were not included. Hospitalist Progress Note 06/16/[id number]: Please page me ([phone]) for patient care issues. [phone]: Please page [facility] Hospitalist for any issues. Subjective: Admit Date: 06/07/2022 PCP: Demetrius Fenton Room#: 232-06/232-06 A Interval History: Overnight, patient febrile. On evaluation this am, patient more lethargic and AO x 0. Not following commands. Vitals are more tachycardic and tachyphenic. Worse compared to yesterday. Adult diet Dysphagia - Pureed; Moderately Thick ([place]); Low Fat (less than or equal to 50 gm/day) @[id number]@ 24HR INTAKE/OUTPUT: Intake/Output Summary (Last 24 hours) at 06/16/2022 0747 Last data filed at 06/16/2022 0635 Gross per 24 hour Intake 613 ml Output 4000 ml Net -3387 ml Past Medical History: Past Medical History: Diagnosis Date Anxiety Ataxia Bipolar disorder ([facility]) Chronic pain Constipation Contracture, right hand Depression Dysphagia Dysphagia Dysphonia Edema GERD (gastroesophageal reflux disease) Headache Hemiplegia (CMS/HCC) ([facility]) Hyperlipidemia Hypertension Insomnia Muscle weakness [...] (last 21 days) XR chest 1 view [[id number]] Collected: 06/16/22 0428 Order Status: Completed Updated: [...] 4:29 AM EST XR chest 1 view [[id number]] Collected: 06/15/22 1132 Order Status: Completed Updated: [...] Units Date/Time CT abdomen pelvis w contrast [[id number]] Collected: 06/13/222204 Order Status: Completed Updated: 06/13/222220 Narrative: [facility] Name: MOISES MADRID [facility] 1960 [facility] [id number] Exam Date/Time: 06/13/2022 17:39 Procedure: CT ABDOMEN [...] 06/13/2022 10:20 PM EST US abdomen limited [[id number]] Collected: 06/13/22823 Order Status: Completed Updated: 06/13/22829 Narrative: [facility] 1960 [id number] Exam Date/Time: 06/13/2022 07:20 Procedure: US ABDOMEN [...] sonographic Cole's sign reported by the registered radiologic technologist. Pancreas: Obscured by bowel gas. Right [...] 8:29 AM EST XR chest 1 view [[id number]] Collected: 06/12/22 1254 Order Status: Completed Updated: [...] PM EST XR foot 3+ views right [[id number]] Collected: 06/12/22 1250 Order Status: Completed Updated: [...] EST CT guided abscess fluid collection drainage [[id number]] Collected: 06/10/22 160 Order Status: Completed Updated: 06/10/22 1610 Narrative: Patient Name: MOISES MADRID : 1960 Exam Date/Time: 06/10/2022 14:50 Procedure: CT GUIDED ABSCESS FLUID COLLECTION DRAINAGE Ordering Provider: EDGAR JONATHAN Reason For Exam: PROCEDURE: Drainage catheter placement Procedural Personnel Attending physician(s): Jus Barlow Indication: Peripancreatic fluid collection Additional clinical history: None Complications: No immediate complications. Impression: Percutaneous placement of a 10 Tu[place]uan drainage catheter into peripancreatic fluid collection, yielding [...] fluid collection - Drainage catheter placed: 10 Tu[place]uan APD - External catheter securement: Non-absorbable suture [...] EST CT abdomen pelvis wo IV contrast [[id number]] Collected: 06/10/22914 Order Status: Completed Updated: 06/10/22930 Narrative: Patient Name: MOISES MADRID : 1960 [facility]#: [id number] Exam Date/Time: 06/10/2022 08:50 Procedure: CT ABDOMEN [...] 9:30 AM EST XR chest 1 view [[id number]] Collected: 06/10/22843 Order Status: Completed Updated: 06/10/22850 [...] 8:50 AM EST XR chest 1 view [[id number]] Collected: 06/07/222325 Order Status: Completed Updated: 06/07/222327 [...] disorder Medical Decision Making -Patient presents to [facility] ED from SNF on 06/08 with complaints [...] and ICU consulted. Discussed the case with event marketing coordinator Dr. Rachel and resident physician Dr. Donovan [...] MD Division of Hospitalist Medicine Inpatient Medical Services/[facility] PAGER: Epic chat Images from the original note were not included. [facility] - Infectious Diseases Attending Progress Note Subjective: [...] Status 06/11/2022 13306/12/2022 0002 Pneumonia PCR Panel [[id number]] Sputum Final result Component Value Staphylococcus aureus [...] Detected 06/11/2022 1334 06/13/2022 0722 Respiratory culture [[id number]] Sputum Preliminary result Component Value Respiratory culture Rare respiratory vikram present. P Gram Stain Result Rare Epithelial cells per low power field P Moderate Polymorphonuclear leukocytes per low power field P No organisms seen P 06/10/2022 1433 06/13/2022 0924 Aerobic and Anaerobic Culture with Stain [[id number]] Abscess from Abdomen In process Component Value No component results 06/10/2022 1433 06/13/2022 0924 Culture, Aerobic Bacteria with Gram Stain [[id number]] Abscess from Abdomen Final result Component Value Culture No growth at 72 hours Gram Stain Result Rare Polymorphonuclear leukocytes per low power field No organisms seen Corrected result: Previously reported as Few Gram negative cocci (see Result History) on 06/11/2022 at 1209 EST 06/10/2022 1433 06/12/2022 1200 Anaerobic culture [[id number]] Abscess from Abdomen Preliminary result Component Value Culture No growth to date. Incubation continues P 06/10/2022 1243 06/10/2022 2302 Legionella and Streptococcus Urine Antigen [[id number]] Urine, Clean Catch Final result Component Value Legionella pneumophila Ag Not Detected Streptococcus pneumoniae Ag Not Detected 06/10/2022 1000 06/10/2022 1338 SARS-CoV-2 and Respiratory PCR Panel [[id number]] Swab from Nasopharynx Final result Component Value [...] 1401 Blood culture #1 - Suspected Infection [[id number]] Blood, Venous Preliminary result Component Value Blood Culture No growth at 72 hours P 06/10/2022 0958 06/13/2022 1401 Blood culture #2 - Suspected Infection [[id number]] Blood, Venous Preliminary result Component Value Blood Culture No growth at 72 hours P 06/07/2022 2345 06/08/2022 0035 SARS-CoV-2, Flu A/B, and RSV Combo [[id number]] Swab from Nasopharynx Final result Component Value SARS-CoV-2 Not Detected Respiratory Syncytial Virus Not Detected Influenza A Not Detected Influenza B Not Detected Lines: PIV site ok Radiography/Echo/Other: Reviewed CT abdomen pelvis w contrast [[id number]] Collected: 06/13/222204 Order Status: Completed Updated: 06/13/222220 Narrative: [facility]ISES [facility]ADRID [facility] 1960 [id number] Exam Date/Time: 06/13/2022 17:39 Procedure: CT ABDOMEN [...] interval. Report Dictated on Electronically Signed By: Merrcik Lopez Electronically Signed Date/Time: 06/13/2022 10:20 PM EST Procedure Component Value Units Date/Time US abdomen limited [[id number]] Collected: 06/13/22823 Order Status: Completed Updated: 06/13/22829 [...] sonographic Cole's sign reported by the registered radiologic technologist. Pancreas: Obscured by bowel gas. Right [...] 8:29 AM EST XR chest 1 view [[id number]] Collected: 06/12/22 1254 Order Status: Completed Updated: [...] PM EST XR foot 3+ views right [[id number]] Collected: 06/12/22 1250 Order Status: Completed Updated: [...] EST CT guided abscess fluid collection drainage [[id number]] Collected: 06/10/22 160 Order Status: Completed Updated: 06/10/221609 Narrative: Patient Name: MOISES MADRID : 1960 Exam Date/Time: 06/10/2022 14:50 Procedure: CT GUIDED ABSCESS FLUID COLLECTION DRAINAGE Ordering Provider: EDGAR JONATHAN Reason For Exam: PROCEDURE: Drainage catheter placement Procedural Personnel Attending physician(s): Jus Barlow Indication: Peripancreatic fluid collection Additional clinical history: None Complications: No immediate complications. Impression: Percutaneous placement of a 10 Tuvaluan drainage catheter into peripancreatic fluid collection, yielding [...] fluid collection - Drainage catheter placed: 10 Tu[place]uan APD - External catheter securement: Non-absorbable suture [...] EST CT abdomen pelvis wo IV contrast [[id number]] Collected: 06/10/22914 Order Status: Completed Updated: 06/10/22930 Narrative: [facility] Name: MOISES [facility]ADRID [facility] 1960 [id number] Exam Date/Time: 06/10/2022 08:50 Procedure: CT ABDOMEN [...] 9:30 AM EST XR chest 1 view [[id number]] Collected: 06/10/22843 Order Status: Completed Updated: 06/10/22850 Narrative: Patient Name: MOISES MADRID : 1960 [id number] Exam Date/Time: 06/10/2022 08:36 Procedure: XR CHEST [...] 8:50 AM EST XR chest 1 view [[id number]] Collected: 06/07/222325 Order Status: Completed Updated: 06/07/222327 [...] accounting for open encounter. Speech-Language Pathology Facility/Department: [facility] DYSPHAGIA TREATMENT NAME: Moises Madrid : 1960 [...] appropriate with this diet. Treatment Plan Requires JACQUARD LOOM CARPET WEAVER Intervention: Yes Frequency/Duration: Frequency of Treatment: 3 days/wk for Duration of Treatment: 2 weeks Therapy Time JACQUARD LOOM CARPET WEAVER Individual Minutes Time In: 1442 Time Out: 1513 Minutes: 31 ALISHA Canchola 06/15/2022 3:32 PM Physical Therapy Facility/Department: [facility] Physical Therapy Daily Treatment Note NAME: Moises Madrid : 1960 Date of Service: 06/15/2022 Discharge Recommendations: Subacute/Prison Facility PT Equipment Recommendations Equipment Needed: (TBD [...] of right foot with fat layer exposed ([facility]) were also pertinent to this [...] act) Jessica Lott PTA Occupational Therapy Facility/Department: [facility] Occupational Therapy Treatment NAME: Moises Madrid : 1960 Date of Service: 06/15/2022 Discharge Recommendations: Subacute/Prison Facility Assessment Performance deficits / Impairments: Decreased [...] 24 Minutes (FA x2) Deja Saeed OT [facility] - Surgery [facility] Physicians Surgery Patient Name: Moises Madrid Date: [...] chart review was performed. Remigio Napier MD [facility] General Surgery 2:30 PM 06/15/2022 GENERAL SURGERY [...] . >> nl.. ef=65 % Leucocytosis.>>20. Blood uosgh=424 mg. Gi consult reviewed. No cp. VITALS [...] : GIB No Renal : CKD No BRAKE REPAIRER : CVA/TIA No Musculoskeletal system : DJD [...] QT Interval 352 QTC Interval 479 P Harbert 43 QRS Harbert -36 T Wave Harbert 60 NE Interval 160 Impression SINUS TACHYCARDIA LEFT AXIS DEVIATION LATE PRECORDIAL R/S TRANSITION LEFT VENTRICULAR HYPERTROPHY Electronically Signed On 06-10-2022 9:55:05 EST by Dimple Howellkyhan Echo: Transthoracic echocardiogram (TTE) complete with contrast, [...] Troponin=0.012. ekg no change, SHELTON HERMAN M.D., [facility] 06/15/2022 Images from the original note were not included. Hospitalist Progress Note 06/15/2022 [phone]: Please page me ([phone]) for patient care issues. [phone]: Please page [facility] Hospitalist for any issues. Subjective: [...] (less than or equal to 50 gm/day) @[id number]@ 24HR INTAKE/OUTPUT: Intake/Output Summary (Last 24 hours) [...] Units Date/Time CT abdomen pelvis w contrast [[id number]] Collected: 06/13/222204 Order Status: Completed Updated: 06/13/222220 Narrative: Patient Name: MOISES MADRID : 1960 [id number] Exam Date/Time: 06/13/2022 17:39 Procedure: CT ABDOMEN [...] Date/Time: 06/13/2022 10:20 PM EST abdomen limited [[id number]] Collected: 06/13/22823 Order Status: Completed Updated: 06/13/22829 [...] sonographic Cole's sign reported by the registered radiologic technologist. Pancreas: Obscured by bowel gas. Right [...] 8:29 AM EST XR chest 1 view [[id number]] Collected: 06/12/22 1254 Order Status: Completed Updated: 06/12/22 1257 Narrative: Patient Name: MOISES MADRID : 1960 [id number] Exam Date/Time: 06/12/2022 12:43 Procedure: XR CHEST [...] PM EST XR foot 3+ views right [[id number]] Collected: 06/12/22 1250 Order Status: Completed Updated: [...] EST CT guided abscess fluid collection drainage [[id number]] Collected: 06/10/22 1607 Order Status: Completed Updated: 06/10/22 1610 Narrative: Patient Name: MOISES MADRID : 1960 Exam Date/Time: 06/10/2022 14:50 Procedure: CT GUIDED ABSCESS FLUID COLLECTION DRAINAGE Ordering Provider: EDGAR JONATHAN Reason For Exam: PROCEDURE: Drainage catheter placement Procedural Personnel Attending physician(s): Jus Barlow Indication: Peripancreatic fluid collection Additional clinical history: None Complications: No immediate complications. Impression: Percutaneous placement of a 10 Tu[place]uan drainage catheter into peripancreatic fluid collection, yielding [...] fluid collection - Drainage catheter placed: 10 Tu[place]uan APD - External catheter securement: Non-absorbable suture [...] EST CT abdomen pelvis wo IV contrast [[id number]] Collected: 06/10/22914 Order Status: Completed Updated: 06/10/22930 Narrative: Patient Name: MOISES MADRID : 1960 [id number] Exam Date/Time: 06/10/2022 08:50 Procedure: CT ABDOMEN [...] 9:30 AM EST XR chest 1 view [[id number]] Collected: 06/10/22843 Order Status: Completed Updated: 06/10/22850 [...] 8:50 AM EST XR chest 1 view [[id number]] Collected: 06/07/222325 Order Status: Completed Updated: 06/07/222327 [...] disorder Medical Decision Making -Patient presents to [facility] ED from SNF on 06/08 with complaints [...] MD Division of Hospitalist Medicine Inpatient Medical Services/[facility] PAGER: Epic chat Speech-Language Pathology Facility/Department: [place] [address] DYSPHAGIA TREATMENT NAME: Moises Madrid : 1960 [...] P: continue dysphagia POC. Treatment Plan Requires JACQUARD LOOM CARPET WEAVER Intervention: Yes Frequency/Duration: Frequency of Treatment: 3 days/wk for Duration of Treatment: 2 weeks Therapy Time JACQUARD [employer]PET WEAVER Individual Minutes Time In: 1435 Time Out: 1457 Minutes: 22 ALISHA Canchola 06/14/2022 3:41 PM Images from the original note were not included. [facility] - Infectious Diseases Attending Progress Note Subjective: [...] 06/11/2022 1334 06/12/2022 0002 Pneumonia PCR Panel [[id number]] Sputum Final result Component Value Staphylococcus aureus [...] Detected 06/11/2022 1334 06/13/2022 0722 Respiratory culture [[id number]] Sputum Preliminary result Component Value Respiratory culture Rare respiratory vikram present. P Gram Stain Result Rare Epithelial cells per low power field P Moderate Polymorphonuclear leukocytes per low power field P No organisms seen P 06/10/2022 1433 06/13/2022 0924 Aerobic and Anaerobic Culture with Stain [[id number]] Abscess from Abdomen In process Component Value No component results 06/10/2022 1433 06/13/2022 0924 Culture, Aerobic Bacteria with Gram Stain [[id number]] Abscess from Abdomen Final result Component Value Culture No growth at 72 hours Gram Stain Result Rare Polymorphonuclear leukocytes per low power field No organisms seen Corrected result: Previously reported as Few Gram negative cocci (see Result History) on 06/11/2022 at 1209 EST 06/10/2022 1433 06/12/2022 1200 Anaerobic culture [[id number]] Abscess from Abdomen Preliminary result Component Value Culture No growth to date. Incubation continues P 06/10/2022 1243 06/10/2022 2302 Legionella and Streptococcus Urine Antigen [[id number]] Urine, Clean Catch Final result Component Value Legionella pneumophila Ag Not Detected Streptococcus pneumoniae Ag Not Detected 06/10/2022 1000 06/10/2022 1338 SARS-CoV-2 and Respiratory PCR Panel [[id number]] Swab from Nasopharynx Final result Component Value [...] 1401 Blood culture #1 - Suspected Infection [[id number]] Blood, Venous Preliminary result Component Value Blood Culture No growth at 72 hours P 06/10/2022 0958 06/13/2022 1401 Blood culture #2 - Suspected Infection [[id number]] Blood, Venous Preliminary result Component Value Blood Culture No growth at 72 hours P 06/07/2022 2345 06/08/2022 0035 SARS-CoV-2, Flu A/B, and RSV Combo [[id number]] Swab from Nasopharynx Final result Component Value SARS-CoV-2 Not Detected Respiratory Syncytial Virus Not Detected Influenza A Not Detected Influenza B Not Detected Lines: PIV site ok Radiography/Echo/Other: Reviewed CT abdomen pelvis w contrast [[id number]] Collected: 06/13/222204 Order Status: Completed Updated: 06/13/222220 Narrative: Patient Name: MOISES MADRID : 1960 [facility]#: [id number] Exam Date/Time: 06/13/2022 17:39 Procedure: CT ABDOMEN [...] Component Value Units Date/Time US abdomen limited [[id number]] Collected: 06/13/22823 Order Status: Completed Updated: 06/13/22829 [...] sonographic Cole's sign reported by the registered radiologic technologist. Pancreas: Obscured by bowel gas. Right [...] 8:29 AM EST XR chest 1 view [[id number]] Collected: 06/12/22 1254 Order Status: Completed Updated: [...] PM EST XR foot 3+ views right [[id number]] Collected: 06/12/22 125 Order Status: Completed Updated: [...] EST CT guided abscess fluid collection drainage [[id number]] Collected: 06/10/22 1607 Order Status: Completed Updated: 06/10/221609 Narrative: Patient Name: MOISES MADRID : 1960 Exam Date/Time: 06/10/2022 14:50 Procedure: CT GUIDED ABSCESS FLUID COLLECTION DRAINAGE Ordering Provider: EDGAR JONATHAN Reason For Exam: PROCEDURE: Drainage catheter placement Procedural Personnel Attending physician(s): Jus Barlow Indication: Peripancreatic fluid collection Additional clinical history: None Complications: No immediate complications. Impression: Percutaneous placement of a 10 Tuvaluan drainage catheter into peripancreatic fluid collection, yielding [...] fluid collection - Drainage catheter placed: 10 Tu[place]uan APD - External catheter securement: Non-absorbable suture [...] EST CT abdomen pelvis wo IV contrast [[id number]] Collected: 06/10/22914 Order Status: Completed Updated: 06/10/22930 [...] 9:30 AM EST XR chest 1 view [[id number]] Collected: 06/10/22843 Order Status: Completed Updated: 06/10/22850 [...] 8:50 AM EST XR chest 1 view [[id number]] Collected: 06/07/222325 Order Status: Completed Updated: 06/07/222327 Narrative: [facility] Name: [facility]ISES [facility]ADRID [facility] 1960 [id number] Exam Date/Time: 06/07/2022 23:25 Procedure: XR CHEST [...] from the original note were not included. [facility] Wound Care Progress Note Moises Madrid [...] mouth Nightly. cholecalciferol (Vitamin D3) 1.25 MG (90846 UT) tablet Take by mouth 1 (one) [...] Do not crush, chew, or split. HYDROcodone-acetaminophen ([place]) 5-325 MG tablet Take 1 tablet by [...] Apply topically if needed for dry skin. [place]-3 Fatty Acids (Fish Oil) 1000 MG capsule [...] toes - cleanse with antibacterial soap/water, leave MANAGER RESPIRATORY PVR ordered-completed - see 06/11/22 Vascular study results Venous insufficiency Elevate legs as much as possible Right posterior thigh Moisture associated skin damage from friction and other body fluids. - ET mix , xeroform and ABD pad. BID . Left post thigh and perineum - ET mix BID . Intertrigo, abdominal fold - miconazole powder BID Please follow up at [facility] after hospital discharge. Thank you for the [...] my own independent evaluation of this patient. [facility] Medical [facility] - Surgery [facility] Physicians Surgery Patient Name: Moises Madrid Date: [...] chart review was performed. Remigio Napier MD [facility] General Surgery 2:38 PM 06/14/2022 GENERAL SURGERY [...] note were not included. Hospitalist Progress Note 06/14/[id number]: Please page me ([phone]) for patient care issues. [phone]: Please page [facility] Hospitalist for any issues. Subjective: [...] (less than or equal to 50 gm/day) @[id number]@ 24HR INTAKE/OUTPUT: Intake/Output Summary (Last 24 hours) [...] Units Date/Time CT abdomen pelvis w contrast [[id number]] Collected: 06/13/222204 Order Status: Completed Updated: 06/13/222220 Narrative: Patient Name: MOISES MADRID : 1960 [facility]#: [id number] Exam Date/Time: 06/13/2022 17:39 Procedure: CT ABDOMEN [...] 06/13/2022 10:20 PM EST US abdomen limited [[id number]] Collected: 06/13/22823 Order Status: Completed Updated: 06/13/22829 Narrative: Patient Name: MOISES MADRID : 1960 [id number] Exam Date/Time: 06/13/2022 07:20 Procedure: US ABDOMEN [...] sonographic Cole's sign reported by the registered radiologic technologist. Pancreas: Obscured by bowel gas. Right [...] 8:29 AM EST XR chest 1 view [[id number]] Collected: 06/12/22 1254 Order Status: Completed Updated: [...] PM EST XR foot 3+ views right [[id number]] Collected: 06/12/22 1250 Order Status: Completed Updated: [...] EST CT guided abscess fluid collection drainage [[id number]] Collected: 06/10/22 160 Order Status: Completed Updated: 06/10/22 161 Narrative: Patient Name: MOISES MADRID : 1960 Exam Date/Time: 06/10/2022 14:50 Procedure: CT GUIDED ABSCESS FLUID COLLECTION DRAINAGE Ordering Provider: EDGAR JONATHAN Reason For Exam: PROCEDURE: Drainage catheter placement Procedural Personnel Attending physician(s): Jus Barlow Indication: Peripancreatic fluid collection Additional clinical history: None Complications: No immediate complications. Impression: Percutaneous placement of a 10 Tu[place]uan drainage catheter into peripancreatic fluid collection, yielding [...] fluid collection - Drainage catheter placed: 10 Tu[place]uan APD - External catheter securement: Non-absorbable suture [...] EST CT abdomen pelvis wo IV contrast [[id number]] Collected: 06/10/22914 Order Status: Completed Updated: 06/10/22930 Narrative: Patient Name: MOISES MADRID : 1960 [id number] Exam Date/Time: 06/10/2022 08:50 Procedure: CT ABDOMEN [...] Somewhat limited evaluation of the GI tract [facility] 06-23-2022 Miscellaneous Notes S/W, follow up Patient discharged back to [facility] Orders sent via Careport to facility. Transport set via [facility] at clinical trials nurse provided report number. Patient aware of transport today. Chart reviewed. Patient remains in HICU for treatment of SIRS and acute pancreatitis with abscess s/p percutaneous drain. ID signed off. Drained removed 06/21. Surgery signed off. JACQUARD LOOM CARPET WEAVER following for dysphagia. 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 SW following. Anticipate discharge today. Images from the original note were not included. Care Management Progress Note - Discharge Expected Date/Time: 06/21/[address] discharge order Complete med reconciliation Request transport Case mgmt discharge readiness JACQUARD [employer]OM CARPET WEAVER discharge readiness Expected Discharge History Expected Date/Time [...] but is improving. Discharge plan return to [facility] when medically stable. Images from the original [...] remain stagnant-Strict I&O. Pt can return to [facility] at discharge. He does not need insurance auth. He will need COVID screen & completed & signed EARNEST. S/W, follow up Updates sent to [facility]. Patient able to return anytime. S/W to follow for DC. Images from the original note were not included. Care Management Progress Note - Discharge Expected Date/Time: 06/21/[address] discharge order Complete med reconciliation Request transport Case mgmt discharge readiness JACQUARD LOOM [employer]PET WEAVER discharge readiness Expected Discharge History Expected Date/Time [...] prior to discharge. T can return to [facility] at discharge. He does not need insurance auth. He will need COVID screen & completed & signed EARNEST. S/W, follow up Updates sent via Careport to [facility]. I did call [facility], they can accept the patient over the weekend if ready for DC, he is [place] [facility] but can skill him under his [...] service for now. Discussed with nursing supervisor intelligence analyst, bedside nurse and ICU team. Asia Nelson MD Division of Hospitalist Medicine [facility] 10:24 AM 06/16/22 S/W, follow up Updates sent via Careport to [facility]. Facility may be able to re-skill the patient. S/W to follow for DC. Length of Stay: 7 Anticipated date of discharge: 06/16/2022 Medical Plan of Care: ID-Follow inflammatory markers after 48h on 06/16. Substitute ertapenem for pip/tazo for 5 days. Check valproic acid level.General surgery & GI following. Continue drain mgmt- may be able to remove in coming day. DC Disposition: [facility] [facility] Discharge Barriers: Medical stability. Surgery is recommending to continue drain . Per CT of abdomen 06/13 near complete resolution of focal fluid noted. GI has signed off. Remains on IV antibiotics. Sodium down 127. WBC 18.7 today. Discharge plan remains to return to [facility] when medically stable. 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 Patient today with increased abdominal pain, possible drain for peripancreatic fluid, likely infected. S/W to follow. S/W, follow up [facility] indicated patient is a [place] [facility] bed hold at the facility. I am clarifying if they need insurance approval or not. Patient with Stress Test today. S/W to follow. Discharge plan is return to [facility] when medically stable. Cardiology consult pending. Vascular us of lower extremities pending. Echo completed but no report in computer at this time. culinary worker following for return to facility. S/W, follow up Patient in from [facility]. Referral placed in Careport inquiring on needs [...] include Q2 turns. documented in this encounter [facility] 06-23-2022 Hospital course Narrative Discharge Summary [...] of chest pain. Patient resides in a detention . Patient presents to the Ed due [...] and management during his stay here at [facility]: # SIRS # Acute pancreatitis with peripancreatic [...] and now on RA. # Dysphagia - JACQUARD LOOM CARPET WEAVER following. Recommended Minced and Moist (Dysphagia II), Liquid Consistency Mildly Thick ([place]) # Coronavirus positive - per ID, No [...] 81 MG EC tablet cholecalciferol 1.25 MG (55756 UT) tablet Commonly known as: Vitamin D3 [...] HYDROcodone-acetaminophen 5-325 MG tablet Commonly known as: [place] ketoconazole 2 % cream Commonly known as: [...] Dysphagia - Minced and Moist; Mildly Thick ([place]) ACTIVITY: Up with assist COMPLEXITY OF FOLLOW UP: [] Moderate Complexity: follow up within 7-14 calendar days (73705) [] Severe Complexity: follow up within 7 calendar days (06799) FOLLOW UP TESTING, PENDING RESULTS OR REFERRALS [...] 06/23/2022, 2:03 PM documented in this encounter [facility] 06-17-2022 Procedure note Images from the original note were not included. SPEECH LANGUAGE PATHOLOGY MODIFIED BARIUM SWALLOW STUDY Patient Name: Moises Madrid : 1960 Today's Date: 06/17/2022 Visit Info / [facility] DATE: 06/07/2022 ADMITTING DIAGNOSIS: has [...] Bite-Sized (Dysphagia III), Dysphagia Pureed (Dysphagia I), [place] cup, [place] teaspoon, Honey cup, Honey teaspoon, Thin cup, [...] appropriate. Plan & Recommendations Recommendations/Treatment: Recommendations/Treat Requires JACQUARD LOOM CARPET WEAVER Intervention: Yes Recommendations: Judd Water Protocol Recommendations comment: Free water with small amount of ice chips. MAKE SURE FOR SWALLOW AFTER EVERY BITE D/C Recommendations: Ongoing speech therapy is recommended during this hospitalization Solid consistency: Dysphagia Pureed (Dysphagia I) Liquid consistency: Mildly Thick ([place]) Liquid administration via: Cup Medication administration: Meds in puree Supervision: Close Compensatory Swallowing Strategies : Assist feed, Small bites/sips, Upright as possible for all oral intake, Remain upright for 30-45 minutes after meals, Alternate solids and liquids (WATCH CLOSE for swallows) Postural Changes and/or Swallow Maneuvers: Upright 90 degrees, Upright 30 min after meal Therapeutic Interventions: Therapeutic PO trials with JACQUARD LOOM CARPET WEAVER, Patient/Family education, Diet tolerance monitoring, Judd Water [...] Start: 06/11/22 Expected End: 06/25/22 Therapy Time JACQUARD LOOM CARPET WEAVER Individual Minutes Time In: 1442 Time Out: 1513 Minutes: 31 ALISHA Canchola documented in this encounter [facility] 06-17-2022 Consult note Formatting of th [...] Historical ProviderMD cholecalciferol (Vitamin D3) 1.25 MG (08996 UT) tablet Take by mouth 1 (one) [...] crush, chew, or split. Historical ProviderMD HYDROcodone-acetaminophen ([place]) 5-325 MG tablet Take 1 tablet by [...] if needed for dry skin. Historical ProviderMD [place]-3 Fatty Acids (Fish Oil) 1000 MG capsule [...] Normal [] Scar/Lesion/Mass Inspection of teeth/lips/gums Dentition: [][place] Teeth []Dentures Lips/Gums: []Intact []Lesion Present Mucosa: [][place]urst []Moist []Dry Neck: External Appearance Overall Appearance: [...] ABGs: Recent Labs 06/16/22 0941 PHART 7.452* GXI9WMS 42.3 PO2ART 67.7* KBM5BVS 29.5* SO2ART 94.0* Lactic Acid: No results [...] and management if needed. Jhon Bethea MD advertising vice president, PGY-III Pager: [phone] 06/16/2022 at 10:44 AM Associated attestation - [...] Narrative Patient Name: MOISES MADRID : 1960 [facility]#: [id number] Exam Date/Time: 06/16/2022 05:16 Procedure: XR CHEST [...] complaint listed above. Patient resides in a detention. Patient presents to the Ed due to [...] mouth Nightly. cholecalciferol (Vitamin D3) 1.25 MG (08202 UT) tablet Take by mouth 1 (one) [...] Do not crush, chew, or split. HYDROcodone-acetaminophen ([place]) 5-325 MG tablet Take 1 tablet by [...] Apply topically if needed for dry skin. [place]-3 Fatty Acids (Fish Oil) 1000 MG capsule [...] any questions or concerns. Brenda Blanco APRN, FUNERAL DIRECTOR [facility], [facility] [phone] office Seen and examined. Agree with above [...] Practitioner Consult Note Available for page via [employer] Monday, Monday, Monday [phone] Outside of these hours, please contact Dr. [...] I came here". Reports living at the [facility] in [place] and states he likes it there. Has [...] bipolar 1, insomnia, anxiety, TBI. Records from [place] note diagnosis of bipolar disorder, severe, current episode depressed with psychotic features and mixed expressive-receptive language disorder Psychiatrist: through [facility] @ [place] Counselor: denies Corporate Safety Director: "I don't know" Hospitalizations: multiple in past, [...] mouth Nightly. cholecalciferol (Vitamin D3) 1.25 MG (69653 UT) tablet Take by mouth 1 (one) [...] Do not crush, chew, or split. HYDROcodone-acetaminophen ([place]) 5-325 MG tablet Take 1 tablet by [...] Apply topically if needed for dry skin. [place]-3 Fatty Acids (Fish Oil) 1000 MG capsule [...] Social History: Patient reports growing up in House with both parents and two brothers. He denies abuse/violence in the home as a child. Denies abuse/violence as an adult. Patient completed trade school and worked with "[employer]" as an adult. He has never been , has no children. Reports he has 1 brother that occasionally checks in with him but the other is estranged, voices no other support. Currently living in [facility], has been there for several years and likes it there. Denies service, denies legal history. Denies affiliation with hindu but does endorse a belief in God. [...] Tangential [] Loose associations [] Circumstantial [] [place] [] Perseverative [] Poverty of Thought [] [...] hypertension of right lower extremity with ulcer ([facility]) ASSESSMENT Major Depression vs Bipolar [...] in hospital. Will hold off on constant manager developmental at this time. Should patient verbalize a plan or worsening SI, recommend adding suicide precautions and constant manager developmental. Patient's passive suicidal thoughts appear directly related [...] from the original note were not included. [facility] - Infectious Diseases Attending Consult Note Reason for Consult: Pancreatic fluid collection/abscess History of Present Illness: Patient is 61 year old admitted to [facility] with shortness of breath and chest discomfort [...] 2 % powder Topical BID Bertha Rodrigez, ASSET COORDINATOR - FUNERAL DIRECTOR Given at 06/11/22 2157 nitroglycerin (Nitrostat) SL [...] (ET Mix) Topical PRN Berthamaria elena Rodrigez ASSET COORDINATOR - FUNERAL DIRECTOR Given at 06/11/22 1546 Allergies: Allergies Allergen [...] of chest pain. Patient lives in a detention secondary to traumatic brain injury and history [...] Historical Provider, cholecalciferol (Vitamin D3) 1.25 MG (64570 UT) tablet Take by mouth 1 (one) [...] crush, chew, or split. Historical ProviderMD HYDROcodone-acetaminophen ([place]) 5-325 MG tablet Take 1 tablet by [...] if needed for dry skin. Historical Provider, [place]-3 Fatty Acids (Fish Oil) 1000 MG capsule [...] Narrative: [facility] 1960 [id number] Exam Date/Time: 06/10/2022 14:50 Procedure: CT GUIDED ABSCESS FLUID COLLECTION DRAINAGE Ordering Provider: EDGAR JONATHAN Reason For Exam: PROCEDURE: Drainage catheter placement Procedural Personnel Attending physician(s): Jus Barlow Indication: Peripancreatic fluid collection Additional clinical history: None Complications: No immediate complications. Impression: Percutaneous placement of a 10 Tu[place] drainage catheter into peripancreatic fluid collection, yielding [...] fluid collection - Drainage catheter placed: 10 [place] APD - External catheter securement: Non-absorbable suture [...] Narrative: [facility]ID [facility] 1960 [id number] Exam Date/Time: 06/10/2022 08:36 Procedure: XR CHEST [...] Associated Order(s): IP CONSULT TO GENERAL SURGERY [facility] - Surgery [facility] Physicians Surgery Patient Name: Moises Madrid Date: [...] chart review was performed. Remigio Napier MD [facility] General Surgery 10:00 PM 06/10/2022 Department of [...] HTN, HLD, bipolar, and was currently at [facility]. He initially presented with substernal [...] Historical ProviderMD cholecalciferol (Vitamin D3) 1.25 MG (25345 UT) tablet Take by mouth 1 (one) [...] crush, chew, or split. Historical ProviderMD HYDROcodone-acetaminophen ([place]) 5-325 MG tablet Take 1 tablet by [...] if needed for dry skin. Historical ProviderMD [place]-3 Fatty Acids (Fish Oil) 1000 MG capsule [...] from the original note were not included. [facility] Wound Care CONSULT Note Moises Madrid [...] History: Diagnosis Date Anxiety Ataxia Bipolar disorder ([facility]) Chronic pain Constipation Contracture, right [...] mouth Nightly. cholecalciferol (Vitamin D3) 1.25 MG (20742 UT) tablet Take by mouth 1 (one) [...] Do not crush, chew, or split. HYDROcodone-acetaminophen ([place]) 5-325 MG tablet Take 1 tablet by [...] Apply topically if needed for dry skin. [place]-3 Fatty Acids (Fish Oil) 1000 MG capsule [...] miconazole powder BID Please follow up at [facility] [place] after hospital discharge. Thank you for the consult! I personally obtained the casrto and critical portions of the history and [...] is a 61 yo male admitted to [facility] after presenting to ED with Chest pain. CP is described in ED as constant, non-radiating, 7/10 centrally located pain. Troponin x3 <0.012. Past Medical History: has a past medical history of Anxiety, Ataxia, Bipolar disorder (HCC), Chronic pain, Constipation, Contracture, right hand, Depression, Dysphagia, Dysphagia, Dysphonia, Edema, GERD (gastroesophageal reflux disease), Headache, Hemiplegia (CMS/HCC) ([facility]), Hyperlipidemia, Hypertension, Insomnia, Muscle weakness, [...] Historical ProviderMD cholecalciferol (Vitamin D3) 1.25 MG (28053 UT) tablet Take by mouth 1 (one) [...] crush, chew, or split. Historical Provider, HYDROcodone-acetaminophen ([place]) 5-325 MG tablet Take 1 tablet by [...] if needed for dry skin. Historical Provider, [place]-3 Fatty Acids (Fish Oil) 1000 MG capsule [...] ABGs: No results found for: PHART, PO2ART, SMC5VDR INR: No results for input(s): INR in [...] PATIENT NAME: Moises Madrid DATE: 06/08/2022 PAGER: [phone] documented in this encounter [facility] 06-16-2022 Nurse Note Patient found to [...] assisted to CT table and place supine. patient monitor on. 10 Fr drain inserted. Bandaid applied to site. Patient tolerated procedure well. Report called and patient transferred to HICU 6, report called back to RN. At 0802 Johnny Costa notified of increased abd pain, abd distended, tender to palpation all quads. Hypoactive BS. No Tye9auld. Also increased need of 02, on RA pt 89% on 4l 94%. Labs, cxr and CT of ABD/pelvis. Attempted buckley x 2 16fr unsuccessful followed by 14fr coude, unsuccessful documented in this encounter [facility] 06-08-2022 Hospital Discharge instructions Becky Upton [...] Unit/Room#: 232-06/232-06 A Discharging Unit Phone Number: [phone] Emergency Contact: Extended Emergency Contact Information Primary [...] assistance Toileting Total assistance Feeding Minimal assistance Jig Grinder Minimal assistance Med Delivery yes Wound Care Documentation and Therapy: Wound/Incision 06/08/22 Pressure Injury Toe (Comment which one) Anterior;Right (Active) Wound Image 06/08/22 0359 Site Assessment Painful;Hurst;Sloughing 06/08/22425 Drainage Amount Scant 06/08/22 0426 Treatments [...] Details Model IP RISK OF UNPLANNED READMISSION [[id number]] is not released. No score information can be retrieved Discharging to Facility/ Agency Name: [facility] Address: [address] [facility] Fax: Dialysis Facility (if applicable) Name: Address: Dialysis Schedule: Phone: Fax: Nursing Support Worker/Organ Pipe Voicer signature: ICIAN SECTION Prognosis: poor Condition at [...] H&P PHYSICIAN SIGNATURE: documented in this encounter [facility] 06-08-2022 History and physical note Images [...] complaint listed above. Patient resides in a detention . Patient presents to the Ed due [...] Muscle weakness Neuropathy TBI (traumatic brain injury) (CMS/[facility]) Past Surgical History: Past Surgical [...] [place] Division of Hospitalist Medicine Inpatient Medical Services/[facility] documented in this encounter [facility] 06-07-2022 Emergency department Note Pt states no relief after 1 nitroglycerin. However, due to pt pressure, unable to continue to administer. Dr. Smallwood notified, new orders placed. Karen Patel RN 06/07/22 4972 Emergency Department Encounter [facility] ED Patient: Moises Madrid : 1960 Date [...] afternoon. No relief despite dispensed PPI at detention. Given 481 mg aspirins by EMS with [...] Brief ED course/MDM: 61-year-old male presenting from detention for constant central nonradiating chest pain since [...] [employer] Tresa Smallwood DO 06/07/22 4363 Tresa Smallwood DO 06/08/22 0049 EMERGENCY DEPARTMENT ENCOUNTER Pt Name: Mosies Madrid Birthdate 1960 Date of evaluation: 06/07/2022 [...] In compliance with this authorization, please visit www.fda.gov/media/337800/download or www.fda.gov/media/126754/download to access the applicable information sheets. TROPONIN [...] 2. Hyperkalemia 3. EDWARDO (acute kidney injury) ([facility]) ([facility]) DISPOSITION Observation 06/08/2022 01:18:58 AM [...] PA-C 06/08/22 0127 documented in this encounter [facility] Evaluation note Diagnosis Cellulitis of right lower extremity- Primary Cellulitis and abscess of leg, except foot Elevated lactic acid level Other nonspecific abnormal serum enzyme levels [facility] Work Phone: Evaluation noteNo assessment information available [facility] Work Phone: Evaluation note* Diagnosis [...] postoperative care- Primary [facility] Diagnosis Passive suicidal ideations- Primary [facility] Diagnosis Chronic daily headache- Primary Headache Intractable chronic migraine without aura and with status migrainosus Chronic migraine without aura, with intractable migraine, so stated, with status migrainosus Traumatic brain injury with loss of consciousness, sequela (HCC) Insomnia, unspecified type [facility] Diagnosis Cellulitis of right lower extremity- Primary Right lower quadrant abdominal pain Constipation, unspecified constipation type [facility] Diagnosis Lymphedema- Primary Other noninfectious lymphedema Venous insufficiency (chronic) (peripheral) Unspecified venous (peripheral) insufficiency Non-pressure chronic ulcer right lower leg, limited to breakdown skin (HCC) Non-pressure chronic ulcer of other part of right foot with fat layer exposed (HCC) Decreased mobility [facility] Diagnosis Venous insufficiency (chronic) (peripheral)- Primary Unspecified venous (peripheral) insufficiency Lymphedema Other noninfectious lymphedema Non-pressure chronic ulcer right lower leg, limited to breakdown skin (HCC) Non-pressure chronic ulcer of other part of right foot with fat layer exposed (HCC) Decreased mobility [facility] Diagnosis Venous insufficiency (chronic) (peripheral)- Primary Unspecified venous (peripheral) insufficiency Lymphedema Other noninfectious lymphedema Non-pressure chronic ulcer right lower leg, limited to breakdown skin (HCC) Non-pressure chronic ulcer of other part of right foot with fat layer exposed (HCC) Decreased mobility [facility]* Diagnosis Non-pressure chronic ulcer of other part of right foot with fat layer exposed (HCC) Lymphedema Other noninfectious lymphedema Venous insufficiency (chronic) (peripheral) Unspecified venous (peripheral) insufficiency Non-pressure chronic ulcer right lower leg, limited to breakdown skin (HCC) [facility] Diagnosis Non-pressure chronic ulcer of other part of right foot with fat layer exposed (HCC) Venous insufficiency (chronic) (peripheral) Unspecified venous (peripheral) insufficiency Lymphedema Other noninfectious lymphedema [facility] Diagnosis Non-pressure chronic ulcer of [...] insufficiency Decreased mobility [facility] Diagnosis Non-pressure chronic ulcer [...] with ulcer of right lower extremity (CODE) ([facility]) [I87.311]- Primary Non-pressure chronic ulcer of other part of right lower leg with fat layer exposed ([facility]) [L97.812] Chronic venous hypertension (idiopathic) with ulcer of left lower extremity (CODE) ([facility]) [I87.312] Non-pressure chronic ulcer of other part of left lower leg with fat layer exposed ([facility]) [L97.822] Peripheral venous insufficiency [I87.2] Unspecified venous (peripheral) insufficiency [facility] Diagnosis Chest pain- Primary Unspecified chest pain Chest pain, unspecified type Hyperkalemia Hyperpotassemia EDWARDO (acute kidney injury) (CMS/HCC) ([facility]) Chest pain on breathing Painful respiration Stable angina pectoris (CMS/HCC) ([facility]) Idiopathic chronic venous hypertension of right lower extremity with ulcer (HCC) Peripheral vascular disease, unspecified (HCC) Peripheral vascular disease, unspecified Venous insufficiency (chronic) (peripheral) Unspecified venous (peripheral) insufficiency Non-pressure chronic ulcer of other part of right foot with fat layer exposed ([facility]) Depression Depressive disorder, not elsewhere classified Essential hypertension, benign Hemiplegia ([facility]) (HCC) Unspecified hemiplegia affecting unspecified side Obesity, Class I, BMI 30-34.9 Hyperlipidemia Other and unspecified hyperlipidemia Idiopathic chronic venous hypertension of right lower extremity with ulcer ([facility]) [facility] Diagnosis Non-pressure chronic ulcer of other part of right foot with fat layer exposed ([facility])- Primary Peripheral venous insufficiency [I87.2] Unspecified venous (peripheral) insufficiency [facility] Diagnosis Non-pressure chronic ulcer of other part of right foot with fat layer exposed ([facility])- Primary Peripheral venous insufficiency [I87.2] Unspecified venous (peripheral) insufficiency [facility] Diagnosis Non-pressure chronic ulcer of other part of right foot with fat layer exposed (HCC)- Primary Peripheral venous insufficiency [I87.2] Unspecified venous (peripheral) insufficiency Chronic venous hypertension (idiopathic) with ulcer of left lower extremity (CODE) ([facility]) [I87.312] Chronic venous hypertension (idiopathic) with ulcer of right lower extremity (CODE) ([facility]) [I87.311] Non-pressure chronic ulcer of other part of right lower leg with fat layer exposed ([facility]) [L97.812] Non-pressure chronic ulcer of other part of left lower leg with fat layer exposed ([facility]) [L97.822] Non-pressure chronic ulcer left lower leg, limited to breakdown skin ([facility]) Venous insufficiency (chronic) (peripheral) Unspecified venous [...] of consciousness, sequela [facility]ative)No reason for referral information availableWProMedica [facility] Work Phone: Summary Purpose Family History No Family History Records FoundNo Family History Records FoundNo Family History Records FoundNo Family History Records FoundNo Family History Records FoundNo Family History Records Found Advance Directives No Advanced Directives Records FoundDocuments on File Type Date Recorded 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 * Hypertension: Emergency or Urgency ([place]) * Headache ([place]) documented in this encounter* Attachments The following attachments cannot be sent through Care Everywhere. * Head Injury: Closed: General Info ([place]) * Lacerations: Rashida ([place]) documented in this encounter Assessments Diagnosis Hypertensive urgency Unspecified essential hypertension Acute nonintractable headache, unspecified headache type Diagnosis Injury of head, initial encounter- Primary Laceration of scalp, initial encounter Chief Complaint and Reason for Visit Chief Complaint ALF LABWORK ALF LABWORK Chief Complaint ALF LABWORK ALF LAB WORK ALF LABWORK Chief Complaint ALF LABWORK ALF LAB WORK ALF LAB WORK Chief Complaint ALF LABWORK ALF LAB WORK ALF LAB WORK ALF LAB WORK Chief Complaint ALF LAB WOR K ALF LAB WORK LABWORK Chief Complaint ALF LAB WOR K ALF LAB WORK LABWORK LABWORK Chief Complaint ALF LAB WOR K LABWORK LABWORK LABWORK Chief Complaint LABWORK LABWORK LABWORK LABWORK ALF LAB WORK Chief Complaint ALF LABWORK LABWORK ALF LABWORK LABWORK ALF LABWORK ALF LABWORK ALF LAB WORK ALF LAB WORK Chief Complaint ALF LABWORK LABWORK ALF LABWORK ALF LABWORK ALF LAB WORK ALF LAB WORK ALF LABWORK Chief Complaint LABWORK ALF LABWORK ALF LABWORK ALF LAB WORK ALF LAB WORK ALF LABWORK ALF LABWORK ALF LABWORK Chief Complaint ALF LAB WOR K ALF LABWORK ALF LABWORK ALF LABWORK Chief Complaint ALF LABWORK ALF LABWORK ALF LABWORK ALF LABWORK ALF LABWORK LABWORK Chief Complaint ALF LABWORK ALF LABWORK ALF LABWORK LABWORK ALF LAB WORK LABWORK Chief Complaint ALF LABWORK ALF LABWORK LABWORK ALF LAB WORK LABWORK ALF LAB WORK Chief Complaint LABWORK ALF LAB WORK LABWORK ALF LAB WORK ALF LAB WORK ALF LABWORK Chief Complaint LABWORK LABWORK Chief Complaint LABWORK LABWORK LABWORK Chief Complaint ALF LABWORK LABWORK ALF LAB WORK LABWORK ALF LAB WORK ALF LAB WORK Chief Complaint Admit Date ALF LAB WORK March 13, 2024 4:40am ALF LAB WORK June 10, 2024 4: 00am Chief Complaint Admit Date ALF LAB WORK June 10, 2024 4: 00am LABWORK July 08, 2024 5:0 0am Chief Complaint Admit Date ALF LAB WORK June 10, 2024 4: 00am LABWORK July 08, 2024 5:0 0am ALF LAB WORK July 22, 2024 5 :00am Chief Complaint Admit Date ALF LAB WORK June 10, 2024 4: 00am LABWORK July 08, 2024 5:0 0am ALF LAB WORK July 22, 2024 5 :00am ALF LAB WORK July 29, 2024 4 :00am Chief Complaint Admit Date ALF LAB WORK October 21, 2024 5: 00am ALF LAB WORK December 05, 2024 5:00am ALF LAB WORK December 10 5:00am ALF LAB WORK January 07 5:00am ALF LABWORK January 13, 2025 4 :00am Reason for Referral Specialty Diagnoses / Procedures Referred By Contac t Referred To Contact Radiology Diagnoses Calculus of gallbladder without cholecystitis without obstruction Peripancreatic abscess Procedures CT abdomen pelvis w contrast Candie Vieyra PA-C [address] [place] [address] Referral ID Status Reason Start Date Expiration Date V isits Requested Visits Authorized [id number] Pending Review 07/29/2022 01/25/2023 1 1 Referral ID Status Reason Start Date Expiration Date V isits Requested Visits Authorized [id number] Authorized 07/29/2022 01/25/2023 1 1 Specialty Diagnoses / Procedures Referred By Sydnie lincoln Referred To Contact Cardiology Diagnoses Peripheral vascular disease, unspecified (HCC) Venous insufficiency (chronic) (peripheral) Non-pressure chronic ulcer of other part of right foot with fat layer exposed (HCC) Procedures Vascular US lower extremity venous duplex bilateral Demetrius Fenton [address] [facility] [address] [place] [phone] Referral ID Status Reason Start Date Expiration Date Visits Requested Visits Authorized [id number] Pending Review Perform Procedure 06/09/2022 12/06/2022 1 1 Specialty Diagnoses / Procedures Referred By Sydnie t Referred To Contact Radiology Diagnoses Calculus of gallbladder without cholecystitis without obstruction Peripancreatic abscess Procedures CT abdomen pelvis w contrast Candie Vieyra PA-Marvin [address] [place] [address] [place] [address] Referral ID Status Reason Start Date Expiration Date Visits Re quested Visits Authorized [id number] Closed 09/30/2022 10/30/2022 1 1 Additional Source Comments (unrecognized sect ion and content) No Status Records FoundNo Status Records FoundNo Status Records FoundNo Status Records FoundNo Status Records FoundNo Status Records Found INFORMATION SOURCE (unrecogn ized section and content) DATE CREATED AUTHOR 04/05/2019 [facility] DATE CREATED AUTHOR AUTHOR'S ORGANIZ ATION 10/14/2021 [facility] DATE CREATED AUTHOR AUTHOR'S ORGANIZ ATION 11/08/2021 [facility] DATE CREATED AUTHOR AUTHOR'S ORGANIZ ATION 04/11/2024 [facility] DATE CREATED AUTHOR AUTHOR'S ORGANIZ ATION 01/15/2025 [facility] DATE CREATED AUTHOR AUTHOR'S ORGANIZ ATION 02/08/2025 [facility] Reason for Visit (unrecogniz ed section and content) Reason Comments Hypertension Reason Comments Appointment needs outpatient cys toscopy in the OR Reason Comments Head Injury Fall Reason Comments Leg Swelling Reason Onset Date Comments OTHER 07/15/2022 Reason Comments New Patient ALS HOOKMAN refer by angel fenton gallbladder Specialty Diagnoses / Procedures Referred By Sydnie lincoln Referred To Contact General Surgery Diagnoses Disease of gallbladder, unspecified Procedures NE ABDOMEN WALL SURG PROC UNLISTED Demetrius Fenton [address] [facility] [address] [place] [address] Brady Powell MD [address] [place] [address] Referral ID Status Reason Start Date Expiration Date V isits Requested Visits Authorized [id number] Closed Specialty Services Required 07/28/2022 01/27/2023 1 1 Specialty Diagnoses / Procedures Referred By Sydnie lincoln Referred To Contact Radiology Diagnoses Calculus of gallbladder without cholecystitis without obstruction Peripancreatic abscess Procedures CT abdomen pelvis w contrast Candie Vieyra PA-C [address] [place] [address] [place] [address] Referral ID Status Reason Start Date Expiration Date Visits Re quested Visits Authorized [id number] Closed 09/30/2022 10/30/2022 1 1 Reason Comments Post-op ALS PO 2WK LAP RAMBO Reason Comments Suicidal Pt arrived via [facility]. Pt told staff at detention that he was thinking about driving his [...] on breathing EDWARDO (acute kidney injury) (CMS/HCC) ([facility]) Chest pain, unspecified type Procedures . Brenda Hagan [address] [place] [address] [facility] [address] [place] [address] Referral ID Status Reason Start Date Expiration Date Visits Re quested Visits Authorized [id number] 1 1 Reason Comments Follow Up Chronic daily headac hes Source Comments (unrecognize d section and content) In the event this informatio n is protected by the Federal Confidentiality of Alcohol and Drug Abuse Patient Records regulations: The Federal rules restrict any use of the information to criminally investigate or prosecute any alcohol or drug abuse patient.[facility] the event this information is protected by the Federal Confidentiality of Alcohol and Drug Abuse Patient Records regulations: The Federal rules restrict any use of the information to criminally investigate or prosecute any alcohol or drug abuse patient.[facility] the event this information is protected by the Federal Confidentiality of Alcohol and Drug Abuse Patient Records regulations: The Federal rules restrict any use of the information to criminally investigate or prosecute any alcohol or drug abuse patient.[facility] the event this information is protected by the Federal Confidentiality of Alcohol and Drug Abuse Patient Records regulations: The Federal rules restrict any use of the information to criminally investigate or prosecute any alcohol or drug abuse patient.[facility] Telephone Encounter - Raul Banks - 01/24/2020 3:36 PM EDTTelephone Encounter - Margaret Christopher ([facility]) - 01/23/2020 5:10 PM EDT Miscellaneous Notes (unrecog nized section and content) Pt seen at [place], [place] to schedule cysto, dilation in pt/guardian are interested. If they'd prefer [place] let one of our House docs know Raul Banks MD Please contact the patients guardian and arrange a cystoscopy in the OR as an outpatient with Dr. Banks Urinary retention, bulbar stricture He will be discharged to [place] documented in this encounter Care Teams (unrecognized [...] WICK Attending Provider, Referring Provi javier Active Resident Buyer Relationship Specialty Start Date End Date Yogi Smith MD [address] [place] [address] PCP - General Family Medicine 04/10/21 Resident Buyer Relationship Specialty Start Date End Date Yogi Smith MD [address] [place] [address] PCP - General Family Medicine 04/10/21 Resident Buyer Relationship Specialty Start Date End Date Yogi Smith MD [address] [place] [address] PCP - General Family Medicine 04/10/21 Resident Buyer Relationship Specialty Start Date End Date Yogi Smith MD [address] [place] [address] PCP - General Family Medicine 04/10/21 Team Status: Inactive Member Role Status Dates Gunnar Cummings Attending Provider Active Team Status: Inactive Member Role Status Dates Demetrius Fenton Attending Provider Active Team Status: Active Member Role Status Dates Demetrius Fenton Attending Provider Active Resident Buyer Relationship Specialty Start Date End Date Demetrius Fenton [address] [facility] [address] [place] [phone] PCP - General Internal Medicine 06/09/22 Resident Buyer Relationship Specialty Start Date End Date Demetrius Fenton [address] [place] [phone] PCP - General Internal Medicine 06/09/22 Resident Buyer Relationship Specialty Start Date End Date Demetrius Fenton [address] [place] [phone] PCP - General Internal Medicine 06/09/22 Resident Buyer Relationship Specialty Start Date End Date Demetrius Fenton [address] [place] [phone] PCP - General Internal Medicine 06/09/22 Resident Buyer Relationship Specialty Start Date End Date Demetrius Fenton [address] [place] [phone] PCP - General Internal Medicine 06/09/22 Resident Buyer Relationship Specialty Start Date End Date Demetrius Fenton [address] [place] [phone] PCP - General Internal Medicine 06/09/22 Resident Buyer Relationship Specialty Start Date End Date Demetrius Fenton [address] [place] [phone] PCP - General Internal Medicine 06/09/22 Resident Buyer Relationship Specialty Start Date End Date Demetrius Fenton [address] [place] [phone] PCP - General Internal Medicine 06/09/22 Resident Buyer Relationship Specialty Start Date End Date Demetrius Fenton [address] [place] [phone] PCP - General Internal Medicine 06/09/22 Resident Buyer Relationship Specialty Start Date End Date Demetrius Fenton [address] [place] [phone] PCP - General Internal Medicine 06/09/22 Resident Buyer Relationship Specialty Start Date End Date Demetrius Fenton [address] [place] [phone] PCP - General Internal Medicine 06/09/22 Resident Buyer Relationship Specialty Start Date End Date Demetrius Fenton [address] [place] [phone] PCP - General Internal Medicine 06/09/22 Team Status: Inactive Member Role Status Dates Gunnar WICK Attending Provider, Referring Prov ider Active Resident Buyer Relationship Specialty Start Date End Date Demetrius Fenton MD [address] [place] [address] PCP - General Internal Medicine 06/16/23 Resident Buyer Relationship Specialty Start Date End Date Demetrius Fenton [address] [place] [phone] PCP - General Internal Medicine 06/09/22 Resident Buyer Relationship Specialty Start Date End Date Demetrius Fenton MD [address] [place] [address] PCP - General Internal Medicine 06/16/23 Resident Buyer Relationship Specialty Start Date End Date Demetrius Fenton [address] [place] [phone] PCP - General Internal Medicine 06/09/22 Resident Buyer Relationship Specialty Start Date End Date Demetrius Fenton [address] [place] [address] PCP - General Internal Medicine 06/09/22 Resident Buyer Relationship Specialty Start Date End Date Demetrius Fenton [address] [place] [phone] PCP - General Internal Medicine 06/09/22 Resident Buyer Relationship Specialty Start Date End Date Demetrius Fenton [address] [place] [phone] PCP - General Internal Medicine 06/09/22 Resident Buyer Relationship Specialty Start Date End Date Demetrius Fenton [address] [place] [phone] PCP - General Internal Medicine 06/09/22 Resident Buyer Relationship Specialty Start Date End Date Demetrius Fenton [address] [place] [phone] PCP - General Internal Medicine 06/09/22 Resident Buyer Relationship Specialty Start Date End Date Demetrius Fenton [address] [place] [phone] PCP - General Internal Medicine 06/09/22 Resident Buyer Relationship Specialty Start Date End Date Demetrius Fenton [address] [place] [phone] PCP - General Internal Medicine 06/09/22 Resident Buyer Relationship Specialty Start Date End Date Demetrius Fenton [address] [place] [phone] PCP - General Internal Medicine 06/09/22 Resident Buyer Relationship Specialty Start Date End Date Demetrius Fenton [address] [place] [phone] PCP - General Internal Medicine 06/09/22 Resident Buyer Relationship Specialty Start Date End Date Demetrius Fenton [address] [place] [address] PCP - General Internal Medicine 06/09/22 Resident Buyer Relationship Specialty Start Date End Date Demetrius Fenton [address] [place] [address] PCP - General Internal Medicine 06/09/22 Resident Buyer Relationship Specialty Start Date End Date Demetrius Fenton [address] [place] [address] PCP - General Internal Medicine 06/09/22 Resident Buyer Relationship Specialty Start Date End Date Demetrius Fenton MD [address] [place], [place] [phone] PCP - General Internal Medicine 06/16/23 Team [...] Joslyn Reyes RN) 140 (Given - Provider: Llili Barragan, SO) bisacodyl (Dulcolax) suppository 10 mg [...] BE BASED ON THE PRIMARY CLINICAL RECORDS. [facility] [employer] [facility]. provides no warranty or guarantee of the accuracy or completeness of information in this document.
[2025-04-07 08:05] LABS: Hematocrit 44.1 % (40-54); Hemoglobin 15.3 g/dL (13.0-16.5); Mean Corp Hgb Conc 34.7 g/dL (32-36); Mean Corpuscular Volume 89.6 fL (80-94); Mean Platelet Vol. 11.5 fl (6.2-12.0); Platelet Count 144 K/mm3 (150-450); RBC Distribution Width CV 12.6 % (11.6-14.6); RBC Distribution Width SD 40.6 fl (35.1-43.9); Red Blood Count 4.92 M/mm3 (4.6-6.2); White Blood Count 8.3 K/mm3 (4.4-11.0)
[2025-04-07 08:19] LABS: Anion Gap 11 (7-18); BUN 15 mg/dL (4-19); BUN/Creat Ratio 13.8 RATIO (10-20); Calcium,Total 9.6 mg/dL (7.6-11.0); Carbon Dioxide 24.2 mmol/L (20.0-29.0); Chloride 99 mmol/L (96-106); Glucose 153 mg/dL (70-99); Potassium 4.5 mmol/L (3.5-5.1)
== END ==
LOC: OLS.SANC 05:00
PROVIDERS: Visit Provider Internal Medicine
DX: I10 Essential (primary) hypertension (principal); E78.5 Hyperlipidemia, unspecified; E87.6 Hypokalemia
CPT/HCPCS: 36415; 80048; 85027